=== PATIENT | female | born 1940 | race Caucasian/White ===

== ENCOUNTER 2023-04-26 13:23 | Outpatient (OUT) | payer MEDICARE, SELFPAY ==
--- NOTE | 2023-04-26 13:43 | PM.CN ---
Consult Note: HPI Data of Consult Patient: known to practice within the last 3 years Consult date: 04/26/23 Requesting Physician: BUSTER BOYKIN NP Primary Care Provider: SHANDA CLARK Consult Narrative Narrative: Patient is here for f/u of low back pain. Pain 3/10 unchanged from last visit . No radicular sx today. No new sensorimotor or bowel or bladder issues. No adverse medication SE. Medication regimen assists patient in ability to complete ADLs. [id number]. She states she used to see ortho for knee injections. She states they no longer do the injections. She would like to start getting them here. She states last injection was 08/03 with gel in right knee and steroid left knee. We will get records from there. We discussed PT for strengthening and she declined. cc:: CC: BUSTER BOYKIN NP Review of Systems ROS Status of ROS 10 or more systems reviewed and unremarkable except as noted in history and below Musculoskeletal Reports: back pain and joint pain Exam Constitutional Documenting provider has reviewed patient's vital signs: yes Common normals: no apparent distress, oriented x3, healthy appearing, alert and well nourished Orientation/consciousness: Yes awake, Yes oriented to person, Yes oriented to place and Yes oriented to time HENMT Common normals: normocephalic, nasal mucous membranes and turbinates normal and moist oral mucous membranes Respiratory Common normals: normal respiratory effort, no retractions and no use of accessory muscles Effort & inspection: able to speak in complete sentences and symmetric chest movement Back & Pelvis Lumbar spine/lower back: normal to inspection, ROM limited, pain with ROM, paraspinal muscle tenderness and other soft tissue findings (positive facet load) Extremity Common normals: normal capillary refill Other: bilat knee enlargement, muscle strength 3/5 bilat with intact sensation. walks with walker Assessment and Plan Assessment and Plan (1) Lumbar spondylosis: (2) Muscle spasm: (3) Knee osteoarthritis: Plan f/u in 3 months records from ortho
== END 2023-04-26 13:24 ==
PROVIDERS: PCP Family Medicine; Visit Provider Nurse Practitioner
DX: M47.816 Spondylosis without myelopathy or radiculopathy, lumbar region (principal); M62.838 Other muscle spasm; M17.9 Osteoarthritis of knee, unspecified
CPT/HCPCS: G0463

== ENCOUNTER 2023-05-16 09:07 | Outpatient (OUT) | payer MEDICARE, SELFPAY ==
[2023-05-16 09:56] LABS: Estimated Average Glucose 174 mg/dL; Glycohemoglobin A1C 7.7 % (4.5-6.2)
[2023-05-16 10:51] LABS: Alanine Aminotransferase 35 U/L (14-59); Albumin Globulin Ratio 0.8; Albumin Level 3.3 g/dL (3.4-5.0); Alkaline Phosphatase 135 U/L (46-116); Anion Gap 13.1; Aspartate Amino Transferase 23 U/L (15-37); BUN Creatinine Ratio 28.2; Bilirubin Total 0.4 mg/dL (0.2-1.0); Calcium 9.8 mg/dL (8.5-10.1); Carbon Dioxide 28.2 mmol/L (21.0-32.0); Chloride 103 mmol/L (98-107); Chol HDL Ratio 2.9; Cholesterol 162 mg/dL (<=200); Estimated GFR (African America 33 (>=60); Estimated GFR (Non-African Ame 27 (>=60); Globulin 4.1 g/dL; Glucose 179 mg/dL (74-106); HDL Cholesterol 55 mg/dL (40-60); Potassium 4.3 mmol/L (3.5-5.1); Sodium 140 mmol/L (136-145); Thyroid Stimulating Hormone 3.503 uIU/mL (0.358-3.740); Total Protein 7.4 g/dL (6.4-8.2); Triglycerides 205 mg/dL (<=150)
== END 2023-05-16 09:08 | disposition home or self-care (01) ==
LOC: LAB 09:07
PROVIDERS: PCP Family Medicine; Visit Provider Family Medicine
DX: E11.22 Type 2 diabetes mellitus with diabetic chronic kidney disease (principal); I12.9 Hypertensive chronic kidney disease with stage 1 through stage 4 chronic kidney disease, or unspecified chronic kidney disease; N18.32 Chronic kidney disease, stage 3b; Z79.4 Long term (current) use of insulin; E78.2 Mixed hyperlipidemia
CPT/HCPCS: 36415; 80053; 80061; 83036; 84443

== ENCOUNTER 2023-07-26 13:19 | Outpatient (OUT) | payer MEDICARE, SELFPAY ==
--- NOTE | 2023-07-26 13:31 | PM.CN ---
Consult Note: HPI Data of Consult Patient: known to practice within the last 3 years Requesting Physician: BUSTER BOYKIN NP Primary Care Provider: SHANDA CLARK Consult Narrative Reason for consult: f/u Narrative: Adore Wolff a pleasant 82 year old female presents for evaluation of chronic back and bilateral knee pain. Today rating pain 4/10. Is interested in bilateral knee injections which she has benefitted from in the past. cc:: CC: BUSTER BOYKIN NP Review of Systems ROS Status of ROS 10 or more systems reviewed and unremarkable except as noted in history and below Musculoskeletal Reports: joint pain (bilateral Knees) Meds Home Medications and Allergies Home Medications Medication Instructions Recorded Confirmed Type GLUCOSAMINE DAILY 04/26/23 History PRO AIR 04/26/23 History RAMIPRIDE 10 mg DAILY 04/26/23 History allopurinol 200 mg tablet 200 mg PO DAILY 04/26/23 04/26/23 History aspirin 81 mg tablet,delayed 81 mg PO DAILY 04/26/23 04/26/23 History release atorvastatin 80 mg tablet 80 mg PO DAILY 04/26/23 04/26/23 History baclofen 10 mg tablet 10 mg PO DAILY 04/26/23 04/26/23 History fluticasone furoate 100 1 inh inhalation DAILY 04/26/23 04/26/23 History mcg-vilanterol 25 mcg/dose inhalation powder (Breo Ellipta) furosemide 80 mg tablet 80 mg PO BID 04/26/23 04/26/23 History furosemide 80 mg tablet (Lasix) 80 mg PO BID 04/26/23 04/26/23 History insulin glargine 100 unit/mL 50 unit subcut DAILY 04/26/23 04/26/23 History subcutaneous solution (Lantus U-100 Insulin) insulin lispro 100 unit/mL 6 unit subcut TID 04/26/23 04/26/23 History subcutaneous pen metoclopramide HCl 10 mg tablet 10 mg PO BID 04/26/23 04/26/23 History omeprazole 20 mg tablet,delayed 20 mg PO BID 04/26/23 04/26/23 History release pregabalin 50 mg capsule (Lyrica) 50 mg PO BID 04/26/23 04/26/23 History theophylline 400 mg 400 mg PO DAILY 04/26/23 04/26/23 History tablet,extended release 24 hr tramadol 100 mg tablet 100 mg PO DAILY 04/26/23 04/26/23 History Allergies Allergy/AdvReac Type Severity Reaction Status Date / Time adhesive tape Allergy Unknown Verified 04/26/23 14:45 povidone-iodine Allergy Unknown Verified 04/26/23 14:45 [From Betadine] red dye Allergy Unknown Verified 04/26/23 14:45 Sulfa (Sulfonamide Allergy Unknown Verified 04/26/23 14:45 Antibiotics) tetracycline Allergy Unknown Verified 04/26/23 14:45 Exam Constitutional Documenting provider has reviewed patient's vital signs: yes Common normals: no apparent distress, oriented x3, healthy appearing, alert and well nourished General appearance: cooperative HENMT Common normals: normocephalic, hearing grossly normal bilaterally and moist oral mucous membranes Head and scalp: normocephalic Eye Common normals: PERRL Pupil: PERRL Neck & C-Spine Common normals: full ROM General: normal visual inspection Chest Common normals: inspection of chest normal Respiratory Common normals: normal respiratory effort, no retractions and no use of accessory muscles Back & Pelvis Lumbar spine/lower back: ROM limited and pain with ROM Extremity Right lower extremity: knee joint Left lower extremity: knee joint Other: enlarged diameter bilateral knees. pain with rom and weight bearing. limited ROM due to pain Neuro Common normals: oriented x3, CN's II-XII intact bilaterally, moves all extremities, no focal motor deficits, no sensory deficits noted and deep tendon reflexes 2+ bilaterally Sensorium/orientation: alert Gait (neuro): assistive device used walker Motor exam: strength 5/5 throughout and no movement abnormalities noted Psych Common normals: mental status grossly normal, thought process normal, cooperative, affect normal, speech normal and activity/motor behavior normal Speech: normal speech Thought process: normal thought process Results Additional Findings Additional findings: I have checked an OAR[facility] report on this patient today and there are no aberrancies noted in the prescribing history.?? A drug screen was completed and reviewed within the last year, and if there has not been a drug screen completed we ordered one today to monitor higher risk, state monitored pain medication use. As part of providing excellent, safe, comprehensive care, the following was completed at our patient's visit: 1. A medication reconciliation and review to ensure accurate knowledge of current/active medications, including asking our patients to inform us about any [id number] medications or herbal remedies/nutritional supplements/alternative remedies. 2. A review to specifically ensure our patients have had annual screening for: elevated body mass index (BMI), tobacco use, screening for depression, and screening for unhealthy alcohol use. When screening is concerning, patients are provided with education and the specific recommendation to discuss the concerning health issue and treatment options with their primary care provider. Assessment and Plan Assessment and Plan (1) Knee osteoarthritis: (2) Muscle spasm: (3) Lumbar spondylosis: (4) Bilateral knee pain: (5) Chronic prescription opiate use: Assessment and Plan: I feel these medications are improving the patient's quality of life and allow them to tolerate activities of daily living as well as participate in recreational activity.? The patient does not report intolerable side effects. The patient is NOT opioid naive and non-pharmacologic and non-opioid treatment has failed to significantly relieve the patient's pain and improve functionality. The patient has a diagnosis that is related to a somatic or visceral pain etiology. ? ?? I reviewed with the patient the potential risks and side effects with the use of? opioid medications including but not limited to respiratory depression,? sedation, and even . I verified the patient has access to naloxone should? these effects occur. I advised the patient to avoid the use of any other? sedation substances including alcohol, THC, and benzodiazepines while? taking opioid medications due to the risk of compounding side effects and? detrimental outcomes. I reviewed the PRACTICE MANAGER, pain treatment agreement, urine? drug screen, and opioid start talking forms. The patient was advised to let? their family know they had Naloxone in case they would need to administer? the medication.? ? Plan continue current medication regimen, tolerating well without side effects patients was argumentative and disruptive at todays visit in regards to opiate prescription and fill dates, educated on the regulations regarding opioids. Continued to be argumentative and asked for additional pills for as needed so she does not run out. proceed with bialteral knee injections in OR under fluoroscopy with gel one declining PT and additional therapy for back pain f/u after injection
== END 2023-07-26 13:20 | disposition home or self-care (01) ==
PROVIDERS: PCP Family Medicine; Visit Provider Nurse Practitioner
DX: M17.9 Osteoarthritis of knee, unspecified (principal); M62.838 Other muscle spasm; M47.816 Spondylosis without myelopathy or radiculopathy, lumbar region; M25.562 Pain in left knee; M25.561 Pain in right knee; Z79.891 Long term (current) use of opiate analgesic
CPT/HCPCS: G0463

== ENCOUNTER 2023-08-13 10:09 | Outpatient (OUT) | payer MEDICARE, SELFPAY ==
[2023-08-13 10:40] LABS: Hematocrit 35.3 % (36.0-48.0); Hemoglobin 11.4 g/dL (12.0-16.0); Mean Corpuscular HGB Conc 32.3 g/dL (29.9-35.2); Mean Corpuscular Hemoglobin 30.6 pg (26.7-34.0); Mean Corpuscular Volume 94.9 fL (81.0-99.0); Mean Platelet Volume 11.1 fL (9.5-13.5); Platelet Count 196 10^3/uL (150-450); Red Blood Count 3.72 10^6/uL (4.20-5.40); Red Cell Distribution Width 15.5 % (11.0-15.0); White Blood Count 6.6 10^3/uL (4.0-11.0)
[2023-08-13 11:51] LABS: Albumin Level 3.3 g/dL (3.4-5.0); Anion Gap 13.7; BUN Creatinine Ratio 21.7; Calcium 9.3 mg/dL (8.5-10.1); Carbon Dioxide 27.5 mmol/L (21.0-32.0); Chloride 102 mmol/L (98-107); Estimated GFR (African America 25 (>=60); Estimated GFR (Non-African Ame 20 (>=60); Glucose 208 mg/dL (74-106); Magnesium 1.4 mg/dL (1.8-2.4); Phosphorus 4.1 mg/dL (2.6-4.7); Potassium 4.2 mmol/L (3.5-5.1); Sodium 139 mmol/L (136-145); Uric Acid 4.7 mg/dL (2.6-6.0)
[2023-08-13 11:52] LABS: Percent Iron Saturation 21.9 %
[2023-08-13 12:38] LABS: Bilirubin Urine NEGATIVE (NEGATIVE); Blood Urine TRACE-I (NEGATIVE); Color Urine LT. YELLOW (YELLOW); Glucose Urine UA >=1000 mg/dL (NEGATIVE); Ketones Urine NEGATIVE (NEGATIVE); Leukocyte Esterase Urine MODERATE (NEGATIVE); Nitrite Urine NEGATIVE (NEGATIVE); Protein Urine TRACE mg/dL (NEG/TRACE); Urobilinogen Urine 0.2 EU/dL (0.2-1.0)
[2023-08-13 12:40] LABS: Clarity Urine SLIGHTLY CLOUDY (CLEAR)
[2023-08-13 12:46] LABS: Creatinine Urine Random 96.96 mg/dL (20.00-300.00); Protein Creatinine Ratio Urine 0.26; Total Protein Urine Random 25.4 mg/dL (<=11.9)
[2023-08-13 12:49] LABS: Bacteria Urine TRACE #/HPF (NONE SEEN); Cast Seen? NONE SEEN #/LPF (NONE SEEN); Crystals Seen? None Seen #/HPF (None Seen); Mucus Urine NONE SEEN (NONE SEEN); RBC Urine 0-2 #/HPF (0-2); Squamous Epithelial Cell Urine NONE SEEN #/LPF (NONE/RARE); WBC Urine 75-100 #/HPF (NONE SEEN)
[2023-08-14 13:10] LABS: PTH, Intact 159 pg/mL (15-65)
== END 2023-08-13 10:10 | disposition home or self-care (01) ==
LOC: LAB 10:09
PROVIDERS: PCP Family Medicine; Visit Provider Internal Medicine
DX: I12.9 Hypertensive chronic kidney disease with stage 1 through stage 4 chronic kidney disease, or unspecified chronic kidney disease (principal); E11.22 Type 2 diabetes mellitus with diabetic chronic kidney disease; N25.81 Secondary hyperparathyroidism of renal origin; D63.1 Anemia in chronic kidney disease; E79.0 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 inflammatory arthritis and tophaceous disease; N18.32 Chronic kidney disease, stage 3b
CPT/HCPCS: 36415; 80069; 81001; 82306; 82570; 82728; 83540; 83550; 83735; 83970; 84156; 84550; 85027

== ENCOUNTER 2023-08-14 10:33 | Day surgery (SDC) | payer MEDICARE, SELFPAY ==
[2023-08-14 11:21] VITALS: BP 172/79; PULSE 94; RESP 18; TEMP 36.4; O2SAT 96
[2023-08-14 11:27] LABS: Glucometer 192 mg/dL (74-106)
[2023-08-14] MEDS: LIDOCAINE HCL 2% PF 100 MG/5 ML VIAL INJ (12:16)
[2023-08-14] MEDS: IOHEXOL 240 MG/ML - 10 ML VIAL INJ (12:16)
[2023-08-14 12:21] VITALS: BP 171/71; BP 174/76; PULSE 74; PULSE 75; RESP 16; RESP 18; O2SAT 95; O2SAT 96
--- NOTE | 2023-08-14 13:03 | W.PM.PROCNOT ---
Date of procedure: 08/14/23 Pre-op diagnosis: Bilateral knee osteoarthritis Post-op diagnosis: same as pre-op Procedure: Procedure: Bilateral knee joint injection using Gel One 3ml. Immediate complications none. Anesthesia: 2% lidocaine plain for skin wheal. After informed consent was obtained, patient brought to the OR placed in the supine position. Skin overlying the area was prepped and draped using Betadine. 25-gauge 1/2 inch needle was used for skin wheal over the medial aspect of the right knee joint identified under fluoroscopy. Omnipaque dye was used to confirm needle tip placement within the knee joint space 0.5 mL use of the injection. Subsequently 3ml of Gel One was injected into the space. No indication of intravascular or intraneuronal needle tip placement or injection was noted post procedure. The needle was removed, patient transferred to Recovery room in stable condition to discharged home after meeting criteria. Anesthesia: Local Surgeon: Harini Carrillo Condition: stable
== END 2023-08-14 12:35 | disposition home or self-care (01) ==
LOC: SURGOUT 10:34
PROVIDERS: PCP Family Medicine; Visit Provider Anesthesiology Pain Medicine
DX: M17.0 Bilateral primary osteoarthritis of knee (principal); Z79.4 Long term (current) use of insulin
CPT/HCPCS: 20610; 36415; 77002; 82948; J7326; Q9966

== ENCOUNTER 2023-08-30 12:48 | Outpatient (OUT) | payer MEDICARE, SELFPAY ==
--- NOTE | 2023-08-30 13:36 | PM.CN ---
Consult Note: HPI Data of Consult Requesting Physician: Pao Good NP Primary Care Provider: SHANDA CLARK Consult Narrative Reason for consult: f/u Narrative: Adore Wolff an 82 year old female presents for evaluation and management of chronic knee pain and low back pain with radiculopathy. Today rating pain 4/10 in low back and bilateral legs. Knees >90% improvement since gel-1 injections. Patient has been following with nephrology who dc'd her jardiance and decreased lyrica to 50mg daily as GFR is less than 30. Patient would like to discuss continuing medication management for pain. cc:: CC: aPo Good NP Review of Systems ROS Status of ROS 10 or more systems reviewed and unremarkable except as noted in history and below Musculoskeletal Reports: back pain Meds Home Medications and Allergies Home Medications Medication Instructions Recorded Confirmed Type GLUCOSAMINE DAILY 04/26/23 History PRO AIR 04/26/23 History RAMIPRIDE 10 mg DAILY 04/26/23 History allopurinol 200 mg tablet 200 mg PO DAILY 04/26/23 08/14/23 History aspirin 81 mg tablet,delayed 81 mg PO DAILY 04/26/23 08/14/23 History release atorvastatin 80 mg tablet 80 mg PO DAILY 04/26/23 08/14/23 History baclofen 10 mg tablet 10 mg PO DAILY 04/26/23 08/14/23 History fluticasone furoate 100 1 inh inhalation DAILY 04/26/23 08/14/23 History mcg-vilanterol 25 mcg/dose inhalation powder (Breo Ellipta) furosemide 80 mg tablet 80 mg PO BID 04/26/23 08/14/23 History furosemide 80 mg tablet (Lasix) 80 mg PO BID 04/26/23 08/14/23 History insulin glargine 100 unit/mL 50 unit subcut DAILY 04/26/23 08/14/23 History subcutaneous solution (Lantus U-100 Insulin) insulin lispro 100 unit/mL 6 unit subcut TID 04/26/23 08/14/23 History subcutaneous pen metoclopramide HCl 10 mg tablet 10 mg PO BID 04/26/23 08/14/23 History omeprazole 20 mg tablet,delayed 20 mg PO BID 04/26/23 08/14/23 History release pregabalin 50 mg capsule (Lyrica) 50 mg PO BID 04/26/23 08/14/23 History theophylline 400 mg 400 mg PO DAILY 04/26/23 08/14/23 History tablet,extended release 24 hr tramadol 100 mg tablet 100 mg PO DAILY 04/26/23 08/14/23 History tramadol 100 mg tablet,extended 100 mg PO DAILY #30 tabs 08/14/23 Rx release 24 hr Allergies Allergy/AdvReac Type Severity Reaction Status Date / Time adhesive tape Allergy Unknown Verified 08/14/23 11:19 povidone-iodine Allergy Unknown Verified 08/14/23 11:19 [From Betadine] red dye Allergy Unknown Verified 08/14/23 11:19 Sulfa (Sulfonamide Allergy Unknown Verified 08/14/23 11:19 Antibiotics) tetracycline Allergy Unknown Verified 08/14/23 11:19 Exam Constitutional Documenting provider has reviewed patient's vital signs: yes Common normals: no apparent distress, oriented x3, healthy appearing, alert and well nourished General appearance: cooperative HENMT Common normals: normocephalic, hearing grossly normal bilaterally and moist oral mucous membranes Head and scalp: normocephalic Eye Common normals: PERRL Pupil: PERRL Neck & C-Spine Common normals: full ROM General: normal visual inspection Chest Common normals: inspection of chest normal Respiratory Common normals: normal respiratory effort, no retractions and no use of accessory muscles Back & Pelvis Lumbar spine/lower back: ROM limited, pain with ROM and straight leg raise negative bilaterally Other: radiculopathy to bilateral legs at times Extremity Right lower extremity: knee joint Left lower extremity: knee joint Other: enlarged diameter bilateral knees. Neuro Common normals: oriented x3, CN's II-XII intact bilaterally, moves all extremities, no focal motor deficits, no sensory deficits noted and deep tendon reflexes 2+ bilaterally Sensorium/orientation: alert Gait (neuro): antalgic and assistive device used walker Motor exam: strength 5/5 throughout and no movement abnormalities noted Psych Common normals: mental status grossly normal, thought process normal, cooperative, affect normal, speech normal and activity/motor behavior normal Speech: normal speech Thought process: normal thought process Assessment and Plan Assessment and Plan (1) Lumbar radiculopathy, chronic: (2) Lumbar spondylosis: (3) Bilateral knee pain: (4) Knee osteoarthritis: (5) Chronic prescription opiate use: (6) Muscle spasm: Plan due to extreme discomfort from previous DYLAN we discussed TFESI with Dr Curtis as an alternative in the future. Would order bilateral L4-5 TFESI continue current medications, tolerating well without side effect GFR < 30, lyrica 50mg QD continue f/u with nephrology declined trigger point injections f/u 3 months
== END 2023-08-30 12:49 | disposition home or self-care (01) ==
LOC: PM 12:48
PROVIDERS: PCP Family Medicine; Visit Provider Nurse Practitioner
DX: M54.16 Radiculopathy, lumbar region (principal); M47.896 Other spondylosis, lumbar region; M25.562 Pain in left knee; M25.561 Pain in right knee; M17.9 Osteoarthritis of knee, unspecified; Z79.891 Long term (current) use of opiate analgesic; M62.838 Other muscle spasm
CPT/HCPCS: G0463

== ENCOUNTER 2023-10-15 08:58 | Day surgery (SDC) | payer MEDICARE, SELFPAY ==
[2023-10-15 10:00] LABS: Glucometer 145 mg/dL (74-106)
[2023-10-15 10:02] VITALS: BP 160/81; PULSE 70; RESP 18; TEMP 36.5; O2SAT 94
[2023-10-15] MEDS: IOHEXOL 240 MG/ML - 10 ML VIAL 24 MG INJ (10:34)
[2023-10-15] MEDS: BUPIVACAINE HCL 0.25% PF 25 MG/10 ML VIAL INJ (10:34)
[2023-10-15] MEDS: TRIAMCINOLONE ACETONIDE 40 MG/ML VIAL 80 MG INJ (10:34)
[2023-10-15] MEDS: 0.9 % SODIUM CHLORIDE 10 ML INJ (10:34)
[2023-10-15] MEDS: LIDOCAINE HCL 2% PF 100 MG/5 ML VIAL 3 ML INJ (10:34)
--- NOTE | 2023-10-15 10:40 | W.PM.PROCNOT ---
Date of procedure: 10/15/23 Pre-op diagnosis: Lumbar stenosis with neurogenic claudication Post-op diagnosis: same as pre-op Procedure: Procedure: Bilateral L4-5 transforaminal epidural steroid injection Medications: Bupivacaine 0.25% 2cc, lidocaine 2% 1cc, kenalog 80mg The patient was seen and examined in the preoperative holding area.? Informed consent was obtained and placed on the chart.? Patient was brought to the medical procedure unit and placed in the prone position where a timeout was completed verifying the correct patient, procedure site, position, and planned special equipment using sterile aseptic technique.? Under direct fluoroscopic visualization a 25-gauge Quincke tipped spinal needle was advanced at level left L4-5 to the designated neural foramen where contrast dye was injected to show adequate spread.? There was no evidence of vascular or adverse uptake.? Epidural spread was appreciated.? The above-mentioned injectate was then placed in a 1.5 mL aliquot preceded by negative aspiration.? The needle was removed. The same procedure, at the same level, was completed on the opposite side. ? Patient was taken to the postprocedural recovery area and monitored for an appropriate length of time before found suitable for discharge in the accompaniment of a responsible adult. Anesthesia: Local Surgeon: Christian Curtis Pathology: none sent Condition: stable Disposition: no change
[2023-10-15 10:43] VITALS: BP 217/99; BP 221/98; PULSE 72; PULSE 75; RESP 16; RESP 18; O2SAT 98; O2SAT 99
== END 2023-10-15 10:45 | disposition home or self-care (01) ==
PROVIDERS: PCP Family Medicine; Visit Provider Anesthesiology
DX: M48.062 Spinal stenosis, lumbar region with neurogenic claudication (principal); Z79.4 Long term (current) use of insulin
CPT/HCPCS: 36415; 64483; 82948; Q9966

== ENCOUNTER 2023-10-24 15:06 | Outpatient (OUT) | payer MEDICARE, SELFPAY ==
--- NOTE | 2023-10-24 15:41 | PM.CN ---
Consult Note: HPI Data of Consult Patient: known to practice within the last 3 years Requesting Physician: Pao Good NP Primary Care Provider: SHANDA CLARK Consult Narrative Reason for consult: f/u Narrative: Adore Wolff an 82 year old female presents for evaluation and management of chronic low back pain. Today pain 01/19. Patient reporting 80% ongoing relief of symptoms as a result of recent bilateral L4-5 TFESI. Patients CKD continues to remain GFR < 30. Patient finds benefit from current medication regimen, with mild drowsiness. cc:: CC: Pao Good NP Review of Systems ROS Status of ROS 10 or more systems reviewed and unremarkable except as noted in history and below Musculoskeletal Reports: back pain Meds Home Medications and Allergies Home Medications Medication Instructions Recorded Confirmed Type GLUCOSAMINE DAILY 04/26/23 History PRO AIR 04/26/23 History RAMIPRIDE 10 mg DAILY 04/26/23 History allopurinol 200 mg tablet 200 mg PO DAILY 04/26/23 10/15/23 History aspirin 81 mg tablet,delayed 81 mg PO DAILY 04/26/23 10/15/23 History release atorvastatin 80 mg tablet 80 mg PO DAILY 04/26/23 10/15/23 History baclofen 10 mg tablet 10 mg PO DAILY 04/26/23 10/15/23 History fluticasone furoate 100 1 inh inhalation DAILY 04/26/23 10/15/23 History mcg-vilanterol 25 mcg/dose inhalation powder (Breo Ellipta) furosemide 80 mg tablet 80 mg PO BID 04/26/23 10/15/23 History furosemide 80 mg tablet (Lasix) 80 mg PO BID 04/26/23 10/15/23 History insulin glargine 100 unit/mL 50 unit subcut DAILY 04/26/23 10/15/23 History subcutaneous solution (Lantus U-100 Insulin) insulin lispro 100 unit/mL 6 unit subcut TID 04/26/23 10/15/23 History subcutaneous pen metoclopramide HCl 10 mg tablet 10 mg PO BID 04/26/23 10/15/23 History omeprazole 20 mg tablet,delayed 20 mg PO BID 04/26/23 10/15/23 History release pregabalin 50 mg capsule (Lyrica) 50 mg PO BID 04/26/23 10/15/23 History theophylline 400 mg 400 mg PO DAILY 04/26/23 10/15/23 History tablet,extended release 24 hr tramadol 100 mg capsule 100 mg PO DAILY PRN pain #30 caps 09/13/23 10/15/23 Rx 24h,extended release(25-75) Allergies Allergy/AdvReac Type Severity Reaction Status Date / Time adhesive tape Allergy Unknown Verified 10/15/23 09:55 povidone-iodine Allergy Unknown Verified 10/15/23 09:55 [From Betadine] red dye Allergy Unknown Verified 10/15/23 09:55 Sulfa (Sulfonamide Allergy Unknown Verified 10/15/23 09:55 Antibiotics) tetracycline Allergy Unknown Verified 10/15/23 09:55 Exam Constitutional Documenting provider has reviewed patient's vital signs: yes Common normals: no apparent distress, oriented x3, healthy appearing, alert and well nourished General appearance: cooperative HENMT Common normals: normocephalic, hearing grossly normal bilaterally and moist oral mucous membranes Head and scalp: normocephalic Eye Common normals: PERRL Pupil: PERRL Neck & C-Spine Common normals: full ROM General: normal visual inspection Chest Common normals: inspection of chest normal Respiratory Common normals: normal respiratory effort, no retractions and no use of accessory muscles Back & Pelvis Lumbar spine/lower back: ROM limited, pain with ROM and straight leg raise negative bilaterally Extremity Right lower extremity: knee joint Left lower extremity: knee joint Other: enlarged diameter bilateral knees. Neuro Common normals: oriented x3, CN's II-XII intact bilaterally, moves all extremities, no focal motor deficits, no sensory deficits noted and deep tendon reflexes 2+ bilaterally Sensorium/orientation: alert Gait (neuro): antalgic and assistive device used walker Motor exam: strength 5/5 throughout and no movement abnormalities noted Psych Common normals: mental status grossly normal, thought process normal, cooperative, affect normal, speech normal and activity/motor behavior normal Speech: normal speech Thought process: normal thought process Results Additional Findings Additional findings: I have checked an [facility]AR[facility] report on this patient today and there are no aberrancies noted in the prescribing history.?? A drug screen was completed and reviewed within the last year, and if there has not been a drug screen completed we ordered one today to monitor higher risk, state monitored pain medication use. As part of providing excellent, safe, comprehensive care, the following was completed at our patient's visit: 1. A medication reconciliation and review to ensure accurate knowledge of current/active medications, including asking our patients to inform us about any [id number] medications or herbal remedies/nutritional supplements/alternative remedies. 2. A review to specifically ensure our patients have had annual screening for: elevated body mass index (BMI), tobacco use, screening for depression, and screening for unhealthy alcohol use. When screening is concerning, patients are provided with education and the specific recommendation to discuss the concerning health issue and treatment options with their primary care provider. Assessment and Plan Assessment and Plan (1) Lumbar radiculopathy, chronic: (2) Chronic prescription opiate use: (3) Bilateral knee pain: (4) Knee osteoarthritis: (5) Muscle spasm: (6) Lumbar spondylosis: (7) Chronic kidney disease: Assessment and Plan: GFR less than 30 Plan benefits vs risks discussed with current medication regimen and CKD with GFR less than 30 stop ER tramadol switch to tramadol 50mg BID PRN caution baclofen 10mg HS continue lyrica 50mg daily (max dose per employment agency manager) f/u 2-3 months, consider repeat DYLAN
== END 2023-10-24 15:07 | disposition home or self-care (01) ==
LOC: PM 15:06
PROVIDERS: PCP Family Medicine; Visit Provider Nurse Practitioner
DX: M54.16 Radiculopathy, lumbar region (principal); Z79.891 Long term (current) use of opiate analgesic; M25.561 Pain in right knee; M25.562 Pain in left knee; M17.0 Bilateral primary osteoarthritis of knee; M62.838 Other muscle spasm; M47.816 Spondylosis without myelopathy or radiculopathy, lumbar region; N18.9 Chronic kidney disease, unspecified
CPT/HCPCS: G0463

== ENCOUNTER 2023-10-31 09:12 | Outpatient (OUT) | payer MEDICARE, SELFPAY ==
--- OUTSIDE RECORDS SUMMARY | 2023-10-31 09:36 | XMS_ITS | CCD ---
Author Name Unknown Address [address] [place] [address] Organization [facility] Care Team Providers Care Network Project Manager Name Role Phone ROBERTO PARHAMAB A Attending Unavailable MOE PARHAM Admitting Unavailable ALEISHALOAMY, FERNIE Referring Unavailable FURLONG, FERNIE Primary Care Unavailable Tammy, Gia Unavailable STERN ., DR LUISA Page Attending Unavailable STERN ., DR LUISA Page Consulting Unavailable FURLONG, DR FERNIE Ricketts Primary Care Unavailable STERN ., DR LUISA Page Admitting Unavailable STERN ., DR LUISA Page Attending Unavailable CAMPUZANO ., JONNY Consulting Unavailable FURLONG, DR FERNIE Ricketts Primary Care Unavailable STERN ., DR LUISA Page Admitting Unavailable STERN ., DR LUISA Page Attending Unavailable CAMPUZANO ., JONNY Consulting Unavailable FURLONG, DR FERNIE Ricketts Primary Care Unavailable STERN ., DR LUISA Page Admitting Unavailable FURLONG, DR FERNIE Ricketts Primary Care Unavailable LAKSHMIPATHY ., NARJAZMIN Attending Marianela vailable LAKSHMIPATHY ., NARENDMARJANATH Admitting Marianela vailable STERN ., DR LUISA Page Attending Unavailable CAMPUZANO ., JONNY Consulting Unavailable FURLONG, DR FERNIE Ricketts Primary Care Unavailable STERN ., DR LUISA Page Admitting Unavailable STERN ., DR LUISA Page Attending Unavailable CAMPUZANO ., JONNY Consulting Unavailable FURLONG, DR FERNIE Ricketts Primary Care Unavailable STERN ., DR LUISA Page Admitting Unavailable TAMMY, GIA Admitting Unavailable TAMMY, GIA Attending Unavailable TAMMY, GIA Consulting Unavailable FURLONG, DR FERNIE Ricketts Primary Care Unavailable TAMMY, GIA Attending Unavailable TAMMY, GIA Consulting Unavailable TAMMY, GIA Admitting Unavailable FURLONG, DR FERNIE Ricketts Primary Care Unavailable TAMMY, GIA Admitting Unavailable TAMMY, GIA Attending Unavailable TAMMY, GIA Consulting Unavailable FURLONG, DR FERNIE Ricketts Primary Care Unavailable FURLONG, DR FERNIE Ricketts Admitting Unavailable FURLONG, DR FERNIE Ricketts Attending Unavailable FURLONG, DR FERNIE Ricketts Consulting Unavailable FURLONG, DR FERNIE Ricketts Primary Care Unavailable STERN ., DR LUISA Page Attending Unavailable JONNY HERRERA Consulting Unavailable FURLONG, DR FERNIE Ricketts Primary Care Unavailable STERN ., DR LUISA Page Admitting Unavailable Kirsten RAND, Christian Rodríguez Attending Unavailable Allergies Allergy Classification Reported Allergen(s) Allergy Type Date of Onset Reaction(s) Facility Adhesive Tape (1 source) Adhesive Tape Substance Allergy 3 [facility] Povidone-Iodine (1 source) Povidone-Iodine Drug Allergy 3 [facility] Sulfonamides (antibiotic) (1 source) Sulfonamides (Antibiotic) Drug Allergy 3 [facility] Tetracyclines (antibiotic) (1 source) Tetracyclines Drug Allergy 3 [facility] (8 sources) Povidone-Iodine Drug Allergy rash [email or web address] [facility] Other (9 sources) Sulfonamides (Antibiotic) Propensity to adverse reactions rash [facility] Other (9 sources) Tetracycline Drug Allergy hives [facility] Other (9 sources) Adhesive 1 x6yd Drug allergy rash [facility] Other (9 sources) Amlodipine & Diet Manage Prod Drug allergy rash [facility] Other (2 sources) Povidone-Iodine; Translations: [Betadine] Drug Allergy 3 rash [facility] (1 source) Contrast media Drug allergy (disorder) [facility] (1 source) Desonide Drug Allergy 3 [facility] (1 source) Sulfonamides (Antibiotic) Drug allergy (disorder) 3 [facility] (1 source) Tetracycline Drug Allergy 3 [facility] Medications Current Medications Medication Drug Class(es) Dates Sig (Normalized) Sig (Original) acetaminophen 500 mg oral capsule (9 sources) take 1-2 capsules by mouth every six hours as needed Acetaminophen 500 mg 1-2 capsule as needed Orally every 6 hrs Active acetaminophen 325 mg / HYDROcodone bitartrate 5 mg oral tablet (3 sources) Opioid Agonist take 1 tablet by mouth every twelve hours HYDROcodone-Acetamino phen 5-325 MG 1 tablet as needed Orally TWICE A DAY Active [id number] 200 actuat albuterol 0.09 mg/actuat metered dose inhaler (7 sources) beta2-Adrenergic Agonist take 2 puff(s) by inhalation every six hours as needed ProAir HFA 108 (90 Base) MCG/ACT 2 puffs as needed Inhalation every 6 hrs Active allopurinol 100 mg oral tablet (10 sources) Xanthine Oxidase Inhibitor Allopurinol 100 mg TAKE 2 TABLETS ONCE DAILY Active take 1 tablet by willa th every twenty-four hours Allopurinol 100 MG 1 tablet Orally Once a day Active ASA 81 mg (9 sources) take 1 tablet by mouth once daily ASA 81 mg 1 Tablet Oral daily Active atorvastatin 80 mg oral tablet (9 sources) HMG-CoA Reductase Inhibitor take 1 tablet by mouth every twenty-four hours Atorvastatin Calcium 80 MG 1 Tablet Orally daily Active baclofen 10 mg oral tablet (9 sources) gamma-Aminobutyri c Acid-ergic Agonist take 1 tablet by mouth at bedtime Baclofen 10 MG 1 tablet with food or milk Orally at bedtime Active biotin 5 mg oral capsule (9 sources) take 1 capsule by mouth every twenty-four hours Biotin Maximum Strength 5000 MCG 1 capsule Orally Once a day Active Breo Ellipta 200-25 MCG/INH (2 sources) take 1 puff(s) by inhalation once daily Breo Ellipta 200-25 MCG/INH 1 puff Inhalation Once a day Active carvedilol 6.25 mg oral tablet (9 sources) alpha-Adrenergic Vince, beta-Adrenergic Vince take 1 tablet by mouth every twelve hours Carvedilol 6.25 MG 1 tablet with food Oral Twice a day Active 0.5 ml dulaglutide 1.5 mg/ml auto-injector (1 source) GLP-1 Receptor Agonist Trulicity 0.75 MG/0.5ML as directed Subcutaneous ONCE A WEEK Active 15 ml ferric carboxymaltose 50 mg/ml injection (3 sources) Start: 11-24-19 Injectafer 750 MG/15ML as directed Intravenous Nov, Active 30 actuat fluticasone furoate 0.2 mg/actuat / vilanterol 0.025 mg/actuat dry powder inhaler (7 sources) Corticosteroid, beta2-Adrenergic Agonist take 1 puff(s) by inhalation once daily Breo Ellipta 200-25 MCG/INH 1 puff Inhalation Once a day Active furosemide 40 mg oral tablet (16 sources) Loop Diuretic take 2 tablets by mouth every twelve hours Lasix 40 mg 2 Tablet Orally bid Active Glucosamine Chond Triple/Vit D - (9 sources) take 1 tablet by mouth twice daily Glucosamine Chond Triple/Vit D - 1 Tablet Orally bid Active insulin glargine 100 unt/ml injectable solution (9 sources) Insulin Analog inject 46 [IU] by subcutaneous injection once daily Lantus 100 UNIT/ML 46 UNITS Subcutaneous daily Active inject 50 [IU] by stallings bcutaneous injection once daily Lantus 100 UNIT/ML 50 UNITS Subcutaneous daily Active insulin lispro 100 unt/ml injectable solution (9 sources) Insulin Analog inject 6 [IU] by subcutaneous injection before lunch HumaLOG 100 UNIT/ML 6 UNITS Subcutaneous BEFORE LUNCH AND SUPPER Active magnesium oxide 400 mg oral tablet (1 source) Start: 022 take 1 tablet by mouth every twenty-four hours Magnesium Oxide 400 MG 1 tab(s) Orally Once a day for 90 day(s) Jul, Active metoclopramide 10 mg oral tablet (9 sources) Dopamine-2 Receptor Antagonist take 1 tablet by mouth every twenty-four hours Reglan 10 MG 1 tablet before meals Orally ONCE A DAY Active take 1 tablet by mouth every twe lve hours Reglan 10 MG 1 tablet before meals Orally Twice a day Active montelukast 10 mg oral tablet (9 sources) Leukotriene Receptor Antagonist take 1 tablet by mouth every twenty-four hours Montelukast Sodium 10 MG 1 Tablet Orally daily Active Multi For Her 50+ - (9 sources) Multi For Her 50 + - Orally Active [place] 3-6-9 Complex - (9 sources) [place] 3-6-9 Comp fawad - Orally Active omeprazole 20 mg delayed release oral capsule (9 sources) Proton Pump Inhibitor take 1 capsule by mouth every twenty-four hours Omeprazole 20 MG 1 cap(s) Orally Once a day Active take 1 capsule by mo uth every twelve hours Omeprazole 20 MG 1 cap(s) Orally bid Act hoang pregabalin 75 mg oral capsule (9 sources) take 1 capsule by mo uth every twenty-four hours Lyrica 75 MG 1 capsule Orally Once a day Active take 1 capsule by mouth every tw elve hours Lyrica 75 MG 1 capsule Orally Twice a day Active ProAir HFA 108 (90 Base) MCG/ACT (2 sources) take 2 puff(s) by inhalation every six hours as needed ProAir HFA 108 (90 Base) MCG/ACT 2 puffs as needed Inhalation every 6 hrs Active ramipril 10 mg oral capsule (9 sources) Angiotensin Converting Enzyme Inhibitor take 1 capsule by mouth every twenty-four hours Ramipril 10 MG 1 tablet Orally Once a day Active theophylline 400 mg extended release oral tablet (9 sources) Methylxanthine take 1 tablet by mouth every twenty-four hours Theophylline ER 400 MG 1 tablet Orally Once a day Active 24 hr traMADol hydrochloride 100 mg extended release oral tablet (9 sources) Opioid Agonist take 1 tablet by mouth every twenty-four hours traMADol HCl ER 100 MG 1 tablet Orally Once a day Active traMADol HCl 50 MG 1 Tablet Orally 1 TAB Q 6 HOURS PRN Active Problems Active Problems Problem Classification Problem Date Documented Date Episodic/Chronic Chronic kidney disease (20 sources) Chronic kidney disease stage 3; Translations: [Chronic kidney disease, stage 3 (moderate)] Onset: 2 Resolved: 2 Chronic Deficiency and other anemia (9 sources) Anemia of renal disease; Translations: [Anemia in chronic kidney disease] Chronic Deficiency and other anemia (6 sources) Anemia in chronic kidney disease; Translations: [ANEMIA IN CHRONIC KIDNEY DISEASE] Onset: 2 Resolved: 2 Chronic Diabetes mellitus with complications (19 sources) Type 2 diabetes mellitus; Translations: [Type 2 diabetes mellitus with diabetic chronic kidney disease] Onset: 2 Resolved: 2 Chronic Disorders of lipid metabolism (1 source) Mixed hyperlipidemia; Translations: [MIXED HYPERLIPIDEMIA] Onset: 2 Chronic Essential hypertension (1 source) Essential (primary) hypertension; Translations: [ESSENTIAL PRIMARY HYPERTENSION] Onset: 2 Chronic Hypertension with complications and secondary hypertension (20 sources) Hypertensive renal disease; Translations: [Hypertensive chronic kidney disease with stage 1 through stage 4 chronic kidney disease, or unspecified chronic kidney disease] Onset: 2 Resolved: 2 Chronic Other diseases of kidney and ureters (9 sources) Secondary hyperparathyroidism; Translations: [Secondary hyperparathyroidism of renal origin] Chronic Other diseases of kidney and ureters (6 sources) Secondary hyperparathyroidism of renal origin; Translations: [SEC HYPERPARATHYROIDISM RENAL ORIGN] Onset: 2 Resolved: 2 Chronic Other nervous system disorders (1 source) Other chronic pain; Translations: [OTHER CHRONIC PAIN] Onset: 2 Chronic Other nutritional; endocrine; and metabolic disorders (9 sources) Hypomagnesemia; Translations: [Hypomagnesemia] Chronic Other nutritional; endocrine; and metabolic disorders (2 sources) Hypomagnesemia Chronic Other nutritional; endocrine; and metabolic disorders (1 source) Obesity, unspecified; Translations: [OBESITY UNSPECIFIED] Onset: 2 Chronic Other nutritional; endocrine; and metabolic disorders (9 sources) H/O: metabolic disorder; Translations: [Personal history of other endocrine, nutritional and metabolic disease] Episodic Other nutritional; endocrine; and metabolic disorders (6 sources) 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 inflammatory arthritis and tophaceous disease; Translations: [HU W/O SIGNS IA AND TOPHACEOUS DZ] Onset: 2 Resolved: 2 Episodic Spondylosis; intervertebral disc disorders; other back problems (1 source) Postlaminectomy syndrome, not elsewhere classified; Translations: [POSTLAMINECTOMY SYNDROME NEC] Onset: 2 Chronic Spondylosis; intervertebral disc disorders; other back problems (11 sources) Intervertebral disc disorders with radiculopathy, lumbar region; Translations: [Spinal stenosis, lumbar region without neurogenic claudication] Onset: 2 Episodic Unclassified (3 sources) LOW BACK PAIN, UNSPECIFIED; Translations: [LOW BACK PAIN, UNSPECIFIED] Onset: 2 Past or Other Problems Problem Classification Problem Date Documented Da te Episodic/Chronic Chronic kidney disease (2 sources) Chronic kidney disease Other aftercare (1 source) prison (current) use of insulin; 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] Onset: 11-11-2022 Episodic Other connective tissue disease (1 source) Muscle wasting and atrophy, not elsewhere classified, unspecified site; Translations: [MUSCLE WASTING ATROPHY NEC UNS SITE] Onset: 04-27-2022 Episodic Unclassified (1 source) LOW BACK PAIN, UNSPECIFIED; Translations: [LOW BACK PAIN, UNSPECIFIED] Onset: 08-02-2022 Results Test Name Value Interpretation Reference Range Facil ity PTH INTACTon 01-16-2023 PTH, Intact 115 pg/mL Critically high 15-65 [facility] Comment on above: Performed By: #### M G, URIC, RENAL #### [facility] [address] [place] [address] Dr. Nacho Jeffery FERRITINon 01-15-2023 Ferritin [Mass/Vol] 304.0 ng/mL Critically high 8.0-252.0 [facility] Comment on above: Performed By: #### M Jamarcus URIC, RENAL #### [facility] [address] [place] [address] Dr. Nacho Jeffery HEMOGRAM AND PLATELon 2022 Hematocrit (Bld) [Volume fraction] 36.0 % Normal 3 6.0-48.0 [facility] Comment on above: Performed By: #### M Jamarcus URIC, RENAL #### [facility] [address] [place] [address] Dr. Nacho Jeffery Hemoglobin (Bld) [Mass/Vol] 11.6 g/dL Critically low 12.0 -16.0 [facility] Comment on above: Performed By: #### M G, URIC, RENAL #### [facility] [address] [place] [address] Dr. Nacho Jeffery MCH (RBC) [Entitic mass] 29.4 pg Normal 26.7-34.0 [facility] Comment on above: Performed By: #### M G, URIC, RENAL #### [facility] [address] [place] [address] Dr. Nacho Jeffery MCHC (RBC) [Mass/Vol] 32.2 g/dL Normal 29.9-35.2 [facility] Comment on above: Performed By: #### M G, URIC, RENAL #### [facility] [address] [address] [address] Nacho Jeffery MCV (RBC) [Entitic vol] 91.4 fL Normal 81.0-99.0 [facility] Comment on above: Performed By: #### M G, URIC, RENAL #### [facility] [address] [address] [address] Nacho Jeffery PLT 202 103/ul Normal 150-[address] [facility] Comment on above: Performed By: #### M G, URIC, RENAL #### [facility] [address] [address] [address] Nacho Jeffery RBC 3.94 106/ul Critically low 4.20-5.40 [facility] Comment on above: Performed By: #### M G, URIC, RENAL #### [facility] [address] [place] [address] Dr. Nacho Jeffery WBC 5.9 103/ul Normal 4.0-11.0 [facility] Comment on above: Performed By: #### M G, URIC, RENAL #### [facility] [address] [address] [address] Nacho Jeffery IRON AND TIBCon 01-15-2023 % SATURATION 23.4 % Normal [facility] Comment on above: Performed By: #### M G, URIC, RENAL #### [facility] [address] [address] [address] Nacho Jeffery Iron [Mass/Vol] 62.0 ug/dL Normal 50.0-170.0 [facility] Comment on above: Performed By: #### M G, URIC, RENAL #### [facility] [address] [address] [address] Nacho Jeffery TIBC DIRECT 265.0 ug/dL Normal 250.0-450.0 [facility] Comment on above: Performed By: #### M G, URIC, RENAL #### [facility] [address] [address] [address] Nacho Jeffery MAGNESIUMon 01-15-2023 Magnesium [Mass/Vol] 1.5 mg/dL Critically low 1.8-2.4 [facility] Comment on above: Performed By: #### M Jamarcus, URIC, RENAL #### [facility] [address] [address] [address] Nacho Jeffery RENAL FUNCTION PANELon 01-15 Albumin [Mass/Vol] 3.4 g/dL Normal 3.4-5.0 [facility] Comment on above: Performed By: #### M Jamarcus, URIC, RENAL #### [facility] [address] [place] [address] Dr. Nacho Jeffery Calcium [Mass/Vol] 9.2 mg/dL Normal 8.5-10.1 [facility] Comment on above: Performed By: #### M Jamarcus, URIC, RENAL #### [facility] [address] [place] [address] Dr. Nacho Jeffery Chloride [Moles/Vol] 104 mmol/L Normal 98-107 [facility] Comment on above: Performed By: #### M Jamarcus, URIC, RENAL #### [facility] [address] [place] [address] Dr. Nacho Jeffery CO2 [Moles/Vol] 30.8 mmol/L Normal 21.0-32.0 [facility] Comment on above: Performed By: #### M Jamarcus, URIC, RENAL #### [facility] [address] [place] [address] Dr. Nacho Jeffery Creatinine [Mass/Vol] 1.52 mg/dL Critically high 0.55-1.02 [facility] Comment on above: Performed By: #### M G, URIC, RENAL #### [facility] [address] [place] [address] Dr. Nacho Jeffery EGFR-AF NIGERIAN 40 mL/min/1.73m2 Critically low >=60 [facility] Comment on above: Performed By: #### M G, URIC, RENAL #### [facility] [address] [place] [address] Dr. Nacho Jeffery EGFR-NON AF NIGERIAN 33 mL/min/1.73m2 Critically low >=60 [facility] Comment on above: Performed By: #### M G, URIC, RENAL #### [facility] [address] [address] [address] Nacho Jeffery Glucose [Mass/Vol] 172 mg/dL Critically high 74-106 [facility] Comment on above: Performed By: #### M G, URIC, RENAL #### [facility] [address] [place] [address] Dr. Nacho Jeffery Phosphate [Mass/Vol] 3.7 mg/dL Normal 2.6-4.7 [facility] Comment on above: Performed By: #### M G, URIC, RENAL #### [facility] [address] [place] [address] Dr. Nacho Jeffery Potassium [Moles/Vol] 4.2 mmol/L Normal 3.5-5.1 [facility] Comment on above: Performed By: #### M G, URIC, RENAL #### [facility] [address] [place] [address] Dr. Nacho Jeffery Sodium [Moles/Vol] 143 mmol/L Normal 136-145 [facility] Comment on above: Performed By: #### M G, URIC, RENAL #### [facility] [address] [place] [address] Dr. Nacho Jeffery Urea nitrogen [Mass/Vol] 56.0 mg/dL Critically high 7.0-18 .0 [facility] Comment on above: Performed By: #### M G, URIC, RENAL #### [facility] [address] [place] [address] Dr. Nacho Jeffery UA RANDOM W/MICROSCOPICon BACTERIA NONE SEEN Normal NONE SEEN [facility] Comment on above: Performed By: #### M G, URIC, RENAL #### [facility] [address] [place] [address] Dr. Nacho Jeffery Bilirubin Ql (U) Negative Normal NEGATIVE [facility] Comment on above: Performed By: #### M G, URIC, RENAL #### [facility] [address] [place] [address] Dr. Nacho Jeffery CAST NONE SEEN Normal NONE SEEN [facility] Comment on above: Performed By: #### M G, URIC, RENAL #### [facility] [address] [address] [address] Nacho Jeffery Clarity (U) CLEAR Normal CLEAR [facility] Comment on above: Performed By: #### M G, URIC, RENAL #### [facility] [address] [place] [address] Dr. Nacho Jeffery Color (U) LT. YELLOW Normal YELLOW [facility] Comment on above: Performed By: #### M G, URIC, RENAL #### [facility] [address] [place] [address] Dr. Nacho Jeffery Crystals LM Nom (Urine sed) NONE SEEN Normal NONE SEE N [facility] Comment on above: Performed By: #### M G, URIC, RENAL #### [facility] [address] [place] [address] Dr. Nacho Jeffery Epithelial cells LM Ql (Urine sed) RARE Normal N ONE SEEN /RARE [facility] Comment on above: Performed By: #### M G, URIC, RENAL #### [facility] [address] [place] [address] Dr. Nacho Jeffery Glucose Ql (U) Negative Normal NEGATIVE [facility] Comment on above: Performed By: #### M G, URIC, RENAL #### [facility] [address] [place] [address] Dr. Nacho Jeffery Hemoglobin Ql (U) Negative Normal NEGATIVE [facility] Comment on above: Performed By: #### M G, URIC, RENAL #### [facility] [address] [place] [address] Dr. Nacho Jeffery Ketones Ql (U) Negative Normal NEGATIVE [facility] Comment on above: Performed By: #### M G, URIC, RENAL #### [facility] [address] [place] [address] Dr. Nacho Jeffery LEUKOCYTES TRACE Abnormal NEGATIVE [facility] Comment on above: Performed By: #### M G, URIC, RENAL #### [facility] [address] [place] [address] Dr. Nacho Jeffery MUCOUS NONE SEEN Normal NONE SEEN [facility] Comment on above: Performed By: #### M G, URIC, RENAL #### [facility] [address] [place] [address] Dr. Nacho Jeffery Nitrite Ql (U) Negative Normal NEGATIVE [facility] Comment on above: Performed By: #### M G, URIC, RENAL #### [facility] [address] [place] [address] Dr. Nacho Jeffery pH (U) 5.5 [pH] Normal 5-[address] [facility] Comment on above: Performed By: #### M G, URIC, RENAL #### [facility] [address] [place] [address] Dr. Nacho Jeffery RBC 0-2 Normal 0-2 [facility] Comment on above: Performed By: #### M G, URIC, RENAL #### [facility] [address] [place] [address] Dr. Nacho Jeffery SPEC GRAVITY 1.015 Normal 1.005-<=1.025 [facility] Comment on above: Performed By: #### M G, URIC, RENAL #### [facility] [address] [place] [address] Dr. Nacho Jeffery UA PROTEIN Negative Normal NEGATIVE/ TRACE [facility] Comment on above: Performed By: #### M G, URIC, RENAL #### [facility] [address] [place] [address] Dr. Nacho Jeffery Urobilinogen Qn (U) 0.2 {Zuleyka'U}/dL Normal 0.2 - 1. 0 [facility] Comment on above: Performed By: #### M G, URIC, RENAL #### [facility] [address] [place] [address] Dr. Nacho Jeffery WBC 2-5 Abnormal NONE SEEN [facility] Comment on above: Performed By: #### M G, URIC, RENAL #### [facility] [address] [place] [address] Dr. Nacho Jeffery URIC ACID SERUMon 01-15-2023 Urate [Mass/Vol] 7.0 mg/dL Critically high 2.6-6.0 [facility] Comment on above: Performed By: #### M G, URIC, RENAL #### [facility] [address] [address] [address] Nacho Jeffery URINE T PROTEIN CREAT RATIOo n 01-15-2023 Protein (U) [Mass/Vol] 13.4 mg/dL Critically high <=12.0 [facility] Comment on above: Performed By: #### U RTPCR #### [facility] [address] [place] [address] Dr. Nacho Jeffery UR PROT CREAT RAT 0.24 Normal [facility] Comment on above: Performed By: #### U RTPCR #### [facility] [address] [place] [address] Dr. Nacho Jeffery URINE CREAT 56.90 mg/dL Normal 20.00-300.00 [facility] Comment on above: Performed By: #### U RTPCR #### [facility] [address] [place] [address] Dr. Nacho Jeffery VITAMIN D 25 OHon 01-15-2023 VIT D 25-OH 52.6 ng/mL Normal [facility] Comment on above: Performed By: #### M G, URIC, RENAL #### [facility] [address] [place] [address] Dr. Nacho Jeffery VIT D RANGES SEE BELOW Normal [facility] Comment on above: Result Comment: <20 ng/mL Vit D deficient 20 - <30 ng/mL Vit D insufficient 30 - 100 ng/mL Vit D sufficient >100 ng/mL Potential Toxicity Performed By: #### M G, URIC, RENAL #### [facility] [address] [place] [address] Dr. Nacho Jeffery GLYCOHEMOGLOBIN A1Con 2021 ADA RECOMMENDATION SEE BELOW Normal [facility] Comment on above: Result Comment: ADA RECOMMENDED LIMIT 4.0 - 6.0 ADA THERAPEUTIC TARGET < 7.0 ACTION SUGGESTED > 7.0 Performed By: #### A 1C #### [facility] [address] [place] [address] Dr. Nacho Jeffery Glucose [Mass/Vol] 143 mg/dL Normal [facility] Comment on above: Performed By: #### A 1C #### [facility] [address] [address] [address] Nacho Jeffery HbA1c (Bld) [Mass fraction] 6.6 % Critically high 4.5 -6.2 [facility] Comment on above: Performed By: #### A 1C #### [facility] [address] [address] [address] Nacho Jeffery LIPID PROFILEon 11-09-2022 CHOL-HDL RATIO NORM SEE BELOW Normal [facility] Comment on above: Result Comment: 3.3 - 4.4 LOW RISK 4.4 - 7.1 AVERAGE RISK 7.1 - 11.0 MODERATE RISK >11.0 HIGH RISK Performed By: #### M G, URIC, RENAL #### [facility] [address] [address] [address] Nacho Jeffery Cholesterol [Mass/Vol] 141 mg/dL Normal <=200 [facility] Comment on above: Performed By: #### M G, URIC, RENAL #### [facility] [address] [address] [address] Nacho Jeffery Cholesterol in HDL [Mass/Vol] 59 mg/dL Normal 40-60 [facility] Comment on above: Performed By: #### M G, URIC, RENAL #### [facility] [address] [address] [address] Nacho Jeffery Cholesterol in LDL [Mass/Vol] 46.2 mg/dL Normal [facility] Comment on above: Performed By: #### M G, URIC, RENAL #### [facility] [address] [address] [address] Nacho Jeffery Cholesterol.total/Cholestero l in HDL [Mass ratio] 2.4 {ratio} Normal [facility] Comment on above: Performed By: #### M G, URIC, RENAL #### [facility] [address] [address] [address] Nacho Jeffery HDL NORMAL > or = 60 mg/dl - LO W CARDIOVASCULAR RISK <40 mg/dl - HIGH CARDIOVASCULAR RISK Normal [facility] Comment on above: Performed By: #### M G, URIC, RENAL #### [facility] [address] [address] [address] Nacho Jeffery LDL CALC NORMAL SEE BELOW Normal [facility] Comment on above: Result Comment: <100 mg/dl OPTIMAL 100 - 129 mg/dl NEAR OR ABOVE OPTIMAL 130 - 159 mg/dl BORDERLINE HIGH 160 - 189 mg/dl HIGH >190 mg/dl VERY HIGH Performed By: #### M G, URIC, RENAL #### [facility] [address] [address] [address] Nacho Jeffery Triglyceride [Mass/Vol] 179 mg/dL Critically high <=150 [facility] Comment on above: Performed By: #### M G, URIC, RENAL #### [facility] [address] [address] [address] Nacho Jeffery VLDL CALC 35.8 mg/dL Normal [facility] Comment on above: Performed By: #### M G, URIC, RENAL #### [facility] [address] [place] [address] Dr. Nacho Jeffery PROF 14(COMP METB)on 11-09- 022 Albumin [Mass/Vol] 3.2 g/dL Critically low 3.4-5.0 [facility] Comment on above: Performed By: #### M G, URIC, RENAL #### [facility] [address] [address] [address] Nacho Jeffery Albumin/Globulin [Mass ratio] 0.8 {ratio} Normal [facility] Comment on above: Performed By: #### M G, URIC, RENAL #### [facility] [address] [address] [address] Nacho Jeffery ALP [Catalytic activity/Vol] 109 U/L Normal 46-116 [facility] Comment on above: Performed By: #### M G, URIC, RENAL #### [facility] [address] [address] [address] Nacho Jeffery ALT [Catalytic activity/Vol] 38 U/L Normal 14-59 [facility] Comment on above: Performed By: #### M G, URIC, RENAL #### [facility] [address] [address] [address] Nacho Jeffery Anion gap [Moles/Vol] 13.7 mmol/L Normal [facility] Comment on above: Performed By: #### M G, URIC, RENAL #### [facility] [address] [address] [address] Nacho Jeffery AST [Catalytic activity/Vol] 27 U/L Normal 15-37 [facility] Comment on above: Performed By: #### M G, URIC, RENAL #### [facility] [address] [place] [address] Dr. Nacho Jeffery Bilirubin [Mass/Vol] 0.4 mg/dL Normal 0.2-1.0 [facility] Comment on above: Performed By: #### M G, URIC, RENAL #### [facility] [address] [place] [address] Dr. Nacho Jeffery Calcium [Mass/Vol] 9.2 mg/dL Normal 8.5-10.1 [facility] Comment on above: Performed By: #### M G, URIC, RENAL #### [facility] [address] [place] [address] Dr. Nacho Jeffery Chloride [Moles/Vol] 105 mmol/L Normal 98-107 [facility] Comment on above: Performed By: #### M G, URIC, RENAL #### [facility] [address] [address] [address] Nacho Jeffery CO2 [Moles/Vol] 29.5 mmol/L Normal 21.0-32.0 [facility] Comment on above: Performed By: #### M G, URIC, RENAL #### [facility] [address] [address] [address] Nacho Jeffery Creatinine [Mass/Vol] 1.62 mg/dL Critically high 0.55-1.02 [facility] Comment on above: Performed By: #### M G, URIC, RENAL #### [facility] [address] [address] [address] Nacho Jeffery EGFR-AF NIGERIAN 37 mL/min/1.73m2 Critically low >=60 [facility] Comment on above: Performed By: #### M G, URIC, RENAL #### [facility] [address] [place] [address] Dr. Nacho Jeffery EGFR-NON AF NIGERIAN 31 mL/min/1.73m2 Critically low >=60 [facility] Comment on above: Performed By: #### M G, URIC, RENAL #### [facility] [address] [place] [address] Dr. Nacho Jeffery Globulin (S) [Mass/Vol] 3.8 g/dL Normal [facility] Comment on above: Performed By: #### M Jamarcus, URIC, RENAL #### [facility] [address] [place] [address] Dr. Nacho Jeffery Glucose [Mass/Vol] 102 mg/dL Normal 74-106 [facility] Comment on above: Performed By: #### M Jamarcus, URIC, RENAL #### [facility] [address] [place] [address] Dr. Nacho Jeffery Potassium [Moles/Vol] 4.2 mmol/L Normal 3.5-5.1 [facility] Comment on above: Performed By: #### M Jamarcus, URIC, RENAL #### [facility] [address] [place] [address] Dr. Nacho Jeffery Protein [Mass/Vol] 7.0 g/dL Normal 6.4-8.2 [facility] Comment on above: Performed By: #### M G, URIC, RENAL #### [facility] [address] [place] [address] Dr. Nacho Jeffery Sodium [Moles/Vol] 144 mmol/L Normal 136-145 [facility] Comment on above: Performed By: #### M G, URIC, RENAL #### [facility] [address] [place] [address] Dr. Nacho Jeffery Urea nitrogen [Mass/Vol] 45.0 mg/dL Critically high 7.0-18 .0 [facility] Comment on above: Performed By: #### M G, URIC, RENAL #### [facility] [address] [address] [address] Nacho Jeffery Urea nitrogen/Creatinine [Mass ratio] 27.8 mg/mg Normal [facility] Comment on above: Performed By: #### M G, URIC, RENAL #### [facility] [address] [address] [address] Nacho Jeffery OSMOLALITY URINEon Osmolality, Urine 466 mOsmol/kg Normal [facility] Comment on above: Result Comment: 24 h r : 300 - 900 Random: 50 - 1400 After 12hr fluid restriction: >850 Performed By: #### M G, URIC, RENAL #### [facility] [address] [address] [address] Nacho Jeffery PTH INTACTon 07-13-2022 PTH, Intact 84 pg/mL Critically high 15-65 [facility] Comment on above: Performed By: #### P THINT #### [facility] [address] [address] [address] Nacho Jeffery VIT D 25-OH LABCORPon 2021 Vitamin D, 25-Hydroxy 34.7 ng/mL Normal 30.0-100.0 [facility] Comment on above: Result Comment: Radha min D deficiency has been defined by the [place] [employer] and an Endocrine Society practice guideline as a level of serum 25-OH vitamin D less than 20 ng/mL (1,2). The Endocrine Society went on to further define vitamin D insufficiency as a level between 21 and 29 ng/mL (2). 1. IOM ([place] [employer]). 2010. Dietary reference intakes for calcium and D. [place]: The National Academies Press. 2. Magdiel MF, Kb NC, Evens PEPPER, et al. Evaluation, treatment, and prevention of vitamin D deficiency: an Endocrine Society clinical practice guideline. JCEM. 2010; 96(7):1911-30. Performed By: #### M G, URIC, RENAL #### [facility] [address] [address] [address] Nacho Jeffery HEMOGRAM AND PLATELon 2021 Hematocrit (Bld) [Volume fraction] 35.5 % Critically low 36.0-48.0 [facility] Comment on above: Performed By: #### M G, URIC, RENAL #### [facility] [address] [place] [address] Dr. Nacho Jeffery Hemoglobin (Bld) [Mass/Vol] 11.5 g/dL Critically low 12.0 -16.0 [facility] Comment on above: Performed By: #### M G, URIC, RENAL #### [facility] [address] [place] [address] Dr. Nacho Jeffery MCH (RBC) [Entitic mass] 30.6 pg Normal 26.7-34.0 [facility] Comment on above: Performed By: #### M G, URIC, RENAL #### [facility] [address] [place] [address] Dr. Nacho Jeffery MCHC (RBC) [Mass/Vol] 32.4 g/dL Normal 29.9-35.2 [facility] Comment on above: Performed By: #### M G, URIC, RENAL #### [facility] [address] [place] [address] Dr. Nacho Jeffery MCV (RBC) [Entitic vol] 94.4 fL Normal 81.0-99.0 [facility] Comment on above: Performed By: #### M G, URIC, RENAL #### [facility] [address] [place] [address] Dr. Nacho Jeffery PLT 192 103/ul Normal 150-[address] [facility] Comment on above: Performed By: #### M G, URIC, RENAL #### [facility] [address] [place] [address] Dr. Nacho Jeffery RBC 3.76 106/ul Critically low 4.20-5.40 [facility] Comment on above: Performed By: #### M G, URIC, RENAL #### [facility] [address] [place] [address] Dr. Nacho Jeffery WBC 6.1 103/ul Normal 4.0-11.0 [facility] Comment on above: Performed By: #### M G, URIC, RENAL #### [facility] [address] [place] [address] Dr. Nacho Jeffery MAGNESIUMon 07-12-2022 Magnesium [Mass/Vol] 1.3 mg/dL Critically low 1.8-2.4 [facility] Comment on above: Performed By: #### U CHRISTOFER, MG, RENAL #### [facility] [address] [place] [address] Dr. Nacho Jeffery RENAL FUNCTION PANELon 07-12 Albumin [Mass/Vol] 3.3 g/dL Critically low 3.4-5.0 [facility] Comment on above: Performed By: #### U CHRISTOFER, MG, RENAL #### [facility] [address] [place] [address] Dr. Nacho Jeffery Calcium [Mass/Vol] 9.1 mg/dL Normal 8.5-10.1 [facility] Comment on above: Performed By: #### U CHRISTOFER, MG, RENAL #### [facility] [address] [place] [address] Dr. Nacho Jeffery Chloride [Moles/Vol] 104 mmol/L Normal 98-107 [facility] Comment on above: Performed By: #### U CHRISTOFER, MG, RENAL #### [facility] [address] [place] [address] Dr. Nacho Jeffery CO2 [Moles/Vol] 31.7 mmol/L Normal 21.0-32.0 [facility] Comment on above: Performed By: #### U CHRISTOFER, MG, RENAL #### [facility] [address] [place] [address] Dr. Nacho Jeffery Creatinine [Mass/Vol] 1.52 mg/dL Critically high 0.55-1.02 [facility] Comment on above: Performed By: #### U CHRISTOFER, MG, RENAL #### [facility] [address] [place] [address] Dr. Nacho Jeffery EGFR-AF NIGERIAN 40 mL/min/1.73m2 Critically low >=60 [facility] Comment on above: Performed By: #### U CHRISTOFER, MG, RENAL #### [facility] [address] [place] [address] Dr. Nacho Jeffery EGFR-NON AF NIGERIAN 33 mL/min/1.73m2 Critically low >=60 [facility] Comment on above: Performed By: #### U CHRISTOFER, MG, RENAL #### [facility] [address] [place] [address] Dr. Nacho Jeffery Glucose [Mass/Vol] 221 mg/dL Critically high 74-106 [facility] Comment on above: Performed By: #### U CHRISTOFER, MG, RENAL #### [facility] [address] [place] [address] Dr. Nacho Jeffery Phosphate [Mass/Vol] 3.8 mg/dL Normal 2.6-4.7 [facility] Comment on above: Performed By: #### U CHRISTOFER, MG, RENAL #### [facility] [address] [place] [address] Dr. Nacho Jeffery Potassium [Moles/Vol] 4.1 mmol/L Normal 3.5-5.1 [facility] Comment on above: Performed By: #### U CHRISTOFER, MG, RENAL #### [facility] [address] [place] [address] Dr. Nacho Jeffery Sodium [Moles/Vol] 143 mmol/L Normal 136-145 [facility] Comment on above: Performed By: #### U CHRISTOFER, MG, RENAL #### [facility] [address] [place] [address] Dr. Nacho Jeffery Urea nitrogen [Mass/Vol] 45.0 mg/dL Critically high 7.0-18 .0 [facility] Comment on above: Performed By: #### U CHRISTOFER, MG, RENAL #### [facility] [address] [place] [address] Dr. Nacho Jeffery UA RANDOM W/MICROSCOPICon BACTERIA NONE SEEN Normal NONE SEEN [facility] Comment on above: Performed By: #### M G, URIC, RENAL #### [facility] [address] [place] [address] Dr. Nacho Jeffery Bilirubin Ql (U) Negative Normal NEGATIVE [facility] Comment on above: Performed By: #### M G, URIC, RENAL #### [facility] [address] [address] [address] Nacho Jeffery CAST NONE SEEN Normal NONE SEEN [facility] Comment on above: Performed By: #### M G, URIC, RENAL #### [facility] [address] [address] [address] Nacho Jeffery Clarity (U) CLEAR Normal CLEAR [facility] Comment on above: Performed By: #### M G, URIC, RENAL #### [facility] [address] [address] [address] Nacho Jeffery Color (U) LT. YELLOW Normal YELLOW [facility] Comment on above: Performed By: #### M G, URIC, RENAL #### [facility] [address] [place] [address] Dr. Nacho Jeffery Crystals LM Nom (Urine sed) NONE SEEN Normal NONE SEE N [facility] Comment on above: Performed By: #### M G, URIC, RENAL #### [facility] [address] [place] [address] Dr. Nacho Jeffery Epithelial cells LM Ql (Urine sed) FEW Abnormal N ONE SEEN /RARE [facility] Comment on above: Performed By: #### M G, URIC, RENAL #### [facility] [address] [place] [address] Dr. Nacho Jeffery Glucose Ql (U) Negative Normal NEGATIVE [facility] Comment on above: Performed By: #### M G, URIC, RENAL #### [facility] [address] [address] [address] Nacho Jeffery Hemoglobin Ql (U) Negative Normal NEGATIVE [facility] Comment on above: Performed By: #### M G, URIC, RENAL #### [facility] [address] [place] [address] Dr. Nacho Jeffery Ketones Ql (U) Negative Normal NEGATIVE [facility] Comment on above: Performed By: #### M G, URIC, RENAL #### [facility] [address] [place] [address] Dr. Nacho Jeffery LEUKOCYTES TRACE Abnormal NEGATIVE [facility] Comment on above: Performed By: #### M G, URIC, RENAL #### [facility] [address] [place] [address] Dr. Nacho Jeffery MUCOUS NONE SEEN Normal NONE SEEN [facility] Comment on above: Performed By: #### M G, URIC, RENAL #### [facility] [address] [place] [address] Dr. Nacho Jeffery Nitrite Ql (U) Negative Normal NEGATIVE [facility] Comment on above: Performed By: #### M G, URIC, RENAL #### [facility] [address] [address] [address] Nacho Jeffery pH (U) 6.0 [pH] Normal 5-[address] [facility] Comment on above: Performed By: #### M G, URIC, RENAL #### [facility] [address] [place] [address] Dr. Nacho Jeffery RBC NONE SEEN Abnormal 0-[address] [facility] Comment on above: Performed By: #### M G, URIC, RENAL #### [facility] [address] [place] [address] Dr. Nacho Jeffery SPEC GRAVITY 1.015 Normal 1.005-<=1.025 [facility] Comment on above: Performed By: #### M G, URIC, RENAL #### [facility] [address] [place] [address] Dr. Nacho Jeffery UA PROTEIN Negative Normal NEGATIVE/ TRACE [facility] Comment on above: Performed By: #### M G, URIC, RENAL #### [facility] [address] [place] [address] Dr. Nacho Jeffery Urobilinogen Qn (U) 0.2 {Zuleyka'U}/dL Normal 0.2 - 1. 0 [facility] Comment on above: Performed By: #### M G, URIC, RENAL #### [facility] [address] [place] [address] Dr. Nacho Jeffery WBC 2-5 Abnormal NONE SEEN [facility] Comment on above: Performed By: #### M G, URIC, RENAL #### [facility] [address] [place], [place] [address] Dr. Nacho Jeffery URIC ACID SERUMon 07-12-2022 Urate [Mass/Vol] 7.9 mg/dL Critically high 2.6-6.0 [facility] Comment on above: Performed By: #### U CHRISTOFER, MG, RENAL #### [facility] [address] [address] [address] Nacho Jeffery URINE T PROTEIN CREAT RATIOo n 07-12-2022 Protein (U) [Mass/Vol] 17.5 mg/dL Critically high <=12.0 [facility] Comment on above: Performed By: #### M G, URIC, RENAL #### [facility] [address] [address] [address] Nacho Jeffery UR PROT CREAT RAT 0.29 Normal [facility] Comment on above: Performed By: #### M G, URIC, RENAL #### [facility] [address] [address] [address] Nacho Jeffery URINE CREAT 60.37 mg/dL Normal 20.00-300.00 [facility] Comment on above: Performed By: #### M G, URIC, RENAL #### [facility] [id number] Nacho Jeffery ALBUMIN, RANDOM URINE W/CREA TININEon 05-11-2022 ALBUMIN, URINE 0.5 mg/dL Normal See Note: [facility] Comment on above: Result Comment: Refe rence Range: Reference Range Not established Performed By: #### 4 96, 7600, 6517, 52940 #### [facility] [address], [address] [place] [address] Admin Assistant: Mauricio Kern MD ALBUMIN/CREATININE RATIO, RANDOM URINE 7 mcg/mg creat Norm al <30 [facility] Comment on above: Result Comment: The ADA defines abnormalities in albumin excretion as follows: Albuminuria Category Result (mcg/mg creatinine) Normal to Mildly increased <30 Moderately increased 30-299 Severely increased > OR = 300 The ADA recommends that at least two of three specimens collected within a 3-6 month period be abnormal before considering a patient to be within a diagnostic category. Performed By: #### 4 96, 7600, 6517, [id number] #### [facility] [address], [address] [place] [address] Admin Assistant: Mauricio Kern MD Creatinine (U) [Mass/Vol] 74 mg/dL Normal 20-275 [facility] Comment on above: Performed By: #### 4 96, 7600, 6517, 60027 #### [facility] [address], [address] [place] [address] Admin Assistant: Mauricio Kern MD BASIC METABOLIC PANELon 04-14 GLUCOSE Normal [facility] Comment on above: Result Comment: TEST NOT PERFORMED No specimen received. Performed By: #### 4 96, 7600, 6517, [id number] #### [facility] [address], [address] [place] [address] Admin Assistant: Mauricio Kern MD HEMOGLOBIN A1con 05-11-2022 HEMOGLOBIN A1c Normal [facility] Comment on above: Result Comment: TEST NOT PERFORMED No specimen received. Performed By: #### 4 96, 7600, 6517, 50774 #### [facility] [address], [address] [place] [address] Admin Assistant: Mauricio Kern MD LIPID PANEL, STANDARDon 04-14 CHOL/HDLC RATIO Normal [facility] Comment on above: Result Comment: TEST NOT PERFORMED No specimen received. Performed By: #### 4 96, 7600, 6517, 40631 #### [facility] [address], [address] [place] [address] Admin Assistant: Mauricio Kern MD CHOLESTEROL, TOTAL Normal [facility] Comment on above: Result Comment: TEST NOT PERFORMED No specimen received. Performed By: #### 4 96, 7600, 6517, 72146 #### [facility] [address], [address] [place] [address] Admin Assistant: Mauricio Kern MD HDL CHOLESTEROL Normal [facility] Comment on above: Result Comment: TEST NOT PERFORMED No specimen received. Performed By: #### 4 96, 7600, 6517, 91873 #### [facility] [address] [place] [address] Admin Assistant: Mauricio Kern MD LDL-CHOLESTEROL Normal [facility] Comment on above: Result Comment: TEST NOT PERFORMED No specimen received. Performed By: #### 4 96, 7600, 6517, 84614 #### [facility] [place] [address] Admin Assistant: Mauricio Kern MD NON HDL CHOLESTEROL Normal [facility] Comment on above: Result Comment: TEST NOT PERFORMED No specimen received. Performed By: #### 4 96, 7600, 6517, 24180 #### [facility] [place] [address] Admin Assistant: Mauricio Kern MD TRIGLYCERIDES Normal [facility] Comment on above: Result Comment: TEST NOT PERFORMED No specimen received. Performed By: #### 4 96, 7600, 6517, 11108 #### [facility] [place] [address] Admin Assistant: Mauricio Kern MD BASIC METABOLIC PANELon 04-13 Calcium [Mass/Vol] 9.1 mg/dL Normal 8.6-10.4 [facility] Comment on above: Performed By: #### 1 0165, 496, 7600 #### [facility] [place] [address] Admin Assistant: Mauriico Kern MD Chloride [Moles/Vol] 105 mmol/L Normal 98-110 [facility] Comment on above: Performed By: #### 1 0165, 496, 7600 #### [facility] [place] [address] Admin Assistant: Mauricio Kern MD CO2 [Moles/Vol] 25 mmol/L Normal 20-32 [facility] Comment on above: Performed By: #### 1 0165, 496, 7600 #### [facility] [place] [address] Admin Assistant: Mauricio Kern MD Creatinine [Mass/Vol] 1.73 mg/dL High 0.60-0.[address] [facility] Comment on above: Result Comment: For patients >49 years of age, the reference limit for Creatinine is approximately 13% higher for people identified as -Macanese. Performed By: #### 1 016, 49, 7600 #### [facility] [place] [address] Admin Assistant: Mauricio Kern MD eGFR NON-AFR. NIGERIAN 28 mL/min/1.73m2 Low > OR = 60 [facility] Comment on above: Performed By: #### 1 164, 497, 4300 #### [facility] [place] [address] Admin Assistant: Mauricio Kern MD GFR/1.73 sq M.predicted john g blacks MDRD (S/P/Bld) [Vol rate/Area] 32 mL/min/{1.73_m2} Low > OR = 60 [facility] Comment on above: Performed By: #### 1 164, 497, 9160 #### [facility] [place] [address] Admin Assistant: Mauricio Kern MD Glucose [Mass/Vol] 137 mg/dL High 65-99 [facility] Comment on above: Result Comment: Fasting reference interval For someone without known diabetes, a glucose value >125 mg/dL indicates that they may have diabetes and this should be confirmed with a follow-up test. Performed By: #### 1 016, 492, 7600 #### [facility] [place] [address] Admin Assistant: Mauricio Kern MD Potassium [Moles/Vol] 4.6 mmol/L Normal 3.5-5.[address] [facility] Comment on above: Performed By: #### 1 016, 49, 0720 #### [facility] of [address], [address] [place] [address] Admin Assistant: Mauricio Kern MD Sodium [Moles/Vol] 142 mmol/L Normal 135-146 [facility] Comment on above: Performed By: #### 1 0165, 496, 7600 #### [facility] [address], [address] [place] [address] Admin Assistant: Mauricio Kern MD Urea nitrogen [Mass/Vol] 65 mg/dL High 7- [facility] Comment on above: Performed By: #### 1 0165, 496, 7600 #### [facility] [address], [address] [place] [address] Admin Assistant: Mauricio Kern MD Urea nitrogen/Creatinine [Mass ratio] 38 mg/mg High 6- [facility] Comment on above: Performed By: #### 1 0165, 496, 7600 #### [facility] [address], [address] [place] [address] Admin Assistant: Mauricio Kern MD HEMOGLOBIN A1con 05-04-2022 HEMOGLOBIN A1c 7.2 % of total Hgb High <5.7 [facility] Comment on above: Result Comment: For someone without known diabetes, a hemoglobin A1c value of 6.5% or greater indicates that they may have diabetes and this should be confirmed with a follow-up test. For someone with known diabetes, a value <7% indicates that their diabetes is well controlled and a value greater than or equal to 7% indicates suboptimal control. A1c targets should be individualized based on duration of diabetes, age, comorbid conditions, and other considerations. Currently, no consensus exists regarding use of hemoglobin A1c for diagnosis of diabetes for children. Performed By: #### 1 0165, 496, 7600 #### [facility] [address], [address] [place] [address] Admin Assistant: Mauricio Kern MD LIPID PANEL, STANDARDon 06-2 Cholesterol [Mass/Vol] 163 mg/dL Normal <200 [facility] Comment on above: Order Comment: FASTI NG:YES PATIENT UNABLE TO VOID; ADVISED TO RETURN FOR COLLECTION. FASTING: YES Performed By: #### 1 0165, 496, 7600 #### [facility] [address], [address] [place] [address] Admin Assistant: Mauricio Kern MD Cholesterol in HDL [Mass/Vol] 51 mg/dL Normal > OR = 50 [facility] Comment on above: Order Comment: FASTI NG:YES PATIENT UNABLE TO VOID; ADVISED TO RETURN FOR COLLECTION. FASTING: YES Performed By: #### 1 0165, 496, 7600 #### [facility] [address], [address] [address] Admin Assistant: Mauricio Kern MD Cholesterol in LDL [Mass/Vol] 84 mg/dL Normal [facility] Comment on above: Order Comment: FASTI NG:YES PATIENT UNABLE TO VOID; ADVISED TO RETURN FOR COLLECTION. FASTING: YES Result Comment: Refe rence range: <100 Desirable range <100 mg/dL for primary prevention; <70 mg/dL for patients with CHD or diabetic patients with > or = 2 CHD risk factors. LDL-C is now calculated using the Sean-Chika calculation, which is a validated novel method providing better accuracy than the Friedewald equation in the estimation of LDL-C. Sean SS et al. SHRUTHI. 2013;310(19): 4721-5567 (http://education.AVST.SecureWorks/faq/NEQ164) Performed By: #### 1 0165, 496, 7600 #### [facility] [address], [address] [place] [address] Admin Assistant: Mauricio Kern MD Cholesterol.total/Cholestero l in HDL [Mass ratio] 3.2 {ratio} Normal <5.0 [facility] Comment on above: Order Comment: FASTI NG:YES PATIENT UNABLE TO VOID; ADVISED TO RETURN FOR COLLECTION. FASTING: YES Performed By: #### 1 0165, 496, 7600 #### [facility] [address], [address] [place] [address] Admin Assistant: Mauricio Kern MD NON HDL CHOLESTEROL 112 mg/dL (calc) Normal <130 [facility] Comment on above: Order Comment: FASTI NG:YES PATIENT UNABLE TO VOID; ADVISED TO RETURN FOR COLLECTION. FASTING: YES Result Comment: For patients with diabetes plus 1 major ASCVD risk factor, treating to a non-HDL-C goal of <100 mg/dL (LDL-C of <70 mg/dL) is considered a therapeutic option. Performed By: #### 1 0165, 496, 7600 #### [facility] [address], [address] [place] [address] Admin Assistant: Mauricio Kern MD Triglyceride [Mass/Vol] 181 mg/dL High <150 [facility] Comment on above: Order Comment: FASTI NG:YES PATIENT UNABLE TO VOID; ADVISED TO RETURN FOR COLLECTION. FASTING: YES Performed By: #### 1 0165, 496, 7600 #### [facility] [address] [place], [place] [address]e , [address] [address] Admin Assistant: Mauricio Kern MD PTH INTACTon 03-31-2022 PTH, Intact 111 pg/mL Critically high 15-65 [facility] Comment on above: Performed By: #### M G, URIC, RENAL #### [facility] [address] [address] [address] Nacho Jeffery FERRITINon 03-30-2022 Ferritin [Mass/Vol] 479.0 ng/mL Critically high 8.0-252.0 [facility] Comment on above: Performed By: #### M G, URIC, RENAL #### [facility] [address] [address] [address] Nacho Jeffery HEMOGRAM AND PLATELon 2021 Hematocrit (Bld) [Volume fraction] 38.1 % Normal 3 6.0-48.0 [facility] Comment on above: Performed By: #### M G, URIC, RENAL #### [facility] [address] [address] [address] Nacho Jeffery Hemoglobin (Bld) [Mass/Vol] 12.9 g/dL Normal 12.0-16. 0 [facility] Comment on above: Performed By: #### M G, URIC, RENAL #### [facility] [address] [address] [address] Nacho Jeffery MCH (RBC) [Entitic mass] 32.8 pg Normal 26.7-34.0 [facility] Comment on above: Performed By: #### M G, URIC, RENAL #### [facility] [address] [address] [address] Nacho Jeffery MCHC (RBC) [Mass/Vol] 33.9 g/dL Normal 29.9-35.2 [facility] Comment on above: Performed By: #### M G, URIC, RENAL #### [facility] [address] [address] [address] Nacho Jeffery MCV (RBC) [Entitic vol] 96.9 fL Normal 81.0-99.0 [facility] Comment on above: Performed By: #### M G, URIC, RENAL #### [facility] [address] [place] [address] Dr. Nacho Jeffery PLT 191 103/ul Normal 150-450 [facility] Comment on above: Performed By: #### M G, URIC, RENAL #### [facility] [address] [place] [address] Dr. Nacho Jeffery RBC 3.93 106/ul Critically low 4.20-5.40 [facility] Comment on above: Performed By: #### M G, URIC, RENAL #### [facility] [address] [place] [address] Dr. Nacho Jeffery WBC 7.2 103/ul Normal 4.0-11.0 [facility] Comment on above: Performed By: #### M G, URIC, RENAL #### [facility] [address] [place] [address] Dr. Nacho Jeffery IRON AND TIBCon 03-30-2022 % SATURATION 21.6 % Normal [facility] Comment on above: Performed By: #### M G, URIC, RENAL #### [facility] [address] [place] [address] Dr. Nacho Jeffery Iron [Mass/Vol] 63.0 ug/dL Normal 50.0-170.0 [facility] Comment on above: Performed By: #### M G, URIC, RENAL #### [facility] [address] [address] [address] Nacho Jeffery TIBC DIRECT 292.0 ug/dL Normal 250.0-450.0 [facility] Comment on above: Performed By: #### M G, URIC, RENAL #### [facility] [address] [address] [address] Nacho Jeffery MAGNESIUMon 03-30-2022 Magnesium [Mass/Vol] 1.7 mg/dL Critically low 1.8-2.4 [facility] Comment on above: Performed By: #### M G, URIC, RENAL #### [facility] [address] [address] [address] Nacho Jeffery RENAL FUNCTION PANELon 03-30 Albumin [Mass/Vol] 3.4 g/dL Normal 3.4-5.0 [facility] Comment on above: Performed By: #### M G, URIC, RENAL #### [facility] [address] [address] [address] Nacho Jeffery Calcium [Mass/Vol] 9.3 mg/dL Normal 8.5-10.1 [facility] Comment on above: Performed By: #### M G, URIC, RENAL #### [facility] [address] [address] [address] Nacho Jeffery Chloride [Moles/Vol] 102 mmol/L Normal 98-107 [facility] Comment on above: Performed By: #### M G, URIC, RENAL #### [facility] [address] [address] [address] Nacho Jeffery CO2 [Moles/Vol] 31.7 mmol/L Normal 21.0-32.0 [facility] Comment on above: Performed By: #### M G, URIC, RENAL #### [facility] [address] [address] [address] Nacho Jeffery Creatinine [Mass/Vol] 2.05 mg/dL Critically high 0.55-1.02 [facility] Comment on above: Performed By: #### M G, URIC, RENAL #### [facility] [address] [address] [address] Nacho Jeffery EGFR-AF NIGERIAN 28 mL/min/1.73m2 Critically low >=60 [facility] Comment on above: Performed By: #### M G, URIC, RENAL #### [facility] [address] [address] [address] Nacho Jeffery EGFR-NON AF NIGERIAN 23 mL/min/1.73m2 Critically low >=60 [facility] Comment on above: Performed By: #### M G, URIC, RENAL #### [facility] [address] [address] [address] Nacho Jeffery Glucose [Mass/Vol] 194 mg/dL Critically high 74-106 [facility] Comment on above: Performed By: #### M G, URIC, RENAL #### [facility] [address] [address] [address] Nahco Jeffery Phosphate [Mass/Vol] 3.2 mg/dL Normal 2.6-4.7 [facility] Comment on above: Performed By: #### M G, URIC, RENAL #### [facility] [address] [address] [address] Nacho Jeffery Potassium [Moles/Vol] 4.6 mmol/L Normal 3.5-5.1 [facility] Comment on above: Performed By: #### M G, URIC, RENAL #### [facility] [address] [address] [address] Nacho Jeffery Sodium [Moles/Vol] 141 mmol/L Normal 136-145 [facility] Comment on above: Performed By: #### M G, URIC, RENAL #### [facility] [address] [address] [address] Nacho Jeffery Urea nitrogen [Mass/Vol] 64.0 mg/dL Critically high 7.0-18 .0 [facility] Comment on above: Performed By: #### M G, URIC, RENAL #### [facility] [address] [address] [address] Nacho Jeffery UA RANDOM W/MICROSCOPICon BACTERIA NONE SEEN Normal NONE SEEN [facility] Comment on above: Performed By: #### M G, URIC, RENAL #### [facility] [address] [address] [address] Nacho Jeffery Bilirubin Ql (U) Negative Normal NEGATIVE [facility] Comment on above: Performed By: #### M G, URIC, RENAL #### [facility] [address] [address] [address] Nacho Jeffery CAST NONE SEEN Normal NONE SEEN [facility] Comment on above: Performed By: #### M G, URIC, RENAL #### [facility] [address] [address] [address] Nacho Jeffery Clarity (U) CLEAR Normal CLEAR [facility] Comment on above: Performed By: #### M G, URIC, RENAL #### [facility] [address] [place] [address] Dr. Nacho Jeffery Color (U) LT. YELLOW Normal YELLOW [facility] Comment on above: Performed By: #### M G, URIC, RENAL #### [facility] [address] [place] [address] Dr. Nacho Jeffery Crystals LM Nom (Urine sed) NONE SEEN Normal NONE SEE N [facility] Comment on above: Performed By: #### M G, URIC, RENAL #### [facility] [address] [place] [address] Dr. Nacho Jeffery Epithelial cells LM Ql (Urine sed) FEW Abnormal N ONE SEEN /RARE [facility] Comment on above: Performed By: #### M G, URIC, RENAL #### [facility] [address] [address] [address] Nacho Jeffery Glucose Ql (U) Negative Normal NEGATIVE [facility] Comment on above: Performed By: #### M G, URIC, RENAL #### [facility] [address] [place] [address] Dr. Nacho Jeffery Hemoglobin Ql (U) Negative Normal NEGATIVE [facility] Comment on above: Performed By: #### M G, URIC, RENAL #### [facility] [address] [address] [address] Nacho Jeffery Ketones Ql (U) Negative Normal NEGATIVE [facility] Comment on above: Performed By: #### M G, URIC, RENAL #### [facility] [address] [place] [address] Dr. Nacho Jeffery LEUKOCYTES SMALL Abnormal NEGATIVE [facility] Comment on above: Performed By: #### M G, URIC, RENAL #### [facility] [address] [place] [address] Dr. Nacho Jeffery MUCOUS NONE SEEN Normal NONE SEEN [facility] Comment on above: Performed By: #### M G, URIC, RENAL #### [facility] [address] [place] [address] Dr. Nacho Jeffery Nitrite Ql (U) Negative Normal NEGATIVE [facility] Comment on above: Performed By: #### M G, URIC, RENAL #### [facility] [address] [place] [address] Dr. Nacho Jeffery pH (U) 5.5 [pH] Normal 5-[address] [facility] Comment on above: Performed By: #### M G, URIC, RENAL #### [facility] [address] [place] [address] Dr. Nacho Jeffery RBC 0-2 Normal 0-2 [facility] Comment on above: Performed By: #### M G, URIC, RENAL #### [facility] [address] [place] [address] Dr. Nacho Jeffery SPEC GRAVITY 1.015 Normal 1.005-<=1.025 [facility] Comment on above: Performed By: #### M G, URIC, RENAL #### [facility] [address] [place] [address] Dr. Nacho Jeffery UA PROTEIN Negative Normal NEGATIVE/ TRACE [facility] Comment on above: Performed By: #### M G, URIC, RENAL #### [facility] [address] [place] [address] Dr. Nacho Jeffery Urobilinogen Qn (U) 0.2 {Zuleyka'U}/dL Normal 0.2 - 1. 0 [facility] Comment on above: Performed By: #### M G, URIC, RENAL #### [facility] [address] [place] [address] Dr. Nacho Jeffery WBC 5-10 Abnormal NONE SEEN [facility] Comment on above: Performed By: #### M G, URIC, RENAL #### [facility] [address] [place] [address] Dr. Nacho Jeffery URIC ACID SERUMon 03-30-2022 Urate [Mass/Vol] 7.0 mg/dL Critically high 2.6-6.0 [facility] Comment on above: Performed By: #### M G, URIC, RENAL #### [facility] [address] [place] [address] Dr. Nacho Jeffery URINE T PROTEIN CREAT RATIOo n 03-30-2022 Protein (U) [Mass/Vol] 7.1 mg/dL Normal <=12.0 [facility] Comment on above: Performed By: #### U RTPCR #### [facility] [address] [place] [address] Dr. Nacho Jeffery UR PROT CREAT RAT 0.06 Normal [facility] Comment on above: Performed By: #### U RTPCR #### [facility] [address] [place] [address] Dr. Nacho Jeffery URINE CREAT 113.23 mg/dL Normal 20.00-300.00 [facility] Comment on above: Performed By: #### U RTPCR #### [facility] [address] [place] [address] Dr. Nacho Jeffery VITAMIN D 25 OHon 03-30-2022 VIT D 25-OH 57.4 ng/mL Normal [facility] Comment on above: Performed By: #### M G, URIC, RENAL #### [facility] [address] [place] [address] Dr. Nacho Jeffery VIT D RANGES SEE BELOW Normal [facility] Comment on above: Result Comment: <20 ng/mL Vit D deficient 20 - <30 ng/mL Vit D insufficient 30 - 100 ng/mL Vit D sufficient >100 ng/mL Potential Toxicity Performed By: #### M G, URIC, RENAL #### [facility] [address] [address] [address] Nacho Jeffery [facility] 08-30-2021 Albumin [Mass/Vol] 3.7 g/dL Normal 3.6-5.1 [facility] Comment on above: Performed By: #### 1 0231, 7600 #### [facility] of [address], [address] [place] [address] Admin Assistant: Mauricio Kern MD Albumin/Globulin [Mass ratio] 1.4 {ratio} Normal 1.0-2 .5 [facility] Comment on above: Performed By: #### 1 0231, 7600 #### [facility] of [address] [address] Admin Assistant: Mauricio Kern MD ALP [Catalytic activity/Vol] 98 U/L Normal 37-153 [facility] Comment on above: Performed By: #### 1 0231, 7600 #### [facility] of [address] [address] Admin Assistant: Mauricio Kern MD ALT [Catalytic activity/Vol] 23 U/L Normal 6-29 [facility] Comment on above: Performed By: #### 1 0231, 7600 #### [facility] of [address] [address] Admin Assistant: Mauricio Kern MD AST [Catalytic activity/Vol] 22 U/L Normal 10-35 [facility] Comment on above: Performed By: #### 1 0231, 7600 #### [facility] of [address] [place] [address] Admin Assistant: Mauricio Kern MD Bilirubin [Mass/Vol] 0.4 mg/dL Normal 0.2-1.2 [facility] Comment on above: Performed By: #### 1 0231, 7600 #### [facility] of [address] [place] [address] Admin Assistant: Mauricio Kern MD Calcium [Mass/Vol] 9.2 mg/dL Normal 8.6-10.4 [facility] Comment on above: Performed By: #### 1 230, 7600 #### [facility] [address] [place] [address] Admin Assistant: Mauricio Kern MD Chloride [Moles/Vol] 103 mmol/L Normal 98-110 [facility] Comment on above: Performed By: #### 1 230, 7600 #### [facility] [address] [place] [address] Admin Assistant: Mauricio Kern MD CO2 [Moles/Vol] 28 mmol/L Normal 20-32 [facility] Comment on above: Performed By: #### 1 230, 7600 #### [facility] [address] [place] [address] Admin Assistant: Mauricio Kern MD Creatinine [Mass/Vol] 2.22 mg/dL High 0.60-0.[address] [facility] Comment on above: Result Comment: For patients >49 years of age, the reference limit for Creatinine is approximately 13% higher for people identified as -Macanese. Performed By: #### 1 230, 7600 #### [facility] [address] [place] [address] Admin Assistant: Mauricio Kern MD eGFR NON-AFR. NIGERIAN 21 mL/min/1.73m2 Low > OR = 60 [facility] Comment on above: Performed By: #### 1 230, 7600 #### [facility] [place] [address] Admin Assistant: Mauricio Kern MD GFR/1.73 sq M.predicted john g blacks MDRD (S/P/Bld) [Vol rate/Area] 24 mL/min/{1.73_m2} Low > OR = 60 [facility] Comment on above: Performed By: #### 1 230, 0 #### [facility] [address] [place] [address] Admin Assistant: Mauricio Kern MD Globulin (S) [Mass/Vol] 2.7 g/dL Normal 1.9-3.7 [facility] Comment on above: Performed By: #### 1 0231, 7600 #### [facility] [address], [address] [place] [address] Admin Assistant: Mauricio Kern MD Glucose [Mass/Vol] 107 mg/dL High 65-99 [facility] Comment on above: Result Comment: Fasting reference interval For someone without known diabetes, a glucose value between 100 and 125 mg/dL is consistent with prediabetes and should be confirmed with a follow-up test. Performed By: #### 1 0231, 7600 #### [facility] [address], [address] [place] [address] Admin Assistant: Mauricio Kern MD Potassium [Moles/Vol] 4.7 mmol/L Normal 3.5-5.[address] [facility] Comment on above: Performed By: #### 1 023, 7600 #### [facility] [address], [address] [place] [address] Admin Assistant: Mauricio Kern MD Protein [Mass/Vol] 6.4 g/dL Normal 6.1-8.1 [facility] Comment on above: Performed By: #### 1 0231, 7600 #### [facility] [place] [address] Admin Assistant: Mauricio Kern MD Sodium [Moles/Vol] 141 mmol/L Normal 135-146 [facility] Comment on above: Performed By: #### 1 0231, 7600 #### [facility] [place] [address] Admin Assistant: Mauricio Kern MD Urea nitrogen [Mass/Vol] 69 mg/dL High 7-25 [facility] Comment on above: Performed By: #### 1 0231, 7600 #### [facility] [address], [address] [place] [address] Admin Assistant: Mauricio Kern MD Urea nitrogen/Creatinine [Mass ratio] 31 mg/mg High 05-03 [facility] Comment on above: Performed By: #### 1 0231, 7600 #### [facility] [address], [address] [place] [address] Admin Assistant: Mauricio eKrn MD LIPID PANEL, [address] Cholesterol [Mass/Vol] 142 mg/dL Normal <200 [facility] Comment on above: Order Comment: FASTI NG:YES FASTING: YES Performed By: #### 1 0231, 7600 #### [facility] [address], [address] [place] [address] Admin Assistant: Mauricio Kern MD Cholesterol in HDL [Mass/Vol] 47 mg/dL Low > OR = 50 [facility] Comment on above: Order Comment: FASTI NG:YES FASTING: YES Performed By: #### 1 023, 7600 #### [facility] [address], [address] [place] [address] Admin Assistant: Mauricio Kern MD Cholesterol in LDL [Mass/Vol] 69 mg/dL Normal [facility] Comment on above: Order Comment: FASTI NG:YES FASTING: YES Result Comment: Refe rence range: <100 Desirable range <100 mg/dL for primary prevention; <70 mg/dL for patients with CHD or diabetic patients with > or = 2 CHD risk factors. LDL-C is now calculated using the Sean-Chika calculation, which is a validated novel method providing better accuracy than the Friedewald equation in the estimation of LDL-C. Sean BREAUX et al. SHRUTHI. 2013;310(19): 4489-8054 (http://education.AVST.SecureWorks/faq/LSP067) Performed By: #### 1 023, 7600 #### [facility] [address], [address] [place] [address] Admin Assistant: Mauricio Kern MD Cholesterol.total/Cholestero l in HDL [Mass ratio] 3.0 {ratio} Normal <5.0 [facility] Comment on above: Order Comment: FASTI NG:YES FASTING: YES Performed By: #### 1 023, 7600 #### [facility] [address], [address] [place] [address] Admin Assistant: Mauricio Kern MD NON HDL CHOLESTEROL 95 mg/dL (calc) Normal <130 [facility] Comment on above: Order Comment: FASTI NG:YES FASTING: YES Result Comment: For patients with diabetes plus 1 major ASCVD risk factor, treating to a non-HDL-C goal of <100 mg/dL (LDL-C of <70 mg/dL) is considered a therapeutic option. Performed By: #### 1 0231, 7600 #### [facility] [address], [address] [place] [address] Admin Assistant: Mauricio Kern MD Triglyceride [Mass/Vol] 188 mg/dL High <150 [facility] Comment on above: Order Comment: FASTI NG:YES FASTING: YES Performed By: #### 1 023, 0 #### [facility] [address], [address] [place] [address] Admin Assistant: Mauricio Kern MD BASIC METABOLIC PANELon 05- Calcium [Mass/Vol] 10.0 mg/dL Normal 8.6-10.3 [facility] Comment on above: Performed By: #### 0 0071 #### [facility] [address] [place] [address], [place] Chloride [Moles/Vol] 101 mmol/L Normal 98-107 [facility] Comment on above: Performed By: #### 0 0071 #### [facility] [address] [place] [address], [place] CO2 [Moles/Vol] 28 mmol/L Normal 21-31 [facility] Comment on above: Performed By: #### 0 0071 #### [facility] [address] [place] [address], [place] Creatinine [Mass/Vol] 1.96 mg/dL High 0.60-1.20 [facility] Comment on above: Performed By: #### 0 0071 #### [facility] [address] [place] [address], [facility] eGFR- 30 ml/min/1.73sq m Abnormal >60 [facility] Comment on above: Result Comment: Calc ulation may not be valid for patients over 70 years Performed By: #### 0 0071 #### [facility] [address] [place] [address], [facility] eGFR- non- 24 ml/min/1.73sq m Abnormal > 60 [facility] Comment on above: Result Comment: Calc ulation may not be valid for patients over 70 years Performed By: #### 0 0071 #### [facility] [address] [place] [address], [place] Glucose [Mass/Vol] 171 mg/dL High 70-100 [facility] Comment on above: Performed By: #### 0 0071 #### [facility] [address] [place] [address], [place] Potassium [Moles/Vol] 3.9 mmol/L Normal 3.5-5.1 [facility] Comment on above: Performed By: #### 0 0071 #### [facility] [address] [place] [address], [place] Sodium [Moles/Vol] 139 mmol/L Normal 136-145 [facility] [facility] Comment on above: Performed By: #### 0 [id number] #### [facility] [address] [place] [address], [place] Urea nitrogen [Mass/Vol] 66 mg/dL High 7-25 [facility] Comment on above: Performed By: #### [id number] #### [facility] [address] [place] [address], [place] Cardiovascular Lab Reporton 03-30-2021 Cardiovascular Lab Report [facility] Patient Name: Adore Wolff [facility] MR #: [id number] Physician: Moe Parham, Department of M.D. Medicine Service Date: 03/30/2021 Division of Birthdate: 1940 Cardiology Room #: CC Adult Cardiovascular Services [facility] [address] [facility]. [place] [id number] Cardiovascular Laboratory Report FINAL IMPRESSIONS: 1. Moderate 2-vessel coronary artery disease. 2. Normal global left ventricular systolic function by non-invasive imaging. 3. Severe systemic hypertension. RECOMMENDATIONS: 1. Consider alternate etiologies for the patient's shortness of breath including diastolic dysfunction, pulmonary and/or obesity related. 2. Aggressive cardiovascular risk factor modification. 3. Optimization of medical management; aspirin, high intensity statin therapy, we will switch metoprolol to Coreg 25 mg p.o. b.i.d., and continue angiotensin-converting enzyme inhibitor/receptor vince. 4. Follow up with [facility] Cardiology in the next 2 to 3 months. 5. Follow up with Dr. Hackett as scheduled. PROCEDURES: Bilateral selective coronary angiography via left radial approach. METHODS: After risks, benefits, and alternatives were explained, written informed consent was obtained. The patient was prepped and draped in usual sterile fashion over the left wrist. Using 1% lidocaine solution, local infiltration anesthesia was achieved. Using modified Seldinger technique and a micropuncture kit, access of the left radial artery was obtained. A 6-Swedish glide sheath was inserted without difficulty. Bilateral selective coronary angiography was performed using JL4 and a 4-Swedish 3DRC catheter. After reviewing the images and data it was elected to conclude the procedure. All catheters were removed. The radial sheath was removed with application of a TR band per protocol to achieve optimal hemostasis. Overall, the patient tolerated the procedure well. There were no overt complications. She was to be transferred to the holding area in stable condition. FINDINGS: Hemodynamics. AO 168/80. LEFT VENTRICULOGRAPHY: This was not performed. Ejection fraction is normal by noninvasive imaging. CORONARY ARTERIES: Left main coronary artery: This arises from the left coronary cusp. It is a short vessel that bifurcates into the left anterior descending, the left circumflex coronary arteries and is free of significant stenosis. Left anterior descending coronary artery: This shows mild luminal irregularities throughout. Left circumflex coronary artery: This shows luminal irregularities proximally. There is a 30% to 40% stenosis in the midportion of the vessel just distal to the bifurcation with a moderate-sized 3rd obtuse marginal. Right coronary artery: This is a dominant vessel giving rise to the posterior descending and posterolateral branches. It shows a proximal 40% stenosis, mild ectasia in the midportion of the vessel and caliber reduction distally. INDICATIONS: Exertional shortness of breath, abnormal stress test. Electronically Signed by: Moe Parham M.D. 03/31/2021 09:45 A Moe Parham M.D. Date Dict: 03/30/2021/02:41 P/Moe Parham M.D. Date Trans: 03/30/2021 03:19 P/molly [id number] cc: Fernie Hackett M.D. [facility] [address] [place] [address] Normal [facility] Vital Signs Date Time Vital Sign Value Performing Clinician Facility 08-23-2023 12:20-0400 Body height 165.1 cm Gia Tammy Other [facility] Other 08-23-2023 12:20-0400 Body mass index (BMI) [Ratio] 44.09 kg/m2 Gia Tammy Other [facility] Other 08-23-2023 12:20-0400 Body temperature 96.6 [degF] Gia Tammy Other [facility] Other 08-23-2023 12:20-0400 Body weight 120.2 kg Gia Tammy Other [facility] Other 08-23-2023 12:20-0400 Diastolic blood pressure 86 mm[Hg] Gia Tammy Other [facility] Other 08-23-2023 12:20-0400 Respiratory rate 18 /min Gia Tammy Other [facility] Other 08-23-2023 12:20-0400 SaO2% (BldA) [Mass fraction] 96 % Gia Tammy Other [facility] Other 08-23-2023 12:20-0400 Systolic blood pressure 138 mm[Hg] Gia Tammy Other [facility] Other 01-25-2023 12:20-0400 Body height 165.1 cm Gia Tammy Other [facility] Other 01-25-2023 12:20-0400 Body mass index (BMI) [Ratio] 45.76 kg/m2 Gia Tammy Other [facility] Other 01-25-2023 12:20-0400 Body temperature 96.7 [degF] Gia Tammy Other [facility] Other 01-25-2023 12:20-0400 Body weight 124.74 kg Gia Tammy Other [facility] Other 01-25-2023 12:20-0400 Diastolic blood pressure 80 mm[Hg] Gia Tammy Other [facility] Other 01-25-2023 12:20-0400 Respiratory rate 18 /min Gia Tammy Other [facility] Other 01-25-2023 12:20-0400 SaO2% (BldA) [Mass fraction] 96 % Gia Tammy Other [facility] Other 01-25-2023 12:20-0400 Systolic blood pressure 139 mm[Hg] Gia Tammy Other [facility] Other 07-20-2022 13:00-0400 Body height 165.1 cm Gia Tammy Other [facility] Other 07-20-2022 13:00-0400 Body temperature 96 [degF] Gia Tammy Other [facility] Other 07-20-2022 13:00-0400 Diastolic blood pressure 71 mm[Hg] Gia Tammy Other [facility] Other 07-20-2022 13:00-0400 Respiratory rate 18 /min Gia Tammy Other [facility] Other 07-20-2022 13:00-0400 SaO2% (BldA) [Mass fraction] 96 % Gia Tammy Other [facility] Other 07-20-2022 13:00-0400 Systolic blood pressure 134 mm[Hg] Gia Tammy Other [facility] Other 04-06-2022 12:00-0400 Body height 165.1 cm Gia Tammy Other [facility] Other 04-06-2022 12:00-0400 Body mass index (BMI) [Ratio] 46.32 kg/m2 Gia Tammy Other [facility] Other 04-06-2022 12:00-0400 Body temperature 98 [degF] Gia Tammy Other [facility] Other 04-06-2022 12:00-0400 Body weight 126.28 kg Gia Tammy Other [facility] Other 04-06-2022 12:00-0400 Diastolic blood pressure 70 mm[Hg] Gia Tammy Other [facility] Other 04-06-2022 12:00-0400 Respiratory rate 20 /min Gia Tammy Other [facility] Other 04-06-2022 12:00-0400 SaO2% (BldA) [Mass fraction] 93 % Gia Tammy Other [facility] Other 04-06-2022 12:00-0400 Systolic blood pressure 122 mm[Hg] Gia Tammy Other [facility] Other 12-27-2021 16:20-0500 Body height 165.1 cm Gia Tammy Other [facility] Other 12-27-2021 16:20-0500 Body mass index (BMI) [Ratio] 46.29 kg/m2 Gia Tammy Other [facility] Other 12-27-2021 16:20-0500 Body temperature 96.2 [degF] Gia Tammy Other [facility] Other 12-27-2021 16:20-0500 Body weight 126.19 kg Gia Tammy Other [facility] Other 12-27-2021 16:20-0500 Diastolic blood pressure 78 mm[Hg] Gia Tammy Other [facility] Other 12-27-2021 16:20-0500 Respiratory rate 20 /min Gia Tammy Other [facility] Other 12-27-2021 16:20-0500 SaO2% (BldA) [Mass fraction] 95 % Gia Tammy Other [facility] Other 12-27-2021 16:20-0500 Systolic blood pressure 161 mm[Hg] Gia Tammy Other [facility] Other Encounters Encounter Date Encounter Type Care Provider Facility Start: 10-15-2023 End: 10-16-2023 ambulatory Christian Curtis MD [facility] Start: 08-23-2023 End: 08-23-2023 ambulatory Gia Tammy Other [facility] Other Start: 08-23-2023 Office outpatient visit 25 minutes Gia Tammy [facility] [place] Start: 04-26-[address] FERNIE HACKETT Fac ility:[facility] Start: 01-25-2023 End: 01-26-[address] LUISA STERN . [facility] Other Start: 01-25-2023 Office outpatient visit 25 minutes Gia Tammy [facility] [place] Start: 01-15-2023 End: 01-16-2023 ambulatory GIA TAMMY Facility: Start: 11-09-2022 End: 11-10-[address] FERNIE HACKETT Facility:[facility] Start: 10-26-2022 End: 10-27-[address] LUISA STERN . Facility:[facility] Start: 08-02-2022 End: 08-03-[address] LUISA STERN . Facility:[facility] Start: 07-20-2022 End: 07-20-2022 ambulatory Gia Tammy Other [facility] Other Start: 07-20-2022 Office outpatient visit 25 minutes Gia Tammy [facility] Start: 07-12-2022 End: 07-13-2022 ambulatory GIA TAMMY Facility:[facility] Start: 05-03-2022 End: 05-03-2022 ambulatory Gia Tammy Other [facility] Other Start: 05-03-2022 Telephone encounter Gia Tammy [facility] Start: 04-25-2022 End: 04-26-[address] LUISA STERN . Facility:[facility] Start: 04-06-2022 End: 04-06-2022 ambulatory Gia Tammy Other [facility] Other Start: 04-06-2022 Office outpatient visit 25 minutes Gia Tammy [facility] [place] Start: 03-30-2022 End: 03-31-2022 ambulatory GIA TAMMY Facility:[facility] Start: 03-30-2022 End: 03-31-[address] LUISA STERN . Facility:[facility] Start: 12-27-2021 End: 12-27-2021 ambulatory Gia Tammy Other [facility] Other Start: 12-27-2021 Office outpatient visit 15 minutes Gia Tammy [facility] Start: 11-28-2021 End: 11-28-2021 ambulatory Gia Tammy Other [facility] Other Start: 11-28-2021 Telephone encounter Gia Tammy [facility] Start: 11-24-2021 End: 11-24-2021 ambulatory Gia Conley Other [facility] Other Start: 11-24-2021 Telephone encounter Gia Conley [facility] Start: 03-30-2021 End: 03-31-2021 ambulatory [facility] Facility:[facility] Payers Date Payer Category Payer Medicare 2022 Unknown 1959 Medicare [id number] 1957 Unknown [id number] 1940 Unknown [id number] 2.16.8 [id number] 1940 Unknown [id number] 2.16.84 [id number] 1940 Unknown [id number] 2.16.84 [id number] 1940 Unknown [id number] 2.16.84 [id number] 1940 Unknown [id number] 2.16.84 0.1.271677.3.579.2.593 1940 Unknown [id number] 2.16.84 0.1.625974.3.579.2.593 1940 Unknown [id number] 2.16.84 0.1.686273.3.579.2.593 1940 Unknown [id number] 2.16.84 0.1.275575.3.579.2.593 1940 Unknown [id number] 2.16.84 0.1.172562.3.579.2.593 1940 Unknown [id number] 2.16.84 0.1.115068.3.579.2.593 1942 Unknown [id number] 2.16.84 0.1.122530.3.579.2.593 1942 Unknown [id number] 2.16.84 0.1.762879.3.579.2.593 1940 Unknown [id number] 2.16. [id number] Social History Date Type Detail Facility Unknown if ever smoked [facility] Other Sex Assigned At Sex Assigned At Bir th [facility] Other Clinical Notes 12-27-2021 to 08-23-2023 Note Date & Type Note Facility 08-23-2023 Evaluation note Encounter Date Diagnosis Assessment Notes Aug, Hypertensive chronic kidney disease with stage 1 through stage 4 chronic kidney disease, or unspecified chronic kidney disease (ICD-10 - I12.9) Blood pressure is controlled on current regimen. She has edema due to the chronic lymphedema.. Continue Lasix 80 mg BID. I have advised her to monitor blood pressure at home and call office if stays above 140/90 mmHg. Aug, Chronic kidney disease, stage 3b (ICD-10 - N18.32) She has CKD due to the longstanding DM and HTN. Her Serum Creatinine is 2.5 mg/dl above her baseline 1.5- 1.9 mg/dl. Her renal function has declined either due to the progression of her CKD or hemodynamic changes. Her renal US showed b/l nephrolithiasis and Cortical scarring. I have d/w her the importance of good DM and HTN control to slow down the progression of her CKD. Aug, Type 2 diabetes mellitus with diabetic chronic kidney disease (ICD-10 - E11.22) She has uncontrolled DM. I have advised her to continue to work with PCP for DM management. She has minimal proteinuria. I will continue the current dose of Ramipril. I have advised her to stop Jardiance as her EGFR has dropped <25 ml/min and contact the PCP to adjust her diabetic medications. Aug, Secondary hyperparathyroidism (ICD-10 - N25.81) She has secondary hyperparathyroidism but her Calcium, Vit D and Phos are within the goal. Aug, Anemia of renal disease (ICD-10 - D63.1) Hemoglobin within the goal but has adequate iron stores. She didnot tolerate oral Iron . Aug, Hyperuricemia (ICD-10 - E79.0) She has hyperuricemia but denies any recent gout flare. She takes allopurinol. Aug, Hypomagnesemia (ICD-10 - E83.42) She has hypomagnesemia due to the diuretic induced renal magnesium wasting and PPI induced GI losses. She did not tolerate oral magnesium due to the diarrhea. Advised to take high magnesium diet and provide information about it. [facility] Other 03-16-2023 NoteCONSULTATION CONSULTATION DATE: 01/25/2023 HISTORY: This is a very pleasant, 82-year-old female who is accompanied by her to the clinic for chronic lower back pain and radicular pain. Today, she complains of pain as 4/10, describes it as stabbing. At this time, she declines any further procedures. She prefers just supportive treatment and medication maintenance. She did have a lumbar epidural steroid injection last March of 2022 with moderate results, but due to the pain of the procedure, she would not like to pursue further. Medications include tramadol ER 100 mg daily, baclofen 10 mg daily and Lyrica 75 mg daily. The patient does complain of night time leg cramps, most likely from spinal canal stenosis. She does walk with assistance of a wheeled walker. Activities that aggravate her pain are twisting, pushing, pulling, standing, walking and lifting. Patient's REVIEW OF SYSTEMS / PAST MEDICAL HISTORY / ALLERGIES and IMAGES have been reviewed and noted on the chart. PHYSICAL EXAM: VITAL SIGNS: Blood pressure is 167/72. Heart rate is 98. Temperature is 97.8. She is 5'3 , weighs 127 kg. GENERAL IMPRESSION: Pleasant, appropriate, in no acute distress. at bedside. FOCUSED EXAM - BACK: Range of motion is guarded in lateral rotation and flexion/extension. Paravertebral muscles are taut throughout. Spinal axial pain reproduced throughout multiple levels of the thoracic and the lumbar spine. Radiating pain does extend below the knee to the dorsum of the foot. MUSCULOSKELETAL: Diffuse muscle atrophy noted bilateral lower extremities. Motor is 3/5. Patient walks with a slow, antalgic gait with assistance of her wheeled walker. No foot drop or drag noted. NEUROLOGICAL: Patchy hypoesthesia noted along the L3, L4, L5 distribution to the dorsum of the foot. Blunted bilateral patellar reflexes. DIAGNOSIS: Lumbar spinal canal stenosis, lumbar degenerative disc disease and lumbar radiculitis. PLAN: We will continue to medically manage her with tramadol ER 100 mg daily. I did recommend Mirapex 0.125 mg q.h.s. for her leg cramps, but I encouraged the patient and to talk with Dr. Conley, their wind turbine performance engineer, to confirm that this was acceptable, considering her stage 3 kidney disease. Other than that, we will see her in three months' time at the clinic, unless otherwise indicated. Patient and agree with this plan.[facility] 01-25-2023 Evaluation note* Encounter Date Diagnosis Assessment Notes Treatment Notes Treatment Clinical Notes Jan, Hypertensive chronic kidney disease with stage 1 through stage 4 chronic kidney disease, or unspecified chronic kidney disease (ICD-10 - I12.9) Blood pressure is controlled on current regimen. She has edema due to the chronic lymphedema.. Continue Lasix 80 mg BID. I have advised her to monitor blood pressure at home and call office if stays above 140/90 mmHg. Jan, Chronic kidney disea se, stage 3b (ICD-10 - N18.32) She has CKD due to the longstanding DM and HTN. Her baseline Serum Creatinine is1.5- 1.9 mg/dl. Her renal US showed b/l nephrolithiasis and Cortical scarring. I have d/w her the importance of good DM and HTN control to slow down the progression of her CKD. Jan, Type 2 diabetes mellitus with diabetic chronic kidney disease (ICD-10 - E11.22) She has uncontrolled DM with hemoglobin A1c above the target goal 8.6%. She will be benefit with Farxiga as recommended by the PCP to surround the progression of the CKD and good DM control. I have advised her to continue to work with PCP for DM management. She has minimal proteinuria. I will continue the current dose of Ramipril Jan, Secondary hyperparathyroidism (ICD-10 - N25.81) She has secondary hyperparathyroidism but her Calcium, Vit D and Phos are within the goal. Jan, Anemia of renal dise ase (ICD-10 - D63.1) Hemoglobin within the goal but has adequate iron stores. She didnot tolerate oral Iron . Jan, Hyperuricemia (ICD-1 0 - E79.0) She has hyperuricemia but denies any recent gout flare. She takes allopurinol. Jan, Hypomagnesemia (ICD- 10 - E83.42) She has hypomagnesemia due to the diuretic induced renal magnesium wasting and PPI induced GI losses. She did not tolerate oral magnesium due to the diarrhea. Advised to take high magnesium diet and provide information about it. [facility] Other 12-15-2022 NoteCONSULTATION CONSULTATION DATE: 10/26/2022 HISTORY OF PRESENT ILLNESS: This is a very pleasant, 82-year-old female who presents with her for a three month follow up. Today, she reports 0/10 pain and is overall doing well. At her last appointment on 08/02/2022, we had switched her medications from [place] to tramadol extended release 100 mg per day, which she feels is helping very much. It is lasting for her better than the [place]. She is also on Lyrica 75 mg daily and baclofen 10 mg q.h.s. She does complain of slight numbness to her right foot. Activities such as prolonged standing, lifting, walking, housework and transferring clothes from washer to dryer aggravate her pain. She denies any new pain pattern or new vasomotor weakness. Patient's REVIEW OF SYSTEMS / PAST MEDICAL HISTORY / ALLERGIES and IMAGES have been reviewed and noted in the chart. PHYSICAL EXAM: VITAL SIGNS: Blood pressure is 176/72. Heart rate is 64. Temperature is 96.9. She is 5'5 , weighs 128 kg. GENERAL APPEARANCE: Pleasant, appropriate, no acute distress. FOCUSED EXAM - BACK: Range of motion is functional in lateral rotation and flexion/extension. No reproduction of spinal axial pain upon deep compression of the lumbar facets. Mila's point is non-tender bilaterally. Paravertebral muscles are non-spasmodic. MUSCULOSKELETAL: Motor is 5/5 bilaterally. Patient does use a wheeled walker to ambulate and she has a steady gait. No overt vasomotor weakness noted. NEUROLOGICALLY: Patchy hypoesthesia diffusely noted to the right foot. Patient is cognitively intact with +1 bilateral patellar reflexes. DIAGNOSIS: Lumbar spinal canal stenosis, lumbar radiculitis and lumbar degenerative disc disease. PLAN: Will continue with the tramadol as her primary pain medication today. There will be no changes in dose or frequency. We will maintain Lyrica and baclofen as well. Vitamin importance was discussed and patient is compliant. We will see the patient in three months' time unless otherwise indicated, and patient agrees with this plan.[id number] NoteCONSULTATION CONSULTATION DATE: 08/02/2022 HISTORY OF PRESENT ILLNESS: This is a pleasant, 81-year-old female, accompanied by her , returning to the clinic for a three month follow up for chronic lower back pain. She was last seen on 04/25/[address] Stern which, at that time, her [place] was decreased to 5/325 daily p.r.n., which would be transitioned to tramadol 50 mg daily. Last procedure, patient had a lumbar epidural steroid injection on 03/14/2022 which she reported was a very bad experience. Her pathology did not allow for a fair amount of movement for the medicine to be placed. Two days ago, the patient was seen in Orthopedic Clinic and received a Gel-One injection to the right knee and a steroid injection to her left knee. We will take over future knee injections as needed. The patient still has radicular pain to her right thigh and foot, and diffuse pain across her mid back. Current medications include Lyrica 75 mg daily, baclofen 10 mg q.h.s., Tylenol and tramadol 50 mg q.h.s. Patient denies any new radicular pain or vasomotor changes. Patient does ambulate with a wheeled walker. Patient's REVIEW OF SYSTEMS / PAST MEDICAL HISTORY / ALLERGIES and IMAGES have been reviewed and they are noted on the chart. PHYSICAL EXAM: VITAL SIGNS: Blood pressure 177/74, heart rate is 86. Temperature is 97.7. She is 5'5 , weighs 128.3 kg. GENERAL IMPRESSION: Pleasant, appropriate, no acute distress. at side. FOCUSED EXAM - BACK: Range of motion is limited in lateral rotation and flexion/extension. Diffuse lower lumbar pain and paravertebral pain to compression over the posterior facets and paravertebral muscles. Mila's point mildly tender. Negative FABERs or compression test. MUSCULOSKELETAL: Diffuse muscle atrophy noted bilateral lower extremities, right anterior tibialis and extensor digitorum longus atrophy noted. Patient does walk with a slow, steady gait with a wheeled walker. Slight right foot weakness. NEUROLOGICALLY: Diffuse patchy hypoesthesia to right lower extremity to the level of the ankle. Bilateral patellar and Achilles reflexes are +1. DIAGNOSIS: Chronic lower back pain, lumbar spinal canal stenosis, lumbar radiculitis and lumbar degenerative disc disease. PLAN: Her tramadol will be increased to 100 mg extended release daily. [place] will be discontinued. Education was given regarding use of the menthol heat rub with Voltaren gel and heat application to her back. Vitamin and nutrition importance was discussed. Patient will be seen back in the clinic in three months' time, unless otherwise indicated, and patient agrees to this.[id number] Evaluation note* Encounter Date Diagnosis Assessment Notes Treatment Notes Treatment Clinical Notes Jul, Hypertensive chronic kidney disease with stage 1 through stage 4 chronic kidney disease, or unspecified chronic kidney disease (ICD-10 - I12.9) Blood pressure is controlled on current regimen. She has edema due to the chronic lymphedema.. Continue Lasix 80 mg BID. I have advised her to monitor blood pressure at home and call office if stays above 140/90 mmHg. Jul, Chronic kidney disea se (CKD), stage IV (severe) (ICD-10 - N18.4) She has CKD due to the longstanding DM and HTN. Her baseline Serum Creatinine is1.5- 1.9 mg/dl. Her renal US showed b/l nephrolithiasis and Cortical scarring. I have d/w her the importance of good DM and HTN control to slow down the progression of her CKD. Jul, Type 2 diabetes mellitus with diabetic chronic kidney disease (ICD-10 - E11.22) Her Blood sugars are within the acceptable range. I have advised her to continue to work with PCP for DM management. She has minimal proteinuria. I will continue the current dose of Ramipril Jul, Secondary hyperparathyroidism (ICD-10 - N25.81) She has secondary hyperparathyroidism but her Calcium, Vit D and Phos are within the goal. Jul, Anemia of renal dise ase (ICD-10 - D63.1) Hemoglobin within the goal but has adequate iron stores. She didnot tolerate oral Iron . Jul, Hyperuricemia (ICD-1 0 - E79.0) She has hyperuricemia but denies any recent gout flare. She takes allopurinol. [facility] Other 06-22-2022 Evaluation note* Encounter Date Diagnosis Assessment Notes Treatment Notes Treatment Clinical Notes Apr, Hypertensive chronic kidney disease with stage 1 through stage 4 chronic kidney disease, or unspecified chronic kidney disease (ICD-10 - I12.9) [facility] Other 06-14-2022 NoteCONSULTATION CONSULTATION DATE: 04/25/2022 CHIEF COMPLAINT: Low back pain, bilateral leg pain. HISTORY OF PRESENT ILLNESS: This is a 81-year-old female who has had multiple back surgeries. The patient has significant spinal canal stenosis. The patient reports intermittent radicular pain into her legs and it alternatives, depending on the side. The patient is not a surgical candidate. She states the majority of the time the pain is a 4/10. She is managing the pain with [place] 5/325 one table daily and tramadol 50 mg one tablet daily, depending on her activity level. The patient is very cognizant of this. The patient has a very supportive family and is accompanied by her . Activities such as standing too long, cooking, ADLs, activities aggravate the pain. The patient has gradually decreased her activity level to having decreased function in her legs also. The patient takes Tylenol in the morning, Lyrica q.p.m., along with baclofen 10 daily. The patient's PAST MEDICAL HISTORY / SURGICAL HISTORY / REVIEW OF SYSTEMS are noted on the chart, along with the MEDICATION LIST / ALLERGIES and RADIOLOGICAL IMAGES. PHYSICAL EXAMINATION: GENERAL: This is a pleasant, cooperative female who is accompanied by her . VITAL SIGNS: Stable at 165/72 with a heart rate of 89. At a height of 5'5 , the patient weight 126 kg. FOCUSED EVALUATION: The patient is able to stand up without any overt discomfort. The patient uses a walker for ambulation; however, this has been the case for quite some time. The patient has cervicothoracic kyphosis also, has difficulty maintaining a neutral gaze. The patient is comfortable, is focused with regards to her history. EXTREMITIES: Pedal edema is present in the lower extremities bilaterally. NEUROLOGICALLY: Currently, no radicular symptomatology. The patient does have some pathology, right hand side greater than left hand side, in pain depending on her activity level. PSYCHIATRICALLY: Affect is appropriate. IMPRESSION: Failed back syndrome, lumbar spinal canal stenosis, lumbar radiculitis, right hand side greater than left hand side along the L5 distribution; muscle disuse atrophy, obesity. PLAN: We will maintain the patient's pain medication which would be [place] 5/325 one tablet daily and tramadol 50 mg daily, along with the Lyrica daily. The patient is doing well with this. We have encouraged her to increase her activity level and, should she require increased pain medication, I would be happy to prescribe this as long as she maintains her increased activity level. The patient and her understand and would like to progress. The patient will be following up in the office in three months and earlier should she need us. CC: Fernie Hackett D.O. [facility] Signed and Approved by: DR LUISA STERN . 05/02/2022 08:52:00[facility]05-26-2022 Evaluation note* Encounter Date Diagnosis Assessment Notes Treatment Notes Treatment Clinical Notes March, Hypertensive chronic kidney disease with stage 1 through stage 4 chronic kidney disease, or unspecified chronic kidney disease (ICD-10 - I12.9) Blood pressure is controlled on current regimen. She has edema due to the chronic lymphedema.. Continue Lasix 80 mg BID. I have advised her to monitor blood pressure at home and call office if stays above 140/90 mmHg. March, Chronic kidney disea se (CKD), stage IV (severe) (ICD-10 - N18.4) She has CKD due to the longstanding DM and HTN. Her Serum Creatinine is 2.0 mg/dl close to her baseline Serum Creatinine 1.9 mg/dl. Her renal function is declining due to the progression of CKD. Her renal US showed b/l nephrolithiasis and Cortical scarring. I have d/w her the importance of good DM and HTN control to slow down the progression of her CKD. March, Type 2 diabetes mellitus with diabetic chronic kidney disease (ICD-10 - E11.22) Her Blood sugars are within the acceptable range. I have advised her to continue to work with PCP for DM management. She has minimal proteinuria. I will continue the current dose of Ramipril March, Secondary hyperparathyroidism (ICD-10 - N25.81) She has secondary hyperparathyroidism but her Calcium, Vit D and Phos are within the goal. March, Anemia of renal dise ase (ICD-10 - D63.1) Hemoglobin within the goal but has adequate iron stores. She didnot tolerate oral Iron . March, Hyperuricemia (ICD-1 0 - E79.0) She has hyperuricemia but denies any recent gout flare. She takes allopurinol. [facility] Other 05-19-2022 NoteCONSULTATION CONSULTATION DATE: 03/30/2022 This is a pleasant 81-year-old female who returns to the clinic status post lumbar epidural steroid injection which was completed on 03/14/2022. This particular injection was not helpful to the patient but it increased her pain, starting the day of the procedure. The patient did call the office 2 days after the procedure complaining of continued 12 out of 10 pain. At that time she was taking her Tramadol which, according to the patient, was non-helpful. The patient was unable to lie in bed for numerous days post-injection and she slept in a recliner. She was given a 14-day prescription of [place] 5/325 b.i.d. to help with the acuity of her post-procedure pain. Today she reports the [place] is gone and she is back on the Tramadol which minimally touches her pain. She reports her pain 4 out of 10 today as shooting and sharp at rest. Her most recent MRI was complete on 12/21/2021 which shows marked left foraminal narrowing and mild to moderate central canal narrowing between L2 to L5. The patient continues to have radicular pain. Right side is greater than the left to the level of mid-calf. The patient does use a wheeled walker to ambulate. Activity such as standing, walking, pushing, pulling, ADLs and other physical activity worsen the pain. She does occasionally use heat which is helpful. Medications include Lyrica 75 mg q. day, Baclofen 10 mg q.h.s. and Tramadol 50 mg b.i.d. REVIEW OF SYSTEMS, PAST MEDICAL HISTORY, ALLERGIES AND IMAGES: Have been reviewed and noted in the chart. PHYSICAL EXAM: VITAL SIGNS: Blood pressure 146/68, heart rate is 70, temperature is 97.5. Height is 5'5 , weighs 125.6 kg. GENERAL APPEARANCE: Pleasant, appropriate, mildly uncomfortable in the chair. FOCUSED EXAM: BACK: The patient has generalized point tenderness to her lumbar facets as well as her paravertebral muscles. Mila's point is tender bilaterally. Flakito's is positive. Range of motion is guarded in lateral rotation and flexion-extension. MUSCULOSKELETAL: Motor is intact, 3 out of 5 bilaterally. The patient walks in a slow, steady ambulation with a wheeled walker. NEUROLOGICAL: Right lower extremity radicular pain is present along the L3, L4 and L5 dermatomes. Blunted patellar-Achilles reflex to the right. DIAGNOSIS: Lumbar spinal canal stenosis, lumbar radiculopathy, lumbar degenerative disk. PLAN: Tramadol will be discontinued and rather we will maintain her on [place] 5/325 b.i.d. which proved to be the most helpful to the patient. I am not concerned that she is an at-risk patent with this medication. U-tox will be performed in the office as well. Vitamin and nutrition importance was discussed as well. The patient was asked to return in 4 weeks to follow-up with Dr. Stern. The patient and agree and would like to proceed. [facility] Signed and Approved by: JONNY CAMPUZANO . 04/03/2022 15:07:00[facility]02-15-2022 Evaluation note* Encounter Date Diagnosis Assessment Notes Treatment Notes Treatment Clinical Notes Dec, Hypertensive chronic kidney disease with stage 1 through stage 4 chronic kidney disease, or unspecified chronic kidney disease (ICD-10 - I12.9) Blood pressure is high today but usually well controlled on current regimen. She appears to be euvolemic. Continue Lasix 80 mg BID. I have advised her to monitor blood pressure at home and call office if stays above 140/90 mmHg. Dec, Chronic kidney disea se (CKD), stage IV (severe) (ICD-10 - N18.4) She has CKD due to the longstanding DM and HTN. Her Serum Creatinine is 2.0 mg/dl close to her baseline Serum Creatinine 1.9 mg/dl. Her renal function is declining due to the progression of CKD. Her renal US showed b/l nephrolithiasis and Cortical scarring. I have d/w her the importance of good DM and HTN control to slow down the progression of her CKD. Dec, Type 2 diabetes mellitus with diabetic chronic kidney disease (ICD-10 - E11.22) Her Blood sugars are within the acceptable range. I have advised her to continue to work with PCP for DM management. She has minimal proteinuria. I will continue the current dose of Ramipril Dec, Secondary hyperparathyroidism (ICD-10 - N25.81) She has secondary hyperparathyroidism but her Calcium, Vit D and Phos are within the goal. Dec, Anemia of renal dise ase (ICD-10 - D63.1) Hemoglobin within the goal but has adequate iron stores. She didnot tolerate oral Iron .She will need a GI work-up if has not done recently. I will defer this to PCP . Dec, Hyperuricemia (ICD-1 0 - E79.0) She has hyperuricemia but denies any recent gout flare. She takes allopurinol. [facility] Other Evaluation noteNo InformationNort [facility] [employer] Other History general Narrative - Reported* Type Description Date Medical History hypertension Medical History acid reflux Medical History COPD Medical History diabetes mallitus Medical History Arthritis Medical History hyperlipidemia Medical History NUCLEAR STRESS TEST F/U WITH CAR DIOLOGY Medical History LOW BACK PAIN Surgical History neck Surgical History hysterectomy Surgical History cholecystectomy Surgical History carpal tunnel release bilateral Surgical History back surgery lower Surgical History CATARACT SURGERY BILATERAL Surgical History APPENDECTOMY Surgical History HEART CATH 03/30/2021 Surgical History INJECTIONS IN LOWER BACK Hospitalization History see above [facility] Other History general Narrative - Reported* Type Description Date Medical History hypertension Medical History acid reflux Medical History COPD Medical History diabetes mallitus Medical History Arthritis Medical History hyperlipidemia Medical History NUCLEAR STRESS TEST F/U WITH CAR DIOLOGY Surgical History neck Surgical History hysterectomy Surgical History cholecystectomy Surgical History carpal tunnel release bilateral Surgical History back surgery lower Surgical History CATARACT SURGERY BILATERAL Surgical History APPENDECTOMY Surgical History HEART CATH 03/30/2021 Hospitalization History see above [facility] Other Summary Purpose Family History No Family History Records FoundNo Family History Records FoundNo Family History Records FoundNo Family History Records Found Advance Directives No Advanced Directives Records FoundNo Advanced Directives Records FoundNo Advanced Directives Records FoundNo Advanced Directives Records Found Additional Source Comments INFORMATION SOURCE (unrecogn ized section and content) DATE CREATED AUTHOR 04/06/2021 [facility] DATE CREATED AUTHOR AUTHOR'S ORGANIZ ATION 05/12/2022 [facility] DATE CREATED AUTHOR AUTHOR'S ORGANIZ ATION 03/15/2023 [facility] DATE CREATED AUTHOR AUTHOR'S ORGANIZ ATION 10/26/2023 [facility] REASON FOR VISIT (unrecogniz ed section and content) REFILLCRITICAL LAB RESULTLAB S DRAWNCRITICAL LAB RESULTCKD and AnemiaCKD and HTNCKD and EdemaCKD and HTNCKD and HTN FOR RECORDS PERTAINING TO PATIENTS WHO ARE OR HAVE BEEN ENROLLED IN A CHEMICAL DEPENDENCY/SUBSTANCEABUSE PROGRAM, SOME INFORMATION MAY BE OMITTED. This clinical summary was aggregated from multiple sources. Caution should be exercised in using it in the provision of clinical care. This summary normalizes information from multiple sources, and as a consequence, information in this document may materially change the coding, format and clinical context of patient data. In addition, data may be omitted in some cases. CLINICAL DECISIONS SHOULD BE BASED ON THE PRIMARY CLINICAL RECORDS. [facility]. provides no warranty or guarantee of the accuracy or completeness of information in this document.
[2023-10-31 10:20] LABS: Creatinine Urine Random 53.16 mg/dL (20.00-300.00); Protein Creatinine Ratio Urine 1.83; Total Protein Urine Random 97.5 mg/dL (<=11.9)
[2023-10-31 10:28] LABS: Albumin Level 2.9 g/dL (3.4-5.0); Anion Gap 10.9; Calcium 8.7 mg/dL (8.5-10.1); Carbon Dioxide 29.8 mmol/L (21.0-32.0); Chloride 104 mmol/L (98-107); Estimated GFR (African America 40 (>=60); Estimated GFR (Non-African Ame 33 (>=60); Glucose 194 mg/dL (74-106); Phosphorus 3.3 mg/dL (2.6-4.7); Potassium 3.7 mmol/L (3.5-5.1); Sodium 141 mmol/L (136-145); Uric Acid 4.9 mg/dL (2.6-6.0)
[2023-10-31 10:30] LABS: Percent Iron Saturation 20.7 %
[2023-10-31 10:46] LABS: Hematocrit 35.9 % (36.0-48.0); Hemoglobin 11.2 g/dL (12.0-16.0); Mean Corpuscular HGB Conc 31.2 g/dL (29.9-35.2); Mean Corpuscular Volume 96.2 fL (81.0-99.0); Mean Platelet Volume 11.5 fL (9.5-13.5); Platelet Count 188 10^3/uL (150-450); Red Blood Count 3.73 10^6/uL (4.20-5.40); Red Cell Distribution Width 15.2 % (11.0-15.0); White Blood Count 9.6 10^3/uL (4.0-11.0)
[2023-10-31 11:20] LABS: Bilirubin Urine NEGATIVE (NEGATIVE); Blood Urine TRACE-I (NEGATIVE); Clarity Urine SL CLOUDY (CLEAR); Color Urine LT. YELLOW (YELLOW); Glucose Urine UA NEGATIVE (NEGATIVE); Ketones Urine NEGATIVE (NEGATIVE); Leukocyte Esterase Urine MODERATE (NEGATIVE); Nitrite Urine NEGATIVE (NEGATIVE); Protein Urine 100 mg/dL (NEG/TRACE); Specific Gravity Urine 1.015 (1.005-1.025); Urobilinogen Urine 0.2 EU/dL (0.2-1.0)
[2023-10-31 12:00] LABS: WBC Urine >100 #/HPF (NONE SEEN)
[2023-10-31 12:01] LABS: Bacteria Urine TRACE #/HPF (NONE SEEN); Cast Seen? NONE SEEN #/LPF (NONE SEEN); Crystals Seen? None Seen #/HPF (None Seen); Mucus Urine NONE SEEN (NONE SEEN); Squamous Epithelial Cell Urine FEW #/LPF (NONE/RARE)
[2023-11-01 12:09] LABS: PTH, Intact 58 pg/mL (15-65)
== END 2023-10-31 09:13 | disposition home or self-care (01) ==
LOC: LAB 09:12
PROVIDERS: PCP Family Medicine; Visit Provider Internal Medicine
DX: I12.9 Hypertensive chronic kidney disease with stage 1 through stage 4 chronic kidney disease, or unspecified chronic kidney disease (principal); N18.32 Chronic kidney disease, stage 3b; E11.22 Type 2 diabetes mellitus with diabetic chronic kidney disease; N25.81 Secondary hyperparathyroidism of renal origin; D63.1 Anemia in chronic kidney disease; E79.0 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 inflammatory arthritis and tophaceous disease; E83.42 Hypomagnesemia
CPT/HCPCS: 36415; 80069; 81001; 82306; 82570; 82728; 83540; 83550; 83735; 83970; 84156; 84550; 85027

== ENCOUNTER 2023-11-08 14:50 | Emergency (ER) | payer MEDICARE, SELFPAY ==
--- OUTSIDE RECORDS SUMMARY | 2023-11-08 15:02 | XMS_ITS | CCD ---
Author Name Unknown Address [address] [place] [address] Organization [facility] Care Team Providers Care [employer] Underwriter Name Role Phone ROBERTO PARHAMAB A Attending [...] source) Adhesive Tape Substance Allergy 3 [facility] Povidone-Iodine (1 source) Povidone-Iodine Drug Allergy 3 [facility] Sulfonamides (antibiotic) (1 source) Sulfonamides (Antibiotic) Drug Allergy 3 [facility] Tetracyclines (antibiotic) (1 source) Tetracyclines Drug Allergy 3 [facility] (8 sources) Povidone-Iodine Drug Allergy rash [employer] [facility] Other (9 sources) Sulfonamides (Antibiotic) Propensity to adverse reactions rash [facility] Other (9 sources) Tetracycline Drug Allergy hives [facility] Other (9 sources) Adhesive 1 x6yd Drug allergy rash [facility] Other (9 sources) Amlodipine & Diet Manage Prod Drug allergy rash [facility] Other (2 sources) Povidone-Iodine; Translations: [Betadine] Drug Allergy 3 rash [facility] (1 source) Contrast media Drug allergy (disorder) [facility] (1 source) Desonide Drug Allergy 3 [facility] (1 source) Sulfonamides (Antibiotic) Drug allergy (disorder) 3 [facility] (1 source) Tetracycline Drug Allergy 3 [facility] Medications Current Medications Medication Drug [...] as needed Orally TWICE A DAY Active [id number] 200 actuat albuterol 0.09 mg/actuat metered dose [...] For Her 50 + - Orally Active Tyro 3-6-9 Complex - (9 sources) Tyro 3-6-9 Comp fawad - Orally Active omeprazole [...] Chronic kidney disease Other aftercare (1 source) skilled nursing (current) use of insulin; 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] Onset: 11-11-2022 Episodic Other connective tissue disease (1 source) Muscle wasting and atrophy, not elsewhere classified, unspecified site; Translations: [MUSCLE WASTING ATROPHY NEC UNS SITE] Onset: 04-27-2022 Episodic Unclassified (1 source) LOW BACK PAIN, UNSPECIFIED; Translations: [LOW BACK PAIN, UNSPECIFIED] Onset: 08-02-2022 Results Test Name Value Interpretation Reference Range Facility PTH INTACTon 01-16-2023 PTH, Intact 115 pg/mL Critically high 15-65 [facility] Comment on above: Performed By: #### M G, URIC, RENAL #### [facility] [address] [place] [address] Dr. Nacho Jeffery FERRITINon 01-15-2023 Ferritin [Mass/Vol] 304.0 ng/mL Critically high 8.0-252.0 [facility] Comment on above: Performed By: #### M G URIC, RENAL #### [facility] [address] [place] [address] Dr. Nacho Jeffery HEMOGRAM AND PLATELon 2022 Hematocrit (Bld) [Volume fraction] 36.0 % Normal 36.0-48.0 [facility] Comment on above: Performed By: #### M Jmaarcus URIC, RENAL #### [facility] [address] [place] [address] Dr. Nacho Jeffery Hemoglobin (Bld) [Mass/Vol] 11.6 g/dL Critically low 12.0-16.0 [facility] Comment on above: Performed By: #### M G, URIC, RENAL #### [facility] [address] [place] [address] Dr. Nacho Jeffery MCH (RBC) [Entitic mass] 29.4 pg Normal 26.7-34.0 [facility] Comment on above: Performed By: #### M G, URIC, RENAL #### [facility] [address] [place] [address] Dr. Nacho Jeffery MCHC (RBC) [Mass/Vol] 32.2 g/dL Normal 29.9-35.2 [facility] Comment on above: Performed By: #### M G, URIC, RENAL #### [facility] [address] [address] [address] Nacho Jeffery MCV (RBC) [Entitic vol] 91.4 fL Normal 81.0-99.0 [facility] Comment on above: Performed By: #### M G, URIC, RENAL #### [facility] [address] [address] [address] Nacho Jeffery PLT 202 103/ul Normal 150-450 [facility] Comment on above: Performed By: #### M G, URIC, RENAL #### [facility] [address] [address] [address] Nacho Jeffery RBC 3.94 106/ul Critically low 4.20-5.40 [facility] Comment on above: Performed By: #### M G, URIC, RENAL #### [facility] [address] [place] [address] Dr. Nacho Jeffery WBC 5.9 103/ul Normal 4.0-11.0 [facility] Comment on above: Performed By: #### M G, URIC, RENAL #### [facility] [address] [address] [address] Nacho Jeffery IRON AND TIBCon 01-15-2023 % SATURATION 23.4 % Normal [facility] Comment on above: Performed By: #### M G, URIC, RENAL #### [facility] [address] [address] [address] Nacho Jeffery Iron [Mass/Vol] 62.0 ug/dL Normal 50.0-170.0 [facility] Comment on above: Performed By: #### M G, URIC, RENAL #### [facility] [address] [address] [address] Nacho Jeffery TIBC DIRECT 265.0 ug/dL Normal 250.0-450.0 [facility] Comment on above: Performed By: #### M G, URIC, RENAL #### [facility] [address] [address] [address] Nacho Jeffery MAGNESIUMon 01-15-2023 Magnesium [Mass/Vol] 1.5 mg/dL Critically low 1.8-2.4 [facility] Comment on above: Performed By: #### M G, URIC, RENAL #### [facility] [address] [address] [address] Nacho Jeffery RENAL FUNCTION PANELon 01-15 Albumin [Mass/Vol] 3.4 g/dL Normal 3.4-5.0 [facility] Comment on above: Performed By: #### M G, URIC, RENAL #### [facility] [address] [address] [address] Nacho Jeffery Calcium [Mass/Vol] 9.2 mg/dL Normal 8.5-10.1 [facility] Comment on above: Performed By: #### M G, URIC, RENAL #### [facility] [address] [place] [address] Dr. Nacho Jeffery Chloride [Moles/Vol] 104 mmol/L Normal 98-107 [facility] Comment on above: Performed By: #### M G, URIC, RENAL #### [facility] [address] [place] [address] Dr. Nacho Jeffery CO2 [Moles/Vol] 30.8 mmol/L Normal 21.0-32.0 [facility] Comment on above: Performed By: #### M G, URIC, RENAL #### [facility] [address] [place] [address] Dr. Nacho Jeffery Creatinine [Mass/Vol] 1.52 mg/dL Critically high 0.55-1.02 [facility] Comment on above: Performed By: #### M G, URIC, RENAL #### [facility] [address] [place] [address] Dr. Nacho Jeffery EGFR-AF LITHUANIAN 40 mL/min/1.73m2 Critically low >=60 [facility] Comment on above: Performed By: #### M G, URIC, RENAL #### [facility] [address] [place] [address] Dr. Nacho Jeffery EGFR-NON AF LITHUANIAN 33 mL/min/1.73m2 Critically low >=60 [facility] Comment on above: Performed By: #### M G, URIC, RENAL #### [facility] [address] [address] [address] Nacho Jeffery Glucose [Mass/Vol] 172 mg/dL Critically high 74-106 [facility] Comment on above: Performed By: #### M G, URIC, RENAL #### [facility] [address] [address] [address] Nacho Jeffery Phosphate [Mass/Vol] 3.7 mg/dL Normal 2.6-4.7 [facility] Comment on above: Performed By: #### M G, URIC, RENAL #### [facility] [address] [address] [address] Nacho Jeffery Potassium [Moles/Vol] 4.2 mmol/L Normal 3.5-5.1 [facility] Comment on above: Performed By: #### M G, URIC, RENAL #### [facility] [address] [place] [address] Dr. Nacho Jeffery Sodium [Moles/Vol] 143 mmol/L Normal 136-145 [facility] Comment on above: Performed By: #### M G, URIC, RENAL #### [facility] [address] [address] [address] Nacho Jeffery Urea nitrogen [Mass/Vol] 56.0 mg/dL Critically high 7.0-18.0 [facility] Comment on above: Performed By: #### M G, URIC, RENAL #### [facility] [address] [address] [address] Nacho Jeffery UA RANDOM W/MICROSCOPICon BACTERIA NONE SEEN Normal NONE SEEN [facility] Comment on above: Performed By: #### M G, URIC, RENAL #### [facility] [address] [address] [address] Nacho Jeffery Bilirubin Ql (U) Negative Normal NEGATIVE [facility] Comment on above: Performed By: #### M G, URIC, RENAL #### [facility] [address] [place] [address] Dr. Nacho Jeffery CAST NONE SEEN Normal NONE SEEN [facility] Comment on above: Performed By: #### M G, URIC, RENAL #### [facility] [address] [address] [address] Nacho Jeffery Clarity (U) CLEAR Normal CLEAR [facility] Comment on above: Performed By: #### M G, URIC, RENAL #### [facility] [address] [place] [address] Dr. Nacho Jeffery Color (U) LT. YELLOW Normal YELLOW [facility] Comment on above: Performed By: #### M G, URIC, RENAL #### [facility] [address] [place] [address] Dr. Nacho Jeffery Crystals LM Nom (Urine sed) NONE SEEN Normal NONE SEEN [facility] Comment on above: Performed By: #### M G, URIC, RENAL #### [facility] [address] [place] [address] Dr. Nacho Jeffery Epithelial cells LM Ql (Urine sed) RARE Normal NONE SEEN /RARE [facility] Comment on above: Performed By: #### M G, URIC, RENAL #### [facility] [address] [place] [address] Dr. Nacho Jeffery Glucose Ql (U) Negative Normal NEGATIVE [facility] Comment on above: Performed By: #### M G, URIC, RENAL #### [facility] [address] [place] [address] Dr. Nacho Jeffery Hemoglobin Ql (U) Negative Normal NEGATIVE [facility] Comment on above: Performed By: #### M G, URIC, RENAL #### [facility] [address] [place] [address] Dr. Nacho Jeffery Ketones Ql (U) Negative Normal NEGATIVE [facility] Comment on above: Performed By: #### M G, URIC, RENAL #### [facility] [address] [place] [address] Dr. Nacho Jeffery LEUKOCYTES TRACE Abnormal NEGATIVE [facility] Comment on above: Performed By: #### M G, URIC, RENAL #### [facility] [address] [place] [address] Dr. Nacho Jeffery MUCOUS NONE SEEN Normal NONE SEEN [facility] Comment on above: Performed By: #### M G, URIC, RENAL #### [facility] [address] [address] [address] Nacho Jeffery Nitrite Ql (U) Negative Normal NEGATIVE [facility] Comment on above: Performed By: #### M G, URIC, RENAL #### [facility] [address] [address] [address] Nacho Jeffery pH (U) 5.5 [pH] Normal 5-9 [facility] Comment on above: Performed By: #### M G, URIC, RENAL #### [facility] [address] [address] [address] Nacho Jeffery RBC 0-2 Normal 0-2 [facility] Comment on above: Performed By: #### M G, URIC, RENAL #### [facility] [address] [place] [address] Dr. Nacho Jeffery SPEC GRAVITY 1.015 Normal 1.005-<=1.025 [facility] Comment on above: Performed By: #### M G, URIC, RENAL #### [facility] [address] [place] [address] Dr. Nacho Jeffery UA PROTEIN Negative Normal NEGATIVE/ TRACE [facility] Comment on above: Performed By: #### M G, URIC, RENAL #### [facility] [address] [place] [address] Dr. Nacho Jeffery Urobilinogen Qn (U) 0.2 {Zuleyka'U}/dL Normal 0.2 - 1. 0 [facility] Comment on above: Performed By: #### M G, URIC, RENAL #### [facility] [address] [place] [address] Dr. Nacho Jeffery WBC 2-5 Abnormal NONE SEEN [facility] Comment on above: Performed By: #### M G, URIC, RENAL #### [facility] [address] [place] [address] Dr. Nacho Jeffery URIC ACID SERUMon 01-15-2023 Urate [Mass/Vol] 7.0 mg/dL Critically high 2.6-6.0 [facility] Comment on above: Performed By: #### M G, URIC, RENAL #### [facility] [address] [address] [address] Nacho Jeffery URINE T PROTEIN CREAT RATIOo n 01-15-2023 Protein (U) [Mass/Vol] 13.4 mg/dL Critically high <=12.0 [facility] Comment on above: Performed By: #### U RTPCR #### [facility] [address] [address] [address] Nacho Jeffery UR PROT CREAT RAT 0.24 Normal [facility] Comment on above: Performed By: #### U RTPCR #### [facility] [address] [place] [address] Dr. Nacho Jeffery URINE CREAT 56.90 mg/dL Normal 20.00-300.00 [facility] Comment on above: Performed By: #### U RTPCR #### [facility] [address] [place] [address] Dr. Nacho Jeffery VITAMIN D 25 OHon 01-15-2023 VIT D 25-OH 52.6 ng/mL Normal [facility] Comment on above: Performed By: #### M G, URIC, RENAL #### [facility] [address] [place] [address] Dr. Nacho Jeffery VIT D RANGES SEE BELOW Normal [facility] Comment on above: Result Comment: <20 ng/mL Vit D deficient 20 - <30 ng/mL Vit D insufficient 30 - 100 ng/mL Vit D sufficient >100 ng/mL Potential Toxicity Performed By: #### M G, URIC, RENAL #### [facility] [address] [place] [address] Dr. Nacho Jeffery GLYCOHEMOGLOBIN A1Con 2021 ADA RECOMMENDATION SEE BELOW Normal [facility] Comment on above: Result Comment: ADA RECOMMENDED LIMIT 4.0 - 6.0 ADA THERAPEUTIC TARGET < 7.0 ACTION SUGGESTED > 7.0 Performed By: #### A 1C #### [facility] [address] [place] [address] Dr. Nacho Jeffery Glucose [Mass/Vol] 143 mg/dL Normal [facility] Comment on above: Performed By: #### A 1C #### [facility] [address] [address] [address] Nacho Jeffery HbA1c (Bld) [Mass fraction] 6.6 % Critically high 4.5-6.2 [facility] Comment on above: Performed By: #### A 1C #### [facility] [address] [address] [address] Nacho Jeffery LIPID PROFILEon 11-09-2022 CHOL-HDL RATIO NORM SEE BELOW Normal [facility] Comment on above: Result Comment: 3.3 - 4.4 LOW RISK 4.4 - 7.1 AVERAGE RISK 7.1 - 11.0 MODERATE RISK >11.0 HIGH RISK Performed By: #### M G, URIC, RENAL #### [facility] [address] [address] [address] Nacho Jeffery Cholesterol [Mass/Vol] 141 mg/dL Normal <=200 [facility] Comment on above: Performed By: #### M G, URIC, RENAL #### [facility] [address] [address] [address] Nacho Jeffery Cholesterol in HDL [Mass/Vol] 59 mg/dL Normal 40-60 [facility] Comment on above: Performed By: #### M G, URIC, RENAL #### [facility] [address] [address] [address] Nacho Jeffery Cholesterol in LDL [Mass/Vol] 46.2 mg/dL Normal [facility] Comment on above: Performed By: #### M G, URIC, RENAL #### [facility] [address] [address] [address] Nacho Jeffery Cholesterol.total/Ch olesterol in HDL [Mass ratio] 2.4 {ratio} Normal [facility] Comment on above: Performed By: #### M G, URIC, RENAL #### [facility] [address] [address] [address] Nacho Jeffery HDL NORMAL > or = 60 mg/dl - LOW CARDIOVASCULAR RISK <40 mg/dl - HIGH CARDIOVASCULAR RISK Normal [facility] Comment on above: Performed By: #### M G, URIC, RENAL #### [facility] [address] [address] [address] Nacho Jeffery LDL CALC NORMAL SEE BELOW Normal [facility] Comment on above: Result Comment: <100 mg/dl OPTIMAL 100 - 129 mg/dl NEAR OR ABOVE OPTIMAL 130 - 159 mg/dl BORDERLINE HIGH 160 - 189 mg/dl HIGH >190 mg/dl VERY HIGH Performed By: #### M G, URIC, RENAL #### [facility] [address] [address] [address] Nacho Jeffery Triglyceride [Mass/Vol] 179 mg/dL Critically high <=150 [facility] Comment on above: Performed By: #### M G, URIC, RENAL #### [facility] [address] [address] [address] Nacho Jeffery VLDL CALC 35.8 mg/dL Normal [facility] Comment on above: Performed By: #### M G, URIC, RENAL #### [facility] [address] [place] [address] Dr. Nacho Jeffery PROF 14(COMP METB)on 11-09- 022 Albumin [Mass/Vol] 3.2 g/dL Critically low 3.4-5.0 [facility] Comment on above: Performed By: #### M G, URIC, RENAL #### [facility] [address] [place] [address] Dr. Nacho Jeffery Albumin/Globulin [Mass ratio] 0.8 {ratio} Normal [facility] Comment on above: Performed By: #### M G, URIC, RENAL #### [facility] [address] [address] [address] Nacho Jeffery ALP [Catalytic activity/Vol] 109 U/L Normal 46-116 [facility] Comment on above: Performed By: #### M G, URIC, RENAL #### [facility] [address] [address] [address] Nacho Jeffery ALT [Catalytic activity/Vol] 38 U/L Normal 14-59 [facility] Comment on above: Performed By: #### M G, URIC, RENAL #### [facility] [address] [address] [address] Nacho Jeffery Anion gap [Moles/Vol] 13.7 mmol/L Normal [facility] Comment on above: Performed By: #### M G, URIC, RENAL #### [facility] [address] [place] [address] Dr. Nacho Jeffery AST [Catalytic activity/Vol] 27 U/L Normal 15-37 [facility] Comment on above: Performed By: #### M G, URIC, RENAL #### [facility] [address] [place] [address] Dr. Nacho Jeffery Bilirubin [Mass/Vol] 0.4 mg/dL Normal 0.2-1.0 [facility] Comment on above: Performed By: #### M Jamarcus, URIC, RENAL #### [facility] [address] [place] [address] Dr. Nacho Jeffery Calcium [Mass/Vol] 9.2 mg/dL Normal 8.5-10.1 [facility] Comment on above: Performed By: #### M G, URIC, RENAL #### [facility] [address] [place] [address] Dr. Nacho Jeffery Chloride [Moles/Vol] 105 mmol/L Normal 98-107 [facility] Comment on above: Performed By: #### M G, URIC, RENAL #### [facility] [address] [place] [address] Dr. Nacho Jeffery CO2 [Moles/Vol] 29.5 mmol/L Normal 21.0-32.0 [facility] Comment on above: Performed By: #### M G, URIC, RENAL #### [facility] [address] [place] [address] Dr. Nacho Jeffery Creatinine [Mass/Vol] 1.62 mg/dL Critically high 0.55-1.02 [facility] Comment on above: Performed By: #### M G, URIC, RENAL #### [facility] [address] [place] [address] Dr. Nacho Jeffery EGFR-AF LITHUANIAN 37 mL/min/1.73m2 Critically low >=60 [facility] Comment on above: Performed By: #### M G, URIC, RENAL #### [facility] [address] [address] [address] Nacho Jeffrey EGFR-NON AF LITHUANIAN 31 mL/min/1.73m2 Critically low >=60 [facility] Comment on above: Performed By: #### M G, URIC, RENAL #### [facility] [address] [address] [address] Nacho Jeffery Globulin (S) [Mass/Vol] 3.8 g/dL Normal [facility] Comment on above: Performed By: #### M G, URIC, RENAL #### [facility] [address] [address] [address] Nacho Jeffery Glucose [Mass/Vol] 102 mg/dL Normal 74-106 [facility] Comment on above: Performed By: #### M G, URIC, RENAL #### [facility] [address] [place] [address] Dr. Nacho Jeffery Potassium [Moles/Vol] 4.2 mmol/L Normal 3.5-5.1 [facility] Comment on above: Performed By: #### M G, URIC, RENAL #### [facility] [address] [address] [address] Nacho Jeffery Protein [Mass/Vol] 7.0 g/dL Normal 6.4-8.2 [facility] Comment on above: Performed By: #### M G, URIC, RENAL #### [facility] [address] [address] [address] Nacho Jeffery Sodium [Moles/Vol] 144 mmol/L Normal 136-145 [facility] Comment on above: Performed By: #### M G, URIC, RENAL #### [facility] [address] [address] [address] Nacho Jeffery Urea nitrogen [Mass/Vol] 45.0 mg/dL Critically high 7.0-18.0 [facility] Comment on above: Performed By: #### M G, URIC, RENAL #### [facility] [address] [place] [address] Dr. Nacho Jeffery Urea nitrogen/Creatinine [Mass ratio] 27.8 mg/mg Normal [facility] Comment on above: Performed By: #### M G, URIC, RENAL #### [facility] [address] [address] [address] Nacho Jeffery OSMOLALITY URINEon 2 Osmolality, Urine 466 mOsmol/kg Normal [facility] Comment on above: Result Comment: 24 h r : 300 - 900 Random: 50 - 1400 After 12hr fluid restriction: >850 Performed By: #### M G, URIC, RENAL #### [facility] [address] [address] [address] Nacho Jeffery PTH INTACTon 07-13-2022 PTH, Intact 84 pg/mL Critically high 15-65 [facility] Comment on above: Performed By: #### P THINT #### [facility] [address] [address] [address] Nacho Jeffery VIT D 25-OH [facility]ABC[facility]on 2021 Vitamin D, 25-Hydroxy 34.7 ng/mL Normal 30.0-100.0 [facility] Comment on above: Result Comment: Radha min D deficiency has been defined by the [place] of [employer] and an Endocrine Society practice guideline as a level of serum 25-OH vitamin D less than 20 ng/mL (1,2). The Endocrine Society went on to further define vitamin D insufficiency as a level between 21 and 29 ng/mL (2). 1. IOM ([place] of [employer]). 2010. Dietary reference intakes for calcium and D. [place]: The National Academies Press. 2. Magdiel MF, Kb NC, Evens PEPPER, et al. Evaluation, treatment, and prevention of vitamin D deficiency: an Endocrine Society clinical practice guideline. JCEM. 2010; 96(7):1911-30. Performed By: #### M G, URIC, RENAL #### [facility] [address] [address] [address] Nacho Jeffery HEMOGRAM AND PLATELon 2021 Hematocrit (Bld) [Volume fraction] 35.5 % Critically low 36.0-48.0 [facility] Comment on above: Performed By: #### M G, URIC, RENAL #### [facility] [address] [address] [address] Nacho Jeffery Hemoglobin (Bld) [Mass/Vol] 11.5 g/dL Critically low 12.0-16.0 [facility] Comment on above: Performed By: #### M G, URIC, RENAL #### [facility] [address] [address] [address] Nacho Jeffery MCH (RBC) [Entitic mass] 30.6 pg Normal 26.7-34.0 [facility] Comment on above: Performed By: #### M G, URIC, RENAL #### [facility] [address] [address] [address] Nacho Jeffery MCHC (RBC) [Mass/Vol] 32.4 g/dL Normal 29.9-35.2 [facility] Comment on above: Performed By: #### M G, URIC, RENAL #### [facility] [address] [place] [address] Dr. Nacho Jeffery MCV (RBC) [Entitic vol] 94.4 fL Normal 81.0-99.0 [facility] Comment on above: Performed By: #### M G, URIC, RENAL #### [facility] [address] [address] [address] Nacho Jeffery PLT 192 103/ul Normal 150-450 [facility] Comment on above: Performed By: #### M G, URIC, RENAL #### [facility] [address] [place] [address] Dr. Nacho Jeffery RBC 3.76 106/ul Critically low 4.20-5.40 [facility] Comment on above: Performed By: #### M G, URIC, RENAL #### [facility] [address] [place] [address] Dr. Nacho Jeffery WBC 6.1 103/ul Normal 4.0-11.0 [facility] Comment on above: Performed By: #### M G, URIC, RENAL #### [facility] [address] [address] [address] Nacho Jeffery MAGNESIUMon 07-12-2022 Magnesium [Mass/Vol] 1.3 mg/dL Critically low 1.8-2.4 [facility] Comment on above: Performed By: #### U CHRISTOFER, MG, RENAL #### [facility] [address] [address] [address] Nacho Jeffery RENAL FUNCTION PANELon 07-12 Albumin [Mass/Vol] 3.3 g/dL Critically low 3.4-5.0 [facility] Comment on above: Performed By: #### U CHRISTOFER, MG, RENAL #### [facility] [address] [address] [address] Nacho Jeffery Calcium [Mass/Vol] 9.1 mg/dL Normal 8.5-10.1 [facility] Comment on above: Performed By: #### U CHRISTOFER, MG, RENAL #### [facility] [address] [address] [address] Nacho Jeffery Chloride [Moles/Vol] 104 mmol/L Normal 98-107 [facility] Comment on above: Performed By: #### U CHRISTOFER, MG, RENAL #### [facility] [address] [place] [address] Dr. Nacho Jeffery CO2 [Moles/Vol] 31.7 mmol/L Normal 21.0-32.0 [facility] Comment on above: Performed By: #### U CHRISTOFER, MG, RENAL #### [facility] [address] [place] [address] Dr. Nacho Jeffery Creatinine [Mass/Vol] 1.52 mg/dL Critically high 0.55-1.02 [facility] Comment on above: Performed By: #### U CHRISTOFER, MG, RENAL #### [facility] [address] [place] [address] Dr. Nacho Jeffery EGFR-AF LITHUANIAN 40 mL/min/1.73m2 Critically low >=60 [facility] Comment on above: Performed By: #### U CHRISTOFER, MG, RENAL #### [facility] [address] [place] [address] Dr. Nacho Jeffery EGFR-NON AF LITHUANIAN 33 mL/min/1.73m2 Critically low >=60 [facility] Comment on above: Performed By: #### U CHRISTOFER, MG, RENAL #### [facility] [address] [address] [address] Nacho Jeffery Glucose [Mass/Vol] 221 mg/dL Critically high 74-106 [facility] [place] Comment on above: Performed By: #### U CHRISTOFER, MG, RENAL #### [facility] [address] [address] [address] Nacho Jeffery Phosphate [Mass/Vol] 3.8 mg/dL Normal 2.6-4.7 [facility] Comment on above: Performed By: #### U CHRISTOFER, MG, RENAL #### [facility] [address] [address] [address] Nacho Jeffery Potassium [Moles/Vol] 4.1 mmol/L Normal 3.5-5.1 [facility] Comment on above: Performed By: #### U CHRISTOFER, MG, RENAL #### [facility] [address] [place] [address] Dr. Nacho Jeffery Sodium [Moles/Vol] 143 mmol/L Normal 136-145 [facility] Comment on above: Performed By: #### U CHRISTOFER, MG, RENAL #### [facility] [address] [address] [address] Nacho Jeffery Urea nitrogen [Mass/Vol] 45.0 mg/dL Critically high 7.0-18.0 [facility] Comment on above: Performed By: #### U CHRISTOFER, MG, RENAL #### [facility] [address] [address] [address] Nacho Jeffery UA RANDOM W/MICROSCOPICon BACTERIA NONE SEEN Normal NONE SEEN [facility] Comment on above: Performed By: #### M G, URIC, RENAL #### [facility] [address] [place] [address] Dr. Nacho Jeffery Bilirubin Ql (U) Negative Normal NEGATIVE [facility] Comment on above: Performed By: #### M G, URIC, RENAL #### [facility] [address] [place] [address] Dr. Nacho Jeffery CAST NONE SEEN Normal NONE SEEN [facility] Comment on above: Performed By: #### M G, URIC, RENAL #### [facility] [address] [address] [address] Nacho Jeffery Clarity (U) CLEAR Normal CLEAR [facility] Comment on above: Performed By: #### M G, URIC, RENAL #### [facility] [address] [place] [address] Dr. Nacho Jeffery Color (U) LT. YELLOW Normal YELLOW [facility] Comment on above: Performed By: #### M G, URIC, RENAL #### [facility] [address] [place] [address] Dr. Nacho Jeffery Crystals LM Nom (Urine sed) NONE SEEN Normal NONE SEEN [facility] Comment on above: Performed By: #### M G, URIC, RENAL #### [facility] [address] [place] [address] Dr. Nacho Jeffery Epithelial cells LM Ql (Urine sed) FEW Abnormal NONE SEEN /RARE [facility] Comment on above: Performed By: #### M G, URIC, RENAL #### [facility] [address] [place] [address] Dr. Nacho Jeffery Glucose Ql (U) Negative Normal NEGATIVE [facility] Comment on above: Performed By: #### M G, URIC, RENAL #### [facility] [address] [place] [address] Dr. Nacho Jeffery Hemoglobin Ql (U) Negative Normal NEGATIVE [facility] Comment on above: Performed By: #### M G, URIC, RENAL #### [facility] [address] [place] [address] Dr. Nacho Jeffery Ketones Ql (U) Negative Normal NEGATIVE [facility] Comment on above: Performed By: #### M G, URIC, RENAL #### [facility] [address] [place] [address] Dr. Nacho Jeffery LEUKOCYTES TRACE Abnormal NEGATIVE [facility] Comment on above: Performed By: #### M G, URIC, RENAL #### [facility] [address] [place] [address] Dr. Nacho Jeffery MUCOUS NONE SEEN Normal NONE SEEN [facility] Comment on above: Performed By: #### M G, URIC, RENAL #### [facility] [address] [address] [address] Nacho Jeffery Nitrite Ql (U) Negative Normal NEGATIVE [facility] Comment on above: Performed By: #### M G, URIC, RENAL #### [facility] [address] [address] [address] Nacho Jeffery pH (U) 6.0 [pH] Normal 5-9 [facility] Comment on above: Performed By: #### M G, URIC, RENAL #### [facility] [address] [place] [address] Dr. Nacho Jeffery RBC NONE SEEN Abnormal 0-2 [facility] Comment on above: Performed By: #### M G, URIC, RENAL #### [facility] [address] [place] [address] Dr. Nacho Jeffery SPEC GRAVITY 1.015 Normal 1.005-<=1.025 [facility] Comment on above: Performed By: #### M G, URIC, RENAL #### [facility] [address] [place] [address] Dr. Nacho Jeffery UA PROTEIN Negative Normal NEGATIVE/ TRACE [facility] Comment on above: Performed By: #### M G, URIC, RENAL #### [facility] [address] [place] [address] Dr. Nacho Jeffery Urobilinogen Qn (U) 0.2 {Zuleyka'U}/dL Normal 0.2 - 1. 0 [facility] Comment on above: Performed By: #### M G, URIC, RENAL #### [facility] [address] [place] [address] Dr. Nacho Jeffery WBC 2-5 Abnormal NONE SEEN [facility] Comment on above: Performed By: #### M G, URIC, RENAL #### [facility] [address] [place] [address] Dr. Nacho Jeffery URIC ACID SERUMon 07-12-2022 Urate [Mass/Vol] 7.9 mg/dL Critically high 2.6-6.0 [facility] Comment on above: Performed By: #### U CHRISTOFER, MG, RENAL #### [facility] [address] [place], [place] [address] Dr. Nacho Jeffery URINE T PROTEIN CREAT RATIOo n 07-12-2022 Protein (U) [Mass/Vol] 17.5 mg/dL Critically high <=12.0 [facility] Comment on above: Performed By: #### M G, URIC, RENAL #### [facility] [address] [address] [address] Nacho Jeffery UR PROT CREAT RAT 0.29 Normal [facility] Comment on above: Performed By: #### M G, URIC, RENAL #### [facility] [address] [address] [address] Nacho Jeffery URINE CREAT 60.37 mg/dL Normal 20.00-300.00 [facility] Comment on above: Performed By: #### M G, URIC, RENAL #### [facility] [address] [address] [address] Nacho Jeffery ALBUMIN, RANDOM URINE W/CREA TININEon 05-11-2022 ALBUMIN, URINE 0.5 mg/dL Normal See Note: [facility] Comment on above: Result Comment: Refe rence Range: Reference Range Not established Performed By: #### 4 96, 7600, 6517, 67814 #### [facility] [address], [address] [place] [address] Manager Copy: Mauricio Kern MD ALBUMIN/CREATININE RATIO, RANDOM URINE 7 mcg/mg creat Normal <30 [facility] Comment on above: Result [...] Performed By: #### 4 96, 7600, 6517, 91246 #### [facility] [address], [address] [place] [address] Manager Copy: Mauricio Kern MD Creatinine (U) [Mass/Vol] 74 mg/dL Normal 20-275 [facility] Comment on above: Performed By: #### 4 96, 7600, 6517, 68116 #### [facility] [address] [address] Manager Copy: Mauricio Kern MD BASIC METABOLIC PANELon 04-14 GLUCOSE Normal [facility] Comment on above: Result Comment: TEST NOT PERFORMED No specimen received. Performed By: #### 4 96, 7600, 6517, 29205 #### [facility] [address] [address] Manager Copy: Mauricio Kern MD HEMOGLOBIN A1con 05-11-2022 HEMOGLOBIN A1c Normal [facility] Comment on above: Result Comment: TEST NOT PERFORMED No specimen received. Performed By: #### 4 96, 7600, 6517, 17749 #### [facility] [address] [address] Manager Copy: Mauricio Kern MD LIPID PANEL, STANDARDon 04-14 CHOL/HDLC RATIO Normal [facility] Comment on above: Result Comment: TEST NOT PERFORMED No specimen received. Performed By: #### 4 96, 7600, 6517, 19648 #### [facility] [address] [address] Manager Copy: Mauricio Kern MD CHOLESTEROL, TOTAL Normal [facility] Comment on above: Result Comment: TEST NOT PERFORMED No specimen received. Performed By: #### 4 96, 7600, 6517, 78654 #### [facility] [address] [address] Manager Copy: Mauricio Kern MD HDL CHOLESTEROL Normal [facility] Comment on above: Result Comment: TEST NOT PERFORMED No specimen received. Performed By: #### 4 96, 7600, 6517, 50597 #### [facility] [address] [address] Manager Copy: Mauricio Kern MD LDL-CHOLESTEROL Normal [facility] Comment on above: Result Comment: TEST NOT PERFORMED No specimen received. Performed By: #### 4 96, 7600, 6517, 25210 #### [facility] of [address], [address] [place] [address] Manager Copy: Mauricio Kern MD NON HDL CHOLESTEROL Normal [facility] Comment on above: Result Comment: TEST NOT PERFORMED No specimen received. Performed By: #### 4 96, 7600, 6517, 52867 #### [facility] of [address], [address] [place] [address] Manager Copy: Mauricio Kern MD TRIGLYCERIDES Normal [facility] Comment on above: Result Comment: TEST NOT PERFORMED No specimen received. Performed By: #### 4 96, 7600, 6517, 11215 #### [facility] of [address], [address] [place] [address] Manager Copy: Mauricio Kern MD BASIC METABOLIC PANELon 06-2 Calcium [Mass/Vol] 9.1 mg/dL Normal 8.6-10.4 [facility] Comment on above: Performed By: #### 1 0165, 496, 7600 #### [facility] of [address], [address] [place] [address] Manager Copy: Mauricio Kern MD Chloride [Moles/Vol] 105 mmol/L Normal 98-110 [facility] Comment on above: Performed By: #### 1 0165, 496, 7600 #### [facility] [address] [address] Manager Copy: Mauricio Kern MD CO2 [Moles/Vol] 25 mmol/L Normal 20-32 [facility] Comment on above: Performed By: #### 1 0165, 496, 7600 #### [facility] of [address], [address] [place] [address] Manager Copy: Mauricio Kern MD Creatinine [Mass/Vol] 1.73 mg/dL High 0.60-0.93 [facility] Comment on above: Result Comment: For patients >49 years of age, the reference limit for Creatinine is approximately 13% higher for people identified as -Spanish. Performed By: #### 1 0165, 496, 7600 #### [facility] [address], [address] [place] [address] Manager Copy: Mauricio Kern MD eGFR NON-AFR. LITHUANIAN 28 mL/min/1.73m2 Low > OR = 60 [facility] Comment on above: Performed By: #### 1 0165, 496, 7600 #### [facility] [address] [address] Manager Copy: Mauricio Kern MD GFR/1.73 sq M.predicted among blacks MDRD (S/P/Bld) [Vol rate/Area] 32 mL/min/{1.73_m2} Low > OR = 60 [facility] Comment on above: Performed By: #### 1 0165, 496, 7600 #### [facility] [address] [address] Manager Copy: Mauricio Kern MD Glucose [Mass/Vol] 137 mg/dL High 65-99 [facility] Comment on above: Result Comment: Fasting reference interval For someone without known diabetes, a glucose value >125 mg/dL indicates that they may have diabetes and this should be confirmed with a follow-up test. Performed By: #### 1 016, 496, 7600 #### [facility] [address] [address] Manager Copy: Mauricio Kern MD Potassium [Moles/Vol] 4.6 mmol/L Normal 3.5-5.3 [facility] Comment on above: Performed By: #### 1 0165, 496, 7600 #### [facility] [address] [address] Manager Copy: Mauricio Kern MD Sodium [Moles/Vol] 142 mmol/L Normal 135-146 [facility] Comment on above: Performed By: #### 1 0165, 496, 7600 #### [facility] [address] [address] Manager Copy: Mauricio Kern MD Urea nitrogen [Mass/Vol] 65 mg/dL High 7-25 [facility] Comment on above: Performed By: #### 1 0165, 496, 7600 #### [facility] [address] [address] Manager Copy: Mauricio Kern MD Urea nitrogen/Creatinine [Mass ratio] 38 mg/mg High 6-22 [facility] Comment on above: Performed By: #### 1 0165, 496, 7600 #### [facility] [address], [address] [place] [address] Manager Copy: Mauricio Kern MD HEMOGLOBIN A1con 05-04-2022 HEMOGLOBIN [...] 1 0165, 496, 7600 #### [facility] [address], [address] [place] [address] Manager Copy: Mauricio Kern MD LIPID PANEL, STANDARDon 04-13 Cholesterol [Mass/Vol] 163 mg/dL Normal <200 [facility] Comment on above: Order Comment: FASTI NG:YES PATIENT UNABLE TO VOID; ADVISED TO RETURN FOR COLLECTION. FASTING: YES Performed By: #### 1 0165, 496, 7600 #### [facility] [address], [address] [place] [address] Manager Copy: Mauricio Kern MD Cholesterol in HDL [Mass/Vol] 51 mg/dL Normal > OR = 50 [facility] Comment on above: Order Comment: FASTI NG:YES PATIENT UNABLE TO VOID; ADVISED TO RETURN FOR COLLECTION. FASTING: YES Performed By: #### 1 0165, 491, 2600 #### [facility] [address], [address] [place] [address] Manager Copy: Mauricio Kern MD Cholesterol in LDL [Mass/Vol] [...] factors. LDL-C is now calculated using the Iker calculation, which is a validated novel method providing better accuracy than the Friedewald equation in the estimation of LDL-C. Sean SS et al. SHRUTHI. 2013;310(19): 1885-4440 (http://education.QualySense/faq/PJW757) Performed By: #### 1 0165, 49, 3960 #### [facility] [address], [address] [place] [address] Manager Copy: Mauricio Kern MD Cholesterol.total/Ch olesterol in HDL [Mass ratio] 3.2 {ratio} Normal <5.0 [facility] Comment on above: Order Comment: FASTI NG:YES PATIENT UNABLE TO VOID; ADVISED TO RETURN FOR COLLECTION. FASTING: YES Performed By: #### 1 0165, 495, 5180 #### [facility] [address], [address] [place] [address] Manager Copy: Mauricio Kern MD NON HDL CHOLESTEROL 112 [...] option. Performed By: #### 1 0165, 496, 8640 #### [facility] [address], [address] [place] [address] Manager Copy: Mauricio Kern MD Triglyceride [Mass/Vol] 181 mg/dL High <150 [facility] Comment on above: Order Comment: FASTI NG:YES PATIENT UNABLE TO VOID; ADVISED TO RETURN FOR COLLECTION. FASTING: YES Performed By: #### 1 0165, 496, 7600 #### [facility] [address], [address] [place] [address] Manager Copy: Mauricio Kern MD PTH INTACTon 03-31-2022 PTH, Intact 111 pg/mL Critically high 15-65 [facility] Comment on above: Performed By: #### M G, URIC, RENAL #### [facility] [address] [address] [address] Nacho Jeffery FERRITINon 03-30-2022 Ferritin [Mass/Vol] 479.0 ng/mL Critically high 8.0-252.0 [facility] Comment on above: Performed By: #### M G, URIC, RENAL #### [facility] [address] [address] [address] Nacho Jeffery HEMOGRAM AND PLATELon 2021 Hematocrit (Bld) [Volume fraction] 38.1 % Normal 36.0-48.0 [facility] Comment on above: Performed By: #### M G, URIC, RENAL #### [facility] [address] [address] [address] Nacho Jeffery Hemoglobin (Bld) [Mass/Vol] 12.9 g/dL Normal 12.0-16.0 [facility] Comment on above: Performed By: #### M G, URIC, RENAL #### [facility] [address] [address] [address] Nacho Jeffery MCH (RBC) [Entitic mass] 32.8 pg Normal 26.7-34.0 [facility] Comment on above: Performed By: #### M G, URIC, RENAL #### [facility] [address] [address] [address] Nacho Jeffery MCHC (RBC) [Mass/Vol] 33.9 g/dL Normal 29.9-35.2 [facility] Comment on above: Performed By: #### M G, URIC, RENAL #### [facility] [address] [address] [address] Nacho Jeffery MCV (RBC) [Entitic vol] 96.9 fL Normal 81.0-99.0 [facility] Comment on above: Performed By: #### M G, URIC, RENAL #### [facility] [address] [address] [address] Nacho Jeffery PLT 191 103/ul Normal 150-450 [facility] Comment on above: Performed By: #### M G, URIC, RENAL #### [facility] [address] [address] [address] Nacho Jeffery RBC 3.93 106/ul Critically low 4.20-5.40 [facility] Comment on above: Performed By: #### M G, URIC, RENAL #### [facility] [address] [address] [address] Nacho Jeffery WBC 7.2 103/ul Normal 4.0-11.0 [facility] Comment on above: Performed By: #### M G, URIC, RENAL #### [facility] [address] [address] [address] Nacho Jeffery IRON AND TIBCon 03-30-2022 % SATURATION 21.6 % Normal [facility] Comment on above: Performed By: #### M G, URIC, RENAL #### [facility] [address] [address] [address] Nacho Jeffery Iron [Mass/Vol] 63.0 ug/dL Normal 50.0-170.0 [facility] Comment on above: Performed By: #### M G, URIC, RENAL #### [facility] [address] [address] [address] Nacho Jeffery TIBC DIRECT 292.0 ug/dL Normal 250.0-450.0 [facility] Comment on above: Performed By: #### M G, URIC, RENAL #### [facility] [address] [address] [address] Nacho Jeffery MAGNESIUMon 03-30-2022 Magnesium [Mass/Vol] 1.7 mg/dL Critically low 1.8-2.4 [facility] Comment on above: Performed By: #### M G, URIC, RENAL #### [facility] [address] [address] [address] Nacho Jeffery RENAL FUNCTION PANELon 03-30 Albumin [Mass/Vol] 3.4 g/dL Normal 3.4-5.0 [facility] Comment on above: Performed By: #### M G, URIC, RENAL #### [facility] [address] [place] [address] Dr. Nacho Jeffery Calcium [Mass/Vol] 9.3 mg/dL Normal 8.5-10.1 [facility] Comment on above: Performed By: #### M Jamarcus, URIC, RENAL #### [facility] [address] [place] [address] Dr. Nacho Jeffery Chloride [Moles/Vol] 102 mmol/L Normal 98-107 [facility] Comment on above: Performed By: #### M Jamarcus, URIC, RENAL #### [facility] [address] [place] [address] Dr. Nacho Jeffery CO2 [Moles/Vol] 31.7 mmol/L Normal 21.0-32.0 [facility] Comment on above: Performed By: #### M Jamarcus, URIC, RENAL #### [facility] [address] [place] [address] Dr. Nacho Jeffery Creatinine [Mass/Vol] 2.05 mg/dL Critically high 0.55-1.02 [facility] Comment on above: Performed By: #### M G, URIC, RENAL #### [facility] [address] [place] [address] Dr. Nacho Jeffery EGFR-AF LITHUANIAN 28 mL/min/1.73m2 Critically low >=60 [facility] Comment on above: Performed By: #### M G, URIC, RENAL #### [facility] [address] [place] [address] Dr. Nacho Jeffery EGFR-NON AF LITHUANIAN 23 mL/min/1.73m2 Critically low >=60 [facility] Comment on above: Performed By: #### M G, URIC, RENAL #### [facility] [address] [address] [address] Nacho Jeffery Glucose [Mass/Vol] 194 mg/dL Critically high 74-106 [facility] Comment on above: Performed By: #### M G, URIC, RENAL #### [facility] [address] [place] [address] Dr. Nacho Jeffery Phosphate [Mass/Vol] 3.2 mg/dL Normal 2.6-4.7 [facility] Comment on above: Performed By: #### M G, URIC, RENAL #### [facility] [address] [place] [address] Dr. Nacho Jeffery Potassium [Moles/Vol] 4.6 mmol/L Normal 3.5-5.1 [facility] Comment on above: Performed By: #### M G, URIC, RENAL #### [facility] [address] [place] [address] Dr. Nacho Jeffery Sodium [Moles/Vol] 141 mmol/L Normal 136-145 [facility] Comment on above: Performed By: #### M G, URIC, RENAL #### [facility] [address] [place] [address] Dr. Nacho Jfefery Urea nitrogen [Mass/Vol] 64.0 mg/dL Critically high 7.0-18.0 [facility] Comment on above: Performed By: #### M G, URIC, RENAL #### [facility] [address] [place] [address] Dr. Nacho Jeffery UA RANDOM W/MICROSCOPICon BACTERIA NONE SEEN Normal NONE SEEN [facility] Comment on above: Performed By: #### M G, URIC, RENAL #### [facility] [address] [place] [address] Dr. Nacho Jeffery Bilirubin Ql (U) Negative Normal NEGATIVE [facility] Comment on above: Performed By: #### M G, URIC, RENAL #### [facility] [address] [place] [address] Dr. Nacho Jeffery CAST NONE SEEN Normal NONE SEEN [facility] Comment on above: Performed By: #### M G, URIC, RENAL #### [facility] [address] [address] [address] Nacho Jeffery Clarity (U) CLEAR Normal CLEAR [facility] Comment on above: Performed By: #### M G, URIC, RENAL #### [facility] [address] [address] [address] Nacho Jeffery Color (U) LT. YELLOW Normal YELLOW [facility] Comment on above: Performed By: #### M G, URIC, RENAL #### [facility] [address] [address] [address] Nacho Jeffery Crystals LM Nom (Urine sed) NONE SEEN Normal NONE SEEN [facility] Comment on above: Performed By: #### M G, URIC, RENAL #### [facility] [address] [place] [address] Dr. Nacho Jeffery Epithelial cells LM Ql (Urine sed) FEW Abnormal NONE SEEN /RARE [facility] Comment on above: Performed By: #### M G, URIC, RENAL #### [facility] [address] [place] [address] Dr. Nacho Jeffery Glucose Ql (U) Negative Normal NEGATIVE [facility] Comment on above: Performed By: #### M G, URIC, RENAL #### [facility] [address] [place] [address] Dr. Nacho Jeffery Hemoglobin Ql (U) Negative Normal NEGATIVE [facility] Comment on above: Performed By: #### M G, URIC, RENAL #### [facility] [address] [address] [address] Nacho Jeffery Ketones Ql (U) Negative Normal NEGATIVE [facility] Comment on above: Performed By: #### M G, URIC, RENAL #### [facility] [address] [place] [address] Dr. Nacho Jeffery LEUKOCYTES SMALL Abnormal NEGATIVE [facility] Comment on above: Performed By: #### M G, URIC, RENAL #### [facility] [address] [address] [address] Nacho Jeffery MUCOUS NONE SEEN Normal NONE SEEN [facility] Comment on above: Performed By: #### M G, URIC, RENAL #### [facility] [address] [address] [address] Nacho Jeffery Nitrite Ql (U) Negative Normal NEGATIVE [facility] Comment on above: Performed By: #### M G, URIC, RENAL #### [facility] [address] [address] [address] Nacho Jeffery pH (U) 5.5 [pH] Normal 5-9 [facility] Comment on above: Performed By: #### M G, URIC, RENAL #### [facility] [address] [address] [address] Nacho Jeffery RBC 0-2 Normal 0-2 [facility] Comment on above: Performed By: #### M G, URIC, RENAL #### [facility] [address] [place] [address] Dr. Nacho Jeffery SPEC GRAVITY 1.015 Normal 1.005-<=1.025 [facility] Comment on above: Performed By: #### M G, URIC, RENAL #### [facility] [address] [address] [address] Nacho Jeffery UA PROTEIN Negative Normal NEGATIVE/ TRACE [facility] Comment on above: Performed By: #### M G, URIC, RENAL #### [facility] [address] [place] [address] Dr. Nacho Jeffery Urobilinogen Qn (U) 0.2 {Zuleyka'U}/dL Normal 0.2 - 1. 0 [facility] Comment on above: Performed By: #### M G, URIC, RENAL #### [facility] [address] [address] [address] Nacho Jeffery WBC 5-10 Abnormal NONE SEEN [facility] Comment on above: Performed By: #### M G, URIC, RENAL #### [facility] [address] [place] [address] Dr. Nacho Jeffery URIC ACID SERUMon 03-30-2022 Urate [Mass/Vol] 7.0 mg/dL Critically high 2.6-6.0 [facility] Comment on above: Performed By: #### M G, URIC, RENAL #### [facility] [address] [address] [address] Nacho Jeffery URINE T PROTEIN CREAT RATIOo n 03-30-2022 Protein (U) [Mass/Vol] 7.1 mg/dL Normal <=12.0 [facility] Comment on above: Performed By: #### U RTPCR #### [facility] [address] [address] [address] Nacho Jeffery UR PROT CREAT RAT 0.06 Normal [facility] Comment on above: Performed By: #### U RTPCR #### [facility] [address] [address] [address] Nacho Jeffery URINE CREAT 113.23 mg/dL Normal 20.00-300.00 [facility] Comment on above: Performed By: #### U RTPCR #### [facility] [address] [place] [address] Dr. Nacho Jeffery VITAMIN D 25 OHon 03-30-2022 VIT D 25-OH 57.4 ng/mL Normal [facility] Comment on above: Performed By: #### M G, URIC, RENAL #### [facility] [address] [place] [address] Dr. Nacho Jeffery VIT D RANGES SEE BELOW Normal [facility] Comment on above: Result Comment: <20 ng/mL Vit D deficient 20 - <30 ng/mL Vit D insufficient 30 - 100 ng/mL Vit D sufficient >100 ng/mL Potential Toxicity Performed By: #### M G, URIC, RENAL #### [facility] [address] [place] [address] Dr. Nacho Jeffery COMPREHENSIVE METABOLIC PANE Jared 08-30-2021 Albumin [Mass/Vol] 3.7 g/dL Normal 3.6-5.1 [facility] Comment on above: Performed By: #### 1 7391, 1420 #### [facility] [address], [address] [place] [id number] Manager Copy: Mauricio Kern MD Albumin/Globulin [Mass ratio] 1.4 {ratio} Normal 1.0-2.5 [facility] Comment on above: Performed By: #### 1 0231, 7600 #### [facility] of [address] [address] Manager Copy: Mauricio Kern MD ALP [Catalytic activity/Vol] 98 U/L Normal 37-153 [facility] Comment on above: Performed By: #### 1 0231, 7600 #### [facility] of [address], [address] [place] [address] Manager Copy: Mauricio Kern MD ALT [Catalytic activity/Vol] 23 U/L Normal 6-29 [facility] Comment on above: Performed By: #### 1 0231, 7600 #### [facility] [address] [address] Manager Copy: Mauricio Kern MD AST [Catalytic activity/Vol] 22 U/L Normal 10-35 [facility] Comment on above: Performed By: #### 1 023, 7600 #### [facility] [address] [place] [address] Manager Copy: Mauricio Kern MD Bilirubin [Mass/Vol] 0.4 mg/dL Normal 0.2-1.2 [facility] Comment on above: Performed By: #### 1 0231, 7600 #### [facility] [address] [place] [address] Manager Copy: Mauricio Kern MD Calcium [Mass/Vol] 9.2 mg/dL Normal 8.6-10.4 [facility] Comment on above: Performed By: #### 1 0231, 7600 #### [facility] [address] [place] [address] Manager Copy: Mauricio Kern MD Chloride [Moles/Vol] 103 mmol/L Normal 98-110 [facility] Comment on above: Performed By: #### 1 0231, 7600 #### [facility] [address] [place] [address] Manager Copy: Mauricio Kern MD CO2 [Moles/Vol] 28 mmol/L Normal 20-32 [facility] Comment on above: Performed By: #### 1 023, 7600 #### [facility] [address] [place] [address] Manager Copy: Mauricio Kern MD Creatinine [Mass/Vol] 2.22 mg/dL High 0.60-0.93 [facility] Comment on above: Result Comment: For patients >49 years of age, the reference limit for Creatinine is approximately 13% higher for people identified as -Spanish. Performed By: #### 1 023, 7600 #### [facility] [address] [place] [address] Manager Copy: Mauricio Kern MD eGFR NON-AFR. LITHUANIAN 21 mL/min/1.73m2 Low > OR = 60 [facility] Comment on above: Performed By: #### 1 023, 7600 #### [facility] [address] [place] [address] Manager Copy: Mauricio Kern MD GFR/1.73 sq M.predicted among blacks MDRD (S/P/Bld) [Vol rate/Area] 24 mL/min/{1.73_m2} Low > OR = 60 [facility] Comment on above: Performed By: #### 1 023, 7600 #### [facility] [address] [place] [address] Manager Copy: Mauricio Kern MD Globulin (S) [Mass/Vol] 2.7 g/dL Normal 1.9-3.7 [facility] Comment on above: Performed By: #### 1 023, 7600 #### [facility] [address] [place] [address] Manager Copy: Mauricio Kern MD Glucose [Mass/Vol] 107 mg/dL High 65-99 [facility] Comment on above: Result Comment: Fasting reference interval For someone without known diabetes, a glucose value between 100 and 125 mg/dL is consistent with prediabetes and should be confirmed with a follow-up test. Performed By: #### 1 0231, 7600 #### [facility] of [address], [address] [place] [address] Manager Copy: Mauricio Kern MD Potassium [Moles/Vol] 4.7 mmol/L Normal 3.5-5.3 [facility] Comment on above: Performed By: #### 1 0231, 7600 #### [facility] of [address], [address] [place] [address] Manager Copy: Mauricio Kern MD Protein [Mass/Vol] 6.4 g/dL Normal 6.1-8.1 [facility] Comment on above: Performed By: #### 1 0231, 7600 #### [facility] of [address], [address] [place] [address] Manager Copy: Mauricio Kern MD Sodium [Moles/Vol] 141 mmol/L Normal 135-146 [facility] Comment on above: Performed By: #### 1 0231, 7600 #### [facility] of [address], [address] [place] [address] Manager Copy: Mauricio Kern MD Urea nitrogen [Mass/Vol] 69 mg/dL High 7-25 [facility] Comment on above: Performed By: #### 1 0231, 7600 #### [facility] of [address], [address] [place] [address] Manager Copy: Mauricio Kern MD Urea nitrogen/Creatinine [Mass ratio] 31 mg/mg High 6-22 [facility] Comment on above: Performed By: #### 1 0231, 7600 #### [facility] of [address], [address] [place] [address] Manager Copy: Mauricio Kern MD LIPID PANEL, [facility] 08-12 Cholesterol [Mass/Vol] 142 mg/dL Normal <200 [facility] Comment on above: Order Comment: FASTI NG:YES FASTING: YES Performed By: #### 1 0231, 7600 #### [facility] of [address], [address] [place] [address] Manager Copy: Mauricio Kern MD Cholesterol in HDL [Mass/Vol] 47 mg/dL Low > OR = 50 [facility] Comment on above: Order Comment: FASTI NG:YES FASTING: YES Performed By: #### 1 023, 7600 #### [facility] [address], [address] [place] [address] Manager Copy: Mauricio Kern MD Cholesterol in LDL [Mass/Vol] 69 mg/dL Normal [facility] Comment on above: Order Comment: FASTI NG:YES FASTING: YES Result Comment: Refe rence range: <100 Desirable range <100 mg/dL for primary prevention; <70 mg/dL for patients with CHD or diabetic patients with > or = 2 CHD risk factors. LDL-C is now calculated using the Iker calculation, which is a validated novel method providing better accuracy than the Friedewald equation in the estimation of LDL-C. Sean SS et al. SHRUTHI. 2013;310(19): 5245-4153 (http://education.Digital Karma.EffiCity/faq/UAG923) Performed By: #### 1 023, 0 #### [facility] [address] [place] [address] Manager Copy: Mauricio Kern MD Cholesterol.total/Ch olesterol in HDL [Mass ratio] 3.0 {ratio} Normal <5.0 [facility] Comment on above: Order Comment: FASTI NG:YES FASTING: YES Performed By: #### 1 023, 0 #### [facility] [address], [address] [place] [address] Manager Copy: Mauricio Kern MD NON HDL CHOLESTEROL 95 mg/dL (calc) Normal <130 [facility] Comment on above: Order Comment: FASTI NG:YES FASTING: YES Result Comment: For patients with diabetes plus 1 major ASCVD risk factor, treating to a non-HDL-C goal of <100 mg/dL (LDL-C of <70 mg/dL) is considered a therapeutic option. Performed By: #### 1 023, 7600 #### [facility] [address], [place] [address] Manager Copy: Mauricio Kern MD Triglyceride [Mass/Vol] 188 mg/dL High <150 [facility] Comment on above: Order Comment: FASTI NG:YES FASTING: YES Performed By: #### 1 0231, 7600 #### [facility] [address], [address] [place] [address] Manager Copy: Mauricio Kern MD BASIC METABOLIC PANEL 03-12 Calcium [Mass/Vol] 10.0 mg/dL Normal 8.6-10.3 [facility] Comment on above: Performed By: #### 0 0071 #### [facility] [address] [place] [address], [facility] Chloride [Moles/Vol] 101 mmol/L Normal 98-107 [facility] Comment on above: Performed By: #### 0 0071 #### [facility] [address] [place] [address], [facility] CO2 [Moles/Vol] 28 mmol/L Normal 21-31 [facility] Comment on above: Performed By: #### 0 0071 #### [facility] [address] [place] [address], [facility] Creatinine [Mass/Vol] 1.96 mg/dL High 0.60-1.20 [facility] Comment on above: Performed By: #### 0 0071 #### [facility] [address] [place] [address], [facility] eGFR- 30 ml/min/1.73sq m Abnormal >60 [facility] Comment on above: Result Comment: Calc ulation may not be valid for patients over 70 years Performed By: #### 0 0071 #### [facility] [address] [place] [address], [facility] eGFR- non- 24 ml/min/1.73sq m Abnormal >60 [facility] Comment on above: Result Comment: Calc ulation may not be valid for patients over 70 years Performed By: #### 0 0071 #### [facility] [address] [place] [address], [place] Glucose [Mass/Vol] 171 mg/dL High 70-100 [facility] Comment on above: Performed By: #### 0 0071 #### [facility] [address] [place] [address], [place] Potassium [Moles/Vol] 3.9 mmol/L Normal 3.5-5.1 [facility] Comment on above: Performed By: #### 0 0071 #### [facility] [address] [place] [address], [place] Sodium [Moles/Vol] 139 mmol/L Normal 136-145 [facility] Comment on above: Performed By: #### 0 0071 #### [facility] [address] [place] [address], [place] Urea nitrogen [Mass/Vol] 66 mg/dL High 7-25 [facility] Comment on above: Performed By: #### 0 0071 #### [facility] [address] [place] [address], [facility] Cardiovascular Lab Reporton 03-30-2021 Cardiovascular Lab Report [facility] Patient Name: Adore Wolff [facility] MR #: [id number] Physician: Moe Parham, Department of M.D. Medicine Service Date: 03/30/2021 Division of Birthdate: 1940 Cardiology Room #: Adult Cardiovascular Services [facility] [address] [place], [place] [address] Cardiovascular Laboratory Report FINAL IMPRESSIONS: 1. Moderate [...] Coreg 25 mg p.o. b.i.d., and continue angiotensin-convert ing enzyme inhibitor/receptor vince. 4. Follow up with [facility] Cardiology in the next 2 [...] the left radial artery was obtained. A 6-Mozambican glide sheath was inserted without difficulty. Bilateral selective coronary angiography was performed using JL4 and a 4-Mozambican 3DRC catheter. After reviewing the images and [...] Parham M.D. Date Trans: 03/30/2021 03:19 P/molly [id number] cc: Fernie Hackett M.D. [address] [place] [id number] [facility] Vital Signs Date Time Vital Sign Value Performing Clinician Facility 08-23-2023 12:20-0400 Body height 165.1 cm [facility] 08-23-2023 12:20-0400 Body mass index (BMI) [Ratio] 44.09 kg/m2 [facility] 08-23-2023 12:20-0400 Body temperature 96.6 [degF] [facility] 08-23-2023 12:20-0400 Body weight 120.2 kg [facility] Other [facility] 08-23-2023 12:20-0400 Diastolic blood pressure 86 mm[Hg] [facility] 08-23-2023 12:20-0400 Respiratory rate 18 /min [facility] 08-23-2023 12:20-0400 SaO2% (BldA) [Mass fraction] 96 % [facility] 08-23-2023 12:20-0400 Systolic blood pressure 138 mm[Hg] [facility] 01-25-2023 12:20-0400 Body height 165.1 cm [facility] 01-25-2023 12:20-0400 Body mass index (BMI) [Ratio] 45.76 kg/m2 [facility] 01-25-2023 12:20-0400 Body temperature 96.7 [degF] [facility] 01-25-2023 12:20-0400 Body weight 124.74 kg [facility] Other [facility] Other 01-25-2023 12:20-0400 Diastolic blood pressure 80 mm[Hg] [facility] 01-25-2023 12:20-0400 Respiratory rate 18 /min [facility] 01-25-2023 12:20-0400 SaO2% (BldA) [Mass fraction] 96 % [facility] 01-25-2023 12:20-0400 Systolic blood pressure 139 mm[Hg] [facility] Other 07-20-2022 13:00-0400 Body height 165.1 cm [facility] Other [facility] Other 07-20-2022 13:00-0400 Body temperature 96 [degF] [facility] Other [facility] Other 07-20-2022 13:00-0400 Diastolic blood pressure 71 mm[Hg] [facility] Other [facility] Other 07-20-2022 13:00-0400 Respiratory rate 18 /min [facility] Other [facility] Other 07-20-2022 13:00-0400 SaO2% (BldA) [Mass fraction] 96 % [facility] Other [facility] Other 07-20-2022 13:00-0400 Systolic blood pressure 134 mm[Hg] [facility] Other [facility] Other 04-06-2022 12:00-0400 Body height 165.1 cm [facility] Other [facility] Other 04-06-2022 12:00-0400 Body mass index (BMI) [Ratio] 46.32 kg/m2 [facility] 04-06-2022 12:00-0400 Body temperature 98 [degF] [facility] Other 04-06-2022 12:00-0400 Body weight 126.28 kg G[facility] Tam[facility] Other [facility] Other 04-06-2022 12:00-0400 Diastolic blood pressure 70 mm[Hg] [facility] Other [facility] Other 04-06-2022 12:00-0400 Respiratory rate 20 /min [facility] Other [facility] Other 04-06-2022 12:00-0400 SaO2% (BldA) [Mass fraction] 93 % [facility] Other [facility] Other 04-06-2022 12:00-0400 Systolic blood pressure 122 mm[Hg] [facility] Other [facility] Other 12-27-2021 16:20-0500 Body height 165.1 cm [facility] Tam[facility] Other [facility] Other 12-27-2021 16:20-0500 Body mass index (BMI) [Ratio] 46.29 kg/m2 [facility] 12-27-2021 16:20-0500 Body temperature 96.2 [degF] [facility] Other [facility] Other 12-27-2021 16:20-0500 Body weight 126.19 kg Gia Tammy Other [facility] Other 12-27-2021 16:20-0500 Diastolic blood pressure 78 mm[Hg] [facility] Tam[facility] Other [facility] Other 12-27-2021 16:20-0500 Respiratory rate 20 /min [facility] Other [facility] Other 12-27-2021 16:20-0500 SaO2% (BldA) [Mass fraction] 95 % [facility] Other [facility] Other 12-27-2021 16:20-0500 Systolic blood pressure 161 mm[Hg] [facility] Other [facility] Other Encounters Encounter Date Encounter Type Care Provider Facility Start: 10-15-2023 End: 10-16-2023 ambulatory Christian Curtis MD Facility:[facility] Start: 08-23-2023 End: 08-23-2023 ambulatory [facility] Other [facility] Start: 08-23-2023 Office outpatient visit 25 minutes Gia Tam[facility] [place] Start: 04-26-[address] FERNIE HACKETT Fac ility:[facility] Start: 01-25-2023 End: 01-26-[address] LUISA STERN . [facility] Other Start: 01-25-2023 Office outpatient visit 25 minutes Gia Tammy [facility] [place] Start: 01-15-2023 End: 01-16-2023 ambulatory GIA TAMMY Facility:[facility] Start: 11-09-2022 End: 11-10-[address] FERNIE HACKETT Facility:[facility] Start: 10-26-2022 End: 10-27-[address] LUISA STERN . Facility:[facility] Start: 08-02-2022 End: 08-03-[address] LUISA STERN . Facility:[facility] Start: 07-20-2022 End: 07-20-2022 ambulatory Gia Tammy Other [facility] Other Start: 07-20-2022 Office outpatient visit 25 minutes Gia Tammy [facility] Start: 07-12-2022 End: 07-13-2022 ambulatory GIA TAMMY Facility:[facility] Start: 05-03-2022 End: 05-03-2022 ambulatory Gia Tammy Other [facility] Start: 05-03-2022 Telephone encounter Gia Tammy [facility] Start: 04-25-2022 End: 04-26-[address] LUISA STERN . Facility: Start: 04-06-2022 End: 04-06-2022 ambulatory Gia Tammy Other [facility] Start: 04-06-2022 Office outpatient visit 25 minutes Gia Tammy [facility] [place] Start: 03-30-2022 End: 03-31-2022 ambulatory GIA TAMMY Facility: Start: 03-30-2022 End: 03-31-[address] LUISA STERN . Facility: Start: 12-27-2021 End: 12-27-2021 ambulatory Gia Tammy Other [facility] Start: 12-27-2021 Office outpatient visit 15 minutes Gia Tammy [facility] Start: 11-28-2021 End: 11-28-2021 ambulatory Gia Tammy Other [facility] Other Start: 11-28-2021 Telephone encounter Gia Tammy [facility] Start: 11-24-2021 End: 11-24-2021 ambulatory Gia Tammy Other [facility] Other Start: 11-24-2021 Telephone encounter Gia [facility] Start: 03-30-2021 End: 03-31-2021 ambulatory MOE PARHAM Facility:[facility] Payers Date Payer Category Payer Medicare 2022 Unknown 1957 Medicare [id number] 1957 Unknown [id number] 1940 Unknown [id number] 2.16.8 [id number] 1940 Unknown [id number] 2.16.84 [id number] 1940 Unknown [id number] 2.16.84 [id number] 1940 Unknown [id number] 2.16.84 0.1.500179.3.579.2.593 1940 Unknown [id number] 2.16.84 0.1.066432.3.579.2.593 1940 Unknown [id number] 2.16.84 0.1.893504.3.579.2.593 1940 Unknown [id number] 2.16.84 0.1.883654.3.579.2.593 1940 Unknown [id number] 2.16.84 0.1.901850.3.579.2.593 1940 Unknown [id number] 2.16.84 0.1.091657.3.579.2.593 1942 Unknown [id number] 2.16.84 0.1.147683.3.579.2.593 1940 Unknown [id number] 2.16.84 0.1.733917.3.579.2.593 1940 Unknown [id number] 2.16.84 0.1.146031.3.579.2.593 1940 Unknown [id number] 2.16. [id number] Social History Date Type Detail Facility Unknown if ever smoked [facility] Other Sex Assigned At Sex Assigned At Bir th [facility] Other Clinical Notes 12-27-2021 to 08-23-2023 Note [...] magnesium diet and provide information about it. [facility] 03-16-2023 NoteCONSULTATION CONSULTATION DATE: 01/25/2023 HISTORY: [...] and to talk with Dr. Conley, their healthcare insurance sales agent, to confirm that this was acceptable, considering her stage 3 kidney disease. Other than that, we will see her in three months' time at the clinic, unless otherwise indicated. Patient and agree with this plan.[facility] 01-25-2023 Evaluation note* Encounter Date Diagnosis [...] magnesium diet and provide information about it. [facility] 12-15-2022 NoteCONSULTATION CONSULTATION DATE: 10/26/2022 HISTORY OF PRESENT ILLNESS: This is a very pleasant, 82-year-old female who presents with her for a three month follow up. Today, she reports 0/10 pain and is overall doing well. At her last appointment on 08/02/2022, we had switched her medications from Tualatin to tramadol extended release 100 mg per day, which she feels is helping very much. It is lasting for her better than the Tualatin. She is also on Lyrica 75 mg [...] indicated, and patient agrees with this plan.[id number] NoteCONSULTATION CONSULTATION DATE: 08/02/2022 HISTORY OF PRESENT ILLNESS: This is a pleasant, 81-year-old female, accompanied by her , returning to the clinic for a three month follow up for chronic lower back pain. She was last seen on 04/25/[address] Stern which, at that time, her Tualatin was decreased to 5/325 daily p.r.n., which [...] increased to 100 mg extended release daily. Tualatin will be discontinued. Education was given regarding use of the menthol heat rub with Voltaren gel and heat application to her back. Vitamin and nutrition importance was discussed. Patient will be seen back in the clinic in three months' time, unless otherwise indicated, and patient agrees to this.[id number] Evaluation note* Encounter Date Diagnosis Assessment Notes [...] any recent gout flare. She takes allopurinol. [facility] 06-22-2022 Evaluation note* Encounter Date Diagnosis Assessment Notes Treatment Notes Treatment Clinical Notes Apr, Hypertensive chronic kidney disease with stage 1 through stage 4 chronic kidney disease, or unspecified chronic kidney disease (ICD-10 - I12.9) [facility] 06-14-2022 NoteCONSULTATION CONSULTATION DATE: 04/25/2022 CHIEF [...] 4/10. She is managing the pain with Tualatin 5/325 one table daily and tramadol 50 [...] the patient's pain medication which would be Tualatin 5/325 one tablet daily and tramadol 50 [...] she need us. CC: Fernie Hackett D.O. [facility] Signed and Approved by: DR LUISA STERN . 05/02/2022 08:52:00[facility]05-26-2022 Evaluation note* Encounter Date Diagnosis Assessment [...] any recent gout flare. She takes allopurinol. [facility] 05-19-2022 NoteCONSULTATION CONSULTATION DATE: 03/30/2022 This [...] She was given a 14-day prescription of Tualatin 5/325 b.i.d. to help with the acuity of her post-procedure pain. Today she reports the Tualatin is gone and she is back on [...] and rather we will maintain her on Tualatin 5/325 b.i.d. which proved to be the [...] and agree and would like to proceed. [facility] Signed and Approved by: JONNY CAMPUZANO . 04/03/2022 15:07:00[facility]02-15-2022 Evaluation note* Encounter Date Diagnosis Assessment [...] any recent gout flare. She takes allopurinol. [facility] noteNo InformationN[facility] Other History general Narrative - Reported* Type [...] IN LOWER BACK Hospitalization History see above [facility] Other History general Narrative - Reported* Type [...] HEART CATH 03/30/2021 Hospitalization History see above [facility] Other Summary Purpose Family History No Family History Records FoundNo Family History Records FoundNo Family History Records FoundNo Family History Records Found Advance Directives No Advanced Directives Records FoundNo Advanced Directives Records FoundNo Advanced Directives Records FoundNo Advanced Directives Records Found Additional Source Comments INFORMATION SOURCE (unrecogn ized section and content) DATE CREATED AUTHOR 04/06/2021 [facility] DATE CREATED AUTHOR AUTHOR'S ORGANIZ ATION 05/12/2022 [facility] DATE CREATED AUTHOR AUTHOR'S ORGANIZ ATION 03/15/2023 [facility] DATE CREATED AUTHOR AUTHOR'S ORGANIZ ATION 10/26/2023 [facility] REASON FOR VISIT (unrecogniz ed section and [...] BE BASED ON THE PRIMARY CLINICAL RECORDS. [facility] [employer], [facility]. provides no warranty or guarantee of the accuracy or completeness of information in this document.
[2023-11-08 15:07] VITALS: BP 156/84; PULSE 70; RESP 16; TEMP 36.9; O2SAT 98; BMI 44.0
[2023-11-08 15:39] LABS: Basophils Percent Auto 0.4 % (0.2-2.0); Eosinophils Absolute Auto 0.1 10^3/uL (0.0-0.7); Eosinophils Percent Auto 1.9 % (0.9-7.0); Immature Granulocytes Abs Auto 0.02 10^3/uL (0.00-0.03); Immature Granulocytes Pct Auto 0.3 % (0.0-0.5); Lymphocytes Absolute Auto 1.5 10^3/uL (1.2-3.8); Lymphocytes Percent Auto 22.5 % (20.5-60.0); Mean Corpuscular HGB Conc 31.4 g/dL (29.9-35.2); Mean Corpuscular Volume 95.4 fL (81.0-99.0); Mean Platelet Volume 10.8 fL (9.5-13.5); Monocytes Absolute Auto 0.7 10^3/uL (0.3-0.8); Monocytes Percent Auto 9.7 % (1.7-12.0); Neutrophils Absolute Auto 4.5 10^3/uL (1.4-6.5); Neutrophils Percent Auto 65.2 % (43.0-75.0); Platelet Count 176 10^3/uL (150-450); Red Blood Count 3.67 10^6/uL (4.20-5.40); Red Cell Distribution Width 14.8 % (11.0-15.0); White Blood Count 6.8 10^3/uL (4.0-11.0)
[2023-11-08 15:53] LABS: Alanine Aminotransferase 37 U/L (14-59); Albumin Globulin Ratio 0.7; Albumin Level 2.7 g/dL (3.4-5.0); Alkaline Phosphatase 132 U/L (46-116); Anion Gap 12.4; Aspartate Amino Transferase 14 U/L (15-37); BUN Creatinine Ratio 26.7; Bilirubin Total 0.4 mg/dL (0.2-1.0); Calcium 8.8 mg/dL (8.5-10.1); Carbon Dioxide 29.3 mmol/L (21.0-32.0); Chloride 108 mmol/L (98-107); Estimated GFR (African America 40 (>=60); Estimated GFR (Non-African Ame 33 (>=60); Globulin 3.8 g/dL; Glucose 96 mg/dL (74-106); Magnesium 1.1 mg/dL (1.8-2.4); Potassium 3.7 mmol/L (3.5-5.1); Sodium 146 mmol/L (136-145); Total Protein 6.5 g/dL (6.4-8.2)
[2023-11-08] MEDS: MAGNESIUM SULFATE IN WATER 2 GM/50 ML PREMIX IV ×2 (17:18→18:18)
--- NOTE | 2023-11-08 17:48 | ED_ITS ---
HPI - Recheck/Abnormal Lab/Rx General Chief Complaint: Recheck/Abnormal Lab/Rx Stated Complaint: ABNORMAL LAB VALUES Time Seen by Provider: 11/08/23 15:21 Source: patient and family Mode of arrival: walk-in History of Present Illness HPI narrative: this patient's here with her to receive treatment for a low magnesium level. She had some outpatient lab about six days ago. She is supposed to be taking oral magnesium supplementation for her chronic loculate disorder, but because the oral pills cause severe diarrhea she won't take it. Apparently her gunner's mate m now suggests that she'll come into a infusion center and get standa rd protocol magnesium sulfate intravenous therapy depending on her laboratory tests. She's not had vomiting or diarrhea. We did repeat check her laboratory tests here in fact her magnesium is low at 1.1 all over it's been low over the last several months. Related Data Home Medications Medication Instructions Recorded Confirmed GLUCOSAMINE DAILY 04/26/23 PRO AIR 04/26/23 RAMIPRIDE 10 mg DAILY 04/26/23 allopurinol 200 mg tablet 200 mg PO DAILY 04/26/23 10/15/23 aspirin 81 mg tablet,delayed 81 mg PO DAILY 04/26/23 10/15/23 release atorvastatin 80 mg tablet 80 mg PO DAILY 04/26/23 10/15/23 baclofen 10 mg tablet 10 mg PO DAILY 04/26/23 10/15/23 fluticasone furoate 100 1 inh inhalation DAILY 04/26/23 10/15/23 mcg-vilanterol 25 mcg/dose inhalation powder (Breo Ellipta) furosemide 80 mg tablet 80 mg PO BID 04/26/23 10/15/23 furosemide 80 mg tablet (Lasix) 80 mg PO BID 04/26/23 10/15/23 insulin glargine 100 unit/mL 50 unit subcut DAILY 04/26/23 10/15/23 subcutaneous solution (Lantus U-100 Insulin) insulin lispro 100 unit/mL 6 unit subcut TID 04/26/23 10/15/23 subcutaneous pen metoclopramide HCl 10 mg tablet 10 mg PO BID 04/26/23 10/15/23 omeprazole 20 mg tablet,delayed 20 mg PO BID 04/26/23 10/15/23 release pregabalin 50 mg capsule (Lyrica) 50 mg PO BID 04/26/23 10/15/23 theophylline 400 mg 400 mg PO DAILY 04/26/23 10/15/23 tablet,extended release 24 hr Previous Rx's Medication Instructions Recorded tramadol 100 mg capsule 100 mg PO DAILY PRN pain #30 caps 09/13/23 24h,extended release(25-75) Allergies Allergy/AdvReac Type Severity Reaction Status Date / Time adhesive tape Allergy Unknown Verified 10/15/23 09:55 povidone-iodine Allergy Unknown Verified 10/15/23 09:55 [From Betadine] red dye Allergy Unknown Verified 10/15/23 09:55 Sulfa (Sulfonamide Allergy Unknown Verified 10/15/23 09:55 Antibiotics) tetracycline Allergy Unknown Verified 10/15/23 09:55 Exam Narrative Exam Narrative: awake alert oriented ?3 very pleasant here with her . Skin integument are normal with no diaphoresis clamminess or cyanosis. Airway is intact with no cough congestion or shortness of breath. Pulses are strong to the extremities. She does have stockings on but she appears to have some pitting edema both lower extremities. Constitutional Vital Signs, click to edit/add: Last Vital Signs Temp 98.4 F 11/08/23 15:07 Pulse 70 11/08/23 15:07 Resp 16 11/08/23 15:07 BP 156/84 H 11/08/23 15:07 Pulse Ox 98 11/08/23 15:07 O2 Del Method Room Air 11/08/23 15:07 Course Vital Signs Vital signs: Vital Signs Temperature 98.4 F 11/08/23 15:07 Pulse Rate 70 11/08/23 15:07 Respiratory Rate 16 11/08/23 15:07 Blood Pressure 156/84 H 11/08/23 15:07 Pulse Oximetry 98 11/08/23 15:07 Oxygen Delivery Method Room Air 11/08/23 15:07 Temperature 98.4 F 11/08/23 15:07 Pulse Rate 70 11/08/23 15:07 Respiratory Rate 16 11/08/23 15:07 Blood Pressure 156/84 H 11/08/23 15:07 Pulse Oximetry 98 11/08/23 15:07 Oxygen Delivery Method Room Air 11/08/23 15:07 MDM - Recheck/Abnormal Lab/Rx MDM Narrative Medical decision making narrative: patient lab is intact low magnesium 1.1. We will start her infusion. She had a follow-up with her primary care doctor Lab Data Labs: Lab Results 11/08/23 Range/Units 15:30 WBC 6.8 (4.0-11.0) 10^3/uL RBC 3.67 L (4.20-5.40) 10^6/uL Hgb 11.0 L (12.0-16.0) g/dL Hct 35.0 L (36.0-48.0) % MCV 95.4 (81.0-99.0) fL MCH 30.0 (26.7-34.0) pg MCHC 31.4 (29.9-35.2) g/dL RDW 14.8 (11.0-15.0) % Plt Count 176 (150-450) 10^3/uL MPV 10.8 (9.5-13.5) fL Neut % (Auto) 65.2 (43.0-75.0) % Lymph % (Auto) 22.5 (20.5-60.0) % [place] % (Auto) 9.7 (1.7-12.0) % Eos % (Auto) 1.9 (0.9-7.0) % Baso % (Auto) 0.4 (0.2-2.0) % Neut # (Auto) 4.5 (1.4-6.5) 10^3/uL Lymph # (Auto) 1.5 (1.2-3.8) 10^3/uL [place] # (Auto) 0.7 (0.3-0.8) 10^3/uL Eos # (Auto) 0.1 (0.0-0.7) 10^3/uL Baso # (Auto) 0.0 (0.0-0.1) 10^3/uL Abs Immat Gran (auto) 0.02 (0.00-0.03) 10^3/uL Imm/Tot Granulo (auto) 0.3 (0.0-0.5) % Sodium 146 H (136-145) mmol/L Potassium 3.7 (3.5-5.1) mmol/L Chloride 108 H (98-107) mmol/L Carbon Dioxide 29.3 (21.0-32.0) mmol/L Anion Gap 12.4 BUN 40.0 H (7.0-18.0) mg/dL Creatinine 1.50 H (0.55-1.02) mg/dL Est GFR ( Amer) 40 L (>=60) Est GFR (Non-Af Amer) 33 L (>=60) BUN/Creatinine Ratio 26.7 Glucose 96 (74-106) mg/dL Calcium 8.8 (8.5-10.1) mg/dL Magnesium 1.1 L (1.8-2.4) mg/dL Total Bilirubin 0.4 (0.2-1.0) mg/dL AST 14 L (15-37) U/L ALT 37 (14-59) U/L Alkaline Phosphatase 132 H (46-116) U/L Total Protein 6.5 (6.4-8.2) g/dL Albumin 2.7 L (3.4-5.0) g/dL Globulin 3.8 g/dL Albumin/Globulin Ratio 0.7 Discharge Plan Discharge Chief Complaint: Recheck/Abnormal Lab/Rx Time of Disposition Decision: 17:52 Prescriptions / Home Meds: No Action allopurinol 200 mg tablet 200 mg PO DAILY aspirin 81 mg tablet,delayed release (DR/EC) 81 mg PO DAILY atorvastatin 80 mg tablet 80 mg PO DAILY baclofen 10 mg tablet 10 mg PO DAILY fluticasone furoate-vilanterol [Breo Ellipta] 100-25 mcg/dose blister with device 1 inh inhalation DAILY furosemide 80 mg tablet 80 mg PO BID GLUCOSAMINE DAILY insulin lispro 100 unit/mL insulin pen 6 unit subcut TID insulin glargine [Lantus U-100 Insulin] 100 unit/mL solution 50 unit subcut DAILY furosemide [Lasix] 80 mg tablet 80 mg PO BID pregabalin [Lyrica] 50 mg capsule 50 mg PO BID metoclopramide HCl 10 mg tablet 10 mg PO BID omeprazole 20 mg tablet,delayed release (DR/EC) 20 mg PO BID PRO AIR RAMIPRIDE 10 mg DAILY theophylline 400 mg tablet extended release 24 hr 400 mg PO DAILY tramadol 100 mg capsule,ER biphase 24 hr 25-75 100 mg PO DAILY PRN (Reason: pain) Qty: 30 0RF
[2023-11-08 19:20] VITALS: BP 135/85; PULSE 78; RESP 15; O2SAT 97
--- NOTE | 2023-11-19 14:41 | ED.RECABL1 ---
HPI - Recheck/Abnormal Lab/Rx General Chief Complaint: Recheck/Abnormal Lab/Rx Stated Complaint: ABNORMAL LAB VALUES Time Seen by Provider: 11/08/23 15:21 Source: patient and family Mode of arrival: walk-in Related Data Home Medications Medication Instructions Recorded Confirmed GLUCOSAMINE DAILY 04/26/23 PRO AIR 04/26/23 RAMIPRIDE 10 mg DAILY 04/26/23 allopurinol 200 mg tablet 200 mg PO DAILY 04/26/23 10/15/23 aspirin 81 mg tablet,delayed 81 mg PO DAILY 04/26/23 10/15/23 release atorvastatin 80 mg tablet 80 mg PO DAILY 04/26/23 10/15/23 baclofen 10 mg tablet 10 mg PO DAILY 04/26/23 10/15/23 fluticasone furoate 100 1 inh inhalation DAILY 04/26/23 10/15/23 mcg-vilanterol 25 mcg/dose inhalation powder (Breo Ellipta) furosemide 80 mg tablet 80 mg PO BID 04/26/23 10/15/23 furosemide 80 mg tablet (Lasix) 80 mg PO BID 04/26/23 10/15/23 insulin glargine 100 unit/mL 50 unit subcut DAILY 04/26/23 10/15/23 subcutaneous solution (Lantus U-100 Insulin) insulin lispro 100 unit/mL 6 unit subcut TID 04/26/23 10/15/23 subcutaneous pen metoclopramide HCl 10 mg tablet 10 mg PO BID 04/26/23 10/15/23 omeprazole 20 mg tablet,delayed 20 mg PO BID 04/26/23 10/15/23 release pregabalin 50 mg capsule (Lyrica) 50 mg PO BID 04/26/23 10/15/23 theophylline 400 mg 400 mg PO DAILY 04/26/23 10/15/23 tablet,extended release 24 hr Previous Rx's Medication Instructions Recorded tramadol 100 mg capsule 100 mg PO DAILY PRN pain #30 caps 09/13/23 24h,extended release(25-75) tramadol 100 mg capsule 100 mg PO DAILY PRN pain #30 caps 11/15/23 24h,extended release(25-75) Allergies Allergy/AdvReac Type Severity Reaction Status Date / Time adhesive tape Allergy Unknown Verified 10/15/23 09:55 povidone-iodine Allergy Unknown Verified 10/15/23 09:55 [From Betadine] red dye Allergy Unknown Verified 10/15/23 09:55 Sulfa (Sulfonamide Allergy Unknown Verified 10/15/23 09:55 Antibiotics) tetracycline Allergy Unknown Verified 10/15/23 09:55 Exam Constitutional Vital Signs, click to edit/add: Last Vital Signs Temp 98.4 F 11/08/23 15:07 Pulse 78 11/08/23 19:20 Resp 15 11/08/23 19:20 BP 135/85 11/08/23 19:20 Pulse Ox 97 11/08/23 19:20 O2 Del Method Room Air 11/08/23 19:20 Course Vital Signs Vital signs: Vital Signs Temperature 98.4 F 11/08/23 15:07 Pulse Rate 70 11/08/23 15:07 Respiratory Rate 16 11/08/23 15:07 Blood Pressure 156/84 H 11/08/23 15:07 Pulse Oximetry 98 11/08/23 15:07 Oxygen Delivery Method Room Air 11/08/23 15:07 Temperature 98.4 F 11/08/23 15:07 Pulse Rate 78 11/08/23 19:20 Respiratory Rate 15 11/08/23 19:20 Blood Pressure 135/85 11/08/23 19:20 Pulse Oximetry 97 11/08/23 19:20 Oxygen Delivery Method Room Air 11/08/23 19:20 MDM - Recheck/Abnormal Lab/Rx Lab Data Labs: Lab Results 11/08/23 Range/Units 15:30 WBC 6.8 (4.0-11.0) 10^3/uL RBC 3.67 L (4.20-5.40) 10^6/uL Hgb 11.0 L (12.0-16.0) g/dL Hct 35.0 L (36.0-48.0) % MCV 95.4 (81.0-99.0) fL MCH 30.0 (26.7-34.0) pg MCHC 31.4 (29.9-35.2) g/dL RDW 14.8 (11.0-15.0) % Plt Count 176 (150-450) 10^3/uL MPV 10.8 (9.5-13.5) fL Neut % (Auto) 65.2 (43.0-75.0) % Lymph % (Auto) 22.5 (20.5-60.0) % [place] % (Auto) 9.7 (1.7-12.0) % Eos % (Auto) 1.9 (0.9-7.0) % Baso % (Auto) 0.4 (0.2-2.0) % Neut # (Auto) 4.5 (1.4-6.5) 10^3/uL Lymph # (Auto) 1.5 (1.2-3.8) 10^3/uL [place] # (Auto) 0.7 (0.3-0.8) 10^3/uL Eos # (Auto) 0.1 (0.0-0.7) 10^3/uL Baso # (Auto) 0.0 (0.0-0.1) 10^3/uL Abs Immat Gran (auto) 0.02 (0.00-0.03) 10^3/uL Imm/Tot Granulo (auto) 0.3 (0.0-0.5) % Sodium 146 H (136-145) mmol/L Potassium 3.7 (3.5-5.1) mmol/L Chloride 108 H (98-107) mmol/L Carbon Dioxide 29.3 (21.0-32.0) mmol/L Anion Gap 12.4 BUN 40.0 H (7.0-18.0) mg/dL Creatinine 1.50 H (0.55-1.02) mg/dL Est GFR ( Amer) 40 L (>=60) Est GFR (Non-Af Amer) 33 L (>=60) BUN/Creatinine Ratio 26.7 Glucose 96 (74-106) mg/dL Calcium 8.8 (8.5-10.1) mg/dL Magnesium 1.1 L (1.8-2.4) mg/dL Total Bilirubin 0.4 (0.2-1.0) mg/dL AST 14 L (15-37) U/L ALT 37 (14-59) U/L Alkaline Phosphatase 132 H (46-116) U/L Total Protein 6.5 (6.4-8.2) g/dL Albumin 2.7 L (3.4-5.0) g/dL Globulin 3.8 g/dL Albumin/Globulin Ratio 0.7 Discharge Plan Discharge Chief Complaint: Recheck/Abnormal Lab/Rx Clinical Impression: Complication of electrolyte disorder Patient Disposition: Home, Self-Care Time of Disposition Decision: 17:52 Condition: Good Mode of Transportation: Private Vehicle Prescriptions / Home Meds: No Action allopurinol 200 mg tablet 200 mg PO DAILY aspirin 81 mg tablet,delayed release (DR/EC) 81 mg PO DAILY atorvastatin 80 mg tablet 80 mg PO DAILY baclofen 10 mg tablet 10 mg PO DAILY fluticasone furoate-vilanterol [Breo Ellipta] 100-25 mcg/dose blister with device 1 inh inhalation DAILY furosemide 80 mg tablet 80 mg PO BID GLUCOSAMINE DAILY insulin lispro 100 unit/mL insulin pen 6 unit subcut TID insulin glargine [Lantus U-100 Insulin] 100 unit/mL solution 50 unit subcut DAILY furosemide [Lasix] 80 mg tablet 80 mg PO BID pregabalin [Lyrica] 50 mg capsule 50 mg PO BID metoclopramide HCl 10 mg tablet 10 mg PO BID omeprazole 20 mg tablet,delayed release (DR/EC) 20 mg PO BID PRO AIR RAMIPRIDE 10 mg DAILY theophylline 400 mg tablet extended release 24 hr 400 mg PO DAILY tramadol 100 mg capsule,ER biphase 24 hr 25-75 100 mg PO DAILY PRN (Reason: pain) Qty: 30 0RF tramadol 100 mg capsule,ER biphase 24 hr 25-75 100 mg PO DAILY PRN (Reason: pain) Qty: 30 0RF Rx Instructions: DO NOT FILL TILL 11/20/22 MUST LAST 30 DAYS PATIENT HAD TRAMADOL 50MG TABS TURNED IN AND DESTROYED BY PAIN MANAGEMENT OFFFICE STAFF Additional Instructions: follow-up with your nephrology doctor to monitor your outpatient lab testing for magnesium and other lab values Stand Alone Forms: Portal Instructions Referrals: SHANDA CLARK [Primary Care Provider] - 1 week Discharge Date/Time: 11/08/23 19:22
== END 2023-11-08 19:22 | disposition home or self-care (01) ==
PROVIDERS: Emergency Provider Emergency Medicine Emergency Medical Services; PCP Family Medicine
DX: E87.8 Other disorders of electrolyte and fluid balance, not elsewhere classified (principal); Z79.4 Long term (current) use of insulin; Z79.899 Other long term (current) drug therapy; Z79.82 Long term (current) use of aspirin
CPT/HCPCS: 36415; 80053; 83735; 85025; 96365; 96366; 99284

== ENCOUNTER 2024-01-03 13:40 | Outpatient (OUT) | payer MEDICARE, SELFPAY ==
--- NOTE | 2024-01-03 14:04 | PM.CN ---
Consult Note: HPI Data of Consult Patient: known to practice within the last 3 years Requesting Physician: Pao Good NP Primary Care Provider: SHANDA CLARK Consult Narrative Reason for consult: f/u Narrative: Adore Wolff an 82 year old female presents for evaluation and management of chronic low back pain. Today pain 01/19. Patient reporting 80% ongoing relief of symptoms as a result of recent bilateral L4-5 TFESI. Patients CKD being managed, recent GFR >30. Patient finds benefit from current medication regimen, denies side effects. Patient has been receiving magnesium infusions weekly and has noticed significant fatigue and decreased quality of life. cc:: CC: Pao Good NP Review of Systems ROS Status of ROS 10 or more systems reviewed and unremarkable except as noted in history and below Musculoskeletal Reports: back pain and extremity swelling Meds Home Medications and Allergies Home Medications Medication Instructions Recorded Confirmed Type GLUCOSAMINE DAILY 04/26/23 History PRO AIR 04/26/23 History RAMIPRIDE 10 mg DAILY 04/26/23 History allopurinol 200 mg tablet 200 mg PO DAILY 04/26/23 10/15/23 History aspirin 81 mg tablet,delayed 81 mg PO DAILY 04/26/23 10/15/23 History release atorvastatin 80 mg tablet 80 mg PO DAILY 04/26/23 10/15/23 History baclofen 10 mg tablet 10 mg PO DAILY 04/26/23 10/15/23 History fluticasone furoate 100 1 inh inhalation DAILY 04/26/23 10/15/23 History mcg-vilanterol 25 mcg/dose inhalation powder (Breo Ellipta) furosemide 80 mg tablet 80 mg PO BID 04/26/23 10/15/23 History furosemide 80 mg tablet (Lasix) 80 mg PO BID 04/26/23 10/15/23 History insulin glargine 100 unit/mL 50 unit subcut DAILY 04/26/23 10/15/23 History subcutaneous solution (Lantus U-100 Insulin) insulin lispro 100 unit/mL 6 unit subcut TID 04/26/23 10/15/23 History subcutaneous pen metoclopramide HCl 10 mg tablet 10 mg PO BID 04/26/23 10/15/23 History omeprazole 20 mg tablet,delayed 20 mg PO BID 04/26/23 10/15/23 History release pregabalin 50 mg capsule (Lyrica) 50 mg PO BID 04/26/23 10/15/23 History theophylline 400 mg 400 mg PO DAILY 04/26/23 10/15/23 History tablet,extended release 24 hr tramadol 100 mg capsule 100 mg PO DAILY PRN pain #30 caps 09/13/23 10/15/23 Rx 24h,extended release(25-75) tramadol 100 mg capsule 100 mg PO DAILY PRN pain #30 caps 11/15/23 Rx 24h,extended release(25-75) pregabalin 75 mg capsule (Lyrica) 75 mg PO DAILY #30 caps 12/19/23 Rx Allergies Allergy/AdvReac Type Severity Reaction Status Date / Time adhesive tape Allergy Unknown Verified 10/15/23 09:55 povidone-iodine Allergy Unknown Verified 10/15/23 09:55 [From Betadine] red dye Allergy Unknown Verified 10/15/23 09:55 Sulfa (Sulfonamide Allergy Unknown Verified 10/15/23 09:55 Antibiotics) tetracycline Allergy Unknown Verified 10/15/23 09:55 Exam Constitutional Documenting provider has reviewed patient's vital signs: yes Common normals: no apparent distress, oriented x3, healthy appearing, alert and well nourished General appearance: cooperative [facility] Common normals: normocephalic, hearing grossly normal bilaterally and moist oral mucous membranes Head and scalp: normocephalic Eye Common normals: PERRL Pupil: PERRL Neck & C-Spine Common normals: full ROM General: normal visual inspection Chest Common normals: inspection of chest normal Respiratory Common normals: normal respiratory effort, no retractions and no use of accessory muscles Back & Pelvis Lumbar spine/lower back: ROM limited, pain with ROM and straight leg raise negative bilaterally Extremity General: edema Right lower extremity: knee joint Left lower extremity: knee joint Other: enlarged diameter bilateral knees. Neuro Common normals: oriented x3, CN's II-XII intact bilaterally, moves all extremities, no focal motor deficits, no sensory deficits noted and deep tendon reflexes 2+ bilaterally Sensorium/orientation: alert Gait (neuro): antalgic and assistive device used walker Motor exam: strength 5/5 throughout and no movement abnormalities noted Psych Common normals: mental status grossly normal, thought process normal, cooperative, affect normal, speech normal and activity/motor behavior normal Speech: normal speech Thought process: normal thought process Results Additional Findings Additional findings: I have checked an [place] report on this patient today and there are no aberrancies noted in the prescribing history.?? A drug screen was completed and reviewed within the last year, and if there has not been a drug screen completed we ordered one today to monitor higher risk, state monitored pain medication use. As part of providing excellent, safe, comprehensive care, the following was completed at our patient's visit: 1. A medication reconciliation and review to ensure accurate knowledge of current/active medications, including asking our patients to inform us about any [id number] medications or herbal remedies/nutritional supplements/alternative remedies. 2. A review to specifically ensure our patients have had annual screening for: elevated body mass index (BMI), tobacco use, screening for depression, and screening for unhealthy alcohol use. When screening is concerning, patients are provided with education and the specific recommendation to discuss the concerning health issue and treatment options with their primary care provider. Assessment and Plan Assessment and Plan (1) Lumbar radiculopathy, chronic: (2) Chronic prescription opiate use: (3) Bilateral knee pain: (4) Knee osteoarthritis: (5) Muscle spasm: (6) Lumbar spondylosis: (7) Chronic kidney disease: Assessment and Plan: GFR less than 30 Plan continue tramadol 100mg ER daily caution baclofen 10mg HS continue lyrica 50mg daily (max dose per medical assistant) continue f/u with nephrology and PCP, concerned for decline f/u 2-3 months, consider repeat DYLAN. Patients made remarks about seeing a INSTALLER HELPER, offered a visit with the doctor in the future. Patient specified that she feels her pain is well controlled and she has been pleased with her care.
== END 2024-01-03 13:41 | disposition home or self-care (01) ==
LOC: PM 13:41
PROVIDERS: PCP Family Medicine; Visit Provider Nurse Practitioner
DX: M54.16 Radiculopathy, lumbar region (principal); Z79.891 Long term (current) use of opiate analgesic; M25.561 Pain in right knee; M25.562 Pain in left knee; M17.9 Osteoarthritis of knee, unspecified; M62.838 Other muscle spasm; M47.816 Spondylosis without myelopathy or radiculopathy, lumbar region; N18.9 Chronic kidney disease, unspecified
CPT/HCPCS: G0463

== ENCOUNTER 2024-01-21 10:19 | Day surgery (SDC) | payer MEDICARE, SELFPAY ==
--- OUTSIDE RECORDS SUMMARY | 2024-01-21 10:22 | XMS_ITS | CCD ---
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 Name Role Phone ROBERTO PARHAMAB A Attending Unavailable MOE PARHAM Admitting Unavailable ALEISHALOFERNIE NOGUERA Referring Unavailable FURLONG, FERNIE Primary Care Unavailable Tammy, Gia Unavailable SETRN ., DR LUISA Page Attending Unavailable STERN [...] ., NARJAZMIN Attending Marianela vailable LAKSHMIPATHY ., NARSHAYNAATH Admitting Marianela vailable STERN ., DR LUISA [...] Unavailable Kirsten RAND, Christian Rodríguez Attending Unavailable Furlong DOFernie Primary Care Provider MOE PARHAM Attending Unavailable DARELL SYLVESTER Attending Unavailable Furlong, DO Enciso Primary Care Provider MD Gia Conley Attending Provider [phone] Tammy, Gia Attending Unavailable Tammy, Gia Admitting Unavailable Furlong, Fernie Primary Care Unavailable FURLONG, FERNIE Ricketts Attending Unavailable FURLONGFERNIE Referring Unavailable FURLONG, FERNIE Ricketts Primary Care Unavailable FURLONG, FERNIE Ricketts Referring Unavailable FURLONG, FERNIE Ricketts Primary Care Unavailable FURLONG, FERNIE Ricketts Referring Unavailable FURLONG, FERNIE G Primary Care Unavailable TAMMY, GIA Referring Unavailable FURLONG, FERNIE Ricketts Primary Care Unavailable FURLONG, FERNIE Ricketts Referring Unavailable FURLONG, FERNIE Ricketts Primary Care Unavailable FURLONG, FERNIE Ricketts Referring Unavailable FURLONG, FERNIE Ricketts Primary Care Unavailable FURLONG, FERNIE Ricketts Referring Unavailable FURLONG, FERNIE Ricketts Primary Care Unavailable FURLONG, FERNIE Ricketts Referring Unavailable FURLONG, FERNIE Ricketts Primary Care Unavailable TAMMY, GIA Referring Unavailable FURLONG, FERNIE Ricketts Primary Care Unavailable FURLONG, FERNIE Ricketts Referring Unavailable FURLONG, FERNIE G Primary Care Unavailable TAMMY, GIA Referring Unavailable FURLONG, FERNIE G Primary Care Unavailable FURLONG, FERNIE G Referring Unavailable FURLONG, FERNIE G Primary Care Unavailable TAMMY, GIA Referring Unavailable FURLONG, FERNIE Ricketts Primary Care Unavailable FURLONG, FERNIE Ricketts Referring Unavailable FURLONG, FERNIE G Primary Care Unavailable TAMMY, GIA Referring Unavailable FURLONG, FERNIE G Primary Care Unavailable FURLONG, FERNIE G Referring Unavailable FURLONG, FERNIE G Primary Care Unavailable TAMMY, GIA Attending Unavailable TAMMY, GIA Referring Unavailable FURLONG, FERNIE G Primary Care Unavailable FURLONG, FERNIE G Referring Unavailable FURLONG, FERNIE G Primary Care Unavailable TAMMY, GIA Referring Unavailable FURLONG, FERNIE G Primary Care Unavailable Allergies Allergy Classification Reported Allergen(s) Allergy Type Date of Onset Reaction(s) Facility Adhesive Tape (1 source) Adhesive Tape Substance Allergy 04-24-20 13 [facility] Povidone-Iodine (1 source) Povidone-Iodine Drug Allergy 04-24-20 13 [facility] Sulfonamides (antibiotic) (1 source) Sulfonamides (Antibiotic) Drug Allergy 04-24-20 13 [facility] Tetracyclines (antibiotic) (1 source) Tetracyclines Drug Allergy 04-24-20 13 [facility] (20 sources) Povidone-Iodine; Translations: [POVIDONE-IODINE] Drug Allergy 11-25-19 15 rash [email or web address] [place] [facility] Other (10 sources) Sulfonamides (Antibiotic) Propensity to adverse reactions rash [place] Other (11 sources) Tetracycline Drug Allergy 11-16-19 24 [facility] (10 sources) Adhesive 1 x6yd Drug allergy rash Located Within [facility] Other (10 sources) Amlodipine & Diet Manage Prod Drug allergy rash Located Within [facility] Other (2 sources) Povidone-Iodine; Translations: [Betadine] Drug Allergy 04-23-20 13 [facility] Repository (20 sources) Contrast media; Translations: [RED DYE] Drug allergy (disorder) 05-04-20 17 Rash [facility] Repository (2 sources) Desonide Drug Allergy 04-23-20 13 Rash [facility] (1 source) Sulfonamides (Antibiotic) Drug allergy (disorder) 04-23-20 13 [facility] (1 source) Tetracycline Drug Allergy 04-23-20 13 [facility] (20 sources) Adhesive agent; Translations: [ADHESIVE] Propensity to adverse reactions to drug 11-25-19 15 Other (See Comments), Itching [facility] (20 sources) dilTIAZem; Translations: [DILTIAZEM] Drug Allergy 09-01-20 22 Rash [facility] Work Phone: (20 sources) Linagliptin; Translations: [LINAGLIPTIN] Drug Allergy 09-01-20 Rash [facility] (20 sources) Sulfonamides (Antibiotic); Translations: [SULFA (SULFONAMIDE ANTIBIOTICS)] Propensity to adverse reactions to drug 11-25-19 15 [facility] (20 sources) Tetracycline (class of antibiotic); Translations: [TETRACYCLINES] Propensity to adverse reactions to drug 11-25-19 15 [facility] (20 sources) Adhesive Tape-Silicones; Translations: [ADHESIVE TAPE-SILICONES] Propensity to adverse reactions to drug 05-04-20 [facility] Work Phone: (1 source) Adhesive Tape Drug allergy (disorder) 11-16-19 [facility] Rep[facility] (1 source) Contrast media Drug allergy (disorder) 11-16-19 [facility] (1 source) Povidone-Iodine Drug Allergy 11-16-19 [facility] (1 source) Sulfonamides (Antibiotic) Drug allergy (disorder) 11-16-19 [facility] (1 source) Tetracycline Drug Allergy 11-16-19 [facility] (15 sources) SULFA DYNE; Translations: [SULFA DYNE] Propensity to adverse reactions to drug (disorder) 09-14-20 [facility] Repository Medications Current Medications Medication Drug Class(es) Dates Sig (Normalized) Sig (Original) acetaminophen 500 mg oral tablet (20 sources) take 1 tablet by mouth once daily, then take 2 tablets by mouth once daily in the morning acetaminophen (TYLENOL EXTRA STRENGTH) 500 mg tablet Take 1 tablet (500 mg total) by mouth once daily. Takes 2 pills every morning 0 Active take 1-2 capsules by mouth every six hours as needed Acetaminophen 500 mg 1-2 capsule as need ed Orally every 6 hrs Active acetaminophen 325 mg / HYDROcodone bitartrate 5 mg oral tablet (3 sources) Opioid Agonist take 1 tablet by mouth every twelve hours HYDROcodone-Acetaminophen 5-325 MG 1 tablet as needed Orally TWICE A DAY Active [id number] 200 actuat albuterol 0.09 mg/actuat metered dose inhaler (20 sources) beta2-Adrener gic Agonist Start: 2022 take 2 puff(s) by inhalation every six hours as needed for wheezing albuterol (PROVENTIL HFA;VENTOLIN HFA) 90 mcg/actuation inhaler Indications: Moderate persistent asthma with acute exacerbation Inhale 2 puffs every 6 (six) hours as needed for wheezing. 6.7 g 1 10/18/2023 Active take 2 puff(s) by in halation every six hours as needed ProAir HFA 108 (90 Base) MCG/ACT 2 puffs as needed Inhalation every 6 hrs Active allopurinol 100 mg oral tablet (20 sources) Xanthine Oxidase Inhibitor take 1 tablet by mouth in the morning allopurinol (ZYLOPRIM) 100 mg tablet Take 1 tablet (100 mg total) by mouth in the morning. 0 Active take 2 tablets by [facility] every twenty-four hours Allopurinol 100 MG 2 tablet Orally Once a day for 90 days Active ASA 81 mg (10 sources) take 1 tablet by mouth once daily ASA 81 mg 1 Tablet Oral daily Active aspirin 81 mg delayed release oral tablet (17 sources) Platelet Aggregation Inhibitor, Nonsteroidal Anti-inflammatory Drug take 1 tablet by mouth in the morning aspirin 81 mg Take 1 tablet (81 mg total) by mouth in the morning. 0 Active atorvastatin 80 mg oral tablet (20 sources) HMG-CoA Reductase Inhibitor Start: 05-16-20 23 atorvastatin (LIPITOR) 80 mg tablet TAKE 1 TABLET DAILY 90 tablet 3 05/16/2023 Active baclofen 10 mg oral tablet (20 sources) gamma-Aminobutyric Acid-ergic Agonist Start: 11-26-19 24 take 1 tablet by mouth once daily baclofen (LIORESAL) 10 mg tablet Take 1 tablet (10 mg total) by mouth nightly. 90 tablet 3 11/26/2023 Active take 1 tablet by mouth in the mo [facility] baclofen (LIORESAL) 10 mg tablet Take 1 tablet (10 mg total) by mouth in the morning. 0 Active biotin 10 mg oral tablet (20 sources) take 1 tablet by [place] once daily biotin 10 mg tablet Take 10 mg by mouth once daily. 0 Active take 1 capsule by mo [facility] every twenty-four hours Biotin Maximum Strength 5000 MCG 1 capsule Orally Once a day Active take 1 capsule by mo [facility] every twenty-four hours Biotin Maximum Strength 5000 MCG 1 capsule Orally Once a day Active Breo Ellipta 200-25 MCG/INH (3 sources) take 1 puff(s) by inhalation once daily Breo Ellipta 200-25 MCG/INH 1 puff Inhalation Once a day Active canagliflozin 100 mg oral tablet (11 sources) Sodium-Glucose Cotransporter 2 Inhibitor Start: 024 End: 024 take 1 tablet by mouth in the morning canagliflozin (INVOKANA) 100 mg tablet Take 1 tablet (100 mg total) by mouth in the morning. 90 tablet 1 12/11/2023 Active carvedilol 6.25 mg oral tablet (20 sources) alpha-Adrenergic Micki, beta-Adrenergic Micki Start: 023 carvediloL (COREG) 6.25 mg tablet TAKE 1 TABLET TWICE A DAY 180 tablet 3 04/16/2023 Active chondroitin sulfates 400 mg / glucosamine hydrochloride 500 mg oral tablet (17 sources) take 1 tablet by mouth once daily glucosamine-chondroi tin 500-400 mg tablet Take 1 tablet by mouth once daily. 0 Active 0.5 ml dulaglutide 1.5 mg/ml auto-injector (1 source) GLP-1 Receptor Agonist Trulicity 0.75 MG/0.5ML as directed Subcutaneous ONCE A WEEK Active estrogens, conjugated (mcc) 0.625 mg/ml vaginal cream (5 sources) Estrogen conjugated estro gens (PREMARIN) vaginal cream Insert 0.5 g into the vagina nightly. 0 Active 15 ml ferric carboxymaltose 50 mg/ml injection (3 sources) Start: 022 Injectafer 750 MG/15ML as directed Intravenous Nov, Active 30 actuat fluticasone furoate 0.2 mg/actuat / vilanterol 0.025 mg/actuat dry powder inhaler (20 sources) Corticosteroid, beta2-Adrenergic Agonist Start: 023 fluticasone furoate-vilanteroL (BREO ELLIPTA) 200-25 mcg/dose blister with device USE 1 INHALATION DAILY 3 each 3 07/03/2023 Active take 1 puff(s) by inhalation onc e daily Breo Ellipta 200-25 MCG/INH 1 puff Inhalation Once a day Active furosemide 40 mg oral tablet (20 sources) Loop Diuretic take 2 tablets by mouth twice daily furosemide (LASIX) 40 mg tablet furosemide 40 mg tablet Take 2 tablets twice a day by oral route for 90 days. 0 Active Glucosamine Chond Triple/Vit D - (10 sources) take 1 tablet by mouth twice daily Glucosamine Chond Triple/Vit D - 1 Tablet Orally bid Active hyoscyamine sulfate 0.125 mg oral tablet (5 sources) take 1 tablet by mouth every four hours as needed for pain hyoscyamine (ANASPAZ,LEVSIN) 0.125 mg tablet Take 1 tablet (0.125 mg total) by mouth every 4 (four) hours as needed for cramping. 0 Active 3 ml insulin glargine 100 unt/ml pen injector (20 sources) Insulin Analog Start: 12-05-2023 insulin glargine (LANTUS SOLOSTAR U-100 INSULIN) 100 unit/mL (3 mL) insulin pen Inject 46 Units under the skin nightly. 45 mL 3 12/05/2023 Active Start: 12-05-2023 insulin glargi ne (LANTUS SOLOSTAR U-100 INSULIN) 100 unit/mL (3 mL) insulin pen Inject 46 Units under the skin nightly. 45 mL 3 12/05/2023 Active Start: 11-26-2023 End: 12-05-2023 insulin glargine 300 unit/mL (TOUJEO SOLOSTAR U-300 INSULIN) 300 unit/mL (1.5 mL) insulin pen Inject 46 Units under the skin nightly. 10 mL 3 11/26/2023 12/05/2023 Discontinued (Patient Stopped On Own) Start: 05-22-2023 insulin glargi ne (LANTUS SOLOSTAR U-100 INSULIN) 100 unit/mL (3 mL) insulin pen Indications: Type 2 diabetes mellitus with stage 3b chronic kidney disease, with long-term current use of insulin ([facility]) Inject 46 Units under the skin in the morning. 45 mL 3 05/22/2023 Active inject 0.46 mL by [place] bcutaneous injection once daily insulin glargine (LANTUS) 100 unit/mL injection Inject 0.46 mL (46 Units total) under the skin nightly. 0 Active inject 46 [IU] by [place] bcutaneous injection once daily Lantus 100 UNIT/ML 46 UNITS Subcutaneous daily Active inject 46 [IU] by [place] bcutaneous injection once daily Lantus 100 UNIT/ML 46 UNITS Subcutaneous daily Active inject 50 [IU] by [place] bcutaneous injection once daily Lantus 100 UNIT/ML 50 UNITS Subcutaneous daily Active 3 ml insulin lispro 100 unt/ml pen injector (20 sources) Insulin Analog Start: 12-05-2023 inject 6 [IU] by subcutaneous injection twice daily before mealtime insulin lispro (HumaLOG KwikPen Insulin) 100 unit/mL insulin pen INJECT 6 UNITS UNDER THE SKIN TWICE A DAY BEFORE MEALS 15 mL 1 12/05/2023 Active Start: 11-26-2023 End: 12-05-2023 inject 6 [IU] by subcutaneous injection in the morning insulin lispro-aabc (LYUMJEV KWIKPEN U-100 INSULIN) 100 unit/mL insulin pen Inject 6 Units under the skin in the morning and 6 Units in the evening. Inject after meals. 15 mL 1 11/26/2023 12/05/2023 Discontinued (Patient Stopped On Own) Start: 07-02-2023 inject 6 [IU] by sub cutaneous injection twice daily before mealtime HumaLOG KwikPen Insulin 100 unit/mL insulin pen INJECT 6 UNITS UNDER THE SKIN TWICE A DAY BEFORE MEALS 15 mL 1 07/02/2023 Active inject 0.06 mL by [place] bcutaneous injection in the morning insulin lispro (HumaLOG) 100 unit/mL injection Inject 0.06 mL (6 Units total) under the skin in the morning and 0.06 mL (6 Units total) in the evening. Inject before meals. 0 Active inject 6 [IU] by sub cutaneous injection before lunch HumaLOG 100 UNIT/ML 6 UNITS Subcutaneous BEFORE LUNCH AND SUPPER Active inject 6 [IU] by sub cutaneous injection before lunch HumaLOG 100 UNIT/ML 6 UNITS Subcutaneous BEFORE LUNCH AND SUPPER Active magnesium oxide 400 mg oral tablet (13 sources) Start: 07-20-2022 take 1 tablet by mouth every twenty-four hours Magnesium Oxide 400 MG 1 tab(s) Orally Once a day for 90 day(s) Jul, Active metoclopramide 10 mg oral tablet (20 sources) Dopamine-2 Receptor Antagonist Start: 11-20-2022 metoclopramide (REGLAN) 10 mg tablet Take 1 tablet (10 mg total) by mouth in the morning and 1 tablet (10 mg total) at noon and 1 tablet (10 mg total) in the evening and 1 tablet (10 mg total) before bedtime. 360 tablet 1 11/20/2022 Active take 1 tablet by mouth every twe lve hours Reglan 10 MG 1 tablet before meals Orally Twice a day Active metroNIDAZOLE 0.01 mg/mg topical gel (5 sources) Nitroimidazole Antimicrobial Start: 05-22-2023 metroNIDAZOLE (MetrogeL) 1 % gel Indications: Rosacea Apply 1 Application topically in the morning. 45 g 1 05/22/2023 Active montelukast 10 mg oral tablet (20 sources) Leukotriene Receptor Antagonist Start: 04-04-2023 montelukast (SINGULAIR) 10 mg tablet TAKE 1 TABLET DAILY 90 tablet 3 04/04/2023 Active Multi For Her 50+ - (10 sources) Multi For Her 50 + - Orally Active [id number]-ca lcium &mins (THERAGRAN-M) 9 mg iron-400 mcg tablet (17 sources) [id number] -c alcium &mins (THERAGRAN-M) 9 mg iron-400 mcg tablet Take 1 tablet by mouth in the morning. 0 Active Holiday 3-6-9 Complex - (10 sources) Holiday 3-6-9 Complex - Orally Active omega-3 fatty acids-fish oil 300-1,000 mg capsule (17 sources) take 2 capsules by mouth in the morning omega-3 fatty acids-fish oil 300-1,000 mg capsule Take 2 capsules (2 g total) by mouth in the morning. 0 Active omeprazole 20 mg delayed release oral capsule (20 sources) Proton Pump Inhibitor Start: 05-07-2023 omeprazole (PriLOSEC) 20 mg capsule TAKE 1 CAPSULE TWICE A DAY 180 capsule 3 05/07/2023 Active take 1 capsule by [facility] every twenty-four hours Omeprazole 20 MG 1 cap(s) Orally Once a day Active take 1 capsule by mouth every tw elve hours Omeprazole 20 MG 1 cap(s) Orally bid Active pregabalin 75 mg oral capsul e (20 sources) pregabalin (LYRI CA) 75 mg capsule daily. 0 Active take 1 capsule by mouth every tw elve hours Lyrica 75 MG 1 capsule Orally Twice a day Active ProAir HFA 108 (90 Base) MCG/ACT (3 sources) take 2 puff(s) by inhalation every six hours as needed ProAir HFA 108 (90 Base) MCG/ACT 2 puffs as needed Inhalation every 6 hrs Active ramipril 10 mg oral capsule (20 sources) Angiotensin Converting Enzyme Inhibitor Start: 023 End: 024 ramipriL (ALTACE) 10 mg capsule TAKE 1 CAPSULE DAILY 90 capsule 3 11/13/2023 Active theophylline 400 mg extended release oral tablet (20 sources) Methylxanthine Start: theophylline (UNIPHYL) 400 mg 24 hr tablet TAKE 1 TABLET DAILY 90 tablet 3 03/19/2023 Active 24 hr traMADol hydrochloride 100 mg extended release oral tablet (20 sources) Opioid Agonist take 1 tablet by mouth every twenty-four hours in the morning traMADol ER (ULTRAM-ER) 100 mg 24 hr tablet Take 1 tablet (100 mg total) by mouth in the morning. 0 Active take 1 tablet by [place] th every twenty-four hours traMADol HCl ER 100 MG 1 tablet Orally Once a day Active traMADol HCl 50 MG 1 Tablet Orally 1 TAB Q 6 HOURS PRN Active Completed/Discontinued Medications Medication Drug Class(es) Dates Sig (Normalized) Sig (Original) 50 ml magnesium sulfate 40 mg/ml injection (8 sources) Start: 01-16-2024 End: 01-16-2024 magnesium sulfate IVPB 2000 mg/50 mL in iso-osmotic water (40 mg/mL premix) Start: 01-09-2024 End: 01-09-2024 magnesium sulfate IVPB 2000 mg/50 mL in iso-osmotic water (40 mg/mL premix) Start: 01-02-2024 End: 01-02-2024 magnesium sulfate IVPB 2000 mg/50 mL in iso-osmotic water (40 mg/mL premix) Start: 12-26-2023 End: 12-26-2023 magnesium sulfate IVPB 2000 mg/50 mL in iso-osmotic water (40 mg/mL premix) Start: 12-19-2023 End: 12-19-2023 magnesium sulfate IVPB 4000 mg/100 mL in iso-osmotic water (40 mg/mL premix) Start: 12-12-2023 End: 12-12-2023 magnesium sulfate IVPB 2000 mg/50 mL in iso-osmotic water (40 mg/mL premix) Start: 11-28-2023 End: 11-28-2023 magnesium sulfate IVPB 2000 mg/50 mL in iso-osmotic water (40 mg/mL premix) Start: 11-21-2023 End: 11-21-2023 magnesium sulfate IVPB 4000 mg/100 mL in iso-osmotic water (40 mg/mL premix) 1000 ml sodium chloride 9 mg /ml injection (8 sources) Start: 01-16-2024 End: 01-16-2024 sodium chloride 0.9 % infusi on Start: 01-09-2024 End: 01-09-2024 sodium chloride 0.9 % infusi on Start: 01-02-2024 End: 01-02-2024 sodium chloride 0.9 % infusi on Start: 12-26-2023 End: 12-26-2023 sodium chloride 0.9 % infusi on Start: 12-19-2023 End: 12-19-2023 sodium chloride 0.9 % infusi on Start: 12-12-2023 End: 12-12-2023 sodium chloride 0.9 % infusi on Start: 11-28-2023 End: 11-28-2023 sodium chloride 0.9 % infusi on Start: 11-21-2023 End: 11-21-2023 sodium chloride 0.9 % infusi on Problems Active Problems Problem Classification Problem Date Documented Date Episodic/Chronic Asthma (17 sources) Asthma; Translations: [Unspecified asthma, uncomplicated] Onset: 2 09-01-2022 Chronic Cataract (17 sources) Bilateral cataracts; Translations: [Unspecified cataract] Onset: 2 09-01-2022 Chronic Chronic kidney disease (20 sources) Chronic kidney disease stage 3; Translations: [Chronic kidney disease, stage 3 (moderate)] Onset: 8 Resolved: 2 Chronic Chronic kidney disease (4 sources) Chronic kidney disease; Translations: [Chronic kidney disease, stage 3b] Onset: 4 Chronic obstructive pulmonary disease and bronchiectasis (17 sources) Chronic obstructive lung disease; Translations: [Chronic obstructive pulmonary disease, unspecified] Onset: 2 09-01-2022 Chronic Coronary atherosclerosis and other heart disease (19 sources) Coronary atherosclerosis; Translations: [Atherosclerotic heart disease of [place] coronary artery without angina pectoris] Onset: 2 11-14-2022 Chronic Deficiency and other anemia (10 sources) Anemia of renal disease; Translations: [Anemia in chronic kidney disease] Chronic Deficiency and other anemia (6 sources) Anemia in chronic kidney disease; Translations: [ANEMIA IN CHRONIC KIDNEY DISEASE] Onset: 2 Resolved: 2 Chronic Diabetes mellitus with complications (20 sources) Type 2 diabetes mellitus; Translations: [Type 2 diabetes mellitus with diabetic chronic kidney disease] Onset: 2 Resolved: 2 Chronic Disorders of lipid metabolism (20 sources) Mixed hyperlipidemia; Translations: [Hyperlipidemia] Onset: 2 09-01-2022 Chronic Esophageal disorders (20 sources) Lin's esophagus; 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] Onset: 7 05-04-2017 Chronic Essential hypertension (20 sources) Essential (primary) hypertension; Translations: [Essential hypertension] Onset: 2 09-01-2022 Chronic Hypertension with complications and secondary hypertension (20 sources) Hypertensive renal disease; Translations: [Hypertensive chronic kidney disease with stage 1 through stage 4 chronic kidney disease, or unspecified chronic kidney disease] Onset: 2 Resolved: 2 Chronic Osteoarthritis (17 sources) Osteoarthritis of knee; Translations: [Osteoarthritis of knee, unspecified] Onset: 7 11-14-2022 Chronic Other aftercare (3 sources) jail (current) use of insulin; Translations: [ALF CURRENT USE OF INSULIN] Onset: 2 Episodic Other diseases of kidney and ureters (10 sources) Secondary hyperparathyroidism; Translations: [Secondary hyperparathyroidism of renal origin] Chronic Other diseases of kidney and ureters (6 sources) Secondary hyperparathyroidism of renal origin; Translations: [SEC HYPERPARATHYROIDISM RENAL ORIGN] Onset: 2 Resolved: 2 Chronic Other eye disorders (17 sources) Posterior vitreous detachment; Translations: [Vitreous degeneration, unspecified eye] Onset: 3 07-24-2023 Chronic Other hereditary and degenerative nervous system conditions (17 sources) Essential tremor; Translations: [Essential tremor] Onset: 8 09-01-2022 Chronic Other nervous system disorders (1 source) Other chronic pain; Translations: [OTHER CHRONIC PAIN] Onset: 2 Chronic Other nutritional; endocrine; and metabolic disorders (20 sources) Hypomagnesemia; Translations: [Hypomagnesemia] Onset: 4 11-19-2023 Chronic Other nutritional; endocrine; and metabolic disorders (3 sources) Hypomagnesemia; Translations: [Hypomagnesemia] Onset: 4 Chronic Other nutritional; endocrine; and metabolic disorders (1 source) Obesity, unspecified; Translations: [OBESITY UNSPECIFIED] Onset: 2 Chronic Other nutritional; endocrine; and metabolic disorders (17 sources) Morbid obesity; Translations: [Morbid (severe) obesity due to excess calories] Onset: 3 11-14-2022 Chronic Other nutritional; endocrine; and metabolic disorders (10 sources) H/O: metabolic disorder; Translations: [Personal history of other endocrine, nutritional and metabolic disease] Episodic Other nutritional; endocrine; and metabolic disorders (6 sources) 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 inflammatory arthritis and tophaceous disease; Translations: [HU W/O SIGNS IA AND TOPHACEOUS DZ] Onset: 2 Resolved: 2 Episodic Residual codes; unclassified (17 sources) Obstructive sleep apnea syndrome; Translations: [Obstructive sleep apnea (adult) (pediatric)] Onset: 2 09-01-2022 Chronic Screening and history of mental health and substance abuse codes (1 source) Patient encounter status; Translations: [Encounter for screening for depression] 01-08-2024 Episodic Spondylosis; intervertebral disc disorders; other back problems (1 source) Postlaminectomy syndrome, not elsewhere classified; Translations: [POSTLAMINECTOMY SYNDROME NEC] Onset: 2 Chronic Spondylosis; intervertebral disc disorders; other back problems (11 sources) Intervertebral disc disorders with radiculopathy, lumbar region; Translations: [Spinal stenosis, lumbar region without neurogenic claudication] Onset: 2 Episodic Unclassified (3 sources) LOW BACK PAIN, UNSPECIFIED; Translations: [LOW BACK PAIN, UNSPECIFIED] Onset: 2 Unclassified (1 source) Outpatient Infusion Onset: 4 Past or Other Problems Problem Classification Problem Date Documented Date Episodic/Chronic Allergic reactions (17 sources) Environmental allergy; Translations: [Other allergy status, other than to drugs and biological substances] Onset: 09-01-2022 09-01-2022 Episodic Biliary tract disease (17 sources) Disorder of gallbladder; Translations: [Disease of gallbladder, unspecified] Onset: 09-01-2022 09-01-2022 Episodic Fluid and electrolyte disorders (17 sources) Drug-induced hyperkalemia; Translations: [Hyperkalemia] Onset: 12-13-2017 09-01-2022 Episodic Gastritis and duodenitis (17 sources) Gastroduodenitis; Translations: [Gastroduodenitis, unspecified, without bleeding] Onset: 05-09-2017 05-09-2017 Episodic Genitourinary symptoms and ill-defined conditions (17 sources) Microalbuminuria; Translations: [Proteinuria, unspecified] Onset: 10-16-2016 09-01-2022 Episodic Mood disorders (17 sources) Mood disorders Onset: 10-18-2023 Resolved: 01-08-2024 10-18-2023 Neoplasms of unspecified nature or uncertain behavior (17 sources) Neoplasm of uncertain behavior of skin of finger; Translations: [Neoplasm of uncertain behavior of skin] Onset: 09-01-2022 09-01-2022 Episodic Other and unspecified benign neoplasm (17 sources) Gastric polyp; Translations: [Polyp of stomach and duodenum] Onset: 05-09-2017 05-09-2017 Episodic Other connective tissue disease (1 source) Muscle wasting and atrophy, not elsewhere classified, unspecified site; Translations: [MUSCLE WASTING ATROPHY NEC UNS SITE] Onset: 04-27-2022 Episodic Other lower respiratory disease (17 sources) Disorder of lung; Translations: [Other disorders of lung] Onset: 04-24-2013 11-14-2022 Episodic Other lower respiratory disease (17 sources) Dyspnea; Translations: [Dyspnea, unspecified] Onset: 04-24-2013 11-14-2022 Episodic Other nervous system disorders (17 sources) Paresthesia; Translations: [Paresthesia of skin] Onset: 09-01-2022 09-01-2022 Episodic Unclassified (1 source) LOW BACK PAIN, UNSPECIFIED; Translations: [LOW BACK PAIN, UNSPECIFIED] Onset: 08-02-2022 Results Test Name Value Interpretation Reference Range Facility MAGNESIUMon 01-14-2024 Magnesium [Mass/Vol] 1.6 mg/dL Low 1.8-2.6 [facility] Comment on above: Performed By: #### 1 9123-9 #### [facility] ([id number]) [address] [place] [address] #### [facility], 94097-3 #### [facility] ([id number]) [address] [place] [address], [address] [place] [address] MAGNESIUMon 01-07-2024 Magnesium [Mass/Vol] 1.7 mg/dL Low 1.8-2.6 [facility] Comment on above: Performed By: #### 1 9123-9 #### [facility] ([id number]) [address] [place] [address] MAGNESIUMon 12-31-2023 Magnesium [Mass/Vol] 1.7 mg/dL Low 1.8-2.6 [facility] Comment on above: Performed By: #### 1 9123-9 #### [facility] ([id number]) [address] [place] [address] MAGNESIUMon 12-24-2023 Magnesium [Mass/Vol] 1.6 mg/dL Low 1.8-2.6 [facility] Comment on above: Performed By: #### 1 9123-9 #### [facility] ([id number]) [address] [place] [address] MAGNESIUMon 12-17-2023 Magnesium [Mass/Vol] 1.5 mg/dL Low 1.8-2.6 [facility] Comment on above: Performed By: #### 1 9123-9 #### [facility] ([id number]) [address] [place] [address] MAGNESIUMon 12-10-2023 Magnesium [Mass/Vol] 1.7 mg/dL Low 1.8-2.6 [facility] Comment on above: Performed By: #### 1 9123-9 #### [facility] ([id number]) [address] [place] [address] MAGNESIUMon 12-03-2023 Magnesium [Mass/Vol] 1.7 mg/dL Low 1.8-2.6 [facility] Comment on above: Performed By: #### 1 9123-9 #### [facility] ([id number]) [address] [place] [address] COMPREHENSIVE METABOLIC PANE Jared 11-26-2023 Albumin [Mass/Vol] 3.9 g/dL Normal 3.2-5.3 [facility] Comment on above: Performed By: #### 1 9123-9 #### [facility] ([id number]) [address] [place] [address] #### JAS, 62628-8 #### [facility] ([id number]) [address] [facility] [place] [address] ALP [Catalytic activity/Vol] 122 U/L Normal 39-130 [facility] Comment on above: Performed By: #### 1 9123-9 #### [facility] ([id number]) [address] [place] [address] 29843 #### CMP, 56023-1 #### [facility] ([id number]) [address], [address] [place] [address] ALT [Catalytic activity/Vol] 29 U/L Normal 0-31 [facility] Comment on above: Performed By: #### 1 9123-9 #### [facility] ([id number]) [address] [place] [address] #### CMP, 89504-4 #### [facility] ([id number]) [address], [address] [place] [address] Anion gap [Moles/Vol] 9 mmol/L Normal 5-15 [facility] Comment on above: Performed By: #### 1 9123-9 #### [facility] ([id number]) [address] [place] [address] 32343 #### CMP, 12141-7 #### [facility] ([id number]) [address] [facility] [place] [address] AST [Catalytic activity/Vol] 22 U/L Normal 0-41 [facility] Comment on above: Performed By: #### 1 9123-9 #### [facility] ([id number]) [address] [place] [address] 41927 #### JAS, 84112-4 #### [facility] ([id number]) [address], [address] [place] [address] Bilirubin [Mass/Vol] 0.4 mg/dL Normal 0.3-1.2 [facility] Comment on above: Performed By: #### 1 9123-9 #### [facility] ([id number]) [address] [place] [address] 77690 #### JAS, 21191-9 #### [facility] ([id number]) [address], [address] [place] [address] Calcium [Mass/Vol] 9.7 mg/dL Normal 8.5-10.5 [facility] Comment on above: Performed By: #### 1 9123-9 #### [facility] ([id number]) [address] [place] [address] 35012 #### JAS, 24711-0 #### [facility] ([id number]) [address], [address] [place] [address] Chloride [Moles/Vol] 103 mmol/L Normal 98-109 [facility] Comment on above: Performed By: #### 1 9123-9 #### [facility] ([id number]) [address] [place] [address] 49486 #### JAS, 70665-9 #### [facility] ([id number]) [address] [facility], [address] [place] [address] CO2 [Moles/Vol] 30 mmol/L Normal 22-32 [facility] Comment on above: Performed By: #### 1 9123-9 #### [facility] ([id number]) [address] [place] [address] 53712 #### JAS, 64549-7 #### [facility] ([id number]) [address] [facility], [address] [place] [address] Creatinine [Mass/Vol] 1.53 mg/dL High 0.40-1.00 [facility] Comment on above: Result Comment: METH OD TRACEABLE TO IDMS STANDARD Performed By: #### 1 9123-9 #### [facility] ([id number]) [address] [place] [address] 22270 #### JAS, 25893-0 #### [facility] ([id number]) [address] [facility] [place] [address] GFR/1.73 sq M.predicted among non-blacks MDRD (S/P/Bld) [Vol rate/Area] 34 mL/min/{1.73_m2} Low >59 [facility] Comment on above: Result Comment: Reported eGFR is based on the CKD-EPI 2020 equation that does not use a race coefficient. Performed By: #### 1 9123-9 #### [facility] ([id number]) [address] [place] [address] 30825 #### CMP, 79043-7 #### [facility] ([id number]) [address], [address] [place] [address] Glucose [Mass/Vol] 165 mg/dL High 65-99 [facility] Comment on above: Performed By: #### 1 9123-9 #### [facility] ([id number]) [address] [place] [address] 75064 #### CMP, 25410-4 #### [facility] ([id number]) [address], [address] [place] [address] Potassium [Moles/Vol] 4.4 mmol/L Normal 3.5-5.0 [facility] Comment on above: Performed By: #### 1 9123-9 #### [facility] ([id number]) [address] [place] [address] 10739 #### JAS, 97904-6 #### [facility] ([id number]) [address], [address] [place] [address] Protein [Mass/Vol] 7.1 g/dL Normal 6.0-8.0 [facility] Comment on above: Performed By: #### 1 9123-9 #### [facility] ([id number]) [address] [place] [address] 81310 #### JAS, 25538-0 #### [facility] ([id number]) [address], [address] [place] [address] Sodium [Moles/Vol] 142 mmol/L Normal 134-146 [facility] Comment on above: Performed By: #### 1 9123-9 #### [facility] ([id number]) [address] [place] [address] 35785 #### JAS, 14335-6 #### [facility] ([id number]) [address] [facility] [place] [address] Urea nitrogen [Mass/Vol] 43 mg/dL High 5-27 [facility] Comment on above: Performed By: #### 1 9123-9 #### [facility] ([id number]) [address] [place] [address] 87776 #### JAS, 47446-7 #### [facility] ([id number]) [address] [facility] [place] [address] HGB A1C (GLYCO-HGB)on 2023 Glucose [Mass/Vol] 163 mg/dL Normal [facility] Comment on above: Performed By: #### 1 9123-9 #### [facility] ([id number]) [address] [place] [address] 34129 #### JAS, 05558-2 #### [facility] ([id number]) [address] [facility] [place] [address] HbA1c (Bld) [Mass fraction] 7.3 % High 4.4-5.6 [facility] Comment on above: Result Comment: NOTE ADA Guidelines Result HgbA1c Normal : less than 5.7 % Prediabetes : 5.7 % to 6.4 % Diabetes : > 6.4 % Use with caution in patients with abnormal hemoglobin variants as the half-life of red blood cells and in vivo glycation rates are affected. Performed By: #### 1 9123-9 #### [facility] ([id number]) [address] [place] [address] 56148 #### JAS, 86464-4 #### [facility] ([id number]) [address] [facility] [place] [address] Lipid 1996 panelon 4 Cholesterol [Mass/Vol] 145 mg/dL Low 150-200 [facility] Comment on above: Performed By: #### 1 9123-9 #### [facility] ([id number]) [address] [place] [address] 60683 #### JAS, 52986-6 #### [facility] ([id number]) [address], [address] [place] [address] Cholesterol in HDL [Mass/Vol] 53 mg/dL Normal >39 [facility] Comment on above: Result Comment: HDL <40 mg/dL - High Risk HDL > or = 40mg/dL- Desirable HDL >60 mg/dL - Negative Risk Performed By: #### 1 9123-9 #### [facility] ([id number]) [address] [place] [address] 43346 #### JAS, 87959-0 #### [facility] ([id number]) [address], [address] [place] [address] Cholesterol in LDL [Mass/Vol] 43 mg/dL Normal <130 [facility] Comment on above: Result Comment: LDL <100 mg/dL - Desirable LDL >160 mg/dL - High Risk Performed By: #### 1 9123-9 #### [facility] ([id number]) [address] [place] [address] 60117 #### JAS, 28686-2 #### [facility] ([id number]) [address], [address] [place] [address] Cholesterol in VLDL [Mass/Vol] 49 mg/dL High 0-30 [facility] Comment on above: Performed By: #### 1 9123-9 #### [facility] ([id number]) [address] [place] [address] 49838 #### JAS, 04350-1 #### [facility] ([id number]) [address] [facility] [place] [address] CHOLESTEROL:HDL 2.7 Normal 1.0-5.0 [facility] Comment on above: Performed By: #### 1 9123-9 #### [facility] ([id number]) [address] [place] [address] 09561 #### JAS, 45850-8 #### [facility] ([id number]) [address] [facility], [address] [place] [address] Triglyceride [Mass/Vol] 245 mg/dL High 27-150 [facility] Comment on above: Performed By: #### 1 9123-9 #### [facility] ([id number]) [address] [place] [address] 69592 #### JAS, 94934-9 #### [facility] ([id number]) [address] [facility], [address] [place] [address] MAGNESIUMon 11-26-2023 Magnesium [Mass/Vol] 1.8 mg/dL Normal 1.8-2.6 [facility] Comment on above: Performed By: #### 1 9123-9 #### [facility] ([id number]) [address] [place] [address] 32332 #### CMP, 77295-7 #### [facility] ([id number]) [address] [facility] [place] [address] MICROALBUMIN - ALBUMIN:CREAT ININE URINE RATIOon 11-26-2023 ALB/CREAT RATIO 352.8 mg/g creat High 0.0-30.0 [facility] Comment on above: Performed By: #### M ALBU #### [facility] ([id number]) [address], [address] [place] [address] Albumin DL <= 20 mg/L (U) [Mass/Vol] 14.6 mg/dL High 0.0-1.9 [facility] Comment on above: Performed By: #### M ALBU #### [facility] ([id number]) [address] [facility] [place] [address] URINE CREAT 41.38 mg/dL Normal [facility] Comment on above: Performed By: #### M ALBU #### [facility] ([id number]) [address] [facility] [place] [address] Office Visiton 11-19-2023 Follow-up visit [id number] [place] Antonio breauxana maria Wesley 1940 F Date Provider Department Center 11/19/2023 DARELL [place]STON [facility] Family History Problem Relation Age of Onset Heart attack Mother Family Status - Relation Status Age at Mother Level of Service:53293 [place] OFFICE/OUTPATIENT ESTABLISHED LOW MDM 20 MIN Normal [facility] Magnesiumon 11-16-2023 Magnesium [Mass/Vol] 1.4 mg/dL Low 1.9-2.7 [facility] Comment on above: Result Comment: PERF ORMED BY: [address] [address] PATHOLOGIST MANAGER ORACLE STONEY LINO M.D. Performed By: #### M G #### [facility] [address] [place] [address] [facility] Magnesium [Mass/volume] in S asiya or PlasmaOrdered By: Gia Conley on 11-16-2023 Magnesium [Mass/Vol] 1.4 mg/dL 1.9-2.7 [facility] Multiple labsOrdered By: Mary Ann Carter on 11-16-2023 [facility] PTH INTACTon 01-16-2023 PTH, Intact 115 pg/mL Critically high 15-65 [facility] Comment on above: Performed By: #### M G, URIC, RENAL #### [facility] [address] [place] [address] Dr. Nacho Jeffery FERRITINon 01-15-2023 Ferritin [Mass/Vol] 304.0 ng/mL Critically high 8.0-252.0 [facility] Comment on above: Performed By: #### M G, URIC, RENAL #### [facility] [address] [place] [address] Dr. Nacho Jeffery HEMOGRAM AND PLATELon 2022 Hematocrit (Bld) [Volume fraction] 36.0 % Normal 36.0-48.0 [facility] Comment on above: Performed By: #### M G, URIC, RENAL #### [facility] [address] [place] [address] Dr. Nacho Jeffery Hemoglobin (Bld) [Mass/Vol] 11.6 g/dL Critically low 12.0-16.0 [facility] Comment on above: Performed By: #### M G, URIC, RENAL #### [facility] [address] [place] [address] Dr. Nacho Jeffery MCH (RBC) [Entitic mass] 29.4 pg Normal 26.7-34.0 [facility] Comment on above: Performed By: #### M G, URIC, RENAL #### [facility] [address] [place] [address] Dr. Nacho Jeffery MCHC (RBC) [Mass/Vol] 32.2 g/dL Normal 29.9-35.2 [facility] Comment on above: Performed By: #### M G, URIC, RENAL #### [facility] [address] [place] [address] Dr. Nacho Jeffery MCV (RBC) [Entitic vol] 91.4 fL Normal 81.0-99.0 [facility] Comment on above: Performed By: #### M G, URIC, RENAL #### [facility] [address] [place] [address] Dr. Nacho Jeffery PLT 202 103/ul Normal 150-450 [facility] Comment on above: Performed By: #### M G, URIC, RENAL #### [facility] [address] [address] [address] Nacho Jeffery RBC 3.94 106/ul Critically low 4.20-5.40 [facility] Comment on above: Performed By: #### M G, URIC, RENAL #### [facility] [address] [address] [address] Nacho Jeffery WBC 5.9 103/ul Normal 4.0-11.0 [facility] Comment on above: Performed By: #### M G, URIC, RENAL #### [facility] [address] [address] [address] Nacho Jeffery IRON AND TIBCon 01-15-2023 % SATURATION 23.4 % Normal [facility] Comment on above: Performed By: #### M G, URIC, RENAL #### [facility] [address] [place] [address] Dr. Nacho Jeffery Iron [Mass/Vol] 62.0 ug/dL Normal 50.0-170.0 [facility] Comment on above: Performed By: #### M G, URIC, RENAL #### [facility] [address] [place] [address] Dr. Nacho Jeffery TIBC DIRECT 265.0 ug/dL Normal 250.0-450.0 [facility] Comment on above: Performed By: #### M G, URIC, RENAL #### [facility] [address] [place] [address] Dr. Nacho Jeffery MAGNESIUMon 01-15-2023 Magnesium [Mass/Vol] 1.5 mg/dL Critically low 1.8-2.4 [facility] Comment on above: Performed By: #### M G, URIC, RENAL #### [facility] [address] [place] [address] Dr. Nacho Jeffery RENAL FUNCTION PANELon 01-15 Albumin [Mass/Vol] 3.4 g/dL Normal 3.4-5.0 [facility] Comment on above: Performed By: #### M G, URIC, RENAL #### [facility] [address] [place] [address] Dr. Nacho Jeffery Calcium [Mass/Vol] 9.2 mg/dL Normal 8.5-10.1 [facility] Comment on above: Performed By: #### M G, URIC, RENAL #### [facility] [address] [address] [address] Nacho Jeffery Chloride [Moles/Vol] 104 mmol/L Normal 98-107 [facility] Comment on above: Performed By: #### M G, URIC, RENAL #### [facility] [address] [address] [address] Nacho Jeffery CO2 [Moles/Vol] 30.8 mmol/L Normal 21.0-32.0 [facility] Comment on above: Performed By: #### M Jamarcus, URIC, RENAL #### [facility] [address] [place] [address] Dr. Nacho Jeffery Creatinine [Mass/Vol] 1.52 mg/dL Critically high 0.55-1.02 [facility] Comment on above: Performed By: #### M G, URIC, RENAL #### [facility] [address] [address] [address] Nacho Jeffery EGFR-AF [place] 40 mL/min/1.73m2 Critically low >=60 [facility] Comment on above: Performed By: #### M G, URIC, RENAL #### [facility] [address] [place] [address] Dr. Nacho Jeffery EGFR-NON AF [place] 33 mL/min/1.73m2 Critically low >=60 [facility] Comment on above: Performed By: #### M G, URIC, RENAL #### [facility] [address] [address] [address] Nacho Jeffery Glucose [Mass/Vol] 172 mg/dL Critically high 74-106 [facility] Comment on above: Performed By: #### M G, URIC, RENAL #### [facility] [address] [address] [address] Nacho Jeffery Phosphate [Mass/Vol] 3.7 mg/dL Normal 2.6-4.7 [facility] Comment on above: Performed By: #### M Jamarcus, URIC, RENAL #### [facility] [address] [place] [address] Dr. Nacho Jeffery Potassium [Moles/Vol] 4.2 mmol/L Normal 3.5-5.1 [facility] Comment on above: Performed By: #### M G, URIC, RENAL #### [facility] [address] [place] [address] Dr. Nacho Jeffery Sodium [Moles/Vol] 143 mmol/L Normal 136-145 [facility] Comment on above: Performed By: #### M G, URIC, RENAL #### [facility] [address] [place] [address] Dr. Nacho Jeffery Urea nitrogen [Mass/Vol] 56.0 mg/dL Critically high 7.0-18.0 [facility] Comment on above: Performed By: #### M G, URIC, RENAL #### [facility] [address] [place] [address] Dr. Nacho Jeffery UA RANDOM W/MICROSCOPICon BACTERIA NONE SEEN Normal NONE SEEN [facility] Comment on above: Performed By: #### M G, URIC, RENAL #### [facility] [address] [place] [address] Dr. Nacho Jeffery Bilirubin Ql (U) Negative Normal NEGATIVE [facility] Comment on above: Performed By: #### M G, URIC, RENAL #### [facility] [address] [place] [address] Dr. Nacho Jeffery CAST NONE SEEN Normal NONE SEEN [facility] Comment on above: Performed By: #### M G, URIC, RENAL #### [facility] [address] [place] [address] Dr. Nacho Jeffery Clarity (U) CLEAR Normal CLEAR [facility] Comment on above: Performed By: #### M G, URIC, RENAL #### [facility] [address] [place] [address] Dr. Nacho Jeffery Color (U) LT. YELLOW Normal YELLOW [facility] Comment on above: Performed By: #### M G, URIC, RENAL #### [facility] [address] [address] [address] Nacho Jeffery Crystals LM Nom (Urine sed) NONE SEEN Normal NONE SEEN [facility] Comment on above: Performed By: #### M G, URIC, RENAL #### [facility] [address] [place] [address] Dr. Nacho Jeffery Epithelial cells LM Ql (Urine sed) RARE Normal NONE SEEN /RARE [facility] Comment on above: Performed By: #### M G, URIC, RENAL #### [facility] [address] [address] [address] Nacho Jeffery Glucose Ql (U) Negative Normal NEGATIVE [facility] Comment on above: Performed By: #### M G, URIC, RENAL #### [facility] [address] [place] [address] Dr. Nacho Jeffery Hemoglobin Ql (U) Negative Normal NEGATIVE [facility] Comment on above: Performed By: #### M G, URIC, RENAL #### [facility] [address] [place] [address] Dr. Nacho Jeffery Ketones Ql (U) Negative Normal NEGATIVE [facility] Comment on above: Performed By: #### M G, URIC, RENAL #### [facility] [address] [place] [address] Dr. Nacho Jeffery LEUKOCYTES TRACE Abnormal NEGATIVE [facility] Comment on above: Performed By: #### M G, URIC, RENAL #### [facility] [address] [place] [address] Dr. Nacho Jeffery MUCOUS NONE SEEN Normal NONE SEEN [facility] Comment on above: Performed By: #### M G, URIC, RENAL #### [facility] [address] [place] [address] Dr. Nacho Jeffery Nitrite Ql (U) Negative Normal NEGATIVE [facility] Comment on above: Performed By: #### M G, URIC, RENAL #### [facility] [address] [place] [address] Dr. Nacho Jeffery pH (U) 5.5 [pH] Normal 5-9 [facility] Comment on above: Performed By: #### M G, URIC, RENAL #### [facility] [address] [address] [address] Nacho Jeffery RBC 0-2 Normal 0-2 [facility] Comment on above: Performed By: #### M G, URIC, RENAL #### [facility] [address] [address] [address] Nacho Jeffery SPEC GRAVITY 1.015 Normal 1.005-<=1.025 [facility] Comment on above: Performed By: #### M G, URIC, RENAL #### [facility] [address] [address] [address] Nacho Jeffery UA PROTEIN Negative Normal NEGATIVE/ TRACE [facility] Comment on above: Performed By: #### M G, URIC, RENAL #### [facility] [address] [address] [address] Nacho Jeffery Urobilinogen Qn (U) 0.2 {Zuleyka'U}/dL Normal 0.2 - 1. 0 [facility] Comment on above: Performed By: #### M G, URIC, RENAL #### [facility] [address] [address] [address] Nacho Jeffery WBC 2-5 Abnormal NONE SEEN [facility] Comment on above: Performed By: #### M G, URIC, RENAL #### [facility] [address] [place] [address] Dr. Nacho Jeffery URIC ACID SERUMon 01-15-2023 Urate [Mass/Vol] 7.0 mg/dL Critically high 2.6-6.0 [facility] Comment on above: Performed By: #### M G, URIC, RENAL #### [facility] [address] [place] [address] Dr. Nacho Jeffery URINE T PROTEIN CREAT RATIOo n 01-15-2023 Protein (U) [Mass/Vol] 13.4 mg/dL Critically high <=12.0 [facility] Comment on above: Performed By: #### U RTPCR #### [facility] [address] [address] [address] Nacho Jeffery UR PROT CREAT RAT 0.24 Normal [facility] Comment on above: Performed By: #### U RTPCR #### [facility] [address] [address] [address] Nacho Jeffery URINE CREAT 56.90 mg/dL Normal 20.00-300.00 [facility] Comment on above: Performed By: #### U RTPCR #### [facility] [address] [address] [address] Nacho Jeffery VITAMIN D 25 OHon 01-15-2023 VIT D 25-OH 52.6 ng/mL Normal [facility] Comment on above: Performed By: #### M G, URIC, RENAL #### [facility] [address] [place] [address] Dr. Nacho Jeffery VIT D RANGES SEE BELOW Normal [facility] Comment on above: Result Comment: <20 ng/mL Vit D deficient 20 - <30 ng/mL Vit D insufficient 30 - 100 ng/mL Vit D sufficient >100 ng/mL Potential Toxicity Performed By: #### M G, URIC, RENAL #### [facility] [address] [place] [address] Dr. Nacho Jeffery Telemedicineon 12-06-2022 Telemedicine [id number] Adore Wolff 1940 F Date Provider Department [place] 12/06/2022 [facility] Family History Problem Relation Age of Onset Heart attack Mother Family Status - Relation Status Age at Mother Level of Service:[address] [place] OFFICE/OUTPATIENT EST PT MAY NOT REQ PHYS/QHP Normal [facility] GLYCOHEMOGLOBIN A1Con 2021 ADA RECOMMENDATION SEE BELOW Normal [facility] Comment on above: Result Comment: ADA RECOMMENDED LIMIT 4.0 - 6.0 ADA THERAPEUTIC TARGET < 7.0 ACTION SUGGESTED > 7.0 Performed By: #### A 1C #### [facility] [address] [place] [address] Dr. Nacho Jeffery Glucose [Mass/Vol] 143 mg/dL Normal [facility] Comment on above: Performed By: #### A 1C #### [facility] [address] [place] [address] Dr. Nacho Jeffery HbA1c (Bld) [Mass fraction] 6.6 % Critically high 4.5-6.2 [facility] Comment on above: Performed By: #### A 1C #### [facility] [address] [place], [place] [address] Dr. Nacho Jfefery LIPID PROFILEon 11-09-2022 CHOL-HDL RATIO NORM SEE BELOW Normal [facility] Comment on above: Result Comment: 3.3 - 4.4 LOW RISK 4.4 - 7.1 AVERAGE RISK 7.1 - 11.0 MODERATE RISK >11.0 HIGH RISK Performed By: #### M G, URIC, RENAL #### [facility] [address] [place], [place] [address] Dr. Nacho Jeffery Cholesterol [Mass/Vol] 141 mg/dL Normal <=200 [facility] Comment on above: Performed By: #### M G, URIC, RENAL #### [facility] [address] [address] [address] Nacho Jeffery Cholesterol in HDL [Mass/Vol] 59 mg/dL Normal 40-60 [facility] Comment on above: Performed By: #### M G, URIC, RENAL #### [facility] [address] [address] [address] Nacho Jeffery Cholesterol in LDL [Mass/Vol] 46.2 mg/dL Normal [facility] Comment on above: Performed By: #### M G, URIC, RENAL #### [facility] [address] [place], [place] [address] Dr. Nacho Jeffery Cholesterol.total/Ch olesterol in HDL [Mass ratio] 2.4 {ratio} Normal [facility] Comment on above: Performed By: #### M G, URIC, RENAL #### [facility] [address] [place], [place] [address] Dr. Nacho Jeffery HDL NORMAL > or = 60 mg/dl - LOW CARDIOVASCULAR RISK <40 mg/dl - HIGH CARDIOVASCULAR RISK Normal [facility] Comment on above: Performed By: #### M G, URIC, RENAL #### [facility] [address] [address] [address] Nacho Jeffery LDL CALC NORMAL SEE BELOW Normal [facility] Comment on above: Result Comment: <100 mg/dl OPTIMAL 100 - 129 mg/dl NEAR OR ABOVE OPTIMAL 130 - 159 mg/dl BORDERLINE HIGH 160 - 189 mg/dl HIGH >190 mg/dl VERY HIGH Performed By: #### M Jamarcus, URIC, RENAL #### [facility] [address] [address] [address] Nacho Jeffery Triglyceride [Mass/Vol] 179 mg/dL Critically high <=150 [facility] Comment on above: Performed By: #### M Jamarcus, URIC, RENAL #### [facility] [address] [address] [address] Nacho Jeffery VLDL CALC 35.8 mg/dL Normal [facility] Comment on above: Performed By: #### M Jamarcus, URIC, RENAL #### [facility] [address] [address] [address] Nacho Jeffery PROF 14(COMP METB)on 022 Albumin [Mass/Vol] 3.2 g/dL Critically low 3.4-5.0 [facility] Comment on above: Performed By: #### M Jamarcus, URIC, RENAL #### [facility] [address] [address] [address] Nacho Jeffery Albumin/Globulin [Mass ratio] 0.8 {ratio} Normal [facility] Comment on above: Performed By: #### M Jamarcus, URIC, RENAL #### [facility] [address] [address] [address] Nacho Jeffery ALP [Catalytic activity/Vol] 109 U/L Normal 46-116 [facility] Comment on above: Performed By: #### M G, URIC, RENAL #### [facility] [address] [address] [address] Nacho Jeffery ALT [Catalytic activity/Vol] 38 U/L Normal 14-59 [facility] Comment on above: Performed By: #### M G, URIC, RENAL #### [facility] [address] [address] [address] Nacho Jeffery Anion gap [Moles/Vol] 13.7 mmol/L Normal [facility] Comment on above: Performed By: #### M G, URIC, RENAL #### [facility] [address] [address] [address] Nacho Jeffery AST [Catalytic activity/Vol] 27 U/L Normal 15-37 [facility] Comment on above: Performed By: #### M G, URIC, RENAL #### [facility] [address] [address] [address] Nacho Jeffery Bilirubin [Mass/Vol] 0.4 mg/dL Normal 0.2-1.0 [facility] Comment on above: Performed By: #### M G, URIC, RENAL #### [facility] [address] [address] [address] Nacho Jeffery Calcium [Mass/Vol] 9.2 mg/dL Normal 8.5-10.1 [facility] Comment on above: Performed By: #### M G, URIC, RENAL #### [facility] [address] [address] [address] Nacho Jeffery Chloride [Moles/Vol] 105 mmol/L Normal 98-107 [facility] Comment on above: Performed By: #### M G, URIC, RENAL #### [facility] [address] [address] [address] Nacho Jeffery CO2 [Moles/Vol] 29.5 mmol/L Normal 21.0-32.0 [facility] Comment on above: Performed By: #### M G, URIC, RENAL #### [facility] [address] [address] [address] Nacho Jeffery Creatinine [Mass/Vol] 1.62 mg/dL Critically high 0.55-1.02 [facility] Comment on above: Performed By: #### M G, URIC, RENAL #### [facility] [address] [address] [address] Nacho Jeffery EGFR-AF [place] 37 mL/min/1.73m2 Critically low >=60 [facility] Comment on above: Performed By: #### M G, URIC, RENAL #### [facility] [address] [address] [address] Nacho Jeffery EGFR-NON AF [place] 31 mL/min/1.73m2 Critically low >=60 [facility] Comment on above: Performed By: #### M G, URIC, RENAL #### [facility] [address] [place] [address] Dr. Nacho Jeffery Globulin (S) [Mass/Vol] 3.8 g/dL Normal [facility] Comment on above: Performed By: #### M G, URIC, RENAL #### [facility] [address] [place] [address] Dr. Nacho Jeffery Glucose [Mass/Vol] 102 mg/dL Normal 74-106 [facility] Comment on above: Performed By: #### M G, URIC, RENAL #### [facility] [address] [place] [address] Dr. Nacho Jeffery Potassium [Moles/Vol] 4.2 mmol/L Normal 3.5-5.1 [facility] Comment on above: Performed By: #### M G, URIC, RENAL #### [facility] [address] [place] [address] Dr. Nacho Jeffery Protein [Mass/Vol] 7.0 g/dL Normal 6.4-8.2 [facility] Comment on above: Performed By: #### M G, URIC, RENAL #### [facility] [address] [place] [address] Dr. Nacho Jeffery Sodium [Moles/Vol] 144 mmol/L Normal 136-145 [facility] Comment on above: Performed By: #### M G, URIC, RENAL #### [facility] [address] [place] [address] Dr. Nacho Jeffery Urea nitrogen [Mass/Vol] 45.0 mg/dL Critically high 7.0-18.0 [facility] Comment on above: Performed By: #### M G, URIC, RENAL #### [facility] [address] [place] [address] Dr. Nacho Jeffery Urea nitrogen/Creatinine [Mass ratio] 27.8 mg/mg Normal [facility] Comment on above: Performed By: #### M G, URIC, RENAL #### [facility] [address] [address] [address] Nacho Jeffery OSMOLALITY URINEon Osmolality, Urine 466 mOsmol/kg Normal [facility] Comment on above: Result Comment: 24 h r : 300 - 900 Random: 50 - 1400 After 12hr fluid restriction: >850 Performed By: #### M G, URIC, RENAL #### [facility] [address] [address] [address] Nacho Jeffery PTH INTACTon 07-13-2022 PTH, Intact 84 pg/mL Critically high 15-65 [facility] Comment on above: Performed By: #### P THINT #### [facility] [address] [address] [address] Nacho Jeffery VIT D 25-OH LABCORPon 2021 Vitamin D, 25-Hydroxy 34.7 ng/mL Normal 30.0-100.0 [facility] Comment on above: Result Comment: Radha min D deficiency has been defined by the [place] [employer] and an Endocrine Society practice guideline as a level of serum 25-OH vitamin D less than 20 ng/mL (1,2). The Endocrine Society went on to further define vitamin D insufficiency as a level between 21 and 29 ng/mL (2). 1. IOM ([place] [employer]). 2010. Dietary reference intakes for calcium and D. [place]: The National Academies Press. 2. Magdiel PRUETT, Kb [place], Evens PEPPER, et al. Evaluation, treatment, and prevention of vitamin D deficiency: an Endocrine Society clinical practice guideline. JCEM. 2010; 96(7):1911-30. Performed By: #### M G, URIC, RENAL #### [facility] [address] [address] [address] Nacho Jeffery HEMOGRAM AND PLATELon 2021 Hematocrit (Bld) [Volume fraction] 35.5 % Critically low 36.0-48.0 [facility] Comment on above: Performed By: #### M G, URIC, RENAL #### [facility] [address] [address] [address] Nacho Jeffery Hemoglobin (Bld) [Mass/Vol] 11.5 g/dL Critically low 12.0-16.0 [facility] Comment on above: Performed By: #### M G, URIC, RENAL #### [facility] [address] [place] [address] Dr. Nacho Jeffery MCH (RBC) [Entitic mass] 30.6 pg Normal 26.7-34.0 [facility] Comment on above: Performed By: #### M G, URIC, RENAL #### [facility] [address] [place] [address] Dr. Nacho Jeffery MCHC (RBC) [Mass/Vol] 32.4 g/dL Normal 29.9-35.2 [facility] Comment on above: Performed By: #### M G, URIC, RENAL #### [facility] [address] [place] [address] Dr. Nacho Jeffery MCV (RBC) [Entitic vol] 94.4 fL Normal 81.0-99.0 [facility] Comment on above: Performed By: #### M G, URIC, RENAL #### [facility] [address] [place] [address] Dr. Nacho Jeffery PLT 192 103/ul Normal 150-450 [facility] Comment on above: Performed By: #### M G, URIC, RENAL #### [facility] [address] [place] [address] Dr. Nacho Jeffery RBC 3.76 106/ul Critically low 4.20-5.40 [facility] Comment on above: Performed By: #### M G, URIC, RENAL #### [facility] [address] [place] [address] Dr. Nacho Jeffery WBC 6.1 103/ul Normal 4.0-11.0 [facility] Comment on above: Performed By: #### M G, URIC, RENAL #### [facility] [address] [place] [address] Dr. Nacho Jeffery MAGNESIUMon 07-12-2022 Magnesium [Mass/Vol] 1.3 mg/dL Critically low 1.8-2.4 [facility] Comment on above: Performed By: #### U CHRISTOFER, MG, RENAL #### [facility] [address] [place] [address] Dr. Nacho Jeffery RENAL FUNCTION PANELon 07-12 Albumin [Mass/Vol] 3.3 g/dL Critically low 3.4-5.0 [facility] Comment on above: Performed By: #### U CHRISTOFER, MG, RENAL #### [facility] [address] [place] [address] Dr. Nacho Jeffery Calcium [Mass/Vol] 9.1 mg/dL Normal 8.5-10.1 [facility] Comment on above: Performed By: #### U CHRISTOFER, MG, RENAL #### [facility] [address] [place] [address] Dr. Nacho Jeffery Chloride [Moles/Vol] 104 mmol/L Normal 98-107 [facility] Comment on above: Performed By: #### U CHRISTOFER, MG, RENAL #### [facility] [address] [place] [address] Dr. Nacho Jeffery CO2 [Moles/Vol] 31.7 mmol/L Normal 21.0-32.0 [facility] Comment on above: Performed By: #### U CHRISTOFER, MG, RENAL #### [facility] [address] [place] [address] Dr. Nacho Jeffery Creatinine [Mass/Vol] 1.52 mg/dL Critically high 0.55-1.02 [facility] Comment on above: Performed By: #### U CHRISTOFER, MG, RENAL #### [facility] [address] [place] [address] Dr. Nacho Jeffery EGFR-AF [place] 40 mL/min/1.73m2 Critically low >=60 [facility] Comment on above: Performed By: #### U CHRISTOFER, MG, RENAL #### [facility] [address] [place] [address] Dr. Nacho Jeffery EGFR-NON AF [place] 33 mL/min/1.73m2 Critically low >=60 [facility] Comment on above: Performed By: #### U CHRISTOFER, MG, RENAL #### [facility] [address] [place] [address] Dr. Nacho Jeffery Glucose [Mass/Vol] 221 mg/dL Critically high 74-106 [facility] Comment on above: Performed By: #### U CHRISTOFER, MG, RENAL #### [facility] [address] [place] [address] Dr. Nacho Jeffery Phosphate [Mass/Vol] 3.8 mg/dL Normal 2.6-4.7 [facility] Comment on above: Performed By: #### U CHRISTOFER, MG, RENAL #### [facility] [address] [place] [address] Dr. Nacho Jeffery Potassium [Moles/Vol] 4.1 mmol/L Normal 3.5-5.1 [facility] Comment on above: Performed By: #### U CHRISTOFER, MG, RENAL #### [facility] [address] [place] [address] Dr. Nacho Jeffery Sodium [Moles/Vol] 143 mmol/L Normal 136-145 [facility] Comment on above: Performed By: #### U CHRISTOFER, MG, RENAL #### [facility] [address] [place] [address] Dr. Nacho Jeffery Urea nitrogen [Mass/Vol] 45.0 mg/dL Critically high 7.0-18.0 [facility] Comment on above: Performed By: #### U CHRISTOFER, MG, RENAL #### [facility] [address] [place] [address] Dr. Nacho Jeffery UA RANDOM W/MICROSCOPICon BACTERIA NONE SEEN Normal NONE SEEN [facility] Comment on above: Performed By: #### M G, URIC, RENAL #### [facility] [address] [place] [address] Dr. Nacho Jeffery Bilirubin Ql (U) Negative Normal NEGATIVE [facility] Comment on above: Performed By: #### M G, URIC, RENAL #### [facility] [address] [place] [address] Dr. Nacho Jeffery CAST NONE SEEN Normal NONE SEEN [facility] Comment on above: Performed By: #### M G, URIC, RENAL #### [facility] [address] [place] [address] Dr. Nacho Jeffery Clarity (U) CLEAR Normal CLEAR [facility] Comment on above: Performed By: #### M G, URIC, RENAL #### [facility] [address] [address] [address] Nacho Jeffery Color (U) LT. YELLOW Normal YELLOW [facility] Comment on above: Performed By: #### M G, URIC, RENAL #### [facility] [address] [address] [address] Nacho Jeffery Crystals LM Nom (Urine sed) NONE SEEN Normal NONE SEEN [facility] Comment on above: Performed By: #### M G, URIC, RENAL #### [facility] [address] [address] [address] Nacho Jeffery Epithelial cells LM Ql (Urine sed) FEW Abnormal NONE SEEN /RARE [facility] Comment on above: Performed By: #### M G, URIC, RENAL #### [facility] [address] [place] [address] Dr. Nacho Jeffery Glucose Ql (U) Negative Normal NEGATIVE [facility] Comment on above: Performed By: #### M G, URIC, RENAL #### [facility] [address] [address] [address] Nacho Jeffery Hemoglobin Ql (U) Negative Normal NEGATIVE [facility] Comment on above: Performed By: #### M G, URIC, RENAL #### [facility] [address] [place] [address] Dr. Nacho Jeffery Ketones Ql (U) Negative Normal NEGATIVE [facility] Comment on above: Performed By: #### M G, URIC, RENAL #### [facility] [address] [address] [address] Nacho Jeffery LEUKOCYTES TRACE Abnormal NEGATIVE [facility] Comment on above: Performed By: #### M G, URIC, RENAL #### [facility] [address] [address] [address] Nacho Jeffery MUCOUS NONE SEEN Normal NONE SEEN [facility] Comment on above: Performed By: #### M G, URIC, RENAL #### [facility] [address] [address] [address] Nacho Jeffery Nitrite Ql (U) Negative Normal NEGATIVE [facility] Comment on above: Performed By: #### M G, URIC, RENAL #### [facility] [address] [place] [address] Dr. Nacho Jeffery pH (U) 6.0 [pH] Normal 5-9 [facility] Comment on above: Performed By: #### M G, URIC, RENAL #### [facility] [address] [place] [address] Dr. Nacho Jeffery RBC NONE SEEN Abnormal 0-2 [facility] Comment on above: Performed By: #### M G, URIC, RENAL #### [facility] [address] [place] [address] Dr. Nacho Jeffery SPEC GRAVITY 1.015 Normal 1.005-<=1.025 [facility] Comment on above: Performed By: #### M G, URIC, RENAL #### [facility] [address] [place] [address] Dr. Nacho Jeffery UA PROTEIN Negative Normal NEGATIVE/ TRACE [facility] Comment on above: Performed By: #### M G, URIC, RENAL #### [facility] [address] [place] [address] Dr. Nacho Jeffery Urobilinogen Qn (U) 0.2 {Zuleyka'U}/dL Normal 0.2 - 1. 0 [facility] Comment on above: Performed By: #### M G, URIC, RENAL #### [facility] [address] [place] [address] Dr. Nacho Jeffery WBC 2-5 Abnormal NONE SEEN [facility] Comment on above: Performed By: #### M G, URIC, RENAL #### [facility] [address] [place] [address] Dr. Nacho Jeffery URIC ACID SERUMon 07-12-2022 Urate [Mass/Vol] 7.9 mg/dL Critically high 2.6-6.0 [facility] Comment on above: Performed By: #### U CHRISTOFER, MG, RENAL #### [facility] [address] [place] [address] Dr. Nacho Jeffery URINE T PROTEIN CREAT RATIOo n 07-12-2022 Protein (U) [Mass/Vol] 17.5 mg/dL Critically high <=12.0 [facility] Comment on above: Performed By: #### M Jamarcus URIC, RENAL #### [facility] [address] [place], [place] [address] Dr. Nacho Jeffery UR PROT CREAT RAT 0.29 Normal [facility] Comment on above: Performed By: #### M Jamarcus, URIC, RENAL #### [facility] [address] [place], [place] [address] Dr. Nacho Jeffery URINE CREAT 60.37 mg/dL Normal 20.00-300.00 [facility] Comment on above: Performed By: #### M RENEA Ricketts, RENAL #### [facility] [address] [place], [place] [address] Dr. Nacho Jeffery ALBUMIN, RANDOM URINE W/CREA TININEon 05-11-2022 ALBUMIN, URINE 0.5 mg/dL Normal See Note: [facility] Comment on above: Result Comment: Refe rence Range: Reference Range Not established Performed By: #### 4 96, 7600, 6517, 16689 #### [facility] [place] [address] [employer]ting [employer] Manager: Mauricio Kern MD ALBUMIN/CREATININE RATIO, RANDOM URINE [...] Performed By: #### 4 96, 7600, 6517, [id number] #### [facility] [address], [address] [place] [address] Betting Agency Manager: Mauricio Kern MD Creatinine (U) [Mass/Vol] 74 mg/dL Normal 20-275 [facility] Comment on above: Performed By: #### 4 96, 7600, 6517, [id number] #### [facility] of [address], [address] [place] [address] Betting Agency Manager: Mauricio Kern MD BASIC METABOLIC PANELon 04-14 GLUCOSE Normal [facility] Comment on above: Result Comment: TEST NOT PERFORMED No specimen received. Performed By: #### 4 96, 7600, 6517, [id number] #### [facility] [facility] [address], [address] [place] [address] Betting Agency Manager: Mauricio Kern MD HEMOGLOBIN A1con 05-11-2022 HEMOGLOBIN A1c Normal [facility] Comment on above: Result Comment: TEST NOT PERFORMED No specimen received. Performed By: #### 4 96, 7600, 6517, [id number] #### [facility] [address], [address] [place] [address] Betting Agency Manager: Mauricio Kern MD LIPID PANEL, STANDARDon 04-14 CHOL/HDLC RATIO Normal [facility] Comment on above: Result Comment: TEST NOT PERFORMED No specimen received. Performed By: #### 4 96, 7600, 6517, [id number] #### [facility] [address], [address] [place] [address] Betting Agency Manager: Mauricio Kern MD CHOLESTEROL, TOTAL Normal [facility] Comment on above: Result Comment: TEST NOT PERFORMED No specimen received. Performed By: #### 4 96, 7600, 6517, [id number] #### [facility] [address], [address] [place] [address] Betting Agency Manager: Mauricio Kern MD HDL CHOLESTEROL Normal [facility] Comment on above: Result Comment: TEST NOT PERFORMED No specimen received. Performed By: #### 4 96, 7600, 6517, [id number] #### [facility] [address], [address] [place] [address] Betting Agency Manager: Mauricio Kern MD LDL-CHOLESTEROL Normal [facility] Comment on above: Result Comment: TEST NOT PERFORMED No specimen received. Performed By: #### 4 96, 7600, 6517, [id number] #### [facility] [address], [address] [place] [address] Betting Agency Manager: Mauricio Kern MD NON HDL CHOLESTEROL Normal [facility] Comment on above: Result Comment: TEST NOT PERFORMED No specimen received. Performed By: #### 4 96, 7600, 6517, [id number] #### [facility] [address], [address] [place] [address] Betting Agency Manager: Mauricio Kern MD TRIGLYCERIDES Normal [facility] Comment on above: Result Comment: TEST NOT PERFORMED No specimen received. Performed By: #### 4 96, 7600, 6517, [id number] #### [facility] [place] [address] Betting Agency Manager: Mauricio Kern MD BASIC METABOLIC PANELon 06-2 Calcium [Mass/Vol] 9.1 mg/dL Normal 8.6-10.4 [facility] Comment on above: Performed By: #### 1 0165, 496, 7600 #### [facility] [place] [address] Betting Agency Manager: Mauricio Kern MD Chloride [Moles/Vol] 105 mmol/L Normal 98-110 [facility] Comment on above: Performed By: #### 1 0165, 496, 7600 #### [facility] [place] [address] Betting Agency Manager: Mauricio Kern MD CO2 [Moles/Vol] 25 mmol/L Normal 20-32 [facility] Comment on above: Performed By: #### 1 0165, 496, 7600 #### [facility] [place] [address] Betting Agency Manager: Mauricio Kern MD Creatinine [Mass/Vol] 1.73 mg/dL High 0.60-0.93 [facility] Comment on above: Result Comment: For patients >49 years of age, the reference limit for Creatinine is approximately 13% higher for people identified as -English. Performed By: #### 1 0165, 496, 7600 #### [facility] [place] [address] [place] [address] Betting Agency Manager: Mauricio Kern MD eGFR NON-AFR. [place] 28 mL/min/1.73m2 Low > OR = 60 [facility] Comment on above: Performed By: #### 1 0165, 496, 7600 #### [facility] [place] [address] Betting Agency Manager: Mauricio Kern MD GFR/1.73 sq M.predicted among blacks MDRD (S/P/Bld) [Vol rate/Area] 32 mL/min/{1.73_m2} Low > OR = 60 [facility] Comment on above: Performed By: #### 1 0165, 496, 7600 #### [facility] [place] [address] Betting Agency Manager: Mauricio Kern MD Glucose [Mass/Vol] 137 mg/dL High 65-99 [facility] Comment on above: Result Comment: Fasting reference interval For someone without known diabetes, a glucose value >125 mg/dL indicates that they may have diabetes and this should be confirmed with a follow-up test. Performed By: #### 1 0165, 496, 7600 #### [facility] [place] [address] Betting Agency Manager: Mauricio Kern MD Potassium [Moles/Vol] 4.6 mmol/L Normal 3.5-5.3 [facility] Comment on above: Performed By: #### 1 0165, 496, 7600 #### [facility] [place] [address] Betting Agency Manager: Mauricio Kern MD Sodium [Moles/Vol] 142 mmol/L Normal 135-146 [facility] Comment on above: Performed By: #### 1 0165, 496, 7600 #### [facility] [place] [address] Betting Agency Manager: Mauricio Kern MD Urea nitrogen [Mass/Vol] 65 mg/dL High 7-25 [facility] Comment on above: Performed By: #### 1 0165, 496, 7600 #### [facility] [address], [address] [place] [address] Betting Agency Manager: Mauricio Kern MD Urea nitrogen/Creatinine [Mass ratio] 38 mg/mg High 6- [facility] Comment on above: Performed By: #### 1 0165, 496, 7600 #### [facility] [address], [address] [place] [address] Betting Agency Manager: Mauricio Kern MD HEMOGLOBIN A1con 05-04-2022 HEMOGLOBIN [...] 1 0165, 496, 7600 #### [facility] [address], [address] [place] [address] Betting Agency Manager: Mauricio Kern MD LIPID PANEL, STANDARDon 04-13 Cholesterol [Mass/Vol] 163 mg/dL Normal <200 [facility] Comment on above: Order Comment: FASTI NG:YES PATIENT UNABLE TO VOID; ADVISED TO RETURN FOR COLLECTION. FASTING: YES Performed By: #### 1 0165, 496, 7600 #### [facility] [address], [address] [place] [address] Betting Agency Manager: Mauricio Kern MD Cholesterol in HDL [Mass/Vol] 51 mg/dL Normal > OR = 50 [facility] Comment on above: Order Comment: FASTI NG:YES PATIENT UNABLE TO VOID; ADVISED TO RETURN FOR COLLECTION. FASTING: YES Performed By: #### 1 0165, 496, 7600 #### [facility] [address], [address] [place] [address] Betting Agency Manager: Mauricio Kern MD Cholesterol in LDL [Mass/Vol] [...] LDL-C. Sean SS et al. SHRUTHI. 2013;310(19): 5046-0922 (http://education.[employer]/faq/YYC977) Performed By: #### 1 0160, 057, 6692 #### [facility] [address], [address] [place] [address] Betting Agency Manager: Mauricio Kern MD Cholesterol.total/Ch olesterol in HDL [Mass ratio] 3.2 {ratio} Normal <5.0 [facility] Comment on above: Order Comment: FASTI NG:YES PATIENT UNABLE TO VOID; ADVISED TO RETURN FOR COLLECTION. FASTING: YES Performed By: #### 1 0166, 497, 5780 #### [facility] [address], [address] [place] [address] Betting Agency Manager: Mauricio Kern MD NON HDL CHOLESTEROL 112 [...] a therapeutic option. Performed By: #### 1 0162, 828, 2590 #### [facility] [address], [address] [place] [address] Betting Agency Manager: Mauricio Kern MD Triglyceride [Mass/Vol] 181 mg/dL High <150 [facility] Comment on above: Order Comment: FASTI NG:YES PATIENT UNABLE TO VOID; ADVISED TO RETURN FOR COLLECTION. FASTING: YES Performed By: #### 1 5935, 656, 6490 #### [facility] [address], [address] [place] [address] Betting Agency Manager: Mauricio Kern MD PTH INTACTon 03-31-2022 PTH, Intact 111 pg/mL Critically high 15-65 [facility] Comment on above: Performed By: #### M G, URIC, RENAL #### [facility] [address] [place] [address] Dr. Nacho Jeffery FERRITINon 03-30-2022 Ferritin [Mass/Vol] 479.0 ng/mL Critically high 8.0-252.0 [facility] Comment on above: Performed By: #### M G, URIC, RENAL #### [facility] [address] [place] [address] Dr. Nacho Jeffery HEMOGRAM AND PLATELon 2021 Hematocrit (Bld) [Volume fraction] 38.1 % Normal 36.0-48.0 [facility] Comment on above: Performed By: #### M G, URIC, RENAL #### [facility] [address] [place] [address] Dr. Nacho Jeffery Hemoglobin (Bld) [Mass/Vol] 12.9 g/dL Normal 12.0-16.0 [facility] Comment on above: Performed By: #### M G, URIC, RENAL #### [facility] [address] [place] [address] Dr. Nacho Jeffery MCH (RBC) [Entitic mass] 32.8 pg Normal 26.7-34.0 [facility] Comment on above: Performed By: #### M G, URIC, RENAL #### [facility] [address] [place] [address] Dr. Nacho Jeffery MCHC (RBC) [Mass/Vol] 33.9 g/dL Normal 29.9-35.2 [facility] Comment on above: Performed By: #### M G, URIC, RENAL #### [facility] [address] [place] [address] [address] Nacho Jeffery MCV (RBC) [Entitic vol] 96.9 fL Normal 81.0-99.0 [facility] Comment on above: Performed By: #### M G, URIC, RENAL #### [facility] [address] [place] [address] [address] Nacho Jeffery PLT 191 103/ul Normal 150-450 [facility] Comment on above: Performed By: #### M G, URIC, RENAL #### [facility] [address] [place] [address] [address] Nacho Jeffery RBC 3.93 106/ul Critically low 4.20-5.40 [facility] Comment on above: Performed By: #### M G, URIC, RENAL #### [facility] [address] [place] [address] [address] Nacho Jeffery WBC 7.2 103/ul Normal 4.0-11.0 [facility] Comment on above: Performed By: #### M G, URIC, RENAL #### [facility] [address] [place] [address] [address] Nacho Jeffery IRON AND TIBCon 03-30-2022 % SATURATION 21.6 % Normal [facility] Comment on above: Performed By: #### M G, URIC, RENAL #### [facility] [address] [place] [address] [address] Nacho Jeffery Iron [Mass/Vol] 63.0 ug/dL Normal 50.0-170.0 [facility] Comment on above: Performed By: #### M G, URIC, RENAL #### [facility] [address] [place] [address] [address] Nacho Jeffery TIBC DIRECT 292.0 ug/dL Normal 250.0-450.0 [facility] Comment on above: Performed By: #### M G, URIC, RENAL #### [facility] [address] [place] [address] [address] Nacho Jeffery MAGNESIUMon 03-30-2022 Magnesium [Mass/Vol] 1.7 mg/dL Critically low 1.8-2.4 [facility] Comment on above: Performed By: #### M G, URIC, RENAL #### [facility] [address] [place] [address] [address] Nacho Jeffery RENAL FUNCTION PANELon 03-30 Albumin [Mass/Vol] 3.4 g/dL Normal 3.4-5.0 [facility] Comment on above: Performed By: #### M G, URIC, RENAL #### [facility] [address] [place] [address] Dr. Nacho Jeffery Calcium [Mass/Vol] 9.3 mg/dL Normal 8.5-10.1 [facility] Comment on above: Performed By: #### M G, URIC, RENAL #### [facility] [address] [place] [address] Dr. Nacho Jeffery Chloride [Moles/Vol] 102 mmol/L Normal 98-107 [facility] Comment on above: Performed By: #### M G, URIC, RENAL #### [facility] [address] [place] [address] Dr. Nacho Jeffery CO2 [Moles/Vol] 31.7 mmol/L Normal 21.0-32.0 [facility] Comment on above: Performed By: #### M G, URIC, RENAL #### [facility] [address] [place] [address] Dr. Nacho Jeffery Creatinine [Mass/Vol] 2.05 mg/dL Critically high 0.55-1.02 [facility] Comment on above: Performed By: #### M G, URIC, RENAL #### [facility] [address] [place] [address] Dr. Nacho Jeffery EGFR-AF [place] 28 mL/min/1.73m2 Critically low >=60 [facility] Comment on above: Performed By: #### M G, URIC, RENAL #### [facility] [address] [place] [address] Dr. Nacho Jeffery EGFR-NON AF [place] 23 mL/min/1.73m2 Critically low >=60 [facility] Comment on above: Performed By: #### M G, URIC, RENAL #### [facility] [address] [place] [address] [address] Nacho Jeffery Glucose [Mass/Vol] 194 mg/dL Critically high 74-106 [facility] Comment on above: Performed By: #### M G, URIC, RENAL #### [facility] [address] [place] [address] Dr. Nacho Jeffery Phosphate [Mass/Vol] 3.2 mg/dL Normal 2.6-4.7 [facility] Comment on above: Performed By: #### M G, URIC, RENAL #### [facility] [address] [place] [address] Dr. Nacho Jeffery Potassium [Moles/Vol] 4.6 mmol/L Normal 3.5-5.1 [facility] Comment on above: Performed By: #### M G, URIC, RENAL #### [facility] [address] [place] [address] Dr. Nacho Jeffery Sodium [Moles/Vol] 141 mmol/L Normal 136-145 [facility] Comment on above: Performed By: #### M G, URIC, RENAL #### [facility] [address] [place] [address] Dr. Nacho Jeffery Urea nitrogen [Mass/Vol] 64.0 mg/dL Critically high 7.0-18.0 [facility] Comment on above: Performed By: #### M G, URIC, RENAL #### [facility] [address] [place] [address] Dr. Nacho Jeffery UA RANDOM W/MICROSCOPICon BACTERIA NONE SEEN Normal NONE SEEN [facility] Comment on above: Performed By: #### M G, URIC, RENAL #### [facility] [address] [place] [address] Dr. Nacho Jeffery Bilirubin Ql (U) Negative Normal NEGATIVE [facility] Comment on above: Performed By: #### M G, URIC, RENAL #### [facility] [address] [place] [address] Dr. Nacho Jeffery CAST NONE SEEN Normal NONE SEEN [facility] Comment on above: Performed By: #### M G, URIC, RENAL #### [facility] [address] [place] [address] Dr. Nacho Jeffery Clarity (U) CLEAR Normal CLEAR [facility] Comment on above: Performed By: #### M G, URIC, RENAL #### [facility] [address] [place] [address] Dr. Nacho Jeffery Color (U) LT. YELLOW Normal YELLOW [facility] Comment on above: Performed By: #### M G, URIC, RENAL #### [facility] [address] [place] [address] Dr. Nacho Jeffery Crystals LM Nom (Urine sed) NONE SEEN Normal NONE SEEN [facility] Comment on above: Performed By: #### M G, URIC, RENAL #### [facility] [address] [place] [address] Dr. Nacho Jeffery Epithelial cells LM Ql (Urine sed) FEW Abnormal NONE SEEN /RARE [facility] Comment on above: Performed By: #### M G, URIC, RENAL #### [facility] [address] [place] [address] Dr. Nacho Jeffery Glucose Ql (U) Negative Normal NEGATIVE [facility] Comment on above: Performed By: #### M G, URIC, RENAL #### [facility] [address] [place] [address] Dr. Nacho Jeffery Hemoglobin Ql (U) Negative Normal NEGATIVE [facility] Comment on above: Performed By: #### M G, URIC, RENAL #### [facility] [address] [place] [address] Dr. Nacho Jeffery Ketones Ql (U) Negative Normal NEGATIVE [facility] Comment on above: Performed By: #### M G, URIC, RENAL #### [facility] [address] [place] [address] Dr. Nacho Jeffery LEUKOCYTES SMALL Abnormal NEGATIVE [facility] Comment on above: Performed By: #### M G, URIC, RENAL #### [facility] [address] [place] [address] Dr. Nacho Jeffery MUCOUS NONE SEEN Normal NONE SEEN [facility] Comment on above: Performed By: #### M G, URIC, RENAL #### [facility] [address] [place] [address] Dr. Nacho Jeffery Nitrite Ql (U) Negative Normal NEGATIVE [facility] Comment on above: Performed By: #### M G, URIC, RENAL #### [facility] [address] [place] [address] Dr. Nacho Jeffery pH (U) 5.5 [pH] Normal 5-9 [facility] Comment on above: Performed By: #### M G, URIC, RENAL #### [facility] [address] [place] [address] Dr. Nacho Jeffery RBC 0-2 Normal 0-2 [facility] Comment on above: Performed By: #### M G, URIC, RENAL #### [facility] [address] [place] [address] Dr. Nacho Jeffery SPEC GRAVITY 1.015 Normal 1.005-<=1.025 [facility] Comment on above: Performed By: #### M G, URIC, RENAL #### [facility] [address] [place] [address] Dr. Nacho Jeffery UA PROTEIN Negative Normal NEGATIVE/ TRACE [facility] Comment on above: Performed By: #### M G, URIC, RENAL #### [facility] [address] [place] [address] Dr. Nacho Jeffery Urobilinogen Qn (U) 0.2 {Zuleyka'U}/dL Normal 0.2 - 1. 0 [facility] Comment on above: Performed By: #### M G, URIC, RENAL #### [facility] [address] [place] [address] Dr. Nacho Jeffery WBC 5-10 Abnormal NONE SEEN [facility] Comment on above: Performed By: #### M G, URIC, RENAL #### [facility] [address] [place] [address] Dr. Nacho Jeffery URIC ACID SERUMon 03-30-2022 Urate [Mass/Vol] 7.0 mg/dL Critically high 2.6-6.0 [facility] Comment on above: Performed By: #### M G, URIC, RENAL #### [facility] [address] [address] [address] Nacho Jeffery URINE T PROTEIN CREAT RATIOo n 03-30-2022 Protein (U) [Mass/Vol] 7.1 mg/dL Normal <=12.0 [facility] Comment on above: Performed By: #### U RTPCR #### [facility] [address] [place] [address] [address] Nacho Jeffery UR PROT CREAT RAT 0.06 Normal [facility] Comment on above: Performed By: #### U RTPCR #### [facility] [address] [address] [address] Nacho Jeffery URINE CREAT 113.23 mg/dL Normal 20.00-300.00 [facility] Comment on above: Performed By: #### U RTPCR #### [facility] [address] [place] [address] [address] Nacho Jeffery VITAMIN D 25 OHon 03-30-2022 VIT D 25-OH 57.4 ng/mL Normal [facility] Comment on above: Performed By: #### M G, URIC, RENAL #### [facility] [address] [place] [address] [address] Nacho Jeffery VIT D RANGES SEE BELOW Normal [facility] Comment on above: Result Comment: <20 ng/mL Vit D deficient 20 - <30 ng/mL Vit D insufficient 30 - 100 ng/mL Vit D sufficient >100 ng/mL Potential Toxicity Performed By: #### M G, URIC, RENAL #### [facility] [address] [place] [address] [address] Nacho Jeffery COMPREHENSIVE METABOLIC PANE Jared 08-30-2021 Albumin [Mass/Vol] 3.7 g/dL Normal 3.6-5.1 [facility] Comment on above: Performed By: #### 1 786, 7500 #### [facility] [address], [address] [place] [id number] [employer] Manager: Mauricio Kern MD Albumin/Globulin [Mass ratio] 1.4 {ratio} Normal 1.0-2.5 [facility] Comment on above: Performed By: #### 1 023, 7600 #### [facility] of [address], [address] [place] [address] Betting Agency Manager: Mauricio Kern MD ALP [Catalytic activity/Vol] 98 U/L Normal 37-153 [facility] Comment on above: Performed By: #### 1 0231, 7600 #### [facility] of [address], [address] [place] [address] Betting Agency Manager: Mauricio Kern MD ALT [Catalytic activity/Vol] 23 U/L Normal 6-29 [facility] Comment on above: Performed By: #### 1 023, 7600 #### [facility] of [place] [address] Betting Agency Manager: Mauricio Kern MD AST [Catalytic activity/Vol] 22 U/L Normal 10-35 [facility] Comment on above: Performed By: #### 1 023, 7600 #### [facility] [place] [address] Betting Agency Manager: Mauricio Kern MD Bilirubin [Mass/Vol] 0.4 mg/dL Normal 0.2-1.2 [facility] Comment on above: Performed By: #### 1 023, 7600 #### [facility] [place] [address] Betting Agency Manager: Mauricio Kern MD Calcium [Mass/Vol] 9.2 mg/dL Normal 8.6-10.4 [facility] Comment on above: Performed By: #### 1 023, 7600 #### [facility] [place] [address] Betting Agency Manager: Mauricio Kern MD Chloride [Moles/Vol] 103 mmol/L Normal 98-110 [facility] Comment on above: Performed By: #### 1 0231, 7600 #### [facility] [place] [address] Betting Agency Manager: Mauricio Kern MD CO2 [Moles/Vol] 28 mmol/L Normal 20-32 [facility] Comment on above: Performed By: #### 1 023, 7600 #### [facility] [address], [address] [place] [address] Betting Agency Manager: Mauricio Kern MD Creatinine [Mass/Vol] 2.22 mg/dL High 0.60-0.93 [facility] Comment on above: Result Comment: For patients >49 years of age, the reference limit for Creatinine is approximately 13% higher for people identified as -English. Performed By: #### 1 230, 7600 #### [facility] [address], [address] [place] [address] Betting Agency Manager: Mauricio Kern MD eGFR NON-AFR. [place] 21 mL/min/1.73m2 Low > OR = 60 [facility] Comment on above: Performed By: #### 1 230, 7600 #### [facility] [place] [address] Betting Agency Manager: Maurciio Kern MD GFR/1.73 sq M.predicted among blacks MDRD (S/P/Bld) [Vol rate/Area] 24 mL/min/{1.73_m2} Low > OR = 60 [facility] Comment on above: Performed By: #### 1 230, 7600 #### [facility] [place] [address] Betting Agency Manager: Mauricio Kern MD Globulin (S) [Mass/Vol] 2.7 g/dL Normal 1.9-3.7 [facility] Comment on above: Performed By: #### 1 023, 7600 #### [facility] [place] [address] Betting Agency Manager: Mauricio Kern MD Glucose [Mass/Vol] 107 mg/dL High 65-99 [facility] Comment on above: Result Comment: Fasting reference interval For someone without known diabetes, a glucose value between 100 and 125 mg/dL is consistent with prediabetes and should be confirmed with a follow-up test. Performed By: #### 1 023, 7600 #### [facility] of [address], [address] [place] [address] Betting Agency Manager: Mauricio Kern MD Potassium [Moles/Vol] 4.7 mmol/L Normal 3.5-5.3 [facility] Comment on above: Performed By: #### 1 0231, 7600 #### [facility] [address], [address] [place] [address] Betting Agency Manager: Mauricio Kern MD Protein [Mass/Vol] 6.4 g/dL Normal 6.1-8.1 [facility] Comment on above: Performed By: #### 1 0231, 7600 #### [facility] of [place] [address] Betting Agency Manager: Mauricio Kern MD Sodium [Moles/Vol] 141 mmol/L Normal 135-146 [facility] Comment on above: Performed By: #### 1 0231, 7600 #### [facility] of [place] [address] Betting Agency Manager: Mauricio Kern MD Urea nitrogen [Mass/Vol] 69 mg/dL High 7-25 [facility] Comment on above: Performed By: #### 1 0231, 7600 #### [facility] of [place] [address] Betting Agency Manager: Mauricio Kern MD Urea nitrogen/Creatinine [Mass ratio] 31 mg/mg High 6-22 [facility] Comment on above: Performed By: #### 1 0231, 7600 #### [facility] of [place] [address] Betting Agency Manager: Mauricio Kern MD LIPID PANEL, [facility] 08-12 Cholesterol [Mass/Vol] 142 mg/dL Normal <200 [facility] Comment on above: Order Comment: FASTI NG:YES FASTING: YES Performed By: #### 1 0231, 7600 #### [facility] of [address], [address] [place] [address] Betting Agency Manager: Mauricio Kern MD Cholesterol in HDL [Mass/Vol] 47 mg/dL Low > OR = 50 [facility] Comment on above: Order Comment: FASTI NG:YES FASTING: YES Performed By: #### 1 0231, 7600 #### [facility] [address], [address] [place] [address] Betting [employer] Manager: Mauricio Kern MD Cholesterol in LDL [Mass/Vol] [...] LDL-C. Sean BREAUX et al. SHRUTHI. 2013;310(19): 3272-1691 (http://education.[employer]/faq/YAO029) Performed By: #### 1 023, 0 #### [facility] [address], [address] [place] [address] Betting Agency Manager: Mauricio Kern MD Cholesterol.total/Ch olesterol in HDL [Mass ratio] 3.0 {ratio} Normal <5.0 [facility] Comment on above: Order Comment: FASTI NG:YES FASTING: YES Performed By: #### 1 023, 7600 #### [facility] [address], [address] [place] [address] Betting Agency Manager: Mauricio Kern MD NON HDL CHOLESTEROL 95 mg/dL (calc) Normal <130 [facility] Comment on above: Order Comment: FASTI NG:YES FASTING: YES Result Comment: For patients with diabetes plus 1 major ASCVD risk factor, treating to a non-HDL-C goal of <100 mg/dL (LDL-C of <70 mg/dL) is considered a therapeutic option. Performed By: #### 1 0231, 7600 #### [facility] [address], [address] [place] [address] Betting Agency Manager: Mauricio Kern MD Triglyceride [Mass/Vol] 188 mg/dL High <150 [facility] Comment on above: Order Comment: FASTI NG:YES FASTING: YES Performed By: #### 1 0231, 7600 #### [facility] [address] [facility], [address] [place] [address] [employer] Manager: Mauricio Kern MD BASIC METABOLIC PANEL 03-12 Calcium [Mass/Vol] 10.0 mg/dL Normal 8.6-10.3 [facility] Comment on above: Performed By: #### 0 0071 #### [facility] [address] [place] [address], [facility] Chloride [Moles/Vol] 101 mmol/L Normal 98-107 [facility] Comment on above: Performed By: #### 0 0071 #### [facility] [address] [place] [address], [place] CO2 [Moles/Vol] 28 mmol/L Normal 21-31 [place] Comment on above: Performed By: #### 0 0071 #### [facility] [address] [place] [address], [place] Creatinine [Mass/Vol] 1.96 mg/dL High 0.60-1.20 [facility] Comment on above: Performed By: #### 0 0071 #### [facility] [address] [place] [id number], [facility] eGFR- 30 ml/min/1.73sq m Abnormal >[address] [facility] Comment on above: Result Comment: Calc ulation may not be valid for patients over 70 years Performed By: #### 0 0071 #### [facility] [address] [place] [address], [facility] eGFR- non- 24 ml/min/1.73sq m Abnormal >[address] [facility] Comment on above: Result Comment: Calc ulation may not be valid for patients over 70 years Performed By: #### 0 0071 #### [facility] [address] [place] [address], [place] Glucose [Mass/Vol] 171 mg/dL High 70-100 [facility] Comment on above: Performed By: #### 0 0071 #### [facility] [address] [place] [address], [place] Potassium [Moles/Vol] 3.9 mmol/L Normal 3.5-5.1 [facility] Comment on above: Performed By: #### 0 0071 #### [facility] [address] [place] [address], [place] Sodium [Moles/Vol] 139 mmol/L Normal 136-145 [facility] Comment on above: Performed By: #### 0 0071 #### [facility] [address] [place] [address], [place] Urea nitrogen [Mass/Vol] 66 mg/dL High 7-25 [facility] Comment on above: Performed By: #### 0 0071 #### [facility] [address] [place] [address], [facility] Cardiovascular Lab Reporton 03-30-2021 Cardiovascular Lab Report [facility] Patient Name: Adore Wolff [facility] MR #: [id number] Physician: Moe Parham, Department of M.D. Medicine Service Date: 03/30/2021 Division of Birthdate: 1940 Cardiology Room #: CC Adult Cardiovascular Services [facility] [address] [place], [place] [address] Cardiovascular Laboratory Report FINAL IMPRESSIONS: 1. Moderate [...] b.i.d., and continue angiotensin-convert ing enzyme inhibitor/receptor micki. 4. Follow up with [facility] [[email or web address]] Cardiology in the next 2 to 3 [...] the left radial artery was obtained. A 6-Albanian glide sheath was inserted without difficulty. Bilateral selective coronary angiography was performed using JL4 and a 4-Albanian 3DRC catheter. After reviewing the images and [...] Parham M.D. Date Trans: 03/30/2021 03:19 P/molly [id number] cc: Fernie Hackett M.D. [address] [place] [address] [facility] Vital Signs Date Time Vital Sign Value Performing Clinician Facility 01-16-2024 09:24-0500 Body height 165.1 cm Pfo 6 [facility] 01-16-2024 09:24-0500 Body mass index (BMI) [Ratio] 46.1 kg/m2 Pfo 6 [facility] 01-16-2024 09:24-0500 Body temperature 98.01 [degF] Pfo 6 [facility] 01-16-2024 09:24-0500 Body weight 125.65 kg Pfo 6 [facility] 01-16-2024 09:24-0500 Diastolic blood pressure 80 mm[Hg] Pfo 6 [facility] 01-16-2024 09:24-0500 Heart rate 71 /min Pfo 6 [facility] 01-16-2024 09:24-0500 Respiratory rate 18 /min Pfo 6 [facility] 01-16-2024 09:24-0500 SaO2% (BldA) [Mass fraction] 97 % Pfo 6 [facility] 01-16-2024 09:24-0500 Systolic blood pressure 180 mm[Hg] Pfo 6 [facility] 01-09-2024 09:36-0500 Body height 165.1 cm Pfo 3 [facility] 01-09-2024 09:36-0500 Body mass index (BMI) [Ratio] 46.1 kg/m2 Pfo 3 [facility] 01-09-2024 09:36-0500 Body temperature 97.9 [degF] Pfo 3 [facility] 01-09-2024 09:36-0500 Body weight 125.65 kg Pfo 3 [facility] 01-09-2024 09:36-0500 Diastolic blood pressure 75 mm[Hg] Pfo 3 [facility] 01-09-2024 09:36-0500 Heart rate 70 /min Pfo 3 [facility] 01-09-2024 09:36-0500 Respiratory rate 18 /min Pfo 3 [facility] 01-09-2024 09:36-0500 SaO2% (BldA) [Mass fraction] 97 % Pfo 3 [facility] 01-09-2024 09:36-0500 Systolic blood pressure 180 mm[Hg] Pfo 3 [facility] 01-02-2024 09:37-0500 Body temperature 98.01 [degF] Pfo 4 [facility] 01-02-2024 09:37-0500 Diastolic blood pressure 72 mm[Hg] Pfo 4 [facility] 01-02-2024 09:37-0500 Heart rate 62 /min Pfo 4 [facility] 01-02-2024 09:37-0500 Respiratory rate 18 /min Pfo 4 [facility] 01-02-2024 09:37-0500 SaO2% (BldA) [Mass fraction] 95 % Pfo 4 [facility] 01-02-2024 09:37-0500 Systolic blood pressure 184 mm[Hg] Pfo 4 [facility] 12-26-2023 09:37-0500 Body height 165.1 cm Pfo 4 [facility] 12-26-2023 09:37-0500 Body mass index (BMI) [Ratio] 46.1 kg/m2 Pfo 4 [facility] 12-26-2023 09:37-0500 Body temperature 97.7 [degF] Pfo 4 [facility] 12-26-2023 09:37-0500 Body weight 125.65 kg Pfo 4 [facility] 12-26-2023 09:37-0500 Diastolic blood pressure 64 mm[Hg] Pfo 4 [facility] 12-26-2023 09:37-0500 Heart rate 67 /min Pfo 4 [facility] 12-26-2023 09:37-0500 Respiratory rate 18 /min Pfo 4 [facility] 12-26-2023 09:37-0500 SaO2% (BldA) [Mass fraction] 96 % Pfo 4 [facility] 12-26-2023 09:37-0500 Systolic blood pressure 177 mm[Hg] Pfo 4 [facility] 12-19-2023 09:30-0500 Body height 165.1 cm Pfo 2 [facility] 12-19-2023 09:30-0500 Body mass index (BMI) [Ratio] 46.13 kg/m2 Pfo 2 [facility] 12-19-2023 09:30-0500 Body temperature 97.39 [degF] Pfo 2 [facility] 12-19-2023 09:30-0500 Body weight 125.74 kg Pfo 2 [facility] 12-19-2023 09:30-0500 Diastolic blood pressure 67 mm[Hg] Pfo 2 [facility] 12-19-2023 09:30-0500 Heart rate 67 /min Pfo 2 [facility] 12-19-2023 09:30-0500 Respiratory rate 18 /min Pfo 2 [facility] 12-19-2023 09:30-0500 SaO2% (BldA) [Mass fraction] 97 % Pfo 2 [facility] 12-19-2023 09:30-0500 Systolic blood pressure 196 mm[Hg] Pfo 2 [facility] 12-12-2023 09:25-0500 Body height 165.1 cm Pfo 2 [facility] 12-12-2023 09:25-0500 Body mass index (BMI) [Ratio] 45.43 kg/m2 Pfo 2 [facility] 12-12-2023 09:25-0500 Body temperature 97.5 [degF] Pfo 2 [facility] 12-12-2023 09:25-0500 Body weight 123.83 kg Pfo 2 [facility] 12-12-2023 09:25-0500 Diastolic blood pressure 71 mm[Hg] Pfo 2 [facility] 12-12-2023 09:25-0500 Heart rate 70 /min Pfo 2 [facility] 12-12-2023 09:25-0500 Respiratory rate 18 /min Pfo 2 [facility] 12-12-2023 09:25-0500 SaO2% (BldA) [Mass fraction] 98 % Pfo 2 [facility] 12-12-2023 09:25-0500 Systolic blood pressure 166 mm[Hg] Pfo 2 [facility] 11-28-2023 09:17-0500 Body height 165.1 cm Pfo 1 [facility] 11-28-2023 09:17-0500 Body mass index (BMI) [Ratio] 44.93 kg/m2 Pfo 1 [facility] 11-28-2023 09:17-0500 Body temperature 97.2 [degF] Pfo 1 [facility] 11-28-2023 09:17-0500 Body weight 122.47 kg Pfo 1 [facility] 11-28-2023 09:17-0500 Diastolic blood pressure 56 mm[Hg] Pfo 1 [facility] 11-28-2023 09:17-0500 Heart rate 79 /min Pfo 1 [facility] 11-28-2023 09:17-0500 Respiratory rate 18 /min Pfo 1 [facility] 11-28-2023 09:17-0500 SaO2% (BldA) [Mass fraction] 99 % Pfo 1 [facility] 11-28-2023 09:17-0500 Systolic blood pressure 156 mm[Hg] Pfo 1 [facility] 11-21-2023 10:01-0500 Body height 165.1 cm Pfo 1 [facility] 11-21-2023 10:01-0500 Body mass index (BMI) [Ratio] 44.6 kg/m2 Pfo 1 [facility] 11-21-2023 10:01-0500 Body temperature 97.81 [degF] Pfo 1 [facility] 11-21-2023 10:01-0500 Body weight 121.56 kg Pfo 1 [facility] 11-21-2023 10:01-0500 Diastolic blood pressure 52 mm[Hg] Pfo 1 [facility] 11-21-2023 10:01-0500 Heart rate 62 /min Pfo 1 [facility] [employer] [facility] 11-21-2023 10:01-0500 Respiratory rate 18 /min Pfo 1 [facility] 11-21-2023 10:01-0500 SaO2% (BldA) [Mass fraction] 94 % Pfo 1 [facility] [employer] [employer] [facility] 11-21-2023 10:01-0500 Systolic blood pressure 122 mm[Hg] Pfo 1 [facility] [employer] [employer] [facility] 11-16-2023 09:00-0500 Body temperature 96.6 [degF] DO Fernie Furlong Work Phone: [facility] 11-16-2023 09:00-0500 Diastolic blood pressure 74 mm[Hg] DO Fernie Furlong Work Phone: [facility] 11-16-2023 09:00-0500 Heart rate 71 /min DO Fernie Furlong Work Phone: [facility] 11-16-2023 09:00-0500 Respiratory rate 18 /min DO Fernie Furlong Work Phone: [facility] 11-16-2023 09:00-0500 SaO2% (BldA) [Mass fraction] 97 % DO Fernie Furlong Work Phone: [facility] 11-16-2023 09:00-0500 Systolic blood pressure 148 mm[Hg] DO Fernie Furlong Work Phone: [facility] 08-23-2023 12:20-0400 Body height 165.1 cm Gia Tammy Other [email or web address] [facility] Other 08-23-2023 12:20-0400 Body mass index (BMI) [Ratio] 44.09 kg/m2 Gia Tammy Other [employer] Other 08-23-2023 12:20-0400 Body temperature 96.6 [degF] Gia Tammy Other [employer] Other 08-23-2023 12:20-0400 Body weight 120.2 kg Gia Tammy Other [employer] Other 08-23-2023 12:20-0400 Diastolic blood pressure 86 mm[Hg] Gia Tammy Other [employer] Other 08-23-2023 12:20-0400 Respiratory rate 18 /min Gia Tammy Other [employer] Other 08-23-2023 12:20-0400 SaO2% (BldA) [Mass fraction] 96 % Gia Tammy Other [employer] Other 08-23-2023 12:20-0400 Systolic blood pressure 138 mm[Hg] Gia Tammy Other [employer] Other 01-25-2023 12:20-0400 Body height 165.1 cm Gia Tammy Other [employer] Other 01-25-2023 12:20-0400 Body mass index (BMI) [Ratio] 45.76 kg/m2 Gia Tammy Other [employer] Other 01-25-2023 12:20-0400 Body temperature 96.7 [degF] Gia Tammy Other [employer] Other 01-25-2023 12:20-0400 Body weight 124.74 kg Gia Tammy Other [employer] Other 01-25-2023 12:20-0400 Diastolic blood pressure 80 mm[Hg] Gia Tammy Other [employer] Other 01-25-2023 12:20-0400 Respiratory rate 18 /min Gia Tammy Other [employer] Other 01-25-2023 12:20-0400 SaO2% (BldA) [Mass fraction] 96 % Gia Tammy Other [employer] Other 01-25-2023 12:20-0400 Systolic blood pressure 139 mm[Hg] Gia Tammy Other [employer] Other 07-20-2022 13:00-0400 Body height 165.1 cm Gia Tammy Other [employer] Other 07-20-2022 13:00-0400 Body temperature 96 [degF] Gia Tammy Other [employer] Other 07-20-2022 13:00-0400 Diastolic blood pressure 71 mm[Hg] Gia Tammy Other [employer] Other 07-20-2022 13:00-0400 Respiratory rate 18 /min Gia Tammy Other [employer] Other 07-20-2022 13:00-0400 SaO2% (BldA) [Mass fraction] 96 % Gia Tammy Other [employer] Other 07-20-2022 13:00-0400 Systolic blood pressure 134 mm[Hg] Gia Tammy Other [employer] Other 04-06-2022 12:00-0400 Body height 165.1 cm Gia Tammy Other [employer] Other 04-06-2022 12:00-0400 Body mass index (BMI) [Ratio] 46.32 kg/m2 Gia Tammy Other [employer] Other 04-06-2022 12:00-0400 Body temperature 98 [degF] Gia Tammy Other [employer] Other 04-06-2022 12:00-0400 Body weight 126.28 kg Gia Tammy Other [employer] Other 04-06-2022 12:00-0400 Diastolic blood pressure 70 mm[Hg] Gia Tammy Other [employer] Other 04-06-2022 12:00-0400 Respiratory rate 20 /min Gia Tammy Other [employer] Other 04-06-2022 12:00-0400 SaO2% (BldA) [Mass fraction] 93 % Gia Tammy Other [employer] Other 04-06-2022 12:00-0400 Systolic blood pressure 122 mm[Hg] Gia Tammy Other [employer] Other 12-27-2021 16:20-0500 Body height 165.1 cm Gia Tammy Other [employer] Other 12-27-2021 16:20-0500 Body mass index (BMI) [Ratio] 46.29 kg/m2 Gia Tammy Other [employer] Other 12-27-2021 16:20-0500 Body temperature 96.2 [degF] Gia Tammy Other [employer] Other 12-27-2021 16:20-0500 Body weight 126.19 kg Gia Tammy Other [employer] Other 12-27-2021 16:20-0500 Diastolic blood pressure 78 mm[Hg] Gia Tammy Other [employer] Other 12-27-2021 16:20-0500 Respiratory rate 20 /min Gia Tammy Other [employer] Other 12-27-2021 16:20-0500 SaO2% (BldA) [Mass fraction] 95 % Gia Tammy Other [employer] Other 12-27-2021 16:20-0500 Systolic blood pressure 161 mm[Hg] Gia Tammy Other [employer] Other Encounters Encounter Date Encounter Type Care Provider Facility Start: 01-17-2024 Orders Only Fernie noguera DO Work Phone: [facility] Comment on above: Hypertension 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 ([facility]) (Primary Dx) Start: 01-16-2024 End: 01-16-2024 ambulatory FERNIE HACKETT [facility] Start: 01-16-2024 End: 01-16-2024 ambulatory Pfo Infusion Chair 6 Elida Ireland [facility] - Medical Oncology Comment on above: Hypomagnesemia (Prim fara Dx) Start: 01-14-2024 End: 01-15-2024 ambulatory GIA TAMMY [facility] Start: 01-09-2024 End: 01-09-2024 [facility] Start: 01-09-2024 End: 01-09-2024 ambulatory Pfo Infusion Chair [address] [facility] - Medical Oncology Comment on above: Hypomagnesemia (Prim fara Dx) Start: 01-08-2024 End: 01-08-2024 Patient encounter procedure Fernie Hackett DO Work Phone: [facility] Comment on above: Medicare annual well ness visit, subsequent (Primary Dx); Screening for depression Start: 01-07-2024 End: 01-08-2024 [facility] Start: 01-02-2024 End: 01-11-2024 [facility] Start: 01-02-2024 End: 01-02-2024 ambulatory Pfo Infusion Chair [address] [facility] - Medical Oncology Comment on above: Hypomagnesemia (Prim fara Dx) Start: 12-31-2023 End: 01-01-2024 [facility] Start: 12-26-2023 End: 12-26-2023 [facility] Start: 12-26-2023 End: 12-26-2023 ambulatory Pfo Infusion Chair [address] [facility] - [facility] Oncology Comment on above: Hypomagnesemia (Prim fara Dx) Start: 12-24-2023 End: 12-25-2023 [facility] Start: 12-19-2023 End: 12-19-2023 ambulatory [facility] Start: 12-19-2023 End: 12-19-2023 ambulatory Pfo Infusion Chair [address] [facility] - [facility] Oncology Comment on above: Hypomagnesemia (Prim fara Dx) Start: 12-17-2023 End: 12-18-2023 [facility] Start: 12-12-2023 End: 12-12-2023 ambulatory [facility] Start: 12-12-2023 End: 12-12-2023 ambulatory Pfo Infusion Chair 2 Elida noel [place] - Medical Oncology Comment on above: Hypomagnesemia (Prim fara Dx) Start: 12-11-2023 Refill Theresa Dhaval FORKLIFT MECHANIC [facility] Start: 12-10-2023 End: 12-11-[address] [facility] Start: 12-07-2023 Orders Only Fernie noguera DO Work Phone: [facility] Start: 12-05-[facility]23 [facility] Start: 12-05-2023 End: 12-05-20[facility] Start: 12-04-2023 Refill Fernie noguera DO Work Phone: [facility] Start: 12-03-2023 End: 12-04-[address] [facility] Start: 11-28-2023 End: 11-28-2023 ambulatory [facility] Start: 11-28-2023 End: 11-28-2023 ambulatory Pfo Infusion Bed 1 Elida hu [facility] Medical Oncology Comment on above: Hypomagnesemia (Prim fara Dx) Start: 11-26-2023 End: 11-27-2023 ambulatory [facility] Start: 11-26-2023 End: 11-26-[address] 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 kidney disease, with long-term current use of insulin ([facility]); Essential hypertension Start: 11-21-2023 End: 11-21-2023 ambulatory FERNIE HACKETT [facility] Start: 11-20-2023 Chart abstracting Felicity Merritt [facility] - Medical Oncology Start: 11-19-2023 End: 11-19-2023 ambulatory [facility] Comment on above: Hypomagnesemia (Prim fara Dx) Start: 11-16-2023 End: 11-16-2023 ambulatory Gia Tammy Facility:[facility] Start: 11-16-2023 End: 11-16-2023 ambulatory DO Fernie Hackett Work Phone: [facility] Work Phone: Start: 11-16-2023 End: 11-16-2023 Discharged Recurring DO Fenrie Hackett Work Phone: [facility]-Infusion Therapy - O/P Work Phone: Start: 11-12-2023 Refill Fernie noguera DO Work Phone: [facility] Start: 10-15-2023 End: 10-16-2023 ambulatory Christian Curtis MD Facility: [facility] Start: 08-23-2023 End: 08-23-2023 ambulatory Gia Tammy Other [employer] Other Start: 08-23-2023 Office outpatient vi sit 25 minutes Gia Tammy [facility] [place] Start: 04-26-[address] FERNIE HACKETT Fac ility:[facility] Start: 01-25-2023 End: 01-26-[address] LUISA STERN . [employer] Other Start: 01-25-2023 Office outpatient vi sit 25 minutes Gia Tammy [facility] [place] Start: 01-15-2023 End: 01-16-2023 ambulatory GIA TAMMY Facility:[facility] Start: 12-06-2022 End: 12-06-2022 ambulatory AB [facility] Start: 11-09-2022 End: 11-10-[address] FERNIE HACKETT Facility:[facility] Start: 10-26-2022 End: 10-27-[address] LUISA STERN . Facility:[facility] Start: 08-02-2022 End: 08-03-[address] LUISA STERN . Facility:[facility] Start: 07-20-2022 End: 07-20-2022 ambulatory Gia Tammy Other [employer] Other Start: 07-20-2022 Office outpatient vi sit 25 minutes Gia Tammy [facility] Start: 07-12-2022 End: 07-13-2022 ambulatory GIA TAMMY Facility:[facility] Start: 05-03-2022 End: 05-03-2022 ambulatory Gia Tammy Other [employer] Other Start: 05-03-2022 Telephone encounter Gia Tammy [facility] Start: 04-25-2022 End: 04-26-[address] LUISA STERN . Facility:[facility] Start: 04-06-2022 End: 04-06-2022 ambulatory Gia Tammy Other [employer] Other Start: 04-06-2022 Office outpatient vi sit 25 minutes Gia Atmmy [facility] [place] Start: 03-30-2022 End: 03-31-2022 ambulatory GIA TAMMY Facility:[facility] Start: 03-30-2022 End: 03-31-[address] LUISA STERN . Facility:[facility] Start: 12-27-2021 End: 12-27-2021 ambulatory Gia Tammy Other [employer] Other Start: 12-27-2021 Office outpatient vi sit 15 minutes Gia Tammy [facility] Start: 11-28-2021 End: 11-28-2021 ambulatory Gia Tammy Other [employer] Other Start: 11-28-2021 Telephone encounter Gia Tammy [facility] Start: 11-24-2021 End: 11-24-2021 ambulatory Gia Tammy Other [employer] Other Start: 11-24-2021 Telephone encounter Gia Tammy [facility] Start: 03-30-2021 End: 03-31-2021 ambulatory EHAB A [facility] Facility:[email or web address] Procedures Date Procedure Procedure Detail Performing Clinician Start: 01-08-2024 Adult depression screening assessment [employer] Phone: Start: 11-26-2023 Adult depression screening assessment Pfo 1 Start: 11-16-2023 MULTIPLE LABS Not In Sy stem Ref Prov Start: 10-18-2023 Adult depression screening assessment [facility] Phone: Plan of Treatment Date Care Activity Detail Author Start: 09-30-2028 DTaP,Tdap and Td Vaccines (2 - Td or Tdap) DTaP,Tdap and Td Vaccines (2 - Td or Tdap) [facility] [employer] [employer] [facility] Start: 01-15-2025 Adult BMI Screening Adult BMI Screen ing [facility] Start: 01-13-2025 End: 01-13-2025 Patient encounter procedure 01/13/2025 12:40 PM EST Office Visit [facility] [address] [place] [id number] [facility] Start: 01-09-2025 Adult BMI Screening Adult BMI Screen ing [facility] [employer] [facility] Start: 01-09-2025 Tobacco Screening Tobacco Screening [facility] Start: 01-08-2025 Depression Screening Depression Scre ening [facility] Start: 01-08-2025 Fall Risk Screening Fall Risk Screen ing [facility] Start: 01-08-2025 Medicare Annual Well ness Visit Medicare Annual Wellness Visit [facility] Start: 01-02-2025 Tobacco Screening Tobacco Screening [facility] Start: 12-26-2024 Adult BMI Screening Adult BMI Screen ing [facility] Start: 12-26-2024 Tobacco Screening Tobacco Screening [facility] Start: 12-19-2024 Adult BMI Screening Adult BMI Screen ing [facility] Start: 12-19-2024 Tobacco Screening Tobacco Screening [facility] Start: 12-12-2024 Adult BMI Screening Adult BMI Screen ing [facility] Start: 12-05-2024 Adult BMI Screening Adult BMI Screen ing [facility] Start: 12-05-2024 Tobacco Screening Tobacco Screening [facility] Start: 11-28-2024 Adult BMI Screening Adult BMI Screen ing [facility] Start: 11-28-2024 Tobacco Screening Tobacco Screening [facility] Start: 11-26-2024 Adult BMI Screening Adult BMI Screen ing [facility] Start: 11-26-2024 Depression Screening Depression Scre ening [facility] Start: 11-26-2024 Fall Risk Screening Fall Risk Screen ing [facility] Start: 11-26-2024 Tobacco Screening Tobacco Screening [facility] Start: 11-21-2024 Adult BMI Screening Adult BMI Screen ing [facility] Start: 10-18-2024 Adult BMI Screening Adult BMI Screen ing [facility] Start: 10-18-2024 Depression Screening Depression Scre ening [facility] Start: 10-18-2024 Tobacco Screening Tobacco Screening [facility] Start: 07-24-2024 Fall Risk Screening Fall Risk Screen ing [facility] Start: 05-27-2024 End: 05-27-2024 Patient encounter procedure 05/27/2024 1:30 PM EDT Office Visit [facility] [address] [place] [address] Fernie Hackett DO [address], [place] [address] [facility] Start: 02-06-2024 End: 02-06-2024 ambulatory 02/06/2024 9:30 AM EDT Infusion Elida Ireland [email or web address] - Medical Oncology [address] [place] [phone] Elida Ireland [facility] [[email or web address] - Medical Oncology Start: 01-30-2024 End: 01-30-2024 ambulatory 01/30/2024 9:30 AM EDT Infusion Elida Ireland [facility] [[email or web address] - Medical Oncology [address] [place] [phone] Elida Ireland [facility] [[email or web address] - Medical Oncology Start: 01-23-2024 End: 01-23-2024 ambulatory 01/23/2024 9:30 AM EDT Infusion Elida Ireland [facility] [[email or web address] - Medical Oncology [address] [place] [phone] Elida Ireland [facility] [[email or web address] - Medical Oncology Start: 01-16-2024 End: 01-16-2024 ambulatory 01/16/2024 9:30 AM EST Infusion Elida Ireland [facility] [[email or web address] - Medical Oncology [address] [place] [phone] Elida Ireland [facility] [[email or web address] - Medical Oncology Start: 01-09-2024 End: 01-09-2024 ambulatory 01/09/2024 9:30 AM EST Infusion Elida Ireland [facility] [[email or web address] - Medical Oncology [address] [place] [phone] Elida Ireland [facility] [[email or web address] - Medical Oncology Start: 01-08-2024 End: 01-08-2024 Patient encounter procedure 01/08/2024 1:00 PM EST Office Visit [facility] [address] [place] [address] [facility] Start: 01-02-2024 End: 01-02-2024 ambulatory 01/02/2024 9:30 AM EST Infusion Elida Ireland [facility] [[email or web address] - Medical Oncology [address] [place] [phone] Elida Ireland [facility] [[email or web address] - Medical Oncology Start: 12-26-2023 End: 12-26-2023 ambulatory 12/26/2023 9:30 AM EST Infusion Elida Ireland [facility] [[email or web address]] - Medical Oncology [address] [place] [phone] Elida Ireland [facility] [[email or web address] - Medical Oncology Start: 12-19-2023 End: 12-19-2023 ambulatory 12/19/2023 9:30 AM EST Infusion Elida Ireland [facility] [[email or web address]] - Medical Oncology [address] [place] [phone] Elida Ireland [facility] [[email or web address] - Medical Oncology Start: 12-12-2023 Administration of varicella zoster vaccine Zoster (Shingles) Vaccine (1 of 2) [facility] Comment on above: Postponed from 03/12 (Patient Refused) Start: 12-12-2023 Medicare Annual Well ness Visit Medicare Annual Wellness Visit [facility] Start: 12-12-2023 End: 12-12-2023 ambulatory 12/12/2023 9:30 AM EST Infusion Elida Ireland [facility] [[email or web address]] - Medical Oncology [address] [place] [phone] Elida Ireland [facility] [[email or web address] - Medical Oncology Start: 12-05-2023 End: 12-05-2023 ambulatory 12/05/2023 9:30 AM EST Infusion Elida Ireland [facility] [[email or web address]] - Medical Oncology [address] [place] [phone] Elida Ireland [facility] [[email or web address]] - Medical Oncology Start: 11-28-2023 End: 11-28-2023 ambulatory 11/28/2023 9:30 AM EST Infusion Elida Ireland [facility] [[email or web address]] - Medical Oncology [address] [place] [phone] Elida Ireland [facility] [[email or web address] - Medical Oncology Start: 11-26-2023 End: 11-26-2023 Patient encounter procedure 11/26/2023 1:30 PM EST Office Visit [facility] [address] [place] [address] Fernie Hackett, DO [address] [facility], [place] [address] [facility] Start: 11-21-2023 End: 11-21-2023 ambulatory 11/21/2023 9:30 AM EST Infusion Elida L Beka [facility] [[email or web address]] - Medical Oncology [address] [place] [phone] Elida Ireland [facility] [[email or web address]] - Medical Oncology Start: 07-13-2023 COVID-19 Vaccine ( season) COVID-19 Vaccine () [facility] Start: 03-12-2015 Administration of varicella zoster vaccine Zoster (Shingles) Vaccine (1 of 2) [facility] Start: 1960 Adult BMI Follow Up Plan Adult BMI F ollow Up Plan [facility] End: 11-21-2024 Comprehensive metabolic 2000 panel - Serum or Plasma Comprehensive metabolic panel Lab Routine Essential hypertension 1 Occurrences starting 11/21/2023 until 11/21/2024 [facility] Work Phone: Comment on above: 1 Occurrences starti ng 11/21/2023 until 11/21/2024 End: 11-21-2024 Hemoglobin A1c/Hemoglobin.total in Blood Hemoglobin A1c Lab Routine Type 2 diabetes mellitus with stage 3b chronic kidney disease, with long-term current use of insulin ([facility]) 1 Occurrences starting 11/21/2023 until 11/21/2024 [facility] Comment on above: 1 Occurrences starti ng 11/21/2023 until 11/21/2024 End: 11-21-2024 Lipid panel Lipid panel Lab Routine Mixed hyperlipidemia 1 Occurrences starting 11/21/2023 until 11/21/2024 [facility]: 1 Occurrences starti ng 11/21/2023 until 11/21/2024 End: 11-21-2024 Microalbumin - Albumin: Creatinine Urine Ratio Microalbumin - Albumin: Creatinine Urine Ratio Lab Routine Type 2 diabetes mellitus with stage 3b chronic kidney disease, with long-term current use of insulin ([facility]) 1 Occurrences starting 11/21/2023 until 11/21/2024 [facility] Comment on above: 1 Occurrences starti ng 11/21/2023 until 11/21/2024 End: 01-16-2025 Potassium [Moles/volume] in Serum or Plasma Potassium Lab Routine 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 ([facility]) 1 Occurrences starting 01/17/2024 until 01/16/2025 [facility] Work Phone: Comment on above: 1 Occurrences starti ng 01/17/2024 until 01/16/2025 Immunizations Immunization Date Immunization Notes Care Provider [facility] 08-31-2021 Influenza, High-dose , Quadrivalent Fernie Furlong DO Work Phone: [facility] 02-01-2021 COVID-19, mRNA, LNP- S, PF, 30mcg/0.3mL Dose Fernie Furlong DO Work Phone: [facility] 01-10-2021 COVID-19, mRNA, LNP- S, PF, 30mcg/0.3mL Dose Fernie Furlong DO Work Phone: [facility] 07-29-2020 influenza, high dose seasonal, preservative-free Fernie Furlong DO Work Phone: [facility] 09-03-2019 influenza, high dose seasonal, preservative-free Fernie Furlong DO Work Phone: [facility] 09-30-2018 tetanus toxoid, redu kiran diphtheria toxoid, and acellular pertussis vaccine, adsorbed Fernie Furlong DO Work Phone: [facility] 09-19-2018 influenza, high dose seasonal, preservative-free Fernie Furlong DO Work Phone: [facility] 09-03-2017 influenza virus vacc ine, unspecified formulation Fernie Furlong DO Work Phone: [facility] 07-27-2015 influenza, seasonal, injectable, preservative free Fernie Furlong DO Work Phone: [facility] 07-27-2015 seasonal influenza, intradermal, preservative free Fernie Hackett DO Work Phone: [facility] 01-15-2015 zoster vaccine, live Fernie Hackett DO Work Phone: [facility] 01-15-2015 zoster vaccine, unspecified formulation Fernie Hcakett DO Work Phone: [facility] 07-16-2014 influenza, seasonal, injectable Fernie Hackett DO Work Phone: [facility] 10-20-2013 pneumococcal conjuga te vaccine, 13 valent Fernie Hackett DO Work Phone: [facility] 08-30-2011 tetanus and diphther ia toxoids, not adsorbed, for adult use Fernie Hackett DO Work Phone: [facility] 08-20-2008 pneumococcal polysaccharide vaccine, 23 valent Fernie Hackett DO Work Phone: [facility] Payers Date Payer Category Payer Self-pay [id number] 2022 Unknown 2015 Private Health Insurance [facility] [id number] 2015-Present [phone] [address] [place] [address] [id number] 2007 Medicare 1959 Medicare [id number] 1959 Unknown [id number] 1942 Unknown [id number] 2.16.840.1.291850.3.579.2 .647 1942 Unknown [id number] 2.16.840.1.930227.3.579.2 .593 1942 Unknown [id number] 2.16.840.1.051026.3.579.2 .593 1942 Unknown [id number] 2.16.840.1.659378.3.579.2 .593 1942 Unknown [id number] 2.16.840.1.970102.3.579.2 .593 1942 Unknown [id number] 2.16.840.1.580646.3.579.2 .593 1942 Unknown [id number] 2.16.840.1.180371.3.579.2 .593 1942 Unknown [id number] 2.16.840.1.438045.3.579.2 .593 1942 Unknown [id number] 2.16.840.1.855298.3.579.2 .593 1942 Unknown [id number] 2.16.840.1.831920.3.579.2 .593 1942 Unknown [id number] 2.16.840.1.157678.3.579.2 .593 1942 Unknown [id number] 2.16.840.1.244842.3.579.2 .593 1942 Unknown [id number] 2.16.840.1.426193.3.579.2 .196 1942 Unknown [id number] 2.16.840.1.057780.3.579.2 .1286 1942 Unknown [id number] 2.16.840.1.231356.3.579.2 .1286 1942 Unknown [id number] 2.16.840.1.254787.3.579.2 .1286 1942 Unknown [id number] 2.16.840.1.246559.3.579.2 .1286 1942 Unknown [id number] 2.16.840.1.972226.3.579.2 .128 1942 Unknown [id number] 2.16.840.1.470219.3.579.2 .1285 1942 Unknown [id number] 2.16.840.1.430950.3.579.2 .1285 1942 Unknown [id number] 2.16.840.1.433048.3.579.2 .1285 1942 Unknown [id number] 2.16.840.1.423309.3.579.2 .128 1942 Unknown [id number] 2.16.840.1.978439.3.579.2 .1285 1942 Unknown [id number] 2.16.840.1.639180.3.579.2 .1285 1942 Unknown [id number] 2.16.840.1.899339.3.579.2 .1285 1942 Unknown [id number] 2.16.840.1.392829.3.579.2 .1285 1942 Unknown [id number] 2.16.840.1.833720.3.579.2 .1285 1942 Unknown [id number] 2.16.840.1.086478.3.579.2 .1285 1942 Unknown [id number] 2.16.840.1.835379.3.579.2 .1285 1942 Unknown [id number] 2.16.840.1.724833.3.579.2 .1285 1942 Unknown [id number] 2.16.840.1.918721.3.579.2 .1285 1942 Unknown [id number] 2.16.840.1.428611.3.579.2 .1286 Private Health Insurance [facility] [id number] Unknown [id number] 2.16.840.1.180147.3.579.2 .531 Social History Date Type Detail Facility Unknown if ever smoked [facility] Start: 10-18-2023 End: 01-08-2024 [facility]igned At [facility] Start: 05-04-2017 [facility] Start: 05-04-2017 Tobacco use and exposure Smokeless tobacco non-user [facility] Start: 10-18-2023 End: 01-09-2024 Alcohol intake Current drinker of alcohol (finding) [facility] Start: 10-18-2023 End: 01-08-2024 Alcohol intake [facility] Adolescent depressio n screening assessment 0 [facility] Start: 1940 Sex Assigned At Not on file [facility] Start: 1940 Sex Assigned At Female [facility] Has the [employer], [employer], or [employer] threatened to shut off services in your home in past 12Mo No [facility] Are you now , , , , never or living with a partner? [facility] How often to you hav e a drink containing alcohol? Never [facility] Do you feel stress - tense, restless, nervous, or anxious, or unable to sleep at night because your mind is troubled all the time - these days [OSQ] Not at all [facility] Medical Equipment Procedure Code Equipment Code Equipment Origin al Text Equipment Identifier Dates 1 strip by other route in the morning and 1 strip before bedtime. [id number] Start: 08-30-2023 1 Lancet. by miscellaneous route in the morning and 1 Lancet. before bedtime. [id number] Start: 08-30-2023 USE 1 NEEDLE THR EE TIMES A DAY [id number] Start: 07-23-2023 Clinical Notes 12-27-2021 to 01-16-2024 Americo Chopra RN - 01/16/2024 9:30 AM Kenisha Chopra RN - 01/09/2024 9:30 AM Shadia Hackett DO - 01/08/2024 1:00 PM Suze Delgado RN - 01/02/2024 9:30 AM EST Note Date & Type Note Facility 01-16-2024 History of Presen t illness Narrative Pt here for 2gm IV magnesium as scheduled. Mg level 1.6. PIV initiated to RFA. Brisk blood return noted, flushes with ease. NS started at KVO. Magnesium infused over 2 hours. Pt tolerated well. Line flushed. PIV dc'd. Pressure dressing applied. Pt dc'd in stable ambulatory condition with walker. V/U of upcoming appointments. documented in this encounter [facility] 01-09-2024 History of Presen t illness Narrative Pt here for 2g IV magnesium for mg level of 1.7. Tolerating infusions well. PIV initiated to RFA. Brisk blood return, flushes with ease. NS started at KVO. Magnesium infused over 2 hours. Pt tolerated well. PIV flushed and dc'd. Pressure dressing applied. Dc'd in stable condition. documented in this encounter [facility] 01-08-2024 History of Presen t illness Narrative Subjective SUBJECTIVE: Patient ID: Adore Wolff is a 83 y.o. female who presents for a Medicare Annual Wellness exam. HPI The following portions of the patient's history were reviewed and updated as appropriate: allergies, current medications, past family history, past medical history, past social history, past surgical history and problem list. AWV FLOWSHEET : Lifestyle Assessment Do you smoke or use smokeless tobacco?: No If you smoke or use smokeless tobacco, are you ready to quit?: NA Are you exposed to secondhand smoke?: No On average, how many drinks of alcohol do you consume in a week?: None Do you exercise for 30 or more minutes on average at least 3 days a week?: (!) Never Do you have any tooth, denture, or oral problems?: No Do you snore or has anyone told you that you snore?: (!) Yes Do you try to eat a balanced diet?: Yes Do you experience leakage of urine, also known as urinary incontinence?: (!) Always Do you have difficulty performing any of these activities? (check all that apply): (!) Getting out of a chair, Walking Do you have difficulty performing any of these activities? (check all that apply): (!) Housekeeping, Preparing a meal, Shopping, Paying bills Fall Risk Fall Risk Assessment Completed?: Yes Have you fallen in the past year?: No Are you worried about falling?: (!) Yes Do you feel unsteady when standing or walking?: (!) Yes Risk Stratification: Moderate Risk Depression Screening Little interest or pleasure in doing things: Not at all Feeling down, depressed, or hopeless: Not at all Trouble falling or staying asleep, or sleeping too much: Not at all Feeling tired or having little energy: Not at all Poor appetite or overeating: Not at all Feeling bad about yourself - or that you are a failure or have let yourself or your family down: Not at all Trouble concentrating on things, such as reading the newspaper or watching television: Not at all Moving or speaking so slowly that other people could have noticed. Or the opposite - being so fidgety or restless that you have been moving around a lot more than usual: Not at all Thoughts that you would be better off , or of hurting yourself in some way: Not at all PEG Scale Safety Assessment Do you have throw rugs on the floor?: No Do you feel safe at your home?: Yes Do you feel unsteady when walking?: (!) Yes Are you having difficulty with driving?: N/A Do you have trouble seeing?: (!) Yes What assistive device do you use? (check all that apply): (!) Walker, Cane, Raised toilet seat, Bath bar/seat Hearing Assessment Do you strain or struggle to hear/understand conversations?: No Do you have trouble hearing the television or radio when others do not?: No Does your family ever voice concerns about your hearing?: No Do you wear hearing aid/s?: No Personal Health During the past 4 weeks, how would you rate your overall health?: (!) Poor Do you understand how to take all of your medications?: Yes How confident are you that you can control and manage most of your health problems?: Very confident In the past 12 months, how many times have you been hospitalized?: None End of Life Planning Do you have a living will?: Yes Do 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 Physical Exam Assessment/Plan ASSESSMENT/PLAN Encounter Diagnoses Name Primary? Medicare annual wellness visit, subsequent Yes Screening for depression Health maintenance discussed. Depression screen was negative. At least 3 minutes spent administering and discussing. Cognitive screen did not reveal any impairment. She has advanced directives in place. Return in about 1 year (around 01/08/2025). documented in this encounter [facility] 01-02-2024 History of Presen t illness Narrative Patient is here for 2g IV magnesium as scheduled. Mg level 1.7. PIV initiated on third attempt, blood return noted, flushes with ease. NS started at KVO. Magnesium infused over 2 hours. Line flushed. Pt tolerated well. PIV dc'd, pressure dressing applied. Pt dc'd in stable ambulatory condition with spouse. documented in this encounter [facility] 12-26-2023 History of Presen t illness Narrative Pt here for 2g IV magnesium infusion as scheduled. Mg level 1.6. Tolerating infusions well. PIV initiated to RFA. Brisk blood return noted, flushes with ease. NS started at KVO. Magnesium infused over 2 hours. Pt tolerated well. Line flushed. PIV dc'd. Pressure dressing applied. Pt v/u of future appointments. documented in this encounter [facility] 12-19-2023 History of Presen t illness Narrative Pt here for 4g IV magnesium infusion as scheduled. Mg level 1.5. Tolerating infusions well. PIV initiated to LFA. Brisk blood return noted, flushes with ease. NS started at KVO. Magnesium infused over 4 hours. Pt tolerated well. Line flushed. PIV dc'd. Pressure dressing applied. Pt v/u of future appointments. documented in this encounter [facility] 12-12-2023 History of Presen t illness Narrative Patient is here for 2g IV magnesium as scheduled. Mg level 1.7. PIV initiated blood return noted, flushes with ease. NS started at KVO. Magnesium infused over 2 hours. Line flushed. Pt tolerated well. PIV dc'd, pressure dressing applied. Pt dc'd in stable ambulatory condition with spouse. documented in this encounter [facility] 12-04-2023 Miscellaneous Notes Formattin g of this note might be different from the original. Patient called and these are both covered by insurance and she would like these sent in instead of what the alternative was documented in this encounter [facility] 12-04-2023 Telephone encount er Note Patient called and these are both covered by insurance and she would like these sent in instead of what the alternative was [facility] 11-28-2023 History of Presen t illness Narrative Patient here for 2g IV magnesium as scheduled. Mg level 1.8. PIV initiated to LFA Brisk blood return noted, flushes with ease. NS started at KVO. Magnesium infused over 2 hours. Line flushed. Pt tolerated well. PIV dc'd, pressure dressing applied. Pt dc'd in stable ambulatory condition with spouse. documented in this encounter [facility] 11-21-2023 History of Presen t illness Narrative Pt here for 4g IV magnesium as scheduled. Mg level 1.4. PIV initiated to right hand. Brisk blood return noted, flushes with ease. NS started at KVO. Magnesium infused over 4 hours. Line flushed. Pt tolerated well. PIV dc'd, pressure dressing applied. Pt dc'd in stable ambulatory condition with spouse. Treatment calendar provided. documented in this encounter [facility] 11-19-2023 Note Continue statin [facility] 11-19-2023 Note Hypertension is elev ated in office today was 192/86 and repeat b/p improved 158/80 Typically b/p is 122-150/60-80 at home and at other physician offices. Continue all meds ramipril, coreg [facility] 11-19-2023 Note Coronary artery dise ase is stable Continue GDMT- ASA, lipitor, coreg continue risk factor modifications- heart healthy diet, regular exercise as tolerated and continue all medications. [facility] 11-19-2023 Note Patient here for 1 y ear follow up CAD, hypertension, and venous insufficiency. 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 Denies chest pain, palpitations, and lightheadedness. Says her ANGELES is unchanged but has more LE edema. She is down 13# since last Nov 2022. Review of Systems Constitutional: Positive for weight loss (13# since Nov 2022). Cardiovascular: Positive for dyspnea on exertion and leg swelling. Musculoskeletal: Positive for arthritis, back pain and joint pain. All other systems reviewed and are negative. [facility] 11-19-2023 Note [facility] CARDIOLOGY PROGR ESS NOTE HPI: Adore Wolff is a 83 y.o. female here for routine F/U hypertension, CAD, and CKD. Currently from a cardiac standpoint pt is feeling well. Denied chest pain or worsening SOB with exertion. Denied orthopnea, states she always sleeps with a wedge pillow for comfort. States Dr Calles is managing low mag level with infusions and mag levels frequently. She is ambulatory via walker. HPI 83 yo female PMHx: CAD (mod 2V per 03/2021 cath), HTN, DM type II, COPD, LISA CKD - follows with Tammy who manages her diuretics Patient here for 1 year follow up CAD, hypertension, and venous insufficiency. 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 Denies chest pain, palpitations, and lightheadedness. Says her ANGELES is unchanged but has more LE edema. She is down 13# since last Nov 2022. Review of Systems Constitutional: Positive for weight loss (13# since Nov 2022). Cardiovascular: Positive for dyspnea on exertion and leg swelling. Musculoskeletal: Positive for arthritis, back pain and joint pain. All other systems reviewed and are negative. Visit Vitals BP 158/80 (BP Location: Left arm, Patient Position: Sitting) Pulse 75 Ht 1.664 m (5' 5.5 ) Wt 122 kg (269 lb) SpO2 93% BMI 44.08 kg/m??? Smoking Status Never BSA 2.37 m??? Allergies Allergen Reactions Adhesive Itching and Other Povidone-Iodine Other Sulfa (Sulfonamide Antibiotics) Other Tetracyclines Other Medications: Current Outpatient Medications on File Prior to Visit Medication Sig Dispense Refill albuterol 90 mcg/actuation inhaler allopurinol (Zyloprim) 100 mg tablet allopurinol 100 mg tablet aspirin 81 mg EC tablet in the morning. atorvastatin (Lipitor) 80 mg tablet Take 80 mg by mouth at bedtime. baclofen (Lioresal) 10 mg tablet baclofen 10 mg tablet carvedilol (Coreg) 6.25 mg tablet Take 6.25 mg by mouth with breakfast and with evening meal. fluticasone furoate-vilanteroL (Breo Elipta) 200-25 mcg/dose inhaler Breo Ellipta 200 mcg-25 mcg/dose powder for inhalation furosemide (Lasix) 40 mg tablet 80 mg every 12 (twelve) hours. insulin lispro (HumaLOG) 100 unit/mL injection Humalog Ousmane KwikPen (U-100) 100 unit/mL subcutaneous half-unit pen Inject by subcutaneous route. Lantus Solostar U-100 Insulin 100 unit/mL (3 mL) pen magnesium oxide (Mag-Ox) 400 mg tablet 400 mg in the morning. metoclopramide (Reglan) 10 mg tablet every 12 (twelve) hours. montelukast (Singulair) 10 mg tablet Take 1 tablet by mouth in the morning. omeprazole (PriLOSEC) [address] capsule 1 capsule every 12 (twelve) hours. pregabalin (Lyrica) 75 mg capsule 1 capsule in the morning. ramipril (Altace) 10 mg capsule ramipril 10 mg capsule TAKE ONE CAPSULE BY MOUTH DAILY theophylline ER (Uniphyl) 400 mg 24 hr tablet in the morning. traMADol ER (Ultram-ER) 100 mg 24 hr tablet take 1 tablet by mouth once daily if needed for LUMBAR RADICULOPATHY budesonide-formoteroL (Symbicort) 160-4.5 mcg/actuation inhaler Inhale 2 puffs twice a day. No current facility-administered medications on file prior to visit. Physical Exam: Constitutional: Appearance: Normal appearance. Without apparent distress, obese, chronically ill HENT: Head: Normocephalic and atraumatic. Nose: Nose normal. Mouth/Throat: Mouth: Mucous membranes are moist. Eyes: Extraocular Movements: Extraocular movements intact. Conjunctiva/sclera: Conjunctivae normal. Neck: Vascular: No JVD. Cardiovascular: Rate and Rhythm: Normal rate and regular rhythm. Pulses: Dorsalis pedis pulses are 3 on the right side and 3on the left side. Posterior tibial pulses are 3 on the right side and 3 on the left side. Heart sounds: Normal heart sounds, S1 normal and S2 normal. Pulmonary: Effort: Pulmonary effort is normal. Breath sounds: Normal breath sounds. Abdominal: General: Bowel sounds are normal. Palpations: Abdomen is soft. Musculoskeletal: General: Normal range of motion. Cervical back: Normal range of motion. Right lower le+ pitting edema, lymphedema component. BLE compression socks in place Left lower le+ pitting edema, lymphedema component. Skin: General: Skin is warm and dry. Capillary Refill: Capillary refill takes less than 2 seconds. Neurological: General: No focal deficit present. Mental Status: She is alert and oriented to person, place, and time. Psychiatric: Mood and Affect: Mood normal. Behavior: Behavior normal. Thought Content: Thought content normal. Judgment: Judgment normal. Labs: 11/08/23 CBC stable K+ normal BUN 40, Cr 1.50, GFR 33- renal function improved Mag 1.1- very low- nephrology managing with infusions AST 14- low, ALT 37 normal, ALP 132- slightly elevated 05/16/23 BUN 51, CR1.81 A1C7.7 ALP 135- elevated, AST 23, ALT 35-normal Chol 162, Trig 205, HDL 55, LDL 66 - well controlled Labs 03/30/22: Cr. 2.05, BUN 64, (more content not included)... [facility] 08-23-2023 Evaluation note Encounter Date Diagnosis Assessment [...] magnesium diet and provide information about it. [facility] Other 03-16-2023 NoteCONSULTATION CONSULTATION DATE: 01/25/2023 HISTORY: [...] and to talk with Dr. Conley, their marine rigger, to confirm that this was acceptable, considering her stage 3 kidney disease. Other than that, we will see her in three months' time at the clinic, unless otherwise indicated. Patient and agree with this plan.[facility] 01-25-2023 Evaluation note* Encounter Date Diagnosis Assessment [...] magnesium diet and provide information about it. [facility] Chief Complaint: Patient being seen via telephone call for 6 mo follow up hypertension, CAD, and CKD. She denies chest pain and increased SOB with exertion. C/o increased LE edema but denies weight gain. Says her marine rigger Dr. Conley advised her to call him for weight gain of over 2# in a day. She hasn't had to call him recently. She had CMP,LIPID last month. She is currently taking lasix 80mg bid, and has noticed decreased urinary output. HPI: Adore Wolff is a 82 y.o. female PMHx: CAD (mod 2V per 03/2021 cath), HTN, DM type II, COPD, LISA CKD - follows with Tammy who manages her diuretics She denies any changes since last seen. She continues to have SOB on exertion but this is unchanged from last year. She has LE swelling, seems to be unchanged from her normal . She wears compression stockings which help. BP at home running 120s/60s Labs 03/30/22: Cr. 2.05, BUN 64, K 4.6, GFR 23, mag 1.7 Hgb 12.9, plt 191, WBC 7.2 Service Date: 03/30/2021 Cardiovascular Laboratory Report FINAL IMPRESSIONS: 1. Moderate [...] p.o. b.i.d., and continue angiotensin-converting enzyme inhibitor/receptor micki. 4. Follow up with [email or web address] Cardiology in the next 2 to 3 months. 5. Follow up with Dr. Hackett as scheduled. PROCEDURES: Bilateral selective coronary angiography via left radial approach. Cardiology ROS: Review of Systems Cardiovascular: Positive for dyspnea on exertion and leg swelling. Musculoskeletal: Positive for arthritis, back pain and joint pain. All other systems reviewed and are negative. Past Medical History She has no past medical history on file. Surgical History She has no past surgical history on file. Social History She has no history on file for tobacco use, alcohol use, and drug use. Family History No family history on file. Allergies Adhesive, Povidone-iodine, Sulfa (sulfonamide antibiotics), and Tetracyclines Medications (Not in a hospital admission) Last Recorded Vitals Physical Examination: Unobtainable Assessment: 1. Essential hypertension - 2. Coronary atherosclerosis - 3. Type 2 diabetes mellitus - -given diabetes and vascular disease, an SGLT 2 inhibitor or GLP-1 receptor agonist is recommended. Will defer to PCP. 4. Chronic obstructive lung disease - -Management per PCP J44.9: Chronic obstructive pulmonary disease, unspecified 5. Venous insufficiency Plan: Continue current medical therapy Close follow-up of serum creatinine and electrolytes; she follows with her marine rigger Leg swelling is likely related to venous insufficiency plus or minus lymphedema; in the absence of weight gain, without orthopnea, paroxysmal tunnel dyspnea, or other symptoms and signs of heart failure, I do not believe this is related to volume overload Return to clinic in 1 year or sooner should problems arise Date of phone call: 12/06/2022 No chief complaint on file. Total time spent in Medical Discussion: 5 minutes. Total 5 minutes. The visit was initiated by the patient and conducted [id number] with use of audio-only real time telephone communication between patient and provider for a virtual visit. Verbal consent to provide and bill for this service was obtained on 12/06/2022. No signature was obtained due to the COVID-19 pandemic. Moe Parham MD, MPH, [facility], [facility], [facility] Interventional Cardiology Pager Email: [email or web address] NoteCONSULTATION CONSULTATION DATE: 10/26/2022 HISTORY OF PRESENT ILLNESS: This is a very pleasant, 82-year-old female who presents with her for a three month follow up. Today, she reports 0/10 pain and is overall doing well. At her last appointment on 08/02/2022, we had switched her medications from Zavalla to tramadol extended release 100 mg per day, which she feels is helping very much. It is lasting for her better than the Zavalla. She is also on Lyrica 75 mg [...] indicated, and patient agrees with this plan.[facility] [id number] NoteCONSULTATION CONSULTATION DATE: 08/02/2022 HISTORY OF PRESENT ILLNESS: This is a pleasant, 81-year-old female, accompanied by her , returning to the clinic for a three month follow up for chronic lower back pain. She was last seen on 04/25/[address] Stern which, at that time, her Zavalla was decreased to 5/325 daily p.r.n., which [...] increased to 100 mg extended release daily. Zavalla will be discontinued. Education was given regarding use of the menthol heat rub with Voltaren gel and heat application to her back. Vitamin and nutrition importance was discussed. Patient will be seen back in the clinic in three months' time, unless otherwise indicated, and patient agrees to this.[facility] [id number] Evaluation note* Encounter Date Diagnosis Assessment Notes [...] any recent gout flare. She takes allopurinol. [facility] Other 06-22-2022 Evaluation note* Encounter Date Diagnosis Assessment Notes Treatment Notes Treatment Clinical Notes Apr, Hypertensive chronic kidney disease with stage 1 through stage 4 chronic kidney disease, or unspecified chronic kidney disease (ICD-10 - I12.9) [facility] Other 06-14-2022 NoteCONSULTATION CONSULTATION DATE: 04/25/2022 CHIEF [...] 4/10. She is managing the pain with Zavalla 5/325 one table daily and tramadol 50 [...] the patient's pain medication which would be Zavalla 5/325 one tablet daily and tramadol 50 [...] she need us. CC: Fernie Hackett D.O. [facility] Signed and Approved by: DR LUISA STERN . 05/02/2022 08:52:00[facility]05-26-2022 Evaluation note* Encounter Date Diagnosis Assessment Notes [...] any recent gout flare. She takes allopurinol. [facility] Other 05-19-2022 NoteCONSULTATION CONSULTATION DATE: 03/30/2022 This [...] She was given a 14-day prescription of Zavalla 5/325 b.i.d. to help with the acuity of her post-procedure pain. Today she reports the Zavalla is gone and she is back on [...] and rather we will maintain her on Zavalla 5/325 b.i.d. which proved to be the [...] and agree and would like to proceed. [facility] Signed and Approved by: JONNY CAMPUZANO . 04/03/2022 15:07:00[facility]02-15-2022 Evaluation note* Encounter Date Diagnosis Assessment Notes [...] any recent gout flare. She takes allopurinol. [facility] Other evaluation noteNo InformationNort Study Edge Other evaluation note* Diagnosis Hypomagnesemia- Primary Disorders of magnesium metabolism [facility] Diagnosis Hypomagnesemia- Primary Disorders of magnesium metabolism [facility]* Diagnosis Mixed hyperlipidemia- Primary Type 2 diabetes mellitus with stage 3b chronic kidney disease, with long-term current use of insulin ([facility] Essential hypertension Unspecified essential hypertension documented in this encounter [facility] noteNo assessment information available [facility] Work Phone: evaluation note* Diagnosis Hypomagnesemia- Primary Disorders of magnesium metabolism documented in this encounter [facility]* Diagnosis Hypomagnesemia- Primary Disorders of magnesium metabolism [facility] Diagnosis Hypomagnesemia- Primary Disorders of magnesium metabolism [facility]* Diagnosis Hypomagnesemia- Primary Disorders of magnesium metabolism [facility]* Diagnosis Medicare annual wellness visit, subsequent- Primary Screening for depression documented [facility]* Diagnosis 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 ([facility])- Primary documented in this encounter [facility] System[facility] general Narrative - Reported* Type Description Date [...] IN LOWER BACK Hospitalization History see above [facility] Other Hisuvgm general Narrative - Reported* Type Description Date [...] HEART CATH 03/30/2021 Hospitalization History see above [facility] Other history general Narrative - Reported* Type Description Date Medical History hypertension Medical History acid reflux Medical History COPD Medical History diabetes mallitus Medical History Arthritis Medical History hyperlipidemia Medical History NUCLEAR STRESS TEST F/U WITH [facility] Medical History LOW BACK PAIN Medical History URI WAS ON PREDNISONE Surgical History neck Surgical History hysterectomy Surgical History cholecystectomy Surgical History carpal tunnel release bilateral Surgical History back surgery lower Surgical History CATARACT SURGERY BILATERAL Surgical History APPENDECTOMY Surgical History HEART CATH 03/30/2021 Surgical History INJECTIONS IN LOWER BACK Hospitalization History see above [facility] Other InstructionsNot on filedocumented in this encounter [facility] on filedocumented in this encounter [facility] filedocumented in this encounter [facility]Not on filedocumented in this encounter [facility]Not on filedocumented in this encounter [facility] Summary Purpose Family History No Family History [...] Directives Records FoundNo Advanced Directives Records Found Chief Complaint and Reason for Visit Chief Complaint hypomagnesemia Additional Source Comments INFORMATION SOURCE (unrecogn ized section and content) DATE CREATED AUTHOR 04/06/2021 [facility] DATE CREATED AUTHOR AUTHOR'S ORGANIZ ATION 05/12/2022 [facility] DATE CREATED AUTHOR AUTHOR'S ORGANIZ ATION 03/15/2023 [facility] DATE CREATED AUTHOR AUTHOR'S ORGANIZ ATION 10/26/2023 [facility] DATE CREATED AUTHOR AUTHOR'S ORGANIZ ATION 11/19/2023 [facility] DATE CREATED AUTHOR AUTHOR'S ORGANIZ ATION 11/23/2023 [facility] DATE CREATED AUTHOR AUTHOR'S ORGANIZ ATION 11/27/2023 [facility] DATE CREATED AUTHOR AUTHOR'S ORGANIZ ATION 11/27/2023 [facility] DATE CREATED AUTHOR AUTHOR'S ORGANIZ ATION 01/17/2024 [facility] REASON FOR VISIT (unrecogniz ed section and content) Reason Comments Med Refill Reason Comments Outpatient Infusion magnesium Reason Comments Outpatient Infusion IV MG Reason Onset Date Comments Med Refill 12/04/2023 Reason Onset Date Comments Med Refill 12/11/2023 Reason Comments Outpatient Infusion Magnesium Reason Comments Outpatient Infusion Magnesium Reason Comments medicare annual wellness Care Teams (unrecognized sec tion and content) Washtub Worker Helper Relationship Specialty Start Date End Date Fernie Hackett DO [address] [place] [address] PCP - General Family Medicine 05/09/17 Washtub Worker Helper Relationship Specialty Start Date End Date Fernie Hackett DO [address] [place] [address] PCP - General Family Medicine 05/09/17 Washtub Worker Helper Relationship Specialty Start Date End Date Fernie Hackett DO [address] [place] [address] PCP - General Family Medicine 05/09/17 Washtub Worker Helper Relationship Specialty Start Date End Date Fernie Hackett DO [address] [place] [address] PCP - General Family Medicine 05/09/17 Washtub Worker Helper Relationship Specialty Start Date End Date Fernie Hackett DO [address], [place] [address] PCP - General Family Medicine 05/09/17 Team Status: Active Member Role Status Dates Fernie Hackett Primary Care Provider Active Team Status: Inactive Member Role Status Dates Fernieemil oMlinamonicapoornima DO Primary Care Provider Active Gia Conley MD Attending Provider Active Washtub Worker Helper Relationship Specialty Start Date End Date Fernie Hackett DO [address], [place] [address] PCP - General Family Medicine 05/09/17 Washtub Worker Helper Relationship Specialty Start Date End Date Fernie Hackett DO [address], [place] [address] PCP - General Family Medicine 05/09/17 Washtub Worker Helper Relationship Specialty Start Date End Date Fernie Hackett DO [address], [place] [address] PCP - General Family Medicine 05/09/17 Washtub Worker Helper Relationship Specialty Start Date End Date Fernie Hackett DO [address], [place] [address] PCP - General Family Medicine 05/09/17 Washtub Worker Helper Relationship Specialty Start Date End Date Fernie Hackett DO [address], [place] [address] PCP - General Family Medicine 05/09/17 Washtub Worker Helper Relationship Specialty Start Date End Date Fernie Hackett DO [address], [place] [address] PCP - General Family Medicine 05/09/17 Goals (unrecognized section and content) Goals may be documented in a n alternate section FOR RECORDS PERTAINING TO PATIENTS WHO ARE [...] BE BASED ON THE PRIMARY CLINICAL RECORDS. [employer] [facility]. provides no warranty or guarantee of the accuracy or completeness of information in this document.
[2024-01-21 10:45] VITALS: BP 174/81; PULSE 64; RESP 16; TEMP 36.2; O2SAT 94
[2024-01-21 10:56] LABS: Glucometer 156 mg/dL (74-106)
[2024-01-21 11:11] VITALS: BP 165/92; PULSE 70; RESP 18; O2SAT 90
[2024-01-21 11:15] VITALS: BP 184/85; PULSE 64; RESP 18; O2SAT 93
[2024-01-21] MEDS: BUPIVACAINE HCL 0.25% PF 25 MG/10 ML VIAL INJ (11:19)
[2024-01-21] MEDS: 0.9 % SODIUM CHLORIDE 10 ML INJ (11:19)
[2024-01-21] MEDS: IOHEXOL 240 MG/ML - 10 ML VIAL 60 MG INJ (11:19)
--- NOTE | 2024-01-21 11:19 | W.PM.PROCNOT ---
Date of procedure: 01/21/24 Pre-op diagnosis: Lumbar stenosis with neurogenic claudication Post-op diagnosis: same as pre-op Procedure: Procedure: Bilateral L4-5 transforaminal epidural steroid injection Medications: Bupivacaine 0.25% 2cc, lidocaine 2% 1cc, kenalog 80mg The patient was seen and examined in the preoperative holding area.? Informed consent was obtained and placed on the chart.? Patient was brought to the medical procedure unit and placed in the prone position where a timeout was completed verifying the correct patient, procedure site, position, and planned special equipment using sterile aseptic technique.? Under direct fluoroscopic visualization a 25-gauge Quincke tipped spinal needle was advanced at level left L4-5 to the designated neural foramen where contrast dye was injected to show adequate spread.? There was no evidence of vascular or adverse uptake.? Epidural spread was appreciated.? The above-mentioned injectate was then placed in a 1.5 mL aliquot preceded by negative aspiration.? The needle was removed. The same procedure, at the same level, was completed on the opposite side. ? Patient was taken to the postprocedural recovery area and monitored for an appropriate length of time before found suitable for discharge in the accompaniment of a responsible adult. Anesthesia: Local Surgeon: Christian Curtis Pathology: none sent Condition: stable Disposition: no change
[2024-01-21] MEDS: TRIAMCINOLONE ACETONIDE 40 MG/ML VIAL 80 MG INJ (11:20)
[2024-01-21] MEDS: LIDOCAINE HCL 2% PF 100 MG/5 ML VIAL 3 ML INJ (11:20)
--- NOTE | 2024-01-21 11:58 | PC.NURSE ---
Pt stayed a little longer in postop due to heavy leg upon standing. Taken down by wheelchair out of safety, but patient felt stable when standing and pivoting.
== END 2024-01-21 11:57 | disposition home or self-care (01) ==
PROVIDERS: PCP Family Medicine; Visit Provider Anesthesiology
DX: M48.062 Spinal stenosis, lumbar region with neurogenic claudication (principal); Z79.4 Long term (current) use of insulin
CPT/HCPCS: 36415; 64483; 82948; Q9966

== ENCOUNTER 2024-02-04 12:59 | Outpatient (OUT) | payer MEDICARE, SELFPAY ==
--- OUTSIDE RECORDS SUMMARY | 2024-02-04 13:18 | XMS_ITS | CCD ---
Author Organization [facility] Care Team Providers Care Neurology Nurse Name Role Phone ELTAHAWY, EHAB A Attending Unavailable MIGELTAASHLEY, EHAB A Admitting Unavailable FURLOAMY, FERNIE Referring Unavailable FURLONG, FERNIE Primary Care [...] FERNIE Ricketts Primary Care Unavailable LAKSHMIPATHY ., NARENDMARJANATH Attending Marianela vailable LAKSHMIPATHY ., NARENDRANATH Admitting Marianela vailable STERN ., DR LUISA Page Attending Unavailable CAMPUZANO ., JONNY Consulting Unavailable FURLONG, DR FERNIE Ricketts Primary Care Unavailable STERN ., DR LUISA Page Admitting Unavailable STREN ., DR LUISA Page Attending Unavailable CAMPUZANO [...] STERN ., DR LUISA Page Attending Unavailable CAMPUZANOJONNY DACOSTA Consulting Unavailable FURLONG, DR FERNIE Ricketts Primary Care Unavailable STERN ., DR LUISA Page Admitting Unavailable Furlong DOFernie Primary Care Provider MOE PARHAM Attending Unavailable DARELL SYLVESTER Attending Unavailable Furlong, DO Enciso Primary Care Provider MD Gia Munoz Attending Provider Tammy, Gia Attending Unavailable Tammy, Gia Admitting Unavailable Furlong, Fernie Primary Care Unavailable FURLONG, FERNIE Ricketts Attending Unavailable FURLONG, FERNIE Ricketts Referring Unavailable FURLONG, FERNIE Ricketts Primary Care Unavailable FURLONG, FERNIE Ricketts Referring Unavailable FURLONG, FERNIE Ricketts Primary Care Unavailable Kirsten RAND, Christian Rodríguez Attending Unavailable Kirsten RAND, Christian Rodríguez Attending Unavailable FURLONG, FERNIE G Referring Unavailable FURLONG, FERNIE G Primary Care Unavailable TAMMY, GIA Referring Unavailable FURLONG, FERNIE Ricketts Primary Care Unavailable FURLONG, FERNIE Ricketts Referring Unavailable FURLONG, FERNIE Ricketts Primary Care Unavailable FURLONG, FERNIE Ricketts Referring Unavailable FURLONG, FERNIE G Primary Care Unavailable FURLONG, FERNIE Ricketts Referring Unavailable FURLONG, FERNIE G Primary Care Unavailable TAMMY, GIA Referring Unavailable FURLONG, FERNIE Ricketts Primary Care Unavailable FURLONG, FERNIE G Referring [...] Adhesive Tape Substance Allergy 04-24-20 13 The [facility] Povidone-Iodine (1 source) Povidone-Iodine Drug Allergy 04-24-20 13 [facility] Sulfonamides (antibiotic) (1 source) Sulfonamides (Antibiotic) Drug Allergy 04-24-20 13 [facility] Tetracyclines (antibiotic) (1 source) Tetracyclines Drug Allergy 04-24-20 13 [facility] (20 sources) Povidone-Iodine; Translations: [POVIDONE-IODINE] Drug Allergy 11-25-19 15 rash [facility] [employer] Other (10 sources) Sulfonamides (Antibiotic) Propensity to adverse reactions rash [facility] [employer] Other (11 sources) Tetracycline Drug Allergy 11-16-19 24 [facility] (10 sources) Adhesive 1 x6yd Drug allergy rash [employer] Other (10 sources) Amlodipine & Diet Manage Prod Drug allergy rash [facility] [employer] Other (2 sources) Povidone-Iodine; Translations: [Betadine] Drug Allergy 04-23-[address] [facility]ository (20 sources) Contrast media; Translations: [RED DYE] Drug allergy (disorder) 05-04-20 [address] [facility] Repository (2 sources) Desonide Drug Allergy 04-23-20 [address] [facility] Repository (1 source) Sulfonamides (Antibiotic) Drug allergy (disorder) 04-23-20 13 The [facility] (1 source) Tetracycline Drug Allergy 04-23-20 13 [facility] (20 sources) Adhesive agent; Translations: [ADHESIVE] Propensity to adverse reactions to drug 11-25-19 15 Other (See Comments), Itching [facility] (20 sources) dilTIAZem; Translations: [DILTIAZEM] Drug Allergy 09-01-20 [facility] Work Phone: (20 sources) Linagliptin; Translations: [LINAGLIPTIN] Drug Allergy 09-01-20 [facility] (20 sources) Sulfonamides (Antibiotic); Translations: [SULFA (SULFONAMIDE ANTIBIOTICS)] Propensity to adverse reactions to drug 11-25-19 15 [facility] (20 sources) Tetracycline (class of antibiotic); Translations: [TETRACYCLINES] Propensity to adverse reactions to drug 11-25-19 15 [facility] (20 sources) Adhesive Tape-Silicones; Translations: [ADHESIVE TAPE-SILICONES] Propensity to adverse reactions to drug 05-04-20 [facility] Work Phone: (1 source) Adhesive Tape Drug allergy (disorder) 11-16-19 [facility] (1 source) Contrast media Drug allergy (disorder) 11-16-19 [facility] (1 source) Povidone-Iodine Drug Allergy 11-16-19 [facility] (1 source) Sulfonamides (Antibiotic) Drug allergy (disorder) 11-16-19 [facility] (1 source) Tetracycline Drug Allergy 11-16-19 [facility] (17 sources) SULFA DYNE; Translations: [SULFA DYNE] Propensity [...] as needed Orally TWICE A DAY Active [id number] 200 actuat albuterol 0.09 mg/actuat metered dose [...] morning. 0 Active take [address] tablets [address] [facility] every twenty-four hours Allopurinol 100 MG 2 tablet Orally Once a day for 90 days Active ASA 81 mg (10 sources) take 1 tablet by mouth once daily ASA 81 mg 1 Tablet Oral daily Active aspirin 81 mg delayed release oral tablet (19 sources) Platelet Aggregation Inhibitor, Nonsteroidal Anti-inflammatory Drug [...] tablet (20 sources) gamma-Aminobutyric Acid-ergic Agonist Start: 01-15-20 24 take 1 tablet by mouth once daily baclofen (LIORESAL) 10 mg tablet Take 1 tablet (10 mg total) by mouth nightly. 90 tablet 3 11/26/2023 Active take 1 tablet by mouth in the mo rning baclofen (LIORESAL) 10 mg tablet Take 1 tablet (10 mg total) by mouth in the morning. 0 Active biotin 10 mg oral tablet (20 sources) take 1 tablet by willa th once daily biotin 10 mg tablet Take 10 mg by mouth once daily. 0 Active take 1 capsule by mo ut every twenty-four hours Biotin Maximum Strength 5000 MCG 1 capsule Orally Once a day Active take 1 capsule by mo uth every twenty-four hours Biotin Maximum Strength 5000 MCG 1 capsule Orally Once a day Active Breo Ellipta 200-25 MCG/INH (3 sources) take 1 puff(s) by inhalation once daily Breo Ellipta 200-25 MCG/INH 1 puff Inhalation Once a day Active canagliflozin 100 mg oral tablet (13 sources) Sodium-Glucose Cotransporter 2 Inhibitor Start: 024 [...] / glucosamine hydrochloride 500 mg oral tablet (19 sources) take 1 tablet by mouth once daily glucosamine-chondroi tin 500-400 mg tablet Take 1 tablet by mouth once daily. 0 Active 0.5 ml dulaglutide 1.5 mg/ml auto-injector (1 source) GLP-1 Receptor Agonist Trulicity 0.75 MG/0.5ML as directed Subcutaneous ONCE A WEEK Active estrogens, conjugated (care home) 0.625 mg/ml vaginal cream (5 sources) Estrogen [...] disease, with long-term current use of insulin ([facility]) Inject 46 Units under the skin in [...] Active magnesium oxide 400 mg oral tablet (15 sources) Start: 07-20-2022 take 1 tablet by [...] For Her 50 + - Orally Active sjouxwpw-zflg-RS-ca lcium &mins (THERAGRAN-M) 9 mg iron-400 mcg tablet (19 sources) bchtzdaf-ytyb-OK -c alcium &mins (THERAGRAN-M) 9 mg iron-400 mcg tablet Take 1 tablet by mouth in the morning. 0 Active Suring 3-6-9 Complex - (10 sources) Suring 3-6-9 Complex - Orally Active omega-3 fatty acids-fish oil 300-1,000 mg capsule (19 sources) take 2 capsules by mouth in the morning omega-3 fatty acids-fish oil 300-1,000 mg capsule Take 2 capsules (2 g total) by mouth in the morning. 0 Active omeprazole 20 mg delayed release oral capsule (20 sources) Proton Pump Inhibitor Start: 05-07-2023 omeprazole (PriLOSEC) 20 mg capsule TAKE 1 CAPSULE TWICE A DAY 180 capsule 3 05/07/2023 Active take 1 capsule by mo uth every twenty-four hours Omeprazole 20 MG 1 [...] release oral tablet (20 sources) Methylxanthine Start: 023 theophylline (UNIPHYL) 400 mg 24 hr tablet [...] 50 ml magnesium sulfate 40 mg/ml injection (10 sources) Start: 01-30-2024 End: 01-30-2024 magnesium sulfate IVPB 2000 mg/50 mL in iso-osmotic water (40 mg/mL premix) Start: 01-23-2024 End: 01-23-2024 magnesium sulfate IVPB 2000 mg/50 mL in iso-osmotic water (40 mg/mL premix) Start: 01-16-2024 End: 01-16-2024 magnesium sulfate IVPB [...] ml sodium chloride 9 mg /ml injection (10 sources) Start: 01-30-2024 End: 01-30-2024 sodium chloride 0.9 % infusi on Start: 01-23-2024 End: 01-23-2024 sodium chloride 0.9 % infusi on Start: 01-16-2024 End: 01-16-2024 sodium chloride 0.9 [...] Classification Problem Date Documented Date Episodic/Chronic Asthma (19 sources) Asthma; Translations: [Unspecified asthma, uncomplicated] Onset: 2 09-01-2022 Chronic Cataract (19 sources) Bilateral cataracts; Translations: [Unspecified cataract] Onset: 2 09-01-2022 Chronic Chronic kidney disease (20 sources) Chronic kidney disease stage 3; Translations: [Chronic kidney disease, stage 3 (moderate)] Onset: 8 Resolved: 2 Chronic Chronic kidney disease (4 sources) Chronic kidney disease; Translations: [Chronic kidney disease, stage 3b] Onset: 4 Chronic obstructive pulmonary disease and bronchiectasis (19 sources) Chronic obstructive lung disease; Translations: [Chronic obstructive pulmonary disease, unspecified] Onset: 2 09-01-2022 Chronic Coronary atherosclerosis and other heart disease (20 sources) Coronary atherosclerosis; Translations: [Atherosclerotic heart disease of [place] coronary artery without angina pectoris] Onset: 2 [...] disease] Onset: 2 Resolved: 2 Chronic Osteoarthritis (19 sources) Osteoarthritis of knee; Translations: [Osteoarthritis of knee, unspecified] Onset: 7 11-14-2022 Chronic Other aftercare (3 sources) intermediate (current) use of insulin; Translations: [LONG-TERM CURRENT USE OF INSULIN] Onset: 2 Episodic Other diseases of kidney and ureters (10 sources) Secondary hyperparathyroidism; Translations: [Secondary hyperparathyroidism of renal origin] Chronic Other diseases of kidney and ureters (6 sources) Secondary hyperparathyroidism of renal origin; Translations: [SEC HYPERPARATHYROIDISM RENAL ORIGN] Onset: 2 Resolved: 2 Chronic Other eye disorders (19 sources) Posterior vitreous detachment; Translations: [Vitreous degeneration, unspecified eye] Onset: 3 07-24-2023 Chronic Other hereditary and degenerative nervous system conditions (19 sources) Essential tremor; Translations: [Essential tremor] Onset: [...] Chronic Other nutritional; endocrine; and metabolic disorders (19 sources) Morbid obesity; Translations: [Morbid (severe) obesity [...] 2 Resolved: 2 Episodic Residual codes; unclassified (19 sources) Obstructive sleep apnea syndrome; Translations: [Obstructive [...] Problem Date Documented Date Episodic/Chronic Allergic reactions (19 sources) Environmental allergy; Translations: [Other allergy status, other than to drugs and biological substances] Onset: 09-01-2022 09-01-2022 Episodic Biliary tract disease (19 sources) Disorder of gallbladder; Translations: [Disease of gallbladder, unspecified] Onset: 09-01-2022 09-01-2022 Episodic Fluid and electrolyte disorders (19 sources) Drug-induced hyperkalemia; Translations: [Hyperkalemia] Onset: 12-13-2017 09-01-2022 Episodic Gastritis and duodenitis (19 sources) Gastroduodenitis; Translations: [Gastroduodenitis, unspecified, without bleeding] Onset: 05-09-2017 05-09-2017 Episodic Genitourinary symptoms and ill-defined conditions (19 sources) Microalbuminuria; Translations: [Proteinuria, unspecified] Onset: 10-16-2016 09-01-2022 Episodic Mood disorders (19 sources) Mood disorders Onset: 10-18-2023 Resolved: 01-08-2024 10-18-2023 Neoplasms of unspecified nature or uncertain behavior (19 sources) Neoplasm of uncertain behavior of skin of finger; Translations: [Neoplasm of uncertain behavior of skin] Onset: 09-01-2022 09-01-2022 Episodic Other and unspecified benign neoplasm (19 sources) Gastric polyp; Translations: [Polyp of stomach and duodenum] Onset: 05-09-2017 05-09-2017 Episodic Other connective tissue disease (1 source) Muscle wasting and atrophy, not elsewhere classified, unspecified site; Translations: [MUSCLE WASTING ATROPHY NEC UNS SITE] Onset: 04-27-2022 Episodic Other lower respiratory disease (19 sources) Disorder of lung; Translations: [Other disorders of lung] Onset: 04-24-2013 11-14-2022 Episodic Other lower respiratory disease (19 sources) Dyspnea; Translations: [Dyspnea, unspecified] Onset: 04-24-2013 11-14-2022 Episodic Other nervous system disorders (19 sources) Paresthesia; Translations: [Paresthesia of skin] Onset: 09-01-2022 09-01-2022 Episodic Unclassified (1 source) LOW BACK PAIN, UNSPECIFIED; Translations: [LOW BACK PAIN, UNSPECIFIED] Onset: 08-02-2022 Results Test Name Value Interpretation Reference Range Facility MAGNESIUMon 01-28-2024 Magnesium [Mass/Vol] 1.8 mg/dL Normal 1.8-2.6 [facility] Comment on above: Performed By: #### 1 9123-9 #### [facility] ([id number]) [address] [address] #### JAS, 53140-4 #### [facility] ([id number]) [address] [place] [address], [address] [place] [address] MAGNESIUMon 01-21-2024 Magnesium [Mass/Vol] 1.7 mg/dL Low 1.8-2.6 [facility] Comment on above: Performed By: #### 1 9123-9 #### [facility] ([id number]) [address] [address] #### JAS, 10769-9 #### [facility] ([id number]) [address] [facility], [address] [place] [address] POTASSIUMon 01-21-2024 Potassium [Moles/Vol] 3.6 mmol/L Normal 3.5-5.0 [facility] Comment on above: Performed By: #### 1 9123-9 #### [facility] ([id number]) [address] [address] 39817 #### JAS, 78530-3 #### [facility] ([id number]) [facility] [facility], [address] [place] [address] MAGNESIUMon 01-14-2024 Magnesium [Mass/Vol] 1.6 mg/dL Low 1.8-2.6 [facility] Comment on above: Performed By: #### 1 9123-9 #### [facility] ([id number]) [address] [address]5866 #### JAS, 84120-2 #### [facility] ([id number]) [address] [place] [address], [address] [place] [address] MAGNESIUMon 01-07-2024 Magnesium [Mass/Vol] 1.7 mg/dL Low 1.8-2.6 [facility] Comment on above: Performed By: #### 1 9123-9 #### [facility] ([id number]) [address] [address] MAGNESIUMon 12-31-2023 Magnesium [Mass/Vol] 1.7 mg/dL Low 1.8-2.6 [facility] Comment on above: Performed By: #### 1 9123-9 #### [facility] ([id number]) [address] [address] MAGNESIUMon 12-24-2023 Magnesium [Mass/Vol] 1.6 mg/dL Low 1.8-2.6 [facility] Comment on above: Performed By: #### 1 9123-9 #### [facility] ([id number]) [address] [address] MAGNESIUMon 12-17-2023 Magnesium [Mass/Vol] 1.5 mg/dL Low 1.8-2.6 [facility] Comment on above: Performed By: #### 1 9123-9 #### [facility] ([id number]) [address] [address] MAGNESIUMon 12-10-2023 Magnesium [Mass/Vol] 1.7 mg/dL Low 1.8-2.6 [facility] Comment on above: Performed By: #### 1 9123-9 #### [facility] ([id number]) [address] [address] MAGNESIUMon 12-03-2023 Magnesium [Mass/Vol] 1.7 mg/dL Low 1.8-2.6 [facility] Comment on above: Performed By: #### 1 9123-9 #### [facility] ([id number]) [address] [address] COMPREHENSIVE METABOLIC PANE Jared 11-26-2023 Albumin [Mass/Vol] 3.9 g/dL Normal 3.2-5.3 [facility] Comment on above: Performed By: #### 1 9123-9 #### [facility] ([id number]) [address] [address] #### JAS, 62351-6 #### [facility] ([id number]) [address] [place] [address], [address] [place] [address] ALP [Catalytic activity/Vol] 122 U/L Normal 39-130 [facility] Comment on above: Performed By: #### 1 9123-9 #### [facility] ([id number]) [address] [address] #### CMP, 54307-2 #### [facility] ([id number]) [address], [address] [place] [address] ALT [Catalytic activity/Vol] 29 U/L Normal 0-31 [facility] Comment on above: Performed By: #### 1 9123-9 #### [facility] ([id number]) [address] [address] 75162 #### JAS, 19321-7 #### [facility] ([id number]) [address], [address] [place] [address] Anion gap [Moles/Vol] 9 mmol/L Normal 5-15 [facility] Comment on above: Performed By: #### 1 9123-9 #### [facility] ([id number]) [address] [address]99 #### JAS, 68529-7 #### [facility] ([id number]) [address], [address] [place] [address] AST [Catalytic activity/Vol] 22 U/L Normal 0-41 [facility] Comment on above: Performed By: #### 1 9123-9 #### [facility] ([id number]) [address] [address]84 #### JAS, 68378-8 #### [facility] ([id number]) [address], [address] [place] [address] Bilirubin [Mass/Vol] 0.4 mg/dL Normal 0.3-1.2 [facility] Comment on above: Performed By: #### 1 9123-9 #### [facility] ([id number]) [address] [address] #### JAS, 47345-3 #### [facility] ([id number]) [address], [address] [place] [address] Calcium [Mass/Vol] 9.7 mg/dL Normal 8.5-10.5 [facility] Comment on above: Performed By: #### 1 9123-9 #### [facility] ([id number]) [address] [address] 17866 #### JAS, 76167-8 #### [facility] ([id number]) [address], [address] [place] [address] Chloride [Moles/Vol] 103 mmol/L Normal 98-109 [facility] Comment on above: Performed By: #### 1 9123-9 #### [facility] ([id number]) [address] [address]44 #### JAS, 03680-8 #### [facility] ([id number]) [address] [facility] [facility], [address] [place] [address] CO2 [Moles/Vol] 30 mmol/L Normal 22-32 [facility] Comment on above: Performed By: #### 1 9123-9 #### [facility] ([id number]) [address] [address] 23512 #### JAS, 96660-3 #### [facility] ([id number]) [address] [facility], [address] [place] [address] Creatinine [Mass/Vol] 1.53 mg/dL High 0.40-1.00 [facility] Comment on above: Result Comment: METH OD TRACEABLE TO IDMS STANDARD Performed By: #### 1 9123-9 #### [facility] ([id number]) [address] [address] 07209 #### JAS, 19880-3 #### [facility] ([id number]) [address], [address] [place] [address] GFR/1.73 sq M.predicted among non-blacks MDRD (S/P/Bld) [Vol rate/Area] 34 mL/min/{1.73_m2} Low >59 [facility] Comment on above: Result Comment: Reported eGFR is based on the CKD-EPI 2020 equation that does not use a race coefficient. Performed By: #### 1 9123-9 #### [facility] ([id number]) [address] [address] 79663 #### JAS, 45887-0 #### [facility] ([id number]) [address], [address] [place] [address] Glucose [Mass/Vol] 165 mg/dL High 65-99 [facility] Comment on above: Performed By: #### 1 9123-9 #### [facility] ([id number]) [address] [address] 81992 #### JAS, 32272-6 #### [facility] ([id number]) [address], [address] [place] [address] Potassium [Moles/Vol] 4.4 mmol/L Normal 3.5-5.0 [facility] Comment on above: Performed By: #### 1 9123-9 #### [facility] ([id number]) [address] [address] 76834 #### JAS, 95752-2 #### [facility] ([id number]) [address], [address] [place] [address] Protein [Mass/Vol] 7.1 g/dL Normal 6.0-8.0 [facility] Comment on above: Performed By: #### 1 9123-9 #### [facility] ([id number]) [address] [address]757 #### JAS, 30318-5 #### [facility] ([id number]) [address], [address] [place] [address] Sodium [Moles/Vol] 142 mmol/L Normal 134-146 [facility] Comment on above: Performed By: #### 1 9123-9 #### [facility] ([id number]) [address] [address] 16836 #### JAS, 86507-4 #### [facility] ([id number]) [address], [address] [place] [address] Urea nitrogen [Mass/Vol] 43 mg/dL High 5-27 [facility] Comment on above: Performed By: #### 1 9123-9 #### [facility] ([id number]) [address] [address] 65559 #### JAS, 98498-6 #### [facility] ([id number]) [address] [facility], [address] [place] [address] HGB A1C (GLYCO-HGB)on 2023 Glucose [Mass/Vol] 163 mg/dL Normal [facility] Comment on above: Performed By: #### 1 9123-9 #### [facility] ([id number]) [address] [address] 66557 #### JAS, 29985-6 #### [facility] ([id number]) [address], [address] [place] [address] HbA1c (Bld) [Mass fraction] 7.3 % High 4.4-5.6 [facility] Comment on above: Result Comment: NOTE ADA Guidelines Result HgbA1c Normal : less than 5.7 % Prediabetes : 5.7 % to 6.4 % Diabetes : > 6.4 % Use with caution in patients with abnormal hemoglobin variants as the half-life of red blood cells and in vivo glycation rates are affected. Performed By: #### 1 9123-9 #### [facility] ([id number]) [address] [address]172 #### JAS, 12636-4 #### [facility] ([id number]) [address] [place] [address], [address] [place] [address] Lipid 1996 panelon 4 Cholesterol [Mass/Vol] 145 mg/dL Low 150-200 [facility] Comment on above: Performed By: #### 1 9123-9 #### [facility] ([id number]) [address] [address] 54547 #### JAS, 17212-7 #### [facility] ([id number]) [address] [place] [address], [address] [place] [address] Cholesterol in HDL [Mass/Vol] 53 mg/dL Normal >39 [facility] Comment on above: Result Comment: HDL <40 mg/dL - High Risk HDL > or = 40mg/dL- Desirable HDL >60 mg/dL - Negative Risk Performed By: #### 1 9123-9 #### [facility] ([id number]) [address] [address]198 #### JAS, 47240-7 #### [facility] ([id number]) [address] [place] [address], [address] [place] [address] Cholesterol in LDL [Mass/Vol] 43 mg/dL Normal <130 [facility] Comment on above: Result Comment: LDL <100 mg/dL - Desirable LDL >160 mg/dL - High Risk Performed By: #### 1 9123-9 #### [facility] ([id number]) [address] [address]3660 #### CMP, 49993-1 #### [facility] ([id number]) [address], [address] [place] [address] Cholesterol in VLDL [Mass/Vol] 49 mg/dL High 0-30 [facility] Comment on above: Performed By: #### 1 9123-9 #### [facility] ([id number]) [address] [address] #### CMP, 33277-1 #### [facility] ([id number]) [address], [address] [place] [address] CHOLESTEROL:HDL 2.7 Normal 1.0-5.0 [facility] Comment on above: Performed By: #### 1 9123-9 #### [facility] ([id number]) [address] [address] #### CMP, 95065-1 #### [facility] ([id number]) [address] [facility] [address], [address] [place] [address] Triglyceride [Mass/Vol] 245 mg/dL High 27-150 [facility] Comment on above: Performed By: #### 1 9123-9 #### [facility] ([id number]) [address] [address] #### CMP, 96607-3 #### [facility] ([id number]) [address], [address] [place] [address] MAGNESIUMon 11-26-2023 Magnesium [Mass/Vol] 1.8 mg/dL Normal 1.8-2.6 [facility] Comment on above: Performed By: #### 1 9123-9 #### [facility] ([id number]) [address] [address] #### CMP, 99420-4 #### [facility] ([id number]) [address] [facility] [place] [address] MICROALBUMIN - ALBUMIN:CREAT ININE URINE RATIOon 11-26-2023 ALB/CREAT RATIO 352.8 mg/g creat High 0.0-30.0 [facility] Comment on above: Performed By: #### M ALBU #### [facility] ([id number]) [address] [facility], [address] [place] [address] Albumin DL <= 20 mg/L (U) [Mass/Vol] 14.6 mg/dL High 0.0-1.9 [facility] Comment on above: Performed By: #### M ALBU #### [facility] ([id number]) [address] [facility], [address] [place] [address] URINE CREAT 41.38 mg/dL Normal [facility] Comment on above: Performed By: #### M ALBU #### [facility] ([id number]) [address], [address] [place] [address] Office Visiton 11-19-2023 Follow-up visit [id number] Adore Dugan 1940 F Date Provider Department Center 11/19/2023 [facility] Family History Problem Relation Age of Onset Heart attack Mother Family Status - Relation Status Age at Mother Level of Service:56403 CT OFFICE/OUTPATIENT ESTABLISHED LOW MDM 20 MIN Normal [facility] Magnesiumon 11-16-2023 Magnesium [Mass/Vol] 1.4 mg/dL Low 1.9-2.7 [facility] Comment on above: Result Comment: PERF ORMED BY: [facility] [address] [place] [address] PATHOLOGIST TECHNOLOGY APPLICATIONS CONSULTANT STONEY LINO M.D. Performed By: #### M G #### [facility] [address] [place] [address] [facility] Magnesium [Mass/volume] in S asiya or PlasmaOrdered By: Gia Munoz on 11-16-2023 Magnesium [Mass/Vol] 1.4 mg/dL 1.9-2.7 [facility] Multiple labsOrdered By: Mary Ann Carter on 11-16-2023 [facility] PTH INTACTon 01-16-2023 PTH, Intact 115 pg/mL Critically high 15-65 [facility] Comment on above: Performed By: #### M G, URIC, RENAL #### [facility] [address] [address] [address] Nacho Jeffery FERRITINon 01-15-2023 Ferritin [Mass/Vol] 304.0 ng/mL Critically high 8.0-252.[address] [facility] Comment on above: Performed By: #### M G, URIC, RENAL #### [facility] [address] [place] [address] Dr. Nacho Jeffery HEMOGRAM AND PLATELon 2022 Hematocrit (Bld) [Volume fraction] 36.0 % Normal 36.0-48.[address] [facility] Comment on above: Performed By: #### M G, URIC, RENAL #### [facility] [address] [address] [address] Nacho Jeffery Hemoglobin (Bld) [Mass/Vol] 11.6 g/dL Critically low 12.0-16.[address] [facility] Comment on above: Performed By: #### M G, URIC, RENAL #### [facility] [address] [address] [address] Nacho Jeffery MCH (RBC) [Entitic mass] 29.4 pg Normal 26.7-34.[address] [facility] Comment on above: Performed By: #### M G, URIC, RENAL #### [facility] [address] [address] [address] Nacho Jeffery MCHC (RBC) [Mass/Vol] 32.2 g/dL Normal 29.9-35.[address] [facility] Comment on above: Performed By: #### M G, URIC, RENAL #### [facility] [address] [address] [address] Nacho Jeffery MCV (RBC) [Entitic vol] 91.4 fL Normal 81.0-99.[address] [facility] Comment on above: Performed By: #### M G, URIC, RENAL #### [facility] [address] [place] [address] Dr. Nacho Jeffery PLT 202 103/ul Normal 150-450 [facility] Comment on above: Performed By: #### M G, URIC, RENAL #### [facility] [address] [place] [address] Dr. Nacho Jeffery RBC 3.94 106/ul Critically low 4.20-5.[address] [facility] Comment on above: Performed By: #### M Jamarcus, URIC, RENAL #### [facility] [address] [place] [address] Dr. Nacho Jeffery WBC 5.9 103/ul Normal 4.0-11.0 [facility] Comment on above: Performed By: #### Maryjane Ricketts URIC, RENAL #### [facility] [address] [place] [address] Dr. Nacho Jeffery IRON AND TIBCon 01-15-2023 % SATURATION 23.4 % Normal [facility] Comment on above: Performed By: #### M Jamarcus, URIC, RENAL #### [facility] [address] [place] [address] Dr. Nacho Jeffery Iron [Mass/Vol] 62.0 ug/dL Normal 50.0-170.[address] [facility] Comment on above: Performed By: #### M G, URIC, RENAL #### [facility] [address] [place] [address] Dr. Nacho Jeffery TIBC DIRECT 265.0 ug/dL Normal 250.0-450.0 [facility] Comment on above: Performed By: #### M G, URIC, RENAL #### [facility] [address] [place] [address] Dr. Nacho Jeffery MAGNESIUMon 01-15-2023 Magnesium [Mass/Vol] 1.5 mg/dL Critically low 1.8-2.4 [facility] Comment on above: Performed By: #### M G, URIC, RENAL #### [facility] [address] [address] [address] Nacho Jeffery RENAL FUNCTION PANELon 01-15 Albumin [Mass/Vol] 3.4 g/dL Normal 3.4-5.0 [facility] Comment on above: Performed By: #### M G, URIC, RENAL #### [facility] [address] [address] [address] Nacho Jeffery Calcium [Mass/Vol] 9.2 mg/dL Normal 8.5-10.1 [facility] Comment on above: Performed By: #### M G, URIC, RENAL #### [facility] [address] [address] [address] Nacho Jeffery Chloride [Moles/Vol] 104 mmol/L Normal 98-[address] [facility] Comment on above: Performed By: #### M G, URIC, RENAL #### [facility] [address] [place] [address] Dr. Nacho Jeffery CO2 [Moles/Vol] 30.8 mmol/L Normal 21.0-32.0 [facility] Comment on above: Performed By: #### M G, URIC, RENAL #### [facility] [address] [address] [address] Nacho Jeffery Creatinine [Mass/Vol] 1.52 mg/dL Critically high 0.55-1.[address] [facility] Comment on above: Performed By: #### M G, URIC, RENAL #### [facility] [address] [address] [address] Nacho Jeffery EGFR-AF NORWEGIAN 40 mL/min/1.73m2 Critically low >=60 [facility] Comment on above: Performed By: #### M G, URIC, RENAL #### [facility] [address] [address] [address] Nacho Jeffery EGFR-NON AF NORWEGIAN 33 mL/min/1.73m2 Critically low >=[address] [facility] Comment on above: Performed By: #### M G, URIC, RENAL #### [facility] [address] [address] [address] Nacho Jeffery Glucose [Mass/Vol] 172 mg/dL Critically high 74-106 [facility] Comment on above: Performed By: #### M G, URIC, RENAL #### [facility] [address] [place] [address] Dr. Nacho Jeffery Phosphate [Mass/Vol] 3.7 mg/dL Normal 2.6-4.[address] [facility] Comment on above: Performed By: #### M G, URIC, RENAL #### [facility] [address] [place] [address] Dr. Nacho Jeffery Potassium [Moles/Vol] 4.2 mmol/L Normal 3.5-5.[address] [facility] Comment on above: Performed By: #### M G, URIC, RENAL #### [facility] [address] [place] [address] Dr. Nacho Jeffery Sodium [Moles/Vol] 143 mmol/L Normal 136-145 [facility] Comment on above: Performed By: #### M G, URIC, RENAL #### [facility] [address] [place] [address] Dr. Nacho Jeffery Urea nitrogen [Mass/Vol] 56.0 mg/dL Critically high 7.0-18.[address] [facility] Comment on above: Performed By: #### M G, URIC, RENAL #### [facility] [address] [place] [address] Dr. Nacho Jeffery UA RANDOM W/MICROSCOPICon BACTERIA NONE SEEN Normal NONE SEEN [facility] Comment on above: Performed By: #### M G, URIC, RENAL #### [facility] [address] [place] [address] Dr. Nacho Jeffery Bilirubin Ql (U) Negative Normal NEGATIVE [facility] Comment on above: Performed By: #### M G, URIC, RENAL #### [facility] [address] [place] [address] Dr. Nacho Jeffery CAST NONE SEEN Normal NONE SEEN [facility] Comment on above: Performed By: #### M G, URIC, RENAL #### [facility] [address] [place] [address] Dr. Nacho Jeffery Clarity (U) CLEAR Normal CLEAR [facility] Comment on above: Performed By: #### M G, URIC, RENAL #### [facility] [address] [address] [address] Nacho Jeffery Color (U) LT. YELLOW Normal YELLOW [facility] Comment on above: Performed By: #### M G, URIC, RENAL #### [facility] [address] [address] [address] Nacho Jeffery Crystals LM Nom (Urine sed) NONE SEEN Normal NONE SEEN [facility] Comment on above: Performed By: #### M G, URIC, RENAL #### [facility] [address] [address] [address] Nacho Jeffery Epithelial cells LM Ql (Urine sed) RARE Normal NONE SEEN /RARE [facility] Comment on above: Performed By: #### M G, URIC, RENAL #### [facility] [address] [place] [address] Dr. Nacho Jeffery Glucose Ql (U) Negative Normal NEGATIVE [facility] Comment on above: Performed By: #### M G, URIC, RENAL #### [facility] [address] [address] [address] Nacho Jeffery Hemoglobin Ql (U) Negative Normal NEGATIVE [facility] Comment on above: Performed By: #### M G, URIC, RENAL #### [facility] [address] [address] [address] Nacho Jeffery Ketones Ql (U) Negative Normal NEGATIVE [facility] Comment on above: Performed By: #### M G, URIC, RENAL #### [facility] [address] [address] [address] Nacho Jeffery LEUKOCYTES TRACE Abnormal NEGATIVE [facility] Comment on above: Performed By: #### M G, URIC, RENAL #### [facility] [address] [address] [address] Nacho Jeffery MUCOUS NONE SEEN Normal NONE SEEN [facility] Comment on above: Performed By: #### M G, URIC, RENAL #### [facility] [address] [address] [address] Nacho Jeffery Nitrite Ql (U) Negative Normal NEGATIVE [facility] Comment on above: Performed By: #### M G, URIC, RENAL #### [facility] [address] [place] [address] Dr. Nacho Jeffery pH (U) 5.5 [pH] Normal 5-[address] [facility] Comment on above: Performed By: #### M G, URIC, RENAL #### [facility] [address] [address] [address] Nacho Jeffery RBC 0-2 Normal 0-[address] [facility] Comment on above: Performed By: #### M G, URIC, RENAL #### [facility] [address] [address] [address] Nacho Jeffery SPEC GRAVITY 1.015 Normal 1.005-<=1.025 [facility] Comment on above: Performed By: #### M G, URIC, RENAL #### [facility] [address] [place] [address] Dr. Nacho Jeffery UA PROTEIN Negative Normal NEGATIVE/ TRACE The [facility] Comment on above: Performed By: #### M G, URIC, RENAL #### [facility] [address] [address] [address] Nacho Jeffery Urobilinogen Qn (U) 0.2 {Zuleyka'U}/dL Normal 0.2 - 1. [address] [facility] Comment on above: Performed By: #### M G, URIC, RENAL #### [facility] [address] [address] [address] Nacho Jeffery WBC 2-5 Abnormal NONE SEEN The [facility] Comment on above: Performed By: #### M G, URIC, RENAL #### [facility] [address] [address] [address] Nacho Jeffery URIC ACID SERUMon 01-15-2023 Urate [Mass/Vol] 7.0 mg/dL Critically high 2.6-6.[address] [facility] Comment on above: Performed By: #### M G, URIC, RENAL #### [facility] [address] [address] [address] Nacho Jeffery URINE T PROTEIN CREAT RATIOo n 03-06-2023 Protein (U) [Mass/Vol] 13.4 mg/dL Critically high <=12.[address] [facility] Comment on above: Performed By: #### U RTPCR #### [facility] [address] [place] [address] Dr. Nacho Jeffery UR PROT CREAT RAT 0.24 Normal [facility] Comment on above: Performed By: #### U RTPCR #### [facility] [address] [address] [address] Nacho Jeffery URINE CREAT 56.90 mg/dL Normal 20.00-300.00 [facility] Comment on above: Performed By: #### U RTPCR #### [facility] [address] [place] [address] Dr. Nacho Jeffery VITAMIN D 25 OHon 01-15-2023 VIT D 25-OH 52.6 ng/mL Normal [facility] Comment on above: Performed By: #### M G, URIC, RENAL #### [facility] [address] [place] [address] Dr. Nacho Jeffery VIT D RANGES SEE BELOW Normal [facility] Comment on above: Result Comment: <20 ng/mL Vit D deficient 20 - <30 ng/mL Vit D insufficient 30 - 100 ng/mL Vit D sufficient >100 ng/mL Potential Toxicity Performed By: #### M G, URIC, RENAL #### [facility] [address] [place] [address] Dr. Nacho Jeffery Telemedicineon 12-06-2022 Telemedicine [id number] Adore Dugan 1940 F Date Provider Department Center 12/06/2022 [id number] [facility] Family History Problem Relation Age of Onset Heart attack Mother Family Status - Relation Status Age at Mother Level of Service:[address] CT OFFICE/OUTPATIENT EST PT MAY NOT REQ PHYS/QHP Normal [facility] GLYCOHEMOGLOBIN A1Con 2021 ADA RECOMMENDATION SEE BELOW Normal The [facility] Comment on above: Result Comment: ADA RECOMMENDED LIMIT 4.0 - 6.0 ADA THERAPEUTIC TARGET < 7.0 ACTION SUGGESTED > 7.0 Performed By: #### A 1C #### [facility] [address] [address] [address] Nacho Jeffery Glucose [Mass/Vol] 143 mg/dL Normal [facility] Comment on above: Performed By: #### A 1C #### [facility] [address] [address] [address] Nacho Jeffery HbA1c (Bld) [Mass fraction] 6.6 % Critically high 4.5-6.[address] [facility] Comment on above: Performed By: #### A 1C #### [facility] [address] [address] [address] Nacho Jeffery LIPID PROFILEon 11-09-2022 CHOL-HDL RATIO NORM SEE BELOW Normal [facility] Comment on above: Result Comment: 3.3 - 4.4 LOW RISK 4.4 - 7.1 AVERAGE RISK 7.1 - 11.0 MODERATE RISK >11.0 HIGH RISK Performed By: #### M G, URIC, RENAL #### [facility] [address] [place] [address] Dr. Nacho Jeffery Cholesterol [Mass/Vol] 141 mg/dL Normal <=[address] [facility] Comment on above: Performed By: #### M G, URIC, RENAL #### [facility] [address] [place] [address] Dr. Nacho Jeffery Cholesterol in HDL [Mass/Vol] 59 mg/dL Normal 40-[address] [facility] Comment on above: Performed By: #### M G, URIC, RENAL #### [facility] [address] [address] [address] Nacho Jeffery Cholesterol in LDL [Mass/Vol] 46.2 mg/dL Normal [facility] Comment on above: Performed By: #### M G, URIC, RENAL #### [facility] [address] [address] [address] Nacho Jeffery Cholesterol.total/Ch olesterol in HDL [Mass ratio] 2.4 {ratio} Normal [facility] Comment on above: Performed By: #### M G, URIC, RENAL #### [facility] [address] [address] [address] Nacho Jeffery HDL NORMAL > or = 60 mg/dl - LOW CARDIOVASCULAR RISK <40 mg/dl - HIGH CARDIOVASCULAR RISK Normal [facility] Comment on above: Performed By: #### M G, URIC, RENAL #### [facility] [address] [address] [address] Nacho Jeffery LDL CALC NORMAL SEE BELOW Normal [facility] Comment on above: Result Comment: <100 mg/dl OPTIMAL 100 - 129 mg/dl NEAR OR ABOVE OPTIMAL 130 - 159 mg/dl BORDERLINE HIGH 160 - 189 mg/dl HIGH >190 mg/dl VERY HIGH Performed By: #### M G, URIC, RENAL #### [facility] [address] [place] [address] Dr. Nacho Jeffery Triglyceride [Mass/Vol] 179 mg/dL Critically high <=[address] [facility] Comment on above: Performed By: #### M G, URIC, RENAL #### [facility] [address] [place] [address] Dr. Nacho Jeffery VLDL CALC 35.8 mg/dL Normal [facility] Comment on above: Performed By: #### M G, URIC, RENAL #### [facility] [address] [place] [address] Dr. Nacho Jeffery PROF 14(COMP METB)on 022 Albumin [Mass/Vol] 3.2 g/dL Critically low 3.4-5.0 Th e [facility] Comment on above: Performed By: #### M G, URIC, RENAL #### [facility] [address] [place] [address] Dr. Nacho Jeffery Albumin/Globulin [Mass ratio] 0.8 {ratio} Normal [facility] Comment on above: Performed By: #### M G, URIC, RENAL #### [facility] [address] [place] [address] Dr. Nacho Jeffery ALP [Catalytic activity/Vol] 109 U/L Normal 46-[address] [facility] Comment on above: Performed By: #### M G, URIC, RENAL #### [facility] [address] [place] [address] Dr. Nacho Jeffery ALT [Catalytic activity/Vol] 38 U/L Normal 14-[address] [facility] Comment on above: Performed By: #### M G, URIC, RENAL #### [facility] [address] [place] [address] Dr. Nacho Jeffery Anion gap [Moles/Vol] 13.7 mmol/L Normal [facility] Comment on above: Performed By: #### M G, URIC, RENAL #### [facility] [address] [place] [address] Dr. Nacho Jeffery AST [Catalytic activity/Vol] 27 U/L Normal 15-37 [facility] Comment on above: Performed By: #### M Jamarcus, URIC, RENAL #### [facility] [address] [place] [address] Dr. Nacho Jeffery Bilirubin [Mass/Vol] 0.4 mg/dL Normal 0.2-1.[address] [facility] Comment on above: Performed By: #### M G, URIC, RENAL #### [facility] [address] [place] [address] Dr. Nacho Jeffery Calcium [Mass/Vol] 9.2 mg/dL Normal 8.5-10.1 [facility] Comment on above: Performed By: #### M G, URIC, RENAL #### [facility] [address] [place] [address] Dr. Nacho Jeffery Chloride [Moles/Vol] 105 mmol/L Normal 98-107 [facility] Comment on above: Performed By: #### M G, URIC, RENAL #### [facility] [address] [place] [address] Dr. Nacho Jeffery CO2 [Moles/Vol] 29.5 mmol/L Normal 21.0-32.0 [facility] Comment on above: Performed By: #### M G, URIC, RENAL #### [facility] [address] [place] [address] Dr. Nacho Jeffery Creatinine [Mass/Vol] 1.62 mg/dL Critically high 0.55-1.[address] [facility] Comment on above: Performed By: #### M G, URIC, RENAL #### [facility] [address] [address] [address] Nacho Jeffery EGFR-AF NORWEGIAN 37 mL/min/1.73m2 Critically low >=[address] [facility] Comment on above: Performed By: #### M G, URIC, RENAL #### [facility] [address] [address] [address] Nacho Jeffery EGFR-NON AF NORWEGIAN 31 mL/min/1.73m2 Critically low >=60 [facility] Comment on above: Performed By: #### M G, URIC, RENAL #### [facility] [address] [address] [address] Nacho Jeffery Globulin (S) [Mass/Vol] 3.8 g/dL Normal [facility] Comment on above: Performed By: #### M G, URIC, RENAL #### [facility] [address] [place] [address] Dr. Nacho Jeffery Glucose [Mass/Vol] 102 mg/dL Normal 74-106 [facility] Comment on above: Performed By: #### M G, URIC, RENAL #### [facility] [address] [address] [address] Nacho Jeffery Potassium [Moles/Vol] 4.2 mmol/L Normal 3.5-5.[address] [facility] Comment on above: Performed By: #### M G, URIC, RENAL #### [facility] [address] [address] [address] Nacho Jeffery Protein [Mass/Vol] 7.0 g/dL Normal 6.4-8.2 [facility] Comment on above: Performed By: #### M G, URIC, RENAL #### [facility] [address] [address] [address] Nacho Jeffery Sodium [Moles/Vol] 144 mmol/L Normal 136-145 [facility] Comment on above: Performed By: #### M G, URIC, RENAL #### [facility] [address] [address] [address] Nacho Jeffery Urea nitrogen [Mass/Vol] 45.0 mg/dL Critically high 7.0-18.[address] [facility] Comment on above: Performed By: #### M G, URIC, RENAL #### [facility] [address] [address] [address] Nacho Jeffery Urea nitrogen/Creatinine [Mass ratio] 27.8 mg/mg Normal [facility] Comment on above: Performed By: #### M G, URIC, RENAL #### [facility] [address] [address] [address] Nacho Jeffery OSMOLALITY URINEon Osmolality, Urine 466 mOsmol/kg Normal [facility] Comment on above: Result Comment: 24 h r : 300 - 900 Random: 50 - 1400 After 12hr fluid restriction: >850 Performed By: #### M G, URIC, RENAL #### [facility] [address] [address] [address] Nacho Jeffery PTH INTACTon 07-13-2022 PTH, Intact 84 pg/mL Critically high 15-65 [facility] Comment on above: Performed By: #### P THINT #### [facility] [address] [address] [address] Nacho Jeffery VIT D 25-OH [facility]on 2021 Vitamin D, 25-Hydroxy 34.7 ng/mL Normal 30.0-100.[address] [facility] Comment on above: Result Comment: Radha min D deficiency has been defined by the [place] of Medicine and an Endocrine Society practice guideline as a level of serum 25-OH vitamin D less than 20 ng/mL (1,2). The Endocrine Society went on to further define vitamin D insufficiency as a level between 21 and 29 ng/mL (2). 1. IOM ([place] of Medicine). 2010. Dietary reference intakes for calcium and D. [place]: The National Academies Press. 2. Magdiel MF, Kb NC, Evens PEPPER, et al. Evaluation, treatment, and prevention of vitamin D deficiency: an Endocrine Society clinical practice guideline. JCEM. 2010; 96(7):1911-30. Performed By: #### M G, URIC, RENAL #### [facility] [address] [address] [address] Nacho Jeffery HEMOGRAM AND PLATELon 2021 Hematocrit (Bld) [Volume fraction] 35.5 % Critically low 36.0-48.[address] [facility] Comment on above: Performed By: #### M G, URIC, RENAL #### [facility] [address] [place] [address] Dr. Nacho Jeffery Hemoglobin (Bld) [Mass/Vol] 11.5 g/dL Critically low 12.0-16.0 [facility] Comment on above: Performed By: #### M G, URIC, RENAL #### [facility] [address] [place] [address] Dr. Nacho Jeffery MCH (RBC) [Entitic mass] 30.6 pg Normal 26.7-34.0 [facility] Comment on above: Performed By: #### M G, URIC, RENAL #### [facility] [address] [place] [address] Dr. Nacho Jeffery MCHC (RBC) [Mass/Vol] 32.4 g/dL Normal 29.9-35.2 [facility] Comment on above: Performed By: #### M G, URIC, RENAL #### [facility] [address] [place] [address] Dr. Nacho Jeffery MCV (RBC) [Entitic vol] 94.4 fL Normal 81.0-99.0 [facility] Comment on above: Performed By: #### M G, URIC, RENAL #### [facility] [address] [place] [address] Dr. Nacho Jeffery PLT 192 103/ul Normal 150-450 [facility] Comment on above: Performed By: #### M G, URIC, RENAL #### [facility] [address] [place] [address] Dr. Nacho Jeffery RBC 3.76 106/ul Critically low 4.20-5.[address] [facility] Comment on above: Performed By: #### M G, URIC, RENAL #### [facility] [address] [place] [address] Dr. Nacho Jeffery WBC 6.1 103/ul Normal 4.0-11.0 [facility] Comment on above: Performed By: #### M G, URIC, RENAL #### [facility] [address] [address] [address] Nacho Jeffery MAGNESIUMon 07-12-2022 Magnesium [Mass/Vol] 1.3 mg/dL Critically low 1.8-2.[address] [facility] Comment on above: Performed By: #### U CHRISTOFER, MG, RENAL #### [facility] [address] [place] [address] Dr. Nacho Jeffery RENAL FUNCTION PANELon 07-12 Albumin [Mass/Vol] 3.3 g/dL Critically low 3.4-5.0 [facility] Comment on above: Performed By: #### U CHRISTOFER, MG, RENAL #### [facility] [address] [place] [address] Dr. Nacho Jeffery Calcium [Mass/Vol] 9.1 mg/dL Normal 8.5-10.1 [facility] Comment on above: Performed By: #### U CHRISTOFER, MG, RENAL #### [facility] [address] [place] [address] Dr. Nacho Jeffery Chloride [Moles/Vol] 104 mmol/L Normal 98-[address] [facility] Comment on above: Performed By: #### U CHRISTOFER, MG, RENAL #### [facility] [address] [place] [address] Dr. Nacho Jeffery CO2 [Moles/Vol] 31.7 mmol/L Normal 21.0-32.0 [facility] Comment on above: Performed By: #### U CHRISTOFER, MG, RENAL #### [facility] [address] [place] [address] Dr. Nacho Jeffery Creatinine [Mass/Vol] 1.52 mg/dL Critically high 0.55-1.[address] [facility] Comment on above: Performed By: #### U CHRISTOFER, MG, RENAL #### [facility] [address] [place] [address] Dr. Nacho Jeffery EGFR-AF NORWEGIAN 40 mL/min/1.73m2 Critically low >=[address] [facility] Comment on above: Performed By: #### U CHRISTOFER, MG, RENAL #### [facility] [address] [address] [address] Nacho Jeffery EGFR-NON AF [place]GIAN 33 mL/min/1.73m2 Critically low >=[address] [facility] Comment on above: Performed By: #### U CHRISTOFER, MG, RENAL #### [facility] [address] [address] [address] Nacho Jeffery Glucose [Mass/Vol] 221 mg/dL Critically high 74-106 [facility] Comment on above: Performed By: #### U CHRISTOFER, MG, RENAL #### [facility] [address] [address] [address] Nacho Jeffery Phosphate [Mass/Vol] 3.8 mg/dL Normal 2.6-4.[address] [facility] Comment on above: Performed By: #### U CHRISTOFER, MG, RENAL #### [facility] [address] [address] [address] Nacho Jeffery Potassium [Moles/Vol] 4.1 mmol/L Normal 3.5-5.[address] [facility] Comment on above: Performed By: #### U CHRISTOFER, MG, RENAL #### [facility] [address] [address] [address] Nacho Jeffery Sodium [Moles/Vol] 143 mmol/L Normal 136-145 [facility] Comment on above: Performed By: #### U CHRISTOFER, MG, RENAL #### [facility] [address] [address] [address] Nacho Jeffery Urea nitrogen [Mass/Vol] 45.0 mg/dL Critically high 7.0-18.[address] [facility] Comment on above: Performed By: #### U CHRISTOFER, MG, RENAL #### [facility] [address] [address] [address] Nacho Jeffery UA RANDOM W/MICROSCOPICon BACTERIA NONE SEEN Normal NONE SEEN [facility] Comment on above: Performed By: #### M G, URIC, RENAL #### [facility] [address] [address] [address] Nacho Jeffery Bilirubin Ql (U) Negative Normal NEGATIVE [facility] Comment on above: Performed By: #### M G, URIC, RENAL #### [facility] [address] [address] [address] Nacho Jeffery CAST NONE SEEN Normal NONE SEEN [facility] Comment on above: Performed By: #### M G, URIC, RENAL #### [facility] [address] [address] [address] Nacho Jeffery Clarity (U) CLEAR Normal CLEAR [facility] Comment on above: Performed By: #### M G, URIC, RENAL #### [facility] [address] [address] [address] Nacho Jeffery Color (U) LT. YELLOW Normal YELLOW [facility] Comment on above: Performed By: #### M G, URIC, RENAL #### [facility] [address] [place] [address] Dr. Nacho Jeffery Crystals LM Nom (Urine sed) NONE SEEN Normal NONE SEEN [facility] Comment on above: Performed By: #### M G, URIC, RENAL #### [facility] [address] [place] [address] Dr. Nacho Jeffery Epithelial cells LM Ql (Urine sed) FEW Abnormal NONE SEEN /RARE [facility] Comment on above: Performed By: #### M G, URIC, RENAL #### [facility] [address] [place] [address] Dr. Nacho Jeffery Glucose Ql (U) Negative Normal NEGATIVE [facility] Comment on above: Performed By: #### M G, URIC, RENAL #### [facility] [address] [address] [address] Nacho Jeffery Hemoglobin Ql (U) Negative Normal NEGATIVE [facility] Comment on above: Performed By: #### M G, URIC, RENAL #### [facility] [address] [place] [address] Dr. Nacho Jeffery Ketones Ql (U) Negative Normal NEGATIVE [facility] Comment on above: Performed By: #### M G, URIC, RENAL #### [facility] [address] [place] [address] Dr. Nacho Jeffery LEUKOCYTES TRACE Abnormal NEGATIVE [facility] Comment on above: Performed By: #### M G, URIC, RENAL #### [facility] [address] [address] [address] Nacho Jeffery MUCOUS NONE SEEN Normal NONE SEEN [facility] Comment on above: Performed By: #### M G, URIC, RENAL #### [facility] [address] [address] [address] Nacho Jeffery Nitrite Ql (U) Negative Normal NEGATIVE [facility] Comment on above: Performed By: #### M G, URIC, RENAL #### [facility] [address] [address] [address] Nacho Jeffery pH (U) 6.0 [pH] Normal 5-9 [facility] Comment on above: Performed By: #### M G, URIC, RENAL #### [facility] [address] [place] [address] Dr. Nacho Jeffery RBC NONE SEEN Abnormal 0-2 [facility] Comment on above: Performed By: #### M G, URIC, RENAL #### [facility] [address] [place] [address] Dr. Nacho Jeffery SPEC GRAVITY 1.015 Normal 1.005-<=1.[address] [facility] Comment on above: Performed By: #### M G, URIC, RENAL #### [facility] [address] [place] [address] Dr. Nacho Jeffery UA PROTEIN Negative Normal NEGATIVE/ TRACE [facility] Comment on above: Performed By: #### M G, URIC, RENAL #### [facility] [address] [place] [address] Dr. Nacho Jeffery Urobilinogen Qn (U) 0.2 {Zuleyka'U}/dL Normal 0.2 - 1. 0 [facility] Comment on above: Performed By: #### M G, URIC, RENAL #### [facility] [address] [place] [address] Dr. Nacho Jeffery WBC 2-5 Abnormal NONE SEEN [facility] Comment on above: Performed By: #### M G, URIC, RENAL #### [facility] [address] [address] [address] Nacho Jeffery URIC ACID SERUMon 07-12-2022 Urate [Mass/Vol] 7.9 mg/dL Critically high 2.6-6.[address] [facility] Comment on above: Performed By: #### U CHRISTOFER, MG, RENAL #### [facility] [address] [address] [address] Nacho Jeffery URINE T PROTEIN CREAT RATIOo n 07-12-2022 Protein (U) [Mass/Vol] 17.5 mg/dL Critically high <=12.[address] [facility] Comment on above: Performed By: #### M G, URIC, RENAL #### [facility] [address] [address] [address] Nacho Jeffery UR PROT CREAT RAT 0.29 Normal [facility] Comment on above: Performed By: #### M G, URIC, RENAL #### [facility] [address] [address] [address] Nacho eJffery URINE CREAT 60.37 mg/dL Normal 20.00-300.00 [facility] Comment on above: Performed By: #### M G, URIC, RENAL #### [facility] [address] [address] [address] Nacho Jeffery ALBUMIN, RANDOM URINE W/CREA TININEon 05-11-2022 ALBUMIN, URINE 0.5 mg/dL Normal See Note: [facility] Comment on above: Result Comment: Refe rence Range: Reference Range Not established Performed By: #### 4 96, 7600, 6517, 23508 #### [facility] [address], [address] [place] [phone] Peer Specialist: Mauricio Kern MD ALBUMIN/CREATININE RATIO, RANDOM URINE [...] Performed By: #### 4 96, 7600, 6517, 20644 #### [facility] of [address], [address] [place] [address] Peer Specialist: Mauricio Kern MD Creatinine (U) [Mass/Vol] 74 mg/dL Normal 20-275 [facility] Comment on above: Performed By: #### 4 96, 7600, 6517, 31553 #### [facility] of [address], [address] [place] [address] Peer Specialist: Mauricio Kern MD BASIC METABOLIC PANELon 04-14 GLUCOSE Normal [facility] Comment on above: Result Comment: TEST NOT PERFORMED No specimen received. Performed By: #### 4 96, 7600, 6517, 24638 #### [facility] of [address], [address] [place] [address] Peer Specialist: Mauricio Kern MD HEMOGLOBIN A1con 05-11-2022 HEMOGLOBIN A1c Normal [facility] Comment on above: Result Comment: TEST NOT PERFORMED No specimen received. Performed By: #### 4 96, 7600, 6517, 06507 #### [facility] of [address], [address] [place] [address] Peer Specialist: Mauricio Kern MD LIPID PANEL, STANDARDon 04-14 CHOL/HDLC RATIO Normal [facility] Comment on above: Result Comment: TEST NOT PERFORMED No specimen received. Performed By: #### 4 96, 7600, 6517, 51711 #### [facility] of [address], [address] [place] [address] Peer Specialist: Mauricio Kern MD CHOLESTEROL, TOTAL Normal [facility] Comment on above: Result Comment: TEST NOT PERFORMED No specimen received. Performed By: #### 4 96, 7600, 6517, 78141 #### [facility] of [address], [address] [place] [address] Peer Specialist: Mauricio Kern MD HDL CHOLESTEROL Normal [facility] Comment on above: Result Comment: TEST NOT PERFORMED No specimen received. Performed By: #### 4 96, 7600, 6517, 30278 #### [facility] of [address], [address] [place] [address] Peer Specialist: Mauricio Kern MD LDL-CHOLESTEROL Normal [facility] Comment on above: Result Comment: TEST NOT PERFORMED No specimen received. Performed By: #### 4 96, 7600, 6517, 71052 #### [facility] of [address], [address] [place] [address] Peer Specialist: Mauricio Kern MD NON HDL CHOLESTEROL Normal [facility] Comment on above: Result Comment: TEST NOT PERFORMED No specimen received. Performed By: #### 4 96, 7600, 6517, 36737 #### [facility] of [address], [address] [place] [address] Peer Specialist: Mauricio Kern MD TRIGLYCERIDES Normal [facility] Comment on above: Result Comment: TEST NOT PERFORMED No specimen received. Performed By: #### 4 96, 7600, 6517, 89910 #### [facility] of [address], [address] [place] [address] Peer Specialist: Mauricio Kern MD BASIC METABOLIC PANEL 04-13 Calcium [Mass/Vol] 9.1 mg/dL Normal 8.6-10.4 [facility] Comment on above: Performed By: #### 1 0165, 496, 7600 #### [facility] [address], [address] [place] [address] Peer Specialist: Mauricio Kern MD Chloride [Moles/Vol] 105 mmol/L Normal 98-110 [facility] Comment on above: Performed By: #### 1 0165, 496, 7600 #### [facility] of [address], [address] [place] [address] Peer Specialist: Mauricio Kern MD CO2 [Moles/Vol] 25 mmol/L Normal 20-32 [facility] Comment on above: Performed By: #### 1 0165, 496, 7600 #### [facility] of [address], [address] [place] [address] Peer Specialist: Mauricio Kern MD Creatinine [Mass/Vol] 1.73 mg/dL High 0.60-0.93 [facility] Comment on above: Result Comment: For patients >49 years of age, the reference limit for Creatinine is approximately 13% higher for people identified as -Togolese. Performed By: #### 1 0165, 496, 7600 #### [facility] [address] [address] Peer Specialist: Mauricio Kern MD eGFR NON-AFR. NORWEGIAN 28 mL/min/1.73m2 Low > OR = 60 [facility] Comment on above: Performed By: #### 1 0165, 496, 7600 #### [facility] [address] [place] [address] Peer Specialist: Mauricio Kern MD GFR/1.73 sq M.predicted among blacks MDRD (S/P/Bld) [Vol rate/Area] 32 mL/min/{1.73_m2} Low > OR = 60 [facility] Comment on above: Performed By: #### 1 016, 496, 7600 #### [facility] [address] [address] Peer Specialist: Mauricio Kern MD Glucose [Mass/Vol] 137 mg/dL High 65-99 [facility] Comment on above: Result Comment: Fasting reference interval For someone without known diabetes, a glucose value >125 mg/dL indicates that they may have diabetes and this should be confirmed with a follow-up test. Performed By: #### 1 016, 496, 7600 #### [facility] [address] [place] [address] Peer Specialist: Mauricio Kern MD Potassium [Moles/Vol] 4.6 mmol/L Normal 3.5-5.3 [facility] Comment on above: Performed By: #### 1 0165, 496, 7600 #### [facility] [address] [place] [address] Peer Specialist: Mauricio Kern MD Sodium [Moles/Vol] 142 mmol/L Normal 135-146 [facility] Comment on above: Performed By: #### 1 0165, 496, 7600 #### [facility] [address], [address] [place] [address] Peer Specialist: Mauricio Kern MD Urea nitrogen [Mass/Vol] 65 mg/dL High 7-25 [facility] Comment on above: Performed By: #### 1 0165, 496, 7600 #### [facility] [address], [address] [place] [address] Peer Specialist: Mauricio Kern MD Urea nitrogen/Creatinine [Mass ratio] 38 mg/mg High 6-22 [facility] Comment on above: Performed By: #### 1 0165, 496, 7600 #### [facility] [address], [address] [place] [address] Peer Specialist: Mauricio Kern MD HEMOGLOBIN A1con 05-04-2022 HEMOGLOBIN [...] 1 0165, 496, 7600 #### [facility] [address], [address] [place] [address] Peer Specialist: Mauricio Kern MD LIPID PANEL, STANDARDon 04-13 Cholesterol [Mass/Vol] 163 mg/dL Normal <200 [facility] Comment on above: Order Comment: FASTI NG:YES PATIENT UNABLE TO VOID; ADVISED TO RETURN FOR COLLECTION. FASTING: YES Performed By: #### 1 0165, 496, 7600 #### [facility] [address], [address] [place] [address] Peer Specialist: Mauricio Kern MD Cholesterol in HDL [Mass/Vol] 51 mg/dL Normal > OR = 50 [facility] Comment on above: Order Comment: FASTI NG:YES PATIENT UNABLE TO VOID; ADVISED TO RETURN FOR COLLECTION. FASTING: YES Performed By: #### 1 0165, 494, 8440 #### [facility] [address], [address] [place] [address] Peer Specialist: Mauricio Kern MD Cholesterol in LDL [Mass/Vol] [...] LDL-C. Sean BREAUX et al. SHRUTHI. 2013;310(19): 2728-3762 (http://education.Outline App/faq/TIX277) Performed By: #### 1 0165, 493, 3570 #### [facility] [address], [address] [place] [address] Peer Specialist: Mauricio Kern MD Cholesterol.total/Ch olesterol in HDL [Mass ratio] 3.2 {ratio} Normal <5.0 [facility] Comment on above: Order Comment: FASTI NG:YES PATIENT UNABLE TO VOID; ADVISED TO RETURN FOR COLLECTION. FASTING: YES Performed By: #### 1 0165, 492, 4490 #### [facility] [address], [address] [place] [address] Peer Specialist: Mauricio Kern MD NON HDL CHOLESTEROL 112 [...] option. Performed By: #### 1 0165, 496, 7000 #### [facility] [address], [address] [place] [address] Peer Specialist: Mauricio Kern MD Triglyceride [Mass/Vol] 181 mg/dL High <150 [facility] Comment on above: Order Comment: FASTI NG:YES PATIENT UNABLE TO VOID; ADVISED TO RETURN FOR COLLECTION. FASTING: YES Performed By: #### 1 0165, 496, 7600 #### [facility] [address] [facility], [address] [place] [address] Peer Specialist: Mauricio Kern MD PTH INTACTon 03-31-2022 PTH, Intact 111 pg/mL Critically high 15-65 [facility] Comment on above: Performed By: #### M Jamarcus URIC, RENAL #### [facility] [address] [place] [address] Dr. Nacho Jeffery FERRITINon 03-30-2022 Ferritin [Mass/Vol] 479.0 ng/mL Critically high 8.0-252.[address] [facility] Comment on above: Performed By: #### M Jamarcus URIC, RENAL #### [facility] [address] [place] [address] Dr. Nacho Jeffery HEMOGRAM AND PLATELon 2021 Hematocrit (Bld) [Volume fraction] 38.1 % Normal 36.0-48.[address] [facility] Comment on above: Performed By: #### M G, URIC, RENAL #### [facility] [address] [address] [address] Nacho Jeffery Hemoglobin (Bld) [Mass/Vol] 12.9 g/dL Normal 12.0-16.[address] [facility] Comment on above: Performed By: #### M G URIC, RENAL #### [facility] [address] [place] [address] Dr. Nacho Jeffery MCH (RBC) [Entitic mass] 32.8 pg Normal 26.7-34.[address] [facility] Comment on above: Performed By: #### M G, URIC, RENAL #### [facility] [address] [address] [address] Nacho Jeffery MCHC (RBC) [Mass/Vol] 33.9 g/dL Normal 29.9-35.[address] [facility] Comment on above: Performed By: #### M G, URIC, RENAL #### [facility] [address] [address] [address] Nacho Jeffery MCV (RBC) [Entitic vol] 96.9 fL Normal 81.0-99.[address] [facility] Comment on above: Performed By: #### M G, URIC, RENAL #### [facility] [address] [address] [address] Nacho Jeffery PLT 191 103/ul Normal 150-450 [facility] [facility] Comment on above: Performed By: #### M G, URIC, RENAL #### [facility] [address] [address] [address] Nacho Jeffery RBC 3.93 106/ul Critically low 4.20-5.40 [facility] Comment on above: Performed By: #### M G, URIC, RENAL #### [facility] [address] [address] [address] Nacho Jeffery WBC 7.2 103/ul Normal 4.0-11.[address] [facility] Comment on above: Performed By: #### M G, URIC, RENAL #### [facility] [address] [address] [address] Nacho Jeffery IRON AND TIBCon 03-30-2022 % SATURATION 21.6 % Normal [facility] Comment on above: Performed By: #### M G, URIC, RENAL #### [facility] [address] [address] [address] Nacho Jeffery Iron [Mass/Vol] 63.0 ug/dL Normal 50.0-170.[address] [facility] Comment on above: Performed By: #### M G, URIC, RENAL #### [facility] [address] [address] [address] Nacho Jeffery TIBC DIRECT 292.0 ug/dL Normal 250.0-450.0 [facility] Comment on above: Performed By: #### M G, URIC, RENAL #### [facility] [address] [address] [address] Nacho Jeffery MAGNESIUMon 03-30-2022 Magnesium [Mass/Vol] 1.7 mg/dL Critically low 1.8-2.4 [facility] Comment on above: Performed By: #### M G, URIC, RENAL #### [facility] [address] [address] [address] Nacho Jeffery RENAL FUNCTION PANELon 03-30 Albumin [Mass/Vol] 3.4 g/dL Normal 3.4-5.0 The [facility] Comment on above: Performed By: #### M G, URIC, RENAL #### [facility] [address] [place] [address] Dr. Nacho Jeffery Calcium [Mass/Vol] 9.3 mg/dL Normal 8.5-10.1 [facility] Comment on above: Performed By: #### M G, URIC, RENAL #### [facility] [address] [address] [address] Nacho Jeffery Chloride [Moles/Vol] 102 mmol/L Normal 98-107 [facility] Comment on above: Performed By: #### M G, URIC, RENAL #### [facility] [address] [address] [address] Nacho Jeffery CO2 [Moles/Vol] 31.7 mmol/L Normal 21.0-32.0 The [facility] Comment on above: Performed By: #### M G, URIC, RENAL #### [facility] [address] [address] [address] Nacho Jeffery Creatinine [Mass/Vol] 2.05 mg/dL Critically high 0.55-1.[address] [facility] Comment on above: Performed By: #### M G, URIC, RENAL #### [facility] [address] [address] [address] Nacho Jeffery EGFR-AF NORWEGIAN 28 mL/min/1.73m2 Critically low >=60 [facility] Comment on above: Performed By: #### M G, URIC, RENAL #### [facility] [address] [address] [address] Nacho Jeffery EGFR-NON AF NORWEGIAN 23 mL/min/1.73m2 Critically low >=[address] [facility] Comment on above: Performed By: #### M G, URIC, RENAL #### [facility] [address] [address] [address] Nacho Jeffery Glucose [Mass/Vol] 194 mg/dL Critically high 74-106 [facility] Comment on above: Performed By: #### M G, URIC, RENAL #### [facility] [address] [place] [address] Dr. Nacho Jeffery Phosphate [Mass/Vol] 3.2 mg/dL Normal 2.6-4.[address] [facility] Comment on above: Performed By: #### M G, URIC, RENAL #### [facility] [address] [place] [address] Dr. Nacho Jeffery Potassium [Moles/Vol] 4.6 mmol/L Normal 3.5-5.[address] [facility] Comment on above: Performed By: #### M G, URIC, RENAL #### [facility] [address] [place] [address] Dr. Nacho Jeffery Sodium [Moles/Vol] 141 mmol/L Normal 136-145 [facility] Comment on above: Performed By: #### M G, URIC, RENAL #### [facility] [address] [place] [address] Dr. Nacho Jeffery Urea nitrogen [Mass/Vol] 64.0 mg/dL Critically high 7.0-18.[address] [facility] Comment on above: Performed By: #### M G, URIC, RENAL #### [facility] [address] [place] [address] Dr. Nacho Jeffery UA RANDOM W/MICROSCOPICon BACTERIA NONE SEEN Normal NONE SEEN The [facility] Comment on above: Performed By: #### M G, URIC, RENAL #### [facility] [address] [place] [address] Dr. Nacho Jeffery Bilirubin Ql (U) Negative Normal NEGATIVE [facility] Comment on above: Performed By: #### M G, URIC, RENAL #### [facility] [address] [address] [address] Nacho Jeffery CAST NONE SEEN Normal NONE SEEN The [facility] Comment on above: Performed By: #### M G, URIC, RENAL #### [facility] [address] [address] [address] Nacho Jeffery Clarity (U) CLEAR Normal CLEAR The [facility] Comment on above: Performed By: #### M G, URIC, RENAL #### [facility] [address] [address] [address] Nacho Jeffery Color (U) LT. YELLOW Normal YELLOW The [facility] Comment on above: Performed By: #### M G, URIC, RENAL #### [facility] [address] [place] [address] Dr. Nacho Jeffery Crystals LM Nom (Urine sed) NONE SEEN Normal NONE SEEN The [facility] Comment on above: Performed By: #### M G, URIC, RENAL #### [facility] [address] [place] [address] Dr. Nacho Jeffery Epithelial cells LM Ql (Urine sed) FEW Abnormal NONE SEEN /RARE The [facility] Comment on above: Performed By: #### M G, URIC, RENAL #### [facility] [address] [place] [address] Dr. Nacho Jeffery Glucose Ql (U) Negative Normal NEGATIVE [facility] Comment on above: Performed By: #### M G, URIC, RENAL #### [facility] [address] [address] [address] Nacho Jeffery Hemoglobin Ql (U) Negative Normal NEGATIVE The [facility] Comment on above: Performed By: #### M G, URIC, RENAL #### [facility] [address] [place] [address] Dr. Nacho Jeffery Ketones Ql (U) Negative Normal NEGATIVE [facility] Comment on above: Performed By: #### M G, URIC, RENAL #### [facility] [address] [place] [address] Dr. Nacho Jeffery LEUKOCYTES SMALL Abnormal NEGATIVE The [facility] Comment on above: Performed By: #### M G, URIC, RENAL #### [facility] [address] [address] [address] Nacho Jeffery MUCOUS NONE SEEN Normal NONE SEEN The [facility] Comment on above: Performed By: #### M G, URIC, RENAL #### [facility] [address] [address] [address] Nacho Jeffery Nitrite Ql (U) Negative Normal NEGATIVE [facility] Comment on above: Performed By: #### M G, URIC, RENAL #### [facility] [address] [address] [address] Nacho Jeffery pH (U) 5.5 [pH] Normal 5-9 [facility] Comment on above: Performed By: #### M G, URIC, RENAL #### [facility] [address] [place] [address] Dr. Nacho Jeffery RBC 0-2 Normal 0-2 [facility] Comment on above: Performed By: #### M G, URIC, RENAL #### [facility] [address] [place] [address] Dr. Nacho Jeffery SPEC GRAVITY 1.015 Normal 1.005-<=1.025 [facility] Comment on above: Performed By: #### M G, URIC, RENAL #### [facility] [address] [address] [address] Nacho Jeffery UA PROTEIN Negative Normal NEGATIVE/ TRACE The [facility] Comment on above: Performed By: #### M G, URIC, RENAL #### [facility] [address] [address] [address] Nacho Jeffery Urobilinogen Qn (U) 0.2 {Zuleyka'U}/dL Normal 0.2 - 1. [address] [facility] Comment on above: Performed By: #### M G, URIC, RENAL #### [facility] [address] [address] [address] Nacho Jeffery WBC 5-10 Abnormal NONE SEEN The [facility] Comment on above: Performed By: #### M G, URIC, RENAL #### [facility] [address] [place] [address] Dr. Nacho Jeffery URIC ACID SERUMon 03-30-2022 Urate [Mass/Vol] 7.0 mg/dL Critically high 2.6-6.[address] [facility] Comment on above: Performed By: #### M G, URIC, RENAL #### [facility] [address] [place] [address] Dr. Nacho Jeffery URINE T PROTEIN CREAT RATIOo n 03-30-2022 Protein (U) [Mass/Vol] 7.1 mg/dL Normal <=12.[address] [facility] Comment on above: Performed By: #### U RTPCR #### [facility] [address] [place] [address] Dr. Nacho Jeffery UR PROT CREAT RAT 0.06 Normal [facility] Comment on above: Performed By: #### U RTPCR #### [facility] [address] [place] [address] Dr. Nacho Jeffery URINE CREAT 113.23 mg/dL Normal 20.00-300.[address] [facility] Comment on above: Performed By: #### U RTPCR #### [facility] [address] [place] [address] Dr. Nacho Jeffery VITAMIN D 25 OHon 03-30-2022 VIT D 25-OH 57.4 ng/mL Normal The [facility] Comment on above: Performed By: #### M G, URIC, RENAL #### [facility] [address] [place] [address] Dr. Nacho Jeffery VIT D RANGES SEE BELOW Normal The [facility] Comment on above: Result Comment: <20 ng/mL Vit D deficient 20 - <30 ng/mL Vit D insufficient 30 - 100 ng/mL Vit D sufficient >100 ng/mL Potential Toxicity Performed By: #### M G, URIC, RENAL #### [facility] [address] [place] [address] Dr. Nacho Jeffery COMPREHENSIVE METABOLIC PANE Jared 08-30-2021 Albumin [Mass/Vol] 3.7 g/dL Normal 3.6-5.1 [facility] Comment on above: Performed By: #### 1 0231, 7600 #### [facility] of [address], [address] [place] [address] Peer Specialist: Mauricio Kern MD Albumin/Globulin [Mass ratio] 1.4 {ratio} Normal 1.0-2.5 [facility] Comment on above: Performed By: #### 1 0231, 7600 #### [facility] [address], [address] [place] [address] Peer Specialist: Mauricio Kern MD ALP [Catalytic activity/Vol] 98 U/L Normal 37-153 [facility] Comment on above: Performed By: #### 1 0231, 7600 #### [facility] [address], [address] [place] [address] Peer Specialist: Mauricio Kern MD ALT [Catalytic activity/Vol] 23 U/L Normal 6-29 [facility] Comment on above: Performed By: #### 1 0231, 7600 #### [facility] [address], [address] [place] [address] Peer Specialist: Mauricio Kern MD AST [Catalytic activity/Vol] 22 U/L Normal 10-35 [facility] Comment on above: Performed By: #### 1 0231, 7600 #### [facility] [address], [address] [place] [address] Peer Specialist: Mauricio Kern MD Bilirubin [Mass/Vol] 0.4 mg/dL Normal 0.2-1.2 [facility] Comment on above: Performed By: #### 1 0231, 7600 #### [facility] [address], [address] [place] [address] Peer Specialist: Mauricio Kern MD Calcium [Mass/Vol] 9.2 mg/dL Normal 8.6-10.4 [facility] Comment on above: Performed By: #### 1 0231, 7600 #### [facility] [address], [address] [place] [address] Peer Specialist: Mauricio Kern MD Chloride [Moles/Vol] 103 mmol/L Normal 98-110 [facility] Comment on above: Performed By: #### 1 023, 7600 #### [facility] [address] [address] Peer Specialist: Mauricio Kern MD CO2 [Moles/Vol] 28 mmol/L Normal 20-32 [facility] Comment on above: Performed By: #### 1 023, 7600 #### [facility] [address] [address] Peer Specialist: Mauricio Kern MD Creatinine [Mass/Vol] 2.22 mg/dL High 0.60-0.93 [facility] Comment on above: Result Comment: For patients >49 years of age, the reference limit for Creatinine is approximately 13% higher for people identified as -Togolese. Performed By: #### 1 230, 7600 #### [facility] [address] [address] Peer Specialist: Mauricio Kern MD eGFR NON-AFR. NORWEGIAN 21 mL/min/1.73m2 Low > OR = 60 [facility] Comment on above: Performed By: #### 1 023, 7600 #### [facility] [address] [address] Peer Specialist: Mauricio Kern MD GFR/1.73 sq M.predicted among blacks MDRD (S/P/Bld) [Vol rate/Area] 24 mL/min/{1.73_m2} Low > OR = 60 [facility] Comment on above: Performed By: #### 1 023, 7600 #### [facility] [address] [address] Peer Specialist: Mauricio Kern MD Globulin (S) [Mass/Vol] 2.7 g/dL Normal 1.9-3.7 [facility] Comment on above: Performed By: #### 1 023, 7600 #### [facility] [address] [address] Peer Specialist: Mauricio Kern MD Glucose [Mass/Vol] 107 mg/dL High 65-99 [facility] Comment on above: Result Comment: Fasting reference interval For someone without known diabetes, a glucose value between 100 and 125 mg/dL is consistent with prediabetes and should be confirmed with a follow-up test. Performed By: #### 1 0231, 7600 #### [facility] [address] [address] Peer Specialist: Mauricio Kern MD Potassium [Moles/Vol] 4.7 mmol/L Normal 3.5-5.3 [facility] Comment on above: Performed By: #### 1 0231, 7600 #### [facility] [address] [address] Peer Specialist: Mauricio Kern MD Protein [Mass/Vol] 6.4 g/dL Normal 6.1-8.1 [facility] Comment on above: Performed By: #### 1 0231, 7600 #### [facility] [address] [address] Peer Specialist: Mauricio Kern MD Sodium [Moles/Vol] 141 mmol/L Normal 135-146 [facility] Comment on above: Performed By: #### 1 0231, 7600 #### [facility] [address] [address] Peer Specialist: Mauricio Kern MD Urea nitrogen [Mass/Vol] 69 mg/dL High 7-25 [facility] Comment on above: Performed By: #### 1 0231, 7600 #### [facility] of [address] [address] Peer Specialist: Mauricio Kern MD Urea nitrogen/Creatinine [Mass ratio] 31 mg/mg High 6-22 [facility] Comment on above: Performed By: #### 1 0231, 7600 #### [facility] [address] [address] Peer Specialist: Mauricio Kern MD LIPID PANEL, [facility] 08-12 Cholesterol [Mass/Vol] 142 mg/dL Normal <200 [facility] Comment on above: Order Comment: FASTI NG:YES FASTING: YES Performed By: #### 1 0231, 7600 #### [facility] [address], [address] [place] [address] Peer Specialist: Mauricio Kern MD Cholesterol in HDL [Mass/Vol] 47 mg/dL Low > OR = 50 [facility] Comment on above: Order Comment: FASTI NG:YES FASTING: YES Performed By: #### 1 0231, 7600 #### [facility] [address], [address] [place] [address] Peer Specialist: Mauricio Kern MD Cholesterol in LDL [Mass/Vol] [...] LDL-C. Sean SS et al. SHRUTHI. 2013;310(19): 6684-8026 (http://education.Outline App/faq/ATO530) Performed By: #### 1 023, 0 #### [facility] [address], [address] [place] [address] Peer Specialist: Mauricio Kern MD Cholesterol.total/Ch olesterol in HDL [Mass ratio] 3.0 {ratio} Normal <5.0 [facility] Comment on above: Order Comment: FASTI NG:YES FASTING: YES Performed By: #### 1 0231, 7600 #### [facility] [address], [address] [place] [address] Peer Specialist: Mauricio Kern MD NON HDL CHOLESTEROL 95 mg/dL (calc) Normal <130 [facility] Comment on above: Order Comment: FASTI NG:YES FASTING: YES Result Comment: For patients with diabetes plus 1 major ASCVD risk factor, treating to a non-HDL-C goal of <100 mg/dL (LDL-C of <70 mg/dL) is considered a therapeutic option. Performed By: #### 1 230, 0 #### [facility] [address], [address] [place] [address] Peer Specialist: Mauricio Kern MD Triglyceride [Mass/Vol] 188 mg/dL High <150 [facility] Comment on above: Order Comment: FASTI NG:YES FASTING: YES Performed By: #### 1 230, 0 #### [facility] [address], [address] [place] [address] Peer Specialist: Mauricio Kern MD BASIC METABOLIC PANELon 05- Calcium [Mass/Vol] 10.0 mg/dL Normal 8.6-10.3 [facility] Comment on above: Performed By: #### 0 0071 #### [facility] [address] [place] [address], [place] Chloride [Moles/Vol] 101 mmol/L Normal 98-107 [facility] Comment on above: Performed By: #### 0 0071 #### [facility] [address] [place] [address], [place] CO2 [Moles/Vol] 28 mmol/L Normal 21-31 [place] Comment on above: Performed By: #### 0 0071 #### [facility] [address] [place] [address], [place] Creatinine [Mass/Vol] 1.96 mg/dL High 0.60-1.20 [facility] Comment on above: Performed By: #### 0 0071 #### [facility] [address] [place] [address], [place] eGFR- 30 ml/min/1.73sq m Abnormal >60 [facility] Comment on above: Result Comment: Calc ulation may not be valid for patients over 70 years Performed By: #### 0 0071 #### [facility] [address] [place] [address], [facility] eGFR- non- 24 ml/min/1.73sq m Abnormal >60 [facility] Comment on above: Result Comment: Calc ulation may not be valid for patients over 70 years Performed By: #### 0 0071 #### [facility] [address] [place] [address], [place] Glucose [Mass/Vol] 171 mg/dL High 70-100 [facility] Comment on above: Performed By: #### 0 0071 #### [facility] [address] [place] [address], [place] Potassium [Moles/Vol] 3.9 mmol/L Normal 3.5-5.1 The [facility] Comment on above: Performed By: #### 0 0071 #### [facility] [address] [place] [address], [place] Sodium [Moles/Vol] 139 mmol/L Normal 136-145 [facility] Comment on above: Performed By: #### 0 0071 #### [facility] [address] [place] [address], [place] Urea nitrogen [Mass/Vol] 66 mg/dL High 7-25 The [facility] Comment on above: Performed By: #### 0 0071 #### [facility] [address] [place] [address], [facility] Cardiovascular Lab Reporton 03-30-2021 Cardiovascular Lab Report [facility] Patient Name: Adore Dugan [facility] MR #: [id number] Physician: Moe Parham, Department of M.D. Medicine Service Date: 03/30/2021 Division of Birthdate: 1940 Cardiology Room #: Adult Cardiovascular Services [facility] [address] [place], [place] [address] Cardiovascular Laboratory Report FINAL IMPRESSIONS: 1. Moderate [...] enzyme inhibitor/receptor micki. 4. Follow up with [facility] Cardiology in the next 2 to 3 [...] the left radial artery was obtained. A 6-Saudi Arabian glide sheath was inserted without difficulty. Bilateral selective coronary angiography was performed using JL4 and a 4-Saudi Arabian 3DRC catheter. After reviewing the images and [...] P/Moe Parham M.D. Date Trans: 03/30/2021 03:19 P/mmo [id number] cc: Fernie Hackett M.D. [address] Randi maryjane, [address] [place] [id number] [facility] Vital Signs Date Time Vital Sign Value Performing Clinician Facility 01-30-2024 09:250400 Body height 165.1 cm Pfo 6 [facility] 01-30-2024 09:25-0400 Body mass index (BMI) [Ratio] 44.93 kg/m2 Pfo 6 [facility] 01-30-2024 09:25-0400 Body temperature 97.7 [degF] Pfo 6 [facility] 01-30-2024 09:25-0400 Body weight 122.47 kg Pfo 6 [facility] 01-30-2024 09:25-0400 Diastolic blood pressure 60 mm[Hg] Pfo 6 [facility] 01-30-2024 09:25-0400 Heart rate 56 /min Pfo 6 [facility] 01-30-2024 09:25-0400 Respiratory rate 18 /min Pfo 6 [facility] 01-30-2024 09:25-0400 SaO2% (BldA) [Mass fraction] 93 % Pfo 6 [facility] 01-30-2024 09:25-0400 Systolic blood pressure 168 mm[Hg] Pfo 6 [facility] 01-23-2024 09:33-0400 Body height 165.1 cm Pfo 6 [facility] 01-23-2024 09:33-0400 Body mass index (BMI) [Ratio] 45.93 kg/m2 Pfo 6 [facility] 01-23-2024 09:33-0400 Body temperature 97.39 [degF] Pfo 6 [facility] 01-23-2024 09:33-0400 Body weight 125.19 kg Pfo 6 [facility] 01-23-2024 09:33-0400 Diastolic blood pressure 73 mm[Hg] Pfo 6 [facility] 01-23-2024 09:33-0400 Heart rate 66 /min Pfo 6 [facility] 01-23-2024 09:33-0400 Respiratory rate 18 /min Pfo 6 [facility] 01-23-2024 09:33-0400 SaO2% (BldA) [Mass fraction] 98 % Pfo 6 [facility] 01-23-2024 09:33-0400 Systolic blood pressure 180 mm[Hg] Pfo 6 [facility] 01-16-2024 09:24-0500 Body height 165.1 cm Pfo 6 [facility] 01-16-2024 09:24-0500 Body mass index (BMI) [Ratio] 46.1 kg/m2 Pfo 6 [facility] 01-16-2024 09:24-0500 Body temperature 98.01 [degF] Pfo 6 [facility] 01-16-2024 09:24-0500 Body weight 125.65 kg Pfo 6 [facility] 01-16-2024 09:24-0500 Diastolic blood pressure 80 mm[Hg] Pfo 6 [facility] 01-16-2024 09:24-0500 Heart rate 71 /min Pfo 6 [facility] 01-16-2024 09:24-0500 Respiratory rate 18 /min Pfo 6 [facility] 01-16-2024 09:24-0500 SaO2% (BldA) [Mass fraction] 97 % Pfo 6 [facility] 01-16-2024 09:24-0500 Systolic blood pressure 180 mm[Hg] Pfo 6 [facility] 01-09-2024 09:36-0500 Body height 165.1 cm Pfo 3 [facility] 01-09-2024 09:36-0500 Body mass index (BMI) [Ratio] 46.1 kg/m2 Pfo 3 [facility] 01-09-2024 09:36-0500 Body temperature 97.9 [degF] Pfo 3 [facility] 01-09-2024 09:36-0500 Body weight 125.65 kg Pfo 3 [facility] 01-09-2024 09:36-0500 Diastolic blood pressure 75 mm[Hg] Pfo 3 [facility] 01-09-2024 09:36-0500 Heart rate 70 /min Pfo 3 [facility] 01-09-2024 09:36-0500 Respiratory rate 18 /min Pfo 3 [facility] 01-09-2024 09:36-0500 SaO2% (BldA) [Mass fraction] 97 % Pfo 3 [facility] 01-09-2024 09:36-0500 Systolic blood pressure 180 mm[Hg] Pfo 3 [facility] 01-02-2024 09:37-0500 Body temperature 98.01 [degF] Pfo 4 [facility] 01-02-2024 09:37-0500 Diastolic blood pressure 72 mm[Hg] Pfo 4 [facility] 01-02-2024 09:37-0500 Heart rate 62 /min Pfo 4 [facility] 01-02-2024 09:37-0500 Respiratory rate 18 /min Pfo 4 [facility] 01-02-2024 09:37-0500 SaO2% (BldA) [Mass fraction] 95 % Pfo 4 [facility] 01-02-2024 09:37-0500 Systolic blood pressure 184 mm[Hg] [facility] 4 [facility] 12-26-2023 09:37-0500 Body height 165.1 cm Pfo 4 [facility] 12-26-2023 09:37-0500 Body mass index (BMI) [Ratio] 46.1 kg/m2 Pfo 4 [facility] 12-26-2023 09:37-0500 Body temperature 97.7 [degF] Pfo 4 [facility] 12-26-2023 09:37-0500 Body weight 125.65 kg Pfo 4 [facility] 12-26-2023 09:37-0500 Diastolic blood pressure 64 mm[Hg] Pfo 4 [facility] 12-26-2023 09:37-0500 Heart rate 67 /min Pfo 4 [facility] 12-26-2023 09:37-0500 Respiratory rate 18 /min Pfo 4 [facility] 12-26-2023 09:37-0500 SaO2% (BldA) [Mass fraction] 96 % Pfo 4 [facility] 12-26-2023 09:37-0500 Systolic blood pressure 177 mm[Hg] Pfo 4 [facility] 12-19-2023 09:30-0500 Body height 165.1 cm Pfo 2 [facility] 12-19-2023 09:30-0500 Body mass index (BMI) [Ratio] 46.13 kg/m2 Pfo 2 [facility] 12-19-2023 09:30-0500 Body temperature 97.39 [degF] Pfo 2 [facility] 12-19-2023 09:30-0500 Body weight 125.74 kg Pfo 2 [facility] 12-19-2023 09:30-0500 Diastolic blood pressure 67 mm[Hg] Pfo 2 [facility] 12-19-2023 09:30-0500 Heart rate 67 /min Pfo 2 [facility] 12-19-2023 09:30-0500 Respiratory rate 18 /min Pfo 2 [facility] 12-19-2023 09:30-0500 SaO2% (BldA) [Mass fraction] 97 % Pfo 2 [facility] 12-19-2023 09:30-0500 Systolic blood pressure 196 mm[Hg] Pfo 2 [facility] 12-12-2023 09:25-0500 Body height 165.1 cm Pfo 2 [facility] 12-12-2023 09:25-0500 Body mass index (BMI) [Ratio] 45.43 kg/m2 Pfo 2 [facility] 12-12-2023 09:25-0500 Body temperature 97.5 [degF] Pfo 2 [facility] 12-12-2023 09:25-0500 Body weight 123.83 kg Pfo 2 [facility] 12-12-2023 09:25-0500 Diastolic blood pressure 71 mm[Hg] Pfo 2 [facility] 12-12-2023 09:25-0500 Heart rate 70 /min Pfo 2 [facility] 12-12-2023 09:25-0500 Respiratory rate 18 /min Pfo 2 [facility] 12-12-2023 09:25-0500 SaO2% (BldA) [Mass fraction] 98 % Pfo 2 [facility] 12-12-2023 09:25-0500 Systolic blood pressure 166 mm[Hg] Pfo 2 [facility] 11-28-2023 09:17-0500 Body height 165.1 cm Pfo 1 [facility] 11-28-2023 09:17-0500 Body mass index (BMI) [Ratio] 44.93 kg/m2 Pfo 1 [facility] 11-28-2023 09:17-0500 Body temperature 97.2 [degF] Pfo 1 [facility] 11-28-2023 09:17-0500 Body weight 122.47 kg Pfo 1 [facility] 11-28-2023 09:17-0500 Diastolic blood pressure 56 mm[Hg] Pfo 1 [facility] 11-28-2023 09:17-0500 Heart rate 79 /min Pfo 1 [facility] 11-28-2023 09:17-0500 Respiratory rate 18 /min Pfo 1 [facility] 11-28-2023 09:17-0500 SaO2% (BldA) [Mass fraction] 99 % Pfo 1 [facility] 11-28-2023 09:17-0500 Systolic blood pressure 156 mm[Hg] Pfo 1 [facility] 11-21-2023 10:01-0500 Body height 165.1 cm Pfo 1 [facility] 11-21-2023 10:01-0500 Body mass index (BMI) [Ratio] 44.6 kg/m2 Pfo 1 [facility] 11-21-2023 10:01-0500 Body temperature 97.81 [degF] [facility] 11-21-[facility]23 10:01-0500 Body weight 121.56 kg Pfo 1 [facility] 11-21-2023 10:01-0500 Diastolic blood pressure 52 mm[Hg] Pfo 1 [facility] 11-21-2023 10:01-0500 Heart rate 62 /min Pfo 1 [facility] 11-21-2023 10:01-0500 Respiratory rate 18 /min Pfo 1 [facility] [employer] [facility] 11-21-2023 10:01-0500 SaO2% (BldA) [Mass fraction] 94 % Pfo 1 [facility] 11-21-2023 10:01-0500 Systolic blood pressure 122 mm[Hg] Pfo 1 [facility] 11-16-2023 09:00-0500 Body temperature 96.6 [degF] DO Fernie Furlong Work Phone: [facility] 11-16-2023 09:00-0500 Diastolic blood pressure 74 mm[Hg] DO Fernie Furlong Work Phone: [facility] 11-16-2023 09:00-0500 Heart rate 71 /min DO Fernie Furlong Work Phone: [facility] 11-16-2023 09:00-0500 Respiratory rate 18 /min DO Fernie Furlong Work Phone: [facility] 11-16-2023 09:00-0500 SaO2% (BldA) [Mass fraction] 97 % DO Fernie Furlong Work Phone: [facility] 11-16-2023 09:00-0500 Systolic blood pressure 148 mm[Hg] DO Fernie Furlong Work Phone: [facility] 08-23-2023 12:20-0400 Body height 165.1 cm Gia Tammy Other [employer] Other 08-23-2023 12:20-0400 Body mass index (BMI) [Ratio] 44.09 kg/m2 Gia Tammy Other [employer] Other 08-23-2023 12:20-0400 Body temperature 96.6 [degF] Gia Tammy Other [employer] Other 08-23-2023 12:20-0400 Body weight 120.2 kg Gia Tammy Other [employer] Other 08-23-2023 12:20-0400 Diastolic blood pressure 86 mm[Hg] Gia Tammy Other [employer] Other 08-23-2023 12:20-0400 Respiratory rate 18 /min Gia Tammy Other [employer] Other 08-23-2023 12:20-0400 SaO2% (BldA) [Mass fraction] 96 % Gia Tammy Other [employer] Other 08-23-2023 12:20-0400 Systolic blood pressure 138 mm[Hg] Gia Tammy Other [employer] Other 01-25-2023 12:20-0400 Body height 165.1 cm Gia Tammy Other [employer] Other 01-25-2023 12:20-0400 Body mass index (BMI) [Ratio] 45.76 kg/m2 Gia Tammy Other [employer] Other 01-25-2023 12:20-0400 Body temperature 96.7 [degF] Gia Tammy Other [employer] Other 01-25-2023 12:20-0400 Body weight 124.74 kg Gia Tammy Other [employer] Other 01-25-2023 12:20-0400 Diastolic blood pressure 80 mm[Hg] Gia Tammy Other [employer] Other 01-25-2023 12:20-0400 Respiratory rate 18 /min Gia Tammy Other [employer] Other 01-25-2023 12:20-0400 SaO2% (BldA) [Mass fraction] 96 % Gia Tammy Other [employer] Other 01-25-2023 12:20-0400 Systolic blood pressure 139 mm[Hg] Gia Tammy Other [employer] Other 07-20-2022 13:00-0400 Body height 165.1 cm Gia Tammy Other [employer] Other 07-20-2022 13:00-0400 Body temperature 96 [degF] Gia Tammy Other [employer] Other 07-20-2022 13:00-0400 Diastolic blood pressure 71 mm[Hg] Gia Tammy Other [employer] Other 07-20-2022 13:00-0400 Respiratory rate 18 /min Gia Tammy Other [employer] Other 07-20-2022 13:00-0400 SaO2% (BldA) [Mass fraction] 96 % Gia Tammy Other [employer] Other 07-20-2022 13:00-0400 Systolic blood pressure 134 mm[Hg] Gia Tammy Other [employer] Other 04-06-2022 12:00-0400 Body height 165.1 cm Gia Tammy Other [employer] Other 04-06-2022 12:00-0400 Body mass index (BMI) [Ratio] 46.32 kg/m2 Gia Tammy Other [employer] Other 04-06-2022 12:00-0400 Body temperature 98 [degF] Gia Tammy Other [employer] Other 04-06-2022 12:00-0400 Body weight 126.28 kg Gia Tammy Other [employer] Other 04-06-2022 12:00-0400 Diastolic blood pressure 70 mm[Hg] Gia Tammy Other [employer] Other 04-06-2022 12:00-0400 Respiratory rate 20 /min Gia Tammy Other [employer] Other 04-06-2022 12:00-0400 SaO2% (BldA) [Mass fraction] 93 % Gia Tammy Other [employer] Other 04-06-2022 12:00-0400 Systolic blood pressure 122 mm[Hg] Gia Tammy Other [employer] Other 12-27-2021 16:20-0500 Body height 165.1 cm Gia Tammy Other [employer] Other 12-27-2021 16:20-0500 Body mass index (BMI) [Ratio] 46.29 kg/m2 Gia Tammy Other [employer] Other 12-27-2021 16:20-0500 Body temperature 96.2 [degF] Gia Tammy Other [employer] Other 12-27-2021 16:20-0500 Body weight 126.19 kg Gia Tammy Other [employer] Other 12-27-2021 16:20-0500 Diastolic blood pressure 78 mm[Hg] Gia Tammy Other [employer] Other 12-27-2021 16:20-0500 Respiratory rate 20 /min Gia Tammy Other [employer] Other 12-27-2021 16:20-0500 SaO2% (BldA) [Mass fraction] 95 % Gia Tammy Other [employer] Other 12-27-2021 16:20-0500 Systolic blood pressure 161 mm[Hg] Gia Tammy Other [employer] Other Encounters Encounter Date Encounter Type Care Provider Facility Start: 01-30-2024 End: 01-30-2024 [facility] Start: 01-30-2024 End: 01-30-2024 ambulatory Pfo Infusion Chair 6 Elida Ireland [facility] Comment on above: Hypomagnesemia (Prim fara Dx) Start: 01-28-2024 End: 01-29-2024 ambulatory [facility] Start: 01-23-2024 End: 01-23-2024 ambulatory [facility] Start: 01-23-2024 End: 01-23-2024 ambulatory Pfo Infusion Chair 6 Elida Ireland [facility] Comment on above: Hypomagnesemia (Prim fara Dx) Start: 01-21-2024 End: 01-22-2024 ambulatory Christian Curtis MD Facility:[facility] Start: 01-17-2024 Orders Only Fernie Molinamonica noguera DO [facility] Comment on above: Hypertension in sta e 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 ([facility]) (Primary Dx) Start: 01-16-2024 End: 01-16-2024 ambulatory [facility] Start: 01-16-2024 End: 01-16-2024 ambulatory Pfo Infusion Chair 6 Elida Ireland [facility] Comment on above: Hypomagnesemia (Prim fara Dx) Start: 01-14-2024 End: 01-15-2024 [facility] Start: 01-09-2024 End: 01-09-2024 ambulatory [facility] Start: 01-09-2024 End: 01-09-2024 ambulatory Pfo Infusion Chair 3 Elida Ireland [facility] Comment on above: Hypomagnesemia (Prim fara Dx) Start: 01-08-2024 End: 01-08-2024 Patient encounter procedure Fernie Hackett DO Work Phone: [facility] Comment on above: Medicare annual well ness visit, subsequent (Primary Dx); Screening for depression Start: 01-07-2024 End: 01-08-2024 [facility] Start: 01-02-2024 End: 01-11-2024 ambulatory [facility] Start: 01-02-2024 End: 01-02-2024 ambulatory Pfo Infusion Chair 4 Elida Ireland [facility] Comment on above: Hypomagnesemia (Prim fara Dx) Start: 12-31-2023 End: 01-01-2024 ambulatory [facility] Start: 12-26-2023 End: 12-26-2023 ambulatory [facility] Start: 12-26-2023 End: 12-26-2023 ambulatory Pfo Infusion Chair 4 Elida Ireland [facility] Comment on above: Hypomagnesemia (Prim fara Dx) Start: 12-24-2023 End: 12-25-2023 [facility] Start: 12-19-2023 End: [facility] Start: 12-19-2023 End: 12-19-2023 ambulatory Pfo Infusion Chair 2 Elida Ireland [facility] Comment on above: Hypomagnesemia (Prim fara Dx) Start: 12-17-2023 End: 12-18-2023 [facility] Start: 12-12-2023 End: 12-12-2023 [facility] Start: 12-12-2023 End: 12-12-2023 ambulatory Pfo Infusion Chair 2 Elida Ireland [facility] Comment on above: Hypomagnesemia (Prim fara Dx) Start: 12-11-2023 Refill Theresa Dhaval JEANNE [facility] Start: 12-10-2023 End: 12-11-2023 ambulatory [facility] Start: 12-07-2023 Orders Only Fernie noguera DO Work Phone: [facility] Start: 12-05-2023 Telephone encounter Gia Munoz [facility] Ne[facility] Start: 12-05-2023 End: 12-05-2023 ambulatory FERNIE HACKETT [facility] [employer] Other Start: 12-04-2023 Refill Fernie noguera DO Work Phone: [facility] Internal Medicine - Family Medicine Start: 12-03-2023 End: 12-04-2023 ambulatory GIA MUNOZ [facility] Start: 11-28-2023 End: 11-28-2023 ambulatory [facility] Start: 11-28-2023 End: 11-28-2023 ambulatory Pfo Infusion Bed 1 Elida Lucas [facility] Comment on above: Hypomagnesemia (Prim fara Dx) Start: 11-26-2023 End: 11-27-2023 ambulatory [facility] Start: 11-26-2023 End: 11-26-2023 [facility] Start: 11-26-2023 End: 11-26-2023 ambulatory [facility] Start: 11-21-2023 End: 11-21-2023 ambulatory Pfo Infusion Bed 1 Elida hu [facility] Comment on above: Hypomagnesemia (Prim fara Dx) Mixed hyperlipidemia (Primary Dx); Type 2 diabetes mellitus with stage 3b chronic kidney disease, with long-term current use of insulin ([facility]); Essential hypertension Start: 11-21-2023 End: 11-21-2023 ambulatory [facility] Start: 11-20-2023 Chart abstracting Felicity Ireland [facility] Start: 11-19-2023 End: 11-19-2023 ambulatory [facility] Comment on above: Hypomagnesemia (Prim fara Dx) Start: 11-16-2023 End: 11-16-2023 ambulatory Gia Munoz Facility:[facility] Start: 11-16-2023 End: 11-16-2023 ambulatory DO Fernie Molinalong Work Phone: [facility] Work Phone: Start: 11-16-2023 End: 11-16-2023 Discharged Recurring DO Fernie Mascorrong Work Phone: [facility] - [facility]/P Work Phone: Start: 11-12-2023 Refill Fernie Mascorro ng DO Work Phone: [facility] Start: 10-15-2023 End: 10-16-2023 ambulatory Christian Curtis MD Facility:[facility] Start: 08-23-2023 End: 08-23-2023 ambulatory Gia Tammy Other [employer] Other Start: 08-23-2023 Office outpatient vi sit 25 minutes Gia Tammy [facility] Start: 04-26-[address] FERNIE HACKETT Fac ility:[facility] Start: 01-25-2023 End: 01-26-[address] LUISA STERN . [employer] Other Start: 01-25-2023 Office outpatient vi sit 25 minutes Gia Tammy [facility] Start: 01-15-2023 End: 01-16-2023 ambulatory GIA TAMMY Facility:[facility] Start: 12-06-2022 End: 12-06-2022 ambulatory [facility] Start: 11-09-2022 End: 11-10-[address] FERNIE HACKETT Facility:[facility] Start: 10-26-2022 End: 10-27-[address] LUISA STERN . Facility:[facility] Start: 08-02-2022 End: 08-03-[address] LUISA STERN . Facility:[facility] Start: 07-20-2022 End: 07-20-2022 ambulatory Gia Tammy Other [employer] Other Start: 07-20-2022 Office outpatient vi sit 25 minutes Gia Tammy [facility] Start: 07-12-2022 End: 07-13-2022 ambulatory GIA TAMMY Facility:[facility] Start: 05-03-2022 End: 05-03-2022 ambulatory Gia Tammy Other [employer] Other Start: 05-03-2022 Telephone encounter Gia Tammy [facility] Start: 04-25-2022 End: 04-26-[address] LUISA STERN . Facility:[facility] Start: 04-06-2022 End: 04-06-2022 ambulatory Gia Tammy Other [employer] Other Start: 04-06-2022 Office outpatient vi sit 25 minutes Gia Tammy [facility] Start: 03-30-2022 End: 03-31-2022 ambulatory GIA TAMMY Facility:[facility] Start: 03-30-2022 End: 03-31-[address] LUISA STERN . Facility:[facility] Start: 12-27-2021 End: 12-27-2021 ambulatory Gia Tammy Other [employer] Other Start: 12-27-2021 Office outpatient vi sit 15 minutes Gia Tammy [facility] Start: 11-28-2021 End: 11-28-2021 ambulatory Gia Tammy Other [employer] Other Start: 11-28-2021 Telephone encounter Gia Tammy [facility] Start: 11-24-2021 End: 11-24-2021 ambulatory Gia Tammy Other [employer] Other Start: 11-24-2021 Telephone encounter Gia Tammy [facility] Start: 03-30-2021 End: 03-31-2021 ambulatory [facility] Facility:[facility] Procedures Date Procedure Procedure Detail Performing Clinician Start: 01-08-2024 Adult depression screening assessment Fernie Hackett DO Work Phone: Start: 11-26-2023 Adult depression screening assessment Pfo 1 Start: 11-16-2023 MULTIPLE LABS Not In Sy stem Ref Prov Start: 10-18-2023 Adult depression screening assessment Fernie Hackett DO Work Phone: Plan of Treatment Date Care Activity Detail Author Start: 09-30-2028 DTaP,Tdap and Td Vaccines (2 - Td or Tdap) DTaP,Tdap and Td Vaccines (2 - Td or Tdap) [facility] Start: 01-22-2025 Adult BMI Screening Adult BMI Screen ing [facility] Start: 01-22-2025 Tobacco Screening Tobacco Screening [facility] Start: 01-15-2025 Adult BMI Screening Adult BMI Screen ing [facility] Start: 01-13-2025 End: 01-13-2025 Patient encounter procedure 01/13/2025 12:40 PM EST [facility] [address] [place] [phone] [facility] Start: 01-09-2025 Adult BMI Screening Adult BMI Screen ing [facility] Start: 01-09-2025 Tobacco Screening Tobacco Screening [facility] Start: 01-08-2025 Depression Screening Depression Scre ening [facility] Start: 01-08-2025 Fall Risk Screening Fall Risk Screen ing [facility] Start: 01-08-2025 Medicare Annual Well ness Visit Medicare Annual Wellness Visit [facility] Start: 01-02-2025 Tobacco Screening Tobacco Screening [facility] Start: 12-26-2024 Adult BMI Screening Adult BMI Screen ing [facility] Start: 12-26-2024 Tobacco Screening Tobacco Screening [facility] Start: 12-19-2024 Adult BMI Screening Adult BMI Screen ing [facility] Start: 12-19-2024 Tobacco Screening Tobacco Screening [facility] Start: 12-12-2024 Adult BMI Screening Adult BMI Screen ing [facility] Start: 12-05-2024 Adult BMI Screening Adult BMI Screen ing [facility] Start: 12-05-2024 Tobacco Screening Tobacco Screening [facility] Start: 11-28-2024 Adult BMI Screening Adult BMI Screen ing [facility] Start: 11-28-2024 Tobacco Screening Tobacco Screening [facility] Start: 11-26-2024 Adult BMI Screening Adult BMI Screen ing [facility] Start: 11-26-2024 Depression Screening Depression Scre ening [facility] Start: 11-26-2024 Fall Risk Screening Fall Risk Screen ing [facility] Start: 11-26-2024 Tobacco Screening Tobacco Screening [facility] Start: 11-21-2024 Adult BMI Screening Adult BMI Screen ing [facility] Start: 10-18-2024 Adult BMI Screening Adult BMI Screen ing [facility] Start: 10-18-2024 Depression Screening Depression Scre ening [facility] Start: 10-18-2024 Tobacco Screening Tobacco Screening [facility] Start: 07-24-2024 Fall Risk Screening Fall Risk Screen ing [facility] Start: 05-27-2024 End: 05-27-2024 Patient encounter procedure 05/27/2024 1:30 PM EDT Office Visit [facility] [address] [place] [address] Fernie Hackett, DO [address], [facility] [place] [address] [facility] Start: 03-05-2024 End: 03-05-2024 ambulatory 03/05/2024 9:30 AM EDT Infusion Elida Ireland [facility] [address] [place] [phone] Elida Ireland [facility] Start: 02-27-2024 End: 02-27-2024 ambulatory 02/27/2024 9:30 AM EDT Infusion Elida Ireland [facility] [address] [place] [phone] Elida L Beka [facility] Start: 02-25-2024 End: 02-25-2024 Patient encounter procedure 02/25/2024 2:45 PM EDT Office Visit [facility] [address] [place] [address] Fernie Hackett DO [address], [place] [address] [facility] Start: 02-20-2024 End: 02-20-2024 ambulatory 02/20/2024 9:30 AM EDT Infusion Elida L Beka [facility] [address] [place] [phone] Elida L Beka [facility] Start: 02-13-2024 End: 02-13-2024 ambulatory 02/13/2024 9:30 AM EDT Infusion Elida L Beka [facility] [address] [place] [phone] Elida L Beka [facility] Start: 02-06-2024 End: 02-06-2024 ambulatory 02/06/2024 9:30 AM EDT Infusion Elida L Beka [facility] [address] [place] [phone] Elida René Beka [facility] Start: 01-30-2024 End: 01-30-2024 ambulatory 01/30/2024 9:30 AM EDT Infusion Elida René Beka [facility] [address] [place] [phone] Elida Ireland [facility] Start: 01-23-2024 End: 01-23-2024 ambulatory 01/23/2024 9:30 AM EDT Infusion Elida René Beka [facility] [address] [place] [phone] Elida Ireland [facility] Start: 01-16-2024 End: 01-16-2024 ambulatory 01/16/2024 9:30 AM EST Infusion Elida Ireland [facility] [place] [phone] Elida Ireland [facility] Start: 01-09-2024 End: 01-09-2024 ambulatory 01/09/2024 9:30 AM EST Infusion Elida Ireland [facility] [address] [place] [phone] Elida Ireland [facility] Start: 01-08-2024 End: 01-08-2024 Patient encounter procedure 01/08/2024 1:00 PM EST [facility] [place] [address] [facility] Start: 01-02-2024 End: 01-02-2024 ambulatory 01/02/2024 9:30 AM EST Infusion Elida Ireland [facility] [address] [place] [phone] Elida Ireland [facility] Start: 12-26-2023 End: 12-26-2023 ambulatory 12/26/2023 9:30 AM EST Infusion Elida Ireland [facility] [address] [place] [phone] Elida Ireland [facility] Start: 12-19-2023 End: 12-19-2023 ambulatory 12/19/2023 9:30 AM EST Infusion Elida Ireland [facility] [address] [place] [phone] Elida L Beka [facility] Start: 12-12-2023 Administration of varicella zoster vaccine Zoster (Shingles) Vaccine (1 of 2) [employer] Comment on above: Postponed from 03/12 (Patient Refused) Start: 12-12-2023 Medicare Annual Well ness Visit Medicare Annual Wellness Visit [employer] Start: 12-12-2023 End: 12-12-2023 ambulatory 12/12/2023 9:30 AM EST Infusion Elida Ireland [facility] [address] [place] [phone] Elida Ireland [facility] Start: 12-05-2023 End: 12-05-2023 ambulatory 12/05/2023 9:30 AM EST Infusion Elida Ireland [facility] [address] [place] [phone] Elida Ireland [facility] Start: 11-28-2023 End: 11-28-2023 ambulatory 11/28/2023 9:30 AM EST Infusion Elida Ireland [facility] [address] [place] [phone] Elida Ireland [facility] Start: 11-26-2023 End: 11-26-2023 Patient encounter procedure 11/26/2023 1:30 PM EST Office Visit [facility] [address] [place] [address] Fernie Hackett, DO [address], [facility] [place] [address] [facility] Start: 11-21-2023 End: 11-21-2023 ambulatory 11/21/2023 9:30 AM EST Infusion Elida Ireland [facility] [address] [place] [phone] Elida Ireland [facility] Start: 07-13-2023 COVID-19 Vaccine ( season) COVID-19 Vaccine ( season) [facility] Start: 03-12-2015 Administration of varicella zoster vaccine Zoster (Shingles) Vaccine (1 of 2) [facility] Start: 1958 Adult BMI Follow Up Plan Adult BMI F ollow Up Plan [facility] End: 11-21-2024 Comprehensive metabolic 2000 panel - Serum or Plasma Comprehensive metabolic panel Lab Routine Essential hypertension 1 Occurrences starting 11/21/2023 until 11/21/2024 [employer] Work Phone: Comment on above: 1 Occurrences starti ng 11/21/2023 until 11/21/2024 End: 11-21-2024 Hemoglobin A1c/Hemoglobin.total in Blood Hemoglobin A1c Lab Routine Type 2 diabetes mellitus with stage 3b chronic kidney disease, with long-term current use of insulin ([facility]) 1 Occurrences starting 11/21/2023 until 11/21/2024 [facility] Comment on above: 1 Occurrences starti ng 11/21/2023 until 11/21/2024 End: 11-21-2024 Lipid panel Lipid panel Lab Routine Mixed hyperlipidemia 1 Occurrences starting 11/21/2023 until 11/21/2024 [facility] Comment on above: 1 Occurrences starti ng 11/21/2023 until 11/21/2024 End: 11-21-2024 Microalbumin - Albumin: Creatinine Urine Ratio Microalbumin - Albumin: Creatinine Urine Ratio Lab Routine Type 2 diabetes mellitus with stage 3b chronic kidney disease, with long-term current use of insulin ([facility]) 1 Occurrences starting 11/21/2023 until 11/21/2024 [employer] Comment on above: 1 Occurrences starti ng 11/21/2023 until 11/21/2024 End: 01-16-2025 Potassium [Moles/volume] in Serum or Plasma Potassium Lab Routine 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 ([facility]) 1 Occurrences starting 01/17/2024 until 01/16/2025 [employer] Work Phone: Comment on above: 1 Occurrences starti ng 01/17/2024 until 01/16/2025 Immunizations Immunization Date Immunization Notes Care Provider [facility] 08-31-2021 Influenza, High-dose , Quadrivalent Fernierajinder Hackett DO Work Phone: [employer] 02-01-2021 COVID-19, mRNA, LNP- S, PF, 30mcg/0.3mL Dose Fernie Roxann DO Work Phone: [facility] 01-10-2021 COVID-19, mRNA, LNP- S, PF, 30mcg/0.3mL Dose Fernie Furlong DO Work Phone: [facility] 07-29-2020 influenza, high dose seasonal, preservative-free Fernie Furlong DO Work Phone: [facility] 09-03-2019 influenza, high dose seasonal, preservative-free Fernie Furlong DO Work Phone: [facility] 09-30-2018 tetanus toxoid, redu kiran diphtheria toxoid, and acellular pertussis vaccine, adsorbed Fernie Furlong DO Work Phone: [facility] 09-19-2018 influenza, high dose seasonal, preservative-free Fernie Furlong DO Work Phone: [facility] 09-03-2017 influenza virus vacc ine, unspecified formulation Fernie Furlong DO Work Phone: [facility] 07-27-2015 influenza, seasonal, injectable, preservative free Fernie Furlong DO Work Phone: [facility] 07-27-2015 seasonal influenza, intradermal, preservative free Fernie Furlong DO Work Phone: [facility] 01-15-2015 zoster vaccine, live Fernie Furlong DO Work Phone: [facility] 01-15-2015 zoster vaccine, unspecified formulation Fernie Furlong DO Work Phone: [facility] 07-16-2014 influenza, seasonal, injectable Fernie Furlong DO Work Phone: [facility] 10-20-2013 pneumococcal conjuga te vaccine, 13 valent Fernie Furlong DO Work Phone: [facility] 08-30-2011 tetanus and diphther ia toxoids, not adsorbed, for adult use Fernie Furlong DO Work Phone: [employer] 08-20-2008 pneumococcal polysaccharide vaccine, 23 valent Fernie Hackett DO [facility] Payers Date Payer Category Payer Self-pay [id number] 2022 Unknown 2015 Private Health Insurance [facility] SUPPLEMENT [id number] 2015-Present [phone] [address] [place] [address] [id number] 2007 Medicare [id number] 1959 Medicare [id number] 1959 Unknown [id number] 1942 Unknown [id number] 2.16.840.1.904737.3.579.2 .647 1942 Unknown [id number] 2.16.840.1.205274.3.579.2 .593 1942 Unknown [id number] 2.16.840.1.191394.3.579.2 .593 1942 Unknown [id number] 2.16.840.1.206260.3.579.2 .593 1942 Unknown [id number] 2.16.840.1.899020.3.579.2 .593 1942 Unknown [id number] 2.16.840.1.424657.3.579.2 .593 1942 Unknown [id number] 2.16.840.1.754278.3.579.2 .593 1942 Unknown [id number] 2.16.840.1.834926.3.579.2 .593 1942 Unknown [id number] 2.16.840.1.627831.3.579.2 .593 1942 Unknown [id number] 2.16.840.1.548247.3.579.2 .593 1942 Unknown [id number] 2.16.840.1.936711.3.579.2 .593 1942 Unknown [id number] 2.16.840.1.255969.3.579.2 .593 1942 Unknown [id number] 2.16.840.1.125766.3.579.2 .1286 1942 Unknown [id number] 2.16.840.1.958990.3.579.2 .1286 1942 Unknown [id number] 2.16.840.1.591687.3.579.2 .196 1942 Unknown [id number] 2.16.840.1.431962.3.579.2 .196 1942 Unknown [id number] 2.16.840.1.526884.3.579.2 .1286 1942 Unknown [id number] 2.16.840.1.456826.3.579.2 .1286 1942 Unknown [id number] 2.16.840.1.668238.3.579.2 .1286 1942 Unknown [id number] 2.16.840.1.300337.3.579.2 .128 1942 Unknown [id number] 2.16.840.1.547693.3.579.2 .1286 1942 Unknown [id number] 2.16.840.1.145209.3.579.2 .128 1942 Unknown [id number] 2.16.840.1.960943.3.579.2 .1286 1942 Unknown [id number] 2.16.840.1.622888.3.579.2 .1286 1942 Unknown [id number] 2.16.840.1.188175.3.579.2 .128 1942 Unknown [id number] 2.16.840.1.450297.3.579.2 .128 1942 Unknown [id number] 2.16.840.1.317185.3.579.2 .1285 1942 Unknown [id number] 2.16.840.1.404650.3.579.2 .128 1942 Unknown [id number] 2.16.840.1.676864.3.579.2 .1285 1942 Unknown [id number] 2.16.840.1.247082.3.579.2 .128 1942 Unknown [id number] 2.16840.1.581027.3.579.2 .1285 1942 Unknown [id number] 2.16840.1.766658.3.579.2 .128 1942 Unknown [id number] 2.16.840.1.827730.3.579.2 .1285 1942 Unknown [id number] 2.16.840.1.041219.3.579.2 .128 1942 Unknown [id number] 2.16840.1.620598.3.579.2 .128 1942 Unknown [id number] 2.16840.1.063218.3.579.2 .128 1942 Unknown [id number] 2.16840.1.890716.3.579.2 .1286 Private Health Insurance [facility] [id number] Unknown [id number] 2.16.840.1.167927.3.579.2 .531 Social History Date Type Detail Facility Unknown if ever smoked [facility] Other Start: 10-18-2023 End: 01-08-2024 [facility] Start: 05-04-2017 Tobacco smoking stat us WIIS [facility] smoked tobacco [facility] Start: 05-04-2017 Tobacco use and exposure Smokeless tobacco non-user [facility] Start: 10-18-2023 End: 01-30-2024 Alcohol intake Current drinker of alcohol (finding) [facility] Start: 10-18-2023 End: 01-08-2024 Alcohol intake [facility] Adolescent depressio n screening assessment 0 [facility] Start: 1940 [facility] Start: 1940 Sex Assigned At Female F [facility] Has the [employer], [employer], oil, or water company threatened to shut off services in your home in past 12Mo No [facility] Are you now , , , , never or living with a partner? [facility] How often to you hav e a drink containing alcohol? Never [facility] Do you feel stress - tense, restless, nervous, or anxious, or unable to sleep at night because your mind is troubled all the time - these days [OSQ] Not at all [facility] Medical Equipment Procedure Code Equipment Code Equipment Origin al Text Equipment Identifier Dates 1 strip by other route in the morning and 1 strip before bedtime. [id number] Start: 08-30-2023 1 Lancet. by miscellaneous route in the morning and 1 Lancet. before bedtime. [id number] Start: 08-30-2023 USE 1 NEEDLE THR EE TIMES A DAY [id number] Start: 07-23-2023 Clinical Notes 12-27-2021 to 01-30-2024 Fannie Delgado RN - 01/30/2024 9:30 AM Twin Delgado RN - 01/23/2024 9:30 AM Daina Chopra RN - 01/16/2024 9:30 AM Kenisha Chopra RN - 01/09/2024 9:30 AM EST Note Date & Type Note Facility 01-30-2024 History of Presen t illness Narrative Patient is here for 2g IV magnesium as scheduled. Mg level 1.8. PIV initiated, blood return noted, flushes with ease. NS started at KVO. Magnesium infused over 2 hours. Line flushed. Pt tolerated well. PIV dc'd, pressure dressing applied. Pt dc'd in stable ambulatory condition with spouse. documented in this encounter [facility] 01-23-2024 History of Presen t illness Narrative Patient is here for 2g IV magnesium as scheduled. Mg level 1.7. PIV initiated on second attempt, blood return noted, flushes with ease. NS started at KVO. Magnesium infused over 2 hours. Line flushed. Pt tolerated well. PIV dc'd, pressure dressing applied. Pt dc'd in stable ambulatory condition with spouse. documented in this encounter [facility] 01-16-2024 History of Presen t illness Narrative [...] of upcoming appointments. documented in this encounter [facility] 01-09-2024 History of Presen t illness Narrative Pt here for 2g IV magnesium for mg level of 1.7. Tolerating infusions well. PIV initiated to RFA. Brisk blood return, flushes with ease. NS started at KVO. Magnesium infused over 2 hours. Pt tolerated well. PIV flushed and dc'd. Pressure dressing applied. Dc'd in stable condition. documented in this encounter [facility] 01-08-2024 History of Presen t illness Narrative Subjective SUBJECTIVE: Patient ID: Adore Dugan is a 83 y.o. female who presents [...] Do you have a durable power of erisa attorney?: Yes Cognitive Screening Do you have trouble [...] year (around 01/08/2025). documented in this encounter [facility] 01-02-2024 History of Presen t illness Narrative Patient is here for 2g IV magnesium as scheduled. Mg level 1.7. PIV initiated on third attempt, blood return noted, flushes with ease. NS started at KVO. Magnesium infused over 2 hours. Line flushed. Pt tolerated well. PIV dc'd, pressure dressing applied. Pt dc'd in stable ambulatory condition with spouse. documented in this encounter [facility] 12-26-2023 History of Presen t illness Narrative Pt here for 2g IV magnesium infusion as scheduled. Mg level 1.6. Tolerating infusions well. PIV initiated to RFA. Brisk blood return noted, flushes with ease. NS started at KVO. Magnesium infused over 2 hours. Pt tolerated well. Line flushed. PIV dc'd. Pressure dressing applied. Pt v/u of future appointments. documented in this encounter [facility] 12-19-2023 History of Presen t illness Narrative Pt here for 4g IV magnesium infusion as scheduled. Mg level 1.5. Tolerating infusions well. PIV initiated to LFA. Brisk blood return noted, flushes with ease. NS started at KVO. Magnesium infused over 4 hours. Pt tolerated well. Line flushed. PIV dc'd. Pressure dressing applied. Pt v/u of future appointments. documented in this encounter [facility] 12-12-2023 History of Presen t illness Narrative Patient is here for 2g IV magnesium as scheduled. Mg level 1.7. PIV initiated blood return noted, flushes with ease. NS started at KVO. Magnesium infused over 2 hours. Line flushed. Pt tolerated well. PIV dc'd, pressure dressing applied. Pt dc'd in stable ambulatory condition with spouse. documented in this encounter [facility] 12-04-2023 Miscellaneous Notes Formattin g of this note might be different from the original. Patient called and these are both covered by insurance and she would like these sent in instead of what the alternative was documented in this encounter [facility] 12-04-2023 Telephone encount er Note Patient called and these are both covered by insurance and she would like these sent in instead of what the alternative was [facility] 11-28-2023 History of Presen t illness Narrative Patient here for 2g IV magnesium as scheduled. Mg level 1.8. PIV initiated to LFA Brisk blood return noted, flushes with ease. NS started at KVO. Magnesium infused over 2 hours. Line flushed. Pt tolerated well. PIV dc'd, pressure dressing applied. Pt dc'd in stable ambulatory condition with spouse. documented in this encounter [facility] 11-21-2023 History of Presen t illness [...] Treatment calendar provided. documented in this encounter [facility] 11-19-2023 Note Continue statin [facility] 11-19-2023 Note Hypertension is elev ated in office today was 192/86 and repeat b/p improved 158/80 Typically b/p is 122-150/60-80 at home and at other physician offices. Continue all meds ramipril, coreg [facility] 11-19-2023 Note Coronary artery dise ase is stable Continue GDMT- ASA, lipitor, coreg continue risk factor modifications- heart healthy diet, regular exercise as tolerated and continue all medications. [facility] 11-19-2023 Note Patient here for 1 y ear follow up CAD, hypertension, and venous insufficiency. Had labs a week or so ago for food and drug research scientist and says she's in the process of [...] All other systems reviewed and are negative. [facility] 11-19-2023 Note [facility] CARDIOLOGY PROGR ESS NOTE HPI: Adore Dugan is a 83 y.o. female here for [...] labs a week or so ago for food and drug research scientist and says she's in the process of [...] 2.05, BUN 64, (more content not included)... [facility] 08-23-2023 Evaluation note Encounter Date Diagnosis [...] slow down the progression of her CKD. 12 Aug, 2023 Type 2 diabetes mellitus with diabetic chronic [...] magnesium diet and provide information about it. [facility] Other 03-16-2023 NoteCONSULTATION CONSULTATION DATE: 01/25/2023 HISTORY: [...] the patient and to talk with Dr. Munoz, their food and drug research scientist, to confirm that this was acceptable, considering her stage 3 kidney disease. Other than that, we will see her in three months' time at the clinic, unless otherwise indicated. Patient and agree with this plan.[facility] 01-25-2023 Evaluation note* Encounter Date Diagnosis Assessment [...] magnesium diet and provide information about it. [facility] Chief Complaint: Patient being seen via telephone call for 6 mo follow up hypertension, CAD, and CKD. She denies chest pain and increased SOB with exertion. C/o increased LE edema but denies weight gain. Says her food and drug research scientist Dr. Munoz advised her to call him for weight gain of over 2# in a day. She hasn't had to call him recently. She had CMP,LIPID last month. She is currently taking lasix 80mg bid, and has noticed decreased urinary output. HPI: Adore Dugan is a 82 y.o. female PMHx: CAD [...] enzyme inhibitor/receptor micki. 4. Follow up with [facility] Cardiology in the next 2 to 3 [...] creatinine and electrolytes; she follows with her food and drug research scientist Leg swelling is likely related to venous [...] was initiated by the patient and conducted [id number] with use of audio-only real time telephone communication between patient and provider for a virtual visit. Verbal consent to provide and bill for this service was obtained on 12/06/2022. No signature was obtained due to the COVID-19 pandemic. Moe Parham MD, MPH, FACC, [facility], [facility] Interventional Cardiology Pager Email: [email or web address] NoteCONSULTATION CONSULTATION DATE: 10/26/2022 HISTORY OF PRESENT ILLNESS: This is a very pleasant, 82-year-old female who presents with her for a three month follow up. Today, she reports 0/10 pain and is overall doing well. At her last appointment on 08/02/2022, we had switched her medications from [place] to tramadol extended release 100 mg per day, which she feels is helping very much. It is lasting for her better than the [place]. She is also on Lyrica 75 mg [...] indicated, and patient agrees with this plan.[id number] NoteCONSULTATION CONSULTATION DATE: 08/02/2022 HISTORY OF PRESENT ILLNESS: This is a pleasant, 81-year-old female, accompanied by her , returning to the clinic for a three month follow up for chronic lower back pain. She was last seen on 04/25/[address] Stern which, at that time, her [place] was decreased to 5/325 daily p.r.n., which [...] increased to 100 mg extended release daily. [place] will be discontinued. Education was given regarding use of the menthol heat rub with Voltaren gel and heat application to her back. Vitamin and nutrition importance was discussed. Patient will be seen back in the clinic in three months' time, unless otherwise indicated, and patient agrees to this.[id number] Evaluation note* Encounter Date Diagnosis Assessment Notes [...] any recent gout flare. She takes allopurinol. [facility] Other 06-22-2022 Evaluation note* Encounter Date Diagnosis Assessment Notes Treatment Notes Treatment Clinical Notes Apr, Hypertensive chronic kidney disease with stage 1 through stage 4 chronic kidney disease, or unspecified chronic kidney disease (ICD-10 - I12.9) [facility] Other 06-14-2022 NoteCONSULTATION CONSULTATION DATE: 04/25/2022 CHIEF [...] 4/10. She is managing the pain with [place] 5/325 one table daily and tramadol 50 [...] the patient's pain medication which would be [place] 5/325 one tablet daily and tramadol 50 [...] she need us. CC: Fernie Hackett D.O. [facility] Signed and Approved by: DR LUISA STERN . 05/02/2022 08:52:00[facility]05-26-2022 Evaluation note* Encounter Date Diagnosis [...] any recent gout flare. She takes allopurinol. [facility] Other 05-19-2022 NoteCONSULTATION CONSULTATION DATE: 03/30/2022 This [...] She was given a 14-day prescription of [place] 5/325 b.i.d. to help with the acuity of her post-procedure pain. Today she reports the [place] is gone and she is back on [...] and rather we will maintain her on [place] 5/325 b.i.d. which proved to be the [...] and agree and would like to proceed. [facility] Signed and Approved by: JONNY CAMPUZANO . 04/03/2022 15:07:00[facility]02-15-2022 Evaluation note* Encounter Date Diagnosis [...] any recent gout flare. She takes allopurinol. [employer] Other Evaluation noteNo InformationNort [employer] Other Evaluation note* Diagnosis Hypomagnesemia- Primary Disorders of magnesium metabolism documented in this encounter [facility]* Diagnosis Hypomagnesemia- Primary Disorders of magnesium metabolism documented in this encounter [facility]* Diagnosis Mixed hyperlipidemia- Primary Type 2 diabetes mellitus with stage 3b chronic kidney disease, with long-term current use of insulin (CMS-HCC) Essential hypertension Unspecified essential hypertension documented [facility] noteNo assessment information available [facility] Work Phone: Evaluation note* Diagnosis Hypomagnesemia- Primary Disorders of magnesium metabolism documented in this encounter [facility]* Diagnosis Hypomagnesemia- Primary Disorders of magnesium metabolism [facility]* Diagnosis Hypomagnesemia- Primary Disorders of magnesium metabolism [facility]* Diagnosis Hypomagnesemia- Primary Disorders of magnesium metabolism [facility]* Diagnosis Medicare annual wellness visit, subsequent- Primary Screening for depression [facility] Diagnosis 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 ([facility])- Primary [facility]* Diagnosis Hypomagnesemia- Primary Disorders of magnesium metabolism [facility] - Reported* Type Description Date [...] IN LOWER BACK Hospitalization History see above [facility] Other [facility] general Narrative - Reported* Type Description Date [...] HEART CATH 03/30/2021 Hospitalization History see above [facility] Other [facility] general Narrative - Reported* Type Description Date [...] IN LOWER BACK Hospitalization History see above [facility] Other InstructionsNot on filedocumented in this encounter [facility] filedocumented in this [facility]ructionsNot on filedocumented in this encounter [facility]ructionsNot on filedocumented in this encounter [facility]ructionsNot on filedocumented in this encounter [facility] SystemInstructionsNot on filedocumented in this encounter [facility] Summary Purpose Family History No Family History [...] and content) DATE CREATED AUTHOR 04/06/2021 [facility] DATE CREATED AUTHOR AUTHOR'S ORGANIZ ATION 05/12/2022 [facility] DATE CREATED AUTHOR AUTHOR'S ORGANIZ ATION 03/15/2023 [facility] DATE CREATED AUTHOR AUTHOR'S ORGANIZ ATION 11/19/2023 [facility] DATE CREATED AUTHOR AUTHOR'S ORGANIZ ATION 11/23/2023 [facility] DATE CREATED AUTHOR AUTHOR'S ORGANIZ ATION 11/27/2023 [facility] DATE CREATED AUTHOR AUTHOR'S ORGANIZ ATION 11/27/2023 [facility] DATE CREATED AUTHOR AUTHOR'S ORGANIZ ATION 01/28/2024 [facility] DATE CREATED AUTHOR AUTHOR'S ORGANIZ ATION 01/31/2024 [facility] REASON FOR VISIT (unrecogniz ed section and content) Reason Comments Med Refill Reason Comments Outpatient Infusion magnesium Reason Comments Outpatient Infusion IV MG Reason Onset Date Comments Med Refill 12/04/2023 Reason Onset Date Comments Med Refill 12/11/2023 Reason Comments Outpatient Infusion Magnesium Reason Comments Outpatient Infusion Magnesium Reason Comments medicare annual wellness Reason Comments Outpatient Infusion IV magnesium Reason Comments Outpatient Infusion IV Mg Care Teams (unrecognized sec tion and content) Neurology Nurse Relationship Specialty Start Date End Date Fernie Hackett DO [address] [place] [address] PCP - General Family Medicine 05/09/17 Neurology Nurse Relationship Specialty Start Date End Date Fernie Hackett DO [address], [place] [address] PCP - General Family Medicine 05/09/17 Neurology Nurse Relationship Specialty Start Date End Date Fernie Hackett DO [address], [place] [address] PCP - General Family Medicine 05/09/17 Neurology Nurse Relationship Specialty Start Date End Date Fernie Hackett DO [address] [place] [address] PCP - General Family Medicine 05/09/17 Neurology Nurse Relationship Specialty Start Date End Date Fernie Hackett DO [address] [place] [address] PCP - General Family Medicine 05/09/17 Team Status: Active Member Role Status Dates Fernie Hackett DO Primary Care Provider Active Team Status: Inactive Member Role Status Dates Fernie Hackett DO Primary Care Provider Active Gia Munoz MD Attending Provider Active Neurology Nurse Relationship Specialty Start Date End Date Fernie Hackett DO [address] [place] [address] PCP - General Family Medicine 05/09/17 Neurology Nurse Relationship Specialty Start Date End Date Fernie Hackett DO [address] [place] [address] PCP - General Family Medicine 05/09/17 Neurology Nurse Relationship Specialty Start Date End Date Fernie Hackett DO [address] [place] [address] PCP - General Family Medicine 05/09/17 Neurology Nurse Relationship Specialty Start Date End Date Fernie Hackett DO [address] [place] [address] PCP - General Family Medicine 05/09/17 Neurology Nurse Relationship Specialty Start Date End Date Fernie Hackett DO [address] [place] [address] PCP - General Family Medicine 05/09/17 Neurology Nurse Relationship Specialty Start Date End Date Fernie Hackett DO [address] [place] [address] PCP - General Family Medicine 05/09/17 Neurology Nurse Relationship Specialty Start Date End Date Fernie Hackett DO [address] [place] [address] PCP - General Family Medicine 6/28/17 Goals (unrecognized section and content) Goals may [...] BE BASED ON THE PRIMARY CLINICAL RECORDS. [facility]. provides no warranty or guarantee of the accuracy or completeness of information in this document.
--- NOTE | 2024-02-04 13:37 | P.CN_ITS ---
Consult Note: HPI Data of Consult Patient: known to practice within the last 3 years Consult date: 02/04/24 Requesting Physician: Christian Curtis MD Primary Care Provider: SHANDA CLARK Consult Narrative Reason for consult: low back pain Narrative: 83yof who presents for assessment. significant relief of radiating leg pain after lumbar epidural steroid injection. continues to have axial low back pain. imaging reviewed, significant for severe facet arthropathy in lower lumbar spine. continues in >6 weeks of provider directed home exercise program, with limited relief. continues to use tramadol and lyrica, with some benefit. denies adverse med side effects. cc:: CC: Christian Curtis MD Review of Systems ROS Status of ROS 10 or more systems reviewed and unremark able except as noted in history and below [facility] Medical History (Updated 01/15/24 @ 10:50 by Mica Estrada RN) Osteoarthritis ?M19.90 - Unspecified osteoarthritis, unspecified site (ICD-10) Anemia ?D64.9 - Anemia, unspecified (ICD-10) Carpal tunnel syndrome ?G56.00 - Carpal tunnel syndrome, unspecified upper limb (ICD-10) Acid reflux ?K21.9 - Gastro-esophageal reflux disease without esophagitis (ICD-10) Diabetes ?E11.9 - Type 2 diabetes mellitus without complications (ICD-10) Cirrhosis of liver ?K74.60 - Unspecified cirrhosis of liver (ICD-10) Kidney stone ?N20.0 - Calculus of kidney (ICD-10) Kidney failure ?N19 - Unspecified kidney failure (ICD-10) COPD (chronic obstructive pulmonary disease) ?J44.9 - Chronic obstructive pulmonary disease, unspecified (ICD-10) Asthma ?J45.909 - Unspecified asthma, uncomplicated (ICD-10) High cholesterol ?E78.00 - Pure hypercholesterolemia, unspecified (ICD-10) HTN (hypertension) ?I10 - Essential (primary) hypertension (ICD-10) Surgical History History of appendectomy ?Z90.49 - Acquired absence of other specified parts of digestive tract (ICD- 10) History of hysterectomy ?Z90.710 - Acquired absence of both cervix and uterus (ICD-10) History of neck surgery ?Z98.890 - Other specified postprocedural states (ICD-10) Hx of cholecystectomy ?Z90.49 - Acquired absence of other specified parts of digestive tract (ICD- 10) History of lumbar laminectomy ?Z98.890 - Other specified postprocedural states (ICD-10) History of cardiac cath ?Z98.890 - Other specified postprocedural states (ICD-10) Meds Home Medications and Allergies Home Medications ?Medication ?Instructions ?Recorded ?Confirmed ?Type GLUCOSAMINE DAILY 04/26/23 History PRO AIR 04/26/23 History RAMIPRIDE 10 mg DAILY 04/26/23 History allopurinol 200 mg tablet 200 mg PO DAILY 04/26/23 01/21/24 History aspirin 81 mg tablet,delayed 81 mg PO DAILY 04/26/23 01/21/24 History release atorvastatin 80 mg tablet 80 mg PO DAILY 04/26/23 01/21/24 History baclofen 10 mg tablet 10 mg PO DAILY 04/26/23 01/21/24 History fluticasone furoate 100 1 inh inhalation DAILY 04/26/23 01/21/24 History mcg-vilanterol 25 mcg/dose inhalation powder (Breo Ellipta) furosemide 80 mg tablet 80 mg PO BID 04/26/23 01/21/24 History insulin glargine 100 unit/mL 50 unit subcut DAILY 04/26/23 01/21/24 History subcutaneous solution (Lantus U-100 Insulin) insulin lispro 100 unit/mL 6 unit subcut TID 04/26/23 01/21/24 History subcutaneous pen metoclopramide HCl 10 mg tablet 10 mg PO BID 04/26/23 01/21/24 History omeprazole 20 mg tablet,delayed 20 mg PO BID 04/26/23 01/21/24 History release theophylline 400 mg 400 mg PO DAILY 04/26/23 01/21/24 History tablet,extended release 24 hr tramadol 100 mg capsule 100 mg PO DAILY PRN pain #30 caps 11/15/23 01/21/24 Rx 24h,extended release(25-75) pregabalin 75 mg capsule (Lyrica) 75 mg PO DAILY #30 caps 12/19/23 01/21/24 Rx Allergies Allergy/AdvReac Type Severity Reaction Status Date / Time adhesive tape Allergy Unknown Verified 01/21/24 10:57 povidone-iodine Allergy Unknown Verified 01/21/24 10:57 [From Betadine] red dye Allergy Unknown Verified 01/21/24 10:57 Sulfa (Sulfonamide Allergy Unknown Verified 01/21/24 10:57 Antibiotics) tetracycline Allergy Unknown Verified 01/21/24 10:57 Exam Narrative Exam Narrative: Psych-alert and oriented x 3. Attentive and appropriate, constitutionally normal, displays normal mood and affect per situation.? There are no obvious deficits in memory, reasoning, or intellect.? Skin-no obvious rashes, bruising, erythema noted to the patient's area of pain. Extremities- extremities are warm with minimal edema and palpable pulses. Lumbar-no significant tenderness to palpation noted in the lumbar spine and paraspinal musculature.? Pain is elicited with extension, and lateral rotation of the lumbar spine. Range of motion is slightly diminished with these motions due to pain. Facet loading maneuvers are positive bilaterally and do appear to be concordant with the patient's normal complaints of pain.? Coordination remains intact.? Gait remains non-antalgic. Assessment and Plan Assessment and Plan (1) Lumbar radiculopathy, chronic: (2) Lumbar spondylosis: Plan 83yof who presents for assessment. significant relief of radiating pain after lumbar tfesi. imaging reviewed, as noted. given symptoms and imaging, discussed that she would be appropriate candidate for bilateral l4-5, l5-s1 medial branch block under fluoroscopic guidance with intention of proceeding to radiofrequency ablation. she will call if she wants to move forward. meds reviewed, no changes at this time. follow up in 3 months.
== END 2024-02-04 13:00 | disposition home or self-care (01) ==
LOC: PM 12:59
PROVIDERS: PCP Family Medicine; Visit Provider Anesthesiology
DX: M54.16 Radiculopathy, lumbar region (principal); M47.816 Spondylosis without myelopathy or radiculopathy, lumbar region
CPT/HCPCS: G0463

== ENCOUNTER 2024-02-15 20:04 | Emergency (ER) | payer MEDICARE, SELFPAY ==
[2024-02-15 20:14] VITALS: BP 168/82; PULSE 90; TEMP 37.1; O2SAT 95; BMI 43.3
--- NOTE | 2024-02-15 20:24 | PC.NURSE ---
no goose egg or hematoma observed, skin intact of area injured.
--- NOTE | 2024-02-15 20:40 | CT_ITS ---
The [address] [address] Patient Name: DAVID DUGAN MRN: [id number] date: 1940 Sex: F Assigned Patient Location: ER Current Patient Location: ER Accession/Order Number: [id number] Exam Date: 02/15/2024 20:45 Report Date: 02/15/2024 21:14 At the request of: JC BEDOLLA Procedure: CT head/brain wo con EXAM: CT head/brain wo con, CT cervical spine wo con HISTORY: Fall with posterior head and neck pain. COMPARISON: CT cervical spine from 01/25/2017. TECHNIQUE: Axial images of the brain were obtained from the skull base to the vertex without contrast enhancement. Sagittal and coronal reformations were provided. Axial images were also obtained to the cervical spine without contrast enhancement. Sagittal and coronal reformations were provided. Dose reduction techniques were achieved by using automated exposure control and/or adjustment of mA and/or kV according to patient size and/or use of iterative reconstruction technique. COMMENT: The lack of intradural contrast and streak artifact from bone about the vertebral column limit evaluation for disc protrusion, bulge and the spinal canal in general. FINDINGS: CT HEAD: No acute intracranial hemorrhage, extra-axial fluid collection, midline shift or mass effect is seen. No space-occupying lesion is demonstrated. There is prominence of the sulci and ventricles. No significant change in ventricular size or configuration in the interval. Ill-defined areas of relatively diminished attenuation are seen within the hemispheric white matter. While nonspecific, they likely reflect chronic microvascular ischemic change. No CT evidence of an acute ischemic event. There are vascular calcifications along the course of the carotid siphon. Bone windows reveal no evidence of an acute calvarial fracture. There is a large mucosal retention cyst within the right maxillary antrum. The visualized paranasal sinuses and mastoids are otherwise well-aerated. CT CERVICAL SPINE: The bones are osteopenic. There is loss of the normal lordosis and straightening of the cervical vertebral column. Postoperative change involving the cervical vertebral column is noted. Laminectomies have been performed at C4, C5 and C6. No CT evidence of an acute fracture or significant loss of vertebral body height. There is a mild grade 1 anterolisthesis of C3 C3 on C4 due to facet degenerative change. Multilevel loss of disc space and endplate osteophyte formation are noted. No malalignment at the craniocervical junction. While assessment is again suboptimal on this noncontrast CT, there appear to be areas of underlying canal narrowing due to disc bulging and endplate osteophyte formation. Uncovertebral spurring and hypertrophic change of the facet joints also results in areas of foraminal stenosis. CT/CT head/brain wo con IMPRESSION: 1. No CT evidence of an acute intracranial hemorrhage or acute calvarial fracture. 2. There is prominence of the sulci and ventricles. The degree of ventricular prominence is greater than that of the sulci. While possibly due to central volume loss, normal pressure hydrocephalus could appear similar in the appropriate clinical setting. 3. Probable chronic microvascular ischemic change. 4. Postoperative and degenerative change of the cervical vertebral column without CT evidence of an acute fracture. 5. If there is further clinical indication to evaluate the spinal canal, cord or for ligamentous injury consider MRI as it would be more sensitive. Electronically authenticated by: LEOPOLDO HOLLOWAY Date: 02/15/2024 21:14
--- NOTE | 2024-02-15 20:46 | CT_ITS ---
The [address] [address] Patient Name: DAVID DUGAN MRN: [id number] date: 1940 Sex: F Assigned Patient Location: ER Current Patient Location: ER Accession/Order Number: [id number] Exam Date: 02/15/2024 20:45 Report Date: 02/15/2024 21:14 At the request of: JC BEDOLLA Procedure: CT cervical spine wo con EXAM: CT head/brain wo con, CT cervical spine wo con HISTORY: Fall with posterior head and neck pain. COMPARISON: CT cervical spine from 01/25/2017. TECHNIQUE: Axial images of the brain were obtained from the skull base to the vertex without contrast enhancement. Sagittal and coronal reformations were provided. Axial images were also obtained to the cervical spine without contrast enhancement. Sagittal and coronal reformations were provided. Dose reduction techniques were achieved by using automated exposure control and/or adjustment of mA and/or kV according to patient size and/or use of iterative reconstruction technique. COMMENT: The lack of intradural contrast and streak artifact from bone about the vertebral column limit evaluation for disc protrusion, bulge and the spinal canal in general. FINDINGS: CT HEAD: No acute intracranial hemorrhage, extra-axial fluid collection, midline shift or mass effect is seen. No space-occupying lesion is demonstrated. There is prominence of the sulci and ventricles. No significant change in ventricular size or configuration in the interval. Ill-defined areas of relatively diminished attenuation are seen within the hemispheric white matter. While nonspecific, they likely reflect chronic microvascular ischemic change. No CT evidence of an acute ischemic event. There are vascular calcifications along the course of the carotid siphon. Bone windows reveal no evidence of an acute calvarial fracture. There is a large mucosal retention cyst within the right maxillary antrum. The visualized paranasal sinuses and mastoids are otherwise well-aerated. CT CERVICAL SPINE: The bones are osteopenic. There is loss of the normal lordosis and straightening of the cervical vertebral column. Postoperative change involving the cervical vertebral column is noted. Laminectomies have been performed at C4, C5 and C6. No CT evidence of an acute fracture or significant loss of vertebral body height. There is a mild grade 1 anterolisthesis of C3 C3 on C4 due to facet degenerative change. Multilevel loss of disc space and endplate osteophyte formation are noted. No malalignment at the craniocervical junction. While assessment is again suboptimal on this noncontrast CT, there appear to be areas of underlying canal narrowing due to disc bulging and endplate osteophyte formation. Uncovertebral spurring and hypertrophic change of the facet joints also results in areas of foraminal stenosis. CT/CT cervical spine wo con IMPRESSION: 1. No CT evidence of an acute intracranial hemorrhage or acute calvarial fracture. 2. There is prominence of the sulci and ventricles. The degree of ventricular prominence is greater than that of the sulci. While possibly due to central volume loss, normal pressure hydrocephalus could appear similar in the appropriate clinical setting. 3. Probable chronic microvascular ischemic change. 4. Postoperative and degenerative change of the cervical vertebral column without CT evidence of an acute fracture. 5. If there is further clinical indication to evaluate the spinal canal, cord or for ligamentous injury consider MRI as it would be more sensitive. Electronically authenticated by: LEOPOLDO HOLLOWAY Date: 02/15/2024 21:14
--- NOTE | 2024-02-15 20:46 | ED.FALL1 ---
HPI HPI - Fall General Chief Complaint: Fall Stated Complaint: fall Time Seen by Provider: 02/15/24 20:10 Source: patient Mode of arrival: walk-in Limitations: no limitations History of Present Illness HPI Narrative: Patient was trying to pull an item out of the refrigerator at home and as the item came loose, the patient fell back and landed on the carpeted floor, striking the back of the head on the floor. She did not lose consciousness. She initially had pain to the back of the head. This occurred around 4 or 430pm. As time progressed, the pain radiated into the neck and across the upper posterior shoulders. No seizure activity or vomiting. no UE or LE paralysis, weakness or sensory changes. She took 2 ES tylenol after the fall. She was able to ambulate normally. Related Data Home Medications ?Medication ?Instructions ?Recorded ?Confirmed GLUCOSAMINE DAILY 04/26/23 PRO AIR 04/26/23 RAMIPRIDE 10 mg DAILY 04/26/23 allopurinol 200 mg tablet 200 mg PO DAILY 04/26/23 02/15/24 aspirin 81 mg tablet,delayed 81 mg PO DAILY 04/26/23 02/15/24 release atorvastatin 80 mg tablet 80 mg PO DAILY 04/26/23 02/15/24 baclofen 10 mg tablet 10 mg PO DAILY 04/26/23 02/15/24 fluticasone furoate 100 1 inh inhalation DAILY 04/26/23 02/15/24 mcg-vilanterol 25 mcg/dose inhalation powder (Breo Ellipta) furosemide 80 mg tablet 80 mg PO BID 04/26/23 02/15/24 insulin glargine 100 unit/mL 46 unit subcut DAILY 04/26/23 02/15/24 subcutaneous solution (Lantus U-100 Insulin) insulin lispro 100 unit/mL 6 unit subcut BID 04/26/23 02/15/24 subcutaneous pen metoclopramide HCl 10 mg tablet 10 mg PO DAILY 04/26/23 02/15/24 omeprazole 20 mg tablet,delayed 20 mg PO BID 04/26/23 02/15/24 release theophylline 400 mg 400 mg PO DAILY 04/26/23 02/15/24 tablet,extended release 24 hr magnesium infusion 2,000 mg IV drip .weekly 02/15/24 02/15/24 tramadol 100 mg capsule 100 mg PO DAILY 02/15/24 02/15/24 24h,extended release(25-75) Previous Rx's ?Medication ?Instructions ?Recorded pregabalin 75 mg capsule (Lyrica) 75 mg PO DAILY #30 caps 12/19/23 Allergies Allergy/AdvReac Type Severity Reaction Status Date / Time adhesive tape Allergy Unknown Verified 02/15/24 20:22 povidone-iodine Allergy Unknown Verified 02/15/24 20:22 [From Betadine] red dye Allergy Unknown Verified 02/15/24 20:22 Sulfa (Sulfonamide Allergy Unknown Verified 02/15/24 20:22 Antibiotics) tetracycline Allergy Unknown Verified 02/15/24 20:22 Opioid HPI Opioid Management Most Recent Pain and Opioid Data: Last Pain Scale 7 01/21/24 10:45 PFSH PFSH Medical History (Updated 02/15/24 @ 20:52 by Marcelino Alva) Osteoarthritis ?M19.90 - Unspecified osteoarthritis, unspecified site (ICD-10) Anemia ?D64.9 - Anemia, unspecified (ICD-10) Carpal tunnel syndrome ?G56.00 - Carpal tunnel syndrome, unspecified upper limb (ICD-10) Acid reflux ?K21.9 - Gastro-esophageal reflux disease without esophagitis (ICD-10) Diabetes ?E11.9 - Type 2 diabetes mellitus without complications (ICD-10) Cirrhosis of liver ?K74.60 - Unspecified cirrhosis of liver (ICD-10) Kidney stone ?N20.0 - Calculus of kidney (ICD-10) Kidney failure ?N19 - Unspecified kidney failure (ICD-10) COPD (chronic obstructive pulmonary disease) ?J44.9 - Chronic obstructive pulmonary disease, unspecified (ICD-10) Asthma ?J45.909 - Unspecified asthma, uncomplicated (ICD-10) High cholesterol ?E78.00 - Pure hypercholesterolemia, unspecified (ICD-10) HTN (hypertension) ?I10 - Essential (primary) hypertension (ICD-10) Surgical History History of appendectomy ?Z90.49 - Acquired absence of other specified parts of digestive tract (ICD-10) History of hysterectomy ?Z90.710 - Acquired absence of both cervix and uterus (ICD-10) History of neck surgery ?Z98.890 - Other specified postprocedural states (ICD-10) Hx of cholecystectomy ?Z90.49 - Acquired absence of other specified parts of digestive tract (ICD-10) History of lumbar laminectomy ?Z98.890 - Other specified postprocedural states (ICD-10) History of cardiac cath ?Z98.890 - Other specified postprocedural states (ICD-10) Exam Narrative Exam Narrative: Nurses note and vital signs reviewed and patient is not hypoxic. Afebrile General: The patient appears well and in no apparent distress. Patient is resting comfortably on cart. GCS = 15. Skin: Warm, dry, no pallor noted. Head: Normocephalic, atraumatic -no area of swelling, ecchymosis, asymmetry, bony tenderness or palpable fracture. She is nontender to palpation along the occiput Neck: Supple, trachea mid-line, no lymphadenopathy. Midline cervical spinal tenderness. She has an old scar that is well healed and without erythema or dehiscence. Eyes: PERRLA, EOMI ENT: TM's clear, no hemotympanum detected, no blood in posterior oropharynx or facial injury Cardiovascular: Regular Rate and Rhythm Respiratory: Patient is in no distress, no accessory muscle use, lungs are clear to auscultation, no wheezing, rales or rhonchi Chest Wall: no tenderness, no flail chest, contusion, abrasion, or signs of trauma. Back: Back has no evidence of trauma, including contusion, abrasion, swelling or ecchymosis. The patient had no evidence of step-offs or crepitus noted. No tenderness to palpation. Negative straight leg raise bilaterally. Musculoskeletal: no sign of long bone fracture. Pulses at femoral, DP, PT, and popiteal were 2+ bilaterally. Moves all four extremities in all modalities with 5/5 strength. Neurological: A&O x4, normal equal test hole driller strength, normal finger to nose, normal speech, normal coordination, normal motor, normal sensory. Psychiatric: Cooperative Constitutional Vital Signs, click to edit/add: Last Vital Signs Temp 98.8 F 02/15/24 20:14 Pulse 90 02/15/24 20:14 Resp 18 02/15/24 20:14 BP 168/82 H 02/15/24 20:14 Pulse Ox 95 02/15/24 20:14 O2 Del Method Room Air 02/15/24 20:14 Course Vital Signs Vital signs: Vital Signs Temperature 98.8 F 02/15/24 20:14 Pulse Rate 90 02/15/24 20:14 Respiratory Rate 18 02/15/24 20:14 Blood Pressure 168/82 H 02/15/24 20:14 Pulse Oximetry 95 02/15/24 20:14 Oxygen Delivery Method Room Air 02/15/24 20:14 Temperature 98.8 F 02/15/24 20:14 Pulse Rate 90 02/15/24 20:14 Respiratory Rate 18 02/15/24 20:14 Blood Pressure 168/82 H 02/15/24 20:14 Pulse Oximetry 95 02/15/24 20:14 Oxygen Delivery Method Room Air 02/15/24 20:14 MDM - Fall MDM Narrative Medical decision making narrative: Patient sent for noncontrast CT scan of the brain and cervical spine. Please see the radiologist reports -no acute worrisome findings on CT head and CT cervical spine. She does have some chronic changes. Patient family were informed of results and she was given reassurance. She does have concussive symptoms and we discussed what that means in the plan and timeline for recovery. She was encouraged to take Tylenol as needed for any continued headache or pain and to follow-up with her primary care provider as needed. She can always return to the emergency department for any new or worsening symptoms. Imaging Data ct head & ct cervical spine: Radiologist's impression: ITS Impressions Head CT 02/15/24 20:40 IMPRESSION: 1. No CT evidence of an acute intracranial hemorrhage or acute calvarial fracture. 2. There is prominence of the sulci and ventricles. The degree of ventricular prominence is greater than that of the sulci. While possibly due to central volume loss, normal pressure hydrocephalus could appear similar in the appropriate clinical setting. 3. Probable chronic microvascular ischemic change. 4. Postoperative and degenerative change of the cervical vertebral column without CT evidence of an acute fracture. 5. If there is further clinical indication to evaluate the spinal canal, cord or for ligamentous injury consider MRI as it would be more sensitive. Electronically authenticated by: LEOPOLDO HOLLOWAY Date: 02/15/2024 21:[address] 02/15/24 20:46 IMPRESSION: 1. No CT evidence of an acute intracranial hemorrhage or acute calvarial fracture. 2. There is prominence of the sulci and ventricles. The degree of ventricular prominence is greater than that of the sulci. While possibly due to central volume loss, normal pressure hydrocephalus could appear similar in the appropriate clinical setting. 3. Probable chronic microvascular ischemic change. 4. Postoperative and degenerative change of the cervical vertebral column without CT evidence of an acute fracture. 5. If there is further clinical indication to evaluate the spinal canal, cord or for ligamentous injury consider MRI as it would be more sensitive. Electronically authenticated by: LEOPOLDO HOLLOWAY Date: 02/15/2024 21:14 Discharge Plan Discharge Stand Alone Forms: Portal Instructions Chief Complaint: Fall Clinical Impression: Acute neck pain, Concussion, Head injury due to trauma Patient Disposition: Home, Self-Care Time of Disposition Decision: 21:30 Prescriptions / Home Meds: No Action allopurinol 200 mg tablet 200 mg PO DAILY aspirin 81 mg tablet,delayed release (DR/EC) 81 mg PO DAILY atorvastatin 80 mg tablet 80 mg PO DAILY baclofen 10 mg tablet 10 mg PO DAILY fluticasone furoate-vilanterol [Breo Ellipta] 100-25 mcg/dose blister with device 1 inh inhalation DAILY furosemide 80 mg tablet 80 mg PO BID GLUCOSAMINE DAILY insulin lispro 100 unit/mL insulin pen 6 unit subcut BID insulin glargine [Lantus U-100 Insulin] 100 unit/mL solution 46 unit subcut DAILY metoclopramide HCl 10 mg tablet 10 mg PO DAILY omeprazole 20 mg tablet,delayed release (DR/EC) 20 mg PO BID PRO AIR RAMIPRIDE 10 mg DAILY theophylline 400 mg tablet extended release 24 hr 400 mg PO DAILY tramadol 100 mg capsule,ER biphase 24 hr 25-75 100 mg PO DAILY Rx Instructions: DO NOT FILL TILL 11/20/22 MUST LAST 30 DAYS PATIENT HAD TRAMADOL 50MG TABS TURNED IN AND DESTROYED BY PAIN MANAGEMENT OFFFICE STAFF magnesium infusion 2,000 mg IV drip .weekly Rx Instructions: onTues. pregabalin [Lyrica] 75 mg capsule 75 mg PO DAILY Qty: 30 2RF Print Language: Amharic Instructions: Concussion (ED), Head Injury (ED), Neck Pain (ED) Referrals: SHANDA CLARK [Primary Care Provider] - 1 week
== END 2024-02-15 21:43 | disposition home or self-care (01) ==
PROVIDERS: Emergency Provider Emergency Medicine; PCP Family Medicine
DX: S06.0X0A Concussion without loss of consciousness, initial encounter (principal); M54.2 Cervicalgia; S09.8XXA Other specified injuries of head, initial encounter; W18.30XA Fall on same level, unspecified, initial encounter; M19.90 Unspecified osteoarthritis, unspecified site; K21.9 Gastro-esophageal reflux disease without esophagitis; E11.9 Type 2 diabetes mellitus without complications; K74.60 Unspecified cirrhosis of liver; Z87.442 Personal history of urinary calculi; J44.9 Chronic obstructive pulmonary disease, unspecified; E78.00 Pure hypercholesterolemia, unspecified; I10 Essential (primary) hypertension; Z79.82 Long term (current) use of aspirin; Z79.4 Long term (current) use of insulin; Z79.899 Other long term (current) drug therapy; Z90.49 Acquired absence of other specified parts of digestive tract; Z90.710 Acquired absence of both cervix and uterus; Z98.890 Other specified postprocedural states
CPT/HCPCS: 70450; 72125; 99284

== ENCOUNTER 2024-04-30 14:03 | Outpatient (OUT) | payer MEDICARE, SELFPAY ==
--- NOTE | 2024-04-30 14:02 | PM.CN ---
Consult Note: HPI Data of Consult Patient: known to practice within the last 3 years Consult date: 02/04/24 Requesting Physician: Pao Good NP Primary Care Provider: SHANDA CLARK Consult Narrative Reason for consult: low back pain Narrative: Adore Wolff an 82 year old female presents for evaluation and management of chronic low back pain. Today pain 3/10, increasing to 8/10 with standing walking and all activity. Patient reports >50% improvement in lumbar radiculopathy and pain greater than 3 months from prior bilateral L4-5 TFESI. Hx of CKD, cannot take NSAIDs. Patient finds benefit from current medication regimen, denies side effects. Patient has been receiving magnesium infusions weekly and has noticed significant fatigue and decreased quality of life. cc:: CC: Pao Good NP Review of Systems ROS Status of ROS 10 or more systems reviewed and unremarkable except as noted in history and below Musculoskeletal Reports: back pain PFSH PFSH Medical History (Updated 04/30/24 @ 14:29 by Pao Good NP) Osteoarthritis ?M19.90 - Unspecified osteoarthritis, unspecified site (ICD-10) Anemia ?D64.9 - Anemia, unspecified (ICD-10) Carpal tunnel syndrome ?G56.00 - Carpal tunnel syndrome, unspecified upper limb (ICD-10) Acid reflux ?K21.9 - Gastro-esophageal reflux disease without esophagitis (ICD-10) Diabetes ?E11.9 - Type 2 diabetes mellitus without complications (ICD-10) Cirrhosis of liver ?K74.60 - Unspecified cirrhosis of liver (ICD-10) Kidney stone ?N20.0 - Calculus of kidney (ICD-10) Kidney failure ?N19 - Unspecified kidney failure (ICD-10) COPD (chronic obstructive pulmonary disease) ?J44.9 - Chronic obstructive pulmonary disease, unspecified (ICD-10) Asthma ?J45.909 - Unspecified asthma, uncomplicated (ICD-10) High cholesterol ?E78.00 - Pure hypercholesterolemia, unspecified (ICD-10) HTN (hypertension) ?I10 - Essential (primary) hypertension (ICD-10) Surgical History History of appendectomy ?Z90.49 - Acquired absence of other specified parts of digestive tract (ICD-10) History of hysterectomy ?Z90.710 - Acquired absence of both cervix and uterus (ICD-10) History of neck surgery ?Z98.890 - Other specified postprocedural states (ICD-10) Hx of cholecystectomy ?Z90.49 - Acquired absence of other specified parts of digestive tract (ICD-10) History of lumbar laminectomy ?Z98.890 - Other specified postprocedural states (ICD-10) History of cardiac cath ?Z98.890 - Other specified postprocedural states (ICD-10) Meds Home Medications and Allergies Home Medications ?Medication ?Instructions ?Recorded ?Confirmed ?Type GLUCOSAMINE DAILY 04/26/23 History PRO AIR 04/26/23 History RAMIPRIDE 10 mg DAILY 04/26/23 History allopurinol 200 mg tablet 200 mg PO DAILY 04/26/23 02/15/24 History aspirin 81 mg tablet,delayed 81 mg PO DAILY 04/26/23 02/15/24 History release atorvastatin 80 mg tablet 80 mg PO DAILY 04/26/23 02/15/24 History baclofen 10 mg tablet 10 mg PO DAILY 04/26/23 02/15/24 History fluticasone furoate 100 1 inh inhalation DAILY 04/26/23 02/15/24 History mcg-vilanterol 25 mcg/dose inhalation powder (Breo Ellipta) furosemide 80 mg tablet 80 mg PO BID 04/26/23 02/15/24 History insulin glargine 100 unit/mL 46 unit subcut DAILY 04/26/23 02/15/24 History subcutaneous solution (Lantus U-100 Insulin) insulin lispro 100 unit/mL 6 unit subcut BID 04/26/23 02/15/24 History subcutaneous pen metoclopramide HCl 10 mg tablet 10 mg PO DAILY 04/26/23 02/15/24 History omeprazole 20 mg tablet,delayed 20 mg PO BID 04/26/23 02/15/24 History release theophylline 400 mg 400 mg PO DAILY 04/26/23 02/15/24 History tablet,extended release 24 hr pregabalin 75 mg capsule (Lyrica) 75 mg PO DAILY #30 caps 12/19/23 02/15/24 Rx magnesium infusion 2,000 mg IV drip .weekly 02/15/24 02/15/24 History tramadol 100 mg capsule 100 mg PO DAILY 02/15/24 02/15/24 History 24h,extended release(25-75) tramadol 100 mg tablet,extended 100 mg PO DAILY PRN pain #30 tabs 03/19/24 Rx release 24hr mphase Allergies Allergy/AdvReac Type Severity Reaction Status Date / Time adhesive tape Allergy Unknown Verified 02/15/24 20:22 povidone-iodine Allergy Unknown Verified 02/15/24 20:22 [From Betadine] red dye Allergy Unknown Verified 02/15/24 20:22 Sulfa (Sulfonamide Allergy Unknown Verified 02/15/24 20:22 Antibiotics) tetracycline Allergy Unknown Verified 02/15/24 20:22 Exam Constitutional Documenting provider has reviewed patient's vital signs: yes Common normals: no apparent distress, oriented x3, healthy appearing, alert and well nourished General appearance: cooperative HENMT Common normals: normocephalic, hearing grossly normal bilaterally and moist oral mucous membranes Head and scalp: normocephalic Eye Common normals: PERRL Pupil: PERRL Neck & C-Spine Common normals: full ROM General: normal visual inspection Chest Common normals: inspection of chest normal Respiratory Common normals: normal respiratory effort, no retractions and no use of accessory muscles Back & Pelvis Lumbar spine/lower back: ROM limited, pain with ROM and straight leg raise positive right Other: decreased strength 4/5 in RLE diminished sensation right L4,5,S1 pattern Extremity Common normals: full ROM General: edema Right lower extremity: knee joint Left lower extremity: knee joint Other: enlarged diameter bilateral knees. Neuro Common normals: oriented x3, CN's II-XII intact bilaterally, moves all extremities, no focal motor deficits, no sensory deficits noted and deep tendon reflexes 2+ bilaterally Sensorium/orientation: alert Gait (neuro): antalgic and assistive device used walker Motor exam: strength 5/5 throughout and no movement abnormalities noted Psych Common normals: mental status grossly normal, thought process normal, cooperative, affect normal, speech normal and activity/motor behavior normal Speech: normal speech Thought process: normal thought process Results Additional Findings Additional findings: If on a controlled substance or opioids, I have checked an [place] report on this patient and there are no aberrancies noted in the prescribing history.??If on a controlled substance or opioid a drug screen was completed and reviewed within the last year, and if there has not been a drug screen completed we ordered one today to monitor higher risk, state monitored pain medication use. As part of providing excellent, safe, comprehensive care, the following was completed at our patient's visit: 1. A medication reconciliation and review to ensure accurate knowledge of current/active medications, including asking our patients to inform us about any [id number] medications or herbal remedies/nutritional supplements/alternative remedies. 2. A review to specifically ensure our patients have had annual screening for screening for depression, screening for tobacco use, and screening for unhealthy alcohol use. For concerning screenings had a discussion with the patient, provided patient education, and recommended follow-up with primary care provider when appropriate. If patient noted with a risk of falling, they received education on strength, gait, and balance training to prevent future risk of falling. Assessment and Plan Assessment and Plan (1) Lumbar stenosis with neurogenic claudication: (2) Lumbar radiculopathy, chronic: (3) Lumbar spondylosis: (4) Chronic prescription opiate use: Assessment and Plan: I feel these medications are improving the patient's quality of life and allow them to tolerate activities of daily living as well as participate in recreational activity.? The patient does not report intolerable side effects. The patient is NOT opioid naive and non-pharmacologic and non-opioid treatment has failed to significantly relieve the patient's pain and improve functionality. The patient has a diagnosis that is related to a somatic or visceral pain etiology. ? ?? I reviewed with the patient the potential risks and side effects with the use of? opioid medications including but not limited to respiratory depression,? sedation, and even . I verified the patient has access to naloxone should? these effects occur. I advised the patient to avoid the use of any other? sedation substances including alcohol, THC, and benzodiazepines while? taking opioid medications due to the risk of compounding side effects and? detrimental outcomes. I reviewed the [employer], pain treatment agreement, urine? drug screen, and opioid start talking forms. The patient was advised to let? their family know they had Naloxone in case they would need to administer? the medication.? ?? A drug screen was completed within the last year, and no aberrancies were noted regarding their use of controlled substances. The patient understands they are subject to the terms and conditions of the pain contract that they have signed. ? ?? I have checked an [place] report on this patient today and there are no aberrancies noted in the prescribing history.? Plan repeat bilateral L4-5 TFESI under fluoroscopy, pt to call to schedule update UDS today continue HEP as tolerated continue to utilize wheeled walker, 1 fall without injury in the last 6 months f/u 3 months, sooner if needed
== END 2024-04-30 14:04 | disposition home or self-care (01) ==
LOC: PM 14:03
PROVIDERS: PCP Family Medicine; Visit Provider Nurse Practitioner
DX: M48.062 Spinal stenosis, lumbar region with neurogenic claudication (principal); M54.16 Radiculopathy, lumbar region; M47.816 Spondylosis without myelopathy or radiculopathy, lumbar region; Z79.891 Long term (current) use of opiate analgesic
CPT/HCPCS: G0463

== ENCOUNTER 2024-07-28 12:47 | Outpatient (OUT) | payer MEDICARE, SELFPAY ==
--- NOTE | 2024-07-28 14:02 | P.CN_ITS ---
Consult Note: HPI Data of Consult Patient: known to practice within the last 3 years Consult date: 07/28/24 Requesting Physician: Christian Curtis MD Primary Care Provider: SHANDA CLARK Consult Narrative Reason for consult: bilateral knee pain Narrative: 83yof who presents for assessment. worsening bilateral knee pain. would like to repeat bilateral knee injections. continues to use tramadol and lyrica. denies adverse med side effects. cc:: CC: Christian Curtis MD Review of Systems ROS Status of ROS 10 or more systems reviewed and unremark able except as noted in history and below [facility] Medical History (Updated 07/28/24 @ 14:05 by Christian Curtis MD) Osteoarthritis ?M19.90 - Unspecified osteoarthritis, unspecified site (ICD-10) Anemia ?D64.9 - Anemia, unspecified (ICD-10) Carpal tunnel syndrome ?G56.00 - Carpal tunnel syndrome, unspecified upper limb (ICD-10) Acid reflux ?K21.9 - Gastro-esophageal reflux disease without esophagitis (ICD-10) Diabetes ?E11.9 - Type 2 diabetes mellitus without complications (ICD-10) Cirrhosis of liver ?K74.60 - Unspecified cirrhosis of liver (ICD-10) Kidney stone ?N20.0 - Calculus of kidney (ICD-10) Kidney failure ?N19 - Unspecified kidney failure (ICD-10) COPD (chronic obstructive pulmonary disease) ?J44.9 - Chronic obstructive pulmonary disease, unspecified (ICD-10) Asthma ?J45.909 - Unspecified asthma, uncomplicated (ICD-10) High cholesterol ?E78.00 - Pure hypercholesterolemia, unspecified (ICD-10) HTN (hypertension) ?I10 - Essential (primary) hypertension (ICD-10) Surgical History History of appendectomy ?Z90.49 - Acquired absence of other specified parts of digestive tract (ICD- 10) History of hysterectomy ?Z90.710 - Acquired absence of both cervix and uterus (ICD-10) History of neck surgery ?Z98.890 - Other specified postprocedural states (ICD-10) Hx of cholecystectomy ?Z90.49 - Acquired absence of other specified parts of digestive tract (ICD- 10) History of lumbar laminectomy ?Z98.890 - Other specified postprocedural states (ICD-10) History of cardiac cath ?Z98.890 - Other specified postprocedural states (ICD-10) Meds Home Medications and Allergies Home Medications ?Medication ?Instructions ?Recorded ?Confirmed ?Type GLUCOSAMINE DAILY 04/26/23 History PRO AIR 04/26/23 History RAMIPRIDE 10 mg DAILY 04/26/23 History allopurinol 200 mg tablet 200 mg PO DAILY 04/26/23 02/15/24 History aspirin 81 mg tablet,delayed 81 mg PO DAILY 04/26/23 02/15/24 History release atorvastatin 80 mg tablet 80 mg PO DAILY 04/26/23 02/15/24 History baclofen 10 mg tablet 10 mg PO DAILY 04/26/23 02/15/24 History fluticasone furoate 100 1 inh inhalation DAILY 04/26/23 02/15/24 History mcg-vilanterol 25 mcg/dose inhalation powder (Breo Ellipta) furosemide 80 mg tablet 80 mg PO BID 04/26/23 02/15/24 History insulin glargine 100 unit/mL 46 unit subcut DAILY 04/26/23 02/15/24 History subcutaneous solution (Lantus U-100 Insulin) insulin lispro 100 unit/mL 6 unit subcut BID 04/26/23 02/15/24 History subcutaneous pen metoclopramide HCl 10 mg tablet 10 mg PO DAILY 04/26/23 02/15/24 History omeprazole 20 mg tablet,delayed 20 mg PO BID 04/26/23 02/15/24 History release theophylline 400 mg 400 mg PO DAILY 04/26/23 02/15/24 History tablet,extended release 24 hr pregabalin 75 mg capsule (Lyrica) 75 mg PO DAILY #30 caps 12/19/23 02/15/24 Rx magnesium infusion 2,000 mg IV drip .weekly 02/15/24 02/15/24 History tramadol 100 mg capsule 100 mg PO DAILY 02/15/24 02/15/24 History 24h,extended release(25-75) tramadol 100 mg tablet,extended 100 mg PO DAILY PRN pain #30 tabs 03/19/24 Rx release 24hr mphase pregabalin 75 mg capsule (Lyrica) 75 mg PO DAILY #90 caps 05/01/24 Rx Allergies Allergy/AdvReac Type Severity Reaction Status Date / Time adhesive tape Allergy Unknown Verified 02/15/24 20:22 povidone-iodine Allergy Unknown Verified 02/15/24 20:22 [From Betadine] red dye Allergy Unknown Verified 02/15/24 20:22 Sulfa (Sulfonamide Allergy Unknown Verified 02/15/24 20:22 Antibiotics) tetracycline Allergy Unknown Verified 02/15/24 20:22 Exam Narrative Exam Narrative: Psych-alert and oriented x 3.? Attentive and appropriate, constitutionally normal, displays normal mood and affect per situation.? There are no obvious deficits in memory, reasoning, or intellect. Extremities-lower extremities are warm with minimal edema and palpable pulses. Knee-examination of the bilateral knee reveals tenderness to palpation over the superior, inferior, lateral, and medial aspect of the knee.? Some swelling is noted without erythema. Pain is elicited with flexion and extension of the knee both actively and passively.? Some grinding is noted with these motions.? There is no notable ligamental laxity or instability.? Coordination remains intact.? Gait remains antalgic. Assessment and Plan Assessment and Plan (1) Bilateral knee pain: Qualifiers: Chronicity: chronic Qualified Code(s): M25.561 - Pain in right knee; M25.562 - Pain in left knee; G89.29 - Other chronic pain (2) Lumbar stenosis with neurogenic claudication: Plan 83yof who presents for assessment. continues to have worsening knee pain. would like to repeat bilateral knee injections. i am in agreement. meds reviewed. uds obtained. pdmp reviewed. will continue tramadol and lyrica. follow up in 3 months. Procedure: Bilateral knee injection Medications: Synvisc-one I explained the details of the procedure to the patient including the risks, benefits and alternatives. We had an informed discussion and the patient verbalized understanding and signed the consent form. All questions were answered appropriately.? A time out was performed.? After obtaining a comfortable seated position, the left knee was prepped with alcohol x3. A syringe containing the above medication was attached to a 25 gauge, 1.5 inch needle under strict aseptic technique. The lateral tibial plateau was palpated.? The needle was then advanced through the subcutaneous tissue in a medial and superior direction towards the joint space.? The contents of the syringe were gently injected without any resistance. The needle was removed and pressure was applied to the injection site to decrease the incidence of ecchymosis and hematoma formation.? A sterile bandage was applied. The same procedure was then completed on the opposite side.
== END 2024-07-28 12:48 | disposition home or self-care (01) ==
LOC: PM 12:47
PROVIDERS: PCP Family Medicine; Visit Provider Anesthesiology
DX: M25.561 Pain in right knee (principal); M25.562 Pain in left knee; G89.29 Other chronic pain
CPT/HCPCS: 20610; J7326

== ENCOUNTER 2024-10-29 13:05 | Outpatient (OUT) | payer MEDICARE, SELFPAY ==
--- NOTE | 2024-10-29 13:44 | P.CN_ITS ---
Consult Note: HPI Data of Consult Patient: known to practice within the last 3 years Consult date: 07/28/24 Requesting Physician: Pao Good NP Primary Care Provider: SHANDA CLARK Consult Narrative Reason for consult: bilateral knee pain and low back pain Narrative: 83yof who presents for assessment of lumbar stenosis with NC and OA of bilateral knees. continues to use tramadol and lyrica. denies adverse med side effects. pain today 8/10 increasing with standing walking and activity. denies falls, continues to utilize walker. cc:: CC: Pao Good NP Review of Systems ROS Status of ROS 10 or more systems reviewed and unremark able except as noted in history and below Musculoskeletal Reports: back pain, extremity pain and joint pain PFSH PFSH Medical History (Updated 07/28/24 @ 14:05 by Christian Curtis MD) Osteoarthritis ?M19.90 - Unspecified osteoarthritis, unspecified site (ICD-10) Anemia ?D64.9 - Anemia, unspecified (ICD-10) Carpal tunnel syndrome ?G56.00 - Carpal tunnel syndrome, unspecified upper limb (ICD-10) Acid reflux ?K21.9 - Gastro-esophageal reflux disease without esophagitis (ICD-10) Diabetes ?E11.9 - Type 2 diabetes mellitus without complications (ICD-10) Cirrhosis of liver ?K74.60 - Unspecified cirrhosis of liver (ICD-10) Kidney stone ?N20.0 - Calculus of kidney (ICD-10) Kidney failure ?N19 - Unspecified kidney failure (ICD-10) COPD (chronic obstructive pulmonary disease) ?J44.9 - Chronic obstructive pulmonary disease, unspecified (ICD-10) Asthma ?J45.909 - Unspecified asthma, uncomplicated (ICD-10) High cholesterol ?E78.00 - Pure hypercholesterolemia, unspecified (ICD-10) HTN (hypertension) ?I10 - Essential (primary) hypertension (ICD-10) Surgical History History of appendectomy ?Z90.49 - Acquired absence of other specified parts of digestive tract (ICD- 10) History of hysterectomy ?Z90.710 - Acquired absence of both cervix and uterus (ICD-10) History of neck surgery ?Z98.890 - Other specified postprocedural states (ICD-10) Hx of cholecystectomy ?Z90.49 - Acquired absence of other specified parts of digestive tract (ICD- 10) History of lumbar laminectomy ?Z98.890 - Other specified postprocedural states (ICD-10) History of cardiac cath ?Z98.890 - Other specified postprocedural states (ICD-10) Meds Home Medications and Allergies Home Medications ?Medication ?Instructions ?Recorded ?Confirmed ?Type GLUCOSAMINE DAILY 04/26/23 History PRO AIR 04/26/23 History RAMIPRIDE 10 mg DAILY 04/26/23 History allopurinol 200 mg tablet 200 mg PO DAILY 04/26/23 02/15/24 History aspirin 81 mg tablet,delayed 81 mg PO DAILY 04/26/23 02/15/24 History release atorvastatin 80 mg tablet 80 mg PO DAILY 04/26/23 02/15/24 History baclofen 10 mg tablet 10 mg PO DAILY 04/26/23 02/15/24 History fluticasone furoate 100 1 inh inhalation DAILY 04/26/23 02/15/24 History mcg-vilanterol 25 mcg/dose inhalation powder (Breo Ellipta) furosemide 80 mg tablet 80 mg PO BID 04/26/23 02/15/24 History insulin glargine 100 unit/mL 46 unit subcut DAILY 04/26/23 02/15/24 History subcutaneous solution (Lantus U-100 Insulin) insulin lispro 100 unit/mL 6 unit subcut BID 04/26/23 02/15/24 History subcutaneous pen metoclopramide HCl 10 mg tablet 10 mg PO DAILY 04/26/23 02/15/24 History omeprazole 20 mg tablet,delayed 20 mg PO BID 04/26/23 02/15/24 History release theophylline 400 mg 400 mg PO DAILY 04/26/23 02/15/24 History tablet,extended release 24 hr pregabalin 75 mg capsule (Lyrica) 75 mg PO DAILY #30 caps 12/19/23 02/15/24 Rx magnesium infusion 2,000 mg IV drip .weekly 02/15/24 02/15/24 History tramadol 100 mg capsule 100 mg PO DAILY 02/15/24 02/15/24 History 24h,extended release(25-75) tramadol 100 mg tablet,extended 100 mg PO DAILY PRN pain #30 tabs 03/19/24 Rx release 24hr mphase pregabalin 75 mg capsule (Lyrica) 75 mg PO DAILY #90 caps 05/01/24 Rx pregabalin 75 mg capsule (Lyrica) 75 mg PO DAILY #30 caps 09/16/24 Rx tramadol 100 mg tablet,extended 100 mg PO DAILY PRN pain #30 tabs 09/16/24 Rx release 24 hr pregabalin 75 mg capsule (Lyrica) 75 mg PO DAILY #30 caps 10/07/24 Rx tramadol 100 mg tablet,extended 100 mg PO DAILY #30 tabs 10/07/24 Rx release 24 hr Allergies Allergy/AdvReac Type Severity Reaction Status Date / Time adhesive tape Allergy Unknown Verified 02/15/24 20:22 povidone-iodine (From Allergy Unknown Verified 02/15/24 20:22 Betadine) red dye Allergy Unknown Verified 02/15/24 20:22 Sulfa (Sulfonamide Allergy Unknown Verified 02/15/24 20:22 Antibiotics) tetracycline Allergy Unknown Verified 02/15/24 20:22 Exam Narrative Exam Narrative: perior, inferior, lateral, and medial aspect of the knee.? Some swelling is noted without erythema. Pain is elicited with flexion and extension of the knee both actively and passively.? Some grinding is noted with these motions.? There is no notable ligamental laxity or instability.? Back & Pelvis Lumbar spine/lower back: ROM limited, pain with ROM, straight leg raise positive right and straight leg raise positive left Other: decreased sensation to BLE following L4/5 strength 4/5 in BLE Assessment and Plan Assessment and Plan (1) Bilateral knee pain: Qualifiers: Chronicity: chronic Qualified Code(s): M25.561 - Pain in right knee; M25.562 - Pain in left knee; G89.29 - Other chronic pain (2) Lumbar stenosis with neurogenic claudication: Plan repeat bilateral L4-5 TFESI under fluoroscopy, previous injection provided >50% improvement greater than 3 months consider bilateral genicular nerve blocks working towards RFA in the future continue current medications, do not recommend increasing tramadol as the is high risk for opioid therapy due to CKD continue HEP as tolerated update UDS today f/u after injection
== END 2024-10-29 13:06 | disposition home or self-care (01) ==
LOC: PM 13:06
PROVIDERS: PCP Family Medicine; Visit Provider Nurse Practitioner
DX: M25.561 Pain in right knee (principal); M25.562 Pain in left knee; G89.29 Other chronic pain; M48.062 Spinal stenosis, lumbar region with neurogenic claudication
CPT/HCPCS: G0463

== ENCOUNTER 2024-11-03 08:52 | Day surgery (SDC) | payer MEDICARE, SELFPAY ==
[2024-11-03 09:15] VITALS: BP 123/67; PULSE 85; TEMP 36.8; O2SAT 98
[2024-11-03 09:21] LABS: Glucometer 163 mg/dL (74-106)
[2024-11-03 09:46] VITALS: BP 157/72; PULSE 85; PULSE 86; O2SAT 96; O2SAT 97
[2024-11-03 09:47] VITALS: BP 167/71
[2024-11-03] MEDS: 0.9 % SODIUM CHLORIDE 10 ML SYRINGE - SALINE FLUSH INJ (09:48)
[2024-11-03] MEDS: BUPIVACAINE HCL 0.25% PF 25 MG/10 ML VIAL INJ (09:49)
[2024-11-03] MEDS: METHYLPREDNISOLONE ACETATE 80 MG/ML VIAL INJ (09:49)
[2024-11-03] MEDS: IOHEXOL 240 MG/ML - 10 ML VIAL INJ (09:49)
[2024-11-03] MEDS: LIDOCAINE HCL 2% 400 MG/20 ML MDV 5 ML INJ (09:50)
--- NOTE | 2024-11-03 09:53 | W.PM.PROCNOT ---
Date of procedure: 11/03/24 Pre-op diagnosis: Pain due to lumbar stenosis with neurogenic claudication Post-op diagnosis: same as pre-op Procedure: Procedure: Bilateral L4-5 transforaminal epidural steroid injection Medications: Bupivacaine 0.25% 2cc, lidocaine 2% 1cc, depomedrol 80mg The patient was seen and examined in the preoperative holding area.? Informed consent was obtained and placed on the chart.? Patient was brought to the medical procedure unit and placed in the prone position where a timeout was completed verifying the correct patient, procedure site, position, and planned special equipment using sterile aseptic technique.? Under direct fluoroscopic visualization a 25-gauge Quincke tipped spinal needle was advanced at level left L4-5 to the designated neural foramen where contrast dye was injected to show adequate spread.? There was no evidence of vascular or adverse uptake.? Epidural spread was appreciated.? The above-mentioned injectate was then placed in a 1.5 mL aliquot preceded by negative aspiration.? The needle was removed. The same procedure, at the same level, was completed on the opposite side. ? Patient was taken to the postprocedural recovery area and monitored for an appropriate length of time before found suitable for discharge in the accompaniment of a responsible adult. Anesthesia: Local Surgeon: Christian Curtis Pathology: none sent Condition: stable Disposition: no change
== END 2024-11-03 10:03 | disposition home or self-care (01) ==
LOC: SURGOUT 08:53
PROVIDERS: PCP Family Medicine; Visit Provider Anesthesiology
DX: M48.062 Spinal stenosis, lumbar region with neurogenic claudication (principal); E11.9 Type 2 diabetes mellitus without complications; Z79.4 Long term (current) use of insulin
CPT/HCPCS: 36415; 64483; 82948; J0665; J1010; Q9966

== ENCOUNTER 2024-11-13 15:02 | Outpatient (OUT) | payer MEDICARE, SELFPAY ==
--- NOTE | 2024-11-13 15:19 | P.CN_ITS ---
Consult Note: HPI Data of Consult Patient: known to practice within the last 3 years Consult date: 07/28/24 Requesting Physician: Pao Good NP Primary Care Provider: SHANDA CLARK Consult Narrative Reason for consult: bilateral knee pain and low back pain Narrative: 83yof who presents for assessment of lumbar stenosis with NC and OA of bilateral knees. continues to use tramadol and lyrica. denies adverse med side effects. pain today 4/10 increasing with standing walking and activity. low back pain increases to 4/10 at the worst, bilateral knee pain up to 9/10. denies falls, continues to utilize walker. recently underwent repeat bilateral L4-5 TFESI with >80% improvement ongoing. cc:: CC: Pao Good NP Review of Systems ROS Status of ROS 10 or more systems reviewed and unremark able except as noted in history and below Musculoskeletal Reports: back pain, extremity pain and joint pain PFSH PFS Medical History (Updated 11/13/24 @ 15:38 by Pao Good NP) Osteoarthritis ?M19.90 - Unspecified osteoarthritis, unspecified site (ICD-10) Anemia ?D64.9 - Anemia, unspecified (ICD-10) Carpal tunnel syndrome ?G56.00 - Carpal tunnel syndrome, unspecified upper limb (ICD-10) Acid reflux ?K21.9 - Gastro-esophageal reflux disease without esophagitis (ICD-10) Diabetes ?E11.9 - Type 2 diabetes mellitus without complications (ICD-10) Cirrhosis of liver ?K74.60 - Unspecified cirrhosis of liver (ICD-10) Kidney stone ?N20.0 - Calculus of kidney (ICD-10) Kidney failure ?N19 - Unspecified kidney failure (ICD-10) COPD (chronic obstructive pulmonary disease) ?J44.9 - Chronic obstructive pulmonary disease, unspecified (ICD-10) Asthma ?J45.909 - Unspecified asthma, uncomplicated (ICD-10) High cholesterol ?E78.00 - Pure hypercholesterolemia, unspecified (ICD-10) HTN (hypertension) ?I10 - Essential (primary) hypertension (ICD-10) Surgical History History of appendectomy ?Z90.49 - Acquired absence of other specified parts of digestive tract (ICD- 10) History of hysterectomy ?Z90.710 - Acquired absence of both cervix and uterus (ICD-10) History of neck surgery ?Z98.890 - Other specified postprocedural states (ICD-10) Hx of cholecystectomy ?Z90.49 - Acquired absence of other specified parts of digestive tract (ICD- 10) History of lumbar laminectomy ?Z98.890 - Other specified postprocedural states (ICD-10) History of cardiac cath ?Z98.890 - Other specified postprocedural states (ICD-10) Meds Home Medications and Allergies Home Medications ?Medication ?Instructions ?Recorded ?Confirmed ?Type GLUCOSAMINE DAILY 04/26/23 History PRO AIR 04/26/23 History RAMIPRIDE 10 mg DAILY 04/26/23 History allopurinol 200 mg tablet 200 mg PO DAILY 04/26/23 11/03/24 History aspirin 81 mg tablet,delayed 81 mg PO DAILY 04/26/23 11/03/24 History release atorvastatin 80 mg tablet 80 mg PO DAILY 04/26/23 11/03/24 History baclofen 10 mg tablet 10 mg PO DAILY 04/26/23 11/03/24 History fluticasone furoate 100 1 inh inhalation DAILY 04/26/23 11/03/24 History mcg-vilanterol 25 mcg/dose inhalation powder (Breo Ellipta) furosemide 80 mg tablet 80 mg PO BID 04/26/23 11/03/24 History insulin glargine 100 unit/mL 46 unit subcut DAILY 04/26/23 11/03/24 History subcutaneous solution (Lantus U-100 Insulin) insulin lispro 100 unit/mL 6 unit subcut BID 04/26/23 11/03/24 History subcutaneous pen metoclopramide HCl 10 mg tablet 10 mg PO DAILY 04/26/23 11/03/24 History omeprazole 20 mg tablet,delayed 20 mg PO BID 04/26/23 11/03/24 History release theophylline 400 mg 400 mg PO DAILY 04/26/23 11/03/24 History tablet,extended release 24 hr magnesium infusion 2,000 mg IV drip .weekly 02/15/24 11/03/24 History pregabalin 75 mg capsule (Lyrica) 75 mg PO DAILY #30 caps 10/07/24 11/03/24 Rx tramadol 100 mg tablet,extended 100 mg PO DAILY #30 tabs 10/07/24 11/03/24 Rx release 24 hr Allergies Allergy/AdvReac Type Severity Reaction Status Date / Time adhesive tape Allergy Unknown rash Verified 11/03/24 09:23 povidone-iodine (From Allergy Unknown Rash Verified 11/03/24 09:23 Betadine) red dye Allergy Unknown Rash Verified 11/03/24 09:23 Sulfa (Sulfonamide Allergy Unknown Rash Verified 11/03/24 09:23 Antibiotics) tetracycline Allergy Unknown Rash Verified 11/03/24 09:23 Exam Constitutional Documenting provider has reviewed patient's vital signs: yes Common normals: no apparent distress, oriented x3, healthy appearing, alert and well nourished General appearance: cooperative HENMT Common normals: normocephalic, hearing grossly normal bilaterally and moist oral mucous membranes Head and scalp: normocephalic Eye Common normals: PERRL Pupil: PERRL Neck & C-Spine Common normals: full ROM General: normal visual inspection Chest Common normals: inspection of chest normal Respiratory Common normals: normal respiratory effort, no retractions and no use of accessory muscles Back & Pelvis Lumbar spine/lower back: ROM limited, pain with ROM and straight leg raise negative bilaterally Other: decreased sensation to BLE following L4/5 strength 4/5 in BLE Extremity Common normals: full ROM General: edema Right lower extremity: knee joint Left lower extremity: knee joint Other: enlarged diameter bilateral knees. Neuro Common normals: oriented x3, CN's II-XII intact bilaterally, moves all extremities, no focal motor deficits, no sensory deficits noted and deep tendon reflexes 2+ bilaterally Sensorium/orientation: alert Gait (neuro): antalgic and assistive device used walker Motor exam: strength 5/5 throughout and no movement abnormalities noted Psych Common normals: mental status grossly normal, thought process normal, cooperative, affect normal, speech normal and activity/motor behavior normal Speech: normal speech Thought process: normal thought process Assessment and Plan Assessment and Plan (1) Lumbar stenosis with neurogenic claudication: (2) Bilateral knee pain: Qualifiers: Chronicity: chronic Qualified Code(s): M25.561 - Pain in right knee; M25.562 - Pain in left knee; G89.29 - Other chronic pain (3) Chronic use of opiate drug for therapeutic purpose: Plan consider bilateral genicular nerve blocks working towards RFA in the future, declining at this time continue current medications, do not recommend increasing tramadol as the is high risk for opioid therapy due to CKD continue HEP as tolerated f/u 3 months, sooner if needed
== END 2024-11-13 15:03 | disposition home or self-care (01) ==
LOC: PM 15:02
PROVIDERS: PCP Family Medicine; Visit Provider Nurse Practitioner
DX: M48.062 Spinal stenosis, lumbar region with neurogenic claudication (principal); M25.561 Pain in right knee; M25.562 Pain in left knee; G89.29 Other chronic pain
CPT/HCPCS: G0463

== ENCOUNTER 2024-11-20 03:43 | Emergency (ER) | payer MEDICARE, SELFPAY ==
[2024-11-20 03:48] VITALS: BP 214/112; TEMP 37; O2SAT 96; BMI 43.6
[2024-11-20 03:56] VITALS: BP 200/108; PULSE 99
--- NOTE | 2024-11-20 03:59 | ECG_ITS ---
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
--- NOTE | 2024-11-20 04:00 | ED.GENADUL1 ---
HPI HPI - General Adult General Chief complaint: Extremity Problem, Nontraumatic Stated complaint: UTI SYMPTOMS Time Seen by Provider: 11/20/24 03:48 Source: patient Mode of arrival: ambulance History of Present Illness HPI narrative: 84-year-old female presents for dysuria and concern of UTI. She comes from home by paramedics. She does not complain of fever or vomiting. It is not clear how long she has had the dysuria, perhaps a day or 2. Related Data Home Medications ?Medication ?Instructions ?Recorded ?Confirmed GLUCOSAMINE DAILY 04/26/23 PRO AIR 04/26/23 RAMIPRIDE 10 mg DAILY 04/26/23 allopurinol 200 mg tablet 200 mg PO DAILY 04/26/23 11/03/24 aspirin 81 mg tablet,delayed 81 mg PO DAILY 04/26/23 11/03/24 release atorvastatin 80 mg tablet 80 mg PO DAILY 04/26/23 11/03/24 baclofen 10 mg tablet 10 mg PO DAILY 04/26/23 11/03/24 fluticasone furoate 100 1 inh inhalation DAILY 04/26/23 11/03/24 mcg-vilanterol 25 mcg/dose inhalation powder (Breo Ellipta) furosemide 80 mg tablet 80 mg PO BID 04/26/23 11/03/24 insulin glargine 100 unit/mL 46 unit subcut DAILY 04/26/23 11/03/24 subcutaneous solution (Lantus U-100 Insulin) insulin lispro 100 unit/mL 6 unit subcut BID 04/26/23 11/03/24 subcutaneous pen metoclopramide HCl 10 mg tablet 10 mg PO DAILY 04/26/23 11/03/24 omeprazole 20 mg tablet,delayed 20 mg PO BID 04/26/23 11/03/24 release theophylline 400 mg 400 mg PO DAILY 04/26/23 11/03/24 tablet,extended release 24 hr magnesium infusion 2,000 mg IV drip .weekly 02/15/24 11/03/24 Previous Rx's ?Medication ?Instructions ?Recorded pregabalin 75 mg capsule (Lyrica) 75 mg PO DAILY #30 caps 10/07/24 tramadol 100 mg tablet,extended 100 mg PO DAILY #30 tabs 10/07/24 release 24 hr cephalexin 500 mg capsule 500 mg PO TID 7 days #21 caps 11/20/24 Allergies Allergy/AdvReac Type Severity Reaction Status Date / Time adhesive tape Allergy Unknown rash Verified 11/20/24 03:48 povidone-iodine (From Allergy Unknown Rash Verified 11/20/24 03:48 Betadine) red dye Allergy Unknown Rash Verified 11/20/24 03:48 Sulfa (Sulfonamide Allergy Unknown Rash Verified 11/20/24 03:48 Antibiotics) tetracycline Allergy Unknown Rash Verified 11/20/24 03:48 Opioid HPI Opioid Management Most Recent Opioid Data: Last Pain Scale 10 11/20/24 04:57 11/20/24 Last MAR Pain Assessment 11/20/24 04:57 Review of Systems ROS Narrative A ten point review of systems is negative except as noted above. [facility] Medical History (Updated 11/20/24 @ 05:34 by Tho Viera MD) Osteoarthritis ?M19.90 - Unspecified osteoarthritis, unspecified site (ICD-10) Anemia ?D64.9 - Anemia, unspecified (ICD-10) Carpal tunnel syndrome ?G56.00 - Carpal tunnel syndrome, unspecified upper limb (ICD-10) Acid reflux ?K21.9 - Gastro-esophageal reflux disease without esophagitis (ICD-10) Diabetes ?E11.9 - Type 2 diabetes mellitus without complications (ICD-10) Cirrhosis of liver ?K74.60 - Unspecified cirrhosis of liver (ICD-10) Kidney stone ?N20.0 - Calculus of kidney (ICD-10) Kidney failure ?N19 - Unspecified kidney failure (ICD-10) COPD (chronic obstructive pulmonary disease) ?J44.9 - Chronic obstructive pulmonary disease, unspecified (ICD-10) Asthma ?J45.909 - Unspecified asthma, uncomplicated (ICD-10) High cholesterol ?E78.00 - Pure hypercholesterolemia, unspecified (ICD-10) HTN (hypertension) ?I10 - Essential (primary) hypertension (ICD-10) Surgical History History of appendectomy ?Z90.49 - Acquired absence of other specified parts of digestive tract (ICD-10) History of hysterectomy ?Z90.710 - Acquired absence of both cervix and uterus (ICD-10) History of neck surgery ?Z98.890 - Other specified postprocedural states (ICD-10) Hx of cholecystectomy ?Z90.49 - Acquired absence of other specified parts of digestive tract (ICD-10) History of lumbar laminectomy ?Z98.890 - Other specified postprocedural states (ICD-10) History of cardiac cath ?Z98.890 - Other specified postprocedural states (ICD-10) Social History Little interest or pleasure in doing things: not at all Feeling down, depressed, or hopeless: not at all Exam Narrative Exam Narrative: Nurses note and vital signs reviewed and patient is not hypoxic. General: The patient appears well and in no apparent distress. Patient is resting comfortably on cart. Skin: Warm, dry, no pallor noted. There is no rash noted. Head: Normocephalic, atraumatic Eye: Normal conjunctiva, no drainage Ears, Nose, Mouth, and Throat: oral mucosa is moist. Nares patent. Cardiovascular: Regular Rate and Rhythm Respiratory: Patient is in no distress, no accessory muscle use, lungs are clear to auscultation, no wheezing, rales or rhonchi GI: Soft and no appreciable tenderness Musculoskeletal: No joint swelling Neurological: A&O x4, normal speech, mildly tremorous Psychiatric: Cooperative Constitutional Vital Signs, click to edit/add: Last Vital Signs Temp 98.6 F 11/20/24 03:48 Pulse 100 H 11/20/24 04:32 Resp 19 11/20/24 04:32 BP 173/77 H 11/20/24 04:32 Pulse Ox 95 11/20/24 04:32 O2 Del Method Room Air 11/20/24 03:48 Course Vital Signs Vital signs: Vital Signs Temperature 98.6 F 11/20/24 03:48 Respiratory Rate 18 11/20/24 03:48 Blood Pressure 214/112 H 11/20/24 03:48 Pulse Oximetry 96 11/20/24 03:48 Oxygen Delivery Method Room Air 11/20/24 03:48 Temperature 98.6 F 11/20/24 03:48 Pulse Rate 100 H 11/20/24 04:32 Respiratory Rate 19 11/20/24 04:32 Blood Pressure 173/77 H 11/20/24 04:32 Pulse Oximetry 95 11/20/24 04:32 Oxygen Delivery Method Room Air 11/20/24 03:48 Medical Decision Making MDM Narrative Medical decision making narrative: UTI was identified. She was given IV Rocephin and prescribed Keflex. Urine culture pending. She does not have a fever and her white blood cell count is not elevated. She does not require admission to the hospital. She has allover body pain as well which is chronic and she was given Ultram and Toradol for that issue. She was recommended follow-up with pain management physician that is already established to manage her pain medication. Treatment diagnosis and follow-up were discussed with the patient and her . Lab Data Lab results reviewed: Yes I reviewed the patient's lab results Labs: Lab Results 11/20/24 11/20/24 Range/Units 03:50 04:20 WBC 10.2 (4.0-11.0) 10^3/uL RBC 4.04 L (4.20-5.40) 10^6/uL Hgb 12.0 (12.0-16.0) g/dL Hct 37.8 (36.0-48.0) % MCV 93.6 (81.0-99.0) fL MCH 29.7 (26.7-34.0) pg MCHC 31.7 (29.9-35.2) g/dL RDW 14.8 (11.0-15.0) % Plt Count 176 (150-450) 10^3/uL MPV 11.1 (9.5-13.5) fL Neut % (Auto) 74.5 (43.0-75.0) % Lymph % (Auto) 13.8 L (20.5-60.0) % [place] % (Auto) 9.4 (1.7-12.0) % Eos % (Auto) 1.5 (0.9-7.0) % Baso % (Auto) 0.4 (0.2-2.0) % Neut # (Auto) 7.6 H (1.4-6.5) 10^3/uL Lymph # (Auto) 1.4 (1.2-3.8) 10^3/uL [place] # (Auto) 1.0 H (0.3-0.8) 10^3/uL Eos # (Auto) 0.2 (0.0-0.7) 10^3/uL Baso # (Auto) 0.0 (0.0-0.1) 10^3/uL Abs Immat Gran (auto) 0.04 H (0.00-0.03) 10^3/uL Imm/Tot Granulo (auto) 0.4 (0.0-0.5) % Sodium 145 (136-145) mmol/L Potassium 4.2 (3.5-5.1) mmol/L Chloride 110 H (98-107) mmol/L Carbon Dioxide 24.1 (21.0-32.0) mmol/L Anion Gap 15.1 BUN 41.0 H (7.0-18.0) mg/dL Creatinine 1.78 H (0.55-1.02) mg/dL Est GFR ( Amer) 33 L (>=60 mL/min/1.73m^2) Est GFR (Non-Af Amer) 27 L (>=60 mL/min/1.73m^2) BUN/Creatinine Ratio 23.0 Glucose 96 (74-106) mg/dL Calcium 9.6 (8.5-10.1) mg/dL Urine Color Lt. yellow (YELLOW) Urine Clarity Cloudy A (CLEAR) Urine pH 5.5 (5.0-9.0) Ur Specific [place] 1.025 (1.005-1.025) Urine Protein 100 A (NEG/TRACE) mg/dL Urine Glucose (UA) Negative (NEGATIVE) mg/dL Urine Ketones Negative (NEGATIVE) mg/dL Urine Occult Blood Small A (NEGATIVE) Urine Nitrite Positive A (NEGATIVE) Urine Bilirubin Negative (NEGATIVE) Urine Urobilinogen 0.2 (0.2-1.0) EU/dL Ur Leukocyte Esterase Moderate A (NEGATIVE) Urine RBC 2-5 A (0-2) #/HPF Urine WBC >100 A (NONE SEEN) #/HPF Ur Squamous Epith Cells Rare (NONE/RARE) #/LPF Urine Crystals None seen (None Seen) #/HPF Urine Bacteria Large A (NONE SEEN) #/HPF Urine Casts None seen (NONE SEEN) #/LPF Urine Mucus None seen (NONE SEEN) Ur Culture Indicated? Yes Ref Lab Order Date 11/20/24 Ref Lab Test Name Urine cx Ref Test Addition Info [facility] [place] ECG Data Attestation: I personally reviewed and interpreted this ECG as follows: (EKG on my interpretation shows sinus rhythm with rate of 99 and a PVC) Discharge Plan Discharge Chief Complaint: Extremity Problem, Nontraumatic Clinical Impression: Urinary tract infection Patient Disposition: Home, Self-Care Time of Disposition Decision: 05:34 Condition: Good Mode of Transportation: Private Vehicle Prescriptions / Home Meds: New cephalexin 500 mg capsule 500 mg PO TID 7 Days Qty: 21 0RF No Action allopurinol 200 mg tablet 200 mg PO DAILY aspirin 81 mg tablet,delayed release (DR/EC) 81 mg PO DAILY atorvastatin 80 mg tablet 80 mg PO DAILY baclofen 10 mg tablet 10 mg PO DAILY fluticasone furoate-vilanterol [Breo Ellipta] 100-25 mcg/dose blister with device 1 inh inhalation DAILY furosemide 80 mg tablet 80 mg PO BID GLUCOSAMINE DAILY insulin lispro 100 unit/mL insulin pen 6 unit subcut BID insulin glargine [Lantus U-100 Insulin] 100 unit/mL solution 46 unit subcut DAILY metoclopramide HCl 10 mg tablet 10 mg PO DAILY omeprazole 20 mg tablet,delayed release (DR/EC) 20 mg PO BID PRO AIR RAMIPRIDE 10 mg DAILY theophylline 400 mg tablet extended release 24 hr 400 mg PO DAILY magnesium infusion 2,000 mg IV drip .weekly Rx Instructions: onTues. tramadol 100 mg tablet extended release 24 hr 100 mg PO DAILY Qty: 30 0RF Rx Instructions: DO NOT FILL TILL 10/17/24 MUST LAST 30 DAYS pregabalin [Lyrica] 75 mg capsule 75 mg PO DAILY Qty: 30 0RF Rx Instructions: DO NOT FILL TILL 24 Print Language: Kyrgyz Instructions: Urinary Tract Infection in Older Adults (ED) Additional Instructions: Your pain management physician will need to manage your pain medications. Referrals: SHANDA CLARK [Primary Care Provider] - 1 week
--- NOTE | 2024-11-20 04:05 | PC.NURSE ---
this patient arrives via ems from home with complaints of body pain, left and right knee pain. this patient voices increase urination. plus this patient did not take her evening dose medication for her blood pressure. this patient denies any recent falls,injury or trauma to cause this body pain and knee pain
[2024-11-20 04:11] LABS: Basophils Percent Auto 0.4 % (0.2-2.0); Eosinophils Absolute Auto 0.2 10^3/uL (0.0-0.7); Eosinophils Percent Auto 1.5 % (0.9-7.0); Hematocrit 37.8 % (36.0-48.0); Immature Granulocytes Abs Auto 0.04 10^3/uL (0.00-0.03); Immature Granulocytes Pct Auto 0.4 % (0.0-0.5); Lymphocytes Absolute Auto 1.4 10^3/uL (1.2-3.8); Lymphocytes Percent Auto 13.8 % (20.5-60.0); Mean Corpuscular HGB Conc 31.7 g/dL (29.9-35.2); Mean Corpuscular Hemoglobin 29.7 pg (26.7-34.0); Mean Corpuscular Volume 93.6 fL (81.0-99.0); Mean Platelet Volume 11.1 fL (9.5-13.5); Monocytes Percent Auto 9.4 % (1.7-12.0); Neutrophils Absolute Auto 7.6 10^3/uL (1.4-6.5); Neutrophils Percent Auto 74.5 % (43.0-75.0); Platelet Count 176 10^3/uL (150-450); Red Blood Count 4.04 10^6/uL (4.20-5.40); Red Cell Distribution Width 14.8 % (11.0-15.0); White Blood Count 10.2 10^3/uL (4.0-11.0)
[2024-11-20 04:21] LABS: Anion Gap 15.1; Calcium 9.6 mg/dL (8.5-10.1); Carbon Dioxide 24.1 mmol/L (21.0-32.0); Chloride 110 mmol/L (98-107); Estimated GFR (African America 33 (>=60 mL/min/1.73m^2); Estimated GFR (Non-African Ame 27 (>=60 mL/min/1.73m^2); Glucose 96 mg/dL (74-106); Potassium 4.2 mmol/L (3.5-5.1); Sodium 145 mmol/L (136-145)
--- NOTE | 2024-11-20 04:23 | PC.NURSE ---
this patient's (josie) is now in the room now
[2024-11-20 04:25] LABS: Bilirubin Urine NEGATIVE (NEGATIVE); Blood Urine SMALL (NEGATIVE); Clarity Urine CLOUDY (CLEAR); Color Urine LT. YELLOW (YELLOW); Glucose Urine UA NEGATIVE (NEGATIVE); Ketones Urine NEGATIVE (NEGATIVE); Leukocyte Esterase Urine MODERATE (NEGATIVE); Nitrite Urine POSITIVE (NEGATIVE); Protein Urine 100 mg/dL (NEG/TRACE); Specific Gravity Urine 1.025 (1.005-1.025); Urobilinogen Urine 0.2 EU/dL (0.2-1.0); pH Urine 5.5 (5.0-9.0)
[2024-11-20 04:32] VITALS: BP 173/77; PULSE 100; O2SAT 95
[2024-11-20] MEDS: CEFTRIAXONE 1,000 MG in 0.9 % SODIUM CHLORIDE 50 ML 100 MG IV (04:42)
[2024-11-20 04:57] LABS: Bacteria Urine LARGE #/HPF (NONE SEEN); Mucus Urine NONE SEEN (NONE SEEN); WBC Urine >100 #/HPF (NONE SEEN)
[2024-11-20] MEDS: TRAMADOL HCL 50 MG TABLET PO (04:57)
[2024-11-20 04:58] LABS: Cast Seen? NONE SEEN #/LPF (NONE SEEN); Crystals Seen? None Seen #/HPF (None Seen); Squamous Epithelial Cell Urine RARE #/LPF (NONE/RARE); Urine Culture Indicated YES
[2024-11-20 05:29] LABS: BOX Test Reference Lab FRMC; BOX Test Sent Out URINE CX
[2024-11-20] MEDS: KETOROLAC TROMETHAMINE 30 MG/ML VIAL IVP (05:33)
[2024-11-20 05:35] VITALS: BP 175/88; PULSE 92; O2SAT 96
[2024-11-20] MEDS: MORPHINE SULFATE 4 MG/ML VIAL 6 MG IM (06:18)
--- NOTE | 2024-11-20 06:32 | PC.NURSE ---
i gave this patient and her verbal and written discharge orders along with 1 e-script. both patient and her voices yes to understanding these. at time of discharge this patient nor her voices no concerns and shows no signs of distress
== END 2024-11-20 06:35 | disposition home or self-care (01) ==
PROVIDERS: Emergency Provider Emergency Medicine; PCP Family Medicine
DX: N39.0 Urinary tract infection, site not specified (principal); Z90.49 Acquired absence of other specified parts of digestive tract; Z90.710 Acquired absence of both cervix and uterus
CPT/HCPCS: 36415; 80048; 81001; 85025; 87086; 87150; 87186; 93005; 96365; 96372; 96375; 99284; J0696; J1885; J2270

== ENCOUNTER 2024-11-24 10:39 | Inpatient (IN) | payer MEDICARE, SELFPAY ==
[2024-11-24] VITALS (15 sets, daily range): BP systolic 142–158; BP diastolic 67–88; PULSE 71–103; TEMP 36.4; O2SAT 95–99; BMI 44.1; BMI 45.8
--- NOTE | 2024-11-24 10:56 | XR_ITS ---
The [address] [address] Patient Name: DAVID DUGAN MRN: [id number] date: 1940 Sex: F Assigned Patient Location: ER Current Patient Location: ER Accession/Order Number: [id number] Exam Date: 11/24/2024 11:25 Report Date: 11/24/2024 11:53 At the request of: CHARLENE PARR Procedure: XR chest 1V EXAM: XR chest 1V HISTORY: . Altered mental status . COMPARISON: 09/10/2018 TECHNIQUE: Single view of the chest FINDINGS: Heart is slightly enlarged. Vascularity is unremarkable. Lungs are free of focal infiltrates. Grossly no acute bony abnormality is appreciated. EKG leads overlie the chest. XR/XR chest 1V IMPRESSION: 1. Cardiac enlargement. 2. No infiltrates. Electronically authenticated by: KAREY OJEDA Date: 11/24/2024 11:53
--- NOTE | 2024-11-24 10:56 | ECG_ITS ---
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
--- NOTE | 2024-11-24 10:57 | ED.GENADUL1 ---
HPI HPI - General Adult General Chief complaint: Weakness Stated complaint: hallucinations Time Seen by Provider: 11/24/24 10:44 Mode of arrival: walk-in History of Present Illness HPI narrative: 84-year-old female presents to the emergency department for not acting herself. She was here 4 days ago and was diagnosed with UTI. She was given Rocephin and prescribed Keflex which she has been taking and states that she seemed to be improving. Over the past day however she has been confused. He states that when he gives her the medicine and a little cup she takes it and then tries to look in the cup for some more and is confused that she thinks that there is more. The patient tells me that sometimes she sees people in their home out of the corner of her eye and there is nobody there. Related Data Home Medications ?Medication ?Instructions ?Recorded ?Confirmed GLUCOSAMINE DAILY 04/26/23 PRO AIR 04/26/23 RAMIPRIDE 10 mg DAILY 04/26/23 allopurinol 200 mg tablet 200 mg PO DAILY 04/26/23 11/24/24 aspirin 81 mg tablet,delayed 81 mg PO DAILY 04/26/23 11/24/24 release atorvastatin 80 mg tablet 80 mg PO DAILY 04/26/23 11/24/24 baclofen 10 mg tablet 10 mg PO DAILY 04/26/23 11/24/24 fluticasone furoate 100 1 inh inhalation DAILY 04/26/23 11/24/24 mcg-vilanterol 25 mcg/dose inhalation powder (Breo Ellipta) furosemide 80 mg tablet 80 mg PO BID 04/26/23 11/24/24 insulin glargine 100 unit/mL 46 unit subcut DAILY 04/26/23 11/24/24 subcutaneous solution (Lantus U-100 Insulin) insulin lispro 100 unit/mL 6 unit subcut BID 04/26/23 11/24/24 subcutaneous pen metoclopramide HCl 10 mg tablet 10 mg PO DAILY 04/26/23 11/24/24 omeprazole 20 mg tablet,delayed 20 mg PO BID 04/26/23 11/24/24 release theophylline 400 mg 400 mg PO DAILY 04/26/23 11/24/24 tablet,extended release 24 hr magnesium infusion 2,000 mg IV drip .weekly 02/15/24 11/03/24 Previous Rx's ?Medication ?Instructions ?Recorded pregabalin 75 mg capsule (Lyrica) 75 mg PO DAILY #30 caps 10/07/24 tramadol 100 mg tablet,extended 100 mg PO DAILY #30 tabs 10/07/24 release 24 hr cephalexin 500 mg capsule 500 mg PO TID 7 days #21 caps 11/20/24 Allergies Allergy/AdvReac Type Severity Reaction Status Date / Time adhesive tape Allergy Unknown rash Verified 11/20/24 03:48 povidone-iodine (From Allergy Unknown Rash Verified 11/20/24 03:48 Betadine) red dye Allergy Unknown Rash Verified 11/20/24 03:48 Sulfa (Sulfonamide Allergy Unknown Rash Verified 11/20/24 03:48 Antibiotics) tetracycline Allergy Unknown Rash Verified 11/20/24 03:48 Opioid HPI Opioid Management Most Recent Opioid Data: Last Pain Scale 8 11/20/24 06:18 11/20/24 Review of Systems ROS Narrative A ten point review of systems is negative except as noted above. [facility] Medical History (Updated 11/24/24 @ 13:43 by Tho Viera MD) Osteoarthritis ?M19.90 - Unspecified osteoarthritis, unspecified site (ICD-10) Anemia ?D64.9 - Anemia, unspecified (ICD-10) Carpal tunnel syndrome ?G56.00 - Carpal tunnel syndrome, unspecified upper limb (ICD-10) Acid reflux ?K21.9 - Gastro-esophageal reflux disease without esophagitis (ICD-10) Diabetes ?E11.9 - Type 2 diabetes mellitus without complications (ICD-10) Cirrhosis of liver ?K74.60 - Unspecified cirrhosis of liver (ICD-10) Kidney stone ?N20.0 - Calculus of kidney (ICD-10) Kidney failure ?N19 - Unspecified kidney failure (ICD-10) COPD (chronic obstructive pulmonary disease) ?J44.9 - Chronic obstructive pulmonary disease, unspecified (ICD-10) Asthma ?J45.909 - Unspecified asthma, uncomplicated (ICD-10) High cholesterol ?E78.00 - Pure hypercholesterolemia, unspecified (ICD-10) HTN (hypertension) ?I10 - Essential (primary) hypertension (ICD-10) Surgical History History of appendectomy ?Z90.49 - Acquired absence of other specified parts of digestive tract (ICD-10) History of hysterectomy ?Z90.710 - Acquired absence of both cervix and uterus (ICD-10) History of neck surgery ?Z98.890 - Other specified postprocedural states (ICD-10) Hx of cholecystectomy ?Z90.49 - Acquired absence of other specified parts of digestive tract (ICD-10) History of lumbar laminectomy ?Z98.890 - Other specified postprocedural states (ICD-10) History of cardiac cath ?Z98.890 - Other specified postprocedural states (ICD-10) Social History Little interest or pleasure in doing things: not at all Feeling down, depressed, or hopeless: not at all Exam Narrative Exam Narrative: Nurses note and vital signs reviewed and patient is not hypoxic. General: The patient appears in no apparent distress. Patient is resting comfortably on cart. Skin: Warm, dry, no pallor noted. There is no rash noted. Head: Normocephalic, atraumatic Eye: Normal conjunctiva, no drainage Ears, Nose, Mouth, and Throat: oral mucosa is moist. Nares patent. Cardiovascular: Regular Rate and Rhythm Respiratory: Patient is in no distress, no accessory muscle use, lungs are clear to auscultation, no wheezing, rales or rhonchi Back: non-tender GI: Soft obese and nontender Musculoskeletal: The patient has no evidence of calf tenderness, symmetrical pulses noted bilaterally Neurological: A&O x4, normal speech Psychiatric: Cooperative Constitutional Vital Signs, click to edit/add: Last Vital Signs Temp 97.6 F 11/24/24 10:46 Pulse 74 11/24/24 12:31 Resp 13 11/24/24 12:31 BP 157/88 H 11/24/24 12:31 Pulse Ox 99 11/24/24 12:31 O2 Del Method Room Air 11/24/24 10:46 Course Vital Signs Vital signs: Vital Signs Temperature 97.6 F 11/24/24 10:46 Pulse Rate 87 11/24/24 10:46 Respiratory Rate 16 11/24/24 10:46 Blood Pressure 158/69 H 11/24/24 10:46 Pulse Oximetry 97 11/24/24 10:46 Oxygen Delivery Method Room Air 11/24/24 10:46 Temperature 97.6 F 11/24/24 10:46 Pulse Rate 74 11/24/24 12:31 Respiratory Rate 13 11/24/24 12:31 Blood Pressure 157/88 H 11/24/24 12:31 Pulse Oximetry 99 11/24/24 12:31 Oxygen Delivery Method Room Air 11/24/24 10:46 Medical Decision Making MDM Narrative Medical decision making narrative: The patient still has UTI and there are no culture results from several days ago. She is also having visual hallucinations. The rest of the workup including CT brain is negative. Blood cultures and urine culture pending and she is being admitted. She was given IV Rocephin here. Treatment diagnosis and disposition were discussed with the patient and her . Differential Diagnosis Differential Diagnosis: UTI, metabolic encephalopathy Lab Data Lab results reviewed: Yes I reviewed the patient's lab results Labs: Lab Results 11/24/24 11/24/24 11/24/24 Range/Units 10:52 10:54 11:00 WBC 7.1 (4.0-11.0) 10^3/uL RBC 3.73 L (4.20-5.40) 10^6/uL Hgb 11.1 L (12.0-16.0) g/dL Hct 34.9 L (36.0-48.0) % MCV 93.6 (81.0-99.0) fL MCH 29.8 (26.7-34.0) pg MCHC 31.8 (29.9-35.2) g/dL RDW 14.8 (11.0-15.0) % Plt Count 201 (150-450) 10^3/uL MPV 11.1 (9.5-13.5) fL Neut % (Auto) 70.0 (43.0-75.0) % Lymph % (Auto) 17.5 L (20.5-60.0) % [place] % (Auto) 9.7 (1.7-12.0) % Eos % (Auto) 2.0 (0.9-7.0) % Baso % (Auto) 0.4 (0.2-2.0) % Neut # (Auto) 5.0 (1.4-6.5) 10^3/uL Lymph # (Auto) 1.3 (1.2-3.8) 10^3/uL [place] # (Auto) 0.7 (0.3-0.8) 10^3/uL Eos # (Auto) 0.1 (0.0-0.7) 10^3/uL Baso # (Auto) 0.0 (0.0-0.1) 10^3/uL Abs Immat Gran (auto) 0.03 (0.00-0.03) 10^3/uL Imm/Tot Granulo (auto) 0.4 (0.0-0.5) % Sodium 144 (136-145) mmol/L Potassium 4.1 (3.5-5.1) mmol/L Chloride 107 (98-107) mmol/L Carbon Dioxide 25.5 (21.0-32.0) mmol/L Anion Gap 15.6 BUN 59.0 H (7.0-18.0) mg/dL Creatinine 2.35 H (0.55-1.02) mg/dL Est GFR ( Amer) 24 L (>=60 mL/min/1.73m^2) Est GFR (Non-Af Amer) 20 L (>=60 mL/min/1.73m^2) BUN/Creatinine Ratio 25.1 Glucose 256 H (74-106) mg/dL Calcium 9.4 (8.5-10.1) mg/dL Magnesium (1.8-2.4) mg/dL Total Bilirubin 0.4 (0.2-1.0) mg/dL Direct Bilirubin 0.1 (0.0-0.2) mg/dL AST 37 (15-37) U/L ALT 44 (14-59) U/L Alkaline Phosphatase 111 (46-116) U/L Troponin I High Sens 23.0 (4.0-51.3) pg/mL Total Protein 6.7 (6.4-8.2) g/dL Albumin 3.1 L (3.4-5.0) g/dL Globulin 3.6 g/dL Albumin/Globulin Ratio 0.9 Urine Color (YELLOW) Urine Clarity (CLEAR) Urine pH (5.0-9.0) Ur Specific [place] (1.005-1.025) Urine Protein (NEG/TRACE) mg/dL Urine Glucose (UA) (NEGATIVE) mg/dL Urine Ketones (NEGATIVE) mg/dL Urine Occult Blood (NEGATIVE) Urine Nitrite (NEGATIVE) Urine Bilirubin (NEGATIVE) Urine Urobilinogen (0.2-1.0) EU/dL Ur Leukocyte Esterase (NEGATIVE) Urine RBC (0-2) #/HPF Urine WBC (NONE SEEN) #/HPF Ur Squamous Epith Cells (NONE/RARE) #/LPF Urine Crystals (None Seen) #/HPF Urine Bacteria (NONE SEEN) #/HPF Urine Casts (NONE SEEN) #/LPF Urine Mucus (NONE SEEN) Urine Yeast (NONE SEEN) Ur Culture Indicated? Influenza Type A Ag Negative Influenza Type B Ag Negative SARS-CoV-2 Ag (CV2AG) Negative (NEGATIVE) POC Glucose 234 H (74-106) mg/dL 11/24/24 11/24/24 Range/Units 11:15 11:40 WBC (4.0-11.0) 10^3/uL RBC (4.20-5.40) 10^6/uL Hgb (12.0-16.0) g/dL Hct (36.0-48.0) % MCV (81.0-99.0) fL MCH (26.7-34.0) pg MCHC (29.9-35.2) g/dL RDW (11.0-15.0) % Plt Count (150-450) 10^3/uL MPV (9.5-13.5) fL Neut % (Auto) (43.0-75.0) % Lymph % (Auto) (20.5-60.0) % [place] % (Auto) (1.7-12.0) % Eos % (Auto) (0.9-7.0) % Baso % (Auto) (0.2-2.0) % Neut # (Auto) (1.4-6.5) 10^3/uL Lymph # (Auto) (1.2-3.8) 10^3/uL [place] # (Auto) (0.3-0.8) 10^3/uL Eos # (Auto) (0.0-0.7) 10^3/uL Baso # (Auto) (0.0-0.1) 10^3/uL Abs Immat Gran (auto) (0.00-0.03) 10^3/uL Imm/Tot Granulo (auto) (0.0-0.5) % Sodium (136-145) mmol/L Potassium (3.5-5.1) mmol/L Chloride (98-107) mmol/L Carbon Dioxide (21.0-32.0) mmol/L Anion Gap BUN (7.0-18.0) mg/dL Creatinine (0.55-1.02) mg/dL Est GFR ( Amer) (>=60 mL/min/1.73m^2) Est GFR (Non-Af Amer) (>=60 mL/min/1.73m^2) BUN/Creatinine Ratio Glucose (74-106) mg/dL Calcium (8.5-10.1) mg/dL Magnesium 1.8 (1.8-2.4) mg/dL Total Bilirubin (0.2-1.0) mg/dL Direct Bilirubin (0.0-0.2) mg/dL AST (15-37) U/L ALT (14-59) U/L Alkaline Phosphatase (46-116) U/L Troponin I High Sens (4.0-51.3) pg/mL Total Protein (6.4-8.2) g/dL Albumin (3.4-5.0) g/dL Globulin g/dL Albumin/Globulin Ratio Urine Color Lt. yellow (YELLOW) Urine Clarity Cloudy A (CLEAR) Urine pH 5.5 (5.0-9.0) Ur Specific [place] 1.015 (1.005-1.025) Urine Protein Trace (NEG/TRACE) mg/dL Urine Glucose (UA) Negative (NEGATIVE) mg/dL Urine Ketones Negative (NEGATIVE) mg/dL Urine Occult Blood Small A (NEGATIVE) Urine Nitrite Negative (NEGATIVE) Urine Bilirubin Negative (NEGATIVE) Urine Urobilinogen 0.2 (0.2-1.0) EU/dL Ur Leukocyte Esterase Moderate A (NEGATIVE) Urine RBC 0-2 (0-2) #/HPF Urine WBC 75-100 A (NONE SEEN) #/HPF Ur Squamous Epith Cells Few A (NONE/RARE) #/LPF Urine Crystals None seen (None Seen) #/HPF Urine Bacteria Small A (NONE SEEN) #/HPF Urine Casts None seen (NONE SEEN) #/LPF Urine Mucus Trace A (NONE SEEN) Urine Yeast Seen A (NONE SEEN) Ur Culture Indicated? Yes Influenza Type A Ag Influenza Type B Ag SARS-CoV-2 Ag (CV2AG) (NEGATIVE) POC Glucose (74-106) mg/dL Imaging Data Chest x-ray: Radiologist's impression: ITS Impressions Chest X-Ray 11/24/24 10:56 IMPRESSION: 1. Cardiac enlargement. 2. No infiltrates. Electronically authenticated by: KAREY OJEDA Date: 11/24/2024 11:[address] 11/24/24 12:18 IMPRESSION: No acute intracranial process is noted. Ventriculomegaly out of proportion to the sulci enlargement, may suggest normal pressure hydrocephalus in appropriate clinical setting. However, there is no significant interval change in size of ventricular system since 02/15/2024 and there is mild interval increase in size of the ventricular system since 01/25/2017. Electronically authenticated by: KERRY SAN Date: 11/24/2024 12:56 ECG Data Attestation: I personally reviewed and interpreted this ECG as follows: (EKG on my interpretation shows large amount of artifact) Discharge Plan Discharge Chief Complaint: Weakness Clinical Impression: Urinary tract infection, Visual hallucinations Patient Disposition: Admitted As Inpatient Time of Disposition Decision: 13:43 Condition: Fair
[2024-11-24 10:58] LABS: Glucometer 234 mg/dL (74-106)
--- OUTSIDE RECORDS SUMMARY | 2024-11-24 11:07 | XMS_ITS | CCD ---
Author Organization [facility] Care Team Providers Care Wheel Braider Name Role Phone ROBERTO PARHAMAB A Attending Unavailable MIGELTAROBERTO RAMIREZAB Dino Admitting Unavailable FURLONG, FERNIE Referring Unavailable FURLONG, FERNIE Primary Care [...] FERNIE Ricketts Primary Care Unavailable LAKSHMIPATHY ., PER Attending Marianela vailable LAKSHMIPATHY ., NARJAZMIN Admitting Marianela vailable STERN ., DR LUISA Page Attending Unavailable CAMPUZANO ., JONNY Consulting Unavailable FURLONG, DR FERNIE Ricketts Primary Care Unavailable STERN ., DR LUISA Page Admitting Unavailable TSERN ., DR LUISA Page Attending Unavailable CAMPUZANO [...] STERN ., DR LUISA Page Attending Unavailable JUSTEN .JONNY Consulting Unavailable FURLONG, DR FERNIE Ricketts Primary Care Unavailable STERN ., DR LUISA Page Admitting Unavailable Furlong DOFernie Primary Care Provider MOE PARHAM Attending Unavailable DARELL SYLVESTER Attending Unavailable Furlong, DO Enciso Primary Care Provider MD Gia Munoz Attending Provider [phone] Gia Munoz Attending Unavailable TammyGia Admitting Unavailable Furlong, Fernie Primary Care Unavailable FURLONG, FERNIE Ricketts Attending Unavailable FURLONG, FERNIE G Referring Unavailable FURLONG, FERNIE G Primary Care Unavailable FURLONG, FERNIE Ricketts Attending Unavailable FURLONG, FERNIE G Referring Unavailable FURLONG, FERNIE G Primary Care Unavailable FURLONG, FERNIE Ricketts Attending Unavailable FURLONG, FERNIE G Referring Unavailable FURLONG, FERNIE G Primary Care Unavailable FURLONG, FERNIE G Referring Unavailable FURLONG, FERNIE Ricketts Primary Care Unavailable FURLONG, FERNIE G Referring Unavailable FURLONG, FERNIE G Primary Care Unavailable FURLONG, FERNIE G Referring Unavailable FURLONG, FERNIE G Primary Care Unavailable FURLONG, FERNIE G Referring Unavailable FURLONG, FERNIE G Primary Care Unavailable Kirsten RAND, Christian Rodríguez Attending Unavailable Kirsten RAND, Andgolden Rodríguez Attending Unavailable Kirsten RAND, Andgolden Rodríguez Attending Unavailable Kirsten RAND, Andgolden Rodríguez Attending Unavailable Furlong DOFernie Primary Care Provider [phone] Gaetano Viera DO Attending Provider Unavailab le FURLONG, FERNIE Ricketts Referring Unavailable FURLONG, FERNIE G Primary Care Unavailable GIA MUNOZ Referring Unavailable FURLONG, FERNIE G Primary Care Unavailable FURLONG, FERNIE Ricketts Referring Unavailable FURLONG, FERNIE Ricketts Primary Care Unavailable FURLONG, FERNIE G Referring Unavailable FURLONG, FERNIE Ricketts Primary Care Unavailable FURLONG, FERNIE Ricketts Referring Unavailable FURLONG, FERNIE Ricketts Primary Care Unavailable TAMMY, GIA Referring Unavailable FURLONG, FERNIE Ricketts Primary Care Unavailable FURLONG, FERNIE Ricketts Referring Unavailable FURLONG, FERNIE Ricketts Primary Care Unavailable TAMMY, GIA Referring Unavailable FURLONG, FERNIE Ricketts Primary Care Unavailable FURLONG, FERNIE Jamarcus Referring Unavailable FURLONG, FERNIE Ricketts Primary Care [...] FURLONG, FERNIE Ricketts Referring Unavailable FURLONG, FERNIE Jamarcus Primary Care Unavailable TAMMY, GIA Referring Unavailable FURLONG, FERNIE Jamarcus Primary Care Unavailable FURLONG, FERNIE Jamarcus Referring Unavailable FURLONG, FERNIE Jamarcus Primary Care Unavailable TAMMY, GIA Referring Unavailable FURLONG, FERNIE Jamarcus Primary Care Unavailable FURLONG, FERNIE Jamarcus Referring Unavailable FURLONG, FERNIE Jamarcus Primary Care Unavailable TAMMY, GIA Referring Unavailable FURLONG, FERNIE Jamarcus Primary Care Unavailable FURLONG, FERNIE Jamarcus Referring Unavailable FURLONG, FERNIE Jamarcus Primary Care Unavailable FURLONG, FERNIE Jamarcus Referring Unavailable FURLONG, FERNIE Jamarcus Primary Care Unavailable FURLONG, FERNIE Jamarcus Referring Unavailable FURLONG, FERNIE Jamarcus Primary Care Unavailable TAMMY, GIA Referring Unavailable FURLONG, FERNIE Jamarcus Primary Care Unavailable FURLONG, FERNIE Jamarcus Referring Unavailable FURLONG, FERNIE Jamarcus Primary Care Unavailable TAMMY, GIA Referring Unavailable FURLONG, FERNIE Jaamrcus Primary Care Unavailable FURLONG, FERNIE Jamarcus Referring Unavailable FURLONG, FERNIE Jamarcus Primary Care Unavailable FURLONG, FERNIE Ricketts Referring [...] FURLONG, FERNIE Ricketts Primary Care Unavailable TAMMY, IGA Referring Unavailable FURLONG, FERNIE Ricketts Primary Care [...] Unavailable FURLONG, FERNIE G Primary Care Unavailable DANIEL GUERRERO Admitting Unavailable DANIEL GUERRERO Attending Unavailable FURLONG, FERNIE G Referring Unavailable [...] Adhesive Tape Substance Allergy 04-24-20 13 [facility] Povidone-Iodine (1 source) Povidone-Iodine Drug Allergy 04-24-20 13 [facility] Sulfonamides (antibiotic) (1 source) Sulfonamides (Antibiotic) Drug Allergy 04-24-20 13 [facility] Tetracyclines (antibiotic) (1 source) Tetracyclines Drug Allergy 04-24-20 13 [facility] (20 sources) Povidone-Iodine; Translations: [POVIDONE-IODINE] Drug Allergy 11-25-19 15 rash [facility]back Other (10 sources) Sulfonamides (Antibiotic) Propensity to adverse reactions thinkingphones [facility] Other (13 sources) Tetracycline Drug Allergy 11-16-19 24 [facility] (12 sources) Adhesive 1 x6yd Drug allergy 11-08-20 23 [facility] (12 sources) Amlodipine & Diet Manage Prod Drug allergy 11-08-20 23 [facility] (2 sources) Povidone-Iodine; Translations: [Betadine] Drug Allergy 04-23-20 13 rash [facility] (20 sources) Contrast media; Translations: [RED DYE] Drug allergy (disorder) 05-04-20 17 Rash [facility] (4 sources) Desonide Drug Allergy 04-23-20 13 Rash [facility] (1 source) Sulfonamides (Antibiotic) Drug allergy (disorder) 04-23-20 13 [facility] (1 source) Tetracycline Drug Allergy 04-23-20 13 [facility] (20 sources) Adhesive agent; Translations: [ADHESIVE] Propensity to adverse reactions to drug 11-25-19 15 Other (See Comments), [facility] (20 sources) dilTIAZem; Translations: [DILTIAZEM] Drug Allergy 09-01-20 [facility] Work Phone: (20 sources) Linagliptin; Translations: [LINAGLIPTIN] Drug Allergy 09-01-20 [facility] (20 sources) Sulfonamides (Antibiotic); Translations: [SULFA (SULFONAMIDE ANTIBIOTICS)] Propensity to adverse reactions to drug 11-25-19 15 [facility] (20 sources) Tetracycline (class of antibiotic); Translations: [TETRACYCLINES] Propensity to adverse reactions to drug 11-25-19 15 [facility] (20 sources) Adhesive Tape-Silicones; Translations: [ADHESIVE TAPE-SILICONES] Propensity to adverse reactions to drug 05-04-20 [facility] Work Phone: (1 source) Adhesive Tape Drug allergy (disorder) 11-16-19 [facility] (1 source) Contrast media Drug allergy (disorder) 11-16-19 [facility] (1 source) Povidone-Iodine Drug Allergy 11-16-19 [facility] (1 source) Sulfonamides (Antibiotic) Drug allergy (disorder) 11-16-19 [facility] (1 source) Tetracycline Drug Allergy 11-16-19 [facility] (20 sources) Sulfa Dyne; Translations: [SULFA DYNE] Propensity to adverse reactions to drug 09-14-20 [facility] Medications Current Medications Medication Drug Class(es) Dates Sig (Normalized) Sig (Original) acetaminophen 500 mg oral capsule (20 sources) Start: 05-01-2024 take 2 capsules by mouth once Acetaminophen 500 mg capsule Active 1000 MG PO Once April 30, 2024 11:00pm Start: 05-01-2024 take 1000 mg by mouth once Ortega taminophen Active 1000 MG PO Once May 01, 2024 12:00am take 1 tablet by willa th once daily, then take 2 tablets by mouth once daily in the morning acetaminophen (TYLENOL EXTRA STRENGTH) 500 mg tablet Take 1 tablet (500 mg total) by mouth once daily. Takes 2 pills every morning Active take 1-2 capsules by mouth every six hours as needed Acetaminophen 500 mg 1-2 capsule as needed Orally every 6 hrs Active acetaminophen 325 mg / HYDROcodone bitartrate 5 mg oral tablet (3 sources) Opioid Agonist take 1 tablet by mouth every twelve hours HYDROcodone-Acetaminophen 5-325 MG 1 tablet as needed Orally TWICE A DAY Active [id number] actuat albuterol 0.09 mg/actuat metered dose inhaler (20 sources) beta2-Adrener gic Agonist Start: 2023 take 1 puff(s) by inhalation every six hours Albuterol Sulfate (Proair Hfa) 90 mcg/actuation HFA aerosol inhaler Active 2 PUFF INHALATION Every 6 hours April 30, 2024 11:00pm Start: 10-18-2023 take 2 puff(s) by in halation every six hours as needed for wheezing [...] oral tablet (20 sources) Xanthine Oxidase Inhibitor Start: 06-16-2024 Allopurinol 100 mg tablet Active 0 .ROUTE .COMPLEX 180 June 16, 2024 8:24am TAKE 2 TABLETS ONCE DAILY Start: 05-01-2024 End: 06-16-2024 take 2 tablets by mouth once daily Allopurinol 100 mg tablet Discontinued 200 MG PO Daily April 30, 2024 11:00pm June 16, 2024 8:25am Start: 05-01-2024 take 200 mg by mouth once bella y Allopurinol Active 200 MG PO Daily May 01, 2024 12:00am take 1 tablet by willa th in the morning allopurinol (ZYLOPRIM) 100 mg tablet Take 1 tablet (100 mg total) by mouth in the morning. Active take 2 tablets by mo uth every twenty-four hours Allopurinol 100 MG 2 tablet Orally Once a day for 90 days Active ASA 81 mg (10 sources) take 1 tablet by mouth once daily ASA 81 mg 1 Tablet Oral daily Active aspirin 81 mg delayed release oral tablet (20 sources) Platelet Aggregation Inhibitor, Nonsteroidal Anti-inflammatory Drug take 1 tablet by mouth in the morning aspirin 81 mg Take 1 tablet (81 mg total) by mouth in the morning. 0 Active atorvastatin 80 mg oral tablet (20 sources) HMG-CoA Reductase Inhibitor Start: 04-29-20 take 1 tablet by mouth in the morning atorvastatin (LIPITOR) 80 mg tablet Take 1 tablet (80 mg total) by mouth in the morning. 90 tablet 3 04/29/2024 Active Start: 05-16-2023 atorvastatin ( LIPITOR) 80 mg tablet TAKE 1 TABLET DAILY 90 tablet 3 05/16/2023 Active baclofen 10 mg oral tablet (20 sources) gamma-Aminobutyric Acid-ergic Agonist Start: 05-01-2024 baclofen (LIORESAL) 10 mg tablet TAKE 1 TABLET NIGHTLY 90 tablet 3 10/14/2024 Active Start: 11-26-2023 take 1 tablet by willa th once daily baclofen (LIORESAL) 10 mg tablet Take 1 tablet (10 mg total) by mouth nightly. 90 tablet 3 11/26/2023 Active take 1 tablet by willa th in the morning baclofen (LIORESAL) 10 mg tablet Take 1 tablet (10 mg total) by mouth in the morning. 0 Active biotin 10 mg oral tablet (20 sources) take 1 tablet by willa th once daily biotin 10 mg tablet Take 10 mg by mouth once daily. Active take 1 capsule by mo ut every twenty-four hours Biotin Maximum Strength 5000 MCG 1 capsule Orally Once a day Active take 1 capsule by mo uth every twenty-four hours Biotin Maximum Strength 5000 MCG 1 capsule Orally Once a day Active blood-glucose meter (TRUE METRIX GLUCOSE METER) misc (2 sources) Start: 11-18-2024 blood-glucose meter (TRUE METRIX GLUCOSE METER) [facility] 1 Unit by miscellaneous route in the morning and 1 Unit before bedtime. 1 each 11/18/2024 Active Breo Ellipta 200-25 MCG/INH (3 sources) take 1 puff(s) by inhalation once daily Breo Ellipta 200-25 MCG/INH 1 puff Inhalation Once a day Active canagliflozin 100 mg oral tablet (20 sources) Sodium-Glucose Cotransporter 2 Inhibitor Start: 12-07-2023 End: 12-11-2023 take 1 tablet by mouth in the morning canagliflozin (INVOKANA) 100 mg tablet Take 1 tablet (100 mg total) by mouth in the morning. 90 tablet 1 12/11/2023 Active carvedilol 6.25 mg oral tablet (20 sources) alpha-Adrenergic Micki, beta-Adrenergic Micki Start: 04-09-2024 carvediloL (COREG) 6.25 mg tablet take 1 tablet twice a day 180 tablet 3 04/09/2024 Active Start: 04-16-2023 carvediloL (CO REG) 6.25 mg tablet TAKE 1 TABLET TWICE A DAY 180 tablet 3 04/16/2023 Active chondroitin sulfates 400 mg / glucosamine hydrochloride 500 mg oral tablet (20 sources) take 1 tablet by mouth once daily glucosamine-chondroitin 500-400 mg tablet Take 1 tablet by mouth once daily. Active diaper,brief,adult,di sposable (ALWAYS DISCREET) misc (20 sources) Start: 2023 diaper,brief,adult,disposabl e (ALWAYS DISCREET) [facility] Indications: Urinary incontinence, unspecified type 1 Unit by miscellaneous route every 2 (two) hours as needed (incontinence). 360 each 5 02/25/2024 Active 0.5 ml dulaglutide 1.5 mg/ml auto-injector (1 source) GLP-1 Receptor Agonist Trulicity 0.75 MG/0. 5ML as directed Subcutaneous ONCE A WEEK Active estrogens, conjugated (long-term) 0.625 mg/ml vaginal cream (5 sources) Estrogen conjugated estro gens (PREMARIN) vaginal cream Insert 0.5 g into the vagina nightly. 0 Active famotidine 20 mg oral tablet (20 sources) Histamine-2 Receptor Antagonist Start: 2023 take 1 tablet by mouth in the morning, then take 1 tablet by mouth at bedtime famotidine (PEPCID) 20 mg tablet Take 1 tablet (20 mg total) by mouth in the morning and 1 tablet (20 mg total) before bedtime. 180 tablet 1 08/05/2024 Active 15 ml ferric carboxymaltose 50 mg/ml injection (3 sources) Start: 2021 Injectafer 750 MG/15ML as directed Intravenous Nov, Active ferrous sulfate 325 mg delayed release oral tablet (20 sources) Start: 2023 take 1 tablet by mouth every other day ferrous sulfate 325 (65 FE) mg EC tablet Take 1 tablet (325 mg total) by mouth every other day. 05/01/2024 Active Start: 05-01-2024 Ferrous Sulfat e 325 mg (65 mg iron) tablet Active 325 MG PO Every 48 hours 45 April 30, 2024 11:00pm Fish,Bora,Flax Oils-Om3,6,9n o1 ([place] 3-6-9) 1,200 mg capsule (2 sources) Start: 05-01-2024 Fish,Bora,Flax Oils-Om3,6,9no1 ([place] 3-6-9) 1,200 mg capsule Active CAP PO April 30, 2024 11:00pm Start: 05-01-2024 Fish,Bora,Flax Oils-Om3,6,9no1 ([place] 3-6-9) 1,200 mg capsule Active CAP PO May 01, 2024 12:00am 30 actuat fluticasone furoate 0.2 mg/actuat / vilanterol 0.025 mg/actuat dry powder inhaler (20 sources) Corticosteroid, beta2-Adrenergic Agonist Start: 06-27-2024 fluticasone furoate-vilanteroL (BREO ELLIPTA) 200-25 mcg/dose blister with device USE 1 INHALATION DAILY 90 each 3 06/27/2024 Active Start: 05-01-2024 Fluticasone Fu roate-Vilanterol (Breo Ellipta) 200-25 mcg/dose blister with device Active 1 INH INHALATION Daily April 30, 2024 11:00pm Start: 05-01-2024 Fluticasone Fu roate-Vilanterol (Breo Ellipta) 200-25 mcg/dose blister with device Active 1 INH INHALATION Daily May 01, 2024 12:00am Start: 07-03-2023 fluticasone fu roate-vilanteroL (BREO ELLIPTA) 200-25 mcg/dose blister with device USE 1 INHALATION DAILY 3 each 3 07/03/2023 Active take 1 puff(s) by in halation once daily Breo Ellipta 200-25 MCG/INH 1 puff Inhalation Once a day Active furosemide 40 mg oral tablet (20 sources) Loop Diuretic Start: 05-01-2024 take 2 tablets by mouth twice daily Furosemide 40 mg tablet Active 80 MG PO Twice daily April 30, 2024 11:00pm Start: 05-01-2024 take 80 mg by mouth twice bella y Furosemide Active 80 MG PO Twice daily May 01, 2024 12:00am glucosamine sulfate 500 mg oral tablet (20 sources) Start: 05-01-2024 take 1 tablet by mouth in the morning glucosamine sulfate 500 mg tablet Take 1 tablet (500 mg total) by mouth in the morning. 05/01/2024 Active Glucosamine Chond Triple/Vit D - (10 [...] pen injector (20 sources) Insulin Analog Start: 05-01-2024 Insulin Glargi ne (Lantus Solostar U-100 Insulin) 100 unit/mL (3 mL) insulin pen Active 48 UNIT SUBCUT Every evening April 30, 2024 11:00pm Start: 12-05-2023 insulin glargi ne (LANTUS SOLOSTAR [...] disease, with long-term current use of insulin ([facility]) Inject 46 Units under the skin in [...] UNITS Subcutaneous BEFORE LUNCH AND SUPPER Active Insulin Lispro (Humalog U-100 Insulin) 100 unit/mL solution (2 sources) Start: 05-01-2024 inject 6 [IU] by subcutaneous injection twice daily Insulin Lispro (Humalog U-100 Insulin) 100 unit/mL solution Active 6 UNIT SUBCUT .twice a day April 30, 2024 11:00pm Start: 05-01-2024 inject 6 [IU] by sub cutaneous injection twice daily Insulin Lispro (Humalog U-100 Insulin) 100 unit/mL solution Active 6 UNIT SUBCUT .twice a day May 01, 2024 12:00am levocetirizine dihydrochloride 5 mg oral tablet (17 sources) Histamine-1 Receptor Antagonist Start: 08-28-2024 take 1 tablet by mouth once daily levocetirizine (XYZAL) 5 mg tablet Take 1 tablet (5 mg total) by mouth nightly. 90 tablet 3 08/28/2024 Active loratadine 10 mg oral tablet (20 sources) Start: 08-25-2024 take 1 tablet by mouth once daily as needed loratadine (CLARITIN) 10 mg tablet Take 1 tablet (10 mg total) by mouth daily as needed for allergies. 30 tablet 1 08/25/2024 Active Start: 05-27-2024 End: 08-22-2024 take 1 tablet by mouth once daily as needed loratadine (CLARITIN) 10 mg tablet Take 1 tablet (10 mg total) by mouth daily as needed for allergies. 30 tablet 1 05/27/2024 08/22/2024 Discontinued (Reorder) magnesium oxide 400 mg oral tablet (20 sources) Start: 07-20-2022 take 1 tablet by mouth every twenty-four hours Magnesium Oxide 400 MG 1 tab(s) Orally Once a day for 90 day(s) Jul, Active metoclopramide 10 mg oral tablet (20 sources) Dopamine-2 Receptor Antagonist Start: 05-01-2024 take 1 tablet by mouth once Metoclopramide Hcl (Reglan) 10 mg tablet Active 10 MG PO Once April 30, 2024 11:00pm Start: 11-20-2022 metoclopramide (REGLAN) 10 mg tablet Take 1 tablet (10 mg total) by mouth in the morning and 1 tablet (10 mg total) at noon and 1 tablet (10 mg total) in the evening and 1 tablet (10 mg total) before bedtime. 360 tablet 1 11/20/2022 Active take 1 tablet by willa th every twelve hours Reglan 10 MG 1 tablet before meals Orally Twice a day Active metroNIDAZOLE 0.01 mg/mg topical gel (5 sources) Nitroimidazole Antimicrobial Start: 05-22-2023 metroNIDAZOLE (MetrogeL) 1 % gel Indications: Rosacea Apply 1 Application topically in the morning. 45 g 1 05/22/2023 Active montelukast 10 mg oral tablet (20 sources) Leukotriene Receptor Antagonist Start: 03-31-2024 montelukast (SINGULAIR) 10 mg tablet take 1 tablet daily 90 tablet 3 03/31/2024 Active Start: 04-04-2023 montelukast (S INGULAIR) 10 mg tablet TAKE 1 TABLET DAILY 90 tablet 3 04/04/2023 Active Multi For Her 50+ - (10 sources) Multi For Her 50 + - Orally Active znoxrejz-yvzp-BO-calcium &mi ns (THERAGRAN-M) 9 mg iron-400 mcg tablet (20 sources) rxxinnhd-srov-BL -calcium &mins (THERAGRAN-M) 9 mg iron-400 mcg tablet Take 1 tablet by mouth in the morning. Active gnhiesvw-tmmc-XA -calcium &mins (THERAGRAN-M) 9 mg iron-400 mcg tablet Take 1 tablet by mouth in the morning. 0 Active Multivitamin (Daily Multi-Vitamin) tablet (2 sources) Start: 05-01-2024 take 1 tablet by mouth once daily Multivitamin (Daily Multi-Vitamin) tablet Active 1 TAB PO Daily April 30, 2024 11:00pm Start: 05-01-2024 take 1 tablet by willa th once daily Multivitamin (Daily Multi-Vitamin) tablet Active 1 TAB PO Daily May 01, 2024 12:00am [place] 3-6-9 Complex - (10 sources) [place] 3-6-9 Comp fawad - Orally Active omega-3 fatty acids-fish oil 300-1,000 mg capsule (20 sources) take 2 capsules by m outh in the morning omega-3 fatty acids-fish oil 300-1,000 mg capsule Take 2 capsules (2 g total) by mouth in the morning. Active take 2 capsules by mouth in the morning omega-3 fatty acids-fish oil 300-1,000 mg capsule Take 2 capsules (2 g total) by mouth in the morning. 0 Active omeprazole 20 mg delayed release oral capsule (20 sources) Proton Pump Inhibitor Start: 05-01-2024 take 1 capsule by mouth once daily Omeprazole 20 mg capsule,delayed release(DR/EC) Active 20 MG PO Daily April 30, 2024 11:00pm Start: 05-07-2023 omeprazole (Pr iLOSEC) 20 mg capsule TAKE 1 CAPSULE TWICE A DAY 180 capsule 3 05/07/2023 Active take 1 capsule by mo ut every twenty-four hours Omeprazole 20 MG 1 cap(s) Orally Once a day Active take 1 capsule by mo ut every twelve hours Omeprazole 20 MG 1 cap(s) Orally bid Active pregabalin 75 mg oral capsule (20 sources) Start: 05-01-2024 take 1 capsule by mouth once daily Pregabalin 75 mg capsule Active 75 MG PO Daily April 30, 2024 11:00pm take 1 capsule by mouth every tw [...] (20 sources) Angiotensin Converting Enzyme Inhibitor Start: 11-17-19 End: 11-03-20 ramipriL (ALTACE) 10 mg capsule TAKE 1 CAPSULE DAILY 90 capsule 3 11/03/2024 Active 1000 ml sodium chloride 9 mg/ml injection (17 sources) Start: 11-04-20 take 25 mL intravenously every hour as needed 25 mL/hr, intravenous, Continuous PRN, When mainline IV needed., Starting on Sun11/04/24 at 0925, Match IVF to base solution of product being administered to ensure compatibility. Start: 10-07-2024 End: 10-07-2024 take 25 mL intravenously every hour as needed 25 mL/hr, intravenous, Continuous PRN, When mainline IV needed., Starting on Sun10/07/24 at 0927, Match IVF to base solution of product being administered to ensure compatibility. Start: 10-01-2024 End: 10-01-2024 take 25 mL intravenously every hour as needed 25 mL/hr, intravenous, Continuous PRN, When mainline IV needed., Starting on Sun10/01/24 at 0917, Match IVF to base solution of product being administered to ensure compatibility. Start: 08-27-2024 take 25 mL intraveno usly every hour as needed 25 mL/hr, intravenous, Continuous PRN, When mainline IV needed., Starting on Sun08/27/24 at 0922, Match IVF to base solution of product being administered to ensure compatibility. Start: 08-13-2024 End: 08-13-2024 take 25 mL intravenously every hour as needed 25 mL/hr, intravenous, Continuous PRN, When mainline IV needed., Starting on Sun08/13/24 at 0914, Match IVF to base solution of product being administered to ensure compatibility. Start: 02-13-2024 End: 02-13-2024 sodium chloride 0.9 % infusi on Start: 02-06-2024 End: 02-06-2024 sodium chloride 0.9 % infusi on Start: 01-30-2024 End: 01-30-2024 sodium chloride 0.9 [...] 11-21-2023 sodium chloride 0.9 % infusi on theophylline 400 mg extended release oral tablet (20 sources) Methylxanthine Start: 03-17-2024 End: 09-11-2024 theophylline (UNIPHYL) 400 mg 24 hr tablet TAKE 1 TABLET DAILY 90 tablet 3 09/11/2024 Active Start: 03-19-2023 theophylline ( UNIPHYL) 400 mg 24 hr tablet TAKE 1 TABLET DAILY 90 tablet 3 03/19/2023 Active 24 hr traMADol hydrochloride 100 mg extended release oral tablet (20 sources) Opioid Agonist Start: 05-01-2024 take 1 tablet by mouth once daily as needed Tramadol 100 mg tablet extended release 24 hr Active 100 MG PO Daily as needed April 30, 2024 11:00pm take 1 tablet by willa th every twenty-four hours in the morning traMADol ER (ULTRAM-ER) 100 mg 24 hr tablet Take 1 tablet (100 mg total) by mouth in the morning. Active take 1 tablet by willa th every twenty-four hours traMADol HCl ER 100 MG 1 tablet Orally Once a day Active traMADol HCl 50 MG 1 Tablet Orally 1 TAB Q 6 HOURS PRN Active Completed/Discontinued Medications Medication Drug Class(es) Dates Sig (Normalized) Sig (Original) 50 ml magnesium sulfate 40 mg/ml injection (19 sources) Start: 11-04-2024 End: 11-04-2024 2,000 mg, intravenous, at 25 mL/hr, Administer over 120 Minutes, Once, On Sun11/04/24 at 0930, For 1 dose, For magnesium level greater than 1.5 mg/dL . Correct magnesium prior to potassium. Start: 10-07-2024 End: 10-07-2024 2,000 mg, intravenous, at 25 mL/hr, Administer over 120 Minutes, Once, On Sun10/07/24 at 0930, For 1 dose, For magnesium level greater than 1.5 mg/dL . Correct magnesium prior to potassium. Start: 10-01-2024 End: 10-01-2024 2,000 mg, intravenous, at 25 mL/hr, Administer over 120 Minutes, Once, On Sun10/01/24 at 0930, For 1 dose, For magnesium level greater than 1.5 mg/dL . Correct magnesium prior to potassium. Start: 09-10-2024 End: 09-10-2024 2,000 mg, intravenous, at 25 mL/hr, Administer over 120 Minutes, Once, On Sun09/10/24 at 0930, For 1 dose, For magnesium level greater than 1.5 mg/dL . Correct magnesium prior to potassium. Start: 08-27-2024 End: 08-27-2024 2,000 mg, intravenous, at 25 mL/hr, Administer over 120 Minutes, Once, On Sun08/27/24 at 0930, For 1 dose, For magnesium level greater than 1.5 mg/dL . Correct magnesium prior to potassium. Start: 08-20-2024 End: 08-20-2024 2,000 mg, intravenous, at 25 mL/hr, Administer over 120 Minutes, Once, On Sun08/20/24 at 0915, For 1 dose, For magnesium level greater than 1.5 mg/dL . Correct magnesium prior to potassium. Start: 08-13-2024 End: 08-13-2024 2,000 mg, intravenous, at 25 mL/hr, Administer over 120 Minutes, Once, On Sun08/13/24 at 0915, For 1 dose, For magnesium level greater than 1.5 mg/dL . Correct magnesium prior to potassium. Start: 02-13-2024 End: 02-13-2024 magnesium sulfate IVPB 2000 mg/50 mL in iso-osmotic water (40 mg/mL premix) Start: 02-06-2024 End: 02-06-2024 magnesium sulfate IVPB 2000 mg/50 mL in iso-osmotic water (40 mg/mL premix) Start: 01-30-2024 End: 01-30-2024 magnesium sulfate IVPB [...] mL in iso-osmotic water (40 mg/mL premix) Problems Active Problems Problem Classification Problem Date Documented Date Episodic/Chronic Asthma (20 sources) Asthma; Translations: [Unspecified asthma, uncomplicated] Onset: 2 09-01-2022 Chronic Cataract (20 sources) Bilateral cataracts; Translations: [Unspecified cataract] Onset: 2 09-01-2022 Chronic Chronic kidney disease (20 sources) Chronic kidney disease stage 3; Translations: [Chronic kidney disease, stage 3 (moderate)] Onset: 8 Resolved: 2 Chronic Chronic kidney disease (4 sources) Chronic kidney disease; Translations: [Chronic kidney disease, stage 3b] Onset: 4 Chronic obstructive pulmonary disease and bronchiectasis (20 sources) Chronic obstructive lung disease; Translations: [Chronic obstructive pulmonary disease, unspecified] Onset: 2 09-01-2022 Chronic Coronary atherosclerosis and other heart disease (20 sources) Coronary atherosclerosis; Translations: [Atherosclerotic heart disease of minto coronary artery without angina pectoris] Onset: 2 11-14-2022 Chronic Deficiency and other anemia (20 sources) Anemia of renal disease; Translations: [Anemia in chronic kidney disease] Onset: 8 05-01-2024 Chronic Deficiency and other anemia (7 sources) Anemia in chronic kidney disease; Translations: [ANEMIA IN CHRONIC KIDNEY DISEASE] Onset: 2 Resolved: 2 Chronic Diabetes mellitus with complications (20 sources) Type 2 diabetes mellitus; Translations: [Type 2 diabetes mellitus with diabetic chronic kidney disease] Onset: 2 Resolved: 2 Chronic Disorders of lipid metabolism (20 sources) Mixed hyperlipidemia; Translations: [Hyperlipidemia] Onset: 2 09-01-2022 Chronic Esophageal disorders (20 sources) Ross's esophagus; 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] Onset: 7 05-04-2017 Chronic Essential hypertension (20 sources) Essential (primary) hypertension; Translations: [Essential hypertension] Onset: 2 09-01-2022 Chronic Genitourinary symptoms and ill-defined conditions (1 source) Unspecified urinary incontinence; Translations: [Unspecified urinary incontinence] Onset: 4 Chronic Hypertension with complications and secondary hypertension (20 sources) Hypertensive renal disease; Translations: [Hypertensive chronic kidney disease with stage 1 through stage 4 chronic kidney disease, or unspecified chronic kidney disease] Onset: 1 Resolved: 2 Chronic Osteoarthritis (20 sources) Osteoarthritis of knee; Translations: [Osteoarthritis of knee, unspecified] Onset: 7 11-14-2022 Chronic Other and unspecified benign neoplasm (1 source) Benign neoplasm of stomach; Translations: [Benign neoplasm of stomach] Onset: 4 Episodic Other diseases of kidney and ureters (20 sources) Secondary hyperparathyroidism; Translations: [Secondary hyperparathyroidism of renal origin] Onset: 4 05-01-2024 Chronic Other diseases of kidney and ureters (8 sources) Secondary hyperparathyroidism of renal origin; Translations: [Secondary hyperparathyroidism (of renal origin)] Onset: 2 Resolved: 2 Chronic Other eye disorders (20 sources) Posterior vitreous detachment; Translations: [Vitreous degeneration, unspecified eye] Onset: 3 07-24-2023 Chronic Other hereditary and degenerative nervous system conditions (20 sources) Essential tremor; Translations: [Essential tremor] Onset: 8 09-01-2022 Chronic Other nervous system disorders (1 source) Other chronic pain; Translations: [OTHER CHRONIC PAIN] Onset: 2 Chronic Other nervous system disorders (2 sources) Paresthesia of right lower limb; Translations: [Paresthesia of skin] 09-04-2024 Episodic Other nutritional; endocrine; and metabolic disorders (20 sources) Hypomagnesemia; Translations: [Hypomagnesemia] Onset: 4 11-19-2023 Chronic Other nutritional; endocrine; and metabolic disorders (4 sources) Hypomagnesemia; Translations: [Disorders of magnesium metabolism] Onset: 4 Chronic Other nutritional; endocrine; and metabolic disorders (1 source) Obesity, unspecified; Translations: [OBESITY UNSPECIFIED] Onset: 2 Chronic Other nutritional; endocrine; and metabolic disorders (20 sources) Morbid obesity; Translations: [Morbid (severe) obesity due to excess calories] Onset: 3 11-14-2022 Chronic Other nutritional; endocrine; and metabolic disorders (10 sources) H/O: metabolic disorder; Translations: [Personal history of other endocrine, nutritional and metabolic disease] Episodic Other upper respiratory disease (12 sources) Perennial allergic rhinitis; Translations: [Other allergic rhinitis] Onset: 2 09-27-2024 Chronic Residual codes; unclassified (20 sources) Obstructive sleep apnea syndrome; Translations: [Obstructive [...] PAIN, UNSPECIFIED] Onset: 2 Unclassified (1 source) Face to Face for incont supplies Onset: 4 Unclassified (1 source) Outpatient Infusion Onset: 4 Past or Other Problems Problem Classification Problem Date Documented Date Episodic/Chronic Allergic reactions (20 sources) Environmental allergy; Translations: [Other allergy status, other than to drugs and biological substances] Onset: 09-01-2022 09-01-2022 Episodic Biliary tract disease (20 sources) Disorder of gallbladder; Translations: [Disease of gallbladder, unspecified] Onset: 09-01-2022 09-01-2022 Episodic Fluid and electrolyte disorders (20 sources) Drug-induced hyperkalemia; Translations: [Hyperkalemia] Onset: 12-13-2017 09-01-2022 Episodic Gastritis and duodenitis (20 sources) Gastroduodenitis; Translations: [Gastroduodenitis, unspecified, without bleeding] Onset: 05-09-2017 05-09-2017 Episodic Genitourinary symptoms and ill-defined conditions (20 sources) Microalbuminuria; Translations: [Proteinuria, unspecified] Onset: 10-16-2016 09-01-2022 Episodic Mood disorders (20 sources) Mood disorders Onset: 10-18-2023 Resolved: 05-27-2024 10-18-2023 Neoplasms of unspecified nature or uncertain behavior (20 sources) Neoplasm of uncertain behavior of skin of finger; Translations: [Neoplasm of uncertain behavior of skin] Onset: 09-01-2022 09-01-2022 Episodic Other aftercare (3 sources) 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; 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] Onset: 11-11-2022 Episodic Other and unspecified benign neoplasm (20 sources) Gastric polyp; Translations: [Polyp of stomach and duodenum] Onset: 05-09-2017 05-09-2017 Episodic Other connective tissue disease (1 source) Muscle wasting and atrophy, not elsewhere classified, unspecified site; Translations: [MUSCLE WASTING ATROPHY NEC UNS SITE] Onset: 04-27-2022 Episodic Other lower respiratory disease (20 sources) Disorder of lung; Translations: [Other disorders of lung] Onset: 04-24-2013 11-14-2022 Episodic Other lower respiratory disease (20 sources) Dyspnea; Translations: [Dyspnea, unspecified] Onset: 04-24-2013 11-14-2022 Episodic Other nervous system disorders (20 sources) Paresthesia; Translations: [Paresthesia of skin] Onset: 09-01-2022 09-01-2022 Episodic Other nervous system disorders (1 source) Ataxia, unspecified; Translations: [Ataxia, unspecified] Onset: 02-25-2024 Episodic Other nutritional; endocrine; and metabolic disorders (8 sources) 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 inflammatory arthritis and tophaceous disease; Translations: [Other abnormal blood chemistry] Onset: 12-27-2021 Resolved: 07-20-2022 Episodic Other nutritional; endocrine; and metabolic disorders (20 sources) Hyperuricemia; Translations: [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 inflammatory arthritis and tophaceous disease] Onset: 05-27-2024 05-01-2024 Episodic Unclassified (1 source) LOW BACK PAIN, UNSPECIFIED; Translations: [LOW BACK PAIN, UNSPECIFIED] Onset: 08-02-2022 Results Test Name Value Interpretation Reference Range Facility MAGNESIUMon 11-17-2024 Magnesium [Mass/Vol] 1.8 mg/dL Normal 1.8-2.6 [facility] Comment on above: Performed By: #### 1 9123-9 ####[facility] ([id number])[address] [place] [address] MAGNESIUMon 11-10-2024 Magnesium [Mass/Vol] 1.8 mg/dL Normal 1.8-2.6 [facility] Comment on above: Performed By: #### 1 9123-9 ####[facility] ([id number])[address] [place] [address] 71795 MAGNESIUMon 11-03-2024 Magnesium [Mass/Vol] 1.7 mg/dL Low 1.8-2.6 [facility] Comment on above: Performed By: #### 1 9123-9 ####[facility] ([id number])[address] [place] [address] 76395 MAGNESIUMon 10-27-2024 Magnesium [Mass/Vol] 1.8 mg/dL Normal 1.8-2.6 [facility] Comment on above: Performed By: #### 1 9123-9 ####[facility] ([id number])[address] [place] [address] 37648 MAGNESIUMon 10-20-2024 Magnesium [Mass/Vol] 1.9 mg/dL Normal 1.8-2.6 [facility] Comment on above: Performed By: #### 1 9123-9 ####[facility] ([id number])[address] [place] [address] 18679 MAGNESIUMon 10-13-2024 Magnesium [Mass/Vol] 1.8 mg/dL Normal 1.8-2.6 [facility] Comment on above: Performed By: #### 1 9123-9 ####[facility] ([id number])[address] [place] [address] 28466 MAGNESIUMon 10-06-2024 Magnesium [Mass/Vol] 1.7 mg/dL Low 1.8-2.6 [facility] Comment on above: Performed By: #### 1 9123-9 ####[facility] ([id number])[address] [place] [address] 94563 MAGNESIUMon 09-29-2024 Magnesium [Mass/Vol] 1.7 mg/dL Low 1.8-2.6 [facility] Comment on above: Performed By: #### 1 9123-9 ####[facility] ([id number])[address] [place] [address] 01453 Glucose Glucometer (BldC) [M ass/Vol]on 09-26-2024 Glucose [Mass/Vol] 154 mg/dL High 65-99 [facility] Surgical Pathologyon 024 Surgical Pathology Normal [facility] Comment on above: Result Comment: [facility] [address] [place] [address] Surgical Pathology ConsultationPatient Name:ADORE DUGAN:1940 (Age: 83)Gender:FTaken:4Reported:10/01/2024hysician(s):Daniel Guerrero MD ([phone])Copy To: Rec. #:[id number]: #[id number] Pathologic Diagnosis1. Duodenum, second portion, biopsy: Duodenal mucosa with no significant diagnostic abnormality. No evidence of celiac disease.2. Duodenum, bulb, biopsy: Ectopic gastric mucosa.3. Stomach, polypectomy: Fundic gland polyp.4. Esophagus, distal, biopsy: Junctional mucosa with no significant diagnostic abnormality. No evidence of intestinal metaplasia. Report Electronically Signed Outrg/10/01/2024paula Coto [place] [address], License number: [id number].Clinical History Ross's esophagus.Gross Description1. Received in formalin labeled [facility], second portion of duodenum are two light abbott soft tissue bits, 0.2 cm each. The specimen is filtered and entirely submitted in a single cassette. (1, ns, [id number],m3) DM.2. .Received in formalin labeled [facility], duodenal bulb biopsies are three light abbott soft tissue bits, 0.2 cm each. The specimen is filtered and entirely submitted in a single cassette. (1, ns, [id number],m3) DM.3. Received in formalin labeled [facility], fundic gland polyp is a light abbott soft tissue bit, 0.3 cm. The specimen is filtered and entirely submitted in a single cassette. (1, ns, [id number],m3) DM.4. Received in formalin labeled [facility], distal esophageal biopsy are three pale-abbott soft tissue bits, 0.2 cm each. The specimen is filtered and entirely submitted in a single cassette. (1, ns, [id number],m3) DM.dm/09/27/2024GRSpecimen(s) Received1: Second portion of duodenum biopsies2: Duodenal bulb biopsy3: Fundic gland polyp4: Esophageal distal biopsyFee Codes(s):1; 451038; 065029; 317666; 34015 MAGNESIUMon 09-22-2024 Magnesium [Mass/Vol] 1.8 mg/dL Normal 1.8-2.6 [facility] Comment on above: Performed By: #### 1 9123-9 ####[facility] ([id number])[address] [place] [address] 48633 MAGNESIUMon 09-15-2024 Magnesium [Mass/Vol] 1.8 mg/dL Normal 1.8-2.6 [facility] Comment on above: Performed By: #### 1 9123-9 ####[facility] ([id number])[address] [place] [address] 67173 MAGNESIUMon 09-08-2024 Magnesium [Mass/Vol] 1.7 mg/dL Low 1.8-2.6 [facility] Comment on above: Performed By: #### 1 9123-9 ####[facility] ([id number])[address] [place] [address] 28360 MAGNESIUMon 09-01-2024 Magnesium [Mass/Vol] 1.8 mg/dL Normal 1.8-2.6 [facility] Comment on above: Performed By: #### 1 9123-9 ####[facility] ([id number])[address] [place] [address] 50282 MAGNESIUMon 08-25-2024 Magnesium [Mass/Vol] 1.6 mg/dL Low 1.8-2.6 [facility] Comment on above: Performed By: #### 1 9123-9 ####[facility] ([id number])[address] [place] [address] 23600 MAGNESIUMon 08-18-2024 Magnesium [Mass/Vol] 1.6 mg/dL Low 1.8-2.6 [facility] Comment on above: Performed By: #### 1 9123-9 ####[facility] ([id number])[address] [place] [address] 13048 MAGNESIUMon 08-11-2024 Magnesium [Mass/Vol] 1.6 mg/dL Low 1.8-2.6 [facility] Comment on above: Performed By: #### 1 9123-9 ####[facility] ([id number])[address] [place] [address] 92138 MAGNESIUMon 08-04-2024 Magnesium [Mass/Vol] 1.5 mg/dL Low 1.8-2.6 [facility] Comment on above: Performed By: #### 1 9123-9 ####[facility] ([id number])[address] [place] [address] 67329 MAGNESIUMon 07-28-2024 Magnesium [Mass/Vol] 1.5 mg/dL Low 1.8-2.6 [facility] Comment on above: Performed By: #### 1 9123-9 ####[facility] ([id number])[address] [place] [address] 57133 MAGNESIUMon 07-21-2024 Magnesium [Mass/Vol] 1.6 mg/dL Low 1.8-2.6 [facility] Comment on above: Performed By: #### 1 9123-9 ####[facility] ([id number])[address] [place] [address] 21977 MAGNESIUMon 07-15-2024 Magnesium [Mass/Vol] 1.5 mg/dL Low 1.8-2.6 [facility] Comment on above: Performed By: #### 1 9123-9 ####[facility] ([id number])[address] [place] [address] 94606 MAGNESIUMon 07-07-2024 Magnesium [Mass/Vol] 1.6 mg/dL Low 1.8-2.6 [facility] Comment on above: Performed By: #### 1 9123-9 ####[facility] ([id number])[address] [place] [address] 86760 MAGNESIUMon 06-30-2024 Magnesium [Mass/Vol] 1.6 mg/dL Low 1.8-2.6 [facility] Comment on above: Performed By: #### 1 9123-9 ####[facility] ([id number])[address] [place] [address] 65734 MAGNESIUMon 06-23-2024 Magnesium [Mass/Vol] 1.7 mg/dL Low 1.8-2.6 [facility] Comment on above: Performed By: #### 1 9123-9 ####[facility] ([id number])[address] [place] [address] 85143 MAGNESIUMon 06-16-2024 Magnesium [Mass/Vol] 1.7 mg/dL Low 1.8-2.6 [facility] Comment on above: Performed By: #### 1 9123-9 ####[facility] ([id number])[address] [place] [address] 88192 MAGNESIUMon 06-09-2024 Magnesium [Mass/Vol] 1.7 mg/dL Low 1.8-2.6 [facility] Comment on above: Performed By: #### 1 9123-9 ####[facility] ([id number])[address] [place] [address] 75142 MAGNESIUMon 06-02-2024 Magnesium [Mass/Vol] 1.6 mg/dL Low 1.8-2.6 [facility] Comment on above: Performed By: #### 1 9123-9 ####[facility] ([id number])[address] [place] [address] URINE CULTUREon 05-30-2024 Bacteria identified Cx Nom (U) CULTURE RESULTS >100,000 ORGANISMS/mL ENTEROBACTER CLOACAE COMPLEX MULTIPLE SPECIES PRESENT. PROBABLE COLLECTION CONTAMINATION. SUGGEST REPEAT SPECIMEN. CORRECTED REPORT [ S = SUSCEPTIBLE R = RESISTANT I = INTERMEDIATE S-DO = Susceptible-dose dependent NS = Non-suscceptible NO = No Interpretation ] Organism: ENTEROBACTER CLOACAE COMPLEX Antibiotic Interpretation URBAN Status CEFAZOLIN R >=64 F CEFEPIME S <=1 F CEFTRIAXONE S <=1 F CIPROFLOXACIN S <=0.25 F GENTAMICIN S <=1 F LEVOFLOXACIN S <=0.12 F NITROFURANTOIN S 32 F PIPERACIL/TAZOBACTAM S <=4 F TOBRAMYCIN S <=1 F TRIMETH/SULFAMETHOXAZOL E S <=11/30 F Susceptible [facility] Comment on above: Performed By: #### 6 30-4 #### [facility] ([id number]) [address] [place] [address] URINE CULTUREon 05-27-2024 Bacteria identified Cx Nom (U) CULTURE RESULTS MULTIPLE SPECIES PRESENT. PROBABLE COLLECTION CONTAMINATION. SUGGEST REPEAT SPECIMEN. Normal [facility] Comment on above: Performed By: #### 6 30-4 #### [facility] ([id number]) [address] [place] [address] MAGNESIUMon 05-26-2024 Magnesium [Mass/Vol] 1.6 mg/dL Low 1.8-2.6 [facility] Comment on above: Performed By: #### 1 9123-9 ####[facility] ([id number])[address] [place] [address] 59548 MAGNESIUMon 05-19-2024 Magnesium [Mass/Vol] 1.7 mg/dL Low 1.8-2.6 [facility] Comment on above: Performed By: #### 1 9123-9 ####[facility] ([id number])[address] [place] [address] 04204 MAGNESIUMon 05-12-2024 Magnesium [Mass/Vol] 1.6 mg/dL Low 1.8-2.6 [facility] Comment on above: Performed By: #### 1 9123-9 ####[facility] ([id number])[address], [address] [place] [address] 31461 MAGNESIUMon 05-05-2024 Magnesium [Mass/Vol] 1.4 mg/dL Low 1.8-2.6 [facility] Comment on above: Performed By: #### 1 9123-9 ####[facility] ([id number])[address] [place] [address] 24368 MAGNESIUMon 04-28-2024 Magnesium [Mass/Vol] 1.5 mg/dL Low 1.8-2.6 [facility] Comment on above: Performed By: #### 1 9123-9 ####[facility] ([id number])[address] [place] [address] 80957 COMPLETE BLOOD COUNTon 04-21 Erythrocyte distribution width (RBC) [Ratio] 16.6 % High 11.5-15.0 [facility] Comment on above: Performed By: #### C BC, UPCR, FEPR, 70262-3, RENAL, 3084-1, 2276-4, 2731-8, 16738-0 ####[facility] ([id number])[address], [address] [place] [address] 53596 Hematocrit (Bld) [Volume fraction] 33.8 % Low 35-47 [facility] Comment on above: Performed By: #### C BC, UPCR, FEPR, 01841-2, RENAL, 3084-1, 2276-4, 2731-8, 70529-7 ####[facility] ([id number])[address], [place] [address] Hemoglobin (Bld) [Mass/Vol] 11.0 g/dL Low 11.7-15.5 [facility] Comment on above: Performed By: #### C BC, UPCR, FEPR, 54287-4, RENAL, 3084-1, 2276-4, 2731-8, 28193-7 ####[facility] ([id number])[address], [place] [address] MCH (RBC) [Entitic mass] 30.0 pg Normal 27-34 [facility] Comment on above: Performed By: #### C BC, UPCR, FEPR, 83552-4, RENAL, 3084-1, 2276-4, 2731-8, 11962-6 ####[facility] ([id number])[address], [address] [place] [address] 43754 MCHC (RBC) [Mass/Vol] 32.7 g/dL Normal 32-36 [facility] Comment on above: Performed By: #### C BC, UPCR, FEPR, 71589-1, RENAL, 3084-1, 2276-4, 2731-8, 83046-6 ####[facility] ([id number])[address], [address] [place] [address] 90848 MCV (RBC) [Entitic vol] 92 fL Normal 80-100 [facility] Comment on above: Performed By: #### C BC, UPCR, FEPR, 47863-3, RENAL, 3084-1, 2276-4, 2731-8, 19183-4 ####[facility] ([id number])[address] [facility] [place] [address] Platelet mean volume (Bld) [Entitic vol] 9.5 fL Normal 7-12 [facility] Comment on above: Performed By: #### C BC, UPCR, FEPR, 02125-4, RENAL, 3084-1, 2276-4, 2731-8, 27232-8 ####[facility] ([id number])[address] [address] [place] [address] Platelets (Bld) [#/Vol] 182 10*3/uL Normal 150-450 [facility] Comment on above: Performed By: #### C BC, UPCR, FEPR, 78559-1, RENAL, 3084-1, 2276-4, 2731-8, 32294-8 ####[facility] ([id number])[address], [address] [place] [address] 72783 RBC COUNT 3.68 X10E12/L Low 3.80-5.20 [facility] Comment on above: Performed By: #### C BC, UPCR, FEPR, 30548-2, RENAL, 3084-1, 2276-4, 2731-8, 07464-7 ####[facility] ([id number])[address] [address] [place] [address] 98235 WBC (Bld) [#/Vol] 6.2 10*3/uL Normal 4.0-11.0 [facility] Comment on above: Performed By: #### C BC, UPCR, FEPR, 80288-7, RENAL, 3084-1, 2276-4, 2731-8, 00963-7 ####[facility] ([id number])[address] [address] [place] [address] 53405 FERRITINon 04-21-2024 Ferritin [Mass/Vol] 113 ng/mL Normal 11-307 [facility] Comment on above: Performed By: #### C BC, UPCR, FEPR, 64055-2, RENAL, 3084-1, 2276-4, 2731-8, 78955-7 ####[facility] ([id number])[address] [address] [place] [address] 59579 IRON PROFILEon 04-21-2024 Iron [Mass/Vol] 56 ug/dL Normal 50-170 [facility] Comment on above: Performed By: #### C BC, UPCR, FEPR, 68566-9, RENAL, 3084-1, 2276-4, 2731-8, 75395-0 ####[facility] ([id number])[address] [place] [address] IRON BINDING 307 ug/dL Normal 250-425 [facility] Comment on above: Performed By: #### C BC, UPCR, FEPR, 03474-3, RENAL, 3084-1, 2276-4, 2731-8, 35207-4 ####[facility] ([id number])[address], [place] [address] IRON SATURATION 18 % SATURATION Normal 15-50 [facility] Comment on above: Performed By: #### C BC, UPCR, FEPR, 67460-8, RENAL, 3084-1, 2276-4, 2731-8, 72571-1 ####[facility] ([id number])[address], [place] [address] MAGNESIUMon 04-21-2024 Magnesium [Mass/Vol] 1.4 mg/dL Low 1.8-2.6 [facility] Comment on above: Performed By: #### C BC, UPCR, FEPR, 54729-2, RENAL, 3084-1, 2276-4, 2731-8, 90197-0 ####[facility] ([id number])[address] [address] PROTEIN CREAT RATIOon 2023 RANDOM URINE PROTEIN 470 mg/L High <120 [facility] Comment on above: Performed By: #### C BC, UPCR, FEPR, 63879-3, RENAL, 3084-1, 2276-4, 2731-8, 60628-4 ####[facility] ([id number])[address], [address], [place] [address] U/PRO/EQUAL OPPORTUNITY SPECIALIST RATIO CALC 0.50 High <0.2 [facility] Comment on above: Result Comment: Neph rotic Syndrome is associated with ratios >3.5 Performed By: #### C BC, UPCR, FEPR, 26937-3, RENAL, 3084-1, 2276-4, 2731-8, 64754-7 ####[facility] ([id number])[address], [address], [place] [address] URINE CREATININE,RDM 94.29 mg/dL Normal [facility] Comment on above: Performed By: #### C BC, UPCR, FEPR, 28119-8, RENAL, 3084-1, 2276-4, 2731-8, 50159-2 ####[facility] ([id number])[address], [address], [place] [address] Parathyrin.intact [Mass/Vol] on 04-21-2024 PTH INTACT 168 pg/mL High 12-88 [facility] Comment on above: Performed By: #### C BC, UPCR, FEPR, 42507-9, RENAL, 3084-1, 2276-4, 2731-8, 23265-3 ####[facility] ([id number])[address], [address], [place] [address] RENAL PANELon 04-21-2024 Albumin [Mass/Vol] 3.7 g/dL Normal 3.2-5.3 [facility] Comment on above: Performed By: #### C BC, UPCR, FEPR, 57911-0, RENAL, 3084-1, 2276-4, 2731-8, 68910-4 ####[facility] ([id number])[address], [address], [place] [address] Anion gap [Moles/Vol] 11 mmol/L Normal 5-15 [facility] Comment on above: Performed By: #### C BC, UPCR, FEPR, 56741-6, RENAL, 3084-1, 2276-4, 2731-8, 42773-3 ####[facility] ([id number])[address] [address], [place] [address] Calcium [Mass/Vol] 8.9 mg/dL Normal 8.5-10.5 [facility] Comment on above: Performed By: #### C BC, UPCR, FEPR, 53623-3, RENAL, 3084-1, 2276-4, 2731-8, 33512-1 ####[facility] ([id number])[address] [address] [place] [address] Chloride [Moles/Vol] 106 mmol/L Normal 98-109 [facility] Comment on above: Performed By: #### C BC, UPCR, FEPR, 40371-5, RENAL, 3084-1, 2276-4, 2731-8, 80297-8 ####[facility] ([id number])[address] [address] [place] [address] CO2 [Moles/Vol] 26 mmol/L Normal 22-32 [facility] Comment on above: Performed By: #### C BC, UPCR, FEPR, 89325-8, RENAL, 3084-1, 2276-4, 2731-8, 79620-3 ####[facility] ([id number])[address] [address] [place] [address] Creatinine [Mass/Vol] 1.78 mg/dL High 0.40-1.00 [facility] Comment on above: Result Comment: METH OD TRACEABLE TO IDMS STANDARD Performed By: #### C BC, UPCR, FEPR, 41169-7, RENAL, 3084-1, 2276-4, 2731-8, 30589-5 ####[facility] ([id number])[address] [address] [place] [address] GFR/1.73 sq M.predicted among non-blacks MDRD (S/P/Bld) [Vol rate/Area] 28 mL/min/{1.73_m2} Low >59 [facility] Comment on above: Result Comment: Repo rted eGFR is based on theCKD-EPI 2020 equation that doesnot use a race coefficient. Performed By: #### C BC, UPCR, FEPR, 66481-1, RENAL, 3084-1, 2276-4, 2731-8, 00221-7 ####[facility] ([id number])[address], [place] [address] Glucose [Mass/Vol] 157 mg/dL High 65-99 [facility] Comment on above: Performed By: #### C BC, UPCR, FEPR, 66320-1, RENAL, 3084-1, 2276-4, 2731-8, 44243-9 ####[facility] ([id number])[address], [address], [place] [address] Phosphate [Mass/Vol] 3.8 mg/dL Normal 2.4-4.9 [facility] Comment on above: Performed By: #### C BC, UPCR, FEPR, 02502-6, RENAL, 3084-1, 2276-4, 2731-8, 08411-2 ####[facility] ([id number])[address], [place] [address] Potassium [Moles/Vol] 4.2 mmol/L Normal 3.5-5.0 [facility] Comment on above: Performed By: #### C BC, UPCR, FEPR, 40295-2, RENAL, 3084-1, 2276-4, 2731-8, 07068-8 ####[facility] ([id number])[address], [place] [address] Sodium [Moles/Vol] 143 mmol/L Normal 134-146 [facility] Comment on above: Performed By: #### C BC, UPCR, FEPR, 48375-8, RENAL, 3084-1, 2276-4, 2731-8, 41746-8 ####[facility] ([id number])[address], [address], [place] [address] Urea nitrogen [Mass/Vol] 42 mg/dL High 5-27 [facility] Comment on above: Performed By: #### C BC, UPCR, FEPR, 04431-7, RENAL, 3084-1, 2276-4, 2731-8, 61746-7 ####[facility] ([id number])[address], [address], [place] [address] URIC ACIDon 04-21-2024 Urate [Mass/Vol] 4.3 mg/dL Normal 2.6-7.2 [facility] Comment on above: Performed By: #### C BC, UPCR, FEPR, 10821-1, RENAL, 3084-1, 2276-4, 2731-8, 04076-3 ####[facility] ([id number])[address], [address], [place] [address] URINALYSISon 04-21-2024 Bilirubin Ql (U) Negative Normal NEG [facility] Comment on above: Performed By: #### U A ####[facility] ([id number])[address], [address], [place] [address] BLOOD/HGB Trace Abnormal NEG [facility] Comment on above: Performed By: #### U A ####[facility] ([id number])[address], [address], [place] [address] Color (U) YELLOW Normal YELLOW [facility] Comment on above: Performed By: #### U A ####[facility] ([id number])[address], [address], [place] [address] Glucose Ql (U) Negative Normal NEG [facility] Comment on above: Performed By: #### U A ####[facility] ([id number])[address], [address], [place] [address] Ketones Ql (U) Negative Normal NEG [facility] Comment on above: Performed By: #### U A ####[facility] ([id number])[address], [address], [place] [address] Leukocyte esterase Test strip Ql (U) Large Abnormal NEG [facility] Comment on above: Performed By: #### U A ####[facility] ([id number])[address] [place] [address] MUCOUS PRESENT Abnormal NONE [facility] Comment on above: Performed By: #### U A ####[facility] ([id number])[address] [place] [address] Nitrite Ql (U) Negative Normal NEG [facility] Comment on above: Performed By: #### U A ####[facility] ([id number])[address] [place] [address] pH (U) 6.0 [pH] Normal 5.0-8.5 [facility] Comment on above: Performed By: #### U A ####[facility] ([id number])[address], [address], [place] [address] Protein Ql (U) 50 mg/dL Abnormal NEG [facility] Comment on above: Performed By: #### U A ####[facility] ([id number])[address], [place] [address] R.B.CELLS 5 /hpf Normal 0-5 [facility] Comment on above: Performed By: #### U A ####[facility] ([id number])[address], [address], [place] [address] Specific gravity (U) [Rel density] 1.014 Normal 1.003-1.035 [facility] Comment on above: Performed By: #### U A ####[facility] ([id number])[address] [place] [address] [address], [place] [address] SQUAMOUS EPITHELIUM 1 /hpf Normal 0-5 [facility] Comment on above: Performed By: #### U A ####[facility] ([id number])[address] [place] [address] [address], [place] [address] TURBIDITY HAZY Abnormal CLEAR [facility] Comment on above: Performed By: #### U A ####[facility] ([id number])[address] [place] [address] [address], [place] [address] Urobilinogen (U) [Mass/Vol] mg/dL Normal <1.1 [facility] Comment on above: Performed By: #### U A ####[facility] ([id number])[address] [place] [address] [address], [place] [address] W.B.CELLS 455 /hpf High 0-5 [facility] Comment on above: Performed By: #### U A ####[facility] ([id number])[address] [place] [address] [address], [place] [address] WBC CLUMPS RARE Abnormal NONE [facility] Comment on above: Performed By: #### U A ####[facility] ([id number])[facility] [address], [place] [address] Vitamin D+Metabolites [Mass/ Vol]on 04-21-2024 VITAMIN D 25 HYD TOT 32.8 ng/mL Normal 30-100 [facility] Comment on above: Result Comment: Radha min D status 25 [place] Vitamin D Deficiency <20 ng/mLInsufficiency 20-29 ng/mLSufficiency 30-100 ng/mLToxicity >100 ng/mLNOTE: A pediatric reference range has not beenestablished by the officer captain of this kit.The [place] [employer] recommendsa Vitamin D level of = or >20ng/mL in infantsand children. Performed By: #### C BC, UPCR, FEPR, 52308-8, RENAL, 3084-1, 2276-4, 2731-8, 67647-2 ####[facility] ([id number])[address] [place] [address], [address] [place] [address] MAGNESIUMon 04-14-2024 Magnesium [Mass/Vol] 1.6 mg/dL Low 1.8-2.6 [facility] Comment on above: Performed By: #### 1 9123-9 ####[facility] ([id number])[address] [place] [address] MAGNESIUMon 04-08-2024 Magnesium [Mass/Vol] 1.5 mg/dL Low 1.8-2.6 [facility] Comment on above: Performed By: #### 1 9123-9 ####[facility] ([id number])[address] [place] [address] MAGNESIUMon 03-31-2024 Magnesium [Mass/Vol] 1.7 mg/dL Low 1.8-2.6 [facility] Comment on above: Performed By: #### 1 9123-9 ####[facility] ([id number])[address] [place] [address] MAGNESIUMon 03-24-2024 Magnesium [Mass/Vol] 1.6 mg/dL Low 1.8-2.6 [facility] Comment on above: Performed By: #### 1 9123-9 ####[facility] ([id number])[address] [place] [address] MAGNESIUMon 03-17-2024 Magnesium [Mass/Vol] 1.6 mg/dL Low 1.8-2.6 [facility] Comment on above: Performed By: #### 1 9123-9 ####[facility] ([id number])[address] [place] [address]007 MAGNESIUMon 03-10-2024 Magnesium [Mass/Vol] 1.6 mg/dL Low 1.8-2.6 [facility] Comment on above: Performed By: #### 1 9123-9 ####[facility] ([id number])[address] [place] [address]29 MAGNESIUMon 03-03-2024 Magnesium [Mass/Vol] 1.8 mg/dL Normal 1.8-2.6 [facility] Comment on above: Performed By: #### 1 9123-9 ####[facility] ([id number])[address] [place] [address]21 MAGNESIUMon 02-25-2024 Magnesium [Mass/Vol] 1.9 mg/dL Normal 1.8-2.6 [facility] Comment on above: Performed By: #### 1 9123-9 ####[facility] ([id number])[address] [place] [address] MAGNESIUMon 02-18-2024 Magnesium [Mass/Vol] 1.9 mg/dL Normal 1.8-2.6 [facility] Comment on above: Performed By: #### 1 9123-9 ####[facility] ([id number])[address] [place] [address]170 MAGNESIUMon 02-11-2024 Magnesium [Mass/Vol] 2.0 mg/dL Normal 1.8-2.6 [facility] Comment on above: Performed By: #### 1 9123-9 ####[facility] ([id number])[address] [place] [address] 27990 MAGNESIUMon 02-04-2024 Magnesium [Mass/Vol] 1.8 mg/dL Normal 1.8-2.6 [facility] Comment on above: Performed By: #### 1 9123-9 ####[facility] ([id number])[address] [place] [address], [place] [address] MAGNESIUMon 01-28-2024 Magnesium [Mass/Vol] 1.8 mg/dL Normal 1.8-2.6 [facility] Comment on above: Performed By: #### 1 9123-9 ####[facility] ([id number])[address] [place] [address]344 MAGNESIUMon 01-21-2024 Magnesium [Mass/Vol] 1.7 mg/dL Low 1.8-2.6 [facility] Comment on above: Performed By: #### 2 823-3, 14876-6 ####[facility] ([id number])[address] [place] [address] POTASSIUMon 01-21-2024 Potassium [Moles/Vol] 3.6 mmol/L Normal 3.5-5.0 [facility] Comment on above: Performed By: #### 2 823-3, 22772-4 ####[facility] ([id number])[address] [place] [address], [place] [address] MAGNESIUMon 01-14-2024 Magnesium [Mass/Vol] 1.6 mg/dL Low 1.8-2.6 [facility] Comment on above: Performed By: #### 1 9123-9 ####[facility] ([id number])[address] [place] [address] [place] [address] MAGNESIUMon 01-07-2024 Magnesium [Mass/Vol] 1.7 mg/dL Low 1.8-2.6 [facility] Comment on above: Performed By: #### 1 9123-9 ####[facility] ([id number])[address] [place] [address] MAGNESIUMon 12-31-2023 Magnesium [Mass/Vol] 1.7 mg/dL Low 1.8-2.6 [facility] Comment on above: Performed By: #### 1 9123-9 ####[facility] ([id number])[address] [place] [address] 99269 MAGNESIUMon 12-24-2023 Magnesium [Mass/Vol] 1.6 mg/dL Low 1.8-2.6 [facility] Comment on above: Performed By: #### 1 9123-9 ####[facility] ([id number])[address] [place] [address] MAGNESIUMon 12-17-2023 Magnesium [Mass/Vol] 1.5 mg/dL Low 1.8-2.6 [facility] Comment on above: Performed By: #### 1 9123-9 ####[facility] ([id number])[address] [place] [address]78 MAGNESIUMon 12-10-2023 Magnesium [Mass/Vol] 1.7 mg/dL Low 1.8-2.6 [facility] Comment on above: Performed By: #### 1 9123-9 ####[facility] ([id number])[address] [place] [address] 56071 MAGNESIUMon 12-03-2023 Magnesium [Mass/Vol] 1.7 mg/dL Low 1.8-2.6 [facility] Comment on above: Performed By: #### 1 9123-9 ####[facility] ([id number])[address] [place] [address] COMPREHENSIVE METABOLIC PANE Jared 11-26-2023 Albumin [Mass/Vol] 3.9 g/dL Normal 3.2-5.3 [facility] Comment on above: Performed By: #### 1 9123-9 ####[facility] ([id number])[address] [place] [address]#### [facility], 52867-2 ####[facility] ([id number])[address], [place] [address] ALP [Catalytic activity/Vol] 122 U/L Normal 39-130 [facility] Comment on above: Performed By: #### 1 9123-9 ####[facility] ([id number])[address] [place] [address]24#### JAS, 88668-6 ####[facility] ([id number])[address], [place] [address] ALT [Catalytic activity/Vol] 29 U/L Normal 0-31 [facility] Comment on above: Performed By: #### 1 9123-9 ####[facility] ([id number])[address] [place] [address] 88492#### JAS, 27857-1 ####[facility] ([id number])[address], [place] [address] Anion gap [Moles/Vol] 9 mmol/L Normal 5-15 [facility] Comment on above: Performed By: #### 1 9123-9 ####[facility] ([id number])[address] [place] [address] 27751#### JAS, 93642-0 ####[facility] ([id number])[address], [place] [address] AST [Catalytic activity/Vol] 22 U/L Normal 0-41 [facility] Comment on above: Performed By: #### 1 9123-9 ####[facility] ([id number])[address] [place] [address]64#### JAS, 79775-0 ####[facility] ([id number])[address], [place] [address] Bilirubin [Mass/Vol] 0.4 mg/dL Normal 0.3-1.2 [facility] Comment on above: Performed By: #### 1 9123-9 ####[facility] ([id number])[address] [place] [address] 68256#### JAS, 97944-5 ####[facility] ([id number])[address] [place] [address] Calcium [Mass/Vol] 9.7 mg/dL Normal 8.5-10.5 [facility] Comment on above: Performed By: #### 1 9123-9 ####[facility] ([id number])[address] [place] [address] 66168#### JAS, 48265-7 ####[facility] ([id number])[address] [place] [address] Chloride [Moles/Vol] 103 mmol/L Normal 98-109 [facility] Comment on above: Performed By: #### 1 9123-9 ####[facility] ([id number])[address] [place] [address] 24945#### JAS, 14372-1 ####[facility] ([id number])[address] [place] [address] CO2 [Moles/Vol] 30 mmol/L Normal 22-32 [facility] Comment on above: Performed By: #### 1 9123-9 ####[facility] ([id number])[address] [place] [address] 13920#### CMP, 43730-8 ####[facility] ([id number])[address], [place] [address] Creatinine [Mass/Vol] 1.53 mg/dL High 0.40-1.00 [facility] Comment on above: Result Comment: METH OD TRACEABLE TO IDMS STANDARD Performed By: #### 1 9123-9 ####[facility] ([id number])[address] [place] [address] 90388#### JAS, 85632-2 ####[facility] ([id number])[address], [place] [address] GFR/1.73 sq M.predicted among non-blacks MDRD (S/P/Bld) [Vol rate/Area] 34 mL/min/{1.73_m2} Low >59 [facility] Comment on above: Result Comment: Repo rted eGFR is based on theCKD-EPI 2020 equation that doesnot use a race coefficient. Performed By: #### 1 9123-9 ####[facility] ([id number])[address] [place] [address] 98936#### JAS, 19778-4 ####[facility] ([id number])[address] [address] [place] [address] Glucose [Mass/Vol] 165 mg/dL High 65-99 [facility] Comment on above: Performed By: #### 1 9123-9 ####[facility] ([id number])[address] [place] [address] 33429#### JAS, 65756-0 ####[facility] ([id number])[address], [place] [address] Potassium [Moles/Vol] 4.4 mmol/L Normal 3.5-5.0 [facility] Comment on above: Performed By: #### 1 9123-9 ####[facility] ([id number])[address] [place] [address] 52826#### JAS, 93660-7 ####[facility] ([id number])[address], [address] [place] [address] Protein [Mass/Vol] 7.1 g/dL Normal 6.0-8.0 [facility] Comment on above: Performed By: #### 1 9123-9 ####[facility] ([id number])[address] [place] [address] 41934#### CMP, 70340-8 ####[facility] ([id number])[address] [address] Sodium [Moles/Vol] 142 mmol/L Normal 134-146 [facility] Comment on above: Performed By: #### 1 9123-9 ####[facility] ([id number])[address] [place] [address] 78479#### JAS, 99645-0 ####[facility] ([id number])[address], [place] [address] Urea nitrogen [Mass/Vol] 43 mg/dL High 5-27 [facility] Comment on above: Performed By: #### 1 9123-9 ####[facility] ([id number])[address] [place] [address] 99693#### CMP, 85536-8 ####[facility] ([id number])[address] [place] [address] HGB A1C (GLYCO-HGB)on 2023 Glucose [Mass/Vol] 163 mg/dL Normal [facility] Comment on above: Performed By: #### 1 9123-9 ####[facility] ([id number])[address] [place] [address] 69439#### CMP, 46703-8 ####[facility] ([id number])[address], [place] [address] HbA1c (Bld) [Mass fraction] 7.3 % High 4.4-5.6 [facility] Comment on above: Result Comment: NOTE ADA Guidelines Result HgbA1c Normal : less than 5.7 % Prediabetes : 5.7 % to 6.4 % Diabetes : > 6.4 %Use with caution in patients with abnormal hemoglobin variants asthe half-life of red blood cells and in vivo glycation rates areaffected. Performed By: #### 1 9123-9 ####[facility] ([id number])[address] [place] [address]#### JAS, 66980-1 ####[facility] ([id number])[address] [place] [address], [address] [address] Lipid 1996 panelon 4 Cholesterol [Mass/Vol] 145 mg/dL Low 150-200 [facility] Comment on above: Performed By: #### 1 9123-9 ####[facility] ([id number])[address] [place] [address]#### JAS, 33287-5 ####[facility] ([id number])[address] [place] [address], [place] [address] Cholesterol in HDL [Mass/Vol] 53 mg/dL Normal >39 [facility] Comment on above: Result Comment: HDL <40 mg/dL - High RiskHDL > or = 40mg/dL- DesirableHDL >60 mg/dL - Negative Risk Performed By: #### 1 9123-9 ####[facility] ([id number])[address] [place] [address]#### JAS, 09462-0 ####[facility] ([id number])[address] [place] [address], [address] [address] Cholesterol in LDL [Mass/Vol] 43 mg/dL Normal <130 [facility] Comment on above: Result Comment: LDL <100 mg/dL - DesirableLDL >160 mg/dL - High Risk Performed By: #### 1 9123-9 ####[facility] ([id number])[address] [place] [address]#### CMP, 47969-2 ####[facility] ([id number])[address] [address] Cholesterol in VLDL [Mass/Vol] 49 mg/dL High 0-30 [facility] Comment on above: Performed By: #### 1 9123-9 ####[facility] ([id number])[address] [place] [address]#### CMP, 23709-8 ####[facility] ([id number])[address] [address] CHOLESTEROL:HDL 2.7 Normal 1.0-5.0 [facility] Comment on above: Performed By: #### 1 9123-9 ####[facility] ([id number])[address] [place] [address]#### CMP, 53733-9 ####[facility] ([id number])[address] [address] [place] [address] Triglyceride [Mass/Vol] 245 mg/dL High 27-150 [facility] Comment on above: Performed By: #### 1 9123-9 ####[facility] ([id number])[address] [place] [address]#### CMP, 49670-8 ####[facility] ([id number])[address] [place] [address], [address] [place] [address] MAGNESIUMon 11-26-2023 Magnesium [Mass/Vol] 1.8 mg/dL Normal 1.8-2.6 [facility] Comment on above: Performed By: #### 1 9123-9 ####[facility] ([id number])[address] [place] [address]#### [facility], 97415-7 ####[facility] ([id number])[address] [place] [address], [address] [place] [address] MICROALBUMIN - ALBUMIN:CREAT ININE URINE RATIOon 11-26-2023 ALB/CREAT RATIO 352.8 mg/g creat High 0.0-30.0 [facility] Comment on above: Performed By: #### M ALBU #### [facility] ([id number]) [address] [place] [address], [address] [place] [id number] Albumin DL <= 20 mg/L (U) [Mass/Vol] 14.6 mg/dL High 0.0-1.9 [facility] Comment on above: Performed By: #### M ALBU #### [facility] ([id number]) [address] [place] [address], [address] [place] [address] URINE CREAT 41.38 mg/dL Normal [facility] Comment on above: Performed By: #### M ALBU #### [facility] ([id number]) [address] [place] [address], [address] [address] Office Visiton 11-19-2023 Follow-up visit [id number] Adore Dugan 1940 F Date Provider Department Center 11/19/2023 [facility] Family History Problem Relation Age of Onset Heart attack Mother Family Status - Relation Status Age at Mother Level of Service:33661 PA OFFICE/OUTPATIENT ESTABLISHED LOW MDM 20 MIN Normal [facility] Magnesiumon 11-16-2023 Magnesium [Mass/Vol] 1.4 mg/dL Low 1.9-2.7 [facility] Comment on above: Result Comment: PERF ORMED BY: [place] [address] PATHOLOGIST RISK ENGINEER STONEY LINO M.D. Performed By: #### M G #### [facility] [address] Magnesium [Mass/volume] in S asiya or PlasmaOrdered By: Gia Munoz on 11-16-2023 Magnesium [Mass/Vol] 1.4 mg/dL 1.9-2.7 [facility] Multiple labsOrdered By: Mary Ann Carter on 11-16-2023 [facility] PTH INTACTon 01-16-2023 PTH, Intact 115 pg/mL Critically high 15-65 [facility] Comment on above: Performed By: #### M G, URIC, RENAL #### [facility] [address] [address] [address] Nacho Jeffery FERRITINon 01-15-2023 Ferritin [Mass/Vol] 304.0 ng/mL Critically high 8.0-252.0 [facility] Comment on above: Performed By: #### M Jamarcus, URIC, RENAL #### [facility] [address] [address] [address] Nacho Jeffery HEMOGRAM AND PLATELon 2022 Hematocrit (Bld) [Volume fraction] 36.0 % Normal 36.0-48.0 [facility] Comment on above: Performed By: #### M G, URIC, RENAL #### [facility] [address] [address] [address] Nacho Jeffery Hemoglobin (Bld) [Mass/Vol] 11.6 g/dL Critically low 12.0-16.0 [facility] Comment on above: Performed By: #### M G, URIC, RENAL #### [facility] [address] [address] [address] Nacho Jeffery MCH (RBC) [Entitic mass] 29.4 pg Normal 26.7-34.0 [facility] Comment on above: Performed By: #### M G, URIC, RENAL #### [facility] [address] [address] [address] Nacho Jfefery MCHC (RBC) [Mass/Vol] 32.2 g/dL Normal 29.9-35.2 [facility] Comment on above: Performed By: #### M G, URIC, RENAL #### [facility] [address] [place] [address] Dr. Nacho Jeffery MCV (RBC) [Entitic vol] 91.4 fL Normal 81.0-99.0 [facility] Comment on above: Performed By: #### M G, URIC, RENAL #### [facility] [address] [place] [address] Dr. Nacho Jeffery PLT 202 103/ul Normal 150-450 [facility] Comment on above: Performed By: #### M G, URIC, RENAL #### [facility] [address] [place] [address] Dr. Nacho Jeffery RBC 3.94 106/ul Critically low 4.20-5.40 [facility] Comment on above: Performed By: #### M G, URIC, RENAL #### [facility] [address] [place] [address] Dr. Nacho Jeffery WBC 5.9 103/ul Normal 4.0-11.0 [facility] Comment on above: Performed By: #### M G, URIC, RENAL #### [facility] [address] [place] [address] Dr. Nacho Jeffery IRON AND TIBCon 01-15-2023 % SATURATION 23.4 % Normal [facility] Comment on above: Performed By: #### M G, URIC, RENAL #### [facility] [address] [place] [address] Dr. Nacho Jeffery Iron [Mass/Vol] 62.0 ug/dL Normal 50.0-170.0 [facility] Comment on above: Performed By: #### M G, URIC, RENAL #### [facility] [address] [place] [address] Dr. Nacho Jeffery TIBC DIRECT 265.0 ug/dL Normal 250.0-450.0 [facility] Comment on above: Performed By: #### M G, URIC, RENAL #### [facility] [address] [address] [address] Nacho Jeffery MAGNESIUMon 01-15-2023 Magnesium [Mass/Vol] 1.5 mg/dL Critically low 1.8-2.4 [facility] Comment on above: Performed By: #### M G, URIC, RENAL #### [facility] [address] [address] [address] Nacho Jeffery RENAL FUNCTION PANELon 01-15 Albumin [Mass/Vol] 3.4 g/dL Normal 3.4-5.0 [facility] Comment on above: Performed By: #### M G, URIC, RENAL #### [facility] [address] [address] [address] Nacho Jeffery Calcium [Mass/Vol] 9.2 mg/dL Normal 8.5-10.1 [facility] Comment on above: Performed By: #### M G, URIC, RENAL #### [facility] [address] [address] [address] Nacho Jeffery Chloride [Moles/Vol] 104 mmol/L Normal 98-107 [facility] Comment on above: Performed By: #### M G, URIC, RENAL #### [facility] [address] [address] [address] Nacho Jeffery CO2 [Moles/Vol] 30.8 mmol/L Normal 21.0-32.0 [facility] Comment on above: Performed By: #### M G, URIC, RENAL #### [facility] [address] [address] [address] Nacho Jeffery Creatinine [Mass/Vol] 1.52 mg/dL Critically high 0.55-1.02 [facility] Comment on above: Performed By: #### M G, URIC, RENAL #### [facility] [address] [address] [address] Nacho Jeffery EGFR-AF ALBANIAN 40 mL/min/1.73m2 Critically low >=60 [facility] Comment on above: Performed By: #### M G, URIC, RENAL #### [facility] [address] [place] [address] Dr. Nacho Jeffery EGFR-NON AF ALBANIAN 33 mL/min/1.73m2 Critically low >=60 [facility] Comment on above: Performed By: #### M G, URIC, RENAL #### [facility] [address] [place] [address] Dr. Nacho Jeffery Glucose [Mass/Vol] 172 mg/dL Critically high 74-106 [facility] Comment on above: Performed By: #### M G, URIC, RENAL #### [facility] [address] [place] [address] Dr. Nacho Jeffery Phosphate [Mass/Vol] 3.7 mg/dL Normal 2.6-4.7 [facility] Comment on above: Performed By: #### M G, URIC, RENAL #### [facility] [address] [place] [address] Dr. Nacho Jeffery Potassium [Moles/Vol] 4.2 mmol/L Normal 3.5-5.1 [facility] Comment on above: Performed By: #### M G, URIC, RENAL #### [facility] [address] [place] [address] Dr. Nacho Jeffery Sodium [Moles/Vol] 143 mmol/L Normal 136-145 [facility] Comment on above: Performed By: #### M G, URIC, RENAL #### [facility] [address] [place] [address] Dr. Nacho Jeffery Urea nitrogen [Mass/Vol] 56.0 mg/dL Critically high 7.0-18.0 [facility] Comment on above: Performed By: #### M G, URIC, RENAL #### [facility] [address] [place] [address] Dr. Nacho Jeffery UA RANDOM W/MICROSCOPICon BACTERIA NONE SEEN Normal NONE SEEN The [facility] Comment on above: Performed By: #### M G, URIC, RENAL #### [facility] [address] [address] [address] Nacho Jeffery Bilirubin Ql (U) Negative Normal NEGATIVE [facility] Comment on above: Performed By: #### M G, URIC, RENAL #### [facility] [address] [address] [address] Nacho Jeffery CAST NONE SEEN Normal NONE SEEN The [facility] Comment on above: Performed By: #### M G, URIC, RENAL #### [facility] [address] [address] [address] Nacho Jeffery Clarity (U) CLEAR Normal CLEAR [facility] Comment on above: Performed By: #### M G, URIC, RENAL #### [facility] [address] [place] [address] Dr. Nacho Jeffery Color (U) LT. YELLOW Normal YELLOW [facility] Comment on above: Performed By: #### M G, URIC, RENAL #### [facility] [address] [place] [address] Dr. Nacho Jeffery Crystals LM Nom (Urine sed) NONE SEEN Normal NONE SEEN [facility] Comment on above: Performed By: #### M G, URIC, RENAL #### [facility] [address] [place] [address] Dr. Nacho Jeffrey Epithelial cells LM Ql (Urine sed) RARE Normal NONE SEEN /RARE [facility] Comment on above: Performed By: #### M G, URIC, RENAL #### [facility] [address] [place] [address] Dr. Nacho Jeffery Glucose Ql (U) Negative Normal NEGATIVE [facility] Comment on above: Performed By: #### M G, URIC, RENAL #### [facility] [address] [place] [address] Dr. Nacho Jeffery Hemoglobin Ql (U) Negative Normal NEGATIVE The [facility] Comment on above: Performed By: #### M G, URIC, RENAL #### [facility] [address] [place] [address] Dr. Nacho Jeffery Ketones Ql (U) Negative Normal NEGATIVE [facility] Comment on above: Performed By: #### M G, URIC, RENAL #### [facility] [address] [address] [address] Nacho Jeffery LEUKOCYTES TRACE Abnormal NEGATIVE [facility] Comment on above: Performed By: #### M G, URIC, RENAL #### [facility] [address] [address] [address] Nacho Jeffery MUCOUS NONE SEEN Normal NONE SEEN The [facility] Comment on above: Performed By: #### M G, URIC, RENAL #### [facility] [address] [address] [address] Nacho Jeffery Nitrite Ql (U) Negative Normal NEGATIVE [facility] Comment on above: Performed By: #### M G, URIC, RENAL #### [facility] [address] [place] [address] Dr. Nacho Jeffery pH (U) 5.5 [pH] Normal 5-9 [facility] Comment on above: Performed By: #### M G, URIC, RENAL #### [facility] [address] [place] [address] Dr. Nacho Jeffery RBC 0-2 Normal 0-2 [facility] Comment on above: Performed By: #### M G, URIC, RENAL #### [facility] [address] [place] [address] Dr. Nacho Jeffery SPEC GRAVITY 1.015 Normal 1.005-<=1.025 [facility] Comment on above: Performed By: #### M G, URIC, RENAL #### [facility] [address] [place] [address] Dr. Nacho Jeffery UA PROTEIN Negative Normal NEGATIVE/ TRACE The [facility] Comment on above: Performed By: #### M G, URIC, RENAL #### [facility] [address] [place] [address] Dr. Nacho Jeffery Urobilinogen Qn (U) 0.2 {Zuleyka'U}/dL Normal 0.2 - 1. 0 [facility] Comment on above: Performed By: #### M G, URIC, RENAL #### [facility] [address] [place] [address] Dr. Nacho Jeffery WBC 2-5 Abnormal NONE SEEN The [facility] Comment on above: Performed By: #### M G, URIC, RENAL #### [facility] [address] [place] [address] Dr. Nacho Jeffery URIC ACID SERUMon 01-15-2023 Urate [Mass/Vol] 7.0 mg/dL Critically high 2.6-6.0 [facility] Comment on above: Performed By: #### M G, URIC, RENAL #### [facility] [address] [place] [address] Dr. Nacho Jeffery URINE T PROTEIN CREAT RATIOo n 01-15-2023 Protein (U) [Mass/Vol] 13.4 mg/dL Critically high <=12.0 [facility] Comment on above: Performed By: #### U RTPCR #### [facility] [address] [place] [address] Dr. Nacho Jeffery UR PROT CREAT RAT 0.24 Normal [facility] Comment on above: Performed By: #### U RTPCR #### [facility] [address] [place] [address] Dr. Nacho Jeffery URINE CREAT 56.90 mg/dL Normal 20.00-300.00 [facility] Comment on above: Performed By: #### U RTPCR #### [facility] [address] [place] [address] Dr. Nacho Jeffery VITAMIN D 25 OHon 01-15-2023 VIT D 25-OH 52.6 ng/mL Normal [facility] Comment on above: Performed By: #### M G, URIC, RENAL #### [facility] [address] [place] [address] Dr. Nacho Jeffery VIT D RANGES SEE BELOW Normal [facility] Comment on above: Result Comment: <20 ng/mL Vit D deficient 20 - <30 ng/mL Vit D insufficient 30 - 100 ng/mL Vit D sufficient >100 ng/mL Potential Toxicity Performed By: #### M G, URIC, RENAL #### [facility] [address] [place] [address] Dr. Nacho Jeffery Telemedicineon 12-06-2022 Telemedicine [id number] Adore Dugan 1940 F Date Provider Department Center 12/06/2022 Jesus-KERRI, EHAB CARD [facility] Family History Problem Relation Age of Onset Heart attack Mother Family Status - Relation Status Age at Mother Level of Service:39587 PA OFFICE/OUTPATIENT EST PT MAY NOT REQ PHYS/QHP Normal [facility] GLYCOHEMOGLOBIN A1Con 2021 ADA RECOMMENDATION SEE BELOW Normal [facility] Comment on above: Result Comment: ADA RECOMMENDED LIMIT 4.0 - 6.0 ADA THERAPEUTIC TARGET < 7.0 ACTION SUGGESTED > 7.0 Performed By: #### A 1C #### [facility] [address] [place] [address] Dr. Nacho Jeffery Glucose [Mass/Vol] 143 mg/dL Normal [facility] Comment on above: Performed By: #### A 1C #### [facility] [address] [place] [address] Dr. Nacho Jeffery HbA1c (Bld) [Mass fraction] 6.6 % Critically high 4.5-6.2 [facility] Comment on above: Performed By: #### A 1C #### [facility] [address] [place] [address] Dr. Nacho Jeffery LIPID PROFILEon 11-09-2022 CHOL-HDL RATIO NORM SEE BELOW Normal [facility] Comment on above: Result Comment: 3.3 - 4.4 LOW RISK 4.4 - 7.1 AVERAGE RISK 7.1 - 11.0 MODERATE RISK >11.0 HIGH RISK Performed By: #### M G, URIC, RENAL #### [facility] [address] [address] [address] Nacho Jeffery Cholesterol [Mass/Vol] 141 mg/dL Normal <=200 [facility] Comment on above: Performed By: #### M G, URIC, RENAL #### [facility] [address] [address] [address] Nacho Jeffery Cholesterol in HDL [Mass/Vol] 59 mg/dL Normal 40-60 [facility] Comment on above: Performed By: #### M G, URIC, RENAL #### [facility] [address] [address] [address] Nacho Jeffery Cholesterol in LDL [Mass/Vol] 46.2 mg/dL Normal [facility] Comment on above: Performed By: #### M G, URIC, RENAL #### [facility] [address] [address] [address] Nacho Jeffery Cholesterol.total/C holesterol in HDL [Mass ratio] 2.4 {ratio} Normal [facility] Comment on above: Performed By: #### M G, URIC, RENAL #### [facility] [address] [address] [address] Nacho Jeffery HDL NORMAL > or = 60 mg/dl - LO W CARDIOVASCULAR RISK <40 mg/dl - HIGH CARDIOVASCULAR RISK Normal [facility] Comment on above: Performed By: #### M G, URIC, RENAL #### [facility] [address] [place] [address] Dr. Nacho Jeffery LDL CALC NORMAL SEE BELOW Normal [facility] Comment on above: Result Comment: <100 mg/dl OPTIMAL 100 - 129 mg/dl NEAR OR ABOVE OPTIMAL 130 - 159 mg/dl BORDERLINE HIGH 160 - 189 mg/dl HIGH >190 mg/dl VERY HIGH Performed By: #### M G, URIC, RENAL #### [facility] [address] [place] [address] Dr. Nacho Jeffery Triglyceride [Mass/Vol] 179 mg/dL Critically high <=150 [facility] Comment on above: Performed By: #### M G, URIC, RENAL #### [facility] [address] [place] [address] Dr. Nacho Jeffery VLDL CALC 35.8 mg/dL Normal [facility] Comment on above: Performed By: #### M G, URIC, RENAL #### [facility] [address] [address] [address] Nacho Jeffery PROF 14(COMP METB)on 022 Albumin [Mass/Vol] 3.2 g/dL Critically low 3.4-5.0 Th e [facility] Comment on above: Performed By: #### M G, URIC, RENAL #### [facility] [address] [place] [address] Dr. Nacho Jeffery Albumin/Globulin [Mass ratio] 0.8 {ratio} Normal [facility] Comment on above: Performed By: #### M G, URIC, RENAL #### [facility] [address] [address] [address] Nacho Jeffery ALP [Catalytic activity/Vol] 109 U/L Normal 46-116 [facility] Comment on above: Performed By: #### M G, URIC, RENAL #### [facility] [address] [address] [address] Nacho Jeffery ALT [Catalytic activity/Vol] 38 U/L Normal 14-59 [facility] Comment on above: Performed By: #### M G, URIC, RENAL #### [facility] [address] [place] [address] Dr. Nacho Jeffery Anion gap [Moles/Vol] 13.7 mmol/L Normal [facility] Comment on above: Performed By: #### M G, URIC, RENAL #### [facility] [address] [address] [address] Nacho Jeffery AST [Catalytic activity/Vol] 27 U/L Normal 15-37 [facility] Comment on above: Performed By: #### M G, URIC, RENAL #### [facility] [address] [place] [address] Dr. Nacho Jeffery Bilirubin [Mass/Vol] 0.4 mg/dL Normal 0.2-1.0 [facility] Comment on above: Performed By: #### M G, URIC, RENAL #### [facility] [address] [address] [address] Nacho Jeffery Calcium [Mass/Vol] 9.2 mg/dL Normal 8.5-10.1 [facility] Comment on above: Performed By: #### M G, URIC, RENAL #### [facility] [address] [address] [address] Nacho Jeffery Chloride [Moles/Vol] 105 mmol/L Normal 98-107 [facility] Comment on above: Performed By: #### M G, URIC, RENAL #### [facility] [address] [address] [address] Nacho Jeffery CO2 [Moles/Vol] 29.5 mmol/L Normal 21.0-32.0 [facility] Comment on above: Performed By: #### M G, URIC, RENAL #### [facility] [address] [address] [address] Nacho Jeffery Creatinine [Mass/Vol] 1.62 mg/dL Critically high 0.55-1.02 [facility] Comment on above: Performed By: #### M G, URIC, RENAL #### [facility] [address] [address] [address] Nacho Jeffery EGFR-AF ALBANIAN 37 mL/min/1.73m2 Critically low >=60 [facility] Comment on above: Performed By: #### M Jamarcus, URIC, RENAL #### [facility] [address] [address] [address] Nacho Jeffery EGFR-NON AF ALBANIAN 31 mL/min/1.73m2 Critically low >=60 [facility] Comment on above: Performed By: #### M G, URIC, RENAL #### [facility] [address] [address] [address] Nacho Jeffery Globulin (S) [Mass/Vol] 3.8 g/dL Normal [facility] Comment on above: Performed By: #### M G, URIC, RENAL #### [facility] [address] [address] [address] Nacho Jeffery Glucose [Mass/Vol] 102 mg/dL Normal 74-106 [facility] Comment on above: Performed By: #### M G, URIC, RENAL #### [facility] [address] [address] [address] Nacho Jeffery Potassium [Moles/Vol] 4.2 mmol/L Normal 3.5-5.1 [facility] Comment on above: Performed By: #### M G, URIC, RENAL #### [facility] [address] [address] [address] Nacho Jeffery Protein [Mass/Vol] 7.0 g/dL Normal 6.4-8.2 [facility] Comment on above: Performed By: #### M G, URIC, RENAL #### [facility] [address] [address] [address] Nacho Jeffery Sodium [Moles/Vol] 144 mmol/L Normal 136-145 [facility] Comment on above: Performed By: #### M G, URIC, RENAL #### [facility] [address] [address] [address] Nacho Jeffery Urea nitrogen [Mass/Vol] 45.0 mg/dL Critically high 7.0-18.0 [facility] Comment on above: Performed By: #### M G, URIC, RENAL #### [facility] [address] [address] [address] Nacho Jeffery Urea nitrogen/Creatinine [Mass ratio] 27.8 mg/mg Normal [facility] Comment on above: Performed By: #### M G, URIC, RENAL #### [facility] [address] [place] [address] Dr. Nacho Jeffery OSMOLALITY URINEon 2 Osmolality, Urine 466 mOsmol/kg Normal [facility] Comment on above: Result Comment: 24 h r : 300 - 900 Random: 50 - 1400 After 12hr fluid restriction: >850 Performed By: #### M G, URIC, RENAL #### [facility] [address] [place] [address] Dr. Nacho Jeffery PTH INTACTon 07-13-2022 PTH, Intact 84 pg/mL Critically high 15-65 [facility] Comment on above: Performed By: #### P THINT #### [facility] [address] [place] [address] Dr. Nacho Jeffery VIT D 25-OH [facility] 2021 Vitamin D, 25-Hydroxy 34.7 ng/mL Normal 30.0-100.0 [facility] Comment on above: Result Comment: Radha min D deficiency has been defined by the [place] [employer] and an Endocrine Society practice guideline as a level of serum 25-OH vitamin D less than 20 ng/mL (1,2). The Endocrine Society went on to further define vitamin D insufficiency as a level between 21 and 29 ng/mL (2). 1. IOM ([place] [employer]). 2010. Dietary reference intakes for calcium and D. [place]: The National Academies Press. 2. Magdiel MF, Kb NC, Evens PEPPER, et al. Evaluation, treatment, and prevention of vitamin D deficiency: an Endocrine Society clinical practice guideline. JCEM. 2010; 96(7):1911-30. Performed By: #### M G, URIC, RENAL #### [facility] [address] [place] [address] Dr. Nacho Jeffery HEMOGRAM AND PLATELon 2021 Hematocrit (Bld) [Volume fraction] 35.5 % Critically low 36.0-48.0 [facility] Comment on above: Performed By: #### M Jamarcus, URIC, RENAL #### [facility] [facility] [address] [place] [address] Dr. Nacho Jeffery Hemoglobin (Bld) [Mass/Vol] 11.5 g/dL Critically low 12.0-16.0 [facility] Comment on above: Performed By: #### M G, URIC, RENAL #### [facility] [address] [place] [address] Dr. Nacho Jeffery MCH (RBC) [Entitic mass] 30.6 pg Normal 26.7-34.0 [facility] Comment on above: Performed By: #### M G, URIC, RENAL #### [facility] [address] [place] [address] Dr. Nacho Jeffery MCHC (RBC) [Mass/Vol] 32.4 g/dL Normal 29.9-35.2 [facility] Comment on above: Performed By: #### M G, URIC, RENAL #### [facility] [address] [place] [address] Dr. Nacho Jeffery MCV (RBC) [Entitic vol] 94.4 fL Normal 81.0-99.0 [facility] Comment on above: Performed By: #### M G, URIC, RENAL #### [facility] [address] [place] [address] Dr. Nacho Jeffery PLT 192 103/ul Normal 150-450 [facility] Comment on above: Performed By: #### M G, URIC, RENAL #### [facility] [address] [address] [address] Nacho Jeffery RBC 3.76 106/ul Critically low 4.20-5.40 [facility] Comment on above: Performed By: #### M G, URIC, RENAL #### [facility] [address] [address] [address] Nacho Jeffery WBC 6.1 103/ul Normal 4.0-11.0 [facility] Comment on above: Performed By: #### M G, URIC, RENAL #### [facility] [address] [address] [address] Nacho Jeffery MAGNESIUMon 07-12-2022 Magnesium [Mass/Vol] 1.3 mg/dL Critically low 1.8-2.4 [facility] Comment on above: Performed By: #### U CHRISTOFER, MG, RENAL #### [facility] [address] [address] [address] Nacho Jeffery RENAL FUNCTION PANELon 07-12 Albumin [Mass/Vol] 3.3 g/dL Critically low 3.4-5.0 [facility] Comment on above: Performed By: #### U CHRISTOFER, MG, RENAL #### [facility] [address] [place] [address] Dr. Nacho Jeffery Calcium [Mass/Vol] 9.1 mg/dL Normal 8.5-10.1 [facility] Comment on above: Performed By: #### U CHRISTOFER, MG, RENAL #### [facility] [address] [place] [address] Dr. Nacho Jeffery Chloride [Moles/Vol] 104 mmol/L Normal 98-107 [facility] Comment on above: Performed By: #### U CHRISTOFER, MG, RENAL #### [facility] [address] [place] [address] Dr. Nacho Jeffery CO2 [Moles/Vol] 31.7 mmol/L Normal 21.0-32.0 [facility] Comment on above: Performed By: #### U CHRISTOFER, MG, RENAL #### [facility] [address] [address] [address] Nacho Jeffery Creatinine [Mass/Vol] 1.52 mg/dL Critically high 0.55-1.02 [facility] Comment on above: Performed By: #### U CHRISTOFER, MG, RENAL #### [facility] [address] [place] [address] Dr. Nacho Jeffery EGFR-AF ALBANIAN 40 mL/min/1.73m2 Critically low >=60 [facility] Comment on above: Performed By: #### U CHRISTOFER, MG, RENAL #### [facility] [address] [place] [address] Dr. Nacho Jeffery EGFR-NON AF ALBANIAN 33 mL/min/1.73m2 Critically low >=60 [facility] Comment on above: Performed By: #### U CHRISTOFER, MG, RENAL #### [facility] [address] [place] [address] Dr. Nacho Jeffery Glucose [Mass/Vol] 221 mg/dL Critically high 74-106 [facility] Comment on above: Performed By: #### U CHRISTOFER, MG, RENAL #### [facility] [address] [place] [address] Dr. Nacho Jeffery Phosphate [Mass/Vol] 3.8 mg/dL Normal 2.6-4.7 [facility] Comment on above: Performed By: #### U CHRISTOFER, MG, RENAL #### [facility] [address] [place] [address] Dr. Nacho Jeffery Potassium [Moles/Vol] 4.1 mmol/L Normal 3.5-5.1 [facility] Comment on above: Performed By: #### U CHRISTOFER, MG, RENAL #### [facility] [address] [place] [address] Dr. Nacho Jeffery Sodium [Moles/Vol] 143 mmol/L Normal 136-145 [facility] Comment on above: Performed By: #### U CHRISTOFER, MG, RENAL #### [facility] [address] [place] [address] Dr. Nacho Jeffery Urea nitrogen [Mass/Vol] 45.0 mg/dL Critically high 7.0-18.0 [facility] Comment on above: Performed By: #### U CHRISTOFER, MG, RENAL #### [facility] [address] [address] [address] Nacho Jeffery UA RANDOM W/MICROSCOPICon BACTERIA NONE SEEN Normal NONE SEEN [facility] Comment on above: Performed By: #### M G, URIC, RENAL #### [facility] [address] [address] [address] Nacho Jeffery Bilirubin Ql (U) Negative Normal NEGATIVE [facility] Comment on above: Performed By: #### M G, URIC, RENAL #### [facility] [address] [place] [address] Dr. Nacho Jeffery CAST NONE SEEN Normal NONE SEEN [facility] Comment on above: Performed By: #### M G, URIC, RENAL #### [facility] [address] [place] [address] Dr. Nacho Jeffery Clarity (U) CLEAR Normal CLEAR [facility] Comment on above: Performed By: #### M G, URIC, RENAL #### [facility] [address] [place] [address] Dr. Nacho Jeffery Color (U) LT. YELLOW Normal YELLOW [facility] Comment on above: Performed By: #### M G, URIC, RENAL #### [facility] [address] [place] [address] Dr. Nacho Jeffery Crystals LM Nom (Urine sed) NONE SEEN Normal NONE SEEN [facility] Comment on above: Performed By: #### M G, URIC, RENAL #### [facility] [address] [place] [address] Dr. Nacho Jeffery Epithelial cells LM Ql (Urine sed) FEW Abnormal NONE SEEN /RARE [facility] Comment on above: Performed By: #### M G, URIC, RENAL #### [facility] [address] [place] [address] Dr. Nacho Jeffery Glucose Ql (U) Negative Normal NEGATIVE [facility] Comment on above: Performed By: #### M G, URIC, RENAL #### [facility] [address] [place] [address] Dr. Nacho Jeffery Hemoglobin Ql (U) Negative Normal NEGATIVE The [facility] Comment on above: Performed By: #### M G, URIC, RENAL #### [facility] [address] [address] [address] Nacho Jeffery Ketones Ql (U) Negative Normal NEGATIVE [facility] Comment on above: Performed By: #### M G, URIC, RENAL #### [facility] [address] [address] [address] Nacho Jeffery LEUKOCYTES TRACE Abnormal NEGATIVE [facility] Comment on above: Performed By: #### M G, URIC, RENAL #### [facility] [address] [address] [address] Nacho Jeffery MUCOUS NONE SEEN Normal NONE SEEN [facility] Comment on above: Performed By: #### M G, URIC, RENAL #### [facility] [address] [place] [address] Dr. Nacho Jeffery Nitrite Ql (U) Negative Normal NEGATIVE [facility] Comment on above: Performed By: #### M G, URIC, RENAL #### [facility] [address] [place] [address] Dr. Nacho Jeffery pH (U) 6.0 [pH] Normal 5-9 [facility] Comment on above: Performed By: #### M G, URIC, RENAL #### [facility] [address] [place] [address] Dr. Nacho Jeffery RBC NONE SEEN Abnormal 0-2 [facility] Comment on above: Performed By: #### M G, URIC, RENAL #### [facility] [address] [place] [address] Dr. Nacho Jeffery SPEC GRAVITY 1.015 Normal 1.005-<=1.025 [facility] Comment on above: Performed By: #### M G, URIC, RENAL #### [facility] [address] [place] [address] Dr. Nacho Jeffery UA PROTEIN Negative Normal NEGATIVE/ TRACE [facility] Comment on above: Performed By: #### M G, URIC, RENAL #### [facility] [address] [place] [address] Dr. Nacho Jeffery Urobilinogen Qn (U) 0.2 {Zuleyka'U}/dL Normal 0.2 - 1. 0 [facility] Comment on above: Performed By: #### M G, URIC, RENAL #### [facility] [address] [address] [address] Nacho Jeffery WBC 2-5 Abnormal NONE SEEN [facility] Comment on above: Performed By: #### M G, URIC, RENAL #### [facility] [address] [address] [address] Nacho Jeffery URIC ACID SERUMon 07-12-2022 Urate [Mass/Vol] 7.9 mg/dL Critically high 2.6-6.0 [facility] Comment on above: Performed By: #### U CHRISTOFER, MG, RENAL #### [facility] [address] [address] [address] Nacho Jeffery URINE T PROTEIN CREAT RATIOo n 07-12-2022 Protein (U) [Mass/Vol] 17.5 mg/dL Critically high <=12.0 [facility] Comment on above: Performed By: #### M G, URIC, RENAL #### [facility] [address] [address] [address] Nacho Jeffery UR PROT CREAT RAT 0.29 Normal [facility] Comment on above: Performed By: #### M G, URIC, RENAL #### [facility] [address] [address] [address] Nacho Jeffery URINE CREAT 60.37 mg/dL Normal 20.00-300.00 [facility] Comment on above: Performed By: #### M G, URIC, RENAL #### [facility] [address] [address] [address] Nacho Jeffery ALBUMIN, RANDOM URINE W/CREA TININEon 05-11-2022 ALBUMIN, URINE 0.5 mg/dL Normal See Note: [facility] Comment on above: Result Comment: Refe rence Range: Reference Range Not established Performed By: #### 4 96, 7600, 6517, 56234 #### [facility] [address] [place] [address], [address] [place] [address] Visual Merchandising Associate: Mauricio Kern MD ALBUMIN/CREATININE RATIO, RANDOM URINE [...] Performed By: #### 4 96, 7600, 6517, 31795 #### [facility] [address], [address] [place] [address] Visual Merchandising Associate: Mauricio Kern MD Creatinine (U) [Mass/Vol] 74 mg/dL Normal 20-275 [facility] Comment on above: Performed By: #### 4 96, 7600, 6517, 45509 #### [facility] [address], [address] [place] [address] Visual Merchandising Associate: Mauricio Kern MD BASIC METABOLIC PANELon 04-14 GLUCOSE Normal [facility] Comment on above: Result Comment: TEST NOT PERFORMED No specimen received. Performed By: #### 4 96, 7600, 6517, 61220 #### [facility] [address], [address] [place] [address] Visual Merchandising Associate: Mauricio Kern MD HEMOGLOBIN A1con 05-11-2022 HEMOGLOBIN A1c Normal [facility] Comment on above: Result Comment: TEST NOT PERFORMED No specimen received. Performed By: #### 4 96, 7600, 6517, 68022 #### [facility] [address], [address] [place] [address] Visual Merchandising Associate: Mauricio Kern MD LIPID PANEL, STANDARDon 04-14 CHOL/HDLC RATIO Normal [facility] Comment on above: Result Comment: TEST NOT PERFORMED No specimen received. Performed By: #### 4 96, 7600, 6517, 82512 #### [facility] [address], [address] [place] [address] Visual Merchandising Associate: Mauricio Kern MD CHOLESTEROL, TOTAL Normal [facility] Comment on above: Result Comment: TEST NOT PERFORMED No specimen received. Performed By: #### 4 96, 7600, 6517, 52027 #### [facility] [address], [address] [place] [address] Visual Merchandising Associate: Mauricio Kern MD HDL CHOLESTEROL Normal [facility] Comment on above: Result Comment: TEST NOT PERFORMED No specimen received. Performed By: #### 4 96, 7600, 6517, 54934 #### [facility] [address], [address] [place] [address] Visual Merchandising Associate: Mauricio Kern MD LDL-CHOLESTEROL Normal [facility] Comment on above: Result Comment: TEST NOT PERFORMED No specimen received. Performed By: #### 4 96, 7600, 6517, 35326 #### [facility] [address], [address] [place] [address] Visual Merchandising Associate: Mauricio Kern MD NON HDL CHOLESTEROL Normal [facility] Comment on above: Result Comment: TEST NOT PERFORMED No specimen received. Performed By: #### 4 96, 7600, 6517, 77665 #### [facility] [address] [place] [address] Visual Merchandising Associate: Mauricio Kern MD TRIGLYCERIDES Normal [facility] Comment on above: Result Comment: TEST NOT PERFORMED No specimen received. Performed By: #### 4 96, 7600, 6517, 68334 #### [facility] [address] [place] [address] Visual Merchandising Associate: Mauricio Kern MD BASIC METABOLIC PANELon 06-2 Calcium [Mass/Vol] 9.1 mg/dL Normal 8.6-10.4 [facility] Comment on above: Performed By: #### 1 0165, 496, 7600 #### [facility] [place] [address] Visual Merchandising Associate: Mauricio Kern MD Chloride [Moles/Vol] 105 mmol/L Normal 98-110 [facility] Comment on above: Performed By: #### 1 0165, 496, 7600 #### [facility] [address], [address] [place] [address] Visual Merchandising Associate: Mauricio Kern MD CO2 [Moles/Vol] 25 mmol/L Normal 20-32 [facility] Comment on above: Performed By: #### 1 0165, 496, 7600 #### [facility] [place] [address] Visual Merchandising Associate: Mauricio Kern MD Creatinine [Mass/Vol] 1.73 mg/dL High 0.60-0.93 [facility] Comment on above: Result Comment: For patients >49 years of age, the reference limit for Creatinine is approximately 13% higher for people identified as -Belarusian. Performed By: #### 1 0165, 496, 7600 #### [facility] [address], [address] [place] [address] Visual Merchandising Associate: Mauricio Kern MD eGFR NON-AFR. ALBANIAN 28 mL/min/1.73m2 Low > OR = 60 [facility] Comment on above: Performed By: #### 1 0165, 496, 7600 #### [facility] [place] [address] Visual Merchandising Associate: Mauricio Kern MD GFR/1.73 sq M.predicted among blacks MDRD (S/P/Bld) [Vol rate/Area] 32 mL/min/{1.73_m2} Low > OR = 60 [facility] Comment on above: Performed By: #### 1 0165, 496, 7600 #### [facility] [address], [address] [place] [address] Visual Merchandising Associate: Mauricio Kern MD Glucose [Mass/Vol] 137 mg/dL High 65-99 [facility] Comment on above: Result Comment: Fasting reference interval For someone without known diabetes, a glucose value >125 mg/dL indicates that they may have diabetes and this should be confirmed with a follow-up test. Performed By: #### 1 0165, 496, 7600 #### [facility] [address], [address] [place] [address] Visual Merchandising Associate: Mauricio Kern MD Potassium [Moles/Vol] 4.6 mmol/L Normal 3.5-5.3 [facility] Comment on above: Performed By: #### 1 0165, 496, 7600 #### [facility] [address], [address] [place] [address] Visual Merchandising Associate: Mauricio Kern MD Sodium [Moles/Vol] 142 mmol/L Normal 135-146 [facility] Comment on above: Performed By: #### 1 0165, 496, 7600 #### [facility] [place] [address] Visual Merchandising Associate: Mauricio Kern MD Urea nitrogen [Mass/Vol] 65 mg/dL High 7-25 [facility] Comment on above: Performed By: #### 1 0165, 496, 7600 #### [facility] [place] [address] Visual Merchandising Associate: Mauricio Kern MD Urea nitrogen/Creatinine [Mass ratio] 38 mg/mg High 6-22 [facility] Comment on above: Performed By: #### 1 0165, 496, 7600 #### [facility] [place] [address] Visual Merchandising Associate: Mauricio Kern MD HEMOGLOBIN A1con 05-04-2022 HEMOGLOBIN [...] 1 0165, 496, 7600 #### [facility] [address], [address] [place] [address] Visual Merchandising Associate: Mauricio Kern MD LIPID PANEL, [facility] 04-13 Cholesterol [Mass/Vol] 163 mg/dL Normal <200 [facility] Comment on above: Order Comment: FASTI NG:YES PATIENT UNABLE TO VOID; ADVISED TO RETURN FOR COLLECTION. FASTING: YES Performed By: #### 1 0165, 496, 6250 #### [facility] [address], [address] [place] [address] Visual Merchandising Associate: Mauricio Kern MD Cholesterol in HDL [Mass/Vol] 51 mg/dL Normal > OR = 50 [facility] Comment on above: Order Comment: FASTI NG:YES PATIENT UNABLE TO VOID; ADVISED TO RETURN FOR COLLECTION. FASTING: YES Performed By: #### 1 0165, 496, 5070 #### [facility] [address], [address] [place] [address] Visual Merchandising Associate: Mauricio Kern MD Cholesterol in LDL [Mass/Vol] [...] LDL-C. Sean BREAUX et al. SHRUTHI. 2013;310(19): 4037-3212 (http://[email or web address]/faq/KTC661) Performed By: #### 1 0165, 496, 1630 #### [facility] [address], [address] [place] [address] Visual Merchandising Associate: Mauricio Kern MD Cholesterol.total/C holesterol in HDL [Mass ratio] 3.2 {ratio} Normal <5.0 [facility] Comment on above: Order Comment: FASTI NG:YES PATIENT UNABLE TO VOID; ADVISED TO RETURN FOR COLLECTION. FASTING: YES Performed By: #### 1 0165, 496, 7600 #### [facility] [address], [address] [place] [address] Visual Merchandising Associate: Mauricio Kern MD NON HDL CHOLESTEROL 112 [...] 1 0165, 496, 7600 #### [facility] [address], [address] [place] [address] Visual Merchandising Associate: Mauricio Kern MD Triglyceride [Mass/Vol] 181 mg/dL High <150 [facility] Comment on above: Order Comment: FASTI NG:YES PATIENT UNABLE TO VOID; ADVISED TO RETURN FOR COLLECTION. FASTING: YES Performed By: #### 1 0165, 496, 7600 #### [facility] [address], [address] [place] [address] Visual Merchandising Associate: Mauricio Kern MD PTH INTACTon 03-31-2022 PTH, Intact 111 pg/mL Critically high 15-65 [facility] Comment on above: Performed By: #### M G, URIC, RENAL #### [facility] [id number] Nacho Jeffery FERRITINon 03-30-2022 Ferritin [Mass/Vol] 479.0 ng/mL Critically high 8.0-252.0 [facility] Comment on above: Performed By: #### M G, URIC, RENAL #### [facility] [address] [place], [place] [address] Dr. Nacho Jeffery HEMOGRAM AND PLATELon 2021 Hematocrit (Bld) [Volume fraction] 38.1 % Normal 36.0-48.0 [facility] Comment on above: Performed By: #### M G, URIC, RENAL #### [facility] [address] [address] [address] Nacho Jeffery Hemoglobin (Bld) [Mass/Vol] 12.9 g/dL Normal 12.0-16.0 [facility] Comment on above: Performed By: #### M G, URIC, RENAL #### [facility] [address] [address] [address] Nacho Jeffery MCH (RBC) [Entitic mass] 32.8 pg Normal 26.7-34.0 [facility] Comment on above: Performed By: #### M G, URIC, RENAL #### [facility] [address] [place] [address] Dr. Nacho Jeffery MCHC (RBC) [Mass/Vol] 33.9 g/dL Normal 29.9-35.2 [facility] Comment on above: Performed By: #### M G, URIC, RENAL #### [facility] [address] [place] [address] Dr. Nacho Jeffery MCV (RBC) [Entitic vol] 96.9 fL Normal 81.0-99.0 [facility] Comment on above: Performed By: #### M G, URIC, RENAL #### [facility] [address] [place] [address] Dr. Nacho Jeffery PLT 191 103/ul Normal 150-450 [facility] Comment on above: Performed By: #### M G, URIC, RENAL #### [facility] [address] [address] [address] Nacho Jeffery RBC 3.93 106/ul Critically low 4.20-5.40 [facility] Comment on above: Performed By: #### M G, URIC, RENAL #### [facility] [address] [place] [address] Dr. Nacho Jeffery WBC 7.2 103/ul Normal 4.0-11.0 [facility] Comment on above: Performed By: #### M G, URIC, RENAL #### [facility] [address] [place] [address] Dr. Nacho Jeffery IRON AND TIBCon 03-30-2022 % SATURATION 21.6 % Normal [facility] Comment on above: Performed By: #### M G, URIC, RENAL #### [facility] [address] [address] [address] Nacho Jeffery Iron [Mass/Vol] 63.0 ug/dL Normal 50.0-170.0 [facility] Comment on above: Performed By: #### M G, URIC, RENAL #### [facility] [address] [address] [address] Nacho Jeffery TIBC DIRECT 292.0 ug/dL Normal 250.0-450.0 [facility] Comment on above: Performed By: #### M G, URIC, RENAL #### [facility] [address] [address] [address] Nacho Jeffery MAGNESIUMon 03-30-2022 Magnesium [Mass/Vol] 1.7 mg/dL Critically low 1.8-2.4 [facility] Comment on above: Performed By: #### M G, URIC, RENAL #### [facility] [address] [address] [address] Nacho Jeffery RENAL FUNCTION PANELon 03-30 Albumin [Mass/Vol] 3.4 g/dL Normal 3.4-5.0 [facility] Comment on above: Performed By: #### M G, URIC, RENAL #### [facility] [address] [address] [address] Nacho Jeffery Calcium [Mass/Vol] 9.3 mg/dL Normal 8.5-10.1 [facility] Comment on above: Performed By: #### M G, URIC, RENAL #### [facility] [address] [address] [address] Nacho Jeffery Chloride [Moles/Vol] 102 mmol/L Normal 98-107 [facility] Comment on above: Performed By: #### M G, URIC, RENAL #### [facility] [address] [address] [address] Nacho Jeffery CO2 [Moles/Vol] 31.7 mmol/L Normal 21.0-32.0 [facility] Comment on above: Performed By: #### M G, URIC, RENAL #### [facility] [address] [address] [address] Nacho Jeffery Creatinine [Mass/Vol] 2.05 mg/dL Critically high 0.55-1.02 [facility] Comment on above: Performed By: #### M G, URIC, RENAL #### [facility] [address] [address] [address] Nacho Jeffery EGFR-AF ALBANIAN 28 mL/min/1.73m2 Critically low >=60 [facility] Comment on above: Performed By: #### M G, URIC, RENAL #### [facility] [address] [place] [address] Dr. Nacho Jeffery EGFR-NON AF ALBANIAN 23 mL/min/1.73m2 Critically low >=60 [facility] Comment on above: Performed By: #### M G, URIC, RENAL #### [facility] [address] [place] [address] Dr. Nacho Jeffery Glucose [Mass/Vol] 194 mg/dL Critically high 74-106 [facility] Comment on above: Performed By: #### M G, URIC, RENAL #### [facility] [address] [address] [address] Nacho Jeffery Phosphate [Mass/Vol] 3.2 mg/dL Normal 2.6-4.7 [facility] Comment on above: Performed By: #### M G, URIC, RENAL #### [facility] [address] [address] [address] Nacho Jeffery Potassium [Moles/Vol] 4.6 mmol/L Normal 3.5-5.1 [facility] Comment on above: Performed By: #### M G, URIC, RENAL #### [facility] [address] [address] [address] Nacho Jeffery Sodium [Moles/Vol] 141 mmol/L Normal 136-145 [facility] Comment on above: Performed By: #### M G, URIC, RENAL #### [facility] [address] [address] [address] Nacho Jeffery Urea nitrogen [Mass/Vol] 64.0 mg/dL Critically high 7.0-18.0 [facility] Comment on above: Performed By: #### M G, URIC, RENAL #### [facility] [address] [place] [address] Dr. Nacho Jeffery UA RANDOM W/MICROSCOPICon BACTERIA NONE SEEN Normal NONE SEEN The [facility] Comment on above: Performed By: #### M G, URIC, RENAL #### [facility] [address] [place] [address] Dr. Nacho Jeffery Bilirubin Ql (U) Negative Normal NEGATIVE [facility] Comment on above: Performed By: #### M G, URIC, RENAL #### [facility] [address] [place] [address] Dr. Nacho Jeffery CAST NONE SEEN Normal NONE SEEN The [facility] Comment on above: Performed By: #### M G, URIC, RENAL #### [facility] [address] [place] [address] Dr. Nacho Jeffery Clarity (U) CLEAR Normal CLEAR The [facility] Comment on above: Performed By: #### M G, URIC, RENAL #### [facility] [address] [place] [address] Dr. Nacho Jeffery Color (U) LT. YELLOW Normal YELLOW [facility] Comment on above: Performed By: #### M G, URIC, RENAL #### [facility] [address] [place] [address] Dr. Nacho Jeffery Crystals LM Nom (Urine sed) NONE SEEN Normal NONE SEEN The [facility] Comment on above: Performed By: #### M G, URIC, RENAL #### [facility] [address] [place] [address] Dr. Nacho Jeffery Epithelial cells LM Ql (Urine sed) FEW Abnormal NONE SEEN /RARE The [facility] Comment on above: Performed By: #### M G, URIC, RENAL #### [facility] [address] [place] [address] Dr. Nacho Jeffery Glucose Ql (U) Negative Normal NEGATIVE The [facility] Comment on above: Performed By: #### M G, URIC, RENAL #### [facility] [address] [address] [address] Nacho Jeffery Hemoglobin Ql (U) Negative Normal NEGATIVE The [facility] Comment on above: Performed By: #### M G, URIC, RENAL #### [facility] [address] [address] [address] Nacho Jeffery Ketones Ql (U) Negative Normal NEGATIVE The [facility] Comment on above: Performed By: #### M G, URIC, RENAL #### [facility] [address] [address] [address] Nacho Jeffery LEUKOCYTES SMALL Abnormal NEGATIVE [facility] Comment on above: Performed By: #### M G, URIC, RENAL #### [facility] [address] [address] [address] Nacho Jeffery MUCOUS NONE SEEN Normal NONE SEEN The [facility] Comment on above: Performed By: #### M G, URIC, RENAL #### [facility] [address] [address] [address] Nacho Jeffery Nitrite Ql (U) Negative Normal NEGATIVE [facility] Comment on above: Performed By: #### M G, URIC, RENAL #### [facility] [address] [address] [address] Nacho Jeffery pH (U) 5.5 [pH] Normal 5-9 [facility] Comment on above: Performed By: #### M G, URIC, RENAL #### [facility] [address] [address] [address] Nacho Jeffery RBC 0-2 Normal 0-2 [facility] Comment on above: Performed By: #### M G, URIC, RENAL #### [facility] [address] [address] [address] Nacho Jeffery SPEC GRAVITY 1.015 Normal 1.005-<=1.025 [facility] Comment on above: Performed By: #### M G, URIC, RENAL #### [facility] [address] [address] [address] Nacho Jeffery UA PROTEIN Negative Normal NEGATIVE/ TRACE [facility] Comment on above: Performed By: #### M G, URIC, RENAL #### [facility] [address] [address] [address] Nacho Jeffery Urobilinogen Qn (U) 0.2 {Zuleyka'U}/dL Normal 0.2 - 1. 0 [facility] Comment on above: Performed By: #### M G, URIC, RENAL #### [facility] [address] [address] [address] Nacho Jeffery WBC 5-10 Abnormal NONE SEEN The [facility] Comment on above: Performed By: #### M G, URIC, RENAL #### [facility] [address] [address] [address] Nacho Jeffery URIC ACID SERUMon 03-30-2022 Urate [Mass/Vol] 7.0 mg/dL Critically high 2.6-6.0 [facility] Comment on above: Performed By: #### M G, URIC, RENAL #### [facility] [address] [address] [address] Nacho Jeffery URINE T PROTEIN CREAT RATIOo n 03-30-2022 Protein (U) [Mass/Vol] 7.1 mg/dL Normal <=12.0 [facility] Comment on above: Performed By: #### U RTPCR #### [facility] [address] [address] [address] Nacho Jeffery UR PROT CREAT RAT 0.06 Normal The [facility] Comment on above: Performed By: #### U RTPCR #### [facility] [address] [address] [address] Nacho Jeffery URINE CREAT 113.23 mg/dL Normal 20.00-300.00 [facility] Comment on above: Performed By: #### U RTPCR #### [facility] [address] [address] [address] Nacho Jeffery VITAMIN D 25 OHon 03-30-2022 VIT D 25-OH 57.4 ng/mL Normal The [facility] Comment on above: Performed By: #### M G, URIC, RENAL #### [facility] [address] [place] [address] Dr. Nacho Jeffery VIT D RANGES SEE BELOW Normal The [facility] Comment on above: Result Comment: <20 ng/mL Vit D deficient 20 - <30 ng/mL Vit D insufficient 30 - 100 ng/mL Vit D sufficient >100 ng/mL Potential Toxicity Performed By: #### M G, URIC, RENAL #### [facility] [address] [address] [address] Nach[facility]ery [facility] 08-30-2021 Albumin [Mass/Vol] 3.7 g/dL Normal 3.6-5.1 [facility] Comment on above: Performed By: #### 1 0231, 7600 #### [facility] [address] [address] [employer] Merchandising Associate: Mauricio Kern MD Albumin/Globulin [Mass ratio] 1.4 {ratio} Normal 1.0-2.5 [facility] Comment on above: Performed By: #### 1 023, 7600 #### [facility] [address] [place] [address] Visual Merchandising Associate: Mauricio Kern MD ALP [Catalytic activity/Vol] 98 U/L Normal 37-153 [facility] Comment on above: Performed By: #### 1 0231, 7600 #### [facility] [address] [place] [address] Visual Merchandising Associate: Mauricio Kern MD ALT [Catalytic activity/Vol] 23 U/L Normal 6-29 [facility] Comment on above: Performed By: #### 1 0231, 7600 #### [facility] [address] [place] [address] Visual Merchandising Associate: Mauricio Kern MD AST [Catalytic activity/Vol] 22 U/L Normal 10-35 [facility] Comment on above: Performed By: #### 1 0231, 7600 #### [facility] [place] [address] Visual Merchandising Associate: Mauricio Kern MD Bilirubin [Mass/Vol] 0.4 mg/dL Normal 0.2-1.2 [facility] Comment on above: Performed By: #### 1 023, 7600 #### [facility] [address], [address] [place] [address] Visual Merchandising Associate: Mauricio Kern MD Calcium [Mass/Vol] 9.2 mg/dL Normal 8.6-10.4 [facility] Comment on above: Performed By: #### 1 023, 7600 #### [facility] [address] [place] [address] Visual Merchandising Associate: Mauricio Kern MD Chloride [Moles/Vol] 103 mmol/L Normal 98-110 [facility] Comment on above: Performed By: #### 1 023, 7600 #### [facility] [address] [place] [address] Visual Merchandising Associate: Mauricio Kern MD CO2 [Moles/Vol] 28 mmol/L Normal 20-32 [facility] Comment on above: Performed By: #### 1 023, 7600 #### [facility] [address] [place] [address] Visual Merchandising Associate: Mauricio Kern MD Creatinine [Mass/Vol] 2.22 mg/dL High 0.60-0.93 [facility] Comment on above: Result Comment: For patients >49 years of age, the reference limit for Creatinine is approximately 13% higher for people identified as -Belarusian. Performed By: #### 1 023, 7600 #### [facility] [address] [place] [address] Visual Merchandising Associate: Mauricio Kern MD eGFR NON-AFR. ALBANIAN 21 mL/min/1.73m2 Low > OR = 60 [facility] Comment on above: Performed By: #### 1 023, 7600 #### [facility] [address] [address] Visual Merchandising Associate: Mauricio Kern MD GFR/1.73 sq M.predicted among blacks MDRD (S/P/Bld) [Vol rate/Area] 24 mL/min/{1.73_m2} Low > OR = 60 [facility] Comment on above: Performed By: #### 1 023, 7600 #### [facility] [address] [place] [address] Visual Merchandising Associate: Mauricio Kern MD Globulin (S) [Mass/Vol] 2.7 g/dL Normal 1.9-3.7 [facility] Comment on above: Performed By: #### 1 230, 7600 #### [facility] [address] [place] [address] Visual Merchandising Associate: Mauricio Kern MD Glucose [Mass/Vol] 107 mg/dL High 65-99 [facility] Comment on above: Result Comment: Fasting reference interval For someone without known diabetes, a glucose value between 100 and 125 mg/dL is consistent with prediabetes and should be confirmed with a follow-up test. Performed By: #### 1 230, 0 #### [facility] [address] [place] [address] Visual Merchandising Associate: Mauricio Kern MD Potassium [Moles/Vol] 4.7 mmol/L Normal 3.5-5.3 [facility] Comment on above: Performed By: #### 1 230, 0 #### [facility] [address] [place] [address] Visual Merchandising Associate: Mauricio Kern MD Protein [Mass/Vol] 6.4 g/dL Normal 6.1-8.1 [facility] Comment on above: Performed By: #### 1 023, 7600 #### [facility] [place] [address] Visual Merchandising Associate: Mauricio Kern MD Sodium [Moles/Vol] 141 mmol/L Normal 135-146 [facility] Comment on above: Performed By: #### 1 023, 7600 #### [facility] [address] [place] [address] Visual Merchandising Associate: Mauricio Kern MD Urea nitrogen [Mass/Vol] 69 mg/dL High 7-25 [facility] Comment on above: Performed By: #### 1 0231, 7600 #### [facility] [address], [address] [place] [address] Visual Merchandising Associate: Mauricio Kern MD Urea nitrogen/Creatinine [Mass ratio] 31 mg/mg High 05-03 [facility] Comment on above: Performed By: #### 1 023, 7600 #### [facility] [address], [address] [place] [address] Visual Merchandising Associate: Mauricio Kern MD LIPID PANEL, [address] [address] Cholesterol [Mass/Vol] 142 mg/dL Normal <200 [facility] Comment on above: Order Comment: FASTI NG:YES FASTING: YES Performed By: #### 1 023, 7600 #### [facility] [address], [address] [place] [address] Visual Merchandising Associate: Mauricio Kern MD Cholesterol in HDL [Mass/Vol] 47 mg/dL Low > OR = 50 [facility] Comment on above: Order Comment: FASTI NG:YES FASTING: YES Performed By: #### 1 023, 7600 #### [facility] [address], [address] [place] [address] Visual Merchandising Associate: Mauricio Kern MD Cholesterol in LDL [Mass/Vol] [...] LDL-C. Sean BREAUX et al. SHRUTHI. 2013;310(19): 0633-1953 (http://[email or web address]/faq/SEU214) Performed By: #### 1 023, 7600 #### [facility] [address], [address] [place] [address] Visual Merchandising Associate: Mauricio Kern MD Cholesterol.total/C holesterol in HDL [Mass ratio] 3.0 {ratio} Normal <5.0 [facility] Comment on above: Order Comment: FASTI NG:YES FASTING: YES Performed By: #### 1 230, 0 #### [facility] [address], [address] [place] [address] Visual Merchandising Associate: Mauricio Kern MD NON HDL CHOLESTEROL 95 mg/dL (calc) Normal <130 [facility] Comment on above: Order Comment: FASTI NG:YES FASTING: YES Result Comment: For patients with diabetes plus 1 major ASCVD risk factor, treating to a non-HDL-C goal of <100 mg/dL (LDL-C of <70 mg/dL) is considered a therapeutic option. Performed By: #### 1 230, 0 #### [facility] [address], [address] [place] [address] Visual Merchandising Associate: Mauricio Kern MD Triglyceride [Mass/Vol] 188 mg/dL High <150 [facility] Comment on above: Order Comment: FASTI NG:YES FASTING: YES Performed By: #### 1 230, 7599 #### [facility] [address], [address] [place] [address] Visual Merchandising Associate: Mauricio Kern MD BASIC METABOLIC PANELon 05- Calcium [Mass/Vol] 10.0 mg/dL Normal 8.6-10.3 [facility] Comment on above: Performed By: #### 0 0071 #### [facility] [address] [place] [address], [place] Chloride [Moles/Vol] 101 mmol/L Normal 98-107 [facility] Comment on above: Performed By: #### 0 0071 #### [facility] [address] [place] [address], [place] CO2 [Moles/Vol] 28 mmol/L Normal 21-31 [facility] Comment on above: Performed By: #### 0 0071 #### [facility] [address] [place] [address], [place] Creatinine [Mass/Vol] 1.96 mg/dL High 0.60-1.20 [facility] Comment on above: Performed By: #### 0 0071 #### [facility] [address] [place] [address], [facility] eGFR- 30 ml/min/1.73sq m Abnormal >60 [facility] Comment on above: Result Comment: Calc ulation may not be valid for patients over 70 years Performed By: #### 0 0071 #### [facility] [address] [place] [address], [facility] eGFR- non- 24 ml/min/1.73sq m Abnormal >60 [facility] Comment on above: Result Comment: Calc ulation may not be valid for patients over 70 years Performed By: #### 0 0071 #### [facility] [address] [place] [address], [facility] Glucose [Mass/Vol] 171 mg/dL High 70-100 [facility] Comment on above: Performed By: #### 0 0071 #### [facility] [address] [place] [address], [facility] Potassium [Moles/Vol] 3.9 mmol/L Normal 3.5-5.1 [facility] Comment on above: Performed By: #### 0 0071 #### [facility] [address] [place] [address], [facility] Sodium [Moles/Vol] 139 mmol/L Normal 136-145 [facility] Comment on above: Performed By: #### 0 0071 #### [facility] [address] [place] [address], [facility] Urea nitrogen [Mass/Vol] 66 mg/dL High 7-25 [facility] Comment on above: Performed By: #### 0 0071 #### [facility] [address] [place] [id number], [facility] Cardiovascular Lab Reporton 03-30-2021 Cardiovascular Lab Report [facility] Patient Name: Adore Dugan [facility] MR #: [id number] Physician: Moe Parham, Department of M.D. Medicine Service Date: 03/30/2021 Division of Birthdate: 1940 Cardiology Room #: Adult Cardiovascular Services [facility] [address] [place], [place] [address] Cardiovascular Laboratory Report FINAL IMPRESSIONS: 1. Moderate [...] enzyme inhibitor/receptor micki. 4. Follow up with [facility] Cardiology in the next 2 to 3 [...] the left radial artery was obtained. A 6-Japanese glide sheath was inserted without difficulty. Bilateral selective coronary angiography was performed using JL4 and a 4-Japanese 3DRC catheter. After reviewing the images and [...] Parham M.D. Date Trans: 03/30/2021 03:19 P/molly [id number] cc: Fernie Hackett M.D. [address], [address] [place] [id number] [facility] Vital Signs Date Time Vital Sign Value Performing Clinician Facility 11-04-2024 09:42-0500 Body height 165.1 cm [facility] 11-04-2024 09:42-0500 Body mass index (BMI) [Ratio] 45.26 kg/m2 [facility] 11-04-2024 09:42-0500 Body temperature 97.5 [degF] Pfo 1 [facility] 11-04-2024 09:42-0500 Body weight 123.38 kg [facility] 1 [facility] 11-04-2024 09:42-0500 Diastolic blood pressure 65 mm[Hg] [facility] 11-04-2024 09:42-0500 Heart rate 65 /min [facility] 11-04-2024 09:42-0500 Respiratory rate 18 /min Pfo 1 [facility] 11-04-2024 09:42-0500 SaO2% (BldA) [Mass fraction] 98 % [facility] 1 [facility] 11-04-2024 09:42-0500 Systolic blood pressure 153 mm[Hg] [facility] 1 [facility] 10-07-2024 09:29-0500 Body height 165.1 cm [facility] 2 [facility] 10-07-2024 09:29-0500 Body mass index (BMI) [Ratio] 45.26 kg/m2 [facility] 10-07-2024 09:29-0500 Body temperature 97.59 [degF] Pfo 2 [facility] 10-07-2024 09:29-0500 Body weight 123.38 kg P[facility] 2 [facility] 10-07-2024 09:29-0500 Diastolic blood pressure 63 mm[Hg] [facility] 2 [facility] 10-07-2024 09:29-0500 Heart rate 72 /min [facility] 10-07-2024 09:29-0500 Respiratory rate 18 /min Pfo 2 [facility] 10-07-2024 09:29-0500 SaO2% (BldA) [Mass fraction] 94 % [facility] 2 [facility] 10-07-2024 09:29-0500 Systolic blood pressure 155 mm[Hg] Pfo 2 [facility] 10-01-2024 09:24-0500 Body height 165.1 cm P[facility] 5 [facility] 10-01-2024 09:24-0500 Body mass index (BMI) [Ratio] 45.26 kg/m2 P[facility] 5 [facility] 10-01-2024 09:24-0500 Body temperature 97.39 [degF] Pfo 5 [facility] 10-01-2024 09:24-0500 Body weight 123.38 kg Pfo 5 [facility] 10-01-2024 09:24-0500 Diastolic blood pressure 56 mm[Hg] [facility] 5 [facility] 10-01-2024 09:24-0500 Heart rate 76 /min [facility] 5 [facility] 10-01-2024 09:24-0500 Respiratory rate 16 /min Pfo 5 [facility] 10-01-2024 09:24-0500 SaO2% (BldA) [Mass fraction] 96 % [facility] 5 [facility] 10-01-2024 09:24-0500 Systolic blood pressure 153 mm[Hg] Pfo 5 [facility] 09-10-2024 09:21-0400 Body temperature 97.7 [degF] Pfo 5 [facility] 09-10-2024 09:21-0400 Diastolic blood pressure 61 mm[Hg] P[facility] 5 [facility] 09-10-2024 09:21-0400 Heart rate 68 /min [facility] 09-10-2024 09:21-0400 Respiratory rate 18 /min Pfo 5 [facility] 09-10-2024 09:21-0400 SaO2% (BldA) [Mass fraction] 99 % [facility] 5 [facility] 09-10-2024 09:21-0400 Systolic blood pressure 164 mm[Hg] P[facility] 5 [facility] 08-27-2024 09:27-0400 Body height 165.1 cm [facility] 5 [facility] 08-27-2024 09:27-0400 Body mass index (BMI) [Ratio] 46.1 kg/m2 [facility] 5 [facility] 08-27-2024 09:27-0400 Body temperature 97.39 [degF] Pfo 5 [facility] 08-27-2024 09:27-0400 Body weight 125.65 kg Pfo 5 [facility] 08-27-2024 09:27-0400 Diastolic blood pressure 86 mm[Hg] P[facility] 5 [facility] 08-27-2024 09:27-0400 Heart rate 75 /min P[facility] 5 [facility] 08-27-2024 09:27-0400 Respiratory rate 16 /min Pfo 5 [facility] 08-27-2024 09:27-0400 SaO2% (BldA) [Mass fraction] 98 % [facility] 5 [facility] 08-27-2024 09:27-0400 Systolic blood pressure 151 mm[Hg] P[facility] 5 [facility] 08-20-2024 09:17-0400 Body height 165.1 cm [facility] 08-20-2024 09:17-0400 Body mass index (BMI) [Ratio] 46.1 kg/m2 [facility] 08-20-2024 09:17-0400 Body temperature 97.59 [degF] Pfo 5 [facility] 08-20-2024 09:17-0400 Body weight 125.65 kg P[facility] 5 [facility] 08-20-2024 09:17-0400 Diastolic blood pressure 67 mm[Hg] [facility] 5 [facility] 08-20-2024 09:17-0400 Heart rate 66 /min [facility] 5 [facility] 08-20-2024 09:17-0400 Respiratory rate 16 /min Pfo 5 [facility] 08-20-2024 09:17-0400 SaO2% (BldA) [Mass fraction] 99 % [facility] 5 [facility] 08-20-2024 09:17-0400 Systolic blood pressure 167 mm[Hg] Pfo 5 [facility] 08-13-2024 09:20-0400 Body height 165.1 cm Pfo 4 [facility] 08-13-2024 09:20-0400 Body mass index (BMI) [Ratio] 46.1 kg/m2 P[facility] 4 [facility] 08-13-2024 09:20-0400 Body temperature 97.59 [degF] Pfo 4 [facility] 08-13-2024 09:20-0400 Body weight 125.65 kg Pfo 4 [facility] 08-13-2024 09:20-0400 Diastolic blood pressure 65 mm[Hg] Pfo 4 [facility] 08-13-2024 09:20-0400 Heart rate 70 /min Pfo 4 [facility] 08-13-2024 09:20-0400 Respiratory rate 16 /min Pfo 4 [facility] 08-13-2024 09:20-0400 SaO2% (BldA) [Mass fraction] 96 % P[facility] 4 [facility] 08-13-2024 09:20-0400 Systolic blood pressure 169 mm[Hg] Pfo 4 [facility] 05-01-2024 13:52-0400 Body height 165.1 cm [facility] 05-01-2024 13:52-0400 Body mass index (BMI) [Ratio] 47.5 kg/m2 [facility] 05-01-2024 13:52-0400 Body temperature 96.7 [degF] [facility] 05-01-2024 13:52-0400 Body weight 129.38 kg [facility] 05-01-2024 13:52-0400 Diastolic blood pressure 60 mm[Hg] [facility] 05-01-2024 13:52-0400 Heart rate 76 /min [facility] 05-01-2024 13:52-0400 Respiratory rate 18 /min [facility] 05-01-2024 13:52-0400 SaO2% (BldA) [Mass fraction] 95 % [facility] 05-01-2024 13:52-0400 Systolic blood pressure 130 mm[Hg] [facility] 02-13-2024 09:26-0400 Body height 165.1 cm Pfo 6 [facility] 02-13-2024 09:26-0400 Body mass index (BMI) [Ratio] 44.6 kg/m2 P[facility] 6 [facility] 02-13-2024 09:26-0400 Body temperature 97.7 [degF] Pfo 6 [facility] 02-13-2024 09:26-0400 Body weight 121.56 kg Pfo 6 [facility] 02-13-2024 09:26-0400 Diastolic blood pressure 60 mm[Hg] P[facility] 6 [facility] 02-13-2024 09:26-0400 Heart rate 60 /min P[facility] 6 [facility] 02-13-2024 09:26-0400 Respiratory rate 18 /min Pfo 6 [facility] 02-13-2024 09:26-0400 SaO2% (BldA) [Mass fraction] 94 % P[facility] 6 [facility] 02-13-2024 09:26-0400 Systolic blood pressure 162 mm[Hg] Pfo 6 [facility] 02-06-2024 09:30-0400 Body height 165.1 cm Pfo 6 [facility] 02-06-2024 09:30-0400 Body mass index (BMI) [Ratio] 44.6 kg/m2 [facility] 6 [facility] 02-06-2024 09:30-0400 Body temperature 97.9 [degF] Pfo 6 [facility] 02-06-2024 09:30-0400 Body weight 121.56 kg Pfo 6 [facility] 02-06-2024 09:30-0400 Diastolic blood pressure 75 mm[Hg] Pfo 6 [facility] 02-06-2024 09:30-0400 Heart rate 60 /min P[facility] 6 [facility] 02-06-2024 09:30-0400 Respiratory rate 188 /min Pfo 6 [facility] 02-06-2024 09:30-0400 SaO2% (BldA) [Mass fraction] 98 % [facility] 6 [facility] 02-06-2024 09:30-0400 Systolic blood pressure 176 mm[Hg] Pfo 6 [facility] 01-30-2024 09:25-0400 Body height 165.1 cm Pfo 6 [facility] 01-30-2024 09:25-0400 Body mass index (BMI) [Ratio] 44.93 kg/m2 [facility] 6 [facility] 01-30-2024 09:25-0400 Body temperature 97.7 [degF] Pfo 6 [facility] 01-30-2024 09:25-0400 Body weight 122.47 kg Pfo 6 [facility] 01-30-2024 09:25-0400 Diastolic blood pressure 60 mm[Hg] [facility] 6 [facility] 01-30-2024 09:25-0400 Heart rate 56 /min [facility] 6 [facility] [facility]2024 09:25-0400 Respiratory rate 18 /min Pfo 6 [facility] 01-30-2024 09:25-0400 SaO2% (BldA) [Mass fraction] 93 % [facility] 01-30-2024 09:25-0400 Systolic blood pressure 168 mm[Hg] [facility] 01-23-2024 09:33-0400 Body height 165.1 cm [facility] 6 [facility] 01-23-2024 09:33-0400 Body mass index (BMI) [Ratio] 45.93 kg/m2 [facility] 01-23-2024 09:33-0400 Body temperature 97.39 [degF] Pfo 6 [facility] 01-23-2024 09:33-0400 Body weight 125.19 kg P[facility] 6 [facility] 01-23-2024 09:33-0400 Diastolic blood pressure 73 mm[Hg] [facility] 6 [facility] 01-23-2024 09:33-0400 Heart rate 66 /min [facility] 6 [facility] 01-23-2024 09:33-0400 Respiratory rate 18 /min Pfo 6 [facility] 01-23-2024 09:33-0400 SaO2% (BldA) [Mass fraction] 98 % [facility] 6 [facility] 01-23-2024 09:33-0400 Systolic blood pressure 180 mm[Hg] [facility] 6 [facility] 01-16-2024 09:24-0500 Body height 165.1 cm P[facility] 6 [facility] 01-16-2024 09:24-0500 Body mass index (BMI) [Ratio] 46.1 kg/m2 [facility] 6 [facility] 01-16-2024 09:24-0500 Body temperature 98.01 [degF] Pfo 6 [facility] 01-16-2024 09:24-0500 Body weight 125.65 kg P[facility] 6 [facility] 01-16-2024 09:24-0500 Diastolic blood pressure 80 mm[Hg] [facility] 6 [facility] 01-16-2024 09:24-0500 Heart rate 71 /min [facility] 6 [facility] 01-16-2024 09:24-0500 Respiratory rate 18 /min Pfo 6 [facility] 01-16-2024 09:24-0500 SaO2% (BldA) [Mass fraction] 97 % [facility] 6 [facility] 01-16-2024 09:24-0500 Systolic blood pressure 180 mm[Hg] [facility] 6 [facility] 01-09-2024 09:36-0500 Body height 165.1 cm [facility] 3 [facility] 01-09-2024 09:36-0500 Body mass index (BMI) [Ratio] 46.1 kg/m2 [facility] 3 [facility] 01-09-2024 09:36-0500 Body temperature 97.9 [degF] Pfo 3 [facility] 01-09-2024 09:36-0500 Body weight 125.65 kg Pfo 3 [facility] 01-09-2024 09:36-0500 Diastolic blood pressure 75 mm[Hg] [facility] 3 [facility] 01-09-2024 09:36-0500 Heart rate 70 /min [facility] 3 [facility] 01-09-2024 09:36-0500 Respiratory rate 18 /min Pfo 3 [facility] 01-09-2024 09:36-0500 SaO2% (BldA) [Mass fraction] 97 % [facility] 3 [facility] 01-09-2024 09:36-0500 Systolic blood pressure 180 mm[Hg] [facility] 3 [facility] 01-02-2024 09:37-0500 Body temperature 98.01 [degF] Pfo 4 [facility] 01-02-2024 09:37-0500 Diastolic blood pressure 72 mm[Hg] [facility] 4 [facility] 01-02-2024 09:37-0500 Heart rate 62 /min P[facility] 4 [facility] 01-02-2024 09:37-0500 Respiratory rate 18 /min Pfo 4 [facility] 01-02-2024 09:37-0500 SaO2% (BldA) [Mass fraction] 95 % [facility] 4 [facility] 01-02-2024 09:37-0500 Systolic blood pressure 184 mm[Hg] Pfo 4 [facility] 12-26-2023 09:37-0500 Body height 165.1 cm P[facility] 4 [facility] 12-26-2023 09:37-0500 Body mass index (BMI) [Ratio] 46.1 kg/m2 P[facility] 4 [facility] 12-26-2023 09:37-0500 Body temperature 97.7 [degF] Pfo 4 [facility] 12-26-2023 09:37-0500 Body weight 125.65 kg P[facility] 4 [facility] 12-26-2023 09:37-0500 Diastolic blood pressure 64 mm[Hg] [facility] 4 [facility] 12-26-2023 09:37-0500 Heart rate 67 /min [facility] 4 [facility] 12-26-2023 09:37-0500 Respiratory rate 18 /min Pfo 4 [facility] 12-26-2023 09:37-0500 SaO2% (BldA) [Mass fraction] 96 % [facility] 4 [facility] 12-26-2023 09:37-0500 Systolic blood pressure 177 mm[Hg] P[facility] 4 [facility] 12-19-2023 09:30-0500 Body height 165.1 cm P[facility] 2 [facility] 12-19-2023 09:30-0500 Body mass index (BMI) [Ratio] 46.13 kg/m2 P[facility] 2 [facility] 12-19-2023 09:30-0500 Body temperature 97.39 [degF] Pfo 2 [facility] 12-19-2023 09:30-0500 Body weight 125.74 kg P[facility] 2 [facility] 12-19-2023 09:30-0500 Diastolic blood pressure 67 mm[Hg] [facility] 2 [facility] 12-19-2023 09:30-0500 Heart rate 67 /min [facility] 2 [facility] 12-19-2023 09:30-0500 Respiratory rate 18 /min Pfo 2 [facility] 12-19-2023 09:30-0500 SaO2% (BldA) [Mass fraction] 97 % [facility] 2 [facility] 12-19-2023 09:30-0500 Systolic blood pressure 196 mm[Hg] P[facility] 2 [facility] 12-12-2023 09:25-0500 Body height 165.1 cm P[facility] 2 [facility] 12-12-2023 09:25-0500 Body mass index (BMI) [Ratio] 45.43 kg/m2 P[facility] 2 [facility] 12-12-2023 09:25-0500 Body temperature 97.5 [degF] Pfo 2 [facility] 12-12-2023 09:25-0500 Body weight 123.83 kg Pfo 2 [facility] 12-12-2023 09:25-0500 Diastolic blood pressure 71 mm[Hg] [facility] 2 [facility] 12-12-2023 09:25-0500 Heart rate 70 /min [facility] 2 [facility] 12-12-2023 09:25-0500 Respiratory rate 18 /min Pfo 2 [facility] 12-12-2023 09:25-0500 SaO2% (BldA) [Mass fraction] 98 % [facility] 2 [facility] 12-12-2023 09:25-0500 Systolic blood pressure 166 mm[Hg] P[facility] 2 [facility] 11-28-2023 09:17-0500 Body height 165.1 cm P[facility] 1 [facility] 11-28-2023 09:17-0500 Body mass index (BMI) [Ratio] 44.93 kg/m2 P[facility] 1 [facility] 11-28-2023 09:17-0500 Body temperature 97.2 [degF] Pfo 1 [facility] 11-28-2023 09:17-0500 Body weight 122.47 kg Pfo 1 [facility] 11-28-2023 09:17-0500 Diastolic blood pressure 56 mm[Hg] P[facility] 1 [facility] 11-28-2023 09:17-0500 Heart rate 79 /min Pfo 1 [facility] 11-28-2023 09:17-0500 Respiratory rate 18 /min Pfo 1 [facility] 11-28-2023 09:17-0500 SaO2% (BldA) [Mass fraction] 99 % Pfo 1 [facility] 11-28-2023 09:17-0500 Systolic blood pressure 156 mm[Hg] Pfo 1 [facility] 11-21-2023 10:01-0500 Body height 165.1 cm Pfo 1 [facility] 11-21-2023 10:01-0500 Body mass index (BMI) [Ratio] 44.6 kg/m2 P[facility] 1 [facility] 11-21-2023 10:01-0500 Body temperature 97.81 [degF] Pfo 1 [facility] 11-21-2023 10:01-0500 Body weight 121.56 kg Pfo 1 [facility] 11-21-2023 10:01-0500 Diastolic blood pressure 52 mm[Hg] P[facility] 1 [facility] 11-21-2023 10:01-0500 Heart rate 62 /min Pfo 1 [facility] 11-21-2023 10:01-0500 Respiratory rate 18 /min Pfo 1 [facility] 11-21-2023 10:01-0500 SaO2% (BldA) [Mass fraction] 94 % Pfo 1 [facility] 11-21-2023 10:01-0500 Systolic blood pressure 122 mm[Hg] Pfo 1 [facility] 11-16-2023 09:00-0500 Body temperature 96.6 [degF] DO [employer] Work Phone: [facility] 11-16-2023 09:00-0500 Diastolic blood pressure 74 mm[Hg] DO Fernie Furlong Work Phone: [facility] 11-16-2023 09:00-0500 Heart rate 71 /min DO Fernie Furlong Work Phone: [facility] 11-16-2023 09:00-0500 Respiratory rate 18 /min DO Fernie Furlong Work Phone: [facility] 11-16-2023 09:00-0500 SaO2% (BldA) [Mass fraction] 97 % DO Fernie Furlong Work Phone: [facility] 11-16-2023 09:00-0500 Systolic blood pressure 148 mm[Hg] DO Fernie Hackett Work Phone: [facility] 08-23-2023 12:20-0400 Body height 165.1 cm Gia Tammy Other [employer] Other 08-23-2023 12:20-0400 Body mass index (BMI) [Ratio] 44.09 kg/m2 Gia Tammy Other [employer] Other 08-23-2023 12:20-0400 Body temperature 96.6 [degF] Gia Tammy Other [employer] Other 08-23-2023 12:20-0400 Body weight 120.2 kg Gia Tammy Other [employer] Other 08-23-2023 12:20-0400 Diastolic blood pressure 86 mm[Hg] Gia Tammy Other [employer] Other 08-23-2023 12:20-0400 Respiratory rate 18 /min Gia Tammy Other [employer] Other 08-23-2023 12:20-0400 SaO2% (BldA) [Mass fraction] 96 % Gia Tammy Other [employer] Other 08-23-2023 12:20-0400 Systolic blood pressure 138 mm[Hg] Gia Tammy Other [employer] Other 01-25-2023 12:20-0400 Body height 165.1 cm Gia Tammy Other [employer] Other 01-25-2023 12:20-0400 Body mass index (BMI) [Ratio] 45.76 kg/m2 Gia Tammy Other [employer] Other 01-25-2023 12:20-0400 Body temperature 96.7 [degF] Gia Tammy Other [employer] Other 01-25-2023 12:20-0400 Body weight 124.74 kg Gia Tammy Other [employer] Other 01-25-2023 12:20-0400 Diastolic blood pressure 80 mm[Hg] Gia Tammy Other [employer] Other 01-25-2023 12:20-0400 Respiratory rate 18 /min Gia Tammy Other [employer] Other 01-25-2023 12:20-0400 SaO2% (BldA) [Mass fraction] 96 % Gia Tammy Other [employer] Other 01-25-2023 12:20-0400 Systolic blood pressure 139 mm[Hg] Gia Tammy Other [employer] Other 07-20-2022 13:00-0400 Body height 165.1 cm Gia Tammy Other [employer] Other 07-20-2022 13:00-0400 Body temperature 96 [degF] Gia Tammy Other [employer] Other 07-20-2022 13:00-0400 Diastolic blood pressure 71 mm[Hg] Gia Tmamy Other [employer] Other 07-20-2022 13:00-0400 Respiratory rate 18 /min Gia Tammy Other [employer] Other 07-20-2022 13:00-0400 SaO2% (BldA) [Mass fraction] 96 % Gia Tammy Other [employer] Other 07-20-2022 13:00-0400 Systolic blood pressure 134 mm[Hg] Gia Tammy Other [employer] Other 04-06-2022 12:00-0400 Body height 165.1 cm Gia Tammy Other [employer] Other 04-06-2022 12:00-0400 Body mass index (BMI) [Ratio] 46.32 kg/m2 Gia Tammy Other [employer] Other 04-06-2022 12:00-0400 Body temperature 98 [degF] Gia Tammy Other [employer] Other 04-06-2022 12:00-0400 Body weight 126.28 kg Gia Tammy Other [employer] Other 04-06-2022 12:00-0400 Diastolic blood pressure 70 mm[Hg] Gia Tammy Other [employer] Other 04-06-2022 12:00-0400 Respiratory rate 20 /min Gia Tammy Other [employer] Other 04-06-2022 12:00-0400 SaO2% (BldA) [Mass fraction] 93 % Gia Tammy Other [employer] Other 04-06-2022 12:00-0400 Systolic blood pressure 122 mm[Hg] Gia Tammy Other [employer] Other 12-27-2021 16:20-0500 Body height 165.1 cm Gia Tammy Other [employer] Other 12-27-2021 16:20-0500 Body mass index (BMI) [Ratio] 46.29 kg/m2 Gia Tammy Other [employer] Other 12-27-2021 16:20-0500 Body temperature 96.2 [degF] Gia Tammy Other [employer] Other 12-27-2021 16:20-0500 Body weight 126.19 kg Gia Tammy Other [employer] Other 12-27-2021 16:20-0500 Diastolic blood pressure 78 mm[Hg] Gia Tammy Other [employer] Other 12-27-2021 16:20-0500 Respiratory rate 20 /min Gia Tammy Other [employer] Other 12-27-2021 16:20-0500 SaO2% (BldA) [Mass fraction] 95 % Gia Tammy Other [employer] Other 12-27-2021 16:20-0500 Systolic blood pressure 161 mm[Hg] Gia Tammy Other [facility] Other Encounters Encounter Date Encounter Type Care Provider Facility Start: 11-24-2024 End: 11-24-2024 Telephone encounter Fernie Hackett DO Work Phone: [facility] Start: 11-20-2024 End: 11-20-2024 ambulatory Fernie Hackett DO Work Phone: [facility] Work Phone: Start: 11-20-2024 End: 11-20-2024 Departed Referred Fernie Hackett DO Work Phone: [facility] Start: 11-18-2024 End: 11-18-2024 Orders Only Fannie hu [facility] Medical Oncology Comment on above: Hypomagnesemia (Prim fara Dx) Start: 11-17-2024 End: 11-19-2024 Telephone encounter Fernie Hackett DO [facility] Start: 11-17-2024 End: 11-17-2024 ambulatory FERNIE Ricketts [facility] Start: 11-10-2024 End: 11-10-2024 ambulatory [facility] Start: 11-04-2024 End: 11-04-2024 ambulatory Pfo Infusion Bed 1 Elida hu [facility] Oncology Comment on above: Hypomagnesemia (Prim fara Dx) Start: 11-03-2024 End: 11-03-2024 Refill Fernie Hackett DO Work Phone: [facility] Start: 11-03-2024 End: 11-03-2024 Orders Only Fernie Hackett DO Work Phone: [facility] Start: 11-03-2024 End: 11-03-2024 ambulatory Christian Curtis MD Facility:[facility] Start: 10-27-2024 End: 10-27-2024 [facility] Start: 10-20-2024 End: 10-20-2024 Documentation procedure Clara Lira [facility] - Medical Oncology Start: 10-20-2024 End: 10-20-2024 [facility] Start: 10-13-2024 End: 10-13-2024 [facility] Start: 10-07-2024 End: 10-14-2024 Refill Fernie Hackett DO Work Phone: [facility] Start: 10-07-2024 End: 10-07-2024 ambulatory Pfo Infusion Chair 2 Elida Ireland [facility] - Medical Oncology Comment on above: Hypomagnesemia (Prim fara Dx) Start: 10-06-2024 End: 10-06-2024 [facility] Start: 10-01-2024 End: 10-01-2024 ambulatory Pfo Infusion Chair 5 Elida Ireland [facility] - Medical Oncology Comment on above: Hypomagnesemia (Prim fara Dx) Start: 09-29-2024 End: 09-29-2024 [facility] Start: 09-27-2024 End: 09-27-2024 Orders Only Fernie Hackett DO [facility] Start: 09-26-2024 End: 09-26-2024 Evaluation and management of inpatient [facility] Start: 09-22-2024 End: 09-22-2024 [facility] Start: 09-15-2024 End: 09-15-2024 [facility] Start: 09-11-2024 End: 09-11-2024 Refill Fernie Hackett DO Work Phone: [facility] Start: 09-10-2024 End: 09-10-2024 Telephone encounter Nina Mcgee [facility] Comment on above: EMG NEW PATIENT Start: 09-10-2024 End: 09-10-2024 ambulatory Pfo Infusion Chair 5 Elida Ireland [facility] Medical Oncology Comment on above: Hypomagnesemia (Prim fara Dx) Start: 09-08-2024 End: 09-08-2024 ambulatory [facility] Start: 09-04-2024 End: 09-04-2024 Orders Only Fernie Hackett DO Work Phone: [facility] Comment on above: Paresthesia of right lower extremity (Primary Dx); Ross's esophagus with dysplasia Start: 09-01-2024 End: 09-01-2024 Documentation procedure Americo Lira [facility] Medical Oncology Start: 09-01-2024 End: 09-01-2024 ambulatory [facility] Start: 08-27-2024 End: 08-27-2024 ambulatory Pfo Infusion Chair 5 Elida Ireland [facility] Medical Oncology Comment on above: Hypomagnesemia (Prim fara Dx) Start: 08-25-2024 End: 08-25-2024 [facility] Start: 08-22-2024 End: 08-25-2024 Refill Fernie Hackett DO Work Phone: [facility] Comment on above: 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 ([facility]) (Primary Dx); Morbid obesity ([facility]) Start: 08-20-2024 End: 08-20-2024 ambulatory Pfo Infusion Chair 5 Elida Ireland [facility] Medical Oncology Comment on above: Hypomagnesemia (Prim fara Dx) Start: 08-18-2024 End: 08-18-2024 ambulatory [facility] Start: 08-13-2024 End: 08-13-2024 ambulatory Pfo Infusion Chair 4 Elida Ireland [facility] - Medical Oncology Comment on above: Hypomagnesemia (Prim fara Dx) Start: 08-11-2024 End: 08-11-2024 ambulatory [facility] Start: 08-06-2024 End: 08-06-2024 ambulatory [facility] Start: 08-04-2024 End: 08-04-2024 ambulatory [facility] Start: 07-30-2024 End: 07-30-2024 ambulatory [facility] Start: 07-28-2024 End: 07-28-2024 ambulatory [facility] Start: 07-28-2024 End: 07-28-2024 ambulatory Christian Curtis MD Facility: [facility] Start: 07-23-2024 End: 07-23-2024 ambulatory [facility] Start: 07-21-2024 End: 07-21-2024 ambulatory [facility] Start: 07-16-2024 End: 07-16-2024 ambulatory [facility] Start: 07-15-2024 End: 07-15-2024 ambulatory [facility] Start: 07-09-2024 End: 07-09-2024 ambulatory [facility] Start: 07-07-2024 End: 07-07-2024 ambulatory [facility] Start: 07-02-2024 End: 07-02-2024 ambulatory [facility] Start: 06-30-2024 End: 06-30-2024 ambulatory [facility] Start: 06-25-2024 End: 06-25-2024 ambulatory [facility] Start: 06-23-2024 End: 06-23-2024 ambulatory [facility] Start: 06-18-2024 End: 06-18-2024 ambulatory [facility] Start: 06-16-2024 End: 06-16-2024 ambulatory [facility] Start: 06-11-2024 End: 06-11-2024 ambulatory [facility] Start: 06-09-2024 End: 06-09-2024 ambulatory [facility] Start: 06-04-2024 End: 06-04-2024 ambulatory [facility] Start: 06-02-2024 End: 06-02-2024 ambulatory [facility] Start: 05-30-2024 End: 05-30-2024 ambulatory [facility] Start: 05-28-2024 End: 05-28-2024 ambulatory [facility] Start: 05-27-2024 End: 05-27-2024 ambulatory [facility] Start: 05-27-2024 End: 05-27-2024 ambulatory [facility] Start: 05-26-2024 End: 05-26-2024 ambulatory [facility] Start: 05-21-2024 End: 05-21-2024 ambulatory [facility] Start: 05-19-2024 End: 05-19-2024 ambulatory [facility] Start: 05-14-2024 End: 05-14-2024 ambulatory [facility] Start: 05-12-2024 End: 05-12-2024 ambulatory [facility] Start: 05-07-2024 End: 05-07-2024 ambulatory [facility] Start: 05-05-2024 End: 05-05-2024 ambulatory [facility] Start: 05-01-2024 End: 05-01-2024 ambulatory [facility] Work Phone: Start: 05-01-2024 End: 05-01-2024 Patient encounter procedure [facility] Nephrology Tod Work Phone: Start: 04-30-2024 End: 04-30-2024 ambulatory [facility] Start: 04-28-2024 Non-patient / Non-visit [facility] Nephrology Work Phone: Start: 04-28-2024 End: 04-28-2024 ambulatory [facility] Start: 04-23-2024 End: 04-23-2024 ambulatory [facility] Start: 04-21-2024 End: 04-21-2024 ambulatory [facility] Start: 04-16-2024 End: 04-16-2024 ambulatory [facility] Start: 04-14-2024 End: 04-14-2024 ambulatory [facility] Start: 04-09-2024 End: 04-09-2024 ambulatory [facility] Start: 04-08-2024 End: 04-08-2024 ambulatory [facility] Start: 04-02-2024 End: 04-02-2024 ambulatory [facility] Start: 03-31-2024 End: 03-31-2024 ambulatory [facility] Start: 03-26-2024 End: 03-26-2024 ambulatory [facility] Start: 03-24-2024 End: 03-24-2024 ambulatory [facility] Start: 03-19-2024 End: 03-19-2024 ambulatory [facility] Start: 03-17-2024 End: 03-17-2024 ambulatory [facility] Start: 03-12-2024 End: 03-12-2024 ambulatory [facility] Start: 03-10-2024 End: 03-10-2024 ambulatory [facility] Start: 03-03-2024 End: 03-03-2024 ambulatory [facility] Start: 02-25-2024 End: 02-25-2024 ambulatory [facility] Start: 02-25-2024 End: 02-25-2024 ambulatory [facility] Start: 02-18-2024 End: 02-18-2024 ambulatory [facility] Start: 02-13-2024 End: 02-13-2024 ambulatory Pfo Infusion Chair 6 Elida Ireland [facility] - Medical Oncology Comment on above: Hypomagnesemia (Prim fara Dx) Start: 02-11-2024 End: 02-11-2024 ambulatory [facility] Start: 02-06-2024 End: 02-06-2024 [facility]ulatory [facility] Comment on above: Hypomagnesemia (Prim fara Dx) Start: 02-04-2024 End: 02-04-2024 ambulatory [facility] Start: 02-04-2024 End: 02-04-2024 ambulatory Christian Curtis MD Facility:[facility] Start: 01-30-2024 End: 01-30-2024 ambulatory Pfo Infusion Chair 6 Elida Ireland [facility] - Medical Oncology Comment on above: Hypomagnesemia (Prim fara Dx) Start: 01-28-2024 End: 01-28-2024 ambulatory [facility] Start: 01-23-2024 End: 01-23-2024 ambulatory Pfo Infusion Chair 6 Elida Ireland [facility] - Medical Oncology Comment on above: Hypomagnesemia (Prim fara Dx) Start: 01-21-2024 End: 01-21-2024 ambulatory [facility] Start: 01-21-2024 End: 01-21-2024 ambulatory Christian Curtis MD Facility:[facility] Start: 01-17-2024 Orders Only Fernie noguera DO Work Phone: [facility] Comment on above: Hypertension 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 ([facility]) (Primary Dx) Start: 01-16-2024 End: 01-16-2024 ambulatory Pfo Infusion Chair 6 Elida Ireland [facility] - Medical Oncology Comment on above: Hypomagnesemia (Prim fara Dx) Start: 01-14-2024 End: 01-14-2024 ambulatory [facility] Start: 01-09-2024 End: 01-09-2024 ambulatory Pfo Infusion Chair 3 Elida Ireland [facility] Medical Oncology Comment on above: Hypomagnesemia (Prim fara Dx) Start: 01-08-2024 End: 01-08-2024 Patient encounter procedure Fernie Hackett DO Work Phone: [facility] Comment on above: Medicare annual well ness visit, subsequent (Primary Dx); Screening for depression Start: 01-08-2024 End: 01-08-2024 ambulatory [facility] Start: 01-07-2024 End: 01-07-2024 ambulatory [facility] Start: 01-02-2024 End: 01-11-2024 ambulatory Pfo Infusion Chair 4 Elida Ireland [facility] Medical Oncology Comment on above: Hypomagnesemia (Prim fara Dx) Start: 12-31-2023 End: 12-31-2023 ambulatory [facility] Start: 12-26-2023 End: 12-26-2023 ambulatory Pfo Infusion Chair 4 Elida L Beka [facility] Medical Oncology Comment on above: Hypomagnesemia (Prim fara Dx) Start: 12-24-2023 End: 12-24-2023 [facility] Start: 12-19-2023 End: 12-19-2023 ambulatory Pfo Infusion Chair 2 Elida L Beka [facility] Medical Oncology Comment on above: Hypomagnesemia (Prim fara Dx) Start: 12-17-2023 End: 12-17-2023 ambulatory [facility] Start: 12-12-2023 End: 12-12-2023 ambulatory Pfo Infusion Chair 2 Elida L Beka [facility] Oncology Comment on above: Hypomagnesemia (Prim fara Dx) Start: 12-11-2023 Refill Theresa Dhaval [facility] Start: 12-10-2023 End: 12-10-2023 ambulatory [facility] Start: 12-07-2023 Orders Only Fernie noguera DO Work Phone: [facility] Start: 12-05-2023 Telephone encounter Gia Tammy [facility] Nephrology Start: 12-05-2023 End: 12-05-2023 ambulatory FERNIE Ricketts [employer] Other Start: 12-04-2023 Refill Fernie noguera DO Work Phone: [facility] Start: 12-03-2023 End: 12-03-2023 ambulatory [facility] Start: 11-28-2023 End: 11-28-2023 ambulatory [facility] Comment on above: Hypomagnesemia (Prim fara Dx) Start: 11-26-2023 End: 11-26-2023 ambulatory [facility] Start: 11-26-2023 End: 11-26-2023 ambulatory FERNIE HACKETT [facility] Start: 11-26-2023 End: 11-26-2023 ambulatory FERNIE HACKETT [facility] Start: 11-21-2023 End: 11-21-2023 ambulatory Pfo Infusion Bed 1 El[facility] Comment on above: Hypomagnesemia (Prim fara Dx) Mixed hyperlipidemia (Primary Dx); Type 2 diabetes mellitus with stage 3b chronic kidney disease, with long-term current use of insulin ([facility]); Essential hypertension Start: 11-20-2023 Chart abstracting Felicity Merritt [facility] Start: 11-19-2023 End: 11-19-2023 ambulatory [facility] Comment on above: Hypomagnesemia (Prim fara Dx) Start: 11-16-2023 End: 11-16-2023 ambulatory Gia Tammy Facility:[facility] Start: 11-16-2023 End: 11-16-2023 ambulatory DO Fernie Mascorrong Work Phone: [facility] Work Phone: Start: 11-16-2023 End: 11-16-2023 Discharged Recurring DO Fernie Mascorrong Work Phone: [facility] - [facility]/P Work Phone: Start: 11-12-2023 Refill Fernie noguera DO Work Phone: [facility] Start: 08-23-2023 End: 08-23-2023 ambulatory Gia Tammy Other Lookback Other Start: 08-23-2023 Office outpatient vi sit 25 minutes Gia Tammy [facility] Start: 04-26-[address] FERNIE HACKETT Fac ility:[facility] Start: 01-25-2023 End: 01-26-[address] LUISA STERN . Lookback Other Start: 01-25-2023 Office outpatient vi sit 25 minutes Gia Tammy [facility] Start: 01-15-2023 End: 01-16-2023 ambulatory GIA TAMMY Facility:[facility] Start: 12-06-2022 End: 12-06-2022 ambulatory [facility] Start: 11-09-2022 End: 11-10-[address] FERNIE HACKETT Facility:[facility] Start: 10-26-2022 End: 10-27-[address] LUISA STERN . Facility:[facility] Start: 08-02-2022 End: 08-03-[address] LUISA STERN . Facility:[facility] Start: 07-20-2022 End: 07-20-2022 ambulatory Gia Tammy Other Lookback Other Start: 07-20-2022 Office outpatient vi sit 25 minutes Gia Tammy [facility] Start: 07-12-2022 End: 07-13-2022 ambulatory GIA TAMMY Facility:[facility] Start: 05-03-2022 End: 05-03-2022 ambulatory Gai Tammy Other Lookback Other Start: 05-03-2022 Telephone encounter Gia Tammy [facility] Start: 04-25-2022 End: 04-26-[address] LUISA STERN . Facility:[facility] Start: 04-06-2022 End: 04-06-2022 ambulatory Gia Tammy Other Lookback Other Start: 04-06-2022 Office outpatient vi sit 25 minutes Gia Tammy [facility] Start: 03-30-2022 End: 03-31-2022 ambulatory GIA TAMMY Facility:[facility] Start: 03-30-2022 End: 03-31-[address] LUISA STERN . Facility:[facility] Start: 12-27-2021 End: 12-27-2021 ambulatory Gia Tammy Other Lookback Other Start: 12-27-2021 Office outpatient vi sit 15 minutes Gia Tammy [facility] Start: 11-28-2021 End: 11-28-2021 ambulatory Gia Tammy Other Lookback Other Start: 11-28-2021 Telephone encounter Gia Tammy [facility] Start: 11-24-2021 End: 11-24-2021 ambulatory Gia Tammy Other Lookback Other Start: 11-24-2021 Telephone encounter Gia Tammy [facility] Start: 03-30-2021 End: 03-31-2021 ambulatory EHAB [facility] Facility:[facility] Procedures Date Procedure Procedure Detail Performing Clinician Start: 05-27-2024 Follow-up visit Follow-up FERNIE HACKETT Start: 05-27-2024 Adult depression screening assessment Pfo 4 Start: 01-08-2024 Adult depression screening assessment Fernie [...] (2 - Td or Tdap) [facility] Start: 11-04-2025 Fall Risk Screening Fall [facility] Start: 10-07-2025 Fall Risk Screening Fall Risk Screening [facility] Start: 09-26-2025 Tobacco Screening Tobacco Screening [facility] Start: 08-27-2025 Adult BMI Screening Adult BMI Screening [facility] Start: 08-27-2025 Fall Risk Screening Fall Risk Screening [facility] Start: 08-20-2025 Adult BMI Screening Adult BMI Screening [facility] Start: 08-13-2025 Adult BMI Screening Adult BMI Screening [facility] Start: 08-06-2025 Tobacco Screening Tobacco Screening [facility] Start: 05-27-2025 Depression Screening Depression Screening [facility] Start: 05-07-2025 Fall Risk Screening Fall Risk Screening [facility] Start: 02-05-2025 Adult BMI Screening Adult BMI Screening [facility] Start: 02-05-2025 Tobacco Screening Tobacco Screening [facility] Start: 01-29-2025 Adult BMI Screening Adult BMI Screening [facility] Start: 01-29-2025 Tobacco Screening Tobacco Screening [facility] Start: 01-22-2025 Adult BMI Screening Adult BMI Screening [facility] Start: 01-22-2025 Tobacco Screening Tobacco Screening [facility] Start: 01-15-2025 Adult BMI Screening Adult BMI Screening [facility] Start: 01-13-2025 End: 01-13-2025 Patient encounter procedure 01/13/2025 12:40 PM EST Of fice Visit [facility] [address] [place] [address] [facility] Start: 01-09-2025 Adult BMI Screening Adult BMI Screening [facility] Start: 01-09-2025 Tobacco Screening Tobacco Screening [facility] Start: 01-08-2025 Depression Screening Depression Screening [facility] Start: 01-08-2025 Fall Risk Screening Fall Risk Screening [facility] Start: 01-08-2025 Medicare Annual Wellness Visit Medicare Annual Wellness Visi t [facility] Start: 01-02-2025 Tobacco Screening Tobacco Screening [facility] Start: 12-26-2024 Adult BMI Screening Adult BMI Screening [facility] Start: 12-26-2024 Tobacco Screening Tobacco Screening [facility] Start: 12-19-2024 Adult BMI Screening Adult BMI Screening [facility] Start: 12-19-2024 Tobacco Screening Tobacco Screening [facility] Start: 12-15-2024 End: 12-15-2024 Patient encounter procedure 12/15/2024 12:30 PM EST Procedure visit [facility] [address] [place] [address] Ton Urbano MD [address] [place] [address] [facility] Start: 12-12-2024 Adult BMI Screening Adult BMI Screening [facility] Start: 12-10-2024 End: 12-10-2024 ambulatory 12/10/2024 9:30 AM EST Infusion [facility] L [facility] [address] [place] [phone] Elida L [facility] Start: 12-05-2024 Adult BMI Screening Adult BMI Screening [facility] Start: 12-05-2024 Tobacco Screening Tobacco Screening [facility] Start: 12-04-2024 End: 12-04-2024 Patient encounter procedure 12/04/2024 1:30 PM EST Off ice Visit [facility] [address] [place] [address] Fernie Hackett, DO [address] [place] [address] [facility] Start: 12-03-2024 End: 12-03-2024 ambulatory 12/03/2024 9:30 AM EST Infusion Elida [facility] Medical Oncology [address] [place] [phone] Elida Merritt [facility] Start: 11-28-2024 Adult BMI Screening Adult [facility] Start: 11-28-2024 Tobacco Screening Tobacco Screening [facility] Start: 11-27-2024 End: 11-27-2024 Patient encounter procedure 11/27/2024 1:00 PM EST Off ice Visit [facility] [address] [place] [address] Fernie Hackett, DO [address] [facility], [place] [address] [facility] Internal Medicine - Family Medicine Start: 11-26-2024 Adult BMI Screening Adult BMI Screening [facility] Start: 11-26-2024 Depression Screening Depression Screening [facility] Start: 11-26-2024 Fall Risk Screening Fall Risk Screening [facility] Start: 11-26-2024 Tobacco Screening Tobacco Screening [facility] Start: 11-26-2024 End: 11-26-2024 ambulatory 11/26/2024 9:30 AM EST Infusion Elida [facility] [address] [place] [phone] Elida [facility] Start: 11-21-2024 Adult BMI Screening Adult BMI Screening [facility] Start: 11-20-2024 Bacteria identified in Urine by Culture Urine Culture [facility] Start: 11-20-2024 Urine culture [facility] Start: 11-18-2024 End: 11-18-2024 ambulatory 11/18/2024 11:30 AM EST Infusion Elida [facility] [address] [place] [phone] Elida [facility] Start: 11-11-2024 End: 11-11-2024 ambulatory 11/11/2024 9:30 AM EST Infusion Elida [facility] [address] [place] [phone] Elida [facility] Start: 11-04-2024 End: 11-04-2024 ambulatory 11/04/2024 9:30 AM EST Infusion Elida [facility] [address] [place] [phone] Elida [facility] Start: 10-29-2024 End: 10-29-2024 ambulatory 10/29/2024 9:30 AM EST Infusion Elida Merritt [facility] [address] [place] [address] Elida L [facility] Start: 10-22-2024 End: 10-22-2024 ambulatory 10/22/2024 9:30 AM EST Infusion Elida [facility] [address] [place] [phone] Elida Merritt [facility] Start: 10-20-2024 Subsequent hospital visit by physician 10/20/2024 11:33 AM EST Hospital Encounter [facility] [address] [place] [phone] Hypomagnesemia [facility] Comment on above: Hypomagnesemia Start: 10-18-2024 Adult BMI Screening Adult BMI Screening [facility] Start: 10-18-2024 Depression Screening Depression Screening [facility] Start: 10-18-2024 Tobacco Screening Tobacco Screening [facility] Start: 10-15-2024 End: 10-15-2024 ambulatory 10/15/2024 9:30 AM EST Infusion Elida Merritt [facility] [address] [place] [phone] Elida Merritt [facility] Start: 10-08-2024 End: 10-08-2024 ambulatory 10/08/2024 9:30 AM EST Infusion Elida Merritt [facility] [address] [place] [phone] Elida L [facility] Start: 10-07-2024 End: 10-07-2024 ambulatory 10/07/2024 9:30 AM EST Infusion Elida [facility] [address] [place] [phone] Elida L [facility] Start: 10-01-2024 End: 10-01-2024 ambulatory 10/01/2024 9:30 AM EST Infusion Elida L [facility] [address] [place] [phone] Elida L [facility] Start: 09-26-2024 End: 09-26-2024 Admission to same day surgery center 09/26/2024 12:30 PM EST - 09/26/2024 1:30 PM EST Surgery [facility] [address] [facility] [place] [phone] Daniel Guerrero, DO [address] [place] [address] ESOPHAGOGASTRODUODENOSCOPY DIAGNOSTIC [38383 (CPT )] [facility] Comment on above: ESOPHAGOGASTRODUODENOSCOPY DIAGNOSTIC [4 3235 (CPT )] Start: 09-26-2024 End: 09-26-2024 Esophagogastroduodenoscopy transoral diagnostic ESOPHAGOGASTRODUODENOSCOPY DIAGNOSTIC ross's esophagus 09/26/2024 12:30 PM EST [facility] Start: 09-26-2024 Subsequent hospital visit by physician 09/26/2024 12:30 PM EST Hospital Encounter [facility] [address] [place] [phone] Daniel Guerrero, DO [address] [place] [address] [facility] Start: 09-25-2024 End: 09-25-2024 ambulatory 09/25/2024 3:40 PM EST Suppo rt Visit [facility] - Pre Admit [address] [place] [address] [facility] Pre Admit Start: 09-24-2024 End: 09-24-2024 ambulatory 09/24/2024 9:30 AM EST Infusion Elida Merritt [facility] [place] [phone] Elida [facility] Start: 09-17-2024 End: 09-17-2024 ambulatory 09/17/2024 9:30 AM EST Infusion Elida [facility] [address] [place] [address] Elida [facility] Start: 09-10-2024 End: 09-10-2024 ambulatory 09/10/2024 9:30 AM EDT Infusion Elida [facility] [address] [place] [address] Elida [facility] Start: 09-03-2024 End: 09-03-2024 ambulatory 09/03/2024 9:30 AM EDT Infusion Elida [facility] [address] [place] [phone] Elida [facility] Start: 08-27-2024 End: 08-27-2024 ambulatory 08/27/2024 9:30 AM EDT Infusion Elida [facility] [address] [place] [phone] Elida [facility] Start: 08-20-2024 End: 08-20-2024 ambulatory 08/20/2024 9:30 AM EDT Infusion Elida [facility] [address] [place] [phone] Elida [facility] Start: 07-24-2024 Fall Risk Screening Fall Risk Screening [facility] Start: 07-13-2024 COVID-19 Vaccine () COVID-19 Vaccine () [facility] Start: 07-13-2024 COVID-19 Vaccine () COVID-19 Vaccine () [facility] Start: 05-27-2024 End: 05-27-2024 Patient encounter procedure 05/27/2024 1:30 PM EDT Off ice Visit [facility] [address] [place] [address] Fernie Hackett DO [address] [place] [address] [facility] Start: 03-05-2024 End: 03-05-2024 ambulatory 03/05/2024 9:30 AM EDT Infusion Elida [facility] [address] [place] [phone] Elida L [facility] Start: 02-27-2024 End: 02-27-2024 ambulatory 02/27/2024 9:30 AM EDT Infusion Elida L [facility] [address] [place] [phone] Elida L [facility] Start: 02-25-2024 End: 02-25-2024 Patient encounter procedure 02/25/2024 2:45 PM EDT Off ice Visit [facility] [address] [place] [address] Fernie Hackett, [address] [place] [address] [facility] Start: 02-20-2024 End: 02-20-2024 ambulatory 02/20/2024 9:30 AM EDT Infusion Elida L [facility] [address] [place] [phone] Elida L [facility] Start: 02-13-2024 End: 02-13-2024 ambulatory 02/13/2024 9:30 AM EDT Infusion Elida L [facility] [address] [place] [phone] Elida [facility] Start: 02-06-2024 End: 02-06-2024 ambulatory 02/06/2024 9:30 AM EDT Infusion Elida [facility] [address] [place] [address] Elida [facility] Start: 01-30-2024 End: 01-30-2024 ambulatory 01/30/2024 9:30 AM EDT Infusion Elida [facility] [address] [place] [phone] Elida [facility] Start: 01-23-2024 End: 01-23-2024 ambulatory 01/23/2024 9:30 AM EDT Infusion Elida [facility] [address] [place] [phone] Elida [facility] Start: 01-16-2024 End: 01-16-2024 ambulatory 01/16/2024 9:30 AM EST Infusion Elida [facility] [address] [place] [phone] Elida [facility] Start: 01-09-2024 End: 01-09-2024 ambulatory 01/09/2024 9:30 AM EST Infusion Elida [facility] [address] [place] [phone] Elida [facility] Start: 01-08-2024 End: 01-08-2024 Patient encounter procedure 01/08/2024 1:00 PM EST Off ice Visit [facility] [address] [place] [address] [facility] Start: 01-02-2024 End: 01-02-2024 ambulatory 01/02/2024 9:30 AM EST Infusion Elida [facility] [address] [place] [phone] Elida [facility] Start: 12-26-2023 End: 12-26-2023 ambulatory 12/26/2023 9:30 AM EST Infusion Elida [facility] [address] [place] [phone] Elida [facility] Start: 12-19-2023 End: 12-19-2023 ambulatory 12/19/2023 9:30 AM EST Infusion Elida [facility] [address] [place] [phone] Elida [facility] Start: 12-12-2023 Administration of varicella zoster vaccine Zoster (Shingles) Vaccine (1 of 2) [employer] Comment on above: Postponed from 03/12/2015 (Patient Refus ed) Start: 12-12-2023 Medicare Annual Wellness Visit Medicare Annual Wellness Visi t [facility] Start: 12-12-2023 End: 12-12-2023 ambulatory 12/12/2023 9:30 AM EST Infusion Elida [facility] [address] [place] [phone] Elida [facility] Start: 12-05-2023 End: 12-05-2023 ambulatory 12/05/2023 9:30 AM EST Infusion Elida [facility] [address] [place] [phone] Elida Ireland [facility] Start: 11-28-2023 End: 11-28-2023 ambulatory 11/28/2023 9:30 AM EST Infusion Elida [facility] [address] [place] [phone] Elida [facility] Start: 11-26-2023 End: 11-26-2023 Patient encounter procedure 11/26/2023 1:30 PM EST Off ice Visit [facility] [address] [place] [address] Fernie Hackett, DO [address] [facility], [place] [address] [facility] Start: 11-21-2023 End: 11-21-2023 ambulatory 11/21/2023 9:30 AM EST Infusion Elida [facility] [address] [place] [phone] Elida [facility] Start: 07-13-2023 COVID-19 Vaccine ( season) COVID-19 Vaccine () [facility] Start: 03-12-2015 Administration of varicella zoster vaccine Zoster (Shingles) Vaccine (1 of 2) [facility] Start: 1958 Adult BMI Follow Up Plan Adult BMI Follow Up Plan [facility] End: 11-21-2024 Comprehensive metabolic 2000 panel - Serum or Plasma Comprehensive metabolic panel Lab Routine Essential hypertension 1 Occurrences starting 11/21/2023 until 11/21/2024 [facility] Work Phone: Comment on above: 1 Occurrences starting 11/21/2023 until 11/21/2024 End: 09-04-2025 EMG EMG Neurology Routine Paresthesia of right lower extremity 1 Occurrences starting 09/04/2024 until 09/04/2025 [facility]: Comment on above: 1 Occurrences starting 09/04/2024 until 09/04/2025 End: 09-04-2025 Esophagogastroduodenoscopy EGD GI Routine Ross's esophagus with dysplasia 1 Occurrences starting 09/04/2024 until 09/04/2025 [facility] Comment on above: 1 Occurrences starting 09/04/2024 until 09/04/2025 Esophagogastroduoden oscopy transoral diagnostic ESOPHAGOGASTRODUODENOSCOPY DIAGNOSTIC 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 [facility] End: 11-21-2024 Hemoglobin A1c/Hemoglobin.total in Blood Hemoglobin A1c Lab Routine Type 2 diabetes mellitus with stage 3b chronic kidney disease, with long-term current use of insulin ([facility]) 1 Occurrences starting 11/21/2023 until 11/21/2024 [employer] Comment on above: 1 Occurrences starting 11/21/2023 until 11/21/2024 End: 11-21-2024 Lipid panel Lipid panel Lab Routine Mixe d hyperlipidemia 1 Occurrences starting 11/21/2023 until 11/21/2024 [employer] Comment on above: 1 Occurrences starting 11/21/2023 until 11/21/2024 End: 11-18-2025 Magnesium [Mass/volume] in Serum or Plasma Magnesium Lab Routine Hypomagnesemia weekly for 52 Occurrences starting 11/18/2024 until 11/18/2025 [employer] Work Phone: Comment on above: weekly for 52 Occurrences starting 11/18 until 11/18/2025 End: 11-21-2024 Microalbumin - Albumin: Creatinine Urine Ratio Microalbumin - Albumin: Creatinine Urine Ratio Lab Routine Type 2 diabetes mellitus with stage 3b chronic kidney disease, with long-term current use of insulin ([facility] 1 Occurrences starting 11/21/2023 until 11/21/2024 [facility] Comment on above: 1 Occurrences starting 11/21/2023 until 11/21/2024 End: 01-16-2025 Potassium [Moles/volume] in Serum or Plasma Potassium Lab Routine 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 ([facility]) 1 Occurrences starting 01/17/2024 until 01/16/2025 [employer] Work Phone: Comment on above: 1 Occurrences starting 01/17/2024 until 01/16/2025 Renal function 2000 panel - Serum or Plasma [facility] Immunizations Immunization Date Immunization Notes Care Provider Fa cili 08-31-2021 Influenza, High-dose , Quadrivalent Fernie Furlong DO [facility] 02-01-2021 COVID-19, mRNA, LNP- S, PF, 30mcg/0.3mL Dose Fernie Furlong DO Work Phone: [employer] 01-10-2021 COVID-19, mRNA, LNP- S, PF, 30mcg/0.3mL Dose Fernie Furlong DO Work Phone: [facility] 07-29-2020 influenza, high dose seasonal, preservative-free Fernie Furlong DO Work Phone: [facility] 09-03-2019 influenza, high dose seasonal, preservative-free Fernie Furlong DO Work Phone: [facility] 09-30-2018 tetanus toxoid, redu kiran diphtheria toxoid, and acellular pertussis vaccine, adsorbed Fernie Furlong DO Work Phone: [facility] 09-19-2018 influenza, high dose seasonal, preservative-free Fernie Furlong DO Work Phone: [facility] 09-03-2017 influenza virus vacc ine, unspecified formulation Fernie Furlong DO Work Phone: [facility] 07-27-2015 influenza, seasonal, injectable, preservative free Fernie Furlong DO Work Phone: [facility] 07-27-2015 seasonal influenza, intradermal, preservative free Fernie Furlong DO Work Phone: [facility] 01-15-2015 zoster vaccine, live Fernie Furlong DO Work Phone: [facility] 01-15-2015 zoster vaccine, unspecified formulation Fernie Furlong DO Work Phone: [facility] 07-16-2014 influenza, seasonal, injectable Fernie Furlong DO Work Phone: [facility] 10-20-2013 pneumococcal conjuga te vaccine, 13 valent Fernie Furlong DO Work Phone: [facility] 08-30-2011 tetanus and diphther ia toxoids, not adsorbed, for adult use Fernie Furlong DO Work Phone: [facility] 08-20-2008 pneumococcal polysaccharide vaccine, 23 valchrista Hackett DO Work Phone: [facility] Payers Date Payer Category Payer Self-pay [id number] 11-12-2022 Unknown 11-12-2015 Managed Care Other (unspecified) [facility] [id number] [id number] 11-12-2015 Private Health Insurance [facility] AARP SUPPLEMENT [id number] 11/12/2015-Present [phone] [address] [place] [address] 1.2.840.216027.1.13.424.2 .7.3.668935.315 09-12-2007 Medicare [id number]. 1.13.424.2 .7.3.910291.315 11-12-1959 Medicare [id number] 11-12-1959 Unknown [id number] 1942 Unknown [id number] 2.16.840.1.923718.3.579.2 .647 1942 Unknown [id number] 2.16.840.1.283739.3.579.2 .593 1942 Unknown [id number] 2.16.840.1.484185.3.579.2 .593 1942 Unknown [id number] 2.16.840.1.039326.3.579.2 .593 1942 Unknown [id number] 2.16.840.1.036183.3.579.2 .593 1942 Unknown [id number] 2.16.840.1.795629.3.579.2 .593 1942 Unknown [id number] 2.16.840.1.575857.3.579.2 .593 1942 Unknown [id number] 2.16.840.1.261434.3.579.2 .593 1942 Unknown [id number] 2.16.840.1.945828.3.579.2 .593 1942 Unknown [id number] 2.16.840.1.842152.3.579.2 .593 1942 Unknown [id number] 2.16.840.1.091229.3.579.2 .593 1942 Unknown [id number] 2.16.840.1.053980.3.579.2 .593 1942 Unknown [id number] 2.16.840.1.874589.3.579.2 .1286 1942 Unknown [id number] 2.16.840.1.853705.3.579.2 .1286 1942 Unknown [id number] 2.16.840.1.190280.3.579.2 .1286 1942 Unknown [id number] 2.16.840.1.417184.3.579.2 .1286 1942 Unknown [id number] 2.16.840.1.771440.3.579.2 .1286 1942 Unknown [id number] 2.16.840.1.428505.3.579.2 .1286 1942 Unknown [id number] 2.16.840.1.620545.3.579.2 .1286 1942 Unknown [id number] 2.16.840.1.747178.3.579.2 .196 1942 Unknown [id number] 2.16.840.1.848123.3.579.2 .1942 Unknown [id number] 2.16.840.1.780505.3.579.2 .1942 Unknown [id number] 2.16.840.1.855159.3.579.2 .196 1942 Unknown [id number] 2.16.840.1.252599.3.579.2 .1286 1942 Unknown [id number] 2.16.840.1.491180.3.579.2 .1285 1942 Unknown [id number] 2.16.840.1.315025.3.579.2 .1285 1942 Unknown [id number] 2.16840.1.213151.3.579.2 .1285 1942 Unknown [id number] 2.16.840.1.097822.3.579.2 .1285 1942 Unknown [id number] 2.16.840.1.332607.3.579.2 .1285 1942 Unknown [id number] 2.16.840.1.479163.3.579.2 .1285 1942 Unknown [id number] 2.16.840.1.780287.3.579.2 .1285 1942 Unknown [id number] 2.16.840.1.456371.3.579.2 .1285 1942 Unknown [id number] 2.16.840.1.218690.3.579.2 .1285 1942 Unknown [id number] 2.16.840.1.230576.3.579.2 .1285 1942 Unknown [id number] 2.16.840.1.159102.3.579.2 .128 1942 Unknown [id number] 2.16.840.1.494744.3.579.2 .1285 1942 Unknown [id number] 2.16.840.1.595174.3.579.2 .1285 1942 Unknown [id number] 2.16840.1.708486.3.579.2 .1285 1942 Unknown [id number] 2.16840.1.060554.3.579.2 .1285 1942 Unknown [id number] 2.840.1.540952.3.579.2 .1285 1942 Unknown [id number] 2.840.1.963267.3.579.2 .1285 1942 Unknown [id number] 2.840.1.198648.3.579.2 .1285 1942 Unknown [id number] 2.840.1.421650.3.579.2 .1285 1942 Unknown [id number] 2.840.1.713984.3.579.2 .1285 1942 Unknown [id number] 2.840.1.019426.3.579.2 .1285 1942 Unknown [id number] 2.840.1.546001.3.579.2 .1285 1942 Unknown [id number] 2.840.1.109816.3.579.2 .1285 1942 Unknown [id number] 2.16840.1.675391.3.579.2 .1285 1942 Unknown [id number] 2.16840.1.189201.3.579.2 .1285 1942 Unknown [id number] 2.16840.1.896788.3.579.2 .1285 1942 Unknown [id number] 2.16.840.1.796130.3.579.2 .1285 1942 Unknown [id number] 2.16.840.1.252057.3.579.2 .1285 1942 Unknown [id number] 2.16.840.1.708167.3.579.2 .1285 1942 Unknown [id number] 2.16.840.1.062560.3.579.2 .1285 1942 Unknown [id number] 2.16.840.1.991224.3.579.2 .1285 1942 Unknown [id number] 2.16.840.1.349751.3.579.2 .1285 1942 Unknown [id number] 2.840.1.118421.3.579.2 .1285 1942 Unknown [id number] 2.840.1.553905.3.579.2 .1285 1942 Unknown [id number] 2.16840.1.015841.3.579.2 .1285 1942 Unknown [id number] 2.16.840.1.667099.3.579.2 .1285 1942 Unknown [id number] 2.840.1.862902.3.579.2 .1285 1942 Unknown [id number] 2.16840.1.475437.3.579.2 .1285 1942 Unknown [id number] 2.16.840.1.183343.3.579.2 .1285 1942 Unknown [id number] 2.16.840.1.674059.3.579.2 .1285 1942 Unknown [id number] 2.16.840.1.022391.3.579.2 .1285 1942 Unknown [id number] 2.16.840.1.948480.3.579.2 .1285 1942 Unknown [id number] 2.16.840.1.131796.3.579.2 .1285 1942 Unknown [id number] 2.16.840.1.310285.3.579.2 .1285 1942 Unknown [id number] 2.16.840.1.143966.3.579.2 .1285 1942 Unknown [id number] 2.16.840.1.657044.3.579.2 .1285 1942 Unknown [id number] 2.16.840.1.033415.3.579.2 .1285 1942 Unknown [id number] 2.840.1.804313.3.579.2 .1285 1942 Unknown [id number] 2.16.840.1.934187.3.579.2 .1285 1942 Unknown [id number] 2..840.1.768209.3.579.2 .1285 1942 Unknown [id number] 2.16.840.1.809312.3.579.2 .1285 1942 Unknown [id number] 2.840.1.572896.3.579.2 .1285 1942 Unknown [id number] 2.16.840.1.725687.3.579.2 .1285 1942 Unknown [id number] 2.16.840.1.810939.3.579.2 .1285 1942 Unknown [id number] 2.16.840.1.989697.3.579.2 .1285 1942 Unknown [id number] 2.16.840.1.370275.3.579.2 .1285 1942 Unknown [id number] 2.16.840.1.786189.3.579.2 .1286 1942 Unknown [id number] 2.16.840.1.073216.3.579.2 .1285 1942 Unknown [id number] 2.16.840.1.964000.3.579.2 .1285 1942 Unknown [id number] 2.16.840.1.699929.3.579.2 .1285 1942 Unknown [id number] 2.16.840.1.075963.3.579.2 .1285 1942 Unknown [id number] 2.16.840.1.379286.3.579.2 .1285 1942 Unknown [id number] 2.16.840.1.022471.3.579.2 .1285 1942 Unknown [id number] 2.16.840.1.353143.3.579.2 .1285 1942 Unknown [id number] 2.16.840.1.023832.3.579.2 .1285 1942 Unknown [id number] 2.16.840.1.051046.3.579.2 .1285 1942 Unknown [id number] 2.16.840.1.001669.3.579.2 .1285 1942 Unknown [id number] 2.16.840.1.722019.3.579.2 .1285 1942 Unknown [id number] 2.16.840.1.191697.3.579.2 .1285 1942 Unknown [id number] 2.16.840.1.984178.3.579.2 .1285 1942 Unknown [id number] 2.16.840.1.426428.3.579.2 .1285 1942 Unknown [id number] 2.16.840.1.646144.3.579.2 .128 1942 Unknown [id number] 2.16.840.1.078132.3.579.2 .1285 1942 Unknown [id number] 2.16.840.1.356664.3.579.2 .1285 1942 Unknown [id number] 2.16.840.1.141496.3.579.2 .1285 1942 Unknown [id number] 2.16.840.1.045677.3.579.2 .1285 1942 Unknown [id number] 2.16.840.1.305343.3.579.2 .1285 1942 Unknown [id number] 2.16.840.1.803546.3.579.2 .1285 1942 Unknown [id number] 2.16.840.1.191072.3.579.2 .1285 1942 Unknown [id number] 2.16.840.1.666765.3.579.2 .1285 1942 Unknown [id number] 2.16.840.1.457559.3.579.2 .1285 1942 Unknown [id number] 2.16.840.1.924750.3.579.2 .1285 1942 Unknown [id number] 2.16.840.1.368819.3.579.2 .1285 1942 Unknown [id number] 2.16.840.1.779518.3.579.2 .1285 1942 Unknown [id number] 2.16.840.1.482945.3.579.2 .1285 1942 Unknown [id number] 2.16.840.1.154355.3.579.2 .1285 1942 Unknown [id number] 2.16.840.1.462849.3.579.2 .1285 1942 Unknown [id number] 2.16.840.1.723859.3.579.2 .1286 1942 Unknown [id number] 2.16.840.1.899828.3.579.2 .1286 1942 Unknown [id number] 2.16.840.1.888170.3.579.2 .1286 1942 Unknown [id number] 2.16.840.1.968101.3.579.2 .1286 1942 Unknown [id number] 2.16.840.1.211620.3.579.2 .1286 1942 Unknown [id number] 2.16.840.1.126661.3.579.2 .1286 Private Health Insurance [facility] [id number] Unknown [id number] 2.16.840.1.499571.3.579.2 .531 Social History Date Type Detail Facility Unknown if ever smoked Lookback Other Start: 10-18-2023 End: 01-08-2024 Sex Assigned At [facility] Start: 05-04-2017 End: 05-01-2024 Tobacco smoking status NHIS Never smoked tobacco [facility] Start: 05-04-2017 Tobacco use and exposure Smokeless tobacco non-user [facility] Start: 10-18-2023 End: 09-10-2024 Alcohol intake Current drinker of alcohol (finding) [facility] Start: 10-18-2023 End: 01-08-2024 [facility] Adolescent depressio n screening assessment 0 [facility] Start: 1940 Sex Assigned At Not on file P [facility] Start: 1940 Sex Assigned At Female F [facility] Has the electric, ga s, oil, or water company threatened to shut off services in your home in past 12Mo No [facility] Are you now , , , , never or living with a partner? [facility] How often to you hav e a drink containing alcohol? Never [facility] Do you feel stress - tense, restless, nervous, or anxious, or unable to sleep at night because your mind is troubled all the time - these days [OSQ] [facility] Start: 06-17-2015 End: 11-21-2024 Sex [facility] (finding[facility] Start: 09-26-2024 End: 09-30-2024 Alcoholic beverage intake Ex-drinker (finding) [facility] Medical Equipment Procedure Code Equipment Code Equipment Origin al Text Equipment Identifier Dates 1 strip by other route in the morning and 1 strip before bedtime. [id number] Start: 08-30-2023 End: 11-18-2024 1 Lancet. by miscellaneous route in the morning and 1 Lancet. before bedtime. [id number] Start: 08-30-2023 USE 1 NEEDLE THR EE TIMES A DAY [id number] Start: 07-23-2023 USE 1 NEEDLE THR EE TIMES A DAY [id number] Start: 07-17-2024 1 strip by other route in the morning and 1 strip before bedtime. [id number] Start: 11-18-2024 Clinical Notes 12-27-2021 to 11-24-2024 Clari Costa - 11/24/2024 8:41 AM ESTTelephone Encounter - Elle Garcia - 11/24/2024 8:41 AM ESTTelephone Encounter - Fernie Hackett DO - 11/24/2024 8:41 AM EST Note Date & Type Note Facility 11-24-2024 History of Presen t illness Narrative Patient's spouse called [facility] nurse this morning with concerns about . She was seen in the ED and diagnosed with UTI. She was prescribed Keflex. Spouse states she initially seemed to improve but he he reports she is still confused, hallucinating and out of it . Patient reports she still have burning with urination. They would like to be seen today by PCP if possible. Please advise. documented in this encounter [facility] 11-24-2024 Miscellaneous Notes Formattin g of this note is different from the original. Patient's spouse called [facility] nurse this morning with concerns about . She was seen in the ED and diagnosed with UTI. She was prescribed Keflex. Spouse states she initially seemed to improve but he he reports she is still confused, hallucinating and out of it . Patient reports she still have burning with urination. They would like to be seen today by PCP if possible. Please advise. She has altered mental status she should go to the emergency room. She could be septic Notified documented in this encounter [facility] 11-24-2024 Telephone encount er Note Patient's spouse called [facility] nurse this morning with concerns about . She was seen in the ED and diagnosed with UTI. She was prescribed Keflex. Spouse states she initially seemed to improve but he he reports she is still confused, hallucinating and out of it . Patient reports she still have burning with urination. They would like to be seen today by PCP if possible. Please advise. [facility] 11-24-2024 Telephone encount er Note She has altered mental status she should go to the emergency room. She could be septic [facility] 11-24-2024 Telephone encount er Note Notified [facility] 11-17-2024 History of Presen t illness Narrative Diabetic Supplies: After numerous attempts by and JARON we have been unable to get in touch with [facility] regarding patient diabetes supplies. Patient is currently out of test strips and would like order sent to new DME supplier. Could you please fax order to [facility] for [employer] meter and strips. Fax number: [phone]. [facility] Chronic Care Nurse Certified Retinal Angiographer [phone] documented in this encounter [facility] 11-17-2024 Miscellaneous Notes Formattin g of this note is different from the original. Diabetic Supplies: After numerous attempts by and JARON we have been unable to get in touch with [facility] regarding patient diabetes supplies. Patient is currently out of test strips and would like order sent to new DME supplier. Could you please fax order to [facility] for [employer] meter and strips. Fax number: [phone]. [facility] Chronic Care Nurse Certified Retinal Angiographer [phone] Please fax to [employer]. Prescriptions were printed documented in this encounter [facility] 11-17-2024 Telephone encount er Note Diabetic Supplies: After numerous attempts by and JARON we have been unable to get in touch with [facility] regarding patient diabetes supplies. Patient is currently out of test strips and would like order sent to new DME supplier. Could you please fax order to [facility] for [employer] meter and strips. Fax number: [phone]. [facility] Primary [facility] Chronic Care Nurse Certified Retinal Angiographer [phone] [facility] 11-17-2024 Telephone encount er Note Please fax to [place]. Prescriptions were printed [facility] 11-04-2024 History of Presen t illness Narrative Patient is here for 2g IV magnesium as scheduled. Mg level 1.7. PIV initiated, blood return noted, flushes with ease. NS started at KVO. Magnesium infused over 2 hours. Line flushed. Pt tolerated well. PIV dc'd, pressure dressing applied. Pt dc'd in stable ambulatory condition with spouse. documented in this encounter [facility] 10-20-2024 History of Presen t illness Narrative Patient mag level is 1.9, will not need magnesium infusion this week. Patient made aware and will continue on with next week's lab draw. documented in this encounter [facility] 10-07-2024 Miscellaneous Notes Formattin g of this note might be different from the original. Call patient and see if she requested this. It was stopped in the summertime documented in this encounter [facility] 10-07-2024 Telephone encount er Note Call patient and see if she requested this. It was stopped in the summertime [facility] 10-07-2024 History of Presen t illness Narrative Patient is here for 2g IV magnesium as scheduled. Mg level 1.7. PIV initiated, blood return noted, flushes with ease. NS started at KVO. Magnesium infused over 2 hours. Line flushed. Pt tolerated well. PIV dc'd, pressure dressing applied. Pt dc'd in stable ambulatory condition with spouse. documented in this encounter [facility] 10-01-2024 History of Presen t illness Narrative Pt here for 2g IV magnesium as scheduled. Mg level 1.7. PIV initiated to RFA. Brisk blood return noted, flushes with ease. NS started at KVO. Magnesium infused over 2 hours without incident. Pt tolerated well. Line flushed. PIV dc'd. Pressure dressing applied. Dc'd in stable ambulatory condition with updated treatment calendar. documented in this encounter [facility] 09-10-2024 Miscellaneous Notes Formattin g of this note might be different from the original. NEW EMG/NCV ORDER First attempt- Left Voicemail Dx: Paresthesia of right lower extremity [R20.2]/ Referred by: Fernie Hackett DO Referred to: Please schedule patient in the next available appointment with provider. Patient returned call and patient was scheduled for next available EMG in [place]. Patient was placed on waitlist. Appointment: 12/15/2024 at 12:30pm with Dr. Urbano documented in this encounter [facility] 09-10-2024 Telephone encount er Note NEW EMG/NCV ORDER First attempt- Left Voicemail Dx: Paresthesia of right lower extremity [R20.2]/ Referred by: Fernie Hackett DO Referred to: Please schedule patient in the next available appointment with provider. [facility] 09-10-2024 Telephone encount er Note Patient returned call and patient was scheduled for next available EMG in [place]. Patient was placed on waitlist. Appointment: 12/15/2024 at 12:30pm with Dr. Urbano [facility] 09-10-2024 History of Presen t illness Narrative Pt here for 2g IV magnesium. Mg level 1.7. PIV initiated to RFA. Brisk blood return verified, and flushes with ease. Magnesium infused over 2 hours without incident. Pt tolerated well. Flushed with saline and PIV dc'd. Pt dc'd in stable ambulatory condition. documented in this encounter [facility] 09-01-2024 History of Presen t illness Narrative Pt magnesium level 1.8. called to notify patient to see if shed like to notify dr medina office to see if she should still get mg infusion since she's WNL. Pt requests to take the week off and recheck mg level in one week. documented in this encounter [facility] 08-27-2024 History of Presen t illness Narrative Patient is here for 2g IV magnesium as scheduled. Mg level 1.6. PIV initiated, blood return noted, flushes with ease. NS started at KVO. Magnesium infused over 2 hours. Line flushed. Pt tolerated well. PIV dc'd, pressure dressing applied. Pt dc'd in stable ambulatory condition with spouse. documented in this encounter [facility] 08-22-2024 History of Presen t illness Narrative When was the last Refill? 05/27/24 Is this medication Historical? [place] of preferred Pharmacy? [facility] When was the last OV with provider? 05/27/24 When is the next scheduled visit? 11/27/24 documented in this encounter [facility] 08-20-2024 History of Presen t illness Narrative Pt here for 2g IV magnesium. Mg level 1.6. PIV initiated to RFA. Brisk blood return noted, flushes with ease. Magnesium infused over 2 hours. Line flushed. Pt tolerated well. PIV dc'd. Pressure dressing applied. Dc'd in stable ambulatory condition. documented in this encounter [facility] 08-13-2024 History of Presen t illness Narrative Pt here for 2g IV magnesium per pt reqeust. Mg level 1.6. PIV initiated to LFA. Brisk blood return noted, flushes with ease. NS started at KVO. Magnesium infused over 2 hours. Pt tolerated well. PIV dc'd. Pressure dressing applied. Dc'd in stable ambulatory condition. documented in this encounter [facility] 02-13-2024 History of Presen t illness Narrative Pt here for 2g IV magnesium as scheduled for mg level 2.0. Tolerating infusions well. PIV initiated to LFA- after multiple attempts. Brisk blood return noted, flushes with ease. NS started at KVO. Magnesium infused over 2 hours. Pt tolerated well. PIV dc'd, pressure dressing applied. Pt dc'd in stable ambulatory condition. documented in this encounter [facility] 02-06-2024 History of Presen t illness Narrative Pt here for 2g IV magnesium as scheduled for mg level 1.8. Tolerating infusions well. PIV initiated to RFA. Brisk blood return noted, flushes with ease. NS started at KVO. Magnesium infused over 2 hours. Pt tolerated well. PIV dc'd, pressure dressing applied. Pt dc'd in stable ambulatory condition. documented in this encounter [facility] [employer] 01-30-2024 History of Presen t illness Narrative Patient is here for 2g IV magnesium as scheduled. Mg level 1.8. PIV initiated, blood return noted, flushes with ease. NS started at KVO. Magnesium infused over 2 hours. Line flushed. Pt tolerated well. PIV dc'd, pressure dressing applied. Pt dc'd in stable ambulatory condition with spouse. documented in this encounter [facility] 01-23-2024 History of Presen t illness Narrative Patient is here for 2g IV magnesium as scheduled. Mg level 1.7. PIV initiated on second attempt, blood return noted, flushes with ease. NS started at KVO. Magnesium infused over 2 hours. Line flushed. Pt tolerated well. PIV dc'd, pressure dressing applied. Pt dc'd in stable ambulatory condition with spouse. documented in this encounter [facility] 01-16-2024 History of Presen t illness [...] of upcoming appointments. documented in this encounter [facility] 01-09-2024 History of Presen t illness Narrative Pt here for 2g IV magnesium for mg level of 1.7. Tolerating infusions well. PIV initiated to RFA. Brisk blood return, flushes with ease. NS started at KVO. Magnesium infused over 2 hours. Pt tolerated well. PIV flushed and dc'd. Pressure dressing applied. Dc'd in stable condition. 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 documented in this encounter [employer] 01-02-2024 History of Presen t illness Narrative Patient is here for 2g IV magnesium as scheduled. Mg level 1.7. PIV initiated on third attempt, blood return noted, flushes with ease. NS started at KVO. Magnesium infused over 2 hours. Line flushed. Pt tolerated well. PIV dc'd, pressure dressing applied. Pt dc'd in stable ambulatory condition with spouse. documented in this encounter [facility] 12-26-2023 History of Presen t illness Narrative Pt here for 2g IV magnesium infusion as scheduled. Mg level 1.6. Tolerating infusions well. PIV initiated to RFA. Brisk blood return noted, flushes with ease. NS started at KVO. Magnesium infused over 2 hours. Pt tolerated well. Line flushed. PIV dc'd. Pressure dressing applied. Pt v/u of future appointments. documented in this encounter [facility] 12-19-2023 History of Presen t illness Narrative Pt here for 4g IV magnesium infusion as scheduled. Mg level 1.5. Tolerating infusions well. PIV initiated to LFA. Brisk blood return noted, flushes with ease. NS started at KVO. Magnesium infused over 4 hours. Pt tolerated well. Line flushed. PIV dc'd. Pressure dressing applied. Pt v/u of future appointments. documented in this encounter [facility] 12-12-2023 History of Presen t illness Narrative Patient is here for 2g IV magnesium as scheduled. Mg level 1.7. PIV initiated blood return noted, flushes with ease. NS started at KVO. Magnesium infused over 2 hours. Line flushed. Pt tolerated well. PIV dc'd, pressure dressing applied. Pt dc'd in stable ambulatory condition with spouse. documented in this encounter [facility] 12-04-2023 Miscellaneous Notes Formattin g of this note might be different from the original. Patient called and these are both covered by insurance and she would like these sent in instead of what the alternative was documented in this encounter [facility] 12-04-2023 Telephone encount er Note Patient called and these are both covered by insurance and she would like these sent in instead of what the alternative was [facility] 11-28-2023 History of Presen t illness Narrative Patient here for 2g IV magnesium as scheduled. Mg level 1.8. PIV initiated to LFA Brisk blood return noted, flushes with ease. NS started at KVO. Magnesium infused over 2 hours. Line flushed. Pt tolerated well. PIV dc'd, pressure dressing applied. Pt dc'd in stable ambulatory condition with spouse. documented in this encounter [facility] 11-21-2023 History of Presen t illness [...] Treatment calendar provided. documented in this encounter [facility] 11-19-2023 Note Continue statin [facility] 11-19-2023 Note Hypertension is elev ated in office today was 192/86 and repeat b/p improved 158/80 Typically b/p is 122-150/60-80 at home and at other physician offices. Continue all meds ramipril, coreg [facility] 11-19-2023 Note Coronary artery dise ase is stable Continue GDMT- ASA, lipitor, coreg continue risk factor modifications- heart healthy diet, regular exercise as tolerated and continue all medications. [facility] 11-19-2023 Note Patient here for 1 y ear follow up CAD, hypertension, and venous insufficiency. Had labs a week or so ago for slate cutter and says she's in the process of [...] All other systems reviewed and are negative. [facility] 11-19-2023 Note UTP CARDIOLOGY PROGR ESS [...] labs a week or so ago for slate cutter and says she's in the process of [...] 2.05, BUN 64, (more content not included)... [facility] 08-23-2023 Evaluation note Encounter Date Diagnosis [...] magnesium diet and provide information about it. [facility] Other 03-16-2023 NoteCONSULTATION CONSULTATION DATE: 01/25/2023 HISTORY: [...] and to talk with Dr. Munoz, their slate cutter, to confirm that this was acceptable, considering her stage 3 kidney disease. Other than that, we will see her in three months' time at the clinic, unless otherwise indicated. Patient and agree with this plan.[facility] 01-25-2023 Evaluation note* Encounter Date Diagnosis Assessment [...] magnesium diet and provide information about it. Lookback [facility] Chief Complaint: Patient being seen via telephone call for 6 mo follow up hypertension, CAD, and CKD. She denies chest pain and increased SOB with exertion. C/o increased LE edema but denies weight gain. Says her slate cutter Dr. Munoz advised her to call him [...] enzyme inhibitor/receptor micki. 4. Follow up with [facility] Cardiology in the next 2 to 3 [...] creatinine and electrolytes; she follows with her slate cutter Leg swelling is likely related to venous [...] was initiated by the patient and conducted [id number] with use of audio-only real time telephone communication between patient and provider for a virtual visit. Verbal consent to provide and bill for this service was obtained on 12/06/2022. No signature was obtained due to the COVID-19 pandemic. Moe Parham MD, MPH, [facility], [facility], [facility] Interventional Cardiology Pager Email: [email or web address] NoteCONSULTATION CONSULTATION DATE: 10/26/2022 HISTORY OF PRESENT ILLNESS: This is a very pleasant, 82-year-old female who presents with her for a three month follow up. Today, she reports 0/10 pain and is overall doing well. At her last appointment on 08/02/2022, we had switched her medications from [place] to tramadol extended release 100 mg per day, which she feels is helping very much. It is lasting for her better than the [place]. She is also on Lyrica 75 mg [...] this plan.[id number] NoteCONSULTATION CONSULTATION DATE: 08/02/2022 HISTORY OF PRESENT ILLNESS: This is a pleasant, 81-year-old female, accompanied by her , returning to the clinic for a three month follow up for chronic lower back pain. She was last seen on 04/25/[address] Stern which, at that time, her [place] was decreased to 5/325 daily p.r.n., which [...] increased to 100 mg extended release daily. Harris[place] will be discontinued. Education was given regarding use of the menthol heat rub with Voltaren gel and heat application to her back. Vitamin and nutrition importance was discussed. Patient will be seen back in the clinic in three months' time, unless otherwise indicated, and patient agrees to this.[id number] Evaluation note* Encounter Date Diagnosis Assessment Notes [...] any recent gout flare. She takes allopurinol. Lookback Other 06-22-2022 Evaluation note* Encounter Date Diagnosis Assessment Notes Treatment Notes Treatment Clinical Notes Apr, Hypertensive chronic kidney disease with stage 1 through stage 4 chronic kidney disease, or unspecified chronic kidney disease (ICD-10 - I12.9) Lookback Other 06-14-2022 NoteCONSULTATION CONSULTATION DATE: 04/25/2022 CHIEF [...] 4/10. She is managing the pain with [place] 5/325 one table daily and tramadol 50 [...] the patient's pain medication which would be [place] 5/325 one tablet daily and tramadol 50 [...] she need us. CC: Fernie Hackett D.O. [facility] Signed and Approved by: DR LUISA STERN . 05/02/2022 08:52:00[facility]05-26-2022 Evaluation note* Encounter Date Diagnosis Assessment [...] any recent gout flare. She takes allopurinol. Lookback Other 05-19-2022 NoteCONSULTATION CONSULTATION DATE: 03/30/2022 This [...] She was given a 14-day prescription of [place] 5/325 b.i.d. to help with the acuity of her post-procedure pain. Today she reports the [place] is gone and she is back on [...] and rather we will maintain her on [place] 5/325 b.i.d. which proved to be the [...] and agree and would like to proceed. [facility] Signed and Approved by: JONNY CAMPUZANO . 04/03/2022 15:07:00[facility]02-15-2022 Evaluation note* Encounter Date Diagnosis Assessment [...] any recent gout flare. She takes allopurinol. [employer] Other Evaluation noteNo InformationNort [employer] Other Evaluation note* Diagnosis Hypomagnesemia- Primary Disorders of magnesium metabolism [facility]* Diagnosis Hypomagnesemia- Primary Disorders of magnesium metabolism [facility]* Diagnosis Mixed hyperlipidemia- Primary Type 2 diabetes mellitus with stage 3b chronic kidney disease, with long-term current use of insulin ([facility]) Essential hypertension Unspecified essential hypertension documented [facility] this [facility] noteNo assessment information available [facility] Work Phone: Evaluation note* Diagnosis Hypomagnesemia- Primary Disorders of magnesium metabolism documented in this [facility]* Diagnosis Hypomagnesemia- Primary Disorders of magnesium metabolism documented in this encounter [facility]* Diagnosis Hypomagnesemia- Primary Disorders of magnesium metabolism documented in this encounter [facility]* Diagnosis Hypomagnesemia- Primary Disorders of magnesium metabolism documented in this encounter [facility]* Diagnosis Medicare annual wellness visit, subsequent- Primary Screening for depression documented in this encounter [facility]* Diagnosis 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 ([facility])- Primary documented in this encounter [facility]* Diagnosis Hypomagnesemia- Primary Disorders of magnesium metabolism documented in this encounter [facility]* Diagnosis Onset Date Resolution Status Anemia of renal disease acut e CKD (chronic kidney disease) stage 3, GFR 30-59 ml/min acute [id number] acute Hyperuricemia acute Hypomagnesemia acute Secondary hyperparathyroidism acute Type 2 diabetes mellitus wit h diabetic chronic kidney disease acute [facility] Work Phone: Evaluation note* Diagnosis Hypomagnesemia- Primary Disorders of magnesium metabolism documented in this encounter [facility]* Diagnosis Hypomagnesemia- Primary Disorders of magnesium metabolism documented in this encounter [facility]* Diagnosis 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 (CMS-HCC)- Primary Morbid obesity ([facility]) Morbid obesity documented in this encounter [facility] note* Diagnosis Hypomagnesemia- Primary Disorders of magnesium metabolism documented in this [facility]* Diagnosis Paresthesia of right lower extremity- Primary Ross's esophagus with dysplasia documented in this encounter [facility]* Diagnosis Hypomagnesemia- Primary Disorders of magnesium metabolism documented in this encounter [facility]* Diagnosis Hypomagnesemia- Primary Disorders of magnesium metabolism [facility] Diagnosis 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 (CMS-HCC)- Primary Morbid obesity (CMS-HCC) Morbid obesity [facility] Diagnosis 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 (CMS-HCC)- Primary Morbid obesity (CMS-HCC) Morbid obesity [facility] - Reported* Type Description [...] IN LOWER BACK Hospitalization History see above Lookback Other History general Narrative - Reported* Type [...] HEART CATH 03/30/2021 Hospitalization History see above Lookback Other Hisipzn general Narrative - Reported* Type Description Date [...] IN LOWER BACK Hospitalization History see above Lookback Other InstructionsNot on filedocumented in this encounter [...] on filedocumented in this encounter [facility] Summary Purpose Family History Relationship Condition Age at Onset Recorded Date/T fam father Unknown family member Unknown Not Specified Diabetes mellitus Unknown Heart disease Unknown Unknown sister Heart disease Unknown Relationship Condition Age at Onset Recorded Date/T fam father Unknown family member Unknown mother Diabetes mellitus Unknown Heart disease Unknown Unknown sister Heart disease Unknown Advance Directives Advance Directive Response Recorded Date/ Time Advance Directives No December 14, 2023 12:48pm Advance Directive Response Recorded Date/ Time Advance Directives No December 14, 2023 11:48am Chief Complaint and Reason for Visit Chief Complaint hypomagnesemia Chief Complaint RENAL 6 month f/u Reason for Visit Anemia of renal dise ase CKD (chronic kidney disease) stage 3, GFR 30-59 ml/min [id number] Hyperuricemia Hypomagnesemia Secondary hyperparathyroidism Type 2 diabetes mellitus with diabetic chronic kidney disease Chief Complaint Admit Date Unknown November 20, 2024 4: 20am Additional Source Comments INFORMATION SOURCE (unrecogn ized section and content) DATE CREATED AUTHOR 04/06/2021 [facility] DATE CREATED AUTHOR AUTHOR'S ORGANIZ ATION 05/12/2022 [facility] DATE CREATED AUTHOR AUTHOR'S ORGANIZ ATION 03/15/2023 [facility] DATE CREATED AUTHOR AUTHOR'S ORGANIZ ATION 11/19/2023 [facility] DATE CREATED AUTHOR AUTHOR'S ORGANIZ ATION 11/23/2023 [facility] DATE CREATED AUTHOR AUTHOR'S ORGANIZ ATION 05/31/2024 [facility] DATE CREATED AUTHOR AUTHOR'S ORGANIZ ATION 06/03/2024 [facility] DATE CREATED AUTHOR AUTHOR'S ORGANIZ ATION 11/07/2024 [facility] DATE CREATED AUTHOR AUTHOR'S ORGANIZ ATION 11/23/2024 [facility] REASON FOR VISIT (unrecogniz ed [...] magnesium Reason Comments Outpatient Infusion IV Mg Reason Comments Outpatient Infusion IV Magnesium Reason Onset Date Comments [facility] NEW PATIENT 09/10/2024 Care Teams (unrecognized sec tion and content) Team Status: Active Member Role Status Dates Fernie Hackett DO Primary Care Provider Active Team Status: Inactive Member Role Status Dates Fernie Hackett DO Primary Care Provider Active Start: November 20, 2024 End: November 20, 2024 Gaetano Viera DO Attending Provider Active S tart: November 20, 2024 End: November 20, 2024 Team Status: Active Member Role Status Dates Fernie Hackett DO Primary Care Provide r, Attending Provider Active Start: April 28, 2024 Team Status: Inactive Member Role Status Dates Fernie Hackett DO Primary Care Provider Active Start: May 01, 2024 End: May 01, 2024 Gia Munoz MD Attending Provider Active Start : May 01, 2024 End: May 01, 2024 Wheel Braider Relationship Specialty Start Date End Date Fernie Hackett DO [address], [place] [address] PCP - General Family Medicine 05/09/17 Wheel Braider Relationship Specialty Start Date End Date Fernie Hackett DO [address], [place] [address] PCP - General Family Medicine 05/09/17 Wheel Braider Relationship Specialty Start Date End Date Fernie Hackett DO [address], [place] [address] PCP - General Family Medicine 05/09/17 Wheel Braider Relationship Specialty Start Date End Date RoxannFernie [address], [place] [address] PCP - General Family Medicine 05/09/17 Wheel Braider Relationship Specialty Start Date End Date Tracyangel luisFernie [address], [place] [address] PCP - General Family Medicine 05/09/17 Team Status: Inactive Member Role Status Dates Fernie Hackett DO Primary Care Provider Active Gia Munoz MD Attending Provider Active Wheel Braider Relationship Specialty Start Date End Date RoxannFernie [address], [place] [address] PCP - General Family Medicine 05/09/17 Wheel Braider Relationship Specialty Start Date End Date RoxannFernie [address], [place] [address] PCP - General Family Medicine 05/09/17 Wheel Braider Relationship Specialty Start Date End Date RoxannFernie [address], [place] [address] PCP - General Family Medicine 05/09/17 Wheel Braider Relationship Specialty Start Date End Date RoxannFernie [address], [place] [address] PCP - General Family Medicine 05/09/17 Wheel Braider Relationship Specialty Start Date End Date Fernie Hackett JamarcusDO [address], [place] [address] PCP - General Family Medicine 05/09/17 Wheel Braider Relationship Specialty Start Date End Date Fernie Hackett DO [address], [place] [address] PCP - General Family Medicine 05/09/17 Wheel Braider Relationship Specialty Start Date End Date Fernie Hackett DO [address], [place] [address] PCP - General Family Medicine 05/09/17 Wheel Braider Relationship Specialty Start Date End Date TracymonicaFernie noguera DO [address], [place] [address] PCP - General Family Medicine 05/09/17 Flori Mon [facility] Nurse - [employer] 06/26/24 Wheel Braider Relationship Specialty Start Date End Date Fernie Hackett DO [address], [place] [address] PCP - General Family Medicine 05/09/17 Flori Mon [facility] Nurse - [employer] 06/26/24 Wheel Braider Relationship Specialty Start Date End Date TracymonicaFernie noguera DO [address], [place] [address] PCP - General Family Medicine 05/09/17 Flori Mon [facility] Nurse - [employer] 06/26/24 Wheel Braider Relationship Specialty Start Date End Date TracymonicaFernie noguera DO [address], [place] [address] PCP - General Family Medicine 05/09/17 Flori Mon [facility] Nurse - [employer] 06/26/24 Wheel Braider Relationship Specialty Start Date End Date Fernie Hackett DO [address], [place] [address] PCP - General Family Medicine 05/09/17 Flori Mon [facility] Nurse - [employer] 06/26/24 Wheel Braider Relationship Specialty Start Date End Date Fernie Hackett DO [address], [place] [address] PCP - General Family Medicine 05/09/17 Flori Mon [facility] Nurse - [employer] 06/26/24 Wheel Braider Relationship Specialty Start Date End Date Fernie Hackett DO [address], [place] [address] PCP - General Family Medicine 05/09/17 Flori Mon [facility] Nurse - [employer] 06/26/24 Wheel Braider Relationship Specialty Start Date End Date Fernie Hackett DO [address], [place] [address] PCP - General Family Medicine 05/09/17 Flori Mon [facility] Nurse - [employer] 06/26/24 Wheel Braider Relationship Specialty Start Date End Date Fernie Hackett DO [address], [place] [address] PCP - General Family Medicine 05/09/17 Flori Mon [facility] Nurse - [employer] 06/26/24 Wheel Braider Relationship Specialty Start Date End Date Fernie Hackett DO [address], [place] [address] PCP - General Family Medicine 05/09/17 Flori Mon [facility] Nurse - [employer] 06/26/24 Wheel Braider Relationship Specialty Start Date End Date Fernie Hackett DO [address], [place] [address] PCP - General Family Medicine 05/09/17 Flori Mon [facility] Nurse - [employer] 06/26/24 Wheel Braider Relationship Specialty Start Date End Date Fernie Hackett DO [address], [place] [address] PCP - General Family Medicine 05/09/17 Flori Mon [facility] Nurse - [employer] 06/26/24 Wheel Braider Relationship Specialty Start Date End Date Fernie Hackett DO [address], [place] [address] PCP - General Family Medicine 05/09/17 Flori Mon [facility] Nurse - [employer] 06/26/24 Wheel Braider Relationship Specialty Start Date End Date Fernie Hackett DO [address], [place] [address] PCP - General Family Medicine 05/09/17 Flori Alvaes [facility] 06/26/24 Goals (unrecognized section and content) Goals may [...] BE BASED ON THE PRIMARY CLINICAL RECORDS. [employer] provides no warranty or guarantee of the accuracy or completeness of information in this document.
[2024-11-24 11:32] LABS: Basophils Percent Auto 0.4 % (0.2-2.0); Eosinophils Absolute Auto 0.1 10^3/uL (0.0-0.7); Hematocrit 34.9 % (36.0-48.0); Hemoglobin 11.1 g/dL (12.0-16.0); Immature Granulocytes Abs Auto 0.03 10^3/uL (0.00-0.03); Immature Granulocytes Pct Auto 0.4 % (0.0-0.5); Lymphocytes Absolute Auto 1.3 10^3/uL (1.2-3.8); Lymphocytes Percent Auto 17.5 % (20.5-60.0); Mean Corpuscular HGB Conc 31.8 g/dL (29.9-35.2); Mean Corpuscular Hemoglobin 29.8 pg (26.7-34.0); Mean Corpuscular Volume 93.6 fL (81.0-99.0); Mean Platelet Volume 11.1 fL (9.5-13.5); Monocytes Absolute Auto 0.7 10^3/uL (0.3-0.8); Monocytes Percent Auto 9.7 % (1.7-12.0); Platelet Count 201 10^3/uL (150-450); Red Blood Count 3.73 10^6/uL (4.20-5.40); Red Cell Distribution Width 14.8 % (11.0-15.0); White Blood Count 7.1 10^3/uL (4.0-11.0)
[2024-11-24 11:47] LABS: Influenza Virus A Antigen Negative; Influenza Virus B Antigen Negative; Internal Control Within Normal Limits
[2024-11-24 11:48] LABS: Internal Control Within Normal Limits; SARS-CoV-2 Ag NEGATIVE (NEGATIVE)
[2024-11-24 11:53] LABS: Magnesium 1.8 mg/dL (1.8-2.4)
[2024-11-24 11:58] LABS: Alanine Aminotransferase 44 U/L (14-59); Albumin Globulin Ratio 0.9; Albumin Level 3.1 g/dL (3.4-5.0); Alkaline Phosphatase 111 U/L (46-116); Anion Gap 15.6; Aspartate Amino Transferase 37 U/L (15-37); BUN Creatinine Ratio 25.1; Bilirubin Direct 0.1 mg/dL (0.0-0.2); Bilirubin Total 0.4 mg/dL (0.2-1.0); Calcium 9.4 mg/dL (8.5-10.1); Carbon Dioxide 25.5 mmol/L (21.0-32.0); Chloride 107 mmol/L (98-107); Estimated GFR (African America 24 (>=60 mL/min/1.73m^2); Estimated GFR (Non-African Ame 20 (>=60 mL/min/1.73m^2); Globulin 3.6 g/dL; Glucose 256 mg/dL (74-106); Potassium 4.1 mmol/L (3.5-5.1); Sodium 144 mmol/L (136-145); Total Protein 6.7 g/dL (6.4-8.2)
[2024-11-24 12:01] LABS: Bilirubin Urine NEGATIVE (NEGATIVE); Blood Urine SMALL (NEGATIVE); Clarity Urine CLOUDY (CLEAR); Color Urine LT. YELLOW (YELLOW); Glucose Urine UA NEGATIVE (NEGATIVE); Ketones Urine NEGATIVE (NEGATIVE); Leukocyte Esterase Urine MODERATE (NEGATIVE); Nitrite Urine NEGATIVE (NEGATIVE); Protein Urine TRACE mg/dL (NEG/TRACE); Specific Gravity Urine 1.015 (1.005-1.025); Urobilinogen Urine 0.2 EU/dL (0.2-1.0); pH Urine 5.5 (5.0-9.0)
[2024-11-24 12:11] LABS: Bacteria Urine SMALL #/HPF (NONE SEEN); Crystals Seen? None Seen #/HPF (None Seen); Mucus Urine TRACE (NONE SEEN); Squamous Epithelial Cell Urine FEW #/LPF (NONE/RARE); WBC Urine 75-100 #/HPF (NONE SEEN)
[2024-11-24 12:12] LABS: RBC Urine 0-2 #/HPF (0-2); Urine Culture Indicated YES
[2024-11-24 12:16] LABS: Cast Seen? NONE SEEN #/LPF (NONE SEEN)
--- NOTE | 2024-11-24 12:18 | CT_ITS ---
The [address] [address] Patient Name: DAVID DUGAN MRN: [id number] date: 1940 Sex: F Assigned Patient Location: ER Current Patient Location: ER Accession/Order Number: [id number] Exam Date: 11/24/2024 12:10 Report Date: 11/24/2024 12:56 At the request of: CHARLENE PARR Procedure: CT head/brain wo con CT head/brain wo con, 11/24/2024 12:10 PM EST INDICATION: Hallucinations COMPARISON: Prior CT of the head dated 02/15/[address] of the head dated 01/25/2017 TECHNIQUE: Axial CT images of the brain from skull base to vertex, including portions of the face and sinuses, were obtained without contrast . Multiplanar reformatted images were generated and reviewed as needed. Dose reduction techniques were achieved by using automated exposure control and/or adjustment of mA and/or kV according to patient size and/or use of iterative reconstruction technique. FINDINGS: The cerebral sulci as well as ventricular system are enlarged consistent with moderate ex vacuo cerebral volume loss. There is no interval change in size of ventricular system since prior study. There is no intracranial mass, mass effect, midline shift, intra or extra-axial fluid collection or hemorrhage. Periventricular and centrum semiovale hypodensities are most likely consistent with microvascular ischemic changes. There is status post bilateral lens replacement. Mucosal thickening within the right maxillary sinus is noted. The visualized portions of orbits, mastoid air cells as well as remainder of paranasal sinuses are unremarkable. There is no suspicious osteolytic or osteoblastic lesion. CT/CT head/brain wo con IMPRESSION: No acute intracranial process is noted. Ventriculomegaly out of proportion to the sulci enlargement, may suggest normal pressure hydrocephalus in appropriate clinical setting. However, there is no significant interval change in size of ventricular system since 02/15/2024 and there is mild interval increase in size of the ventricular system since 01/25/2017. Electronically authenticated by: KERRY SAN Date: 11/24/2024 12:56
[2024-11-24] MEDS: CEFTRIAXONE 1,000 MG in 0.9 % SODIUM CHLORIDE 50 ML 100 MG IV (12:44)
--- NOTE | 2024-11-24 13:38 | US_ITS ---
[place] [id number] Patient Name: DAVID DUGAN MRN: [id number] date: 1940 Sex: F Assigned Patient Location: [place] Current Patient Location: [place] Accession/Order Number: [id number] Exam Date: 11/24/2024 16:07 Report Date: 11/24/2024 20:05 At the request of: ANGIE IRENE Procedure: US renal BI EXAM: US renal BI , 11/24/2024 HISTORY: acute renal failure COMPARISON: Prior ultrasound from 2018. TECHNIQUE: Multiplanar grayscale and color flow imaging of the kidneys and urinary bladder was performed FINDINGS: The right kidney measures 10.9 x 4.7 x 5 cm. There is mild thinning of the cortex with prominent renal pelvis. Cortical thickness measures 9 mm. The renal volume is decreased compared to the prior scan. The left kidney measures 10.7 x 4.1 x 4.5 cm with mild thinning of the cortex, measuring 9 mm. No hydronephrosis. The renal volume is decreased compared to the prior scan. The urinary bladder measures 10.7 x 11.3 x 10.3 cm. No obvious filling defect is seen. US/US renal BI IMPRESSION: Bilateral mild renal atrophy, without hydronephrosis. Electronically authenticated by: KIYA DAVID Date: 11/24/2024 20:05
--- NOTE | 2024-11-24 13:44 | P.HP_ITS ---
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 Conley), HLD, HTN, COPD, GERD, Gout who presented to the ER today after feeling confused and seeing people out of the corners of her eyes. She says the last few days it's hard for her to remember what shes doing. She was seen in the ER on 11/20/24 and diagnosed with UTI, cultures show ECOLI, she was treated with keflex. She has been having diarrhea about 3-4 times a day with accidents. She says it's been difficult to get her self clean. She denies pain in the bladder but urgency and frequency. She has felt chilled at times. She is alert and oriented x 3 on admission. She says her glucometer quit working and she cannot check her sugars. She has been taking her medications like she should. She resides at home with her . She uses a walker to get around the house. She says it's been difficult at home, due to the accidents and her having to wash clothes. ER findings: UA positive, prior culture positive for Ecoli. WBC's 7.1, Hb 11.1, Creatinine 2.35; CXR shows cardiomegaly, CT head shows cerebral volume loss. Opioid HPI Opioid Management Most Recent Pain and Opioid Data: Last Pain Scale 8 11/24/24 15:00 11/24/24 Last Pain Assessment 11/24/24 15:00 Last MAR Pain Assessment 11/20/24 06:18 Last ORT Total Score 0 11/24/24 14:25 11/24/24 Last ORT Risk Category Low Risk 11/24/24 14:25 11/24/24 Review of Systems ROS Narrative ROS: a complete review of systems were reviewed with patient and are positive as below or listed in History of Chief Complaint. General: fever, chills, no night sweats Head: no headache, trauma, visual changes, but some nausea no vomiting Skin: no reported rashes, itching or sores Eyes: no blurriness of vision Ears: no reported hearing loss, vertigo, earache, or tinnitus Throat: no sore throat, hoarseness, swelling of neck, or tongue pain Heart: no chest pain Lungs: no shortness of breath or cough GI: diarrhea Urinary: urinary urgency, frequency no pain Neuro: no numbness or tingling HEM: no bleeding issues or bruising ENDO: no thyroid problems Psych: no anxiety or depression [facility] Medical History (Updated 11/24/24 @ 15:16 by Marion Harrington DO) GERD without esophagitis ?K21.9 - Gastro-esophageal reflux disease without esophagitis (ICD-10) Gout due to renal impairment ?M10.30 - Gout due to renal impairment, unspecified site (ICD-10) Osteoarthritis ?M19.90 - Unspecified osteoarthritis, unspecified site (ICD-10) Anemia ?D64.9 - Anemia, unspecified (ICD-10) Carpal tunnel syndrome ?G56.00 - Carpal tunnel syndrome, unspecified upper limb (ICD-10) Acid reflux ?K21.9 - Gastro-esophageal reflux disease without esophagitis (ICD-10) Diabetes ?E11.9 - Type 2 diabetes mellitus without complications (ICD-10) Cirrhosis of liver ?K74.60 - Unspecified cirrhosis of liver (ICD-10) Kidney stone ?N20.0 - Calculus of kidney (ICD-10) Kidney failure ?N19 - Unspecified kidney failure (ICD-10) COPD (chronic obstructive pulmonary disease) ?J44.9 - Chronic obstructive pulmonary disease, unspecified (ICD-10) Asthma ?J45.909 - Unspecified asthma, uncomplicated (ICD-10) High cholesterol ?E78.00 - Pure hypercholesterolemia, unspecified (ICD-10) HTN (hypertension) ?I10 - Essential (primary) hypertension (ICD-10) Surgical History History of appendectomy ?Z90.49 - Acquired absence of other specified parts of digestive tract (ICD- 10) History of hysterectomy ?Z90.710 - Acquired absence of both cervix and uterus (ICD-10) History of neck surgery ?Z98.890 - Other specified postprocedural states (ICD-10) Hx of cholecystectomy ?Z90.49 - Acquired absence of other specified parts of digestive tract (ICD- 10) History of lumbar laminectomy ?Z98.890 - Other specified postprocedural states (ICD-10) History of cardiac cath ?Z98.890 - Other specified postprocedural states (ICD-10) Social History Little interest or pleasure in doing things: not at all Feeling down, depressed, or hopeless: not at all Meds Home Medications and Allergies Home Medications ?Medication ?Instructions ?Recorded ?Confirmed ?Type aspirin 81 mg tablet,delayed 81 mg PO DAILY 04/26/23 11/24/24 History release atorvastatin 80 mg tablet 80 mg PO DAILY 04/26/23 11/24/24 History baclofen 10 mg tablet 10 mg PO .QHS 04/26/23 11/24/24 History insulin lispro 100 unit/mL 6 unit subcut BIDWM 04/26/23 11/24/24 History subcutaneous pen theophylline 400 mg 400 mg PO .QHS 04/26/23 11/24/24 History tablet,extended release 24 hr cephalexin 500 mg capsule 500 mg PO TID 7 days #21 caps 11/20/24 11/24/24 Rx allopurinol 100 mg tablet 100 mg PO BID 11/24/24 11/24/24 History carvedilol 6.25 mg tablet 6.25 mg PO BID 11/24/24 11/24/24 History famotidine 20 mg tablet 20 mg PO BID 11/24/24 11/24/24 History fluticasone furoate 200 1 inh inhalation Q24H 11/24/24 11/24/24 History mcg-vilanterol 25 mcg/dose inhalation powder (Breo Ellipta) furosemide 40 mg tablet 80 mg PO BID 11/24/24 11/24/24 History insulin glargine 100 unit/mL (3 46 unit subcut .qhs 11/24/24 11/24/24 History mL) subcutaneous pen (Lantus Solostar U-100 Insulin) levocetirizine 5 mg tablet 5 mg PO .QHS 11/24/24 11/24/24 History montelukast 10 mg tablet 10 mg PO .QHS 11/24/24 11/24/24 History pregabalin 75 mg capsule (Lyrica) 75 mg PO DAILY 11/24/24 11/24/24 History ramipril 10 mg capsule 10 mg PO .QHS 11/24/24 11/24/24 History tramadol 100 mg tablet,extended 100 mg PO DAILY 11/24/24 11/24/24 History release 24 hr Allergies Allergy/AdvReac Type Severity Reaction Status Date / Time adhesive tape Allergy Unknown rash Verified 11/20/24 03:48 povidone-iodine (From Allergy Unknown Rash Verified 11/20/24 03:48 Betadine) red dye Allergy Unknown Rash Verified 11/20/24 03:48 Sulfa (Sulfonamide Allergy Unknown Rash Verified 11/20/24 03:48 Antibiotics) tetracycline Allergy Unknown Rash Verified 11/20/24 03:48 Exam Narrative Exam Narrative: General: Patient is alert, and oriented to person, place and time with normal affect, proper hygiene, central obesity Skin: right groin with candidal rash Head: atraumatic, acephalic Eyes: PERRLA, no nystagmus present, conjunctiva clear, no scleral icterus Ears: normal gross auditory acuity Nose: symmetric, no discharge, no maxillary or frontal sinus tenderness Neck: no masses palpated, normal thyroid Heart: Normal rate and rhythm, no murmurs/rubs/gallops Lungs: no audible wheezes, crackles and normal breath sounds all lung valentin Abdomen: Normal audible bowel sounds, no distension, No palpable masses, no organomegaly, no rebound/guarding/ or rigidity Musculoskeletal: mild swelling bilateral lower extremities Neuro: CN II-X grossly intact Constitutional Vital Signs, click to edit/add: Last Vital Signs Temp 97.6 F 11/24/24 10:46 Pulse 74 11/24/24 12:31 Resp 13 11/24/24 12:31 BP 157/88 H 11/24/24 12:31 Pulse Ox 99 11/24/24 12:31 O2 Del Method Room Air 11/24/24 10:46 Results Labs Labs: Short CBC 11/24/24 Range/Units 10:54 WBC 7.1 (4.0-11.0) 10^3/uL Hgb 11.1 L (12.0-16.0) g/dL Hct 34.9 L (36.0-48.0) % Plt Count 201 (150-450) 10^3/uL BMP 11/24/24 10:54 Sodium 144 Potassium 4.1 Chloride 107 Carbon Dioxide 25.5 BUN 59.0 H Creatinine 2.35 H Glucose 256 H Calcium 9.4 Liver Function 11/24/24 Range/Units 10:54 Total Bilirubin 0.4 (0.2-1.0) mg/dL Direct Bilirubin 0.1 (0.0-0.2) mg/dL AST 37 (15-37) U/L ALT 44 (14-59) U/L Alkaline Phosphatase 111 (46-116) U/L Albumin 3.1 L (3.4-5.0) g/dL Urine 11/24/24 Range/Units 11:40 Urine Color Lt. yellow (YELLOW) Urine Clarity Cloudy A (CLEAR) Urine pH 5.5 (5.0-9.0) Ur Specific [place] 1.015 (1.005-1.025) Urine Protein Trace (NEG/TRACE) mg/dL Urine Glucose (UA) Negative (NEGATIVE) mg/dL Assessment and Plan Assessment and Plan (1) Urinary tract infection: Assessment and Plan: due to Ecoli, based on cultures from 11/20/23. Will treat with IV rocephin 1 gram daily, pending new culture, normal wbc's Qualifiers: Urinary tract infection type: acute cystitis Hematuria presence: without hematuria Qualified Code(s): N30.00 - Acute cystitis without hematuria (2) RENÉ (acute kidney injury): Assessment and Plan: Cr was 2.35 up from baseline that is 1.7, gentle hydration with LR @50 careful to not fluid overload, will also check ultrasound of KUB (3) Diarrhea: Assessment and Plan: will check stool culture, recent antibiotic use, possible C. Diff? Qualifiers: Diarrhea type: unspecified type Qualified Code(s): R19.7 - Diarrhea, unspecified (4) Visual hallucinations: Assessment and Plan: secondary to UTI and infectious diarrhea. CT head ok (5) Acute metabolic encephalopathy: Assessment and Plan: secondary to UTI and infectious diarrhea. CT head ok (6) Lumbar stenosis with neurogenic claudication: Assessment and Plan: continue lyrica, and tramdol (7) Chronic kidney disease: Assessment and Plan: monitor Qualifiers: Chronic kidney disease stage: stage 3 (moderate) Chronic kidney disease stage 3 subtype: stage 3b (GFR 30-44) Qualified Code(s): N18.32 - Chronic kidney disease, stage 3b (8) Diabetes: Assessment and Plan: will check ha1c in the morning, accuchecks with long acting and SSI Qualifiers: Diabetes mellitus type: type 2 Diabetes mellitus long term care social worker insulin use: with long term care social worker use Diabetes mellitus complication status: with kidney compl ications Diabetes mellitus complication detail: with chronic kidney disease Chronic kidney disease stage: stage 3 (moderate) Chronic kidney disease stage 3 subtype: stage 3b (GFR 30-44) Qualified Code(s): E11.22 - Type 2 diabetes mellitus with diabetic chronic kidney disease; N18.32 - Chronic kidney disease, stage 3b; Z79.4 - penitentiary (current) use of insulin (9) COPD (chronic obstructive pulmonary disease): Assessment and Plan: continue breo and nebs as needed. 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 continue heparin for DVT prophylaxis Patient is inpatient status and expected to cross 2 midnights for hospital necessary care. Urinary Catheter Management Urinary Catheter Management Straight: Cath placed during this visit: yes Urethral indwelling: Yes Reason for continuing: acute urinary retention Insertion date: 11/24/24
[2024-11-24 14:14] LABS: Thyroid Stimulating Hormone 2.608 uIU/mL (0.358-3.740)
--- OUTSIDE RECORDS SUMMARY | 2024-11-24 14:24 | XMS_ITS | CCD ---
Author Organization [facility] Care Team Providers Care Promotional Marketing Agent Name Role Phone ROBERTO PARHAMAB A Attending [...] ., JONNY Consulting Unavailable FURLONG, DR FERNIE iRcketts Primary Care Unavailable STERN ., DR LUISA [...] Admitting Unavailable Furlong DOFernie Primary Care Provider [phone] MOE PARHAM Attending Unavailable DARELL SYLVESTER Attending Unavailable Furlong, DO Enciso Primary Care Provider MD Gia Munoz Attending Provider [phone] Gia Munoz Attending Unavailable TammyGia Admitting [...] Attending Unavailable Furlong DOFernie Primary Care Provider Gaetano Viera DO Attending Provider Unavailab le [...] FERNIE Jamarcus Primary Care Unavailable FURLONG, FERNIE Rikcetts Referring Unavailable FURLONG, FERNIE Ricketts Primary Care [...] Tape Substance Allergy 04-24-20 13 The [facility] Povidone-Iodine (1 source) Povidone-Iodine Drug Allergy 04-24-20 13 The [facility] Sulfonamides (antibiotic) (1 source) Sulfonamides (Antibiotic) Drug Allergy 04-24-20 13 The [facility] Tetracyclines (antibiotic) (1 source) Tetracyclines Drug Allergy 04-24-20 13 The [facility] (20 sources) Povidone-Iodine; Translations: [POVIDONE-IODINE] Drug Allergy 11-25-19 15 rash [employer] Other (10 sources) Sulfonamides (Antibiotic) Propensity to adverse reactions Managed by [facility] [employer] Other (13 sources) Tetracycline Drug Allergy 11-16-19 24 [facility] (12 sources) Adhesive 1 x6yd Drug allergy 11-08-20 23 [facility] (12 sources) Amlodipine & Diet Manage Prod Drug allergy 11-08-20 23 [facility] (2 sources) Povidone-Iodine; Translations: [Betadine] Drug Allergy 04-23-20 13 rash [facility] Repository (20 sources) Contrast media; Translations: [RED DYE] Drug allergy (disorder) 05-04-20 17 Rash [facility] Repository (4 sources) Desonide Drug Allergy 04-23-20 13 Rash [facility] Repository (1 source) Sulfonamides (Antibiotic) Drug allergy (disorder) 04-23-20 13 The [facility] Repository (1 source) Tetracycline Drug Allergy 04-23-20 13 The [facility] Repository (20 sources) Adhesive agent; Translations: [ADHESIVE] Propensity to adverse reactions to drug 11-25-19 15 Other (See Comments), Itching [facility] (20 sources) dilTIAZem; Translations: [DILTIAZEM] Drug Allergy 09-01-20 [facility] Work Phone: (20 sources) Linagliptin; Translations: [LINAGLIPTIN] Drug Allergy 09-01-20 [facility] (20 sources) Sulfonamides (Antibiotic); Translations: [SULFA (SULFONAMIDE ANTIBIOTICS)] Propensity to adverse reactions to drug 11-25-19 15 [facility] (20 sources) Tetracycline (class of antibiotic); Translations: [TETRACYCLINES] Propensity to adverse reactions to drug 11-25-19 15 [facility] (20 sources) Adhesive Tape-Silicones; Translations: [ADHESIVE TAPE-SILICONES] Propensity to adverse reactions to drug 05-04-20 [facility] Work Phone: (1 source) Adhesive Tape Drug allergy (disorder) 11-16-19 [facility] Repository (1 source) Contrast media Drug allergy (disorder) 11-16-19 [facility] Repository (1 source) Povidone-Iodine Drug Allergy 11-16-19 [facility] Repository (1 source) Sulfonamides (Antibiotic) Drug allergy (disorder) 11-16-19 [facility] Repository (1 source) Tetracycline Drug Allergy 11-16-19 [facility] Repository (20 sources) Sulfa Dyne; Translations: [SULFA DYNE] Propensity to adverse reactions to drug 09-14-20 [facility] Medications Current Medications Medication Drug Class(es) [...] as needed Orally TWICE A DAY Active [id number] 200 actuat albuterol 0.09 mg/actuat metered dose [...] 11-18-2024 blood-glucose meter (TRUE METRIX GLUCOSE METER) [facility] [place] Unit by miscellaneous route in the [...] sources) Start: 2023 diaper,brief,adult,disposabl e (ALWAYS DISCREET) [facility] Indications: Urinary incontinence, unspecified type 1 Unit by miscellaneous route every 2 (two) hours as needed (incontinence). 360 each 5 02/25/2024 Active 0.5 ml dulaglutide 1.5 mg/ml auto-injector (1 source) GLP-1 Receptor Agonist Trulicity 0.75 MG/0. 5ML as directed Subcutaneous ONCE A WEEK Active estrogens, conjugated (snf) 0.625 mg/ml vaginal cream (5 sources) Estrogen [...] April 30, 2024 11:00pm Fish,Bora,Flax Oils-Om3,6,9n o1 ([place] 3-6-9) 1,200 mg capsule (2 sources) Start: 05-01-2024 Fish,Bora,Flax Oils-Om3,6,9no1 ([place] 3-6-9) 1,200 mg capsule Active CAP PO April 30, 2024 11:00pm Start: 05-01-2024 Fish,Bora,Flax Oils-Om3,6,9no1 ([place] 3-6-9) 1,200 mg capsule Active CAP PO [...] disease, with long-term current use of insulin [place] Inject 46 Units under the skin in [...] For Her 50 + - Orally Active fztfaozi-mxfa-IS-calcium &mi ns (THERAGRAN-M) 9 mg iron-400 mcg tablet (20 sources) soypxbet-ttao-VI -calcium &mins (THERAGRAN-M) 9 mg iron-400 mcg tablet Take 1 tablet by mouth in the morning. 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 USE OF INSULIN] Onset: 11-11-2022 Episodic [...] 11-17-2024 Magnesium [Mass/Vol] 1.8 mg/dL Normal 1.8-2.6 [facility] Comment on above: Performed By: #### 1 9123-9 ####[facility] ([id number])[address] [place] [address] 74361 MAGNESIUMon 11-10-2024 Magnesium [Mass/Vol] 1.8 mg/dL Normal 1.8-2.6 [facility] Comment on above: Performed By: #### 1 9123-9 ####[facility] ([id number])[address] [place] [address] 23784 MAGNESIUMon 11-03-2024 Magnesium [Mass/Vol] 1.7 mg/dL Low 1.8-2.6 [facility] Comment on above: Performed By: #### 1 9123-9 ####[facility] ([id number])[address] [place] [address] 32233 MAGNESIUMon 10-27-2024 Magnesium [Mass/Vol] 1.8 mg/dL Normal 1.8-2.6 [facility] Comment on above: Performed By: #### 1 9123-9 ####[facility] ([id number])[address] [place] [address] 77297 MAGNESIUMon 10-20-2024 Magnesium [Mass/Vol] 1.9 mg/dL Normal 1.8-2.6 [facility] Comment on above: Performed By: #### 1 9123-9 ####[facility] ([id number])[address] [place] [address] 83516 MAGNESIUMon 10-13-2024 Magnesium [Mass/Vol] 1.8 mg/dL Normal 1.8-2.6 [facility] Comment on above: Performed By: #### 1 9123-9 ####[facility] ([id number])[address] [place] [address] 66060 MAGNESIUMon 10-06-2024 Magnesium [Mass/Vol] 1.7 mg/dL Low 1.8-2.6 [facility] Comment on above: Performed By: #### 1 9123-9 ####[facility] ([id number])[address] [place] [address] 73406 MAGNESIUMon 09-29-2024 Magnesium [Mass/Vol] 1.7 mg/dL Low 1.8-2.6 [facility] Comment on above: Performed By: #### 1 9123-9 ####[facility] ([id number])[address] [place] [address] 05018 Glucose Glucometer (BldC) [M ass/Vol]on 09-26-2024 Glucose [Mass/Vol] 154 mg/dL High 65-99 [facility] Surgical Pathologyon 024 Surgical Pathology Normal [facility] Comment on above: Result Comment: [facility] [address] [place] [address] Surgical Pathology ConsultationPatient Name:ADORE DUGAN:1940 (Age: 83)Gender:FTaken:4Reported:10/01/2024hysician(s):Daniel Guerrero MD ([phone])Copy To: Rec. #:[id number]: #[id number] Pathologic Diagnosis1. Duodenum, second portion, biopsy: Duodenal mucosa with no significant diagnostic abnormality. No evidence of celiac disease.2. Duodenum, bulb, biopsy: Ectopic gastric mucosa.3. Stomach, polypectomy: Fundic gland polyp.4. Esophagus, distal, biopsy: Junctional mucosa with no significant diagnostic abnormality. No evidence of intestinal metaplasia. Report Electronically Signed Outrg/10/01/2024paula Coto MD[place] [address], License number: [id number].Clinical History Ross's esophagus.Gross Description1. Received in formalin labeled [facility], second portion of duodenum are two light abbott soft tissue bits, 0.2 cm each. The specimen is filtered and entirely submitted in a single cassette. (1, ns, Q20-62071-8,m3) DM.2. .Received in formalin labeled [facility], duodenal bulb biopsies are three light abbott soft tissue bits, 0.2 cm each. The specimen is filtered and entirely submitted in a single cassette. (1, ns, Q60-10747-6,m3) DM.3. Received in formalin labeled [facility], fundic gland polyp is a light abbott soft tissue bit, 0.3 cm. The specimen is filtered and entirely submitted in a single cassette. (1, ns, G31-40136-6,m3) DM.4. Received in formalin labeled [facility], distal esophageal biopsy are three pale-abbott soft tissue bits, 0.2 cm each. The specimen is filtered and entirely submitted in a single cassette. (1, ns, H26-91911-2,m3) DM.dm/09/27/2024GRSpecimen(s) Received1: Second portion of duodenum biopsies2: Duodenal bulb biopsy3: Fundic gland polyp4: Esophageal distal biopsyFee Codes(s):1; 235850; 885053; 231985; 77495 MAGNESIUMon 09-22-2024 Magnesium [Mass/Vol] 1.8 mg/dL Normal 1.8-2.6 [facility] Comment on above: Performed By: #### 1 9123-9 ####[facility] ([id number])[address] [place] [address] 74483 MAGNESIUMon 09-15-2024 Magnesium [Mass/Vol] 1.8 mg/dL Normal 1.8-2.6 [facility] Comment on above: Performed By: #### 1 9123-9 ####[facility] ([id number])[address] [place] [address] 99056 MAGNESIUMon 09-08-2024 Magnesium [Mass/Vol] 1.7 mg/dL Low 1.8-2.6 [facility] Comment on above: Performed By: #### 1 9123-9 ####[facility] ([id number])[address] [place] [address] 04837 MAGNESIUMon 09-01-2024 Magnesium [Mass/Vol] 1.8 mg/dL Normal 1.8-2.6 [facility] Comment on above: Performed By: #### 1 9123-9 ####[facility] ([id number])[address] [place] [address] 74698 MAGNESIUMon 08-25-2024 Magnesium [Mass/Vol] 1.6 mg/dL Low 1.8-2.6 [facility] Comment on above: Performed By: #### 1 9123-9 ####[facility] ([id number])[address] [place] [address] 39173 MAGNESIUMon 08-18-2024 Magnesium [Mass/Vol] 1.6 mg/dL Low 1.8-2.6 [facility] Comment on above: Performed By: #### 1 9123-9 ####[facility] ([id number])[address] [place] [address] 51239 MAGNESIUMon 08-11-2024 Magnesium [Mass/Vol] 1.6 mg/dL Low 1.8-2.6 [facility] Comment on above: Performed By: #### 1 9123-9 ####[facility] ([id number])[address] [place] [address] 39158 MAGNESIUMon 08-04-2024 Magnesium [Mass/Vol] 1.5 mg/dL Low 1.8-2.6 [facility] Comment on above: Performed By: #### 1 9123-9 ####[facility] ([id number])[address] [place] [address] 18369 MAGNESIUMon 07-28-2024 Magnesium [Mass/Vol] 1.5 mg/dL Low 1.8-2.6 [facility] Comment on above: Performed By: #### 1 9123-9 ####[facility] ([id number])[address] [place] [address] 04410 MAGNESIUMon 07-21-2024 Magnesium [Mass/Vol] 1.6 mg/dL Low 1.8-2.6 [facility] Comment on above: Performed By: #### 1 9123-9 ####[facility] ([id number])[address] [place] [address] 32451 MAGNESIUMon 07-15-2024 Magnesium [Mass/Vol] 1.5 mg/dL Low 1.8-2.6 [facility] Comment on above: Performed By: #### 1 9123-9 ####[facility] ([id number])[address] [place] [address] 04693 MAGNESIUMon 07-07-2024 Magnesium [Mass/Vol] 1.6 mg/dL Low 1.8-2.6 [facility] Comment on above: Performed By: #### 1 9123-9 ####[facility] ([id number])[address] [place] [address] 89648 MAGNESIUMon 06-30-2024 Magnesium [Mass/Vol] 1.6 mg/dL Low 1.8-2.6 [facility] Comment on above: Performed By: #### 1 9123-9 ####[facility] ([id number])[address] [place] [address] 44194 MAGNESIUMon 06-23-2024 Magnesium [Mass/Vol] 1.7 mg/dL Low 1.8-2.6 [facility] Comment on above: Performed By: #### 1 9123-9 ####[facility] ([id number])[address] [place] [address] 45681 MAGNESIUMon 06-16-2024 Magnesium [Mass/Vol] 1.7 mg/dL Low 1.8-2.6 [facility] Comment on above: Performed By: #### 1 9123-9 ####[facility] ([id number])[address] [place] [address] 91007 MAGNESIUMon 06-09-2024 Magnesium [Mass/Vol] 1.7 mg/dL Low 1.8-2.6 [facility] Comment on above: Performed By: #### 1 9123-9 ####[facility] ([id number])[address] [place] [address] 39388 MAGNESIUMon 06-02-2024 Magnesium [Mass/Vol] 1.6 mg/dL Low 1.8-2.6 [facility] Comment on above: Performed By: #### 1 9123-9 ####[facility] ([id number])[address] [place] [address] URINE CULTUREon 05-30-2024 Bacteria identified Cx Nom [...] F TRIMETH/SULFAMETHOXAZOL E S <=11/30 F Susceptible [facility] Comment on above: Performed By: #### 6 30-4 #### [facility] ([id number]) [address] [place] [address] URINE CULTUREon 05-27-2024 Bacteria identified Cx Nom (U) CULTURE RESULTS MULTIPLE SPECIES PRESENT. PROBABLE COLLECTION CONTAMINATION. SUGGEST REPEAT SPECIMEN. Normal [facility] Comment on above: Performed By: #### 6 30-4 #### [facility] ([id number]) [address], [address] [place] [address] MAGNESIUMon 05-26-2024 Magnesium [Mass/Vol] 1.6 mg/dL Low 1.8-2.6 [facility] Comment on above: Performed By: #### 1 9123-9 ####[facility] ([id number])[address] [place] [address] 94351 MAGNESIUMon 05-19-2024 Magnesium [Mass/Vol] 1.7 mg/dL Low 1.8-2.6 [facility] Comment on above: Performed By: #### 1 9123-9 ####[facility] ([id number])[address] [place] [address] 32084 MAGNESIUMon 05-12-2024 Magnesium [Mass/Vol] 1.6 mg/dL Low 1.8-2.6 [facility] Comment on above: Performed By: #### 1 9123-9 ####[facility] ([id number])[address], [address] [place] [address] 58717 MAGNESIUMon 05-05-2024 Magnesium [Mass/Vol] 1.4 mg/dL Low 1.8-2.6 [facility] Comment on above: Performed By: #### 1 9123-9 ####[facility] ([id number])[address] [place] [address] 20976 MAGNESIUMon 04-28-2024 Magnesium [Mass/Vol] 1.5 mg/dL Low 1.8-2.6 [facility] Comment on above: Performed By: #### 1 9123-9 ####[facility] ([id number])[address] [place] [address] 15613 COMPLETE BLOOD COUNTon 04-21 Erythrocyte distribution width (RBC) [Ratio] 16.6 % High 11.5-15.0 [facility] Comment on above: Performed By: #### C BC, UPCR, FEPR, 97499-4, RENAL, 3084-1, 2276-4, 2731-8, 27685-7 ####[facility] ([id number])[address], [address] [place] [address] 16184 Hematocrit (Bld) [Volume fraction] 33.8 % Low 35-47 [facility] Comment on above: Performed By: #### C BC, UPCR, FEPR, 06654-9, RENAL, 3084-1, 2276-4, 2731-8, 79757-4 ####[facility] ([id number])[address], [address], [place] [address] Hemoglobin (Bld) [Mass/Vol] 11.0 g/dL Low 11.7-15.5 [facility] Comment on above: Performed By: #### C BC, UPCR, FEPR, 32702-7, RENAL, 3084-1, 2276-4, 2731-8, 14920-3 ####[facility] ([id number])[address], [address] [address] MCH (RBC) [Entitic mass] 30.0 pg Normal 27-34 [facility] Comment on above: Performed By: #### C BC, UPCR, FEPR, 87228-8, RENAL, 3084-1, 2276-4, 2731-8, 56246-9 ####[facility] ([id number])[address], [address] [place] [address] 61714 MCHC (RBC) [Mass/Vol] 32.7 g/dL Normal 32-36 [facility] Comment on above: Performed By: #### C BC, UPCR, FEPR, 16770-7, RENAL, 3084-1, 2276-4, 2731-8, 49401-5 ####[facility] ([id number])[address], [address] [place] [address] 21750 MCV (RBC) [Entitic vol] 92 fL Normal 80-100 [facility] Comment on above: Performed By: #### C BC, UPCR, FEPR, 43167-5, RENAL, 3084-1, 2276-4, 2731-8, 60871-4 ####[facility] ([id number])[address], [address] [facility] [place] [place] [address] Platelet mean volume (Bld) [Entitic vol] 9.5 fL Normal 7-12 [facility] Comment on above: Performed By: #### C BC, UPCR, FEPR, 31542-2, RENAL, 3084-1, 2276-4, 2731-8, 20321-4 ####[facility] ([id number])[address] [address] [place] [address] 18690 Platelets (Bld) [#/Vol] 182 10*3/uL Normal 150-450 [facility] Comment on above: Performed By: #### C BC, UPCR, FEPR, 79817-8, RENAL, 3084-1, 2276-4, 2731-8, 15333-3 ####[facility] ([id number])[address], [address] [place] [address] 60898 RBC COUNT 3.68 X10E12/L Low 3.80-5.20 [facility] Comment on above: Performed By: #### C BC, UPCR, FEPR, 00897-5, RENAL, 3084-1, 2276-4, 2731-8, 61855-0 ####[facility] ([id number])[address] [address] [place] [address] 16448 WBC (Bld) [#/Vol] 6.2 10*3/uL Normal 4.0-11.0 [facility] Comment on above: Performed By: #### C BC, UPCR, FEPR, 98449-8, RENAL, 3084-1, 2276-4, 2731-8, 37494-0 ####[facility] ([id number])[address] [address] [place] [address] 47997 FERRITINon 04-21-2024 Ferritin [Mass/Vol] 113 ng/mL Normal 11-307 [facility] Comment on above: Performed By: #### C BC, UPCR, FEPR, 74668-4, RENAL, 3084-1, 2276-4, 2731-8, 83227-3 ####[facility] ([id number])[address] [address] [place] [address] 79874 IRON PROFILEon 04-21-2024 Iron [Mass/Vol] 56 ug/dL Normal 50-170 [facility] Comment on above: Performed By: #### C BC, UPCR, FEPR, 17922-8, RENAL, 3084-1, 2276-4, 2731-8, 03269-9 ####[facility] ([id number])[address], [address] [place] [address] IRON BINDING 307 ug/dL Normal 250-425 [facility] Comment on above: Performed By: #### C BC, UPCR, FEPR, 42312-7, RENAL, 3084-1, 2276-4, 2731-8, 26955-7 ####[facility] ([id number])[address], [address], [place] [address] IRON SATURATION 18 % SATURATION Normal 15-50 [facility] Comment on above: Performed By: #### C BC, UPCR, FEPR, 24740-1, RENAL, 3084-1, 2276-4, 2731-8, 76145-8 ####[facility] ([id number])[address], [address], [place] [address] MAGNESIUMon 04-21-2024 Magnesium [Mass/Vol] 1.4 mg/dL Low 1.8-2.6 [facility] Comment on above: Performed By: #### C BC, UPCR, FEPR, 15169-3, RENAL, 3084-1, 2276-4, 2731-8, 30937-3 ####[facility] ([id number])[address], [place] [address] PROTEIN CREAT RATIOon 2023 RANDOM URINE PROTEIN 470 mg/L High <120 [facility] Comment on above: Performed By: #### C BC, UPCR, FEPR, 14123-1, RENAL, 3084-1, 2276-4, 2731-8, 46927-0 ####[facility] ([id number])[address], [place] [address] U/PRO/SURGERY TECH RATIO CALC 0.50 High <0.2 [facility] Comment on above: Result Comment: Neph rotic Syndrome is associated with ratios >3.5 Performed By: #### C BC, UPCR, FEPR, 81713-0, RENAL, 3084-1, 2276-4, 2731-8, 10220-1 ####[facility] ([id number])[address], [address], [place] [address] URINE CREATININE,RDM 94.29 mg/dL Normal [facility] Comment on above: Performed By: #### C BC, UPCR, FEPR, 81755-5, RENAL, 3084-1, 2276-4, 2731-8, 29608-3 ####[facility] ([id number])[address], [address], [place] [address] Parathyrin.intact [Mass/Vol] on 04-21-2024 PTH INTACT 168 pg/mL High 12-88 [facility] Comment on above: Performed By: #### C BC, UPCR, FEPR, 74325-0, RENAL, 3084-1, 2276-4, 2731-8, 27024-9 ####[facility] ([id number])[address], [address], [place] [address] RENAL PANELon 04-21-2024 Albumin [Mass/Vol] 3.7 g/dL Normal 3.2-5.3 [facility] Comment on above: Performed By: #### C BC, UPCR, FEPR, 91037-7, RENAL, 3084-1, 2276-4, 2731-8, 58526-6 ####[facility] ([id number])[address], [place] [address] Anion gap [Moles/Vol] 11 mmol/L Normal 5-15 [facility] Comment on above: Performed By: #### C BC, UPCR, FEPR, 84095-0, RENAL, 3084-1, 2276-4, 2731-8, 85159-1 ####[facility] ([id number])[address] [address], [place] [address] Calcium [Mass/Vol] 8.9 mg/dL Normal 8.5-10.5 [facility] Comment on above: Performed By: #### C BC, UPCR, FEPR, 14860-8, RENAL, 3084-1, 2276-4, 2731-8, 02297-1 ####[facility] ([id number])[address] [address] [place] [address] 14502 Chloride [Moles/Vol] 106 mmol/L Normal 98-109 [facility] Comment on above: Performed By: #### C BC, UPCR, FEPR, 35735-9, RENAL, 3084-1, 2276-4, 2731-8, 51218-0 ####[facility] ([id number])[address] [address] [place] [address] [id number] CO2 [Moles/Vol] 26 mmol/L Normal 22-32 [facility] Comment on above: Performed By: #### C BC, UPCR, FEPR, 89761-1, RENAL, 3084-1, 2276-4, 2731-8, 38580-3 ####[facility] ([id number])[address] [address] [place] [address] Creatinine [Mass/Vol] 1.78 mg/dL High 0.40-1.00 [facility] Comment on above: Result Comment: METH OD TRACEABLE TO IDMS STANDARD Performed By: #### C BC, UPCR, FEPR, 03855-0, RENAL, 3084-1, 2276-4, 2731-8, 86614-6 ####[facility] ([id number])[address] [address] [place] [address]227 GFR/1.73 sq M.predicted among non-blacks MDRD (S/P/Bld) [Vol rate/Area] 28 mL/min/{1.73_m2} Low >59 [facility] Comment on above: Result Comment: Repo rted eGFR is based on theCKD-EPI 2020 equation that doesnot use a race coefficient. Performed By: #### C BC, UPCR, FEPR, 36530-4, RENAL, 3084-1, 2276-4, 2731-8, 34956-9 ####[facility] ([id number])[address], [place] [address] Glucose [Mass/Vol] 157 mg/dL High 65-99 [facility] Comment on above: Performed By: #### C BC, UPCR, FEPR, 66126-1, RENAL, 3084-1, 2276-4, 2731-8, 83377-0 ####[facility] ([id number])[address], [place] [address] Phosphate [Mass/Vol] 3.8 mg/dL Normal 2.4-4.9 [facility] Comment on above: Performed By: #### C BC, UPCR, FEPR, 06432-9, RENAL, 3084-1, 2276-4, 2731-8, 47145-9 ####[facility] ([id number])[address], [place] [address] Potassium [Moles/Vol] 4.2 mmol/L Normal 3.5-5.0 [facility] Comment on above: Performed By: #### C BC, UPCR, FEPR, 06624-9, RENAL, 3084-1, 2276-4, 2731-8, 33234-9 ####[facility] ([id number])[address], [place] [address] Sodium [Moles/Vol] 143 mmol/L Normal 134-146 [facility] Comment on above: Performed By: #### C BC, UPCR, FEPR, 43525-3, RENAL, 3084-1, 2276-4, 2731-8, 68897-8 ####[facility] ([id number])[address], [address], [place] [address] Urea nitrogen [Mass/Vol] 42 mg/dL High 5-27 [facility] Comment on above: Performed By: #### C BC, UPCR, FEPR, 31727-5, RENAL, 3084-1, 2276-4, 2731-8, 03278-9 ####[facility] ([id number])[address], [address], [place] [address] URIC ACIDon 04-21-2024 Urate [Mass/Vol] 4.3 mg/dL Normal 2.6-7.2 [facility] Comment on above: Performed By: #### C BC, UPCR, FEPR, 85371-9, RENAL, 3084-1, 2276-4, 2731-8, 95928-7 ####[facility] ([id number])[address], [address], [place] [address] URINALYSISon 04-21-2024 Bilirubin Ql (U) Negative Normal NEG [facility] Comment on above: Performed By: #### U A ####[facility] ([id number])[address], [address], [place] [address] BLOOD/HGB Trace Abnormal NEG [facility] Comment on above: Performed By: #### U A ####[facility] ([id number])[address], [address], [place] [address] Color (U) YELLOW Normal YELLOW [facility] Comment on above: Performed By: #### U A ####[facility] ([id number])[address], [address], [place] [address] Glucose Ql (U) Negative Normal NEG [facility] Comment on above: Performed By: #### U A ####[facility] ([id number])[address], [address], [place] [address] Ketones Ql (U) Negative Normal NEG [facility] Comment on above: Performed By: #### U A ####[facility] ([id number])[address], [address], [place] [address] Leukocyte esterase Test strip Ql (U) Large Abnormal NEG [facility] Comment on above: Performed By: #### U A ####[facility] ([id number])[address], [address] [address] MUCOUS PRESENT Abnormal NONE [facility] Comment on above: Performed By: #### U A ####[facility] ([id number])[address] [place] [address] Nitrite Ql (U) Negative Normal NEG [facility] Comment on above: Performed By: #### U A ####[facility] ([id number])[address] [address] pH (U) 6.0 [pH] Normal 5.0-8.5 [facility] Comment on above: Performed By: #### U A ####[facility] ([id number])[address], [address], [place] [address] Protein Ql (U) 50 mg/dL Abnormal NEG [facility] Comment on above: Performed By: #### U A ####[facility] ([id number])[address], [address], [place] [address] R.B.CELLS 5 /hpf Normal 0-5 [facility] Comment on above: Performed By: #### U A ####[facility] ([id number])[address], [address], [place] [address] Specific gravity (U) [Rel density] 1.014 Normal 1.003-1.035 [facility] Comment on above: Performed By: #### U A ####[facility] ([id number])[address] [place] [address] [address], [place] [address] SQUAMOUS EPITHELIUM 1 /hpf Normal 0-5 [facility] Comment on above: Performed By: #### U A ####[facility] ([id number])[address] [place] [address] [address], [place] [address] TURBIDITY HAZY Abnormal CLEAR [facility] Comment on above: Performed By: #### U A ####[facility] ([id number])[address] [place] [address] [address], [place] [address] Urobilinogen (U) [Mass/Vol] mg/dL Normal <1.1 [facility] Comment on above: Performed By: #### U A ####[facility] ([id number])[address] [place] [address] [address], [place] [address] W.B.CELLS 455 /hpf High 0-5 [facility] Comment on above: Performed By: #### U A ####[facility] ([id number])[address] [place] [address] [address], [place] [address] WBC CLUMPS RARE Abnormal NONE [facility] Comment on above: Performed By: #### U A ####[facility] ([id number])[facility] [address], [place] [address] Vitamin D+Metabolites [Mass/ Vol]on 04-21-2024 VITAMIN D 25 HYD TOT 32.8 ng/mL Normal 30-100 [facility] Comment on above: Result Comment: Radha min D status 25 [place] Vitamin D Deficiency <20 ng/mLInsufficiency 20-29 ng/mLSufficiency 30-100 ng/mLToxicity >100 ng/mLNOTE: A pediatric reference range has not beenestablished by the misdraw hand of this kit.The [place] [employer] recommendsa Vitamin D level of = or >20ng/mL in infantsand children. Performed By: #### C BC, UPCR, FEPR, 69549-3, RENAL, 3084-1, 2276-4, 2731-8, 53672-0 ####[facility] ([id number])[address] [place] [address], [address] [place] [address] MAGNESIUMon 04-14-2024 Magnesium [Mass/Vol] 1.6 mg/dL Low 1.8-2.6 [facility] Comment on above: Performed By: #### 1 9123-9 ####[facility] ([id number])[address] [place] [address] MAGNESIUMon 04-08-2024 Magnesium [Mass/Vol] 1.5 mg/dL Low 1.8-2.6 [facility] Comment on above: Performed By: #### 1 9123-9 ####[facility] ([id number])[address] [place] [address] MAGNESIUMon 03-31-2024 Magnesium [Mass/Vol] 1.7 mg/dL Low 1.8-2.6 [facility] Comment on above: Performed By: #### 1 9123-9 ####[facility] ([id number])[address] [place] [address] MAGNESIUMon 03-24-2024 Magnesium [Mass/Vol] 1.6 mg/dL Low 1.8-2.6 [facility] Comment on above: Performed By: #### 1 9123-9 ####[facility] ([id number])[address] [place] [address] MAGNESIUMon 03-17-2024 Magnesium [Mass/Vol] 1.6 mg/dL Low 1.8-2.6 [facility] Comment on above: Performed By: #### 1 9123-9 ####[facility] ([id number])[address] [place] [address] MAGNESIUMon 03-10-2024 Magnesium [Mass/Vol] 1.6 mg/dL Low 1.8-2.6 [facility] Comment on above: Performed By: #### 1 9123-9 ####[facility] ([id number])[address] [place] [address] MAGNESIUMon 03-03-2024 Magnesium [Mass/Vol] 1.8 mg/dL Normal 1.8-2.6 [facility] Comment on above: Performed By: #### 1 9123-9 ####[facility] ([id number])[address] [place] [address] MAGNESIUMon 02-25-2024 Magnesium [Mass/Vol] 1.9 mg/dL Normal 1.8-2.6 [facility] Comment on above: Performed By: #### 1 9123-9 ####[facility] ([id number])[address] [place] [address] MAGNESIUMon 02-18-2024 Magnesium [Mass/Vol] 1.9 mg/dL Normal 1.8-2.6 [facility] Comment on above: Performed By: #### 1 9123-9 ####[facility] ([id number])[address] [place] [address] MAGNESIUMon 02-11-2024 Magnesium [Mass/Vol] 2.0 mg/dL Normal 1.8-2.6 [facility] Comment on above: Performed By: #### 1 9123-9 ####[facility] ([id number])[address] [place] [address] MAGNESIUMon 02-04-2024 Magnesium [Mass/Vol] 1.8 mg/dL Normal 1.8-2.6 [facility] Comment on above: Performed By: #### 1 9123-9 ####[facility] ([id number])[address] [place] [address], [place] [address] MAGNESIUMon 01-28-2024 Magnesium [Mass/Vol] 1.8 mg/dL Normal 1.8-2.6 [facility] Comment on above: Performed By: #### 1 9123-9 ####[facility] ([id number])[address] [place] [address] MAGNESIUMon 01-21-2024 Magnesium [Mass/Vol] 1.7 mg/dL Low 1.8-2.6 [facility] Comment on above: Performed By: #### 2 823-3, 08933-5 ####[facility] ([id number])[address] [place] [address] POTASSIUMon 01-21-2024 Potassium [Moles/Vol] 3.6 mmol/L Normal 3.5-5.0 [facility] Comment on above: Performed By: #### 2 823-3, 58041-7 ####[facility] ([id number])[address] [place] [address], [place] [address] MAGNESIUMon 01-14-2024 Magnesium [Mass/Vol] 1.6 mg/dL Low 1.8-2.6 [facility] Comment on above: Performed By: #### 1 9123-9 ####[facility] ([id number])[address] [place] [address] [place] [address] MAGNESIUMon 01-07-2024 Magnesium [Mass/Vol] 1.7 mg/dL Low 1.8-2.6 [facility] Comment on above: Performed By: #### 1 9123-9 ####[facility] ([id number])[address] [place] [address] MAGNESIUMon 12-31-2023 Magnesium [Mass/Vol] 1.7 mg/dL Low 1.8-2.6 [facility] Comment on above: Performed By: #### 1 9123-9 ####[facility] ([id number])[address] [place] [address] MAGNESIUMon 12-24-2023 Magnesium [Mass/Vol] 1.6 mg/dL Low 1.8-2.6 [facility] Comment on above: Performed By: #### 1 9123-9 ####[facility] ([id number])[address] [place] [address] MAGNESIUMon 12-17-2023 Magnesium [Mass/Vol] 1.5 mg/dL Low 1.8-2.6 [facility] Comment on above: Performed By: #### 1 9123-9 ####[facility] ([id number])[address] [place] [address] MAGNESIUMon 12-10-2023 Magnesium [Mass/Vol] 1.7 mg/dL Low 1.8-2.6 [facility] Comment on above: Performed By: #### 1 9123-9 ####[facility] ([id number])[address] [place] [address] MAGNESIUMon 12-03-2023 Magnesium [Mass/Vol] 1.7 mg/dL Low 1.8-2.6 [facility] Comment on above: Performed By: #### 1 9123-9 ####[facility] ([id number])[address] [place] [address] COMPREHENSIVE METABOLIC PANE Jared 11-26-2023 Albumin [Mass/Vol] 3.9 g/dL Normal 3.2-5.3 [facility] Comment on above: Performed By: #### 1 9123-9 ####[facility] ([id number])[address] [place] [address]#### [facility], 72690-7 ####[facility] ([id number])[address], [place] [address] ALP [Catalytic activity/Vol] 122 U/L Normal 39-130 [facility] Comment on above: Performed By: #### 1 9123-9 ####[facility] ([id number])[address] [place] [address]270#### JAS, 67070-9 ####[facility] ([id number])[address], [address], [place] [address] ALT [Catalytic activity/Vol] 29 U/L Normal 0-31 [facility] Comment on above: Performed By: #### 1 9123-9 ####[facility] ([id number])[address] [place] [address]84#### JAS, 29863-3 ####[facility] ([id number])[address], [place] [address] Anion gap [Moles/Vol] 9 mmol/L Normal 5-15 [facility] Comment on above: Performed By: #### 1 9123-9 ####[facility] ([id number])[address] [place] [address] 51699#### JAS, 81287-0 ####[facility] ([id number])[address], [address], [place] [address] AST [Catalytic activity/Vol] 22 U/L Normal 0-41 [facility] Comment on above: Performed By: #### 1 9123-9 ####[facility] ([id number])[address] [place] [address] 78736#### JAS, 51383-7 ####[facility] ([id number])[address], [address], [place] [address] Bilirubin [Mass/Vol] 0.4 mg/dL Normal 0.3-1.2 [facility] Comment on above: Performed By: #### 1 9123-9 ####[facility] ([id number])[address] [place] [address] 22900#### JAS, 11078-0 ####[facility] ([id number])[address] [address] Calcium [Mass/Vol] 9.7 mg/dL Normal 8.5-10.5 [facility] Comment on above: Performed By: #### 1 9123-9 ####[facility] ([id number])[address] [place] [address] 15803#### JAS, 58135-9 ####[facility] ([id number])[address], [address] [address] Chloride [Moles/Vol] 103 mmol/L Normal 98-109 [facility] Comment on above: Performed By: #### 1 9123-9 ####[facility] ([id number])[address] [place] [address] 62218#### JAS, 06601-9 ####[facility] ([id number])[address] [place] [address] CO2 [Moles/Vol] 30 mmol/L Normal 22-32 [facility] Comment on above: Performed By: #### 1 9123-9 ####[facility] ([id number])[address] [place] [address] 25060#### CMP, 17603-5 ####[facility] ([id number])[address], [place] [address] Creatinine [Mass/Vol] 1.53 mg/dL High 0.40-1.00 [facility] Comment on above: Result Comment: METH OD TRACEABLE TO IDMS STANDARD Performed By: #### 1 9123-9 ####[facility] ([id number])[address] [place] [address] 52000#### JAS, 61853-8 ####[facility] ([id number])[address], [address], [place] [address] GFR/1.73 sq M.predicted among non-blacks MDRD (S/P/Bld) [Vol rate/Area] 34 mL/min/{1.73_m2} Low >59 [facility] Comment on above: Result Comment: Repo rted eGFR is based on theCKD-EPI 2020 equation that doesnot use a race coefficient. Performed By: #### 1 9123-9 ####[facility] ([id number])[address] [place] [address] 65014#### AJS, 48176-6 ####[facility] ([id number])[address] [address] [place] [address] Glucose [Mass/Vol] 165 mg/dL High 65-99 [facility] Comment on above: Performed By: #### 1 9123-9 ####[facility] ([id number])[address] [place] [address] 59265#### JAS, 83366-1 ####[facility] ([id number])[address], [address], [place] [address] Potassium [Moles/Vol] 4.4 mmol/L Normal 3.5-5.0 [facility] Comment on above: Performed By: #### 1 9123-9 ####[facility] ([id number])[address] [place] [address] 75518#### JAS, 30630-5 ####[facility] ([id number])[address], [address] [place] [address] Protein [Mass/Vol] 7.1 g/dL Normal 6.0-8.0 [facility] Comment on above: Performed By: #### 1 9123-9 ####[facility] ([id number])[address] [place] [address] 10609#### CMP, 83370-4 ####[facility] ([id number])[address] [address] Sodium [Moles/Vol] 142 mmol/L Normal 134-146 [facility] Comment on above: Performed By: #### 1 9123-9 ####[facility] ([id number])[address] [place] [address] 60046#### JAS, 80340-8 ####[facility] ([id number])[address], [address], [place] [address] Urea nitrogen [Mass/Vol] 43 mg/dL High 5-27 [facility] Comment on above: Performed By: #### 1 9123-9 ####[facility] ([id number])[address] [place] [address] 04940#### CMP, 93073-4 ####[facility] ([id number])[address], [address] [address] HGB A1C (GLYCO-HGB)on 2023 Glucose [Mass/Vol] 163 mg/dL Normal [facility] Comment on above: Performed By: #### 1 9123-9 ####[facility] ([id number])[address] [place] [address] 32562#### CMP, 08754-5 ####[facility] ([id number])[address], [place] [address] HbA1c (Bld) [Mass fraction] 7.3 % High 4.4-5.6 [facility] Comment on above: Result Comment: NOTE ADA Guidelines Result HgbA1c Normal : less than 5.7 % Prediabetes : 5.7 % to 6.4 % Diabetes : > 6.4 %Use with caution in patients with abnormal hemoglobin variants asthe half-life of red blood cells and in vivo glycation rates areaffected. Performed By: #### 1 9123-9 ####[facility] ([id number])[address] [place] [address] 68993#### JAS, 97625-8 ####[facility] ([id number])[address] [place] [address], [address] [address] Lipid 1996 panelon 4 Cholesterol [Mass/Vol] 145 mg/dL Low 150-200 [facility] Comment on above: Performed By: #### 1 9123-9 ####[facility] ([id number])[address] [place] [address] 04182#### JAS, 77586-9 ####[facility] ([id number])[address] [place] [address], [place] [address] Cholesterol in HDL [Mass/Vol] 53 mg/dL Normal >39 [facility] Comment on above: Result Comment: HDL <40 mg/dL - High RiskHDL > or = 40mg/dL- DesirableHDL >60 mg/dL - Negative Risk Performed By: #### 1 9123-9 ####[facility] ([id number])[address] [place] [address] 30180#### JAS, 67418-1 ####[facility] ([id number])[address] [place] [address], [address] [address] Cholesterol in LDL [Mass/Vol] 43 mg/dL Normal <130 [facility] Comment on above: Result Comment: LDL <100 mg/dL - DesirableLDL >160 mg/dL - High Risk Performed By: #### 1 9123-9 ####[facility] ([id number])[address] [place] [address] 04369#### CMP, 42701-3 ####[facility] ([id number])[address] [address] Cholesterol in VLDL [Mass/Vol] 49 mg/dL High 0-30 [facility] Comment on above: Performed By: #### 1 9123-9 ####[facility] ([id number])[address] [place] [address] 86588#### CMP, 77957-4 ####[facility] ([id number])[address] [address] CHOLESTEROL:HDL 2.7 Normal 1.0-5.0 [facility] Comment on above: Performed By: #### 1 9123-9 ####[facility] ([id number])[address] [place] [address] 92159#### CMP, 82892-3 ####[facility] ([id number])[address] [address] [place] [address] Triglyceride [Mass/Vol] 245 mg/dL High 27-150 [facility] Comment on above: Performed By: #### 1 9123-9 ####[facility] ([id number])[address] [place] [address] 92268#### CMP, 27266-9 ####[facility] ([id number])[address] [place] [address], [address] [place] [address] MAGNESIUMon 11-26-2023 Magnesium [Mass/Vol] 1.8 mg/dL Normal 1.8-2.6 [facility] Comment on above: Performed By: #### 1 9123-9 ####[facility] ([id number])[address] [place] [address]#### [facility], 04229-6 ####[facility] ([id number])[address] [place] [address], [address] [place] [address] MICROALBUMIN - ALBUMIN:CREAT ININE URINE RATIOon 11-26-2023 ALB/CREAT RATIO 352.8 mg/g creat High 0.0-30.0 [facility] Comment on above: Performed By: #### M ALBU #### [facility] ([id number]) [address] [place] [address], [address] [place] [address] Albumin DL <= 20 mg/L (U) [Mass/Vol] 14.6 mg/dL High 0.0-1.9 [facility] Comment on above: Performed By: #### M ALBU #### [facility] ([id number]) [address] [place] [address], [address] [place] [address] URINE CREAT 41.38 mg/dL Normal [facility] Comment on above: Performed By: #### M ALBU #### [facility] ([id number]) [address] [place] [address], [address] [address] Office Visiton 11-19-2023 Follow-up visit [id number] Adore Dugan 1940 F Date Provider Department Center 11/19/2023 [facility] Family History Problem Relation Age of Onset Heart attack Mother Family Status - Relation Status Age at Mother Level of Service:33590 PA OFFICE/OUTPATIENT ESTABLISHED LOW MDM 20 MIN Normal [facility] Magnesiumon 11-16-2023 Magnesium [Mass/Vol] 1.4 mg/dL Low 1.9-2.7 [facility] Comment on above: Result Comment: PERF ORMED BY: [place] [address] PATHOLOGIST ACETYLENE CUTTER STONEY LINO M.D. Performed By: #### M G #### [facility] [address] Magnesium [Mass/volume] in S asiya or PlasmaOrdered By: Gia Munoz on 11-16-2023 Magnesium [Mass/Vol] 1.4 mg/dL 1.9-2.7 [facility] Multiple labsOrdered By: Mary Ann Carter on 11-16-2023 [facility] PTH INTACTon 01-16-2023 PTH, Intact 115 pg/mL Critically high 15-65 [facility] Comment on above: Performed By: #### M G, URIC, RENAL #### [facility] [address] [address] [address] Nacho Jeffery FERRITINon 01-15-2023 Ferritin [Mass/Vol] 304.0 ng/mL Critically high 8.0-252.0 [facility] Comment on above: Performed By: #### M Jamarcus, URIC, RENAL #### [facility] [address] [address] [address] Nacho Jeffery HEMOGRAM AND PLATELon 2022 Hematocrit (Bld) [Volume fraction] 36.0 % Normal 36.0-48.0 [facility] Comment on above: Performed By: #### M G, URIC, RENAL #### [facility] [address] [address] [address] Nacho Jeffery Hemoglobin (Bld) [Mass/Vol] 11.6 g/dL Critically low 12.0-16.0 [facility] Comment on above: Performed By: #### M G, URIC, RENAL #### [facility] [address] [address] [address] Nacho Jeffery MCH (RBC) [Entitic mass] 29.4 pg Normal 26.7-34.0 [facility] Comment on above: Performed By: #### M G, URIC, RENAL #### [facility] [address] [address] [address] Nacho Jeffery MCHC (RBC) [Mass/Vol] 32.2 g/dL Normal 29.9-35.2 [facility] Comment on above: Performed By: #### M G, URIC, RENAL #### [facility] [address] [place] [address] Dr. Nacho Jeffery MCV (RBC) [Entitic vol] 91.4 fL Normal 81.0-99.0 [facility] Comment on above: Performed By: #### M G, URIC, RENAL #### [facility] [address] [place] [address] Dr. Nacho Jeffery PLT 202 103/ul Normal 150-450 [facility] Comment on above: Performed By: #### M G, URIC, RENAL #### [facility] [address] [place] [address] Dr. Nacho Jeffery RBC 3.94 106/ul Critically low 4.20-5.40 [facility] Comment on above: Performed By: #### M G, URIC, RENAL #### [facility] [address] [place] [address] Dr. Nacho Jeffery WBC 5.9 103/ul Normal 4.0-11.0 [facility] Comment on above: Performed By: #### M G, URIC, RENAL #### [facility] [address] [place] [address] Dr. Nacho Jeffery IRON AND TIBCon 01-15-2023 % SATURATION 23.4 % Normal [facility] Comment on above: Performed By: #### M G, URIC, RENAL #### [facility] [address] [place] [address] Dr. Nacho Jeffery Iron [Mass/Vol] 62.0 ug/dL Normal 50.0-170.0 [facility] Comment on above: Performed By: #### M G, URIC, RENAL #### [facility] [address] [place] [address] Dr. Nacho Jeffery TIBC DIRECT 265.0 ug/dL Normal 250.0-450.0 [facility] Comment on above: Performed By: #### M G, URIC, RENAL #### [facility] [address] [address] [address] Nacho Jeffery MAGNESIUMon 01-15-2023 Magnesium [Mass/Vol] 1.5 mg/dL Critically low 1.8-2.4 [facility] Comment on above: Performed By: #### M G, URIC, RENAL #### [facility] [address] [address] [address] Nacho Jeffery RENAL FUNCTION PANELon 01-15 Albumin [Mass/Vol] 3.4 g/dL Normal 3.4-5.0 [facility] [facility] Comment on above: Performed By: #### M G, URIC, RENAL #### [facility] [address] [address] [address] Nacho Jeffery Calcium [Mass/Vol] 9.2 mg/dL Normal 8.5-10.1 [facility] Comment on above: Performed By: #### M G, URIC, RENAL #### [facility] [address] [address] [address] Nacho Jeffery Chloride [Moles/Vol] 104 mmol/L Normal 98-107 The [facility] Comment on above: Performed By: #### M G, URIC, RENAL #### [facility] [address] [address] [address] Nacho Jeffery CO2 [Moles/Vol] 30.8 mmol/L Normal 21.0-32.0 [facility] Comment on above: Performed By: #### M G, URIC, RENAL #### [facility] [address] [address] [address] Nacho Jeffery Creatinine [Mass/Vol] 1.52 mg/dL Critically high 0.55-1.02 [facility] Comment on above: Performed By: #### M G, URIC, RENAL #### [facility] [address] [address] [address] Nacho Jeffery EGFR-AF QATARI 40 mL/min/1.73m2 Critically low >=60 [facility] Comment on above: Performed By: #### M G, URIC, RENAL #### [facility] [address] [place] [address] Dr. Nacho Jeffery EGFR-NON AF QATARI 33 mL/min/1.73m2 Critically low >=60 [facility] Comment on above: Performed By: #### M G, URIC, RENAL #### [facility] [address] [place] [address] Dr. Nacho Jeffery Glucose [Mass/Vol] 172 mg/dL Critically high 74-106 [facility] Comment on above: Performed By: #### M G, URIC, RENAL #### [facility] [address] [place] [address] Dr. Nacho Jeffery Phosphate [Mass/Vol] 3.7 mg/dL Normal 2.6-4.7 [facility] Comment on above: Performed By: #### M G, URIC, RENAL #### [facility] [address] [place] [address] Dr. Nacho Jeffery Potassium [Moles/Vol] 4.2 mmol/L Normal 3.5-5.1 [facility] Comment on above: Performed By: #### M G, URIC, RENAL #### [facility] [address] [place] [address] Dr. Nacho Jeffery Sodium [Moles/Vol] 143 mmol/L Normal 136-145 [facility] Comment on above: Performed By: #### M G, URIC, RENAL #### [facility] [address] [place] [address] Dr. Nacho Jeffery Urea nitrogen [Mass/Vol] 56.0 mg/dL Critically high 7.0-18.0 [facility] Comment on above: Performed By: #### M G, URIC, RENAL #### [facility] [address] [place] [address] Dr. Nacho Jeffery UA RANDOM W/MICROSCOPICon BACTERIA NONE SEEN Normal NONE SEEN The [facility] Comment on above: Performed By: #### M G, URIC, RENAL #### [facility] [address] [address] [address] Nacho Jeffery Bilirubin Ql (U) Negative Normal NEGATIVE [facility] Comment on above: Performed By: #### M G, URIC, RENAL #### [facility] [address] [address] [address] Nacho Jeffery CAST NONE SEEN Normal NONE SEEN The [facility] Comment on above: Performed By: #### M G, URIC, RENAL #### [facility] [address] [address] [address] Nacho Jeffery Clarity (U) CLEAR Normal CLEAR The [facility] Comment on above: Performed By: #### M G, URIC, RENAL #### [facility] [address] [place] [address] Dr. Nacho Jeffery Color (U) LT. YELLOW Normal YELLOW The [facility] Comment on above: Performed By: #### M G, URIC, RENAL #### [facility] [address] [place] [address] Dr. Nacho Jeffery Crystals LM Nom (Urine sed) NONE SEEN Normal NONE SEEN [facility] Comment on above: Performed By: #### M G, URIC, RENAL #### [facility] [address] [place] [address] Dr. Nacho Jeffery Epithelial cells LM Ql (Urine sed) RARE Normal NONE SEEN /RARE The [facility] Comment on above: Performed By: #### M G, URIC, RENAL #### [facility] [address] [place] [address] Dr. Nacho Jeffery Glucose Ql (U) Negative Normal NEGATIVE The [facility] Comment on above: Performed By: #### M G, URIC, RENAL #### [facility] [address] [place] [address] Dr. Nacho Jeffery Hemoglobin Ql (U) Negative Normal NEGATIVE The [facility] Comment on above: Performed By: #### M G, URIC, RENAL #### [facility] [address] [place] [address] Dr. Nacho Jeffery Ketones Ql (U) Negative Normal NEGATIVE The [facility] Comment on above: Performed By: #### M G, URIC, RENAL #### [facility] [address] [address] [address] Nacho Jeffery LEUKOCYTES TRACE Abnormal NEGATIVE [facility] Comment on above: Performed By: #### M G, URIC, RENAL #### [facility] [address] [address] [address] Nacho Jeffery MUCOUS NONE SEEN Normal NONE SEEN The [facility] Comment on above: Performed By: #### M G, URIC, RENAL #### [facility] [address] [address] [address] Nacho Jeffery Nitrite Ql (U) Negative Normal NEGATIVE [facility] Comment on above: Performed By: #### M G, URIC, RENAL #### [facility] [address] [place] [address] Dr. Nacho Jeffery pH (U) 5.5 [pH] Normal 5-9 [facility] Comment on above: Performed By: #### M G, URIC, RENAL #### [facility] [address] [place] [address] Dr. Nacho Jeffery RBC 0-2 Normal 0-2 [facility] Comment on above: Performed By: #### M G, URIC, RENAL #### [facility] [address] [place] [address] Dr. Nacho Jeffery SPEC GRAVITY 1.015 Normal 1.005-<=1.025 [facility] Comment on above: Performed By: #### M G, URIC, RENAL #### [facility] [address] [place] [address] Dr. Nacho Jeffery UA PROTEIN Negative Normal NEGATIVE/ TRACE The [facility] Comment on above: Performed By: #### M G, URIC, RENAL #### [facility] [address] [place] [address] Dr. Nacho Jeffery Urobilinogen Qn (U) 0.2 {Zuleyka'U}/dL Normal 0.2 - 1. 0 [facility] Comment on above: Performed By: #### M G, URIC, RENAL #### [facility] [address] [place] [address] Dr. Nacho Jeffery WBC 2-5 Abnormal NONE SEEN The [facility] Comment on above: Performed By: #### M G, URIC, RENAL #### [facility] [address] [place] [address] Dr. Nacho Jeffery URIC ACID SERUMon 01-15-2023 Urate [Mass/Vol] 7.0 mg/dL Critically high 2.6-6.0 [facility] Comment on above: Performed By: #### M G, URIC, RENAL #### [facility] [address] [place] [address] Dr. Nacho Jeffery URINE T PROTEIN CREAT RATIOo n 01-15-2023 Protein (U) [Mass/Vol] 13.4 mg/dL Critically high <=12.0 [facility] Comment on above: Performed By: #### U RTPCR #### [facility] [address] [place] [address] Dr. Nacho Jeffery UR PROT CREAT RAT 0.24 Normal [facility] Comment on above: Performed By: #### U RTPCR #### [facility] [address] [place] [address] Dr. Nacho Jeffery URINE CREAT 56.90 mg/dL Normal 20.00-300.00 [facility] Comment on above: Performed By: #### U RTPCR #### [facility] [address] [place] [address] Dr. Nacho Jeffery VITAMIN D 25 OHon 01-15-2023 VIT D 25-OH 52.6 ng/mL Normal [facility] Comment on above: Performed By: #### M G, URIC, RENAL #### [facility] [address] [place] [address] Dr. Nacho Jeffery VIT D RANGES SEE BELOW Normal [facility] Comment on above: Result Comment: <20 ng/mL Vit D deficient 20 - <30 ng/mL Vit D insufficient 30 - 100 ng/mL Vit D sufficient >100 ng/mL Potential Toxicity Performed By: #### M G, URIC, RENAL #### [facility] [address] [place] [address] Dr. Nacho Jeffery Telemedicineon 12-06-2022 Telemedicine [id number] Adore Dugan 1940 F Date Provider Department Center 12/06/2022 Jesus-KERRI, EHAB CARD [facility] Family History Problem Relation Age of Onset Heart attack Mother Family Status - Relation Status Age at Mother Level of Service:89011 PA OFFICE/OUTPATIENT EST PT MAY NOT REQ PHYS/QHP Normal [facility] GLYCOHEMOGLOBIN A1Con 2021 ADA RECOMMENDATION SEE BELOW Normal [facility] Comment on above: Result Comment: ADA RECOMMENDED LIMIT 4.0 - 6.0 ADA THERAPEUTIC TARGET < 7.0 ACTION SUGGESTED > 7.0 Performed By: #### A 1C #### [facility] [address] [place] [address] Dr. [place] Jeffery Glucose [Mass/Vol] 143 mg/dL Normal [facility] Comment on above: Performed By: #### A 1C #### [facility] [address] [place] [address] Dr. Nacho Jeffery HbA1c (Bld) [Mass fraction] 6.6 % Critically high 4.5-6.2 [facility] Comment on above: Performed By: #### A 1C #### [facility] [address] [place] [address] Dr. Nacho Jeffery LIPID PROFILEon 11-09-2022 CHOL-HDL RATIO NORM SEE BELOW Normal [facility] Comment on above: Result Comment: 3.3 - 4.4 LOW RISK 4.4 - 7.1 AVERAGE RISK 7.1 - 11.0 MODERATE RISK >11.0 HIGH RISK Performed By: #### M G, URIC, RENAL #### [facility] [address] [address] [address] Nacho Jeffery Cholesterol [Mass/Vol] 141 mg/dL Normal <=200 [facility] Comment on above: Performed By: #### M G, URIC, RENAL #### [facility] [address] [address] [address] Nacho Jeffery Cholesterol in HDL [Mass/Vol] 59 mg/dL Normal 40-60 [facility] Comment on above: Performed By: #### M G, URIC, RENAL #### [facility] [address] [address] [address] Nacho Jeffery Cholesterol in LDL [Mass/Vol] 46.2 mg/dL Normal [facility] Comment on above: Performed By: #### M G, URIC, RENAL #### [facility] [address] [address] [address] Nacho Jeffery Cholesterol.total/C holesterol in HDL [Mass ratio] 2.4 {ratio} Normal [facility] Comment on above: Performed By: #### M G, URIC, RENAL #### [facility] [address] [address] [address] Nacho Jeffery HDL NORMAL > or = 60 mg/dl - LO W CARDIOVASCULAR RISK <40 mg/dl - HIGH CARDIOVASCULAR RISK Normal [facility] Comment on above: Performed By: #### M G, URIC, RENAL #### [facility] [address] [place] [address] Dr. Nacho Jeffery LDL CALC NORMAL SEE BELOW Normal [facility] Comment on above: Result Comment: <100 mg/dl OPTIMAL 100 - 129 mg/dl NEAR OR ABOVE OPTIMAL 130 - 159 mg/dl BORDERLINE HIGH 160 - 189 mg/dl HIGH >190 mg/dl VERY HIGH Performed By: #### M G, URIC, RENAL #### [facility] [address] [place] [address] Dr. Nacho Jeffery Triglyceride [Mass/Vol] 179 mg/dL Critically high <=150 [facility] Comment on above: Performed By: #### M G, URIC, RENAL #### [facility] [address] [place] [address] Dr. Nacho Jeffery VLDL CALC 35.8 mg/dL Normal [facility] Comment on above: Performed By: #### M G, URIC, RENAL #### [facility] [address] [address] [address] Nacho Jeffery PROF 14(COMP METB)on 022 Albumin [Mass/Vol] 3.2 g/dL Critically low 3.4-5.0 Th e [facility] Comment on above: Performed By: #### M G, URIC, RENAL #### [facility] [address] [place] [address] Dr. Nacho Jeffery Albumin/Globulin [Mass ratio] 0.8 {ratio} Normal [facility] Comment on above: Performed By: #### M G, URIC, RENAL #### [facility] [address] [address] [address] Nacho Jeffery ALP [Catalytic activity/Vol] 109 U/L Normal 46-116 [facility] Comment on above: Performed By: #### M G, URIC, RENAL #### [facility] [address] [address] [address] Nacho Jeffery ALT [Catalytic activity/Vol] 38 U/L Normal 14-59 [facility] Comment on above: Performed By: #### M G, URIC, RENAL #### [facility] [address] [place] [address] Dr. Nacho Jeffery Anion gap [Moles/Vol] 13.7 mmol/L Normal [facility] Comment on above: Performed By: #### M G, URIC, RENAL #### [facility] [address] [address] [address] Nacho Jeffery AST [Catalytic activity/Vol] 27 U/L Normal 15-37 [facility] Comment on above: Performed By: #### M G, URIC, RENAL #### [facility] [address] [place] [address] Dr. Nacho Jeffery Bilirubin [Mass/Vol] 0.4 mg/dL Normal 0.2-1.0 [facility] Comment on above: Performed By: #### M G, URIC, RENAL #### [facility] [address] [address] [address] Nacho Jeffery Calcium [Mass/Vol] 9.2 mg/dL Normal 8.5-10.1 [facility] Comment on above: Performed By: #### M G, URIC, RENAL #### [facility] [address] [address] [address] Nacho Jeffery Chloride [Moles/Vol] 105 mmol/L Normal 98-107 [facility] Comment on above: Performed By: #### M G, URIC, RENAL #### [facility] [address] [address] [address] Nacho Jeffery CO2 [Moles/Vol] 29.5 mmol/L Normal 21.0-32.0 [facility] Comment on above: Performed By: #### M G, URIC, RENAL #### [facility] [address] [address] [address] Nacho Jeffery Creatinine [Mass/Vol] 1.62 mg/dL Critically high 0.55-1.02 The [facility] Comment on above: Performed By: #### M G, URIC, RENAL #### [facility] [address] [address] [address] Nacho Jeffery EGFR-AF QATARI 37 mL/min/1.73m2 Critically low >=60 [facility] Comment on above: Performed By: #### M Jamarcus, URIC, RENAL #### [facility] [address] [address] [address] Nacho Jeffery EGFR-NON AF QATARI 31 mL/min/1.73m2 Critically low >=60 The [facility] Comment on above: Performed By: #### M G, URIC, RENAL #### [facility] [address] [address] [address] Nacho Jeffery Globulin (S) [Mass/Vol] 3.8 g/dL Normal [facility] Comment on above: Performed By: #### M G, URIC, RENAL #### [facility] [address] [address] [address] Nacho Jeffery Glucose [Mass/Vol] 102 mg/dL Normal 74-106 [facility] Comment on above: Performed By: #### M G, URIC, RENAL #### [facility] [address] [address] [address] Nacho Jeffery Potassium [Moles/Vol] 4.2 mmol/L Normal 3.5-5.1 The [facility] Comment on above: Performed By: #### M G, URIC, RENAL #### [facility] [address] [address] [address] Nacho Jeffery Protein [Mass/Vol] 7.0 g/dL Normal 6.4-8.2 [facility] Comment on above: Performed By: #### M G, URIC, RENAL #### [facility] [address] [address] [address] Nacho Jeffery Sodium [Moles/Vol] 144 mmol/L Normal 136-145 [facility] Comment on above: Performed By: #### M G, URIC, RENAL #### [facility] [address] [address] [address] Nacho Jeffery Urea nitrogen [Mass/Vol] 45.0 mg/dL Critically high 7.0-18.0 [facility] Comment on above: Performed By: #### M G, URIC, RENAL #### [facility] [address] [address] [address] Nacho Jeffery Urea nitrogen/Creatinine [Mass ratio] 27.8 mg/mg Normal [facility] Comment on above: Performed By: #### M G, URIC, RENAL #### [facility] [address] [place] [address] Dr. Nacho Jeffery OSMOLALITY URINEon 2 Osmolality, Urine 466 mOsmol/kg Normal [facility] Comment on above: Result Comment: 24 h r : 300 - 900 Random: 50 - 1400 After 12hr fluid restriction: >850 Performed By: #### M G, URIC, RENAL #### [facility] [address] [place] [address] Dr. Nacho Jeffery PTH INTACTon 07-13-2022 PTH, Intact 84 pg/mL Critically high 15-65 [facility] Comment on above: Performed By: #### P THINT #### [facility] [address] [place] [address] Dr. Nacho Jeffery VIT D 25-OH LABCORPon 2021 Vitamin D, 25-Hydroxy 34.7 ng/mL Normal 30.0-100.0 [facility] Comment on above: Result Comment: Radha min D deficiency has been defined by the [place] [employer] and an Endocrine Society practice guideline as a level of serum 25-OH vitamin D less than 20 ng/mL (1,2). The Endocrine Society went on to further define vitamin D insufficiency as a level between 21 and 29 ng/mL (2). 1. IOM ([place] [employer]). 2010. Dietary reference intakes for calcium and D. [place]: The National Academies Press. 2. Magdiel MF, Kb NC, Evens PEPPER, et al. Evaluation, treatment, and prevention of vitamin D deficiency: an Endocrine Society clinical practice guideline. JCEM. 2010; 96(7):1911-30. Performed By: #### M G, URIC, RENAL #### [facility] [address] [place] [address] Dr. Nacho Jeffery HEMOGRAM AND PLATELon 2021 Hematocrit (Bld) [Volume fraction] 35.5 % Critically low 36.0-48.0 [facility] Comment on above: Performed By: #### M Jamarcus, URIC, RENAL #### [facility] [address] [place] [address] Dr. Nacho Jeffery Hemoglobin (Bld) [Mass/Vol] 11.5 g/dL Critically low 12.0-16.0 The [facility] Comment on above: Performed By: #### M G, URIC, RENAL #### [facility] [address] [place] [address] Dr. Nacho Jeffery MCH (RBC) [Entitic mass] 30.6 pg Normal 26.7-34.0 [facility] Comment on above: Performed By: #### M G, URIC, RENAL #### [facility] [address] [place] [address] Dr. Nacho Jeffery MCHC (RBC) [Mass/Vol] 32.4 g/dL Normal 29.9-35.2 The [facility] Comment on above: Performed By: #### M G, URIC, RENAL #### [facility] [address] [place] [address] Dr. Nacho Jeffery MCV (RBC) [Entitic vol] 94.4 fL Normal 81.0-99.0 The [facility] Comment on above: Performed By: #### M G, URIC, RENAL #### [facility] [address] [place] [address] Dr. Nacho Jeffery PLT 192 103/ul Normal 150-450 The [facility] Comment on above: Performed By: #### M G, URIC, RENAL #### [facility] [address] [address] [address] Nacho Jeffery RBC 3.76 106/ul Critically low 4.20-5.40 [facility] Comment on above: Performed By: #### M G, URIC, RENAL #### [facility] [address] [address] [address] Nacho Jeffery WBC 6.1 103/ul Normal 4.0-11.0 [facility] Comment on above: Performed By: #### M G, URIC, RENAL #### [facility] [address] [address] [address] Nacho Jeffery MAGNESIUMon 07-12-2022 Magnesium [Mass/Vol] 1.3 mg/dL Critically low 1.8-2.4 [facility] Comment on above: Performed By: #### U CHRISTOFER, MG, RENAL #### [facility] [address] [address] [address] Nacho Jeffery RENAL FUNCTION PANELon 07-12 Albumin [Mass/Vol] 3.3 g/dL Critically low 3.4-5.0 [facility] Comment on above: Performed By: #### U CHRISTOFER, MG, RENAL #### [facility] [address] [place] [address] Dr. Nacho Jeffery Calcium [Mass/Vol] 9.1 mg/dL Normal 8.5-10.1 [facility] Comment on above: Performed By: #### U CHRISTOFER, MG, RENAL #### [facility] [address] [place] [address] Dr. Nacho Jeffery Chloride [Moles/Vol] 104 mmol/L Normal 98-107 [facility] Comment on above: Performed By: #### U CHRISTOFER, MG, RENAL #### [facility] [address] [place] [address] Dr. Nacho Jeffery CO2 [Moles/Vol] 31.7 mmol/L Normal 21.0-32.0 [facility] Comment on above: Performed By: #### U CHRISTOFER, MG, RENAL #### [facility] [address] [address] [address] Nacho Jeffery Creatinine [Mass/Vol] 1.52 mg/dL Critically high 0.55-1.02 [facility] Comment on above: Performed By: #### U CHRISTOFER, MG, RENAL #### [facility] [address] [place] [address] Dr. Nacho Jeffery EGFR-AF QATARI 40 mL/min/1.73m2 Critically low >=60 [facility] Comment on above: Performed By: #### U CHRISTOFER, MG, RENAL #### [facility] [address] [place] [address] Dr. Nacho Jeffery EGFR-NON AF QATARI 33 mL/min/1.73m2 Critically low >=60 [facility] Comment on above: Performed By: #### U CHRISTOFER, MG, RENAL #### [facility] [address] [place] [address] Dr. Nacho Jeffery Glucose [Mass/Vol] 221 mg/dL Critically high 74-106 [facility] Comment on above: Performed By: #### U CHRISTOFER, MG, RENAL #### [facility] [address] [place] [address] Dr. Nacho Jeffery Phosphate [Mass/Vol] 3.8 mg/dL Normal 2.6-4.7 [facility] Comment on above: Performed By: #### U CHRISTOFER, MG, RENAL #### [facility] [address] [place] [address] Dr. Nacho Jeffery Potassium [Moles/Vol] 4.1 mmol/L Normal 3.5-5.1 [facility] Comment on above: Performed By: #### U CHRISTOFER, MG, RENAL #### [facility] [address] [place] [address] Dr. Nacho Jeffery Sodium [Moles/Vol] 143 mmol/L Normal 136-145 [facility] Comment on above: Performed By: #### U CHRISTOFER, MG, RENAL #### [facility] [address] [place] [address] Dr. Nacho Jeffery Urea nitrogen [Mass/Vol] 45.0 mg/dL Critically high 7.0-18.0 [facility] Comment on above: Performed By: #### U CHRISTOFER, MG, RENAL #### [facility] [address] [address] [address] Nacho Jeffery UA RANDOM W/MICROSCOPICon BACTERIA NONE SEEN Normal NONE SEEN The [facility] Comment on above: Performed By: #### M G, URIC, RENAL #### [facility] [address] [address] [address] Nacho Jeffery Bilirubin Ql (U) Negative Normal NEGATIVE The [facility] Comment on above: Performed By: #### M G, URIC, RENAL #### [facility] [address] [place] [address] Dr. Nacho Jeffery CAST NONE SEEN Normal NONE SEEN [facility] Comment on above: Performed By: #### M G, URIC, RENAL #### [facility] [address] [place] [address] Dr. Nacho Jeffery Clarity (U) CLEAR Normal CLEAR The [facility] Comment on above: Performed By: #### M G, URIC, RENAL #### [facility] [address] [place] [address] Dr. Nacho Jeffery Color (U) LT. YELLOW Normal YELLOW The [facility] Comment on above: Performed By: #### M G, URIC, RENAL #### [facility] [address] [place] [address] Dr. Nacho Jeffery Crystals LM Nom (Urine sed) NONE SEEN Normal NONE SEEN The [facility] Comment on above: Performed By: #### M G, URIC, RENAL #### [facility] [address] [place] [address] Dr. Nacho Jeffery Epithelial cells LM Ql (Urine sed) FEW Abnormal NONE SEEN /RARE The [facility] Comment on above: Performed By: #### M G, URIC, RENAL #### [facility] [address] [place] [address] Dr. Nacho Jeffery Glucose Ql (U) Negative Normal NEGATIVE The [facility] Comment on above: Performed By: #### M G, URIC, RENAL #### [facility] [address] [place] [address] Dr. Nacho Jeffery Hemoglobin Ql (U) Negative Normal NEGATIVE The [facility] Comment on above: Performed By: #### M G, URIC, RENAL #### [facility] [address] [address] [address] Nacho Jeffery Ketones Ql (U) Negative Normal NEGATIVE The [facility] Comment on above: Performed By: #### M G, URIC, RENAL #### [facility] [address] [address] [address] Nacho Jeffery LEUKOCYTES TRACE Abnormal NEGATIVE [facility] Comment on above: Performed By: #### M G, URIC, RENAL #### [facility] [address] [address] [address] Nacho Jeffery MUCOUS NONE SEEN Normal NONE SEEN The [facility] Comment on above: Performed By: #### M G, URIC, RENAL #### [facility] [address] [place] [address] Dr. Nacho Jeffery Nitrite Ql (U) Negative Normal NEGATIVE The [facility] Comment on above: Performed By: #### M G, URIC, RENAL #### [facility] [address] [place] [address] Dr. Nacho Jeffery pH (U) 6.0 [pH] Normal 5-9 The [facility] Comment on above: Performed By: #### M G, URIC, RENAL #### [facility] [address] [place] [address] Dr. Nacho Jeffery RBC NONE SEEN Abnormal 0-2 The [facility] Comment on above: Performed By: #### M G, URIC, RENAL #### [facility] [address] [place] [address] Dr. Nacho Jeffery SPEC GRAVITY 1.015 Normal 1.005-<=1.025 The [facility] Comment on above: Performed By: #### M G, URIC, RENAL #### [facility] [address] [place] [address] Dr. Nacho Jeffery UA PROTEIN Negative Normal NEGATIVE/ TRACE The [facility] Comment on above: Performed By: #### M G, URIC, RENAL #### [facility] [address] [place] [address] Dr. Nacho Jeffery Urobilinogen Qn (U) 0.2 {Zuleyka'U}/dL Normal 0.2 - 1. 0 [facility] Comment on above: Performed By: #### M G, URIC, RENAL #### [facility] [address] [address] [address] Nacho Jeffery WBC 2-5 Abnormal NONE SEEN The [facility] Comment on above: Performed By: #### M G, URIC, RENAL #### [facility] [address] [address] [address] Nacho Jeffery URIC ACID SERUMon 07-12-2022 Urate [Mass/Vol] 7.9 mg/dL Critically high 2.6-6.0 [facility] Comment on above: Performed By: #### U CHRISTOFER, MG, RENAL #### [facility] [address] [address] [address] Nacho Jeffery URINE T PROTEIN CREAT RATIOo n 07-12-2022 Protein (U) [Mass/Vol] 17.5 mg/dL Critically high <=12.0 [facility] Comment on above: Performed By: #### M G, URIC, RENAL #### [facility] [address] [address] [address] Nacho Jeffery UR PROT CREAT RAT 0.29 Normal [facility] Comment on above: Performed By: #### M G, URIC, RENAL #### [facility] [address] [address] [address] Nacho Jeffery URINE CREAT 60.37 mg/dL Normal 20.00-300.00 [facility] Comment on above: Performed By: #### M G, URIC, RENAL #### [facility] [address] [address] [address] Nacho Jeffery ALBUMIN, RANDOM URINE W/CREA TININEon 05-11-2022 ALBUMIN, URINE 0.5 mg/dL Normal See Note: [facility] Comment on above: Result Comment: Refe rence Range: Reference Range Not established Performed By: #### 4 96, 7600, 6517, [id number] #### [facility] [address] [place] [address], [address] [place] [address] [employer] Physical Therapist: Mauricio Kern MD ALBUMIN/CREATININE RATIO, RANDOM URINE [...] Performed By: #### 4 96, 7600, 6517, 39420 #### [facility] [address], [address] [place] [address] [employer] Physical Therapist: Mauricio Kern MD Creatinine (U) [Mass/Vol] 74 mg/dL Normal 20-275 [facility] Comment on above: Performed By: #### 4 96, 7600, 6517, 36913 #### [facility] [address], [address] [place] [address] [employer] Physical Therapist: Mauricio Kern MD BASIC METABOLIC PANELon 04-14 GLUCOSE Normal [facility] Comment on above: Result Comment: TEST NOT PERFORMED No specimen received. Performed By: #### 4 96, 7600, 6517, 32501 #### [facility] [address], [address] [place] [address] [employer] Physical Therapist: Mauricio Kern MD HEMOGLOBIN A1con 05-11-2022 HEMOGLOBIN A1c Normal [facility] Comment on above: Result Comment: TEST NOT PERFORMED No specimen received. Performed By: #### 4 96, 7600, 6517, 13531 #### [facility] [address], [address] [place] [address] [employer] Physical Therapist: Mauricio Kern MD LIPID PANEL, STANDARDon 04-14 CHOL/HDLC RATIO Normal [facility] Comment on above: Result Comment: TEST NOT PERFORMED No specimen received. Performed By: #### 4 96, 7600, 6517, 03299 #### [facility] [address], [address] [place] [address] [employer] Physical Therapist: Mauricio Kern MD CHOLESTEROL, TOTAL Normal [facility] Comment on above: Result Comment: TEST NOT PERFORMED No specimen received. Performed By: #### 4 96, 7600, 6517, 97492 #### [facility] [address], [address] [place] [address] [employer] Therapist: Mauricio Kern MD HDL CHOLESTEROL Normal [facility] Comment on above: Result Comment: TEST NOT PERFORMED No specimen received. Performed By: #### 4 96, 7600, 6517, 31690 #### [facility] [address], [address] [place] [address] [employer] Physical Therapist: Mauricio Kern MD LDL-CHOLESTEROL Normal [facility] Comment on above: Result Comment: TEST NOT PERFORMED No specimen received. Performed By: #### 4 96, 7600, 6517, 40818 #### [facility] [address], [address] [place] [address] [employer] Physical Therapist: Mauricio Kern MD NON HDL CHOLESTEROL Normal [facility] Comment on above: Result Comment: TEST NOT PERFORMED No specimen received. Performed By: #### 4 96, 7600, 6517, 16195 #### [facility] [address] [place] [address] [employer] Physical Therapist: Mauricio Kern MD TRIGLYCERIDES Normal [facility] Comment on above: Result Comment: TEST NOT PERFORMED No specimen received. Performed By: #### 4 96, 7600, 6517, 14018 #### [facility] [address] [place] [address] [employer] Physical Therapist: Mauricio Kern MD BASIC METABOLIC PANELon 06-2 Calcium [Mass/Vol] 9.1 mg/dL Normal 8.6-10.4 [facility] Comment on above: Performed By: #### 1 0165, 496, 7600 #### [facility] [address] [place] [address] [employer] Physical Therapist: Mauricio Kern MD Chloride [Moles/Vol] 105 mmol/L Normal 98-110 [facility] Comment on above: Performed By: #### 1 0165, 496, 7600 #### [facility] [address], [address] [place] [address] [employer] Physical Therapist: Mauricio Kern MD CO2 [Moles/Vol] 25 mmol/L Normal 20-32 [facility] Comment on above: Performed By: #### 1 0165, 496, 7600 #### [facility] [address] [place] [address] [employer] Physical Therapist: Mauricio Kern MD Creatinine [Mass/Vol] 1.73 mg/dL High 0.60-0.93 [facility] Comment on above: Result Comment: For patients >49 years of age, the reference limit for Creatinine is approximately 13% higher for people identified as -[place]. Performed By: #### 1 0165, 496, 7600 #### [facility] [address], [address] [place] [address] [employer] Physical Therapist: Mauricio Kern MD eGFR NON-AFR. QATARI 28 mL/min/1.73m2 Low > OR = 60 [facility] Comment on above: Performed By: #### 1 0165, 496, 7600 #### [facility] [address] [place] [address] [employer] Physical Therapist: Mauricio Kern MD GFR/1.73 sq M.predicted among blacks MDRD (S/P/Bld) [Vol rate/Area] 32 mL/min/{1.73_m2} Low > OR = 60 [facility] Comment on above: Performed By: #### 1 0165, 496, 7600 #### [facility] [address], [address] [place] [address] [employer] Physical Therapist: Mauricio Kern MD Glucose [Mass/Vol] 137 mg/dL High 65-99 [facility] Comment on above: Result Comment: Fasting reference interval For someone without known diabetes, a glucose value >125 mg/dL indicates that they may have diabetes and this should be confirmed with a follow-up test. Performed By: #### 1 0165, 496, 7600 #### [facility] [address], [address] [place] [address] [employer] Physical Therapist: Mauricio Kern MD Potassium [Moles/Vol] 4.6 mmol/L Normal 3.5-5.3 [facility] Comment on above: Performed By: #### 1 0165, 496, 7600 #### [facility] [address], [address] [place] [address] [employer] Physical Therapist: Mauricio Kern MD Sodium [Moles/Vol] 142 mmol/L Normal 135-146 [facility] Comment on above: Performed By: #### 1 0165, 496, 7600 #### [facility] [address] [address] [employer] Physical Therapist: Mauricio Kern MD Urea nitrogen [Mass/Vol] 65 mg/dL High 7-25 [facility] Comment on above: Performed By: #### 1 0165, 496, 7600 #### [facility] [address] [address] [employer] Physical Therapist: Mauricio Kern MD Urea nitrogen/Creatinine [Mass ratio] 38 mg/mg High 6-22 [facility] Comment on above: Performed By: #### 1 0165, 496, 7600 #### [facility] [address] [address] [employer] Physical Therapist: Mauricio Kern MD HEMOGLOBIN A1con 05-04-2022 HEMOGLOBIN [...] 1 0165, 496, 7600 #### [facility] [address], [address] [place] [address] [employer] Physical Therapist: Mauricio Kern MD LIPID PANEL, [facility] 04-13 Cholesterol [Mass/Vol] 163 mg/dL Normal <200 [facility] Comment on above: Order Comment: FASTI NG:YES PATIENT UNABLE TO VOID; ADVISED TO RETURN FOR COLLECTION. FASTING: YES Performed By: #### 1 0165, 496, 8660 #### [facility] [address], [address] [place] [address] [employer] Physical Therapist: Mauricio Kern MD Cholesterol in HDL [Mass/Vol] 51 mg/dL Normal > OR = 50 [facility] Comment on above: Order Comment: FASTI NG:YES PATIENT UNABLE TO VOID; ADVISED TO RETURN FOR COLLECTION. FASTING: YES Performed By: #### 1 0165, 496, 3270 #### [facility] [address], [address] [place] [address] [employer] Physical Therapist: Mauricio Kern MD Cholesterol in LDL [Mass/Vol] [...] LDL-C. Sean BREAUX et al. SHRUTHI. 2013;310(19): 5416-4275 (http://education.Visualmarks.[employer]/faq/ABH467) Performed By: #### 1 0165, 496, 3440 #### [facility] [address], [address] [place] [address] [employer] Physical Therapist: Mauricio Kern MD Cholesterol.total/C holesterol in HDL [Mass ratio] 3.2 {ratio} Normal <5.0 [facility] Comment on above: Order Comment: FASTI NG:YES PATIENT UNABLE TO VOID; ADVISED TO RETURN FOR COLLECTION. FASTING: YES Performed By: #### 1 0165, 496, 7600 #### [facility] [address], [address] [place] [address] [employer] Physical Therapist: Mauricio Kern MD NON HDL CHOLESTEROL 112 [...] 1 0165, 496, 7600 #### [facility] [address], [address] [place] [address] [employer] Physical Therapist: Mauricio Kern MD Triglyceride [Mass/Vol] 181 mg/dL High <150 [facility] Comment on above: Order Comment: FASTI NG:YES PATIENT UNABLE TO VOID; ADVISED TO RETURN FOR COLLECTION. FASTING: YES Performed By: #### 1 0165, 496, 7600 #### [facility] [address], [address] [place] [address] [employer] Physical Therapist: Mauricio Kern MD PTH INTACTon 03-31-2022 PTH, Intact 111 pg/mL Critically high 15-65 [facility] Comment on above: Performed By: #### M G, URIC, RENAL #### [facility] [id number] Nacho Jeffery FERRITINon 03-30-2022 Ferritin [Mass/Vol] 479.0 ng/mL Critically high 8.0-252.0 The [facility] Comment on above: Performed By: #### M G, URIC, RENAL #### [facility] [address] [place], [place] [address] Dr. Nacho Jeffery HEMOGRAM AND PLATELon 2021 Hematocrit (Bld) [Volume fraction] 38.1 % Normal 36.0-48.0 The [facility] Comment on above: Performed By: #### M G, URIC, RENAL #### [facility] [address] [address] [address] Nacho Jeffery Hemoglobin (Bld) [Mass/Vol] 12.9 g/dL Normal 12.0-16.0 [facility] Comment on above: Performed By: #### M G, URIC, RENAL #### [facility] [address] [address] [address] Nacho Jeffery MCH (RBC) [Entitic mass] 32.8 pg Normal 26.7-34.0 The [facility] Comment on above: Performed By: #### M G, URIC, RENAL #### [facility] [address] [place] [address] Dr. Nacho Jeffery MCHC (RBC) [Mass/Vol] 33.9 g/dL Normal 29.9-35.2 The [facility] Comment on above: Performed By: #### M G, URIC, RENAL #### [facility] [address] [place] [address] Dr. Nacho Jeffery MCV (RBC) [Entitic vol] 96.9 fL Normal 81.0-99.0 [facility] Comment on above: Performed By: #### M G, URIC, RENAL #### [facility] [address] [place] [address] Dr. Nacho Jeffery PLT 191 103/ul Normal 150-450 [facility] Comment on above: Performed By: #### M G, URIC, RENAL #### [facility] [address] [address] [address] Nacho Jeffery RBC 3.93 106/ul Critically low 4.20-5.40 [facility] Comment on above: Performed By: #### M G, URIC, RENAL #### [facility] [address] [place] [address] Dr. Nacho Jeffery WBC 7.2 103/ul Normal 4.0-11.0 The [facility] Comment on above: Performed By: #### M G, URIC, RENAL #### [facility] [address] [place] [address] Dr. Nacho Jeffery IRON AND TIBCon 03-30-2022 % SATURATION 21.6 % Normal The [facility] Comment on above: Performed By: #### M G, URIC, RENAL #### [facility] [address] [address] [address] Nacho Jeffery Iron [Mass/Vol] 63.0 ug/dL Normal 50.0-170.0 [facility] Comment on above: Performed By: #### M G, URIC, RENAL #### [facility] [address] [address] [address] Nacho Jeffery TIBC DIRECT 292.0 ug/dL Normal 250.0-450.0 [facility] Comment on above: Performed By: #### M G, URIC, RENAL #### [facility] [address] [address] [address] Nacho Jeffery MAGNESIUMon 03-30-2022 Magnesium [Mass/Vol] 1.7 mg/dL Critically low 1.8-2.4 The [facility] Comment on above: Performed By: #### M G, URIC, RENAL #### [facility] [address] [address] [address] Nacho Jeffery RENAL FUNCTION PANELon 03-30 Albumin [Mass/Vol] 3.4 g/dL Normal 3.4-5.0 [facility] Comment on above: Performed By: #### M G, URIC, RENAL #### [facility] [address] [address] [address] Nacho Jeffery Calcium [Mass/Vol] 9.3 mg/dL Normal 8.5-10.1 [facility] Comment on above: Performed By: #### M G, URIC, RENAL #### [facility] [address] [address] [address] Nacho Jeffery Chloride [Moles/Vol] 102 mmol/L Normal 98-107 The [facility] Comment on above: Performed By: #### M G, URIC, RENAL #### [facility] [address] [address] [address] Nacho Jeffery CO2 [Moles/Vol] 31.7 mmol/L Normal 21.0-32.0 The [facility] Comment on above: Performed By: #### M G, URIC, RENAL #### [facility] [address] [address] [address] Nacho Jeffery Creatinine [Mass/Vol] 2.05 mg/dL Critically high 0.55-1.02 [facility] Comment on above: Performed By: #### M G, URIC, RENAL #### [facility] [address] [address] [address] Nacho Jeffery EGFR-AF QATARI 28 mL/min/1.73m2 Critically low >=60 [facility] Comment on above: Performed By: #### M G, URIC, RENAL #### [facility] [address] [place] [address] Dr. Nacho Jeffery EGFR-NON AF QATARI 23 mL/min/1.73m2 Critically low >=60 [facility] Comment on above: Performed By: #### M G, URIC, RENAL #### [facility] [address] [place] [address] Dr. Nacho Jeffery Glucose [Mass/Vol] 194 mg/dL Critically high 74-106 [facility] Comment on above: Performed By: #### M G, URIC, RENAL #### [facility] [address] [address] [address] Nacho Jeffery Phosphate [Mass/Vol] 3.2 mg/dL Normal 2.6-4.7 [facility] Comment on above: Performed By: #### M G, URIC, RENAL #### [facility] [address] [address] [address] Nacho Jeffery Potassium [Moles/Vol] 4.6 mmol/L Normal 3.5-5.1 [facility] Comment on above: Performed By: #### M G, URIC, RENAL #### [facility] [address] [address] [address] Nacho Jeffery Sodium [Moles/Vol] 141 mmol/L Normal 136-145 [facility] Comment on above: Performed By: #### M G, URIC, RENAL #### [facility] [address] [address] [address] Nacho Jeffery Urea nitrogen [Mass/Vol] 64.0 mg/dL Critically high 7.0-18.0 The [facility] Comment on above: Performed By: #### M G, URIC, RENAL #### [facility] [address] [place] [address] Dr. Nacho Jeffery UA RANDOM W/MICROSCOPICon BACTERIA NONE SEEN Normal NONE SEEN The [facility] Comment on above: Performed By: #### M G, URIC, RENAL #### [facility] [address] [place] [address] Dr. Nacho Jeffery Bilirubin Ql (U) Negative Normal NEGATIVE [facility] Comment on above: Performed By: #### M G, URIC, RENAL #### [facility] [address] [place] [address] Dr. Nacho Jeffery CAST NONE SEEN Normal NONE SEEN The [facility] Comment on above: Performed By: #### M G, URIC, RENAL #### [facility] [address] [place] [address] Dr. Nacho Jeffery Clarity (U) CLEAR Normal CLEAR The [facility] Comment on above: Performed By: #### M G, URIC, RENAL #### [facility] [address] [place] [address] Dr. Nacho Jeffery Color (U) LT. YELLOW Normal YELLOW The [facility] Comment on above: Performed By: #### M G, URIC, RENAL #### [facility] [address] [place] [address] Dr. Nacho Jeffery Crystals LM Nom (Urine sed) NONE SEEN Normal NONE SEEN The [facility] Comment on above: Performed By: #### M G, URIC, RENAL #### [facility] [address] [place] [address] Dr. Nacho Jeffery Epithelial cells LM Ql (Urine sed) FEW Abnormal NONE SEEN /RARE The [facility] Comment on above: Performed By: #### M G, URIC, RENAL #### [facility] [address] [place] [address] Dr. Nacho Jeffery Glucose Ql (U) Negative Normal NEGATIVE The [facility] Comment on above: Performed By: #### M G, URIC, RENAL #### [facility] [address] [address] [address] Nacho Jeffery Hemoglobin Ql (U) Negative Normal NEGATIVE [facility] Comment on above: Performed By: #### M G, URIC, RENAL #### [facility] [address] [address] [address] Nacho Jeffery Ketones Ql (U) Negative Normal NEGATIVE The [facility] Comment on above: Performed By: #### M G, URIC, RENAL #### [facility] [address] [address] [address] Nacho Jeffery LEUKOCYTES SMALL Abnormal NEGATIVE [facility] Comment on above: Performed By: #### M G, URIC, RENAL #### [facility] [address] [address] [address] Nacho Jeffery MUCOUS NONE SEEN Normal NONE SEEN [facility] [facility] Comment on above: Performed By: #### M G, URIC, RENAL #### [facility] [address] [address] [address] Nacho Jeffery Nitrite Ql (U) Negative Normal NEGATIVE [facility] Comment on above: Performed By: #### M G, URIC, RENAL #### [facility] [address] [address] [address] Nacho Jeffery pH (U) 5.5 [pH] Normal 5-9 [facility] Comment on above: Performed By: #### M G, URIC, RENAL #### [facility] [address] [address] [address] Nacho Jeffery RBC 0-2 Normal 0-2 [facility] Comment on above: Performed By: #### M G, URIC, RENAL #### [facility] [address] [address] [address] Nacho Jeffery SPEC GRAVITY 1.015 Normal 1.005-<=1.025 [facility] Comment on above: Performed By: #### M G, URIC, RENAL #### [facility] [address] [address] [address] Nacho Jeffery UA PROTEIN Negative Normal NEGATIVE/ TRACE [facility] Comment on above: Performed By: #### M G, URIC, RENAL #### [facility] [address] [address] [address] Nacho Jeffery Urobilinogen Qn (U) 0.2 {Zuleyka'U}/dL Normal 0.2 - 1. 0 The [facility] Comment on above: Performed By: #### M G, URIC, RENAL #### [facility] [address] [address] [address] Nacho Jeffery WBC 5-10 Abnormal NONE SEEN The [facility] Comment on above: Performed By: #### M G, URIC, RENAL #### [facility] [address] [address] [address] Nacho Jeffery URIC ACID SERUMon 03-30-2022 Urate [Mass/Vol] 7.0 mg/dL Critically high 2.6-6.0 [facility] Comment on above: Performed By: #### M G, URIC, RENAL #### [facility] [address] [address] [address] Nacho Jeffery URINE T PROTEIN CREAT RATIOo n 03-30-2022 Protein (U) [Mass/Vol] 7.1 mg/dL Normal <=12.0 The [facility] Comment on above: Performed By: #### U RTPCR #### [facility] [address] [address] [address] Nacho Jeffery UR PROT CREAT RAT 0.06 Normal [facility] Comment on above: Performed By: #### U RTPCR #### [facility] [address] [address] [address] Nacho Jeffery URINE CREAT 113.23 mg/dL Normal 20.00-300.00 [facility] Comment on above: Performed By: #### U RTPCR #### [facility] [address] [address] [address] Nacho Jeffery VITAMIN D 25 OHon 03-30-2022 VIT D 25-OH 57.4 ng/mL Normal [facility] Comment on above: Performed By: #### M G, URIC, RENAL #### [facility] [address] [place] [address] Dr. Nacho Jeffery VIT D RANGES SEE BELOW Normal The [facility] Comment on above: Result Comment: <20 ng/mL Vit D deficient 20 - <30 ng/mL Vit D insufficient 30 - 100 ng/mL Vit D sufficient >100 ng/mL Potential Toxicity Performed By: #### M G, URIC, RENAL #### [facility] [address] [address] [address] [facility] 08-30-2021 Albumin [Mass/Vol] 3.7 g/dL Normal 3.6-5.1 [facility] Comment on above: Performed By: #### 1 0231, 7600 #### [facility] [address] [address] [employer] Physical Therapist: Mauricio Kern MD Albumin/Globulin [Mass ratio] 1.4 {ratio} Normal 1.0-2.5 [facility] Comment on above: Performed By: #### 1 023, 7600 #### [facility] [address] [address] [employer] Physical Therapist: Mauricio Kern MD ALP [Catalytic activity/Vol] 98 U/L Normal 37-153 [facility] Comment on above: Performed By: #### 1 0231, 7600 #### [facility] [address] [address] [employer] Physical Therapist: Mauricio Kern MD ALT [Catalytic activity/Vol] 23 U/L Normal 6-29 [facility] Comment on above: Performed By: #### 1 0231, 7600 #### [facility] [place] [address] [employer] Physical Therapist: Mauricio Kern MD AST [Catalytic activity/Vol] 22 U/L Normal 10-35 [facility] Comment on above: Performed By: #### 1 0231, 7600 #### [facility] [place] [address] [employer] Physical Therapist: Mauricio Kern MD Bilirubin [Mass/Vol] 0.4 mg/dL Normal 0.2-1.2 [facility] Comment on above: Performed By: #### 1 023, 7600 #### [facility] [address], [address] [place] [address] [employer] Physical Therapist: Mauricio Kern MD Calcium [Mass/Vol] 9.2 mg/dL Normal 8.6-10.4 [facility] Comment on above: Performed By: #### 1 023, 7600 #### [facility] [place] [address] [employer] Physical Therapist: Mauricio Kern MD Chloride [Moles/Vol] 103 mmol/L Normal 98-110 [facility] Comment on above: Performed By: #### 1 023, 7600 #### [facility] [place] [address] [employer] Physical Therapist: Mauricio Kern MD CO2 [Moles/Vol] 28 mmol/L Normal 20-32 [facility] Comment on above: Performed By: #### 1 023, 7600 #### [facility] [place] [address] [employer] Physical Therapist: Mauricio Kern MD Creatinine [Mass/Vol] 2.22 mg/dL High 0.60-0.93 [facility] Comment on above: Result Comment: For patients >49 years of age, the reference limit for Creatinine is approximately 13% higher for people identified as -[place]. Performed By: #### 1 023, 7600 #### [facility] [place] [address] [employer] Physical Therapist: Mauricio Kern MD eGFR NON-AFR. QATARI 21 mL/min/1.73m2 Low > OR = 60 [facility] Comment on above: Performed By: #### 1 023, 7600 #### [facility] [place] [address] [place] [address] [employer] Physical Therapist: Mauricio Kern MD GFR/1.73 sq M.predicted among blacks MDRD (S/P/Bld) [Vol rate/Area] 24 mL/min/{1.73_m2} Low > OR = 60 [facility] Comment on above: Performed By: #### 1 023, 7600 #### [facility] [place] [address] [employer] Physical Therapist: Mauricio Kern MD Globulin (S) [Mass/Vol] 2.7 g/dL Normal 1.9-3.7 [facility] Comment on above: Performed By: #### 1 230, 7600 #### [facility] [place] [address] [employer] Physical Therapist: Mauricio Kern MD Glucose [Mass/Vol] 107 mg/dL High 65-99 [facility] Comment on above: Result Comment: Fasting reference interval For someone without known diabetes, a glucose value between 100 and 125 mg/dL is consistent with prediabetes and should be confirmed with a follow-up test. Performed By: #### 1 230, 0 #### [facility] [place] [address] [employer] Physical Therapist: Mauricio Kern MD Potassium [Moles/Vol] 4.7 mmol/L Normal 3.5-5.3 [facility] Comment on above: Performed By: #### 1 230, 0 #### [facility] [place] [address] [employer] Physical Therapist: Mauricio Kern MD Protein [Mass/Vol] 6.4 g/dL Normal 6.1-8.1 [facility] Comment on above: Performed By: #### 1 023, 7600 #### [facility] [place] [address] [employer] Physical Therapist: Mauricio Kern MD Sodium [Moles/Vol] 141 mmol/L Normal 135-146 [facility] Comment on above: Performed By: #### 1 023, 7600 #### [facility] [place] [address] [employer] Physical Therapist: Mauricio Kern MD Urea nitrogen [Mass/Vol] 69 mg/dL High 7-25 [facility] Comment on above: Performed By: #### 1 0231, 7600 #### [facility] [address], [address] [place] [address] [employer] Physical Therapist: Mauricio Kern MD Urea nitrogen/Creatinine [Mass ratio] 31 mg/mg High 05-03 [facility] Comment on above: Performed By: #### 1 023, 7600 #### [facility] [address], [address] [place] [address] [employer] Physical Therapist: Mauricio Kern MD LIPID PANEL, [place] [address] Cholesterol [Mass/Vol] 142 mg/dL Normal <200 [facility] Comment on above: Order Comment: FASTI NG:YES FASTING: YES Performed By: #### 1 023, 7600 #### [facility] [address], [address] [place] [address] [employer] Physical Therapist: Mauricio Kern MD Cholesterol in HDL [Mass/Vol] 47 mg/dL Low > OR = 50 [facility] Comment on above: Order Comment: FASTI NG:YES FASTING: YES Performed By: #### 1 023, 7600 #### [facility] [address], [address] [place] [address] [employer] Physical Therapist: Mauricio Kern MD Cholesterol in LDL [Mass/Vol] [...] LDL-C. Sean BREAUX et al. SHRUTHI. 2013;310(19): 0121-1573 (http://education.Visualmarks.[employer]/faq/SGD447) Performed By: #### 1 023, 7600 #### [facility] [address], [address] [place] [address] [employer] Physical Therapist: Mauricio Kern MD Cholesterol.total/C holesterol in HDL [Mass ratio] 3.0 {ratio} Normal <5.0 [facility] Comment on above: Order Comment: FASTI NG:YES FASTING: YES Performed By: #### 1 230, 0 #### [facility] [address], [address] [place] [address] [employer] Physical Therapist: Mauricio Kern MD NON HDL CHOLESTEROL 95 mg/dL (calc) Normal <130 [facility] Comment on above: Order Comment: FASTI NG:YES FASTING: YES Result Comment: For patients with diabetes plus 1 major ASCVD risk factor, treating to a non-HDL-C goal of <100 mg/dL (LDL-C of <70 mg/dL) is considered a therapeutic option. Performed By: #### 1 230, 0 #### [facility] [address], [address] [place] [address] [employer] Physical Therapist: Mauricio Kern MD Triglyceride [Mass/Vol] 188 mg/dL High <150 [facility] Comment on above: Order Comment: FASTI NG:YES FASTING: YES Performed By: #### 1 230, 7599 #### [facility] [address], [address] [place] [address] School Physical Therapist: Mauricio Kern MD BASIC METABOLIC PANELon 05- Calcium [Mass/Vol] 10.0 mg/dL Normal 8.6-10.3 [facility] Comment on above: Performed By: #### 0 0071 #### [facility] [address] [place] [address], [place] Chloride [Moles/Vol] 101 mmol/L Normal 98-107 [facility] Comment on above: Performed By: #### 0 0071 #### [facility] [address] [place] [address], [place] CO2 [Moles/Vol] 28 mmol/L Normal 21-31 [facility] Comment on above: Performed By: #### 0 0071 #### [facility] [address] [place] [address], [place] Creatinine [Mass/Vol] 1.96 mg/dL High 0.60-1.20 The [facility] Comment on above: Performed By: #### 0 0071 #### [facility] [address] [place] [address], [facility] eGFR- 30 ml/min/1.73sq m Abnormal >60 [facility] Comment on above: Result Comment: Calc ulation may not be valid for patients over 70 years Performed By: #### 0 0071 #### [facility] [address] [place] [address], [facility] eGFR- non- 24 ml/min/1.73sq m Abnormal >60 [facility] Comment on above: Result Comment: Calc ulation may not be valid for patients over 70 years Performed By: #### 0 0071 #### [facility] [address] [place] [address], [facility] Glucose [Mass/Vol] 171 mg/dL High 70-100 [facility] Comment on above: Performed By: #### 0 0071 #### [facility] [address] [place] [address], [facility] Potassium [Moles/Vol] 3.9 mmol/L Normal 3.5-5.1 The [facility] Comment on above: Performed By: #### 0 0071 #### [facility] [address] [place] [address], [facility] Sodium [Moles/Vol] 139 mmol/L Normal 136-145 [facility] Comment on above: Performed By: #### 0 0071 #### [facility] [address] [place] [address], [facility] Urea nitrogen [Mass/Vol] 66 mg/dL High 7-25 The [facility] Comment on above: Performed By: #### 0 0071 #### [facility] [address] [place] [id number], [facility] Cardiovascular Lab Reporton 03-30-2021 Cardiovascular Lab Report [facility] Patient Name: Adore Dugan [facility] MR #: [id number] Physician: Moe Parham, Department of M.D. Medicine Service Date: 03/30/2021 Division of Birthdate: 1940 Cardiology Room #: Adult Cardiovascular Services [facility] [address] [place], [place] [address] Cardiovascular Laboratory Report FINAL IMPRESSIONS: 1. Moderate [...] enzyme inhibitor/receptor micki. 4. Follow up with [facility] Cardiology in the next 2 to [...] the left radial artery was obtained. A 6-Irish glide sheath was inserted without difficulty. Bilateral selective coronary angiography was performed using JL4 and a 4-Irish 3DRC catheter. After reviewing the images and [...] Parham M.D. Date Trans: 03/30/2021 03:19 P/molly [id number] cc: Fernie Hcakett M.D. [address] [place] [address] [facility] Vital Signs Date Time Vital Sign Value Performing Clinician Facility 11-04-2024 09:42-0500 Body height 165.1 cm Pfo 1 [facility] 11-04-2024 09:42-0500 Body mass index (BMI) [Ratio] 45.26 kg/m2 Pfo 1 [facility] 11-04-2024 09:42-0500 Body temperature 97.5 [degF] Pfo 1 [facility] 11-04-2024 09:42-0500 Body weight 123.38 kg Pfo 1 [facility] 11-04-2024 09:42-0500 Diastolic blood pressure 65 mm[Hg] Pfo 1 [facility] 11-04-2024 09:42-0500 Heart rate 65 /min Pfo 1 [facility] 11-04-2024 09:42-0500 Respiratory rate 18 /min Pfo 1 [facility] 11-04-2024 09:42-0500 SaO2% (BldA) [Mass fraction] 98 % Pfo 1 [facility] 11-04-2024 09:42-0500 Systolic blood pressure 153 mm[Hg] Pfo 1 [facility] 10-07-2024 09:29-0500 Body height 165.1 cm Pfo 2 [facility] 10-07-2024 09:29-0500 Body mass index (BMI) [Ratio] 45.26 kg/m2 Pfo 2 [facility] 10-07-2024 09:29-0500 Body temperature 97.59 [degF] Pfo 2 [facility] 10-07-2024 09:29-0500 Body weight 123.38 kg Pfo 2 [facility] 10-07-2024 09:29-0500 Diastolic blood pressure 63 mm[Hg] Pfo 2 [facility] 10-07-2024 09:29-0500 Heart rate 72 /min Pfo 2 [facility] 10-07-2024 09:29-0500 Respiratory rate 18 /min Pfo 2 [facility] 10-07-2024 09:29-0500 SaO2% (BldA) [Mass fraction] 94 % Pfo 2 [facility] 10-07-2024 09:29-0500 Systolic blood pressure 155 mm[Hg] Pfo 2 [facility] 10-01-2024 09:24-0500 Body height 165.1 cm Pfo 5 [facility] 10-01-2024 09:24-0500 Body mass index (BMI) [Ratio] 45.26 kg/m2 Pfo 5 [facility] 10-01-2024 09:24-0500 Body temperature 97.39 [degF] Pfo 5 [facility] 10-01-2024 09:24-0500 Body weight 123.38 kg Pfo 5 [facility] 10-01-2024 09:24-0500 Diastolic blood pressure 56 mm[Hg] Pfo 5 [facility] 10-01-2024 09:24-0500 Heart rate 76 /min Pfo 5 [facility] 10-01-2024 09:24-0500 Respiratory rate 16 /min Pfo 5 [facility] 10-01-2024 09:24-0500 SaO2% (BldA) [Mass fraction] 96 % Pfo 5 [facility] 10-01-2024 09:24-0500 Systolic blood pressure 153 mm[Hg] Pfo 5 [facility] 09-10-2024 09:21-0400 Body temperature 97.7 [degF] Pfo 5 [facility] 09-10-2024 09:21-0400 Diastolic blood pressure 61 mm[Hg] Pfo 5 [facility] 09-10-2024 09:21-0400 Heart rate 68 /min Pfo 5 [facility] 09-10-2024 09:21-0400 Respiratory rate 18 /min Pfo 5 [facility] 09-10-2024 09:21-0400 SaO2% (BldA) [Mass fraction] 99 % Pfo 5 [facility] 09-10-2024 09:21-0400 Systolic blood pressure 164 mm[Hg] Pfo 5 [facility] 08-27-2024 09:27-0400 Body height 165.1 cm Pfo 5 [facility] 08-27-2024 09:27-0400 Body mass index (BMI) [Ratio] 46.1 kg/m2 Pfo 5 [facility] 08-27-2024 09:27-0400 Body temperature 97.39 [degF] Pfo 5 [facility] 08-27-2024 09:27-0400 Body weight 125.65 kg Pfo 5 [facility] 08-27-2024 09:27-0400 Diastolic blood pressure 86 mm[Hg] Pfo 5 [facility] 08-27-2024 09:27-0400 Heart rate 75 /min Pfo 5 [facility] 08-27-2024 09:27-0400 Respiratory rate 16 /min Pfo 5 [facility] 08-27-2024 09:27-0400 SaO2% (BldA) [Mass fraction] 98 % Pfo 5 [facility] 08-27-2024 09:27-0400 Systolic blood pressure 151 mm[Hg] Pfo 5 [facility] 08-20-2024 09:17-0400 Body height 165.1 cm Pfo 5 [facility] 08-20-2024 09:17-0400 Body mass index (BMI) [Ratio] 46.1 kg/m2 Pfo 5 [facility] 08-20-2024 09:17-0400 Body temperature 97.59 [degF] Pfo 5 [facility] 08-20-2024 09:17-0400 Body weight 125.65 kg Pfo 5 [facility] 08-20-2024 09:17-0400 Diastolic blood pressure 67 mm[Hg] Pfo 5 [facility] 08-20-2024 09:17-0400 Heart rate 66 /min Pfo 5 [facility] 08-20-2024 09:17-0400 Respiratory rate 16 /min Pfo 5 [facility] 08-20-2024 09:17-0400 SaO2% (BldA) [Mass fraction] 99 % Pfo 5 [facility] 08-20-2024 09:17-0400 Systolic blood pressure 167 mm[Hg] Pfo 5 [facility] 08-13-2024 09:20-0400 Body height 165.1 cm Pfo 4 [facility] 08-13-2024 09:20-0400 Body mass index (BMI) [Ratio] 46.1 kg/m2 Pfo 4 [facility] 08-13-2024 09:20-0400 Body temperature 97.59 [degF] Pfo 4 [facility] 08-13-2024 09:20-0400 Body weight 125.65 kg Pfo 4 [facility] 08-13-2024 09:20-0400 Diastolic blood pressure 65 mm[Hg] Pfo 4 [facility] 08-13-2024 09:20-0400 Heart rate 70 /min Pfo 4 [facility] 08-13-2024 09:20-0400 Respiratory rate 16 /min Pfo 4 [facility] 08-13-2024 09:20-0400 SaO2% (BldA) [Mass fraction] 96 % Pfo 4 [facility] 08-13-2024 09:20-0400 Systolic blood pressure 169 mm[Hg] Pfo 4 [facility] 05-01-2024 13:52-0400 Body height 165.1 cm [facility] 05-01-2024 13:52-0400 Body mass index (BMI) [Ratio] 47.5 kg/m2 [facility] 05-01-2024 13:52-0400 Body temperature 96.7 [degF] [facility] 05-01-2024 13:52-0400 Body weight 129.38 kg [facility] 05-01-2024 13:52-0400 Diastolic blood pressure 60 mm[Hg] [facility] 05-01-2024 13:52-0400 Heart rate 76 /min [facility] 05-01-2024 13:52-0400 Respiratory rate 18 /min [facility] 05-01-2024 13:52-0400 SaO2% (BldA) [Mass fraction] 95 % [facility] 05-01-2024 13:52-0400 Systolic blood pressure 130 mm[Hg] [facility] 02-13-2024 09:26-0400 Body height 165.1 cm Pfo 6 [facility] 02-13-2024 09:26-0400 Body mass index (BMI) [Ratio] 44.6 kg/m2 Pfo 6 [facility] 02-13-2024 09:26-0400 Body temperature 97.7 [degF] Pfo 6 [facility] 02-13-2024 09:26-0400 Body weight 121.56 kg Pfo 6 [facility] 02-13-2024 09:26-0400 Diastolic blood pressure 60 mm[Hg] Pfo 6 [facility] 02-13-2024 09:26-0400 Heart rate 60 /min Pfo 6 [facility] 02-13-2024 09:26-0400 Respiratory rate 18 /min Pfo 6 [facility] 02-13-2024 09:26-0400 SaO2% (BldA) [Mass fraction] 94 % Pfo 6 [facility] 02-13-2024 09:26-0400 Systolic blood pressure 162 mm[Hg] Pfo 6 [facility] 02-06-2024 09:30-0400 Body height 165.1 cm Pfo 6 [facility] 02-06-2024 09:30-0400 Body mass index (BMI) [Ratio] 44.6 kg/m2 Pfo 6 [facility] 02-06-2024 09:30-0400 Body temperature 97.9 [degF] Pfo 6 [facility] 02-06-2024 09:30-0400 Body weight 121.56 kg Pfo 6 [facility] 02-06-2024 09:30-0400 Diastolic blood pressure 75 mm[Hg] Pfo 6 [facility] 02-06-2024 09:30-0400 Heart rate 60 /min Pfo 6 [facility] 02-06-2024 09:30-0400 Respiratory rate 188 /min Pfo 6 [facility] 02-06-2024 09:30-0400 SaO2% (BldA) [Mass fraction] 98 % Pfo 6 [facility] 02-06-2024 09:30-0400 Systolic blood pressure 176 mm[Hg] Pfo 6 [facility] 01-30-2024 09:25-0400 Body height 165.1 cm Pfo 6 [facility] 01-30-2024 09:25-0400 Body mass index (BMI) [Ratio] 44.93 kg/m2 Pfo 6 [facility] 01-30-2024 09:25-0400 Body temperature 97.7 [degF] Pfo 6 [facility] 01-30-2024 09:25-0400 Body weight 122.47 kg Pfo 6 [facility] 01-30-2024 09:25-0400 Diastolic blood pressure 60 mm[Hg] Pfo 6 [facility] 01-30-2024 09:25-0400 Heart rate 56 /min Pfo 6 [facility] 01-30-2024 09:25-0400 Respiratory rate 18 /min Pfo 6 [facility] 01-30-2024 09:25-0400 SaO2% (BldA) [Mass fraction] 93 % Pfo 6 [facility] 01-30-2024 09:25-0400 Systolic blood pressure 168 mm[Hg] Pfo 6 [facility] 01-23-2024 09:33-0400 Body height 165.1 cm Pfo 6 [facility] 01-23-2024 09:33-0400 Body mass index (BMI) [Ratio] 45.93 kg/m2 Pfo 6 [facility] 01-23-2024 09:33-0400 Body temperature 97.39 [degF] Pfo 6 [facility] 01-23-2024 09:33-0400 Body weight 125.19 kg Pfo 6 [facility] 01-23-2024 09:33-0400 Diastolic blood pressure 73 mm[Hg] Pfo 6 [facility] 01-23-2024 09:33-0400 Heart rate 66 /min Pfo 6 [facility] 01-23-2024 09:33-0400 Respiratory rate 18 /min Pfo 6 [facility] 01-23-2024 09:33-0400 SaO2% (BldA) [Mass fraction] 98 % Pfo 6 [facility] 01-23-2024 09:33-0400 Systolic blood pressure 180 mm[Hg] Pfo 6 [facility] 01-16-2024 09:24-0500 Body height 165.1 cm Pfo 6 [facility] 01-16-2024 09:24-0500 Body mass index (BMI) [Ratio] 46.1 kg/m2 Pfo 6 [facility] 01-16-2024 09:24-0500 Body temperature 98.01 [degF] Pfo 6 [facility] 01-16-2024 09:24-0500 Body weight 125.65 kg Pfo 6 [facility] 01-16-2024 09:24-0500 Diastolic blood pressure 80 mm[Hg] Pfo 6 [facility] 01-16-2024 09:24-0500 Heart rate 71 /min Pfo 6 [facility] 01-16-2024 09:24-0500 Respiratory rate 18 /min Pfo 6 [facility] 01-16-2024 09:24-0500 SaO2% (BldA) [Mass fraction] 97 % Pfo 6 [facility] 01-16-2024 09:24-0500 Systolic blood pressure 180 mm[Hg] Pfo 6 [facility] 01-09-2024 09:36-0500 Body height 165.1 cm Pfo 3 [facility] 01-09-2024 09:36-0500 Body mass index (BMI) [Ratio] 46.1 kg/m2 Pfo 3 [facility] 01-09-2024 09:36-0500 Body temperature 97.9 [degF] Pfo 3 [facility] 01-09-2024 09:36-0500 Body weight 125.65 kg Pfo 3 [facility] 01-09-2024 09:36-0500 Diastolic blood pressure 75 mm[Hg] Pfo 3 [facility] 01-09-2024 09:36-0500 Heart rate 70 /min Pfo 3 [facility] 01-09-2024 09:36-0500 Respiratory rate 18 /min Pfo 3 [facility] 01-09-2024 09:36-0500 SaO2% (BldA) [Mass fraction] 97 % Pfo 3 [facility] 01-09-2024 09:36-0500 Systolic blood pressure 180 mm[Hg] Pfo 3 [facility] 01-02-2024 09:37-0500 Body temperature 98.01 [degF] Pfo 4 [facility] 01-02-2024 09:37-0500 Diastolic blood pressure 72 mm[Hg] Pfo 4 [facility] 01-02-2024 09:37-0500 Heart rate 62 /min Pfo 4 [facility] 01-02-2024 09:37-0500 Respiratory rate 18 /min Pfo 4 [facility] 01-02-2024 09:37-0500 SaO2% (BldA) [Mass fraction] 95 % Pfo 4 [facility] 01-02-2024 09:37-0500 Systolic blood pressure 184 mm[Hg] Pfo 4 [facility] 12-26-2023 09:37-0500 Body height 165.1 cm Pfo 4 [facility] 12-26-2023 09:37-0500 Body mass index (BMI) [Ratio] 46.1 kg/m2 Pfo 4 [facility] 12-26-2023 09:37-0500 Body temperature 97.7 [degF] Pfo 4 [facility] 12-26-2023 09:37-0500 Body weight 125.65 kg Pfo 4 [facility] 12-26-2023 09:37-0500 Diastolic blood pressure 64 mm[Hg] Pfo 4 [facility] 12-26-2023 09:37-0500 Heart rate 67 /min Pfo 4 [facility] 12-26-2023 09:37-0500 Respiratory rate 18 /min Pfo 4 [facility] 12-26-2023 09:37-0500 SaO2% (BldA) [Mass fraction] 96 % Pfo 4 [facility] 12-26-2023 09:37-0500 Systolic blood pressure 177 mm[Hg] Pfo 4 [facility] 12-19-2023 09:30-0500 Body height 165.1 cm Pfo 2 [facility] 12-19-2023 09:30-0500 Body mass index (BMI) [Ratio] 46.13 kg/m2 Pfo 2 [facility] 12-19-2023 09:30-0500 Body temperature 97.39 [degF] Pfo 2 [facility] 12-19-2023 09:30-0500 Body weight 125.74 kg Pfo 2 [facility] 12-19-2023 09:30-0500 Diastolic blood pressure 67 mm[Hg] Pfo 2 [facility] 12-19-2023 09:30-0500 Heart rate 67 /min Pfo 2 [facility] 12-19-2023 09:30-0500 Respiratory rate 18 /min Pfo 2 [facility] 12-19-2023 09:30-0500 SaO2% (BldA) [Mass fraction] 97 % Pfo 2 [facility] 12-19-2023 09:30-0500 Systolic blood pressure 196 mm[Hg] Pfo 2 [facility] 12-12-2023 09:25-0500 Body height 165.1 cm Pfo 2 [facility] 12-12-2023 09:25-0500 Body mass index (BMI) [Ratio] 45.43 kg/m2 Pfo 2 [facility] 12-12-2023 09:25-0500 Body temperature 97.5 [degF] Pfo 2 [facility] 12-12-2023 09:25-0500 Body weight 123.83 kg Pfo 2 [facility] 12-12-2023 09:25-0500 Diastolic blood pressure 71 mm[Hg] Pfo 2 [facility] 12-12-2023 09:25-0500 Heart rate 70 /min Pfo 2 [facility] 12-12-2023 09:25-0500 Respiratory rate 18 /min Pfo 2 [facility] 12-12-2023 09:25-0500 SaO2% (BldA) [Mass fraction] 98 % Pfo 2 [facility] 12-12-2023 09:25-0500 Systolic blood pressure 166 mm[Hg] Pfo 2 [facility] 11-28-2023 09:17-0500 Body height 165.1 cm Pfo 1 [facility] 11-28-2023 09:17-0500 Body mass index (BMI) [Ratio] 44.93 kg/m2 Pfo 1 [facility] 11-28-2023 09:17-0500 Body temperature 97.2 [degF] Pfo 1 [facility] 11-28-2023 09:17-0500 Body weight 122.47 kg Pfo 1 [facility] 11-28-2023 09:17-0500 Diastolic blood pressure 56 mm[Hg] Pfo 1 [facility] 11-28-2023 09:17-0500 Heart rate 79 /min Pfo 1 [facility] 11-28-2023 09:17-0500 Respiratory rate 18 /min Pfo 1 [facility] 11-28-2023 09:17-0500 SaO2% (BldA) [Mass fraction] 99 % Pfo 1 [facility] 11-28-2023 09:17-0500 Systolic blood pressure 156 mm[Hg] Pfo 1 [facility] 11-21-2023 10:01-0500 Body height 165.1 cm Pfo 1 [facility] 11-21-2023 10:01-0500 Body mass index (BMI) [Ratio] 44.6 kg/m2 Pfo 1 [facility] 11-21-2023 10:01-0500 Body temperature 97.81 [degF] Pfo 1 [facility] [employer] [facility] 11-21-2023 10:01-0500 Body weight 121.56 kg Pfo 1 [facility] 11-21-2023 10:01-0500 Diastolic blood pressure 52 mm[Hg] Pfo 1 [facility] 11-21-2023 10:01-0500 Heart rate 62 /min Pfo 1 [facility] 11-21-2023 10:01-0500 Respiratory rate 18 /min Pfo 1 [facility] 11-21-2023 10:01-0500 SaO2% (BldA) [Mass fraction] 94 % Pfo 1 [facility] 11-21-2023 10:01-0500 Systolic blood pressure 122 mm[Hg] Pfo 1 [facility] 11-16-2023 09:00-0500 Body temperature 96.6 [degF] DO FernieDuPontlong Work Phone: [facility] 11-16-2023 09:00-0500 Diastolic blood pressure 74 mm[Hg] DO Fernie Furlong Work Phone: [facility] 11-16-2023 09:00-0500 Heart rate 71 /min DO Fernie Furlong Work Phone: [facility] 11-16-2023 09:00-0500 Respiratory rate 18 /min DO Fernie Furlong Work Phone: [facility] 11-16-2023 09:00-0500 SaO2% (BldA) [Mass fraction] 97 % DO Fernie Furlong Work Phone: [facility] 11-16-2023 09:00-0500 Systolic blood pressure 148 mm[Hg] DO Fernie Hackett Work Phone: [facility] 08-23-2023 12:20-0400 Body height 165.1 cm Gia Tammy Other [employer] Other 08-23-2023 12:20-0400 Body mass index (BMI) [Ratio] 44.09 kg/m2 Gia Tammy Other [employer] Other 08-23-2023 12:20-0400 Body temperature 96.6 [degF] Gia Tammy Other [employer] Other 08-23-2023 12:20-0400 Body weight 120.2 kg Gia Tammy Other [employer] Other 08-23-2023 12:20-0400 Diastolic blood pressure 86 mm[Hg] Gia Tammy Other [employer] Other 08-23-2023 12:20-0400 Respiratory rate 18 /min Gia Tammy Other [employer] Other 08-23-2023 12:20-0400 SaO2% (BldA) [Mass fraction] 96 % Gia Tammy Other [employer] Other 08-23-2023 12:20-0400 Systolic blood pressure 138 mm[Hg] Gia Tammy Other [employer] Other 01-25-2023 12:20-0400 Body height 165.1 cm Gia Tammy Other [employer] Other 01-25-2023 12:20-0400 Body mass index (BMI) [Ratio] 45.76 kg/m2 Gia Tammy Other [employer] Other 01-25-2023 12:20-0400 Body temperature 96.7 [degF] Gia Tammy Other [employer] Other 01-25-2023 12:20-0400 Body weight 124.74 kg Gia Tammy Other [employer] Other 01-25-2023 12:20-0400 Diastolic blood pressure 80 mm[Hg] Gia Tammy Other [employer] Other 01-25-2023 12:20-0400 Respiratory rate 18 /min Gia Tammy Other [employer] Other 01-25-2023 12:20-0400 SaO2% (BldA) [Mass fraction] 96 % Gia Tammy Other [employer] Other 01-25-2023 12:20-0400 Systolic blood pressure 139 mm[Hg] Gia Tammy Other [employer] Other 07-20-2022 13:00-0400 Body height 165.1 cm Gia Tammy Other [employer] Other 07-20-2022 13:00-0400 Body temperature 96 [degF] Gia Tammy Other [employer] Other 07-20-2022 13:00-0400 Diastolic blood pressure 71 mm[Hg] Gia Tammy Other [employer] Other 07-20-2022 13:00-0400 Respiratory rate 18 /min Gia Tammy Other [employer] Other 07-20-2022 13:00-0400 SaO2% (BldA) [Mass fraction] 96 % Gia Tammy Other [employer] Other 07-20-2022 13:00-0400 Systolic blood pressure 134 mm[Hg] Gia Tammy Other [employer] Other 04-06-2022 12:00-0400 Body height 165.1 cm Gia Tammy Other [employer] Other 04-06-2022 12:00-0400 Body mass index (BMI) [Ratio] 46.32 kg/m2 Gia Tammy Other [employer] Other 04-06-2022 12:00-0400 Body temperature 98 [degF] Gia Tammy Other [employer] Other 04-06-2022 12:00-0400 Body weight 126.28 kg Gia Tammy Other [employer] Other 04-06-2022 12:00-0400 Diastolic blood pressure 70 mm[Hg] Gia Tammy Other [employer] Other 04-06-2022 12:00-0400 Respiratory rate 20 /min Gia Tammy Other [employer] Other 04-06-2022 12:00-0400 SaO2% (BldA) [Mass fraction] 93 % Gia Tammy Other [employer] Other 04-06-2022 12:00-0400 Systolic blood pressure 122 mm[Hg] Gia Tammy Other [employer] Other 12-27-2021 16:20-0500 Body height 165.1 cm Gia Tammy Other [employer] Other 12-27-2021 16:20-0500 Body mass index (BMI) [Ratio] 46.29 kg/m2 Gia Tammy Other [employer] Other 12-27-2021 16:20-0500 Body temperature 96.2 [degF] Gia Tammy Other [employer] Other 12-27-2021 16:20-0500 Body weight 126.19 kg Gia Tammy Other [employer] Other 12-27-2021 16:20-0500 Diastolic blood pressure 78 mm[Hg] Gia Tammy Other [employer] Other 12-27-2021 16:20-0500 Respiratory rate 20 /min Gia Tammy Other [employer] Other 12-27-2021 16:20-0500 SaO2% (BldA) [Mass fraction] 95 % Gia Tammy Other [employer] Other 12-27-2021 16:20-0500 Systolic blood pressure 161 mm[Hg] Gia Tammy Other [facility] [employer] Other Encounters Encounter Date Encounter Type Care Provider Facility Start: 11-24-2024 End: 11-24-2024 Telephone encounter Fernie Hackett DO Work Phone: [facility] Start: 11-20-2024 End: 11-20-2024 ambulatory Fernie Hackett DO Work Phone: [facility] Work Phone: Start: 11-20-2024 End: 11-20-2024 Departed Referred Fernie Hackett DO Work Phone: [facility] Start: 11-18-2024 End: 11-18-2024 Orders Only Fannie hu [facility] Medical Oncology Comment on above: Hypomagnesemia (Prim fara Dx) Start: 11-17-2024 End: 11-19-2024 Telephone encounter [facility] Hack[facility] Start: 11-17-2024 End: 11-17-2024 ambulatory FERNIE Ricketts [facility] Start: 11-10-2024 End: 11-10-2024 ambulatory [facility] Start: 11-04-2024 End: 11-04-2024 ambulatory Pfo Infusion Bed 1 Elida hu [facility] Oncology Comment on above: Hypomagnesemia (Prim fara Dx) Start: 11-03-2024 End: 11-03-2024 Refill Fernie Hackett DO Work Phone: [facility] Start: 11-03-2024 End: 11-03-2024 Orders Only Fernie Hackett DO Work Phone: [facility] Start: 11-03-2024 End: 11-03-2024 ambulatory Christian Curtis MD Facility:[facility] Start: 10-27-2024 End: 10-27-2024 [facility] Start: 10-20-2024 End: 10-20-2024 Documentation procedure Clara Lira [facility] - Medical Oncology Start: 10-20-2024 End: 10-20-2024 [facility] Start: 10-13-2024 End: 10-13-2024 [facility] Start: 10-07-2024 End: 10-14-2024 Refill Fernie Hackett DO Work Phone: [facility] Start: 10-07-2024 End: 10-07-2024 ambulatory Pfo Infusion Chair 2 Elida Ireland [facility] - Medical Oncology Comment on above: Hypomagnesemia (Prim fara Dx) Start: 10-06-2024 End: 10-06-2024 [facility] Start: 10-01-2024 End: 10-01-2024 ambulatory Pfo Infusion Chair 5 Elida Ireland [facility] - Medical Oncology Comment on above: Hypomagnesemia (Prim fara Dx) Start: 09-29-2024 End: 09-29-2024 [facility] Start: 09-27-2024 End: 09-27-2024 Orders Only Fernie Hackett DO [facility] Start: 09-26-2024 End: 09-26-2024 Evaluation and management of inpatient [facility] Start: 09-22-2024 End: 09-22-2024 [facility] Start: 09-15-2024 End: 09-15-2024 [facility] Start: 09-11-2024 End: 09-11-2024 Refill Fernie Hackett DO Work Phone: [facility] Start: 09-10-2024 End: 09-10-2024 Telephone encounter Nina Mcgee [facility] Neurology Comment on above: EMG NEW PATIENT Start: 09-10-2024 End: 09-10-2024 ambulatory Pfo Infusion Chair 5 Elida Ireland [facility] Medical Oncology Comment on above: Hypomagnesemia (Prim fara Dx) Start: 09-08-2024 End: 09-08-2024 ambulatory [facility] Start: 09-04-2024 End: 09-04-2024 Orders Only Fernie Hackett DO Work Phone: [facility] Comment on above: Paresthesia of right lower extremity (Primary Dx); Ross's esophagus with dysplasia Start: 09-01-2024 End: 09-01-2024 Documentation procedure Americo Lira [facility] Medical Oncology Start: 09-01-2024 End: 09-01-2024 ambulatory [facility] Start: 08-27-2024 End: 08-27-2024 ambulatory Pfo Infusion Chair 5 Elida Ireland [facility] Medical Oncology Comment on above: Hypomagnesemia (Prim fara Dx) Start: 08-25-2024 End: 08-25-2024 [facility] Start: 08-22-2024 End: 08-25-2024 Refill Fernie Hackett DO Work Phone: [facility] Comment on above: 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 ([facility]) (Primary Dx); Morbid obesity ([facility]) Start: 08-20-2024 End: 08-20-2024 ambulatory Pfo Infusion Chair 5 Elida Ireland [facility] Medical Oncology Comment on above: Hypomagnesemia (Prim fara Dx) Start: 08-18-2024 End: 08-18-2024 ambulatory [facility] Start: 08-13-2024 End: 08-13-2024 ambulatory Pfo Infusion Chair 4 Elida Ireland [facility] - Medical Oncology Comment on above: Hypomagnesemia (Prim fara Dx) Start: 08-11-2024 End: 08-11-2024 ambulatory [facility] Start: 08-06-2024 End: 08-06-2024 ambulatory [facility] Start: 08-04-2024 End: 08-04-2024 ambulatory [facility] Start: 07-30-2024 End: 07-30-2024 ambulatory [facility] Start: 07-28-2024 End: 07-28-2024 ambulatory [facility] Start: 07-28-2024 End: 07-28-2024 ambulatory Christian Curtis MD Facility: [facility] Start: 07-23-2024 End: 07-23-2024 ambulatory [facility] Start: 07-21-2024 End: 07-21-2024 ambulatory [facility] Start: 07-16-2024 End: 07-16-2024 ambulatory [facility] Start: 07-15-2024 End: 07-15-2024 ambulatory [facility] Start: 07-09-2024 End: 07-09-2024 ambulatory [facility] Start: 07-07-2024 End: 07-07-2024 ambulatory [facility] Start: 07-02-2024 End: 07-02-2024 ambulatory [facility] Start: 06-30-2024 End: 06-30-2024 ambulatory [facility] Start: 06-25-2024 End: 06-25-2024 ambulatory [facility] Start: 06-23-2024 End: 06-23-2024 ambulatory [facility] Start: 06-18-2024 End: 06-18-2024 ambulatory [facility] Start: 06-16-2024 End: 06-16-2024 ambulatory [facility] Start: 06-11-2024 End: 06-11-2024 ambulatory [facility] Start: 06-09-2024 End: 06-09-2024 ambulatory [facility] Start: 06-04-2024 End: 06-04-2024 ambulatory [facility] Start: 06-02-2024 End: 06-02-2024 ambulatory [facility] Start: 05-30-2024 End: 05-30-2024 ambulatory [facility] Start: 05-28-2024 End: 05-28-2024 ambulatory [facility] Start: 05-27-2024 End: 05-27-2024 ambulatory [facility] Start: 05-27-2024 End: 05-27-2024 ambulatory [facility] Start: 05-26-2024 End: 05-26-2024 ambulatory [facility] Start: 05-21-2024 End: 05-21-2024 ambulatory [facility] Start: 05-19-2024 End: 05-19-2024 ambulatory [facility] Start: 05-14-2024 End: 05-14-2024 ambulatory [facility] Start: 05-12-2024 End: 05-12-2024 ambulatory [facility] Start: 05-07-2024 End: 05-07-2024 ambulatory [facility] Start: 05-05-2024 End: 05-05-2024 ambulatory [facility] Start: 05-01-2024 End: 05-01-2024 ambulatory [facility] Work Phone: Start: 05-01-2024 End: 05-01-2024 Patient encounter procedure [facility] Tod Work Phone: Start: 04-30-2024 End: 04-30-2024 ambulatory [facility] Start: 04-28-2024 Non-patient / Non-visit [facility]ph[facility] Work Phone: Start: 04-28-2024 End: 04-28-2024 ambulatory [facility] Start: 04-23-2024 End: 04-23-2024 ambulatory [facility] Start: 04-21-2024 End: 04-21-2024 ambulatory [facility] Start: 04-16-2024 End: 04-16-2024 ambulatory [facility] Start: 04-14-2024 End: 04-14-2024 ambulatory [facility] Start: 04-09-2024 End: 04-09-2024 ambulatory [facility] Start: 04-08-2024 End: 04-08-2024 ambulatory [facility] Start: 04-02-2024 End: 04-02-2024 ambulatory [facility] Start: 03-31-2024 End: 03-31-2024 ambulatory [facility] Start: 03-26-2024 End: 03-26-2024 ambulatory [facility] Start: 03-24-2024 End: 03-24-2024 ambulatory [facility] Start: 03-19-2024 End: 03-19-2024 ambulatory [facility] Start: 03-17-2024 End: 03-17-2024 ambulatory [facility] Start: 03-12-2024 End: 03-12-2024 ambulatory [facility] Start: 03-10-2024 End: 03-10-2024 ambulatory [facility] Start: 03-03-2024 End: 03-03-2024 ambulatory [facility] Start: 02-25-2024 End: 02-25-2024 ambulatory [facility] Start: 02-25-2024 End: 02-25-2024 ambulatory [facility] Start: 02-18-2024 End: 02-18-2024 ambulatory [facility] Start: 02-13-2024 End: 02-13-2024 ambulatory Pfo Infusion Chair 6 Elida Ireland [facility] - Medical Oncology Comment on above: Hypomagnesemia (Prim fara Dx) Start: 02-11-2024 End: 02-11-2024 ambulatory [facility] Start: 02-06-2024 End: 02-06-2024 [facility] on above: Hypomagnesemia (Prim fara Dx) Start: 02-04-2024 End: 02-04-2024 ambulatory [facility] Start: 02-04-2024 End: 02-04-2024 ambulatory Christian Curtis MD Facility:[facility] Start: 01-30-2024 End: 01-30-2024 ambulatory Pfo Infusion Chair 6 Elida Ireland [facility] - Medical Oncology Comment on above: Hypomagnesemia (Prim fara Dx) Start: 01-28-2024 End: 01-28-2024 ambulatory [facility] Start: 01-23-2024 End: 01-23-2024 ambulatory Pfo Infusion Chair 6 Elida Ireland [facility] - Medical Oncology Comment on above: Hypomagnesemia (Prim fara Dx) Start: 01-21-2024 End: 01-21-2024 ambulatory [facility] Start: 01-21-2024 End: 01-21-2024 ambulatory Christian Curtis MD Facility:[facility] Start: 01-17-2024 Orders Only Fernie noguera DO Work Phone: [facility] - Family Medicine Comment on above: Hypertension 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 ([facility]) (Primary Dx) Start: 01-16-2024 End: 01-16-2024 ambulatory Pfo Infusion Chair 6 Elida Ireland [facility] - Medical Oncology Comment on above: Hypomagnesemia (Prim fara Dx) Start: 01-14-2024 End: 01-14-2024 ambulatory [facility] Start: 01-09-2024 End: 01-09-2024 ambulatory Pfo Infusion Chair 3 Elida Ireland [facility] Medical Oncology Comment on above: Hypomagnesemia (Prim fara Dx) Start: 01-08-2024 End: 01-08-2024 Patient encounter procedure Fernie Hackett DO Work Phone: [facility] - Family Medicine Comment on above: Medicare annual well ness visit, subsequent (Primary Dx); Screening for depression Start: 01-08-2024 End: 01-08-2024 ambulatory [facility] Start: 01-07-2024 End: 01-07-2024 ambulatory [facility] Start: 01-02-2024 End: 01-11-2024 ambulatory Pfo Infusion Chair 4 Elida Ireland [facility] Medical Oncology Comment on above: Hypomagnesemia (Prim fraa Dx) Start: 12-31-2023 End: 12-31-2023 ambulatory [facility] Start: 12-26-2023 End: 12-26-2023 ambulatory Pfo Infusion Chair 4 Elida L Beka [facility] Medical Oncology Comment on above: Hypomagnesemia (Prim fara Dx) Start: 12-24-2023 End: 12-24-2023 [facility] Start: 12-19-2023 End: 12-19-2023 ambulatory Pfo Infusion Chair 2 Elida L Beka [facility] Medical Oncology Comment on above: Hypomagnesemia (Prim fara Dx) Start: 12-17-2023 End: 12-17-2023 ambulatory [facility] Start: 12-12-2023 End: 12-12-2023 ambulatory Pfo Infusion Chair 2 Elida L Beka [facility] Oncology Comment on above: Hypomagnesemia (Prim fara Dx) Start: 12-11-2023 Refill Theresa Dhaval [facility] Start: 12-10-2023 End: 12-10-2023 ambulatory [facility] Start: 12-07-2023 Orders Only Fernie noguera DO Work Phone: [facility] - Family Medicine Start: 12-05-2023 Telephone encounter Gia Tammy [facility] Neph[facility] Start: 12-05-2023 End: 12-05-2023 ambulatory FERNIE Ricketts TRACYANGEL LU[facility] [employer] Other Start: 12-04-2023 Refill Fernie noguera DO Work Phone: [facility] - Family Medicine Start: 12-03-2023 End: 12-03-2023 ambulatory [facility] Start: 11-28-2023 End: 11-28-2023 ambulatory [facility] Comment on above: Hypomagnesemia (Prim fara Dx) Start: 11-26-2023 End: 11-26-2023 ambulatory [facility] Start: 11-26-2023 End: 11-26-2023 ambulatory FERNIE HACKETT [facility] Start: 11-26-2023 End: 11-26-2023 ambulatory FERNIE HACKETT [facility] Start: 11-21-2023 End: 11-21-2023 ambulatory Pfo Infusion Bed 1 Elida René Ireland [facility] - Medical Oncology Comment on above: Hypomagnesemia (Prim fara Dx) Mixed hyperlipidemia (Primary Dx); Type 2 diabetes mellitus with stage 3b chronic kidney disease, with long-term current use of insulin ([facility]); Essential hypertension Start: 11-20-2023 Chart abstracting Felicity Merritt [facility] - Medical Oncology Start: 11-19-2023 End: 11-19-2023 ambulatory [facility] Comment on above: Hypomagnesemia (Prim fara Dx) Start: 11-16-2023 End: 11-16-2023 ambulatory Gia Tammy Facility:[facility] Start: 11-16-2023 End: 11-16-2023 ambulatory DO Fernie Mascorrong Work Phone: [facility] Work Phone: Start: 11-16-2023 End: 11-16-2023 Discharged Recurring DO Fernie Mascorrong Work Phone: [facility]-Infusion Therapy - O/P Work Phone: Start: 11-12-2023 Refill Fernie noguera DO Work Phone: [facility] Start: 08-23-2023 End: 08-23-2023 ambulatory Gia Tammy Other [employer] Other Start: 08-23-2023 Office outpatient vi sit 25 minutes Gia Tammy [facility] Start: 04-26-[address] FERNIE HACKETT Fac ility:[facility] Start: 01-25-2023 End: 01-26-[address] LUISA STERN . [employer] Other Start: 01-25-2023 Office outpatient vi sit 25 minutes Gia Tammy [facility] Start: 01-15-2023 End: 01-16-2023 ambulatory GIA TAMMY Facility:[facility] Start: 12-06-2022 End: 12-06-2022 ambulatory [facility] Start: 11-09-2022 End: 11-10-[address] FERNIE HACKETT Facility:[facility] Start: 10-26-2022 End: 10-27-[address] LUISA STERN . Facility:[facility] Start: 08-02-2022 End: 08-03-[address] LUISA STERN . Facility:[facility] Start: 07-20-2022 End: 07-20-2022 ambulatory Gia Tammy Other [employer] Other Start: 07-20-2022 Office outpatient vi sit 25 minutes Gia Tammy [facility] Start: 07-12-2022 End: 07-13-2022 ambulatory GIA TAMMY Facility:[facility] Start: 05-03-2022 End: 05-03-2022 ambulatory Gia Tammy Other [employer] Other Start: 05-03-2022 Telephone encounter Gia Tammy [facility] Start: 04-25-2022 End: 04-26-[address] LUISA STERN . Facility:[facility] Start: 04-06-2022 End: 04-06-2022 ambulatory Gia Tammy Other [employer] Other Start: 04-06-2022 Office outpatient vi sit 25 minutes Gia Tammy [facility] Start: 03-30-2022 End: 03-31-2022 ambulatory GIA TAMMY Facility:[facility] Start: 03-30-2022 End: 03-31-[address] LUISA STERN . Facility:[facility] Start: 12-27-2021 End: 12-27-2021 ambulatory Gia Tammy Other [employer] Other Start: 12-27-2021 Office outpatient vi sit 15 minutes Gia Tammy [facility] Start: 11-28-2021 End: 11-28-2021 ambulatory Gia Tammy Other [employer] Other Start: 11-28-2021 Telephone encounter Gia Tammy [facility] Start: 11-24-2021 End: 11-24-2021 ambulatory Gia Tammy Other [employer] Other Start: 11-24-2021 Telephone encounter Gia Tammy [facility] Start: 03-30-2021 End: 03-31-2021 ambulatory [facility] Facility:[facility] Procedures Date Procedure Procedure Detail Performing Clinician Start: 05-27-2024 Follow-up visit Follow-up FERNIE HACKETT Start: 05-27-2024 Adult depression screening assessment Pfo 4 Start: 01-08-2024 Adult depression screening assessment Fernie Hackett DO Work Phone: Start: 11-26-2023 Adult depression screening assessment Pfo 1 Start: 11-16-2023 MULTIPLE LABS Not In Sy stem Ref Prov Start: 10-18-2023 Adult depression screening assessment Fernei Hackett DO Work Phone: Plan of Treatment Date Care Activity Detail Author Start: 09-30-2028 DTaP,Tdap and Td Vaccines (2 - Td or Tdap) DTaP,Tdap and Td Vaccines (2 - Td or Tdap) [facility] Start: 11-04-2025 Fall Risk Screening Fall Risk Screening [facility] Start: 10-07-2025 Fall Risk Screening Fall Risk Screening [facility] Start: 09-26-2025 Tobacco Screening Tobacco Screening [facility] Start: 08-27-2025 Adult BMI Screening Adult BMI Screening [facility] Start: 08-27-2025 Fall Risk Screening Fall Risk Screening [facility] Start: 08-20-2025 Adult BMI Screening Adult BMI Screening [facility] Start: 08-13-2025 Adult BMI Screening Adult BMI Screening [facility] Start: 08-06-2025 Tobacco Screening Tobacco Screening [facility] Start: 05-27-2025 Depression Screening Depression Screening [facility] Start: 05-07-2025 Fall Risk Screening Fall Risk Screening [facility] Start: 02-05-2025 Adult BMI Screening Adult BMI Screening [facility] Start: 02-05-2025 Tobacco Screening Tobacco Screening [facility] Start: 01-29-2025 Adult BMI Screening Adult BMI Screening [facility] Start: 01-29-2025 Tobacco Screening Tobacco Screening [facility] Start: 01-22-2025 Adult BMI Screening Adult BMI Screening [facility] Start: 01-22-2025 Tobacco Screening Tobacco Screening [facility] Start: 01-15-2025 Adult BMI Screening Adult BMI Screening [facility] Start: 01-13-2025 End: 01-13-2025 Patient encounter procedure 01/13/2025 12:40 PM EST Of fice Visit [facility] - Family Medicine [address] [place] [address] [facility] Internal [facility] - Family Medicine Start: 01-09-2025 Adult BMI Screening Adult BMI Screening [facility] Start: 01-09-2025 Tobacco Screening Tobacco Screening [facility] Start: 01-08-2025 Depression Screening Depression Screening [facility] Start: 01-08-2025 Fall Risk Screening Fall Risk Screening [facility] Start: 01-08-2025 Medicare Annual Wellness Visit Medicare Annual Wellness Visi t [facility] Start: 01-02-2025 Tobacco Screening Tobacco Screening [facility] Start: 12-26-2024 Adult BMI Screening Adult BMI Screening [facility] Start: 12-26-2024 Tobacco Screening Tobacco Screening [facility] Start: 12-19-2024 Adult BMI Screening Adult BMI Screening [facility] Start: 12-19-2024 Tobacco Screening Tobacco Screening [facility] Start: 12-15-2024 End: 12-15-2024 Patient encounter procedure 12/15/2024 12:30 PM EST Procedure visit [facility]rology [address] [place] [address] Ton Urbano MD [address] [place] [address] [facility] Adult Neurology Start: 12-12-2024 Adult BMI Screening Adult BMI Screening [facility] Start: 12-10-2024 End: 12-10-2024 ambulatory 12/10/2024 9:30 AM EST Infusion Elida L Beka [facility] - Medical Oncology [address] [place] [phone] Elida L Beka [facility] Start: 12-05-2024 Adult BMI Screening Adult BMI Screening [facility] Start: 12-05-2024 Tobacco Screening Tobacco Screening [facility] Start: 12-04-2024 End: 12-04-2024 Patient encounter procedure 12/04/2024 1:30 PM EST Off ice Visit [facility] [address] [place] [address] Fernie Hackett, DO [address] [place] [address] [facility] Internal [facility] - Family Medicine Start: 12-03-2024 End: 12-03-2024 ambulatory 12/03/2024 9:30 AM EST Infusion Elida Ireland [facility] Medical Oncology [address] [place] [phone] Elida Merritt [facility] Medical Oncology Start: 11-28-2024 Adult BMI Screening Adult BMI Screening [facility] Start: 11-28-2024 Tobacco Screening Tobacco Screening [facility] Start: 11-27-2024 End: 11-27-2024 Patient encounter procedure 11/27/2024 1:00 PM EST Off ice Visit [facility] [address] [place] [address] Fernie Hackett, DO [address] [facility], [place] [place] [address] [facility] Internal Medicine - Family Medicine Start: 11-26-2024 Adult BMI Screening Adult BMI Screening [facility] Start: 11-26-2024 Depression Screening Depression Screening [facility] Start: 11-26-2024 Fall Risk Screening Fall Risk Screening [facility] Start: 11-26-2024 Tobacco Screening Tobacco Screening [facility] Start: 11-26-2024 End: 11-26-2024 ambulatory 11/26/2024 9:30 AM EST Infusion Elida Ireland [facility] - Medical Oncology [address] [place] [phone] Elida Ireland [facility]cology Start: 11-21-2024 Adult BMI Screening Adult BMI Screening [facility] Start: 11-20-2024 Bacteria identified in Urine by Culture Urine Culture [facility] Start: 11-20-2024 Urine culture [facility] Start: 11-18-2024 End: 11-18-2024 ambulatory 11/18/2024 11:30 AM EST Infusion Elida Ireland [facility] - Medical Oncology [address] [place] [phone] Elida Ireland [facility] Start: 11-11-2024 End: 11-11-2024 ambulatory 11/11/2024 9:30 AM EST Infusion Elida Ireland [facility] Oncology [address] [place] [phone] Elida Ireland [facility] Start: 11-04-2024 End: 11-04-2024 ambulatory 11/04/2024 9:30 AM EST Infusion Elida Ireland [facility] Oncology [address] [place] [phone] Elida Ireland [facility] Start: 10-29-2024 End: 10-29-2024 ambulatory 10/29/2024 9:30 AM EST Infusion Elida Merritt Beka [facility] - Medical Oncology [address] [place] [address] Elida L Beka [facility] Oncology Start: 10-22-2024 End: 10-22-2024 ambulatory 10/22/2024 9:30 AM EST Infusion Elida Ireland [facility] Oncology [address] [place] [phone] Elida Merritt Beka [facility] Oncology Start: 10-20-2024 Subsequent hospital visit by physician 10/20/2024 11:33 AM EST Hospital Encounter [facility] [address] [place] [address] Hypomagnesemia [facility] Comment on above: Hypomagnesemia Start: 10-18-2024 Adult BMI Screening Adult BMI Screening [facility] Start: 10-18-2024 Depression Screening Depression Screening [facility] Start: 10-18-2024 Tobacco Screening Tobacco Screening [facility] Start: 10-15-2024 End: 10-15-2024 ambulatory 10/15/2024 9:30 AM EST Infusion Elida Merritt Beka [facility] - Medical Oncology [address] [place] [phone] Elida Merritt Beka [facility] Oncology Start: 10-08-2024 End: 10-08-2024 ambulatory 10/08/2024 9:30 AM EST Infusion Elida Merritt Beka [facility] Medical Oncology [address] [place] [phone] Elida L Beka [facility] Oncology Start: 10-07-2024 End: 10-07-2024 ambulatory 10/07/2024 9:30 AM EST Infusion Elida Acen [facility] - Medical Oncology [address] [place] [phone] Elida L Beka [facility] Oncology Start: 10-01-2024 End: 10-01-2024 ambulatory 10/01/2024 9:30 AM EST Infusion Elida L Beka [facility] - Medical Oncology [address] [place] [phone] Elida L Beka [facility] Oncology Start: 09-26-2024 End: 09-26-2024 Admission to same day surgery center 09/26/2024 12:30 PM EST - 09/26/2024 1:30 PM EST Surgery [facility] Endoscopy [address] [place] [phone] Daniel Guerrero, DO [address] [place] [address] ESOPHAGOGASTRODUODENOSCOPY DIAGNOSTIC [65097 (CPT )] [facility] Comment on above: ESOPHAGOGASTRODUODENOSCOPY DIAGNOSTIC [4 3235 (CPT )] Start: 09-26-2024 End: 09-26-2024 Esophagogastroduodenoscopy transoral diagnostic ESOPHAGOGASTRODUODENOSCOPY DIAGNOSTIC ross's esophagus 09/26/2024 12:30 PM EST [facility] Start: 09-26-2024 Subsequent hospital visit by physician 09/26/2024 12:30 PM EST Hospital Encounter [facility] - Endoscopy [address] [place] [address] Daniel Guerrero, DO [address] [place] [address] [facility] Start: 09-25-2024 End: 09-25-2024 ambulatory 09/25/2024 3:40 PM EST Suppo rt Visit [facility] - Pre Admit [address] [place] [address] [facility] - Pre Admit Start: 09-24-2024 End: 09-24-2024 ambulatory 09/24/2024 9:30 AM EST Infusion Elida Merritt Beka [facility] - Medical Oncology [facility] [place] [phone] Elida Ireland [facility] Oncology Start: 09-17-2024 End: 09-17-2024 ambulatory 09/17/2024 9:30 AM EST Infusion Elida Ireland [facility] - Medical Oncology [address] [place] [address] Elida Ireland [facility]cology Start: 09-10-2024 End: 09-10-2024 ambulatory 09/10/2024 9:30 AM EDT Infusion Elida Ireland [facility] - Medical Oncology [address] [place] [address] Elida Ireland [facility] Oncology Start: 09-03-2024 End: 09-03-2024 ambulatory 09/03/2024 9:30 AM EDT Infusion Elida Ireland [facility] Medical Oncology [address] [place] [phone] Elida Ireland [facility] Oncology Start: 08-27-2024 End: 08-27-2024 ambulatory 08/27/2024 9:30 AM EDT Infusion Elida Ireland [facility] Medical Oncology [address] [place] [phone] Elida Ireland [facility]cology Start: 08-20-2024 End: 08-20-2024 ambulatory 08/20/2024 9:30 AM EDT Infusion Elida Ireland [facility] Medical Oncology [address] [place] [phone] Elida Ireland [facility] Start: 07-24-2024 Fall Risk Screening Fall Risk Screening [facility] Start: 07-13-2024 COVID-19 Vaccine () COVID-19 Vaccine () [facility] [employer] [facility] Start: 07-13-2024 COVID-19 Vaccine () COVID-19 Vaccine () [facility] [employer] [facility] Start: 05-27-2024 End: 05-27-2024 Patient encounter procedure 05/27/2024 1:30 PM EDT Off ice Visit [facility] Medicine [address] [place] [address] Fernie Hackett DO [address] [place] [address] [facility] Start: 03-05-2024 End: 03-05-2024 ambulatory 03/05/2024 9:30 AM EDT Infusion Elida Acen [facility] Medical Oncology [address] [place] [phone] Elida L Beka [facility] Oncology Start: 02-27-2024 End: 02-27-2024 ambulatory 02/27/2024 9:30 AM EDT Infusion Elida L Beka [facility] Medical Oncology [address] [place] [phone] Elida L Beka [facility] Oncology Start: 02-25-2024 End: 02-25-2024 Patient encounter procedure 02/25/2024 2:45 PM EDT Off ice Visit [facility] - Family Medicine [address] [place] [address] Fernie Hackett, [address] [place] [address] [facility] Start: 02-20-2024 End: 02-20-2024 ambulatory 02/20/2024 9:30 AM EDT Infusion Elida L Beka [facility] Oncology [address] [place] [phone] Elida L Beka [facility] Oncology Start: 02-13-2024 End: 02-13-2024 ambulatory 02/13/2024 9:30 AM EDT Infusion Elida L Beka [facility] Oncology [address] [place] [phone] Elida Ireland [facility] Start: 02-06-2024 End: 02-06-2024 ambulatory 02/06/2024 9:30 AM EDT Infusion Elida Ireland [facility] Medical Oncology [address] [place] [address] Elida Ireland [facility]cology Start: 01-30-2024 End: 01-30-2024 ambulatory 01/30/2024 9:30 AM EDT Infusion Elida Ireland [facility] Oncology [address] [place] [phone] Elida Ireland [facility] Start: 01-23-2024 End: 01-23-2024 ambulatory 01/23/2024 9:30 AM EDT Infusion Elida Ireland [facility] Medical Oncology [address] [place] [phone] Elida Ireland [facility] Start: 01-16-2024 End: 01-16-2024 ambulatory 01/16/2024 9:30 AM EST Infusion Elida Ireland [facility] Oncology [address] [place] [phone] Elida Ireland [facility] Start: 01-09-2024 End: 01-09-2024 ambulatory 01/09/2024 9:30 AM EST Infusion Elida Ireland [facility] Oncology [address] [place] [phone] Elida Ireland [facility] Oncology Start: 01-08-2024 End: 01-08-2024 Patient encounter procedure 01/08/2024 1:00 PM EST Off ice Visit [facility] Medicine [address] [place] [address] [facility] Start: 01-02-2024 End: 01-02-2024 ambulatory 01/02/2024 9:30 AM EST Infusion Elida Ireland [facility] Oncology [address] [place] [phone] Elida Ireland [facility] Start: 12-26-2023 End: 12-26-2023 ambulatory 12/26/2023 9:30 AM EST Infusion Elida Ireland [facility] Medical Oncology [address] [place] [phone] Elida Ireland [facility] Start: 12-19-2023 End: 12-19-2023 ambulatory 12/19/2023 9:30 AM EST Infusion Elida Ireland [facility] Oncology [address] [place] [phone] Elida Ireland [facility] Start: 12-12-2023 Administration of varicella zoster vaccine Zoster (Shingles) Vaccine (1 of 2) [facility] Comment on above: Postponed from 03/12/2015 (Patient Refus ed) Start: 12-12-2023 Medicare Annual Wellness Visit Medicare Annual Wellness Visi t [facility] Start: 12-12-2023 End: 12-12-2023 ambulatory 12/12/2023 9:30 AM EST Infusion Elida Ireland [facility] Medical Oncology [address] [place] [phone] Elida Ireland [facility] Start: 12-05-2023 End: 12-05-2023 ambulatory 12/05/2023 9:30 AM EST Infusion Elida Ireland [facility] Medical Oncology [address] [place] [phone] Elida Ireland [facility]cology Start: 11-28-2023 End: 11-28-2023 ambulatory 11/28/2023 9:30 AM EST Infusion Elida Ireland [facility] Medical Oncology [address] [place] [phone] Elida Ireland [facility]cology Start: 11-26-2023 End: 11-26-2023 Patient encounter procedure 11/26/2023 1:30 PM EST Off ice Visit [facility] - Family Medicine [address] [place] [address] Fernie Hackett, DO [address] [place] [facility], [place] [address] [facility] Internal Medicine - Family Medicine Start: 11-21-2023 End: 11-21-2023 ambulatory 11/21/2023 9:30 AM EST Infusion Elida Ireland [facility] Medical Oncology [address] [place] [phone] Elida Ireland [facility] Start: 07-13-2023 COVID-19 Vaccine ( season) COVID-19 Vaccine () [facility] Start: 03-12-2015 Administration of varicella zoster vaccine Zoster (Shingles) Vaccine (1 of 2) [facility] Start: 1958 Adult BMI Follow Up Plan Adult BMI Follow Up Plan [facility] End: 11-21-2024 Comprehensive metabolic 2000 panel - Serum or Plasma Comprehensive metabolic panel Lab Routine Essential hypertension 1 Occurrences starting 11/21/2023 until 11/21/2024 [facility] Work Phone: Comment on above: 1 Occurrences starting 11/21/2023 until 11/21/2024 End: 09-04-2025 EMG EMG Neurology Routine Paresthesia of right lower extremity 1 Occurrences starting 09/04/2024 until 09/04/2025 [facility]: Comment on above: 1 Occurrences starting 09/04/2024 until 09/04/2025 End: 09-04-2025 Esophagogastroduodenoscopy EGD GI Routine Ross's esophagus with dysplasia 1 Occurrences starting 09/04/2024 until 09/04/2025 [facility] Comment on above: 1 Occurrences starting 09/04/2024 until 09/04/2025 Esophagogastroduoden oscopy transoral diagnostic ESOPHAGOGASTRODUODENOSCOPY DIAGNOSTIC 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 [facility] End: 11-21-2024 Hemoglobin A1c/Hemoglobin.total in Blood Hemoglobin A1c Lab Routine Type 2 diabetes mellitus with stage 3b chronic kidney disease, with long-term current use of insulin [place] 1 Occurrences starting 11/21/2023 until 11/21/2024 [facility] Comment on above: 1 Occurrences starting 11/21/2023 until 11/21/2024 End: 11-21-2024 Lipid panel Lipid panel Lab Routine Mixe d hyperlipidemia 1 Occurrences starting 11/21/2023 until 11/21/2024 [facility] Comment on above: 1 Occurrences starting 11/21/2023 until 11/21/2024 End: 11-18-2025 Magnesium [Mass/volume] in Serum or Plasma Magnesium Lab Routine Hypomagnesemia weekly for 52 Occurrences starting 11/18/2024 until 11/18/2025 [employer] Work Phone: Comment on above: weekly for 52 Occurrences starting 11/18 until 11/18/2025 End: 11-21-2024 Microalbumin - Albumin: Creatinine Urine Ratio Microalbumin - Albumin: Creatinine Urine Ratio Lab Routine Type 2 diabetes mellitus with stage 3b chronic kidney disease, with long-term current use of insulin ([facility] 1 Occurrences starting 11/21/2023 until 11/21/2024 [facility] Comment on above: 1 Occurrences starting 11/21/2023 until 11/21/2024 End: 01-16-2025 Potassium [Moles/volume] in Serum or Plasma Potassium Lab Routine 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 ([facility] 1 Occurrences starting 01/17/2024 until 01/16/2025 [employer] Work Phone: Comment on above: 1 Occurrences starting 01/17/2024 until 01/16/2025 Renal function 2000 panel - Serum or Plasma [facility] Immunizations Immunization Date Immunization Notes Care Provider Fa cili 08-31-2021 Influenza, High-dose , Quadrivalent Fernie Furlong DO [facility] 02-01-2021 COVID-19, mRNA, LNP- S, PF, 30mcg/0.3mL Dose Fernie Furlong DO Work Phone: [facility] 01-10-2021 COVID-19, mRNA, LNP- S, PF, 30mcg/0.3mL Dose Fernie Furlong DO Work Phone: [facility] 07-29-2020 influenza, high dose seasonal, preservative-free Fernie Furlong DO Work Phone: [facility] 09-03-2019 influenza, high dose seasonal, preservative-free Fernie Furlong DO Work Phone: [facility] 09-30-2018 tetanus toxoid, redu kiran diphtheria toxoid, and acellular pertussis vaccine, adsorbed Fernie Furlong DO Work Phone: [facility] 09-19-2018 influenza, high dose seasonal, preservative-free Fernie Furlong DO Work Phone: [facility] 09-03-2017 influenza virus vacc ine, unspecified formulation Fernie Furlong DO Work Phone: [facility] 07-27-2015 influenza, seasonal, injectable, preservative free Fernie Furlong DO Work Phone: [facility] 07-27-2015 seasonal influenza, intradermal, preservative free Fernie Furlong DO Work Phone: [facility] 01-15-2015 zoster vaccine, live Fernie Furlong DO Work Phone: [facility] 01-15-2015 zoster vaccine, unspecified formulation Fernie Furlong DO Work Phone: [facility] 07-16-2014 influenza, seasonal, injectable Fernie Furlong DO Work Phone: [facility] 10-20-2013 pneumococcal conjuga te vaccine, 13 valent Fernie Furlong DO Work Phone: [facility] 08-30-2011 tetanus and diphther ia toxoids, not adsorbed, for adult use Fernie Furlong DO Work Phone: [facility] 08-20-2008 pneumococcal polysaccharide vaccine, 23 valchrista Hackett DO Work Phone: [facility] [employer] Payers Date Payer Category Payer Self-pay [id number] 11-12-2022 Unknown 11-12-2015 Managed Care Other (unspecified) [facility] [id number] 11-12-2015 Private Health Insurance [facility] A[employer] SUPPLEMENT [id number] 11/12/2015-Present [phone] [address] [place] [address] [id number] 09-12-2007 Medicare [id number] 11-12-1959 Medicare [id number] 11-12-1959 Unknown [id number] 1942 Unknown [id number] 2.16.840.1.893135.3.579.2 .647 1942 Unknown [id number] 2.16.840.1.218535.3.579.2 .593 1942 Unknown [id number] 2.16.840.1.284206.3.579.2 .593 1942 Unknown [id number] 2.16.840.1.641635.3.579.2 .593 1942 Unknown [id number] 2.16.840.1.222417.3.579.2 .593 1942 Unknown [id number] 2.16.840.1.780716.3.579.2 .593 1942 Unknown [id number] 2.16.840.1.655707.3.579.2 .593 1942 Unknown [id number] 2.16.840.1.490251.3.579.2 .593 1942 Unknown [id number] 2.16.840.1.461408.3.579.2 .593 1942 Unknown [id number] 2.16.840.1.070914.3.579.2 .593 1942 Unknown [id number] 2.16.840.1.257070.3.579.2 .593 1942 Unknown [id number] 2.16.840.1.117259.3.579.2 .593 1942 Unknown [id number] 2.16.840.1.560730.3.579.2 .1286 1942 Unknown [id number] 2.16.840.1.047070.3.579.2 .1286 1942 Unknown [id number] 2.16.840.1.565625.3.579.2 .1286 1942 Unknown [id number] 2.16.840.1.201032.3.579.2 .1286 1942 Unknown [id number] 2.16.840.1.873014.3.579.2 .1286 1942 Unknown [id number] 2.16.840.1.873261.3.579.2 .1286 1942 Unknown [id number] 2.16.840.1.178923.3.579.2 .1286 1942 Unknown [id number] 2.16.840.1.459651.3.579.2 .196 1942 Unknown [id number] 2.16.840.1.798669.3.579.2 .1942 Unknown [id number] 2.16.840.1.791392.3.579.2 .1942 Unknown [id number] 2.16.840.1.891186.3.579.2 .196 1942 Unknown [id number] 2.16.840.1.283842.3.579.2 .1286 1942 Unknown [id number] 2.16.840.1.151295.3.579.2 .1285 1942 Unknown [id number] 2.16.840.1.122721.3.579.2 .1285 1942 Unknown [id number] 2.16840.1.028773.3.579.2 .1285 1942 Unknown [id number] 2.16.840.1.134437.3.579.2 .1285 1942 Unknown [id number] 2.16.840.1.498850.3.579.2 .1285 1942 Unknown [id number] 2.16.840.1.948083.3.579.2 .1285 1942 Unknown [id number] 2.16.840.1.452120.3.579.2 .1285 1942 Unknown [id number] 2.16.840.1.342909.3.579.2 .1285 1942 Unknown [id number] 2.16.840.1.542910.3.579.2 .1285 1942 Unknown [id number] 2.16.840.1.917862.3.579.2 .1285 1942 Unknown [id number] 2.16.840.1.531663.3.579.2 .128 1942 Unknown [id number] 2.16.840.1.617519.3.579.2 .1285 1942 Unknown [id number] 2.16.840.1.278494.3.579.2 .1285 1942 Unknown [id number] 2.16840.1.695219.3.579.2 .1285 1942 Unknown [id number] 2.16840.1.978772.3.579.2 .1285 1942 Unknown [id number] 2.840.1.923642.3.579.2 .1285 1942 Unknown [id number] 2.840.1.024475.3.579.2 .1285 1942 Unknown [id number] 2.840.1.548899.3.579.2 .1285 1942 Unknown [id number] 2.840.1.102676.3.579.2 .1285 1942 Unknown [id number] 2.840.1.577564.3.579.2 .1285 1942 Unknown [id number] 2.840.1.088744.3.579.2 .1285 1942 Unknown [id number] 2.840.1.776527.3.579.2 .1285 1942 Unknown [id number] 2.840.1.307293.3.579.2 .1285 1942 Unknown [id number] 2.16840.1.664175.3.579.2 .1285 1942 Unknown [id number] 2.16840.1.939734.3.579.2 .1285 1942 Unknown [id number] 2.16840.1.361114.3.579.2 .1285 1942 Unknown [id number] 2.16.840.1.610912.3.579.2 .1285 1942 Unknown [id number] 2.16.840.1.091051.3.579.2 .1285 1942 Unknown [id number] 2.16.840.1.103177.3.579.2 .1285 1942 Unknown [id number] 2.16.840.1.990535.3.579.2 .1285 1942 Unknown [id number] 2.16.840.1.835657.3.579.2 .1285 1942 Unknown [id number] 2.16.840.1.217275.3.579.2 .1285 1942 Unknown [id number] 2.840.1.319512.3.579.2 .1285 1942 Unknown [id number] 2.840.1.181650.3.579.2 .1285 1942 Unknown [id number] 2.16840.1.978430.3.579.2 .1285 1942 Unknown [id number] 2.16.840.1.619886.3.579.2 .1285 1942 Unknown [id number] 2.840.1.235138.3.579.2 .1285 1942 Unknown [id number] 2.16840.1.492915.3.579.2 .1285 1942 Unknown [id number] 2.16.840.1.210229.3.579.2 .1285 1942 Unknown [id number] 2.16.840.1.683545.3.579.2 .1285 1942 Unknown [id number] 2.16.840.1.600221.3.579.2 .1285 1942 Unknown [id number] 2.16.840.1.080480.3.579.2 .1285 1942 Unknown [id number] 2.16.840.1.900551.3.579.2 .1285 1942 Unknown [id number] 2.16.840.1.294451.3.579.2 .1285 1942 Unknown [id number] 2.16.840.1.116494.3.579.2 .1285 1942 Unknown [id number] 2.16.840.1.109678.3.579.2 .1285 1942 Unknown [id number] 2.16.840.1.914212.3.579.2 .1285 1942 Unknown [id number] 2.840.1.016541.3.579.2 .1285 1942 Unknown [id number] 2.16.840.1.822423.3.579.2 .1285 1942 Unknown [id number] 2..840.1.741883.3.579.2 .1285 1942 Unknown [id number] 2.16.840.1.026053.3.579.2 .1285 1942 Unknown [id number] 2.840.1.194654.3.579.2 .1285 1942 Unknown [id number] 2.16.840.1.641540.3.579.2 .1285 1942 Unknown [id number] 2.16.840.1.204036.3.579.2 .1285 1942 Unknown [id number] 2.16.840.1.855910.3.579.2 .1285 1942 Unknown [id number] 2.16.840.1.979485.3.579.2 .1285 1942 Unknown [id number] 2.16.840.1.290438.3.579.2 .1286 1942 Unknown [id number] 2.16.840.1.848199.3.579.2 .1285 1942 Unknown [id number] 2.16.840.1.505798.3.579.2 .1285 1942 Unknown [id number] 2.16.840.1.526164.3.579.2 .1285 1942 Unknown [id number] 2.16.840.1.631939.3.579.2 .1285 1942 Unknown [id number] 2.16.840.1.284702.3.579.2 .1285 1942 Unknown [id number] 2.16.840.1.394152.3.579.2 .1285 1942 Unknown [id number] 2.16.840.1.396604.3.579.2 .1285 1942 Unknown [id number] 2.16.840.1.032600.3.579.2 .1285 1942 Unknown [id number] 2.16.840.1.418348.3.579.2 .1285 1942 Unknown [id number] 2.16.840.1.821463.3.579.2 .1285 1942 Unknown [id number] 2.16.840.1.417695.3.579.2 .1285 1942 Unknown [id number] 2.16.840.1.278212.3.579.2 .1285 1942 Unknown [id number] 2.16.840.1.521295.3.579.2 .1285 1942 Unknown [id number] 2.16.840.1.400505.3.579.2 .1285 1942 Unknown [id number] 2.16.840.1.135662.3.579.2 .128 1942 Unknown [id number] 2.16.840.1.369160.3.579.2 .1285 1942 Unknown [id number] 2.16.840.1.706285.3.579.2 .1285 1942 Unknown [id number] 2.16.840.1.028566.3.579.2 .1285 1942 Unknown [id number] 2.16.840.1.142269.3.579.2 .1285 1942 Unknown [id number] 2.16.840.1.247159.3.579.2 .1285 1942 Unknown [id number] 2.16.840.1.462812.3.579.2 .1285 1942 Unknown [id number] 2.16.840.1.917490.3.579.2 .1285 1942 Unknown [id number] 2.16.840.1.699719.3.579.2 .1285 1942 Unknown [id number] 2.16.840.1.454960.3.579.2 .1285 1942 Unknown [id number] 2.16.840.1.920028.3.579.2 .1285 1942 Unknown [id number] 2.16.840.1.531463.3.579.2 .1285 1942 Unknown [id number] 2.16.840.1.112361.3.579.2 .1285 1942 Unknown [id number] 2.16.840.1.465251.3.579.2 .1285 1942 Unknown [id number] 2.16.840.1.240865.3.579.2 .1285 1942 Unknown [id number] 2.16.840.1.211741.3.579.2 .1285 1942 Unknown [id number] 2.16.840.1.533463.3.579.2 .1286 1942 Unknown [id number] 2.16.840.1.820322.3.579.2 .1286 1942 Unknown [id number] 2.16.840.1.358293.3.579.2 .1286 1942 Unknown [id number] 2.16.840.1.464738.3.579.2 .1286 1942 Unknown [id number] 2.16.840.1.021773.3.579.2 .1286 1942 Unknown [id number] 2.16.840.1.794612.3.579.2 .1286 Private Health Insurance [facility] [id number] Unknown [id number] 2.16.840.1.951460.3.579.2 .531 Social History Date Type Detail Facility Unknown if ever smoked [facility] Other Start: 10-18-2023 End: 01-08-2024 Sex Assigned At [facility] Start: 05-04-2017 End: 05-01-2024 Tobacco smoking status NHIS Never smoked tobacco [facility] Start: 05-04-2017 Tobacco use and exposure Smokeless tobacco non-user [facility] Start: 10-18-2023 End: 09-10-2024 Alcohol intake Current drinker of alcohol (finding) [facility] Start: 10-18-2023 End: 01-08-2024 Alcohol intake [facility] [employer] Adolescent depressio n screening assessment 0 [facility] Start: 1940 Sex Assigned At Not on file P [facility] Start: 1940 Sex Assigned At Female F [facility] Has the electric, ga s, oil, or water company threatened to shut off services in your home in past 12Mo No [facility] Are you now , , , , never or living with a partner? [facility] How often to you hav e a drink containing alcohol? Never [facility] Do you feel stress - tense, restless, nervous, or anxious, or unable to sleep at night because your mind is troubled all the time - these days [OSQ] Not at all [facility] Start: 06-17-2015 End: 11-21-2024 Sex Female (finding) [facility] Start: 09-26-2024 End: 09-30-2024 Alcoholic beverage intake Ex-drinker (finding) [facility] Medical Equipment Procedure Code Equipment Code Equipment Origin al Text Equipment Identifier Dates 1 strip by other route in the morning and 1 strip before bedtime. [id number] Start: 08-30-2023 End: 11-18-2024 1 Lancet. by miscellaneous route in the morning and 1 Lancet. before bedtime. [id number] Start: 08-30-2023 USE 1 NEEDLE THR EE TIMES A DAY [id number] Start: 07-23-2023 USE 1 NEEDLE THR EE TIMES A DAY [id number] Start: 07-17-2024 1 strip by other route in the morning and 1 strip before bedtime. [id number] Start: 11-18-2024 Clinical Notes 12-27-2021 to 11-24-2024 Clari Costa - 11/24/2024 8:41 AM ESTTelephone Encounter - Elle Garcia - 11/24/2024 8:41 AM ESTTelephone Encounter - Fernie Hackett DO - 11/24/2024 8:41 AM EST Note Date & Type Note Facility 11-24-2024 History of Presen t illness Narrative Patient's spouse called [facility] nurse this morning with concerns about . [...] possible. Please advise. documented in this encounter [facility] 11-24-2024 Miscellaneous Notes Formattin g of this note is different from the original. Patient's spouse called [facility] nurse this morning with concerns about . [...] be septic Notified documented in this encounter [facility] 11-24-2024 Telephone encount er Note Patient's [...] today by PCP if possible. Please advise. [facility] 11-24-2024 Telephone encount er Note She has altered mental status she should go to the emergency room. She could be septic [facility] 11-24-2024 Telephone encount er Note Notified [facility] 11-17-2024 History of Presen t illness Narrative Diabetic Supplies: After numerous attempts by and JARON we have been unable to get in touch with [facility] regarding patient diabetes supplies. Patient is currently out of test strips and would like order sent to new DME supplier. Could you please fax order to [facility] for [employer] meter and strips. Fax number: [phone]. [facility] Primary Care Chronic Care Nurse Animation Artist [phone] documented in this encounter [facility] 11-17-2024 Miscellaneous Notes Formattin g of this note is different from the original. Diabetic Supplies: After numerous attempts by and JARON we have been unable to get in touch with [facility] regarding patient diabetes supplies. Patient is currently out of test strips and would like order sent to new DME supplier. Could you please fax order to [facility] for TruMetrix meter and strips. Fax number: [phone]. [facility] Chronic Care Nurse Animation Artist [phone] Please fax to [facility]. Prescriptions were printed documented in this encounter [facility] 11-17-2024 Telephone encount er Note Diabetic Supplies: After numerous attempts by and JARON we have been unable to get in touch with [facility] regarding patient diabetes supplies. Patient is currently out of test strips and would like order sent to new DME supplier. Could you please fax order to [facility] for [employer]Met[employer] meter and strips. Fax number: [phone]. [facility] Primary [facility] Chronic Care Nurse Animation Artist [phone] [facility] 11-17-2024 Telephone encount er Note Please fax to [facility]. Prescriptions were printed [facility] 11-04-2024 History of Presen t illness Narrative Patient is here for 2g IV magnesium as scheduled. Mg level 1.7. PIV initiated, blood return noted, flushes with ease. NS started at KVO. Magnesium infused over 2 hours. Line flushed. Pt tolerated well. PIV dc'd, pressure dressing applied. Pt dc'd in stable ambulatory condition with spouse. documented in this encounter [facility] 10-20-2024 History of Presen t illness Narrative Patient mag level is 1.9, will not need magnesium infusion this week. Patient made aware and will continue on with next week's lab draw. documented in this encounter [facility] 10-07-2024 Miscellaneous Notes Formattin g of this note might be different from the original. Call patient and see if she requested this. It was stopped in the summertime documented in this encounter [facility] 10-07-2024 Telephone encount er Note Call patient and see if she requested this. It was stopped in the summertime [facility] 10-07-2024 History of Presen t illness Narrative Patient is here for 2g IV magnesium as scheduled. Mg level 1.7. PIV initiated, blood return noted, flushes with ease. NS started at KVO. Magnesium infused over 2 hours. Line flushed. Pt tolerated well. PIV dc'd, pressure dressing applied. Pt dc'd in stable ambulatory condition with spouse. documented in this encounter [facility] 10-01-2024 History of Presen t illness [...] updated treatment calendar. documented in this encounter [facility] 09-10-2024 Miscellaneous Notes Formattin g of this note might be different from the original. NEW EMG/NCV ORDER First attempt- Left Voicemail Dx: Paresthesia of right lower extremity [R20.2]/ Referred by: Fernie Hackett DO Referred to: Please schedule patient in the next available appointment with provider. Patient returned call and patient was scheduled for next available EMG in [place]. Patient was placed on waitlist. Appointment: 12/15/2024 at 12:30pm with Dr. Urbano documented in this encounter [facility] 09-10-2024 Telephone encount er Note NEW EMG/NCV ORDER First attempt- Left Voicemail Dx: Paresthesia of right lower extremity [R20.2]/ Referred by: Fernie Hackett DO Referred to: Please schedule patient in the next available appointment with provider. [facility] 09-10-2024 Telephone encount er Note Patient returned call and patient was scheduled for next available EMG in [place]. Patient was placed on waitlist. Appointment: 12/15/2024 at 12:30pm with Dr. Urbano [facility] 09-10-2024 History of Presen t illness Narrative Pt here for 2g IV magnesium. Mg level 1.7. PIV initiated to RFA. Brisk blood return verified, and flushes with ease. Magnesium infused over 2 hours without incident. Pt tolerated well. Flushed with saline and PIV dc'd. Pt dc'd in stable ambulatory condition. documented in this encounter [facility] 09-01-2024 History of Presen t illness Narrative Pt magnesium level 1.8. called to notify patient to see if shed like to notify dr medina office to see if she should still get mg infusion since she's WNL. Pt requests to take the week off and recheck mg level in one week. documented in this encounter [facility] 08-27-2024 History of Presen t illness Narrative Patient is here for 2g IV magnesium as scheduled. Mg level 1.6. PIV initiated, blood return noted, flushes with ease. NS started at KVO. Magnesium infused over 2 hours. Line flushed. Pt tolerated well. PIV dc'd, pressure dressing applied. Pt dc'd in stable ambulatory condition with spouse. documented in this encounter [facility] 08-22-2024 History of Presen t illness Narrative When was the last Refill? 05/27/24 Is this medication Historical? [place] of preferred Pharmacy? [facility] When was the last OV with provider? 05/27/24 When is the next scheduled visit? 11/27/24 documented in this encounter [facility] 08-20-2024 History of Presen t illness Narrative Pt here for 2g IV magnesium. Mg level 1.6. PIV initiated to RFA. Brisk blood return noted, flushes with ease. Magnesium infused over 2 hours. Line flushed. Pt tolerated well. PIV dc'd. Pressure dressing applied. Dc'd in stable ambulatory condition. documented in this encounter [facility] 08-13-2024 History of Presen t illness Narrative Pt here for 2g IV magnesium per pt reqeust. Mg level 1.6. PIV initiated to LFA. Brisk blood return noted, flushes with ease. NS started at KVO. Magnesium infused over 2 hours. Pt tolerated well. PIV dc'd. Pressure dressing applied. Dc'd in stable ambulatory condition. documented in this encounter [facility] 02-13-2024 History of Presen t illness [...] stable ambulatory condition. documented in this encounter [facility] 02-06-2024 History of Presen t illness Narrative Pt here for 2g IV magnesium as scheduled for mg level 1.8. Tolerating infusions well. PIV initiated to RFA. Brisk blood return noted, flushes with ease. NS started at KVO. Magnesium infused over 2 hours. Pt tolerated well. PIV dc'd, pressure dressing applied. Pt dc'd in stable ambulatory condition. documented in this encounter [facility] 01-30-2024 History of Presen t illness Narrative Patient is here for 2g IV magnesium as scheduled. Mg level 1.8. PIV initiated, blood return noted, flushes with ease. NS started at KVO. Magnesium infused over 2 hours. Line flushed. Pt tolerated well. PIV dc'd, pressure dressing applied. Pt dc'd in stable ambulatory condition with spouse. documented in this encounter [facility] 01-23-2024 History of Presen t illness Narrative Patient is here for 2g IV magnesium as scheduled. Mg level 1.7. PIV initiated on second attempt, blood return noted, flushes with ease. NS started at KVO. Magnesium infused over 2 hours. Line flushed. Pt tolerated well. PIV dc'd, pressure dressing applied. Pt dc'd in stable ambulatory condition with spouse. documented in this encounter [facility] 01-16-2024 History of Presen t illness [...] of upcoming appointments. documented in this encounter [facility] 01-09-2024 History of Presen t illness Narrative Pt here for 2g IV magnesium for mg level of 1.7. Tolerating infusions well. PIV initiated to RFA. Brisk blood return, flushes with ease. NS started at KVO. Magnesium infused over 2 hours. Pt tolerated well. PIV flushed and dc'd. Pressure dressing applied. Dc'd in stable condition. documented in this encounter [facility] 01-08-2024 History of Presen t illness [...] Do you have a durable power of litigation attorney associate?: Yes Cognitive Screening Do you have trouble [...] year (around 01/08/2025). documented in this encounter [facility] 01-02-2024 History of Presen t illness Narrative Patient is here for 2g IV magnesium as scheduled. Mg level 1.7. PIV initiated on third attempt, blood return noted, flushes with ease. NS started at KVO. Magnesium infused over 2 hours. Line flushed. Pt tolerated well. PIV dc'd, pressure dressing applied. Pt dc'd in stable ambulatory condition with spouse. documented in this encounter [facility] 12-26-2023 History of Presen t illness Narrative Pt here for 2g IV magnesium infusion as scheduled. Mg level 1.6. Tolerating infusions well. PIV initiated to RFA. Brisk blood return noted, flushes with ease. NS started at KVO. Magnesium infused over 2 hours. Pt tolerated well. Line flushed. PIV dc'd. Pressure dressing applied. Pt v/u of future appointments. documented in this encounter [facility] 12-19-2023 History of Presen t illness Narrative Pt here for 4g IV magnesium infusion as scheduled. Mg level 1.5. Tolerating infusions well. PIV initiated to LFA. Brisk blood return noted, flushes with ease. NS started at KVO. Magnesium infused over 4 hours. Pt tolerated well. Line flushed. PIV dc'd. Pressure dressing applied. Pt v/u of future appointments. documented in this encounter [facility] 12-12-2023 History of Presen t illness Narrative Patient is here for 2g IV magnesium as scheduled. Mg level 1.7. PIV initiated blood return noted, flushes with ease. NS started at KVO. Magnesium infused over 2 hours. Line flushed. Pt tolerated well. PIV dc'd, pressure dressing applied. Pt dc'd in stable ambulatory condition with spouse. documented in this encounter [facility] 12-04-2023 Miscellaneous Notes Formattin g of this note might be different from the original. Patient called and these are both covered by insurance and she would like these sent in instead of what the alternative was documented in this encounter [facility] 12-04-2023 Telephone encount er Note Patient called and these are both covered by insurance and she would like these sent in instead of what the alternative was [facility] 11-28-2023 History of Presen t illness Narrative Patient here for 2g IV magnesium as scheduled. Mg level 1.8. PIV initiated to LFA Brisk blood return noted, flushes with ease. NS started at KVO. Magnesium infused over 2 hours. Line flushed. Pt tolerated well. PIV dc'd, pressure dressing applied. Pt dc'd in stable ambulatory condition with spouse. documented in this encounter [facility] 11-21-2023 History of Presen t illness [...] Treatment calendar provided. documented in this encounter [facility] 11-19-2023 Note Continue statin [facility] 11-19-2023 Note Hypertension is elev ated in office today was 192/86 and repeat b/p improved 158/80 Typically b/p is 122-150/60-80 at home and at other physician offices. Continue all meds ramipril, coreg [facility] 11-19-2023 Note Coronary artery dise ase is stable Continue GDMT- ASA, lipitor, coreg continue risk factor modifications- heart healthy diet, regular exercise as tolerated and continue all medications. [facility] 11-19-2023 Note Patient here for 1 y ear follow up CAD, hypertension, and venous insufficiency. Had labs a week or so ago for rehab liaison and says she's in the process of [...] other systems reviewed and are negative. [facility] 11-19-2023 Note [facility] CARDIOLOGY PROGR ESS NOTE [...] labs a week or so ago for rehab liaison and says she's in the process of [...] BUN 64, (more content not included)... [facility] 08-23-2023 Evaluation note Encounter Date Diagnosis Assessment [...] magnesium diet and provide information about it. [facility] 03-16-2023 NoteCONSULTATION CONSULTATION DATE: 01/25/2023 HISTORY: [...] and to talk with Dr. Munoz, their rehab liaison, to confirm that this was acceptable, considering her stage 3 kidney disease. Other than that, we will see her in three months' time at the clinic, unless otherwise indicated. Patient and agree with this plan.[facility] 01-25-2023 Evaluation note* Encounter Date Diagnosis Assessment [...] magnesium diet and provide information about it. [facility] Chief Complaint: Patient being seen via telephone call for 6 mo follow up hypertension, CAD, and CKD. She denies chest pain and increased SOB with exertion. C/o increased LE edema but denies weight gain. Says her rehab liaison Dr. Munoz advised her to call him [...] enzyme inhibitor/receptor micki. 4. Follow up with [facility] Cardiology in the next 2 to [...] creatinine and electrolytes; she follows with her rehab liaison Leg swelling is likely related to venous [...] was initiated by the patient and conducted auk-bofe-wa-face with use of audio-only real time telephone communication between patient and provider for a virtual visit. Verbal consent to provide and bill for this service was obtained on 12/06/2022. No signature was obtained due to the COVID-19 pandemic. Moe Parham MD, MPH, [facility], [facility], [facility] Interventional Cardiology Pager Email: [email or web address]12-15-2022 NoteCONSULTATION CONSULTATION DATE: 10/26/2022 HISTORY OF PRESENT ILLNESS: This is a very pleasant, 82-year-old female who presents with her for a three month follow up. Today, she reports 0/10 pain and is overall doing well. At her last appointment on 08/02/2022, we had switched her medications from Paron to tramadol extended release 100 mg per day, which she feels is helping very much. It is lasting for her better than the Paron. She is also on Lyrica 75 mg [...] indicated, and patient agrees with this plan.[id number] NoteCONSULTATION CONSULTATION DATE: 08/02/2022 HISTORY OF PRESENT ILLNESS: This is a pleasant, 81-year-old female, accompanied by her , returning to the clinic for a three month follow up for chronic lower back pain. She was last seen on 04/25/[address] Stern which, at that time, her Paron was decreased to 5/325 daily p.r.n., which [...] increased to 100 mg extended release daily. Paron will be discontinued. Education was given regarding use of the menthol heat rub with Voltaren gel and heat application to her back. Vitamin and nutrition importance was discussed. Patient will be seen back in the clinic in three months' time, unless otherwise indicated, and patient agrees to this.[id number] Evaluation note* Encounter Date Diagnosis Assessment Notes [...] any recent gout flare. She takes allopurinol. [facility] 06-22-2022 Evaluation note* Encounter Date Diagnosis Assessment Notes Treatment Notes Treatment Clinical Notes Apr, Hypertensive chronic kidney disease with stage 1 through stage 4 chronic kidney disease, or unspecified chronic kidney disease (ICD-10 - I12.9) [facility] 06-14-2022 NoteCONSULTATION CONSULTATION DATE: 04/25/2022 CHIEF [...] 4/10. She is managing the pain with Paron 5/325 one table daily and tramadol 50 [...] the patient's pain medication which would be Paron 5/325 one tablet daily and tramadol 50 [...] she need us. CC: Fernie Hackett D.O. [facility] Signed and Approved by: DR LUISA STERN . 05/02/2022 08:52:00[facility]05-26-2022 Evaluation note* Encounter Date Diagnosis [...] any recent gout flare. She takes allopurinol. [employer] Other 05-19-2022 NoteCONSULTATION CONSULTATION DATE: 03/30/2022 This [...] She was given a 14-day prescription of Paron 5/325 b.i.d. to help with the acuity of her post-procedure pain. Today she reports the Paron is gone and she is back on [...] and rather we will maintain her on Paron 5/325 b.i.d. which proved to be the [...] and agree and would like to proceed. [facility] Signed and Approved by: JONNY CAMPUZANO . 04/03/2022 15:07:00[facility]02-15-2022 Evaluation note* Encounter Date Diagnosis [...] any recent gout flare. She takes allopurinol. [place] Other Evaluation noteNo InformationNort [facility] Other Evaluation note* Diagnosis Hypomagnesemia- Primary Disorders of magnesium metabolism documented in this encounter [facility] SystemEvaluation note* Diagnosis Hypomagnesemia- Primary Disorders of magnesium metabolism documented in this encounter [facility] SystemEvaluation note* Diagnosis Mixed hyperlipidemia- Primary Type 2 diabetes mellitus with stage 3b chronic kidney disease, with long-term current use of insulin ([facility]) Essential hypertension Unspecified essential hypertension [facility] assessment information available [facility] Work Phone: Evaluation note* Diagnosis Hypomagnesemia- Primary Disorders of magnesium metabolism [facility]* Diagnosis Hypomagnesemia- Primary Disorders of magnesium metabolism [facility]* Diagnosis Hypomagnesemia- Primary Disorders of magnesium metabolism [facility]* Diagnosis Hypomagnesemia- Primary Disorders of magnesium metabolism [facility]* Diagnosis Medicare annual wellness visit, subsequent- Primary Screening for depression documented in this [facility]* Diagnosis 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 ([facility])- Primary [facility] in [facility]* Diagnosis Hypomagnesemia- Primary Disorders of magnesium metabolism documented in [facility]* Diagnosis Onset Date Resolution Status Anemia of renal disease acut e CKD (chronic kidney disease) stage 3, GFR 30-59 ml/min acute [id number] acute Hyperuricemia acute Hypomagnesemia acute Secondary hyperparathyroidism acute Type 2 diabetes mellitus wit h diabetic chronic kidney disease acute [facility] Work Phone: Evaluation note* Diagnosis Hypomagnesemia- Primary Disorders of magnesium metabolism [facility]* Diagnosis Hypomagnesemia- Primary Disorders of magnesium metabolism documented [facility]* Diagnosis 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 (CMS-HCC)- Primary Morbid obesity ([facility]) Morbid obesity documented in this encounter [facility]* Diagnosis Hypomagnesemia- Primary Disorders of magnesium metabolism [facility]* Diagnosis Paresthesia of right lower extremity- Primary Ross's esophagus with dysplasia [facility] this [facility]* Diagnosis Hypomagnesemia- Primary Disorders of magnesium metabolism documented [facility]* Diagnosis Hypomagnesemia- Primary Disorders [...] IN LOWER BACK Hospitalization History see above [facility] Other History general Narrative - Reported* Type [...] HEART CATH 03/30/2021 Hospitalization History see above [facility] Other Hisqmnk general Narrative - Reported* Type Description Date [...] IN LOWER BACK Hospitalization History see above [facility] Other InstructionsNot on filedocumented in this encounter [...] kidney disease) stage 3, GFR 30-59 ml/min [id number] Hyperuricemia Hypomagnesemia Secondary hyperparathyroidism Type 2 diabetes mellitus with diabetic chronic kidney disease Chief Complaint Admit Date Unknown November 20, 2024 4: 20am Additional Source Comments INFORMATION SOURCE (unrecogn ized section and content) DATE CREATED AUTHOR 04/06/2021 [facility] DATE CREATED AUTHOR AUTHOR'S ORGANIZ ATION 05/12/2022 [facility] DATE CREATED AUTHOR AUTHOR'S ORGANIZ ATION 03/15/2023 [facility] DATE CREATED AUTHOR AUTHOR'S ORGANIZ ATION 11/19/2023 [facility] DATE CREATED AUTHOR AUTHOR'S ORGANIZ ATION 11/23/2023 [facility] DATE CREATED AUTHOR AUTHOR'S ORGANIZ ATION 05/31/2024 [facility] DATE CREATED AUTHOR AUTHOR'S ORGANIZ ATION 06/03/2024 [facility] DATE CREATED AUTHOR AUTHOR'S ORGANIZ ATION 11/07/2024 [facility] DATE CREATED AUTHOR AUTHOR'S ORGANIZ ATION 11/23/2024 [facility] REASON FOR VISIT (unrecogniz ed [...] May 01, 2024 End: May 01, 2024 Promotional Marketing Agent Relationship Specialty Start Date End Date Fernie Hackett DO [address], [place] [address] PCP - General Family Medicine 05/09/17 Promotional Marketing Agent Relationship Specialty Start Date End Date Fernie Hackett DO [address], [place] [address] PCP - General Family Medicine 05/09/17 Promotional Marketing Agent Relationship Specialty Start Date End Date Fernie Hackett DO [address], [place] [address] PCP - General Family Medicine 05/09/17 Promotional Marketing Agent Relationship Specialty Start Date End Date RoxannFernie [address], [place] [address] PCP - General Family Medicine 05/09/17 Promotional Marketing Agent Relationship Specialty Start Date End Date Tracyangel luisFernie [address], [place] [address] PCP - General Family Medicine 05/09/17 Team Status: Inactive Member Role Status Dates Fernie Hackett DO Primary Care Provider Active Gia Munoz MD Attending Provider Active Promotional Marketing Agent Relationship Specialty Start Date End Date RoxannFernie [address], [place] [address] PCP - General Family Medicine 05/09/17 Promotional Marketing Agent Relationship Specialty Start Date End Date RoxannFernie [address], [place] [address] PCP - General Family Medicine 05/09/17 Promotional Marketing Agent Relationship Specialty Start Date End Date RoxannFernie [address], [place] [address] PCP - General Family Medicine 05/09/17 Promotional Marketing Agent Relationship Specialty Start Date End Date RoxannFernie [address], [place] [address] PCP - General Family Medicine 05/09/17 Promotional Marketing Agent Relationship Specialty Start Date End Date Fernie Hackett JamarcusDO [address], [place] [address] PCP - General Family Medicine 05/09/17 Promotional Marketing Agent Relationship Specialty Start Date End Date Fernie Hackett DO [address], [place] [address] PCP - General Family Medicine 05/09/17 Promotional Marketing Agent Relationship Specialty Start Date End Date Fernie Hackett DO [address], [place] [address] PCP - General Family Medicine 05/09/17 Promotional Marketing Agent Relationship Specialty Start Date End Date TracymonicaFernie noguera DO [address], [place] [address] PCP - General Family Medicine 05/09/17 Flori Mon [facility] Nurse - [employer] 06/26/24 Promotional Marketing Agent Relationship Specialty Start Date End Date Fernie Hackett DO [address], [place] [address] PCP - General Family Medicine 05/09/17 Flori Mon [facility] Nurse - [employer] 06/26/24 Promotional Marketing Agent Relationship Specialty Start Date End Date TracymonicaFernie noguera DO [address], [place] [address] PCP - General Family Medicine 05/09/17 Flori Mon [facility] Nurse - [employer] 06/26/24 Promotional Marketing Agent Relationship Specialty Start Date End Date TracymonicaFernie noguera DO [address], [place] [address] PCP - General Family Medicine 05/09/17 Flori Mon [facility] Nurse - [employer] 06/26/24 Promotional Marketing Agent Relationship Specialty Start Date End Date Fernie Hackett DO [address], [place] [address] PCP - General Family Medicine 05/09/17 Flori Mon [facility] Nurse - [employer] 06/26/24 Promotional Marketing Agent Relationship Specialty Start Date End Date Fernie Hackett DO [address], [place] [address] PCP - General Family Medicine 05/09/17 Flori Mon [facility] Nurse - [employer] 06/26/24 Promotional Marketing Agent Relationship Specialty Start Date End Date Fernie Hackett DO [address], [place] [address] PCP - General Family Medicine 05/09/17 Flori Mon [facility] Nurse - [employer] 06/26/24 Promotional Marketing Agent Relationship Specialty Start Date End Date Fernie Hackett DO [address], [place] [address] PCP - General Family Medicine 05/09/17 Flori Mon [facility] Nurse - [employer] 06/26/24 Promotional Marketing Agent Relationship Specialty Start Date End Date Fernie Hackett DO [address], [place] [address] PCP - General Family Medicine 05/09/17 Flori Mon [facility] Nurse - [employer] 06/26/24 Promotional Marketing Agent Relationship Specialty Start Date End Date Fernie Hackett DO [address], [place] [address] PCP - General Family Medicine 05/09/17 Flori Mon [facility] Nurse - [employer] 06/26/24 Promotional Marketing Agent Relationship Specialty Start Date End Date Fernie Hackett DO [address], [place] [address] PCP - General Family Medicine 05/09/17 Flori Mon [facility] Nurse - [employer] 06/26/24 Promotional Marketing Agent Relationship Specialty Start Date End Date Fernie Hackett DO [address], [place] [address] PCP - General Family Medicine 05/09/17 Flori Mon [facility] Nurse - [employer] 06/26/24 Promotional Marketing Agent Relationship Specialty Start Date End Date Fernie Hackett DO [address], [place] [address] PCP - General Family Medicine 05/09/17 Flori Mon [facility] Nurse - [employer] 06/26/24 Promotional Marketing Agent Relationship Specialty Start Date End Date Fernie Hackett DO [address], [place] [address] PCP - General Family Medicine 05/09/17 Flori Alvaes [facility] Goals (unrecognized section and [...] BE BASED ON THE PRIMARY CLINICAL RECORDS. [employer] provides no warranty or guarantee of the accuracy or completeness of information in this document.
[2024-11-24] MEDS: LACTATED RINGER'S SOLUTION 1,000 ML 50 ML IV (14:46)
[2024-11-24] MEDS: HEPARIN SODIUM (PORCINE) 5,000 UNIT/ML VIAL 5000 UNIT SUBQ ×2 (14:48→20:36)
--- NOTE | 2024-11-24 15:45 | SWNOTE1 ---
Important Message from Medicare reviewed and discussed with patient. Pt. verbalized understanding and signed the form. Original given to patient and copy placed in patient?s chart.
--- NOTE | 2024-11-24 15:46 | SWNOTE1 ---
SW met with pt to discuss dc needs. Pt lives at home with . Pt uses a walker at home. Pt stated she has fallen a few times at home. Pt stated her helps care for her at home. She stated he does everything, the laundry, grocery shopping, cooking, etc. SW and pt spoke about pt working with therapy and then seeing if pt needs any resources in the home. SW and pt spoke about HH and SNF. SW explained that HH does not come in the and help with laundry or cooking, they only do therapy and a nurse. Pt voiced she really wants to be able to go home. SW did advise that they could look in to private care giving as well. SW to stop back in tomorrow.
[2024-11-24 16:44] LABS: Glucometer 142 mg/dL (74-106)
[2024-11-24] MEDS: HYDROCODONE/ACET 5-325 MG TABLET 1 TAB PO (17:19)
[2024-11-24] MEDS: FUROSEMIDE 40 MG TABLET 80 MG PO (20:35)
[2024-11-24] MEDS: FAMOTIDINE 20 MG TABLET PO (20:36)
[2024-11-24] MEDS: CARVEDILOL 6.25 MG TABLET PO (20:36)
[2024-11-24] MEDS: ALLOPURINOL 100 MG TABLET PO (20:36)
[2024-11-24] MEDS: BACLOFEN 10 MG TABLET PO (21:27)
[2024-11-24] MEDS: CETIRIZINE HCL 10 MG TABLET PO (21:27)
[2024-11-24] MEDS: THEOPHYLLINE ANHYDROUS 400 MG TAB.ER.24H PO (21:27)
[2024-11-24] MEDS: LISINOPRIL 20 MG TABLET 40 MG PO (21:27)
[2024-11-24] MEDS: MONTELUKAST SODIUM 10 MG TABLET PO (21:28)
[2024-11-24 21:31] LABS: Glucometer 158 mg/dL (74-106)
[2024-11-25] VITALS (23 sets, daily range): BP systolic 112–176; BP diastolic 56–73; PULSE 65–82; TEMP 36.6–37.6; O2SAT 92–96
[2024-11-25] MEDS: ALBUTEROL SULFATE 2.5 MG/3 ML VIAL NEB IH ×4 (05:27→21:54)
[2024-11-25 06:03] LABS: Basophils Percent Auto 0.4 % (0.2-2.0); Eosinophils Absolute Auto 0.2 10^3/uL (0.0-0.7); Eosinophils Percent Auto 2.1 % (0.9-7.0); Hematocrit 32.7 % (36.0-48.0); Hemoglobin 10.4 g/dL (12.0-16.0); Immature Granulocytes Abs Auto 0.03 10^3/uL (0.00-0.03); Immature Granulocytes Pct Auto 0.4 % (0.0-0.5); Lymphocytes Absolute Auto 1.7 10^3/uL (1.2-3.8); Lymphocytes Percent Auto 23.2 % (20.5-60.0); Mean Corpuscular HGB Conc 31.8 g/dL (29.9-35.2); Mean Corpuscular Hemoglobin 29.4 pg (26.7-34.0); Mean Corpuscular Volume 92.4 fL (81.0-99.0); Mean Platelet Volume 11.2 fL (9.5-13.5); Monocytes Absolute Auto 0.9 10^3/uL (0.3-0.8); Monocytes Percent Auto 12.7 % (1.7-12.0); Neutrophils Absolute Auto 4.4 10^3/uL (1.4-6.5); Neutrophils Percent Auto 61.2 % (43.0-75.0); Platelet Count 224 10^3/uL (150-450); Red Blood Count 3.54 10^6/uL (4.20-5.40); Red Cell Distribution Width 14.7 % (11.0-15.0); White Blood Count 7.3 10^3/uL (4.0-11.0)
[2024-11-25 06:21] LABS: Alanine Aminotransferase 38 U/L (14-59); Albumin Globulin Ratio 0.8; Albumin Level 2.6 g/dL (3.4-5.0); Alkaline Phosphatase 95 U/L (46-116); Anion Gap 14.5; Aspartate Amino Transferase 32 U/L (15-37); Bilirubin Total 0.4 mg/dL (0.2-1.0); Carbon Dioxide 25.5 mmol/L (21.0-32.0); Chloride 111 mmol/L (98-107); Estimated GFR (African America 28 (>=60 mL/min/1.73m^2); Estimated GFR (Non-African Ame 23 (>=60 mL/min/1.73m^2); Globulin 3.4 g/dL; Glucose 142 mg/dL (74-106); Sodium 147 mmol/L (136-145)
[2024-11-25 06:29] LABS: Estimated Average Glucose 137 mg/dL; Glycohemoglobin A1C 6.4 % (4.5-6.2)
[2024-11-25] MEDS: LACTATED RINGER'S SOLUTION 1,000 ML 50 ML IV (06:51)
[2024-11-25 07:24] LABS: Glucometer 127 mg/dL (74-106)
[2024-11-25] MEDS: ALLOPURINOL 100 MG TABLET PO ×2 (08:55→21:52)
[2024-11-25] MEDS: FUROSEMIDE 40 MG TABLET 80 MG PO ×2 (08:55→16:17)
[2024-11-25] MEDS: ATORVASTATIN CALCIUM 40 MG TABLET 80 MG PO (08:55)
[2024-11-25] MEDS: CARVEDILOL 6.25 MG TABLET PO ×2 (08:55→21:51)
[2024-11-25] MEDS: FAMOTIDINE 20 MG TABLET PO ×2 (08:55→21:52)
[2024-11-25] MEDS: ASPIRIN 81 MG TABLET.DR PO (08:55)
[2024-11-25] MEDS: HEPARIN SODIUM (PORCINE) 5,000 UNIT/ML VIAL 5000 UNIT SUBQ ×2 (08:55→21:51)
--- NOTE | 2024-11-25 09:14 | PM.PN ---
Progress Note: Subjective Subjective Interval history: patient is difficult to arouse this morning, she answers, yep to all questions when asked. She was given Elvaston for pain yesterday. Her Tramadol and gabapentin have been held today. Exam Narrative Exam Narrative: General: Patient is very somnolent this morning, wakes to name Skin: right groin with candidal rash Head: atraumatic, acephalic Heart: Normal rate and rhythm, no murmurs/rubs/gallops Lungs: no audible wheezes, crackles and normal breath sounds all lung valentin Abdomen: Normal audible bowel sounds, no distension, No palpable masses, no organomegaly, no rebound/guarding/ or rigidity Musculoskeletal: mild swelling bilateral lower extremities Constitutional Vital Signs, click to edit/add: Last Vital Signs Temp 98.0 F 11/25/24 07:20 Pulse 70 11/25/24 08:00 Resp 18 11/25/24 07:20 BP 176/73 H 11/25/24 07:20 Pulse Ox 93 L 11/25/24 07:20 O2 Del Method Room Air 11/25/24 07:20 Progress Note: Objective Labs Labs: Short CBC 11/24/24 11/25/24 Range/Units 10:54 05:27 WBC 7.1 7.3 (4.0-11.0) 10^3/uL Hgb 11.1 L 10.4 L (12.0-16.0) g/dL Hct 34.9 L 32.7 L (36.0-48.0) % Plt Count 201 224 (150-450) 10^3/uL BMP 11/24/24 11/25/24 10:54 05:27 Sodium 144 147 H Potassium 4.1 4.0 Chloride 107 111 H Carbon Dioxide 25.5 25.5 BUN 59.0 H 51.0 H Creatinine 2.35 H 2.04 H Glucose 256 H 142 H Calcium 9.4 9.0 Liver Function 11/24/24 11/25/24 Range/Units 10:54 05:27 Total Bilirubin 0.4 0.4 (0.2-1.0) mg/dL Direct Bilirubin 0.1 (0.0-0.2) mg/dL AST 37 32 (15-37) U/L ALT 44 38 (14-59) U/L Alkaline Phosphatase 111 95 (46-116) U/L Albumin 3.1 L 2.6 L (3.4-5.0) g/dL Urine 11/24/24 Range/Units 11:40 Urine Color Lt. yellow (YELLOW) Urine Clarity Cloudy A (CLEAR) Urine pH 5.5 (5.0-9.0) Ur Specific [place] 1.015 (1.005-1.025) Urine Protein Trace (NEG/TRACE) mg/dL Urine Glucose (UA) Negative (NEGATIVE) mg/dL Progress Note: A&P Assessment and Plan (1) Urinary tract infection: Assessment and Plan: due to Ecoli, based on cultures from 11/20/23. Will treat with IV rocephin 1 gram daily, pending new culture, normal wbc's Qualifiers: Hematuria presence: without hematuria Urinary tract infection type: acute cystitis Qualified Code(s): N30.00 - Acute cystitis without hematuria (2) RENÉ (acute kidney injury): Assessment and Plan: Cr was 2.35 up from baseline that is 1.7, stop fluids, renal ultrasound showed no acute process (3) Diarrhea: Assessment and Plan: concern for C Diff. cultures pending Qualifiers: Diarrhea type: unspecified type Qualified Code(s): R19.7 - Diarrhea, unspecified (4) Visual hallucinations: Assessment and Plan: econdary to UTI and infectious diarrhea. CT head ok (5) Acute metabolic encephalopathy: Assessment and Plan: secondary to UTI and infectious diarrhea. CT head ok; stop all narcotics and sedative medications today (6) Lumbar stenosis with neurogenic claudication: Assessment and Plan: holding pain meds at this time (7) Chronic kidney disease: Assessment and Plan: monitor Qualifiers: Chronic kidney disease stage: stage 3 (moderate) Chronic kidney disease stage 3 subtype: stage 3b (GFR 30-44) Qualified Code(s): N18.32 - Chronic kidney disease, stage 3b (8) Diabetes: Assessment and Plan: accuchecks with long acting and SSI, ha1c 6.4 Qualifiers: Chronic kidney disease stage: stage 3 (moderate) Chronic kidney disease stage 3 subtype: stage 3b (GFR 30-44) Diabetes mellitus complication detail: with chronic kidney disease Diabetes mellitus complication status: with kidney complications Diabetes mellitus correction insulin use: with fiberglass insulation installer use Diabetes mellitus type: type 2 Qualified Code(s): E11.22 - Type 2 diabetes mellitus with diabetic chronic kidney disease; N18.32 - Chronic kidney disease, stage 3b; Z79.4 - python engineer (current) use of insulin (9) COPD (chronic obstructive pulmonary disease): Assessment and Plan: continue breo and nebs as needed. singulair, theophylline normal level Qualifiers: COPD type: unspecified COPD Qualified Code(s): J44.9 - Chronic obstructive pulmonary disease, unspecified (10) High cholesterol: Assessment and Plan: continue atorvastatin (11) HTN (hypertension): Assessment and Plan: continue coreg, lasix, ramipril Qualifiers: Hypertension type: secondary to endocrine disorders Qualified Code(s): I15.2 - Hypertension secondary to endocrine disorders (12) Gout due to renal impairment: Assessment and Plan: continue allopurinol Qualifiers: Chronicity: chronic Gout site: shoulder Laterality: unspecified laterality Presence of tophus: without tophus Qualified Code(s): M1A.3190 - Chronic gout due to renal impairment, unspecified shoulder, without tophus (tophi) (13) GERD without esophagitis: Assessment and Plan: continue famotidine Plan patient is a DNRCCA continue heparin for DVT prophylaxis cultures pending, will require 1-2 more days until cultures result to guide antibiotic coverage. Urinary Catheter Management Urinary Catheter Management Straight: Cath placed during this visit: yes Urethral indwelling: Yes Reason for continuing: acute urinary retention Insertion date: 11/24/24
--- NOTE | 2024-11-25 10:30 | CM.NOTE ---
Rounds made with Dr. Harrington, discussed plan of care with pt. No discharge today, awaiting PT and OT evaluation for discharge planning.
[2024-11-25] MEDS: BUDESONIDE 0.5 MG/2 ML AMPULE NEB IH ×2 (11:11→21:54)
--- NOTE | 2024-11-25 11:57 | SWNOTE1 ---
Pt will need SNF at discharge if agreeable. SW stopped in and spoke to pt. SW explained that at this time therapy is recommending SNF for strengthening. Pt half awake and eyes keep closing. SW asked if her would be coming in? She stated he will be, SW to stop back later this morning/afternoon.
[2024-11-25 12:15] LABS: Glucometer 115 mg/dL (74-106)
[2024-11-25] MEDS: CEFTRIAXONE 1,000 MG in 0.9 % SODIUM CHLORIDE 50 ML 100 MG IV (13:32)
--- NOTE | 2024-11-25 13:50 | SWNOTE1 ---
Pt's has arrived. SW spoke to pt and about recommendation of rehab for pt. Pt's in agreement. Pt voiced she would like the [facility]. [facility] to send referral. Referral sent to [facility]. Referral included face sheet, ED note, H&P, provider notes, case management report, wound consult, nursing notes, diagnostic imaging, med list, and PT/OT notes.
[2024-11-25] MEDS: TRAMADOL HCL 50 MG TABLET PO (14:49)
[2024-11-25 14:58] LABS: C. Difficile PCR NEGATIVE
--- NOTE | 2024-11-25 15:42 | SWNOTE1 ---
SW received message from [facility] and they are able to accept when pt is medically stable for discharge.
--- NOTE | 2024-11-25 15:44 | SWNOTE1 ---
SW called and left message for pt's on home phone.
[2024-11-25 16:27] LABS: Glucometer 194 mg/dL (74-106)
[2024-11-25 20:30] LABS: Glucometer 225 mg/dL (74-106)
[2024-11-25] MEDS: LISINOPRIL 20 MG TABLET 40 MG PO (21:51)
[2024-11-25] MEDS: MONTELUKAST SODIUM 10 MG TABLET PO (21:52)
[2024-11-25] MEDS: CETIRIZINE HCL 10 MG TABLET PO (21:52)
[2024-11-25] MEDS: INSULIN GLARGINE 300 UNIT/3 ML INSULN.PEN 46 UNIT SQ (21:52)
[2024-11-25] MEDS: THEOPHYLLINE ANHYDROUS 400 MG TAB.ER.24H PO (21:52)
[2024-11-26] VITALS (21 sets, daily range): BP systolic 121–180; BP diastolic 55–82; PULSE 59–85; TEMP 36.8–37.1; O2SAT 91–95
[2024-11-26] MEDS: ALBUTEROL SULFATE 2.5 MG/3 ML VIAL NEB IH ×4 (05:35→20:40)
[2024-11-26 05:39] LABS: Basophils Percent Auto 0.4 % (0.2-2.0); Eosinophils Absolute Auto 0.2 10^3/uL (0.0-0.7); Eosinophils Percent Auto 2.7 % (0.9-7.0); Hematocrit 31.2 % (36.0-48.0); Immature Granulocytes Abs Auto 0.05 10^3/uL (0.00-0.03); Immature Granulocytes Pct Auto 0.7 % (0.0-0.5); Lymphocytes Absolute Auto 2.1 10^3/uL (1.2-3.8); Lymphocytes Percent Auto 28.7 % (20.5-60.0); Mean Corpuscular HGB Conc 32.1 g/dL (29.9-35.2); Mean Corpuscular Hemoglobin 29.8 pg (26.7-34.0); Mean Corpuscular Volume 92.9 fL (81.0-99.0); Neutrophils Absolute Auto 3.9 10^3/uL (1.4-6.5); Neutrophils Percent Auto 53.5 % (43.0-75.0); Platelet Count 211 10^3/uL (150-450); Red Blood Count 3.36 10^6/uL (4.20-5.40); Red Cell Distribution Width 14.9 % (11.0-15.0); White Blood Count 7.3 10^3/uL (4.0-11.0)
[2024-11-26 06:09] LABS: Alanine Aminotransferase 31 U/L (14-59); Albumin Globulin Ratio 0.7; Albumin Level 2.5 g/dL (3.4-5.0); Alkaline Phosphatase 92 U/L (46-116); Anion Gap 11.8; Aspartate Amino Transferase 25 U/L (15-37); BUN Creatinine Ratio 26.8; Bilirubin Total 0.3 mg/dL (0.2-1.0); Calcium 8.8 mg/dL (8.5-10.1); Carbon Dioxide 27.2 mmol/L (21.0-32.0); Chloride 110 mmol/L (98-107); Estimated GFR (African America 29 (>=60 mL/min/1.73m^2); Estimated GFR (Non-African Ame 24 (>=60 mL/min/1.73m^2); Globulin 3.4 g/dL; Glucose 132 mg/dL (74-106); Sodium 145 mmol/L (136-145); Total Protein 5.9 g/dL (6.4-8.2)
[2024-11-26] MEDS: FUROSEMIDE 40 MG TABLET 80 MG PO ×2 (08:11→16:45)
[2024-11-26] MEDS: FAMOTIDINE 20 MG TABLET PO ×2 (08:11→21:57)
[2024-11-26] MEDS: CARVEDILOL 6.25 MG TABLET PO ×2 (08:11→21:57)
[2024-11-26] MEDS: ASPIRIN 81 MG TABLET.DR PO (08:11)
[2024-11-26] MEDS: ATORVASTATIN CALCIUM 40 MG TABLET 80 MG PO (08:12)
[2024-11-26] MEDS: TRAMADOL HCL 50 MG TABLET PO ×2 (08:12→13:17)
[2024-11-26] MEDS: HEPARIN SODIUM (PORCINE) 5,000 UNIT/ML VIAL 5000 UNIT SUBQ ×2 (08:12→22:04)
[2024-11-26] MEDS: ALLOPURINOL 100 MG TABLET PO ×2 (08:12→21:57)
--- NOTE | 2024-11-26 09:04 | PM.PN ---
Progress Note: Subjective Subjective Interval history: Patient alert and sitting up in bed today. She is smiling and answers questions appropriately. She says her pain is controlled on her home Tramadol. I told her I would schedule that today. She is still having some diarrhea. I discussed with her her renal ultrasound was normal and C Diff test was negative. Her Creatinine is improving. She is getting precertified for the [facility] and hopefully will be ready to go there tomorrow. She is looking forward to some inpatient therapy. No other issues or complaints today. Exam Narrative Exam Narrative: General: Patient is alert, and oriented to person, place and time with normal affect, proper hygiene Skin: no visible rashes, or ulcers Head: atraumatic, acephalic Eyes: PERRLA, no nystagmus present, conjunctiva clear, no scleral icterus Heart: Normal rate and rhythm, no murmurs/rubs/gallops Lungs: no audible wheezes, crackles and normal breath sounds all lung valentin Abdomen: Normal audible bowel sounds, no distension, No palpable masses, no organomegaly, no rebound/guarding/ or rigidity Musculoskeletal: no swelling bilateral lower extremities Neuro: CN II-X grossly intact Constitutional Vital Signs, click to edit/add: Last Vital Signs Temp 98.8 F 11/26/24 08:23 Pulse 69 11/26/24 08:23 Resp 18 11/26/24 08:23 BP 140/63 11/26/24 08:23 Pulse Ox 93 L 11/26/24 08:23 O2 Del Method Room Air 11/26/24 08:23 Progress Note: Objective Labs Labs: Short CBC 11/26/24 Range/Units 05:03 WBC 7.3 (4.0-11.0) 10^3/uL Hgb 10.0 L (12.0-16.0) g/dL Hct 31.2 L (36.0-48.0) % Plt Count 211 (150-450) 10^3/uL BMP 11/26/24 05:03 Sodium 145 Potassium 4.0 Chloride 110 H Carbon Dioxide 27.2 BUN 53.0 H Creatinine 1.98 H Glucose 132 H Calcium 8.8 Liver Function 11/26/24 Range/Units 05:03 Total Bilirubin 0.3 (0.2-1.0) mg/dL AST 25 (15-37) U/L ALT 31 (14-59) U/L Alkaline Phosphatase 92 (46-116) U/L Albumin 2.5 L (3.4-5.0) g/dL Progress Note: A&P Assessment and Plan (1) Urinary tract infection: Assessment and Plan: due to Ecoli, based on cultures from 11/20/23. Will treat with IV rocephin 1 gram daily, pending new culture will treat for yeast with diflucan 150mg PO x 1. Qualifiers: Hematuria presence: without hematuria Urinary tract infection type: acute cystitis Qualified Code(s): N30.00 - Acute cystitis without hematuria (2) RENÉ (acute kidney injury): Assessment and Plan: Cr was 1.98, from baseline that is 1.7, renal ultrasound showed no acute process, from UTI. (3) Diarrhea: Assessment and Plan: not infectious. Will place on [place] PRN Qualifiers: Diarrhea type: unspecified type Qualified Code(s): R19.7 - Diarrhea, unspecified (4) Visual hallucinations: Assessment and Plan: resolved (5) Acute metabolic encephalopathy: Assessment and Plan: secondary to UTI . CT head ok, resolved (6) Lumbar stenosis with neurogenic claudication: Assessment and Plan: continue tramadol (7) Chronic kidney disease: Assessment and Plan: from diabetes, monitor Qualifiers: Chronic kidney disease stage: stage 3 (moderate) Chronic kidney disease stage 3 subtype: stage 3b (GFR 30-44) Qualified Code(s): N18.32 - Chronic kidney disease, stage 3b (8) Diabetes: Assessment and Plan: accuchecks with long acting and SSI, ha1c 6.4 Qualifiers: Chronic kidney disease stage: stage 3 (moderate) Chronic kidney disease stage 3 subtype: stage 3b (GFR 30-44) Diabetes mellitus complication detail: with chronic kidney disease Diabetes mellitus complication status: with kidney complications Diabetes mellitus penitentiary insulin use: with fixture repairer fabricator use Diabetes mellitus type: type 2 Qualified Code(s): E11.22 - Type 2 diabetes mellitus with diabetic chronic kidney disease; N18.32 - Chronic kidney disease, stage 3b; Z79.4 - group home (current) use of insulin (9) COPD (chronic obstructive pulmonary disease): Assessment and Plan: continue breo and nebs as needed. singulair, theophylline normal level Qualifiers: COPD type: unspecified COPD Qualified Code(s): J44.9 - Chronic obstructive pulmonary disease, unspecified (10) High cholesterol: Assessment and Plan: continue atorvastatin (11) HTN (hypertension): Assessment and Plan: continue coreg, lasix, ramipril Qualifiers: Hypertension type: secondary to endocrine disorders Qualified Code(s): I15.2 - Hypertension secondary to endocrine disorders (12) Gout due to renal impairment: Assessment and Plan: continue allopurinol Qualifiers: Chronicity: chronic Gout site: shoulder Laterality: unspecified laterality Presence of tophus: without tophus Qualified Code(s): M1A.3190 - Chronic gout due to renal impairment, unspecified shoulder, without tophus (tophi) (13) GERD without esophagitis: Assessment and Plan: continue famotidine Plan patient is a DNRCCA continue heparin for DVT prophylaxis Transition to Oral antibiotics today, Treat Ecoli UTI, hopeful discharge to long term facility for acute rehab tomorrow. Urinary Catheter Management Urinary Catheter Management Straight: Cath placed during this visit: yes Urethral indwelling: Yes Reason for continuing: prolonged immobilization Insertion date: 11/24/24
[2024-11-26] MEDS: FLUCONAZOLE 150 MG TABLET PO (10:06)
[2024-11-26] MEDS: BUDESONIDE 0.5 MG/2 ML AMPULE NEB IH ×2 (11:14→20:40)
--- NOTE | 2024-11-26 11:37 | PT.DAILY ---
Physical Therapy Daily Note PT Daily Note/Assess Start: 11/26/24 11:36 Freq: Status: Active Protocol: Document 11/26/24 11:36 CHRIS (Rec: 11/26/24 11:37 CHRIS [id number]) Visit Not Completed Visit Not Completed Visit Not Completed Other Due to: Other Reason Visit With another provider. Will follow up this afternoon. Not Completed Physical Therapy Daily Note/Assessment Time In/Time Out Time In 11:25 Time Out 11:25 GG. Functional Abilities and Goals-Complete for Swing Bed Patients Only [id number]. Self-Care [id number]. Mobility
--- NOTE | 2024-11-26 12:20 | CM.NOTE ---
Rounds made with Dr. Harrington, pt more awake today. Pt continues with back pain but states Tramadol is helping. No discharge today.
[2024-11-26 12:24] LABS: Glucometer 134 mg/dL (74-106)
[2024-11-26] MEDS: DICYCLOMINE HCL 10 MG CAPSULE PO (12:33)
--- NOTE | 2024-11-26 12:51 | PT.DAILY ---
Physical Therapy Daily Note PT Daily Note/Assess Start: 11/26/24 11:36 Freq: Status: Active Protocol: Document 11/26/24 12:43 MAKELSAEDIN (Rec: 11/26/24 12:51 CHRIS [id number]) Physical Therapy Daily Note/Assessment Time In/Time Out Time In 12:25 Time Out 12:42 Pain In Pain N/A Pain Out Pain N/A Subjective Subjective Pt supine upon arrival. Reports she just ordered lunch but willing to work til it gets here. 4/10 pain all over while at rest. Therapeutic Exercise Time Therapeutic Exercise 3 Minutes (minutes) Therapeutic Exercise 0 Units Therapeutic Exercise Treatment Therapeutic Exercise Seated bilat LE strengthening ex while sitting EOB with Treatment bilat UE support. Demonstrates significant cervical flexion while sitting. Therapeutic Activity Time Therapeutic Activity 8 Minutes (minutes) Therapeutic Activity 1 Units Therapeutic Activity Treatment Bed Mobility Ability Maximum Assist Therapeutic Activity Supine>sit MaxA to advance upper body to sit EOB. Pt Comments requires increased time to scoot hips forward and get feet to floor. Pt sits EOB while performing bilat LE strengthening ex - bilat UE support but no outside assistance to maintain balance. Pt refuses to attempt to stand but does agree to scoot up towards head of bed before performing sit>supine. Pt able to scoot herself about 1 foot up the bed with increased time to complete. Pt requires MaXA for sit>supine to advance bilat LEs and to adjust her head/shoulders. Pt remains supine with call light within reach and needs met. Total Physical Therapy Time Total Therapy 11 Minutes Total Physical 1 Therapy Units Summary Daily Note Summary Cont to require maxA for transfers. Would benefit from SNF to regain strength and endurance. Very easily fatigued with this little activity. C/o L hip pain 6/10 upon completion.
[2024-11-26] MEDS: CEFTRIAXONE 1,000 MG in 0.9 % SODIUM CHLORIDE 50 ML 100 MG IV (13:16)
[2024-11-26] MEDS: 0.9 % SODIUM CHLORIDE 250 ML 10 ML IV (13:17)
--- NOTE | 2024-11-26 15:33 | SWNOTE1 ---
AYAH spoke with pt and her . Pt's brought her HCPOA and living will. He also brought his. SW made a copy of both his and the patients. AYAH gave med/surge secretary to the vice president copy of pt's and she will label and place in chart. SW sent pt's husbands down to medical records. SW advised pt and that there is a chance she will be discharged tomorrow to [facility] if medically stable. Pt's brought clothes for her. AYAH spoke with them about transport and they do not feel pt can get in to a private car. SW likely to set up trips tomorrow.
[2024-11-26 16:45] LABS: Glucometer 160 mg/dL (74-106)
[2024-11-26 21:37] LABS: Glucometer 180 mg/dL (74-106)
[2024-11-26] MEDS: MONTELUKAST SODIUM 10 MG TABLET PO (21:57)
[2024-11-26] MEDS: THEOPHYLLINE ANHYDROUS 400 MG TAB.ER.24H PO (21:57)
[2024-11-26] MEDS: CETIRIZINE HCL 10 MG TABLET PO (21:57)
[2024-11-26] MEDS: LISINOPRIL 20 MG TABLET 40 MG PO (21:57)
[2024-11-26] MEDS: HYDRALAZINE HCL 20 MG/ML VIAL 10 MG IVP (23:48)
[2024-11-27] VITALS (26 sets, daily range): BP systolic 138–184; BP diastolic 61–79; PULSE 62–99; TEMP 36.6–37; O2SAT 90–94
[2024-11-27] MEDS: TRAMADOL HCL 50 MG TABLET PO ×4 (03:05→22:04)
[2024-11-27] MEDS: HYDRALAZINE HCL 20 MG/ML VIAL 10 MG IVP ×3 (03:41→19:45)
[2024-11-27] MEDS: ALBUTEROL SULFATE 2.5 MG/3 ML VIAL NEB IH ×2 (05:36→10:54)
[2024-11-27 05:46] LABS: Basophils Percent Auto 0.4 % (0.2-2.0); Eosinophils Absolute Auto 0.2 10^3/uL (0.0-0.7); Eosinophils Percent Auto 3.2 % (0.9-7.0); Hematocrit 32.3 % (36.0-48.0); Hemoglobin 10.2 g/dL (12.0-16.0); Immature Granulocytes Abs Auto 0.11 10^3/uL (0.00-0.03); Immature Granulocytes Pct Auto 1.6 % (0.0-0.5); Lymphocytes Percent Auto 28.1 % (20.5-60.0); Mean Corpuscular HGB Conc 31.6 g/dL (29.9-35.2); Mean Corpuscular Hemoglobin 29.3 pg (26.7-34.0); Mean Corpuscular Volume 92.8 fL (81.0-99.0); Mean Platelet Volume 10.5 fL (9.5-13.5); Monocytes Absolute Auto 0.9 10^3/uL (0.3-0.8); Neutrophils Absolute Auto 3.7 10^3/uL (1.4-6.5); Neutrophils Percent Auto 53.7 % (43.0-75.0); Platelet Count 199 10^3/uL (150-450); Red Blood Count 3.48 10^6/uL (4.20-5.40); Red Cell Distribution Width 14.8 % (11.0-15.0); White Blood Count 6.9 10^3/uL (4.0-11.0)
[2024-11-27 06:03] LABS: Alanine Aminotransferase 31 U/L (14-59); Albumin Globulin Ratio 0.7; Albumin Level 2.5 g/dL (3.4-5.0); Alkaline Phosphatase 99 U/L (46-116); Aspartate Amino Transferase 21 U/L (15-37); BUN Creatinine Ratio 27.6; Bilirubin Total 0.3 mg/dL (0.2-1.0); Calcium 9.2 mg/dL (8.5-10.1); Carbon Dioxide 27.8 mmol/L (21.0-32.0); Chloride 109 mmol/L (98-107); Estimated GFR (African America 32 (>=60 mL/min/1.73m^2); Estimated GFR (Non-African Ame 27 (>=60 mL/min/1.73m^2); Globulin 3.4 g/dL; Glucose 144 mg/dL (74-106); Potassium 3.8 mmol/L (3.5-5.1); Sodium 143 mmol/L (136-145); Total Protein 5.9 g/dL (6.4-8.2)
[2024-11-27] MEDS: CEPHALEXIN 500 MG CAPSULE PO (08:29)
[2024-11-27] MEDS: ATORVASTATIN CALCIUM 40 MG TABLET 80 MG PO (08:29)
[2024-11-27] MEDS: HEPARIN SODIUM (PORCINE) 5,000 UNIT/ML VIAL 5000 UNIT SUBQ ×2 (08:29→22:32)
[2024-11-27] MEDS: CARVEDILOL 6.25 MG TABLET PO ×2 (08:29→22:03)
[2024-11-27] MEDS: ASPIRIN 81 MG TABLET.DR PO (08:29)
[2024-11-27] MEDS: ALLOPURINOL 100 MG TABLET PO ×2 (08:29→22:05)
[2024-11-27] MEDS: FUROSEMIDE 40 MG TABLET 80 MG PO (08:30)
[2024-11-27] MEDS: FAMOTIDINE 20 MG TABLET PO ×2 (08:30→22:03)
--- NOTE | 2024-11-27 08:33 | P.DS_ITS ---
DS: Providers Provider Date of admission: 11/24/24 14:08 Primary care physician: SHANDA CLARK Admitting clinician: Marion Harrington Consults: 11/24/24 13:38 Occupational Therapy Eval and Treat Routine Reason for consultation: weakness Has provider been notified: No Physical Therapy Eval and Treat Routine Reason for consultation: weakness Has provider been notified: No Discharging clinician: Marion Harrington DS: Diagnosis Discharge Diagnosis (1) Urinary tract infection: Qualifiers: Hematuria presence: without hematuria Urinary tract infection type: acute cystitis Qualified Code(s): N30.00 - Acute cystitis without hematuria (2) RENÉ (acute kidney injury): (3) Diarrhea: Qualifiers: Diarrhea type: unspecified type Qualified Code(s): R19.7 - Diarrhea, unspecified (4) Visual hallucinations: (5) Acute metabolic encephalopathy: (6) Lumbar stenosis with neurogenic claudication: (7) Chronic kidney disease: Qualifiers: Chronic kidney disease stage: stage 3 (moderate) Chronic kidney disease stage 3 subtype: stage 3b (GFR 30-44) Qualified Code(s): N18.32 - Chronic kidney disease, stage 3b (8) Diabetes: Qualifiers: Chronic kidney disease stage: stage 3 (moderate) Chronic kidney disease stage 3 subtype: stage 3b (GFR 30-44) Diabetes mellitus complication detail: with chronic kidney disease Diabetes mellitus complication status: with kidney complications Diabetes mellitus care home insulin use: with care home use Diabetes mellitus type: type 2 Qualified Code(s): E11.22 - Type 2 diabetes mellitus with diabetic chronic kidney disease; N18.32 - Chronic kidney disease, stage 3b; Z79.4 - termite helper (current) use of insulin (9) COPD (chronic obstructive pulmonary disease): Qualifiers: COPD type: unspecified COPD Qualified Code(s): J44.9 - Chronic obstructive pulmonary disease, unspecified (10) High cholesterol: (11) 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 Qualified Code(s): I15.2 - Hypertension secondary to endocrine disorders (12) Gout due to renal impairment: Qualifiers: Chronicity: chronic Gout site: shoulder Laterality: unspecified laterality Presence of tophus: without tophus Qualified Code(s): M1A.3190 - Chronic gout due to renal impairment, unspecified shoulder, without tophus (tophi) (13) GERD without esophagitis: DS: Summary Hospital Course Hospital Course: patient admitted on 11/24/24 for past medical history of 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 Conley), HLD, HTN, COPD, GERD, Gout who presented to the ER after feeling confused and seeing people out of the corners of her eyes. She says the last few days it's hard for her to remember what shes doing. She was seen in the ER on 11/20/24 and diagnosed with UTI, cultures show ECOLI, she was treated with keflex. She has been having diarrhea about 3-4 times a day with accidents. She says it's been difficult to get her self clean. She de nies pain in the bladder but urgency and frequency. She has felt chilled at times. She is alert and oriented x 3 on admission. She says her glucometer quit working and she cannot check her sugars. She has been taking her medications like she should. She resides at home with her . She uses a walker to get around the house. She says it's been difficult at home, due to the accidents and her having to wash clothes. ER findings: UA positive, prior culture positive for Ecoli. WBC's 7.1, Hb 11.1, Creatinine 2.35; CXR shows cardiomegaly, CT head shows cerebral volume loss. patient did well on Rocephin. New culture showed some Candidal but no new bacteria. She was treated with diflucan 150mg po x 1, along with Keflex 500mg BID x 7 days. Her renal ultrasound was normal. Creatinine at the time of discharge was 1.81. Ha1c 6.4 which shows good control on current insulin regimen. She was still weak and took assistance with getting out of bed. She will benefit from custodial for inpatient rehab. She will be transferred to the [facility] today for this. Patient had episode of emesis this morning but I think from morning meds all at once. Vitals are stable. She will resume home medications with addition of the keflex for Ecoli UTI. She may return to the ER with any worsening signs or symptoms. Status at Discharge Functional status at discharge: uses cane/walker Overall status at discharge: patient is progressing back to baseline Time Spent with Patient Time attestation: Total time spent providing and/or coordinating discharge services: Time spent: greater than 30 minutes Exam Narrative Exam Narrative: General: Patient is alert, and oriented to person, place and time with normal affect, proper hygiene Skin: no visible rashes, or ulcers Head: atraumatic, acephalic Eyes: PERRLA, no nystagmus present, conjunctiva clear, no scleral icterus Heart: Normal rate and rhythm, no murmurs/rubs/gallops Lungs: no audible wheezes, crackles and normal breath sounds all lung valentin Abdomen: Normal audible bowel sounds, no distension, No palpable masses, no organomegaly, no rebound/guarding/ or rigidity Musculoskeletal: no swelling bilateral lower extremities Neuro: CN II-X grossly intact Constitutional Vital Signs, click to edit/add: Last Vital Signs Temp 98.6 F 11/27/24 03:38 Pulse 81 11/27/24 08:00 Resp 16 11/27/24 05:36 BP 145/62 H 11/27/24 05:46 Pulse Ox 94 L 11/27/24 05:36 O2 Del Method Room Air 11/27/24 05:36 DS: Data Data Completed and Pending Labs on day of discharge: Labs from last 24 hours 11/27/24 11/26/24 11/26/24 05:31 21:36 16:44 WBC 6.9 RBC 3.48 L Hgb 10.2 L Hct 32.3 L MCV 92.8 MCH 29.3 MCHC 31.6 RDW 14.8 Plt Count 199 MPV 10.5 Neut % (Auto) 53.7 Lymph % (Auto) 28.1 [place] % (Auto) 13.0 H Eos % (Auto) 3.2 Baso % (Auto) 0.4 Neut # (Auto) 3.7 Lymph # (Auto) 2.0 [place] # (Auto) 0.9 H Eos # (Auto) 0.2 Baso # (Auto) 0.0 Abs Immat Gran (auto) 0.11 H Imm/Tot Granulo (auto) 1.6 H Sodium 143 Potassium 3.8 Chloride 109 H Carbon Dioxide 27.8 Anion Gap 10.0 BUN 50.0 H Creatinine 1.81 H Est GFR ( Amer) 32 L Est GFR (Non-Af Amer) 27 L BUN/Creatinine Ratio 27.6 Glucose 144 H Calcium 9.2 Total Bilirubin 0.3 AST 21 ALT 31 Alkaline Phosphatase 99 Total Protein 5.9 L Albumin 2.5 L Globulin 3.4 Albumin/Globulin Ratio 0.7 POC Glucose 180 H 160 H 11/26/24 11:52 WBC RBC Hgb Hct MCV MCH MCHC RDW Plt Count MPV Neut % (Auto) Lymph % (Auto) [place] % (Auto) Eos % (Auto) Baso % (Auto) Neut # (Auto) Lymph # (Auto) [place] # (Auto) Eos # (Auto) Baso # (Auto) Abs Immat Gran (auto) Imm/Tot Granulo (auto) Sodium Potassium Chloride Carbon Dioxide Anion Gap BUN Creatinine Est GFR ( Amer) Est GFR (Non-Af Amer) BUN/Creatinine Ratio Glucose Calcium Total Bilirubin AST ALT Alkaline Phosphatase Total Protein Albumin Globulin Albumin/Globulin Ratio POC Glucose 134 H Preliminary micro results at discharge 11/24/24 11:21 Blood Culture Result 2 - Preliminary Blood - Left Forearm NO GROWTH AT 36-48 HOURS. FINAL TO FOLLOW. 11/24/24 10:58 Blood Culture Result 1 - Preliminary Blood - Left Antecubital NO GROWTH AT 36-48 HOURS. FINAL TO FOLLOW. Discharge Plan Discharge Disposition: Xfer SNF Condition: Fair Discharge Medications: New cephalexin 500 mg Capsule 500 mg PO BID 7 Days Qty: 14 0RF Continued aspirin 81 mg tablet,delayed release (DR/EC) 81 mg PO DAILY atorvastatin 80 mg tablet 80 mg PO DAILY baclofen 10 mg tablet 10 mg PO .QHS insulin lispro 100 unit/mL insulin pen 6 unit subcut BIDWM theophylline 400 mg tablet extended release 24 hr 400 mg PO .QHS carvedilol 6.25 mg tablet 6.25 mg PO BID allopurinol 100 mg tablet 100 mg PO BID famotidine 20 mg tablet 20 mg PO BID montelukast 10 mg tablet 10 mg PO .QHS ramipril 10 mg capsule 10 mg PO .QHS levocetirizine 5 mg tablet 5 mg PO .QHS fluticasone furoate-vilanterol [Breo Ellipta] 200-25 mcg/dose blister with device 1 inh INHALATION Q24H pregabalin [Lyrica] 75 mg capsule 75 mg PO DAILY tramadol 100 mg tablet extended release 24 hr 100 mg PO DAILY furosemide 40 mg tablet 80 mg PO BID insulin glargine [Lantus Solostar U-100 Insulin] 100 unit/mL (3 mL) insulin pen 46 unit SUBCUT .qhs Discontinued cephalexin 500 mg capsule 500 mg PO TID 7 Days Qty: 21 0RF Patient Comments: 11/20/24-11/27/24 Print Language: [place] Forms: Portal Instructions Discharge location: Discharged to the [facility]
[2024-11-27] MEDS: ONDANSETRON PF 4 MG/2 ML VIAL IV ×3 (09:50→19:46)
[2024-11-27] MEDS: BUDESONIDE 0.5 MG/2 ML AMPULE NEB IH (10:54)
[2024-11-27 11:15] LABS: Glucometer 159 mg/dL (74-106)
--- NOTE | 2024-11-27 11:54 | CM.NOTE ---
Rounds made with Dr. Harrington. Potential plan for discharge after lunch today to [facility]. Adore verbalizes understanding.
[2024-11-27] MEDS: OMEPRAZOLE 40 MG CAPSULE.DR PO (14:36)
--- NOTE | 2024-11-27 14:42 | SWNOTE1 ---
AYAH spoke with pt's earlier this morning and let him know we are waiting to see if pt tolerate lunch and then possible discharge. AYAH spoke with pt's out in hallway around 12:30. He did have concerns about her being discharged and her nausea. SW advised that SW can reach to doctor and doctor can come speak him about concerns. in agreement.
--- NOTE | 2024-11-27 14:45 | SWNOTE1 ---
Pt will not be discharged today. SW updated [place].
[2024-11-27 16:21] LABS: Glucometer 173 mg/dL (74-106)
[2024-11-27] MEDS: INSULIN ASPART 300 UNIT/3 ML PEN SUBQ (16:33)
--- NOTE | 2024-11-27 16:42 | XR_ITS ---
The [address] [address] Patient Name: DAVID DUGAN MRN: [id number] date: 1940 Sex: F Assigned Patient Location: [place] Current Patient Location: [place] Accession/Order Number: [id number] Exam Date: 11/27/2024 17:25 Report Date: 11/27/2024 20:37 At the request of: ANGIE IRENE Procedure: XR abdomen min 2V EXAMINATION: XR abdomen min 2V HISTORY: abdominal pain nausea and vomiting COMPARISON: No relevant comparison available. FINDINGS: BOWEL GAS PATTERN: Large amount of stool within rectal vault. FREE AIR: None. CALCIFICATIONS: None significant. BONES: Scoliotic curvature and degenerative disc disease lumbar spine. OTHER: Negative. XR/XR abdomen min 2V IMPRESSION: 1. Very limited examination due to patient body habitus. 2. Large amount stool within rectal vault; fecal impaction versus constipation. Electronically authenticated by: CANDICE GIVENS Date: 11/27/2024 20:37
[2024-11-27 17:01] LABS: Basophils Absolute Auto 0.1 10^3/uL (0.0-0.1); Basophils Percent Auto 0.6 % (0.2-2.0); Eosinophils Absolute Auto 0.2 10^3/uL (0.0-0.7); Eosinophils Percent Auto 2.1 % (0.9-7.0); Hematocrit 35.3 % (36.0-48.0); Hemoglobin 11.5 g/dL (12.0-16.0); Immature Granulocytes Abs Auto 0.23 10^3/uL (0.00-0.03); Immature Granulocytes Pct Auto 2.8 % (0.0-0.5); Lymphocytes Absolute Auto 1.5 10^3/uL (1.2-3.8); Lymphocytes Percent Auto 18.3 % (20.5-60.0); Mean Corpuscular HGB Conc 32.6 g/dL (29.9-35.2); Mean Corpuscular Hemoglobin 30.1 pg (26.7-34.0); Mean Corpuscular Volume 92.4 fL (81.0-99.0); Monocytes Absolute Auto 0.7 10^3/uL (0.3-0.8); Monocytes Percent Auto 8.7 % (1.7-12.0); Neutrophils Absolute Auto 5.5 10^3/uL (1.4-6.5); Neutrophils Percent Auto 67.5 % (43.0-75.0); Platelet Count 223 10^3/uL (150-450); Red Blood Count 3.82 10^6/uL (4.20-5.40); Red Cell Distribution Width 14.9 % (11.0-15.0); White Blood Count 8.2 10^3/uL (4.0-11.0)
[2024-11-27] MEDS: PROMETHAZINE HCL 12.5 MG in 0.9 % SODIUM CHLORIDE 50 ML 202 MG IV (17:10)
[2024-11-27 17:20] LABS: Anion Gap 13.9; BUN Creatinine Ratio 26.3; Calcium 9.6 mg/dL (8.5-10.1); Carbon Dioxide 28.3 mmol/L (21.0-32.0); Chloride 107 mmol/L (98-107); Estimated GFR (African America 34 (>=60 mL/min/1.73m^2); Estimated GFR (Non-African Ame 28 (>=60 mL/min/1.73m^2); Glucose 182 mg/dL (74-106); Magnesium 1.5 mg/dL (1.8-2.4); Potassium 4.2 mmol/L (3.5-5.1); Sodium 145 mmol/L (136-145)
[2024-11-27] MEDS: ACETAMINOPHEN 1,000 MG/100 ML PREMIX 400 MG IV (17:50)
[2024-11-27] MEDS: MAGNESIUM SULFATE IN WATER 2 GM/50 ML PREMIX IV (18:09)
[2024-11-27] MEDS: CEFTRIAXONE 1,000 MG in 0.9 % SODIUM CHLORIDE 50 ML 100 MG IV (19:45)
[2024-11-27] MEDS: DICYCLOMINE HCL 10 MG CAPSULE PO (19:46)
[2024-11-27 21:08] LABS: Glucometer 152 mg/dL (74-106)
[2024-11-27] MEDS: lidocaine HCL 15 ML, MAG HYDROX/ALUMINUM HYD/SIMETH 30 ML, HYOSCYAMINE SULFATE 0.25 MG PO (21:54)
[2024-11-27] MEDS: PROCHLORPERAZINE 10 MG/2 ML VIAL IV (22:00)
[2024-11-27] MEDS: LISINOPRIL 20 MG TABLET 40 MG PO (22:03)
[2024-11-27] MEDS: THEOPHYLLINE ANHYDROUS 400 MG TAB.ER.24H PO (22:05)
[2024-11-27] MEDS: CETIRIZINE HCL 10 MG TABLET PO (22:06)
[2024-11-27] MEDS: LORAZEPAM 2 MG/ML VIAL 0.5 MG IV (22:23)
[2024-11-27] MEDS: LACTULOSE 10 GM/15 ML UD CUP 30 GM PO (22:33)
[2024-11-28] VITALS (11 sets, daily range): BP systolic 140–162; BP diastolic 61–72; PULSE 67–93; TEMP 36.7–36.9; O2SAT 90–93
[2024-11-28] MEDS: ALBUTEROL SULFATE 2.5 MG/3 ML VIAL NEB IH ×2 (05:23→11:04)
[2024-11-28 05:50] LABS: Basophils Percent Auto 0.4 % (0.2-2.0); Eosinophils Absolute Auto 0.2 10^3/uL (0.0-0.7); Eosinophils Percent Auto 2.4 % (0.9-7.0); Hematocrit 33.1 % (36.0-48.0); Hemoglobin 10.7 g/dL (12.0-16.0); Immature Granulocytes Abs Auto 0.21 10^3/uL (0.00-0.03); Lymphocytes Absolute Auto 1.4 10^3/uL (1.2-3.8); Lymphocytes Percent Auto 19.5 % (20.5-60.0); Mean Corpuscular HGB Conc 32.3 g/dL (29.9-35.2); Mean Corpuscular Hemoglobin 30.1 pg (26.7-34.0); Mean Platelet Volume 10.8 fL (9.5-13.5); Monocytes Absolute Auto 0.8 10^3/uL (0.3-0.8); Monocytes Percent Auto 11.7 % (1.7-12.0); Neutrophils Absolute Auto 4.5 10^3/uL (1.4-6.5); Platelet Count 227 10^3/uL (150-450); Red Blood Count 3.56 10^6/uL (4.20-5.40); Red Cell Distribution Width 14.9 % (11.0-15.0); White Blood Count 7.1 10^3/uL (4.0-11.0)
[2024-11-28 06:00] LABS: Alanine Aminotransferase 34 U/L (14-59); Albumin Globulin Ratio 0.7; Albumin Level 2.6 g/dL (3.4-5.0); Alkaline Phosphatase 100 U/L (46-116); Anion Gap 9.8; Aspartate Amino Transferase 26 U/L (15-37); BUN Creatinine Ratio 23.8; Bilirubin Total 0.4 mg/dL (0.2-1.0); Calcium 9.3 mg/dL (8.5-10.1); Carbon Dioxide 29.2 mmol/L (21.0-32.0); Chloride 109 mmol/L (98-107); Estimated GFR (African America 28 (>=60 mL/min/1.73m^2); Estimated GFR (Non-African Ame 23 (>=60 mL/min/1.73m^2); Globulin 3.6 g/dL; Glucose 159 mg/dL (74-106); Sodium 144 mmol/L (136-145); Total Protein 6.2 g/dL (6.4-8.2)
--- NOTE | 2024-11-28 09:29 | CM.NOTE ---
2nd Notice of Important Message From Medicare discussed with pt, pt denies any questions or concerns.
[2024-11-28] MEDS: ALLOPURINOL 100 MG TABLET PO (09:36)
[2024-11-28] MEDS: CARVEDILOL 6.25 MG TABLET PO (09:36)
[2024-11-28] MEDS: TRAMADOL HCL 50 MG TABLET PO (09:36)
[2024-11-28] MEDS: ATORVASTATIN CALCIUM 40 MG TABLET 80 MG PO (09:36)
[2024-11-28] MEDS: FAMOTIDINE 20 MG TABLET PO (09:36)
[2024-11-28] MEDS: ASPIRIN 81 MG TABLET.DR PO (09:36)
--- NOTE | 2024-11-28 10:45 | CM.NOTE ---
Rounds made with Dr. Zamora, pt will discharge to [facility] for skilled therapy today.
[2024-11-28] MEDS: FUROSEMIDE 40 MG TABLET 80 MG PO (10:47)
[2024-11-28] MEDS: HEPARIN SODIUM (PORCINE) 5,000 UNIT/ML VIAL 5000 UNIT SUBQ (10:47)
[2024-11-28] MEDS: ONDANSETRON PF 4 MG/2 ML VIAL IV (10:47)
--- NOTE | 2024-11-28 10:51 | PT.DAILY ---
Physical Therapy Daily Note PT Daily Note/Assess Start: 11/26/24 11:36 Freq: Status: Active Protocol: Document 11/28/24 10:45 CHRIS (Rec: 11/28/24 10:51 CHRIS [id number]) Physical Therapy Daily Note/Assessment Time In/Time Out Time In 09:58 Time Out 10:11 Pain In Pain N/A Pain Out Pain N/A Subjective Subjective Pt supine upon arrival. Agrees to PT. A bit of a stomach ache this morning but willing to try. Was just washed up by nursing and that took alot out of her. Therapeutic Exercise Time Therapeutic Exercise 3 Minutes (minutes) Therapeutic Exercise 0 Units Therapeutic Exercise Treatment Therapeutic Exercise Seated AP, LAQ, marches and add squeezes 10x in BS Treatment chair. Therapeutic Activity Time Therapeutic Activity 8 Minutes (minutes) Therapeutic Activity 1 Units Therapeutic Activity Treatment Bed Mobility Ability Moderate Assist Chair Transfer Minimum Assist Ability Therapeutic Activity Supine>sit ModA to advance upper body and R LE to EOB. Comments Pt able to maintain balance with bilat support but no outside assistance. Cont to demonstrate heavy cervical flexion/posture. Sit>stand Jose Carlos due to posterior LOB initially but able to correct and amb 3' and 2 side steps to BS chair using RW CGA. Seated ex complete once situated in BS chair. Pt remains in BS chair upon completion with call light within reach and needs met. Total Physical Therapy Time Total Therapy 11 Minutes Total Physical 1 Therapy Units Summary Daily Note Summary Improved transfer ability from bed to chair today but does need motivation for participation. Stomach ache persist.
[2024-11-28] MEDS: BUDESONIDE 0.5 MG/2 ML AMPULE NEB IH (11:04)
[2024-11-28 11:49] LABS: Glucometer 187 mg/dL (74-106)
--- NOTE | 2024-11-28 12:17 | SWNOTE1 ---
SW completed HENS and faxed over nv med rec to [place].
--- NOTE | 2024-11-28 12:21 | SWNOTE1 ---
Pt is stable for discharge today. AYAH spoke to pt's and pt they are agreeable for stretcher transporation. AYAH called and set up [facility] for 2:00. AYAH notified nurse, pt's and patient, and [place] of time. AYAH sent dc med rec to [place] and completed HENS. [facility].
--- NOTE | 2024-11-28 14:06 | P.DS_ITS ---
DS: Providers Provider Date of admission: 11/24/24 14:08 Primary care physician: SHANDA CLARK Consults: 11/24/24 13:38 Occupational Therapy Eval and Treat Routine Reason for consultation: weakness Has provider been notified: No Physical Therapy Eval and Treat Routine Reason for consultation: weakness Has provider been notified: No DS: Diagnosis Discharge Diagnosis (1) Urinary tract infection: Qualifiers: Hematuria presence: without hematuria Urinary tract infection type: acute cystitis Qualified Code(s): N30.00 - Acute cystitis without hematuria (2) RENÉ (acute kidney injury): (3) Diarrhea: Qualifiers: Diarrhea type: unspecified type Qualified Code(s): R19.7 - Diarrhea, unspecified (4) Visual hallucinations: (5) Acute metabolic encephalopathy: (6) 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 Qualified Code(s): I15.2 - Hypertension secondary to endocrine disorders (7) Diabetes: Qualifiers: Diabetes mellitus type: type 2 Diabetes mellitus 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 insulin use: with 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 use Diabetes mellitus complication status: with kidney complications Diabetes mellitus complication detail: with chronic kidney disease Chronic kidney disease stage: stage 3 (moderate) Chronic kidney disease stage 3 subtype: stage 3b (GFR 30-44) Qualified Code(s): E11.22 - Type 2 diabetes mellitus with diabetic chronic kidney disease; N18.32 - Chronic kidney disease, stage 3b; Z79.4 - assisted (current) use of insulin (8) COPD (chronic obstructive pulmonary disease): Qualifiers: COPD type: unspecified COPD Qualified Code(s): J44.9 - Chronic obstructive pulmonary disease, unspecified (9) Constipation due to opioid therapy: (10) CKD stage 3b, GFR 30-44 ml/min: (11) Chronic use of opiate drug for therapeutic purpose: (12) Lumbar stenosis with neurogenic claudication: DS: Summary Hospital Course Hospital Course: Reason for admission: See ER note and H&P for details. 84 y/o female to the ER after feeling confused and seeing people out of the corners of her eyes. She says the last few days it's hard for her to remember what shes doing. She was seen in the ER on 11/20/24 and diagnosed with UTI, cultures show ECOLI, she was treated with keflex. She has been having diarrhea about 3-4 times a day with accidents. In ER UA suggestive of UTI and admitted. Hospital course: Started patient on Rocephin and did well. New culture showed some Candidal but no new bacteria. She was treated with diflucan 150mg po x 1, along with Keflex 500mg BID x 7 days. Her renal ultrasound was normal. She was still weak and took assistance with getting out of bed. She will benefit from longterm for inpatient rehab. She will be transferred to the [facility] today for this. She will resume home medications with addition of the keflex for Ecoli UTI. She may return to the ER with any worsening signs or symptoms. Time Spent with Patient Time attestation: Total time spent providing and/or coordinating discharge services: Time spent: greater than 30 minutes Exam Constitutional Vital Signs, click to edit/add: Last Vital Signs Temp 98.1 F 11/28/24 08:00 Pulse 67 11/28/24 11:56 Resp 16 11/28/24 08:00 BP 140/72 11/28/24 08:00 Pulse Ox 92 L 11/28/24 11:09 O2 Del Method Room Air 11/28/24 11:09 Documenting provider has reviewed patient's vital signs: yes Common normals: no apparent distress, oriented x3 and alert HENMT Common normals: normocephalic Eye Common normals: PERRL and EOMs intact bilaterally Respiratory Common normals: normal respiratory effort and clear to auscultation bilaterally Cardio Common normals: regular rate, regular rhythm, no gallops, no murmurs and no rub GI Common normals: Normal to inspection, nondistended, normoactive bowel sounds present and non-tender Extremity Common normals: no pedal edema DS: Data Data Completed and Pending Labs on day of discharge: Labs from last 24 hours 11/28/24 11/28/24 11/27/24 11:46 05:30 21:07 WBC 7.1 RBC 3.56 L Hgb 10.7 L Hct 33.1 L MCV 93.0 MCH 30.1 MCHC 32.3 RDW 14.9 Plt Count 227 MPV 10.8 Neut % (Auto) 63.0 Lymph % (Auto) 19.5 L [place] % (Auto) 11.7 Eos % (Auto) 2.4 Baso % (Auto) 0.4 Neut # (Auto) 4.5 Lymph # (Auto) 1.4 [place] # (Auto) 0.8 Eos # (Auto) 0.2 Baso # (Auto) 0.0 Abs Immat Gran (auto) 0.21 H Imm/Tot Granulo (auto) 3.0 H Sodium 144 Potassium 4.0 Chloride 109 H Carbon Dioxide 29.2 Anion Gap 9.8 BUN 49.0 H Creatinine 2.06 H Est GFR ( Amer) 28 L Est GFR (Non-Af Amer) 23 L BUN/Creatinine Ratio 23.8 Glucose 159 H Calcium 9.3 Magnesium Total Bilirubin 0.4 AST 26 ALT 34 Alkaline Phosphatase 100 Total Protein 6.2 L Albumin 2.6 L Globulin 3.6 Albumin/Globulin Ratio 0.7 Lipase POC Glucose 187 H 152 H 11/27/24 11/27/24 16:56 16:19 WBC 8.2 RBC 3.82 L Hgb 11.5 L Hct 35.3 L MCV 92.4 MCH 30.1 MCHC 32.6 RDW 14.9 Plt Count 223 MPV 10.0 Neut % (Auto) 67.5 Lymph % (Auto) 18.3 L [place] % (Auto) 8.7 Eos % (Auto) 2.1 Baso % (Auto) 0.6 Neut # (Auto) 5.5 Lymph # (Auto) 1.5 [place] # (Auto) 0.7 Eos # (Auto) 0.2 Baso # (Auto) 0.1 Abs Immat Gran (auto) 0.23 H Imm/Tot Granulo (auto) 2.8 H Sodium 145 Potassium 4.2 Chloride 107 Carbon Dioxide 28.3 Anion Gap 13.9 BUN 46.0 H Creatinine 1.75 H Est GFR ( Amer) 34 L Est GFR (Non-Af Amer) 28 L BUN/Creatinine Ratio 26.3 Glucose 182 H Calcium 9.6 Magnesium 1.5 L Total Bilirubin AST ALT Alkaline Phosphatase Total Protein Albumin Globulin Albumin/Globulin Ratio Lipase 42.0 POC Glucose 173 H Preliminary micro results at discharge 11/24/24 11:21 Blood Culture Result 2 - Preliminary Blood - Left Forearm NO GROWTH AT 36-48 HOURS. FINAL TO FOLLOW. 11/24/24 10:58 Blood Culture Result 1 - Preliminary Blood - Left Antecubital NO GROWTH AT 36-48 HOURS. FINAL TO FOLLOW. Discharge Plan Discharge Disposition: Xfer SNF Condition: Fair Discharge Medications: New cephalexin 500 mg Capsule 500 mg PO BID 7 Days Qty: 14 0RF tramadol 100 mg capsule,ER biphase 24 hr 25-75 100 mg PO DAILY 5 Days Qty: 5 0RF Continued aspirin 81 mg tablet,delayed release (DR/EC) 81 mg PO DAILY atorvastatin 80 mg tablet 80 mg PO DAILY baclofen 10 mg tablet 10 mg PO .QHS insulin lispro 100 unit/mL insulin pen 6 unit subcut BIDWM theophylline 400 mg tablet extended release 24 hr 400 mg PO .QHS carvedilol 6.25 mg tablet 6.25 mg PO BID allopurinol 100 mg tablet 100 mg PO BID famotidine 20 mg tablet 20 mg PO BID montelukast 10 mg tablet 10 mg PO .QHS ramipril 10 mg capsule 10 mg PO .QHS levocetirizine 5 mg tablet 5 mg PO .QHS fluticasone furoate-vilanterol [Breo Ellipta] 200-25 mcg/dose blister with device 1 inh INHALATION Q24H pregabalin [Lyrica] 75 mg capsule 75 mg PO DAILY furosemide 40 mg tablet 80 mg PO BID insulin glargine [Lantus Solostar U-100 Insulin] 100 unit/mL (3 mL) insulin pen 46 unit SUBCUT .qhs tramadol 100 mg tablet extended release 24 hr 100 mg PO DAILY 5 Days Qty: 5 0RF Discontinued cephalexin 500 mg capsule 500 mg PO TID 7 Days Qty: 21 0RF Patient Comments: 11/20/24-11/27/24 Print Language: Setsw[place] 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
== END 2024-11-28 14:02 | DRG 689 ==
LOC: ER 13:43 → MS 11-27 13:01
PROVIDERS: Admitting Provider Family Medicine; Emergency Provider Emergency Medicine; PCP Family Medicine; Visit Provider Family Medicine
DX: N30.00 Acute cystitis without hematuria (principal); G93.41 Metabolic encephalopathy; N17.9 Acute kidney failure, unspecified; Z68.42 Body mass index [BMI] 45.0-49.9, adult; R44.1 Visual hallucinations; M47.812 Spondylosis without myelopathy or radiculopathy, cervical region; M47.816 Spondylosis without myelopathy or radiculopathy, lumbar region; M54.31 Sciatica, right side; E11.22 Type 2 diabetes mellitus with diabetic chronic kidney disease; N18.32 Chronic kidney disease, stage 3b; Z79.4 Long term (current) use of insulin; I12.9 Hypertensive chronic kidney disease with stage 1 through stage 4 chronic kidney disease, or unspecified chronic kidney disease; J44.9 Chronic obstructive pulmonary disease, unspecified; K21.9 Gastro-esophageal reflux disease without esophagitis; R19.7 Diarrhea, unspecified; M10.30 Gout due to renal impairment, unspecified site; Z87.442 Personal history of urinary calculi; E78.00 Pure hypercholesterolemia, unspecified; Z90.49 Acquired absence of other specified parts of digestive tract; Z90.710 Acquired absence of both cervix and uterus; B96.20 Unspecified Escherichia coli [E. coli] as the cause of diseases classified elsewhere; M48.062 Spinal stenosis, lumbar region with neurogenic claudication; Z66 Do not resuscitate; R40.0 Somnolence; B37.2 Candidiasis of skin and nail; G89.29 Other chronic pain; E66.9 Obesity, unspecified
CPT/HCPCS: 36415; 70450; 71045; 74019; 76775; 80048; 80053; 80076; 80198; 81001; 82948; 83036; 83690; 83735; 84443; 84484; 85025; 87040; 87045; 87046; 87086; 87427; 87493; 87804; 87811; 93005; 94640; 96365; 97110; 97161; 97165; 97530; 99285; J0131; J0360; J0696; J0780; J1644; J2060; J2405; J2550; J3475

== ENCOUNTER 2024-12-01 02:52 | Emergency (ER) | payer MEDICARE, SELFPAY ==
[2024-12-01] VITALS (33 sets, daily range): BP systolic 104–141; BP diastolic 53–72; PULSE 60–84; TEMP 36.7–36.9; O2SAT 89–96; BMI 47.0
--- NOTE | 2024-12-01 02:59 | ED.GENADUL1 ---
HPI HPI - General Adult General Chief complaint: Altered Mental Status Stated complaint: FALL Time Seen by Provider: 12/01/24 02:59 History of Present Illness HPI narrative: The patient is an 84-year-old female who presents to the emergency department from the [facility]. The patient was discharged to the care of the [facility] approximately 2 days ago. Today, the patient had an unwitnessed fall at approximately 9 PM. They were then providing neurochecks to the patient. When the patient started not acting normal they decided to bring the patient to the emergency department for evaluation. The patient did not know what hospital she was out before that she was transferred to the [facility]. Patient states that she does not have any children whom help with her medical care medical decisions. The patient states that her neck and shoulders feel strange . And she states her bilateral lower legs are achy. Patient has no other complaints at this time. The [facility] contacted the room nurse for the patient prior to her arrival. They indicated that they did not have a good baseline level on this patient because she had just arrived to their facility. So they do not have an established baseline on this patient either. The patient is apparently at the [facility] recovering from a tract infection and acute kidney injury. Related Data Home Medications ?Medication ?Instructions ?Recorded ?Confirmed aspirin 81 mg tablet,delayed 81 mg PO DAILY 04/26/23 11/24/24 release atorvastatin 80 mg tablet 80 mg PO DAILY 04/26/23 11/24/24 baclofen 10 mg tablet 10 mg PO .QHS 04/26/23 11/24/24 insulin lispro 100 unit/mL 6 unit subcut BIDWM 04/26/23 11/24/24 subcutaneous pen theophylline 400 mg 400 mg PO .QHS 04/26/23 11/24/24 tablet,extended release 24 hr allopurinol 100 mg tablet 100 mg PO BID 11/24/24 11/24/24 carvedilol 6.25 mg tablet 6.25 mg PO BID 11/24/24 11/24/24 famotidine 20 mg tablet 20 mg PO BID 11/24/24 11/24/24 fluticasone furoate 200 1 inh inhalation Q24H 11/24/24 11/24/24 mcg-vilanterol 25 mcg/dose inhalation powder (Breo Ellipta) furosemide 40 mg tablet 80 mg PO BID 11/24/24 11/24/24 insulin glargine 100 unit/mL (3 46 unit subcut .qhs 11/24/24 11/24/24 mL) subcutaneous pen (Lantus Solostar U-100 Insulin) levocetirizine 5 mg tablet 5 mg PO .QHS 11/24/24 11/24/24 montelukast 10 mg tablet 10 mg PO .QHS 11/24/24 11/24/24 pregabalin 75 mg capsule (Lyrica) 75 mg PO DAILY 11/24/24 11/24/24 ramipril 10 mg capsule 10 mg PO .QHS 11/24/24 11/24/24 Previous Rx's ?Medication ?Instructions ?Recorded cephalexin 500 mg capsule 500 mg PO BID 7 days #14 caps 11/27/24 tramadol 100 mg capsule 100 mg PO DAILY 5 days #5 caps 11/28/24 24h,extended release(25-75) tramadol 100 mg tablet,extended 100 mg PO DAILY 5 days #5 tabs 11/28/24 release 24 hr Allergies Allergy/AdvReac Type Severity Reaction Status Date / Time adhesive tape Allergy Unknown rash Verified 11/20/24 03:48 povidone-iodine (From Allergy Unknown Rash Verified 11/20/24 03:48 Betadine) red dye Allergy Unknown Rash Verified 11/20/24 03:48 Sulfa (Sulfonamide Allergy Unknown Rash Verified 11/20/24 03:48 Antibiotics) tetracycline Allergy Unknown Rash Verified 11/20/24 03:48 Opioid HPI Opioid Management Most Recent Opioid Data: Last Pain Scale 4 11/28/24 09:36 11/28/24 Last Pain Intensity 4 11/27/24 11:35 11/27/24 Last Pain Assessment 11/28/24 13:00 Last ORT Total Score 0 11/24/24 14:25 11/24/24 Last ORT Risk Category Low Risk 11/24/24 14:25 11/24/24 Review of Systems ROS Status of ROS 10 or more systems reviewed and unremarkable except as noted in history and below [facility] Medical History Chronic prescription opiate use ?Z79.891 - retirement (current) use of opiate analgesic (ICD-10) Lumbar radiculopathy, chronic ?M54.16 - Radiculopathy, lumbar region (ICD-10) Complication of electrolyte disorder ?E87.8 - Other disorders of electrolyte and fluid balance, not elsewhere classified (ICD-10) Concussion ?S06.0XAA - Concussion with loss of consciousness status unknown, initial encounter (ICD-10) Bilateral knee pain ?M25.561 - Pain in right knee (ICD-10) ?M25.562 - Pain in left knee (ICD-10) Muscle spasm ?M62.838 - Other muscle spasm (ICD-10) Lumbar spondylosis ?M47.816 - Spondylosis without myelopathy or radiculopathy, lumbar region (ICD-10) Knee osteoarthritis ?M17.9 - Osteoarthritis of knee, unspecified (ICD-10) Chronic kidney disease ?N18.9 - Chronic kidney disease, unspecified (ICD-10) Acute neck pain ?M54.2 - Cervicalgia (ICD-10) Head injury due to trauma ?S09.90XA - Unspecified injury of head, initial encounter (ICD-10) Urinary tract infection ?N39.0 - Urinary tract infection, site not specified (ICD-10) GERD without esophagitis ?K21.9 - Gastro-esophageal reflux disease without esophagitis (ICD-10) Gout due to renal impairment ?M10.30 - Gout due to renal impairment, unspecified site (ICD-10) Osteoarthritis ?M19.90 - Unspecified osteoarthritis, unspecified site (ICD-10) Anemia ?D64.9 - Anemia, unspecified (ICD-10) Carpal tunnel syndrome ?G56.00 - Carpal tunnel syndrome, unspecified upper limb (ICD-10) Acid reflux ?K21.9 - Gastro-esophageal reflux disease without esophagitis (ICD-10) Cirrhosis of liver ?K74.60 - Unspecified cirrhosis of liver (ICD-10) Kidney stone ?N20.0 - Calculus of kidney (ICD-10) Kidney failure ?N19 - Unspecified kidney failure (ICD-10) Asthma ?J45.909 - Unspecified asthma, uncomplicated (ICD-10) High cholesterol ?E78.00 - Pure hypercholesterolemia, unspecified (ICD-10) Surgical History History of appendectomy ?Z90.49 - Acquired absence of other specified parts of digestive tract (ICD-10) History of hysterectomy ?Z90.710 - Acquired absence of both cervix and uterus (ICD-10) History of neck surgery ?Z98.890 - Other specified postprocedural states (ICD-10) Hx of cholecystectomy ?Z90.49 - Acquired absence of other specified parts of digestive tract (ICD-10) History of lumbar laminectomy ?Z98.890 - Other specified postprocedural states (ICD-10) History of cardiac cath ?Z98.890 - Other specified postprocedural states (ICD-10) Family History Father Family history of CHF (congestive heart failure) Family history of COPD (chronic obstructive pulmonary disease) Family history of cancer Family history of diabetes mellitus Family history of hypertension Mother Family history of diabetes mellitus Family history of hypertension Family history of myocardial infarction Sister Family history of myocardial infarction Social History Within the past year, how often did you have a drink containing alcohol: never Score interpretation: A score less than 3 is consistent with normal alcohol consumption. Smoking status: Never smoker Non-prescribed substance use: denies use Previous occupational history: retired Highest level of school completed/degree received: some college, no degree Are you now , , , , never or living with a partner: Little interest or pleasure in doing things: not at all Feeling down, depressed, or hopeless: not at all Exam Narrative Exam Narrative: Prior to examining the patient, I have washed with hospital approved and provided Antiseptic Hand Printer Maintainer and have also applied gloves.? Prior to touching the patient, I asked for consent to examine the patient.? General: Alert and oriented to self, place, and birthdate. Patient however does not know a lot of details, well nourished, mild distress. No evidence of scalp or head injury. Eye: PERRL, EOMI, normal conjunctiva. The patient's right pupil appears teardrop shaped. HENT: Normocephalic, normal hearing, moist oral mucosa, no scleral icterus, no sinus tenderness. Patient has her own teeth. Tympanic membranes are not red, dull, bulging Neck: Supple, non-tender, no carotid bruits, no JVD, no lymphadenopathy. Lungs: Clear to auscultation and percussion, non-labored respiration. No rhonchi, rales, wheezing Heart: Normal rate, regular rhythm, no murmur, gallop or edema. Abdomen: Soft, non-tender, non-distended, normal bowel sounds, no masses. Increased BMI. Genitourinary: Patient has normal external female genitalia. There is some mild hyperemia and tenderness. Musculoskeletal: Normal range of motion and strength, no tenderness or swelling. Skin: Skin is warm, dry and pink, no rashes or lesions. Patient has evidence of chronic venous stasis changes bilateral lower extremities Neurologic: Awake, alert, and oriented X3, CN II-XII intact. Psychiatric: Cooperative, appropriate mood and affect.? Following the conclusion of the examination, I have washed my hands thoroughly after removing examination gloves. Constitutional Vital Signs, click to edit/add: Last Vital Signs Temp 98.4 F 12/01/24 03:34 Pulse 60 12/01/24 06:00 Resp 15 12/01/24 06:00 BP 104/53 12/01/24 06:00 Pulse Ox 92 L 12/01/24 06:00 O2 Del Method Room Air 12/01/24 02:59 Course Course Hospital Course: Patient was seen and evaluated in the emergency department for altered mental status. The patient had apparently fallen at 08:15 this morning. Patient had no complaints in the emergency department. It was noted that the more the patient interacted the more she became alert. This leads me to believe that the patient is exhausted and requires some time to wake up. When they were doing their neurochecks on the patient she likely appeared altered because they were waking her up to do neurochecks and it takes her some time to awaken to interact. I was participating in the quick cath of the patient and she was conversational stating thank you and could tell us a little bit about her bathroom habits and how she needs assistance etc. She was comprehending everything well and sharing information on a high-level basis. The patient may have been tired or she may have been a little concussed but there is no indication for readmission at this time. She has a very mild leukocytosis at what I believe is attributed to demargination from the fall there is no evidence of any new infection. She has clear skin. Her urine is improving. The chest x-ray does not support any pulmonary type process. The patient is not continuing to act septic or have any meningeal type signs. So I believe that the patient can return back to the [facility] for continued care. Vital Signs Vital signs: Vital Signs Temperature 98.1 F 12/01/24 02:59 Pulse Rate 79 12/01/24 02:59 Respiratory Rate 14 12/01/24 02:59 Blood Pressure 141/70 12/01/24 02:59 Pulse Oximetry 92 L 12/01/24 02:59 Oxygen Delivery Method Room Air 12/01/24 02:59 Temperature 98.4 F 12/01/24 03:34 Pulse Rate 60 12/01/24 06:00 Respiratory Rate 15 12/01/24 06:00 Blood Pressure 104/53 12/01/24 06:00 Pulse Oximetry 92 L 12/01/24 06:00 Oxygen Delivery Method Room Air 12/01/24 02:59 Medical Decision Making Medical Records Medical records reviewed: Yes I reviewed the patient's medical records Lab Data Lab results reviewed: Yes I reviewed the patient's lab results Labs: Lab Results 12/01/24 12/01/24 12/01/24 Range/Units 03:42 03:50 04:15 WBC 11.4 H (4.0-11.0) 10^3/uL RBC 3.83 L (4.20-5.40) 10^6/uL Hgb 11.4 L (12.0-16.0) g/dL Hct 36.2 (36.0-48.0) % MCV 94.5 (81.0-99.0) fL MCH 29.8 (26.7-34.0) pg MCHC 31.5 (29.9-35.2) g/dL RDW 15.0 (11.0-15.0) % Plt Count 243 (150-450) 10^3/uL MPV 10.6 (9.5-13.5) fL Neut % (Auto) 67.5 (43.0-75.0) % Lymph % (Auto) 17.5 L (20.5-60.0) % [place] % (Auto) 11.1 (1.7-12.0) % Eos % (Auto) 2.5 (0.9-7.0) % Baso % (Auto) 0.4 (0.2-2.0) % Neut # (Auto) 7.7 H (1.4-6.5) 10^3/uL Lymph # (Auto) 2.0 (1.2-3.8) 10^3/uL [place] # (Auto) 1.3 H (0.3-0.8) 10^3/uL Eos # (Auto) 0.3 (0.0-0.7) 10^3/uL Baso # (Auto) 0.0 (0.0-0.1) 10^3/uL Abs Immat Gran (auto) 0.11 H (0.00-0.03) 10^3/uL Imm/Tot Granulo (auto) 1.0 H (0.0-0.5) % Sodium 142 (136-145) mmol/L Potassium 3.9 (3.5-5.1) mmol/L Chloride 105 (98-107) mmol/L Carbon Dioxide 32.3 H (21.0-32.0) mmol/L Anion Gap 8.6 BUN 49.0 H (7.0-18.0) mg/dL Creatinine 2.62 H (0.55-1.02) mg/dL Est GFR ( Amer) 21 L (>=60 mL/min/1.73m^2) Est GFR (Non-Af Amer) 17 L (>=60 mL/min/1.73m^2) BUN/Creatinine Ratio 18.7 Glucose 148 H (74-106) mg/dL Lactate 1.5 (0.4-2.0) mmol/L Calcium 9.5 (8.5-10.1) mg/dL Magnesium 1.9 (1.8-2.4) mg/dL Total Bilirubin 0.5 (0.2-1.0) mg/dL AST 29 (15-37) U/L ALT 34 (14-59) U/L Alkaline Phosphatase 109 (46-116) U/L Total Protein 6.5 (6.4-8.2) g/dL Albumin 2.9 L (3.4-5.0) g/dL Globulin 3.6 g/dL Albumin/Globulin Ratio 0.8 Urine Color Lt. yellow (YELLOW) Urine Clarity Clear (CLEAR) Urine pH 6.0 (5.0-9.0) Ur Specific [place] 1.020 (1.005-1.025) Urine Protein 100 A (NEG/TRACE) mg/dL Urine Glucose (UA) Negative (NEGATIVE) mg/dL Urine Ketones Negative (NEGATIVE) mg/dL Urine Occult Blood Trace-i (NEGATIVE) Urine Nitrite Negative (NEGATIVE) Urine Bilirubin Negative (NEGATIVE) Urine Urobilinogen 0.2 (0.2-1.0) EU/dL Ur Leukocyte Esterase Small A (NEGATIVE) Urine RBC 2-5 A (0-2) #/HPF Urine WBC 10-20 A (NONE SEEN) #/HPF Ur Squamous Epith Cells Rare (NONE/RARE) #/LPF Urine Crystals Seen A (None Seen) #/HPF Amorphous Sediment Many Urine Bacteria Small A (NONE SEEN) #/HPF Urine Casts None seen (NONE SEEN) #/LPF Urine Mucus None seen (NONE SEEN) Ur Culture Indicated? Yes Influenza Type A Ag Negative Influenza Type B Ag Negative RSV Antigen Not detected (NOT DETECTE) SARS-CoV-2 Ag (CV2AG) Negative (NEGATIVE) Imaging Data Chest x-ray: Radiologist's impression: ITS Impressions Cervical Spine CT 12/01/24 03:01 IMPRESSION: 1. Allowing for extensive Beam hardening artifacts, there is no change as compared to the prior examination demonstrating multilevel degenerative changes as well as multilevel post surgical changes. Electronically authenticated by: ANUJA MENDIETA Date: 12/01/2024 03:49 Chest X-Ray 12/01/24 03:01 IMPRESSION: Nonacute chest. Electronically authenticated by: AYAAN ROB Date: 12/01/2024 03:[address] 12/01/24 03:01 IMPRESSION: 1. No acute intracranial abnormality. 2. Right maxillary sinus disease. Please correlate for acute sinusitis. 3. Stable prominence of the ventricular system which can be seen with normal pressure hydrocephalus. Electronically authenticated by: Steve GONZALEZ Date: 12/01/2024 03:44 ECG Data Attestation: I personally reviewed and interpreted this ECG as follows: Prior ECG tracings: not available for review Interpretation: Twelve-lead EKG: Twelve-lead EKG reveals a sinus rhythm with a ventricular rate of 83 bpm. The ME interval is normal at oh 162 ms. QRS duration is prolonged at 142 ms. The patient has evidence of a right bundle branch block. QTc is not prolonged. Patient has no evidence of ST segment elevation or depression suggestive infarction or ischemia. Summary: Abnormal EKG that is nonspecific. Discharge Plan Discharge Chief Complaint: Altered Mental Status Clinical Impression: Unwitnessed fall, Transient confusion Patient Disposition: Home, Self-Care Time of Disposition Decision: 06:23 Condition: Good Mode of Transportation: EMS Prescriptions / Home Meds: No Action aspirin 81 mg tablet,delayed release (DR/EC) 81 mg PO DAILY atorvastatin 80 mg tablet 80 mg PO DAILY baclofen 10 mg tablet 10 mg PO .QHS insulin lispro 100 unit/mL insulin pen 6 unit subcut BIDWM theophylline 400 mg tablet extended release 24 hr 400 mg PO .QHS carvedilol 6.25 mg tablet 6.25 mg PO BID allopurinol 100 mg tablet 100 mg PO BID famotidine 20 mg tablet 20 mg PO BID montelukast 10 mg tablet 10 mg PO .QHS ramipril 10 mg capsule 10 mg PO .QHS levocetirizine 5 mg tablet 5 mg PO .QHS fluticasone furoate-vilanterol [Breo Ellipta] 200-25 mcg/dose blister with device 1 inh INHALATION Q24H pregabalin [Lyrica] 75 mg capsule 75 mg PO DAILY furosemide 40 mg tablet 80 mg PO BID insulin glargine [Lantus Solostar U-100 Insulin] 100 unit/mL (3 mL) insulin pen 46 unit SUBCUT .qhs cephalexin 500 mg Capsule 500 mg PO BID 7 Days Qty: 14 0RF tramadol 100 mg tablet extended release 24 hr 100 mg PO DAILY 5 Days Qty: 5 0RF tramadol 100 mg capsule,ER biphase 24 hr 25-75 100 mg PO DAILY 5 Days Qty: 5 0RF Print Language: Peruvian Instructions: Fall Prevention for Older Adults (ED), Altered Mental Status (ED) Additional Instructions: No change in the patient's medication. She may continue her antibiotic. Referrals: SHANDA CLARK [Primary Care Provider] - 1 week Procedures ED Procedure Instructions Procedures Procedures: Patient had a quick cath by the room nurse.
--- NOTE | 2024-12-01 03:01 | CT_ITS ---
The [address] [address] Patient Name: DAVID DUGAN MRN: [id number] date: 1940 Sex: F Assigned Patient Location: ER Current Patient Location: Accession/Order Number: [id number] Exam Date: 12/01/2024 03:20 Report Date: 12/01/2024 03:49 At the request of: ALEJANDRA FORTUNE Procedure: CT cervical spine wo con EXAM: CT cervical spine wo con CT cervical spine wo con INDICATION: 84 years old; Female . CLINICAL HISTORY: unwitnessed fall TECHNIQUE: CT imaging of the cervical spine was performed. IV contrast: None. Dose reduction techniques were achieved by using automated exposure control and/or adjustment of mA and/or kV according to patient size and/or use of iterative reconstruction technique. COMPARISON: Cervical CT Dated 02/15/2024. FINDINGS: POSTOPERATIVE CHANGES: No change in the appearance of multilevel cervical fusion with trabeculated fusion across the disc spaces as well as the anterior aspect of the vertebral bodies at the levels of C5, C6, and C7. No change in the appearance of posterior laminectomy defects extending from C3 to C4 through C6-C7. There is no solid fusion at the C3-C4 or C4-C5 levels. This is also unchanged. ALIGNMENT: Nonspecific straightening of the normal cervical curve. This is unchanged from prior. COMPRESSION FRACTURES: Generalized bony demineralization. No fracture or vertebral body collapse. No bone destruction. No asymmetric widening of the facets. PREVERTEBRAL SOFT TISSUES: Normal. CRANIOCERVICAL JUNCTION: There is a normal relationship of the occipital condyles, lateral masses of C1, and articular surfaces of C2. The base of the dens and body of C2 are intact. There is narrowing of the predental space with spurring arising from the anterior arch of C1 and the tip of the dens. POSTERIOR FOSSA: The cerebellar tonsils are above the foramen magnum. There is thickening and calcification of the transverse ligament unchanged from prior. Disc levels: C2-C3: Facet degeneration. Central canal patent. Neural foramina patent. C3-C4: Facet degeneration. Grade 1 degenerative spondylolisthesis. Central canal patent. Vertebral joint degeneration the right with moderate right-sided foraminal stenosis. C4-C5: Postoperative changes. Posterior decompression of the canal. Anterior osteophytes. Disc space narrowing. Vertebral endplate degeneration. Uncovertebral joint degeneration. Moderate right and severe left foraminal stenosis. C5-C6: Extensive Beam hardening artifacts. Canal is decompressed posteriorly. Anterior osteophyte formation. Fusion of the endplates. Neural foramina patent. C6-C7: Disc space narrowing. Fusion of the endplates. Laminectomy defect. Uncovertebral joint degeneration. Central canal patent. Neural foramina patent. C7-T1: Disc space narrowing. Vertebral endplate degeneration. Beam hardening artifacts. Central canal and neural foramina are grossly patent. UPPER THORACIC SPINE: At T1-T2 and T2-T3, extensive Beam hardening artifacts. Disc space narrowing with endplate sclerosis and osteophytes at T1-T2. Central canal patent. Mild to moderate bilateral foraminal stenosis at T1-T2. OTHER: No thyroid nodule or adenopathy. CT/CT cervical spine wo con IMPRESSION: 1. Allowing for extensive Beam hardening artifacts, there is no change as compared to the prior examination demonstrating multilevel degenerative changes as well as multilevel post surgical changes. Electronically authenticated by: ANUJA MENDIETA Date: 12/01/2024 03:49
--- NOTE | 2024-12-01 03:01 | XR_ITS ---
The [place] [id number] Patient Name: DAVID DUGAN MRN: [id number] date: 1940 Sex: F Assigned Patient Location: ER Current Patient Location: ER Accession/Order Number: [id number] Exam Date: 12/01/2024 03:20 Report Date: 12/01/2024 03:45 At the request of: ALEJANDRA FORTUNE Procedure: XR chest 1V EXAM: XR chest 1V HISTORY: cough COMPARISON: Chest x-ray, 11/24/2024. TECHNIQUE: AP upright chest x-ray. FINDINGS: The heart, mediastinum and pulmonary vascularity are within normal limits. The lungs and pleural spaces are clear. There is very mild asymmetric elevation of the right diaphragm. No acute osseous injury is seen. XR/XR chest 1V IMPRESSION: Nonacute chest. Electronically authenticated by: AYAAN ROB Date: 12/01/2024 03:45
--- NOTE | 2024-12-01 03:01 | CT_ITS ---
The [address] [address] Patient Name: DAVID DUGAN MRN: [id number] date: 1940 Sex: F Assigned Patient Location: ER Current Patient Location: ER Accession/Order Number: [id number] Exam Date: 12/01/2024 03:20 Report Date: 12/01/2024 03:44 At the request of: ALEJNADRA FORTUNE Procedure: CT head/brain wo con EXAM: CT head/brain wo con HISTORY: unwitnessed fall COMPARISON: CT head examination dated 11/24/2024. TECHNIQUE: Noncontrast axial CT images through the head were obtained with coronal and sagittal reformats. Dose reduction techniques were achieved by using automated exposure control and/or adjustment of mA and/or kV according to patient size and/or use of iterative reconstruction technique. FINDINGS: There is generalized volume loss. There is decreased attenuation within the periventricular, deep, and subcortical white matter suggestive of chronic microvascular ischemic changes. Again seen is prominence of the ventricular system out of proportion to the volume loss. There is no evidence of intracranial hemorrhage, mass, or midline shift. No extra-axial fluid collection is seen. There is near complete opacification of the right maxillary sinus with fluid. Otherwise, the visualized paranasal sinuses and mastoid air cells are clear. No skull abnormalities are identified. CT/CT head/brain wo con IMPRESSION: 1. No acute intracranial abnormality. 2. Right maxillary sinus disease. Please correlate for acute sinusitis. 3. Stable prominence of the ventricular system which can be seen with normal pressure hydrocephalus. Electronically authenticated by: Steve GONZALEZ Date: 12/01/2024 03:44
--- NOTE | 2024-12-01 03:01 | ECG_ITS ---
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
--- OUTSIDE RECORDS SUMMARY | 2024-12-01 03:08 | XMS_ITS | CCD ---
Author Organization [facility] Care Team Providers Care Grand Scribe Name Role Phone ROBERTO PARHAMAB A Attending [...] ., DR LUISA Page Admitting Unavailable Furlong DO Fernie G Primary Care Provider MOE PARHAM Attending Unavailable DARELL SYLVESTER Attending Unavailable Furlong, DO Enciso Primary Care Provider MD Gia Munoz Attending Provider FURLONG, FERNIE Ricketts Attending Unavailable FURLONG, FERNIE G Referring Unavailable FURLONG, FERNIE G Primary Care Unavailable FURLONG, FERNIE G Attending Unavailable FURLONG, FERNIE G Referring Unavailable [...] RAND, Andgolden Rodríguez Attending Unavailable Kirsten RAND, Nenarius Rodríguez Attending Unavailable Kirsten RAND, Christian Rodríguez Attending Unavailable Furlong Fernie CAMACHO Primary Care Provider Gaetano Viera DO Attending Provider Unavailab le TRACYLONG, FERNIE Ricketts Referring Unavailable FURLONG, FERNIE G [...] Care Unavailable TAMMY, GIA Referring Unavailable FURLONG, FENRIE Ricketts Primary Care Unavailable FURLONG, FERNIE Ricketts [...] Unavailable DANIEL GUERRERO Attending Unavailable FURLONG, FERNIE Jamarcus Referring Unavailable FURLONG, FERNIE G Primary Care [...] FURLONG, FERNIE G Primary Care Unavailable FURLONG, FRENIE G Referring Unavailable FURLONG, FERNIE G Primary Care Unavailable TAMMY, GIA Referring Unavailable FURLONG, FERNIE G Primary Care Unavailable FURLONG, FERNIE G Referring Unavailable FURLONG, FERNIE G Primary Care Unavailable Furlong, Fernie Primary Care Unavailable Gaetano Viera Attending Unavailable Gaetano Viera Admitting Unavailable Allergies Allergy Classification Reported Allergen(s) Allergy Type Date of Onset Reaction(s) Facility Adhesive Tape (1 source) Adhesive Tape Substance Allergy 04-24-20 13 [facility] Repository Povidone-Iodine (1 source) Povidone-Iodine Drug Allergy 04-24-20 13 [facility] Sulfonamides (antibiotic) (1 source) Sulfonamides (Antibiotic) Drug Allergy 04-24-20 13 [facility] Tetracyclines (antibiotic) (1 source) Tetracyclines Drug Allergy 04-24-20 13 [facility] Rep[facility] (20 sources) Povidone-Iodine; Translations: [POVIDONE-IODINE] Drug Allergy 11-25-19 15 rash [facility] [employer] Other (10 sources) Sulfonamides (Antibiotic) Propensity to adverse reactions [facility] [employer] Other (13 sources) Tetracycline Drug Allergy 11-16-19 24 [facility] (12 sources) Adhesive 1 x6yd Drug allergy 11-08-20 23 [facility] (12 sources) Amlodipine & Diet Manage Prod Drug allergy 11-08-20 23 [facility] (2 sources) Povidone-Iodine; Translations: [Betadine] Drug Allergy 04-23-20 13 rash [facility] Repository (20 sources) Contrast media; Translations: [RED DYE] Drug allergy (disorder) 05-04-20 17 Rash [facility] Repository (4 sources) Desonide Drug Allergy 04-23-20 13 Rash [facility] Repository (1 source) Sulfonamides (Antibiotic) Drug allergy (disorder) 04-23-20 13 [facility] Repository (1 source) Tetracycline Drug Allergy 04-23-20 13 [facility] Rep[facility] (20 sources) Adhesive agent; Translations: [ADHESIVE] Propensity to adverse reactions to drug 11-25-19 15 Other (See Comments), Itching [facility] (20 sources) dilTIAZem; Translations: [DILTIAZEM] Drug Allergy 09-01-20 [facility] Work Phone: (20 sources) Linagliptin; Translations: [LINAGLIPTIN] Drug Allergy 09-01-20 [facility] (20 sources) Sulfonamides (Antibiotic); Translations: [SULFA (SULFONAMIDE ANTIBIOTICS)] Propensity to adverse reactions to drug 11-25-19 15 [facility] (20 sources) Tetracycline (class of antibiotic); Translations: [TETRACYCLINES] Propensity to adverse reactions to drug 11-25-19 15 [facility] (20 sources) Adhesive Tape-Silicones; Translations: [ADHESIVE TAPE-SILICONES] Propensity to adverse reactions to drug 05-04-20 [facility] Work Phone: (20 sources) Sulfa Dyne; Translations: [SULFA DYNE] Propensity to adverse reactions to drug 09-14-20 [facility] Medications Current Medications Medication Drug Class(es) [...] as needed Orally TWICE A DAY Active [id number] 200 actuat albuterol 0.09 mg/actuat metered dose [...] morning. Active take 2 tablets by mo [facility] every twenty-four hours Allopurinol 100 MG [...] daily. Active take 1 capsule by mo [facility] every twenty-four hours Biotin Maximum Strength 5000 MCG 1 capsule Orally Once a day Active take 1 capsule by mo ut every twenty-four hours Biotin Maximum Strength 5000 MCG 1 capsule Orally Once a day Active blood-glucose meter (TRUE METRIX GLUCOSE METER) misc (3 sources) Start: 11-18-2024 blood-glucose meter (TRUE METRIX GLUCOSE METER) misc 1 Unit by miscellaneous route in the [...] sources) Start: 2023 diaper,brief,adult,disposabl e (ALWAYS DISCREET) misc Indications: Urinary incontinence, unspecified type 1 Unit by miscellaneous route every 2 (two) hours as needed (incontinence). 360 each 5 02/25/2024 Active 0.5 ml dulaglutide 1.5 mg/ml auto-injector (1 source) GLP-1 Receptor Agonist Trulicity 0.75 MG/0. 5ML as directed Subcutaneous ONCE A WEEK Active estrogens, conjugated (jail) 0.625 mg/ml vaginal cream (5 sources) Estrogen [...] April 30, 2024 11:00pm Fish,Bora,Flax Oils-Om3,6,9n o1 (Center 3-6-9) 1,200 mg capsule (2 sources) Start: 05-01-2024 Fish,Bora,Flax Oils-Om3,6,9no1 (Center 3-6-9) 1,200 mg capsule Active CAP PO April 30, 2024 11:00pm Start: 05-01-2024 Fish,Bora,Flax Oils-Om3,6,9no1 (Center 3-6-9) 1,200 mg capsule Active CAP PO [...] disease, with long-term current use of insulin ([facility]) Inject 46 Units under the skin in [...] 12:00am levocetirizine dihydrochloride 5 mg oral tablet (18 sources) Histamine-1 Receptor Antagonist Start: 08-28-2024 take [...] For Her 50 + - Orally Active cyjohshd-czdg-IA-calcium &mi ns (THERAGRAN-M) 9 mg iron-400 mcg tablet (20 sources) ffgiujfy-mqej-JX -calcium &mins (THERAGRAN-M) 9 mg iron-400 mcg tablet Take 1 tablet by mouth in the morning. Active tgpqsvve-uycg-GB -calcium &mins (THERAGRAN-M) 9 mg iron-400 mcg [...] TAB PO Daily May 01, 2024 12:00am Center 3-6-9 Complex - (10 sources) Center 3-6-9 Comp fawad - Orally Active omega-3 [...] 05/07/2023 Active take 1 capsule by mo [facility] every twenty-four hours Omeprazole 20 MG [...] water (40 mg/mL premix) Start: 01-02-2024 End: 02-21-2024 magnesium sulfate IVPB 2000 mg/50 mL in [...] Coronary atherosclerosis; Translations: [Atherosclerotic heart disease of [place] coronary artery without angina pectoris] Onset: 2 [...] metabolic disease] Episodic Other upper respiratory disease (13 sources) Perennial allergic rhinitis; Translations: [Other allergic [...] 09-01-2022 09-01-2022 Episodic Other aftercare (3 sources) 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; Translations: [[facility] CURRENT USE OF INSULIN] Onset: 11-11-2022 Episodic [...] Test Name Value Interpretation Reference Range Facility Urine Cultureon 11-20-2024 Bacteria identified Cx Nom (U) ORGANISM: Escherichia coli (O:ESCCOL) Daniel Count >100,000 Aerobic URBAN Charge (NMIC56) -- SUSCEPTIBILITY - ORGANISM: O:ESCCOL ANTIBIOTIC INTERPRETATION URBAN Amikacin S <16 Amoxacillin/K Clavulanate S <8 Ampicillin S <8 Ampicillin/Sulbactam S <4 Aztreonam S <4 Cefazolin S <2 Cefepime S <2 Ceftazidime S <1 Ceftazidime/Avibactam S <4 Ceftolozane/Tazobactam S <2 Ceftriaxone S <1 Cefuroxime S <4 Ciprofloxacin S <0.25 Ertapenem S <0.5 Gentamicin S <2 Levofloxacin S <0.5 Meropenem S <1 Meropenem/Vaborbactam S <2 Nitrofurantoin S <32 Piperacillin/Tazobactam S <8 Tetracycline S <4 Tigecycline S <2 Tobramycin S <2 Trimethoprim/Sulfametho xazole S <0.5 S = SUSCEPTIBLE I = INTERMEDIATE R = RESISTANT BLANK = DATA NOT AVAILABLE, OR DRUG NOT ADVISABLE OR TESTED R* = RESISTANCE DUE TO EXTENDED SPECTRUM BETA-LACTAMASES ESBL = EXTENDED SPECTRUM BETA-LACTAMASE TFG = THYMIDINE-DEPENDENT STRAIN RIVAS = BETA-LACTAMASE POSITIVE IB = INDUCIBLE BETA-LACTAMASE. APPEARS IN PLACE OF 'S' WITH SPECIES KNOWN TO POSSESS INDUCIBLE BETA-LACTAMASES. POTENTIALLY THEY MAY BECOME RESISTANT TO ALL B-LACTAM DRUGS. PERFORMED BY: [facility] [address] [place] [address] PATHOLOGIST ADJUNCT PHYSICS INSTRUCTOR MARIO PUTNAM M.D. Normal [facility] Comment on above: Performed By: #### C UU #### [facility] [address] [place] [address] [facility] MAGNESIUMon 11-17-2024 Magnesium [Mass/Vol] 1.8 mg/dL Normal 1.8-2.6 [facility] Comment on above: Performed By: #### 1 9123-9 ####[facility] ([id number])[address] [place] [address] MAGNESIUMon 11-10-2024 Magnesium [Mass/Vol] 1.8 mg/dL Normal 1.8-2.6 [facility] Comment on above: Performed By: #### 1 9123-9 ####[facility] ([id number])[address] [place] [address] 57308 MAGNESIUMon 11-03-2024 Magnesium [Mass/Vol] 1.7 mg/dL Low 1.8-2.6 [facility] Comment on above: Performed By: #### 1 9123-9 ####[facility] ([id number])[address] [place] [address] 84193 MAGNESIUMon 10-27-2024 Magnesium [Mass/Vol] 1.8 mg/dL Normal 1.8-2.6 [facility] Comment on above: Performed By: #### 1 9123-9 ####[facility] ([id number])[address] [place] [address] 38053 MAGNESIUMon 10-20-2024 Magnesium [Mass/Vol] 1.9 mg/dL Normal 1.8-2.6 [facility] Comment on above: Performed By: #### 1 9123-9 ####[facility] ([id number])[address] [place] [address] 87755 MAGNESIUMon 10-13-2024 Magnesium [Mass/Vol] 1.8 mg/dL Normal 1.8-2.6 [facility] Comment on above: Performed By: #### 1 9123-9 ####[facility] ([id number])[address] [place] [address] 45430 MAGNESIUMon 10-06-2024 Magnesium [Mass/Vol] 1.7 mg/dL Low 1.8-2.6 [facility] Comment on above: Performed By: #### 1 9123-9 ####[facility] ([id number])[address] [place] [address] 53510 MAGNESIUMon 09-29-2024 Magnesium [Mass/Vol] 1.7 mg/dL Low 1.8-2.6 [facility] Comment on above: Performed By: #### 1 9123-9 ####[facility] ([id number])[address] [place] [address] 96214 Glucose Glucometer (BldC) [M ass/Vol]on 09-26-2024 Glucose [Mass/Vol] 154 mg/dL High 65-99 [facility] Surgical Pathologyon 024 Surgical Pathology Normal [facility] Comment on above: Result Comment: [facility] [address] [place] [address] Surgical Pathology ConsultationPatient Name:ADORE DUGAN:1940 (Age: 83)Gender:FTaken:4Reported:4Physician(s):Daniel Guerrero MD ([phone])Copy To: Rec. #:[id number]: #[id number] Pathologic Diagnosis1. Duodenum, second portion, biopsy: Duodenal mucosa with no significant diagnostic abnormality. No evidence of celiac disease.2. Duodenum, bulb, biopsy: Ectopic gastric mucosa.3. Stomach, polypectomy: Fundic gland polyp.4. Esophagus, distal, biopsy: Junctional mucosa with no significant diagnostic abnormality. No evidence of intestinal metaplasia. Report Electronically Signed Outrg/4Rpaula Coto MDInterpretation performed at [facility], [address] [place] [address], License number: [id number].Clinical History Ross's esophagus.Gross Description1. Received in formalin labeled KUSS, second portion of duodenum are two light abbott soft tissue bits, 0.2 cm each. The specimen is filtered and entirely submitted in a single cassette. (1, ns, [id number],m3) DM.2. .Received in formalin labeled KUSS, duodenal bulb biopsies are three light abbott soft tissue bits, 0.2 cm each. The specimen is filtered and entirely submitted in a single cassette. (1, ns, [id number],m3) DM.3. Received in formalin labeled KUSS, fundic gland polyp is a light abbott soft tissue bit, 0.3 cm. The specimen is filtered and entirely submitted in a single cassette. (1, ns, [id number],m3) DM.4. Received in formalin labeled KUSS, distal esophageal biopsy are three pale-abbott soft tissue bits, 0.2 cm each. The specimen is filtered and entirely submitted in a single cassette. (1, ns, [id number],m3) DM.dm/09/27/2024GRSpecimen(s) Received1: Second portion of duodenum biopsies2: Duodenal bulb biopsy3: Fundic gland polyp4: Esophageal distal biopsyFee Codes(s):1; 158454; 453436; 586623; 07061 MAGNESIUMon 09-22-2024 Magnesium [Mass/Vol] 1.8 mg/dL Normal 1.8-2.6 [facility] Comment on above: Performed By: #### 1 9123-9 ####[facility] ([id number])[address] [place] [address] 49527 MAGNESIUMon 09-15-2024 Magnesium [Mass/Vol] 1.8 mg/dL Normal 1.8-2.6 [facility] Comment on above: Performed By: #### 1 9123-9 ####[facility] ([id number])[address] [place] [address] 39272 MAGNESIUMon 09-08-2024 Magnesium [Mass/Vol] 1.7 mg/dL Low 1.8-2.6 [facility] Comment on above: Performed By: #### 1 9123-9 ####[facility] ([id number])[address] [place] [address] 83359 MAGNESIUMon 09-01-2024 Magnesium [Mass/Vol] 1.8 mg/dL Normal 1.8-2.6 [facility] Comment on above: Performed By: #### 1 9123-9 ####[facility] ([id number])[address] [place] [address] 09053 MAGNESIUMon 08-25-2024 Magnesium [Mass/Vol] 1.6 mg/dL Low 1.8-2.6 [facility] Comment on above: Performed By: #### 1 9123-9 ####[facility] ([id number])[address] [place] [address] 17234 MAGNESIUMon 08-18-2024 Magnesium [Mass/Vol] 1.6 mg/dL Low 1.8-2.6 [facility] Comment on above: Performed By: #### 1 9123-9 ####[facility] ([id number])[address] [place] [address] 00077 MAGNESIUMon 08-11-2024 Magnesium [Mass/Vol] 1.6 mg/dL Low 1.8-2.6 [facility] Comment on above: Performed By: #### 1 9123-9 ####[facility] ([id number])[address] [place] [address] 65917 MAGNESIUMon 08-04-2024 Magnesium [Mass/Vol] 1.5 mg/dL Low 1.8-2.6 [facility] Comment on above: Performed By: #### 1 9123-9 ####[facility] ([id number])[address] [place] [address] 87765 MAGNESIUMon 07-28-2024 Magnesium [Mass/Vol] 1.5 mg/dL Low 1.8-2.6 [facility] Comment on above: Performed By: #### 1 9123-9 ####[facility] ([id number])[address] [place] [address] 71626 MAGNESIUMon 07-21-2024 Magnesium [Mass/Vol] 1.6 mg/dL Low 1.8-2.6 [facility] Comment on above: Performed By: #### 1 9123-9 ####[facility] ([id number])[address] [place] [address] 66590 MAGNESIUMon 07-15-2024 Magnesium [Mass/Vol] 1.5 mg/dL Low 1.8-2.6 [facility] Comment on above: Performed By: #### 1 9123-9 ####[facility] ([id number])[address] [place] [address] 78006 MAGNESIUMon 07-07-2024 Magnesium [Mass/Vol] 1.6 mg/dL Low 1.8-2.6 [facility] Comment on above: Performed By: #### 1 9123-9 ####[facility] ([id number])[address] [place] [address] 87273 MAGNESIUMon 06-30-2024 Magnesium [Mass/Vol] 1.6 mg/dL Low 1.8-2.6 [facility] Comment on above: Performed By: #### 1 9123-9 ####[facility] ([id number])[address] [place] [address] 26150 MAGNESIUMon 06-23-2024 Magnesium [Mass/Vol] 1.7 mg/dL Low 1.8-2.6 [facility] Comment on above: Performed By: #### 1 9123-9 ####[facility] ([id number])[address] [place] [address] 22868 MAGNESIUMon 06-16-2024 Magnesium [Mass/Vol] 1.7 mg/dL Low 1.8-2.6 [facility] Comment on above: Performed By: #### 1 9123-9 ####[facility] ([id number])[address] [place] [address] 66716 MAGNESIUMon 06-09-2024 Magnesium [Mass/Vol] 1.7 mg/dL Low 1.8-2.6 [facility] Comment on above: Performed By: #### 1 9123-9 ####[facility] ([id number])[address] [place] [address] 96184 MAGNESIUMon 06-02-2024 Magnesium [Mass/Vol] 1.6 mg/dL Low 1.8-2.6 [facility] Comment on above: Performed By: #### 1 9123-9 ####[facility] ([id number])[address] [place] [address] 07325 URINE CULTUREon 05-30-2024 Bacteria identified Cx Nom [...] F TRIMETH/SULFAMETHOXAZOL E S <=11/30 F Susceptible [facility] Comment on above: Performed By: #### 6 30-4 #### [facility] ([id number]) [address], [address] [place] [address] URINE CULTUREon 05-27-2024 Bacteria identified Cx Nom (U) CULTURE RESULTS MULTIPLE SPECIES PRESENT. PROBABLE COLLECTION CONTAMINATION. SUGGEST REPEAT SPECIMEN. Normal [facility] Comment on above: Performed By: #### 6 30-4 #### [facility] ([id number]) [address] [facility] [facility], [address] [place] [address] MAGNESIUMon 05-26-2024 Magnesium [Mass/Vol] 1.6 mg/dL Low 1.8-2.6 [facility] Comment on above: Performed By: #### 1 9123-9 ####[facility] ([id number])[address] [place] [address] 01175 MAGNESIUMon 05-19-2024 Magnesium [Mass/Vol] 1.7 mg/dL Low 1.8-2.6 [facility] Comment on above: Performed By: #### 1 9123-9 ####[facility] ([id number])[address] [place] [address] 07540 MAGNESIUMon 05-12-2024 Magnesium [Mass/Vol] 1.6 mg/dL Low 1.8-2.6 [facility] Comment on above: Performed By: #### 1 9123-9 ####[facility] ([id number])[address] [facility] [facility], [place] [address] MAGNESIUMon 05-05-2024 Magnesium [Mass/Vol] 1.4 mg/dL Low 1.8-2.6 [facility] Comment on above: Performed By: #### 1 9123-9 ####[facility] ([id number])[address] [place] [address] 31702 MAGNESIUMon 04-28-2024 Magnesium [Mass/Vol] 1.5 mg/dL Low 1.8-2.6 [facility] Comment on above: Performed By: #### 1 9123-9 ####[facility] ([id number])[address] [place] [address] 66012 COMPLETE BLOOD COUNTon 04-21 Erythrocyte distribution width (RBC) [Ratio] 16.6 % High 11.5-15.0 [facility] Comment on above: Performed By: #### C BC, UPCR, FEPR, , RENAL, 3084-1, 2276-4, 2731-8, 91716-5 ####[facility] ([id number])[address], [address] [place] [address]287 Hematocrit (Bld) [Volume fraction] 33.8 % Low 35-47 [facility] Comment on above: Performed By: #### C BC, UPCR, FEPR, , RENAL, 3084-1, 2276-4, 2731-8, 62939-0 ####[facility] ([id number])[address], [address], [place] [address] Hemoglobin (Bld) [Mass/Vol] 11.0 g/dL Low 11.7-15.5 [facility] Comment on above: Performed By: #### C BC, UPCR, FEPR, , RENAL, 3084-1, 2276-4, 2731-8, 19514-3 ####[facility] ([id number])[address], [address], [place] [address] MCH (RBC) [Entitic mass] 30.0 pg Normal 27-34 [facility] Comment on above: Performed By: #### C BC, UPCR, FEPR, 65085-5, RENAL, 3084-1, 2276-4, 2731-8, 60483-6 ####[facility] ([id number])[address], [address], [place] [address] MCHC (RBC) [Mass/Vol] 32.7 g/dL Normal 32-36 [facility] Comment on above: Performed By: #### C BC, UPCR, FEPR, 68708-5, RENAL, 3084-1, 2276-4, 2731-8, 71480-8 ####[facility] ([id number])[address] [address] [place] [address]214 MCV (RBC) [Entitic vol] 92 fL Normal 80-100 [facility] Comment on above: Performed By: #### C BC, UPCR, FEPR, 34741-0, RENAL, 3084-1, 2276-4, 2731-8, 66266-3 ####[facility] ([id number])[address] [address] [place] [address]109 Platelet mean volume (Bld) [Entitic vol] 9.5 fL Normal 7-12 [facility] Comment on above: Performed By: #### C BC, UPCR, FEPR, 69727-4, RENAL, 3084-1, 2276-4, 2731-8, 85575-0 ####[facility] ([id number])[address] [address] [place] [address] 16002 Platelets (Bld) [#/Vol] 182 10*3/uL Normal 150-450 [facility] Comment on above: Performed By: #### C BC, UPCR, FEPR, 57596-1, RENAL, 3084-1, 2276-4, 2731-8, 99334-4 ####[facility] ([id number])[address] [address], [place] [address] RBC COUNT 3.68 X10E12/L Low 3.80-5.20 [facility] Comment on above: Performed By: #### C BC, UPCR, FEPR, 92084-7, RENAL, 3084-1, 2276-4, 2731-8, 04132-3 ####[facility] ([id number])[address], [place] [address] WBC (Bld) [#/Vol] 6.2 10*3/uL Normal 4.0-11.0 [facility] Comment on above: Performed By: #### C BC, UPCR, FEPR, 04100-6, RENAL, 3084-1, 2276-4, 2731-8, 24568-1 ####[facility] ([id number])[address], [place] [address] FERRITINon 04-21-2024 Ferritin [Mass/Vol] 113 ng/mL Normal 11-307 [facility] Comment on above: Performed By: #### C BC, UPCR, FEPR, 98625-4, RENAL, 3084-1, 2276-4, 2731-8, 84455-7 ####[facility] ([id number])[address], [place] [address] IRON PROFILEon 04-21-2024 Iron [Mass/Vol] 56 ug/dL Normal 50-170 [facility] Comment on above: Performed By: #### C BC, UPCR, FEPR, 88486-4, RENAL, 3084-1, 2276-4, 2731-8, 24534-2 ####[facility] ([id number])[address], [place] [address] IRON BINDING 307 ug/dL Normal 250-425 [facility] Comment on above: Performed By: #### C BC, UPCR, FEPR, 67247-1, RENAL, 3084-1, 2276-4, 2731-8, 94592-0 ####[facility] ([id number])[address], [place] [address] IRON SATURATION 18 % SATURATION Normal 15-50 [facility] Comment on above: Performed By: #### C BC, UPCR, FEPR, 71677-0, RENAL, 3084-1, 2276-4, 2731-8, 15423-3 ####[facility] ([id number])[address], [address], [place] [address] MAGNESIUMon 04-21-2024 Magnesium [Mass/Vol] 1.4 mg/dL Low 1.8-2.6 [facility] Comment on above: Performed By: #### C BC, UPCR, FEPR, 45562-6, RENAL, 3084-1, 2276-4, 2731-8, 27606-5 ####[facility] ([id number])[address], [address] [place] [id number] PROTEIN CREAT RATIOon 2023 RANDOM URINE PROTEIN 470 mg/L High <120 [facility] Comment on above: Performed By: #### C BC, UPCR, FEPR, 03842-7, RENAL, 3084-1, 2276-4, 2731-8, 83420-0 ####[facility] ([id number])[address] [address] [place] [address] U/PRO/YARD PIPE GRADER RATIO CALC 0.50 High <0.2 [facility] Comment on above: Result Comment: Neph rotic Syndrome is associated with ratios >3.5 Performed By: #### C BC, UPCR, FEPR, 56639-4, RENAL, 3084-1, 2276-4, 2731-8, 45908-8 ####[facility] ([id number])[address], [address] [address], [place] [address] URINE CREATININE,RDM 94.29 mg/dL Normal [facility] Comment on above: Performed By: #### C BC, UPCR, FEPR, 21566-3, RENAL, 3084-1, 2276-4, 2731-8, 33292-9 ####[facility] ([id number])[address], [address], [place] [address] Parathyrin.intact [Mass/Vol] on 04-21-2024 PTH INTACT 168 pg/mL High 12-88 [facility] Comment on above: Performed By: #### C BC, UPCR, FEPR, 23132-6, RENAL, 3084-1, 2276-4, 2731-8, 39654-1 ####[facility] ([id number])[address], [address], [place] [address] RENAL PANELon 04-21-2024 Albumin [Mass/Vol] 3.7 g/dL Normal 3.2-5.3 [facility] Comment on above: Performed By: #### C BC, UPCR, FEPR, 43210-2, RENAL, 3084-1, 2276-4, 2731-8, 50676-5 ####[facility] ([id number])[address], [address], [place] [address] Anion gap [Moles/Vol] 11 mmol/L Normal 5-15 [facility] Comment on above: Performed By: #### C BC, UPCR, FEPR, 58572-6, RENAL, 3084-1, 2276-4, 2731-8, 10342-6 ####[facility] ([id number])[address], [address], [place] [address] Calcium [Mass/Vol] 8.9 mg/dL Normal 8.5-10.5 [facility] Comment on above: Performed By: #### C BC, UPCR, FEPR, 36677-7, RENAL, 3084-1, 2276-4, 2731-8, 76343-9 ####[facility] ([id number])[address], [address], [place] [address] Chloride [Moles/Vol] 106 mmol/L Normal 98-109 [facility] Comment on above: Performed By: #### C BC, UPCR, FEPR, 51971-3, RENAL, 3084-1, 2276-4, 2731-8, 18792-6 ####[facility] ([id number])[address], [address], [place] [address] CO2 [Moles/Vol] 26 mmol/L Normal 22-32 [facility] Comment on above: Performed By: #### C BC, UPCR, FEPR, 42702-7, RENAL, 3084-1, 2276-4, 2731-8, 65231-4 ####[facility] ([id number])[address], [address], [place] [address] Creatinine [Mass/Vol] 1.78 mg/dL High 0.40-1.00 [facility] Comment on above: Result Comment: METH OD TRACEABLE TO IDMS STANDARD Performed By: #### C BC, UPCR, FEPR, 76852-6, RENAL, 3084-1, 2276-4, 2731-8, 44132-0 ####[facility] ([id number])[address], [address] [place] [address] GFR/1.73 sq M.predicted among non-blacks MDRD (S/P/Bld) [Vol rate/Area] 28 mL/min/{1.73_m2} Low >59 [facility] Comment on above: Result Comment: Repo rted eGFR is based on theCKD-EPI 2020 equation that doesnot use a race coefficient. Performed By: #### C BC, UPCR, FEPR, 30116-8, RENAL, 3084-1, 2276-4, 2731-8, 89343-4 ####[facility] ([id number])[address], [address] [place] [address] Glucose [Mass/Vol] 157 mg/dL High 65-99 [facility] Comment on above: Performed By: #### C BC, UPCR, FEPR, 22026-0, RENAL, 3084-1, 2276-4, 2731-8, 18952-2 ####[facility] ([id number])[address], [address], [place] [address] Phosphate [Mass/Vol] 3.8 mg/dL Normal 2.4-4.9 [facility] Comment on above: Performed By: #### C BC, UPCR, FEPR, 30973-4, RENAL, 3084-1, 2276-4, 2731-8, 11315-7 ####[facility] ([id number])[address], [address], [place] [address] Potassium [Moles/Vol] 4.2 mmol/L Normal 3.5-5.0 [facility] Comment on above: Performed By: #### C BC, UPCR, FEPR, 29505-3, RENAL, 3084-1, 2276-4, 2731-8, 34920-9 ####[facility] ([id number])[address], [address], [place] [address] Sodium [Moles/Vol] 143 mmol/L Normal 134-146 [facility] Comment on above: Performed By: #### C BC, UPCR, FEPR, 75647-5, RENAL, 3084-1, 2276-4, 2731-8, 39259-2 ####[facility] ([id number])[address], [address], [place] [address] Urea nitrogen [Mass/Vol] 42 mg/dL High 5-27 [facility] Comment on above: Performed By: #### C BC, UPCR, FEPR, 83075-2, RENAL, 3084-1, 2276-4, 2731-8, 70579-0 ####[facility] ([id number])[address], [address], [place] [address] URIC ACIDon 04-21-2024 Urate [Mass/Vol] 4.3 mg/dL Normal 2.6-7.2 [facility] Comment on above: Performed By: #### C BC, UPCR, FEPR, 20659-4, RENAL, 3084-1, 2276-4, 2731-8, 67356-5 ####[facility] ([id number])[address], [address] [place] [address] URINALYSISon 04-21-2024 Bilirubin Ql (U) Negative Normal NEG [facility] Comment on above: Performed By: #### U A ####[facility] ([id number])[address], [address], [place] [address] BLOOD/HGB Trace Abnormal NEG [facility] Comment on above: Performed By: #### U A ####[facility] ([id number])[address], [address], [place] [address] Color (U) YELLOW Normal YELLOW [facility] Comment on above: Performed By: #### U A ####[facility] ([id number])[address], [address], [place] [address] Glucose Ql (U) Negative Normal NEG [facility] Comment on above: Performed By: #### U A ####[facility] ([id number])[address], [address] [place] [address] Ketones Ql (U) Negative Normal NEG [facility] Comment on above: Performed By: #### U A ####[facility] ([id number])[address], [address] [place] [address] Leukocyte esterase Test strip Ql (U) Large Abnormal NEG [facility] Comment on above: Performed By: #### U A ####[facility] ([id number])[address], [address] [place] [address] MUCOUS PRESENT Abnormal NONE [facility] Comment on above: Performed By: #### U A ####[facility] ([id number])[address] [address], [place] [address] Nitrite Ql (U) Negative Normal NEG [facility] Comment on above: Performed By: #### U A ####[facility] ([id number])[address] [address] [place] [address] pH (U) 6.0 [pH] Normal 5.0-8.5 [facility] Comment on above: Performed By: #### U A ####[facility] ([id number])[address] [facility] [address] [place] [address] Protein Ql (U) 50 mg/dL Abnormal NEG [facility] Comment on above: Performed By: #### U A ####[facility] ([id number])[address] [address] [place] [address] R.B.CELLS 5 /hpf Normal 0-5 [facility] Comment on above: Performed By: #### U A ####[facility] ([id number])[address] [address] [place] [address] Specific gravity (U) [Rel density] 1.014 Normal 1.003-1.035 [facility] Comment on above: Performed By: #### U A ####[facility] ([id number])[address] [address] [place] [address] SQUAMOUS EPITHELIUM 1 /hpf Normal 0-5 [facility] Comment on above: Performed By: #### U A ####[facility] ([id number])[address] [address] [place] [address] TURBIDITY HAZY Abnormal CLEAR [facility] Comment on above: Performed By: #### U A ####[facility] ([id number])[address], [address] [place] [address] Urobilinogen (U) [Mass/Vol] mg/dL Normal <1.1 [facility] Comment on above: Performed By: #### U A ####[facility] ([id number])[address] [facility], [address] [place] [address] W.B.CELLS 455 /hpf High 0-5 [facility] Comment on above: Performed By: #### U A ####[facility] ([id number])[address] [facility] [address], [place] [address] WBC CLUMPS RARE Abnormal NONE [facility] Comment on above: Performed By: #### U A ####[facility] ([id number])[address] [facility] [facility], [address], [place] [address] Vitamin D+Metabolites [Mass/ Vol]on 04-21-2024 VITAMIN D 25 HYD TOT 32.8 ng/mL Normal 30-100 [facility] Comment on above: Result Comment: Radha min D status 25 [place] Vitamin D Deficiency <20 ng/mLInsufficiency 20-29 ng/mLSufficiency 30-100 ng/mLToxicity >100 ng/mLNOTE: A pediatric reference range has not beenestablished by the head of product of this kit.The [place] [employer] recommendsa Vitamin D level of = or >20ng/mL in infantsand children. Performed By: #### C BC, UPCR, FEPR, 13140-6, RENAL, 3084-1, 2276-4, 2731-8, 85303-9 ####[facility] ([id number])[address] [facility] [address], [place] [address] MAGNESIUMon 04-14-2024 Magnesium [Mass/Vol] 1.6 mg/dL Low 1.8-2.6 [facility] Comment on above: Performed By: #### 1 9123-9 ####[facility] ([id number])[address] [place] [address] MAGNESIUMon 04-08-2024 Magnesium [Mass/Vol] 1.5 mg/dL Low 1.8-2.6 [facility] Comment on above: Performed By: #### 1 9123-9 ####[facility] ([id number])[address] [place] [address] MAGNESIUMon 03-31-2024 Magnesium [Mass/Vol] 1.7 mg/dL Low 1.8-2.6 [facility] Comment on above: Performed By: #### 1 9123-9 ####[facility] ([id number])[address] [place] [address] MAGNESIUMon 03-24-2024 Magnesium [Mass/Vol] 1.6 mg/dL Low 1.8-2.6 [facility] Comment on above: Performed By: #### 1 9123-9 ####[facility] ([id number])[address] [place] [address] MAGNESIUMon 03-17-2024 Magnesium [Mass/Vol] 1.6 mg/dL Low 1.8-2.6 [facility] Comment on above: Performed By: #### 1 9123-9 ####[facility] ([id number])[address] [place] [address] 20097 MAGNESIUMon 03-10-2024 Magnesium [Mass/Vol] 1.6 mg/dL Low 1.8-2.6 [facility] Comment on above: Performed By: #### 1 9123-9 ####[facility] ([id number])[address] [place] [address] MAGNESIUMon 03-03-2024 Magnesium [Mass/Vol] 1.8 mg/dL Normal 1.8-2.6 [facility] Comment on above: Performed By: #### 1 9123-9 ####[facility] ([id number])[address] [place] [address] 23615 MAGNESIUMon 02-25-2024 Magnesium [Mass/Vol] 1.9 mg/dL Normal 1.8-2.6 [facility] Comment on above: Performed By: #### 1 9123-9 ####[facility] ([id number])[address] [place] [address] 20705 MAGNESIUMon 02-18-2024 Magnesium [Mass/Vol] 1.9 mg/dL Normal 1.8-2.6 [facility] Comment on above: Performed By: #### 1 9123-9 ####[facility] ([id number])[address] [place] [address]31 MAGNESIUMon 02-11-2024 Magnesium [Mass/Vol] 2.0 mg/dL Normal 1.8-2.6 [facility] Comment on above: Performed By: #### 1 9123-9 ####[facility] ([id number])[address] [place] [address]233 MAGNESIUMon 02-04-2024 Magnesium [Mass/Vol] 1.8 mg/dL Normal 1.8-2.6 [facility] Comment on above: Performed By: #### 1 9123-9 ####[facility] ([id number])[address] [place] [address] MAGNESIUMon 01-28-2024 Magnesium [Mass/Vol] 1.8 mg/dL Normal 1.8-2.6 [facility] Comment on above: Performed By: #### 1 9123-9 ####[facility] ([id number])[address] [place] [address] 89763 MAGNESIUMon 01-21-2024 Magnesium [Mass/Vol] 1.7 mg/dL Low 1.8-2.6 [facility] Comment on above: Performed By: #### 2 823-3, 23265-3 ####[facility] ([id number])[address] [place] [address]486 POTASSIUMon 01-21-2024 Potassium [Moles/Vol] 3.6 mmol/L Normal 3.5-5.0 [facility] Comment on above: Performed By: #### 2 823-3, 54736-8 ####[facility] ([id number])[address] [place] [address] 56571 MAGNESIUMon 01-14-2024 Magnesium [Mass/Vol] 1.6 mg/dL Low 1.8-2.6 [facility] Comment on above: Performed By: #### 1 9123-9 ####[facility] ([id number])[address] [place] [address] 38030 MAGNESIUMon 01-07-2024 Magnesium [Mass/Vol] 1.7 mg/dL Low 1.8-2.6 [facility] Comment on above: Performed By: #### 1 9123-9 ####[facility] ([id number])[address] [place] [address] 02616 MAGNESIUMon 12-31-2023 Magnesium [Mass/Vol] 1.7 mg/dL Low 1.8-2.6 [facility] Comment on above: Performed By: #### 1 9123-9 ####[facility] ([id number])[address] [place] [address] [place] [address] MAGNESIUMon 12-24-2023 Magnesium [Mass/Vol] 1.6 mg/dL Low 1.8-2.6 [facility] Comment on above: Performed By: #### 1 9123-9 ####[facility] ([id number])[address] [place] [address] 24434 MAGNESIUMon 12-17-2023 Magnesium [Mass/Vol] 1.5 mg/dL Low 1.8-2.6 [facility] Comment on above: Performed By: #### 1 9123-9 ####[facility] ([id number])[address] [place] [address] 80894 MAGNESIUMon 12-10-2023 Magnesium [Mass/Vol] 1.7 mg/dL Low 1.8-2.6 [facility] Comment on above: Performed By: #### 1 9123-9 ####[facility] ([id number])[address] [place] [address] 10935 MAGNESIUMon 12-03-2023 Magnesium [Mass/Vol] 1.7 mg/dL Low 1.8-2.6 [facility] Comment on above: Performed By: #### 1 9123-9 ####[facility] ([id number])[address] [place] [address] COMPREHENSIVE METABOLIC PANE [facility] 11-26-2023 Albumin [Mass/Vol] 3.9 g/dL Normal 3.2-5.3 [facility] Comment on above: Performed By: #### 1 9123-9 ####[facility] ([id number])[address] [place] [address] 78155#### CMP, 67213-0 ####[facility] ([id number])[address], [address], [place] [address] ALP [Catalytic activity/Vol] 122 U/L Normal 39-130 [facility] Comment on above: Performed By: #### 1 9123-9 ####[facility] ([id number])[address] [place] [address] 21708#### CMP, 70252-6 ####[facility] ([id number])[address], [place] [address] ALT [Catalytic activity/Vol] 29 U/L Normal 0-31 [facility] Comment on above: Performed By: #### 1 9123-9 ####[facility] ([id number])[address] [place] [address] 91925#### JAS, 25207-0 ####[facility] ([id number])[address], [place] [address] Anion gap [Moles/Vol] 9 mmol/L Normal 5-15 [facility] Comment on above: Performed By: #### 1 9123-9 ####[facility] ([id number])[address] [place] [address] 44163#### JAS, 16507-6 ####[facility] ([id number])[address], [place] [address] AST [Catalytic activity/Vol] 22 U/L Normal 0-41 [facility] Comment on above: Performed By: #### 1 9123-9 ####[facility] ([id number])[address] [place] [address] 88682#### JAS, 86194-7 ####[facility] ([id number])[address], [place] [address] Bilirubin [Mass/Vol] 0.4 mg/dL Normal 0.3-1.2 [facility] Comment on above: Performed By: #### 1 9123-9 ####[facility] ([id number])[address] [place] [address] 57669#### JAS, 35621-2 ####[facility] ([id number])[address], [place] [address] Calcium [Mass/Vol] 9.7 mg/dL Normal 8.5-10.5 [facility] Comment on above: Performed By: #### 1 9123-9 ####[facility] ([id number])[address] [place] [address] 00829#### CMP, 43420-0 ####[facility] ([id number])[address] [facility] [facility], [address] [place] [address] Chloride [Moles/Vol] 103 mmol/L Normal 98-109 [facility] Comment on above: Performed By: #### 1 9123-9 ####[facility] ([id number])[address] [place] [address] 69250#### CMP, 98107-0 ####[facility] ([id number])[address] [place] [address], [address] [place] [address] CO2 [Moles/Vol] 30 mmol/L Normal 22-32 [facility] Comment on above: Performed By: #### 1 9123-9 ####[facility] ([id number])[address] [place] [address] 63876#### JAS, 72837-3 ####[facility] ([id number])[address] [place] [address], [address] [address] Creatinine [Mass/Vol] 1.53 mg/dL High 0.40-1.00 [facility] Comment on above: Result Comment: METH OD TRACEABLE TO IDMS STANDARD Performed By: #### 1 9123-9 ####[facility] ([id number])[address] [place] [address] 69122#### CMP, 36887-1 ####[facility] ([id number])[facility], [address] [address] GFR/1.73 sq M.predicted among non-blacks MDRD (S/P/Bld) [Vol rate/Area] 34 mL/min/{1.73_m2} Low >59 [facility] Comment on above: Result Comment: Repo rted eGFR is based on theCKD-EPI 2020 equation that doesnot use a race coefficient. Performed By: #### 1 9123-9 ####[facility] ([id number])[address] [place] [address] 09649#### JAS, 57595-1 ####[facility] ([id number])[address], [place] [address] Glucose [Mass/Vol] 165 mg/dL High 65-99 [facility] Comment on above: Performed By: #### 1 9123-9 ####[facility] ([id number])[address] [place] [address] 35261#### JAS, 69222-8 ####[facility] ([id number])[address], [place] [address] Potassium [Moles/Vol] 4.4 mmol/L Normal 3.5-5.0 [facility] Comment on above: Performed By: #### 1 9123-9 ####[facility] ([id number])[address] [place] [address] 41113#### JAS, 47534-5 ####[facility] ([id number])[address], [place] [address] Protein [Mass/Vol] 7.1 g/dL Normal 6.0-8.0 [facility] Comment on above: Performed By: #### 1 9123-9 ####[facility] ([id number])[address] [place] [address] 14466#### JAS, 42683-2 ####[facility] ([id number])[address], [place] [address] Sodium [Moles/Vol] 142 mmol/L Normal 134-146 [facility] Comment on above: Performed By: #### 1 9123-9 ####[facility] ([id number])[address] [place] [address] 00313#### JAS, 59412-1 ####[facility] ([id number])[address] [facility] [facility], [address] [place] [address]162 Urea nitrogen [Mass/Vol] 43 mg/dL High 5-27 [facility] Comment on above: Performed By: #### 1 9123-9 ####[facility] ([id number])[address] [place] [address] 35617#### JAS, 04527-5 ####[facility] ([id number])[address] [facility] [facility], [address] [place] [address] HGB A1C (GLYCO-HGB)on 2023 Glucose [Mass/Vol] 163 mg/dL Normal [facility] Comment on above: Performed By: #### 1 9123-9 ####[facility] ([id number])[address] [place] [address] 93313#### JAS, 38925-0 ####[facility] ([id number])[address] [facility], [address] [place] [address]349 HbA1c (Bld) [Mass fraction] 7.3 % High 4.4-5.6 [facility] Comment on above: Result Comment: NOTE ADA Guidelines Result HgbA1c Normal : less than 5.7 % Prediabetes : 5.7 % to 6.4 % Diabetes : > 6.4 %Use with caution in patients with abnormal hemoglobin variants asthe half-life of red blood cells and in vivo glycation rates areaffected. Performed By: #### 1 9123-9 ####[facility] ([id number])[address] [place] [address] 22124#### JAS, 42211-3 ####[facility] ([id number])[address], [address] [place] [address] Lipid 1996 panelon 4 Cholesterol [Mass/Vol] 145 mg/dL Low 150-200 [facility] Comment on above: Performed By: #### 1 9123-9 ####[facility] ([id number])[address] [place] [address]25[address]#### JAS, 87325-1 ####[facility] ([id number])[address], [address] [place] [address]5983 Cholesterol in HDL [Mass/Vol] 53 mg/dL Normal >39 [facility] Comment on above: Result Comment: HDL <40 mg/dL - High RiskHDL > or = 40mg/dL- DesirableHDL >60 mg/dL - Negative Risk Performed By: #### 1 9123-9 ####[facility] ([id number])[address] [place] [address] 02448#### JAS, 53391-0 ####[facility] ([id number])[address], [address] [place] [address] 36188 Cholesterol in LDL [Mass/Vol] 43 mg/dL Normal <130 [facility] Comment on above: Result Comment: LDL <100 mg/dL - DesirableLDL >160 mg/dL - High Risk Performed By: #### 1 9123-9 ####[facility] ([id number])[address] [place] [address] 47682#### JAS, 47495-6 ####[facility] ([id number])[address], [address], [place] [address] Cholesterol in VLDL [Mass/Vol] 49 mg/dL High 0-30 [facility] Comment on above: Performed By: #### 1 9123-9 ####[facility] ([id number])[address] [place] [address] 57579#### JAS, 65228-2 ####[facility] ([id number])[address], [address], [place] [address] CHOLESTEROL:HDL 2.7 Normal 1.0-5.0 [facility] Comment on above: Performed By: #### 1 9123-9 ####[facility] ([id number])[address] [place] [address] 72466#### JAS, 74805-1 ####[facility] ([id number])[address], [address] [place] [address] Triglyceride [Mass/Vol] 245 mg/dL High 27-150 [facility] Comment on above: Performed By: #### 1 9123-9 ####[facility] ([id number])[address] [place] [address] 40890#### JAS, 37702-8 ####[facility] ([id number])[address], [address], [place] [address] MAGNESIUMon 11-26-2023 Magnesium [Mass/Vol] 1.8 mg/dL Normal 1.8-2.6 [facility] Comment on above: Performed By: #### 1 9123-9 ####[facility] ([id number])[address] [place] [address] 49213#### CMP, 75040-9 ####[facility] ([id number])[address], [address], [place] [address] MICROALBUMIN - ALBUMIN:CREAT ININE URINE RATIOon 11-26-2023 ALB/CREAT RATIO 352.8 mg/g creat High 0.0-30.0 [facility] Comment on above: Performed By: #### M ALBU #### [facility] ([id number]) [address], [address] [place] [address] Albumin DL <= 20 mg/L (U) [Mass/Vol] 14.6 mg/dL High 0.0-1.9 [facility] Comment on above: Performed By: #### M ALBU #### [facility] ([id number]) [address], [address] [place] [address] URINE CREAT 41.38 mg/dL Normal [facility] Comment on above: Performed By: #### M ALBU #### [facility] ([id number]) [address], [address] [place] [address] Office Visiton 11-19-2023 Follow-up visit [id number] Adore Dugan Maryjane 1940 F Date Provider Department Center 11/19/[address] [facility] Family History Problem Relation Age of Onset Heart attack Mother Family Status - Relation Status Age at Mother Level of Service:14885 NE OFFICE/OUTPATIENT ESTABLISHED LOW MDM 20 MIN Normal [facility] Magnesium [Mass/volume] in S asiya or PlasmaOrdered By: Gia Munoz on 11-16-2023 Magnesium [Mass/Vol] 1.4 mg/dL 1.9-2.7 [facility] Multiple labsOrdered By: Mary Ann Carter on 11-16-2023 [facility] PTH INTACTon 01-16-2023 PTH, Intact 115 pg/mL Critically high 15-65 [facility] Comment on above: Performed By: #### M G, URIC, RENAL #### [facility] [address] [address] [address] Nacho Jeffery FERRITINon 01-15-2023 Ferritin [Mass/Vol] 304.0 ng/mL Critically high 8.0-252.0 [facility] Comment on above: Performed By: #### M G, URIC, RENAL #### [facility] [address] [place] [address] Dr. Nacho Jeffery HEMOGRAM AND PLATELon 2022 Hematocrit (Bld) [Volume fraction] 36.0 % Normal 36.0-48.0 [facility] Comment on above: Performed By: #### M G, URIC, RENAL #### [facility] [address] [place] [address] Dr. Nacho Jeffery Hemoglobin (Bld) [Mass/Vol] 11.6 g/dL Critically low 12.0-16.0 [facility] Comment on above: Performed By: #### M G, URIC, RENAL #### [facility] [address] [place] [address] Dr. Nacho Jeffery MCH (RBC) [Entitic mass] 29.4 pg Normal 26.7-34.0 [facility] Comment on above: Performed By: #### M G, URIC, RENAL #### [facility] [address] [place] [address] Dr. Nacho Jeffery MCHC (RBC) [Mass/Vol] 32.2 g/dL Normal 29.9-35.2 [facility] Comment on above: Performed By: #### M G, URIC, RENAL #### [facility] [address] [place] [address] Dr. Nacho Jeffery MCV (RBC) [Entitic vol] 91.4 fL Normal 81.0-99.0 [facility] Comment on above: Performed By: #### M G, URIC, RENAL #### [facility] [address] [place] [address] Dr. Nacho Jeffery PLT 202 103/ul Normal 150-450 [facility] Comment on above: Performed By: #### M G, URIC, RENAL #### [facility] [address] [place] [address] Dr. Nacho Jeffery RBC 3.94 106/ul Critically low 4.20-5.40 [facility] Comment on above: Performed By: #### M G, URIC, RENAL #### [facility] [address] [address] [address] Nacho Jeffery WBC 5.9 103/ul Normal 4.0-11.0 [facility] Comment on above: Performed By: #### M G, URIC, RENAL #### [facility] [address] [address] [address] Nacho Jeffery IRON AND TIBCon 01-15-2023 % SATURATION 23.4 % Normal [facility] Comment on above: Performed By: #### M G, URIC, RENAL #### [facility] [address] [address] [address] Nacho Jeffery Iron [Mass/Vol] 62.0 ug/dL Normal 50.0-170.0 [facility] Comment on above: Performed By: #### M G, URIC, RENAL #### [facility] [address] [place] [address] Dr. Nacho Jeffery TIBC DIRECT 265.0 ug/dL Normal 250.0-450.0 The [facility] Comment on above: Performed By: #### M G, URIC, RENAL #### [facility] [address] [address] [address] Nacho Jeffrey MAGNESIUMon 01-15-2023 Magnesium [Mass/Vol] 1.5 mg/dL Critically low 1.8-2.4 [facility] Comment on above: Performed By: #### M G, URIC, RENAL #### [facility] [address] [address] [address] Nacho Jeffery RENAL FUNCTION PANELon 01-15 Albumin [Mass/Vol] 3.4 g/dL Normal 3.4-5.0 [facility] Comment on above: Performed By: #### M G, URIC, RENAL #### [facility] [address] [place] [address] Dr. Nacho Jeffery Calcium [Mass/Vol] 9.2 mg/dL Normal 8.5-10.1 [facility] Comment on above: Performed By: #### M G, URIC, RENAL #### [facility] [address] [address] [address] Nacho Jeffery Chloride [Moles/Vol] 104 mmol/L Normal 98-107 [facility] Comment on above: Performed By: #### M G, URIC, RENAL #### [facility] [address] [address] [address] Nacho Jeffery CO2 [Moles/Vol] 30.8 mmol/L Normal 21.0-32.0 [facility] Comment on above: Performed By: #### M G, URIC, RENAL #### [facility] [address] [address] [address] Nacho Jeffery Creatinine [Mass/Vol] 1.52 mg/dL Critically high 0.55-1.02 [facility] Comment on above: Performed By: #### M G, URIC, RENAL #### [facility] [address] [place] [address] Dr. Nacho Jeffery EGFR-AF BRITISH 40 mL/min/1.73m2 Critically low >=60 [facility] Comment on above: Performed By: #### M G, URIC, RENAL #### [facility] [address] [address] [address] Nacho Jeffery EGFR-NON AF BRITISH 33 mL/min/1.73m2 Critically low >=60 [facility] Comment on above: Performed By: #### M G, URIC, RENAL #### [facility] [address] [address] [address] Nacho Jeffery Glucose [Mass/Vol] 172 mg/dL Critically high 74-106 [facility] Comment on above: Performed By: #### M G, URIC, RENAL #### [facility] [address] [address] [address] Nacho Jeffery Phosphate [Mass/Vol] 3.7 mg/dL Normal 2.6-4.7 [facility] Comment on above: Performed By: #### M G, URIC, RENAL #### [facility] [address] [place] [address] Dr. Nacho Jeffery Potassium [Moles/Vol] 4.2 mmol/L Normal 3.5-5.1 [facility] Comment on above: Performed By: #### M G, URIC, RENAL #### [facility] [address] [address] [address] Nacho Jeffery Sodium [Moles/Vol] 143 mmol/L Normal 136-145 [facility] Comment on above: Performed By: #### M G, URIC, RENAL #### [facility] [address] [place] [address] Dr. Nacho Jeffery Urea nitrogen [Mass/Vol] 56.0 mg/dL Critically high 7.0-18.0 [facility] Comment on above: Performed By: #### M G, URIC, RENAL #### [facility] [address] [place] [address] Dr. Nacho Jeffery UA RANDOM W/MICROSCOPICon BACTERIA NONE SEEN Normal NONE SEEN [facility] Comment on above: Performed By: #### M G, URIC, RENAL #### [facility] [address] [place] [address] Dr. Nacho Jeffery Bilirubin Ql (U) Negative Normal NEGATIVE [facility] Comment on above: Performed By: #### M G, URIC, RENAL #### [facility] [address] [place] [address] Dr. Nacho Jeffery CAST NONE SEEN Normal NONE SEEN [facility] Comment on above: Performed By: #### M G, URIC, RENAL #### [facility] [address] [place] [address] Dr. Nacho Jeffery Clarity (U) CLEAR Normal CLEAR [facility] Comment on above: Performed By: #### M G, URIC, RENAL #### [facility] [address] [place] [address] Dr. Nacho Jeffery Color (U) LT. YELLOW Normal YELLOW [facility] Comment on above: Performed By: #### M G, URIC, RENAL #### [facility] [address] [place] [address] Dr. Nacho Jeffery Crystals LM Nom (Urine sed) NONE SEEN Normal NONE SEEN [facility] Comment on above: Performed By: #### M G, URIC, RENAL #### [facility] [address] [address] [address] Nacho Jeffery Epithelial cells LM Ql (Urine sed) RARE Normal NONE SEEN /RARE [facility] Comment on above: Performed By: #### M G, URIC, RENAL #### [facility] [address] [address] [address] Nacho Jeffery Glucose Ql (U) Negative Normal NEGATIVE [facility] Comment on above: Performed By: #### M G, URIC, RENAL #### [facility] [address] [address] [address] Nacho Jeffery Hemoglobin Ql (U) Negative Normal NEGATIVE [facility] Comment on above: Performed By: #### M G, URIC, RENAL #### [facility] [address] [address] [address] Nacho Jeffery Ketones Ql (U) Negative Normal NEGATIVE [facility] Comment on above: Performed By: #### M G, URIC, RENAL #### [facility] [address] [address] [address] Nacho Jeffery LEUKOCYTES TRACE Abnormal NEGATIVE [facility] Comment on above: Performed By: #### M G, URIC, RENAL #### [facility] [address] [address] [address] Nacho Jeffery MUCOUS NONE SEEN Normal NONE SEEN [facility] Comment on above: Performed By: #### M G, URIC, RENAL #### [facility] [address] [address] [address] Nacho Jeffery Nitrite Ql (U) Negative Normal NEGATIVE [facility] Comment on above: Performed By: #### M G, URIC, RENAL #### [facility] [address] [address] [address] Nacho Jeffery pH (U) 5.5 [pH] Normal 5-9 [facility] Comment on above: Performed By: #### M G, URIC, RENAL #### [facility] [address] [address] [address] Nacho Jeffery RBC 0-2 Normal 0-2 [facility] Comment on above: Performed By: #### M G, URIC, RENAL #### [facility] [address] [address] [address] Nacho Jeffery SPEC GRAVITY 1.015 Normal 1.005-<=1.025 [facility] Comment on above: Performed By: #### M G, URIC, RENAL #### [facility] [address] [address] [address] Nacho Jeffery UA PROTEIN Negative Normal NEGATIVE/ TRACE [facility] Comment on above: Performed By: #### M G, URIC, RENAL #### [facility] [address] [address] [address] Nacho Jeffery Urobilinogen Qn (U) 0.2 {Zuleyka'U}/dL Normal 0.2 - 1. 0 [facility] Comment on above: Performed By: #### M G, URIC, RENAL #### [facility] [address] [place] [address] Dr. Nacho Jeffery WBC 2-5 Abnormal NONE SEEN [facility] Comment on above: Performed By: #### M G, URIC, RENAL #### [facility] [address] [place] [address] Dr. Nacho Jeffery URIC ACID SERUMon 01-15-2023 Urate [Mass/Vol] 7.0 mg/dL Critically high 2.6-6.0 [facility] Comment on above: Performed By: #### M G, URIC, RENAL #### [facility] [address] [place] [address] Dr. Nacho Jeffery URINE T PROTEIN CREAT RATIOo n 01-15-2023 Protein (U) [Mass/Vol] 13.4 mg/dL Critically high <=12.0 [facility] Comment on above: Performed By: #### U RTPCR #### [facility] [address] [address] [address] Nacho Jeffery UR PROT CREAT RAT 0.24 Normal [facility] Comment on above: Performed By: #### U RTPCR #### [facility] [address] [place] [address] Dr. Nacho Jeffery URINE CREAT 56.90 mg/dL Normal 20.00-300.00 [facility] Comment on above: Performed By: #### U RTPCR #### [facility] [address] [address] [address] Nacho Jeffery VITAMIN D 25 OHon 01-15-2023 VIT D 25-OH 52.6 ng/mL Normal [facility] Comment on above: Performed By: #### M G, URIC, RENAL #### [facility] [address] [address] [address] Nacho Jeffery VIT D RANGES SEE BELOW Normal [facility] Comment on above: Result Comment: <20 ng/mL Vit D deficient 20 - <30 ng/mL Vit D insufficient 30 - 100 ng/mL Vit D sufficient >100 ng/mL Potential Toxicity Performed By: #### M G, URIC, RENAL #### [facility] [address] [place] [address] Dr. Nacho Jeffery Telemedicineon 12-06-2022 Telemedicine [id number] Adore Dugan 1940 F Date Provider [facility] Family History Problem Relation Age of Onset Heart attack Mother Family Status - Relation Status Age at Mother Level of Service:17205 NE OFFICE/OUTPATIENT EST PT MAY NOT REQ PHYS/QHP Normal [facility] GLYCOHEMOGLOBIN A1Con 2021 ADA RECOMMENDATION SEE BELOW Normal [facility] Comment on above: Result Comment: ADA RECOMMENDED LIMIT 4.0 - 6.0 ADA THERAPEUTIC TARGET < 7.0 ACTION SUGGESTED > 7.0 Performed By: #### A 1C #### [facility] [address] [place] [address] Dr. Nacho Jeffery Glucose [Mass/Vol] 143 mg/dL Normal [facility] Comment on above: Performed By: #### A 1C #### [facility] [address] [place] [address] Dr. Nacho Jeffery HbA1c (Bld) [Mass fraction] 6.6 % Critically high 4.5-6.2 [facility] Comment on above: Performed By: #### A 1C #### [facility] [address] [place] [address] Dr. Nacho Jeffery LIPID PROFILEon 11-09-2022 CHOL-HDL RATIO NORM SEE BELOW Normal [facility] Comment on above: Result Comment: 3.3 - 4.4 LOW RISK 4.4 - 7.1 AVERAGE RISK 7.1 - 11.0 MODERATE RISK >11.0 HIGH RISK Performed By: #### M G, URIC, RENAL #### [facility] [address] [address] [address] Nacho Jeffery Cholesterol [Mass/Vol] 141 mg/dL Normal <=200 [facility] Comment on above: Performed By: #### M G, URIC, RENAL #### [facility] [address] [address] [address] Nacho Jeffery Cholesterol in HDL [Mass/Vol] 59 mg/dL Normal 40-60 [facility] Comment on above: Performed By: #### M G, URIC, RENAL #### [facility] [address] [address] [address] Nacho Jeffery Cholesterol in LDL [Mass/Vol] 46.2 mg/dL Normal [facility] Comment on above: Performed By: #### M G, URIC, RENAL #### [facility] [address] [address] [address] Nacho Jeffery Cholesterol.total/C holesterol in HDL [Mass ratio] 2.4 {ratio} Normal [facility] Comment on above: Performed By: #### M G, URIC, RENAL #### [facility] [address] [address] [address] Nacho Jeffery HDL NORMAL > or = 60 mg/dl - LO W CARDIOVASCULAR RISK <40 mg/dl - HIGH CARDIOVASCULAR RISK Normal [facility] Comment on above: Performed By: #### M G, URIC, RENAL #### [facility] [address] [address] [address] Nacho Jeffery LDL CALC NORMAL SEE BELOW Normal [facility] Comment on above: Result Comment: <100 mg/dl OPTIMAL 100 - 129 mg/dl NEAR OR ABOVE OPTIMAL 130 - 159 mg/dl BORDERLINE HIGH 160 - 189 mg/dl HIGH >190 mg/dl VERY HIGH Performed By: #### M G, URIC, RENAL #### [facility] [address] [address] [address] Nacho Jeffery Triglyceride [Mass/Vol] 179 mg/dL Critically high <=150 [facility] Comment on above: Performed By: #### M G, URIC, RENAL #### [facility] [address] [address] [address] Nacho Jeffery VLDL CALC 35.8 mg/dL Normal [facility] Comment on above: Performed By: #### M G, URIC, RENAL #### [facility] [address] [address] [address] Nacho Jeffery PROF 14(COMP METB)on 022 Albumin [Mass/Vol] 3.2 g/dL Critically low 3.4-5.0 [facility] Comment on above: Performed By: #### M G, URIC, RENAL #### [facility] [address] [place] [address] Dr. Nacho Jeffery Albumin/Globulin [Mass ratio] 0.8 {ratio} Normal [facility] Comment on above: Performed By: #### M G, URIC, RENAL #### [facility] [address] [place] [address] Dr. Nacho Jeffery ALP [Catalytic activity/Vol] 109 U/L Normal 46-116 [facility] Comment on above: Performed By: #### M G, URIC, RENAL #### [facility] [address] [address] [address] Nacho Jeffery ALT [Catalytic activity/Vol] 38 U/L Normal 14-59 [facility] Comment on above: Performed By: #### M G, URIC, RENAL #### [facility] [address] [address] [address] Nacho Jeffery Anion gap [Moles/Vol] 13.7 mmol/L Normal [facility] Comment on above: Performed By: #### M G, URIC, RENAL #### [facility] [address] [place] [address] Dr. Nacho Jeffery AST [Catalytic activity/Vol] 27 U/L Normal 15-37 [facility] Comment on above: Performed By: #### M G, URIC, RENAL #### [facility] [address] [address] [address] Nacho Jeffery Bilirubin [Mass/Vol] 0.4 mg/dL Normal 0.2-1.0 [facility] Comment on above: Performed By: #### M G, URIC, RENAL #### [facility] [address] [place] [address] Dr. Nacho Jeffery Calcium [Mass/Vol] 9.2 mg/dL Normal 8.5-10.1 [facility] Comment on above: Performed By: #### M G, URIC, RENAL #### [facility] [address] [place] [address] Dr. Nacho Jeffery Chloride [Moles/Vol] 105 mmol/L Normal 98-107 [facility] Comment on above: Performed By: #### M G, URIC, RENAL #### [facility] [address] [place] [address] Dr. Nacho Jeffery CO2 [Moles/Vol] 29.5 mmol/L Normal 21.0-32.0 [facility] Comment on above: Performed By: #### M G, URIC, RENAL #### [facility] [address] [place] [address] Dr. Nacho Jeffery Creatinine [Mass/Vol] 1.62 mg/dL Critically high 0.55-1.02 [facility] Comment on above: Performed By: #### M G, URIC, RENAL #### [facility] [address] [place] [address] Dr. Nacho Jeffery EGFR-AF BRITISH 37 mL/min/1.73m2 Critically low >=60 [facility] Comment on above: Performed By: #### M G, URIC, RENAL #### [facility] [address] [place] [address] Dr. Nacho Jeffery EGFR-NON AF BRITISH 31 mL/min/1.73m2 Critically low >=60 [facility] Comment on above: Performed By: #### M G, URIC, RENAL #### [facility] [address] [place] [address] Dr. Nacho Jeffery Globulin (S) [Mass/Vol] 3.8 g/dL Normal [facility] Comment on above: Performed By: #### M Jamarcus URIC, RENAL #### [facility] [address] [address] [address] Nacho Jeffery Glucose [Mass/Vol] 102 mg/dL Normal 74-106 [facility] Comment on above: Performed By: #### M Jamarcus URIC, RENAL #### [facility] [address] [address] [address] Nacho Jeffery Potassium [Moles/Vol] 4.2 mmol/L Normal 3.5-5.1 [facility] Comment on above: Performed By: #### M Jamarcus URIC, RENAL #### [facility] [address] [place] [address] Dr. Nacho Jeffery Protein [Mass/Vol] 7.0 g/dL Normal 6.4-8.2 [facility] Comment on above: Performed By: #### M Jamarcus URIC, RENAL #### [facility] [address] [place] [address] Dr. Nacho Jeffery Sodium [Moles/Vol] 144 mmol/L Normal 136-145 [facility] Comment on above: Performed By: #### M Jamarcus URIC, RENAL #### [facility] [address] [place] [address] Dr. Nacho Jeffery Urea nitrogen [Mass/Vol] 45.0 mg/dL Critically high 7.0-18.0 [facility] Comment on above: Performed By: #### M Jamarcus URIC, RENAL #### [facility] [address] [place] [address] Dr. Nacho Jeffery Urea nitrogen/Creatinine [Mass ratio] 27.8 mg/mg Normal [facility] Comment on above: Performed By: #### M Jamarcus URIC, RENAL #### [facility] [address] [place] [address] Dr. Nacho Jeffery OSMOLALITY URINEon 2 Osmolality, Urine 466 mOsmol/kg Normal [facility] Comment on above: Result Comment: 24 h r : 300 - 900 Random: 50 - 1400 After 12hr fluid restriction: >850 Performed By: #### M G, URIC, RENAL #### [facility] [address] [address] [address] Nacho Jeffery PTH INTACTon 07-13-2022 PTH, Intact 84 pg/mL Critically high 15-65 [facility] Comment on above: Performed By: #### P THINT #### [facility] [address] [address] [address] Nacho Jefefry VIT D 25-OH LABCORPon 2021 Vitamin D, 25-Hydroxy 34.7 ng/mL Normal 30.0-100.0 [facility] Comment on above: Result Comment: Radha min D deficiency has been defined by the [place] [employer] and an Endocrine Society practice guideline as a level of serum 25-OH vitamin D less than 20 ng/mL (1,2). The Endocrine Society went on to further define vitamin D insufficiency as a level between 21 and 29 ng/mL (2). 1. IOM ([place] [employer]). 2010. Dietary reference intakes for calcium and D. [place]: The National Academies Press. 2. Magdiel MF, Kb NC, Evens PEPPER, et al. Evaluation, treatment, and prevention of vitamin D deficiency: an Endocrine Society clinical practice guideline. JCEM. 2010; 96(7):1911-30. Performed By: #### M G, URIC, RENAL #### [facility] [address] [address] [address] Nacho Jeffery HEMOGRAM AND PLATELon 2021 Hematocrit (Bld) [Volume fraction] 35.5 % Critically low 36.0-48.0 [facility] Comment on above: Performed By: #### M G, URIC, RENAL #### [facility] [address] [id number] Nacho Jeffery Hemoglobin (Bld) [Mass/Vol] 11.5 g/dL Critically low 12.0-16.0 [facility] Comment on above: Performed By: #### M G, URIC, RENAL #### [facility] [address] [address] [address] Nacho Jeffery MCH (RBC) [Entitic mass] 30.6 pg Normal 26.7-34.0 [facility] Comment on above: Performed By: #### M G, URIC, RENAL #### [facility] [address] [address] [address] Nacho Jeffery MCHC (RBC) [Mass/Vol] 32.4 g/dL Normal 29.9-35.2 [facility] Comment on above: Performed By: #### M G, URIC, RENAL #### [facility] [address] [address] [address] Nacho Jeffery MCV (RBC) [Entitic vol] 94.4 fL Normal 81.0-99.0 [facility] Comment on above: Performed By: #### M G, URIC, RENAL #### [facility] [address] [place] [address] Dr. Nacho Jeffery PLT 192 103/ul Normal 150-450 [facility] Comment on above: Performed By: #### M G, URIC, RENAL #### [facility] [address] [address] [address] Nacho Jeffery RBC 3.76 106/ul Critically low 4.20-5.40 [facility] Comment on above: Performed By: #### M G, URIC, RENAL #### [facility] [address] [place] [address] Dr. Nacho Jeffery WBC 6.1 103/ul Normal 4.0-11.0 [facility] Comment on above: Performed By: #### M G, URIC, RENAL #### [facility] [address] [address] [address] Nacho Jeffery MAGNESIUMon 07-12-2022 Magnesium [Mass/Vol] 1.3 mg/dL Critically low 1.8-2.4 [facility] Comment on above: Performed By: #### U CHRISTOFER, MG, RENAL #### [facility] [address] [place] [address] Dr. Nacho Jeffery RENAL FUNCTION PANELon 07-12 Albumin [Mass/Vol] 3.3 g/dL Critically low 3.4-5.0 [facility] Comment on above: Performed By: #### U CHRISTOFER, MG, RENAL #### [facility] [address] [address] [address] Nacho Jeffery Calcium [Mass/Vol] 9.1 mg/dL Normal 8.5-10.1 [facility] Comment on above: Performed By: #### U CHRISTOFER, MG, RENAL #### [facility] [address] [address] [address] Nacho Jeffery Chloride [Moles/Vol] 104 mmol/L Normal 98-107 [facility] Comment on above: Performed By: #### U CHRISTOFER, MG, RENAL #### [facility] [address] [address] [address] Nacho Jeffery CO2 [Moles/Vol] 31.7 mmol/L Normal 21.0-32.0 [facility] Comment on above: Performed By: #### U CHRISTOFER, MG, RENAL #### [facility] [address] [place] [address] Dr. Nacho Jeffery Creatinine [Mass/Vol] 1.52 mg/dL Critically high 0.55-1.02 [facility] Comment on above: Performed By: #### U CHRISTOFER, MG, RENAL #### [facility] [address] [place] [address] Dr. Nacho Jeffery EGFR-AF BRITISH 40 mL/min/1.73m2 Critically low >=60 [facility] Comment on above: Performed By: #### U CHRISTOFER, MG, RENAL #### [facility] [address] [address] [address] Nacho Jeffery EGFR-NON AF BRITISH 33 mL/min/1.73m2 Critically low >=60 [facility] Comment on above: Performed By: #### U CHRISTOFER, MG, RENAL #### [facility] [address] [address] [address] Nacho Jeffery Glucose [Mass/Vol] 221 mg/dL Critically high 74-106 [facility] Comment on above: Performed By: #### U CHRISTOFER, MG, RENAL #### [facility] [address] [address] [address] Nacho Jeffery Phosphate [Mass/Vol] 3.8 mg/dL Normal 2.6-4.7 [facility] Comment on above: Performed By: #### U CHRISTOFER, MG, RENAL #### [facility] [address] [place] [address] Dr. Nacho Jeffery Potassium [Moles/Vol] 4.1 mmol/L Normal 3.5-5.1 [facility] Comment on above: Performed By: #### U CHRISTOFER, MG, RENAL #### [facility] [address] [place] [address] Dr. Nacho Jeffery Sodium [Moles/Vol] 143 mmol/L Normal 136-145 [facility] Comment on above: Performed By: #### U CHRISTOFER, MG, RENAL #### [facility] [address] [place] [address] Dr. Nacho Jeffery Urea nitrogen [Mass/Vol] 45.0 mg/dL Critically high 7.0-18.0 [facility] Comment on above: Performed By: #### U CHRISTOFER, MG, RENAL #### [facility] [address] [place] [address] Dr. Nacho Jeffery UA RANDOM W/MICROSCOPICon BACTERIA NONE SEEN Normal NONE SEEN [facility] Comment on above: Performed By: #### M G, URIC, RENAL #### [facility] [address] [place] [address] Dr. Nacho Jeffery Bilirubin Ql (U) Negative Normal NEGATIVE [facility] Comment on above: Performed By: #### M G, URIC, RENAL #### [facility] [address] [place] [address] Dr. Nacho Jeffery CAST NONE SEEN Normal NONE SEEN [facility] Comment on above: Performed By: #### M G, URIC, RENAL #### [facility] [address] [place] [address] Dr. Nacho Jeffery Clarity (U) CLEAR Normal CLEAR [facility] Comment on above: Performed By: #### M G, URIC, RENAL #### [facility] [address] [place] [address] Dr. Nacho Jeffery Color (U) LT. YELLOW Normal YELLOW [facility] Comment on above: Performed By: #### M G, URIC, RENAL #### [facility] [address] [address] [address] Nacho Jeffery Crystals LM Nom (Urine sed) NONE SEEN Normal NONE SEEN [facility] Comment on above: Performed By: #### M G, URIC, RENAL #### [facility] [address] [address] [address] Nacho Jeffery Epithelial cells LM Ql (Urine sed) FEW Abnormal NONE SEEN /RARE [facility] Comment on above: Performed By: #### M G, URIC, RENAL #### [facility] [address] [address] [address] Nacho Jeffery Glucose Ql (U) Negative Normal NEGATIVE [facility] Comment on above: Performed By: #### M G, URIC, RENAL #### [facility] [address] [place] [address] Dr. Nacho Jeffery Hemoglobin Ql (U) Negative Normal NEGATIVE [facility] Comment on above: Performed By: #### M G, URIC, RENAL #### [facility] [address] [place] [address] Dr. Nacho Jeffery Ketones Ql (U) Negative Normal NEGATIVE [facility] Comment on above: Performed By: #### M G, URIC, RENAL #### [facility] [address] [place] [address] Dr. Nacho Jeffery LEUKOCYTES TRACE Abnormal NEGATIVE [facility] Comment on above: Performed By: #### M G, URIC, RENAL #### [facility] [address] [address] [address] Nacho Jeffery MUCOUS NONE SEEN Normal NONE SEEN [facility] Comment on above: Performed By: #### M G, URIC, RENAL #### [facility] [address] [address] [address] Nacho Jeffery Nitrite Ql (U) Negative Normal NEGATIVE [facility] Comment on above: Performed By: #### M G, URIC, RENAL #### [facility] [address] [address] [address] Nacho Jeffery pH (U) 6.0 [pH] Normal 5-9 [facility] Comment on above: Performed By: #### M G, URIC, RENAL #### [facility] [address] [place] [address] Dr. Nacho Jeffery RBC NONE SEEN Abnormal 0-2 [facility] Comment on above: Performed By: #### M G, URIC, RENAL #### [facility] [address] [place] [address] Dr. Nacho Jeffery SPEC GRAVITY 1.015 Normal 1.005-<=1.025 [facility] Comment on above: Performed By: #### M G, URIC, RENAL #### [facility] [address] [place] [address] Dr. Nacho Jeffery UA PROTEIN Negative Normal NEGATIVE/ TRACE [facility] Comment on above: Performed By: #### M G, URIC, RENAL #### [facility] [address] [place] [address] Dr. Nacho Jeffery Urobilinogen Qn (U) 0.2 {Zuleyka'U}/dL Normal 0.2 - 1. 0 [facility] Comment on above: Performed By: #### M G, URIC, RENAL #### [facility] [address] [place] [address] Dr. Nacho Jeffery WBC 2-5 Abnormal NONE SEEN [facility] Comment on above: Performed By: #### M G, URIC, RENAL #### [facility] [address] [place] [address] Dr. Nacho Jeffery URIC ACID SERUMon 07-12-2022 Urate [Mass/Vol] 7.9 mg/dL Critically high 2.6-6.0 [facility] Comment on above: Performed By: #### U CHRISTOFER, MG, RENAL #### [facility] [address] [place] [address] Dr. Nacho Jeffery URINE T PROTEIN CREAT RATIOo n 07-12-2022 Protein (U) [Mass/Vol] 17.5 mg/dL Critically high <=12.0 [facility] Comment on above: Performed By: #### M G, URIC, RENAL #### [facility] [address] [place], [place] [address] Dr. Nacho Jeffery UR PROT CREAT RAT 0.29 Normal [facility] Comment on above: Performed By: #### M G, URIC, RENAL #### [facility] [address] [place], [place] [address] Dr. Nacho Jefefry URINE CREAT 60.37 mg/dL Normal 20.00-300.00 [facility] Comment on above: Performed By: #### M G, URIC, RENAL #### [facility] [address] [place], [place] [address] Dr. Nacho Jeffery ALBUMIN, RANDOM URINE W/CREA TININEon 05-11-2022 ALBUMIN, URINE 0.5 mg/dL Normal See Note: [facility] Comment on above: Result Comment: Refe rence Range: Reference Range Not established Performed By: #### 4 96, 7600, 6517, 73446 #### [facility] [place] [address] [employer] Security Analyst: Mauricio Kern MD ALBUMIN/CREATININE RATIO, RANDOM URINE [...] Performed By: #### 4 96, 7600, 6517, 69218 #### [facility] [address] [place] [address] [employer] Security Analyst: Mauricio Kern MD Creatinine (U) [Mass/Vol] 74 mg/dL Normal 20-275 [facility] Comment on above: Performed By: #### 4 96, 7600, 6517, 98549 #### [facility] [address] [place] [address] [employer] Security Analyst: Mauricio Kern MD BASIC METABOLIC PANELon 04-14 GLUCOSE Normal [facility] Comment on above: Result Comment: TEST NOT PERFORMED No specimen received. Performed By: #### 4 96, 7600, 6517, 99218 #### [facility] [address], [address] [place] [address] [employer] Systems Security Analyst: Mauricio Kern MD HEMOGLOBIN A1con 05-11-2022 HEMOGLOBIN A1c Normal [facility] Comment on above: Result Comment: TEST NOT PERFORMED No specimen received. Performed By: #### 4 96, 7600, 6517, 71725 #### [facility] [address], [address] [place] [address] [employer] Systems Security Analyst: Mauricio Kern MD LIPID PANEL, STANDARDon 04-14 CHOL/HDLC RATIO Normal [facility] Comment on above: Result Comment: TEST NOT PERFORMED No specimen received. Performed By: #### 4 96, 7600, 6517, 55648 #### [facility] [address] [place] [address] [employer] Systems Security Analyst: Mauricio Kern MD CHOLESTEROL, TOTAL Normal [facility] Comment on above: Result Comment: TEST NOT PERFORMED No specimen received. Performed By: #### 4 96, 7600, 6517, 22750 #### [facility] [place] [address] [employer] Systems Security Analyst: Mauricio Kern MD HDL CHOLESTEROL Normal [facility] Comment on above: Result Comment: TEST NOT PERFORMED No specimen received. Performed By: #### 4 96, 7600, 6517, 23966 #### [facility] [place] [address] [employer] Security Analyst: Mauricio Kern MD LDL-CHOLESTEROL Normal [facility] Comment on above: Result Comment: TEST NOT PERFORMED No specimen received. Performed By: #### 4 96, 7600, 6517, 74018 #### [facility] [address] [place] [address] [employer] Security Analyst: Mauricio Kern MD NON HDL CHOLESTEROL Normal [facility] Comment on above: Result Comment: TEST NOT PERFORMED No specimen received. Performed By: #### 4 96, 7600, 6517, 06713 #### [facility] [address], [address] [place] [address] [employer] Systems Security Analyst: Mauricio Kern MD TRIGLYCERIDES Normal [facility] Comment on above: Result Comment: TEST NOT PERFORMED No specimen received. Performed By: #### 4 96, 7600, 6517, 33220 #### [facility] [place] [address] [employer] Security Analyst: Mauricio Kern MD BASIC METABOLIC PANELon 06-2 Calcium [Mass/Vol] 9.1 mg/dL Normal 8.6-10.4 [facility] Comment on above: Performed By: #### 1 0165, 496, 7600 #### [facility] [place] [address] [employer] Systems Security Analyst: Mauricio Kern MD Chloride [Moles/Vol] 105 mmol/L Normal 98-110 [facility] Comment on above: Performed By: #### 1 0165, 496, 7600 #### [facility] [place] [address] [employer] Systems Security Analyst: Mauricio Kern MD CO2 [Moles/Vol] 25 mmol/L Normal 20-32 [facility] Comment on above: Performed By: #### 1 0165, 496, 7600 #### [facility] [address] [place] [address] [employer] Systems Security Analyst: Mauricio Kern MD Creatinine [Mass/Vol] 1.73 mg/dL High 0.60-0.93 [facility] Comment on above: Result Comment: For patients >49 years of age, the reference limit for Creatinine is approximately 13% higher for people identified as -[place]. Performed By: #### 1 0165, 496, 7600 #### [facility] [address] [place] [address] [employer] Systems Security Analyst: Mauricio Kern MD eGFR NON-AFR. BRITISH 28 mL/min/1.73m2 Low > OR = 60 [facility] Comment on above: Performed By: #### 1 0165, 496, 7600 #### [facility] [address] [place] [address] [employer] Systems Security Analyst: Mauricio Kern MD GFR/1.73 sq M.predicted among blacks MDRD (S/P/Bld) [Vol rate/Area] 32 mL/min/{1.73_m2} Low > OR = 60 [facility] Comment on above: Performed By: #### 1 0165, 496, 7600 #### [facility] [place] [address] [employer] Systems Security Analyst: Mauricio Kern MD Glucose [Mass/Vol] 137 mg/dL High 65-99 [facility] Comment on above: Result Comment: Fasting reference interval For someone without known diabetes, a glucose value >125 mg/dL indicates that they may have diabetes and this should be confirmed with a follow-up test. Performed By: #### 1 016, 496, 7600 #### [facility] [place] [address] [employer] Systems Security Analyst: Mauricio Kern MD Potassium [Moles/Vol] 4.6 mmol/L Normal 3.5-5.3 [facility] Comment on above: Performed By: #### 1 016, 496, 7600 #### [facility] [place] [address] [employer] Systems Security Analyst: Mauricio Kern MD Sodium [Moles/Vol] 142 mmol/L Normal 135-146 [facility] Comment on above: Performed By: #### 1 016, 496, 7600 #### [facility] [place] [address] [employer] Systems Security Analyst: Mauricio Kern MD Urea nitrogen [Mass/Vol] 65 mg/dL High 7-25 [facility] Comment on above: Performed By: #### 1 016, 496, 7600 #### [facility] [place] [address] [employer] Systems Security Analyst: Mauricio Kern MD Urea nitrogen/Creatinine [Mass ratio] 38 mg/mg High - [facility] Comment on above: Performed By: #### 1 0165, 496, 7600 #### [facility] [address], [address] [place] [address] Information Systems Security Analyst: Mauricio Kern MD HEMOGLOBIN A1con 05-04-2022 HEMOGLOBIN [...] 1 0165, 496, 7600 #### [facility] [address], [address] [place] [address] [employer] Systems Security Analyst: Mauricio Kern MD LIPID PANEL, STANDARDon 04-13 Cholesterol [Mass/Vol] 163 mg/dL Normal <200 [facility] Comment on above: Order Comment: FASTI NG:YES PATIENT UNABLE TO VOID; ADVISED TO RETURN FOR COLLECTION. FASTING: YES Performed By: #### 1 0165, 496, 7600 #### [facility] [address], [address] [place] [address] Information Systems Security Analyst: Mauricio Kern MD Cholesterol in HDL [Mass/Vol] 51 mg/dL Normal > OR = 50 [facility] Comment on above: Order Comment: FASTI NG:YES PATIENT UNABLE TO VOID; ADVISED TO RETURN FOR COLLECTION. FASTING: YES Performed By: #### 1 0165, 496, 7600 #### [facility] [address], [address] [place] [address] [employer] Systems Security Analyst: Mauricio Kern MD Cholesterol in LDL [Mass/Vol] [...] LDL-C. Sean SS et al. SHRUTHI. 2013;310(19): 0960-4275 (http://[email or web address]/faq/[email or web address]) Performed By: #### 1 0165, 496, 7600 #### [facility] [address], [address] [place] [address] Information Systems Security Analyst: Mauricio Kern MD Cholesterol.total/C holesterol in HDL [Mass ratio] 3.2 {ratio} Normal <5.0 [facility] Comment on above: Order Comment: FASTI NG:YES PATIENT UNABLE TO VOID; ADVISED TO RETURN FOR COLLECTION. FASTING: YES Performed By: #### 1 0165, 496, 7600 #### [facility] [address], [address] [place] [address] [employer] Systems Security Analyst: Mauricio Kern MD NON HDL CHOLESTEROL 112 [...] 1 0165, 496, 7600 #### [facility] [address], [address] [place] [address] Information Systems Security Analyst: Mauricio Kern MD Triglyceride [Mass/Vol] 181 mg/dL High <150 [facility] Comment on above: Order Comment: FASTI NG:YES PATIENT UNABLE TO VOID; ADVISED TO RETURN FOR COLLECTION. FASTING: YES Performed By: #### 1 0165, 496, 7600 #### [facility] [address], [address] [place] [address] Information Systems Security Analyst: Mauricio Kern MD PTH INTACTon 03-31-2022 PTH, Intact 111 pg/mL Critically high 15-65 [facility] Comment on above: Performed By: #### M G, URIC, RENAL #### [facility] [address] [place] [address] Dr. Nacho Jeffery FERRITINon 03-30-2022 Ferritin [Mass/Vol] 479.0 ng/mL Critically high 8.0-252.0 [facility] Comment on above: Performed By: #### M Jamarcus, URIC, RENAL #### [facility] [address] [place] [address] Dr. Nacho Jeffery HEMOGRAM AND PLATELon 2021 Hematocrit (Bld) [Volume fraction] 38.1 % Normal 36.0-48.0 [facility] Comment on above: Performed By: #### M Jamarcus URIC, RENAL #### [facility] [address] [place] [address] Dr. Nacho Jeffery Hemoglobin (Bld) [Mass/Vol] 12.9 g/dL Normal 12.0-16.0 [facility] Comment on above: Performed By: #### M Jamarcus, URIC, RENAL #### [facility] [address] [place] [address] Dr. Nacho Jeffery MCH (RBC) [Entitic mass] 32.8 pg Normal 26.7-34.0 [facility] Comment on above: Performed By: #### M G, URIC, RENAL #### [facility] [address] [place] [address] Dr. Nacho Jeffery MCHC (RBC) [Mass/Vol] 33.9 g/dL Normal 29.9-35.2 [facility] Comment on above: Performed By: #### M G, URIC, RENAL #### [facility] [address] [place] [address] Dr. Nacho Jeffery MCV (RBC) [Entitic vol] 96.9 fL Normal 81.0-99.0 [facility] Comment on above: Performed By: #### M G, URIC, RENAL #### [facility] [address] [address] [address] Nacho Jeffery PLT 191 103/ul Normal 150-450 [facility] Comment on above: Performed By: #### M G, URIC, RENAL #### [facility] [address] [address] [address] Nacho Jeffery RBC 3.93 106/ul Critically low 4.20-5.40 [facility] Comment on above: Performed By: #### M G, URIC, RENAL #### [facility] [address] [address] [address] Nacho Jeffery WBC 7.2 103/ul Normal 4.0-11.0 [facility] Comment on above: Performed By: #### M G, URIC, RENAL #### [facility] [address] [address] [address] Nacho Jeffery IRON AND TIBCon 03-30-2022 % SATURATION 21.6 % Normal [facility] Comment on above: Performed By: #### M G, URIC, RENAL #### [facility] [address] [address] [address] Nacho Jeffery Iron [Mass/Vol] 63.0 ug/dL Normal 50.0-170.0 [facility] Comment on above: Performed By: #### M G, URIC, RENAL #### [facility] [address] [address] [address] Nacho Jeffery TIBC DIRECT 292.0 ug/dL Normal 250.0-450.0 The [facility] Comment on above: Performed By: #### M G, URIC, RENAL #### [facility] [address] [address] [address] Nacho Jeffery MAGNESIUMon 03-30-2022 Magnesium [Mass/Vol] 1.7 mg/dL Critically low 1.8-2.4 [facility] Comment on above: Performed By: #### M G, URIC, RENAL #### [facility] [address] [address] [address] Nacho Jeffery RENAL FUNCTION PANELon 03-30 Albumin [Mass/Vol] 3.4 g/dL Normal 3.4-5.0 [facility] Comment on above: Performed By: #### M G, URIC, RENAL #### [facility] [address] [place] [address] Dr. Nacho Jeffery Calcium [Mass/Vol] 9.3 mg/dL Normal 8.5-10.1 [facility] Comment on above: Performed By: #### M G, URIC, RENAL #### [facility] [address] [place] [address] Dr. Nacho Jeffery Chloride [Moles/Vol] 102 mmol/L Normal 98-107 [facility] Comment on above: Performed By: #### M G, URIC, RENAL #### [facility] [address] [place] [address] Dr. Nacho Jeffery CO2 [Moles/Vol] 31.7 mmol/L Normal 21.0-32.0 [facility] Comment on above: Performed By: #### M G, URIC, RENAL #### [facility] [address] [place] [address] Dr. Nacho Jeffery Creatinine [Mass/Vol] 2.05 mg/dL Critically high 0.55-1.02 [facility] Comment on above: Performed By: #### M G, URIC, RENAL #### [facility] [address] [place] [address] Dr. Nacho Jeffery EGFR-AF BRITISH 28 mL/min/1.73m2 Critically low >=60 [facility] Comment on above: Performed By: #### M G, URIC, RENAL #### [facility] [address] [place] [address] Dr. Nacho Jeffery EGFR-NON AF BRITISH 23 mL/min/1.73m2 Critically low >=60 [facility] Comment on above: Performed By: #### M G, URIC, RENAL #### [facility] [address] [place] [address] Dr. Nacho Jeffery Glucose [Mass/Vol] 194 mg/dL Critically high 74-106 [facility] Comment on above: Performed By: #### M G, URIC, RENAL #### [facility] [address] [address] [address] Nacho Jeffery Phosphate [Mass/Vol] 3.2 mg/dL Normal 2.6-4.7 [facility] Comment on above: Performed By: #### M G, URIC, RENAL #### [facility] [address] [address] [address] Nacho Jeffery Potassium [Moles/Vol] 4.6 mmol/L Normal 3.5-5.1 [facility] Comment on above: Performed By: #### M G, URIC, RENAL #### [facility] [address] [address] [address] Nacho Jeffery Sodium [Moles/Vol] 141 mmol/L Normal 136-145 [facility] Comment on above: Performed By: #### M G, URIC, RENAL #### [facility] [address] [place] [address] Dr. Nacho Jeffery Urea nitrogen [Mass/Vol] 64.0 mg/dL Critically high 7.0-18.0 [facility] Comment on above: Performed By: #### M G, URIC, RENAL #### [facility] [address] [place] [address] Dr. Nacho Jeffery UA RANDOM W/MICROSCOPICon BACTERIA NONE SEEN Normal NONE SEEN [facility] Comment on above: Performed By: #### M G, URIC, RENAL #### [facility] [address] [place] [address] Dr. Nacho Jeffery Bilirubin Ql (U) Negative Normal NEGATIVE [facility] Comment on above: Performed By: #### M G, URIC, RENAL #### [facility] [address] [place] [address] Dr. Nacho Jeffery CAST NONE SEEN Normal NONE SEEN [facility] Comment on above: Performed By: #### M G, URIC, RENAL #### [facility] [address] [place] [address] Dr. Nacho Jeffery Clarity (U) CLEAR Normal CLEAR [facility] Comment on above: Performed By: #### M G, URIC, RENAL #### [facility] [address] [address] [address] Nacho Jeffery Color (U) LT. YELLOW Normal YELLOW [facility] Comment on above: Performed By: #### M G, URIC, RENAL #### [facility] [address] [address] [address] Nacho Jeffery Crystals LM Nom (Urine sed) NONE SEEN Normal NONE SEEN [facility] Comment on above: Performed By: #### M G, URIC, RENAL #### [facility] [address] [address] [address] Nacho Jeffery Epithelial cells LM Ql (Urine sed) FEW Abnormal NONE SEEN /RARE [facility] Comment on above: Performed By: #### M G, URIC, RENAL #### [facility] [address] [place] [address] Dr. Nacho Jeffery Glucose Ql (U) Negative Normal NEGATIVE [facility] Comment on above: Performed By: #### M G, URIC, RENAL #### [facility] [address] [place] [address] Dr. Nacho Jeffery Hemoglobin Ql (U) Negative Normal NEGATIVE [facility] Comment on above: Performed By: #### M G, URIC, RENAL #### [facility] [address] [place] [address] Dr. Nacho Jeffery Ketones Ql (U) Negative Normal NEGATIVE [facility] Comment on above: Performed By: #### M G, URIC, RENAL #### [facility] [address] [place] [address] Dr. Nacho Jeffery LEUKOCYTES SMALL Abnormal NEGATIVE [facility] Comment on above: Performed By: #### M G, URIC, RENAL #### [facility] [address] [address] [address] Nacho Jeffery MUCOUS NONE SEEN Normal NONE SEEN [facility] Comment on above: Performed By: #### M G, URIC, RENAL #### [facility] [address] [place] [address] Dr. Nacho Jeffery Nitrite Ql (U) Negative Normal NEGATIVE [facility] Comment on above: Performed By: #### M G, URIC, RENAL #### [facility] [address] [address] [address] Nacho Jeffery pH (U) 5.5 [pH] Normal 5-9 [facility] Comment on above: Performed By: #### M G, URIC, RENAL #### [facility] [address] [address] [address] Nacho Jeffery RBC 0-2 Normal 0-2 [facility] Comment on above: Performed By: #### M G, URIC, RENAL #### [facility] [address] [address] [address] Nacho Jeffery SPEC GRAVITY 1.015 Normal 1.005-<=1.025 [facility] Comment on above: Performed By: #### M G, URIC, RENAL #### [facility] [address] [place] [address] Dr. Nacho Jeffery UA PROTEIN Negative Normal NEGATIVE/ TRACE [facility] Comment on above: Performed By: #### M G, URIC, RENAL #### [facility] [address] [address] [address] Nacho Jeffery Urobilinogen Qn (U) 0.2 {Zuleyka'U}/dL Normal 0.2 - 1. 0 [facility] Comment on above: Performed By: #### M G, URIC, RENAL #### [facility] [address] [place] [address] Dr. Nacho Jeffery WBC 5-10 Abnormal NONE SEEN [facility] Comment on above: Performed By: #### M G, URIC, RENAL #### [facility] [address] [address] [address] Nacho Jeffery URIC ACID SERUMon 03-30-2022 Urate [Mass/Vol] 7.0 mg/dL Critically high 2.6-6.0 [facility] Comment on above: Performed By: #### M G, URIC, RENAL #### [facility] [address] [place] [address] Dr. Nacho Jeffery URINE T PROTEIN CREAT RATIOo n 03-30-2022 Protein (U) [Mass/Vol] 7.1 mg/dL Normal <=12.0 [facility] Comment on above: Performed By: #### U RTPCR #### [facility] [address] [address] [address] Nacho Jeffery UR PROT CREAT RAT 0.06 Normal [facility] Comment on above: Performed By: #### U RTPCR #### [facility] [address] [address] [address] Nacho Jeffery URINE CREAT 113.23 mg/dL Normal 20.00-300.00 [facility] Comment on above: Performed By: #### U RTPCR #### [facility] [address] [address] [address] Nacho Jeffery VITAMIN D 25 OHon 03-30-2022 VIT D 25-OH 57.4 ng/mL Normal [facility] Comment on above: Performed By: #### M G, URIC, RENAL #### [facility] [address] [place] [address] Dr. Nacho Jeffery VIT D RANGES SEE BELOW Normal [facility] Comment on above: Result Comment: <20 ng/mL Vit D deficient 20 - <30 ng/mL Vit D insufficient 30 - 100 ng/mL Vit D sufficient >100 ng/mL Potential Toxicity Performed By: #### M G, URIC, RENAL #### [facility] [address] [address] [address] Nacho Jeffery COMPREHENSIVE METABOLIC PANE Jared 08-30-2021 Albumin [Mass/Vol] 3.7 g/dL Normal 3.6-5.1 [facility] Comment on above: Performed By: #### 1 023, 0 #### [facility] [address] Information Systems Security Analyst: Mauricio Kern MD Albumin/Globulin [Mass ratio] 1.4 {ratio} Normal 1.0-2.5 [facility] Comment on above: Performed By: #### 1 023, 0 #### [facility] [address], [address] [place] [id number] Information Systems Security Analyst: Mauricio Kern MD ALP [Catalytic activity/Vol] 98 U/L Normal 37-153 [facility] Comment on above: Performed By: #### 1 0231, 7600 #### [facility] of [address], [address] [place] [address] Information Systems Security Analyst: Mauricio Kern MD ALT [Catalytic activity/Vol] 23 U/L Normal 6-29 [facility] Comment on above: Performed By: #### 1 0231, 7600 #### [facility] of [address], [address] [place] [address] Information Systems Security Analyst: Mauricio Kern MD AST [Catalytic activity/Vol] 22 U/L Normal 10-35 [facility] Comment on above: Performed By: #### 1 0231, 7600 #### [facility] of [address] [address] Information Systems Security Analyst: Mauricio Kern MD Bilirubin [Mass/Vol] 0.4 mg/dL Normal 0.2-1.2 [facility] Comment on above: Performed By: #### 1 0231, 7600 #### [facility] of [address], [address] [place] [address] Information Systems Security Analyst: Mauricio Kern MD Calcium [Mass/Vol] 9.2 mg/dL Normal 8.6-10.4 [facility] Comment on above: Performed By: #### 1 0231, 7600 #### [facility] of [address] [address] Information Systems Security Analyst: Mauricio Kern MD Chloride [Moles/Vol] 103 mmol/L Normal 98-110 [facility] Comment on above: Performed By: #### 1 0231, 7600 #### [facility] of [address], [address] [place] [address] Information Systems Security Analyst: Mauricio Kern MD CO2 [Moles/Vol] 28 mmol/L Normal 20-32 [facility] Comment on above: Performed By: #### 1 0231, 7600 #### [facility] of [address], [address] [place] [address] Information Systems Security Analyst: Mauricio Kern MD Creatinine [Mass/Vol] 2.22 mg/dL High 0.60-0.93 [facility] Comment on above: Result Comment: For patients >49 years of age, the reference limit for Creatinine is approximately 13% higher for people identified as -[place]. Performed By: #### 1 023, 7600 #### [facility] [address] [address] Information Systems Security Analyst: Mauricio Kern MD eGFR NON-AFR. BRITISH 21 mL/min/1.73m2 Low > OR = 60 [facility] Comment on above: Performed By: #### 1 023, 7600 #### [facility] [address] [address] Information Systems Security Analyst: Mauricio Kern MD GFR/1.73 sq M.predicted among blacks MDRD (S/P/Bld) [Vol rate/Area] 24 mL/min/{1.73_m2} Low > OR = 60 [facility] Comment on above: Performed By: #### 1 023, 7600 #### [facility] of [address] [address] Information Systems Security Analyst: Mauricio Kern MD Globulin (S) [Mass/Vol] 2.7 g/dL Normal 1.9-3.7 [facility] Comment on above: Performed By: #### 1 023, 7600 #### [facility] [address] [address] Information Systems Security Analyst: Mauricio Kern MD Glucose [Mass/Vol] 107 mg/dL High 65-99 [facility] Comment on above: Result Comment: Fasting reference interval For someone without known diabetes, a glucose value between 100 and 125 mg/dL is consistent with prediabetes and should be confirmed with a follow-up test. Performed By: #### 1 023, 7600 #### [facility] [address] [address] Information Systems Security Analyst: Mauricio Kern MD Potassium [Moles/Vol] 4.7 mmol/L Normal 3.5-5.3 [facility] Comment on above: Performed By: #### 1 0231, 7600 #### [facility] of [address], [address] [place] [address] Information Systems Security Analyst: Mauricio Kern MD Protein [Mass/Vol] 6.4 g/dL Normal 6.1-8.1 [facility] Comment on above: Performed By: #### 1 0231, 7600 #### [facility] of [address], [address] [place] [address] Information Systems Security Analyst: Mauricio Kern MD Sodium [Moles/Vol] 141 mmol/L Normal 135-146 [facility] Comment on above: Performed By: #### 1 0231, 7600 #### [facility] of [address], [address] [place] [address] Information Systems Security Analyst: Mauricio Kern MD Urea nitrogen [Mass/Vol] 69 mg/dL High 7-25 [facility] Comment on above: Performed By: #### 1 0231, 7600 #### [facility] of [address], [address] [place] [address] Information Systems Security Analyst: Mauricio Kern MD Urea nitrogen/Creatinine [Mass ratio] 31 mg/mg High 6-22 [facility] Comment on above: Performed By: #### 1 0231, 7600 #### [facility] of [address], [address] [place] [address] Information Systems Security Analyst: Mauricio Kern MD LIPID PANEL, [address] [address] Cholesterol [Mass/Vol] 142 mg/dL Normal <200 [facility] Comment on above: Order Comment: FASTI NG:YES FASTING: YES Performed By: #### 1 0231, 7600 #### [facility] of [address], [address] [place] [address] Information Systems Security Analyst: Mauricio Kern MD Cholesterol in HDL [Mass/Vol] 47 mg/dL Low > OR = 50 [facility] Comment on above: Order Comment: FASTI NG:YES FASTING: YES Performed By: #### 1 0231, 7600 #### [facility] of [address], [address] [place] [address] Information Systems Security Analyst: Mauricio Kern MD Cholesterol in LDL [Mass/Vol] [...] LDL-C. Sean BREAUX et al. SHRUTHI. 2013;310(19): 4276-7307 (http://education.[employer]/faq/UXV210) Performed By: #### 1 0231, 7600 #### [facility] [address], [address] [place] [address] Information Systems Security Analyst: Mauricio Kern MD Cholesterol.total/C holesterol in HDL [Mass ratio] 3.0 {ratio} Normal <5.0 [facility] Comment on above: Order Comment: FASTI NG:YES FASTING: YES Performed By: #### 1 0231, 7600 #### [facility] [address], [address] [place] [address] Information Systems Security Analyst: Mauricio Kern MD NON HDL CHOLESTEROL 95 mg/dL (calc) Normal <130 [facility] Comment on above: Order Comment: FASTI NG:YES FASTING: YES Result Comment: For patients with diabetes plus 1 major ASCVD risk factor, treating to a non-HDL-C goal of <100 mg/dL (LDL-C of <70 mg/dL) is considered a therapeutic option. Performed By: #### 1 0231, 7600 #### [facility] [address], [address] [place] [address] Information Systems Security Analyst: Mauricio Kern MD Triglyceride [Mass/Vol] 188 mg/dL High <150 [facility] Comment on above: Order Comment: FASTI NG:YES FASTING: YES Performed By: #### 1 0231, 7600 #### [facility] [address], [address] [place], [place] [phone] Information Systems Security Analyst: Mauricio Kern MD BASIC METABOLIC PANELon 03-12 Calcium [Mass/Vol] 10.0 mg/dL Normal 8.6-10.3 [facility] Comment on above: Performed By: #### 0 0071 #### [facility] [address] [place] [address], [place] Chloride [Moles/Vol] 101 mmol/L Normal 98-107 [facility] Comment on above: Performed By: #### 0 0071 #### [facility] [address] [place] [address], [place] CO2 [Moles/Vol] 28 mmol/L Normal 21-[address] [facility] Comment on above: Performed By: #### 0 0071 #### [facility] [address] [place] [address], [place] Creatinine [Mass/Vol] 1.96 mg/dL High 0.60-1.20 [facility] Comment on above: Performed By: #### 0 0071 #### [facility] [address] [place] [address], [place] eGFR- 30 ml/min/1.73sq m Abnormal >60 [facility] Comment on above: Result Comment: Calc ulation may not be valid for patients over 70 years Performed By: #### 0 0071 #### [facility] [address] [place] [address], [place] eGFR- non- 24 ml/min/1.73sq m Abnormal >60 [facility] Comment on above: Result Comment: Calc ulation may not be valid for patients over 70 years Performed By: #### 0 0071 #### [facility] [address] [place] [address], [place] Glucose [Mass/Vol] 171 mg/dL High 70-100 [facility] Comment on above: Performed By: #### 0 0071 #### [facility] [address] [place] [address], [facility] Potassium [Moles/Vol] 3.9 mmol/L Normal 3.5-5.1 [facility] Comment on above: Performed By: #### 0 0071 #### [facility] [address] [place] [address], [facility] Sodium [Moles/Vol] 139 mmol/L Normal 136-145 [facility] Comment on above: Performed By: #### 0 0071 #### [facility] [address] [place] [address], [facility] Urea nitrogen [Mass/Vol] 66 mg/dL High 7-25 [facility] Comment on above: Performed By: #### 0 0071 #### [facility] [address] [place] [id number] [place] [address] Cardiovascular Lab Reporton 03-30-2021 Cardiovascular Lab Report [facility] Patient Name: Adore Dugan [facility] MR #: [id number] Physician: Moe Parham, Department of M.D. Medicine Service Date: 03/30/2021 Division of Birthdate: 1940 Cardiology Room #: Adult Cardiovascular Services [address] [address] Cardiovascular Laboratory Report FINAL IMPRESSIONS: 1. Moderate [...] enzyme inhibitor/receptor micki. 4. Follow up with [facility] Cardiology in the next 2 to 3 months. 5. Follow up with Dr. Hakcett as scheduled. PROCEDURES: Bilateral selective coronary angiography [...] the left radial artery was obtained. A 6-Citizen Of [place] glide sheath was inserted without difficulty. Bilateral selective coronary angiography was performed using JL4 and a 4-Citizen Of [place] 3DRC catheter. After reviewing the images and [...] Parham M.D. Date Trans: 03/30/2021 03:19 P/molly [id number] cc: Fernie Hackett M.D. [address] [address] [address] [place] [id number] [facility] Vital Signs Date Time Vital Sign Value Performing Clinician Facility 11-04-2024 09:42-0500 Body height 165.1 cm Pfo 1 [facility] 11-04-2024 09:42-0500 Body mass index (BMI) [Ratio] 45.26 kg/m2 Pfo 1 [facility] 11-04-2024 09:42-0500 Body temperature 97.5 [degF] [facility]fo 1 [facility] 11-04-2024 09:42-0500 Body weight 123.38 kg Pfo 1 [facility] 11-04-2024 09:42-0500 Diastolic blood pressure 65 mm[Hg] Pfo 1 [facility] 11-04-2024 09:42-0500 Heart rate 65 /min Pfo 1 [facility] 11-04-2024 09:42-0500 Respiratory rate 18 /min Pfo 1 [facility] 11-04-2024 09:42-0500 SaO2% (BldA) [Mass fraction] 98 % Pfo 1 [facility] 11-04-2024 09:42-0500 Systolic blood pressure 153 mm[Hg] Pfo 1 [facility] 10-07-2024 09:29-0500 Body height 165.1 cm Pfo 2 [facility] 10-07-2024 09:29-0500 Body mass index (BMI) [Ratio] 45.26 kg/m2 Pfo 2 [facility] 10-07-2024 09:29-0500 Body temperature 97.59 [degF] Pfo 2 [facility] 10-07-2024 09:29-0500 Body weight 123.38 kg Pfo 2 [facility] 10-07-2024 09:29-0500 Diastolic blood pressure 63 mm[Hg] Pfo 2 [facility] 10-07-2024 09:29-0500 Heart rate 72 /min Pfo 2 [facility] 10-07-2024 09:29-0500 Respiratory rate 18 /min Pfo [address] [facility] 10-07-2024 09:29-0500 SaO2% (BldA) [Mass fraction] 94 % Pfo 2 [facility] 10-07-2024 09:29-0500 Systolic blood pressure 155 mm[Hg] Pfo 2 [facility] 10-01-2024 09:24-0500 Body height 165.1 cm Pfo 5 [facility] 10-01-2024 09:24-0500 Body mass index (BMI) [Ratio] 45.26 kg/m2 Pfo 5 [facility] 10-01-2024 09:24-0500 Body temperature 97.39 [degF] Pfo [address] [facility] 10-01-2024 09:24-0500 Body weight 123.38 kg Pfo 5 [facility] 10-01-2024 09:24-0500 Diastolic blood pressure 56 mm[Hg] Pfo 5 [facility] 10-01-2024 09:24-0500 Heart rate 76 /min Pfo 5 [facility] 10-01-2024 09:24-0500 Respiratory rate 16 /min Pfo [address] [facility] 10-01-2024 09:24-0500 SaO2% (BldA) [Mass fraction] 96 % Pfo 5 [facility] 10-01-2024 09:24-0500 Systolic blood pressure 153 mm[Hg] Pfo 5 [facility] 09-10-2024 09:21-0400 Body temperature 97.7 [degF] Pfo 5 [facility] 09-10-2024 09:21-0400 Diastolic blood pressure 61 mm[Hg] Pfo 5 [facility] 09-10-2024 09:21-0400 Heart rate 68 /min Pfo 5 [facility] 09-10-2024 09:21-0400 Respiratory rate 18 /min Pfo 5 [facility] 09-10-2024 09:21-0400 SaO2% (BldA) [Mass fraction] 99 % Pfo 5 [facility] 09-10-2024 09:21-0400 Systolic blood pressure 164 mm[Hg] Pfo 5 [facility] 08-27-2024 09:270400 Body height 165.1 cm Pfo 5 [facility] 08-27-2024 09:270400 Body mass index (BMI) [Ratio] 46.1 kg/m2 Pfo 5 [facility] 08-27-2024 09:270400 Body temperature 97.39 [degF] Pfo 5 [facility] 08-27-2024 09:270400 Body weight 125.65 kg Pfo 5 [facility] 08-27-2024 09:270400 Diastolic blood pressure 86 mm[Hg] Pfo 5 [facility] 08-27-2024 09:270400 Heart rate 75 /min Pfo 5 [facility] 08-27-2024 09:270400 Respiratory rate 16 /min Pfo [address] [facility] 08-27-2024 09:270400 SaO2% (BldA) [Mass fraction] 98 % Pfo 5 [facility] 08-27-2024 09:270400 Systolic blood pressure 151 mm[Hg] Pfo 5 [facility] 08-20-2024 09:170400 Body height 165.1 cm Pfo 5 [facility] 08-20-2024 09:170400 Body mass index (BMI) [Ratio] 46.1 kg/m2 Pfo 5 [facility] 08-20-2024 09:170400 Body temperature 97.59 [degF] Pfo 5 [facility] 08-20-2024 09:170400 Body weight 125.65 kg Pfo 5 [facility] 08-20-2024 09:170400 Diastolic blood pressure 67 mm[Hg] Pfo 5 [facility] 08-20-2024 09:17-0400 Heart rate 66 /min Pfo 5 [facility] 08-20-2024 09:17-0400 Respiratory rate 16 /min Pfo [address] [facility] 08-20-2024 09:17-0400 SaO2% (BldA) [Mass fraction] 99 % Pfo 5 [facility] 08-20-2024 09:17-0400 Systolic blood pressure 167 mm[Hg] Pfo 5 [facility] 08-13-2024 09:20-0400 Body height 165.1 cm Pfo 4 [facility] 08-13-2024 09:20-0400 Body mass index (BMI) [Ratio] 46.1 kg/m2 Pfo 4 [facility] 08-13-2024 09:20-0400 Body temperature 97.59 [degF] Pfo 4 [facility] 08-13-2024 09:20-0400 Body weight 125.65 kg Pfo 4 [facility] 08-13-2024 09:20-0400 Diastolic blood pressure 65 mm[Hg] Pfo 4 [facility] 08-13-2024 09:20-0400 Heart rate 70 /min Pfo 4 [facility] 08-13-2024 09:20-0400 Respiratory rate 16 /min Pfo [address] [facility] 08-13-2024 09:20-0400 SaO2% (BldA) [Mass fraction] 96 % Pfo 4 [facility] 08-13-2024 09:20-0400 Systolic blood pressure 169 mm[Hg] Pfo 4 [facility] 05-01-2024 13:52-0400 Body height 165.1 cm [facility] 05-01-2024 13:52-0400 Body mass index (BMI) [Ratio] 47.5 kg/m2 [facility] 05-01-2024 13:52-0400 Body temperature 96.7 [degF] [facility] 05-01-2024 13:52-0400 Body weight 129.38 kg [facility] 05-01-2024 13:52-0400 Diastolic blood pressure 60 mm[Hg] [facility] 05-01-2024 13:52-0400 Heart rate 76 /min [facility] 05-01-2024 13:52-0400 Respiratory rate 18 /min [facility] 05-01-2024 13:52-0400 SaO2% (BldA) [Mass fraction] 95 % [facility] 05-01-2024 13:52-0400 Systolic blood pressure 130 mm[Hg] [facility] 02-13-2024 09:26-0400 Body height 165.1 cm Pfo 6 [facility] 02-13-2024 09:26-0400 Body mass index (BMI) [Ratio] 44.6 kg/m2 Pfo 6 [facility] 02-13-2024 09:26-0400 Body temperature 97.7 [degF] Pfo 6 [facility] 02-13-2024 09:26-0400 Body weight 121.56 kg Pfo 6 [facility] 02-13-2024 09:26-0400 Diastolic blood pressure 60 mm[Hg] Pfo 6 [facility] 02-13-2024 09:26-0400 Heart rate 60 /min Pfo 6 [facility] 02-13-2024 09:26-0400 Respiratory rate 18 /min Pfo 6 [facility] 02-13-2024 09:26-0400 SaO2% (BldA) [Mass fraction] 94 % Pfo 6 [facility] 02-13-2024 09:26-0400 Systolic blood pressure 162 mm[Hg] Pfo 6 [facility] 02-06-2024 09:30-0400 Body height 165.1 cm Pfo 6 [facility] 02-06-2024 09:30-0400 Body mass index (BMI) [Ratio] 44.6 kg/m2 Pfo 6 [facility] 02-06-2024 09:30-0400 Body temperature 97.9 [degF] Pfo 6 [facility] 02-06-2024 09:30-0400 Body weight 121.56 kg Pfo 6 [facility] 02-06-2024 09:30-0400 Diastolic blood pressure 75 mm[Hg] Pfo 6 [facility] 02-06-2024 09:30-0400 Heart rate 60 /min Pfo 6 [facility] 02-06-2024 09:30-0400 Respiratory rate 188 /min Pfo [address] [facility] 02-06-2024 09:30-0400 SaO2% (BldA) [Mass fraction] 98 % Pfo 6 [facility] 02-06-2024 09:30-0400 Systolic blood pressure 176 mm[Hg] Pfo 6 [facility] 01-30-2024 09:25-0400 Body height 165.1 cm Pfo 6 [facility] 01-30-2024 09:25-0400 Body mass index (BMI) [Ratio] 44.93 kg/m2 Pfo 6 [facility] 01-30-2024 09:25-0400 Body temperature 97.7 [degF] Pfo [address] [facility] 01-30-2024 09:25-0400 Body weight 122.47 kg Pfo 6 [facility] 01-30-2024 09:25-0400 Diastolic blood pressure 60 mm[Hg] Pfo 6 [facility] 01-30-2024 09:25-0400 Heart rate 56 /min Pfo 6 [facility] 01-30-2024 09:25-0400 Respiratory rate 18 /min Pfo [address] [facility] 01-30-2024 09:25-0400 SaO2% (BldA) [Mass fraction] 93 % Pfo 6 [facility] 01-30-2024 09:25-0400 Systolic blood pressure 168 mm[Hg] Pfo 6 [facility] 01-23-2024 09:33-0400 Body height 165.1 cm Pfo 6 [facility] 01-23-2024 09:33-0400 Body mass index (BMI) [Ratio] 45.93 kg/m2 Pfo 6 [facility] 01-23-2024 09:33-0400 Body temperature 97.39 [degF] Pfo [address] [facility] 01-23-2024 09:33-0400 Body weight 125.19 kg Pfo 6 [facility] 01-23-2024 09:33-0400 Diastolic blood pressure 73 mm[Hg] Pfo 6 [facility] 01-23-2024 09:33-0400 Heart rate 66 /min Pfo 6 [facility] 01-23-2024 09:33-0400 Respiratory rate 18 /min Pfo [address] [facility] 01-23-2024 09:33-0400 SaO2% (BldA) [Mass fraction] 98 % Pfo 6 [facility] 01-23-2024 09:33-0400 Systolic blood pressure 180 mm[Hg] Pfo 6 [facility] 01-16-2024 09:24-0500 Body height 165.1 cm Pfo 6 [facility] 01-16-2024 09:24-0500 Body mass index (BMI) [Ratio] 46.1 kg/m2 Pfo 6 [facility] 01-16-2024 09:24-0500 Body temperature 98.01 [degF] Pfo [address] [facility] 01-16-2024 09:24-0500 Body weight 125.65 kg Pfo 6 [facility] 01-16-2024 09:24-0500 Diastolic blood pressure 80 mm[Hg] Pfo 6 [facility] 01-16-2024 09:24-0500 Heart rate 71 /min Pfo 6 [facility] 01-16-2024 09:24-0500 Respiratory rate 18 /min Pfo [address] [facility] 01-16-2024 09:24-0500 SaO2% (BldA) [Mass fraction] 97 % Pfo 6 [facility] 01-16-2024 09:24-0500 Systolic blood pressure 180 mm[Hg] Pfo 6 [facility] 01-09-2024 09:36-0500 Body height 165.1 cm Pfo 3 [facility] 01-09-2024 09:36-0500 Body mass index (BMI) [Ratio] 46.1 kg/m2 Pfo 3 [facility] 01-09-2024 09:36-0500 Body temperature 97.9 [degF] Pfo [address] [facility] 01-09-2024 09:36-0500 Body weight 125.65 kg Pfo 3 [facility] 01-09-2024 09:36-0500 Diastolic blood pressure 75 mm[Hg] Pfo 3 [facility] 01-09-2024 09:36-0500 Heart rate 70 /min Pfo 3 [facility] 01-09-2024 09:36-0500 Respiratory rate 18 /min Pfo [address] [facility] 01-09-2024 09:36-0500 SaO2% (BldA) [Mass fraction] 97 % Pfo 3 [facility] 01-09-2024 09:36-0500 Systolic blood pressure 180 mm[Hg] Pfo 3 [facility] 01-02-2024 09:37-0500 Body temperature 98.01 [degF] Pfo [address] [facility] 01-02-2024 09:37-0500 Diastolic blood pressure 72 mm[Hg] Pfo 4 [facility] 01-02-2024 09:37-0500 Heart rate 62 /min Pfo 4 [facility] 01-02-2024 09:37-0500 Respiratory rate 18 /min Pfo [address] [facility] 01-02-2024 09:37-0500 SaO2% (BldA) [Mass fraction] 95 % Pfo 4 [facility] 01-02-2024 09:37-0500 Systolic blood pressure 184 mm[Hg] Pfo 4 [facility] [facility] 12-26-2023 09:37-0500 Body height 165.1 cm Pfo 4 [facility] 12-26-2023 09:37-0500 Body mass index (BMI) [Ratio] 46.1 kg/m2 Pfo 4 [facility] 12-26-2023 09:37-0500 Body temperature 97.7 [degF] Pfo 4 [facility] 12-26-2023 09:37-0500 Body weight 125.65 kg Pfo 4 [facility] 12-26-2023 09:37-0500 Diastolic blood pressure 64 mm[Hg] Pfo 4 [facility] 12-26-2023 09:37-0500 Heart rate 67 /min Pfo 4 [facility] 12-26-2023 09:37-0500 Respiratory rate 18 /min Pfo [address] [facility] 12-26-2023 09:37-0500 SaO2% (BldA) [Mass fraction] 96 % Pfo 4 [facility] 12-26-2023 09:37-0500 Systolic blood pressure 177 mm[Hg] Pfo 4 [facility] 12-19-2023 09:30-0500 Body height 165.1 cm Pfo 2 [facility] 12-19-2023 09:30-0500 Body mass index (BMI) [Ratio] 46.13 kg/m2 Pfo 2 [facility] 12-19-2023 09:30-0500 Body temperature 97.39 [degF] Pfo 2 [facility] 12-19-2023 09:30-0500 Body weight 125.74 kg Pfo 2 [facility] 12-19-2023 09:30-0500 Diastolic blood pressure 67 mm[Hg] Pfo 2 [facility] 12-19-2023 09:30-0500 Heart rate 67 /min Pfo 2 [facility] 12-19-2023 09:30-0500 Respiratory rate 18 /min Pfo [address] [facility] 12-19-2023 09:30-0500 SaO2% (BldA) [Mass fraction] 97 % Pfo 2 [facility] 12-19-2023 09:30-0500 Systolic blood pressure 196 mm[Hg] Pfo 2 [facility] 12-12-2023 09:25-0500 Body height 165.1 cm Pfo 2 [facility] 12-12-2023 09:25-0500 Body mass index (BMI) [Ratio] 45.43 kg/m2 Pfo 2 [facility] 12-12-2023 09:25-0500 Body temperature 97.5 [degF] Pfo 2 [facility] 12-12-2023 09:25-0500 Body weight 123.83 kg Pfo 2 [facility] 12-12-2023 09:25-0500 Diastolic blood pressure 71 mm[Hg] Pfo 2 [facility] 12-12-2023 09:25-0500 Heart rate 70 /min Pfo 2 [facility] 12-12-2023 09:25-0500 Respiratory rate 18 /min Pfo [address] [facility] 12-12-2023 09:25-0500 SaO2% (BldA) [Mass fraction] 98 % Pfo 2 [facility] 12-12-2023 09:25-0500 Systolic blood pressure 166 mm[Hg] Pfo 2 [facility] 11-28-2023 09:17-0500 Body height 165.1 cm Pfo 1 [facility] 11-28-2023 09:17-0500 Body mass index (BMI) [Ratio] 44.93 kg/m2 Pfo 1 [facility] 11-28-2023 09:17-0500 Body temperature 97.2 [degF] Pfo [address] [facility] 11-28-2023 09:17-0500 Body weight 122.47 kg Pfo 1 [facility] 11-28-2023 09:17-0500 Diastolic blood pressure 56 mm[Hg] Pfo 1 [facility] 11-28-2023 09:17-0500 Heart rate 79 /min Pfo 1 [facility] 11-28-2023 09:17-0500 Respiratory rate 18 /min Pfo [address] [facility] 11-28-2023 09:17-0500 SaO2% (BldA) [Mass fraction] 99 % Pfo 1 [facility] 11-28-2023 09:17-0500 Systolic blood pressure 156 mm[Hg] Pfo 1 [facility] 11-21-2023 10:01-0500 Body height 165.1 cm Pfo 1 [facility] 11-21-2023 10:01-0500 Body mass index (BMI) [Ratio] 44.6 kg/m2 Pfo 1 [facility] 11-21-2023 10:01-0500 Body temperature 97.81 [degF] Pfo [address] [facility] 11-21-2023 10:01-0500 Body weight 121.56 kg Pfo 1 [facility] 11-21-2023 10:01-0500 Diastolic blood pressure 52 mm[Hg] Pfo 1 [facility] 11-21-2023 10:01-0500 Heart rate 62 /min Pfo 1 [facility] 11-21-2023 10:01-0500 Respiratory rate 18 /min Pfo [address] [facility] 11-21-2023 10:01-0500 SaO2% (BldA) [Mass fraction] 94 % Pfo 1 [facility] 11-21-2023 10:01-0500 Systolic blood pressure 122 mm[Hg] [facility] 1 [facility] 11-16-2023 09:00-0500 Body temperature 96.6 [degF] DO [employer] Work Phone: [facility] 11-16-2023 09:00-0500 Diastolic blood pressure 74 mm[Hg] DO [employer] Work Phone: [facility] 11-16-2023 09:00-0500 Heart rate 71 /min DO [employer] Work Phone: [facility] 11-16-2023 09:00-0500 Respiratory rate 18 /min DO [employer] Work Phone: [facility] 11-16-2023 09:00-0500 SaO2% (BldA) [Mass fraction] 97 % DO [employer] Work Phone: [facility] 11-16-2023 09:00-0500 Systolic blood pressure 148 mm[Hg] DO [employer] Work Phone: [facility] 08-23-2023 12:20-0400 Body height 165.1 cm Gia Tammy Other [employer] [facility] Other 08-23-2023 12:20-0400 Body mass index (BMI) [Ratio] 44.09 kg/m2 Gia Tammy Other [facility] Other 08-23-2023 12:20-0400 Body temperature 96.6 [degF] Gia Tmamy Other [facility] Other 08-23-2023 12:20-0400 Body weight 120.2 kg Gia Tammy Other [facility] Other 08-23-2023 12:20-0400 Diastolic blood pressure 86 mm[Hg] Gia Tammy Other [facility] Other 08-23-2023 12:20-0400 Respiratory rate 18 /min Gia Tammy Other [facility] Other 08-23-2023 12:20-0400 SaO2% (BldA) [Mass fraction] 96 % Gia Tammy Other [facility] Other 08-23-2023 12:20-0400 Systolic blood pressure 138 mm[Hg] Gia Tammy Other [facility] Other 01-25-2023 12:20-0400 Body height 165.1 cm Gia Tammy Other [facility] Other 01-25-2023 12:20-0400 Body mass index (BMI) [Ratio] 45.76 kg/m2 Gia Tammy Other [facility] Other 01-25-2023 12:20-0400 Body temperature 96.7 [degF] Gia Tammy Other [facility] Other 01-25-2023 12:20-0400 Body weight 124.74 kg Gia Tammy Other [facility] Other 01-25-2023 12:20-0400 Diastolic blood pressure 80 mm[Hg] Gia Tammy Other [facility] Other 01-25-2023 12:20-0400 Respiratory rate 18 /min Gia Tammy Other [facility] Other 01-25-2023 12:20-0400 SaO2% (BldA) [Mass fraction] 96 % Gia Tammy Other [facility] Other 01-25-2023 12:20-0400 Systolic blood pressure 139 mm[Hg] Gia Tammy Other [facility] Other 07-20-2022 13:00-0400 Body height 165.1 cm Gia Tammy Other [facility] Other 07-20-2022 13:00-0400 Body temperature 96 [degF] Gia Tammy Other [facility] Other 07-20-2022 13:00-0400 Diastolic blood pressure 71 mm[Hg] Gia Tammy Other [facility] Other 07-20-2022 13:00-0400 Respiratory rate 18 /min Gia Tammy Other [facility] Other 07-20-2022 13:00-0400 SaO2% (BldA) [Mass fraction] 96 % Gia Tammy Other [facility] Other 07-20-2022 13:00-0400 Systolic blood pressure 134 mm[Hg] Gia Tammy Other [facility] Other 04-06-2022 12:00-0400 Body height 165.1 cm Gia Tammy Other [facility] Other 04-06-2022 12:00-0400 Body mass index (BMI) [Ratio] 46.32 kg/m2 Gia Tammy Other [facility] Other 04-06-2022 12:00-0400 Body temperature 98 [degF] Gia Tammy Other [facility] Other 04-06-2022 12:00-0400 Body weight 126.28 kg Gia Tammy Other [facility] Other 04-06-2022 12:00-0400 Diastolic blood pressure 70 mm[Hg] Gia Tammy Other [facility] Other 04-06-2022 12:00-0400 Respiratory rate 20 /min Gia Tammy Other [facility] Other 04-06-2022 12:00-0400 SaO2% (BldA) [Mass fraction] 93 % Gia Tammy Other [facility] Other 04-06-2022 12:00-0400 Systolic blood pressure 122 mm[Hg] Gia Tammy Other [facility] Other 12-27-2021 16:20-0500 Body height 165.1 cm Gia Tammy Other [facility] Other 12-27-2021 16:20-0500 Body mass index (BMI) [Ratio] 46.29 kg/m2 Gia Tammy Other [facility] Other 12-27-2021 16:20-0500 Body temperature 96.2 [degF] Gia Tammy Other [facility] Other 12-27-2021 16:20-0500 Body weight 126.19 kg Gia Tammy Other [facility] Other 12-27-2021 16:20-0500 Diastolic blood pressure 78 mm[Hg] Gia Tammy Other [facility] Other 12-27-2021 16:20-0500 Respiratory rate 20 /min Gia Tammy Other [facility] Other 12-27-2021 16:20-0500 SaO2% (BldA) [Mass fraction] 95 % Gia Tammy Other [facility] Other 12-27-2021 16:20-0500 Systolic blood pressure 161 mm[Hg] [employer]ia Tam[employer] Other [employer] [facility] Other Encounters Encounter Date Encounter Type Care Provider Facility Start: 12-01-2024 End: 12-01-2024 Telephone encounter Jennifer Vale [facility] Comment on above: orders for patient t o be sent out to hospital for evaluation Start: 11-24-2024 End: 11-24-2024 Telephone encounter Fernie Hackett DO Work Phone: [facility] - [facility] Start: 11-20-2024 End: 11-20-2024 ambulatory Fernie Hackett DO Work Phone: [facility] Work Phone: Start: 11-20-2024 End: 11-20-2024 Departed Referred Fernie Mascorrong DO Work Phone: [facility]-LAB Path [facility] Start: 11-18-2024 End: 11-18-2024 [facility] Comment on above: Hypomagnesemia (Prim fara Dx) Start: 11-17-2024 End: 11-19-2024 Telephone encounter Fernie Hackett DO Work Phone: [facility] - [facility] Start: 11-17-2024 End: 11-17-2024 [facility] Start: 11-10-2024 End: 11-10-2024 ambulatory [facility] Start: 11-04-2024 End: 11-04-2024 ambulatory Pfo Infusion Bed 1 Elida Lucas [facility] - Medical Oncology Comment on above: Hypomagnesemia (Prim fara Dx) Start: 11-03-2024 End: 11-03-2024 Refill Fernie Hackett DO Work Phone: [facility] - Family [facility] Start: 11-03-2024 End: 11-03-2024 Orders Only Fernie Hackett DO Work Phone: [facility] - Family Medicine Start: 11-03-2024 End: 11-03-2024 ambulatory Christian Curtis MD Facility:[facility] Start: 10-27-2024 End: 10-27-2024 ambulatory [facility] Start: 10-20-2024 End: 10-20-2024 Documentation procedure Clara [facility] Start: 10-20-2024 End: 10-20-2024 ambulatory [facility] Start: 10-13-2024 End: 10-13-2024 ambulatory [facility] Start: 10-07-2024 End: 10-14-2024 Refill Fernie Hackett DO Work Phone: [facility] - Family [facility] Start: 10-07-2024 End: 10-07-2024 ambulatory Pfo Infusion Chair 2 Elida noel [facility] Comment on above: Hypomagnesemia (Prim fara Dx) Start: 10-06-2024 End: 10-06-2024 ambulatory [facility] Start: 10-01-2024 End: 10-01-2024 ambulatory Pfo Infusion Chair 5 Elida Ireland [facility] - Medical Oncology Comment on above: Hypomagnesemia (Prim fara Dx) Start: 09-29-2024 End: 09-29-2024 [facility] Start: 09-27-2024 End: 09-27-2024 Orders Only Fernie G Roxann DO Work Phone: [facility] - Family Medicine Start: 09-26-2024 End: 09-26-2024 Evaluation and management of inpatient [facility] Start: 09-22-2024 End: 09-22-2024 [facility] Start: 09-15-2024 End: 09-15-2024 [facility] Start: 09-11-2024 End: 09-11-2024 Refill Fernie Molinaangel luis DO Work Phone: [facility] - [facility] Start: 09-10-2024 End: 09-10-2024 Telephone encounter Nina Mcgee [facility] Neu[facility] Comment on above: EMG NEW PATIENT Start: 09-10-2024 End: 09-10-2024 ambulatory Pfo Infusion Chair 5 Elida Ireland [facility] - Medical Oncology Comment on above: Hypomagnesemia (Prim fara Dx) Start: 09-08-2024 End: 09-08-2024 ambulatory [facility] Start: 09-04-2024 End: 09-04-2024 Orders Only Fernie G Roxann DO [facility] Comment on above: Paresthesia of right lower extremity (Primary Dx); Ross's esophagus with dysplasia Start: 09-01-2024 End: 09-01-2024 Documentation procedure Americo Lira [facility] - Medical Oncology Start: 09-01-2024 End: 09-01-2024 ambulatory [facility] Start: 08-27-2024 End: 08-27-2024 ambulatory Pfo Infusion Chair 5 Elida Ireland [facility] - Medical Oncology Comment on above: Hypomagnesemia (Prim fara Dx) Start: 08-25-2024 End: 08-25-2024 ambulatory [facility] Start: 08-22-2024 End: 08-25-2024 Refill Fernierajinder Molinaangel luis DO Work Phone: [facility] - Family Medicine Comment on above: 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 ([facility]) (Primary Dx); Morbid obesity ([facility]) Start: 08-20-2024 End: 08-20-2024 ambulatory Pfo Infusion Chair 5 Elida Ireland [facility] Medical Oncology Comment on above: Hypomagnesemia (Prim fara Dx) Start: 08-18-2024 End: 08-18-2024 ambulatory [facility] Start: 08-13-2024 End: 08-13-2024 ambulatory Pfo Infusion Chair 4 Elida Ireland [facility] Medical Oncology Comment on above: Hypomagnesemia (Prim fara Dx) Start: 08-11-2024 End: 08-11-2024 [facility] Start: 08-06-2024 End: 08-06-2024 ambulatory [facility] Start: 08-04-2024 End: 08-04-2024 ambulatory [facility] Start: 07-30-2024 End: 07-30-2024 ambulatory [facility] Start: 07-28-2024 End: 07-28-2024 [facility] Start: 07-28-2024 End: 07-28-2024 ambulatory Christian Curtis MD Facility: [facility] Start: 07-23-2024 End: 07-23-2024 ambulatory FERNIE G [facility] Start: 07-21-2024 End: 07-21-2024 ambulatory [facility] Start: 07-16-2024 End: 07-16-2024 ambulatory [facility] Start: 07-15-2024 End: 07-15-2024 ambulatory FERNIE Ricketts [facility] Start: 07-09-2024 End: 07-09-2024 ambulatory FERNIE Jamarcus [facility] Start: 07-07-2024 End: 07-07-2024 ambulatory [facility] Start: 07-02-2024 End: 07-02-2024 ambulatory [facility] Start: 06-30-2024 End: 06-30-2024 ambulatory [facility] Start: 06-25-2024 End: 06-25-2024 ambulatory [facility] Start: 06-23-2024 End: 06-23-2024 ambulatory [facility] Start: 06-18-2024 End: 06-18-2024 ambulatory [facility] Start: 06-16-2024 End: 06-16-2024 ambulatory [facility] Start: 06-11-2024 End: 06-11-2024 ambulatory FERNIE G [facility] Start: 06-09-2024 End: 06-09-2024 ambulatory [facility] Start: 06-04-2024 End: 06-04-2024 ambulatory [facility] Start: 06-02-2024 End: 06-02-2024 ambulatory [facility] Start: 05-30-2024 End: 05-30-2024 ambulatory [facility] Start: 05-28-2024 End: 05-28-2024 ambulatory [facility] Start: 05-27-2024 End: 05-27-2024 ambulatory [facility] Start: 05-27-2024 End: 05-27-2024 [facility] Ambulatory [facility] Start: 05-26-2024 End: 05-26-2024 ambulatory [facility] Start: 05-21-2024 End: 05-21-2024 ambulatory [facility] Start: 05-19-2024 End: 05-19-2024 ambulatory [facility] Start: 05-14-2024 End: 05-14-2024 ambulatory [facility] Start: 05-12-2024 End: 05-12-2024 ambulatory [facility] Start: 05-07-2024 End: 05-07-2024 ambulatory [facility] Start: 05-05-2024 End: 05-05-2024 ambulatory [facility] Start: 05-01-2024 End: 05-01-2024 ambulatory [facility] Work Phone: Start: 05-01-2024 End: 05-01-2024 Patient encounter procedure [facility] Nephrology [facility] Work Phone: Start: 04-30-2024 End: 04-30-2024 ambulatory [facility] Start: 04-28-2024 Non-patient / Non-visit [facility] Nephrology Work Phone: Start: 04-28-2024 End: 04-28-2024 ambulatory [facility] Start: 04-23-2024 End: 04-23-2024 ambulatory [facility] Start: 04-21-2024 End: 04-21-2024 ambulatory [facility] Start: 04-16-2024 End: 04-16-2024 ambulatory [facility] Start: 04-14-2024 End: 04-14-2024 ambulatory [facility] Start: 04-09-2024 End: 04-09-2024 ambulatory [facility] Start: 04-08-2024 End: 04-08-2024 ambulatory [facility] Start: 04-02-2024 End: 04-02-2024 ambulatory [facility] Start: 03-31-2024 End: 03-31-2024 ambulatory [facility] Start: 03-26-2024 End: 03-26-2024 ambulatory [facility] Start: 03-24-2024 End: 03-24-2024 ambulatory [facility] Start: 03-19-2024 End: 03-19-2024 ambulatory [facility] Start: 03-17-2024 End: 03-17-2024 ambulatory [facility] Start: 03-12-2024 End: 03-12-2024 ambulatory [facility] Start: 03-10-2024 End: 03-10-2024 ambulatory [facility] Start: 03-03-2024 End: 03-03-2024 ambulatory [facility] Start: 02-25-2024 End: 02-25-2024 ambulatory [facility] Start: 02-25-2024 End: 02-25-2024 ambulatory [facility] Start: 02-18-2024 End: 02-18-2024 ambulatory [facility] Start: 02-13-2024 End: 02-13-2024 ambulatory Pfo Infusion Chair 6 Elida Ireland [facility] Medical Oncology Comment on above: Hypomagnesemia (Prim fara Dx) Start: 02-11-2024 End: 02-11-2024 ambulatory [facility] Start: 02-06-2024 End: 02-06-2024 ambulatory Pfo Infusion Chair 6 Elida Ireland [facility] Medical Oncology Comment on above: Hypomagnesemia (Prim fara Dx) Start: 02-04-2024 End: 02-04-2024 ambulatory [facility] Start: 02-04-2024 End: 02-04-2024 ambulatory Christian Curtis MD Facility:[facility] Start: 01-30-2024 End: 01-30-2024 ambulatory Pfo Infusion Chair 6 Elida Ireland [facility] Oncology Comment on above: Hypomagnesemia (Prim fara Dx) Start: 01-28-2024 End: 01-28-2024 ambulatory [facility] Start: 01-23-2024 End: 01-23-2024 ambulatory Pfo Infusion Chair 6 Elida Ireland [facility] Oncology Comment on above: Hypomagnesemia (Prim fara Dx) Start: 01-21-2024 End: 01-21-2024 ambulatory FERNIE HACKETT [facility] Start: 01-21-2024 End: 01-21-2024 ambulatory Christian Curtis MD Facility:[facility] Start: 01-17-2024 Orders Only Fernie noguera DO Work Phone: [facility] - Family Medicine Comment on above: Hypertension 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 ([facility]) (Primary Dx) Start: 01-16-2024 End: 01-16-2024 ambulatory Pfo Infusion Chair 6 Elida Ireland [facility] Medical Oncology Comment on above: Hypomagnesemia (Prim fara Dx) Start: 01-14-2024 End: 01-14-2024 ambulatory [facility] Start: 01-09-2024 End: 01-09-2024 ambulatory Pfo Infusion Chair 3 Elida Ireland [facility] Medical Oncology Comment on above: Hypomagnesemia (Prim fara Dx) Start: 01-08-2024 End: 01-08-2024 Patient encounter procedure Fernie Hackett DO Work Phone: [facility] - Family Medicine Comment on above: Medicare annual well ness visit, subsequent (Primary Dx); Screening for depression Start: 01-08-2024 End: 01-08-2024 ambulatory [facility] Start: 01-07-2024 End: 01-07-2024 ambulatory [facility] Start: 01-02-2024 End: 01-11-2024 ambulatory Pfo Infusion Chair 4 Elida Ireland [facility] Medical Oncology Comment on above: Hypomagnesemia (Prim fara Dx) Start: 12-31-2023 End: 12-31-2023 ambulatory [facility] Start: 12-26-2023 End: 12-26-2023 ambulatory Pfo Infusion Chair 4 Elida Ireland [facility] Medical Oncology Comment on above: Hypomagnesemia (Prim fara Dx) Start: 12-24-2023 End: 12-24-2023 [facility] Start: 12-19-2023 End: 12-19-2023 ambulatory Pfo Infusion Chair 2 Elida Ireland [facility] Medical Oncology Comment on above: Hypomagnesemia (Prim fara Dx) Start: 12-17-2023 End: 12-17-2023 ambulatory [facility] Start: 12-12-2023 End: 12-12-2023 ambulatory Pfo Infusion Chair 2 Elida Ireland [facility] Medical Oncology Comment on above: Hypomagnesemia (Prim fara Dx) Start: 12-11-2023 Refill Theresa Dhaval [employer] [facility] Start: 12-10-2023 End: 12-10-2023 ambulatory [facility] Start: 12-07-2023 Orders Only Fernie noguera DO Work Phone: [facility] Medicine - Family Medicine Start: 12-05-2023 Telephone encounter Gia Munoz [facility] Ne[facility] Start: 12-05-2023 End: 12-05-2023 ambulatory FERNIE [facility] [employer] Other Start: 12-04-2023 Refill Fernie noguera DO Work Phone: [facility] - Family Medicine Start: 12-03-2023 End: 12-03-2023 ambulatory [facility] Start: 11-28-2023 End: 11-28-2023 ambulatory Pfo Infusion Bed 1 Elida hu [facility] Medical Oncology Comment on above: Hypomagnesemia (Prim fara Dx) Start: 11-26-2023 End: 11-26-2023 ambulatory [facility] Start: 11-26-2023 End: 11-26-2023 ambulatory [facility] Start: 11-26-2023 End: 11-26-2023 ambulatory [facility] Start: 11-21-2023 End: 11-21-2023 ambulatory Pfo Infusion Bed 1 Elida hu [facility] Medical Oncology Comment on above: Hypomagnesemia (Prim fara Dx) Mixed hyperlipidemia (Primary Dx); Type 2 diabetes mellitus with stage 3b chronic kidney disease, with long-term current use of insulin ([facility]); Essential hypertension Start: 11-20-2023 Chart abstracting Felicity Ireland [facility] - Medical Oncology Start: 11-19-2023 End: 11-19-2023 ambulatory [facility] Comment on above: Hypomagnesemia (Prim fara Dx) Start: 11-16-2023 End: 11-16-2023 ambulatory DO Fernie Hackett Work Phone: [facility] Work Phone: Start: 11-16-2023 End: 11-16-2023 Discharged Recurring DO Fernie Hackett Work Phone: [facility]-Infusion Therapy - O/P Work Phone: Start: 11-12-2023 Refill Fernie Mascorro ng DO Work Phone: [facility] - [facility] Medicine Start: 08-23-2023 End: 08-23-2023 ambulatory Gia Tammy Other [employer] Other Start: 08-23-2023 Office outpatient vi sit 25 minutes Gia Tammy [facility] Start: 04-26-[address] FERNIE HACKETT Fac ility:[facility] Start: 01-25-2023 End: 01-26-[address] LUISA STERN . [facility] Other Start: 01-25-2023 Office outpatient vi sit 25 minutes Gia Tammy [facility] Start: 01-15-2023 End: 01-16-2023 ambulatory GIA TAMMY Facility:[facility] Start: 12-06-2022 End: 12-06-2022 ambulatory [facility] Start: 11-09-2022 End: 11-10-[address] FERNIE HACKETT Facility:[facility] Start: 10-26-2022 End: 10-27-[address] LUISA STERN . Facility:[facility] Start: 08-02-2022 End: 08-03-[address] LUISA STERN . Facility:[facility] Start: 07-20-2022 End: 07-20-2022 ambulatory Gia Tammy Other [facility] Other Start: 07-20-2022 Office outpatient vi sit 25 minutes Gia Tammy [facility] Start: 07-12-2022 End: 07-13-2022 ambulatory GIA TAMMY Facility:[facility] Start: 05-03-2022 End: 05-03-2022 ambulatory Gia Tammy Other [facility] Other Start: 05-03-2022 Telephone encounter Gia [facility] Start: 04-25-2022 End: 04-26-[address] LUISA STERN . Facility:[facility] Start: 04-06-2022 End: 04-06-2022 ambulatory Gia Tammy Other [facility] Other Start: 04-06-2022 Office outpatient vi sit 25 minutes Gia Tammy [facility] [place] Start: 03-30-2022 End: 03-31-2022 ambulatory GIA TAMMY Facility: Start: 03-30-2022 End: 03-31-[address] LUISA STERN . Facility: Start: 12-27-2021 End: 12-27-2021 ambulatory Gia Tammy Other [facility] Other Start: 12-27-2021 Office outpatient vi sit 15 minutes Gia Tammy [facility] Start: 11-28-2021 End: 11-28-2021 ambulatory Gia Tammy Other [facility] Other Start: 11-28-2021 Telephone encounter Gia Tammy [facility] Start: 11-24-2021 End: 11-24-2021 ambulatory Gia Tammy Other [facility] Other Start: 11-24-2021 Telephone encounter Gia Tammy [facility] Start: 03-30-2021 End: 03-31-2021 ambulatory MOE PARHAM Facility:[facility] Procedures Date Procedure Procedure Detail Performing Clinician Start: 05-27-2024 Follow-up visit Follow-up FERNIE HACKETT Start: 05-27-2024 Adult depression screening assessment Pfo 4 Start: 01-08-2024 Adult depression screening assessment Fernie Hackett [facility] Work Phone: Start: 11-26-2023 Adult depression screening assessment Pfo 1 Start: 11-16-2023 MULTIPLE LABS Not In Sy stem Ref Prov Start: 10-18-2023 Adult depression screening assessment Fernie Hackett DO Work Phone: Plan of Treatment Date Care Activity Detail Author Start: 09-30-2028 DTaP,Tdap and Td Vaccines (2 - Td or Tdap) DTaP,Tdap and Td Vaccines (2 - Td or Tdap) [facility] Start: 11-04-2025 Fall Risk Screening Fall Risk Screening [facility] Start: 10-07-2025 Fall Risk Screening Fall Risk Screening [facility] Start: 09-26-2025 Tobacco Screening Tobacco Screening [facility] Start: 08-27-2025 Adult BMI Screening Adult BMI Screening [facility] Start: 08-27-2025 Fall Risk Screening Fall Risk Screening [facility] Start: 08-20-2025 Adult BMI Screening Adult BMI Screening [facility] Start: 08-13-2025 Adult BMI Screening Adult BMI Screening [facility] Start: 08-06-2025 Tobacco Screening Tobacco Screening [facility] Start: 05-27-2025 Depression Screening Depression Screening [facility] Start: 05-07-2025 Fall Risk Screening Fall Risk Screening [facility] Start: 02-05-2025 Adult BMI Screening Adult BMI Screening [facility] Start: 02-05-2025 Tobacco Screening Tobacco Screening [facility] Start: 01-29-2025 Adult BMI Screening Adult BMI Screening [facility] Start: 01-29-2025 Tobacco Screening Tobacco Screening [facility] Start: 01-22-2025 Adult BMI Screening Adult BMI Screening [facility] Start: 01-22-2025 Tobacco Screening Tobacco Screening [facility] Start: 01-15-2025 Adult BMI Screening Adult BMI Screening [facility] Start: 01-13-2025 End: 01-13-2025 Patient encounter procedure 01/13/2025 12:40 PM EST Of fice Visit [facility] - [facility] Medicine [address] [place] [address] [facility] Start: 01-09-2025 Adult BMI Screening Adult BMI Screening [facility] Start: 01-09-2025 Tobacco Screening Tobacco Screening [facility] Start: 01-08-2025 Depression Screening Depression Screening [facility] Start: 01-08-2025 Fall Risk Screening Fall Risk Screening [facility] Start: 01-08-2025 Medicare Annual Wellness Visit Medicare Annual Wellness Visi t [facility] Start: 01-02-2025 Tobacco Screening Tobacco Screening [facility] Start: 12-26-2024 Adult BMI Screening Adult BMI Screening [facility] Start: 12-26-2024 Tobacco Screening Tobacco Screening [facility] Start: 12-19-2024 Adult BMI Screening Adult BMI Screening [facility] Start: 12-19-2024 Tobacco Screening Tobacco Screening [facility] Start: 12-15-2024 End: 12-15-2024 Patient encounter procedure 12/15/2024 12:30 PM EST Procedure visit [facility] [address] [place] [address] Ton Urbano MD [address] [place] [address] [facility] Start: 12-12-2024 Adult BMI Screening Adult BMI Screening [facility] Start: 12-10-2024 End: 12-10-2024 ambulatory 12/10/2024 9:30 AM EST Infusion Elida [facility] [address] [place] [phone] [facility] Start: 12-05-2024 Adult BMI Screening Adult BMI Screening [facility] Start: 12-05-2024 Tobacco Screening Tobacco Screening [facility] Start: 12-04-2024 End: 12-04-2024 Patient encounter procedure 12/04/2024 1:30 PM EST Off ice Visit [facility] - [facility] [address] [place] [address] Fernie Hackett DO [address] [place] [address] [facility] Start: 12-03-2024 End: 12-03-2024 ambulatory 12/03/2024 9:30 AM EST Infusion Elida Ireland [facility] - Medical Oncology [address] [place] [phone] Elida Ireland [facility] Start: 11-28-2024 Adult BMI Screening Adult BMI Screening [facility] Start: 11-28-2024 Tobacco Screening Tobacco Screening [facility] Start: 11-27-2024 End: 11-27-2024 Patient encounter procedure 11/27/2024 1:00 PM EST Off ice Visit [facility] [address] [place] [address] Fernie Hackett, DO [address] [facility] [address] [facility] Start: 11-26-2024 Adult BMI Screening Adult BMI Screening [facility] Start: 11-26-2024 Depression Screening Depression Screening [facility] Start: 11-26-2024 Fall Risk Screening Fall Risk Screening [facility] Start: 11-26-2024 Tobacco Screening Tobacco Screening [facility] Start: 11-26-2024 End: 11-26-2024 ambulatory 11/26/2024 9:30 AM EST Infusion Elida Ireland [facility] - Medical Oncology [address] [place] [phone] Elida L Elko [facility]cology Start: 11-21-2024 Adult BMI Screening Adult BMI Screening [facility] Start: 11-20-2024 Bacteria identified in Urine by Culture Urine Culture [facility] Start: 11-20-[address] [facility] Start: 11-18-2024 End: 11-18-2024 ambulatory 11/18/2024 11:30 AM EST Infusion Elida Ireland [facility] - [facility] Oncology [address] [place] [address] Elida Ireland [facility] Start: 11-11-2024 End: 11-11-2024 ambulatory 11/11/2024 9:30 AM EST Infusion Elida Ireland [facility] - [facility]cology [address] [place] [phone] Elida Ireland [facility] Start: 11-04-2024 End: 11-04-2024 ambulatory 11/04/2024 9:30 AM EST Infusion Elida Ireland [facility]cology [address] [place] [phone] Elida Ireland [facility] Start: 10-29-2024 End: 10-29-2024 ambulatory 10/29/2024 9:30 AM EST Infusion Elida Ireland [facility] [address] [place] [phone] Elida Ireland [facility] Start: 10-22-2024 End: 10-22-2024 ambulatory 10/22/2024 9:30 AM EST Infusion Elida Ireland [facility] [address] [place] [phone] Elida Ireland [facility] Start: 10-20-2024 Subsequent hospital visit by physician 10/20/2024 11:33 AM EST Hospital Encounter [facility] [address] [place] [address] Hypomagnesemia [facility] Comment on above: Hypomagnesemia Start: 10-18-2024 Adult BMI Screening Adult BMI Screening [facility] Start: 10-18-2024 Depression Screening Depression Screening [facility] Start: 10-18-2024 Tobacco Screening Tobacco Screening [facility] Start: 10-15-2024 End: 10-15-2024 ambulatory 10/15/2024 9:30 AM EST Infusion Elida Ireland [facility] Oncology [address] [place] [address] Elida Ireland [facility] Start: 10-08-2024 End: 10-08-2024 ambulatory 10/08/2024 9:30 AM EST Infusion Elida Ireland [facility] [address] [place] [phone] Elida Ireland [facility] Start: 10-07-2024 End: 10-07-2024 ambulatory 10/07/2024 9:30 AM EST Infusion Eldia Ireland [facility] [address] [place] [phone] Elida Ireland [facility] Start: 10-01-2024 End: 10-01-2024 ambulatory 10/01/2024 9:30 AM EST Infusion Elida Ireland [facility] [address] [place] [phone] Elida Ireland [facility] Start: 09-26-2024 End: 09-26-2024 Admission to same day surgery center 09/26/2024 12:30 PM EST - 09/26/2024 1:30 PM EST Surgery [facility] [address] [place] [phone] Daniel Guerrero, DO [address] [place] [address] ESOPHAGOGASTRODUODENOSCOPY DIAGNOSTIC [64502 (CPT )] [facility] Comment on above: ESOPHAGOGASTRODUODENOSCOPY DIAGNOSTIC [4 3235 (CPT )] Start: 09-26-2024 End: 09-26-2024 Esophagogastroduodenoscopy transoral diagnostic ESOPHAGOGASTRODUODENOSCOPY DIAGNOSTIC ross's esophagus 09/26/2024 12:30 PM EST [facility] Start: 09-26-2024 Subsequent hospital visit by physician 09/26/2024 12:30 PM EST Hospital Encounter [facility] [address] [place] [address] Daniel Guerrero, DO [address] [place] [address] [facility] Start: 09-25-2024 End: 09-25-2024 ambulatory 09/25/2024 3:40 PM EST Suppo rt Visit [facility] - Pre Admit [address] [facility] [facility] [facility] [place] [phone] [facility] Start: 09-24-2024 End: 09-24-2024 ambulatory 09/24/2024 9:30 AM EST Infusion Elida Ireland [facility] [address] [place] [phone] Elida Ireland [facility] Start: 09-17-2024 End: 09-17-2024 ambulatory 09/17/2024 9:30 AM EST Infusion Elida Ireland [facility] [address] [place] [phone] Elida Ireland [facility] Start: 09-10-2024 End: 09-10-2024 ambulatory 09/10/2024 9:30 AM EDT Infusion Elida Ireland [facility]cology [address] [place] [phone] [facility] Start: 09-03-2024 End: 09-03-2024 ambulatory 09/03/2024 9:30 AM EDT Infusion Elida Ireland [facility] [address] [place] [phone] Elida Ireland [facility] Start: 08-27-2024 End: 08-27-2024 ambulatory 08/27/2024 9:30 AM EDT Infusion Elida Ireland [facility]cology [address] [place] [phone] Elida Ireland [facility] Start: 08-20-2024 End: 08-20-2024 ambulatory 08/20/2024 9:30 AM EDT Infusion Elida Ireland [facility] [address] [place] [phone] Elida Ireland [facility] Start: 07-24-2024 Fall Risk Screening Fall Risk Screening [facility] Start: 07-13-2024 COVID-19 Vaccine () COVID-19 Vaccine () [facility] Start: 07-13-2024 COVID-19 Vaccine () COVID-19 Vaccine () [facility] Start: 05-27-2024 End: 05-27-2024 Patient encounter procedure 05/27/2024 1:30 PM EDT Off ice Visit [facility] [address] [place] [address] Fernie Hackett, DO [address], [place] [address] [facility] Start: 03-05-2024 End: 03-05-2024 ambulatory 03/05/2024 9:30 AM EDT Infusion Elida Ireland [facility] [address] [place] [phone] Elida Ireland [facility] Start: 02-27-2024 End: 02-27-2024 ambulatory 02/27/2024 9:30 AM EDT Infusion Elida Ireland [facility] [address] [place] [phone] Elida Ireland [facility] Start: 02-25-2024 End: 02-25-2024 Patient encounter procedure 02/25/2024 2:45 PM EDT Off ice Visit [facility] [address] [place] [address] Fernie Hackett, [address], [place] [address] [facility] Start: 02-20-2024 End: 02-20-2024 ambulatory 02/20/2024 9:30 AM EDT Infusion Elida Ireland [facility] [address] [place] [phone] Elida Ireland [facility] Start: 02-13-2024 End: 02-13-2024 ambulatory 02/13/2024 9:30 AM EDT Infusion Elida Ireland [facility] [address] [place] [phone] Elida Ireland [facility] Start: 02-06-2024 End: 02-06-2024 ambulatory 02/06/2024 9:30 AM EDT Infusion Elida Ireland [facility] [address] [place] [phone] Elida Ireland [facility] Start: 01-30-2024 End: 01-30-2024 ambulatory 01/30/2024 9:30 AM EDT Infusion Elida Ireland [facility] [address] [place] [phone] Elida Ireland [facility] Start: 01-23-2024 End: 01-23-2024 ambulatory 01/23/2024 9:30 AM EDT Infusion Elida Ireland [facility] [address] [place] [phone] Elida Ireland [facility] Start: 01-16-2024 End: 01-16-2024 ambulatory 01/16/2024 9:30 AM EST Infusion Elida Ireland [facility] [address] [place] [phone] Elida Ireland [facility] Start: 01-09-2024 End: 01-09-2024 ambulatory 01/09/2024 9:30 AM EST Infusion Elida Ireland [facility] [address] [place] [phone] Elida Ireland [facility] Start: 01-08-2024 End: 01-08-2024 Patient encounter procedure 01/08/2024 1:00 PM EST Off ice Visit [facility] [address] [place] [address] [facility] Start: 01-02-2024 End: 01-02-2024 ambulatory 01/02/2024 9:30 AM EST Infusion Elida Ireland [facility] [address] [place] [phone] Elida Ireland [facility] Start: 12-26-2023 End: 12-26-2023 ambulatory 12/26/2023 9:30 AM EST Infusion Elida Ireland [facility] [address] [place] [phone] Elida Ireland [facility] Start: 12-19-2023 End: 12-19-2023 ambulatory 12/19/2023 9:30 AM EST Infusion Elida Ireland [facility] [address] [place] [phone] Elida Ireland [facility] Start: 12-12-2023 Administration of varicella zoster vaccine Zoster (Shingles) Vaccine (1 of 2) [employer] Comment on above: Postponed from 03/12/2015 (Patient Refus ed) Start: 12-12-2023 Medicare Annual Wellness Visit Medicare Annual Wellness Visi t [employer] Start: 12-12-2023 End: 12-12-2023 ambulatory 12/12/2023 9:30 AM EST Infusion Elida Ireland [facility] [address] [place] [address] Elida Ireland [facility] Start: 12-05-2023 End: 12-05-2023 ambulatory 12/05/2023 9:30 AM EST Infusion Elida Ireland [facility] [address] [place] [phone] Elida Ireland [facility] Start: 11-28-2023 End: 11-28-2023 ambulatory 11/28/2023 9:30 AM EST Infusion Elida Ireland [facility] [address] [place] [phone] Elida Ireland [facility] Start: 11-26-2023 End: 11-26-2023 Patient encounter procedure 11/26/2023 1:30 PM EST Off ice Visit [facility] [address] [place] [address] Fernie Hackett, DO [address], [facility] [place] [address] [facility] Start: 11-21-2023 End: 11-21-2023 ambulatory 11/21/2023 9:30 AM EST Infusion Elida Ireland [facility] [address] [place] [phone] Elida Ireland [facility] Start: 07-13-2023 COVID-19 Vaccine ( season) COVID-19 Vaccine ( season) [facility] Start: 03-12-2015 Administration of varicella zoster vaccine Zoster (Shingles) Vaccine (1 of 2) [facility] Start: 1958 Adult BMI Follow Up Plan Adult BMI Follow Up Plan [facility] End: 11-21-2024 Comprehensive metabolic 2000 panel - Serum or Plasma Comprehensive metabolic panel Lab Routine Essential hypertension 1 Occurrences starting 11/21/2023 until 11/21/2024 [employer] Work Phone: Comment on above: 1 Occurrences starting 11/21/2023 until 11/21/2024 End: 09-04-2025 EMG [facility]G Neurology Routine Paresthesia of right lower extremity 1 Occurrences starting 09/04/2024 until 09/04/2025 [employer] Work Phone: Comment on above: 1 Occurrences starting 09/04/2024 until 09/04/2025 End: 09-04-2025 Esophagogastroduodenoscopy EGD GI Routine Ross's esophagus with dysplasia 1 Occurrences starting 09/04/2024 until 09/04/2025 [employer] Comment on above: 1 Occurrences starting 09/04/2024 until 09/04/2025 Esophagogastroduoden oscopy transoral diagnostic ESOPHAGOGASTRODUODENOSCOPY DIAGNOSTIC 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 [facility] End: 11-21-2024 Hemoglobin A1c/Hemoglobin.total in Blood Hemoglobin A1c Lab Routine Type 2 diabetes mellitus with stage 3b chronic kidney disease, with long-term current use of insulin ([facility]) 1 Occurrences starting 11/21/2023 until 11/21/2024 [employer] Comment on above: 1 Occurrences starting 11/21/2023 until 11/21/2024 End: 11-21-2024 Lipid panel Lipid panel Lab Routine Mixe d hyperlipidemia 1 Occurrences starting 11/21/2023 until 11/21/2024 [employer] Comment on above: 1 Occurrences starting 11/21/2023 until 11/21/2024 End: 11-18-2025 Magnesium [Mass/volume] in Serum or Plasma Magnesium Lab Routine Hypomagnesemia weekly for 52 Occurrences starting 11/18/2024 until 11/18/2025 [employer] Work Phone: Comment on above: weekly for 52 Occurrences starting 11/18 until 11/18/2025 End: 11-21-2024 Microalbumin - Albumin: Creatinine Urine Ratio Microalbumin - Albumin: Creatinine Urine Ratio Lab Routine Type 2 diabetes mellitus with stage 3b chronic kidney disease, with long-term current use of insulin ([facility]) 1 Occurrences starting 11/21/2023 until 11/21/2024 [facility] Comment on above: 1 Occurrences starting 11/21/2023 until 11/21/2024 End: 01-16-2025 Potassium [Moles/volume] in Serum or Plasma Potassium Lab Routine 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3mL Dose Fernie Furlong DO Work Phone: [facility] 07-29-2020 influenza, high dose seasonal, preservative-free Fernie Furlong DO Work Phone: [facility] 09-03-2019 influenza, high dose seasonal, preservative-free Fernie Furlong DO Work Phone: [facility] 09-30-2018 tetanus toxoid, redu kiran diphtheria toxoid, and acellular pertussis vaccine, adsorbed Fernie Furlong DO Work Phone: [facility] 09-19-2018 influenza, high dose seasonal, preservative-free Fernie Furlong DO Work Phone: [facility] 09-03-2017 influenza virus vacc ine, unspecified formulation Fernie Furlong DO Work Phone: [facility] 07-27-2015 influenza, seasonal, injectable, preservative free Fernie Furlong DO Work Phone: [facility] 07-27-2015 seasonal influenza, intradermal, preservative free Fernie Furlong DO Work Phone: [facility] 01-15-2015 zoster vaccine, live Fernie Furlong DO Work Phone: [facility] 01-15-2015 zoster vaccine, unspecified formulation Fernie Furlong DO Work Phone: [facility] 07-16-2014 influenza, seasonal, injectable Fernie Furlong DO Work Phone: [facility] 10-20-2013 pneumococcal conjuga te vaccine, 13 valent Fernie Furlong DO Work Phone: [facility] 08-30-2011 tetanus and diphther ia toxoids, not adsorbed, for adult use Fernie Furlong DO Work Phone: [facility] 08-20-2008 pneumococcal polysaccharide vaccine, 23 valent Fernie Furlong DO Work Phone: [facility] Payers Date Payer Category Payer Unknown 11-12-2015 [employer] Other (unspecified) [facility] [id number] .[id number] 11-12-2015 Private Health Insurance [facility] AAR SUPPLEMENT [id number] 11/12/2015-Present [phone] [address] [place] [address] 1.2.840.535255.1.13.424.2 .7.3.841712.315 09-12-2007 Medicare 1.2.840.656786. 1.13.424.2 .7.3.834852.315 11-12-1959 Medicare [id number] 11-12-1959 Unknown [id number] 1942 Unknown [id number] 2.16.840.1.625926.3.579.2 .647 1942 Unknown [id number] 2.16.840.1.037875.3.579.2 .593 1942 Unknown [id number] 2.16.840.1.823400.3.579.2 .593 1942 Unknown [id number] 2.16.840.1.808792.3.579.2 .593 1942 Unknown [id number] 2.16.840.1.577445.3.579.2 .593 1942 Unknown [id number] 2.16.840.1.626031.3.579.2 .593 1942 Unknown [id number] 2.16.840.1.163914.3.579.2 .593 1942 Unknown [id number] 2.16.840.1.509368.3.579.2 .593 1942 Unknown [id number] 2.16.840.1.804536.3.579.2 .593 1942 Unknown [id number] 2.16.840.1.229532.3.579.2 .593 1942 Unknown [id number] 2.16.840.1.926062.3.579.2 .593 1942 Unknown [id number] 2.16.840.1.770409.3.579.2 .593 1942 Unknown [id number] 2.16.840.1.559842.3.579.2 .1286 1942 Unknown [id number] 2.16.840.1.117544.3.579.2 .1285 1942 Unknown [id number] 2.16.840.1.034875.3.579.2 .1285 1942 Unknown [id number] 2.16.840.1.967085.3.579.2 .1285 1942 Unknown [id number] 2.16.840.1.300861.3.579.2 .1285 1942 Unknown [id number] 2.16.840.1.729206.3.579.2 .1285 1942 Unknown [id number] 2.16.840.1.413250.3.579.2 .1285 1942 Unknown [id number] 2.16840.1.816486.3.579.2 .1942 Unknown [id number] 2.16.840.1.435307.3.579.2 .1942 Unknown [id number] 2.16.840.1.039273.3.579.2 .1942 Unknown [id number] 2.16.840.1.314037.3.579.2 .1942 Unknown [id number] 2.16840.1.218205.3.579.2 .1285 1942 Unknown [id number] 2.16.840.1.278147.3.579.2 .1285 1942 Unknown [id number] 2.16.840.1.560486.3.579.2 .1285 1942 Unknown [id number] 2.16.840.1.683262.3.579.2 .1285 1942 Unknown [id number] 2.16.840.1.287165.3.579.2 .1285 1942 Unknown [id number] 2.16.840.1.264494.3.579.2 .1285 1942 Unknown [id number] 2.16840.1.236676.3.579.2 .1285 1942 Unknown [id number] 2.16.840.1.501626.3.579.2 .1285 1942 Unknown [id number] 2.16840.1.540249.3.579.2 .1285 1942 Unknown [id number] 2.840.1.444313.3.579.2 .1285 1942 Unknown [id number] 2.840.1.595056.3.579.2 .1285 1942 Unknown [id number] 2.840.1.312718.3.579.2 .1285 1942 Unknown [id number] 2.840.1.246377.3.579.2 .1285 1942 Unknown [id number] 2.840.1.880452.3.579.2 .1285 1942 Unknown [id number] 2.840.1.963179.3.579.2 .1285 1942 Unknown [id number] 2.840.1.119717.3.579.2 .1285 1942 Unknown [id number] 2.840.1.286567.3.579.2 .1285 1942 Unknown [id number] 2.840.1.933664.3.579.2 .1285 1942 Unknown [id number] 2.16840.1.193887.3.579.2 .1285 1942 Unknown [id number] 2.16840.1.625033.3.579.2 .1285 1942 Unknown [id number] 2.16840.1.579408.3.579.2 .128 1942 Unknown [id number] 2.16.840.1.163304.3.579.2 .1285 1942 Unknown [id number] 2.16.840.1.300898.3.579.2 .1285 1942 Unknown [id number] 2.16.840.1.471162.3.579.2 .1285 1942 Unknown [id number] 2.16.840.1.363844.3.579.2 .1285 1942 Unknown [id number] 2.16.840.1.079582.3.579.2 .1285 1942 Unknown [id number] 2.840.1.885396.3.579.2 .1285 1942 Unknown [id number] 2.840.1.004127.3.579.2 .1285 1942 Unknown [id number] 2.16.840.1.826619.3.579.2 .1285 1942 Unknown [id number] 2.840.1.108879.3.579.2 .1285 1942 Unknown [id number] 2.16840.1.111370.3.579.2 .1285 1942 Unknown [id number] 2.16840.1.292435.3.579.2 .1285 1942 Unknown [id number] 2.16.840.1.914983.3.579.2 .1285 1942 Unknown [id number] 2.16.840.1.745153.3.579.2 .1285 1942 Unknown [id number] 2.16.840.1.126411.3.579.2 .1285 1942 Unknown [id number] 2.16.840.1.691642.3.579.2 .1285 1942 Unknown [id number] 2.16.840.1.834362.3.579.2 .1285 1942 Unknown [id number] 2.16.840.1.554551.3.579.2 .1285 1942 Unknown [id number] 2.16.840.1.337125.3.579.2 .1285 1942 Unknown [id number] 2.16.840.1.332897.3.579.2 .1285 1942 Unknown [id number] 2.16.840.1.396805.3.579.2 .1285 1942 Unknown [id number] 2.16.840.1.074667.3.579.2 .1285 1942 Unknown [id number] 2.840.1.612788.3.579.2 .1285 1942 Unknown [id number] 2.16840.1.456336.3.579.2 .1285 1942 Unknown [id number] 2.840.1.212370.3.579.2 .1285 1942 Unknown [id number] 2.16.840.1.310917.3.579.2 .1285 1942 Unknown [id number] 2.16840.1.555609.3.579.2 .1285 1942 Unknown [id number] 2.16.840.1.026710.3.579.2 .1285 1942 Unknown [id number] 2.16.840.1.360291.3.579.2 .1285 1942 Unknown [id number] 2.16.840.1.076910.3.579.2 .1285 1942 Unknown [id number] 2.16.840.1.952707.3.579.2 .1285 1942 Unknown [id number] 2.16.840.1.984768.3.579.2 .1285 1942 Unknown [id number] 2.16.840.1.038391.3.579.2 .1285 1942 Unknown [id number] 2.16.840.1.621278.3.579.2 .1285 1942 Unknown [id number] 2.16.840.1.919956.3.579.2 .1285 1942 Unknown [id number] 2.16.840.1.627272.3.579.2 .1285 1942 Unknown [id number] 2.16.840.1.677826.3.579.2 .1285 1942 Unknown [id number] 2.16840.1.950904.3.579.2 .1285 1942 Unknown [id number] 2.16.840.1.291641.3.579.2 .1285 1942 Unknown [id number] 2.16.840.1.298288.3.579.2 .1285 1942 Unknown [id number] 2.16.840.1.495919.3.579.2 .1285 1942 Unknown [id number] 2.840.1.144939.3.579.2 .1285 1942 Unknown [id number] 2.16.840.1.884565.3.579.2 .1285 1942 Unknown [id number] 2.16.840.1.224695.3.579.2 .1285 1942 Unknown [id number] 2.16.840.1.135459.3.579.2 .1285 1942 Unknown [id number] 2.16.840.1.636677.3.579.2 .1285 1942 Unknown [id number] 2.16.840.1.667206.3.579.2 .1285 1942 Unknown [id number] 2.16.840.1.448321.3.579.2 .1285 1942 Unknown [id number] 2.16.840.1.751553.3.579.2 .1285 1942 Unknown [id number] 2.16.840.1.234792.3.579.2 .1285 1942 Unknown [id number] 2.16.840.1.617558.3.579.2 .1285 1942 Unknown [id number] 2.16.840.1.816241.3.579.2 .1285 1942 Unknown [id number] 2.16.840.1.734398.3.579.2 .1285 1942 Unknown [id number] 2.16.840.1.219761.3.579.2 .1285 1942 Unknown [id number] 2.16.840.1.232444.3.579.2 .1285 1942 Unknown [id number] 2.16.840.1.764650.3.579.2 .1285 1942 Unknown [id number] 2.16.840.1.062327.3.579.2 .1285 1942 Unknown [id number] 2.16.840.1.482098.3.579.2 .1285 1942 Unknown [id number] 2.16.840.1.937244.3.579.2 .1285 1942 Unknown [id number] 2.16.840.1.769541.3.579.2 .1285 1942 Unknown [id number] 2.16.840.1.425525.3.579.2 .1285 1942 Unknown [id number] 2.16.840.1.349098.3.579.2 .1286 1942 Unknown [id number] 2.16.840.1.910188.3.579.2 .1286 1942 Unknown [id number] 2.16.840.1.686443.3.579.2 .1286 1942 Unknown [id number] 2.16.840.1.997567.3.579.2 .128 1942 Unknown [id number] 2.16.840.1.124594.3.579.2 .1286 1942 Unknown [id number] 2.16.840.1.544683.3.579.2 .128 1942 Unknown [id number] 2.16.840.1.556726.3.579.2 .1286 1942 Unknown [id number] 2.16.840.1.366213.3.579.2 .128 1942 Unknown [id number] 2.16.840.1.965285.3.579.2 .128 1942 Unknown [id number] 2.16.840.1.461954.3.579.2 .128 1942 Unknown [id number] 2.16.840.1.824132.3.579.2 .128 1942 Unknown [id number] 2.16.840.1.447986.3.579.2 .128 1942 Unknown [id number] 2.16.840.1.743127.3.579.2 .1286 Private Health Insurance [facility] [id number] Self-pay Self Pay [id number] Social History Date Type Detail Facility Unknown if ever smoked [facility] Other Start: 10-18-2023 End: 01-08-2024 Sex Assigned At [facility] Start: 05-04-2017 End: 05-01-2024 Tobacco smoking status NHIS Never smoked tobacco [facility] Start: 05-04-2017 Tobacco use and exposure Smokeless tobacco non-user [facility] Start: 10-18-2023 End: 09-10-2024 Alcohol intake Current drinker of alcohol (finding) [facility] Start: 10-18-2023 End: 01-08-2024 Alcohol intake [facility] Adolescent depressio n screening assessment 0 [facility] Start: 1940 Sex Assigned At Not on file P [facility] Start: 1940 Sex Assigned At Female F [facility] Has the electric, [employer] s, oil, or water company threatened to shut off services in your home in past 12Mo No [facility] Are you now , , , , never or living with a partner? [facility] How often to you hav e a drink containing alcohol? Never [facility] Do you feel stress - tense, restless, nervous, or anxious, or unable to sleep at night because your mind is troubled all the time - these days [OSQ] Not at all [facility] Start: 06-17-2015 End: 11-21-2024 Sex Female (finding) [facility] Start: 09-26-2024 End: 09-30-2024 Alcoholic beverage intake Ex-drinker (finding) [facility] Medical Equipment Procedure Code Equipment Code Equipment Origin al Text Equipment Identifier Dates 1 strip by other route in the morning and 1 strip before bedtime. [id number] Start: 08-30-2023 End: 11-18-2024 1 Lancet. by miscellaneous route in the morning and 1 Lancet. before bedtime. [id number] Start: 08-30-2023 USE 1 NEEDLE THR EE TIMES A DAY [id number] Start: 07-23-2023 USE 1 NEEDLE THR EE TIMES A DAY [id number] Start: 07-17-2024 1 strip by other route in the morning and 1 strip before bedtime. [id number] Start: 11-18-2024 Clinical Notes 12-27-2021 to 12-01-2024 Telephone Encounter - [facility] - 12/01/2024 2:12 AM ESTTelephone Encounter - [facility] - 12/01/2024 2:12 AM ESTTelephone Encounter - [facility] - 12/01/2024 2:12 AM EST Note Date & Type Note Facility 12-01-2024 Miscellaneous Notes Formattin g of this note might be different from the original. Contract: 198 Joanie Hobzy [place] [facility] called for orders to have patient sent to hospital for evaluation OC198 I called Dr Hackett [facility] documented in this encounter [facility] 12-01-2024 Telephone encount er Note Contract: 198 Joanie Torrez [facility] called for orders to have patient sent to hospital for evaluation [facility] 12-01-2024 Telephone encount er Note OC198 I called Dr Hackett & [facility] 11-24-2024 History of Presen t illness Narrative Patient's spouse called [facility] nurse this morning with concerns about [...] possible. Please advise. documented in this encounter [facility] 11-24-2024 Miscellaneous Notes Formattin g of this note is different from the original. Patient's spouse called [facility] nurse this morning with concerns about [...] be septic Notified documented [facility] 11-24-2024 Telephone encount er Note Patient's spouse called [facility] nurse this morning with concerns about [...] today by PCP if possible. Please advise. [employer] 11-24-2024 Telephone encount er Note She has altered mental status she should go to the emergency room. She could be septic [facility] 11-24-2024 Telephone encount er Note Notified [facility] 11-17-2024 History of Presen t illness Narrative Diabetic Supplies: After numerous attempts by and JARON we have been unable to get in touch with [facility] regarding patient diabetes supplies. Patient is currently out of test strips and would like order sent to new DME supplier. Could you please fax order to [facility] for [employer] meter and strips. Fax number: [phone]. [facility] Chronic Care Nurse Projection Printer [phone] documented in this encounter [facility] 11-17-2024 Miscellaneous Notes Formattin g of this note is different from the original. Diabetic Supplies: After numerous attempts by and JARON we have been unable to get in touch with [facility] regarding patient diabetes supplies. Patient is currently out of test strips and would like order sent to new DME supplier. Could you please fax order to [facility] for TruMetrix meter and strips. Fax number: [phone]. [facility] Chronic Care Nurse Projection Printer [phone] Please fax to [employer]. Prescriptions were printed documented in this encounter [facility] 11-17-2024 Telephone encount er Note Diabetic Supplies: After numerous attempts by and JARON we have been unable to get in touch with [facility] regarding patient diabetes supplies. Patient is currently out of test strips and would like order sent to new DME supplier. Could you please fax order to [facility] for TruMetrix meter and strips. Fax number: [phone]. [facility] Chronic Care Nurse Projection Printer [phone] [facility] 11-17-2024 Telephone encount er Note Please fax to [employer]. Prescriptions were printed [facility] 11-04-2024 History of Presen t illness Narrative Patient is here for 2g IV magnesium as scheduled. Mg level 1.7. PIV initiated, blood return noted, flushes with ease. NS started at KVO. Magnesium infused over 2 hours. Line flushed. Pt tolerated well. PIV dc'd, pressure dressing applied. Pt dc'd in stable ambulatory condition with spouse. documented in this encounter [facility] 10-20-2024 History of Presen t illness Narrative Patient mag level is 1.9, will not need magnesium infusion this week. Patient made aware and will continue on with next week's lab draw. documented in this encounter [facility] 10-07-2024 Miscellaneous Notes Formattin g of this note might be different from the original. Call patient and see if she requested this. It was stopped in the summertime documented in this encounter [facility] 10-07-2024 Telephone encount er Note Call patient and see if she requested this. It was stopped in the summertime [facility] 10-07-2024 History of Presen t illness Narrative Patient is here for 2g IV magnesium as scheduled. Mg level 1.7. PIV initiated, blood return noted, flushes with ease. NS started at KVO. Magnesium infused over 2 hours. Line flushed. Pt tolerated well. PIV dc'd, pressure dressing applied. Pt dc'd in stable ambulatory condition with spouse. documented in this encounter [facility] 10-01-2024 History of Presen t illness [...] updated treatment calendar. documented in this encounter [facility] 09-10-2024 Miscellaneous Notes Formattin g of this note might be different from the original. NEW EMG/NCV ORDER First attempt- Left Voicemail Dx: Paresthesia of right lower extremity [R20.2]/ Referred by: Fernie Hackett DO Referred to: Please schedule patient in the next available appointment with provider. Patient returned call and patient was scheduled for next available EMG in [place]. Patient was placed on waitlist. Appointment: 12/15/2024 at 12:30pm with Dr. Urbano documented in this encounter [facility] 09-10-2024 Telephone encount er Note NEW EMG/NCV ORDER First attempt- Left Voicemail Dx: Paresthesia of right lower extremity [R20.2]/ Referred by: Fernie Hackett DO Referred to: Please schedule patient in the next available appointment with provider. [facility] 09-10-2024 Telephone encount er Note Patient returned call and patient was scheduled for next available EMG in [place]. Patient was placed on waitlist. Appointment: 12/15/2024 at 12:30pm with Dr. Urbano [facility] 09-10-2024 History of Presen t illness Narrative Pt here for 2g IV magnesium. Mg level 1.7. PIV initiated to RFA. Brisk blood return verified, and flushes with ease. Magnesium infused over 2 hours without incident. Pt tolerated well. Flushed with saline and PIV dc'd. Pt dc'd in stable ambulatory condition. documented in this encounter [facility] 09-01-2024 History of Presen t illness Narrative Pt magnesium level 1.8. called to notify patient to see if shed like to notify dr medina office to see if she should still get mg infusion since she's WNL. Pt requests to take the week off and recheck mg level in one week. documented in this encounter [facility] 08-27-2024 History of Presen t illness Narrative Patient is here for 2g IV magnesium as scheduled. Mg level 1.6. PIV initiated, blood return noted, flushes with ease. NS started at KVO. Magnesium infused over 2 hours. Line flushed. Pt tolerated well. PIV dc'd, pressure dressing applied. Pt dc'd in stable ambulatory condition with spouse. documented in this encounter [facility] 08-22-2024 History of Presen t illness Narrative When was the last Refill? 05/27/24 Is this medication Historical? [place] [facility] preferred Pharmacy? [facility] When was the last OV with provider? 05/27/24 When is the next scheduled visit? 11/27/24 documented in this encounter [facility] 08-20-2024 History of Presen t illness Narrative Pt here for 2g IV magnesium. Mg level 1.6. PIV initiated to RFA. Brisk blood return noted, flushes with ease. Magnesium infused over 2 hours. Line flushed. Pt tolerated well. PIV dc'd. Pressure dressing applied. Dc'd in stable ambulatory condition. documented in this encounter [facility] 08-13-2024 History of Presen t illness Narrative Pt here for 2g IV magnesium per pt reqeust. Mg level 1.6. PIV initiated to LFA. Brisk blood return noted, flushes with ease. NS started at KVO. Magnesium infused over 2 hours. Pt tolerated well. PIV dc'd. Pressure dressing applied. Dc'd in stable ambulatory condition. documented in this encounter [facility] 02-13-2024 History of Presen t illness [...] condition. documented in this encounter [facility] 02-06-2024 History of Presen t illness Narrative Pt here for 2g IV magnesium as scheduled for mg level 1.8. Tolerating infusions well. PIV initiated to RFA. Brisk blood return noted, flushes with ease. NS started at KVO. Magnesium infused over 2 hours. Pt tolerated well. PIV dc'd, pressure dressing applied. Pt dc'd in stable ambulatory condition. documented in this encounter [facility] 01-30-2024 History of Presen t illness Narrative Patient is here for 2g IV magnesium as scheduled. Mg level 1.8. PIV initiated, blood return noted, flushes with ease. NS started at KVO. Magnesium infused over 2 hours. Line flushed. Pt tolerated well. PIV dc'd, pressure dressing applied. Pt dc'd in stable ambulatory condition with spouse. documented in this encounter [facility] 01-23-2024 History of Presen t illness Narrative Patient is here for 2g IV magnesium as scheduled. Mg level 1.7. PIV initiated on second attempt, blood return noted, flushes with ease. NS started at KVO. Magnesium infused over 2 hours. Line flushed. Pt tolerated well. PIV dc'd, pressure dressing applied. Pt dc'd in stable ambulatory condition with spouse. documented in this encounter [facility] 01-16-2024 History of Presen t illness [...] of upcoming appointments. documented in this encounter [facility] 01-09-2024 History of Presen t illness Narrative Pt here for 2g IV magnesium for mg level of 1.7. Tolerating infusions well. PIV initiated to RFA. Brisk blood return, flushes with ease. NS started at KVO. Magnesium infused over 2 hours. Pt tolerated well. PIV flushed and dc'd. Pressure dressing applied. Dc'd in stable condition. documented in this encounter [facility] 01-08-2024 History of Presen t illness [...] Do you have a durable power of civil attorney?: Yes Cognitive Screening Do you have [...] year (around 01/08/2025). documented in this encounter [employer] 01-02-2024 History of Presen t illness Narrative Patient is here for 2g IV magnesium as scheduled. Mg level 1.7. PIV initiated on third attempt, blood return noted, flushes with ease. NS started at KVO. Magnesium infused over 2 hours. Line flushed. Pt tolerated well. PIV dc'd, pressure dressing applied. Pt dc'd in stable ambulatory condition with spouse. documented in this encounter [facility] 12-26-2023 History of Presen t illness Narrative Pt here for 2g IV magnesium infusion as scheduled. Mg level 1.6. Tolerating infusions well. PIV initiated to RFA. Brisk blood return noted, flushes with ease. NS started at KVO. Magnesium infused over 2 hours. Pt tolerated well. Line flushed. PIV dc'd. Pressure dressing applied. Pt v/u of future appointments. documented in this encounter [facility] 12-19-2023 History of Presen t illness Narrative Pt here for 4g IV magnesium infusion as scheduled. Mg level 1.5. Tolerating infusions well. PIV initiated to LFA. Brisk blood return noted, flushes with ease. NS started at KVO. Magnesium infused over 4 hours. Pt tolerated well. Line flushed. PIV dc'd. Pressure dressing applied. Pt v/u of future appointments. documented in this encounter [facility] 12-12-2023 History of Presen t illness Narrative Patient is here for 2g IV magnesium as scheduled. Mg level 1.7. PIV initiated blood return noted, flushes with ease. NS started at KVO. Magnesium infused over 2 hours. Line flushed. Pt tolerated well. PIV dc'd, pressure dressing applied. Pt dc'd in stable ambulatory condition with spouse. documented in this encounter [facility] 12-04-2023 Miscellaneous Notes Formattin g of this note might be different from the original. Patient called and these are both covered by insurance and she would like these sent in instead of what the alternative was documented in this encounter [facility] 12-04-2023 Telephone encount er Note Patient called and these are both covered by insurance and she would like these sent in instead of what the alternative was [facility] 11-28-2023 History of Presen t illness Narrative Patient here for 2g IV magnesium as scheduled. Mg level 1.8. PIV initiated to LFA Brisk blood return noted, flushes with ease. NS started at KVO. Magnesium infused over 2 hours. Line flushed. Pt tolerated well. PIV dc'd, pressure dressing applied. Pt dc'd in stable ambulatory condition with spouse. documented in this encounter [facility] 11-21-2023 History of Presen t illness [...] Treatment calendar provided. documented in this encounter [facility] 11-19-2023 Note Continue statin [facility] 11-19-2023 Note Hypertension is elev ated in office today was 192/86 and repeat b/p improved 158/80 Typically b/p is 122-150/60-80 at home and at other physician offices. Continue all meds ramipril, coreg [facility] 11-19-2023 Note Coronary artery dise ase is stable Continue GDMT- ASA, lipitor, coreg continue risk factor modifications- heart healthy diet, regular exercise as tolerated and continue all medications. [facility] 11-19-2023 Note Patient here for 1 y ear follow up CAD, hypertension, and venous insufficiency. Had labs a week or so ago for boot and shoe repairman and says she's in the process of [...] All other systems reviewed and are negative. [facility] 11-19-2023 Note UTP CARDIOLOGY PROGR ESS [...] labs a week or so ago for boot and shoe repairman and says she's in the process of [...] 2.05, BUN 64, (more content not included)... [facility] 08-23-2023 Evaluation note Encounter Date Diagnosis [...] the PCP to adjust her diabetic medications. 12 Aug, 2023 Secondary hyperparathyroidism (ICD-10 - N25.81) She has [...] magnesium diet and provide information about it. [facility] Other 03-16-2023 NoteCONSULTATION CONSULTATION DATE: 01/25/2023 HISTORY: [...] and to talk with Dr. Munoz, their boot and shoe repairman, to confirm that this was acceptable, considering her stage 3 kidney disease. Other than that, we will see her in three months' time at the clinic, unless otherwise indicated. Patient and agree with this plan.[facility] 01-25-2023 Evaluation note* Encounter Date Diagnosis [...] magnesium diet and provide information about it. [facility] Chief Complaint: Patient being seen via telephone call for 6 mo follow up hypertension, CAD, and CKD. She denies chest pain and increased SOB with exertion. C/o increased LE edema but denies weight gain. Says her boot and shoe repairman Dr. Munoz advised her to call him [...] enzyme inhibitor/receptor micki. 4. Follow up with [facility] Cardiology in the next 2 [...] creatinine and electrolytes; she follows with her boot and shoe repairman Leg swelling is likely related to venous [...] was initiated by the patient and conducted [id number] with use of audio-only real time telephone communication between patient and provider for a virtual visit. Verbal consent to provide and bill for this service was obtained on 12/06/2022. No signature was obtained due to the COVID-19 pandemic. Moe Parham MD, MPH, [facility], [facility], [facility] Interventional Cardiology Pager Email: [email or web address] NoteCONSULTATION CONSULTATION DATE: 10/26/2022 HISTORY OF PRESENT ILLNESS: This is a very pleasant, 82-year-old female who presents with her for a three month follow up. Today, she reports 0/10 pain and is overall doing well. At her last appointment on 08/02/2022, we had switched her medications from Gambier to tramadol extended release 100 mg per day, which she feels is helping very much. It is lasting for her better than the Gambier. She is also on Lyrica 75 mg [...] indicated, and patient agrees with this plan.[id number] NoteCONSULTATION CONSULTATION DATE: 08/02/2022 HISTORY OF PRESENT ILLNESS: This is a pleasant, 81-year-old female, accompanied by her , returning to the clinic for a three month follow up for chronic lower back pain. She was last seen on 04/25/[address] Stern which, at that time, her Gambier was decreased to 5/325 daily p.r.n., which [...] increased to 100 mg extended release daily. Gambier will be discontinued. Education was given regarding use of the menthol heat rub with Voltaren gel and heat application to her back. Vitamin and nutrition importance was discussed. Patient will be seen back in the clinic in three months' time, unless otherwise indicated, and patient agrees to this.[id number] Evaluation note* Encounter Date Diagnosis Assessment Notes [...] any recent gout flare. She takes allopurinol. [facility] Other 06-22-2022 Evaluation note* Encounter Date Diagnosis Assessment Notes Treatment Notes Treatment Clinical Notes Apr, Hypertensive chronic kidney disease with stage 1 through stage 4 chronic kidney disease, or unspecified chronic kidney disease (ICD-10 - I12.9) [facility] Other 06-14-2022 NoteCONSULTATION CONSULTATION DATE: 04/25/2022 CHIEF [...] 4/10. She is managing the pain with Gambier 5/325 one table daily and tramadol 50 [...] the patient's pain medication which would be Gambier 5/325 one tablet daily and tramadol 50 [...] Approved by: DR LUISA STERN . 05/02/2022 08:52:00[facility]05-26-2022 Evaluation note* Encounter Date Diagnosis Assessment Notes [...] any recent gout flare. She takes allopurinol. [facility] Other 05-19-2022 NoteCONSULTATION CONSULTATION DATE: 03/30/2022 This [...] She was given a 14-day prescription of Gambier 5/325 b.i.d. to help with the acuity of her post-procedure pain. Today she reports the Gambier is gone and she is back on [...] and rather we will maintain her on Gambier 5/325 b.i.d. which proved to be the [...] and Approved by: JONNY CAMPUZANO . 04/03/2022 15:07:00[facility]02-15-2022 Evaluation note* Encounter Date Diagnosis Assessment Notes [...] any recent gout flare. She takes allopurinol. [employer] Other Evaluation noteNo InformationNortH[facility] [employer] Other Evaluation note* Diagnosis Hypomagnesemia- Primary Disorders of magnesium metabolism documented in this encounter [facility]* Diagnosis Hypomagnesemia- Primary Disorders of magnesium metabolism documented in this encounter [facility]* Diagnosis Mixed hyperlipidemia- Primary Type 2 diabetes mellitus with stage 3b chronic kidney disease, with long-term current use of insulin ([facility]) Essential hypertension Unspecified essential hypertension documented in this encounter [facility] noteNo assessment information available [facility] Work Phone: Evaluation note* Diagnosis Hypomagnesemia- Primary Disorders of magnesium metabolism documented in this [facility]* Diagnosis Hypomagnesemia- Primary Disorders of magnesium metabolism documented in this [facility]* Diagnosis Hypomagnesemia- Primary Disorders of magnesium metabolism documented in this [facility]* Diagnosis Hypomagnesemia- Primary Disorders of magnesium metabolism documented in this [facility]* Diagnosis Medicare annual wellness visit, subsequent- Primary Screening for depression documented in this encounter [facility]* Diagnosis 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 ([facility])- Primary documented in this [facility]* Diagnosis Hypomagnesemia- Primary Disorders of magnesium metabolism documented in this [facility]* Diagnosis Onset Date Resolution Status Anemia of renal disease acut e CKD (chronic kidney disease) stage 3, GFR 30-59 ml/min acute [id number] acute Hyperuricemia acute Hypomagnesemia acute Secondary hyperparathyroidism acute Type 2 diabetes mellitus wit h diabetic chronic kidney disease acute [facility] Work Phone: Evaluation note* Diagnosis Hypomagnesemia- Primary Disorders of magnesium metabolism documented in this [facility]* Diagnosis Hypomagnesemia- Primary Disorders of magnesium metabolism documented in this [facility]* Diagnosis 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 ([facility])- Primary Morbid obesity ([facility]) Morbid obesity documented in this [facility]* Diagnosis Hypomagnesemia- Primary Disorders of magnesium metabolism documented in this [facility]* Diagnosis Paresthesia of right lower extremity- Primary Ross's esophagus with dysplasia documented in this [facility]* Diagnosis Hypomagnesemia- Primary Disorders of magnesium metabolism documented in this [facility]* Diagnosis Hypomagnesemia- Primary Disorders of magnesium metabolism documented in this [facility]* Diagnosis Type 2 diabetes mellitus [...] IN LOWER BACK Hospitalization History see above [facility] Other History general Narrative - Reported* Type [...] HEART CATH 03/30/2021 Hospitalization History see above [facility] Other [facility] Thread general Narrative - Reported* Type Description Date [...] IN LOWER BACK Hospitalization History see above [facility] Other InstructionsNot on filedocumented in this encounter [...] Health SystemInstructionsNot on filedocumented in this encounter [facility] Summary Purpose Family History Relationship Condition [...] kidney disease) stage 3, GFR 30-59 ml/min [id number] Hyperuricemia Hypomagnesemia Secondary hyperparathyroidism Type 2 diabetes mellitus with diabetic chronic kidney disease Chief Complaint Admit Date Unknown November 20, 2024 4: 20am Additional Source Comments INFORMATION SOURCE (unrecogn ized section and content) DATE CREATED AUTHOR 04/06/2021 [facility] DATE CREATED AUTHOR AUTHOR'S ORGANIZ ATION 05/12/2022 [facility] DATE CREATED AUTHOR AUTHOR'S ORGANIZ ATION 03/15/2023 [facility] DATE CREATED AUTHOR AUTHOR'S ORGANIZ ATION 11/19/2023 [facility] DATE CREATED AUTHOR AUTHOR'S ORGANIZ ATION 05/31/2024 [facility] DATE CREATED AUTHOR AUTHOR'S ORGANIZ ATION 06/03/2024 [facility] DATE CREATED AUTHOR AUTHOR'S ORGANIZ ATION 11/07/2024 [facility] DATE CREATED AUTHOR AUTHOR'S ORGANIZ ATION 11/23/2024 [facility] DATE CREATED AUTHOR AUTHOR'S ORGANIZ ATION 11/26/2024 [facility] REASON FOR VISIT (unrecogniz ed section and [...] Onset Date Comments EMG NEW PATIENT 09/10/2024 Reason Onset Date Comments orders for patient to be sent out to hospital fo r evaluation 12/01/2024 Care Teams (unrecognized sec tion and content) [...] May 01, 2024 End: May 01, 2024 Grand Scribe Relationship Specialty Start Date End Date Fernie Hackett DO [address], [place] [address] PCP - General Family Medicine 05/09/17 Grand Scribe Relationship Specialty Start Date End Date Fernie Hackett DO [address] [place] [address] PCP - General Family Medicine 05/09/17 Grand Scribe Relationship Specialty Start Date End Date Fernie Hackett DO [address], [place] [address] PCP - General Family Medicine 05/09/17 Grand Scribe Relationship Specialty Start Date End Date Fernie Hackett DO [address], [place] [address] PCP - General Family Medicine 05/09/17 Grand Scribe Relationship Specialty Start Date End Date Fernie Hackett DO [address], [place] [address] PCP - General Family Medicine 05/09/17 Team Status: Inactive Member Role Status Dates Fernie MolinamonicaDO poornima Primary Care Provider Active Gia Munoz MD Attending Provider Active Grand Scribe Relationship Specialty Start Date End Date Fernie Hackett DO [address], [place] [address] PCP - General Family Medicine 05/09/17 Grand Scribe Relationship Specialty Start Date End Date Fernie Hackett DO [address], [place] [address] PCP - General Family Medicine 05/09/17 Grand Scribe Relationship Specialty Start Date End Date Fernie Hackett DO [address], [place] [address] PCP - General Family Medicine 05/09/17 Grand Scribe Relationship Specialty Start Date End Date Fernie Hackett DO [address], [place] [address] PCP - General Family Medicine 05/09/17 Grand Scribe Relationship Specialty Start Date End Date Fernie Hackett DO [address], [place] [address] PCP - General Family Medicine 05/09/17 Grand Scribe Relationship Specialty Start Date End Date Fernie Hackett DO [address], [place] [address] PCP - General Family Medicine 05/09/17 Grand Scribe Relationship Specialty Start Date End Date Ferine Hackett DO [address], [place] [address] PCP - General Family Medicine 05/09/17 Grand Scribe Relationship Specialty Start Date End Date Fernie Hackett DO [address], [place] [address] PCP - General Family Medicine 05/09/17 Flori Mon [facility] Nurse - [employer] 06/26/24 Grand Scribe Relationship Specialty Start Date End Date Fernie Hackett DO [address], [place] [address] PCP - General Family Medicine 05/09/17 Flori Mon [facility] Nurse - [employer] 06/26/24 Grand Scribe Relationship Specialty Start Date End Date Fernie Hackett DO [address], [place] [address] PCP - General Family Medicine 05/09/17 Flori Mon [facility] Nurse - [employer] 06/26/24 Grand Scribe Relationship Specialty Start Date End Date Fernie Hackett [address], [place] [address] PCP - General Family Medicine 05/09/17 Flori Mon [facility] Nurse - [employer] 06/26/24 Grand Scribe Relationship Specialty Start Date End Date TracymonicaFernie noguera [address], [place] [address] PCP - General Family Medicine 05/09/17 Flori Mon [facility] Nurse - [employer] 06/26/24 Grand Scribe Relationship Specialty Start Date End Date Tracyangel luisFernie [address], [place] [address] PCP - General Family Medicine 05/09/17 Flori Mon [facility] Nurse - [employer] 06/26/24 Grand Scribe Relationship Specialty Start Date End Date Fernie Hackett [address], [place] [address] PCP - General Family Medicine 05/09/17 Flori Mon [facility] Nurse - [employer] 06/26/24 Grand Scribe Relationship Specialty Start Date End Date Tracyangel luisFernie [address], [place] [address] PCP - General Family Medicine 05/09/17 Flori Mon [facility] Nurse - [employer] 06/26/24 Grand Scribe Relationship Specialty Start Date End Date RoxannFernieDO [address], [place] [address] PCP - General Family Medicine 05/09/17 Flori Mon [facility] Nurse - [employer] 06/26/24 Grand Scribe Relationship Specialty Start Date End Date Fernie Hackett DO [address], [place] [address] PCP - General Family Medicine 05/09/17 Flori Mon [facility] Nurse - [employer] 06/26/24 Grand Scribe Relationship Specialty Start Date End Date Fernie Hackett DO [address], [place] [address] PCP - General Family Medicine 05/09/17 Flori Mon [facility] Nurse - [employer] 06/26/24 Grand Scribe Relationship Specialty Start Date End Date Fernie Hackett DO [address], [place] [address] PCP - General Family Medicine 05/09/17 Flori Mon [facility] Nurse - [employer] 06/26/24 Grand Scribe Relationship Specialty Start Date End Date Fernie Hackett DO [address], [place] [address] PCP - General Family Medicine 05/09/17 Flori Mon [facility] Nurse - [employer] 06/26/24 Grand Scribe Relationship Specialty Start Date End Date Fernie Hackett DO [address], [place] [address] PCP - General Family Medicine 05/09/17 Flori Mon [facility] Nurse - [employer] 06/26/24 Grand Scribe Relationship Specialty Start Date End Date Fernie Hackett DO [address] [facility], [place] [address] PCP - General Family Medicine 05/09/17 Claridino Costa [facility] Nurse - [employer] 11/17/24 Goals (unrecognized section and content) Goals may [...] BE BASED ON THE PRIMARY CLINICAL RECORDS. [facility] [employer] provides no warranty or guarantee of the accuracy or completeness of information in this document.
[2024-12-01 03:58] LABS: Basophils Percent Auto 0.4 % (0.2-2.0); Eosinophils Absolute Auto 0.3 10^3/uL (0.0-0.7); Eosinophils Percent Auto 2.5 % (0.9-7.0); Hematocrit 36.2 % (36.0-48.0); Hemoglobin 11.4 g/dL (12.0-16.0); Immature Granulocytes Abs Auto 0.11 10^3/uL (0.00-0.03); Lymphocytes Percent Auto 17.5 % (20.5-60.0); Mean Corpuscular HGB Conc 31.5 g/dL (29.9-35.2); Mean Corpuscular Hemoglobin 29.8 pg (26.7-34.0); Mean Corpuscular Volume 94.5 fL (81.0-99.0); Mean Platelet Volume 10.6 fL (9.5-13.5); Monocytes Absolute Auto 1.3 10^3/uL (0.3-0.8); Monocytes Percent Auto 11.1 % (1.7-12.0); Neutrophils Absolute Auto 7.7 10^3/uL (1.4-6.5); Neutrophils Percent Auto 67.5 % (43.0-75.0); Platelet Count 243 10^3/uL (150-450); Red Blood Count 3.83 10^6/uL (4.20-5.40); White Blood Count 11.4 10^3/uL (4.0-11.0)
--- NOTE | 2024-12-01 04:02 | PC.NURSE ---
this patient arrives via ems form the [facility], and only has been there only 2 days. per [facility] staff this patient fell early in the night and is disoriented. at this time the patient complains of back, and neck pain
[2024-12-01 04:13] LABS: Influenza Virus A Antigen Negative; Influenza Virus B Antigen Negative; Internal Control Within Normal Limits; Respiratory Syncytial Virus Not Detected (NOT DETECTE); SARS-CoV-2 Ag NEGATIVE (NEGATIVE)
[2024-12-01 04:18] LABS: Alanine Aminotransferase 34 U/L (14-59); Albumin Globulin Ratio 0.8; Albumin Level 2.9 g/dL (3.4-5.0); Alkaline Phosphatase 109 U/L (46-116); Anion Gap 8.6; Aspartate Amino Transferase 29 U/L (15-37); BUN Creatinine Ratio 18.7; Bilirubin Total 0.5 mg/dL (0.2-1.0); Calcium 9.5 mg/dL (8.5-10.1); Carbon Dioxide 32.3 mmol/L (21.0-32.0); Chloride 105 mmol/L (98-107); Estimated GFR (African America 21 (>=60 mL/min/1.73m^2); Estimated GFR (Non-African Ame 17 (>=60 mL/min/1.73m^2); Globulin 3.6 g/dL; Glucose 148 mg/dL (74-106); Magnesium 1.9 mg/dL (1.8-2.4); Potassium 3.9 mmol/L (3.5-5.1); Sodium 142 mmol/L (136-145); Total Protein 6.5 g/dL (6.4-8.2)
[2024-12-01 04:20] LABS: Lactate/Lactic Acid 1.5 mmol/L (0.4-2.0)
[2024-12-01 04:21] LABS: Bilirubin Urine NEGATIVE (NEGATIVE); Blood Urine TRACE-I (NEGATIVE); Clarity Urine CLEAR (CLEAR); Color Urine LT. YELLOW (YELLOW); Glucose Urine UA NEGATIVE (NEGATIVE); Ketones Urine NEGATIVE (NEGATIVE); Leukocyte Esterase Urine SMALL (NEGATIVE); Nitrite Urine NEGATIVE (NEGATIVE); Protein Urine 100 mg/dL (NEG/TRACE); Urobilinogen Urine 0.2 EU/dL (0.2-1.0)
[2024-12-01 04:23] LABS: Urine Microscopic Indicated YES
[2024-12-01 04:28] LABS: Amorphous Sediment Urine MANY; Bacteria Urine SMALL #/HPF (NONE SEEN); Cast Seen? NONE SEEN #/LPF (NONE SEEN); Crystals Seen? Seen #/HPF (None Seen); Mucus Urine NONE SEEN (NONE SEEN); Squamous Epithelial Cell Urine RARE #/LPF (NONE/RARE); Urine Culture Indicated YES
== END 2024-12-01 08:30 | disposition home or self-care (01) ==
PROVIDERS: Emergency Provider Emergency Medicine; PCP Family Medicine
DX: R41.0 Disorientation, unspecified (principal); Z90.710 Acquired absence of both cervix and uterus; Z90.49 Acquired absence of other specified parts of digestive tract; Z91.81 History of falling
CPT/HCPCS: 36415; 70450; 71045; 72125; 80053; 81001; 83605; 83735; 85025; 87086; 87420; 87804; 87811; 93005; 99285

== ENCOUNTER 2024-12-05 12:14 | Inpatient (IN) | payer MEDICARE, SELFPAY ==
[2024-12-05] VITALS (36 sets, daily range): BP systolic 125–180; BP diastolic 68–82; PULSE 70–91; TEMP 36.8–37.2; O2SAT 90–99; BMI 39.2; BMI 42.5
[2024-12-05 12:47] LABS: Glucometer 173 mg/dL (74-106)
--- NOTE | 2024-12-05 12:56 | ECG_ITS ---
The [facility] Test Date: 2024-12-05 Pat Name: DAVID DUGAN Department: Room: - Gender: Female [employer] Director: : 1940 Requested By: Marcelino Alva Order Number: [id number] Reading MD: MONICA FALLON Measurements Intervals [place] Rate: 83 P: 23 MA: 182 QRS: -41 QRSD: 144 T: 24 QT: 422 QTc: 462 Interpretive Statements 1100 Sinus rhythm 1570 with occasional ventricular premature complexes 2450 Right bundle branch block 7200 Abnormal left axis deviation 9150 abnormal ECG Compared to ECG 12/01/2024 03:40:18 No significant changes Electronically Signed On 12-07-2024 8:07:24 EST by MONICA FALLON
--- NOTE | 2024-12-05 12:56 | CT_ITS ---
The [address] [address] Patient Name: DAVID DUGAN MRN: [id number] date: 1940 Sex: F Assigned Patient Location: ER Current Patient Location: ER Accession/Order Number: [id number] Exam Date: 12/05/2024 13:33 Report Date: 12/05/2024 14:13 At the request of: JC BEDOLLA Procedure: CT cervical spine wo con EXAM: CT cervical spine wo con HISTORY: neck pain, fall COMPARISON: CT cervical spine 12/01/2024. TECHNIQUE: Axial noncontrast CT imaging of the cervical spine was performed with coronal and sagittal reformats. This CT exam was performed using one or more of the following dose reduction techniques: Automated exposure control, adjustment of the MA and/or kV according to patient size, or use of iterative reconstruction technique. FINDINGS: Alignment: Stable reversal of normal cervical lordosis with trace anterolisthesis of C3 on C4. Vertebrae: Vertebral body heights are maintained. No fracture. Craniocervical junction: No focal abnormality. 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 Multilevel facet and uncovertebral arthropathy is redemonstrated, stable from prior. Posterior decompressive changes redemonstrated at the 4 through C6. Visualized portion of the upper lungs are clear. CT/CT cervical spine wo con IMPRESSION: No acute fracture or malalignment of the cervical spine. No substantial change in appearance of the cervical spine from 12/01/2024. Electronically authenticated by: HUBERT PALM Date: 12/05/2024 14:13
--- NOTE | 2024-12-05 12:56 | CT_ITS ---
[address] [address] Patient Name: DAVID DUGAN MRN: [id number] date: 1940 Sex: F Assigned Patient Location: ER Current Patient Location: ED.MAIN Accession/Order Number: [id number] Exam Date: 12/05/2024 13:33 Report Date: 12/05/2024 13:56 At the request of: JC BEDOLLA Procedure: CT stroke head/brain wo con NONCONTRAST HEAD CT COMPARISON: Head CT, 4 days ago. CLINICAL HISTORY: Weakness, fall. TECHNIQUE: Routine noncontrast images of the brain obtained. CT examination of the head without IV contrast. Dose reduction techniques were achieved by using: automated exposure control and/or adjustment of mA and /or kV according to patient size and/or use of iterative reconstruction technique. FINDINGS: Right maxillary sinus remains opacified. Mastoid air cells are clear. . Intraorbital contents are unremarkable. No acute bony abnormality. Intracranially, there is no evidence of hemorrhage, mass effect, or midline shift. Brain atrophy, unchanged. Dense carotid vascular calcifications.. CT/CT stroke head/brain wo con IMPRESSION: No acute intracranial hemorrhage. Brain atrophy redemonstrated. Electronically authenticated by: ELVIRA TROTTER Date: 12/05/2024 13:56
--- NOTE | 2024-12-05 12:59 | XR_ITS ---
The [address] [address] Patient Name: DAVID DUGAN MRN: [id number] date: 1940 Sex: F Assigned Patient Location: ER Current Patient Location: ER Accession/Order Number: [id number] Exam Date: 12/05/2024 13:33 Report Date: 12/05/2024 14:09 At the request of: JC BEDOLLA Procedure: XR chest 1V EXAMINATION: XR chest 1V HISTORY: weak, altered mentation COMPARISON: No relevant comparison available. TECHNIQUE: ap port FINDINGS: LUNGS: No significant pulmonary parenchymal abnormalities. VASCULATURE: No increased pulmonary vasculature. PLEURA: No pneumothorax, effusion, or pleural thickening. CARDIAC: No cardiomegaly or cardiac silhouette abnormality. MEDIASTINUM: No visible mass or adenopathy. BONES: No fracture or visible bone lesion. OTHER: Negative. XR/XR chest 1V IMPRESSION: No acute disease. Electronically authenticated by: KAREY BARRERA Date: 12/05/2024 14:09
--- NOTE | 2024-12-05 12:59 | ED_ITS ---
HPI - Altered Mental Status General Chief Complaint: Altered Mental Status Stated Complaint: AMS Time Seen by Provider: 12/05/24 12:18 Source: caregiver and other Source comment: per ems pt has increased altered mental status today, she is currently at the [facility] and being treated for UTI Mode of arrival: ambulance History of Present Illness HPI narrative: Pt brought to us from [facility] by EMS after [facility] staff reported hypotension and confusion. He is present and gives the history as patient is unable. Up until Nov 19, the patient was able to use her walker to ambulate, interact normally and perform a lot of her ADLs with minor assistance or no assistance, depending on the activity. She was evaluated in the ED on 11/20/24 for urinary symptoms and some confusion, was found to have UTI and was given IV Rocephin and started on keflex to take at home at discharge. Instead of getting better, she deteriorated and her confusion worsened. She had a fall. She came to the ED 11/24/24 and was admitted for RENÉ and presumed to be dehydrated with continued effect from UTI. She was not able to be discharged home and was sent to the [facility] for rehab , according to the . She was discharged from the hospital on November 28. On the evening of November 30, she apparently sustained a fall at the [facility]. She was sent to the emergency department complaining that her neck and shoulders felt strange . CT scanning of the head and cervical spine as well as x-rays of the chest did not reveal any worrisome abnormalities. She was more awake after her time the emergency department was discharged back to the [facility]. Of note, her creatinine, which had been elevated at 3.1 during her hospitalization on November 24, had elevated to 2.6 on this ED visit December 01. At this time, she is not able to give adequate history of present illness or review of systems although she does do her best to answer questions when asked. She struggles to follow some commands Related Data Home Medications ?Medication ?Instructions ?Recorded ?Confirmed aspirin 81 mg tablet,delayed 81 mg PO DAILY 04/26/23 12/05/24 release atorvastatin 80 mg tablet 80 mg PO DAILY 04/26/23 12/05/24 baclofen 10 mg tablet 10 mg PO .QHS 04/26/23 12/05/24 insulin lispro 100 unit/mL 6 unit subcut BIDWM 04/26/23 12/05/24 subcutaneous pen theophylline 400 mg 400 mg PO .QHS 04/26/23 12/05/24 tablet,extended release 24 hr allopurinol 100 mg tablet 100 mg PO BID 11/24/24 12/05/24 carvedilol 6.25 mg tablet 6.25 mg PO BID 11/24/24 12/05/24 famotidine 20 mg tablet 20 mg PO BID 11/24/24 12/05/24 fluticasone furoate 200 1 inh inhalation Q24H 11/24/24 12/05/24 mcg-vilanterol 25 mcg/dose inhalation powder (Breo Ellipta) furosemide 40 mg tablet 80 mg PO BID 11/24/24 12/05/24 insulin glargine 100 unit/mL (3 46 unit subcut .qhs 11/24/24 12/05/24 mL) subcutaneous pen (Lantus Solostar U-100 Insulin) levocetirizine 5 mg tablet 5 mg PO .QHS 11/24/24 12/05/24 montelukast 10 mg tablet 10 mg PO .QHS 11/24/24 12/05/24 pregabalin 75 mg capsule (Lyrica) 75 mg PO DAILY 11/24/24 12/05/24 lisinopril 40 mg tablet 40 mg PO .QHS 12/05/24 12/05/24 tramadol 50 mg tablet 50 mg PO Q6H PRN pain 12/05/24 12/05/24 Allergies Allergy/AdvReac Type Severity Reaction Status Date / Time adhesive tape Allergy Unknown rash Verified 12/05/24 12:25 povidone-iodine (From Allergy Unknown Rash Verified 12/05/24 12:25 Betadine) red dye Allergy Unknown Rash Verified 12/05/24 12:25 Sulfa (Sulfonamide Allergy Unknown Rash Verified 12/05/24 12:25 Antibiotics) tetracycline Allergy Unknown Rash Verified 12/05/24 12:25 [facility] Medical History (Updated 12/05/24 @ 19:38 by Shaikh Francisco MD) HLD (hyperlipidemia) ?E78.5 - Hyperlipidemia, unspecified (ICD-10) CKD stage 3b, GFR 30-44 ml/min ?N18.32 - Chronic kidney disease, stage 3b (ICD-10) Constipation due to opioid therapy ?K59.03 - Drug induced constipation (ICD-10) ?T40.2X5A - Adverse effect of other opioids, initial encounter (ICD-10) Chronic use of opiate drug for therapeutic purpose ?Z79.891 - [employer] (current) use of opiate analgesic (ICD-10) Lumbar stenosis with neurogenic claudication ?M48.062 - Spinal stenosis, lumbar region with neurogenic claudication (ICD- 10) Diabetes ?E11.9 - Type 2 diabetes mellitus without complications (ICD-10) COPD (chronic obstructive pulmonary disease) ?J44.9 - Chronic obstructive pulmonary disease, unspecified (ICD-10) HTN (hypertension) ?I10 - Essential (primary) hypertension (ICD-10) Chronic prescription opiate use ?Z79.891 - [employer] (current) use of opiate analgesic (ICD-10) Lumbar radiculopathy, chronic ?M54.16 - Radiculopathy, lumbar region (ICD-10) Complication of electrolyte disorder ?E87.8 - Other disorders of electrolyte and fluid balance, not elsewhere cl assified (ICD-10) Concussion ?S06.0XAA - Concussion with loss of consciousness status unknown, initial encounter (ICD-10) Bilateral knee pain ?M25.561 - Pain in right knee (ICD-10) ?M25.562 - Pain in left knee (ICD-10) Muscle spasm ?M62.838 - Other muscle spasm (ICD-10) Lumbar spondylosis ?M47.816 - Spondylosis without myelopathy or radiculopathy, lumbar region (ICD-10) Knee osteoarthritis ?M17.9 - Osteoarthritis of knee, unspecified (ICD-10) Chronic kidney disease ?N18.9 - Chronic kidney disease, unspecified (ICD-10) Acute neck pain ?M54.2 - Cervicalgia (ICD-10) Head injury due to trauma ?S09.90XA - Unspecified injury of head, initial encounter (ICD-10) Urinary tract infection ?N39.0 - Urinary tract infection, site not specified (ICD-10) GERD without esophagitis ?K21.9 - Gastro-esophageal reflux disease without esophagitis (ICD-10) Gout due to renal impairment ?M10.30 - Gout due to renal impairment, unspecified site (ICD-10) Osteoarthritis ?M19.90 - Unspecified osteoarthritis, unspecified site (ICD-10) Anemia ?D64.9 - Anemia, unspecified (ICD-10) Carpal tunnel syndrome ?G56.00 - Carpal tunnel syndrome, unspecified upper limb (ICD-10) Acid reflux ?K21.9 - Gastro-esophageal reflux disease without esophagitis (ICD-10) Cirrhosis of liver ?K74.60 - Unspecified cirrhosis of liver (ICD-10) Kidney stone ?N20.0 - Calculus of kidney (ICD-10) Kidney failure ?N19 - Unspecified kidney failure (ICD-10) Asthma ?J45.909 - Unspecified asthma, uncomplicated (ICD-10) High cholesterol ?E78.00 - Pure hypercholesterolemia, unspecified (ICD-10) Surgical History History of appendectomy ?Z90.49 - Acquired absence of other specified parts of digestive tract (ICD- 10) History of hysterectomy ?Z90.710 - Acquired absence of both cervix and uterus (ICD-10) History of neck surgery ?Z98.890 - Other specified postprocedural states (ICD-10) Hx of cholecystectomy ?Z90.49 - Acquired absence of other specified parts of digestive tract (ICD- 10) History of lumbar laminectomy ?Z98.890 - Other specified postprocedural states (ICD-10) History of cardiac cath ?Z98.890 - Other specified postprocedural states (ICD-10) Family History Father Family history of CHF (congestive heart failure) Family history of COPD (chronic obstructive pulmonary disease) Family history of cancer Family history of diabetes mellitus Family history of hypertension Mother Family history of diabetes mellitus Family history of hypertension Family history of myocardial infarction Sister Family history of myocardial infarction Social History Within the past year, how often did you have a drink containing alcohol: never Score interpretation: A score less than 3 is consistent with normal alcohol consumption. Smoking status: Never smoker Non-prescribed substance use: denies use Previous occupational history: retired Highest level of school completed/degree received: Associate degree: occupational, technical, vocational program Are you now , , , , never or living with a partner: Little interest or pleasure in doing things: not at all Feeling down, depressed, or hopeless: not at all Do you think of yourself as: straight/heterosexual Gender Identity: female Exam Narrative Exam Narrative: Nurses notes and vital signs reviewed and patient is not hypoxic. afebrile General: Acutely altered but in no apparent distress. Skin: Warm, dry, no pallor noted. No rash. Head: Normocephalic, atraumatic. Neck: Supple, no lymphadenopathy. She is diffusely tender throughout the posterior neck with increased pain when she moves the neck. Eye: She has a nonreactive, teardrop shaped pupil -prior history of cataract surgery . The remaining pupil is equal, round and EOMI. No scleral icterus. Ears, Nose, Mouth, and Throat: Oral mucosa is very dry with some crusting on the lips Cardiovascular: Regular Rate and Rhythm without murmur, gallop or rub. Respiratory: No accessory muscle use or respiratory distress. Lungs are clear to auscultation, no wheezing, rales or rhonchi Chest Wall: no tenderness, crepitus or subcutaneous emphysema. No external sign of injury Back: No midline thoracic or lumbar vertebral tenderness. No CVA tenderness Musculoskeletal: Markedly decreased ROM in all extremities. No calf or popliteal tenderness, no lower extremity edema/swelling, no lower extremity skin change indicating cellulitis. GI: Abdomen is soft, non-distended. Normal bowel sounds. No masses appreciated. No tenderness to palpation. No rebound, guarding, or rigidity noted. Neurological: A&O x4. Patient is unable to sit up unassisted. She is unable to reach up and grasp of both handrails on her own. She has profound weakness in all 4 extremities. She is unable to lift either leg off of bed. No cranial nerve dysfunction observed but the exam is limited secondary to her difficulty following commands. Unable to assess truncal ataxia as she cannot sit up unassisted or remain upright without being held. Limited ability to move her upper extremities and almost no ability to move her lower extremities. Sensation intact to fine touch but she struggles to understand evaluation regarding proprioception. Psychiatric: Cooperative but minimally interactive. Constitutional Vital Signs, click to edit/add: Last Vital Signs Temp 98.1 F 12/06/24 15:43 Pulse 66 12/06/24 17:59 Resp 18 12/06/24 15:43 BP 133/55 12/06/24 15:43 Pulse Ox 93 L 12/06/24 15:43 O2 Del Method Room Air 12/06/24 15:43 O2 Flow Rate 2 12/05/24 12:19 Course Vital Signs Vital signs: Vital Signs Temperature 98.3 F 12/05/24 12:19 Pulse Rate 80 12/05/24 12:19 Respiratory Rate 18 12/05/24 12:19 Blood Pressure 170/81 H 12/05/24 12:19 Pulse Oximetry 99 12/05/24 12:19 Oxygen Delivery Method Nasal Cannula 12/05/24 12:19 Oxygen Delivery Flow Rate 2 12/05/24 12:19 Temperature 98.1 F 12/06/24 15:43 Pulse Rate 66 12/06/24 17:59 Respiratory Rate 18 12/06/24 15:43 Blood Pressure 133/55 12/06/24 15:43 Pulse Oximetry 93 L 12/06/24 15:43 Oxygen Delivery Method Room Air 12/06/24 15:43 Oxygen Delivery Flow Rate 2 12/05/24 12:19 MDM - Altered Mental Status MDM Narrative Medical decision making narrative: Patient presents with worsening mental status, plus profound, diffuse weakness, including an inability to ambulate with her walker, as she normally would. On review of her prior medical record, I noted that her creatinine elevated from 1.3 on 11/20 to 2.6 on 12/01. I am concerned that her symptoms are related to worsening renal function. Additionally, although she just had similar imaging on 12/01, I would like to recheck her brain and cervical spine via CT scanning to rule out any ICH, stroke, cervical fracture or other pathology that might be contributing to her symptoms. Patient was placed on hand singer and EKG obtained. Blood drawn and sent for evaluation. Straight cath for urine and a sample was sent. BUN and creatinine were markedly elevated at 101, 5.31, respectively. The remaining portion of her profile I will review normal electrolytes including potassium, normal anion gap, negative lactic 8, negative alk phos but elevated AST and ALT. Ammonia negative. TSH was normal. Troponin was elevated at 68.8 but I suspect this is secondary to her worsened renal function. CBC was normal. Urine sample was milky white and thick, possible contaminants on this straight cath sample and obvious concern for infection. This patient will need to be transferred to a facility that can manage her kidney failure. We do not have the ability to dialyze the patient at this facility. Additionally, the patient's director of nursing, Dr. Conley, works out of [facility] in [place]. I called and spoke with the and after explaining the patient's results and diagnosis, he was agreeable to have the patient transferred to [facility]. Call placed to speak with the hospitalist at [facility] to dscuss transfer to their facility. Call placed to Dr Conley to discuss this patient's renal failure and requested transfer to [facility]. I spoke with his partner, Dr Feldman. After discussing the patient's case and lack of available beds at [facility], he recommended that we keep the patient at [facility], give her IVF hydration with goodman catheter to monitor I/Os and recheck her renal function in the morning. I talked with Dr Singh about this plan and he agreed to admit the patient to his service, medsurg - once we recheck the chemistries. I ordered a goodman catheter to be placed and ordered her to receive some dilaudid for pain, zofran to prevent vomiting. Repeat BMP revealed a BUN of 99 with a creatinine of 4.76, showing that the patient is trending in the right direction. She will be admitted upstairs once a bed is available. I called and left a message with the to call me back so that I could update him on the patient's status of being admitted to [facility] rather than transfer to [facility]. Medical Records Attestation: I reviewed the patient's medical records. Medical records narrative: My review of the patient's medical records is summarized in the HPI Lab Data Attestation: I reviewed the patient's lab results. Labs: Lab Results 12/05/24 12/05/24 12/05/24 Range/Units 12:20 12:44 13:09 WBC 7.7 (4.0-11.0) 10^3/uL RBC 3.85 L (4.20-5.40) 10^6/uL Hgb 11.5 L (12.0-16.0) g/dL Hct 36.1 (36.0-48.0) % MCV 93.8 (81.0-99.0) fL MCH 29.9 (26.7-34.0) pg MCHC 31.9 (29.9-35.2) g/dL RDW 15.0 (11.0-15.0) % Plt Count 209 (150-450) 10^3/uL MPV 11.9 (9.5-13.5) fL Neut % (Auto) 66.3 (43.0-75.0) % Lymph % (Auto) 19.1 L (20.5-60.0) % [place] % (Auto) 13.8 H (1.7-12.0) % Eos % (Auto) 0.1 L (0.9-7.0) % Baso % (Auto) 0.3 (0.2-2.0) % Neut # (Auto) 5.1 (1.4-6.5) 10^3/uL Lymph # (Auto) 1.5 (1.2-3.8) 10^3/uL [place] # (Auto) 1.1 H (0.3-0.8) 10^3/uL Eos # (Auto) 0.0 (0.0-0.7) 10^3/uL Baso # (Auto) 0.0 (0.0-0.1) 10^3/uL Abs Immat Gran (auto) 0.03 (0.00-0.03) 10^3/uL Imm/Tot Granulo (auto) 0.4 (0.0-0.5) % Sodium 139 (136-145) mmol/L Potassium 4.2 (3.5-5.1) mmol/L Chloride 101 (98-107) mmol/L Carbon Dioxide 27.8 (21.0-32.0) mmol/L Anion Gap 14.4 BUN 101.0 H* (7.0-18.0) mg/dL Creatinine 5.31 H* (0.55-1.02) mg/dL Est GFR ( Amer) 9 L (>=60 mL/min/1.73m^2) Est GFR (Non-Af Amer) 8 L (>=60 mL/min/1.73m^2) BUN/Creatinine Ratio 19.0 Glucose 190 H (74-106) mg/dL Lactate 1.6 (0.4-2.0) mmol/L Calcium 8.2 L (8.5-10.1) mg/dL Total Bilirubin 0.4 (0.2-1.0) mg/dL AST 161 H (15-37) U/L ALT 143 H (14-59) U/L Alkaline Phosphatase 104 (46-116) U/L Ammonia (11-32) umol/L Troponin I High Sens 68.8 H* (4.0-51.3) pg/mL Total Protein 6.4 (6.4-8.2) g/dL Albumin 2.6 L (3.4-5.0) g/dL Globulin 3.8 g/dL Albumin/Globulin Ratio 0.7 TSH 3.657 (0.358-3.740) uIU/mL Urine Color Brown A (YELLOW) Urine Clarity Turbid A (CLEAR) Urine pH 5.5 (5.0-9.0) Ur Specific [place] >=1.030 A (1.005-1.025) Urine Protein 100 A (NEG/TRACE) mg/dL Urine Glucose (UA) Negative (NEGATIVE) mg/dL Urine Ketones Trace A (NEGATIVE) mg/dL Urine Occult Blood Large A (NEGATIVE) Urine Nitrite Negative (NEGATIVE) Urine Bilirubin Negative (NEGATIVE) Urine Urobilinogen 0.2 (0.2-1.0) EU/dL Ur Leukocyte Esterase Moderate A (NEGATIVE) Urine RBC 2-5 A (0-2) #/HPF Urine WBC >100 A (NONE SEEN) #/HPF Ur Squamous Epith Cells Few A (NONE/RARE) #/LPF Urine Crystals None seen (None Seen) #/HPF Urine Bacteria Small A (NONE SEEN) #/HPF Urine Casts None seen (NONE SEEN) #/LPF Urine Mucus None seen (NONE SEEN) Ur Culture Indicated? Yes POC Glucose 173 H (74-106) mg/dL 12/05/24 12/05/24 Range/Units 13:20 15:12 WBC (4.0-11.0) 10^3/uL RBC (4.20-5.40) 10^6/uL Hgb (12.0-16.0) g/dL Hct (36.0-48.0) % MCV (81.0-99.0) fL MCH (26.7-34.0) pg MCHC (29.9-35.2) g/dL RDW (11.0-15.0) % Plt Count (150-450) 10^3/uL MPV (9.5-13.5) fL Neut % (Auto) (43.0-75.0) % Lymph % (Auto) (20.5-60.0) % [place] % (Auto) (1.7-12.0) % Eos % (Auto) (0.9-7.0) % Baso % (Auto) (0.2-2.0) % Neut # (Auto) (1.4-6.5) 10^3/uL Lymph # (Auto) (1.2-3.8) 10^3/uL [place] # (Auto) (0.3-0.8) 10^3/uL Eos # (Auto) (0.0-0.7) 10^3/uL Baso # (Auto) (0.0-0.1) 10^3/uL Abs Immat Gran (auto) (0.00-0.03) 10^3/uL Imm/Tot Granulo (auto) (0.0-0.5) % Sodium 140 (136-145) mmol/L Potassium 4.1 (3.5-5.1) mmol/L Chloride 104 (98-107) mmol/L Carbon Dioxide 26.6 (21.0-32.0) mmol/L Anion Gap 13.5 BUN 99.0 H* (7.0-18.0) mg/dL Creatinine 4.76 H (0.55-1.02) mg/dL Est GFR ( Amer) 11 L (>=60 mL/min/1.73m^2) Est GFR (Non-Af Amer) 9 L (>=60 mL/min/1.73m^2) BUN/Creatinine Ratio 20.8 Glucose 168 H (74-106) mg/dL Lactate (0.4-2.0) mmol/L Calcium 7.9 L (8.5-10.1) mg/dL Total Bilirubin (0.2-1.0) mg/dL AST (15-37) U/L ALT (14-59) U/L Alkaline Phosphatase (46-116) U/L Ammonia <10 L (11-32) umol/L Troponin I High Sens (4.0-51.3) pg/mL Total Protein (6.4-8.2) g/dL Albumin (3.4-5.0) g/dL Globulin g/dL Albumin/Globulin Ratio TSH (0.358-3.740) uIU/mL Urine Color (YELLOW) Urine Clarity (CLEAR) Urine pH (5.0-9.0) Ur Specific [place] (1.005-1.025) Urine Protein (NEG/TRACE) mg/dL Urine Glucose (UA) (NEGATIVE) mg/dL Urine Ketones (NEGATIVE) mg/dL Urine Occult Blood (NEGATIVE) Urine Nitrite (NEGATIVE) Urine Bilirubin (NEGATIVE) Urine Urobilinogen (0.2-1.0) EU/dL Ur Leukocyte Esterase (NEGATIVE) Urine RBC (0-2) #/HPF Urine WBC (NONE SEEN) #/HPF Ur Squamous Epith Cells (NONE/RARE) #/LPF Urine Crystals (None Seen) #/HPF Urine Bacteria (NONE SEEN) #/HPF Urine Casts (NONE SEEN) #/LPF Urine Mucus (NONE SEEN) Ur Culture Indicated? POC Glucose (74-106) mg/dL Imaging Data ct head, ctcspine, cxr: Attestation: I have reviewed the pertinent imaging results. Radiologist's impression: ITS Impressions Brain CT 12/05/24 12:56 IMPRESSION: No acute intracranial hemorrhage. Brain atrophy redemonstrated. Electronically authenticated by: ELVIRA TROTTER Date: 12/05/2024 13:[address] 12/05/24 12:56 IMPRESSION: No acute fracture or malalignment of the cervical spine. No substantial change in appearance of the cervical spine from 12/01/2024. Electronically authenticated by: HUBERT PALM Date: 12/05/2024 14:13 Chest X-Ray 12/05/24 12:59 IMPRESSION: No acute disease. Electronically authenticated by: KAREY BARRERA Date: 12/05/2024 14:09 ECG Data Attestation: I personally reviewed and interpreted this ECG as follows: Interpretation: EKG interpretation: Emergency Department physician interpretation. Normal sinus rhythm at 83bpm. Right bundle branch block. Left axis deviation. A single PVC is noted. T wave inversion is noted in septal leads but no ST segment elevation or depression. Discharge Plan Discharge Chief Complaint: Altered Mental Status Clinical Impression: Acute kidney failure, Altered mental status, Generalized weakness Patient Disposition: Admitted As Inpatient Time of Disposition Decision: 13:40 Discharge Date/Time: 12/05/24 16:41
[2024-12-05 13:14] LABS: Basophils Percent Auto 0.3 % (0.2-2.0); Eosinophils Percent Auto 0.1 % (0.9-7.0); Hematocrit 36.1 % (36.0-48.0); Hemoglobin 11.5 g/dL (12.0-16.0); Immature Granulocytes Abs Auto 0.03 10^3/uL (0.00-0.03); Immature Granulocytes Pct Auto 0.4 % (0.0-0.5); Lymphocytes Absolute Auto 1.5 10^3/uL (1.2-3.8); Lymphocytes Percent Auto 19.1 % (20.5-60.0); Mean Corpuscular HGB Conc 31.9 g/dL (29.9-35.2); Mean Corpuscular Hemoglobin 29.9 pg (26.7-34.0); Mean Corpuscular Volume 93.8 fL (81.0-99.0); Mean Platelet Volume 11.9 fL (9.5-13.5); Monocytes Absolute Auto 1.1 10^3/uL (0.3-0.8); Monocytes Percent Auto 13.8 % (1.7-12.0); Neutrophils Absolute Auto 5.1 10^3/uL (1.4-6.5); Neutrophils Percent Auto 66.3 % (43.0-75.0); Platelet Count 209 10^3/uL (150-450); Red Blood Count 3.85 10^6/uL (4.20-5.40); White Blood Count 7.7 10^3/uL (4.0-11.0)
[2024-12-05] MEDS: 0.9 % SODIUM CHLORIDE 1,000 ML 1000 ML IV ×2 (13:28→14:40)
[2024-12-05 13:30] LABS: Lactate/Lactic Acid 1.6 mmol/L (0.4-2.0)
[2024-12-05 13:37] LABS: Alanine Aminotransferase 143 U/L (14-59); Albumin Globulin Ratio 0.7; Albumin Level 2.6 g/dL (3.4-5.0); Alkaline Phosphatase 104 U/L (46-116); Anion Gap 14.4; Aspartate Amino Transferase 161 U/L (15-37); Bilirubin Total 0.4 mg/dL (0.2-1.0); Calcium 8.2 mg/dL (8.5-10.1); Carbon Dioxide 27.8 mmol/L (21.0-32.0); Chloride 101 mmol/L (98-107); Estimated GFR (African America 9 (>=60 mL/min/1.73m^2); Estimated GFR (Non-African Ame 8 (>=60 mL/min/1.73m^2); Globulin 3.8 g/dL; Glucose 190 mg/dL (74-106); Potassium 4.2 mmol/L (3.5-5.1); Sodium 139 mmol/L (136-145); Thyroid Stimulating Hormone 3.657 uIU/mL (0.358-3.740); Total Protein 6.4 g/dL (6.4-8.2)
[2024-12-05 13:40] LABS: Troponin I High Sensitivity 68.8 pg/mL (4.0-51.3)
[2024-12-05 13:45] LABS: Bilirubin Urine NEGATIVE (NEGATIVE); Blood Urine LARGE (NEGATIVE); Clarity Urine TURBID (CLEAR); Glucose Urine UA NEGATIVE (NEGATIVE); Ketones Urine TRACE mg/dL (NEGATIVE); Leukocyte Esterase Urine MODERATE (NEGATIVE); Nitrite Urine NEGATIVE (NEGATIVE); Protein Urine 100 mg/dL (NEG/TRACE); Specific Gravity Urine >=1.030 (1.005-1.025); Urobilinogen Urine 0.2 EU/dL (0.2-1.0); pH Urine 5.5 (5.0-9.0)
[2024-12-05 13:50] LABS: Ammonia <10 umol/L (11-32)
[2024-12-05 13:57] LABS: WBC Urine >100 #/HPF (NONE SEEN)
[2024-12-05 13:58] LABS: Bacteria Urine SMALL #/HPF (NONE SEEN); Cast Seen? NONE SEEN #/LPF (NONE SEEN); Crystals Seen? None Seen #/HPF (None Seen); Mucus Urine NONE SEEN (NONE SEEN); Squamous Epithelial Cell Urine FEW #/LPF (NONE/RARE); Urine Culture Indicated YES
[2024-12-05 13:59] LABS: Color Urine BROWN (YELLOW)
[2024-12-05] MEDS: HYDROMORPHONE HCL 1 MG/ML CARTRIDGE 0.5 MG IVP (15:17)
[2024-12-05] MEDS: ONDANSETRON PF 4 MG/2 ML VIAL IV (15:18)
[2024-12-05] MEDS: IMIPENEM/CILASTATIN SODIUM 1,000 MG in 0.9 % SODIUM CHLORIDE 100 ML 100 MG IV (15:34)
[2024-12-05 15:39] LABS: Anion Gap 13.5; BUN Creatinine Ratio 20.8; Calcium 7.9 mg/dL (8.5-10.1); Carbon Dioxide 26.6 mmol/L (21.0-32.0); Chloride 104 mmol/L (98-107); Estimated GFR (African America 11 (>=60 mL/min/1.73m^2); Estimated GFR (Non-African Ame 9 (>=60 mL/min/1.73m^2); Glucose 168 mg/dL (74-106); Potassium 4.1 mmol/L (3.5-5.1); Sodium 140 mmol/L (136-145)
--- NOTE | 2024-12-05 16:58 | PM.HP ---
HPI H&P: HPI History of Present Illness Chief complaint: Kidney Failure Confusion UTI Narrative: 84 y o female was brought over to ED for generalized weakness, confusion and low BP. At the time of my evaluation, her had left who provided most of the history noted in ED HPI. I was unable to obtain any meaningful information from the patient as she kept saying help me, I am hurting all over Based on review of chart and ED documentation, it seems like up until Nov 19, the patient was able to use her walker to ambulate, interact normally and perform a lot of her ADLs with little to no assistance or no assistance. She was evaluated in the ED on 11/20/24 for urinary symptoms and some confusion, was found to have UTI and was given IV Rocephin and started on Keflex to take at home at discharge. Instead of getting better, she deteriorated and her confusion worsened and was brought over to ED after a fall on 11/24/24 and was admitted for RENÉ, dehydration from UTI. She discharged to the [facility] for rehab on November 28. She had another ED visit on the for a fall and evaluated in ED and sent home after her work up was unremarkable and patient returned to her baseline in ED. Work up in ED revealed sig dehydration and RENÉ with Cr upto 5.3. Her baseline Cr is 1.8-2.0. She follows Dr Conley for CKD and after consultation with his partner who was admissions advisor for his group- patient admitted for IV hydration, monitoring of her renal function. Patient's UA c/w UTI, will treat her for UTI with IV abx. Given the degree of RENÉ, resulting in metabolic encephalopathy and UTI that has been treated with 2 different abx at least on 2 occasions, she will require inpatient treatment of her current illness and anticipated to stay atleast 2-3 days for close hemodynamic monitoring, monitoring of her UO, serum electrolytes to ensure she is clinically improving. Opioid HPI Opioid Management Most Recent Pain and Opioid Data: Last Pain Scale 0 12/05/24 18:20 12/05/24 Last Pain Intensity 4 11/27/24 11:35 11/27/24 Last Pain Assessment 12/05/24 18:20 Last ORT Total Score 0 12/05/24 17:05 12/05/24 Last ORT Risk Category Low Risk 12/05/24 17:05 12/05/24 Review of Systems ROS Status of ROS unobtainable due to mental status [facility] Medical History (Updated 12/05/24 @ 19:38 by Shaikh Francisco MD) HLD (hyperlipidemia) ?E78.5 - Hyperlipidemia, unspecified (ICD-10) CKD stage 3b, GFR 30-44 ml/min ?N18.32 - Chronic kidney disease, stage 3b (ICD-10) Constipation due to opioid therapy ?K59.03 - Drug induced constipation (ICD-10) ?T40.2X5A - Adverse effect of other opioids, initial encounter (ICD-10) Chronic use of opiate drug for therapeutic purpose ?Z79.891 - termite control representative (current) use of opiate analgesic (ICD-10) Lumbar stenosis with neurogenic claudication ?M48.062 - Spinal stenosis, lumbar region with neurogenic claudication (ICD-10) Diabetes ?E11.9 - Type 2 diabetes mellitus without complications (ICD-10) COPD (chronic obstructive pulmonary disease) ?J44.9 - Chronic obstructive pulmonary disease, unspecified (ICD-10) HTN (hypertension) ?I10 - Essential (primary) hypertension (ICD-10) Chronic prescription opiate use ?Z79.891 - termite control representative (current) use of opiate analgesic (ICD-10) Lumbar radiculopathy, chronic ?M54.16 - Radiculopathy, lumbar region (ICD-10) Complication of electrolyte disorder ?E87.8 - Other disorders of electrolyte and fluid balance, not elsewhere classified (ICD-10) Concussion ?S06.0XAA - Concussion with loss of consciousness status unknown, initial encounter (ICD-10) Bilateral knee pain ?M25.561 - Pain in right knee (ICD-10) ?M25.562 - Pain in left knee (ICD-10) Muscle spasm ?M62.838 - Other muscle spasm (ICD-10) Lumbar spondylosis ?M47.816 - Spondylosis without myelopathy or radiculopathy, lumbar region (ICD-10) Knee osteoarthritis ?M17.9 - Osteoarthritis of knee, unspecified (ICD-10) Chronic kidney disease ?N18.9 - Chronic kidney disease, unspecified (ICD-10) Acute neck pain ?M54.2 - Cervicalgia (ICD-10) Head injury due to trauma ?S09.90XA - Unspecified injury of head, initial encounter (ICD-10) Urinary tract infection ?N39.0 - Urinary tract infection, site not specified (ICD-10) GERD without esophagitis ?K21.9 - Gastro-esophageal reflux disease without esophagitis (ICD-10) Gout due to renal impairment ?M10.30 - Gout due to renal impairment, unspecified site (ICD-10) Osteoarthritis ?M19.90 - Unspecified osteoarthritis, unspecified site (ICD-10) Anemia ?D64.9 - Anemia, unspecified (ICD-10) Carpal tunnel syndrome ?G56.00 - Carpal tunnel syndrome, unspecified upper limb (ICD-10) Acid reflux ?K21.9 - Gastro-esophageal reflux disease without esophagitis (ICD-10) Cirrhosis of liver ?K74.60 - Unspecified cirrhosis of liver (ICD-10) Kidney stone ?N20.0 - Calculus of kidney (ICD-10) Kidney failure ?N19 - Unspecified kidney failure (ICD-10) Asthma ?J45.909 - Unspecified asthma, uncomplicated (ICD-10) High cholesterol ?E78.00 - Pure hypercholesterolemia, unspecified (ICD-10) Surgical History History of appendectomy ?Z90.49 - Acquired absence of other specified parts of digestive tract (ICD-10) History of hysterectomy ?Z90.710 - Acquired absence of both cervix and uterus (ICD-10) History of neck surgery ?Z98.890 - Other specified postprocedural states (ICD-10) Hx of cholecystectomy ?Z90.49 - Acquired absence of other specified parts of digestive tract (ICD-10) History of lumbar laminectomy ?Z98.890 - Other specified postprocedural states (ICD-10) History of cardiac cath ?Z98.890 - Other specified postprocedural states (ICD-10) Family History Father Family history of CHF (congestive heart failure) Family history of COPD (chronic obstructive pulmonary disease) Family history of cancer Family history of diabetes mellitus Family history of hypertension Mother Family history of diabetes mellitus Family history of hypertension Family history of myocardial infarction Sister Family history of myocardial infarction Social History Within the past year, how often did you have a drink containing alcohol: never Score interpretation: A score less than 3 is consistent with normal alcohol consumption. Smoking status: Never smoker Non-prescribed substance use: denies use Previous occupational history: retired Highest level of school completed/degree received: Associate degree: occupational, technical, vocational program Are you now , , , , never or living with a partner: Little interest or pleasure in doing things: not at all Feeling down, depressed, or hopeless: not at all Do you think of yourself as: straight/heterosexual Gender Identity: female Meds Home Medications and Allergies Home Medications ?Medication ?Instructions ?Recorded ?Confirmed ?Type aspirin 81 mg tablet,delayed 81 mg PO DAILY 04/26/23 12/05/24 History release atorvastatin 80 mg tablet 80 mg PO DAILY 04/26/23 12/05/24 History baclofen 10 mg tablet 10 mg PO .QHS 04/26/23 12/05/24 History insulin lispro 100 unit/mL 6 unit subcut BIDWM 04/26/23 12/05/24 History subcutaneous pen theophylline 400 mg 400 mg PO .QHS 04/26/23 12/05/24 History tablet,extended release 24 hr allopurinol 100 mg tablet 100 mg PO BID 11/24/24 12/05/24 History carvedilol 6.25 mg tablet 6.25 mg PO BID 11/24/24 12/05/24 History famotidine 20 mg tablet 20 mg PO BID 11/24/24 12/05/24 History fluticasone furoate 200 1 inh inhalation Q24H 11/24/24 12/05/24 History mcg-vilanterol 25 mcg/dose inhalation powder (Breo Ellipta) furosemide 40 mg tablet 80 mg PO BID 11/24/24 12/05/24 History insulin glargine 100 unit/mL (3 46 unit subcut .qhs 11/24/24 12/05/24 History mL) subcutaneous pen (Lantus Solostar U-100 Insulin) levocetirizine 5 mg tablet 5 mg PO .QHS 11/24/24 12/05/24 History montelukast 10 mg tablet 10 mg PO .QHS 11/24/24 12/05/24 History pregabalin 75 mg capsule (Lyrica) 75 mg PO DAILY 11/24/24 12/05/24 History lisinopril 40 mg tablet 40 mg PO .QHS 12/05/24 12/05/24 History tramadol 50 mg tablet 50 mg PO Q6H PRN pain 12/05/24 12/05/24 History Allergies Allergy/AdvReac Type Severity Reaction Status Date / Time adhesive tape Allergy Unknown rash Verified 12/05/24 12:25 povidone-iodine (From Allergy Unknown Rash Verified 12/05/24 12:25 Betadine) red dye Allergy Unknown Rash Verified 12/05/24 12:25 Sulfa (Sulfonamide Allergy Unknown Rash Verified 12/05/24 12:25 Antibiotics) tetracycline Allergy Unknown Rash Verified 12/05/24 12:25 Exam Constitutional Vital Signs, click to edit/add: Last Vital Signs Temp 98.3 F 12/05/24 12:19 Pulse 80 12/05/24 15:50 Resp 12 12/05/24 15:50 BP 180/68 H 12/05/24 15:31 Pulse Ox 93 L 12/05/24 15:50 O2 Del Method Nasal Cannula 12/05/24 12:19 O2 Flow Rate 2 12/05/24 12:19 General appearance: lethargic, ill appearing and frail appearing Orientation/consciousness: Yes confused Respiratory Common normals: normal respiratory effort, no use of accessory muscles and clear to auscultation bilaterally Auscultation: diminished lung sounds Cardio Common normals: regular rate, regular rhythm, S1 normal heart sound and S2 normal heart sound GI Common normals: Normal to inspection, nondistended, normoactive bowel sounds present, soft to palpation, non-tender and no hepatosplenomegaly Extremity Common normals: normal to inspection and no clubbing, cyanosis or edema Neuro [place] Coma Scale: document GCS findings [place] coma scale eye opening: Spontaneous [place] coma scale verbal response: Confused [place] coma scale motor response: Obey commands [place] coma scale total score: 14 Common normals: moves all extremities Other: Confused, intermittently follows commands Psych Other: Confused, disoriented. Results Labs Labs: Short CBC 12/05/24 Range/Units 12:20 WBC 7.7 (4.0-11.0) 10^3/uL Hgb 11.5 L (12.0-16.0) g/dL Hct 36.1 (36.0-48.0) % Plt Count 209 (150-450) 10^3/uL BMP 12/05/24 12/05/24 12:20 15:12 Sodium 139 140 Potassium 4.2 4.1 Chloride 101 104 Carbon Dioxide 27.8 26.6 BUN 101.0 H* 99.0 H* Creatinine 5.31 H* 4.76 H Glucose 190 H 168 H Calcium 8.2 L 7.9 L Liver Function 12/05/24 Range/Units 12:20 Total Bilirubin 0.4 (0.2-1.0) mg/dL AST 161 H (15-37) U/L ALT 143 H (14-59) U/L Alkaline Phosphatase 104 (46-116) U/L Albumin 2.6 L (3.4-5.0) g/dL Urine 12/05/24 Range/Units 13:09 Urine Color Brown A (YELLOW) Urine Clarity Turbid A (CLEAR) Urine pH 5.5 (5.0-9.0) Ur Specific [place] >=1.030 A (1.005-1.025) Urine Protein 100 A (NEG/TRACE) mg/dL Urine Glucose (UA) Negative (NEGATIVE) mg/dL Assessment and Plan Assessment and Plan (1) Acute metabolic encephalopathy: Assessment and Plan: No acute finding on CTH. Likely due to dehydration, RENÉ and UTI. (2) Generalized weakness: Assessment and Plan: Likely from Dehydration, RENÉ PT/OT eval ordered (3) RENÉ (acute kidney injury): Assessment and Plan: Baseline Cr is1.8-2 Presented with Cr of 5.3 No acute need for HD D/w nephrology - catheter in place. C/w IV hydration. Monitor I/O, daily weights. Monitor serum Cr and electrolytes closely. US Kidney ordered to r/o obstructive uropathy. (4) Urinary tract infection: Assessment and Plan: Started on IV rocephin. F/u urine cx. Qualifiers: Hematuria presence: without hematuria Urinary tract infection type: acute cystitis Qualified Code(s): N30.00 - Acute cystitis without hematuria (5) CKD stage 3b, GFR 30-44 ml/min: Assessment and Plan: Baseline Cr is 1.8-2 Presented with RENÉ (6) Diabetes: Assessment and Plan: Decrease Lantus to 20 units qhs due to decreased renal clearance of insulin. C/w SSI Qualifiers: Diabetes mellitus type: type 2 Diabetes mellitus intermission coordinator insulin use: with intermission coordinator use Diabetes mellitus complication status: with kidney complications Diabetes mellitus complication detail: with chronic kidney disease Chronic kidney disease stage: stage 3 (moderate) Chronic kidney disease stage 3 subtype: stage 3b (GFR 30-44) Qualified Code(s): E11.22 - Type 2 diabetes mellitus with diabetic chronic kidney disease; N18.32 - Chronic kidney disease, stage 3b; Z79.4 - termite control representative (current) use of insulin (7) COPD (chronic obstructive pulmonary disease): Assessment and Plan: Stable. No bronchospasm noted. C/w home medications. Qualifiers: COPD type: unspecified COPD Qualified Code(s): J44.9 - Chronic obstructive pulmonary disease, unspecified (8) HTN (hypertension): Assessment and Plan: Hold lisinopril, lasix. C/w IV hydration. If BP is poorly controlled, will add CCB and use IV Hydralazine as needed Qualifiers: Hypertension type: secondary to endocrine disorders Qualified Code(s): I15.2 - Hypertension secondary to endocrine disorders (9) HLD (hyperlipidemia): Assessment and Plan: c/w Lipitor. Urinary Catheter Management Urinary Catheter Management 2-way Urethral: Cath placed during this visit: yes Urethral indwelling: Yes Reason for continuing: measure accurate output Insertion date: 12/05/24 Insertion time: 15:33
[2024-12-05 17:43] LABS: Glucometer 143 mg/dL (74-106)
[2024-12-05] MEDS: LACTATED RINGER'S SOLUTION 1,000 ML 125 ML IV (17:47)
[2024-12-05] MEDS: CEFTRIAXONE 1,000 MG in 0.9 % SODIUM CHLORIDE 50 ML 100 MG IV (17:47)
[2024-12-05] MEDS: HEPARIN SODIUM (PORCINE) 5,000 UNIT/ML VIAL 5000 UNIT SUBQ (17:48)
--- NOTE | 2024-12-05 19:39 | US_ITS ---
[address] [address] Patient Name: DAVID DUGAN MRN: [id number] date: 1940 Sex: F Assigned Patient Location: [place] Current Patient Location: [place] Accession/Order Number: [id number] Exam Date: 12/05/2024 20:35 Report Date: 12/06/2024 08:18 At the request of: SHAIKH KEELY Procedure: US renal BI EXAM: Renal and bladder ultrasound CLINICAL INDICATION: RENÉ. COMPARISON: Ultrasound dated 11/24/2024 TECHNIQUE: Grayscale and color Doppler imaging was obtained of both kidneys. FINDINGS: RIGHT: No hydronephrosis. Mild parenchymal atrophy. The kidney measures 11.6 cm length. No sonographically evident renal calculi. No abnormal renal masses identified. LEFT: No hydronephrosis. Mild parenchymal atrophy. The kidney measures 10.4 cm length. No sonographically evident renal calculi. No abnormal renal masses identified. Bladder: Mcdonough catheter in the bladder. No obvious sonographic abnormality. US/US renal BI IMPRESSION: No hydronephrosis. Electronically authenticated by: FREDERICK SUMNER Date: 12/06/2024 08:18
[2024-12-05 20:55] LABS: Glucometer 169 mg/dL (74-106)
[2024-12-05] MEDS: ALBUTEROL SULFATE 2.5 MG/3 ML VIAL NEB CNTNEBULIZ (23:08)
[2024-12-05] MEDS: BUDESONIDE 0.5 MG/2 ML AMPULE NEB IH (23:08)
[2024-12-06] VITALS (20 sets, daily range): BP systolic 112–162; BP diastolic 55–70; PULSE 57–94; TEMP 36.5–37; O2SAT 90–96
[2024-12-06] MEDS: HEPARIN SODIUM (PORCINE) 5,000 UNIT/ML VIAL 5000 UNIT SUBQ ×3 (02:01→17:41)
[2024-12-06] MEDS: LACTATED RINGER'S SOLUTION 1,000 ML 125 ML IV ×3 (02:46→19:17)
[2024-12-06] MEDS: ALBUTEROL SULFATE 2.5 MG/3 ML VIAL NEB CNTNEBULIZ ×3 (04:24→22:51)
--- NOTE | 2024-12-06 06:04 | PC.NURSE ---
dark yellow greenish cloudy urine with sediment
[2024-12-06 06:06] LABS: Basophils Percent Auto 0.2 % (0.2-2.0); Eosinophils Absolute Auto 0.2 10^3/uL (0.0-0.7); Eosinophils Percent Auto 3.6 % (0.9-7.0); Hematocrit 33.5 % (36.0-48.0); Hemoglobin 10.7 g/dL (12.0-16.0); Immature Granulocytes Abs Auto 0.03 10^3/uL (0.00-0.03); Immature Granulocytes Pct Auto 0.7 % (0.0-0.5); Lymphocytes Absolute Auto 0.7 10^3/uL (1.2-3.8); Lymphocytes Percent Auto 15.9 % (20.5-60.0); Mean Corpuscular HGB Conc 31.9 g/dL (29.9-35.2); Mean Corpuscular Hemoglobin 29.7 pg (26.7-34.0); Mean Corpuscular Volume 93.1 fL (81.0-99.0); Mean Platelet Volume 11.7 fL (9.5-13.5); Monocytes Absolute Auto 0.5 10^3/uL (0.3-0.8); Monocytes Percent Auto 12.3 % (1.7-12.0); Neutrophils Percent Auto 67.3 % (43.0-75.0); Platelet Count 156 10^3/uL (150-450); Red Cell Distribution Width 14.8 % (11.0-15.0); White Blood Count 4.4 10^3/uL (4.0-11.0)
[2024-12-06 06:23] LABS: Alanine Aminotransferase 90 U/L (14-59); Albumin Globulin Ratio 0.6; Alkaline Phosphatase 82 U/L (46-116); Anion Gap 13.4; Aspartate Amino Transferase 102 U/L (15-37); BUN Creatinine Ratio 26.6; Bilirubin Total 0.3 mg/dL (0.2-1.0); Calcium 8.1 mg/dL (8.5-10.1); Carbon Dioxide 22.8 mmol/L (21.0-32.0); Chloride 108 mmol/L (98-107); Estimated GFR (African America 15 (>=60 mL/min/1.73m^2); Estimated GFR (Non-African Ame 12 (>=60 mL/min/1.73m^2); Globulin 3.2 g/dL; Glucose 153 mg/dL (74-106); Potassium 4.2 mmol/L (3.5-5.1); Sodium 140 mmol/L (136-145); Total Protein 5.2 g/dL (6.4-8.2)
[2024-12-06] MEDS: ACETAMINOPHEN 325 MG TABLET 650 MG PO ×2 (09:59→21:06)
[2024-12-06] MEDS: ASPIRIN 81 MG TABLET.DR PO (09:59)
[2024-12-06] MEDS: FAMOTIDINE 20 MG TABLET PO ×2 (09:59→21:07)
[2024-12-06] MEDS: CARVEDILOL 6.25 MG TABLET PO ×2 (10:00→21:06)
--- NOTE | 2024-12-06 11:09 | P.IMPN_ITS ---
Progress Note: A&P Assessment and Plan (1) Acute metabolic encephalopathy: Assessment and Plan: No acute finding on CTH. Likely due to severe dehydration, UTI. Mild improvement. C/w monitoring. (2) Generalized weakness: Assessment and Plan: Mild improvement. PT/OT eval. (3) RENÉ (acute kidney injury): Assessment and Plan: Prerenal, improving with IV hydration. Cr still considerably up from her baseline. Cr down to 3.6 (4) Urinary tract infection: Assessment and Plan: On IV rocephin. F/u urine cx. Qualifiers: Hematuria presence: without hematuria Urinary tract infection type: acute cystitis Qualified Code(s): N30.00 - Acute cystitis without hematuria (5) CKD stage 3b, GFR 30-44 ml/min: Assessment and Plan: P/w RENÉ. Monitor UO, serum Cr. (6) Diabetes: Assessment and Plan: on basal/bolus insulin. Lantus decreased to 20 units from home dose of 46 due to RENÉ Qualifiers: Diabetes mellitus type: type 2 Diabetes mellitus regional intermodal truck driver insulin use: with regional intermodal truck driver use Diabetes mellitus complication status: with kidney complications Diabetes mellitus complication detail: with chronic kidney disease Chronic kidney disease stage: stage 3 (moderate) Chronic kidney disease stage 3 subtype: stage 3b (GFR 30-44) Qualified Code(s): E11.22 - Type 2 diabetes mellitus with diabetic chronic kidney disease; N18.32 - Chronic kidney disease, stage 3b; Z79.4 - intermediate accountant (current) use of insulin (7) COPD (chronic obstructive pulmonary disease): Assessment and Plan: No active wheezing Monitor. Qualifiers: COPD type: unspecified COPD Qualified Code(s): J44.9 - Chronic obstructive pulmonary disease, unspecified (8) HTN (hypertension): Assessment and Plan: Hold Lisinopril, lasix. BP is reasonably controlled. IV hydralazine as needed. Qualifiers: Hypertension type: secondary to endocrine disorders Qualified Code(s): I15.2 - Hypertension secondary to endocrine disorders (9) HLD (hyperlipidemia): Assessment and Plan: C/w statin Internal Medicine - PN: Subj Subjective Interval history: Seen and examined. No overnight events. Good UO. Still confused but a little more awake and alert. Exam Constitutional Vital Signs, click to edit/add: Last Vital Signs Temp 98.1 F 12/06/24 07:52 Pulse 69 12/06/24 10:00 Resp 18 12/06/24 07:52 BP 140/62 12/06/24 07:52 Pulse Ox 93 L 12/06/24 07:52 O2 Del Method Room Air 12/06/24 07:52 O2 Flow Rate 2 12/05/24 12:19 General appearance: lethargic, ill appearing and frail appearing Orientation/consciousness: Yes confused Respiratory Common normals: normal respiratory effort, no use of accessory muscles and clear to auscultation bilaterally Auscultation: diminished lung sounds Cardio Common normals: regular rate, regular rhythm, S1 normal heart sound and S2 normal heart sound GI Common normals: Normal to inspection, nondistended, normoactive bowel sounds present, soft to palpation, non-tender and no hepatosplenomegaly Extremity Common normals: normal to inspection and no clubbing, cyanosis or edema Neuro [place] Coma Scale: document GCS findings [place] coma scale eye opening: Spontaneous [place] coma scale verbal response: Confused [place] coma scale motor response: Obey commands [place] coma scale total score: 14 Common normals: moves all extremities Other: Confused, intermittently follows commands Psych Other: Confused, disoriented. Internal Medicine - PN: Obj Da Labs Labs: Laboratory Results - last 24 hr 12/05/24 12/05/24 12/05/24 12:20 12:44 13:09 WBC 7.7 RBC 3.85 L Hgb 11.5 L Hct 36.1 MCV 93.8 MCH 29.9 MCHC 31.9 RDW 15.0 Plt Count 209 MPV 11.9 Neut % (Auto) 66.3 Lymph % (Auto) 19.1 L [place] % (Auto) 13.8 H Eos % (Auto) 0.1 L Baso % (Auto) 0.3 Neut # (Auto) 5.1 Lymph # (Auto) 1.5 [place] # (Auto) 1.1 H Eos # (Auto) 0.0 Baso # (Auto) 0.0 Abs Immat Gran (auto) 0.03 Imm/Tot Granulo (auto) 0.4 Sodium 139 Potassium 4.2 Chloride 101 Carbon Dioxide 27.8 Anion Gap 14.4 BUN 101.0 H* Creatinine 5.31 H* Est GFR ( Amer) 9 L Est GFR (Non-Af Amer) 8 L BUN/Creatinine Ratio 19.0 Glucose 190 H Lactate 1.6 Calcium 8.2 L Total Bilirubin 0.4 AST 161 H ALT 143 H Alkaline Phosphatase 104 Ammonia Troponin I High Sens 68.8 H* Total Protein 6.4 Albumin 2.6 L Globulin 3.8 Albumin/Globulin Ratio 0.7 TSH 3.657 Urine Color Brown A Urine Clarity Turbid A Urine pH 5.5 Ur Specific [place] >=1.030 A Urine Protein 100 A Urine Glucose (UA) Negative Urine Ketones Trace A Urine Occult Blood Large A Urine Nitrite Negative Urine Bilirubin Negative Urine Urobilinogen 0.2 Ur Leukocyte Esterase Moderate A Urine RBC 2-5 A Urine WBC >100 A Ur Squamous Epith Cells Few A Urine Crystals None seen Urine Bacteria Small A Urine Casts None seen Urine Mucus None seen Ur Culture Indicated? Yes POC Glucose 173 H 12/05/24 12/05/24 12/05/24 13:20 15:12 17:31 WBC RBC Hgb Hct MCV MCH MCHC RDW Plt Count MPV Neut % (Auto) Lymph % (Auto) [place] % (Auto) Eos % (Auto) Baso % (Auto) Neut # (Auto) Lymph # (Auto) [place] # (Auto) Eos # (Auto) Baso # (Auto) Abs Immat Gran (auto) Imm/Tot Granulo (auto) Sodium 140 Potassium 4.1 Chloride 104 Carbon Dioxide 26.6 Anion Gap 13.5 BUN 99.0 H* Creatinine 4.76 H Est GFR ( Amer) 11 L Est GFR (Non-Af Amer) 9 L BUN/Creatinine Ratio 20.8 Glucose 168 H Lactate Calcium 7.9 L Total Bilirubin AST ALT Alkaline Phosphatase Ammonia <10 L Troponin I High Sens Total Protein Albumin Globulin Albumin/Globulin Ratio TSH Urine Color Urine Clarity Urine pH Ur Specific [place] Urine Protein Urine Glucose (UA) Urine Ketones Urine Occult Blood Urine Nitrite Urine Bilirubin Urine Urobilinogen Ur Leukocyte Esterase Urine RBC Urine WBC Ur Squamous Epith Cells Urine Crystals Urine Bacteria Urine Casts Urine Mucus Ur Culture Indicated? POC Glucose 143 H 12/05/24 12/06/24 20:52 05:54 WBC 4.4 RBC 3.60 L Hgb 10.7 L Hct 33.5 L MCV 93.1 MCH 29.7 MCHC 31.9 RDW 14.8 Plt Count 156 MPV 11.7 Neut % (Auto) 67.3 Lymph % (Auto) 15.9 L [place] % (Auto) 12.3 H Eos % (Auto) 3.6 Baso % (Auto) 0.2 Neut # (Auto) 3.0 Lymph # (Auto) 0.7 L [place] # (Auto) 0.5 Eos # (Auto) 0.2 Baso # (Auto) 0.0 Abs Immat Gran (auto) 0.03 Imm/Tot Granulo (auto) 0.7 H Sodium 140 Potassium 4.2 Chloride 108 H Carbon Dioxide 22.8 Anion Gap 13.4 BUN 96.0 H* Creatinine 3.61 H Est GFR ( Amer) 15 L Est GFR (Non-Af Amer) 12 L BUN/Creatinine Ratio 26.6 Glucose 153 H Lactate Calcium 8.1 L Total Bilirubin 0.3 AST 102 H ALT 90 H Alkaline Phosphatase 82 Ammonia Troponin I High Sens Total Protein 5.2 L Albumin 2.0 L Globulin 3.2 Albumin/Globulin Ratio 0.6 TSH Urine Color Urine Clarity Urine pH Ur Specific [place] Urine Protein Urine Glucose (UA) Urine Ketones Urine Occult Blood Urine Nitrite Urine Bilirubin Urine Urobilinogen Ur Leukocyte Esterase Urine RBC Urine WBC Ur Squamous Epith Cells Urine Crystals Urine Bacteria Urine Casts Urine Mucus Ur Culture Indicated? POC Glucose 169 H Urinary Catheter Management Urinary Catheter Management 2-way Urethral: Cath placed during this visit: yes Urethral indwelling: Yes Reason for continuing: measure accurate output Insertion date: 12/05/24 Insertion time: 15:33
[2024-12-06 11:15] LABS: Glucometer 130 mg/dL (74-106)
[2024-12-06] MEDS: BUDESONIDE 0.5 MG/2 ML AMPULE NEB IH (11:58)
[2024-12-06] MEDS: OXYCODONE HCL 5 MG TABLET PO (14:48)
[2024-12-06 16:15] LABS: Glucometer 188 mg/dL (74-106)
[2024-12-06] MEDS: INSULIN ASPART 300 UNIT/3 ML PEN SUBQ ×2 (17:36→21:12)
[2024-12-06] MEDS: CEFTRIAXONE 1,000 MG in 0.9 % SODIUM CHLORIDE 50 ML 100 MG IV (17:36)
[2024-12-06] MEDS: ATORVASTATIN CALCIUM 40 MG TABLET 80 MG PO (21:07)
[2024-12-06] MEDS: MONTELUKAST SODIUM 10 MG TABLET PO (21:07)
[2024-12-06 21:10] LABS: Glucometer 196 mg/dL (74-106)
[2024-12-06] MEDS: INSULIN GLARGINE 300 UNIT/3 ML INSULN.PEN 20 UNIT SQ (21:12)
[2024-12-07] VITALS (22 sets, daily range): BP systolic 144–197; BP diastolic 57–76; PULSE 54–76; TEMP 36.6–37.2; O2SAT 91–99
[2024-12-07] MEDS: HEPARIN SODIUM (PORCINE) 5,000 UNIT/ML VIAL 5000 UNIT SUBQ ×3 (02:02→21:43)
[2024-12-07] MEDS: ONDANSETRON PF 4 MG/2 ML VIAL IV ×2 (02:41→14:36)
[2024-12-07] MEDS: LACTATED RINGER'S SOLUTION 1,000 ML 125 ML IV (03:44)
[2024-12-07] MEDS: ALBUTEROL SULFATE 2.5 MG/3 ML VIAL NEB CNTNEBULIZ ×4 (04:51→22:52)
[2024-12-07 06:20] LABS: Basophils Percent Auto 0.2 % (0.2-2.0); Eosinophils Absolute Auto 0.3 10^3/uL (0.0-0.7); Eosinophils Percent Auto 5.9 % (0.9-7.0); Hematocrit 30.3 % (36.0-48.0); Hemoglobin 9.5 g/dL (12.0-16.0); Immature Granulocytes Abs Auto 0.02 10^3/uL (0.00-0.03); Immature Granulocytes Pct Auto 0.5 % (0.0-0.5); Lymphocytes Absolute Auto 1.3 10^3/uL (1.2-3.8); Lymphocytes Percent Auto 29.9 % (20.5-60.0); Mean Corpuscular HGB Conc 31.4 g/dL (29.9-35.2); Mean Corpuscular Hemoglobin 29.4 pg (26.7-34.0); Mean Corpuscular Volume 93.8 fL (81.0-99.0); Mean Platelet Volume 11.4 fL (9.5-13.5); Monocytes Absolute Auto 0.5 10^3/uL (0.3-0.8); Monocytes Percent Auto 11.6 % (1.7-12.0); Neutrophils Absolute Auto 2.2 10^3/uL (1.4-6.5); Neutrophils Percent Auto 51.9 % (43.0-75.0); Platelet Count 150 10^3/uL (150-450); Red Blood Count 3.23 10^6/uL (4.20-5.40); Red Cell Distribution Width 14.7 % (11.0-15.0); White Blood Count 4.2 10^3/uL (4.0-11.0)
[2024-12-07 06:44] LABS: Alanine Aminotransferase 70 U/L (14-59); Albumin Globulin Ratio 0.6; Alkaline Phosphatase 92 U/L (46-116); Anion Gap 12.3; Aspartate Amino Transferase 64 U/L (15-37); BUN Creatinine Ratio 32.7; Bilirubin Total 0.2 mg/dL (0.2-1.0); Calcium 8.4 mg/dL (8.5-10.1); Carbon Dioxide 25.9 mmol/L (21.0-32.0); Chloride 109 mmol/L (98-107); Estimated GFR (African America 21 (>=60 mL/min/1.73m^2); Estimated GFR (Non-African Ame 17 (>=60 mL/min/1.73m^2); Globulin 3.1 g/dL; Glucose 142 mg/dL (74-106); Potassium 4.2 mmol/L (3.5-5.1); Sodium 143 mmol/L (136-145); Total Protein 5.1 g/dL (6.4-8.2)
[2024-12-07 07:22] LABS: Glucometer 142 mg/dL (74-106)
[2024-12-07] MEDS: FAMOTIDINE 20 MG TABLET PO ×2 (08:46→21:42)
[2024-12-07] MEDS: ASPIRIN 81 MG TABLET.DR PO (08:46)
[2024-12-07] MEDS: CARVEDILOL 6.25 MG TABLET PO ×2 (08:46→21:42)
[2024-12-07] MEDS: SODIUM CHLORIDE 0.45 % 1,000 ML 100 ML IV ×2 (08:46→19:31)
[2024-12-07] MEDS: BUDESONIDE 0.5 MG/2 ML AMPULE NEB IH ×2 (10:28→22:52)
--- NOTE | 2024-12-07 11:27 | PM.IMPN1 ---
Progress Note: A&P Assessment and Plan (1) Acute metabolic encephalopathy: Assessment and Plan: No acute finding on CTH. Likely due to severe dehydration, UTI. Back to baseline now. (2) Generalized weakness: Assessment and Plan: Still feeling weak overall. Mild improvement. PT/OT eval. (3) RENÉ (acute kidney injury): Assessment and Plan: Prerenal, improving with IV hydration. Cr now 2.6. Baseline is 1.8-2.0 (4) Urinary tract infection: Assessment and Plan: On IV rocephin. F/u urine cx. Qualifiers: Hematuria presence: without hematuria Urinary tract infection type: acute cystitis Qualified Code(s): N30.00 - Acute cystitis without hematuria (5) CKD stage 3b, GFR 30-44 ml/min: Assessment and Plan: P/w RENÉ. Monitor UO, serum Cr. (6) Diabetes: Assessment and Plan: on basal/bolus insulin. Lantus decreased to 20 units from home dose of 46 due to RENÉ Qualifiers: Diabetes mellitus type: type 2 Diabetes mellitus termite technician insulin use: with chcf use Diabetes mellitus complication status: with kidney complications Diabetes mellitus complication detail: with chronic kidney disease Chronic kidney disease stage: stage 3 (moderate) Chronic kidney disease stage 3 subtype: stage 3b (GFR 30-44) Qualified Code(s): E11.22 - Type 2 diabetes mellitus with diabetic chronic kidney disease; N18.32 - Chronic kidney disease, stage 3b; Z79.4 - long term care pharmacist (current) use of insulin (7) COPD (chronic obstructive pulmonary disease): Assessment and Plan: No active wheezing Monitor. Qualifiers: COPD type: unspecified COPD Qualified Code(s): J44.9 - Chronic obstructive pulmonary disease, unspecified (8) HTN (hypertension): Assessment and Plan: Hold Lisinopril, lasix. BP is reasonably controlled. IV hydralazine as needed. Qualifiers: Hypertension type: secondary to endocrine disorders Qualified Code(s): I15.2 - Hypertension secondary to endocrine disorders (9) HLD (hyperlipidemia): Assessment and Plan: C/w statin Qualifiers: Hyperlipidemia type: unspecified Qualified Code(s): E78.5 - Hyperlipidemia, unspecified Plan Overall improved but still feeling weak. Has poor PO intake. Will benefit from continued inpatient treatment/monitoring and IVF. PT/OT eval ordered. Internal Medicine - PN: Subj Subjective Interval history: Seen and examined. No overnight events. Feeling overall better but still weak and tired. Mental status is back to baseline now. Exam Constitutional Vital Signs, click to edit/add: Last Vital Signs Temp 98.0 F 12/07/24 07:55 Pulse 57 L 12/07/24 10:00 Resp 16 12/07/24 10:29 BP 157/64 H 12/07/24 07:55 Pulse Ox 93 L 12/07/24 10:29 O2 Del Method Room Air 12/07/24 10:29 O2 Flow Rate 2 12/05/24 12:19 General appearance: ill appearing and frail appearing Respiratory Common normals: normal respiratory effort, no use of accessory muscles and clear to auscultation bilaterally Auscultation: diminished lung sounds Cardio Common normals: regular rate, regular rhythm, S1 normal heart sound and S2 normal heart sound GI Common normals: Normal to inspection, nondistended, normoactive bowel sounds present, soft to palpation, non-tender and no hepatosplenomegaly Extremity Common normals: normal to inspection and no clubbing, cyanosis or edema Neuro [place] Coma Scale: document GCS findings [place] coma scale eye opening: Spontaneous [place] coma scale verbal response: Orientated [place] coma scale motor response: Obey commands [place] coma scale total score: 15 Common normals: moves all extremities and no focal motor deficits Other: Confused, intermittently follows commands Psych Common normals: mental status grossly normal, thought process normal, denies homicidal ideation and denies suicidal ideation Internal Medicine - PN: Obj Da Labs Labs: Laboratory Results - last 24 hr 12/06/24 12/06/24 12/07/24 16:11 21:08 05:45 WBC 4.2 RBC 3.23 L Hgb 9.5 L Hct 30.3 L MCV 93.8 MCH 29.4 MCHC 31.4 RDW 14.7 Plt Count 150 MPV 11.4 Neut % (Auto) 51.9 Lymph % (Auto) 29.9 Evangeline % (Auto) 11.6 Eos % (Auto) 5.9 Baso % (Auto) 0.2 Neut # (Auto) 2.2 Lymph # (Auto) 1.3 Evangeline # (Auto) 0.5 Eos # (Auto) 0.3 Baso # (Auto) 0.0 Abs Immat Gran (auto) 0.02 Imm/Tot Granulo (auto) 0.5 Sodium 143 Potassium 4.2 Chloride 109 H Carbon Dioxide 25.9 Anion Gap 12.3 BUN 88.0 H* Creatinine 2.69 H Est GFR ( Amer) 21 L Est GFR (Non-Af Amer) 17 L BUN/Creatinine Ratio 32.7 Glucose 142 H Calcium 8.4 L Total Bilirubin 0.2 AST 64 H ALT 70 H Alkaline Phosphatase 92 Total Protein 5.1 L Albumin 2.0 L Globulin 3.1 Albumin/Globulin Ratio 0.6 POC Glucose 188 H 196 H 12/07/24 07:20 WBC RBC Hgb Hct MCV MCH MCHC RDW Plt Count MPV Neut % (Auto) Lymph % (Auto) Evangeline % (Auto) Eos % (Auto) Baso % (Auto) Neut # (Auto) Lymph # (Auto) Evangeline # (Auto) Eos # (Auto) Baso # (Auto) Abs Immat Gran (auto) Imm/Tot Granulo (auto) Sodium Potassium Chloride Carbon Dioxide Anion Gap BUN Creatinine Est GFR ( Amer) Est GFR (Non-Af Amer) BUN/Creatinine Ratio Glucose Calcium Total Bilirubin AST ALT Alkaline Phosphatase Total Protein Albumin Globulin Albumin/Globulin Ratio POC Glucose 142 H Urinary Catheter Management Urinary Catheter Management 2-way Urethral: Cath placed during this visit: yes Urethral indwelling: Yes Reason for continuing: measure accurate output Insertion date: 12/05/24 Insertion time: 15:33
[2024-12-07 11:29] LABS: Glucometer 141 mg/dL (74-106)
[2024-12-07] MEDS: OXYCODONE HCL 5 MG TABLET PO (12:11)
[2024-12-07 16:40] LABS: Glucometer 163 mg/dL (74-106)
[2024-12-07] MEDS: CEFTRIAXONE 1,000 MG in 0.9 % SODIUM CHLORIDE 50 ML 100 MG IV (17:03)
[2024-12-07 20:14] LABS: Glucometer 153 mg/dL (74-106)
[2024-12-07] MEDS: INSULIN ASPART 300 UNIT/3 ML PEN SUBQ (21:42)
[2024-12-07] MEDS: INSULIN GLARGINE 300 UNIT/3 ML INSULN.PEN 20 UNIT SQ (21:42)
[2024-12-07] MEDS: ATORVASTATIN CALCIUM 40 MG TABLET 80 MG PO (21:42)
[2024-12-07] MEDS: MONTELUKAST SODIUM 10 MG TABLET PO (21:42)
[2024-12-08] VITALS (18 sets, daily range): BP systolic 155–195; BP diastolic 65–85; PULSE 57–75; TEMP 36.4–36.9; O2SAT 91–95
[2024-12-08] MEDS: HEPARIN SODIUM (PORCINE) 5,000 UNIT/ML VIAL 5000 UNIT SUBQ ×3 (03:22→21:34)
[2024-12-08] MEDS: ALBUTEROL SULFATE 2.5 MG/3 ML VIAL NEB CNTNEBULIZ (04:02)
[2024-12-08] MEDS: SODIUM CHLORIDE 0.45 % 1,000 ML 100 ML IV ×2 (05:29→15:50)
[2024-12-08 06:01] LABS: Basophils Percent Auto 0.5 % (0.2-2.0); Eosinophils Absolute Auto 0.2 10^3/uL (0.0-0.7); Hemoglobin 10.5 g/dL (12.0-16.0); Immature Granulocytes Abs Auto 0.02 10^3/uL (0.00-0.03); Immature Granulocytes Pct Auto 0.5 % (0.0-0.5); Lymphocytes Percent Auto 23.6 % (20.5-60.0); Mean Corpuscular HGB Conc 31.8 g/dL (29.9-35.2); Mean Corpuscular Hemoglobin 29.5 pg (26.7-34.0); Mean Corpuscular Volume 92.7 fL (81.0-99.0); Mean Platelet Volume 11.6 fL (9.5-13.5); Monocytes Absolute Auto 0.6 10^3/uL (0.3-0.8); Monocytes Percent Auto 12.5 % (1.7-12.0); Neutrophils Absolute Auto 2.6 10^3/uL (1.4-6.5); Neutrophils Percent Auto 57.9 % (43.0-75.0); Platelet Count 153 10^3/uL (150-450); Red Blood Count 3.56 10^6/uL (4.20-5.40); Red Cell Distribution Width 14.6 % (11.0-15.0); White Blood Count 4.4 10^3/uL (4.0-11.0)
[2024-12-08 06:26] LABS: Alanine Aminotransferase 66 U/L (14-59); Albumin Globulin Ratio 0.6; Albumin Level 2.1 g/dL (3.4-5.0); Alkaline Phosphatase 88 U/L (46-116); Anion Gap 10.5; Aspartate Amino Transferase 52 U/L (15-37); BUN Creatinine Ratio 34.8; Bilirubin Total 0.4 mg/dL (0.2-1.0); Calcium 8.8 mg/dL (8.5-10.1); Carbon Dioxide 26.9 mmol/L (21.0-32.0); Chloride 110 mmol/L (98-107); Estimated GFR (African America 31 (>=60 mL/min/1.73m^2); Estimated GFR (Non-African Ame 26 (>=60 mL/min/1.73m^2); Globulin 3.5 g/dL; Glucose 115 mg/dL (74-106); Potassium 4.4 mmol/L (3.5-5.1); Sodium 143 mmol/L (136-145); Total Protein 5.6 g/dL (6.4-8.2)
--- NOTE | 2024-12-08 09:17 | CM.NOTE ---
Rounds made with Dr. Curtis, no discharge today. Pt continues with underlying confusion to place and time.
--- NOTE | 2024-12-08 09:19 | XR_ITS ---
[address] [address] Patient Name: DAVID DUGAN MRN: [id number] date: 1940 Sex: F Assigned Patient Location: [place] Current Patient Location: [place] Accession/Order Number: [id number] Exam Date: 12/08/2024 08:55 Report Date: 12/08/2024 09:57 At the request of: TAMIKO PANG Procedure: XR acute abdomen series EXAMINATION: XR acute abdomen series HISTORY: abd pain COMPARISON: XR chest 12/05/2024 FINDINGS: LUNGS: Mild opacities within lung bases, left greater than right. MEDIASTINUM: Mild cardiomegaly. BOWEL GAS PATTERN: Non-obstructed. No abnormal dilation. Moderate stool burden. FREE AIR: None. CALCIFICATIONS: None significant. BONES: Scoliotic curvature and multilevel degenerative disc disease of lumbar spine. OTHER: Negative. XR/XR acute abdomen series IMPRESSION: 1. Evaluation is slightly limited by patient body habitus and AP portable technique. 2. Suspect mild bibasilar infiltrates or atelectasis. 3. Stable cardiomegaly. 4. No acute abdomen or pelvis findings. Electronically authenticated by: CANDICE GIVENS Date: 12/08/2024 09:57
--- NOTE | 2024-12-08 09:24 | SWNOTE1 ---
Pt is from the [facility]. SW to send updates to the [facility].
[2024-12-08] MEDS: CARVEDILOL 6.25 MG TABLET PO ×2 (09:25→21:33)
[2024-12-08] MEDS: ONDANSETRON PF 4 MG/2 ML VIAL IV (09:25)
[2024-12-08] MEDS: PANTOPRAZOLE SODIUM 40 MG VIAL IV (09:25)
[2024-12-08] MEDS: ASPIRIN 81 MG TABLET.DR PO (09:25)
--- NOTE | 2024-12-08 10:00 | P.PN_ITS ---
Progress Note: Subjective Subjective Interval history: Awakens easily, answers questions and seems appropriate but was confused as to current location. Exam Constitutional Vital Signs, click to edit/add: Last Vital Signs Temp 97.6 F 12/08/24 05:51 Pulse 66 12/08/24 08:00 Resp 18 12/08/24 04:02 BP 155/85 H 12/08/24 05:51 Pulse Ox 94 L 12/08/24 05:51 O2 Del Method Room Air 12/08/24 05:51 O2 Flow Rate 2 12/05/24 12:19 Documenting provider has reviewed patient's vital signs: yes Common normals: no apparent distress Chest Common normals: inspection of chest normal Respiratory Common normals: normal respiratory effort and no retractions Cardio Common normals: regular rate and regular rhythm GI Common normals: Normal to inspection, nondistended, normoactive bowel sounds present and soft to palpation; tender (Mild diffuse tenderness) Progress Note: Objective Labs Labs: Short CBC 12/08/24 Range/Units 05:35 WBC 4.4 (4.0-11.0) 10^3/uL Hgb 10.5 L (12.0-16.0) g/dL Hct 33.0 L (36.0-48.0) % Plt Count 153 (150-450) 10^3/uL BMP 12/08/24 05:35 Sodium 143 Potassium 4.4 Chloride 110 H Carbon Dioxide 26.9 BUN 65.0 H Creatinine 1.87 H Glucose 115 H Calcium 8.8 Liver Function 12/08/24 Range/Units 05:35 Total Bilirubin 0.4 (0.2-1.0) mg/dL AST 52 H (15-37) U/L ALT 66 H (14-59) U/L Alkaline Phosphatase 88 (46-116) U/L Albumin 2.1 L (3.4-5.0) g/dL Progress Note: A&P Assessment and Plan (1) Acute metabolic encephalopathy: (2) Generalized weakness: (3) RENÉ (acute kidney injury): (4) Urinary tract infection: Qualifiers: Hematuria presence: without hematuria Urinary tract infection type: acute cystitis Qualified Code(s): N30.00 - Acute cystitis without hematuria (5) CKD stage 3b, GFR 30-44 ml/min: (6) Diabetes: Qualifiers: Chronic kidney disease stage: stage 3 (moderate) Chronic kidney disease stage 3 subtype: stage 3b (GFR 30-44) Diabetes mellitus complication detail: with chronic kidney disease Diabetes mellitus complication status: with kidney complications Diabetes mellitus termite treater helper insulin use: with termite treater helper use Diabetes mellitus type: type 2 Qualified Code(s): E11.22 - Type 2 diabetes mellitus with diabetic chronic kidney disease; N18.32 - Chronic kidney disease, stage 3b; Z79.4 - longterm (current) use of insulin (7) COPD (chronic obstructive pulmonary disease): Qualifiers: COPD type: unspecified COPD Qualified Code(s): J44.9 - Chronic obstructive pulmonary disease, unspecified (8) 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 Qualified Code(s): I15.2 - Hypertension secondary to endocrine disorders (9) HLD (hyperlipidemia): Qualifiers: Hyperlipidemia type: unspecified Qualified Code(s): E78.5 - Hyperlipidemia, unspecified Plan Admission findings: Uncontrolled hypertension, acute renal failure (her baseline creatinine most recently was a creatinine of 1.75, her creatinine on admission was 5.31. She is 303.4% above baseline resulting in acute renal failure definition), due to significant dehydration and acute UTI with altered mental status Acute renal failure as outlined above-improving daily but still not back to baseline., Continue slow hydration Acute metabolic encephalopathy: Due to acute UTI and dehydration, overall improved but still with some disorientation Generalized weakness: PT OT eval today Urinary tract infection: White blood cell count stable so we will maintain current antibiotics, check on culture results CKD stage 3b, GFR 30-44 ml/min: Monitor daily Diabetes: Insulin sliding scale COPD (chronic obstructive pulmonary disease): Lungs are clear HTN (hypertension): Continue current medications HLD (hyperlipidemia): Continue with current medications Abdominal pain this morning-check acute abdominal series, no rebound tenderness Elevated liver function test-this is likely secondary to passive congestion- improved today Severe protein calorie malnutrition-diet management GERD-change patient IV Protonix secondary to the abdominal pain as outlined above Admission status: Patient mated with acute renal failure, medically necessary treatment will span 2 midnights. Inpatient status Urinary Catheter Management Urinary Catheter Management 2-way Urethral: Cath placed during this visit: yes Urethral indwelling: Yes Reason for continuing: measure accurate output Insertion date: 12/05/24 Insertion time: 15:33
[2024-12-08] MEDS: BUDESONIDE 0.5 MG/2 ML AMPULE NEB IH (10:48)
[2024-12-08] MEDS: ALBUTEROL SULFATE 2.5 MG/3 ML VIAL NEB IH ×2 (10:48→16:19)
--- NOTE | 2024-12-08 11:30 | PT.DAILY ---
Physical Therapy Daily Note PT Daily Note/Assess Start: 12/08/24 11:26 Freq: Status: Active Protocol: Document 12/08/24 11:26 CHRIS (Rec: 12/08/24 11:30 CHRIS [id number]) Physical Therapy Daily Note/Assessment Time In/Time Out Time In 11:15 Time Out 11:25 Pain In Pain N/A Pain Out Pain N/A Subjective Subjective Pt supine upon arrival. Initially declines PT due to frequent diarrhea but does end up agreeable to bed level LE ex. Therapeutic Exercise Time Therapeutic Exercise 8 Minutes (minutes) Therapeutic Exercise 1 Units Therapeutic Exercise Treatment Therapeutic Exercise Supine bilat AP, QS, GS, AA heel slides, AA abd slides, Treatment AA SLR, SAQ, AA IR/ER hip rocks 10x ea. Increased time to complete. Remains supine with call light within reach and dialed for her. Total Physical Therapy Time Total Therapy 8 Minutes Total Physical 1 Therapy Units Summary Daily Note Summary Limited session due to frequent diarrhea - requires AA for most supine LE strengthening ex on this date.
[2024-12-08 11:31] LABS: Glucometer 123 mg/dL (74-106)
[2024-12-08] MEDS: ENSURE HP 237 ML LIQUID PO ×2 (11:50→21:33)
--- NOTE | 2024-12-08 14:01 | SWNOTE1 ---
SW stopped in and spoke with pt's sister. Pt's is not feeling well now so he will not be in. Pt's sister did have concerns about pt's care at the [facility] and she was also asking about the bed hold. AYAH advised sister that SW will call over to [facility] to see if they can speak with her since is not feeling well. AYAH spoke to Ismael at [facility]. Ismael voiced to have her call Gracia at the [facility] to discuss the care at [facility]. AYAH asked about bed hold. Ismael stated that she has 5 referrals and 2 beds for tomorrow. She will have more beds at the end of the week. Ismael voiced she can't promise anything. SW let pt's sister know to call Gracia and what was said about the bed hold. Pt's sister is going over to the [facility] now to speak with them. As of now plan is for pt to return to [facility] skilled.
--- NOTE | 2024-12-08 14:23 | SWNOTE1 ---
Important Message from [employer] reviewed and discussed with patient's , Anup, via telephone. Pt's verbalized understanding and SW signed the form that it was reviewed. Original placed in pt's room and copy placed in patient?s chart.
[2024-12-08 16:52] LABS: Glucometer 133 mg/dL (74-106)
[2024-12-08] MEDS: CEFTRIAXONE 1,000 MG in 0.9 % SODIUM CHLORIDE 50 ML 100 MG IV (17:12)
[2024-12-08 21:23] LABS: Glucometer 121 mg/dL (74-106)
[2024-12-08] MEDS: MONTELUKAST SODIUM 10 MG TABLET PO (21:33)
[2024-12-08] MEDS: ATORVASTATIN CALCIUM 40 MG TABLET 80 MG PO (21:33)
[2024-12-08] MEDS: HYDRALAZINE HCL 20 MG/ML VIAL 10 MG IVP (22:16)
[2024-12-09] VITALS (13 sets, daily range): BP systolic 154–192; BP diastolic 69–80; PULSE 64–79; TEMP 36.6–36.8; O2SAT 90–941
[2024-12-09] MEDS: SODIUM CHLORIDE 0.45 % 1,000 ML 100 ML IV (01:11)
[2024-12-09] MEDS: ALBUTEROL SULFATE 2.5 MG/3 ML VIAL NEB IH (05:20)
[2024-12-09] MEDS: HEPARIN SODIUM (PORCINE) 5,000 UNIT/ML VIAL 5000 UNIT SUBQ (05:28)
[2024-12-09 05:44] LABS: Basophils Percent Auto 0.4 % (0.2-2.0); Eosinophils Absolute Auto 0.2 10^3/uL (0.0-0.7); Eosinophils Percent Auto 4.9 % (0.9-7.0); Hematocrit 34.4 % (36.0-48.0); Hemoglobin 10.9 g/dL (12.0-16.0); Immature Granulocytes Abs Auto 0.04 10^3/uL (0.00-0.03); Immature Granulocytes Pct Auto 0.9 % (0.0-0.5); Lymphocytes Absolute Auto 0.9 10^3/uL (1.2-3.8); Lymphocytes Percent Auto 21.1 % (20.5-60.0); Mean Corpuscular HGB Conc 31.7 g/dL (29.9-35.2); Mean Corpuscular Hemoglobin 28.9 pg (26.7-34.0); Mean Corpuscular Volume 91.2 fL (81.0-99.0); Mean Platelet Volume 11.2 fL (9.5-13.5); Monocytes Absolute Auto 0.5 10^3/uL (0.3-0.8); Monocytes Percent Auto 11.4 % (1.7-12.0); Neutrophils Absolute Auto 2.7 10^3/uL (1.4-6.5); Neutrophils Percent Auto 61.3 % (43.0-75.0); Platelet Count 171 10^3/uL (150-450); Red Blood Count 3.77 10^6/uL (4.20-5.40); Red Cell Distribution Width 14.4 % (11.0-15.0); White Blood Count 4.5 10^3/uL (4.0-11.0)
[2024-12-09 06:04] LABS: Alanine Aminotransferase 50 U/L (14-59); Albumin Globulin Ratio 0.7; Albumin Level 2.3 g/dL (3.4-5.0); Alkaline Phosphatase 92 U/L (46-116); Anion Gap 10.8; Aspartate Amino Transferase 41 U/L (15-37); BUN Creatinine Ratio 28.2; Bilirubin Total 0.6 mg/dL (0.2-1.0); Calcium 8.9 mg/dL (8.5-10.1); Carbon Dioxide 25.5 mmol/L (21.0-32.0); Chloride 109 mmol/L (98-107); Estimated GFR (African America 47 (>=60 mL/min/1.73m^2); Estimated GFR (Non-African Ame 39 (>=60 mL/min/1.73m^2); Globulin 3.5 g/dL; Glucose 154 mg/dL (74-106); Potassium 4.3 mmol/L (3.5-5.1); Sodium 141 mmol/L (136-145); Total Protein 5.8 g/dL (6.4-8.2)
[2024-12-09] MEDS: HYDRALAZINE HCL 20 MG/ML VIAL 10 MG IVP (06:08)
--- OUTSIDE RECORDS SUMMARY | 2024-12-09 07:35 | XMS_ITS | CCD ---
Author Organization [facility] Care Team Providers Care Bed And Breakfast Cook Name Role Phone ROBERTO PARHAMAB A Attending Unavailable ROBERTO PARHAMAB Dino Admitting Unavailable FURLONG, FERNIE Referring Unavailable [...] Furlong DO Fernie G Primary Care Provider [phone] MOE PARHAM Attending Unavailable DARELL SYLVESTER Attending Unavailable Furlong, DO Enciso Primary Care Provider [phone] MD Gia Munoz Attending Provider FURLONG, FERNIE [...] Adhesive Tape Substance Allergy 04-24-20 13 [facility] Povidone-Iodine (1 source) Povidone-Iodine Drug Allergy 04-24-20 13 [facility] Sulfonamides (antibiotic) (1 source) Sulfonamides (Antibiotic) Drug Allergy 04-24-20 13 [facility] Tetracyclines (antibiotic) (1 source) Tetracyclines Drug Allergy 04-24-20 13 [facility] (20 sources) Povidone-Iodine; Translations: [POVIDONE-IODINE] Drug Allergy 11-25-19 15 rash [facility] [facility] Other (10 sources) Sulfonamides (Antibiotic) Propensity to adverse reactions [facility] Other (13 sources) Tetracycline Drug Allergy 11-16-19 24 [facility] (12 sources) Adhesive 1 x6yd Drug allergy 11-08-20 23 [facility] (12 sources) Amlodipine & Diet Manage Prod Drug allergy 11-08-20 23 [facility] (2 sources) Povidone-Iodine; Translations: [Betadine] Drug Allergy 04-23-20 13 rash [facility] Repository (20 sources) Contrast media; Translations: [RED DYE] Drug allergy (disorder) 05-04-20 17 Rash [facility] Repository (4 sources) Desonide Drug Allergy 04-23-20 13 Rash [facility] Repository (1 source) Sulfonamides (Antibiotic) Drug allergy (disorder) 04-23-20 13 [facility] Repository (1 source) Tetracycline Drug Allergy 04-23-20 13 [facility] (20 sources) Adhesive agent; Translations: [ADHESIVE] Propensity to adverse reactions to drug 11-25-19 15 Other (See Comments), Itching [facility] (20 sources) dilTIAZem; Translations: [DILTIAZEM] Drug Allergy 09-01-20 [facility] Work Phone: (20 sources) Linagliptin; Translations: [LINAGLIPTIN] Drug Allergy 09-01-20 [facility] (20 sources) Sulfonamides (Antibiotic); Translations: [SULFA (SULFONAMIDE ANTIBIOTICS)] Propensity to adverse reactions to drug 11-25-19 15 [facility] (20 sources) Tetracycline (class of antibiotic); Translations: [TETRACYCLINES] Propensity to adverse reactions to drug 11-25-19 15 [facility] (20 sources) Adhesive Tape-Silicones; Translations: [ADHESIVE TAPE-SILICONES] Propensity to adverse reactions to drug 05-04-20 [facility] Work Phone: (20 sources) Sulfa Dyne; Translations: [SULFA DYNE] Propensity to adverse reactions to drug 09-14-20 [facility] Medications Current Medications Medication Drug Class(es) [...] as needed Orally TWICE A DAY Active [id number] 200 actuat albuterol 0.09 mg/actuat metered dose [...] morning. Active take 2 tablets by mo [facility] every twenty-four hours Allopurinol 100 MG [...] total) by mouth in the morning. Active atorvastatin 80 mg oral tablet (20 [...] once daily. Active take 1 capsule by [facility] every twenty-four hours Biotin Maximum Strength 5000 MCG 1 capsule Orally Once a day Active take 1 capsule by mo [facility] every twenty-four hours Biotin Maximum Strength 5000 MCG 1 capsule Orally Once a day Active blood-glucose meter (TRUE METRIX GLUCOSE METER) misc (5 sources) Start: 11-18-2024 blood-glucose meter (TRUE METRIX [...] Subcutaneous ONCE A WEEK Active estrogens, conjugated (retirement) 0.625 mg/ml vaginal cream (5 sources) Estrogen [...] April 30, 2024 11:00pm Fish,Bora,Flax Oils-Om3,6,9n o1 ([place] 3-6-9) 1,200 mg capsule (2 sources) Start: 05-01-2024 Fish,Bora,Flax Oils-Om3,6,9no1 ([place] 3-6-9) 1,200 mg capsule Active CAP PO April 30, 2024 11:00pm Start: 05-01-2024 Fish,Bora,Flax Oils-Om3,6,9no1 ([place] 3-6-9) 1,200 mg capsule Active CAP PO [...] PO Twice daily May 01, 2024 12:00am take 2 tablets by mo uth twice daily furosemide (LASIX) 40 mg tablet furosemide 40 mg tablet Take 2 tablets twice a day by oral route for 90 days. Active glucosamine sulfate 500 mg oral tablet (20 [...] disease, with long-term current use of insulin [place] Inject 46 Units under the skin in the morning. 45 mL 3 05/22/2023 Active inject 0.46 mL by stallings bcutaneous injection once daily insulin glargine (LANTUS) 100 unit/mL injection Inject 0.46 mL (46 Units total) under the skin nightly. Active inject 46 [IU] by stallings bcutaneous [...] total) in the evening. Inject before meals. Active inject 6 [IU] by sub cutaneous [...] 12:00am levocetirizine dihydrochloride 5 mg oral tablet (20 sources) Histamine-1 Receptor Antagonist Start: 08-28-2024 take [...] Once April 30, 2024 11:00pm Start: 11-20-2022 End: 02-25-2024 metoclopramide (REGLAN) 10 m g tablet Take 1 tablet (10 mg total) by mouth in the morning and 1 tablet (10 mg total) at noon and 1 tablet (10 mg total) in the evening and 1 tablet (10 mg total) before bedtime. 360 tablet 1 11/20/2022 02/25/2024 Discontinued (Therapy completed) take 1 tablet by willa th every [...] For Her 50 + - Orally Active fjlkvnzh-yxkn-QV-calcium &mi ns (THERAGRAN-M) 9 mg iron-400 mcg tablet (20 sources) oakurfdy-pdwo-DM -calcium &mins (THERAGRAN-M) 9 mg iron-400 mcg tablet Take 1 tablet by mouth in the morning. Active yrisqmji-mvtb-AN -calcium &mins (THERAGRAN-M) 9 mg iron-400 mcg [...] TAB PO Daily May 01, 2024 12:00am [place] 3-6-9 Complex - (10 sources) [place] 3-6-9 Comp fawad - Orally Active omega-3 [...] 3 05/07/2023 Active take 1 capsule by [facility] every twenty-four hours Omeprazole 20 MG 1 cap(s) Orally Once a day Active take 1 capsule by mo [facility] every twelve hours Omeprazole 20 MG 1 cap(s) Orally bid Active pregabalin 75 mg oral capsule (20 sources) Start: 05-01-2024 End: 12-02-2024 take 1 capsule by mouth once daily pregabalin (LYRICA) 75 mg capsule Indications: Lumbar stenosis with neurogenic claudication Take 1 capsule (75 mg total) by mouth daily. 14 capsule 12/02/2024 Active pregabalin (LYRI CA) 75 mg capsule daily. Active take 1 capsule by [facility] every twelve hours Lyrica 75 MG 1 capsule Orally Twice a da y Active ProAir HFA 108 (90 Base) MCG/ACT (3 sources) take 2 puff(s) by inhalation every six hours as needed ProAir HFA 108 (90 Base) MCG/ACT 2 puffs as needed Inhalation every 6 hrs Active ramipril 10 mg oral capsule (20 sources) Angiotensin Converting Enzyme Inhibitor Start: 11-17-19 End: 11-03-20 24 ramipriL (ALTACE) 10 mg capsule TAKE 1 CAPSULE DAILY 90 capsule 3 11/13/2023 Active 1000 ml sodium chloride 9 mg/ml [...] TABLET DAILY 90 tablet 3 03/19/2023 Active traMADol hydrochloride 50 mg oral tablet (20 sources) Opioid Agonist Start: 12-02-2024 End: 12-07-2024 take 1 tablet by mouth every six hours as needed for pain traMADoL (ULTRAM) 50 mg tablet Indications: Lumbar stenosis with neurogenic claudication Take 1 tablet (50 mg total) by mouth every 6 (six) hours as needed for pain for up to 5 days. 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 [...] metabolic disease] Episodic Other upper respiratory disease (15 sources) Perennial allergic rhinitis; Translations: [Other allergic [...] Spondylosis; intervertebral disc disorders; other back problems (14 sources) Intervertebral disc disorders with radiculopathy, lumbar [...] (20 sources) Mood disorders Onset: 10-18-2023 Resolved: 02-25-2024 10-18-2023 Neoplasms of unspecified nature or uncertain behavior (20 sources) Neoplasm of uncertain behavior of skin of finger; Translations: [Neoplasm of uncertain behavior of skin] Onset: 09-01-2022 09-01-2022 Episodic Other aftercare (3 sources) residential (current) use of insulin; 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 PERFORMED BY: [place] [address] PATHOLOGIST TIMBER DEADENER MARIO PUTNAM M.D. Normal [facility] Comment on above: Performed By: #### C UU #### [address] MAGNESIUMon 11-17-2024 Magnesium [Mass/Vol] 1.8 mg/dL Normal 1.8-2.6 [facility] Comment on above: Performed By: #### 1 9123-9 ####[facility] ([id number])[address] [place] [address] MAGNESIUMon 11-10-2024 Magnesium [Mass/Vol] 1.8 mg/dL Normal 1.8-2.6 [facility] Comment on above: Performed By: #### 1 9123-9 ####[facility] ([id number])[address] [place] [address], [place] [address] MAGNESIUMon 11-03-2024 Magnesium [Mass/Vol] 1.7 mg/dL Low 1.8-2.6 [facility] Comment on above: Performed By: #### 1 9123-9 ####[facility] ([id number])[address] [place] [address], [place] [address] MAGNESIUMon 10-27-2024 Magnesium [Mass/Vol] 1.8 mg/dL Normal 1.8-2.6 [facility] Comment on above: Performed By: #### 1 9123-9 ####[facility] ([id number])[address] [place] [address], [place] [address] MAGNESIUMon 10-20-2024 Magnesium [Mass/Vol] 1.9 mg/dL Normal 1.8-2.6 [facility] Comment on above: Performed By: #### 1 9123-9 ####[facility] ([id number])[address] [place] [address] MAGNESIUMon 10-13-2024 Magnesium [Mass/Vol] 1.8 mg/dL Normal 1.8-2.6 [facility] Comment on above: Performed By: #### 1 9123-9 ####[facility] ([id number])[address] [place] [address] MAGNESIUMon 10-06-2024 Magnesium [Mass/Vol] 1.7 mg/dL Low 1.8-2.6 [facility] Comment on above: Performed By: #### 1 9123-9 ####[facility] ([id number])[address] [place] [address] MAGNESIUMon 09-29-2024 Magnesium [Mass/Vol] 1.7 mg/dL Low 1.8-2.6 [facility] Comment on above: Performed By: #### 1 9123-9 ####[facility] ([id number])[address] [place] [address] Glucose Glucometer (BldC) [M ass/Vol]on 09-26-2024 Glucose [Mass/Vol] 154 mg/dL High 65-99 [facility] Surgical Pathologyon 024 Surgical Pathology Normal [facility] Comment on above: Result Comment: [facility] [address] [place] [address] Surgical Pathology ConsultationPatient Name:ADORE DUGAN:1940 (Age: 83)Gender:FTaken:4Reported:10/01/2024hysician(s):Daniel Guerrero MD ([phone])Copy To: Rec. #:[id number]: #[id number] Pathologic Diagnosis1. Duodenum, second portion, biopsy: Duodenal mucosa with no significant diagnostic abnormality. No evidence of celiac disease.2. Duodenum, bulb, biopsy: Ectopic gastric mucosa.3. Stomach, polypectomy: Fundic gland polyp.4. Esophagus, distal, biopsy: Junctional mucosa with no significant diagnostic abnormality. No evidence of intestinal metaplasia. Report Electronically Signed Out/4Rpaula Coto MDInterpretation performed at [facility], [address] [place] [address], License number: [id number].Clinical History Ross's esophagus.Gross Description1. Received in formalin labeled [facility], second portion of duodenum are two light abbott soft tissue bits, 0.2 cm each. The specimen is filtered and entirely submitted in a single cassette. (1, ns, [id number],m3) DM.2. .Received in formalin labeled [facility], duodenal bulb biopsies are three light abbott soft tissue bits, 0.2 cm each. The specimen is filtered and entirely submitted in a single cassette. (1, ns, [id number],m3) DM.3. Received in formalin labeled [facility], fundic gland polyp is a light abbott soft tissue bit, 0.3 cm. The specimen is filtered and entirely submitted in a single cassette. (1, ns, [id number],m3) DM.4. Received in formalin labeled [facility], distal esophageal biopsy are three pale-abbott soft tissue bits, 0.2 cm each. The specimen is filtered and entirely submitted in a single cassette. (1, ns, [id number],m3) DM.dm/09/27/2024GRSpecimen(s) Received1: Second portion of duodenum biopsies2: Duodenal bulb biopsy3: Fundic gland polyp4: Esophageal distal biopsyFee Codes(s):1; 456313; 072812; 752808; 03834 MAGNESIUMon 09-22-2024 Magnesium [Mass/Vol] 1.8 mg/dL Normal 1.8-2.6 [facility] Comment on above: Performed By: #### 1 9123-9 ####[facility] ([id number])[address] [place] [address] MAGNESIUMon 09-15-2024 Magnesium [Mass/Vol] 1.8 mg/dL Normal 1.8-2.6 [facility] Comment on above: Performed By: #### 1 9123-9 ####[facility] ([id number])[address] [place] [address] MAGNESIUMon 09-08-2024 Magnesium [Mass/Vol] 1.7 mg/dL Low 1.8-2.6 [facility] Comment on above: Performed By: #### 1 9123-9 ####[facility] ([id number])[address] [place] [address] MAGNESIUMon 09-01-2024 Magnesium [Mass/Vol] 1.8 mg/dL Normal 1.8-2.6 [facility] Comment on above: Performed By: #### 1 9123-9 ####[facility] ([id number])[address] [place] [address] MAGNESIUMon 08-25-2024 Magnesium [Mass/Vol] 1.6 mg/dL Low 1.8-2.6 [facility] Comment on above: Performed By: #### 1 9123-9 ####[facility] ([id number])[address] [place] [address] MAGNESIUMon 08-18-2024 Magnesium [Mass/Vol] 1.6 mg/dL Low 1.8-2.6 [facility] Comment on above: Performed By: #### 1 9123-9 ####[facility] ([id number])[address] [place] [address] MAGNESIUMon 08-11-2024 Magnesium [Mass/Vol] 1.6 mg/dL Low 1.8-2.6 [facility] Comment on above: Performed By: #### 1 9123-9 ####[facility] ([id number])[address] [place] [address] MAGNESIUMon 08-04-2024 Magnesium [Mass/Vol] 1.5 mg/dL Low 1.8-2.6 [facility] Comment on above: Performed By: #### 1 9123-9 ####[facility] ([id number])[address] [place] [address] MAGNESIUMon 07-28-2024 Magnesium [Mass/Vol] 1.5 mg/dL Low 1.8-2.6 [facility] Comment on above: Performed By: #### 1 9123-9 ####[facility] ([id number])[address] [place] [address] MAGNESIUMon 07-21-2024 Magnesium [Mass/Vol] 1.6 mg/dL Low 1.8-2.6 [facility] Comment on above: Performed By: #### 1 9123-9 ####[facility] ([id number])[address] [place] [address], [place] [address] MAGNESIUMon 07-15-2024 Magnesium [Mass/Vol] 1.5 mg/dL Low 1.8-2.6 [facility] Comment on above: Performed By: #### 1 9123-9 ####[facility] ([id number])[address] [place] [address], [place] [address] MAGNESIUMon 07-07-2024 Magnesium [Mass/Vol] 1.6 mg/dL Low 1.8-2.6 [facility] Comment on above: Performed By: #### 1 9123-9 ####[facility] ([id number])[address] [place] [address], [place] [address] MAGNESIUMon 06-30-2024 Magnesium [Mass/Vol] 1.6 mg/dL Low 1.8-2.6 [facility] Comment on above: Performed By: #### 1 9123-9 ####[facility] ([id number])[address] [place] [address], [place] [address] MAGNESIUMon 06-23-2024 Magnesium [Mass/Vol] 1.7 mg/dL Low 1.8-2.6 [facility] Comment on above: Performed By: #### 1 9123-9 ####[facility] ([id number])[address] [place] [address] MAGNESIUMon 06-16-2024 Magnesium [Mass/Vol] 1.7 mg/dL Low 1.8-2.6 [facility] Comment on above: Performed By: #### 1 9123-9 ####[facility] ([id number])[address] [place] [address], [place] [address] MAGNESIUMon 06-09-2024 Magnesium [Mass/Vol] 1.7 mg/dL Low 1.8-2.6 [facility] Comment on above: Performed By: #### 1 9123-9 ####[facility] ([id number])[address] [place] [address] MAGNESIUMon 06-02-2024 Magnesium [Mass/Vol] 1.6 mg/dL Low 1.8-2.6 [facility] Comment on above: Performed By: #### 1 9123-9 ####[facility] ([id number])[address] [place] [address] URINE CULTUREon 05-30-2024 Bacteria identified Cx Nom [...] TOBRAMYCIN S <=1 F TRIMETH/SULFAMETHOXAZOL E S <=/ F Susceptible [facility] Comment on above: Performed By: #### 6 30-4 #### [facility] ([id number]) [address], [address] [place] [address] URINE CULTUREon 05-27-2024 Bacteria identified Cx Nom (U) CULTURE RESULTS MULTIPLE SPECIES PRESENT. PROBABLE COLLECTION CONTAMINATION. SUGGEST REPEAT SPECIMEN. Normal [facility] Comment on above: Performed By: #### 6 30-4 #### [facility] ([id number]) [address], [address] [place] [address] MAGNESIUMon 05-26-2024 Magnesium [Mass/Vol] 1.6 mg/dL Low 1.8-2.6 [facility] Comment on above: Performed By: #### 1 9123-9 ####[facility] ([id number])[address] [place] [address] MAGNESIUMon 05-19-2024 Magnesium [Mass/Vol] 1.7 mg/dL Low 1.8-2.6 [facility] Comment on above: Performed By: #### 1 9123-9 ####[facility] ([id number])[address] [place] [address] MAGNESIUMon 05-12-2024 Magnesium [Mass/Vol] 1.6 mg/dL Low 1.8-2.6 [facility] Comment on above: Performed By: #### 1 9123-9 ####[facility] ([id number])[address] [facility], [address] [place] [address] MAGNESIUMon 05-05-2024 Magnesium [Mass/Vol] 1.4 mg/dL Low 1.8-2.6 [facility] Comment on above: Performed By: #### 1 9123-9 ####[facility] ([id number])[address] [place] [address] MAGNESIUMon 04-28-2024 Magnesium [Mass/Vol] 1.5 mg/dL Low 1.8-2.6 [facility] Comment on above: Performed By: #### 1 9123-9 ####[facility] ([id number])[address] [place] [address] COMPLETE BLOOD COUNTon 04-21 Erythrocyte distribution width (RBC) [Ratio] 16.6 % High 11.5-15.0 [facility] Comment on above: Performed By: #### C BC, UPCR, FEPR, , RENAL, 3084-1, 2276-4, 2731-8, 90982-0 ####[facility] ([id number])[address], [address] [place] [address] Hematocrit (Bld) [Volume fraction] 33.8 % Low 35-47 [facility] Comment on above: Performed By: #### C BC, UPCR, FEPR, 46734-4, RENAL, 3084-1, 2276-4, 2731-8, 61959-4 ####[facility] ([id number])[address], [address] [address] Hemoglobin (Bld) [Mass/Vol] 11.0 g/dL Low 11.7-15.5 [facility] Comment on above: Performed By: #### C BC, UPCR, FEPR, 65244-6, RENAL, 3084-1, 2276-4, 2731-8, 48453-8 ####[facility] ([id number])[address], [address] [place] [address] MCH (RBC) [Entitic mass] 30.0 pg Normal 27-34 [facility] Comment on above: Performed By: #### C BC, UPCR, FEPR, 87178-7, RENAL, 4-1, 2276-4, 2731-8, 16697-2 ####[facility] ([id number])[address] [address] [place] [address] MCHC (RBC) [Mass/Vol] 32.7 g/dL Normal 32-36 [facility] Comment on above: Performed By: #### C BC, UPCR, FEPR, 47930-7, RENAL, 3084-1, 2276-4, 2731-8, 38522-0 ####[facility] ([id number])[address], [address] [place] [address] MCV (RBC) [Entitic vol] 92 fL Normal 80-100 [facility] Comment on above: Performed By: #### C BC, UPCR, FEPR, 79673-7, RENAL, 3084-1, 2276-4, 2731-8, 94022-7 ####[facility] ([id number])[address], [address] [place] [address] Platelet mean volume (Bld) [Entitic vol] 9.5 fL Normal 7-12 [facility] Comment on above: Performed By: #### C BC, UPCR, FEPR, 32832-0, RENAL, 3084-1, 2276-4, 2731-8, 37519-1 ####[facility] ([id number])[address], [address] [address] Platelets (Bld) [#/Vol] 182 10*3/uL Normal 150-450 [facility] Comment on above: Performed By: #### C BC, UPCR, FEPR, 16161-3, RENAL, 3084-1, 2276-4, 2731-8, 02636-3 ####[facility] ([id number])[address], [address] [address] RBC COUNT 3.68 X10E12/L Low 3.80-5.20 [facility] Comment on above: Performed By: #### C BC, UPCR, FEPR, 98632-0, RENAL, 3084-1, 2276-4, 2731-8, 44748-3 ####[facility] ([id number])[address], [address] [place] [address] WBC (Bld) [#/Vol] 6.2 10*3/uL Normal 4.0-11.0 [facility] Comment on above: Performed By: #### C BC, UPCR, FEPR, 74762-7, RENAL, 3084-1, 2276-4, 2731-8, 15963-7 ####[facility] ([id number])[address], [address] [place] [address] FERRITINon 04-21-2024 Ferritin [Mass/Vol] 113 ng/mL Normal 11-307 [facility] Comment on above: Performed By: #### C BC, UPCR, FEPR, 26939-5, RENAL, 3084-1, 2276-4, 2731-8, 89723-9 ####[facility] ([id number])[address], [address] [address] IRON PROFILEon 04-21-2024 Iron [Mass/Vol] 56 ug/dL Normal 50-170 [facility] Comment on above: Performed By: #### C BC, UPCR, FEPR, 62656-7, RENAL, 3084-1, 2276-4, 2731-8, 00666-2 ####[facility] ([id number])[address], [address] [place] [address] IRON BINDING 307 ug/dL Normal 250-425 [facility] Comment on above: Performed By: #### C BC, UPCR, FEPR, 39487-1, RENAL, 3084-1, 2276-4, 2731-8, 63268-3 ####[facility] ([id number])[address] [address] [place] [address] IRON SATURATION 18 % SATURATION Normal 15-50 [facility] Comment on above: Performed By: #### C BC, UPCR, FEPR, 07310-9, RENAL, 3084-1, 2276-4, 2731-8, 36367-9 ####[facility] ([id number])[address], [address] [place] [address] MAGNESIUMon 04-21-2024 Magnesium [Mass/Vol] 1.4 mg/dL Low 1.8-2.6 [facility] Comment on above: Performed By: #### C BC, UPCR, FEPR, 02907-5, RENAL, 3084-1, 2276-4, 2731-8, 67258-2 ####[facility] ([id number])[address], [address] [place] [address] PROTEIN CREAT RATIOon 2023 RANDOM URINE PROTEIN 470 mg/L High <120 [facility] Comment on above: Performed By: #### C BC, UPCR, FEPR, 54077-5, RENAL, 3084-1, 2276-4, 2731-8, 97935-3 ####[facility] ([id number])[address], [address], [place] [address] U/PRO/DESTINATION SIGN REPAIRER RATIO CALC 0.50 High <0.2 [facility] Comment on above: Result Comment: Neph rotic Syndrome is associated with ratios >3.5 Performed By: #### C BC, UPCR, FEPR, 97035-7, RENAL, 3084-1, 2276-4, 2731-8, 33389-2 ####[facility] ([id number])[address], [address], [place] [address] URINE CREATININE,RDM 94.29 mg/dL Normal [facility] Comment on above: Performed By: #### C BC, UPCR, FEPR, 71967-6, RENAL, 3084-1, 2276-4, 2731-8, 98520-9 ####[facility] ([id number])[address], [address], [place] [address] Parathyrin.intact [Mass/Vol] on 04-21-2024 PTH INTACT 168 pg/mL High 12-88 [facility] Comment on above: Performed By: #### C BC, UPCR, FEPR, 94310-6, RENAL, 3084-1, 2276-4, 2731-8, 65323-6 ####[facility] ([id number])[address], [address], [place] [address] RENAL PANELon 04-21-2024 Albumin [Mass/Vol] 3.7 g/dL Normal 3.2-5.3 [facility] Comment on above: Performed By: #### C BC, UPCR, FEPR, 41663-6, RENAL, 3084-1, 2276-4, 2731-8, 23733-9 ####[facility] ([id number])[address], [address], [place] [address] Anion gap [Moles/Vol] 11 mmol/L Normal 5-15 [facility] Comment on above: Performed By: #### C BC, UPCR, FEPR, 37308-5, RENAL, 3084-1, 2276-4, 2731-8, 81197-9 ####[facility] ([id number])[address], [address], [place] [address] Calcium [Mass/Vol] 8.9 mg/dL Normal 8.5-10.5 [facility] Comment on above: Performed By: #### C BC, UPCR, FEPR, 83012-0, RENAL, 3084-1, 2276-4, 2731-8, 05493-1 ####[facility] ([id number])[address], [address], [place] [address] Chloride [Moles/Vol] 106 mmol/L Normal 98-109 [facility] Comment on above: Performed By: #### C BC, UPCR, FEPR, 17773-2, RENAL, 3084-1, 2276-4, 2731-8, 51684-6 ####[facility] ([id number])[address], [address], [place] [address] CO2 [Moles/Vol] 26 mmol/L Normal 22-32 [facility] Comment on above: Performed By: #### C BC, UPCR, FEPR, 50322-6, RENAL, 3084-1, 2276-4, 2731-8, 18717-5 ####[facility] ([id number])[address], [address], [place] [address] Creatinine [Mass/Vol] 1.78 mg/dL High 0.40-1.00 [facility] Comment on above: Result Comment: METH OD TRACEABLE TO IDMS STANDARD Performed By: #### C BC, UPCR, FEPR, 84864-9, RENAL, 3084-1, 2276-4, 2731-8, 38117-3 ####[facility] ([id number])[address] [address] [place] [address] GFR/1.73 sq M.predicted among non-blacks MDRD (S/P/Bld) [Vol rate/Area] 28 mL/min/{1.73_m2} Low >59 [facility] Comment on above: Result Comment: Repo rted eGFR is based on theCKD-EPI 2020 equation that doesnot use a race coefficient. Performed By: #### C BC, UPCR, FEPR, 07194-9, RENAL, 3084-1, 2276-4, 2731-8, 06301-5 ####[facility] ([id number])[address] [address] [address] Glucose [Mass/Vol] 157 mg/dL High 65-99 [facility] Comment on above: Performed By: #### C BC, UPCR, FEPR, 27952-9, RENAL, 3084-1, 2276-4, 2731-8, 70969-6 ####[facility] ([id number])[address] [address] [place] [address] Phosphate [Mass/Vol] 3.8 mg/dL Normal 2.4-4.9 [facility] Comment on above: Performed By: #### C BC, UPCR, FEPR, 77753-7, RENAL, 3084-1, 2276-4, 2731-8, 79572-8 ####[facility] ([id number])[address] [address], [place] [address] Potassium [Moles/Vol] 4.2 mmol/L Normal 3.5-5.0 [facility] Comment on above: Performed By: #### C BC, UPCR, FEPR, 39843-8, RENAL, 3084-1, 2276-4, 2731-8, 71228-4 ####[facility] ([id number])[address] [address], [place] [address] Sodium [Moles/Vol] 143 mmol/L Normal 134-146 [facility] Comment on above: Performed By: #### C BC, UPCR, FEPR, 26912-3, RENAL, 3084-1, 2276-4, 2731-8, 72454-1 ####[facility] ([id number])[address], [address] [address] Urea nitrogen [Mass/Vol] 42 mg/dL High 5-27 [facility] Comment on above: Performed By: #### C BC, UPCR, FEPR, 70261-1, RENAL, 3084-1, 2276-4, 2731-8, 29772-1 ####[facility] ([id number])[address], [address] [place] [address] URIC ACIDon 04-21-2024 Urate [Mass/Vol] 4.3 mg/dL Normal 2.6-7.2 [facility] Comment on above: Performed By: #### C BC, UPCR, FEPR, 89074-6, RENAL, 3084-1, 2276-4, 2731-8, 87050-3 ####[facility] ([id number])[address], [address] [address] URINALYSISon 04-21-2024 Bilirubin Ql (U) Negative Normal NEG [facility] Comment on above: Performed By: #### U A ####[facility] ([id number])[address], [address] [place] [address], [place] [address] BLOOD/HGB Trace Abnormal NEG [facility] Comment on above: Performed By: #### U A ####[facility] ([id number])[address], [address], [place] [address] Color (U) YELLOW Normal YELLOW [facility] Comment on above: Performed By: #### U A ####[facility] ([id number])[address], [address], [place] [address] Glucose Ql (U) Negative Normal NEG [facility] Comment on above: Performed By: #### U A ####[facility] ([id number])[address], [address], [place] [address] Ketones Ql (U) Negative Normal NEG [facility] Comment on above: Performed By: #### U A ####[facility] ([id number])[address], [address], [place] [address] Leukocyte esterase Test strip Ql (U) Large Abnormal NEG [facility] Comment on above: Performed By: #### U A ####[facility] ([id number])[address], [address], [place] [address] MUCOUS PRESENT Abnormal NONE [facility] Comment on above: Performed By: #### U A ####[facility] ([id number])[address], [address], [place] [address] Nitrite Ql (U) Negative Normal NEG [facility] Comment on above: Performed By: #### U A ####[facility] ([id number])[address], [address], [place] [address] pH (U) 6.0 [pH] Normal 5.0-8.5 [facility] Comment on above: Performed By: #### U A ####[facility] ([id number])[address], [address], [place] [address] Protein Ql (U) 50 mg/dL Abnormal NEG [facility] Comment on above: Performed By: #### U A ####[facility] ([id number])[address], [address], [place] [address] R.B.CELLS 5 /hpf Normal 0-5 [facility] Comment on above: Performed By: #### U A ####[facility] ([id number])[address] [address], [place] [address] Specific gravity (U) [Rel density] 1.014 Normal 1.003-1.035 [facility] Comment on above: Performed By: #### U A ####[facility] ([id number])[address] [address], [place] [address] SQUAMOUS EPITHELIUM 1 /hpf Normal 0-5 [facility] Comment on above: Performed By: #### U A ####[facility] ([id number])[address] [address], [place] [address] TURBIDITY HAZY Abnormal CLEAR [facility] Comment on above: Performed By: #### U A ####[facility] ([id number])[address] [address], [place] [address] Urobilinogen (U) [Mass/Vol] mg/dL Normal <1.1 [facility] Comment on above: Performed By: #### U A ####[facility] ([id number])[address] [address], [place] [address] W.B.CELLS 455 /hpf High 0-5 [facility] Comment on above: Performed By: #### U A ####[facility] ([id number])[address] [address], [place] [address] WBC CLUMPS RARE Abnormal NONE [facility] Comment on above: Performed By: #### U A ####[facility] ([id number])[address] [address], [place] [address] Vitamin D+Metabolites [Mass/ Vol]on 04-21-2024 VITAMIN D 25 HYD TOT 32.8 ng/mL Normal 30-100 [facility] Comment on above: Result Comment: Radha min D status 25 [place] Vitamin D Deficiency <20 ng/mLInsufficiency 20-29 ng/mLSufficiency 30-100 ng/mLToxicity >100 ng/mLNOTE: A pediatric reference range has not beenestablished by the director data architecture of this kit.The [place] [employer] recommendsa Vitamin D level of = or >20ng/mL in infantsand children. Performed By: #### C BC, UPCR, FEPR, 07242-9, RENAL, 3084-1, 2276-4, 2731-8, 45696-7 ####[facility] ([id number])[address] [place] [address], [address] [place] [address] MAGNESIUMon 04-14-2024 Magnesium [Mass/Vol] 1.6 mg/dL Low 1.8-2.6 [facility] Comment on above: Performed By: #### 1 9123-9 ####[facility] ([id number])[address] [place] [address] MAGNESIUMon 04-08-2024 Magnesium [Mass/Vol] 1.5 mg/dL Low 1.8-2.6 [facility] Comment on above: Performed By: #### 1 9123-9 ####[facility] ([id number])[address] [place] [address] MAGNESIUMon 03-31-2024 Magnesium [Mass/Vol] 1.7 mg/dL Low 1.8-2.6 [facility] Comment on above: Performed By: #### 1 9123-9 ####[facility] ([id number])[address] [place] [address] MAGNESIUMon 03-24-2024 Magnesium [Mass/Vol] 1.6 mg/dL Low 1.8-2.6 [facility] Comment on above: Performed By: #### 1 9123-9 ####[facility] ([id number])[address] [place] [address], [place] [address] MAGNESIUMon 03-17-2024 Magnesium [Mass/Vol] 1.6 mg/dL Low 1.8-2.6 [facility] Comment on above: Performed By: #### 1 9123-9 ####[facility] ([id number])[address] [place] [address] MAGNESIUMon 03-10-2024 Magnesium [Mass/Vol] 1.6 mg/dL Low 1.8-2.6 [facility] Comment on above: Performed By: #### 1 9123-9 ####[facility] ([id number])[address] [place] [address], [place] [address] MAGNESIUMon 03-03-2024 Magnesium [Mass/Vol] 1.8 mg/dL Normal 1.8-2.6 [facility] Comment on above: Performed By: #### 1 9123-9 ####[facility] ([id number])[address] [place] [address], [place] [address] MAGNESIUMon 02-25-2024 Magnesium [Mass/Vol] 1.9 mg/dL Normal 1.8-2.6 [facility] Comment on above: Performed By: #### 1 9123-9 ####[facility] ([id number])[address] [place] [address] MAGNESIUMon 02-18-2024 Magnesium [Mass/Vol] 1.9 mg/dL Normal 1.8-2.6 [facility] Comment on above: Performed By: #### 1 9123-9 ####[facility] ([id number])[address] [place] [address], [place] [address] MAGNESIUMon 02-11-2024 Magnesium [Mass/Vol] 2.0 mg/dL Normal 1.8-2.6 [facility] Comment on above: Performed By: #### 1 9123-9 ####[facility] ([id number])[address] [place] [address] MAGNESIUMon 02-04-2024 Magnesium [Mass/Vol] 1.8 mg/dL Normal 1.8-2.6 [facility] Comment on above: Performed By: #### 1 9123-9 ####[facility] ([id number])[address] [place] [address] MAGNESIUMon 01-28-2024 Magnesium [Mass/Vol] 1.8 mg/dL Normal 1.8-2.6 [facility] Comment on above: Performed By: #### 1 9123-9 ####[facility] ([id number])[address] [place] [address] MAGNESIUMon 01-21-2024 Magnesium [Mass/Vol] 1.7 mg/dL Low 1.8-2.6 [facility] Comment on above: Performed By: #### 2 823-3, 87086-8 ####[facility] ([id number])[address] [place] [address] POTASSIUMon 01-21-2024 Potassium [Moles/Vol] 3.6 mmol/L Normal 3.5-5.0 [facility] Comment on above: Performed By: #### 2 823-3, 57477-7 ####[facility] ([id number])[address] [place] [address] MAGNESIUMon 01-14-2024 Magnesium [Mass/Vol] 1.6 mg/dL Low 1.8-2.6 [facility] Comment on above: Performed By: #### 1 9123-9 ####[facility] ([id number])[address] [place] [address] MAGNESIUMon 01-07-2024 Magnesium [Mass/Vol] 1.7 mg/dL Low 1.8-2.6 [facility] Comment on above: Performed By: #### 1 9123-9 ####[facility] ([id number])[address] [place] [address] MAGNESIUMon 12-31-2023 Magnesium [Mass/Vol] 1.7 mg/dL Low 1.8-2.6 [facility] Comment on above: Performed By: #### 1 9123-9 ####[facility] ([id number])[address] [place] [address] MAGNESIUMon 12-24-2023 Magnesium [Mass/Vol] 1.6 mg/dL Low 1.8-2.6 [facility] Comment on above: Performed By: #### 1 9123-9 ####[facility] ([id number])[address] [place] [address] MAGNESIUMon 12-17-2023 Magnesium [Mass/Vol] 1.5 mg/dL Low 1.8-2.6 [facility] Comment on above: Performed By: #### 1 9123-9 ####[facility] ([id number])[address] [place] [address] MAGNESIUMon 12-10-2023 Magnesium [Mass/Vol] 1.7 mg/dL Low 1.8-2.6 [facility] Comment on above: Performed By: #### 1 9123-9 ####[facility] ([id number])[address] [place] [address] MAGNESIUMon 12-03-2023 Magnesium [Mass/Vol] 1.7 mg/dL Low 1.8-2.6 [facility] Comment on above: Performed By: #### 1 9123-9 ####[facility] ([id number])[address] [place] [address] [place] [address] COMPREHENSIVE METABOLIC PANE Jared 11-26-2023 Albumin [Mass/Vol] 3.9 g/dL Normal 3.2-5.3 [facility] Comment on above: Performed By: #### 1 9123-9 ####[facility] ([id number])[address] [place] [address]#### JAS, 54606-6 ####[facility] ([id number])[address], [address], [place] [address] ALP [Catalytic activity/Vol] 122 U/L Normal 39-130 [facility] Comment on above: Performed By: #### 1 9123-9 ####[facility] ([id number])[address] [place] [address]#### JAS, 51367-6 ####[facility] ([id number])[address], [address], [place] [address] ALT [Catalytic activity/Vol] 29 U/L Normal 0-31 [facility] Comment on above: Performed By: #### 1 9123-9 ####[facility] ([id number])[address] [place] [address]#### JAS, 24009-0 ####[facility] ([id number])[address], [address], [place] [address] Anion gap [Moles/Vol] 9 mmol/L Normal 5-15 [facility] Comment on above: Performed By: #### 1 9123-9 ####[facility] ([id number])[address] [place] [address] [place] [address]#### CMP, 66884-9 ####[facility] ([id number])[address], [address], [place] [address] AST [Catalytic activity/Vol] 22 U/L Normal 0-41 [facility] Comment on above: Performed By: #### 1 9123-9 ####[facility] ([id number])[address] [place] [address]#### CMP, 80803-5 ####[facility] ([id number])[address], [place] [address] Bilirubin [Mass/Vol] 0.4 mg/dL Normal 0.3-1.2 [facility] Comment on above: Performed By: #### 1 9123-9 ####[facility] ([id number])[address] [place] [address]#### JAS, 90711-3 ####[facility] ([id number])[address], [address], [place] [address] Calcium [Mass/Vol] 9.7 mg/dL Normal 8.5-10.5 [facility] Comment on above: Performed By: #### 1 9123-9 ####[facility] ([id number])[address] [place] [address]892#### JAS, 78655-0 ####[facility] ([id number])[address], [place] [address] Chloride [Moles/Vol] 103 mmol/L Normal 98-109 [facility] Comment on above: Performed By: #### 1 9123-9 ####[facility] ([id number])[address] [place] [address]#### JAS, 51133-0 ####[facility] ([id number])[address], [place] [address] CO2 [Moles/Vol] 30 mmol/L Normal 22-32 [facility] Comment on above: Performed By: #### 1 9123-9 ####[facility] ([id number])[address] [place] [address]#### CMP, 36308-9 ####[facility] ([id number])[address] [address] Creatinine [Mass/Vol] 1.53 mg/dL High 0.40-1.00 [facility] Comment on above: Result Comment: METH OD TRACEABLE TO IDMS STANDARD Performed By: #### 1 9123-9 ####[facility] ([id number])[address] [place] [address]#### JAS, 40485-8 ####[facility] ([id number])[address] [address] GFR/1.73 sq M.predicted among non-blacks MDRD (S/P/Bld) [Vol rate/Area] 34 mL/min/{1.73_m2} Low >59 [facility] Comment on above: Result Comment: Repo rted eGFR is based on theCKD-EPI 2020 equation that doesnot use a race coefficient. Performed By: #### 1 9123-9 ####[facility] ([id number])[address] [place] [address]27#### JAS, 49678-8 ####[facility] ([id number])[address] [address] Glucose [Mass/Vol] 165 mg/dL High 65-99 [facility] Comment on above: Performed By: #### 1 9123-9 ####[facility] ([id number])[address] [place] [address]289#### JAS, 97198-9 ####[facility] ([id number])[address] [address] Potassium [Moles/Vol] 4.4 mmol/L Normal 3.5-5.0 [facility] Comment on above: Performed By: #### 1 9123-9 ####[facility] ([id number])[address] [place] [address]49#### CMP, 90567-8 ####[facility] ([id number])[address], [address] [place] [address] Protein [Mass/Vol] 7.1 g/dL Normal 6.0-8.0 [facility] Comment on above: Performed By: #### 1 9123-9 ####[facility] ([id number])[address] [place] [address]47#### CMP, 54923-7 ####[facility] ([id number])[address], [address] [place] [address] Sodium [Moles/Vol] 142 mmol/L Normal 134-146 [facility] Comment on above: Performed By: #### 1 9123-9 ####[facility] ([id number])[address] [place] [address]373#### JAS, 33780-1 ####[facility] ([id number])[address], [address] [place] [address] Urea nitrogen [Mass/Vol] 43 mg/dL High 5-27 [facility] Comment on above: Performed By: #### 1 9123-9 ####[facility] ([id number])[address] [place] [address] 53897#### CMP, 83645-9 ####[facility] ([id number])[address], [address] [place] [address] HGB A1C (GLYCO-HGB)on 2023 Glucose [Mass/Vol] 163 mg/dL Normal [facility] Comment on above: Performed By: #### 1 9123-9 ####[facility] ([id number])[address] [place] [address]78#### CMP, 75161-6 ####[facility] ([id number])[address] [facility], [address] [place] [address] HbA1c (Bld) [Mass fraction] 7.3 % High 4.4-5.6 [facility] Comment on above: Result Comment: NOTE ADA Guidelines Result HgbA1c Normal : less than 5.7 % Prediabetes : 5.7 % to 6.4 % Diabetes : > 6.4 %Use with caution in patients with abnormal hemoglobin variants asthe half-life of red blood cells and in vivo glycation rates areaffected. Performed By: #### 1 9123-9 ####[facility] ([id number])[address] [place] [address] 24063#### JAS, 14582-3 ####[facility] ([id number])[facility] [address] Lipid 1996 panelon 4 Cholesterol [Mass/Vol] 145 mg/dL Low 150-200 [facility] Comment on above: Performed By: #### 1 9123-9 ####[facility] ([id number])[address] [place] [address] 27652#### JAS, 51561-9 ####[facility] ([id number])[address] [address] Cholesterol in HDL [Mass/Vol] 53 mg/dL Normal >39 [facility] Comment on above: Result Comment: HDL <40 mg/dL - High RiskHDL > or = 40mg/dL- DesirableHDL >60 mg/dL - Negative Risk Performed By: #### 1 9123-9 ####[facility] ([id number])[address] [place] [address]#### CMP, 90066-4 ####[facility] ([id number])[address], [address] [place] [address] Cholesterol in LDL [Mass/Vol] 43 mg/dL Normal <130 [facility] Comment on above: Result Comment: LDL <100 mg/dL - DesirableLDL >160 mg/dL - High Risk Performed By: #### 1 9123-9 ####[facility] ([id number])[address] [place] [address] 19361#### JAS, 92884-0 ####[facility] ([id number])[address], [address] [place] [address] Cholesterol in VLDL [Mass/Vol] 49 mg/dL High 0-30 [facility] Comment on above: Performed By: #### 1 9123-9 ####[facility] ([id number])[address] [place] [address] 6[address]#### JAS, 80946-5 ####[facility] ([id number])[address], [address] [place] [address] CHOLESTEROL:HDL 2.7 Normal 1.0-5.0 [facility] Comment on above: Performed By: #### 1 9123-9 ####[facility] ([id number])[address] [place] [address]#### CMP, 50798-1 ####[facility] ([id number])[address], [address] [place] [address]297 Triglyceride [Mass/Vol] 245 mg/dL High 27-150 [facility] Comment on above: Performed By: #### 1 9123-9 ####[facility] ([id number])[address] [place] [address]90#### JAS, 88346-8 ####[facility] ([id number])[address] [facility], [address] [place] [address] MAGNESIUMon 11-26-2023 Magnesium [Mass/Vol] 1.8 mg/dL Normal 1.8-2.6 [facility] Comment on above: Performed By: #### 1 9123-9 ####[facility] ([id number])[address] [place] [address]07#### JAS, 72437-2 ####[facility] ([id number])[address] [facility] [address] [place] [address] MICROALBUMIN - ALBUMIN:CREAT ININE URINE RATIOon 11-26-2023 ALB/CREAT RATIO 352.8 mg/g creat High 0.0-30.0 [facility] Comment on above: Performed By: #### M ALBU #### [facility] ([id number]) [address] [place] [address] Albumin DL <= 20 mg/L (U) [Mass/Vol] 14.6 mg/dL High 0.0-1.9 [facility] Comment on above: Performed By: #### M ALBU #### [facility] ([id number]) [address] [place] [address]65 URINE CREAT 41.38 mg/dL Normal [facility] Comment on above: Performed By: #### M ALBU #### [facility] ([id number]) [address] [place] [address] Office Visiton 11-19-2023 Follow-up visit [id number] Adore Dugan 1940 F Date Provider Department Center 11/19/2023 DARELL HOUSTON [facility] Family History Problem Relation Age of Onset Heart attack Mother Family Status - Relation Status Age at Mother Level of Service:[address] [place] OFFICE/OUTPATIENT ESTABLISHED LOW MDM 20 MIN Normal [facility] Magnesium [Mass/volume] in S asiya or PlasmaOrdered By: Gia Munoz on 11-16-2023 Magnesium [Mass/Vol] 1.4 mg/dL 1.9-2.7 [facility] Multiple labsOrdered By: Mary Ann Carter on 11-16-2023 [facility] PTH INTACTon 01-16-2023 PTH, Intact 115 pg/mL Critically high 15-65 [facility] Comment on above: Performed By: #### M G, URIC, RENAL #### [facility] [address] [address] [address] Nacho Jeffery FERRITINon 01-15-2023 Ferritin [Mass/Vol] 304.0 ng/mL Critically high 8.0-252.0 [facility] Comment on above: Performed By: #### M G, URIC, RENAL #### [facility] [address] [address] [address] Nacho Jeffery HEMOGRAM AND PLATELon 2022 Hematocrit (Bld) [Volume fraction] 36.0 % Normal 36.0-48.0 [facility] Comment on above: Performed By: #### M G, URIC, RENAL #### [facility] [address] [address] [address] Nacho Jeffery Hemoglobin (Bld) [Mass/Vol] 11.6 g/dL Critically low 12.0-16.0 [facility] Comment on above: Performed By: #### M G, URIC, RENAL #### [facility] [address] [address] [address] Nacho Jeffery MCH (RBC) [Entitic mass] 29.4 pg Normal 26.7-34.0 [facility] Comment on above: Performed By: #### M G, URIC, RENAL #### [facility] [address] [address] [address] Nacho Jeffery MCHC (RBC) [Mass/Vol] 32.2 g/dL Normal 29.9-35.2 [facility] Comment on above: Performed By: #### M G, URIC, RENAL #### [facility] [address] [address] [address] Nacho Jeffery MCV (RBC) [Entitic vol] 91.4 fL Normal 81.0-99.0 [facility] Comment on above: Performed By: #### M G, URIC, RENAL #### [facility] [address] [address] [address] Nacho Jeffery PLT 202 103/ul Normal 150-450 [facility] Comment on above: Performed By: #### M G, URIC, RENAL #### [facility] [address] [address] [address] Nacho Jeffery RBC 3.94 106/ul Critically low 4.20-5.40 [facility] Comment on above: Performed By: #### M G, URIC, RENAL #### [facility] [address] [address] [address] Nacho Jeffery WBC 5.9 103/ul Normal 4.0-11.0 [facility] Comment on above: Performed By: #### M G, URIC, RENAL #### [facility] [address] [place] [address] Dr. Nacho Jeffery IRON AND TIBCon 01-15-2023 % SATURATION 23.4 % Normal [facility] Comment on above: Performed By: #### M G, URIC, RENAL #### [facility] [address] [address] [address] Nacho Jeffery Iron [Mass/Vol] 62.0 ug/dL Normal 50.0-170.0 [facility] Comment on above: Performed By: #### M G, URIC, RENAL #### [facility] [address] [address] [address] Nacho Jeffery TIBC DIRECT 265.0 ug/dL Normal 250.0-450.0 [facility] Comment on above: Performed By: #### M G, URIC, RENAL #### [facility] [address] [address] [address] Nacho Jeffery MAGNESIUMon 01-15-2023 Magnesium [Mass/Vol] 1.5 mg/dL Critically low 1.8-2.4 [facility] Comment on above: Performed By: #### M G, URIC, RENAL #### [facility] [address] [address] [address] Nacho Jeffery RENAL FUNCTION PANELon 01-15 Albumin [Mass/Vol] 3.4 g/dL Normal 3.4-5.0 [facility] Comment on above: Performed By: #### M G, URIC, RENAL #### [facility] [address] [address] [address] Nacho Jeffery Calcium [Mass/Vol] 9.2 mg/dL Normal 8.5-10.1 [facility] Comment on above: Performed By: #### M G, URIC, RENAL #### [facility] [address] [address] [address] Nacho Jeffery Chloride [Moles/Vol] 104 mmol/L Normal 98-107 [facility] Comment on above: Performed By: #### M G, URIC, RENAL #### [facility] [address] [address] [address] Nacho Jeffery CO2 [Moles/Vol] 30.8 mmol/L Normal 21.0-32.0 [facility] Comment on above: Performed By: #### M G, URIC, RENAL #### [facility] [address] [address] [address] Nacho Jeffery Creatinine [Mass/Vol] 1.52 mg/dL Critically high 0.55-1.02 [facility] Comment on above: Performed By: #### M G, URIC, RENAL #### [facility] [address] [address] [address] Nacho Jeffery EGFR-AF BRITISH 40 mL/min/1.73m2 Critically low >=60 [facility] Comment on above: Performed By: #### M G, URIC, RENAL #### [facility] [address] [address] [address] Nacho Jeffery EGFR-NON AF BRITISH 33 mL/min/1.73m2 Critically low >=60 [facility] Comment on above: Performed By: #### M G, URIC, RENAL #### [facility] [address] [place] [address] Dr. Nacho Jeffery Glucose [Mass/Vol] 172 mg/dL Critically high 74-106 [facility] Comment on above: Performed By: #### M G, URIC, RENAL #### [facility] [address] [place] [address] Dr. Nacho Jeffery Phosphate [Mass/Vol] 3.7 mg/dL Normal 2.6-4.7 [facility] Comment on above: Performed By: #### M G, URIC, RENAL #### [facility] [address] [place] [address] Dr. Nacho Jeffery Potassium [Moles/Vol] 4.2 mmol/L Normal 3.5-5.1 [facility] Comment on above: Performed By: #### M G, URIC, RENAL #### [facility] [address] [place] [address] Dr. Nacho Jeffery Sodium [Moles/Vol] 143 mmol/L Normal 136-145 [facility] Comment on above: Performed By: #### M G, URIC, RENAL #### [facility] [address] [place] [address] Dr. Nacho Jeffery Urea nitrogen [Mass/Vol] 56.0 mg/dL Critically high 7.0-18.0 [facility] Comment on above: Performed By: #### M G, URIC, RENAL #### [facility] [address] [place] [address] Dr. Nacho Jeffery UA RANDOM W/MICROSCOPICon BACTERIA NONE SEEN Normal NONE SEEN [facility] Comment on above: Performed By: #### M G, URIC, RENAL #### [facility] [address] [place] [address] Dr. Nacho Jeffery Bilirubin Ql (U) Negative Normal NEGATIVE [facility] Comment on above: Performed By: #### M G, URIC, RENAL #### [facility] [address] [place] [address] Dr. Nacho Jeffery CAST NONE SEEN Normal NONE SEEN [facility] Comment on above: Performed By: #### M G, URIC, RENAL #### [facility] [address] [address] [address] Nacho Jeffery Clarity (U) CLEAR Normal CLEAR [facility] Comment on above: Performed By: #### M G, URIC, RENAL #### [facility] [address] [address] [address] Nacho Jeffery Color (U) LT. YELLOW Normal YELLOW [facility] Comment on above: Performed By: #### M G, URIC, RENAL #### [facility] [address] [address] [address] Nacho Jeffery Crystals LM Nom (Urine sed) NONE SEEN Normal NONE SEEN [facility] Comment on above: Performed By: #### M G, URIC, RENAL #### [facility] [address] [place] [address] Dr. Nacho Jeffery Epithelial cells LM Ql (Urine sed) RARE Normal NONE SEEN /RARE [facility] Comment on above: Performed By: #### M G, URIC, RENAL #### [facility] [address] [place] [address] Dr. Nacho Jeffery Glucose Ql (U) Negative Normal NEGATIVE [facility] Comment on above: Performed By: #### M G, URIC, RENAL #### [facility] [address] [place] [address] Dr. Nacho Jeffery Hemoglobin Ql (U) Negative Normal NEGATIVE [facility] Comment on above: Performed By: #### M G, URIC, RENAL #### [facility] [address] [address] [address] Nacho Jeffery Ketones Ql (U) Negative Normal NEGATIVE [facility] Comment on above: Performed By: #### M G, URIC, RENAL #### [facility] [address] [place] [address] Dr. Nacho Jeffery LEUKOCYTES TRACE Abnormal NEGATIVE [facility] Comment on above: Performed By: #### M G, URIC, RENAL #### [facility] [address] [address] [address] Nacho Jeffery MUCOUS NONE SEEN Normal NONE SEEN [facility] Comment on above: Performed By: #### M G, URIC, RENAL #### [facility] [address] [address] [address] Nacho Jeffery Nitrite Ql (U) Negative Normal NEGATIVE [facility] Comment on above: Performed By: #### M G, URIC, RENAL #### [facility] [address] [address] [address] Nacho Jeffery pH (U) 5.5 [pH] Normal 5-9 [facility] Comment on above: Performed By: #### M G, URIC, RENAL #### [facility] [address] [place] [address] Dr. Nacho Jeffery RBC 0-2 Normal 0-2 [facility] Comment on above: Performed By: #### M G, URIC, RENAL #### [facility] [address] [place] [address] Dr. Nacho Jeffery SPEC GRAVITY 1.015 Normal 1.005-<=1.025 [facility] Comment on above: Performed By: #### M G, URIC, RENAL #### [facility] [address] [place] [address] Dr. Nacho Jeffery UA PROTEIN Negative Normal NEGATIVE/ TRACE [facility] Comment on above: Performed By: #### M G, URIC, RENAL #### [facility] [address] [place] [address] Dr. Nacho Jeffery Urobilinogen Qn (U) 0.2 {Zuleyka'U}/dL Normal 0.2 - 1. 0 [facility] Comment on above: Performed By: #### M G, URIC, RENAL #### [facility] [address] [place] [address] Dr. Nacho Jeffery WBC 2-5 Abnormal NONE SEEN [facility] Comment on above: Performed By: #### M G, URIC, RENAL #### [facility] [address] [place] [address] Dr. Nacho Jeffery URIC ACID SERUMon 01-15-2023 Urate [Mass/Vol] 7.0 mg/dL Critically high 2.6-6.0 [facility] Comment on above: Performed By: #### M G, URIC, RENAL #### [facility] [address] [address] [address] Nacho Jeffery URINE T PROTEIN CREAT RATIOo n 01-15-2023 Protein (U) [Mass/Vol] 13.4 mg/dL Critically high <=12.0 [facility] Comment on above: Performed By: #### U RTPCR #### [facility] [address] [address] [address] Nacho Jeffery UR PROT CREAT RAT 0.24 Normal [facility] Comment on above: Performed By: #### U RTPCR #### [facility] [address] [place] [address] Dr. Nacho Jeffery URINE CREAT 56.90 mg/dL Normal 20.00-300.00 [facility] Comment on above: Performed By: #### U RTPCR #### [facility] [address] [address] [address] Nacho Jeffery VITAMIN D 25 OHon 01-15-2023 VIT D 25-OH 52.6 ng/mL Normal [facility] Comment on above: Performed By: #### M G, URIC, RENAL #### [facility] [address] [place] [address] Dr. Nacho Jeffery VIT D RANGES SEE BELOW Normal [facility] Comment on above: Result Comment: <20 ng/mL Vit D deficient 20 - <30 ng/mL Vit D insufficient 30 - 100 ng/mL Vit D sufficient >100 ng/mL Potential Toxicity Performed By: #### M G, URIC, RENAL #### [facility] [address] [place] [address] Dr. Nacho Jeffery Telemedicineon 12-06-2022 Telemedicine [id number] Adore Dugan 1940 F Date Provider Department Center 12/06/2022 Jesus-MOE PARHAM [facility] Family History Problem Relation Age of Onset Heart attack Mother Family Status - Relation Status Age at Mother Level of Service:[address] [place] OFFICE/OUTPATIENT EST PT MAY NOT REQ PHYS/QHP Normal [facility] GLYCOHEMOGLOBIN A1Con 2021 ADA RECOMMENDATION SEE BELOW Normal [facility] Comment on above: Result Comment: ADA RECOMMENDED LIMIT 4.0 - 6.0 ADA THERAPEUTIC TARGET < 7.0 ACTION SUGGESTED > 7.0 Performed By: #### A 1C #### [facility] [address] [place] [address] Dr. Nacho Jeffery Glucose [Mass/Vol] 143 mg/dL Normal [facility] Comment on above: Performed By: #### A 1C #### [facility] [address] [address] [address] Nacho Jeffery HbA1c (Bld) [Mass fraction] 6.6 % Critically high 4.5-6.2 [facility] Comment on above: Performed By: #### A 1C #### [facility] [address] [place] [address] Dr. Nacho Jeffery LIPID PROFILEon 11-09-2022 CHOL-HDL RATIO NORM SEE BELOW Normal [facility] Comment on above: Result Comment: 3.3 - 4.4 LOW RISK 4.4 - 7.1 AVERAGE RISK 7.1 - 11.0 MODERATE RISK >11.0 HIGH RISK Performed By: #### M G, URIC, RENAL #### [facility] [address] [place] [address] Dr. Nacho Jeffery Cholesterol [Mass/Vol] 141 mg/dL Normal <=200 [facility] Comment on above: Performed By: #### M G, URIC, RENAL #### [facility] [address] [place] [address] Dr. Nacho Jeffery Cholesterol in HDL [Mass/Vol] 59 mg/dL Normal 40-60 [facility] Comment on above: Performed By: #### M G, URIC, RENAL #### [facility] [address] [place] [address] Dr. Nacho Jeffery Cholesterol in LDL [Mass/Vol] 46.2 mg/dL Normal [facility] Comment on above: Performed By: #### M G, URIC, RENAL #### [facility] [address] [place] [address] Dr. Nacho Jeffery Cholesterol.total/C holesterol in HDL [Mass ratio] 2.4 {ratio} Normal [facility] Comment on above: Performed By: #### M G, URIC, RENAL #### [facility] [address] [place] [address] Dr. Nacho Jeffery HDL NORMAL > or = 60 mg/dl - LO W CARDIOVASCULAR RISK <40 mg/dl - HIGH CARDIOVASCULAR RISK Normal [facility] Comment on above: Performed By: #### M G, URIC, RENAL #### [facility] [address] [address] [address] Nacho Jeffery LDL CALC NORMAL SEE BELOW Normal [facility] Comment on above: Result Comment: <100 mg/dl OPTIMAL 100 - 129 mg/dl NEAR OR ABOVE OPTIMAL 130 - 159 mg/dl BORDERLINE HIGH 160 - 189 mg/dl HIGH >190 mg/dl VERY HIGH Performed By: #### M G, URIC, RENAL #### [facility] [address] [place] [address] Dr. Nacho Jeffery Triglyceride [Mass/Vol] 179 mg/dL Critically high <=150 [facility] Comment on above: Performed By: #### M G, URIC, RENAL #### [facility] [address] [place] [address] Dr. Nacho Jeffery VLDL CALC 35.8 mg/dL Normal [facility] Comment on above: Performed By: #### M G, URIC, RENAL #### [facility] [address] [place] [address] Dr. Nacho Jeffery PROF 14(COMP METB)on 022 Albumin [Mass/Vol] 3.2 g/dL Critically low 3.4-5.0 [facility] e [facility] Comment on above: Performed By: #### M G, URIC, RENAL #### [facility] [address] [place] [address] Dr. Nacho Jeffery Albumin/Globulin [Mass ratio] 0.8 {ratio} Normal [facility] Comment on above: Performed By: #### M G, URIC, RENAL #### [facility] [address] [place] [address] Dr. Nacho Jeffery ALP [Catalytic activity/Vol] 109 U/L Normal 46-116 [facility] Comment on above: Performed By: #### M G, URIC, RENAL #### [facility] [address] [address] [address] Nacho Jeffery ALT [Catalytic activity/Vol] 38 U/L Normal 14-59 [facility] Comment on above: Performed By: #### M G, URIC, RENAL #### [facility] [address] [address] [address] Nacho Jeffery Anion gap [Moles/Vol] 13.7 mmol/L Normal [facility] Comment on above: Performed By: #### M G, URIC, RENAL #### [facility] [address] [place] [address] Dr. Nacho Jeffery AST [Catalytic activity/Vol] 27 U/L Normal 15-37 [facility] Comment on above: Performed By: #### M G, URIC, RENAL #### [facility] [address] [address] [address] Nacho Jeffery Bilirubin [Mass/Vol] 0.4 mg/dL Normal 0.2-1.0 [facility] Comment on above: Performed By: #### M G, URIC, RENAL #### [facility] [address] [place] [address] Dr. Nacho Jeffery Calcium [Mass/Vol] 9.2 mg/dL Normal 8.5-10.1 [facility] Comment on above: Performed By: #### M G, URIC, RENAL #### [facility] [address] [place] [address] Dr. Nacho Jeffery Chloride [Moles/Vol] 105 mmol/L Normal 98-107 [facility] Comment on above: Performed By: #### M G, URIC, RENAL #### [facility] [address] [address] [address] Nacho Jeffery CO2 [Moles/Vol] 29.5 mmol/L Normal 21.0-32.0 [facility] Comment on above: Performed By: #### M G, URIC, RENAL #### [facility] [address] [address] [address] Nacho Jeffery Creatinine [Mass/Vol] 1.62 mg/dL Critically high 0.55-1.02 [facility] Comment on above: Performed By: #### M G, URIC, RENAL #### [facility] [address] [address] [address] Nacho Jeffery EGFR-AF BRITISH 37 mL/min/1.73m2 Critically low >=60 [facility] Comment on above: Performed By: #### M G, URIC, RENAL #### [facility] [address] [place] [address] Dr. Nacho Jeffery EGFR-NON AF BRITISH 31 mL/min/1.73m2 Critically low >=60 [facility] Comment on above: Performed By: #### M G, URIC, RENAL #### [facility] [address] [place] [address] Dr. Nacho Jeffery Globulin (S) [Mass/Vol] 3.8 g/dL Normal [facility] Comment on above: Performed By: #### M G, URIC, RENAL #### [facility] [address] [place] [address] Dr. Nacho Jeffery Glucose [Mass/Vol] 102 mg/dL Normal 74-106 [facility] Comment on above: Performed By: #### M G, URIC, RENAL #### [facility] [address] [place] [address] Dr. Nacho Jeffery Potassium [Moles/Vol] 4.2 mmol/L Normal 3.5-5.1 [facility] Comment on above: Performed By: #### M G, URIC, RENAL #### [facility] [address] [place] [address] Dr. Nacho Jeffery Protein [Mass/Vol] 7.0 g/dL Normal 6.4-8.2 [facility] Comment on above: Performed By: #### M G, URIC, RENAL #### [facility] [address] [place] [address] Dr. Nacho Jeffery Sodium [Moles/Vol] 144 mmol/L Normal 136-145 [facility] Comment on above: Performed By: #### M G, URIC, RENAL #### [facility] [address] [address] [address] Nacho Jeffery Urea nitrogen [Mass/Vol] 45.0 mg/dL Critically high 7.0-18.0 [facility] Comment on above: Performed By: #### M G, URIC, RENAL #### [facility] [address] [address] [address] Nacho Jeffery Urea nitrogen/Creatinine [Mass ratio] 27.8 mg/mg Normal [facility] Comment on above: Performed By: #### M G, URIC, RENAL #### [facility] [address] [address] [address] Nacho Jeffery OSMOLALITY URINEon Osmolality, Urine 466 mOsmol/kg Normal [facility] Comment on above: Result Comment: 24 h r : 300 - 900 Random: 50 - 1400 After 12hr fluid restriction: >850 Performed By: #### M G, URIC, RENAL #### [facility] [address] [address] [address] Nacho Jeffery PTH INTACTon 07-13-2022 PTH, Intact 84 pg/mL Critically high 15-65 [facility] Comment on above: Performed By: #### P THINT #### [facility] [address] [address] [address] Nacho Jeffery VIT D 25-OH LABCORPon 2021 Vitamin D, 25-Hydroxy 34.7 ng/mL Normal 30.0-100.0 [facility] Comment on above: Result Comment: Radha min D deficiency has been defined by the [employer] and an Endocrine Society practice guideline as a level of serum 25-OH vitamin D less than 20 ng/mL (1,2). The Endocrine Society went on to further define vitamin D insufficiency as a level between 21 and 29 ng/mL (2). 1. IOM ([place] of Medicine). 2010. Dietary reference intakes for calcium and D. [place]: The National Academies Press. 2. Magdiel MF, Kb NC, Evens PEPPER, et al. Evaluation, treatment, and prevention of vitamin D deficiency: an Endocrine Society clinical practice guideline. JCEM. 2010; 96(7):1911-30. Performed By: #### M G, URIC, RENAL #### [facility] [address] [place] [address] Dr. Nacho Jeffery HEMOGRAM AND PLATELon 2021 Hematocrit (Bld) [Volume fraction] 35.5 % Critically low 36.0-48.0 [facility] Comment on above: Performed By: #### M G, URIC, RENAL #### [facility] [address] [place] [address] Dr. Nacho Jeffery Hemoglobin (Bld) [Mass/Vol] 11.5 g/dL Critically low 12.0-16.0 [facility] Comment on above: Performed By: #### M G, URIC, RENAL #### [facility] [address] [place] [address] Dr. Nacho Jeffery MCH (RBC) [Entitic mass] 30.6 pg Normal 26.7-34.0 [facility] Comment on above: Performed By: #### M G, URIC, RENAL #### [facility] [address] [place] [address] Dr. Nacoh Jeffery MCHC (RBC) [Mass/Vol] 32.4 g/dL Normal 29.9-35.2 [facility] Comment on above: Performed By: #### M G, URIC, RENAL #### [facility] [address] [place] [address] Dr. Nacho Jeffery MCV (RBC) [Entitic vol] 94.4 fL Normal 81.0-99.0 [facility] Comment on above: Performed By: #### M G, URIC, RENAL #### [facility] [address] [place] [address] Dr. Nacho Jeffery PLT 192 103/ul Normal 150-450 [facility] Comment on above: Performed By: #### M G, URIC, RENAL #### [facility] [address] [place] [address] Dr. Nacho Jeffery RBC 3.76 106/ul Critically low 4.20-5.40 [facility] Comment on above: Performed By: #### M G, URIC, RENAL #### [facility] [address] [address] [address] Nacho Jeffery WBC 6.1 103/ul Normal 4.0-11.0 [facility] Comment on above: Performed By: #### M G, URIC, RENAL #### [facility] [address] [place] [address] Dr. Nacho Jeffery MAGNESIUMon 07-12-2022 Magnesium [Mass/Vol] 1.3 mg/dL Critically low 1.8-2.4 [facility] Comment on above: Performed By: #### U CHRISTOFER, MG, RENAL #### [facility] [address] [place] [address] Dr. Nacho Jeffery RENAL FUNCTION PANELon 07-12 Albumin [Mass/Vol] 3.3 g/dL Critically low 3.4-5.0 [facility] Comment on above: Performed By: #### U CHRISTOFER, MG, RENAL #### [facility] [address] [place] [address] Dr. Nacho Jeffery Calcium [Mass/Vol] 9.1 mg/dL Normal 8.5-10.1 [facility] Comment on above: Performed By: #### U CHRISTOFER, MG, RENAL #### [facility] [address] [place] [address] Dr. Nacho Jeffery Chloride [Moles/Vol] 104 mmol/L Normal 98-107 [facility] Comment on above: Performed By: #### U CHRISTOFER, MG, RENAL #### [facility] [address] [place] [address] Dr. Nacho Jeffery CO2 [Moles/Vol] 31.7 mmol/L Normal 21.0-32.0 [facility] Comment on above: Performed By: #### U CHRISTOFER, MG, RENAL #### [facility] [address] [place] [address] Dr. Nacho Jeffery Creatinine [Mass/Vol] 1.52 mg/dL Critically high 0.55-1.02 [facility] Comment on above: Performed By: #### U CHRISTOFER, MG, RENAL #### [facility] [address] [address] [address] Nacho Jeffery EGFR-AF BRITISH 40 mL/min/1.73m2 Critically low >=60 [facility] Comment on above: Performed By: #### U CHRISTOFER, MG, RENAL #### [facility] [address] [address] [address] Nacho Jeffery EGFR-NON AF BRITISH 33 mL/min/1.73m2 Critically low >=60 [facility] Comment on above: Performed By: #### U CHRISTOFER, MG, RENAL #### [facility] [address] [address] [address] Nacho Jeffery Glucose [Mass/Vol] 221 mg/dL Critically high 74-106 [facility] Comment on above: Performed By: #### U CHRISTOFER, MG, RENAL #### [facility] [address] [address] [address] Nacho Jeffery Phosphate [Mass/Vol] 3.8 mg/dL Normal 2.6-4.7 [facility] Comment on above: Performed By: #### U CHRISTOFER, MG, RENAL #### [facility] [address] [address] [address] Nacho Jeffery Potassium [Moles/Vol] 4.1 mmol/L Normal 3.5-5.1 [facility] Comment on above: Performed By: #### U CHRISTOFER, MG, RENAL #### [facility] [address] [address] [address] Nacho Jeffery Sodium [Moles/Vol] 143 mmol/L Normal 136-145 [facility] Comment on above: Performed By: #### U CHRISTOFER, MG, RENAL #### [facility] [address] [address] [address] Nacho Jeffery Urea nitrogen [Mass/Vol] 45.0 mg/dL Critically high 7.0-18.0 [facility] Comment on above: Performed By: #### U CHRISTOFER, MG, RENAL #### [facility] [address] [address] [address] Nacho Jeffery UA RANDOM W/MICROSCOPICon BACTERIA NONE SEEN Normal NONE SEEN [facility] Comment on above: Performed By: #### M G, URIC, RENAL #### [facility] [address] [address] [address] Nacho Jeffery Bilirubin Ql (U) Negative Normal NEGATIVE [facility] Comment on above: Performed By: #### M G, URIC, RENAL #### [facility] [address] [address] [address] Nacho Jeffery CAST NONE SEEN Normal NONE SEEN [facility] Comment on above: Performed By: #### M G, URIC, RENAL #### [facility] [address] [address] [address] Nacho Jeffery Clarity (U) CLEAR Normal CLEAR [facility] Comment on above: Performed By: #### M G, URIC, RENAL #### [facility] [address] [place] [address] Dr. Nacho Jeffery Color (U) LT. YELLOW Normal YELLOW [facility] Comment on above: Performed By: #### M G, URIC, RENAL #### [facility] [address] [place] [address] Dr. Nacho Jeffery Crystals LM Nom (Urine sed) NONE SEEN Normal NONE SEEN [facility] Comment on above: Performed By: #### M G, URIC, RENAL #### [facility] [address] [place] [address] Dr. Nacho Jeffery Epithelial cells LM Ql (Urine sed) FEW Abnormal NONE SEEN /RARE [facility] Comment on above: Performed By: #### M G, URIC, RENAL #### [facility] [address] [place] [address] Dr. Nacho Jeffery Glucose Ql (U) Negative Normal NEGATIVE [facility] Comment on above: Performed By: #### M G, URIC, RENAL #### [facility] [address] [address] [address] Nacho Jeffery Hemoglobin Ql (U) Negative Normal NEGATIVE [facility] Comment on above: Performed By: #### M G, URIC, RENAL #### [facility] [address] [place] [address] Dr. Nacho Jeffery Ketones Ql (U) Negative Normal NEGATIVE [facility] Comment on above: Performed By: #### M G, URIC, RENAL #### [facility] [address] [address] [address] Nacho Jeffery LEUKOCYTES TRACE Abnormal NEGATIVE [facility] Comment on above: Performed By: #### M G, URIC, RENAL #### [facility] [address] [address] [address] Nacho Jeffery MUCOUS NONE SEEN Normal NONE SEEN [facility] Comment on above: Performed By: #### M G, URIC, RENAL #### [facility] [address] [address] [address] Nacho Jeffery Nitrite Ql (U) Negative Normal NEGATIVE [facility] Comment on above: Performed By: #### M G, URIC, RENAL #### [facility] [address] [place] [address] Dr. Nacho Jeffery pH (U) 6.0 [pH] Normal 5-9 [facility] Comment on above: Performed By: #### M G, URIC, RENAL #### [facility] [address] [place] [address] Dr. Nacho Jeffery RBC NONE SEEN Abnormal 0-2 [facility] Comment on above: Performed By: #### M G, URIC, RENAL #### [facility] [address] [place] [address] Dr. Nacho Jeffery SPEC GRAVITY 1.015 Normal 1.005-<=1.025 [facility] Comment on above: Performed By: #### M G, URIC, RENAL #### [facility] [address] [place] [address] Dr. Nacho Jeffery UA PROTEIN Negative Normal NEGATIVE/ TRACE [facility] Comment on above: Performed By: #### M G, URIC, RENAL #### [facility] [address] [address] [address] Nacho Jeffery Urobilinogen Qn (U) 0.2 {Zuleyka'U}/dL Normal 0.2 - 1. 0 [facility] Comment on above: Performed By: #### M G, URIC, RENAL #### [facility] [address] [address] [address] Nacho Jeffery WBC 2-5 Abnormal NONE SEEN [facility] Comment on above: Performed By: #### M G, URIC, RENAL #### [facility] [address] [address] [address] Nacho Jeffery URIC ACID SERUMon 07-12-2022 Urate [Mass/Vol] 7.9 mg/dL Critically high 2.6-6.0 [facility] Comment on above: Performed By: #### U CHRISTOFER, MG, RENAL #### [facility] [address] [address] [address] Nacho Jeffery URINE T PROTEIN CREAT RATIOo n 07-12-2022 Protein (U) [Mass/Vol] 17.5 mg/dL Critically high <=12.0 [facility] Comment on above: Performed By: #### M G, URIC, RENAL #### [facility] [address] [address] [address] Nacho Jeffery UR PROT CREAT RAT 0.29 Normal [facility] Comment on above: Performed By: #### M G, URIC, RENAL #### [facility] [address] [address] [address] Nacho Jeffery URINE CREAT 60.37 mg/dL Normal 20.00-300.00 [facility] Comment on above: Performed By: #### M G, URIC, RENAL #### [facility] [address] [address] [address] Nacho Jeffery ALBUMIN, RANDOM URINE W/CREA TININEon 05-11-2022 ALBUMIN, URINE 0.5 mg/dL Normal See Note: [facility] Comment on above: Result Comment: Refe rence Range: Reference Range Not established Performed By: #### 4 96, 8790, 6517, 05702 #### [facility] [address], [address] [place] [id number] [employer]: Mauricio Kern MD ALBUMIN/CREATININE RATIO, RANDOM URINE [...] Performed By: #### 4 96, 7600, 6517, 74011 #### [facility] [address], [address] [place] [address] [employer]: Mauricio Kern MD Creatinine (U) [Mass/Vol] 74 mg/dL Normal 20-275 [facility] Comment on above: Performed By: #### 4 96, 7600, 6517, 90565 #### [facility] [address], [address] [place] [address] [employer]: Mauricio Kern MD BASIC METABOLIC PANELon 04-14 GLUCOSE Normal [facility] Comment on above: Result Comment: TEST NOT PERFORMED No specimen received. Performed By: #### 4 96, 7600, 6517, 56416 #### [facility] [address], [address] [place] [address] [employer]: Mauricio Kern MD HEMOGLOBIN A1con 05-11-2022 HEMOGLOBIN A1c Normal [facility] Comment on above: Result Comment: TEST NOT PERFORMED No specimen received. Performed By: #### 4 96, 7600, 6517, 10755 #### [facility] [address], [address] [place] [address] [employer]: Mauricio Kern MD LIPID PANEL, STANDARDon 04-14 CHOL/HDLC RATIO Normal [facility] Comment on above: Result Comment: TEST NOT PERFORMED No specimen received. Performed By: #### 4 96, 7600, 6517, 41146 #### [facility] [address], [address] [place] [address] [employer]: Mauricio Kern MD CHOLESTEROL, TOTAL Normal [facility] Comment on above: Result Comment: TEST NOT PERFORMED No specimen received. Performed By: #### 4 96, 7600, 6517, 72955 #### [facility] [address], [address] [place] [address] [employer]: Mauricio Kern MD HDL CHOLESTEROL Normal [facility] Comment on above: Result Comment: TEST NOT PERFORMED No specimen received. Performed By: #### 4 96, 7600, 6517, 86716 #### [facility] [address], [address] [place] [address] [employer]: Mauricio Kern MD LDL-CHOLESTEROL Normal [facility] Comment on above: Result Comment: TEST NOT PERFORMED No specimen received. Performed By: #### 4 96, 7600, 6517, 41401 #### [facility] [address], [address] [place] [address] [employer]: Mauricio Kern MD NON HDL CHOLESTEROL Normal [facility] Comment on above: Result Comment: TEST NOT PERFORMED No specimen received. Performed By: #### 4 96, 7600, 6517, 57509 #### [facility] [address], [address] [place] [address] [employer]: Mauricio Kern MD TRIGLYCERIDES Normal [facility] Comment on above: Result Comment: TEST NOT PERFORMED No specimen received. Performed By: #### 4 96, 7600, 6517, 74562 #### [facility] [address] [address] [employer]: Mauricio Kern MD BASIC METABOLIC PANEL -2 Calcium [Mass/Vol] 9.1 mg/dL Normal 8.6-10.4 [facility] Comment on above: Performed By: #### 1 0165, 496, 7600 #### [facility] [address], [address] [place] [address] [employer]: Mauricio Kern MD Chloride [Moles/Vol] 105 mmol/L Normal 98-110 [facility] Comment on above: Performed By: #### 1 0165, 496, 7600 #### [facility] [address], [address] [place] [address] [employer]: Mauricio Kern MD CO2 [Moles/Vol] 25 mmol/L Normal 20-32 [facility] Comment on above: Performed By: #### 1 0165, 496, 7600 #### [facility] [address] [address] [employer]: Mauricio Kern MD Creatinine [Mass/Vol] 1.73 mg/dL High 0.60-0.93 [facility] Comment on above: Result Comment: For patients >49 years of age, the reference limit for Creatinine is approximately 13% higher for people identified as -St [place]ian. Performed By: #### 1 0165, 496, 7600 #### [facility] [address] [address] [employer]: Mauricio Kern MD eGFR NON-AFR. BRITISH 28 mL/min/1.73m2 Low > OR = 60 [facility] Comment on above: Performed By: #### 1 0165, 496, 7600 #### [facility] [address] [address] [employer]: Mauricio Kern MD GFR/1.73 sq M.predicted among blacks MDRD (S/P/Bld) [Vol rate/Area] 32 mL/min/{1.73_m2} Low > OR = 60 [facility] Comment on above: Performed By: #### 1 0165, 496, 7600 #### [facility] [address] [address] [employer]: Mauricio Kern MD Glucose [Mass/Vol] 137 mg/dL High 65-99 [facility] Comment on above: Result Comment: Fasting reference interval For someone without known diabetes, a glucose value >125 mg/dL indicates that they may have diabetes and this should be confirmed with a follow-up test. Performed By: #### 1 0165, 496, 7600 #### [facility] [address] [address] [employer]: Mauricio Kern MD Potassium [Moles/Vol] 4.6 mmol/L Normal 3.5-5.3 [facility] Comment on above: Performed By: #### 1 0165, 496, 7600 #### [facility] [address], [address] [place] [address] [employer]: Mauricio Kern MD Sodium [Moles/Vol] 142 mmol/L Normal 135-146 [facility] Comment on above: Performed By: #### 1 0165, 496, 7600 #### [facility] [address], [address] [place] [address] [employer]: Mauricio Kern MD Urea nitrogen [Mass/Vol] 65 mg/dL High 7-25 [facility] Comment on above: Performed By: #### 1 0165, 496, 7600 #### [facility] [address], [address] [place] [address] [employer]: Mauricio Kern MD Urea nitrogen/Creatinine [Mass ratio] 38 mg/mg High 6-22 [facility] Comment on above: Performed By: #### 1 0165, 496, 7600 #### [facility] [address], [address] [place] [address] [employer]: Mauricio Kern MD HEMOGLOBIN A1con 05-04-2022 HEMOGLOBIN [...] 1 0165, 496, 7600 #### [facility] [address], [address] [place] [address] [employer]: Mauricio Kern MD LIPID PANEL, STANDARDon 06- Cholesterol [Mass/Vol] 163 mg/dL Normal <200 [facility] Comment on above: Order Comment: FASTI NG:YES PATIENT UNABLE TO VOID; ADVISED TO RETURN FOR COLLECTION. FASTING: YES Performed By: #### 1 0165, 496, 7600 #### [facility] [address], [address] [place] [address] [employer]: Mauricio Kern MD Cholesterol in HDL [Mass/Vol] 51 mg/dL Normal > OR = 50 [facility] Comment on above: Order Comment: FASTI NG:YES PATIENT UNABLE TO VOID; ADVISED TO RETURN FOR COLLECTION. FASTING: YES Performed By: #### 1 0165, 496, 7600 #### [facility] [address], [address] [place] [address] [employer]: Mauricio Kern MD Cholesterol in LDL [Mass/Vol] [...] LDL-C. Sean SS et al. SHRUTHI. 2013;310(19): 8057-7150 (http://education.[employer]/faq/GFH665) Performed By: #### 1 0165, 496, 2720 #### [facility] [address], [address] [place] [address] [employer]: Mauricio Kern MD Cholesterol.total/C holesterol in HDL [Mass ratio] 3.2 {ratio} Normal <5.0 [facility] Comment on above: Order Comment: FASTI NG:YES PATIENT UNABLE TO VOID; ADVISED TO RETURN FOR COLLECTION. FASTING: YES Performed By: #### 1 0165, 496, 7600 #### [facility] [address], [address] [place] [address] [employer]: Mauricio Kern MD NON HDL CHOLESTEROL 112 [...] 1 0165, 496, 7600 #### [facility] [address], [address] [place] [address] [employer]: Mauricio Kern MD Triglyceride [Mass/Vol] 181 mg/dL High <150 [facility] Comment on above: Order Comment: FASTI NG:YES PATIENT UNABLE TO VOID; ADVISED TO RETURN FOR COLLECTION. FASTING: YES Performed By: #### 1 0165, 496, 7810 #### [facility] [address], [address] [place] [address] [employer]: Mauricio Kern MD PTH INTACTon 03-31-2022 PTH, Intact 111 pg/mL Critically high 15-65 [facility] Comment on above: Performed By: #### M Jamarcus, URIC, RENAL #### [facility] [address] [address] [address] Nacho Jeffery FERRITINon 03-30-2022 Ferritin [Mass/Vol] 479.0 ng/mL Critically high 8.0-252.0 [facility] Comment on above: Performed By: #### M G, URIC, RENAL #### [facility] [address] [address] [address] Nacho Jeffery HEMOGRAM AND PLATELon 2021 Hematocrit (Bld) [Volume fraction] 38.1 % Normal 36.0-48.0 [facility] Comment on above: Performed By: #### M G, URIC, RENAL #### [facility] [address] [address] [address] Nacho Jeffery Hemoglobin (Bld) [Mass/Vol] 12.9 g/dL Normal 12.0-16.0 [facility] Comment on above: Performed By: #### M G, URIC, RENAL #### [facility] [address] [address] [address] Nacho Jeffery MCH (RBC) [Entitic mass] 32.8 pg Normal 26.7-34.0 [facility] Comment on above: Performed By: #### M G, URIC, RENAL #### [facility] [address] [place] [address] Dr. Nacho Jeffery MCHC (RBC) [Mass/Vol] 33.9 g/dL Normal 29.9-35.2 [facility] Comment on above: Performed By: #### M G, URIC, RENAL #### [facility] [address] [address] [address] Nacho Jeffery MCV (RBC) [Entitic vol] 96.9 fL Normal 81.0-99.0 [facility] Comment on above: Performed By: #### M G, URIC, RENAL #### [facility] [address] [place] [address] Dr. Nacho Jeffery PLT 191 103/ul Normal 150-450 [facility] Comment on above: Performed By: #### M G, URIC, RENAL #### [facility] [address] [place] [address] Dr. Nacho Jeffery RBC 3.93 106/ul Critically low 4.20-5.40 [facility] Comment on above: Performed By: #### M G, URIC, RENAL #### [facility] [address] [address] [address] Nacho Jeffery WBC 7.2 103/ul Normal 4.0-11.0 [facility] Comment on above: Performed By: #### M G, URIC, RENAL #### [facility] [address] [place] [address] Dr. Nacho Jeffery IRON AND TIBCon 03-30-2022 % SATURATION 21.6 % Normal [facility] Comment on above: Performed By: #### M G, URIC, RENAL #### [facility] [address] [place] [address] Dr. Nacho Jeffery Iron [Mass/Vol] 63.0 ug/dL Normal 50.0-170.0 [facility] Comment on above: Performed By: #### M G, URIC, RENAL #### [facility] [address] [address] [address] Nacho Jeffery TIBC DIRECT 292.0 ug/dL Normal 250.0-450.0 [facility] Comment on above: Performed By: #### M G, URIC, RENAL #### [facility] [address] [address] [address] Nacho Jeffery MAGNESIUMon 03-30-2022 Magnesium [Mass/Vol] 1.7 mg/dL Critically low 1.8-2.4 [facility] Comment on above: Performed By: #### M G, URIC, RENAL #### [facility] [address] [address] [address] Nacho Jeffery RENAL FUNCTION PANELon 03-30 Albumin [Mass/Vol] 3.4 g/dL Normal 3.4-5.0 [facility] Comment on above: Performed By: #### M G, URIC, RENAL #### [facility] [address] [address] [address] Nacho Jeffery Calcium [Mass/Vol] 9.3 mg/dL Normal 8.5-10.1 [facility] Comment on above: Performed By: #### M G, URIC, RENAL #### [facility] [address] [address] [address] Nacho Jeffery Chloride [Moles/Vol] 102 mmol/L Normal 98-107 [facility] Comment on above: Performed By: #### M G, URIC, RENAL #### [facility] [address] [address] [address] Nacho Jeffery CO2 [Moles/Vol] 31.7 mmol/L Normal 21.0-32.0 [facility] Comment on above: Performed By: #### M G, URIC, RENAL #### [facility] [address] [address] [address] Nacho Jeffery Creatinine [Mass/Vol] 2.05 mg/dL Critically high 0.55-1.02 [facility] Comment on above: Performed By: #### M G, URIC, RENAL #### [facility] [address] [address] [address] Nacho Jeffery EGFR-AF BRITISH 28 mL/min/1.73m2 Critically low >=60 [facility] Comment on above: Performed By: #### M G, URIC, RENAL #### [facility] [address] [place] [address] Dr. Nacho Jeffery EGFR-NON AF BRITISH 23 mL/min/1.73m2 Critically low >=60 [facility] Comment on above: Performed By: #### M G, URIC, RENAL #### [facility] [address] [place] [address] Dr. Nacho Jeffery Glucose [Mass/Vol] 194 mg/dL Critically high 74-106 [facility] Comment on above: Performed By: #### M G, URIC, RENAL #### [facility] [address] [place] [address] Dr. Nacho Jeffery Phosphate [Mass/Vol] 3.2 mg/dL Normal 2.6-4.7 [facility] Comment on above: Performed By: #### M G, URIC, RENAL #### [facility] [address] [place] [address] Dr. Nacho Jeffery Potassium [Moles/Vol] 4.6 mmol/L Normal 3.5-5.1 [facility] Comment on above: Performed By: #### M G, URIC, RENAL #### [facility] [address] [place] [address] Dr. Nacho Jeffery Sodium [Moles/Vol] 141 mmol/L Normal 136-145 [facility] Comment on above: Performed By: #### M G, URIC, RENAL #### [facility] [address] [place] [address] Dr. Nacho Jeffery Urea nitrogen [Mass/Vol] 64.0 mg/dL Critically high 7.0-18.0 [facility] Comment on above: Performed By: #### M G, URIC, RENAL #### [facility] [address] [place] [address] Dr. Nacho Jeffery UA RANDOM W/MICROSCOPICon 05 -19-2022 BACTERIA NONE SEEN Normal NONE SEEN [facility] Comment on above: Performed By: #### M G, URIC, RENAL #### [facility] [address] [place] [address] Dr. Nacho Jeffery Bilirubin Ql (U) Negative Normal NEGATIVE [facility] Comment on above: Performed By: #### M G, URIC, RENAL #### [facility] [address] [place] [address] Dr. Nacho Jeffery CAST NONE SEEN Normal NONE SEEN [facility] Comment on above: Performed By: #### M G, URIC, RENAL #### [facility] [address] [place] [address] Dr. Nacho Jeffery Clarity (U) CLEAR Normal CLEAR [facility] Comment on above: Performed By: #### M G, URIC, RENAL #### [facility] [address] [place] [address] Dr. Nacho Jeffery Color (U) LT. YELLOW Normal YELLOW [facility] Comment on above: Performed By: #### M G, URIC, RENAL #### [facility] [address] [place] [address] Dr. Nacho Jeffery Crystals LM Nom (Urine sed) NONE SEEN Normal NONE SEEN [facility] Comment on above: Performed By: #### M G, URIC, RENAL #### [facility] [address] [place] [address] Dr. Nacho Jeffery Epithelial cells LM Ql (Urine sed) FEW Abnormal NONE SEEN /RARE [facility] Comment on above: Performed By: #### M G, URIC, RENAL #### [facility] [address] [place] [address] Dr. Nacho Jeffery Glucose Ql (U) Negative Normal NEGATIVE [facility] Comment on above: Performed By: #### M G, URIC, RENAL #### [facility] [address] [place] [address] Dr. Nacho Jeffery Hemoglobin Ql (U) Negative Normal NEGATIVE [facility] Comment on above: Performed By: #### M G, URIC, RENAL #### [facility] [address] [place], [place] [id number] Dr. Nacho Jeffery Ketones Ql (U) Negative Normal NEGATIVE [facility] Comment on above: Performed By: #### M G, URIC, RENAL #### [facility] [address] [address] [address] Nacho Jeffery LEUKOCYTES SMALL Abnormal NEGATIVE [facility] Comment on above: Performed By: #### M G, URIC, RENAL #### [facility] [address] [address] [address] Nacho Jeffery MUCOUS NONE SEEN Normal NONE SEEN [facility] Comment on above: Performed By: #### M G, URIC, RENAL #### [facility] [address] [address] [address] Nacho Jeffery Nitrite Ql (U) Negative Normal NEGATIVE [facility] Comment on above: Performed By: #### M G, URIC, RENAL #### [facility] [address] [place] [address] Dr. Nacho Jeffery pH (U) 5.5 [pH] Normal 5-9 [facility] Comment on above: Performed By: #### M G, URIC, RENAL #### [facility] [address] [address] [address] Nacho Jeffery RBC 0-2 Normal 0-2 [facility] Comment on above: Performed By: #### M G, URIC, RENAL #### [facility] [address] [place] [address] Dr. Nacho Jeffery SPEC GRAVITY 1.015 Normal 1.005-<=1.025 [facility] Comment on above: Performed By: #### M G, URIC, RENAL #### [facility] [address] [address] [address] Nacho Jeffery UA PROTEIN Negative Normal NEGATIVE/ TRACE [facility] Comment on above: Performed By: #### M G, URIC, RENAL #### [facility] [address] [place] [address] Dr. aNcho Jeffery Urobilinogen Qn (U) 0.2 {Zuleyka'U}/dL Normal 0.2 - 1. 0 [facility] Comment on above: Performed By: #### M G, URIC, RENAL #### [facility] [address] [place] [address] Dr. Nacho Jeffery WBC 5-10 Abnormal NONE SEEN [facility] Comment on above: Performed By: #### M G, URIC, RENAL #### [facility] [address] [place] [address] Dr. Nacho Jeffery URIC ACID SERUMon 03-30-2022 Urate [Mass/Vol] 7.0 mg/dL Critically high 2.6-6.0 [facility] Comment on above: Performed By: #### M G, URIC, RENAL #### [facility] [address] [place] [address] Dr. Nacho Jeffery URINE T PROTEIN CREAT RATIOo n 03-30-2022 Protein (U) [Mass/Vol] 7.1 mg/dL Normal <=12.0 [facility] Comment on above: Performed By: #### U RTPCR #### [facility] [address] [place] [address] Dr. Nacho Jeffery UR PROT CREAT RAT 0.06 Normal [facility] Comment on above: Performed By: #### U RTPCR #### [facility] [address] [place] [address] Dr. Nacho Jeffery URINE CREAT 113.23 mg/dL Normal 20.00-300.00 [facility] Comment on above: Performed By: #### U RTPCR #### [facility] [address] [place] [address] Dr. Nacho Jeffery VITAMIN D 25 OHon 03-30-2022 VIT D 25-OH 57.4 ng/mL Normal [facility] Comment on above: Performed By: #### M G, URIC, RENAL #### [facility] [address] [place] [address] Dr. Nacho Jeffery VIT D RANGES SEE BELOW Normal [facility] Comment on above: Result Comment: <20 ng/mL Vit D deficient 20 - <30 ng/mL Vit D insufficient 30 - 100 ng/mL Vit D sufficient >100 ng/mL Potential Toxicity Performed By: #### M G, URIC, RENAL #### [facility] [address] [address] [address] Nacho Jeffery [facility] 08-30-2021 Albumin [Mass/Vol] 3.7 g/dL Normal 3.6-5.1 [facility] Comment on above: Performed By: #### 1 0231, 7600 #### [facility] of [address], [address] [place] [address] [employer]: Mauricio Kern MD Albumin/Globulin [Mass ratio] 1.4 {ratio} Normal 1.0-2.5 [facility] Comment on above: Performed By: #### 1 0231, 7600 #### [facility] [place] [address] [employer]: Mauricio Kern MD ALP [Catalytic activity/Vol] 98 U/L Normal 37-153 [facility] Comment on above: Performed By: #### 1 0231, 7600 #### [facility] [place] [address] [employer]: Mauricio Kern MD ALT [Catalytic activity/Vol] 23 U/L Normal 6-29 [facility] Comment on above: Performed By: #### 1 0231, 7600 #### [facility] [place] [address] [employer]: Mauricio Kern MD AST [Catalytic activity/Vol] 22 U/L Normal 10-35 [facility] Comment on above: Performed By: #### 1 0231, 7600 #### [facility] of [place] [address] [employer]: Mauricio Kern MD Bilirubin [Mass/Vol] 0.4 mg/dL Normal 0.2-1.2 [facility] Comment on above: Performed By: #### 1 0231, 7600 #### [facility] [place] [address] [employer]: Mauricio Kern MD Calcium [Mass/Vol] 9.2 mg/dL Normal 8.6-10.4 [facility] Comment on above: Performed By: #### 1 023, 7600 #### [facility] [place] [address] [employer]: Mauricio Kern MD Chloride [Moles/Vol] 103 mmol/L Normal 98-110 [facility] Comment on above: Performed By: #### 1 023, 7600 #### [facility] [address], [address] [place] [address] [employer]: Mauricio Kern MD CO2 [Moles/Vol] 28 mmol/L Normal 20-32 [facility] Comment on above: Performed By: #### 1 023, 7600 #### [facility] [place] [address] [employer]: Mauricio Kern MD Creatinine [Mass/Vol] 2.22 mg/dL High 0.60-0.93 [facility] Comment on above: Result Comment: For patients >49 years of age, the reference limit for Creatinine is approximately 13% higher for people identified as -St Helenian. Performed By: #### 1 023, 7600 #### [facility] [place] [address] [employer]: Mauricio Kern MD eGFR NON-AFR. BRITISH 21 mL/min/1.73m2 Low > OR = 60 [facility] Comment on above: Performed By: #### 1 023, 7600 #### [facility] [place] [address] [employer]: Mauricio Kern MD GFR/1.73 sq M.predicted among blacks MDRD (S/P/Bld) [Vol rate/Area] 24 mL/min/{1.73_m2} Low > OR = 60 [facility] Comment on above: Performed By: #### 1 023, 7600 #### [facility] of [place] [address] [employer]: Mauricio Kern MD Globulin (S) [Mass/Vol] 2.7 g/dL Normal 1.9-3.7 [facility] Comment on above: Performed By: #### 1 023, 7600 #### [facility] [place] [address] [employer]: Mauricio Kern MD Glucose [Mass/Vol] 107 mg/dL High 65-99 [facility] Comment on above: Result Comment: Fasting reference interval For someone without known diabetes, a glucose value between 100 and 125 mg/dL is consistent with prediabetes and should be confirmed with a follow-up test. Performed By: #### 1 023, 7600 #### [facility] [place] [address] [employer]: Mauricio Kern MD Potassium [Moles/Vol] 4.7 mmol/L Normal 3.5-5.3 [facility] Comment on above: Performed By: #### 1 230, 7600 #### [facility] [place] [address] [employer]: Mauricio Kern MD Protein [Mass/Vol] 6.4 g/dL Normal 6.1-8.1 [facility] Comment on above: Performed By: #### 1 023, 7600 #### [facility] [place] [address] [employer]: Mauricio Kern MD Sodium [Moles/Vol] 141 mmol/L Normal 135-146 [facility] Comment on above: Performed By: #### 1 023, 7600 #### [facility] [place] [address] [employer]: Mauricio Kern MD Urea nitrogen [Mass/Vol] 69 mg/dL High 7-25 [facility] Comment on above: Performed By: #### 1 023, 7600 #### [facility] [place] [address] [employer]: Mauricio Kern MD Urea nitrogen/Creatinine [Mass ratio] 31 mg/mg High 6-22 [facility] Comment on above: Performed By: #### 1 023, 0 #### [facility] [address], [address] [place] [address] [employer]: Mauricio Kern MD LIPID PANEL, [address] Cholesterol [Mass/Vol] 142 mg/dL Normal <200 [facility] Comment on above: Order Comment: FASTI NG:YES FASTING: YES Performed By: #### 1 023, 7600 #### [facility] [address], [address] [place] [address] [employer]: Mauricio Kern MD Cholesterol in HDL [Mass/Vol] 47 mg/dL Low > OR = 50 [facility] Comment on above: Order Comment: FASTI NG:YES FASTING: YES Performed By: #### 1 023, 7600 #### [facility] [address], [address] [place] [address] [employer]: Mauricio Kern MD Cholesterol in LDL [Mass/Vol] [...] LDL-C. Sean BREAUX et al. SHRUTHI. 2013;310(19): 0243-3335 (http://[email or web address]format[employer]/faq/ZSX397) Performed By: #### 1 023, 0 #### [facility] [address], [address] [place] [address] [employer]: Mauricio Kern MD Cholesterol.total/C holesterol in HDL [Mass ratio] 3.0 {ratio} Normal <5.0 [facility] Comment on above: Order Comment: FASTI NG:YES FASTING: YES Performed By: #### 1 023, 7600 #### [facility] [address], [address] [place] [address] [employer]: Mauricio Kern MD NON HDL CHOLESTEROL 95 mg/dL (calc) Normal <130 [facility] Comment on above: Order Comment: FASTI NG:YES FASTING: YES Result Comment: For patients with diabetes plus 1 major ASCVD risk factor, treating to a non-HDL-C goal of <100 mg/dL (LDL-C of <70 mg/dL) is considered a therapeutic option. Performed By: #### 1 230, 0 #### [facility] [address], [address] [place] [address] [employer]: Mauricio Kern MD Triglyceride [Mass/Vol] 188 mg/dL High <150 [facility] Comment on above: Order Comment: FASTI NG:YES FASTING: YES Performed By: #### 1 230, 0 #### [facility] [address], [address] [place] [address] [employer]: Mauricio Kern MD BASIC METABOLIC PANELon - Calcium [Mass/Vol] 10.0 mg/dL Normal 8.6-10.3 [facility] Comment on above: Performed By: #### 0 0071 #### [facility] [address] [place] [address], [facility] Chloride [Moles/Vol] 101 mmol/L Normal 98-107 [facility] Comment on above: Performed By: #### 0 0071 #### [facility] [address] [place] [address], [facility] CO2 [Moles/Vol] 28 mmol/L Normal 21-31 [facility] Comment on above: Performed By: #### 0 0071 #### [facility] [address] [place] [address], [facility] Creatinine [Mass/Vol] 1.96 mg/dL High 0.60-1.20 [facility] Comment on above: Performed By: #### 0 0071 #### [facility] [address] [place] [address], [facility] eGFR- 30 ml/min/1.73sq m Abnormal >60 [facility] Comment on above: Result Comment: Calc ulation may not be valid for patients over 70 years Performed By: #### 0 0071 #### [facility] [address] [place] [address], [facility] eGFR- non- 24 ml/min/1.73sq m Abnormal >60 [facility] Comment on above: Result Comment: Calc ulation may not be valid for patients over 70 years Performed By: #### 0 0071 #### [facility] [address] [place] [address], [facility] Glucose [Mass/Vol] 171 mg/dL High 70-100 [facility] Comment on above: Performed By: #### 0 0071 #### [facility] [address] [place] [address], [facility] Potassium [Moles/Vol] 3.9 mmol/L Normal 3.5-5.1 [facility] Comment on above: Performed By: #### 0 0071 #### [facility] [address] [place] [address], [place] Sodium [Moles/Vol] 139 mmol/L Normal 136-145 [facility] Comment on above: Performed By: #### 0 0071 #### [facility] [address] [place] [address], [place] Urea nitrogen [Mass/Vol] 66 mg/dL High 7-25 [facility] Comment on above: Performed By: #### 0 0071 #### [facility] [address] [place] [address], [facility] Cardiovascular Lab Reporton 03-30-2021 Cardiovascular Lab Report [facility] Patient Name: Adore Dugan [facility] MR #: [id number] Physician: Moe Parham, Department of M.D. Medicine Service Date: 03/30/2021 Division of Birthdate: 1940 Cardiology Room #: [facility] [place] [address] [address] [address] Cardiovascular Laboratory Report FINAL IMPRESSIONS: 1. Moderate [...] enzyme inhibitor/receptor micki. 4. Follow up with [facility] Cardiology in the next 2 to 3 [...] the left radial artery was obtained. A 6-Martiniquais glide sheath was inserted without difficulty. Bilateral selective coronary angiography was performed using JL4 and a 4-Martiniquais 3DRC catheter. After reviewing the images and [...] P/Moe Parham M.D. Date Trans: 03/30/2021 03:19 P/omlly [id number] cc: Fernie Hackett M.D. [address], [address] [place] [id number] [facility] Vital Signs Date Time Vital Sign Value Performing Clinician Facility 11-04-2024 09:42-0500 Body height 165.1 cm Pfo 1 [facility] 11-04-2024 09:42-0500 Body mass index (BMI) [Ratio] 45.26 kg/m2 Pfo 1 [facility] 11-04-2024 09:42-0500 Body temperature 97.5 [degF] Pfo 1 [facility] 11-04-2024 09:42-0500 Body weight 123.38 kg Pfo 1 [facility] 11-04-2024 09:42-0500 Diastolic blood pressure 65 mm[Hg] Pfo 1 [facility] 11-04-2024 09:42-0500 Heart rate 65 /min Pfo 1 [facility] 11-04-2024 09:42-0500 Respiratory rate 18 /min Pfo 1 [facility] 11-04-2024 09:42-0500 SaO2% (BldA) [Mass fraction] 98 % Pfo 1 [facility] 11-04-2024 09:42-0500 Systolic blood pressure 153 mm[Hg] Pfo 1 [facility] 10-07-2024 09:29-0500 Body height 165.1 cm Pfo 2 [facility] 10-07-2024 09:29-0500 Body mass index (BMI) [Ratio] 45.26 kg/m2 Pfo 2 [facility] 10-07-2024 09:29-0500 Body temperature 97.59 [degF] Pfo 2 [facility] 10-07-2024 09:29-0500 Body weight 123.38 kg Pfo 2 [facility] 10-07-2024 09:29-0500 Diastolic blood pressure 63 mm[Hg] Pfo 2 [facility] 10-07-2024 09:29-0500 Heart rate 72 /min Pfo 2 [facility] 10-07-2024 09:29-0500 Respiratory rate 18 /min Pfo 2 [facility] 10-07-2024 09:29-0500 SaO2% (BldA) [Mass fraction] 94 % Pfo 2 [facility] 10-07-2024 09:29-0500 Systolic blood pressure 155 mm[Hg] Pfo 2 [facility] 10-01-2024 09:24-0500 Body height 165.1 cm Pfo 5 [facility] 10-01-2024 09:24-0500 Body mass index (BMI) [Ratio] 45.26 kg/m2 Pfo 5 [facility] 10-01-2024 09:24-0500 Body temperature 97.39 [degF] Pfo 5 [facility] 10-01-2024 09:24-0500 Body weight 123.38 kg Pfo 5 [facility] 10-01-2024 09:24-0500 Diastolic blood pressure 56 mm[Hg] Pfo 5 [facility] 10-01-2024 09:24-0500 Heart rate 76 /min Pfo 5 [facility] 10-01-2024 09:24-0500 Respiratory rate 16 /min Pfo 5 [facility] 10-01-2024 09:24-0500 SaO2% (BldA) [Mass fraction] 96 % Pfo 5 [facility] 10-01-2024 09:24-0500 Systolic blood pressure 153 mm[Hg] Pfo 5 [facility] 09-10-2024 09:21-0400 Body temperature 97.7 [degF] Pfo 5 [facility] 09-10-2024 09:21-0400 Diastolic blood pressure 61 mm[Hg] Pfo 5 [facility] 09-10-2024 09:21-0400 Heart rate 68 /min Pfo 5 [facility] 09-10-2024 09:21-0400 Respiratory rate 18 /min Pfo 5 [facility] 09-10-2024 09:21-0400 SaO2% (BldA) [Mass fraction] 99 % Pfo 5 [facility] 09-10-2024 09:21-0400 Systolic blood pressure 164 mm[Hg] Pfo 5 [facility] 08-27-2024 09:270400 Body height 165.1 cm Pfo 5 [facility] 08-27-2024 09:27-0400 Body mass index (BMI) [Ratio] 46.1 kg/m2 Pfo 5 [facility] 08-27-2024 09:27-0400 Body temperature 97.39 [degF] Pfo 5 [facility] 08-27-2024 09:27-0400 Body weight 125.65 kg Pfo 5 [facility] 08-27-2024 09:27-0400 Diastolic blood pressure 86 mm[Hg] Pfo 5 [facility] 08-27-2024 09:27-0400 Heart rate 75 /min Pfo 5 [facility] 08-27-2024 09:27-0400 Respiratory rate 16 /min Pfo 5 [facility] 08-27-2024 09:27-0400 SaO2% (BldA) [Mass fraction] 98 % Pfo 5 [facility] 08-27-2024 09:270400 Systolic blood pressure 151 mm[Hg] Pfo 5 [facility] 08-20-2024 09:170400 Body height 165.1 cm Pfo 5 [facility] 08-20-2024 09:17-0400 Body mass index (BMI) [Ratio] 46.1 kg/m2 Pfo 5 [facility] 08-20-2024 09:17-0400 Body temperature 97.59 [degF] Pfo 5 [facility] 08-20-2024 09:17-0400 Body weight 125.65 kg Pfo 5 [facility] 08-20-2024 09:17-0400 Diastolic blood pressure 67 mm[Hg] Pfo 5 [facility] 08-20-2024 09:17-0400 Heart rate 66 /min Pfo 5 [facility] 08-20-2024 09:17-0400 Respiratory rate 16 /min Pfo 5 [facility] 08-20-2024 09:17-0400 SaO2% (BldA) [Mass fraction] 99 % Pfo 5 [facility] 08-20-2024 09:17-0400 Systolic blood pressure 167 mm[Hg] Pfo 5 [facility] 08-13-2024 09:20-0400 Body height 165.1 cm Pfo 4 [facility] 08-13-2024 09:20-0400 Body mass index (BMI) [Ratio] 46.1 kg/m2 Pfo 4 [facility] 08-13-2024 09:20-0400 Body temperature 97.59 [degF] Pfo 4 [facility] 08-13-2024 09:20-0400 Body weight 125.65 kg Pfo 4 [facility] 08-13-2024 09:20-0400 Diastolic blood pressure 65 mm[Hg] Pfo 4 [facility] 08-13-2024 09:20-0400 Heart rate 70 /min Pfo 4 [facility] 08-13-2024 09:20-0400 Respiratory rate 16 /min Pfo 4 [facility] 08-13-2024 09:20-0400 SaO2% (BldA) [Mass fraction] 96 % Pfo 4 [facility] 08-13-2024 09:20-0400 Systolic blood pressure 169 mm[Hg] Pfo 4 [facility] 05-01-2024 13:52-0400 Body height 165.1 cm [facility] 05-01-2024 13:52-0400 Body mass index (BMI) [Ratio] 47.5 kg/m2 [facility] 05-01-2024 13:52-0400 Body temperature 96.7 [degF] [facility] 05-01-2024 13:52-0400 Body weight 129.38 kg [facility] 05-01-2024 13:52-0400 Diastolic blood pressure 60 mm[Hg] [facility] 05-01-2024 13:52-0400 Heart rate 76 /min [facility] 05-01-2024 13:52-0400 Respiratory rate 18 /min [facility] 05-01-2024 13:52-0400 SaO2% (BldA) [Mass fraction] 95 % [facility] 05-01-2024 13:52-0400 Systolic blood pressure 130 mm[Hg] [facility] 02-25-2024 14:54-0400 Body height 165.1 cm Guanxi.meng DO Work Phone: [facility] 02-25-2024 14:54-0400 Body mass index (BMI) [Ratio] 44.56 kg/m2 Fernie Furlong DO Work Phone: [facility] 02-25-2024 14:54-0400 Body temperature 98.29 [degF] [employer] DO Work Phone: [facility] 02-25-2024 14:54-0400 Body weight 121.47 kg Fernie Lesara [employer]long DO Work Phone: [facility] 02-25-2024 14:54-0400 Diastolic blood pressure 70 mm[Hg] Fernie Lesara [employer]long DO Work Phone: [facility] 02-25-2024 14:54-0400 Heart rate 60 /min Fernie GBookingng DO Work Phone: [facility] 02-25-2024 14:54-0400 SaO2% (BldA) [Mass fraction] 95 % Fernie Mascorrong DO Work Phone: [facility] 02-25-2024 14:54-0400 Systolic blood pressure 140 mm[Hg] Fernie Hackett DO Work Phone: [facility] 02-13-2024 09:26-0400 Body height 165.1 cm Pfo 6 [facility] 02-13-2024 09:26-0400 Body mass index (BMI) [Ratio] 44.6 kg/m2 Pfo 6 [facility] 02-13-2024 09:26-0400 Body temperature 97.7 [degF] Pfo 6 [facility] 02-13-2024 09:26-0400 Body weight 121.56 kg Pfo 6 [facility] 02-13-2024 09:26-0400 Diastolic blood pressure 60 mm[Hg] Pfo 6 [facility] 02-13-2024 09:26-0400 Heart rate 60 /min Pfo 6 [facility] 02-13-2024 09:26-0400 Respiratory rate 18 /min Pfo 6 [facility] 02-13-2024 09:26-0400 SaO2% (BldA) [Mass fraction] 94 % Pfo 6 [facility] 02-13-2024 09:26-0400 Systolic blood pressure 162 mm[Hg] Pfo 6 [facility] 02-06-2024 09:30-0400 Body height 165.1 cm Pfo 6 [facility] 02-06-2024 09:30-0400 Body mass index (BMI) [Ratio] 44.6 kg/m2 Pfo 6 [facility] 02-06-2024 09:30-0400 Body temperature 97.9 [degF] Pfo 6 [facility] 02-06-2024 09:30-0400 Body weight 121.56 kg Pfo 6 [facility] 02-06-2024 09:30-0400 Diastolic blood pressure 75 mm[Hg] Pfo 6 [facility] 02-06-2024 09:30-0400 Heart rate 60 /min Pfo 6 [facility] 02-06-2024 09:30-0400 Respiratory rate 188 /min Pfo 6 [facility] 02-06-2024 09:30-0400 SaO2% (BldA) [Mass fraction] 98 % Pfo 6 [facility] 02-06-2024 09:30-0400 Systolic blood pressure 176 mm[Hg] Pfo 6 [facility] 01-30-2024 09:25-0400 Body height 165.1 cm Pfo 6 [facility] 01-30-2024 09:25-0400 Body mass index (BMI) [Ratio] 44.93 kg/m2 Pfo 6 [facility] 01-30-2024 09:25-0400 Body temperature 97.7 [degF] Pfo 6 [facility] 01-30-2024 09:25-0400 Body weight 122.47 kg Pfo 6 [facility] 01-30-2024 09:25-0400 Diastolic blood pressure 60 mm[Hg] Pfo 6 [facility] 01-30-2024 09:25-0400 Heart rate 56 /min Pfo 6 [facility] 01-30-2024 09:25-0400 Respiratory rate 18 /min Pfo 6 [facility] 01-30-2024 09:25-0400 SaO2% (BldA) [Mass fraction] 93 % Pfo 6 [facility] 01-30-2024 09:25-0400 Systolic blood pressure 168 mm[Hg] Pfo 6 [facility] 01-23-2024 09:33-0400 Body height 165.1 cm Pfo 6 [facility] 01-23-2024 09:33-0400 Body mass index (BMI) [Ratio] 45.93 kg/m2 Pfo 6 [facility] 01-23-2024 09:33-0400 Body temperature 97.39 [degF] Pfo 6 [facility] 01-23-2024 09:33-0400 Body weight 125.19 kg Pfo 6 [facility] 01-23-2024 09:33-0400 Diastolic blood pressure 73 mm[Hg] Pfo 6 [facility] 01-23-2024 09:33-0400 Heart rate 66 /min Pfo 6 [facility] 01-23-2024 09:33-0400 Respiratory rate 18 /min Pfo 6 [facility] 01-23-2024 09:33-0400 SaO2% (BldA) [Mass fraction] 98 % Pfo 6 [facility] 01-23-2024 09:33-0400 Systolic blood pressure 180 mm[Hg] Pfo 6 [facility] 01-16-2024 09:24-0500 Body height 165.1 cm Pfo 6 [facility] 01-16-2024 09:24-0500 Body mass index (BMI) [Ratio] 46.1 kg/m2 Pfo 6 [facility] 01-16-2024 09:24-0500 Body temperature 98.01 [degF] Pfo 6 [facility] 01-16-2024 09:24-0500 Body weight 125.65 kg Pfo 6 [facility] 01-16-2024 09:24-0500 Diastolic blood pressure 80 mm[Hg] Pfo 6 [facility] 01-16-2024 09:24-0500 Heart rate 71 /min Pfo 6 [facility] 01-16-2024 09:24-0500 Respiratory rate 18 /min Pfo 6 [facility] 01-16-2024 09:24-0500 SaO2% (BldA) [Mass fraction] 97 % Pfo 6 [facility] 01-16-2024 09:24-0500 Systolic blood pressure 180 mm[Hg] Pfo 6 [facility] 01-09-2024 09:36-0500 Body height 165.1 cm Pfo 3 [facility] 01-09-2024 09:36-0500 Body mass index (BMI) [Ratio] 46.1 kg/m2 Pfo 3 [facility] 01-09-2024 09:36-0500 Body temperature 97.9 [degF] Pfo 3 [facility] 01-09-2024 09:36-0500 Body weight 125.65 kg Pfo 3 [facility] 01-09-2024 09:36-0500 Diastolic blood pressure 75 mm[Hg] Pfo 3 [facility] 01-09-2024 09:36-0500 Heart rate 70 /min Pfo 3 [facility] 01-09-2024 09:36-0500 Respiratory rate 18 /min Pfo 3 [facility] 01-09-2024 09:36-0500 SaO2% (BldA) [Mass fraction] 97 % Pfo 3 [facility] 01-09-2024 09:36-0500 Systolic blood pressure 180 mm[Hg] Pfo 3 [facility] 01-02-2024 09:37-0500 Body temperature 98.01 [degF] Pfo 4 [facility] [facility] 01-02-2024 09:37-0500 Diastolic blood pressure 72 mm[Hg] Pfo 4 [facility] 01-02-2024 09:37-0500 Heart rate 62 /min Pfo 4 [facility] 01-02-2024 09:37-0500 Respiratory rate 18 /min Pfo 4 [facility] 01-02-2024 09:37-0500 SaO2% (BldA) [Mass fraction] 95 % Pfo 4 [facility] 01-02-2024 09:37-0500 Systolic blood pressure 184 mm[Hg] Pfo 4 [facility] 12-26-2023 09:37-0500 Body height 165.1 cm Pfo 4 [facility] 12-26-2023 09:37-0500 Body mass index (BMI) [Ratio] 46.1 kg/m2 Pfo 4 [facility] 12-26-2023 09:37-0500 Body temperature 97.7 [degF] Pfo 4 [facility] 12-26-2023 09:37-0500 Body weight 125.65 kg Pfo 4 [facility] 12-26-2023 09:37-0500 Diastolic blood pressure 64 mm[Hg] Pfo 4 [facility] 12-26-2023 09:37-0500 Heart rate 67 /min Pfo 4 [facility] 12-26-2023 09:37-0500 Respiratory rate 18 /min Pfo 4 [facility] 12-26-2023 09:37-0500 SaO2% (BldA) [Mass fraction] 96 % Pfo 4 [facility] 12-26-2023 09:37-0500 Systolic blood pressure 177 mm[Hg] Pfo 4 [facility] 12-19-2023 09:30-0500 Body height 165.1 cm Pfo 2 [facility] 12-19-2023 09:30-0500 Body mass index (BMI) [Ratio] 46.13 kg/m2 Pfo 2 [facility] 12-19-2023 09:30-0500 Body temperature 97.39 [degF] Pfo 2 [facility] 12-19-2023 09:30-0500 Body weight 125.74 kg Pfo 2 [facility] 12-19-2023 09:30-0500 Diastolic blood pressure 67 mm[Hg] Pfo 2 [facility] 12-19-2023 09:30-0500 Heart rate 67 /min Pfo 2 [facility] 12-19-2023 09:30-0500 Respiratory rate 18 /min Pfo 2 [facility] 12-19-2023 09:30-0500 SaO2% (BldA) [Mass fraction] 97 % Pfo 2 [facility] 12-19-2023 09:30-0500 Systolic blood pressure 196 mm[Hg] Pfo 2 [facility] 12-12-2023 09:25-0500 Body height 165.1 cm Pfo 2 [facility] 12-12-2023 09:25-0500 Body mass index (BMI) [Ratio] 45.43 kg/m2 Pfo 2 [facility] 12-12-2023 09:25-0500 Body temperature 97.5 [degF] Pfo 2 [facility] 12-12-2023 09:25-0500 Body weight 123.83 kg Pfo 2 [facility] 12-12-2023 09:25-0500 Diastolic blood pressure 71 mm[Hg] Pfo 2 [facility] 12-12-2023 09:25-0500 Heart rate 70 /min Pfo 2 [facility] 12-12-2023 09:25-0500 Respiratory rate 18 /min Pfo 2 [facility] [facility] 12-12-2023 09:25-0500 SaO2% (BldA) [Mass fraction] 98 % Pfo 2 [facility] 12-12-2023 09:25-0500 Systolic blood pressure 166 mm[Hg] Pfo 2 [facility] 11-28-2023 09:17-0500 Body height 165.1 cm Pfo 1 [facility] 11-28-2023 09:17-0500 Body mass index (BMI) [Ratio] 44.93 kg/m2 Pfo 1 [facility] 11-28-2023 09:17-0500 Body temperature 97.2 [degF] Pfo 1 [facility] 11-28-2023 09:17-0500 Body weight 122.47 kg Pfo 1 [facility] 11-28-2023 09:17-0500 Diastolic blood pressure 56 mm[Hg] Pfo 1 [facility] 11-28-2023 09:17-0500 Heart rate 79 /min Pfo 1 [facility] 11-28-2023 09:17-0500 Respiratory rate 18 /min Pfo 1 [facility] 11-28-2023 09:17-0500 SaO2% (BldA) [Mass fraction] 99 % Pfo 1 [facility] 11-28-2023 09:17-0500 Systolic blood pressure 156 mm[Hg] Pfo 1 [facility] 11-21-2023 10:01-0500 Body height 165.1 cm Pfo 1 [facility] 11-21-2023 10:01-0500 Body mass index (BMI) [Ratio] 44.6 kg/m2 Pfo 1 [facility] 11-21-2023 10:01-0500 Body temperature 97.81 [degF] Pfo 1 [facility] 11-21-2023 10:01-0500 Body weight 121.56 kg Pfo 1 [facility] 11-21-2023 10:01-0500 Diastolic blood pressure 52 mm[Hg] Pfo 1 [facility] 11-21-2023 10:01-0500 Heart rate 62 /min Pfo 1 [facility] 11-21-2023 10:01-0500 Respiratory rate 18 /min Pfo 1 [facility] 11-21-2023 10:01-0500 SaO2% (BldA) [Mass fraction] 94 % Pfo 1 [facility] 11-21-2023 10:01-0500 Systolic blood pressure 122 mm[Hg] Pfo 1 [facility] 11-16-2023 09:00-0500 Body temperature 96.6 [degF] DO Fernie [employer] Work Phone: [facility] 11-16-2023 09:00-0500 Diastolic blood pressure 74 mm[Hg] DO Fernie Furlong Work Phone: [facility] 11-16-2023 09:00-0500 Heart rate 71 /min DO [employer] Work Phone: [facility] 11-16-2023 09:00-0500 Respiratory rate 18 /min DO [employer] Work Phone: [facility] 11-16-2023 09:00-0500 SaO2% (BldA) [Mass fraction] 97 % DO Fernie [employer] Work Phone: [facility] 11-16-2023 09:00-0500 Systolic blood pressure 148 mm[Hg] DO Fernie Furlong Work Phone: [facility] 08-23-2023 12:20-0400 Body height 165.1 cm Gia Tammy Other [employer] [facility] [employer] Other 08-23-2023 12:20-0400 Body mass index (BMI) [Ratio] 44.09 kg/m2 Gia Tammy Other [employer] Other 08-23-2023 12:20-0400 Body temperature 96.6 [degF] Gia Tammy Other [employer] Other 08-23-2023 12:20-0400 Body weight 120.2 kg Gia Tammy Other [employer] Other 08-23-2023 12:20-0400 Diastolic blood pressure 86 mm[Hg] Gia Tammy Other [employer] Other 08-23-2023 12:20-0400 Respiratory rate 18 /min Gia Tammy Other [employer] Other 08-23-2023 12:20-0400 SaO2% (BldA) [Mass fraction] 96 % Gia Tammy Other [employer] Other 08-23-2023 12:20-0400 Systolic blood pressure 138 mm[Hg] Gia Tammy Other [employer] Other 01-25-2023 12:20-0400 Body height 165.1 cm Gia Tammy Other [employer] Other 01-25-2023 12:20-0400 Body mass index (BMI) [Ratio] 45.76 kg/m2 Gia Tammy Other [employer] Other 01-25-2023 12:20-0400 Body temperature 96.7 [degF] Gia Tammy Other [employer] Other 01-25-2023 12:20-0400 Body weight 124.74 kg Gia Tammy Other [employer] Other 01-25-2023 12:20-0400 Diastolic blood pressure 80 mm[Hg] Gia Tammy Other [employer] Other 01-25-2023 12:20-0400 Respiratory rate 18 /min Gia Tammy Other [employer] Other 01-25-2023 12:20-0400 SaO2% (BldA) [Mass fraction] 96 % Gia Tammy Other [employer] Other 01-25-2023 12:20-0400 Systolic blood pressure 139 mm[Hg] Gia Tammy Other [employer] Other 07-20-2022 13:00-0400 Body height 165.1 cm Gia Tammy Other [employer] Other 07-20-2022 13:00-0400 Body temperature 96 [degF] Gia Tammy Other [employer] Other 07-20-2022 13:00-0400 Diastolic blood pressure 71 mm[Hg] Gia Tammy Other [employer] Other 07-20-2022 13:00-0400 Respiratory rate 18 /min Gia Tammy Other [employer] Other 07-20-2022 13:00-0400 SaO2% (BldA) [Mass fraction] 96 % Gia Tammy Other [employer] Other 07-20-2022 13:00-0400 Systolic blood pressure 134 mm[Hg] Gia Tammy Other [employer] Other 04-06-2022 12:00-0400 Body height 165.1 cm Gia Tammy Other [employer] Other 04-06-2022 12:00-0400 Body mass index (BMI) [Ratio] 46.32 kg/m2 Gia Tammy Other [employer] Other 04-06-2022 12:00-0400 Body temperature 98 [degF] Gia Tammy Other [employer] Other 04-06-2022 12:00-0400 Body weight 126.28 kg Gia Tammy Other [employer] Other 04-06-2022 12:00-0400 Diastolic blood pressure 70 mm[Hg] Gia Tammy Other [employer] Other 04-06-2022 12:00-0400 Respiratory rate 20 /min Gia Tammy Other [employer] Other 04-06-2022 12:00-0400 SaO2% (BldA) [Mass fraction] 93 % Gia Tammy Other [employer] Other 04-06-2022 12:00-0400 Systolic blood pressure 122 mm[Hg] Gia Tammy Other [employer] Other 12-27-2021 16:20-0500 Body height 165.1 cm Gia Tammy Other [employer] Other 12-27-2021 16:20-0500 Body mass index (BMI) [Ratio] 46.29 kg/m2 Gia Tammy Other [employer] Other 12-27-2021 16:20-0500 Body temperature 96.2 [degF] Gia Tammy Other [employer] Other 12-27-2021 16:20-0500 Body weight 126.19 kg Gia Tammy Other [employer] Other 12-27-2021 16:20-0500 Diastolic blood pressure 78 mm[Hg] Gia Tammy Other [employer] Other 12-27-2021 16:20-0500 Respiratory rate 20 /min Gia Tammy Other [employer] Other 12-27-2021 16:20-0500 SaO2% (BldA) [Mass fraction] 95 % Gia Tammy Other [employer] Other 12-27-2021 16:20-0500 Systolic blood pressure 161 mm[Hg] Gia Tammy Other [employer] Other Encounters Encounter Date Encounter Type Care Provider Facility Start: 12-02-2024 End: 12-02-2024 Orders Only Fernie Ricketts Tracyangel luis DO [facility] Comment on above: Lumbar stenosis with neurogenic claudication (Primary Dx) Start: 12-01-2024 End: 12-01-2024 Telephone encounter Jennifer [facility] Comment on above: orders for patient t o be sent out to hospital for evaluation Start: 11-24-2024 End: 11-24-2024 Telephone encounter Fernie Ricketts Tracyangel luis DO Work Phone[facility] Start: 11-20-2024 End: 11-20-2024 ambulatory Fernie Tracyangel luis DO Work Phone: [facility] Work Phone: Start: 11-20-2024 End: 11-20-2024 Departed Referred Fernie Hackett DO Work Phone: [facility] Start: 11-18-2024 End: 11-18-2024 Orders Only Fannie hu [facility] Comment on above: Hypomagnesemia (Prim fara Dx) Start: 11-17-2024 End: 11-19-2024 Telephone encounter Fernie Hackett DO Work Phone: [facility] Start: 11-17-2024 End: 11-17-2024 [facility] Start: 11-10-2024 End: 11-10-2024 [facility] Start: 11-04-2024 End: 11-04-2024 ambulatory Pfo Infusion Bed 1 Elida hu [facility] On[facility] Comment on above: Hypomagnesemia (Prim fara Dx) Start: 11-03-2024 End: 11-03-2024 Refill Fernie Hackett DO [facility] Start: 11-03-2024 End: 11-03-2024 Orders Only Fernie Hackett DO Work Phone: [facility] Start: 11-03-2024 End: 11-03-2024 ambulatory Christian Curtis MD Facility:[facility] Start: 10-27-2024 End: 10-27-2024 ambulatory [facility] Start: 10-20-2024 End: 10-20-2024 Documentation procedure Clara prince [facility] Start: 10-20-2024 End: 10-20-2024 ambulatory [facility] Start: 10-13-2024 End: 10-13-2024 ambulatory [facility] Start: 10-07-2024 End: 10-14-2024 Refill Fernie Hackett DO Work Phone: [facility] Start: 10-07-2024 End: 10-07-2024 ambulatory Pfo Infusion Chair 2 Elida Ireland [facility] - Medical Oncology Comment on above: Hypomagnesemia (Prim fara Dx) Start: 10-06-2024 End: 10-06-2024 ambulatory [facility] Start: 10-01-2024 End: 10-01-2024 ambulatory Pfo Infusion Chair 5 Elida Ireland [facility] Medical Oncology Comment on above: Hypomagnesemia (Prim fara Dx) Start: 09-29-2024 End: 09-29-2024 [facility] Start: 09-27-2024 End: 09-27-2024 Orders Only Fernie Hackett DO [facility] Start: 09-26-2024 End: 09-26-2024 Evaluation and management of inpatient [facility] Start: 09-22-2024 End: 09-22-2024 [facility] Start: 09-15-2024 End: 09-15-2024 [facility] Start: 09-11-2024 End: 09-11-2024 Refill Fernie Hackett DO Work Phone: [facility] Start: 09-10-2024 End: 09-10-2024 [facility] Comment on above: EMG NEW PATIENT Start: 09-10-2024 End: 09-10-2024 ambulatory Pfo Infusion Chair 5 Elida Ireland [facility] - Medical Oncology Comment on above: Hypomagnesemia (Prim fara Dx) Start: 09-08-2024 End: 09-08-2024 [facility] Start: 09-04-2024 End: 09-04-2024 Orders Only Fernie Molinaangel luis DO Work Phone: [facility] Internal [facility] - Family Medicine Comment on above: Paresthesia of right lower extremity (Primary Dx); Ross's esophagus with dysplasia Start: 09-01-2024 End: 09-01-2024 Documentation procedure Americo Lira [facility] - Medical Oncology Start: 09-01-2024 End: 09-01-2024 [facility] Start: 08-27-2024 End: 08-27-2024 ambulatory Pfo Infusion Chair 5 Elida Irelnad [facility] Medical Oncology Comment on above: Hypomagnesemia (Prim fara Dx) Start: 08-25-2024 End: 08-25-2024 [facility] Start: 08-22-2024 End: 08-25-2024 Refill Fernie Molinaangel luis DO Work Phone: [facility] Internal Medicine - Family Medicine Comment on above: 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 ([facility]) (Primary Dx); Morbid obesity ([facility]) Start: 08-20-2024 End: 08-20-2024 ambulatory Pfo Infusion Chair 5 Elida Ireland [facility] Oncology Comment on above: Hypomagnesemia (Prim fara Dx) Start: 08-18-2024 End: 08-18-2024 [facility] Start: 08-13-2024 End: 08-13-2024 ambulatory Pfo Infusion Chair 4 Elida Ireland [facility] Medical Oncology Comment on above: Hypomagnesemia (Prim fara Dx) Start: 08-11-2024 End: 08-11-2024 [facility] Start: 08-06-2024 End: 08-06-2024 ambulatory [facility] Start: 08-04-2024 End: 08-04-2024 ambulatory [facility] Start: 07-30-2024 End: 07-30-2024 ambulatory [facility] Start: 07-28-2024 End: 07-28-2024 ambulatory [facility] Start: 07-28-2024 End: 07-28-2024 ambulatory Christian Curtis MD Facility: [facility] Start: 07-23-2024 End: 07-23-2024 ambulatory [facility] Start: 07-21-2024 End: 07-21-2024 ambulatory [facility] Start: 07-16-2024 End: 07-16-2024 ambulatory [facility] Start: 07-15-2024 End: 07-15-2024 ambulatory [facility] Start: 07-09-2024 End: 07-09-2024 ambulatory [facility] Start: 07-07-2024 End: 07-07-2024 ambulatory [facility] Start: 07-02-2024 End: 07-02-2024 ambulatory [facility] Start: 06-30-2024 End: 06-30-2024 ambulatory [facility] Start: 06-25-2024 End: 06-25-2024 ambulatory [facility] Start: 06-23-2024 End: 06-23-2024 ambulatory [facility] Start: 06-18-2024 End: 06-18-2024 ambulatory [facility] Start: 06-16-2024 End: 06-16-2024 ambulatory [facility] Start: 06-11-2024 End: 06-11-2024 ambulatory [facility] Start: 06-09-2024 End: 06-09-2024 ambulatory [facility] Start: 06-04-2024 End: 06-04-2024 ambulatory [facility] Start: 06-02-2024 End: 06-02-2024 ambulatory [facility] Start: 05-30-2024 End: 05-30-2024 ambulatory [facility] Start: 05-28-2024 End: 05-28-2024 ambulatory [facility] Start: 05-27-2024 End: 05-27-2024 ambulatory [facility] Start: 05-27-2024 End: 05-27-2024 ambulatory [facility] Start: 05-26-2024 End: 05-26-2024 ambulatory [facility] Start: 05-21-2024 End: 05-21-2024 ambulatory [facility] Start: 05-19-2024 End: 05-19-2024 ambulatory [facility] Start: 05-14-2024 End: 05-14-2024 ambulatory [facility] Start: 05-12-2024 End: 05-12-2024 ambulatory [facility] Start: 05-07-2024 End: 05-07-2024 ambulatory [facility] Start: 05-05-2024 End: 05-05-2024 ambulatory [facility] Start: 05-01-2024 End: 05-01-2024 ambulatory [facility] Work Phone: Start: 05-01-2024 End: 05-01-2024 Patient encounter procedure [facility] Nephrology Tod Work Phone: Start: 04-30-2024 End: 04-30-2024 ambulatory [facility] Start: 04-28-2024 Non-patient / Non-visit [facility] Nephrology Work Phone: Start: 04-28-2024 End: 04-28-2024 ambulatory [facility] Start: 04-23-2024 End: 04-23-2024 ambulatory [facility] Start: 04-21-2024 End: 04-21-2024 ambulatory [facility] Start: 04-16-2024 End: 04-16-2024 ambulatory [facility] Start: 04-14-2024 End: 04-14-2024 ambulatory [facility] Start: 04-09-2024 End: 04-09-2024 ambulatory [facility] Start: 04-08-2024 End: 04-08-2024 ambulatory [facility] Start: 04-02-2024 End: 04-02-2024 ambulatory [facility] Start: 03-31-2024 End: 03-31-2024 ambulatory [facility] Start: 03-26-2024 End: 03-26-2024 ambulatory [facility] Start: 03-24-2024 End: 03-24-2024 ambulatory [facility] Start: 03-19-2024 End: 03-19-2024 ambulatory [facility] Start: 03-17-2024 End: 03-17-2024 ambulatory [facility] Start: 03-12-2024 End: 03-12-2024 ambulatory [facility] Start: 03-10-2024 End: 03-10-2024 ambulatory [facility] Start: 03-03-2024 End: 03-03-2024 [facility] Start: 02-25-2024 End: 02-25-2024 Office outpatient visit 15 minutes Fernie Hackett DO Work Phone: [facility] Internal Medicine - Family Medicine Comment on above: Urinary incontinence , unspecified type (Primary Dx); Abnormality of gait and mobility Start: 02-25-2024 End: 02-25-2024 [facility] Start: 02-25-2024 End: 02-25-2024 Documentation procedure Millie Ireland [facility] Start: 02-25-2024 End: 02-25-2024 [facility] Start: 02-20-2024 End: 02-20-2024 Documentation procedure Americo Lira [facility] On[facility] Start: 02-18-2024 End: 02-18-2024 [facility] Start: 02-13-2024 End: 02-13-2024 ambulatory Pfo Infusion Chair 6 Elida Ireland [facility] - Medical Oncology Comment on above: Hypomagnesemia (Prim fara Dx) Start: 02-11-2024 End: 02-11-2024 [facility] Start: 02-06-2024 End: 02-06-2024 ambulatory Pfo Infusion Chair 6 Elida Ireland [facility] Medical Oncology Comment on above: Hypomagnesemia (Prim fara Dx) Start: 02-04-2024 End: 02-04-2024 ambulatory [facility] Start: 02-04-2024 End: 02-04-2024 ambulatory Christian Curtis MD Facility: [facility] Start: 01-30-2024 End: 01-30-2024 ambulatory Pfo Infusion Chair 6 Elida Ireland [facility] Medical Oncology Comment on above: Hypomagnesemia (Prim fara Dx) Start: 01-28-2024 End: 01-28-2024 ambulatory [facility] Start: 01-23-2024 End: 01-23-2024 ambulatory Pfo Infusion Chair 6 Elida Ireland [facility] - Medical Oncology Comment on above: Hypomagnesemia (Prim fara Dx) Start: 01-21-2024 End: 01-21-2024 ambulatory [facility] Start: 01-21-2024 End: 01-21-2024 ambulatory Christian Curtis MD Facility:[facility] Start: 01-17-2024 Orders Only Fernie noguera DO Work Phone: [facility] Internal Medicine - Family Medicine Comment on above: Hypertension 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 ([facility]) (Primary Dx) Start: 01-16-2024 End: 01-16-2024 ambulatory Pfo Infusion Chair 6 Elida Ireland [facility] Medical Oncology Comment on above: Hypomagnesemia (Prim fara Dx) Start: 01-14-2024 End: 01-14-2024 ambulatory [facility] Start: 01-09-2024 End: 01-09-2024 ambulatory Pfo Infusion Chair 3 Elida Ireland [facility] Medical Oncology Comment on above: Hypomagnesemia (Prim fara Dx) Start: 01-08-2024 End: 01-08-2024 Patient encounter procedure Fernie Molinaangel luis DO Work Phone: [facility] Internal Medicine - Family Medicine Comment on above: Medicare annual well ness visit, subsequent (Primary Dx); Screening for depression Start: 01-08-2024 End: 01-08-2024 ambulatory [facility] Start: 01-07-2024 End: 01-07-2024 ambulatory [facility] Start: 01-02-2024 End: 01-11-2024 ambulatory Pfo Infusion Chair 4 Elida Ireland [facility] Medical Oncology Comment on above: Hypomagnesemia (Prim fara Dx) Start: 12-31-2023 End: 12-31-2023 ambulatory [facility] Start: 12-26-2023 End: 12-26-2023 ambulatory Pfo Infusion Chair 4 Elida Ireland [facility] Medical Oncology Comment on above: Hypomagnesemia (Prim fara Dx) Start: 12-24-2023 End: 12-24-2023 [facility] Start: 12-19-2023 End: 12-19-2023 ambulatory Pfo Infusion Chair 2 Elida Ireland [facility] Oncology Comment on above: Hypomagnesemia (Prim fara Dx) Start: 12-17-2023 End: 12-17-2023 ambulatory [facility] Start: 12-12-2023 End: 12-12-2023 ambulatory Pfo Infusion Chair 2 Elida Ireland [facility] Medical Oncology Comment on above: Hypomagnesemia (Prim fara Dx) Start: 12-11-2023 Refill Theresa Dhaval [employer] [facility] Start: 12-10-2023 End: 12-10-2023 ambulatory [facility] Start: 12-07-2023 Orders Only Fernie noguera DO Work Phone: [facility] Internal Medicine - Family Medicine Start: 12-05-2023 Telephone encounter [facility] Start: 12-05-2023 End: 12-05-2023 ambulatory FERNIE HACKETT [place] [employer] Other Start: 12-04-2023 Refill Fernie noguera DO Work Phone: [facility] Internal Medicine - Family Medicine Start: 12-03-2023 End: 12-03-2023 ambulatory [facility] Start: 11-28-2023 End: 11-28-2023 [facility] Comment on above: Hypomagnesemia (Prim fara Dx) Start: 11-26-2023 End: 11-26-2023 ambulatory FERNIE HACKETT [facility] Start: 11-26-2023 End: 11-26-2023 ambulatory FERNIE [facility] Start: 11-26-2023 End: 11-26-2023 [facility] Start: 11-21-2023 End: 11-21-2023 ambulatory Pfo Infusion Bed 1 Elida Lucas [facility] - Medical Oncology Comment on above: Hypomagnesemia (Prim fara Dx) Mixed hyperlipidemia (Primary Dx); Type 2 diabetes mellitus with stage 3b chronic kidney disease, with long-term current use of insulin ([facility]); Essential hypertension Start: 11-20-2023 Chart abstracting Felicity Merritt [facility] - Medical Oncology Start: 11-19-2023 End: 11-19-2023 ambulatory DARELL SYLVESTER [facility] Comment on above: Hypomagnesemia (Prim fara Dx) Start: 11-16-2023 End: 11-16-2023 ambulatory DO Fernie Hackett Work Phone: [facility] [facility] Work Phone: Start: 11-16-2023 End: 11-16-2023 Discharged Recurring DO Fernie Hackett Work Phone: [facility] Work Phone: Start: 11-12-2023 Refill Fernie noguera DO Work Phone: [facility] Start: 08-23-2023 End: 08-23-2023 ambulatory Gia Tammy Other [facility] Other Start: 08-23-2023 Office outpatient vi sit 25 minutes Gia Tammy [facility] [place] Start: 04-26-[address] FERNIE HACKETT Fac ility:[facility]1 Start: 01-25-2023 End: 01-26-[address] LUISA STERN . [facility] Other Start: 01-25-2023 Office outpatient vi sit 25 minutes Gia Tammy [facility] [place] Start: 01-15-2023 End: 01-16-2023 ambulatory GIA TAMMY Facility:[facility]1 Start: 12-06-2022 End: 12-06-2022 ambulatory E[facility] Start: 11-09-2022 End: 11-10-[address] FERNIE HACKETT Facility:[facility] Start: 10-26-2022 End: 10-27-[address] LUISA STERN . Facility:[facility] Start: 08-02-2022 End: 08-03-[address] LUISA STERN . Facility:[facility] Start: 07-20-2022 End: 07-20-2022 ambulatory Gia Tammy Other [facility] Other Start: 07-20-2022 Office outpatient vi sit 25 minutes Gia Tammy [facility] Start: 07-12-2022 End: 07-13-2022 ambulatory GIA TAMMY Facility:[facility] Start: 05-03-2022 End: 05-03-2022 ambulatory Gia Tammy Other [facility] Other Start: 05-03-2022 Telephone encounter Gia Tammy [facility] Start: 04-25-2022 End: 04-26-[address] LUISA STERN . Facility:[facility] Start: 04-06-2022 End: 04-06-2022 ambulatory Gia Tammy Other [facility] Other Start: 04-06-2022 Office outpatient vi sit 25 minutes Gia Tammy [facility] [place] Start: 03-30-2022 End: 03-31-2022 ambulatory GIA TAMMY Facility:[facility] Start: 03-30-2022 End: 03-31-[address] LUISA STERN . Facility:[facility] Start: 12-27-2021 End: 12-27-2021 ambulatory Gia Tammy Other [facility] Other Start: 12-27-2021 Office outpatient vi sit 15 minutes Gia Tammy [facility] Start: 11-28-2021 End: 11-28-2021 ambulatory Gia Tammy Other [facility] Other Start: 11-28-2021 Telephone encounter Gia Tammy [facility] Start: 11-24-2021 End: 11-24-2021 ambulatory Gia Tammy Other [facility] Other Start: 11-24-2021 Telephone encounter Gia Tammy [facility] Start: 03-30-2021 End: 03-31-2021 ambulatory EHAB A [facility] Facility:[facility] Procedures Date Procedure Procedure Detail Performing Clinician Start: 05-27-2024 Follow-up visit Follow-up FERNIE HACKETT Start: 05-27-2024 Adult depression screening assessment Pfo 4 Start: 02-25-2024 Adult depression screening assessment Millie Hernandez RN Start: 01-08-2024 Adult depression screening assessment Fernie Molinaangel luis DO Work Phone: Start: 11-26-2023 Adult depression screening assessment Pfo 1 Start: 11-16-2023 MULTIPLE LABS Not In Sy stem Ref Prov Start: 10-18-2023 Adult depression screening assessment Fernie Hackett DO Work Phone: Plan of Treatment Date Care Activity Detail Author Start: 09-30-2028 DTaP,Tdap and Td Vaccines (2 - Td or Tdap) DTaP,Tdap and Td Vaccines (2 - Td or Tdap) [facility] Start: 11-04-2025 Fall Risk Screening Fall Risk Screening [facility] Start: 10-07-2025 Fall Risk Screening Fall Risk Screening [facility] Start: 09-26-2025 Tobacco Screening Tobacco Screening [facility] Start: 08-27-2025 Adult BMI Screening Adult BMI Screening [facility] Start: 08-27-2025 Fall Risk Screening Fall Risk Screening [facility] Start: 08-20-2025 Adult BMI Screening Adult BMI Screening [facility] Start: 08-13-2025 Adult BMI Screening Adult [facility] Start: 08-06-2025 Tobacco Screening Tobacco Screening [facility] Start: 05-27-2025 Depression Screening Depression Screening [facility] Start: 05-07-2025 Fall Risk Screening Fall Risk Screening [facility] Start: 02-12-2025 Adult BMI Screening Adult BMI Screening [facility] Start: 02-12-2025 Tobacco Screening Tobacco Screening [facility] Start: 02-05-2025 Adult BMI Screening Adult BMI Screening [facility] Start: 02-05-2025 Tobacco Screening Tobacco Screening [facility] Start: 01-29-2025 Adult BMI Screening Adult BMI Screening [facility] Start: 01-29-2025 Tobacco Screening Tobacco Screening [facility] Start: 01-22-2025 Adult BMI Screening Adult BMI Screening [facility] Start: 01-22-2025 Tobacco Screening Tobacco Screening [facility] Start: 01-15-2025 Adult BMI Screening Adult BMI Screening [facility] Start: 01-13-2025 End: 01-13-2025 Patient encounter procedure 01/13/2025 12:40 PM EST Of fice Visit [facility] Internal [facility] - Family Medicine [address] [place] [address] [facility] Family Medicine Start: 01-09-2025 Adult BMI Screening Adult BMI Screening [facility] Start: 01-09-2025 Tobacco Screening Tobacco Screening [facility] Start: 01-08-2025 Depression Screening Depression Screening [facility] Start: 01-08-2025 Fall Risk Screening Fall Risk Screening [facility] Start: 01-08-2025 Medicare Annual Wellness Visit Medicare Annual Wellness Visi t [facility] Start: 01-02-2025 Tobacco Screening Tobacco Screening [facility] Start: 12-26-2024 Adult BMI Screening Adult BMI Screening [facility] Start: 12-26-2024 Tobacco Screening Tobacco Screening [facility] Start: 12-19-2024 Adult BMI Screening Adult BMI Screening [facility] Start: 12-19-2024 Tobacco Screening Tobacco Screening [facility] Start: 12-15-2024 End: 12-15-2024 Patient encounter procedure 12/15/2024 12:30 PM EST Procedure visit [facility] [address] [place] [address] Ton Urbano MD [address] [place] [address] [facility] Start: 12-12-2024 Adult BMI Screening Adult BMI Screening [facility] Start: 12-10-2024 End: 12-10-2024 ambulatory 12/10/2024 9:30 AM EST Infusion Elida Ireland [facility] Medical Oncology [address] [place] [phone] Elida Ireland [facility] Start: 12-05-2024 Adult BMI Screening Adult BMI Screening [facility] Start: 12-05-2024 Tobacco Screening Tobacco Screening [facility] Start: 12-04-2024 End: 12-04-2024 Patient encounter procedure 12/04/2024 1:30 PM EST [facility] [address] [place] [address] Fernie Hackett, DO [address], [facility] [place] [address] [facility] Start: 12-03-2024 End: 12-03-2024 ambulatory 12/03/2024 9:30 AM EST Infusion Elida Ireland [facility] Medical Oncology [address] [place] [phone] Elida [address] [facility] Start: 11-28-2024 Adult BMI Screening Adult BMI Screening [facility] Start: 11-28-2024 Tobacco Screening Tobacco Screening [facility] Start: 11-27-2024 End: 11-27-2024 Patient encounter procedure 11/27/2024 1:00 PM EST Off ice Visit [facility] [address] [place] [address] Fernie Hackett DO [address], [place] [address] [facility] Start: 11-26-2024 Adult BMI Screening Adult BMI Screening [facility] Start: 11-26-2024 Depression Screening Depression Screening [facility] Start: 11-26-2024 Fall Risk Screening Fall Risk Screening [facility] Start: 11-26-2024 Tobacco Screening Tobacco Screening [facility] Start: 11-26-2024 End: 11-26-2024 ambulatory 11/26/2024 9:30 AM EST Infusion Elida Ireland [facility] - Medical Oncology [address] [place] [phone] Elida Ireland [facility] - [facility] Oncology Start: 11-21-2024 Adult BMI Screening Adult BMI Screening [facility] Start: 11-20-2024 Bacteria identified in Urine by Culture Urine Culture [facility] Start: 11-20-2024 Urine culture [facility] Start: 11-18-2024 End: 11-18-2024 ambulatory 11/18/2024 11:30 AM EST Infusion Elida Ireland [facility] - Medical Oncology [address] [place] [phone] Elida Ireland [facility] - [facility] Oncology Start: 11-11-2024 End: 11-11-2024 ambulatory 11/11/2024 9:30 AM EST Infusion Elida Ireland [facility] - Medical Oncology [address] [place] [phone] Elida Ireland [facility]cology Start: 11-04-2024 End: 11-04-2024 ambulatory 11/04/2024 9:30 AM EST Infusion Elida Ireland [facility] - Medical Oncology [address] [place] [address] Elida Ireland [facility]cology Start: 10-29-2024 End: 10-29-2024 ambulatory 10/29/2024 9:30 AM EST Infusion Elida Ireland [facility] - Medical Oncology [address] [place] [phone] Elida Ireland [facility]cology Start: 10-22-2024 End: 10-22-2024 ambulatory 10/22/2024 9:30 AM EST Infusion Elida Ireland [facility] - [facility] Oncology [address] [place] [phone] Elida Ireland [facility] Oncology Start: 10-20-2024 Subsequent hospital visit by physician 10/20/2024 11:33 AM EST Hospital Encounter [facility] [address] [place] [id number] Hypomagnesemia [facility] Comment on above: Hypomagnesemia Start: 10-18-2024 Adult BMI Screening Adult BMI Screening [facility] Start: 10-18-2024 Depression Screening Depression Screening [facility] Start: 10-18-2024 Tobacco Screening Tobacco Screening [facility] Start: 10-15-2024 End: 10-15-2024 ambulatory 10/15/2024 9:30 AM EST Infusion Elida Ireland [facility] - Medical Oncology [address] [place] [phone] Elida Ireland [facility]cology Start: 10-08-2024 End: 10-08-2024 ambulatory 10/08/2024 9:30 AM EST Infusion Elida Ireland [facility] - Medical Oncology [address] [place] [phone] Elida Ireland [facility] Oncology Start: 10-07-2024 End: 10-07-2024 ambulatory 10/07/2024 9:30 AM EST Infusion Elida Ireland [facility] Medical Oncology [address] [place] [phone] Elida Ireland [facility] Start: 10-01-2024 End: 10-01-2024 ambulatory 10/01/2024 9:30 AM EST Infusion Elida Ireland [facility] - Medical Oncology [address] [place] [address] Elida Ireland [facility] Start: 09-26-2024 End: 09-26-2024 Admission to same day surgery center 09/26/2024 12:30 PM EST - 09/26/2024 1:30 PM EST Surgery [facility] [address] [place] [phone] Daniel Guerrero, DO [address] [place] [address] ESOPHAGOGASTRODUODENOSCOPY DIAGNOSTIC [74925 (CPT )] [facility] Comment on above: ESOPHAGOGASTRODUODENOSCOPY DIAGNOSTIC [4 3235 (CPT )] Start: 09-26-2024 End: 09-26-2024 Esophagogastroduodenoscopy transoral diagnostic ESOPHAGOGASTRODUODENOSCOPY DIAGNOSTIC ross's esophagus 09/26/2024 12:30 PM EST [facility] Start: 09-26-2024 Subsequent hospital visit by physician 09/26/2024 12:30 PM EST Hospital Encounter [facility] [address] [facility] [phone] Daniel Guerrero, DO [address] [place] [address] [facility] Start: 09-25-2024 End: 09-25-2024 ambulatory 09/25/2024 3:40 PM EST Suppo rt Visit [facility] - Pre Admit [address] [place] [phone] [facility] - Pre Admit Start: 09-24-2024 End: 09-24-2024 ambulatory 09/24/2024 9:30 AM EST Infusion Elida Ireland [facility] - Medical Oncology [address] [place] [address] Elida Ireland [facility]cology Start: 09-17-2024 End: 09-17-2024 ambulatory 09/17/2024 9:30 AM EST Infusion Elida Ireland [facility] Oncology [address] [place] [phone] Elida Ireland [facility] Start: 09-10-2024 End: 09-10-2024 ambulatory 09/10/2024 9:30 AM EDT Infusion Elida Ireland [facility] Medical Oncology [address] [place] [phone] Elida L Beka [facility] Oncology Start: 09-03-2024 End: 09-03-2024 ambulatory 09/03/2024 9:30 AM EDT Infusion Elida Ireland [facility] Oncology [address] [place] [phone] Elida Acen [facility] Oncology Start: 08-27-2024 End: 08-27-2024 ambulatory 08/27/2024 9:30 AM EDT Infusion Elida Ireland [facility] Oncology [address] [place] [phone] Elida Merritt Beka [facility] Start: 08-20-2024 End: 08-20-2024 ambulatory 08/20/2024 9:30 AM EDT Infusion Elida Ireland [facility] [address] [place] [phone] Elida L Beka [facility] Start: 07-24-2024 Fall Risk Screening Fall Risk Screening [facility] Start: 07-13-2024 COVID-19 Vaccine () COVID-19 Vaccine () [facility] Start: 07-13-2024 COVID-19 Vaccine ( season) COVID-19 Vaccine () [facility] Start: 05-27-2024 End: 05-27-2024 Patient encounter procedure 05/27/2024 1:30 PM EDT Off ice Visit [facility] [address] [place] [address] Fernie Hackett, DO [address], [place] [address] [facility] Start: 03-05-2024 End: 03-05-2024 ambulatory 03/05/2024 9:30 AM EDT Infusion Elida Acen [facility] - Medical Oncology [address] [place] [phone] Elida L Beka [facility] Start: 02-27-2024 End: 02-27-2024 ambulatory 02/27/2024 9:30 AM EDT Infusion Elidarudolph Ireland [facility] Oncology [address] [place] [phone] Elida L Beka [facility] Start: 02-25-2024 End: 02-25-2024 Patient encounter procedure 02/25/2024 2:45 PM EDT Off ice Visit [facility] [address] [place] [address] Fernie Hackett, DO [address] [place] [address] [facility] Start: 02-20-2024 End: 02-20-2024 ambulatory 02/20/2024 9:30 AM EDT Infusion Elida Acen [facility]cology [address] [place] [phone] Elida L Beka [facility] Start: 02-13-2024 End: 02-13-2024 ambulatory 02/13/2024 9:30 AM EDT Infusion Elida Ireland [facility] Oncology [facility] [place] [address] Elida Ireland [facility] Start: 02-06-2024 End: 02-06-2024 ambulatory 02/06/2024 9:30 AM EDT Infusion Elida Ireland [facility] [address] [place] [phone] Elida Ireland [facility] Start: 01-30-2024 End: 01-30-2024 ambulatory 01/30/2024 9:30 AM EDT Infusion Elida Ireland [facility]cology [address] [place] [phone] Elida Ireland [facility] Start: 01-23-2024 End: 01-23-2024 ambulatory 01/23/2024 9:30 AM EDT Infusion Elida Ireland [facility] [address] [place] [phone] Elida Ireland [facility] Start: 01-16-2024 End: 01-16-2024 ambulatory 01/16/2024 9:30 AM EST Infusion Elida Ireland [facility] [address] [place] [phone] Elida Ireland [facility] Start: 01-09-2024 End: 01-09-2024 ambulatory 01/09/2024 9:30 AM EST Infusion Elida Ireland [facility] [address] [place] [phone] Elida Ireland [facility] Start: 01-08-2024 End: 01-08-2024 Patient encounter procedure 01/08/2024 1:00 PM EST Off ice Visit [facility] [address] [place] [address] [facility] Start: 01-02-2024 End: 01-02-2024 ambulatory 01/02/2024 9:30 AM EST Infusion Elida L Beka [facility] [address] [place] [phone] Elida L Beka [facility] Start: 12-26-2023 End: 12-26-2023 ambulatory 12/26/2023 9:30 AM EST Infusion Elida L Beka [facility] [address] [place] [phone] Elida L Beka [facility] Start: 12-19-2023 End: 12-19-2023 ambulatory 12/19/2023 9:30 AM EST Infusion Elida L Beka [facility] Oncology [address] [place] [phone] Elida René Beka [facility] Start: 12-12-2023 Administration of varicella zoster vaccine Zoster (Shingles) Vaccine (1 of 2) [employer] Comment on above: Postponed from 03/12/2015 (Patient Refus ed) Start: 12-12-2023 Medicare Annual Wellness Visit Medicare Annual Wellness Visi t [facility] Start: 12-12-2023 End: 12-12-2023 ambulatory 12/12/2023 9:30 AM EST Infusion Elida L Beka [facility] Oncology [address] [place] [phone] Elida L Beka [facility] Start: 12-05-2023 End: 12-05-2023 ambulatory 12/05/2023 9:30 AM EST Infusion Elida L Beka [facility] [address] [place] [phone] Elida L Beka [facility] Start: 11-28-2023 End: 11-28-2023 ambulatory 11/28/2023 9:30 AM EST Infusion Elida L Beka [facility] [address] [place] [phone] Elida René Beka [facility] Start: 11-26-2023 End: 11-26-2023 Patient encounter procedure 11/26/2023 1:30 PM EST Off ice Visit [facility] [address] [place] [address] Fernie Hackett DO [address], [place] [address] [facility] Start: 11-21-2023 End: 11-21-2023 ambulatory 11/21/2023 9:30 AM EST Infusion Elidarudolph Ireland [facility] Oncology [facility] [place] [phone] Elida Ireland [facility] Start: 07-13-2023 COVID-19 Vaccine ( season) COVID-19 Vaccine () [facility] MD [employer] [facility] Start: 03-12-2015 Administration of varicella zoster vaccine Zoster (Shingles) Vacc[facility] (1 of 2) [facility] Start: 1958 Adult BMI Follow Up Plan Adult BMI Follow [facility] Plan [facility] End: 11-21-2024 Comprehensive metabolic 2000 panel - Serum or Plasma Comprehensive metabolic panel Lab Routine Essential hypertension 1 Occurrences starting 11/21/2023 until 11/21/2024 [employer] Work Phone: Comment on above: 1 Occurrences starting 11/21/2023 until 11/21/2024 End: 09-04-2025 EMG EMG Neurology Routine Paresthesia of right lower extremity 1 Occurrences starting 09/04/2024 until 09/04/2025 [employer] Work Phone: Comment on above: 1 Occurrences starting 09/04/2024 until 09/04/2025 End: 09-04-2025 Esophagogastroduodenoscopy EGD GI Routine Ross's esophagus with dysplasia 1 Occurrences starting 09/04/2024 until 09/04/2025 [employer] Comment on above: 1 Occurrences starting 09/04/2024 until 09/04/2025 Esophagogastroduoden oscopy transoral diagnostic ESOPHAGOGASTRODUODENOSCOPY DIAGNOSTIC 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 [facility] End: 11-21-2024 Hemoglobin A1c/Hemoglobin.total in Blood Hemoglobin A1c Lab Routine Type 2 diabetes mellitus with stage 3b chronic kidney disease, with long-term current use of insulin [place] 1 Occurrences starting 11/21/2023 until 11/21/2024 [employer] Comment on above: 1 Occurrences starting 11/21/2023 until 11/21/2024 End: 11-21-2024 Lipid panel Lipid panel Lab Routine Mixe d hyperlipidemia 1 Occurrences starting 11/21/2023 until 11/21/2024 [employer] Comment on above: 1 Occurrences starting 11/21/2023 until 11/21/2024 End: 11-18-2025 Magnesium [Mass/volume] in Serum or Plasma Magnesium Lab Routine Hypomagnesemia weekly for 52 Occurrences starting 11/18/2024 until 11/18/2025 [employer] Work Phone: Comment on above: weekly for 52 Occurrences starting 11/18 until 11/18/2025 End: 11-21-2024 Microalbumin - Albumin: Creatinine Urine Ratio Microalbumin - Albumin: Creatinine Urine Ratio Lab Routine Type 2 diabetes mellitus with stage 3b chronic kidney disease, with long-term current use of insulin [place] 1 Occurrences starting 11/21/2023 until 11/21/2024 [employer] Comment on above: 1 Occurrences starting 11/21/2023 until 11/21/2024 End: 01-16-2025 Potassium [Moles/volume] in Serum or Plasma Potassium Lab Routine 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 [place] 1 Occurrences starting 01/17/2024 until 01/16/2025 [employer] Work Phone: Comment on above: 1 Occurrences starting 01/17/2024 until 01/16/2025 Renal function 2000 panel - Serum or Plasma [facility] Immunizations Immunization Date Immunization Notes Care Provider [facility] 08-31-2021 Influenza, High-dose , Quadrivalent Fernie Hackett DO Work Phone: [employer] 02-01-2021 COVID-19, mRNA, LNP- S, PF, 30mcg/0.3mL Dose Fernie Furlong DO Work Phone: [facility] 01-10-2021 COVID-19, mRNA, LNP- S, PF, 30mcg/0.3mL Dose Fernie Furlong DO Work Phone: [facility] 07-29-2020 influenza, high dose seasonal, preservative-free Fernie Furlong DO Work Phone: [facility] 09-03-2019 influenza, high dose seasonal, preservative-free Fernie Furlong DO Work Phone: [facility] 09-30-2018 tetanus toxoid, redu kiran diphtheria toxoid, and acellular pertussis vaccine, adsorbed Fernie Furlong DO Work Phone: [facility] 09-19-2018 influenza, high dose seasonal, preservative-free Fernie Furlong DO Work Phone: [facility] 09-03-2017 influenza virus vacc ine, unspecified formulation Fernie Furlong DO Work Phone: [facility] 07-27-2015 influenza, seasonal, injectable, preservative free Fernie Furlong DO Work Phone: [facility] 07-27-2015 seasonal influenza, intradermal, preservative free Fernie Furlong DO Work Phone: [facility] 01-15-2015 zoster vaccine, live Fernie Furlong DO Work Phone: [facility] 01-15-2015 zoster vaccine, unspecified formulation Fernie Furlong DO Work Phone: [facility] 07-16-2014 influenza, seasonal, injectable Fernie Furlong DO Work Phone: [facility] 10-20-2013 pneumococcal conjuga te vaccine, 13 valent Fernie Furlong DO Work Phone: [facility] 08-30-2011 tetanus and diphther ia toxoids, not adsorbed, for adult use Fernie Hackett DO Work Phone: [facility] 08-20-2008 pneumococcal polysaccharide vaccine, 23 valent Fernie Hackett DO [facility] Payers Date Payer Category Payer Unknown 11-12-2015 Managed Care Other (unspecified) [facility] [id number] 11-12-2015 Private Health Insurance [facility] AARP SUPPLEMENT [id number] 11/12/2015-Present [phone] [address] [place] [address] [id number] 09-12-2007 Medicare [id number]. 1.13.424.2 .[id number] 11-12-1959 Medicare [id number] 11-12-1959 Unknown [id number] 1942 Unknown [id number] 2.16.840.1.130121.3.579.2 .647 1942 Unknown [id number] 2.16.840.1.609013.3.579.2 .593 1942 Unknown [id number] 2.16.840.1.265512.3.579.2 .593 1942 Unknown [id number] 2.16.840.1.924943.3.579.2 .593 1942 Unknown [id number] 2.16.840.1.196764.3.579.2 .593 1942 Unknown [id number] 2.16.840.1.365275.3.579.2 .593 1942 Unknown [id number] 2.16.840.1.364203.3.579.2 .593 1942 Unknown [id number] 2.16.840.1.820723.3.579.2 .593 1942 Unknown [id number] 2.16.840.1.006243.3.579.2 .593 1942 Unknown [id number] 2.16.840.1.965764.3.579.2 .593 1942 Unknown [id number] 2.16.840.1.424311.3.579.2 .593 1942 Unknown [id number] 2.16.840.1.920774.3.579.2 .593 1942 Unknown [id number] 2.16.840.1.117606.3.579.2 .1286 1942 Unknown [id number] 2.16.840.1.533026.3.579.2 .1286 1942 Unknown [id number] 2.16.840.1.971142.3.579.2 .128 1942 Unknown [id number] 2.16.840.1.450572.3.579.2 .1286 1942 Unknown [id number] 2.16.840.1.957340.3.579.2 .1286 1942 Unknown [id number] 2.16.840.1.308547.3.579.2 .1286 1942 Unknown [id number] 2.16.840.1.696141.3.579.2 .1286 1942 Unknown [id number] 2.16.840.1.976342.3.579.2 .1942 Unknown [id number] 2.16.840.1.263215.3.579.2 .1942 Unknown [id number] 2.16.840.1.944049.3.579.2 .1942 Unknown [id number] 2.16.840.1.715735.3.579.2 .1942 Unknown [id number] 2.16.840.1.612122.3.579.2 .1285 1942 Unknown [id number] 2.16.840.1.007385.3.579.2 .1285 1942 Unknown [id number] 2.16.840.1.182230.3.579.2 .1285 1942 Unknown [id number] 2.16.840.1.766724.3.579.2 .1285 1942 Unknown [id number] 2.16.840.1.958676.3.579.2 .1285 1942 Unknown [id number] 2.16.840.1.736015.3.579.2 .1285 1942 Unknown [id number] 2.16.840.1.662191.3.579.2 .1285 1942 Unknown [id number] 2.16.840.1.345273.3.579.2 .1285 1942 Unknown [id number] 2.16.840.1.170141.3.579.2 .1285 1942 Unknown [id number] 2.16.840.1.044728.3.579.2 .1285 1942 Unknown [id number] 2.16.840.1.321371.3.579.2 .1285 1942 Unknown [id number] 2.16.840.1.876335.3.579.2 .1285 1942 Unknown [id number] 2.16840.1.456802.3.579.2 .1285 1942 Unknown [id number] 2.16840.1.138730.3.579.2 .1285 1942 Unknown [id number] 2.840.1.384108.3.579.2 .1285 1942 Unknown [id number] 2.840.1.692603.3.579.2 .1285 1942 Unknown [id number] 2.840.1.033430.3.579.2 .1285 1942 Unknown [id number] 2.840.1.385880.3.579.2 .1285 1942 Unknown [id number] 2.840.1.734235.3.579.2 .1285 1942 Unknown [id number] 2.840.1.189100.3.579.2 .1285 1942 Unknown [id number] 2.840.1.983504.3.579.2 .1285 1942 Unknown [id number] 2.840.1.071018.3.579.2 .1285 1942 Unknown [id number] 2.840.1.230941.3.579.2 .1285 1942 Unknown [id number] 2.16840.1.356149.3.579.2 .1285 1942 Unknown [id number] 2.16840.1.333097.3.579.2 .1285 1942 Unknown [id number] 2.16840.1.251849.3.579.2 .1285 1942 Unknown [id number] 2.16.840.1.671291.3.579.2 .1285 1942 Unknown [id number] 2.16.840.1.221913.3.579.2 .1285 1942 Unknown [id number] 2.16.840.1.198246.3.579.2 .1285 1942 Unknown [id number] 2.16.840.1.540847.3.579.2 .1285 1942 Unknown [id number] 2.16.840.1.508053.3.579.2 .1285 1942 Unknown [id number] 2.840.1.414883.3.579.2 .1285 1942 Unknown [id number] 2.840.1.687211.3.579.2 .1285 1942 Unknown [id number] 2.840.1.976774.3.579.2 .1285 1942 Unknown [id number] 2.840.1.870217.3.579.2 .1285 1942 Unknown [id number] 2.840.1.848941.3.579.2 .1285 1942 Unknown [id number] 2.840.1.806927.3.579.2 .1285 1942 Unknown [id number] 2.840.1.208044.3.579.2 .1285 1942 Unknown [id number] 2.16840.1.928702.3.579.2 .1285 1942 Unknown [id number] 2.16.840.1.073342.3.579.2 .1285 1942 Unknown [id number] 2.16.840.1.132777.3.579.2 .1285 1942 Unknown [id number] 2.16.840.1.450121.3.579.2 .128 1942 Unknown [id number] 2.16.840.1.956392.3.579.2 .1285 1942 Unknown [id number] 2.16.840.1.983401.3.579.2 .1285 1942 Unknown [id number] 2.16.840.1.482626.3.579.2 .1285 1942 Unknown [id number] 2.16.840.1.077295.3.579.2 .1285 1942 Unknown [id number] 2.16.840.1.657636.3.579.2 .1285 1942 Unknown [id number] 2.16.840.1.826399.3.579.2 .1285 1942 Unknown [id number] 2.840.1.138987.3.579.2 .1285 1942 Unknown [id number] 2.16.840.1.866945.3.579.2 .1285 1942 Unknown [id number] 2.16.840.1.650825.3.579.2 .1285 1942 Unknown [id number] 2.16.840.1.374614.3.579.2 .1285 1942 Unknown [id number] 2.16840.1.078537.3.579.2 .1285 1942 Unknown [id number] 2.16840.1.581107.3.579.2 .1285 1942 Unknown [id number] 2.16.840.1.579885.3.579.2 .1285 1942 Unknown [id number] 2.16.840.1.319317.3.579.2 .1285 1942 Unknown [id number] 2.16.840.1.469344.3.579.2 .1285 1942 Unknown [id number] 2.16.840.1.609377.3.579.2 .1285 1942 Unknown [id number] 2.16.840.1.347219.3.579.2 .1285 1942 Unknown [id number] 2.16.840.1.617537.3.579.2 .1285 1942 Unknown [id number] 2.16.840.1.499176.3.579.2 .1285 1942 Unknown [id number] 2.16.840.1.261741.3.579.2 .1285 1942 Unknown [id number] 2.16.840.1.217634.3.579.2 .1285 1942 Unknown [id number] 2.16.840.1.289065.3.579.2 .1285 1942 Unknown [id number] 2.16.840.1.646000.3.579.2 .1285 1942 Unknown [id number] 2.16.840.1.894514.3.579.2 .1285 1942 Unknown [id number] 2.16.840.1.087649.3.579.2 .1285 1942 Unknown [id number] 2.16.840.1.236796.3.579.2 .1285 1942 Unknown [id number] 2.16.840.1.707940.3.579.2 .1285 1942 Unknown [id number] 2.16.840.1.141073.3.579.2 .1285 1942 Unknown [id number] 2.16.840.1.331615.3.579.2 .1285 1942 Unknown [id number] 2.16.840.1.398310.3.579.2 .1285 1942 Unknown [id number] 2.16.840.1.064730.3.579.2 .1285 1942 Unknown [id number] 2.16.840.1.723068.3.579.2 .1285 1942 Unknown [id number] 2.16.840.1.640638.3.579.2 .1285 1942 Unknown [id number] 2.16.840.1.855930.3.579.2 .1285 1942 Unknown [id number] 2.16.840.1.838628.3.579.2 .1285 1942 Unknown [id number] 2.16.840.1.610539.3.579.2 .1285 1942 Unknown [id number] 2.16.840.1.838058.3.579.2 .1285 1942 Unknown [id number] 2.16.840.1.317361.3.579.2 .1285 1942 Unknown [id number] 2.16.840.1.201359.3.579.2 .1285 1942 Unknown [id number] 2.16.840.1.127798.3.579.2 .1285 1942 Unknown [id number] 2.16.840.1.051748.3.579.2 .1285 1942 Unknown [id number] 2.16.840.1.549970.3.579.2 .1285 1942 Unknown [id number] 2.16.840.1.757031.3.579.2 .1285 1942 Unknown [id number] 2.16.840.1.980542.3.579.2 .1285 1942 Unknown [id number] 2.16.840.1.998787.3.579.2 .1285 1942 Unknown [id number] 2.16.840.1.363850.3.579.2 .1286 1942 Unknown [id number] 2.16.840.1.888182.3.579.2 .1286 1942 Unknown [id number] 2.16.840.1.707763.3.579.2 .1286 1942 Unknown [id number] 2.16.840.1.018999.3.579.2 .1286 1942 Unknown [id number] 2.16.840.1.153738.3.579.2 .1286 1942 Unknown [id number] 2.16.840.1.352144.3.579.2 .1286 1942 Unknown [id number] 2.16.840.1.376948.3.579.2 .1286 Private Health [facility] [id number] Self-pay Self Pay [id number] Social History Date Type Detail Facility Unknown if ever smoked [facility] Other Start: 10-18-2023 End: 01-08-2024 Sex Assigned At [facility] Start: 05-04-2017 End: 05-01-2024 Tobacco smoking status NHIS Never smoked tobacco [facility] Start: 05-04-2017 Tobacco use and exposure Smokeless tobacco non-user [facility] Start: 10-18-2023 End: 02-25-2024 Alcohol intake Current drinker of alcohol (finding) [facility] Start: 10-18-2023 End: 01-08-2024 Alcohol intake [facility] Adolescent depressio n screening assessment 0 [facility] Start: 1940 Sex Assigned At Not on file P [facility] Start: 1940 Sex Assigned At Female F [facility] Has the XZER[employer], or Utility [employer] threatened to shut off services in your home in past 12Mo No [facility] Are you now , , , , never or living with a partner? [facility] How often to you hav e a drink containing alcohol? Never [facility] Do you feel stress - tense, restless, nervous, or anxious, or unable to sleep at night because your mind is troubled all the time - these days [OSQ] Not at all [facility] Start: 06-17-2015 End: 11-21-2024 Sex Female (finding) [facility] Start: 09-26-2024 End: 09-30-2024 Alcoholic beverage intake Ex-drinker (finding) [facility] Medical Equipment Procedure Code Equipment Code Equipment Origin al Text Equipment Identifier Dates 1 strip by other route in the morning and 1 strip before bedtime. [id number] Start: 08-30-2023 End: 11-18-2024 1 Lancet. by miscellaneous route in the morning and 1 Lancet. before bedtime. [id number] Start: 08-30-2023 USE 1 NEEDLE THR EE TIMES A DAY [id number] Start: 07-23-2023 USE 1 NEEDLE THR EE TIMES A DAY [id number] Start: 07-17-2024 1 strip by other route in the morning and 1 strip before bedtime. [id number] Start: 11-18-2024 Clinical Notes 12-27-2021 to 12-02-2024 Telephone Encounter - Elba Bae CMA - 12/02/2024 10:16 AM ESTTelephone Encounter - Fernie Hackett DO - 12/02/2024 10:16 AM ESTTelephone Encounter - Jennifer Vale - 12/01/2024 2:12 AM EST Note Date & Type Note Facility 12-02-2024 Miscellaneous Notes Fanny the nurse at the [facility] called and stated you were in yesterday evening and stated they had aske for a refill for tramodol and the lyrica be sent to the [facility] pharmacy. Also you had discontinued the trazadone and never put an order in. Do you still want this D/C? If so did you want something in replace of it? Also she is very lethargic today. It could not find any order sheets so I gave a verbal order to stop the trazodone to the nurse. I also asked her if she needed any of her controlled substances and she said no. I did send in a prescription to [facility] pharmacy in [place]. If it is a different synchrony then I need to resend it somewhere else Spoke with Fanny and she will follow up with Pharmacy documented in this encounter [facility] 12-02-2024 Telephone encounter Note Fanny the nurse at the [facility] called and stated you were in yesterday evening and stated they had aske for a refill for tramodol and the lyrica be sent to the [facility] pharmacy. Also you had discontinued the trazadone and never put an order in. Do you still want this D/C? If so did you want something in replace of it? Also she is very lethargic today. [facility] 12-02-2024 Telephone encounter Note It could not find any order sheets so I gave a verbal order to stop the trazodone to the nurse. I also asked her if she needed any of her controlled substances and she said no. I did send in a prescription to [facility] pharmacy in [place]. If it is a different synchrony then I need to resend it somewhere else [facility] 12-02-2024 Telephone encounter Note Spoke with Fanny and she will follow up with Pharmacy [facility] 12-01-2024 Miscellaneous Notes Contract: [facility] to hospital for evaluation OC198 I called Dr Hackett & transferred him to [facility] documented in this encounter [facility] 12-01-2024 Telephone encounter Note Contract: 198 Joanie @ [facility] called for orders to have patient sent to hospital for evaluation [facility] 12-01-2024 Telephone encounter Note OC198 I called Dr Hackett & transferred him to [facility] 11-24-2024 History of Presen t illness Narrative Patient's spouse called [facility] nurse this morning with concerns [...] possible. Please advise. documented in this encounter [facility] 11-24-2024 Miscellaneous Notes Patient's spouse called [facility] nurse this morning with concerns [...] be septic Notified [facility] 11-24-2024 Telephone encounter Note Patient's spouse called [facility] nurse this morning with concerns [...] today by PCP if possible. Please advise. [facility] 11-24-2024 Telephone encounter Note She has altered mental status she should go to the emergency room. She could be septic [facility] 11-24-2024 Telephone encounter Note Notified [facility] 11-17-2024 History of Presen t illness Narrative Diabetic Supplies: After numerous attempts by SN and MA we have been unable to get in touch with [facility] regarding patient diabetes supplies. Patient is currently out of test strips and would like order sent to new DME supplier. Could you please fax order to [facility] for [employer] meter and strips. Fax number: [phone]. [facility] Chronic Care Nurse [employer] [phone] documented in this encounter [facility] 11-17-2024 Miscellaneous Notes Diabetic Supplies: After numerous attempts by and JARON we have been unable to get in touch with [facility] regarding patient diabetes supplies. Patient is currently out of test strips and would like order sent to new DME supplier. Could you please fax order to [facility] for [employer] meter and strips. Fax number: [phone]. [facility] Chronic Care Nurse [employer] [phone] Please fax to [facility]. Prescriptions were printed documented in this encounter [facility] 11-17-2024 Telephone encounter Note Diabetic Supplies: After numerous attempts by and JARON we have been unable to get in touch with [facility] regarding patient diabetes supplies. Patient is currently out of test strips and would like order sent to new DME supplier. Could you please fax order to [facility] for [employer] meter and strips. Fax number: [phone]. [facility] Chronic Care Nurse [employer] [phone] [facility] 11-17-2024 Telephone encounter Note Please fax to [facility]. Prescriptions were printed [facility] 11-04-2024 History of Presen t illness Narrative Patient is here for 2g IV magnesium as scheduled. Mg level 1.7. PIV initiated, blood return noted, flushes with ease. NS started at KVO. Magnesium infused over 2 hours. Line flushed. Pt tolerated well. PIV dc'd, pressure dressing applied. Pt dc'd in stable ambulatory condition with spouse. documented in this encounter [facility] 10-20-2024 History of Presen t illness Narrative Patient mag level is 1.9, will not need magnesium infusion this week. Patient made aware and will continue on with next week's lab draw. documented in this encounter [facility] 10-07-2024 Miscellaneous Notes Call patient and see if she requested this. It was stopped in the summertime documented in this encounter [facility] 10-07-2024 Telephone encounter Note Call patient and see if she requested this. It was stopped in the summertime [facility] 10-07-2024 History of Presen t illness Narrative Patient is here for 2g IV magnesium as scheduled. Mg level 1.7. PIV initiated, blood return noted, flushes with ease. NS started at KVO. Magnesium infused over 2 hours. Line flushed. Pt tolerated well. PIV dc'd, pressure dressing applied. Pt dc'd in stable ambulatory condition with spouse. documented in this encounter [facility] 10-01-2024 History of Presen t illness [...] updated treatment calendar. documented in this encounter [facility] 09-10-2024 Miscellaneous Notes NEW EMG/NCV ORDER First attempt- Left Voicemail Dx: Paresthesia of right lower extremity [R20.2]/ Referred by: Fernie Hackett DO Referred to: Please schedule patient in the next available appointment with provider. Patient returned call and patient was scheduled for next available EMG in [place]. Patient was placed on waitlist. Appointment: 12/15/2024 at 12:30pm with Dr. Urbano documented in this encounter [facility] 09-10-2024 Telephone encounter Note NEW EMG/NCV ORDER First attempt- Left Voicemail Dx: Paresthesia of right lower extremity [R20.2]/ Referred by: Fernie Hackett DO Referred to: Please schedule patient in the next available appointment with provider. [facility] 09-10-2024 Telephone encounter Note Patient returned call and patient was scheduled for next available EMG in [place]. Patient was placed on waitlist. Appointment: 12/15/2024 at 12:30pm with Dr. Urbano [facility] 09-10-2024 History of Presen t illness Narrative Pt here for 2g IV magnesium. Mg level 1.7. PIV initiated to RFA. Brisk blood return verified, and flushes with ease. Magnesium infused over 2 hours without incident. Pt tolerated well. Flushed with saline and PIV dc'd. Pt dc'd in stable ambulatory condition. documented in this encounter [facility] 09-01-2024 History of Presen t illness Narrative Pt magnesium level 1.8. called to notify patient to see if shed like to notify dr medina office to see if she should still get mg infusion since she's WNL. Pt requests to take the week off and recheck mg level in one week. documented in this encounter [facility] 08-27-2024 History of Presen t illness Narrative Patient is here for 2g IV magnesium as scheduled. Mg level 1.6. PIV initiated, blood return noted, flushes with ease. NS started at KVO. Magnesium infused over 2 hours. Line flushed. Pt tolerated well. PIV dc'd, pressure dressing applied. Pt dc'd in stable ambulatory condition with spouse. documented in this encounter [facility] 08-22-2024 History of Presen t illness Narrative When was the last Refill? 05/27/24 Is this medication Historical? [place] of preferred Pharmacy? [facility] When was the last OV with provider? 05/27/24 When is the next scheduled visit? 11/27/24 documented in this encounter [facility] 08-20-2024 History of Presen t illness Narrative Pt here for 2g IV magnesium. Mg level 1.6. PIV initiated to RFA. Brisk blood return noted, flushes with ease. Magnesium infused over 2 hours. Line flushed. Pt tolerated well. PIV dc'd. Pressure dressing applied. Dc'd in stable ambulatory condition. documented in this encounter [facility] 08-13-2024 History of Presen t illness Narrative Pt here for 2g IV magnesium per pt reqeust. Mg level 1.6. PIV initiated to LFA. Brisk blood return noted, flushes with ease. NS started at KVO. Magnesium infused over 2 hours. Pt tolerated well. PIV dc'd. Pressure dressing applied. Dc'd in stable ambulatory condition. documented in this encounter [facility] 02-25-2024 History of Presen t illness Narrative Subjective Patient ID: Adore Dugan is a 83 y.o. female. Adore presents for a dxef-eg-xqko visit to try to get pads for urinary incontinence. It is a relatively new problem which is getting worse. She gets the urge to go and then can not get to the bathroom in time and has accidents. There also other times where she loses control with movement and coughing. She uses about 12 a day. She changes them about every 2 hours. She had a fall recently. She was trying to pull something out of the Fridge and her knee started to give out. The item gave way and she fell backwards. She hit the back of her head. She could not get up on her own. Her could not get her up either. She had to have her son come over to help her up. After a while she started to have a headache and decided to go to the emergency room and get checked out. She had a CT scan done. Did show enlarged ventricles and consideration should be given for normal pressure hydrocephalus. She does admit did show her memory isn't as good as it used to be. The following portions of the patient's history were reviewed and updated as appropriate: allergies, current medications, past family history, past medical history, past social history, past surgical history, problem list, and medication reconciliation was completed including current medication and post discharge medication. Review of Systems Constitutional: Negative. Respiratory: Negative. Genitourinary: Positive for difficulty urinating, frequency and urgency. Musculoskeletal: Positive for gait problem (She ambulates with a walker). Psychiatric/Behavioral: Negative. Objective Physical Exam Vitals reviewed. Exam conducted with a jammer operator present (). Constitutional: Appearance: She is morbidly obese. Cardiovascular: Rate and Rhythm: Normal rate and regular rhythm. Pulses: Normal pulses. Heart sounds: Normal heart sounds. No murmur heard. Pulmonary: Effort: Pulmonary effort is normal. No respiratory distress. Breath sounds: Normal breath sounds. No wheezing. Abdominal: General: Bowel sounds are normal. Palpations: Abdomen is soft. Tenderness: There is no abdominal tenderness. Neurological: General: No focal deficit present. Mental Status: She is alert and oriented to person, place, and time. Assessment/Plan Adore was seen today for face to face for incont supplies. Diagnoses and all orders for this visit: Urinary incontinence, unspecified type - diaper,brief,adult,disposable (ALWAYS DISCREET) misc; 1 Unit by miscellaneous route every 2 (two) hours as needed (incontinence). Seems have a mixed urinary incontinence urge and stress components. She would like disposable pads. She does not think she could get briefs on that frequently. Abnormality of gait and mobility We did discuss the CT findings of enlarged ventricles and consideration should be given to NPH. She defers a neurologic consultation and another diuretic. She can call if she changes her mind and now make a referral. documented in this encounter [facility] 02-25-2024 History of Presen t illness Narrative Patient and were updated on normal magnesium level of 1.9. She is still very bruised on her arms and wishes to continue to hold infusions at this time since level is normal to allow her arms/veins time to be less bruised. She will continue to have weekly lab checks completed. documented in this encounter [facility] 02-20-2024 History of Presen t illness Narrative Received call back from Dr. Munoz's office. Instructed to hold magnesium infusions at this time. Will update patient and have pt continue to have labs checked to monitor. documented in this encounter [facility] 02-13-2024 History of Presen t illness [...] stable ambulatory condition. documented in this encounter [facility] 02-06-2024 History of Presen t illness Narrative Pt here for 2g IV magnesium as scheduled for mg level 1.8. Tolerating infusions well. PIV initiated to RFA. Brisk blood return noted, flushes with ease. NS started at KVO. Magnesium infused over 2 hours. Pt tolerated well. PIV dc'd, pressure dressing applied. Pt dc'd in stable ambulatory condition. documented in this encounter [facility] 01-30-2024 History of Presen t illness Narrative Patient is here for 2g IV magnesium as scheduled. Mg level 1.8. PIV initiated, blood return noted, flushes with ease. NS started at KVO. Magnesium infused over 2 hours. Line flushed. Pt tolerated well. PIV dc'd, pressure dressing applied. Pt dc'd in stable ambulatory condition with spouse. documented in this encounter [facility] 01-23-2024 History of Presen t illness Narrative Patient is here for 2g IV magnesium as scheduled. Mg level 1.7. PIV initiated on second attempt, blood return noted, flushes with ease. NS started at KVO. Magnesium infused over 2 hours. Line flushed. Pt tolerated well. PIV dc'd, pressure dressing applied. Pt dc'd in stable ambulatory condition with spouse. documented in this encounter [facility] 01-16-2024 History of Presen t illness [...] of upcoming appointments. documented in this encounter [facility] 01-09-2024 History of Presen t illness Narrative Pt here for 2g IV magnesium for mg level of 1.7. Tolerating infusions well. PIV initiated to RFA. Brisk blood return, flushes with ease. NS started at KVO. Magnesium infused over 2 hours. Pt tolerated well. PIV flushed and dc'd. Pressure dressing applied. Dc'd in stable condition. documented in this encounter [facility] 01-08-2024 History of Presen t illness [...] Do you have a durable power of health care attorney?: Yes Cognitive Screening Do you have [...] year (around 01/08/2025). documented in this encounter [facility] 01-02-2024 History of Presen t illness Narrative Patient is here for 2g IV magnesium as scheduled. Mg level 1.7. PIV initiated on third attempt, blood return noted, flushes with ease. NS started at KVO. Magnesium infused over 2 hours. Line flushed. Pt tolerated well. PIV dc'd, pressure dressing applied. Pt dc'd in stable ambulatory condition with spouse. documented in this encounter [facility] 12-26-2023 History of Presen t illness Narrative Pt here for 2g IV magnesium infusion as scheduled. Mg level 1.6. Tolerating infusions well. PIV initiated to RFA. Brisk blood return noted, flushes with ease. NS started at KVO. Magnesium infused over 2 hours. Pt tolerated well. Line flushed. PIV dc'd. Pressure dressing applied. Pt v/u of future appointments. documented in this encounter [facility] 12-19-2023 History of Presen t illness Narrative Pt here for 4g IV magnesium infusion as scheduled. Mg level 1.5. Tolerating infusions well. PIV initiated to LFA. Brisk blood return noted, flushes with ease. NS started at KVO. Magnesium infused over 4 hours. Pt tolerated well. Line flushed. PIV dc'd. Pressure dressing applied. Pt v/u of future appointments. documented in this encounter [facility] 12-12-2023 History of Presen t illness Narrative Patient is here for 2g IV magnesium as scheduled. Mg level 1.7. PIV initiated blood return noted, flushes with ease. NS started at KVO. Magnesium infused over 2 hours. Line flushed. Pt tolerated well. PIV dc'd, pressure dressing applied. Pt dc'd in stable ambulatory condition with spouse. documented in this encounter [facility] 12-04-2023 Miscellaneous Notes Patient called and these are both covered by insurance and she would like these sent in instead of what the alternative was documented in this encounter [facility] 12-04-2023 Telephone encounter Note Patient called and these are both covered by insurance and she would like these sent in instead of what the alternative was [facility] 11-28-2023 History of Presen t illness Narrative Patient here for 2g IV magnesium as scheduled. Mg level 1.8. PIV initiated to LFA Brisk blood return noted, flushes with ease. NS started at KVO. Magnesium infused over 2 hours. Line flushed. Pt tolerated well. PIV dc'd, pressure dressing applied. Pt dc'd in stable ambulatory condition with spouse. [facility] 11-21-2023 History of Presen t [...] Treatment calendar provided. documented in this encounter [facility] 11-19-2023 Note Continue statin [facility] 11-19-2023 Note Hypertension is elev ated in office today was 192/86 and repeat b/p improved 158/80 Typically b/p is 122-150/60-80 at home and at other physician offices. Continue all meds ramipril, coreg [facility] 11-19-2023 Note Coronary artery dise ase is stable Continue GDMT- ASA, lipitor, coreg continue risk factor modifications- heart healthy diet, regular exercise as tolerated and continue all medications. [facility] 11-19-2023 Note Patient here for 1 y ear follow up CAD, hypertension, and venous insufficiency. Had labs a week or so ago for cub reporter and says she's in the process of [...] All other systems reviewed and are negative. [facility] 11-19-2023 Note [facility] CARDIOLOGY PROGR ESS [...] labs a week or so ago for cub reporter and says she's in the process of [...] 2.05, BUN 64, (more content not included)... [facility] 08-23-2023 Evaluation note Encounter Date Diagnosis [...] magnesium diet and provide information about it. [facility] 03-16-2023 NoteCONSULTATION CONSULTATION DATE: 01/25/2023 HISTORY: [...] and to talk with Dr. Munoz, their cub reporter, to confirm that this was acceptable, considering her stage 3 kidney disease. Other than that, we will see her in three months' time at the clinic, unless otherwise indicated. Patient and agree with this plan.[facility] 01-25-2023 Evaluation note* Encounter Date Diagnosis [...] magnesium diet and provide information about it. [facility] Chief Complaint: Patient being seen via telephone call for 6 mo follow up hypertension, CAD, and CKD. She denies chest pain and increased SOB with exertion. C/o increased LE edema but denies weight gain. Says her cub reporter Dr. Munoz advised her to call him [...] enzyme inhibitor/receptor micki. 4. Follow up with [facility] Cardiology in the next 2 to 3 [...] creatinine and electrolytes; she follows with her cub reporter Leg swelling is likely related to venous [...] was initiated by the patient and conducted [id number] with use of audio-only real time telephone communication between patient and provider for a virtual visit. Verbal consent to provide and bill for this service was obtained on 12/06/2022. No signature was obtained due to the COVID-19 pandemic. Moe Parham MD, MPH, [facility], [facility], [facility] Interventional Cardiology Pager Email: [email or web address] NoteCONSULTATION CONSULTATION DATE: 10/26/2022 HISTORY OF PRESENT ILLNESS: This is a very pleasant, 82-year-old female who presents with her for a three month follow up. Today, she reports 0/10 pain and is overall doing well. At her last appointment on 08/02/2022, we had switched her medications from Corinne to tramadol extended release 100 mg per day, which she feels is helping very much. It is lasting for her better than the Corinne. She is also on Lyrica 75 mg [...] indicated, and patient agrees with this plan.[id number] NoteCONSULTATION CONSULTATION DATE: 08/02/2022 HISTORY OF PRESENT ILLNESS: This is a pleasant, 81-year-old female, accompanied by her , returning to the clinic for a three month follow up for chronic lower back pain. She was last seen on 04/25/[address] Stern which, at that time, her Corinne was decreased to 5/325 daily p.r.n., which [...] increased to 100 mg extended release daily. Corinne will be discontinued. Education was given regarding use of the menthol heat rub with Voltaren gel and heat application to her back. Vitamin and nutrition importance was discussed. Patient will be seen back in the clinic in three months' time, unless otherwise indicated, and patient agrees to this.[id number] Evaluation note* Encounter Date Diagnosis Assessment Notes [...] any recent gout flare. She takes allopurinol. [facility] 06-22-2022 Evaluation note* Encounter Date Diagnosis Assessment Notes Treatment Notes Treatment Clinical Notes Apr, Hypertensive chronic kidney disease with stage 1 through stage 4 chronic kidney disease, or unspecified chronic kidney disease (ICD-10 - I12.9) [facility] 06-14-2022 NoteCONSULTATION CONSULTATION DATE: 04/25/2022 CHIEF [...] 4/10. She is managing the pain with Corinne 5/325 one table daily and tramadol 50 [...] the patient's pain medication which would be Corinne 5/325 one tablet daily and tramadol 50 [...] she need us. CC: Fernie Hackett D.O. [facility] Signed and Approved by: DR LUISA STERN . 05/02/2022 08:52:00[facility]05-26-2022 Evaluation note* Encounter Date Diagnosis Assessment Notes [...] any recent gout flare. She takes allopurinol. [facility] Other [id number] NoteCONSULTATION CONSULTATION DATE: 03/30/2022 This is a [...] She was given a 14-day prescription of Corinne 5/325 b.i.d. to help with the acuity of her post-procedure pain. Today she reports the Corinne is gone and she is back on [...] and rather we will maintain her on Corinne 5/325 b.i.d. which proved to be the [...] and agree and would like to proceed. [facility] Signed and Approved by: JONNY CAMPUZANO . 04/03/2022 15:07:00[facility]02-15-2022 Evaluation note* Encounter Date Diagnosis Assessment Notes [...] any recent gout flare. She takes allopurinol. [facility] Other evaluation noteNo InformationNortKindred [facility] Other evaluation note* Diagnosis Hypomagnesemia- Primary Disorders of magnesium metabolism documented in this encounter [facility] note* Diagnosis Hypomagnesemia- Primary Disorders of magnesium metabolism [facility]* Diagnosis Mixed hyperlipidemia- Primary Type 2 diabetes mellitus with stage 3b chronic kidney disease, with long-term current use of insulin ([facility]) Essential hypertension Unspecified essential hypertension documented [facility] this [facility] SystemEvaluation noteNo assessment information available [facility] Work Phone: Evalunnxfd note* Diagnosis Hypomagnesemia- Primary Disorders of magnesium metabolism documented in this encounter [facility] SystemEvaluation note* Diagnosis Hypomagnesemia- Primary Disorders of magnesium metabolism documented in this [facility]* Diagnosis Hypomagnesemia- Primary Disorders of magnesium metabolism documented in this encounter [facility] System[facility] note* Diagnosis Hypomagnesemia- Primary Disorders of magnesium metabolism documented in this encounter [facility] SystemEvaluation note* Diagnosis Medicare annual wellness visit, subsequent- Primary Screening for depression documented in this encounter [facility] System[facility] note* Diagnosis 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 ([facility])- Primary documented in this encounter [facility] SystemEvaluation note* Diagnosis Hypomagnesemia- Primary Disorders of magnesium metabolism documented in this encounter [facility] SystemEvaluation note* Diagnosis Onset Date Resolution Status Anemia of renal disease acut e CKD (chronic kidney disease) stage 3, GFR 30-59 ml/min acute [id number] acute Hyperuricemia acute Hypomagnesemia acute Secondary hyperparathyroidism acute Type 2 diabetes mellitus wit h diabetic chronic kidney disease acute [facility] Work Phone: Evaluation note* Diagnosis Hypomagnesemia- Primary Disorders of magnesium metabolism documented in this encounter [facility] SystemEvaluation note* Diagnosis Hypomagnesemia- Primary Disorders of magnesium metabolism documented in this encounter [facility] SystemEvaluation note* Diagnosis 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)- Primary Morbid obesity ([facility]) Morbid obesity documented in this encounter [facility] SystemEvaluation note* Diagnosis Hypomagnesemia- Primary Disorders of magnesium metabolism documented in this encounter [facility] SystemEvaluation note* Diagnosis Paresthesia of right lower extremity- Primary Ross's esophagus with dysplasia documented in this encounter [facility] SystemEvaluation note* Diagnosis Hypomagnesemia- Primary Disorders of magnesium metabolism documented in this encounter [facility] SystemEvaluation note* Diagnosis Hypomagnesemia- Primary Disorders of magnesium metabolism documented in this encounter [facility] SystemEvaluation note* Diagnosis 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)- Primary Morbid obesity (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)- Primary Morbid obesity ([facility]) Morbid obesity documented in this encounter [facility] SystemEvaluation note* Diagnosis Lumbar stenosis with neurogenic claudication- Primary documented in this encounter [facility] SystemEvaluation note* Diagnosis Urinary incontinence, unspecified type- Primary Abnormality of gait and mobility documented in this encounter [facility] SystemHistory general Narrative - Reported* Type Description [...] IN LOWER BACK Hospitalization History see above [facility] Other history general Narrative - Reported* Type [...] HEART CATH 03/30/2021 Hospitalization History see above [facility] Other history general Narrative - Reported* Type [...] IN LOWER BACK Hospitalization History see above [facility] Other InstructionsNot on filedocumented in this encounter [...] kidney disease) stage 3, GFR 30-59 ml/min [id number] Hyperuricemia Hypomagnesemia Secondary hyperparathyroidism Type 2 diabetes mellitus with diabetic chronic kidney disease Chief Complaint Admit Date Unknown November 20, 2024 4: 20am Additional Source Comments INFORMATION SOURCE (unrecogn ized section and content) DATE CREATED AUTHOR 04/06/2021 [facility] DATE CREATED AUTHOR AUTHOR'S ORGANIZ ATION 05/12/2022 [facility] DATE CREATED AUTHOR AUTHOR'S ORGANIZ ATION 03/15/2023 [facility] DATE CREATED AUTHOR AUTHOR'S ORGANIZ ATION 11/19/2023 [facility] DATE CREATED AUTHOR AUTHOR'S ORGANIZ ATION 05/31/2024 [facility] DATE CREATED AUTHOR AUTHOR'S ORGANIZ ATION 06/03/2024 [facility] DATE CREATED AUTHOR AUTHOR'S ORGANIZ ATION 11/07/2024 [facility] DATE CREATED AUTHOR AUTHOR'S ORGANIZ ATION 11/23/2024 [facility] DATE CREATED AUTHOR AUTHOR'S ORGANIZ ATION 11/26/2024 [facility] REASON FOR VISIT (unrecogniz ed [...] out to hospital fo r evaluation 12/01/2024 Reason Comments Face to Face for incont supplies Care Teams (unrecognized sec tion and content) [...] May 01, 2024 End: May 01, 2024 Bed And Breakfast Cook Relationship Specialty Start Date End Date Fernie Hackett DO [address] [place] [address] PCP - General Family Medicine 05/09/17 Bed And Breakfast Cook Relationship Specialty Start Date End Date RoxannFernieDO [address] [place] [address] PCP - General Family Medicine 05/09/17 Bed And Breakfast Cook Relationship Specialty Start Date End Date Fernie Hackett JamarcusDO [address] [place] [address] PCP - General Family Medicine 05/09/17 Bed And Breakfast Cook Relationship Specialty Start Date End Date Fernie Hackett JamarcusDO [address] [place] [address] PCP - General Family Medicine 05/09/17 Bed And Breakfast Cook Relationship Specialty Start Date End Date Fernie Hackett DO [address] [place] [address] PCP - General Family Medicine 05/09/17 Team Status: Inactive Member Role Status Dates Fernie Roxann Primary Care Provider Active Gia Munoz MD Attending Provider Active Bed And Breakfast Cook Relationship Specialty Start Date End Date Tracyangel luisFernie [address] [place] [address] PCP - General Family Medicine 05/09/17 Bed And Breakfast Cook Relationship Specialty Start Date End Date Tracyangel luisFernie [address] [place] [address] PCP - General Family Medicine 05/09/17 Bed And Breakfast Cook Relationship Specialty Start Date End Date Tracyangel luisFernie [address] [place] [address] PCP - General Family Medicine 05/09/17 Bed And Breakfast Cook Relationship Specialty Start Date End Date Tracyangel luisFernie [address] [place] [address] PCP - General Family Medicine 05/09/17 Bed And Breakfast Cook Relationship Specialty Start Date End Date Tracyangel luisFernie [address] [place] [address] PCP - General Family Medicine 05/09/17 Bed And Breakfast Cook Relationship Specialty Start Date End Date RoxannFernie [address] [place] [address] PCP - General Family Medicine 05/09/17 Bed And Breakfast Cook Relationship Specialty Start Date End Date Fernie Hackett DO [address] [place] [address] PCP - General Family Medicine 05/09/17 Bed And Breakfast Cook Relationship Specialty Start Date End Date Fernie Hackett DO [address] [place] [address] [address] PCP - General Family Medicine 05/09/17 Flori Mon CCM Nurse - [facility] 06/26/24 Bed And Breakfast Cook Relationship Specialty Start Date End Date Fernie Hackett DO [address] [place] [address] [address] [place] [address] PCP - General Family Medicine 05/09/17 Flori Mon CCM Nurse - [employer] 06/26/24 Bed And Breakfast Cook Relationship Specialty Start Date End Date Fernie Hackett DO [address] [place] [address] [address] [place] [address] PCP - General Family Medicine 05/09/17 Flori Mon CCM Nurse - [employer] 06/26/24 Bed And Breakfast Cook Relationship Specialty Start Date End Date Fernie Hackett DO [address] [place] [address] [address] [place] [address] PCP - General Family Medicine 05/09/17 Flori Mon CCM Nurse - [employer] 06/26/24 Bed And Breakfast Cook Relationship Specialty Start Date End Date Roxann Fernie G, [address], [place] [address] PCP - General Family Medicine 05/09/17 Flori Mon [facility]CM Nurse - [facility] 06/26/24 Bed And Breakfast Cook Relationship Specialty Start Date End Date RoxannFernie [address], [place] [address] PCP - General Family Medicine 05/09/17 Flori Mon [facility] Nurse - [employer] 06/26/24 Bed And Breakfast Cook Relationship Specialty Start Date End Date Roxann Fernie G, [address], [place] [address] PCP - General Family Medicine 05/09/17 Flori Mon [facility] Nurse - [employer] 06/26/24 Bed And Breakfast Cook Relationship Specialty Start Date End Date Roxann Fernie G, [address], [place] [address] PCP - General Family Medicine 05/09/17 Flori Mon [facility] Nurse - [employer] 06/26/24 Bed And Breakfast Cook Relationship Specialty Start Date End Date Roxann Fernie Jamarcus [address], [place] [address] PCP - General Family Medicine 05/09/17 Flori Mon [facility] Nurse - [facility] 06/26/24 Bed And Breakfast Cook Relationship Specialty Start Date End Date Fernie Hackett DO [address], [place] [address] PCP - General Family Medicine 05/09/17 Flori Mon [facility] Nurse - [employer] 06/26/24 Bed And Breakfast Cook Relationship Specialty Start Date End Date Fernie Hackett DO [address], [place] [address] PCP - General Family Medicine 05/09/17 Flori Mon [facility] Nurse - [facility] 06/26/24 Bed And Breakfast Cook Relationship Specialty Start Date End Date Fernie Hackett DO [address], [place] [address] PCP - General Family Medicine 05/09/17 Flori Mon [facility] Nurse - [employer] 06/26/24 Bed And Breakfast Cook Relationship Specialty Start Date End Date Fernie Hackett DO [address], [place] [address] PCP - General Family Medicine 05/09/17 Flori Mon [facility] Nurse - [employer] 06/26/24 Bed And Breakfast Cook Relationship Specialty Start Date End Date Fernie Hackett DO [address], [place] [address] PCP - General Family Medicine 05/09/17 Flori Mon [facility] Nurse - [employer] 06/26/24 Bed And Breakfast Cook Relationship Specialty Start Date End Date Fernie Hackett DO [address], [place] [address] [facility] - General Family Medicine 05/09/17 [facility] Nurse - [employer] 11/17/24 Bed And Breakfast Cook Relationship Specialty Start Date End Date Fernie Hackett DO [address], [place] [address] [facility] General Family [facility] 05/09/17 Clari Aland [facility] Nurse - [employer] 11/17/24 Bed And Breakfast Cook Relationship Specialty Start Date End Date Fernie Hackett [address], [place] [address] [facility] General Family [facility] 05/09/17 [facility] Nurse - [employer] 11/17/24 Bed And Breakfast Cook Relationship Specialty Start Date End Date Fernie Hackett DO [address], [place] [address] PCP - General [facility] 05/09/17 Goals (unrecognized section and content) Goals [...] BE BASED ON THE PRIMARY CLINICAL RECORDS. [facility] [employer] [facility]. provides no warranty or guarantee of the accuracy or completeness of information in this document.
--- NOTE | 2024-12-09 09:06 | P.DS_ITS ---
DS: Providers Provider Date of admission: 12/05/24 16:52 Primary care physician: SHANDA CLARK Consults: 12/05/24 Consult to Director Project Management Routine Reason for consult:: Prison 12/05/24 16:52 Occupational Therapy Eval and Treat Routine Reason for consultation: Ambulatory dysfunction/weakness Physical Therapy Eval and Treat Routine Reason for consultation: Ambulatory dysfunction/weakness DS: Diagnosis Discharge Diagnosis (1) Acute metabolic encephalopathy: (2) Generalized weakness: (3) RENÉ (acute kidney injury): (4) Urinary tract infection: Qualifiers: Hematuria presence: without hematuria Urinary tract infection type: acute cystitis Qualified Code(s): N30.00 - Acute cystitis without hematuria (5) CKD stage 3b, GFR 30-44 ml/min: (6) Diabetes: Qualifiers: Chronic kidney disease stage: stage 3 (moderate) Chronic kidney disease stage 3 subtype: stage 3b (GFR 30-44) Diabetes mellitus complication detail: with chronic kidney disease Diabetes mellitus complication status: with kidney complications Diabetes mellitus fpc insulin use: with fpc use Diabetes mellitus type: type 2 Qualified Code(s): E11.22 - Type 2 diabetes mellitus with diabetic chronic kidney disease; N18.32 - Chronic kidney disease, stage 3b; Z79.4 - penitentiary (current) use of insulin (7) COPD (chronic obstructive pulmonary disease): Qualifiers: COPD type: unspecified COPD Qualified Code(s): J44.9 - Chronic obstructive pulmonary disease, unspecified (8) 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 Qualified Code(s): I15.2 - Hypertension secondary to endocrine disorders (9) HLD (hyperlipidemia): Qualifiers: Hyperlipidemia type: unspecified Qualified Code(s): E78.5 - Hyperlipidemia, unspecified Plan Admission findings: Uncontrolled hypertension, acute renal failure (her baseline creatinine most recently was a creatinine of 1.75, her creatinine on admission was 5.31. She is 303.4% above baseline resulting in acute renal failure definition), due to significant dehydration and acute UTI with altered mental status Acute renal failure as outlined above-improving daily but still not back to baseline., Continue slow hydration Acute metabolic encephalopathy: Due to acute UTI and dehydration, overall improved but still with some disorientation Generalized weakness: PT OT eval today Urinary tract infection: White blood cell count stable so we will maintain current antibiotics, check on culture results CKD stage 3b, GFR 30-44 ml/min: Monitor daily Diabetes: Insulin sliding scale COPD (chronic obstructive pulmonary disease): Lungs are clear HTN (hypertension): Continue current medications HLD (hyperlipidemia): Continue with current medications Abdominal pain this morning-check acute abdominal series, no rebound tenderness Elevated liver function test-this is likely secondary to passive congestion- improved today Severe protein calorie malnutrition-diet management GERD-change patient IV Protonix secondary to the abdominal pain as outlined above Admission status: Patient mated with acute renal failure, medically necessary treatment will span 2 midnights. Inpatient status DS: Summary Hospital Course Hospital Course: Patient was admitted with generalized weakness secondary to acute renal failure with creatinine over 300% above her baseline. 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 Her creatinine is back down to baseline actually slightly better than her baseline at last admission. Your creatinine is down to 1.3, urine did show Keely glabrata. At this point she is medically stable, still having some alteration mental status but no focal neurological deficits she may discharge back to her rehabilitation facility. Will do the Keely glabrata 400 mg a day for a month secondary to potential resistance pattern. Will hold off on further oral antibiotics. Hold off on diuretics. Medications see list. Follow-up PCP at rehab Time Spent with Patient Time attestation: Total time spent providing and/or coordinating discharge services: Exam Constitutional Vital Signs, click to edit/add: Last Vital Signs Temp 97.9 F 12/09/24 05:58 Pulse 74 12/09/24 07:54 Resp 18 12/09/24 05:58 BP 192/79 H 12/09/24 05:58 Pulse Ox 90 L 12/09/24 05:58 O2 Del Method Room Air 12/09/24 05:58 O2 Flow Rate 2 12/05/24 12:19 Documenting provider has reviewed patient's vital signs: yes Common normals: no apparent distress Chest Common normals: inspection of chest normal Respiratory Common normals: normal respiratory effort and no retractions Cardio Common normals: regular rate and regular rhythm GI Common normals: Normal to inspection, nondistended, normoactive bowel sounds present and soft to palpation; tender (Mild diffuse tenderness) DS: Data Data Completed and Pending Labs on day of discharge: Labs from last 24 hours 12/09/24 12/08/24 12/08/24 05:28 21:20 16:51 WBC 4.5 RBC 3.77 L Hgb 10.9 L Hct 34.4 L MCV 91.2 MCH 28.9 MCHC 31.7 RDW 14.4 Plt Count 171 MPV 11.2 Neut % (Auto) 61.3 Lymph % (Auto) 21.1 Butts % (Auto) 11.4 Eos % (Auto) 4.9 Baso % (Auto) 0.4 Neut # (Auto) 2.7 Lymph # (Auto) 0.9 L Butts # (Auto) 0.5 Eos # (Auto) 0.2 Baso # (Auto) 0.0 Abs Immat Gran (auto) 0.04 H Imm/Tot Granulo (auto) 0.9 H Sodium 141 Potassium 4.3 Chloride 109 H Carbon Dioxide 25.5 Anion Gap 10.8 BUN 37.0 H Creatinine 1.31 H Est GFR ( Amer) 47 L Est GFR (Non-Af Amer) 39 L BUN/Creatinine Ratio 28.2 Glucose 154 H Calcium 8.9 Total Bilirubin 0.6 AST 41 H ALT 50 Alkaline Phosphatase 92 Total Protein 5.8 L Albumin 2.3 L Globulin 3.5 Albumin/Globulin Ratio 0.7 Miscellaneous Test POC Glucose 121 H 133 H 12/08/24 12/05/24 11:30 13:09 WBC RBC Hgb Hct MCV MCH MCHC RDW Plt Count MPV Neut % (Auto) Lymph % (Auto) Butts % (Auto) Eos % (Auto) Baso % (Auto) Neut # (Auto) Lymph # (Auto) Butts # (Auto) Eos # (Auto) Baso # (Auto) Abs Immat Gran (auto) Imm/Tot Granulo (auto) Sodium Potassium Chloride Carbon Dioxide Anion Gap BUN Creatinine Est GFR ( Amer) Est GFR (Non-Af Amer) BUN/Creatinine Ratio Glucose Calcium Total Bilirubin AST ALT Alkaline Phosphatase Total Protein Albumin Globulin Albumin/Globulin Ratio Miscellaneous Test Comment POC Glucose 123 H Preliminary micro results at discharge 12/05/24 13:27 Blood Culture Result 1 - Preliminary Blood NO GROWTH AT 36-48 HOURS. FINAL TO FOLLOW. 12/05/24 13:20 Blood Culture Result 1 - Preliminary Blood NO GROWTH AT 36-48 HOURS. FINAL TO FOLLOW. Discharge Plan Discharge Disposition: Xfer SNF Discharge Medications: New carvedilol 12.5 mg Tablet 12.5 mg PO BID Qty: 60 11RF Ensure Active Protein-Muscle Liquid 1 ea PO BID Qty: 5688 0RF fluconazole 200 mg tablet 400 mg PO DAILY Qty: 60 0RF pantoprazole [Protonix] 40 mg tablet,delayed release (DR/EC) 40 mg PO DAILY Qty: 30 11RF Continued aspirin 81 mg tablet,delayed release (DR/EC) 81 mg PO DAILY atorvastatin 80 mg tablet 80 mg PO DAILY baclofen 10 mg tablet 10 mg PO .QHS insulin lispro 100 unit/mL insulin pen 6 unit subcut BIDWM theophylline 400 mg tablet extended release 24 hr 400 mg PO .QHS montelukast 10 mg tablet 10 mg PO .QHS levocetirizine 5 mg tablet 5 mg PO .QHS fluticasone furoate-vilanterol [Breo Ellipta] 200-25 mcg/dose blister with device 1 inh INHALATION Q24H pregabalin [Lyrica] 75 mg capsule 75 mg PO DAILY insulin glargine [Lantus Solostar U-100 Insulin] 100 unit/mL (3 mL) insulin pen 46 unit SUBCUT .qhs Discontinued carvedilol 6.25 mg tablet 6.25 mg PO BID allopurinol 100 mg tablet 100 mg PO BID famotidine 20 mg tablet 20 mg PO BID furosemide 40 mg tablet 80 mg PO BID lisinopril 40 mg tablet 40 mg PO .QHS tramadol 50 mg tablet 50 mg PO Q6H PRN (Reason: pain) Print Language: Turkmen Underwriting Operations Manager/Roving Can Tender Instructions: Discharge back to [facility] skilled Forms: Portal Instructions
--- NOTE | 2024-12-09 09:36 | CM.NOTE ---
Rounds made with Dr. Curtis, pt will discharge to [facility] for skilled therapy.
--- NOTE | 2024-12-09 10:19 | SWNOTE1 ---
Pt is ready for discharge. [facility] emailed [facility] to make sure [facility] are able to take patient today. [facility] voiced they are ready for her. AYAH then received a call from [facility] asking if pt can come tomorrow? [facility] advised [facility] that pt is medically stable for discharge today and if they are not able to accept, then AYAH will have to find another facility. [facility] is reaching out to [facility] and letting [facility]YAH know.
[2024-12-09] MEDS: PANTOPRAZOLE SODIUM 40 MG VIAL IV (10:26)
[2024-12-09] MEDS: CARVEDILOL 12.5 MG TABLET PO (10:27)
[2024-12-09] MEDS: OXYCODONE HCL 5 MG TABLET PO ×2 (10:27→16:59)
[2024-12-09] MEDS: ASPIRIN 81 MG TABLET.DR PO (10:27)
[2024-12-09] MEDS: ACETAMINOPHEN 325 MG TABLET 650 MG PO ×2 (10:27→16:59)
[2024-12-09 11:37] LABS: Glucometer 136 mg/dL (74-106)
--- NOTE | 2024-12-09 11:49 | SWNOTE1 ---
AYAH spoke to Ismael at [facility] and they are able to take patient back today. AYAH faxed over fl med rec and updated labs to [facility]. AYAH called and set up stretcher transportation with [facility] for 2:00. AYAH let nurse, Shan, and pt's know time. Pt is returning to [facility] skilled.
--- NOTE | 2024-12-09 11:52 | REH.PTDLY ---
Physical Therapy Daily Note PT Daily Note/Assess Start: 12/08/24 11:26 Freq: Status: Active Protocol: Document 12/09/24 10:54 KAROL (Rec: 12/09/24 11:00 KAROL [id number]) Physical Therapy Daily Note/Assessment Time In 10:27 Time Out 10:41 Subjective Pt awake upon arrival. Pt states she is nauseous, afraid to move as she has diarrhea. Nursing just got pt cleaned up. Encouraged pt to participate. Therapeutic Exercise 8 Minutes (minutes) Therapeutic Exercise 1 Units Therapeutic Exercise Cues for AAROM with supine exs, but is PROM with Ascencion Treatment LEs. Struggles to follow cues, just talking about the little girl and her mother. Pt appears to be confused. Therapeutic Activity 2 Minutes (minutes) Therapeutic Activity 0 Units Therapeutic Activity Assisted with transfer to EOB, pt unable to actively Comments participate with cues. Max A x2 with all transfers and sitting balance. Total Therapy 10 Minutes Total Physical 1 Therapy Units Daily Note Summary Pt will require SNF stay at [facility] due to inability to transfer or care for herself at this time. Pt unable to follow directions during rx.
--- NOTE | 2024-12-09 13:16 | OT.DAILY ---
Occupational Therapy Daily Note OT Inpatient Daily Visit Note Start: 12/09/24 12:59 Freq: Status: Active Protocol: Document 12/09/24 13:00 [id number] (Rec: 12/09/24 13:16 [id number]) OT Visit Details Time In/Time Out Time In 10:23 Time Out 10:31 OT Treatment Plan Subjective Subjective Pt not oriented to place or time. Pt reports nausea with emesis bag in hand. Pt unable to participate in conversation with normal thought process. Pt willing to participate with encouragement and prompting. Objective Objective Pt sitting up in bed, 2-person Max A sitting to EOB. Pt demonstrates limited muscle use to transition, required h/h to execute. Not responsive to verbal or tactile cues. Demonstrates poor posture leaning laterally, poor core tone and use. Pt prompted to use bedrail to assist in stabilizing self, poor UE strength . Pt would often say wait a minute to gather bearings . To remain seated on EOB, Pt required support from back and axillary area. Sitting tolerance of 1min-90sec . 2-person Max A EOB to supine. Assessment Assessment Pt demonstrates poor use of muscles in BUE and BLE. Pt will return to SNF. Continue OT POC. OT Art History Instructor Timed Codes Therapeutic activity 8 minutes (minutes) Therapeutic activity 1 units
[2024-12-09] MEDS: CLONIDINE HCL 0.1 MG TABLET PO (14:28)
--- NOTE | 2024-12-09 15:59 | CT_ITS ---
The [address] [address] Patient Name: DAVID DUGAN MRN: [id number] date: 1940 Sex: F Assigned Patient Location: [place] Current Patient Location: [place] Accession/Order Number: [id number] Exam Date: 12/09/2024 16:26 Report Date: 12/09/2024 16:59 At the request of: TAMIKO PANG Procedure: CT head/brain wo con EXAM: CT head/brain wo con HISTORY: ams COMPARISON: Head CT 12/05/2024 and earlier. TECHNIQUE: Head CT noncontrast. Axial scans with reformatted coronal sagittal images. Individualized radiation dose reduction used for this exam. FINDINGS: Brain appearance stable without mass, edema or hemorrhage. Ventricles sulci prominent unchanged. No extra-axial collection or hematoma. No mass effect or midline shift. Chronic opacification right maxillary sinus again noted, correlate for sinusitis. No new sinus density. Mastoid and middle ear cavities clear. Lucency at the skull base occipital area right greater than left is chronic and unchanged. No acute appearing fracture. CT/CT head/brain wo con IMPRESSION: Stable head CT without new or acute appearing abnormality. Correlate for right maxillary sinusitis. Electronically authenticated by: AYAAN ARORA Date: 12/09/2024 16:59
[2024-12-09 16:12] LABS: Glucometer 148 mg/dL (74-106)
--- NOTE | 2024-12-09 16:12 | SWNOTE1 ---
SW stopped in to talk with sister and let her know transport moved back. She voice concerns about her discharging back to [facility] and she will likely be right back. She stated for last 2 hours pt has been hallucinating. Pt did stated she does see a stick on floor and bird on pillow. SW did speak with nurse who reached out to doctor. Nurse came in and updated sister with what doctor said. SW did let nurse know that SW was reaching out to doctor as well. AYAH sent Dr. Curtis message in regards to hallucinations.
--- NOTE | 2024-12-09 17:02 | PC.NURSE ---
Dr. Sierra notified of patients nausea and confusion/hallucinations. CT of head completed. Per dr sierra patient can still go just make sure the report gets sent over to the shelter
--- NOTE | 2024-12-09 17:36 | PC.NURSE ---
report given to ALBERTA at [facility], all questions answered
== END 2024-12-09 17:35 | DRG 682 ==
LOC: ER 13:55 → MS 16:26
PROVIDERS: Admitting Provider Internal Medicine; Emergency Provider Emergency Medicine; PCP Family Medicine; Visit Provider Family Medicine
DX: N17.9 Acute kidney failure, unspecified (principal); E43 Unspecified severe protein-calorie malnutrition; G93.41 Metabolic encephalopathy; I50.43 Acute on chronic combined systolic (congestive) and diastolic (congestive) heart failure; I13.0 Hypertensive heart and chronic kidney disease with heart failure and stage 1 through stage 4 chronic kidney disease, or unspecified chronic kidney disease; B37.41 Candidal cystitis and urethritis; Z68.41 Body mass index [BMI] 40.0-44.9, adult; R41.82 Altered mental status, unspecified; Z91.81 History of falling; E86.0 Dehydration; N18.32 Chronic kidney disease, stage 3b; Z79.891 Long term (current) use of opiate analgesic; E11.22 Type 2 diabetes mellitus with diabetic chronic kidney disease; J44.9 Chronic obstructive pulmonary disease, unspecified; M10.30 Gout due to renal impairment, unspecified site; K21.9 Gastro-esophageal reflux disease without esophagitis; Z87.442 Personal history of urinary calculi; E78.00 Pure hypercholesterolemia, unspecified; Z90.49 Acquired absence of other specified parts of digestive tract; Z90.710 Acquired absence of both cervix and uterus; Z79.82 Long term (current) use of aspirin; Z79.4 Long term (current) use of insulin; R53.1 Weakness; R10.9 Unspecified abdominal pain; R79.89 Other specified abnormal findings of blood chemistry
CPT/HCPCS: 36415; 51702; 70450; 71045; 72125; 74022; 76775; 80048; 80053; 81001; 82140; 82948; 83605; 84443; 84484; 85025; 87040; 87045; 87046; 87086; 87427; 87493; 93005; 94640; 94761; 96361; 96365; 96375; 97110; 97162; 97165; 97530; 99285; J0360; J0696; J0743; J1171; J1644; J2405

== ENCOUNTER 2025-01-02 04:46 | Observation (INO) | payer MEDICARE, SELFPAY ==
[2025-01-02] VITALS (37 sets, daily range): BP systolic 153–211; BP diastolic 68–111; PULSE 48–62; TEMP 36.6–37.1; O2SAT 96–98; BMI 36.6
--- NOTE | 2025-01-02 04:48 | ED.GENADUL1 ---
HPI HPI - General Adult General Chief complaint: Chest Pain Stated complaint: CHEST PAIN Time Seen by Provider: 01/02/25 04:48 History of Present Illness HPI narrative: Patient is a 84-year-old female who is presenting to the ER by EMS from the [facility] with chief complaint of midsternal chest pain that goes across the right and left side of her chest, goes into her left scapula, left shoulder, down her left arm. Patient is also having left wrist pain. Patient has no injury to the left wrist. Patient had a cardiac cath a couple years ago that showed no acute findings. Patient has no cardiac history of heart attack or stents. Patient does take baby aspirin daily along with Coreg. Patient currently in rehab at the [facility]. Patient had no fall, twisting or turning. Patient said the pain started yesterday morning. Approximately 24 hours ago. She stated that the staff was going to watch and wait to see what develop with her chest pain and that is why she did not come to the ER yesterday morning. Patient has no headache or neck pain. Patient has chronic nausea. She has no vomiting, no diarrhea. Patient currently cannot stand up to support her weight or walk. That is why she is in rehab. Patient has chronic peripheral lower extremity edema All systems are negative except as noted/marked. All systems reviewed and otherwise negative. Nurses note and vital signs reviewed and patient is not hypoxic. General: The patient appears mild distress secondary to pain discomfort anxiety. Patient is resting uncomfortably on cart. Patient is not toxic, lethargic, or listless Skin: Warm, dry, no pallor noted. There is no rash noted. No petechiae, purpura. Head: Normocephalic, atraumatic Eye: Normal conjunctiva, no drainage, EOMI. PERRL Ears, Nose, Mouth, and Throat: oral mucosa is moist. Nares patent. Mouth without vesicles. Cardiovascular: Regular Rate and Rhythm, no murmur, gallop, rub. No reproducible tenderness to palpation to bilateral anterior lateral chest wall. Respiratory: Patient is in no distress, no accessory muscle use, lungs are clear to auscultation, no wheezing, rales or rhonchi Back: non-tender, no CVA tenderness bilaterally to percussion. No CT LS midline pain GI: Soft, obese, no tenderness to palpation, no masses appreciated. No rebound, guarding, or rigidity noted. No distention Musculoskeletal: Patient has full range of motion of all of the extremities except the left wrist. Patient has moderate pain with flexion extension abduction adduction of left wrist. No obvious deformity. Patient has lymphedema to left upper extremity chronic. Patient has bilateral lower extremity lymphedema., no motor, sensory, or focal neurological deficits. Chronic bilateral lower extremity swelling. neurological: A&O x4, normal speech Psychiatric: Cooperative Related Data Home Medications ?Medication ?Instructions ?Recorded ?Confirmed aspirin 81 mg tablet,delayed 81 mg PO DAILY 04/26/23 12/05/24 release atorvastatin 80 mg tablet 80 mg PO DAILY 04/26/23 12/05/24 baclofen 10 mg tablet 10 mg PO .QHS 04/26/23 12/05/24 insulin lispro 100 unit/mL 6 unit subcut BIDWM 04/26/23 12/05/24 subcutaneous pen theophylline 400 mg 400 mg PO .QHS 04/26/23 12/05/24 tablet,extended release 24 hr fluticasone furoate 200 1 inh inhalation Q24H 11/24/24 12/05/24 mcg-vilanterol 25 mcg/dose inhalation powder (Breo Ellipta) insulin glargine 100 unit/mL (3 46 unit subcut .qhs 11/24/24 12/05/24 mL) subcutaneous pen (Lantus Solostar U-100 Insulin) levocetirizine 5 mg tablet 5 mg PO .QHS 11/24/24 12/05/24 montelukast 10 mg tablet 10 mg PO .QHS 11/24/24 12/05/24 pregabalin 75 mg capsule (Lyrica) 75 mg PO DAILY 11/24/24 12/05/24 Previous Rx's ?Medication ?Instructions ?Recorded carvedilol 12.5 mg tablet 12.5 mg PO BID #60 tabs 12/09/24 fluconazole 200 mg tablet 400 mg (2 x 200 mg) PO DAILY #60 12/09/24 tabs food supplemt, lactose-reduced 1 ea PO BID #5,688 mL 12/09/24 (Ensure Active Protein-Muscle oral liquid) pantoprazole 40 mg tablet,delayed 40 mg PO DAILY #30 tabs 12/09/24 release (Protonix) Allergies Allergy/AdvReac Type Severity Reaction Status Date / Time adhesive tape Allergy Unknown rash Verified 01/02/25 07:16 povidone-iodine (From Allergy Unknown Rash Verified 01/02/25 07:16 Betadine) red dye Allergy Unknown Rash Verified 01/02/25 07:16 Sulfa (Sulfonamide Allergy Unknown Rash Verified 01/02/25 07:16 Antibiotics) tetracycline Allergy Unknown Rash Verified 01/02/25 07:16 Opioid HPI Opioid Management Most Recent Opioid Data: Last Pain Scale 4 01/02/25 04:58 01/02/25 Last Pain Intensity 4 11/27/24 11:35 11/27/24 Last ORT Total Score 0 12/05/24 17:05 12/05/24 Last ORT Risk Category Low Risk 12/05/24 17:05 12/05/24 PFSH ON LICENSE OF [facility] Medical History (Updated 01/02/25 @ 07:19 by Gaetano Teixeira MD) Generalized weakness ?R53.1 - Weakness (ICD-10) Altered mental status ?R41.82 - Altered mental status, unspecified (ICD-10) Acute kidney failure ?N17.9 - Acute kidney failure, unspecified (ICD-10) HLD (hyperlipidemia) ?E78.5 - Hyperlipidemia, unspecified (ICD-10) CKD stage 3b, GFR 30-44 ml/min ?N18.32 - Chronic kidney disease, stage 3b (ICD-10) Constipation due to opioid therapy ?K59.03 - Drug induced constipation (ICD-10) ?T40.2X5A - Adverse effect of other opioids, initial encounter (ICD-10) Chronic use of opiate drug for therapeutic purpose ?Z79.891 - or rn (current) use of opiate analgesic (ICD-10) Lumbar stenosis with neurogenic claudication ?M48.062 - Spinal stenosis, lumbar region with neurogenic claudication (ICD-10) Diabetes ?E11.9 - Type 2 diabetes mellitus without complications (ICD-10) COPD (chronic obstructive pulmonary disease) ?J44.9 - Chronic obstructive pulmonary disease, unspecified (ICD-10) HTN (hypertension) ?I10 - Essential (primary) hypertension (ICD-10) Chronic prescription opiate use ?Z79.891 - or rn (current) use of opiate analgesic (ICD-10) Lumbar radiculopathy, chronic ?M54.16 - Radiculopathy, lumbar region (ICD-10) Complication of electrolyte disorder ?E87.8 - Other disorders of electrolyte and fluid balance, not elsewhere classified (ICD-10) Concussion ?S06.0XAA - Concussion with loss of consciousness status unknown, initial encounter (ICD-10) Bilateral knee pain ?M25.561 - Pain in right knee (ICD-10) ?M25.562 - Pain in left knee (ICD-10) Muscle spasm ?M62.838 - Other muscle spasm (ICD-10) Lumbar spondylosis ?M47.816 - Spondylosis without myelopathy or radiculopathy, lumbar region (ICD-10) Knee osteoarthritis ?M17.9 - Osteoarthritis of knee, unspecified (ICD-10) Chronic kidney disease ?N18.9 - Chronic kidney disease, unspecified (ICD-10) Acute neck pain ?M54.2 - Cervicalgia (ICD-10) Head injury due to trauma ?S09.90XA - Unspecified injury of head, initial encounter (ICD-10) Urinary tract infection ?N39.0 - Urinary tract infection, site not specified (ICD-10) GERD without esophagitis ?K21.9 - Gastro-esophageal reflux disease without esophagitis (ICD-10) Gout due to renal impairment ?M10.30 - Gout due to renal impairment, unspecified site (ICD-10) Osteoarthritis ?M19.90 - Unspecified osteoarthritis, unspecified site (ICD-10) Anemia ?D64.9 - Anemia, unspecified (ICD-10) Carpal tunnel syndrome ?G56.00 - Carpal tunnel syndrome, unspecified upper limb (ICD-10) Acid reflux ?K21.9 - Gastro-esophageal reflux disease without esophagitis (ICD-10) Cirrhosis of liver ?K74.60 - Unspecified cirrhosis of liver (ICD-10) Kidney stone ?N20.0 - Calculus of kidney (ICD-10) Kidney failure ?N19 - Unspecified kidney failure (ICD-10) Asthma ?J45.909 - Unspecified asthma, uncomplicated (ICD-10) High cholesterol ?E78.00 - Pure hypercholesterolemia, unspecified (ICD-10) Surgical History History of appendectomy ?Z90.49 - Acquired absence of other specified parts of digestive tract (ICD-10) History of hysterectomy ?Z90.710 - Acquired absence of both cervix and uterus (ICD-10) History of neck surgery ?Z98.890 - Other specified postprocedural states (ICD-10) Hx of cholecystectomy ?Z90.49 - Acquired absence of other specified parts of digestive tract (ICD-10) History of lumbar laminectomy ?Z98.890 - Other specified postprocedural states (ICD-10) History of cardiac cath ?Z98.890 - Other specified postprocedural states (ICD-10) Family History Father Family history of CHF (congestive heart failure) Family history of COPD (chronic obstructive pulmonary disease) Family history of cancer Family history of diabetes mellitus Family history of hypertension Mother Family history of diabetes mellitus Family history of hypertension Family history of myocardial infarction Sister Family history of myocardial infarction Social History Within the past year, how often did you have a drink containing alcohol: never Score interpretation: A score less than 3 is consistent with normal alcohol consumption. Smoking status: Never smoker Non-prescribed substance use: denies use Previous occupational history: retired Highest level of school completed/degree received: Associate degree: occupational, technical, vocational program Are you now , , , , never or living with a partner: Little interest or pleasure in doing things: not at all Feeling down, depressed, or hopeless: not at all Do you think of yourself as: straight/heterosexual Gender Identity: female Exam Constitutional Vital Signs, click to edit/add: Last Vital Signs Temp 98.2 F 01/02/25 04:48 Pulse 59 L 01/02/25 07:03 Resp 21 H 01/02/25 07:03 BP 180/68 H 01/02/25 07:03 Pulse Ox 97 01/02/25 07:03 O2 Del Method Nasal Cannula 01/02/25 05:05 O2 Flow Rate 2 01/02/25 05:05 Course Vital Signs Vital signs: Vital Signs Temperature 98.2 F 01/02/25 04:48 Pulse Rate 59 L 01/02/25 04:48 Respiratory Rate 18 01/02/25 04:48 Blood Pressure 209/84 H 01/02/25 04:48 Pulse Oximetry 98 01/02/25 04:48 Oxygen Delivery Method Room Air 01/02/25 04:48 Temperature 98.2 F 01/02/25 04:48 Pulse Rate 59 L 01/02/25 07:03 Respiratory Rate 21 H 01/02/25 07:03 Blood Pressure 180/68 H 01/02/25 07:03 Pulse Oximetry 97 01/02/25 07:03 Oxygen Delivery Method Nasal Cannula 01/02/25 05:05 Oxygen Delivery Flow Rate 2 01/02/25 05:05 Medical Decision Making MDM Narrative Medical decision making narrative: Patient EKG shows no acute findings. Patient had a troponin done now and at 610. Patient be given baby aspirin. Patient given Zofran for chronic nausea. Patient given 2 mg of morphine for chest pain and left wrist pain. Patient was slightly hypertensive as well, she is given a small dose of hydralazine. Patient had a cardiac cath 2 years ago approximation no acute findings. 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 Patient has stage IV kidney disease. Patient at the [facility] for rehab. 0640 patient's nausea did not completely improved with Zofran. Patient given small dose of Compazine. Patient's x-rays were read by Dr. Marrero. Patient left wrist x-ray shows mild osteoarthritis at the left radiocarpal joint, mild to moderate osteoarthritis at the left first CMC joint with very slight lateral subluxation of the base of the left first metacarpal. This is chronic. No acute fracture or dislocation. No lytic or blastic lesion. Medial and dorsal soft tissue swelling. Chest x-ray shows enlarged heart, central pulmonary vascular congestion, no edema or pneumonia, no pleural effusion or pneumothorax. Please see official report. 0650 I discussed patient's lab results, chest x-ray, wrist x-ray with patient and . There was a discussion that patient had slurred speech when she woke up this morning from nursing staff. It was also noted that patient was having possible weakness to the left arm from nursing staff at the [facility] as well. This does not appear to be apparent, patient has not been using her left arm secondary to pain in the left wrist. X-ray shows multiple arthritic changes, no acute findings. Patient has good opposition of her fingers to the left hand. Patient is able to raise her left hand up above her head and show her that. Patient has no pronator drift to left arm or right. There is no acute signs of stroke at this time. She has no aphasia, no dysarthria. NIH is 0. Patient appears to not be using the left arm yesterday secondary to pain. Patient said there is never any type of weakness, weight, loss of sensation. However, CT of the brain will be ordered. Patient is still having some mild nausea, Zofran was initially given. Patient be given a dose of Compazine. Patient was also given Montchanin for left wrist pain. Patient will be admitted for observation for chest pain rule out acute coronary syndrome. Patient agrees with this. CT of the brain will be ordered now. 0710 patient's case was discussed with hospitalist Dr. Singh. Patient will be admitted for observation for chest pain rule out acute coronary syndrome. CT of the brain is pending at this time, Dr. Viera. Patient is already admitted to [facility] telemetry observation. Patient's been in the ER for 3 hours, continuous cardiac monitoring, 2 sets of cardiac enzymes. Critical care time 31 minutes exclusive from separate billable procedures that were performed. The following was considered in the determination of critical care but not limited to the level of medical decision making, intensive cardiac and/or respiratory monitoring, frequent vital sign monitoring, evaluation of laboratory studies, evaluation of radiographic studies, oxygen monitoring, and constant monitoring and speaking to family at bedside Lab Data Lab results reviewed: Yes I reviewed the patient's lab results Labs: Lab Results 01/02/25 01/02/25 Range/Units 04:54 06:17 WBC 6.2 (4.0-11.0) 10^3/uL RBC 3.39 L (4.20-5.40) 10^6/uL Hgb 10.0 L (12.0-16.0) g/dL Hct 31.9 L (36.0-48.0) % MCV 94.1 (81.0-99.0) fL MCH 29.5 (26.7-34.0) pg MCHC 31.3 (29.9-35.2) g/dL RDW 15.1 H (11.0-15.0) % Plt Count 173 (150-450) 10^3/uL MPV 10.8 (9.5-13.5) fL Neut % (Auto) 59.2 (43.0-75.0) % Lymph % (Auto) 23.6 (20.5-60.0) % Jones % (Auto) 11.8 (1.7-12.0) % Eos % (Auto) 4.0 (0.9-7.0) % Baso % (Auto) 0.8 (0.2-2.0) % Neut # (Auto) 3.7 (1.4-6.5) 10^3/uL Lymph # (Auto) 1.5 (1.2-3.8) 10^3/uL Jones # (Auto) 0.7 (0.3-0.8) 10^3/uL Eos # (Auto) 0.3 (0.0-0.7) 10^3/uL Baso # (Auto) 0.1 (0.0-0.1) 10^3/uL Abs Immat Gran (auto) 0.04 H (0.00-0.03) 10^3/uL Imm/Tot Granulo (auto) 0.6 H (0.0-0.5) % PT 11.3 (9.0-11.6) sec INR 1.07 Sodium 142 (136-145) mmol/L Potassium 4.3 (3.5-5.1) mmol/L Chloride 108 H (98-107) mmol/L Carbon Dioxide 29.5 (21.0-32.0) mmol/L Anion Gap 8.8 BUN 27.0 H (7.0-18.0) mg/dL Creatinine 1.31 H (0.55-1.02) mg/dL Est GFR ( Amer) 47 L (>=60 mL/min/1.73m^2) Est GFR (Non-Af Amer) 39 L (>=60 mL/min/1.73m^2) BUN/Creatinine Ratio 20.6 Glucose 129 H (74-106) mg/dL Calcium 8.8 (8.5-10.1) mg/dL Total Bilirubin 0.3 (0.2-1.0) mg/dL AST 21 (15-37) U/L ALT 19 (14-59) U/L Alkaline Phosphatase 100 (46-116) U/L Troponin I High Sens 33.8 35.2 (4.0-51.3) pg/mL NT-Pro-B Natriuret Pep 1865.0 H* (<=1800.0) pg/mL Total Protein 5.5 L (6.4-8.2) g/dL Albumin 1.9 L (3.4-5.0) g/dL Globulin 3.6 g/dL Albumin/Globulin Ratio 0.5 Lipase 44.0 (16.0-77.0) U/L ECG Data Attestation: I personally reviewed and interpreted this ECG as follows: (EKG interpretation. Normal sinus rhythm at 62 beats a minute. Left axis deviation. Right bundle branch block noted. QTc of 477.) Discharge Plan Discharge Chief Complaint: Chest Pain Clinical Impression: Chest pain, Left wrist pain Patient Disposition: Home, Self-Care Time of Disposition Decision: 07:18 Condition: Fair Prescriptions / Home Meds: No Action aspirin 81 mg tablet,delayed release (DR/EC) 81 mg PO DAILY atorvastatin 80 mg tablet 80 mg PO DAILY baclofen 10 mg tablet 10 mg PO .QHS insulin lispro 100 unit/mL insulin pen 6 unit subcut BIDWM theophylline 400 mg tablet extended release 24 hr 400 mg PO .QHS montelukast 10 mg tablet 10 mg PO .QHS levocetirizine 5 mg tablet 5 mg PO .QHS fluticasone furoate-vilanterol [Breo Ellipta] 200-25 mcg/dose blister with device 1 inh INHALATION Q24H pregabalin [Lyrica] 75 mg capsule 75 mg PO DAILY insulin glargine [Lantus Solostar U-100 Insulin] 100 unit/mL (3 mL) insulin pen 46 unit SUBCUT .qhs carvedilol 12.5 mg Tablet 12.5 mg PO BID Qty: 60 11RF Ensure Active Protein-Muscle Liquid 1 ea PO BID Qty: 5688 0RF fluconazole 200 mg tablet 400 mg PO DAILY Qty: 60 0RF pantoprazole [Protonix] 40 mg tablet,delayed release (DR/EC) 40 mg PO DAILY Qty: 30 11RF Print Language: Croatian Referrals: SHANDA CLARK [Primary Care Provider] - 1 week
--- NOTE | 2025-01-02 04:52 | ECG_ITS ---
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
--- OUTSIDE RECORDS SUMMARY | 2025-01-02 04:57 | XMS_ITS | CCD ---
Author Organization [facility] Care Team Providers Care Telecasting Technician Name Role Phone ELTAHAWY, EHAB A Attending Unavailable ELTAHAWY, EHAB A Admitting Unavailable FURLONG, FERNIE Referring Unavailable FURLONG, FERNIE Primary Care Unavailable Tammy, Gia Unavailable JER ., DR LUISA Page Attending Unavailable STERN [...] ., NARENDMARJANATH Attending Marianela vailable LAKSHMIPATHY ., NARENDMARJANATH Admitting Marianela vailable STERN ., DR LUISA Page Attending Unavailable CAMPUZANO ., JONNY Consulting Unavailable FURLONG, DR FRENIE Ricketts Primary Care Unavailable STERN ., DR [...] ., DR LUISA Page Attending Unavailable CAMPUZANO .JONNY Consulting Unavailable FURLONG, DR FERNIE Ricketts Primary Care Unavailable STERN ., DR LUISA Page Admitting Unavailable ELTAHAWY, AB Attending Unavailable DARELL SYLVESTER Attending Unavailable Furlong, DO Enciso Primary Care Provider MD Gia Munoz Attending Provider FURLONG, FERNIE Ricketts Attending Unavailable FURLONG, FERNIE Ricketts Referring Unavailable FURLONG, FERNIE G Primary Care Unavailable FURLONG, FERNIE Ricketts Attending Unavailable FURLONG, FERNIE G Referring Unavailable FURLONG, FERNIE Ricketts Primary Care Unavailable FURLONG, FERNIE Ricketts Attending Unavailable FURLONG, FERNIE Ricketts Referring Unavailable FURLONG, FERNIE G Primary Care Unavailable FURLONG, FERNIE Ricketts Referring Unavailable FURLONG, FERNIE Ricketts Primary Care Unavailable FURLONG, FERNIE Ricketts Referring Unavailable FURLONG, FERNIE Ricketts Primary Care Unavailable FURLONG, FERNIE Ricketts Referring Unavailable FURLONG, FERNIE Ricketts Primary Care Unavailable FURLONG, FERNIE G Referring Unavailable FURLONG, FERNIE G Primary Care Unavailable Furlong DOFernie Primary Care Provider [phone] Kirsten RAND, Christian Rodríguez Attending Unavailable Kirsten RAND, Andgolden Rodríguez Attending Unavailable Kirsten RAND, Nenarius Rodríguez Attending Unavailable Kirsten RAND, Christian Rodríguez Attending Unavailable Furlong Fernie CAMACHO Primary Care Provider Gaetano Viera DO Attending Provider Unavailab le TRACYLONG, FERNIE Ricketts Referring Unavailable FURLONG, FERNIE Ricketts Primary Care Unavailable GIA MUNOZ Referring Unavailable FURLONG, FERNIE Ricketts Primary Care Unavailable FURLONG, FERNIE Ricketts Referring Unavailable FURLONG, FERNIE Ricketts Primary Care Unavailable FURLONG, FERNIE G Referring Unavailable FURLONG, FERNIE G Primary Care Unavailable FURLONG, FERNIE G Referring Unavailable FURLONG, FERNIE Jamarcus Primary Care [...] Unavailable FURLONG, FERNIE Jamarcus Primary Care Unavailable TMAMY, GIA Referring Unavailable FURLONG, FERNIE Jamarcus Primary [...] Unavailable TAMMY, GIA Referring Unavailable FURLONG, FERNIE Ricktets Primary Care Unavailable FURLONG, FERNIE Ricketts Referring [...] Unavailable DANIEL GUERRERO Attending Unavailable FURLONG, FERNIE Ricketts Referring Unavailable [...] Adhesive Tape Substance Allergy 04-24-20 13 [facility] Povidone-Iodine (1 source) Povidone-Iodine Drug Allergy 04-24-20 13 [facility] Sulfonamides (antibiotic) (1 source) Sulfonamides (Antibiotic) Drug Allergy 04-24-20 13 [facility] Tetracyclines (antibiotic) (1 source) Tetracyclines Drug Allergy 04-24-20 13 [facility] (20 sources) Povidone-Iodine; Translations: [POVIDONE-IODINE] Drug Allergy 11-25-19 15 [facility] (10 sources) Sulfonamides (Antibiotic) Propensity to adverse reactions [employer] Other (13 sources) Tetracycline Drug Allergy 11-16-19 24 [facility] (12 sources) Adhesive 1 x6yd Drug allergy 11-08-20 23 [facility] (12 sources) Amlodipine & Diet Manage Prod Drug allergy 11-08-20 23 [facility] (2 sources) Povidone-Iodine; Translations: [Betadine] Drug Allergy 04-23-20 13 rash [facility] (20 sources) Contrast media; Translations: [RED DYE] Drug allergy (disorder) 05-04-20 17 Rash [facility] (4 sources) Desonide Drug Allergy 04-23-20 13 Rash [facility] (1 source) Sulfonamides (Antibiotic) Drug allergy (disorder) 04-23-20 13 [facility] (1 source) Tetracycline Drug Allergy 04-23-20 13 [facility] (20 sources) Adhesive agent; Translations: [ADHESIVE] Propensity to adverse reactions to drug (disorder) 11-25-19 15 Itching, Other (See Comments) [facility] (20 sources) Sulfonamides (Antibiotic); Translations: [SULFA (SULFONAMIDE ANTIBIOTICS)] Propensity to adverse reactions to drug (disorder) 11-25-19 15 [facility] (20 sources) Tetracyclines; Translations: [TETRACYCLINES] Propensity to adverse reactions to drug (disorder) 11-25-19 15 [facility] (20 sources) dilTIAZem; Translations: [DILTIAZEM] Drug Allergy 09-01-20 22 [facility] (20 sources) Linagliptin; Translations: [LINAGLIPTIN] Drug Allergy 09-01-20 22 Rash [facility] (20 sources) ADHESIVE TAPE-SILICONES; Translations: [ADHESIVE TAPE-SILICONES] Propensity to adverse reactions to drug (disorder) 05-04-20 17 [facility] (20 sources) SULFA DYNE; Translations: [SULFA DYNE] Propensity to adverse reactions to drug (disorder) 09-14-20 21 [facility] Medications Current Medications Medication Drug [...] 2024 12:00am take 1 tablet by willa once daily, then take 2 tablets by [...] as needed Orally TWICE A DAY Active [id number] 200 actuat albuterol 0.09 mg/actuat metered dose [...] morning. Active take 2 tablets by mo ut every twenty-four hours Allopurinol 100 MG 2 tablet Orally Once a day for 90 days Active ASA 81 mg (10 sources) take 1 tablet by mouth once daily ASA 81 mg 1 Tablet Oral daily Active atorvastatin 80 mg oral tablet (20 sources) HMG-CoA Reductase Inhibitor Start: 3 End: 4 take 1 tablet by mouth in the morning atorvastatin (LIPITOR) 80 mg tablet Take 1 tablet (80 mg total) by mouth in the morning. 90 tablet 3 04/29/2024 Active baclofen 10 mg oral tablet (20 sources) gamma-Aminobutyric Acid-ergic Agonist Start: 4 baclofen (LIORESAL) 10 mg tablet TAKE 1 TABLET NIGHTLY 90 tablet 3 10/14/2024 Active Start: 11-26-2023 End: 05-27-2024 baclofen (LIORESAL) 10 mg ta blet TAKE 1 TABLET NIGHTLY 90 tablet 3 10/14/2024 Active take 1 tablet by willa th three times daily baclofen (LIORESAL) 10 mg tablet Take 1 tablet (10 mg total) by mouth 3 (three) times a day. 0 Active biotin 10 mg oral tablet [...] blood-glucose meter (TRUE METRIX GLUCOSE METER) misc (12 sources) Start: 11-18-2024 blood-glucose meter (TRUE METRIX GLUCOSE METER) [facility] [place] Unit by miscellaneous route in the [...] (20 sources) alpha-Adrenergic Micki, beta-Adrenergic Micki Start: 04-16-2023 End: 04-09-2024 carvediloL (COREG) 6.25 mg tablet take 1 tablet twice a day 180 tablet 3 04/09/2024 Active cephalexin 500 mg oral capsule (1 source) Cephalosporin Antibacterial Start: 06-02-2024 End: 06-09-2024 take 1 capsule by mouth in the morning, then take 1 capsule by mouth at bedtime CEPHalexin (KEFLEX) 500 mg capsule Take 1 capsule (500 mg total) by mouth in the morning and 1 capsule (500 mg total) before bedtime. Do all this for 7 days. 14 capsule 06/02/2024 06/09/2024 Active chondroitin sulfates 400 mg / glucosamine hydrochloride 500 mg oral tablet (20 sources) take 1 tablet by mouth once daily glucosamine-chondr oitin 500-400 mg tablet Take 1 tablet by mouth once daily. Active diaper,brief,adult, disposable (ALWAYS DISCREET) misc (20 sources) Start: 02-25-2024 diaper,brief,adult ,disposable (ALWAYS DISCREET) misc Indications: Urinary incontinence, unspecified type 1 Unit by miscellaneous route every 2 (two) hours as needed (incontinence). 360 each 5 02/25/2024 Active 0.5 ml dulaglutide 1.5 mg/ml auto-injector (1 source) GLP-1 Receptor Agonist Trulicity 0.75 MG/0.5ML as directed Subcutaneous ONCE A WEEK Active famotidine 20 mg oral tablet (20 sources) Histamine-2 Receptor Antagonist Start: 08-05-2024 take 1 tablet by mouth in the morning, then take 1 tablet by mouth at bedtime famotidine (PEPCID) 20 mg tablet Take 1 tablet (20 mg total) by mouth in the morning and 1 tablet (20 mg total) before bedtime. 180 tablet 1 08/05/2024 Active 15 ml ferric carboxymaltose 50 mg/ml injection (3 sources) Start: 11-24-2021 Injectafer 750 MG/15ML as directed Intravenous Nov, Active ferrous sulfate 325 mg delayed release oral tablet (20 sources) Start: 05-01-2024 take 1 tablet by mouth every other day ferrous sulfate 325 (65 FE) mg EC tablet Take 1 tablet (325 mg total) by mouth every other day. 05/01/2024 Active Start: 05-01-2024 Ferrous Sulfat e 325 mg (65 mg iron) tablet Active 325 MG PO Every 48 hours 45 April 30, 2024 11:00pm Fish,Bora,Flax Oils-Om3,6,9n o1 ([place] 3-6-9) 1,200 mg capsule (2 sources) Start: 05-01-2024 Fish,Bora,Flax Oils-Om3,6,9no1 ([place] 3-6-9) 1,200 mg capsule Active CAP PO April 30, 2024 11:00pm Start: 05-01-2024 Fish,Bora,Flax Oils-Om3,6,9no1 ([place] 3-6-9) 1,200 mg capsule Active CAP PO May 01, 2024 12:00am 30 actuat fluticasone furoate 0.2 mg/actuat / vilanterol 0.025 mg/actuat dry powder inhaler (20 sources) Corticosteroid, beta2-Adrenergic Agonist Start: 05-01-2024 Fluticasone Furoate-Vilanterol (Breo Ellipta) 200-25 mcg/dose blister with device Active 1 INH INHALATION Daily April 30, 2024 11:00pm Start: 05-01-2024 Fluticasone Fu roate-Vilanterol (Breo Ellipta) 200-25 mcg/dose blister with device Active 1 INH INHALATION Daily May 01, 2024 12:00am Start: 07-03-2023 End: 06-27-2024 fluticasone furoate-vilanter oL (BREO ELLIPTA) 200-25 mcg/dose blister with device USE 1 INHALATION DAILY 90 each 3 06/27/2024 Active take 1 puff(s) by in halation [...] D - 1 Tablet Orally bid Active 3 ml insulin glargine 100 unt/ml [...] Discontinued (Patient Stopped On Own) Start: 05-22-2023 End: 11-26-2023 insulin glargine (LANTUS JEANNETTE OSTAR U-100 INSULIN) 100 unit/mL (3 mL) insulin pen Indications: Type 2 diabetes mellitus with stage 3b chronic kidney disease, with long-term current use of insulin ([facility] [place] Inject 46 Units under the skin in the morning. 45 mL 3 05/22/2023 11/26/2023 Discontinued (Formulary change) End: 05-27-2024 inject 0.46 mL by subcutaneous injection once daily insulin glargine (LANTUS) 100 unit/mL injection Inject 0.46 mL (46 Units total) under the skin nightly. 05/27/2024 Discontinued (Duplicate Listing) inject 46 [IU] by stallings bcutaneous injection [...] Discontinued (Patient Stopped On Own) Start: 07-02-2023 End: 11-26-2023 inject 6 [IU] by subcutaneous injection twice daily before mealtime HumaLOG KwikPen Insulin 100 unit/mL insulin pen INJECT 6 UNITS UNDER THE SKIN TWICE A DAY BEFORE MEALS 15 mL 1 07/02/2023 11/26/2023 Discontinued (Formulary change) End: 05-27-2024 inject 0.06 mL by subcutaneous injection in the morning insulin lispro (HumaLOG) 100 unit/mL injection Inject 0.06 mL (6 Units total) under the skin in the morning and 0.06 mL (6 Units total) in the evening. Inject before meals. 05/27/2024 Discontinued (Duplicate Listing) inject 6 [IU] by sub cutaneous injection [...] 1 tablet by mouth in the morning metoclopramide (REGLAN) 10 mg tablet Take 1 tablet (10 mg total) by mouth in the morning. 05/01/2024 Active Start: 11-20-2022 End: 02-25-2024 metoclopramide (REGLAN) 10 [...] day Active montelukast 10 mg oral tablet (20 sources) Leukotriene Receptor Antagonist Start: 04-04-2023 End: 03-31-2024 montelukast (SINGULAIR) 10 mg tablet take 1 tablet daily 90 tablet 3 03/31/2024 Active Multi For Her 50+ - (10 sources) Multi For Her 50 + - Orally Active pudzrgtg-pzdp-XD-calci um &mins (THERAGRAN-M) 9 mg iron-400 mcg tablet (20 sources) tzhprgss-gkua-GW -calc ium &mins (THERAGRAN-M) 9 mg iron-400 mcg tablet Take 1 tablet by mouth in the morning. Active tpehjkue-muru-CQ -calcium &mins (THERAGRAN-M) 9 mg iron-400 mcg [...] TAB PO Daily May 01, 2024 12:00am nirmatrelvir-ritonavir (PAXLOVID-RENAL) tablets (1 source) Start: 12-10-2024 End: 12-15-2024 take 2 tablets by mouth in the morning nirmatrelvir-ritonavir (PAXLOVID-RENAL) tablets Take 2 tablets by mouth in the morning and 2 tablets before bedtime. Do all this for 5 days. 20 tablet 12/10/2024 12/15/2024 Active [place] 3-6-9 Complex - (10 sources) [place] 3-6-9 Comp fawad - Orally Active omega-3 fatty acids-fish oil 300-1,000 mg capsule (20 sources) take 2 capsules by mouth in [...] Daily April 30, 2024 11:00pm Start: 05-07-2023 End: 08-05-2024 omeprazole (PriLOSEC) 20 mg capsule TAKE 1 CAPSULE TWICE A DAY 180 capsule 3 04/29/2024 08/05/2024 Discontinued (Therapy completed) take 1 capsule by mo ut every twenty-four hours Omeprazole 20 MG 1 cap(s) Orally Once a day Active take 1 capsule by mo uth every twelve hours Omeprazole 20 MG 1 cap(s) Orally bid Active pregabalin 75 mg oral capsule (20 sources) Start: 12-31-2024 take 1 capsule by mouth once daily pregabalin (LYRICA) 75 mg capsule Indications: Lumbar stenosis with neurogenic claudication Take 1 capsule (75 mg total) by mouth daily. 14 capsule 12/31/2024 Active Start: 05-01-2024 End: 12-31-2024 take 1 capsule by mouth once daily pregabalin (LYRICA) 75 mg capsule Indications: Lumbar stenosis with neurogenic claudication Take 1 capsule (75 mg total) by mouth daily. 14 capsule 12/29/2024 12/31/2024 Discontinued (Reorder) [facility] Lyrica 75 [...] 1000 ml sodium chloride 9 mg/ml injection (20 sources) Start: 11-04-20 take 25 mL intravenously [...] product being administered to ensure compatibility. Start: 08-06-2024 End: 08-06-2024 take 25 mL intravenously every hour as needed 25 mL/hr, intravenous, Continuous PRN, When mainline IV needed., Starting on Sun08/06/24 at 0928, Match IVF to base solution of product being administered to ensure compatibility. Start: 07-30-2024 End: 07-30-2024 take 25 mL intravenously every hour as needed 25 mL/hr, intravenous, Continuous PRN, When mainline IV needed., Starting on Sun07/30/24 at 0928, Match IVF to base solution of product being administered to ensure compatibility. Start: 07-23-2024 End: 07-23-2024 take 25 mL intravenously every hour as needed 25 mL/hr, intravenous, Continuous PRN, When mainline IV needed., Starting on Sun07/23/24 at 0916, Match IVF to base solution of product being administered to ensure compatibility. Start: 07-16-2024 End: 07-16-2024 take 25 mL intravenously every hour as needed 25 mL/hr, intravenous, Continuous PRN, When mainline IV needed., Starting on Sun07/16/24 at 0925, Match IVF to base solution of product being administered to ensure compatibility. Start: 07-09-2024 End: 07-09-2024 take 25 mL intravenously every hour as needed 25 mL/hr, intravenous, Continuous PRN, When mainline IV needed., Starting on Sun07/09/24 at 0917, Match IVF to base solution of product being administered to ensure compatibility. Start: 07-02-2024 End: 07-02-2024 take 25 mL intravenously every hour as needed 25 mL/hr, intravenous, Continuous PRN, When mainline IV needed., Starting on Sun07/02/24 at 0935, Match IVF to base solution of product being administered to ensure compatibility. Start: 06-25-2024 End: 06-25-2024 take 25 mL intravenously every hour as needed 25 mL/hr, intravenous, Continuous PRN, When mainline IV needed., Starting on Sun06/25/24 at 0851, Match IVF to base solution of product being administered to ensure compatibility. Start: 06-18-2024 End: 06-18-2024 take 25 mL intravenously every hour as needed 25 mL/hr, intravenous, Continuous PRN, When mainline IV needed., Starting on Sun06/18/24 at 0923, Match IVF to base solution of product being administered to ensure compatibility. Start: 06-11-2024 End: 06-11-2024 take 25 mL intravenously every hour as needed 25 mL/hr, intravenous, Continuous PRN, When mainline IV needed., Starting on Sun06/11/24 at 0911, Match IVF to base solution of product being administered to ensure compatibility. Start: 05-28-2024 End: 05-28-2024 take 25 mL intravenously every hour as needed 25 mL/hr, intravenous, Continuous PRN, When mainline IV needed., Starting on Sun05/28/24 at 0917, Match IVF to base solution of product being administered to ensure compatibility. Start: 05-21-2024 take 25 mL intraveno usly every hour as needed 25 mL/hr, intravenous, Continuous PRN, When mainline IV needed., Starting on Sun05/21/24 at 0915, Match IVF to base solution of product being administered to ensure compatibility. Start: 05-14-2024 take 25 mL intraveno usly every hour as needed 25 mL/hr, intravenous, Continuous PRN, When mainline IV needed., Starting on Sun05/14/24 at 0915, Match IVF to base solution of product being administered to ensure compatibility. Start: 05-07-2024 End: 05-07-2024 take 25 mL intravenously every hour as needed 25 mL/hr, intravenous, Continuous PRN, When mainline IV needed., Starting on Sun05/07/24 at 0923, Match IVF to base solution of product being administered to ensure compatibility. Start: 04-30-2024 End: 04-30-2024 take 25 mL intravenously every hour as needed 25 mL/hr, intravenous, Continuous PRN, When mainline IV needed., Starting on Sun04/30/24 at 0918, Match IVF to base solution of product being administered to ensure compatibility. Start: 04-23-2024 End: 04-23-2024 take 25 mL intravenously every hour as needed 25 mL/hr, intravenous, Continuous PRN, When mainline IV needed., Starting on Sun04/23/24 at 0934, Match IVF to base solution of product being administered to ensure compatibility. Start: 04-16-2024 End: 04-16-2024 take 25 mL intravenously every hour as needed 25 mL/hr, intravenous, Continuous PRN, When mainline IV needed., Starting on Sun04/16/24 at 0913, Match IVF to base solution of product being administered to ensure compatibility. Start: 04-02-2024 End: 04-02-2024 take 25 mL intravenously every hour as needed 25 mL/hr, intravenous, Continuous PRN, When mainline IV needed., Starting on Sun04/02/24 at 0925, Match IVF to base solution of product being administered to ensure compatibility. Start: 03-26-2024 End: 03-26-2024 take 25 mL intravenously every hour as needed 25 mL/hr, intravenous, Continuous PRN, When mainline IV needed., Starting on Sun03/26/24 at 0939, Match IVF to base solution of product being administered to ensure compatibility. Start: 03-19-2024 End: 03-19-2024 take 25 mL intravenously every hour as needed 25 mL/hr, intravenous, Continuous PRN, When mainline IV needed., Starting on Sun03/19/24 at 0935, Match IVF to base solution of product being administered to ensure compatibility. Start: 03-12-2024 End: 03-12-2024 take 25 mL intravenously every hour as needed 25 mL/hr, intravenous, Continuous PRN, When mainline IV needed., Starting on Sun03/12/24 at 0922, Match IVF to base solution [...] sodium chloride 0.9 % infusi on Start: 12-05-2023 End: 12-05-2023 sodium chloride 0.9 % infusi on Start: 11-28-2023 End: 11-28-2023 sodium chloride 0.9 % infusi on Start: 11-21-2023 End: 11-21-2023 sodium chloride 0.9 % infusi on theophylline 400 mg extended release oral tablet (20 sources) Methylxanthine Start: 03-19-2023 End: 09-11-2024 theophylline (UNIPHYL) 400 mg 24 hr tablet TAKE 1 TABLET DAILY 90 tablet 3 09/11/2024 Active traMADol hydrochloride 50 mg oral tablet [...] Drug Class(es) Dates Sig (Normalized) Sig (Original) aspirin 81 mg delayed release oral tablet (20 sources) Platelet Aggregation Inhibitor, Nonsteroidal Anti-inflammatory Drug End: 05-27-2024 take 1 tablet by mouth in the morning aspirin 81 mg Take 1 tablet (81 mg total) by mouth in the morning. 05/27/2024 Discontinued (Therapy completed) estrogens, conjugated (group home) 0.625 mg/ml vaginal cream (7 sources) Estrogen End: 11-26-2023 conjugated estrogens (PREMARIN) vaginal cream Insert 0.5 g into the vagina nightly. 0 11/26/2023 Discontinued (Therapy completed) hyoscyamine sulfate 0.125 mg oral tablet (7 sources) End: 11-26-2023 take 1 tablet by mouth every four hours as needed for pain hyoscyamine (ANASPAZ,LEVSIN) 0.125 mg tablet Take 1 tablet (0.125 mg total) by mouth every 4 (four) hours as needed for cramping. 0 11/26/2023 Discontinued 50 ml magnesium sulfate 40 mg/ml injection (20 sources) Start: 11-04-2024 End: 11-04-2024 2,000 mg, [...] . Correct magnesium prior to potassium. Start: 08-06-2024 End: 08-06-2024 2,000 mg, intravenous, at 25 mL/hr, Administer over 120 Minutes, Once, On Sun08/06/24 at 0945, For 1 dose, For magnesium level greater than 1.5 mg/dL . Correct magnesium prior to potassium. Start: 07-30-2024 End: 07-30-2024 2,000 mg, intravenous, at 25 mL/hr, Administer over 120 Minutes, Once, On Sun07/30/24 at 0930, For 1 dose, For magnesium level greater than 1.5 mg/dL . Correct magnesium prior to potassium. Start: 07-23-2024 End: 07-23-2024 2,000 mg, intravenous, at 25 mL/hr, Administer over 120 Minutes, Once, On Sun07/23/24 at 0930, For 1 dose, For magnesium level greater than 1.5 mg/dL . Correct magnesium prior to potassium. Start: 07-16-2024 End: 07-16-2024 4,000 mg, intravenous, at 25 mL/hr, Administer over 240 Minutes, Once, On Sun07/16/24 at 0930, For 1 dose, For magnesium level less than 1.5 mg/dL. Correct magnesium prior to potassium. Start: 07-09-2024 End: 07-09-2024 2,000 mg, intravenous, at 25 mL/hr, Administer over 120 Minutes, Once, On Sun07/09/24 at 0930, For 1 dose, For magnesium level greater than 1.5 mg/dL . Correct magnesium prior to potassium. Start: 07-02-2024 End: 07-02-2024 2,000 mg, intravenous, at 25 mL/hr, Administer over 120 Minutes, Once, On Sun07/02/24 at 0945, For 1 dose, For magnesium level greater than 1.5 mg/dL . Correct magnesium prior to potassium. Start: 06-25-2024 End: 06-25-2024 2,000 mg, intravenous, at 25 mL/hr, Administer over 120 Minutes, Once, On Sun06/25/24 at 0900, For 1 dose, For magnesium level greater than 1.5 mg/dL . Correct magnesium prior to potassium. Start: 06-18-2024 End: 06-18-2024 2,000 mg, intravenous, at 25 mL/hr, Administer over 120 Minutes, Once, On Sun06/18/24 at 0930, For 1 dose, For magnesium level greater than 1.5 mg/dL . Correct magnesium prior to potassium. Start: 06-11-2024 End: 06-11-2024 2,000 mg, intravenous, at 25 mL/hr, Administer over 120 Minutes, Once, On Sun06/11/24 at 0915, For 1 dose, For magnesium level greater than 1.5 mg/dL . Correct magnesium prior to potassium. Start: 05-28-2024 End: 05-28-2024 2,000 mg, intravenous, at 25 mL/hr, Administer over 120 Minutes, Once, On Sun05/28/24 at 0930, For 1 dose, For magnesium level greater than 1.5 mg/dL . Correct magnesium prior to potassium. Start: 05-21-2024 End: 05-21-2024 2,000 mg, intravenous, at 25 mL/hr, Administer over 120 Minutes, Once, On Sun05/21/24 at 0930, For 1 dose, For magnesium level greater than 1.5 mg/dL . Correct magnesium prior to potassium. Start: 05-14-2024 End: 05-14-2024 2,000 mg, intravenous, at 25 mL/hr, Administer over 120 Minutes, Once, On Sun05/14/24 at 0930, For 1 dose, For magnesium level greater than 1.5 mg/dL . Correct magnesium prior to potassium. Start: 05-07-2024 End: 05-07-2024 4,000 mg, intravenous, at 25 mL/hr, Administer over 240 Minutes, Once, On Sun05/07/24 at 0930, For 1 dose, For magnesium level less than 1.5 mg/dL. Correct magnesium prior to potassium. Start: 04-30-2024 End: 04-30-2024 2,000 mg, intravenous, at 25 mL/hr, Administer over 120 Minutes, Once, On Sun04/30/24 at 0930, For 1 dose, For magnesium level greater than 1.5 mg/dL . Correct magnesium prior to potassium. Start: 04-23-2024 End: 04-23-2024 4,000 mg, intravenous, at 25 mL/hr, Administer over 240 Minutes, Once, On Sun04/23/24 at 0945, For 1 dose, For magnesium level less than 1.5 mg/dL. Correct magnesium prior to potassium. Start: 04-16-2024 End: 04-16-2024 2,000 mg, intravenous, at 25 mL/hr, Administer over 120 Minutes, Once, On Sun04/16/24 at 0915, For 1 dose, For magnesium level greater than 1.5 mg/dL . Correct magnesium prior to potassium. Start: 04-09-2024 End: 04-09-2024 2,000 mg, intravenous, at 25 mL/hr, Administer over 120 Minutes, Once, On Sun04/09/24 at 0930, For 1 dose, For magnesium level greater than 1.5 mg/dL . Correct magnesium prior to potassium. Start: 04-02-2024 End: 04-02-2024 2,000 mg, intravenous, at 25 mL/hr, Administer over 120 Minutes, Once, On Sun04/02/24 at 0930, For 1 dose, For magnesium level greater than 1.5 mg/dL . Correct magnesium prior to potassium. Start: 03-26-2024 End: 03-26-2024 2,000 mg, intravenous, at 25 mL/hr, Administer over 120 Minutes, Once, On Sun03/26/24 at 0945, For 1 dose, For magnesium level greater than 1.5 mg/dL . Correct magnesium prior to potassium. Start: 03-19-2024 End: 03-19-2024 2,000 mg, intravenous, at 25 mL/hr, Administer over 120 Minutes, Once, On Sun03/19/24 at 0945, For 1 dose, For magnesium level greater than 1.5 mg/dL . Correct magnesium prior to potassium. Start: 03-12-2024 End: 03-12-2024 2,000 mg, intravenous, at 25 mL/hr, Administer over 120 Minutes, Once, On Sun03/12/24 at 0930, For 1 dose, For magnesium [...] in iso-osmotic water (40 mg/mL premix) Start: 12-05-2023 End: 12-05-2023 magnesium sulfate IVPB 2000 mg/50 mL in iso-osmotic water (40 mg/mL premix) Start: 11-28-2023 End: 11-28-2023 magnesium sulfate IVPB 2000 mg/50 mL in iso-osmotic water (40 mg/mL premix) Start: 11-21-2023 End: 11-21-2023 magnesium sulfate IVPB 4000 mg/100 mL in iso-osmotic water (40 mg/mL premix) metroNIDAZOLE 0.01 mg/mg topical gel (7 sources) Nitroimidazole Antimicrobial Start: 05-22-2023 End: 11-26-2023 metroNIDAZOLE (MetrogeL) 1 % gel Indications: Rosacea Apply 1 Application topically in the morning. 45 g 1 05/22/2023 11/26/2023 Discontinued (Therapy completed) Problems Active Problems Problem Classification Problem Date Documented Date Episodic/Chronic Anxiety disorders (5 sources) Anxiety; Translations: [Anxiety disorder, unspecified] Onset: 12-27-2024 Chronic Asthma (20 sources) Asthma; Translations: [Unspecified asthma, [...] atherosclerosis and other heart disease (20 sources) Atherosclerotic heart disease of [place] coronary artery without angina pectoris; Translations: [Coronary atherosclerosis] Onset: 2 Chronic Deficiency and other anemia (20 sources) [...] sources) Mixed hyperlipidemia; Translations: [Hyperlipidemia] Onset: 2 Chronic Esophageal disorders (20 sources) Ross's esophagus; 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] Onset: 7 09-26-2024 Chronic Essential hypertension (20 sources) Essential (primary) hypertension; Translations: [Essential hypertension] Onset: 2 Chronic Genitourinary symptoms and ill-defined conditions (2 sources) Unspecified urinary incontinence; Translations: [Urinary incontinence] Onset: 4 02-25-2024 Chronic Hypertension with complications and secondary hypertension (20 sources) Hypertensive renal disease; Translations: [Hypertensive chronic kidney disease with stage 1 through stage 4 chronic kidney disease, or unspecified chronic kidney disease] Onset: 1 Resolved: 2 Chronic Nausea and vomiting (5 sources) Nausea; Translations: [Nausea] Onset: 5 12-27-2024 Episodic Osteoarthritis (20 sources) Osteoarthritis of knee; Translations: [...] unspecified eye] Onset: 3 07-24-2023 Chronic Other gastrointestinal disorders (1 source) Constipation; Translations: [Constipation, unspecified] 12-27-2024 Episodic Other hereditary and degenerative nervous system conditions (20 sources) Essential tremor; Translations: [Essential tremor] Onset: 8 09-01-2022 Chronic Other infections; including parasitic (1 source) History of sepsis; Translations: [Personal history of other infectious and parasitic diseases] 12-27-2024 Episodic Other nervous system disorders (1 source) Other chronic pain; Translations: [OTHER CHRONIC PAIN] Onset: 2 Chronic Other nutritional; endocrine; and metabolic disorders (20 sources) Hypomagnesemia; Translations: [Hypomagnesemia] Onset: 4 05-01-2024 Chronic Other nutritional; endocrine; and metabolic disorders [...] metabolic disease] Episodic Other upper respiratory disease (20 sources) Perennial allergic rhinitis; Translations: [Other allergic rhinitis] Onset: 2 09-27-2024 Chronic Residual codes; unclassified (20 sources) Obstructive sleep apnea syndrome; Translations: [Obstructive sleep apnea (adult) (pediatric)] Onset: 2 09-01-2022 Chronic Spondylosis; intervertebral disc disorders; other back problems (1 source) Postlaminectomy syndrome, not elsewhere classified; Translations: [POSTLAMINECTOMY SYNDROME NEC] Onset: 2 Chronic Spondylosis; intervertebral disc disorders; other back problems (20 sources) Intervertebral disc disorders with radiculopathy, lumbar region; Translations: [Spinal stenosis, lumbar region without neurogenic claudication] Onset: 2 Episodic Unclassified (3 sources) LOW BACK PAIN, UNSPECIFIED; Translations: [LOW BACK PAIN, UNSPECIFIED] Onset: 2 Unclassified (1 source) Face to Face for incont supplies Onset: 4 Unclassified (1 source) Outpatient Infusion Onset: 4 Urinary tract infections (5 sources) Acute cystitis; Translations: [Acute cystitis with hematuria] Onset: 5 12-27-2024 Episodic Past or Other Problems Problem Classification Problem Date Documented Da te Episodic/Chronic Allergic reactions (20 sources) Environmental allergy; [...] Genitourinary symptoms and ill-defined conditions (20 sources) Dysuria; Translations: [Microalbuminuria] Onset: 10-16-2016 09-01-2022 Episodic Mood disorders (20 sources) Mood disorders Onset: 02-25-2024 Resolved: 05-27-2024 05-27-2024 Neoplasms of unspecified nature or uncertain behavior (20 sources) Neoplasm of uncertain behavior of skin of finger; Translations: [Neoplasm of uncertain behavior of skin] Onset: 09-01-2022 09-01-2022 Episodic Other aftercare (3 sources) group home (current) use of insulin; Translations: [[facility] CURRENT USE OF INSULIN] Onset: 11-11-2022 Episodic Other and unspecified benign neoplasm (20 sources) Gastric polyp; Translations: [Benign neoplasm of stomach] Onset: 05-09-2017 09-26-2024 Episodic Other connective tissue disease (1 source) Muscle wasting and atrophy, not elsewhere classified, unspecified site; Translations: [MUSCLE WASTING ATROPHY NEC UNS SITE] Onset: 04-27-2022 Episodic Other gastrointestinal disorders (1 source) Fecal incontinence with fecal urgency; Translations: [Full incontinence of feces] 05-27-2024 Episodic Other lower respiratory disease (20 sources) Disorder of lung; Translations: [Other disorders of lung] Onset: 04-24-2013 11-14-2022 Episodic Other lower respiratory disease (20 sources) Dyspnea; Translations: [Dyspnea, unspecified] Onset: 04-24-2013 11-14-2022 Episodic Other nervous system disorders (1 source) Ataxia, unspecified; Translations: [Ataxia, unspecified] Onset: 02-25-2024 Episodic Other nervous system disorders (20 sources) Paresthesia; Translations: [Paresthesia of skin] Onset: 09-01-2022 09-01-2022 Episodic Other nervous system disorders (1 source) Abnormal gait; Translations: [Unspecified abnormalities of gait and mobility] 02-25-2024 Episodic Other nervous system disorders (2 sources) Paresthesia [...] and tophaceous disease] Onset: 05-27-2024 05-01-2024 Episodic Other upper respiratory infections (1 source) Rhinitis; Translations: [Acute nasopharyngitis [common cold]] 05-27-2024 Episodic Screening and history of mental health and substance abuse codes (1 source) Patient encounter status; Translations: [Encounter for screening for depression] 01-08-2024 Episodic Unclassified (1 source) LOW BACK PAIN, UNSPECIFIED; Translations: [LOW BACK PAIN, UNSPECIFIED] Onset: 08-02-2022 Results Test Name Value Interpretation Reference Range Facility Urine Cultureon 11-20-2024 Bacteria identified Cx Nom (U) ORGANISM: Escherichia coli (O:ESCCOL) Colver Count >100,000 Aerobic URBAN Charge (NMIC56) -- [...] RESISTANT TO ALL B-LACTAM DRUGS. PERFORMED BY: [address] [place] [address] PATHOLOGIST ROW BOSS MARIO PUTNAM M.D. Normal [facility] Comment on above: Performed By: #### C UU #### [address] [address] [facility] MAGNESIUMon 11-17-2024 Magnesium [Mass/Vol] 1.8 mg/dL Normal 1.8-2.6 [facility] Comment on above: Performed By: #### 1 9123-9 ####[facility] ([id number])[address] [place] [address] MAGNESIUMon 11-10-2024 Magnesium [Mass/Vol] 1.8 mg/dL Normal 1.8-2.6 [facility] Comment on above: Performed By: #### 1 9123-9 ####[facility] ([id number])[address] [place] [address] MAGNESIUMon 11-03-2024 Magnesium [Mass/Vol] 1.7 mg/dL Low 1.8-2.6 [facility] Comment on above: Performed By: #### 1 9123-9 ####[facility] ([id number])[address] [place] [address] MAGNESIUMon 10-27-2024 Magnesium [Mass/Vol] 1.8 mg/dL Normal 1.8-2.6 [facility] Comment on above: Performed By: #### 1 9123-9 ####[facility] ([id number])[address] [place] [address] MAGNESIUMon 10-20-2024 Magnesium [Mass/Vol] 1.9 mg/dL Normal 1.8-2.6 [facility] Comment on above: Performed By: #### 1 9123-9 ####[facility] ([id number])[address] [place] [address] MAGNESIUMon 10-13-2024 Magnesium [Mass/Vol] 1.8 mg/dL Normal 1.8-2.6 [facility] Comment on above: Performed By: #### 1 9123-9 ####[facility] ([id number])[address] [place] [address] MAGNESIUMon 10-06-2024 Magnesium [Mass/Vol] 1.7 mg/dL Low 1.8-2.6 [facility] Comment on above: Performed By: #### 1 9123-9 ####[facility] ([id number])[address] [place] [address] MAGNESIUMon 09-29-2024 Magnesium [Mass/Vol] 1.7 mg/dL Low 1.8-2.6 [facility] Comment on above: Performed By: #### 1 9123-9 ####[facility] ([id number])[address] [place] [address] Glucose Glucometer (BldC) [M ass/Vol]on 09-26-2024 Glucose [Mass/Vol] 154 mg/dL High 65-99 [facility] Surgical Pathologyon 024 Surgical Pathology Normal [facility] Comment on above: Result Comment: [facility] [address] [place] [address] Surgical Pathology ConsultationPatient Name:ADORE WOLFF:1940 (Age: 83)Gender:FTaken:4Reported:4Physician(s):Daniel Guerrero MD ([phone])Copy To: Rec. #:[id number]: #[id number] Pathologic Diagnosis1. Duodenum, second portion, biopsy: Duodenal mucosa with no significant diagnostic abnormality. No evidence of celiac disease.2. Duodenum, bulb, biopsy: Ectopic gastric mucosa.3. Stomach, polypectomy: Fundic gland polyp.4. Esophagus, distal, biopsy: Junctional mucosa with no significant diagnostic abnormality. No evidence of intestinal metaplasia. Report Electronically Signed Outrg/4Rpaula Coto MDInter[place] [address], License number: [id number].Clinical History Ross's esophagus.Gross Description1. Received in formalin labeled KUSS, second portion of duodenum are two light abbott soft tissue bits, 0.2 cm each. The specimen is filtered and entirely submitted in a single cassette. (1, ns, [id number],m3) DM.2. .Received in formalin labeled KUSS, duodenal bulb biopsies are three light abbott soft tissue bits, 0.2 cm each. The specimen is filtered and entirely submitted in a single cassette. (1, ns, [id number],m3) DM.3. Received in formalin labeled KUSS, fundic gland polyp is a light abbott soft tissue bit, 0.3 cm. The specimen is filtered and entirely submitted in a single cassette. (1, ns, [id number],m3) DM.4. Received in formalin labeled KUSS, distal esophageal biopsy are three pale-abbott soft tissue bits, 0.2 cm each. The specimen is filtered and entirely submitted in a single cassette. (1, ns, [id number],m3) DM.dm/09/27/2024GRSpecimen(s) Received1: Second portion of duodenum biopsies2: Duodenal bulb biopsy3: Fundic gland polyp4: Esophageal distal biopsyFee Codes(s):1; 911668; 796157; 396990; 86984 MAGNESIUMon 09-22-2024 Magnesium [Mass/Vol] 1.8 mg/dL Normal 1.8-2.6 [facility] Comment on above: Performed By: #### 1 9123-9 ####[facility] ([id number])[address] [place] [address] MAGNESIUMon 09-15-2024 Magnesium [Mass/Vol] 1.8 mg/dL Normal 1.8-2.6 [facility] Comment on above: Performed By: #### 1 9123-9 ####[facility] ([id number])[address] [place] [address] MAGNESIUMon 09-08-2024 Magnesium [Mass/Vol] 1.7 mg/dL Low 1.8-2.6 [facility] Comment on above: Performed By: #### 1 9123-9 ####[facility] ([id number])[address] [place] [address] MAGNESIUMon 09-01-2024 Magnesium [Mass/Vol] 1.8 mg/dL Normal 1.8-2.6 [facility] Comment on above: Performed By: #### 1 9123-9 ####[facility] ([id number])[address] [place] [address] MAGNESIUMon 08-25-2024 Magnesium [Mass/Vol] 1.6 mg/dL Low 1.8-2.6 [facility] Comment on above: Performed By: #### 1 9123-9 ####[facility] ([id number])[address] [place] [address] MAGNESIUMon 08-18-2024 Magnesium [Mass/Vol] 1.6 mg/dL Low 1.8-2.6 [facility] Comment on above: Performed By: #### 1 9123-9 ####[facility] ([id number])[address] [place] [address] MAGNESIUMon 08-11-2024 Magnesium [Mass/Vol] 1.6 mg/dL Low 1.8-2.6 [facility] Comment on above: Performed By: #### 1 9123-9 ####[facility] ([id number])[address] [place] [address], [place] [address] MAGNESIUMon 08-04-2024 Magnesium [Mass/Vol] 1.5 mg/dL Low 1.8-2.6 [facility] Comment on above: Performed By: #### 1 9123-9 ####[facility] ([id number])[address] [place] [address], [place] [address] MAGNESIUMon 07-28-2024 Magnesium [Mass/Vol] 1.5 mg/dL Low 1.8-2.6 [facility] Comment on above: Performed By: #### 1 9123-9 ####[facility] ([id number])[address] [place] [address], [place] [address] MAGNESIUMon 07-21-2024 Magnesium [Mass/Vol] 1.6 mg/dL Low 1.8-2.6 [facility] Comment on above: Performed By: #### 1 9123-9 ####[facility] ([id number])[address] [place] [address], [place] [address] MAGNESIUMon 07-15-2024 Magnesium [Mass/Vol] 1.5 mg/dL Low 1.8-2.6 [facility] Comment on above: Performed By: #### 1 9123-9 ####[facility] ([id number])[address] [place] [address] MAGNESIUMon 07-07-2024 Magnesium [Mass/Vol] 1.6 mg/dL Low 1.8-2.6 [facility] Comment on above: Performed By: #### 1 9123-9 ####[facility] ([id number])[address] [place] [address], [place] [address] MAGNESIUMon 06-30-2024 Magnesium [Mass/Vol] 1.6 mg/dL Low 1.8-2.6 [facility] Comment on above: Performed By: #### 1 9123-9 ####[facility] ([id number])[address] [place] [address] MAGNESIUMon 06-23-2024 Magnesium [Mass/Vol] 1.7 mg/dL Low 1.8-2.6 [facility] Comment on above: Performed By: #### 1 9123-9 ####[facility] ([id number])[address] [place] [address] MAGNESIUMon 06-16-2024 Magnesium [Mass/Vol] 1.7 mg/dL Low 1.8-2.6 [facility] Comment on above: Performed By: #### 1 9123-9 ####[facility] ([id number])[address] [place] [address] MAGNESIUMon 06-09-2024 Magnesium [Mass/Vol] 1.7 mg/dL Low 1.8-2.6 [facility] Comment on above: Performed By: #### 1 9123-9 ####[facility] ([id number])[address] [place] [address] MAGNESIUMon 06-02-2024 Magnesium [Mass/Vol] 1.6 mg/dL Low 1.8-2.6 [facility] Comment on above: Performed By: #### 1 9123-9 ####[facility] ([id number])[address] [place] [address] URINE CULTUREon 05-30-2024 Bacteria identified Cx Nom [...] F TRIMETH/SULFAMETHOXAZOL E S <=11/30 F Susceptible [facility] Comment on above: Performed By: #### 6 30-4 #### [facility] ([id number]) [address], [address] [place] [address] POCT Hemoglobin A1con 2023 HbA1c (Bld) [Mass fraction] 7.1 g/dL Abnormal 4 - 7 g/dL [facility] Interpretation and review of laboratory results Abnormal [facility] POCT urinalysis dipstick onl yon 05-27-2024 Appearance (U) cloudy [facility] External Poct Urine Bilirubin Negative [facility] External Poct Urine Blood Trace [facility] External Poct Urine Color yellow [facility] External Poct Urine Glucose Negative [facility] External Poct Urine Ketones Negative [facility] External Poct Urine Leukocyte Esterase Moderate [facility] External Poct Urine Nitrite Negative [facility] External Poct Urine Ph 5.5 [facility] External Poct Urine Protein 3+ [facility] Comment on above: >=300 External Poct Urine Specific [place] 1.025 [facility] External Poct Urine Urobilinogen 0.2 [facility] URINE CULTUREon 05-27-2024 Bacteria identified Cx Nom (U) CULTURE RESULTS MULTIPLE SPECIES PRESENT. PROBABLE COLLECTION CONTAMINATION. SUGGEST REPEAT SPECIMEN. Normal [facility] Comment on above: Performed By: #### 6 30-4 #### [facility] ([id number]) [address], [address] [place] [address] MAGNESIUMon 05-26-2024 Magnesium [Mass/Vol] 1.6 mg/dL Low 1.8-2.6 [facility] Comment on above: Performed By: #### 1 9123-9 ####[facility] ([id number])[address] [place] [address] MAGNESIUMon 05-19-2024 Magnesium [Mass/Vol] 1.7 mg/dL Low 1.8-2.6 [facility] Comment on above: Performed By: #### 1 9123-9 ####[facility] ([id number])[address] [place] [address] MAGNESIUMon 05-12-2024 Magnesium [Mass/Vol] 1.6 mg/dL Low 1.8-2.6 [facility] Comment on above: Performed By: #### 1 9123-9 ####[facility] ([id number])[address] [place] [address] MAGNESIUMon 05-05-2024 Magnesium [Mass/Vol] 1.4 mg/dL Low 1.8-2.6 [facility] Comment on above: Performed By: #### 1 9123-9 ####[facility] ([id number])[address] [place] [address] MAGNESIUMon 04-28-2024 Magnesium [Mass/Vol] 1.5 mg/dL Low 1.8-2.6 [facility] Comment on above: Performed By: #### 1 9123-9 ####[facility] ([id number])[address] [place] [address] COMPLETE BLOOD COUNTon 04-21 Erythrocyte distribution width (RBC) [Ratio] 16.6 % High 11.5-15.0 [facility] Comment on above: Performed By: #### C BC, UPCR, FEPR, 24198-3, RENAL, 3084-1, 2276-4, 2731-8, 41245-7 ####[facility] ([id number])[address], [address], [place] [address] Hematocrit (Bld) [Volume fraction] 33.8 % Low 35-47 [facility] Comment on above: Performed By: #### C BC, UPCR, FEPR, 64688-7, RENAL, 3084-1, 2276-4, 2731-8, 68232-0 ####[facility] ([id number])[address], [address] [address] Hemoglobin (Bld) [Mass/Vol] 11.0 g/dL Low 11.7-15.5 [facility] Comment on above: Performed By: #### C BC, UPCR, FEPR, 42589-4, RENAL, 4-1, 2276-4, 2731-8, 49819-3 ####[facility] ([id number])[address], [address] [address] MCH (RBC) [Entitic mass] 30.0 pg Normal 27-34 [facility] Comment on above: Performed By: #### C BC, UPCR, FEPR, 31290-7, RENAL, 4-1, 2276-4, 2731-8, 57214-5 ####[facility] ([id number])[address] [address] MCHC (RBC) [Mass/Vol] 32.7 g/dL Normal 32-36 [facility] Comment on above: Performed By: #### C BC, UPCR, FEPR, 23533-8, RENAL, 4-1, 2276-4, 2731-8, 17005-6 ####[facility] ([id number])[address] [address] MCV (RBC) [Entitic vol] 92 fL Normal 80-100 [facility] Comment on above: Performed By: #### C BC, UPCR, FEPR, 04071-4, RENAL, 4-1, 2276-4, 2731-8, 41886-1 ####[facility] ([id number])[address], [address] [address] Platelet mean volume (Bld) [Entitic vol] 9.5 fL Normal 7-12 [facility] Comment on above: Performed By: #### C BC, UPCR, FEPR, 21149-4, RENAL, 3084-1, 2276-4, 2731-8, 85560-4 ####[facility] ([id number])[address], [place] [address] Platelets (Bld) [#/Vol] 182 10*3/uL Normal 150-450 [facility] Comment on above: Performed By: #### C BC, UPCR, FEPR, 42492-5, RENAL, 3084-1, 2276-4, 2731-8, 51864-4 ####[facility] ([id number])[address], [address], [place] [address] RBC COUNT 3.68 X10E12/L Low 3.80-5.20 [facility] Comment on above: Performed By: #### C BC, UPCR, FEPR, 43016-3, RENAL, 3084-1, 2276-4, 2731-8, 69877-2 ####[facility] ([id number])[address], [address], [place] [address] WBC (Bld) [#/Vol] 6.2 10*3/uL Normal 4.0-11.0 [facility] Comment on above: Performed By: #### C BC, UPCR, FEPR, 34367-1, RENAL, 3084-1, 2276-4, 2731-8, 43587-3 ####[facility] ([id number])[address], [address] [address] FERRITINon 04-21-2024 Ferritin [Mass/Vol] 113 ng/mL Normal 11-307 [facility] Comment on above: Performed By: #### C BC, UPCR, FEPR, 95881-9, RENAL, 3084-1, 2276-4, 2731-8, 87167-9 ####[facility] ([id number])[address], [place] [address] IRON PROFILEon 04-21-2024 Iron [Mass/Vol] 56 ug/dL Normal 50-170 [facility] Comment on above: Performed By: #### C BC, UPCR, FEPR, 98642-9, RENAL, 3084-1, 2276-4, 2731-8, 73101-3 ####[facility] ([id number])[address], [address] [place] [address] IRON BINDING 307 ug/dL Normal 250-425 [facility] Comment on above: Performed By: #### C BC, UPCR, FEPR, 53403-8, RENAL, 3084-1, 2276-4, 2731-8, 31262-6 ####[facility] ([id number])[address] [address] IRON SATURATION 18 % SATURATION Normal 15-50 [facility] Comment on above: Performed By: #### C BC, UPCR, FEPR, 95002-2, RENAL, 3084-1, 2276-4, 2731-8, 60789-9 ####[facility] ([id number])[address] [address] MAGNESIUMon 04-21-2024 Magnesium [Mass/Vol] 1.4 mg/dL Low 1.8-2.6 [facility] Comment on above: Performed By: #### C BC, UPCR, FEPR, 03936-1, RENAL, 3084-1, 2276-4, 2731-8, 93406-2 ####[facility] ([id number])[address] [address] [address] [place] [address] PROTEIN CREAT RATIOon 2023 RANDOM URINE PROTEIN 470 mg/L High <120 [facility] Comment on above: Performed By: #### C BC, UPCR, FEPR, 13433-3, RENAL, 3084-1, 2276-4, 2731-8, 38862-1 ####[facility] ([id number])[address], [place] [address] U/PRO/CCO RATIO CALC 0.50 High <0.2 [facility] Comment on above: Result Comment: Neph rotic Syndrome is associated with ratios >3.5 Performed By: #### C BC, UPCR, FEPR, 47719-4, RENAL, 3084-1, 2276-4, 2731-8, 80832-7 ####[facility] ([id number])[address], [place] [address] URINE CREATININE,RDM 94.29 mg/dL Normal [facility] Comment on above: Performed By: #### C BC, UPCR, FEPR, 03604-1, RENAL, 3084-1, 2276-4, 2731-8, 67244-3 ####[facility] ([id number])[address], [address], [place] [address] Parathyrin.intact [Mass/Vol] on 04-21-2024 PTH INTACT 168 pg/mL High 12-88 [facility] Comment on above: Performed By: #### C BC, UPCR, FEPR, 63555-1, RENAL, 3084-1, 2276-4, 2731-8, 29040-8 ####[facility] ([id number])[address], [address], [place] [address] RENAL PANELon 04-21-2024 Albumin [Mass/Vol] 3.7 g/dL Normal 3.2-5.3 [facility] Comment on above: Performed By: #### C BC, UPCR, FEPR, 13019-8, RENAL, 3084-1, 2276-4, 2731-8, 60285-7 ####[facility] ([id number])[address], [address], [place] [address] Anion gap [Moles/Vol] 11 mmol/L Normal 5-15 [facility] Comment on above: Performed By: #### C BC, UPCR, FEPR, 04084-0, RENAL, 3084-1, 2276-4, 2731-8, 80557-8 ####[facility] ([id number])[address], [address], [place] [address] Calcium [Mass/Vol] 8.9 mg/dL Normal 8.5-10.5 [facility] Comment on above: Performed By: #### C BC, UPCR, FEPR, 47767-7, RENAL, 3084-1, 2276-4, 2731-8, 38899-7 ####[facility] ([id number])[address], [address] [place] [place] [address] Chloride [Moles/Vol] 106 mmol/L Normal 98-109 [facility] Comment on above: Performed By: #### C BC, UPCR, FEPR, 87865-0, RENAL, 3084-1, 2276-4, 2731-8, 05082-6 ####[facility] ([id number])[address], [address] [address] CO2 [Moles/Vol] 26 mmol/L Normal 22-32 [facility] Comment on above: Performed By: #### C BC, UPCR, FEPR, 64948-9, RENAL, 3084-1, 2276-4, 2731-8, 72109-0 ####[facility] ([id number])[address], [address] [address] Creatinine [Mass/Vol] 1.78 mg/dL High 0.40-1.00 [facility] Comment on above: Result Comment: METH OD TRACEABLE TO IDMS STANDARD Performed By: #### C BC, UPCR, FEPR, 72861-7, RENAL, 3084-1, 2276-4, 2731-8, 66500-1 ####[facility] ([id number])[address] [address], [place] [address] GFR/1.73 sq M.predicted among non-blacks MDRD (S/P/Bld) [Vol rate/Area] 28 mL/min/{1.73_m2} Low >59 [facility] Comment on above: Result Comment: Repo rted eGFR is based on theCKD-EPI 2020 equation that doesnot use a race coefficient. Performed By: #### C BC, UPCR, FEPR, 23225-0, RENAL, 3084-1, 2276-4, 2731-8, 49917-6 ####[facility] ([id number])[address] [address] Glucose [Mass/Vol] 157 mg/dL High 65-99 [facility] Comment on above: Performed By: #### C BC, UPCR, FEPR, 35399-3, RENAL, 3084-1, 2276-4, 2731-8, 15212-0 ####[facility] ([id number])[address] [address], [place] [address] Phosphate [Mass/Vol] 3.8 mg/dL Normal 2.4-4.9 [facility] Comment on above: Performed By: #### C BC, UPCR, FEPR, 83797-3, RENAL, 3084-1, 2276-4, 2731-8, 47642-8 ####[facility] ([id number])[address] [place] [address] Potassium [Moles/Vol] 4.2 mmol/L Normal 3.5-5.0 [facility] Comment on above: Performed By: #### C BC, UPCR, FEPR, 30110-2, RENAL, 3084-1, 2276-4, 2731-8, 56215-1 ####[facility] ([id number])[address] [address] [address] Sodium [Moles/Vol] 143 mmol/L Normal 134-146 [facility] Comment on above: Performed By: #### C BC, UPCR, FEPR, 16066-6, RENAL, 3084-1, 2276-4, 2731-8, 90345-1 ####[facility] ([id number])[address], [address], [place] [address] Urea nitrogen [Mass/Vol] 42 mg/dL High 5-27 [facility] Comment on above: Performed By: #### C BC, UPCR, FEPR, 97847-1, RENAL, 3084-1, 2276-4, 2731-8, 70199-1 ####[facility] ([id number])[address], [address] [place] [address] URIC ACIDon 04-21-2024 Urate [Mass/Vol] 4.3 mg/dL Normal 2.6-7.2 [facility] Comment on above: Performed By: #### C BC, UPCR, FEPR, 59493-4, RENAL, 3084-1, 2276-4, 2731-8, 84265-8 ####[facility] ([id number])[address], [address] [place] [address] URINALYSISon 04-21-2024 Bilirubin Ql (U) Negative Normal NEG [facility] Comment on above: Performed By: #### U A ####[facility] ([id number])[address], [address], [place] [address] BLOOD/HGB Trace Abnormal NEG [facility] Comment on above: Performed By: #### U A ####[facility] ([id number])[address], [address] [place] [address], [place] [address] Color (U) YELLOW Normal YELLOW [facility] Comment on above: Performed By: #### U A ####[facility] ([id number])[address], [address], [place] [address] Glucose Ql (U) Negative Normal NEG [facility] Comment on above: Performed By: #### U A ####[facility] ([id number])[address], [address] [address] Ketones Ql (U) Negative Normal NEG [facility] Comment on above: Performed By: #### U A ####[facility] ([id number])[address], [address] [place] [address] Leukocyte esterase Test strip Ql (U) Large Abnormal NEG [facility] Comment on above: Performed By: #### U A ####[facility] ([id number])[address], [address] [place] [address] MUCOUS PRESENT Abnormal NONE [facility] Comment on above: Performed By: #### U A ####[facility] ([id number])[address], [address], [place] [address] Nitrite Ql (U) Negative Normal NEG [facility] Comment on above: Performed By: #### U A ####[facility] ([id number])[address], [address] [place] [address] pH (U) 6.0 [pH] Normal 5.0-8.5 [facility] Comment on above: Performed By: #### U A ####[facility] ([id number])[address] [address] [place] [address] Protein Ql (U) 50 mg/dL Abnormal NEG [facility] Comment on above: Performed By: #### U A ####[facility] ([id number])[address], [address] [place] [address] R.B.CELLS 5 /hpf Normal 0-5 [facility] Comment on above: Performed By: #### U A ####[facility] ([id number])[address], [address], [place] [address] Specific gravity (U) [Rel density] 1.014 Normal 1.003-1.035 [facility] Comment on above: Performed By: #### U A ####[facility] ([id number])[address] [address], [place] [address] SQUAMOUS EPITHELIUM 1 /hpf Normal 0-5 [facility] Comment on above: Performed By: #### U A ####[facility] ([id number])[address] [address], [place] [address] TURBIDITY HAZY Abnormal CLEAR [facility] Comment on above: Performed By: #### U A ####[facility] ([id number])[address] [address], [place] [address] Urobilinogen (U) [Mass/Vol] mg/dL Normal <1.1 [facility] Comment on above: Performed By: #### U A ####[facility] ([id number])[address] [address], [place] [address] W.B.CELLS 455 /hpf High 0-5 [facility] Comment on above: Performed By: #### U A ####[facility] ([id number])[address] [address], [place] [address] WBC CLUMPS RARE Abnormal NONE [facility] Comment on above: Performed By: #### U A ####[facility] ([id number])[address] [address], [place] [address] Vitamin D+Metabolites [Mass/ Vol]on 04-21-2024 VITAMIN D 25 HYD TOT 32.8 ng/mL Normal 30-100 [facility] Comment on above: Result Comment: Radha min D status 25 [place] Vitamin D Deficiency <20 ng/mLInsufficiency 20-29 ng/mLSufficiency 30-100 ng/mLToxicity >100 ng/mLNOTE: A pediatric reference range has not beenestablished by the solid waste division supervisor of this kit.The [place] [employer] recommendsa Vitamin D level of = or >20ng/mL in infantsand children. Performed By: #### C BC, UPCR, FEPR, 33358-9, RENAL, 3084-1, 2276-4, 2731-8, 09303-5 ####[facility] ([id number])[address] [place] [address], [address] [place] [address] MAGNESIUMon 04-14-2024 Magnesium [Mass/Vol] 1.6 mg/dL Low 1.8-2.6 [facility] Comment on above: Performed By: #### 1 9123-9 ####[facility] ([id number])[address] [place] [address] MAGNESIUMon 04-08-2024 Magnesium [Mass/Vol] 1.5 mg/dL Low 1.8-2.6 [facility] Comment on above: Performed By: #### 1 9123-9 ####[facility] ([id number])[address] [place] [address] MAGNESIUMon 03-31-2024 Magnesium [Mass/Vol] 1.7 mg/dL Low 1.8-2.6 [facility] Comment on above: Performed By: #### 1 9123-9 ####[facility] ([id number])[address] [place] [address] MAGNESIUMon 03-24-2024 Magnesium [Mass/Vol] 1.6 mg/dL Low 1.8-2.6 [facility] Comment on above: Performed By: #### 1 9123-9 ####[facility] ([id number])[address] [place] [address] MAGNESIUMon 03-17-2024 Magnesium [Mass/Vol] 1.6 mg/dL Low 1.8-2.6 [facility] Comment on above: Performed By: #### 1 9123-9 ####[facility] ([id number])[address] [place] [address] MAGNESIUMon 03-10-2024 Magnesium [Mass/Vol] 1.6 mg/dL Low 1.8-2.6 [facility] Comment on above: Performed By: #### 1 9123-9 ####[facility] ([id number])[address] [place] [address] MAGNESIUMon 03-03-2024 Magnesium [Mass/Vol] 1.8 mg/dL Normal 1.8-2.6 [facility] Comment on above: Performed By: #### 1 9123-9 ####[facility] ([id number])[address] [place] [address] MAGNESIUMon 02-25-2024 Magnesium [Mass/Vol] 1.9 mg/dL Normal 1.8-2.6 [facility] Comment on above: Performed By: #### 1 9123-9 ####[facility] ([id number])[address] [place] [address] MAGNESIUMon 02-18-2024 Magnesium [Mass/Vol] 1.9 mg/dL Normal 1.8-2.6 [facility] Comment on above: Performed By: #### 1 9123-9 ####[facility] ([id number])[address] [place] [address] MAGNESIUMon 02-11-2024 Magnesium [Mass/Vol] 2.0 mg/dL Normal 1.8-2.6 [facility] Comment on above: Performed By: #### 1 9123-9 ####[facility] ([id number])[address] [place] [address] MAGNESIUMon 02-04-2024 Magnesium [Mass/Vol] 1.8 mg/dL Normal 1.8-2.6 [facility] Comment on above: Performed By: #### 1 9123-9 ####[facility] ([id number])[address] [place] [address] MAGNESIUMon 01-28-2024 Magnesium [Mass/Vol] 1.8 mg/dL Normal 1.8-2.6 [facility] Comment on above: Performed By: #### 1 9123-9 ####[facility] ([id number])[address] [place] [address] MAGNESIUMon 01-21-2024 Magnesium [Mass/Vol] 1.7 mg/dL Low 1.8-2.6 [facility] Comment on above: Performed By: #### 2 823-3, 26524-8 ####[facility] ([id number])[address] [place] [address] POTASSIUMon 01-21-2024 Potassium [Moles/Vol] 3.6 mmol/L Normal 3.5-5.0 [facility] Comment on above: Performed By: #### 2 823-3, 11337-8 ####[facility] ([id number])[address] [place] [address] MAGNESIUMon 01-14-2024 Magnesium [Mass/Vol] 1.6 mg/dL Low 1.8-2.6 [facility] Comment on above: Performed By: #### 1 9123-9 ####[facility] ([id number])[address] [place] [address] MAGNESIUMon 01-07-2024 Magnesium [Mass/Vol] 1.7 mg/dL Low 1.8-2.6 [facility] Comment on above: Performed By: #### 1 9123-9 ####[facility] ([id number])[address] [place] [address] MAGNESIUMon 12-31-2023 Magnesium [Mass/Vol] 1.7 mg/dL Low 1.8-2.6 [facility] Comment on above: Performed By: #### 1 9123-9 ####[facility] ([id number])[address] [place] [address] MAGNESIUMon 12-24-2023 Magnesium [Mass/Vol] 1.6 mg/dL Low 1.8-2.6 [facility] Comment on above: Performed By: #### 1 9123-9 ####[facility] ([id number])[address] [place] [address], [place] [address] MAGNESIUMon 12-17-2023 Magnesium [Mass/Vol] 1.5 mg/dL Low 1.8-2.6 [facility] Comment on above: Performed By: #### 1 9123-9 ####[facility] ([id number])[address] [place] [address]87[address] MAGNESIUMon 12-10-2023 Magnesium [Mass/Vol] 1.7 mg/dL Low 1.8-2.6 [facility] Comment on above: Performed By: #### 1 9123-9 ####[facility] ([id number])[address] [place] [address] MAGNESIUMon 12-03-2023 Magnesium [Mass/Vol] 1.7 mg/dL Low 1.8-2.6 [facility] Comment on above: Performed By: #### 1 9123-9 ####[facility] ([id number])[address] [place] [address] [place] [address] COMPREHENSIVE METABOLIC PANE Jared 11-26-2023 Albumin [Mass/Vol] 3.9 g/dL Normal 3.2-5.3 [facility] Comment on above: Performed By: #### 1 9123-9 ####[facility] ([id number])[address] [place] [address]46#### CMP, 00332-9 ####[facility] ([id number])[address], [place] [address] ALP [Catalytic activity/Vol] 122 U/L Normal 39-130 [facility] Comment on above: Performed By: #### 1 9123-9 ####[facility] ([id number])[address] [place] [address] 03491#### CMP, 76613-8 ####[facility] ([id number])[address], [address] [address] ALT [Catalytic activity/Vol] 29 U/L Normal 0-31 [facility] Comment on above: Performed By: #### 1 9123-9 ####[facility] ([id number])[address] [place] [address]#### JAS, 05424-3 ####[facility] ([id number])[address] [address] Anion gap [Moles/Vol] 9 mmol/L Normal 5-15 [facility] Comment on above: Performed By: #### 1 9123-9 ####[facility] ([id number])[address] [place] [address] 00010#### CMP, 80897-1 ####[facility] ([id number])[address], [address], [place] [address] AST [Catalytic activity/Vol] 22 U/L Normal 0-41 [facility] Comment on above: Performed By: #### 1 9123-9 ####[facility] ([id number])[address] [place] [address]342#### CMP, 49385-7 ####[facility] ([id number])[address], [place] [address] Bilirubin [Mass/Vol] 0.4 mg/dL Normal 0.3-1.2 [facility] Comment on above: Performed By: #### 1 9123-9 ####[facility] ([id number])[address] [place] [address]84#### JAS, 75608-8 ####[facility] ([id number])[address], [place] [address] Calcium [Mass/Vol] 9.7 mg/dL Normal 8.5-10.5 [facility] Comment on above: Performed By: #### 1 9123-9 ####[facility] ([id number])[address] [place] [address]#### JAS, 45167-7 ####[facility] ([id number])[address], [place] [address] Chloride [Moles/Vol] 103 mmol/L Normal 98-109 [facility] Comment on above: Performed By: #### 1 9123-9 ####[facility] ([id number])[address] [place] [address]#### JAS, 86988-8 ####[facility] ([id number])[address], [place] [address] CO2 [Moles/Vol] 30 mmol/L Normal 22-32 [facility] Comment on above: Performed By: #### 1 9123-9 ####[facility] ([id number])[address] [place] [address]146#### JAS, 58667-0 ####[facility] ([id number])[address], [place] [address] Creatinine [Mass/Vol] 1.53 mg/dL High 0.40-1.00 [facility] Comment on above: Result Comment: METH OD TRACEABLE TO IDMS STANDARD Performed By: #### 1 9123-9 ####[facility] ([id number])[address] [place] [address] 29821#### JAS, 43343-6 ####[facility] ([id number])[address] [address] GFR/1.73 sq M.predicted among non-blacks MDRD (S/P/Bld) [Vol rate/Area] 34 mL/min/{1.73_m2} Low >59 [facility] Comment on above: Result Comment: Repo rted eGFR is based on theCKD-EPI 2020 equation that doesnot use a race coefficient. Performed By: #### 1 9123-9 ####[facility] ([id number])[address] [place] [address]#### JAS, 09856-8 ####[facility] ([id number])[address] [address] Glucose [Mass/Vol] 165 mg/dL High 65-99 [facility] Comment on above: Performed By: #### 1 9123-9 ####[facility] ([id number])[address] [place] [address]31#### JAS, 81308-1 ####[facility] ([id number])[address] [address] Potassium [Moles/Vol] 4.4 mmol/L Normal 3.5-5.0 [facility] Comment on above: Performed By: #### 1 9123-9 ####[facility] ([id number])[address] [place] [address] 34176#### JAS, 61157-9 ####[facility] ([id number])[address], [place] [address] Protein [Mass/Vol] 7.1 g/dL Normal 6.0-8.0 [facility] Comment on above: Performed By: #### 1 9123-9 ####[facility] ([id number])[address] [place] [address] 21027#### JAS, 17779-9 ####[facility] ([id number])[address], [place] [address] Sodium [Moles/Vol] 142 mmol/L Normal 134-146 [facility] Comment on above: Performed By: #### 1 9123-9 ####[facility] ([id number])[address] [place] [address] 52458#### JAS, 99484-9 ####[facility] ([id number])[address] [address] Urea nitrogen [Mass/Vol] 43 mg/dL High 5-27 [facility] Comment on above: Performed By: #### 1 9123-9 ####[facility] ([id number])[address] [place] [address]1394#### JAS, 30868-0 ####[facility] ([id number])[address], [address], [place] [address] HGB A1C (GLYCO-HGB)on 2023 Glucose [Mass/Vol] 163 mg/dL Normal [facility] Comment on above: Performed By: #### 1 9123-9 ####[facility] ([id number])[address] [place] [address]#### JAS, 39090-9 ####[facility] ([id number])[address], [address] [place] [address] HbA1c (Bld) [Mass fraction] 7.3 % High 4.4-5.6 [facility] Comment on above: Result Comment: NOTE ADA Guidelines Result HgbA1c Normal : less than 5.7 % Prediabetes : 5.7 % to 6.4 % Diabetes : > 6.4 %Use with caution in patients with abnormal hemoglobin variants asthe half-life of red blood cells and in vivo glycation rates areaffected. Performed By: #### 1 9123-9 ####[facility] ([id number])[address] [place] [address]#### JAS, 30033-3 ####[facility] ([id number])[address] [facility] [address] [address] Lipid 1996 panelon 4 Cholesterol [Mass/Vol] 145 mg/dL Low 150-200 [facility] Comment on above: Performed By: #### 1 9123-9 ####[facility] ([id number])[address] [place], [place] [address]#### JAS, 44419-9 ####[facility] ([id number])[address] [facility] [address] [address] Cholesterol in HDL [Mass/Vol] 53 mg/dL Normal >39 [facility] Comment on above: Result Comment: HDL <40 mg/dL - High RiskHDL > or = 40mg/dL- DesirableHDL >60 mg/dL - Negative Risk Performed By: #### 1 9123-9 ####[facility] ([id number])[address] [place] [address]#### JAS, 50544-9 ####[facility] ([id number])[address], [address] [place] [address] Cholesterol in LDL [Mass/Vol] 43 mg/dL Normal <130 [facility] Comment on above: Result Comment: LDL <100 mg/dL - DesirableLDL >160 mg/dL - High Risk Performed By: #### 1 9123-9 ####[facility] ([id number])[address] [place] [address]1468#### JAS, 52806-7 ####[facility] ([id number])[address], [address] [place] [address] Cholesterol in VLDL [Mass/Vol] 49 mg/dL High 0-30 [facility] Comment on above: Performed By: #### 1 9123-9 ####[facility] ([id number])[address] [place] [address] 19011#### JAS, 44767-8 ####[facility] ([id number])[address], [address] [place] [address] CHOLESTEROL:HDL 2.7 Normal 1.0-5.0 [facility] Comment on above: Performed By: #### 1 9123-9 ####[facility] ([id number])[address] [place] [address] 88309#### JAS, 42835-0 ####[facility] ([id number])[address], [address] [place] [address] Triglyceride [Mass/Vol] 245 mg/dL High 27-150 [facility] Comment on above: Performed By: #### 1 9123-9 ####[facility] ([id number])[address] [place] [address] 86686#### AJS, 19520-8 ####[facility] ([id number])[address] [place] [address] MAGNESIUMon 11-26-2023 Magnesium [Mass/Vol] 1.8 mg/dL Normal 1.8-2.6 [facility] Comment on above: Performed By: #### 1 9123-9 ####[facility] ([id number])[address] [place] [address]3537#### JAS, 31758-8 ####[facility] ([id number])[address] [place] [address]48 MICROALBUMIN - ALBUMIN:CREAT ININE URINE RATIOon 11-26-2023 ALB/CREAT RATIO 352.8 mg/g creat High 0.0-30.0 [facility] Comment on above: Performed By: #### M ALBU #### [facility] ([id number]) [address] [place] [address] Albumin DL <= 20 mg/L (U) [Mass/Vol] 14.6 mg/dL High 0.0-1.9 [facility] Comment on above: Performed By: #### M ALBU #### [facility] ([id number]) [address] [place] [address]3025 URINE CREAT 41.38 mg/dL Normal [facility] Comment on above: Performed By: #### M ALBU #### [facility] ([id number]) [address] [place] [address] Office Visiton 11-19-2023 Follow-up visit [id number] Adore Wolff Maryjane 1940 F Date Provider Department Center 11/19/2023 [facility] Family History Problem Relation Age of Onset Heart attack Mother Family Status - Relation Status Age at Mother Level of Service:68057 AL OFFICE/OUTPATIENT ESTABLISHED LOW MDM 20 MIN Normal [facility] Magnesium [Mass/volume] in S asiya or PlasmaOrdered By: Gia Munoz on 11-16-2023 Magnesium [Mass/Vol] 1.4 mg/dL 1.9-2.7 [facility] Multiple labsOrdered By: Mary Ann Carter on 11-16-2023 [facility] P[facility] INTACTon 01-16-2023 PTH, Intact 115 pg/mL Critically high 15-65 [facility] Comment on above: Performed By: #### M G, URIC, RENAL #### [facility] [address] [place] [address] Dr. Nacho Jeffery FERRITINon 01-15-2023 Ferritin [Mass/Vol] 304.0 ng/mL Critically high 8.0-252.0 [facility] Comment on above: Performed By: #### M G, URIC, RENAL #### [facility] [address] [place] [address] Dr. Nacho Jeffery HEMOGRAM AND PLATELon 2022 Hematocrit (Bld) [Volume fraction] 36.0 % Normal 36.0-48.0 [facility] Comment on above: Performed By: #### M G, URIC, RENAL #### [facility] [address] [address] [address] Nacho Jeffery Hemoglobin (Bld) [Mass/Vol] 11.6 g/dL Critically low 12.0-16.0 [facility] Comment on above: Performed By: #### M G, URIC, RENAL #### [facility] [address] [address] [address] Nacho Jeffery MCH (RBC) [Entitic mass] 29.4 pg Normal 26.7-34.0 [facility] Comment on above: Performed By: #### M G, URIC, RENAL #### [facility] [address] [place] [address] Dr. Nacho Jeffery MCHC (RBC) [Mass/Vol] 32.2 g/dL Normal 29.9-35.2 [facility] Comment on above: Performed By: #### M G, URIC, RENAL #### [facility] [address] [address] [address] Nacho Jeffery MCV (RBC) [Entitic vol] 91.4 fL Normal 81.0-99.0 [facility] Comment on above: Performed By: #### M G, URIC, RENAL #### [facility] [address] [address] [address] Nacho Jeffery PLT 202 103/ul Normal 150-450 [facility] Comment on above: Performed By: #### M G, URIC, RENAL #### [facility] [address] [address] [address] Nacho Jeffery RBC 3.94 106/ul Critically low 4.20-5.40 [facility] Comment on above: Performed By: #### M G, URIC, RENAL #### [facility] [address] [address] [address] Nacho Jeffery WBC 5.9 103/ul Normal 4.0-11.0 [facility] Comment on above: Performed By: #### M G, URIC, RENAL #### [facility] [address] [address] [address] aNcho Jeffery IRON AND TIBCon 01-15-2023 % SATURATION 23.4 % Normal [facility] Comment on above: Performed By: #### M G, URIC, RENAL #### [facility] [address] [address] [address] Nacho Jeffery Iron [Mass/Vol] 62.0 ug/dL Normal 50.0-170.0 [facility] Comment on above: Performed By: #### M G, URIC, RENAL #### [facility] [address] [address] [address] Nacho Jeffery TIBC DIRECT 265.0 ug/dL Normal 250.0-450.0 [facility] Comment on above: Performed By: #### M G, URIC, RENAL #### [facility] [address] [address] [address] Nacho Jeffery MAGNESIUMon 01-15-2023 Magnesium [Mass/Vol] 1.5 mg/dL Critically low 1.8-2.4 [facility] Comment on above: Performed By: #### M G, URIC, RENAL #### [facility] [address] [address] [address] Nacho Jeffery RENAL FUNCTION PANELon 01-15 Albumin [Mass/Vol] 3.4 g/dL Normal 3.4-5.0 [facility] Comment on above: Performed By: #### M G, URIC, RENAL #### [facility] [address] [address] [address] Nacho Jeffery Calcium [Mass/Vol] 9.2 mg/dL Normal 8.5-10.1 [facility] Comment on above: Performed By: #### M G, URIC, RENAL #### [facility] [address] [place] [address] Dr. Nacho Jeffery Chloride [Moles/Vol] 104 mmol/L Normal 98-107 [facility] Comment on above: Performed By: #### M G, URIC, RENAL #### [facility] [address] [address] [address] Nacho Jeffery CO2 [Moles/Vol] 30.8 mmol/L Normal 21.0-32.0 [facility] Comment on above: Performed By: #### M G, URIC, RENAL #### [facility] [address] [address] [address] Nacho Jeffery Creatinine [Mass/Vol] 1.52 mg/dL Critically high 0.55-1.02 [facility] Comment on above: Performed By: #### M G, URIC, RENAL #### [facility] [address] [address] [address] Nacho Jeffery EGFR-AF MALIAN 40 mL/min/1.73m2 Critically low >=60 [facility] Comment on above: Performed By: #### M G, URIC, RENAL #### [facility] [address] [address] [address] Nacho Jeffery EGFR-NON AF MALIAN 33 mL/min/1.73m2 Critically low >=60 [facility] Comment on above: Performed By: #### M G, URIC, RENAL #### [facility] [address] [address] [address] Nacho Jeffery Glucose [Mass/Vol] 172 mg/dL Critically high 74-106 [facility] Comment on above: Performed By: #### M G, URIC, RENAL #### [facility] [address] [place] [address] Dr. Nacho Jeffery Phosphate [Mass/Vol] 3.7 mg/dL Normal 2.6-4.7 [facility] Comment on above: Performed By: #### M G, URIC, RENAL #### [facility] [address] [place] [address] Dr. Nacho Jeffery Potassium [Moles/Vol] 4.2 mmol/L Normal 3.5-5.1 [facility] Comment on above: Performed By: #### M G, URIC, RENAL #### [facility] [address] [place] [address] Dr. Nacho Jeffery Sodium [Moles/Vol] 143 mmol/L Normal 136-145 [facility] Comment on above: Performed By: #### M G, URIC, RENAL #### [facility] [address] [place] [address] Dr. Nacho Jeffery Urea nitrogen [Mass/Vol] 56.0 mg/dL Critically high 7.0-18.0 [facility] Comment on above: Performed By: #### M G, URIC, RENAL #### [facility] [address] [place] [address] Dr. Nacho Jeffery UA RANDOM W/MICROSCOPICon BACTERIA NONE SEEN Normal NONE SEEN [facility] Comment on above: Performed By: #### M G, URIC, RENAL #### [facility] [address] [place] [address] Dr. Nacho Jeffery Bilirubin Ql (U) Negative Normal NEGATIVE [facility] Comment on above: Performed By: #### M G, URIC, RENAL #### [facility] [address] [place] [address] Dr. Nacho Jeffery CAST NONE SEEN Normal NONE SEEN The [facility] Comment on above: Performed By: #### M G, URIC, RENAL #### [facility] [address] [address] [address] Nacho Jeffery Clarity (U) CLEAR Normal CLEAR [facility] Comment on above: Performed By: #### M G, URIC, RENAL #### [facility] [address] [place] [address] Dr. Nacho Jeffery Color (U) LT. YELLOW Normal YELLOW [facility] Comment on above: Performed By: #### M G, URIC, RENAL #### [facility] [address] [place] [address] Dr. Nacho Jeffery Crystals LM Nom (Urine sed) NONE SEEN Normal NONE SEEN [facility] Comment on above: Performed By: #### M G, URIC, RENAL #### [facility] [address] [place] [address] Dr. Nacho Jeffery Epithelial cells LM Ql (Urine sed) RARE Normal NONE SEEN /RARE [facility] Comment on above: Performed By: #### M G, URIC, RENAL #### [facility] [address] [place] [address] Dr. Nacho Jeffery Glucose Ql (U) Negative Normal NEGATIVE [facility] Comment on above: Performed By: #### M G, URIC, RENAL #### [facility] [address] [place] [address] Dr. Nacho Jeffery Hemoglobin Ql (U) Negative Normal NEGATIVE [facility] Comment on above: Performed By: #### M G, URIC, RENAL #### [facility] [address] [place] [address] Dr. Nacho Jeffery Ketones Ql (U) Negative Normal NEGATIVE [facility] Comment on above: Performed By: #### M G, URIC, RENAL #### [facility] [address] [place] [address] Dr. Nacho Jeffery LEUKOCYTES TRACE Abnormal NEGATIVE The [facility] Comment on above: Performed By: #### M G, URIC, RENAL #### [facility] [address] [place] [address] Dr. Nacho Jeffery MUCOUS NONE SEEN Normal NONE SEEN The [facility] Comment on above: Performed By: #### M G, URIC, RENAL #### [facility] [address] [address] [address] Nacho Jeffery Nitrite Ql (U) Negative Normal NEGATIVE [facility] Comment on above: Performed By: #### M G, URIC, RENAL #### [facility] [address] [address] [address] Nacho Jeffery pH (U) 5.5 [pH] Normal 5-9 [facility] Comment on above: Performed By: #### M G, URIC, RENAL #### [facility] [address] [address] [address] Nacho Jeffery RBC 0-2 Normal 0-2 [facility] Comment on above: Performed By: #### M G, URIC, RENAL #### [facility] [address] [address] [address] Nacho Jeffery SPEC GRAVITY 1.015 Normal 1.005-<=1.025 [facility] Comment on above: Performed By: #### M G, URIC, RENAL #### [facility] [address] [address] [address] Nacho Jeffery UA PROTEIN Negative Normal NEGATIVE/ TRACE [facility] Comment on above: Performed By: #### M G, URIC, RENAL #### [facility] [address] [address] [address] Nacho Jeffery Urobilinogen Qn (U) 0.2 {Zuleyka'U}/dL Normal 0.2 - 1. 0 [facility] Comment on above: Performed By: #### M G, URIC, RENAL #### [facility] [address] [address] [address] Nacho Jeffery WBC 2-5 Abnormal NONE SEEN The [facility] Comment on above: Performed By: #### M G, URIC, RENAL #### [facility] [address] [address] [address] Nacho Jeffery URIC ACID SERUMon 01-15-2023 Urate [Mass/Vol] 7.0 mg/dL Critically high 2.6-6.0 [facility] Comment on above: Performed By: #### M G, URIC, RENAL #### [facility] [address] [address] [address] Nacho Jeffery URINE T PROTEIN CREAT RATIOo n 01-15-2023 Protein (U) [Mass/Vol] 13.4 mg/dL Critically high <=12.0 [facility] Comment on above: Performed By: #### U RTPCR #### [facility] [address] [address] [address] Nacho Jeffery UR PROT CREAT RAT 0.24 Normal [facility] Comment on above: Performed By: #### U RTPCR #### [facility] [address] [place] [address] Dr. Nacho Jeffery URINE CREAT 56.90 mg/dL Normal 20.00-300.00 [facility] Comment on above: Performed By: #### U RTPCR #### [facility] [address] [address] [address] Nacho Jeffery VITAMIN D 25 OHon 01-15-2023 VIT D 25-OH 52.6 ng/mL Normal [facility] Comment on above: Performed By: #### M Jamarcus, URIC, RENAL #### [facility] [address] [place] [address] Dr. Nacho Jeffery VIT D RANGES SEE BELOW Normal [facility] Comment on above: Result Comment: <20 ng/mL Vit D deficient 20 - <30 ng/mL Vit D insufficient 30 - 100 ng/mL Vit D sufficient >100 ng/mL Potential Toxicity Performed By: #### M G, URIC, RENAL #### [facility] [address] [place] [address] Dr. Nacho Jeffery Telemedicineon 12-06-2022 Telemedicine [id number] Adore Wolff 1940 F Date Provider Department Center 12/06/2022 Jesus-MOE [facility] Family History Problem Relation Age of Onset Heart attack Mother Family Status - Relation Status Age at Mother Level of Service:85731 AL OFFICE/OUTPATIENT EST PT MAY NOT REQ PHYS/QHP Normal [facility] GLYCOHEMOGLOBIN A1Con 2021 ADA RECOMMENDATION SEE BELOW Normal [facility] Comment on above: Result Comment: ADA RECOMMENDED LIMIT 4.0 - 6.0 ADA THERAPEUTIC TARGET < 7.0 ACTION SUGGESTED > 7.0 Performed By: #### A 1C #### [facility] [address] [address] [address] Nacho Jeffery Glucose [Mass/Vol] 143 mg/dL Normal [facility] Comment on above: Performed By: #### A 1C #### [facility] [address] [address] [address] Nacho Jeffery HbA1c (Bld) [Mass fraction] 6.6 % Critically high 4.5-6.2 [facility] Comment on above: Performed By: #### A 1C #### [facility] [address] [address] [address] Nacho Jeffery LIPID PROFILEon 11-09-2022 CHOL-HDL RATIO NORM SEE BELOW Normal [facility] Comment on above: Result Comment: 3.3 - 4.4 LOW RISK 4.4 - 7.1 AVERAGE RISK 7.1 - 11.0 MODERATE RISK >11.0 HIGH RISK Performed By: #### M G, URIC, RENAL #### [facility] [address] [address] [address] Nacho Jeffery Cholesterol [Mass/Vol] 141 mg/dL Normal <=200 [facility] Comment on above: Performed By: #### M G, URIC, RENAL #### [facility] [address] [address] [address] Nacho Jeffery Cholesterol in HDL [Mass/Vol] 59 mg/dL Normal 40-60 [facility] Comment on above: Performed By: #### M G, URIC, RENAL #### [facility] [address] [address] [address] Nacho Jeffery Cholesterol in LDL [Mass/Vol] 46.2 mg/dL Normal [facility] Comment on above: Performed By: #### M G, URIC, RENAL #### [facility] [address] [address] [address] Nacho Jeffery Cholesterol.total/C holesterol in HDL [Mass ratio] 2.4 {ratio} Normal [facility] Comment on above: Performed By: #### M G, URIC, RENAL #### [facility] [address] [address] [address] Nacho Jeffery HDL NORMAL > or = 60 mg/dl - LO W CARDIOVASCULAR RISK <40 mg/dl - HIGH CARDIOVASCULAR RISK Normal [facility] Comment on above: Performed By: #### M G, URIC, RENAL #### [facility] [address] [address] [address] Nacho Jeffery LDL CALC NORMAL SEE BELOW Normal [facility] Comment on above: Result Comment: <100 mg/dl OPTIMAL 100 - 129 mg/dl NEAR OR ABOVE OPTIMAL 130 - 159 mg/dl BORDERLINE HIGH 160 - 189 mg/dl HIGH >190 mg/dl VERY HIGH Performed By: #### M G, URIC, RENAL #### [facility] [address] [address] [address] Nacho Jeffery Triglyceride [Mass/Vol] 179 mg/dL Critically high <=150 [facility] Comment on above: Performed By: #### M G, URIC, RENAL #### [facility] [address] [address] [address] Nacho Jeffery VLDL CALC 35.8 mg/dL Normal [facility] Comment on above: Performed By: #### M G, URIC, RENAL #### [facility] [address] [address] [address] Nacho Jeffery PROF 14(COMP METB)on 022 Albumin [Mass/Vol] 3.2 g/dL Critically low 3.4-5.0 Th e [facility] Comment on above: Performed By: #### M G, URIC, RENAL #### [facility] [address] [address] [address] Nacho Jeffery Albumin/Globulin [Mass ratio] 0.8 {ratio} Normal [facility] Comment on above: Performed By: #### M G, URIC, RENAL #### [facility] [address] [address] [address] Nacho Jeffery ALP [Catalytic activity/Vol] 109 U/L Normal 46-116 [facility] Comment on above: Performed By: #### M G, URIC, RENAL #### [facility] [address] [place] [address] Dr. Nacho Jeffery ALT [Catalytic activity/Vol] 38 U/L Normal 14-59 [facility] Comment on above: Performed By: #### M G, URIC, RENAL #### [facility] [address] [place] [address] Dr. Nacho Jeffery Anion gap [Moles/Vol] 13.7 mmol/L Normal [facility] Comment on above: Performed By: #### M G, URIC, RENAL #### [facility] [address] [place] [address] Dr. Nacho Jeffery AST [Catalytic activity/Vol] 27 U/L Normal 15-37 [facility] Comment on above: Performed By: #### M G, URIC, RENAL #### [facility] [address] [place] [address] Dr. Nacho Jeffery Bilirubin [Mass/Vol] 0.4 mg/dL Normal 0.2-1.0 [facility] Comment on above: Performed By: #### M G, URIC, RENAL #### [facility] [address] [place] [address] Dr. Nacho Jeffery Calcium [Mass/Vol] 9.2 mg/dL Normal 8.5-10.1 [facility] Comment on above: Performed By: #### M G, URIC, RENAL #### [facility] [address] [place] [address] Dr. Nacho Jeffery Chloride [Moles/Vol] 105 mmol/L Normal 98-107 [facility] Comment on above: Performed By: #### M G, URIC, RENAL #### [facility] [address] [place] [address] Dr. Nacho Jeffery CO2 [Moles/Vol] 29.5 mmol/L Normal 21.0-32.0 [facility] Comment on above: Performed By: #### M G, URIC, RENAL #### [facility] [address] [place] [address] Dr. Nacho Jeffery Creatinine [Mass/Vol] 1.62 mg/dL Critically high 0.55-1.02 [facility] Comment on above: Performed By: #### M G, URIC, RENAL #### [facility] [address] [address] [address] Nacho Jeffery EGFR-AF MALIAN 37 mL/min/1.73m2 Critically low >=60 [facility] Comment on above: Performed By: #### M G, URIC, RENAL #### [facility] [address] [address] [address] Nacho Jeffery EGFR-NON AF MALIAN 31 mL/min/1.73m2 Critically low >=60 [facility] Comment on above: Performed By: #### M Jamarcus, URIC, RENAL #### [facility] [address] [place] [address] Dr. Nacho Jeffery Globulin (S) [Mass/Vol] 3.8 g/dL Normal [facility] Comment on above: Performed By: #### M Jamarcus, URIC, RENAL #### [facility] [address] [place] [address] Dr. Nacho Jeffery Glucose [Mass/Vol] 102 mg/dL Normal 74-106 [facility] Comment on above: Performed By: #### M Jamarcus, URIC, RENAL #### [facility] [address] [place] [address] Dr. Nacho Jeffery Potassium [Moles/Vol] 4.2 mmol/L Normal 3.5-5.1 [facility] Comment on above: Performed By: #### M G, URIC, RENAL #### [facility] [address] [address] [address] Nacho Jeffery Protein [Mass/Vol] 7.0 g/dL Normal 6.4-8.2 [facility] Comment on above: Performed By: #### M G, URIC, RENAL #### [facility] [address] [address] [address] Nacho Jeffery Sodium [Moles/Vol] 144 mmol/L Normal 136-145 [facility] Comment on above: Performed By: #### M G, URIC, RENAL #### [facility] [address] [address] [address] Nacho Jeffery Urea nitrogen [Mass/Vol] 45.0 mg/dL Critically high 7.0-18.0 [facility] Comment on above: Performed By: #### M G, URIC, RENAL #### [facility] [address] [address] [address] Nacho Jeffery Urea nitrogen/Creatinine [Mass ratio] 27.8 mg/mg Normal [facility] Comment on above: Performed By: #### M G, URIC, RENAL #### [facility] [address] [address] [address] Nacho Jeffery OSMOLALITY URINEon Osmolality, Urine 466 mOsmol/kg Normal [facility] Comment on above: Result Comment: 24 h r : 300 - 900 Random: 50 - 1400 After 12hr fluid restriction: >850 Performed By: #### M G, URIC, RENAL #### [facility] [address] [address] [address] Nacho Jeffery PTH INTACTon 07-13-2022 PTH, Intact 84 pg/mL Critically high 15-65 [facility] Comment on above: Performed By: #### P THINT #### [facility] [address] [address] [address] Nacho Jeffery VIT D 25-OH LABCORPon 2021 Vitamin D, 25-Hydroxy 34.7 ng/mL Normal 30.0-100.0 [facility] Comment on above: Result Comment: Radha min D deficiency has been defined by the [place] [employer] and an Endocrine Society practice guideline as a level of serum 25-OH vitamin D less than 20 ng/mL (1,2). The Endocrine Society went on to further define vitamin D insufficiency as a level between 21 and 29 ng/mL (2). 1. IOM ([place] [employer]). 2010. Dietary reference intakes for calcium and D. [place]: The National Academies Press. 2. Magdiel MF, Kb NC, Evens PEPPER, et al. Evaluation, treatment, and prevention of vitamin D deficiency: an Endocrine Society clinical practice guideline. JCEM. 2010; 96(2):1911-30. Performed By: #### M G, URIC, RENAL #### [facility] [address] [place] [address] Dr. Nacho Jeffery HEMOGRAM AND PLATELon 2021 Hematocrit (Bld) [Volume fraction] 35.5 % Critically low 36.0-48.0 [facility] Comment on above: Performed By: #### M G, URIC, RENAL #### [facility] [address] [place] [address] Dr. Nacho Jeffery Hemoglobin (Bld) [Mass/Vol] 11.5 g/dL Critically low 12.0-16.0 [facility] Comment on above: Performed By: #### M G, URIC, RENAL #### [facility] [address] [place] [address] Dr. Nacho Jeffery MCH (RBC) [Entitic mass] 30.6 pg Normal 26.7-34.0 [facility] Comment on above: Performed By: #### M G, URIC, RENAL #### [facility] [address] [place] [address] Dr. Nacho Jeffery MCHC (RBC) [Mass/Vol] 32.4 g/dL Normal 29.9-35.2 [facility] Comment on above: Performed By: #### M G, URIC, RENAL #### [facility] [address] [place] [address] Dr. Nacho Jeffery MCV (RBC) [Entitic vol] 94.4 fL Normal 81.0-99.0 [facility] Comment on above: Performed By: #### M G, URIC, RENAL #### [facility] [address] [place] [address] Dr. Nacho Jeffery PLT 192 103/ul Normal 150-450 [facility] Comment on above: Performed By: #### M G, URIC, RENAL #### [facility] [address] [place] [address] Dr. Nacho Jeffery RBC 3.76 106/ul Critically low 4.20-5.40 [facility] Comment on above: Performed By: #### M G, URIC, RENAL #### [facility] [address] [address] [address] Nacho Jeffery WBC 6.1 103/ul Normal 4.0-11.0 [facility] Comment on above: Performed By: #### M G, URIC, RENAL #### [facility] [address] [address] [address] Nacho Jeffery MAGNESIUMon 07-12-2022 Magnesium [Mass/Vol] 1.3 mg/dL Critically low 1.8-2.4 [facility] Comment on above: Performed By: #### U CHRISTOFER, MG, RENAL #### [facility] [address] [address] [address] Nacho Jeffery RENAL FUNCTION PANELon 07-12 Albumin [Mass/Vol] 3.3 g/dL Critically low 3.4-5.0 [facility] Comment on above: Performed By: #### U CHRISTOFER, MG, RENAL #### [facility] [address] [address] [address] Nacho Jeffery Calcium [Mass/Vol] 9.1 mg/dL Normal 8.5-10.1 [facility] Comment on above: Performed By: #### U CHRISTOFER, MG, RENAL #### [facility] [address] [address] [address] Nacho Jeffery Chloride [Moles/Vol] 104 mmol/L Normal 98-107 [facility] Comment on above: Performed By: #### U CHRISTOFER, MG, RENAL #### [facility] [address] [address] [address] Nacho Jeffery CO2 [Moles/Vol] 31.7 mmol/L Normal 21.0-32.0 [facility] Comment on above: Performed By: #### U CHRISTOFER, MG, RENAL #### [facility] [address] [address] [address] Nacho Jeffery Creatinine [Mass/Vol] 1.52 mg/dL Critically high 0.55-1.02 [facility] Comment on above: Performed By: #### U CHRISTOFER, MG, RENAL #### [facility] [address] [address] [address] Nacho Jeffery EGFR-AF MALIAN 40 mL/min/1.73m2 Critically low >=60 [facility] Comment on above: Performed By: #### U CHRISTOFER, MG, RENAL #### [facility] [address] [address] [address] Nacho Jeffery EGFR-NON AF MALIAN 33 mL/min/1.73m2 Critically low >=60 [facility] Comment on above: Performed By: #### U CHRISTOFER, MG, RENAL #### [facility] [address] [place] [address] Dr. Nacho Jeffery Glucose [Mass/Vol] 221 mg/dL Critically high 74-106 [facility] Comment on above: Performed By: #### U CHRISTOFER, MG, RENAL #### [facility] [address] [place] [address] Dr. Nacho Jeffery Phosphate [Mass/Vol] 3.8 mg/dL Normal 2.6-4.7 [facility] Comment on above: Performed By: #### U CHRISTOFER, MG, RENAL #### [facility] [address] [address] [address] Nacho Jeffery Potassium [Moles/Vol] 4.1 mmol/L Normal 3.5-5.1 [facility] Comment on above: Performed By: #### U CHRISTOFER, MG, RENAL #### [facility] [address] [place] [address] Dr. Nacho Jeffery Sodium [Moles/Vol] 143 mmol/L Normal 136-145 [facility] Comment on above: Performed By: #### U CHRISTOFER, MG, RENAL #### [facility] [address] [place] [address] Dr. Nacho Jeffery Urea nitrogen [Mass/Vol] 45.0 mg/dL Critically high 7.0-18.0 [facility] Comment on above: Performed By: #### U CHRISTOFER, MG, RENAL #### [facility] [address] [place] [address] Dr. Nacho Jeffery UA RANDOM W/MICROSCOPICon BACTERIA NONE SEEN Normal NONE SEEN [facility] Comment on above: Performed By: #### M G, URIC, RENAL #### [facility] [address] [address] [address] Nacho Jeffery Bilirubin Ql (U) Negative Normal NEGATIVE [facility] Comment on above: Performed By: #### M G, URIC, RENAL #### [facility] [address] [address] [address] Nacho Jeffery CAST NONE SEEN Normal NONE SEEN [facility] Comment on above: Performed By: #### M G, URIC, RENAL #### [facility] [address] [address] [address] Nacho Jeffery Clarity (U) CLEAR Normal CLEAR [facility] Comment on above: Performed By: #### M G, URIC, RENAL #### [facility] [address] [place] [address] Dr. Nacho Jeffery Color (U) LT. YELLOW Normal YELLOW [facility] Comment on above: Performed By: #### M G, URIC, RENAL #### [facility] [address] [address] [address] Nacho Jeffery Crystals LM Nom (Urine sed) NONE SEEN Normal NONE SEEN [facility] Comment on above: Performed By: #### M G, URIC, RENAL #### [facility] [address] [address] [address] Nacho Jeffery Epithelial cells LM Ql (Urine sed) FEW Abnormal NONE SEEN /RARE [facility] Comment on above: Performed By: #### M G, URIC, RENAL #### [facility] [address] [address] [address] Nacho Jeffery Glucose Ql (U) Negative Normal NEGATIVE [facility] Comment on above: Performed By: #### M G, URIC, RENAL #### [facility] [address] [place] [address] Dr. Nacho Jeffery Hemoglobin Ql (U) Negative Normal NEGATIVE [facility] Comment on above: Performed By: #### M G, URIC, RENAL #### [facility] [address] [address] [address] Nacho Jeffery Ketones Ql (U) Negative Normal NEGATIVE [facility] Comment on above: Performed By: #### M G, URIC, RENAL #### [facility] [address] [address] [address] Nacho Jeffery LEUKOCYTES TRACE Abnormal NEGATIVE [facility] Comment on above: Performed By: #### M G, URIC, RENAL #### [facility] [address] [address] [address] Nacho Jeffery MUCOUS NONE SEEN Normal NONE SEEN [facility] Comment on above: Performed By: #### M G, URIC, RENAL #### [facility] [address] [place] [address] Dr. Nacho Jeffery Nitrite Ql (U) Negative Normal NEGATIVE [facility] Comment on above: Performed By: #### M G, URIC, RENAL #### [facility] [address] [place] [address] Dr. Nacho Jeffery pH (U) 6.0 [pH] Normal 5-9 [facility] Comment on above: Performed By: #### M G, URIC, RENAL #### [facility] [address] [place] [address] Dr. Nacho Jeffery RBC NONE SEEN Abnormal 0-2 [facility] Comment on above: Performed By: #### M G, URIC, RENAL #### [facility] [address] [place] [address] Dr. Nacho Jeffery SPEC GRAVITY 1.015 Normal 1.005-<=1.025 [facility] Comment on above: Performed By: #### M G, URIC, RENAL #### [facility] [address] [address] [address] Nacho Jeffery UA PROTEIN Negative Normal NEGATIVE/ TRACE [facility] Comment on above: Performed By: #### M G, URIC, RENAL #### [facility] [address] [place] [address] Dr. Nacho Jeffery Urobilinogen Qn (U) 0.2 {Zuleyka'U}/dL Normal 0.2 - 1. 0 [facility] Comment on above: Performed By: #### M G, URIC, RENAL #### [facility] [address] [place] [address] Dr. Nacho Jeffery WBC 2-5 Abnormal NONE SEEN [facility] Comment on above: Performed By: #### M G, URIC, RENAL #### [facility] [address] [address] [address] Nacho Jeffery URIC ACID SERUMon 07-12-2022 Urate [Mass/Vol] 7.9 mg/dL Critically high 2.6-6.0 [facility] Comment on above: Performed By: #### U CHRISTOFER, MG, RENAL #### [facility] [address] [address] [address] Nacho Jeffery URINE T PROTEIN CREAT RATIOo n 07-12-2022 Protein (U) [Mass/Vol] 17.5 mg/dL Critically high <=12.0 [facility] Comment on above: Performed By: #### M G, URIC, RENAL #### [facility] [address] [address] [address] Nacho Jeffery UR PROT CREAT RAT 0.29 Normal [facility] Comment on above: Performed By: #### M G, URIC, RENAL #### [facility] [address] [address] [address] Nacho Jeffery URINE CREAT 60.37 mg/dL Normal 20.00-300.00 [facility] Comment on above: Performed By: #### M G, URIC, RENAL #### [facility] [address] [address] [address] Nacho Jeffery ALBUMIN, RANDOM URINE W/CREA TININEon 05-11-2022 ALBUMIN, URINE 0.5 mg/dL Normal See Note: [facility] Comment on above: Result Comment: Refe rence Range: Reference Range Not established Performed By: #### 4 96, 7600, 6517, 67868 #### [facility] [address], [address] [place] [id number] [employer] Associate: Mauricio Kern MD ALBUMIN/CREATININE RATIO, RANDOM [...] Performed By: #### 4 96, 7600, 6517, 66169 #### [facility] of [address], [address] [place] [address] [employer] Associate: Mauricio Kern MD Creatinine (U) [Mass/Vol] 74 mg/dL Normal 20-275 [facility] Comment on above: Performed By: #### 4 96, 7600, 6517, 10511 #### [facility] [address], [address] [place] [address] [employer] Associate: Mauricio Kern MD BASIC METABOLIC PANELon 04-14 GLUCOSE Normal [facility] Comment on above: Result Comment: TEST NOT PERFORMED No specimen received. Performed By: #### 4 96, 7600, 6517, 49556 #### [facility] of [address], [address] [place] [address] [employer] Associate: Mauricio Kern MD HEMOGLOBIN A1con 05-11-2022 HEMOGLOBIN A1c Normal [facility] Comment on above: Result Comment: TEST NOT PERFORMED No specimen received. Performed By: #### 4 96, 7600, 6517, 45506 #### [facility] [address], [address] [place] [address] [employer] Associate: Mauricio Kern MD LIPID PANEL, STANDARDon 04-14 CHOL/HDLC RATIO Normal [facility] Comment on above: Result Comment: TEST NOT PERFORMED No specimen received. Performed By: #### 4 96, 7600, 6517, 90956 #### [facility] [address], [address] [place] [address] [employer] Associate: Mauricio Kern MD CHOLESTEROL, TOTAL Normal [facility] Comment on above: Result Comment: TEST NOT PERFORMED No specimen received. Performed By: #### 4 96, 7600, 6517, 70513 #### [facility] [address], [address] [place] [address] [employer] Associate: Mauricio Kern MD HDL CHOLESTEROL Normal [facility] Comment on above: Result Comment: TEST NOT PERFORMED No specimen received. Performed By: #### 4 96, 7600, 6517, 11787 #### [facility] [address], [address] [place] [address] [employer] Associate: Mauricio Kern MD LDL-CHOLESTEROL Normal [facility] Comment on above: Result Comment: TEST NOT PERFORMED No specimen received. Performed By: #### 4 96, 7600, 6517, 27928 #### [facility] [address], [address] [place] [address] [employer] Associate: Mauricio Kern MD NON HDL CHOLESTEROL Normal [facility] Comment on above: Result Comment: TEST NOT PERFORMED No specimen received. Performed By: #### 4 96, 7600, 6517, 53322 #### [facility] [address], [address] [place] [address] [employer] Associate: Mauricio Kern MD TRIGLYCERIDES Normal [facility] Comment on above: Result Comment: TEST NOT PERFORMED No specimen received. Performed By: #### 4 96, 7600, 6517, 18582 #### [facility] [address], [address] [place] [address] [employer] Associate: Mauricio Kern MD BASIC METABOLIC PANELon 06-2 Calcium [Mass/Vol] 9.1 mg/dL Normal 8.6-10.4 [facility] Comment on above: Performed By: #### 1 0165, 496, 7600 #### [facility] of [address] [address] [employer] Associate: Mauricio Kern MD Chloride [Moles/Vol] 105 mmol/L Normal 98-110 [facility] Comment on above: Performed By: #### 1 0165, 496, 7600 #### [facility] of [address], [address] [place] [address] [employer]: Mauricio Kern MD CO2 [Moles/Vol] 25 mmol/L Normal 20-32 [facility] Comment on above: Performed By: #### 1 0165, 496, 7600 #### [facility] [address], [address] [place] [address] [employer]: Mauricio Kern MD Creatinine [Mass/Vol] 1.73 mg/dL High 0.60-0.93 [facility] Comment on above: Result Comment: For patients >49 years of age, the reference limit for Creatinine is approximately 13% higher for people identified as -[place]. Performed By: #### 1 0165, 496, 7600 #### [facility] [address], [address] [place] [address] [employer] Associate: Mauricio Kern MD eGFR NON-AFR. MALIAN 28 mL/min/1.73m2 Low > OR = 60 [facility] Comment on above: Performed By: #### 1 016, 496, 7600 #### [facility] [address] [address] [employer] Associate: Mauricio Kern MD GFR/1.73 sq M.predicted among blacks MDRD (S/P/Bld) [Vol rate/Area] 32 mL/min/{1.73_m2} Low > OR = 60 [facility] Comment on above: Performed By: #### 1 016, 496, 7600 #### [facility] [address] [place] [address] [employer] Associate: Mauricio Kern MD Glucose [Mass/Vol] 137 mg/dL High 65-99 [facility] Comment on above: Result Comment: Fasting reference interval For someone without known diabetes, a glucose value >125 mg/dL indicates that they may have diabetes and this should be confirmed with a follow-up test. Performed By: #### 1 0165, 496, 7600 #### [facility] [address] [place] [address] [employer] Associate: Mauricio Kern MD Potassium [Moles/Vol] 4.6 mmol/L Normal 3.5-5.3 [facility] Comment on above: Performed By: #### 1 0165, 496, 7600 #### [facility] [address], [address] [place] [address] [employer] Associate: Mauricio Kern MD Sodium [Moles/Vol] 142 mmol/L Normal 135-146 [facility] Comment on above: Performed By: #### 1 0165, 496, 7600 #### [facility] [address], [address] [place] [address] [employer] Associate: Mauricio Kern MD Urea nitrogen [Mass/Vol] 65 mg/dL High 7-25 [facility] Comment on above: Performed By: #### 1 0165, 496, 7600 #### [facility] [address], [address] [place] [address] [employer] Associate: Mauricio Kern MD Urea nitrogen/Creatinine [Mass ratio] 38 mg/mg High 6-22 [facility] Comment on above: Performed By: #### 1 0165, 496, 7600 #### [facility] [address], [address] [place] [address] [employer] Associate: Mauricio Kern MD HEMOGLOBIN A1con 05-04-2022 [...] 1 0165, 496, 7600 #### [facility] [address], [address] [place] [address] [employer]: Mauricio Kern MD LIPID PANEL, STANDARDon 06- Cholesterol [Mass/Vol] 163 mg/dL Normal <200 [facility] Comment on above: Order Comment: FASTI NG:YES PATIENT UNABLE TO VOID; ADVISED TO RETURN FOR COLLECTION. FASTING: YES Performed By: #### 1 0165, 496, 7600 #### [facility] [address], [address] [place] [address] [employer]: Mauricio Kern MD Cholesterol in HDL [Mass/Vol] 51 mg/dL Normal > OR = 50 [facility] Comment on above: Order Comment: FASTI NG:YES PATIENT UNABLE TO VOID; ADVISED TO RETURN FOR COLLECTION. FASTING: YES Performed By: #### 1 0165, 496, 7600 #### [facility] [address], [address] [place] [address] [employer]: Mauricio Kern MD Cholesterol in LDL [...] LDL-C. Sean SS et al. SHRUTHI. 2013;310(19): 6115-9465 (http://education.[employer] GmbH.Usetrace/faq/XLO395) Performed By: #### 1 0165, 496, 7600 #### [facility] [address], [address] [place] [address] [employer] Associate: Mauricio Kern MD Cholesterol.total/C holesterol in HDL [Mass ratio] 3.2 {ratio} Normal <5.0 [facility] Comment on above: Order Comment: FASTI NG:YES PATIENT UNABLE TO VOID; ADVISED TO RETURN FOR COLLECTION. FASTING: YES Performed By: #### 1 0165, 496, 7600 #### [facility] [address], [address] [place] [address] [employer]: Mauricio Kern MD NON HDL CHOLESTEROL [...] 1 0165, 496, 7600 #### [facility] [address] [place] [address], [address] [place] [address] [employer] Associate: Mauricio Kern MD Triglyceride [Mass/Vol] 181 mg/dL High <150 [facility] Comment on above: Order Comment: FASTI NG:YES PATIENT UNABLE TO VOID; ADVISED TO RETURN FOR COLLECTION. FASTING: YES Performed By: #### 1 0165, 496, 5360 #### [facility] [address] [place], [place] [address]e , [address] [place], [place] [id number] [employer] Associate: Mauricio Kern MD PTH INTACTon 03-31-2022 PTH, Intact 111 pg/mL Critically high 15-65 [facility] Comment on above: Performed By: #### M G, URIC, RENAL #### [facility] [address] [address] [address] Nacho Jeffery FERRITINon 03-30-2022 Ferritin [Mass/Vol] 479.0 ng/mL Critically high 8.0-252.0 [facility] Comment on above: Performed By: #### M G, URIC, RENAL #### [facility] [address] [address] [address] Nacho Jeffery HEMOGRAM AND PLATELon 2021 Hematocrit (Bld) [Volume fraction] 38.1 % Normal 36.0-48.0 [facility] Comment on above: Performed By: #### M G, URIC, RENAL #### [facility] [address] [address] [address] Nacho Jeffery Hemoglobin (Bld) [Mass/Vol] 12.9 g/dL Normal 12.0-16.0 [facility] Comment on above: Performed By: #### M G, URIC, RENAL #### [facility] [address] [address] [address] Nacho Jeffery MCH (RBC) [Entitic mass] 32.8 pg Normal 26.7-34.0 [facility] Comment on above: Performed By: #### M G, URIC, RENAL #### [facility] [address] [place] [address] Dr. Nacho Jeffery MCHC (RBC) [Mass/Vol] 33.9 g/dL Normal 29.9-35.2 [facility] Comment on above: Performed By: #### M G, URIC, RENAL #### [facility] [address] [place] [address] Dr. Nacho Jeffery MCV (RBC) [Entitic vol] 96.9 fL Normal 81.0-99.0 [facility] Comment on above: Performed By: #### M G, URIC, RENAL #### [facility] [address] [place] [address] Dr. Nacho Jeffery PLT 191 103/ul Normal 150-450 [facility] Comment on above: Performed By: #### M G, URIC, RENAL #### [facility] [address] [place] [address] Dr. Nacho Jeffery RBC 3.93 106/ul Critically low 4.20-5.40 [facility] Comment on above: Performed By: #### M G, URIC, RENAL #### [facility] [address] [place] [address] Dr. Nacho Jeffery WBC 7.2 103/ul Normal 4.0-11.0 [facility] Comment on above: Performed By: #### M G, URIC, RENAL #### [facility] [address] [place] [address] Dr. Nacho Jeffery IRON AND TIBCon 03-30-2022 % SATURATION 21.6 % Normal [facility] Comment on above: Performed By: #### M G, URIC, RENAL #### [facility] [address] [place] [address] Dr. Nacho Jeffery Iron [Mass/Vol] 63.0 ug/dL Normal 50.0-170.0 [facility] Comment on above: Performed By: #### M G, URIC, RENAL #### [facility] [address] [address] [address] Nacho Jeffery TIBC DIRECT 292.0 ug/dL Normal 250.0-450.0 [facility] Comment on above: Performed By: #### M G, URIC, RENAL #### [facility] [address] [address] [address] Nacho Jeffery MAGNESIUMon 03-30-2022 Magnesium [Mass/Vol] 1.7 mg/dL Critically low 1.8-2.4 [facility] Comment on above: Performed By: #### M G, URIC, RENAL #### [facility] [address] [address] [address] Nacho Jeffery RENAL FUNCTION PANELon 03-30 Albumin [Mass/Vol] 3.4 g/dL Normal 3.4-5.0 [facility] Comment on above: Performed By: #### M G, URIC, RENAL #### [facility] [address] [address] [address] Nacho Jeffery Calcium [Mass/Vol] 9.3 mg/dL Normal 8.5-10.1 [facility] Comment on above: Performed By: #### M G, URIC, RENAL #### [facility] [address] [address] [address] Nacho Jeffery Chloride [Moles/Vol] 102 mmol/L Normal 98-107 [facility] Comment on above: Performed By: #### M G, URIC, RENAL #### [facility] [address] [address] [address] Nacho Jeffery CO2 [Moles/Vol] 31.7 mmol/L Normal 21.0-32.0 [facility] Comment on above: Performed By: #### M G, URIC, RENAL #### [facility] [address] [place] [address] Dr. Nacho Jeffery Creatinine [Mass/Vol] 2.05 mg/dL Critically high 0.55-1.02 [facility] Comment on above: Performed By: #### M G, URIC, RENAL #### [facility] [address] [address] [address] Nacho Jeffery EGFR-AF MALIAN 28 mL/min/1.73m2 Critically low >=60 [facility] Comment on above: Performed By: #### M G, URIC, RENAL #### [facility] [address] [address] [address] Nacho Jeffery EGFR-NON AF MALIAN 23 mL/min/1.73m2 Critically low >=60 [facility] Comment on above: Performed By: #### M G, URIC, RENAL #### [facility] [address] [address] [address] Nacho Jeffery Glucose [Mass/Vol] 194 mg/dL Critically high 74-106 [facility] Comment on above: Performed By: #### M G, URIC, RENAL #### [facility] [address] [place] [address] Dr. Nacho Jeffery Phosphate [Mass/Vol] 3.2 mg/dL Normal 2.6-4.7 [facility] Comment on above: Performed By: #### M G, URIC, RENAL #### [facility] [address] [address] [address] Nacho Jeffery Potassium [Moles/Vol] 4.6 mmol/L Normal 3.5-5.1 [facility] Comment on above: Performed By: #### M G, URIC, RENAL #### [facility] [address] [address] [address] Nacho Jeffery Sodium [Moles/Vol] 141 mmol/L Normal 136-145 [facility] Comment on above: Performed By: #### M G, URIC, RENAL #### [facility] [address] [address] [address] Nacho Jeffery Urea nitrogen [Mass/Vol] 64.0 mg/dL Critically high 7.0-18.0 [facility] Comment on above: Performed By: #### M G, URIC, RENAL #### [facility] [address] [address] [address] Nacho Jeffery UA RANDOM W/MICROSCOPICon BACTERIA NONE SEEN Normal NONE SEEN [facility] Comment on above: Performed By: #### M G, URIC, RENAL #### [facility] [address] [address] [address] Nacho Jeffery Bilirubin Ql (U) Negative Normal NEGATIVE [facility] Comment on above: Performed By: #### M G, URIC, RENAL #### [facility] [address] [address] [address] Nacho Jeffery CAST NONE SEEN Normal NONE SEEN [facility] Comment on above: Performed By: #### M G, URIC, RENAL #### [facility] [address] [place] [address] Dr. Nacho Jeffery Clarity (U) CLEAR Normal CLEAR [facility] Comment on above: Performed By: #### M G, URIC, RENAL #### [facility] [address] [place] [address] Dr. Nacho Jeffery Color (U) LT. YELLOW Normal YELLOW [facility] Comment on above: Performed By: #### M G, URIC, RENAL #### [facility] [address] [place] [address] Dr. Nacho Jeffery Crystals LM Nom (Urine sed) NONE SEEN Normal NONE SEEN [facility] Comment on above: Performed By: #### M G, URIC, RENAL #### [facility] [address] [place] [address] Dr. Nacho Jeffery Epithelial cells LM Ql (Urine sed) FEW Abnormal NONE SEEN /RARE [facility] Comment on above: Performed By: #### M G, URIC, RENAL #### [facility] [address] [place] [address] Dr. Nacho Jeffery Glucose Ql (U) Negative Normal NEGATIVE [facility] Comment on above: Performed By: #### M G, URIC, RENAL #### [facility] [address] [place] [address] Dr. Nacho Jeffery Hemoglobin Ql (U) Negative Normal NEGATIVE [facility] Comment on above: Performed By: #### M G, URIC, RENAL #### [facility] [address] [place] [address] Dr. Nacho Jeffery Ketones Ql (U) Negative Normal NEGATIVE [facility] Comment on above: Performed By: #### M G, URIC, RENAL #### [facility] [address] [address] [address] Nacho Jeffery LEUKOCYTES SMALL Abnormal NEGATIVE [facility] Comment on above: Performed By: #### M G, URIC, RENAL #### [facility] [address] [address] [address] Nacho Jeffery MUCOUS NONE SEEN Normal NONE SEEN [facility] Comment on above: Performed By: #### M G, URIC, RENAL #### [facility] [address] [place] [address] Dr[address] Nacho Jeffery Nitrite Ql (U) Negative Normal NEGATIVE The [facility] Comment on above: Performed By: #### M G, URIC, RENAL #### [facility] [address] [place] [address] Dr. Nacho Jeffery pH (U) 5.5 [pH] Normal 5-9 [facility] Comment on above: Performed By: #### M G, URIC, RENAL #### [facility] [address] [place] [address] Dr. Nacho Jeffery RBC 0-2 Normal 0-2 [facility] Comment on above: Performed By: #### M G, URIC, RENAL #### [facility] [address] [place] [address] Dr. Nacho Jeffery SPEC GRAVITY 1.015 Normal 1.005-<=1.025 [facility] Comment on above: Performed By: #### M G, URIC, RENAL #### [facility] [address] [place] [address] [address] Nacho Jeffery UA PROTEIN Negative Normal NEGATIVE/ TRACE [facility] Comment on above: Performed By: #### M G, URIC, RENAL #### [facility] [address] [place] [address] [address] Nacho Jeffery Urobilinogen Qn (U) 0.2 {Zuleyka'U}/dL Normal 0.2 - 1. 0 [facility] Comment on above: Performed By: #### M G, URIC, RENAL #### [facility] [address] [place] [address] [address] Nacho Jeffery WBC 5-10 Abnormal NONE SEEN [facility] Comment on above: Performed By: #### M G, URIC, RENAL #### [facility] [address] [place] [address] [address] Nacho Jeffery URIC ACID SERUMon 03-30-2022 Urate [Mass/Vol] 7.0 mg/dL Critically high 2.6-6.0 [facility] Comment on above: Performed By: #### M G, URIC, RENAL #### [facility] [address] [place] [address] Dr. Nacho Jeffery URINE T PROTEIN CREAT RATIOo n 03-30-2022 Protein (U) [Mass/Vol] 7.1 mg/dL Normal <=12.0 [facility] Comment on above: Performed By: #### U RTPCR #### [facility] [address] [place] [address] Dr. Nacho Jeffery UR PROT CREAT RAT 0.06 Normal [facility] Comment on above: Performed By: #### U RTPCR #### [facility] [address] [place] [address] [address] Nacho Jeffery URINE CREAT 113.23 mg/dL Normal 20.00-300.00 [facility] Comment on above: Performed By: #### U RTPCR #### [facility] [address] [place] [address] Dr. Nacho Jeffery VITAMIN D 25 OHon 03-30-2022 VIT D 25-OH 57.4 ng/mL Normal [facility] Comment on above: Performed By: #### M G, URIC, RENAL #### [facility] [address] [place] [address] Dr. Nacho Jeffery VIT D RANGES SEE BELOW Normal [facility] Comment on above: Result Comment: <20 ng/mL Vit D deficient 20 - <30 ng/mL Vit D insufficient 30 - 100 ng/mL Vit D sufficient >100 ng/mL Potential Toxicity Performed By: #### M G, URIC, RENAL #### [facility] [address] [place], [place] [id number] Dr. Nacho Jeffery [facility] 08-30-2021 Albumin [Mass/Vol] 3.7 g/dL Normal 3.6-5.1 [facility] Comment on above: Performed By: #### 1 0231, 7600 #### [facility] [place] [address] [employer]: Mauricio Kern MD Albumin/Globulin [Mass ratio] 1.4 {ratio} Normal 1.0-2.5 [facility] Comment on above: Performed By: #### 1 023, 7600 #### [facility] [place] [address] [employer] Associate: Mauricio Kern MD ALP [Catalytic activity/Vol] 98 U/L Normal 37-153 [facility] Comment on above: Performed By: #### 1 023, 7600 #### [facility] [place] [address] [employer] Associate: Mauricio Kern MD ALT [Catalytic activity/Vol] 23 U/L Normal 6-29 [facility] Comment on above: Performed By: #### 1 0231, 7600 #### [facility] [place] [address] [employer]: Mauricio Kern MD AST [Catalytic activity/Vol] 22 U/L Normal 10-35 [facility] Comment on above: Performed By: #### 1 0231, 7600 #### [facility] [place] [address] [employer]: Mauricio Kern MD Bilirubin [Mass/Vol] 0.4 mg/dL Normal 0.2-1.2 [facility] Comment on above: Performed By: #### 1 0231, 7600 #### [facility] [place] [address] [employer] Associate: Mauricio Kern MD Calcium [Mass/Vol] 9.2 mg/dL Normal 8.6-10.4 [facility] Comment on above: Performed By: #### 1 0231, 7600 #### [facility] of [address], [address] [place] [address] [employer]: Mauricio Kern MD Chloride [Moles/Vol] 103 mmol/L Normal 98-110 [facility] Comment on above: Performed By: #### 1 0231, 7600 #### [facility] of [address], [address] [place] [address] [employer]: Mauricio Kern MD CO2 [Moles/Vol] 28 mmol/L Normal 20-32 [facility] Comment on above: Performed By: #### 1 0231, 7600 #### [facility] of [address], [address] [place] [address] [employer]: Mauricio Kern MD Creatinine [Mass/Vol] 2.22 mg/dL High 0.60-0.93 [facility] Comment on above: Result Comment: For patients >49 years of age, the reference limit for Creatinine is approximately 13% higher for people identified as -[place]. Performed By: #### 1 023, 7600 #### [facility] of [address], [address] [place] [address] [employer]: Mauricio Kern MD eGFR NON-AFR. MALIAN 21 mL/min/1.73m2 Low > OR = 60 [facility] Comment on above: Performed By: #### 1 023, 7600 #### [facility] of [address], [address] [place] [address] [employer]: Mauricio Kern MD GFR/1.73 sq M.predicted among blacks MDRD (S/P/Bld) [Vol rate/Area] 24 mL/min/{1.73_m2} Low > OR = 60 [facility] Comment on above: Performed By: #### 1 0231, 7600 #### [facility] of [address], [address] [place] [address] [employer]: Mauricio Kern MD Globulin (S) [Mass/Vol] 2.7 g/dL Normal 1.9-3.7 [facility] Comment on above: Performed By: #### 1 023, 7600 #### [facility] [place] [address] [employer] Associate: Mauricio Kern MD Glucose [Mass/Vol] 107 mg/dL High 65-99 [facility] Comment on above: Result Comment: Fasting reference interval For someone without known diabetes, a glucose value between 100 and 125 mg/dL is consistent with prediabetes and should be confirmed with a follow-up test. Performed By: #### 1 023, 7600 #### [facility] [place] [address] [employer] Associate: Mauricio Kern MD Potassium [Moles/Vol] 4.7 mmol/L Normal 3.5-5.3 [facility] Comment on above: Performed By: #### 1 230, 0 #### [facility] [place] [address] [employer] Associate: Mauricio Kern MD Protein [Mass/Vol] 6.4 g/dL Normal 6.1-8.1 [facility] Comment on above: Performed By: #### 1 230, 7600 #### [facility] [place] [address] [employer]: Mauricio Kern MD Sodium [Moles/Vol] 141 mmol/L Normal 135-146 [facility] Comment on above: Performed By: #### 1 023, 7600 #### [facility] [place] [address] [employer]: Mauricio Kern MD Urea nitrogen [Mass/Vol] 69 mg/dL High 7-25 [facility] Comment on above: Performed By: #### 1 023, 7600 #### [facility] [place] [address] [employer] Associate: Mauricio Kern MD Urea nitrogen/Creatinine [Mass ratio] 31 mg/mg High 6-22 [facility] Comment on above: Performed By: #### 1 023, 7600 #### [facility] [address], [address] [place] [address] [employer]: Mauricio Kern MD LIPID PANEL, [address] Cholesterol [Mass/Vol] 142 mg/dL Normal <200 [facility] Comment on above: Order Comment: FASTI NG:YES FASTING: YES Performed By: #### 1 0231, 7600 #### [facility] [address], [address] [place] [address] [employer]: Mauricio Kern MD Cholesterol in HDL [Mass/Vol] 47 mg/dL Low > OR = 50 [facility] Comment on above: Order Comment: FASTI NG:YES FASTING: YES Performed By: #### 1 023, 7600 #### [facility] [address], [address] [place] [address] [employer]: Mauricio Kern MD Cholesterol in LDL [...] LDL-C. Sean BREAUX et al. SHRUTHI. 2013;310(19): 7784-3549 (http://education.oncgnostics GmbH.Usetrace/faq/RGP248) Performed By: #### 1 0231, 0 #### [facility] [address], [address] [place] [address] [employer]: Mauricio Kern MD Cholesterol.total/C holesterol in HDL [Mass ratio] 3.0 {ratio} Normal <5.0 [facility] Comment on above: Order Comment: FASTI NG:YES FASTING: YES Performed By: #### 1 0231, 7600 #### [facility] [address], [address] [place] [address] [employer]: Mauricio Kern MD NON HDL CHOLESTEROL 95 mg/dL (calc) Normal <130 [facility] Comment on above: Order Comment: FASTI NG:YES FASTING: YES Result Comment: For patients with diabetes plus 1 major ASCVD risk factor, treating to a non-HDL-C goal of <100 mg/dL (LDL-C of <70 mg/dL) is considered a therapeutic option. Performed By: #### 1 0231, 7600 #### [facility] [address], [address] [place] [address] [employer] Associate: Mauricio Kern MD Triglyceride [Mass/Vol] 188 mg/dL High <150 [facility] Comment on above: Order Comment: FASTI NG:YES FASTING: YES Performed By: #### 1 0231, 7600 #### [facility] [address], [address] [place] [address] [employer] Associate: Mauricio Kern MD BASIC METABOLIC PANEL 05- Calcium [Mass/Vol] 10.0 mg/dL Normal 8.6-10.3 [facility] Comment on above: Performed By: #### 0 0071 #### [facility] [address] [facility] [place] [address], [facility] Chloride [Moles/Vol] 101 mmol/L Normal 98-107 [facility] Comment on above: Performed By: #### 0 0071 #### [facility] [address] [place] [address], [place] CO2 [Moles/Vol] 28 mmol/L Normal 21-31 [facility] Comment on above: Performed By: #### 0 0071 #### [facility] [address] [place] [address], [place] Creatinine [Mass/Vol] 1.96 mg/dL High 0.60-1.20 [facility] Comment on above: Performed By: #### 0 0071 #### [facility] [address] [place] [address], [place] eGFR- 30 ml/min/1.73sq m Abnormal >60 [facility] Comment on above: Result Comment: Calc ulation may not be valid for patients over 70 years Performed By: #### 0 0071 #### [facility] [address] [place] [address], [facility] eGFR- non- 24 ml/min/1.73sq m Abnormal >60 [facility] Comment on above: Result Comment: Calc ulation may not be valid for patients over 70 years Performed By: #### 0 0071 #### [facility] [address] [place] [address], [place] Glucose [Mass/Vol] 171 mg/dL High 70-100 [facility] Comment on above: Performed By: #### 0 0071 #### [facility] [address] [place] [address], [place] Potassium [Moles/Vol] 3.9 mmol/L Normal 3.5-5.1 [facility] Comment on above: Performed By: #### 0 0071 #### [facility] [address] [place] [address], [place] Sodium [Moles/Vol] 139 mmol/L Normal 136-145 [facility] Comment on above: Performed By: #### 0 0071 #### [facility] [address] [place] [address], [place] Urea nitrogen [Mass/Vol] 66 mg/dL High 7-25 [facility] Comment on above: Performed By: #### 0 0071 #### [facility] [address] [place] [address], [place] Cardiovascular Lab Reporton 03-30-2021 Cardiovascular Lab Report [place] Patient Name: Adore Wolff [facility] MR #: [id number] Physician: Moe Parham, Department of M.D. Medicine Service Date: 03/30/2021 Division of Birthdate: 1940 Cardiology Room #: Adult Cardiovascular Services [facility] [address] [place] [address] Cardiovascular Laboratory Report FINAL IMPRESSIONS: 1. Moderate [...] enzyme inhibitor/receptor micki. 4. Follow up with [facility] Cardiology in the next 2 to 3 months. 5. Follow up with Dr. Clark as scheduled. PROCEDURES: Bilateral selective coronary angiography [...] the left radial artery was obtained. A 6-Nepalese glide sheath was inserted without difficulty. Bilateral selective coronary angiography was performed using JL4 and a 4-Nepalese 3DRC catheter. After reviewing the images and [...] Parham M.D. Date Trans: 03/30/2021 03:19 P/molly [id number] cc: Fernie Clark M.D. [address], [address] [place] [address] [facility] Vital Signs Date Time Vital Sign Value Performing Clinician Facility 12-26-2024 09:33-0500 Body temperature 97.7 [degF] Fernie Clark [facility] [employer] [facility] 12-26-2024 09:33-0500 Diastolic blood pressure 78 mm[Hg] Fernie MolinaSkyway Softwa[employer] DO Work Phone: [facility] [employer] [facility] 12-26-2024 09:33-0500 Heart rate 64 /min Fernie Mol[employer] [facility] 12-26-2024 09:33-0500 Respiratory rate 18 /min [facility] 12-26-2024 09:33-0500 SaO2% (BldA) [Mass fraction] 98 % [email or web address] DO Work Phone: [facility] [employer] [facility] 12-26-2024 09:33-0500 Systolic blood pressure 178 mm[Hg] Fernie MolinaSkyway [employer]wa[employer] DO Work Phone: [employer] [facility] 12-19-2024 11:12-0500 Body mass index (BMI) [Ratio] 43.27 kg/m2 Fernie Furlong DO Work Phone: [facility] [employer] 12-19-2024 11:12-0500 Body temperature 97.7 [degF] Fernie Furlong DO Work Phone: [facility] [employer] 12-19-2024 11:12-0500 Body weight 117.94 kg Fernie Furlong DO Work Phone: [facility] [employer] 12-19-2024 11:12-0500 Heart rate 60 /min [employer] DO Work Phone: [facility] [employer] 12-19-2024 11:12-0500 Respiratory rate 18 /min [employer] DO Work Phone: [facility] [employer] 12-19-2024 11:12-0500 SaO2% (BldA) [Mass fraction] 95 % [employer] DO Work Phone: [facility] [employer] [facility] 11-04-2024 09:42-0500 Body height 165.1 cm Pfo 1 [facility] [employer] [facility] 11-04-2024 09:42-0500 Body mass index (BMI) [Ratio] 45.26 kg/m2 Pfo 1 [facility] [employer] [facility] 11-04-2024 09:42-0500 Body temperature 97.5 [degF] Pfo 1 [facility] [employer] [facility] 11-04-2024 09:42-0500 Body weight 123.38 kg Pfo 1 [facility] [employer] [facility] 11-04-2024 09:42-0500 Diastolic blood pressure 65 mm[Hg] Pfo 1 [facility] [employer] [facility] 11-04-2024 09:42-0500 Heart rate 65 /min Pfo 1 [facility] 11-04-2024 09:42-0500 Respiratory rate 18 /min Pfo 1 [facility] [employer] [facility] 11-04-2024 09:42-0500 SaO2% (BldA) [Mass fraction] 98 % Pfo 1 [facility] 11-04-2024 09:42-0500 Systolic blood pressure 153 mm[Hg] Pfo 1 [facility] 10-07-2024 09:29-0500 Body height 165.1 cm Pfo 2 [facility] 10-07-2024 09:29-0500 Body mass index (BMI) [Ratio] 45.26 kg/m2 Pfo 2 [facility] 10-07-2024 09:29-0500 Body temperature 97.59 [degF] Pfo 2 [facility] 10-07-2024 09:29-0500 Body weight 123.38 kg Pfo 2 [facility] 10-07-2024 09:29-0500 Diastolic blood pressure 63 mm[Hg] Pfo 2 [facility] 10-07-2024 09:29-0500 Heart rate 72 /min Pfo 2 [facility] 10-07-2024 09:29-0500 Respiratory rate 18 /min Pfo 2 [facility] 10-07-2024 09:29-0500 SaO2% (BldA) [Mass fraction] 94 % Pfo 2 [facility] 10-07-2024 09:29-0500 Systolic blood pressure 155 mm[Hg] Pfo 2 [facility] 10-01-2024 09:24-0500 Body height 165.1 cm Pfo 5 [facility] 10-01-2024 09:24-0500 Body mass index (BMI) [Ratio] 45.26 kg/m2 Pfo 5 [facility] 10-01-2024 09:24-0500 Body temperature 97.39 [degF] Pfo 5 [facility] 10-01-2024 09:24-0500 Body weight 123.38 kg Pfo 5 [facility] 10-01-2024 09:24-0500 Diastolic blood pressure 56 mm[Hg] Pfo 5 [facility] 10-01-2024 09:24-0500 Heart rate 76 /min Pfo 5 [facility] 10-01-2024 09:24-0500 Respiratory rate 16 /min Pfo 5 [facility] 10-01-2024 09:24-0500 SaO2% (BldA) [Mass fraction] 96 % Pfo 5 [facility] 10-01-2024 09:24-0500 Systolic blood pressure 153 mm[Hg] Pfo 5 [facility] 09-10-2024 09:21-0400 Body temperature 97.7 [degF] Pfo 5 [facility] 09-10-2024 09:21-0400 Diastolic blood pressure 61 mm[Hg] Pfo 5 [facility] 09-10-2024 09:21-0400 Heart rate 68 /min Pfo 5 [facility] 09-10-2024 09:21-0400 Respiratory rate 18 /min Pfo 5 [facility] 09-10-2024 09:21-0400 SaO2% (BldA) [Mass fraction] 99 % Pfo 5 [facility] 09-10-2024 09:21-0400 Systolic blood pressure 164 mm[Hg] Pfo 5 [facility] 08-27-2024 09:270400 Body height 165.1 cm Pfo 5 [facility] 08-27-2024 09:27-0400 Body mass index (BMI) [Ratio] 46.1 kg/m2 Pfo 5 [facility] 08-27-2024 09:27-0400 Body temperature 97.39 [degF] Pfo 5 [facility] 08-27-2024 09:27-0400 Body weight 125.65 kg Pfo 5 [facility] 08-27-2024 09:27-0400 Diastolic blood pressure 86 mm[Hg] Pfo 5 [facility] 08-27-2024 09:27-0400 Heart rate 75 /min Pfo 5 [facility] 08-27-2024 09:27-0400 Respiratory rate 16 /min Pfo 5 [facility] 08-27-2024 09:27-0400 SaO2% (BldA) [Mass fraction] 98 % Pfo 5 [facility] 08-27-2024 09:27-0400 Systolic blood pressure 151 mm[Hg] Pfo 5 [facility] 08-20-2024 09:17-0400 Body height 165.1 cm Pfo 5 [facility] 08-20-2024 09:17-0400 Body mass index (BMI) [Ratio] 46.1 kg/m2 Pfo 5 [facility] 08-20-2024 09:17-0400 Body temperature 97.59 [degF] Pfo 5 [facility] 08-20-2024 09:17-0400 Body weight 125.65 kg Pfo 5 [facility] 08-20-2024 09:17-0400 Diastolic blood pressure 67 mm[Hg] Pfo 5 [facility] 08-20-2024 09:17-0400 Heart rate 66 /min Pfo 5 [facility] 08-20-2024 09:17-0400 Respiratory rate 16 /min Pfo 5 [facility] 08-20-2024 09:17-0400 SaO2% (BldA) [Mass fraction] 99 % Pfo 5 [facility] 08-20-2024 09:17-0400 Systolic blood pressure 167 mm[Hg] Pfo 5 [facility] 08-13-2024 09:20-0400 Body height 165.1 cm Pfo 4 [facility] 08-13-2024 09:20-0400 Body mass index (BMI) [Ratio] 46.1 kg/m2 Pfo 4 [facility] 08-13-2024 09:20-0400 Body temperature 97.59 [degF] Pfo 4 [facility] 08-13-2024 09:20-0400 Body weight 125.65 kg Pfo 4 [facility] 08-13-2024 09:20-0400 Diastolic blood pressure 65 mm[Hg] Pfo 4 [facility] 08-13-2024 09:20-0400 Heart rate 70 /min Pfo 4 [facility] 08-13-2024 09:20-0400 Respiratory rate 16 /min Pfo 4 [facility] 08-13-2024 09:20-0400 SaO2% (BldA) [Mass fraction] 96 % Pfo 4 [facility] 08-13-2024 09:20-0400 Systolic blood pressure 169 mm[Hg] Pfo 4 [facility] 08-06-2024 09:27-0400 Body height 165.1 cm Pfo 5 [facility] 08-06-2024 09:27-0400 Body mass index (BMI) [Ratio] 46.1 kg/m2 Pfo 5 [facility] 08-06-2024 09:27-0400 Body temperature 97.5 [degF] Pfo 5 [facility] 08-06-2024 09:27-0400 Body weight 125.65 kg Pfo 5 [facility] 08-06-2024 09:27-0400 Diastolic blood pressure 54 mm[Hg] Pfo 5 [facility] 08-06-2024 09:27-0400 Heart rate 73 /min Pfo 5 [facility] 08-06-2024 09:27-0400 Respiratory rate 16 /min Pfo 5 [facility] 08-06-2024 09:27-0400 SaO2% (BldA) [Mass fraction] 95 % Pfo 5 [facility] 08-06-2024 09:27-0400 Systolic blood pressure 160 mm[Hg] Pfo 5 [facility] 07-30-2024 09:22-0400 Body height 165.1 cm Pfo 5 [facility] 07-30-2024 09:22-0400 Body mass index (BMI) [Ratio] 46.26 kg/m2 Pfo 5 [facility] 07-30-2024 09:22-0400 Body temperature 97.2 [degF] Pfo 5 [facility] 07-30-2024 09:22-0400 Body weight 126.1 kg Pfo 5 [facility] 07-30-2024 09:22-0400 Diastolic blood pressure 63 mm[Hg] Pfo 5 [facility] 07-30-2024 09:22-0400 Heart rate 68 /min Pfo 5 [facility] 07-30-2024 09:22-0400 Respiratory rate 16 /min Pfo 5 [facility] 07-30-2024 09:22-0400 SaO2% (BldA) [Mass fraction] 94 % Pfo 5 [facility] 07-30-2024 09:22-0400 Systolic blood pressure 148 mm[Hg] Pfo 5 [facility] 07-23-2024 09:25-0400 Body height 165.1 cm Pfo 5 [facility] 07-23-2024 09:25-0400 Body mass index (BMI) [Ratio] 46.26 kg/m2 Pfo 5 [facility] 07-23-2024 09:25-0400 Body weight 126.1 kg Pfo 5 [facility] 07-23-2024 09:25-0400 Diastolic blood pressure 55 mm[Hg] Pfo 5 [facility] 07-23-2024 09:25-0400 Heart rate 62 /min Pfo 5 [facility] 07-23-2024 09:25-0400 Respiratory rate 16 /min Pfo 5 [facility] 07-23-2024 09:25-0400 SaO2% (BldA) [Mass fraction] 97 % Pfo 5 [facility] 07-23-2024 09:25-0400 Systolic blood pressure 155 mm[Hg] Pfo 5 [facility] 07-16-2024 09:44-0400 Body height 165.1 cm Pfo 5 [facility] 07-16-2024 09:44-0400 Body mass index (BMI) [Ratio] 46.26 kg/m2 Pfo 5 [facility] 07-16-2024 09:44-0400 Body temperature 97.7 [degF] Pfo 5 [facility] 07-16-2024 09:44-0400 Body weight 126.1 kg Pfo 5 [facility] 07-16-2024 09:44-0400 Diastolic blood pressure 54 mm[Hg] Pfo 5 [facility] 07-16-2024 09:44-0400 Heart rate 70 /min Pfo 5 [facility] 07-16-2024 09:44-0400 Respiratory rate 16 /min Pfo 5 [facility] 07-16-2024 09:44-0400 SaO2% (BldA) [Mass fraction] 100 % Pfo 5 [facility] 07-16-2024 09:44-0400 Systolic blood pressure 160 mm[Hg] Pfo 5 [facility] 07-09-2024 09:49-0400 Body height 165.1 cm Pfo 1 [facility] 07-09-2024 09:49-0400 Body mass index (BMI) [Ratio] 46.26 kg/m2 Pfo 1 [facility] 07-09-2024 09:49-0400 Body temperature 98.2 [degF] [facility] [facility] 07-09-2024 09:49-0400 Body weight 126.1 kg Pfo 1 [facility] 07-09-2024 09:49-0400 Diastolic blood pressure 52 mm[Hg] Pfo 1 [facility] 07-09-2024 09:49-0400 Heart rate 78 /min Pfo 1 [facility] 07-09-2024 09:49-0400 Respiratory rate 16 /min Pfo 1 [facility] 07-09-2024 09:49-0400 SaO2% (BldA) [Mass fraction] 96 % Pfo 1 [facility] 07-09-2024 09:49-0400 Systolic blood pressure 147 mm[Hg] Pfo 1 [facility] 07-02-2024 09:34-0400 Body height 165.1 cm Pfo 1 [facility] 07-02-2024 09:34-0400 Body mass index (BMI) [Ratio] 46.26 kg/m2 Pfo 1 [facility] 07-02-2024 09:34-0400 Body temperature 97.39 [degF] Pfo 1 [facility] 07-02-2024 09:34-0400 Body weight 126.1 kg Pfo 1 [facility] 07-02-2024 09:34-0400 Diastolic blood pressure 60 mm[Hg] Pfo 1 [facility] 07-02-2024 09:34-0400 Heart rate 66 /min Pfo 1 [facility] 07-02-2024 09:34-0400 Respiratory rate 16 /min Pfo 1 [facility] 07-02-2024 09:34-0400 SaO2% (BldA) [Mass fraction] 98 % Pfo 1 [facility] 07-02-2024 09:34-0400 Systolic blood pressure 153 mm[Hg] Pfo 1 [facility] 06-25-2024 [id number] Body height 165.1 cm Pfo 7 [facility] 06-25-2024 09:26-0400 Body mass index (BMI) [Ratio] 46.26 kg/m2 Pfo 7 [facility] 06-25-2024 09:26-0400 Body temperature 97.39 [degF] Pfo 7 [facility] 06-25-2024 09:26-0400 Body weight 126.1 kg Pfo 7 [facility] 06-25-2024 09:26-0400 Diastolic blood pressure 66 mm[Hg] Pfo 7 [facility] 06-25-2024 09:26-0400 Heart rate 83 /min Pfo 7 [facility] 06-25-2024 09:26-0400 Respiratory rate 16 /min Pfo 7 [facility] 06-25-2024 09:26-0400 SaO2% (BldA) [Mass fraction] 98 % Pfo 7 [facility] 06-25-2024 09:26-0400 Systolic blood pressure 156 mm[Hg] Pfo 7 [facility] 06-18-2024 09:30-0400 Body height 165.1 cm Pfo 1 [facility] 06-18-2024 09:30-0400 Body mass index (BMI) [Ratio] 46.1 kg/m2 Pfo 1 [facility] 06-18-2024 09:30-0400 Body temperature 97.5 [degF] Pfo 1 [facility] 06-18-2024 09:30-0400 Body weight 125.65 kg Pfo 1 [facility] 06-18-2024 09:30-0400 Diastolic blood pressure 46 mm[Hg] Pfo 1 [facility] 06-18-2024 09:30-0400 Heart rate 72 /min Pfo 1 [facility] 06-18-2024 09:30-0400 Respiratory rate 20 /min Pfo 1 [facility] 06-18-2024 09:30-0400 SaO2% (BldA) [Mass fraction] 95 % Pfo 1 [facility] 06-18-2024 09:30-0400 Systolic blood pressure 148 mm[Hg] Pfo 1 [facility] 06-11-2024 09:21-0400 Body height 165.1 cm Pfo 1 [facility] 06-11-2024 09:21-0400 Body mass index (BMI) [Ratio] 46.26 kg/m2 Pfo 1 [facility] 06-11-2024 09:21-0400 Body temperature 97.59 [degF] Pfo 1 [facility] 06-11-2024 09:21-0400 Body weight 126.1 kg Pfo 1 [facility] 06-11-2024 09:21-0400 Diastolic blood pressure 60 mm[Hg] Pfo 1 [facility] 06-11-2024 09:21-0400 Heart rate 88 /min Pfo 1 [facility] 06-11-2024 09:21-0400 Respiratory rate 20 /min Pfo 1 [facility] 06-11-2024 09:21-0400 SaO2% (BldA) [Mass fraction] 96 % Pfo 1 [facility] 06-11-2024 09:21-0400 Systolic blood pressure 147 mm[Hg] Pfo 1 [facility] 05-28-2024 09:34-0400 Body height 165.1 cm Pfo 1 [facility] 05-28-2024 09:34-0400 Body mass index (BMI) [Ratio] 46.43 kg/m2 Pfo 1 [facility] 05-28-2024 09:34-0400 Body temperature 97.5 [degF] Pfo 1 [facility] 05-28-2024 09:34-0400 Body weight 126.55 kg Pfo 1 [facility] 05-28-2024 09:34-0400 Diastolic blood pressure 66 mm[Hg] Pfo 1 [facility] 05-28-2024 09:34-0400 Heart rate 71 /min Pfo 1 [facility] 05-28-2024 09:34-0400 Respiratory rate 20 /min Pfo 1 [facility] 05-28-2024 09:34-0400 SaO2% (BldA) [Mass fraction] 99 % Pfo 1 [facility] 05-28-2024 09:34-0400 Systolic blood pressure 152 mm[Hg] Pfo 1 [facility] 05-27-2024 13:09-0400 Body height 165.1 cm Fernie Furlong DO Work Phone: [facility] 05-27-2024 13:09-0400 Body mass index (BMI) [Ratio] 46.64 kg/m2 Fernie Furlong DO Work Phone: [facility] 05-27-2024 13:09-0400 Body temperature 97.9 [degF] Fernie Furlong DO Work Phone: [facility] 05-27-2024 13:09-0400 Body weight 127.14 kg Fernie Furlong DO Work Phone: [facility] 05-27-2024 13:09-0400 Diastolic blood pressure 60 mm[Hg] Fernie Furlong DO Work Phone: [facility] 05-27-2024 13:09-0400 Heart rate 74 /min Fernie Furlong DO Work Phone: [facility] 05-27-2024 13:09-0400 Respiratory rate 18 /min Fernie Furlong DO Work Phone: [facility] 05-27-2024 13:09-0400 SaO2% (BldA) [Mass fraction] 94 % Fernie Furlong DO Work Phone: [facility] 05-27-2024 13:09-0400 Systolic blood pressure 140 mm[Hg] Fernie Furlong DO Work Phone: [facility] 05-21-2024 09:27-0400 Body height 165.1 cm Pfo 1 [facility] 05-21-2024 09:27-0400 Body mass index (BMI) [Ratio] 46.43 kg/m2 Pfo 1 [facility] 05-21-2024 09:27-0400 Body temperature 97.7 [degF] Pfo 1 [facility] 05-21-2024 09:27-0400 Body weight 126.55 kg Pfo 1 [facility] 05-21-2024 09:27-0400 Diastolic blood pressure 46 mm[Hg] Pfo 1 [facility] 05-21-2024 09:27-0400 Heart rate 63 /min Pfo 1 [facility] 05-21-2024 09:27-0400 Respiratory rate 20 /min Pfo 1 [facility] 05-21-2024 09:27-0400 SaO2% (BldA) [Mass fraction] 95 % Pfo 1 [facility] 05-21-2024 09:27-0400 Systolic blood pressure 167 mm[Hg] Pfo 1 [facility] 05-14-2024 09:15-0400 Body height 165.1 cm Pfo 1 [facility] 05-14-2024 09:15-0400 Body mass index (BMI) [Ratio] 46.43 kg/m2 Pfo 1 [facility] 05-14-2024 09:15-0400 Body temperature 97.81 [degF] Pfo 1 [facility] 05-14-2024 09:15-0400 Body weight 126.55 kg Pfo 1 [facility] 05-14-2024 09:15-0400 Diastolic blood pressure 59 mm[Hg] Pfo 1 [facility] 05-14-2024 09:15-0400 Heart rate 72 /min Pfo 1 [facility] 05-14-2024 09:15-0400 Respiratory rate 20 /min Pfo 1 [facility] 05-14-2024 09:15-0400 SaO2% (BldA) [Mass fraction] 95 % Pfo 1 [facility] 05-14-2024 09:15-0400 Systolic blood pressure 161 mm[Hg] Pfo 1 [facility] 05-07-2024 09:25-0400 Body height 165.1 cm Pfo 1 [facility] 05-07-2024 09:25-0400 Body mass index (BMI) [Ratio] 47.09 kg/m2 Pfo 1 [facility] 05-07-2024 09:25-0400 Body temperature 98.4 [degF] Pfo 1 [facility] 05-07-2024 09:25-0400 Body weight 128.37 kg Pfo 1 [facility] 05-07-2024 09:25-0400 Diastolic blood pressure 47 mm[Hg] Pfo 1 [facility] 05-07-2024 09:25-0400 Heart rate 69 /min Pfo 1 [facility] 05-07-2024 09:25-0400 Respiratory rate 20 /min Pfo 1 [facility] 05-07-2024 09:25-0400 SaO2% (BldA) [Mass fraction] 95 % Pfo 1 [facility] 05-07-2024 09:25-0400 Systolic blood pressure 169 mm[Hg] Pfo 1 [facility] 05-01-2024 13:52-0400 Body height 165.1 cm [facility] 05-01-2024 13:52-0400 Body mass index (BMI) [Ratio] 47.5 kg/m2 [facility] 05-01-2024 13:52-0400 Body temperature 96.7 [degF] [facility] 05-01-2024 13:52-0400 Body weight 129.38 kg [facility] 05-01-2024 13:52-0400 Diastolic blood pressure 60 mm[Hg] [facility] 05-01-2024 13:52-0400 Heart rate 76 /min [facility] 05-01-2024 13:52-0400 Respiratory rate 18 /min [facility] 05-01-2024 13:52-0400 SaO2% (BldA) [Mass fraction] 95 % [facility] 05-01-2024 13:52-0400 Systolic blood pressure 130 mm[Hg] [facility] 04-30-2024 09:19-0400 Body height 165.1 cm Pfo 1 [facility] 04-30-2024 09:19-0400 Body mass index (BMI) [Ratio] 47.26 kg/m2 Pfo 1 [facility] 04-30-2024 09:190400 Body temperature 97.81 [degF] Pfo 1 [facility] 04-30-2024 09:190400 Body weight 128.82 kg Pfo 1 [facility] 04-30-2024 09:19-0400 Diastolic blood pressure 68 mm[Hg] Pfo 1 [facility] 04-30-2024 09:19-0400 Heart rate 65 /min Pfo 1 [facility] 04-30-2024 09:19-0400 Respiratory rate 20 /min Pfo 1 [facility] 04-30-2024 09:190400 SaO2% (BldA) [Mass fraction] 93 % Pfo 1 [facility] 04-30-2024 09:19-0400 Systolic blood pressure 175 mm[Hg] Pfo 1 [facility] 04-23-2024 [id number] Body height 165.1 cm Pfo 6 [facility] 04-23-2024 09:28-0400 Body mass index (BMI) [Ratio] 46.93 kg/m2 Pfo 6 [facility] 04-23-2024 09:28-0400 Body temperature 97.7 [degF] Pfo 6 [facility] 04-23-2024 [id number] Body weight 127.91 kg Pfo 6 [facility] 04-23-2024 09:28-0400 Diastolic blood pressure 56 mm[Hg] Pfo 6 [facility] 04-23-2024 09:28-0400 Heart rate 69 /min Pfo 6 [facility] 04-23-2024 09:28-0400 Respiratory rate 24 /min Pfo 6 [facility] 04-23-2024 09:28-0400 SaO2% (BldA) [Mass fraction] 98 % Pfo 6 [facility] 04-23-2024 09:28-0400 Systolic blood pressure 177 mm[Hg] Pfo 6 [facility] 04-16-2024 09:190400 Body height 165.1 cm Pfo 6 [facility] 04-16-2024 09:19-0400 Body mass index (BMI) [Ratio] 46.76 kg/m2 Pfo 6 [facility] 04-16-2024 09:19-0400 Body temperature 97.39 [degF] Pfo 6 [facility] 04-16-2024 09:19-0400 Body weight 127.46 kg Pfo 6 [facility] 04-16-2024 09:19-0400 Diastolic blood pressure 65 mm[Hg] Pfo 6 [facility] 04-16-2024 09:19-0400 Heart rate 72 /min Pfo 6 [facility] 04-16-2024 09:19-0400 Respiratory rate 18 /min Pfo 6 [facility] 04-16-2024 09:19-0400 SaO2% (BldA) [Mass fraction] 96 % Pfo 6 [facility] 04-16-2024 09:19-0400 Systolic blood pressure 177 mm[Hg] Pfo 6 [facility] 04-09-2024 09:33-0400 Body height 165.1 cm Pfo 6 [facility] 04-09-2024 09:33-0400 Body mass index (BMI) [Ratio] 46.59 kg/m2 Pfo 6 [facility] 04-09-2024 09:33-0400 Body temperature 97.59 [degF] Pfo 6 [facility] 04-09-2024 09:33-0400 Body weight 127.01 kg Pfo 6 [facility] 04-09-2024 09:33-0400 Diastolic blood pressure 66 mm[Hg] Pfo 6 [facility] 04-09-2024 09:33-0400 Heart rate 66 /min Pfo 6 [facility] 04-09-2024 09:33-0400 Respiratory rate 20 /min Pfo 6 [facility] 04-09-2024 09:33-0400 SaO2% (BldA) [Mass fraction] 96 % Pfo 6 [facility] 04-09-2024 09:33-0400 Systolic blood pressure 169 mm[Hg] Pfo 6 [facility] 04-02-2024 09:24-0400 Body height 165.1 cm Pfo 4 [facility] 04-02-2024 09:24-0400 Body mass index (BMI) [Ratio] 46.43 kg/m2 Pfo 4 [facility] 04-02-2024 09:24-0400 Body temperature 97.7 [degF] Pfo 4 [facility] 04-02-2024 09:24-0400 Body weight 126.55 kg Pfo 4 [facility] 04-02-2024 09:24-0400 Diastolic blood pressure 58 mm[Hg] Pfo 4 [facility] 04-02-2024 09:24-0400 Heart rate 71 /min Pfo 4 [facility] 04-02-2024 09:24-0400 Respiratory rate 20 /min Pfo 4 [facility] 04-02-2024 09:24-0400 SaO2% (BldA) [Mass fraction] 96 % Pfo 4 [facility] 04-02-2024 09:24-0400 Systolic blood pressure 168 mm[Hg] Pfo 4 [facility] 03-26-2024 09:32-0400 Body height 165.1 cm Pfo 6 [facility] 03-26-2024 09:32-0400 Body mass index (BMI) [Ratio] 46.1 kg/m2 Pfo 6 [facility] 03-26-2024 09:32-0400 Body temperature 97.7 [degF] Pfo 6 [facility] 03-26-2024 09:32-0400 Body weight 125.65 kg Pfo 6 [facility] 03-26-2024 09:32-0400 Diastolic blood pressure 67 mm[Hg] Pfo 6 [facility] 03-26-2024 09:32-0400 Heart rate 67 /min Pfo 6 [facility] 03-26-2024 09:32-0400 Respiratory rate 20 /min Pfo 6 [facility] 03-26-2024 09:32-0400 SaO2% (BldA) [Mass fraction] 95 % Pfo 6 [facility] 03-26-2024 09:32-0400 Systolic blood pressure 152 mm[Hg] Pfo 6 [facility] 03-19-2024 09:37-0400 Body height 165.1 cm Pfo 4 [facility] 03-19-2024 09:37-0400 Body mass index (BMI) [Ratio] 45.93 kg/m2 Pfo 4 [facility] 03-19-2024 09:37-0400 Body temperature 97.9 [degF] Pfo 4 [facility] 03-19-2024 09:37-0400 Body weight 125.19 kg Pfo 4 [facility] 03-19-2024 09:37-0400 Diastolic blood pressure 67 mm[Hg] Pfo 4 [facility] 03-19-2024 09:37-0400 Heart rate 65 /min Pfo 4 [facility] 03-19-2024 09:37-0400 Respiratory rate 20 /min Pfo 4 [facility] 03-19-2024 09:37-0400 SaO2% (BldA) [Mass fraction] 93 % Pfo 4 [facility] 03-19-2024 09:37-0400 Systolic blood pressure 180 mm[Hg] Pfo 4 [facility] 03-12-2024 09:30-0400 Body height 165.1 cm Pfo 7 [facility] 03-12-2024 09:30-0400 Body mass index (BMI) [Ratio] 45.83 kg/m2 Pfo 7 [facility] 03-12-2024 09:30-0400 Body temperature 97.5 [degF] Pfo 7 [facility] 03-12-2024 09:30-0400 Body weight 124.92 kg Pfo 7 [facility] 03-12-2024 09:30-0400 Diastolic blood pressure 55 mm[Hg] Pfo 7 [facility] 03-12-2024 09:30-0400 Heart rate 60 /min Pfo 7 [facility] 03-12-2024 09:30-0400 Respiratory rate 20 /min Pfo 7 [facility] 03-12-2024 09:30-0400 SaO2% (BldA) [Mass fraction] 95 % Pfo 7 [facility] 03-12-2024 09:30-0400 Systolic blood pressure 181 mm[Hg] Pfo 7 [facility] 02-25-2024 14:54-0400 Body height 165.1 cm Fernie Furlong DO Work Phone: [facility] 02-25-2024 14:54-0400 Body mass index (BMI) [Ratio] 44.56 kg/m2 Fernie Furlong DO Work Phone: [facility] 02-25-2024 14:54-0400 Body temperature 98.29 [degF] Fernie Furlong DO Work Phone: [facility] 02-25-2024 14:54-0400 Body weight 121.47 kg Fernie Furlong DO Work Phone: [facility] 02-25-2024 14:54-0400 Diastolic blood pressure 70 mm[Hg] Fernie Furlong DO Work Phone: [facility] 02-25-2024 14:54-0400 Heart rate 60 /min Fernie Furlong DO Work Phone: [facility] 02-25-2024 14:54-0400 SaO2% (BldA) [Mass fraction] 95 % Fernie Furlong DO Work Phone: [facility] 02-25-2024 14:54-0400 Systolic blood pressure 140 mm[Hg] Fernie Furlong DO Work Phone: [facility] 02-13-2024 09:26-0400 Body height 165.1 cm Pfo 6 [facility] 02-13-2024 09:26-0400 Body mass index (BMI) [Ratio] 44.6 kg/m2 Pfo 6 [facility] 02-13-2024 09:26-0400 Body temperature 97.7 [degF] Pfo 6 [facility] 02-13-2024 09:26-0400 Body weight 121.56 kg Pfo 6 [facility] 02-13-2024 09:26-0400 Diastolic blood pressure 60 mm[Hg] Pfo 6 [facility] 02-13-2024 09:26-0400 Heart rate 60 /min Pfo 6 [facility] 02-13-2024 09:26-0400 Respiratory rate 18 /min Pfo 6 [facility] 02-13-2024 09:26-0400 SaO2% (BldA) [Mass fraction] 94 % Pfo 6 [facility] 02-13-2024 09:26-0400 Systolic blood pressure 162 mm[Hg] Pfo 6 [facility] 02-06-2024 09:30-0400 Body height 165.1 cm Pfo 6 [facility] 02-06-2024 09:30-0400 Body mass index (BMI) [Ratio] 44.6 kg/m2 Pfo 6 [facility] 02-06-2024 09:30-0400 Body temperature 97.9 [degF] Pfo 6 [facility] 02-06-2024 09:30-0400 Body weight 121.56 kg Pfo 6 [facility] 02-06-2024 09:30-0400 Diastolic blood pressure 75 mm[Hg] Pfo 6 [facility] 02-06-2024 09:30-0400 Heart rate 60 /min Pfo 6 [facility] 02-06-2024 09:30-0400 Respiratory rate 188 /min Pfo 6 [facility] 02-06-2024 09:30-0400 SaO2% (BldA) [Mass fraction] 98 % Pfo 6 [facility] 02-06-2024 09:30-0400 Systolic blood pressure 176 mm[Hg] Pfo 6 [facility] 01-30-2024 09:25-0400 Body height 165.1 cm Pfo 6 [facility] 01-30-2024 09:25-0400 Body mass index (BMI) [Ratio] 44.93 kg/m2 Pfo 6 [facility] 01-30-2024 09:25-0400 Body temperature 97.7 [degF] Pfo 6 [facility] 01-30-2024 09:25-0400 Body weight 122.47 kg Pfo 6 [facility] 01-30-2024 09:25-0400 Diastolic blood pressure 60 mm[Hg] Pfo 6 [facility] 01-30-2024 09:25-0400 Heart rate 56 /min Pfo 6 [facility] 01-30-2024 09:25-0400 Respiratory rate 18 /min Pfo 6 [facility] 01-30-2024 09:25-0400 SaO2% (BldA) [Mass fraction] 93 % Pfo 6 [facility] 01-30-2024 09:25-0400 Systolic blood pressure 168 mm[Hg] Pfo 6 [facility] 01-23-2024 09:33-0400 Body height 165.1 cm Pfo 6 [facility] 01-23-2024 09:33-0400 Body mass index (BMI) [Ratio] 45.93 kg/m2 Pfo 6 [facility] 01-23-2024 09:33-0400 Body temperature 97.39 [degF] Pfo 6 [facility] 01-23-2024 09:33-0400 Body weight 125.19 kg Pfo 6 [facility] 01-23-2024 09:33-0400 Diastolic blood pressure 73 mm[Hg] Pfo 6 [facility] 01-23-2024 09:33-0400 Heart rate 66 /min Pfo 6 [facility] 01-23-2024 09:33-0400 Respiratory rate 18 /min Pfo 6 [facility] 01-23-2024 09:33-0400 SaO2% (BldA) [Mass fraction] 98 % Pfo 6 [facility] 01-23-2024 09:33-0400 Systolic blood pressure 180 mm[Hg] Pfo 6 [facility] 01-16-2024 09:24-0500 Body height 165.1 cm Pfo 6 [facility] 01-16-2024 09:24-0500 Body mass index (BMI) [Ratio] 46.1 kg/m2 Pfo 6 [facility] 01-16-2024 09:24-0500 Body temperature 98.01 [degF] Pfo 6 [facility] 01-16-2024 09:24-0500 Body weight 125.65 kg Pfo 6 [facility] 01-16-2024 09:24-0500 Diastolic blood pressure 80 mm[Hg] Pfo 6 [facility] 01-16-2024 09:24-0500 Heart rate 71 /min Pfo 6 [facility] 01-16-2024 09:24-0500 Respiratory rate 18 /min Pfo 6 [facility] 01-16-2024 09:24-0500 SaO2% (BldA) [Mass fraction] 97 % Pfo 6 [facility] 01-16-2024 09:24-0500 Systolic blood pressure 180 mm[Hg] Pfo 6 [facility] 01-09-2024 09:36-0500 Body height 165.1 cm Pfo 3 [facility] 01-09-2024 09:36-0500 Body mass index (BMI) [Ratio] 46.1 kg/m2 Pfo 3 [facility] 01-09-2024 09:36-0500 Body temperature 97.9 [degF] Pfo 3 [facility] 01-09-2024 09:36-0500 Body weight 125.65 kg Pfo 3 [facility] 01-09-2024 09:36-0500 Diastolic blood pressure 75 mm[Hg] Pfo 3 [facility] 01-09-2024 09:36-0500 Heart rate 70 /min Pfo 3 [facility] 01-09-2024 09:36-0500 Respiratory rate 18 /min Pfo 3 [facility] 01-09-2024 09:36-0500 SaO2% (BldA) [Mass fraction] 97 % Pfo 3 [facility] 01-09-2024 09:36-0500 Systolic blood pressure 180 mm[Hg] Pfo 3 [facility] 01-02-2024 09:37-0500 Body temperature 98.01 [degF] Pfo 4 [facility] 01-02-2024 09:37-0500 Diastolic blood pressure 72 mm[Hg] Pfo 4 [facility] 01-02-2024 09:37-0500 Heart rate 62 /min Pfo 4 [facility] 01-02-2024 09:37-0500 Respiratory rate 18 /min Pfo 4 [facility] 01-02-2024 09:37-0500 SaO2% (BldA) [Mass fraction] 95 % Pfo 4 [facility] 01-02-2024 09:37-0500 Systolic blood pressure 184 mm[Hg] Pfo 4 [facility] 12-26-2023 09:37-0500 Body height 165.1 cm Pfo 4 [facility] 12-26-2023 09:37-0500 Body mass index (BMI) [Ratio] 46.1 kg/m2 Pfo 4 [facility] 12-26-2023 09:37-0500 Body temperature 97.7 [degF] Pfo 4 [facility] 12-26-2023 09:37-0500 Body weight 125.65 kg Pfo 4 [facility] 12-26-2023 09:37-0500 Diastolic blood pressure 64 mm[Hg] Pfo 4 [facility] 12-26-2023 09:37-0500 Heart rate 67 /min Pfo 4 [facility] 12-26-2023 09:37-0500 Respiratory rate 18 /min Pfo 4 [facility] 12-26-2023 09:37-0500 SaO2% (BldA) [Mass fraction] 96 % Pfo 4 [facility] 12-26-2023 09:37-0500 Systolic blood pressure 177 mm[Hg] Pfo 4 [facility] 12-19-2023 09:30-0500 Body height 165.1 cm Pfo 2 [facility] 12-19-2023 09:30-0500 Body mass index (BMI) [Ratio] 46.13 kg/m2 Pfo 2 [facility] 12-19-2023 09:30-0500 Body temperature 97.39 [degF] Pfo 2 [facility] 12-19-2023 09:30-0500 Body weight 125.74 kg Pfo 2 [facility] 12-19-2023 09:30-0500 Diastolic blood pressure 67 mm[Hg] Pfo 2 [facility] 12-19-2023 09:30-0500 Heart rate 67 /min Pfo 2 [facility] 12-19-2023 09:30-0500 Respiratory rate 18 /min Pfo 2 [facility] 12-19-2023 09:30-0500 SaO2% (BldA) [Mass fraction] 97 % Pfo 2 [facility] 12-19-2023 09:30-0500 Systolic blood pressure 196 mm[Hg] Pfo 2 [facility] 12-12-2023 09:25-0500 Body height 165.1 cm Pfo 2 [facility] 12-12-2023 09:25-0500 Body mass index (BMI) [Ratio] 45.43 kg/m2 Pfo 2 [facility] 12-12-2023 09:25-0500 Body temperature 97.5 [degF] Pfo 2 [facility] 12-12-2023 09:25-0500 Body weight 123.83 kg Pfo 2 [facility] 12-12-2023 09:25-0500 Diastolic blood pressure 71 mm[Hg] Pfo 2 [facility] 12-12-2023 09:25-0500 Heart rate 70 /min Pfo 2 [facility] 12-12-2023 09:25-0500 Respiratory rate 18 /min Pfo 2 [facility] 12-12-2023 09:25-0500 SaO2% (BldA) [Mass fraction] 98 % Pfo 2 [facility] 12-12-2023 09:25-0500 Systolic blood pressure 166 mm[Hg] Pfo 2 [facility] 12-05-2023 09:15-0500 Body height 165.1 cm Pfo 2 [facility] 12-05-2023 09:15-0500 Body mass index (BMI) [Ratio] 44.76 kg/m2 Pfo 2 [facility] 12-05-2023 09:15-0500 Body temperature 97.39 [degF] Pfo 2 [facility] 12-05-2023 09:15-0500 Body weight 122.02 kg Pfo 2 [facility] 12-05-2023 09:15-0500 Diastolic blood pressure 70 mm[Hg] Pfo 2 [facility] 12-05-2023 09:15-0500 Heart rate 71 /min Pfo 2 [facility] 12-05-2023 09:15-0500 Respiratory rate 18 /min Pfo 2 [facility] 12-05-2023 09:15-0500 SaO2% (BldA) [Mass fraction] 96 % Pfo 2 [facility] 12-05-2023 09:15-0500 Systolic blood pressure 157 mm[Hg] Pfo 2 [facility] 11-28-2023 09:17-0500 Body height 165.1 cm Pfo 1 [facility] 11-28-2023 09:17-0500 Body mass index (BMI) [Ratio] 44.93 kg/m2 Pfo 1 [facility] 11-28-2023 09:17-0500 Body temperature 97.2 [degF] Pfo 1 [facility] 11-28-2023 09:17-0500 Body weight 122.47 kg Pfo 1 [facility] 11-28-2023 09:17-0500 Diastolic blood pressure 56 mm[Hg] Pfo 1 [facility] 11-28-2023 09:17-0500 Heart rate 79 /min Pfo 1 [facility] 11-28-2023 09:17-0500 Respiratory rate 18 /min Pfo 1 [facility] 11-28-2023 09:17-0500 SaO2% (BldA) [Mass fraction] 99 % Pfo 1 [facility] 11-28-2023 09:17-0500 Systolic blood pressure 156 mm[Hg] Pfo 1 [facility] 11-26-2023 13:40-0500 Body height 165.1 cm [employer] Work Phone: [facility] 11-26-2023 13:40-0500 Body mass index (BMI) [Ratio] 44.45 kg/m2 [employer] Work Phone: [facility] 11-26-2023 13:40-0500 Body temperature 97.3 [degF] Fernie Furlong DO Work Phone: [facility] [employer] 11-26-2023 13:40-0500 Body weight 121.16 kg Fernie Furlong DO Work Phone: [facility] [employer] 11-26-2023 13:40-0500 Diastolic blood pressure 62 mm[Hg] Fernie Furlong DO Work Phone: [facility] [employer] 11-26-2023 13:40-0500 Heart rate 62 /min Fernie Tracylong DO Work Phone: [facility] [employer] 11-26-2023 13:40-0500 SaO2% (BldA) [Mass fraction] 96 % Fernie Tracylong DO Work Phone: [facility] [employer] 11-26-2023 13:40-0500 Systolic blood pressure 130 mm[Hg] Fernie Tracylong DO Work Phone: [facility] [employer] [facility] 11-21-2023 10:01-0500 Body height 165.1 cm Pfo 1 [facility] [employer] [facility] 11-21-2023 10:01-0500 Body mass index (BMI) [Ratio] 44.6 kg/m2 Pfo 1 [facility] [employer] [facility] 11-21-2023 10:01-0500 Body temperature 97.81 [degF] Pfo 1 [facility] [employer] [facility] 11-21-2023 10:01-0500 Body weight 121.56 kg Pfo 1 [facility] [employer] [facility] 11-21-2023 10:01-0500 Diastolic blood pressure 52 mm[Hg] Pfo 1 [facility] [employer] [facility] 11-21-2023 10:01-0500 Heart rate 62 /min Pfo 1 [facility] [employer] [facility] 11-21-2023 10:01-0500 Respiratory rate 18 /min Pfo 1 [facility] [employer] [facility] 11-21-2023 10:01-0500 SaO2% (BldA) [Mass fraction] 94 % Pfo 1 [facility] 11-21-2023 10:01-0500 Systolic blood pressure 122 mm[Hg] Pfo 1 [employer] [facility] 11-16-2023 09:00-0500 Body temperature 96.6 [degF] DO Fernie [employer] Work Phone: [facility] 11-16-2023 09:00-0500 Diastolic blood pressure 74 mm[Hg] DO Fernie [employer] Work Phone: [facility] 11-16-2023 09:00-0500 Heart rate 71 /min DO Fernie [employer] Work Phone: [facility] 11-16-2023 09:00-0500 Respiratory rate 18 /min DO [employer] Work Phone: [facility] 11-16-2023 09:00-0500 SaO2% (BldA) [Mass fraction] 97 % DO [employer] Work Phone: [facility] 11-16-2023 09:00-0500 Systolic blood pressure 148 mm[Hg] DO Fernie [employer] Work Phone: [facility] 08-23-2023 12:20-0400 Body height 165.1 cm Gia Tammy Other [employer] Other 08-23-2023 12:20-0400 Body mass index (BMI) [Ratio] 44.09 kg/m2 Gia Tam[employer] Other [employer] Other 08-23-2023 12:20-0400 Body temperature 96.6 [degF] Gia Tammy Other [employer] Other 08-23-2023 12:20-0400 Body weight 120.2 kg Gia Tammy Other [employer] Other 08-23-2023 12:20-0400 Diastolic blood pressure 86 mm[Hg] Gia Tammy Other [employer] Other 08-23-2023 12:20-0400 Respiratory rate 18 /min Gia Tammy Other [employer] Other 08-23-2023 12:20-0400 SaO2% (BldA) [Mass fraction] 96 % Gia Tammy Other [employer] Other 08-23-2023 12:20-0400 Systolic blood pressure 138 mm[Hg] Gia Tammy Other [employer] Other 01-25-2023 12:20-0400 Body height 165.1 cm Gia [employer] Other [employer] Other 01-25-2023 12:20-0400 Body mass index (BMI) [Ratio] 45.76 kg/m2 [employer] Other [employer] Other 01-25-2023 12:20-0400 Body temperature 96.7 [degF] Gia [employer] Other [employer] Other 01-25-2023 12:20-0400 Body weight 124.74 kg Gia Tammy Other [employer] Other 01-25-2023 12:20-0400 Diastolic blood pressure 80 mm[Hg] Gia Tam[employer] Other [employer] Other 01-25-2023 12:20-0400 Respiratory rate 18 /min Gia [employer] Other 01-25-2023 12:20-0400 SaO2% (BldA) [Mass fraction] 96 % Gia [employer] Other 01-25-2023 12:20-0400 Systolic blood pressure 139 mm[Hg] Gia [employer] Other 07-20-2022 13:00-0400 Body height 165.1 cm Gia Tam[employer] Other 07-20-2022 13:00-0400 Body temperature 96 [degF] Gia Tam[employer] Other [employer] Other 07-20-2022 13:00-0400 Diastolic blood pressure 71 mm[Hg] Gia Tam[employer] Other [employer] Other 07-20-2022 13:00-0400 Respiratory rate 18 /min Gia [employer] Other [employer] Other 07-20-2022 13:00-0400 SaO2% (BldA) [Mass fraction] 96 % Gia [employer] Other 07-20-2022 13:00-0400 Systolic blood pressure 134 mm[Hg] Gia [employer] Other 04-06-2022 12:00-0400 Body height 165.1 cm Gia [employer] Other 04-06-2022 12:00-0400 Body mass index (BMI) [Ratio] 46.32 kg/m2 [employer] Other 04-06-2022 12:00-0400 Body temperature 98 [degF] [employer]ia [employer] Other 04-06-2022 12:00-0400 Body weight 126.28 kg Gia [employer] Other 04-06-2022 12:00-0400 Diastolic blood pressure 70 mm[Hg] [employer]ia [employer] Other 04-06-2022 12:00-0400 Respiratory rate 20 /min Gia Tam[employer] Other [employer] Other 04-06-2022 12:00-0400 SaO2% (BldA) [Mass fraction] 93 % Gia Tam[employer] Other [employer] Other 04-06-2022 12:00-0400 Systolic blood pressure 122 mm[Hg] Gia [employer] Other 12-27-2021 16:20-0500 Body height 165.1 cm Gia [employer] Other 12-27-2021 16:20-0500 Body mass index (BMI) [Ratio] 46.29 kg/m2 Gia [employer] Other 12-27-2021 16:20-0500 Body temperature 96.2 [degF] Gia [employer] Other 12-27-2021 16:20-0500 Body weight 126.19 kg Gia [employer] Other 12-27-2021 16:20-0500 Diastolic blood pressure 78 mm[Hg] Gia [employer] Other 12-27-2021 16:20-0500 Respiratory rate 20 /min Gia [employer] Other 12-27-2021 16:20-0500 SaO2% (BldA) [Mass fraction] 95 % [employer]ia [employer] Other 12-27-2021 16:20-0500 Systolic blood pressure 161 mm[Hg] [employer] Other Encounters Encounter Date Encounter Type Care Provider Facility Start: 12-31-2024 End: 12-31-2024 Orders Only Fernie Clark DO Work Phone: [facility] Comment on above: Lumbar stenosis with neurogenic claudication Start: 12-29-2024 End: 12-29-2024 Refill Livia Du CMA [facility] Comment on above: Lumbar stenosis with neurogenic claudication Start: 12-26-2024 End: 12-27-2024 ambulatory Fernie Clark DO Work Phone: [facility] Comment on above: Acute cystitis with hematuria (Primary Dx); Essential hypertension; Acute right-sided low back pain without sciatica; Nausea; Anxiety Start: 12-19-2024 End: 12-27-2024 Refill Fernie Clark DO Work Phone: [facility] Comment on above: Lumbar stenosis with neurogenic claudication Constipation, unspec ified constipation type (Primary Dx); Essential hypertension; Dysuria; History of UTI; History of sepsis; Chronic low back pain without sciatica, unspecified back pain laterality Start: 12-18-2024 End: 12-18-2024 Telephone encounter Bonny Bowles [facility] Comment on above: EMG order Start: 12-10-2024 End: 12-10-2024 Orders Only Fernie Clark DO Work Phone: [facility] - [facility] Start: 12-02-2024 End: 12-02-2024 Orders Only Fernie Clark DO Work Phone: [facility] - [facility] Comment on above: Lumbar stenosis with neurogenic claudication (Primary Dx) Start: 12-01-2024 End: 12-01-2024 Telephone encounter [facility] Comment on above: orders for patient t o be sent out to hospital for evaluation Start: 11-24-2024 End: 11-24-2024 Telephone encounter Fernie Clark DO Work Phone: [facility] - [facility] Start: 11-20-2024 End: 11-20-2024 ambulatory Fernie Clark DO Work Phone: [facility] Work Phone: Start: 11-20-2024 End: 11-20-2024 Departed Referred Fernie Barkleyng DO Work Phone: [facility] Start: 11-18-2024 End: 11-18-2024 Orders Only [facility] Comment on above: Hypomagnesemia (Prim fara Dx) Start: 11-17-2024 End: 11-19-2024 Telephone encounter Fernie Clark DO Work Phone: [facility] Start: 11-17-2024 End: 11-17-2024 ambulatory FERNIE CLARK [facility] Start: 11-10-2024 End: 11-10-2024 ambulatory GIA MUNOZ [facility] Start: 11-04-2024 End: 11-04-2024 ambulatory Pfo Infusion Bed 1 Elida hu [facility] Medical Oncology Comment on above: Hypomagnesemia (Prim fara Dx) Start: 11-03-2024 End: 11-03-2024 Refill Fernie Clark DO Work Phone: [facility] - [facility] Start: 11-03-2024 End: 11-03-2024 Orders Only Fernie Jamarcus Molinaangel luis DO Work Phone: [facility] - [facility] Start: 11-03-2024 End: 11-03-2024 ambulatory Christian Curtis MD Facility:[facility] Start: 10-27-2024 End: 10-27-2024 [facility] Start: 10-20-2024 End: 10-20-2024 Documentation procedure Clara prince [facility] Medical Oncology Start: 10-20-2024 End: 10-20-2024 ambulatory [facility] Start: 10-13-2024 End: 10-13-2024 [facility] Start: 10-07-2024 End: 10-14-2024 Refill Fernie Clark DO Work Phone: [facility] Start: 10-07-2024 End: 10-07-2024 ambulatory FERNIE Jamarcus [facility] Comment on above: Hypomagnesemia (Prim fara Dx) Start: 10-06-2024 End: 10-06-2024 ambulatory [facility] Start: 10-01-2024 End: 10-01-2024 ambulatory FERNIE G [facility] Comment on above: Hypomagnesemia (Prim fara Dx) Start: 09-29-2024 End: 09-29-2024 ambulatory [facility] Start: 09-27-2024 End: 09-27-2024 Orders Only Fernierajinder Molinalong DO Work Phone: [facility] - [facility] Start: 09-26-2024 End: 09-26-2024 Evaluation and management of inpatient DANIEL Merritt [facility] Start: 09-22-2024 End: 09-22-2024 [facility] Start: 09-15-2024 End: 09-15-2024 [facility] Start: 09-11-2024 End: 09-11-2024 Refill Fernie Clark DO Work Phone: [facility] - [facility] Start: 09-10-2024 End: 09-10-2024 Telephone encounter Nina Mcgee [facility] Neu[facility] Comment on above: EMG NEW PATIENT Start: 09-10-2024 End: 09-10-2024 ambulatory FERNIE [facility] Comment on above: Hypomagnesemia (Prim fara Dx) Start: 09-08-2024 End: 09-08-2024 [facility] Start: 09-04-2024 End: 09-04-2024 Orders Only Fernie Clark DO Work [facility] Comment on above: Paresthesia of right lower extremity (Primary Dx); Ross's esophagus with dysplasia Start: 09-01-2024 End: 09-01-2024 Documentation procedure Americo Lira [facility] - Medical Oncology Start: 09-01-2024 End: 09-01-2024 [facility] Start: 08-27-2024 End: 08-27-2024 ambulatory FERNIE G [facility] Comment on above: Hypomagnesemia (Prim fara Dx) Start: 08-25-2024 End: 08-25-2024 [facility] Start: 08-22-2024 End: 08-25-2024 Refill Fernie Barkleyng DO Work Phone: [facility] Internal [facility] - Family Medicine Comment on above: 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 ([facility]) (Primary Dx); Morbid obesity ([facility]) Start: 08-20-2024 End: 08-20-2024 [facility] above: Hypomagnesemia (Prim fara Dx) Start: 08-18-2024 End: 08-18-2024 [facility] Start: 08-13-2024 End: 08-13-2024 [facility] Comment on above: Hypomagnesemia (Prim fara Dx) Start: 08-11-2024 End: 08-11-2024 [facility] Start: 08-06-2024 End: 08-06-2024 [facility] Comment on above: Hypomagnesemia (Prim fara Dx) Start: 08-05-2024 End: 08-05-2024 Orders Only Fernie Clark DO Work Phone: [facility] - Family Medicine Start: 08-04-2024 End: 08-04-2024 [facility] Start: 07-30-2024 End: 07-30-2024 [facility] Comment on above: Hypomagnesemia (Prim fara Dx) Start: 07-28-2024 End: 07-28-2024 [facility] Start: 07-28-2024 End: 07-28-2024 ambulatory Christian Curtis MD Facility:[facility] Start: 07-23-2024 End: 07-23-2024 [facility] Comment on above: Hypomagnesemia (Prim fara Dx) Start: 07-21-2024 End: 07-21-2024 [facility] Start: 07-17-2024 End: 07-17-2024 Refill Fernie Clark DO Work Phone: [facility] Internal Medicine - Family Medicine Start: 07-16-2024 End: 07-16-2024 [facility] Comment on above: Hypomagnesemia (Prim fara Dx) Start: 07-15-2024 End: 07-15-2024 [facility] Start: 07-09-2024 End: 07-09-2024 [facility] Comment on above: Hypomagnesemia (Prim fara Dx) Start: 07-07-2024 End: 07-07-2024 [facility] Start: 07-02-2024 End: 07-02-2024 [facility] Comment on above: Hypomagnesemia (Prim fara Dx) Start: 06-30-2024 End: 06-30-2024 [facility] Start: 06-27-2024 End: 06-27-2024 Refill Fernie Clark DO Work Phone: [facility] Internal Medicine - Family Medicine Start: 06-25-2024 End: 06-25-2024 [facility] Comment on above: Hypomagnesemia (Prim fara Dx) Start: 06-23-2024 End: 06-23-2024 [facility] Start: 06-18-2024 End: 06-18-2024 [facility] Comment on above: Hypomagnesemia (Prim fara Dx) Start: 06-16-2024 End: 06-16-2024 [facility] Start: 06-11-2024 End: 06-11-2024 [facility] Comment on above: Hypomagnesemia (Prim fara Dx) Start: 06-09-2024 End: 06-09-2024 [facility] Start: 06-04-2024 End: 06-04-2024 ambulatory [facility] Start: 06-02-2024 End: 06-02-2024 [facility] Start: 05-30-2024 End: 05-30-2024 [facility] Start: 05-29-2024 End: 05-29-2024 Telephone encounter Fernie Clark DO Work Phone: [facility] Internal [facility] - Family Medicine Start: 05-28-2024 End: 05-28-2024 ambulatory [facility] Comment on above: Hypomagnesemia (Prim fara Dx) Start: 05-27-2024 End: 05-27-2024 [facility] Start: 05-27-2024 End: 05-27-2024 Office outpatient visit 25 minutes Fernie Clark DO Work Phone: [facility] Medicine - Family Medicine Comment on above: 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 ([facility]) (Primary Dx); Dysuria; Acute rhinitis; Morbid obesity ([facility]); Incontinence of feces with fecal urgency Start: 05-27-2024 End: 05-27-2024 [facility] Start: 05-26-2024 End: 05-26-2024 ambulatory [facility] Start: 05-21-2024 End: 05-21-2024 ambulatory [facility] Comment on above: Hypomagnesemia (Prim fara Dx) Start: 05-19-2024 End: 05-19-2024 ambulatory [facility] Start: 05-14-2024 End: 05-14-2024 ambulatory [facility] Comment on above: Hypomagnesemia (Prim fara Dx) Start: 05-12-2024 End: 05-12-2024 ambulatory [facility] Start: 05-07-2024 End: 05-07-2024 ambulatory [facility] Comment on above: Hypomagnesemia (Prim fara Dx) Start: 05-05-2024 End: 05-05-2024 [facility] Start: 05-01-2024 End: 05-01-2024 ambulatory [facility] Work Phone: Start: 05-01-2024 End: 05-01-2024 Patient encounter procedure [facility] Nephrology Tod Work Phone: Start: 04-30-2024 End: 04-30-2024 ambulatory [facility] Comment on above: Hypomagnesemia (Prim fara Dx) Start: 04-29-2024 End: 04-29-2024 Refill Fernierajinder Clark DO Work Phone: [facility] Internal Medicine - Family Medicine Start: 04-29-2024 End: 04-29-2024 Refill Elba Bae [facility] Internal Medicine - Family Medicine Start: 04-28-2024 Non-patient / Non-visit [facility] Nephrology Work Phone: Start: 04-28-2024 End: 04-28-2024 [facility] Start: 04-23-2024 End: 04-23-2024 ambulatory [facility] Comment on above: Hypomagnesemia (Prim fara Dx) Start: 04-21-2024 End: 04-21-2024 ambulatory [facility] Start: 04-16-2024 End: 04-16-2024 ambulatory [facility] Comment on above: Hypomagnesemia (Prim fara Dx) Start: 04-14-2024 End: 04-14-2024 ambulatory [facility] Start: 04-09-2024 End: 04-09-2024 Refill Fernie G Furlong DO Work Phone: [facility] Internal Medicine - [facility] Start: 04-09-2024 End: 04-09-2024 ambulatory FERNIE G [facility] Comment on above: Hypomagnesemia (Prim fara Dx) Start: 04-08-2024 End: 04-08-2024 [facility] Start: 04-02-2024 End: 04-02-2024 [facility] Jamarcus [facility] Comment on above: Hypomagnesemia (Prim fara Dx) Start: 03-31-2024 End: 03-31-2024 Refill Fernie Clark DO Work Phone: [facility] Internal [facility] - [facility] Start: 03-31-2024 End: 03-31-2024 [facility] Start: 03-26-2024 End: 03-26-2024 [facility] Comment on above: Hypomagnesemia (Prim fara Dx) Start: 03-24-2024 End: 03-24-2024 [facility] Start: 03-19-2024 End: 03-19-2024 [facility] Comment on above: Hypomagnesemia (Prim fara Dx) Start: 03-17-2024 End: 03-17-2024 Refill Fernie Clark DO Work Phone: [facility] Internal [facility] - [facility] Start: 03-17-2024 End: 03-17-2024 [facility] Start: 03-12-2024 End: 03-12-2024 [facility] Comment on above: Hypomagnesemia (Prim fara Dx) Start: 03-10-2024 End: 03-10-2024 [facility] Start: 03-03-2024 End: 03-03-2024 [facility] Start: 02-25-2024 End: 02-25-2024 Office outpatient visit 15 minutes Fernie Clark DO Work Phone: [facility] Internal Medicine - Family Medicine Comment on above: Urinary incontinence , unspecified type (Primary Dx); Abnormality of gait and mobility Start: 02-25-2024 End: 02-25-2024 [facility] Start: 02-25-2024 End: 02-25-2024 Documentation procedure Millie Ireland [facility] Medical Oncology Start: 02-25-2024 End: 02-25-2024 [facility] Start: 02-20-2024 End: 02-20-2024 Documentation procedure Americo Lira [facility] Oncology Start: 02-19-2024 End: 02-19-2024 Documentation procedure Americo Lira [facility] Oncology Start: 02-18-2024 End: 02-18-2024 [facility] Start: 02-13-2024 End: 02-13-2024 [facility] Comment on above: Hypomagnesemia (Prim fara Dx) Start: 02-11-2024 End: 02-11-2024 [facility] Start: 02-06-2024 End: 02-06-2024 [facility] Comment on above: Hypomagnesemia (Prim fara Dx) Start: 02-04-2024 End: 02-04-2024 [facility] Start: 02-04-2024 End: 02-04-2024 ambulatory Christian Curtis MD Facility: [facility] Start: 01-30-2024 End: 01-30-2024 [facility] Comment on above: Hypomagnesemia (Prim fara Dx) Start: 01-28-2024 End: 01-28-2024 [facility] Start: 01-23-2024 End: 01-23-2024 ambulatory [facility] Comment on above: Hypomagnesemia (Prim fara Dx) Start: 01-21-2024 End: 01-21-2024 [facility] Start: 01-21-2024 End: 01-21-2024 ambulatory Christian Curtis MD Facility:[facility] Start: 01-17-2024 Orders Only Fernie noguera DO Work Phone: [facility] - [facility] Comment on above: Hypertension in ginna e 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 ([facility]) (Primary Dx) Start: 01-16-2024 End: 01-16-2024 [facility] Comment on above: Hypomagnesemia (Prim fara Dx) Start: 01-14-2024 End: 01-14-2024 [facility] Start: 01-09-2024 End: 01-09-2024 ambulatory [facility] Comment on above: Hypomagnesemia (Prim fara Dx) Start: 01-08-2024 End: 01-08-2024 Patient encounter procedure Fernie Clark DO Work Phone: [facility] Comment on above: Medicare annual well ness visit, subsequent (Primary Dx); Screening for depression Start: 01-08-2024 End: 01-08-2024 [facility] Start: 01-07-2024 End: 01-07-2024 [facility] Start: 01-02-2024 End: 01-11-2024 [facility] Comment on above: Hypomagnesemia (Prim fara Dx) Start: 12-31-2023 End: 12-31-2023 [facility] Start: 12-26-2023 End: 12-26-2023 ambulatory FERNIE G [facility] Comment on above: Hypomagnesemia (Prim fara Dx) Start: 12-24-2023 End: 12-24-2023 [facility] Start: 12-19-2023 End: 12-19-2023 [facility] Jamarcus [facility] Comment on above: Hypomagnesemia (Prim fara Dx) Start: 12-17-2023 End: 12-17-2023 [facility] Start: 12-12-2023 End: 12-12-2023 ambulatory FERNIE Ricketts [facility] Comment on above: Hypomagnesemia (Prim fara Dx) Start: 12-11-2023 Refill Theresa Dhaval JEANNE [facility] Start: 12-10-2023 End: 12-10-2023 [facility] Start: 12-07-2023 Orders Only Fernie Barkley ng DO Work Phone: [facility] Start: 12-05-2023 Telephone encounter [facility] Start: 12-05-2023 End: 12-05-2023 [facility] Comment on above: Hypomagnesemia (Prim fara Dx) Start: 12-04-2023 Refill Fernie Barkley ng DO [facility] Start: 12-03-2023 End: 12-03-2023 [facility] Start: 11-28-2023 End: 11-28-2023 [facility] Comment on above: Hypomagnesemia (Prim fara Dx) Start: 11-26-2023 End: 11-26-2023 [facility] Start: 11-26-2023 End: 11-26-2023 Office outpatient visit 25 minutes Fernie Clark DO Work Phone: [facility] Comment on above: Hypertension 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 [facility] (Primary Dx); Mixed hyperlipidemia; Hypomagnesemia; 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; Morbid obesity ([facility]); Chronic obstructive pulmonary disease, unspecified COPD type ([facility]) Start: 11-26-2023 End: 11-26-2023 ambulatory [facility] Start: 11-26-2023 End: 11-26-2023 ambulatory [facility] Start: 11-21-2023 End: 11-21-2023 [facility] Comment on above: Hypomagnesemia (Prim fara Dx) Mixed hyperlipidemia (Primary Dx); Type 2 diabetes mellitus with stage 3b chronic kidney disease, with long-term current use of insulin ([facility]); Essential hypertension Start: 11-20-2023 Chart abstracting Felicity Merritt [facility] Start: 11-19-2023 End: 11-19-2023 ambulatory [facility] Comment on above: Hypomagnesemia (Prim fara Dx) Start: 11-16-2023 End: 11-16-2023 ambulatory DO Fernie Furlong Work Phone: [facility] Work Phone: Start: 11-16-2023 End: 11-16-2023 Discharged Recurring DO Fernie Furlong Work Phone: [facility] - O/P Work Phone: Start: 11-12-2023 Refill Fernierajinder Barkley ng DO Work Phone: [facility] Start: 08-23-2023 End: 08-23-2023 ambulatory Gia Tammy Other [employer] Other Start: 10-12-2023 Office outpatient vi sit 25 minutes Gia Tammy [facility] Start: 04-26-[address] FERNIE CLARK Fac ility:[facility] Start: 01-25-2023 End: 01-26-[address] LUISA STERN . [employer] Other Start: 01-25-2023 Office outpatient vi sit 25 minutes Gia Tammy [facility] Start: 01-15-2023 End: 01-16-2023 ambulatory GIA TAMMY Facility:[facility] Start: 12-06-2022 End: 12-06-2022 ambulatory AB [facility] Start: 11-09-2022 End: 11-10-[address] FERNIE CLRAK Facility:[facility] Start: 10-26-2022 End: 10-27-[address] LUISA STERN . Facility:[facility] Start: 08-02-2022 End: 08-03-[address] LUISA STERN . Facility:[facility] Start: 07-20-2022 End: 07-20-2022 ambulatory Gia Tammy Other [employer] Other Start: 07-20-2022 Office outpatient vi sit 25 minutes Gia Tammy [facility] Start: 07-12-2022 End: 07-13-2022 ambulatory GIA TAMMY Facility:[facility] Start: 05-03-2022 End: 05-03-2022 ambulatory Gia Tammy Other [employer] Other Start: 05-03-2022 Telephone encounter Gia Tammy [facility] Start: 04-25-2022 End: 04-26-[address] LUISA STERN . Facility:[facility] Start: 04-06-2022 End: 04-06-2022 ambulatory Gia Tammy Other [employer] Other Start: 04-06-2022 Office outpatient vi sit 25 minutes Gia Tammy [facility] [place] Start: 03-30-2022 End: 03-31-2022 ambulatory GIA TAMMY Facility:[facility] Start: 03-30-2022 End: 03-31-[address] LUISA STERN . Facility: Start: 12-27-2021 End: 12-27-2021 ambulatory Gia Tammy Other [employer] Other Start: 12-27-2021 Office outpatient vi sit 15 minutes Gia Tammy [facility] Start: 11-28-2021 End: 11-28-2021 ambulatory Gia Tammy Other [employer] Other Start: 11-28-2021 Telephone encounter Gia Tammy [facility] Start: 11-24-2021 End: 11-24-2021 ambulatory Gia Tammy Other [employer] Other Start: 11-24-2021 Telephone encounter Gia Tammy [facility] Start: 03-30-2021 End: 03-31-2021 ambulatory EHAB A KERRI Facility:[facility] Procedures Date Procedure Procedure Detail Performing Clinician Start: 05-27-2024 Urnls dip stick/tabl et rgnt non-auto w/o micrscp Fernie Clark DO Work Phone: Start: 05-27-2024 Hemoglobin glycosyla jessica a1c Fernie Clark DO Work Phone: Start: 05-27-2024 Follow-up visit Follow-up FERNIE CLARK Start: 05-27-2024 Adult depression scr eening assessment Fernie Molinalong DO Work Phone: Start: 02-25-2024 Adult depression scr eening assessment Millie Hernandez RN Start: 01-08-2024 Adult depression scr eening assessment Fernie Molinalong DO Work Phone: Start: 11-26-2023 Adult depression scr eening assessment Fernie Barkleyng DO Work Phone: Start: 11-16-2023 MULTIPLE LABS Not In Sy stem Ref Prov Start: 10-18-2023 Adult depression scr eening assessment Fernie Clark DO Work Phone: Plan of Treatment Date Care Activity Detail Author Start: 09-30-2028 DTaP,Tdap and Td Vaccines (2 - Td or Tdap) DTaP,Tdap and Td Vaccines (2 - Td or Tdap) [facility] Start: 11-04-2025 Fall Risk Screening Fall Risk Screening [facility] Start: 10-07-2025 Fall Risk Screening Fall Risk Screening [facility] Start: 09-26-2025 Tobacco Screening Tobacco Screening [facility] Start: 08-27-2025 Adult BMI Screening Adult BMI Screening [facility] Start: 08-27-2025 Fall Risk Screening Fall Risk Screening [facility] Start: 08-20-2025 Adult BMI Screening Adult BMI Screening [facility] Start: 08-13-2025 Adult BMI Screening Adult BMI Screening [facility] Start: 08-06-2025 Tobacco Screening Tobacco Screening [facility] Start: 07-30-2025 Adult BMI Screening Adult BMI Screening [facility] Start: 07-30-2025 Tobacco Screening Tobacco Screening [facility] Start: 07-23-2025 Adult BMI Screening Adult BMI Screening [facility] Start: 07-16-2025 Adult BMI Screening Adult BMI Screening [facility] Start: 07-16-2025 Tobacco Screening Tobacco Screening [facility] Start: 07-09-2025 Adult BMI Screening Adult BMI Screening [facility] Start: 07-02-2025 Adult BMI Screening Adult BMI Screening [facility] Start: 06-25-2025 Adult BMI Screening Adult BMI Screening [facility] Start: 06-25-2025 Tobacco Screening Tobacco Screening [facility] Start: 06-18-2025 Adult BMI Screening Adult BMI Screening [facility] Start: 06-18-2025 Tobacco Screening Tobacco Screening [facility] Start: 06-11-2025 Adult BMI Screening Adult BMI Screening [facility] Start: 06-11-2025 Tobacco Screening Tobacco Screening [facility] Start: 06-04-2025 Adult BMI Screening Adult BMI Screening [facility] Start: 06-04-2025 Tobacco Screening [facility] Start: 05-28-2025 Adult BMI Screening Adult BMI Screening [facility] Start: 05-28-2025 Tobacco Screening Tobacco Screening [facility] Start: 05-27-2025 Adult BMI Screening Adult BMI Screening [facility] Start: 05-27-2025 Depression Screening Depression Screening [facility] Start: 05-27-2025 Tobacco Screening Tobacco Screening [facility] Start: 05-14-2025 Adult BMI Screening Adult BMI Screening [facility] Start: 05-14-2025 Tobacco Screening Tobacco Screening [facility] Start: 05-07-2025 Adult BMI Screening Adult BMI Screening [facility] Start: 05-07-2025 Fall Risk Screening Fall Risk Screening [facility] Start: 05-07-2025 Tobacco Screening Tobacco Screening [facility] Start: 04-30-2025 Adult BMI Screening Adult BMI Screening [facility] Start: 04-30-2025 Tobacco Screening Tobacco Screening [facility] Start: 04-23-2025 Adult BMI Screening Adult BMI Screening [facility] Start: 04-23-2025 Tobacco Screening Tobacco Screening [facility] Start: 04-09-2025 Adult BMI Screening Adult BMI Screening [facility] Start: 04-09-2025 Tobacco Screening Tobacco Screening [facility] Start: 04-02-2025 Adult BMI Screening Adult BMI Screening [facility] Start: 04-02-2025 Tobacco Screening Tobacco Screening [facility] Start: 03-26-2025 Adult BMI Screening Adult BMI Screening [facility] Start: 03-26-2025 Tobacco Screening Tobacco Screening [facility] Start: 03-19-2025 Adult BMI Screening Adult BMI Screening [facility] Start: 03-19-2025 Tobacco Screening Tobacco Screening [facility] Start: 03-12-2025 Adult BMI Screening Adult BMI Screening [facility] Start: 02-24-2025 Depression Screening Depression Screening [facility] Start: 02-24-2025 Fall Risk Screening Fall Risk Screening [facility] Start: 02-24-2025 Tobacco Screening Tobacco Screening [facility] Start: 02-12-2025 Adult BMI Screening Adult BMI Screening [facility] Start: 02-12-2025 Tobacco Screening Tobacco Screening [facility] Start: 02-05-2025 Adult BMI Screening Adult BMI Screening [facility] Start: 02-05-2025 Tobacco Screening Tobacco Screening [facility] Start: 01-29-2025 Adult BMI Screening Adult BMI Screening [facility] Start: 01-29-2025 Tobacco Screening Tobacco Screening [facility] Start: 01-22-2025 Adult BMI Screening Adult BMI Screening [facility] Start: 01-22-2025 Tobacco Screening Tobacco Screening [facility] Start: 01-15-2025 Adult BMI Screening Adult BMI Screening [facility] Start: 01-13-2025 End: 01-13-2025 Patient encounter procedure 01/13/2025 12:40 PM EST [facility] [address] [place] [address] [facility] Start: 01-09-2025 Adult BMI Screening Adult BMI Screening [facility] Start: 01-09-2025 Tobacco Screening Tobacco Screening [facility] Start: 01-08-2025 Depression Screening Depression Screening [facility] Start: 01-08-2025 Fall Risk Screening Fall Risk Screening [facility] Start: 01-08-2025 Medicare Annual Wellness Visit Medicare Annual Wellness Visi t [facility] Start: 01-02-2025 Tobacco Screening Tobacco Screening [facility] Start: 12-26-2024 Adult BMI Screening Adult BMI Screening [facility] Start: 12-26-2024 Tobacco Screening Tobacco Screening [facility] Start: 12-19-2024 Adult BMI Screening Adult BMI Screening [facility] Start: 12-19-2024 Tobacco Screening Tobacco Screening [facility] Start: 12-15-2024 End: 12-15-2024 Patient encounter procedure 12/15/2024 12:30 PM EST Procedure visit [facility] [address] [place] [address] Ton Urbano MD [address] [place] [address] [facility] Start: 12-12-2024 Adult BMI Screening Adult BMI Screening [facility] Start: 12-10-2024 End: 12-10-2024 ambulatory 12/10/2024 9:30 AM EST Infusion Elida Ireland [facility] [address] [place] [phone] Elida Ireland [facility] Start: 12-05-2024 Adult BMI Screening Adult BMI Screening [facility] Start: 12-05-2024 Tobacco Screening Tobacco Screening [facility] Start: 12-04-2024 End: 12-04-2024 Patient encounter procedure 12/04/2024 1:30 PM EST Off ice Visit [facility] [address] [place] [address] Fernie Clark DO [address], [place] [address] [facility] Start: 12-03-2024 End: 12-03-2024 ambulatory 12/03/2024 9:30 AM EST Infusion Elida Ireland [facility] [address] [place] [phone] Elida Merritt [facility] Start: 11-28-2024 Adult BMI Screening Adult BMI Screening [facility] Start: 11-28-2024 Tobacco Screening Tobacco Screening [facility] Start: 11-27-2024 End: 11-27-2024 Patient encounter procedure 11/27/2024 1:00 PM EST Off ice Visit [facility] [address] [place] [address] Fernie Clark DO [address], [place] [address] [facility] Start: 11-26-2024 Adult BMI Screening Adult BMI Screening [facility] Start: 11-26-2024 Depression Screening Depression Screening [facility] Start: 11-26-2024 Fall Risk Screening Fall Risk Screening [facility] Start: 11-26-2024 Tobacco Screening Tobacco Screening [facility] Start: 11-26-2024 End: 11-26-2024 ambulatory 11/26/2024 9:30 AM EST Infusion Elida Merritt [facility] [address] [place] [phone] Elida L [facility]ek[facility] Start: 11-21-2024 Adult BMI Screening Adult BMI Screening [facility] Start: 11-20-2024 Bacteria identified in Urine by Culture Urine Culture [facility] Start: 11-20-2024 Urine culture [facility] Start: 11-18-2024 End: 11-18-2024 ambulatory 11/18/2024 11:30 AM EST Infusion Elida L [facility] [address] [place] [phone] Elida L [facility] Start: 11-11-2024 End: 11-11-2024 ambulatory 11/11/2024 9:30 AM EST Infusion Elida L [facility] [address] [place] [phone] Elida L [facility] Start: 11-04-2024 End: 11-04-2024 ambulatory 11/04/2024 9:30 AM EST Infusion Elida L [facility] [address] [place] [phone] Elida L [facility]ek[facility] Start: 10-29-2024 End: 10-29-2024 ambulatory 10/29/2024 9:30 AM EST Infusion Elida L [facility] [address] [place] [phone] Elida René [facility] Start: 10-22-2024 End: 10-22-2024 ambulatory 10/22/2024 9:30 AM EST Infusion Elida Ireland [facility] [place] [place] [address] Elida L [facility] Start: 10-20-2024 Subsequent hospital visit by physician 10/20/2024 11:33 AM EST Hospital Encounter [facility] [address] [place] [id number] Hypomagnesemia [facility] Comment on above: Hypomagnesemia Start: 10-18-2024 Adult BMI Screening Adult BMI Screening [facility] Start: 10-18-2024 Depression Screening Depression Screening [facility] Start: 10-18-2024 Tobacco Screening Tobacco Screening [facility] Start: 10-15-2024 End: 10-15-2024 ambulatory 10/15/2024 9:30 AM EST Infusion Elida Merritt [facility] [address] [place] [phone] Elida L [facility] Start: 10-08-2024 End: 10-08-2024 ambulatory 10/08/2024 9:30 AM EST Infusion Elida Ireland [facility] [address] [place] [phone] Elida L [facility] Start: 10-07-2024 End: 10-07-2024 ambulatory 10/07/2024 9:30 AM EST Infusion Elida L [facility] [address] [place] [phone] Elida L [facility] Start: 10-01-2024 End: 10-01-2024 ambulatory 10/01/2024 9:30 AM EST Infusion Elida L [facility] [address] [place] [phone] Elida L [facility] Start: 09-26-2024 End: 09-26-2024 Admission to same day surgery center 09/26/2024 12:30 PM EST - 09/26/2024 1:30 PM EST Surgery [facility] [address] [place] [address] Daniel Guerrero, DO [address] [place] [address] ESOPHAGOGASTRODUODENOSCOPY DIAGNOSTIC [06388 (CPT )] [facility] Comment on above: ESOPHAGOGASTRODUODENOSCOPY DIAGNOSTIC [4 3235 (CPT )] Start: 09-26-2024 End: 09-26-2024 Esophagogastroduodenoscopy transoral diagnostic ESOPHAGOGASTRODUODENOSCOPY DIAGNOSTIC ross's esophagus 09/26/2024 12:30 PM EST [facility] Start: 09-26-2024 Subsequent hospital visit by physician 09/26/2024 12:30 PM EST Hospital Encounter [facility] [address] [place] [address] [phone] Daniel Guerrero, DO [address] [place] [address] [facility] Start: 09-25-2024 End: 09-25-2024 ambulatory 09/25/2024 3:40 PM EST Suppo rt Visit [facility] - Pre Admit [address] [place] [address] [facility] Pre Ad[facility] Start: 09-24-2024 End: 09-24-2024 ambulatory 09/24/2024 9:30 AM EST Infusion Elida Ireland [facility] [address] [place] [phone] Elida Ireland [facility] Start: 09-17-2024 End: 09-17-2024 ambulatory 09/17/2024 9:30 AM EST Infusion Elida Ireland [facility] [address] [place] [address] Elida L [facility] Start: 09-10-2024 End: 09-10-2024 ambulatory 09/10/2024 9:30 AM EDT Infusion Elida L [facility] [address] [place] [address] Elida L [facility]ek[facility] Start: 09-03-2024 End: 09-03-2024 ambulatory 09/03/2024 9:30 AM EDT Infusion Elida L [facility] [address] [place] [phone] Elida L [facility]eka [facility] Start: 08-27-2024 End: 08-27-2024 ambulatory 08/27/2024 9:30 AM EDT Infusion Elida L [facility] [address] [place] [phone] Elida L [facility]eka [facility] Start: 08-20-2024 End: 08-20-2024 ambulatory 08/20/2024 9:30 AM EDT Infusion Elida L [facility] [address] [place] [phone] Elida L [facility]ek[facility] Start: 08-13-2024 End: 08-13-2024 ambulatory 08/13/2024 9:30 AM EDT Infusion Elida L [facility] [address] [place] [phone] Elida L [facility]ek[facility] Start: 08-06-2024 End: 08-06-2024 ambulatory 08/06/2024 9:30 AM EDT Infusion Elida René [facility] [address] [place] [phone] Elida René [facility] Start: 07-30-2024 End: 07-30-2024 ambulatory 07/30/2024 9:30 AM EDT Infusion Elida Ireland [facility] [address] [place] [address] Elida L [facility]ek[facility] Start: 07-24-2024 Fall Risk Screening Fall Risk Screening [facility] Start: 07-23-2024 End: 07-23-2024 ambulatory 07/23/2024 9:30 AM EDT Infusion Elida L [facility]ek[facility] [address] [place] [phone] Elida L Beka [facility] Start: 07-16-2024 End: 07-16-2024 ambulatory 07/16/2024 9:30 AM EDT Infusion Elida L [facility] [address] [place] [phone] Elida L [facility]eka [facility] Start: 07-13-2024 COVID-19 Vaccine () COVID-19 Vaccine () [facility] Start: 07-13-2024 COVID-19 Vaccine ( season) COVID-19 Vaccine () [facility] [facility] Start: 07-09-2024 End: 07-09-2024 ambulatory 07/09/2024 9:30 AM EDT Infusion Elida L Beka [facility] [address] [place] [phone] Elida L Beka [facility] Start: 07-02-2024 End: 07-02-2024 ambulatory 07/02/2024 9:30 AM EDT Infusion Elida L Beka [facility] [address] [place] [phone] Elida L Beka [facility] Start: 06-25-2024 End: 06-25-2024 ambulatory 06/25/2024 9:30 AM EDT Infusion Elida L Beka [facility] [address] [place] [phone] Elida René Beka [facility] Start: 06-18-2024 End: 06-18-2024 ambulatory 06/18/2024 9:30 AM EDT Infusion Elida Ireland [facility] [address] [place] [phone] Elida Ireland [facility] Start: 06-11-2024 End: 06-11-2024 ambulatory 06/11/2024 9:30 AM EDT Infusion Elida Ireland [facility] [address] [place] [phone] Elida Ireland [facility] Start: 06-04-2024 End: 06-04-2024 ambulatory 06/04/2024 9:30 AM EDT Infusion Elida Ireland [facility] [address] [place] [phone] Elida Ireland [facility] Start: 05-28-2024 End: 05-28-2024 ambulatory 05/28/2024 9:30 AM EDT Infusion Elida Ireland [facility] [address] [place] [phone] Elida Ireland [facility] Start: 05-27-2024 End: 05-27-2024 Patient encounter procedure 05/27/2024 1:30 PM EDT Off ice Visit [facility] [address] [place] [address] Fernie Clark, DO [address], [facility] [place] [address] [facility] Start: 05-21-2024 End: 05-21-2024 ambulatory 05/21/2024 9:30 AM EDT Infusion Elida Ireland [facility] [address] [place] [phone] Elida Ireland [facility] Start: 05-14-2024 End: 05-14-2024 ambulatory 05/14/2024 9:30 AM EDT Infusion Elida L Beka [facility] [address] [place] [address] Elida L Beka [facility] Start: 05-07-2024 End: 05-07-2024 ambulatory 05/07/2024 9:30 AM EDT Infusion Elida René Beka [facility] [address] [place] [phone] Elida René Beka [facility] Start: 04-30-2024 End: 04-30-2024 ambulatory 04/30/2024 9:30 AM EDT Infusion Elida René Beka [facility] [address] [place] [phone] Elida René Beka [facility] Start: 04-23-2024 End: 04-23-2024 ambulatory 04/23/2024 9:30 AM EDT Infusion Elida L Beka [facility] [address] [place] [phone] Elida L Beka [facility] Start: 04-16-2024 End: 04-16-2024 ambulatory 04/16/2024 9:30 AM EDT Infusion Eilda L Beka [facility] [address] [place] [phone] Elida René Beka [facility] Start: 04-09-2024 End: 04-09-2024 ambulatory 04/09/2024 9:30 AM EDT Infusion Elida René Beka [facility] [address] [place] [phone] Elida Ireland [facility] Start: 04-02-2024 End: 04-02-2024 ambulatory 04/02/2024 9:30 AM EDT Infusion Elida René Beka [facility] [address] [place] [phone] Elida Ireland [facility] Start: 03-26-2024 End: 03-26-2024 ambulatory 03/26/2024 9:30 AM EDT Infusion Elida Ireland [facility] [address] [place] [phone] Elida Ireland [facility] Start: 03-19-2024 End: 03-19-2024 ambulatory 03/19/2024 9:30 AM EDT Infusion Elida Ireland [facility] [address] [place] [phone] Elida Ireland [facility] Start: 03-05-2024 End: 03-05-2024 ambulatory 03/05/2024 9:30 AM EDT Infusion Elida Irelnad [facility] [address] [place] [phone] Elida Ireland [facility] Start: 02-27-2024 End: 02-27-2024 ambulatory 02/27/2024 9:30 AM EDT Infusion Elida Ireland [facility] [address] [place] [phone] Elida Ireland [facility] Start: 02-25-2024 End: 02-25-2024 Patient encounter procedure 02/25/2024 2:45 PM EDT Off ice Visit [facility] [address] [place] [address] [facility] [address], [facility] [place] [address] [facility] Start: 02-20-2024 End: 02-20-2024 ambulatory 02/20/2024 9:30 AM EDT Infusion Elida Ireland [facility] [address] [place] [phone] Elida Ireland [facility] Start: 02-13-2024 End: 02-13-2024 ambulatory 02/13/2024 9:30 AM EDT Infusion Elida Ireland [facility] [address] [place] [address] Elida Ireland [facility] Start: 02-06-2024 End: 02-06-2024 ambulatory 02/06/2024 9:30 AM EDT Infusion Elida Ireland [facility] [address] [place] [address] Elida Ireland [facility] Start: 01-30-2024 End: 01-30-2024 ambulatory 01/30/2024 9:30 AM EDT Infusion Elida Ireland [facility] [address] [place] [address] Elida Ireland [facility] Start: 01-23-2024 End: 01-23-2024 ambulatory 01/23/2024 9:30 AM EDT Infusion Elida Ireland [facility] [address] [place] [phone] Elida Ireland [facility] Start: 01-16-2024 End: 01-16-2024 ambulatory 01/16/2024 9:30 AM EST Infusion Elida Ireland [facility] [address] [place] [phone] Elida Ireland [facility] Start: 01-09-2024 End: 01-09-2024 ambulatory 01/09/2024 9:30 AM EST Infusion Elida Ireland [facility] [address] [place] [phone] Elida Ireland [facility] Start: 01-08-2024 End: 01-08-2024 Patient encounter procedure 01/08/2024 1:00 PM EST Off ice Visit [facility] [address] [place] [address] [facility] Start: 01-02-2024 End: 01-02-2024 ambulatory 01/02/2024 9:30 AM EST Infusion Elida Merritt Beka [facility] [address] [place] [address] Elida L Beka [facility] Start: 12-26-2023 End: 12-26-2023 ambulatory 12/26/2023 9:30 AM EST Infusion Elida L Beka [facility] [address] [place] [phone] Elida L Beka [facility] Start: 12-19-2023 End: 12-19-2023 ambulatory 12/19/2023 9:30 AM EST Infusion Elida L Beka [facility] [address] [place] [phone] Elida L Beka [facility] Start: 12-12-2023 Administration of varicella zoster vaccine Zoster (Shingles) Vaccine (1 of 2) [employer] Comment on above: Postponed from 03/12/2015 (Patient Refus ed) Start: 12-12-2023 Medicare Annual Wellness Visit Medicare Annual Wellness Visi t [employer] Start: 12-12-2023 End: 12-12-2023 ambulatory 12/12/2023 9:30 AM EST Infusion Elida L Beka [facility] [address] [place] [phone] Elida L Beka [facility] Start: 12-05-2023 End: 12-05-2023 ambulatory 12/05/2023 9:30 AM EST Infusion Elida L Beka [facility] [address] [place] [phone] Elida L Beka [facility] Start: 11-28-2023 End: 11-28-2023 ambulatory 11/28/2023 9:30 AM EST Infusion Elida L Beka [facility] [address] [place] [phone] Elida L Beka [facility] Start: 11-26-2023 End: 11-26-2023 Patient encounter procedure 11/26/2023 1:30 PM EST Off ice Visit [facility] [address] [place] [address] Fernie Clark, [address], [place] [address] [facility] Start: 11-21-2023 End: 11-21-2023 ambulatory 11/21/2023 9:30 AM EST Infusion Elidarudolph Ireland [facility] [address] [place] [address] Elida Ireland [facility] Start: 07-13-2023 COVID-19 Vaccine ( season) COVID-19 Vaccine ( season) [facility] [employer] [facility] Start: 03-12-2015 Administration of varicella zoster vaccine Zoster (Shingles) Vaccine (1 of 2) [facility] Start: 1960 Adult BMI Follow Up Plan Adult BMI Follow Up Plan [facility] End: 05-27-2025 Bacteria identified in Urine by Culture Urine culture (clean catch) Microbiology Routine Dysuria 1 Occurrences starting 05/27/2024 until 05/27/2025 [employer] Work Phone: Comment on above: 1 Occurrences starting 05/27/2024 until 05/27/2025 End: 11-21-2024 Comprehensive metabolic 2000 panel - Serum or Plasma Comprehensive metabolic panel Lab Routine Essential hypertension 1 Occurrences starting 11/21/2023 until 11/21/2024 [employer] [facility] Work Phone: Comment on above: 1 Occurrences starting 11/21/2023 until 11/21/2024 End: 09-04-2025 EMG EMG Neurology Routine Paresthesia of right lower extremity 1 Occurrences starting 09/04/2024 until 09/04/2025 [employer] Work Phone: Comment on above: 1 Occurrences starting 09/04/2024 until 09/04/2025 End: 09-04-2025 Esophagogastroduodenoscopy EGD GI Routine Ross's esophagus with dysplasia 1 Occurrences starting 09/04/2024 until 09/04/2025 [facility] [employer] Comment on above: 1 Occurrences starting 09/04/2024 until 09/04/2025 Esophagogastroduoden oscopy transoral diagnostic ESOPHAGOGASTRODUODENOSCOPY DIAGNOSTIC 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 [facility] End: 11-21-2024 Hemoglobin A1c/Hemoglobin.total in Blood Hemoglobin A1c Lab Routine Type 2 diabetes mellitus with stage 3b chronic kidney disease, with long-term current use of insulin ([facility]) 1 Occurrences starting 11/21/2023 until 11/21/2024 [facility] Comment on above: 1 Occurrences starting 11/21/2023 until 11/21/2024 End: 11-21-2024 Lipid panel Lipid panel Lab Routine Mixe d hyperlipidemia 1 Occurrences starting 11/21/2023 until 11/21/2024 [facility] Comment on above: 1 Occurrences starting 11/21/2023 until 11/21/2024 End: 11-18-2025 Magnesium [Mass/volume] in Serum or Plasma Magnesium Lab Routine Hypomagnesemia weekly for 52 Occurrences starting 11/18/2024 until 11/18/2025 [employer] Work Phone: Comment on above: weekly for 52 Occurrences starting 11/18 until 11/18/2025 End: 11-19-2024 Magnesium [Mass/volume] in Serum or Plasma Magnesium Lab STAT Hypomagnesemia weekly for 52 Occurrences starting 11/19/2023 until 11/19/2024 [employer] [facility] Work Phone: Comment on above: weekly for 52 Occurrences starting 11/19 until 11/19/2024 End: 11-21-2024 Microalbumin - Albumin: Creatinine Urine Ratio Microalbumin - Albumin: Creatinine Urine Ratio Lab Routine Type 2 diabetes mellitus with stage 3b chronic kidney disease, with long-term current use of insulin ([facility]) 1 Occurrences starting 11/21/2023 until 11/21/2024 [facility] Comment on above: 1 Occurrences starting 11/21/2023 until 11/21/2024 End: 01-16-2025 Potassium [Moles/volume] in Serum or Plasma Potassium Lab Routine 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 (CMS-HCC) 1 Occurrences starting 01/17/2024 until 01/16/2025 [facility]: Comment on above: 1 Occurrences starting 01/17/2024 until 01/16/2025 Renal function 2000 panel - Serum or Plasma [facility] Immunizations Immunization Date Immunization Notes Care Provider Fa cili 08-31-2021 Influenza, High-dose , Quadrivalent Fernie Furlong DO Work Phone: [facility] 02-01-2021 COVID-19, mRNA, LNP- S, PF, 30mcg/0.3mL Dose Fernie Furlong DO Work Phone: [facility] 01-10-2021 COVID-19, mRNA, LNP- S, PF, 30mcg/0.3mL Dose Fernie Furlong DO Work Phone: [facility] 07-29-2020 influenza, high dose seasonal, preservative-free Fernie Furlong DO Work Phone: [facility] 09-03-2019 influenza, high dose seasonal, preservative-free Fernie Furlong DO Work Phone: [facility] 09-30-2018 tetanus toxoid, redu kiran diphtheria toxoid, and acellular pertussis vaccine, adsorbed Fernie Furlong DO Work Phone: [facility] 09-19-2018 influenza, high dose seasonal, preservative-free Fernie Furlong DO Work Phone: [facility] 09-03-2017 influenza virus vacc ine, unspecified formulation Fernie Furlong DO Work Phone: [facility] 07-27-2015 influenza, seasonal, injectable, preservative free Fernie Furlong DO Work Phone: [facility] 07-27-2015 seasonal influenza, intradermal, preservative free Fernie Furlong DO Work Phone: [facility] 01-15-2015 zoster vaccine, live Fernie Clark DO Work Phone: [facility] 01-15-2015 zoster vaccine, unspecified formulation Fernie Clark DO Work Phone: [facility] 07-16-2014 influenza, seasonal, injectable Fernie Clark DO Work Phone: [facility] 10-20-2013 pneumococcal conjuga te vaccine, 13 valent Fernie Barkleyng DO Work Phone: [facility] 08-30-2011 tetanus and diphther ia toxoids, not adsorbed, for adult use Fernie Clark DO Work Phone: [facility] 08-20-2008 pneumococcal polysaccharide vaccine, 23 valent Fernie Barkleyng DO Work Phone: [facility] Payers Date Payer Category Payer Unknown 11-12-2015 Managed Care Other (unspecified) [facility] [id number] 11-12-2015 Private Health Insurance [facility] AAR SUPPLEMENT [id number] 11/12/2015-Present [phone] [address] [place] [address] [id number] 09-12-2007 Medicare [id number] 11-12-1959 Medicare [id number] 11-12-1959 Unknown [id number] 1942 Unknown [id number] 2.16.840.1.316963.3.579.2 .647 1942 Unknown [id number] 2.16.840.1.085444.3.579.2 .593 1942 Unknown [id number] 2.16.840.1.449439.3.579.2 .593 1942 Unknown [id number] 2.16.840.1.346812.3.579.2 .593 1942 Unknown [id number] 2.16.840.1.613081.3.579.2 .593 1942 Unknown [id number] 2.16.840.1.279458.3.579.2 .593 1942 Unknown [id number] 2.16.840.1.488742.3.579.2 .593 1942 Unknown [id number] 2.16.840.1.156307.3.579.2 .593 1942 Unknown [id number] 2.16.840.1.697396.3.579.2 .593 1942 Unknown [id number] 2.16.840.1.679359.3.579.2 .593 1942 Unknown [id number] 2.16.840.1.553475.3.579.2 .593 1942 Unknown [id number] 2.16.840.1.099423.3.579.2 .593 1942 Unknown [id number] 2.16.840.1.374184.3.579.2 .1286 1942 Unknown [id number] 2.16.840.1.343049.3.579.2 .1286 1942 Unknown [id number] 2.16.840.1.394281.3.579.2 .128 1942 Unknown [id number] 2.16.840.1.642969.3.579.2 .1285 1942 Unknown [id number] 2.16.840.1.821508.3.579.2 .1285 1942 Unknown [id number] 2.16.840.1.548328.3.579.2 .1285 1942 Unknown [id number] 2.16.840.1.158906.3.579.2 .128 1942 Unknown [id number] 2.16.840.1.899081.3.579.2 .1942 Unknown [id number] 2.16.840.1.320929.3.579.2 .1942 Unknown [id number] 2.16.840.1.552594.3.579.2 .1942 Unknown [id number] 2.16.840.1.273229.3.579.2 .1942 Unknown [id number] 2.16.840.1.376739.3.579.2 .1285 1942 Unknown [id number] 2.16.840.1.241289.3.579.2 .1285 1942 Unknown [id number] 2.16.840.1.367651.3.579.2 .1285 1942 Unknown [id number] 2.16.840.1.214605.3.579.2 .1285 1942 Unknown [id number] 2.16.840.1.232331.3.579.2 .1285 1942 Unknown [id number] 2.16.840.1.786861.3.579.2 .1285 1942 Unknown [id number] 2.16.840.1.859758.3.579.2 .1285 1942 Unknown [id number] 2.16840.1.636415.3.579.2 .1285 1942 Unknown [id number] 2.840.1.614055.3.579.2 .1285 1942 Unknown [id number] 2.840.1.893165.3.579.2 .1285 1942 Unknown [id number] 2.840.1.680581.3.579.2 .1285 1942 Unknown [id number] 2.840.1.983410.3.579.2 .1285 1942 Unknown [id number] 2.840.1.267497.3.579.2 .1285 1942 Unknown [id number] 2.0.1.649466.3.579.2 .1285 1942 Unknown [id number] 2.840.1.184588.3.579.2 .1285 1942 Unknown [id number] 2.840.1.394332.3.579.2 .1285 1942 Unknown [id number] 2.840.1.349854.3.579.2 .1285 1942 Unknown [id number] 2.840.1.563432.3.579.2 .1285 1942 Unknown [id number] 2.840.1.313862.3.579.2 .1285 1942 Unknown [id number] 2.840.1.955952.3.579.2 .1285 1942 Unknown [id number] 2.840.1.702746.3.579.2 .1285 1942 Unknown [id number] 2.840.1.165107.3.579.2 .1285 1942 Unknown [id number] 2.16.840.1.974392.3.579.2 .1285 1942 Unknown [id number] 2.16.840.1.697390.3.579.2 .1285 1942 Unknown [id number] 2.16.840.1.327419.3.579.2 .1285 1942 Unknown [id number] 2.16.840.1.376173.3.579.2 .1285 1942 Unknown [id number] 2.16.840.1.528461.3.579.2 .1285 1942 Unknown [id number] 2.840.1.095085.3.579.2 .1285 1942 Unknown [id number] 2.840.1.854050.3.579.2 .1285 1942 Unknown [id number] 2.840.1.336250.3.579.2 .1285 1942 Unknown [id number] 2.840.1.427927.3.579.2 .1285 1942 Unknown [id number] 2.840.1.871910.3.579.2 .1285 1942 Unknown [id number] 2.840.1.311429.3.579.2 .1285 1942 Unknown [id number] 2.840.1.962502.3.579.2 .1285 1942 Unknown [id number] 2.16840.1.787881.3.579.2 .1285 1942 Unknown [id number] 2.16.840.1.892366.3.579.2 .1285 1942 Unknown [id number] 2.16840.1.850156.3.579.2 .1285 1942 Unknown [id number] 2.16.840.1.993480.3.579.2 .1285 1942 Unknown [id number] 2.16.840.1.399069.3.579.2 .1285 1942 Unknown [id number] 2.16.840.1.629399.3.579.2 .1285 1942 Unknown [id number] 2.16.840.1.791617.3.579.2 .1285 1942 Unknown [id number] 2.16.840.1.542543.3.579.2 .1285 1942 Unknown [id number] 2.16.840.1.617658.3.579.2 .1285 1942 Unknown [id number] 2.16.840.1.403863.3.579.2 .1285 1942 Unknown [id number] 2.840.1.595887.3.579.2 .1285 1942 Unknown [id number] 2.16.840.1.234504.3.579.2 .1285 1942 Unknown [id number] 2.840.1.417033.3.579.2 .1285 1942 Unknown [id number] 2.16.840.1.731520.3.579.2 .1285 1942 Unknown [id number] 2.16840.1.234440.3.579.2 .1285 1942 Unknown [id number] 2.16.840.1.353079.3.579.2 .1285 1942 Unknown [id number] 2.16.840.1.541140.3.579.2 .1285 1942 Unknown [id number] 2.16.840.1.812068.3.579.2 .1285 1942 Unknown [id number] 2.16.840.1.651409.3.579.2 .1285 1942 Unknown [id number] 2.16.840.1.823252.3.579.2 .1285 1942 Unknown [id number] 2.16.840.1.938314.3.579.2 .1285 1942 Unknown [id number] 2.16.840.1.401839.3.579.2 .1285 1942 Unknown [id number] 2.16.840.1.536569.3.579.2 .1285 1942 Unknown [id number] 2.16.840.1.707591.3.579.2 .1285 1942 Unknown [id number] 2.16.840.1.505309.3.579.2 .1285 1942 Unknown [id number] 2.16.840.1.860853.3.579.2 .1285 1942 Unknown [id number] 2.16.840.1.436935.3.579.2 .1285 1942 Unknown [id number] 2.16.840.1.484823.3.579.2 .1285 1942 Unknown [id number] 2.16.840.1.244175.3.579.2 .1285 1942 Unknown [id number] 2.16.840.1.895479.3.579.2 .1285 1942 Unknown [id number] 2.16.840.1.256489.3.579.2 .1285 1942 Unknown [id number] 2.16.840.1.326035.3.579.2 .1285 1942 Unknown [id number] 2.16.840.1.908458.3.579.2 .1285 1942 Unknown [id number] 2.16.840.1.210948.3.579.2 .1285 1942 Unknown [id number] 2.16.840.1.594389.3.579.2 .1285 1942 Unknown [id number] 2.16.840.1.282633.3.579.2 .1285 1942 Unknown [id number] 2.16.840.1.914751.3.579.2 .1285 1942 Unknown [id number] 2.16.840.1.985414.3.579.2 .1285 1942 Unknown [id number] 2.16.840.1.252661.3.579.2 .1285 1942 Unknown [id number] 2.16.840.1.981713.3.579.2 .1285 1942 Unknown [id number] 2.16.840.1.832710.3.579.2 .1285 1942 Unknown [id number] 2.16.840.1.351114.3.579.2 .1285 1942 Unknown [id number] 2.16.840.1.026361.3.579.2 .1285 1942 Unknown [id number] 2.16.840.1.685754.3.579.2 .1285 1942 Unknown [id number] 2.16.840.1.172162.3.579.2 .1285 1942 Unknown [id number] 2.16.840.1.947755.3.579.2 .1285 1942 Unknown [id number] 2.16.840.1.329475.3.579.2 .1285 1942 Unknown [id number] 2.16.840.1.675279.3.579.2 .1285 1942 Unknown [id number] 2.16.840.1.077003.3.579.2 .1285 1942 Unknown [id number] 2.16.840.1.602617.3.579.2 .1286 1942 Unknown [id number] 2.16.840.1.892828.3.579.2 .1286 1942 Unknown [id number] 2.16.840.1.444661.3.579.2 .1286 1942 Unknown [id number] 2.16.840.1.263270.3.579.2 .1286 1942 Unknown [id number] 2.16.840.1.363871.3.579.2 .1286 1942 Unknown [id number] 2.16.840.1.661496.3.579.2 .1286 1942 Unknown [id number] 2.16.840.1.080444.3.579.2 .128 1942 Unknown [id number] 2.16.840.1.298157.3.579.2 .128 1942 Unknown [id number] 2.16.840.1.703011.3.579.2 .128 1942 Unknown [id number] 2.16.840.1.123160.3.579.2 .1286 1942 Unknown [id number] 2.16.840.1.560752.3.579.2 .1286 Private Health Insurance [facility] [id number] Self-pay Self Pay [id number] Social History Date Type Detail Facility Unknown if ever smoked [employer] Other Start: 01-08-2024 End: 08-06-2024 Sex Assigned At [facility] Start: 1940 Sex Assigned At Female F [facility] Start: 05-04-2017 End: 05-01-2024 Tobacco smoking status NHIS Never smoked tobacco (finding) [facility] Start: 05-04-2017 Tobacco use and exposure Smokeless tobacco non-user [facility] Start: 09-26-2024 End: 09-30-2024 Alcoholic beverage intake Ex-drinker (finding) [facility] Start: 01-08-2024 End: 08-06-2024 History of Social function [facility] Has the [employer], or [employer] threatened to shut off services in your home in past 12Mo No [facility] Are you now , , , , never or living with a partner? [facility] How often to you hav e a drink containing alcohol? Never [facility] How many standard drinks containing alcohol do you have on a typical day? Patient does not drink [facility] Do you feel stress - tense, restless, nervous, or anxious, or unable to sleep at night because your mind is troubled all the time - these days [OSQ] Not at all [facility] Start: 1940 Sex assigned at Not on file P [facility] Start: 06-17-2015 End: 11-21-2024 Sex Female (finding) [facility] Start: 10-18-2023 End: 09-10-2024 Alcohol intake Current drinker of alcohol (finding) [facility] Medical Equipment Procedure Code Equipment Code Equipment Origin al Text Equipment Identifier Dates 1 strip by other route in the morning and 1 strip before bedtime. [id number] Start: 08-30-2023 End: 11-18-2024 1 Lancet. by miscellaneous route in the morning and 1 Lancet. before bedtime. [id number] Start: 08-30-2023 USE 1 NEEDLE THR EE TIMES A DAY [id number] Start: 07-17-2024 1 strip by other route in the morning and 1 strip before bedtime. [id number] Start: 11-18-2024 USE 1 NEEDLE THR EE TIMES A DAY [id number] Start: 07-23-2023 End: 07-17-2024 Clinical Notes 12-27-2021 to 12-26-2024 Fernie Calrk, - 12/26/2024 11:59 PM Shadia Clark DO - 12/19/2024 11:59 PM ESTTelephone Encounter - Bonny Bowles - 12/18/2024 9:09 AM Shanique Costa - 11/24/2024 8:41 AM EST Note Date & Type Note Facility 12-26-2024 History of Presen t illness Narrative Images from the original note were not included. Patient Name: Adore Wolff Date of : 1940 Date of Service: 12/26/2024 [place] [facility] [place]illed Visit Subjective Adore Wolff is a 84 y.o. female seen today at long term facility for therapy visit. Adore has several issues today. She has been nauseated off and on. No vomiting. She is also anxious. Zofran hasn't been helping. Appetite is fair. She is having dysuria. She had 3 DM's today and gets crampy pain with them but it doesn't persist. She had a UA and C&S done which was abnormal. Her BP is still running high. She had an episode of hypoglycemia where she was given insulin but did't eat for a while and she became sweaty and confused. She is participating in therapy and is standing longer than she did before. She did use a foot pedal device and it seems to have aggravated low back pain. Allergies: Adhesive, Adhesive tape-silicones, Betadine [povidone-iodine], Red dye, Sulfa (sulfonamide antibiotics), Sulfa dyne, Tetracyclines, Diltiazem, and Linagliptin Code Status: DNRCC-A Objective BP 178/78 Pulse 64 Temp 36.5 C (97.7 F) Resp 18 SpO2 98% Physical Exam Constitutional: General: She is not in acute distress. Comments: In bed. Family present. Cardiovascular: Rate and Rhythm: Normal rate and regular rhythm. Heart sounds: Normal heart sounds. No murmur heard. Pulmonary: Effort: Pulmonary effort is normal. No respiratory distress. Breath sounds: Normal breath sounds. No wheezing, rhonchi or rales. Abdominal: General: Bowel sounds are normal. Palpations: Abdomen is soft. Tenderness: There is no abdominal tenderness. There is no guarding or rebound. Musculoskeletal: Lumbar back: Spasms and tenderness present. Back: Psychiatric: Mood and Affect: Mood normal. Behavior: Behavior is cooperative. Comments: Pleasant UA abnormal-+WBCs. Urine culture reviewed-organisms with 50-100K colonies and 10- Assessment/Plan Summary / Assessment / Plan 1. Acute cystitis with hematuria 2. Essential hypertension 3. Acute right-sided low back pain without sciatica 4. Nausea 5. Anxiety Hydroxyzine 25mg Q6hrs prn nausea or anxiety x 14 days Increase lisinopril to 40 mg daily Amoxil 875 mg BID x 7 days Check CBC and CMP on Sunday Ok for dexcom or freestyle cecelia to monitor blood sugars prn Continue therapy to reach maximum improvement ELECTRONICALLY SIGNED BY: Fernie Clark DO documented in this encounter [facility] [employer] 12-19-2024 History of Presen t illness Narrative Patient Name: Adore Wolff Date of : 1940 Date of Service: 12/19/2024 Facility: [facility] Type of Visit: Skilled Visit Subjective Adore Wolff is a 84 y.o. female seen today at long term facility for therapy visit. Adore is having a lot of abdominal pain, cramping and pressure. She is having issues with constipation. An x-ray done suggested constipation. She took her lyrica with tylenol this morning and it worked pretty good most of the day and pain has worsened this evening. She is trying to eat her fruits and vegetables. She did have a small BM today. She was started on Colace and senna. She is now having burning with urination. She is participating in therapy. She has not had any tramadol recently but is doing okay without it. Nurses called about elevated blood pressure the other night it lisinopril 20 mg started. Allergies: Adhesive, Adhesive tape-silicones, Betadine [povidone-iodine], Red dye, Sulfa (sulfonamide antibiotics), Sulfa dyne, Tetracyclines, Diltiazem, and Linagliptin Code Status: DNRCC-A Objective Pulse 60 Temp 36.5 C (97.7 F) Resp 18 Wt 117.9 kg (260 lb) SpO2 95% BMI 43.27 kg/m Physical Exam Vitals reviewed. Constitutional: Comments: She is sitting up in recliner eating and watching TV HENT: Head: Normocephalic. Cardiovascular: Rate and Rhythm: Normal rate and regular rhythm. Heart sounds: Murmur heard. Pulmonary: Effort: Pulmonary effort is normal. No respiratory distress. Breath sounds: Normal breath sounds. No wheezing, rhonchi or rales. Abdominal: General: Bowel sounds are normal. Palpations: Abdomen is soft. Tenderness: There is abdominal tenderness (diffuse). Musculoskeletal: Right lower le+ Edema present. Left lower le+ Edema present. Comments: nonpitting Neurological: Mental Status: She is alert. Psychiatric: Behavior: Behavior is cooperative. Comments: pleasant Assessment/Plan Summary / Assessment / Plan 1. Constipation, unspecified constipation type 2. Essential hypertension 3. Dysuria 4. History of UTI 5. History of sepsis 6. Chronic low back pain without sciatica, unspecified back pain laterality We discussed different treatments for constipation like mag citrate and MiraLax. She would like to try the MiraLax 1st. We will give 17 g in 8 oz of water now in her daily p.r.n.. Continue other medications as before. Can also use hot packs p.r.n.. Check MSCC UA and do C&S if abnormal. We discussed restarting tramadol but could aggravate constipation so she deferred for now. Continue therapy to reach maximum improvement. ELECTRONICALLY SIGNED BY: Fernie Clark DO documented in this encounter [facility] 12-18-2024 Miscellaneous Notes NEW EMG / NCV ORDER 1st attempt: Audiology Technician contacted patient's spouse and informed him that we have received patient's EMG order. Spouse stated that he is not interested in scheduling at this time, as the patient is currently in a rehab facility but will call back if anything should change. Audiology Technician reassured him that their referral is valid for up to one year should he change his mind - he stated understanding. documented in this encounter [facility] 12-18-2024 Telephone encounter Note NEW EMG / NCV ORDER 1st attempt: Audiology Technician contacted patient's spouse and informed him that we have received patient's EMG order. Spouse stated that he is not interested in scheduling at this time, as the patient is currently in a rehab facility but will call back if anything should change. Audiology Technician reassured him that their referral is valid for up to one year should he change his mind - he stated understanding. [facility] 12-02-2024 Miscellaneous Notes Fanny the nurse at the [facility] called and stated you were in yesterday evening and stated they had aske for a refill for tramodol and the lyrica be sent to [facility] pharmacy. Also you had discontinued the [...] I did send in a prescription to [facility] in [place]. If it is a different [facility] then I need to resend it somewhere else Spoke with Fanny and she will follow up with Pharmacy documented in this encounter [facility] 12-02-2024 Telephone encounter Note Fanny the nurse at the [facility] called and stated you were in yesterday evening and stated they had aske for a refill for tramodol and the lyrica be sent to [facility] pharmacy. Also you had discontinued the trazadone and never put an order in. Do you still want this D/C? If so did you want something in replace of it? Also she is very lethargic today. [facility] 12-02-2024 Telephone encounter Note It could not find any order sheets so I gave a verbal order to stop the trazodone to the nurse. I also asked her if she needed any of her controlled substances and she said no. I did send in a prescription to [facility] in [place]. If it is a different [facility] then I need to resend it somewhere else [facility] 12-02-2024 Telephone encounter Note Spoke with Fanny and she will follow up with Pharmacy [facility] 12-01-2024 Miscellaneous Notes Contract: [address] [employer] called for orders to have patient sent to hospital for evaluation [id number] I called Dr Clark & transferred him to [facility] [employer] documented in this encounter [facility] 12-01-2024 Telephone encounter Note Contract: [address] Jo[address] Tor[address] [facility] called for orders to have patient sent to hospital for evaluation [facility] 12-01-2024 Telephone encounter Note [id number] I called Dr Clark & transferred him to Joanie Shan [facility] 11-24-2024 History of Presen t illness Narrative Patient's spouse called CCM nurse this morning [...] possible. Please advise. documented in this encounter [facility] 11-24-2024 Miscellaneous Notes Patient's spouse called CCM nurse this morning [...] be septic Notified documented in this encounter [facility] 11-24-2024 Telephone encounter Note Patient's spouse called CCM nurse this [...] today by PCP if possible. Please advise. [facility] 11-24-2024 Telephone encounter Note She has altered mental status she should go to the emergency room. She could be septic [facility] 11-24-2024 Telephone encounter Note Notified [facility] 11-17-2024 History of Presen t illness Narrative Diabetic Supplies: After numerous attempts by and JARON we have been unable to get in touch with [facility] regarding patient diabetes supplies. Patient is currently out of test strips and would like order sent to new DME supplier. Could you please fax order to [facility] for [employer] meter and strips. Fax number: [phone]. [facility] Chronic [facility] Nurse [employer]el Mechanic Apprentice [phone] documented in this encounter [facility] 11-17-2024 Miscellaneous Notes Diabetic Supplies: After numerous attempts by and JARON we have been unable to get in touch with [employer] regarding patient diabetes supplies. Patient is currently out of test strips and would like order sent to new DME supplier. Could you please fax order to [facility] for [employer] meter and strips. Fax number: [phone]. [facility] Chronic [facility] Nurse Diesel Mechanic Apprentice [phone] Please fax to [facility]. Prescriptions were printed documented in this encounter [facility] 11-17-2024 Telephone encounter Note Diabetic Supplies: After numerous attempts by SN and MA we have been unable to get in touch with [employer] regarding patient diabetes supplies. Patient is currently out of test strips and would like order sent to new DME supplier. Could you please fax order to [facility] for [employer] meter and strips. Fax number: [phone]. [facility] Chronic Care Nurse Diesel Mechanic Apprentice [phone] [facility] 11-17-2024 Telephone encounter Note Please fax to [facility]. Prescriptions were printed [facility] 11-04-2024 History of Presen t illness Narrative Patient is here for 2g IV magnesium as scheduled. Mg level 1.7. PIV initiated, blood return noted, flushes with ease. NS started at KVO. Magnesium infused over 2 hours. Line flushed. Pt tolerated well. PIV dc'd, pressure dressing applied. Pt dc'd in stable ambulatory condition with spouse. documented in this encounter [facility] 10-20-2024 History of Presen t illness Narrative Patient mag level is 1.9, will not need magnesium infusion this week. Patient made aware and will continue on with next week's lab draw. documented in this encounter [facility] 10-07-2024 Miscellaneous Notes Call patient and see if she requested this. It was stopped in the summertime documented in this encounter [facility] 10-07-2024 Telephone encounter Note Call patient and see if she requested this. It was stopped in the summertime [facility] 10-07-2024 History of Presen t illness Narrative Patient is here for 2g IV magnesium as scheduled. Mg level 1.7. PIV initiated, blood return noted, flushes with ease. NS started at KVO. Magnesium infused over 2 hours. Line flushed. Pt tolerated well. PIV dc'd, pressure dressing applied. Pt dc'd in stable ambulatory condition with spouse. documented in this encounter [facility] 10-01-2024 History of Presen t [...] updated treatment calendar. documented in this encounter [facility] 09-10-2024 Miscellaneous Notes NEW EMG/NCV ORDER First attempt- Left Voicemail Dx: Paresthesia of right lower extremity [R20.2]/ Referred by: Fernie Clark DO Referred to: Please schedule patient in the next available appointment with provider. Patient returned call and patient was scheduled for next available EMG in [place]. Patient was placed on waitlist. Appointment: 12/15/2024 at 12:30pm with Dr. Urbano documented in this encounter [facility] 09-10-2024 Telephone encounter Note NEW EMG/NCV ORDER First attempt- Left Voicemail Dx: Paresthesia of right lower extremity [R20.2]/ Referred by: Fernie Clark DO Referred to: Please schedule patient in the next available appointment with provider. [facility] 09-10-2024 Telephone encounter Note Patient returned call and patient was scheduled for next available EMG in [place]. Patient was placed on waitlist. Appointment: 12/15/2024 at 12:30pm with Dr. Urbano [facility] 09-10-2024 History of Presen t illness Narrative Pt here for 2g IV magnesium. Mg level 1.7. PIV initiated to RFA. Brisk blood return verified, and flushes with ease. Magnesium infused over 2 hours without incident. Pt tolerated well. Flushed with saline and PIV dc'd. Pt dc'd in stable ambulatory condition. documented in this encounter [facility] 09-01-2024 History of Presen t illness Narrative Pt magnesium level 1.8. called to notify patient to see if shed like to notify dr medina office to see if she should still get mg infusion since she's WNL. Pt requests to take the week off and recheck mg level in one week. documented in this encounter [facility] 08-27-2024 History of Presen t illness Narrative Patient is here for 2g IV magnesium as scheduled. Mg level 1.6. PIV initiated, blood return noted, flushes with ease. NS started at KVO. Magnesium infused over 2 hours. Line flushed. Pt tolerated well. PIV dc'd, pressure dressing applied. Pt dc'd in stable ambulatory condition with spouse. documented in this encounter [facility] 08-22-2024 History of Presen t illness Narrative When was the last Refill? 05/27/24 Is this medication Historical? [place] of preferred Pharmacy? [facility] When was the last OV with provider? 05/27/24 When is the next scheduled visit? 11/27/24 documented in this encounter [facility] 08-20-2024 History of Presen t illness Narrative Pt here for 2g IV magnesium. Mg level 1.6. PIV initiated to RFA. Brisk blood return noted, flushes with ease. Magnesium infused over 2 hours. Line flushed. Pt tolerated well. PIV dc'd. Pressure dressing applied. Dc'd in stable ambulatory condition. documented in this encounter [facility] 08-13-2024 History of Presen t illness Narrative Pt here for 2g IV magnesium per pt reqeust. Mg level 1.6. PIV initiated to LFA. Brisk blood return noted, flushes with ease. NS started at KVO. Magnesium infused over 2 hours. Pt tolerated well. PIV dc'd. Pressure dressing applied. Dc'd in stable ambulatory condition. documented in this encounter [facility] 08-06-2024 History of Presen t illness Narrative Pt here for 2g IV magnesium per pt reqeust. Mg level 1.5. PIV initiated to RFA. Brisk blood return noted, flushes with ease. NS started at KVO. Magnesium infused over 2 hours. Pt tolerated well. PIV dc'd. Pressure dressing applied. Dc'd in stable ambulatory condition. documented in this encounter [facility] 07-30-2024 History of Presen t illness Narrative Patient presents for Magnesium infusion. Mg 1.5 drawn 07/28/2024 Patient requests 2g of Magnesium today. PIV initiated, brisk blood return noted. Flushed with NS. Magnesium infusing as ordered over 2 hours. Patient tolerated infusion well. PIV discontinued, gauze secured with coban in place. Discharged in stable condition. documented in this encounter [facility] 07-23-2024 History of Presen t illness Narrative Patient presents for Magnesium infusion. Mg 1.6 drawn 07/21/2024 Patient will received 2g of Magnesium today per orders. PIV initiated, brisk blood return noted. Flushed with NS. Magnesium infusing as ordered over 2 hours. Patient tolerated infusion well. PIV discontinued, gauze secured with coban in place. Discharged in stable condition. documented in this encounter [facility] 07-16-2024 History of Presen t illness Narrative Pt here for 4gm IV magnesium for mg level 1.5. PIV initiated to RFA. Brisk blood return noted, flushes with ease. NS started at KVO. 4g IV magnesium infused over 4 hours without incident. Line flushed. PIV removed, pressure dressing applied. Dc'd in stable ambulatory condition. documented in this encounter [facility] 07-09-2024 History of Presen t illness Narrative Pt here for 2gm IV magnesium for mg level 1.6. PIV initiated to RFA. Brisk blood return noted, flushes with ease. NS started at KVO. 2g IV magnesium infused over 2 hours without incident. Line flushed. PIV removed, pressure dressing applied. Dc'd in stable ambulatory condition. documented in this encounter [facility] 07-02-2024 History of Presen t illness Narrative Pt here for 2gm IV magnesium for mg level 1.6. PIV initiated to RFA. Brisk blood return noted, flushes with ease. NS started at KVO. 2g IV magnesium infused over 2 hours without incident. Line flushed. PIV removed, pressure dressing applied. Dc'd in stable ambulatory condition. documented in this encounter [facility] 06-25-2024 History of Presen t illness Narrative Pt here for 2gm IV magnesium for mg level 1.7. PIV initiated to RFA. Brisk blood return noted, flushes with ease. NS started at KVO. 2g IV magnesium infused over 2 hours without incident. Line flushed. PIV removed, pressure dressing applied. Dc'd in stable ambulatory condition. documented in this encounter [facility] 06-18-2024 History of Presen t illness Narrative Patient is here for 2g IV magnesium as scheduled. Mg level 1.7. PIV initiated, blood return noted, flushes with ease. NS started at KVO. Magnesium infused over 2 hours. Line flushed. Pt tolerated well. PIV dc'd, pressure dressing applied. Pt dc'd in stable ambulatory condition with spouse. documented in this encounter [facility] [employer] 06-11-2024 History of Presen t illness Narrative Pt here for 2g IV magnesium for mg level 1.7. The patient appears well, vitals are stable After 4 attempts, PIV initiated to LFA. Brisk blood return noted, flushes with ease. NS started at KVO. Magnesium infused over 2 hours. Pt tolerated well. PIV dc'd. Pressure dressing applied. Dc'd in stable ambulatory condition with spouse. documented in this encounter [facility] 05-29-2024 Miscellaneous Notes ----- Message from Dr. Fernie Clark DO sent at 05/29/2024 10:50 AM EDT ----- Okay but I do not want her to collected at home. I want her to provide the sample here in the office ----- Message ----- From: Blanka Maya Sent: 05/29/2024 10:40 AM EDT To: Fernie Clark DO Message relayed to patient. She will bring us a new sample for testing. Adore will come in tomorrow to provide a repeat urine sample in office. She also was wondering about her low dose asprin. She had discontinued it about 1.5 months ago due to frequent nose bleeds. The nose bleeds are gone and wonders if she should start her asprin again. Okay great! Yes she can restart aspirin 81 mg Patient notified documented in this encounter [facility] 05-29-2024 Telephone encounter Note ----- Message from Dr. Fernie Clark DO sent at 05/29/2024 10:50 AM EDT ----- Okay but I do not want her to collected at home. I want her to provide the sample here in the office ----- Message ----- From: Blanka Maya Sent: 05/29/2024 10:40 AM EDT To: Fernie Clark DO Message relayed to patient. She will bring us a new sample for testing. [facility] 05-29-2024 Telephone encounter Note Adore will come in tomorrow to provide a repeat urine sample in office. She also was wondering about her low dose asprin. She had discontinued it about 1.5 months ago due to frequent nose bleeds. The nose bleeds are gone and wonders if she should start her asprin again. [facility] 05-29-2024 Telephone encounter Note Okay great! Yes she can restart aspirin 81 mg [facility] 05-29-2024 Telephone encounter Note Patient notified [facility] 05-28-2024 History of Presen t illness Narrative Patient presents for Magnesium infusion. Mg 1.6 drawn 05/26/2024 Patient will received 2g of Magnesium today per orders. PIV initiated, brisk blood return noted. Flushed with NS. Magnesium infusing as ordered over 2 hours. Patient tolerated infusion well. PIV discontinued, gauze secured with coban in place. Discharged in stable condition. documented in this encounter [facility] 05-27-2024 History of Presen t illness Narrative Subjective Patient ID: Adore Wolff is a 83 y.o. female. Adore presents today for diabetic recheck. She is taking her medications and not having any side effects. She has had it upper respiratory infection for a couple weeks it is better but she still has a nagging cough. She tried ptij-fzu-bhlovjh cough medicine but it made it worse. She does not have a fever. Increased shortness a breath. She has a lot of runny nose and drainage. She also is having dysuria and urinary frequency and urgency. She brought in a urine specimen. She also has urinary incontinence, especially in the morning when she first gets up. She is having incontinence of bowel too. She cut back on reglan to once a day and is thinking about stopping it. She feels the urge but can't get to the bathroom in time. The following portions of the patient's history were reviewed and updated as appropriate: allergies, current medications, past family history, past medical history, past social history, past surgical history, problem list, and medication reconciliation was completed including current medication and post discharge medication. Review of Systems Genitourinary: Positive for frequency and urgency. Objective Physical Exam Vitals reviewed. Exam conducted with a home health care coordinator present (Ifeanyi Johnson MS III). Constitutional: General: She is not in acute distress. Appearance: She is morbidly obese. HENT: Head: Normocephalic. Cardiovascular: Rate and Rhythm: Normal rate and regular rhythm. Pulses: Normal pulses. Heart sounds: Normal heart sounds. No murmur heard. Pulmonary: Effort: Pulmonary effort is normal. No respiratory distress. Breath sounds: Normal breath sounds. No wheezing, rhonchi or rales. Musculoskeletal: Right lower leg: Edema present. Left lower leg: Edema present. Comments: Wearing compression hose Neurological: General: No focal deficit present. Mental Status: She is alert and oriented to person, place, and time. Gait: Gait abnormal (using a walker). Psychiatric: Mood and Affect: Mood normal. Behavior: Behavior normal. Thought Content: Thought content normal. Judgment: Judgment normal. Assessment/Plan Adore was seen today for follow-up. 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 Acute rhinitis Will treat with loratadine 10 mg daily Morbid obesity ([facility] [place]) She is morbidly obese. She would benefit from wt loss. Incontinence of feces with fecal urgency Recommended to stop reglan and try fiber supplement to give more bulk to stool.. Other orders - loratadine (CLARITIN) 10 mg tablet; Take 1 tablet (10 mg total) by mouth daily as needed for allergies. documented in this encounter [facility] 05-21-2024 History of Presen t illness Narrative Pt here for 2g IV magnesium for mg level of 1.7. PIV initiated to RFA. Brisk blood return noted, flushes with ease. NS started at KVO. Magnesium infused over 2 hours. Pt tolerated well. Line flushed. PIV dc'd. Pressure dressing applied. Dc'd in stable ambulatory condition. documented in this encounter [facility] 05-14-2024 History of Presen t illness Narrative Pt here for 2g IV magnesium for mg level 1.6. PIV initiated to RFA. Brisk blood return noted, flushes with ease. NS started at KVO. Magnesium infused over 2 hours. Pt tolerated well. PIV dc'd. Pressure dressing applied. Dc'd in stable ambulatory condition with spouse. documented in this encounter [facility] 05-07-2024 History of Presen t illness Narrative Patient is here for 4g IV magnesium as scheduled. Mg level 1.4. PIV initiated, blood return noted, flushes with ease. NS started at KVO. Magnesium infused over 2 hours. Line flushed. Pt tolerated well. PIV dc'd, pressure dressing applied. Pt dc'd in stable ambulatory condition with spouse. documented in this encounter [facility] 04-30-2024 History of Presen t illness Narrative Patient presents for Magnesium infusion. Mg 1.5 drawn 04/28/2024 Patient would like to do 2 grams of Magnesium today. PIV initiated to right forearm, brisk blood return noted. Flushed with NS. Magnesium infusing as ordered over 2 hours. Patient tolerated infusion well. PIV discontinued, gauze secured with coban in place. Discharged in stable condition. documented in this encounter [facility] 04-23-2024 History of Presen t illness Narrative Pt here for 4g IV magnesium for mg level of 1.4. PIV initiated to RFA. Brisk blood return noted, flushes with ease. NS started at KVO. Magnesium infused over 4 hours as ordered. Pt tolerated well. Line flushed. PIV dc'd, pressure dressing applied. Pt dc'd in stable condition. documented in this encounter [facility] 04-16-2024 History of Presen t illness Narrative Pt here for 2g IV magnesium as scheduled. Mg level 1.6. PIV initiated to RFA. Brisk blood return noted, flushes with ease. NS started at KVO. Magnesium infused over 2 hours. Pt tolerated well. PIV dc'd pressure dressing applied. Pt dc'd in stable ambulatory condition. V/u of future appointments. documented in this encounter [facility] 04-09-2024 History of Presen t illness Narrative Patient presents for Magnesium infusion. Mg 1.5 drawn 04/08/2024. Patient would like to do 2 grams of Mg. Today. PIV initiated to left forearm, brisk blood return noted. Flushed with NS. Magnesium infusing as ordered over 2 hours. Patient tolerated infusion well. PIV discontinued, gauze secured with coban in place. Calendar provided. Discharged in stable condition. documented in this encounter [facility] 04-02-2024 History of Presen t illness Narrative Pt here for IV magnesium as scheduled. Mg level 1.7. PIV initiated to RFA. Blood return verified. Flushes with ease. NS started at KVO. 2g magnesium infused over 2 hours. Pt tolerated well. PIV dc'd. Pressure dressing applied. Pt dc'd in stable ambulatory condition. documented in this encounter [facility] 03-26-2024 History of Presen t illness Narrative Pt here for IV magnesium as scheduled for mg level of 1.6. PIV initiated to RFA. Brisk blood return noted, flushes with ease. NS started at KVO. Magnesium infused over 2 hours. Pt tolerated well. Line flushed. PIV dc'd- pressure dressing applied. Pt dc'd in stable ambulatory condition. documented in this encounter [facility] 03-19-2024 History of Presen t illness Narrative Pt here for IV magnesium for mg level 1.6. PIV initiated to RFA after several attempts. Brisk blood return noted, flushes with ease. NS started at KVO. Magnesium infused over 2 hours. Pt tolerated well. PIV dc'd- pressure dressing applied. Pt dc'd in stable ambulatory condition. V/u of future appts. documented in this encounter [facility] 03-12-2024 History of Presen t illness Narrative Pt here for Mg infusion. Mg 1.6, 2GM Mg indicated per order. PIV initiated to RFA, brisk blood return noted, flushes without difficulty. 2gm Mg infused over 2 hours, pt tolerated well. PIV discontinued, pressure dressing applied. Calendar provided, pt discharged ambulatory in stable condition. documented in this encounter [facility] 04-15-2024 History of Presen t illness Narrative Subjective Patient ID: Adore Wolff is a 83 y.o. female. Adore presents for a [id number] visit to try to get pads for [...] Exam Vitals reviewed. Exam conducted with a home health care coordinator present (). Constitutional: Appearance: She is morbidly [...] make a referral. documented in this encounter [facility] 02-25-2024 History of Presen t illness Narrative Patient and were updated on normal magnesium level of 1.9. She is still very bruised on her arms and wishes to continue to hold infusions at this time since level is normal to allow her arms/veins time to be less bruised. She will continue to have weekly lab checks completed. documented in this encounter [facility] 02-20-2024 History of Presen t illness Narrative Received call back from Dr. Munoz's office. Instructed to hold magnesium infusions at this time. Will update patient and have pt continue to have labs checked to monitor. documented in this encounter [facility] 02-19-2024 History of Presen t illness Narrative Pt magnesium level 1.9. called to notify patient and pt states her arms are still very bruised up from multiple IV attempts. Pt request to skip infusion this week to give her veins/arms a break since her mg level is wnl. Pt will recheck lab next week. documented in this encounter [facility] 02-13-2024 History of Presen t [...] stable ambulatory condition. documented in this encounter [facility] 02-06-2024 History of Presen t illness Narrative Pt here for 2g IV magnesium as scheduled for mg level 1.8. Tolerating infusions well. PIV initiated to RFA. Brisk blood return noted, flushes with ease. NS started at KVO. Magnesium infused over 2 hours. Pt tolerated well. PIV dc'd, pressure dressing applied. Pt dc'd in stable ambulatory condition. documented in this encounter [facility] 01-30-2024 History of Presen t illness Narrative Patient is here for 2g IV magnesium as scheduled. Mg level 1.8. PIV initiated, blood return noted, flushes with ease. NS started at KVO. Magnesium infused over 2 hours. Line flushed. Pt tolerated well. PIV dc'd, pressure dressing applied. Pt dc'd in stable ambulatory condition with spouse. documented in this encounter [facility] 01-23-2024 History of Presen t illness Narrative Patient is here for 2g IV magnesium as scheduled. Mg level 1.7. PIV initiated on second attempt, blood return noted, flushes with ease. NS started at KVO. Magnesium infused over 2 hours. Line flushed. Pt tolerated well. PIV dc'd, pressure dressing applied. Pt dc'd in stable ambulatory condition with spouse. documented in this encounter [facility] 01-16-2024 History of Presen t [...] of upcoming appointments. documented in this encounter [facility] 01-09-2024 History of Presen t illness Narrative Pt here for 2g IV magnesium for mg level of 1.7. Tolerating infusions well. PIV initiated to RFA. Brisk blood return, flushes with ease. NS started at KVO. Magnesium infused over 2 hours. Pt tolerated well. PIV flushed and dc'd. Pressure dressing applied. Dc'd in stable condition. documented in this encounter [facility] 01-08-2024 History of Presen t [...] Do you have a durable power of real estate attorney?: Yes Cognitive Screening Do you have [...] year (around 01/08/2025). documented in this encounter [facility] 01-02-2024 History of Presen t illness Narrative Patient is here for 2g IV magnesium as scheduled. Mg level 1.7. PIV initiated on third attempt, blood return noted, flushes with ease. NS started at KVO. Magnesium infused over 2 hours. Line flushed. Pt tolerated well. PIV dc'd, pressure dressing applied. Pt dc'd in stable ambulatory condition with spouse. documented in this encounter [facility] 12-26-2023 History of Presen t illness Narrative Pt here for 2g IV magnesium infusion as scheduled. Mg level 1.6. Tolerating infusions well. PIV initiated to RFA. Brisk blood return noted, flushes with ease. NS started at KVO. Magnesium infused over 2 hours. Pt tolerated well. Line flushed. PIV dc'd. Pressure dressing applied. Pt v/u of future appointments. documented in this encounter [facility] 12-19-2023 History of Presen t illness Narrative Pt here for 4g IV magnesium infusion as scheduled. Mg level 1.5. Tolerating infusions well. PIV initiated to LFA. Brisk blood return noted, flushes with ease. NS started at KVO. Magnesium infused over 4 hours. Pt tolerated well. Line flushed. PIV dc'd. Pressure dressing applied. Pt v/u of future appointments. documented in this encounter [facility] 12-12-2023 History of Presen t illness Narrative Patient is here for 2g IV magnesium as scheduled. Mg level 1.7. PIV initiated blood return noted, flushes with ease. NS started at KVO. Magnesium infused over 2 hours. Line flushed. Pt tolerated well. PIV dc'd, pressure dressing applied. Pt dc'd in stable ambulatory condition with spouse. documented in this encounter [facility] 12-05-2023 History of Presen t illness Narrative Patient here for 2g IV magnesium as scheduled. Mg level 1.7. PIV initiated blood return noted, flushes with ease. NS started at KVO. Magnesium infused over 2 hours. Line flushed. Pt tolerated well. PIV dc'd, pressure dressing applied. Pt dc'd in stable ambulatory condition with spouse. documented in this encounter [facility] 12-04-2023 Miscellaneous Notes Patient called and these are both covered by insurance and she would like these sent in instead of what the alternative was documented in this encounter [facility] 12-04-2023 Telephone encounter Note Patient called and these are both covered by insurance and she would like these sent in instead of what the alternative was [facility] 11-28-2023 History of Presen t illness Narrative Patient here for 2g IV magnesium as scheduled. Mg level 1.8. PIV initiated to LFA Brisk blood return noted, flushes with ease. NS started at KVO. Magnesium infused over 2 hours. Line flushed. Pt tolerated well. PIV dc'd, pressure dressing applied. Pt dc'd in stable ambulatory condition with spouse. [facility] History of Presen t illness Narrative Subjective Patient ID: Adore Wolff is a 83 y.o. female. Adore presents for recheck of multiple problems. She is currently getting a series of magnesium infusions due to critically low magnesium level. She was asymptomatic. She got her labs done today at [facility]. She has information regarding her formulary. Lantus no longer covered but Toujeo or Tresiba are. Also Humalog quick pen is not covered and there are 2 alternatives but 1 is a vial. She would like the pen due to ease of use. She checks her blood sugars 2 times a day. She did not bring in her logs for review. The following portions of the patient's history were reviewed and updated as appropriate: allergies, current medications, past family history, past medical history, past social history, past surgical history, problem list, and medication reconciliation was completed including current medication and post discharge medication. Review of Systems Objective Physical Exam Exam conducted with a home health care coordinator present (). Constitutional: Appearance: She is morbidly obese. HENT: Head: Normocephalic. Cardiovascular: Rate and Rhythm: Normal rate and regular rhythm. Pulses: Normal pulses. Heart sounds: Normal heart sounds. No murmur heard. Pulmonary: Effort: Pulmonary effort is normal. No respiratory distress. Breath sounds: Normal breath sounds. No wheezing, rhonchi or rales. Musculoskeletal: Cervical back: Neck supple. Lymphadenopathy: Cervical: No cervical adenopathy. Neurological: General: No focal deficit present. Mental Status: She is alert and oriented to person, place, and time. Gait: Gait abnormal (Ambulates with a seated walker). Psychiatric: Attention and Perception: Attention normal. Mood and Affect: Mood and affect normal. Speech: Speech normal. Behavior: Behavior normal. Behavior is cooperative. Thought Content: Thought content normal. Cognition and Memory: Cognition normal. Judgment: Judgment normal. Assessment/Plan Adore was seen today for follow-up. 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) Blood pressure essentially at goal. Await CMP results. Await A1c and ACR results. Mixed hyperlipidemia Await lipid results Hypomagnesemia Managed by Nephrology. 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 Continue omeprazole. PPI can also lead to low magnesium. Morbid obesity ([facility] [place]) She is morbidly obese. She would benefit from weight loss. She is severely limited in physical activity due to multiple physical conditions. Other orders - baclofen (LIORESAL) 10 mg tablet; Take 1 tablet (10 mg total) by mouth nightly. - insulin lispro-aabc (LYUMJEV KWIKPEN U-100 INSULIN) 100 unit/mL insulin pen; Inject 6 Units under the skin in the morning and 6 Units in the evening. Inject after meals. - insulin glargine 300 unit/mL (TOUJEO SOLOSTAR U-300 INSULIN) 300 unit/mL (1.5 mL) insulin pen; Inject 46 Units under the skin nightly. [facility] History of Presen t illness Narrative [...] Treatment calendar provided. [facility] Note Continue statin [facility] 11-19-2023 Note Hypertension is elev ated in office today was 192/86 and repeat b/p improved 158/80 Typically b/p is 122-150/60-80 at home and at other physician offices. Continue all meds ramipril, coreg [facility] 11-19-2023 Note Coronary artery dise ase is stable Continue GDMT- ASA, lipitor, coreg continue risk factor modifications- heart healthy diet, regular exercise as tolerated and continue all medications. [facility] 11-19-2023 Note Patient here for 1 y ear follow up CAD, hypertension, and venous insufficiency. Had labs a week or so ago for aeronautical test engineer and says she's in the process of [...] All other systems reviewed and are negative. [facility] 11-19-2023 Note [facility] CARDIOLOGY PROGR ESS NOTE [...] labs a week or so ago for aeronautical test engineer and says she's in the process of [...] 2.05, BUN 64, (more content not included)... [facility] 08-23-2023 Evaluation note Encounter Date Diagnosis Assessment [...] magnesium diet and provide information about it. [employer] Other 03-16-2023 NoteCONSULTATION CONSULTATION DATE: 01/25/2023 HISTORY: [...] and to talk with Dr. Munoz, their aeronautical test engineer, to confirm that this was acceptable, considering her stage 3 kidney disease. Other than that, we will see her in three months' time at the clinic, unless otherwise indicated. Patient and agree with this plan.[facility] 01-25-2023 Evaluation note* Encounter Date [...] magnesium diet and provide information about it. [employer] [facility] Chief Complaint: Patient being seen via telephone call for 6 mo follow up hypertension, CAD, and CKD. She denies chest pain and increased SOB with exertion. C/o increased LE edema but denies weight gain. Says her aeronautical test engineer Dr. Munoz advised her to call him [...] enzyme inhibitor/receptor micki. 4. Follow up with [facility] Cardiology in the next 2 to 3 months. 5. Follow up with Dr. Clark as scheduled. PROCEDURES: Bilateral selective coronary angiography [...] creatinine and electrolytes; she follows with her aeronautical test engineer Leg swelling is likely related to venous [...] was initiated by the patient and conducted nel-uoyk-uq-face with use of audio-only real time telephone communication between patient and provider for a virtual visit. Verbal consent to provide and bill for this service was obtained on 12/06/2022. No signature was obtained due to the COVID-19 pandemic. Moe Parham MD, MPH, [facility], [facility], [facility] Interventional Cardiology Pager Email: [email or web address] NoteCONSULTATION CONSULTATION DATE: 10/26/2022 HISTORY OF PRESENT ILLNESS: This is a very pleasant, 82-year-old female who presents with her for a three month follow up. Today, she reports 0/10 pain and is overall doing well. At her last appointment on 08/02/2022, we had switched her medications from Perkins to tramadol extended release 100 mg per day, which she feels is helping very much. It is lasting for her better than the Perkins. She is also on Lyrica 75 mg [...] indicated, and patient agrees with this plan.[facility] [id number] NoteCONSULTATION CONSULTATION DATE: 08/02/2022 HISTORY OF PRESENT ILLNESS: This is a pleasant, 81-year-old female, accompanied by her , returning to the clinic for a three month follow up for chronic lower back pain. She was last seen on 04/25/[address] Stern which, at that time, her Perkins was decreased to 5/325 daily p.r.n., which [...] increased to 100 mg extended release daily. Perkins will be discontinued. Education was given regarding use of the menthol heat rub with Voltaren gel and heat application to her back. Vitamin and nutrition importance was discussed. Patient will be seen back in the clinic in three months' time, unless otherwise indicated, and patient agrees to this.[facility] [id number] Evaluation note* Encounter Date Diagnosis Assessment Notes [...] any recent gout flare. She takes allopurinol. [employer] Other 06-22-2022 Evaluation note* Encounter Date Diagnosis Assessment Notes Treatment Notes Treatment Clinical Notes Apr, Hypertensive chronic kidney disease with stage 1 through stage 4 chronic kidney disease, or unspecified chronic kidney disease (ICD-10 - I12.9) [employer] Other 06-14-2022 NoteCONSULTATION CONSULTATION DATE: 04/25/2022 CHIEF [...] 4/10. She is managing the pain with Perkins 5/325 one table daily and tramadol 50 [...] the patient's pain medication which would be Perkins 5/325 one tablet daily and tramadol 50 [...] earlier should she need us. CC: Fernie Clrak D.O. [facility] Signed and Approved by: DR LUISA STERN . 05/02/2022 08:52:00[facility]05-26-2022 Evaluation note* Encounter Date Diagnosis Assessment [...] any recent gout flare. She takes allopurinol. [employer] Other 05-19-2022 NoteCONSULTATION CONSULTATION DATE: 03/30/2022 This [...] She was given a 14-day prescription of Perkins 5/325 b.i.d. to help with the acuity of her post-procedure pain. Today she reports the Perkins is gone and she is back on [...] and rather we will maintain her on Perkins 5/325 b.i.d. which proved to be the [...] and Approved by: JONNY CAMPUZANO . 04/03/2022 15:07:00[facility]02-15-2022 Evaluation note* Encounter Date Diagnosis Assessment [...] any recent gout flare. She takes allopurinol. [employer] Other Evaluation noteNo InformationNort [employer] Other Evaluation noteNo assessment information available [facility] Work Phone: Evaluation note* Diagnosis Onset Date Resolution Status Anemia of renal disease acut e CKD (chronic kidney disease) stage 3, GFR 30-59 ml/min acute [id number] acute Hyperuricemia acute Hypomagnesemia acute Secondary hyperparathyroidism acute Type 2 diabetes mellitus wit h diabetic chronic kidney disease acute [facility] Work Phone: Evaluation note* Diagnosis Hypomagnesemia- Primary Disorders of magnesium metabolism [facility] Diagnosis Hypomagnesemia- Primary Disorders of magnesium metabolism [facility]* Diagnosis 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 ([facility] Primary Morbid obesity ([facility]) Morbid obesity [facility] Diagnosis 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 ([facility] Primary Morbid obesity ([facility]) Morbid obesity [facility]* Diagnosis Lumbar stenosis with neurogenic claudication- Primary [facility] Diagnosis Lumbar stenosis with neurogenic claudication documented in this encounter [facility]* Diagnosis Hypomagnesemia- Primary Disorders of magnesium metabolism documented in this encounter [facility]* Diagnosis Hypomagnesemia- Primary Disorders of magnesium metabolism documented in this encounter [facility]* Diagnosis Hypomagnesemia- Primary Disorders of magnesium metabolism [facility]* Diagnosis Mixed hyperlipidemia- Primary Type 2 diabetes mellitus with stage 3b chronic kidney disease, with long-term current use of insulin (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 Morbid obesity ([facility]) Morbid obesity Chronic obstructive pulmonary disease, unspecified COPD type ([facility]) documented [facility] encounter [facility] Diagnosis Hypomagnesemia- Primary Disorders of magnesium metabolism documented in this encounter [facility]* Diagnosis Hypomagnesemia- Primary Disorders of magnesium metabolism documented in this encounter [facility] Diagnosis Hypomagnesemia- Primary Disorders of magnesium metabolism documented in this encounter [facility]* Diagnosis Hypomagnesemia- Primary Disorders of magnesium metabolism documented in this encounter [facility]* Diagnosis Hypomagnesemia- Primary Disorders of magnesium metabolism documented in this encounter [facility]* Diagnosis Acute cystitis with hematuria- Primary Essential hypertension Unspecified essential hypertension Acute right-sided low back pain without sciatica Nausea Nausea alone Anxiety Anxiety state, unspecified documented in this encounter [facility]* Diagnosis Medicare annual wellness visit, subsequent- Primary Screening for depression documented in this encounter [facility]* Diagnosis Constipation, unspecified constipation type- Primary Essential hypertension Unspecified essential hypertension Dysuria History of UTI History of sepsis Personal history of other infectious and parasitic disease Chronic low back pain without sciatica, unspecified back pain laterality documented in this encounter [facility]* Diagnosis 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 ([facility] Primary Dysuria Acute rhinitis Acute nasopharyngitis (common cold) Morbid obesity ([facility]) Morbid obesity Incontinence of feces with fecal urgency documented in this encounter [facility]* Diagnosis 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 ([facility] Primary documented in this encounter [facility]* Diagnosis Hypomagnesemia- Primary Disorders of magnesium metabolism documented in this encounter [facility]* Diagnosis Hypomagnesemia- Primary Disorders of magnesium metabolism documented in this encounter [facility]* Diagnosis Hypomagnesemia- Primary Disorders of magnesium metabolism documented in this encounter [facility]* Diagnosis Urinary incontinence, unspecified type- Primary Abnormality of gait and mobility documented in this encounter [facility]* Diagnosis Hypomagnesemia- Primary Disorders of magnesium metabolism documented in this encounter [facility]* Diagnosis Hypomagnesemia- Primary Disorders of magnesium metabolism [facility] Diagnosis 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 ([facility] Primary Morbid obesity ([facility]) Morbid obesity [facility] Diagnosis Paresthesia of right lower extremity- Primary Ross's esophagus with dysplasia [facility] Diagnosis Hypomagnesemia- Primary Disorders of magnesium metabolism [facility] Diagnosis Lumbar stenosis with neurogenic claudication [facility] Diagnosis Lumbar stenosis with neurogenic claudication documented in this encounter [facility] N[facility] - Reported* Type Description Date [...] IN LOWER BACK Hospitalization History see above [facility] Other [employer] general Narrative - Reported* Type Description Date [...] HEART CATH 03/30/2021 Hospitalization History see above [facility] Other [employer] [facility] general Narrative - Reported* Type Description Date [...] IN LOWER BACK Hospitalization History see above [facility] Other InstructionsNot on filedocumented in this encounter [...] kidney disease) stage 3, GFR 30-59 ml/min [id number] Hyperuricemia Hypomagnesemia Secondary hyperparathyroidism Type 2 diabetes mellitus with diabetic chronic kidney disease Chief Complaint Admit Date Unknown November 20, 2024 4: 20am Additional Source Comments INFORMATION SOURCE (unrecogn ized section and content) DATE CREATED AUTHOR 04/06/[address] [facility] DATE CREATED AUTHOR AUTHOR'S ORGANIZ ATION 05/12/2022 [facility] DATE CREATED AUTHOR AUTHOR'S ORGANIZ ATION 03/15/2023 [facility] DATE CREATED AUTHOR AUTHOR'S ORGANIZ ATION 11/19/2023 [facility] DATE CREATED AUTHOR AUTHOR'S ORGANIZ ATION 05/31/2024 [facility] DATE CREATED AUTHOR AUTHOR'S ORGANIZ ATION 06/03/2024 [facility] DATE CREATED AUTHOR AUTHOR'S ORGANIZ ATION 11/07/2024 [facility] DATE CREATED AUTHOR AUTHOR'S ORGANIZ ATION 11/23/2024 [facility] DATE CREATED AUTHOR AUTHOR'S ORGANIZ ATION 11/26/2024 [facility] REASON FOR VISIT (unrecogniz ed section and content) Reason Comments Med Refill Reason Comments Outpatient Infusion IV MG Reason Onset Date Comments orders for patient to be sent out to hospital fo r evaluation 12/01/2024 Reason Onset Date Comments EMG order 12/18/2024 Reason Onset Date Comments Med Refill 12/19/2024 Reason Comments Outpatient Infusion Magnesium Reason Comments Outpatient Infusion magnesium Reason Comments Follow-up 6 month Reason Onset Date Comments Med Refill 12/04/2023 Reason Onset Date Comments Med Refill 12/11/2023 Reason Onset Date Comments Med Refill 04/29/2024 Reason Comments Outpatient Infusion Magnesium 2 grams Reason Comments Outpatient Infusion Magnesium Reason Comments medicare annual wellness Reason Comments Outpatient Infusion Magnesium Infusion Reason Comments Outpatient Infusion IV magnesium Reason Comments Outpatient Infusion IV Mg Reason Comments Face to Face for incont supplies Reason Comments Outpatient Infusion IV Magnesium Reason Onset Date Comments [facility] NEW PATIENT 09/10/2024 Reason Onset Date Comments Med Refill 12/29/2024 Care Teams (unrecognized sec tion and content) Team Status: Active Member Role Status Dates Fernie Clark DO Primary Care Provider Active Team Status: Inactive Member Role Status Dates Fernie Clark DO Primary Care Provider Active Start: November 20, 2024 End: November 20, 2024 Gaetano Viera DO Attending Provider Active S tart: November 20, 2024 End: November 20, 2024 Team Status: Active Member Role Status Dates Fernie Clark DO Primary Care Provide r, Attending Provider Active Start: April 28, 2024 Team Status: Inactive Member Role Status Dates Fernie Clark DO Primary Care Provider Active Start: May 01, 2024 End: May 01, 2024 iGa Munoz MD Attending Provider Active Start : May 01, 2024 End: May 01, 2024 Team Status: Inactive Member Role Status Dates Fernie Roxann Primary Care Provider Active Gia Munoz MD Attending Provider Active Telecasting Technician Relationship Specialty Start Date End Date Fernie Clark DO [address], [place] [address] PCP - General Family Medicine 05/09/17 Flori Mon [facility] Nurse - [employer] 06/26/24 Telecasting Technician Relationship Specialty Start Date End Date Fernie Clark [address] [place] [address] PCP - General Family Medicine 05/09/17 Flori Mon [facility] Nurse - [employer] 06/26/24 Telecasting Technician Relationship Specialty Start Date End Date Fernie Clark [address] [place] [address] PCP - General Family Medicine 05/09/17 Flori Mon [facility] Nurse - [employer] 06/26/24 Telecasting Technician Relationship Specialty Start Date End Date Fernie Clark [address] [place] [address] PCP - General Family Medicine 05/09/17 Flori Mon [facility] Nurse - [employer] 06/26/24 Telecasting Technician Relationship Specialty Start Date End Date Fernie Clark [address] [place] [address] PCP - General Family Medicine 05/09/17 Flori Mon [facility] Nurse - [employer] 06/26/24 Telecasting Technician Relationship Specialty Start Date End Date Fernie Clark [address], [place] [address] PCP - General Family Medicine 05/09/17 Clari Alasandro [facility] Nurse - [employer] 11/17/24 Telecasting Technician Relationship Specialty Start Date End Date Fernie Clark [address], [place] [address] PCP - General Family Medicine 05/09/17 Clari Igor [facility] Nurse - [employer] 11/17/24 Telecasting Technician Relationship Specialty Start Date End Date Fernie Clark [address], [place] [address] PCP - General Family Medicine 05/09/17 Clari Alasandro [facility] Nurse - [employer] 11/17/24 Telecasting Technician Relationship Specialty Start Date End Date SubhapoornimaFernie [address], [place] [address] PCP - General Family Medicine 05/09/17 Clari Alasandro [facility] Nurse - [employer] 11/17/24 Telecasting Technician Relationship Specialty Start Date End Date Tracyangel luisFernie [address], [place] [address] PCP - General Family Medicine 05/09/17 Clari Costa [facility] Nurse Suresh Delgado 11/17/24 Telecasting Technician Relationship Specialty Start Date End Date RoxannFernie [address] [place] [address] PCP - General Family Medicine 05/09/17 Telecasting Technician Relationship Specialty Start Date End Date Fernie Clark Jamarcus [address] [place] [address] PCP - General Family Medicine 05/09/17 Telecasting Technician Relationship Specialty Start Date End Date Fernie Clark DO [address] [place] [address] PCP - General Family Medicine 05/09/17 Telecasting Technician Relationship Specialty Start Date End Date Fernie Clark JamarcusDO [address] [place] [address] PCP - General Family Medicine 05/09/17 Telecasting Technician Relationship Specialty Start Date End Date Fernie Clark JamarcusDO [address] [place] [address] PCP - General Family Medicine 05/09/17 Telecasting Technician Relationship Specialty Start Date End Date Fernie Clark DO [address] [place] [address] PCP - General Family Medicine 05/09/17 Telecasting Technician Relationship Specialty Start Date End Date Fernie Clark DO [address], [place] [address] PCP - General Family Medicine 05/09/17 Telecasting Technician Relationship Specialty Start Date End Date Fernie Clark DO [address], [place] [address] PCP - General Family Medicine 05/09/17 Telecasting Technician Relationship Specialty Start Date End Date RoxannFernie DO [address] [place] [address] PCP - General Family Medicine 05/09/17 Telecasting Technician Relationship Specialty Start Date End Date TracymonicaFernie noguera DO [address], [place] [address] PCP - General Family Medicine 05/09/17 Telecasting Technician Relationship Specialty Start Date End Date TracymonicaFernie noguera DO [address] [place] [address] PCP - General Family Medicine 05/09/17 Telecasting Technician Relationship Specialty Start Date End Date TracymonicaFernie noguera DO [address] [place] [address] PCP - General Family Medicine 05/09/17 Jeni Coronel [facility] Nurse [facility] 04/23/24 Telecasting Technician Relationship Specialty Start Date End Date SubhaFernie noguera DO [address] [place] [address] PCP - General Family Medicine 05/09/17 Telecasting Technician Relationship Specialty Start Date End Date Fernie Clark DO [address], [place] [address] PCP - General Family Medicine 05/09/17 Telecasting Technician Relationship Specialty Start Date End Date Fernie Clark DO [address], [place] [address] PCP - General Family Medicine 05/09/17 Jeni Coronel [facility] Nurse - [employer] 04/23/24 Telecasting Technician Relationship Specialty Start Date End Date Fernie Clark DO [address], [place] [address] PCP - General Family Medicine 05/09/17 Jeni Coronel [facility] Nurse - [employer] 04/23/24 Telecasting Technician Relationship Specialty Start Date End Date Fernie Clark DO [address], [place] [address] PCP - General Family Medicine 05/09/17 Jeni Coronel [facility] Nurse - [employer] 04/23/24 Telecasting Technician Relationship Specialty Start Date End Date Fernie Clark DO [address], [place] [address] PCP - General Family Medicine 05/09/17 Telecasting Technician Relationship Specialty Start Date End Date Fernie Clark DO [address] [place] [address] PCP - General Family Medicine 05/09/17 Clari Alandro [facility] Nurse - [employer] 11/17/24 Telecasting Technician Relationship Specialty Start Date End Date Fernie Clark [address], [place] [address] PCP - General Family Medicine 05/09/17 Clarikumar Collierndro [facility] Nurse - [employer] 11/17/24 Telecasting Technician Relationship Specialty Start Date End Date RoxannFernie [address], [place] [address] PCP - General Family Medicine 05/09/17 Jeni Coronel [facility] Nurse - [employer] 04/23/24 Telecasting Technician Relationship Specialty Start Date End Date Tracyangel luis Fernie G, [address], [place] [address] PCP - General Family Medicine 05/09/17 Jeni Coronel [facility] Nurse - [employer] 04/23/24 Telecasting Technician Relationship Specialty Start Date End Date Roxann Fernie G, [address], [place] [address] PCP - General Family Medicine 05/09/17 Jeni Coronel [facility] Nurse - [employer] 04/23/24 Telecasting Technician Relationship Specialty Start Date End Date RoxannFernie [address], [place] [address] PCP - General Family Medicine 05/09/17 Jeni Coronel [facility] Nurse - [employer] 04/23/24 Telecasting Technician Relationship Specialty Start Date End Date Fernie Clark DO [address] [place] [address] PCP - General Family Medicine 05/09/17 Jeni Coronel [facility] Nurse - [employer] 04/23/24 Telecasting Technician Relationship Specialty Start Date End Date Fernie Clark DO [address] [place] [address] PCP - General Family Medicine 05/09/17 Telecasting Technician Relationship Specialty Start Date End Date Fernie Clark DO [address] [place] [address] PCP - General Family Medicine 05/09/17 Jeni Coronel [facility] Nurse - [employer] 04/23/24 Telecasting Technician Relationship Specialty Start Date End Date Fernie Clark DO [address] [place] [address] PCP - General Family Medicine 05/09/17 Telecasting Technician Relationship Specialty Start Date End Date Fernie Clark DO [address] [place] [address] PCP - General Family Medicine 05/09/17 Flori Mon [facility] Nurse - [employer] 06/26/24 Telecasting Technician Relationship Specialty Start Date End Date Fernie Clark DO [address] [place] [address] PCP - General Family Medicine 05/09/17 Flori Mon [facility] Nurse - [employer] 06/26/24 Telecasting Technician Relationship Specialty Start Date End Date Frenie Clark Jamarcus [address], [place] [address] PCP - General Family Medicine 05/09/17 Flori Mon [facility] Nurse - [employer] 06/26/24 Telecasting Technician Relationship Specialty Start Date End Date Fernie Clark DO [address], [place] [address] PCP - General Family Medicine 05/09/17 Flori Mon [facility] Nurse - [employer] 06/26/24 Telecasting Technician Relationship Specialty Start Date End Date Fernie Clark DO [address], [place] [address] PCP - General Family Medicine 05/09/17 Flori Mon [facility] Nurse - [employer] 06/26/24 Telecasting Technician Relationship Specialty Start Date End Date Fernie Clark DO [address], [place] [address] PCP - General Family Medicine 05/09/17 Flori Mon [facility] Nurse - [employer] 06/26/24 Telecasting Technician Relationship Specialty Start Date End Date Fernie Clark DO [address], [place] [address] PCP - General Family Medicine 05/09/17 Flori Mon [facility] Nurse - [employer] 06/26/24 Telecasting Technician Relationship Specialty Start Date End Date Fernie Clark DO [address], [place] [address] PCP - General Family Medicine 05/09/17 Flori Mon [facility] Nurse - [employer] 06/26/24 Telecasting Technician Relationship Specialty Start Date End Date Fernie Clark DO [address], [place] [address] PCP - General Family Medicine 05/09/17 Flori Mon [facility] Nurse - [employer] 06/26/24 Telecasting Technician Relationship Specialty Start Date End Date Fernie Clark DO [address], [place] [address] PCP - General Family Medicine 05/09/17 Flori Mon [facility] Nurse - [employer] 06/26/24 Goals (unrecognized section and content) Goals [...] BE BASED ON THE PRIMARY CLINICAL RECORDS. [facility] [employer] [facility]. provides no warranty or guarantee of the accuracy or completeness of information in this document.
[2025-01-02 05:07] LABS: Basophils Absolute Auto 0.1 10^3/uL (0.0-0.1); Basophils Percent Auto 0.8 % (0.2-2.0); Eosinophils Absolute Auto 0.3 10^3/uL (0.0-0.7); Hematocrit 31.9 % (36.0-48.0); Immature Granulocytes Abs Auto 0.04 10^3/uL (0.00-0.03); Immature Granulocytes Pct Auto 0.6 % (0.0-0.5); Lymphocytes Absolute Auto 1.5 10^3/uL (1.2-3.8); Lymphocytes Percent Auto 23.6 % (20.5-60.0); Mean Corpuscular HGB Conc 31.3 g/dL (29.9-35.2); Mean Corpuscular Hemoglobin 29.5 pg (26.7-34.0); Mean Corpuscular Volume 94.1 fL (81.0-99.0); Mean Platelet Volume 10.8 fL (9.5-13.5); Monocytes Absolute Auto 0.7 10^3/uL (0.3-0.8); Monocytes Percent Auto 11.8 % (1.7-12.0); Neutrophils Absolute Auto 3.7 10^3/uL (1.4-6.5); Neutrophils Percent Auto 59.2 % (43.0-75.0); Platelet Count 173 10^3/uL (150-450); Red Blood Count 3.39 10^6/uL (4.20-5.40); Red Cell Distribution Width 15.1 % (11.0-15.0); White Blood Count 6.2 10^3/uL (4.0-11.0)
[2025-01-02] MEDS: MORPHINE SULFATE 2 MG/ML SYRINGE IV (05:21)
[2025-01-02] MEDS: ONDANSETRON PF 4 MG/2 ML VIAL IV (05:21)
[2025-01-02] MEDS: HYDRALAZINE HCL 20 MG/ML VIAL 10 MG IVP ×2 (05:21→09:58)
[2025-01-02] MEDS: ASPIRIN 81 MG TAB.CHEW 162 MG PO (05:21)
[2025-01-02 05:22] LABS: INR 1.07; Prothrombin Time 11.3 sec (9.0-11.6)
[2025-01-02 05:29] LABS: Alanine Aminotransferase 19 U/L (14-59); Albumin Globulin Ratio 0.5; Albumin Level 1.9 g/dL (3.4-5.0); Alkaline Phosphatase 100 U/L (46-116); Anion Gap 8.8; Aspartate Amino Transferase 21 U/L (15-37); BUN Creatinine Ratio 20.6; Bilirubin Total 0.3 mg/dL (0.2-1.0); Calcium 8.8 mg/dL (8.5-10.1); Carbon Dioxide 29.5 mmol/L (21.0-32.0); Chloride 108 mmol/L (98-107); Estimated GFR (African America 47 (>=60 mL/min/1.73m^2); Estimated GFR (Non-African Ame 39 (>=60 mL/min/1.73m^2); Globulin 3.6 g/dL; Glucose 129 mg/dL (74-106); Potassium 4.3 mmol/L (3.5-5.1); Sodium 142 mmol/L (136-145); Total Protein 5.5 g/dL (6.4-8.2); Troponin I High Sensitivity 33.8 pg/mL (4.0-51.3)
[2025-01-02 06:48] LABS: Troponin I High Sensitivity 35.2 pg/mL (4.0-51.3)
[2025-01-02] MEDS: PROCHLORPERAZINE 10 MG/2 ML VIAL 5 MG IV (06:54)
[2025-01-02] MEDS: HYDROCODONE/ACET 5-325 MG TABLET 1 TAB PO (07:13)
--- NOTE | 2025-01-02 08:04 | PC.NURSE ---
Med list reviewed via phone with nurse Martinez from [facility], [facility] med rec. completed at this time.
[2025-01-02] MEDS: HEPARIN SODIUM (PORCINE) 5,000 UNIT/ML VIAL 5000 UNIT SUBQ (09:04)
--- NOTE | 2025-01-02 10:20 | SWNOTE1 ---
SW did reach out to Olga at [facility] and pt is still there skilled.
[2025-01-02 12:22] LABS: Troponin I High Sensitivity 31.4 pg/mL (4.0-51.3)
--- OUTSIDE RECORDS SUMMARY | 2025-01-02 12:32 | XMS_ITS | CCD ---
Author Organization [facility] Care Team Providers Care Drapery Sewer Hand Name Role Phone ELTAHAWY, EHAB A Attending [...] Primary Care Unavailable STERN ., DR LUISA Pgae Admitting Unavailable TAMMY, GIA Admitting Unavailable TAMMY, [...] Care Unavailable Furlong DOFernie Primary Care Provider [phone] Kirsten RAND, Christian Rodríguez Attending Unavailable Kirsten [...] Unavailable FURLONG, FERNIE Ricketts Referring Unavailable FURLONG, EFRNIE Ricketts Primary Care Unavailable FURLONG, FERNIE Ricketts [...] Unavailable FURLONG, FERNIE Ricketts Referring Unavailable FURLONG, EFRNIE Ricketts Primary Care Unavailable TAMMY, GIA Referring Unavailable FURLONG, FERNIE Ricketts Primary Care Unavailable FURLONG, FERNIE Ricketts Referring Unavailable FURLONG, EFRNIE Ricketts Primary Care Unavailable TAMMY, GIA Referring [...] Adhesive Tape Substance Allergy 04-24-20 13 [facility] Povidone-Iodine (1 source) Povidone-Iodine Drug Allergy 04-24-20 13 [facility] Sulfonamides (antibiotic) (1 source) Sulfonamides (Antibiotic) Drug Allergy 04-24-20 13 [facility] Tetracyclines (antibiotic) (1 source) Tetracyclines Drug Allergy 04-24-20 13 [facility] (20 sources) Povidone-Iodine; Translations: [POVIDONE-IODINE] Drug Allergy 11-25-19 15 [facility] (10 sources) Sulfonamides (Antibiotic) Propensity to adverse reactions [employer] Other (13 sources) Tetracycline Drug Allergy 11-16-19 24 [facility] (12 sources) Adhesive 1 x6yd Drug allergy 11-08-20 23 [facility] (12 sources) Amlodipine & Diet Manage Prod Drug allergy 11-08-20 23 [facility] (2 sources) Povidone-Iodine; Translations: [Betadine] Drug Allergy 04-23-20 13 rash [facility] (20 sources) Contrast media; Translations: [RED DYE] Drug allergy (disorder) 05-04-20 17 [facility] (4 sources) Desonide Drug Allergy 04-23-20 13 [facility] (1 source) Sulfonamides (Antibiotic) Drug allergy (disorder) 04-23-20 13 [facility] (1 source) Tetracycline Drug Allergy 04-23-20 13 [facility] (20 sources) Adhesive agent; Translations: [ADHESIVE] Propensity to adverse reactions to drug (disorder) 11-25-19 15 Itching, Other (See Comments) [facility] (20 sources) Sulfonamides (Antibiotic); Translations: [SULFA (SULFONAMIDE ANTIBIOTICS)] Propensity to adverse reactions to drug (disorder) 11-25-19 15 [facility] (20 sources) Tetracyclines; Translations: [TETRACYCLINES] Propensity to adverse reactions to drug (disorder) 11-25-19 15 [facility] (20 sources) dilTIAZem; Translations: [DILTIAZEM] Drug Allergy 09-01-20 22 [facility] Repository (20 sources) Linagliptin; Translations: [LINAGLIPTIN] [...] as needed Orally TWICE A DAY Active [id number] 200 actuat albuterol 0.09 mg/actuat metered dose [...] 11-18-2024 blood-glucose meter (TRUE METRIX GLUCOSE METER) [facility] 1 Unit by miscellaneous route in the [...] April 30, 2024 11:00pm Fish,Bora,Flax Oils-Om3,6,9n o1 ([place] 3-6-9) 1,200 mg capsule (2 sources) Start: 05-01-2024 Fish,Bora,Flax Oils-Om3,6,9no1 ([place] 3-6-9) 1,200 mg capsule Active CAP PO April 30, 2024 11:00pm Start: 05-01-2024 Fish,Bora,Flax Oils-Om3,6,9no1 ([place] 3-6-9) 1,200 mg capsule Active CAP PO [...] disease, with long-term current use of insulin [place] Inject 46 Units under the skin in [...] For Her 50 + - Orally Active felqxxls-iern-YT-calci um &mins (THERAGRAN-M) 9 mg iron-400 mcg tablet (20 sources) fdtzslqd-zrbf-OK -calc ium &mins (THERAGRAN-M) 9 mg iron-400 mcg tablet Take 1 tablet by mouth in the morning. Active gpxusgga-kpon-RB -calcium &mins (THERAGRAN-M) 9 mg iron-400 mcg [...] 5 days. 20 tablet 12/10/2024 12/15/2024 Active [place] 3-6-9 Complex - (10 sources) [place] 3-6-9 Comp fawad - Orally Active omega-3 [...] 12/31/2024 Discontinued (Reorder) take 1 capsule by [facility] every twelve hours Lyrica 75 MG [...] morning. 05/27/2024 Discontinued (Therapy completed) estrogens, conjugated (chcf) 0.625 mg/ml vaginal cream (7 sources) Estrogen [...] disease (20 sources) Atherosclerotic heart disease of [place] coronary artery without angina pectoris; Translations: [Coronary [...] 09-01-2022 09-01-2022 Episodic Other aftercare (3 sources) snf (current) use of insulin; Translations: [FCI CURRENT USE OF INSULIN] Onset: 11-11-2022 Episodic [...] Cx Nom (U) ORGANISM: Escherichia coli (O:ESCCOL) [place] Count >100,000 Aerobic URBAN Charge (NMIC56) -- [...] RESISTANT TO ALL B-LACTAM DRUGS. PERFORMED BY: [address] [place] [address] PATHOLOGIST [employer]LECTION SYSTEMS WORKER MARIO PUTNAM M.D. Normal [facility] Comment on above: Performed By: #### C UU #### [address] [address] [facility] MAGNESIUMon 11-17-2024 Magnesium [Mass/Vol] 1.8 mg/dL Normal 1.8-2.6 [facility] Comment on above: Performed By: #### 1 9123-9 ####[facility] ([id number])[address] [place] [address] MAGNESIUMon 11-10-2024 Magnesium [Mass/Vol] 1.8 mg/dL Normal 1.8-2.6 [facility] Comment on above: Performed By: #### 1 9123-9 ####[facility] ([id number])[address] [place] [address] MAGNESIUMon 11-03-2024 Magnesium [Mass/Vol] 1.7 mg/dL Low 1.8-2.6 [facility] Comment on above: Performed By: #### 1 9123-9 ####[facility] ([id number])[address] [place] [address] MAGNESIUMon 10-27-2024 Magnesium [Mass/Vol] 1.8 mg/dL Normal 1.8-2.6 [facility] Comment on above: Performed By: #### 1 9123-9 ####[facility] ([id number])[address] [place] [address] MAGNESIUMon 10-20-2024 Magnesium [Mass/Vol] 1.9 mg/dL Normal 1.8-2.6 [facility] Comment on above: Performed By: #### 1 9123-9 ####[facility] ([id number])[address] [place] [address] MAGNESIUMon 10-13-2024 Magnesium [Mass/Vol] 1.8 mg/dL Normal 1.8-2.6 [facility] Comment on above: Performed By: #### 1 9123-9 ####[facility] ([id number])[address] [place] [address] MAGNESIUMon 10-06-2024 Magnesium [Mass/Vol] 1.7 mg/dL Low 1.8-2.6 [facility] Comment on above: Performed By: #### 1 9123-9 ####[facility] ([id number])[address] [place] [address] MAGNESIUMon 09-29-2024 Magnesium [Mass/Vol] 1.7 mg/dL Low 1.8-2.6 [facility] Comment on above: Performed By: #### 1 9123-9 ####[facility] ([id number])[address] [place] [address] Glucose Glucometer (BldC) [M ass/Vol]on 09-26-2024 Glucose [Mass/Vol] 154 mg/dL High 65-99 [facility] Surgical Pathologyon [address] [facility] Comment on above: Result Comment: [facility] [address] [place] [address] Surgical Pathology ConsultationPatient Name:ADORE WOLFF:1940 (Age: 83)Gender:FTaken:4Reported:4Physician(s):Daniel Guerrero MD ([phone])Copy To: Rec. #:[id number]: #[id number] Pathologic Diagnosis1. Duodenum, second portion, biopsy: Duodenal mucosa with no significant diagnostic abnormality. No evidence of celiac disease.2. Duodenum, bulb, biopsy: Ectopic gastric mucosa.3. Stomach, polypectomy: Fundic gland polyp.4. Esophagus, distal, biopsy: Junctional mucosa with no significant diagnostic abnormality. No evidence of intestinal metaplasia. Report Electronically Signed Outrg/4Rpaula Coto MDInterpretation [place] [address], License number: [id number].Clinical History Ross's esophagus.Gross Description1. Received in formalin labeled KUSS, second portion of duodenum are two light abbott soft tissue bits, 0.2 cm each. The specimen is filtered and entirely submitted in a single cassette. (1, ns, [id number],m3) DM.2. .Received in formalin labeled KUSS, duodenal bulb biopsies are three light abbott soft tissue bits, 0.2 cm each. The specimen is filtered and entirely submitted in a single cassette. (1, ns, [id number],m3) DM.3. Received in formalin labeled KUSS, fundic gland polyp is a light abbott soft tissue bit, 0.3 cm. The specimen is filtered and entirely submitted in a single cassette. (1, ns, [id number],m3) DM.4. Received in formalin labeled KUSS, distal esophageal biopsy are three pale-abbott soft tissue bits, 0.2 cm each. The specimen is filtered and entirely submitted in a single cassette. (1, ns, [id number],m3) DM.dm/09/27/2024GRSpecimen(s) Received1: Second portion of duodenum biopsies2: Duodenal bulb biopsy3: Fundic gland polyp4: Esophageal distal biopsyFee Codes(s):1; 299023; 236136; 957902; 96582 MAGNESIUMon 09-22-2024 Magnesium [Mass/Vol] 1.8 mg/dL Normal 1.8-2.6 [facility] Comment on above: Performed By: #### 1 9123-9 ####[facility] ([id number])[address] [place] [address] MAGNESIUMon 09-15-2024 Magnesium [Mass/Vol] 1.8 mg/dL Normal 1.8-2.6 [facility] Comment on above: Performed By: #### 1 9123-9 ####[facility] ([id number])[address] [place] [address] 135[address] MAGNESIUMon 09-08-2024 Magnesium [Mass/Vol] 1.7 mg/dL Low 1.8-2.6 [facility] Comment on above: Performed By: #### 1 9123-9 ####[facility] ([id number])[address] [place] [address] 27968 MAGNESIUMon 09-01-2024 Magnesium [Mass/Vol] 1.8 mg/dL Normal 1.8-2.6 [facility] Comment on above: Performed By: #### 1 9123-9 ####[facility] ([id number])[address] [place] [address] MAGNESIUMon 08-25-2024 Magnesium [Mass/Vol] 1.6 mg/dL Low 1.8-2.6 [facility] Comment on above: Performed By: #### 1 9123-9 ####[facility] ([id number])[address] [place] [address] MAGNESIUMon 08-18-2024 Magnesium [Mass/Vol] 1.6 mg/dL Low 1.8-2.6 [facility] Comment on above: Performed By: #### 1 9123-9 ####[facility] ([id number])[address] [place] [address] MAGNESIUMon 08-11-2024 Magnesium [Mass/Vol] 1.6 mg/dL Low 1.8-2.6 [facility] Comment on above: Performed By: #### 1 9123-9 ####[facility] ([id number])[address] [place] [address], [place] [address] MAGNESIUMon 08-04-2024 Magnesium [Mass/Vol] 1.5 mg/dL Low 1.8-2.6 [facility] Comment on above: Performed By: #### 1 9123-9 ####[facility] ([id number])[address] [place] [address], [place] [address] MAGNESIUMon 07-28-2024 Magnesium [Mass/Vol] 1.5 mg/dL Low 1.8-2.6 [facility] Comment on above: Performed By: #### 1 9123-9 ####[facility] ([id number])[address] [place] [address], [place] [address] MAGNESIUMon 07-21-2024 Magnesium [Mass/Vol] 1.6 mg/dL Low 1.8-2.6 [facility] Comment on above: Performed By: #### 1 9123-9 ####[facility] ([id number])[address] [place] [address], [place] [address] MAGNESIUMon 07-15-2024 Magnesium [Mass/Vol] 1.5 mg/dL Low 1.8-2.6 [facility] Comment on above: Performed By: #### 1 9123-9 ####[facility] ([id number])[address] [place] [address] MAGNESIUMon 07-07-2024 Magnesium [Mass/Vol] 1.6 mg/dL Low 1.8-2.6 [facility] Comment on above: Performed By: #### 1 9123-9 ####[facility] ([id number])[address] [place] [address], [place] [address] MAGNESIUMon 06-30-2024 Magnesium [Mass/Vol] 1.6 mg/dL Low 1.8-2.6 [facility] Comment on above: Performed By: #### 1 9123-9 ####[facility] ([id number])[address] [place] [address] MAGNESIUMon 06-23-2024 Magnesium [Mass/Vol] 1.7 mg/dL Low 1.8-2.6 [facility] Comment on above: Performed By: #### 1 9123-9 ####[facility] ([id number])[address] [place] [address] MAGNESIUMon 06-16-2024 Magnesium [Mass/Vol] 1.7 mg/dL Low 1.8-2.6 [facility] Comment on above: Performed By: #### 1 9123-9 ####[facility] ([id number])[address] [place] [address] 53430 MAGNESIUMon 06-09-2024 Magnesium [Mass/Vol] 1.7 mg/dL Low 1.8-2.6 [facility] Comment on above: Performed By: #### 1 9123-9 ####[facility] ([id number])[address] [place] [address] 11911 MAGNESIUMon 06-02-2024 Magnesium [Mass/Vol] 1.6 mg/dL Low 1.8-2.6 [facility] Comment on above: Performed By: #### 1 9123-9 ####[facility] ([id number])[address] [place] [address] 33560 URINE CULTUREon 05-30-2024 Bacteria identified Cx Nom [...] F TRIMETH/SULFAMETHOXAZOL E S <=11/30 F Susceptible [place] Comment on above: Performed By: #### 6 30-4 #### [facility] ([id number]) [address] [place] [address] POCT Hemoglobin A1con 2023 HbA1c (Bld) [Mass fraction] 7.1 g/dL Abnormal 4 - 7 g/dL [facility] Interpretation and review of laboratory results Abnormal [facility] POCT urinalysis dipstick onl yon 05-27-2024 Appearance (U) cloudy [facility] External Poct Urine Bilirubin Negative [facility] External Poct Urine Blood Trace [facility] External Poct Urine Color yellow [facility] External Poct Urine Glucose Negative [facility] External Poct Urine Ketones Negative [facility] External Poct Urine Leukocyte Esterase Moderate [facility] External Poct Urine Nitrite Negative [facility] External Poct Urine Ph 5.5 [facility] External Poct Urine Protein 3+ [facility] Comment on above: >=300 External Poct Urine Specific [place] 1.025 [facility] External Poct Urine Urobilinogen 0.2 [facility] URINE CULTUREon 05-27-2024 Bacteria identified Cx Nom (U) CULTURE RESULTS MULTIPLE SPECIES PRESENT. PROBABLE COLLECTION CONTAMINATION. SUGGEST REPEAT SPECIMEN. Normal [place] Comment on above: Performed By: #### 6 30-4 #### [facility] ([id number]) [address] [place] [address] MAGNESIUMon 05-26-2024 Magnesium [Mass/Vol] 1.6 mg/dL Low 1.8-2.6 [facility] Comment on above: Performed By: #### 1 9123-9 ####[facility] ([id number])[address] [place] [address] 216[address] MAGNESIUMon 05-19-2024 Magnesium [Mass/Vol] 1.7 mg/dL Low 1.8-2.6 [facility] Comment on above: Performed By: #### 1 9123-9 ####[facility] ([id number])[address] [place] [address] 41418 MAGNESIUMon 05-12-2024 Magnesium [Mass/Vol] 1.6 mg/dL Low 1.8-2.6 [facility] Comment on above: Performed By: #### 1 9123-9 ####[facility] ([id number])[address] [place] [address] MAGNESIUMon 05-05-2024 Magnesium [Mass/Vol] 1.4 mg/dL Low 1.8-2.6 [facility] Comment on above: Performed By: #### 1 9123-9 ####[facility] ([id number])[address] [place] [address] MAGNESIUMon 04-28-2024 Magnesium [Mass/Vol] 1.5 mg/dL Low 1.8-2.6 [facility] Comment on above: Performed By: #### 1 9123-9 ####[facility] ([id number])[address] [place] [address] 58579 COMPLETE BLOOD COUNTon 04-21 Erythrocyte distribution width (RBC) [Ratio] 16.6 % High 11.5-15.0 [facility] Comment on above: Performed By: #### C BC, UPCR, FEPR, 15636-9, RENAL, 3084-1, 2276-4, 2731-8, 94667-3 ####[facility] ([id number])[address], [place] [address] Hematocrit (Bld) [Volume fraction] 33.8 % Low 35-47 [facility] Comment on above: Performed By: #### C BC, UPCR, FEPR, 55100-1, RENAL, 3084-1, 2276-4, 2731-8, 71395-3 ####[facility] ([id number])[address], [address] [place] [address] Hemoglobin (Bld) [Mass/Vol] 11.0 g/dL Low 11.7-15.5 [facility] Comment on above: Performed By: #### C BC, UPCR, FEPR, 30002-6, RENAL, 4-1, 2276-4, 2731-8, 62957-9 ####[facility] ([id number])[address], [address] [place] [address] MCH (RBC) [Entitic mass] 30.0 pg Normal 27-34 [facility] Comment on above: Performed By: #### C BC, UPCR, FEPR, 12165-9, RENAL, 4-1, 2276-4, 2731-8, 77923-3 ####[facility] ([id number])[address] [facility] [place] [address] MCHC (RBC) [Mass/Vol] 32.7 g/dL Normal 32-36 [facility] Comment on above: Performed By: #### C BC, UPCR, FEPR, 36896-8, RENAL, 4-1, 2276-4, 2731-8, 56999-0 ####[facility] ([id number])[address] [facility] [place] [address] MCV (RBC) [Entitic vol] 92 fL Normal 80-100 [facility] Comment on above: Performed By: #### C BC, UPCR, FEPR, 90304-5, RENAL, 4-1, 2276-4, 2731-8, 08513-4 ####[facility] ([id number])[address], [address] [place] [address] Platelet mean volume (Bld) [Entitic vol] 9.5 fL Normal 7-12 [facility] Comment on above: Performed By: #### C BC, UPCR, FEPR, 09797-6, RENAL, 3084-1, 2276-4, 2731-8, 91146-1 ####[facility] ([id number])[address], [place] [address] Platelets (Bld) [#/Vol] 182 10*3/uL Normal 150-450 [facility] Comment on above: Performed By: #### C BC, UPCR, FEPR, 09266-1, RENAL, 3084-1, 2276-4, 2731-8, 63919-4 ####[facility] ([id number])[address], [address], [place] [address] RBC COUNT 3.68 X10E12/L Low 3.80-5.20 [facility] Comment on above: Performed By: #### C BC, UPCR, FEPR, 96194-5, RENAL, 3084-1, 2276-4, 2731-8, 27708-9 ####[facility] ([id number])[address], [address], [place] [address] WBC (Bld) [#/Vol] 6.2 10*3/uL Normal 4.0-11.0 [facility] Comment on above: Performed By: #### C BC, UPCR, FEPR, 88332-2, RENAL, 3084-1, 2276-4, 2731-8, 30878-7 ####[facility] ([id number])[address], [address] [place] [address] FERRITINon 04-21-2024 Ferritin [Mass/Vol] 113 ng/mL Normal 11-307 [facility] Comment on above: Performed By: #### C BC, UPCR, FEPR, 30509-1, RENAL, 3084-1, 2276-4, 2731-8, 20770-3 ####[facility] ([id number])[address], [place] [address] IRON PROFILEon 04-21-2024 Iron [Mass/Vol] 56 ug/dL Normal 50-170 [facility] Comment on above: Performed By: #### C BC, UPCR, FEPR, 21034-1, RENAL, 3084-1, 2276-4, 2731-8, 81067-4 ####[facility] ([id number])[address], [address] [place] [address] IRON BINDING 307 ug/dL Normal 250-425 [facility] Comment on above: Performed By: #### C BC, UPCR, FEPR, 59645-1, RENAL, 3084-1, 2276-4, 2731-8, 53158-9 ####[facility] ([id number])[address] [address] IRON SATURATION 18 % SATURATION Normal 15-50 [facility] Comment on above: Performed By: #### C BC, UPCR, FEPR, 98512-4, RENAL, 3084-1, 2276-4, 2731-8, 47189-8 ####[facility] ([id number])[address] [address] MAGNESIUMon 04-21-2024 Magnesium [Mass/Vol] 1.4 mg/dL Low 1.8-2.6 [facility] Comment on above: Performed By: #### C BC, UPCR, FEPR, 64599-1, RENAL, 3084-1, 2276-4, 2731-8, 99579-7 ####[facility] ([id number])[address] [facility] [address] [place] [address] PROTEIN CREAT RATIOon 2023 RANDOM URINE PROTEIN 470 mg/L High <120 [facility] Comment on above: Performed By: #### C BC, UPCR, FEPR, 10014-8, RENAL, 3084-1, 2276-4, 2731-8, 46899-7 ####[facility] ([id number])[address], [place] [address] U/PRO/CONFERENCE ASSISTANT RATIO CALC 0.50 High <0.2 [facility] Comment on above: Result Comment: Neph rotic Syndrome is associated with ratios >3.5 Performed By: #### C BC, UPCR, FEPR, 82488-8, RENAL, 3084-1, 2276-4, 2731-8, 67096-8 ####[facility] ([id number])[address], [place] [address] URINE CREATININE,RDM 94.29 mg/dL Normal [facility] Comment on above: Performed By: #### C BC, UPCR, FEPR, 33887-9, RENAL, 3084-1, 2276-4, 2731-8, 83989-7 ####[facility] ([id number])[address], [place] [address] Parathyrin.intact [Mass/Vol] on 04-21-2024 PTH INTACT 168 pg/mL High 12-88 [facility] Comment on above: Performed By: #### C BC, UPCR, FEPR, 66082-8, RENAL, 3084-1, 2276-4, 2731-8, 47901-1 ####[facility] ([id number])[address], [place] [address] RENAL PANELon 04-21-2024 Albumin [Mass/Vol] 3.7 g/dL Normal 3.2-5.3 [facility] Comment on above: Performed By: #### C BC, UPCR, FEPR, 38038-2, RENAL, 3084-1, 2276-4, 2731-8, 63447-5 ####[facility] ([id number])[address], [place] [address] Anion gap [Moles/Vol] 11 mmol/L Normal 5-15 [facility] Comment on above: Performed By: #### C BC, UPCR, FEPR, 61230-7, RENAL, 3084-1, 2276-4, 2731-8, 08708-8 ####[facility] ([id number])[address], [place] [address] Calcium [Mass/Vol] 8.9 mg/dL Normal 8.5-10.5 [facility] Comment on above: Performed By: #### C BC, UPCR, FEPR, 63786-8, RENAL, 3084-1, 2276-4, 2731-8, 33656-5 ####[facility] ([id number])[address] [address] Chloride [Moles/Vol] 106 mmol/L Normal 98-109 [facility] Comment on above: Performed By: #### C BC, UPCR, FEPR, 12649-2, RENAL, 3084-1, 2276-4, 2731-8, 41409-2 ####[facility] ([id number])[address] [address] CO2 [Moles/Vol] 26 mmol/L Normal 22-32 [facility] Comment on above: Performed By: #### C BC, UPCR, FEPR, 55374-3, RENAL, 3084-1, 2276-4, 2731-8, 32659-5 ####[facility] ([id number])[address] [place] [address] Creatinine [Mass/Vol] 1.78 mg/dL High 0.40-1.00 [facility] Comment on above: Result Comment: METH OD TRACEABLE TO IDMS STANDARD Performed By: #### C BC, UPCR, FEPR, 99560-3, RENAL, 3084-1, 2276-4, 2731-8, 80262-1 ####[facility] ([id number])[address] [address], [place] [address] GFR/1.73 sq M.predicted among non-blacks MDRD (S/P/Bld) [Vol rate/Area] 28 mL/min/{1.73_m2} Low >59 [facility] Comment on above: Result Comment: Repo rted eGFR is based on theCKD-EPI 2020 equation that doesnot use a race coefficient. Performed By: #### C BC, UPCR, FEPR, 95337-9, RENAL, 3084-1, 2276-4, 2731-8, 77265-6 ####[facility] ([id number])[address] [address] Glucose [Mass/Vol] 157 mg/dL High 65-99 [facility] Comment on above: Performed By: #### C BC, UPCR, FEPR, 11768-0, RENAL, 3084-1, 2276-4, 2731-8, 38145-9 ####[facility] LAB ([id number])[address] [address], [place] [address] Phosphate [Mass/Vol] 3.8 mg/dL Normal 2.4-4.9 [facility] Comment on above: Performed By: #### C BC, UPCR, FEPR, 24286-1, RENAL, 3084-1, 2276-4, 2731-8, 09075-7 ####[facility] ([id number])[address] [place] [address] Potassium [Moles/Vol] 4.2 mmol/L Normal 3.5-5.0 [facility] Comment on above: Performed By: #### C BC, UPCR, FEPR, 53115-0, RENAL, 3084-1, 2276-4, 2731-8, 54319-7 ####[facility] ([id number])[address] [address] [place] [address] Sodium [Moles/Vol] 143 mmol/L Normal 134-146 [facility] Comment on above: Performed By: #### C BC, UPCR, FEPR, 87853-4, RENAL, 3084-1, 2276-4, 2731-8, 52895-6 ####[facility] ([id number])[address], [place] [address] Urea nitrogen [Mass/Vol] 42 mg/dL High 5-27 [facility] Comment on above: Performed By: #### C BC, UPCR, FEPR, 77855-0, RENAL, 3084-1, 2276-4, 2731-8, 02321-3 ####[facility] ([id number])[address], [address] [place] [address] URIC ACIDon 04-21-2024 Urate [Mass/Vol] 4.3 mg/dL Normal 2.6-7.2 [facility] Comment on above: Performed By: #### C BC, UPCR, FEPR, 92489-1, RENAL, 3084-1, 2276-4, 2731-8, 80009-4 ####[facility] ([id number])[address], [address] [place] [address] URINALYSISon 04-21-2024 Bilirubin Ql (U) Negative Normal NEG [facility] Comment on above: Performed By: #### U A ####[facility] ([id number])[address], [address], [place] [address] BLOOD/HGB Trace Abnormal NEG [facility] Comment on above: Performed By: #### U A ####[facility] ([id number])[address], [address] [place] [address], [place] [address] Color (U) YELLOW Normal YELLOW [facility] Comment on above: Performed By: #### U A ####[facility] ([id number])[address], [address], [place] [address] Glucose Ql (U) Negative Normal NEG [facility] Comment on above: Performed By: #### U A ####[facility] ([id number])[address], [address] [place] [address] Ketones Ql (U) Negative Normal NEG [facility] Comment on above: Performed By: #### U A ####[facility] ([id number])[address], [address] [place] [address] Leukocyte esterase Test strip Ql (U) Large Abnormal NEG [facility] Comment on above: Performed By: #### U A ####[facility] ([id number])[address], [address] [place] [address] 18[address] MUCOUS PRESENT Abnormal NONE [facility] Comment on above: Performed By: #### U A ####[facility] ([id number])[address], [place] [address] Nitrite Ql (U) Negative Normal NEG [facility] Comment on above: Performed By: #### U A ####[facility] ([id number])[address], [address] [place] [address] pH (U) 6.0 [pH] Normal 5.0-8.5 [facility] Comment on above: Performed By: #### U A ####[facility] ([id number])[address] [address] [place] [address] Protein Ql (U) 50 mg/dL Abnormal NEG [facility] Comment on above: Performed By: #### U A ####[facility] ([id number])[address], [address] [place] [address] R.B.CELLS 5 /hpf Normal 0-5 [facility] Comment on above: Performed By: #### U A ####[facility] ([id number])[address], [address], [place] [address] Specific gravity (U) [Rel density] 1.014 Normal 1.003-1.035 [facility] Comment on above: Performed By: #### U A ####[facility] ([id number])[address] [address], [place] [address] SQUAMOUS EPITHELIUM 1 /hpf Normal 0-5 [facility] Comment on above: Performed By: #### U A ####[facility] ([id number])[address] [address], [place] [address] TURBIDITY HAZY Abnormal CLEAR [facility] Comment on above: Performed By: #### U A ####[facility] ([id number])[address] [address], [place] [address] Urobilinogen (U) [Mass/Vol] mg/dL Normal <1.1 [facility] Comment on above: Performed By: #### U A ####[facility] ([id number])[address] [address], [place] [address] W.B.CELLS 455 /hpf High 0-5 [facility] Comment on above: Performed By: #### U A ####[facility] ([id number])[address] [address], [place] [address] WBC CLUMPS RARE Abnormal NONE [facility] Comment on above: Performed By: #### U A ####[facility] ([id number])[address] [address], [place] [address] Vitamin D+Metabolites [Mass/ Vol]on 04-21-2024 VITAMIN D 25 HYD TOT 32.8 ng/mL Normal 30-100 [facility] Comment on above: Result Comment: Radha min D status 25 [place] Vitamin D Deficiency <20 ng/mLInsufficiency 20-29 ng/mLSufficiency 30-100 ng/mLToxicity >100 ng/mLNOTE: A pediatric reference range has not beenestablished by the hvac technician of this kit.The [employer] recommendsa Vitamin D level of = or >20ng/mL in infantsand children. Performed By: #### C BC, UPCR, FEPR, 49597-6, RENAL, 3084-1, 2276-4, 2731-8, 18862-7 ####[facility] ([id number])[address] [place] [address], [address] [place] [address] MAGNESIUMon 04-14-2024 Magnesium [Mass/Vol] 1.6 mg/dL Low 1.8-2.6 [facility] Comment on above: Performed By: #### 1 9123-9 ####[facility] ([id number])[address] [place] [address] MAGNESIUMon 04-08-2024 Magnesium [Mass/Vol] 1.5 mg/dL Low 1.8-2.6 [facility] Comment on above: Performed By: #### 1 9123-9 ####[facility] ([id number])[address] [place] [address] 9[address] MAGNESIUMon 03-31-2024 Magnesium [Mass/Vol] 1.7 mg/dL Low 1.8-2.6 [facility] Comment on above: Performed By: #### 1 9123-9 ####[facility] ([id number])[address] [place] [address] 0[address] MAGNESIUMon 03-24-2024 Magnesium [Mass/Vol] 1.6 mg/dL Low 1.8-2.6 [facility] Comment on above: Performed By: #### 1 9123-9 ####[facility] ([id number])[address] [place] [address] MAGNESIUMon 03-17-2024 Magnesium [Mass/Vol] 1.6 mg/dL Low 1.8-2.6 [facility] Comment on above: Performed By: #### 1 9123-9 ####[facility] ([id number])[address] [place] [address] 52579 MAGNESIUMon 03-10-2024 Magnesium [Mass/Vol] 1.6 mg/dL Low 1.8-2.6 [facility] Comment on above: Performed By: #### 1 9123-9 ####[facility] ([id number])[address] [place] [address] 98883 MAGNESIUMon 03-03-2024 Magnesium [Mass/Vol] 1.8 mg/dL Normal 1.8-2.6 [facility] Comment on above: Performed By: #### 1 9123-9 ####[facility] ([id number])[address] [place] [address] 69616 MAGNESIUMon 02-25-2024 Magnesium [Mass/Vol] 1.9 mg/dL Normal 1.8-2.6 [facility] Comment on above: Performed By: #### 1 9123-9 ####[facility] ([id number])[address] [place] [address] 48552 MAGNESIUMon 02-18-2024 Magnesium [Mass/Vol] 1.9 mg/dL Normal 1.8-2.6 [facility] Comment on above: Performed By: #### 1 9123-9 ####[facility] ([id number])[address] [place] [address] 06180 MAGNESIUMon 02-11-2024 Magnesium [Mass/Vol] 2.0 mg/dL Normal 1.8-2.6 [facility] Comment on above: Performed By: #### 1 9123-9 ####[facility] ([id number])[address] [place] [address] 11594 MAGNESIUMon 02-04-2024 Magnesium [Mass/Vol] 1.8 mg/dL Normal 1.8-2.6 [facility] Comment on above: Performed By: #### 1 9123-9 ####[facility] ([id number])[address] [place] [address] 25404 MAGNESIUMon 01-28-2024 Magnesium [Mass/Vol] 1.8 mg/dL Normal 1.8-2.6 [facility] Comment on above: Performed By: #### 1 9123-9 ####[facility] ([id number])[address] [place] [address] 57213 MAGNESIUMon 01-21-2024 Magnesium [Mass/Vol] 1.7 mg/dL Low 1.8-2.6 [facility] Comment on above: Performed By: #### 2 823-3, 53492-7 ####[facility] ([id number])[address] [place] [address] 40401 POTASSIUMon 01-21-2024 Potassium [Moles/Vol] 3.6 mmol/L Normal 3.5-5.0 [facility] Comment on above: Performed By: #### 2 823-3, 87408-2 ####[facility] ([id number])[address] [place] [address] 10425 MAGNESIUMon 01-14-2024 Magnesium [Mass/Vol] 1.6 mg/dL Low 1.8-2.6 [facility] Comment on above: Performed By: #### 1 9123-9 ####[facility] ([id number])[address] [place] [address] 81625 MAGNESIUMon 01-07-2024 Magnesium [Mass/Vol] 1.7 mg/dL Low 1.8-2.6 [facility] Comment on above: Performed By: #### 1 9123-9 ####[facility] ([id number])[address] [place] [address] 05555 MAGNESIUMon 12-31-2023 Magnesium [Mass/Vol] 1.7 mg/dL Low 1.8-2.6 [facility] Comment on above: Performed By: #### 1 9123-9 ####[facility] ([id number])[address] [place] [address] 43460 MAGNESIUMon 12-24-2023 Magnesium [Mass/Vol] 1.6 mg/dL Low 1.8-2.6 [facility] Comment on above: Performed By: #### 1 9123-9 ####[facility] ([id number])[address] [place] [address], [place] [address] MAGNESIUMon 12-17-2023 Magnesium [Mass/Vol] 1.5 mg/dL Low 1.8-2.6 [facility] Comment on above: Performed By: #### 1 9123-9 ####[facility] ([id number])[address] [place] [address] 86400 MAGNESIUMon 12-10-2023 Magnesium [Mass/Vol] 1.7 mg/dL Low 1.8-2.6 [facility] Comment on above: Performed By: #### 1 9123-9 ####[facility] ([id number])[address] [place] [address] 25513 MAGNESIUMon 12-03-2023 Magnesium [Mass/Vol] 1.7 mg/dL Low 1.8-2.6 [facility] Comment on above: Performed By: #### 1 9123-9 ####[facility] ([id number])[address] [place] [address] [place] [address] COMPREHENSIVE METABOLIC PANE Jared 11-26-2023 Albumin [Mass/Vol] 3.9 g/dL Normal 3.2-5.3 [facility] Comment on above: Performed By: #### 1 9123-9 ####[facility] ([id number])[address] [place] [address] 78322#### CMP, 97799-6 ####[facility] ([id number])[address], [address], [place] [address] ALP [Catalytic activity/Vol] 122 U/L Normal 39-130 [facility] Comment on above: Performed By: #### 1 9123-9 ####[facility] ([id number])[address] [place] [address] 47312#### CMP, 30363-9 ####[facility] ([id number])[address], [address] [place] [address] ALT [Catalytic activity/Vol] 29 U/L Normal 0-31 [facility] Comment on above: Performed By: #### 1 9123-9 ####[facility] ([id number])[address] [place] [address] 18706#### JAS, 51548-8 ####[facility] ([id number])[address], [address] [place] [place] [address] Anion gap [Moles/Vol] 9 mmol/L Normal 5-15 [facility] Comment on above: Performed By: #### 1 9123-9 ####[facility] ([id number])[address] [place] [address] 88718#### CMP, 83479-7 ####[facility] ([id number])[address], [address], [place] [address] AST [Catalytic activity/Vol] 22 U/L Normal 0-41 [facility] Comment on above: Performed By: #### 1 9123-9 ####[facility] ([id number])[address] [place] [address] 76595#### CMP, 31011-5 ####[facility] ([id number])[address], [address], [place] [address] Bilirubin [Mass/Vol] 0.4 mg/dL Normal 0.3-1.2 [facility] Comment on above: Performed By: #### 1 9123-9 ####[facility] ([id number])[address] [place] [address] 31824#### JAS, 49479-3 ####[facility] ([id number])[address], [address], [place] [address] Calcium [Mass/Vol] 9.7 mg/dL Normal 8.5-10.5 [facility] Comment on above: Performed By: #### 1 9123-9 ####[facility] ([id number])[address] [place] [address] 70152#### JAS, 69669-0 ####[facility] ([id number])[address], [address], [place] [address] Chloride [Moles/Vol] 103 mmol/L Normal 98-109 [facility] Comment on above: Performed By: #### 1 9123-9 ####[facility] ([id number])[address] [place] [address] 39859#### JAS, 59277-8 ####[facility] ([id number])[address], [address], [place] [address] CO2 [Moles/Vol] 30 mmol/L Normal 22-32 [facility] Comment on above: Performed By: #### 1 9123-9 ####[facility] ([id number])[address] [place] [address] 63714#### JAS, 69149-1 ####[facility] ([id number])[address], [address], [place] [address] Creatinine [Mass/Vol] 1.53 mg/dL High 0.40-1.00 [facility] Comment on above: Result Comment: METH OD TRACEABLE TO IDMS STANDARD Performed By: #### 1 9123-9 ####[facility] ([id number])[address] [place] [address] 99522#### JAS, 70378-1 ####[facility] ([id number])[address] [address] GFR/1.73 sq M.predicted among non-blacks MDRD (S/P/Bld) [Vol rate/Area] 34 mL/min/{1.73_m2} Low >59 [facility] Comment on above: Result Comment: Repo rted eGFR is based on theCKD-EPI 2020 equation that doesnot use a race coefficient. Performed By: #### 1 9123-9 ####[facility] ([id number])[address] [place] [address] 27632#### JAS, 49227-2 ####[facility] ([id number])[address] [address] Glucose [Mass/Vol] 165 mg/dL High 65-99 [facility] Comment on above: Performed By: #### 1 9123-9 ####[facility] ([id number])[address] [place] [address] 38287#### JAS, 35540-9 ####[facility] ([id number])[address] [address] Potassium [Moles/Vol] 4.4 mmol/L Normal 3.5-5.0 [facility] Comment on above: Performed By: #### 1 9123-9 ####[facility] ([id number])[address] [place] [address] 76384#### JAS, 55625-6 ####[facility] ([id number])[address], [address], [place] [address] Protein [Mass/Vol] 7.1 g/dL Normal 6.0-8.0 [facility] Comment on above: Performed By: #### 1 9123-9 ####[facility] ([id number])[address] [place] [address] 65941#### JAS, 54278-0 ####[facility] ([id number])[address], [address], [place] [address] Sodium [Moles/Vol] 142 mmol/L Normal 134-146 [facility] Comment on above: Performed By: #### 1 9123-9 ####[facility] ([id number])[address] [place] [address] 85516#### JAS, 98320-3 ####[facility] ([id number])[address], [address] [place] [place] [address] Urea nitrogen [Mass/Vol] 43 mg/dL High 5-27 [facility] Comment on above: Performed By: #### 1 9123-9 ####[facility] ([id number])[address] [place] [address] 89048#### JAS, 06436-3 ####[facility] ([id number])[address], [address], [place] [address] HGB A1C (GLYCO-HGB)on 2023 Glucose [Mass/Vol] 163 mg/dL Normal [facility] Comment on above: Performed By: #### 1 9123-9 ####[facility] ([id number])[address] [place] [address] 38291#### JAS, 60905-0 ####[facility] ([id number])[address], [address] [place] [address]45 HbA1c (Bld) [Mass fraction] 7.3 % High 4.4-5.6 [facility] Comment on above: Result Comment: NOTE ADA Guidelines Result HgbA1c Normal : less than 5.7 % Prediabetes : 5.7 % to 6.4 % Diabetes : > 6.4 %Use with caution in patients with abnormal hemoglobin variants asthe half-life of red blood cells and in vivo glycation rates areaffected. Performed By: #### 1 9123-9 ####[facility] ([id number])[address] [place] [address]#### JAS, 03991-6 ####[facility] ([id number])[address] [facility], [address] [address] Lipid 1996 panelon 4 Cholesterol [Mass/Vol] 145 mg/dL Low 150-200 [facility] Comment on above: Performed By: #### 1 9123-9 ####[facility] ([id number])[address] [place], [place] [address]#### JAS, 50793-7 ####[facility] ([id number])[address] [facility], [address] [address] Cholesterol in HDL [Mass/Vol] 53 mg/dL Normal >39 [facility] Comment on above: Result Comment: HDL <40 mg/dL - High RiskHDL > or = 40mg/dL- DesirableHDL >60 mg/dL - Negative Risk Performed By: #### 1 9123-9 ####[facility] ([id number])[address] [place] [address]#### JAS, 56449-5 ####[facility] ([id number])[address], [address] [place] [address]16 Cholesterol in LDL [Mass/Vol] 43 mg/dL Normal <130 [facility] Comment on above: Result Comment: LDL <100 mg/dL - DesirableLDL >160 mg/dL - High Risk Performed By: #### 1 9123-9 ####[facility] ([id number])[address] [place] [address] 19939#### JAS, 13308-8 ####[facility] ([id number])[address], [address] [place] [address] Cholesterol in VLDL [Mass/Vol] 49 mg/dL High 0-30 [facility] Comment on above: Performed By: #### 1 9123-9 ####[facility] ([id number])[address] [place] [address] 66758#### JAS, 97162-1 ####[facility] ([id number])[address], [address] [place] [address] CHOLESTEROL:HDL 2.7 Normal 1.0-5.0 [facility] Comment on above: Performed By: #### 1 9123-9 ####[facility] ([id number])[address] [place] [address] 17994#### JAS, 88917-4 ####[facility] ([id number])[address], [address] [place] [address]10 Triglyceride [Mass/Vol] 245 mg/dL High 27-150 [facility] Comment on above: Performed By: #### 1 9123-9 ####[facility] ([id number])[address] [place] [address] 19426#### JAS, 02563-4 ####[facility] ([id number])[address] [place] [address] MAGNESIUMon 11-26-2023 Magnesium [Mass/Vol] 1.8 mg/dL Normal 1.8-2.6 [facility] Comment on above: Performed By: #### 1 9123-9 ####[facility] ([id number])[address] [place] [address] 31911#### JAS, 83341-7 ####[facility] ([id number])[address] [place] [address] MICROALBUMIN - ALBUMIN:CREAT ININE URINE RATIOon 11-26-2023 ALB/CREAT RATIO 352.8 mg/g creat High 0.0-30.0 [facility] Comment on above: Performed By: #### M ALBU #### [facility] ([id number]) [address] [place] [address] Albumin DL <= 20 mg/L (U) [Mass/Vol] 14.6 mg/dL High 0.0-1.9 [place] Comment on above: Performed By: #### M ALBU #### [facility] ([id number]) [address] [place] [address] 18024 URINE CREAT 41.38 mg/dL Normal [facility] Comment on above: Performed By: #### M ALBU #### [facility] ([id number]) [address] [place] [address]51 Office Visiton 11-19-2023 Follow-up visit [id number] Adore Wolff Maryjane 1940 F Date Provider Department Center 11/19/2023 [facility] Family History Problem Relation Age of Onset Heart attack Mother Family Status - Relation Status Age at Mother Level of Service:82789 MD OFFICE/OUTPATIENT ESTABLISHED LOW MDM 20 MIN Normal [facility] Magnesium [Mass/volume] in S asiya or PlasmaOrdered By: Gia Munoz on 11-16-2023 Magnesium [Mass/Vol] 1.4 mg/dL 1.9-2.7 [facility] Multiple labsOrdered By: Mary Ann Carter on 11-16-2023 [facility] P[facility] INTACTon 01-16-2023 PTH, Intact 115 pg/mL Critically high 15-65 [facility] Comment on above: Performed By: #### M G, URIC, RENAL #### [facility] [address] [place] [address] Dr. Nacho Jeffery FERRITINon 01-15-2023 Ferritin [Mass/Vol] 304.0 ng/mL Critically high 8.0-252.0 [facility] Comment on above: Performed By: #### M G, URIC, RENAL #### [facility] [address] [place] [address] Dr. Nacho Jeffery HEMOGRAM AND PLATELon 2022 Hematocrit (Bld) [Volume fraction] 36.0 % Normal 36.0-48.0 [facility] Comment on above: Performed By: #### M G, URIC, RENAL #### [facility] [address] [address] [address] Nacho Jeffery Hemoglobin (Bld) [Mass/Vol] 11.6 g/dL Critically low 12.0-16.0 [facility] Comment on above: Performed By: #### M G, URIC, RENAL #### [facility] [address] [address] [address] Nacho Jeffery MCH (RBC) [Entitic mass] 29.4 pg Normal 26.7-34.0 [facility] Comment on above: Performed By: #### M G, URIC, RENAL #### [facility] [address] [place] [address] Dr. Nacho Jeffery MCHC (RBC) [Mass/Vol] 32.2 g/dL Normal 29.9-35.2 [facility] Comment on above: Performed By: #### M G, URIC, RENAL #### [facility] [address] [address] [address] Nacho Jeffery MCV (RBC) [Entitic vol] 91.4 fL Normal 81.0-99.0 [facility] Comment on above: Performed By: #### M G, URIC, RENAL #### [facility] [address] [address] [address] Nacho Jeffery PLT 202 103/ul Normal 150-450 [facility] Comment on above: Performed By: #### M G, URIC, RENAL #### [facility] [address] [address] [address] Nacho Jeffery RBC 3.94 106/ul Critically low 4.20-5.40 [facility] Comment on above: Performed By: #### M G, URIC, RENAL #### [facility] [address] [address] [address] Nacho Jeffery WBC 5.9 103/ul Normal 4.0-11.0 [facility] Comment on above: Performed By: #### M G, URIC, RENAL #### [facility] [address] [address] [address] Nacho Jeffery IRON AND TIBCon 01-15-2023 % SATURATION 23.4 % Normal [facility] Comment on above: Performed By: #### M G, URIC, RENAL #### [facility] [address] [address] [address] Nacho Jeffery Iron [Mass/Vol] 62.0 ug/dL Normal 50.0-170.0 [facility] Comment on above: Performed By: #### M G, URIC, RENAL #### [facility] [address] [address] [address] Nacho Jeffery TIBC DIRECT 265.0 ug/dL Normal 250.0-450.0 [facility] Comment on above: Performed By: #### M G, URIC, RENAL #### [facility] [address] [address] [address] Nacho Jeffery MAGNESIUMon 01-15-2023 Magnesium [Mass/Vol] 1.5 mg/dL Critically low 1.8-2.4 [facility] Comment on above: Performed By: #### M G, URIC, RENAL #### [facility] [facility] [address] [address] [address] Nacho Jeffery RENAL FUNCTION PANELon 01-15 Albumin [Mass/Vol] 3.4 g/dL Normal 3.4-5.[address] [facility] Comment on above: Performed By: #### M G, URIC, RENAL #### [facility] [address] [address] [address] Nacho Jeffery Calcium [Mass/Vol] 9.2 mg/dL Normal 8.5-10.[address] [facility] Comment on above: Performed By: #### M G, URIC, RENAL #### [facility] [address] [place] [address] Dr. Nacho Jfefery Chloride [Moles/Vol] 104 mmol/L Normal 98-107 [facility] Comment on above: Performed By: #### M G, URIC, RENAL #### [facility] [address] [address] [address] Nacho Jeffery CO2 [Moles/Vol] 30.8 mmol/L Normal 21.0-32.0 [facility] Comment on above: Performed By: #### M G, URIC, RENAL #### [facility] [address] [address] [address] Nacho Jeffery Creatinine [Mass/Vol] 1.52 mg/dL Critically high 0.55-1.02 [facility] Comment on above: Performed By: #### M G, URIC, RENAL #### [facility] [address] [address] [address] Nacho Jeffery EGFR-AF MONGOLIAN 40 mL/min/1.73m2 Critically low >=60 [facility] Comment on above: Performed By: #### M G, URIC, RENAL #### [facility] [address] [address] [address] Nacho Jeffery EGFR-NON AF MONGOLIAN 33 mL/min/1.73m2 Critically low >=60 [facility] Comment on above: Performed By: #### M G, URIC, RENAL #### [facility] [address] [address] [address] Nacho Jeffery Glucose [Mass/Vol] 172 mg/dL Critically high 74-106 [facility] Comment on above: Performed By: #### M G, URIC, RENAL #### [facility] [address] [place] [address] Dr. Nacho Jeffery Phosphate [Mass/Vol] 3.7 mg/dL Normal 2.6-4.7 [facility] Comment on above: Performed By: #### M G, URIC, RENAL #### [facility] [address] [place] [address] Dr. Nacho Jeffery Potassium [Moles/Vol] 4.2 mmol/L Normal 3.5-5.1 [facility] Comment on above: Performed By: #### M G, URIC, RENAL #### [facility] [address] [place] [address] Dr. Nacho Jeffery Sodium [Moles/Vol] 143 mmol/L Normal 136-145 [facility] Comment on above: Performed By: #### M G, URIC, RENAL #### [facility] [address] [place] [address] Dr. Nacho Jeffery Urea nitrogen [Mass/Vol] 56.0 mg/dL Critically high 7.0-18.0 [facility] Comment on above: Performed By: #### M G, URIC, RENAL #### [facility] [address] [place] [address] Dr. Nacho Jeffery UA RANDOM W/MICROSCOPICon BACTERIA NONE SEEN Normal NONE SEEN [facility] Comment on above: Performed By: #### M G, URIC, RENAL #### [facility] [address] [place] [address] Dr. Nacho Jeffery Bilirubin Ql (U) Negative Normal NEGATIVE [facility] Comment on above: Performed By: #### M G, URIC, RENAL #### [facility] [address] [place] [address] Dr. Nacho Jeffery CAST NONE SEEN Normal NONE SEEN The [facility] Comment on above: Performed By: #### M G, URIC, RENAL #### [facility] [address] [address] [address] Nacho Jeffery Clarity (U) CLEAR Normal CLEAR The [facility] Comment on above: Performed By: #### M G, URIC, RENAL #### [facility] [address] [place] [address] Dr. Nacho Jeffery Color (U) LT. YELLOW Normal YELLOW The [facility] Comment on above: Performed By: #### M G, URIC, RENAL #### [facility] [address] [place] [address] Dr. Nacho Jeffery Crystals LM Nom (Urine sed) NONE SEEN Normal NONE SEEN The [facility] Comment on above: Performed By: #### M G, URIC, RENAL #### [facility] [address] [place] [address] Dr. Nacho Jeffery Epithelial cells LM Ql (Urine sed) RARE Normal NONE SEEN /RARE The [facility] Comment on above: Performed By: #### M G, URIC, RENAL #### [facility] [address] [place] [address] Dr. Nacho Jeffery Glucose Ql (U) Negative Normal NEGATIVE [facility] Comment on above: Performed By: #### M G, URIC, RENAL #### [facility] [address] [place] [address] Dr. Nacho Jeffery Hemoglobin Ql (U) Negative Normal NEGATIVE [facility] Comment on above: Performed By: #### M G, URIC, RENAL #### [facility] [address] [place] [address] Dr. Nacho Jeffery Ketones Ql (U) Negative Normal NEGATIVE [facility] Comment on above: Performed By: #### M G, URIC, RENAL #### [facility] [address] [place] [address] Dr. Nacho Jeffery LEUKOCYTES TRACE Abnormal NEGATIVE The [facility] Comment on above: Performed By: #### M G, URIC, RENAL #### [facility] [address] [place] [address] Dr. Nacho Jeffery MUCOUS NONE SEEN Normal NONE SEEN The [facility] Comment on above: Performed By: #### M G, URIC, RENAL #### [facility] [address] [address] [address] Nacho Jeffery Nitrite Ql (U) Negative Normal NEGATIVE [facility] Comment on above: Performed By: #### M G, URIC, RENAL #### [facility] [address] [address] [address] Nacho Jeffery pH (U) 5.5 [pH] Normal 5-9 [facility] Comment on above: Performed By: #### M G, URIC, RENAL #### [facility] [address] [address] [address] Nacho Jeffery RBC 0-2 Normal 0-2 [facility] Comment on above: Performed By: #### M G, URIC, RENAL #### [facility] [address] [address] [address] Nacho Jeffery SPEC GRAVITY 1.015 Normal 1.005-<=1.025 [facility] Comment on above: Performed By: #### M G, URIC, RENAL #### [facility] [address] [address] [address] Nacho Jeffery UA PROTEIN Negative Normal NEGATIVE/ TRACE The [facility] Comment on above: Performed By: #### M G, URIC, RENAL #### [facility] [address] [address] [address] Nacho Jeffery Urobilinogen Qn (U) 0.2 {Zuleyka'U}/dL Normal 0.2 - 1. 0 [facility] Comment on above: Performed By: #### M G, URIC, RENAL #### [facility] [address] [address] [address] Nacho Jeffery WBC 2-5 Abnormal NONE SEEN The [facility] Comment on above: Performed By: #### M G, URIC, RENAL #### [facility] [address] [address] [address] Nacho Jeffery URIC ACID SERUMon 01-15-2023 Urate [Mass/Vol] 7.0 mg/dL Critically high 2.6-6.0 [facility] Comment on above: Performed By: #### M G, URIC, RENAL #### [facility] [address] [address] [address] Nacho Jeffery URINE T PROTEIN CREAT RATIOo n 01-15-2023 Protein (U) [Mass/Vol] 13.4 mg/dL Critically high <=12.0 [facility] Comment on above: Performed By: #### U RTPCR #### [facility] [address] [address] [address] Nacho Jeffery UR PROT CREAT RAT 0.24 Normal [facility] Comment on above: Performed By: #### U RTPCR #### [facility] [address] [place] [address] Dr. Nacho Jeffery URINE CREAT 56.90 mg/dL Normal 20.00-300.00 [facility] Comment on above: Performed By: #### U RTPCR #### [facility] [address] [address] [address] Nacho Jeffery VITAMIN D 25 OHon 01-15-2023 VIT D 25-OH 52.6 ng/mL Normal [facility] Comment on above: Performed By: #### M Jamarcus, URIC, RENAL #### [facility] [address] [place] [address] Dr. Nacho Jeffery VIT D RANGES SEE BELOW Normal [facility] Comment on above: Result Comment: <20 ng/mL Vit D deficient 20 - <30 ng/mL Vit D insufficient 30 - 100 ng/mL Vit D sufficient >100 ng/mL Potential Toxicity Performed By: #### M G, URIC, RENAL #### [facility] [address] [place] [address] Dr. Nacho Jeffery Telemedicineon 12-06-2022 Telemedicine [id number] Adore Wolff 1940 F Date Provider Department Center 12/06/2022 Jesus-MOE PARHAM [facility] Family History Problem Relation Age of Onset Heart attack Mother Family Status - Relation Status Age at Mother Level of Service:26673 MD OFFICE/OUTPATIENT EST PT MAY NOT REQ PHYS/QHP Normal [facility] GLYCOHEMOGLOBIN A1Con 2021 ADA RECOMMENDATION SEE BELOW Normal [facility] Comment on above: Result Comment: ADA RECOMMENDED LIMIT 4.0 - 6.0 ADA THERAPEUTIC TARGET < 7.0 ACTION SUGGESTED > 7.0 Performed By: #### A 1C #### [facility] [address] [address] [address] Nacho Jeffery Glucose [Mass/Vol] 143 mg/dL Normal [facility] Comment on above: Performed By: #### A 1C #### [facility] [address] [address] [address] Nacho Jeffery HbA1c (Bld) [Mass fraction] 6.6 % Critically high 4.5-6.2 [facility] Comment on above: Performed By: #### A 1C #### [facility] [address] [address] [address] Nacho Jeffery LIPID PROFILEon 11-09-2022 CHOL-HDL RATIO NORM SEE BELOW Normal [facility] Comment on above: Result Comment: 3.3 - 4.4 LOW RISK 4.4 - 7.1 AVERAGE RISK 7.1 - 11.0 MODERATE RISK >11.0 HIGH RISK Performed By: #### M G, URIC, RENAL #### [facility] [address] [address] [address] Nacho Jeffery Cholesterol [Mass/Vol] 141 mg/dL Normal <=200 [facility] Comment on above: Performed By: #### M G, URIC, RENAL #### [facility] [address] [address] [address] Nacho Jeffery Cholesterol in HDL [Mass/Vol] 59 mg/dL Normal 40-60 [facility] Comment on above: Performed By: #### M G, URIC, RENAL #### [facility] [address] [address] [address] Nacho Jeffery Cholesterol in LDL [Mass/Vol] 46.2 mg/dL Normal [facility] Comment on above: Performed By: #### M G, URIC, RENAL #### [facility] [address] [address] [address] Nacho Jeffery Cholesterol.total/C holesterol in HDL [Mass ratio] 2.4 {ratio} Normal [facility] Comment on above: Performed By: #### M G, URIC, RENAL #### [facility] [address] [address] [address] Nacho Jeffery HDL NORMAL > or = 60 mg/dl - LO W CARDIOVASCULAR RISK <40 mg/dl - HIGH CARDIOVASCULAR RISK Normal [facility] Comment on above: Performed By: #### M G, URIC, RENAL #### [facility] [address] [address] [address] Nacho Jeffery LDL CALC NORMAL SEE BELOW Normal [facility] Comment on above: Result Comment: <100 mg/dl OPTIMAL 100 - 129 mg/dl NEAR OR ABOVE OPTIMAL 130 - 159 mg/dl BORDERLINE HIGH 160 - 189 mg/dl HIGH >190 mg/dl VERY HIGH Performed By: #### M G, URIC, RENAL #### [facility] [address] [address] [address] Nacho Jeffery Triglyceride [Mass/Vol] 179 mg/dL Critically high <=150 [facility] Comment on above: Performed By: #### M G, URIC, RENAL #### [facility] [address] [address] [address] Nacho Jeffery VLDL CALC 35.8 mg/dL Normal [facility] Comment on above: Performed By: #### M G, URIC, RENAL #### [facility] [address] [address] [address] Nacho Jeffery PROF 14(COMP METB)on 022 Albumin [Mass/Vol] 3.2 g/dL Critically low 3.4-5.0 Th e [facility] Comment on above: Performed By: #### M G, URIC, RENAL #### [facility] [address] [address] [address] Nacho Jeffery Albumin/Globulin [Mass ratio] 0.8 {ratio} Normal [facility] Comment on above: Performed By: #### M G, URIC, RENAL #### [facility] [address] [address] [address] Nacho Jeffery ALP [Catalytic activity/Vol] 109 U/L Normal 46-116 [facility] Comment on above: Performed By: #### M G, URIC, RENAL #### [facility] [address] [place] [address] Dr. Nacho Jeffery ALT [Catalytic activity/Vol] 38 U/L Normal 14-59 [facility] Comment on above: Performed By: #### M G, URIC, RENAL #### [facility] [address] [place] [address] Dr. Nacho Jeffery Anion gap [Moles/Vol] 13.7 mmol/L Normal [facility] Comment on above: Performed By: #### M G, URIC, RENAL #### [facility] [address] [place] [address] Dr. Nacho Jeffery AST [Catalytic activity/Vol] 27 U/L Normal 15-37 [facility] Comment on above: Performed By: #### M G, URIC, RENAL #### [facility] [address] [place] [address] Dr. Nacho Jeffery Bilirubin [Mass/Vol] 0.4 mg/dL Normal 0.2-1.0 [facility] Comment on above: Performed By: #### M G, URIC, RENAL #### [facility] [address] [place] [address] Dr. Nacho Jeffery Calcium [Mass/Vol] 9.2 mg/dL Normal 8.5-10.1 [facility] Comment on above: Performed By: #### M G, URIC, RENAL #### [facility] [address] [place] [address] Dr. Nacho Jeffery Chloride [Moles/Vol] 105 mmol/L Normal 98-107 [facility] Comment on above: Performed By: #### M G, URIC, RENAL #### [facility] [address] [place] [address] Dr. Nacho Jeffery CO2 [Moles/Vol] 29.5 mmol/L Normal 21.0-32.0 [facility] Comment on above: Performed By: #### M G, URIC, RENAL #### [facility] [address] [place] [address] Dr. Nacho Jeffery Creatinine [Mass/Vol] 1.62 mg/dL Critically high 0.55-1.02 [facility] Comment on above: Performed By: #### M G, URIC, RENAL #### [facility] [address] [address] [address] Nacho Jeffery EGFR-AF MONGOLIAN 37 mL/min/1.73m2 Critically low >=60 [facility] Comment on above: Performed By: #### M G, URIC, RENAL #### [facility] [address] [address] [address] Nacho Jeffery EGFR-NON AF MONGOLIAN 31 mL/min/1.73m2 Critically low >=60 [facility] Comment on above: Performed By: #### M Jamarcus, URIC, RENAL #### [facility] [address] [place] [address] Dr. Nacho Jeffery Globulin (S) [Mass/Vol] 3.8 g/dL Normal [facility] Comment on above: Performed By: #### M Jamarcus, URIC, RENAL #### [facility] [address] [place] [address] Dr. Nacho Jeffery Glucose [Mass/Vol] 102 mg/dL Normal 74-[address] [facility] Comment on above: Performed By: #### M Jamarcus, URIC, RENAL #### [facility] [address] [place] [address] Dr. Nacho Jeffery Potassium [Moles/Vol] 4.2 mmol/L Normal 3.5-5.1 [facility] Comment on above: Performed By: #### M G, URIC, RENAL #### [facility] [address] [address] [address] Nacho Jeffery Protein [Mass/Vol] 7.0 g/dL Normal 6.4-8.[address] [facility] Comment on above: Performed By: #### M G, URIC, RENAL #### [facility] [address] [address] [address] Nacho Jeffery Sodium [Moles/Vol] 144 mmol/L Normal 136-[address] [facility] Comment on above: Performed By: #### M G, URIC, RENAL #### [facility] [address] [address] [address] Nacho Jeffery Urea nitrogen [Mass/Vol] 45.0 mg/dL Critically high 7.0-18.0 [facility] Comment on above: Performed By: #### M G, URIC, RENAL #### [facility] [address] [address] [address] Nacho Jeffery Urea nitrogen/Creatinine [Mass ratio] 27.8 mg/mg Normal [facility] Comment on above: Performed By: #### M G, URIC, RENAL #### [facility] [address] [address] [address] Nacho Jeffery OSMOLALITY URINEon Osmolality, Urine 466 mOsmol/kg Normal [facility] Comment on above: Result Comment: 24 h r : 300 - 900 Random: 50 - 1400 After 12hr fluid restriction: >850 Performed By: #### M G, URIC, RENAL #### [facility] [address] [address] [address] Nacho Jeffery PTH INTACTon 07-13-2022 PTH, Intact 84 pg/mL Critically high 15-65 [facility] Comment on above: Performed By: #### P THINT #### [facility] [address] [address] [address] Nacho Jeffery VIT D 25-OH LABCORPon 2021 Vitamin D, 25-Hydroxy 34.7 ng/mL Normal 30.0-100.0 [facility] Comment on above: Result Comment: Radha min D deficiency has been defined by the [place] of [employer] and an Endocrine Society practice guideline as a level of serum 25-OH vitamin D less than 20 ng/mL (1,2). The Endocrine Society went on to further define vitamin D insufficiency as a level between 21 and 29 ng/mL (2). 1. IOM ([place] [employer]). 2010. Dietary reference intakes for calcium and D. [place]: The National Academies Press. 2. Magdiel MF, Kb NC, Evens PEPPER, et al. Evaluation, treatment, and prevention of vitamin D deficiency: an Endocrine Society clinical practice guideline. JCEM. 2010; 96(0):1911-30. Performed By: #### M G, URIC, RENAL #### [facility] [address] [place] [address] Dr. Nacho Jeffery HEMOGRAM AND PLATELon 2021 Hematocrit (Bld) [Volume fraction] 35.5 % Critically low 36.0-48.0 [facility] Comment on above: Performed By: #### M G, URIC, RENAL #### [facility] [address] [place] [address] Dr. Nacho Jeffery Hemoglobin (Bld) [Mass/Vol] 11.5 g/dL Critically low 12.0-16.0 [facility] Comment on above: Performed By: #### M G, URIC, RENAL #### [facility] [address] [place] [address] Dr. Nacho Jeffery MCH (RBC) [Entitic mass] 30.6 pg Normal 26.7-34.0 [facility] Comment on above: Performed By: #### M G, URIC, RENAL #### [facility] [address] [place] [address] Dr. Nacho Jeffery MCHC (RBC) [Mass/Vol] 32.4 g/dL Normal 29.9-35.2 [facility] Comment on above: Performed By: #### M G, URIC, RENAL #### [facility] [address] [place] [address] Dr. Nacho Jeffery MCV (RBC) [Entitic vol] 94.4 fL Normal 81.0-99.0 [facility] Comment on above: Performed By: #### M G, URIC, RENAL #### [facility] [address] [place] [address] Dr. Nacho Jeffery PLT 192 103/ul Normal 150-450 [facility] Comment on above: Performed By: #### M G, URIC, RENAL #### [facility] [address] [place] [address] Dr. Nacho Jeffery RBC 3.76 106/ul Critically low 4.20-5.40 [facility] Comment on above: Performed By: #### M G, URIC, RENAL #### [facility] [address] [address] [address] Nacho Jeffery WBC 6.1 103/ul Normal 4.0-11.0 [facility] Comment on above: Performed By: #### M G, URIC, RENAL #### [facility] [address] [address] [address] Nacho Jeffery MAGNESIUMon 07-12-2022 Magnesium [Mass/Vol] 1.3 mg/dL Critically low 1.8-2.4 [facility] Comment on above: Performed By: #### U CHRISTOFER, MG, RENAL #### [facility] [address] [address] [address] Nacho Jeffery RENAL FUNCTION PANELon 07-12 Albumin [Mass/Vol] 3.3 g/dL Critically low 3.4-5.0 [facility] Comment on above: Performed By: #### U CHRISTOFER, MG, RENAL #### [facility] [address] [address] [address] Nacho Jeffery Calcium [Mass/Vol] 9.1 mg/dL Normal 8.5-10.1 [facility] Comment on above: Performed By: #### U CHRISTOFER, MG, RENAL #### [facility] [address] [address] [address] Nacho Jeffery Chloride [Moles/Vol] 104 mmol/L Normal 98-107 [facility] Comment on above: Performed By: #### U CHRISTOFER, MG, RENAL #### [facility] [address] [address] [address] Nacho Jeffery CO2 [Moles/Vol] 31.7 mmol/L Normal 21.0-32.0 [facility] Comment on above: Performed By: #### U CHRISTOFER, MG, RENAL #### [facility] [address] [address] [address] Nacho Jeffery Creatinine [Mass/Vol] 1.52 mg/dL Critically high 0.55-1.02 [facility] Comment on above: Performed By: #### U CHRISTOFER, MG, RENAL #### [facility] [address] [address] [address] Nacho Jeffery EGFR-AF MONGOLIAN 40 mL/min/1.73m2 Critically low >=60 [facility] Comment on above: Performed By: #### U CHRISTOFER, MG, RENAL #### [facility] [address] [address] [address] Nacho Jeffery EGFR-NON AF MONGOLIAN 33 mL/min/1.73m2 Critically low >=60 [facility] Comment on above: Performed By: #### U CHRISTOFER, MG, RENAL #### [facility] [address] [place] [address] Dr. Nacho Jeffery Glucose [Mass/Vol] 221 mg/dL Critically high 74-106 [facility] Comment on above: Performed By: #### U CHRISTOFER, MG, RENAL #### [facility] [address] [place] [address] Dr. Nacho Jeffery Phosphate [Mass/Vol] 3.8 mg/dL Normal 2.6-4.7 [facility] Comment on above: Performed By: #### U CHRISTOFER, MG, RENAL #### [facility] [address] [address] [address] Nacho Jeffery Potassium [Moles/Vol] 4.1 mmol/L Normal 3.5-5.1 [facility] Comment on above: Performed By: #### U CHRISTOFER, MG, RENAL #### [facility] [address] [place] [address] Dr. Nacho Jeffery Sodium [Moles/Vol] 143 mmol/L Normal 136-145 [facility] Comment on above: Performed By: #### U CHRISTOFER, MG, RENAL #### [facility] [address] [place] [address] Dr. Nacho Jeffery Urea nitrogen [Mass/Vol] 45.0 mg/dL Critically high 7.0-18.0 [facility] Comment on above: Performed By: #### U CHRISTOFER, MG, RENAL #### [facility] [address] [place] [address] Dr. Nacho Jeffery UA RANDOM W/MICROSCOPICon BACTERIA NONE SEEN Normal NONE SEEN [facility] Comment on above: Performed By: #### M G, URIC, RENAL #### [facility] [address] [address] [address] Nacho Jeffery Bilirubin Ql (U) Negative Normal NEGATIVE [facility] Comment on above: Performed By: #### M G, URIC, RENAL #### [facility] [address] [address] [address] Nacho Jeffery CAST NONE SEEN Normal NONE SEEN The [facility] Comment on above: Performed By: #### M G, URIC, RENAL #### [facility] [address] [address] [address] Nacho Jeffery Clarity (U) CLEAR Normal CLEAR The [facility] Comment on above: Performed By: #### M G, URIC, RENAL #### [facility] [address] [place] [address] Dr. Nacho Jeffery Color (U) LT. YELLOW Normal YELLOW [facility] Comment on above: Performed By: #### M G, URIC, RENAL #### [facility] [address] [address] [address] Nacho Jeffery Crystals LM Nom (Urine sed) NONE SEEN Normal NONE SEEN [facility] Comment on above: Performed By: #### M G, URIC, RENAL #### [facility] [address] [address] [address] Nacho Jeffery Epithelial cells LM Ql (Urine sed) FEW Abnormal NONE SEEN /RARE The [facility] Comment on above: Performed By: #### M G, URIC, RENAL #### [facility] [address] [address] [address] Nacho Jeffery Glucose Ql (U) Negative Normal NEGATIVE [facility] Comment on above: Performed By: #### M G, URIC, RENAL #### [facility] [address] [place] [address] Dr. Nacho Jeffery Hemoglobin Ql (U) Negative Normal NEGATIVE [facility] Comment on above: Performed By: #### M G, URIC, RENAL #### [facility] [address] [address] [address] Nacho Jeffery Ketones Ql (U) Negative Normal NEGATIVE [facility] Comment on above: Performed By: #### M G, URIC, RENAL #### [facility] [address] [address] [address] Nacho Jeffery LEUKOCYTES TRACE Abnormal NEGATIVE The [facility] Comment on above: Performed By: #### M G, URIC, RENAL #### [facility] [address] [address] [address] Nacho Jeffery MUCOUS NONE SEEN Normal NONE SEEN The [facility] Comment on above: Performed By: #### M G, URIC, RENAL #### [facility] [address] [place] [address] Dr. Nacho Jeffery Nitrite Ql (U) Negative Normal NEGATIVE [facility] Comment on above: Performed By: #### M G, URIC, RENAL #### [facility] [address] [place] [address] Dr. Nacho Jeffery pH (U) 6.0 [pH] Normal 5-9 [facility] Comment on above: Performed By: #### M G, URIC, RENAL #### [facility] [address] [place] [address] Dr. Nacho Jeffery RBC NONE SEEN Abnormal 0-2 [facility] Comment on above: Performed By: #### M G, URIC, RENAL #### [facility] [address] [place] [address] Dr. Nacho Jeffery SPEC GRAVITY 1.015 Normal 1.005-<=1.025 [facility] Comment on above: Performed By: #### M G, URIC, RENAL #### [facility] [address] [address] [address] Nacho Jeffery UA PROTEIN Negative Normal NEGATIVE/ TRACE The [facility] Comment on above: Performed By: #### M G, URIC, RENAL #### [facility] [address] [place] [address] Dr. Nacho Jeffery Urobilinogen Qn (U) 0.2 {Zuleyka'U}/dL Normal 0.2 - 1. 0 [facility] Comment on above: Performed By: #### M G, URIC, RENAL #### [facility] [address] [place] [address] Dr. Nacho Jeffery WBC 2-5 Abnormal NONE SEEN The [facility] Comment on above: Performed By: #### M G, URIC, RENAL #### [facility] [address] [address] [address] Nacho Jeffery URIC ACID SERUMon 07-12-2022 Urate [Mass/Vol] 7.9 mg/dL Critically high 2.6-6.0 [facility] Comment on above: Performed By: #### U CHRISTOFER, MG, RENAL #### [facility] [address] [address] [address] Nacho Jeffery URINE T PROTEIN CREAT RATIOo n 07-12-2022 Protein (U) [Mass/Vol] 17.5 mg/dL Critically high <=12.0 [facility] Comment on above: Performed By: #### M G, URIC, RENAL #### [facility] [address] [address] [address] Nacho Jeffery UR PROT CREAT RAT 0.29 Normal The [facility] Comment on above: Performed By: #### M G, URIC, RENAL #### [facility] [address] [address] [address] Nacho Jeffery URINE CREAT 60.37 mg/dL Normal 20.00-300.00 [facility] Comment on above: Performed By: #### M G, URIC, RENAL #### [facility] [address] [address] [address] Nacho Jeffery ALBUMIN, RANDOM URINE W/CREA TININEon 05-11-2022 ALBUMIN, URINE 0.5 mg/dL Normal See Note: [facility] Comment on above: Result Comment: Refe rence Range: Reference Range Not established Performed By: #### 4 96, 7600, 6517, 02760 #### [facility] [address], [address] [place] [id number] Poultry Farmer: Mauricio Kern MD ALBUMIN/CREATININE RATIO, RANDOM URINE [...] Performed By: #### 4 96, 7600, 6517, 96755 #### [facility] of [address], [address] [place] [address] Poultry Farmer: Mauricio Kern MD Creatinine (U) [Mass/Vol] 74 mg/dL Normal 20-275 [facility] Comment on above: Performed By: #### 4 96, 7600, 6517, 16883 #### [facility] [address], [address] [place] [address] Poultry Farmer: Mauricio Kern MD BASIC METABOLIC PANELon 04-14 GLUCOSE Normal [facility] Comment on above: Result Comment: TEST NOT PERFORMED No specimen received. Performed By: #### 4 96, 7600, 6517, 39104 #### [facility] of [address], [address] [place] [address] Poultry Farmer: Mauricio Kern MD HEMOGLOBIN A1con 05-11-2022 HEMOGLOBIN A1c Normal [facility] Comment on above: Result Comment: TEST NOT PERFORMED No specimen received. Performed By: #### 4 96, 7600, 6517, 66600 #### [facility] [address], [address] [place] [address] Poultry Farmer: Mauricio Kern MD LIPID PANEL, STANDARDon 04-14 CHOL/HDLC RATIO Normal [facility] Comment on above: Result Comment: TEST NOT PERFORMED No specimen received. Performed By: #### 4 96, 7600, 6517, 31423 #### [facility] [address], [address] [place] [address] Poultry Farmer: Mauricio Kern MD CHOLESTEROL, TOTAL Normal [facility] Comment on above: Result Comment: TEST NOT PERFORMED No specimen received. Performed By: #### 4 96, 7600, 6517, 11782 #### [facility] [address], [address] [place] [address] Poultry Farmer: Mauricio Kern MD HDL CHOLESTEROL Normal [facility] Comment on above: Result Comment: TEST NOT PERFORMED No specimen received. Performed By: #### 4 96, 7600, 6517, 08793 #### [facility] [address], [address] [place] [address] Poultry Farmer: Mauricio Kern MD LDL-CHOLESTEROL Normal [facility] Comment on above: Result Comment: TEST NOT PERFORMED No specimen received. Performed By: #### 4 96, 7600, 6517, 81385 #### [facility] [address], [address] [place] [address] Poultry Farmer: Mauricio Kern MD NON HDL CHOLESTEROL Normal [facility] Comment on above: Result Comment: TEST NOT PERFORMED No specimen received. Performed By: #### 4 96, 7600, 6517, 21030 #### [facility] [address], [address] [place] [address] Poultry Farmer: Mauricio Kern MD TRIGLYCERIDES Normal [facility] Comment on above: Result Comment: TEST NOT PERFORMED No specimen received. Performed By: #### 4 96, 7600, 6517, 52999 #### [facility] [address], [address] [place] [address] Poultry Farmer: Mauricio Kern MD BASIC METABOLIC PANELon 06-2 Calcium [Mass/Vol] 9.1 mg/dL Normal 8.6-10.4 [facility] Comment on above: Performed By: #### 1 0165, 496, 7600 #### [facility] of [address] [address] Poultry Farmer: Mauricio Kern MD Chloride [Moles/Vol] 105 mmol/L Normal 98-110 [facility] Comment on above: Performed By: #### 1 0165, 496, 7600 #### [facility] of [address], [address] [place] [address] Poultry Farmer: Mauricio Kern MD CO2 [Moles/Vol] 25 mmol/L Normal 20-32 [facility] Comment on above: Performed By: #### 1 0165, 496, 7600 #### [facility] [address], [address] [place] [address] Poultry Farmer: Mauricio Kern MD Creatinine [Mass/Vol] 1.73 mg/dL High 0.60-0.93 [facility] Comment on above: Result Comment: For patients >49 years of age, the reference limit for Creatinine is approximately 13% higher for people identified as -Monegasque. Performed By: #### 1 0165, 496, 7600 #### [facility] [address], [address] [place] [address] Poultry Farmer: Mauricio Kern MD eGFR NON-AFR. MONGOLIAN 28 mL/min/1.73m2 Low > OR = 60 [facility] Comment on above: Performed By: #### 1 016, 496, 7600 #### [facility] [place] [address] Poultry Farmer: Mauricio Kern MD GFR/1.73 sq M.predicted among blacks MDRD (S/P/Bld) [Vol rate/Area] 32 mL/min/{1.73_m2} Low > OR = 60 [facility] Comment on above: Performed By: #### 1 016, 496, 7600 #### [facility] [place] [address] Poultry Farmer: Mauricio Kern MD Glucose [Mass/Vol] 137 mg/dL High 65-99 [facility] Comment on above: Result Comment: Fasting reference interval For someone without known diabetes, a glucose value >125 mg/dL indicates that they may have diabetes and this should be confirmed with a follow-up test. Performed By: #### 1 0165, 496, 7600 #### [facility] [place] [address] Poultry Farmer: Mauricio Kern MD Potassium [Moles/Vol] 4.6 mmol/L Normal 3.5-5.3 [facility] Comment on above: Performed By: #### 1 0165, 496, 7600 #### [facility] [address], [address] [place] [address] Poultry Farmer: Mauricio Kern MD Sodium [Moles/Vol] 142 mmol/L Normal 135-146 [facility] Comment on above: Performed By: #### 1 0165, 496, 7600 #### [facility] [address], [address] [place] [address] Poultry Farmer: Mauricio Kern MD Urea nitrogen [Mass/Vol] 65 mg/dL High 7-25 [facility] Comment on above: Performed By: #### 1 0165, 496, 7600 #### [facility] [address], [address] [place] [address] Poultry Farmer: Mauricio Kern MD Urea nitrogen/Creatinine [Mass ratio] 38 mg/mg High 6-22 [facility] Comment on above: Performed By: #### 1 0165, 496, 7600 #### [facility] [address], [address] [place] [address] Poultry Farmer: Mauricio Kern MD HEMOGLOBIN A1con 05-04-2022 HEMOGLOBIN [...] 0165, 496, 7600 #### [facility] [address], [address] [place] [address] Poultry Farmer: Mauricio Kern MD LIPID PANEL, STANDARDon 06- Cholesterol [Mass/Vol] 163 mg/dL Normal <200 [facility] Comment on above: Order Comment: FASTI NG:YES PATIENT UNABLE TO VOID; ADVISED TO RETURN FOR COLLECTION. FASTING: YES Performed By: #### 1 0165, 496, 7600 #### [facility] [address], [address] [place] [address] Poultry Farmer: Mauricio Kern MD Cholesterol in HDL [Mass/Vol] 51 mg/dL Normal > OR = 50 [facility] Comment on above: Order Comment: FASTI NG:YES PATIENT UNABLE TO VOID; ADVISED TO RETURN FOR COLLECTION. FASTING: YES Performed By: #### 1 0165, 496, 7600 #### [facility] [address], [address] [place] [address] Poultry Farmer: Mauricio Kern MD Cholesterol in LDL [Mass/Vol] [...] LDL-C. Sean SS et al. SHRUTHI. 2013;310(19): 6921-3005 (http://education.eTutor.Healthonomy/faq/AWO983) Performed By: #### 1 0165, 496, 7600 #### [facility] [address], [address] [place] [address] Poultry Farmer: Mauricio Kenr MD Cholesterol.total/C holesterol in HDL [Mass ratio] 3.2 {ratio} Normal <5.0 [facility] Comment on above: Order Comment: FASTI NG:YES PATIENT UNABLE TO VOID; ADVISED TO RETURN FOR COLLECTION. FASTING: YES Performed By: #### 1 0165, 496, 7600 #### [facility] [address], [address] [place] [address] Poultry Farmer: Mauricio Kern MD NON HDL CHOLESTEROL 112 [...] 1 0165, 496, 7600 #### [facility] [address] [place] [address], [address] [place] [address] Poultry Farmer: Mauricio Kern MD Triglyceride [Mass/Vol] 181 mg/dL High <150 [facility] Comment on above: Order Comment: FASTI NG:YES PATIENT UNABLE TO VOID; ADVISED TO RETURN FOR COLLECTION. FASTING: YES Performed By: #### 1 0165, 496, 3480 #### [facility] [address] [place], [place] [address]e , [address] [place], [place] [id number] Poultry Farmer: Mauricio Kern MD PTH INTACTon 03-31-2022 PTH, Intact 111 pg/mL Critically high 15-65 [facility] Comment on above: Performed By: #### M G, URIC, RENAL #### [facility] [address] [address] [address] Nacho Jeffery FERRITINon 03-30-2022 Ferritin [Mass/Vol] 479.0 ng/mL Critically high 8.0-252.0 [facility] Comment on above: Performed By: #### M G, URIC, RENAL #### [facility] [address] [address] [address] Nacho Jeffery HEMOGRAM AND PLATELon 2021 Hematocrit (Bld) [Volume fraction] 38.1 % Normal 36.0-48.0 [facility] Comment on above: Performed By: #### M G, URIC, RENAL #### [facility] [address] [address] [address] Nacho Jeffery Hemoglobin (Bld) [Mass/Vol] 12.9 g/dL Normal 12.0-16.0 [facility] Comment on above: Performed By: #### M G, URIC, RENAL #### [facility] [address] [address] [address] Nacho Jeffery MCH (RBC) [Entitic mass] 32.8 pg Normal 26.7-34.0 [facility] Comment on above: Performed By: #### M G, URIC, RENAL #### [facility] [address] [place] [address] Dr. Nacho Jeffery MCHC (RBC) [Mass/Vol] 33.9 g/dL Normal 29.9-35.2 [facility] Comment on above: Performed By: #### M G, URIC, RENAL #### [facility] [address] [place] [address] Dr. Nacho Jeffery MCV (RBC) [Entitic vol] 96.9 fL Normal 81.0-99.0 [facility] Comment on above: Performed By: #### M G, URIC, RENAL #### [facility] [address] [place] [address] Dr. Nacho Jeffery PLT 191 103/ul Normal 150-450 [facility] Comment on above: Performed By: #### M G, URIC, RENAL #### [facility] [address] [place] [address] Dr. Nacho Jeffery RBC 3.93 106/ul Critically low 4.20-5.40 [facility] Comment on above: Performed By: #### M G, URIC, RENAL #### [facility] [address] [place] [address] Dr. Nacho Jeffery WBC 7.2 103/ul Normal 4.0-11.0 [facility] Comment on above: Performed By: #### M G, URIC, RENAL #### [facility] [address] [place] [address] Dr. Nacho Jeffery IRON AND TIBCon 03-30-2022 % SATURATION 21.6 % Normal [facility] Comment on above: Performed By: #### M G, URIC, RENAL #### [facility] [address] [place] [address] Dr. Nacho Jeffery Iron [Mass/Vol] 63.0 ug/dL Normal 50.0-170.0 [facility] Comment on above: Performed By: #### M G, URIC, RENAL #### [facility] [address] [address] [address] Nacho Jeffery TIBC DIRECT 292.0 ug/dL Normal 250.0-450.0 [facility] Comment on above: Performed By: #### M G, URIC, RENAL #### [facility] [address] [address] [address] Nacho Jeffery MAGNESIUMon 03-30-2022 Magnesium [Mass/Vol] 1.7 mg/dL Critically low 1.8-2.4 [facility] Comment on above: Performed By: #### M G, URIC, RENAL #### [facility] [address] [address] [address] Nacho Jeffery RENAL FUNCTION PANELon 03-30 Albumin [Mass/Vol] 3.4 g/dL Normal 3.4-5.0 [facility] Comment on above: Performed By: #### M G, URIC, RENAL #### [facility] [address] [address] [address] Nacho Jeffery Calcium [Mass/Vol] 9.3 mg/dL Normal 8.5-10.[address] [facility] Comment on above: Performed By: #### M G, URIC, RENAL #### [facility] [address] [address] [address] Nacho Jeffery Chloride [Moles/Vol] 102 mmol/L Normal 98-107 [facility] Comment on above: Performed By: #### M G, URIC, RENAL #### [facility] [address] [address] [address] Nacho Jeffery CO2 [Moles/Vol] 31.7 mmol/L Normal 21.0-32.0 [facility] Comment on above: Performed By: #### M G, URIC, RENAL #### [facility] [address] [place] [address] Dr. Nacho Jeffery Creatinine [Mass/Vol] 2.05 mg/dL Critically high 0.55-1.02 [facility] Comment on above: Performed By: #### M G, URIC, RENAL #### [facility] [address] [address] [address] Nacho Jeffery EGFR-AF MONGOLIAN 28 mL/min/1.73m2 Critically low >=60 [facility] Comment on above: Performed By: #### M G, URIC, RENAL #### [facility] [address] [address] [address] Nacho Jeffery EGFR-NON AF MONGOLIAN 23 mL/min/1.73m2 Critically low >=60 [facility] Comment on above: Performed By: #### M G, URIC, RENAL #### [facility] [address] [address] [address] Nacho Jeffery Glucose [Mass/Vol] 194 mg/dL Critically high 74-106 [facility] Comment on above: Performed By: #### M G, URIC, RENAL #### [facility] [address] [place] [address] Dr. Nacho Jeffery Phosphate [Mass/Vol] 3.2 mg/dL Normal 2.6-4.7 [facility] Comment on above: Performed By: #### M G, URIC, RENAL #### [facility] [address] [address] [address] Nacho Jeffery Potassium [Moles/Vol] 4.6 mmol/L Normal 3.5-5.1 [facility] Comment on above: Performed By: #### M G, URIC, RENAL #### [facility] [address] [address] [address] Nacho Jeffery Sodium [Moles/Vol] 141 mmol/L Normal 136-145 [facility] Comment on above: Performed By: #### M G, URIC, RENAL #### [facility] [address] [address] [address] Nacho Jeffery Urea nitrogen [Mass/Vol] 64.0 mg/dL Critically high 7.0-18.0 [facility] Comment on above: Performed By: #### M G, URIC, RENAL #### [facility] [address] [address] [address] Nacho Jeffery UA RANDOM W/MICROSCOPICon BACTERIA NONE SEEN Normal NONE SEEN [facility] Comment on above: Performed By: #### M G, URIC, RENAL #### [facility] [address] [address] [address] Nacho Jeffery Bilirubin Ql (U) Negative Normal NEGATIVE [facility] Comment on above: Performed By: #### M G, URIC, RENAL #### [facility] [address] [address] [address] Nacho Jeffery CAST NONE SEEN Normal NONE SEEN [facility] Comment on above: Performed By: #### M G, URIC, RENAL #### [facility] [address] [place] [address] Dr. Nacho Jeffery Clarity (U) CLEAR Normal CLEAR [facility] Comment on above: Performed By: #### M G, URIC, RENAL #### [facility] [address] [place] [address] Dr. Nacho Jeffery Color (U) LT. YELLOW Normal YELLOW [facility] Comment on above: Performed By: #### M G, URIC, RENAL #### [facility] [address] [place] [address] Dr. Nacho Jeffery Crystals LM Nom (Urine sed) NONE SEEN Normal NONE SEEN [facility] Comment on above: Performed By: #### M G, URIC, RENAL #### [facility] [address] [place] [address] Dr. Nacho Jeffery Epithelial cells LM Ql (Urine sed) FEW Abnormal NONE SEEN /RARE [facility] Comment on above: Performed By: #### M G, URIC, RENAL #### [facility] [address] [place] [address] Dr. Nacho Jeffery Glucose Ql (U) Negative Normal NEGATIVE [facility] Comment on above: Performed By: #### M G, URIC, RENAL #### [facility] [address] [place] [address] Dr. Nacho Jeffery Hemoglobin Ql (U) Negative Normal NEGATIVE [facility] Comment on above: Performed By: #### M G, URIC, RENAL #### [facility] [address] [place] [address] Dr. Nacho Jeffery Ketones Ql (U) Negative Normal NEGATIVE [facility] Comment on above: Performed By: #### M G, URIC, RENAL #### [facility] [address] [address] [address] Nacho Jeffery LEUKOCYTES SMALL Abnormal NEGATIVE [facility] Comment on above: Performed By: #### M G, URIC, RENAL #### [facility] [address] [address] [address] Nacho Jeffery MUCOUS NONE SEEN Normal NONE SEEN [facility] Comment on above: Performed By: #### M G, URIC, RENAL #### [facility] [address] [address] [address] Nacho Jeffery Nitrite Ql (U) Negative Normal NEGATIVE [facility] Comment on above: Performed By: #### M G, URIC, RENAL #### [facility] [address] [place] [address] Dr. Nacho Jeffery pH (U) 5.5 [pH] Normal 5-9 [facility] Comment on above: Performed By: #### M G, URIC, RENAL #### [facility] [facility] [address] [place] [address] Dr. Nacho Jeffery RBC 0-2 Normal 0-2 The [facility] Comment on above: Performed By: #### M G, URIC, RENAL #### [facility] [address] [place] [address] Dr. Nacho Jeffery SPEC GRAVITY 1.015 Normal 1.005-<=1.025 The [facility] Comment on above: Performed By: #### M G, URIC, RENAL #### [facility] [address] [address] [address] Nacho Jeffery UA PROTEIN Negative Normal NEGATIVE/ TRACE [facility] Comment on above: Performed By: #### M G, URIC, RENAL #### [facility] [address] [address] [address] aNcho Jeffery Urobilinogen Qn (U) 0.2 {Zuleyka'U}/dL Normal 0.2 - 1. 0 [facility] Comment on above: Performed By: #### M G, URIC, RENAL #### [facility] [address] [address] [address] Nacho Jeffery WBC 5-10 Abnormal NONE SEEN [facility] Comment on above: Performed By: #### M G, URIC, RENAL #### [facility] [address] [address] [address] Nacho Jeffery URIC ACID SERUMon 03-30-2022 Urate [Mass/Vol] 7.0 mg/dL Critically high 2.6-6.0 [facility] Comment on above: Performed By: #### M G, URIC, RENAL #### [facility] [address] [place] [address] Dr. Nacho Jeffery URINE T PROTEIN CREAT RATIOo n 03-30-2022 Protein (U) [Mass/Vol] 7.1 mg/dL Normal <=12.0 [facility] Comment on above: Performed By: #### U RTPCR #### [facility] [address] [place] [address] Dr. Nacho Jeffery UR PROT CREAT RAT 0.06 Normal The [facility] Comment on above: Performed By: #### U RTPCR #### [facility] [address] [address] [address] Nacho Jeffery URINE CREAT 113.23 mg/dL Normal 20.00-300.00 The [facility] Comment on above: Performed By: #### U RTPCR #### [facility] [address] [place] [address] Dr. Nacho Jeffery VITAMIN D 25 OHon 03-30-2022 VIT D 25-OH 57.4 ng/mL Normal [facility] Comment on above: Performed By: #### M G, URIC, RENAL #### [facility] [address] [place] [address] Dr. Nacho Jeffery VIT D RANGES SEE BELOW Normal [facility] Comment on above: Result Comment: <20 ng/mL Vit D deficient 20 - <30 ng/mL Vit D insufficient 30 - 100 ng/mL Vit D sufficient >100 ng/mL Potential Toxicity Performed By: #### M G, URIC, RENAL #### [facility] [address] [place], [place] [id number] Dr. Nacho Jeffery [facility] 08-30-2021 Albumin [Mass/Vol] 3.7 g/dL Normal 3.6-5.1 [facility] Comment on above: Performed By: #### 1 0231, 7600 #### [facility] of [address] [address] Poultry Farmer: Mauricio Kern MD Albumin/Globulin [Mass ratio] 1.4 {ratio} Normal 1.0-2.5 [facility] Comment on above: Performed By: #### 1 023, 7600 #### [facility] of [address] [address] Poultry Farmer: Mauricio Kern MD ALP [Catalytic activity/Vol] 98 U/L Normal 37-153 [facility] Comment on above: Performed By: #### 1 023, 7600 #### [facility] of [address] [place] [address] Poultry Farmer: Mauricio Kern MD ALT [Catalytic activity/Vol] 23 U/L Normal 6-29 [facility] Comment on above: Performed By: #### 1 0231, 7600 #### [facility] [place] [address] Poultry Farmer: Mauricio Kern MD AST [Catalytic activity/Vol] 22 U/L Normal 10-35 [facility] Comment on above: Performed By: #### 1 0231, 7600 #### [facility] of [place] [address] Poultry Farmer: Mauricio Kern MD Bilirubin [Mass/Vol] 0.4 mg/dL Normal 0.2-1.2 [facility] Comment on above: Performed By: #### 1 0231, 7600 #### [facility] of [place] [address] Poultry Farmer: Mauricio Kern MD Calcium [Mass/Vol] 9.2 mg/dL Normal 8.6-10.4 [facility] Comment on above: Performed By: #### 1 0231, 7600 #### [facility] of [address], [address] [place] [address] Poultry Farmer: Mauricio Kern MD Chloride [Moles/Vol] 103 mmol/L Normal 98-110 [facility] Comment on above: Performed By: #### 1 0231, 7600 #### [facility] of [address], [address] [place] [address] Poultry Farmer: Mauricio Kern MD CO2 [Moles/Vol] 28 mmol/L Normal 20-32 [facility] Comment on above: Performed By: #### 1 0231, 7600 #### [facility] of [address], [address] [place] [address] Poultry Farmer: Mauricio Kern MD Creatinine [Mass/Vol] 2.22 mg/dL High 0.60-0.93 [facility] Comment on above: Result Comment: For patients >49 years of age, the reference limit for Creatinine is approximately 13% higher for people identified as -Monegasque. Performed By: #### 1 023, 7600 #### [facility] of [address], [address] [place] [address] Poultry Farmer: Mauricio Kern MD eGFR NON-AFR. MONGOLIAN 21 mL/min/1.73m2 Low > OR = 60 [facility] Comment on above: Performed By: #### 1 023, 7600 #### [facility] of [address], [address] [place] [address] Poultry Farmer: Mauricio Kern MD GFR/1.73 sq M.predicted among blacks MDRD (S/P/Bld) [Vol rate/Area] 24 mL/min/{1.73_m2} Low > OR = 60 [facility] Comment on above: Performed By: #### 1 0231, 7600 #### [facility] of [address], [address] [place] [address] Poultry Farmer: Mauricio Kern MD Globulin (S) [Mass/Vol] 2.7 g/dL Normal 1.9-3.7 [facility] Comment on above: Performed By: #### 1 023, 7600 #### [facility] [place] [address] Poultry Farmer: Mauricio Kern MD Glucose [Mass/Vol] 107 mg/dL High 65-99 [facility] Comment on above: Result Comment: Fasting reference interval For someone without known diabetes, a glucose value between 100 and 125 mg/dL is consistent with prediabetes and should be confirmed with a follow-up test. Performed By: #### 1 023, 7600 #### [facility] [place] [address] Poultry Farmer: Mauricio Kern MD Potassium [Moles/Vol] 4.7 mmol/L Normal 3.5-5.3 [facility] Comment on above: Performed By: #### 1 230, 0 #### [facility] [place] [address] Poultry Farmer: Mauricio Kern MD Protein [Mass/Vol] 6.4 g/dL Normal 6.1-8.1 [facility] Comment on above: Performed By: #### 1 230, 7600 #### [facility] [place] [address] Poultry Farmer: Mauricio Kern MD Sodium [Moles/Vol] 141 mmol/L Normal 135-146 [facility] Comment on above: Performed By: #### 1 023, 7600 #### [facility] [place] [address] Poultry Farmer: Mauricio Kern MD Urea nitrogen [Mass/Vol] 69 mg/dL High 7-25 [facility] Comment on above: Performed By: #### 1 023, 7600 #### [facility] of [place] [address] Poultry Farmer: Mauricio Kern MD Urea nitrogen/Creatinine [Mass ratio] 31 mg/mg High 6-22 [facility] Comment on above: Performed By: #### 1 023, 7600 #### [facility] [address], [address] [place] [address] Poultry Farmer: Mauricio Kern MD LIPID PANEL, [address] Cholesterol [Mass/Vol] 142 mg/dL Normal <200 [facility] Comment on above: Order Comment: FASTI NG:YES FASTING: YES Performed By: #### 1 0231, 7600 #### [facility] [address], [address] [place] [address] Poultry Farmer: Mauricio Kern MD Cholesterol in HDL [Mass/Vol] 47 mg/dL Low > OR = 50 [facility] Comment on above: Order Comment: FASTI NG:YES FASTING: YES Performed By: #### 1 023, 7600 #### [facility] [address], [address] [place] [address] Poultry Farmer: Mauricio Kern MD Cholesterol in LDL [Mass/Vol] [...] LDL-C. Sean BREAUX et al. SHRUTHI. 2013;310(19): 4676-7973 (http://education.eTutor.Healthonomy/faq/EKH330) Performed By: #### 1 0231, 0 #### [facility] [address], [address] [place] [address] Poultry Farmer: Mauricio Kern MD Cholesterol.total/C holesterol in HDL [Mass ratio] 3.0 {ratio} Normal <5.0 [facility] Comment on above: Order Comment: FASTI NG:YES FASTING: YES Performed By: #### 1 0231, 7600 #### [facility] [address], [address] [place] [address] Poultry Farmer: Mauricio Kern MD NON HDL CHOLESTEROL 95 mg/dL (calc) Normal <130 [facility] Comment on above: Order Comment: FASTI NG:YES FASTING: YES Result Comment: For patients with diabetes plus 1 major ASCVD risk factor, treating to a non-HDL-C goal of <100 mg/dL (LDL-C of <70 mg/dL) is considered a therapeutic option. Performed By: #### 1 0231, 7600 #### [facility] [address], [address] [place] [address] Poultry Farmer: Mauricio Kern MD Triglyceride [Mass/Vol] 188 mg/dL High <150 [facility] Comment on above: Order Comment: FASTI NG:YES FASTING: YES Performed By: #### 1 0231, 7600 #### [facility] [address], [address] [place] [address] Poultry Farmer: Mauricio Kern MD BASIC METABOLIC PANEL 05- Calcium [Mass/Vol] 10.0 mg/dL Normal 8.6-10.3 [facility] Comment on above: Performed By: #### 0 0071 #### [facility] [address] [address], [facility] Chloride [Moles/Vol] 101 mmol/L Normal 98-107 [facility] Comment on above: Performed By: #### 0 0071 #### [facility] [address] [place] [address], [place] CO2 [Moles/Vol] 28 mmol/L Normal 21-31 [facility] Comment on above: Performed By: #### 0 0071 #### [facility] [address] [place] [address], [place] Creatinine [Mass/Vol] 1.96 mg/dL High 0.60-1.20 [facility] Comment on above: Performed By: #### 0 0071 #### [facility] [address] [place] [address], [place] eGFR- 30 ml/min/1.73sq m Abnormal >60 [facility] Comment on above: Result Comment: Calc ulation may not be valid for patients over 70 years Performed By: #### 0 0071 #### [facility] [address] [place] [address], [facility] eGFR- non- 24 ml/min/1.73sq m Abnormal >60 [facility] Comment on above: Result Comment: Calc ulation may not be valid for patients over 70 years Performed By: #### 0 0071 #### [facility] [address] [place] [address], [place] Glucose [Mass/Vol] 171 mg/dL High 70-100 [facility] Comment on above: Performed By: #### 0 0071 #### [facility] [address] [place] [address], [place] Potassium [Moles/Vol] 3.9 mmol/L Normal 3.5-5.1 [facility] Comment on above: Performed By: #### 0 0071 #### [facility] [address] [place] [address], [place] Sodium [Moles/Vol] 139 mmol/L Normal 136-145 [facility] Comment on above: Performed By: #### 0 0071 #### [facility] [address] [place] [address], [place] Urea nitrogen [Mass/Vol] 66 mg/dL High 7-25 [facility] Comment on above: Performed By: #### 0 0071 #### [facility] [address] [place] [address], [place] Cardiovascular Lab Reporton 03-30-2021 Cardiovascular Lab Report [facility] Patient Name: Adore Wolff [facility] MR #: [id number] Physician: Moe Parham, Department of M.D. Medicine Service Date: 03/30/2021 Division of Birthdate: 1940 Cardiology Room #: Adult Cardiovascular Services [facility] [address] [place] [address] Cardiovascular Laboratory Report FINAL IMPRESSIONS: 1. Moderate [...] enzyme inhibitor/receptor micki. 4. Follow [facility] with [facility] [...] the left radial artery was obtained. A 6-Ugandan glide sheath was inserted without difficulty. Bilateral selective coronary angiography was performed using JL4 and a 4-Ugandan 3DRC catheter. After reviewing the images and [...] Parham M.D. Date Trans: 03/30/2021 03:19 P/molly [id number] cc: Fernie Clark M.D. [address], [address] [place] [id number] [facility] Vital Signs Date Time Vital Sign Value Performing Clinician Facility 12-26-2024 09:33-0500 Body temperature 97.7 [degF] Fernie Clark DO [facility] Phone[facility] 12-26-2024 09:33-0500 Diastolic blood pressure 78 mm[Hg] Fernie MolinaSuper Vitamin Dng DO Work Phone: [facility] 12-26-2024 09:33-0500 Heart rate 64 /min Fernie MolinaSuper Vitamin Dng DO [facility] 12-26-2024 09:33-0500 Respiratory rate 18 /min Fernie MolinaLevel [employer] DO [facility] 12-26-2024 09:33-0500 SaO2% (BldA) [Mass fraction] 98 % FernieFClubng DO Work Phone: [facility] 12-26-2024 09:33-0500 Systolic blood pressure 178 mm[Hg] Fernie MolinaSuper Vitamin Dng DO Work Phone: [employer] [facility] 12-19-2024 11:12-0500 Body mass index (BMI) [Ratio] 43.27 kg/m2 Fernie Furlong DO Work Phone: [facility] [employer] 12-19-2024 11:12-0500 Body temperature 97.7 [degF] Fernie Furlong DO Work Phone: [facility] [employer] 12-19-2024 11:12-0500 Body weight 117.94 kg Fernie Furlong DO Work Phone: [facility] [employer] 12-19-2024 11:12-0500 Heart rate 60 /min Space Apeng DO Work Phone: [facility] [employer] 12-19-2024 11:12-0500 Respiratory rate 18 /min Space Apeng DO Work Phone: [facility] [employer] 12-19-2024 11:12-0500 SaO2% (BldA) [Mass fraction] 95 % Space Apeng DO Work Phone: [facility] 11-04-2024 09:42-0500 Body height 165.1 cm Pfo 1 [facility] 11-04-2024 09:42-0500 Body mass index (BMI) [Ratio] 45.26 kg/m2 Pfo 1 [facility] 11-04-2024 09:42-0500 Body temperature 97.5 [degF] Pfo 1 [facility] [employer] [facility] 11-04-2024 09:42-0500 Body weight 123.38 kg Pfo 1 [facility] 11-04-2024 09:42-0500 Diastolic blood pressure 65 mm[Hg] Pfo 1 [facility] 11-04-2024 09:42-0500 Heart rate 65 /min Pfo 1 [facility] 11-04-2024 09:42-0500 Respiratory rate 18 /min Pfo 1 [facility] [employer] [facility] 11-04-2024 09:42-0500 SaO2% (BldA) [Mass fraction] 98 % Pfo 1 [facility] 11-04-2024 09:42-0500 Systolic blood pressure 153 mm[Hg] Pfo 1 [facility] 10-07-2024 09:29-0500 Body height 165.1 cm Pfo 2 [facility] 10-07-2024 09:29-0500 Body mass index (BMI) [Ratio] 45.26 kg/m2 Pfo 2 [facility] 10-07-2024 09:29-0500 Body temperature 97.59 [degF] Pfo 2 [facility] 10-07-2024 09:29-0500 Body weight 123.38 kg Pfo 2 [facility] 10-07-2024 09:29-0500 Diastolic blood pressure 63 mm[Hg] Pfo 2 [facility] 10-07-2024 09:29-0500 Heart rate 72 /min Pfo 2 [facility] 10-07-2024 09:29-0500 Respiratory rate 18 /min Pfo 2 [facility] 10-07-2024 09:29-0500 SaO2% (BldA) [Mass fraction] 94 % Pfo 2 [facility] 10-07-2024 09:29-0500 Systolic blood pressure 155 mm[Hg] Pfo 2 [facility] 10-01-2024 09:24-0500 Body height 165.1 cm Pfo 5 [facility] 10-01-2024 09:24-0500 Body mass index (BMI) [Ratio] 45.26 kg/m2 Pfo 5 [facility] 10-01-2024 09:24-0500 Body temperature 97.39 [degF] Pfo 5 [facility] 10-01-2024 09:24-0500 Body weight 123.38 kg Pfo 5 [facility] 10-01-2024 09:24-0500 Diastolic blood pressure 56 mm[Hg] Pfo 5 [facility] 10-01-2024 09:24-0500 Heart rate 76 /min Pfo 5 [facility] 10-01-2024 09:24-0500 Respiratory rate 16 /min Pfo 5 [facility] 10-01-2024 09:24-0500 SaO2% (BldA) [Mass fraction] 96 % Pfo 5 [facility] 10-01-2024 09:24-0500 Systolic blood pressure 153 mm[Hg] Pfo 5 [facility] 09-10-2024 09:21-0400 Body temperature 97.7 [degF] Pfo 5 [facility] 09-10-2024 09:21-0400 Diastolic blood pressure 61 mm[Hg] Pfo 5 [facility] 09-10-2024 09:21-0400 Heart rate 68 /min Pfo 5 [facility] 09-10-2024 09:21-0400 Respiratory rate 18 /min Pfo 5 [facility] 09-10-2024 09:21-0400 SaO2% (BldA) [Mass fraction] 99 % Pfo 5 [facility] 09-10-2024 09:21-0400 Systolic blood pressure 164 mm[Hg] Pfo 5 [facility] 08-27-2024 09:270400 Body height 165.1 cm Pfo 5 [facility] 08-27-2024 09:27-0400 Body mass index (BMI) [Ratio] 46.1 kg/m2 Pfo 5 [facility] 08-27-2024 09:27-0400 Body temperature 97.39 [degF] Pfo 5 [facility] 08-27-2024 09:27-0400 Body weight 125.65 kg Pfo 5 [facility] 08-27-2024 09:27-0400 Diastolic blood pressure 86 mm[Hg] Pfo 5 [facility] 08-27-2024 09:27-0400 Heart rate 75 /min Pfo 5 [facility] 08-27-2024 09:27-0400 Respiratory rate 16 /min Pfo 5 [facility] 08-27-2024 09:27-0400 SaO2% (BldA) [Mass fraction] 98 % Pfo 5 [facility] 08-27-2024 09:27-0400 Systolic blood pressure 151 mm[Hg] Pfo 5 [facility] 08-20-2024 09:17-0400 Body height 165.1 cm Pfo 5 [facility] 08-20-2024 09:17-0400 Body mass index (BMI) [Ratio] 46.1 kg/m2 Pfo 5 [facility] 08-20-2024 09:17-0400 Body temperature 97.59 [degF] Pfo 5 [facility] 08-20-2024 09:17-0400 Body weight 125.65 kg Pfo 5 [facility] 08-20-2024 09:17-0400 Diastolic blood pressure 67 mm[Hg] Pfo 5 [facility] 08-20-2024 09:17-0400 Heart rate 66 /min Pfo 5 [facility] 08-20-2024 09:17-0400 Respiratory rate 16 /min Pfo 5 [facility] 08-20-2024 09:17-0400 SaO2% (BldA) [Mass fraction] 99 % Pfo 5 [facility] 08-20-2024 09:17-0400 Systolic blood pressure 167 mm[Hg] Pfo 5 [facility] 08-13-2024 09:20-0400 Body height 165.1 cm Pfo 4 [facility] 08-13-2024 09:20-0400 Body mass index (BMI) [Ratio] 46.1 kg/m2 Pfo 4 [facility] 08-13-2024 09:20-0400 Body temperature 97.59 [degF] Pfo 4 [facility] 08-13-2024 09:20-0400 Body weight 125.65 kg Pfo 4 [facility] 08-13-2024 09:20-0400 Diastolic blood pressure 65 mm[Hg] Pfo 4 [facility] 08-13-2024 09:20-0400 Heart rate 70 /min Pfo 4 [facility] 08-13-2024 09:20-0400 Respiratory rate 16 /min Pfo 4 [facility] 08-13-2024 09:20-0400 SaO2% (BldA) [Mass fraction] 96 % Pfo 4 [facility] 08-13-2024 09:20-0400 Systolic blood pressure 169 mm[Hg] Pfo 4 [facility] 08-06-2024 09:27-0400 Body height 165.1 cm Pfo 5 [facility] 08-06-2024 09:27-0400 Body mass index (BMI) [Ratio] 46.1 kg/m2 Pfo 5 [facility] 08-06-2024 09:27-0400 Body temperature 97.5 [degF] Pfo 5 [facility] 08-06-2024 09:27-0400 Body weight 125.65 kg Pfo 5 [facility] 08-06-2024 09:27-0400 Diastolic blood pressure 54 mm[Hg] Pfo 5 [facility] 08-06-2024 09:27-0400 Heart rate 73 /min Pfo 5 [facility] 08-06-2024 09:27-0400 Respiratory rate 16 /min Pfo 5 [facility] 08-06-2024 09:27-0400 SaO2% (BldA) [Mass fraction] 95 % Pfo 5 [facility] 08-06-2024 09:27-0400 Systolic blood pressure 160 mm[Hg] Pfo 5 [facility] 07-30-2024 09:22-0400 Body height 165.1 cm Pfo 5 [facility] 07-30-2024 09:22-0400 Body mass index (BMI) [Ratio] 46.26 kg/m2 Pfo 5 [facility] 07-30-2024 09:22-0400 Body temperature 97.2 [degF] Pfo 5 [facility] 07-30-2024 09:22-0400 Body weight 126.1 kg Pfo 5 [facility] 07-30-2024 09:22-0400 Diastolic blood pressure 63 mm[Hg] Pfo 5 [facility] 07-30-2024 09:22-0400 Heart rate 68 /min Pfo 5 [facility] 07-30-2024 09:22-0400 Respiratory rate 16 /min Pfo 5 [facility] 07-30-2024 09:22-0400 SaO2% (BldA) [Mass fraction] 94 % Pfo 5 [facility] 07-30-2024 09:22-0400 Systolic blood pressure 148 mm[Hg] Pfo 5 [facility] 07-23-2024 09:25-0400 Body height 165.1 cm Pfo 5 [facility] 07-23-2024 09:25-0400 Body mass index (BMI) [Ratio] 46.26 kg/m2 Pfo 5 [facility] 07-23-2024 09:25-0400 Body weight 126.1 kg Pfo 5 [facility] 07-23-2024 09:25-0400 Diastolic blood pressure 55 mm[Hg] Pfo 5 [facility] 07-23-2024 09:25-0400 Heart rate 62 /min Pfo 5 [facility] 07-23-2024 09:25-0400 Respiratory rate 16 /min Pfo 5 [facility] 07-23-2024 09:25-0400 SaO2% (BldA) [Mass fraction] 97 % Pfo 5 [facility] 07-23-2024 09:25-0400 Systolic blood pressure 155 mm[Hg] Pfo 5 [facility] 07-16-2024 09:44-0400 Body height 165.1 cm Pfo 5 [facility] 07-16-2024 09:44-0400 Body mass index (BMI) [Ratio] 46.26 kg/m2 Pfo 5 [facility] 07-16-2024 09:44-0400 Body temperature 97.7 [degF] Pfo 5 [facility] 07-16-2024 09:44-0400 Body weight 126.1 kg Pfo 5 [facility] [facility] 07-16[facility]24 09:44-0400 Diastolic blood pressure 54 mm[Hg] Pfo 5 [facility] 07-16-2024 09:44-0400 Heart rate 70 /min Pfo 5 [facility] 07-16-2024 09:44-0400 Respiratory rate 16 /min Pfo 5 [facility] 07-16-2024 09:44-0400 SaO2% (BldA) [Mass fraction] 100 % Pfo 5 [facility] 07-16-2024 09:44-0400 Systolic blood pressure 160 mm[Hg] Pfo 5 [facility] 07-09-2024 09:49-0400 Body height 165.1 cm Pfo 1 [facility] 07-09-2024 09:49-0400 Body mass index (BMI) [Ratio] 46.26 kg/m2 Pfo 1 [facility] 07-09-2024 09:49-0400 Body temperature 98.2 [degF] Pfo 1 [facility] 07-09-2024 09:49-0400 Body weight 126.1 kg Pfo 1 [facility] 07-09-2024 09:49-0400 Diastolic blood pressure 52 mm[Hg] Pfo 1 [facility] 07-09-2024 09:49-0400 Heart rate 78 /min Pfo 1 [facility] 07-09-2024 09:49-0400 Respiratory rate 16 /min Pfo 1 [facility] 07-09-2024 09:49-0400 SaO2% (BldA) [Mass fraction] 96 % Pfo 1 [facility] 07-09-2024 09:49-0400 Systolic blood pressure 147 mm[Hg] Pfo 1 [facility] 07-02-2024 09:34-0400 Body height 165.1 cm Pfo 1 [facility] 07-02-2024 09:34-0400 Body mass index (BMI) [Ratio] 46.26 kg/m2 Pfo 1 [facility] 07-02-2024 09:34-0400 Body temperature 97.39 [degF] Pfo 1 [facility] 07-02-2024 09:34-0400 Body weight 126.1 kg Pfo 1 [facility] 07-02-2024 09:34-0400 Diastolic blood pressure 60 mm[Hg] Pfo 1 [facility] 07-02-2024 09:34-0400 Heart rate 66 /min Pfo 1 [facility] 07-02-2024 09:34-0400 Respiratory rate 16 /min Pfo 1 [facility] 07-02-2024 09:34-0400 SaO2% (BldA) [Mass fraction] 98 % Pfo 1 [facility] 07-02-2024 09:34-0400 Systolic blood pressure 153 mm[Hg] Pfo 1 [facility] 06-25-2024 [id number] Body height 165.1 cm Pfo 7 [facility] 06-25-2024 09:26-0400 Body mass index (BMI) [Ratio] 46.26 kg/m2 Pfo 7 [facility] 06-25-2024 09:26-0400 Body temperature 97.39 [degF] Pfo 7 [facility] 06-25-2024 09:26-0400 Body weight 126.1 kg Pfo 7 [facility] 06-25-2024 09:26-0400 Diastolic blood pressure 66 mm[Hg] Pfo 7 [facility] 06-25-2024 09:26-0400 Heart rate 83 /min Pfo 7 [facility] 06-25-2024 09:26-0400 Respiratory rate 16 /min Pfo 7 [facility] 06-25-2024 09:26-0400 SaO2% (BldA) [Mass fraction] 98 % Pfo 7 [facility] 06-25-2024 09:26-0400 Systolic blood pressure 156 mm[Hg] Pfo 7 [facility] 06-18-2024 09:30-0400 Body height 165.1 cm Pfo 1 [facility] 06-18-2024 09:30-0400 Body mass index (BMI) [Ratio] 46.1 kg/m2 Pfo 1 [facility] 06-18-2024 09:30-0400 Body temperature 97.5 [degF] Pfo 1 [facility] 06-18-2024 09:30-0400 Body weight 125.65 kg Pfo 1 [facility] 06-18-2024 09:30-0400 Diastolic blood pressure 46 mm[Hg] Pfo 1 [facility] 06-18-2024 09:30-0400 Heart rate 72 /min Pfo 1 [facility] 06-18-2024 09:30-0400 Respiratory rate 20 /min Pfo 1 [facility] 06-18-2024 09:30-0400 SaO2% (BldA) [Mass fraction] 95 % Pfo 1 [facility] 06-18-2024 09:30-0400 Systolic blood pressure 148 mm[Hg] Pfo 1 [facility] 06-11-2024 09:21-0400 Body height 165.1 cm Pfo 1 [facility] 06-11-2024 09:21-0400 Body mass index (BMI) [Ratio] 46.26 kg/m2 Pfo 1 [facility] 06-11-2024 09:21-0400 Body temperature 97.59 [degF] Pfo 1 [facility] 06-11-2024 09:21-0400 Body weight 126.1 kg Pfo 1 [facility] 06-11-2024 09:21-0400 Diastolic blood pressure 60 mm[Hg] Pfo 1 [facility] 06-11-2024 09:21-0400 Heart rate 88 /min Pfo 1 [facility] 06-11-2024 09:21-0400 Respiratory rate 20 /min Pfo 1 [facility] 06-11-2024 09:21-0400 SaO2% (BldA) [Mass fraction] 96 % Pfo 1 [facility] 06-11-2024 09:21-0400 Systolic blood pressure 147 mm[Hg] Pfo 1 [facility] 05-28-2024 09:34-0400 Body height 165.1 cm Pfo 1 [facility] 05-28-2024 09:34-0400 Body mass index (BMI) [Ratio] 46.43 kg/m2 Pfo 1 [facility] 05-28-2024 09:34-0400 Body temperature 97.5 [degF] Pfo 1 [facility] 05-28-2024 09:34-0400 Body weight 126.55 kg Pfo 1 [facility] 05-28-2024 09:34-0400 Diastolic blood pressure 66 mm[Hg] Pfo 1 [facility] 05-28-2024 09:34-0400 Heart rate 71 /min Pfo 1 [facility] 05-28-2024 09:34-0400 Respiratory rate 20 /min Pfo 1 [facility] 05-28-2024 09:34-0400 SaO2% (BldA) [Mass fraction] 99 % Pfo 1 [facility] 05-28-2024 09:34-0400 Systolic blood pressure 152 mm[Hg] Pfo 1 [facility] 05-27-2024 13:09-0400 Body height 165.1 cm Fernie Furlong DO Work Phone: [facility] 05-27-2024 13:09-0400 Body mass index (BMI) [Ratio] 46.64 kg/m2 Fernie Furlong DO Work Phone: [facility] 05-27-2024 13:09-0400 Body temperature 97.9 [degF] Fernie Furlong DO Work Phone: [facility] 05-27-2024 13:09-0400 Body weight 127.14 kg Fernie Furlong DO Work Phone: [facility] 05-27-2024 13:09-0400 Diastolic blood pressure 60 mm[Hg] Fernie Furlong DO Work Phone: [facility] 05-27-2024 13:09-0400 Heart rate 74 /min Fernie Furlong DO Work Phone: [facility] 05-27-2024 13:09-0400 Respiratory rate 18 /min Fernie Furlong DO Work Phone: [facility] 05-27-2024 13:09-0400 SaO2% (BldA) [Mass fraction] 94 % Fernie Furlong DO Work Phone: [facility] 05-27-2024 13:09-0400 Systolic blood pressure 140 mm[Hg] Fernie Furlong DO Work Phone: [facility] 05-21-2024 09:27-0400 Body height 165.1 cm Pfo 1 [facility] 05-21-2024 09:27-0400 Body mass index (BMI) [Ratio] 46.43 kg/m2 Pfo 1 [facility] 05-21-2024 09:27-0400 Body temperature 97.7 [degF] Pfo 1 [facility] 05-21-2024 09:27-0400 Body weight 126.55 kg Pfo 1 [facility] 05-21-2024 09:27-0400 Diastolic blood pressure 46 mm[Hg] Pfo 1 [facility] 05-21-2024 09:27-0400 Heart rate 63 /min Pfo 1 [facility] 05-21-2024 09:27-0400 Respiratory rate 20 /min Pfo 1 [facility] 05-21-2024 09:27-0400 SaO2% (BldA) [Mass fraction] 95 % Pfo 1 [facility] 05-21-2024 09:27-0400 Systolic blood pressure 167 mm[Hg] Pfo 1 [facility] 05-14-2024 09:15-0400 Body height 165.1 cm Pfo 1 [facility] 05-14-2024 09:15-0400 Body mass index (BMI) [Ratio] 46.43 kg/m2 Pfo 1 [facility] 05-14-2024 09:15-0400 Body temperature 97.81 [degF] Pfo 1 [facility] 05-14-2024 09:15-0400 Body weight 126.55 kg Pfo 1 [facility] 05-14-2024 09:15-0400 Diastolic blood pressure 59 mm[Hg] Pfo 1 [facility] 05-14-2024 09:15-0400 Heart rate 72 /min Pfo 1 [facility] 05-14-2024 09:15-0400 Respiratory rate 20 /min Pfo 1 [facility] 05-14-2024 09:15-0400 SaO2% (BldA) [Mass fraction] 95 % Pfo 1 [facility] 05-14-2024 09:15-0400 Systolic blood pressure 161 mm[Hg] Pfo 1 [facility] 05-07-2024 09:25-0400 Body height 165.1 cm Pfo 1 [facility] 05-07-2024 09:25-0400 Body mass index (BMI) [Ratio] 47.09 kg/m2 Pfo 1 [facility] 05-07-2024 09:25-0400 Body temperature 98.4 [degF] Pfo 1 [facility] 05-07-2024 09:25-0400 Body weight 128.37 kg Pfo 1 [facility] 05-07-2024 09:25-0400 Diastolic blood pressure 47 mm[Hg] Pfo 1 [facility] 05-07-2024 09:25-0400 Heart rate 69 /min Pfo 1 [facility] 05-07-2024 09:25-0400 Respiratory rate 20 /min Pfo 1 [facility] 05-07-2024 09:25-0400 SaO2% (BldA) [Mass fraction] 95 % Pfo 1 [facility] 05-07-2024 09:25-0400 Systolic blood pressure 169 mm[Hg] Pfo 1 [facility] 05-01-2024 13:52-0400 Body height 165.1 cm [facility] 05-01-2024 13:52-0400 Body mass index (BMI) [Ratio] 47.5 kg/m2 [facility] 05-01-2024 13:52-0400 Body temperature 96.7 [degF] [facility] 05-01-2024 13:52-0400 Body weight 129.38 kg [facility] 05-01-2024 13:52-0400 Diastolic blood pressure 60 mm[Hg] [facility] 05-01-2024 13:52-0400 Heart rate 76 /min [facility] 05-01-2024 13:52-0400 Respiratory rate 18 /min [facility] 05-01-2024 13:52-0400 SaO2% (BldA) [Mass fraction] 95 % [facility] 05-01-2024 13:52-0400 Systolic blood pressure 130 mm[Hg] [facility] 04-30-2024 09:19-0400 Body height 165.1 cm Pfo 1 [facility] 04-30-2024 09:19-0400 Body mass index (BMI) [Ratio] 47.26 kg/m2 Pfo 1 [facility] 04-30-2024 09:190400 Body temperature 97.81 [degF] Pfo 1 [facility] 04-30-2024 09:190400 Body weight 128.82 kg Pfo 1 [facility] 04-30-2024 09:19-0400 Diastolic blood pressure 68 mm[Hg] Pfo 1 [facility] 04-30-2024 09:19-0400 Heart rate 65 /min Pfo 1 [facility] 04-30-2024 09:19-0400 Respiratory rate 20 /min Pfo 1 [facility] 04-30-2024 09:190400 SaO2% (BldA) [Mass fraction] 93 % Pfo 1 [facility] 04-30-2024 09:19-0400 Systolic blood pressure 175 mm[Hg] Pfo 1 [facility] 04-23-2024 [id number] Body height 165.1 cm Pfo 6 [facility] 04-23-2024 09:28-0400 Body mass index (BMI) [Ratio] 46.93 kg/m2 Pfo 6 [facility] 04-23-2024 09:28-0400 Body temperature 97.7 [degF] Pfo 6 [facility] 04-23-2024 [id number] Body weight 127.91 kg Pfo 6 [facility] 04-23-2024 09:28-0400 Diastolic blood pressure 56 mm[Hg] Pfo 6 [facility] 04-23-2024 09:28-0400 Heart rate 69 /min Pfo 6 [facility] 04-23-2024 09:28-0400 Respiratory rate 24 /min Pfo 6 [facility] 04-23-2024 09:28-0400 SaO2% (BldA) [Mass fraction] 98 % Pfo 6 [facility] 04-23-2024 09:28-0400 Systolic blood pressure 177 mm[Hg] Pfo 6 [facility] 04-16-2024 09:190400 Body height 165.1 cm Pfo 6 [facility] 04-16-2024 09:19-0400 Body mass index (BMI) [Ratio] 46.76 kg/m2 Pfo 6 [facility] 04-16-2024 09:19-0400 Body temperature 97.39 [degF] Pfo 6 [facility] 04-16-2024 09:19-0400 Body weight 127.46 kg Pfo 6 [facility] 04-16-2024 09:19-0400 Diastolic blood pressure 65 mm[Hg] Pfo 6 [facility] 04-16-2024 09:19-0400 Heart rate 72 /min Pfo 6 [facility] 04-16-2024 09:19-0400 Respiratory rate 18 /min Pfo 6 [facility] 04-16-2024 09:19-0400 SaO2% (BldA) [Mass fraction] 96 % Pfo 6 [facility] 04-16-2024 09:19-0400 Systolic blood pressure 177 mm[Hg] Pfo 6 [facility] 04-09-2024 09:33-0400 Body height 165.1 cm Pfo 6 [facility] 04-09-2024 09:33-0400 Body mass index (BMI) [Ratio] 46.59 kg/m2 Pfo 6 [facility] 04-09-2024 09:33-0400 Body temperature 97.59 [degF] Pfo 6 [facility] 04-09-2024 09:33-0400 Body weight 127.01 kg Pfo 6 [facility] 04-09-2024 09:33-0400 Diastolic blood pressure 66 mm[Hg] Pfo 6 [facility] 04-09-2024 09:33-0400 Heart rate 66 /min Pfo 6 [facility] 04-09-2024 09:33-0400 Respiratory rate 20 /min Pfo 6 [facility] 04-09-2024 09:33-0400 SaO2% (BldA) [Mass fraction] 96 % Pfo 6 [facility] 04-09-2024 09:33-0400 Systolic blood pressure 169 mm[Hg] Pfo 6 [facility] 04-02-2024 09:24-0400 Body height 165.1 cm Pfo 4 [facility] 04-02-2024 09:24-0400 Body mass index (BMI) [Ratio] 46.43 kg/m2 Pfo 4 [facility] 04-02-2024 09:24-0400 Body temperature 97.7 [degF] Pfo 4 [facility] 04-02-2024 09:24-0400 Body weight 126.55 kg Pfo 4 [facility] 04-02-2024 09:24-0400 Diastolic blood pressure 58 mm[Hg] Pfo 4 [facility] 04-02-2024 09:24-0400 Heart rate 71 /min Pfo 4 [facility] 04-02-2024 09:24-0400 Respiratory rate 20 /min Pfo 4 [facility] 04-02-2024 09:24-0400 SaO2% (BldA) [Mass fraction] 96 % Pfo 4 [facility] 04-02-2024 09:24-0400 Systolic blood pressure 168 mm[Hg] Pfo 4 [facility] 03-26-2024 09:32-0400 Body height 165.1 cm Pfo 6 [facility] 03-26-2024 09:32-0400 Body mass index (BMI) [Ratio] 46.1 kg/m2 Pfo 6 [facility] 03-26-2024 09:32-0400 Body temperature 97.7 [degF] Pfo 6 [facility] 03-26-2024 09:32-0400 Body weight 125.65 kg Pfo 6 [facility] 03-26-2024 09:32-0400 Diastolic blood pressure 67 mm[Hg] Pfo 6 [facility] 03-26-2024 09:32-0400 Heart rate 67 /min Pfo 6 [facility] 03-26-2024 09:32-0400 Respiratory rate 20 /min Pfo 6 [facility] 03-26-2024 09:32-0400 SaO2% (BldA) [Mass fraction] 95 % Pfo 6 [facility] 03-26-2024 09:32-0400 Systolic blood pressure 152 mm[Hg] Pfo 6 [facility] 03-19-2024 09:37-0400 Body height 165.1 cm Pfo 4 [facility] 03-19-2024 09:37-0400 Body mass index (BMI) [Ratio] 45.93 kg/m2 Pfo 4 [facility] 03-19-2024 09:37-0400 Body temperature 97.9 [degF] Pfo 4 [facility] 03-19-2024 09:37-0400 Body weight 125.19 kg Pfo 4 [facility] 03-19-2024 09:37-0400 Diastolic blood pressure 67 mm[Hg] Pfo 4 [facility] 03-19-2024 09:37-0400 Heart rate 65 /min Pfo 4 [facility] 03-19-2024 09:37-0400 Respiratory rate 20 /min Pfo 4 [facility] 03-19-2024 09:37-0400 SaO2% (BldA) [Mass fraction] 93 % Pfo 4 [facility] 03-19-2024 09:37-0400 Systolic blood pressure 180 mm[Hg] Pfo 4 [facility] 03-12-2024 09:30-0400 Body height 165.1 cm Pfo 7 [facility] 03-12-2024 09:30-0400 Body mass index (BMI) [Ratio] 45.83 kg/m2 Pfo 7 [facility] 03-12-2024 09:30-0400 Body temperature 97.5 [degF] Pfo 7 [facility] 03-12-2024 09:30-0400 Body weight 124.92 kg Pfo 7 [facility] 03-12-2024 09:30-0400 Diastolic blood pressure 55 mm[Hg] Pfo 7 [facility] 03-12-2024 09:30-0400 Heart rate 60 /min Pfo 7 [facility] 03-12-2024 09:30-0400 Respiratory rate 20 /min Pfo 7 [facility] 03-12-2024 09:30-0400 SaO2% (BldA) [Mass fraction] 95 % Pfo 7 [facility] 03-12-2024 09:30-0400 Systolic blood pressure 181 mm[Hg] Pfo 7 [facility] 02-25-2024 14:54-0400 Body height 165.1 cm Fernie Furlong DO Work Phone: [facility] 02-25-2024 14:54-0400 Body mass index (BMI) [Ratio] 44.56 kg/m2 Fernie Furlong DO Work Phone: [facility] 02-25-2024 14:54-0400 Body temperature 98.29 [degF] Fernie Furlong DO Work Phone: [facility] 02-25-2024 14:54-0400 Body weight 121.47 kg Fernie Furlong DO Work Phone: [facility] 02-25-2024 14:54-0400 Diastolic blood pressure 70 mm[Hg] Fernie Furlong DO Work Phone: [facility] 02-25-2024 14:54-0400 Heart rate 60 /min Fernie Furlong DO Work Phone: [facility] 02-25-2024 14:54-0400 SaO2% (BldA) [Mass fraction] 95 % Fernie Furlong DO Work Phone: [facility] 02-25-2024 14:54-0400 Systolic blood pressure 140 mm[Hg] Fernie Furlong DO Work Phone: [facility] 02-13-2024 09:26-0400 Body height 165.1 cm Pfo 6 [facility] 02-13-2024 09:26-0400 Body mass index (BMI) [Ratio] 44.6 kg/m2 Pfo 6 [facility] 02-13-2024 09:26-0400 Body temperature 97.7 [degF] Pfo 6 [facility] 02-13-2024 09:26-0400 Body weight 121.56 kg Pfo 6 [facility] 02-13-2024 09:26-0400 Diastolic blood pressure 60 mm[Hg] Pfo 6 [facility] 02-13-2024 09:26-0400 Heart rate 60 /min Pfo 6 [facility] 02-13-2024 09:26-0400 Respiratory rate 18 /min Pfo 6 [facility] 02-13-2024 09:26-0400 SaO2% (BldA) [Mass fraction] 94 % Pfo 6 [facility] 02-13-2024 09:26-0400 Systolic blood pressure 162 mm[Hg] Pfo 6 [facility] 02-06-2024 09:30-0400 Body height 165.1 cm Pfo 6 [facility] 02-06-2024 09:30-0400 Body mass index (BMI) [Ratio] 44.6 kg/m2 Pfo 6 [facility] 02-06-2024 09:30-0400 Body temperature 97.9 [degF] Pfo 6 [facility] 02-06-2024 09:30-0400 Body weight 121.56 kg Pfo 6 [facility] 02-06-2024 09:30-0400 Diastolic blood pressure 75 mm[Hg] Pfo 6 [facility] 02-06-2024 09:30-0400 Heart rate 60 /min Pfo 6 [facility] 02-06-2024 09:30-0400 Respiratory rate 188 /min Pfo 6 [facility] 02-06-2024 09:30-0400 SaO2% (BldA) [Mass fraction] 98 % Pfo 6 [facility] 02-06-2024 09:30-0400 Systolic blood pressure 176 mm[Hg] Pfo 6 [facility] 01-30-2024 09:25-0400 Body height 165.1 cm Pfo 6 [facility] 01-30-2024 09:25-0400 Body mass index (BMI) [Ratio] 44.93 kg/m2 Pfo 6 [facility] 01-30-2024 09:25-0400 Body temperature 97.7 [degF] Pfo 6 [facility] 01-30-2024 09:25-0400 Body weight 122.47 kg Pfo 6 [facility] 01-30-2024 09:25-0400 Diastolic blood pressure 60 mm[Hg] Pfo 6 [facility] 01-30-2024 09:25-0400 Heart rate 56 /min Pfo 6 [facility] 01-30-2024 09:25-0400 Respiratory rate 18 /min Pfo 6 [facility] 01-30-2024 09:25-0400 SaO2% (BldA) [Mass fraction] 93 % Pfo 6 [facility] 01-30-2024 09:25-0400 Systolic blood pressure 168 mm[Hg] Pfo 6 [facility] 01-23-2024 09:33-0400 Body height 165.1 cm Pfo 6 [facility] 01-23-2024 09:33-0400 Body mass index (BMI) [Ratio] 45.93 kg/m2 Pfo 6 [facility] 01-23-2024 09:33-0400 Body temperature 97.39 [degF] Pfo 6 [facility] 01-23-2024 09:33-0400 Body weight 125.19 kg Pfo 6 [facility] 01-23-2024 09:33-0400 Diastolic blood pressure 73 mm[Hg] Pfo 6 [facility] 01-23-2024 09:33-0400 Heart rate 66 /min Pfo 6 [facility] 01-23-2024 09:33-0400 Respiratory rate 18 /min Pfo 6 [facility] 01-23-2024 09:33-0400 SaO2% (BldA) [Mass fraction] 98 % Pfo 6 [facility] 01-23-2024 09:33-0400 Systolic blood pressure 180 mm[Hg] Pfo 6 [facility] 01-16-2024 09:24-0500 Body height 165.1 cm Pfo 6 [facility] 01-16-2024 09:24-0500 Body mass index (BMI) [Ratio] 46.1 kg/m2 Pfo 6 [facility] 01-16-2024 09:24-0500 Body temperature 98.01 [degF] Pfo 6 [facility] 01-16-2024 09:24-0500 Body weight 125.65 kg Pfo 6 [facility] 01-16-2024 09:24-0500 Diastolic blood pressure 80 mm[Hg] Pfo 6 [facility] 01-16-2024 09:24-0500 Heart rate 71 /min Pfo 6 [facility] 01-16-2024 09:24-0500 Respiratory rate 18 /min Pfo 6 [facility] 01-16-2024 09:24-0500 SaO2% (BldA) [Mass fraction] 97 % Pfo 6 [facility] 01-16-2024 09:24-0500 Systolic blood pressure 180 mm[Hg] Pfo 6 [facility] 01-09-2024 09:36-0500 Body height 165.1 cm Pfo 3 [facility] 01-09-2024 09:36-0500 Body mass index (BMI) [Ratio] 46.1 kg/m2 Pfo 3 [facility] 01-09-2024 09:36-0500 Body temperature 97.9 [degF] Pfo 3 [facility] 01-09-2024 09:36-0500 Body weight 125.65 kg Pfo 3 [facility] 01-09-2024 09:36-0500 Diastolic blood pressure 75 mm[Hg] Pfo 3 [facility] 01-09-2024 09:36-0500 Heart rate 70 /min Pfo 3 [facility] 01-09-2024 09:36-0500 Respiratory rate 18 /min Pfo 3 [facility] 01-09-2024 09:36-0500 SaO2% (BldA) [Mass fraction] 97 % Pfo 3 [facility] 01-09-2024 09:36-0500 Systolic blood pressure 180 mm[Hg] Pfo 3 [facility] 01-02-2024 09:37-0500 Body temperature 98.01 [degF] Pfo 4 [facility] 01-02-2024 09:37-0500 Diastolic blood pressure 72 mm[Hg] Pfo 4 [facility] 01-02-2024 09:37-0500 Heart rate 62 /min Pfo 4 [facility] 01-02-2024 09:37-0500 Respiratory rate 18 /min Pfo 4 [facility] 01-02-2024 09:37-0500 SaO2% (BldA) [Mass fraction] 95 % Pfo 4 [facility] 01-02-2024 09:37-0500 Systolic blood pressure 184 mm[Hg] Pfo 4 [facility] 12-26-2023 09:37-0500 Body height 165.1 cm Pfo 4 [facility] 12-26-2023 09:37-0500 Body mass index (BMI) [Ratio] 46.1 kg/m2 Pfo 4 [facility] 12-26-2023 09:37-0500 Body temperature 97.7 [degF] Pfo 4 [facility] 12-26-2023 09:37-0500 Body weight 125.65 kg Pfo 4 [facility] 12-26-2023 09:37-0500 Diastolic blood pressure 64 mm[Hg] Pfo 4 [facility] 12-26-2023 09:37-0500 Heart rate 67 /min Pfo 4 [facility] 12-26-2023 09:37-0500 Respiratory rate 18 /min Pfo 4 [facility] 12-26-2023 09:37-0500 SaO2% (BldA) [Mass fraction] 96 % Pfo 4 [facility] 12-26-2023 09:37-0500 Systolic blood pressure 177 mm[Hg] Pfo 4 [facility] 12-19-2023 09:30-0500 Body height 165.1 cm Pfo 2 [facility] 12-19-2023 09:30-0500 Body mass index (BMI) [Ratio] 46.13 kg/m2 Pfo 2 [facility] 12-19-2023 09:30-0500 Body temperature 97.39 [degF] Pfo 2 [facility] 12-19-2023 09:30-0500 Body weight 125.74 kg Pfo 2 [facility] 12-19-2023 09:30-0500 Diastolic blood pressure 67 mm[Hg] Pfo 2 [facility] 12-19-2023 09:30-0500 Heart rate 67 /min Pfo 2 [facility] 12-19-2023 09:30-0500 Respiratory rate 18 /min Pfo 2 [facility] 12-19-2023 09:30-0500 SaO2% (BldA) [Mass fraction] 97 % Pfo 2 [facility] 12-19-2023 09:30-0500 Systolic blood pressure 196 mm[Hg] Pfo 2 [facility] 12-12-2023 09:25-0500 Body height 165.1 cm Pfo 2 [facility] 12-12-2023 09:25-0500 Body mass index (BMI) [Ratio] 45.43 kg/m2 Pfo 2 [facility] 12-12-2023 09:25-0500 Body temperature 97.5 [degF] Pfo 2 [facility] 12-12-2023 09:25-0500 Body weight 123.83 kg Pfo 2 [facility] 12-12-2023 09:25-0500 Diastolic blood pressure 71 mm[Hg] Pfo 2 [facility] 12-12-2023 09:25-0500 Heart rate 70 /min Pfo 2 [facility] 12-12-2023 09:25-0500 Respiratory rate 18 /min Pfo 2 [facility] 12-12-2023 09:25-0500 SaO2% (BldA) [Mass fraction] 98 % Pfo 2 [facility] 12-12-2023 09:25-0500 Systolic blood pressure 166 mm[Hg] Pfo 2 [facility] 12-05-2023 09:15-0500 Body height 165.1 cm Pfo 2 [facility] 12-05-2023 09:15-0500 Body mass index (BMI) [Ratio] 44.76 kg/m2 Pfo 2 [facility] 12-05-2023 09:15-0500 Body temperature 97.39 [degF] Pfo 2 [facility] 12-05-2023 09:15-0500 Body weight 122.02 kg Pfo 2 [facility] 12-05-2023 09:15-0500 Diastolic blood pressure 70 mm[Hg] Pfo 2 [facility] 12-05-2023 09:15-0500 Heart rate 71 /min Pfo 2 [facility] 12-05-2023 09:15-0500 Respiratory rate 18 /min Pfo 2 [facility] 12-05-2023 09:15-0500 SaO2% (BldA) [Mass fraction] 96 % Pfo 2 [facility] 12-05-2023 09:15-0500 Systolic blood pressure 157 mm[Hg] Pfo 2 [facility] 11-28-2023 09:17-0500 Body height 165.1 cm Pfo 1 [facility] 11-28-2023 09:17-0500 Body mass index (BMI) [Ratio] 44.93 kg/m2 Pfo 1 [facility] 11-28-2023 09:17-0500 Body temperature 97.2 [degF] Pfo 1 [facility] 11-28-2023 09:17-0500 Body weight 122.47 kg Pfo 1 [facility] 11-28-2023 09:17-0500 Diastolic blood pressure 56 mm[Hg] Pfo 1 [facility] 11-28-2023 09:17-0500 Heart rate 79 /min Pfo 1 [facility] 11-28-2023 09:17-0500 Respiratory rate 18 /min Pfo 1 [facility] 11-28-2023 09:17-0500 SaO2% (BldA) [Mass fraction] 99 % Pfo 1 [facility] 11-28-2023 09:17-0500 Systolic blood pressure 156 mm[Hg] Pfo 1 [facility] 11-26-2023 13:40-0500 Body height 165.1 cm [email or web address] Work Phone: [facility] 11-26-2023 13:40-0500 Body mass index (BMI) [Ratio] 44.45 kg/m2 [email or web address] Work Phone: [facility] 11-26-2023 13:40-0500 Body temperature 97.3 [degF] Fernie Furlong DO Work Phone: [facility] [employer] 11-26-2023 13:40-0500 Body weight 121.16 kg Fernie Furlong DO Work Phone: [facility] [employer] 11-26-2023 13:40-0500 Diastolic blood pressure 62 mm[Hg] Fernie Furlong DO Work Phone: [facility] [employer] 11-26-2023 13:40-0500 Heart rate 62 /min Fernie Tracylong DO Work Phone: [facility] [employer] 11-26-2023 13:40-0500 SaO2% (BldA) [Mass fraction] 96 % Fernie Tracylong DO Work Phone: [facility] [employer] 11-26-2023 13:40-0500 Systolic blood pressure 130 mm[Hg] Fernie Tracylong DO Work Phone: [facility] [employer] [facility] 11-21-2023 10:01-0500 Body height 165.1 cm Pfo 1 [facility] [employer] [facility] 11-21-2023 10:01-0500 Body mass index (BMI) [Ratio] 44.6 kg/m2 Pfo 1 [facility] [employer] [facility] 11-21-2023 10:01-0500 Body temperature 97.81 [degF] Pfo 1 [facility] [employer] [facility] 11-21-2023 10:01-0500 Body weight 121.56 kg Pfo 1 [facility] [employer] [facility] 11-21-2023 10:01-0500 Diastolic blood pressure 52 mm[Hg] Pfo 1 [facility] [employer] [facility] 11-21-2023 10:01-0500 Heart rate 62 /min Pfo 1 [facility] [employer] [facility] 11-21-2023 10:01-0500 Respiratory rate 18 /min Pfo 1 [facility] [employer] [facility] 11-21-2023 10:01-0500 SaO2% (BldA) [Mass fraction] 94 % Pfo 1 [facility] 11-21-2023 10:01-0500 Systolic blood pressure 122 mm[Hg] Pfo 1 [facility] 11-16-2023 09:00-0500 Body temperature 96.6 [degF] DO Fernie [employer]Qu[employer] Work Phone: [facility] 11-16-2023 09:00-0500 Diastolic blood pressure 74 mm[Hg] DO Fernie [employer] Work Phone: [facility] 11-16-2023 09:00-0500 Heart rate 71 /min DO Fernie [employer] Work Phone: [facility] 11-16-2023 09:00-0500 Respiratory rate 18 /min DO Thubrikar Aortic [employer] Work Phone: [facility] 11-16-2023 09:00-0500 SaO2% (BldA) [Mass fraction] 97 % DO Thubrikar Aortic [employer] Work Phone: [facility] 11-16-2023 09:00-0500 Systolic blood pressure 148 mm[Hg] DO Fernie [employer] Work Phone: [facility] 08-23-2023 12:20-0400 Body height 165.1 cm Gia Tammy Other [employer] Other 08-23-2023 12:20-0400 Body mass index (BMI) [Ratio] 44.09 kg/m2 Gia Tammy Other [employer] Other 08-23-2023 12:20-0400 Body temperature 96.6 [degF] Gia Tammy Other [employer] Other 08-23-2023 12:20-0400 Body weight 120.2 kg Gia Tammy Other [employer] Other 08-23-2023 12:20-0400 Diastolic blood pressure 86 mm[Hg] Gia Tammy Other [employer] Other 08-23-2023 12:20-0400 Respiratory rate 18 /min Gia Tammy Other [employer] Other 08-23-2023 12:20-0400 SaO2% (BldA) [Mass fraction] 96 % Gia Tammy Other [employer] Other 08-23-2023 12:20-0400 Systolic blood pressure 138 mm[Hg] Gia Tammy Other [employer] Other 01-25-2023 12:20-0400 Body height 165.1 cm Gia Tam[employer] Other [employer] Other 01-25-2023 12:20-0400 Body mass index (BMI) [Ratio] 45.76 kg/m2 [employer]ia Tam[employer] Other [employer] Other 01-25-2023 12:20-0400 Body temperature 96.7 [degF] Gia Tam[employer] Other [employer] Other 01-25-2023 12:20-0400 Body weight 124.74 kg Gia Tammy Other [employer] Other 01-25-2023 12:20-0400 Diastolic blood pressure 80 mm[Hg] Gia Tam[employer] Other [employer] Other 01-25-2023 12:20-0400 Respiratory rate 18 /min Gia Tam[employer] Other [employer] Other 01-25-2023 12:20-0400 SaO2% (BldA) [Mass fraction] 96 % [employer]ia [employer] Other [employer] Other 01-25-2023 12:20-0400 Systolic blood pressure 139 mm[Hg] Gia [employer] Other [employer] Other 07-20-2022 13:00-0400 Body height 165.1 cm Gia Tam[employer] Other [employer] Other 07-20-2022 13:00-0400 Body temperature 96 [degF] Gia Tam[employer] Other [employer] Other 07-20-2022 13:00-0400 Diastolic blood pressure 71 mm[Hg] Gia Tammy Other [employer] Other 07-20-2022 13:00-0400 Respiratory rate 18 /min Gia Tammy Other [employer] Other 07-20-2022 13:00-0400 SaO2% (BldA) [Mass fraction] 96 % Gia Tammy Other [employer] Other 07-20-2022 13:00-0400 Systolic blood pressure 134 mm[Hg] Gia Tammy Other [employer] Other 04-06-2022 12:00-0400 Body height 165.1 cm Gia Tammy Other [employer] Other 04-06-2022 12:00-0400 Body mass index (BMI) [Ratio] 46.32 kg/m2 [employer]ia Tam[employer] Other [employer] Other 04-06-2022 12:00-0400 Body temperature 98 [degF] Gia Tammy Other [employer] Other 04-06-2022 12:00-0400 Body weight 126.28 kg Gia Tammy Other [employer] Other 04-06-2022 12:00-0400 Diastolic blood pressure 70 mm[Hg] Gia Tammy Other [employer] Other 04-06-2022 12:00-0400 Respiratory rate 20 /min Gia Tammy Other [employer] Other 04-06-2022 12:00-0400 SaO2% (BldA) [Mass fraction] 93 % Gia Tammy Other [employer] Other 04-06-2022 12:00-0400 Systolic blood pressure 122 mm[Hg] Gia Tammy Other [employer] Other 12-27-2021 16:20-0500 Body height 165.1 cm Gia Tammy Other [employer] Other 12-27-2021 16:20-0500 Body mass index (BMI) [Ratio] 46.29 kg/m2 [employer]ia Tam[employer] Other [employer] Other 12-27-2021 16:20-0500 Body temperature 96.2 [degF] Gia Tammy Other [employer] Other 12-27-2021 16:20-0500 Body weight 126.19 kg Gia Tammy Other [employer] Other 12-27-2021 16:20-0500 Diastolic blood pressure 78 mm[Hg] Gia Tammy Other [employer] Other 12-27-2021 16:20-0500 Respiratory rate 20 /min Gia Tammy Other [employer] Other 12-27-2021 16:20-0500 SaO2% (BldA) [Mass fraction] 95 % Gia Tammy Other [employer] Other 12-27-2021 16:20-0500 Systolic blood pressure 161 mm[Hg] [employer] Other [employer] Other Encounters Encounter Date Encounter Type Care Provider Facility Start: 12-31-2024 End: 12-31-2024 Orders Only Fernie Clark DO Work Phone: [facility] - [facility] Comment on above: Lumbar stenosis with neurogenic claudication Start: 12-29-2024 End: 12-29-2024 Refill Livia Du CMA [facility] - [facility] Medicine Comment on above: Lumbar stenosis with neurogenic claudication Start: 12-26-2024 End: 12-27-2024 ambulatory Fernie Clark DO Work Phone: [facility] - Family Medicine Comment on above: Acute cystitis with hematuria (Primary Dx); Essential hypertension; Acute right-sided low back pain without sciatica; Nausea; Anxiety Start: 12-19-2024 End: 12-27-2024 Refill Fernie Clark DO Work Phone: [facility] - Family Medicine Comment on above: Lumbar stenosis with neurogenic claudication Constipation, unspec ified constipation type (Primary Dx); Essential hypertension; Dysuria; History of UTI; History of sepsis; Chronic low back pain without sciatica, unspecified back pain laterality Start: 12-18-2024 End: 12-18-2024 Telephone encounter Bonny Bowles [facility] Comment on above: EMG order Start: 12-10-2024 End: 12-10-2024 Orders Only Fernie Clark DO Work Phone: [facility] - [facility] Start: 12-02-2024 End: 12-02-2024 Orders Only Fernie Clark DO Work Phone: [facility] - [facility] Comment on above: Lumbar stenosis with neurogenic claudication (Primary Dx) Start: 12-01-2024 End: 12-01-2024 Telephone encounter Jennifer [facility] Comment on above: orders for patient t o be sent out to hospital for evaluation Start: 11-24-2024 End: 11-24-2024 Telephone encounter Fernie Clark DO Work Phone: [facility] Start: 11-20-2024 End: 11-20-2024 ambulatory Fernie Clark DO Work Phone: [facility] Work Phone: Start: 11-20-2024 End: 11-20-2024 Departed Referred Fernie Barkleyng DO Work Phone: [facility] Start: 11-18-2024 End: 11-18-2024 Orders Only [facility] Comment on above: Hypomagnesemia (Prim fara Dx) Start: 11-17-2024 End: 11-19-2024 Telephone encounter Fernie Clark DO Work Phone: [facility] Start: 11-17-2024 End: 11-17-2024 ambulatory FERNIE CLARK [facility] Start: 11-10-2024 End: 11-10-2024 ambulatory GIA MUNOZ [facility] Start: 11-04-2024 End: 11-04-2024 ambulatory Pfo Infusion Bed 1 Elida hu [facility] Medical Oncology Comment on above: Hypomagnesemia (Prim fara Dx) Start: 11-03-2024 End: 11-03-2024 Refill Fernie Clark DO Work Phone: [facility] - [facility] Start: 11-03-2024 End: 11-03-2024 Orders Only Fernie Jamarcus Molinaangel luis DO Work Phone: [facility] - [facility] Start: 11-03-2024 End: 11-03-2024 ambulatory Christian Curtis MD Facility:[facility] Start: 10-27-2024 End: 10-27-2024 [facility] Start: 10-20-2024 End: 10-20-2024 Documentation procedure Clara prince [facility] On[facility] Start: 10-20-2024 End: 10-20-2024 ambulatory [facility] Start: 10-13-2024 End: 10-13-2024 [facility] Start: 10-07-2024 End: 10-14-2024 Refill Fernie Clark DO Work Phone: [facility] [place] Start: 10-07-2024 End: 10-07-2024 ambulatory FERNIE Jamarcus [facility] Comment on above: Hypomagnesemia (Prim fara Dx) Start: 10-06-2024 End: 10-06-2024 ambulatory [facility] Start: 10-01-2024 End: 10-01-2024 ambulatory FERNIE G [facility] Comment on above: Hypomagnesemia (Prim fara Dx) Start: 09-29-2024 End: 09-29-2024 ambulatory [facility] Start: 09-27-2024 End: 09-27-2024 Orders Only Fernierajinder Molinalong DO Work Phone: [facility] - [facility] Start: 09-26-2024 End: 09-26-2024 Evaluation and management of inpatient [facility] Start: 09-22-2024 End: 09-22-2024 [facility] Start: 09-15-2024 End: 09-15-2024 [facility] Start: 09-11-2024 End: 09-11-2024 Refill Fernie Clark DO Work Phone: [facility] - [facility] Start: 09-10-2024 End: 09-10-2024 Telephone encounter Nina Mcgee [facility] Comment on above: EMG NEW PATIENT Start: 09-10-2024 End: 09-10-2024 ambulatory FERNIE [facility] [place] Comment on above: Hypomagnesemia (Prim fara Dx) Start: 09-08-2024 End: 09-08-2024 [facility] Start: 09-04-2024 End: 09-04-2024 Orders Only Fernie Clark DO [facility] Comment on above: Paresthesia of right lower extremity (Primary Dx); Ross's esophagus with dysplasia Start: 09-01-2024 End: 09-01-2024 Documentation procedure Americo Lira [facility] - Medical Oncology Start: 09-01-2024 End: 09-01-2024 [facility] Start: 08-27-2024 End: 08-27-2024 ambulatory FERNIE G [facility] Comment on above: Hypomagnesemia (Prim fara Dx) Start: 08-25-2024 End: 08-25-2024 [facility] Start: 08-22-2024 End: 08-25-2024 Refill Fernie Barkleyng DO Work Phone: [facility] Internal Medicine - Family Medicine Comment on above: 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 ([facility]) (Primary Dx); Morbid obesity ([facility]) Start: 08-20-2024 End: 08-20-2024 [facility]: Hypomagnesemia (Prim fara Dx) Start: 08-18-2024 End: 08-18-2024 [facility] Start: 08-13-2024 End: 08-13-2024 [facility] Comment on above: Hypomagnesemia (Prim fara Dx) Start: 08-11-2024 End: 08-11-2024 [facility] Start: 08-06-2024 End: 08-06-2024 [facility] Comment on above: Hypomagnesemia (Prim fara Dx) Start: 08-05-2024 End: 08-05-2024 Orders Only Fernie Clark DO Work Phone: [facility] Internal Medicine - Family Medicine Start: 08-04-2024 End: 08-04-2024 [facility] Start: 07-30-2024 End: 07-30-2024 [facility] Comment on above: Hypomagnesemia (Prim fara Dx) Start: 07-28-2024 End: 07-28-2024 [facility] Start: 07-28-2024 End: 07-28-2024 ambulatory Christian Curtis MD Facility:[facility] Start: 07-23-2024 End: 07-23-2024 [facility] Comment on above: Hypomagnesemia (Prim fara Dx) Start: 07-21-2024 End: 07-21-2024 [facility] Start: 07-17-2024 End: 07-17-2024 Refill Fernie Clark DO Work Phone: [facility] Internal Medicine - Family Medicine Start: 07-16-2024 End: 07-16-2024 [facility] Comment on above: Hypomagnesemia (Prim fara Dx) Start: 07-15-2024 End: 07-15-2024 [facility] Start: 07-09-2024 End: 07-09-2024 [facility] Comment on above: Hypomagnesemia (Prim fara Dx) Start: 07-07-2024 End: 07-07-2024 [facility] Start: 07-02-2024 End: 07-02-2024 [facility] Comment on above: Hypomagnesemia (Prim fara Dx) Start: 06-30-2024 End: 06-30-2024 [facility] Start: 06-27-2024 End: 06-27-2024 Refill Fernie Clark DO Work Phone: [facility] Internal Medicine - Family Medicine Start: 06-25-2024 End: 06-25-2024 [facility] Comment on above: Hypomagnesemia (Prim fara Dx) Start: 06-23-2024 End: 06-23-2024 [facility] Start: 06-18-2024 End: 06-18-2024 [facility] Comment on above: Hypomagnesemia (Prim fara Dx) Start: 06-16-2024 End: 06-16-2024 [facility] Start: 06-11-2024 End: 06-11-2024 [facility] Comment on above: Hypomagnesemia (Prim fara Dx) Start: 06-09-2024 End: 06-09-2024 [facility] Start: 06-04-2024 End: 06-04-2024 ambulatory [place] Start: 06-02-2024 End: 06-02-2024 [facility] Start: 05-30-2024 End: 05-30-2024 [facility] Start: 05-29-2024 End: 05-29-2024 Telephone encounter Fernie Clark DO Work Phone: [facility] Internal Medicine - Family Medicine Start: 05-28-2024 End: 05-28-[address] 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 Comment on above: Hypomagnesemia (Prim fara Dx) Start: 05-19-2024 End: 05-19-2024 ambulatory [facility] Start: 05-14-2024 End: 05-14-[address] [facility] Comment on above: Hypomagnesemia (Prim fara Dx) Start: 05-12-2024 End: 05-12-2024 ambulatory [facility] Start: 05-07-2024 End: 05-07-[address] [facility] Comment on above: Hypomagnesemia (Prim fara Dx) Start: 05-05-2024 End: 05-05-2024 [facility] Start: 05-01-2024 End: 05-01-2024 ambulatory [facility] Work Phone: Start: 05-01-2024 End: 05-01-2024 Patient encounter procedure [facility] [place] Work Phone: Start: 04-30-2024 End: 04-30-[address] [facility] Comment on above: Hypomagnesemia (Prim fara Dx) Start: 04-29-2024 End: 04-29-2024 Refill Fernierajinder Clark DO Work Phone: [facility] - Family Medicine Start: 04-29-2024 End: 04-29-2024 Refill Elba Bae [facility] Internal [facility] - Family Medicine Start: 04-28-2024 Non-patient / Non-visit [facility] Neph[facility] Work Phone: Start: 04-28-2024 End: 04-28-2024 [facility] Start: 04-23-2024 End: 04-23-[address] [facility] Comment on above: Hypomagnesemia (Prim fara Dx) Start: 04-21-2024 End: 04-21-2024 ambulatory [place] Start: 04-16-2024 End: 04-16-[address] [facility] Comment on above: Hypomagnesemia (Prim fara Dx) Start: 04-14-2024 End: 04-14-2024 ambulatory [facility] Start: 04-09-2024 End: 04-09-2024 Refill Fernie G Furlong DO Work Phone: [facility] - [facility] Start: 04-09-2024 End: 04-09-2024 ambulatory FERNIE G [facility] Comment on above: Hypomagnesemia (Prim fara Dx) Start: 04-08-2024 End: 04-08-2024 [facility] Start: 04-02-2024 End: 04-02-2024 [facility] Randallia Jamarcus [facility] Comment on above: Hypomagnesemia (Prim fara Dx) Start: 03-31-2024 End: 03-31-2024 Refill Fernie Clark DO Work Phone: [facility] - [facility] Start: 03-31-2024 End: 03-31-2024 [facility] Start: 03-26-2024 End: 03-26-2024 [facility] Comment on above: Hypomagnesemia (Prim fara Dx) Start: 03-24-2024 End: 03-24-2024 [facility] Start: 03-19-2024 End: 03-19-2024 [facility] Comment on above: Hypomagnesemia (Prim fara Dx) Start: 03-17-2024 End: 03-17-2024 Refill Fernie Clark DO Work Phone: [facility] - [facility] Start: 03-17-2024 End: 03-17-2024 [facility] Start: 03-12-2024 End: 03-12-2024 [facility] Comment on above: Hypomagnesemia (Prim fara Dx) Start: 03-10-2024 End: 03-10-2024 [facility] Start: 03-03-2024 End: 03-03-2024 [facility] Start: 02-25-2024 End: 02-25-2024 Office outpatient visit 15 minutes Fernie Clark DO Work Phone: [facility] - Family Medicine Comment on above: Urinary incontinence , unspecified type (Primary Dx); Abnormality of gait and mobility Start: 02-25-2024 End: 02-25-2024 [facility] Start: 02-25-2024 End: 02-25-2024 Documentation procedure Millie Ireland [facility] Start: 02-25-2024 End: 02-25-2024 [facility] Start: 02-20-2024 End: 02-20-2024 Documentation procedure Americo Lira [facility] Start: 02-19-2024 End: 02-19-2024 Documentation procedure Americo Lira [facility] Start: 02-18-2024 End: 02-18-2024 [facility] Start: 02-13-2024 End: 02-13-2024 [facility] Comment on above: Hypomagnesemia (Prim fara Dx) Start: 02-11-2024 End: 02-11-2024 [facility] Start: 02-06-2024 End: 02-06-2024 [facility] Comment on above: Hypomagnesemia (Prim fara Dx) Start: 02-04-2024 End: 02-04-2024 [facility] Start: 02-04-2024 End: 02-04-2024 ambulatory Christian Curtis MD Facility: [facility] Start: 01-30-2024 End: 01-30-2024 [facility] Comment on above: Hypomagnesemia (Prim fara Dx) Start: 01-28-2024 End: 01-28-2024 [facility] Start: 01-23-2024 End: 01-23-[address] [facility] Comment on above: Hypomagnesemia (Prim fara Dx) Start: 01-21-2024 End: 01-21-2024 [facility] Start: 01-21-2024 End: 01-21-2024 ambulatory Christian Curtis MD Facility:[facility] Start: 01-17-2024 Orders Only Fernie noguera DO Work Phone: [facility] - [facility] Comment on above: Hypertension in ginna e 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 ([facility]) (Primary Dx) Start: 01-16-2024 End: 01-16-2024 [facility] Comment on above: Hypomagnesemia (Prim fara Dx) Start: 01-14-2024 End: 01-14-2024 [facility] Start: 01-09-2024 End: 01-09-[address] [facility] Comment on above: Hypomagnesemia (Prim fara Dx) Start: 01-08-2024 End: 01-08-2024 Patient encounter procedure Fernie Clark DO Work Phone: [facility] Comment on above: Medicare annual well ness visit, subsequent (Primary Dx); Screening for depression Start: 01-08-2024 End: 01-08-2024 [facility] Start: 01-07-2024 End: 01-07-2024 [facility] Start: 01-02-2024 End: 01-11-2024 [facility] Comment on above: Hypomagnesemia (Prim fara Dx) Start: 12-31-2023 End: 12-31-2023 [facility] Start: 12-26-2023 End: 12-26-2023 ambulatory FERNIE G [facility] Comment on above: Hypomagnesemia (Prim fara Dx) Start: 12-24-2023 End: 12-24-2023 [facility] Start: 12-19-2023 End: 12-19-2023 [facility] [place] Jamarcus [facility] Comment on above: Hypomagnesemia (Prim fara Dx) Start: 12-17-2023 End: 12-17-2023 [facility] Start: 12-12-2023 End: 12-12-2023 ambulatory FERNIE Ricketts [facility] Comment on above: Hypomagnesemia (Prim fara Dx) Start: 12-11-2023 Refill Theresa Dhaval JEANNE [facility] Start: 12-10-2023 End: 12-10-2023 [facility] Start: 12-07-2023 Orders Only Fernie Barkley ng DO Work Phone: [facility] Internal [facility] - Family Medicine Start: 12-05-2023 Telephone encounter [facility] Start: 12-05-2023 End: 12-05-2023 [facility] Comment on above: Hypomagnesemia (Prim fara Dx) Start: 12-04-2023 Refill Fernie Barkley ng DO Work Phone: [facility] - Family Medicine Start: 12-03-2023 End: 12-03-2023 [facility] Start: 11-28-2023 End: 11-28-2023 [facility] Comment on above: Hypomagnesemia (Prim fara Dx) Start: 11-26-2023 End: 11-26-2023 [facility] Start: 11-26-2023 End: 11-26-2023 Office outpatient visit 25 minutes Fernie Clark DO Work Phone: [facility] Comment on above: Hypertension 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 [facility]) (Primary Dx); Mixed hyperlipidemia; Hypomagnesemia; 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; Morbid obesity [place] Chronic obstructive pulmonary disease, unspecified COPD type ([facility]) Start: 11-26-2023 End: 11-26-2023 ambulatory [facility] Start: 11-26-2023 End: 11-26-2023 ambulatory [place] Start: 11-21-2023 End: 11-21-2023 [facility] Comment on above: Hypomagnesemia (Prim fara Dx) Mixed hyperlipidemia (Primary Dx); Type 2 diabetes mellitus with stage 3b chronic kidney disease, with long-term current use of insulin ([facility]); Essential hypertension Start: 11-20-2023 Chart abstracting Felicity Merritt [facility] - [facility] Oncology Start: 11-19-2023 End: 11-19-2023 ambulatory [facility] Comment on above: Hypomagnesemia (Prim fara Dx) Start: 11-16-2023 End: 11-16-2023 ambulatory DO Fernie Furlong Work Phone: [facility] Work Phone: Start: 11-16-2023 End: 11-16-2023 Discharged Recurring DO Fernie Furlong Work Phone: [facility]-Infusion Therapy - O/P Work Phone: Start: 11-12-2023 Refill Fernierajinder Barkley ng DO Work Phone: [facility] - [facility] Start: 08-23-2023 End: 08-23-2023 ambulatory Gia Tammy Other [employer] Other Start: 10-12-2023 Office outpatient vi sit 25 minutes Gia Tammy [facility] [place] Start: 04-26-[address] FERNIE CLARK Fac ility:[facility] Start: 01-25-2023 End: 01-26-[address] LUISA STERN . [employer] Other Start: 01-25-2023 Office outpatient vi sit 25 minutes Gia Tammy [facility] [place] Start: 01-15-2023 End: 01-16-2023 ambulatory GIA TAMMY Facility:[facility] Start: 12-06-2022 End: 12-06-2022 ambulatory AB [facility] Start: 11-09-2022 End: 11-10-[address] FERNIE CLARK Facility:[facility] Start: 10-26-2022 End: 10-27-[address] LUISA STERN . Facility:[facility] Start: 08-02-2022 End: 08-03-[address] LUISA STERN . Facility:[facility] Start: 07-20-2022 End: 07-20-2022 ambulatory Gia Tammy Other [employer] Other Start: 07-20-2022 Office outpatient vi sit 25 minutes Gia Tammy [facility] Start: 07-12-2022 End: 07-13-2022 ambulatory GIA TAMMY Facility:[facility] Start: 05-03-2022 End: 05-03-2022 ambulatory Gia Tammy Other [employer] Other Start: 05-03-2022 Telephone encounter Gia Tammy [facility] Start: 04-25-2022 End: 04-26-[address] LUISA STERN . Facility:[facility] Start: 04-06-2022 End: 04-06-2022 ambulatory Gia Tammy Other [employer] Other Start: 04-06-2022 Office outpatient vi sit 25 minutes Gia Tammy [facility] [place] Start: 03-30-2022 End: 03-31-2022 ambulatory GIA TAMMY Facility:[facility] Start: 03-30-2022 End: 03-31-[address] LUISA STERN . Facility: Start: 12-27-2021 End: 12-27-2021 ambulatory Gia Tammy Other [employer] Other Start: 12-27-2021 Office outpatient vi sit 15 minutes Gia Tammy [facility] Start: 11-28-2021 End: 11-28-2021 ambulatory Gia Tammy Other [employer] Other Start: 11-28-2021 Telephone encounter Gia Tammy [facility] Start: 11-24-2021 End: 11-24-2021 ambulatory Gia Tammy Other [employer] Other Start: 11-24-2021 Telephone encounter Gia Tammy [facility] Start: 03-30-2021 End: 03-31-2021 ambulatory EHAB A KERRI Facility:[facility] Procedures Date Procedure Procedure Detail [...] (2 - Td or Tdap) [facility] Start: 11-04-2025 Fall Risk Screening Fall Risk Screening [facility] Start: 10-07-2025 Fall Risk Screening Fall Risk Screening [facility] Start: 09-26-2025 Tobacco Screening Tobacco Screening [facility] Start: 08-27-2025 Adult BMI Screening Adult BMI Screening [facility] Start: 08-27-2025 Fall Risk Screening Fall Risk Screening [facility] Start: 08-20-2025 Adult BMI Screening Adult BMI Screening [facility] Start: 08-13-2025 Adult BMI Screening Adult BMI Screening [facility] Start: 08-06-2025 Tobacco Screening Tobacco Screening [facility] Start: 07-30-2025 Adult BMI Screening Adult BMI Screening [facility] Start: 07-30-2025 Tobacco Screening Tobacco Screening [facility] Start: 07-23-2025 Adult BMI Screening Adult BMI Screening [facility] Start: 07-16-2025 Adult BMI Screening Adult BMI Screening [facility] Start: 07-16-2025 Tobacco Screening Tobacco Screening [facility] Start: 07-09-2025 Adult BMI Screening Adult BMI Screening [facility] Start: 07-02-2025 Adult BMI Screening Adult BMI Screening [facility] Start: 06-25-2025 Adult BMI Screening Adult BMI Screening [facility] Start: 06-25-2025 Tobacco Screening Tobacco Screening [facility] Start: 06-18-2025 Adult BMI Screening Adult BMI Screening [facility] Start: 06-18-2025 Tobacco Screening Tobacco Screening [facility] Start: 06-11-2025 Adult BMI Screening Adult BMI Screening [facility] Start: 06-11-2025 Tobacco Screening Tobacco Screening [facility] Start: 06-04-2025 Adult BMI Screening Adult BMI Screening [facility] Start: 06-04-2025 [facility] Start: 05-28-2025 Adult BMI Screening [facility] Start: 05-28-2025 Tobacco Screening [facility] Start: 05-27-2025 Adult BMI Screening Adult [facility] Start: 05-27-2025 Depression Screening [facility]ening [facility] Start: 05-27-2025 Tobacco Screening [facility] Start: 05-14-2025 Adult BMI Screening [facility] Start: 05-14-2025 Tobacco Screening [facility] Start: 05-07-2025 Adult BMI Screening Adult [facility] Start: 05-07-2025 Fall Risk Screening Fall [facility]ening [facility] Start: 05-07-2025 Tobacco Screening [facility] Start: 04-30-2025 Adult BMI Screening Adult [facility]ening [facility] Start: 04-30-2025 Tobacco Screening [facility] Start: 04-23-2025 Adult BMI Screening Adult BMI Screening [facility] Start: 04-23-2025 Tobacco Screening [facility] Start: 04-09-2025 Adult BMI Screening Adult [facility] Start: 04-09-2025 Tobacco Screening [facility]ening [facility] Start: 04-02-2025 Adult BMI Screening Adult [facility] Start: 04-02-2025 Tobacco Screening [facility] Start: 03-26-2025 Adult BMI Screening [facility] Start: 03-26-2025 Tobacco Screening [facility] Start: 03-19-2025 Adult BMI Screening Adult [facility] Start: 03-19-2025 Tobacco Screening Tobacco Screening [facility] Start: 03-12-2025 Adult BMI Screening Adult [facility]ening [facility] Start: 02-24-2025 Depression Screening [facility]ening [facility] Start: 02-24-2025 Fall Risk Screening Fall [facility] Start: 02-24-2025 Tobacco Screening [facility] Start: 02-12-2025 Adult BMI Screening Adult BMI Screening [facility] Start: 02-12-2025 Tobacco Screening Tobacco Screening [facility] Start: 02-05-2025 Adult BMI Screening Adult BMI Screening [facility] Start: 02-05-2025 Tobacco Screening Tobacco Screening [facility] Start: 01-29-2025 Adult BMI Screening Adult BMI Screening [facility] Start: 01-29-2025 Tobacco Screening Tobacco Screening [facility] Start: 01-22-2025 Adult BMI Screening Adult BMI Screening [facility] Start: 01-22-2025 Tobacco Screening Tobacco Screening [facility] Start: 01-15-2025 Adult BMI Screening Adult BMI Screening [facility] Start: 01-13-2025 End: 01-13-2025 Patient encounter procedure 01/13/2025 12:40 PM EST Of fice Visit [facility] [address] [place] [address] [facility] Start: 01-09-2025 Adult BMI Screening Adult BMI Screening [facility] Start: 01-09-2025 Tobacco Screening Tobacco Screening [facility] Start: 01-08-2025 Depression Screening Depression Screening [facility] Start: 01-08-2025 Fall Risk Screening Fall Risk Screening [facility] Start: 01-08-2025 Medicare Annual Wellness Visit Medicare Annual Wellness Visi t [facility] Start: 01-02-2025 Tobacco Screening Tobacco Screening [facility] Start: 12-26-2024 Adult BMI Screening Adult BMI Screening [facility] Start: 12-26-2024 Tobacco Screening Tobacco Screening [facility] Start: 12-19-2024 Adult BMI Screening Adult BMI Screening [facility] Start: 12-19-2024 Tobacco Screening Tobacco Screening [facility] Start: 12-15-2024 End: 12-15-2024 Patient encounter procedure 12/15/2024 12:30 PM EST Procedure visit [facility] [address] [place] [address] Ton Urbano MD [address] [place] [address] [facility] Start: 12-12-2024 Adult BMI Screening Adult BMI Screening [facility] Start: 12-10-2024 End: 12-10-2024 ambulatory 12/10/2024 9:30 AM EST Infusion Elida Ireland [facility] [address] [place] [phone] Elida Ireland [facility] Start: 12-05-2024 Adult BMI Screening Adult BMI Screening [facility] Start: 12-05-2024 Tobacco Screening Tobacco Screening [facility] Start: 12-04-2024 End: 12-04-2024 Patient encounter procedure 12/04/2024 1:30 PM EST Off ice Visit [facility] [address] [place] [address] Fernie Clark DO [address], [place] [address] [facility] Start: 12-03-2024 End: 12-03-2024 ambulatory 12/03/2024 9:30 AM EST Infusion Elida Ireland [facility] [address] [place] [phone] Elida Merritt Archer [facility] Start: 11-28-2024 Adult BMI Screening Adult BMI Screening [facility] Start: 11-28-2024 Tobacco Screening Tobacco Screening [facility] Start: 11-27-2024 End: 11-27-2024 Patient encounter procedure 11/27/2024 1:00 PM EST Off ice Visit [facility] [address] [place] [address] Fernie Clark DO [address] [place] [address] [facility] Start: 11-26-2024 Adult BMI Screening Adult BMI Screening [facility] Start: 11-26-2024 Depression Screening Depression Screening [facility] Start: 11-26-2024 Fall Risk Screening Fall Risk Screening [facility] Start: 11-26-2024 Tobacco Screening Tobacco Screening [facility] Start: 11-26-2024 End: 11-26-2024 ambulatory 11/26/2024 9:30 AM EST Infusion Elida Merritt Beka [facility] - Medical Oncology [address] [place] [phone] Elida L Beka [facility] Start: 11-21-2024 Adult BMI Screening Adult BMI Screening [facility] Start: 11-20-2024 Bacteria identified in Urine by Culture Urine Culture [facility] Start: 11-20-2024 Urine culture [facility] Start: 11-18-2024 End: 11-18-2024 ambulatory 11/18/2024 11:30 AM EST Infusion Elida L Beka [facility] [address] [place] [phone] Elida L Beka [facility] Start: 11-11-2024 End: 11-11-2024 ambulatory 11/11/2024 9:30 AM EST Infusion Elida L Beka [facility] - [facility] [address] [place] [phone] Elida L Beka [facility] - [facility] Start: 11-04-2024 End: 11-04-2024 ambulatory 11/04/2024 9:30 AM EST Infusion Elida L Beka [facility] [address] [place] [phone] Elida L Beka [facility] Start: 10-29-2024 End: 10-29-2024 ambulatory 10/29/2024 9:30 AM EST Infusion Elida L Beka [facility] [address] [place] [phone] Elida René Beka [facility] Start: 10-22-2024 End: 10-22-2024 ambulatory 10/22/2024 9:30 AM EST Infusion Elida Ireland [facility] [place] [address] Elida L Beka [facility] Start: 10-20-2024 Subsequent hospital visit by physician 10/20/2024 11:33 AM EST Hospital Encounter [facility] [address] [place] [id number] Hypomagnesemia [facility] Comment on above: Hypomagnesemia Start: 10-18-2024 Adult BMI Screening Adult BMI Screening [facility] Start: 10-18-2024 Depression Screening Depression Screening [facility] Start: 10-18-2024 Tobacco Screening Tobacco Screening [facility] Start: 10-15-2024 End: 10-15-2024 ambulatory 10/15/2024 9:30 AM EST Infusion Elida Merritt Archer [facility] [address] [place] [phone] Elida L Beka [facility] Start: 10-08-2024 End: 10-08-2024 ambulatory 10/08/2024 9:30 AM EST Infusion Elida Ireland [facility] [address] [place] [phone] Elida L Beka [facility] Start: 10-07-2024 End: 10-07-2024 ambulatory 10/07/2024 9:30 AM EST Infusion Elida L Archer [facility] [address] [place] [phone] Elida L Beka [facility] Start: 10-01-2024 End: 10-01-2024 ambulatory 10/01/2024 9:30 AM EST Infusion Elida L Beka [facility] [address] [place] [phone] Elida L Beka [facility] Start: 09-26-2024 End: 09-26-2024 Admission to same day surgery center 09/26/2024 12:30 PM EST - 09/26/2024 1:30 PM EST Surgery [facility] [address] [place] [address] Daniel Guerrero, DO [address] [place] [address] ESOPHAGOGASTRODUODENOSCOPY DIAGNOSTIC [85282 (CPT )] [facility] Comment on above: ESOPHAGOGASTRODUODENOSCOPY DIAGNOSTIC [4 3235 (CPT )] Start: 09-26-2024 End: 09-26-2024 Esophagogastroduodenoscopy transoral diagnostic ESOPHAGOGASTRODUODENOSCOPY DIAGNOSTIC ross's esophagus 09/26/2024 12:30 PM EST [facility] Start: 09-26-2024 Subsequent hospital visit by physician 09/26/2024 12:30 PM EST Hospital Encounter [facility] [address] [place] [address] [phone] Daniel Guerrero, DO [address] [place] [address] [facility] Start: 09-25-2024 End: 09-25-2024 ambulatory 09/25/2024 3:40 PM EST Suppo rt Visit [facility] - Pre Admit [address] [place] [address] [facility] Start: 09-24-2024 End: 09-24-2024 ambulatory 09/24/2024 9:30 AM EST Infusion Elida Ireland [facility] [address] [place] [phone] Elida Ireland [facility] Start: 09-17-2024 End: 09-17-2024 ambulatory 09/17/2024 9:30 AM EST Infusion Elida Ireland [facility] [address] [place] [address] Elida L Beka [facility] Start: 09-10-2024 End: 09-10-2024 ambulatory 09/10/2024 9:30 AM EDT Infusion Elida L Beka [facility] [address] [place] [address] Elida L Beka [facility] Start: 09-03-2024 End: 09-03-2024 ambulatory 09/03/2024 9:30 AM EDT Infusion Elida L Beka [facility] [address] [place] [phone] Elida L Beka [facility] Start: 08-27-2024 End: 08-27-2024 ambulatory 08/27/2024 9:30 AM EDT Infusion Elida L Beka [facility] [address] [place] [phone] Elida L Beka [facility] Start: 08-20-2024 End: 08-20-2024 ambulatory 08/20/2024 9:30 AM EDT Infusion Elida L Beka [facility] [address] [place] [phone] Elida L Beka [facility] Start: 08-13-2024 End: 08-13-2024 ambulatory 08/13/2024 9:30 AM EDT Infusion Elida L Beka [facility] [address] [place] [phone] Elida L Beka [facility] Start: 08-06-2024 End: 08-06-2024 ambulatory 08/06/2024 9:30 AM EDT Infusion Elida René Beka [facility] [address] [place] [phone] Elida René Beka [facility] Start: 07-30-2024 End: 07-30-2024 ambulatory 07/30/2024 9:30 AM EDT Infusion Elida Ireland [facility] [address] [place] [address] Elida L Beka [facility] Start: 07-24-2024 Fall Risk Screening Fall Risk Screening [facility] Start: 07-23-2024 End: 07-23-2024 ambulatory 07/23/2024 9:30 AM EDT Infusion Elida L Beka [facility] [address] [place] [phone] Elida L Beka [facility] Start: 07-16-2024 End: 07-16-2024 ambulatory 07/16/2024 9:30 AM EDT Infusion Elida L Beka [facility] [address] [place] [phone] Elida L Beka [facility] Start: 07-13-2024 COVID-19 Vaccine () COVID-19 Vaccine () [facility] Start: 07-13-2024 COVID-19 Vaccine ( season) COVID-19 Vaccine () [facility] Start: 07-09-2024 End: 07-09-2024 ambulatory 07/09/2024 9:30 AM EDT Infusion Elida L Beka [facility] [address] [place] [phone] Elida L Beka [facility] Start: 07-02-2024 End: 07-02-2024 ambulatory 07/02/2024 9:30 AM EDT Infusion Elida L Beka [facility] [address] [place] [phone] Elida L Beka [facility] Start: 06-25-2024 End: 06-25-2024 ambulatory 06/25/2024 9:30 AM EDT Infusion Elida L Beka [facility] [address] [place] [phone] Elida René Beka [facility] Start: 06-18-2024 End: 06-18-2024 ambulatory 06/18/2024 9:30 AM EDT Infusion Elida Ireland [facility] [address] [place] [phone] Elida Ireland [facility] Start: 06-11-2024 End: 06-11-2024 ambulatory 06/11/2024 9:30 AM EDT Infusion Elida Ireland [facility] [address] [place] [phone] Elida Ireland [facility] Start: 06-04-2024 End: 06-04-2024 ambulatory 06/04/2024 9:30 AM EDT Infusion Elida Ireland [facility] [address] [place] [phone] Elida Ireland [facility] Start: 05-28-2024 End: 05-28-2024 ambulatory 05/28/2024 9:30 AM EDT Infusion Elida Ireland [facility] [address] [place] [phone] Elida Ireland [facility] Start: 05-27-2024 End: 05-27-2024 Patient encounter procedure 05/27/2024 1:30 PM EDT Off ice Visit [facility] [address] [place] [address] Fernie Clark, DO [address], [facility] [place] [address] [facility] Start: 05-21-2024 End: 05-21-2024 ambulatory 05/21/2024 9:30 AM EDT Infusion Elida Ireland [facility] [address] [place] [phone] Elida Ireland [facility] Start: 05-14-2024 End: 05-14-2024 ambulatory 05/14/2024 9:30 AM EDT Infusion Elida L Beka [facility] [address] [place] [address] Elida L Beka [facility] Start: 05-07-2024 End: 05-07-2024 ambulatory 05/07/2024 9:30 AM EDT Infusion Elida René Beka [facility] [address] [place] [phone] Elida René Beka [facility] Start: 04-30-2024 End: 04-30-2024 ambulatory 04/30/2024 9:30 AM EDT Infusion Elida René Beka [facility] [address] [place] [phone] Elida René Beka [facility] Start: 04-23-2024 End: 04-23-2024 ambulatory 04/23/2024 9:30 AM EDT Infusion Elida L Beka [facility] [address] [place] [phone] Elida L Beka [facility] Start: 04-16-2024 End: 04-16-2024 ambulatory 04/16/2024 9:30 AM EDT Infusion Elida L Beka [facility] [address] [place] [phone] Elida René Beka [facility] Start: 04-09-2024 End: 04-09-2024 ambulatory 04/09/2024 9:30 AM EDT Infusion Elida René Beka [facility] [address] [place] [phone] Elida Ireland [facility] Start: 04-02-2024 End: 04-02-2024 ambulatory 04/02/2024 9:30 AM EDT Infusion Elida René Beka [facility] [address] [place] [phone] Elida Ireland [facility] Start: 03-26-2024 End: 03-26-2024 ambulatory 03/26/2024 9:30 AM EDT Infusion Elida Ireland [facility] [address] [place] [phone] Elida Ireland [facility] Start: 03-19-2024 End: 03-19-2024 ambulatory 03/19/2024 9:30 AM EDT Infusion Elida Ireland [facility] [address] [place] [phone] Elida Ireland [facility] Start: 03-05-2024 End: 03-05-2024 ambulatory 03/05/2024 9:30 AM EDT Infusion Elida Ireland [facility] [address] [place] [phone] Elida Ireland [facility] Start: 02-27-2024 End: 02-27-2024 ambulatory 02/27/2024 9:30 AM EDT Infusion Elida Ireland [facility] [address] [place] [phone] Elida Ireland [facility] Start: 02-25-2024 End: 02-25-2024 Patient encounter procedure 02/25/2024 2:45 PM EDT Off ice Visit [facility] [address] [place] [address] [facility] [address], [facility] [place] [address] [facility] Start: 02-20-2024 End: 02-20-2024 ambulatory 02/20/2024 9:30 AM EDT Infusion Elida Ireland [facility] [address] [place] [phone] Elida rIeland [facility] Start: 02-13-2024 End: 02-13-2024 ambulatory 02/13/2024 9:30 AM EDT Infusion Elida Ireland [facility] [address] [place] [address] Elida Ireland [facility] Start: 02-06-2024 End: 02-06-2024 ambulatory 02/06/2024 9:30 AM EDT Infusion Elida Ireland [facility] [address] [place] [address] Elida Ireland [facility] Start: 01-30-2024 End: 01-30-2024 ambulatory 01/30/2024 9:30 AM EDT Infusion Elida Ireland [facility] [address] [place] [address] Elida Ireland [facility] Start: 01-23-2024 End: 01-23-2024 ambulatory 01/23/2024 9:30 AM EDT Infusion Elida Ireland [facility] [address] [place] [phone] Elida Ireland [facility] Start: 01-16-2024 End: 01-16-2024 ambulatory 01/16/2024 9:30 AM EST Infusion Elida Ireland [facility] [address] [place] [phone] Elida Ireland [facility] Start: 01-09-2024 End: 01-09-2024 ambulatory 01/09/2024 9:30 AM EST Infusion Elida Ireland [facility] [address] [place] [phone] Elida Ireland [facility] Start: 01-08-2024 End: 01-08-2024 Patient encounter procedure 01/08/2024 1:00 PM EST Off ice Visit [facility] [address] [place] [address] [facility] Start: 01-02-2024 End: 01-02-2024 ambulatory 01/02/2024 9:30 AM EST Infusion Elida Merritt Beka [facility] [address] [place] [address] Elida L Beka [facility] Start: 12-26-2023 End: 12-26-2023 ambulatory 12/26/2023 9:30 AM EST Infusion Elida L Beka [facility] [address] [place] [phone] Elida L Beka [facility] Start: 12-19-2023 End: 12-19-2023 ambulatory 12/19/2023 9:30 AM EST Infusion Elida L Beka [facility] [address] [place] [phone] Elida L Beka [facility] Start: 12-12-2023 Administration of varicella zoster vaccine Zoster (Shingles) Vaccine (1 of 2) basno Comment on above: Postponed from 03/12/2015 (Patient Refus ed) Start: 12-12-2023 Medicare Annual Wellness Visit Medicare Annual Wellness Visi t [facility] Start: 12-12-2023 End: 12-12-2023 ambulatory 12/12/2023 9:30 AM EST Infusion Elida L Beka [facility] [address] [place] [phone] Elida L Beka [facility] Start: 12-05-2023 End: 12-05-2023 ambulatory 12/05/2023 9:30 AM EST Infusion Elida L Beka [facility] [address] [place] [phone] Elida L Beka [facility] Start: 11-28-2023 End: 11-28-2023 ambulatory 11/28/2023 9:30 AM EST Infusion Elida L Beka [facility] [address] [place] [phone] Elida L Beka [facility] Start: 11-26-2023 End: 11-26-2023 Patient encounter procedure 11/26/2023 1:30 PM EST Off ice Visit [facility] [address] [place] [address] Fernie Clark, [address] [place] [address] [facility] Start: 11-21-2023 End: 11-21-2023 ambulatory 11/21/2023 9:30 AM EST Infusion Elidarudolph Ireland [facility] [address] [place] [address] Elida Ireland [facility] Start: 07-13-2023 COVID-19 Vaccine ( season) COVID-19 Vaccine ( season) [facility] Start: 03-12-2015 Administration of varicella zoster vaccine Zoster (Shingles) [facility] 2) [facility] Start: 1960 Adult BMI Follow Up Plan Adult BMI Follow Up Plan [facility] End: 05-27-2025 Bacteria identified in Urine by Culture Urine culture (clean catch) Microbiology Routine Dysuria 1 Occurrences starting 05/27/2024 until 05/27/2025 [employer] Work Phone: Comment on above: 1 Occurrences starting 05/27/2024 until 05/27/2025 End: 11-21-2024 Comprehensive metabolic 2000 panel - Serum or Plasma Comprehensive metabolic panel Lab Routine Essential hypertension 1 Occurrences starting 11/21/2023 until 11/21/2024 [employer] Work Phone: Comment on above: 1 Occurrences starting 11/21/2023 until 11/21/2024 End: 09-04-2025 EMG EMG Neurology Routine Paresthesia of right lower extremity 1 Occurrences starting 09/04/2024 until 09/04/2025 [employer] Work Phone: Comment on above: 1 Occurrences starting 09/04/2024 until 09/04/2025 End: 09-04-2025 Esophagogastroduodenoscopy EGD GI Routine Ross's esophagus with dysplasia 1 Occurrences starting 09/04/2024 until 09/04/2025 [facility] [employer] Comment on above: 1 Occurrences starting 09/04/2024 until 09/04/2025 Esophagogastroduoden oscopy transoral diagnostic ESOPHAGOGASTRODUODENOSCOPY DIAGNOSTIC 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 [facility] End: 11-21-2024 Hemoglobin A1c/Hemoglobin.total in Blood Hemoglobin A1c Lab Routine Type 2 diabetes mellitus with stage 3b chronic kidney disease, with long-term current use of insulin [place] 1 Occurrences starting 11/21/2023 until 11/21/2024 [facility] Comment on above: 1 Occurrences starting 11/21/2023 until 11/21/2024 End: 11-21-2024 Lipid panel Lipid panel Lab Routine Mixe d hyperlipidemia 1 Occurrences starting 11/21/2023 until 11/21/2024 [facility] Comment on above: 1 Occurrences starting 11/21/2023 until 11/21/2024 End: 11-18-2025 Magnesium [Mass/volume] in Serum or Plasma Magnesium Lab Routine Hypomagnesemia weekly for 52 Occurrences starting 11/18/2024 until 11/18/2025 [employer] Work Phone: Comment on above: weekly for 52 Occurrences starting 11/18 until 11/18/2025 End: 11-19-2024 Magnesium [Mass/volume] in Serum or Plasma Magnesium Lab STAT Hypomagnesemia weekly for 52 Occurrences starting 11/19/2023 until 11/19/2024 [employer] Work Phone: Comment on above: weekly for 52 Occurrences starting 11/19 until 11/19/2024 End: 11-21-2024 Microalbumin - Albumin: Creatinine Urine Ratio Microalbumin - Albumin: Creatinine Urine Ratio Lab Routine Type 2 diabetes mellitus with stage 3b chronic kidney disease, with long-term current use of insulin ([facility] 1 Occurrences starting 11/21/2023 until 11/21/2024 [facility] Comment on above: 1 Occurrences starting 11/21/2023 until 11/21/2024 End: 01-16-2025 Potassium [Moles/volume] in Serum or Plasma Potassium Lab Routine 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 (CMS-HCC) 1 Occurrences starting 01/17/2024 until 01/16/2025 [facility] Work Phone: Comment on above: 1 Occurrences starting 01/17/2024 until 01/16/2025 Renal function 2000 panel - Serum or Plasma [facility] Immunizations Immunization Date Immunization Notes Care Provider Fa cili 08-31-2021 Influenza, High-dose , Quadrivalent Fernie Furlong DO Work Phone: [facility] 02-01-2021 COVID-19, mRNA, LNP- S, PF, 30mcg/0.3mL Dose Fernie Furlong DO Work Phone: [facility] 01-10-2021 COVID-19, mRNA, LNP- S, PF, 30mcg/0.3mL Dose Fernie Furlong DO Work Phone: [facility] 07-29-2020 influenza, high dose seasonal, preservative-free Fernie Furlong DO Work Phone: [facility] 09-03-2019 influenza, high dose seasonal, preservative-free Fernie Furlong DO Work Phone: [facility] 09-30-2018 tetanus toxoid, redu kiran diphtheria toxoid, and acellular pertussis vaccine, adsorbed Fernie Furlong DO Work Phone: [facility] 09-19-2018 influenza, high dose seasonal, preservative-free Fernie Furlong DO Work Phone: [facility] 09-03-2017 influenza virus vacc ine, unspecified formulation Fernie Furlong DO Work Phone: [facility] 07-27-2015 influenza, seasonal, injectable, preservative free Fernie Furlong DO Work Phone: [facility] 07-27-2015 seasonal influenza, intradermal, preservative free Fernie Furlong DO Work Phone: [facility] 01-15-2015 zoster vaccine, live Fernie Clark DO Work Phone: [facility] 01-15-2015 zoster vaccine, unspecified formulation Fernie Clark DO Work Phone: [facility] 07-16-2014 influenza, seasonal, injectable Fernie Clark DO Work Phone: [facility] 10-20-2013 pneumococcal conjuga te vaccine, 13 valent Fernie Barkleyng DO Work Phone: [facility] 08-30-2011 tetanus and diphther ia toxoids, not adsorbed, for adult use Fernie Clark DO Work Phone: [facility] 08-20-2008 pneumococcal polysaccharide vaccine, 23 valent Fernie Barkleyng DO Work Phone: [facility] Payers Date Payer Category Payer Unknown 11-12-2015 Managed Care Other (unspecified) [facility] [id number] 11-12-2015 Private Health Insurance [facility] AAR SUPPLEMENT [id number] 11/12/2015-Present [phone] [address] [place] [address] [id number] 09-12-2007 Medicare [id number] 11-12-1959 Medicare [id number] 11-12-1957 Unknown [id number] 1942 Unknown [id number] 2.16.840.1.329354.3.579.2 .647 1942 Unknown [id number] 2.16.840.1.888752.3.579.2 .593 1942 Unknown [id number] 2.16.840.1.475570.3.579.2 .593 1942 Unknown [id number] 2.16.840.1.601360.3.579.2 .593 1942 Unknown [id number] 2.16.840.1.428657.3.579.2 .593 1942 Unknown [id number] 2.16.840.1.586991.3.579.2 .593 1942 Unknown [id number] 2.16.840.1.233004.3.579.2 .593 1942 Unknown [id number] 2.16.840.1.513575.3.579.2 .593 1942 Unknown [id number] 2.16.840.1.300733.3.579.2 .593 1942 Unknown [id number] 2.16.840.1.353122.3.579.2 .593 1942 Unknown [id number] 2.16.840.1.183588.3.579.2 .593 1942 Unknown [id number] 2.16.840.1.484282.3.579.2 .593 1942 Unknown [id number] 2.16.840.1.327582.3.579.2 .1286 1942 Unknown [id number] 2.16.840.1.589366.3.579.2 .1286 1942 Unknown [id number] 2.16.840.1.647712.3.579.2 .128 1942 Unknown [id number] 2.16.840.1.281087.3.579.2 .1285 1942 Unknown [id number] 2.16.840.1.118061.3.579.2 .1285 1942 Unknown [id number] 2.16.840.1.117132.3.579.2 .1285 1942 Unknown [id number] 2.16.840.1.990844.3.579.2 .128 1942 Unknown [id number] 2.16.840.1.420291.3.579.2 .1942 Unknown [id number] 2.16.840.1.301915.3.579.2 .1942 Unknown [id number] 2.16.840.1.048745.3.579.2 .1942 Unknown [id number] 2.16.840.1.363337.3.579.2 .1942 Unknown [id number] 2.16.840.1.137951.3.579.2 .1285 1942 Unknown [id number] 2.16.840.1.210323.3.579.2 .1285 1942 Unknown [id number] 2.16.840.1.326652.3.579.2 .1285 1940 Unknown [id number] 2.16.840.1.614449.3.579.2 .1285 1942 Unknown [id number] 2.16.840.1.815703.3.579.2 .1285 1942 Unknown [id number] 2.16.840.1.915958.3.579.2 .1285 1942 Unknown [id number] 2.16.840.1.396958.3.579.2 .1285 1942 Unknown [id number] 2.16840.1.169631.3.579.2 .1285 1942 Unknown [id number] 2.840.1.457699.3.579.2 .1285 1942 Unknown [id number] 2.840.1.866583.3.579.2 .1285 1942 Unknown [id number] 2.840.1.944779.3.579.2 .1285 1942 Unknown [id number] 2.840.1.129215.3.579.2 .1285 1942 Unknown [id number] 2.840.1.775525.3.579.2 .1285 1942 Unknown [id number] 2.0.1.629787.3.579.2 .1285 1942 Unknown [id number] 2.840.1.885001.3.579.2 .1285 1942 Unknown [id number] 2.840.1.391148.3.579.2 .1285 1942 Unknown [id number] 2.840.1.646093.3.579.2 .1285 1942 Unknown [id number] 2.840.1.360984.3.579.2 .1285 1942 Unknown [id number] 2.840.1.648014.3.579.2 .1285 1942 Unknown [id number] 2.840.1.542293.3.579.2 .1285 1942 Unknown [id number] 2.840.1.342162.3.579.2 .1285 1942 Unknown [id number] 2.840.1.553479.3.579.2 .1285 1942 Unknown [id number] 2.16.840.1.023807.3.579.2 .1285 1942 Unknown [id number] 2.16.840.1.314751.3.579.2 .1285 1942 Unknown [id number] 2.16.840.1.802516.3.579.2 .1285 1942 Unknown [id number] 2.16.840.1.821901.3.579.2 .1285 1942 Unknown [id number] 2.16.840.1.761805.3.579.2 .1285 1942 Unknown [id number] 2.840.1.922909.3.579.2 .1285 1942 Unknown [id number] 2.840.1.381031.3.579.2 .1285 1942 Unknown [id number] 2.840.1.291063.3.579.2 .1285 1942 Unknown [id number] 2.840.1.416200.3.579.2 .1285 1942 Unknown [id number] 2.840.1.957390.3.579.2 .1285 1942 Unknown [id number] 2.840.1.059567.3.579.2 .1285 1942 Unknown [id number] 2.840.1.941209.3.579.2 .1285 1942 Unknown [id number] 2.16840.1.787475.3.579.2 .1285 1942 Unknown [id number] 2.16.840.1.516646.3.579.2 .1285 1942 Unknown [id number] 2.16840.1.164845.3.579.2 .1285 1942 Unknown [id number] 2.16.840.1.762262.3.579.2 .1285 1942 Unknown [id number] 2.16.840.1.113724.3.579.2 .1285 1942 Unknown [id number] 2.16.840.1.668097.3.579.2 .1285 1942 Unknown [id number] 2.16.840.1.673695.3.579.2 .1285 1942 Unknown [id number] 2.16.840.1.828540.3.579.2 .1285 1942 Unknown [id number] 2.16.840.1.113746.3.579.2 .1285 1942 Unknown [id number] 2.16.840.1.895649.3.579.2 .1285 1942 Unknown [id number] 2.840.1.895352.3.579.2 .1285 1942 Unknown [id number] 2.16.840.1.322990.3.579.2 .1285 1942 Unknown [id number] 2.840.1.814436.3.579.2 .1285 1942 Unknown [id number] 2.16.840.1.362992.3.579.2 .1285 1942 Unknown [id number] 2.16840.1.364982.3.579.2 .1285 1942 Unknown [id number] 2.16.840.1.554450.3.579.2 .1285 1942 Unknown [id number] 2.16.840.1.452923.3.579.2 .1285 1942 Unknown [id number] 2.16.840.1.636470.3.579.2 .1285 1942 Unknown [id number] 2.16.840.1.360123.3.579.2 .1285 1942 Unknown [id number] 2.16.840.1.407845.3.579.2 .1285 1942 Unknown [id number] 2.16.840.1.682328.3.579.2 .1285 1942 Unknown [id number] 2.16.840.1.814815.3.579.2 .1285 1942 Unknown [id number] 2.16.840.1.203116.3.579.2 .1285 1942 Unknown [id number] 2.16.840.1.001196.3.579.2 .1285 1942 Unknown [id number] 2.16.840.1.966151.3.579.2 .1285 1942 Unknown [id number] 2.16.840.1.295184.3.579.2 .1285 1942 Unknown [id number] 2.16.840.1.991511.3.579.2 .1285 1942 Unknown [id number] 2.16.840.1.793834.3.579.2 .1285 1942 Unknown [id number] 2.16.840.1.346865.3.579.2 .1285 1942 Unknown [id number] 2.16.840.1.528679.3.579.2 .1285 1942 Unknown [id number] 2.16.840.1.319159.3.579.2 .1285 1942 Unknown [id number] 2.16.840.1.780728.3.579.2 .1285 1942 Unknown [id number] 2.16.840.1.780802.3.579.2 .1285 1942 Unknown [id number] 2.16.840.1.246058.3.579.2 .1285 1942 Unknown [id number] 2.16.840.1.018963.3.579.2 .1285 1942 Unknown [id number] 2.16.840.1.323726.3.579.2 .1285 1942 Unknown [id number] 2.16.840.1.776970.3.579.2 .1285 1942 Unknown [id number] 2.16.840.1.488830.3.579.2 .1285 1942 Unknown [id number] 2.16.840.1.720896.3.579.2 .1285 1942 Unknown [id number] 2.16.840.1.556128.3.579.2 .1285 1942 Unknown [id number] 2.16.840.1.312739.3.579.2 .1285 1942 Unknown [id number] 2.16.840.1.600064.3.579.2 .1285 1942 Unknown [id number] 2.16.840.1.490698.3.579.2 .1285 1942 Unknown [id number] 2.16.840.1.779714.3.579.2 .1285 1942 Unknown [id number] 2.16.840.1.047478.3.579.2 .1285 1942 Unknown [id number] 2.16.840.1.574191.3.579.2 .1285 1942 Unknown [id number] 2.16.840.1.845443.3.579.2 .1285 1942 Unknown [id number] 2.16.840.1.723601.3.579.2 .1285 1942 Unknown [id number] 2.16.840.1.054877.3.579.2 .1285 1942 Unknown [id number] 2.16.840.1.856713.3.579.2 .1286 1942 Unknown [id number] 2.16.840.1.057569.3.579.2 .1286 1942 Unknown [id number] 2.16.840.1.297304.3.579.2 .1286 1942 Unknown [id number] 2.16.840.1.588847.3.579.2 .1286 1942 Unknown [id number] 2.16.840.1.065850.3.579.2 .1286 1942 Unknown [id number] 2.16.840.1.878835.3.579.2 .1286 1942 Unknown [id number] 2.16.840.1.205162.3.579.2 .128 1942 Unknown [id number] 2.16.840.1.668634.3.579.2 .128 1942 Unknown [id number] 2.16.840.1.879518.3.579.2 .128 1942 Unknown [id number] 2.16.840.1.439464.3.579.2 .1286 1942 Unknown [id number] 2.16.840.1.527188.3.579.2 .1286 Private Health Insurance [facility] [id number] Self-pay Self Pay [id number] Social History Date Type Detail Facility Unknown if ever smoked [employer] Other Start: 01-08-2024 End: 08-06-2024 Sex Assigned At [facility] Start: 1940 Sex Assigned At Female [facility] Start: 05-04-2017 End: 05-01-2024 Tobacco smoking status NHIS Never smoked tobacco (finding) [facility] Start: 05-04-2017 Tobacco use and exposure Smokeless tobacco non-user [facility] Start: 09-26-2024 End: 09-30-2024 Alcoholic beverage intake Ex-drinker (finding) [facility] Start: 01-08-2024 End: 08-06-2024 History of Social function [facility] Has the [facility], or [facility] threatened to shut off services in your home in past 12Mo No [facility] Are you now , , , , never or living with a partner? [facility] How often to you hav e a drink containing alcohol? Never [facility] How many standard drinks containing alcohol do you have on a typical day? Patient does not drink [facility] Do you feel stress - tense, restless, nervous, or anxious, or unable to sleep at night because your mind is troubled all the time - these days [OSQ] Not at all [facility] Start: 1940 Sex assigned at Not on file P [facility] Start: 06-17-2015 End: 11-21-2024 Sex Female (finding) [facility] Start: 10-18-2023 End: 09-10-2024 Alcohol intake Current drinker of alcohol (finding) [facility] Medical Equipment Procedure Code Equipment Code Equipment Origin al Text Equipment Identifier Dates 1 strip by other route in the morning and 1 strip before bedtime. [id number] Start: 08-30-2023 End: 11-18-2024 1 Lancet. by miscellaneous route in the morning and 1 Lancet. before bedtime. [id number] Start: 08-30-2023 USE 1 NEEDLE THR EE TIMES A DAY [id number] Start: 07-17-2024 1 strip by other route in the morning and 1 strip before bedtime. [id number] Start: 11-18-2024 USE 1 NEEDLE THR EE TIMES A DAY [id number] Start: 07-23-2023 End: 07-17-2024 Clinical Notes 12-27-2021 to 12-26-2024 Fernie Clark, - 12/26/2024 11:59 PM Shadia Clark DO - 12/19/2024 11:59 PM ESTTelephone Encounter - Bonny Bowles - 12/18/2024 9:09 AM Shanique Costa - 11/24/2024 8:41 AM EST Note Date & Type Note Facility 12-26-2024 History of Presen t illness Narrative Images from the original note were not included. Patient Name: Adore Wolff Date of : 1940 Date of Service: 12/26/2024 [place] [facility] [place] Visit[place]illed Visit Subjective Adore Wolff is a 84 y.o. female seen today at alf facility for therapy visit. Adore has several [...] Fernie Clark DO documented in this encounter [facility] 12-19-2024 History of Presen t illness Narrative Patient Name: Adore Wolff Date of : 1940 Date of Service: 12/19/2024 Facility: [facility] Type of Visit: Skilled Visit Subjective Adore Wolff is a 84 y.o. female seen today at alf facility for therapy visit. Adore is having [...] Fernie Clark DO documented in this encounter [facility] 12-18-2024 Miscellaneous Notes NEW EMG / NCV ORDER 1st attempt: [employer] contacted patient's spouse and informed him that we have received patient's EMG order. Spouse stated that he is not interested in scheduling at this time, as the patient is currently in a rehab facility but will call back if anything should change. [employer] reassured him that their referral is valid for up to one year should he change his mind - he stated understanding. documented in this encounter [facility] 12-18-2024 Telephone encounter Note NEW EMG / NCV ORDER 1st attempt: [employer] contacted patient's spouse and informed him that we have received patient's EMG order. Spouse stated that he is not interested in scheduling at this time, as the patient is currently in a rehab facility but will call back if anything should change. [employer] reassured him that their referral is valid for up to one year should he change his mind - he stated understanding. [facility] 12-02-2024 Miscellaneous Notes Fanny the nurse at the [facility] called and stated you were in yesterday evening and stated they had aske for a refill for tramodol and the lyrica be sent to [facility]. Also you had discontinued the [...] in a prescription to [facility] in [place]. If it is a different [facility] then I need to resend it somewhere else Spoke with Fanny and she will follow up with Pharmacy documented in this encounter [facility] 12-02-2024 Telephone encounter Note Fanny the nurse at the [facility] called and stated you were in yesterday evening and stated they had aske for a refill for tramodol and the lyrica be sent to [facility]. Also you had discontinued the trazadone and never put an order in. Do you still want this D/C? If so did you want something in replace of it? Also she is very lethargic today. [facility] 12-02-2024 Telephone encounter Note It could not find any order sheets so I gave a verbal order to stop the trazodone to the nurse. I also asked her if she needed any of her controlled substances and she said no. I did send in a prescription to [facility] in [place]. If it is a different [facility] then I need to resend it somewhere else [facility] 12-02-2024 Telephone encounter Note Spoke with Fanyn and she will follow up with Pharmacy [facility] 12-01-2024 Miscellaneous Notes Contract: [id number] [facility] called for orders to have patient sent to hospital for evaluation [id number] I called Dr Clark & transferred him to Joanie Pelayo [facility] documented in this encounter [facility] 12-01-2024 Telephone encounter Note Contract: [id number] Joanie Torrez [facility] called for orders to have patient sent to hospital for evaluation [facility] 12-01-2024 Telephone encounter Note [id number] I called Dr Clark & transferred him to Joanie Shan [facility] 11-24-2024 History of Presen t illness Narrative [...] advise. documented in this encounter [facility] 11-24-2024 Miscellaneous Notes Patient's spouse called CCM [...] be septic Notified documented in this encounter [facility] 11-24-2024 Telephone encounter Note Patient's spouse called [...] today by PCP if possible. Please advise. [facility] 11-24-2024 Telephone encounter Note She has altered mental status she should go to the emergency room. She could be septic [facility] 11-24-2024 Telephone encounter Note Notified [facility] 11-17-2024 History of Presen t illness Narrative Diabetic Supplies: After numerous attempts by and JARON we have been unable to get in touch with [facility] regarding patient diabetes supplies. Patient is currently out of test strips and would like order sent to new DME supplier. Could you please fax order to [facility] for [employer] meter and strips. Fax number: [phone]. [facility] Chronic Care Nurse [employer] [phone] documented in this encounter [facility] 11-17-2024 Miscellaneous Notes Diabetic Supplies: After numerous attempts by and JARON we have been unable to get in touch with [facility] regarding patient diabetes supplies. Patient is currently out of test strips and would like order sent to new DME supplier. Could you please fax order to [facility] for [employer] meter and strips. Fax number: [phone]. [facility] Chronic Care Nurse [employer] [phone] Please fax to [facility]. Prescriptions were printed documented in this encounter [facility] 11-17-2024 Telephone encounter Note Diabetic Supplies: After numerous attempts by SN and MA we have been unable to get in touch with [facility] regarding patient diabetes supplies. Patient is currently out of test strips and would like order sent to new DME supplier. Could you please fax order to [facility] for [employer] meter and strips. Fax number: [phone]. [facility] Chronic Care Nurse [employer] [phone] [facility] 11-17-2024 Telephone encounter Note Please fax to [facility]. Prescriptions were printed [facility] 11-04-2024 History of Presen t illness Narrative Patient is here for 2g IV magnesium as scheduled. Mg level 1.7. PIV initiated, blood return noted, flushes with ease. NS started at KVO. Magnesium infused over 2 hours. Line flushed. Pt tolerated well. PIV dc'd, pressure dressing applied. Pt dc'd in stable ambulatory condition with spouse. documented in this encounter [facility] 10-20-2024 History of Presen t illness Narrative Patient mag level is 1.9, will not need magnesium infusion this week. Patient made aware and will continue on with next week's lab draw. documented in this encounter [facility] 10-07-2024 Miscellaneous Notes Call patient and see if she requested this. It was stopped in the summertime documented in this encounter [facility] 10-07-2024 Telephone encounter Note Call patient and see if she requested this. It was stopped in the summertime [facility] 10-07-2024 History of Presen t illness Narrative Patient is here for 2g IV magnesium as scheduled. Mg level 1.7. PIV initiated, blood return noted, flushes with ease. NS started at KVO. Magnesium infused over 2 hours. Line flushed. Pt tolerated well. PIV dc'd, pressure dressing applied. Pt dc'd in stable ambulatory condition with spouse. documented in this encounter [facility] 10-01-2024 History of Presen t illness Narrative [...] calendar. documented in this encounter [facility] 09-10-2024 Miscellaneous Notes NEW EMG/NCV ORDER First attempt- Left Voicemail Dx: Paresthesia of right lower extremity [R20.2]/ Referred by: Fernie Clark DO Referred to: Please schedule patient in the next available appointment with provider. Patient returned call and patient was scheduled for next available EMG in [place]. Patient was placed on waitlist. Appointment: 12/15/2024 at 12:30pm with Dr. Urbano documented in this encounter [facility] 09-10-2024 Telephone encounter Note NEW EMG/NCV ORDER First attempt- Left Voicemail Dx: Paresthesia of right lower extremity [R20.2]/ Referred by: Fernie Clark DO Referred to: Please schedule patient in the next available appointment with provider. [facility] 09-10-2024 Telephone encounter Note Patient returned call and patient was scheduled for next available EMG in [place]. Patient was placed on waitlist. Appointment: 12/15/2024 at 12:30pm with Dr. Urbano [facility] 09-10-2024 History of Presen t illness Narrative Pt here for 2g IV magnesium. Mg level 1.7. PIV initiated to RFA. Brisk blood return verified, and flushes with ease. Magnesium infused over 2 hours without incident. Pt tolerated well. Flushed with saline and PIV dc'd. Pt dc'd in stable ambulatory condition. documented in this encounter [facility] 09-01-2024 History of Presen t illness Narrative Pt magnesium level 1.8. called to notify patient to see if shed like to notify dr medina office to see if she should still get mg infusion since she's WNL. Pt requests to take the week off and recheck mg level in one week. documented in this encounter [facility] 08-27-2024 History of Presen t illness Narrative Patient is here for 2g IV magnesium as scheduled. Mg level 1.6. PIV initiated, blood return noted, flushes with ease. NS started at KVO. Magnesium infused over 2 hours. Line flushed. Pt tolerated well. PIV dc'd, pressure dressing applied. Pt dc'd in stable ambulatory condition with spouse. documented in this encounter [facility] 08-22-2024 History of Presen t illness Narrative When was the last Refill? 05/27/24 Is this medication Historical? Winifred of preferred Pharmacy? [facility] When was the last OV with provider? 05/27/24 When is the next scheduled visit? 11/27/24 documented in this encounter [facility] 08-20-2024 History of Presen t illness Narrative Pt here for 2g IV magnesium. Mg level 1.6. PIV initiated to RFA. Brisk blood return noted, flushes with ease. Magnesium infused over 2 hours. Line flushed. Pt tolerated well. PIV dc'd. Pressure dressing applied. Dc'd in stable ambulatory condition. documented in this encounter [facility] 08-13-2024 History of Presen t illness Narrative Pt here for 2g IV magnesium per pt reqeust. Mg level 1.6. PIV initiated to LFA. Brisk blood return noted, flushes with ease. NS started at KVO. Magnesium infused over 2 hours. Pt tolerated well. PIV dc'd. Pressure dressing applied. Dc'd in stable ambulatory condition. documented in this encounter [facility] 08-06-2024 History of Presen t illness Narrative Pt here for 2g IV magnesium per pt reqeust. Mg level 1.5. PIV initiated to RFA. Brisk blood return noted, flushes with ease. NS started at KVO. Magnesium infused over 2 hours. Pt tolerated well. PIV dc'd. Pressure dressing applied. Dc'd in stable ambulatory condition. documented in this encounter [facility] 07-30-2024 History of Presen t illness Narrative Patient presents for Magnesium infusion. Mg 1.5 drawn 07/28/2024 Patient requests 2g of Magnesium today. PIV initiated, brisk blood return noted. Flushed with NS. Magnesium infusing as ordered over 2 hours. Patient tolerated infusion well. PIV discontinued, gauze secured with coban in place. Discharged in stable condition. documented in this encounter [facility] 07-23-2024 History of Presen t illness Narrative Patient presents for Magnesium infusion. Mg 1.6 drawn 07/21/2024 Patient will received 2g of Magnesium today per orders. PIV initiated, brisk blood return noted. Flushed with NS. Magnesium infusing as ordered over 2 hours. Patient tolerated infusion well. PIV discontinued, gauze secured with coban in place. Discharged in stable condition. documented in this encounter [facility] 07-16-2024 History of Presen t illness Narrative Pt here for 4gm IV magnesium for mg level 1.5. PIV initiated to RFA. Brisk blood return noted, flushes with ease. NS started at KVO. 4g IV magnesium infused over 4 hours without incident. Line flushed. PIV removed, pressure dressing applied. Dc'd in stable ambulatory condition. documented in this encounter [facility] 07-09-2024 History of Presen t illness Narrative Pt here for 2gm IV magnesium for mg level 1.6. PIV initiated to RFA. Brisk blood return noted, flushes with ease. NS started at KVO. 2g IV magnesium infused over 2 hours without incident. Line flushed. PIV removed, pressure dressing applied. Dc'd in stable ambulatory condition. documented in this encounter [facility] 07-02-2024 History of Presen t illness Narrative Pt here for 2gm IV magnesium for mg level 1.6. PIV initiated to RFA. Brisk blood return noted, flushes with ease. NS started at KVO. 2g IV magnesium infused over 2 hours without incident. Line flushed. PIV removed, pressure dressing applied. Dc'd in stable ambulatory condition. documented in this encounter [facility] 06-25-2024 History of Presen t illness Narrative Pt here for 2gm IV magnesium for mg level 1.7. PIV initiated to RFA. Brisk blood return noted, flushes with ease. NS started at KVO. 2g IV magnesium infused over 2 hours without incident. Line flushed. PIV removed, pressure dressing applied. Dc'd in stable ambulatory condition. documented in this encounter [facility] 06-18-2024 History of Presen t illness Narrative Patient is here for 2g IV magnesium as scheduled. Mg level 1.7. PIV initiated, blood return noted, flushes with ease. NS started at KVO. Magnesium infused over 2 hours. Line flushed. Pt tolerated well. PIV dc'd, pressure dressing applied. Pt dc'd in stable ambulatory condition with spouse. documented in this encounter [facility] 06-11-2024 History of Presen t illness Narrative [...] spouse. documented in this encounter [facility] 05-29-2024 Miscellaneous Notes ----- Message from Dr. [...] mg Patient notified documented in this encounter [facility] 05-29-2024 Telephone encounter Note ----- Message from [...] bring us a new sample for testing. [facility] 05-29-2024 Telephone encounter Note Adore will come in tomorrow to provide a repeat urine sample in office. She also was wondering about her low dose asprin. She had discontinued it about 1.5 months ago due to frequent nose bleeds. The nose bleeds are gone and wonders if she should start her asprin again. [facility] 05-29-2024 Telephone encounter Note Okay great! Yes she can restart aspirin 81 mg [facility] 05-29-2024 Telephone encounter Note Patient notified [facility] 05-28-2024 History of Presen t illness Narrative Patient presents for Magnesium infusion. Mg 1.6 drawn 05/26/2024 Patient will received 2g of Magnesium today per orders. PIV initiated, brisk blood return noted. Flushed with NS. Magnesium infusing as ordered over 2 hours. Patient tolerated infusion well. PIV discontinued, gauze secured with coban in place. Discharged in stable condition. documented in this encounter [facility] 05-27-2024 History of Presen t illness Narrative Subjective Patient ID: Adore Wolff is a 83 y.o. female. Adore presents today for diabetic recheck. She is taking her medications and not having any side effects. She has had it upper respiratory infection for a couple weeks it is better but she still has a nagging cough. She tried [id number] cough medicine but it made it worse. [...] Exam Vitals reviewed. Exam conducted with a floor plan adjuster present (Ifeanyi Johnson MS III). Constitutional: General: [...] stage 4 chronic kidney disease and hypertension [place] - POCT Hemoglobin A1c - POCT urinalysis dipstick only A1c wsa 7.1% Continue current regimen Dysuria - Urine culture (clean catch); Future Urine was abnormal so will check C&S. Acute rhinitis Will treat with loratadine 10 mg daily Morbid obesity ([facility] She is morbidly obese. She would benefit from wt loss. Incontinence of feces with fecal urgency Recommended to stop reglan and try fiber supplement to give more bulk to stool.. Other orders - loratadine (CLARITIN) 10 mg tablet; Take 1 tablet (10 mg total) by mouth daily as needed for allergies. documented in this encounter [facility] 05-21-2024 History of Presen t illness Narrative Pt here for 2g IV magnesium for mg level of 1.7. PIV initiated to RFA. Brisk blood return noted, flushes with ease. NS started at KVO. Magnesium infused over 2 hours. Pt tolerated well. Line flushed. PIV dc'd. Pressure dressing applied. Dc'd in stable ambulatory condition. documented in this encounter [facility] 05-14-2024 History of Presen t illness Narrative Pt here for 2g IV magnesium for mg level 1.6. PIV initiated to RFA. Brisk blood return noted, flushes with ease. NS started at KVO. Magnesium infused over 2 hours. Pt tolerated well. PIV dc'd. Pressure dressing applied. Dc'd in stable ambulatory condition with spouse. documented in this encounter [facility] 05-07-2024 History of Presen t illness Narrative Patient is here for 4g IV magnesium as scheduled. Mg level 1.4. PIV initiated, blood return noted, flushes with ease. NS started at KVO. Magnesium infused over 2 hours. Line flushed. Pt tolerated well. PIV dc'd, pressure dressing applied. Pt dc'd in stable ambulatory condition with spouse. documented in this encounter [facility] 04-30-2024 History of Presen t illness Narrative [...] condition. documented in this encounter [facility] 04-23-2024 History of Presen t illness Narrative Pt here for 4g IV magnesium for mg level of 1.4. PIV initiated to RFA. Brisk blood return noted, flushes with ease. NS started at KVO. Magnesium infused over 4 hours as ordered. Pt tolerated well. Line flushed. PIV dc'd, pressure dressing applied. Pt dc'd in stable condition. documented in this encounter [facility] 04-16-2024 History of Presen t illness Narrative Pt here for 2g IV magnesium as scheduled. Mg level 1.6. PIV initiated to RFA. Brisk blood return noted, flushes with ease. NS started at KVO. Magnesium infused over 2 hours. Pt tolerated well. PIV dc'd pressure dressing applied. Pt dc'd in stable ambulatory condition. V/u of future appointments. documented in this encounter [facility] 04-09-2024 History of Presen t illness Narrative [...] condition. documented in this encounter [facility] 04-02-2024 History of Presen t illness Narrative Pt here for IV magnesium as scheduled. Mg level 1.7. PIV initiated to RFA. Blood return verified. Flushes with ease. NS started at KVO. 2g magnesium infused over 2 hours. Pt tolerated well. PIV dc'd. Pressure dressing applied. Pt dc'd in stable ambulatory condition. documented in this encounter [facility] 03-26-2024 History of Presen t illness Narrative Pt here for IV magnesium as scheduled for mg level of 1.6. PIV initiated to RFA. Brisk blood return noted, flushes with ease. NS started at KVO. Magnesium infused over 2 hours. Pt tolerated well. Line flushed. PIV dc'd- pressure dressing applied. Pt dc'd in stable ambulatory condition. documented in this encounter [facility] 03-19-2024 History of Presen t illness Narrative Pt here for IV magnesium for mg level 1.6. PIV initiated to RFA after several attempts. Brisk blood return noted, flushes with ease. NS started at KVO. Magnesium infused over 2 hours. Pt tolerated well. PIV dc'd- pressure dressing applied. Pt dc'd in stable ambulatory condition. V/u of future appts. documented in this encounter [facility] 03-12-2024 History of Presen t illness Narrative Pt here for Mg infusion. Mg 1.6, 2GM Mg indicated per order. PIV initiated to RFA, brisk blood return noted, flushes without difficulty. 2gm Mg infused over 2 hours, pt tolerated well. PIV discontinued, pressure dressing applied. Calendar provided, pt discharged ambulatory in stable condition. documented in this encounter [facility] 04-15-2024 History of Presen t illness Narrative Subjective Patient ID: Adore Wolff is a 83 y.o. female. Adore presents for a [id number] visit to try to get pads for [...] Exam Vitals reviewed. Exam conducted with a floor plan adjuster present (). Constitutional: Appearance: She is morbidly [...] make a referral. documented in this encounter [facility] 02-25-2024 History of Presen t illness Narrative Patient and were updated on normal magnesium level of 1.9. She is still very bruised on her arms and wishes to continue to hold infusions at this time since level is normal to allow her arms/veins time to be less bruised. She will continue to have weekly lab checks completed. documented in this encounter [facility] 02-20-2024 History of Presen t illness Narrative Received call back from Dr. Munoz's office. Instructed to hold magnesium infusions at this time. Will update patient and have pt continue to have labs checked to monitor. documented in this encounter [facility] 02-19-2024 History of Presen t illness Narrative Pt magnesium level 1.9. called to notify patient and pt states her arms are still very bruised up from multiple IV attempts. Pt request to skip infusion this week to give her veins/arms a break since her mg level is wnl. Pt will recheck lab next week. documented in this encounter [facility] 02-13-2024 History of Presen t illness Narrative [...] condition. documented in this encounter [facility] 02-06-2024 History of Presen t illness Narrative Pt here for 2g IV magnesium as scheduled for mg level 1.8. Tolerating infusions well. PIV initiated to RFA. Brisk blood return noted, flushes with ease. NS started at KVO. Magnesium infused over 2 hours. Pt tolerated well. PIV dc'd, pressure dressing applied. Pt dc'd in stable ambulatory condition. documented in this encounter [facility] 01-30-2024 History of Presen t illness Narrative Patient is here for 2g IV magnesium as scheduled. Mg level 1.8. PIV initiated, blood return noted, flushes with ease. NS started at KVO. Magnesium infused over 2 hours. Line flushed. Pt tolerated well. PIV dc'd, pressure dressing applied. Pt dc'd in stable ambulatory condition with spouse. documented in this encounter [facility] 01-23-2024 History of Presen t illness Narrative Patient is here for 2g IV magnesium as scheduled. Mg level 1.7. PIV initiated on second attempt, blood return noted, flushes with ease. NS started at KVO. Magnesium infused over 2 hours. Line flushed. Pt tolerated well. PIV dc'd, pressure dressing applied. Pt dc'd in stable ambulatory condition with spouse. documented in this encounter [facility] 01-16-2024 History of Presen t illness Narrative [...] appointments. documented in this encounter [facility] 01-09-2024 History of Presen t illness Narrative Pt here for 2g IV magnesium for mg level of 1.7. Tolerating infusions well. PIV initiated to RFA. Brisk blood return, flushes with ease. NS started at KVO. Magnesium infused over 2 hours. Pt tolerated well. PIV flushed and dc'd. Pressure dressing applied. Dc'd in stable condition. documented in this encounter [facility] 01-08-2024 History of Presen t illness Narrative [...] Do you have a durable power of assistant prosecuting attorney?: Yes Cognitive Screening Do you have [...] year (around 01/08/2025). documented in this encounter [facility] 01-02-2024 History of Presen t illness Narrative Patient is here for 2g IV magnesium as scheduled. Mg level 1.7. PIV initiated on third attempt, blood return noted, flushes with ease. NS started at KVO. Magnesium infused over 2 hours. Line flushed. Pt tolerated well. PIV dc'd, pressure dressing applied. Pt dc'd in stable ambulatory condition with spouse. documented in this encounter [facility] 12-26-2023 History of Presen t illness Narrative Pt here for 2g IV magnesium infusion as scheduled. Mg level 1.6. Tolerating infusions well. PIV initiated to RFA. Brisk blood return noted, flushes with ease. NS started at KVO. Magnesium infused over 2 hours. Pt tolerated well. Line flushed. PIV dc'd. Pressure dressing applied. Pt v/u of future appointments. documented in this encounter [facility] 12-19-2023 History of Presen t illness Narrative Pt here for 4g IV magnesium infusion as scheduled. Mg level 1.5. Tolerating infusions well. PIV initiated to LFA. Brisk blood return noted, flushes with ease. NS started at KVO. Magnesium infused over 4 hours. Pt tolerated well. Line flushed. PIV dc'd. Pressure dressing applied. Pt v/u of future appointments. documented in this encounter [facility] 12-12-2023 History of Presen t illness Narrative Patient is here for 2g IV magnesium as scheduled. Mg level 1.7. PIV initiated blood return noted, flushes with ease. NS started at KVO. Magnesium infused over 2 hours. Line flushed. Pt tolerated well. PIV dc'd, pressure dressing applied. Pt dc'd in stable ambulatory condition with spouse. documented in this encounter [facility] 12-05-2023 History of Presen t illness Narrative Patient here for 2g IV magnesium as scheduled. Mg level 1.7. PIV initiated blood return noted, flushes with ease. NS started at KVO. Magnesium infused over 2 hours. Line flushed. Pt tolerated well. PIV dc'd, pressure dressing applied. Pt dc'd in stable ambulatory condition with spouse. documented in this encounter [facility] 12-04-2023 Miscellaneous Notes Patient called and these are both covered by insurance and she would like these sent in instead of what the alternative was documented in this encounter [facility] 12-04-2023 Telephone encounter Note Patient called and these are both covered by insurance and she would like these sent in instead of what the alternative was [facility] 11-28-2023 History of Presen t illness Narrative [...] [facility] History of Presen t illness Narrative Subjective Patient ID: Adore Wolff is a 83 y.o. female. Adore presents for recheck of multiple problems. She is currently getting a series of magnesium infusions due to critically low magnesium level. She was asymptomatic. She got her labs done today at [facility]. She has information regarding her formulary. Lantus [...] Objective Physical Exam Exam conducted with a floor plan adjuster present (). 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 Await CMP results. Await A1c and ACR results. Mixed hyperlipidemia Await lipid results Hypomagnesemia Managed by Nephrology. 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 Continue omeprazole. PPI can also lead to low magnesium. Morbid obesity [place] She is morbidly obese. She would benefit [...] the skin nightly. [facility] History of Presen t illness Narrative [...] Treatment calendar provided. [facility] Continue statin [facility] 11-19-2023 Note Hypertension is elev ated in office today was 192/86 and repeat b/p improved 158/80 Typically b/p is 122-150/60-80 at home and at other physician offices. Continue all meds ramipril, coreg [facility] 11-19-2023 Note Coronary artery dise ase is stable Continue GDMT- ASA, lipitor, coreg continue risk factor modifications- heart healthy diet, regular exercise as tolerated and continue all medications. [facility] 11-19-2023 Note Patient here for 1 y ear follow up CAD, hypertension, and venous insufficiency. Had labs a week or so ago for pin drafting machine tender and says she's in the process of [...] All other systems reviewed and are negative. [facility] 11-19-2023 Note [facility] CARDIOLOGY PROGR ESS [...] labs a week or so ago for pin drafting machine tender and says she's in the process of [...] 2.05, BUN 64, (more content not included)... [facility] 08-23-2023 Evaluation note Encounter Date Diagnosis [...] magnesium diet and provide information about it. [employer] Other 03-16-2023 NoteCONSULTATION CONSULTATION DATE: 01/25/2023 HISTORY: [...] and to talk with Dr. Munoz, their pin drafting machine tender, to confirm that this was acceptable, considering her stage 3 kidney disease. Other than that, we will see her in three months' time at the clinic, unless otherwise indicated. Patient and agree with this plan.[facility] 01-25-2023 Evaluation note* Encounter Date [...] magnesium diet and provide information about it. [employer] [facility] Chief Complaint: Patient being seen via telephone call for 6 mo follow up hypertension, CAD, and CKD. She denies chest pain and increased SOB with exertion. C/o increased LE edema but denies weight gain. Says her pin drafting machine tender Dr. Munoz advised her to call him [...] enzyme inhibitor/receptor micki. 4. [facility] with [facility] [...] creatinine and electrolytes; she follows with her pin drafting machine tender Leg swelling is likely related to venous [...] was initiated by the patient and conducted [id number] with use of audio-only real time telephone communication between patient and provider for a virtual visit. Verbal consent to provide and bill for this service was obtained on 12/06/2022. No signature was obtained due to the COVID-19 pandemic. Moe Parham MD, MPH, [facility], [facility], [facility] Interventional Cardiology Pager Email: [email or web address]12-15-2022 NoteCONSULTATION CONSULTATION DATE: 10/26/2022 HISTORY OF PRESENT ILLNESS: This is a very pleasant, 82-year-old female who presents with her for a three month follow up. Today, she reports 0/10 pain and is overall doing well. At her last appointment on 08/02/2022, we had switched her medications from Klondike to tramadol extended release 100 mg per day, which she feels is helping very much. It is lasting for her better than the Klondike. She is also on Lyrica 75 mg [...] indicated, and patient agrees with this plan.[id number] NoteCONSULTATION CONSULTATION DATE: 08/02/2022 HISTORY OF PRESENT ILLNESS: This is a pleasant, 81-year-old female, accompanied by her , returning to the clinic for a three month follow up for chronic lower back pain. She was last seen on 04/25/[address] Stern which, at that time, her Klondike was decreased to 5/325 daily p.r.n., which [...] increased to 100 mg extended release daily. Klondike will be discontinued. Education was given regarding use of the menthol heat rub with Voltaren gel and heat application to her back. Vitamin and nutrition importance was discussed. Patient will be seen back in the clinic in three months' time, unless otherwise indicated, and patient agrees to this.[id number] Evaluation note* Encounter Date Diagnosis Assessment Notes [...] any recent gout flare. She takes allopurinol. 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 She is managing the pain with Klondike 5/325 one table daily and tramadol 50 [...] the patient's pain medication which would be Klondike 5/325 one tablet daily and tramadol 50 [...] earlier should she need us. CC: Fernie Clark D.O. [facility] Signed and Approved by: DR LUISA STERN . 05/02/2022 08:52:00[facility]05-26-2022 Evaluation note* Encounter Date Diagnosis Assessment [...] any recent gout flare. She takes allopurinol. [employer] Other 05-19-2022 NoteCONSULTATION CONSULTATION DATE: 03/30/2022 This [...] She was given a 14-day prescription of Klondike 5/325 b.i.d. to help with the acuity of her post-procedure pain. Today she reports the Klondike is gone and she is back on [...] and rather we will maintain her on Klondike 5/325 b.i.d. which proved to be the [...] and agree and would like to proceed. [facility] Signed and Approved by: JONNY CAMPUZANO . 04/03/2022 15:07:00[facility]02-15-2022 Evaluation note* Encounter Date Diagnosis Assessment [...] any recent gout flare. She takes allopurinol. [employer] Other Evaluation noteNo InformationNort [employer] Other Evaluation noteNo assessment information available [facility] Work Phone: Evaluation note* Diagnosis Onset Date Resolution Status Anemia of renal disease acut e CKD (chronic kidney disease) stage 3, GFR 30-59 ml/min acute [id number] acute Hyperuricemia acute Hypomagnesemia acute Secondary hyperparathyroidism acute Type 2 diabetes mellitus wit h diabetic chronic kidney disease acute [facility] Work Phone: Evaluation note* Diagnosis Hypomagnesemia- Primary Disorders of magnesium metabolism [facility] Diagnosis Hypomagnesemia- Primary Disorders of magnesium metabolism [facility] Diagnosis 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 ([facility] Primary Morbid obesity ([facility]) Morbid obesity [facility] Diagnosis 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 ([facility] Primary Morbid obesity ([facility]) Morbid obesity [facility]* Diagnosis Lumbar stenosis with neurogenic claudication- Primary [facility] Diagnosis Lumbar stenosis with neurogenic claudication documented in this encounter [facility]* Diagnosis Hypomagnesemia- Primary Disorders of magnesium metabolism documented in this encounter [facility]* Diagnosis Hypomagnesemia- Primary Disorders of magnesium metabolism documented in this encounter [facility]* Diagnosis Hypomagnesemia- Primary Disorders of magnesium metabolism [facility]* Diagnosis Mixed hyperlipidemia- Primary Type 2 diabetes mellitus with stage 3b chronic kidney disease, with long-term current use of insulin ([facility]) Essential hypertension Unspecified essential hypertension [facility]* Diagnosis Hypomagnesemia- Primary Disorders of magnesium metabolism documented in this encounter [facility]* Diagnosis 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 ([facility] Primary Mixed hyperlipidemia Hypomagnesemia 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 Morbid obesity ([facility]) Morbid obesity Chronic obstructive pulmonary disease, unspecified COPD type ([facility]) [facility] Diagnosis Hypomagnesemia- Primary Disorders of magnesium metabolism documented [facility]* Diagnosis Hypomagnesemia- Primary Disorders of magnesium metabolism documented [facility]* Diagnosis Hypomagnesemia- Primary Disorders of magnesium metabolism documented in [facility] encounter [facility]* Diagnosis Hypomagnesemia- Primary Disorders of magnesium metabolism documented [facility]* Diagnosis Hypomagnesemia- Primary Disorders of magnesium metabolism documented [facility]* Diagnosis Acute cystitis with hematuria- Primary Essential hypertension Unspecified essential hypertension Acute right-sided low back pain without sciatica Nausea Nausea alone Anxiety Anxiety state, unspecified documented [facility]* Diagnosis Medicare annual wellness visit, subsequent- Primary Screening for depression documented in this encounter [facility]* Diagnosis Constipation, unspecified constipation type- Primary Essential hypertension Unspecified essential hypertension Dysuria History of UTI History of sepsis Personal history of other infectious and parasitic disease Chronic low back pain without sciatica, unspecified back pain laterality documented in this encounter [facility]* Diagnosis 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 ([facility])- Primary Dysuria Acute rhinitis Acute nasopharyngitis (common cold) Morbid obesity ([facility]) Morbid obesity Incontinence of feces with fecal urgency [facility] Diagnosis 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 ([facility])- Primary documented [facility] Diagnosis Hypomagnesemia- Primary Disorders of magnesium metabolism documented [facility] Diagnosis Hypomagnesemia- Primary Disorders of magnesium metabolism documented [facility]* Diagnosis Hypomagnesemia- Primary Disorders of magnesium metabolism documented [facility]* Diagnosis Urinary incontinence, unspecified type- Primary Abnormality of gait and mobility documented [facility] Diagnosis Hypomagnesemia- Primary Disorders of magnesium metabolism documented [facility]* Diagnosis Hypomagnesemia- Primary Disorders of magnesium metabolism [facility] Diagnosis 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 ([facility])- Primary Morbid obesity ([facility]) Morbid obesity [facility] Diagnosis Paresthesia of right lower extremity- Primary Ross's esophagus with dysplasia [facility] Diagnosis Hypomagnesemia- Primary Disorders of magnesium metabolism [facility] Diagnosis Lumbar stenosis with neurogenic claudication [facility] Diagnosis Lumbar stenosis with neurogenic claudication documented in this encounter [facility] - [facility]* Type Description [...] IN LOWER BACK Hospitalization History see above [employer] Other [employer]arations general Narrative - Reported* Type Description Date [...] HEART CATH 03/30/2021 Hospitalization History see above [employer] Other [employer] Decisions[employer]uld general Narrative - Reported* Type Description Date [...] IN LOWER BACK Hospitalization History see above [employer] Other InstructionsNot on filedocumented in this encounter [...] kidney disease) stage 3, GFR 30-59 ml/min [id number] Hyperuricemia Hypomagnesemia Secondary hyperparathyroidism Type 2 diabetes mellitus with diabetic chronic kidney disease Chief Complaint Admit Date Unknown November 20, 2024 4: 20am Additional Source Comments INFORMATION SOURCE (unrecogn ized section and content) DATE CREATED AUTHOR 04/06/2021 [facility] DATE CREATED AUTHOR AUTHOR'S ORGANIZ ATION 05/12/2022 [facility] DATE CREATED AUTHOR AUTHOR'S ORGANIZ ATION 03/15/2023 [facility] DATE CREATED AUTHOR AUTHOR'S ORGANIZ ATION 11/19/2023 [facility] DATE CREATED AUTHOR AUTHOR'S ORGANIZ ATION 05/31/2024 [facility] DATE CREATED AUTHOR AUTHOR'S ORGANIZ ATION 06/03/2024 [place] DATE CREATED AUTHOR AUTHOR'S ORGANIZ ATION 11/07/2024 [facility] DATE CREATED AUTHOR AUTHOR'S ORGANIZ ATION 11/23/2024 [facility] DATE CREATED AUTHOR AUTHOR'S ORGANIZ ATION 11/26/2024 [facility] REASON FOR VISIT (unrecogniz [...] Active Gia Munoz MD Attending Provider Active Drapery Sewer Hand Relationship Specialty Start Date End Date Fernie Clark DO [address], [place] [address] PCP - General Family Medicine 05/09/17 Flori Mon [facility] Nurse - [employer] 06/26/24 Drapery Sewer Hand Relationship Specialty Start Date End Date Fernie Clark [address] [place] [address] PCP - General Family Medicine 05/09/17 Flori Mon [facility] Nurse - [employer] 06/26/24 Drapery Sewer Hand Relationship Specialty Start Date End Date Fernie Clark [address] [place] [address] PCP - General Family Medicine 05/09/17 Flori Mon [facility] Nurse - [employer] 06/26/24 Drapery Sewer Hand Relationship Specialty Start Date End Date Fernie Clark [address] [place] [address] PCP - General Family Medicine 05/09/17 Flori Mon [facility] Nurse - [employer] 06/26/24 Drapery Sewer Hand Relationship Specialty Start Date End Date Fernie Clark [address] [place] [address] PCP - General Family Medicine 05/09/17 Flori Mon [facility] Nurse - [employer] 06/26/24 Drapery Sewer Hand Relationship Specialty Start Date End Date Fernie Clark [address], [place] [address] PCP - General Family Medicine 05/09/17 Clari Alasandro [facility] Nurse - [employer] 11/17/24 Drapery Sewer Hand Relationship Specialty Start Date End Date Fernie Clark [address], [place] [address] PCP - General Family Medicine 05/09/17 Clari Igor [facility] Nurse - [employer] 11/17/24 Drapery Sewer Hand Relationship Specialty Start Date End Date Fernie Clark [address], [place] [address] PCP - General Family Medicine 05/09/17 Clari Alasandro [facility] Nurse - [employer] 11/17/24 Drapery Sewer Hand Relationship Specialty Start Date End Date SubhapoornimaFernie [address], [place] [address] PCP - General Family Medicine 05/09/17 Clari Alasandro [facility] Nurse - [employer] 11/17/24 Drapery Sewer Hand Relationship Specialty Start Date End Date Tracyangel luisFernie [address], [place] [address] PCP - General Family Medicine 05/09/17 Clari Costa [facility] Nurse Suresh Delgado 11/17/24 Drapery Sewer Hand Relationship Specialty Start Date End Date RoxannFernie [address] [place] [address] PCP - General Family Medicine 05/09/17 Drapery Sewer Hand Relationship Specialty Start Date End Date Fernie Clark Jamarcus [address] [place] [address] PCP - General Family Medicine 05/09/17 Drapery Sewer Hand Relationship Specialty Start Date End Date Fernie Clark DO [address], [place] [address] PCP - General Family Medicine 05/09/17 Drapery Sewer Hand Relationship Specialty Start Date End Date Fernie Clark JamarcusDO [address] [place] [address] PCP - General Family Medicine 05/09/17 Drapery Sewer Hand Relationship Specialty Start Date End Date Fernie Clark JamarcusDO [address] [place] [address] PCP - General Family Medicine 05/09/17 Drapery Sewer Hand Relationship Specialty Start Date End Date Fernie Clark DO [address], [place] [address] PCP - General Family Medicine 05/09/17 Drapery Sewer Hand Relationship Specialty Start Date End Date Fernie Clark DO [address], [place] [address] PCP - General Family Medicine 05/09/17 Drapery Sewer Hand Relationship Specialty Start Date End Date Fernie Clark DO [address], [place] [address] PCP - General Family Medicine 05/09/17 Drapery Sewer Hand Relationship Specialty Start Date End Date RoxannFernie DO [address] [place] [address] PCP - General Family Medicine 05/09/17 Drapery Sewer Hand Relationship Specialty Start Date End Date TracymonicaFernie noguera DO [address], [place] [address] PCP - General Family Medicine 05/09/17 Drapery Sewer Hand Relationship Specialty Start Date End Date TracymonicaFernie noguera DO [address], [place] [address] PCP - General Family Medicine 05/09/17 Drapery Sewer Hand Relationship Specialty Start Date End Date TracymonicaFernie noguera DO [address] [place] [address] PCP - General Family Medicine 05/09/17 Jeni Coronel [facility] Nurse [facility] 04/23/24 Drapery Sewer Hand Relationship Specialty Start Date End Date SubhaFernie noguera DO [address] [place] [address] PCP - General Family Medicine 05/09/17 Drapery Sewer Hand Relationship Specialty Start Date End Date Fernie Clark DO [address], [place] [address] PCP - General Family Medicine 05/09/17 Drapery Sewer Hand Relationship Specialty Start Date End Date Fernie Clark DO [address], [place] [address] PCP - General Family Medicine 05/09/17 Jeni Coronel [facility] Nurse - [employer] 04/23/24 Drapery Sewer Hand Relationship Specialty Start Date End Date Fernie Clark DO [address], [place] [address] PCP - General Family Medicine 05/09/17 Jeni Coronel [facility] Nurse - [employer] 04/23/24 Drapery Sewer Hand Relationship Specialty Start Date End Date Fernie Clark DO [address], [place] [address] PCP - General Family Medicine 05/09/17 Jeni Coronel [facility] Nurse - [employer] 04/23/24 Drapery Sewer Hand Relationship Specialty Start Date End Date Fernie Clark DO [address], [place] [address] PCP - General Family Medicine 05/09/17 Drapery Sewer Hand Relationship Specialty Start Date End Date Fernie Clark DO [address], [place] [address] PCP - General Family Medicine 05/09/17 Clari Alandro CCM Nurse - [employer] 11/17/24 Drapery Sewer Hand Relationship Specialty Start Date End Date Fernie Clark [address], [place] [address] PCP - General Family Medicine 05/09/17 Clarikumar Collierndro CCM Nurse - [employer] 11/17/24 Drapery Sewer Hand Relationship Specialty Start Date End Date RoxannFernie [address], [place] [address] PCP - General Family Medicine 05/09/17 Jeni Coronel [facility] Nurse - [employer] 04/23/24 Drapery Sewer Hand Relationship Specialty Start Date End Date Tracyangel luis Fernie G, [address], [place] [address] PCP - General Family Medicine 05/09/17 Jeni Coronel [facility] Nurse - [employer] 04/23/24 Drapery Sewer Hand Relationship Specialty Start Date End Date Roxann Fernie G, [address], [place] [address] PCP - General Family Medicine 05/09/17 Jeni Coronel [facility] Nurse - [employer] 04/23/24 Drapery Sewer Hand Relationship Specialty Start Date End Date RoxannFernie [address], [place] [address] PCP - General Family Medicine 05/09/17 Jeni Coronel [facility] Nurse - [employer] 04/23/24 Drapery Sewer Hand Relationship Specialty Start Date End Date Fernie Clark DO [address] [place] [address] PCP - General Family Medicine 05/09/17 Jeni Coronel [facility] Nurse - [employer] 04/23/24 Drapery Sewer Hand Relationship Specialty Start Date End Date Fernie Clark DO [address] [place] [address] PCP - General Family Medicine 05/09/17 Drapery Sewer Hand Relationship Specialty Start Date End Date Fernie Clark DO [address] [place] [address] PCP - General Family Medicine 05/09/17 Jeni Coronel [facility] Nurse - [employer] 04/23/24 Drapery Sewer Hand Relationship Specialty Start Date End Date Fernie Clark DO [address], [place] [address] PCP - General Family Medicine 05/09/17 Drapery Sewer Hand Relationship Specialty Start Date End Date Fernie Clark DO [address] [place] [address] PCP - General Family Medicine 05/09/17 Flori Mon [facility] Nurse - [employer] 06/26/24 Drapery Sewer Hand Relationship Specialty Start Date End Date Fernie Clark DO [address] [place] [address] PCP - General Family Medicine 05/09/17 Flori Mon CCM Nurse - [employer] 06/26/24 Drapery Sewer Hand Relationship Specialty Start Date End Date Fernie Clark Jamarcus [address], [place] [address] PCP - General Family Medicine 05/09/17 Flori Mon CCM Nurse - [employer] 06/26/24 Drapery Sewer Hand Relationship Specialty Start Date End Date Fernie Clark DO [address], [place] [address] PCP - General Family Medicine 05/09/17 Flori Mon [facility] Nurse - [employer] 06/26/24 Drapery Sewer Hand Relationship Specialty Start Date End Date Fernie Clark DO [address], [place] [address] PCP - General Family Medicine 05/09/17 Flori Mon [facility] Nurse - [employer] 06/26/24 Drapery Sewer Hand Relationship Specialty Start Date End Date Fernie Clark DO [address], [place] [address] PCP - General Family Medicine 05/09/17 Flori Mon CCM Nurse - [employer] 06/26/24 Drapery Sewer Hand Relationship Specialty Start Date End Date Fernie Clark DO [address], [place] [address] PCP - General Family Medicine 05/09/17 Flori Mon [facility] Nurse - [employer] 06/26/24 Drapery Sewer Hand Relationship Specialty Start Date End Date Fernie Clark DO [address], [place] [address] PCP - General Family Medicine 05/09/17 Flori Mon [facility] Nurse - [employer] 06/26/24 Drapery Sewer Hand Relationship Specialty Start Date End Date Fernie Clark DO [address], [place] [address] PCP - General Family Medicine 05/09/17 Flori Mon [facility] Nurse - [employer] 06/26/24 Drapery Sewer Hand Relationship Specialty Start Date End Date Fernie Clark DO [address], [place] [address] PCP - General Family Medicine 05/09/17 Flori Mon [facility] Nurse - [employer] 06/26/24 Goals (unrecognized section [...] BE BASED ON THE PRIMARY CLINICAL RECORDS. [facility] [employer] [facility]. provides no warranty or guarantee of the accuracy or completeness of information in this document.
--- NOTE | 2025-01-02 13:21 | PM.HP ---
HPI H&P: HPI History of Present Illness Chief complaint: CHEST PAIN Narrative: HPI and Hospital Course: 84-year-old female who is presenting to the ER by EMS from the [facility] with chief complaint of midsternal chest pain that goes across the right and left side of her chest, goes into her left scapula, left shoulder, down her left arm. Patient is also having left wrist pain. Patient denies any injury. Patient has no known hx of CAD. Patient currently in rehab at the [facility] after hospital admission at [facility] for UTI for 4 weeks now. Her Chest pain was clearly pleuritic and is now gone. She is still complaining of left wrist and arm pain. Denies nausea, vomiting, shortness of breath, palpitations. Workup in ER revealed severe arthritic changes of wrist joint. No acute finding on CT head. No acute finding on EKG and negative troponins. At this time, there is no need for continued inpatient stay. She can be discharged to [place] and continue her rehab. Opioid HPI Opioid Management Most Recent Pain and Opioid Data: Last Pain Scale 4 01/02/25 04:58 01/02/25 Last Pain Intensity 4 11/27/24 11:35 11/27/24 Last ORT Total Score 0 01/02/25 09:28 01/02/25 Last ORT Risk Category Low Risk 01/02/25 09:28 01/02/25 Review of Systems ROS Status of ROS 10 or more systems reviewed and unremarkable except as noted in history and below [facility] Medical History Generalized weakness ?R53.1 - Weakness (ICD-10) Altered mental status ?R41.82 - Altered mental status, unspecified (ICD-10) Acute kidney failure ?N17.9 - Acute kidney failure, unspecified (ICD-10) HLD (hyperlipidemia) ?E78.5 - Hyperlipidemia, unspecified (ICD-10) CKD stage 3b, GFR 30-44 ml/min ?N18.32 - Chronic kidney disease, stage 3b (ICD-10) Constipation due to opioid therapy ?K59.03 - Drug induced constipation (ICD-10) ?T40.2X5A - Adverse effect of other opioids, initial encounter (ICD-10) Chronic use of opiate drug for therapeutic purpose ?Z79.891 - intermediate manager (current) use of opiate analgesic (ICD-10) Lumbar stenosis with neurogenic claudication ?M48.062 - Spinal stenosis, lumbar region with neurogenic claudication (ICD-10) Diabetes ?E11.9 - Type 2 diabetes mellitus without complications (ICD-10) COPD (chronic obstructive pulmonary disease) ?J44.9 - Chronic obstructive pulmonary disease, unspecified (ICD-10) HTN (hypertension) ?I10 - Essential (primary) hypertension (ICD-10) Chronic prescription opiate use ?Z79.891 - retirement (current) use of opiate analgesic (ICD-10) Lumbar radiculopathy, chronic ?M54.16 - Radiculopathy, lumbar region (ICD-10) Complication of electrolyte disorder ?E87.8 - Other disorders of electrolyte and fluid balance, not elsewhere classified (ICD-10) Concussion ?S06.0XAA - Concussion with loss of consciousness status unknown, initial encounter (ICD-10) Bilateral knee pain ?M25.561 - Pain in right knee (ICD-10) ?M25.562 - Pain in left knee (ICD-10) Muscle spasm ?M62.838 - Other muscle spasm (ICD-10) Lumbar spondylosis ?M47.816 - Spondylosis without myelopathy or radiculopathy, lumbar region (ICD-10) Knee osteoarthritis ?M17.9 - Osteoarthritis of knee, unspecified (ICD-10) Chronic kidney disease ?N18.9 - Chronic kidney disease, unspecified (ICD-10) Acute neck pain ?M54.2 - Cervicalgia (ICD-10) Head injury due to trauma ?S09.90XA - Unspecified injury of head, initial encounter (ICD-10) Urinary tract infection ?N39.0 - Urinary tract infection, site not specified (ICD-10) GERD without esophagitis ?K21.9 - Gastro-esophageal reflux disease without esophagitis (ICD-10) Gout due to renal impairment ?M10.30 - Gout due to renal impairment, unspecified site (ICD-10) Osteoarthritis ?M19.90 - Unspecified osteoarthritis, unspecified site (ICD-10) Anemia ?D64.9 - Anemia, unspecified (ICD-10) Carpal tunnel syndrome ?G56.00 - Carpal tunnel syndrome, unspecified upper limb (ICD-10) Acid reflux ?K21.9 - Gastro-esophageal reflux disease without esophagitis (ICD-10) Cirrhosis of liver ?K74.60 - Unspecified cirrhosis of liver (ICD-10) Kidney stone ?N20.0 - Calculus of kidney (ICD-10) Kidney failure ?N19 - Unspecified kidney failure (ICD-10) Asthma ?J45.909 - Unspecified asthma, uncomplicated (ICD-10) High cholesterol ?E78.00 - Pure hypercholesterolemia, unspecified (ICD-10) Surgical History History of appendectomy ?Z90.49 - Acquired absence of other specified parts of digestive tract (ICD-10) History of hysterectomy ?Z90.710 - Acquired absence of both cervix and uterus (ICD-10) History of neck surgery ?Z98.890 - Other specified postprocedural states (ICD-10) Hx of cholecystectomy ?Z90.49 - Acquired absence of other specified parts of digestive tract (ICD-10) History of lumbar laminectomy ?Z98.890 - Other specified postprocedural states (ICD-10) History of cardiac cath ?Z98.890 - Other specified postprocedural states (ICD-10) Family History Father Family history of CHF (congestive heart failure) Family history of COPD (chronic obstructive pulmonary disease) Family history of cancer Family history of diabetes mellitus Family history of hypertension Mother Family history of diabetes mellitus Family history of hypertension Family history of myocardial infarction Sister Family history of myocardial infarction Social History Within the past year, how often did you have a drink containing alcohol: never Score interpretation: A score less than 3 is consistent with normal alcohol consumption. Smoking status: Never smoker Non-prescribed substance use: denies use Previous occupational history: retired Highest level of school completed/degree received: don't know Are you now , , , , never or living with a partner: Little interest or pleasure in doing things: not at all Feeling down, depressed, or hopeless: not at all Do you think of yourself as: straight/heterosexual Gender Identity: female Meds Home Medications and Allergies Home Medications ?Medication ?Instructions ?Recorded ?Confirmed ?Type aspirin 81 mg tablet,delayed 81 mg PO DAILY 04/26/23 01/02/25 History release atorvastatin 80 mg tablet 80 mg PO DAILY 04/26/23 01/02/25 History baclofen 10 mg tablet 10 mg PO .QHS 04/26/23 01/02/25 History insulin lispro 100 unit/mL 6 unit subcut BIDWM 04/26/23 01/02/25 History subcutaneous pen theophylline 400 mg 400 mg PO .QHS 04/26/23 01/02/25 History tablet,extended release 24 hr fluticasone furoate 200 1 inh inhalation Q24H 11/24/24 01/02/25 History mcg-vilanterol 25 mcg/dose inhalation powder (Breo Ellipta) insulin glargine 100 unit/mL (3 46 unit subcut .qhs 11/24/24 01/02/25 History mL) subcutaneous pen (Lantus Solostar U-100 Insulin) montelukast 10 mg tablet 10 mg PO .QHS 11/24/24 01/02/25 History pregabalin 75 mg capsule (Lyrica) 75 mg PO DAILY 11/24/24 01/02/25 History fluconazole 200 mg tablet 400 mg (2 x 200 mg) PO DAILY #60 12/09/24 01/02/25 Rx tabs food supplemt, lactose-reduced 1 ea PO BID #5,688 mL 12/09/24 01/02/25 Rx (Ensure Active Protein-Muscle oral liquid) pantoprazole 40 mg tablet,delayed 40 mg PO DAILY #30 tabs 12/09/24 01/02/25 Rx release (Protonix) acetaminophen 500 mg tablet 1,000 mg PO .q8hr PRN pain 01/02/25 01/02/25 History albuterol 90 mcg/actuation aerosol 90 mcg inhalation Q4H PRN sob 01/02/25 01/02/25 History inhaler amoxicillin 875 mg tablet 875 mg PO BID 01/02/25 01/02/25 History artificial 2 drp ophthalmic (eye) TID PRN dry 01/02/25 01/02/25 History tears(wdfhjzc-lqpfetlb-aajouax) eye(s) 0.1 %-0.3 %-0.2 % eye drops (GenTeal Tears Moderate) carvedilol 12.5 mg tablet 25 mg PO BID 01/02/25 01/02/25 History hydroxyzine HCl 25 mg tablet 25 mg PO QID PRN itching 01/02/25 01/02/25 History lisinopril 40 mg tablet 40 mg PO DAILY 01/02/25 01/02/25 History loratadine 10 mg tablet 10 mg PO DAILY 01/02/25 01/02/25 History ondansetron 4 mg disintegrating 4 mg PO Q6H PRN nausea and vomiting 01/02/25 01/02/25 History tablet sennosides 8.6 mg tablet 8.6 mg PO BID 01/02/25 01/02/25 History (Black-Draught Lax-Senna) Allergies Allergy/AdvReac Type Severity Reaction Status Date / Time adhesive tape Allergy Unknown rash Verified 01/02/25 07:16 povidone-iodine (From Allergy Unknown Rash Verified 01/02/25 07:16 Betadine) red dye Allergy Unknown Rash Verified 01/02/25 07:16 Sulfa (Sulfonamide Allergy Unknown Rash Verified 01/02/25 07:16 Antibiotics) tetracycline Allergy Unknown Rash Verified 01/02/25 07:16 Exam Constitutional Vital Signs, click to edit/add: Last Vital Signs Temp 98.7 F 01/02/25 09:29 Pulse 58 L 01/02/25 11:55 Resp 20 01/02/25 11:55 BP 176/81 H 01/02/25 11:55 Pulse Ox 96 01/02/25 11:55 O2 Del Method Room Air 01/02/25 11:55 O2 Flow Rate 2 01/02/25 05:05 Documenting provider has reviewed patient's vital signs: yes Common normals: no apparent distress and oriented x3 General appearance: cooperative [facility] Common normals: normocephalic and head/scalp atraumatic Head and scalp: normocephalic and atraumatic Eye Common normals: conjunctivae normal and no scleral icterus Conjunctiva: conjunctiva(e) normal Respiratory Common normals: normal respiratory effort and clear to auscultation bilaterally Effort & inspection: able to speak in complete sentences Auscultation: clear to auscultation bilaterally Cardio Common normals: regular rate, S1 normal heart sound and S2 normal heart sound Rate: regular rate Heart sounds: S1 normal and S2 normal GI Common normals: Normal to inspection, nondistended, normoactive bowel sounds present, soft to palpation, non-tender and no hepatosplenomegaly Palpation: soft and no hepatosplenomegaly Extremity Other: Restricted ROM of RUE due to pain. Tenderness along right shoulder blade. Neuro Common normals: oriented x3, moves all extremities and no focal motor deficits Psych Common normals: mental status grossly normal, denies hallucinations, denies homicidal ideation and denies suicidal ideation Results Labs Labs: Short CBC 01/02/25 Range/Units 04:54 WBC 6.2 (4.0-11.0) 10^3/uL Hgb 10.0 L (12.0-16.0) g/dL Hct 31.9 L (36.0-48.0) % Plt Count 173 (150-450) 10^3/uL BMP 01/02/25 04:54 Sodium 142 Potassium 4.3 Chloride 108 H Carbon Dioxide 29.5 BUN 27.0 H Creatinine 1.31 H Glucose 129 H Calcium 8.8 Liver Function 01/02/25 Range/Units 04:54 Total Bilirubin 0.3 (0.2-1.0) mg/dL AST 21 (15-37) U/L ALT 19 (14-59) U/L Alkaline Phosphatase 100 (46-116) U/L Albumin 1.9 L (3.4-5.0) g/dL Assessment and Plan Assessment and Plan (1) Left arm pain: (2) Left-sided chest pain: (3) CKD stage 3b, GFR 30-44 ml/min: (4) HLD (hyperlipidemia): Qualifiers: Hyperlipidemia type: unspecified Qualified Code(s): E78.5 - Hyperlipidemia, unspecified (5) Diabetes: Qualifiers: Diabetes mellitus type: type 2 Diabetes mellitus mcfp insulin use: with mcfp use Diabetes mellitus complication status: with kidney complications Diabetes mellitus complication detail: with chronic kidney disease Chronic kidney disease stage: stage 3 (moderate) Chronic kidney disease stage 3 subtype: stage 3b (GFR 30-44) Qualified Code(s): E11.22 - Type 2 diabetes mellitus with diabetic chronic kidney disease; N18.32 - Chronic kidney disease, stage 3b; Z79.4 - intermediate manager (current) use of insulin (6) COPD (chronic obstructive pulmonary disease): Qualifiers: COPD type: unspecified COPD Qualified Code(s): J44.9 - Chronic obstructive pulmonary disease, unspecified (7) 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 Qualified Code(s): I15.2 - Hypertension secondary to endocrine disorders (8) Lumbar radiculopathy, chronic: (9) GERD without esophagitis: Plan Chest pain likely musculoskeletal and resolved. Still has left arm pain that is likely due to combination of cervical radiculopathy and arthritic changes of wrist joint. Patient can be discharged to rehab and c/w rehab. Will add Tizanidine for muscular pain. Add PO oxycodone for 3 days for acute pain control. ok to resume rest of home medications. If worsening pain, or no improvement, will need orthopedic evaluation
== END 2025-01-02 17:23 ==
LOC: ER 07:19 → MS 12:12
PROVIDERS: Admitting Provider Internal Medicine; Emergency Provider Emergency Medicine; PCP Family Medicine; Visit Provider Internal Medicine
DX: R07.9 Chest pain, unspecified (principal); Z79.82 Long term (current) use of aspirin; Z79.899 Other long term (current) drug therapy; M25.532 Pain in left wrist; Z90.710 Acquired absence of both cervix and uterus; Z90.49 Acquired absence of other specified parts of digestive tract; R11.0 Nausea; M19.032 Primary osteoarthritis, left wrist; Z87.440 Personal history of urinary (tract) infections; M79.602 Pain in left arm; N18.32 Chronic kidney disease, stage 3b; E78.5 Hyperlipidemia, unspecified; E11.22 Type 2 diabetes mellitus with diabetic chronic kidney disease; Z79.4 Long term (current) use of insulin; J44.9 Chronic obstructive pulmonary disease, unspecified; I12.9 Hypertensive chronic kidney disease with stage 1 through stage 4 chronic kidney disease, or unspecified chronic kidney disease; M54.16 Radiculopathy, lumbar region; K21.9 Gastro-esophageal reflux disease without esophagitis; M54.12 Radiculopathy, cervical region
CPT/HCPCS: 36415; 70450; 71045; 73110; 80053; 83690; 83880; 84484; 85025; 85610; 93005; 94761; 96374; 96375; 96376; 97161; 97165; 97530; 99285; G0378; J0360; J0780; J1644; J2270; J2405

== ENCOUNTER 2025-01-03 21:52 | Inpatient (IN) | payer MEDICARE, SELFPAY ==
[2025-01-03] VITALS (13 sets, daily range): BP systolic 175–206; BP diastolic 74–88; PULSE 56–68; TEMP 37.4; O2SAT 93–99
--- OUTSIDE RECORDS SUMMARY | 2025-01-03 22:02 | XMS_ITS | CCD ---
Author Organization [facility] Care Team Providers Care Digital Watch Assembler Name Role Phone ELTAHAWY, EHAB A Attending [...] DR FERNIE Ricketts Primary Care Unavailable TAMMY, GAI Attending Unavailable TAMMY, GIA Consulting Unavailable TAMMY, [...] Unavailable Furlong, DO Enciso Primary Care Provider [phone] MD Gia Munoz Attending Provider [phone] FURLONG, FERNIE Ricketts Attending Unavailable FURLONG, FERNIE [...] Care Unavailable Furlong DOFernie Primary Care Provider [phone] Kirsten RAND, Christian Rodríguez Attending Unavailable Kirsten RAND, Andgolden Rodríguez Attending Unavailable Kirsten RAND, Nenarius Rodríguez Attending Unavailable Kirsten RAND, Christian Rodríguez Attending Unavailable Furlong Fernie CAMACHO Primary Care Provider [phone] Gaetano Viera DO Attending Provider Unavailab le [...] Care Unavailable TAMMY, GIA Referring Unavailable FURLONG, EFRNIE Ricketts Primary Care [...] Adhesive Tape Substance Allergy 04-24-20 13 [facility] Repository Povidone-Iodine (1 source) Povidone-Iodine Drug Allergy 04-24-20 13 [facility] Rep[facility] Sulfonamides (antibiotic) (1 source) Sulfonamides (Antibiotic) Drug Allergy 04-24-20 13 [facility] Tetracyclines (antibiotic) (1 source) Tetracyclines Drug Allergy 04-24-20 13 [facility] Repository (20 sources) Povidone-Iodine; Translations: [POVIDONE-IODINE] Drug Allergy 11-25-19 15 [facility] Repository (10 sources) Sulfonamides (Antibiotic) Propensity to adverse reactions DosYogures Other (13 sources) Tetracycline Drug Allergy 11-16-19 24 [facility] (12 sources) Adhesive 1 x6yd Drug allergy 11-08-20 23 [facility] (12 sources) Amlodipine & Diet Manage Prod Drug allergy 11-08-20 23 [facility] (2 sources) Povidone-Iodine; Translations: [Betadine] Drug Allergy 04-23-20 13 rash [facility] Repository (20 sources) Contrast media; Translations: [RED DYE] Drug allergy (disorder) 05-04-20 17 Rash [facility] Repository (4 sources) Desonide Drug Allergy 04-23-20 13 Rash [facility] Repository (1 source) Sulfonamides (Antibiotic) Drug allergy (disorder) 04-23-20 13 [facility] Repository (1 source) Tetracycline Drug Allergy 04-23-20 13 [facility] Repository (20 sources) Adhesive agent; Translations: [ADHESIVE] Propensity to adverse reactions to drug (disorder) 11-25-19 15 Itching, Other (See Comments) [facility] Repository (20 sources) Sulfonamides (Antibiotic); Translations: [SULFA (SULFONAMIDE ANTIBIOTICS)] Propensity to adverse reactions to drug (disorder) 11-25-[address] [facility] Repository (20 sources) Tetracyclines; Translations: [TETRACYCLINES] Propensity to adverse reactions to drug (disorder) 11-25-19 15 [facility] Repository (20 sources) dilTIAZem; Translations: [DILTIAZEM] Drug Allergy 09-01-20 22 [facility] Repository (20 sources) Linagliptin; Translations: [LINAGLIPTIN] [...] as needed Orally TWICE A DAY Active [id number] 200 actuat albuterol 0.09 mg/actuat metered dose [...] blood-glucose meter (TRUE METRIX GLUCOSE METER) misc (14 sources) Start: 11-18-2024 blood-glucose meter (TRUE METRIX GLUCOSE METER) [facility] Unit by miscellaneous route in the [...] April 30, 2024 11:00pm Fish,Bora,Flax Oils-Om3,6,9n o1 (Conroy 3-6-9) 1,200 mg capsule (2 sources) Start: 05-01-2024 Fish,Bora,Flax Oils-Om3,6,9no1 (Conroy 3-6-9) 1,200 mg capsule Active CAP PO April 30, 2024 11:00pm Start: 05-01-2024 Fish,Bora,Flax Oils-Om3,6,9no1 (Conroy 3-6-9) 1,200 mg capsule Active CAP PO [...] disease, with long-term current use of insulin ([facility]) Inject 46 Units under the skin in [...] For Her 50 + - Orally Active sgqbwtes-fhwv-CZ-calci um &mins (THERAGRAN-M) 9 mg iron-400 mcg tablet (20 sources) ahqstdau-fjxo-KV -calc ium &mins (THERAGRAN-M) 9 mg iron-400 mcg tablet Take 1 tablet by mouth in the morning. Active ypngbooa-puez-UU -calcium &mins (THERAGRAN-M) 9 mg iron-400 mcg [...] 5 days. 20 tablet 12/10/2024 12/15/2024 Active Conroy 3-6-9 Complex - (10 sources) Conroy 3-6-9 Comp fawad - Orally Active omega-3 [...] oral capsule (20 sources) Start: 05-01-2024 End: 12-31-2024 take 1 capsule by mouth once daily pregabalin (LYRICA) 75 mg capsule Indications: Lumbar stenosis with neurogenic claudication Take 1 capsule (75 mg total) by mouth daily. 14 capsule 12/31/2024 Active take 1 capsule by mouth every [...] morning. 05/27/2024 Discontinued (Therapy completed) estrogens, conjugated (mcc) 0.625 mg/ml vaginal cream (7 sources) Estrogen [...] Problem Date Documented Date Episodic/Chronic Anxiety disorders (7 sources) Anxiety; Translations: [Anxiety disorder, unspecified] Onset: 5 12-27-2024 Chronic Asthma (20 sources) Asthma; Translations: [...] disease (20 sources) Atherosclerotic heart disease of [place] coronary artery without angina pectoris; Translations: [Coronary [...] 1 Resolved: 2 Chronic Nausea and vomiting (7 sources) Nausea; Translations: [Nausea] Onset: 5 12-27-2024 [...] Outpatient Infusion Onset: 4 Urinary tract infections (7 sources) Acute cystitis; Translations: [Acute cystitis with [...] 09-01-2022 09-01-2022 Episodic Other aftercare (3 sources) 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 PERFORMED BY: [address] [place] [address] PATHOLOGIST SUPERVISOR SPECIAL EDUCATION MARIO PUTNAM M.D. Normal [facility] Comment on above: Performed By: #### C UU #### [facility] [address] MAGNESIUMon 11-17-2024 Magnesium [Mass/Vol] 1.8 mg/dL Normal 1.8-2.[address] [facility] Comment on above: Performed By: #### 1 9123-9 ####[facility] ([id number])[address] [place] [address] MAGNESIUMon 11-10-2024 Magnesium [Mass/Vol] 1.8 mg/dL Normal 1.8-2.[address] [facility] Comment on above: Performed By: #### 1 9123-9 ####[facility] ([id number])[address] [place] [address] MAGNESIUMon 11-03-2024 Magnesium [Mass/Vol] 1.7 mg/dL Low 1.8-2.[address] [facility] Comment on above: Performed By: #### 1 9123-9 ####[facility] ([id number])[address] [place] [address] MAGNESIUMon 10-27-2024 Magnesium [Mass/Vol] 1.8 mg/dL Normal 1.8-2.[address] [facility] Comment on above: Performed By: #### 1 9123-9 ####[facility] ([id number])[address] [place] [address] MAGNESIUMon 10-20-2024 Magnesium [Mass/Vol] 1.9 mg/dL Normal 1.8-2.[address] [facility] Comment on above: Performed By: #### 1 9123-9 ####[facility] ([id number])[address] [place] [address] MAGNESIUMon 10-13-2024 Magnesium [Mass/Vol] 1.8 mg/dL Normal 1.8-2.[address] [facility] Comment on above: Performed By: #### 1 9123-9 ####[facility] ([id number])[address] [place] [address] MAGNESIUMon 10-06-2024 Magnesium [Mass/Vol] 1.7 mg/dL Low 1.8-2.[address] [facility] Comment on above: Performed By: #### 1 9123-9 ####[facility] ([id number])[address] [place] [address] MAGNESIUMon 09-29-2024 Magnesium [Mass/Vol] 1.7 mg/dL Low 1.8-2.[address] [facility] Comment on above: Performed By: #### 1 9123-9 ####[facility] ([id number])[address] [place] [address] Glucose Glucometer (BldC) [M ass/Vol]on 09-26-2024 Glucose [Mass/Vol] 154 mg/dL High 65-99 [facility] Surgical Pathologyon 024 Surgical Pathology Normal [facility] Comment on above: Result Comment: [facility] [address] [place] [address] Surgical Pathology ConsultationPatient Name:ADORE WOLFF:1940 (Age: 83)Gender:FTaken:4Reported:4Physician(s):Daniel Guerrero MD ([phone])Copy To: Rec. #:[id number]: #[id number] Pathologic Diagnosis1. Duodenum, second portion, biopsy: Duodenal mucosa with no significant diagnostic abnormality. No evidence of celiac disease.2. Duodenum, bulb, biopsy: Ectopic gastric mucosa.3. Stomach, polypectomy: Fundic gland polyp.4. Esophagus, distal, biopsy: Junctional mucosa with no significant diagnostic abnormality. No evidence of intestinal metaplasia. Report Electronically Signed Outrg/4Rpaula Coto MDInterpretation performed at [facility], [address] [place] [address], License number: [id number].Clinical History Orss's esophagus.Gross Description1. Received in formalin labeled KUSS, second portion of duodenum are two light abbott soft tissue bits, 0.2 cm each. The specimen is filtered and entirely submitted in a single cassette. (1, ns, [id number],m3) DM.2. .Received in formalin labeled KUSS, duodenal bulb biopsies are three light abbott soft tissue bits, 0.2 cm each. The specimen is filtered and entirely submitted in a single cassette. (1, ns, [id number],m3) DM.3. Received in formalin labeled KUSS, fundic gland polyp is a light abbott soft tissue bit, 0.3 cm. The specimen is filtered and entirely submitted in a single cassette. (1, ns, [id number],m3) DM.4. Received in formalin labeled KUSS, distal esophageal biopsy are three pale-abbott soft tissue bits, 0.2 cm each. The specimen is filtered and entirely submitted in a single cassette. (1, ns, [id number],m3) DM.dm/09/27/2024GRSpecimen(s) Received1: Second portion of duodenum biopsies2: Duodenal bulb biopsy3: Fundic gland polyp4: Esophageal distal biopsyFee Codes(s):1; 808931; 973658; 768485; 82710 MAGNESIUMon 09-22-2024 Magnesium [Mass/Vol] 1.8 mg/dL Normal 1.8-2.[address] [facility] Comment on above: Performed By: #### 1 9123-9 ####[facility] ([id number])[address] [place] [address] MAGNESIUMon 09-15-2024 Magnesium [Mass/Vol] 1.8 mg/dL Normal 1.8-2.[address] [facility] Comment on above: Performed By: #### 1 9123-9 ####[facility] ([id number])[address] [place] [address], [place] [address] MAGNESIUMon 09-08-2024 Magnesium [Mass/Vol] 1.7 mg/dL Low 1.8-2.[address] [facility] Comment on above: Performed By: #### 1 9123-9 ####[facility] ([id number])[address] [place] [address], [place] [address] MAGNESIUMon 09-01-2024 Magnesium [Mass/Vol] 1.8 mg/dL Normal 1.8-2.[address] [facility] Comment on above: Performed By: #### 1 9123-9 ####[facility] ([id number])[address] [place] [address], [place] [address] MAGNESIUMon 08-25-2024 Magnesium [Mass/Vol] 1.6 mg/dL Low 1.8-2.[address] [facility] Comment on above: Performed By: #### 1 9123-9 ####[facility] ([id number])[address] [place] [address], [place] [address] MAGNESIUMon 08-18-2024 Magnesium [Mass/Vol] 1.6 mg/dL Low 1.8-2.[address] [facility] Comment on above: Performed By: #### 1 9123-9 ####[facility] ([id number])[address] [place] [address], [place] [address] MAGNESIUMon 08-11-2024 Magnesium [Mass/Vol] 1.6 mg/dL Low 1.8-2.[address] [facility] Comment on above: Performed By: #### 1 9123-9 ####[facility] ([id number])[address] [place] [address], [place] [address] MAGNESIUMon 08-04-2024 Magnesium [Mass/Vol] 1.5 mg/dL Low 1.8-2.[address] [facility] Comment on above: Performed By: #### 1 9123-9 ####[facility] ([id number])[address] [place] [address] MAGNESIUMon 07-28-2024 Magnesium [Mass/Vol] 1.5 mg/dL Low 1.8-2.[address] [facility] Comment on above: Performed By: #### 1 9123-9 ####[facility] ([id number])[address] [place] [address] MAGNESIUMon 07-21-2024 Magnesium [Mass/Vol] 1.6 mg/dL Low 1.8-2.[address] [facility] Comment on above: Performed By: #### 1 9123-9 ####[facility] ([id number])[address] [place] [address] MAGNESIUMon 07-15-2024 Magnesium [Mass/Vol] 1.5 mg/dL Low 1.8-2.[address] [facility] Comment on above: Performed By: #### 1 9123-9 ####[facility] ([id number])[address] [place] [address], [place] [address] MAGNESIUMon 07-07-2024 Magnesium [Mass/Vol] 1.6 mg/dL Low 1.8-2.[address] [facility] Comment on above: Performed By: #### 1 9123-9 ####[facility] ([id number])[address] [place] [address], [place] [address] MAGNESIUMon 06-30-2024 Magnesium [Mass/Vol] 1.6 mg/dL Low 1.8-2.[address] [facility] Comment on above: Performed By: #### 1 9123-9 ####[facility] ([id number])[address] [place] [address] MAGNESIUMon 06-23-2024 Magnesium [Mass/Vol] 1.7 mg/dL Low 1.8-2.[address] [facility] Comment on above: Performed By: #### 1 9123-9 ####[facility] ([id number])[address] [place] [address] MAGNESIUMon 06-16-2024 Magnesium [Mass/Vol] 1.7 mg/dL Low 1.8-2.[address] [facility] Comment on above: Performed By: #### 1 9123-9 ####[facility] ([id number])[address] [place] [address] MAGNESIUMon 06-09-2024 Magnesium [Mass/Vol] 1.7 mg/dL Low 1.8-2.[address] [facility] Comment on above: Performed By: #### 1 9123-9 ####[facility] ([id number])[address] [place] [address] MAGNESIUMon 06-02-2024 Magnesium [Mass/Vol] 1.6 mg/dL Low 1.8-2.[address] [facility] Comment on above: Performed By: #### 1 9123-9 ####[facility] ([id number])[address] [place] [address] URINE CULTUREon 05-30-2024 Bacteria identified Cx Nom [...] TOBRAMYCIN S <=1 F TRIMETH/SULFAMETHOXAZOL E S <=/19 F Susceptible [facility] Comment on above: Performed By: #### 6 30-4 #### [facility] ([id number]) [address] [facility], [address] [place] [address] POCT Hemoglobin A1con 2023 HbA1c (Bld) [Mass fraction] 7.1 g/dL Abnormal 4 - 7 g/dL [facility] Interpretation and review of laboratory results Abnormal [facility] POCT urinalysis dipstick onl yon 05-27-2024 Appearance (U) cloudy [facility] External Poct Urine Bilirubin Negative [facility] External Poct Urine Blood Trace [facility] External Poct Urine Color yellow [facility] External Poct Urine Glucose Negative [facility] External Poct Urine Ketones Negative [facility] External Poct Urine Leukocyte Esterase Moderate [facility] External Poct Urine Nitrite Negative [facility] External Poct Urine Ph 5.5 [facility] External Poct Urine Protein 3+ [facility] Comment on above: >=300 External Poct Urine Specific Odum 1.025 [facility] External Poct Urine Urobilinogen 0.2 [facility] URINE CULTUREon 05-27-2024 Bacteria identified Cx Nom (U) CULTURE RESULTS MULTIPLE SPECIES PRESENT. PROBABLE COLLECTION CONTAMINATION. SUGGEST REPEAT SPECIMEN. Normal [facility] Comment on above: Performed By: #### 6 30-4 #### [facility] ([id number]) [address] [facility], [address] [place] [address] MAGNESIUMon 05-26-2024 Magnesium [Mass/Vol] 1.6 mg/dL Low 1.8-2.[address] [facility] Comment on above: Performed By: #### 1 9123-9 ####[facility] ([id number])[address] [place] [address] MAGNESIUMon 05-19-2024 Magnesium [Mass/Vol] 1.7 mg/dL Low 1.8-2.[address] [facility] Comment on above: Performed By: #### 1 9123-9 ####[facility] ([id number])[address] [place] [address] MAGNESIUMon 05-12-2024 Magnesium [Mass/Vol] 1.6 mg/dL Low 1.8-2.[address] [facility] Comment on above: Performed By: #### 1 9123-9 ####[facility] ([id number])[address], [address] [place] [address] MAGNESIUMon 05-05-2024 Magnesium [Mass/Vol] 1.4 mg/dL Low 1.8-2.[address] [facility] Comment on above: Performed By: #### 1 9123-9 ####[facility] ([id number])[address] [place] [address] MAGNESIUMon 04-28-2024 Magnesium [Mass/Vol] 1.5 mg/dL Low 1.8-2.[address] [facility] Comment on above: Performed By: #### 1 9123-9 ####[facility] ([id number])[address] [place] [address] COMPLETE BLOOD COUNTon 04-21 Erythrocyte distribution width (RBC) [Ratio] 16.6 % High 11.5-15.[address] [facility] Comment on above: Performed By: #### C BC, UPCR, FEPR, 38861-4, RENAL, 3084-1, 2276-4, 2731-8, 86665-6 ####[facility] ([id number])[address], [address] [place] [address] Hematocrit (Bld) [Volume fraction] 33.8 % Low 35-[address] [facility] Comment on above: Performed By: #### C BC, UPCR, FEPR, 37505-1, RENAL, 3084-1, 2276-4, 2731-8, 17778-0 ####[facility] ([id number])[address], [address] [place] [address] Hemoglobin (Bld) [Mass/Vol] 11.0 g/dL Low 11.7-15.[address] [facility] Comment on above: Performed By: #### C BC, UPCR, FEPR, 71218-9, RENAL, 3084-1, 2276-4, 2731-8, 45092-4 ####[facility] ([id number])[address], [address], [place] [address] MCH (RBC) [Entitic mass] 30.0 pg Normal 27-[address] [facility] Comment on above: Performed By: #### C BC, UPCR, FEPR, 15041-8, RENAL, 3084-1, 2276-4, 2731-8, 08761-8 ####[facility] ([id number])[address], [address] [place] [address] MCHC (RBC) [Mass/Vol] 32.7 g/dL Normal 32-[address] [facility] Comment on above: Performed By: #### C BC, UPCR, FEPR, 35774-3, RENAL, 3084-1, 2276-4, 2731-8, 76158-3 ####[facility] ([id number])[address], [address] [place] [address] MCV (RBC) [Entitic vol] 92 fL Normal 80-[address] [facility] Comment on above: Performed By: #### C BC, UPCR, FEPR, 70018-4, RENAL, 3084-1, 2276-4, 2731-8, 55054-3 ####[facility] ([id number])[address], [address] [place] [address] Platelet mean volume (Bld) [Entitic vol] 9.5 fL Normal 7-[address] [facility] Comment on above: Performed By: #### C BC, UPCR, FEPR, 72228-9, RENAL, 3084-1, 2276-4, 2731-8, 94686-2 ####[facility] ([id number])[address], [address] [place] [address] Platelets (Bld) [#/Vol] 182 10*3/uL Normal 150-[address] [facility] Comment on above: Performed By: #### C BC, UPCR, FEPR, 27738-0, RENAL, 3084-1, 2276-4, 2731-8, 32092-0 ####[facility] ([id number])[address], [address] [place] [address] RBC COUNT 3.68 X10E12/L Low 3.80-5.[address] [facility] Comment on above: Performed By: #### C BC, UPCR, FEPR, 11415-7, RENAL, 3084-1, 2276-4, 2731-8, 55852-3 ####[facility] ([id number])[address] [address] [place] [address] WBC (Bld) [#/Vol] 6.2 10*3/uL Normal 4.0-11.0 [facility] Comment on above: Performed By: #### C BC, UPCR, FEPR, 73390-7, RENAL, 3084-1, 2276-4, 2731-8, 71578-8 ####[facility] ([id number])[address] [address] FERRITINon 04-21-2024 Ferritin [Mass/Vol] 113 ng/mL Normal 11-307 [facility] Comment on above: Performed By: #### C BC, UPCR, FEPR, 46973-7, RENAL, 3084-1, 2276-4, 2731-8, 97897-4 ####[facility] ([id number])[address] [address] [place] [address] IRON PROFILEon 04-21-2024 Iron [Mass/Vol] 56 ug/dL Normal 50-[address] [facility] Comment on above: Performed By: #### C BC, UPCR, FEPR, 34956-0, RENAL, 3084-1, 2276-4, 2731-8, 95923-7 ####[facility] ([id number])[address], [address] [place] [address]226 IRON BINDING 307 ug/dL Normal 250-[address] [facility] Comment on above: Performed By: #### C BC, UPCR, FEPR, 60024-4, RENAL, 3084-1, 2276-4, 2731-8, 09748-7 ####[facility] ([id number])[address], [address] [place] [address] IRON SATURATION 18 % SATURATION Normal 15-50 [facility] Comment on above: Performed By: #### C BC, UPCR, FEPR, 17152-9, RENAL, 3084-1, 2276-4, 2731-8, 34249-7 ####[facility] ([id number])[address] [address] [place] [address] MAGNESIUMon 04-21-2024 Magnesium [Mass/Vol] 1.4 mg/dL Low 1.8-2.[address] [facility] Comment on above: Performed By: #### C BC, UPCR, FEPR, 95009-1, RENAL, 3084-1, 2276-4, 2731-8, 65025-2 ####[facility] ([id number])[address] [address] [place] [address]120 PROTEIN CREAT RATIOon 2023 RANDOM URINE PROTEIN 470 mg/L High <[address] [facility] Comment on above: Performed By: #### C BC, UPCR, FEPR, 07677-8, RENAL, 3084-1, 2276-4, 2731-8, 67159-6 ####[facility] ([id number])[address] [address] [place] [address] U/PRO/STUNNER AND SHACKLER RATIO CALC 0.50 High <0.[address] [facility] Comment on above: Result Comment: Neph rotic Syndrome is associated with ratios >3.5 Performed By: #### C BC, UPCR, FEPR, 55028-1, RENAL, 3084-1, 2276-4, 2731-8, 36452-4 ####[facility] ([id number])[address], [address], [place] [address] URINE CREATININE,RDM 94.29 mg/dL Normal [facility] Comment on above: Performed By: #### C BC, UPCR, FEPR, 79474-4, RENAL, 3084-1, 2276-4, 2731-8, 56772-3 ####[facility] ([id number])[address], [address], [place] [address] Parathyrin.intact [Mass/Vol] on 04-21-2024 PTH INTACT 168 pg/mL High 12-[address] [facility] Comment on above: Performed By: #### C BC, UPCR, FEPR, 04151-8, RENAL, 3084-1, 2276-4, 2731-8, 99465-5 ####[facility] ([id number])[address], [place] [address] RENAL PANELon 04-21-2024 Albumin [Mass/Vol] 3.7 g/dL Normal 3.2-5.3 [facility] Comment on above: Performed By: #### C BC, UPCR, FEPR, 08077-6, RENAL, 3084-1, 2276-4, 2731-8, 43226-7 ####[facility] ([id number])[address] [address], [place] [address] Anion gap [Moles/Vol] 11 mmol/L Normal 5-[address] [facility] Comment on above: Performed By: #### C BC, UPCR, FEPR, 12823-1, RENAL, 3084-1, 2276-4, 2731-8, 54188-7 ####[facility] ([id number])[address], [address] [place] [address] Calcium [Mass/Vol] 8.9 mg/dL Normal 8.5-10.5 [facility] Comment on above: Performed By: #### C BC, UPCR, FEPR, 69688-4, RENAL, 3084-1, 2276-4, 2731-8, 23249-1 ####[facility] ([id number])[address], [address] [address] Chloride [Moles/Vol] 106 mmol/L Normal 98-[address] [facility] Comment on above: Performed By: #### C BC, UPCR, FEPR, 78455-9, RENAL, 3084-1, 2276-4, 2731-8, 45844-6 ####[facility] ([id number])[address] [address] [place] [address] CO2 [Moles/Vol] 26 mmol/L Normal 22-[address] [facility] Comment on above: Performed By: #### C BC, UPCR, FEPR, 89560-1, RENAL, 3084-1, 2276-4, 2731-8, 93281-0 ####[facility] ([id number])[address], [address] [address] Creatinine [Mass/Vol] 1.78 mg/dL High 0.40-1.[address] [facility] Comment on above: Result Comment: METH OD TRACEABLE TO IDMS STANDARD Performed By: #### C BC, UPCR, FEPR, 37895-8, RENAL, 3084-1, 2276-4, 2731-8, 68525-1 ####[facility] ([id number])[address] [address] [place] [address] GFR/1.73 sq M.predicted among non-blacks MDRD (S/P/Bld) [Vol rate/Area] 28 mL/min/{1.73_m2} Low >[address] [facility] Comment on above: Result Comment: Repo rted eGFR is based on theCKD-EPI 2020 equation that doesnot use a race coefficient. Performed By: #### C BC, UPCR, FEPR, 24975-9, RENAL, 3084-1, 2276-4, 2731-8, 79972-5 ####[facility] ([id number])[address], [address], [place] [address] Glucose [Mass/Vol] 157 mg/dL High 65-99 [facility] Comment on above: Performed By: #### C BC, UPCR, FEPR, 76751-5, RENAL, 3084-1, 2276-4, 2731-8, 43007-9 ####[facility] ([id number])[address], [address], [place] [address] Phosphate [Mass/Vol] 3.8 mg/dL Normal 2.4-4.[address] [facility] Comment on above: Performed By: #### C BC, UPCR, FEPR, 71794-6, RENAL, 3084-1, 2276-4, 2731-8, 88188-5 ####[facility] ([id number])[address], [address], [place] [address] Potassium [Moles/Vol] 4.2 mmol/L Normal 3.5-5.[address] [facility] Comment on above: Performed By: #### C BC, UPCR, FEPR, 32258-5, RENAL, 3084-1, 2276-4, 2731-8, 81952-8 ####[facility] ([id number])[address], [address], [place] [address] Sodium [Moles/Vol] 143 mmol/L Normal 134-146 [facility] Comment on above: Performed By: #### C BC, UPCR, FEPR, 10128-9, RENAL, 3084-1, 2276-4, 2731-8, 81508-4 ####[facility] ([id number])[address], [address] [place] [address] Urea nitrogen [Mass/Vol] 42 mg/dL High 5-[address] [facility] Comment on above: Performed By: #### C BC, UPCR, FEPR, 17514-9, RENAL, 3084-1, 2276-4, 2731-8, 45537-0 ####[facility] ([id number])[address] [place] [address] URIC ACIDon 04-21-2024 Urate [Mass/Vol] 4.3 mg/dL Normal 2.6-7.2 [facility] Comment on above: Performed By: #### C BC, UPCR, FEPR, 27694-7, RENAL, 3084-1, 2276-4, 2731-8, 81277-9 ####[facility] ([id number])[address], [address] [place] [address] URINALYSISon 04-21-2024 Bilirubin Ql (U) Negative Normal NEG [facility] Comment on above: Performed By: #### U A ####[facility] ([id number])[address], [address], [place] [address] BLOOD/HGB Trace Abnormal NEG [facility] Comment on above: Performed By: #### U A ####[facility] ([id number])[address], [address] [place] [address] Color (U) YELLOW Normal YELLOW [facility] Comment on above: Performed By: #### U A ####[facility] ([id number])[address], [address] [place] [address] Glucose Ql (U) Negative Normal NEG [facility] Comment on above: Performed By: #### U A ####[facility] ([id number])[address], [address] [place] [address] Ketones Ql (U) Negative Normal NEG [facility] Comment on above: Performed By: #### U A ####[facility] ([id number])[address], [address] [place] [address] Leukocyte esterase Test strip Ql (U) Large Abnormal NEG [facility] Comment on above: Performed By: #### U A ####[facility] ([id number])[address], [address] [place] [address] MUCOUS PRESENT Abnormal NONE [facility] Comment on above: Performed By: #### U A ####[facility] ([id number])[address] [facility] [address] [place] [address] Nitrite Ql (U) Negative Normal NEG [facility] Comment on above: Performed By: #### U A ####[facility] ([id number])[address] [address] [place] [address] pH (U) 6.0 [pH] Normal 5.0-8.[address] [facility] Comment on above: Performed By: #### U A ####[facility] ([id number])[address] [address] [place] [address] Protein Ql (U) 50 mg/dL Abnormal NEG [facility] Comment on above: Performed By: #### U A ####[facility] ([id number])[address] [address] [place] [address] R.B.CELLS 5 /hpf Normal 0-[address] [facility] Comment on above: Performed By: #### U A ####[facility] ([id number])[address] [address] [place] [address] Specific gravity (U) [Rel density] 1.014 Normal 1.003-1.[address] [facility] Comment on above: Performed By: #### U A ####[facility] ([id number])[address], [address], [place] [address] SQUAMOUS EPITHELIUM 1 /hpf Normal 0-5 [facility] Comment on above: Performed By: #### U A ####[facility] ([id number])[address], [address], [place] [address] TURBIDITY HAZY Abnormal CLEAR [facility] Comment on above: Performed By: #### U A ####[facility] ([id number])[address], [address], [place] [address] Urobilinogen (U) [Mass/Vol] mg/dL Normal <1.[address] [facility] Comment on above: Performed By: #### U A ####[facility] ([id number])[address] [address], [place] [address] W.B.CELLS 455 /hpf High 0-[address] [facility] Comment on above: Performed By: #### U A ####[facility] ([id number])[address], [address], [place] [address] WBC CLUMPS RARE Abnormal NONE [facility] Comment on above: Performed By: #### U A ####[facility] ([id number])[address] [address], [place] [address] Vitamin D+Metabolites [Mass/ Vol]on 04-21-2024 VITAMIN D 25 HYD TOT 32.8 ng/mL Normal 30-[address] [facility] Comment on above: Result Comment: Radha min D status 25 [place] Vitamin D Deficiency <20 ng/mLInsufficiency 20-29 ng/mLSufficiency 30-100 ng/mLToxicity >100 ng/mLNOTE: A pediatric reference range has not beenestablished by the feeder switchboard operator of this kit.The [place] [employer] recommendsa Vitamin D level of = or >20ng/mL in infantsand children. Performed By: #### C BC, UPCR, FEPR, 05817-5, RENAL, 3084-1, 2276-4, 2731-8, 71008-4 ####[facility] ([id number])[address] [facility], [address] [place] [address] MAGNESIUMon 04-14-2024 Magnesium [Mass/Vol] 1.6 mg/dL Low 1.8-2.[address] [facility] Comment on above: Performed By: #### 1 9123-9 ####[facility] ([id number])[address] [place] [address] MAGNESIUMon 04-08-2024 Magnesium [Mass/Vol] 1.5 mg/dL Low 1.8-2.[address] [facility] Comment on above: Performed By: #### 1 9123-9 ####[facility] ([id number])[address] [place] [address] MAGNESIUMon 03-31-2024 Magnesium [Mass/Vol] 1.7 mg/dL Low 1.8-2.[address] [facility] Comment on above: Performed By: #### 1 9123-9 ####[facility] ([id number])[address] [place] [address] MAGNESIUMon 03-24-2024 Magnesium [Mass/Vol] 1.6 mg/dL Low 1.8-2.[address] [facility] Comment on above: Performed By: #### 1 9123-9 ####[facility] ([id number])[address] [place] [address] MAGNESIUMon 03-17-2024 Magnesium [Mass/Vol] 1.6 mg/dL Low 1.8-2.[address] [facility] Comment on above: Performed By: #### 1 9123-9 ####[facility] ([id number])[address] [place] [address], [place] [address] MAGNESIUMon 03-10-2024 Magnesium [Mass/Vol] 1.6 mg/dL Low 1.8-2.[address] [facility] Comment on above: Performed By: #### 1 9123-9 ####[facility] ([id number])[address] [place] [address], [place] [address] MAGNESIUMon 03-03-2024 Magnesium [Mass/Vol] 1.8 mg/dL Normal 1.8-2.[address] [facility] Comment on above: Performed By: #### 1 9123-9 ####[facility] ([id number])[address] [place] [address], [place] [address] MAGNESIUMon 02-25-2024 Magnesium [Mass/Vol] 1.9 mg/dL Normal 1.8-2.[address] [facility] Comment on above: Performed By: #### 1 9123-9 ####[facility] ([id number])[address] [place] [address], [place] [address] MAGNESIUMon 02-18-2024 Magnesium [Mass/Vol] 1.9 mg/dL Normal 1.8-2.[address] [facility] Comment on above: Performed By: #### 1 9123-9 ####[facility] ([id number])[address] [place] [address] MAGNESIUMon 02-11-2024 Magnesium [Mass/Vol] 2.0 mg/dL Normal 1.8-2.[address] [facility] Comment on above: Performed By: #### 1 9123-9 ####[facility] ([id number])[address] [place] [address] MAGNESIUMon 02-04-2024 Magnesium [Mass/Vol] 1.8 mg/dL Normal 1.8-2.[address] [facility] Comment on above: Performed By: #### 1 9123-9 ####[facility] ([id number])[address] [place] [address] MAGNESIUMon 01-28-2024 Magnesium [Mass/Vol] 1.8 mg/dL Normal 1.8-2.[address] [facility] Comment on above: Performed By: #### 1 9123-9 ####[facility] ([id number])[address] [place] [address] MAGNESIUMon 01-21-2024 Magnesium [Mass/Vol] 1.7 mg/dL Low 1.8-2.[address] [facility] Comment on above: Performed By: #### 2 823-3, 84801-6 ####[facility] ([id number])[address] [place] [address] POTASSIUMon 01-21-2024 Potassium [Moles/Vol] 3.6 mmol/L Normal 3.5-5.[address] [facility] Comment on above: Performed By: #### 2 823-3, 82537-6 ####[facility] ([id number])[address] [place] [address] MAGNESIUMon 01-14-2024 Magnesium [Mass/Vol] 1.6 mg/dL Low 1.8-2.[address] [facility] Comment on above: Performed By: #### 1 9123-9 ####[facility] ([id number])[address] [place] [address] MAGNESIUMon 01-07-2024 Magnesium [Mass/Vol] 1.7 mg/dL Low 1.8-2.[address] [facility] Comment on above: Performed By: #### 1 9123-9 ####[facility] ([id number])[address] [place] [address], [place] [address] MAGNESIUMon 12-31-2023 Magnesium [Mass/Vol] 1.7 mg/dL Low 1.8-2.[address] [facility] Comment on above: Performed By: #### 1 9123-9 ####[facility] ([id number])[address] [place] [address] MAGNESIUMon 12-24-2023 Magnesium [Mass/Vol] 1.6 mg/dL Low 1.8-2.[address] [facility] Comment on above: Performed By: #### 1 9123-9 ####[facility] ([id number])[address] [place] [address] MAGNESIUMon 12-17-2023 Magnesium [Mass/Vol] 1.5 mg/dL Low 1.8-2.[address] [facility] Comment on above: Performed By: #### 1 9123-9 ####[facility] ([id number])[address] [place] [address] MAGNESIUMon 12-10-2023 Magnesium [Mass/Vol] 1.7 mg/dL Low 1.8-2.[address] [facility] Comment on above: Performed By: #### 1 9123-9 ####[facility] ([id number])[address] [place] [address] MAGNESIUMon 12-03-2023 Magnesium [Mass/Vol] 1.7 mg/dL Low 1.8-2.[address] [facility] Comment on above: Performed By: #### 1 9123-9 ####[facility] ([id number])[address] [place] [address] COMPREHENSIVE METABOLIC PANE [facility] 11-26-2023 Albumin [Mass/Vol] 3.9 g/dL Normal 3.2-5.3 [facility] Comment on above: Performed By: #### 1 9123-9 ####[facility] ([id number])[address] [place] [address]#### [facility], 17149-1 ####[facility] ([id number])[address] [place] [address], [address], [place] [address] ALP [Catalytic activity/Vol] 122 U/L Normal 39-[address] [facility] Comment on above: Performed By: #### 1 9123-9 ####[facility] ([id number])[address] [place] [address]#### JAS, 13751-0 ####[facility] ([id number])[address], [address] [address] ALT [Catalytic activity/Vol] 29 U/L Normal 0-[address] [facility] Comment on above: Performed By: #### 1 9123-9 ####[facility] ([id number])[address] [place] [address]#### JAS, 35036-4 ####[facility] ([id number])[address], [address] [place] [address] Anion gap [Moles/Vol] 9 mmol/L Normal 5-[address] [facility] Comment on above: Performed By: #### 1 9123-9 ####[facility] ([id number])[address] [place] [address]176#### JAS, 39467-6 ####[facility] ([id number])[address], [address] [place] [address]113 AST [Catalytic activity/Vol] 22 U/L Normal 0-[address] [facility] Comment on above: Performed By: #### 1 9123-9 ####[facility] ([id number])[address] [place] [address]11#### CMP, 67355-6 ####[facility] ([id number])[address] [place], [address] [place] [address] Bilirubin [Mass/Vol] 0.4 mg/dL Normal 0.3-1.[address] [facility] Comment on above: Performed By: #### 1 9123-9 ####[facility] ([id number])[address] [place] [address]#### JAS, 69320-3 ####[facility] ([id number])[address], [place] [address] Calcium [Mass/Vol] 9.7 mg/dL Normal 8.5-10.5 [facility] Comment on above: Performed By: #### 1 9123-9 ####[facility] ([id number])[address] [place] [address]135#### JAS, 35031-0 ####[facility] ([id number])[address], [address], [place] [address] Chloride [Moles/Vol] 103 mmol/L Normal 98-[address] [facility] Comment on above: Performed By: #### 1 9123-9 ####[facility] ([id number])[address] [place] [address] [place] [address]#### JAS, 09811-6 ####[facility] ([id number])[address], [place] [address] CO2 [Moles/Vol] 30 mmol/L Normal 22-[address] [facility] Comment on above: Performed By: #### 1 9123-9 ####[facility] ([id number])[address] [place] [address] [place] [address]#### CMP, 58493-4 ####[facility] ([id number])[address], [address], [place] [address] Creatinine [Mass/Vol] 1.53 mg/dL High 0.40-1.[address] [facility] Comment on above: Result Comment: METH OD TRACEABLE TO IDMS STANDARD Performed By: #### 1 9123-9 ####[facility] ([id number])[address] [place] [address]#### JAS, 12357-3 ####[facility] ([id number])[address], [address] [place] [address] GFR/1.73 sq M.predicted among non-blacks MDRD (S/P/Bld) [Vol rate/Area] 34 mL/min/{1.73_m2} Low >[address] [facility] Comment on above: Result Comment: Repo rted eGFR is based on theCKD-EPI 2020 equation that doesnot use a race coefficient. Performed By: #### 1 9123-9 ####[facility] ([id number])[address] [place] [address] 64[address]#### JAS, 88841-3 ####[facility] ([id number])[address], [address] [place] [address]92 Glucose [Mass/Vol] 165 mg/dL High 65-99 [facility] Comment on above: Performed By: #### 1 9123-9 ####[facility] ([id number])[address] [place] [address]#### JAS, 11169-7 ####[facility] ([id number])[address], [address] [place] [address]77 Potassium [Moles/Vol] 4.4 mmol/L Normal 3.5-5.[address] [facility] Comment on above: Performed By: #### 1 9123-9 ####[facility] ([id number])[address] [place] [address]85#### JAS, 60183-3 ####[facility] ([id number])[address], [address] [place] [address]652 Protein [Mass/Vol] 7.1 g/dL Normal 6.0-8.0 [facility] Comment on above: Performed By: #### 1 9123-9 ####[facility] ([id number])[address] [place] [address] 80131#### JAS, 50144-5 ####[facility] ([id number])[address] [place] [address] Sodium [Moles/Vol] 142 mmol/L Normal 134-146 [facility] Comment on above: Performed By: #### 1 9123-9 ####[facility] ([id number])[address] [place] [address] 00453#### JAS, 98577-8 ####[facility] ([id number])[address], [address] [place] [address] Urea nitrogen [Mass/Vol] 43 mg/dL High 5-[address] [facility] Comment on above: Performed By: #### 1 9123-9 ####[facility] ([id number])[address] [place] [address] 50571#### JAS, 56092-5 ####[facility] ([id number])[address], [address] [place] [address] HGB A1C (GLYCO-HGB)on 2023 Glucose [Mass/Vol] 163 mg/dL Normal [facility] Comment on above: Performed By: #### 1 9123-9 ####[facility] ([id number])[address] [place] [address] 70924#### JAS, 05312-2 ####[facility] ([id number])[address] [place] [address] HbA1c (Bld) [Mass fraction] 7.3 % High 4.4-5.[address] [facility] Comment on above: Result Comment: NOTE ADA Guidelines Result HgbA1c Normal : less than 5.7 % Prediabetes : 5.7 % to 6.4 % Diabetes : > 6.4 %Use with caution in patients with abnormal hemoglobin variants asthe half-life of red blood cells and in vivo glycation rates areaffected. Performed By: #### 1 9123-9 ####[facility] ([id number])[address] [place] [address] 00652#### JAS, 76676-8 ####[facility] ([id number])[address] [facility], [address] [place] [address] Lipid 1996 panelon 4 Cholesterol [Mass/Vol] 145 mg/dL Low 150-[address] [facility] Comment on above: Performed By: #### 1 9123-9 ####[facility] ([id number])[address] [place] [address] 43648#### JAS, [id number] ####[facility] ([id number])2130 [facility], [address] [place] [address] Cholesterol in HDL [Mass/Vol] 53 mg/dL Normal >[address] [facility] Comment on above: Result Comment: HDL <40 mg/dL - High RiskHDL > or = 40mg/dL- DesirableHDL >60 mg/dL - Negative Risk Performed By: #### 1 9123-9 ####[facility] ([id number])[address] [place] [address]#### CMP, 97691-9 ####[facility] ([id number])2130 [facility], [address] [place] [address] 22833 Cholesterol in LDL [Mass/Vol] 43 mg/dL Normal <[address] [facility] Comment on above: Result Comment: LDL <100 mg/dL - DesirableLDL >160 mg/dL - High Risk Performed By: #### 1 9123-9 ####[facility] ([id number])[address] [place] [address]#### JAS, 90953-9 ####[facility] ([id number])[address], [address] [address] Cholesterol in VLDL [Mass/Vol] 49 mg/dL High 0-[address] [facility] Comment on above: Performed By: #### 1 9123-9 ####[facility] ([id number])[address] [place] [address]#### JAS, 32176-6 ####[facility] ([id number])[address], [address], [place] [address] CHOLESTEROL:HDL 2.7 Normal 1.0-5.[address] [facility] Comment on above: Performed By: #### 1 9123-9 ####[facility] ([id number])[address] [place] [address]#### JAS, 30191-2 ####[facility] ([id number])[address] [place] [address] Triglyceride [Mass/Vol] 245 mg/dL High 27-[address] [facility] Comment on above: Performed By: #### 1 9123-9 ####[facility] ([id number])[address] [place] [address]#### JAS, 04721-7 ####[facility] ([id number])[address], [place] [address] MAGNESIUMon 11-26-2023 Magnesium [Mass/Vol] 1.8 mg/dL Normal 1.8-2.[address] [facility] Comment on above: Performed By: #### 1 9123-9 ####[facility] ([id number])[address] [facility], [place] [address]#### [facility], 62769-9 ####[facility] ([id number])2130 [facility], [address] [address] MICROALBUMIN - ALBUMIN:CREAT ININE URINE RATIOon 11-26-2023 ALB/CREAT RATIO 352.8 mg/g creat High 0.0-30.0 [facility] Comment on above: Performed By: #### M ALBU #### [facility] ([id number]) [address] [address] Albumin DL <= 20 mg/L (U) [Mass/Vol] 14.6 mg/dL High 0.0-1.9 [facility] Comment on above: Performed By: #### M ALBU #### [facility] ([id number]) [address] [place] [address] URINE CREAT 41.38 mg/dL Normal [facility] Comment on above: Performed By: #### M ALBU #### [facility] ([id number]) [address] [place] [address] Office Visiton 11-19-2023 Follow-up visit [id number] [place] M 1940 F Date Provider Department Center 11/19/2023 DARELL HOUSTON Family History Problem Relation Age of Onset Heart attack Mother Family Status - Relation Status Age at Mother Level of Service:69874 [place] OFFICE/OUTPATIENT ESTABLISHED LOW MDM 20 MIN Normal [facility] Magnesium [Mass/volume] in S asiya or PlasmaOrdered By: Gia Munoz on 11-16-2023 Magnesium [Mass/Vol] 1.4 mg/dL 1.9-2.7 [facility] Multiple labsOrdered By: Mary Ann Carter on 11-16-2023 [facility] PTH INTACTon 01-16-2023 PTH, Intact 115 pg/mL Critically high 15-65 [facility] Comment on above: Performed By: #### M G, URIC, RENAL #### [facility] [address] [place] [address] Dr. Nacho Jeffery FERRITINon 01-15-2023 Ferritin [Mass/Vol] 304.0 ng/mL Critically high 8.0-252.0 [facility] Comment on above: Performed By: #### M G, URIC, RENAL #### [facility] [address] [place] [address] Dr. Nacho Jeffery HEMOGRAM AND PLATELon 2022 Hematocrit (Bld) [Volume fraction] 36.0 % Normal 36.0-48.0 [facility] Comment on above: Performed By: #### M G, URIC, RENAL #### [facility] [address] [place] [address] Dr. Nacho Jeffery Hemoglobin (Bld) [Mass/Vol] 11.6 g/dL Critically low 12.0-16.0 The [facility] Comment on above: Performed By: #### M G, URIC, RENAL #### [facility] [address] [place] [address] Dr. Nacho Jeffery MCH (RBC) [Entitic mass] 29.4 pg Normal 26.7-34.0 The [facility] Comment on above: Performed By: #### M G, URIC, RENAL #### [facility] [address] [place] [address] Dr. Nacho Jeffery MCHC (RBC) [Mass/Vol] 32.2 g/dL Normal 29.9-35.2 The [facility] Comment on above: Performed By: #### M G, URIC, RENAL #### [facility] [address] [place] [address] Dr. Nacho Jeffery MCV (RBC) [Entitic vol] 91.4 fL Normal 81.0-99.0 [facility] Comment on above: Performed By: #### M G, URIC, RENAL #### [facility] [address] [address] [address] Nacho Jeffery PLT 202 103/ul Normal 150-450 [facility] Comment on above: Performed By: #### M G, URIC, RENAL #### [facility] [address] [address] [address] Nacho Jeffery RBC 3.94 106/ul Critically low 4.20-5.40 [facility] Comment on above: Performed By: #### M G, URIC, RENAL #### [facility] [address] [address] [address] Nacho Jeffery WBC 5.9 103/ul Normal 4.0-11.0 [facility] Comment on above: Performed By: #### M G, URIC, RENAL #### [facility] [address] [place] [address] Dr. Nacho Jeffery IRON AND TIBCon 01-15-2023 % SATURATION 23.4 % Normal [facility] Comment on above: Performed By: #### M G, URIC, RENAL #### [facility] [address] [place] [address] Dr. Nacho Jeffery Iron [Mass/Vol] 62.0 ug/dL Normal 50.0-170.0 [facility] Comment on above: Performed By: #### M G, URIC, RENAL #### [facility] [address] [place] [address] Dr. Nacho Jeffery TIBC DIRECT 265.0 ug/dL Normal 250.0-450.0 [facility] Comment on above: Performed By: #### M G, URIC, RENAL #### [facility] [address] [place] [address] Dr. Nacho Jeffery MAGNESIUMon 01-15-2023 Magnesium [Mass/Vol] 1.5 mg/dL Critically low 1.8-2.4 [facility] Comment on above: Performed By: #### M G, URIC, RENAL #### [facility] [address] [place] [address] Dr. Nacho Jeffery RENAL FUNCTION PANELon 01-15 Albumin [Mass/Vol] 3.4 g/dL Normal 3.4-5.0 [facility] Comment on above: Performed By: #### M G, URIC, RENAL #### [facility] [address] [address] [address] Nacoh Jeffery Calcium [Mass/Vol] 9.2 mg/dL Normal 8.5-10.1 [facility] Comment on above: Performed By: #### M G, URIC, RENAL #### [facility] [address] [address] [address] Nacho Jeffery Chloride [Moles/Vol] 104 mmol/L Normal 98-107 [facility] Comment on above: Performed By: #### M G, URIC, RENAL #### [facility] [address] [address] [address] Nacho Jeffery CO2 [Moles/Vol] 30.8 mmol/L Normal 21.0-32.0 [facility] Comment on above: Performed By: #### M G, URIC, RENAL #### [facility] [address] [address] [address] Nacho Jeffery Creatinine [Mass/Vol] 1.52 mg/dL Critically high 0.55-1.02 [facility] Comment on above: Performed By: #### M G, URIC, RENAL #### [facility] [address] [address] [address] Nacho Jeffery EGFR-AF YEMENI 40 mL/min/1.73m2 Critically low >=60 The [facility] Comment on above: Performed By: #### M G, URIC, RENAL #### [facility] [address] [address] [address] Nacho Jeffery EGFR-NON AF YEMENI 33 mL/min/1.73m2 Critically low >=60 [facility] Comment on above: Performed By: #### M G, URIC, RENAL #### [facility] [address] [address] [address] Nacho Jeffery Glucose [Mass/Vol] 172 mg/dL Critically high 74-106 [facility] Comment on above: Performed By: #### M G, URIC, RENAL #### [facility] [address] [address] [address] Nacho Jeffery Phosphate [Mass/Vol] 3.7 mg/dL Normal 2.6-4.7 [facility] Comment on above: Performed By: #### M G, URIC, RENAL #### [facility] [address] [place] [address] Dr. Nacho Jeffery Potassium [Moles/Vol] 4.2 mmol/L Normal 3.5-5.1 [facility] Comment on above: Performed By: #### M G, URIC, RENAL #### [facility] [address] [place] [address] Dr. Nacho Jeffery Sodium [Moles/Vol] 143 mmol/L Normal 136-145 [facility] Comment on above: Performed By: #### M G, URIC, RENAL #### [facility] [address] [place] [address] Dr. Nacho Jeffery Urea nitrogen [Mass/Vol] 56.0 mg/dL Critically high 7.0-18.0 [facility] Comment on above: Performed By: #### M G, URIC, RENAL #### [facility] [address] [place] [address] Dr. Nacho Jeffery UA RANDOM W/MICROSCOPICon BACTERIA NONE SEEN Normal NONE SEEN [facility] Comment on above: Performed By: #### M G, URIC, RENAL #### [facility] [address] [place] [address] Dr. Nacho Jeffery Bilirubin Ql (U) Negative Normal NEGATIVE [facility] Comment on above: Performed By: #### M G, URIC, RENAL #### [facility] [address] [place] [address] Dr. Nacho Jeffery CAST NONE SEEN Normal NONE SEEN [facility] Comment on above: Performed By: #### M G, URIC, RENAL #### [facility] [address] [place] [address] Dr. Nacho Jeffery Clarity (U) CLEAR Normal CLEAR The [facility] Comment on above: Performed By: #### M G, URIC, RENAL #### [facility] [address] [address] [address] Nacho Jeffery Color (U) LT. YELLOW Normal YELLOW The [facility] Comment on above: Performed By: #### M G, URIC, RENAL #### [facility] [address] [address] [address] Nacho Jeffery Crystals LM Nom (Urine sed) NONE SEEN Normal NONE SEEN The [facility] Comment on above: Performed By: #### M G, URIC, RENAL #### [facility] [address] [address] [address] Nacho Jeffery Epithelial cells LM Ql (Urine sed) RARE Normal NONE SEEN /RARE The [facility] Comment on above: Performed By: #### M G, URIC, RENAL #### [facility] [address] [place] [address] Dr. Nacho Jeffery Glucose Ql (U) Negative Normal NEGATIVE [facility] Comment on above: Performed By: #### M G, URIC, RENAL #### [facility] [address] [address] [address] Nacho Jeffery Hemoglobin Ql (U) Negative Normal NEGATIVE The [facility] Comment on above: Performed By: #### M G, URIC, RENAL #### [facility] [address] [place] [address] Dr. Nacho Jeffery Ketones Ql (U) Negative Normal NEGATIVE The [facility] Comment on above: Performed By: #### M G, URIC, RENAL #### [facility] [address] [address] [address] Nacho Jeffery LEUKOCYTES TRACE Abnormal NEGATIVE The [facility] Comment on above: Performed By: #### M G, URIC, RENAL #### [facility] [address] [address] [address] Nacho Jeffery MUCOUS NONE SEEN Normal NONE SEEN [facility] Comment on above: Performed By: #### M G, URIC, RENAL #### [facility] [address] [address] [address] Nacho Jeffery Nitrite Ql (U) Negative Normal NEGATIVE The [facility] Comment on above: Performed By: #### M G, URIC, RENAL #### [facility] [address] [address] [address] Nacho Jeffery pH (U) 5.5 [pH] Normal 5-9 [facility] Comment on above: Performed By: #### M G, URIC, RENAL #### [facility] [address] [address] [address] Nacho Jeffery RBC 0-2 Normal 0-2 The [facility] Comment on above: Performed By: #### M G, URIC, RENAL #### [facility] [address] [address] [address] Nacho Jeffery SPEC GRAVITY 1.015 Normal 1.005-<=1.025 [facility] Comment on above: Performed By: #### M G, URIC, RENAL #### [facility] [address] [place] [address] Dr. Nacho Jeffery UA PROTEIN Negative Normal NEGATIVE/ TRACE The [facility] Comment on above: Performed By: #### M G, URIC, RENAL #### [facility] [address] [address] [address] Nacho Jeffery Urobilinogen Qn (U) 0.2 {Zuleyka'U}/dL Normal 0.2 - 1. 0 [facility] Comment on above: Performed By: #### M G, URIC, RENAL #### [facility] [address] [address] [address] Nacho Jeffery WBC 2-5 Abnormal NONE SEEN The [facility] Comment on above: Performed By: #### M G, URIC, RENAL #### [facility] [address] [address] [address] Nacho Jeffery URIC ACID SERUMon 01-15-2023 Urate [Mass/Vol] 7.0 mg/dL Critically high 2.6-6.0 [facility] Comment on above: Performed By: #### M G, URIC, RENAL #### [facility] [address] [place] [address] Dr. Nacho Jeffery URINE T PROTEIN CREAT RATIOo n 03-06-2023 Protein (U) [Mass/Vol] 13.4 mg/dL Critically high <=12.0 [facility] Comment on above: Performed By: #### U RTPCR #### [facility] [address] [place] [address] Dr. Nacho Jeffery UR PROT CREAT RAT 0.24 Normal [facility] Comment on above: Performed By: #### U RTPCR #### [facility] [address] [place] [address] Dr. Nacho Jeffery URINE CREAT 56.90 mg/dL Normal 20.00-300.00 [facility] Comment on above: Performed By: #### U RTPCR #### [facility] [address] [place] [address] Dr. Nacho Jeffery VITAMIN D 25 OHon 01-15-2023 VIT D 25-OH 52.6 ng/mL Normal [facility] Comment on above: Performed By: #### M G, URIC, RENAL #### [facility] [address] [place] [address] Dr. Nacho Jeffery VIT D RANGES SEE BELOW Normal [facility] Comment on above: Result Comment: <20 ng/mL Vit D deficient 20 - <30 ng/mL Vit D insufficient 30 - 100 ng/mL Vit D sufficient >100 ng/mL Potential Toxicity Performed By: #### M G, URIC, RENAL #### [facility] [address] [place] [address] Dr. Nacho Jeffery Telemedicineon 12-06-2022 Telemedicine [id number] Adore Wolff 1940 F Date Provider Department Center 12/06/2022 [facility] Family History Problem Relation Age of Onset Heart attack Mother Family Status - Relation Status Age at Mother Level of Service:79263 [place] OFFICE/OUTPATIENT EST PT MAY NOT REQ PHYS/QHP Normal [facility] GLYCOHEMOGLOBIN A1Con 2021 ADA RECOMMENDATION SEE BELOW Normal [facility] Comment on above: Result Comment: ADA RECOMMENDED LIMIT 4.0 - 6.0 ADA THERAPEUTIC TARGET < 7.0 ACTION SUGGESTED > 7.0 Performed By: #### A 1C #### [facility] [address] [address] [address] Nacho Jeffery Glucose [Mass/Vol] 143 mg/dL Normal [facility] Comment on above: Performed By: #### A 1C #### [facility] [address] [address] [address] Nacho Jeffery HbA1c (Bld) [Mass fraction] 6.6 % Critically high 4.5-6.2 [facility] Comment on above: Performed By: #### A 1C #### [facility] [address] [place] [address] Dr. Nacho Jeffery LIPID PROFILEon 11-09-2022 CHOL-HDL RATIO NORM SEE BELOW Normal [facility] Comment on above: Result Comment: 3.3 - 4.4 LOW RISK 4.4 - 7.1 AVERAGE RISK 7.1 - 11.0 MODERATE RISK >11.0 HIGH RISK Performed By: #### M G, URIC, RENAL #### [facility] [address] [place] [address] Dr. Nacho Jeffery Cholesterol [Mass/Vol] 141 mg/dL Normal <=200 [facility] Comment on above: Performed By: #### M G, URIC, RENAL #### [facility] [address] [place] [address] Dr. Nacho Jeffery Cholesterol in HDL [Mass/Vol] 59 mg/dL Normal 40-60 [facility] Comment on above: Performed By: #### M G, URIC, RENAL #### [facility] [address] [address] [address] Nacho Jeffery Cholesterol in LDL [Mass/Vol] 46.2 mg/dL Normal [facility] Comment on above: Performed By: #### M G, URIC, RENAL #### [facility] [address] [address] [address] Nacho Jeffery Cholesterol.total/C holesterol in HDL [Mass ratio] 2.4 {ratio} Normal [facility] Comment on above: Performed By: #### M G, URIC, RENAL #### [facility] [address] [address] [address] Nacho Jeffery HDL NORMAL > or = 60 mg/dl - LO W CARDIOVASCULAR RISK <40 mg/dl - HIGH CARDIOVASCULAR RISK Normal [facility] Comment on above: Performed By: #### M G, URIC, RENAL #### [facility] [address] [address] [address] Nacho Jeffery LDL CALC NORMAL SEE BELOW Normal [facility] Comment on above: Result Comment: <100 mg/dl OPTIMAL 100 - 129 mg/dl NEAR OR ABOVE OPTIMAL 130 - 159 mg/dl BORDERLINE HIGH 160 - 189 mg/dl HIGH >190 mg/dl VERY HIGH Performed By: #### M G, URIC, RENAL #### [facility] [address] [address] [address] Nacho Jeffery Triglyceride [Mass/Vol] 179 mg/dL Critically high <=150 [facility] Comment on above: Performed By: #### M G, URIC, RENAL #### [facility] [address] [address] [address] Nacho Jeffery VLDL CALC 35.8 mg/dL Normal [facility] Comment on above: Performed By: #### M G, URIC, RENAL #### [facility] [address] [address] [address] Nacho Jeffery PROF 14(COMP METB)on 11-09-2 022 Albumin [Mass/Vol] 3.2 g/dL Critically low 3.4-5.0 [facility] Comment on above: Performed By: #### M G, URIC, RENAL #### [facility] [address] [address] [address] Nacho Jeffery Albumin/Globulin [Mass ratio] 0.8 {ratio} Normal [facility] Comment on above: Performed By: #### M G, URIC, RENAL #### [facility] [address] [address] [address] Nacho Jeffery ALP [Catalytic activity/Vol] 109 U/L Normal 46-116 [facility] Comment on above: Performed By: #### M G, URIC, RENAL #### [facility] [address] [address] [address] Nacho Jeffery ALT [Catalytic activity/Vol] 38 U/L Normal 14-59 [facility] Comment on above: Performed By: #### M G, URIC, RENAL #### [facility] [address] [address] [address] Nacho Jeffery Anion gap [Moles/Vol] 13.7 mmol/L Normal [facility] Comment on above: Performed By: #### M G, URIC, RENAL #### [facility] [address] [address] [address] Nacho Jeffery AST [Catalytic activity/Vol] 27 U/L Normal 15-37 [facility] Comment on above: Performed By: #### M G, URIC, RENAL #### [facility] [address] [place] [address] Dr. Nacho Jeffery Bilirubin [Mass/Vol] 0.4 mg/dL Normal 0.2-1.0 [facility] Comment on above: Performed By: #### M G, URIC, RENAL #### [facility] [address] [place] [address] Dr. Nacho Jeffery Calcium [Mass/Vol] 9.2 mg/dL Normal 8.5-10.1 [facility] Comment on above: Performed By: #### M G, URIC, RENAL #### [facility] [address] [place] [address] Dr. Nacho Jeffery Chloride [Moles/Vol] 105 mmol/L Normal 98-107 The [facility] Comment on above: Performed By: #### M G, URIC, RENAL #### [facility] [address] [place] [address] Dr. Nacho Jeffery CO2 [Moles/Vol] 29.5 mmol/L Normal 21.0-32.0 [facility] Comment on above: Performed By: #### M G, URIC, RENAL #### [facility] [address] [place] [address] Dr. Nacho Jeffery Creatinine [Mass/Vol] 1.62 mg/dL Critically high 0.55-1.02 [facility] Comment on above: Performed By: #### M G, URIC, RENAL #### [facility] [address] [place] [address] Dr. Nacho Jeffery EGFR-AF YEMENI 37 mL/min/1.73m2 Critically low >=60 The [facility] Comment on above: Performed By: #### M G, URIC, RENAL #### [facility] [address] [address] [address] Nacho Jeffery EGFR-NON AF YEMENI 31 mL/min/1.73m2 Critically low >=60 The [facility] Comment on above: Performed By: #### M Jamarcus, URIC, RENAL #### [facility] [address] [place] [address] Dr. Nacho Jeffery Globulin (S) [Mass/Vol] 3.8 g/dL Normal The [facility] Comment on above: Performed By: #### M Jamarcus, URIC, RENAL #### [facility] [address] [place] [address] Dr. Nacho Jeffery Glucose [Mass/Vol] 102 mg/dL Normal 74-106 [facility] Comment on above: Performed By: #### M Jamarcus, URIC, RENAL #### [facility] [address] [place] [address] Dr. Nacho Jeffery Potassium [Moles/Vol] 4.2 mmol/L Normal 3.5-5.1 [facility] Comment on above: Performed By: #### M Jamarcus, URIC, RENAL #### [facility] [address] [place] [address] Dr. Nacho Jeffery Protein [Mass/Vol] 7.0 g/dL Normal 6.4-8.2 [facility] Comment on above: Performed By: #### M G, URIC, RENAL #### [facility] [address] [place] [address] Dr. Nacho Jeffery Sodium [Moles/Vol] 144 mmol/L Normal 136-145 [facility] Comment on above: Performed By: #### M G, URIC, RENAL #### [facility] [address] [place] [address] Dr. Nacho Jeffery Urea nitrogen [Mass/Vol] 45.0 mg/dL Critically high 7.0-18.0 The [facility] Comment on above: Performed By: #### M G, URIC, RENAL #### [facility] [address] [address] [address] Nacho Jeffery Urea nitrogen/Creatinine [Mass ratio] 27.8 mg/mg Normal [facility] Comment on above: Performed By: #### M G, URIC, RENAL #### [facility] [address] [address] [address] Nacho Jeffery OSMOLALITY URINEon 2 Osmolality, Urine 466 mOsmol/kg Normal [facility] Comment on above: Result Comment: 24 h r : 300 - 900 Random: 50 - 1400 After 12hr fluid restriction: >850 Performed By: #### M G, URIC, RENAL #### [facility] [address] [address] [address] Nacho Jeffery PTH INTACTon 07-13-2022 PTH, Intact 84 pg/mL Critically high 15-65 [facility] Comment on above: Performed By: #### P THINT #### [facility] [address] [address] [address] Nacho Jeffery VIT D 25-OH LABCORPon 2021 Vitamin D, 25-Hydroxy 34.7 ng/mL Normal 30.0-100.0 [facility] Comment on above: Result Comment: Radha min D deficiency has been defined by the [place] [employer] and an Endocrine Society practice guideline as a level of serum 25-OH vitamin D less than 20 ng/mL (1,2). The Endocrine Society went on to further define vitamin D insufficiency as a level between 21 and 29 ng/mL (2). 1. IOM ([place] [employer]). 2010. Dietary reference intakes for calcium and D. [place]: The National Academies Press. 2. Magdiel MF, Kb NC, Evens PEPPER, et al. Evaluation, treatment, and prevention of vitamin D deficiency: an Endocrine Society clinical practice guideline. JCEM. 2010; 96(7):1911-30. Performed By: #### M G, URIC, RENAL #### [facility] [address] [address] [address] Nacho Jeffery HEMOGRAM AND PLATELon 2021 Hematocrit (Bld) [Volume fraction] 35.5 % Critically low 36.0-48.0 The [facility] Comment on above: Performed By: #### M G, URIC, RENAL #### [facility] [address] [place] [address] Dr. Nacho Jeffery Hemoglobin (Bld) [Mass/Vol] 11.5 g/dL Critically low 12.0-16.0 The [facility] Comment on above: Performed By: #### M G, URIC, RENAL #### [facility] [address] [place] [address] Dr. Nacho Jeffery MCH (RBC) [Entitic mass] 30.6 pg Normal 26.7-34.0 The [facility] Comment on above: Performed By: #### M G, URIC, RENAL #### [facility] [address] [place] [address] Dr. Nacho Jeffery MCHC (RBC) [Mass/Vol] 32.4 g/dL Normal 29.9-35.2 The [facility] Comment on above: Performed By: #### M G, URIC, RENAL #### [facility] [address] [place] [address] Dr. Nacho Jeffery MCV (RBC) [Entitic vol] 94.4 fL Normal 81.0-99.0 The [facility] Comment on above: Performed By: #### M G, URIC, RENAL #### [facility] [address] [place] [address] Dr. Nacho Jeffery PLT 192 103/ul Normal 150-450 The [facility] Comment on above: Performed By: #### M G, URIC, RENAL #### [facility] [address] [place] [address] Dr. Nacho Jeffery RBC 3.76 106/ul Critically low 4.20-5.40 [facility] Comment on above: Performed By: #### M G, URIC, RENAL #### [facility] [address] [place] [address] Dr. Nacho Jeffery WBC 6.1 103/ul Normal 4.0-11.0 The [facility] Comment on above: Performed By: #### M G, URIC, RENAL #### [facility] [address] [place] [address] Dr. Nacho Jeffery MAGNESIUMon 07-12-2022 Magnesium [Mass/Vol] 1.3 mg/dL Critically low 1.8-2.4 [facility] Comment on above: Performed By: #### U CHRISTOFER, MG, RENAL #### [facility] [address] [place] [address] Dr. Nacho Jeffery RENAL FUNCTION PANELon 07-12 Albumin [Mass/Vol] 3.3 g/dL Critically low 3.4-5.0 [facility] Comment on above: Performed By: #### U CHRISTOFER, MG, RENAL #### [facility] [address] [place] [address] Dr. Nacho Jeffery Calcium [Mass/Vol] 9.1 mg/dL Normal 8.5-10.1 [facility] Comment on above: Performed By: #### U CHRISTOFER, MG, RENAL #### [facility] [address] [place] [address] Dr. Nacho Jeffery Chloride [Moles/Vol] 104 mmol/L Normal 98-107 [facility] Comment on above: Performed By: #### U CHRISTOFER, MG, RENAL #### [facility] [address] [place] [address] Dr. Nacho Jeffery CO2 [Moles/Vol] 31.7 mmol/L Normal 21.0-32.0 [facility] Comment on above: Performed By: #### U CHRISTOFER, MG, RENAL #### [facility] [address] [place] [address] Dr. Nacho Jeffery Creatinine [Mass/Vol] 1.52 mg/dL Critically high 0.55-1.02 [facility] Comment on above: Performed By: #### U CHRISTOFER, MG, RENAL #### [facility] [address] [place] [address] Dr. Nacho Jeffery EGFR-AF YEMENI 40 mL/min/1.73m2 Critically low >=60 [facility] Comment on above: Performed By: #### U CHRISTOFER, MG, RENAL #### [facility] [address] [place] [address] Dr. Nacho Jeffery EGFR-NON AF YEMENI 33 mL/min/1.73m2 Critically low >=60 [facility] Comment on above: Performed By: #### U CHRISTOFER, MG, RENAL #### [facility] [address] [place] [address] Dr. Nacho Jeffery Glucose [Mass/Vol] 221 mg/dL Critically high 74-106 [facility] Comment on above: Performed By: #### U CHRISTOFER, MG, RENAL #### [facility] [address] [place] [address] Dr. Nacho Jeffery Phosphate [Mass/Vol] 3.8 mg/dL Normal 2.6-4.7 [facility] Comment on above: Performed By: #### U CHRISTOFER, MG, RENAL #### [facility] [address] [place] [address] Dr. Nacho Jeffery Potassium [Moles/Vol] 4.1 mmol/L Normal 3.5-5.1 [facility] Comment on above: Performed By: #### U CHRISTOFER, MG, RENAL #### [facility] [address] [place] [address] Dr. Nacho Jeffery Sodium [Moles/Vol] 143 mmol/L Normal 136-145 [facility] Comment on above: Performed By: #### U CHRISTOFER, MG, RENAL #### [facility] [address] [place] [address] Dr. Nacho Jeffery Urea nitrogen [Mass/Vol] 45.0 mg/dL Critically high 7.0-18.0 [facility] Comment on above: Performed By: #### U CHRISTOFER, MG, RENAL #### [facility] [address] [place] [address] Dr. Nacho Jeffery UA RANDOM W/MICROSCOPICon BACTERIA NONE SEEN Normal NONE SEEN The [facility] Comment on above: Performed By: #### M G, URIC, RENAL #### [facility] [address] [place] [address] Dr. Nacho Jeffery Bilirubin Ql (U) Negative Normal NEGATIVE [facility] Comment on above: Performed By: #### M G, URIC, RENAL #### [facility] [address] [address] [address] Nacho Jeffery CAST NONE SEEN Normal NONE SEEN The [facility] Comment on above: Performed By: #### M G, URIC, RENAL #### [facility] [address] [place] [address] Dr. Nacho Jeffery Clarity (U) CLEAR Normal CLEAR The [facility] Comment on above: Performed By: #### M G, URIC, RENAL #### [facility] [address] [address] [address] Nacho Jeffery Color (U) LT. YELLOW Normal YELLOW The [facility] Comment on above: Performed By: #### M G, URIC, RENAL #### [facility] [address] [place] [address] Dr. Nacho Jeffery Crystals LM Nom (Urine sed) NONE SEEN Normal NONE SEEN The [facility] Comment on above: Performed By: #### M G, URIC, RENAL #### [facility] [address] [place] [address] Dr. Nacho Jeffery Epithelial cells LM Ql (Urine sed) FEW Abnormal NONE SEEN /RARE The [facility] Comment on above: Performed By: #### M G, URIC, RENAL #### [facility] [address] [place] [address] Dr. Nacho Jeffery Glucose Ql (U) Negative Normal NEGATIVE The [facility] Comment on above: Performed By: #### M G, URIC, RENAL #### [facility] [address] [place] [address] Dr. Nacho Jeffery Hemoglobin Ql (U) Negative Normal NEGATIVE [facility] Comment on above: Performed By: #### M G, URIC, RENAL #### [facility] [address] [place] [address] Dr. Nacho Jeffery Ketones Ql (U) Negative Normal NEGATIVE [facility] Comment on above: Performed By: #### M G, URIC, RENAL #### [facility] [address] [place] [address] Dr. Nacho Jeffery LEUKOCYTES TRACE Abnormal NEGATIVE The [facility] Comment on above: Performed By: #### M G, URIC, RENAL #### [facility] [address] [address] [address] Nacho Jeffery MUCOUS NONE SEEN Normal NONE SEEN The [facility] Comment on above: Performed By: #### M G, URIC, RENAL #### [facility] [address] [place] [address] Dr. Nacho Jeffery Nitrite Ql (U) Negative Normal NEGATIVE The [facility] Comment on above: Performed By: #### M G, URIC, RENAL #### [facility] [address] [place] [address] Dr. Nacho Jeffery pH (U) 6.0 [pH] Normal 5-9 The [facility] Comment on above: Performed By: #### M G, URIC, RENAL #### [facility] [address] [place] [address] Dr. Nacho Jeffery RBC NONE SEEN Abnormal 0-2 The [facility] Comment on above: Performed By: #### M G, URIC, RENAL #### [facility] [address] [place] [address] Dr. Nacho Jeffery SPEC GRAVITY 1.015 Normal 1.005-<=1.025 [facility] Comment on above: Performed By: #### M G, URIC, RENAL #### [facility] [address] [place] [address] Dr. Nacho Jeffery UA PROTEIN Negative Normal NEGATIVE/ TRACE The [facility] Comment on above: Performed By: #### M G, URIC, RENAL #### [facility] [address] [place] [address] Dr. Nacho Jeffery Urobilinogen Qn (U) 0.2 {Zuleyka'U}/dL Normal 0.2 - 1. 0 The [facility] Comment on above: Performed By: #### M G, URIC, RENAL #### [facility] [address] [place] [address] Dr. Nacho Jeffery WBC 2-5 Abnormal NONE SEEN The [facility] Comment on above: Performed By: #### M G, URIC, RENAL #### [facility] [address] [place] [address] Dr. Nacho Jeffery URIC ACID SERUMon 07-12-2022 Urate [Mass/Vol] 7.9 mg/dL Critically high 2.6-6.0 [facility] Comment on above: Performed By: #### U CHRISTOFER, MG, RENAL #### [facility] [address] [address] [address] Nacho Jeffery URINE T PROTEIN CREAT RATIOo n 07-12-2022 Protein (U) [Mass/Vol] 17.5 mg/dL Critically high <=12.0 [facility] Comment on above: Performed By: #### M G, URIC, RENAL #### [facility] [address] [address] [address] Nacho Jeffery UR PROT CREAT RAT 0.29 Normal [facility] Comment on above: Performed By: #### M G, URIC, RENAL #### [facility] [address] [address] [address] Nacho Jeffery URINE CREAT 60.37 mg/dL Normal 20.00-300.00 [facility] Comment on above: Performed By: #### M G, URIC, RENAL #### [facility] [address] [address] [address] Nacho Jeffery ALBUMIN, RANDOM URINE W/CREA TININEon 05-11-2022 ALBUMIN, URINE 0.5 mg/dL Normal See Note: [facility] Comment on above: Result Comment: Refe rence Range: Reference Range Not established Performed By: #### 4 96, 7600, 6517, 63322 #### [facility] [address], [address] [place] [id number] Slate Worker: Mauricio Kern MD ALBUMIN/CREATININE RATIO, RANDOM URINE [...] Performed By: #### 4 96, 7600, 6517, 57092 #### [facility] of [address], [address] [place] [address] Slate Worker: Mauricio Kern MD Creatinine (U) [Mass/Vol] 74 mg/dL Normal 20-275 [facility] Comment on above: Performed By: #### 4 96, 7600, 6517, 68605 #### [facility] of [address], [address] [place] [address] Slate Worker: Mauricio Kern MD BASIC METABOLIC PANELon 04-14 GLUCOSE Normal [facility] Comment on above: Result Comment: TEST NOT PERFORMED No specimen received. Performed By: #### 4 96, 7600, 6517, 20392 #### [facility] of [address], [address] [place] [address] Slate Worker: Mauricio Kern MD HEMOGLOBIN A1con 05-11-2022 HEMOGLOBIN A1c Normal [facility] Comment on above: Result Comment: TEST NOT PERFORMED No specimen received. Performed By: #### 4 96, 7600, 6517, 24848 #### [facility] of [address], [address] [place] [address] Slate Worker: Mauricio Kern MD LIPID PANEL, STANDARDon 04-14 CHOL/HDLC RATIO Normal [facility] Comment on above: Result Comment: TEST NOT PERFORMED No specimen received. Performed By: #### 4 96, 7600, 6517, 18267 #### [facility] of [address], [address] [place] [address] Slate Worker: Mauricio Kern MD CHOLESTEROL, TOTAL Normal [facility] Comment on above: Result Comment: TEST NOT PERFORMED No specimen received. Performed By: #### 4 96, 7600, 6517, 77286 #### [facility] of [address], [address] [place] [address] Slate Worker: Mauricio Kern MD HDL CHOLESTEROL Normal [facility] Comment on above: Result Comment: TEST NOT PERFORMED No specimen received. Performed By: #### 4 96, 7600, 6517, 88618 #### [facility] of [address], [address] [place] [address] Slate Worker: Mauricio Kren MD LDL-CHOLESTEROL Normal [facility] Comment on above: Result Comment: TEST NOT PERFORMED No specimen received. Performed By: #### 4 96, 7600, 6517, 75491 #### [facility] [address], [address] [place] [address] Slate Worker: Mauricio Kern MD NON HDL CHOLESTEROL Normal [facility] Comment on above: Result Comment: TEST NOT PERFORMED No specimen received. Performed By: #### 4 96, 7600, 6517, 63892 #### [facility] [address], [address] [place] [address] Slate Worker: Mauricio Kern MD TRIGLYCERIDES Normal [facility] Comment on above: Result Comment: TEST NOT PERFORMED No specimen received. Performed By: #### 4 96, 7600, 6517, 95719 #### [facility] [address], [address] [place] [address] Slate Worker: Mauricio Kern MD BASIC METABOLIC PANELon 06-2 Calcium [Mass/Vol] 9.1 mg/dL Normal 8.6-10.4 [facility] Comment on above: Performed By: #### 1 0165, 496, 6690 #### [facility] [place] [address] Slate Worker: Mauricio Kern MD Chloride [Moles/Vol] 105 mmol/L Normal 98-110 [facility] Comment on above: Performed By: #### 1 0165, 496, 7600 #### [facility] [address], [address] [place] [address] Slate Worker: Mauricio Kern MD CO2 [Moles/Vol] 25 mmol/L Normal 20-32 [facility] Comment on above: Performed By: #### 1 0165, 496, 7600 #### [facility] [address], [address] [place] [address] Slate Worker: Mauricio Kern MD Creatinine [Mass/Vol] 1.73 mg/dL High 0.60-0.93 [facility] Comment on above: Result Comment: For patients >49 years of age, the reference limit for Creatinine is approximately 13% higher for people identified as -[place]. Performed By: #### 1 0165, 496, 7600 #### [facility] [address], [address] [place] [address] Slate Worker: Mauricio Kern MD eGFR NON-AFR. YEMENI 28 mL/min/1.73m2 Low > OR = 60 [facility] Comment on above: Performed By: #### 1 0165, 49, 7600 #### [facility] [place] [address] Slate Worker: Mauricio Kern MD GFR/1.73 sq M.predicted among blacks MDRD (S/P/Bld) [Vol rate/Area] 32 mL/min/{1.73_m2} Low > OR = 60 [facility] Comment on above: Performed By: #### 1 016, 496, 7600 #### [facility] [place] [address] Slate Worker: Mauricio Kern MD Glucose [Mass/Vol] 137 mg/dL High 65-99 [facility] Comment on above: Result Comment: Fasting reference interval For someone without known diabetes, a glucose value >125 mg/dL indicates that they may have diabetes and this should be confirmed with a follow-up test. Performed By: #### 1 0165, 496, 7600 #### [facility] [address], [address] [place] [address] Slate Worker: Mauricio Kern MD Potassium [Moles/Vol] 4.6 mmol/L Normal 3.5-5.3 [facility] Comment on above: Performed By: #### 1 0165, 496, 7600 #### [facility] [place] [address] Slate Worker: Mauricio Kern MD Sodium [Moles/Vol] 142 mmol/L Normal 135-146 [facility] Comment on above: Performed By: #### 1 0165, 496, 7600 #### [facility] [address], [address] [place] [address] Slate Worker: Mauricio Kern MD Urea nitrogen [Mass/Vol] 65 mg/dL High 7-25 [facility] Comment on above: Performed By: #### 1 0165, 496, 7600 #### [facility] [address], [address] [place] [address] Slate Worker: Mauricio Kern MD Urea nitrogen/Creatinine [Mass ratio] 38 mg/mg High 6- [facility] Comment on above: Performed By: #### 1 0165, 496, 7600 #### [facility] [address], [address] [place] [address] Slate Worker: Mauricio Kern MD HEMOGLOBIN A1con 05-04-2022 HEMOGLOBIN [...] 1 0165, 496, 7600 #### [facility] [address], [address] [place] [address] Slate Worker: Mauricio Kern MD LIPID PANEL, STANDARDon 04-13 Cholesterol [Mass/Vol] 163 mg/dL Normal <200 [facility] Comment on above: Order Comment: FASTI NG:YES PATIENT UNABLE TO VOID; ADVISED TO RETURN FOR COLLECTION. FASTING: YES Performed By: #### 1 0165, 496, 7600 #### [facility] [address], [address] [place] [address] Slate Worker: Mauricio Kern MD Cholesterol in HDL [Mass/Vol] 51 mg/dL Normal > OR = 50 [facility] Comment on above: Order Comment: FASTI NG:YES PATIENT UNABLE TO VOID; ADVISED TO RETURN FOR COLLECTION. FASTING: YES Performed By: #### 1 0165, 496, 7600 #### [facility] [address], [address] [place] [address] Slate Worker: Mauricio Kern MD Cholesterol in LDL [Mass/Vol] [...] LDL-C. Sean BREAUX et al. SHRUTHI. 2013;310(19): 4806-2942 (http://education.myTomorrows/faq/MYZ766) Performed By: #### 1 0165, 499, 4880 #### [facility] [address], [address] [place] [address] Slate Worker: Mauricio Kern MD Cholesterol.total/C holesterol in HDL [Mass ratio] 3.2 {ratio} Normal <5.0 [facility] Comment on above: Order Comment: FASTI NG:YES PATIENT UNABLE TO VOID; ADVISED TO RETURN FOR COLLECTION. FASTING: YES Performed By: #### 1 0165, 496, 7600 #### [facility] [address], [address] [place], [place] [id number] Slate Worker: Mauricio Kern MD NON HDL CHOLESTEROL 112 [...] 1 0165, 496, 7600 #### [facility] [address], [address] Slate Worker: Mauricio Kern MD Triglyceride [Mass/Vol] 181 mg/dL High <150 [facility] Comment on above: Order Comment: FASTI NG:YES PATIENT UNABLE TO VOID; ADVISED TO RETURN FOR COLLECTION. FASTING: YES Performed By: #### 1 0165, 496, 7600 #### [facility] [address], [address] [place] [address] Slate Worker: Mauricio Kern MD PTH INTACTon 03-31-2022 PTH, Intact 111 pg/mL Critically high 15-65 [facility] Comment on above: Performed By: #### M G, URIC, RENAL #### [facility] [address] [place] [address] Dr. Nacho Jeffery FERRITINon 03-30-2022 Ferritin [Mass/Vol] 479.0 ng/mL Critically high 8.0-252.0 [facility] Comment on above: Performed By: #### M G, URIC, RENAL #### [facility] [address] [place] [address] Dr. Nacho Jeffery HEMOGRAM AND PLATELon 2021 Hematocrit (Bld) [Volume fraction] 38.1 % Normal 36.0-48.0 [facility] Comment on above: Performed By: #### M G, URIC, RENAL #### [facility] [address] [address] Dr. Nacho Jeffery Hemoglobin (Bld) [Mass/Vol] 12.9 g/dL Normal 12.0-16.0 The [facility] Comment on above: Performed By: #### M G, URIC, RENAL #### [facility] Laboratory [address] [place] [address] Dr. Nacho Jeffery MCH (RBC) [Entitic mass] 32.8 pg Normal 26.7-34.0 [facility] Comment on above: Performed By: #### M G, URIC, RENAL #### [facility] Laboratory [address] [address] [address] Nacho Jeffery MCHC (RBC) [Mass/Vol] 33.9 g/dL Normal 29.9-35.2 The [facility] Comment on above: Performed By: #### M G, URIC, RENAL #### [facility] [address] [address] [address] Nacho Jeffery MCV (RBC) [Entitic vol] 96.9 fL Normal 81.0-99.0 [facility] Comment on above: Performed By: #### M G, URIC, RENAL #### [facility] [address] [address] [address] Nacho Jeffery PLT 191 103/ul Normal 150-450 [facility] Comment on above: Performed By: #### M G, URIC, RENAL #### [facility] [address] [place] [address] Dr. Nacho Jeffery RBC 3.93 106/ul Critically low 4.20-5.40 [facility] Comment on above: Performed By: #### M G, URIC, RENAL #### [facility] [address] [address] [address] Nacho Jeffery WBC 7.2 103/ul Normal 4.0-11.0 [facility] Comment on above: Performed By: #### M G, URIC, RENAL #### [facility] [address] [place] [address] Dr. Nacho Jeffery IRON AND TIBCon 03-30-2022 % SATURATION 21.6 % Normal [facility] Comment on above: Performed By: #### M G, URIC, RENAL #### [facility] [address] [address] [address] Nacho Jeffery Iron [Mass/Vol] 63.0 ug/dL Normal 50.0-170.0 [facility] Comment on above: Performed By: #### M G, URIC, RENAL #### [facility] [address] [address] [address] Nacho Jeffery TIBC DIRECT 292.0 ug/dL Normal 250.0-450.0 [facility] Comment on above: Performed By: #### M G, URIC, RENAL #### [facility] [address] [address] [address] Nacho Jeffery MAGNESIUMon 03-30-2022 Magnesium [Mass/Vol] 1.7 mg/dL Critically low 1.8-2.4 [facility] Comment on above: Performed By: #### M G, URIC, RENAL #### [facility] [address] [address] [address] Nacho Jeffery RENAL FUNCTION PANELon 03-30 Albumin [Mass/Vol] 3.4 g/dL Normal 3.4-5.0 [facility] Comment on above: Performed By: #### M G, URIC, RENAL #### [facility] [address] [place] [address] Dr. Nacho Jeffery Calcium [Mass/Vol] 9.3 mg/dL Normal 8.5-10.1 [facility] Comment on above: Performed By: #### M G, URIC, RENAL #### [facility] [address] [place] [address] Dr. Nacho Jeffery Chloride [Moles/Vol] 102 mmol/L Normal 98-107 [facility] Comment on above: Performed By: #### M G, URIC, RENAL #### [facility] [address] [place] [address] Dr. Nacho Jeffery CO2 [Moles/Vol] 31.7 mmol/L Normal 21.0-32.0 The [facility] Comment on above: Performed By: #### M G, URIC, RENAL #### [facility] [address] [place] [address] Dr. Nacho Jeffery Creatinine [Mass/Vol] 2.05 mg/dL Critically high 0.55-1.02 [facility] Comment on above: Performed By: #### M G, URIC, RENAL #### [facility] [address] [place] [address] Dr. Nacho Jeffery EGFR-AF YEMENI 28 mL/min/1.73m2 Critically low >=60 [facility] Comment on above: Performed By: #### M G, URIC, RENAL #### [facility] [address] [address] [address] Nacho Jeffery EGFR-NON AF YEMENI 23 mL/min/1.73m2 Critically low >=60 [facility] Comment on above: Performed By: #### M G, URIC, RENAL #### [facility] [address] [address] [address] Nacho Jeffery Glucose [Mass/Vol] 194 mg/dL Critically high 74-106 [facility] Comment on above: Performed By: #### M G, URIC, RENAL #### [facility] [address] [address] [address] Nacho Jeffery Phosphate [Mass/Vol] 3.2 mg/dL Normal 2.6-4.7 [facility] Comment on above: Performed By: #### M G, URIC, RENAL #### [facility] [address] [address] [address] Nacho Jeffery Potassium [Moles/Vol] 4.6 mmol/L Normal 3.5-5.1 [facility] Comment on above: Performed By: #### M G, URIC, RENAL #### [facility] [address] [address] [address] Nacho Jeffery Sodium [Moles/Vol] 141 mmol/L Normal 136-145 [facility] Comment on above: Performed By: #### M G, URIC, RENAL #### [facility] [address] [address] [address] Nacho Jeffery Urea nitrogen [Mass/Vol] 64.0 mg/dL Critically high 7.0-18.0 [facility] Comment on above: Performed By: #### M G, URIC, RENAL #### [facility] [address] [address] [address] Nacho Jeffery UA RANDOM W/MICROSCOPICon BACTERIA NONE SEEN Normal NONE SEEN The [facility] Comment on above: Performed By: #### M G, URIC, RENAL #### [facility] [address] [address] [address] Nacho Jeffery Bilirubin Ql (U) Negative Normal NEGATIVE [facility] Comment on above: Performed By: #### M G, URIC, RENAL #### [facility] [address] [address] [address] Nacho Jeffery CAST NONE SEEN Normal NONE SEEN The [facility] Comment on above: Performed By: #### M G, URIC, RENAL #### [facility] [address] [address] [address] Nacho Jeffery Clarity (U) CLEAR Normal CLEAR The [facility] Comment on above: Performed By: #### M G, URIC, RENAL #### [facility] [address] [address] [address] Nacho Jeffery Color (U) LT. YELLOW Normal YELLOW The [facility] Comment on above: Performed By: #### M G, URIC, RENAL #### [facility] [address] [place] [address] Dr. Nacho Jeffery Crystals LM Nom (Urine sed) NONE SEEN Normal NONE SEEN The [facility] Comment on above: Performed By: #### M G, URIC, RENAL #### [facility] [address] [place] [address] Dr. Nacho Jeffery Epithelial cells LM Ql (Urine sed) FEW Abnormal NONE SEEN /RARE The [facility] Comment on above: Performed By: #### M G, URIC, RENAL #### [facility] [address] [place] [address] Dr. Nacho Jeffery Glucose Ql (U) Negative Normal NEGATIVE The [facility] Comment on above: Performed By: #### M G, URIC, RENAL #### [facility] [address] [address] [address] Nacho Jeffery Hemoglobin Ql (U) Negative Normal NEGATIVE [facility] Comment on above: Performed By: #### M G, URIC, RENAL #### [facility] [address] [place] [address] Dr. Nacho Jeffery Ketones Ql (U) Negative Normal NEGATIVE The [facility] Comment on above: Performed By: #### M G, URIC, RENAL #### [facility] [address] [place] [address] Dr. Nacho Jeffery LEUKOCYTES SMALL Abnormal NEGATIVE The [facility] Comment on above: Performed By: #### M G, URIC, RENAL #### [facility] [address] [address] [address] Nacho Jeffery MUCOUS NONE SEEN Normal NONE SEEN The [facility] Comment on above: Performed By: #### M G, URIC, RENAL #### [facility] [address] [address] [address] Nacho Jeffery Nitrite Ql (U) Negative Normal NEGATIVE The [facility] Comment on above: Performed By: #### M G, URIC, RENAL #### [facility] [address] [address] [address] Nacho Jeffery pH (U) 5.5 [pH] Normal 5-9 [facility] Comment on above: Performed By: #### M G, URIC, RENAL #### [facility] [address] [place] [address] Dr. Nacho Jeffery RBC 0-2 Normal 0-2 [facility] Comment on above: Performed By: #### M G, URIC, RENAL #### [facility] [address] [place] [address] Dr. Nacho Jeffery SPEC GRAVITY 1.015 Normal 1.005-<=1.025 [facility] Comment on above: Performed By: #### M G, URIC, RENAL #### [facility] [address] [place] [address] Dr. Nacho Jeffery UA PROTEIN Negative Normal NEGATIVE/ TRACE The [facility] Comment on above: Performed By: #### M G, URIC, RENAL #### [facility] [address] [place] [address] Dr. Nacho Jeffery Urobilinogen Qn (U) 0.2 {Zuleyka'U}/dL Normal 0.2 - 1. 0 The [facility] Comment on above: Performed By: #### M G, URIC, RENAL #### [facility] [address] [place] [address] Dr. Nacho Jeffery WBC 5-10 Abnormal NONE SEEN The [facility] Comment on above: Performed By: #### M G, URIC, RENAL #### [facility] [address] [address] [address] Nacho Jeffery URIC ACID SERUMon 03-30-2022 Urate [Mass/Vol] 7.0 mg/dL Critically high 2.6-6.0 [facility] Comment on above: Performed By: #### M G, URIC, RENAL #### [facility] [address] [place] [address] Dr. Nacho Jeffery URINE T PROTEIN CREAT RATIOo n 03-30-2022 Protein (U) [Mass/Vol] 7.1 mg/dL Normal <=12.0 [facility] Comment on above: Performed By: #### U RTPCR #### [facility] [address] [place] [address] Dr. Nacho Jeffery UR PROT CREAT RAT 0.06 Normal [facility] Comment on above: Performed By: #### U RTPCR #### [facility] [address] [place] [address] Dr. Nacho Jeffery URINE CREAT 113.23 mg/dL Normal 20.00-300.00 [facility] Comment on above: Performed By: #### U RTPCR #### [facility] [address] [place] [address] Dr. Nacho Jeffery VITAMIN D 25 OHon 03-30-2022 VIT D 25-OH 57.4 ng/mL Normal [facility] Comment on above: Performed By: #### M G, URIC, RENAL #### [facility] [address] [place] [address] Dr. Nacho Jeffery VIT D RANGES SEE BELOW Normal [facility] Comment on above: Result Comment: <20 ng/mL Vit D deficient 20 - <30 ng/mL Vit D insufficient 30 - 100 ng/mL Vit D sufficient >100 ng/mL Potential Toxicity Performed By: #### M G, URIC, RENAL #### [facility] [address] [place] [address] Dr. Nacho Jeffery COMPREHENSIVE METABOLIC PANE Jared 08-30-2021 Albumin [Mass/Vol] 3.7 g/dL Normal 3.6-5.1 [facility] Comment on above: Performed By: #### 1 0231, 7600 #### [facility] [address] [place] [address] Slate Worker: Mauricio Kern MD Albumin/Globulin [Mass ratio] 1.4 {ratio} Normal 1.0-2.5 [facility] Comment on above: Performed By: #### 1 0231, 7600 #### [facility] [address] [place] [address] Slate Worker: Mauricio Kern MD ALP [Catalytic activity/Vol] 98 U/L Normal 37-153 [facility] Comment on above: Performed By: #### 1 0231, 7600 #### [facility] [address] [place] [address] Slate Worker: Mauricio Kern MD ALT [Catalytic activity/Vol] 23 U/L Normal 6-29 [facility] Comment on above: Performed By: #### 1 0231, 7600 #### [facility] [address] [place] [address] Slate Worker: Mauricio Kern MD AST [Catalytic activity/Vol] 22 U/L Normal 10-35 [facility] Comment on above: Performed By: #### 1 0231, 7600 #### [facility] [address] [place] [address] Slate Worker: Mauricio Kern MD Bilirubin [Mass/Vol] 0.4 mg/dL Normal 0.2-1.2 [facility] Comment on above: Performed By: #### 1 0231, 7600 #### [facility] [place] [address] Slate Worker: Mauricio Kern MD Calcium [Mass/Vol] 9.2 mg/dL Normal 8.6-10.4 [facility] Comment on above: Performed By: #### 1 0231, 7600 #### [facility] [address] [place] [address] Slate Worker: Mauricio Kern MD Chloride [Moles/Vol] 103 mmol/L Normal 98-110 [facility] Comment on above: Performed By: #### 1 0231, 7600 #### [facility] [address], [address] [place] [address] Slate Worker: Mauricio Kern MD CO2 [Moles/Vol] 28 mmol/L Normal 20-32 [facility] Comment on above: Performed By: #### 1 023, 7600 #### [facility] [address], [address] [place] [address] Slate Worker: Mauricio Kern MD Creatinine [Mass/Vol] 2.22 mg/dL High 0.60-0.93 [facility] Comment on above: Result Comment: For patients >49 years of age, the reference limit for Creatinine is approximately 13% higher for people identified as -Sierra Leone[place]. Performed By: #### 1 023, 7600 #### [facility] of [address], [address] [place] [address] Slate Worker: Mauricio Kern MD eGFR NON-AFR. YEMENI 21 mL/min/1.73m2 Low > OR = 60 [facility] Comment on above: Performed By: #### 1 023, 7600 #### [facility] [place] [address] Slate Worker: Mauricio Kern MD GFR/1.73 sq M.predicted among blacks MDRD (S/P/Bld) [Vol rate/Area] 24 mL/min/{1.73_m2} Low > OR = 60 [facility] Comment on above: Performed By: #### 1 0231, 7600 #### [facility] of [address], [address] [place] [address] Slate Worker: Mauricio Kern MD Globulin (S) [Mass/Vol] 2.7 g/dL Normal 1.9-3.7 [facility] Comment on above: Performed By: #### 1 0231, 7600 #### [facility] of [address], [address] [place] [address] Slate Worker: Mauricio Kern MD Glucose [Mass/Vol] 107 mg/dL High 65-99 [facility] Comment on above: Result Comment: Fasting reference interval For someone without known diabetes, a glucose value between 100 and 125 mg/dL is consistent with prediabetes and should be confirmed with a follow-up test. Performed By: #### 1 0231, 7600 #### [facility] [place] [address] Slate Worker: Mauricio Kern MD Potassium [Moles/Vol] 4.7 mmol/L Normal 3.5-5.3 [facility] Comment on above: Performed By: #### 1 023, 7600 #### [facility] [place] [address] Slate Worker: Mauricio Kern MD Protein [Mass/Vol] 6.4 g/dL Normal 6.1-8.1 [facility] Comment on above: Performed By: #### 1 023, 7600 #### [facility] [place] [address] Slate Worker: Mauricio Kern MD Sodium [Moles/Vol] 141 mmol/L Normal 135-146 [facility] Comment on above: Performed By: #### 1 0231, 7600 #### [facility] [place] [address] Slate Worker: Mauricio Kern MD Urea nitrogen [Mass/Vol] 69 mg/dL High 7-25 [facility] Comment on above: Performed By: #### 1 023, 7600 #### [facility] [place] [address] Slate Worker: Mauricio Kern MD Urea nitrogen/Creatinine [Mass ratio] 31 mg/mg High 6-22 [facility] Comment on above: Performed By: #### 1 0231, 7600 #### [facility] [place] [address] Slate Worker: Mauricio Kern MD LIPID PANEL, [address] Cholesterol [Mass/Vol] 142 mg/dL Normal <200 [facility] Comment on above: Order Comment: FASTI NG:YES FASTING: YES Performed By: #### 1 0231, 7600 #### [facility] [address], [address] [place] [address] Slate Worker: Mauricio Kern MD Cholesterol in HDL [Mass/Vol] 47 mg/dL Low > OR = 50 [facility] Comment on above: Order Comment: FASTI NG:YES FASTING: YES Performed By: #### 1 0231, 7600 #### [facility] [address], [address] [place] [address] Slate Worker: Mauricio Kern MD Cholesterol in LDL [Mass/Vol] [...] LDL-C. Sean BREAUX et al. SHRUTHI. 2013;310(19): 8094-6412 (http://education.myTomorrows/faq/GSI038) Performed By: #### 1 023, 7600 #### [facility] [address], [address] [place] [address] Slate Worker: Mauricio Kern MD Cholesterol.total/C holesterol in HDL [Mass ratio] 3.0 {ratio} Normal <5.0 [facility] Comment on above: Order Comment: FASTI NG:YES FASTING: YES Performed By: #### 1 0231, 7600 #### [facility] [address], [address] [place] [address] Slate Worker: Mauricio Kern MD NON HDL CHOLESTEROL 95 mg/dL (calc) Normal <130 [facility] Comment on above: Order Comment: FASTI NG:YES FASTING: YES Result Comment: For patients with diabetes plus 1 major ASCVD risk factor, treating to a non-HDL-C goal of <100 mg/dL (LDL-C of <70 mg/dL) is considered a therapeutic option. Performed By: #### 1 0231, 7600 #### [facility] [address], [address] [place] [address] Slate Worker: Mauricio Kern MD Triglyceride [Mass/Vol] 188 mg/dL High <150 [facility] Comment on above: Order Comment: FASTI NG:YES FASTING: YES Performed By: #### 1 023, 0 #### [facility] [address], [address] [place] [address] Slate Worker: Mauricio Kern MD BASIC METABOLIC PANELon 05- Calcium [Mass/Vol] 10.0 mg/dL Normal 8.6-10.3 [facility] Comment on above: Performed By: #### 0 0071 #### [facility] [address] [place] [address], [facility] Chloride [Moles/Vol] 101 mmol/L Normal 98-107 [facility] Comment on above: Performed By: #### 0 0071 #### [facility] [address] [place] [address], [place] CO2 [Moles/Vol] 28 mmol/L Normal 21-31 [facility] Comment on above: Performed By: #### 0 0071 #### [facility] [address] [place] [id number], [facility] Creatinine [Mass/Vol] 1.96 mg/dL High 0.60-1.20 [facility] Comment on above: Performed By: #### 0 0071 #### [facility] [address] [place] [id number], [facility] eGFR- 30 ml/min/1.73sq m Abnormal >60 [facility] Comment on above: Result Comment: Calc ulation may not be valid for patients over 70 years Performed By: #### 0 0071 #### [facility] [address] [place] [address], [facility] eGFR- non- 24 ml/min/1.73sq m Abnormal >60 [facility] Comment on above: Result Comment: Calc ulation may not be valid for patients over 70 years Performed By: #### 0 0071 #### [facility] [address] [place] [address], [facility] Glucose [Mass/Vol] 171 mg/dL High 70-100 [facility] Comment on above: Performed By: #### 0 0071 #### [facility] [address] [facility] [place] [address], [facility] Potassium [Moles/Vol] 3.9 mmol/L Normal 3.5-5.1 [facility] Comment on above: Performed By: #### 0 0071 #### [facility] [address] [place] [address], [facility] Sodium [Moles/Vol] 139 mmol/L Normal 136-145 [facility] Comment on above: Performed By: #### 0 0071 #### [facility] [address] [address], [facility] Urea nitrogen [Mass/Vol] 66 mg/dL High 7-25 [facility] Comment on above: Performed By: #### 0 0071 #### [facility] [address] [facility]. [place], [place] [id number] [place] [address] Cardiovascular Lab Reporton 03-30-2021 Cardiovascular Lab Report [facility] Patient Name: Adore Wolff [facility] MR #: [id number] Physician: Moe Parham, Department of M.D. Medicine Service Date: 03/30/2021 Division of Birthdate: 1940 Cardiology Room #: Adult Cardiovascular Services [facility] [address] [place], [place] [address] Cardiovascular Laboratory Report FINAL IMPRESSIONS: 1. Moderate [...] enzyme inhibitor/receptor micki. 4. Follow up with [facility] Cardiology in the next 2 to [...] the left radial artery was obtained. A 6-Zimbabwean glide sheath was inserted without difficulty. Bilateral selective coronary angiography was performed using JL4 and a 4-Zimbabwean 3DRC catheter. After reviewing the images and [...] Parham M.D. Date Trans: 03/30/2021 03:19 P/molly [id number] cc: Fernie Clark M.D. [address] [place] [id number] [facility] Vital Signs Date Time Vital Sign Value Performing Clinician Facility 12-26-2024 09:33-0500 Body temperature 97.7 [degF] Fernie Clark DO Work Phone: [facility] [employer] [facility] 12-26-2024 09:33-0500 Diastolic blood pressure 78 mm[Hg] Fernie Molinalong DO Work Phone: [facility] [employer] [facility] 12-26-2024 09:33-0500 Heart rate 64 /min Fernie Molinalong DO Work Phone: [facility] [employer] 12-26-2024 09:33-0500 Respiratory rate 18 /min Fernie MolinaLaunchGramng DO Work Phone: [facility] [employer] 12-26-2024 09:33-0500 SaO2% (BldA) [Mass fraction] 98 % Fernie Connectipitylong [facility] 12-26-2024 09:33-0500 Systolic blood pressure 178 mm[Hg] Fernie Tracylong DO Work Phone: [facility] [employer] [facility] 12-19-2024 11:12-0500 Body mass index (BMI) [Ratio] 43.27 kg/m2 Fernie Connectipitylong DO [facility] 12-19-2024 11:12-0500 Body temperature 97.7 [degF] Fernie Furlong DO Work Phone: [facility] [employer] [facility] 12-19-2024 11:12-0500 Body weight 117.94 kg Fernie Furlong DO Work Phone: [facility] [employer] 12-19-2024 11:12-0500 Heart rate 60 /min Fernie Furlong DO Work Phone: [facility] [employer] 12-19-2024 11:12-0500 Respiratory rate 18 /min Fernie Furlong DO Work Phone: [facility] [employer] [facility] 12-19-2024 11:12-0500 SaO2% (BldA) [Mass fraction] 95 % Fernie Furlong DO Work Phone: [facility] [employer] [facility] 11-04-2024 09:42-0500 Body height 165.1 cm Pfo 1 [facility] [employer] [facility] 11-04-2024 09:42-0500 Body mass index (BMI) [Ratio] 45.26 kg/m2 Pfo 1 [facility] [employer] [facility] 11-04-2024 09:42-0500 Body temperature 97.5 [degF] Pfo 1 [facility] [place] [employer] [facility] 11-04-2024 09:42-0500 Body weight 123.38 kg Pfo 1 [facility] [employer] [facility] 11-04-2024 09:42-0500 Diastolic blood pressure 65 mm[Hg] Pfo 1 [facility] [employer] [facility] 11-04-2024 09:42-0500 Heart rate 65 /min Pfo 1 [facility] 11-04-2024 09:42-0500 Respiratory rate 18 /min Pfo 1 [facility] [place] [employer] [facility] 11-04-2024 09:42-0500 SaO2% (BldA) [Mass fraction] 98 % Pfo 1 [facility] 11-04-2024 09:42-0500 Systolic blood pressure 153 mm[Hg] Pfo 1 [facility] 10-07-2024 09:29-0500 Body height 165.1 cm Pfo 2 [facility] 10-07-2024 09:29-0500 Body mass index (BMI) [Ratio] 45.26 kg/m2 Pfo 2 [facility] 10-07-2024 09:29-0500 Body temperature 97.59 [degF] Pfo 2 [facility] 10-07-2024 09:29-0500 Body weight 123.38 kg Pfo 2 [facility] 10-07-2024 09:29-0500 Diastolic blood pressure 63 mm[Hg] Pfo 2 [facility] 10-07-2024 09:29-0500 Heart rate 72 /min Pfo 2 [facility] 10-07-2024 09:29-0500 Respiratory rate 18 /min Pfo 2 [facility] 10-07-2024 09:29-0500 SaO2% (BldA) [Mass fraction] 94 % Pfo 2 [facility] 10-07-2024 09:29-0500 Systolic blood pressure 155 mm[Hg] Pfo 2 [facility] 10-01-2024 09:24-0500 Body height 165.1 cm Pfo 5 [facility] 10-01-2024 09:24-0500 Body mass index (BMI) [Ratio] 45.26 kg/m2 Pfo 5 [facility] 10-01-2024 09:24-0500 Body temperature 97.39 [degF] Pfo 5 [facility] 10-01-2024 09:24-0500 Body weight 123.38 kg Pfo 5 [facility] 10-01-2024 09:24-0500 Diastolic blood pressure 56 mm[Hg] Pfo 5 [facility] 10-01-2024 09:24-0500 Heart rate 76 /min Pfo 5 [facility] 10-01-2024 09:24-0500 Respiratory rate 16 /min Pfo 5 [facility] 10-01-2024 09:24-0500 SaO2% (BldA) [Mass fraction] 96 % Pfo 5 [facility] 10-01-2024 09:24-0500 Systolic blood pressure 153 mm[Hg] Pfo 5 [facility] 09-10-2024 09:21-0400 Body temperature 97.7 [degF] Pfo 5 [facility] 09-10-2024 09:21-0400 Diastolic blood pressure 61 mm[Hg] Pfo 5 [facility] 09-10-2024 09:21-0400 Heart rate 68 /min Pfo 5 [facility] 09-10-2024 09:21-0400 Respiratory rate 18 /min Pfo 5 [facility] 09-10-2024 09:21-0400 SaO2% (BldA) [Mass fraction] 99 % Pfo 5 [facility] 09-10-2024 09:21-0400 Systolic blood pressure 164 mm[Hg] Pfo 5 [facility] 08-27-2024 09:27-0400 Body height 165.1 cm Pfo 5 [facility] 08-27-2024 09:27-0400 Body mass index (BMI) [Ratio] 46.1 kg/m2 Pfo 5 [facility] 08-27-2024 09:27-0400 Body temperature 97.39 [degF] Pfo 5 [facility] 08-27-2024 09:27-0400 Body weight 125.65 kg Pfo 5 [facility] 08-27-2024 09:27-0400 Diastolic blood pressure 86 mm[Hg] Pfo 5 [facility] 08-27-2024 09:27-0400 Heart rate 75 /min Pfo 5 [facility] 08-27-2024 09:27-0400 Respiratory rate 16 /min Pfo 5 [facility] 08-27-2024 09:27-0400 SaO2% (BldA) [Mass fraction] 98 % Pfo 5 [facility] 08-27-2024 09:270400 Systolic blood pressure 151 mm[Hg] Pfo 5 [facility] 08-20-2024 09:17-0400 Body height 165.1 cm Pfo 5 [facility] 08-20-2024 09:17-0400 Body mass index (BMI) [Ratio] 46.1 kg/m2 Pfo 5 [facility] 08-20-2024 09:17-0400 Body temperature 97.59 [degF] Pfo 5 [facility] 08-20-2024 09:17-0400 Body weight 125.65 kg Pfo 5 [facility] 08-20-2024 09:17-0400 Diastolic blood pressure 67 mm[Hg] Pfo 5 [facility] 08-20-2024 09:17-0400 Heart rate 66 /min Pfo 5 [facility] 08-20-2024 09:17-0400 Respiratory rate 16 /min Pfo 5 [facility] 08-20-2024 09:17-0400 SaO2% (BldA) [Mass fraction] 99 % Pfo 5 [facility] 08-20-2024 09:17-0400 Systolic blood pressure 167 mm[Hg] Pfo 5 [facility] 08-13-2024 09:20-0400 Body height 165.1 cm Pfo 4 [facility] 08-13-2024 09:20-0400 Body mass index (BMI) [Ratio] 46.1 kg/m2 Pfo 4 [facility] 08-13-2024 09:20-0400 Body temperature 97.59 [degF] Pfo 4 [facility] 08-13-2024 09:20-0400 Body weight 125.65 kg Pfo 4 [facility] 08-13-2024 09:20-0400 Diastolic blood pressure 65 mm[Hg] Pfo 4 [facility] 08-13-2024 09:20-0400 Heart rate 70 /min Pfo 4 [facility] 08-13-2024 09:20-0400 Respiratory rate 16 /min Pfo 4 [facility] 08-13-2024 09:20-0400 SaO2% (BldA) [Mass fraction] 96 % Pfo 4 [facility] 08-13-2024 09:20-0400 Systolic blood pressure 169 mm[Hg] Pfo 4 [facility] 08-06-2024 09:27-0400 Body height 165.1 cm Pfo 5 [facility] 08-06-2024 09:27-0400 Body mass index (BMI) [Ratio] 46.1 kg/m2 Pfo 5 [facility] 08-06-2024 09:27-0400 Body temperature 97.5 [degF] Pfo 5 [facility] 08-06-2024 09:27-0400 Body weight 125.65 kg Pfo 5 [facility] 08-06-2024 09:27-0400 Diastolic blood pressure 54 mm[Hg] Pfo 5 [facility] 08-06-2024 09:27-0400 Heart rate 73 /min Pfo 5 [facility] 08-06-2024 09:27-0400 Respiratory rate 16 /min Pfo 5 [facility] 08-06-2024 09:27-0400 SaO2% (BldA) [Mass fraction] 95 % Pfo 5 [facility] 08-06-2024 09:27-0400 Systolic blood pressure 160 mm[Hg] Pfo 5 [facility] 07-30-2024 09:22-0400 Body height 165.1 cm Pfo 5 [facility] 07-30-2024 09:22-0400 Body mass index (BMI) [Ratio] 46.26 kg/m2 Pfo 5 [facility] 07-30-2024 09:22-0400 Body temperature 97.2 [degF] Pfo 5 [facility] 07-30-2024 09:22-0400 Body weight 126.1 kg Pfo 5 [facility] 07-30-2024 09:22-0400 Diastolic blood pressure 63 mm[Hg] Pfo 5 [facility] 07-30-2024 09:22-0400 Heart rate 68 /min Pfo 5 [facility] 07-30-2024 09:22-0400 Respiratory rate 16 /min Pfo 5 [facility] 07-30-2024 09:22-0400 SaO2% (BldA) [Mass fraction] 94 % Pfo 5 [facility] 07-30-2024 09:22-0400 Systolic blood pressure 148 mm[Hg] Pfo 5 [facility] 07-23-2024 09:25-0400 Body height 165.1 cm Pfo 5 [facility] 07-23-2024 09:25-0400 Body mass index (BMI) [Ratio] 46.26 kg/m2 Pfo 5 [facility] 07-23-2024 09:25-0400 Body weight 126.1 kg Pfo 5 [facility] 07-23-2024 09:25-0400 Diastolic blood pressure 55 mm[Hg] Pfo 5 [facility] 07-23-2024 09:25-0400 Heart rate 62 /min Pfo 5 [facility] 07-23-2024 09:25-0400 Respiratory rate 16 /min Pfo 5 [facility] 07-23-2024 09:25-0400 SaO2% (BldA) [Mass fraction] 97 % Pfo 5 [facility] 07-23-2024 09:25-0400 Systolic blood pressure 155 mm[Hg] Pfo 5 [facility] 07-16-2024 09:44-0400 Body height 165.1 cm Pfo 5 [facility] 07-16-2024 09:44-0400 Body mass index (BMI) [Ratio] 46.26 kg/m2 Pfo 5 [facility] 07-16-2024 09:44-0400 Body temperature 97.7 [degF] Pfo 5 [facility] 07-16-2024 09:44-0400 Body weight 126.1 kg Pfo 5 [facility] 07-16-2024 09:44-0400 Diastolic blood pressure 54 mm[Hg] Pfo 5 [facility] 07-16-2024 09:44-0400 Heart rate 70 /min Pfo 5 [facility] 07-16-2024 09:44-0400 Respiratory rate 16 /min Pfo 5 [facility] 07-16-2024 09:44-0400 SaO2% (BldA) [Mass fraction] 100 % Pfo 5 [facility] 07-16-2024 09:44-0400 Systolic blood pressure 160 mm[Hg] Pfo 5 [facility] 07-09-2024 09:49-0400 Body height 165.1 cm Pfo 1 [facility] 07-09-2024 09:49-0400 Body mass index (BMI) [Ratio] 46.26 kg/m2 Pfo 1 [facility] 07-09-2024 09:49-0400 Body temperature 98.2 [degF] Pfo 1 [facility] 07-09-2024 09:49-0400 Body weight 126.1 kg Pfo 1 [facility] 07-09-2024 09:49-0400 Diastolic blood pressure 52 mm[Hg] Pfo 1 [facility] 07-09-2024 09:49-0400 Heart rate 78 /min Pfo 1 [facility] 07-09-2024 09:49-0400 Respiratory rate 16 /min Pfo 1 [facility] 07-09-2024 09:49-0400 SaO2% (BldA) [Mass fraction] 96 % Pfo 1 [facility] 07-09-2024 09:49-0400 Systolic blood pressure 147 mm[Hg] Pfo 1 [facility] 07-02-2024 09:34-0400 Body height 165.1 cm Pfo 1 [facility] 07-02-2024 09:34-0400 Body mass index (BMI) [Ratio] 46.26 kg/m2 Pfo 1 [facility] 07-02-2024 09:34-0400 Body temperature 97.39 [degF] Pfo 1 [facility] 07-02-2024 09:34-0400 Body weight 126.1 kg Pfo 1 [facility] 07-02-2024 09:34-0400 Diastolic blood pressure 60 mm[Hg] Pfo 1 [facility] 07-02-2024 09:34-0400 Heart rate 66 /min Pfo 1 [facility] 07-02-2024 09:34-0400 Respiratory rate 16 /min Pfo 1 [facility] 07-02-2024 09:34-0400 SaO2% (BldA) [Mass fraction] 98 % Pfo 1 [facility] 07-02-2024 09:34-0400 Systolic blood pressure 153 mm[Hg] Pfo 1 [facility] 06-25-2024 09:26-0400 Body height 165.1 cm Pfo 7 [facility] 06-25-2024 09:26-0400 Body mass index (BMI) [Ratio] 46.26 kg/m2 Pfo 7 [facility] 06-25-2024 09:26-0400 Body temperature 97.39 [degF] Pfo 7 [facility] 06-25-2024 09:26-0400 Body weight 126.1 kg Pfo 7 [facility] 06-25-2024 09:26-0400 Diastolic blood pressure 66 mm[Hg] Pfo 7 [facility] 06-25-2024 09:26-0400 Heart rate 83 /min Pfo 7 [facility] 06-25-2024 09:26-0400 Respiratory rate 16 /min Pfo 7 [facility] 06-25-2024 09:26-0400 SaO2% (BldA) [Mass fraction] 98 % Pfo 7 [facility] 06-25-2024 09:26-0400 Systolic blood pressure 156 mm[Hg] Pfo 7 [facility] 06-18-2024 09:30-0400 Body height 165.1 cm Pfo 1 [facility] 06-18-2024 09:30-0400 Body mass index (BMI) [Ratio] 46.1 kg/m2 Pfo 1 [facility] 06-18-2024 09:30-0400 Body temperature 97.5 [degF] Pfo 1 [facility] 06-18-2024 09:30-0400 Body weight 125.65 kg Pfo 1 [facility] 06-18-2024 09:30-0400 Diastolic blood pressure 46 mm[Hg] Pfo 1 [facility] 06-18-2024 09:30-0400 Heart rate 72 /min Pfo 1 [facility] 06-18-2024 09:30-0400 Respiratory rate 20 /min Pfo 1 [facility] 06-18-2024 09:30-0400 SaO2% (BldA) [Mass fraction] 95 % Pfo 1 [facility] 06-18-2024 09:30-0400 Systolic blood pressure 148 mm[Hg] Pfo 1 [facility] 06-11-2024 09:21-0400 Body height 165.1 cm Pfo 1 [facility] 06-11-2024 09:21-0400 Body mass index (BMI) [Ratio] 46.26 kg/m2 Pfo 1 [facility] 06-11-2024 09:21-0400 Body temperature 97.59 [degF] Pfo 1 [facility] 06-11-2024 09:21-0400 Body weight 126.1 kg Pfo 1 [facility] 06-11-2024 09:21-0400 Diastolic blood pressure 60 mm[Hg] Pfo 1 [facility] 06-11-2024 09:21-0400 Heart rate 88 /min Pfo 1 [facility] 06-11-2024 09:21-0400 Respiratory rate 20 /min Pfo 1 [facility] 06-11-2024 09:21-0400 SaO2% (BldA) [Mass fraction] 96 % Pfo 1 [facility] 06-11-2024 09:21-0400 Systolic blood pressure 147 mm[Hg] Pfo 1 [facility] 05-28-2024 09:34-0400 Body height 165.1 cm Pfo 1 [facility] 05-28-2024 09:34-0400 Body mass index (BMI) [Ratio] 46.43 kg/m2 Pfo 1 [facility] 05-28-2024 09:34-0400 Body temperature 97.5 [degF] Pfo 1 [facility] 05-28-2024 09:34-0400 Body weight 126.55 kg Pfo 1 [facility] 05-28-2024 09:34-0400 Diastolic blood pressure 66 mm[Hg] Pfo 1 [facility] 05-28-2024 09:34-0400 Heart rate 71 /min Pfo 1 [facility] 05-28-2024 09:34-0400 Respiratory rate 20 /min Pfo 1 [facility] 05-28-2024 09:34-0400 SaO2% (BldA) [Mass fraction] 99 % Pfo 1 [facility] 05-28-2024 09:34-0400 Systolic blood pressure 152 mm[Hg] Pfo 1 [facility] 05-27-2024 13:09-0400 Body height 165.1 cm Fernie Furlong DO Work Phone: [facility] [employer] [facility] 05-27-2024 13:09-0400 Body mass index (BMI) [Ratio] 46.64 kg/m2 Fernie Furlong DO Work Phone: [facility] 05-27-2024 13:09-0400 Body temperature 97.9 [degF] Fernie Furlong DO Work Phone: [facility] 05-27-2024 13:09-0400 Body weight 127.14 kg Fernie Furlong DO Work Phone: [facility] 05-27-2024 13:09-0400 Diastolic blood pressure 60 mm[Hg] Fernie Furlong DO Work Phone: [facility] 05-27-2024 13:09-0400 Heart rate 74 /min Fernie Furlong DO Work Phone: [facility] 05-27-2024 13:09-0400 Respiratory rate 18 /min Fernie Furlong DO Work Phone: [facility] 05-27-2024 13:09-0400 SaO2% (BldA) [Mass fraction] 94 % Fernie Furlong DO Work Phone: [facility] 05-27-2024 13:09-0400 Systolic blood pressure 140 mm[Hg] Fernie Furlong DO Work Phone: [facility] 05-21-2024 09:27-0400 Body height 165.1 cm Pfo 1 [facility] 05-21-2024 09:27-0400 Body mass index (BMI) [Ratio] 46.43 kg/m2 Pfo 1 [facility] 05-21-2024 09:27-0400 Body temperature 97.7 [degF] Pfo 1 [facility] 05-21-2024 09:27-0400 Body weight 126.55 kg Pfo 1 [facility] 05-21-2024 09:27-0400 Diastolic blood pressure 46 mm[Hg] Pfo 1 [facility] 05-21-2024 09:27-0400 Heart rate 63 /min Pfo 1 [facility] 05-21-2024 09:27-0400 Respiratory rate 20 /min Pfo 1 [facility] 05-21-2024 09:27-0400 SaO2% (BldA) [Mass fraction] 95 % Pfo 1 [facility] 05-21-2024 09:27-0400 Systolic blood pressure 167 mm[Hg] Pfo 1 [facility] 05-14-2024 09:15-0400 Body height 165.1 cm Pfo 1 [facility] 05-14-2024 09:15-0400 Body mass index (BMI) [Ratio] 46.43 kg/m2 Pfo 1 [facility] 05-14-2024 09:15-0400 Body temperature 97.81 [degF] Pfo 1 [facility] 05-14-2024 09:15-0400 Body weight 126.55 kg Pfo 1 [facility] 05-14-2024 09:15-0400 Diastolic blood pressure 59 mm[Hg] Pfo 1 [facility] 05-14-2024 09:15-0400 Heart rate 72 /min Pfo 1 [facility] 05-14-2024 09:15-0400 Respiratory rate 20 /min Pfo 1 [facility] 05-14-2024 09:15-0400 SaO2% (BldA) [Mass fraction] 95 % Pfo 1 [facility] 05-14-2024 09:15-0400 Systolic blood pressure 161 mm[Hg] Pfo 1 [facility] 05-07-2024 09:25-0400 Body height 165.1 cm Pfo 1 [facility] 05-07-2024 09:25-0400 Body mass index (BMI) [Ratio] 47.09 kg/m2 Pfo 1 [facility] 05-07-2024 09:25-0400 Body temperature 98.4 [degF] Pfo 1 [facility] 05-07-2024 09:25-0400 Body weight 128.37 kg Pfo 1 [facility] 05-07-2024 09:25-0400 Diastolic blood pressure 47 mm[Hg] Pfo 1 [facility] 05-07-2024 09:25-0400 Heart rate 69 /min Pfo 1 [facility] 05-07-2024 09:25-0400 Respiratory rate 20 /min Pfo 1 [facility] [place] [employer] [facility] 05-07-2024 09:25-0400 SaO2% (BldA) [Mass fraction] 95 % Pfo 1 [facility] 05-07-2024 09:25-0400 Systolic blood pressure 169 mm[Hg] Pfo 1 [facility] 05-01-2024 13:52-0400 Body height 165.1 cm [facility] 05-01-2024 13:52-0400 Body mass index (BMI) [Ratio] 47.5 kg/m2 [facility] 05-01-2024 13:52-0400 Body temperature 96.7 [degF] [facility] 05-01-2024 13:52-0400 Body weight 129.38 kg [facility] 05-01-2024 13:52-0400 Diastolic blood pressure 60 mm[Hg] [facility] 05-01-2024 13:52-0400 Heart rate 76 /min [facility] 05-01-2024 13:52-0400 Respiratory rate 18 /min [facility] 05-01-2024 13:52-0400 SaO2% (BldA) [Mass fraction] 95 % [facility] 05-01-2024 13:52-0400 Systolic blood pressure 130 mm[Hg] [facility] 04-30-2024 09:19-0400 Body height 165.1 cm Pfo 1 [facility] 04-30-2024 09:19-0400 Body mass index (BMI) [Ratio] 47.26 kg/m2 Pfo 1 [facility] 04-30-2024 09:19-0400 Body temperature 97.81 [degF] Pfo 1 [facility] 04-30-2024 09:19-0400 Body weight 128.82 kg Pfo 1 [facility] 04-30-2024 09:19-0400 Diastolic blood pressure 68 mm[Hg] Pfo 1 [facility] 04-30-2024 09:19-0400 Heart rate 65 /min Pfo 1 [facility] 04-30-2024 09:190400 Respiratory rate 20 /min Pfo 1 [facility] 04-30-2024 09:190400 SaO2% (BldA) [Mass fraction] 93 % Pfo 1 [facility] 04-30-2024 09:190400 Systolic blood pressure 175 mm[Hg] Pfo 1 [facility] 04-23-2024 09:28-0400 Body height 165.1 cm Pfo 6 [facility] 04-23-2024 09:28-0400 Body mass index (BMI) [Ratio] 46.93 kg/m2 Pfo 6 [facility] 04-23-2024 09:28-0400 Body temperature 97.7 [degF] Pfo 6 [facility] 04-23-2024 09:28-0400 Body weight 127.91 kg Pfo 6 [facility] 04-23-2024 09:28-0400 Diastolic blood pressure 56 mm[Hg] Pfo 6 [facility] 04-23-2024 09:28-0400 Heart rate 69 /min Pfo 6 [facility] 04-23-2024 09:28-0400 Respiratory rate 24 /min Pfo 6 [facility] 04-23-2024 09:280400 SaO2% (BldA) [Mass fraction] 98 % Pfo 6 [facility] 04-23-2024 09:28-0400 Systolic blood pressure 177 mm[Hg] Pfo 6 [facility] 04-16-2024 09:190400 Body height 165.1 cm Pfo 6 [facility] 04-16-2024 09:19-0400 Body mass index (BMI) [Ratio] 46.76 kg/m2 Pfo 6 [facility] 04-16-2024 09:19-0400 Body temperature 97.39 [degF] Pfo 6 [facility] 04-16-2024 09:19-0400 Body weight 127.46 kg Pfo 6 [facility] 04-16-2024 09:19-0400 Diastolic blood pressure 65 mm[Hg] Pfo 6 [facility] 04-16-2024 09:19-0400 Heart rate 72 /min Pfo 6 [facility] 04-16-2024 09:19-0400 Respiratory rate 18 /min Pfo 6 [facility] 04-16-2024 09:19-0400 SaO2% (BldA) [Mass fraction] 96 % Pfo 6 [facility] 04-16-2024 09:19-0400 Systolic blood pressure 177 mm[Hg] Pfo 6 [facility] 04-09-2024 09:33-0400 Body height 165.1 cm Pfo 6 [facility] 04-09-2024 09:33-0400 Body mass index (BMI) [Ratio] 46.59 kg/m2 Pfo 6 [facility] 04-09-2024 09:33-0400 Body temperature 97.59 [degF] Pfo 6 [facility] 04-09-2024 09:33-0400 Body weight 127.01 kg Pfo 6 [facility] 04-09-2024 09:33-0400 Diastolic blood pressure 66 mm[Hg] Pfo 6 [facility] 04-09-2024 09:33-0400 Heart rate 66 /min Pfo 6 [facility] 04-09-2024 09:33-0400 Respiratory rate 20 /min Pfo 6 [facility] 04-09-2024 09:33-0400 SaO2% (BldA) [Mass fraction] 96 % Pfo 6 [facility] 04-09-2024 09:33-0400 Systolic blood pressure 169 mm[Hg] Pfo 6 [facility] 04-02-2024 09:24-0400 Body height 165.1 cm Pfo 4 [facility] 04-02-2024 09:24-0400 Body mass index (BMI) [Ratio] 46.43 kg/m2 Pfo 4 [facility] 04-02-2024 09:24-0400 Body temperature 97.7 [degF] Pfo 4 [facility] 04-02-2024 09:24-0400 Body weight 126.55 kg Pfo 4 [facility] 04-02-2024 09:24-0400 Diastolic blood pressure 58 mm[Hg] Pfo 4 [facility] 04-02-2024 09:24-0400 Heart rate 71 /min Pfo 4 [facility] 04-02-2024 09:24-0400 Respiratory rate 20 /min Pfo 4 [facility] 04-02-2024 09:24-0400 SaO2% (BldA) [Mass fraction] 96 % Pfo 4 [facility] 04-02-2024 09:24-0400 Systolic blood pressure 168 mm[Hg] Pfo 4 [facility] 03-26-2024 09:32-0400 Body height 165.1 cm Pfo 6 [facility] 03-26-2024 09:32-0400 Body mass index (BMI) [Ratio] 46.1 kg/m2 Pfo 6 [facility] 03-26-2024 09:32-0400 Body temperature 97.7 [degF] Pfo 6 [facility] 03-26-2024 09:32-0400 Body weight 125.65 kg Pfo 6 [facility] 03-26-2024 09:32-0400 Diastolic blood pressure 67 mm[Hg] Pfo 6 [facility] 03-26-2024 09:32-0400 Heart rate 67 /min Pfo 6 [facility] 03-26-2024 09:32-0400 Respiratory rate 20 /min Pfo 6 [facility] 03-26-2024 09:32-0400 SaO2% (BldA) [Mass fraction] 95 % Pfo 6 [facility] 03-26-2024 09:32-0400 Systolic blood pressure 152 mm[Hg] Pfo 6 [facility] 03-19-2024 09:37-0400 Body height 165.1 cm Pfo 4 [facility] 03-19-2024 09:37-0400 Body mass index (BMI) [Ratio] 45.93 kg/m2 Pfo 4 [facility] 03-19-2024 09:37-0400 Body temperature 97.9 [degF] Pfo 4 [facility] 03-19-2024 09:37-0400 Body weight 125.19 kg Pfo 4 [facility] 03-19-2024 09:37-0400 Diastolic blood pressure 67 mm[Hg] Pfo 4 [facility] 03-19-2024 09:37-0400 Heart rate 65 /min Pfo 4 [facility] 03-19-2024 09:37-0400 Respiratory rate 20 /min Pfo 4 [facility] 03-19-2024 09:37-0400 SaO2% (BldA) [Mass fraction] 93 % Pfo 4 [facility] 03-19-2024 09:37-0400 Systolic blood pressure 180 mm[Hg] Pfo 4 [facility] 03-12-2024 09:30-0400 Body height 165.1 cm Pfo 7 [facility] 03-12-2024 09:30-0400 Body mass index (BMI) [Ratio] 45.83 kg/m2 Pfo 7 [facility] 03-12-2024 09:30-0400 Body temperature 97.5 [degF] Pfo 7 [facility] 03-12-2024 09:30-0400 Body weight 124.92 kg Pfo 7 [facility] 03-12-2024 09:30-0400 Diastolic blood pressure 55 mm[Hg] Pfo 7 [facility] 03-12-2024 09:30-0400 Heart rate 60 /min Pfo 7 [facility] 03-12-2024 09:30-0400 Respiratory rate 20 /min Pfo 7 [facility] 03-12-2024 09:30-0400 SaO2% (BldA) [Mass fraction] 95 % Pfo 7 [facility] 03-12-2024 09:30-0400 Systolic blood pressure 181 mm[Hg] Pfo 7 [facility] 02-25-2024 14:54-0400 Body height 165.1 cm Fernie Clark DO Work Phone: [facility] 02-25-2024 14:54-0400 Body mass index (BMI) [Ratio] 44.56 kg/m2 Fernie Furlong DO Work Phone: [facility] 02-25-2024 14:54-0400 Body temperature 98.29 [degF] Fernie Furlong DO Work Phone: [facility] 02-25-2024 14:54-0400 Body weight 121.47 kg Fernie Furlong DO Work Phone: [facility] 02-25-2024 14:54-0400 Diastolic blood pressure 70 mm[Hg] Fernie Furlong DO Work Phone: [facility] 02-25-2024 14:54-0400 Heart rate 60 /min Fernie Furlong DO Work Phone: [facility] [facility] 02-25-2024 14:54-0400 SaO2% (BldA) [Mass fraction] 95 % Fernie Furlong DO Work Phone: [facility] 02-25-2024 14:54-0400 Systolic blood pressure 140 mm[Hg] Fernie Furlong DO Work Phone: [facility] 02-13-2024 09:26-0400 Body height 165.1 cm Pfo 6 [facility] 02-13-2024 09:26-0400 Body mass index (BMI) [Ratio] 44.6 kg/m2 Pfo 6 [facility] 02-13-2024 09:26-0400 Body temperature 97.7 [degF] Pfo 6 [facility] 02-13-2024 09:26-0400 Body weight 121.56 kg Pfo 6 [facility] 02-13-2024 09:26-0400 Diastolic blood pressure 60 mm[Hg] Pfo 6 [facility] 02-13-2024 09:26-0400 Heart rate 60 /min Pfo 6 [facility] 02-13-2024 09:26-0400 Respiratory rate 18 /min Pfo 6 [facility] 02-13-2024 09:26-0400 SaO2% (BldA) [Mass fraction] 94 % Pfo 6 [facility] 02-13-2024 09:26-0400 Systolic blood pressure 162 mm[Hg] Pfo 6 [facility] 02-06-2024 09:30-0400 Body height 165.1 cm Pfo 6 [facility] 02-06-2024 09:30-0400 Body mass index (BMI) [Ratio] 44.6 kg/m2 Pfo 6 [facility] 02-06-2024 09:30-0400 Body temperature 97.9 [degF] Pfo 6 [facility] 02-06-2024 09:30-0400 Body weight 121.56 kg Pfo 6 [facility] 02-06-2024 09:30-0400 Diastolic blood pressure 75 mm[Hg] Pfo 6 [facility] 02-06-2024 09:30-0400 Heart rate 60 /min Pfo 6 [facility] 02-06-2024 09:30-0400 Respiratory rate 188 /min Pfo 6 [facility] 02-06-2024 09:30-0400 SaO2% (BldA) [Mass fraction] 98 % Pfo 6 [facility] 02-06-2024 09:30-0400 Systolic blood pressure 176 mm[Hg] Pfo 6 [facility] 01-30-2024 09:25-0400 Body height 165.1 cm Pfo 6 [facility] 01-30-2024 09:25-0400 Body mass index (BMI) [Ratio] 44.93 kg/m2 Pfo 6 [facility] 01-30-2024 09:25-0400 Body temperature 97.7 [degF] Pfo 6 [facility] 01-30-2024 09:25-0400 Body weight 122.47 kg Pfo 6 [facility] 01-30-2024 09:25-0400 Diastolic blood pressure 60 mm[Hg] Pfo 6 [facility] 01-30-2024 09:25-0400 Heart rate 56 /min Pfo 6 [facility] 01-30-2024 09:25-0400 Respiratory rate 18 /min Pfo 6 [facility] 01-30-2024 09:25-0400 SaO2% (BldA) [Mass fraction] 93 % Pfo 6 [facility] 01-30-2024 09:25-0400 Systolic blood pressure 168 mm[Hg] Pfo 6 [facility] 01-23-2024 09:33-0400 Body height 165.1 cm Pfo 6 [facility] 01-23-2024 09:33-0400 Body mass index (BMI) [Ratio] 45.93 kg/m2 Pfo 6 [facility] 01-23-2024 09:33-0400 Body temperature 97.39 [degF] Pfo 6 [facility] 01-23-2024 09:33-0400 Body weight 125.19 kg Pfo 6 [facility] 01-23-2024 09:33-0400 Diastolic blood pressure 73 mm[Hg] Pfo 6 [facility] 01-23-2024 09:33-0400 Heart rate 66 /min Pfo 6 [facility] 01-23-2024 09:33-0400 Respiratory rate 18 /min Pfo 6 [facility] 01-23-2024 09:33-0400 SaO2% (BldA) [Mass fraction] 98 % Pfo 6 [facility] 01-23-2024 09:33-0400 Systolic blood pressure 180 mm[Hg] Pfo 6 [facility] 01-16-2024 09:24-0500 Body height 165.1 cm Pfo 6 [facility] 01-16-2024 09:24-0500 Body mass index (BMI) [Ratio] 46.1 kg/m2 Pfo 6 [facility] 01-16-2024 09:24-0500 Body temperature 98.01 [degF] Pfo 6 [facility] 01-16-2024 09:24-0500 Body weight 125.65 kg Pfo 6 [facility] 01-16-2024 09:24-0500 Diastolic blood pressure 80 mm[Hg] Pfo 6 [facility] 01-16-2024 09:24-0500 Heart rate 71 /min Pfo 6 [facility] 01-16-2024 09:24-0500 Respiratory rate 18 /min Pfo 6 [facility] 01-16-2024 09:24-0500 SaO2% (BldA) [Mass fraction] 97 % Pfo 6 [facility] 01-16-2024 09:24-0500 Systolic blood pressure 180 mm[Hg] Pfo 6 [facility] 01-09-2024 09:36-0500 Body height 165.1 cm Pfo 3 [facility] 01-09-2024 09:36-0500 Body mass index (BMI) [Ratio] 46.1 kg/m2 Pfo 3 [facility] 01-09-2024 09:36-0500 Body temperature 97.9 [degF] Pfo 3 [facility] 01-09-2024 09:36-0500 Body weight 125.65 kg Pfo 3 [facility] 01-09-2024 09:36-0500 Diastolic blood pressure 75 mm[Hg] Pfo 3 [facility] 01-09-2024 09:36-0500 Heart rate 70 /min Pfo 3 [facility] 01-09-2024 09:36-0500 Respiratory rate 18 /min Pfo 3 [facility] 01-09-2024 09:36-0500 SaO2% (BldA) [Mass fraction] 97 % Pfo 3 [facility] 01-09-2024 09:36-0500 Systolic blood pressure 180 mm[Hg] Pfo 3 [facility] 01-02-2024 09:37-0500 Body temperature 98.01 [degF] Pfo 4 [facility] 01-02-2024 09:37-0500 Diastolic blood pressure 72 mm[Hg] Pfo 4 [facility] 01-02-2024 09:37-0500 Heart rate 62 /min Pfo 4 [facility] 01-02-2024 09:37-0500 Respiratory rate 18 /min Pfo 4 [facility] 01-02-2024 09:37-0500 SaO2% (BldA) [Mass fraction] 95 % Pfo 4 [facility] 01-02-2024 09:37-0500 Systolic blood pressure 184 mm[Hg] Pfo 4 [facility] 12-26-2023 09:37-0500 Body height 165.1 cm Pfo 4 [facility] 12-26-2023 09:37-0500 Body mass index (BMI) [Ratio] 46.1 kg/m2 Pfo 4 [facility] 12-26-2023 09:37-0500 Body temperature 97.7 [degF] Pfo 4 [facility] 12-26-2023 09:37-0500 Body weight 125.65 kg Pfo 4 [facility] 12-26-2023 09:37-0500 Diastolic blood pressure 64 mm[Hg] Pfo 4 [facility] 12-26-2023 09:37-0500 Heart rate 67 /min Pfo 4 [facility] 12-26-2023 09:37-0500 Respiratory rate 18 /min Pfo 4 [facility] 12-26-2023 09:37-0500 SaO2% (BldA) [Mass fraction] 96 % Pfo 4 [facility] 12-26-2023 09:37-0500 Systolic blood pressure 177 mm[Hg] Pfo 4 [facility] 12-19-2023 09:30-0500 Body height 165.1 cm Pfo 2 [facility] 12-19-2023 09:30-0500 Body mass index (BMI) [Ratio] 46.13 kg/m2 Pfo 2 [facility] 12-19-2023 09:30-0500 Body temperature 97.39 [degF] Pfo 2 [facility] 12-19-2023 09:30-0500 Body weight 125.74 kg Pfo 2 [facility] 12-19-2023 09:30-0500 Diastolic blood pressure 67 mm[Hg] Pfo 2 [facility] 12-19-2023 09:30-0500 Heart rate 67 /min Pfo 2 [facility] 12-19-2023 09:30-0500 Respiratory rate 18 /min Pfo 2 [facility] 12-19-2023 09:30-0500 SaO2% (BldA) [Mass fraction] 97 % Pfo 2 [facility] 12-19-2023 09:30-0500 Systolic blood pressure 196 mm[Hg] Pfo 2 [facility] 12-12-2023 09:25-0500 Body height 165.1 cm Pfo 2 [facility] 12-12-2023 09:25-0500 Body mass index (BMI) [Ratio] 45.43 kg/m2 Pfo 2 [facility] 12-12-2023 09:25-0500 Body temperature 97.5 [degF] Pfo 2 [facility] 12-12-2023 09:25-0500 Body weight 123.83 kg Pfo 2 [facility] 12-12-2023 09:25-0500 Diastolic blood pressure 71 mm[Hg] Pfo 2 [facility] 12-12-2023 09:25-0500 Heart rate 70 /min Pfo 2 [facility] 12-12-2023 09:25-0500 Respiratory rate 18 /min Pfo 2 [facility] 12-12-2023 09:25-0500 SaO2% (BldA) [Mass fraction] 98 % Pfo 2 [facility] 12-12-2023 09:25-0500 Systolic blood pressure 166 mm[Hg] Pfo 2 [facility] 12-05-2023 09:15-0500 Body height 165.1 cm Pfo 2 [facility] 12-05-2023 09:15-0500 Body mass index (BMI) [Ratio] 44.76 kg/m2 Pfo 2 [facility] 12-05-2023 09:15-0500 Body temperature 97.39 [degF] Pfo 2 [facility] 12-05-2023 09:15-0500 Body weight 122.02 kg Pfo 2 [facility] 12-05-2023 09:15-0500 Diastolic blood pressure 70 mm[Hg] Pfo 2 [facility] 12-05-2023 09:15-0500 Heart rate 71 /min Pfo 2 [facility] 12-05-2023 09:15-0500 Respiratory rate 18 /min Pfo 2 [facility] 12-05-2023 09:15-0500 SaO2% (BldA) [Mass fraction] 96 % Pfo 2 [facility] 12-05-2023 09:15-0500 Systolic blood pressure 157 mm[Hg] Pfo 2 [facility] 11-28-2023 09:17-0500 Body height 165.1 cm Pfo 1 [facility] 11-28-2023 09:17-0500 Body mass index (BMI) [Ratio] 44.93 kg/m2 Pfo 1 [facility] 11-28-2023 09:17-0500 Body temperature 97.2 [degF] Pfo 1 [facility] 11-28-2023 09:17-0500 Body weight 122.47 kg Pfo 1 [facility] 11-28-2023 09:17-0500 Diastolic blood pressure 56 mm[Hg] Pfo 1 [facility] 11-28-2023 09:17-0500 Heart rate 79 /min Pfo 1 [facility] 11-28-2023 09:17-0500 Respiratory rate 18 /min Pfo 1 [facility] 11-28-2023 09:17-0500 SaO2% (BldA) [Mass fraction] 99 % Pfo 1 [facility] 11-28-2023 09:17-0500 Systolic blood pressure 156 mm[Hg] Pfo 1 [facility] 11-26-2023 13:40-0500 Body height 165.1 cm Fernie Furlong DO Work Phone: [facility] 11-26-2023 13:40-0500 Body mass index (BMI) [Ratio] 44.45 kg/m2 Fernie Furlong DO Work Phone: [facility] 11-26-2023 13:40-0500 Body temperature 97.3 [degF] Fernie Furlong DO Work Phone: [facility] 11-26-2023 13:40-0500 Body weight 121.16 kg Fernie Furlong DO Work Phone: [facility] [employer] [facility] 11-26-2023 13:40-0500 Diastolic blood pressure 62 mm[Hg] Fernie Furlong DO Work Phone: [facility] [employer] [facility] 11-26-2023 13:40-0500 Heart rate 62 /min Fernie Furlong DO Work Phone: [facility] 11-26-2023 13:40-0500 SaO2% (BldA) [Mass fraction] 96 % Fernie Furlong DO Work Phone: [facility] [employer] [facility] 11-26-2023 13:40-0500 Systolic blood pressure 130 mm[Hg] Fernie Furlong DO Work Phone: [facility] 11-21-2023 10:01-0500 Body height 165.1 cm Pfo 1 [facility] 11-21-2023 10:01-0500 Body mass index (BMI) [Ratio] 44.6 kg/m2 Pfo 1 [facility] 11-21-2023 10:01-0500 Body temperature 97.81 [degF] Pfo 1 [facility] [place] [employer] [facility] 11-21-2023 10:01-0500 Body weight 121.56 kg Pfo 1 [facility] 11-21-2023 10:01-0500 Diastolic blood pressure 52 mm[Hg] Pfo 1 [facility] [employer] [facility] 11-21-2023 10:01-0500 Heart rate 62 /min Pfo 1 [facility] 11-21-2023 10:01-0500 Respiratory rate 18 /min Pfo 1 [facility] [place] [employer] [facility] 11-21-2023 10:01-0500 SaO2% (BldA) [Mass fraction] 94 % Pfo 1 [facility] [employer] [facility] 11-21-2023 10:01-0500 Systolic blood pressure 122 mm[Hg] Pfo 1 [facility] 11-16-2023 09:00-0500 Body temperature 96.6 [degF] DO Fernie Furlong Work Phone: [facility] 11-16-2023 09:00-0500 Diastolic blood pressure 74 mm[Hg] DO Fernie Furlong Work Phone: [facility] 11-16-2023 09:00-0500 Heart rate 71 /min DO Fernie Furlong Work Phone: [facility] 11-16-2023 09:00-0500 Respiratory rate 18 /min DO Fernie Furlong Work Phone: [facility] 11-16-2023 09:00-0500 SaO2% (BldA) [Mass fraction] 97 % DO Fernie [employer] Work Phone: [facility] 11-16-2023 09:00-0500 Systolic blood pressure 148 mm[Hg] DO Fernie Furlong Work Phone: [facility] 08-23-2023 12:20-0400 Body height 165.1 cm Gia Tammy Other [employer] Other 08-23-2023 12:20-0400 Body mass index (BMI) [Ratio] 44.09 kg/m2 Gia Tammy Other [employer] Other 08-23-2023 12:20-0400 Body temperature 96.6 [degF] Gia Tammy Other [employer] Other 08-23-2023 12:20-0400 Body weight 120.2 kg Gia Tammy Other [employer] Other 08-23-2023 12:20-0400 Diastolic blood pressure 86 mm[Hg] Gia Tammy Other [employer] Other 08-23-2023 12:20-0400 Respiratory rate 18 /min Gia Tammy Other [employer] Other 08-23-2023 12:20-0400 SaO2% (BldA) [Mass fraction] 96 % Gia Tammy Other [employer] Other 08-23-2023 12:20-0400 Systolic blood pressure 138 mm[Hg] Gia Tammy Other [employer] Other 01-25-2023 12:20-0400 Body height 165.1 cm Gia Tammy Other [employer] Other 01-25-2023 12:20-0400 Body mass index (BMI) [Ratio] 45.76 kg/m2 Gia Tammy Other [employer] Other 01-25-2023 12:20-0400 Body temperature 96.7 [degF] Gia Tammy Other [employer] Other 01-25-2023 12:20-0400 Body weight 124.74 kg Gia Tammy Other [employer] Other 01-25-2023 12:20-0400 Diastolic blood pressure 80 mm[Hg] Gia Tammy Other [employer] Other 01-25-2023 12:20-0400 Respiratory rate 18 /min Gia Tammy Other [employer] Other 01-25-2023 12:20-0400 SaO2% (BldA) [Mass fraction] 96 % Gia Tammy Other [employer] Other 01-25-2023 12:20-0400 Systolic blood pressure 139 mm[Hg] Gia Tammy Other [employer] Other 07-20-2022 13:00-0400 Body height 165.1 cm Gia Tammy Other [employer] Other 07-20-2022 13:00-0400 Body temperature 96 [degF] Gia Tammy Other [employer] Other 07-20-2022 13:00-0400 Diastolic blood pressure 71 mm[Hg] Gia Tammy Other [employer] Other 07-20-2022 13:00-0400 Respiratory rate 18 /min Gia Tammy Other [employer] Other 07-20-2022 13:00-0400 SaO2% (BldA) [Mass fraction] 96 % Gia Tammy Other [employer] Other 07-20-2022 13:00-0400 Systolic blood pressure 134 mm[Hg] Gia Tammy Other [employer] Other 04-06-2022 12:00-0400 Body height 165.1 cm Gia Tammy Other [employer] Other 04-06-2022 12:00-0400 Body mass index (BMI) [Ratio] 46.32 kg/m2 Gia Tammy Other [employer] Other 04-06-2022 12:00-0400 Body temperature 98 [degF] Gia Tammy Other [employer] Other 04-06-2022 12:00-0400 Body weight 126.28 kg Gia Tammy Other [employer] Other 04-06-2022 12:00-0400 Diastolic blood pressure 70 mm[Hg] Gia Tammy Other [employer] Other 04-06-2022 12:00-0400 Respiratory rate 20 /min Gia Tammy Other [employer] Other 04-06-2022 12:00-0400 SaO2% (BldA) [Mass fraction] 93 % Gia Tammy Other [employer] Other 04-06-2022 12:00-0400 Systolic blood pressure 122 mm[Hg] Gia Tammy Other [employer] Other 12-27-2021 16:20-0500 Body height 165.1 cm Gia Tammy Other [employer] Other 12-27-2021 16:20-0500 Body mass index (BMI) [Ratio] 46.29 kg/m2 Gia Tammy Other [employer] Other 12-27-2021 16:20-0500 Body temperature 96.2 [degF] Gia Tammy Other [employer] Other 12-27-2021 16:20-0500 Body weight 126.19 kg Gia Tammy Other [employer] Other 12-27-2021 16:20-0500 Diastolic blood pressure 78 mm[Hg] Gia Tammy Other [employer] Other 12-27-2021 16:20-0500 Respiratory rate 20 /min Gia Tammy Other [employer] Other 12-27-2021 16:20-0500 SaO2% (BldA) [Mass fraction] 95 % Gia Tammy Other [employer] Other 12-27-2021 16:20-0500 Systolic blood pressure 161 mm[Hg] Gia Tammy Other [employer] Other Encounters Encounter Date Encounter Type Care Provider Facility Start: 01-03-2025 End: 01-03-2025 Telephone encounter [facility]dal[facility]lyn hu Comment on above: status of patient patient update Start: 12-31-2024 End: 12-31-2024 Orders Only Fernie Clark DO Work Phone[facility] Comment on above: Lumbar stenosis with neurogenic claudication Start: 12-29-2024 End: 12-29-2024 Refill Livia Du C[facility] Comment on above: Lumbar stenosis with neurogenic claudication Start: 12-26-2024 End: 12-27-2024 ambulatory Fernierajinder Clark DO Work Phone: [facility] - [facility] Comment on above: Acute cystitis with hematuria (Primary Dx); Essential hypertension; Acute right-sided low back pain without sciatica; Nausea; Anxiety Start: 12-19-2024 End: 12-27-2024 Refill Fernie Mascorrong DO Work Phone: [facility] - Family Medicine Comment on above: Lumbar stenosis with neurogenic claudication Constipation, unspec ified constipation type (Primary Dx); Essential hypertension; Dysuria; History of UTI; History of sepsis; Chronic low back pain without sciatica, unspecified back pain laterality Start: 12-18-2024 End: 12-18-2024 Telephone encounter Bonny Bowles [facility] Neu[facility] Comment on above: EMG order Start: 12-10-2024 End: 12-10-2024 Orders Only Fernie Clark DO Work Phone: [facility] - [facility] Start: 12-02-2024 End: 12-02-2024 Orders Only Fernie Clark DO Work Phone: [facility] - [facility] Comment on above: Lumbar stenosis with neurogenic claudication (Primary Dx) Start: 12-01-2024 End: 12-01-2024 Telephone encounter Jennifer Limacarolynn [facility] Comment on above: orders for patient t o be sent out to hospital for evaluation Start: 11-24-2024 End: 11-24-2024 Telephone encounter Fernie Clark DO Work Phone: [facility] - [facility] Start: 11-20-2024 End: 11-20-2024 ambulatory Fernie Clark DO Work Phone: [facility] Work Phone: Start: 11-20-2024 End: 11-20-2024 Departed Referred Fernie Clark DO Work Phone: [facility] Start: 11-18-2024 End: 11-18-2024 Orders Only Fannie [facility] Comment on above: Hypomagnesemia (Prim fara Dx) Start: 11-17-2024 End: 11-19-2024 Telephone encounter Fernie Clark DO Work Phone: [facility] - [facility] Start: 11-17-2024 End: 11-17-2024 ambulatory FERNIE CLARK [facility] Start: 11-10-2024 End: 11-10-2024 ambulatory [facility] Start: 11-04-2024 End: 11-04-2024 ambulatory [facility] Comment on above: Hypomagnesemia (Prim fara Dx) Start: 11-03-2024 End: 11-03-2024 Refill Fernie Clark DO Work Phone: [facility] - [facility] Start: 11-03-2024 End: 11-03-2024 Orders Only Fernie Clark DO Work Phone: [facility] - [facility] Start: 11-03-2024 End: 11-03-2024 ambulatory Christian Curtis MD Facility:[facility] Start: 10-27-2024 End: 10-27-2024 ambulatory [facility] Start: 10-20-2024 End: 10-20-2024 Documentation procedure Clara Lira [facility] - Medical Oncology Start: 10-20-2024 End: 10-20-2024 [facility] Start: 10-13-2024 End: 10-13-2024 [facility] Start: 10-07-2024 End: 10-14-2024 Refill Fernie Clark DO Work Phone: [facility] Start: 10-07-2024 End: 10-07-2024 [facility]: Hypomagnesemia (Prim fara Dx) Start: 10-06-2024 End: 10-06-2024 [facility] Start: 10-01-2024 End: 10-01-2024 ambulatory FERNIE G [facility] Comment on above: Hypomagnesemia (Prim fara Dx) Start: 09-29-2024 End: 09-29-2024 [facility] Start: 09-27-2024 End: 09-27-2024 Orders Only Fernie Mascorrong DO Work Phone: [facility] - [facility] Start: 09-26-2024 End: 09-26-2024 Evaluation and management of inpatient DANIEL GUERRERO [facility] Start: 09-22-2024 End: 09-22-2024 ambulatory [facility] Start: 09-15-2024 End: 09-15-2024 [facility] Start: 09-11-2024 End: 09-11-2024 Refill Fernie Clark DO Work Phone: [facility] - [facility] Start: 09-10-2024 End: 09-10-2024 Telephone encounter Nina Mcgee [facility] Neu[facility] Comment on above: EMG NEW PATIENT Start: 09-10-2024 End: 09-10-2024 ambulatory [facility] Comment on above: Hypomagnesemia (Prim fara Dx) Start: 09-08-2024 End: 09-08-2024 [facility] Start: 09-04-2024 End: 09-04-2024 Orders Only Fernie Mascorrong DO Work Phone: [facility] - [facility] Comment on above: Paresthesia of right lower extremity (Primary Dx); Ross's esophagus with dysplasia Start: 09-01-2024 End: 09-01-2024 Documentation procedure Americo Lira [facility] - Medical Oncology Start: 09-01-2024 End: 09-01-2024 [facility] Start: 08-27-2024 End: 08-27-2024 [facility] Comment on above: Hypomagnesemia (Prim fara Dx) Start: 08-25-2024 End: 08-25-2024 [facility] Start: 08-22-2024 End: 08-25-2024 Refill Fernierajinder Molinalong DO Work Phone: [facility] - [facility] Comment on above: 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 ([facility]) (Primary Dx); Morbid obesity ([facility]) Start: 08-20-2024 End: 08-20-2024 ambulatory FERNIE G [facility] Comment on above: Hypomagnesemia (Prim fara Dx) Start: 08-18-2024 End: 08-18-2024 [facility] Start: 08-13-2024 End: 08-13-2024 [facility] Comment on above: Hypomagnesemia (Prim fara Dx) Start: 08-11-2024 End: 08-11-2024 ambulatory [facility] Start: 08-06-2024 End: 08-06-2024 [facility] Comment on above: Hypomagnesemia (Prim fara Dx) Start: 08-05-2024 End: 08-05-2024 Orders Only Fernie Jamarcus Roxann DO Work Phone: [facility] Internal Medicine - Family Medicine Start: 08-04-2024 End: 08-04-2024 [facility] Start: 07-30-2024 End: 07-30-2024 [facility] Comment on above: Hypomagnesemia (Prim fara Dx) Start: 07-28-2024 End: 07-28-2024 [facility] Start: 07-28-2024 End: 07-28-2024 ambulatory Christian Curtis MD Facility: [facility] Start: 07-23-2024 End: 07-23-2024 ambulatory [facility] Comment on above: Hypomagnesemia (Prim fara Dx) Start: 07-21-2024 End: 07-21-2024 [facility] Start: 07-17-2024 End: 07-17-2024 Refill Fernie Jamarcus Molinaangel luis DO Work Phone: [facility] Internal Medicine - Family Medicine Start: 07-16-2024 End: 07-16-2024 [facility] FERNIE MOLINAAMY [facility] Comment on above: Hypomagnesemia (Prim fara Dx) Start: 07-15-2024 End: 07-15-2024 [facility] FERNIE CLARK [facility] Start: 07-09-2024 End: 07-09-2024 [facility] FERNIE MOLINAAMY [facility] Comment on above: Hypomagnesemia (Prim fara Dx) Start: 07-07-2024 End: 07-07-2024 [facility] Start: 07-02-2024 End: 07-02-2024 [facility] FERNIE MOLINAAMY [facility] Comment on above: Hypomagnesemia (Prim fara Dx) Start: 06-30-2024 End: 06-30-2024 [facility] Start: 06-27-2024 End: 06-27-2024 Refill Fernie Clark DO Work Phone: [facility] Internal Medicine - Family [facility] Start: 06-25-2024 End: 06-25-2024 [facility]: Hypomagnesemia (Prim fara Dx) Start: 06-23-2024 End: 06-23-2024 [facility] Start: 06-18-2024 End: 06-18-2024 [facility]: Hypomagnesemia (Prim fara Dx) Start: 06-16-2024 End: 06-16-2024 [facility] Start: 06-11-2024 End: 06-11-2024 [facility] FERNIE MOLINAAMY [facility] Comment on above: Hypomagnesemia (Prim fara Dx) Start: 06-09-2024 End: 06-09-2024 [facility] Start: 06-04-2024 End: 06-04-2024 [facility] [place]IE [place] [facility] Start: 06-02-2024 End: 06-02-2024 ambulatory [facility] Start: 05-30-2024 End: 05-30-2024 [facility] Start: 05-29-2024 End: 05-29-2024 Telephone encounter Fernie Ricketts [place] DO Work Phone: [facility] Start: 05-28-2024 End: 05-28-2024 ambulatory [facility] Comment on above: Hypomagnesemia (Prim fara Dx) Start: 05-27-2024 End: 05-27-2024 [facility] Start: 05-27-2024 End: 05-27-2024 Office outpatient visit 25 minutes [facility] Work [facility]: [facility] Comment on above: 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 ([facility]) (Primary Dx); Dysuria; Acute rhinitis; Morbid obesity ([facility]); Incontinence of feces with fecal urgency Start: 05-27-2024 End: 05-27-2024 [facility] Start: 05-26-2024 End: 05-26-2024 [facility] Start: 05-21-2024 End: 05-21-2024 [facility] Comment on above: Hypomagnesemia (Prim fara Dx) Start: 05-19-2024 End: 05-19-2024 ambulatory [facility] Start: 05-14-2024 End: 05-14-2024 ambulatory [facility] Comment on above: Hypomagnesemia (Prim fara Dx) Start: 05-12-2024 End: 05-12-2024 ambulatory [facility] Start: 05-07-2024 End: 05-07-2024 ambulatory [facility] Comment on above: Hypomagnesemia (Prim fara Dx) Start: 05-05-2024 End: 05-05-2024 [facility] Start: 05-01-2024 End: 05-01-[address] [facility] Work Phone: Start: 05-01-2024 End: 05-01-2024 Patient encounter procedure [facility] [place] Work Phone: Start: 04-30-2024 End: 04-30-2024 ambulatory [facility] Comment on above: Hypomagnesemia (Prim fara Dx) Start: 04-29-2024 End: 04-29-2024 Refill Fernie Ricketts Tracymonicang DO Work Phone: [facility] Internal [facility] - Family Medicine Start: 04-29-2024 End: 04-29-2024 Refill Elba Bae [facility] Internal Medicine - Family Medicine Start: 04-28-2024 Non-patient / Non-visit [facility] Work Phone: Start: 04-28-2024 End: 04-28-2024 [facility] Start: 04-23-2024 End: 04-23-2024 [facility] Comment on above: Hypomagnesemia (Prim fara Dx) Start: 04-21-2024 End: 04-21-2024 [facility] Start: 04-16-2024 End: 04-16-2024 [facility] Comment on above: Hypomagnesemia (Prim fara Dx) Start: 04-14-2024 End: 04-14-2024 [facility] Start: 04-09-2024 End: 04-09-2024 Refill Fernie G Furlong DO Work Phone: [facility] Internal [facility] - Family Medicine Start: 04-09-2024 End: 04-09-2024 ambulatory FERNIE G [facility] Comment on above: Hypomagnesemia (Prim fara Dx) Start: 04-08-2024 End: 04-08-2024 [facility] Start: 04-02-2024 End: 04-02-[facility] Comment on above: Hypomagnesemia (Prim fara Dx) Start: 03-31-2024 End: 03-31-2024 Refill Fernie G Furlong DO Work Phone: [facility] Start: 03-31-2024 End: 03-31-2024 [facility] Start: 03-26-2024 End: 03-26-2024 [facility] Comment on above: Hypomagnesemia (Prim fara Dx) Start: 03-24-2024 End: 03-24-2024 [facility] Start: 03-19-2024 End: 03-19-2024 ambulatory FERNIE G [facility] Comment on above: Hypomagnesemia (Prim fara Dx) Start: 03-17-2024 End: 03-17-2024 Refill Fernie G Furlong DO Work Phone: [facility] Start: 03-17-2024 End: 03-17-2024 [facility] Start: 03-12-2024 End: 03-12-2024 ambulatory FERNIE G [facility] Comment on above: Hypomagnesemia (Prim fara Dx) Start: 03-10-2024 End: 03-10-2024 [facility] Start: 03-03-2024 End: 03-03-2024 [facility] Start: 02-25-2024 End: 02-25-2024 Office outpatient visit 15 minutes Fernie G Furlong DO Work Phone: [facility] Internal [facility] - Family Medicine Comment on above: Urinary incontinence , unspecified type (Primary Dx); Abnormality of gait and mobility Start: 02-25-2024 End: 02-25-2024 [facility] Start: 02-25-2024 End: 02-25-2024 Documentation procedure Millie Ireland [facility] Start: 02-25-2024 End: 02-25-2024 [facility] Start: 02-20-2024 End: 02-20-2024 Documentation procedure Americo Lira [facility] Start: 02-19-2024 End: 02-19-2024 Documentation procedure Americo Lira [facility] Start: 02-18-2024 End: 02-18-2024 [facility] Start: 02-13-2024 End: 02-13-2024 [facility] Comment on above: Hypomagnesemia (Prim fara Dx) Start: 02-11-2024 End: 02-11-2024 [facility] Start: 02-06-2024 End: 02-06-2024 [facility] Comment on above: Hypomagnesemia (Prim fara Dx) Start: 02-04-2024 End: 02-04-2024 [facility] Start: 02-04-2024 End: 02-04-2024 ambulatory Christian Curtis MD Facility:[facility] Start: 01-30-2024 End: 01-30-2024 [facility] Comment on above: Hypomagnesemia (Prim fara Dx) Start: 01-28-2024 End: 01-28-2024 [facility] Start: 01-23-2024 End: 01-23-2024 ambulatory [facility] Comment on above: Hypomagnesemia (Prim fara Dx) Start: 01-21-2024 End: 01-21-[address] [facility] Start: 01-21-2024 End: 01-21-2024 ambulatory Christian Curtis MD Facility:[facility] Start: 01-17-2024 Orders Only Fernie noguera DO Work Phone: [facility] Comment on above: Hypertension 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 ([facility]) (Primary Dx) Start: 01-16-2024 End: 01-16-2024 ambulatory [facility] Comment on above: Hypomagnesemia (Prim fara Dx) Start: 01-14-2024 End: 01-14-2024 [facility] Start: 01-09-2024 End: 01-09-2024 [facility] Comment on above: Hypomagnesemia (Prim fara Dx) Start: 01-08-2024 End: 01-08-2024 Patient encounter procedure Fernie Clark DO Work Phone: [facility] Internal Medicine - Family Medicine Comment on above: Medicare annual well ness visit, subsequent (Primary Dx); Screening for depression Start: 01-08-2024 End: 01-08-2024 [facility] Start: 01-07-2024 End: 01-07-2024 [facility] Start: 01-02-2024 End: 01-11-2024 [facility] Comment on above: Hypomagnesemia (Prim fara Dx) Start: 12-31-2023 End: 12-31-2023 [facility] Start: 12-26-2023 End: 12-26-2023 [facility] Comment on above: Hypomagnesemia (Prim fara Dx) Start: 12-24-2023 End: 12-24-2023 [facility] Start: 12-19-2023 End: 12-19-2023 [facility] Comment on above: Hypomagnesemia (Prim fara Dx) Start: 12-17-2023 End: 12-17-2023 [facility] Start: 12-12-2023 End: 12-12-2023 ambulatory [facility] Comment on above: Hypomagnesemia (Prim fara Dx) Start: 12-11-2023 Refill Theresa Dhaval JEANNE [facility] - [facility] Start: 12-10-2023 End: 12-10-2023 [facility] Start: 12-07-2023 Orders Only Fernie Molinalo ng DO Work Phone: [facility] Start: 12-05-2023 Telephone encounter [facility] Start: 12-05-2023 End: 12-05-2023 ambulatory [facility] Comment on above: Hypomagnesemia (Prim fara Dx) Start: 12-04-2023 Refill Fernie Molinalo ng DO Work Phone: [facility] Start: 12-03-2023 End: 12-03-2023 [facility] Start: 11-28-2023 End: 11-28-2023 [facility] Comment on above: Hypomagnesemia (Prim fara Dx) Start: 11-26-2023 End: 11-26-2023 [facility] Start: 11-26-2023 End: 11-26-2023 Office outpatient visit 25 minutes Fernie Molinalong DO Work Phone: [facility] Comment on above: Hypertension 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 [facility] ([facility]); Mixed hyperlipidemia; Hypomagnesemia; 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; Morbid obesity ([facility]); Chronic obstructive pulmonary disease, unspecified COPD type ([facility]) Start: 11-26-2023 End: 11-26-2023 ambulatory FERNIE CLARK [facility] Start: 11-26-2023 End: 11-26-2023 ambulatory FERNIE CLARK [facility] Start: 11-21-2023 End: 11-21-2023 [facility] Comment on above: Hypomagnesemia (Prim fara Dx) Mixed hyperlipidemia (Primary Dx); Type 2 diabetes mellitus with stage 3b chronic kidney disease, with long-term current use of insulin ([facility]); Essential hypertension Start: 11-20-2023 Chart abstracting Felicity Merritt [facility] - Medical Oncology Start: 11-19-2023 End: 11-19-2023 ambulatory [facility] Comment on above: Hypomagnesemia (Prim fara Dx) Start: 11-16-2023 End: 11-16-2023 ambulatory DO Fernie Clark Work Phone: [facility] Work Phone: Start: 11-16-2023 End: 11-16-2023 Discharged Recurring DO Fernie Clark Work Phone: [facility]-Infusion Therapy - O/P Work Phone: Start: 11-12-2023 Refill Fernie noguera DO Work Phone: [facility] Start: 08-23-2023 End: 08-23-2023 ambulatory Gia Munoz Other [employer] Other Start: 08-23-2023 Office outpatient vi sit 25 minutes Gia Munoz [facility] [place] Start: 06-15-[address] FERNIE CLARK Fac ility:[facility] Start: 01-25-2023 End: 01-26-[address] LUISA [place] . [employer] Other Start: 01-25-2023 Office outpatient vi sit 25 minutes Gia Tammy [facility] [place] Start: 01-15-2023 End: 01-16-2023 ambulatory GIA TAMMY Facility:[facility] Start: 12-06-2022 End: 12-06-2022 ambulatory [facility] Start: 11-09-2022 End: 11-10-[address] FERNIE CLARK Facility:[facility] Start: 10-26-2022 End: 10-27-[address] LUISA ST[place] . Facility:[facility] Start: 08-02-2022 End: 08-03-[address] LUISA STERN . Facility:[facility] Start: 07-20-2022 End: 07-20-2022 ambulatory Gia Tammy Other [employer] Other Start: 07-20-2022 Office outpatient vi sit 25 minutes Gia Tammy [facility] Start: 07-12-2022 End: 07-13-2022 ambulatory GIA TAMMY Facility:[facility] Start: 05-03-2022 End: 05-03-2022 ambulatory Gia Tammy Other [employer] Other Start: 05-03-2022 Telephone encounter Gia Tammy [facility] Start: 04-25-2022 End: 04-26-[address] LUISA STERN . Facility:[facility] Start: 04-06-2022 End: 04-06-2022 ambulatory Gia Tammy Other [employer] Other Start: 04-06-2022 Office outpatient vi sit 25 minutes Gia Tammy [facility] [place] Start: 03-30-2022 End: 03-31-2022 ambulatory GIA TAMMY Facility:[facility] Start: 03-30-2022 End: 03-31-[address] LUISA STERN . Facility: Start: 12-27-2021 End: 12-27-2021 ambulatory Gia Tammy Other [employer] Other Start: 12-27-2021 Office outpatient vi sit 15 minutes Gia Tammy [facility] Start: 11-28-2021 End: 11-28-2021 ambulatory Gia Tammy Other [employer] Other Start: 11-28-2021 Telephone encounter Gia Tammy [facility] Start: 11-24-2021 End: 11-24-2021 ambulatory Gia Tammy Other [employer] Other Start: 11-24-2021 Telephone encounter Gia Tammy [facility] Start: 03-30-2021 End: 03-31-2021 ambulatory EHAB Dino PARHAM Facility:[facility] Procedures Date Procedure Procedure Detail Performing Clinician Start: 05-27-2024 Urnls dip stick/tabl et rgnt non-auto w/o micrscp Fernie Clark DO Work Phone: Start: 05-27-2024 Hemoglobin glycosyla jessica a1c Fernie Clark DO Work Phone: Start: 05-27-2024 Follow-up visit Follow-up FERNIE CLARK Start: 05-27-2024 Adult depression scr eening assessment Fernie Clark DO Work Phone: Start: 02-25-2024 Adult depression scr eening assessment Millie Hernandez RN Start: 01-08-2024 Adult depression scr eening assessment Fernie Clark DO Work Phone: Start: 11-26-2023 Adult depression scr eening assessment Fernie Clark DO Work Phone: Start: 11-16-2023 MULTIPLE LABS Not In Sy stem Ref Prov Start: 10-18-2023 Adult depression scr eening assessment Fernie Clark DO Work Phone: Plan of Treatment Date Care Activity Detail Author Start: 09-30-2028 DTaP,Tdap and Td Vaccines (2 - Td or Tdap) DTaP,Tdap and Td Vaccines (2 - Td or Tdap) [facility] Start: 11-04-2025 Fall Risk Screening Fall Risk Screening [facility] Start: 10-07-2025 Fall Risk Screening Fall Risk Screening [facility] Start: 09-26-2025 Tobacco Screening Tobacco Screening [facility] Start: 08-27-2025 Adult BMI Screening Adult BMI Screening [facility] Start: 08-27-2025 Fall Risk Screening Fall Risk Screening [facility] Start: 08-20-2025 Adult BMI Screening Adult BMI Screening [facility] Start: 08-13-2025 Adult BMI Screening Adult BMI Screening [facility] Start: 08-06-2025 Tobacco Screening Tobacco Screening [facility] Start: 07-30-2025 Adult BMI Screening Adult BMI Screening [facility] Start: 07-30-2025 Tobacco Screening Tobacco Screening [facility] Start: 07-23-2025 Adult BMI Screening Adult BMI Screening [facility] Start: 07-16-2025 Adult BMI Screening Adult BMI Screening [facility] Start: 07-16-2025 Tobacco Screening Tobacco Screening [facility] Start: 07-09-2025 Adult BMI Screening Adult BMI Screening [facility] Start: 07-02-2025 Adult BMI Screening Adult BMI Screening [facility] Start: 06-25-2025 Adult BMI Screening Adult BMI Screening [facility] Start: 06-25-2025 Tobacco Screening Tobacco Screening [facility] Start: 06-18-2025 Adult BMI Screening Adult BMI Screening [facility] Start: 06-18-2025 Tobacco Screening Tobacco Screening [facility] Start: 06-11-2025 Adult BMI Screening Adult BMI Screening [facility] Start: 06-11-2025 Tobacco Screening Tobacco Screening [facility] Start: 06-04-2025 Adult BMI Screening Adult BMI Screening [facility] Start: 06-04-2025 Tobacco Screening Tobacco Screening [facility] Start: 05-28-2025 Adult [facility] Start: 05-28-2025 Tobacco Screening [facility] Start: 05-27-2025 Adult BMI Screening [facility] Start: 05-27-2025 Depression Screening [facility] Screening [facility] Start: 05-27-2025 Tobacco Screening [facility] Scre[facility] Start: 05-14-2025 Adult BMI Screening Adult [facility] Screening [facility] Start: 05-14-2025 Tobacco Screening [facility] Scre[facility] Start: 05-07-2025 Adult BMI Screening Adult [facility] Start: 05-07-2025 Fall Risk Screening Fall [facility] Start: 05-07-2025 Tobacco Screening [facility] Screening [facility] Start: 04-30-2025 Adult BMI Screening Adult [facility] Screening [facility] Start: 04-30-2025 Tobacco Screening [facility] Screening [facility] Start: 04-23-2025 Adult BMI Screening Adult [facility] Screening [facility] Start: 04-23-2025 Tobacco Screening Tobacco Screening [facility] Start: 04-09-2025 Adult BMI Screening Adult BMI Screening [facility] Start: 04-09-2025 Tobacco Screening [facility] Screening [facility] Start: 04-02-2025 Adult BMI Screening Adult [facility] Screening [facility] Start: 04-02-2025 Tobacco Screening [facility] Screening [facility] Start: 03-26-2025 Adult BMI Screening Adult [facility] Screening [facility] Start: 03-26-2025 Tobacco Screening Tobacco Screening [facility] Start: 03-19-2025 Adult BMI Screening Adult [facility] Screening [facility] Start: 03-19-2025 Tobacco Screening [facility] Screening [facility] Start: 03-12-2025 Adult BMI Screening Adult [facility] Screening [facility] Start: 02-24-2025 Depression Screening [facility] Screening [facility] Start: 02-24-2025 Fall Risk Screening Fall [facility] Screening [facility] Start: 02-24-2025 Tobacco Screening Tobacco Screening [facility] Start: 02-12-2025 Adult BMI Screening Adult [facility] Screening [facility] Start: 02-12-2025 Tobacco Screening [facility] Screening [facility] Start: 02-05-2025 Adult BMI Screening Adult BMI Screening [facility] Start: 02-05-2025 Tobacco Screening Tobacco Screening [facility] Start: 01-29-2025 Adult BMI Screening Adult BMI Screening [facility] Start: 01-29-2025 Tobacco Screening Tobacco Screening [facility] Start: 01-22-2025 Adult BMI Screening Adult BMI Screening [facility] Start: 01-22-2025 Tobacco Screening Tobacco Screening [facility] Start: 01-15-2025 Adult BMI Screening Adult BMI Screening [facility] Start: 01-13-2025 End: 01-13-2025 Patient encounter procedure 01/13/2025 12:40 PM EST Of fice Visit [facility] Internal Medicine - Family Medicine [address] [place] [phone] [facility] - [facility] Start: 01-09-2025 Adult BMI Screening Adult BMI Screening [facility] Start: 01-09-2025 Tobacco Screening Tobacco Screening [facility] Start: 01-08-2025 Depression Screening Depression Screening [facility] Start: 01-08-2025 Fall Risk Screening Fall Risk Screening [facility] Start: 01-08-2025 Medicare Annual Wellness Visit Medicare Annual Wellness Visi t [facility] Start: 01-02-2025 Tobacco Screening Tobacco Screening [facility] Start: 12-26-2024 Adult BMI Screening Adult BMI Screening [facility] Start: 12-26-2024 Tobacco Screening Tobacco Screening [facility] Start: 12-19-2024 Adult BMI Screening Adult BMI Screening [facility] Start: 12-19-2024 Tobacco Screening Tobacco Screening [facility] Start: 12-15-2024 End: 12-15-2024 Patient encounter procedure 12/15/2024 12:30 PM EST Procedure visit [facility] [address] [place] [address] Ton Urbano MD [address] [place] [address] [facility] Start: 12-12-2024 Adult BMI Screening Adult BMI Screening [facility] Start: 12-10-2024 End: 12-10-2024 ambulatory 12/10/2024 9:30 AM EST Infusion Elida Ireland [facility] - Medical Oncology [address] [place] [phone] Elida Ireland [facility] Start: 12-05-2024 Adult BMI Screening Adult BMI Screening [facility] Start: 12-05-2024 Tobacco Screening Tobacco Screening [facility] Start: 12-04-2024 End: 12-04-2024 Patient encounter procedure 12/04/2024 1:30 PM EST Off ice Visit [facility] [address] [place] [address] Fernie Clark, [address], [place] [address] [facility] Start: 12-03-2024 End: 12-03-2024 ambulatory 12/03/2024 9:30 AM EST Infusion Elida Ireland [facility] Medical Oncology [address] [place] [phone] [address] [facility] Start: 11-28-2024 Adult BMI Screening Adult BMI Screening [facility] Start: 11-28-2024 Tobacco Screening Tobacco Screening [facility] Start: 11-27-2024 End: 11-27-2024 Patient encounter procedure 11/27/2024 1:00 PM EST Off ice Visit [facility] [address] [place] [phone] Fernie Clark DO [address], [place] [address] [facility] Start: 11-26-2024 Adult BMI Screening Adult BMI Screening [facility] Start: 11-26-2024 Depression Screening Depression Screening [facility] Start: 11-26-2024 Fall Risk Screening Fall Risk Screening [facility] Start: 11-26-2024 Tobacco Screening Tobacco Screening [facility] Start: 11-26-2024 End: 11-26-2024 ambulatory 11/26/2024 9:30 AM EST Infusion Elida L Beka [facility] - [facility] On[facility] [address] [place] [phone] Elida L Beka [facility] Start: 11-21-2024 Adult BMI Screening Adult BMI Screening [facility] Start: 11-20-2024 Bacteria identified in Urine by Culture Urine Culture [facility] Start: 11-20-2024 Urine culture [facility] Start: 11-18-2024 End: 11-18-2024 ambulatory 11/18/2024 11:30 AM EST Infusion Elida L Beka [facility] [address] [place] [phone] Elida L Beka [facility] Start: 11-11-2024 End: 11-11-2024 ambulatory 11/11/2024 9:30 AM EST Infusion Elida L Beka [facility] [address] [place] [phone] Elida L Beka [facility] Start: 11-04-2024 End: 11-04-2024 ambulatory 11/04/2024 9:30 AM EST Infusion Elida L Beka [facility] [address] [place] [phone] Elida L Beka [facility] Start: 10-29-2024 End: 10-29-2024 ambulatory 10/29/2024 9:30 AM EST Infusion Elida L Beka [facility] [address] [place] [phone] Elida René Beka [facility] Start: 10-22-2024 End: 10-22-2024 ambulatory 10/22/2024 9:30 AM EST Infusion Elida René Beka [facility] [address] [place] [address] Elida L Beka [facility] Start: 10-20-2024 Subsequent hospital visit by physician 10/20/2024 11:33 AM EST Hospital Encounter [facility] [address] [place] [address] Hypomagnesemia [facility] Comment on above: Hypomagnesemia Start: 10-18-2024 Adult BMI Screening Adult BMI Screening [facility] Start: 10-18-2024 Depression Screening Depression Screening [facility] Start: 10-18-2024 Tobacco Screening Tobacco Screening [facility] Start: 10-15-2024 End: 10-15-2024 ambulatory 10/15/2024 9:30 AM EST Infusion Elida Merritt Beka [facility] [address] [place] [phone] Elida L Beka [facility] Start: 10-08-2024 End: 10-08-2024 ambulatory 10/08/2024 9:30 AM EST Infusion Elida Merritt Beka [facility] [address] [place] [phone] Elida Merritt Beka [facility] Start: 10-07-2024 End: 10-07-2024 ambulatory 10/07/2024 9:30 AM EST Infusion Elida Merritt Beka [facility] [address] [place] [phone] Elida L Beka [facility] Start: 10-01-2024 End: 10-01-2024 ambulatory 10/01/2024 9:30 AM EST Infusion Elida Merritt Beka [facility] [address] [place] [phone] Elida L Beka [facility] Start: 09-26-2024 End: 09-26-2024 Admission to same day surgery center 09/26/2024 12:30 PM EST - 09/26/2024 1:30 PM EST Surgery [facility] Endoscopy [address] [place] [id number] Daniel Guerrero, DO [address] [place] [address] ESOPHAGOGASTRODUODENOSCOPY DIAGNOSTIC [20973 (CPT )] [facility] Comment on above: ESOPHAGOGASTRODUODENOSCOPY DIAGNOSTIC [4 3235 (CPT )] Start: 09-26-2024 End: 09-26-2024 Esophagogastroduodenoscopy transoral diagnostic ESOPHAGOGASTRODUODENOSCOPY DIAGNOSTIC ross's esophagus 09/26/2024 12:30 PM EST [facility] Start: 09-26-2024 Subsequent hospital visit by physician 09/26/2024 12:30 PM EST Hospital Encounter [facility] Endoscopy [address] [place] [id number] Daniel Guerrero, DO [address] [place] [address] [facility] End[facility] Start: 09-25-2024 End: 09-25-2024 ambulatory 09/25/2024 3:40 PM EST Suppo rt Visit [facility] - Pre Admit [address] [place] [phone] [facility] - Pre Admit Start: 09-24-2024 End: 09-24-2024 ambulatory 09/24/2024 9:30 AM EST Infusion Elida Ireland [facility] [address] [place] [phone] Elida Ireland [facility] Start: 09-17-2024 End: 09-17-2024 ambulatory 09/17/2024 9:30 AM EST Infusion Elida Ireland [facility] [address] [place] [phone] Elida Ireland [facility] Start: 09-10-2024 End: 09-10-2024 ambulatory 09/10/2024 9:30 AM EDT Infusion Elida L Beka [facility] [address] [place] [address] Elida L Beka [facility] Start: 09-03-2024 End: 09-03-2024 ambulatory 09/03/2024 9:30 AM EDT Infusion Elida L Beka [facility] [address] [place] [address] Elida L Beka [facility] Start: 08-27-2024 End: 08-27-2024 ambulatory 08/27/2024 9:30 AM EDT Infusion Elida L Beka [facility] [address] [place] [phone] Elida L Beka [facility] Start: 08-20-2024 End: 08-20-2024 ambulatory 08/20/2024 9:30 AM EDT Infusion Elida L Beka [facility] [address] [place] [phone] Elida L Beka [facility] Start: 08-13-2024 End: 08-13-2024 ambulatory 08/13/2024 9:30 AM EDT Infusion Elida L Beka [facility] [address] [place] [phone] Elida L Beka [facility] Start: 08-06-2024 End: 08-06-2024 ambulatory 08/06/2024 9:30 AM EDT Infusion Elida L Beka [facility] [address] [place] [phone] Elida René Beka [facility] Start: 07-30-2024 End: 07-30-2024 ambulatory 07/30/2024 9:30 AM EDT Infusion Elida René Beka [facility] [address] [place] [phone] Elida Ireland [facility] Start: 07-24-2024 Fall Risk Screening Fall Risk Screening [facility] Start: 07-23-2024 End: 07-23-2024 ambulatory 07/23/2024 9:30 AM EDT Infusion Elida Ireland [facility] [address] [place] [address] Elida Ireland [facility] Start: 07-16-2024 End: 07-16-2024 ambulatory 07/16/2024 9:30 AM EDT Infusion Elida Ireland [facility] [address] [place] [phone] Elidarudolph Ireland [facility] Start: 07-13-2024 COVID-19 Vaccine ( season) COVID-19 Vaccine () [facility] Start: 07-13-2024 COVID-19 Vaccine () COVID-19 Vaccine () [facility] Start: 07-09-2024 End: 07-09-2024 ambulatory 07/09/2024 9:30 AM EDT Infusion Elida Ireland [facility] [address] [place] [phone] Elida Ireland [facility] Start: 07-02-2024 End: 07-02-2024 ambulatory 07/02/2024 9:30 AM EDT Infusion Elida Ireland [facility] [address] [place] [phone] Elida L Dooly [facility] Start: 06-25-2024 End: 06-25-2024 ambulatory 06/25/2024 9:30 AM EDT Infusion Elidarudolph Ireland [facility] [address] [place] [phone] Elida L Beka [facility] Start: 06-18-2024 End: 06-18-2024 ambulatory 06/18/2024 9:30 AM EDT Infusion Elida Ireland [facility] Critical access hospital[address] [place] [address] Eliad Ireland [facility] Start: 06-11-2024 End: 06-11-2024 ambulatory 06/11/2024 9:30 AM EDT Infusion Elida Ireland [facility] [address] [place] [phone] Elida Ireland [facility] Start: 06-04-2024 End: 06-04-2024 ambulatory 06/04/2024 9:30 AM EDT Infusion Elida Ireland [facility] [address] [place] [phone] Elida Ireland [facility] Start: 05-28-2024 End: 05-28-2024 ambulatory 05/28/2024 9:30 AM EDT Infusion Elida Ireland [facility] [address] [place] [phone] Elida Ireland [facility] Start: 05-27-2024 End: 05-27-2024 Patient encounter procedure 05/27/2024 1:30 PM EDT Off ice Visit [facility] [address] [place] [address] Fernie Clark, DO [address], [place] [address] [facility] Start: 05-21-2024 End: 05-21-2024 ambulatory 05/21/2024 9:30 AM EDT Infusion Elida Ireland [facility] [address] [place] [phone] Elida Ireland [facility] Start: 05-14-2024 End: 05-14-2024 ambulatory 05/14/2024 9:30 AM EDT Infusion Elida Ireland [facility] [address] [place] [address] [place] [phone] Elida L Beka [facility] Start: 05-07-2024 End: 05-07-2024 ambulatory 05/07/2024 9:30 AM EDT Infusion Elida René Beka [facility] [address] [place] [address] Elida Ireland [facility] Start: 04-30-2024 End: 04-30-2024 ambulatory 04/30/2024 9:30 AM EDT Infusion Elida L Beka [facility] [address] [place] [phone] Elida Ireland [facility] Start: 04-23-2024 End: 04-23-2024 ambulatory 04/23/2024 9:30 AM EDT Infusion Elida René Beka [facility] [address] [place] [phone] Elida René Beka [facility] Start: 04-16-2024 End: 04-16-2024 ambulatory 04/16/2024 9:30 AM EDT Infusion Elida Ireland [facility] [address] [place] [phone] Elida Ireland [facility] Start: 04-09-2024 End: 04-09-2024 ambulatory 04/09/2024 9:30 AM EDT Infusion Elida Ireland [facility] [address] [place] [phone] Elida René Beka [facility] Start: 04-02-2024 End: 04-02-2024 ambulatory 04/02/2024 9:30 AM EDT Infusion Elida Ireland [facility] [address] [place] [phone] Elida Ireland [facility] Start: 03-26-2024 End: 03-26-2024 ambulatory 03/26/2024 9:30 AM EDT Infusion Elida Ireland [facility] [address] [place] [phone] Elida Ireland [facility] Start: 03-19-2024 End: 03-19-2024 ambulatory 03/19/2024 9:30 AM EDT Infusion Elida Ireland [facility] [address] [place] [phone] Elida Ireland [facility] Start: 03-05-2024 End: 03-05-2024 ambulatory 03/05/2024 9:30 AM EDT Infusion Elida Ireland [facility] [address] [place] [phone] Elida Ireland [facility] Start: 02-27-2024 End: 02-27-2024 ambulatory 02/27/2024 9:30 AM EDT Infusion Elida Ireland [facility] [address] [place] [phone] [address] [facility] Start: 02-25-2024 End: 02-25-2024 Patient encounter procedure 02/25/2024 2:45 PM EDT Off ice Visit [facility] [address] [place] [address] Fernie Clark, DO [address], [facility] [place] [address] [facility] Start: 02-20-2024 End: 02-20-2024 ambulatory 02/20/2024 9:30 AM EDT Infusion Elida Ireland [facility] [address] [place] [phone] Elida Ireland [facility] Start: 02-13-2024 End: 02-13-2024 ambulatory 02/13/2024 9:30 AM EDT Infusion Elida Ireland [facility] [address] [place] [phone] Elida Ireland [facility] Start: 02-06-2024 End: 02-06-2024 ambulatory 02/06/2024 9:30 AM EDT Infusion Elida Ireland [facility] [address] [place] [address] Elida Ireland [facility] Start: 01-30-2024 End: 01-30-2024 ambulatory 01/30/2024 9:30 AM EDT Infusion Elida Ireland [facility] [address] [place] [address] Elida Ireland [facility] Start: 01-23-2024 End: 01-23-2024 ambulatory 01/23/2024 9:30 AM EDT Infusion Elida Ireland [facility] [address] [place] [phone] Elida Ireland [facility] Start: 01-16-2024 End: 01-16-2024 ambulatory 01/16/2024 9:30 AM EST Infusion Elida Ireland [facility] [address] [place] [phone] Elida Ireland [facility] Start: 01-09-2024 End: 01-09-2024 ambulatory 01/09/2024 9:30 AM EST Infusion Elida Ireland [facility] [address] [place] [phone] Elida Ireland [facility] Start: 01-08-2024 End: 01-08-2024 Patient encounter procedure 01/08/2024 1:00 PM EST Off ice Visit [facility] [address] [place] [address] [facility] Start: 01-02-2024 End: 01-02-2024 ambulatory 01/02/2024 9:30 AM EST Infusion Elida Ireland [facility] [address] [place] [phone] Elida Ireland [facility] Start: 12-26-2023 End: 12-26-2023 ambulatory 12/26/2023 9:30 AM EST Infusion Elida Ireland [facility] Critical access hospital0 [place] [address] Elida Ireland [facility] Start: 12-19-2023 End: 12-19-2023 ambulatory 12/19/2023 9:30 AM EST Infusion Elida Ireland [facility] [address] [place] [phone] Elida Ireland [facility] Start: 12-12-2023 Administration of varicella zoster vaccine Zoster (Shingles) Vaccine (1 of 2) [facility] Comment on above: Postponed from 03/12/2015 (Patient Refus ed) Start: 12-12-2023 Medicare Annual Wellness Visit Medicare Annual Wellness Visi t [facility] Start: 12-12-2023 End: 12-12-2023 ambulatory 12/12/2023 9:30 AM EST Infusion Elida Ireland [facility] [address] [place] [phone] Elida Ireland [facility] Start: 12-05-2023 End: 12-05-2023 ambulatory 12/05/2023 9:30 AM EST Infusion Elida Ireland [facility] [address] [place] [phone] Elida Ireland [facility] Start: 11-28-2023 End: 11-28-2023 ambulatory 11/28/2023 9:30 AM EST Infusion Elida Ireland [facility] [address] [place] [phone] Elida Ireland [facility] Start: 11-26-2023 End: 11-26-2023 Patient encounter procedure 11/26/2023 1:30 PM EST [facility] [address] [place] [address] Fernie Clark, DO [address] [facility], [place] [address] [facility] Start: 11-21-2023 End: 11-21-2023 ambulatory 11/21/2023 9:30 AM EST Infusion Elida Ireland [facility] [address] [place] [phone] Elida Ireland [facility] Start: 07-13-2023 COVID-19 Vaccine ( season) COVID-19 Vaccine ( season) [facility] Start: 03-12-2015 Administration of varicella zoster vaccine Zoster (Shingles) Vaccine (1 of 2) [facility] Start: 1958 Adult BMI Follow Up Plan Adult BMI Follow Up Plan [facility] [employer] End: 05-27-2025 Bacteria identified in Urine by Culture Urine culture (clean catch) Microbiology Routine Dysuria 1 Occurrences starting 05/27/2024 until 05/27/2025 [employer] Work Phone: Comment on above: 1 Occurrences starting 05/27/2024 until 05/27/2025 End: 11-21-2024 Comprehensive metabolic 2000 panel - Serum or Plasma Comprehensive metabolic panel Lab Routine Essential hypertension 1 Occurrences starting 11/21/2023 until 11/21/2024 [employer] Work Phone: Comment on above: 1 Occurrences starting 11/21/2023 until 11/21/2024 End: 09-04-2025 EMG EMG Neurology Routine Paresthesia of right lower extremity 1 Occurrences starting 09/04/2024 until 09/04/2025 [employer] Work Phone: Comment on above: 1 Occurrences starting 09/04/2024 until 09/04/2025 End: 09-04-2025 Esophagogastroduodenoscopy EGD GI Routine Ross's esophagus with dysplasia 1 Occurrences starting 09/04/2024 until 09/04/2025 [facility] Comment on above: 1 Occurrences starting 09/04/2024 until 09/04/2025 Esophagogastroduoden oscopy transoral diagnostic ESOPHAGOGASTRODUODENOSCOPY DIAGNOSTIC 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 [facility] End: 11-21-2024 Hemoglobin A1c/Hemoglobin.total in Blood Hemoglobin A1c Lab Routine Type 2 diabetes mellitus with stage 3b chronic kidney disease, with long-term current use of insulin ([facility]) 1 Occurrences starting 11/21/2023 until 11/21/2024 [facility] Comment on above: 1 Occurrences starting 11/21/2023 until 11/21/2024 End: 11-21-2024 Lipid panel Lipid panel Lab Routine Mixe d hyperlipidemia 1 Occurrences starting 11/21/2023 until 11/21/2024 [facility] Comment on above: 1 Occurrences starting 11/21/2023 until 11/21/2024 End: 11-18-2025 Magnesium [Mass/volume] in Serum or Plasma Magnesium Lab Routine Hypomagnesemia weekly for 52 Occurrences starting 11/18/2024 until 11/18/2025 [employer] Work Phone: Comment on above: weekly for 52 Occurrences starting 11/18 until 11/18/2025 End: 11-19-2024 Magnesium [Mass/volume] in Serum or Plasma Magnesium Lab STAT Hypomagnesemia weekly for 52 Occurrences starting 11/19/2023 until 11/19/2024 [employer] [facility] Work Phone: Comment on above: weekly for 52 Occurrences starting 11/19 until 11/19/2024 End: 11-21-2024 Microalbumin - Albumin: Creatinine Urine Ratio Microalbumin - Albumin: Creatinine Urine Ratio Lab Routine Type 2 diabetes mellitus with stage 3b chronic kidney disease, with long-term current use of insulin ([facility]) 1 Occurrences starting 11/21/2023 until 11/21/2024 [facility] Comment on above: 1 Occurrences starting 11/21/2023 until 11/21/2024 End: 01-16-2025 Potassium [Moles/volume] in Serum or Plasma Potassium Lab Routine 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 ([facility]) 1 Occurrences starting 01/17/2024 until 01/16/2025 [facility] Work Phone: Comment on above: 1 Occurrences starting 01/17/2024 until 01/16/2025 Renal function 2000 panel - Serum or Plasma [facility] Immunizations Immunization Date Immunization Notes Care Provider Yamil nieves 08-31-2021 Influenza, High-dose , Quadrivalent Fernie Furlong DO Work Phone: [facility] 02-01-2021 COVID-19, mRNA, LNP- S, PF, 30mcg/0.3mL Dose Fernie Furlong DO Work Phone: [facility] 01-10-2021 COVID-19, mRNA, LNP- S, PF, 30mcg/0.3mL Dose Fernie Furlong DO Work Phone: [facility] 07-29-2020 influenza, high dose seasonal, preservative-free Fernie Furlong DO Work Phone: [facility] 09-03-2019 influenza, high dose seasonal, preservative-free Fernie Furlong DO Work Phone: [facility] 09-30-2018 tetanus toxoid, redu kiran diphtheria toxoid, and acellular pertussis vaccine, adsorbed Fernie Furlong DO Work Phone: [facility] 09-19-2018 influenza, high dose seasonal, preservative-free Fernie Furlong DO Work Phone: [facility] 09-03-2017 influenza virus vacc ine, unspecified formulation Fernie Furlong DO Work Phone: [facility] 07-27-2015 influenza, seasonal, injectable, preservative free Fernie Furlong DO Work Phone: [facility] 07-27-2015 seasonal influenza, intradermal, preservative free Fernie Furlong DO Work Phone: [facility] 01-15-2015 zoster vaccine, live Fernie Furlong DO Work Phone: [facility] 01-15-2015 zoster vaccine, unspecified formulation Fernie Clark DO Work Phone: [facility] 07-16-2014 influenza, seasonal, injectable Fernie Clark DO Work Phone: [facility] 10-20-2013 pneumococcal conjuga te vaccine, 13 valent Fernie Clark DO Work Phone: [facility] 08-30-2011 tetanus and diphther ia toxoids, not adsorbed, for adult use Fernie Clark DO Work Phone: [facility] 08-20-2008 pneumococcal polysaccharide vaccine, 23 valent Fernie Clark DO Work Phone: [facility] Payers Date Payer Category Payer Unknown 11-12-2015 Managed Care Other (unspecified) [facility] [id number] 11-12-[address] [facility] AARP SUPPLEMENT [id number] 11/12/2015-Present [phone] [address] [place] [address] [id number] 09-12-2007 Medicare [id number] 11-12-1959 Medicare [id number] 11-12-1957 Unknown [id number] 1942 Unknown [id number] 2.16.840.1.408368.3.579.2 .647 1942 Unknown [id number] 2.16.840.1.547412.3.579.2 .593 1942 Unknown [id number] 2.16.840.1.719348.3.579.2 .593 1942 Unknown [id number] 2.16.840.1.256981.3.579.2 .593 1942 Unknown [id number] 2.16.840.1.125297.3.579.2 .593 1942 Unknown [id number] 2.16.840.1.585769.3.579.2 .593 1942 Unknown [id number] 2.16.840.1.907112.3.579.2 .593 1942 Unknown [id number] 2.16.840.1.023660.3.579.2 .593 1942 Unknown [id number] 2.16.840.1.118691.3.579.2 .593 1942 Unknown [id number] 2.16.840.1.904245.3.579.2 .593 1942 Unknown [id number] 2.16.840.1.903240.3.579.2 .593 1942 Unknown [id number] 2.16.840.1.124836.3.579.2 .593 1942 Unknown [id number] 2.16.840.1.944716.3.579.2 .1286 1942 Unknown [id number] 2.16.840.1.042302.3.579.2 .1286 1942 Unknown [id number] 2.16.840.1.844205.3.579.2 .1286 1942 Unknown [id number] 2.16.840.1.160078.3.579.2 .1286 1942 Unknown [id number] 2.16.840.1.461648.3.579.2 .1285 1942 Unknown [id number] 2.16.840.1.165341.3.579.2 .128 1942 Unknown [id number] 2.16.840.1.535046.3.579.2 .1285 1942 Unknown [id number] 2.16.840.1.486268.3.579.2 .1942 Unknown [id number] 2.16.840.1.693557.3.579.2 .1942 Unknown [id number] 2.16.840.1.356711.3.579.2 .1942 Unknown [id number] 2.16.840.1.881287.3.579.2 .1942 Unknown [id number] 2.16.840.1.622220.3.579.2 .1285 1942 Unknown [id number] 2.16.840.1.288211.3.579.2 .1285 1942 Unknown [id number] 2.16.840.1.238999.3.579.2 .1285 1942 Unknown [id number] 2.16.840.1.208710.3.579.2 .1285 1942 Unknown [id number] 2.16.840.1.138884.3.579.2 .1285 1942 Unknown [id number] 2.16.840.1.820683.3.579.2 .1285 1942 Unknown [id number] 2.16.840.1.272022.3.579.2 .1285 1942 Unknown [id number] 2.16.840.1.868119.3.579.2 .12823-1942 Unknown [id number] 2.16.840.1.547392.3.579.2 .1285 1942 Unknown [id number] 2.16.840.1.032414.3.579.2 .1285 1942 Unknown [id number] 2.16.840.1.481497.3.579.2 .1285 1942 Unknown [id number] 2.16840.1.661364.3.579.2 .1285 1942 Unknown [id number] 2.840.1.495867.3.579.2 .1285 1942 Unknown [id number] 2.840.1.250028.3.579.2 .1285 1942 Unknown [id number] 2.840.1.289372.3.579.2 .1285 1942 Unknown [id number] 2.840.1.354846.3.579.2 .1285 1942 Unknown [id number] 2.840.1.005530.3.579.2 .1285 1940 Unknown [id number] 2.840.1.718422.3.579.2 .1285 1942 Unknown [id number] 2.840.1.743430.3.579.2 .1285 1942 Unknown [id number] 2.16840.1.570369.3.579.2 .1285 1942 Unknown [id number] 2.16840.1.354609.3.579.2 .1285 1942 Unknown [id number] 2.16840.1.054818.3.579.2 .1285 1942 Unknown [id number] 2.16840.1.703064.3.579.2 .1285 1942 Unknown [id number] 2.16.840.1.082909.3.579.2 .1285 1942 Unknown [id number] 2.16.840.1.575324.3.579.2 .1285 1942 Unknown [id number] 2.16.840.1.526626.3.579.2 .1285 1942 Unknown [id number] 2.840.1.363274.3.579.2 .1285 1942 Unknown [id number] 2.840.1.085011.3.579.2 .1285 1942 Unknown [id number] 2.840.1.195380.3.579.2 .1285 1942 Unknown [id number] 2.840.1.950813.3.579.2 .1285 1942 Unknown [id number] 2.840.1.368956.3.579.2 .1285 1942 Unknown [id number] 2.840.1.484775.3.579.2 .1285 1942 Unknown [id number] 2.840.1.619722.3.579.2 .1285 1942 Unknown [id number] 2.840.1.797101.3.579.2 .1285 1942 Unknown [id number] 2.840.1.732100.3.579.2 .1285 1942 Unknown [id number] 2.16840.1.126065.3.579.2 .1285 1942 Unknown [id number] 2.16840.1.601602.3.579.2 .1285 1942 Unknown [id number] 2.840.1.869331.3.579.2 .1285 1942 Unknown [id number] 2.16.840.1.856440.3.579.2 .1285 1942 Unknown [id number] 2.16.840.1.216319.3.579.2 .1285 1942 Unknown [id number] 2.16.840.1.294546.3.579.2 .1285 1942 Unknown [id number] 2.16.840.1.112979.3.579.2 .1285 1942 Unknown [id number] 2.16.840.1.261897.3.579.2 .1285 1942 Unknown [id number] 2.16840.1.595504.3.579.2 .1285 1942 Unknown [id number] 2.840.1.894046.3.579.2 .1285 1942 Unknown [id number] 2.16.840.1.738238.3.579.2 .1285 1942 Unknown [id number] 2..840.1.800650.3.579.2 .1285 1942 Unknown [id number] 2.16.840.1.359794.3.579.2 .1285 1942 Unknown [id number] 2.16.840.1.953137.3.579.2 .1285 1942 Unknown [id number] 2.16.840.1.947879.3.579.2 .1285 1942 Unknown [id number] 2.16.840.1.260899.3.579.2 .1285 1942 Unknown [id number] 2.16.840.1.776108.3.579.2 .1285 1942 Unknown [id number] 2.16.840.1.834599.3.579.2 .1285 1942 Unknown [id number] 2.16.840.1.686044.3.579.2 .128 1942 Unknown [id number] 2.16.840.1.793652.3.579.2 .1285 1942 Unknown [id number] 2.16.840.1.806387.3.579.2 .1285 1942 Unknown [id number] 2.16.840.1.083431.3.579.2 .1285 1942 Unknown [id number] 2.16.840.1.162752.3.579.2 .1285 1942 Unknown [id number] 2.16.840.1.461732.3.579.2 .1285 1942 Unknown [id number] 2.16.840.1.245124.3.579.2 .1285 1942 Unknown [id number] 2.16840.1.956472.3.579.2 .1285 1942 Unknown [id number] 2.16.840.1.245791.3.579.2 .1285 1942 Unknown [id number] 2.16.840.1.554139.3.579.2 .1285 1942 Unknown [id number] 2.16.840.1.706591.3.579.2 .1285 1942 Unknown [id number] 2.16.840.1.524211.3.579.2 .1285 1942 Unknown [id number] 2.16.840.1.693900.3.579.2 .1285 1942 Unknown [id number] 2.16.840.1.628531.3.579.2 .1285 1942 Unknown [id number] 2.16.840.1.598830.3.579.2 .1285 1942 Unknown [id number] 2.16.840.1.132246.3.579.2 .1285 1942 Unknown [id number] 2.16.840.1.496038.3.579.2 .1285 1942 Unknown [id number] 2.16.840.1.732482.3.579.2 .1285 1942 Unknown [id number] 2.16.840.1.187787.3.579.2 .1285 1942 Unknown [id number] 2.16.840.1.599191.3.579.2 .1285 1942 Unknown [id number] 2.16.840.1.010215.3.579.2 .1285 1942 Unknown [id number] 2.16.840.1.070038.3.579.2 .1285 1942 Unknown [id number] 2.16.840.1.366830.3.579.2 .1285 1942 Unknown [id number] 2.16.840.1.117647.3.579.2 .1285 1942 Unknown [id number] 2.16.840.1.322519.3.579.2 .1285 1942 Unknown [id number] 2.16.840.1.532459.3.579.2 .1285 1942 Unknown [id number] 2.16840.1.870050.3.579.2 .1285 1942 Unknown [id number] 2.16.840.1.989634.3.579.2 .1285 1942 Unknown [id number] 2.16.840.1.255940.3.579.2 .1285 1942 Unknown [id number] 2.16.840.1.706504.3.579.2 .1285 1942 Unknown [id number] 2.16.840.1.186875.3.579.2 .1285 1942 Unknown [id number] 2.16.840.1.932640.3.579.2 .1286 1942 Unknown [id number] 2.16.840.1.752853.3.579.2 .1286 1942 Unknown [id number] 2.16.840.1.081354.3.579.2 .1286 1942 Unknown [id number] 2.16.840.1.009978.3.579.2 .1286 1942 Unknown [id number] 2.16.840.1.509125.3.579.2 .1286 1942 Unknown [id number] 2.16.840.1.524003.3.579.2 .1286 1942 Unknown [id number] 2.16.840.1.548732.3.579.2 .1286 1942 Unknown [id number] 2.16.840.1.586703.3.579.2 .1286 1942 Unknown [id number] 2.16.840.1.645990.3.579.2 .1286 1942 Unknown [id number] 2.16.840.1.451298.3.579.2 .1286 Private Health Insurance [employer] [facility] [id number] Self-pay Self Pay [id number] Social History Date Type Detail Facility Unknown if ever smoked [employer] Other Start: 01-08-2024 End: 08-06-2024 Sex Assigned At [facility] [employer] Start: 1940 Sex Assigned At Female [facility] Start: 05-04-2017 End: 05-01-2024 Tobacco smoking status NHIS Never smoked tobacco (finding) [facility] Start: 05-04-2017 Tobacco use and exposure Smokeless tobacco non-user [facility] Start: 09-26-2024 End: 09-30-2024 Alcoholic beverage intake Ex-drinker (finding) [facility] Start: 01-08-2024 End: 08-06-2024 History of Social function [facility] Has the [employer], or [employer] threatened to shut off services in your home in past 12Mo No [facility] Are you now , , , , never or living with a partner? [facility] How often to you hav e a drink containing alcohol? Never [facility] How many standard drinks containing alcohol do you have on a typical day? Patient does not drink [facility] Do you feel stress - tense, restless, nervous, or anxious, or unable to sleep at night because your mind is troubled all the time - these days [OSQ] Not at all [facility] Start: 1940 Sex assigned at Not on file P [facility] Start: 06-17-2015 End: 11-21-2024 Sex Female (finding) [facility] Start: 10-18-2023 End: 09-10-2024 Alcohol intake Current drinker of alcohol (finding) [facility] Medical Equipment Procedure Code Equipment Code Equipment Origin al Text Equipment Identifier Dates 1 strip by other route in the morning and 1 strip before bedtime. [id number] Start: 08-30-2023 End: 11-18-2024 1 Lancet. by miscellaneous route in the morning and 1 Lancet. before bedtime. [id number] Start: 08-30-2023 USE 1 NEEDLE THR EE TIMES A DAY [id number] Start: 07-17-2024 1 strip by other route in the morning and 1 strip before bedtime. [id number] Start: 11-18-2024 USE 1 NEEDLE THR EE TIMES A DAY [id number] Start: 07-23-2023 End: 07-17-2024 Clinical Notes 12-27-2021 to 01-03-2025 Telephone Encounter - Mercedes Rhodes - 01/03/2025 8:47 PM ESTTelephone Encounter - Mercedes Rhodes - 01/03/2025 8:47 PM ESTTelephone Encounter - Magdalena Alanis - 01/03/2025 3:10 PM EST Note Date & Type Note Facility 01-03-2025 Miscellaneous Notes Contract: 198 Shan Nair re not responding appropriately, not registering well Relayed info to Dr Clark on cell and transferred documented in this encounter [facility] 01-03-2025 Telephone encounter Note Contract: 198 Shan Nair re not responding appropriately, not registering well Relayed info to Dr Clark on cell and transferred [facility] 01-03-2025 Miscellaneous Notes Contract: 198 Shan eduardo Reyes RE Notifying Doctor of Status Condition not eating or drinking high blood pressure and sleeping more than normal Contract: [address] Clark and Left message to call [facility] Dr. Clark returned page and was connected to the caller. documented in this encounter [facility] 01-03-2025 Telephone encounter Note Contract: 198 Shan eduardo Reyes RE Notifying Doctor of Status Condition not eating or drinking high blood pressure and sleeping more than normal [facility] 01-03-2025 Telephone encounter Note Contract: [address] Clark and Left message to call [facility] 01-03-[address] Clark returned page and was connected to the caller. [facility] 12-26-2024 History of Presen t illness Narrative Images from the original note were not included. Patient Name: Adore Wolff Date of : 1940 Date of Service: 12/26/2024 [place] [facility] [place] of Visit: Skilled Visit Subjective Adore Wolff is a 84 y.o. female seen today at residential facility for therapy visit. Adore has several [...] Fernie Clark DO documented in this encounter [facility] 12-19-2024 History of Presen t illness Narrative Patient Name: Adore Wolff Date of : 1940 Date of Service: 12/19/2024 Facility: [facility] Type of Visit: Skilled Visit Subjective Adore Wolff is a 84 y.o. female seen today at residential facility for therapy visit. Adore is having [...] Fernie Clark DO documented in this encounter [facility] 12-18-2024 Miscellaneous Notes NEW EMG / NCV ORDER 1st attempt: Drinking Water Technician contacted patient's spouse and informed him that we have received patient's EMG order. Spouse stated that he is not interested in scheduling at this time, as the patient is currently in a rehab facility but will call back if anything should change. Drinking Water Technician reassured him that their referral is valid for up to one year should he change his mind - he stated understanding. documented in this encounter [facility] 12-18-2024 Telephone encounter Note NEW EMG / NCV ORDER 1st attempt: Drinking Water Technician contacted patient's spouse and informed him that we have received patient's EMG order. Spouse stated that he is not interested in scheduling at this time, as the patient is currently in a rehab facility but will call back if anything should change. Drinking Water Technician reassured him that their referral is valid for up to one year should he change his mind - he stated understanding. [facility] 12-02-2024 Miscellaneous Notes Fanny the nurse at [facility] called and stated you were in yesterday evening and stated they had aske for a refill for tramodol and the lyrica be sent to [facility]. Also you had discontinued the trazadone [...] in a prescription to [facility] in [place]. If it is a different [facility] then I need to resend it somewhere else Spoke with Fanny and she will follow up with Pharmacy documented in this encounter [facility] 12-02-2024 Telephone encounter Note Fanny the nurse at the [facility] called and stated you were in yesterday evening and stated they had aske for a refill for tramodol and the lyrica be sent to [facility]. Also you had discontinued the trazadone and never put an order in. Do you still want this D/C? If so did you want something in replace of it? Also she is very lethargic today. [facility] 12-[facility]-2024 Telephone encounter Note It could not find any order sheets so I gave a verbal order to stop the trazodone to the nurse. I also asked her if she needed any of her controlled substances and she said no. I did send in a prescription to [facility] in [place]. If it is a different [facility] then I need to [facility]24 Telephone encounter Note Spoke with Fanny and she will follow up with Pharmacy [facility] 12-01-2024 Miscellaneous Notes Contract: 198 Joanie Villa Fouzia called for orders to have patient sent to hospital for evaluation OC198 I called Dr Clark & transferred him to Joanie Pelayo [place] documented in this encounter [facility] [employer] 12-01-2024 Telephone encounter Note Contract: 198 Joanie Villa Fouzia called for orders to have patient sent to hospital for evaluation [facility] 12-01-2024 Telephone encounter Note OC198 I called Dr Clark [facility] 11-24-2024 History of Presen t illness Narrative Patient's spouse called [facility] nurse this morning with concerns [...] possible. Please advise. documented in this encounter [facility] 11-24-2024 Miscellaneous Notes Patient's spouse [...] be septic Notified documented in this encounter [facility] 11-24-2024 Telephone encounter Note Patient's [...] today by PCP if possible. Please advise. [facility] 11-24-2024 Telephone encounter Note She has altered mental status she should go to the emergency room. She could be septic [facility] 11-24-2024 Telephone encounter Note Notified [facility] 11-17-2024 History of Presen t illness Narrative Diabetic Supplies: After numerous attempts by and JARON we have been unable to get in touch with [facility] regarding patient diabetes supplies. Patient is currently out of test strips and would like order sent to new DME supplier. Could you please fax order to [facility] for [employer] meter and strips. Fax number: [phone]. [facility] Nurse Space Control Agent [phone] documented in this encounter [facility] 11-17-2024 Miscellaneous Notes Diabetic Supplies: After numerous attempts by and JARON we have been unable to get in touch with [facility] regarding patient diabetes supplies. Patient is currently out of test strips and would like order sent to new DME supplier. Could you please fax order to [facility] for [employer] meter and strips. Fax number: [phone]. [facility] Nurse Space Control Agent [phone] Please fax to [facility]. Prescriptions were printed documented in this encounter [facility] 11-17-2024 Telephone encounter Note Diabetic Supplies: After numerous attempts by and JARON we have been unable to get in touch with [facility] regarding patient diabetes supplies. Patient is currently out of test strips and would like order sent to new DME supplier. Could you please fax order to [facility] for [employer] meter and strips. Fax number: [phone]. [facility] Nurse Space Control Agent [phone] [facility] 11-17-2024 Telephone encounter Note Please fax to [facility]. Prescriptions were printed [facility] 11-04-2024 History of Presen t illness Narrative Patient is here for 2g IV magnesium as scheduled. Mg level 1.7. PIV initiated, blood return noted, flushes with ease. NS started at KVO. Magnesium infused over 2 hours. Line flushed. Pt tolerated well. PIV dc'd, pressure dressing applied. Pt dc'd in stable ambulatory condition with spouse. documented in this encounter [facility] 10-20-2024 History of Presen t illness Narrative Patient mag level is 1.9, will not need magnesium infusion this week. Patient made aware and will continue on with next week's lab draw. documented in this encounter [facility] 10-07-2024 Miscellaneous Notes Call patient and see if she requested this. It was stopped in the summertime documented in this encounter [facility] 10-07-2024 Telephone encounter Note Call patient and see if she requested this. It was stopped in the summertime [facility] 10-07-2024 History of Presen t illness Narrative Patient is here for 2g IV magnesium as scheduled. Mg level 1.7. PIV initiated, blood return noted, flushes with ease. NS started at KVO. Magnesium infused over 2 hours. Line flushed. Pt tolerated well. PIV dc'd, pressure dressing applied. Pt dc'd in stable ambulatory condition with spouse. documented in this encounter [facility] 10-01-2024 History of Presen t [...] updated treatment calendar. documented in this encounter [facility] 09-10-2024 Miscellaneous Notes NEW EMG/NCV ORDER First attempt- Left Voicemail Dx: Paresthesia of right lower extremity [R20.2]/ Referred by: Fernie Clark DO Referred to: Please schedule patient in the next available appointment with provider. Patient returned call and patient was scheduled for next available EMG in [place]. Patient was placed on waitlist. Appointment: 12/15/2024 at 12:30pm with Dr. Urbano documented in this encounter [facility] 09-10-2024 Telephone encounter Note NEW EMG/NCV ORDER First attempt- Left Voicemail Dx: Paresthesia of right lower extremity [R20.2]/ Referred by: Fernie Clark DO Referred to: Please schedule patient in the next available appointment with provider. [facility] 09-10-2024 Telephone encounter Note Patient returned call and patient was scheduled for next available EMG in [place]. Patient was placed on waitlist. Appointment: 12/15/2024 at 12:30pm with Dr. Urbano [facility] 09-10-2024 History of Presen t illness Narrative Pt here for 2g IV magnesium. Mg level 1.7. PIV initiated to RFA. Brisk blood return verified, and flushes with ease. Magnesium infused over 2 hours without incident. Pt tolerated well. Flushed with saline and PIV dc'd. Pt dc'd in stable ambulatory condition. documented in this encounter [facility] 09-01-2024 History of Presen t illness Narrative Pt magnesium level 1.8. called to notify patient to see if shed like to notify dr medina office to see if she should still get mg infusion since she's WNL. Pt requests to take the week off and recheck mg level in one week. documented in this encounter [facility] 08-27-2024 History of Presen t illness Narrative Patient is here for 2g IV magnesium as scheduled. Mg level 1.6. PIV initiated, blood return noted, flushes with ease. NS started at KVO. Magnesium infused over 2 hours. Line flushed. Pt tolerated well. PIV dc'd, pressure dressing applied. Pt dc'd in stable ambulatory condition with spouse. documented in this encounter [facility] 08-22-2024 History of Presen t illness Narrative When was the last Refill? 05/27/24 Is this medication Historical? [place] of preferred Pharmacy? [facility] When was the last OV with provider? 05/27/24 When is the next scheduled visit? 11/27/24 documented in this encounter [facility] 08-20-2024 History of Presen t illness Narrative Pt here for 2g IV magnesium. Mg level 1.6. PIV initiated to RFA. Brisk blood return noted, flushes with ease. Magnesium infused over 2 hours. Line flushed. Pt tolerated well. PIV dc'd. Pressure dressing applied. Dc'd in stable ambulatory condition. documented in this encounter [facility] 08-13-2024 History of Presen t illness Narrative Pt here for 2g IV magnesium per pt reqeust. Mg level 1.6. PIV initiated to LFA. Brisk blood return noted, flushes with ease. NS started at KVO. Magnesium infused over 2 hours. Pt tolerated well. PIV dc'd. Pressure dressing applied. Dc'd in stable ambulatory condition. documented in this encounter [facility] 08-06-2024 History of Presen t illness Narrative Pt here for 2g IV magnesium per pt reqeust. Mg level 1.5. PIV initiated to RFA. Brisk blood return noted, flushes with ease. NS started at KVO. Magnesium infused over 2 hours. Pt tolerated well. PIV dc'd. Pressure dressing applied. Dc'd in stable ambulatory condition. documented in this encounter [facility] 07-30-2024 History of Presen t illness Narrative Patient presents for Magnesium infusion. Mg 1.5 drawn 07/28/2024 Patient requests 2g of Magnesium today. PIV initiated, brisk blood return noted. Flushed with NS. Magnesium infusing as ordered over 2 hours. Patient tolerated infusion well. PIV discontinued, gauze secured with coban in place. Discharged in stable condition. documented in this encounter [facility] 07-23-2024 History of Presen t illness Narrative Patient presents for Magnesium infusion. Mg 1.6 drawn 07/21/2024 Patient will received 2g of Magnesium today per orders. PIV initiated, brisk blood return noted. Flushed with NS. Magnesium infusing as ordered over 2 hours. Patient tolerated infusion well. PIV discontinued, gauze secured with coban in place. Discharged in stable condition. documented in this encounter [facility] 07-16-2024 History of Presen t illness Narrative Pt here for 4gm IV magnesium for mg level 1.5. PIV initiated to RFA. Brisk blood return noted, flushes with ease. NS started at KVO. 4g IV magnesium infused over 4 hours without incident. Line flushed. PIV removed, pressure dressing applied. Dc'd in stable ambulatory condition. documented in this encounter [facility] 07-09-2024 History of Presen t illness Narrative Pt here for 2gm IV magnesium for mg level 1.6. PIV initiated to RFA. Brisk blood return noted, flushes with ease. NS started at KVO. 2g IV magnesium infused over 2 hours without incident. Line flushed. PIV removed, pressure dressing applied. Dc'd in stable ambulatory condition. documented in this encounter [facility] 07-02-2024 History of Presen t illness Narrative Pt here for 2gm IV magnesium for mg level 1.6. PIV initiated to RFA. Brisk blood return noted, flushes with ease. NS started at KVO. 2g IV magnesium infused over 2 hours without incident. Line flushed. PIV removed, pressure dressing applied. Dc'd in stable ambulatory condition. documented in this encounter [facility] [email or web address] 06-25-2024 History of Presen t illness Narrative Pt here for 2gm IV magnesium for mg level 1.7. PIV initiated to RFA. Brisk blood return noted, flushes with ease. NS started at KVO. 2g IV magnesium infused over 2 hours without incident. Line flushed. PIV removed, pressure dressing applied. Dc'd in stable ambulatory condition. documented in this encounter [facility] [email or web address] 06-18-2024 History of Presen t illness Narrative Patient is here for 2g IV magnesium as scheduled. Mg level 1.7. PIV initiated, blood return noted, flushes with ease. NS started at KVO. Magnesium infused over 2 hours. Line flushed. Pt tolerated well. PIV dc'd, pressure dressing applied. Pt dc'd in stable ambulatory condition with spouse. documented in this encounter [facility] [email or web address] 06-11-2024 History of Presen t illness Narrative [...] condition with spouse. documented in this encounter [facility] 05-29-2024 Miscellaneous Notes ----- Message [...] mg Patient notified documented in this encounter [facility] 05-29-2024 Telephone encounter Note ----- [...] bring us a new sample for testing. [facility] 05-29-2024 Telephone encounter Note Adore will come in tomorrow to provide a repeat urine sample in office. She also was wondering about her low dose asprin. She had discontinued it about 1.5 months ago due to frequent nose bleeds. The nose bleeds are gone and wonders if she should start her asprin again. [facility] 05-29-2024 Telephone encounter Note Okay great! Yes she can restart aspirin 81 mg [facility] 05-29-2024 Telephone encounter Note Patient notified [facility] 05-28-2024 History of Presen t illness Narrative Patient presents for Magnesium infusion. Mg 1.6 drawn 05/26/2024 Patient will received 2g of Magnesium today per orders. PIV initiated, brisk blood return noted. Flushed with NS. Magnesium infusing as ordered over 2 hours. Patient tolerated infusion well. PIV discontinued, gauze secured with coban in place. Discharged in stable condition. documented in this encounter [facility] 05-27-2024 History of Presen t illness Narrative Subjective Patient ID: Adore Wolff is a 83 y.o. female. Adore presents today for diabetic recheck. She is taking her medications and not having any side effects. She has had it upper respiratory infection for a couple weeks it is better but she still has a nagging cough. She tried lbad-byd-hjmkdnf cough medicine but it made it worse. [...] Exam Vitals reviewed. Exam conducted with a physical chemistry teacher present (Ifeanyi Johnson MS III). Constitutional: General: [...] stage 4 chronic kidney disease and hypertension ([facility]) - POCT Hemoglobin A1c - POCT urinalysis dipstick only A1c wsa 7.1% Continue current regimen Dysuria - Urine culture (clean catch); Future Urine was abnormal so will check C&S. Acute rhinitis Will treat with loratadine 10 mg daily Morbid obesity ([facility]) She is morbidly obese. She would benefit from wt loss. Incontinence of feces with fecal urgency Recommended to stop reglan and try fiber supplement to give more bulk to stool.. Other orders - loratadine (CLARITIN) 10 mg tablet; Take 1 tablet (10 mg total) by mouth daily as needed for allergies. documented in this encounter [facility] 05-21-2024 History of Presen t illness Narrative Pt here for 2g IV magnesium for mg level of 1.7. PIV initiated to RFA. Brisk blood return noted, flushes with ease. NS started at KVO. Magnesium infused over 2 hours. Pt tolerated well. Line flushed. PIV dc'd. Pressure dressing applied. Dc'd in stable ambulatory condition. documented in this encounter [facility] 05-14-2024 History of Presen t illness Narrative Pt here for 2g IV magnesium for mg level 1.6. PIV initiated to RFA. Brisk blood return noted, flushes with ease. NS started at KVO. Magnesium infused over 2 hours. Pt tolerated well. PIV dc'd. Pressure dressing applied. Dc'd in stable ambulatory condition with spouse. documented in this encounter [facility] 05-07-2024 History of Presen t illness Narrative Patient is here for 4g IV magnesium as scheduled. Mg level 1.4. PIV initiated, blood return noted, flushes with ease. NS started at KVO. Magnesium infused over 2 hours. Line flushed. Pt tolerated well. PIV dc'd, pressure dressing applied. Pt dc'd in stable ambulatory condition with spouse. documented in this encounter [facility] 04-30-2024 History of Presen t [...] in stable condition. documented in this encounter [facility] 04-23-2024 History of Presen t illness Narrative Pt here for 4g IV magnesium for mg level of 1.4. PIV initiated to RFA. Brisk blood return noted, flushes with ease. NS started at KVO. Magnesium infused over 4 hours as ordered. Pt tolerated well. Line flushed. PIV dc'd, pressure dressing applied. Pt dc'd in stable condition. documented in this encounter [facility] 04-16-2024 History of Presen t illness Narrative Pt here for 2g IV magnesium as scheduled. Mg level 1.6. PIV initiated to RFA. Brisk blood return noted, flushes with ease. NS started at KVO. Magnesium infused over 2 hours. Pt tolerated well. PIV dc'd pressure dressing applied. Pt dc'd in stable ambulatory condition. V/u of future appointments. documented in this encounter [facility] 04-09-2024 History of Presen t [...] in stable condition. documented in this encounter [facility] 04-02-2024 History of Presen t illness Narrative Pt here for IV magnesium as scheduled. Mg level 1.7. PIV initiated to RFA. Blood return verified. Flushes with ease. NS started at KVO. 2g magnesium infused over 2 hours. Pt tolerated well. PIV dc'd. Pressure dressing applied. Pt dc'd in stable ambulatory condition. documented in this encounter [facility] 03-26-2024 History of Presen t illness Narrative Pt here for IV magnesium as scheduled for mg level of 1.6. PIV initiated to RFA. Brisk blood return noted, flushes with ease. NS started at KVO. Magnesium infused over 2 hours. Pt tolerated well. Line flushed. PIV dc'd- pressure dressing applied. Pt dc'd in stable ambulatory condition. documented in this encounter [facility] 03-19-2024 History of Presen t illness Narrative Pt here for IV magnesium for mg level 1.6. PIV initiated to RFA after several attempts. Brisk blood return noted, flushes with ease. NS started at KVO. Magnesium infused over 2 hours. Pt tolerated well. PIV dc'd- pressure dressing applied. Pt dc'd in stable ambulatory condition. V/u of future appts. documented in this encounter [facility] 03-12-2024 History of Presen t illness Narrative Pt here for Mg infusion. Mg 1.6, 2GM Mg indicated per order. PIV initiated to RFA, brisk blood return noted, flushes without difficulty. 2gm Mg infused over 2 hours, pt tolerated well. PIV discontinued, pressure dressing applied. Calendar provided, pt discharged ambulatory in stable condition. documented in this encounter [facility] 02-25-2024 History of Presen t illness Narrative Subjective Patient ID: Adore Wolff is a 83 y.o. female. Adore presents for a vnty-ma-lleu visit to try to get pads for [...] Exam Vitals reviewed. Exam conducted with a physical chemistry teacher present (). Constitutional: Appearance: She is morbidly [...] make a referral. documented in this encounter [facility] 02-25-2024 History of Presen t illness Narrative Patient and were updated on normal magnesium level of 1.9. She is still very bruised on her arms and wishes to continue to hold infusions at this time since level is normal to allow her arms/veins time to be less bruised. She will continue to have weekly lab checks completed. documented in this encounter [facility] 02-20-2024 History of Presen t illness Narrative Received call back from Dr. Munoz's office. Instructed to hold magnesium infusions at this time. Will update patient and have pt continue to have labs checked to monitor. documented in this encounter [facility] 02-19-2024 History of Presen t illness Narrative Pt magnesium level 1.9. called to notify patient and pt states her arms are still very bruised up from multiple IV attempts. Pt request to skip infusion this week to give her veins/arms a break since her mg level is wnl. Pt will recheck lab next week. documented in this encounter [facility] 02-13-2024 History of Presen t [...] stable ambulatory condition. documented in this encounter [facility] 02-06-2024 History of Presen t illness Narrative Pt here for 2g IV magnesium as scheduled for mg level 1.8. Tolerating infusions well. PIV initiated to RFA. Brisk blood return noted, flushes with ease. NS started at KVO. Magnesium infused over 2 hours. Pt tolerated well. PIV dc'd, pressure dressing applied. Pt dc'd in stable ambulatory condition. documented in this encounter [facility] 01-30-2024 History of Presen t illness Narrative Patient is here for 2g IV magnesium as scheduled. Mg level 1.8. PIV initiated, blood return noted, flushes with ease. NS started at KVO. Magnesium infused over 2 hours. Line flushed. Pt tolerated well. PIV dc'd, pressure dressing applied. Pt dc'd in stable ambulatory condition with spouse. documented in this encounter [facility] 01-23-2024 History of Presen t illness Narrative Patient is here for 2g IV magnesium as scheduled. Mg level 1.7. PIV initiated on second attempt, blood return noted, flushes with ease. NS started at KVO. Magnesium infused over 2 hours. Line flushed. Pt tolerated well. PIV dc'd, pressure dressing applied. Pt dc'd in stable ambulatory condition with spouse. documented in this encounter [facility] 01-16-2024 History of Presen t [...] of upcoming appointments. documented in this encounter [facility] 01-09-2024 History of Presen t illness Narrative Pt here for 2g IV magnesium for mg level of 1.7. Tolerating infusions well. PIV initiated to RFA. Brisk blood return, flushes with ease. NS started at KVO. Magnesium infused over 2 hours. Pt tolerated well. PIV flushed and dc'd. Pressure dressing applied. Dc'd in stable condition. documented in this encounter [facility] 01-08-2024 History of Presen t [...] Do you have a durable power of deputy commonwealth's attorney?: Yes Cognitive Screening Do you have [...] year (around 01/08/2025). documented in this encounter [facility] 01-02-2024 History of Presen t illness Narrative Patient is here for 2g IV magnesium as scheduled. Mg level 1.7. PIV initiated on third attempt, blood return noted, flushes with ease. NS started at KVO. Magnesium infused over 2 hours. Line flushed. Pt tolerated well. PIV dc'd, pressure dressing applied. Pt dc'd in stable ambulatory condition with spouse. documented in this encounter [facility] [email or web address] 12-26-2023 History of Presen t illness Narrative Pt here for 2g IV magnesium infusion as scheduled. Mg level 1.6. Tolerating infusions well. PIV initiated to RFA. Brisk blood return noted, flushes with ease. NS started at KVO. Magnesium infused over 2 hours. Pt tolerated well. Line flushed. PIV dc'd. Pressure dressing applied. Pt v/u of future appointments. documented in this encounter [facility] 12-19-2023 History of Presen t illness Narrative Pt here for 4g IV magnesium infusion as scheduled. Mg level 1.5. Tolerating infusions well. PIV initiated to LFA. Brisk blood return noted, flushes with ease. NS started at KVO. Magnesium infused over 4 hours. Pt tolerated well. Line flushed. PIV dc'd. Pressure dressing applied. Pt v/u of future appointments. documented in this encounter [facility] 12-12-2023 History of Presen t illness Narrative Patient is here for 2g IV magnesium as scheduled. Mg level 1.7. PIV initiated blood return noted, flushes with ease. NS started at KVO. Magnesium infused over 2 hours. Line flushed. Pt tolerated well. PIV dc'd, pressure dressing applied. Pt dc'd in stable ambulatory condition with spouse. documented in this encounter [facility] 12-05-2023 History of Presen t illness Narrative Patient here for 2g IV magnesium as scheduled. Mg level 1.7. PIV initiated blood return noted, flushes with ease. NS started at KVO. Magnesium infused over 2 hours. Line flushed. Pt tolerated well. PIV dc'd, pressure dressing applied. Pt dc'd in stable ambulatory condition with spouse. documented in this encounter [facility] 12-04-2023 Miscellaneous Notes Patient called and these are both covered by insurance and she would like these sent in instead of what the alternative was documented in this encounter [facility] 12-04-2023 Telephone encounter Note Patient called and these are both covered by insurance and she would like these sent in instead of what the alternative was [facility] 11-28-2023 History of Presen t illness Narrative Patient here for 2g IV magnesium as scheduled. Mg level 1.8. PIV initiated to LFA Brisk blood return noted, flushes with ease. NS started at KVO. Magnesium infused over 2 hours. Line flushed. Pt tolerated well. PIV dc'd, pressure dressing applied. Pt dc'd in stable ambulatory condition with spouse. documented in this encounter [facility] 11-26-2023 History of Presen t illness Narrative Subjective Patient ID: Adore Wolff is a 83 y.o. female. Adore presents for recheck of multiple problems. She is currently getting a series of magnesium infusions due to critically low magnesium level. She was asymptomatic. She got her labs done today at [facility]. She has information regarding her formulary. Lantus [...] Objective Physical Exam Exam conducted with a physical chemistry teacher present (). 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 Await CMP results. Await A1c and ACR results. Mixed hyperlipidemia Await lipid results Hypomagnesemia Managed by Nephrology. 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 Continue omeprazole. PPI can also lead to low magnesium. Morbid obesity ([facility]) She is morbidly obese. She would benefit [...] the skin nightly. [facility] History of Presen t illness Narrative [...] Treatment calendar provided. [facility] 11-19-2023 Note Continue statin [facility] 11-19-2023 Note Hypertension is elev ated in office today was 192/86 and repeat b/p improved 158/80 Typically b/p is 122-150/60-80 at home and at other physician offices. Continue all meds ramipril, coreg [facility] 11-19-2023 Note Coronary artery dise ase is stable Continue GDMT- ASA, lipitor, coreg continue risk factor modifications- heart healthy diet, regular exercise as tolerated and continue all medications. [facility] 11-19-2023 Note Patient here for 1 y ear follow up CAD, hypertension, and venous insufficiency. Had labs a week or so ago for human resources supervisor and says she's in the process of [...] All other systems reviewed and are negative. [facility] 11-19-2023 Note [facility] CARDIOLOGY PROGR ESS [...] labs a week or so ago for human resources supervisor and says she's in the process of [...] 2.05, BUN 64, (more content not included)... [facility] 08-23-2023 Evaluation note Encounter Date Diagnosis [...] magnesium diet and provide information about it. [employer] Other 03-16-2023 NoteCONSULTATION CONSULTATION DATE: 01/25/2023 HISTORY: [...] and to talk with Dr. Munoz, their human resources supervisor, to confirm that this was acceptable, considering her stage 3 kidney disease. Other than that, we will see her in three months' time at the clinic, unless otherwise indicated. Patient and agree with this plan.[facility] 01-25-2023 Evaluation note* Encounter Date Diagnosis Assessment [...] magnesium diet and provide information about it. [facility] [facility] Chief Complaint: Patient being seen via telephone call for 6 mo follow up hypertension, CAD, and CKD. She denies chest pain and increased SOB with exertion. C/o increased LE edema but denies weight gain. Says her human resources supervisor Dr. Munoz advised her to call him [...] enzyme inhibitor/receptor micki. 4. Follow up with [facility] Cardiology in the next 2 to [...] creatinine and electrolytes; she follows with her human resources supervisor Leg swelling is likely related to venous [...] was initiated by the patient and conducted [id number] with use of audio-only real time telephone communication between patient and provider for a virtual visit. Verbal consent to provide and bill for this service was obtained on 12/06/2022. No signature was obtained due to the COVID-19 pandemic. Moe Parham MD, MPH, [facility], [place], [facility] Interventional Cardiology Pager Email: [email or web address] NoteCONSULTATION CONSULTATION DATE: 10/26/2022 HISTORY OF PRESENT ILLNESS: This is a very pleasant, 82-year-old female who presents with her for a three month follow up. Today, she reports 0/10 pain and is overall doing well. At her last appointment on 08/02/2022, we had switched her medications from Woodland to tramadol extended release 100 mg per day, which she feels is helping very much. It is lasting for her better than the Woodland. She is also on Lyrica 75 mg [...] upon deep compression of the lumbar facets. Imla's point is non-tender bilaterally. Paravertebral muscles are [...] patient agrees with this plan.[id number] NoteCONSULTATION CONSULTATION DATE: 08/02/2022 HISTORY OF PRESENT ILLNESS: This is a pleasant, 81-year-old female, accompanied by her , returning to the clinic for a three month follow up for chronic lower back pain. She was last seen on 04/25/[address] Stern which, at that time, her Woodland was decreased to 5/325 daily p.r.n., which [...] increased to 100 mg extended release daily. Woodland will be discontinued. Education was given regarding use of the menthol heat rub with Voltaren gel and heat application to her back. Vitamin and nutrition importance was discussed. Patient will be seen back in the clinic in three months' time, unless otherwise indicated, and patient agrees to this.[facility] [id number] Evaluation note* Encounter Date Diagnosis Assessment Notes [...] any recent gout flare. She takes allopurinol. [employer] Other 06-22-2022 Evaluation note* Encounter Date Diagnosis Assessment Notes Treatment Notes Treatment Clinical Notes Apr, Hypertensive chronic kidney disease with stage 1 through stage 4 chronic kidney disease, or unspecified chronic kidney disease (ICD-10 - I12.9) [employer] Other 06-14-2022 NoteCONSULTATION CONSULTATION DATE: 04/25/2022 CHIEF [...] 4/10. She is managing the pain with Woodland 5/325 one table daily and tramadol 50 [...] the patient's pain medication which would be Woodland 5/325 one tablet daily and tramadol 50 [...] she need us. CC: Fernie Clark D.O. [facility] Signed and Approved by: DR LUISA STERN . 05/02/2022 08:52:00[facility]05-26-2022 Evaluation note* Encounter Date Diagnosis Assessment [...] any recent gout flare. She takes allopurinol. [employer] Other 05-19-2022 NoteCONSULTATION CONSULTATION DATE: 03/30/2022 This [...] She was given a 14-day prescription of Woodland 5/325 b.i.d. to help with the acuity of her post-procedure pain. Today she reports the Woodland is gone and she is back on [...] and rather we will maintain her on Woodland 5/325 b.i.d. which proved to be the [...] and agree and would like to proceed. [facility] Signed and Approved by: JONNY CAMPUZANO . 04/03/2022 15:07:00[facility]02-15-2022 Evaluation note* Encounter Date Diagnosis Assessment [...] any recent gout flare. She takes allopurinol. [employer] Other Evaluation noteNo InformationNort [facility] Other Evaluation noteNo assessment information available [facility] Work Phone: Evaluation note* Diagnosis Onset Date Resolution Status Anemia of renal disease acut e CKD (chronic kidney disease) stage 3, GFR 30-59 ml/min acute [id number] acute Hyperuricemia acute Hypomagnesemia acute Secondary hyperparathyroidism acute Type 2 diabetes mellitus wit h diabetic chronic kidney disease acute [facility] Work Phone: Evaluation note* Diagnosis Hypomagnesemia- Primary Disorders of magnesium metabolism documented [facility]* Diagnosis Hypomagnesemia- Primary Disorders of magnesium metabolism [facility]* Diagnosis 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 ([facility] Primary Morbid obesity ([facility]) Morbid obesity [facility] in this [facility]* Diagnosis 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 ([facility] Primary Morbid obesity ([facility]) Morbid obesity documented in this [facility] [employer] [facility]* Diagnosis Lumbar stenosis with neurogenic claudication- Primary documented in this encounter [facility]* Diagnosis Lumbar stenosis with neurogenic claudication documented in this [facility] [facility]* Diagnosis Hypomagnesemia- Primary Disorders of magnesium metabolism documented in this encounter [facility]* Diagnosis Hypomagnesemia- Primary Disorders of magnesium metabolism documented in this [facility]* Diagnosis Hypomagnesemia- Primary Disorders of magnesium metabolism documented in this encounter [facility] [employer] System[facility]* Diagnosis Mixed hyperlipidemia- Primary Type 2 diabetes mellitus with stage 3b chronic kidney disease, with long-term current use of insulin ([facility]) Essential hypertension Unspecified essential hypertension documented in this encounter [facility] [employer] System[facility]* Diagnosis Hypomagnesemia- Primary Disorders of magnesium metabolism documented in this encounter [facility] [employer] System[facility] note* Diagnosis 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 ([facility])- Primary Mixed hyperlipidemia Hypomagnesemia 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 Morbid obesity ([facility]) Morbid obesity Chronic obstructive pulmonary disease, unspecified COPD type ([facility]) documented in this encounter [facility]* Diagnosis Hypomagnesemia- Primary Disorders of magnesium metabolism documented in this encounter [facility]* Diagnosis Hypomagnesemia- Primary Disorders of magnesium metabolism [facility] Diagnosis Hypomagnesemia- Primary Disorders of magnesium metabolism [facility] Diagnosis Hypomagnesemia- Primary Disorders of magnesium metabolism documented in this encounter [facility]* Diagnosis Hypomagnesemia- Primary Disorders of magnesium metabolism documented in this encounter [facility]* Diagnosis Acute cystitis with hematuria- Primary Essential hypertension Unspecified essential hypertension Acute right-sided low back pain without sciatica Nausea Nausea alone Anxiety Anxiety state, unspecified documented in this encounter [facility]* Diagnosis Medicare annual wellness visit, subsequent- Primary Screening for depression documented in this encounter [facility]* Diagnosis Constipation, unspecified constipation type- Primary Essential hypertension Unspecified essential hypertension Dysuria History of UTI History of sepsis Personal history of other infectious and parasitic disease Chronic low back pain without sciatica, unspecified back pain laterality documented in this encounter [facility]* Diagnosis 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 ([facility] Primary Dysuria Acute rhinitis Acute nasopharyngitis (common cold) Morbid obesity ([facility]) Morbid obesity Incontinence of feces with fecal urgency documented in this encounter [facility]* Diagnosis 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 ([facility] Primary documented in this encounter [facility]* Diagnosis Hypomagnesemia- Primary Disorders of magnesium metabolism documented in this encounter [facility]* Diagnosis Hypomagnesemia- Primary Disorders of magnesium metabolism documented in this encounter [facility]* Diagnosis Hypomagnesemia- Primary Disorders of magnesium metabolism documented in this encounter [facility]* Diagnosis Urinary incontinence, unspecified type- Primary Abnormality of gait and mobility documented [facility] Diagnosis Hypomagnesemia- Primary Disorders of magnesium metabolism documented in this encounter [facility]* Diagnosis Hypomagnesemia- Primary Disorders of magnesium metabolism [facility] Diagnosis 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 ([facility])- Primary Morbid obesity ([facility]) Morbid obesity [facility] Diagnosis Paresthesia of right lower extremity- Primary Ross's esophagus with dysplasia [facility] Diagnosis Hypomagnesemia- Primary Disorders of magnesium metabolism [facility] Diagnosis Lumbar stenosis with neurogenic claudication [facility] Diagnosis Lumbar stenosis with neurogenic claudication documented in this encounter [facility] - [facility]* Type Description [...] IN LOWER BACK Hospitalization History see above [employer] Other [employer] general Narrative - Reported* Type Description Date [...] HEART CATH 03/30/2021 Hospitalization History see above [employer] Other [employer] general Narrative - Reported* Type Description Date [...] IN LOWER BACK Hospitalization History see above [employer] Other InstructionsNot on filedocumented in this encounter [...] kidney disease) stage 3, GFR 30-59 ml/min [id number] Hyperuricemia Hypomagnesemia Secondary hyperparathyroidism Type 2 diabetes mellitus with diabetic chronic kidney disease Chief Complaint Admit Date Unknown November 20, 2024 4: 20am Additional Source Comments INFORMATION SOURCE (unrecogn ized section and content) DATE CREATED AUTHOR 04/06/2021 [facility] DATE CREATED AUTHOR AUTHOR'S ORGANIZ ATION 05/12/2022 [facility] DATE CREATED AUTHOR AUTHOR'S ORGANIZ ATION 03/15/2023 [facility] DATE CREATED AUTHOR AUTHOR'S ORGANIZ ATION 11/19/[address] [facility] DATE CREATED AUTHOR AUTHOR'S ORGANIZ ATION 05/31/2024 [facility] DATE CREATED AUTHOR AUTHOR'S ORGANIZ ATION 06/03/2024 [facility] DATE CREATED AUTHOR AUTHOR'S ORGANIZ ATION 11/07/2024 [facility] DATE CREATED AUTHOR AUTHOR'S ORGANIZ ATION 11/23/2024 [facility] DATE CREATED AUTHOR AUTHOR'S ORGANIZ ATION 11/26/2024 [facility] REASON FOR VISIT (unrecogniz [...] Reason Onset Date Comments Med Refill 12/29/2024 Reason Onset Date Comments status of patient 01/03/2025 Reason Onset Date Comments patient update 01/03/2025 Care Teams (unrecognized sec tion and content) [...] Fernie Clark DO Primary Care Provider Active Gia Munoz MD Attending Provider Active [employer] Relationship Specialty Start Date End Date Roxann Fernie Jamarcus [address], [place] [address] PCP - General Family Medicine 05/09/17 Flori Mon [facility] Nurse - [employer] 06/26/24 Digital Watch Assembler Relationship Specialty Start Date End Date Fernie Clark DO [address], [place] [address] PCP - General Family Medicine 05/09/17 Flori Mon [facility] Nurse - [employer] 06/26/24 Digital Watch Assembler Relationship Specialty Start Date End Date Roxann Fernie Jamarcus [address], [place] [address] PCP - General Family Medicine 05/09/17 Flori Mon [facility] Nurse - [employer] 06/26/24 Digital Watch Assembler Relationship Specialty Start Date End Date Fernie Clark JamarcusDO [address], [place] [address] PCP - General Family Medicine 05/09/17 Flori Mon [facility] Nurse - [employer] 06/26/24 Digital Watch Assembler Relationship Specialty Start Date End Date Fernie Clark DO [address], [place] [address] PCP - General Family Medicine 05/09/17 Flori Mon [facility] Nurse - [employer] 06/26/24 Digital Watch Assembler Relationship Specialty Start Date End Date Tracyangel luisFernie [address], [place] [address] PCP - General Family Medicine 05/09/17 Clari Alasandro [facility] Nurse - [employer] 11/17/24 Digital Watch Assembler Relationship Specialty Start Date End Date RoxannFernieDO [address], [place] [address] PCP - General Family Medicine 05/09/17 Clari Alasandro [facility] Nurse - [employer] 11/17/24 Digital Watch Assembler Relationship Specialty Start Date End Date Tracyangel luisFernie [address] [place] [address] PCP - General Family Medicine 05/09/17 Clari Alasandro [facility] Nurse - [employer] 11/17/24 Digital Watch Assembler Relationship Specialty Start Date End Date Tracyangel luisFernie [address], [place] [address] PCP - General Family Medicine 05/09/17 Clari Alasandro [facility] Nurse - [employer] 11/17/24 Digital Watch Assembler Relationship Specialty Start Date End Date Roxann Fernie Ricketts DO [address] [place] [address] PCP - General Family Medicine 05/09/17 Clari Costa [facility] Nurse S[facility]h [facility] 11/17/24 Digital Watch Assembler Relationship Specialty Start Date End Date RoxannFernie [address] [place] [address] PCP - General Family Medicine 05/09/17 [employer] As[employer]er Relationship Specialty Start Date End Date RoxannFernie [address] [place] [address] PCP - General Family Medicine 05/09/17 Digital Watch Assembler Relationship Specialty Start Date End Date Roxann Fernie G, [address] [place] [address] PCP - General Family Medicine 05/09/17 Digital Watch Assembler Relationship Specialty Start Date End Date RoxannFernie [address] [place] [address] PCP - General Family Medicine 05/09/17 Digital Watch Assembler Relationship Specialty Start Date End Date RoxannFernie [address] [place] [address] PCP - General Family Medicine 05/09/17 Digital Watch Assembler Relationship Specialty Start Date End Date Roxann Fernie G, [address] [place] [address] PCP - General Family Medicine 05/09/17 Digital Watch Assembler Relationship Specialty Start Date End Date TracymonicaFernie noguera DO [address], [place] [address] PCP - General Family Medicine 05/09/17 [employer] As[employer]er Relationship Specialty Start Date End Date RoxannFernie DO [address] [place] [address] PCP - General Family Medicine 05/09/17 Digital Watch Assembler Relationship Specialty Start Date End Date RoxannFernie DO [address] [place] [address] PCP - General Family Medicine 05/09/17 Digital Watch Assembler Relationship Specialty Start Date End Date RoxannFernie DO [address] [place] [address] PCP - General Family Medicine 05/09/17 Digital [employer] As[employer]er Relationship Specialty Start Date End Date RoxannFernie DO [address] [place] [address] PCP - General Family Medicine 05/09/17 Digital Watch Assembler Relationship Specialty Start Date End Date RoxannFernie DO [address] [place] [address] PCP - General Family Medicine 05/09/17 Jeni Coronel [facility] Nurse [facility] 04/23/24 Digital Watch Assembler Relationship Specialty Start Date End Date RoxannFernie DO [address] [place] [address] PCP - General Family Medicine 05/09/17 Digital Watch Assembler Relationship Specialty Start Date End Date TracymonicaFernie noguera [address], [place] [address] PCP - General Family Medicine 05/09/17 Digital Watch Assembler Relationship Specialty Start Date End Date TracymonicaFernie noguera [address], [place] [address] PCP - General Family Medicine 05/09/17 Jeni Coronel [facility] Nurse - [employer] 04/23/24 Digital Watch Assembler Relationship Specialty Start Date End Date Tracyangel luisFernie [address], [place] [address] PCP - General Family Medicine 05/09/17 Jeni Coronel [facility] Nurse - [employer] 04/23/24 Digital Watch Assembler Relationship Specialty Start Date End Date TracymonicaFernie noguera [address], [place] [address] PCP - General Family Medicine 05/09/17 Jeni Coronel [facility] Nurse - [employer] 04/23/24 Digital Watch Assembler Relationship Specialty Start Date End Date Tracyangel luisFernie [address], [place] [address] PCP - General Family Medicine 05/09/17 Digital Watch Assembler Relationship Specialty Start Date End Date RoxannFernie [address], [place] [address] PCP - General Family Medicine 05/09/17 Clari Costa [facility] Nurse - [employer] 11/17/24 Digital Watch Assembler Relationship Specialty Start Date End Date Tracyangel luisFernie [address], [place] [address] PCP - General Family Medicine 05/09/17 Clari Costa [facility] Nurse - [employer] 11/17/24 Digital Watch Assembler Relationship Specialty Start Date End Date Roxann Fernie GDO [address], [place] [address] PCP - General Family Medicine 05/09/17 Jeni Coronel [facility] Nurse - [employer] 04/23/24 Digital Watch Assembler Relationship Specialty Start Date End Date Fernie Clark DO [address], [place] [address] PCP - General Family Medicine 05/09/17 Jeni Coronel [facility] Nurse - [employer] 04/23/24 Digital Watch Assembler Relationship Specialty Start Date End Date Fernie Clark DO [address], [place] [address] PCP - General Family Medicine 05/09/17 Jeni Coronel [facility] Nurse - [employer] 04/23/24 Digital Watch Assembler Relationship Specialty Start Date End Date Fernie Clark DO [address], [place] [address] PCP - General Family Medicine 05/09/17 Jeni Coronel [facility] Nurse - [employer] 04/23/24 Digital Watch Assembler Relationship Specialty Start Date End Date Fernie Clark [address], [place] [address] PCP - General Family Medicine 05/09/17 Jeni Coronel [facility] Nurse - [employer] 04/23/24 Digital Watch Assembler Relationship Specialty Start Date End Date Tracyangel luisFernie [address], [place] [address] PCP - General Family Medicine 05/09/17 Digital Watch Assembler Relationship Specialty Start Date End Date Tracyangel luisFernie [address], [place] [address] PCP - General Family Medicine 05/09/17 Jeni Coronel [facility] Nurse - [employer] 04/23/24 Digital Watch Assembler Relationship Specialty Start Date End Date Tracyangel luisFernie [address], [place] [address] PCP - General Family Medicine 05/09/17 Digital Watch Assembler Relationship Specialty Start Date End Date Tracyangel luisFernie [address], [place] [address] PCP - General Family Medicine 05/09/17 Flori Mon [facility] Nurse - [employer] 06/26/24 Digital Watch Assembler Relationship Specialty Start Date End Date Roxann Fernie Ricketts DO [address] [place] [address] PCP - General Family Medicine 05/09/17 Flori Mon [facility] Nurse - [employer] 06/26/24 Digital Watch Assembler Relationship Specialty Start Date End Date Fernie Clark DO [address], [place] [address] PCP - General Family Medicine 05/09/17 Flori Mon [facility] Nurse - [employer] 06/26/24 Digital Watch Assembler Relationship Specialty Start Date End Date Fernie Clark DO [address], [place] [address] PCP - General Family Medicine 05/09/17 Flori Mon [facility] Nurse - [employer] 06/26/24 Digital Watch Assembler Relationship Specialty Start Date End Date Fernie Clark DO [address], [place] [address] PCP - General Family Medicine 05/09/17 Flori Mon [facility] Nurse - [employer] 06/26/24 Digital Watch Assembler Relationship Specialty Start Date End Date Fernie Clark DO [address], [place] [address] PCP - General Family Medicine 05/09/17 Flori Mon [facility] Nurse - [employer] 06/26/24 Digital Watch Assembler Relationship Specialty Start Date End Date Fernie Clark DO [address], [place] [address] PCP - General Family Medicine 05/09/17 Flori Mon [facility] Nurse - [employer] 06/26/24 Digital Watch Assembler Relationship Specialty Start Date End Date Fernie Clark DO [address], [place] [address] PCP - General Family Medicine 05/09/17 Flori Mon [facility] Nurse - [employer] 06/26/24 Digital Watch Assembler Relationship Specialty Start Date End Date Fernie Clark [address], [place] [address] PCP - General Family Medicine 05/09/17 Flori Mon [facility] Nurse - [employer] 06/26/24 Digital Watch Assembler Relationship Specialty Start Date End Date Fernie Clark DO [address], [place] [address] PCP General Family [facility] 05/09/17 Flori Mon [facility] 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 [facility] [employer] [facility]. provides no warranty or guarantee of the accuracy or completeness of information in this document.
--- NOTE | 2025-01-03 22:13 | ECG_ITS ---
[facility] Test Date: 2025-01-03 Pat Name: DAVID DUGAN Department: Room: - Gender: Female Histology Supervisor: : [id number] Requested By: SHANDA CLARK Order Number: [id number] Reading MD: MONICA FALLON Measurements Intervals [place] Rate: 58 P: 47 [place]: 176 QRS: -34 QRSD: 140 T: -30 QT: 474 QTc: 472 Interpretive Statements 1100 Sinus rhythm 2450 Right bundle branch block 7200 Abnormal left axis deviation 9150 abnormal ECG Compared to ECG 01/02/2025 04:49:50 Ventricular premature complex(es) no longer present Electronically Signed On 01-04-2025 7:55:21 EST by MONICA FALLON
[2025-01-03 22:23] LABS: Basophils Percent Auto 0.6 % (0.2-2.0); Eosinophils Absolute Auto 0.2 10^3/uL (0.0-0.7); Eosinophils Percent Auto 4.6 % (0.9-7.0); Hematocrit 31.5 % (36.0-48.0); Hemoglobin 10.1 g/dL (12.0-16.0); Immature Granulocytes Abs Auto 0.03 10^3/uL (0.00-0.03); Immature Granulocytes Pct Auto 0.6 % (0.0-0.5); Lymphocytes Absolute Auto 1.3 10^3/uL (1.2-3.8); Lymphocytes Percent Auto 27.3 % (20.5-60.0); Mean Corpuscular HGB Conc 32.1 g/dL (29.9-35.2); Mean Corpuscular Hemoglobin 30.1 pg (26.7-34.0); Mean Platelet Volume 10.4 fL (9.5-13.5); Monocytes Absolute Auto 0.5 10^3/uL (0.3-0.8); Monocytes Percent Auto 10.9 % (1.7-12.0); Neutrophils Absolute Auto 2.7 10^3/uL (1.4-6.5); Platelet Count 194 10^3/uL (150-450); Red Blood Count 3.35 10^6/uL (4.20-5.40); Red Cell Distribution Width 14.8 % (11.0-15.0); White Blood Count 4.8 10^3/uL (4.0-11.0)
[2025-01-03 22:23] LABS: Glucometer 146 mg/dL (74-106)
--- NOTE | 2025-01-03 22:23 | ED.AMS1 ---
HPI - Altered Mental Status General Chief Complaint: Altered Mental Status Stated Complaint: ALTERED MENTAL STATUS Time Seen by Provider: 01/03/25 22:00 Source: caregiver Mode of arrival: ambulance History of Present Illness HPI narrative: 84-year-old female to the emergency department with chief complaint of altered mental status. She resides in a half-way. They noticed today she had decreased activity level. Increasing confusion. She was given a oxycodone and went down for a nap at 6 PM. When she woke up from that nap she was more confused than when they put her to bed. She is normally alert and oriented x 4. She is only alert and oriented x 1 today. No known falls or injuries. No fever. She has not been ill. Patient has no complaints. Related Data Home Medications ?Medication ?Instructions ?Recorded ?Confirmed aspirin 81 mg tablet,delayed 81 mg PO DAILY 04/26/23 01/03/25 release atorvastatin 80 mg tablet 80 mg PO DAILY 04/26/23 01/03/25 insulin lispro 100 unit/mL 6 unit subcut BIDWM 04/26/23 01/03/25 subcutaneous pen theophylline 400 mg 400 mg PO .QHS 04/26/23 01/03/25 tablet,extended release 24 hr fluticasone furoate 200 1 inh inhalation Q24H 11/24/24 01/03/25 mcg-vilanterol 25 mcg/dose inhalation powder (Breo Ellipta) insulin glargine 100 unit/mL (3 46 unit subcut .qhs 11/24/24 01/03/25 mL) subcutaneous pen (Lantus Solostar U-100 Insulin) montelukast 10 mg tablet 10 mg PO .QHS 11/24/24 01/03/25 pregabalin 75 mg capsule (Lyrica) 75 mg PO DAILY 11/24/24 01/03/25 acetaminophen 500 mg tablet 1,000 mg PO .q8hr PRN pain 01/02/25 01/03/25 albuterol 90 mcg/actuation aerosol 90 mcg inhalation Q4H PRN sob 01/02/25 01/03/25 inhaler artificial 2 drp ophthalmic (eye) TID PRN dry 01/02/25 01/03/25 tears([id number]) eye(s) 0.1 %-0.3 %-0.2 % eye drops (GenTeal Tears Moderate) carvedilol 12.5 mg tablet 25 mg PO BID 01/02/25 01/03/25 hydroxyzine HCl 25 mg tablet 25 mg PO QID PRN itching 01/02/25 01/03/25 lisinopril 40 mg tablet 40 mg PO DAILY 01/02/25 01/03/25 loratadine 10 mg tablet 10 mg PO DAILY 01/02/25 01/03/25 ondansetron 4 mg disintegrating 4 mg PO Q6H PRN nausea and vomiting 01/02/25 01/03/25 tablet sennosides 8.6 mg tablet 8.6 mg PO BID 01/02/25 01/03/25 (Black-Draught Lax-Senna) Previous Rx's ?Medication ?Instructions ?Recorded food supplemt, lactose-reduced 1 ea PO BID #5,688 mL 12/09/24 (Ensure Active Protein-Muscle oral liquid) pantoprazole 40 mg tablet,delayed 40 mg PO DAILY #30 tabs 12/09/24 release (Protonix) baclofen 10 mg tablet 10 mg PO TID #0 tabs 01/02/25 oxycodone 5 mg tablet 5 mg PO Q6H PRN pain 3 days #10 01/02/25 tabs Allergies Allergy/AdvReac Type Severity Reaction Status Date / Time adhesive tape Allergy Unknown rash Verified 01/02/25 07:16 povidone-iodine (From Allergy Unknown Rash Verified 01/02/25 07:16 Betadine) red dye Allergy Unknown Rash Verified 01/02/25 07:16 Sulfa (Sulfonamide Allergy Unknown Rash Verified 01/02/25 07:16 Antibiotics) tetracycline Allergy Unknown Rash Verified 01/02/25 07:16 Review of Systems ROS Status of ROS 10 or more systems reviewed and unremarkable except as noted in history and below [facility] Medical History Generalized weakness ?R53.1 - Weakness (ICD-10) Altered mental status ?R41.82 - Altered mental status, unspecified (ICD-10) Acute kidney failure ?N17.9 - Acute kidney failure, unspecified (ICD-10) HLD (hyperlipidemia) ?E78.5 - Hyperlipidemia, unspecified (ICD-10) CKD stage 3b, GFR 30-44 ml/min ?N18.32 - Chronic kidney disease, stage 3b (ICD-10) Constipation due to opioid therapy ?K59.03 - Drug induced constipation (ICD-10) ?T40.2X5A - Adverse effect of other opioids, initial encounter (ICD-10) Chronic use of opiate drug for therapeutic purpose ?Z79.891 - intermediate card tender (current) use of opiate analgesic (ICD-10) Lumbar stenosis with neurogenic claudication ?M48.062 - Spinal stenosis, lumbar region with neurogenic claudication (ICD-10) Diabetes ?E11.9 - Type 2 diabetes mellitus without complications (ICD-10) COPD (chronic obstructive pulmonary disease) ?J44.9 - Chronic obstructive pulmonary disease, unspecified (ICD-10) HTN (hypertension) ?I10 - Essential (primary) hypertension (ICD-10) Chronic prescription opiate use ?Z79.891 - intermediate card tender (current) use of opiate analgesic (ICD-10) Lumbar radiculopathy, chronic ?M54.16 - Radiculopathy, lumbar region (ICD-10) Complication of electrolyte disorder ?E87.8 - Other disorders of electrolyte and fluid balance, not elsewhere classified (ICD-10) Concussion ?S06.0XAA - Concussion with loss of consciousness status unknown, initial encounter (ICD-10) Bilateral knee pain ?M25.561 - Pain in right knee (ICD-10) ?M25.562 - Pain in left knee (ICD-10) Muscle spasm ?M62.838 - Other muscle spasm (ICD-10) Lumbar spondylosis ?M47.816 - Spondylosis without myelopathy or radiculopathy, lumbar region (ICD-10) Knee osteoarthritis ?M17.9 - Osteoarthritis of knee, unspecified (ICD-10) Chronic kidney disease ?N18.9 - Chronic kidney disease, unspecified (ICD-10) Acute neck pain ?M54.2 - Cervicalgia (ICD-10) Head injury due to trauma ?S09.90XA - Unspecified injury of head, initial encounter (ICD-10) Urinary tract infection ?N39.0 - Urinary tract infection, site not specified (ICD-10) GERD without esophagitis ?K21.9 - Gastro-esophageal reflux disease without esophagitis (ICD-10) Gout due to renal impairment ?M10.30 - Gout due to renal impairment, unspecified site (ICD-10) Osteoarthritis ?M19.90 - Unspecified osteoarthritis, unspecified site (ICD-10) Anemia ?D64.9 - Anemia, unspecified (ICD-10) Carpal tunnel syndrome ?G56.00 - Carpal tunnel syndrome, unspecified upper limb (ICD-10) Acid reflux ?K21.9 - Gastro-esophageal reflux disease without esophagitis (ICD-10) Cirrhosis of liver ?K74.60 - Unspecified cirrhosis of liver (ICD-10) Kidney stone ?N20.0 - Calculus of kidney (ICD-10) Kidney failure ?N19 - Unspecified kidney failure (ICD-10) Asthma ?J45.909 - Unspecified asthma, uncomplicated (ICD-10) High cholesterol ?E78.00 - Pure hypercholesterolemia, unspecified (ICD-10) Surgical History History of appendectomy ?Z90.49 - Acquired absence of other specified parts of digestive tract (ICD-10) History of hysterectomy ?Z90.710 - Acquired absence of both cervix and uterus (ICD-10) History of neck surgery ?Z98.890 - Other specified postprocedural states (ICD-10) Hx of cholecystectomy ?Z90.49 - Acquired absence of other specified parts of digestive tract (ICD-10) History of lumbar laminectomy ?Z98.890 - Other specified postprocedural states (ICD-10) History of cardiac cath ?Z98.890 - Other specified postprocedural states (ICD-10) Family History Father Family history of CHF (congestive heart failure) Family history of COPD (chronic obstructive pulmonary disease) Family history of cancer Family history of diabetes mellitus Family history of hypertension Mother Family history of diabetes mellitus Family history of hypertension Family history of myocardial infarction Sister Family history of myocardial infarction Social History Within the past year, how often did you have a drink containing alcohol: never Score interpretation: A score less than 3 is consistent with normal alcohol consumption. Smoking status: Never smoker Non-prescribed substance use: denies use Previous occupational history: retired Highest level of school completed/degree received: don't know Are you now , , , , never or living with a partner: Little interest or pleasure in doing things: not at all Feeling down, depressed, or hopeless: not at all Do you think of yourself as: straight/heterosexual Gender Identity: female Exam Narrative Exam Narrative: VITALS: I have reviewed the triage vital signs. GENERAL: Morbidly obese, chronically ill-appearing elderly female NEURO: Alert and oriented x1. Moves all extremities. Motor strength and sensation are intact in the upper and lower extremities bilaterally. Face is symmetric and expressive. No dysarthria. No aphasia. No ataxia. NIHSS 2 for orientation questions. EYES: PERRL. No scleral icterus or conjunctival injection. No discharge. HENT: Normocephalic, atraumatic. Hearing is grossly intact. Nares grossly patent and without discharge. Mucous membranes moist. NECK: No JVD. Patient moves neck without restriction. CARDIO: Rhythm regular. Normal rate. No murmur, rub, or gallop. Pulses equal bilaterally in the upper and lower extremity. No lower extremity edema. PULM: Lungs clear to auscultation in all [place]. No wheezes, rales, or rhonchi. No conversational dyspnea. No splinting, stridor, or accessory muscle use. GI/: Abdomen is soft and non-tender. Normoactive bowel sounds. EXTREMITIES: Symmetric muscle bulk. No joint swelling. No clubbing, cyanosis, or deformity. SKIN: Warm and dry. Normal turgor. No rash or lesions appreciated. PSYCH: Mood, affect, and interaction is appropriate to the setting. Constitutional Vital Signs, click to edit/add: Last Vital Signs Temp 99.3 F 01/03/25 21:54 Pulse 59 L 01/03/25 23:30 Resp 15 01/03/25 23:30 BP 175/74 H 01/03/25 23:30 Pulse Ox 98 01/03/25 23:30 O2 Del Method Nasal Cannula 01/03/25 22:00 O2 Flow Rate 2 01/03/25 22:00 Course Vital Signs Vital signs: Vital Signs Temperature 99.3 F 01/03/25 21:54 Pulse Rate 58 L 01/03/25 21:54 Respiratory Rate 16 01/03/25 21:54 Blood Pressure 206/79 H 01/03/25 21:54 Pulse Oximetry 93 L 01/03/25 21:54 Oxygen Delivery Method Nasal Cannula 01/03/25 21:54 Oxygen Delivery Flow Rate 2 01/03/25 21:54 Temperature 99.3 F 01/03/25 21:54 Pulse Rate 59 L 01/03/25 23:30 Respiratory Rate 15 01/03/25 23:30 Blood Pressure 175/74 H 01/03/25 23:30 Pulse Oximetry 98 01/03/25 23:30 Oxygen Delivery Method Nasal Cannula 01/03/25 22:00 Oxygen Delivery Flow Rate 2 01/03/25 22:00 MDM - Altered Mental Status MDM Narrative Medical decision making narrative: Elderly female to the emergency department chief complaint of mental status. She is hypertensive, otherwise stable vitals. She has no focal neurologic deficits to suggest stroke. Differential favors encephalopathy or ischemic stroke. Obtain a CT scan of the head, basic labs, urinalysis. Thrombolytics were not given to this patient as her last known normal was outside the inclusion window. Lab work reviewed and noted. She does have a urinary tract infection. CT head with stable ventriculomegaly, question raised of NPH. No acute findings today however. Chest x-ray without acute findings. Rocephin was initiated for UTI. Patient will be admitted to the hospital for further treatment of UTI causing weakness, confusion. Medical Records Attestation: I reviewed the patient's medical records. Lab Data Attestation: I reviewed the patient's lab results. Labs: Lab Results 01/03/25 01/03/25 01/03/25 Range/Units 22:02 22:22 23:10 WBC 4.8 (4.0-11.0) 10^3/uL RBC 3.35 L (4.20-5.40) 10^6/uL Hgb 10.1 L (12.0-16.0) g/dL Hct 31.5 L (36.0-48.0) % MCV 94.0 (81.0-99.0) fL MCH 30.1 (26.7-34.0) pg MCHC 32.1 (29.9-35.2) g/dL RDW 14.8 (11.0-15.0) % Plt Count 194 (150-450) 10^3/uL MPV 10.4 (9.5-13.5) fL Neut % (Auto) 56.0 (43.0-75.0) % Lymph % (Auto) 27.3 (20.5-60.0) % [place] % (Auto) 10.9 (1.7-12.0) % Eos % (Auto) 4.6 (0.9-7.0) % Baso % (Auto) 0.6 (0.2-2.0) % Neut # (Auto) 2.7 (1.4-6.5) 10^3/uL Lymph # (Auto) 1.3 (1.2-3.8) 10^3/uL [place] # (Auto) 0.5 (0.3-0.8) 10^3/uL Eos # (Auto) 0.2 (0.0-0.7) 10^3/uL Baso # (Auto) 0.0 (0.0-0.1) 10^3/uL Abs Immat Gran (auto) 0.03 (0.00-0.03) 10^3/uL Imm/Tot Granulo (auto) 0.6 H (0.0-0.5) % PT 11.2 (9.0-11.6) sec INR 1.06 Sodium 140 (136-145) mmol/L Potassium 4.1 (3.5-5.1) mmol/L Chloride 107 (98-107) mmol/L Carbon Dioxide 29.9 (21.0-32.0) mmol/L Anion Gap 7.2 BUN 23.0 H (7.0-18.0) mg/dL Creatinine 1.26 H (0.55-1.02) mg/dL Est GFR ( Amer) 49 L (>=60 mL/min/1.73m^2) Est GFR (Non-Af Amer) 41 L (>=60 mL/min/1.73m^2) BUN/Creatinine Ratio 18.3 Glucose 163 H (74-106) mg/dL Calcium 9.4 (8.5-10.1) mg/dL Troponin I High Sens 33.4 (4.0-51.3) pg/mL Urine Color Lt. yellow (YELLOW) Urine Clarity Cloudy A (CLEAR) Urine pH 5.5 (5.0-9.0) Ur Specific [place] 1.025 (1.005-1.025) Urine Protein >=300 A (NEG/TRACE) mg/dL Urine Glucose (UA) Negative (NEGATIVE) mg/dL Urine Ketones Negative (NEGATIVE) mg/dL Urine Occult Blood Small A (NEGATIVE) Urine Nitrite Negative (NEGATIVE) Urine Bilirubin Negative (NEGATIVE) Urine Urobilinogen 0.2 (0.2-1.0) EU/dL Ur Leukocyte Esterase Moderate A (NEGATIVE) Urine RBC 0-2 (0-2) #/HPF Urine WBC >100 A (NONE SEEN) #/HPF Ur Squamous Epith Cells Few A (NONE/RARE) #/LPF Urine Crystals None seen (None Seen) #/HPF Urine Bacteria Trace A (NONE SEEN) #/HPF Urine Casts None seen (NONE SEEN) #/LPF Urine Mucus Trace A (NONE SEEN) Ur Culture Indicated? Yes-[facility] [place] Quant <3 mg/dL Influenza Type A Ag Negative Influenza Type B Ag Negative SARS-CoV-2 Ag (CV2AG) Negative (NEGATIVE) POC Glucose 146 H (74-106) mg/dL Imaging Data CT scan - head: Attestation: I have reviewed the pertinent imaging results. Radiologist's impression: Documents located in PACS ECG Data Attestation: I personally reviewed and interpreted this ECG as follows: (Normal sinus rhythm at a rate of 58. No STEMI. Normal QTc at 472.) Discharge Plan Discharge Chief Complaint: Altered Mental Status Clinical Impression: Urinary tract infection, Acute metabolic encephalopathy, Generalized weakness Patient Disposition: Admitted as Observation Time of Disposition Decision: 01:03 Condition: Fair Mode of Transportation: Private Vehicle Prescriptions / Home Meds: No Action aspirin 81 mg tablet,delayed release (DR/EC) 81 mg PO DAILY atorvastatin 80 mg tablet 80 mg PO DAILY insulin lispro 100 unit/mL insulin pen 6 unit subcut BIDWM theophylline 400 mg tablet extended release 24 hr 400 mg PO .QHS montelukast 10 mg tablet 10 mg PO .QHS fluticasone furoate-vilanterol [Breo Ellipta] 200-25 mcg/dose blister with device 1 inh INHALATION Q24H pregabalin [Lyrica] 75 mg capsule 75 mg PO DAILY insulin glargine [Lantus Solostar U-100 Insulin] 100 unit/mL (3 mL) insulin pen 46 unit SUBCUT .qhs Ensure Active Protein-Muscle Liquid 1 ea PO BID Qty: 5688 0RF pantoprazole [Protonix] 40 mg tablet,delayed release (DR/EC) 40 mg PO DAILY Qty: 30 11RF lisinopril 40 mg tablet 40 mg PO DAILY loratadine 10 mg tablet 10 mg PO DAILY ondansetron 4 mg tablet,disintegrating 4 mg PO Q6H PRN (Reason: nausea and vomiting) hydroxyzine HCl 25 mg tablet 25 mg PO QID PRN (Reason: itching) sennosides [Black-Draught Lax-Senna] 8.6 mg tablet 8.6 mg PO BID carvedilol 12.5 mg Tablet 25 mg PO BID acetaminophen 500 mg tablet 1,000 mg PO .q8hr PRN (Reason: pain) albuterol 90 mcg/actuation aerosol 90 mcg inhalation Q4H PRN (Reason: sob) artificial tear([id number]) [GenTeal Tears Moderate] 0.1-0.3-0.2 % drops 2 drp ophthalmic (eye) TID PRN (Reason: dry eye(s)) oxycodone 5 mg tablet 5 mg PO Q6H PRN (Reason: pain) 3 Days Qty: 10 0RF baclofen 10 mg tablet 10 mg PO TID Qty: 0 0RF Print Language: Somali Referrals: SHANDA CLARK [Primary Care Provider] - 1 week
[2025-01-03 22:34] LABS: Anion Gap 7.2; BUN Creatinine Ratio 18.3; Calcium 9.4 mg/dL (8.5-10.1); Carbon Dioxide 29.9 mmol/L (21.0-32.0); Chloride 107 mmol/L (98-107); Estimated GFR (African America 49 (>=60 mL/min/1.73m^2); Estimated GFR (Non-African Ame 41 (>=60 mL/min/1.73m^2); Glucose 163 mg/dL (74-106); Potassium 4.1 mmol/L (3.5-5.1); Sodium 140 mmol/L (136-145)
[2025-01-03 22:40] LABS: INR 1.06; Prothrombin Time 11.2 sec (9.0-11.6)
[2025-01-03 22:42] LABS: Troponin I High Sensitivity 33.4 pg/mL (4.0-51.3)
[2025-01-03 22:56] LABS: Ethanol <3 mg/dL
[2025-01-03 23:30] LABS: Bilirubin Urine NEGATIVE (NEGATIVE); Blood Urine SMALL (NEGATIVE); Clarity Urine CLOUDY (CLEAR); Color Urine LT. YELLOW (YELLOW); Glucose Urine UA NEGATIVE (NEGATIVE); Ketones Urine NEGATIVE (NEGATIVE); Leukocyte Esterase Urine MODERATE (NEGATIVE); Nitrite Urine NEGATIVE (NEGATIVE); Protein Urine >=300 mg/dL (NEG/TRACE); Specific Gravity Urine 1.025 (1.005-1.025); Urobilinogen Urine 0.2 EU/dL (0.2-1.0); pH Urine 5.5 (5.0-9.0)
[2025-01-03 23:36] LABS: Urine Microscopic Indicated YES
[2025-01-03 23:38] LABS: Influenza Virus A Antigen Negative; Influenza Virus B Antigen Negative; Internal Control Within Normal Limits; SARS-CoV-2 Ag NEGATIVE (NEGATIVE)
[2025-01-03 23:45] LABS: Bacteria Urine TRACE #/HPF (NONE SEEN); Cast Seen? NONE SEEN #/LPF (NONE SEEN); Crystals Seen? None Seen #/HPF (None Seen); Mucus Urine TRACE (NONE SEEN); RBC Urine 0-2 #/HPF (0-2); Squamous Epithelial Cell Urine FEW #/LPF (NONE/RARE); WBC Urine >100 #/HPF (NONE SEEN)
[2025-01-03 23:48] LABS: Urine Culture Indicated YES-FRMC
[2025-01-04] VITALS (39 sets, daily range): BP systolic 125–211; BP diastolic 62–90; PULSE 53–99; TEMP 36.6–37.1; O2SAT 90–98; BMI 105.2
[2025-01-04] MEDS: CEFTRIAXONE 1,000 MG in 0.9 % SODIUM CHLORIDE 50 ML 100 MG IV ×2 (00:14→22:08)
[2025-01-04] MEDS: HYDRALAZINE HCL 20 MG/ML VIAL 10 MG IVP (02:51)
--- OUTSIDE RECORDS SUMMARY | 2025-01-04 04:41 | XMS_ITS | CCD ---
Author Organization [facility] Care Team Providers Care Warehouse Associate Name Role Phone ELTAHAWY, EHAB A Attending [...] Care Provider MD Gia Munoz Attending Provider [phone] FURLONG, FERNIE Ricketts Attending Unavailable FURLONG, [...] Care Unavailable Furlong DOFernie Primary Care Provider Kirsten RAND, Christian Rodríguez Attending Unavailable Kirsten RAND, Andgolden Rodríguez Attending Unavailable Kirsten RAND, Nenarius Rodríguez Attending Unavailable Kirsten RAND, Christian Rodríguez Attending Unavailable Furlong Fernie CAMACHO Primary Care Provider [phone] Gaetano Viera DO Attending Provider Unavailab le [...] Care Unavailable TAMMY, GIA Referring Unavailable FURLONG, FERNEI G Primary Care Unavailable FURLONG, FERNIE G [...] Adhesive Tape Substance Allergy 04-24-20 13 [facility] Povidone-Iodine (1 source) Povidone-Iodine Drug Allergy 04-24-20 13 [facility] Sulfonamides (antibiotic) (1 source) Sulfonamides (Antibiotic) Drug Allergy 04-24-20 13 [facility] Tetracyclines (antibiotic) (1 source) Tetracyclines Drug Allergy 04-24-20 13 [facility] (20 sources) Povidone-Iodine; Translations: [POVIDONE-IODINE] Drug Allergy 11-25-19 15 [facility]ository (10 sources) Sulfonamides (Antibiotic) Propensity to adverse reactions [employer] Other (13 sources) Tetracycline Drug Allergy 11-16-19 24 [facility] (12 sources) Adhesive 1 x6yd Drug allergy 11-08-20 23 [facility] (12 sources) Amlodipine & Diet Manage Prod Drug allergy 11-08-20 23 [facility] (2 sources) Povidone-Iodine; Translations: [Betadine] Drug Allergy 04-23-[address] [facility] Repository (20 sources) Contrast media; Translations: [RED DYE] Drug allergy (disorder) 05-04-20 [address] [facility] Repository (4 sources) Desonide Drug Allergy 04-23-20 [address] [facility] Repository (1 source) Sulfonamides (Antibiotic) Drug allergy (disorder) 04-23-20 13 [facility] (1 source) Tetracycline Drug Allergy 04-23-20 13 [facility] (20 sources) Adhesive agent; Translations: [ADHESIVE] Propensity to adverse reactions to drug (disorder) 11-25-19 15 Itching, Other (See Comments) [facility] Repository (20 sources) Sulfonamides (Antibiotic); Translations: [SULFA (SULFONAMIDE ANTIBIOTICS)] Propensity to adverse reactions to drug (disorder) 11-25-19 15 [facility] Repository (20 sources) Tetracyclines; Translations: [TETRACYCLINES] Propensity to adverse reactions to drug (disorder) 11-25-19 15 [facility] Repository (20 sources) dilTIAZem; Translations: [DILTIAZEM] Drug Allergy 09-01-20 22 [facility] Repository (20 sources) Linagliptin; Translations: [LINAGLIPTIN] [...] 01, 2024 12:00am take 1 tablet by wilal once daily, then take 2 tablets by [...] as needed Orally TWICE A DAY Active [id number] 200 actuat albuterol 0.09 mg/actuat metered dose [...] 11-18-2024 blood-glucose meter (TRUE METRIX GLUCOSE METER) [facility] [place] by miscellaneous route in the [...] April 30, 2024 11:00pm Fish,Bora,Flax Oils-Om3,6,9n o1 ([place] 3-6-9) 1,200 mg capsule (2 sources) Start: 05-01-2024 Fish,Bora,Flax Oils-Om3,6,9no1 ([place] 3-6-9) 1,200 mg capsule Active CAP PO April 30, 2024 11:00pm Start: 05-01-2024 Fish,Bora,Flax Oils-Om3,6,9no1 ([place] 3-6-9) 1,200 mg capsule Active CAP PO [...] disease, with long-term current use of insulin ([facility]) Inject 46 Units under the skin [...] For Her 50 + - Orally Active chczehrx-xqbd-LH-calci um &mins (THERAGRAN-M) 9 mg iron-400 mcg tablet (20 sources) vhfxhufi-fjrb-ZB -calc ium &mins (THERAGRAN-M) 9 mg iron-400 mcg tablet Take 1 tablet by mouth in the morning. Active dbjjsdsk-yypu-DC -calcium &mins (THERAGRAN-M) 9 mg iron-400 mcg [...] 5 days. 20 tablet 12/10/2024 12/15/2024 Active [place] 3-6-9 Complex - (10 sources) [place] 3-6-9 Comp fawad - Orally Active omega-3 [...] morning. 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 PERFORMED BY: [address] [place] [address] PATHOLOGIST CONCERT PROMOTER MARIO PUTNAM M.D. Normal [facility] Comment on above: Performed By: #### C UU #### [facility] [address] MAGNESIUMon 11-17-2024 Magnesium [Mass/Vol] 1.8 mg/dL Normal 1.8-2.6 [facility] Comment on above: Performed By: #### 1 9123-9 ####[facility] ([id number])[address] [place] [address] MAGNESIUMon 11-10-2024 Magnesium [Mass/Vol] 1.8 mg/dL Normal 1.8-2.6 [facility] Comment on above: Performed By: #### 1 9123-9 ####[facility] ([id number])[address] [place] [address] MAGNESIUMon 11-03-2024 Magnesium [Mass/Vol] 1.7 mg/dL Low 1.8-2.6 [facility] Comment on above: Performed By: #### 1 9123-9 ####[facility] ([id number])[address] [place] [address] MAGNESIUMon 10-27-2024 Magnesium [Mass/Vol] 1.8 mg/dL Normal 1.8-2.6 [facility] Comment on above: Performed By: #### 1 9123-9 ####[facility] ([id number])[address] [place] [address] 37792 MAGNESIUMon 10-20-2024 Magnesium [Mass/Vol] 1.9 mg/dL Normal 1.8-2.6 [facility] Comment on above: Performed By: #### 1 9123-9 ####[facility] ([id number])[address] [place] [address] MAGNESIUMon 10-13-2024 Magnesium [Mass/Vol] 1.8 mg/dL Normal 1.8-2.6 [facility] Comment on above: Performed By: #### 1 9123-9 ####[facility] ([id number])[address] [place] [address] 05808 MAGNESIUMon 10-06-2024 Magnesium [Mass/Vol] 1.7 mg/dL Low 1.8-2.6 [facility] Comment on above: Performed By: #### 1 9123-9 ####[facility] ([id number])[address] [place] [address] MAGNESIUMon 09-29-2024 Magnesium [Mass/Vol] 1.7 mg/dL Low 1.8-2.6 [facility] Comment on above: Performed By: #### 1 9123-9 ####[facility] ([id number])[address] [place] [address] Glucose Glucometer (BldC) [M ass/Vol]on 09-26-2024 Glucose [Mass/Vol] 154 mg/dL High 65-99 [facility] Surgical Pathologyon 024 Surgical Pathology Normal [facility] Comment on above: Result Comment: [facility] [address] [place] [address] Surgical Pathology ConsultationPatient Name:ADORE WOLFF:1940 (Age: 83)Gender:FTaken:4Reported:4Physician(s):Daniel Guerrero MD ([phone])Copy To: Rec. #:[id number]: #[id number] Pathologic Diagnosis1. Duodenum, second portion, biopsy: Duodenal mucosa with no significant diagnostic abnormality. No evidence of celiac disease.2. Duodenum, bulb, biopsy: Ectopic gastric mucosa.3. Stomach, polypectomy: Fundic gland polyp.4. Esophagus, distal, biopsy: Junctional mucosa with no significant diagnostic abnormality. No evidence of intestinal metaplasia. Report Electronically Signed Outrg/4Rpaula Coto MDInterpretation performed at [facility], [address] [place] [address], License number: [id number].Clinical History Ross's esophagus.Gross Description1. Received in formalin labeled KUSS, second portion of duodenum are two light abbott soft tissue bits, 0.2 cm each. The specimen is filtered and entirely submitted in a single cassette. (1, ns, [id number],m3) DM.2. .Received in formalin labeled KUSS, duodenal bulb biopsies are three light abbott soft tissue bits, 0.2 cm each. The specimen is filtered and entirely submitted in a single cassette. (1, ns, [id number],m3) DM.3. Received in formalin labeled KUSS, fundic gland polyp is a light abbott soft tissue bit, 0.3 cm. The specimen is filtered and entirely submitted in a single cassette. (1, ns, [id number],m3) DM.4. Received in formalin labeled KUSS, distal esophageal biopsy are three pale-abbott soft tissue bits, 0.2 cm each. The specimen is filtered and entirely submitted in a single cassette. (1, ns, [id number],m3) DM.dm/09/27/2024GRSpecimen(s) Received1: Second portion of duodenum biopsies2: Duodenal bulb biopsy3: Fundic gland polyp4: Esophageal distal biopsyFee Codes(s):1; 630786; 302674; 142898; 29353 MAGNESIUMon 09-22-2024 Magnesium [Mass/Vol] 1.8 mg/dL Normal 1.8-2.6 [facility] Comment on above: Performed By: #### 1 9123-9 ####[facility] ([id number])[address] [place] [address] MAGNESIUMon 09-15-2024 Magnesium [Mass/Vol] 1.8 mg/dL Normal 1.8-2.6 [facility] Comment on above: Performed By: #### 1 9123-9 ####[facility] ([id number])[address] [place] [address], [place] [address] MAGNESIUMon 09-08-2024 Magnesium [Mass/Vol] 1.7 mg/dL Low 1.8-2.6 [facility] Comment on above: Performed By: #### 1 9123-9 ####[facility] ([id number])[address] [place] [address], [place] [address] MAGNESIUMon 09-01-2024 Magnesium [Mass/Vol] 1.8 mg/dL Normal 1.8-2.6 [facility] Comment on above: Performed By: #### 1 9123-9 ####[facility] ([id number])[address] [place] [address], [place] [address] MAGNESIUMon 08-25-2024 Magnesium [Mass/Vol] 1.6 mg/dL Low 1.8-2.6 [facility] Comment on above: Performed By: #### 1 9123-9 ####[facility] ([id number])[address] [place] [address], [place] [address] MAGNESIUMon 08-18-2024 Magnesium [Mass/Vol] 1.6 mg/dL Low 1.8-2.6 [facility] Comment on above: Performed By: #### 1 9123-9 ####[facility] ([id number])[address] [place] [address], [place] [address] MAGNESIUMon 08-11-2024 Magnesium [Mass/Vol] 1.6 mg/dL Low 1.8-2.6 [facility] Comment on above: Performed By: #### 1 9123-9 ####[facility] ([id number])[address] [place] [address], [place] [address] MAGNESIUMon 08-04-2024 Magnesium [Mass/Vol] 1.5 mg/dL Low 1.8-2.6 [facility] Comment on above: Performed By: #### 1 9123-9 ####[facility] ([id number])[address] [place] [address] MAGNESIUMon 07-28-2024 Magnesium [Mass/Vol] 1.5 mg/dL Low 1.8-2.6 [facility] Comment on above: Performed By: #### 1 9123-9 ####[facility] ([id number])[address] [place] [address] MAGNESIUMon 07-21-2024 Magnesium [Mass/Vol] 1.6 mg/dL Low 1.8-2.6 [facility] Comment on above: Performed By: #### 1 9123-9 ####[facility] ([id number])[address] [place] [address] MAGNESIUMon 07-15-2024 Magnesium [Mass/Vol] 1.5 mg/dL Low 1.8-2.6 [facility] Comment on above: Performed By: #### 1 9123-9 ####[facility] ([id number])[address] [place] [address], [place] [address] MAGNESIUMon 07-07-2024 Magnesium [Mass/Vol] 1.6 mg/dL Low 1.8-2.6 [facility] Comment on above: Performed By: #### 1 9123-9 ####[facility] ([id number])[address] [place] [address], [place] [address] MAGNESIUMon 06-30-2024 Magnesium [Mass/Vol] 1.6 mg/dL Low 1.8-2.6 [facility] Comment on above: Performed By: #### 1 9123-9 ####[facility] ([id number])[address] [place] [address] MAGNESIUMon 06-23-2024 Magnesium [Mass/Vol] 1.7 mg/dL Low 1.8-2.6 [facility] Comment on above: Performed By: #### 1 9123-9 ####[facility] ([id number])[address] [place] [address] MAGNESIUMon 06-16-2024 Magnesium [Mass/Vol] 1.7 mg/dL Low 1.8-2.6 [facility] Comment on above: Performed By: #### 1 9123-9 ####[facility] ([id number])[address] [place] [address] MAGNESIUMon 06-09-2024 Magnesium [Mass/Vol] 1.7 mg/dL Low 1.8-2.6 [facility] Comment on above: Performed By: #### 1 9123-9 ####[facility] ([id number])[address] [place] [address] MAGNESIUMon 06-02-2024 Magnesium [Mass/Vol] 1.6 mg/dL Low 1.8-2.6 [facility] Comment on above: Performed By: #### 1 9123-9 ####[facility] ([id number])[address] [place] [address] 18490 URINE CULTUREon 05-30-2024 Bacteria identified Cx Nom [...] F TRIMETH/SULFAMETHOXAZOL E S <=/19 F Susceptible [facility] Comment on above: Performed By: #### 6 30-4 #### [facility] ([id number]) [address] [facility], [address] [place] [address] POCT Hemoglobin A1con 2023 HbA1c (Bld) [Mass fraction] 7.1 g/dL Abnormal 4 - 7 g/dL [facility] Interpretation and review of laboratory results Abnormal [facility] POCT urinalysis dipstick onl yon 05-27-2024 Appearance (U) cloudy [facility] External Poct Urine Bilirubin Negative [facility] External Poct Urine Blood Trace [facility] External Poct Urine Color yellow [facility] External Poct Urine Glucose Negative [facility] External Poct Urine Ketones Negative [facility] External Poct Urine Leukocyte Esterase Moderate [facility] External Poct Urine Nitrite Negative [facility] External Poct Urine Ph 5.5 [facility] External Poct Urine Protein 3+ [facility] Comment on above: >=300 External Poct Urine Specific Santo 1.025 [facility] External Poct Urine Urobilinogen 0.2 [facility] URINE CULTUREon 05-27-2024 Bacteria identified Cx Nom (U) CULTURE RESULTS MULTIPLE SPECIES PRESENT. PROBABLE COLLECTION CONTAMINATION. SUGGEST REPEAT SPECIMEN. Normal [facility] Comment on above: Performed By: #### 6 30-4 #### [facility] ([id number]) [address] [facility], [address] [place] [address] MAGNESIUMon 05-26-2024 Magnesium [Mass/Vol] 1.6 mg/dL Low 1.8-2.6 [facility] Comment on above: Performed By: #### 1 9123-9 ####[facility] ([id number])[address] [place] [address] MAGNESIUMon 05-19-2024 Magnesium [Mass/Vol] 1.7 mg/dL Low 1.8-2.6 [facility] Comment on above: Performed By: #### 1 9123-9 ####[facility] ([id number])[address] [place] [address] MAGNESIUMon 05-12-2024 Magnesium [Mass/Vol] 1.6 mg/dL Low 1.8-2.6 [facility] Comment on above: Performed By: #### 1 9123-9 ####[facility] ([id number])[address], [address] [place] [address] MAGNESIUMon 05-05-2024 Magnesium [Mass/Vol] 1.4 mg/dL Low 1.8-2.6 [facility] Comment on above: Performed By: #### 1 9123-9 ####[facility] ([id number])[address] [place] [address] MAGNESIUMon 04-28-2024 Magnesium [Mass/Vol] 1.5 mg/dL Low 1.8-2.6 [facility] Comment on above: Performed By: #### 1 9123-9 ####[facility] ([id number])[address] [place] [address] 17050 COMPLETE BLOOD COUNTon 04-21 Erythrocyte distribution width (RBC) [Ratio] 16.6 % High 11.5-15.0 [facility] Comment on above: Performed By: #### C BC, UPCR, FEPR, 90461-7, RENAL, 3084-1, 2276-4, 2731-8, 21838-7 ####[facility] ([id number])[address], [address] [place] [address] Hematocrit (Bld) [Volume fraction] 33.8 % Low 35-47 [facility] Comment on above: Performed By: #### C BC, UPCR, FEPR, 64984-1, RENAL, 3084-1, 2276-4, 2731-8, 12663-2 ####[facility] ([id number])[address], [address] [place] [address] Hemoglobin (Bld) [Mass/Vol] 11.0 g/dL Low 11.7-15.5 [facility] Comment on above: Performed By: #### C BC, UPCR, FEPR, 22049-1, RENAL, 3084-1, 2276-4, 2731-8, 61209-0 ####[facility] ([id number])[address], [address], [place] [address] MCH (RBC) [Entitic mass] 30.0 pg Normal 27-34 [facility] Comment on above: Performed By: #### C BC, UPCR, FEPR, 53813-1, RENAL, 3084-1, 2276-4, 2731-8, 81905-6 ####[facility] ([id number])[address], [address] [place] [address] MCHC (RBC) [Mass/Vol] 32.7 g/dL Normal 32-36 [facility] Comment on above: Performed By: #### C BC, UPCR, FEPR, 52315-1, RENAL, 3084-1, 2276-4, 2731-8, 73689-3 ####[facility] ([id number])[address], [address] [place] [address] MCV (RBC) [Entitic vol] 92 fL Normal 80-100 [facility] Comment on above: Performed By: #### C BC, UPCR, FEPR, 05336-7, RENAL, 3084-1, 2276-4, 2731-8, 48227-9 ####[facility] ([id number])[address], [address] [place] [address] Platelet mean volume (Bld) [Entitic vol] 9.5 fL Normal 7-12 [facility] Comment on above: Performed By: #### C BC, UPCR, FEPR, 07128-2, RENAL, 3084-1, 2276-4, 2731-8, 31085-6 ####[facility] ([id number])[address], [address] [place] [address] Platelets (Bld) [#/Vol] 182 10*3/uL Normal 150-450 [facility] Comment on above: Performed By: #### C BC, UPCR, FEPR, 50563-9, RENAL, 3084-1, 2276-4, 2731-8, 53782-3 ####[facility] ([id number])[address], [address] [place] [address] RBC COUNT 3.68 X10E12/L Low 3.80-5.20 [facility] Comment on above: Performed By: #### C BC, UPCR, FEPR, 48993-6, RENAL, 3084-1, 2276-4, 2731-8, 24229-2 ####[facility] ([id number])[address] [address] [place] [address] WBC (Bld) [#/Vol] 6.2 10*3/uL Normal 4.0-11.0 [facility] Comment on above: Performed By: #### C BC, UPCR, FEPR, 02463-8, RENAL, 3084-1, 2276-4, 2731-8, 92938-4 ####[facility] ([id number])[address] [address] FERRITINon 04-21-2024 Ferritin [Mass/Vol] 113 ng/mL Normal 11-307 [facility] Comment on above: Performed By: #### C BC, UPCR, FEPR, 60312-7, RENAL, 3084-1, 2276-4, 2731-8, 41962-6 ####[facility] ([id number])[address] [address] [place] [address] IRON PROFILEon 04-21-2024 Iron [Mass/Vol] 56 ug/dL Normal 50-170 [facility] Comment on above: Performed By: #### C BC, UPCR, FEPR, 47970-1, RENAL, 3084-1, 2276-4, 2731-8, 21507-9 ####[facility] ([id number])[address], [address] [place] [address] IRON BINDING 307 ug/dL Normal 250-425 [facility] Comment on above: Performed By: #### C BC, UPCR, FEPR, 34815-6, RENAL, 3084-1, 2276-4, 2731-8, 23326-0 ####[facility] ([id number])[address], [address] [place] [address] IRON SATURATION 18 % SATURATION Normal 15-50 [facility] Comment on above: Performed By: #### C BC, UPCR, FEPR, 27870-7, RENAL, 3084-1, 2276-4, 2731-8, 77371-1 ####[facility] ([id number])[address] [address] [place] [address] MAGNESIUMon 04-21-2024 Magnesium [Mass/Vol] 1.4 mg/dL Low 1.8-2.6 [facility] Comment on above: Performed By: #### C BC, UPCR, FEPR, 40899-6, RENAL, 3084-1, 2276-4, 2731-8, 08539-6 ####[facility] ([id number])[address] [address] [place] [address] 21913 PROTEIN CREAT RATIOon 2023 RANDOM URINE PROTEIN 470 mg/L High <120 [facility] Comment on above: Performed By: #### C BC, UPCR, FEPR, 08216-4, RENAL, 3084-1, 2276-4, 2731-8, 80603-0 ####[facility] ([id number])[address] [address] [place] [address] U/PRO/CONTINUOUS PROCESS ROTARY DRUM TANNER RATIO CALC 0.50 High <0.2 [facility] Comment on above: Result Comment: Neph rotic Syndrome is associated with ratios >3.5 Performed By: #### C BC, UPCR, FEPR, 01800-6, RENAL, 3084-1, 2276-4, 2731-8, 20713-0 ####[facility] ([id number])[address], [address], [place] [address] URINE CREATININE,RDM 94.29 mg/dL Normal [facility] Comment on above: Performed By: #### C BC, UPCR, FEPR, 21293-8, RENAL, 3084-1, 2276-4, 2731-8, 76179-9 ####[facility] ([id number])[address], [address], [place] [address] Parathyrin.intact [Mass/Vol] on 04-21-2024 PTH INTACT 168 pg/mL High 12-88 [facility] Comment on above: Performed By: #### C BC, UPCR, FEPR, 06723-7, RENAL, 3084-1, 2276-4, 2731-8, 11498-8 ####[facility] ([id number])[address], [address], [place] [address] RENAL PANELon 04-21-2024 Albumin [Mass/Vol] 3.7 g/dL Normal 3.2-5.3 [facility] Comment on above: Performed By: #### C BC, UPCR, FEPR, 00143-3, RENAL, 3084-1, 2276-4, 2731-8, 71504-7 ####[facility] ([id number])[address], [address], [place] [address] Anion gap [Moles/Vol] 11 mmol/L Normal 5-15 [facility] Comment on above: Performed By: #### C BC, UPCR, FEPR, 70498-2, RENAL, 3084-1, 2276-4, 2731-8, 41368-2 ####[facility] ([id number])[address], [address] [place] [address] Calcium [Mass/Vol] 8.9 mg/dL Normal 8.5-10.5 [facility] Comment on above: Performed By: #### C BC, UPCR, FEPR, 01688-6, RENAL, 3084-1, 2276-4, 2731-8, 28259-3 ####[facility] ([id number])[address], [address] [address] Chloride [Moles/Vol] 106 mmol/L Normal 98-109 [facility] Comment on above: Performed By: #### C BC, UPCR, FEPR, 96039-6, RENAL, 3084-1, 2276-4, 2731-8, 28919-3 ####[facility] ([id number])[address] [address] [place] [address] CO2 [Moles/Vol] 26 mmol/L Normal 22-32 [facility] Comment on above: Performed By: #### C BC, UPCR, FEPR, 56995-5, RENAL, 3084-1, 2276-4, 2731-8, 48862-7 ####[facility] ([id number])[address], [address] [address] Creatinine [Mass/Vol] 1.78 mg/dL High 0.40-1.00 [facility] Comment on above: Result Comment: METH OD TRACEABLE TO IDMS STANDARD Performed By: #### C BC, UPCR, FEPR, 94102-4, RENAL, 3084-1, 2276-4, 2731-8, 72702-8 ####[facility] ([id number])[address] [address] [place] [address] 11797 GFR/1.73 sq M.predicted among non-blacks MDRD (S/P/Bld) [Vol rate/Area] 28 mL/min/{1.73_m2} Low >59 [facility] Comment on above: Result Comment: Repo rted eGFR is based on theCKD-EPI 2020 equation that doesnot use a race coefficient. Performed By: #### C BC, UPCR, FEPR, 54794-7, RENAL, 3084-1, 2276-4, 2731-8, 44469-0 ####[facility] ([id number])[address], [address], [place] [address] Glucose [Mass/Vol] 157 mg/dL High 65-99 [facility] Comment on above: Performed By: #### C BC, UPCR, FEPR, 63253-0, RENAL, 3084-1, 2276-4, 2731-8, 52612-9 ####[facility] ([id number])[address], [address], [place] [address] Phosphate [Mass/Vol] 3.8 mg/dL Normal 2.4-4.9 [facility] Comment on above: Performed By: #### C BC, UPCR, FEPR, 03331-2, RENAL, 3084-1, 2276-4, 2731-8, 84730-7 ####[facility] ([id number])[address], [address], [place] [address] Potassium [Moles/Vol] 4.2 mmol/L Normal 3.5-5.0 [facility] Comment on above: Performed By: #### C BC, UPCR, FEPR, 45974-0, RENAL, 3084-1, 2276-4, 2731-8, 73279-4 ####[facility] ([id number])[address], [address], [place] [address] Sodium [Moles/Vol] 143 mmol/L Normal 134-146 [facility] Comment on above: Performed By: #### C BC, UPCR, FEPR, 34666-3, RENAL, 3084-1, 2276-4, 2731-8, 15612-9 ####[facility] ([id number])[address], [address] [place] [address] Urea nitrogen [Mass/Vol] 42 mg/dL High 5-27 [facility] Comment on above: Performed By: #### C BC, UPCR, FEPR, 92107-1, RENAL, 3084-1, 2276-4, 2731-8, 06609-9 ####[facility] ([id number])[address], [address] [place] [address] URIC ACIDon 04-21-2024 Urate [Mass/Vol] 4.3 mg/dL Normal 2.6-7.2 [facility] Comment on above: Performed By: #### C BC, UPCR, FEPR, 08070-0, RENAL, 3084-1, 2276-4, 2731-8, 81432-1 ####[facility] ([id number])[address], [address] [place] [address] URINALYSISon 04-21-2024 Bilirubin Ql (U) Negative Normal NEG [facility] Comment on above: Performed By: #### U A ####[facility] ([id number])[address], [address], [place] [address] BLOOD/HGB Trace Abnormal NEG [facility] Comment on above: Performed By: #### U A ####[facility] ([id number])[address], [address] [place] [address] Color (U) YELLOW Normal YELLOW [facility] Comment on above: Performed By: #### U A ####[facility] ([id number])[address], [address] [place] [address] Glucose Ql (U) Negative Normal NEG [facility] Comment on above: Performed By: #### U A ####[facility] ([id number])[address], [address] [place] [address] Ketones Ql (U) Negative Normal NEG [facility] Comment on above: Performed By: #### U A ####[facility] ([id number])[address], [address] [place] [address]34 Leukocyte esterase Test strip Ql (U) Large Abnormal NEG [facility] Comment on above: Performed By: #### U A ####[facility] ([id number])[address], [address] [place] [address] MUCOUS PRESENT Abnormal NONE [facility] Comment on above: Performed By: #### U A ####[facility] ([id number])[address] [facility] [address] [place] [address] Nitrite Ql (U) Negative Normal NEG [facility] Comment on above: Performed By: #### U A ####[facility] ([id number])[address] [address] [place] [address]3226 pH (U) 6.0 [pH] Normal 5.0-8.5 [facility] Comment on above: Performed By: #### U A ####[facility] ([id number])[address] [address] [place] [address] 30610 Protein Ql (U) 50 mg/dL Abnormal NEG [facility] Comment on above: Performed By: #### U A ####[facility] ([id number])[address] [address] [place] [address] 40263 R.B.CELLS 5 /hpf Normal 0-5 [facility] Comment on above: Performed By: #### U A ####[facility] ([id number])[address] [address] [place] [address] 88243 Specific gravity (U) [Rel density] 1.014 Normal 1.003-1.035 [facility] Comment on above: Performed By: #### U A ####[facility] ([id number])[address], [address], [place] [address] SQUAMOUS EPITHELIUM 1 /hpf Normal 0-5 [facility] Comment on above: Performed By: #### U A ####[facility] ([id number])[address], [address], [place] [address] TURBIDITY HAZY Abnormal CLEAR [facility] Comment on above: Performed By: #### U A ####[facility] ([id number])[address], [address], [place] [address] Urobilinogen (U) [Mass/Vol] mg/dL Normal <1.1 [facility] Comment on above: Performed By: #### U A ####[facility] ([id number])[address] [address], [place] [address] W.B.CELLS 455 /hpf High 0-5 [facility] Comment on above: Performed By: #### U A ####[facility] ([id number])[address], [address], [place] [address] WBC CLUMPS RARE Abnormal NONE [facility] Comment on above: Performed By: #### U A ####[facility] ([id number])[address] [address], [place] [address] Vitamin D+Metabolites [Mass/ Vol]on 04-21-2024 VITAMIN D 25 HYD TOT 32.8 ng/mL Normal 30-100 [facility] Comment on above: Result Comment: Radha min D status 25 [place] Vitamin D Deficiency <20 ng/mLInsufficiency 20-29 ng/mLSufficiency 30-100 ng/mLToxicity >100 ng/mLNOTE: A pediatric reference range has not beenestablished by the director on air of this kit.The [place] [employer] recommendsa Vitamin D level of = or >20ng/mL in infantsand children. Performed By: #### C BC, UPCR, FEPR, 52035-2, RENAL, 3084-1, 2276-4, 2731-8, 65877-6 ####[facility] ([id number])[address] [facility], [address] [place] [address] MAGNESIUMon 04-14-2024 Magnesium [Mass/Vol] 1.6 mg/dL Low 1.8-2.6 [facility] Comment on above: Performed By: #### 1 9123-9 ####[facility] ([id number])[address] [place] [address] MAGNESIUMon 04-08-2024 Magnesium [Mass/Vol] 1.5 mg/dL Low 1.8-2.6 [facility] Comment on above: Performed By: #### 1 9123-9 ####[facility] ([id number])[address] [place] [address] MAGNESIUMon 03-31-2024 Magnesium [Mass/Vol] 1.7 mg/dL Low 1.8-2.6 [facility] Comment on above: Performed By: #### 1 9123-9 ####[facility] ([id number])[address] [place] [address] MAGNESIUMon 03-24-2024 Magnesium [Mass/Vol] 1.6 mg/dL Low 1.8-2.6 [facility] Comment on above: Performed By: #### 1 9123-9 ####[facility] ([id number])[address] [place] [address] MAGNESIUMon 03-17-2024 Magnesium [Mass/Vol] 1.6 mg/dL Low 1.8-2.6 [facility] Comment on above: Performed By: #### 1 9123-9 ####[facility] ([id number])[address] [place] [address], [place] [address] MAGNESIUMon 03-10-2024 Magnesium [Mass/Vol] 1.6 mg/dL Low 1.8-2.6 [facility] Comment on above: Performed By: #### 1 9123-9 ####[facility] ([id number])[address] [place] [address], [place] [address] MAGNESIUMon 03-03-2024 Magnesium [Mass/Vol] 1.8 mg/dL Normal 1.8-2.6 [facility] Comment on above: Performed By: #### 1 9123-9 ####[facility] ([id number])[address] [place] [address], [place] [address] MAGNESIUMon 02-25-2024 Magnesium [Mass/Vol] 1.9 mg/dL Normal 1.8-2.6 [facility] Comment on above: Performed By: #### 1 9123-9 ####[facility] ([id number])[address] [place] [address], [place] [address] MAGNESIUMon 02-18-2024 Magnesium [Mass/Vol] 1.9 mg/dL Normal 1.8-2.6 [facility] Comment on above: Performed By: #### 1 9123-9 ####[facility] ([id number])[address] [place] [address] MAGNESIUMon 02-11-2024 Magnesium [Mass/Vol] 2.0 mg/dL Normal 1.8-2.6 [facility] Comment on above: Performed By: #### 1 9123-9 ####[facility] ([id number])[address] [place] [address] MAGNESIUMon 02-04-2024 Magnesium [Mass/Vol] 1.8 mg/dL Normal 1.8-2.6 [facility] Comment on above: Performed By: #### 1 9123-9 ####[facility] ([id number])[address] [place] [address] MAGNESIUMon 01-28-2024 Magnesium [Mass/Vol] 1.8 mg/dL Normal 1.8-2.6 [facility] Comment on above: Performed By: #### 1 9123-9 ####[facility] ([id number])[address] [place] [address] MAGNESIUMon 01-21-2024 Magnesium [Mass/Vol] 1.7 mg/dL Low 1.8-2.6 [facility] Comment on above: Performed By: #### 2 823-3, 32008-4 ####[facility] ([id number])[address] [place] [address] POTASSIUMon 01-21-2024 Potassium [Moles/Vol] 3.6 mmol/L Normal 3.5-5.0 [facility] Comment on above: Performed By: #### 2 823-3, 91349-8 ####[facility] ([id number])[address] [place] [address] 24669 MAGNESIUMon 01-14-2024 Magnesium [Mass/Vol] 1.6 mg/dL Low 1.8-2.6 [facility] Comment on above: Performed By: #### 1 9123-9 ####[facility] ([id number])[address] [place] [address] 50131 MAGNESIUMon 01-07-2024 Magnesium [Mass/Vol] 1.7 mg/dL Low 1.8-2.6 [facility] Comment on above: Performed By: #### 1 9123-9 ####[facility] ([id number])[address] [place] [address], [place] [address] MAGNESIUMon 12-31-2023 Magnesium [Mass/Vol] 1.7 mg/dL Low 1.8-2.6 [facility] Comment on above: Performed By: #### 1 9123-9 ####[facility] ([id number])[address] [place] [address] 00285 MAGNESIUMon 12-24-2023 Magnesium [Mass/Vol] 1.6 mg/dL Low 1.8-2.6 [facility] Comment on above: Performed By: #### 1 9123-9 ####[facility] ([id number])[address] [place] [address] 57348 MAGNESIUMon 12-17-2023 Magnesium [Mass/Vol] 1.5 mg/dL Low 1.8-2.6 [facility] Comment on above: Performed By: #### 1 9123-9 ####[facility] ([id number])[address] [place] [address] 32846 MAGNESIUMon 12-10-2023 Magnesium [Mass/Vol] 1.7 mg/dL Low 1.8-2.6 [facility] Comment on above: Performed By: #### 1 9123-9 ####[facility] ([id number])[address] [place] [address] 93874 MAGNESIUMon 12-03-2023 Magnesium [Mass/Vol] 1.7 mg/dL Low 1.8-2.6 [facility] Comment on above: Performed By: #### 1 9123-9 ####[facility] ([id number])[address] [place] [address] COMPREHENSIVE METABOLIC PANE [facility] 11-26-2023 Albumin [Mass/Vol] 3.9 g/dL Normal 3.2-5.3 [facility] Comment on above: Performed By: #### 1 9123-9 ####[facility] ([id number])[address] [place] [address] 24947#### [facility], 67838-9 ####[facility] ([id number])[address] [place] [address], [address], [place] [address] ALP [Catalytic activity/Vol] 122 U/L Normal 39-130 [facility] Comment on above: Performed By: #### 1 9123-9 ####[facility] ([id number])[address] [place] [address] 54111#### JAS, 70523-7 ####[facility] ([id number])[address], [address] [address] ALT [Catalytic activity/Vol] 29 U/L Normal 0-31 [facility] Comment on above: Performed By: #### 1 9123-9 ####[facility] ([id number])[address] [place] [address] 43117#### JAS, 91309-2 ####[facility] ([id number])[address], [address] [place] [address] 28505 Anion gap [Moles/Vol] 9 mmol/L Normal 5-15 [facility] Comment on above: Performed By: #### 1 9123-9 ####[facility] ([id number])[address] [place] [address] 11104#### JAS, 18621-3 ####[facility] ([id number])[address], [address] [place] [address] 98374 AST [Catalytic activity/Vol] 22 U/L Normal 0-41 [facility] Comment on above: Performed By: #### 1 9123-9 ####[facility] ([id number])[address] [place] [address] 02718#### CMP, 33108-4 ####[facility] ([id number])[address], [address] [place] [address] Bilirubin [Mass/Vol] 0.4 mg/dL Normal 0.3-1.2 [facility] Comment on above: Performed By: #### 1 9123-9 ####[facility] ([id number])[address] [place] [address] 88757#### JAS, 55853-2 ####[facility] ([id number])[address], [place] [address] Calcium [Mass/Vol] 9.7 mg/dL Normal 8.5-10.5 [facility] Comment on above: Performed By: #### 1 9123-9 ####[facility] ([id number])[address] [place] [address] 22117#### JAS, 10270-3 ####[facility] ([id number])[address], [address], [place] [address] Chloride [Moles/Vol] 103 mmol/L Normal 98-109 [facility] Comment on above: Performed By: #### 1 9123-9 ####[facility] ([id number])[address] [place] [address] [place] [address]#### JAS, 56308-6 ####[facility] ([id number])[address], [address], [place] [address] CO2 [Moles/Vol] 30 mmol/L Normal 22-32 [facility] Comment on above: Performed By: #### 1 9123-9 ####[facility] ([id number])[address] [place] [address] [place] [address]#### CMP, 98592-9 ####[facility] ([id number])[address], [address], [place] [address] Creatinine [Mass/Vol] 1.53 mg/dL High 0.40-1.00 [facility] Comment on above: Result Comment: METH OD TRACEABLE TO IDMS STANDARD Performed By: #### 1 9123-9 ####[facility] ([id number])[address] [place] [address] 34081#### JAS, 97257-2 ####[facility] ([id number])[address], [address] [place] [address] 88813 GFR/1.73 sq M.predicted among non-blacks MDRD (S/P/Bld) [Vol rate/Area] 34 mL/min/{1.73_m2} Low >59 [facility] Comment on above: Result Comment: Repo rted eGFR is based on theCKD-EPI 2020 equation that doesnot use a race coefficient. Performed By: #### 1 9123-9 ####[facility] ([id number])[address] [place] [address] 35307#### JAS, 83389-8 ####[facility] ([id number])[address], [address] [place] [address] 04221 Glucose [Mass/Vol] 165 mg/dL High 65-99 [facility] Comment on above: Performed By: #### 1 9123-9 ####[facility] ([id number])[address] [place] [address] 35289#### JAS, 89099-0 ####[facility] ([id number])[address], [address] [place] [address] 11335 Potassium [Moles/Vol] 4.4 mmol/L Normal 3.5-5.0 [facility] Comment on above: Performed By: #### 1 9123-9 ####[facility] ([id number])[address] [place] [address] 27964#### JAS, 29638-5 ####[facility] ([id number])[address], [address] [address] 07854 Protein [Mass/Vol] 7.1 g/dL Normal 6.0-8.0 [facility] Comment on above: Performed By: #### 1 9123-9 ####[facility] ([id number])[address] [place] [address] 56835#### JAS, 91675-1 ####[facility] ([id number])[address], [address] [place] [address] Sodium [Moles/Vol] 142 mmol/L Normal 134-146 [facility] Comment on above: Performed By: #### 1 9123-9 ####[facility] ([id number])[address] [place] [address] 16248#### JAS, 89723-7 ####[facility] ([id number])[address], [address] [place] [address] Urea nitrogen [Mass/Vol] 43 mg/dL High 5-27 [facility] Comment on above: Performed By: #### 1 9123-9 ####[facility] ([id number])[address] [place] [address] 69986#### JAS, 17277-9 ####[facility] ([id number])[address], [address] [place] [address] HGB A1C (GLYCO-HGB)on 2023 Glucose [Mass/Vol] 163 mg/dL Normal [facility] Comment on above: Performed By: #### 1 9123-9 ####[facility] ([id number])[address] [place] [address] 32068#### JAS, 72100-8 ####[facility] ([id number])[address] [place] [address] HbA1c (Bld) [Mass fraction] 7.3 % High 4.4-5.6 [facility] Comment on above: Result Comment: NOTE ADA Guidelines Result HgbA1c Normal : less than 5.7 % Prediabetes : 5.7 % to 6.4 % Diabetes : > 6.4 %Use with caution in patients with abnormal hemoglobin variants asthe half-life of red blood cells and in vivo glycation rates areaffected. Performed By: #### 1 9123-9 ####[facility] ([id number])[address] [place] [address] 78075#### JAS, 17302-6 ####[facility] ([id number])[address] [facility], [address] [place] [address] 32945 Lipid 1996 panelon 4 Cholesterol [Mass/Vol] 145 mg/dL Low 150-200 [facility] Comment on above: Performed By: #### 1 9123-9 ####[facility] ([id number])[address] [place] [address] 57367#### JAS, 96211-1 ####[facility] ([id number])[address] [facility], [address] [place] [address] 92250 Cholesterol in HDL [Mass/Vol] 53 mg/dL Normal >39 [facility] Comment on above: Result Comment: HDL <40 mg/dL - High RiskHDL > or = 40mg/dL- DesirableHDL >60 mg/dL - Negative Risk Performed By: #### 1 9123-9 ####[facility] ([id number])[address] [place] [address] 02675#### CMP, 70385-3 ####[facility] ([id number])[address] [facility], [address] [place] [address] 20069 Cholesterol in LDL [Mass/Vol] 43 mg/dL Normal <130 [facility] Comment on above: Result Comment: LDL <100 mg/dL - DesirableLDL >160 mg/dL - High Risk Performed By: #### 1 9123-9 ####[facility] ([id number])[address] [place] [address] 89248#### JAS, 65426-3 ####[facility] ([id number])[address], [address] [address] Cholesterol in VLDL [Mass/Vol] 49 mg/dL High 0-30 [facility] Comment on above: Performed By: #### 1 9123-9 ####[facility] ([id number])[address] [place] [address] 08351#### JAS, 23146-3 ####[facility] ([id number])[address], [address], [place] [address] CHOLESTEROL:HDL 2.7 Normal 1.0-5.0 [facility] Comment on above: Performed By: #### 1 9123-9 ####[facility] ([id number])[address] [place] [address]#### JAS, 32882-9 ####[facility] ([id number])[address], [address] [place] [address] Triglyceride [Mass/Vol] 245 mg/dL High 27-150 [facility] Comment on above: Performed By: #### 1 9123-9 ####[facility] ([id number])[address] [place] [address]#### JAS, 69674-2 ####[facility] ([id number])[address], [place] [address] MAGNESIUMon 11-26-2023 Magnesium [Mass/Vol] 1.8 mg/dL Normal 1.8-2.6 [facility] Comment on above: Performed By: #### 1 9123-9 ####[facility] ([id number])[address] [facility], [place] [address]#### [facility], 31506-7 ####[facility] ([id number])[address] [facility], [address] [address] MICROALBUMIN - ALBUMIN:CREAT ININE URINE RATIOon 11-26-2023 ALB/CREAT RATIO 352.8 mg/g creat High 0.0-30.0 [facility] Comment on above: Performed By: #### M ALBU #### [facility] ([id number]) [address] [address] Albumin DL <= 20 mg/L (U) [Mass/Vol] 14.6 mg/dL High 0.0-1.9 [facility] Comment on above: Performed By: #### M ALBU #### [facility] ([id number]) [address] [place] [address] URINE CREAT 41.38 mg/dL Normal [facility] Comment on above: Performed By: #### M ALBU #### [facility] ([id number]) [address] [place] [address] Office Visiton 11-19-2023 Follow-up visit [id number] [place] M 1940 F Date Provider Department Center 11/19/2023 [facility] Family History Problem Relation Age of Onset Heart attack Mother Family Status - Relation Status Age at Mother Level of Service:28255 NE OFFICE/OUTPATIENT ESTABLISHED LOW MDM 20 MIN Normal [facility] Magnesium [Mass/volume] in S aisya or PlasmaOrdered By: Gia Munoz on 11-16-2023 Magnesium [Mass/Vol] 1.4 mg/dL 1.9-2.7 [facility] Multiple labsOrdered By: Mary Ann Carter on 11-16-2023 [facility] PTH INTACTon 01-16-2023 PTH, Intact 115 pg/mL Critically high 15-65 [facility] Comment on above: Performed By: #### M G, URIC, RENAL #### [facility] [address] [place] [address] Dr. Nacho Jeffery FERRITINon 01-15-2023 Ferritin [Mass/Vol] 304.0 ng/mL Critically high 8.0-252.0 [facility] Comment on above: Performed By: #### M G, URIC, RENAL #### [facility] [address] [place] [address] Dr. Nacho Jeffery HEMOGRAM AND PLATELon 2022 Hematocrit (Bld) [Volume fraction] 36.0 % Normal 36.0-48.[address] [facility] Comment on above: Performed By: #### M G, URIC, RENAL #### [facility] [address] [place] [address] Dr. Nacho Jeffery Hemoglobin (Bld) [Mass/Vol] 11.6 g/dL Critically low 12.0-16.0 [facility] Comment on above: Performed By: #### M G, URIC, RENAL #### [facility] [address] [place] [address] Dr. Nacho Jeffery MCH (RBC) [Entitic mass] 29.4 pg Normal 26.7-34.0 [facility] Comment on above: Performed By: #### M G, URIC, RENAL #### [facility] [address] [place] [address] Dr. Nacho Jeffery MCHC (RBC) [Mass/Vol] 32.2 g/dL Normal 29.9-35.2 [facility] Comment on above: Performed By: #### M G, URIC, RENAL #### [facility] [address] [place] [address] Dr. Nacho Jeffery MCV (RBC) [Entitic vol] 91.4 fL Normal 81.0-99.0 [facility] Comment on above: Performed By: #### M G, URIC, RENAL #### [facility] [address] [address] [address] Nacho Jeffery PLT 202 103/ul Normal 150-[address] [facility] Comment on above: Performed By: #### M G, URIC, RENAL #### [facility] [address] [address] [address] Nacho Jeffery RBC 3.94 106/ul Critically low 4.20-5.40 [facility] Comment on above: Performed By: #### M G, URIC, RENAL #### [facility] [address] [address] [address] Nacho Jeffery WBC 5.9 103/ul Normal 4.0-11.[address] [facility] Comment on above: Performed By: #### M G, URIC, RENAL #### [facility] [address] [place] [address] Dr. Nacho Jeffery IRON AND TIBCon 01-15-2023 % SATURATION 23.4 % Normal [facility] Comment on above: Performed By: #### M G, URIC, RENAL #### [facility] [address] [place] [address] Dr. Nacho Jeffery Iron [Mass/Vol] 62.0 ug/dL Normal 50.0-170.0 [facility] Comment on above: Performed By: #### M G, URIC, RENAL #### [facility] [address] [place] [address] Dr. Nacho Jeffery TIBC DIRECT 265.0 ug/dL Normal 250.0-450.[address] [facility] Comment on above: Performed By: #### M G, URIC, RENAL #### [facility] [address] [place] [address] Dr. Nacho Jeffery MAGNESIUMon 01-15-2023 Magnesium [Mass/Vol] 1.5 mg/dL Critically low 1.8-2.[address] [facility] Comment on above: Performed By: #### M G, URIC, RENAL #### [facility] [address] [place] [address] Dr. Nacho Jeffery RENAL FUNCTION PANELon 01-15 Albumin [Mass/Vol] 3.4 g/dL Normal 3.4-5.[address] [facility] Comment on above: Performed By: #### M G, URIC, RENAL #### [facility] [address] [address] [address] Nacho Jeffery Calcium [Mass/Vol] 9.2 mg/dL Normal 8.5-10.1 [facility] Comment on above: Performed By: #### M G, URIC, RENAL #### [facility] [address] [address] [address] Nacho Jeffery Chloride [Moles/Vol] 104 mmol/L Normal 98-[address] [facility] Comment on above: Performed By: #### M G, URIC, RENAL #### [facility] [address] [address] [address] Nacho Jeffery CO2 [Moles/Vol] 30.8 mmol/L Normal 21.0-32.0 [facility] Comment on above: Performed By: #### M G, URIC, RENAL #### [facility] [address] [address] [address] Nacho Jeffery Creatinine [Mass/Vol] 1.52 mg/dL Critically high 0.55-1.[address] [facility] Comment on above: Performed By: #### M G, URIC, RENAL #### [facility] [address] [address] [address] Nacho Jeffery EGFR-AF ROMANIAN 40 mL/min/1.73m2 Critically low >=60 [facility] Comment on above: Performed By: #### M G, URIC, RENAL #### [facility] [address] [address] [address] Nacho Jeffery EGFR-NON AF ROMANIAN 33 mL/min/1.73m2 Critically low >=[address] [facility] Comment on above: Performed By: #### M G, URIC, RENAL #### [facility] [address] [address] [address] Nacho Jeffery Glucose [Mass/Vol] 172 mg/dL Critically high 74-106 [facility] Comment on above: Performed By: #### M G, URIC, RENAL #### [facility] [address] [address] [address] Nacho Jeffery Phosphate [Mass/Vol] 3.7 mg/dL Normal 2.6-4.[address] [facility] Comment on above: Performed By: #### M G, URIC, RENAL #### [facility] [address] [place] [address] Dr. Nacho Jeffery Potassium [Moles/Vol] 4.2 mmol/L Normal 3.5-5.[address] [facility] Comment on above: Performed By: #### M G, URIC, RENAL #### [facility] [address] [place] [address] Dr. Nacho Jeffery Sodium [Moles/Vol] 143 mmol/L Normal 136-[address] [facility] Comment on above: Performed By: #### M G, URIC, RENAL #### [facility] [address] [place] [address] Dr. Nacho Jeffery Urea nitrogen [Mass/Vol] 56.0 mg/dL Critically high 7.0-18.[address] [facility] Comment on above: Performed By: #### M G, URIC, RENAL #### [facility] [address] [place] [address] Dr. Nacho Jeffery UA RANDOM W/MICROSCOPICon BACTERIA NONE SEEN Normal NONE SEEN [facility] Comment on above: Performed By: #### M G, URIC, RENAL #### [facility] [address] [place] [address] Dr. Nacho Jeffery Bilirubin Ql (U) Negative Normal NEGATIVE [facility] Comment on above: Performed By: #### M G, URIC, RENAL #### [facility] [address] [place] [address] Dr. Nacho Jeffery CAST NONE SEEN Normal NONE SEEN [facility] Comment on above: Performed By: #### M G, URIC, RENAL #### [facility] [address] [place] [address] Dr. Nacho Jeffery Clarity (U) CLEAR Normal CLEAR [facility] Comment on above: Performed By: #### M G, URIC, RENAL #### [facility] [address] [address] [address] Nacho Jeffery Color (U) LT. YELLOW Normal YELLOW [facility] Comment on above: Performed By: #### M G, URIC, RENAL #### [facility] [address] [address] [address] Nacho Jeffery Crystals LM Nom (Urine sed) NONE SEEN Normal NONE SEEN [facility] Comment on above: Performed By: #### M G, URIC, RENAL #### [facility] [address] [address] [address] Nacho Jeffery Epithelial cells LM Ql (Urine sed) RARE Normal NONE SEEN /RARE [facility] Comment on above: Performed By: #### M G, URIC, RENAL #### [facility] [address] [place] [address] Dr. Nacho Jeffery Glucose Ql (U) Negative Normal NEGATIVE [facility] Comment on above: Performed By: #### M G, URIC, RENAL #### [facility] [address] [address] [address] Nacho Jeffery Hemoglobin Ql (U) Negative Normal NEGATIVE [facility] Comment on above: Performed By: #### M G, URIC, RENAL #### [facility] [address] [place] [address] Dr. Nacho Jeffery Ketones Ql (U) Negative Normal NEGATIVE [facility] Comment on above: Performed By: #### M G, URIC, RENAL #### [facility] [address] [address] [address] Nacho Jeffery LEUKOCYTES TRACE Abnormal NEGATIVE [facility] Comment on above: Performed By: #### M G, URIC, RENAL #### [facility] [address] [address] [address] Nacho Jeffery MUCOUS NONE SEEN Normal NONE SEEN [facility] Comment on above: Performed By: #### M G, URIC, RENAL #### [facility] [address] [address] [address] Nacho Jeffery Nitrite Ql (U) Negative Normal NEGATIVE [facility] Comment on above: Performed By: #### M G, URIC, RENAL #### [facility] [address] [address] [address] Nacho Jeffery pH (U) 5.5 [pH] Normal 5-[address] [facility] Comment on above: Performed By: #### M G, URIC, RENAL #### [facility] [address] [address] [address] Nacho Jeffery RBC 0-2 Normal 0-2 [facility] Comment on above: Performed By: #### M G, URIC, RENAL #### [facility] [address] [address] [address] Nacho Jeffery SPEC GRAVITY 1.015 Normal 1.005-<=1.[address] [facility] Comment on above: Performed By: #### M G, URIC, RENAL #### [facility] [address] [place] [address] Dr. Nacho Jeffery UA PROTEIN Negative Normal NEGATIVE/ TRACE [facility] Comment on above: Performed By: #### M G, URIC, RENAL #### [facility] [address] [address] [address] Nacho Jeffery Urobilinogen Qn (U) 0.2 {Zuleyka'U}/dL Normal 0.2 - 1. [address] [facility] Comment on above: Performed By: #### M G, URIC, RENAL #### [facility] [address] [address] [address] Nacho Jeffery WBC 2-5 Abnormal NONE SEEN [facility] Comment on above: Performed By: #### M G, URIC, RENAL #### [facility] [address] [address] [address] Nacho Jeffery URIC ACID SERUMon 01-15-2023 Urate [Mass/Vol] 7.0 mg/dL Critically high 2.6-6.[address] [facility] Comment on above: Performed By: #### M G, URIC, RENAL #### [facility] [address] [place] [address] Dr. Nacho Jeffery URINE T PROTEIN CREAT RATIOo n 03-06-2023 Protein (U) [Mass/Vol] 13.4 mg/dL Critically high <=12.[address] [facility] Comment on above: Performed By: #### U RTPCR #### [facility] [address] [place] [address] Dr. Nacho Jeffery UR PROT CREAT RAT 0.24 Normal [facility] Comment on above: Performed By: #### U RTPCR #### [facility] [address] [place] [address] Dr. Nacho Jeffery URINE CREAT 56.90 mg/dL Normal 20.00-300.00 [facility] Comment on above: Performed By: #### U RTPCR #### [facility] [address] [place] [address] Dr. Nacho Jeffery VITAMIN D 25 OHon 01-15-2023 VIT D 25-OH 52.6 ng/mL Normal [facility] Comment on above: Performed By: #### M G, URIC, RENAL #### [facility] [address] [place] [address] Dr. Nacho Jeffery VIT D RANGES SEE BELOW Normal [facility] Comment on above: Result Comment: <20 ng/mL Vit D deficient 20 - <30 ng/mL Vit D insufficient 30 - 100 ng/mL Vit D sufficient >100 ng/mL Potential Toxicity Performed By: #### M G, URIC, RENAL #### [facility] [address] [place] [address] Dr. Nacho Jeffery Telemedicineon 12-06-2022 Telemedicine [id number] Adore Wolff 1940 F Date Provider Department Center 12/06/2022 [facility] Family History Problem Relation Age of Onset Heart attack Mother Family Status - Relation Status Age at Mother Level of Service:10820 NE OFFICE/OUTPATIENT EST PT MAY NOT REQ PHYS/QHP Normal [facility] GLYCOHEMOGLOBIN A1Con 2021 ADA RECOMMENDATION SEE BELOW Normal [facility] Comment on above: Result Comment: ADA RECOMMENDED LIMIT 4.0 - 6.0 ADA THERAPEUTIC TARGET < 7.0 ACTION SUGGESTED > 7.0 Performed By: #### A 1C #### [facility] [address] [address] [address] Nacho Jeffery Glucose [Mass/Vol] 143 mg/dL Normal [facility] Comment on above: Performed By: #### A 1C #### [facility] [address] [address] [address] Nacho Jeffery HbA1c (Bld) [Mass fraction] 6.6 % Critically high 4.5-6.[address] [facility] Comment on above: Performed By: #### A 1C #### [facility] [address] [place] [address] Dr. Nacho Jeffery LIPID PROFILEon 11-09-2022 CHOL-HDL RATIO NORM SEE BELOW Normal [facility] Comment on above: Result Comment: 3.3 - 4.4 LOW RISK 4.4 - 7.1 AVERAGE RISK 7.1 - 11.0 MODERATE RISK >11.0 HIGH RISK Performed By: #### M G, URIC, RENAL #### [facility] [address] [place] [address] Dr. Nacho Jeffery Cholesterol [Mass/Vol] 141 mg/dL Normal <=[address] [facility] Comment on above: Performed By: #### M G, URIC, RENAL #### [facility] [address] [place] [address] Dr. Nacho Jeffery Cholesterol in HDL [Mass/Vol] 59 mg/dL Normal 40-[address] [facility] Comment on above: Performed By: #### M G, URIC, RENAL #### [facility] [address] [address] [address] Nacho Jeffery Cholesterol in LDL [Mass/Vol] 46.2 mg/dL Normal [facility] Comment on above: Performed By: #### M G, URIC, RENAL #### [facility] [address] [address] [address] Nacho Jeffery Cholesterol.total/C holesterol in HDL [Mass ratio] 2.4 {ratio} Normal [facility] Comment on above: Performed By: #### M G, URIC, RENAL #### [facility] [address] [address] [address] Nacho Jeffery HDL NORMAL > or = 60 mg/dl - LO W CARDIOVASCULAR RISK <40 mg/dl - HIGH CARDIOVASCULAR RISK Normal [facility] Comment on above: Performed By: #### M G, URIC, RENAL #### [facility] [address] [address] [address] Nacho Jeffery LDL CALC NORMAL SEE BELOW Normal [facility] Comment on above: Result Comment: <100 mg/dl OPTIMAL 100 - 129 mg/dl NEAR OR ABOVE OPTIMAL 130 - 159 mg/dl BORDERLINE HIGH 160 - 189 mg/dl HIGH >190 mg/dl VERY HIGH Performed By: #### M G, URIC, RENAL #### [facility] [address] [address] [address] Nacho Jeffery Triglyceride [Mass/Vol] 179 mg/dL Critically high <=[address] [facility] Comment on above: Performed By: #### M G, URIC, RENAL #### [facility] [address] [address] [address] Nacho Jeffery VLDL CALC 35.8 mg/dL Normal [facility] Comment on above: Performed By: #### M G, URIC, RENAL #### [facility] [address] [address] [address] Nacho Jeffery PROF 14(COMP METB)on 11-09-2 022 Albumin [Mass/Vol] 3.2 g/dL Critically low 3.4-5.0 [facility] Comment on above: Performed By: #### M G, URIC, RENAL #### [facility] [address] [address] [address] Nacho Jeffery Albumin/Globulin [Mass ratio] 0.8 {ratio} Normal [facility] Comment on above: Performed By: #### M G, URIC, RENAL #### [facility] [address] [address] [address] Nacho Jeffery ALP [Catalytic activity/Vol] 109 U/L Normal 46-[address] [facility] Comment on above: Performed By: #### M G, URIC, RENAL #### [facility] [address] [address] [address] Nacho Jeffery ALT [Catalytic activity/Vol] 38 U/L Normal 14-[address] [facility] Comment on above: Performed By: #### M G, URIC, RENAL #### [facility] [address] [address] [address] Nacho Jeffery Anion gap [Moles/Vol] 13.7 mmol/L Normal [facility] Comment on above: Performed By: #### M G, URIC, RENAL #### [facility] [address] [address] [address] Nacho Jeffery AST [Catalytic activity/Vol] 27 U/L Normal 15-[address] [facility] Comment on above: Performed By: #### M G, URIC, RENAL #### [facility] [address] [place] [address] Dr. Nacho Jeffery Bilirubin [Mass/Vol] 0.4 mg/dL Normal 0.2-1.[address] [facility] Comment on above: Performed By: #### M G, URIC, RENAL #### [facility] [address] [place] [address] Dr. Nacho Jeffery Calcium [Mass/Vol] 9.2 mg/dL Normal 8.5-10.[address] [facility] Comment on above: Performed By: #### M G, URIC, RENAL #### [facility] [address] [place] [address] Dr. Nacho Jeffery Chloride [Moles/Vol] 105 mmol/L Normal 98-107 [facility] Comment on above: Performed By: #### M G, URIC, RENAL #### [facility] [address] [place] [address] Dr. Nacho Jeffery CO2 [Moles/Vol] 29.5 mmol/L Normal 21.0-32.0 [facility] Comment on above: Performed By: #### M G, URIC, RENAL #### [facility] [address] [place] [address] Dr. Nacho Jeffery Creatinine [Mass/Vol] 1.62 mg/dL Critically high 0.55-1.[address] [facility] Comment on above: Performed By: #### M G, URIC, RENAL #### [facility] [address] [place] [address] Dr. Nacho Jeffery EGFR-AF ROMANIAN 37 mL/min/1.73m2 Critically low >=60 [facility] Comment on above: Performed By: #### M G, URIC, RENAL #### [facility] [address] [address] [address] Nacho Jeffery EGFR-NON AF ROMANIAN 31 mL/min/1.73m2 Critically low >=60 [facility] Comment on above: Performed By: #### M Jamarcus, URIC, RENAL #### [facility] [address] [place] [address] Dr. Nacho Jeffery Globulin (S) [Mass/Vol] 3.8 g/dL Normal [facility] Comment on above: Performed By: #### M Jamarcus, URIC, RENAL #### [facility] [address] [place] [address] Dr. Nacho Jeffery Glucose [Mass/Vol] 102 mg/dL Normal 74-106 [facility] Comment on above: Performed By: #### M Jamarcus, URIC, RENAL #### [facility] [address] [place] [address] Dr. Nacho Jeffery Potassium [Moles/Vol] 4.2 mmol/L Normal 3.5-5.1 [facility] Comment on above: Performed By: #### M Jamarcus, URIC, RENAL #### [facility] [address] [place] [address] Dr. Nacho Jeffery Protein [Mass/Vol] 7.0 g/dL Normal 6.4-8.2 [facility] Comment on above: Performed By: #### M G, URIC, RENAL #### [facility] [address] [place] [address] Dr. Nacho Jeffery Sodium [Moles/Vol] 144 mmol/L Normal 136-145 [facility] Comment on above: Performed By: #### M G, URIC, RENAL #### [facility] [address] [place] [address] Dr. Nacho Jeffery Urea nitrogen [Mass/Vol] 45.0 mg/dL Critically high 7.0-18.0 [facility] Comment on above: Performed By: #### M G, URIC, RENAL #### [facility] [address] [address] [address] Nacho Jeffery Urea nitrogen/Creatinine [Mass ratio] 27.8 mg/mg Normal [facility] Comment on above: Performed By: #### M G, URIC, RENAL #### [facility] [address] [address] [address] Nacho Jeffery OSMOLALITY URINEon 2 Osmolality, Urine 466 mOsmol/kg Normal [facility] Comment on above: Result Comment: 24 h r : 300 - 900 Random: 50 - 1400 After 12hr fluid restriction: >850 Performed By: #### M G, URIC, RENAL #### [facility] [address] [address] [address] Nacho Jeffery PTH INTACTon 07-13-2022 PTH, Intact 84 pg/mL Critically high 15-65 [facility] Comment on above: Performed By: #### P THINT #### [facility] [address] [address] [address] Nacho Jeffery VIT D 25-OH LABCORPon 2021 Vitamin D, 25-Hydroxy 34.7 ng/mL Normal 30.0-100.[address] [facility] Comment on above: Result Comment: Radha min D deficiency has been defined by the [employer] of [employer] and an Endocrine Society practice guideline as a level of serum 25-OH vitamin D less than 20 ng/mL (1,2). The Endocrine Society went on to further define vitamin D insufficiency as a level between 21 and 29 ng/mL (2). 1. IOM ([employer] of [employer]). 2010. Dietary reference intakes for calcium and D. [place]: The National Academies Press. 2. Magdiel MF, Kb NC, Evens PEPPER, et al. Evaluation, treatment, and prevention of vitamin D deficiency: an Endocrine Society clinical practice guideline. JCEM. 2010; 96(7):1911-30. Performed By: #### M G, URIC, RENAL #### [facility] [address] [address] [address] Nacho Jeffery HEMOGRAM AND PLATELon 2021 Hematocrit (Bld) [Volume fraction] 35.5 % Critically low 36.0-48.0 [facility] Comment on above: Performed By: #### M G, URIC, RENAL #### [facility] [address] [place] [address] Dr. Nacho Jeffery Hemoglobin (Bld) [Mass/Vol] 11.5 g/dL Critically low 12.0-16.0 [facility] Comment on above: Performed By: #### M G, URIC, RENAL #### [facility] [address] [place] [address] Dr. Nacho Jeffery MCH (RBC) [Entitic mass] 30.6 pg Normal 26.7-34.0 [facility] Comment on above: Performed By: #### M G, URIC, RENAL #### [facility] [address] [place] [address] Dr. Nacho Jeffery MCHC (RBC) [Mass/Vol] 32.4 g/dL Normal 29.9-35.2 [facility] Comment on above: Performed By: #### M G, URIC, RENAL #### [facility] [address] [place] [address] Dr. Nacho Jeffery MCV (RBC) [Entitic vol] 94.4 fL Normal 81.0-99.0 [facility] Comment on above: Performed By: #### M G, URIC, RENAL #### [facility] [address] [place] [address] Dr. Nacho Jeffery PLT 192 103/ul Normal 150-450 [facility] Comment on above: Performed By: #### M G, URIC, RENAL #### [facility] [address] [place] [address] Dr. Nacho Jeffery RBC 3.76 106/ul Critically low 4.20-5.40 [facility] Comment on above: Performed By: #### M G, URIC, RENAL #### [facility] [address] [place] [address] Dr. Nacho Jeffery WBC 6.1 103/ul Normal 4.0-11.0 [facility] Comment on above: Performed By: #### M G, URIC, RENAL #### [facility] [address] [place] [address] Dr. Nacho Jeffery MAGNESIUMon 07-12-2022 Magnesium [Mass/Vol] 1.3 mg/dL Critically low 1.8-2.[address] [facility] Comment on above: Performed By: #### U CHRISTOFER, MG, RENAL #### [facility] [address] [place] [address] Dr. Nacho Jeffery RENAL FUNCTION PANELon 07-12 Albumin [Mass/Vol] 3.3 g/dL Critically low 3.4-5.0 [facility] Comment on above: Performed By: #### U CHRISTOFER, MG, RENAL #### [facility] [address] [place] [address] Dr. Nacho Jeffery Calcium [Mass/Vol] 9.1 mg/dL Normal 8.5-10.[address] [facility] Comment on above: Performed By: #### U CHRISTOFER, MG, RENAL #### [facility] [address] [place] [address] Dr. Nacho Jeffery Chloride [Moles/Vol] 104 mmol/L Normal 98-[address] [facility] Comment on above: Performed By: #### U CHRISTOFER, MG, RENAL #### [facility] [address] [place] [address] Dr. Nacho Jeffery CO2 [Moles/Vol] 31.7 mmol/L Normal 21.0-32.0 [facility] Comment on above: Performed By: #### U CHRISTOFER, MG, RENAL #### [facility] [address] [place] [address] Dr. Nacho Jeffery Creatinine [Mass/Vol] 1.52 mg/dL Critically high 0.55-1.[address] [facility] [address] [facility] Comment on above: Performed By: #### U CHRISTOFER, MG, RENAL #### [facility] [address] [place] [address] Dr. Nacho Jeffery EGFR-AF ROMANIAN 40 mL/min/1.73m2 Critically low >=[address] [facility] Comment on above: Performed By: #### U CHRISTOFER, MG, RENAL #### [facility] [address] [place] [address] Dr. Nacho Jeffery EGFR-NON AF ROMANIAN 33 mL/min/1.73m2 Critically low >=[address] [facility] Comment on above: Performed By: #### U CHRISTOFER, MG, RENAL #### [facility] [address] [place] [address] Dr. Nacho Jeffery Glucose [Mass/Vol] 221 mg/dL Critically high 74-106 [facility] Comment on above: Performed By: #### U CHRISTOFER, MG, RENAL #### [facility] [address] [place] [address] Dr. Nacho Jeffery Phosphate [Mass/Vol] 3.8 mg/dL Normal 2.6-4.[address] [facility] Comment on above: Performed By: #### U CHRISTOFER, MG, RENAL #### [facility] [address] [place] [address] Dr. Nacho Jeffery Potassium [Moles/Vol] 4.1 mmol/L Normal 3.5-5.[address] [facility] Comment on above: Performed By: #### U CHRISTOFER, MG, RENAL #### [facility] [address] [place] [address] Dr. Nacho Jeffery Sodium [Moles/Vol] 143 mmol/L Normal 136-[address] [facility] Comment on above: Performed By: #### U CHRISTOFER, MG, RENAL #### [facility] [address] [place] [address] Dr. Nacho Jeffery Urea nitrogen [Mass/Vol] 45.0 mg/dL Critically high 7.0-18.[address] [facility] Comment on above: Performed By: #### U CHRISTOFER, MG, RENAL #### [facility] [address] [place] [address] Dr. Nacho Jeffery UA RANDOM W/MICROSCOPICon BACTERIA NONE SEEN Normal NONE SEEN [facility] Comment on above: Performed By: #### M G, URIC, RENAL #### [facility] [address] [place] [address] Dr. Nacho Jeffery Bilirubin Ql (U) Negative Normal NEGATIVE [facility] Comment on above: Performed By: #### M G, URIC, RENAL #### [facility] [address] [address] [address] Nacho Jeffery CAST NONE SEEN Normal NONE SEEN [facility] Comment on above: Performed By: #### M G, URIC, RENAL #### [facility] [address] [place] [address] Dr. Nacho Jeffery Clarity (U) CLEAR Normal CLEAR [facility] Comment on above: Performed By: #### M G, URIC, RENAL #### [facility] [address] [address] [address] Nacho Jeffery Color (U) LT. YELLOW Normal YELLOW [facility] Comment on above: Performed By: #### M G, URIC, RENAL #### [facility] [address] [place] [address] Dr. Nacho Jeffery Crystals LM Nom (Urine sed) NONE SEEN Normal NONE SEEN [facility] Comment on above: Performed By: #### M G, URIC, RENAL #### [facility] [address] [place] [address] Dr. Nacho Jeffery Epithelial cells LM Ql (Urine sed) FEW Abnormal NONE SEEN /RARE [facility] Comment on above: Performed By: #### M G, URIC, RENAL #### [facility] [address] [place] [address] Dr. Nacho Jeffery Glucose Ql (U) Negative Normal NEGATIVE [facility] Comment on above: Performed By: #### M G, URIC, RENAL #### [facility] [address] [place] [address] Dr. Nacho Jeffery Hemoglobin Ql (U) Negative Normal NEGATIVE [facility] Comment on above: Performed By: #### M G, URIC, RENAL #### [facility] [address] [place] [address] Dr. Nacho Jeffery Ketones Ql (U) Negative Normal NEGATIVE [facility] Comment on above: Performed By: #### M G, URIC, RENAL #### [facility] [address] [place] [address] Dr. Nacho Jeffery LEUKOCYTES TRACE Abnormal NEGATIVE [facility] Comment on above: Performed By: #### M G, URIC, RENAL #### [facility] [address] [address] [address] Nacho Jeffery MUCOUS NONE SEEN Normal NONE SEEN [facility] Comment on above: Performed By: #### M G, URIC, RENAL #### [facility] [address] [place] [address] Dr. Nacho Jeffery Nitrite Ql (U) Negative Normal NEGATIVE [facility] Comment on above: Performed By: #### M G, URIC, RENAL #### [facility] [address] [place] [address] Dr. Nacho Jeffery pH (U) 6.0 [pH] Normal 5-9 [facility] Comment on above: Performed By: #### M G, URIC, RENAL #### [facility] [address] [place] [address] Dr. Nacho Jeffery RBC NONE SEEN Abnormal 0-2 [facility] Comment on above: Performed By: #### M G, URIC, RENAL #### [facility] [address] [place] [address] Dr. Nacho Jeffery SPEC GRAVITY 1.015 Normal 1.005-<=1.025 [facility] Comment on above: Performed By: #### M G, URIC, RENAL #### [facility] [address] [place] [address] Dr. Nacho Jeffery UA PROTEIN Negative Normal NEGATIVE/ TRACE [facility] Comment on above: Performed By: #### M G, URIC, RENAL #### [facility] [address] [place] [address] Dr. Nacho Jeffery Urobilinogen Qn (U) 0.2 {Zuleyka'U}/dL Normal 0.2 - 1. 0 [facility] Comment on above: Performed By: #### M G, URIC, RENAL #### [facility] [address] [place] [address] Dr. Nacoh Jeffery WBC 2-5 Abnormal NONE SEEN [facility] Comment on above: Performed By: #### M G, URIC, RENAL #### [facility] [address] [place] [address] Dr. Nacho Jeffery URIC ACID SERUMon 07-12-2022 Urate [Mass/Vol] 7.9 mg/dL Critically high 2.6-6.[address] [facility] Comment on above: Performed By: #### U CHRISTOFER, MG, RENAL #### [facility] [address] [address] [address] Nacho Jeffery URINE T PROTEIN CREAT RATIOo n 07-12-2022 Protein (U) [Mass/Vol] 17.5 mg/dL Critically high <=12.[address] [facility] Comment on above: Performed By: #### M G, URIC, RENAL #### [facility] [address] [address] [address] Nacho Jeffery UR PROT CREAT RAT 0.29 Normal [facility] Comment on above: Performed By: #### M G, URIC, RENAL #### [facility] [address] [address] [address] Nacho Jeffery URINE CREAT 60.37 mg/dL Normal 20.00-300.00 [facility] Comment on above: Performed By: #### M G, URIC, RENAL #### [facility] [address] [address] [address] Nacho Jeffery ALBUMIN, RANDOM URINE W/CREA TININEon 05-11-2022 ALBUMIN, URINE 0.5 mg/dL Normal See Note: [facility] Comment on above: Result Comment: Refe rence Range: Reference Range Not established Performed By: #### 4 96, 7600, 6517, 99895 #### [facility] [address], [address] [place] [phone] [employer]ric [employer]er: Mauricio Kern MD ALBUMIN/CREATININE RATIO, RANDOM URINE [...] Performed By: #### 4 96, 7600, 6517, 23201 #### [facility] of [address], [address] [place] [address] [employer]er: Mauricio Kern MD Creatinine (U) [Mass/Vol] 74 mg/dL Normal 20-275 [facility] Comment on above: Performed By: #### 4 96, 7600, 6517, 71836 #### [facility] of [address], [address] [place] [address] [employer] Designer: Mauricio Kern MD BASIC METABOLIC PANELon 04-14 GLUCOSE Normal [facility] Comment on above: Result Comment: TEST NOT PERFORMED No specimen received. Performed By: #### 4 96, 7600, 6517, 97845 #### [facility] of [address], [address] [place] [address] Fabric Designer: Mauricio Kern MD HEMOGLOBIN A1con 05-11-2022 HEMOGLOBIN A1c Normal [facility] Comment on above: Result Comment: TEST NOT PERFORMED No specimen received. Performed By: #### 4 96, 7600, 6517, 85472 #### [facility] of [address], [address] [place] [address] Fabric Designer: Mauricio Kern MD LIPID PANEL, STANDARDon 04-14 CHOL/HDLC RATIO Normal [facility] Comment on above: Result Comment: TEST NOT PERFORMED No specimen received. Performed By: #### 4 96, 7600, 6517, 77561 #### [facility] of [address], [address] [place] [address] Fabric Designer: Mauricio Kern MD CHOLESTEROL, TOTAL Normal [facility] Comment on above: Result Comment: TEST NOT PERFORMED No specimen received. Performed By: #### 4 96, 7600, 6517, 89553 #### [facility] of [address], [address] [place] [address] Fabric Designer: Mauricio Kern MD HDL CHOLESTEROL Normal [facility] Comment on above: Result Comment: TEST NOT PERFORMED No specimen received. Performed By: #### 4 96, 7600, 6517, 89222 #### [facility] of [address], [address] [place] [address] Fabric Designer: Mauricio Kern MD LDL-CHOLESTEROL Normal [facility] Comment on above: Result Comment: TEST NOT PERFORMED No specimen received. Performed By: #### 4 96, 7600, 6517, 54395 #### [facility] [address], [address] [place] [address] Fabric Designer: Mauricio Kern MD NON HDL CHOLESTEROL Normal [facility] Comment on above: Result Comment: TEST NOT PERFORMED No specimen received. Performed By: #### 4 96, 7600, 6517, 97293 #### [facility] [address], [address] [place] [address] [employer] Designer: Mauricio Kern MD TRIGLYCERIDES Normal [facility] Comment on above: Result Comment: TEST NOT PERFORMED No specimen received. Performed By: #### 4 96, 7600, 6517, 90293 #### [facility] [address], [address] [place] [address] Fabric Designer: Mauricio Kern MD BASIC METABOLIC PANELon 06-2 Calcium [Mass/Vol] 9.1 mg/dL Normal 8.6-10.4 [facility] Comment on above: Performed By: #### 1 0165, 496, 8590 #### [facility] [place] [address] Fabric Designer: Mauricio Kern MD Chloride [Moles/Vol] 105 mmol/L Normal 98-110 [facility] Comment on above: Performed By: #### 1 0165, 496, 7600 #### [facility] [address], [address] [place] [address] Fabric Designer: Mauricio Kern MD CO2 [Moles/Vol] 25 mmol/L Normal 20-32 [facility] Comment on above: Performed By: #### 1 0165, 496, 7600 #### [facility] [address], [address] [place] [address] Fabric Designer: Mauricio Kern MD Creatinine [Mass/Vol] 1.73 mg/dL High 0.60-0.93 [facility] Comment on above: Result Comment: For patients >49 years of age, the reference limit for Creatinine is approximately 13% higher for people identified as -Georgian. Performed By: #### 1 0165, 496, 7600 #### [facility] [address], [address] [place] [address] Fabric Designer: Mauricio Kern MD eGFR NON-AFR. ROMANIAN 28 mL/min/1.73m2 Low > OR = 60 [facility] Comment on above: Performed By: #### 1 0165, 49, 7600 #### [facility] [place] [address] Fabric Designer: Mauricio Kern MD GFR/1.73 sq M.predicted among blacks MDRD (S/P/Bld) [Vol rate/Area] 32 mL/min/{1.73_m2} Low > OR = 60 [facility] Comment on above: Performed By: #### 1 016, 496, 7600 #### [facility] [place] [address] Fabric Designer: Mauricio Kern MD Glucose [Mass/Vol] 137 mg/dL High 65-99 [facility] Comment on above: Result Comment: Fasting reference interval For someone without known diabetes, a glucose value >125 mg/dL indicates that they may have diabetes and this should be confirmed with a follow-up test. Performed By: #### 1 0165, 496, 7600 #### [facility] [address], [address] [place] [address] Fabric Designer: Mauricio Kern MD Potassium [Moles/Vol] 4.6 mmol/L Normal 3.5-5.3 [facility] Comment on above: Performed By: #### 1 0165, 496, 7600 #### [facility] [place] [address] Fabric Designer: Mauricio Kern MD Sodium [Moles/Vol] 142 mmol/L Normal 135-146 [facility] Comment on above: Performed By: #### 1 0165, 496, 7600 #### [facility] [address], [address] [place] [address] Fabric Designer: Mauricio Kern MD Urea nitrogen [Mass/Vol] 65 mg/dL High 7-25 [facility] Comment on above: Performed By: #### 1 0165, 496, 7600 #### [facility] [address], [address] [place] [address] Fabric Designer: Mauricio Kern MD Urea nitrogen/Creatinine [Mass ratio] 38 mg/mg High 6- [facility] Comment on above: Performed By: #### 1 0165, 496, 7600 #### [facility] [address], [address] [place] [address] Fabric Designer: Mauricio Kern MD HEMOGLOBIN A1con 05-04-2022 HEMOGLOBIN [...] 1 0165, 496, 7600 #### [facility] [address], [address] [place] [address] Fabric Designer: Mauriico Kern MD LIPID PANEL, STANDARDon 04-13 Cholesterol [Mass/Vol] 163 mg/dL Normal <200 [facility] Comment on above: Order Comment: FASTI NG:YES PATIENT UNABLE TO VOID; ADVISED TO RETURN FOR COLLECTION. FASTING: YES Performed By: #### 1 0165, 496, 7600 #### [facility] [address], [address] [place] [address] Fabric Designer: Mauricio Kern MD Cholesterol in HDL [Mass/Vol] 51 mg/dL Normal > OR = 50 [facility] Comment on above: Order Comment: FASTI NG:YES PATIENT UNABLE TO VOID; ADVISED TO RETURN FOR COLLECTION. FASTING: YES Performed By: #### 1 0165, 496, 7600 #### [facility] [address], [address] [place] [address] Fabric Designer: Mauricio Kern MD Cholesterol in LDL [Mass/Vol] [...] LDL-C. Sean BREAUX et al. SHRUTHI. 2013;310(19): 7404-5290 (http://education.[employer]/faq/XWQ168) Performed By: #### 1 0165, 498, 4020 #### [facility] [address], [address] [place] [address] Fabric Designer: Mauricio Kern MD Cholesterol.total/C holesterol in HDL [Mass ratio] 3.2 {ratio} Normal <5.0 [facility] Comment on above: Order Comment: FASTI NG:YES PATIENT UNABLE TO VOID; ADVISED TO RETURN FOR COLLECTION. FASTING: YES Performed By: #### 1 0165, 496, 7600 #### [facility] [address], [address] [place], [place] [id number] Fabric Designer: Mauricio Kern MD NON HDL CHOLESTEROL 112 [...] 1 0165, 496, 7600 #### [facility] [address], [address] Fabric Designer: Mauricio Kern MD Triglyceride [Mass/Vol] 181 mg/dL High <150 [facility] Comment on above: Order Comment: FASTI NG:YES PATIENT UNABLE TO VOID; ADVISED TO RETURN FOR COLLECTION. FASTING: YES Performed By: #### 1 0165, 496, 7600 #### [facility] [address], [address] [place] [address] Fabric Designer: Mauricio Kern MD PTH INTACTon 03-31-2022 PTH, Intact 111 pg/mL Critically high 15-65 [facility] Comment on above: Performed By: #### M G, URIC, RENAL #### [facility] [address] [place] [address] Dr. Nacho Jeffery FERRITINon 03-30-2022 Ferritin [Mass/Vol] 479.0 ng/mL Critically high 8.0-252.[address] [facility] Comment on above: Performed By: #### M G, URIC, RENAL #### [facility] [address] [place] [address] Dr. Nacho Jeffery HEMOGRAM AND PLATELon 2021 Hematocrit (Bld) [Volume fraction] 38.1 % Normal 36.0-48.[address] [facility] Comment on above: Performed By: #### M G, URIC, RENAL #### [facility] [address] [address] [address] Nacho Jeffery Hemoglobin (Bld) [Mass/Vol] 12.9 g/dL Normal 12.0-16.0 [facility] Comment on above: Performed By: #### M G, URIC, RENAL #### [facility] [address] [place] [address] Dr. Nacho Jfefery MCH (RBC) [Entitic mass] 32.8 pg Normal 26.7-34.[address] [facility] Comment on above: Performed By: #### M G, URIC, RENAL #### [facility] [address] [address] [address] Nacho Jeffery MCHC (RBC) [Mass/Vol] 33.9 g/dL Normal 29.9-35.2 [facility] Comment on above: Performed By: #### M G, URIC, RENAL #### [facility] [address] [address] [address] Nacho Jeffery MCV (RBC) [Entitic vol] 96.9 fL Normal 81.0-99.[address] [facility] Comment on above: Performed By: #### M G, URIC, RENAL #### [facility] [address] [address] [address] Nacho Jeffery PLT 191 103/ul Normal 150-[address] [facility] Comment on above: Performed By: #### M G, URIC, RENAL #### [facility] [address] [place] [address] Dr. Nacho Jeffery RBC 3.93 106/ul Critically low 4.20-5.40 [facility] Comment on above: Performed By: #### M G, URIC, RENAL #### [facility] [address] [address] [address] Nacho Jeffery WBC 7.2 103/ul Normal 4.0-11.[address] [facility] Comment on above: Performed By: #### M G, URIC, RENAL #### [facility] [address] [place] [address] Dr. Nacho Jeffery IRON AND TIBCon 03-30-2022 % SATURATION 21.6 % Normal [facility] Comment on above: Performed By: #### M G, URIC, RENAL #### [facility] [address] [address] [address] Nacho Jeffery Iron [Mass/Vol] 63.0 ug/dL Normal 50.0-170.0 [facility] Comment on above: Performed By: #### M G, URIC, RENAL #### [facility] [address] [address] [address] Nacho Jeffery TIBC DIRECT 292.0 ug/dL Normal 250.0-450.[address] [facility] Comment on above: Performed By: #### M G, URIC, RENAL #### [facility] [address] [address] [address] Nacho Jeffery MAGNESIUMon 03-30-2022 Magnesium [Mass/Vol] 1.7 mg/dL Critically low 1.8-2.[address] [facility] Comment on above: Performed By: #### M G, URIC, RENAL #### [facility] [address] [address] [address] Nacho Jeffery RENAL FUNCTION PANELon 03-30 Albumin [Mass/Vol] 3.4 g/dL Normal 3.4-5.0 [facility] Comment on above: Performed By: #### M G, URIC, RENAL #### [facility] [address] [place] [address] Dr. Nacho Jeffery Calcium [Mass/Vol] 9.3 mg/dL Normal 8.5-10.1 [facility] Comment on above: Performed By: #### M G, URIC, RENAL #### [facility] [address] [place] [address] Dr. Nacho Jeffery Chloride [Moles/Vol] 102 mmol/L Normal 98-107 [facility] Comment on above: Performed By: #### M G, URIC, RENAL #### [facility] [address] [place] [address] Dr. Nacho Jeffery CO2 [Moles/Vol] 31.7 mmol/L Normal 21.0-32.0 [facility] Comment on above: Performed By: #### M G, URIC, RENAL #### [facility] [address] [place] [address] Dr. Nacho Jeffery Creatinine [Mass/Vol] 2.05 mg/dL Critically high 0.55-1.02 [facility] Comment on above: Performed By: #### M G, URIC, RENAL #### [facility] [address] [place] [address] Dr. Nacho Jeffery EGFR-AF ROMANIAN 28 mL/min/1.73m2 Critically low >=60 [facility] Comment on above: Performed By: #### M G, URIC, RENAL #### [facility] [address] [address] [address] Nacho Jeffery EGFR-NON AF ROMANIAN 23 mL/min/1.73m2 Critically low >=[address] [facility] Comment on above: Performed By: #### M G, URIC, RENAL #### [facility] [address] [address] [address] Nacho Jeffery Glucose [Mass/Vol] 194 mg/dL Critically high 74-106 [facility] Comment on above: Performed By: #### M G, URIC, RENAL #### [facility] [address] [address] [address] Nacho Jeffery Phosphate [Mass/Vol] 3.2 mg/dL Normal 2.6-4.[address] [facility] Comment on above: Performed By: #### M G, URIC, RENAL #### [facility] [address] [address] [address] Nahco Jeffery Potassium [Moles/Vol] 4.6 mmol/L Normal 3.5-5.[address] [facility] Comment on above: Performed By: #### M G, URIC, RENAL #### [facility] [address] [address] [address] Nacho Jeffery Sodium [Moles/Vol] 141 mmol/L Normal 136-[address] [facility] Comment on above: Performed By: #### M G, URIC, RENAL #### [facility] [address] [address] [address] Nacho Jeffery Urea nitrogen [Mass/Vol] 64.0 mg/dL Critically high 7.0-18.[address] [facility] Comment on above: Performed By: #### M G, URIC, RENAL #### [facility] [address] [address] [address] Nacho Jeffery UA RANDOM W/MICROSCOPICon BACTERIA NONE SEEN Normal NONE SEEN [facility] Comment on above: Performed By: #### M G, URIC, RENAL #### [facility] [address] [address] [address] Nacho Jeffery Bilirubin Ql (U) Negative Normal NEGATIVE [facility] Comment on above: Performed By: #### M G, URIC, RENAL #### [facility] [address] [address] [address] Nacho Jeffery CAST NONE SEEN Normal NONE SEEN [facility] Comment on above: Performed By: #### M G, URIC, RENAL #### [facility] [address] [address] [address] Nacho Jeffery Clarity (U) CLEAR Normal CLEAR [facility] Comment on above: Performed By: #### M G, URIC, RENAL #### [facility] [address] [address] [address] Nacho Jeffery Color (U) LT. YELLOW Normal YELLOW [facility] Comment on above: Performed By: #### M G, URIC, RENAL #### [facility] [address] [place] [address] Dr. Nacho Jeffery Crystals LM Nom (Urine sed) NONE SEEN Normal NONE SEEN [facility] Comment on above: Performed By: #### M G, URIC, RENAL #### [facility] [address] [place] [address] Dr. Nacho Jeffery Epithelial cells LM Ql (Urine sed) FEW Abnormal NONE SEEN /RARE [facility] Comment on above: Performed By: #### M G, URIC, RENAL #### [facility] [address] [place] [address] Dr. Nacho Jeffery Glucose Ql (U) Negative Normal NEGATIVE [facility] Comment on above: Performed By: #### M G, URIC, RENAL #### [facility] [address] [address] [address] Nacho Jeffery Hemoglobin Ql (U) Negative Normal NEGATIVE [facility] Comment on above: Performed By: #### M G, URIC, RENAL #### [facility] [address] [place] [address] Dr. Nacho Jeffery Ketones Ql (U) Negative Normal NEGATIVE [facility] Comment on above: Performed By: #### M G, URIC, RENAL #### [facility] [address] [place] [address] Dr. Nacho Jeffery LEUKOCYTES SMALL Abnormal NEGATIVE [facility] Comment on above: Performed By: #### M G, URIC, RENAL #### [facility] [address] [address] [address] Nacho Jeffery MUCOUS NONE SEEN Normal NONE SEEN [facility] Comment on above: Performed By: #### M G, URIC, RENAL #### [facility] [address] [place] [address] Dr. Nacho Jeffery Nitrite Ql (U) Negative Normal NEGATIVE The [facility] [place] Comment on above: Performed By: #### M G, URIC, RENAL #### [facility] [address] [place] [address] [address] Nacho Jeffery pH (U) 5.5 [pH] Normal 5-9 [facility] Comment on above: Performed By: #### M G, URIC, RENAL #### [facility] [address] [place] [address] Dr. Nacho Jeffery RBC 0-2 Normal 0-2 [facility] Comment on above: Performed By: #### M G, URIC, RENAL #### [facility] [address] [place] [address] Dr. Nacho Jeffery SPEC GRAVITY 1.015 Normal 1.005-<=1.025 The [facility] Comment on above: Performed By: #### M G, URIC, RENAL #### [facility] [address] [place] [address] Dr. Nacho Jeffery UA PROTEIN Negative Normal NEGATIVE/ TRACE [facility] Comment on above: Performed By: #### M G, URIC, RENAL #### [facility] [address] [place] [address] Dr. Nacho Jeffery Urobilinogen Qn (U) 0.2 {Zuleyka'U}/dL Normal 0.2 - 1. 0 [facility] Comment on above: Performed By: #### M G, URIC, RENAL #### [facility] [address] [place] [address] Dr. Nacho Jeffery WBC 5-10 Abnormal NONE SEEN [facility] Comment on above: Performed By: #### M G, URIC, RENAL #### [facility] [address] [place] [address] [address] Nacho Jeffery URIC ACID SERUMon 03-30-2022 Urate [Mass/Vol] 7.0 mg/dL Critically high 2.6-6.[address] [facility] Comment on above: Performed By: #### M G, URIC, RENAL #### [facility] [address] [place] [address] Dr. Nacho Jeffery URINE T PROTEIN CREAT RATIOo n 03-30-2022 Protein (U) [Mass/Vol] 7.1 mg/dL Normal <=12.[address] [facility] Comment on above: Performed By: #### U RTPCR #### [facility] [address] [place] [address] Dr. Nacho Jeffery UR PROT CREAT RAT 0.06 Normal [facility] Comment on above: Performed By: #### U RTPCR #### [facility] [address] [place] [address] Dr. Nacho Jeffery URINE CREAT 113.23 mg/dL Normal 20.00-300.[address] [facility] Comment on above: Performed By: #### U RTPCR #### [facility] [address] [place] [address] Dr. Nacho Jeffery VITAMIN D 25 OHon 03-30-2022 VIT D 25-OH 57.4 ng/mL Normal [facility] Comment on above: Performed By: #### M G, URIC, RENAL #### [facility] [address] [place] [address] Dr. Nacho Jeffery VIT D RANGES SEE BELOW Normal [facility] Comment on above: Result Comment: <20 ng/mL Vit D deficient 20 - <30 ng/mL Vit D insufficient 30 - 100 ng/mL Vit D sufficient >100 ng/mL Potential Toxicity Performed By: #### M G, URIC, RENAL #### [facility] [address] [place] [address] Dr. Nacho Jeffery COMPREHENSIVE METABOLIC PANE Jared 08-30-2021 Albumin [Mass/Vol] 3.7 g/dL Normal 3.6-5.1 [facility] Comment on above: Performed By: #### 1 0231, 7600 #### [facility] of [place] [address] Fabric Designer: Mauricio Kern MD Albumin/Globulin [Mass ratio] 1.4 {ratio} Normal 1.0-2.5 [facility] Comment on above: Performed By: #### 1 0231, 7600 #### [facility] [place] [address] Fab[employer] Designer: Mauricio Kern MD ALP [Catalytic activity/Vol] 98 U/L Normal 37-153 [facility] Comment on above: Performed By: #### 1 0231, 7600 #### [facility] [place] [address] Fab[employer] Designer: Mauricio Kern MD ALT [Catalytic activity/Vol] 23 U/L Normal 6-29 [facility] Comment on above: Performed By: #### 1 0231, 7600 #### [facility] [place] [address] Fab[employer]er: Mauricio Kern MD AST [Catalytic activity/Vol] 22 U/L Normal 10-35 [facility] Comment on above: Performed By: #### 1 0231, 7600 #### [facility] [place] [address] Fab[employer] Designer: Mauricio Kern MD Bilirubin [Mass/Vol] 0.4 mg/dL Normal 0.2-1.2 [facility] Comment on above: Performed By: #### 1 0231, 7600 #### [facility] [place] [address] Fab[employer] Designer: Mauricio Kern MD Calcium [Mass/Vol] 9.2 mg/dL Normal 8.6-10.4 [facility] Comment on above: Performed By: #### 1 0231, 7600 #### [facility] [place] [address] Fab[employer] Designer: Mauricio Kern MD Chloride [Moles/Vol] 103 mmol/L Normal 98-110 [facility] Comment on above: Performed By: #### 1 0231, 7600 #### [facility] [address], [address] [place] [address] Fab[employer] Designer: Mauricio Kern MD CO2 [Moles/Vol] 28 mmol/L Normal 20-32 [facility] Comment on above: Performed By: #### 1 023, 7600 #### [facility] [address], [address] [place] [address] Fabric Designer: Mauricio Kern MD Creatinine [Mass/Vol] 2.22 mg/dL High 0.60-0.93 [facility] Comment on above: Result Comment: For patients >49 years of age, the reference limit for Creatinine is approximately 13% higher for people identified as -Georgian. Performed By: #### 1 023, 7600 #### [facility] of [address], [address] [place] [address] Fab[employer] Designer: Mauricio Kern MD eGFR NON-AFR. ROMANIAN 21 mL/min/1.73m2 Low > OR = 60 [facility] Comment on above: Performed By: #### 1 023, 7600 #### [facility] [place] [address] Fab[employer] Designer: Mauricio Kern MD GFR/1.73 sq M.predicted among blacks MDRD (S/P/Bld) [Vol rate/Area] 24 mL/min/{1.73_m2} Low > OR = 60 [facility] Comment on above: Performed By: #### 1 0231, 7600 #### [facility] of [address], [address] [place] [address] Fabric Designer: Mauricio Kern MD Globulin (S) [Mass/Vol] 2.7 g/dL Normal 1.9-3.7 [facility] Comment on above: Performed By: #### 1 0231, 7600 #### [facility] of [address], [address] [place] [address] Fabric Designer: Mauricio Kern MD Glucose [Mass/Vol] 107 mg/dL High 65-99 [facility] Comment on above: Result Comment: Fasting reference interval For someone without known diabetes, a glucose value between 100 and 125 mg/dL is consistent with prediabetes and should be confirmed with a follow-up test. Performed By: #### 1 0231, 7600 #### [facility] [place] [address] Fab[employer] Designer: Mauricio Kern MD Potassium [Moles/Vol] 4.7 mmol/L Normal 3.5-5.3 [facility] Comment on above: Performed By: #### 1 023, 7600 #### [facility] [place] [address] Fabric Designer: Mauricio Kern MD Protein [Mass/Vol] 6.4 g/dL Normal 6.1-8.1 [facility] Comment on above: Performed By: #### 1 023, 7600 #### [facility] [place] [address] Fabric Designer: Mauricio Kern MD Sodium [Moles/Vol] 141 mmol/L Normal 135-146 [facility] Comment on above: Performed By: #### 1 0231, 7600 #### [facility] [place] [address] Fabric Designer: Mauricio Kern MD Urea nitrogen [Mass/Vol] 69 mg/dL High 7-25 [facility] Comment on above: Performed By: #### 1 023, 7600 #### [facility] [place] [address] Fabric Designer: Mauricio Kern MD Urea nitrogen/Creatinine [Mass ratio] 31 mg/mg High 6-22 [facility] Comment on above: Performed By: #### 1 0231, 7600 #### [facility] [place] [address] Fabric Designer: Mauricio Kern MD LIPID PANEL, [address] Cholesterol [Mass/Vol] 142 mg/dL Normal <200 [facility] Comment on above: Order Comment: FASTI NG:YES FASTING: YES Performed By: #### 1 0231, 7600 #### [facility] [address], [address] [place] [address] Fabric Designer: Mauricio Kern MD Cholesterol in HDL [Mass/Vol] 47 mg/dL Low > OR = 50 [facility] Comment on above: Order Comment: FASTI NG:YES FASTING: YES Performed By: #### 1 0231, 7600 #### [facility] [address], [address] [place] [address] Fabric Designer: Mauricio Kern MD Cholesterol in LDL [Mass/Vol] [...] LDL-C. Sean BREAUX et al. SHRUTHI. 2013;310(19): 1348-0527 (http://education.[employer]/faq/WPR674) Performed By: #### 1 023, 7600 #### [facility] [address], [address] [place] [address] Fabric Designer: Mauricio Kern MD Cholesterol.total/C holesterol in HDL [Mass ratio] 3.0 {ratio} Normal <5.0 [facility] Comment on above: Order Comment: FASTI NG:YES FASTING: YES Performed By: #### 1 0231, 7600 #### [facility] [address], [address] [place] [address] Fabric Designer: Mauricio Kern MD NON HDL CHOLESTEROL 95 mg/dL (calc) Normal <130 [facility] Comment on above: Order Comment: FASTI NG:YES FASTING: YES Result Comment: For patients with diabetes plus 1 major ASCVD risk factor, treating to a non-HDL-C goal of <100 mg/dL (LDL-C of <70 mg/dL) is considered a therapeutic option. Performed By: #### 1 0231, 7600 #### [facility] [address], [address] [place] [address] Fabric Designer: Mauricio Kern MD Triglyceride [Mass/Vol] 188 mg/dL High <150 [facility] Comment on above: Order Comment: FASTI NG:YES FASTING: YES Performed By: #### 1 023, 0 #### [facility] [address], [address] [place] [address] Fabric Designer: Mauricio Kern MD BASIC METABOLIC PANELon 05- Calcium [Mass/Vol] 10.0 mg/dL Normal 8.6-10.3 [facility] Comment on above: Performed By: #### 0 0071 #### [facility] [address] [place] [address], [facility] Chloride [Moles/Vol] 101 mmol/L Normal 98-107 [facility] Comment on above: Performed By: #### 0 0071 #### [facility] [address] [place] [address], [place] CO2 [Moles/Vol] 28 mmol/L Normal 21-31 [facility] Comment on above: Performed By: #### 0 0071 #### [facility] [address] [place] [id number], [facility] Creatinine [Mass/Vol] 1.96 mg/dL High 0.60-1.20 [facility] Comment on above: Performed By: #### 0 0071 #### [facility] [address] [place] [id number], [facility] eGFR- 30 ml/min/1.73sq m Abnormal >60 [facility] Comment on above: Result Comment: Calc ulation may not be valid for patients over 70 years Performed By: #### 0 0071 #### [facility] [address] [place] [place] [address], [facility] eGFR- non- 24 ml/min/1.73sq m Abnormal >60 [facility] Comment on above: Result Comment: Calc ulation may not be valid for patients over 70 years Performed By: #### 0 0071 #### [facility] [address] [place] [address], [facility] Glucose [Mass/Vol] 171 mg/dL High 70-100 [facility] Comment on above: Performed By: #### 0 0071 #### [facility] [address] [facility] [address], [facility] Potassium [Moles/Vol] 3.9 mmol/L Normal 3.5-5.1 [facility] Comment on above: Performed By: #### 0 0071 #### [facility] [address] [place] [place] [address], [facility] Sodium [Moles/Vol] 139 mmol/L Normal 136-145 [facility] Comment on above: Performed By: #### 0 0071 #### [facility] [address] [place] [place] [address], [facility] Urea nitrogen [Mass/Vol] 66 mg/dL High 7-25 [facility] Comment on above: Performed By: #### 0 0071 #### [facility] [address] [facility] [place], [place] [id number] [place] [address] Cardiovascular Lab Reporton 03-30-2021 Cardiovascular Lab Report [facility] Patient Name: Adore Wolff [facility] MR #: [id number] Physician: Moe Parham, Department of M.D. Medicine Service Date: 03/30/2021 Division of Birthdate: 1940 Cardiology Room #: Adult Cardiovascular Services [facility] [address] [place], [place] [address] Cardiovascular Laboratory Report FINAL IMPRESSIONS: 1. Moderate [...] enzyme inhibitor/receptor micki. 4. Follow up with [facility] Cardiology in the next 2 [...] the left radial artery was obtained. A 6-Mosotho glide sheath was inserted without difficulty. Bilateral selective coronary angiography was performed using JL4 and a 4-Mosotho 3DRC catheter. After reviewing the images and [...] Parham M.D. Date Trans: 03/30/2021 03:19 P/molly [id number] cc: Fernie Clark M.D. [address] [place] [id number] [facility] Vital Signs Date Time Vital Sign Value Performing Clinician Facility 12-26-2024 09:33-0500 Body temperature 97.7 [degF] Fernie Clark DO Work Phone: [facility] [employer] [facility] 12-26-2024 09:33-0500 Diastolic blood pressure 78 mm[Hg] Fernie Molinalong DO Work Phone: [facility] [employer] [facility] 12-26-2024 09:33-0500 Heart rate 64 /min Fernie Molinalong DO Work Phone: [facility] [employer] 12-26-2024 09:33-0500 Respiratory rate 18 /min Fernie MolinaFastSpringng DO Work Phone: [facility] [employer] 12-26-2024 09:33-0500 SaO2% (BldA) [Mass fraction] 98 % Fernie FestEvolong DO [facility] 12-26-2024 09:33-0500 Systolic blood pressure 178 mm[Hg] Fernie Tracylong DO Work Phone: [facility] [employer] [facility] 12-19-2024 11:12-0500 Body mass index (BMI) [Ratio] 43.27 kg/m2 Fernie FestEvolong DO [facility] 12-19-2024 11:12-0500 Body temperature 97.7 [degF] Fernie Furlong DO Work Phone: [facility] [employer] [facility] 12-19-2024 11:12-0500 Body weight 117.94 kg Fernie Furlong DO Work Phone: [facility] [employer] 12-19-2024 11:12-0500 Heart rate 60 /min Fernie Furlong DO Work Phone: [facility] [employer] 12-19-2024 11:12-0500 Respiratory rate 18 /min Fernie Furlong DO Work Phone: [facility] [employer] [facility] 12-19-2024 11:12-0500 SaO2% (BldA) [Mass fraction] 95 % Fernie Furlong DO Work Phone: [facility] [employer] [facility] 11-04-2024 09:42-0500 Body height 165.1 cm Pfo 1 [facility] [employer] [facility] 11-04-2024 09:42-0500 Body mass index (BMI) [Ratio] 45.26 kg/m2 Pfo 1 [facility] [employer] [facility] 11-04-2024 09:42-0500 Body temperature 97.5 [degF] Pfo 1 [facility] [employer] [facility] 11-04-2024 09:42-0500 Body weight 123.38 kg Pfo 1 [facility] [employer] [facility] 11-04-2024 09:42-0500 Diastolic blood pressure 65 mm[Hg] Pfo 1 [facility] [employer] [facility] 11-04-2024 09:42-0500 Heart rate 65 /min Pfo 1 [facility] 11-04-2024 09:42-0500 Respiratory rate 18 /min Pfo 1 [facility] [employer] [facility] 11-04-2024 09:42-0500 SaO2% (BldA) [Mass fraction] 98 % Pfo 1 [facility] 11-04-2024 09:42-0500 Systolic blood pressure 153 mm[Hg] Pfo 1 [facility] 10-07-2024 09:29-0500 Body height 165.1 cm Pfo 2 [facility] 10-07-2024 09:29-0500 Body mass index (BMI) [Ratio] 45.26 kg/m2 Pfo 2 [facility] 10-07-2024 09:29-0500 Body temperature 97.59 [degF] Pfo 2 [facility] 10-07-2024 09:29-0500 Body weight 123.38 kg Pfo 2 [facility] 10-07-2024 09:29-0500 Diastolic blood pressure 63 mm[Hg] Pfo 2 [facility] 10-07-2024 09:29-0500 Heart rate 72 /min Pfo 2 [facility] 10-07-2024 09:29-0500 Respiratory rate 18 /min Pfo 2 [facility] 10-07-2024 09:29-0500 SaO2% (BldA) [Mass fraction] 94 % Pfo 2 [facility] 10-07-2024 09:29-0500 Systolic blood pressure 155 mm[Hg] Pfo 2 [facility] 10-01-2024 09:24-0500 Body height 165.1 cm Pfo 5 [facility] 10-01-2024 09:24-0500 Body mass index (BMI) [Ratio] 45.26 kg/m2 Pfo 5 [facility] 10-01-2024 09:24-0500 Body temperature 97.39 [degF] Pfo 5 [facility] 10-01-2024 09:24-0500 Body weight 123.38 kg Pfo 5 [facility] 10-01-2024 09:24-0500 Diastolic blood pressure 56 mm[Hg] Pfo 5 [facility] 10-01-2024 09:24-0500 Heart rate 76 /min Pfo 5 [facility] 10-01-2024 09:24-0500 Respiratory rate 16 /min Pfo 5 [facility] 10-01-2024 09:24-0500 SaO2% (BldA) [Mass fraction] 96 % Pfo 5 [facility] 10-01-2024 09:24-0500 Systolic blood pressure 153 mm[Hg] Pfo 5 [facility] 09-10-2024 09:21-0400 Body temperature 97.7 [degF] Pfo 5 [facility] 09-10-2024 09:21-0400 Diastolic blood pressure 61 mm[Hg] Pfo 5 [facility] 09-10-2024 09:21-0400 Heart rate 68 /min Pfo 5 [facility] 09-10-2024 09:21-0400 Respiratory rate 18 /min Pfo 5 [facility] 09-10-2024 09:21-0400 SaO2% (BldA) [Mass fraction] 99 % Pfo 5 [facility] 09-10-2024 09:21-0400 Systolic blood pressure 164 mm[Hg] Pfo 5 [facility] 08-27-2024 09:27-0400 Body height 165.1 cm Pfo 5 [facility] 08-27-2024 09:27-0400 Body mass index (BMI) [Ratio] 46.1 kg/m2 Pfo 5 [facility] 08-27-2024 09:27-0400 Body temperature 97.39 [degF] Pfo 5 [facility] 08-27-2024 09:27-0400 Body weight 125.65 kg Pfo 5 [facility] 08-27-2024 09:27-0400 Diastolic blood pressure 86 mm[Hg] Pfo 5 [facility] 08-27-2024 09:27-0400 Heart rate 75 /min Pfo 5 [facility] 08-27-2024 09:27-0400 Respiratory rate 16 /min Pfo 5 [facility] 08-27-2024 09:27-0400 SaO2% (BldA) [Mass fraction] 98 % Pfo 5 [facility] 08-27-2024 09:270400 Systolic blood pressure 151 mm[Hg] Pfo 5 [facility] 08-20-2024 09:17-0400 Body height 165.1 cm Pfo 5 [facility] 08-20-2024 09:17-0400 Body mass index (BMI) [Ratio] 46.1 kg/m2 Pfo 5 [facility] 08-20-2024 09:17-0400 Body temperature 97.59 [degF] Pfo 5 [facility] 08-20-2024 09:17-0400 Body weight 125.65 kg Pfo 5 [facility] 08-20-2024 09:17-0400 Diastolic blood pressure 67 mm[Hg] Pfo 5 [facility] 08-20-2024 09:17-0400 Heart rate 66 /min Pfo 5 [facility] 08-20-2024 09:17-0400 Respiratory rate 16 /min Pfo 5 [facility] 08-20-2024 09:17-0400 SaO2% (BldA) [Mass fraction] 99 % Pfo 5 [facility] 08-20-2024 09:17-0400 Systolic blood pressure 167 mm[Hg] Pfo 5 [facility] 08-13-2024 09:20-0400 Body height 165.1 cm Pfo 4 [facility] 08-13-2024 09:20-0400 Body mass index (BMI) [Ratio] 46.1 kg/m2 Pfo 4 [facility] 08-13-2024 09:20-0400 Body temperature 97.59 [degF] Pfo 4 [facility] 08-13-2024 09:20-0400 Body weight 125.65 kg Pfo 4 [facility] 08-13-2024 09:20-0400 Diastolic blood pressure 65 mm[Hg] Pfo 4 [facility] 08-13-2024 09:20-0400 Heart rate 70 /min Pfo 4 [facility] 08-13-2024 09:20-0400 Respiratory rate 16 /min Pfo 4 [facility] 08-13-2024 09:20-0400 SaO2% (BldA) [Mass fraction] 96 % Pfo 4 [facility] 08-13-2024 09:20-0400 Systolic blood pressure 169 mm[Hg] Pfo 4 [facility] 08-06-2024 09:27-0400 Body height 165.1 cm Pfo 5 [facility] 08-06-2024 09:27-0400 Body mass index (BMI) [Ratio] 46.1 kg/m2 Pfo 5 [facility] 08-06-2024 09:27-0400 Body temperature 97.5 [degF] Pfo 5 [facility] 08-06-2024 09:27-0400 Body weight 125.65 kg Pfo 5 [facility] 08-06-2024 09:27-0400 Diastolic blood pressure 54 mm[Hg] Pfo 5 [facility] 08-06-2024 09:27-0400 Heart rate 73 /min Pfo 5 [facility] 08-06-2024 09:27-0400 Respiratory rate 16 /min Pfo 5 [facility] 08-06-2024 09:27-0400 SaO2% (BldA) [Mass fraction] 95 % Pfo 5 [facility] 08-06-2024 09:27-0400 Systolic blood pressure 160 mm[Hg] Pfo 5 [facility] 07-30-2024 09:22-0400 Body height 165.1 cm Pfo 5 [facility] 07-30-2024 09:22-0400 Body mass index (BMI) [Ratio] 46.26 kg/m2 Pfo 5 [facility] 07-30-2024 09:22-0400 Body temperature 97.2 [degF] Pfo 5 [facility] 07-30-2024 09:22-0400 Body weight 126.1 kg Pfo 5 [facility] 07-30-2024 09:22-0400 Diastolic blood pressure 63 mm[Hg] Pfo 5 [facility] 07-30-2024 09:22-0400 Heart rate 68 /min Pfo 5 [facility] 07-30-2024 09:22-0400 Respiratory rate 16 /min Pfo 5 [facility] 07-30-2024 09:22-0400 SaO2% (BldA) [Mass fraction] 94 % Pfo 5 [facility] 07-30-2024 09:22-0400 Systolic blood pressure 148 mm[Hg] Pfo 5 [facility] 07-23-2024 09:25-0400 Body height 165.1 cm Pfo 5 [facility] 07-23-2024 09:25-0400 Body mass index (BMI) [Ratio] 46.26 kg/m2 Pfo 5 [facility] 07-23-2024 09:25-0400 Body weight 126.1 kg Pfo 5 [facility] 07-23-2024 09:25-0400 Diastolic blood pressure 55 mm[Hg] Pfo 5 [facility] 07-23-2024 09:25-0400 Heart rate 62 /min Pfo 5 [facility] 07-23-2024 09:25-0400 Respiratory rate 16 /min Pfo 5 [facility] 07-23-2024 09:25-0400 SaO2% (BldA) [Mass fraction] 97 % Pfo 5 [facility] 07-23-2024 09:25-0400 Systolic blood pressure 155 mm[Hg] Pfo 5 [facility] 07-16-2024 09:44-0400 Body height 165.1 cm Pfo 5 [facility] 07-16-2024 09:44-0400 Body mass index (BMI) [Ratio] 46.26 kg/m2 Pfo 5 [facility] 07-16-2024 09:44-0400 Body temperature 97.7 [degF] Pfo 5 [facility] 07-16-2024 09:44-0400 Body weight 126.1 kg Pfo 5 [facility] 07-16-2024 09:44-0400 Diastolic blood pressure 54 mm[Hg] Pfo 5 [facility] 07-16-2024 09:44-0400 Heart rate 70 /min Pfo 5 [facility] 07-16-2024 09:44-0400 Respiratory rate 16 /min Pfo 5 [facility] 07-16-2024 09:44-0400 SaO2% (BldA) [Mass fraction] 100 % Pfo 5 [facility] 07-16-2024 09:44-0400 Systolic blood pressure 160 mm[Hg] Pfo 5 [facility] 07-09-2024 09:49-0400 Body height 165.1 cm Pfo 1 [facility] 07-09-2024 09:49-0400 Body mass index (BMI) [Ratio] 46.26 kg/m2 Pfo 1 [facility] 07-09-2024 09:49-0400 Body temperature 98.2 [degF] Pfo 1 [facility] 07-09-2024 09:49-0400 Body weight 126.1 kg Pfo 1 [facility] 07-09-2024 09:49-0400 Diastolic blood pressure 52 mm[Hg] Pfo 1 [facility] 07-09-2024 09:49-0400 Heart rate 78 /min Pfo 1 [facility] 07-09-2024 09:49-0400 Respiratory rate 16 /min Pfo 1 [facility] 07-09-2024 09:49-0400 SaO2% (BldA) [Mass fraction] 96 % Pfo 1 [facility] 07-09-2024 09:49-0400 Systolic blood pressure 147 mm[Hg] Pfo 1 [facility] 07-02-2024 09:34-0400 Body height 165.1 cm Pfo 1 [facility] 07-02-2024 09:34-0400 Body mass index (BMI) [Ratio] 46.26 kg/m2 Pfo 1 [facility] 07-02-2024 09:34-0400 Body temperature 97.39 [degF] Pfo 1 [facility] 07-02-2024 09:34-0400 Body weight 126.1 kg Pfo 1 [facility] 07-02-2024 09:34-0400 Diastolic blood pressure 60 mm[Hg] Pfo 1 [facility] 07-02-2024 09:34-0400 Heart rate 66 /min Pfo 1 [facility] 07-02-2024 09:34-0400 Respiratory rate 16 /min Pfo 1 [facility] 07-02-2024 09:34-0400 SaO2% (BldA) [Mass fraction] 98 % Pfo 1 [facility] 07-02-2024 09:34-0400 Systolic blood pressure 153 mm[Hg] Pfo 1 [facility] 06-25-2024 09:26-0400 Body height 165.1 cm Pfo 7 [facility] 06-25-2024 09:26-0400 Body mass index (BMI) [Ratio] 46.26 kg/m2 Pfo 7 [facility] 06-25-2024 09:26-0400 Body temperature 97.39 [degF] Pfo 7 [facility] 06-25-2024 09:26-0400 Body weight 126.1 kg Pfo 7 [facility] 06-25-2024 09:26-0400 Diastolic blood pressure 66 mm[Hg] Pfo 7 [facility] 06-25-2024 09:26-0400 Heart rate 83 /min Pfo 7 [facility] 06-25-2024 09:26-0400 Respiratory rate 16 /min Pfo 7 [facility] 06-25-2024 09:26-0400 SaO2% (BldA) [Mass fraction] 98 % Pfo 7 [facility] 06-25-2024 09:26-0400 Systolic blood pressure 156 mm[Hg] Pfo 7 [facility] 06-18-2024 09:30-0400 Body height 165.1 cm Pfo 1 [facility] 06-18-2024 09:30-0400 Body mass index (BMI) [Ratio] 46.1 kg/m2 Pfo 1 [facility] 06-18-2024 09:30-0400 Body temperature 97.5 [degF] Pfo 1 [facility] 06-18-2024 09:30-0400 Body weight 125.65 kg Pfo 1 [facility] 06-18-2024 09:30-0400 Diastolic blood pressure 46 mm[Hg] Pfo 1 [facility] 06-18-2024 09:30-0400 Heart rate 72 /min Pfo 1 [facility] 06-18-2024 09:30-0400 Respiratory rate 20 /min Pfo 1 [facility] 06-18-2024 09:30-0400 SaO2% (BldA) [Mass fraction] 95 % Pfo 1 [facility] 06-18-2024 09:30-0400 Systolic blood pressure 148 mm[Hg] Pfo 1 [facility] 06-11-2024 09:21-0400 Body height 165.1 cm Pfo 1 [facility] 06-11-2024 09:21-0400 Body mass index (BMI) [Ratio] 46.26 kg/m2 Pfo 1 [facility] 06-11-2024 09:21-0400 Body temperature 97.59 [degF] Pfo 1 [facility] 06-11-2024 09:21-0400 Body weight 126.1 kg Pfo 1 [facility] 06-11-2024 09:21-0400 Diastolic blood pressure 60 mm[Hg] Pfo 1 [facility] 06-11-2024 09:21-0400 Heart rate 88 /min Pfo 1 [facility] 06-11-2024 09:21-0400 Respiratory rate 20 /min Pfo 1 [facility] 06-11-2024 09:21-0400 SaO2% (BldA) [Mass fraction] 96 % Pfo 1 [facility] 06-11-2024 09:21-0400 Systolic blood pressure 147 mm[Hg] Pfo 1 [facility] 05-28-2024 09:34-0400 Body height 165.1 cm Pfo 1 [facility] 05-28-2024 09:34-0400 Body mass index (BMI) [Ratio] 46.43 kg/m2 Pfo 1 [facility] 05-28-2024 09:34-0400 Body temperature 97.5 [degF] Pfo 1 [facility] 05-28-2024 09:34-0400 Body weight 126.55 kg Pfo 1 [facility] 05-28-2024 09:34-0400 Diastolic blood pressure 66 mm[Hg] Pfo 1 [facility] 05-28-2024 09:34-0400 Heart rate 71 /min Pfo 1 [facility] 05-28-2024 09:34-0400 Respiratory rate 20 /min Pfo 1 [facility] 05-28-2024 09:34-0400 SaO2% (BldA) [Mass fraction] 99 % Pfo 1 [facility] 05-28-2024 09:34-0400 Systolic blood pressure 152 mm[Hg] Pfo 1 [facility] 05-27-2024 13:09-0400 Body height 165.1 cm Fernie Furlong DO Work Phone: [facility] [employer] [facility] 05-27-2024 13:09-0400 Body mass index (BMI) [Ratio] 46.64 kg/m2 Fernie Furlong DO Work Phone: [facility] 05-27-2024 13:09-0400 Body temperature 97.9 [degF] Fernie Furlong DO Work Phone: [facility] 05-27-2024 13:09-0400 Body weight 127.14 kg Fernie Furlong DO Work Phone: [facility] 05-27-2024 13:09-0400 Diastolic blood pressure 60 mm[Hg] Fernie Furlong DO Work Phone: [facility] 05-27-2024 13:09-0400 Heart rate 74 /min Fernie Furlong DO Work Phone: [facility] 05-27-2024 13:09-0400 Respiratory rate 18 /min Fernie Furlong DO Work Phone: [facility] 05-27-2024 13:09-0400 SaO2% (BldA) [Mass fraction] 94 % Fernie Furlong DO Work Phone: [facility] 05-27-2024 13:09-0400 Systolic blood pressure 140 mm[Hg] Fernie Furlong DO Work Phone: [facility] 05-21-2024 09:27-0400 Body height 165.1 cm Pfo 1 [facility] 05-21-2024 09:27-0400 Body mass index (BMI) [Ratio] 46.43 kg/m2 Pfo 1 [facility] 05-21-2024 09:27-0400 Body temperature 97.7 [degF] Pfo 1 [facility] 05-21-2024 09:27-0400 Body weight 126.55 kg Pfo 1 [facility] 05-21-2024 09:27-0400 Diastolic blood pressure 46 mm[Hg] Pfo 1 [facility] 05-21-2024 09:27-0400 Heart rate 63 /min Pfo 1 [facility] 05-21-2024 09:27-0400 Respiratory rate 20 /min Pfo 1 [facility] 05-21-2024 09:27-0400 SaO2% (BldA) [Mass fraction] 95 % Pfo 1 [facility] 05-21-2024 09:27-0400 Systolic blood pressure 167 mm[Hg] Pfo 1 [facility] 05-14-2024 09:15-0400 Body height 165.1 cm Pfo 1 [facility] 05-14-2024 09:15-0400 Body mass index (BMI) [Ratio] 46.43 kg/m2 Pfo 1 [facility] 05-14-2024 09:15-0400 Body temperature 97.81 [degF] Pfo 1 [facility] 05-14-2024 09:15-0400 Body weight 126.55 kg Pfo 1 [facility] 05-14-2024 09:15-0400 Diastolic blood pressure 59 mm[Hg] Pfo 1 [facility] 05-14-2024 09:15-0400 Heart rate 72 /min Pfo 1 [facility] 05-14-2024 09:15-0400 Respiratory rate 20 /min Pfo 1 [facility] 05-14-2024 09:15-0400 SaO2% (BldA) [Mass fraction] 95 % Pfo 1 [facility] 05-14-2024 09:15-0400 Systolic blood pressure 161 mm[Hg] Pfo 1 [facility] 05-07-2024 09:25-0400 Body height 165.1 cm Pfo 1 [facility] 05-07-2024 09:25-0400 Body mass index (BMI) [Ratio] 47.09 kg/m2 Pfo 1 [facility] 05-07-2024 09:25-0400 Body temperature 98.4 [degF] Pfo 1 [facility] 05-07-2024 09:25-0400 Body weight 128.37 kg Pfo 1 [facility] 05-07-2024 09:25-0400 Diastolic blood pressure 47 mm[Hg] Pfo 1 [facility] 05-07-2024 09:25-0400 Heart rate 69 /min Pfo 1 [facility] 05-07-2024 09:25-0400 Respiratory rate 20 /min Pfo 1 [facility] [employer] [facility] 05-07-2024 09:25-0400 SaO2% (BldA) [Mass fraction] 95 % Pfo 1 [facility] 05-07-2024 09:25-0400 Systolic blood pressure 169 mm[Hg] Pfo 1 [facility] 05-01-2024 13:52-0400 Body height 165.1 cm [facility] 05-01-2024 13:52-0400 Body mass index (BMI) [Ratio] 47.5 kg/m2 [facility] 05-01-2024 13:52-0400 Body temperature 96.7 [degF] [facility] 05-01-2024 13:52-0400 Body weight 129.38 kg [facility] 05-01-2024 13:52-0400 Diastolic blood pressure 60 mm[Hg] [facility] 05-01-2024 13:52-0400 Heart rate 76 /min [facility] 05-01-2024 13:52-0400 Respiratory rate 18 /min [facility] 05-01-2024 13:52-0400 SaO2% (BldA) [Mass fraction] 95 % [facility] 05-01-2024 13:52-0400 Systolic blood pressure 130 mm[Hg] [facility] 04-30-2024 09:19-0400 Body height 165.1 cm Pfo 1 [facility] 04-30-2024 09:19-0400 Body mass index (BMI) [Ratio] 47.26 kg/m2 Pfo 1 [facility] 04-30-2024 09:19-0400 Body temperature 97.81 [degF] Pfo 1 [facility] 04-30-2024 09:19-0400 Body weight 128.82 kg Pfo 1 [facility] 04-30-2024 09:19-0400 Diastolic blood pressure 68 mm[Hg] Pfo 1 [facility] 04-30-2024 09:19-0400 Heart rate 65 /min Pfo 1 [facility] 04-30-2024 09:190400 Respiratory rate 20 /min Pfo 1 [facility] 04-30-2024 09:190400 SaO2% (BldA) [Mass fraction] 93 % Pfo 1 [facility] 04-30-2024 09:190400 Systolic blood pressure 175 mm[Hg] Pfo 1 [facility] 04-23-2024 09:28-0400 Body height 165.1 cm Pfo 6 [facility] 04-23-2024 09:28-0400 Body mass index (BMI) [Ratio] 46.93 kg/m2 Pfo 6 [facility] 04-23-2024 09:28-0400 Body temperature 97.7 [degF] Pfo 6 [facility] 04-23-2024 09:28-0400 Body weight 127.91 kg Pfo 6 [facility] 04-23-2024 09:28-0400 Diastolic blood pressure 56 mm[Hg] Pfo 6 [facility] 04-23-2024 09:28-0400 Heart rate 69 /min Pfo 6 [facility] 04-23-2024 09:28-0400 Respiratory rate 24 /min Pfo 6 [facility] 04-23-2024 09:280400 SaO2% (BldA) [Mass fraction] 98 % Pfo 6 [facility] 04-23-2024 09:28-0400 Systolic blood pressure 177 mm[Hg] Pfo 6 [facility] 04-16-2024 09:190400 Body height 165.1 cm Pfo 6 [facility] 04-16-2024 09:19-0400 Body mass index (BMI) [Ratio] 46.76 kg/m2 Pfo 6 [facility] 04-16-2024 09:19-0400 Body temperature 97.39 [degF] Pfo 6 [facility] 04-16-2024 09:19-0400 Body weight 127.46 kg Pfo 6 [facility] 04-16-2024 09:19-0400 Diastolic blood pressure 65 mm[Hg] Pfo 6 [facility] 04-16-2024 09:19-0400 Heart rate 72 /min Pfo 6 [facility] 04-16-2024 09:19-0400 Respiratory rate 18 /min Pfo 6 [facility] 04-16-2024 09:19-0400 SaO2% (BldA) [Mass fraction] 96 % Pfo 6 [facility] 04-16-2024 09:19-0400 Systolic blood pressure 177 mm[Hg] Pfo 6 [facility] 04-09-2024 09:33-0400 Body height 165.1 cm Pfo 6 [facility] 04-09-2024 09:33-0400 Body mass index (BMI) [Ratio] 46.59 kg/m2 Pfo 6 [facility] 04-09-2024 09:33-0400 Body temperature 97.59 [degF] Pfo 6 [facility] 04-09-2024 09:33-0400 Body weight 127.01 kg Pfo 6 [facility] 04-09-2024 09:33-0400 Diastolic blood pressure 66 mm[Hg] Pfo 6 [facility] 04-09-2024 09:33-0400 Heart rate 66 /min Pfo 6 [facility] 04-09-2024 09:33-0400 Respiratory rate 20 /min Pfo 6 [facility] 04-09-2024 09:33-0400 SaO2% (BldA) [Mass fraction] 96 % Pfo 6 [facility] 04-09-2024 09:33-0400 Systolic blood pressure 169 mm[Hg] Pfo 6 [facility] 04-02-2024 09:24-0400 Body height 165.1 cm Pfo 4 [facility] 04-02-2024 09:24-0400 Body mass index (BMI) [Ratio] 46.43 kg/m2 Pfo 4 [facility] 04-02-2024 09:24-0400 Body temperature 97.7 [degF] Pfo 4 [facility] 04-02-2024 09:24-0400 Body weight 126.55 kg Pfo 4 [facility] 04-02-2024 09:24-0400 Diastolic blood pressure 58 mm[Hg] Pfo 4 [facility] 04-02-2024 09:24-0400 Heart rate 71 /min Pfo 4 [facility] 04-02-2024 09:24-0400 Respiratory rate 20 /min Pfo 4 [facility] 04-02-2024 09:24-0400 SaO2% (BldA) [Mass fraction] 96 % Pfo 4 [facility] 04-02-2024 09:24-0400 Systolic blood pressure 168 mm[Hg] Pfo 4 [facility] 03-26-2024 09:32-0400 Body height 165.1 cm Pfo 6 [facility] 03-26-2024 09:32-0400 Body mass index (BMI) [Ratio] 46.1 kg/m2 Pfo 6 [facility] 03-26-2024 09:32-0400 Body temperature 97.7 [degF] Pfo 6 [facility] 03-26-2024 09:32-0400 Body weight 125.65 kg Pfo 6 [facility] 03-26-2024 09:32-0400 Diastolic blood pressure 67 mm[Hg] Pfo 6 [facility] 03-26-2024 09:32-0400 Heart rate 67 /min Pfo 6 [facility] 03-26-2024 09:32-0400 Respiratory rate 20 /min Pfo 6 [facility] 03-26-2024 09:32-0400 SaO2% (BldA) [Mass fraction] 95 % Pfo 6 [facility] 03-26-2024 09:32-0400 Systolic blood pressure 152 mm[Hg] Pfo 6 [facility] 03-19-2024 09:37-0400 Body height 165.1 cm Pfo 4 [facility] 03-19-2024 09:37-0400 Body mass index (BMI) [Ratio] 45.93 kg/m2 Pfo 4 [facility] 03-19-2024 09:37-0400 Body temperature 97.9 [degF] Pfo 4 [facility] 03-19-2024 09:37-0400 Body weight 125.19 kg Pfo 4 [facility] 03-19-2024 09:37-0400 Diastolic blood pressure 67 mm[Hg] Pfo 4 [facility] 03-19-2024 09:37-0400 Heart rate 65 /min Pfo 4 [facility] 03-19-2024 09:37-0400 Respiratory rate 20 /min Pfo 4 [facility] 03-19-2024 09:37-0400 SaO2% (BldA) [Mass fraction] 93 % Pfo 4 [facility] 03-19-2024 09:37-0400 Systolic blood pressure 180 mm[Hg] Pfo 4 [facility] 03-12-2024 09:30-0400 Body height 165.1 cm Pfo 7 [facility] 03-12-2024 09:30-0400 Body mass index (BMI) [Ratio] 45.83 kg/m2 Pfo 7 [facility] 03-12-2024 09:30-0400 Body temperature 97.5 [degF] Pfo 7 [facility] 03-12-2024 09:30-0400 Body weight 124.92 kg Pfo 7 [facility] 03-12-2024 09:30-0400 Diastolic blood pressure 55 mm[Hg] Pfo 7 [facility] 03-12-2024 09:30-0400 Heart rate 60 /min Pfo 7 [facility] 03-12-2024 09:30-0400 Respiratory rate 20 /min Pfo 7 [facility] 03-12-2024 09:30-0400 SaO2% (BldA) [Mass fraction] 95 % Pfo 7 [facility] 03-12-2024 09:30-0400 Systolic blood pressure 181 mm[Hg] Pfo 7 [facility] 02-25-2024 14:54-0400 Body height 165.1 cm Fernie Clark DO Work Phone: [facility] 02-25-2024 14:54-0400 Body mass index (BMI) [Ratio] 44.56 kg/m2 Fernie Furlong DO Work Phone: [facility] 02-25-2024 14:54-0400 Body temperature 98.29 [degF] Fernie Furlong DO Work Phone: [facility] 02-25-2024 14:54-0400 Body weight 121.47 kg Fernie Furlong DO Work Phone: [facility] 02-25-2024 14:54-0400 Diastolic blood pressure 70 mm[Hg] Fernie Furlong DO Work Phone: [facility] 02-25-2024 14:54-0400 Heart rate 60 /min Fernie Furlong DO Work Phone: [facility] 02-25-2024 14:54-0400 SaO2% (BldA) [Mass fraction] 95 % Fernie Furlong DO Work Phone: [facility] 02-25-2024 14:54-0400 Systolic blood pressure 140 mm[Hg] Fernie Furlong DO Work Phone: [facility] 02-13-2024 09:26-0400 Body height 165.1 cm Pfo 6 [facility] 02-13-2024 09:26-0400 Body mass index (BMI) [Ratio] 44.6 kg/m2 Pfo 6 [facility] 02-13-2024 09:26-0400 Body temperature 97.7 [degF] Pfo 6 [facility] 02-13-2024 09:26-0400 Body weight 121.56 kg Pfo 6 [facility] 02-13-2024 09:26-0400 Diastolic blood pressure 60 mm[Hg] Pfo 6 [facility] 02-13-2024 09:26-0400 Heart rate 60 /min Pfo 6 [facility] 02-13-2024 09:26-0400 Respiratory rate 18 /min Pfo 6 [facility] 02-13-2024 09:26-0400 SaO2% (BldA) [Mass fraction] 94 % Pfo 6 [facility] 02-13-2024 09:26-0400 Systolic blood pressure 162 mm[Hg] Pfo 6 [facility] 02-06-2024 09:30-0400 Body height 165.1 cm Pfo 6 [facility] 02-06-2024 09:30-0400 Body mass index (BMI) [Ratio] 44.6 kg/m2 Pfo 6 [facility] 02-06-2024 09:30-0400 Body temperature 97.9 [degF] Pfo 6 [facility] 02-06-2024 09:30-0400 Body weight 121.56 kg Pfo 6 [facility] 02-06-2024 09:30-0400 Diastolic blood pressure 75 mm[Hg] Pfo 6 [facility] 02-06-2024 09:30-0400 Heart rate 60 /min Pfo 6 [facility] 02-06-2024 09:30-0400 Respiratory rate 188 /min Pfo 6 [facility] 02-06-2024 09:30-0400 SaO2% (BldA) [Mass fraction] 98 % Pfo 6 [facility] 02-06-2024 09:30-0400 Systolic blood pressure 176 mm[Hg] Pfo 6 [facility] 01-30-2024 09:25-0400 Body height 165.1 cm Pfo 6 [facility] 01-30-2024 09:25-0400 Body mass index (BMI) [Ratio] 44.93 kg/m2 Pfo 6 [facility] 01-30-2024 09:25-0400 Body temperature 97.7 [degF] Pfo 6 [facility] 01-30-2024 09:25-0400 Body weight 122.47 kg Pfo 6 [facility] 01-30-2024 09:25-0400 Diastolic blood pressure 60 mm[Hg] Pfo 6 [facility] 01-30-2024 09:25-0400 Heart rate 56 /min Pfo 6 [facility] 01-30-2024 09:25-0400 Respiratory rate 18 /min Pfo 6 [facility] 01-30-2024 09:25-0400 SaO2% (BldA) [Mass fraction] 93 % Pfo 6 [facility] 01-30-2024 09:25-0400 Systolic blood pressure 168 mm[Hg] Pfo 6 [facility] 01-23-2024 09:33-0400 Body height 165.1 cm Pfo 6 [facility] 01-23-2024 09:33-0400 Body mass index (BMI) [Ratio] 45.93 kg/m2 Pfo 6 [facility] 01-23-2024 09:33-0400 Body temperature 97.39 [degF] Pfo 6 [facility] 01-23-2024 09:33-0400 Body weight 125.19 kg Pfo 6 [facility] 01-23-2024 09:33-0400 Diastolic blood pressure 73 mm[Hg] Pfo 6 [facility] 01-23-2024 09:33-0400 Heart rate 66 /min Pfo 6 [facility] 01-23-2024 09:33-0400 Respiratory rate 18 /min Pfo 6 [facility] 01-23-2024 09:33-0400 SaO2% (BldA) [Mass fraction] 98 % Pfo 6 [facility] 01-23-2024 09:33-0400 Systolic blood pressure 180 mm[Hg] Pfo 6 [facility] 01-16-2024 09:24-0500 Body height 165.1 cm Pfo 6 [facility] 01-16-2024 09:24-0500 Body mass index (BMI) [Ratio] 46.1 kg/m2 Pfo 6 [facility] 01-16-2024 09:24-0500 Body temperature 98.01 [degF] Pfo 6 [facility] 01-16-2024 09:24-0500 Body weight 125.65 kg Pfo 6 [facility] 01-16-2024 09:24-0500 Diastolic blood pressure 80 mm[Hg] Pfo 6 [facility] 01-16-2024 09:24-0500 Heart rate 71 /min Pfo 6 [facility] 01-16-2024 09:24-0500 Respiratory rate 18 /min Pfo 6 [facility] 01-16-2024 09:24-0500 SaO2% (BldA) [Mass fraction] 97 % Pfo 6 [facility] 01-16-2024 09:24-0500 Systolic blood pressure 180 mm[Hg] Pfo 6 [facility] 01-09-2024 09:36-0500 Body height 165.1 cm Pfo 3 [facility] 01-09-2024 09:36-0500 Body mass index (BMI) [Ratio] 46.1 kg/m2 Pfo 3 [facility] 01-09-2024 09:36-0500 Body temperature 97.9 [degF] Pfo 3 [facility] 01-09-2024 09:36-0500 Body weight 125.65 kg Pfo 3 [facility] 01-09-2024 09:36-0500 Diastolic blood pressure 75 mm[Hg] Pfo 3 [facility] 01-09-2024 09:36-0500 Heart rate 70 /min Pfo 3 [facility] 01-09-2024 09:36-0500 Respiratory rate 18 /min Pfo 3 [facility] 01-09-2024 09:36-0500 SaO2% (BldA) [Mass fraction] 97 % Pfo 3 [facility] 01-09-2024 09:36-0500 Systolic blood pressure 180 mm[Hg] Pfo 3 [facility] 01-02-2024 09:37-0500 Body temperature 98.01 [degF] Pfo 4 [facility] 01-02-2024 09:37-0500 Diastolic blood pressure 72 mm[Hg] Pfo 4 [facility] 01-02-2024 09:37-0500 Heart rate 62 /min Pfo 4 [facility] 01-02-2024 09:37-0500 Respiratory rate 18 /min Pfo 4 [facility] 01-02-2024 09:37-0500 SaO2% (BldA) [Mass fraction] 95 % Pfo 4 [facility] 01-02-2024 09:37-0500 Systolic blood pressure 184 mm[Hg] Pfo 4 [facility] 12-26-2023 09:37-0500 Body height 165.1 cm Pfo 4 [facility] 12-26-2023 09:37-0500 Body mass index (BMI) [Ratio] 46.1 kg/m2 Pfo 4 [facility] 12-26-2023 09:37-0500 Body temperature 97.7 [degF] Pfo 4 [facility] 12-26-2023 09:37-0500 Body weight 125.65 kg Pfo 4 [facility] 12-26-2023 09:37-0500 Diastolic blood pressure 64 mm[Hg] Pfo 4 [facility] 12-26-2023 09:37-0500 Heart rate 67 /min Pfo 4 [facility] 12-26-2023 09:37-0500 Respiratory rate 18 /min Pfo 4 [facility] 12-26-2023 09:37-0500 SaO2% (BldA) [Mass fraction] 96 % Pfo 4 [facility] 12-26-2023 09:37-0500 Systolic blood pressure 177 mm[Hg] Pfo 4 [facility] 12-19-2023 09:30-0500 Body height 165.1 cm Pfo 2 [facility] 12-19-2023 09:30-0500 Body mass index (BMI) [Ratio] 46.13 kg/m2 Pfo 2 [facility] 12-19-2023 09:30-0500 Body temperature 97.39 [degF] Pfo 2 [facility] 12-19-2023 09:30-0500 Body weight 125.74 kg Pfo 2 [facility] 12-19-2023 09:30-0500 Diastolic blood pressure 67 mm[Hg] Pfo 2 [facility] 12-19-2023 09:30-0500 Heart rate 67 /min Pfo 2 [facility] 12-19-2023 09:30-0500 Respiratory rate 18 /min Pfo 2 [facility] 12-19-2023 09:30-0500 SaO2% (BldA) [Mass fraction] 97 % Pfo 2 [facility] 12-19-2023 09:30-0500 Systolic blood pressure 196 mm[Hg] Pfo 2 [facility] 12-12-2023 09:25-0500 Body height 165.1 cm Pfo 2 [facility] 12-12-2023 09:25-0500 Body mass index (BMI) [Ratio] 45.43 kg/m2 Pfo 2 [facility] 12-12-2023 09:25-0500 Body temperature 97.5 [degF] Pfo 2 [facility] 12-12-2023 09:25-0500 Body weight 123.83 kg Pfo 2 [facility] 12-12-2023 09:25-0500 Diastolic blood pressure 71 mm[Hg] Pfo 2 [facility] 12-12-2023 09:25-0500 Heart rate 70 /min Pfo 2 [facility] 12-12-2023 09:25-0500 Respiratory rate 18 /min Pfo 2 [facility] 12-12-2023 09:25-0500 SaO2% (BldA) [Mass fraction] 98 % Pfo 2 [facility] 12-12-2023 09:25-0500 Systolic blood pressure 166 mm[Hg] Pfo 2 [facility] 12-05-2023 09:15-0500 Body height 165.1 cm Pfo 2 [facility] 12-05-2023 09:15-0500 Body mass index (BMI) [Ratio] 44.76 kg/m2 Pfo 2 [facility] 12-05-2023 09:15-0500 Body temperature 97.39 [degF] Pfo 2 [facility] 12-05-2023 09:15-0500 Body weight 122.02 kg Pfo 2 [facility] 12-05-2023 09:15-0500 Diastolic blood pressure 70 mm[Hg] Pfo 2 [facility] 12-05-2023 09:15-0500 Heart rate 71 /min Pfo 2 [facility] 12-05-2023 09:15-0500 Respiratory rate 18 /min Pfo 2 [facility] 12-05-2023 09:15-0500 SaO2% (BldA) [Mass fraction] 96 % Pfo 2 [facility] 12-05-2023 09:15-0500 Systolic blood pressure 157 mm[Hg] Pfo 2 [facility] 11-28-2023 09:17-0500 Body height 165.1 cm Pfo 1 [facility] 11-28-2023 09:17-0500 Body mass index (BMI) [Ratio] 44.93 kg/m2 Pfo 1 [facility] 11-28-2023 09:17-0500 Body temperature 97.2 [degF] Pfo 1 [facility] 11-28-2023 09:17-0500 Body weight 122.47 kg Pfo 1 [facility] 11-28-2023 09:17-0500 Diastolic blood pressure 56 mm[Hg] Pfo 1 [facility] [facility]28-2023 09:17-0500 Heart rate 79 /min Pfo 1 [facility] 11-28-2023 09:17-0500 Respiratory rate 18 /min Pfo 1 [facility] 11-28-2023 09:17-0500 SaO2% (BldA) [Mass fraction] 99 % Pfo 1 [facility] 11-28-2023 09:17-0500 Systolic blood pressure 156 mm[Hg] Pfo 1 [facility] 11-26-2023 13:40-0500 Body height 165.1 cm Fernie Furlong DO Work Phone: [facility] 11-26-2023 13:40-0500 Body mass index (BMI) [Ratio] 44.45 kg/m2 Fernie Furlong DO Work Phone: [facility] 11-26-2023 13:40-0500 Body temperature 97.3 [degF] Fernie Furlong DO Work Phone: [facility] 11-26-2023 13:40-0500 Body weight 121.16 kg Fernie Furlong DO Work Phone: [facility] [employer] [facility] 11-26-2023 13:40-0500 Diastolic blood pressure 62 mm[Hg] Fernie Furlong DO Work Phone: [facility] [employer] [facility] 11-26-2023 13:40-0500 Heart rate 62 /min Fernie Furlong DO Work Phone: [facility] 11-26-2023 13:40-0500 SaO2% (BldA) [Mass fraction] 96 % Fernie Furlong DO Work Phone: [facility] [employer] [facility] 11-26-2023 13:40-0500 Systolic blood pressure 130 mm[Hg] Fernie Furlong DO Work Phone: [facility] 11-21-2023 10:01-0500 Body height 165.1 cm Pfo 1 [facility] 11-21-2023 10:01-0500 Body mass index (BMI) [Ratio] 44.6 kg/m2 Pfo 1 [facility] 11-21-2023 10:01-0500 Body temperature 97.81 [degF] Pfo 1 [facility] [employer] [facility] 11-21-2023 10:01-0500 Body weight 121.56 kg Pfo 1 [facility] 11-21-2023 10:01-0500 Diastolic blood pressure 52 mm[Hg] Pfo 1 [facility] [employer] [facility] 11-21-2023 10:01-0500 Heart rate 62 /min Pfo 1 [facility] 11-21-2023 10:01-0500 Respiratory rate 18 /min Pfo 1 [facility] [employer] [facility] 11-21-2023 10:01-0500 SaO2% (BldA) [Mass fraction] 94 % Pfo 1 [facility] [employer] [facility] 11-21-2023 10:01-0500 Systolic blood pressure 122 mm[Hg] Pfo 1 [facility] 11-16-2023 09:00-0500 Body temperature 96.6 [degF] DO Fernie Furlong Work Phone: [facility] 11-16-2023 09:00-0500 Diastolic blood pressure 74 mm[Hg] DO Fernie Furlong Work Phone: [facility] 11-16-2023 09:00-0500 Heart rate 71 /min DO Fernie Furlong Work Phone: [facility] 11-16-2023 09:00-0500 Respiratory rate 18 /min DO Fernie Furlong Work Phone: [facility] 11-16-2023 09:00-0500 SaO2% (BldA) [Mass fraction] 97 % DO Fernie FestEvolong Work Phone: [facility] 11-16-2023 09:00-0500 Systolic blood pressure 148 mm[Hg] DO Fernie Furlong Work Phone: [facility] 08-23-2023 12:20-0400 Body height 165.1 cm Gia Tammy Other [employer] Other 08-23-2023 12:20-0400 Body mass index (BMI) [Ratio] 44.09 kg/m2 Gia Tammy Other [facility] Other 08-23-2023 12:20-0400 Body temperature 96.6 [degF] Gia Tammy Other [facility] Other 08-23-2023 12:20-0400 Body weight 120.2 kg Gia Tammy Other [facility] Other 08-23-2023 12:20-0400 Diastolic blood pressure 86 mm[Hg] Gia Tammy Other [facility] Other 08-23-2023 12:20-0400 Respiratory rate 18 /min Gia Tammy Other [facility] Other 08-23-2023 12:20-0400 SaO2% (BldA) [Mass fraction] 96 % Gia Tammy Other [facility] Other 08-23-2023 12:20-0400 Systolic blood pressure 138 mm[Hg] Gia Tammy Other [facility] Other 01-25-2023 12:20-0400 Body height 165.1 cm Gia Tammy Other [facility] Other 01-25-2023 12:20-0400 Body mass index (BMI) [Ratio] 45.76 kg/m2 Gia Tammy Other [facility] Other 01-25-2023 12:20-0400 Body temperature 96.7 [degF] Gia Tammy Other [facility] Other 01-25-2023 12:20-0400 Body weight 124.74 kg Gia Tammy Other [facility] Other 01-25-2023 12:20-0400 Diastolic blood pressure 80 mm[Hg] Gia Tammy Other [facility] Other 01-25-2023 12:20-0400 Respiratory rate 18 /min Gia Tammy Other [facility] Other 01-25-2023 12:20-0400 SaO2% (BldA) [Mass fraction] 96 % Gia Tammy Other [facility]ont[facility] Other 01-25-2023 12:20-0400 Systolic blood pressure 139 mm[Hg] Gia Tammy Other [facility] Other 07-20-2022 13:00-0400 Body height 165.1 cm Gia Tammy Other [facility] Other 07-20-2022 13:00-0400 Body temperature 96 [degF] Gia Tammy Other [facility] Other 07-20-2022 13:00-0400 Diastolic blood pressure 71 mm[Hg] Gia Tammy Other [facility] Other 07-20-2022 13:00-0400 Respiratory rate 18 /min Gia Tammy Other [facility] Other 07-20-2022 13:00-0400 SaO2% (BldA) [Mass fraction] 96 % Gia Tammy Other Sp[facility] Other 07-20-2022 13:00-0400 Systolic blood pressure 134 mm[Hg] Gia Tammy Other [facility] Other 04-06-2022 12:00-0400 Body height 165.1 cm Gia Tammy Other [facility] Other 04-06-2022 12:00-0400 Body mass index (BMI) [Ratio] 46.32 kg/m2 Gia Tammy Other [facility] Other 04-06-2022 12:00-0400 Body temperature 98 [degF] Gia Tammy Other [facility] Other 04-06-2022 12:00-0400 Body weight 126.28 kg Gia Tammy Other [facility] Other 04-06-2022 12:00-0400 Diastolic blood pressure 70 mm[Hg] Gia Tammy Other [facility] Other 04-06-2022 12:00-0400 Respiratory rate 20 /min Gia Tammy Other Spont[facility] Other 04-06-2022 12:00-0400 SaO2% (BldA) [Mass fraction] 93 % Gia Tammy Other [facility]ont[facility] Other 04-06-2022 12:00-0400 Systolic blood pressure 122 mm[Hg] Gia Tammy Other [facility] Other 12-27-2021 16:20-0500 Body height 165.1 cm Gia Tammy Other Spont[facility] Other 12-27-2021 16:20-0500 Body mass index (BMI) [Ratio] 46.29 kg/m2 Gia Tammy Other [facility] Other 12-27-2021 16:20-0500 Body temperature 96.2 [degF] Gia Tammy Other [facility] Other 12-27-2021 16:20-0500 Body weight 126.19 kg Gia Tammy Other [facility] Other 12-27-2021 16:20-0500 Diastolic blood pressure 78 mm[Hg] Gia Tammy Other [facility] Other 12-27-2021 16:20-0500 Respiratory rate 20 /min Gia Tammy Other [facility] Other 12-27-2021 16:20-0500 SaO2% (BldA) [Mass fraction] 95 % Gia Tammy Other [facility] Other 12-27-2021 16:20-0500 Systolic blood pressure 161 mm[Hg] Gia Tammy Other Spontaneously Other Encounters Encounter Date Encounter Type Care Provider Facility Start: 01-03-2025 End: 01-03-2025 Telephone encounter Magdalena [facility] Ashlyn hu Comment on above: status of patient patient update Start: 12-31-2024 End: 12-31-2024 Orders Only Fernie Clark DO [facility] Phone[facility] Comment on above: Lumbar stenosis with neurogenic claudication Start: 12-29-2024 End: 12-29-2024 Refill Livia Du CMA [facility] Comment on above: Lumbar stenosis with neurogenic claudication Start: 12-26-2024 End: 12-27-2024 ambulatory Fernierajinder Clark DO Work Phone: [facility] Internal Medicine - Family Medicine Comment on above: Acute cystitis with hematuria (Primary Dx); Essential hypertension; Acute right-sided low back pain without sciatica; Nausea; Anxiety Start: 12-19-2024 End: 12-27-2024 Refill Fernie Mascorrong DO Work Phone: [facility] Internal Medicine - Family Medicine Comment on above: Lumbar stenosis with neurogenic claudication Constipation, unspec ified constipation type (Primary Dx); Essential hypertension; Dysuria; History of UTI; History of sepsis; Chronic low back pain without sciatica, unspecified back pain laterality Start: 12-18-2024 End: 12-18-2024 Telephone encounter Bonny Bowles [facility] Neurology Comment on above: EMG order Start: 12-10-2024 End: 12-10-2024 Orders Only Fernie Clark DO Work Phone: [facility] - Family Medicine Start: 12-02-2024 End: 12-02-2024 Orders Only Fernie Clark DO Work Phone: [facility] - Family Medicine Comment on above: Lumbar stenosis with neurogenic claudication (Primary Dx) Start: 12-01-2024 End: 12-01-2024 Telephone encounter Jennifer Limacarolynn [facility] Ashlyn hu Comment on above: orders for patient t o be sent out to hospital for evaluation Start: 11-24-2024 End: 11-24-2024 Telephone encounter Fernie Clark DO Work Phone: [facility] - [facility] Start: 11-20-2024 End: 11-20-2024 ambulatory Fernie Clark DO Work Phone: [facility] Work Phone: Start: 11-20-2024 End: 11-20-2024 Departed Referred Fernie Clark DO Work Phone: [facility] Start: 11-18-2024 End: 11-18-2024 Orders Only Fannie hu [place] - Medical Oncology Comment on above: Hypomagnesemia (Prim fara Dx) Start: 11-17-2024 End: 11-19-2024 Telephone encounter Fernie Clark DO Work Phone: [facility] - [facility] Start: 11-17-2024 End: 11-17-2024 ambulatory FERNIE CLARK [facility] Start: 11-10-2024 End: 11-10-2024 ambulatory [facility] Start: 11-04-2024 End: 11-04-2024 ambulatory Pfo Infusion Bed 1 [facility] Comment on above: Hypomagnesemia (Prim fara Dx) Start: 11-03-2024 End: 11-03-2024 Refill Fernie Clark DO Work Phone: [facility] - Family Medicine Start: 11-03-2024 End: 11-03-2024 Orders Only Fernie Clark DO Work Phone: [facility] - [facility] Start: 11-03-2024 End: 11-03-2024 ambulatory Christian Curtis MD Facility:[facility] Start: 10-27-2024 End: 10-27-2024 ambulatory [facility] Start: 10-20-2024 End: 10-20-2024 Documentation procedure Clara Lira [facility] - Medical Oncology Start: 10-20-2024 End: 10-20-2024 [facility] Start: 10-13-2024 End: 10-13-2024 [facility] Start: 10-07-2024 End: 10-14-2024 Refill Fernie Clark DO Work Phone: [facility] Start: 10-07-2024 End: 10-07-2024 [facility] Comment on above: Hypomagnesemia (Prim fara Dx) Start: 10-06-2024 End: 10-06-2024 [facility] Start: 10-01-2024 End: 10-01-2024 ambulatory FERNIE G [facility] Comment on above: Hypomagnesemia (Prim fara Dx) Start: 09-29-2024 End: 09-29-2024 [facility] Start: 09-27-2024 End: 09-27-2024 Orders Only Fernie Mascorrong DO Work Phone: [facility] - Family Medicine Start: 09-26-2024 End: 09-26-2024 Evaluation and management of inpatient DANIEL GUERRERO [facility] Start: 09-22-2024 End: 09-22-2024 ambulatory [facility] Start: 09-15-2024 End: 09-15-2024 [facility] Start: 09-11-2024 End: 09-11-2024 Refill Fernie Clark DO Work Phone: [facility] - Family Medicine Start: 09-10-2024 End: 09-10-2024 Telephone encounter Nina Mcgee [facility] Neurology Comment on above: EMG NEW PATIENT Start: 09-10-2024 End: 09-10-2024 ambulatory [facility] Comment on above: Hypomagnesemia (Prim fara Dx) Start: 09-08-2024 End: 09-08-2024 [facility] Start: 09-04-2024 End: 09-04-2024 Orders Only Fernie Mascorrong DO Work Phone: [facility] - Family Medicine Comment on above: Paresthesia of right lower extremity (Primary Dx); Ross's esophagus with dysplasia Start: 09-01-2024 End: 09-01-2024 Documentation procedure Americo Lira [facility] - Medical Oncology Start: 09-01-2024 End: 09-01-2024 [facility] Start: 08-27-2024 End: 08-27-2024 [facility] Comment on above: Hypomagnesemia (Prim fara Dx) Start: 08-25-2024 End: 08-25-2024 [facility] Start: 08-22-2024 End: 08-25-2024 Refill Fernierajinder Molinalong DO Work Phone: [facility] - Family Medicine Comment on above: 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 ([facility]) (Primary Dx); Morbid obesity ([facility]) Start: 08-20-2024 End: 08-20-2024 ambulatory FERNIE G [facility] Comment on above: Hypomagnesemia (Prim fara Dx) Start: 08-18-2024 End: 08-18-2024 [facility] Start: 08-13-2024 End: 08-13-2024 [facility] Comment on above: Hypomagnesemia (Prim fara Dx) Start: 08-11-2024 End: 08-11-2024 ambulatory [facility] Start: 08-06-2024 End: 08-06-2024 [facility] Comment on above: Hypomagnesemia (Prim fara Dx) Start: 08-05-2024 End: 08-05-2024 Orders Only Fernie Jamarcus Roxann DO Work Phone: [facility] Internal Medicine - Family Medicine Start: 08-04-2024 End: 08-04-2024 [facility] Start: 07-30-2024 End: 07-30-2024 [facility] Comment on above: Hypomagnesemia (Prim fara Dx) Start: 07-28-2024 End: 07-28-2024 [facility] Start: 07-28-2024 End: 07-28-2024 ambulatory Christian Curtis MD Facility: [facility] Start: 07-23-2024 End: 07-23-2024 ambulatory [facility] Comment on above: Hypomagnesemia (Prim fara Dx) Start: 07-21-2024 End: 07-21-2024 [facility] Start: 07-17-2024 End: 07-17-2024 Refill Fernie Jamarcus Molinaangel luis DO Work Phone: [facility] Internal Medicine - Family Medicine Start: 07-16-2024 End: 07-16-2024 [facility] FERNIE MOLINAAMY [facility] Comment on above: Hypomagnesemia (Prim fara Dx) Start: 07-15-2024 End: 07-15-2024 [facility] FERNIE CLARK [facility] Start: 07-09-2024 End: 07-09-2024 [facility] FERNIE MOLINAAMY [facility] Comment on above: Hypomagnesemia (Prim fara Dx) Start: 07-07-2024 End: 07-07-2024 [facility] Start: 07-02-2024 End: 07-02-2024 [facility] FERNIE MOLINAAMY [facility] Comment on above: Hypomagnesemia (Prim fara Dx) Start: 06-30-2024 End: 06-30-2024 [facility] Start: 06-27-2024 End: 06-27-2024 Refill Fernie Clark DO Work Phone: [facility] Internal Medicine - Family [facility] Start: 06-25-2024 End: 06-25-2024 [facility] Comment on above: Hypomagnesemia (Prim fara Dx) Start: 06-23-2024 End: 06-23-2024 [facility] Start: 06-18-2024 End: 06-18-2024 [facility] Comment on above: Hypomagnesemia (Prim fara Dx) Start: 06-16-2024 End: 06-16-2024 [facility] Start: 06-11-2024 End: 06-11-2024 [facility] FERNIE MOLINAAMY [facility] Comment on above: Hypomagnesemia (Prim fara Dx) Start: 06-09-2024 End: 06-09-2024 [facility] Start: 06-04-2024 End: 06-04-2024 [facility] FERNIE [facility] Start: 06-02-2024 End: 06-02-2024 ambulatory [facility] Start: 05-30-2024 End: 05-30-2024 [facility] Start: 05-29-2024 End: 05-29-2024 Telephone encounter Fernie Ricketts [place] DO Work Phone: [facility] Start: 05-28-2024 End: 05-28-2024 ambulatory [facility] Comment on above: Hypomagnesemia (Prim fara Dx) Start: 05-27-2024 End: 05-27-2024 [facility] Start: 05-27-2024 End: 05-27-2024 Office [facility] 25 [facility] Comment on above: 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 Start: 05-26-2024 End: 05-26-2024 [facility] Start: 05-21-2024 End: 05-21-2024 [facility] Comment on above: Hypomagnesemia (Prim fara Dx) Start: 05-19-2024 End: 05-19-2024 ambulatory [facility] Start: 05-14-2024 End: 05-14-2024 ambulatory [facility] Comment on above: Hypomagnesemia (Prim fara Dx) Start: 05-12-2024 End: 05-12-2024 ambulatory [facility] Start: 05-07-2024 End: 05-07-2024 ambulatory [facility] Comment on above: Hypomagnesemia (Prim fara Dx) Start: 05-05-2024 End: 05-05-2024 [facility] Start: 05-01-2024 End: 05-01-2024 ambulatory [facility] Work Phone: Start: 05-01-2024 End: 05-01-2024 Patient encounter procedure [facility] Neph[facility] Tod Work Phone: Start: 04-30-2024 End: 04-30-2024 ambulatory [facility] Comment on above: Hypomagnesemia (Prim fara Dx) Start: 04-29-2024 End: 04-29-2024 Refill Fernie Ricketts [place] DO Work Phone: [facility] Internal Medicine - Family Medicine Start: 04-29-2024 End: 04-29-2024 Refill [facility] Internal Medicine - Family Medicine Start: 04-28-2024 Non-patient / Non-visit [facility] Nephrology Work Phone: Start: 04-28-2024 End: 04-28-2024 [facility] Start: 04-23-2024 End: 04-23-2024 [facility] Comment on above: Hypomagnesemia (Prim fara Dx) Start: 04-21-2024 End: 04-21-2024 [facility] Start: 04-16-2024 End: 04-16-2024 [facility] Comment on above: Hypomagnesemia (Prim fara Dx) Start: 04-14-2024 End: 04-14-2024 [facility] Start: 04-09-2024 End: 04-09-2024 Refill Fernie G Furlong DO Work Phone: [facility] Internal Medicine - Family Medicine Start: 04-09-2024 End: 04-09-2024 ambulatory FERNIE G [facility] Comment on above: Hypomagnesemia (Prim fara Dx) Start: 04-08-2024 End: 04-08-2024 [facility] Start: 04-02-2024 End: [facility]-02-[facility] Comment on above: Hypomagnesemia (Prim fara Dx) Start: 03-31-2024 End: 03-31-2024 Refill Fernie G Furlong DO Work Phone: [facility] - [facility] Start: 03-31-2024 End: 03-31-2024 [facility] Start: 03-26-2024 End: 03-26-2024 [facility] Comment on above: Hypomagnesemia (Prim fara Dx) Start: 03-24-2024 End: 03-24-2024 [facility] Start: 03-19-2024 End: 03-19-2024 ambulatory FERNIE G [facility] Comment on above: Hypomagnesemia (Prim fara Dx) Start: 03-17-2024 End: 03-17-2024 Refill Fernie G Furlong DO Work Phone: [facility] - Family [facility] Start: 03-17-2024 End: 03-17-2024 [facility] Start: 03-12-2024 End: 03-12-2024 ambulatory FERNIE G [facility] Comment on above: Hypomagnesemia (Prim fara Dx) Start: 03-10-2024 End: 03-10-2024 [facility] Start: 03-03-2024 End: 03-03-2024 [facility] Start: 02-25-2024 End: 02-25-2024 Office outpatient visit 15 minutes Fernie G Furlong DO Work Phone: [facility] Internal Medicine - Family Medicine Comment on above: Urinary incontinence , unspecified type (Primary Dx); Abnormality of gait and mobility Start: 02-25-2024 End: 02-25-2024 [facility] Start: 02-25-2024 End: 02-25-2024 Documentation procedure Millie Ireland [facility] On[facility] Start: 02-25-2024 End: 02-25-2024 [facility] Start: 02-20-2024 End: 02-20-2024 Documentation procedure Americo Lira [facility] Oncology Start: 02-19-2024 End: 02-19-2024 Documentation procedure Americo Lira [facility] Start: 02-18-2024 End: 02-18-2024 [facility] Start: 02-13-2024 End: 02-13-2024 [facility] Comment on above: Hypomagnesemia (Prim fara Dx) Start: 02-11-2024 End: 02-11-2024 [facility] Start: 02-06-2024 End: 02-06-2024 [facility] Comment on above: Hypomagnesemia (Prim fara Dx) Start: 02-04-2024 End: 02-04-2024 [facility] Start: 02-04-2024 End: 02-04-2024 ambulatory Christian Curtis MD Facility:[facility] Start: 01-30-2024 End: 01-30-2024 [facility] Comment on above: Hypomagnesemia (Prim fara Dx) Start: 01-28-2024 End: 01-28-2024 [facility] Start: 01-23-2024 End: 01-23-2024 ambulatory [facility] Comment on above: Hypomagnesemia (Prim fara Dx) Start: 01-21-2024 End: 01-21-2024 ambulatory [facility] Start: 01-21-2024 End: 01-21-2024 ambulatory Christian Curtis MD Facility:[facility] Start: 01-17-2024 Orders Only Fernie noguera DO Work Phone: [facility] - [facility] Comment on above: Hypertension 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 ([facility]) (Primary Dx) Start: 01-16-2024 End: 01-16-2024 ambulatory [facility] Comment on above: Hypomagnesemia (Prim fara Dx) Start: 01-14-2024 End: 01-14-2024 [facility] Start: 01-09-2024 End: 01-09-2024 [facility] Comment on above: Hypomagnesemia (Prim fara Dx) Start: 01-08-2024 End: 01-08-2024 Patient encounter procedure Fernie Clark DO Work Phone: [facility] Internal Medicine - Family Medicine Comment on above: Medicare annual well ness visit, subsequent (Primary Dx); Screening for depression Start: 01-08-2024 End: 01-08-2024 [facility] Start: 01-07-2024 End: 01-07-2024 [facility] Start: 01-02-2024 End: 01-11-2024 [facility] Comment on above: Hypomagnesemia (Prim fara Dx) Start: 12-31-2023 End: 12-31-2023 [facility] Start: 12-26-2023 End: 12-26-2023 [facility] Comment on above: Hypomagnesemia (Prim fara Dx) Start: 12-24-2023 End: 12-24-2023 [facility] Start: 12-19-2023 End: 12-19-2023 [facility] Comment on above: Hypomagnesemia (Prim fara Dx) Start: 12-17-2023 End: 12-17-2023 [facility] Start: 12-12-2023 End: 12-12-2023 ambulatory [facility] Comment on above: Hypomagnesemia (Prim fara Dx) Start: 12-11-2023 Refill Theresa Dhaval JEANNE [facility] Internal Medicine - Family Medicine Start: 12-10-2023 End: 12-10-2023 [facility] Start: 12-07-2023 Orders Only Fernie Molinalo ng DO Work Phone: [facility] Start: 12-05-2023 Telephone encounter [facility] Neph[facility] Start: 12-05-2023 End: 12-05-2023 ambulatory [facility] Comment on above: Hypomagnesemia (Prim fara Dx) Start: 12-04-2023 Refill Fernie Molinalo ng DO Work Phone: [facility] Start: 12-03-2023 End: 12-03-2023 [facility] Start: 11-28-2023 End: 11-28-2023 [facility] Comment on above: Hypomagnesemia (Prim fara Dx) Start: 11-26-2023 End: 11-26-2023 [facility] Start: 11-26-2023 End: 11-26-2023 Office outpatient visit 25 minutes Fernie Molinalong DO Work Phone: [facility] Comment on above: Hypertension 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 [facility] ([facility]); Mixed hyperlipidemia; Hypomagnesemia; 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; Morbid obesity ([facility]); Chronic obstructive pulmonary disease, unspecified COPD type ([facility]) Start: 11-26-2023 End: 11-26-2023 ambulatory FERNIE CLARK [facility] Start: 11-26-2023 End: 11-26-2023 ambulatory FERNIE CLARK [facility] Start: 11-21-2023 End: 11-21-2023 ambulatory [facility] 1 [facility] Comment on above: Hypomagnesemia (Prim fara Dx) Mixed hyperlipidemia (Primary Dx); Type 2 diabetes mellitus with stage 3b chronic kidney disease, with long-term current use of insulin ([facility]); Essential hypertension Start: 11-20-2023 Chart abstracting Felicity Merritt [facility] - Medical Oncology Start: 11-19-2023 End: 11-19-2023 ambulatory [facility] Comment on above: Hypomagnesemia (Prim fara Dx) Start: 11-16-2023 End: 11-16-2023 ambulatory DO Fernie Clark Work Phone: [facility] Work Phone: Start: 11-16-2023 End: 11-16-2023 Discharged Recurring DO Fernie Clark Work Phone: [facility]-Infusion Therapy - O/P Work Phone: Start: 11-12-2023 Refill Fernie noguera DO Work Phone: [facility] - [facility] Start: 08-23-2023 End: 08-23-2023 ambulatory Gia Munoz Other Spontaneously Other Start: 08-23-2023 Office outpatient vi sit 25 minutes Gia Munoz [facility] [place] Start: 06-15-[address] FERNIE CLARK Fac ility:[facility]1 Start: 01-25-2023 End: 01-26-[address] LUISA [place] . Spontaneously Other Start: 01-25-2023 Office outpatient vi sit 25 minutes Gia Tammy [facility] [place] Start: 01-15-2023 End: 01-16-2023 ambulatory GIA TAMMY Facility:[facility]1 Start: 12-06-2022 End: 12-06-2022 ambulatory [facility] Start: 11-09-2022 End: 11-10-[address] FERNIE CLARK Facility:[facility] Start: 10-26-2022 End: 10-27-[address] LUISA STERN . Facility:[facility] Start: 08-02-2022 End: 08-03-[address] LUISA STERN . Facility:[facility] Start: 07-20-2022 End: 07-20-2022 ambulatory Gia Tammy Other Spontaneously Other Start: 07-20-2022 Office outpatient vi sit 25 minutes Gia Tammy [facility] Start: 07-12-2022 End: 07-13-2022 ambulatory GIA TAMMY Facility:[facility] Start: 05-03-2022 End: 05-03-2022 ambulatory Gia Tammy Other Spontaneously Other Start: 05-03-2022 Telephone encounter Gia Tammy [facility] Start: 04-25-2022 End: 04-26-[address] LUISA STERN . Facility:[facility] Start: 04-06-2022 End: 04-06-2022 ambulatory Gia Tammy Other Spontaneously Other Start: 04-06-2022 Office outpatient vi sit 25 minutes Gia Tammy [facility] [place] Start: 03-30-2022 End: 03-31-2022 ambulatory GIA TAMMY Facility:[facility] Start: 03-30-2022 End: 03-31-[address] LUISA STERN . Facility: Start: 12-27-2021 End: 12-27-2021 ambulatory Gia Tammy Other Spontaneously Other Start: 12-27-2021 Office outpatient vi sit 15 minutes Gia Tammy [facility] Start: 11-28-2021 End: 11-28-2021 ambulatory Gia Tammy Other Spontaneously Other Start: 11-28-2021 Telephone encounter Gia Tammy [facility] Start: 11-24-2021 End: 11-24-2021 ambulatory Gia Tammy Other Spontaneously Other Start: 11-24-2021 Telephone encounter Gia Tammy [facility] Start: 03-30-2021 End: 03-31-2021 ambulatory EHAB Dino PARHAM Facility:[facility] Procedures Date Procedure Procedure Detail [...] Td Vaccines (2 - Td or Tdap) [facility] Start: 11-04-2025 Fall Risk Screening Fall Risk Screening [facility] Start: 10-07-2025 Fall Risk Screening Fall Risk Screening [facility] Start: 09-26-2025 Tobacco Screening Tobacco Screening [facility] Start: 08-27-2025 Adult BMI Screening Adult BMI Screening [facility] Start: 08-27-2025 Fall Risk Screening Fall Risk Screening [facility] Start: 08-20-2025 Adult BMI Screening Adult BMI Screening [facility] Start: 08-13-2025 Adult BMI Screening Adult BMI Screening [facility] Start: 08-06-2025 Tobacco Screening Tobacco Screening [facility] Start: 07-30-2025 Adult BMI Screening Adult BMI Screening [facility] Start: 07-30-2025 Tobacco Screening Tobacco Screening [facility] Start: 07-23-2025 Adult BMI Screening Adult BMI Screening [facility] Start: 07-16-2025 Adult BMI Screening Adult BMI Screening [facility] Start: 07-16-2025 Tobacco Screening Tobacco Screening [facility] Start: 07-09-2025 Adult BMI Screening Adult BMI Screening [facility] Start: 07-02-2025 Adult BMI Screening Adult BMI Screening [facility] Start: 06-25-2025 Adult BMI Screening Adult BMI Screening [facility] Start: 06-25-2025 Tobacco Screening Tobacco Screening [facility] Start: 06-18-2025 Adult BMI Screening Adult BMI Screening [facility] Start: 06-18-2025 Tobacco Screening Tobacco Screening [facility] Start: 06-11-2025 Adult BMI Screening Adult BMI Screening [facility] Start: 06-11-2025 Tobacco Screening Tobacco Screening [facility] Start: 06-04-2025 Adult BMI Screening Adult BMI Screening [facility] Start: 06-04-2025 Tobacco Screening Tobacco Screening [facility] Start: 05-28-2025 Adult BMI Screening [facility] Start: 05-28-2025 Tobacco Screening [facility] Start: 05-27-2025 Adult BMI Screening Adult [facility] Screening [facility] Start: 05-27-2025 Depression Screening Depression Screening [facility] Start: 05-27-2025 Tobacco Screening Tobacco Screening [facility] Start: 05-14-2025 Adult BMI Screening Adult BMI Screening [facility] Start: 05-14-2025 Tobacco Screening Tobacco Screening [facility] Start: 05-07-2025 Adult BMI Screening Adult BMI Screening [facility] Start: 05-07-2025 Fall Risk Screening Fall Risk [facility]ening [facility] Start: 05-07-2025 Tobacco Screening Tobacco Screening [facility] Start: 04-30-2025 Adult BMI Screening Adult BMI Screening [facility] Start: 04-30-2025 Tobacco Screening Tobacco Screening [facility] Start: 04-23-2025 Adult BMI Screening Adult BMI Screening [facility] Start: 04-23-2025 Tobacco Screening Tobacco Screening [facility] Start: 04-09-2025 Adult BMI Screening Adult BMI Screening [facility] Start: 04-09-2025 Tobacco Screening Tobacco Screening [facility] Start: 04-02-2025 Adult BMI Screening Adult BMI Screening [facility] Start: 04-02-2025 Tobacco Screening Tobacco Screening [facility] Start: 03-26-2025 Adult BMI Screening Adult BMI Screening [facility] Start: 03-26-2025 Tobacco Screening Tobacco Screening [facility] Start: 03-19-2025 Adult BMI Screening Adult BMI Screening [facility] Start: 03-19-2025 Tobacco Screening Tobacco Screening [facility] Start: 03-12-2025 Adult BMI Screening Adult BMI Screening [facility] Start: 02-24-2025 Depression Screening Depression Screening [facility] Start: 02-24-2025 Fall Risk Screening Fall Risk [facility]ening [facility] Start: 02-24-2025 Tobacco Screening Tobacco Screening [facility] Start: 02-12-2025 Adult BMI Screening Adult BMI Screening [facility] Start: 02-12-2025 Tobacco Screening Tobacco Screening [facility] Start: 02-05-2025 Adult BMI Screening Adult BMI Screening [facility] Start: 02-05-2025 Tobacco Screening Tobacco Screening [facility] Start: 01-29-2025 Adult BMI Screening Adult BMI Screening [facility] Start: 01-29-2025 Tobacco Screening Tobacco Screening [facility] Start: 01-22-2025 Adult BMI Screening Adult BMI Screening [facility] Start: 01-22-2025 Tobacco Screening Tobacco Screening [facility] Start: 01-15-2025 Adult BMI Screening Adult BMI Screening [facility] Start: 01-13-2025 End: 01-13-2025 Patient encounter procedure 01/13/2025 12:40 PM EST Of fice Visit [facility] Internal Medicine - Family Medicine [address] [place] [id number] [facility] Internal Medicine - Family Medicine Start: 01-09-2025 Adult BMI Screening Adult BMI Screening [facility] Start: 01-09-2025 Tobacco Screening Tobacco Screening [facility] Start: 01-08-2025 Depression Screening Depression Screening [facility] Start: 01-08-2025 Fall Risk Screening Fall Risk Screening [facility] Start: 01-08-2025 Medicare Annual Wellness Visit Medicare Annual Wellness Visi t [facility] Start: 01-02-2025 Tobacco Screening Tobacco Screening [facility] Start: 12-26-2024 Adult BMI Screening Adult BMI Screening [facility] Start: 12-26-2024 Tobacco Screening Tobacco Screening [facility] Start: 12-19-2024 Adult BMI Screening Adult BMI Screening [facility] Start: 12-19-2024 Tobacco Screening Tobacco Screening [facility] Start: 12-15-2024 End: 12-15-2024 Patient encounter procedure 12/15/2024 12:30 PM EST Procedure visit [facility] Adult Neurology [address] [place] [address] Ton Urbano MD [address] [place] [address] [facility] Start: 12-12-2024 Adult BMI Screening Adult BMI Screening [facility] Start: 12-10-2024 End: 12-10-2024 ambulatory 12/10/2024 9:30 AM EST Infusion Elida Ireland [facility] - Medical Oncology [address] [place] [phone] Elida Ireland [facility] - Medical Oncology Start: 12-05-2024 Adult BMI Screening Adult BMI Screening [facility] Start: 12-05-2024 Tobacco Screening Tobacco Screening [facility] Start: 12-04-2024 End: 12-04-2024 Patient encounter procedure 12/04/2024 1:30 PM EST Off ice Visit [facility] - [facility] [address] [place] [address] Fernie Clark, [address], [place] [address] [facility] Start: 12-03-2024 End: 12-03-2024 ambulatory 12/03/2024 9:30 AM EST Infusion Elida Ireland [facility] Medical Oncology [address] [place] [phone] Elida Ireland [facility] Medical Oncology Start: 11-28-2024 Adult BMI Screening Adult BMI Screening [facility] Start: 11-28-2024 Tobacco Screening Tobacco Screening [facility] Start: 11-27-2024 End: 11-27-2024 Patient encounter procedure 11/27/2024 1:00 PM EST Off ice Visit [facility] [address] [place] [address] Fernie Clark DO [address], [place] [address] [facility] Start: 11-26-2024 Adult BMI Screening Adult BMI Screening [facility] Start: 11-26-2024 Depression Screening Depression Screening [facility] Start: 11-26-2024 Fall Risk Screening Fall Risk Screening [facility] Start: 11-26-2024 Tobacco Screening Tobacco Screening [facility] Start: 11-26-2024 End: 11-26-2024 ambulatory 11/26/2024 9:30 AM EST Infusion Elida L Beka [facility] - Medical Oncology [address] [place] [phone] Elida L Beka [facility] - Medical Oncology Start: 11-21-2024 Adult BMI Screening Adult BMI Screening [facility] Start: 11-20-2024 Bacteria identified in Urine by Culture Urine Culture [facility] Start: 11-20-2024 Urine culture [facility] Start: 11-18-2024 End: 11-18-2024 ambulatory 11/18/2024 11:30 AM EST Infusion Elida L Beka [facility] - Medical Oncology [address] [place] [phone] Elida L Beka [facility] - Medical Oncology Start: 11-11-2024 End: 11-11-2024 ambulatory 11/11/2024 9:30 AM EST Infusion Elida L Beka [facility] - Medical Oncology [address] [place] [phone] Eilda L Beka [facility] - Medical Oncology Start: 11-04-2024 End: 11-04-2024 ambulatory 11/04/2024 9:30 AM EST Infusion Elida L Beka [facility] - Medical Oncology [address] [place] [phone] Elida L Beka [facility] - Medical Oncology Start: 10-29-2024 End: 10-29-2024 ambulatory 10/29/2024 9:30 AM EST Infusion Elida L Beka [facility] - Medical Oncology [address] [place] [phone] Elida René Beka [facility] - Medical Oncology Start: 10-22-2024 End: 10-22-2024 ambulatory 10/22/2024 9:30 AM EST Infusion Elida René Beka [facility] - Medical Oncology [address] [place] [address] Elida L Beka [facility] - Medical Oncology Start: 10-20-2024 Subsequent hospital visit by physician 10/20/2024 11:33 AM EST Hospital Encounter [facility] [address] [place] [address] Hypomagnesemia [facility] Comment on above: Hypomagnesemia Start: 10-18-2024 Adult BMI Screening Adult BMI Screening [facility] Start: 10-18-2024 Depression Screening Depression Screening [facility] Start: 10-18-2024 Tobacco Screening Tobacco Screening [facility] Start: 10-15-2024 End: 10-15-2024 ambulatory 10/15/2024 9:30 AM EST Infusion Elida Merritt Beka [facility] - Medical Oncology [address] [place] [phone] Elida L Beka [facility] - Medical Oncology Start: 10-08-2024 End: 10-08-2024 ambulatory 10/08/2024 9:30 AM EST Infusion Elida Merritt Beka [facility] - Medical Oncology [address] [place] [phone] Elida Merritt Beka [facility] - Medical Oncology Start: 10-07-2024 End: 10-07-2024 ambulatory 10/07/2024 9:30 AM EST Infusion Elida Merritt Beka [facility] - Medical Oncology [address] [place] [phone] Elida L Beka [facility] - Medical Oncology Start: 10-01-2024 End: 10-01-2024 ambulatory 10/01/2024 9:30 AM EST Infusion Elida Merritt Beka [facility] - Medical Oncology [address] [place] [phone] Elida L Beka [facility] - Medical Oncology Start: 09-26-2024 End: 09-26-2024 Admission to same day surgery center 09/26/2024 12:30 PM EST - 09/26/2024 1:30 PM EST Surgery [facility] - Endoscopy [address] [place] [address] Daniel Guerrero, DO [address] [place] [address] ESOPHAGOGASTRODUODENOSCOPY DIAGNOSTIC [02809 (CPT )] [facility] - Endoscopy Comment on above: ESOPHAGOGASTRODUODENOSCOPY DIAGNOSTIC [4 3235 (CPT )] Start: 09-26-2024 End: 09-26-2024 Esophagogastroduodenoscopy transoral diagnostic ESOPHAGOGASTRODUODENOSCOPY DIAGNOSTIC ross's esophagus 09/26/2024 12:30 PM EST [facility] Start: 09-26-2024 Subsequent hospital visit by physician 09/26/2024 12:30 PM EST Hospital Encounter [facility] - Endoscopy [address] [place] [address] Daniel Guerrero, DO [address] [place] [address] [facility] Endoscopy Start: 09-25-2024 End: 09-25-2024 ambulatory 09/25/2024 3:40 PM EST Suppo rt Visit [facility] - Pre Admit [address] [place] [address] [facility] - Pre Admit Start: 09-24-2024 End: 09-24-2024 ambulatory 09/24/2024 9:30 AM EST Infusion Elida Ireland [facility] - Medical Oncology [address] [place] [phone] Elida Ireland [facility] Oncology Start: 09-17-2024 End: 09-17-2024 ambulatory 09/17/2024 9:30 AM EST Infusion Elida Ireland [facility] - Medical Oncology [address] [place] [phone] Elida Ireland [facility] Oncology Start: 09-10-2024 End: 09-10-2024 ambulatory 09/10/2024 9:30 AM EDT Infusion Elida L Beka [facility] - Medical Oncology [address] [place] [address] Elida L Beka [facility] Oncology Start: 09-03-2024 End: 09-03-2024 ambulatory 09/03/2024 9:30 AM EDT Infusion Elida L Beka [facility] - Medical Oncology [address] [place] [address] Elida L Beka [facility] Oncology Start: 08-27-2024 End: 08-27-2024 ambulatory 08/27/2024 9:30 AM EDT Infusion Elida L Beka [facility] - Medical Oncology [address] [place] [phone] Elida L Beka [facility] Oncology Start: 08-20-2024 End: 08-20-2024 ambulatory 08/20/2024 9:30 AM EDT Infusion Elida L Beka [facility] Oncology [address] [place] [phone] Elida L Beka [facility]cology Start: 08-13-2024 End: 08-13-2024 ambulatory 08/13/2024 9:30 AM EDT Infusion Elida L Beka [facility] Oncology [address] [place] [phone] Elida L Beka [facility] Start: 08-06-2024 End: 08-06-2024 ambulatory 08/06/2024 9:30 AM EDT Infusion Elida L Beka [facility] Oncology [address] [place] [phone] Elida René Beka [facility] Oncology Start: 07-30-2024 End: 07-30-2024 ambulatory 07/30/2024 9:30 AM EDT Infusion Elida René Beka [facility] Oncology [address] [place] [phone] Elida Ireland [facility] Oncology Start: 07-24-2024 Fall Risk Screening Fall Risk Screening [facility] Start: 07-23-2024 End: 07-23-2024 ambulatory 07/23/2024 9:30 AM EDT Infusion Elida Ireland [facility] Medical Oncology [address] [place] [address] Elida Ireland [facility]cology Start: 07-16-2024 End: 07-16-2024 ambulatory 07/16/2024 9:30 AM EDT Infusion Elida Ireland [facility] Oncology [address] [place] [phone] Elidarudolph Ireland [facility] Oncology Start: 07-13-2024 COVID-19 Vaccine ( season) COVID-19 Vaccine () [facility] Start: 07-13-2024 COVID-19 Vaccine () COVID-19 Vaccine () [facility] Start: 07-09-2024 End: 07-09-2024 ambulatory 07/09/2024 9:30 AM EDT Infusion Elida Ireland [facility] Oncology [address] [place] [phone] Elida Ireland [facility] Start: 07-02-2024 End: 07-02-2024 ambulatory 07/02/2024 9:30 AM EDT Infusion Elida Ireland [facility] Oncology [address] [place] [phone] Elida L [place] [facility] Oncology Start: 06-25-2024 End: 06-25-2024 ambulatory 06/25/2024 9:30 AM EDT Infusion Elidarudolph Ireland [facility] Oncology [address] [place] [phone] Elida L Beka [facility] Oncology Start: 06-18-2024 End: 06-18-2024 ambulatory 06/18/2024 9:30 AM EDT Infusion Elida Ireland [facility] - [facility] Oncology [facility] [place] [address] Elida Ireland [facility] Start: 06-11-2024 End: 06-11-2024 ambulatory 06/11/2024 9:30 AM EDT Infusion Elida Ireland [facility] Oncology [address] [place] [phone] Elida Ireland [facility] On[facility] Start: 06-04-2024 End: 06-04-2024 ambulatory 06/04/2024 9:30 AM EDT Infusion Elida Ireland [facility] Medical Oncology [address] [place] [phone] Elida Ireland [facility] Oncology Start: 05-28-2024 End: 05-28-2024 ambulatory 05/28/2024 9:30 AM EDT Infusion Elida Ireland [facility] Oncology [address] [place] [phone] Elida Ireland [facility] - [facility] Oncology Start: 05-27-2024 End: 05-27-2024 Patient encounter procedure 05/27/2024 1:30 PM EDT Off ice Visit [facility] - [facility] [address] [place] [address] Fernie Clark, DO [address], [place] [address] [facility] - [facility] Start: 05-21-2024 End: 05-21-2024 ambulatory 05/21/2024 9:30 AM EDT Infusion Elida Ireland [facility] Oncology [address] [place] [phone] Elida Ireland [facility] On[facility] Start: 05-14-2024 End: 05-14-2024 ambulatory 05/14/2024 9:30 AM EDT Infusion Elida Ireland [facility] - Medical Oncology [address] [place] [address] [place] [address] Elida L Beka [facility] - Medical Oncology Start: 05-07-2024 End: 05-07-2024 ambulatory 05/07/2024 9:30 AM EDT Infusion Elida René Beka [facility] - Medical Oncology [address] [place] [address] Elida Ireland [facility] - Medical Oncology Start: 04-30-2024 End: 04-30-2024 ambulatory 04/30/2024 9:30 AM EDT Infusion Elida L Beka [facility] - Medical Oncology [address] [place] [phone] Elida Ireland [facility] - Medical Oncology Start: 04-23-2024 End: 04-23-2024 ambulatory 04/23/2024 9:30 AM EDT Infusion Elida René Beka [facility] - Medical Oncology [address] [place] [phone] Elida René Beka [facility] - Medical Oncology Start: 04-16-2024 End: 04-16-2024 ambulatory 04/16/2024 9:30 AM EDT Infusion Elida Ireland [facility] - Medical Oncology [address] [place] [phone] Elida Ireland [facility] - Medical Oncology Start: 04-09-2024 End: 04-09-2024 ambulatory 04/09/2024 9:30 AM EDT Infusion Elida Ireland [facility] - Medical Oncology [address] [place] [phone] Elida René Beka [facility] - Medical Oncology Start: 04-02-2024 End: 04-02-2024 ambulatory 04/02/2024 9:30 AM EDT Infusion Elida Ireland [facility] - Medical Oncology [address] [place] [phone] Elida Ireland [facility] - Medical Oncology Start: 03-26-2024 End: 03-26-2024 ambulatory 03/26/2024 9:30 AM EDT Infusion Elida Ireland [facility] - Medical Oncology [address] [place] [phone] Elida Ireland [facility] - Medical Oncology Start: 03-19-2024 End: 03-19-2024 ambulatory 03/19/2024 9:30 AM EDT Infusion Elida Ireland [facility] - Medical Oncology [address] [place] [phone] Elida Ireland [facility] - Medical Oncology Start: 03-05-2024 End: 03-05-2024 ambulatory 03/05/2024 9:30 AM EDT Infusion Elida Ireland [facility] - Medical Oncology [address] [place] [phone] Elida Ireland [facility] - Medical Oncology Start: 02-27-2024 End: 02-27-2024 ambulatory 02/27/2024 9:30 AM EDT Infusion Elida Ireland [facility] Medical Oncology [address] [place] [phone] Elida Ireland [facility] Medical Oncology Start: 02-25-2024 End: 02-25-2024 Patient encounter procedure 02/25/2024 2:45 PM EDT Off ice Visit [facility] [address] [place] [address] Fernie Clark, DO [address], [facility] [place] [address] [facility] Start: 02-20-2024 End: 02-20-2024 ambulatory 02/20/2024 9:30 AM EDT Infusion Elida Ireland [facility] - Medical Oncology [address] [place] [phone] Elida Ireland [facility] - Medical Oncology Start: 02-13-2024 End: 02-13-2024 ambulatory 02/13/2024 9:30 AM EDT Infusion Elida Ireland [facility] - Medical Oncology [address] [place] [phone] Elida Ireland [facility] - Medical Oncology Start: 02-06-2024 End: 02-06-2024 ambulatory 02/06/2024 9:30 AM EDT Infusion Elida Ireland [facility] - Medical Oncology [address] [place] [address] Elida Ireland [facility] - Medical Oncology Start: 01-30-2024 End: 01-30-2024 ambulatory 01/30/2024 9:30 AM EDT Infusion Elida Ireland [facility] - Medical Oncology [address] [place] [address] Elida Ireland [facility] - Medical Oncology Start: 01-23-2024 End: 01-23-2024 ambulatory 01/23/2024 9:30 AM EDT Infusion Elida Ireland [facility] - Medical Oncology [address] [place] [phone] Elida Ireland [facility] - Medical Oncology Start: 01-16-2024 End: 01-16-2024 ambulatory 01/16/2024 9:30 AM EST Infusion Elida Ireland [facility] - Medical Oncology [address] [place] [phone] Elida Ireland [facility] - Medical Oncology Start: 01-09-2024 End: 01-09-2024 ambulatory 01/09/2024 9:30 AM EST Infusion Elida Ireland [facility] - Medical Oncology [address] [place] [phone] Elida Ireland [facility] - Medical Oncology Start: 01-08-2024 End: 01-08-2024 Patient encounter procedure 01/08/2024 1:00 PM EST Off ice Visit [facility] [address] [place] [address] [facility] Start: 01-02-2024 End: 01-02-2024 ambulatory 01/02/2024 9:30 AM EST Infusion Elida Ireland [facility] - Medical Oncology [address] [place] [phone] Elida Ireland [facility] - Medical Oncology Start: 12-26-2023 End: 12-26-2023 ambulatory 12/26/2023 9:30 AM EST Infusion Elida Ireland [facility] - Medical Oncology [facility] [place] [address] Elida Ireland [facility] - Medical Oncology Start: 12-19-2023 End: 12-19-2023 ambulatory 12/19/2023 9:30 AM EST Infusion Elida Ireland [facility] - Medical Oncology [address] [place] [phone] Elida Ireland [facility] - Medical Oncology Start: 12-12-2023 Administration of varicella zoster vaccine Zoster (Shingles) Vaccine (1 of 2) [facility] Comment on above: Postponed from 03/12/2015 (Patient Refus ed) Start: 12-12-2023 Medicare Annual Wellness Visit Medicare Annual Wellness Visi t [employer] Start: 12-12-2023 End: 12-12-2023 ambulatory 12/12/2023 9:30 AM EST Infusion Elida Ireland [facility] - Medical Oncology [address] [place] [phone] Elida Ireland [facility] - Medical Oncology Start: 12-05-2023 End: 12-05-2023 ambulatory 12/05/2023 9:30 AM EST Infusion Elida Ireland [facility] - Medical Oncology [address] [place] [phone] Elida Ireland [facility] - Medical Oncology Start: 11-28-2023 End: 11-28-2023 ambulatory 11/28/2023 9:30 AM EST Infusion Elida Ireland [facility] - Medical Oncology [address] [place] [phone] Elida Ireland [facility] - Medical Oncology Start: 11-26-2023 End: 11-26-2023 Patient encounter procedure 11/26/2023 1:30 PM EST [facility] [address] [place] [address] Fernie Clark, DO [address] [facility] [place], [place] [address] [facility] - Family Medicine Start: 11-21-2023 End: 11-21-2023 ambulatory 11/21/2023 9:30 AM EST Infusion Elida Ireland [facility] - Medical Oncology [address] [place] [phone] Elida Ireland [facility] - Medical Oncology Start: 07-13-2023 COVID-19 Vaccine ( season) COVID-19 Vaccine ( season) [facility] [employer] [facility] Start: 03-12-2015 Administration of varicella zoster vaccine Zoster (Shingles) Vaccine (1 [facility] 2) [facility] Start: 1958 Adult BMI Follow Up Plan Adult BMI Follow Up Plan [facility] End: 05-27-2025 Bacteria identified in Urine by Culture Urine culture (clean catch) Microbiology Routine Dysuria 1 Occurrences starting 05/27/2024 until 05/27/2025 [employer] Work Phone: Comment on above: 1 Occurrences starting 05/27/2024 until 05/27/2025 End: 11-21-2024 Comprehensive metabolic 2000 panel - Serum or Plasma Comprehensive metabolic panel Lab Routine Essential hypertension 1 Occurrences starting 11/21/2023 until 11/21/2024 [employer]ppy Band[facility] Work Phone: Comment on above: 1 Occurrences starting 11/21/2023 until 11/21/2024 End: 09-04-2025 EMG EMG Neurology Routine Paresthesia of right lower extremity 1 Occurrences starting 09/04/2024 until 09/04/2025 [employer] Work Phone: Comment on above: 1 Occurrences starting 09/04/2024 until 09/04/2025 End: 09-04-2025 Esophagogastroduodenoscopy EGD GI Routine Ross's esophagus with dysplasia 1 Occurrences starting 09/04/2024 until 09/04/2025 [facility] Comment on above: 1 Occurrences starting 09/04/2024 until 09/04/2025 Esophagogastroduoden oscopy transoral diagnostic ESOPHAGOGASTRODUODENOSCOPY DIAGNOSTIC 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 [facility] End: 11-21-2024 Hemoglobin A1c/Hemoglobin.total in Blood Hemoglobin A1c Lab Routine Type 2 diabetes mellitus with stage 3b chronic kidney disease, with long-term current use of insulin ([facility]) 1 Occurrences starting 11/21/2023 until 11/21/2024 [facility] Comment on above: 1 Occurrences starting 11/21/2023 until 11/21/2024 End: 11-21-2024 Lipid panel Lipid panel Lab Routine Mixe d hyperlipidemia 1 Occurrences starting 11/21/2023 until 11/21/2024 [facility] Comment on above: 1 Occurrences starting 11/21/2023 until 11/21/2024 End: 11-18-2025 Magnesium [Mass/volume] in Serum or Plasma Magnesium Lab Routine Hypomagnesemia weekly for 52 Occurrences starting 11/18/2024 until 11/18/2025 [employer] Work Phone: Comment on above: weekly for 52 Occurrences starting 11/18 until 11/18/2025 End: 11-19-2024 Magnesium [Mass/volume] in Serum or Plasma Magnesium Lab STAT Hypomagnesemia weekly for 52 Occurrences starting 11/19/2023 until 11/19/2024 Trippy Bandz [facility] Work Phone: Comment on above: weekly for 52 Occurrences starting 11/19 until 11/19/2024 End: 11-21-2024 Microalbumin - Albumin: Creatinine Urine Ratio Microalbumin - Albumin: Creatinine Urine Ratio Lab Routine Type 2 diabetes mellitus with stage 3b chronic kidney disease, with long-term current use of insulin ([facility]) 1 Occurrences starting 11/21/2023 until 11/21/2024 [facility] Comment on above: 1 Occurrences starting 11/21/2023 until 11/21/2024 End: 01-16-2025 Potassium [Moles/volume] in Serum or Plasma Potassium Lab Routine 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 ([facility]) 1 Occurrences starting 01/17/2024 until 01/16/2025 [facility] Work Phone: Comment on above: 1 Occurrences starting 01/17/2024 until 01/16/2025 Renal function 2000 panel - Serum or Plasma [facility] Immunizations Immunization Date Immunization Notes Care Provider Yamil nieves 08-31-2021 Influenza, High-dose , Quadrivalent Fernie Furlong DO Work Phone: [facility] 02-01-2021 COVID-19, mRNA, LNP- S, PF, 30mcg/0.3mL Dose Fernie Furlong DO Work Phone: [facility] 01-10-2021 COVID-19, mRNA, LNP- S, PF, 30mcg/0.3mL Dose Fernie Furlong DO Work Phone: [facility] 07-29-2020 influenza, high dose seasonal, preservative-free Fernie Furlong DO Work Phone: [facility] 09-03-2019 influenza, high dose seasonal, preservative-free Fernie Furlong DO Work Phone: [facility] 09-30-2018 tetanus toxoid, redu kiran diphtheria toxoid, and acellular pertussis vaccine, adsorbed Fernie Furlong DO Work Phone: [facility] 09-19-2018 influenza, high dose seasonal, preservative-free Fernie Furlong DO Work Phone: [facility] 09-03-2017 influenza virus vacc ine, unspecified formulation Fernie Furlong DO Work Phone: [facility] 07-27-2015 influenza, seasonal, injectable, preservative free Fernie Furlong DO Work Phone: [facility] 07-27-2015 seasonal influenza, intradermal, preservative free Fernie Furlong DO Work Phone: [facility] 01-15-2015 zoster vaccine, live Fernie Furlong DO Work Phone: [facility] [employer] [facility] 01-15-2015 zoster vaccine, unspecified formulation Fernie Clark DO Work Phone: [facility] [employer] [facility] 07-16-2014 influenza, seasonal, injectable Fernie Clark DO Work Phone: [facility] 10-20-2013 pneumococcal conjuga te vaccine, 13 valent Fernie Clark DO Work Phone: [facility] 08-30-2011 tetanus and diphther ia toxoids, not adsorbed, for adult use Fernie Clark DO Work Phone: [facility] 08-20-2008 pneumococcal polysaccharide vaccine, 23 valent Fernie Clark DO Work Phone: [facility] Payers Date Payer Category Payer Unknown 11-12-2015 Managed Care Other (unspecified) [facility] [id number] 11-12-2015 Private Health Insurance [facility] AARP SUPPLEMENT [id number] 11/12/2015-Present [phone] [address] [place] [address] [id number] 09-12-2007 Medicare [id number] 11-12-1959 Medicare [id number] 11-12-1959 Unknown [id number] 1942 Unknown [id number] 2.16.840.1.947224.3.579.2 .647 1942 Unknown [id number] 2.16.840.1.218719.3.579.2 .593 1942 Unknown [id number] 2.16.840.1.912546.3.579.2 .593 1942 Unknown [id number] 2.16.840.1.664067.3.579.2 .593 1942 Unknown [id number] 2.16.840.1.655908.3.579.2 .593 1942 Unknown [id number] 2.16.840.1.097937.3.579.2 .593 1942 Unknown [id number] 2.16.840.1.694589.3.579.2 .593 1942 Unknown [id number] 2.16.840.1.501019.3.579.2 .593 1942 Unknown [id number] 2.16.840.1.158274.3.579.2 .593 1942 Unknown [id number] 2.16.840.1.415235.3.579.2 .593 1942 Unknown [id number] 2.16.840.1.004235.3.579.2 .593 1942 Unknown [id number] 2.16.840.1.925764.3.579.2 .593 1942 Unknown [id number] 2.16.840.1.205491.3.579.2 .1286 1942 Unknown [id number] 2.16.840.1.436629.3.579.2 .1286 1942 Unknown [id number] 2.16.840.1.730702.3.579.2 .1286 1942 Unknown [id number] 2.16.840.1.170869.3.579.2 .1286 1942 Unknown [id number] 2.16.840.1.570654.3.579.2 .1285 1942 Unknown [id number] 2.16.840.1.973461.3.579.2 .128 1942 Unknown [id number] 2.16.840.1.911992.3.579.2 .1285 1942 Unknown [id number] 2.16.840.1.869989.3.579.2 .1942 Unknown [id number] 2.16.840.1.334798.3.579.2 .1942 Unknown [id number] 2.16.840.1.161820.3.579.2 .1942 Unknown [id number] 2.16.840.1.280713.3.579.2 .1942 Unknown [id number] 2.16.840.1.333922.3.579.2 .1285 1942 Unknown [id number] 2.16.840.1.534165.3.579.2 .1285 1942 Unknown [id number] 2.16.840.1.449189.3.579.2 .1285 1942 Unknown [id number] 2.16.840.1.095731.3.579.2 .1285 1942 Unknown [id number] 2.16.840.1.857282.3.579.2 .1285 1942 Unknown [id number] 2.16.840.1.131792.3.579.2 .1285 1942 Unknown [id number] 2.16.840.1.452745.3.579.2 .1285 1942 Unknown [id number] 2.16.840.1.393841.3.579.2 .12823-1942 Unknown [id number] 2.16.840.1.958377.3.579.2 .1285 1942 Unknown [id number] 2.16.840.1.307492.3.579.2 .1285 1942 Unknown [id number] 2.16.840.1.117424.3.579.2 .1285 1942 Unknown [id number] 2.16840.1.057205.3.579.2 .1285 1942 Unknown [id number] 2.840.1.054836.3.579.2 .1285 1942 Unknown [id number] 2.840.1.237934.3.579.2 .1285 1942 Unknown [id number] 2.840.1.681690.3.579.2 .1285 1942 Unknown [id number] 2.840.1.540080.3.579.2 .1285 1942 Unknown [id number] 2.840.1.366075.3.579.2 .1285 1942 Unknown [id number] 2.840.1.430926.3.579.2 .1285 1942 Unknown [id number] 2.840.1.623193.3.579.2 .1285 1942 Unknown [id number] 2.16840.1.441246.3.579.2 .1285 1942 Unknown [id number] 2.16840.1.392517.3.579.2 .1285 1942 Unknown [id number] 2.16840.1.847028.3.579.2 .1285 1942 Unknown [id number] 2.16840.1.669383.3.579.2 .1285 1942 Unknown [id number] 2.16.840.1.932602.3.579.2 .1285 1942 Unknown [id number] 2.16.840.1.363989.3.579.2 .1285 1942 Unknown [id number] 2.16.840.1.607789.3.579.2 .1285 1942 Unknown [id number] 2.840.1.473583.3.579.2 .1285 1942 Unknown [id number] 2.840.1.471574.3.579.2 .1285 1942 Unknown [id number] 2.840.1.188330.3.579.2 .1285 1942 Unknown [id number] 2.840.1.542656.3.579.2 .1285 1942 Unknown [id number] 2.840.1.992935.3.579.2 .1285 1942 Unknown [id number] 2.840.1.939378.3.579.2 .1285 1942 Unknown [id number] 2.840.1.462810.3.579.2 .1285 1942 Unknown [id number] 2.840.1.273337.3.579.2 .1285 1942 Unknown [id number] 2.840.1.340155.3.579.2 .1285 1942 Unknown [id number] 2.16840.1.487564.3.579.2 .1285 1942 Unknown [id number] 2.16840.1.539537.3.579.2 .1285 1942 Unknown [id number] 2.840.1.308134.3.579.2 .1285 1942 Unknown [id number] 2.16.840.1.660629.3.579.2 .1285 1942 Unknown [id number] 2.16.840.1.041040.3.579.2 .1285 1942 Unknown [id number] 2.16.840.1.226472.3.579.2 .1285 1942 Unknown [id number] 2.16.840.1.304683.3.579.2 .1285 1942 Unknown [id number] 2.16.840.1.667275.3.579.2 .1285 1942 Unknown [id number] 2.16840.1.968100.3.579.2 .1285 1942 Unknown [id number] 2.840.1.697086.3.579.2 .1285 1942 Unknown [id number] 2.16.840.1.006279.3.579.2 .1285 1942 Unknown [id number] 2..840.1.225784.3.579.2 .1285 1942 Unknown [id number] 2.16.840.1.884814.3.579.2 .1285 1942 Unknown [id number] 2.16.840.1.056985.3.579.2 .1285 1942 Unknown [id number] 2.16.840.1.803967.3.579.2 .1285 1942 Unknown [id number] 2.16.840.1.546943.3.579.2 .1285 1942 Unknown [id number] 2.16.840.1.808135.3.579.2 .1285 1942 Unknown [id number] 2.16.840.1.228130.3.579.2 .1285 1942 Unknown [id number] 2.16.840.1.402299.3.579.2 .128 1942 Unknown [id number] 2.16.840.1.354743.3.579.2 .1285 1942 Unknown [id number] 2.16.840.1.805111.3.579.2 .1285 1942 Unknown [id number] 2.16.840.1.348095.3.579.2 .1285 1942 Unknown [id number] 2.16.840.1.724753.3.579.2 .1285 1942 Unknown [id number] 2.16.840.1.660806.3.579.2 .1285 1942 Unknown [id number] 2.16.840.1.577609.3.579.2 .1285 1942 Unknown [id number] 2.16840.1.826401.3.579.2 .1285 1942 Unknown [id number] 2.16.840.1.164723.3.579.2 .1285 1942 Unknown [id number] 2.16.840.1.736322.3.579.2 .1285 1942 Unknown [id number] 2.16.840.1.044542.3.579.2 .1285 1942 Unknown [id number] 2.16.840.1.094280.3.579.2 .1285 1942 Unknown [id number] 2.16.840.1.767691.3.579.2 .1285 1942 Unknown [id number] 2.16.840.1.059902.3.579.2 .1285 1942 Unknown [id number] 2.16.840.1.956744.3.579.2 .1285 1942 Unknown [id number] 2.16.840.1.016804.3.579.2 .1285 1942 Unknown [id number] 2.16.840.1.178142.3.579.2 .1285 1942 Unknown [id number] 2.16.840.1.728513.3.579.2 .1285 1942 Unknown [id number] 2.16.840.1.970364.3.579.2 .1285 1942 Unknown [id number] 2.16.840.1.635995.3.579.2 .1285 1942 Unknown [id number] 2.16.840.1.934353.3.579.2 .1285 1942 Unknown [id number] 2.16.840.1.433133.3.579.2 .1285 1942 Unknown [id number] 2.16.840.1.876277.3.579.2 .1285 1942 Unknown [id number] 2.16.840.1.161527.3.579.2 .1285 1942 Unknown [id number] 2.16.840.1.657522.3.579.2 .1285 1942 Unknown [id number] 2.16.840.1.031377.3.579.2 .1285 1942 Unknown [id number] 2.16840.1.117101.3.579.2 .1285 1942 Unknown [id number] 2.16.840.1.210660.3.579.2 .1285 1942 Unknown [id number] 2.16.840.1.809994.3.579.2 .1285 1942 Unknown [id number] 2.16.840.1.114738.3.579.2 .1285 1942 Unknown [id number] 2.16.840.1.352731.3.579.2 .1285 1942 Unknown [id number] 2.16.840.1.974216.3.579.2 .1286 1942 Unknown [id number] 2.16.840.1.833073.3.579.2 .1286 1942 Unknown [id number] 2.16.840.1.699963.3.579.2 .1286 1942 Unknown [id number] 2.16.840.1.948313.3.579.2 .1286 1942 Unknown [id number] 2.16.840.1.697554.3.579.2 .1286 1942 Unknown [id number] 2.16.840.1.555418.3.579.2 .1286 1942 Unknown [id number] 2.16.840.1.770357.3.579.2 .1286 1942 Unknown [id number] 2.16.840.1.231986.3.579.2 .1286 1942 Unknown [id number] 2.16.840.1.859325.3.579.2 .1286 1942 Unknown [id number] 2.16.840.1.365512.3.579.2 .1286 Private Health Insurance [facility] [id number] Self-pay Self Pay [id number] Social History Date Type Detail Facility Unknown if ever smoked Spontaneously Other Start: 01-08-2024 End: 08-06-2024 [facility] Start: 1940 Sex Assigned At Female F [facility] Start: 05-04-2017 End: 05-01-2024 Tobacco smoking status NHIS Never smoked tobacco (finding) [facility] Start: 05-04-2017 Tobacco use and exposure Smokeless tobacco non-user [facility] Start: 09-26-2024 End: 09-30-2024 Alcoholic beverage intake Ex-drinker (finding) [facility] Start: 01-08-2024 End: 08-06-2024 History of Social function [facility] Has the [employer], or [employer] threatened to shut off services in your home in past 12Mo No [facility] Are you now , , , , never or living with a partner? [facility] How often to you hav e a drink containing alcohol? Never [facility] How many standard drinks containing alcohol do you have on a typical day? Patient does not drink [facility] Do you feel stress - tense, restless, nervous, or anxious, or unable to sleep at night because your mind is troubled all the time - these days [OSQ] Not at all [facility] Start: 1940 Sex assigned at Not on file P [facility] Start: 06-17-2015 End: 11-21-2024 Sex Female (finding) [facility] Start: 10-18-2023 End: 09-10-2024 Alcohol intake Current drinker of alcohol (finding) [facility] Medical Equipment Procedure Code Equipment Code Equipment Origin al Text Equipment Identifier Dates 1 strip by other route in the morning and 1 strip before bedtime. [id number] Start: 08-30-2023 End: 11-18-2024 1 Lancet. by miscellaneous route in the morning and 1 Lancet. before bedtime. [id number] Start: 08-30-2023 USE 1 NEEDLE THR EE TIMES A DAY [id number] Start: 07-17-2024 1 strip by other route in the morning and 1 strip before bedtime. [id number] Start: 11-18-2024 USE 1 NEEDLE THR EE TIMES A DAY [id number] Start: 07-23-2023 End: 07-17-2024 Clinical Notes 12-27-2021 [...] cell and transferred documented in this encounter [facility] 01-03-2025 Telephone encounter Note Contract: 198 Shan Nair re not responding appropriately, not registering well Relayed info to Dr Clark on cell and transferred [facility] 01-03-2025 Miscellaneous Notes Contract: 198 Shan eduardo Reyes RE Notifying Doctor of Status Condition not eating or drinking high blood pressure and sleeping more than normal Contract: [address] Clark and Left message to call [facility] Dr. Clark returned page and was connected to the caller. documented in this encounter [facility] 01-03-2025 Telephone encounter Note Contract: 198 Shan eduardo Reyes RE Notifying Doctor of Status Condition not eating or drinking high blood pressure and sleeping more than normal [facility] 01-03-2025 Telephone encounter Note Contract: [address] Clark and Left message to call [facility] 01-03-[address] Clark returned page and was connected to the caller. [facility] 12-26-2024 History of Presen t illness Narrative Images from the original note were not included. Patient Name: Adore Wolff Date of : 1940 Date of Service: 12/26/2024 [place] [facility] [place] of Visit: Skilled Visit Subjective Adore Wolff is a 84 y.o. female [facility]. Adore has several [...] Fernie Clark DO documented in this encounter [facility] 12-19-2024 History of Presen t illness Narrative Patient Name: Adore Wolff Date of : 1940 Date of Service: 12/19/2024 Facility: [facility] Type of Visit: Skilled Visit Subjective Adore Wolff is a 84 y.o. female [facility] today at [facility] facility for therapy visit. Adore is having [...] Fernie Clark DO documented in this encounter [facility] 12-18-2024 Miscellaneous Notes NEW EMG / NCV ORDER 1st attempt: [facility] contacted patient's spouse and informed him that we have received patient's EMG order. Spouse stated that he is not interested in scheduling at this time, as the patient is currently in a rehab facility but will call back if anything should change. Vamper reassured him that their referral is valid for up to one year should he change his mind - he stated understanding. documented in this encounter [facility] 12-18-2024 Telephone encounter Note NEW EMG / NCV ORDER 1st attempt: Vamper contacted patient's spouse and informed him that we have received patient's EMG order. Spouse stated that he is not interested in scheduling at this time, as the patient is currently in a rehab facility but will call back if anything should change. Vamper reassured him that their referral is valid for up to one year should he change his mind - he stated understanding. [facility] 12-02-2024 Miscellaneous Notes Fanny the nurse at the [facility] called and stated you were in yesterday evening and stated they had aske for a refill for tramodol and the lyrica be sent to [facility]. Also you had discontinued the trazadone [...] in a prescription to [facility] in [place]. If it is a different [facility] then I need to resend it somewhere else Spoke with Fanny and she will follow up with Pharmacy documented in this encounter [facility] 12-02-2024 Telephone encounter Note Fanny the nurse at the [facility] called and stated you were in yesterday evening and stated they had aske for a refill for tramodol and the lyrica be sent to [facility]. Also you had discontinued the trazadone and never put an order in. Do you still want this D/C? If so did you want something in replace of it? Also she is very lethargic today. [facility] Telephone encounter Note It could not find any order sheets so I gave a verbal order to stop the trazodone to the nurse. I also asked her if she needed any of her controlled substances and she said no. I did send in a prescription to [facility] in [place]. If it is a different [facility] then I need to [facility] Telephone encounter Note Spoke with Fanny and she will follow up [facility]24 Miscellaneous Notes Contract: [id number] [facility] called for orders to have patient sent to hospital for evaluation [id number] I called Dr Clark & transferred him to Joanie Pelayo [place] documented in this encounter [facility] 12-01-2024 Telephone encounter Note Contract: [id number] [facility] called for orders to have patient sent to hospital for evaluation [facility] 12-01-2024 Telephone encounter Note [id number] [facility] Dr [facility] 11-24-2024 History of Presen t illness Narrative Patient's spouse called [facility] nurse this morning with concerns [...] possible. Please advise. documented in this encounter [facility] 11-24-2024 Miscellaneous Notes Patient's spouse called [...] be septic Notified documented in this encounter [facility] 11-24-2024 Telephone encounter Note Patient's spouse [...] today by PCP if possible. Please advise. [facility] 11-24-2024 Telephone encounter Note She has altered mental status she should go to the emergency room. She could be septic [facility] 11-24-2024 Telephone encounter Note Notified [facility] 11-17-2024 History of Presen t illness Narrative Diabetic Supplies: After numerous attempts by and JARON we have been unable to get in touch with [facility] regarding patient diabetes supplies. Patient is currently out of test strips and would like order sent to new DME supplier. Could you please fax order to [facility] for [employer] meter and strips. Fax number: [phone]. [facility] Chronic Care Nurse [employer] [phone] documented in this encounter [facility] 11-17-2024 Miscellaneous Notes Diabetic Supplies: After numerous attempts by and JARON we have been unable to get in touch with [facility] regarding patient diabetes supplies. Patient is currently out of test strips and would like order sent to new DME supplier. Could you please fax order to [facility] for [employer] meter and strips. Fax number: [phone]. [facility] Chronic Care Nurse [employer] [phone] Please fax to [facility]. Prescriptions were printed documented in this encounter [facility] 11-17-2024 Telephone encounter Note Diabetic Supplies: After numerous attempts by and JARON we have been unable to get in touch with [facility] regarding patient diabetes supplies. Patient is currently out of test strips and would like order sent to new DME supplier. Could you please fax order to [facility] for [employer] meter and strips. Fax number: [phone]. [facility] Primary [facility] Chronic Care Nurse [employer] [phone] [facility] 11-17-2024 Telephone encounter Note Please fax to [facility]. Prescriptions were printed [facility] 11-04-2024 History of Presen t illness Narrative Patient is here for 2g IV magnesium as scheduled. Mg level 1.7. PIV initiated, blood return noted, flushes with ease. NS started at KVO. Magnesium infused over 2 hours. Line flushed. Pt tolerated well. PIV dc'd, pressure dressing applied. Pt dc'd in stable ambulatory condition with spouse. documented in this encounter [facility] 10-20-2024 History of Presen t illness Narrative Patient mag level is 1.9, will not need magnesium infusion this week. Patient made aware and will continue on with next week's lab draw. documented in this encounter [facility] 10-07-2024 Miscellaneous Notes Call patient and see if she requested this. It was stopped in the summertime documented in this encounter [facility] 10-07-2024 Telephone encounter Note Call patient and see if she requested this. It was stopped in the summertime [facility] 10-07-2024 History of Presen t illness Narrative Patient is here for 2g IV magnesium as scheduled. Mg level 1.7. PIV initiated, blood return noted, flushes with ease. NS started at KVO. Magnesium infused over 2 hours. Line flushed. Pt tolerated well. PIV dc'd, pressure dressing applied. Pt dc'd in stable ambulatory condition with spouse. documented in this encounter [facility] 10-01-2024 History of Presen t illness [...] updated treatment calendar. documented in this encounter [facility] 09-10-2024 Miscellaneous Notes NEW EMG/NCV ORDER First attempt- Left Voicemail Dx: Paresthesia of right lower extremity [R20.2]/ Referred by: Fernie Clark DO Referred to: Please schedule patient in the next available appointment with provider. Patient returned call and patient was scheduled for next available EMG in [place]. Patient was placed on waitlist. Appointment: 12/15/2024 at 12:30pm with Dr. Urbano documented in this encounter [facility] 09-10-2024 Telephone encounter Note NEW EMG/NCV ORDER First attempt- Left Voicemail Dx: Paresthesia of right lower extremity [R20.2]/ Referred by: Fernie Clark DO Referred to: Please schedule patient in the next available appointment with provider. [facility] 09-10-2024 Telephone encounter Note Patient returned call and patient was scheduled for next available EMG in [place]. Patient was placed on waitlist. Appointment: 12/15/2024 at 12:30pm with Dr. Urbano [facility] 09-10-2024 History of Presen t illness Narrative Pt here for 2g IV magnesium. Mg level 1.7. PIV initiated to RFA. Brisk blood return verified, and flushes with ease. Magnesium infused over 2 hours without incident. Pt tolerated well. Flushed with saline and PIV dc'd. Pt dc'd in stable ambulatory condition. documented in this encounter [facility] 09-01-2024 History of Presen t illness Narrative Pt magnesium level 1.8. called to notify patient to see if shed like to notify dr medina office to see if she should still get mg infusion since she's WNL. Pt requests to take the week off and recheck mg level in one week. documented in this encounter [facility] 08-27-2024 History of Presen t illness Narrative Patient is here for 2g IV magnesium as scheduled. Mg level 1.6. PIV initiated, blood return noted, flushes with ease. NS started at KVO. Magnesium infused over 2 hours. Line flushed. Pt tolerated well. PIV dc'd, pressure dressing applied. Pt dc'd in stable ambulatory condition with spouse. documented in this encounter [facility] 08-22-2024 History of Presen t illness Narrative When was the last Refill? 05/27/24 Is this medication Historical? [place] of preferred Pharmacy? [facility] When was the last OV with provider? 05/27/24 When is the next scheduled visit? 11/27/24 documented in this encounter [facility] 08-20-2024 History of Presen t illness Narrative Pt here for 2g IV magnesium. Mg level 1.6. PIV initiated to RFA. Brisk blood return noted, flushes with ease. Magnesium infused over 2 hours. Line flushed. Pt tolerated well. PIV dc'd. Pressure dressing applied. Dc'd in stable ambulatory condition. documented in this encounter [facility] 08-13-2024 History of Presen t illness Narrative Pt here for 2g IV magnesium per pt reqeust. Mg level 1.6. PIV initiated to LFA. Brisk blood return noted, flushes with ease. NS started at KVO. Magnesium infused over 2 hours. Pt tolerated well. PIV dc'd. Pressure dressing applied. Dc'd in stable ambulatory condition. documented in this encounter [facility] 08-06-2024 History of Presen t illness Narrative Pt here for 2g IV magnesium per pt reqeust. Mg level 1.5. PIV initiated to RFA. Brisk blood return noted, flushes with ease. NS started at KVO. Magnesium infused over 2 hours. Pt tolerated well. PIV dc'd. Pressure dressing applied. Dc'd in stable ambulatory condition. documented in this encounter [facility] 07-30-2024 History of Presen t illness Narrative Patient presents for Magnesium infusion. Mg 1.5 drawn 07/28/2024 Patient requests 2g of Magnesium today. PIV initiated, brisk blood return noted. Flushed with NS. Magnesium infusing as ordered over 2 hours. Patient tolerated infusion well. PIV discontinued, gauze secured with coban in place. Discharged in stable condition. documented in this encounter [facility] 07-23-2024 History of Presen t illness Narrative Patient presents for Magnesium infusion. Mg 1.6 drawn 07/21/2024 Patient will received 2g of Magnesium today per orders. PIV initiated, brisk blood return noted. Flushed with NS. Magnesium infusing as ordered over 2 hours. Patient tolerated infusion well. PIV discontinued, gauze secured with coban in place. Discharged in stable condition. documented in this encounter [facility] 07-16-2024 History of Presen t illness Narrative Pt here for 4gm IV magnesium for mg level 1.5. PIV initiated to RFA. Brisk blood return noted, flushes with ease. NS started at KVO. 4g IV magnesium infused over 4 hours without incident. Line flushed. PIV removed, pressure dressing applied. Dc'd in stable ambulatory condition. documented in this encounter [facility] 07-09-2024 History of Presen t illness Narrative Pt here for 2gm IV magnesium for mg level 1.6. PIV initiated to RFA. Brisk blood return noted, flushes with ease. NS started at KVO. 2g IV magnesium infused over 2 hours without incident. Line flushed. PIV removed, pressure dressing applied. Dc'd in stable ambulatory condition. documented in this encounter [facility] 07-02-2024 History of Presen t illness Narrative Pt here for 2gm IV magnesium for mg level 1.6. PIV initiated to RFA. Brisk blood return noted, flushes with ease. NS started at KVO. 2g IV magnesium infused over 2 hours without incident. Line flushed. PIV removed, pressure dressing applied. Dc'd in stable ambulatory condition. documented in this encounter [facility] 06-25-2024 History of Presen t illness Narrative Pt here for 2gm IV magnesium for mg level 1.7. PIV initiated to RFA. Brisk blood return noted, flushes with ease. NS started at KVO. 2g IV magnesium infused over 2 hours without incident. Line flushed. PIV removed, pressure dressing applied. Dc'd in stable ambulatory condition. documented in this encounter [facility] 06-18-2024 History of Presen t illness Narrative Patient is here for 2g IV magnesium as scheduled. Mg level 1.7. PIV initiated, blood return noted, flushes with ease. NS started at KVO. Magnesium infused over 2 hours. Line flushed. Pt tolerated well. PIV dc'd, pressure dressing applied. Pt dc'd in stable ambulatory condition with spouse. documented in this encounter [facility] 06-11-2024 History of Presen t illness Narrative [...] condition with spouse. documented in this encounter [facility] 05-29-2024 Miscellaneous Notes ----- Message from [...] mg Patient notified documented in this encounter [facility] 05-29-2024 Telephone encounter Note ----- Message [...] bring us a new sample for testing. [facility] 05-29-2024 Telephone encounter Note Adore will come in tomorrow to provide a repeat urine sample in office. She also was wondering about her low dose asprin. She had discontinued it about 1.5 months ago due to frequent nose bleeds. The nose bleeds are gone and wonders if she should start her asprin again. [facility] 05-29-2024 Telephone encounter Note Okay great! Yes she can restart aspirin 81 mg [facility] 05-29-2024 Telephone encounter Note Patient notified [facility] 05-28-2024 History of Presen t illness Narrative Patient presents for Magnesium infusion. Mg 1.6 drawn 05/26/2024 Patient will received 2g of Magnesium today per orders. PIV initiated, brisk blood return noted. Flushed with NS. Magnesium infusing as ordered over 2 hours. Patient tolerated infusion well. PIV discontinued, gauze secured with coban in place. Discharged in stable condition. documented in this encounter [facility] 05-27-2024 History of Presen t illness Narrative Subjective Patient ID: Adore Wolff is a 83 y.o. female. Adore presents today for diabetic recheck. She is taking her medications and not having any side effects. She has had it upper respiratory infection for a couple weeks it is better but she still has a nagging cough. She tried icir-ivj-rouiisv cough medicine but it made it worse. [...] Exam Vitals reviewed. Exam conducted with a step finisher present (Ifeanyi Johnson MS III). Constitutional: General: [...] stage 4 chronic kidney disease and hypertension ([facility]) - POCT Hemoglobin A1c - POCT urinalysis dipstick only A1c wsa 7.1% Continue current regimen Dysuria - Urine culture (clean catch); Future Urine was abnormal so will check C&S. Acute rhinitis Will treat with loratadine 10 mg daily Morbid obesity ([facility]) She is morbidly obese. She would benefit from wt loss. Incontinence of feces with fecal urgency Recommended to stop reglan and try fiber supplement to give more bulk to stool.. Other orders - loratadine (CLARITIN) 10 mg tablet; Take 1 tablet (10 mg total) by mouth daily as needed for allergies. documented in this encounter [facility] 05-21-2024 History of Presen t illness Narrative Pt here for 2g IV magnesium for mg level of 1.7. PIV initiated to RFA. Brisk blood return noted, flushes with ease. NS started at KVO. Magnesium infused over 2 hours. Pt tolerated well. Line flushed. PIV dc'd. Pressure dressing applied. Dc'd in stable ambulatory condition. documented in this encounter [facility] 05-14-2024 History of Presen t illness Narrative Pt here for 2g IV magnesium for mg level 1.6. PIV initiated to RFA. Brisk blood return noted, flushes with ease. NS started at KVO. Magnesium infused over 2 hours. Pt tolerated well. PIV dc'd. Pressure dressing applied. Dc'd in stable ambulatory condition with spouse. documented in this encounter [facility] 05-07-2024 History of Presen t illness Narrative Patient is here for 4g IV magnesium as scheduled. Mg level 1.4. PIV initiated, blood return noted, flushes with ease. NS started at KVO. Magnesium infused over 2 hours. Line flushed. Pt tolerated well. PIV dc'd, pressure dressing applied. Pt dc'd in stable ambulatory condition with spouse. documented in this encounter [facility] 04-30-2024 History of Presen t illness [...] in stable condition. documented in this encounter [facility] 04-23-2024 History of Presen t illness Narrative Pt here for 4g IV magnesium for mg level of 1.4. PIV initiated to RFA. Brisk blood return noted, flushes with ease. NS started at KVO. Magnesium infused over 4 hours as ordered. Pt tolerated well. Line flushed. PIV dc'd, pressure dressing applied. Pt dc'd in stable condition. documented in this encounter [facility] 04-16-2024 History of Presen t illness Narrative Pt here for 2g IV magnesium as scheduled. Mg level 1.6. PIV initiated to RFA. Brisk blood return noted, flushes with ease. NS started at KVO. Magnesium infused over 2 hours. Pt tolerated well. PIV dc'd pressure dressing applied. Pt dc'd in stable ambulatory condition. V/u of future appointments. documented in this encounter [facility] 04-09-2024 History of Presen t illness [...] in stable condition. documented in this encounter [facility] 04-02-2024 History of Presen t illness Narrative Pt here for IV magnesium as scheduled. Mg level 1.7. PIV initiated to RFA. Blood return verified. Flushes with ease. NS started at KVO. 2g magnesium infused over 2 hours. Pt tolerated well. PIV dc'd. Pressure dressing applied. Pt dc'd in stable ambulatory condition. documented in this encounter [facility] 03-26-2024 History of Presen t illness Narrative Pt here for IV magnesium as scheduled for mg level of 1.6. PIV initiated to RFA. Brisk blood return noted, flushes with ease. NS started at KVO. Magnesium infused over 2 hours. Pt tolerated well. Line flushed. PIV dc'd- pressure dressing applied. Pt dc'd in stable ambulatory condition. documented in this encounter [facility] 03-19-2024 History of Presen t illness Narrative Pt here for IV magnesium for mg level 1.6. PIV initiated to RFA after several attempts. Brisk blood return noted, flushes with ease. NS started at KVO. Magnesium infused over 2 hours. Pt tolerated well. PIV dc'd- pressure dressing applied. Pt dc'd in stable ambulatory condition. V/u of future appts. documented in this encounter [facility] 03-12-2024 History of Presen t illness Narrative Pt here for Mg infusion. Mg 1.6, 2GM Mg indicated per order. PIV initiated to RFA, brisk blood return noted, flushes without difficulty. 2gm Mg infused over 2 hours, pt tolerated well. PIV discontinued, pressure dressing applied. Calendar provided, pt discharged ambulatory in stable condition. documented in this encounter [facility] 02-25-2024 History of Presen t illness Narrative Subjective Patient ID: Adore Wolff is a 83 y.o. female. Adore presents for a [id number] visit to try to get pads for [...] Exam Vitals reviewed. Exam conducted with a step finisher present (). Constitutional: Appearance: She is morbidly [...] make a referral. documented in this encounter [facility] 02-25-2024 History of Presen t illness Narrative Patient and were updated on normal magnesium level of 1.9. She is still very bruised on her arms and wishes to continue to hold infusions at this time since level is normal to allow her arms/veins time to be less bruised. She will continue to have weekly lab checks completed. documented in this encounter [facility] 02-20-2024 History of Presen t illness Narrative Received call back from Dr. Munoz's office. Instructed to hold magnesium infusions at this time. Will update patient and have pt continue to have labs checked to monitor. documented in this encounter [facility] 02-19-2024 History of Presen t illness Narrative Pt magnesium level 1.9. called to notify patient and pt states her arms are still very bruised up from multiple IV attempts. Pt request to skip infusion this week to give her veins/arms a break since her mg level is wnl. Pt will recheck lab next week. documented in this encounter [facility] 02-13-2024 History of Presen t illness [...] stable ambulatory condition. documented in this encounter [facility] 02-06-2024 History of Presen t illness Narrative Pt here for 2g IV magnesium as scheduled for mg level 1.8. Tolerating infusions well. PIV initiated to RFA. Brisk blood return noted, flushes with ease. NS started at KVO. Magnesium infused over 2 hours. Pt tolerated well. PIV dc'd, pressure dressing applied. Pt dc'd in stable ambulatory condition. documented in this encounter [facility] 01-30-2024 History of Presen t illness Narrative Patient is here for 2g IV magnesium as scheduled. Mg level 1.8. PIV initiated, blood return noted, flushes with ease. NS started at KVO. Magnesium infused over 2 hours. Line flushed. Pt tolerated well. PIV dc'd, pressure dressing applied. Pt dc'd in stable ambulatory condition with spouse. documented in this encounter [facility] 01-23-2024 History of Presen t illness Narrative Patient is here for 2g IV magnesium as scheduled. Mg level 1.7. PIV initiated on second attempt, blood return noted, flushes with ease. NS started at KVO. Magnesium infused over 2 hours. Line flushed. Pt tolerated well. PIV dc'd, pressure dressing applied. Pt dc'd in stable ambulatory condition with spouse. documented in this encounter [facility] 01-16-2024 History of Presen t illness [...] of upcoming appointments. documented in this encounter [facility] 01-09-2024 History of Presen t illness Narrative Pt here for 2g IV magnesium for mg level of 1.7. Tolerating infusions well. PIV initiated to RFA. Brisk blood return, flushes with ease. NS started at KVO. Magnesium infused over 2 hours. Pt tolerated well. PIV flushed and dc'd. Pressure dressing applied. Dc'd in stable condition. documented in this encounter [facility] 01-08-2024 History of Presen t illness [...] Do you have a durable power of research attorney?: Yes Cognitive Screening Do you have [...] year (around 01/08/2025). documented in this encounter [facility] 01-02-2024 History of Presen t illness Narrative Patient is here for 2g IV magnesium as scheduled. Mg level 1.7. PIV initiated on third attempt, blood return noted, flushes with ease. NS started at KVO. Magnesium infused over 2 hours. Line flushed. Pt tolerated well. PIV dc'd, pressure dressing applied. Pt dc'd in stable ambulatory condition with spouse. documented in this encounter [facility] 12-26-2023 History of Presen t illness Narrative Pt here for 2g IV magnesium infusion as scheduled. Mg level 1.6. Tolerating infusions well. PIV initiated to RFA. Brisk blood return noted, flushes with ease. NS started at KVO. Magnesium infused over 2 hours. Pt tolerated well. Line flushed. PIV dc'd. Pressure dressing applied. Pt v/u of future appointments. documented in this encounter [facility] 12-19-2023 History of Presen t illness Narrative Pt here for 4g IV magnesium infusion as scheduled. Mg level 1.5. Tolerating infusions well. PIV initiated to LFA. Brisk blood return noted, flushes with ease. NS started at KVO. Magnesium infused over 4 hours. Pt tolerated well. Line flushed. PIV dc'd. Pressure dressing applied. Pt v/u of future appointments. documented in this encounter [facility] 12-12-2023 History of Presen t illness Narrative Patient is here for 2g IV magnesium as scheduled. Mg level 1.7. PIV initiated blood return noted, flushes with ease. NS started at KVO. Magnesium infused over 2 hours. Line flushed. Pt tolerated well. PIV dc'd, pressure dressing applied. Pt dc'd in stable ambulatory condition with spouse. documented in this encounter [facility] 12-05-2023 History of Presen t illness Narrative Patient here for 2g IV magnesium as scheduled. Mg level 1.7. PIV initiated blood return noted, flushes with ease. NS started at KVO. Magnesium infused over 2 hours. Line flushed. Pt tolerated well. PIV dc'd, pressure dressing applied. Pt dc'd in stable ambulatory condition with spouse. documented in this encounter [facility] 12-04-2023 Miscellaneous Notes Patient called and these are both covered by insurance and she would like these sent in instead of what the alternative was documented in this encounter [facility] 12-04-2023 Telephone encounter Note Patient called and these are both covered by insurance and she would like these sent in instead of what the alternative [facility] 11-28-2023 History of Presen t illness Narrative Patient here for 2g IV magnesium as scheduled. Mg level 1.8. PIV initiated to LFA Brisk blood return noted, flushes with ease. NS started at KVO. Magnesium infused over 2 hours. Line flushed. Pt tolerated well. PIV dc'd, pressure dressing applied. Pt dc'd in stable ambulatory condition with spouse. documented in this encounter [facility] 11-26-2023 History of Presen t illness Narrative Subjective Patient ID: Adore Wolff is a 83 y.o. female. Adore presents for recheck of multiple problems. She is currently getting a series of magnesium infusions due to critically low magnesium level. She was asymptomatic. She got her labs done today at [facility]. She has information regarding her [...] Objective Physical Exam Exam conducted with a step finisher present (). Constitutional: Appearance: She is morbidly [...] disease due to type 2 diabetes mellitus ([facility]) Blood pressure essentially at goal. Await CMP results. Await A1c and ACR results. Mixed hyperlipidemia Await lipid results Hypomagnesemia Managed by Nephrology. 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 Continue omeprazole. PPI can also lead to low magnesium. Morbid obesity ([facility]) She is morbidly obese. She would benefit [...] the skin nightly. [facility] History of Presen t illness Narrative [...] Treatment calendar provided. [facility] 11-19-2023 Note Continue statin [facility] 11-19-2023 Note Hypertension is elev ated in office today was 192/86 and repeat b/p improved 158/80 Typically b/p is 122-150/60-80 at home and at other physician offices. Continue all meds ramipril, coreg [facility] 11-19-2023 Note Coronary artery dise ase is stable Continue GDMT- ASA, lipitor, coreg continue risk factor modifications- heart healthy diet, regular exercise as tolerated and continue all medications. [facility] 11-19-2023 Note Patient here for 1 y ear follow up CAD, hypertension, and venous insufficiency. Had labs a week or so ago for manager health and says she's in the process of [...] All other systems reviewed and are negative. [facility] 11-19-2023 Note [facility] [...] labs a week or so ago for manager health and says she's in the process of [...] 2.05, BUN 64, (more content not included)... [facility] 08-23-2023 Evaluation note Encounter Date [...] magnesium diet and provide information about it. Spontaneously Other 03-16-2023 NoteCONSULTATION CONSULTATION DATE: 01/25/2023 HISTORY: [...] and to talk with Dr. Munoz, their manager health, to confirm that this was acceptable, considering her stage 3 kidney disease. Other than that, we will see her in three months' time at the clinic, unless otherwise indicated. Patient and agree with this plan.[facility] 01-25-2023 Evaluation note* Encounter Date [...] magnesium diet and provide information about it. Spontaneously [facility] Chief Complaint: Patient being seen via telephone call for 6 mo follow up hypertension, CAD, and CKD. She denies chest pain and increased SOB with exertion. C/o increased LE edema but denies weight gain. Says her manager health Dr. Munoz advised her to call him [...] enzyme inhibitor/receptor micki. 4. Follow up with [facility] Cardiology in the next 2 [...] creatinine and electrolytes; she follows with her manager health Leg swelling is likely related to venous [...] was initiated by the patient and conducted [id number] with use of audio-only real time telephone communication between patient and provider for a virtual visit. Verbal consent to provide and bill for this service was obtained on 12/06/2022. No signature was obtained due to the COVID-19 pandemic. Moe Parham MD, MPH, [facility], [facility], [facility] Interventional Cardiology Pager Email: [email or web address] NoteCONSULTATION CONSULTATION DATE: 10/26/2022 HISTORY OF PRESENT ILLNESS: This is a very pleasant, 82-year-old female who presents with her for a three month follow up. Today, she reports 0/10 pain and is overall doing well. At her last appointment on 08/02/2022, we had switched her medications from [place] to tramadol extended release 100 mg per day, which she feels is helping very much. It is lasting for her better than the Albany. She is also on Lyrica 75 mg [...] indicated, and patient agrees with this plan.[id number] NoteCONSULTATION CONSULTATION DATE: 08/02/2022 HISTORY OF PRESENT ILLNESS: This is a pleasant, 81-year-old female, accompanied by her , returning to the clinic for a three month follow up for chronic lower back pain. She was last seen on 04/25/[address] Stern which, at that time, her Albany was decreased to 5/325 daily p.r.n., which [...] increased to 100 mg extended release daily. Albany will be discontinued. Education was given regarding use of the menthol heat rub with Voltaren gel and heat application to her back. Vitamin and nutrition importance was discussed. Patient will be seen back in the clinic in three months' time, unless otherwise indicated, and patient agrees to this.[id number] Evaluation note* Encounter Date Diagnosis Assessment Notes [...] any recent gout flare. She takes allopurinol. Spontaneously Other 06-22-2022 Evaluation note* Encounter Date Diagnosis Assessment Notes Treatment Notes Treatment Clinical Notes Apr, Hypertensive chronic kidney disease with stage 1 through stage 4 chronic kidney disease, or unspecified chronic kidney disease (ICD-10 - I12.9) Spontaneously Other 06-14-2022 NoteCONSULTATION CONSULTATION DATE: 04/25/2022 CHIEF [...] 4/10. She is managing the pain with Albany 5/325 one table daily and tramadol 50 [...] the patient's pain medication which would be Albany 5/325 one tablet daily and tramadol 50 [...] she need us. CC: Fernie Clark D.O. [facility] Signed and Approved by: DR LUISA STERN . 05/02/2022 08:52:00[facility]05-26-2022 Evaluation note* Encounter Date Diagnosis Assessment [...] any recent gout flare. She takes allopurinol. Spontaneously Other 05-19-2022 NoteCONSULTATION CONSULTATION DATE: 03/30/2022 This [...] She was given a 14-day prescription of Albany 5/325 b.i.d. to help with the acuity of her post-procedure pain. Today she reports the Albany is gone and she is back on [...] and rather we will maintain her on Albany 5/325 b.i.d. which proved to be the [...] and agree and would like to proceed. [facility] Signed and Approved by: JONNY CAMPUZANO . 04/03/2022 15:07:00[facility]02-15-2022 Evaluation note* Encounter Date Diagnosis Assessment [...] any recent gout flare. She takes allopurinol. Spontaneously Other Evaluation noteNo InformationNort You.i Other Evaluation noteNo assessment information available [facility] Work Phone: Evaluation note* Diagnosis Onset Date Resolution Status Anemia of renal disease acut e CKD (chronic kidney disease) stage 3, GFR 30-59 ml/min acute [id number] acute Hyperuricemia acute Hypomagnesemia acute Secondary hyperparathyroidism acute Type 2 diabetes mellitus wit h diabetic chronic kidney disease acute [facility] Work Phone: Evaluation note* Diagnosis Hypomagnesemia- Primary Disorders of magnesium metabolism documented in this encounter [facility]* Diagnosis Hypomagnesemia- Primary Disorders of magnesium metabolism documented [facility]* Diagnosis 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 ([facility])- Primary Morbid obesity ([facility]) Morbid obesity documented in [facility]* Diagnosis 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 ([facility])- Primary Morbid obesity ([facility]) Morbid obesity documented [facility]* Diagnosis Lumbar stenosis with neurogenic claudication- Primary documented in this [facility]* Diagnosis Lumbar stenosis with neurogenic claudication documented in [facility]* Diagnosis Hypomagnesemia- Primary Disorders of magnesium metabolism documented in this [facility]* Diagnosis Hypomagnesemia- Primary Disorders of magnesium metabolism documented in [facility]* Diagnosis Hypomagnesemia- Primary Disorders of magnesium metabolism documented in this encounter [facility] [employer] SystemEvaluation note* Diagnosis Mixed hyperlipidemia- Primary Type 2 diabetes mellitus with stage 3b chronic kidney disease, with long-term current use of insulin ([facility]) Essential hypertension Unspecified essential hypertension documented in this encounter [facility] [employer] SystemEvaluation note* Diagnosis Hypomagnesemia- Primary Disorders of magnesium metabolism documented in this encounter [facility] [employer] SystemEvaluation note* Diagnosis 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 ([facility])- Primary Mixed hyperlipidemia Hypomagnesemia 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 Morbid obesity ([facility]) Morbid obesity Chronic obstructive pulmonary disease, unspecified COPD type ([facility]) documented in this encounter [facility]* Diagnosis Hypomagnesemia- Primary Disorders of magnesium metabolism documented in this encounter [facility]* Diagnosis Hypomagnesemia- Primary Disorders of magnesium metabolism [facility] Diagnosis Hypomagnesemia- Primary Disorders of magnesium metabolism [facility] Diagnosis Hypomagnesemia- Primary Disorders of magnesium metabolism documented in this encounter [facility]* Diagnosis Hypomagnesemia- Primary Disorders of magnesium metabolism documented in this encounter [facility]* Diagnosis Acute cystitis with hematuria- Primary Essential hypertension Unspecified essential hypertension Acute right-sided low back pain without sciatica Nausea Nausea alone Anxiety Anxiety state, unspecified documented in this encounter [facility]* Diagnosis Medicare annual wellness visit, subsequent- Primary Screening for depression documented in this encounter [facility]* Diagnosis Constipation, unspecified constipation type- Primary Essential hypertension Unspecified essential hypertension Dysuria History of UTI History of sepsis Personal history of other infectious and parasitic disease Chronic low back pain without sciatica, unspecified back pain laterality documented in this encounter [facility]* Diagnosis 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 ([facility])- Primary Dysuria Acute rhinitis Acute nasopharyngitis (common cold) Morbid obesity ([facility]) Morbid obesity Incontinence of feces with fecal urgency documented in this encounter [facility]* Diagnosis 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 ([facility])- Primary documented in this encounter [facility]* Diagnosis Hypomagnesemia- Primary Disorders of magnesium metabolism documented in this encounter [facility]* Diagnosis Hypomagnesemia- Primary Disorders of magnesium metabolism documented in this encounter [facility]* Diagnosis Hypomagnesemia- Primary Disorders of magnesium metabolism documented in this encounter [facility]* Diagnosis Urinary incontinence, unspecified type- Primary Abnormality of gait and mobility documented in this encounter [facility]* Diagnosis Hypomagnesemia- Primary Disorders of magnesium metabolism documented in this encounter [facility]* Diagnosis Hypomagnesemia- Primary Disorders of magnesium metabolism [facility] Diagnosis 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 ([facility])- Primary Morbid obesity ([facility]) Morbid obesity [facility] Diagnosis Paresthesia of right lower extremity- Primary Ross's esophagus with dysplasia [facility] Diagnosis Hypomagnesemia- Primary Disorders of magnesium metabolism [facility] Diagnosis Lumbar stenosis with neurogenic claudication [facility] Diagnosis Lumbar stenosis with neurogenic claudication documented in this encounter [facility] [employer] [facility] - [facility]* Type Description Date [...] IN LOWER BACK Hospitalization History see above Spontaneously Other [employer] general Narrative - Reported* Type Description Date [...] HEART CATH 03/30/2021 Hospitalization History see above Spontaneously Other [employer] general Narrative - Reported* Type Description Date [...] IN LOWER BACK Hospitalization History see above Spontaneously Other InstructionsNot on filedocumented in this encounter [...] kidney disease) stage 3, GFR 30-59 ml/min [id number] Hyperuricemia Hypomagnesemia Secondary hyperparathyroidism Type 2 diabetes mellitus with diabetic chronic kidney disease Chief Complaint Admit Date Unknown November 20, 2024 4: 20am Additional Source Comments INFORMATION SOURCE (unrecogn ized section and content) DATE CREATED AUTHOR 04/06/2021 [facility] DATE CREATED AUTHOR AUTHOR'S ORGANIZ ATION 05/12/2022 [facility] DATE CREATED AUTHOR AUTHOR'S ORGANIZ ATION 03/15/2023 [facility] DATE CREATED AUTHOR AUTHOR'S ORGANIZ ATION 11/19/2023 [facility] DATE CREATED AUTHOR AUTHOR'S ORGANIZ ATION 05/31/2024 [facility] DATE CREATED AUTHOR AUTHOR'S ORGANIZ ATION 06/03/2024 [facility] DATE CREATED AUTHOR AUTHOR'S ORGANIZ ATION 11/07/2024 [facility] DATE CREATED AUTHOR AUTHOR'S ORGANIZ ATION 11/23/2024 [facility] DATE CREATED AUTHOR AUTHOR'S ORGANIZ ATION 11/26/2024 [facility] REASON FOR VISIT (unrecogniz ed [...] Active Gia Munoz MD Attending Provider Active Warehouse Associate Relationship Specialty Start Date End Date Roxann Fernie Jamarcus [address], [place] [address] PCP - General Family Medicine 05/09/17 Flori Mon [facility] Nurse - [employer] 06/26/24 Warehouse Associate Relationship Specialty Start Date End Date Fernie Clark DO [address], [place] [address] PCP - General Family Medicine 05/09/17 Flori Mon [facility] Nurse - [employer] 06/26/24 Warehouse Associate Relationship Specialty Start Date End Date Roxann Fernie Jamarcus [address], [place] [address] PCP - General Family Medicine 05/09/17 Flori Mon [facility] Nurse - [employer] 06/26/24 Warehouse Associate Relationship Specialty Start Date End Date Fernie Clark JamarcusDO [address], [place] [address] PCP - General Family Medicine 05/09/17 Flori Mon [facility] Nurse - [employer] 06/26/24 Warehouse Associate Relationship Specialty Start Date End Date Fernie Clark DO [address], [place] [address] PCP - General Family Medicine 05/09/17 Flori Mon [facility] Nurse - [employer] 06/26/24 Warehouse Associate Relationship Specialty Start Date End Date Tracyangel luisFernie [address], [place] [address] PCP - General Family Medicine 05/09/17 Clari Alasandro [facility] Nurse - [employer] 11/17/24 Warehouse Associate Relationship Specialty Start Date End Date RoxannFernieDO [address], [place] [address] PCP - General Family Medicine 05/09/17 Clari Alasandro [facility] Nurse - [employer] 11/17/24 Warehouse Associate Relationship Specialty Start Date End Date Tracyangel luisFernie [address] [place] [address] PCP - General Family Medicine 05/09/17 Clari Alasandro [facility] Nurse - [employer] 11/17/24 Warehouse Associate Relationship Specialty Start Date End Date Tracyangel luisFernie [address], [place] [address] PCP - General Family Medicine 05/09/17 Clari Alasandro [facility] Nurse - [employer] 11/17/24 Warehouse Associate Relationship Specialty Start Date End Date Roxann Fernie Ricketts DO [address] [place] [address] PCP - General Family Medicine 05/09/17 Clari Costa [facility] Nurse Suresh [facility] 11/17/24 Warehouse Associate Relationship Specialty Start Date End Date RoxannFernie [address] [place] [address] PCP - General Family Medicine 05/09/17 Warehouse Associate Relationship Specialty Start Date End Date RoxannFernie [address] [place] [address] PCP - General Family Medicine 05/09/17 Warehouse Associate Relationship Specialty Start Date End Date Roxann Fernie G, [address] [place] [address] PCP - General Family Medicine 05/09/17 Warehouse Associate Relationship Specialty Start Date End Date RoxannFernie [address] [place] [address] PCP - General Family Medicine 05/09/17 Warehouse Associate Relationship Specialty Start Date End Date RoxannFernie [address] [place] [address] PCP - General Family Medicine 05/09/17 Warehouse Associate Relationship Specialty Start Date End Date Roxann Fernie G, [address] [place] [address] PCP - General Family Medicine 05/09/17 Warehouse Associate Relationship Specialty Start Date End Date TracymonicaFernie noguera DO [address], [place] [address] PCP - General Family Medicine 05/09/17 Warehouse Associate Relationship Specialty Start Date End Date RoxannFernie DO [address] [place] [address] PCP - General Family Medicine 05/09/17 Warehouse Associate Relationship Specialty Start Date End Date RoxannFernie DO [address] [place] [address] PCP - General Family Medicine 05/09/17 Warehouse Associate Relationship Specialty Start Date End Date RoxannFernie DO [address] [place] [address] PCP - General Family Medicine 05/09/17 Warehouse Associate Relationship Specialty Start Date End Date RoxannFernie DO [address] [place] [address] PCP - General Family Medicine 05/09/17 Warehouse Associate Relationship Specialty Start Date End Date RoxannFernie DO [address] [place] [address] PCP - General Family Medicine 05/09/17 Jeni Coronel [facility] Nurse [facility] 04/23/24 Warehouse Associate Relationship Specialty Start Date End Date RoxannFernie DO [address] [place] [address] PCP - General Family Medicine 05/09/17 Warehouse Associate Relationship Specialty Start Date End Date TracymonicaFernie noguera [address], [place] [address] PCP - General Family Medicine 05/09/17 Warehouse Associate Relationship Specialty Start Date End Date TracymonicaFernie noguera [address], [place] [address] PCP - General Family Medicine 05/09/17 Jeni Coronel [facility] Nurse - [employer] 04/23/24 Warehouse Associate Relationship Specialty Start Date End Date Tracyangel luisFernie [address], [place] [address] PCP - General Family Medicine 05/09/17 Jeni Coronel [facility] Nurse - [employer] 04/23/24 Warehouse Associate Relationship Specialty Start Date End Date TracymonicaFernie noguera [address], [place] [address] PCP - General Family Medicine 05/09/17 Jeni Coronel [facility] Nurse - [employer] 04/23/24 Warehouse Associate Relationship Specialty Start Date End Date Tracyangel luisFernie [address], [place] [address] PCP - General Family Medicine 05/09/17 Warehouse Associate Relationship Specialty Start Date End Date RoxannFernie [address], [place] [address] PCP - General Family Medicine 05/09/17 Clari Costa [facility] Nurse - [employer] 11/17/24 Warehouse Associate Relationship Specialty Start Date End Date Tracyangel luisFernie [address], [place] [address] PCP - General Family Medicine 05/09/17 Clari Costa [facility] Nurse - [employer] 11/17/24 Warehouse Associate Relationship Specialty Start Date End Date Roxann Fernie GDO [address], [place] [address] PCP - General Family Medicine 05/09/17 Jeni Coronel [facility] Nurse - [employer] 04/23/24 Warehouse Associate Relationship Specialty Start Date End Date Fernie Clark DO [address], [place] [address] PCP - General Family Medicine 05/09/17 Jeni Coronel [facility] Nurse - [employer] 04/23/24 Warehouse Associate Relationship Specialty Start Date End Date Fernie Clark DO [address], [address] [place] [address] PCP - General Family Medicine 05/09/17 Jeni Coronel [facility] Nurse - [employer] 04/23/24 Warehouse Associate Relationship Specialty Start Date End Date Fernie Clark DO [address], [place] [address] PCP - General Family Medicine 05/09/17 Jeni Coronel [facility] Nurse - [employer] 04/23/24 Warehouse Associate Relationship Specialty Start Date End Date Fernie Clark [address], [place] [address] PCP - General Family Medicine 05/09/17 Jeni Coronel [facility] Nurse - [employer] 04/23/24 Warehouse Associate Relationship Specialty Start Date End Date Tracyangel luisFernie [address], [place] [address] PCP - General Family Medicine 05/09/17 Warehouse Associate Relationship Specialty Start Date End Date Tracyangel luisFernie [address], [place] [address] PCP - General Family Medicine 05/09/17 Jeni Coronel [facility] Nurse - [employer] 04/23/24 Warehouse Associate Relationship Specialty Start Date End Date Tracyangel luisFernie [address], [place] [address] PCP - General Family Medicine 05/09/17 Warehouse Associate Relationship Specialty Start Date End Date Tracyangel luisFernie [address], [place] [address] PCP - General Family Medicine 05/09/17 Flori Mon [facility] Nurse - [employer] 06/26/24 Warehouse Associate Relationship Specialty Start Date End Date Roxann Fernie Ricketts DO [address] [place] [address] PCP - General Family Medicine 05/09/17 Flori Mon [facility] Nurse - [employer] 06/26/24 Warehouse Associate Relationship Specialty Start Date End Date Fernie Clark DO [address], [place] [address] PCP - General Family Medicine 05/09/17 Flori Mon [facility] Nurse - [employer] 06/26/24 Warehouse Associate Relationship Specialty Start Date End Date Fernie Clark DO [address], [place] [address] PCP - General Family Medicine 05/09/17 Flori Mon [facility] Nurse - [employer] 06/26/24 Warehouse Associate Relationship Specialty Start Date End Date Fernie Clark DO [address], [place] [address] PCP - General Family Medicine 05/09/17 Flori Mon [facility] Nurse - [employer] 06/26/24 Warehouse Associate Relationship Specialty Start Date End Date Fernie Clark DO [address], [place] [address] PCP - General Family Medicine 05/09/17 Flori Mon [facility] Nurse - [employer] 06/26/24 Warehouse Associate Relationship Specialty Start Date End Date Fernie Clark DO [address], [place] [address] PCP - General Family Medicine 05/09/17 Flori Mon [facility] Nurse - [employer] 06/26/24 Warehouse Associate Relationship Specialty Start Date End Date Fernie Clark DO [address], [place] [address] PCP - General Family Medicine 05/09/17 Flori Mon [facility] Nurse - [employer] 06/26/24 Warehouse Associate Relationship Specialty Start Date End Date Fernie Clark [address], [place] [address] PCP - General Family Medicine 05/09/17 Flori Mon [facility] Nurse - [employer] 06/26/24 Warehouse Associate Relationship Specialty Start Date End Date Fernie Clark DO [address], [place] [address] PCP General Family [facility] 05/09/17 Flori Mon [facility] 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 [facility]. provides no warranty or guarantee of the accuracy or completeness of information in this document.
--- NOTE | 2025-01-04 04:54 | PC.NURSE ---
bilateral lower extremities
--- NOTE | 2025-01-04 04:57 | PC.NURSE ---
right skin fold
--- NOTE | 2025-01-04 04:59 | PC.NURSE ---
left skin fold
[2025-01-04] MEDS: ALBUTEROL SULFATE 2.5 MG/3 ML VIAL NEB IH ×4 (05:30→20:26)
[2025-01-04 06:19] LABS: Hematocrit 34.4 % (36.0-48.0); Hemoglobin 10.7 g/dL (12.0-16.0); Mean Corpuscular HGB Conc 31.1 g/dL (29.9-35.2); Mean Corpuscular Hemoglobin 29.4 pg (26.7-34.0); Mean Corpuscular Volume 94.5 fL (81.0-99.0); Mean Platelet Volume 10.5 fL (9.5-13.5); Platelet Count 187 10^3/uL (150-450); Red Blood Count 3.64 10^6/uL (4.20-5.40); Red Cell Distribution Width 14.7 % (11.0-15.0); White Blood Count 7.7 10^3/uL (4.0-11.0)
[2025-01-04 06:42] LABS: Anion Gap 11.7; BUN Creatinine Ratio 17.6; Calcium 9.7 mg/dL (8.5-10.1); Carbon Dioxide 27.6 mmol/L (21.0-32.0); Chloride 108 mmol/L (98-107); Estimated GFR (African America 53 (>=60 mL/min/1.73m^2); Estimated GFR (Non-African Ame 43 (>=60 mL/min/1.73m^2); Glucose 151 mg/dL (74-106); Potassium 4.3 mmol/L (3.5-5.1); Sodium 143 mmol/L (136-145)
[2025-01-04 08:41] LABS: Theophylline 13.1 ug/mL (10.0-20.0)
[2025-01-04] MEDS: ENSURE HP 237 ML LIQUID PO (09:37)
[2025-01-04] MEDS: ENOXAPARIN SODIUM 40 MG/0.4 ML SYRINGE SUBQ (09:37)
[2025-01-04] MEDS: SENNOSIDES 8.6 MG TABLET PO (09:38)
[2025-01-04] MEDS: ACETAMINOPHEN 500 MG TABLET 1000 MG PO (09:38)
[2025-01-04] MEDS: CETIRIZINE HCL 10 MG TABLET PO (09:38)
[2025-01-04] MEDS: ASPIRIN 81 MG TABLET.DR PO (09:38)
[2025-01-04] MEDS: OMEPRAZOLE 40 MG CAPSULE.DR PO (09:38)
[2025-01-04] MEDS: CARVEDILOL 12.5 MG TABLET 25 MG PO (09:38)
[2025-01-04] MEDS: PREGABALIN 75 MG CAPSULE PO (09:38)
[2025-01-04] MEDS: LISINOPRIL 10 MG TABLET 40 MG PO (09:41)
--- NOTE | 2025-01-04 10:40 | PM.HP ---
HPI H&P: HPI History of Present Illness Chief complaint: UTI Metabolic encephalopathy Narrative: 84-year-old female with chronic, recurrent UTI, severe COPD, type 2 diabetes who was just discharged from the hospital for left arm and wrist pain was brought over to ED for generalized weakness and confusion. According to the ER report, it was pointed out by the patient's that she had decreased level of activity than usual. She was given oxycodone for pain and she slept well after that but upon waking up was noticeably confused for which she was brought over to ED for further evaluation. Workup in ER revealed metabolic encephalopathy likely secondary to urinary tract infection in which she was admitted overnight and started on IV hydration and IV Rocephin. Earlier today, when I evaluated her she was still feeling very weak and tired. She was nauseous and retching. According to the this is chronic and ongoing and she is usually like that in the morning. Patient denies abdominal pain, constipation, diarrhea. She she denies any urinary complaints. Opioid HPI Opioid Management Most Recent Pain and Opioid Data: Last Pain Scale 4 01/04/25 06:00 01/04/25 Last Pain Intensity 4 11/27/24 11:35 11/27/24 Last Pain Assessment 01/04/25 10:22 Last MAR Pain Assessment 01/04/25 10:23 Last ORT Total Score 0 01/04/25 04:52 01/04/25 Last ORT Risk Category Low Risk 01/04/25 04:52 01/04/25 Review of Systems ROS Status of ROS 10 or more systems reviewed and unremarkable except as noted in history and below [facility] Medical History Generalized weakness ?R53.1 - Weakness (ICD-10) Altered mental status ?R41.82 - Altered mental status, unspecified (ICD-10) Acute kidney failure ?N17.9 - Acute kidney failure, unspecified (ICD-10) HLD (hyperlipidemia) ?E78.5 - Hyperlipidemia, unspecified (ICD-10) CKD stage 3b, GFR 30-44 ml/min ?N18.32 - Chronic kidney disease, stage 3b (ICD-10) Constipation due to opioid therapy ?K59.03 - Drug induced constipation (ICD-10) ?T40.2X5A - Adverse effect of other opioids, initial encounter (ICD-10) Chronic use of opiate drug for therapeutic purpose ?Z79.891 - group home (current) use of opiate analgesic (ICD-10) Lumbar stenosis with neurogenic claudication ?M48.062 - Spinal stenosis, lumbar region with neurogenic claudication (ICD-10) Diabetes ?E11.9 - Type 2 diabetes mellitus without complications (ICD-10) COPD (chronic obstructive pulmonary disease) ?J44.9 - Chronic obstructive pulmonary disease, unspecified (ICD-10) HTN (hypertension) ?I10 - Essential (primary) hypertension (ICD-10) Chronic prescription opiate use ?Z79.891 - group home (current) use of opiate analgesic (ICD-10) Lumbar radiculopathy, chronic ?M54.16 - Radiculopathy, lumbar region (ICD-10) Complication of electrolyte disorder ?E87.8 - Other disorders of electrolyte and fluid balance, not elsewhere classified (ICD-10) Concussion ?S06.0XAA - Concussion with loss of consciousness status unknown, initial encounter (ICD-10) Bilateral knee pain ?M25.561 - Pain in right knee (ICD-10) ?M25.562 - Pain in left knee (ICD-10) Muscle spasm ?M62.838 - Other muscle spasm (ICD-10) Lumbar spondylosis ?M47.816 - Spondylosis without myelopathy or radiculopathy, lumbar region (ICD-10) Knee osteoarthritis ?M17.9 - Osteoarthritis of knee, unspecified (ICD-10) Chronic kidney disease ?N18.9 - Chronic kidney disease, unspecified (ICD-10) Acute neck pain ?M54.2 - Cervicalgia (ICD-10) Head injury due to trauma ?S09.90XA - Unspecified injury of head, initial encounter (ICD-10) Urinary tract infection ?N39.0 - Urinary tract infection, site not specified (ICD-10) GERD without esophagitis ?K21.9 - Gastro-esophageal reflux disease without esophagitis (ICD-10) Gout due to renal impairment ?M10.30 - Gout due to renal impairment, unspecified site (ICD-10) Osteoarthritis ?M19.90 - Unspecified osteoarthritis, unspecified site (ICD-10) Anemia ?D64.9 - Anemia, unspecified (ICD-10) Carpal tunnel syndrome ?G56.00 - Carpal tunnel syndrome, unspecified upper limb (ICD-10) Acid reflux ?K21.9 - Gastro-esophageal reflux disease without esophagitis (ICD-10) Cirrhosis of liver ?K74.60 - Unspecified cirrhosis of liver (ICD-10) Kidney stone ?N20.0 - Calculus of kidney (ICD-10) Kidney failure ?N19 - Unspecified kidney failure (ICD-10) Asthma ?J45.909 - Unspecified asthma, uncomplicated (ICD-10) High cholesterol ?E78.00 - Pure hypercholesterolemia, unspecified (ICD-10) Surgical History History of appendectomy ?Z90.49 - Acquired absence of other specified parts of digestive tract (ICD-10) History of hysterectomy ?Z90.710 - Acquired absence of both cervix and uterus (ICD-10) History of neck surgery ?Z98.890 - Other specified postprocedural states (ICD-10) Hx of cholecystectomy ?Z90.49 - Acquired absence of other specified parts of digestive tract (ICD-10) History of lumbar laminectomy ?Z98.890 - Other specified postprocedural states (ICD-10) History of cardiac cath ?Z98.890 - Other specified postprocedural states (ICD-10) Family History Father Family history of CHF (congestive heart failure) Family history of COPD (chronic obstructive pulmonary disease) Family history of cancer Family history of diabetes mellitus Family history of hypertension Mother Family history of diabetes mellitus Family history of hypertension Family history of myocardial infarction Sister Family history of myocardial infarction Social History Within the past year, how often did you have a drink containing alcohol: never Score interpretation: A score less than 3 is consistent with normal alcohol consumption. Smoking status: Never smoker Non-prescribed substance use: denies use Previous occupational history: retired Highest level of school completed/degree received: don't know Are you now , , , , never or living with a partner: Little interest or pleasure in doing things: not at all Feeling down, depressed, or hopeless: not at all Do you think of yourself as: straight/heterosexual Gender Identity: female Meds Home Medications and Allergies Home Medications ?Medication ?Instructions ?Recorded ?Confirmed ?Type aspirin 81 mg tablet,delayed 81 mg PO DAILY 04/26/23 01/03/25 History release atorvastatin 80 mg tablet 80 mg PO DAILY 04/26/23 01/03/25 History insulin lispro 100 unit/mL 6 unit subcut BIDWM 04/26/23 01/03/25 History subcutaneous pen theophylline 400 mg 400 mg PO .QHS 04/26/23 01/03/25 History tablet,extended release 24 hr fluticasone furoate 200 1 inh inhalation Q24H 11/24/24 01/03/25 History mcg-vilanterol 25 mcg/dose inhalation powder (Breo Ellipta) insulin glargine 100 unit/mL (3 46 unit subcut .qhs 11/24/24 01/03/25 History mL) subcutaneous pen (Lantus Solostar U-100 Insulin) montelukast 10 mg tablet 10 mg PO .QHS 11/24/24 01/03/25 History pregabalin 75 mg capsule (Lyrica) 75 mg PO DAILY 11/24/24 01/03/25 History food supplemt, lactose-reduced 1 ea PO BID #5,688 mL 12/09/24 01/03/25 Rx (Ensure Active Protein-Muscle oral liquid) pantoprazole 40 mg tablet,delayed 40 mg PO DAILY #30 tabs 12/09/24 01/03/25 Rx release (Protonix) acetaminophen 500 mg tablet 1,000 mg PO .q8hr PRN pain 01/02/25 01/03/25 History albuterol 90 mcg/actuation aerosol 90 mcg inhalation Q4H PRN sob 01/02/25 01/03/25 History inhaler artificial 2 drp ophthalmic (eye) TID PRN dry 01/02/25 01/03/25 History tears(eogswje-gnwwebqt-mpanxgy) eye(s) 0.1 %-0.3 %-0.2 % eye drops (GenTeal Tears Moderate) baclofen 10 mg tablet 10 mg PO TID #0 tabs 01/02/25 01/03/25 Rx carvedilol 12.5 mg tablet 25 mg PO BID 01/02/25 01/03/25 History hydroxyzine HCl 25 mg tablet 25 mg PO QID PRN itching 01/02/25 01/03/25 History lisinopril 40 mg tablet 40 mg PO DAILY 01/02/25 01/03/25 History loratadine 10 mg tablet 10 mg PO DAILY 01/02/25 01/03/25 History ondansetron 4 mg disintegrating 4 mg PO Q6H PRN nausea and vomiting 01/02/25 01/03/25 History tablet oxycodone 5 mg tablet 5 mg PO Q6H PRN pain 3 days #10 01/02/25 01/03/25 Rx tabs sennosides 8.6 mg tablet 8.6 mg PO BID 01/02/25 01/03/25 History (Black-Draught Lax-Senna) Allergies Allergy/AdvReac Type Severity Reaction Status Date / Time adhesive tape Allergy Unknown rash Verified 01/02/25 07:16 povidone-iodine (From Allergy Unknown Rash Verified 01/02/25 07:16 Betadine) red dye Allergy Unknown Rash Verified 01/02/25 07:16 Sulfa (Sulfonamide Allergy Unknown Rash Verified 01/02/25 07:16 Antibiotics) tetracycline Allergy Unknown Rash Verified 01/02/25 07:16 Exam Constitutional Vital Signs, click to edit/add: Last Vital Signs Temp 98.0 F 01/04/25 07:42 Pulse 99 H 01/04/25 07:42 Resp 18 01/04/25 07:42 BP 188/90 H 01/04/25 07:42 Pulse Ox 90 L 01/04/25 07:42 O2 Del Method Nasal Cannula 01/04/25 07:42 O2 Flow Rate 2 01/04/25 07:42 Documenting provider has reviewed patient's vital signs: yes General appearance: cooperative Nutritional appearance: obese [facility] Common normals: normocephalic and head/scalp atraumatic Head and scalp: normocephalic and atraumatic Eye Common normals: conjunctivae normal and no scleral icterus Conjunctiva: conjunctiva(e) normal Respiratory Common normals: normal respiratory effort and clear to auscultation bilaterally Effort & inspection: able to speak in complete sentences Auscultation: clear to auscultation bilaterally Cardio Common normals: regular rate, S1 normal heart sound and S2 normal heart sound Rate: regular rate Heart sounds: S1 normal and S2 normal GI Common normals: Normal to inspection, nondistended, normoactive bowel sounds present, soft to palpation, non-tender and no hepatosplenomegaly Palpation: soft and no hepatosplenomegaly Neuro Common normals: oriented x3, moves all extremities and no focal motor deficits Other: Patient is AAOx3 but slow to respond and appears a bit confused, unable to carry on a conversation. Psych Common normals: mental status grossly normal, denies hallucinations, denies homicidal ideation and denies suicidal ideation Results Labs Labs: Short CBC 01/03/25 01/04/25 Range/Units 22:02 05:56 WBC 4.8 7.7 (4.0-11.0) 10^3/uL Hgb 10.1 L 10.7 L (12.0-16.0) g/dL Hct 31.5 L 34.4 L (36.0-48.0) % Plt Count 194 187 (150-450) 10^3/uL BMP 01/03/25 01/04/25 22:02 05:56 Sodium 140 143 Potassium 4.1 4.3 Chloride 107 108 H Carbon Dioxide 29.9 27.6 BUN 23.0 H 21.0 H Creatinine 1.26 H 1.19 H Glucose 163 H 151 H Calcium 9.4 9.7 Urine 01/03/25 Range/Units 23:10 Urine Color Lt. yellow (YELLOW) Urine Clarity Cloudy A (CLEAR) Urine pH 5.5 (5.0-9.0) Ur Specific [place] 1.025 (1.005-1.025) Urine Protein >=300 A (NEG/TRACE) mg/dL Urine Glucose (UA) Negative (NEGATIVE) mg/dL Assessment and Plan Assessment and Plan (1) Acute metabolic encephalopathy: Assessment and Plan: No acute finding on CTH. Likely due to dehydration and urinary tract infection. Continue with IV Rocephin. Monitor closely. Still overall weak and slightly confused and not at her baseline yet. (2) Generalized weakness: Assessment and Plan: Likely from UTI. PT/OT evaluation ordered. (3) Urinary tract infection: Assessment and Plan: on IV rocephin. F/u urine cx. Qualifiers: Hematuria presence: without hematuria Urinary tract infection type: acute cystitis Qualified Code(s): N30.00 - Acute cystitis without hematuria (4) CKD stage 3b, GFR 30-44 ml/min: Assessment and Plan: Baseline Cr is 1.5-1.8. Monitor renal function. (5) Diabetes: Assessment and Plan: Continue with basal bolus insulin. Monitor blood glucose closely. Qualifiers: Diabetes mellitus type: type 2 Diabetes mellitus terminal supervisor insulin use: with terminal supervisor use Diabetes mellitus complication status: with kidney complications Diabetes mellitus complication detail: with chronic kidney disease Chronic kidney disease stage: stage 3 (moderate) Chronic kidney disease stage 3 subtype: stage 3b (GFR 30-44) Qualified Code(s): E11.22 - Type 2 diabetes mellitus with diabetic chronic kidney disease; N18.32 - Chronic kidney disease, stage 3b; Z79.4 - oil heaterman (current) use of insulin (6) COPD (chronic obstructive pulmonary disease): Assessment and Plan: Stable. No bronchospasm noted. C/w home medications. Qualifiers: COPD type: unspecified COPD Qualified Code(s): J44.9 - Chronic obstructive pulmonary disease, unspecified (7) HTN (hypertension): Assessment and Plan: Poorly controlled. Continue with home medications. IV hydralazine as needed ordered. Qualifiers: Hypertension type: secondary to endocrine disorders Qualified Code(s): I15.2 - Hypertension secondary to endocrine disorders (8) HLD (hyperlipidemia): Assessment and Plan: c/w Lipitor. Qualifiers: Hyperlipidemia type: unspecified Qualified Code(s): E78.5 - Hyperlipidemia, unspecified Urinary Catheter Management Urinary Catheter Management Straight: Cath placed during this visit: yes Urethral indwelling: No Insertion date: 01/03/25 Insertion time: 23:15 [employer]: Cath placed during this visit: no
[2025-01-04 11:37] LABS: Glucometer 174 mg/dL (74-106)
[2025-01-04] MEDS: BUDESONIDE 0.5 MG/2 ML AMPULE NEB IH ×2 (11:43→20:26)
[2025-01-04] MEDS: HYDROXYZINE HCL 25 MG TABLET PO (14:59)
[2025-01-04] MEDS: BACLOFEN 10 MG TABLET PO (14:59)
[2025-01-04 16:31] LABS: Glucometer 230 mg/dL (74-106)
[2025-01-04 20:17] LABS: Glucometer 144 mg/dL (74-106)
[2025-01-05] VITALS (13 sets, daily range): BP systolic 148–173; BP diastolic 71–79; PULSE 50–88; TEMP 36.5–36.9; O2SAT 94–97
[2025-01-05] MEDS: HYDRALAZINE HCL 20 MG/ML VIAL 10 MG IVP (04:15)
[2025-01-05] MEDS: ALBUTEROL SULFATE 2.5 MG/3 ML VIAL NEB IH ×4 (05:00→22:00)
[2025-01-05] MEDS: BACLOFEN 10 MG TABLET PO ×3 (05:12→22:12)
[2025-01-05 06:09] LABS: Basophils Percent Auto 0.4 % (0.2-2.0); Eosinophils Absolute Auto 0.4 10^3/uL (0.0-0.7); Eosinophils Percent Auto 7.5 % (0.9-7.0); Hematocrit 31.5 % (36.0-48.0); Immature Granulocytes Abs Auto 0.04 10^3/uL (0.00-0.03); Immature Granulocytes Pct Auto 0.8 % (0.0-0.5); Lymphocytes Absolute Auto 0.9 10^3/uL (1.2-3.8); Lymphocytes Percent Auto 17.2 % (20.5-60.0); Mean Corpuscular HGB Conc 31.7 g/dL (29.9-35.2); Mean Corpuscular Hemoglobin 29.9 pg (26.7-34.0); Mean Platelet Volume 10.3 fL (9.5-13.5); Monocytes Absolute Auto 0.7 10^3/uL (0.3-0.8); Monocytes Percent Auto 12.5 % (1.7-12.0); Neutrophils Absolute Auto 3.2 10^3/uL (1.4-6.5); Neutrophils Percent Auto 61.6 % (43.0-75.0); Platelet Count 187 10^3/uL (150-450); Red Blood Count 3.35 10^6/uL (4.20-5.40); Red Cell Distribution Width 14.9 % (11.0-15.0); White Blood Count 5.2 10^3/uL (4.0-11.0)
[2025-01-05 06:33] LABS: Alanine Aminotransferase 12 U/L (14-59); Albumin Globulin Ratio 0.5; Albumin Level 1.9 g/dL (3.4-5.0); Alkaline Phosphatase 88 U/L (46-116); Aspartate Amino Transferase 23 U/L (15-37); BUN Creatinine Ratio 15.8; Bilirubin Total 0.3 mg/dL (0.2-1.0); Calcium 9.3 mg/dL (8.5-10.1); Carbon Dioxide 28.3 mmol/L (21.0-32.0); Chloride 107 mmol/L (98-107); Estimated GFR (African America 33 (>=60 mL/min/1.73m^2); Estimated GFR (Non-African Ame 27 (>=60 mL/min/1.73m^2); Globulin 3.5 g/dL; Glucose 129 mg/dL (74-106); Potassium 4.3 mmol/L (3.5-5.1); Sodium 144 mmol/L (136-145); Total Protein 5.4 g/dL (6.4-8.2)
--- NOTE | 2025-01-05 07:56 | P.PN_ITS ---
Progress Note: Subjective Subjective Interval history: Patient is up in the chair today, her is present at bedside during exam. Patient states her arms, lower back and legs hurt. reports there has been very little improvement at the [place] with rehab. She continues to not have a good appetite, will drink ensures. She denies any recent falls. Just says her body hurts and she doesn't want to move much. No fevers or chills. Having normal, daily BM's. Exam Narrative Exam Narrative: General: Patient is alert, and oriented to person, place but just appears weak Skin: no visible rashes, or ulcers Head: atraumatic, acephalic Eyes: PERRLA, no nystagmus present, conjunctiva clear, no scleral icterus Ears: normal gross auditory acuity Neck: no masses palpated Heart: Normal rate and rhythm, no murmurs/rubs/gallops Lungs: no audible wheezes, crackles and normal breath sounds all lung valentin Abdomen: Normal audible bowel sounds, no distension, No palpable masses, no organomegaly, no rebound/guarding/ or rigidity Musculoskeletal:+1 pitting/swelling bilateral lower extremities with bilateral erythema on the anterior legs Neuro: CN II-X grossly intact Constitutional Vital Signs, click to edit/add: Last Vital Signs Temp 98.4 F 01/05/25 07:38 Pulse 64 01/05/25 07:38 Resp 16 01/05/25 07:38 BP 150/78 H 01/05/25 07:38 Pulse Ox 95 01/05/25 07:38 O2 Del Method Nasal Cannula 01/05/25 07:38 O2 Flow Rate 2 01/05/25 07:38 Progress Note: Objective Labs Labs: Short CBC 01/05/25 Range/Units 06:05 WBC 5.2 (4.0-11.0) 10^3/uL Hgb 10.0 L (12.0-16.0) g/dL Hct 31.5 L (36.0-48.0) % Plt Count 187 (150-450) 10^3/uL BMP 01/05/25 06:05 Sodium 144 Potassium 4.3 Chloride 107 Carbon Dioxide 28.3 BUN 28.0 H Creatinine 1.77 H Glucose 129 H Calcium 9.3 Liver Function 01/05/25 Range/Units 06:05 Total Bilirubin 0.3 (0.2-1.0) mg/dL AST 23 (15-37) U/L ALT 12 L (14-59) U/L Alkaline Phosphatase 88 (46-116) U/L Albumin 1.9 L (3.4-5.0) g/dL Progress Note: A&P Assessment and Plan (1) Acute metabolic encephalopathy: Assessment and Plan: No acute finding on CT-Head. Likely due to dehydration and urinary tract infection. Continue with IV Rocephin. (2) Generalized weakness: Assessment and Plan: Likely from UTI. PT/OT evaluation, will get thoracic and lumbar spine, pelvis X-ray's. Will also check uric acid, CK level, CRP and ESR (3) Urinary tract infection: Assessment and Plan: continue rocephin, awaiting urine culture. Qualifiers: Hematuria presence: without hematuria Urinary tract infection type: acute cystitis Qualified Code(s): N30.00 - Acute cystitis without hematuria (4) CKD stage 3b, GFR 30-44 ml/min: Assessment and Plan: monitor daily. (5) Diabetes: Assessment and Plan: SSI as needed. Qualifiers: Chronic kidney disease stage: stage 3 (moderate) Chronic kidney disease stage 3 subtype: stage 3b (GFR 30-44) Diabetes mellitus complication detail: with chronic kidney disease Diabetes mellitus complication status: with kidney complications Diabetes mellitus terminal computer operator insulin use: with terminal computer operator use Diabetes mellitus type: type 2 Qualified Code(s): E11.22 - Type 2 diabetes mellitus with diabetic chronic kidney disease; N18.32 - Chronic kidney disease, stage 3b; Z79.4 - 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 (6) COPD (chronic obstructive pulmonary disease): Assessment and Plan: continue continuous oxygen, theophylline, breo Qualifiers: COPD type: unspecified COPD Qualified Code(s): J44.9 - Chronic obstructive pulmonary disease, unspecified (7) HTN (hypertension): Assessment and Plan: continue lisinopril, Coreg Qualifiers: Hypertension type: secondary to endocrine disorders Qualified Code(s): I15.2 - Hypertension secondary to endocrine disorders (8) HLD (hyperlipidemia): Assessment and Plan: continue statin but check CK level Qualifiers: Hyperlipidemia type: unspecified Qualified Code(s): E78.5 - Hyperlipidemia, unspecified Plan patient is a DNRCCA continue heparin for DVT prophylaxis Patient was made inpatient status and expected to cross 2 midnights Urinary Catheter Management Urinary Catheter Management Straight: Cath placed during this visit: yes Urethral indwelling: No Insertion date: 01/03/25 Insertion time: 23:15 Pure Wick: Cath placed during this visit: no
[2025-01-05] MEDS: ENSURE HP 237 ML LIQUID PO ×3 (08:59→22:12)
[2025-01-05] MEDS: ACETAMINOPHEN 500 MG TABLET 1000 MG PO ×2 (08:59→20:09)
[2025-01-05] MEDS: OMEPRAZOLE 40 MG CAPSULE.DR PO (08:59)
[2025-01-05] MEDS: PREGABALIN 75 MG CAPSULE PO (09:00)
[2025-01-05] MEDS: CETIRIZINE HCL 10 MG TABLET PO (09:00)
[2025-01-05] MEDS: ALLOPURINOL 100 MG TABLET 200 MG PO (09:00)
[2025-01-05] MEDS: SENNOSIDES 8.6 MG TABLET PO ×2 (09:00→20:10)
[2025-01-05] MEDS: CARVEDILOL 12.5 MG TABLET 25 MG PO ×2 (09:00→20:10)
[2025-01-05] MEDS: ASPIRIN 81 MG TABLET.DR PO (09:03)
[2025-01-05] MEDS: LISINOPRIL 10 MG TABLET 40 MG PO (09:03)
[2025-01-05] MEDS: ENOXAPARIN SODIUM 30 MG/0.3 ML SYRINGE SUBQ (09:03)
--- NOTE | 2025-01-05 10:57 | SWNOTE1 ---
Pt is from the [facility].
[2025-01-05] MEDS: BUDESONIDE 0.5 MG/2 ML AMPULE NEB IH ×2 (11:21→22:01)
[2025-01-05 11:24] LABS: Glucometer 185 mg/dL (74-106)
--- NOTE | 2025-01-05 11:37 | CM.NOTE ---
Rounds made with Dr. Harrington, pt continues with weakness and pain to back and lower extremities. Pt requiring 2 max assist or Emilee to transfer. Dr. Harrington discussed with pt and about further testing. No discharge today. PT and OT will continue to work with pt.
--- NOTE | 2025-01-05 11:40 | SWNOTE1 ---
AYAH sent ED note, H&P, PT/OT, labs, vitals, and nursing notes to Don at [facility]. AYAH let them know pt is not discharging today.
[2025-01-05] MEDS: HYDROXYZINE HCL 25 MG TABLET PO ×2 (13:03→20:10)
--- NOTE | 2025-01-05 14:08 | SWNOTE1 ---
SW did speak with pt's and he had concerns about [facility] not having a bed for her. SW to call and speak with Olga at [facility]. SW spoke to Olga and as of now they will have a bed for her. If she does not discharge tomorrow, SW will have to continue to check daily.
--- NOTE | 2025-01-05 14:47 | CM.NOTE ---
Important Message From Medicare discussed with pt and , signs paper for pt. Original given to patient and copy placed on pt's chart.
[2025-01-05 17:07] LABS: Glucometer 221 mg/dL (74-106)
--- NOTE | 2025-01-05 18:54 | DIETREC ---
Recommend 1800 kcal CCD diet. Also recommend 30 mL PRO-stat BID. [facility] Text to Dr. Gabo Harrington.
[2025-01-05] MEDS: MONTELUKAST SODIUM 10 MG TABLET PO (22:12)
[2025-01-05] MEDS: ATORVASTATIN CALCIUM 40 MG TABLET 80 MG PO (22:12)
[2025-01-05] MEDS: THEOPHYLLINE ANHYDROUS 400 MG TAB.ER.24H PO (22:12)
[2025-01-05 22:38] LABS: Glucometer 191 mg/dL (74-106)
[2025-01-05] MEDS: CEFTRIAXONE 1,000 MG in 0.9 % SODIUM CHLORIDE 50 ML 100 MG IV (23:30)
[2025-01-06 04:00] VITALS: BP 162/77; PULSE 67; TEMP 36.7; O2SAT 96
[2025-01-06 04:28] VITALS: PULSE 67; O2SAT 96
[2025-01-06] MEDS: ALBUTEROL SULFATE 2.5 MG/3 ML VIAL NEB IH ×2 (04:28→10:57)
[2025-01-06 05:55] LABS: Basophils Percent Auto 0.6 % (0.2-2.0); Eosinophils Absolute Auto 0.4 10^3/uL (0.0-0.7); Eosinophils Percent Auto 7.8 % (0.9-7.0); Hemoglobin 9.9 g/dL (12.0-16.0); Immature Granulocytes Abs Auto 0.05 10^3/uL (0.00-0.03); Lymphocytes Absolute Auto 1.1 10^3/uL (1.2-3.8); Lymphocytes Percent Auto 21.8 % (20.5-60.0); Mean Corpuscular HGB Conc 30.9 g/dL (29.9-35.2); Mean Corpuscular Hemoglobin 29.3 pg (26.7-34.0); Mean Corpuscular Volume 94.7 fL (81.0-99.0); Mean Platelet Volume 10.9 fL (9.5-13.5); Monocytes Absolute Auto 0.5 10^3/uL (0.3-0.8); Monocytes Percent Auto 9.8 % (1.7-12.0); Platelet Count 191 10^3/uL (150-450); Red Blood Count 3.38 10^6/uL (4.20-5.40); Red Cell Distribution Width 14.8 % (11.0-15.0); White Blood Count 5.1 10^3/uL (4.0-11.0)
[2025-01-06 06:05] LABS: Erythrocyte Sedimentation Rate 71 mm/hr (<=30)
[2025-01-06 06:19] LABS: Alanine Aminotransferase 21 U/L (14-59); Albumin Globulin Ratio 0.6; Alkaline Phosphatase 91 U/L (46-116); Aspartate Amino Transferase 23 U/L (15-37); BUN Creatinine Ratio 19.6; Bilirubin Total 0.2 mg/dL (0.2-1.0); C Reactive Protein 6.32 mg/dL (<=0.50); Calcium 9.1 mg/dL (8.5-10.1); Carbon Dioxide 28.4 mmol/L (21.0-32.0); Chloride 106 mmol/L (98-107); Creatine Kinase 41 U/L (26-192); Estimated GFR (African America 33 (>=60 mL/min/1.73m^2); Estimated GFR (Non-African Ame 27 (>=60 mL/min/1.73m^2); Globulin 3.6 g/dL; Glucose 139 mg/dL (74-106); Potassium 4.4 mmol/L (3.5-5.1); Sodium 141 mmol/L (136-145); Total Protein 5.6 g/dL (6.4-8.2); Uric Acid 9.6 mg/dL (2.6-6.0)
[2025-01-06] MEDS: HYDROXYZINE HCL 25 MG TABLET PO (06:37)
[2025-01-06] MEDS: ACETAMINOPHEN 500 MG TABLET 1000 MG PO ×2 (06:37→14:39)
[2025-01-06] MEDS: BACLOFEN 10 MG TABLET PO ×2 (06:38→14:39)
[2025-01-06] MEDS: ENSURE HP 237 ML LIQUID PO ×2 (06:38→14:39)
[2025-01-06 07:48] VITALS: BP 164/87; PULSE 72; TEMP 36.6; O2SAT 95
--- NOTE | 2025-01-06 08:55 | P.PN_ITS ---
Progress Note: Subjective Subjective Interval history: Patient is up in the chair today, her is present at bedside during exam. Patient states her arms, lower back and legs hurt. reports there has been very little improvement at the [place] [facility] with rehab. She continues to not have a good appetite, will drink ensures. She denies any recent falls. Just says her body hurts and she doesn't want to move much. No fevers or chills. Having normal, daily BM's. Exam Constitutional Vital Signs, click to edit/add: Last Vital Signs Temp 97.8 F 01/06/25 07:48 Pulse 72 01/06/25 07:48 Resp 18 01/06/25 07:48 BP 164/87 H 01/06/25 07:48 Pulse Ox 95 01/06/25 07:48 O2 Del Method Nasal Cannula 01/06/25 07:48 O2 Flow Rate 2 01/06/25 07:48 Progress Note: Objective Labs Labs: Short CBC 01/06/25 Range/Units 05:46 WBC 5.1 (4.0-11.0) 10^3/uL Hgb 9.9 L (12.0-16.0) g/dL Hct 32.0 L (36.0-48.0) % Plt Count 191 (150-450) 10^3/uL BMP 01/06/25 05:46 Sodium 141 Potassium 4.4 Chloride 106 Carbon Dioxide 28.4 BUN 35.0 H Creatinine 1.79 H Glucose 139 H Calcium 9.1 Cardiac Enzymes 01/06/25 Range/Units 05:46 Total Creatine Kinase 41 (26-192) U/L Liver Function 01/06/25 Range/Units 05:46 Total Bilirubin 0.2 (0.2-1.0) mg/dL AST 23 (15-37) U/L ALT 21 (14-59) U/L Alkaline Phosphatase 91 (46-116) U/L Albumin 2.0 L (3.4-5.0) g/dL Progress Note: A&P Assessment and Plan (1) Acute metabolic encephalopathy: (2) Generalized weakness: (3) Urinary tract infection: Qualifiers: Hematuria presence: without hematuria Urinary tract infection type: acute cystitis Qualified Code(s): N30.00 - Acute cystitis without hematuria (4) CKD stage 3b, GFR 30-44 ml/min: (5) Diabetes: Qualifiers: Diabetes mellitus type: type 2 Diabetes mellitus exterminator helper termite insulin use: with intermediate use Diabetes mellitus complication status: with kidney complications Diabetes mellitus complication detail: with chronic kidney disease Chronic kidney disease stage: stage 3 (moderate) Chronic kidney disease stage 3 subtype: stage 3b (GFR 30-44) Qualified Code(s): E11.22 - Type 2 diabetes mellitus with diabetic chronic kidney disease; N18.32 - Chronic kidney disease, stage 3b; Z79.4 - residential (current) use of insulin (6) COPD (chronic obstructive pulmonary disease): Qualifiers: COPD type: unspecified COPD Qualified Code(s): J44.9 - Chronic obstructive pulmonary disease, unspecified (7) 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 Qualified Code(s): I15.2 - Hypertension secondary to endocrine disorders (8) HLD (hyperlipidemia): Qualifiers: Hyperlipidemia type: unspecified Qualified Code(s): E78.5 - Hyperlipidemia, unspecified Urinary Catheter Management Urinary Catheter Management Straight: Cath placed during this visit: yes Urethral indwelling: No Insertion date: 01/03/25 Insertion time: 23:15 Pure Wick: Cath placed during this visit: no
[2025-01-06] MEDS: ASPIRIN 81 MG TABLET.DR PO (09:40)
[2025-01-06] MEDS: ENOXAPARIN SODIUM 30 MG/0.3 ML SYRINGE SUBQ (09:40)
[2025-01-06] MEDS: ALLOPURINOL 100 MG TABLET 200 MG PO (09:40)
[2025-01-06] MEDS: METHYLPREDNISOLONE SOD SUCC PF 125 MG/2 ML VIAL IVP (09:41)
[2025-01-06] MEDS: PREGABALIN 75 MG CAPSULE PO (09:41)
[2025-01-06] MEDS: OMEPRAZOLE 40 MG CAPSULE.DR PO (09:41)
[2025-01-06] MEDS: CARVEDILOL 12.5 MG TABLET 25 MG PO (09:41)
[2025-01-06] MEDS: LISINOPRIL 10 MG TABLET 40 MG PO (09:41)
[2025-01-06] MEDS: CETIRIZINE HCL 10 MG TABLET PO (09:41)
[2025-01-06] MEDS: SENNOSIDES 8.6 MG TABLET PO (09:41)
[2025-01-06 10:58] VITALS: PULSE 55; O2SAT 96
[2025-01-06] MEDS: BUDESONIDE 0.5 MG/2 ML AMPULE NEB IH (10:58)
--- NOTE | 2025-01-06 11:03 | SWNOTE1 ---
SW received message from case management and pt will be discharged back to [facility] today.
--- NOTE | 2025-01-06 11:03 | SWNOTE1 ---
SW notified [place].
[2025-01-06 11:26] VITALS: BP 156/76; PULSE 59; TEMP 36.6; O2SAT 95
[2025-01-06 11:51] LABS: Glucometer 245 mg/dL (74-106)
--- NOTE | 2025-01-06 12:26 | OT.DAILY ---
Occupational Therapy Daily Note OT Inpatient Daily Visit Note Start: 01/05/25 09:19 Freq: Status: Active Protocol: Document 01/06/25 12:15 [id number] (Rec: 01/06/25 12:26 [id number]) OT Visit Details Time In/Time Out Time In 10:05 Time Out 10:20 OT Treatment Plan Subjective Subjective Pt awake and alert during upon arrival. Assisted nursing staff with log rolling to assist in henny-care. Pt verbalized that she did not feel safe with bed mobility, feeling like she may fall. Objective Objective Pt agreeable and cooperative to transfer to chair. Pt has been introduced to danny lift previously to assist with transfers. Max A x2 to sit on EOB and place danny pad appropriately. Requires 5-7 VCs to assist with sitting on EOB, limited muscle use. Pt feeling unsteady while seated on EOB. Pt supported in front and back to minimize LOB or weight shifting. Pt tolerated transfer to chair well. Agreeable to complete oral hygiene while seated in chair. Mod A twisting cap from toothpaste with tactile cues for bilateral hand use. Pt required assist lifting toothbrush to mouth to complete brushing. Good sequencing with spitting and mouthwash. Pt required cues to complete steps, otherwise required extended time. Assessment Assessment Pt tolerated treatment well. Demonstrates anxious behaviors. Responds well to verbal and tactile cues. FIG CAPRIFIER in room, Pt requires 2x Max A for mobility. Patient Education Patient Education Educated on providing more effort with functional mobility during therapy to assist in progress. OT Medart Operator Timed Codes Self-Snf 15 Management minutes ( minutes) Self-Snf 1 Management units
--- NOTE | 2025-01-06 12:50 | P.DS_ITS ---
DS: Providers Provider Date of admission: 01/05/25 11:22 Primary care physician: SHANDA CLARK Attending physician on admission: Shaikh Francisco Consults: 01/04/25 Consult to Dietitian Routine Reason for consultation: nutrition 01/04/25 09:00 Occupational Therapy Eval and Treat Routine Reason for consultation: Weakness Has provider been notified: No Physical Therapy Eval and Treat Routine Reason for consultation: Weakness Has provider been notified: No 01/04/25 10:40 Occupational Therapy Eval and Treat Routine Reason for consultation: WEAKNESS Physical Therapy Eval and Treat Routine Reason for consultation: WEAKNESS Discharging clinician: Marion Harrington DS: Diagnosis Discharge Diagnosis (1) Acute metabolic encephalopathy: (2) Generalized weakness: (3) Urinary tract infection: Qualifiers: Hematuria presence: without hematuria Urinary tract infection type: acute cystitis Qualified Code(s): N30.00 - Acute cystitis without hematuria (4) Inflammatory arthritis: (5) CKD stage 3b, GFR 30-44 ml/min: (6) Diabetes: Qualifiers: Chronic kidney disease stage: stage 3 (moderate) Chronic kidney disease stage 3 subtype: stage 3b (GFR 30-44) Diabetes mellitus complication detail: with chronic kidney disease Diabetes mellitus complication status: with kidney complications 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: with mcfp use Diabetes mellitus type: type 2 Qualified Code(s): E11.22 - Type 2 diabetes mellitus with diabetic chronic kidney disease; N18.32 - Chronic kidney disease, stage 3b; Z79.4 - skilled nursing (current) use of insulin (7) COPD (chronic obstructive pulmonary disease): Qualifiers: COPD type: unspecified COPD Qualified Code(s): J44.9 - Chronic obstructive pulmonary disease, unspecified (8) 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 Qualified Code(s): I15.2 - Hypertension secondary to endocrine disorders (9) HLD (hyperlipidemia): Qualifiers: Hyperlipidemia type: unspecified Qualified Code(s): E78.5 - Hyperlipidemia, unspecified DS: Summary Hospital Course Hospital Course: 84-year-old female with chronic, recurrent UTI, severe COPD, type 2 diabetes who was just discharged from the hospital for left arm and wrist pain was brought over to ED for generalized weakness and confusion. Found to have UTI and was treated with Rocephin. Patient continued to complain about all over pain. I performed X-rays of the thoracic, lumbar, pelvis and hips which showed no acute fractures but some arthritic changes. Bilateral Venous ultrasounds were negative for DVT in both legs. ESR, CRP, and Uric acid were all elevated signifying inflammatory/gouty arthritis. She was given IV solumedrol 125 x 1 and will complete prednisone 40mg daily x 7 days. I have also prescribed Keflex at 250mg BID x 7 days for the UTI. Urine culture has not resulted at the time of discharge. Patient is more alert and has been participating in PT. She will be sent back to the [facility] for skilled rehab. Patient's was present for exam at the time of discharge, all findings and plan of care was discussed with him. He is in agreement for discharge today. Status at Discharge Functional status at discharge: uses cane/walker Overall status at discharge: patient is progressing back to baseline Time Spent with Patient Time attestation: Total time spent providing and/or coordinating discharge services: Time spent: greater than 30 minutes Exam Narrative Exam Narrative: General: Patient is alert, and oriented to person, place but just appears weak Skin: no visible rashes, or ulcers Head: atraumatic, acephalic Eyes: PERRLA, no nystagmus present, conjunctiva clear, no scleral icterus Ears: normal gross auditory acuity Neck: no masses palpated Heart: Normal rate and rhythm, no murmurs/rubs/gallops Lungs: no audible wheezes, crackles and normal breath sounds all lung valentin Abdomen: Normal audible bowel sounds, no distension, No palpable masses, no organomegaly, no rebound/guarding/ or rigidity Musculoskeletal:+1 pitting/swelling bilateral lower extremities with bilateral erythema on the anterior legs Neuro: CN II-X grossly intact Constitutional Vital Signs, click to edit/add: Last Vital Signs Temp 97.8 F 01/06/25 11:26 Pulse 59 L 01/06/25 11:26 Resp 18 01/06/25 11:26 BP 156/76 H 01/06/25 11:26 Pulse Ox 95 01/06/25 11:26 O2 Del Method Nasal Cannula 01/06/25 11:26 O2 Flow Rate 2 01/06/25 11:26 DS: Data Data Completed and Pending Labs on day of discharge: Labs from last 24 hours 01/06/25 01/06/25 01/05/25 11:49 05:46 22:26 WBC 5.1 RBC 3.38 L Hgb 9.9 L Hct 32.0 L MCV 94.7 MCH 29.3 MCHC 30.9 RDW 14.8 Plt Count 191 MPV 10.9 Neut % (Auto) 59.0 Lymph % (Auto) 21.8 [place] % (Auto) 9.8 Eos % (Auto) 7.8 H Baso % (Auto) 0.6 Neut # (Auto) 3.0 Lymph # (Auto) 1.1 L [place] # (Auto) 0.5 Eos # (Auto) 0.4 Baso # (Auto) 0.0 Abs Immat Gran (auto) 0.05 H Imm/Tot Granulo (auto) 1.0 H ESR 71 H Sodium 141 Potassium 4.4 Chloride 106 Carbon Dioxide 28.4 Anion Gap 11.0 BUN 35.0 H Creatinine 1.79 H Est GFR ( Amer) 33 L Est GFR (Non-Af Amer) 27 L BUN/Creatinine Ratio 19.6 Glucose 139 H Uric Acid 9.6 H Calcium 9.1 Total Bilirubin 0.2 AST 23 ALT 21 Alkaline Phosphatase 91 Total Creatine Kinase 41 C-Reactive Protein 6.32 H Total Protein 5.6 L Albumin 2.0 L Globulin 3.6 Albumin/Globulin Ratio 0.6 POC Glucose 245 H 191 H 01/05/25 16:57 WBC RBC Hgb Hct MCV MCH MCHC RDW Plt Count MPV Neut % (Auto) Lymph % (Auto) [place] % (Auto) Eos % (Auto) Baso % (Auto) Neut # (Auto) Lymph # (Auto) [place] # (Auto) Eos # (Auto) Baso # (Auto) Abs Immat Gran (auto) Imm/Tot Granulo (auto) ESR Sodium Potassium Chloride Carbon Dioxide Anion Gap BUN Creatinine Est GFR ( Amer) Est GFR (Non-Af Amer) BUN/Creatinine Ratio Glucose Uric Acid Calcium Total Bilirubin AST ALT Alkaline Phosphatase Total Creatine Kinase C-Reactive Protein Total Protein Albumin Globulin Albumin/Globulin Ratio POC Glucose 221 H Preliminary micro results at discharge 01/03/25 23:35 Blood Culture Result 2 - Preliminary Blood - Left Forearm NO GROWTH AT 36-48 HOURS. FINAL TO FOLLOW. 01/03/25 23:30 Blood Culture Result 1 - Preliminary Blood - Left Antecubital NO GROWTH AT 36-48 HOURS. FINAL TO FOLLOW. 01/03/25 23:10 Urine Culture - Preliminary Urine,Clean Catch Pending - Specimen sent to Replaced By [facility] Discharge Plan Discharge Disposition: Xfer SNF Condition: Fair Discharge Medications: New prednisone 20 mg tablet 20 mg PO BID 7 Days Qty: 14 0RF cephalexin 250 mg capsule 250 mg PO Q12H 7 Days Qty: 14 0RF Continued aspirin 81 mg tablet,delayed release (DR/EC) 81 mg PO DAILY atorvastatin 80 mg tablet 80 mg PO DAILY insulin lispro 100 unit/mL insulin pen 6 unit subcut BIDWM theophylline 400 mg tablet extended release 24 hr 400 mg PO .QHS montelukast 10 mg tablet 10 mg PO .QHS fluticasone furoate-vilanterol [Breo Ellipta] 200-25 mcg/dose blister with device 1 inh INHALATION Q24H pregabalin [Lyrica] 75 mg capsule 75 mg PO DAILY insulin glargine [Lantus Solostar U-100 Insulin] 100 unit/mL (3 mL) insulin pen 46 unit SUBCUT .qhs Ensure Active Protein-Muscle Liquid 1 ea PO BID Qty: 5688 0RF pantoprazole [Protonix] 40 mg tablet,delayed release (DR/EC) 40 mg PO DAILY Qty: 30 11RF lisinopril 40 mg tablet 40 mg PO DAILY loratadine 10 mg tablet 10 mg PO DAILY ondansetron 4 mg tablet,disintegrating 4 mg PO Q6H PRN (Reason: nausea and vomiting) hydroxyzine HCl 25 mg tablet 25 mg PO QID PRN (Reason: itching) sennosides [Black-Draught Lax-Senna] 8.6 mg tablet 8.6 mg PO BID carvedilol 12.5 mg Tablet 25 mg PO BID acetaminophen 500 mg tablet 1,000 mg PO .q8hr PRN (Reason: pain) albuterol 90 mcg/actuation aerosol 90 mcg inhalation Q4H PRN (Reason: sob) artificial tear([id number]) [GenTeal Tears Moderate] 0.1-0.3-0.2 % drops 2 drp ophthalmic (eye) TID PRN (Reason: dry eye(s)) baclofen 10 mg tablet 10 mg PO TID Qty: 0 0RF allopurinol 100 mg tablet 200 mg PO .QD Discontinued oxycodone 5 mg tablet 5 mg PO Q6H PRN (Reason: pain) 3 Days Qty: 10 0RF 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 Forms: Portal Instructions Follow Up Appointments: recheck BMP in 5-7 days Discharge location: [facility]
--- NOTE | 2025-01-06 13:02 | CM.NOTE ---
Rounds made with Dr. Harrington, discussed with pt and regarding AM lab work. Dr. Harrington started pt on steroids and will continue at discharge. Pt will discharge back to [facility] today for skilled therapy.
--- NOTE | 2025-01-06 13:06 | SWNOTE1 ---
SW spoke to pt and pt's in room. They have decided they want pt to return to [facility] by ambulance. SW called and set up [facility] for transport. They will be here at 2:30 to transport. SW let [facility] know time. Pt's not in room, but SW called home phone and left message. SW to send orders once they are completed.
--- NOTE | 2025-01-06 13:31 | SWNOTE1 ---
AYAH faxed over dc med rec, progress note from 01/05, labs, diagnostic imaging, PT note from today, and nursing notes from today to [facility].
--- NOTE | 2025-01-06 13:49 | SWNOTE1 ---
SW called pt's and notified him of time of transport.
--- NOTE | 2025-01-06 14:05 | SWNOTE1 ---
SW took packet to floor.
--- NOTE | 2025-01-06 15:14 | CM.NOTE ---
Saw Harrington pt's final urine culture results.
== END 2025-01-06 15:06 | DRG 689 ==
LOC: ER 01-04 01:04 → MS 01-04 04:36
PROVIDERS: Registered Nurse; Admitting Provider Internal Medicine; Emergency Provider Student in an Organized Health Care Education/Training Program; PCP Family Medicine; Visit Provider Family Medicine
DX: N30.00 Acute cystitis without hematuria (principal); G93.41 Metabolic encephalopathy; Z68.42 Body mass index [BMI] 45.0-49.9, adult; N18.32 Chronic kidney disease, stage 3b; R07.9 Chest pain, unspecified; Z79.82 Long term (current) use of aspirin; Z79.899 Other long term (current) drug therapy; M25.532 Pain in left wrist; Z90.710 Acquired absence of both cervix and uterus; Z90.49 Acquired absence of other specified parts of digestive tract; R11.0 Nausea; M19.032 Primary osteoarthritis, left wrist; Z87.440 Personal history of urinary (tract) infections; J44.9 Chronic obstructive pulmonary disease, unspecified; E86.0 Dehydration; M79.602 Pain in left arm; E11.22 Type 2 diabetes mellitus with diabetic chronic kidney disease; Z79.4 Long term (current) use of insulin; M54.16 Radiculopathy, lumbar region; K21.9 Gastro-esophageal reflux disease without esophagitis; M54.12 Radiculopathy, cervical region; R53.1 Weakness; Z79.891 Long term (current) use of opiate analgesic; E66.01 Morbid (severe) obesity due to excess calories; I15.2 Hypertension secondary to endocrine disorders; E78.00 Pure hypercholesterolemia, unspecified; Z66 Do not resuscitate; Z87.442 Personal history of urinary calculi; M06.4 Inflammatory polyarthropathy
CPT/HCPCS: 36415; 70450; 71045; 72070; 72100; 73110; 73523; 80048; 80053; 80198; 80320; 81001; 82550; 82948; 83690; 83880; 84484; 84550; 85025; 85027; 85610; 85652; 86140; 87040; 87086; 87804; 87811; 93005; 93970; 94640; 94761; 96365; 96372; 96374; 96375; 96376; 97161; 97162; 97165; 97530; 97535; 99285; G0378; J0360; J0696; J0780; J1644; J1650; J2270; J2405; J2919

== ENCOUNTER 2025-01-07 20:05 | Observation (INO) | payer MEDICARE, SELFPAY ==
[2025-01-07 20:04] VITALS: BP 195/89; PULSE 70; TEMP 36.7; O2SAT 96; BMI 43.3
[2025-01-07 20:08] VITALS: O2SAT 97
--- NOTE | 2025-01-07 20:12 | ECG_ITS ---
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
--- OUTSIDE RECORDS SUMMARY | 2025-01-07 20:13 | XMS_ITS | CCD ---
Author Organization [facility] Care Team Providers Care Retail Field Merchandiser Name Role Phone ELTAHAWY, EHAB A Attending Unavailable ELTAHAWMerrick, EHAB A Admitting Unavailable FURLOPOORNIMA, FERNIE Referring Unavailable FURLONG, FERNIE Primary Care [...] STERN ., DR LUISA Page Admitting Unavailable ADARSHHAWY, EHAB Attending Unavailable DARELL SYLVESTER Attending Unavailable DO Fernie Clark Primary Care Provider MD Gia Conley Attending Provider FURLONG, FERNIE Ricketts Referring Unavailable FURLONG, FERNIE Ricketts Primary Care Unavailable FURLONG, FERNIE Ricketts Referring Unavailable FURLONG, FERNIE Ricketts Primary Care Unavailable FURLONG, FERNIE Ricketts Referring Unavailable FURLONG, FERNIE Ricketts Primary Care Unavailable Furlong Fernie CAMACHO Primary Care Provider Kirsten RAND, Christian Rodríguez Attending Unavailable Kirsten RAND, Christian Rodríguez Attending Unavailable Kirsten RAND, Christian Rodríguez Attending Unavailable Kirsten RAND, Andgolden Rodríguez Attending Unavailable Furlong Fernie CAMACHO Primary Care Provider Gaetano Viera DO Attending Provider Unavailab le AMBER, FERNIE Ricketts Referring Unavailable FURLONG, FERNIE Ricketts [...] Unavailable FURLONG, FERNIE Ricketts Referring Unavailable FURLONG, FRENIE Ricketts Primary Care Unavailable TAMMY, GIA Referring [...] FURLONG, FERNIE Ricketts Primary Care Unavailable FURLONG, FERNEI Jamarcus Referring Unavailable FURLONG, FERNIE Ricketts Primary [...] Unavailable FURLONG, FERNIE Jamarcus Primary Care Unavailable DANIEL GUERRERO Admitting Unavailable DANIEL GUERRERO Attending Unavailable TRACYLONG, FERNIE Jamarcus Referring Unavailable FURLONG, FERNIE Jamarcus [...] Unavailable FURLONG, FERNIE G Primary Care Unavailable León Nina DO Attending Provider FURLONG, FERNIE G Attending Unavailable FURLONG, FERNIE G Referring Unavailable FURLONG, FERNIE G Primary Care Unavailable FURLONG, FERNIE G Attending Unavailable FURLONG, FERNIE G Referring Unavailable FURLONG, FERNIE G Primary Care Unavailable FURLONG, FERNIE G Referring Unavailable FURLONG, FERNIE G Primary Care Unavailable FURLONG, FERNIE G Referring Unavailable FURLONG, FERNIE G Primary Care Unavailable León Nina Attending Unavailable León Nina Admitting Unavailable Furlong, Fernie Primary Care Unavailable Gaetano Viera Admitting Unavailable Furlong, Fernie Primary Care Unavailable Gaetano Viera Attending Unavailable Allergies Allergy Classification Reported Allergen(s) Allergy Type Date of Onset Reaction(s) Facility Adhesive Tape (1 source) Adhesive Tape Substance Allergy 04-24-20 13 [facility] Povidone-Iodine (1 source) Povidone-Iodine Drug Allergy 04-24-20 13 [facility] Sulfonamides (antibiotic) (1 source) Sulfonamides (Antibiotic) Drug Allergy 04-24-20 13 [facility] Tetracyclines (antibiotic) (1 source) Tetracyclines Drug Allergy 04-24-20 13 [facility] (20 sources) Povidone-Iodine; Translations: [POVIDONE-IODINE] Drug Allergy 11-25-19 15 [facility] Repository (10 sources) Sulfonamides (Antibiotic) Propensity to adverse reactions rash [place] Other (14 sources) Tetracycline Drug Allergy 11-16-19 24 [facility] (13 sources) Adhesive 1 x6yd Drug allergy 11-08-20 23 [facility] (13 sources) Amlodipine & Diet Manage Prod Drug allergy 11-08-20 23 [facility] (2 sources) Povidone-Iodine; Translations: [Betadine] Drug Allergy 04-23-20 13 [facility] Repository (20 sources) Contrast media; Translations: [RED DYE] Drug allergy (disorder) 05-04-20 17 [facility] Repository (5 sources) Desonide Drug Allergy 04-23-20 13 [facility]ository (1 source) Sulfonamides (Antibiotic) Drug allergy (disorder) 04-23-[address] [facility] Repository (1 source) Tetracycline Drug Allergy 04-23-20 13 [facility] (20 sources) Adhesive agent; Translations: [ADHESIVE] Propensity to adverse reactions to drug (disorder) 11-25-19 15 Itching, Other (See Comments) [facility] Repository (20 sources) Sulfonamides (Antibiotic); Translations: [SULFA (SULFONAMIDE ANTIBIOTICS)] Propensity to adverse reactions to drug (disorder) 11-25-19 15 [facility] Repository (20 sources) Tetracyclines; Translations: [TETRACYCLINES] Propensity to adverse reactions to drug (disorder) 11-25-19 15 [facility] Repository (20 sources) dilTIAZem; Translations: [DILTIAZEM] Drug Allergy 09-01-20 [facility] Repository (20 sources) Linagliptin; Translations: [LINAGLIPTIN] Drug Allergy 09-01-20 [facility] Repository (20 sources) ADHESIVE TAPE-SILICONES; Translations: [...] as needed Orally TWICE A DAY Active [id number] 200 actuat albuterol 0.09 mg/actuat metered dose [...] (20 sources) Xanthine Oxidase Inhibitor Start: 06-16-2024 End: 12-10-2024 Allopurinol 100 mg tablet Active 0 .ROUTE .COMPLEX 180 December 10, 2024 9:00am TAKE 2 TABLETS ONCE DAILY Start: 05-01-2024 [...] morning. Active take 2 tablets by mo [facility] every twenty-four hours Allopurinol 100 MG 2 tablet Orally Once a day for 90 days Active ASA 81 mg (10 sources) take 1 tablet by mouth once daily ASA 81 mg 1 Tablet Oral daily Active atorvastatin 80 mg oral tablet (20 sources) HMG-CoA Reductase Inhibitor Start: take 1 tablet by mouth once daily Atorvastatin 80 mg tablet Active 80 MG PO Daily April 30, 2024 11:00pm Start: 05-16-2023 End: 04-29-2024 take 1 tablet by mouth in the morning atorvastatin (LIPITOR) 80 mg tablet Take 1 tablet (80 mg total) by mouth in the morning. 90 tablet 3 04/29/2024 Active baclofen 10 mg oral tablet (20 sources) gamma-Aminobutyric Acid-ergic Agonist Start: 11-26-2023 End: 05-27-2024 baclofen (LIORESAL) 10 mg tablet TAKE 1 TABLET NIGHTLY 90 tablet 3 10/14/2024 Active take 1 tablet by mouth three giles es daily baclofen (LIORESAL) 10 mg tablet Take 1 tablet (10 mg total) by mouth 3 (three) times a day. 0 Active biotin 10 mg oral tablet (20 sources) take 1 tablet by willa th once daily biotin 10 mg tablet Take 10 mg by mouth once daily. Active take 1 capsule by [facility] every twenty-four hours Biotin Maximum Strength 5000 [...] (20 sources) alpha-Adrenergic Micki, beta-Adrenergic Micki Start: 05-01-2024 take 1 tablet by mouth twice daily Carvedilol 6.25 mg tablet Active 6.25 MG PO Twice daily April 30, 2024 11:00pm Start: 04-16-2023 End: 04-09-2024 carvediloL (COREG) 6.25 mg t ablet take 1 tablet twice a day 180 [...] 1 tablet by mouth once daily. Active diaper,brief,adult,d isposable (ALWAYS DISCREET) misc (20 sources) Start: 02-25-2024 [...] April 30, 2024 11:00pm Fish,Bora,Flax Oils-Om3,6,9n o1 ([place] 3-6-9) 1,200 mg capsule (3 sources) Start: 05-01-2024 Fish,Bora,Flax Oils-Om3,6,9no1 ([place] 3-6-9) 1,200 mg capsule Active CAP PO April 30, 2024 11:00pm Start: 05-01-2024 Fish,Bora,Flax Oils-Om3,6,9no1 ([place] 3-6-9) 1,200 mg capsule Active CAP PO May 01, 2024 12:00am Fluticasone Furoate-Vilanterol (20 sources) Corticosteroid, beta2-Adrenergic Agonist Start: 05-01-2024 [...] Start: 05-01-2024 take 1 tablet by mouth twice daily at mealtime Glucosamine Sulfate (Glucosamine) 500 mg tablet Active 500 MG PO Twice daily April 30, 2024 11:00pm administer with meals Glucosamine Chond Triple/Vit D - (10 sources) [...] with long-term current use of insulin ([facility]) Inject 46 Units under the skin in [...] Lispro (Humalog U-100 Insulin) 100 unit/mL solution (3 sources) Start: 05-01-2024 inject 6 [IU] by [...] tablet (20 sources) Leukotriene Receptor Antagonist Start: 05-01-2024 take 1 tablet by mouth once daily at bedtime Montelukast 10 mg tablet Active 10 MG PO Daily at bedtime April 30, 2024 11:00pm Start: 04-04-2023 End: 03-31-2024 montelukast (SINGULAIR) 10 m g tablet take 1 tablet daily 90 tablet 3 03/31/2024 Active Multi For Her 50+ - (10 sources) Multi For Her 50 + - Orally Active suvywelf-jqsy-FA-calcium &mi ns (THERAGRAN-M) 9 mg iron-400 mcg tablet (20 sources) xikdqrdf-fzzs-ZQ -calcium &mins (THERAGRAN-M) 9 mg iron-400 mcg tablet Take 1 tablet by mouth in the morning. Active vizozeab-mtso-WN -calcium &mins (THERAGRAN-M) 9 mg iron-400 mcg tablet Take 1 tablet by mouth in the morning. 0 Active Multivitamin (Daily Multi-Vitamin) tablet (3 sources) Start: 05-01-2024 take 1 tablet by [...] 5 days. 20 tablet 12/10/2024 12/15/2024 Active [place] 3-6-9 Complex - (10 sources) [place] 3-6-9 Comp fawad - Orally Active omega-3 [...] Discontinued (Therapy completed) take 1 capsule by [facility] every twenty-four hours Omeprazole 20 MG 1 cap(s) Orally Once a day Active take 1 capsule by [facility] every twelve hours Omeprazole 20 MG 1 [...] Converting Enzyme Inhibitor Start: 11-17-19 End: 11-03-20 take 1 capsule by mouth once daily Ramipril 10 mg capsule Active 10 MG PO Daily April 30, 2024 11:00pm 1000 ml sodium chloride 9 mg/ml injection [...] (20 sources) Methylxanthine Start: 03-19-2023 End: 09-11-2024 take 1 tablet by mouth once daily Theophylline 400 mg tablet extended release 24 hr Active 400 MG PO Daily April 30, 2024 11:00pm traMADol hydrochloride 50 mg oral tablet (20 [...] morning. 05/27/2024 Discontinued (Therapy completed) estrogens, conjugated (care home) 0.625 mg/ml vaginal cream (7 sources) [...] disease (20 sources) Atherosclerotic heart disease of [place] coronary artery without angina pectoris; Translations: [Coronary [...] Genitourinary symptoms and ill-defined conditions (2 sources) Urinary incontinence; Translations: [Unspecified urinary incontinence] Onset: 4 02-25-2024 Chronic Hypertension with [...] of inflammatory arthritis and tophaceous disease] Onset: 4 05-01-2024 Episodic Other upper respiratory disease (20 sources) Perennial allergic rhinitis; Translations: [Other allergic rhinitis] Onset: 2 09-27-2024 Chronic Residual codes; unclassified (20 sources) Obstructive sleep apnea syndrome; Translations: [Obstructive sleep apnea (adult) (pediatric)] Onset: 2 09-01-2022 Chronic Residual codes; unclassified (1 source) Pain, unspecified; Translations: [Pain, unspecified] Onset: 5 Episodic Spondylosis; intervertebral disc disorders; other back [...] Unclassified (1 source) Outpatient Infusion Onset: 4 Unclassified (1 source) Face to Face for incont supplies Onset: 4 Urinary tract infections (7 sources) Acute cystitis; Translations: [Acute cystitis with hematuria] Onset: 5 12-27-2024 Episodic Past or Other Problems Problem Classification Problem Date Documented Da te Episodic/Chronic Allergic reactions (20 sources) Environmental allergy; Translations: [Other allergy status, other than to drugs and biological substances] Onset: 09-01-2022 2 Episodic Biliary tract disease (20 sources) Disorder [...] 09-01-2022 09-01-2022 Episodic Other aftercare (3 sources) 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; 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] Onset: 11-11-2022 Episodic [...] Translations: [Paresthesia of skin] 09-04-2024 Episodic Other nervous system disorders (1 source) Ataxia, unspecified; Translations: [Ataxia, unspecified] Onset: 02-25-2024 Episodic Other nutritional; endocrine; and metabolic disorders (8 sources) 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 inflammatory arthritis and tophaceous disease; Translations: [Other abnormal blood chemistry] Onset: 12-27-2021 Resolved: 07-20-2022 Episodic Other upper respiratory infections (1 source) Rhinitis; Translations: [Acute nasopharyngitis [common cold]] 05-27-2024 Episodic Screening and history of mental health and substance abuse codes (1 source) Patient encounter status; Translations: [Encounter for screening for depression] 01-08-2024 Episodic Unclassified (1 source) LOW BACK PAIN, UNSPECIFIED; Translations: [LOW BACK PAIN, UNSPECIFIED] Onset: 08-02-2022 Results Test Name Value Interpretation Reference Range Facility Urine Cultureon 01-03-2025 Bacteria identified Cx Nom (U) <10,000 colonies/ml mixed bacterial skin contaminants including mixed gram negative bacilli - 1 Day PERFORMED BY: [place] [address] PATHOLOGIST CUTTER DOWN MARIO PUTNAM M.D. Normal [facility] Comment on above: Performed By: #### C UU #### [address] Urine Cultureon 11-20-2024 Bacteria identified Cx Nom (U) ORGANISM: Escherichia coli (O:ESCCOL) Roca Count >100,000 Aerobic URBAN Charge (NMIC56) -- [...] RESISTANT TO ALL B-LACTAM DRUGS. PERFORMED BY: [place] [address] PATHOLOGIST CUTTER DOWN MARIO PUTNAM M.D. Normal [facility] Comment on above: Performed By: #### C UU #### [address] Urine cultureOrdered By: Sanket Viera on 11-20-2024 Bacteria identified Cx Nom (U) Escherichia coli Abnormal [facility] MAGNESIUMon 11-17-2024 Magnesium [Mass/Vol] 1.8 mg/dL Normal 1.8-2.6 [facility] Comment on above: Performed By: #### 1 9123-9 ####[facility] ([id number])[address] [place] [address] MAGNESIUMon 11-10-2024 Magnesium [Mass/Vol] 1.8 mg/dL Normal 1.8-2.6 [facility] Comment on above: Performed By: #### 1 9123-9 ####[facility] ([id number])[address] [place] [address] MAGNESIUMon 11-03-2024 Magnesium [Mass/Vol] 1.7 mg/dL Low 1.8-2.6 [facility] Comment on above: Performed By: #### 1 9123-9 ####[facility] ([id number])[address] [place] [address] MAGNESIUMon 10-27-2024 Magnesium [Mass/Vol] 1.8 mg/dL Normal 1.8-2.6 [facility] Comment on above: Performed By: #### 1 9123-9 ####[facility] ([id number])[address] [place] [address] MAGNESIUMon 10-20-2024 Magnesium [Mass/Vol] 1.9 mg/dL Normal 1.8-2.6 [facility] Comment on above: Performed By: #### 1 9123-9 ####[facility] ([id number])[address] [place] [address] MAGNESIUMon 10-13-2024 Magnesium [Mass/Vol] 1.8 mg/dL Normal 1.8-2.6 [facility] Comment on above: Performed By: #### 1 9123-9 ####[facility] ([id number])[address] [place] [address] MAGNESIUMon 10-06-2024 Magnesium [Mass/Vol] 1.7 mg/dL Low 1.8-2.6 [facility] Comment on above: Performed By: #### 1 9123-9 ####[facility] ([id number])[address] [place] [address] MAGNESIUMon 09-29-2024 Magnesium [Mass/Vol] 1.7 mg/dL Low 1.8-2.6 [facility] Comment on above: Performed By: #### 1 9123-9 ####[facility] ([id number])[address] [place] [address] Glucose Glucometer (BldC) [M ass/Vol]on 09-26-2024 Glucose [Mass/Vol] 154 mg/dL High 65-99 [facility] Surgical Pathologyon 024 Surgical Pathology Normal [facility] Comment on above: Result Comment: [facility] [address] [place] [address] Surgical Pathology ConsultationPatient Name:ADORE WOLFF:1940 (Age: 83)Gender:FTaken:4Reported:10/01/2024hysician(s):Daniel Guerrero MD ([phone])Copy To: Rec. #:[id number]: #[id number] Pathologic Diagnosis1. Duodenum, second portion, biopsy: Duodenal mucosa with no significant diagnostic abnormality. No evidence of celiac disease.2. Duodenum, bulb, biopsy: Ectopic gastric mucosa.3. Stomach, polypectomy: Fundic gland polyp.4. Esophagus, distal, biopsy: Junctional mucosa with no significant diagnostic abnormality. No evidence of intestinal metaplasia. Report Electronically Signed Out10/01/2024paula Coto MDInterpretation performed at [facility], [address] [place] [address], License number: [id number].Clinical History Ross's esophagus.Gross Description1. Received in formalin labeled [facility], second portion of duodenum are two light abbott soft tissue bits, 0.2 cm each. The specimen is filtered and entirely submitted in a single cassette. (1, ns, [id number],m3) DM.2. .Received in formalin labeled [facility], duodenal bulb biopsies are three light abbott soft tissue bits, 0.2 cm each. The specimen is filtered and entirely submitted in a single cassette. (1, ns, [id number],m3) DM.3. Received in formalin labeled [facility], fundic gland polyp is a light abbott soft tissue bit, 0.3 cm. The specimen is filtered and entirely submitted in a single cassette. (1, ns, [id number],m3) DM.4. Received in formalin labeled [facility], distal esophageal biopsy are three pale-abbott soft tissue bits, 0.2 cm each. The specimen is filtered and entirely submitted in a single cassette. (1, ns, [id number],m3) DM.dm/09/27/2024GRSpecimen(s) Received1: Second portion of duodenum biopsies2: Duodenal bulb biopsy3: Fundic gland polyp4: Esophageal distal biopsyFee Codes(s):1; 688973; 594776; 323715; 60411 MAGNESIUMon 09-22-2024 Magnesium [Mass/Vol] 1.8 mg/dL Normal 1.8-2.6 [facility] Comment on above: Performed By: #### 1 9123-9 ####[facility] ([id number])[address] [place] [address] MAGNESIUMon 09-15-2024 Magnesium [Mass/Vol] 1.8 mg/dL Normal 1.8-2.6 [facility] Comment on above: Performed By: #### 1 9123-9 ####[facility] ([id number])[address] [place] [address] MAGNESIUMon 09-08-2024 Magnesium [Mass/Vol] 1.7 mg/dL Low 1.8-2.6 [facility] Comment on above: Performed By: #### 1 9123-9 ####[facility] ([id number])[address] [place] [address] MAGNESIUMon 09-01-2024 Magnesium [Mass/Vol] 1.8 mg/dL Normal 1.8-2.6 [facility] Comment on above: Performed By: #### 1 9123-9 ####[facility] ([id number])[address] [place] [address] MAGNESIUMon 08-25-2024 Magnesium [Mass/Vol] 1.6 mg/dL Low 1.8-2.6 [facility] Comment on above: Performed By: #### 1 9123-9 ####[facility] ([id number])[address] [place] [address] MAGNESIUMon 08-18-2024 Magnesium [Mass/Vol] 1.6 mg/dL Low 1.8-2.6 [facility] Comment on above: Performed By: #### 1 9123-9 ####[facility] ([id number])[address] [place] [address] MAGNESIUMon 08-11-2024 Magnesium [Mass/Vol] 1.6 mg/dL Low 1.8-2.6 [facility] Comment on above: Performed By: #### 1 9123-9 ####[facility] ([id number])[address] [place] [address] 190[address] MAGNESIUMon 08-04-2024 Magnesium [Mass/Vol] 1.5 mg/dL Low 1.8-2.6 [facility] Comment on above: Performed By: #### 1 9123-9 ####[facility] ([id number])[address] [place] [address] MAGNESIUMon 07-28-2024 Magnesium [Mass/Vol] 1.5 mg/dL Low 1.8-2.6 [facility] Comment on above: Performed By: #### 1 9123-9 ####[facility] ([id number])[address] [place] [address] MAGNESIUMon 07-21-2024 Magnesium [Mass/Vol] 1.6 mg/dL Low 1.8-2.6 [facility] Comment on above: Performed By: #### 1 9123-9 ####[facility] ([id number])[address] [place] [address] MAGNESIUMon 07-15-2024 Magnesium [Mass/Vol] 1.5 mg/dL Low 1.8-2.6 [facility] Comment on above: Performed By: #### 1 9123-9 ####[facility] ([id number])[address] [place] [address] 916[address] MAGNESIUMon 07-07-2024 Magnesium [Mass/Vol] 1.6 mg/dL Low 1.8-2.6 [facility] Comment on above: Performed By: #### 1 9123-9 ####[facility] ([id number])[address] [place] [address] MAGNESIUMon 06-30-2024 Magnesium [Mass/Vol] 1.6 mg/dL Low 1.8-2.6 [facility] Comment on above: Performed By: #### 1 9123-9 ####[facility] ([id number])[address] [place] [address] MAGNESIUMon 06-23-2024 Magnesium [Mass/Vol] 1.7 mg/dL Low 1.8-2.6 [facility] Comment on above: Performed By: #### 1 9123-9 ####[facility] ([id number])[address] [place] [address] MAGNESIUMon 06-16-2024 Magnesium [Mass/Vol] 1.7 mg/dL Low 1.8-2.6 [facility] Comment on above: Performed By: #### 1 9123-9 ####[facility] ([id number])[address] [place] [address] MAGNESIUMon 06-09-2024 Magnesium [Mass/Vol] 1.7 mg/dL Low 1.8-2.6 [facility] Comment on above: Performed By: #### 1 9123-9 ####[facility] ([id number])[address] [place] [address] 25484 MAGNESIUMon 06-02-2024 Magnesium [Mass/Vol] 1.6 mg/dL Low 1.8-2.6 [facility] Comment on above: Performed By: #### 1 9123-9 ####[facility] ([id number])[address] [place] [address] URINE CULTUREon 05-30-2024 Bacteria identified Cx Nom [...] F TRIMETH/SULFAMETHOXAZOL E S <=/ F Susceptible [facility] Comment on above: Performed By: #### 6 30-4 #### [facility] ([id number]) [address] [place] [address], [address] [place] [address] POCT Hemoglobin A1con 2023 HbA1c (Bld) [Mass fraction] 7.1 g/dL Abnormal 4 - 7 g/dL [facility] Interpretation and review of laboratory results Abnormal [facility] POCT urinalysis dipstick onl yon 05-27-2024 Appearance (U) cloudy [facility] External Poct Urine Bilirubin Negative [facility] External Poct Urine Blood Trace [facility] External Poct Urine Color yellow [facility] External Poct Urine Glucose Negative [facility] External Poct Urine Ketones Negative [facility] External Poct Urine Leukocyte Esterase Moderate [facility] External Poct Urine Nitrite Negative [facility] External Poct Urine Ph 5.5 [facility] External Poct Urine Protein 3+ [facility] Comment on above: >=300 External Poct Urine Specific [place] 1.025 [facility] External Poct Urine Urobilinogen 0.2 [facility] URINE CULTUREon 05-27-2024 Bacteria identified Cx Nom (U) CULTURE RESULTS MULTIPLE SPECIES PRESENT. PROBABLE COLLECTION CONTAMINATION. SUGGEST REPEAT SPECIMEN. Normal [facility] Comment on above: Performed By: #### 6 30-4 #### [facility] ([id number]) [address] [facility], [address] [place] [address] MAGNESIUMon 05-26-2024 Magnesium [Mass/Vol] 1.6 mg/dL Low 1.8-2.6 [facility] Comment on above: Performed By: #### 1 9123-9 ####[facility] ([id number])[address] [place] [address] MAGNESIUMon 05-19-2024 Magnesium [Mass/Vol] 1.7 mg/dL Low 1.8-2.6 [facility] Comment on above: Performed By: #### 1 9123-9 ####[facility] ([id number])[address] [place] [address] MAGNESIUMon 05-12-2024 Magnesium [Mass/Vol] 1.6 mg/dL Low 1.8-2.6 [facility] Comment on above: Performed By: #### 1 9123-9 ####[facility] ([id number])[address] [facility], [address] [address] MAGNESIUMon 05-05-2024 Magnesium [Mass/Vol] 1.4 mg/dL Low 1.8-2.6 [facility] Comment on above: Performed By: #### 1 9123-9 ####[facility] ([id number])[address] [place] [address] MAGNESIUMon 04-28-2024 Magnesium [Mass/Vol] 1.5 mg/dL Low 1.8-2.6 [facility] Comment on above: Performed By: #### 1 9123-9 ####[facility] ([id number])[address] [place] [address] COMPLETE BLOOD COUNTon 04-21 Erythrocyte distribution width (RBC) [Ratio] 16.6 % High 11.5-15.0 [facility] Comment on above: Performed By: #### C BC, UPCR, FEPR, 10215-2, RENAL, 3084-1, 2276-4, 2731-8, 75046-5 ####[facility] ([id number])[address], [address] [place] [address] Hematocrit (Bld) [Volume fraction] 33.8 % Low 35-47 [facility] Comment on above: Performed By: #### C BC, UPCR, FEPR, 83862-9, RENAL, 3084-1, 2276-4, 2731-8, 82703-4 ####[facility] ([id number])[address], [address] [place] [address] Hemoglobin (Bld) [Mass/Vol] 11.0 g/dL Low 11.7-15.5 [facility] Comment on above: Performed By: #### C BC, UPCR, FEPR, 71640-5, RENAL, 3084-1, 2276-4, 2731-8, 04311-5 ####[facility] ([id number])[address], [address] [place] [address] 24387 MCH (RBC) [Entitic mass] 30.0 pg Normal 27-34 [facility] Comment on above: Performed By: #### C BC, UPCR, FEPR, 33531-1, RENAL, 3084-1, 2276-4, 2731-8, 38997-7 ####[facility] ([id number])[address], [address] [place] [address] MCHC (RBC) [Mass/Vol] 32.7 g/dL Normal 32-36 [facility] Comment on above: Performed By: #### C BC, UPCR, FEPR, 34626-9, RENAL, 3084-1, 2276-4, 2731-8, 45246-5 ####[facility] ([id number])[address], [address] [place] [address] MCV (RBC) [Entitic vol] 92 fL Normal 80-100 [facility] Comment on above: Performed By: #### C BC, UPCR, FEPR, 93404-4, RENAL, 3084-1, 2276-4, 2731-8, 00319-7 ####[facility] ([id number])[address], [address] [place] [address] Platelet mean volume (Bld) [Entitic vol] 9.5 fL Normal 7-12 [facility] Comment on above: Performed By: #### C BC, UPCR, FEPR, 22613-0, RENAL, 3084-1, 2276-4, 2731-8, 03197-2 ####[facility] ([id number])[address], [address] [address] Platelets (Bld) [#/Vol] 182 10*3/uL Normal 150-450 [facility] Comment on above: Performed By: #### C BC, UPCR, FEPR, 51313-0, RENAL, 3084-1, 2276-4, 2731-8, 58833-2 ####[facility] ([id number])[address], [address] [place] [address] RBC COUNT 3.68 X10E12/L Low 3.80-5.20 [facility] Comment on above: Performed By: #### C BC, UPCR, FEPR, 94224-9, RENAL, 3084-1, 2276-4, 2731-8, 94962-4 ####[facility] ([id number])[address], [address] [address] WBC (Bld) [#/Vol] 6.2 10*3/uL Normal 4.0-11.0 [facility] Comment on above: Performed By: #### C BC, UPCR, FEPR, 53513-3, RENAL, 3084-1, 2276-4, 2731-8, 84726-0 ####[facility] ([id number])[address], [address] [place] [address] FERRITINon 04-21-2024 Ferritin [Mass/Vol] 113 ng/mL Normal 11-307 [facility] Comment on above: Performed By: #### C BC, UPCR, FEPR, 08942-5, RENAL, 3084-1, 2276-4, 2731-8, 16128-9 ####[facility] ([id number])[address] [address], [place] [address] IRON PROFILEon 04-21-2024 Iron [Mass/Vol] 56 ug/dL Normal 50-170 [facility] Comment on above: Performed By: #### C BC, UPCR, FEPR, 87057-9, RENAL, 3084-1, 2276-4, 2731-8, 43027-3 ####[facility] ([id number])[address] [address] [place] [address] IRON BINDING 307 ug/dL Normal 250-425 [facility] Comment on above: Performed By: #### C BC, UPCR, FEPR, 56089-8, RENAL, 3084-1, 2276-4, 2731-8, 85311-1 ####[facility] ([id number])[address] [address] [facility] [place] [address] IRON SATURATION 18 % SATURATION Normal 15-50 [facility] Comment on above: Performed By: #### C BC, UPCR, FEPR, 02567-5, RENAL, 3084-1, 2276-4, 2731-8, 58830-5 ####[facility] ([id number])[address] [place] [address] MAGNESIUMon 04-21-2024 Magnesium [Mass/Vol] 1.4 mg/dL Low 1.8-2.6 [facility] Comment on above: Performed By: #### C BC, UPCR, FEPR, 79186-6, RENAL, 3084-1, 2276-4, 2731-8, 09791-4 ####[facility] ([id number])[address], [address] [place] [address] PROTEIN CREAT RATIOon 2023 RANDOM URINE PROTEIN 470 mg/L High <120 [facility] Comment on above: Performed By: #### C BC, UPCR, FEPR, 03534-1, RENAL, 3084-1, 2276-4, 1-8, 16746-7 ####[facility] ([id number])[address] [address] U/PRO/HOSPITAL NURSING ASSISTANT RATIO CALC 0.50 High <0.2 [facility] Comment on above: Result Comment: Neph rotic Syndrome is associated with ratios >3.5 Performed By: #### C BC, UPCR, FEPR, 11088-2, RENAL, 3084-1, 2276-4, 2731-8, 13030-2 ####[facility] ([id number])[address], [address] [place] [address] URINE CREATININE,RDM 94.29 mg/dL Normal [facility] Comment on above: Performed By: #### C BC, UPCR, FEPR, 34976-2, RENAL, 3084-1, 2276-4, 2731-8, 75276-1 ####[facility] ([id number])[address], [address] [place] [address] Parathyrin.intact [Mass/Vol] on 06-10-2024 PTH INTACT 168 pg/mL High 12-88 [facility] Comment on above: Performed By: #### C BC, UPCR, FEPR, 26917-2, RENAL, 3084-1, 2276-4, 2731-8, 19746-2 ####[facility] ([id number])[address], [place] [address] RENAL PANELon 04-21-2024 Albumin [Mass/Vol] 3.7 g/dL Normal 3.2-5.3 [facility] Comment on above: Performed By: #### C BC, UPCR, FEPR, 62343-5, RENAL, 3084-1, 2276-4, 2731-8, 16183-7 ####[facility] ([id number])[address], [address], [place] [address] Anion gap [Moles/Vol] 11 mmol/L Normal 5-15 [facility] Comment on above: Performed By: #### C BC, UPCR, FEPR, 15723-2, RENAL, 3084-1, 2276-4, 2731-8, 23703-4 ####[facility] ([id number])[address], [place] [address] Calcium [Mass/Vol] 8.9 mg/dL Normal 8.5-10.5 [facility] Comment on above: Performed By: #### C BC, UPCR, FEPR, 60633-4, RENAL, 3084-1, 2276-4, 2731-8, 91273-3 ####[facility] ([id number])[address], [place] [address] Chloride [Moles/Vol] 106 mmol/L Normal 98-109 [facility] Comment on above: Performed By: #### C BC, UPCR, FEPR, 93369-6, RENAL, 3084-1, 2276-4, 2731-8, 93974-6 ####[facility] ([id number])[address], [address], [place] [address] CO2 [Moles/Vol] 26 mmol/L Normal 22-32 [facility] Comment on above: Performed By: #### C BC, UPCR, FEPR, 27519-2, RENAL, 3084-1, 2276-4, 2731-8, 21546-2 ####[facility] ([id number])[address], [address], [place] [address] Creatinine [Mass/Vol] 1.78 mg/dL High 0.40-1.00 [facility] Comment on above: Result Comment: METH OD TRACEABLE TO IDMS STANDARD Performed By: #### C BC, UPCR, FEPR, 68724-6, RENAL, 3084-1, 2276-4, 2731-8, 89180-2 ####[facility] ([id number])[address] [address] [place] [address] GFR/1.73 sq M.predicted among non-blacks MDRD (S/P/Bld) [Vol rate/Area] 28 mL/min/{1.73_m2} Low >59 [facility] Comment on above: Result Comment: Repo rted eGFR is based on theCKD-EPI 2020 equation that doesnot use a race coefficient. Performed By: #### C BC, UPCR, FEPR, 96083-0, RENAL, 3084-1, 2276-4, 2731-8, 60864-8 ####[facility] ([id number])[address], [address], [place] [address] Glucose [Mass/Vol] 157 mg/dL High 65-99 [facility] Comment on above: Performed By: #### C BC, UPCR, FEPR, 51180-2, RENAL, 3084-1, 2276-4, 2731-8, 36863-2 ####[facility] ([id number])[address] [address], [place] [address] Phosphate [Mass/Vol] 3.8 mg/dL Normal 2.4-4.9 [facility] Comment on above: Performed By: #### C BC, UPCR, FEPR, 06876-3, RENAL, 3084-1, 2276-4, 2731-8, 50929-6 ####[facility] ([id number])[address] [place] [address] Potassium [Moles/Vol] 4.2 mmol/L Normal 3.5-5.0 [facility] Comment on above: Performed By: #### C BC, UPCR, FEPR, 77298-2, RENAL, 3084-1, 2276-4, 2731-8, 10921-6 ####[facility] ([id number])[address], [address], [place] [address] Sodium [Moles/Vol] 143 mmol/L Normal 134-146 [facility] Comment on above: Performed By: #### C BC, UPCR, FEPR, 03937-5, RENAL, 3084-1, 2276-4, 2731-8, 65918-5 ####[facility] ([id number])[address], [address] [place] [address] Urea nitrogen [Mass/Vol] 42 mg/dL High 5-27 [facility] Comment on above: Performed By: #### C BC, UPCR, FEPR, 90201-1, RENAL, 3084-1, 2276-4, 2731-8, 82337-5 ####[facility] ([id number])[address], [address], [place] [address] URIC ACIDon 04-21-2024 Urate [Mass/Vol] 4.3 mg/dL Normal 2.6-7.2 [facility] Comment on above: Performed By: #### C BC, UPCR, FEPR, 17329-1, RENAL, 3084-1, 2276-4, 2731-8, 28981-4 ####[facility] ([id number])[address], [address] [place] [address] URINALYSISon 04-21-2024 Bilirubin Ql (U) Negative Normal NEG [facility] Comment on above: Performed By: #### U A ####[facility] ([id number])[address], [address] [place] [address] BLOOD/HGB Trace Abnormal NEG [facility] Comment on above: Performed By: #### U A ####[facility] ([id number])[address], [address] [place] [address] Color (U) YELLOW Normal YELLOW [facility] Comment on above: Performed By: #### U A ####[facility] ([id number])[address], [address], [place] [address] Glucose Ql (U) Negative Normal NEG [facility] Comment on above: Performed By: #### U A ####[facility] ([id number])[address] [place] [address] Ketones Ql (U) Negative Normal NEG [facility] Comment on above: Performed By: #### U A ####[facility] ([id number])[address], [address], [place] [address] Leukocyte esterase Test strip Ql (U) Large Abnormal NEG [facility] Comment on above: Performed By: #### U A ####[facility] ([id number])[address], [address] [place] [address] MUCOUS PRESENT Abnormal NONE [facility] Comment on above: Performed By: #### U A ####[facility] ([id number])[address], [address] [place] [address] Nitrite Ql (U) Negative Normal NEG [facility] Comment on above: Performed By: #### U A ####[facility] ([id number])[address] [address] [address] pH (U) 6.0 [pH] Normal 5.0-8.5 [facility] Comment on above: Performed By: #### U A ####[facility] ([id number])[address] [address] [place] [address] Protein Ql (U) 50 mg/dL Abnormal NEG [facility] Comment on above: Performed By: #### U A ####[facility] ([id number])[address] [address] [place] [address] R.B.CELLS 5 /hpf Normal 0-5 [facility] Comment on above: Performed By: #### U A ####[facility] ([id number])[address] [address] [place] [address] Specific gravity (U) [Rel density] 1.014 Normal 1.003-1.035 [facility] Comment on above: Performed By: #### U A ####[facility] ([id number])[address] [address] SQUAMOUS EPITHELIUM 1 /hpf Normal 0-5 [facility] Comment on above: Performed By: #### U A ####[facility] ([id number])[address] [address] [place] [address] TURBIDITY HAZY Abnormal CLEAR [facility] Comment on above: Performed By: #### U A ####[facility] ([id number])[address] [address] [place] [address] Urobilinogen (U) [Mass/Vol] mg/dL Normal <1.1 [facility] Comment on above: Performed By: #### U A ####[facility] ([id number])[address] [place] [address], [address] [address] W.B.CELLS 455 /hpf High 0-5 [facility] Comment on above: Performed By: #### U A ####[facility] ([id number])[address] [place] [address], [address] [address] WBC CLUMPS RARE Abnormal NONE [facility] Comment on above: Performed By: #### U A ####[facility] ([id number])[address] [place] [address], [address] [place] [address] Vitamin D+Metabolites [Mass/ Vol]on 04-21-2024 VITAMIN D 25 HYD TOT 32.8 ng/mL Normal 30-100 [facility] Comment on above: Result Comment: Radha min D status 25 [place] Vitamin D Deficiency <20 ng/mLInsufficiency 20-29 ng/mLSufficiency 30-100 ng/mLToxicity >100 ng/mLNOTE: A pediatric reference range has not beenestablished by the sonography technologist of this kit.The [place] [employer] recommendsa Vitamin D level of = or >20ng/mL in infantsand children. Performed By: #### C BC, UPCR, FEPR, 25392-1, RENAL, 3084-1, 2276-4, 2731-8, 56083-7 ####[facility] ([id number])[address] [facility], [address], [place] [address] MAGNESIUMon 04-14-2024 Magnesium [Mass/Vol] 1.6 mg/dL Low 1.8-2.6 [facility] Comment on above: Performed By: #### 1 9123-9 ####[facility] ([id number])[address] [place] [address] MAGNESIUMon 04-08-2024 Magnesium [Mass/Vol] 1.5 mg/dL Low 1.8-2.6 [facility] Comment on above: Performed By: #### 1 9123-9 ####[facility] ([id number])[address] [place] [address] MAGNESIUMon 03-31-2024 Magnesium [Mass/Vol] 1.7 mg/dL Low 1.8-2.6 [facility] Comment on above: Performed By: #### 1 9123-9 ####[facility] ([id number])[address] [place] [address] MAGNESIUMon 03-24-2024 Magnesium [Mass/Vol] 1.6 mg/dL Low 1.8-2.6 [facility] Comment on above: Performed By: #### 1 9123-9 ####[facility] ([id number])[address] [place] [address] MAGNESIUMon 03-17-2024 Magnesium [Mass/Vol] 1.6 mg/dL Low 1.8-2.6 [facility] Comment on above: Performed By: #### 1 9123-9 ####[facility] ([id number])[address] [place] [address], [place] [address] MAGNESIUMon 03-10-2024 Magnesium [Mass/Vol] 1.6 mg/dL Low 1.8-2.6 [facility] Comment on above: Performed By: #### 1 9123-9 ####[facility] ([id number])[address] [place] [address] MAGNESIUMon 03-03-2024 Magnesium [Mass/Vol] 1.8 mg/dL Normal 1.8-2.6 [facility] Comment on above: Performed By: #### 1 9123-9 ####[facility] ([id number])[address] [place] [address] MAGNESIUMon 02-25-2024 Magnesium [Mass/Vol] 1.9 mg/dL Normal 1.8-2.6 [facility] Comment on above: Performed By: #### 1 9123-9 ####[facility] ([id number])[address] [place] [address], [place] [address] MAGNESIUMon 02-18-2024 Magnesium [Mass/Vol] 1.9 mg/dL Normal 1.8-2.6 [facility] Comment on above: Performed By: #### 1 9123-9 ####[facility] ([id number])[address] [place] [address] MAGNESIUMon 02-11-2024 Magnesium [Mass/Vol] 2.0 mg/dL Normal 1.8-2.6 [facility] Comment on above: Performed By: #### 1 9123-9 ####[facility] ([id number])[address] [place] [address] MAGNESIUMon 02-04-2024 Magnesium [Mass/Vol] 1.8 mg/dL Normal 1.8-2.6 [facility] Comment on above: Performed By: #### 1 9123-9 ####[facility] ([id number])[address] [place] [address] MAGNESIUMon 01-28-2024 Magnesium [Mass/Vol] 1.8 mg/dL Normal 1.8-2.6 [facility] Comment on above: Performed By: #### 1 9123-9 ####[facility] ([id number])[address] [place] [address] MAGNESIUMon 01-21-2024 Magnesium [Mass/Vol] 1.7 mg/dL Low 1.8-2.6 [facility] Comment on above: Performed By: #### 2 823-3, 34555-4 ####[facility] ([id number])[address] [place] [address] POTASSIUMon 01-21-2024 Potassium [Moles/Vol] 3.6 mmol/L Normal 3.5-5.0 [facility] Comment on above: Performed By: #### 2 823-3, 17411-6 ####[facility] ([id number])[address] [place] [address] MAGNESIUMon 01-14-2024 Magnesium [Mass/Vol] 1.6 mg/dL Low 1.8-2.6 [facility] Comment on above: Performed By: #### 1 9123-9 ####[facility] ([id number])[address] [place] [address] MAGNESIUMon 01-07-2024 Magnesium [Mass/Vol] 1.7 mg/dL Low 1.8-2.6 [facility] Comment on above: Performed By: #### 1 9123-9 ####[facility] ([id number])[address] [place] [address] MAGNESIUMon 12-31-2023 Magnesium [Mass/Vol] 1.7 mg/dL Low 1.8-2.6 [facility] Comment on above: Performed By: #### 1 9123-9 ####[facility] ([id number])[address] [place] [address] MAGNESIUMon 12-24-2023 Magnesium [Mass/Vol] 1.6 mg/dL Low 1.8-2.6 [facility] Comment on above: Performed By: #### 1 9123-9 ####[facility] ([id number])[address] [place] [address] MAGNESIUMon 12-17-2023 Magnesium [Mass/Vol] 1.5 mg/dL Low 1.8-2.6 [facility] Comment on above: Performed By: #### 1 9123-9 ####[facility] ([id number])[address] [place] [address] MAGNESIUMon 12-10-2023 Magnesium [Mass/Vol] 1.7 mg/dL Low 1.8-2.6 [facility] Comment on above: Performed By: #### 1 9123-9 ####[facility] ([id number])[address] [place] [address] MAGNESIUMon 12-03-2023 Magnesium [Mass/Vol] 1.7 mg/dL Low 1.8-2.6 [facility] Comment on above: Performed By: #### 1 9123-9 ####[facility] ([id number])[address] [place] [address] COMPREHENSIVE METABOLIC PANE Jared 11-26-2023 Albumin [Mass/Vol] 3.9 g/dL Normal 3.2-5.3 [facility] Comment on above: Performed By: #### 1 9123-9 ####[facility] ([id number])[address] [place] [address]#### JAS, 12850-3 ####[facility] ([id number])[address] [facility], [address] [place] [address] ALP [Catalytic activity/Vol] 122 U/L Normal 39-130 [facility] Comment on above: Performed By: #### 1 9123-9 ####[facility] ([id number])[address] [place] [address]#### CMP, 15430-4 ####[facility] ([id number])[address], [place] [address] ALT [Catalytic activity/Vol] 29 U/L Normal 0-31 [facility] Comment on above: Performed By: #### 1 9123-9 ####[facility] ([id number])[address] [place] [address]84#### CMP, 50295-1 ####[facility] ([id number])[address], [place] [address] Anion gap [Moles/Vol] 9 mmol/L Normal 5-15 [facility] Comment on above: Performed By: #### 1 9123-9 ####[facility] ([id number])[address] [place] [address] 24944#### JAS, 69107-1 ####[facility] ([id number])[address], [place] [address] AST [Catalytic activity/Vol] 22 U/L Normal 0-41 [facility] Comment on above: Performed By: #### 1 9123-9 ####[facility] ([id number])[address] [place] [address] 25397#### JAS, 67994-5 ####[facility] ([id number])[address], [place] [address] Bilirubin [Mass/Vol] 0.4 mg/dL Normal 0.3-1.2 [facility] Comment on above: Performed By: #### 1 9123-9 ####[facility] ([id number])[address] [place] [address]07#### JAS, 75402-7 ####[facility] ([id number])[address], [place] [address] Calcium [Mass/Vol] 9.7 mg/dL Normal 8.5-10.5 [facility] Comment on above: Performed By: #### 1 9123-9 ####[facility] ([id number])[address] [place] [address]#### JAS, 95225-1 ####[facility] ([id number])[address], [place] [address] Chloride [Moles/Vol] 103 mmol/L Normal 98-109 [facility] Comment on above: Performed By: #### 1 9123-9 ####[facility] ([id number])[address] [place] [address]459#### JAS, 99677-6 ####[facility] ([id number])[address], [address] [place] [address] CO2 [Moles/Vol] 30 mmol/L Normal 22-32 [facility] Comment on above: Performed By: #### 1 9123-9 ####[facility] ([id number])[address] [place] [address]#### JAS, 17230-8 ####[facility] ([id number])[address], [address] [place] [address] Creatinine [Mass/Vol] 1.53 mg/dL High 0.40-1.00 [facility] Comment on above: Result Comment: METH OD TRACEABLE TO IDMS STANDARD Performed By: #### 1 9123-9 ####[facility] ([id number])[address] [place] [address]#### JAS, 92287-4 ####[facility] ([id number])[address], [address] [address] GFR/1.73 sq M.predicted among non-blacks MDRD (S/P/Bld) [Vol rate/Area] 34 mL/min/{1.73_m2} Low >59 [facility] Comment on above: Result Comment: Repo rted eGFR is based on theCKD-EPI 2020 equation that doesnot use a race coefficient. Performed By: #### 1 9123-9 ####[facility] ([id number])[address] [place] [address]#### JAS, 72585-9 ####[facility] ([id number])[address], [place] [address] Glucose [Mass/Vol] 165 mg/dL High 65-99 [facility] [place] Comment on above: Performed By: #### 1 9123-9 ####[facility] ([id number])[address] [place] [address]#### JAS, 58746-9 ####[facility] ([id number])[address], [address], [place] [address] Potassium [Moles/Vol] 4.4 mmol/L Normal 3.5-5.0 [facility] Comment on above: Performed By: #### 1 9123-9 ####[facility] ([id number])[address] [place] [address]#### JAS, 63399-0 ####[facility] ([id number])[address], [place] [address] Protein [Mass/Vol] 7.1 g/dL Normal 6.0-8.0 [facility] [place] Comment on above: Performed By: #### 1 9123-9 ####[facility] ([id number])[address] [place] [address] 88104#### JAS, 31655-3 ####[facility] ([id number])[address], [place] [address] Sodium [Moles/Vol] 142 mmol/L Normal 134-146 [facility] [place] Comment on above: Performed By: #### 1 9123-9 ####[facility] ([id number])[address] [place] [address]#### JAS, 19469-5 ####[facility] ([id number])[address], [place] [address] Urea nitrogen [Mass/Vol] 43 mg/dL High 5-27 [facility] Comment on above: Performed By: #### 1 9123-9 ####[facility] ([id number])[address] [place] [address]#### JAS, [id number] ####[facility] ([id number])2130 [facility], [address] [address] HGB A1C (GLYCO-HGB)on 2023 Glucose [Mass/Vol] 163 mg/dL Normal [facility] Comment on above: Performed By: #### 1 9123-9 ####[facility] ([id number])[address] [place] [address]#### JAS, [id number] ####[facility] ([id number])[address] [address] HbA1c (Bld) [Mass fraction] 7.3 % High 4.4-5.6 [facility] Comment on above: Result Comment: NOTE ADA Guidelines Result HgbA1c Normal : less than 5.7 % Prediabetes : 5.7 % to 6.4 % Diabetes : > 6.4 %Use with caution in patients with abnormal hemoglobin variants asthe half-life of red blood cells and in vivo glycation rates areaffected. Performed By: #### 1 9123-9 ####[facility] ([id number])[address] [place] [address]#### JAS, [id number] ####[facility] ([id number])2130 [facility], [address] [address] Lipid 1996 panelon Cholesterol [Mass/Vol] 145 mg/dL Low 150-200 [facility] Comment on above: Performed By: #### 1 9123-9 ####[facility] ([id number])[address] [place] [address]#### JAS, [id number] ####[facility] ([id number])[address]130 [facility], [address] [place] [address] Cholesterol in HDL [Mass/Vol] 53 mg/dL Normal >39 [facility] Comment on above: Result Comment: HDL <40 mg/dL - High RiskHDL > or = 40mg/dL- DesirableHDL >60 mg/dL - Negative Risk Performed By: #### 1 9123-9 ####[facility] ([id number])[address] [place] [address]#### JAS, [id number] ####[facility] ([id number])[facility]0 [facility], [address] [address] Cholesterol in LDL [Mass/Vol] 43 mg/dL Normal <130 [facility] Comment on above: Result Comment: LDL <100 mg/dL - DesirableLDL >160 mg/dL - High Risk Performed By: #### 1 9123-9 ####[facility] ([id number])[address] [place] [address]#### JAS, 03426-5 ####[facility] ([id number])[address] [facility], [address] [place] [address] Cholesterol in VLDL [Mass/Vol] 49 mg/dL High 0-30 [facility] Comment on above: Performed By: #### 1 9123-9 ####[facility] ([id number])[address] [place] [address]#### CMP, [id number] ####[facility] ([id number])[address], [address] [place] [address] CHOLESTEROL:HDL 2.7 Normal 1.0-5.0 [facility] Comment on above: Performed By: #### 1 9123-9 ####[facility] ([id number])[address] [place] [address]#### CMP, 09102-6 ####[facility] ([id number])2129 [facility], [address] [place] [address] Triglyceride [Mass/Vol] 245 mg/dL High 27-150 [facility] Comment on above: Performed By: #### 1 9123-9 ####[facility] ([id number])[address] [place] [address]#### CMP, 03933-1 ####[facility] ([id number])[address] [facility], [address] [place] [address] MAGNESIUMon 11-26-2023 Magnesium [Mass/Vol] 1.8 mg/dL Normal 1.8-2.6 [facility] Comment on above: Performed By: #### 1 9123-9 ####[facility] ([id number])[address] [place] [address]#### CMP, 02766-6 ####[facility] ([id number])[address]129 [facility], [address] [place] [address] MICROALBUMIN - ALBUMIN:CREAT ININE URINE RATIOon 11-26-2023 ALB/CREAT RATIO 352.8 mg/g creat High 0.0-30.0 [facility] Comment on above: Performed By: #### M ALBU #### [facility] ([id number]) [address], [address] [place] [address] Albumin DL <= 20 mg/L (U) [Mass/Vol] 14.6 mg/dL High 0.0-1.9 [facility] Comment on above: Performed By: #### M ALBU #### [facility] ([id number]) [address] [facility], [address] [place] [address] URINE CREAT 41.38 mg/dL Normal [facility] Comment on above: Performed By: #### M ALBU #### [facility] ([id number]) [address] [facility], [address] [place] [address] Office Visiton 11-19-2023 Follow-up visit [id number] Adore Wolff 1940 F Date Provider Department Center 11/19/2023 DARELL HOUSTON [facility] Family History Problem Relation Age of Onset Heart attack Mother Family Status - Relation Status Age at Mother Level of Service:90076 [place] OFFICE/OUTPATIENT ESTABLISHED LOW MDM 20 MIN Normal [facility] Magnesium [Mass/volume] in S asiya or PlasmaOrdered By: Gia Conley on 11-16-2023 Magnesium [Mass/Vol] 1.4 mg/dL 1.9-2.7 [facility] Multiple labsOrdered By: Mary Ann Carter on 11-16-2023 [facility] PTH INTACTon 01-16-2023 PTH, Intact 115 pg/mL Critically high 15-65 [facility] Comment on above: Performed By: #### M G, URIC, RENAL #### [facility] [address] [address] [address] Nacho Jeffery FERRITINon 01-15-2023 Ferritin [Mass/Vol] 304.0 ng/mL Critically high 8.0-252.0 [facility] Comment on above: Performed By: #### M G, URIC, RENAL #### [facility] [address] [address] [address] Nacho Jeffery HEMOGRAM AND PLATELon 2022 Hematocrit (Bld) [Volume fraction] 36.0 % Normal 36.0-48.0 [facility] Comment on above: Performed By: #### M G, URIC, RENAL #### [facility] [address] [place] [address] Dr. Nacho Jeffery Hemoglobin (Bld) [Mass/Vol] 11.6 g/dL Critically low 12.0-16.0 [facility] Comment on above: Performed By: #### M G, URIC, RENAL #### [facility] [address] [place] [address] Dr. Nacho Jeffery MCH (RBC) [Entitic mass] 29.4 pg Normal 26.7-34.0 [facility] Comment on above: Performed By: #### M G, URIC, RENAL #### [facility] [address] [place] [address] Dr. Nacho Jeffery MCHC (RBC) [Mass/Vol] 32.2 g/dL Normal 29.9-35.2 [facility] Comment on above: Performed By: #### M G, URIC, RENAL #### [facility] [address] [place] [address] Dr. Nacho Jeffery MCV (RBC) [Entitic vol] 91.4 fL Normal 81.0-99.0 [facility] Comment on above: Performed By: #### M G, URIC, RENAL #### [facility] [address] [place] [address] Dr. Nacho Jeffery PLT 202 103/ul Normal 150-450 [facility] Comment on above: Performed By: #### M G, URIC, RENAL #### [facility] [address] [place] [address] Dr. Nacho Jeffery RBC 3.94 106/ul Critically low 4.20-5.40 [facility] Comment on above: Performed By: #### M G, URIC, RENAL #### [facility] [address] [place] [address] Dr. Nacho Jeffery WBC 5.9 103/ul Normal 4.0-11.0 [facility] Comment on above: Performed By: #### M G, URIC, RENAL #### [facility] [address] [address] [address] Nacho Jeffery IRON AND TIBCon 01-15-2023 % SATURATION 23.4 % Normal [facility] Comment on above: Performed By: #### M G, URIC, RENAL #### [facility] [address] [address] [address] Nacho Jeffery Iron [Mass/Vol] 62.0 ug/dL Normal 50.0-170.0 [facility] Comment on above: Performed By: #### M G, URIC, RENAL #### [facility] [address] [address] [address] Nacho Jeffery TIBC DIRECT 265.0 ug/dL Normal 250.0-450.[address] [facility] Comment on above: Performed By: #### M G, URIC, RENAL #### [facility] [address] [place] [address] Dr. Nacho Jeffery MAGNESIUMon 01-15-2023 Magnesium [Mass/Vol] 1.5 mg/dL Critically low 1.8-2.4 [facility] Comment on above: Performed By: #### M G, URIC, RENAL #### [facility] [address] [address] [address] Nacho Jeffery RENAL FUNCTION PANELon 01-15 Albumin [Mass/Vol] 3.4 g/dL Normal 3.4-5.0 [facility] Comment on above: Performed By: #### M G, URIC, RENAL #### [facility] [address] [address] [address] Nacho Jeffery Calcium [Mass/Vol] 9.2 mg/dL Normal 8.5-10.1 [facility] Comment on above: Performed By: #### M G, URIC, RENAL #### [facility] [address] [place] [address] Dr. Nacho Jeffery Chloride [Moles/Vol] 104 mmol/L Normal 98-107 [facility] Comment on above: Performed By: #### M G, URIC, RENAL #### [facility] [address] [place] [address] Dr. Nacho Jeffery CO2 [Moles/Vol] 30.8 mmol/L Normal 21.0-32.0 [facility] Comment on above: Performed By: #### M G, URIC, RENAL #### [facility] [address] [address] [address] Nacho Jeffery Creatinine [Mass/Vol] 1.52 mg/dL Critically high 0.55-1.02 [facility] Comment on above: Performed By: #### M G, URIC, RENAL #### [facility] [address] [place] [address] Dr. Nacho Jeffery EGFR-AF KOSOVAN 40 mL/min/1.73m2 Critically low >=60 [facility] Comment on above: Performed By: #### M Jamarcus, URIC, RENAL #### [facility] [address] [place] [address] Dr. Nacho Jeffery EGFR-NON AF KOSOVAN 33 mL/min/1.73m2 Critically low >=60 [facility] Comment on above: Performed By: #### M Jamarcus, URIC, RENAL #### [facility] [address] [address] [address] Nacho Jeffery Glucose [Mass/Vol] 172 mg/dL Critically high 74-106 [facility] Comment on above: Performed By: #### M Jamarcus, URIC, RENAL #### [facility] [address] [place] [address] Dr. Nacho Jeffery Phosphate [Mass/Vol] 3.7 mg/dL Normal 2.6-4.7 [facility] Comment on above: Performed By: #### M G, URIC, RENAL #### [facility] [address] [place] [address] Dr. Nacho Jeffery Potassium [Moles/Vol] 4.2 mmol/L Normal 3.5-5.1 [facility] Comment on above: Performed By: #### M G, URIC, RENAL #### [facility] [address] [address] [address] Nacho Jeffery Sodium [Moles/Vol] 143 mmol/L Normal 136-145 [facility] Comment on above: Performed By: #### M G, URIC, RENAL #### [facility] [address] [place] [address] Dr. Nacho Jeffery Urea nitrogen [Mass/Vol] 56.0 mg/dL Critically high 7.0-18.0 [facility] Comment on above: Performed By: #### M G, URIC, RENAL #### [facility] [address] [place] [address] Dr. Nacho Jeffery UA RANDOM W/MICROSCOPICon BACTERIA NONE SEEN Normal NONE SEEN [facility] Comment on above: Performed By: #### M G, URIC, RENAL #### [facility] [address] [place] [address] Dr. Nacho Jeffery Bilirubin Ql (U) Negative Normal NEGATIVE [facility] Comment on above: Performed By: #### M G, URIC, RENAL #### [facility] [address] [place] [address] Dr. Nacho Jeffery CAST NONE SEEN Normal NONE SEEN [facility] Comment on above: Performed By: #### M G, URIC, RENAL #### [facility] [address] [place] [address] Dr. Nacho Jeffery Clarity (U) CLEAR Normal CLEAR [facility] Comment on above: Performed By: #### M G, URIC, RENAL #### [facility] [address] [place] [address] Dr. Nacho Jeffery Color (U) LT. YELLOW Normal YELLOW [facility] Comment on above: Performed By: #### M G, URIC, RENAL #### [facility] [address] [place] [address] Dr. Nacho Jeffery Crystals LM Nom (Urine sed) NONE SEEN Normal NONE SEEN [facility] Comment on above: Performed By: #### M G, URIC, RENAL #### [facility] [address] [place] [address] Dr. Nacho Jeffery Epithelial cells LM Ql (Urine sed) RARE Normal NONE SEEN /RARE [facility] Comment on above: Performed By: #### M G, URIC, RENAL #### [facility] [address] [place] [address] Dr. Nacho Jeffery Glucose Ql (U) Negative Normal NEGATIVE [facility] Comment on above: Performed By: #### M G, URIC, RENAL #### [facility] [address] [address] [address] Nacho Jeffery Hemoglobin Ql (U) Negative Normal NEGATIVE [facility] Comment on above: Performed By: #### M G, URIC, RENAL #### [facility] [address] [address] [address] Nacho Jeffery Ketones Ql (U) Negative Normal NEGATIVE [facility] Comment on above: Performed By: #### M G, URIC, RENAL #### [facility] [address] [address] [address] Nacho Jeffery LEUKOCYTES TRACE Abnormal NEGATIVE [facility] Comment on above: Performed By: #### M G, URIC, RENAL #### [facility] [address] [place] [address] Dr. Nacho Jeffery MUCOUS NONE SEEN Normal NONE SEEN [facility] Comment on above: Performed By: #### M G, URIC, RENAL #### [facility] [address] [place] [address] Dr. Nacho Jeffery Nitrite Ql (U) Negative Normal NEGATIVE [facility] Comment on above: Performed By: #### M G, URIC, RENAL #### [facility] [address] [place] [address] Dr. Nacho Jeffery pH (U) 5.5 [pH] Normal 5-9 [facility] Comment on above: Performed By: #### M G, URIC, RENAL #### [facility] [address] [place] [address] Dr. Nacho Jeffery RBC 0-2 Normal 0-2 [facility] Comment on above: Performed By: #### M G, URIC, RENAL #### [facility] [address] [place] [address] Dr. Nacho Jeffery SPEC GRAVITY 1.015 Normal 1.005-<=1.025 [facility] Comment on above: Performed By: #### M G, URIC, RENAL #### [facility] [address] [place] [address] Dr. Nacho Jeffery UA PROTEIN Negative Normal NEGATIVE/ TRACE [facility] Comment on above: Performed By: #### M G, URIC, RENAL #### [facility] [address] [address] [address] Nacho Jeffery Urobilinogen Qn (U) 0.2 {Zuleyka'U}/dL Normal 0.2 - 1. 0 [facility] Comment on above: Performed By: #### M G, URIC, RENAL #### [facility] [address] [place] [address] Dr. Nacho Jeffery WBC 2-5 Abnormal NONE SEEN [facility] Comment on above: Performed By: #### M Jamarcus, URIC, RENAL #### [facility] [address] [place] [address] Dr. Nacho Jeffery URIC ACID SERUMon 01-15-2023 Urate [Mass/Vol] 7.0 mg/dL Critically high 2.6-6.0 [facility] Comment on above: Performed By: #### M Jamarcus, URIC, RENAL #### [facility] [address] [place] [address] Dr. Nacho Jeffery URINE T PROTEIN CREAT RATIOo n 01-15-2023 Protein (U) [Mass/Vol] 13.4 mg/dL Critically high <=12.0 [facility] Comment on above: Performed By: #### U RTPCR #### [facility] [address] [place] [address] Dr. Nacho Jeffery UR PROT CREAT RAT 0.24 Normal [facility] Comment on above: Performed By: #### U RTPCR #### [facility] [address] [place] [address] Dr. Nacho Jeffery URINE CREAT 56.90 mg/dL Normal 20.00-300.00 [place] Comment on above: Performed By: #### U RTPCR #### [facility] [address] [place] [address] Dr. Nacho Jeffery VITAMIN D 25 OHon 01-15-2023 VIT D 25-OH 52.6 ng/mL Normal [facility] Comment on above: Performed By: #### M G, URIC, RENAL #### [facility] [address] [address] [address] Nacho Jeffery VIT D RANGES SEE BELOW Normal [facility] Comment on above: Result Comment: <20 ng/mL Vit D deficient 20 - <30 ng/mL Vit D insufficient 30 - 100 ng/mL Vit D sufficient >100 ng/mL Potential Toxicity Performed By: #### M Jamarcus, URIC, RENAL #### [facility] [address] [address] [address] Nacho Jeffery Telemedicineon 12-06-2022 Telemedicine [id number] Adore Wolff Maryjane 1940 F Date Provider Department Center 12/06/2022 MOE RAMOS [facility] Family History Problem Relation Age of Onset Heart attack Mother Family Status - Relation Status Age at Mother Level of Service:83821 [place] OFFICE/OUTPATIENT EST PT MAY NOT REQ PHYS/QHP Normal [facility] GLYCOHEMOGLOBIN A1Con 2021 ADA RECOMMENDATION SEE BELOW Normal [facility] Comment on above: Result Comment: ADA RECOMMENDED LIMIT 4.0 - 6.0 ADA THERAPEUTIC TARGET < 7.0 ACTION SUGGESTED > 7.0 Performed By: #### A 1C #### [facility] [address] [place] [address] Dr. Nacho Jeffery Glucose [Mass/Vol] 143 mg/dL Normal [facility] Comment on above: Performed By: #### A 1C #### [facility] [address] [address] [address] Nacho Jeffery HbA1c (Bld) [Mass fraction] 6.6 % Critically high 4.5-6.2 [facility] Comment on above: Performed By: #### A 1C #### [facility] [address] [place] [address] Dr. Nacho Jeffery LIPID PROFILEon 11-09-2022 CHOL-HDL RATIO NORM SEE BELOW Normal [facility] Comment on above: Result Comment: 3.3 - 4.4 LOW RISK 4.4 - 7.1 AVERAGE RISK 7.1 - 11.0 MODERATE RISK >11.0 HIGH RISK Performed By: #### M G, URIC, RENAL #### [facility] [address] [address] [address] Nacho Jeffery Cholesterol [Mass/Vol] 141 mg/dL Normal <=200 [facility] Comment on above: Performed By: #### M G, URIC, RENAL #### [facility] [address] [address] [address] Nacho Jeffery Cholesterol in HDL [Mass/Vol] 59 mg/dL Normal 40-60 [facility] Comment on above: Performed By: #### M G, URIC, RENAL #### [facility] [address] [address] [address] Nacho Jeffery Cholesterol in LDL [Mass/Vol] 46.2 mg/dL Normal [facility] Comment on above: Performed By: #### M G, URIC, RENAL #### [facility] [address] [address] [address] Nacho Jeffery Cholesterol.total/C holesterol in HDL [Mass ratio] 2.4 {ratio} Normal [facility] Comment on above: Performed By: #### M G, URIC, RENAL #### [facility] [address] [address] [address] Nacho Jeffery HDL NORMAL > or = 60 mg/dl - LO W CARDIOVASCULAR RISK <40 mg/dl - HIGH CARDIOVASCULAR RISK Normal [facility] Comment on above: Performed By: #### M G, URIC, RENAL #### [facility] [address] [address] [address] Nacho Jeffery LDL CALC NORMAL SEE BELOW Normal [facility] Comment on above: Result Comment: <100 mg/dl OPTIMAL 100 - 129 mg/dl NEAR OR ABOVE OPTIMAL 130 - 159 mg/dl BORDERLINE HIGH 160 - 189 mg/dl HIGH >190 mg/dl VERY HIGH Performed By: #### M G, URIC, RENAL #### [facility] [address] [address] [address] Nacho Jeffery Triglyceride [Mass/Vol] 179 mg/dL Critically high <=150 [facility] Comment on above: Performed By: #### M G, URIC, RENAL #### [facility] [address] [address] [address] Nacho Jeffery VLDL CALC 35.8 mg/dL Normal [facility] Comment on above: Performed By: #### M G, URIC, RENAL #### [facility] [address] [address] [address] Nacho Jeffery PROF 14(COMP METB)on 022 Albumin [Mass/Vol] 3.2 g/dL Critically low 3.4-5.[address] [facility] Comment on above: Performed By: #### M G, URIC, RENAL #### [facility] [address] [address] [address] Nacho Jeffery Albumin/Globulin [Mass ratio] 0.8 {ratio} Normal [facility] Comment on above: Performed By: #### M G, URIC, RENAL #### [facility] [address] [place] [address] Dr. Nacho Jeffery ALP [Catalytic activity/Vol] 109 U/L Normal 46-116 [facility] Comment on above: Performed By: #### M G, URIC, RENAL #### [facility] [address] [place] [address] Dr. Nacho Jeffery ALT [Catalytic activity/Vol] 38 U/L Normal 14-59 [facility] Comment on above: Performed By: #### M G, URIC, RENAL #### [facility] [address] [place] [address] Dr. Nacho Jeffery Anion gap [Moles/Vol] 13.7 mmol/L Normal [facility] Comment on above: Performed By: #### M G, URIC, RENAL #### [facility] [address] [place] [address] Dr. Nacho Jeffery AST [Catalytic activity/Vol] 27 U/L Normal 15-37 [facility] Comment on above: Performed By: #### M G, URIC, RENAL #### [facility] [address] [place] [address] Dr. Nacho Jeffery Bilirubin [Mass/Vol] 0.4 mg/dL Normal 0.2-1.0 [facility] Comment on above: Performed By: #### M G, URIC, RENAL #### [facility] [address] [address] [address] Nacho Jeffery Calcium [Mass/Vol] 9.2 mg/dL Normal 8.5-10.1 [facility] Comment on above: Performed By: #### M G, URIC, RENAL #### [facility] [address] [address] [address] Nacho Jeffery Chloride [Moles/Vol] 105 mmol/L Normal 98-107 [facility] Comment on above: Performed By: #### M G, URIC, RENAL #### [facility] [address] [address] [address] Nacho Jeffery CO2 [Moles/Vol] 29.5 mmol/L Normal 21.0-32.0 [facility] Comment on above: Performed By: #### M G, URIC, RENAL #### [facility] [address] [place] [address] Dr. Nacho Jeffery Creatinine [Mass/Vol] 1.62 mg/dL Critically high 0.55-1.02 [facility] Comment on above: Performed By: #### M G, URIC, RENAL #### [facility] [address] [place] [address] Dr. Nacho Jeffery EGFR-AF KOSOVAN 37 mL/min/1.73m2 Critically low >=60 [facility] Comment on above: Performed By: #### M G, URIC, RENAL #### [facility] [address] [place] [address] Dr. Nacho Jeffery EGFR-NON AF KOSOVAN 31 mL/min/1.73m2 Critically low >=60 [facility] Comment on above: Performed By: #### M G, URIC, RENAL #### [facility] [address] [address] [address] Nacho Jeffery Globulin (S) [Mass/Vol] 3.8 g/dL Normal [facility] Comment on above: Performed By: #### M G, URIC, RENAL #### [facility] [address] [address] [address] Nacho Jeffery Glucose [Mass/Vol] 102 mg/dL Normal 74-106 [facility] Comment on above: Performed By: #### M G, URIC, RENAL #### [facility] [address] [place] [address] Dr. Nacho Jeffery Potassium [Moles/Vol] 4.2 mmol/L Normal 3.5-5.1 [facility] Comment on above: Performed By: #### M Jamarcus, URIC, RENAL #### [facility] [address] [place] [address] Dr. Nacho Jeffery Protein [Mass/Vol] 7.0 g/dL Normal 6.4-8.2 [facility] Comment on above: Performed By: #### M Jamarcus, URIC, RENAL #### [facility] [address] [place] [address] Dr. Nacho Jeffery Sodium [Moles/Vol] 144 mmol/L Normal 136-145 [facility] Comment on above: Performed By: #### M Jamarcus URIC, RENAL #### [facility] [facility] [address] [place] [address] Dr. Nacho Jeffery Urea nitrogen [Mass/Vol] 45.0 mg/dL Critically high 7.0-18.0 [facility] Comment on above: Performed By: #### M Jamarcus, URIC, RENAL #### [facility] [address] [place] [address] Dr. Nacho Jeffery Urea nitrogen/Creatinine [Mass ratio] 27.8 mg/mg Normal [facility] Comment on above: Performed By: #### M Jamarcus, URIC, RENAL #### [facility] [address] [place] [address] Dr. Nacho Jeffery OSMOLALITY URINEon 2 Osmolality, Urine 466 mOsmol/kg Normal [facility] Comment on above: Result Comment: 24 h r : 300 - 900 Random: 50 - 1400 After 12hr fluid restriction: >850 Performed By: #### M G, URIC, RENAL #### [facility] [address] [place] [address] Dr. Nacho Jeffery PTH INTACTon 07-13-2022 PTH, Intact 84 pg/mL Critically high 15-65 [facility] Comment on above: Performed By: #### P THINT #### [facility] [address] [address] [address] Nacho Jeffery VIT D 25-OH [facility] 2021 Vitamin D, 25-Hydroxy 34.7 ng/mL Normal 30.0-100.0 [facility] Comment on above: Result Comment: Radha min D deficiency has been defined by the [facility] [employer] [facility] and an Endocrine Society practice guideline as a level of serum 25-OH vitamin D less than 20 ng/mL (1,2). The Endocrine Society went on to further define vitamin D insufficiency as a level between 21 and 29 ng/mL (2). 1. IOM ([facility] [employer] [facility]). 2010. Dietary reference intakes for calcium and D. [place]: The National Academies Press. 2. Magdiel MF, Kb HARRIS, Evens PEPPER, et al. Evaluation, treatment, and prevention of vitamin D deficiency: an Endocrine Society clinical practice guideline. JCEM. 2010; 96(7):1911-30. Performed By: #### M G, URIC, RENAL #### [facility] [address] [address] [address] Nacho Jeffery HEMOGRAM AND PLATELon 2021 Hematocrit (Bld) [Volume fraction] 35.5 % Critically low 36.0-48.0 [facility] Comment on above: Performed By: #### M G, URIC, RENAL #### [facility] [address] [address] [address] Nacho Jeffery Hemoglobin (Bld) [Mass/Vol] 11.5 g/dL Critically low 12.0-16.0 [facility] Comment on above: Performed By: #### M G, URIC, RENAL #### [facility] [address] [address] [address] aNcho Jeffery MCH (RBC) [Entitic mass] 30.6 pg Normal 26.7-34.0 [facility] Comment on above: Performed By: #### M G, URIC, RENAL #### [facility] [address] [address] [address] Nacho Jeffery MCHC (RBC) [Mass/Vol] 32.4 g/dL Normal 29.9-35.2 [facility] Comment on above: Performed By: #### M G, URIC, RENAL #### [facility] [address] [place] [address] Dr. Nacho Jeffery MCV (RBC) [Entitic vol] 94.4 fL Normal 81.0-99.0 [facility] Comment on above: Performed By: #### M G, URIC, RENAL #### [facility] [address] [address] [address] Nacho Jeffery PLT 192 103/ul Normal 150-450 [facility] Comment on above: Performed By: #### M G, URIC, RENAL #### [facility] [address] [place] [address] Dr. Nacho Jeffery RBC 3.76 106/ul Critically low 4.20-5.40 [facility] Comment on above: Performed By: #### M G, URIC, RENAL #### [facility] [address] [place] [address] Dr. Nacho Jeffery WBC 6.1 103/ul Normal 4.0-11.0 [facility] Comment on above: Performed By: #### M G, URIC, RENAL #### [facility] [address] [place] [address] Dr. Nacho Jeffery MAGNESIUMon 07-12-2022 Magnesium [Mass/Vol] 1.3 mg/dL Critically low 1.8-2.4 [facility] Comment on above: Performed By: #### U CHRISTOFER, MG, RENAL #### [facility] [address] [place] [address] Dr. Nacho Jeffery RENAL FUNCTION PANELon 07-12 Albumin [Mass/Vol] 3.3 g/dL Critically low 3.4-5.0 [facility] Comment on above: Performed By: #### U CHRISTOFER, MG, RENAL #### [facility] [address] [place] [address] Dr. Nacho Jeffery Calcium [Mass/Vol] 9.1 mg/dL Normal 8.5-10.1 [facility] Comment on above: Performed By: #### U CHRISTOFER, MG, RENAL #### [facility] [address] [place] [address] Dr. Nacho Jeffery Chloride [Moles/Vol] 104 mmol/L Normal 98-107 [facility] Comment on above: Performed By: #### U CHRISTOFER, MG, RENAL #### [facility] [address] [place] [address] Dr. Nacho Jeffery CO2 [Moles/Vol] 31.7 mmol/L Normal 21.0-32.0 [facility] Comment on above: Performed By: #### U CHRISTOFER, MG, RENAL #### [facility] [address] [place] [address] Dr. Nacho Jeffery Creatinine [Mass/Vol] 1.52 mg/dL Critically high 0.55-1.02 [facility] Comment on above: Performed By: #### U CHRISTOFER, MG, RENAL #### [facility] [address] [place] [address] Dr. Nacho Jeffery EGFR-AF KOSOVAN 40 mL/min/1.73m2 Critically low >=60 [facility] Comment on above: Performed By: #### U CHRISTOFER, MG, RENAL #### [facility] [address] [place] [address] Dr. Nacho Jeffery EGFR-NON AF KOSOVAN 33 mL/min/1.73m2 Critically low >=60 [facility] Comment on above: Performed By: #### U CHRISTOFER, MG, RENAL #### [facility] [address] [place] [address] Dr. Nacho Jeffery Glucose [Mass/Vol] 221 mg/dL Critically high 74-106 T [facility] Comment on above: Performed By: #### U CHRISTOFER, MG, RENAL #### [facility] [address] [place] [address] Dr. Nacho Jeffery Phosphate [Mass/Vol] 3.8 mg/dL Normal 2.6-4.7 [facility] Comment on above: Performed By: #### U CHRISTOFER, MG, RENAL #### [facility] [address] [place] [address] Dr. Nacho Jeffery Potassium [Moles/Vol] 4.1 mmol/L Normal 3.5-5.1 [facility] Comment on above: Performed By: #### U CHRISTOFER, MG, RENAL #### [facility] [address] [place] [address] Dr. Nacho Jeffery Sodium [Moles/Vol] 143 mmol/L Normal 136-145 [facility] Comment on above: Performed By: #### U CHRISTOFER, MG, RENAL #### [facility] [address] [place] [address] Dr. Nacho Jeffery Urea nitrogen [Mass/Vol] 45.0 mg/dL Critically high 7.0-18.0 [facility] Comment on above: Performed By: #### U CHRISTOFER, MG, RENAL #### [facility] [address] [place] [address] Dr. Nacho Jeffery UA RANDOM W/MICROSCOPICon BACTERIA NONE SEEN Normal NONE SEEN [facility] Comment on above: Performed By: #### M G, URIC, RENAL #### [facility] [address] [place] [address] Dr. Nacho Jeffery Bilirubin Ql (U) Negative Normal NEGATIVE [facility] Comment on above: Performed By: #### M G, URIC, RENAL #### [facility] [address] [place] [address] Dr. Nacho Jeffery CAST NONE SEEN Normal NONE SEEN [facility] Comment on above: Performed By: #### M G, URIC, RENAL #### [facility] [address] [place] [address] Dr. Nacho Jeffery Clarity (U) CLEAR Normal CLEAR [facility] Comment on above: Performed By: #### M G, URIC, RENAL #### [facility] [address] [place] [address] Dr. Nacho Jeffery Color (U) LT. YELLOW Normal YELLOW [facility] Comment on above: Performed By: #### M G, URIC, RENAL #### [facility] [address] [place] [address] Dr. Nacho Jeffery Crystals LM Nom (Urine sed) NONE SEEN Normal NONE SEEN [facility] Comment on above: Performed By: #### M G, URIC, RENAL #### [facility] [address] [address] [address] Nacho Jeffery Epithelial cells LM Ql (Urine sed) FEW Abnormal NONE SEEN /RARE [facility] Comment on above: Performed By: #### M G, URIC, RENAL #### [facility] [address] [address] [address] Nacho Jeffery Glucose Ql (U) Negative Normal NEGATIVE [facility] Comment on above: Performed By: #### M G, URIC, RENAL #### [facility] [address] [address] [address] Nacho Jeffery Hemoglobin Ql (U) Negative Normal NEGATIVE [facility] Comment on above: Performed By: #### M G, URIC, RENAL #### [facility] [address] [address] [address] Nacho Jeffery Ketones Ql (U) Negative Normal NEGATIVE [facility] Comment on above: Performed By: #### M G, URIC, RENAL #### [facility] [address] [address] [address] Nacho Jeffery LEUKOCYTES TRACE Abnormal NEGATIVE [facility] Comment on above: Performed By: #### M G, URIC, RENAL #### [facility] [address] [address] [address] Nacho Jeffery MUCOUS NONE SEEN Normal NONE SEEN [facility] Comment on above: Performed By: #### M G, URIC, RENAL #### [facility] [address] [address] [address] Nacho Jeffery Nitrite Ql (U) Negative Normal NEGATIVE [facility] Comment on above: Performed By: #### M G, URIC, RENAL #### [facility] [address] [address] [address] Nacho Jeffery pH (U) 6.0 [pH] Normal 5-9 [facility] Comment on above: Performed By: #### M G, URIC, RENAL #### [facility] [address] [address] [address] Nacho Jeffery RBC NONE SEEN Abnormal 0-2 [facility] Comment on above: Performed By: #### M G, URIC, RENAL #### [facility] [address] [address] [address] Nacho Jeffery SPEC GRAVITY 1.015 Normal 1.005-<=1.025 [facility] Comment on above: Performed By: #### M G, URIC, RENAL #### [facility] [address] [address] [address] Nacho Jeffery UA PROTEIN Negative Normal NEGATIVE/ TRACE [facility] Comment on above: Performed By: #### M G, URIC, RENAL #### [facility] [address] [address] [address] Nacho Jeffery Urobilinogen Qn (U) 0.2 {Zuleyka'U}/dL Normal 0.2 - 1. 0 [facility] Comment on above: Performed By: #### M G, URIC, RENAL #### [facility] [address] [place] [address] Dr. Nacho Jeffery WBC 2-5 Abnormal NONE SEEN [facility] Comment on above: Performed By: #### M G, URIC, RENAL #### [facility] [address] [address] [address] Nacho Jeffery URIC ACID SERUMon 07-12-2022 Urate [Mass/Vol] 7.9 mg/dL Critically high 2.6-6.0 [facility] Comment on above: Performed By: #### U CHRISTOFER, MG, RENAL #### [facility] [address] [place] [address] Dr. Nacho Jeffery URINE T PROTEIN CREAT RATIOo n 07-12-2022 Protein (U) [Mass/Vol] 17.5 mg/dL Critically high <=12.0 [facility] Comment on above: Performed By: #### M G, URIC, RENAL #### [facility] [address] [place] [address] Dr. Nacho Jeffery UR PROT CREAT RAT 0.29 Normal [facility] Comment on above: Performed By: #### M G, URIC, RENAL #### [facility] [address] [place] [address] Dr. Nacho Jeffery URINE CREAT 60.37 mg/dL Normal 20.00-300.00 [facility] Comment on above: Performed By: #### M G, URIC, RENAL #### [facility] [address] [address] [address] Nacho Jeffery ALBUMIN, RANDOM URINE W/CREA TININEon 05-11-2022 ALBUMIN, URINE 0.5 mg/dL Normal See Note: [facility] Comment on above: Result Comment: Refe rence Range: Reference Range Not established Performed By: #### 4 96, 7600, 6517, 51551 #### [facility] [address], [address] [place] [address] Ethnology Teacher: Mauricio Kern MD ALBUMIN/CREATININE RATIO, RANDOM URINE [...] Performed By: #### 4 96, 7600, 6517, 34332 #### [facility] [address] [place] [address] Ethnology Teacher: Mauricio Kern MD Creatinine (U) [Mass/Vol] 74 mg/dL Normal 20-275 [facility] Comment on above: Performed By: #### 4 96, 7600, 6517, 14157 #### [facility] [address], [address] [place] [address] Ethnology Teacher: Mauricio Kern MD BASIC METABOLIC PANELon 04-14 GLUCOSE Normal [facility] Comment on above: Result Comment: TEST NOT PERFORMED No specimen received. Performed By: #### 4 96, 7600, 6517, 45245 #### [facility] [address], [address] [place] [address] Ethnology Teacher: Mauricio Kenr MD HEMOGLOBIN A1con 06-30-2022 HEMOGLOBIN A1c Normal [facility] Comment on above: Result Comment: TEST NOT PERFORMED No specimen received. Performed By: #### 4 96, 7600, 6517, 46999 #### [facility] of [address], [address] [place] [address] Ethnology Teacher: Mauricio Kern MD LIPID PANEL, [facility] 06-3 0 CHOL/HDLC RATIO Normal [facility] Comment on above: Result Comment: TEST NOT PERFORMED No specimen received. Performed By: #### 4 96, 7600, 6517, 60625 #### [facility] of [address], [address] [place] [address] Ethnology Teacher: Mauricio Kern MD CHOLESTEROL, TOTAL Normal [facility] Comment on above: Result Comment: TEST NOT PERFORMED No specimen received. Performed By: #### 4 96, 7600, 6517, 10829 #### [facility] [address], [address] [place] [address] Ethnology Teacher: Mauricio Kern MD HDL CHOLESTEROL Normal [facility] Comment on above: Result Comment: TEST NOT PERFORMED No specimen received. Performed By: #### 4 96, 7600, 6517, 94708 #### [facility] [place] [address] Ethnology Teacher: Mauricio Kern MD LDL-CHOLESTEROL Normal [facility] Comment on above: Result Comment: TEST NOT PERFORMED No specimen received. Performed By: #### 4 96, 7600, 6517, 84638 #### [facility] [place] [address] Ethnology Teacher: Mauricio Kern MD NON HDL CHOLESTEROL Normal [facility] Comment on above: Result Comment: TEST NOT PERFORMED No specimen received. Performed By: #### 4 96, 7600, 6517, 96614 #### [facility] of [address] [place] [address] Ethnology Teacher: Mauricio Kern MD TRIGLYCERIDES Normal [facility] Comment on above: Result Comment: TEST NOT PERFORMED No specimen received. Performed By: #### 4 96, 7600, 6517, 16826 #### [facility] [place] [address] Ethnology Teacher: Mauricio Kern MD BASIC METABOLIC PANEL - Calcium [Mass/Vol] 9.1 mg/dL Normal 8.6-10.4 [facility] Comment on above: Performed By: #### 1 0165, 496, 7600 #### [facility] [place] [address] Ethnology Teacher: Mauricio Kern MD Chloride [Moles/Vol] 105 mmol/L Normal 98-110 [facility] Comment on above: Performed By: #### 1 0165, 496, 7600 #### [facility] [place] [address] Ethnology Teacher: Mauricio Kern MD CO2 [Moles/Vol] 25 mmol/L Normal 20-32 [facility] Comment on above: Performed By: #### 1 0165, 496, 7600 #### [facility] [place] [address] Ethnology Teacher: Mauricio Kern MD Creatinine [Mass/Vol] 1.73 mg/dL High 0.60-0.93 [facility] Comment on above: Result Comment: For patients >49 years of age, the reference limit for Creatinine is approximately 13% higher for people identified as -Latvian. Performed By: #### 1 0165, 496, 7600 #### [facility] [place] [address] Ethnology Teacher: Mauricio Kern MD eGFR NON-AFR. KOSOVAN 28 mL/min/1.73m2 Low > OR = 60 [facility] Comment on above: Performed By: #### 1 0165, 496, 7600 #### [facility] [place] [address] Ethnology Teacher: Mauricio Kern MD GFR/1.73 sq M.predicted among blacks MDRD (S/P/Bld) [Vol rate/Area] 32 mL/min/{1.73_m2} Low > OR = 60 [facility] Comment on above: Performed By: #### 1 0165, 496, 7600 #### [facility] [place] [address] Ethnology Teacher: Mauricio Kern MD Glucose [Mass/Vol] 137 mg/dL High 65-99 [facility] Comment on above: Result Comment: Fasting reference interval For someone without known diabetes, a glucose value >125 mg/dL indicates that they may have diabetes and this should be confirmed with a follow-up test. Performed By: #### 1 0165, 496, 7600 #### [facility] [place] [address] Ethnology Teacher: Mauricio Kern MD Potassium [Moles/Vol] 4.6 mmol/L Normal 3.5-5.3 [facility] Comment on above: Performed By: #### 1 0165, 496, 7600 #### [facility] [place] [address] Ethnology Teacher: Mauricio Kern MD Sodium [Moles/Vol] 142 mmol/L Normal 135-146 [facility] Comment on above: Performed By: #### 1 0165, 496, 7600 #### [facility] [place] [address] Ethnology Teacher: Mauricio Kern MD Urea nitrogen [Mass/Vol] 65 mg/dL High 7-25 [facility] Comment on above: Performed By: #### 1 0165, 496, 7600 #### [facility] [place] [address] Ethnology Teacher: Mauricio Kern MD Urea nitrogen/Creatinine [Mass ratio] 38 mg/mg High 6-22 [facility] Comment on above: Performed By: #### 1 0165, 496, 7600 #### [facility] [place] [address] Ethnology Teacher: Mauricio Kern MD HEMOGLOBIN A1con 05-04-2022 HEMOGLOBIN [...] 1 0165, 496, 7600 #### [facility] [address], [address] [place] [address] Ethnology Teacher: Mauricio Kern MD LIPID PANEL, [facility] 04-13 Cholesterol [Mass/Vol] 163 mg/dL Normal <200 [facility] Comment on above: Order Comment: FASTI NG:YES PATIENT UNABLE TO VOID; ADVISED TO RETURN FOR COLLECTION. FASTING: YES Performed By: #### 1 0165, 496, 7600 #### [facility] [address], [address] [place] [address] Ethnology Teacher: Mauricio Kern MD Cholesterol in HDL [Mass/Vol] 51 mg/dL Normal > OR = 50 [facility] Comment on above: Order Comment: FASTI NG:YES PATIENT UNABLE TO VOID; ADVISED TO RETURN FOR COLLECTION. FASTING: YES Performed By: #### 1 0165, 496, 7600 #### [facility] [address], [address] [place] [address] Ethnology Teacher: Mauricio Kern MD Cholesterol in LDL [Mass/Vol] [...] factors. LDL-C is now calculated using the Sean-Farr calculation, which is a validated novel method providing better accuracy than the Friedewald equation in the estimation of LDL-C. Sean BREAUX et al. SHRUTHI. 2013;310(19): 6624-0325 (http://education.Demandbase/faq/TOK071) Performed By: #### 1 0165, 496, 7600 #### [facility] [address], [address] [place] [address] Ethnology Teacher: Mauricio Kern MD Cholesterol.total/C holesterol in HDL [Mass ratio] 3.2 {ratio} Normal <5.0 [facility] Comment on above: Order Comment: FASTI NG:YES PATIENT UNABLE TO VOID; ADVISED TO RETURN FOR COLLECTION. FASTING: YES Performed By: #### 1 0165, 496, 7600 #### [facility] [address], [address] [place] [address] Ethnology Teacher: Mauricio Kern MD NON HDL CHOLESTEROL 112 [...] 1 0165, 496, 7600 #### [facility] [address], [address] [place] [address] Ethnology Teacher: Mauricio Kern MD Triglyceride [Mass/Vol] 181 mg/dL High <150 [facility] Comment on above: Order Comment: FASTI NG:YES PATIENT UNABLE TO VOID; ADVISED TO RETURN FOR COLLECTION. FASTING: YES Performed By: #### 1 0165, 496, 7600 #### [facility] [address], [address] [place] [address] Ethnology Teacher: Mauricio Kern MD PTH INTACTon 03-31-2022 PTH, Intact 111 pg/mL Critically high 15-65 [facility] Comment on above: Performed By: #### M G, URIC, RENAL #### [facility] [address] [place] [address] Dr. Nacho Jeffery FERRITINon 03-30-2022 Ferritin [Mass/Vol] 479.0 ng/mL Critically high 8.0-252.0 [facility] Comment on above: Performed By: #### M G, URIC, RENAL #### [facility] [address] [place] [address] Dr. Nacho Jeffery HEMOGRAM AND PLATELon 2021 Hematocrit (Bld) [Volume fraction] 38.1 % Normal 36.0-48.0 [facility] Comment on above: Performed By: #### M G, URIC, RENAL #### [facility] [address] [place] [address] Dr. Nacho Jeffery Hemoglobin (Bld) [Mass/Vol] 12.9 g/dL Normal 12.0-16.0 [facility] Comment on above: Performed By: #### M G, URIC, RENAL #### [facility] [address] [place] [address] Dr. Nacho Jeffery MCH (RBC) [Entitic mass] 32.8 pg Normal 26.7-34.0 [facility] Comment on above: Performed By: #### M G, URIC, RENAL #### [facility] [address] [place] [address] Dr. Nacho Jeffery MCHC (RBC) [Mass/Vol] 33.9 g/dL Normal 29.9-35.2 [facility] Comment on above: Performed By: #### M G, URIC, RENAL #### [facility] [address] [place] [address] Dr. Nacho Jeffery MCV (RBC) [Entitic vol] 96.9 fL Normal 81.0-99.0 [facility] Comment on above: Performed By: #### M G, URIC, RENAL #### [facility] [address] [place] [address] Dr. Nacho Jeffery PLT 191 103/ul Normal 150-450 [facility] Comment on above: Performed By: #### M G, URIC, RENAL #### [facility] [address] [place] [address] Dr. Nacho Jeffery RBC 3.93 106/ul Critically low 4.20-5.40 [facility] Comment on above: Performed By: #### M Jamarcus URIC, RENAL #### [facility] [address] [address] [address] Nacho Jeffery WBC 7.2 103/ul Normal 4.0-11.0 [facility] Comment on above: Performed By: #### M Jamarcus, URIC, RENAL #### [facility] [address] [address] [address] Nacho Jeffery IRON AND TIBCon 03-30-2022 % SATURATION 21.6 % Normal [facility] Comment on above: Performed By: #### M Jamarcus, URIC, RENAL #### [facility] [address] [place] [address] Dr. Nacho Jeffery Iron [Mass/Vol] 63.0 ug/dL Normal 50.0-170.0 [facility] Comment on above: Performed By: #### M Jamarcus, URIC, RENAL #### [facility] [address] [place] [address] Dr. Nacho Jeffery TIBC DIRECT 292.0 ug/dL Normal 250.0-450.[address] [facility] Comment on above: Performed By: #### M Jamarcus URIC, RENAL #### [facility] [address] [address] [address] Nacho Jeffery MAGNESIUMon 03-30-2022 Magnesium [Mass/Vol] 1.7 mg/dL Critically low 1.8-2.4 [facility] Comment on above: Performed By: #### M Jamarcus, URIC, RENAL #### [facility] [address] [address] [address] Nacho Jeffery RENAL FUNCTION PANELon 03-30 Albumin [Mass/Vol] 3.4 g/dL Normal 3.4-5.0 [facility] Comment on above: Performed By: #### M Jamarcus, URIC, RENAL #### [facility] [address] [address] [address] Nacho Jeffery Calcium [Mass/Vol] 9.3 mg/dL Normal 8.5-10.1 [facility] Comment on above: Performed By: #### M G, URIC, RENAL #### [facility] [address] [address] [address] Nacho Jeffery Chloride [Moles/Vol] 102 mmol/L Normal 98-107 [facility] Comment on above: Performed By: #### M G, URIC, RENAL #### [facility] [address] [place] [address] Dr. Nacho Jeffery CO2 [Moles/Vol] 31.7 mmol/L Normal 21.0-32.0 [facility] Comment on above: Performed By: #### M G, URIC, RENAL #### [facility] [address] [place] [address] Dr. Nacho Jeffery Creatinine [Mass/Vol] 2.05 mg/dL Critically high 0.55-1.02 [facility] Comment on above: Performed By: #### M G, URIC, RENAL #### [facility] [address] [place] [address] Dr. Nacho Jeffery EGFR-AF KOSOVAN 28 mL/min/1.73m2 Critically low >=60 [facility] Comment on above: Performed By: #### M G, URIC, RENAL #### [facility] [address] [place] [address] Dr. Nacho Jeffery EGFR-NON AF KOSOVAN 23 mL/min/1.73m2 Critically low >=60 [facility] Comment on above: Performed By: #### M G, URIC, RENAL #### [facility] [address] [place] [address] Dr. Nacho Jeffery Glucose [Mass/Vol] 194 mg/dL Critically high 74-106 [facility] Comment on above: Performed By: #### M G, URIC, RENAL #### [facility] [address] [place] [address] Dr. Nacho Jeffery Phosphate [Mass/Vol] 3.2 mg/dL Normal 2.6-4.7 [facility] Comment on above: Performed By: #### M G, URIC, RENAL #### [facility] [address] [place] [address] Dr. Nacho Jeffery Potassium [Moles/Vol] 4.6 mmol/L Normal 3.5-5.1 [facility] Comment on above: Performed By: #### M G, URIC, RENAL #### [facility] [address] [address] [address] Nacho Jeffery Sodium [Moles/Vol] 141 mmol/L Normal 136-145 [facility] Comment on above: Performed By: #### M G, URIC, RENAL #### [facility] [address] [address] [address] Nacho Jeffery Urea nitrogen [Mass/Vol] 64.0 mg/dL Critically high 7.0-18.0 [facility] Comment on above: Performed By: #### M G, URIC, RENAL #### [facility] [address] [place] [address] Dr. Nacho Jeffery UA RANDOM W/MICROSCOPICon BACTERIA NONE SEEN Normal NONE SEEN [facility] Comment on above: Performed By: #### M G, URIC, RENAL #### [facility] [address] [place] [address] Dr. Nacho Jeffery Bilirubin Ql (U) Negative Normal NEGATIVE [facility] Comment on above: Performed By: #### M G, URIC, RENAL #### [facility] [address] [place] [address] Dr. Nacho Jeffery CAST NONE SEEN Normal NONE SEEN [facility] Comment on above: Performed By: #### M G, URIC, RENAL #### [facility] [address] [place] [address] Dr. Nacho Jeffery Clarity (U) CLEAR Normal CLEAR [facility] Comment on above: Performed By: #### M G, URIC, RENAL #### [facility] [address] [place] [address] Dr. Nacho Jeffery Color (U) LT. YELLOW Normal YELLOW [facility] Comment on above: Performed By: #### M G, URIC, RENAL #### [facility] [address] [address] [address] Nacho Jeffery Crystals LM Nom (Urine sed) NONE SEEN Normal NONE SEEN [facility] Comment on above: Performed By: #### M G, URIC, RENAL #### [facility] [address] [address] [address] Nacho Jeffery Epithelial cells LM Ql (Urine sed) FEW Abnormal NONE SEEN /RARE [facility] Comment on above: Performed By: #### M G, URIC, RENAL #### [facility] [address] [address] [address] Nacho Jeffery Glucose Ql (U) Negative Normal NEGATIVE [facility] Comment on above: Performed By: #### M G, URIC, RENAL #### [facility] [address] [address] [address] Nacho Jeffery Hemoglobin Ql (U) Negative Normal NEGATIVE [facility] Comment on above: Performed By: #### M G, URIC, RENAL #### [facility] [address] [place] [address] Dr. Nacho Jeffery Ketones Ql (U) Negative Normal NEGATIVE [facility] Comment on above: Performed By: #### M G, URIC, RENAL #### [facility] [address] [place] [address] Dr. Nacho Jeffery LEUKOCYTES SMALL Abnormal NEGATIVE [facility] Comment on above: Performed By: #### M G, URIC, RENAL #### [facility] [address] [address] [address] Nacho Jeffery MUCOUS NONE SEEN Normal NONE SEEN [facility] Comment on above: Performed By: #### M G, URIC, RENAL #### [facility] [address] [address] [address] Nacho Jeffery Nitrite Ql (U) Negative Normal NEGATIVE [facility] Comment on above: Performed By: #### M G, URIC, RENAL #### [facility] [address] [place] [address] Dr. Nacho Jeffery pH (U) 5.5 [pH] Normal 5-9 [facility] Comment on above: Performed By: #### M G, URIC, RENAL #### [facility] [address] [place] [address] Dr. Nacho Jeffery RBC 0-2 Normal 0-2 [facility] Comment on above: Performed By: #### M G, URIC, RENAL #### [facility] [address] [place] [address] Dr. Nacho Jeffery SPEC GRAVITY 1.015 Normal 1.005-<=1.025 [facility] Comment on above: Performed By: #### M G, URIC, RENAL #### [facility] [address] [place] [address] Dr. Nacho Jeffery UA PROTEIN Negative Normal NEGATIVE/ TRACE [facility] Comment on above: Performed By: #### M G, URIC, RENAL #### [facility] [address] [place] [address] Dr. Nacho Jeffery Urobilinogen Qn (U) 0.2 {Zuleyka'U}/dL Normal 0.2 - 1. 0 [facility] Comment on above: Performed By: #### M G, URIC, RENAL #### [facility] [address] [place] [address] Dr. Nacho Jeffery WBC 5-10 Abnormal NONE SEEN [facility] Comment on above: Performed By: #### M G, URIC, RENAL #### [facility] [address] [place] [address] Dr. Nacho Jeffery URIC ACID SERUMon 03-30-2022 Urate [Mass/Vol] 7.0 mg/dL Critically high 2.6-6.0 [facility] Comment on above: Performed By: #### M G, URIC, RENAL #### [facility] [address] [place] [address] Dr. Nacho Jeffery URINE T PROTEIN CREAT RATIOo n 03-30-2022 Protein (U) [Mass/Vol] 7.1 mg/dL Normal <=12.0 [facility] Comment on above: Performed By: #### U RTPCR #### [facility] [address] [place] [address] Dr. Nacho Jeffery UR PROT CREAT RAT 0.06 Normal [facility] Comment on above: Performed By: #### U RTPCR #### [facility] [address] [address] [address] Nacho Jeffery URINE CREAT 113.23 mg/dL Normal 20.00-300.00 [facility] Comment on above: Performed By: #### U RTPCR #### [facility] [address] [place] [address] Dr. Nacho Jeffery VITAMIN D 25 OHon 03-30-2022 VIT D 25-OH 57.4 ng/mL Normal [facility] Comment on above: Performed By: #### M G, URIC, RENAL #### [facility] [address] [place], [place] [address] Dr. Nacho Jeffery VIT D RANGES SEE BELOW Normal [facility] Comment on above: Result Comment: <20 ng/mL Vit D deficient 20 - <30 ng/mL Vit D insufficient 30 - 100 ng/mL Vit D sufficient >100 ng/mL Potential Toxicity Performed By: #### M G, URIC, RENAL #### [facility] [address] [place] [address] Dr. Nacho Jeffery COMPREHENSIVE METABOLIC PANE Jared 08-30-2021 Albumin [Mass/Vol] 3.7 g/dL Normal 3.6-5.1 [facility] Comment on above: Performed By: #### 1 890, 4560 #### [facility] [address] [place] [address] Ethnology Teacher: Mauricio Kern MD Albumin/Globulin [Mass ratio] 1.4 {ratio} Normal 1.0-2.5 [facility] Comment on above: Performed By: #### 1 230, 0 #### [facility] [address] Ethnology Teacher: Mauricio Kern MD ALP [Catalytic activity/Vol] 98 U/L Normal 37-153 [facility] Comment on above: Performed By: #### 1 023, 3740 #### [facility] [address] Ethnology Teacher: Mauricio Kern MD ALT [Catalytic activity/Vol] 23 U/L Normal 6-29 [facility] Comment on above: Performed By: #### 1 023, 7600 #### [facility] of [address] [address] Ethnology Teacher: Mauricio Kern MD AST [Catalytic activity/Vol] 22 U/L Normal 10-35 [facility] Comment on above: Performed By: #### 1 023, 7600 #### [facility] of [address] [place] [address] Ethnology Teacher: Mauricio Kern MD Bilirubin [Mass/Vol] 0.4 mg/dL Normal 0.2-1.2 [facility] Comment on above: Performed By: #### 1 023, 7600 #### [facility] of [address] [place] [address] Ethnology Teacher: Mauricio Kern MD Calcium [Mass/Vol] 9.2 mg/dL Normal 8.6-10.4 [facility] Comment on above: Performed By: #### 1 023, 7600 #### [facility] of [address] [place] [address] Ethnology Teacher: Mauricio Kern MD Chloride [Moles/Vol] 103 mmol/L Normal 98-110 [facility] Comment on above: Performed By: #### 1 023, 7600 #### [facility] of [address] [place] [address] Ethnology Teacher: Mauricio Kern MD CO2 [Moles/Vol] 28 mmol/L Normal 20-32 [facility] Comment on above: Performed By: #### 1 023, 7600 #### [facility] of [address] [place] [address] Ethnology Teacher: Mauricio Kern MD Creatinine [Mass/Vol] 2.22 mg/dL High 0.60-0.93 [facility] Comment on above: Result Comment: For patients >49 years of age, the reference limit for Creatinine is approximately 13% higher for people identified as -Latvian. Performed By: #### 1 023, 7600 #### [facility] of [address] [place] [address] Ethnology Teacher: Mauricio Kern MD eGFR NON-AFR. KOSOVAN 21 mL/min/1.73m2 Low > OR = 60 [facility] Comment on above: Performed By: #### 1 023, 7600 #### [facility] [place] [address] Ethnology Teacher: Mauricio Kern MD GFR/1.73 sq M.predicted among blacks MDRD (S/P/Bld) [Vol rate/Area] 24 mL/min/{1.73_m2} Low > OR = 60 [facility] Comment on above: Performed By: #### 1 230, 7600 #### [facility] [address] [place] [address] Ethnology Teacher: Mauricio Kern MD Globulin (S) [Mass/Vol] 2.7 g/dL Normal 1.9-3.7 [facility] Comment on above: Performed By: #### 1 230, 7600 #### [facility] [place] [address] Ethnology Teacher: Mauricio Kern MD Glucose [Mass/Vol] 107 mg/dL High 65-99 [facility] Comment on above: Result Comment: Fasting reference interval For someone without known diabetes, a glucose value between 100 and 125 mg/dL is consistent with prediabetes and should be confirmed with a follow-up test. Performed By: #### 1 230, 7600 #### [facility] [place] [address] Ethnology Teacher: Mauricio Kern MD Potassium [Moles/Vol] 4.7 mmol/L Normal 3.5-5.3 [facility] Comment on above: Performed By: #### 1 023, 7600 #### [facility] [place] [address] Ethnology Teacher: Mauricio Kern MD Protein [Mass/Vol] 6.4 g/dL Normal 6.1-8.1 [facility] Comment on above: Performed By: #### 1 230, 7600 #### [facility] of [address], [address] [place] [address] Ethnology Teacher: Mauricio Kern MD Sodium [Moles/Vol] 141 mmol/L Normal 135-146 [facility] Comment on above: Performed By: #### 1 0231, 7600 #### [facility] of [address], [address] [place] [address] Ethnology Teacher: Mauricio Kern MD Urea nitrogen [Mass/Vol] 69 mg/dL High 7-25 [facility] Comment on above: Performed By: #### 1 0231, 7600 #### [facility] of [address], [address] [place] [address] Ethnology Teacher: Mauricio Kern MD Urea nitrogen/Creatinine [Mass ratio] 31 mg/mg High 6-22 [facility] Comment on above: Performed By: #### 1 0231, 7600 #### [facility] of [address], [address] [place] [address] Ethnology Teacher: Mauricio Kern MD [address] [place] [address] Cholesterol [Mass/Vol] 142 mg/dL Normal <200 [facility] Comment on above: Order Comment: FASTI NG:YES FASTING: YES Performed By: #### 1 0231, 7600 #### [facility] of [address], [address] [place] [address] Ethnology Teacher: Mauricio Kern MD Cholesterol in HDL [Mass/Vol] 47 mg/dL Low > OR = 50 [facility] Comment on above: Order Comment: FASTI NG:YES FASTING: YES Performed By: #### 1 0231, 7600 #### [facility] of [address], [address] [place] [address] Ethnology Teacher: Mauricio Kern MD Cholesterol in LDL [Mass/Vol] [...] LDL-C. Sean BREAUX et al. SHRUTHI. 2013;310(19): 8714-0309 (http://education.Demandbase/faq/EYW226) Performed By: #### 1 023, 7600 #### [facility] [address], [address] [place] [address] Ethnology Teacher: Mauricio Kern MD Cholesterol.total/C holesterol in HDL [Mass ratio] 3.0 {ratio} Normal <5.0 [facility] Comment on above: Order Comment: FASTI NG:YES FASTING: YES Performed By: #### 1 023, 0 #### [facility] [address], [address] [place] [address] Ethnology Teacher: Mauricio Kern MD NON HDL CHOLESTEROL 95 mg/dL (calc) Normal <130 [facility] Comment on above: Order Comment: FASTI NG:YES FASTING: YES Result Comment: For patients with diabetes plus 1 major ASCVD risk factor, treating to a non-HDL-C goal of <100 mg/dL (LDL-C of <70 mg/dL) is considered a therapeutic option. Performed By: #### 1 023, 0 #### [facility] [address], [address] [place] [address] Ethnology Teacher: Mauricio Kern MD Triglyceride [Mass/Vol] 188 mg/dL High <150 [facility] Comment on above: Order Comment: FASTI NG:YES FASTING: YES Performed By: #### 1 023, 7600 #### [facility] [address] [place] [address] Ethnology Teacher: Mauricio Kern MD BASIC METABOLIC PANELon 05- Calcium [Mass/Vol] 10.0 mg/dL Normal 8.6-10.3 [facility] Comment on above: Performed By: #### 0 0071 #### [facility] [address] [place] [address], [place] Chloride [Moles/Vol] 101 mmol/L Normal 98-107 [facility] Comment on above: Performed By: #### 0 0071 #### [facility] [address] [place] [address], [place] CO2 [Moles/Vol] 28 mmol/L Normal 21-31 [facility] Comment on above: Performed By: #### 0 0071 #### [facility] [address] [place] [address], [place] Creatinine [Mass/Vol] 1.96 mg/dL High 0.60-1.20 [facility] Comment on above: Performed By: #### 0 0071 #### [facility] [address] [place] [address], [facility] eGFR- 30 ml/min/1.73sq m Abnormal >60 [facility] Comment on above: Result Comment: Calc ulation may not be valid for patients over 70 years Performed By: #### 0 0071 #### [facility] [address] [place] [address], [facility] eGFR- non- 24 ml/min/1.73sq m Abnormal >60 [facility] Comment on above: Result Comment: Calc ulation may not be valid for patients over 70 years Performed By: #### 0 0071 #### [facility] [address] [place] [address], [place] Glucose [Mass/Vol] 171 mg/dL High 70-100 [facility] Comment on above: Performed By: #### 0 0071 #### [facility] [address] [place] [address], [place] Potassium [Moles/Vol] 3.9 mmol/L Normal 3.5-5.1 [facility] Comment on above: Performed By: #### 0 0071 #### [facility] [address] [place] [address], [facility] Sodium [Moles/Vol] 139 mmol/L Normal 136-145 [facility] Comment on above: Performed By: #### 0 0071 #### [facility] [address] [place] [address], [facility] Urea nitrogen [Mass/Vol] 66 mg/dL High 7-25 [facility] Comment on above: Performed By: #### 0 0071 #### [facility] [address] [place] [address], [facility] Cardiovascular Lab Reporton 03-30-2021 Cardiovascular Lab Report [facility] Patient Name: Adore Wolff [facility] MR #: [id number] Physician: Moe Parham, Department of M.D. Medicine Service Date: 03/30/2021 Division of Birthdate: 1940 Cardiology Room #: Adult Cardiovascular Services [facility] [address] [place], [place] [address] Cardiovascular Laboratory Report FINAL IMPRESSIONS: 1. Moderate [...] inhibitor/receptor micki. 4. Follow up with [facility] Cardiology in the next 2 to [...] the left radial artery was obtained. A 6-Cymro glide sheath was inserted without difficulty. Bilateral selective coronary angiography was performed using JL4 and a 4-Cymro 3DRC catheter. After reviewing the images and [...] Parham M.D. Date Trans: 03/30/2021 03:19 P/molly [id number] cc: Fernie Clark M.D. [address] [place] [address] Normal [facility] Vital Signs Date Time Vital Sign Value Performing Clinician Facility 12-26-2024 09:33-0500 Body temperature 97.7 [degF] Fernie Furlong DO Work Phone: [facility] 12-26-2024 09:33-0500 Diastolic blood pressure 78 mm[Hg] Fernie Furlong DO Work Phone: [facility] 12-26-2024 09:33-0500 Heart rate 64 /min Fernie Furlong DO Work Phone: [facility] 12-26-2024 09:33-0500 Respiratory rate 18 /min Fernie Furlong DO Work Phone: [facility] 12-26-2024 09:33-0500 SaO2% (BldA) [Mass fraction] 98 % Fernie Furlong DO Work Phone: [facility] 12-26-2024 09:33-0500 Systolic blood pressure 178 mm[Hg] Fernie Furlong DO Work Phone: [facility] 12-19-2024 11:12-0500 Body mass index (BMI) [Ratio] 43.27 kg/m2 Fernie Furlong DO Work Phone: [facility] 12-19-2024 11:12-0500 Body temperature 97.7 [degF] Fernie Furlong DO Work Phone: [facility] 12-19-2024 11:12-0500 Body weight 117.94 kg Fernie Furlong DO Work Phone: [facility] 12-19-2024 11:12-0500 Heart rate 60 /min Fernie Furlong DO Work Phone: [facility] 12-19-2024 11:12-0500 Respiratory rate 18 /min Fernie Furlong DO Work Phone: [facility] 12-19-2024 11:12-0500 SaO2% (BldA) [Mass fraction] 95 % Fernie Furlong DO Work Phone: [facility] 11-04-2024 09:42-0500 Body height 165.1 cm Pfo 1 [facility] 11-04-2024 09:42-0500 Body mass index (BMI) [Ratio] 45.26 kg/m2 Pfo 1 [facility] 11-04-2024 09:42-0500 Body temperature 97.5 [degF] Pfo 1 [facility] 11-04-2024 09:42-0500 Body weight 123.38 kg Pfo 1 [facility] 11-04-2024 09:42-0500 Diastolic blood pressure 65 mm[Hg] Pfo 1 [facility] 11-04-2024 09:42-0500 Heart rate 65 /min Pfo 1 [facility] 11-04-2024 09:42-0500 Respiratory rate 18 /min Pfo 1 [facility] 11-04-2024 09:42-0500 SaO2% (BldA) [Mass fraction] 98 % Pfo 1 [facility] 11-04-2024 09:42-0500 Systolic blood pressure 153 mm[Hg] Pfo 1 [facility] 10-07-2024 09:29-0500 Body height 165.1 cm Pfo 2 [facility] 10-07-2024 09:29-0500 Body mass index (BMI) [Ratio] 45.26 kg/m2 Pfo 2 [facility] 10-07-2024 09:29-0500 Body temperature 97.59 [degF] Pfo 2 [facility] 10-07-2024 09:29-0500 Body weight 123.38 kg Pfo 2 [facility] 10-07-2024 09:29-0500 Diastolic blood pressure 63 mm[Hg] Pfo 2 [facility] 10-07-2024 09:29-0500 Heart rate 72 /min Pfo 2 [facility] 10-07-2024 09:29-0500 Respiratory rate 18 /min Pfo 2 [facility] 10-07-2024 09:29-0500 SaO2% (BldA) [Mass fraction] 94 % Pfo 2 [facility] 10-07-2024 09:29-0500 Systolic blood pressure 155 mm[Hg] Pfo 2 [facility] 10-01-2024 09:24-0500 Body height 165.1 cm Pfo 5 [facility] 10-01-2024 09:24-0500 Body mass index (BMI) [Ratio] 45.26 kg/m2 Pfo 5 [facility] 10-01-2024 09:24-0500 Body temperature 97.39 [degF] Pfo 5 [facility] 10-01-2024 09:24-0500 Body weight 123.38 kg Pfo 5 [facility] 10-01-2024 09:24-0500 Diastolic blood pressure 56 mm[Hg] Pfo 5 [facility] 10-01-2024 09:24-0500 Heart rate 76 /min Pfo 5 [facility] 10-01-2024 09:24-0500 Respiratory rate 16 /min Pfo 5 [facility] 10-01-2024 09:24-0500 SaO2% (BldA) [Mass fraction] 96 % Pfo 5 [facility] 10-01-2024 09:24-0500 Systolic blood pressure 153 mm[Hg] Pfo 5 [facility] 09-10-2024 09:21-0400 Body temperature 97.7 [degF] Pfo 5 [facility] 09-10-2024 09:21-0400 Diastolic blood pressure 61 mm[Hg] Pfo 5 [facility] 09-10-2024 09:21-0400 Heart rate 68 /min Pfo 5 [facility] 09-10-2024 09:21-0400 Respiratory rate 18 /min Pfo 5 [facility] 09-10-2024 09:21-0400 SaO2% (BldA) [Mass fraction] 99 % Pfo 5 [facility] 09-10-2024 09:21-0400 Systolic blood pressure 164 mm[Hg] Pfo 5 [facility] 08-27-2024 09:27-0400 Body height 165.1 cm Pfo 5 [facility] 08-27-2024 09:27-0400 Body mass index (BMI) [Ratio] 46.1 kg/m2 Pfo 5 [facility] 08-27-2024 09:27-0400 Body temperature 97.39 [degF] Pfo 5 [facility] 08-27-2024 09:27-0400 Body weight 125.65 kg Pfo 5 [facility] 08-27-2024 09:27-0400 Diastolic blood pressure 86 mm[Hg] Pfo 5 [facility] 08-27-2024 09:27-0400 Heart rate 75 /min Pfo 5 [facility] 08-27-2024 09:27-0400 Respiratory rate 16 /min Pfo 5 [facility] 08-27-2024 09:27-0400 SaO2% (BldA) [Mass fraction] 98 % Pfo 5 [facility] 08-27-2024 09:27-0400 Systolic blood pressure 151 mm[Hg] Pfo 5 [facility] 08-20-2024 09:17-0400 Body height 165.1 cm Pfo 5 [facility] 08-20-2024 09:17-0400 Body mass index (BMI) [Ratio] 46.1 kg/m2 Pfo 5 [facility] 08-20-2024 09:17-0400 Body temperature 97.59 [degF] Pfo 5 [facility] 08-20-2024 09:17-0400 Body weight 125.65 kg Pfo 5 [facility] 08-20-2024 09:17-0400 Diastolic blood pressure 67 mm[Hg] Pfo 5 [facility] 08-20-2024 09:17-0400 Heart rate 66 /min Pfo 5 [facility] 08-20-2024 09:17-0400 Respiratory rate 16 /min Pfo 5 [facility] 08-20-2024 09:17-0400 SaO2% (BldA) [Mass fraction] 99 % Pfo 5 [facility] 08-20-2024 09:17-0400 Systolic blood pressure 167 mm[Hg] Pfo 5 [facility] 08-13-2024 09:20-0400 Body height 165.1 cm Pfo 4 [facility] 08-13-2024 09:20-0400 Body mass index (BMI) [Ratio] 46.1 kg/m2 Pfo 4 [facility] 08-13-2024 09:20-0400 Body temperature 97.59 [degF] Pfo 4 [facility] 08-13-2024 09:20-0400 Body weight 125.65 kg Pfo 4 [facility] 08-13-2024 09:20-0400 Diastolic blood pressure 65 mm[Hg] Pfo 4 [facility] 08-13-2024 09:20-0400 Heart rate 70 /min Pfo 4 [facility] 08-13-2024 09:20-0400 Respiratory rate 16 /min Pfo 4 [facility] 08-13-2024 09:20-0400 SaO2% (BldA) [Mass fraction] 96 % Pfo 4 [facility] 08-13-2024 09:20-0400 Systolic blood pressure 169 mm[Hg] Pfo 4 [facility] 08-06-2024 09:27-0400 Body height 165.1 cm Pfo 5 [facility] 08-06-2024 09:27-0400 Body mass index (BMI) [Ratio] 46.1 kg/m2 Pfo 5 [facility] 08-06-2024 09:27-0400 Body temperature 97.5 [degF] Pfo 5 [facility] 08-06-2024 09:27-0400 Body weight 125.65 kg Pfo 5 [facility] 08-06-2024 09:27-0400 Diastolic blood pressure 54 mm[Hg] Pfo 5 [facility] 08-06-2024 09:27-0400 Heart rate 73 /min Pfo 5 [facility] 08-06-2024 09:27-0400 Respiratory rate 16 /min Pfo 5 [facility] 08-06-2024 09:27-0400 SaO2% (BldA) [Mass fraction] 95 % Pfo 5 [facility] 08-06-2024 09:27-0400 Systolic blood pressure 160 mm[Hg] Pfo 5 [facility] 07-30-2024 09:22-0400 Body height 165.1 cm Pfo 5 [facility] 07-30-2024 09:22-0400 Body mass index (BMI) [Ratio] 46.26 kg/m2 Pfo 5 [facility] 07-30-2024 09:22-0400 Body temperature 97.2 [degF] Pfo 5 [facility] 07-30-2024 09:22-0400 Body weight 126.1 kg Pfo 5 [facility] 07-30-2024 09:22-0400 Diastolic blood pressure 63 mm[Hg] Pfo 5 [facility] 07-30-2024 09:22-0400 Heart rate 68 /min Pfo 5 [facility] 07-30-2024 09:22-0400 Respiratory rate 16 /min Pfo 5 [facility] 07-30-2024 09:22-0400 SaO2% (BldA) [Mass fraction] 94 % Pfo 5 [facility] 07-30-2024 09:22-0400 Systolic blood pressure 148 mm[Hg] Pfo 5 [facility] 07-23-2024 09:25-0400 Body height 165.1 cm Pfo 5 [facility] 07-23-2024 09:25-0400 Body mass index (BMI) [Ratio] 46.26 kg/m2 Pfo 5 [facility] 07-23-2024 09:25-0400 Body weight 126.1 kg Pfo 5 [facility] 07-23-2024 09:25-0400 Diastolic blood pressure 55 mm[Hg] Pfo 5 [facility] 07-23-2024 09:25-0400 Heart rate 62 /min Pfo 5 [facility] 07-23-2024 09:25-0400 Respiratory rate 16 /min Pfo 5 [facility] 07-23-2024 09:25-0400 SaO2% (BldA) [Mass fraction] 97 % Pfo 5 [facility] 07-23-2024 09:25-0400 Systolic blood pressure 155 mm[Hg] Pfo 5 [facility] 07-16-2024 09:44-0400 Body height 165.1 cm Pfo 5 [facility] 07-16-2024 09:44-0400 Body mass index (BMI) [Ratio] 46.26 kg/m2 Pfo 5 [facility] 07-16-2024 09:44-0400 Body temperature 97.7 [degF] Pfo 5 [facility] 07-16-2024 09:44-0400 Body weight 126.1 kg Pfo 5 [facility] 07-16-2024 09:44-0400 Diastolic blood pressure 54 mm[Hg] Pfo 5 [facility] 07-16-2024 09:44-0400 Heart rate 70 /min Pfo 5 [facility] 07-16-2024 09:44-0400 Respiratory rate 16 /min Pfo 5 [facility] 07-16-2024 09:44-0400 SaO2% (BldA) [Mass fraction] 100 % Pfo 5 [facility] 07-16-2024 09:44-0400 Systolic blood pressure 160 mm[Hg] Pfo 5 [facility] 07-09-2024 09:49-0400 Body height 165.1 cm Pfo 1 [facility] 07-09-2024 09:49-0400 Body mass index (BMI) [Ratio] 46.26 kg/m2 Pfo 1 [facility] 07-09-2024 09:49-0400 Body temperature 98.2 [degF] Pfo 1 [facility] 07-09-2024 09:49-0400 Body weight 126.1 kg Pfo 1 [facility] 07-09-2024 09:49-0400 Diastolic blood pressure 52 mm[Hg] Pfo 1 [facility] 07-09-2024 09:49-0400 Heart rate 78 /min Pfo 1 [facility] 07-09-2024 09:49-0400 Respiratory rate 16 /min Pfo 1 [facility] 07-09-2024 09:49-0400 SaO2% (BldA) [Mass fraction] 96 % Pfo 1 [facility] 07-09-2024 09:49-0400 Systolic blood pressure 147 mm[Hg] Pfo 1 [facility] 07-02-2024 09:34-0400 Body height 165.1 cm Pfo 1 [facility] 07-02-2024 09:34-0400 Body mass index (BMI) [Ratio] 46.26 kg/m2 Pfo 1 [facility] 07-02-2024 09:34-0400 Body temperature 97.39 [degF] Pfo 1 [facility] 07-02-2024 09:34-0400 Body weight 126.1 kg Pfo 1 [facility] 07-02-2024 09:34-0400 Diastolic blood pressure 60 mm[Hg] Pfo 1 [facility] 07-02-2024 09:34-0400 Heart rate 66 /min Pfo 1 [facility] 07-02-2024 09:34-0400 Respiratory rate 16 /min Pfo 1 [facility] 07-02-2024 09:34-0400 SaO2% (BldA) [Mass fraction] 98 % Pfo 1 [facility] 07-02-2024 09:34-0400 Systolic blood pressure 153 mm[Hg] Pfo 1 [facility] 06-25-2024 09:26-0400 Body height 165.1 cm Pfo 7 [facility] 06-25-2024 09:26-0400 Body mass index (BMI) [Ratio] 46.26 kg/m2 Pfo 7 [facility] 06-25-2024 09:26-0400 Body temperature 97.39 [degF] Pfo 7 [facility] 06-25-2024 09:26-0400 Body weight 126.1 kg Pfo 7 [facility] 06-25-2024 09:26-0400 Diastolic blood pressure 66 mm[Hg] Pfo 7 [facility] 06-25-2024 09:26-0400 Heart rate 83 /min Pfo 7 [facility] 06-25-2024 09:26-0400 Respiratory rate 16 /min Pfo 7 [facility] 06-25-2024 09:26-0400 SaO2% (BldA) [Mass fraction] 98 % Pfo 7 [facility] 06-25-2024 09:26-0400 Systolic blood pressure 156 mm[Hg] Pfo 7 [facility] 06-18-2024 09:30-0400 Body height 165.1 cm Pfo 1 [facility] 06-18-2024 09:30-0400 Body mass index (BMI) [Ratio] 46.1 kg/m2 Pfo 1 [facility] 06-18-2024 09:30-0400 Body temperature 97.5 [degF] Pfo 1 [facility] 06-18-2024 09:30-0400 Body weight 125.65 kg Pfo 1 [facility] 06-18-2024 09:30-0400 Diastolic blood pressure 46 mm[Hg] Pfo 1 [facility] 06-18-2024 09:30-0400 Heart rate 72 /min Pfo 1 [facility] 06-18-2024 09:30-0400 Respiratory rate 20 /min Pfo 1 [facility] 06-18-2024 09:30-0400 SaO2% (BldA) [Mass fraction] 95 % Pfo 1 [facility] 06-18-2024 09:30-0400 Systolic blood pressure 148 mm[Hg] Pfo 1 [facility] 06-11-2024 09:21-0400 Body height 165.1 cm Pfo 1 [facility] 06-11-2024 09:21-0400 Body mass index (BMI) [Ratio] 46.26 kg/m2 Pfo 1 [facility] 06-11-2024 09:21-0400 Body temperature 97.59 [degF] Pfo 1 [facility] 06-11-2024 09:21-0400 Body weight 126.1 kg Pfo 1 [facility] 06-11-2024 09:21-0400 Diastolic blood pressure 60 mm[Hg] Pfo 1 [facility] 06-11-2024 09:21-0400 Heart rate 88 /min Pfo 1 [facility] 06-11-2024 09:21-0400 Respiratory rate 20 /min Pfo 1 [facility] 06-11-2024 09:21-0400 SaO2% (BldA) [Mass fraction] 96 % Pfo 1 [facility] 06-11-2024 09:21-0400 Systolic blood pressure 147 mm[Hg] Pfo 1 [facility] 05-28-2024 09:34-0400 Body height 165.1 cm Pfo 1 [facility] 05-28-2024 09:34-0400 Body mass index (BMI) [Ratio] 46.43 kg/m2 Pfo 1 [facility] 05-28-2024 09:34-0400 Body temperature 97.5 [degF] Pfo 1 [facility] 05-28-2024 09:34-0400 Body weight 126.55 kg Pfo 1 [facility] 05-28-2024 09:34-0400 Diastolic blood pressure 66 mm[Hg] Pfo 1 [facility] 05-28-2024 09:34-0400 Heart rate 71 /min Pfo 1 [facility] 05-28-2024 09:34-0400 Respiratory rate 20 /min Pfo 1 [facility] 05-28-2024 09:34-0400 SaO2% (BldA) [Mass fraction] 99 % Pfo 1 [facility] 05-28-2024 09:34-0400 Systolic blood pressure 152 mm[Hg] Pfo 1 [facility] 05-27-2024 13:09-0400 Body height 165.1 cm Fernie Furlong DO Work Phone: [facility] 05-27-2024 13:09-0400 Body mass index (BMI) [Ratio] 46.64 kg/m2 Fernie Furlong DO Work Phone: [facility] 05-27-2024 13:09-0400 Body temperature 97.9 [degF] Fernie Furlong DO Work Phone: [facility] 05-27-2024 13:09-0400 Body weight 127.14 kg Fernie Furlong DO Work Phone: [facility] 05-27-2024 13:09-0400 Diastolic blood pressure 60 mm[Hg] Fernie Furlong DO Work Phone: [facility] 05-27-2024 13:09-0400 Heart rate 74 /min Fernie Furlong DO Work Phone: [facility] 05-27-2024 13:09-0400 Respiratory rate 18 /min Fernie Furlong DO Work Phone: [facility] 05-27-2024 13:09-0400 SaO2% (BldA) [Mass fraction] 94 % Fernie Furlong DO Work Phone: [facility] 05-27-2024 13:09-0400 Systolic blood pressure 140 mm[Hg] Fernie Furlong DO Work Phone: [facility] 05-21-2024 09:27-0400 Body height 165.1 cm Pfo 1 [facility] 05-21-2024 09:27-0400 Body mass index (BMI) [Ratio] 46.43 kg/m2 Pfo 1 [facility] 05-21-2024 09:27-0400 Body temperature 97.7 [degF] Pfo 1 [facility] 05-21-2024 09:27-0400 Body weight 126.55 kg Pfo 1 [facility] 05-21-2024 09:27-0400 Diastolic blood pressure 46 mm[Hg] Pfo 1 [facility] 05-21-2024 09:27-0400 Heart rate 63 /min Pfo 1 [facility] 05-21-2024 09:27-0400 Respiratory rate 20 /min Pfo 1 [facility] 05-21-2024 09:27-0400 SaO2% (BldA) [Mass fraction] 95 % Pfo 1 [facility] 05-21-2024 09:27-0400 Systolic blood pressure 167 mm[Hg] Pfo 1 [facility] 05-14-2024 09:15-0400 Body height 165.1 cm Pfo 1 [facility] 05-14-2024 09:15-0400 Body mass index (BMI) [Ratio] 46.43 kg/m2 Pfo 1 [facility] 05-14-2024 09:15-0400 Body temperature 97.81 [degF] Pfo 1 [facility] 05-14-2024 09:15-0400 Body weight 126.55 kg Pfo 1 [facility] 05-14-2024 09:15-0400 Diastolic blood pressure 59 mm[Hg] Pfo 1 [facility] 05-14-2024 09:15-0400 Heart rate 72 /min Pfo 1 [facility] 05-14-2024 09:15-0400 Respiratory rate 20 /min Pfo 1 [facility] 05-14-2024 09:15-0400 SaO2% (BldA) [Mass fraction] 95 % Pfo 1 [facility] 05-14-2024 09:15-0400 Systolic blood pressure 161 mm[Hg] Pfo 1 [facility] 05-07-2024 09:25-0400 Body height 165.1 cm Pfo 1 [facility] 05-07-2024 09:25-0400 Body mass index (BMI) [Ratio] 47.09 kg/m2 Pfo 1 [facility] 05-07-2024 09:25-0400 Body temperature 98.4 [degF] Pfo 1 [facility] 05-07-2024 09:25-0400 Body weight 128.37 kg Pfo 1 [facility] 05-07-2024 09:25-0400 Diastolic blood pressure 47 mm[Hg] Pfo 1 [facility] 05-07-2024 09:25-0400 Heart rate 69 /min Pfo 1 [facility] 05-07-2024 09:25-0400 Respiratory rate 20 /min Pfo 1 [facility] 05-07-2024 09:25-0400 SaO2% (BldA) [Mass fraction] 95 % Pfo 1 [facility] 05-07-2024 09:25-0400 Systolic blood pressure 169 mm[Hg] Pfo 1 [facility] 05-01-2024 13:52-0400 Body height 165.1 cm [facility] 05-01-2024 13:52-0400 Body mass index (BMI) [Ratio] 47.5 kg/m2 [facility] 05-01-2024 13:52-0400 Body temperature 96.7 [degF] [facility] 05-01-2024 13:52-0400 Body weight 129.38 kg [facility] 05-01-2024 13:52-0400 Diastolic blood pressure 60 mm[Hg] [facility] 05-01-2024 13:52-0400 Heart rate 76 /min [facility] 05-01-2024 13:52-0400 Respiratory rate 18 /min [facility] 05-01-2024 13:52-0400 SaO2% (BldA) [Mass fraction] 95 % [facility] 05-01-2024 13:52-0400 Systolic blood pressure 130 mm[Hg] [facility] 04-30-2024 09:19-0400 Body height 165.1 cm Pfo 1 [facility] 04-30-2024 09:19-0400 Body mass index (BMI) [Ratio] 47.26 kg/m2 Pfo 1 [facility] 04-30-2024 09:19-0400 Body temperature 97.81 [degF] Pfo 1 [facility] 04-30-2024 09:19-0400 Body weight 128.82 kg Pfo 1 [facility] 04-30-2024 09:19-0400 Diastolic blood pressure 68 mm[Hg] Pfo 1 [facility] 04-30-2024 09:19-0400 Heart rate 65 /min Pfo 1 [facility] 04-30-2024 09:19-0400 Respiratory rate 20 /min Pfo 1 [facility] 04-30-2024 09:19-0400 SaO2% (BldA) [Mass fraction] 93 % Pfo 1 [facility] 04-30-2024 09:19-0400 Systolic blood pressure 175 mm[Hg] Pfo 1 [facility] 04-23-2024 09:28-0400 Body height 165.1 cm Pfo 6 [facility] 04-23-2024 09:28-0400 Body mass index (BMI) [Ratio] 46.93 kg/m2 Pfo 6 [facility] 04-23-2024 09:280400 Body temperature 97.7 [degF] Pfo 6 [facility] 04-23-2024 09:280400 Body weight 127.91 kg Pfo 6 [facility] 04-23-2024 09:280400 Diastolic blood pressure 56 mm[Hg] Pfo 6 [facility] 04-23-2024 09:280400 Heart rate 69 /min Pfo 6 [facility] 04-23-2024 09:280400 Respiratory rate 24 /min Pfo 6 [facility] 04-23-2024 09:280400 SaO2% (BldA) [Mass fraction] 98 % Pfo 6 [facility] 04-23-2024 09:280400 Systolic blood pressure 177 mm[Hg] Pfo 6 [facility] 04-16-2024 09:190400 Body height 165.1 cm Pfo 6 [facility] 04-16-2024 09:19-0400 Body mass index (BMI) [Ratio] 46.76 kg/m2 Pfo 6 [facility] 04-16-2024 09:190400 Body temperature 97.39 [degF] Pfo 6 [facility] 04-16-2024 09:190400 Body weight 127.46 kg Pfo 6 [facility] 04-16-2024 09:190400 Diastolic blood pressure 65 mm[Hg] Pfo 6 [facility] 04-16-2024 09:190400 Heart rate 72 /min Pfo 6 [facility] 04-16-2024 09:190400 Respiratory rate 18 /min Pfo 6 [facility] 04-16-2024 09:190400 SaO2% (BldA) [Mass fraction] 96 % Pfo 6 [facility] 04-16-2024 09:19-0400 Systolic blood pressure 177 mm[Hg] Pfo 6 [facility] 04-09-2024 09:33-0400 Body height 165.1 cm Pfo 6 [facility] 04-09-2024 09:33-0400 Body mass index (BMI) [Ratio] 46.59 kg/m2 Pfo 6 [facility] 04-09-2024 09:33-0400 Body temperature 97.59 [degF] Pfo 6 [facility] 04-09-2024 09:33-0400 Body weight 127.01 kg Pfo 6 [facility] 04-09-2024 09:33-0400 Diastolic blood pressure 66 mm[Hg] Pfo 6 [facility] 04-09-2024 09:33-0400 Heart rate 66 /min Pfo 6 [facility] 04-09-2024 09:33-0400 Respiratory rate 20 /min Pfo 6 [facility] 04-09-2024 09:33-0400 SaO2% (BldA) [Mass fraction] 96 % Pfo 6 [facility] 04-09-2024 09:33-0400 Systolic blood pressure 169 mm[Hg] Pfo 6 [facility] 04-02-2024 09:24-0400 Body height 165.1 cm Pfo 4 [facility] 04-02-2024 09:24-0400 Body mass index (BMI) [Ratio] 46.43 kg/m2 Pfo 4 [facility] 04-02-2024 09:24-0400 Body temperature 97.7 [degF] Pfo 4 [facility] 04-02-2024 09:24-0400 Body weight 126.55 kg Pfo 4 [facility] 04-02-2024 09:24-0400 Diastolic blood pressure 58 mm[Hg] Pfo 4 [facility] 04-02-2024 09:24-0400 Heart rate 71 /min Pfo 4 [facility] 04-02-2024 09:24-0400 Respiratory rate 20 /min Pfo 4 [facility] 04-02-2024 09:24-0400 SaO2% (BldA) [Mass fraction] 96 % Pfo 4 [facility] 04-02-2024 09:24-0400 Systolic blood pressure 168 mm[Hg] Pfo 4 [facility] 03-26-2024 09:32-0400 Body height 165.1 cm Pfo 6 [facility] 03-26-2024 09:32-0400 Body mass index (BMI) [Ratio] 46.1 kg/m2 Pfo 6 [facility] 03-26-2024 09:32-0400 Body temperature 97.7 [degF] Pfo 6 [facility] 03-26-2024 09:32-0400 Body weight 125.65 kg Pfo 6 [facility] 03-26-2024 09:32-0400 Diastolic blood pressure 67 mm[Hg] Pfo 6 [facility] 03-26-2024 09:32-0400 Heart rate 67 /min Pfo 6 [facility] 03-26-2024 09:32-0400 Respiratory rate 20 /min Pfo 6 [facility] 03-26-2024 09:32-0400 SaO2% (BldA) [Mass fraction] 95 % Pfo 6 [facility] 03-26-2024 09:32-0400 Systolic blood pressure 152 mm[Hg] Pfo 6 [facility] 03-19-2024 09:37-0400 Body height 165.1 cm Pfo 4 [facility] 03-19-2024 09:37-0400 Body mass index (BMI) [Ratio] 45.93 kg/m2 Pfo 4 [facility] 03-19-2024 09:37-0400 Body temperature 97.9 [degF] Pfo 4 [facility] 03-19-2024 09:37-0400 Body weight 125.19 kg Pfo 4 [facility] 03-19-2024 09:37-0400 Diastolic blood pressure 67 mm[Hg] Pfo 4 [facility] 03-19-2024 09:37-0400 Heart rate 65 /min Pfo 4 [facility] 03-19-2024 09:37-0400 Respiratory rate 20 /min Pfo 4 [facility] 03-19-2024 09:37-0400 SaO2% (BldA) [Mass fraction] 93 % Pfo 4 [facility] 03-19-2024 09:37-0400 Systolic blood pressure 180 mm[Hg] Pfo 4 [facility] 03-12-2024 09:30-0400 Body height 165.1 cm Pfo 7 [facility] 03-12-2024 09:30-0400 Body mass index (BMI) [Ratio] 45.83 kg/m2 Pfo 7 [facility] 03-12-2024 09:30-0400 Body temperature 97.5 [degF] Pfo 7 [facility] 03-12-2024 09:30-0400 Body weight 124.92 kg Pfo 7 [facility] 03-12-2024 09:30-0400 Diastolic blood pressure 55 mm[Hg] Pfo 7 [facility] 03-12-2024 09:30-0400 Heart rate 60 /min Pfo 7 [facility] 03-12-2024 09:30-0400 Respiratory rate 20 /min Pf 7 [facility] 03-12-2024 09:30-0400 SaO2% (BldA) [Mass fraction] 95 % Pf 7 [facility] 03-12-2024 09:30-0400 Systolic blood pressure 181 mm[Hg] Pfo 7 [facility] 02-25-2024 14:54-0400 Body height 165.1 cm Fernie Furlong DO Work Phone: [facility] 02-25-2024 14:54-0400 Body mass index (BMI) [Ratio] 44.56 kg/m2 Fernie Furlong DO Work Phone: [facility] 02-25-2024 14:54-0400 Body temperature 98.29 [degF] Fernie Furlong DO Work Phone: [facility] 02-25-2024 14:54-0400 Body weight 121.47 kg Fernie Furlong DO Work Phone: [facility] 02-25-2024 14:54-0400 Diastolic blood pressure 70 mm[Hg] Fernie Furlong DO Work Phone: [facility] 02-25-2024 14:54-0400 Heart rate 60 /min Fernie Furlong DO Work Phone: [facility] [employer] [facility] 02-25-2024 14:54-0400 SaO2% (BldA) [Mass fraction] 95 % Fernie Clark DO Work Phone: [facility] [employer] [facility] 02-25-2024 14:54-0400 Systolic blood pressure 140 mm[Hg] Fernie Clark DO Work Phone: [facility] 02-13-2024 09:26-0400 Body height 165.1 cm Pfo 6 [facility] 02-13-2024 09:26-0400 Body mass index (BMI) [Ratio] 44.6 kg/m2 Pfo 6 [facility] 02-13-2024 09:26-0400 Body temperature 97.7 [degF] Pfo 6 [facility] 02-13-2024 09:26-0400 Body weight 121.56 kg Pfo 6 [facility] 02-13-2024 09:26-0400 Diastolic blood pressure 60 mm[Hg] Pfo 6 [facility] 02-13-2024 09:26-0400 Heart rate 60 /min Pfo 6 [facility] 02-13-2024 09:26-0400 Respiratory rate 18 /min Pfo 6 [facility] 02-13-2024 09:26-0400 SaO2% (BldA) [Mass fraction] 94 % Pfo 6 [facility] 02-13-2024 09:26-0400 Systolic blood pressure 162 mm[Hg] Pfo 6 [facility] 02-06-2024 09:30-0400 Body height 165.1 cm Pfo 6 [facility] 02-06-2024 09:30-0400 Body mass index (BMI) [Ratio] 44.6 kg/m2 Pfo 6 [facility] 02-06-2024 09:30-0400 Body temperature 97.9 [degF] Pfo 6 [facility] 02-06-2024 09:30-0400 Body weight 121.56 kg Pfo 6 [facility] 02-06-2024 09:30-0400 Diastolic blood pressure 75 mm[Hg] Pfo 6 [facility] 02-06-2024 09:30-0400 Heart rate 60 /min Pfo 6 [facility] 02-06-2024 09:30-0400 Respiratory rate 188 /min Pfo 6 [facility] 02-06-2024 09:30-0400 SaO2% (BldA) [Mass fraction] 98 % Pfo 6 [facility] 02-06-2024 09:30-0400 Systolic blood pressure 176 mm[Hg] Pfo 6 [facility] 01-30-2024 09:25-0400 Body height 165.1 cm Pfo 6 [facility] 01-30-2024 09:25-0400 Body mass index (BMI) [Ratio] 44.93 kg/m2 Pfo 6 [facility] 01-30-2024 09:25-0400 Body temperature 97.7 [degF] Pfo 6 [facility] 01-30-2024 09:25-0400 Body weight 122.47 kg Pfo 6 [facility] 01-30-2024 09:25-0400 Diastolic blood pressure 60 mm[Hg] Pfo 6 [facility] 01-30-2024 09:25-0400 Heart rate 56 /min Pfo 6 [facility] 01-30-2024 09:25-0400 Respiratory rate 18 /min Pfo 6 [facility] 01-30-2024 09:25-0400 SaO2% (BldA) [Mass fraction] 93 % Pfo 6 [facility] 01-30-2024 09:25-0400 Systolic blood pressure 168 mm[Hg] Pfo 6 [facility] 01-23-2024 09:33-0400 Body height 165.1 cm Pfo 6 [facility] 01-23-2024 09:33-0400 Body mass index (BMI) [Ratio] 45.93 kg/m2 Pfo 6 [facility] 01-23-2024 09:33-0400 Body temperature 97.39 [degF] Pfo 6 [facility] 01-23-2024 09:33-0400 Body weight 125.19 kg Pfo 6 [facility] 01-23-2024 09:33-0400 Diastolic blood pressure 73 mm[Hg] Pfo 6 [facility] 01-23-2024 09:33-0400 Heart rate 66 /min Pfo 6 [facility] 01-23-2024 09:33-0400 Respiratory rate 18 /min Pfo 6 [facility] 01-23-2024 09:33-0400 SaO2% (BldA) [Mass fraction] 98 % Pfo 6 [facility] 01-23-2024 09:33-0400 Systolic blood pressure 180 mm[Hg] Pfo 6 [facility] 01-16-2024 09:24-0500 Body height 165.1 cm Pfo 6 [facility] 01-16-2024 09:24-0500 Body mass index (BMI) [Ratio] 46.1 kg/m2 Pfo 6 [facility] 01-16-2024 09:24-0500 Body temperature 98.01 [degF] Pfo 6 [facility] 01-16-2024 09:24-0500 Body weight 125.65 kg Pfo 6 [facility] 01-16-2024 09:24-0500 Diastolic blood pressure 80 mm[Hg] Pfo 6 [facility] 01-16-2024 09:24-0500 Heart rate 71 /min Pfo 6 [facility] 01-16-2024 09:24-0500 Respiratory rate 18 /min Pfo 6 [facility] 01-16-2024 09:24-0500 SaO2% (BldA) [Mass fraction] 97 % Pfo 6 [facility] 01-16-2024 09:24-0500 Systolic blood pressure 180 mm[Hg] Pfo 6 [facility] 01-09-2024 09:36-0500 Body height 165.1 cm Pfo 3 [facility] 01-09-2024 09:36-0500 Body mass index (BMI) [Ratio] 46.1 kg/m2 Pfo 3 [facility] 01-09-2024 09:36-0500 Body temperature 97.9 [degF] Pfo 3 [facility] 01-09-2024 09:36-0500 Body weight 125.65 kg Pfo 3 [facility] 01-09-2024 09:36-0500 Diastolic blood pressure 75 mm[Hg] Pfo 3 [facility] 01-09-2024 09:36-0500 Heart rate 70 /min Pfo 3 [facility] 01-09-2024 09:36-0500 Respiratory rate 18 /min Pfo 3 [facility] 01-09-2024 09:36-0500 SaO2% (BldA) [Mass fraction] 97 % Pfo 3 [facility] 01-09-2024 09:36-0500 Systolic blood pressure 180 mm[Hg] Pfo 3 [facility] 01-02-2024 09:37-0500 Body temperature 98.01 [degF] Pfo 4 [facility] 01-02-2024 09:37-0500 Diastolic blood pressure 72 mm[Hg] Pfo 4 [facility] 01-02-2024 09:37-0500 Heart rate 62 /min Pfo 4 [facility] 01-02-2024 09:37-0500 Respiratory rate 18 /min Pfo 4 [facility] 01-02-2024 09:37-0500 SaO2% (BldA) [Mass fraction] 95 % Pfo 4 [facility] 01-02-2024 09:37-0500 Systolic blood pressure 184 mm[Hg] Pfo 4 [facility] 12-26-2023 09:37-0500 Body height 165.1 cm Pfo 4 [facility] 12-26-2023 09:37-0500 Body mass index (BMI) [Ratio] 46.1 kg/m2 Pfo 4 [facility] 12-26-2023 09:37-0500 Body temperature 97.7 [degF] Pfo 4 [facility] 12-26-2023 09:37-0500 Body weight 125.65 kg Pfo 4 [facility] 12-26-2023 09:37-0500 Diastolic blood pressure 64 mm[Hg] Pfo 4 [facility] 12-26-2023 09:37-0500 Heart rate 67 /min Pfo 4 [facility] 12-26-2023 09:37-0500 Respiratory rate 18 /min Pfo 4 [facility] 12-26-2023 09:37-0500 SaO2% (BldA) [Mass fraction] 96 % Pfo 4 [facility] 12-26-2023 09:37-0500 Systolic blood pressure 177 mm[Hg] Pfo 4 [facility] 12-19-2023 09:30-0500 Body height 165.1 cm Pfo 2 [facility] 12-19-2023 09:30-0500 Body mass index (BMI) [Ratio] 46.13 kg/m2 Pfo 2 [facility] 12-19-2023 09:30-0500 Body temperature 97.39 [degF] Pfo 2 [facility] 12-19-2023 09:30-0500 Body weight 125.74 kg Pfo 2 [facility] 12-19-2023 09:30-0500 Diastolic blood pressure 67 mm[Hg] Pfo 2 [facility] 12-19-2023 09:30-0500 Heart rate 67 /min Pfo 2 [facility] 12-19-2023 09:30-0500 Respiratory rate 18 /min Pfo 2 [facility] 12-19-2023 09:30-0500 SaO2% (BldA) [Mass fraction] 97 % Pfo 2 [facility] 12-19-2023 09:30-0500 Systolic blood pressure 196 mm[Hg] Pfo 2 [facility] 12-12-2023 09:25-0500 Body height 165.1 cm Pfo 2 [facility] 12-12-2023 09:25-0500 Body mass index (BMI) [Ratio] 45.43 kg/m2 Pfo 2 [facility] 12-12-2023 09:25-0500 Body temperature 97.5 [degF] Pfo 2 [facility] 12-12-2023 09:25-0500 Body weight 123.83 kg Pfo 2 [facility] 12-12-2023 09:25-0500 Diastolic blood pressure 71 mm[Hg] Pfo 2 [facility] 12-12-2023 09:25-0500 Heart rate 70 /min Pfo 2 [facility] 12-12-2023 09:25-0500 Respiratory rate 18 /min Pfo 2 [facility] 12-12-2023 09:25-0500 SaO2% (BldA) [Mass fraction] 98 % Pfo 2 [facility] 12-12-2023 09:25-0500 Systolic blood pressure 166 mm[Hg] Pfo 2 [facility] 12-05-2023 09:15-0500 Body height 165.1 cm Pfo 2 [facility] 12-05-2023 09:15-0500 Body mass index (BMI) [Ratio] 44.76 kg/m2 Pfo 2 [facility] 12-05-2023 09:15-0500 Body temperature 97.39 [degF] Pfo 2 [facility] 12-05-2023 09:15-0500 Body weight 122.02 kg Pfo 2 [facility] 12-05-2023 09:15-0500 Diastolic blood pressure 70 mm[Hg] Pfo 2 [facility] 12-05-2023 09:15-0500 Heart rate 71 /min Pfo 2 [facility] 12-05-2023 09:15-0500 Respiratory rate 18 /min Pfo 2 [facility] 12-05-2023 09:15-0500 SaO2% (BldA) [Mass fraction] 96 % Pfo 2 [facility] 12-05-2023 09:15-0500 Systolic blood pressure 157 mm[Hg] Pfo 2 [facility] 11-28-2023 09:17-0500 Body height 165.1 cm Pfo 1 [facility] 11-28-2023 09:17-0500 Body mass index (BMI) [Ratio] 44.93 kg/m2 Pfo 1 [facility] 11-28-2023 09:17-0500 Body temperature 97.2 [degF] Pfo 1 [facility] 11-28-2023 09:17-0500 Body weight 122.47 kg Pfo 1 [facility] 11-28-2023 09:17-0500 Diastolic blood pressure 56 mm[Hg] Pfo 1 [facility] 11-28-2023 09:17-0500 Heart rate 79 /min Pfo 1 [facility] 11-28-2023 09:17-0500 Respiratory rate 18 /min Pfo 1 [facility] 11-28-2023 09:17-0500 SaO2% (BldA) [Mass fraction] 99 % Pfo 1 [facility] 11-28-2023 09:17-0500 Systolic blood pressure 156 mm[Hg] Pfo 1 [facility] 11-26-2023 13:40-0500 Body height 165.1 cm Fernie Furlong DO Work Phone: [facility] 11-26-2023 13:40-0500 Body mass index (BMI) [Ratio] 44.45 kg/m2 Fernie Furlong DO Work Phone: [facility] 11-26-2023 13:40-0500 Body temperature 97.3 [degF] Fernie Furlong DO Work Phone: [facility] 11-26-2023 13:40-0500 Body weight 121.16 kg Fernie Furlong DO Work Phone: [facility] 11-26-2023 13:40-0500 Diastolic blood pressure 62 mm[Hg] Fernie Furlong DO Work Phone: [facility] 11-26-2023 13:40-0500 Heart rate 62 /min Fernie Furlong DO Work Phone: [facility] 11-26-2023 13:40-0500 SaO2% (BldA) [Mass fraction] 96 % Fernie Furlong DO Work Phone: [facility] 11-26-2023 13:40-0500 Systolic blood pressure 130 mm[Hg] Fernie Furlong DO Work Phone: [facility] 11-21-2023 10:01-0500 Body height 165.1 cm Pfo 1 [facility] 11-21-2023 10:01-0500 Body mass index (BMI) [Ratio] 44.6 kg/m2 Pfo 1 [facility] [employer] [facility] 11-21-2023 10:01-0500 Body temperature 97.81 [degF] Pfo 1 [facility] [employer] [facility] 11-21-2023 10:01-0500 Body weight 121.56 kg Pfo 1 [facility] 11-21-2023 10:01-0500 Diastolic blood pressure 52 mm[Hg] Pfo 1 [facility] 11-21-2023 10:01-0500 Heart rate 62 /min Pfo 1 [facility] [employer] [facility] 11-21-2023 10:01-0500 Respiratory rate 18 /min Pfo 1 [facility] 11-21-2023 10:01-0500 SaO2% (BldA) [Mass fraction] 94 % Pfo 1 [facility] 11-21-2023 10:01-0500 Systolic blood pressure 122 mm[Hg] Pfo 1 [facility] 11-16-2023 09:00-0500 Body temperature 96.6 [degF] DO Fernie Furlong Work Phone: [facility] 11-16-2023 09:00-0500 Diastolic blood pressure 74 mm[Hg] DO Fernie Furlong Work Phone: [facility] 11-16-2023 09:00-0500 Heart rate 71 /min DO Fernie Furlong Work Phone: [facility] 11-16-2023 09:00-0500 Respiratory rate 18 /min DO Fernie Furlong Work Phone: [facility] 11-16-2023 09:00-0500 SaO2% (BldA) [Mass fraction] 97 % DO Fernie Furlong Work Phone: [facility] 11-16-2023 09:00-0500 Systolic blood pressure 148 mm[Hg] DO Fernie Furlong Work Phone: [facility] 08-23-2023 12:20-0400 Body height 165.1 cm [facility]ia [facility] Other [employer] Other 08-23-2023 12:20-0400 Body mass index (BMI) [Ratio] 44.09 kg/m2 [facility] [employer] Other 08-23-2023 12:20-0400 Body temperature 96.6 [degF] [facility] [employer] Other 08-23-2023 12:20-0400 Body weight 120.2 kg Gia Tammy Other [employer] Other 08-23-2023 12:20-0400 Diastolic blood pressure 86 mm[Hg] [facility]ia Tam[facility] Other [employer] Other 08-23-2023 12:20-0400 Respiratory rate 18 /min Gia Tam[facility] Other [employer] Other 08-23-2023 12:20-0400 SaO2% (BldA) [Mass fraction] 96 % [facility]ia Tam[facility] Other [employer] Other 08-23-2023 12:20-0400 Systolic blood pressure 138 mm[Hg] [facility] [employer] Other 01-25-2023 12:20-0400 Body height 165.1 cm [facility] [employer] Other 01-25-2023 12:20-0400 Body mass index (BMI) [Ratio] 45.76 kg/m2 [facility] [employer] Other 01-25-2023 12:20-0400 Body temperature 96.7 [degF] [facility] [employer] Other 01-25-2023 12:20-0400 Body weight 124.74 kg [facility]ia Tam[facility] Other [employer] Other 01-25-2023 12:20-0400 Diastolic blood pressure 80 mm[Hg] [facility] Other [employer] Other 01-25-2023 12:20-0400 Respiratory rate 18 /min [facility] Other [employer] Other 01-25-2023 12:20-0400 SaO2% (BldA) [Mass fraction] 96 % [facility] [employer] Other 01-25-2023 12:20-0400 Systolic blood pressure 139 mm[Hg] [facility] [employer] Other 07-20-2022 13:00-0400 Body height 165.1 cm [facility] [employer] Other 07-20-2022 13:00-0400 Body temperature 96 [degF] [facility] [employer] Other 07-20-2022 13:00-0400 Diastolic blood pressure 71 mm[Hg] [facility] Other [employer] Other 07-20-2022 13:00-0400 Respiratory rate 18 /min [facility] [employer] Other 07-20-2022 13:00-0400 SaO2% (BldA) [Mass fraction] 96 % [facility] Other [employer] Other 07-20-2022 13:00-0400 Systolic blood pressure 134 mm[Hg] [facility] Other [employer] Other 04-06-2022 12:00-0400 Body height 165.1 cm [facility] [employer] Other 04-06-2022 12:00-0400 Body mass index (BMI) [Ratio] 46.32 kg/m2 [facility] [employer] Other 04-06-2022 12:00-0400 Body temperature 98 [degF] [facility] [employer] Other 04-06-2022 12:00-0400 Body weight 126.28 kg [facility] Other [facility] Other 04-06-2022 12:00-0400 Diastolic blood pressure 70 mm[Hg] [facility] Other [facility] Other 04-06-2022 12:00-0400 Respiratory rate 20 /min [facility] Other [facility] Other 04-06-2022 12:00-0400 SaO2% (BldA) [Mass fraction] 93 % [facility] Other 04-06-2022 12:00-0400 Systolic blood pressure 122 mm[Hg] [facility] Other [facility] Other 12-27-2021 16:20-0500 Body height 165.1 cm [facility] Other 12-27-2021 16:20-0500 Body mass index (BMI) [Ratio] 46.29 kg/m2 [facility] [employer] Other 12-27-2021 16:20-0500 Body temperature 96.2 [degF] [facility] [employer] Other 12-27-2021 16:20-0500 Body weight 126.19 kg [facility] Other 12-27-2021 16:20-0500 Diastolic blood pressure 78 mm[Hg] [facility] Other [facility] Other 12-27-2021 16:20-0500 Respiratory rate 20 /min [facility] Other [facility] Other 12-27-2021 16:20-0500 SaO2% (BldA) [Mass fraction] 95 % [facility] Other 12-27-2021 16:20-0500 Systolic blood pressure 161 mm[Hg] [facility] Other Encounters Encounter Date Encounter Type Care Provider Facility Start: 01-04-2025 ambulatory FERNIE CLARK [facility] Start: 01-03-2025 End: 01-03-2025 ambulatory Fernie Clark DO Work Phone: [facility] Work Phone: Start: 01-03-2025 End: 01-03-2025 Departed Referred Fernie Clark DO Work Phone: [facility] Start: 01-03-2025 End: 01-03-2025 Telephone encounter Magdalena Alanis [facility] Comment on above: status of patient patient update Start: 12-31-2024 End: 12-31-2024 Orders Only Fernie Clark DO Work Phone: [facility] Comment on above: Lumbar stenosis with neurogenic claudication Start: 12-29-2024 End: 12-29-2024 Refill Livia Du CMA [facility] Comment on above: Lumbar stenosis with neurogenic claudication Start: 12-26-2024 End: 12-27-2024 ambulatory Fernie Clark DO Work Phone: [facility] Comment on above: Acute cystitis with hematuria (Primary Dx); Essential hypertension; Acute right-sided low back pain without sciatica; Nausea; Anxiety Start: 12-19-2024 End: 12-27-2024 Refill Fernie Clark DO Work Phone: [facility] Comment on above: Lumbar stenosis with neurogenic claudication Constipation, unspec ified constipation type (Primary Dx); Essential hypertension; Dysuria; History of UTI; History of sepsis; Chronic low back pain without sciatica, unspecified back pain laterality Start: 12-18-2024 End: 12-18-2024 Telephone encounter Bonny Bowles [facility] Comment on above: EMG order Start: 12-10-2024 End: 12-10-2024 Orders Only Fernie Mascorrong DO Work Phone: [facility] Start: 12-07-2024 End: 12-09-2024 Non-patient / Non-visit Fernie Furlong DO Work Phone: [facility] Work Phone: Start: 12-02-2024 Non-patient / Non-visit Fernierajinder Molinalong DO Work Phone: [facility] Work Phone: Start: 12-02-2024 End: 12-02-2024 Orders Only Fernie Mascorrong DO Work Phone: [facility] Comment on above: Lumbar stenosis with neurogenic claudication (Primary Dx) Start: 12-01-2024 End: 12-01-2024 Telephone encounter Jennifer Vale [facility] Comment on above: orders for patient t o be sent out to hospital for evaluation Start: 11-24-2024 End: 11-28-2024 Non-patient / Non-visit Fernie Tracylong DO Work Phone: [facility] Work Phone: Start: 11-24-2024 End: 11-24-2024 Telephone encounter Fernie Mascorrong DO Work Phone: [facility] Start: 11-20-2024 Non-patient / Non-visit Fernierajinder Molinalong DO Work Phone: [facility] Work Phone: Start: 11-20-2024 End: 11-20-2024 ambulatory Fernie Furlong DO Work Phone: [facility] Work Phone: Start: 11-20-2024 End: 11-20-2024 Departed Referred Fernie Furlong DO Work Phone: [facility] Start: 11-18-2024 End: 11-18-2024 Orders Only [facility] Comment on above: Hypomagnesemia (Prim fara Dx) Start: 11-17-2024 End: 11-19-2024 Telephone encounter [facility] Clark [facility] Start: 11-17-2024 End: 11-17-2024 ambulatory FERNIE Ricketts [facility] Start: 11-10-2024 End: 11-10-2024 ambulatory [facility] Start: 11-04-2024 End: 11-04-2024 ambulatory [facility] Infusion Bed 1 [facility] Comment on above: Hypomagnesemia (Prim fara Dx) Start: 11-03-2024 End: 11-03-2024 Refill Fernie Clark DO Work Phone: [facility] Start: 11-03-2024 End: 11-03-2024 Orders Only Fernie Clark DO Work Phone: [facility] Start: 11-03-2024 End: 11-03-2024 ambulatory Christian Curtis MD Facility:[facility] Start: 10-27-2024 End: 10-27-2024 ambulatory [facility] Start: 10-20-2024 End: 10-20-2024 Documentation procedure Clara prince [facility] Start: 10-20-2024 End: 10-20-2024 ambulatory [facility] Start: 10-13-2024 End: 10-13-2024 ambulatory [facility] Start: 10-07-2024 End: 10-14-2024 Refill Fernie Clark DO Work Phone: [facility] Start: 10-07-2024 End: 10-07-2024 ambulatory FERNIE G [facility] Comment on above: Hypomagnesemia (Prim fara Dx) Start: 10-06-2024 End: 10-06-2024 [facility] Start: 10-01-2024 End: 10-01-20[facility] above: Hypomagnesemia (Prim fara Dx) Start: 09-29-2024 End: 09-29-2024 [facility] Start: 09-27-2024 End: 09-27-2024 Orders Only Fernie Clark DO Work Phone: [facility] Start: 09-26-2024 End: 09-26-2024 Evaluation and management of inpatient [facility] Start: 09-22-2024 End: 09-22-2024 [facility] Start: 09-15-2024 End: 09-15-2024 [facility] Start: 09-11-2024 End: 09-11-2024 Refill Fernie Clark DO Work Phone: [facility] Start: 09-10-2024 End: 09-10-2024 Telephone encounter Nina Mcgee [facility] Comment on above: EMG NEW PATIENT Start: 09-10-2024 End: 09-10-2024 [facility] Comment on above: Hypomagnesemia (Prim fara Dx) Start: 09-08-2024 End: 09-08-2024 [facility] Start: 09-04-2024 End: 09-04-2024 Orders Only Fernie Clark DO Work Phone: [facility] Comment on above: Paresthesia of right lower extremity (Primary Dx); Ross's esophagus with dysplasia Start: 09-01-2024 End: 09-01-2024 Documentation procedure Americo Lira [facility] - Medical Oncology Start: 09-01-2024 End: 09-01-2024 [facility] Start: 08-27-2024 End: 08-27-2024 [facility] Comment on above: Hypomagnesemia (Prim fara Dx) Start: 08-25-2024 End: 08-25-2024 [facility] Start: 08-22-2024 End: 08-25-2024 Refill Fernie Clark DO Work Phone: [facility] Comment on above: 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 ([facility]) (Primary Dx); Morbid obesity ([facility]) Start: 08-20-2024 End: 08-20-2024 [facility] Comment on above: Hypomagnesemia (Prim fara Dx) Start: 08-18-2024 End: 08-18-2024 [facility] Start: 08-13-2024 End: 08-13-2024 [facility] Comment on above: Hypomagnesemia (Prim fara Dx) Start: 08-11-2024 End: 08-11-2024 [facility] Start: 08-06-2024 End: 08-06-2024 [facility] Comment on above: Hypomagnesemia (Prim fara Dx) Start: 08-05-2024 End: 08-05-2024 Orders Only Fernie Clark DO Work Phone: [facility] Start: 08-04-2024 End: 08-04-2024 [facility] Start: 07-30-2024 End: 07-30-2024 [facility] Comment on above: Hypomagnesemia (Prim fara Dx) Start: 07-28-2024 End: 07-28-2024 [facility] Start: 07-28-2024 End: 07-28-2024 ambulatory Christian Curtis MD Facility: [facility] Start: 07-23-2024 End: 07-23-2024 ambulatory [facility] Comment on above: Hypomagnesemia (Prim fara Dx) Start: 07-21-2024 End: 07-21-2024 [facility] Start: 07-17-2024 End: 07-17-2024 Refill Fernie Clark DO Work Phone: [facility] - Family [facility] Start: 07-16-2024 End: 07-16-2024 [facility] Comment on above: Hypomagnesemia (Prim fara Dx) Start: 07-15-2024 End: 07-15-2024 [facility] Start: 07-09-2024 End: 07-09-2024 [facility] Comment on above: Hypomagnesemia (Prim fara Dx) Start: 07-07-2024 End: 07-07-2024 [facility] Start: 07-02-2024 End: 07-02-2024 [facility] Comment on above: Hypomagnesemia (Prim fara Dx) Start: 06-30-2024 End: 06-30-2024 [facility] Start: 06-27-2024 End: 06-27-2024 Refill Fernie Mascorrong DO Work Phone: [facility] - Family [facility] Start: 06-25-2024 End: 06-25-2024 [facility] Comment on above: Hypomagnesemia (Prim fara Dx) Start: 06-23-2024 End: 06-23-2024 [facility] Start: 06-18-2024 End: 06-18-2024 [facility] Comment on above: Hypomagnesemia (Prim fara Dx) Start: 06-16-2024 End: 06-16-2024 [facility] Start: 06-11-2024 End: 06-11-2024 [facility] Comment on above: Hypomagnesemia (Prim fara Dx) Start: 06-09-2024 End: 06-09-2024 [facility] Start: 06-04-2024 End: 06-04-2024 ambulatory [facility] Start: 06-02-2024 End: 06-02-2024 [facility] Start: 05-30-2024 End: 05-30-2024 [facility] Start: 05-29-2024 End: 05-29-2024 [facility]: [facility] Start: 05-28-2024 End: 05-28-2024 [facility] Comment on above: Hypomagnesemia (Prim fara Dx) Start: 05-27-2024 End: 05-27-2024 [facility] Start: 05-27-2024 End: 05-27-2024 Office outpatient visit 25 minutes Fernie Mascorro DO Work Phone: [facility] Comment on above: 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 ([facility]) (Primary Dx); Dysuria; Acute rhinitis; Morbid obesity ([facility]); Incontinence of feces with fecal urgency Start: 05-27-2024 End: 05-27-2024 [facility] Start: 05-26-2024 End: 05-26-2024 [facility] Start: 05-21-2024 End: 05-21-2024 [facility] Comment on above: Hypomagnesemia (Prim fara Dx) Start: 05-19-2024 End: 05-19-2024 [facility] Start: 05-14-2024 End: 05-14-2024 [facility] Comment on above: Hypomagnesemia (Prim fara Dx) Start: 05-12-2024 End: 05-12-2024 [facility] Start: 05-07-2024 End: 05-07-2024 [facility] Comment on above: Hypomagnesemia (Prim fara Dx) Start: 05-05-2024 End: 05-05-2024 [facility] Start: 05-01-2024 End: 05-01-2024 ambulatory [facility] Work Phone: Start: 05-01-2024 End: 05-01-2024 Patient encounter procedure [facility] Nephrology Tod Work Phone: Start: 04-30-2024 End: 04-30-2024 [facility] Comment on above: Hypomagnesemia (Prim fara Dx) Start: 04-29-2024 End: 04-29-2024 Refill Fernie Clark Work Phone: [facility] - [facility] Start: 04-29-2024 End: 04-29-2024 Refill Elba Bae CMA [facility] Family [facility] Start: 04-28-2024 Non-patient / Non-visit [facility] Nephrology Work Phone: Start: 04-28-2024 End: 04-28-2024 [facility] Start: 04-23-2024 End: 04-23-2024 [facility] Comment on above: Hypomagnesemia (Prim fara Dx) Start: 04-21-2024 End: 04-21-2024 [facility] FERNIE Ricketts [facility] Start: 04-16-2024 End: 04-16-2024 [facility][1]RAJINDER Ricketts [facility] Comment on above: Hypomagnesemia (Prim fara Dx) Start: 04-14-2024 End: 04-14-2024 [facility] Start: 04-09-2024 End: 04-09-2024 Refill Fernie Mascorrong DO Work Phone: [facility] - [facility] Start: 04-09-2024 End: 04-09-2024 [facility][1]RAJINDER Ricketts [facility] Comment on above: Hypomagnesemia (Prim fara Dx) Start: 04-08-2024 End: 04-08-2024 [facility] Start: 04-02-2024 End: 04-02-2024 [facility] Jamarcus [facility] Comment on above: Hypomagnesemia (Prim fara Dx) Start: 03-31-2024 End: 03-31-2024 Refill Fernie Molinalong DO Work Phone: [facility] Start: 03-31-2024 End: 03-31-2024 [facility] Start: 03-26-2024 End: 03-26-2024 [facility] FERNIE Ricketts [facility] Comment on above: Hypomagnesemia (Prim fara Dx) Start: 03-24-2024 End: 03-24-2024 [facility] Start: 03-19-2024 End: 03-19-2024 [facility][1]RAJINDER Ricketts [facility] Comment on above: Hypomagnesemia (Prim fara Dx) Start: 03-17-2024 End: 03-17-2024 Refill Fernie Ricketts Furlong DO Work Phone: [facility] Start: 03-17-2024 End: 03-17-2024 [facility] Start: 03-12-2024 End: 03-12-2024 [facility] Comment on above: Hypomagnesemia (Prim fara Dx) Start: 03-10-2024 End: 03-10-2024 [facility] Start: 03-03-2024 End: 03-03-2024 [facility] Start: 02-25-2024 End: 02-25-2024 Office outpatient visit 15 minutes Fernie Mascorro DO Work Phone: [facility] - Family Medicine Comment on above: Urinary incontinence , unspecified type (Primary Dx); Abnormality of gait and mobility Start: 02-25-2024 End: 02-25-2024 [facility] Start: 02-25-2024 End: 02-25-2024 Documentation procedure Millie Ireland [facility] - Medical Oncology Start: 02-25-2024 End: 02-25-2024 [facility] Start: 02-20-2024 End: 02-20-2024 Documentation procedure Americo Lira [facility] Medical Oncology Start: 02-19-2024 End: 02-19-2024 Documentation procedure Americo Lira [facility] Medical Oncology Start: 02-18-2024 End: 02-18-2024 [facility] Start: 02-13-2024 End: 02-13-2024 [facility] Comment on above: Hypomagnesemia (Prim fara Dx) Start: 02-11-2024 End: 02-11-2024 [facility] Start: 02-06-2024 End: 02-06-2024 [facility] Comment on above: Hypomagnesemia (Prim fara Dx) Start: 02-04-2024 End: 02-04-2024 [facility] Start: 02-04-2024 End: 02-04-2024 ambulatory Christian Curtis MD Facility:[facility] Start: 01-30-2024 End: 01-30-2024 [facility] Comment on above: Hypomagnesemia (Prim fara Dx) Start: 01-28-2024 End: 01-28-2024 [facility] Start: 01-23-2024 End: 01-23-2024 [facility] Comment on above: Hypomagnesemia (Prim fara Dx) Start: 01-21-2024 End: 01-21-2024 [facility] Start: 01-21-2024 End: 01-21-2024 ambulatory Christian Curtis MD Facility:[facility] Start: 01-17-2024 Orders Only Fernie noguera DO Work Phone: [facility] Comment on above: Hypertension in sta e 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 ([facility]) (Primary Dx) Start: 01-16-2024 End: 01-16-2024 [facility] Comment on above: Hypomagnesemia (Prim fara Dx) Start: 01-14-2024 End: 01-14-2024 [facility] Start: 01-09-2024 End: 01-09-2024 [facility] Comment on above: Hypomagnesemia (Prim fara Dx) Start: 01-08-2024 End: 01-08-2024 Patient encounter procedure Fernie Clark DO Work Phone: [facility] Comment on above: Medicare annual well ness visit, subsequent (Primary Dx); Screening for depression Start: 01-08-2024 End: 01-08-2024 [facility] Ambulatory [facility] Start: 01-07-2024 End: 01-07-2024 ambulatory [facility] Start: 01-02-2024 End: 01-11-2024 [facility] Comment on above: Hypomagnesemia (Prim fara Dx) Start: 12-31-2023 End: 12-31-2023 [facility] Start: 12-26-2023 End: 12-26-2023 [facility] Comment on above: Hypomagnesemia (Prim fara Dx) Start: 12-24-2023 End: 12-24-2023 [facility] Start: 12-19-2023 End: 12-19-2023 [facility] Comment on above: Hypomagnesemia (Prim fara Dx) Start: 12-17-2023 End: 12-17-2023 [facility] Start: 12-12-2023 End: 12-12-2023 ambulatory [facility] Comment on above: Hypomagnesemia (Prim fara Dx) Start: 12-11-2023 Refill Theresa Dhaval JE[facility] Start: 12-10-2023 End: 12-10-2023 [facility] Start: 12-07-2023 Orders Only Fernie Jamarcus Molinalo ng DO [facility] Phone[facility] Start: 12-05-2023 Telephone encounter [facility] Start: 12-05-2023 End: 12-05-2023 ambulatory [facility] Comment on above: Hypomagnesemia (Prim fara Dx) Start: 12-04-2023 Refill Fernie Jamarcus Molinalo ng DO [facility] Phone: [facility] Start: 12-03-2023 End: 12-03-2023 ambulatory [facility] Start: 11-28-2023 End: 11-28-2023 ambulatory FERNIE [facility] Comment on above: Hypomagnesemia (Prim fara Dx) Start: 11-26-2023 End: 11-26-2023 ambulatory FERNIE CLARK [facility] Start: 11-26-2023 End: 11-26-2023 Office outpatient visit 25 minutes Fernie Clark DO Work Phone: [facility] Comment on above: Hypertension 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 ([facility]) (Primary Dx); Mixed hyperlipidemia; Hypomagnesemia; 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; Morbid obesity ([facility]); Chronic obstructive pulmonary disease, unspecified [facility] type [facility] Start: 11-26-2023 End: 11-26-2023 [facility] Start: 11-21-2023 End: 11-21-2023 ambulatory [facility] 1 Elida Ireland [facility] - [facility] Oncology Comment on above: Hypomagnesemia (Prim fara Dx) Mixed hyperlipidemia (Primary Dx); Type 2 diabetes mellitus with stage 3b chronic kidney disease, with long-term current use of insulin ([facility]); Essential hypertension Start: 11-20-2023 Chart abstracting Felicity Ireland [facility] On[facility] Start: 11-19-2023 End: 11-19-2023 ambulatory [facility] Comment on above: Hypomagnesemia (Prim fara Dx) Start: 11-16-2023 End: 11-16-2023 ambulatory DO Fernie Furlong Work Phone: [facility] Work Phone: Start: 11-16-2023 End: 11-16-2023 Discharged Recurring DO Fernie Furlong Work Phone: [facility] - O/P Work Phone: Start: 11-12-2023 Refill Fernie noguera DO Work Phone: [facility] Start: 08-23-2023 End: 08-23-2023 ambulatory Gia Tammy Other [facility] Other Start: 08-23-2023 Office outpatient vi sit 25 minutes Gia Tammy [facility] Start: 04-26-[address] FERNIE CLARK Fac ility:[facility] Start: 01-25-2023 End: 01-26-[address] LUISA STERN . [facility] Other Start: 01-25-2023 Office outpatient vi sit 25 minutes Gia Tammy [facility] Start: 01-15-2023 End: 01-16-2023 ambulatory GIA TAMMY Facility:[facility] Start: 12-06-2022 End: 12-06-2022 ambulatory [facility] Start: 11-09-2022 End: 11-10-[address] FERNIE CLARK Facility:[facility] Start: 10-26-2022 End: 10-27-[address] LUISA STERN . Facility:[facility] Start: 08-02-2022 End: 08-03-[address] LUISA STERN . Facility:[facility] Start: 07-20-2022 End: 07-20-2022 ambulatory Gia Tammy Other [facility] Other Start: 07-20-2022 Office outpatient vi sit 25 minutes Gia Tammy [facility] Start: 07-12-2022 End: 07-13-2022 ambulatory GIA TAMMY Facility:[facility] Start: 05-03-2022 End: 05-03-2022 ambulatory Gia Tammy Other [facility] Other Start: 05-03-2022 Telephone encounter Gia Tammy [facility] Start: 04-25-2022 End: 04-26-[address] LUISA STERN . Facility:[facility] Start: 04-06-2022 End: 04-06-2022 ambulatory Gia Tammy Other [facility] Other Start: 04-06-2022 Office outpatient vi sit 25 minutes Gia Tammy [facility] Start: 03-30-2022 End: 03-31-2022 ambulatory GIA TAMMY Facility:[facility] Start: 03-30-2022 End: 03-31-[address] LUISA STERN . Facility:[facility] Start: 12-27-2021 End: 12-27-2021 ambulatory Gia Tammy Other [facility] Other Start: 12-27-2021 Office outpatient vi sit 15 minutes Gia Tammy [facility] Start: 11-28-2021 End: 11-28-2021 ambulatory Gia Tammy Other [facility] Other Start: 11-28-2021 Telephone encounter Gia Tammy [facility] Start: 11-24-2021 End: 11-24-2021 ambulatory Gia Tammy Other [facility] Other Start: 11-24-2021 Telephone encounter Gia Tammy [facility] Start: 03-30-2021 End: 03-31-2021 ambulatory [facility] Dino [facility]ENDING S[facility] TO [facility] Facility:[facility] Procedures Date Procedure Procedure Detail Performing Clinician Start: 11-20-2024 Urine culture Fernie mckay DO Work Phone: Start: 05-27-2024 Urnls dip stick/tabl et rgnt [...] Td Vaccines (2 - Td or Tdap) [facility] Start: 11-04-2025 Fall Risk Screening Fall Risk Screening [facility] Start: 10-07-2025 Fall Risk Screening Fall Risk Screening [facility] Start: 09-26-2025 Tobacco Screening Tobacco Screening [facility] Start: 08-27-2025 Adult BMI Screening Adult BMI Screening [facility] Start: 08-27-2025 Fall Risk Screening Fall Risk Screening [facility] Start: 08-20-2025 Adult BMI Screening Adult BMI Screening [facility] Start: 08-13-2025 Adult BMI Screening Adult BMI Screening [facility] Start: 08-06-2025 Tobacco Screening Tobacco Screening [facility] Start: 07-30-2025 Adult BMI Screening Adult BMI Screening [facility] Start: 07-30-2025 Tobacco Screening Tobacco Screening [facility] Start: 07-23-2025 Adult BMI Screening Adult BMI Screening [facility] Start: 07-16-2025 Adult BMI Screening Adult BMI Screening [facility] Start: 07-16-2025 Tobacco Screening Tobacco Screening [facility] Start: 07-09-2025 Adult BMI Screening Adult BMI Screening [facility] Start: 07-02-2025 Adult BMI Screening Adult BMI Screening [facility] Start: 06-25-2025 Adult BMI Screening Adult BMI Screening [facility] Start: 06-25-2025 Tobacco Screening Tobacco Screening [facility] Start: 06-18-2025 Adult BMI Screening Adult BMI Screening [facility] Start: 06-18-2025 Tobacco Screening Tobacco Screening [facility] Start: 06-11-2025 Adult BMI Screening Adult BMI Screening [facility] Start: 06-11-2025 Tobacco Screening Tobacco Screening [facility] Start: 06-04-2025 Adult BMI Screening Adult BMI Screening [facility] Start: 06-04-2025 Tobacco Screening Tobacco Screening [facility] Start: 05-28-2025 Adult BMI Screening Adult BMI Screening [facility] Start: 05-28-2025 Tobacco Screening Tobacco Screening [facility] Start: 05-27-2025 Adult BMI Screening Adult BMI Screening [facility] Start: 05-27-2025 Depression Screening Depression Screening [facility] Start: 05-27-2025 Tobacco Screening Tobacco Screening [facility] Start: 05-14-2025 Adult BMI Screening Adult BMI Screening [facility] Start: 05-14-2025 Tobacco Screening Tobacco Screening [facility] Start: 05-07-2025 Adult BMI Screening Adult BMI Screening [facility] Start: 05-07-2025 Fall Risk Screening Fall Risk Screening [facility] Start: 05-07-2025 Tobacco Screening Tobacco Screening [facility] Start: 04-30-2025 Adult BMI Screening Adult BMI Screening [facility] Start: 04-30-2025 Tobacco Screening Tobacco Screening [facility] Start: 04-23-2025 Adult BMI Screening Adult BMI Screening [facility] Start: 04-23-2025 Tobacco Screening Tobacco Screening [facility] Start: 04-09-2025 Adult BMI Screening Adult BMI Screening [facility] Start: 04-09-2025 Tobacco Screening Tobacco Screening [facility] Start: 04-02-2025 Adult BMI Screening Adult BMI Screening [facility] Start: 04-02-2025 Tobacco Screening Tobacco Screening [facility] Start: 03-26-2025 Adult BMI Screening Adult BMI Screening [facility] Start: 03-26-2025 Tobacco Screening Tobacco Screening [facility] Start: 03-19-2025 Adult BMI Screening Adult BMI Screening [facility] Start: 03-19-2025 Tobacco Screening Tobacco Screening [facility] Start: 03-12-2025 Adult BMI Screening Adult BMI Screening [facility] Start: 02-24-2025 Depression Screening Depression Screening [facility] Start: 02-24-2025 Fall Risk Screening Fall Risk Screening [facility] Start: 02-24-2025 Tobacco Screening Tobacco Screening [facility] Start: 02-12-2025 Adult BMI Screening Adult BMI Screening [facility] Start: 02-12-2025 Tobacco Screening Tobacco Screening [facility] Start: 02-05-2025 Adult BMI Screening Adult BMI Screening [facility] Start: 02-05-2025 Tobacco Screening Tobacco Screening [facility] Start: 01-29-2025 Adult BMI Screening Adult BMI Screening [facility] Start: 01-29-2025 Tobacco Screening Tobacco Screening [facility] Start: 01-22-2025 Adult BMI Screening Adult BMI Screening [facility] Start: 01-22-2025 Tobacco Screening Tobacco Screening [facility] Start: 01-15-2025 Adult BMI Screening Adult BMI Screening [facility] Start: 01-13-2025 End: 01-13-2025 Patient encounter procedure 01/13/2025 12:40 PM EST Of fice Visit [facility] [address] [place] [address] [facility] Start: 01-09-2025 Adult BMI Screening Adult BMI Screening [facility] Start: 01-09-2025 Tobacco Screening Tobacco Screening [facility] Start: 01-08-2025 Depression Screening Depression Screening [facility] Start: 01-08-2025 Fall Risk Screening Fall Risk Screening [facility] Start: 01-08-2025 Medicare Annual Wellness Visit Medicare Annual Wellness Visi t [facility] Start: 01-03-2025 Urine culture [facility] Start: 01-03-2025 Bacteria identified in Urine by Culture Urine Culture [facility] Start: 01-02-2025 Tobacco Screening Tobacco Screening [facility] Start: 12-26-2024 Adult BMI Screening Adult BMI Screening [facility] Start: 12-26-2024 Tobacco Screening Tobacco Screening [facility] Start: 12-19-2024 Adult BMI Screening Adult BMI Screening [facility] Start: 12-19-2024 Tobacco Screening Tobacco Screening [facility] Start: 12-15-2024 End: 12-15-2024 Patient encounter procedure 12/15/2024 12:30 PM EST [facility] [address] [place] [address] Ton Urbano MD [address] [place] [address] [facility] Start: 12-12-2024 Adult BMI Screening Adult BMI Screening [facility] Start: 12-10-2024 End: 12-10-2024 ambulatory 12/10/2024 9:30 AM EST Infusion Elida Ireland [facility] - [facility] On[facility] [address] [place] [phone] Elida Ireland [facility] Medical Oncology Start: 12-05-2024 Adult BMI Screening Adult BMI Screening [facility] Start: 12-05-2024 Tobacco Screening Tobacco Screening [facility] Start: 12-04-2024 End: 12-04-2024 Patient encounter procedure 12/04/2024 1:30 PM EST [facility] [address] [place] [address] Fernie Clark, [address], [place] [address] [facility] Start: 12-03-2024 End: 12-03-2024 ambulatory 12/03/2024 9:30 AM EST Infusion Elida Ireland [facility] On[facility] [address] [place] [phone] Elida Ireland [facility] Start: 11-28-2024 Adult BMI Screening Adult BMI Screening [facility] Start: 11-28-2024 Tobacco Screening Tobacco Screening [facility] Start: 11-27-2024 End: 11-27-2024 Patient encounter procedure 11/27/2024 1:00 PM EST Off ice Visit [facility] [address] [place] [address] Fernie Clark DO [address], [place] [address] [facility] Start: 11-26-2024 Adult BMI Screening Adult BMI Screening [facility] Start: 11-26-2024 Depression Screening Depression Screening [facility] Start: 11-26-2024 Fall Risk Screening Fall Risk Screening [facility] Start: 11-26-2024 Tobacco Screening Tobacco Screening [facility] Start: 11-26-2024 End: 11-26-2024 ambulatory 11/26/2024 9:30 AM EST Infusion Elida L Beka [facility] On[facility] [address] [place] [phone] Elida Ireland [facility] Start: 11-21-2024 Adult BMI Screening Adult BMI Screening [facility] Start: 11-20-2024 Bacteria identified in Urine by Culture Urine Culture [facility] Start: 11-20-2024 Urine culture [facility] Start: 11-18-2024 End: 11-18-2024 ambulatory 11/18/2024 11:30 AM EST Infusion Elida L Beka [facility] On[facility] [address] [place] [phone] Elida Ireland [facility] Start: 11-11-2024 End: 11-11-2024 ambulatory 11/11/2024 9:30 AM EST Infusion Elida L Beka [facility] [address] [place] [phone] Elida Ireland [facility] Start: 11-04-2024 End: 11-04-2024 ambulatory 11/04/2024 9:30 AM EST Infusion Elida Ireland [facility] [address] [place] [phone] Elida Ireland [facility] Start: 10-29-2024 End: 10-29-2024 ambulatory 10/29/2024 9:30 AM EST Infusion Elida Ireland [facility] [address] [place] [phone] Elida Ireland [facility] Start: 10-22-2024 End: 10-22-2024 ambulatory 10/22/2024 9:30 AM EST Infusion Elida Ireland [facility] [address] [place] [phone] Elida Ireland [facility] Start: 10-20-2024 Subsequent hospital visit by physician 10/20/2024 11:33 AM EST Hospital Encounter [facility] [address] [place] [address] Hypomagnesemia [facility] Comment on above: Hypomagnesemia Start: 10-18-2024 Adult BMI Screening Adult BMI Screening [facility] Start: 10-18-2024 Depression Screening Depression Screening [facility] Start: 10-18-2024 Tobacco Screening Tobacco Screening [facility] Start: 10-15-2024 End: 10-15-2024 ambulatory 10/15/2024 9:30 AM EST Infusion Elida Ireland [facility] [address] [place] [phone] Elida Ireland [facility] Start: 10-08-2024 End: 10-08-2024 ambulatory 10/08/2024 9:30 AM EST Infusion Elida Ireland [facility] [address] [place] [phone] Elida Acen [facility] Start: 10-07-2024 End: 10-07-2024 ambulatory 10/07/2024 9:30 AM EST Infusion Elida Ireland [facility] [address] [place] [address] Elida Ireland [facility] Start: 10-01-2024 End: 10-01-2024 ambulatory 10/01/2024 9:30 AM EST Infusion Elida Ireland [facility] [address] [place] [phone] Elida Ireland [facility] Start: 09-26-2024 End: 09-26-2024 Admission to same day surgery center 09/26/2024 12:30 PM EST - 09/26/2024 1:30 PM EST Surgery [facility] [address] [place] [address] Daniel Guerrero, DO [address] [place] [address] ESOPHAGOGASTRODUODENOSCOPY DIAGNOSTIC [85735 (CPT )] [facility] Comment on above: ESOPHAGOGASTRODUODENOSCOPY DIAGNOSTIC [4 3235 (CPT )] Start: 09-26-2024 End: 09-26-2024 Esophagogastroduodenoscopy transoral diagnostic ESOPHAGOGASTRODUODENOSCOPY DIAGNOSTIC ross's esophagus 09/26/2024 12:30 PM EST [facility] Start: 09-26-2024 Subsequent hospital visit by physician 09/26/2024 12:30 PM EST Hospital Encounter [facility] [address] [place] [phone] Daniel Guerrero, DO [address] [place] [address] [facility] Start: 09-25-2024 End: 09-25-2024 ambulatory 09/25/2024 3:40 PM EST Suppo rt Visit [facility] [address] [place] [address] [facility] Start: 09-24-2024 End: 09-24-2024 ambulatory 09/24/2024 9:30 AM EST Infusion Elida Ireland [facility] [address] [place] [phone] Elida Ireland [facility] Start: 09-17-2024 End: 09-17-2024 ambulatory 09/17/2024 9:30 AM EST Infusion Eliad Irealnd [facility] [address] [place] [phone] Elida Ireland [facility] Start: 09-10-2024 End: 09-10-2024 ambulatory 09/10/2024 9:30 AM EDT Infusion Elida Ireland [facility] [address] [place] [phone] Elida Ireland [facility] Start: 09-03-2024 End: 09-03-2024 ambulatory 09/03/2024 9:30 AM EDT Infusion Elida Ireland [facility] [address] [place] [phone] Elida Ireland [facility] Start: 08-27-2024 End: 08-27-2024 ambulatory 08/27/2024 9:30 AM EDT Infusion Elida Ireland [facility] [address] [place] [phone] Elida Ireland [facility] Start: 08-20-2024 End: 08-20-2024 ambulatory 08/20/2024 9:30 AM EDT Infusion Elida Ireland [facility] [address] [place] [phone] Elida Ireland [facility] Start: 08-13-2024 End: 08-13-2024 ambulatory 08/13/2024 9:30 AM EDT Infusion Elida Ireland [facility] [address] [place] [address] Elida Ireland [facility] Start: 08-06-2024 End: 08-06-2024 ambulatory 08/06/2024 9:30 AM EDT Infusion Elida Ireland [facility] [address] [place] [phone] Elida Ireland [facility] Start: 07-30-2024 End: 07-30-2024 ambulatory 07/30/2024 9:30 AM EDT Infusion Elida Ireland [facility] - [facility] On[facility] [address] [place] [phone] Elidarudolph Ireland [facility] Start: 07-24-2024 Fall Risk Screening Fall Risk Screening [facility] Start: 07-23-2024 End: 07-23-2024 ambulatory 07/23/2024 9:30 AM EDT Infusion Elida Ireland [facility] [address] [place] [phone] Elida Ireland [facility] Start: 07-16-2024 End: 07-16-2024 ambulatory 07/16/2024 9:30 AM EDT Infusion Elida Ireland [facility] [address] [place] [phone] Elida Merritt Beka [facility] Start: 07-13-2024 COVID-19 Vaccine ( season) COVID-19 Vaccine ( season) [facility] Start: 07-13-2024 COVID-19 Vaccine ( season) COVID-19 Vaccine () [facility] Start: 07-09-2024 End: 07-09-2024 ambulatory 07/09/2024 9:30 AM EDT Infusion Elida L Beka [facility] [address] [place] [phone] Elida Ireland [facility] Start: 07-02-2024 End: 07-02-2024 ambulatory 07/02/2024 9:30 AM EDT Infusion Elida Ireland [facility] [address] [place] [address] Elida Ireland [facility] Start: 06-25-2024 End: 06-25-2024 ambulatory 06/25/2024 9:30 AM EDT Infusion Elida Ireland [facility] [address] [place] [address] Elida Ireland [facility] Start: 06-18-2024 End: 06-18-2024 ambulatory 06/18/2024 9:30 AM EDT Infusion Elida Ireland [facility] Oncology [address] [place] [phone] Elida Ireland [facility] Start: 06-11-2024 End: 06-11-2024 ambulatory 06/11/2024 9:30 AM EDT Infusion Elida Ireland [facility] [address] [place] [phone] Elida Ireland [facility] Start: 06-04-2024 End: 06-04-2024 ambulatory 06/04/2024 9:30 AM EDT Infusion Elida Ireland [facility] [address] [place] [phone] Elida Ireland [facility] Start: 05-28-2024 End: 05-28-2024 ambulatory 05/28/2024 9:30 AM EDT Infusion Elida Ireland [facility] [address] [place] [phone] Elida Ireland [facility] Start: 05-27-2024 End: 05-27-2024 Patient encounter procedure 05/27/2024 1:30 PM EDT Off ice Visit [facility] [address] [place] [address] Fernie Clark, DO [address] [facility], [place] [address] [facility] Start: 05-21-2024 End: 05-21-2024 ambulatory 05/21/2024 9:30 AM EDT Infusion Elida Ireland [facility] [address] [place] [phone] Elida Ireland [facility] Start: 05-14-2024 End: 05-14-2024 ambulatory 05/14/2024 9:30 AM EDT Infusion Elida Ireland [facility] [address] [place] [phone] Elida Ireland [facility] Start: 05-07-2024 End: 05-07-2024 ambulatory 05/07/2024 9:30 AM EDT Infusion Elida Ireland [facility] [address] [place] [phone] Elida Ireland [facility] Start: 04-30-2024 End: 04-30-2024 ambulatory 04/30/2024 9:30 AM EDT Infusion Elida René Beka [facility] [address] [place] [phone] Eliad [facility] Start: 04-23-2024 End: 04-23-2024 ambulatory 04/23/2024 9:30 AM EDT Infusion Elida Ireland [facility] [address] [place] [phone] Elida Ireland [facility] Start: 04-16-2024 End: 04-16-2024 ambulatory 04/16/2024 9:30 AM EDT Infusion Elida Ireland [facility] [address] [place] [phone] Elida Ireland [facility] Start: 04-09-2024 End: 04-09-2024 ambulatory 04/09/2024 9:30 AM EDT Infusion Elida Ireland [facility] [address] [place] [phone] Elida Ireland [facility] Start: 04-02-2024 End: 04-02-2024 ambulatory 04/02/2024 9:30 AM EDT Infusion Elida Ireland [facility] [address] [place] [phone] Elida Ireland [facility] Start: 03-26-2024 End: 03-26-2024 ambulatory 03/26/2024 9:30 AM EDT Infusion Elida Ireland [facility] [address] [place] [phone] Elida Ireland [facility] Start: 03-19-2024 End: 03-19-2024 ambulatory 03/19/2024 9:30 AM EDT Infusion Elida Ireland [facility] [address] [place] [phone] Elida Ireland [facility] Start: 03-05-2024 End: 03-05-2024 ambulatory 03/05/2024 9:30 AM EDT Infusion Elida Ireland [facility] [address] [place] [phone] Elida Ireland [facility] Start: 02-27-2024 End: 02-27-2024 ambulatory 02/27/2024 9:30 AM EDT Infusion Elida Ireland [facility] [address] [place] [phone] Elida Ireland [facility] Start: 02-25-2024 End: 02-25-2024 Patient encounter procedure 02/25/2024 2:45 PM EDT Off ice Visit [facility] [address] [place] [address] Fernie Clark, DO [address], [place] [address] [facility] Start: 02-20-2024 End: 02-20-2024 ambulatory 02/20/2024 9:30 AM EDT Infusion Elida L Beka [facility] [address] [place] [phone] Elida Ireland [facility] Start: 02-13-2024 End: 02-13-2024 ambulatory 02/13/2024 9:30 AM EDT Infusion Elida L Beka [facility] [address] [place] [phone] Elida René Beka [facility] Start: 02-06-2024 End: 02-06-2024 ambulatory 02/06/2024 9:30 AM EDT Infusion Elida René Beka [facility] [address] [place] [phone] Elida René Beka [facility] Start: 01-30-2024 End: 01-30-2024 ambulatory 01/30/2024 9:30 AM EDT Infusion Elida L Beka [facility] [address] [place] [phone] Elida René Beka [facility] Start: 01-23-2024 End: 01-23-2024 ambulatory 01/23/2024 9:30 AM EDT Infusion Elida René Beka [facility] [address] [place] [phone] Elida Ireland [facility] Start: 01-16-2024 End: 01-16-2024 ambulatory 01/16/2024 9:30 AM EST Infusion Elida René Beka [facility] [address] [place] [phone] Elida Ireland [facility] Start: 01-09-2024 End: 01-09-2024 ambulatory 01/09/2024 9:30 AM EST Infusion Elida L Beka [facility] [place] [address] Elida L Beka [facility] Start: 01-08-2024 End: 01-08-2024 Patient encounter procedure 01/08/2024 1:00 PM EST [facility] [address] [place] [address] [facility] Start: 01-02-2024 End: 01-02-2024 ambulatory 01/02/2024 9:30 AM EST Infusion Elida L Beka [facility] Medical Oncology [address] [place] [phone] Elida L Beka [facility] Start: 12-26-2023 End: 12-26-2023 ambulatory 12/26/2023 9:30 AM EST Infusion Elida L Beka [facility] [address] [place] [phone] Elida L Beka [facility] Start: 12-19-2023 End: 12-19-2023 ambulatory 12/19/2023 9:30 AM EST Infusion Elida L Beka [facility] [address] [place] [phone] Elida L Beka [facility] Start: 12-12-2023 Administration of varicella zoster vaccine Zoster (Shingles) Vaccine (1 of 2) [facility] Comment on above: Postponed from 03/12/2015 (Patient Refus ed) Start: 12-12-2023 Medicare Annual Wellness Visit Medicare Annual Wellness Visi t [employer] Start: 12-12-2023 End: 12-12-2023 ambulatory 12/12/2023 9:30 AM EST Infusion Elida L Beka [facility] [address] [place] [phone] Elida René Beka [facility] Start: 12-05-2023 End: 12-05-2023 ambulatory 12/05/2023 9:30 AM EST Infusion Elida Ireland [facility] [address] [place] [address] Elida Ireland [facility] Start: 11-28-2023 End: 11-28-2023 ambulatory 11/28/2023 9:30 AM EST Infusion Elida Ireland [facility] [place] [address] Elida Ireland [facility] Medical Oncology Start: 11-26-2023 End: 11-26-2023 Patient encounter procedure 11/26/2023 1:30 PM EST Off ice Visit [facility] [address] [place] [address] Fernie Clark DO [address], [place] [address] [facility] Start: 11-21-2023 End: 11-21-2023 ambulatory 11/21/2023 9:30 AM EST Infusion Elida Ireland [facility] Medical Oncology [address] [place] [phone] Elida Ireland [facility] Medical Oncology Start: 07-13-2023 COVID-19 Vaccine ( season) COVID-19 Vaccine ( season) [facility] Start: 03-12-2015 Administration of varicella zoster vaccine Zoster (Shingles) Vaccine (1 of 2) [facility] Start: 1960 Adult BMI Follow Up Plan Adult BMI Follow Up Plan [facility] End: 05-27-2025 Bacteria identified in Urine by Culture Urine culture (clean catch) Microbiology Routine Dysuria 1 Occurrences starting 05/27/2024 until 05/27/2025 [facility] Work Phone: Comment on above: 1 Occurrences starting 05/27/2024 until 05/27/2025 End: 11-21-2024 Comprehensive metabolic 2000 panel - Serum or Plasma Comprehensive metabolic panel Lab Routine Essential hypertension 1 Occurrences starting 11/21/2023 until 11/21/2024 [employer] Work Phone: Comment on above: 1 Occurrences starting 11/21/2023 until 11/21/2024 End: 09-04-2025 EMG EMG Neurology Routine Paresthesia of right lower extremity 1 Occurrences starting 09/04/2024 until 09/04/2025 [employer] Work Phone: Comment on above: 1 Occurrences starting 09/04/2024 until 09/04/2025 End: 09-04-2025 Esophagogastroduodenoscopy EGD GI Routine Ross's esophagus with dysplasia 1 Occurrences starting 09/04/2024 until 09/04/2025 [facility] Comment on above: 1 Occurrences starting 09/04/2024 until 09/04/2025 Esophagogastroduoden oscopy transoral diagnostic ESOPHAGOGASTRODUODENOSCOPY DIAGNOSTIC 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 [facility] End: 11-21-2024 Hemoglobin A1c/Hemoglobin.total in Blood Hemoglobin A1c Lab Routine Type 2 diabetes mellitus with stage 3b chronic kidney disease, with long-term current use of insulin ([facility]) 1 Occurrences starting 11/21/2023 until 11/21/2024 [facility] Comment on above: 1 Occurrences starting 11/21/2023 until 11/21/2024 End: 11-21-2024 Lipid panel Lipid panel Lab Routine Mixe d hyperlipidemia 1 Occurrences starting 11/21/2023 until 11/21/2024 [facility] Comment on above: 1 Occurrences starting 11/21/2023 until 11/21/2024 End: 11-18-2025 Magnesium [Mass/volume] in Serum or Plasma Magnesium Lab Routine Hypomagnesemia weekly for 52 Occurrences starting 11/18/2024 until 11/18/2025 [employer] Work Phone: Comment on above: weekly for 52 Occurrences starting 11/18 until 11/18/2025 End: 11-19-2024 Magnesium [Mass/volume] in Serum or Plasma Magnesium Lab STAT Hypomagnesemia weekly for 52 Occurrences starting 11/19/2023 until 11/19/2024 [employer] Work Phone: Comment on above: weekly for 52 Occurrences starting 11/19 until 11/19/2024 End: 11-21-2024 Microalbumin - Albumin: Creatinine Urine Ratio Microalbumin - Albumin: Creatinine Urine Ratio Lab Routine Type 2 diabetes mellitus with stage 3b chronic kidney disease, with long-term current use of insulin ([facility]) 1 Occurrences starting 11/21/2023 until 11/21/2024 [facility] Comment on above: 1 Occurrences starting 11/21/2023 until 11/21/2024 End: 01-16-2025 Potassium [Moles/volume] in Serum or Plasma Potassium Lab Routine 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 ([facility]) 1 Occurrences starting 01/17/2024 until 01/16/2025 [facility] Work Phone: Comment on above: 1 Occurrences starting 01/17/2024 until 01/16/2025 Renal function 2000 panel - Serum or Plasma [facility] Immunizations Immunization Date Immunization Notes Care Provider Fa [facility] 08-31-2021 Influenza, High-dose , Quadrivalent Fernie Furlong DO Work Phone: [facility] 02-01-2021 COVID-19, mRNA, LNP- S, PF, 30mcg/0.3mL Dose Fernie Furlong DO Work Phone: [facility] 01-10-2021 COVID-19, mRNA, LNP- S, PF, 30mcg/0.3mL Dose Fernie Furlong DO Work Phone: [facility] 07-29-2020 influenza, high dose seasonal, preservative-free Ferine Furlong DO Work Phone: [facility] 09-03-2019 influenza, high dose seasonal, preservative-free Fernie Furlong DO Work Phone: [facility] 09-30-2018 tetanus toxoid, redu kiran diphtheria toxoid, and acellular pertussis vaccine, adsorbed Fernie Furlong DO Work Phone: [facility] 09-19-2018 influenza, high dose seasonal, preservative-free Fernie Furlong DO Work Phone: [facility] 09-03-2017 influenza virus vacc ine, unspecified formulation Fernie Furlong DO Work Phone: [facility] 07-27-2015 influenza, seasonal, injectable, preservative free Fernie Furlong DO Work Phone: [facility] 07-27-2015 seasonal influenza, intradermal, preservative free Fernie Furlong DO Work Phone: [facility] 01-15-2015 zoster vaccine, live Fernie Furlong DO Work Phone: [facility] 01-15-2015 zoster vaccine, unspecified formulation Fernie Furlong DO Work Phone: [facility] 07-16-2014 influenza, seasonal, injectable Fernie Furlong DO Work Phone: [facility] 10-20-2013 pneumococcal conjuga te vaccine, 13 valent Fernie Furlong DO Work Phone: [facility] 08-30-2011 tetanus and diphther ia toxoids, not adsorbed, for adult use Fernie Furlong DO Work Phone: [facility] 08-20-2008 pneumococcal polysaccharide vaccine, 23 valent Fernie Furlong DO Work Phone: [facility] Payers Date Payer Category Payer Unknown 11-12-2015 Managed Care Other (unspecified) [facility] [id number] 11-12-2015 Private Health Insurance [facility] [id number] 11/12/2015-Present [phone] [address] [place] [address] [id number] 09-12-2007 Medicare [id number] 11-12-1959 Medicare [id number] 11-12-1959 Unknown [id number] 1942 Unknown [id number] 2.16.840.1.752168.3.579.2 .647 1942 Unknown [id number] 2.16.840.1.157353.3.579.2 .593 1942 Unknown [id number] 2.16.840.1.674995.3.579.2 .593 1942 Unknown [id number] 2.16.840.1.855390.3.579.2 .593 1942 Unknown [id number] 2.16.840.1.315245.3.579.2 .593 1942 Unknown [id number] 2.16.840.1.095837.3.579.2 .593 1942 Unknown [id number] 2.16.840.1.658504.3.579.2 .593 1942 Unknown [id number] 2.16.840.1.786822.3.579.2 .593 1942 Unknown [id number] 2.16.840.1.720126.3.579.2 .593 1942 Unknown [id number] 2.16.840.1.039501.3.579.2 .593 1942 Unknown [id number] 2.16.840.1.465333.3.579.2 .593 1942 Unknown [id number] 2.16.840.1.114202.3.579.2 .593 1942 Unknown [id number] 2.16.840.1.983536.3.579.2 .1286 1942 Unknown [id number] 2.16.840.1.209333.3.579.2 .1286 1942 Unknown [id number] 2.16.840.1.865419.3.579.2 .128 1942 Unknown [id number] 2.16.840.1.049309.3.579.2 .196 1942 Unknown [id number] 2.16.840.1.547288.3.579.2 .196 1942 Unknown [id number] 2.16.840.1.442964.3.579.2 .196 1942 Unknown [id number] 2.16.840.1.161491.3.579.2 .196 1942 Unknown [id number] 2.16.840.1.578732.3.579.2 .1286 1942 Unknown [id number] 2.16.840.1.651571.3.579.2 .128 1942 Unknown [id number] 2.16.840.1.417627.3.579.2 .128 1942 Unknown [id number] 2.16.840.1.011458.3.579.2 .128 1942 Unknown [id number] 2.16.840.1.336474.3.579.2 .128 1942 Unknown [id number] 2.16.840.1.831253.3.579.2 .128 1942 Unknown [id number] 2.16.840.1.161220.3.579.2 .1285 1942 Unknown [id number] 2.16.840.1.577185.3.579.2 .1285 1942 Unknown [id number] 2.16.840.1.786044.3.579.2 .1285 1942 Unknown [id number] 2.16840.1.926282.3.579.2 .1285 1942 Unknown [id number] 2.16840.1.410043.3.579.2 .1285 1942 Unknown [id number] 2.840.1.163119.3.579.2 .1285 1942 Unknown [id number] 2.840.1.417790.3.579.2 .1285 1942 Unknown [id number] 2.840.1.842327.3.579.2 .1285 1942 Unknown [id number] 2.840.1.139572.3.579.2 .1285 1942 Unknown [id number] 2.840.1.425066.3.579.2 .1285 1942 Unknown [id number] 2.840.1.832526.3.579.2 .1285 1942 Unknown [id number] 2.840.1.039764.3.579.2 .1285 1942 Unknown [id number] 2.840.1.221390.3.579.2 .1285 1942 Unknown [id number] 2.16840.1.916924.3.579.2 .1285 1942 Unknown [id number] 2.16840.1.945138.3.579.2 .1285 1942 Unknown [id number] 2.16840.1.620658.3.579.2 .1285 1942 Unknown [id number] 2.16.840.1.576626.3.579.2 .1285 1942 Unknown [id number] 2.16.840.1.169262.3.579.2 .1285 1942 Unknown [id number] 2.16.840.1.234362.3.579.2 .1285 1942 Unknown [id number] 2.16.840.1.530151.3.579.2 .1285 1942 Unknown [id number] 2.16840.1.541404.3.579.2 .1285 1942 Unknown [id number] 2.840.1.721220.3.579.2 .1285 1942 Unknown [id number] 2.840.1.392243.3.579.2 .1285 1942 Unknown [id number] 2.16840.1.874404.3.579.2 .1285 1942 Unknown [id number] 2.840.1.672065.3.579.2 .1285 1942 Unknown [id number] 2.16.840.1.571672.3.579.2 .1285 1942 Unknown [id number] 2.16840.1.516497.3.579.2 .1285 1942 Unknown [id number] 2.16840.1.746837.3.579.2 .1285 1942 Unknown [id number] 2.16840.1.522437.3.579.2 .1285 1942 Unknown [id number] 2.16.840.1.127046.3.579.2 .1285 1942 Unknown [id number] 2.16840.1.975157.3.579.2 .1285 1942 Unknown [id number] 2.16.840.1.763751.3.579.2 .1285 1942 Unknown [id number] 2.16.840.1.667315.3.579.2 .1285 1942 Unknown [id number] 2.16.840.1.041483.3.579.2 .1285 1942 Unknown [id number] 2.16.840.1.226369.3.579.2 .1285 1942 Unknown [id number] 2.16.840.1.472939.3.579.2 .1285 1942 Unknown [id number] 2.16.840.1.898880.3.579.2 .1285 1942 Unknown [id number] 2.840.1.579104.3.579.2 .1285 1942 Unknown [id number] 2.16.840.1.619345.3.579.2 .1285 1942 Unknown [id number] 2.16.840.1.770559.3.579.2 .1285 1942 Unknown [id number] 2.16.840.1.903710.3.579.2 .1285 1942 Unknown [id number] 2.16840.1.754371.3.579.2 .1285 1942 Unknown [id number] 2.16.840.1.058381.3.579.2 .1285 1942 Unknown [id number] 2.16.840.1.467464.3.579.2 .1285 1942 Unknown [id number] 2.16.840.1.797286.3.579.2 .1285 1942 Unknown [id number] 2.16.840.1.440422.3.579.2 .1285 1942 Unknown [id number] 2.16.840.1.762370.3.579.2 .1285 1942 Unknown [id number] 2.16.840.1.423307.3.579.2 .1285 1942 Unknown [id number] 2.16.840.1.490058.3.579.2 .1285 1942 Unknown [id number] 2.16.840.1.055584.3.579.2 .1285 1942 Unknown [id number] 2.16.840.1.539571.3.579.2 .1285 1942 Unknown [id number] 2.16.840.1.512248.3.579.2 .1285 1942 Unknown [id number] 2.16.840.1.292783.3.579.2 .1285 1942 Unknown [id number] 2.16.840.1.058784.3.579.2 .1285 1942 Unknown [id number] 2.16.840.1.992953.3.579.2 .1285 1942 Unknown [id number] 2.16.840.1.489844.3.579.2 .1285 1942 Unknown [id number] 2.16.840.1.884560.3.579.2 .1285 1942 Unknown [id number] 2.16.840.1.408873.3.579.2 .1285 1942 Unknown [id number] 2.16.840.1.723676.3.579.2 .1285 1942 Unknown [id number] 2.16.840.1.049362.3.579.2 .1285 1942 Unknown [id number] 2.16.840.1.201559.3.579.2 .1285 1942 Unknown [id number] 2.16.840.1.079098.3.579.2 .128 1942 Unknown [id number] 2.16.840.1.013945.3.579.2 .1285 1942 Unknown [id number] 2.16.840.1.168023.3.579.2 .1285 1942 Unknown [id number] 2.16.840.1.503781.3.579.2 .1285 1942 Unknown [id number] 2.16.840.1.584299.3.579.2 .1285 1942 Unknown [id number] 2.16.840.1.881583.3.579.2 .1285 1942 Unknown [id number] 2.16.840.1.496574.3.579.2 .1285 1942 Unknown [id number] 2.16.840.1.761896.3.579.2 .1285 1942 Unknown [id number] 2.16.840.1.265682.3.579.2 .1285 1942 Unknown [id number] 2.16.840.1.913384.3.579.2 .1285 1942 Unknown [id number] 2.16.840.1.033397.3.579.2 .1285 1942 Unknown [id number] 2.16.840.1.008315.3.579.2 .1285 1942 Unknown [id number] 2.16.840.1.551936.3.579.2 .1285 1942 Unknown [id number] 2.16.840.1.008382.3.579.2 .1285 1942 Unknown [id number] 2.16.840.1.072241.3.579.2 .1285 1942 Unknown [id number] 2.16.840.1.038566.3.579.2 .128 1942 Unknown [id number] 2.16.840.1.230177.3.579.2 .128 1942 Unknown [id number] 2.16.840.1.554457.3.579.2 .128 1942 Unknown [id number] 2.16.840.1.242293.3.579.2 .1285 1942 Unknown [id number] 2.16.840.1.048227.3.579.2 .128 1942 Unknown [id number] 2.16.840.1.521775.3.579.2 .1285 1942 Unknown [id number] 2.16.840.1.412746.3.579.2 .128 1942 Unknown [id number] 2.16840.1.278016.3.579.2 .1285 1942 Unknown [id number] 2.16.840.1.482146.3.579.2 .128 1942 Unknown [id number] 2.16.840.1.224132.3.579.2 .1285 1942 Unknown [id number] 2.16.840.1.372398.3.579.2 .128 1942 Unknown [id number] 2.16840.1.892772.3.579.2 .1285 1942 Unknown [id number] 2.16.840.1.287541.3.579.2 .128 1942 Unknown [id number] 2.16.840.1.497407.3.579.2 .1285 1942 Unknown [id number] 2.16.840.1.146278.3.579.2 .128 1942 Unknown [id number] 2.16.840.1.393514.3.579.2 .1286 [facility] [id number] Self-pay Self Pay [id number] Social History Date Type Detail Facility Unknown if ever smoked [facility] Start: 01-08-2024 End: 08-06-2024 Sex Assigned At [facility] Start: 1940 Sex Assigned At Female [facility] Start: 05-01-2024 End: 05-01-2024 Tobacco smoking status NHIS Never smoked tobacco (finding) [facility] Start: 05-04-2017 Tobacco use and exposure Smokeless tobacco non-user [facility] Start: 09-26-2024 End: 09-30-2024 Alcoholic beverage intake Ex-drinker (finding) [facility] Start: 01-08-2024 End: 08-06-2024 History of Social function [facility] Has the [employer], or [employer] threatened to shut off services in your home in past 12Mo No [facility] Are you now , , , , never or living with a partner? [facility] How often to you hav e a drink containing alcohol? Never [facility] How many standard drinks containing alcohol do you have on a typical day? Patient does not drink [facility] Do you feel stress - tense, restless, nervous, or anxious, or unable to sleep at night because your mind is troubled all the time - these days [OSQ] Not at all [facility] Start: 1940 Sex assigned at Not on file [facility] Start: 06-17-2015 End: 01-05-2025 Sex Female (finding) [facility] Start: 10-18-2023 End: 09-10-2024 Alcohol intake Current drinker of alcohol (finding) [facility] Medical Equipment Procedure Code Equipment Code Equipment Origin al Text Equipment Identifier Dates 1 strip by other route in the morning and 1 strip before bedtime. [id number] Start: 08-30-2023 End: 11-18-2024 1 Lancet. by miscellaneous route in the morning and 1 Lancet. before bedtime. [id number] Start: 08-30-2023 USE 1 NEEDLE THR EE TIMES A DAY [id number] Start: 07-17-2024 1 strip by other route in the morning and 1 strip before bedtime. [id number] Start: 11-18-2024 USE 1 NEEDLE THR EE TIMES A DAY [id number] Start: 07-23-2023 End: 07-17-2024 Clinical Notes 12-27-2021 [...] cell and transferred documented in this encounter [facility] 01-03-2025 Telephone encounter Note Contract: [phone] Shan Nair re not responding appropriately, not registering well Relayed info to Dr Clark on cell and transferred [facility] 01-03-2025 Miscellaneous Notes Contract: 198 Jemima RE Notifying Doctor of Status Condition not eating or drinking high blood pressure and sleeping more than normal Contract: [address] Clark and Left message to call [facility] Dr. Clark returned page and was connected to the caller. documented in this encounter [facility] 01-03-2025 Telephone encounter Note Contract: 198 [facility] [place] RE Notifying Doctor of Status Condition not eating or drinking high blood pressure and sleeping more than normal [facility] 01-03-2025 Telephone encounter Note Contract: [address] Clark and Left message to call [facility] 01-03-[address] Clark returned page and was connected to the caller. [facility] 12-26-2024 History of Presen t illness Narrative Images from the original note were not included. Patient Name: Adore Wolff Date of : 1940 Date of Service: 12/26/2024 [place] [facility] [place] of Visit: Skilled Visit Subjective Adore Wolff is a 84 y.o. female seen today at group home facility for therapy visit. Adore has several [...] dyne, Tetracyclines, Diltiazem, and Linagliptin [facility]: [facility] BP 178/78 Pulse 64 Temp 36.5 [...] Fernie Clark DO documented in this encounter [facility] 12-19-2024 History of Presen t illness Narrative Patient Name: Adore Wolff Date of : 1940 Date of Service: 12/19/2024 Facility: [facility] [place] Type of Visit: Skilled Visit Subjective Adore Wolff is a 84 y.o. female seen today at group home facility for therapy visit. Adore is having [...] dyne, Tetracyclines, Diltiazem, and Linagliptin Code Status: DNC-A Objective Pulse 60 Temp 36.5 C (97.7 [...] Fernie Clark DO documented in this encounter [facility] 12-18-2024 Miscellaneous Notes NEW EMG / NCV ORDER 1st attempt: Floral Designer contacted patient's spouse and informed him that we have received patient's EMG order. Spouse stated that he is not interested in scheduling at this time, as the patient is currently in a rehab facility but will call back if anything should change. Floral Designer reassured him that their referral is valid for up to one year should he change his mind - he stated understanding. documented in this encounter [facility] 12-18-2024 Telephone encounter Note NEW EMG / NCV ORDER 1st attempt: Floral Designer contacted patient's spouse and informed him that we have received patient's EMG order. Spouse stated that he is not interested in scheduling at this time, as the patient is currently in a rehab facility but will call back if anything should change. Floral Designer reassured him that their referral is valid for up to one year should he change his mind - he stated understanding. [facility] 12-02-2024 Miscellaneous Notes Fanny the nurse at the [facility] called and stated you were in yesterday evening and stated they had aske for a refill for tramodol and the lyrica be sent to [facility]. Also you had [...] I did send [facility] a prescription [facility] [place]. If it is a different synchrony then I need to resend it somewhere else Spoke with Fanny and she will follow up with Pharmacy documented in this encounter [facility] 12-02-2024 Telephone encounter Note Fanny the nurse at the [facility] called and stated you were in yesterday evening and stated they had aske for a refill for tramodol and the lyrica be sent to [facility]. Also you had discontinued the trazadone and never put an order in. Do you still want this D/C? If so did you want something in replace of it? Also she is very lethargic today. [facility] 12-02-2024 Telephone encounter Note It could not find any order sheets so I gave a verbal order to stop the trazodone to the nurse. I also asked her if she needed any of her controlled substances and she said no. I did send in a prescription to [facility] [place]. If it is a different synchrony then I need to resend it somewhere else [facility] 12-02-2024 Telephone encounter Note Spoke with Fanny and she will follow up with Pharmacy [facility] 12-01-2024 Miscellaneous Notes Contract: 198 Joanie @ [facility] called for orders to have patient sent to hospital for evaluation OC198 I called Dr Clark & transferred him to Joanie [facility] [facility] documented in this encounter [facility] 12-01-2024 Telephone encounter Note Contract: 198 Joanie @ [employer] [facility] called for orders to have patient sent to hospital for evaluation [facility] 12-01-2024 Telephone encounter Note OC198 I called Dr Clark & transferred him to [employer] [facility] 11-24-2024 History of Presen t illness Narrative [...] possible. Please advise. documented in this encounter [facility] 11-24-2024 Miscellaneous Notes Patient's spouse called CCM [...] be septic Notified documented in this encounter [facility] 11-24-2024 Telephone encounter Note Patient's spouse called [facility] nurse this morning with concerns about [...] today by PCP if possible. Please advise. [facility] 11-24-2024 Telephone encounter Note She has altered mental status she should go to the emergency room. She could be septic [facility] 11-24-2024 Telephone encounter Note Notified [facility] 11-17-2024 History of Presen t illness Narrative Diabetic Supplies: After numerous attempts by SN and MA we have been unable to get in touch with [facility] regarding patient diabetes supplies. Patient is currently out of test strips and would like order sent to new DME supplier. Could you please fax order to [employer] for [employer]rix meter and strips. Fax number: [phone]. [facility] Primary Care Chronic Care Nurse Customer Services Manager [phone] documented in this encounter [facility] 11-17-2024 Miscellaneous Notes Diabetic Supplies: After numerous attempts by and JARON we have been unable to get in touch with [facility] regarding patient diabetes supplies. Patient is currently out of test strips and would like order sent to new DME supplier. Could you please fax order to [facility] for TruMetrix meter and strips. Fax number: [phone]. [facility] Primary Care Chronic Care Nurse Customer Services Manager [phone] Please fax to [employer]. Prescriptions were printed documented in this encounter [facility] 11-17-2024 Telephone encounter Note Diabetic Supplies: After numerous attempts by and JARON we have been unable to get in touch with [facility] regarding patient diabetes supplies. Patient is currently out of test strips and would like order sent to new DME supplier. Could you please fax order to [facility] for TruMetrix meter and strips. Fax number: [phone]. [facility] Chronic Care Nurse Customer Services Manager [phone] [facility] 11-17-2024 Telephone encounter Note Please fax to [employer]. Prescriptions were printed [facility] 11-04-2024 History of Presen t illness Narrative Patient is here for 2g IV magnesium as scheduled. Mg level 1.7. PIV initiated, blood return noted, flushes with ease. NS started at KVO. Magnesium infused over 2 hours. Line flushed. Pt tolerated well. PIV dc'd, pressure dressing applied. Pt dc'd in stable ambulatory condition with spouse. documented in this encounter [facility] 10-20-2024 History of Presen t illness Narrative Patient mag level is 1.9, will not need magnesium infusion this week. Patient made aware and will continue on with next week's lab draw. documented in this encounter [facility] 10-07-2024 Miscellaneous Notes Call patient and see if she requested this. It was stopped in the summertime documented in this encounter [facility] 10-07-2024 Telephone encounter Note Call patient and see if she requested this. It was stopped in the summertime [facility] 10-07-2024 History of Presen t illness Narrative Patient is here for 2g IV magnesium as scheduled. Mg level 1.7. PIV initiated, blood return noted, flushes with ease. NS started at KVO. Magnesium infused over 2 hours. Line flushed. Pt tolerated well. PIV dc'd, pressure dressing applied. Pt dc'd in stable ambulatory condition with spouse. documented in this encounter [facility] 10-01-2024 History of Presen t illness Narrative Pt here for 2g IV magnesium as scheduled. Mg level 1.7. PIV initiated to RFA. Brisk blood return noted, flushes with ease. NS started at KVO. Magnesium infused over 2 hours without incident. Pt tolerated well. Line flushed. PIV dc'd. Pressure dressing applied. Dc'd in stable ambulatory condition with updated treatment calendar. documented in this encounter [facility] 09-10-2024 Miscellaneous Notes NEW EMG/NCV ORDER First attempt- Left Voicemail Dx: Paresthesia of right lower extremity [R20.2]/ Referred by: Fernie Clark DO Referred to: Please schedule patient in the next available appointment with provider. Patient returned call and patient was scheduled for next available EMG in [place]. Patient was placed on waitlist. Appointment: 12/15/2024 at 12:30pm with Dr. Urbano documented in this encounter [facility] 09-10-2024 Telephone encounter Note NEW EMG/NCV ORDER First attempt- Left Voicemail Dx: Paresthesia of right lower extremity [R20.2]/ Referred by: Fernie Clark DO Referred to: Please schedule patient in the next available appointment with provider. [facility] 09-10-2024 Telephone encounter Note Patient returned call and patient was scheduled for next available EMG in [place]. Patient was placed on waitlist. Appointment: 12/15/2024 at 12:30pm with Dr. Urbano [facility] 09-10-2024 History of Presen t illness Narrative Pt here for 2g IV magnesium. Mg level 1.7. PIV initiated to RFA. Brisk blood return verified, and flushes with ease. Magnesium infused over 2 hours without incident. Pt tolerated well. Flushed with saline and PIV dc'd. Pt dc'd in stable ambulatory condition. documented in this encounter [facility] 09-01-2024 History of Presen t illness Narrative Pt magnesium level 1.8. called to notify patient to see if shed like to notify dr medina office to see if she should still get mg infusion since she's WNL. Pt requests to take the week off and recheck mg level in one week. documented in this encounter [facility] 08-27-2024 History of Presen t illness Narrative Patient is here for 2g IV magnesium as scheduled. Mg level 1.6. PIV initiated, blood return noted, flushes with ease. NS started at KVO. Magnesium infused over 2 hours. Line flushed. Pt tolerated well. PIV dc'd, pressure dressing applied. Pt dc'd in stable ambulatory condition with spouse. documented in this encounter [facility] 08-22-2024 History of Presen t illness Narrative When was the last Refill? 05/27/24 Is this medication Historical? [place] of preferred Pharmacy? [facility] When was the last OV with provider? 05/27/24 When is the next scheduled visit? 11/27/24 documented in this encounter [facility] 08-20-2024 History of Presen t illness Narrative Pt here for 2g IV magnesium. Mg level 1.6. PIV initiated to RFA. Brisk blood return noted, flushes with ease. Magnesium infused over 2 hours. Line flushed. Pt tolerated well. PIV dc'd. Pressure dressing applied. Dc'd in stable ambulatory condition. documented in this encounter [facility] 08-13-2024 History of Presen t illness Narrative Pt here for 2g IV magnesium per pt reqeust. Mg level 1.6. PIV initiated to LFA. Brisk blood return noted, flushes with ease. NS started at KVO. Magnesium infused over 2 hours. Pt tolerated well. PIV dc'd. Pressure dressing applied. Dc'd in stable ambulatory condition. documented in this encounter [facility] 08-06-2024 History of Presen t illness Narrative Pt here for 2g IV magnesium per pt reqeust. Mg level 1.5. PIV initiated to RFA. Brisk blood return noted, flushes with ease. NS started at KVO. Magnesium infused over 2 hours. Pt tolerated well. PIV dc'd. Pressure dressing applied. Dc'd in stable ambulatory condition. documented in this encounter [facility] 07-30-2024 History of Presen t illness Narrative Patient presents for Magnesium infusion. Mg 1.5 drawn 07/28/2024 Patient requests 2g of Magnesium today. PIV initiated, brisk blood return noted. Flushed with NS. Magnesium infusing as ordered over 2 hours. Patient tolerated infusion well. PIV discontinued, gauze secured with coban in place. Discharged in stable condition. documented in this encounter [facility] 07-23-2024 History of Presen t illness Narrative Patient presents for Magnesium infusion. Mg 1.6 drawn 07/21/2024 Patient will received 2g of Magnesium today per orders. PIV initiated, brisk blood return noted. Flushed with NS. Magnesium infusing as ordered over 2 hours. Patient tolerated infusion well. PIV discontinued, gauze secured with coban in place. Discharged in stable condition. documented in this encounter [facility] 07-16-2024 History of Presen t illness Narrative Pt here for 4gm IV magnesium for mg level 1.5. PIV initiated to RFA. Brisk blood return noted, flushes with ease. NS started at KVO. 4g IV magnesium infused over 4 hours without incident. Line flushed. PIV removed, pressure dressing applied. Dc'd in stable ambulatory condition. documented in this encounter [facility] 07-09-2024 History of Presen t illness Narrative Pt here for 2gm IV magnesium for mg level 1.6. PIV initiated to RFA. Brisk blood return noted, flushes with ease. NS started at KVO. 2g IV magnesium infused over 2 hours without incident. Line flushed. PIV removed, pressure dressing applied. Dc'd in stable ambulatory condition. documented in this encounter [facility] 07-02-2024 History of Presen t illness Narrative Pt here for 2gm IV magnesium for mg level 1.6. PIV initiated to RFA. Brisk blood return noted, flushes with ease. NS started at KVO. 2g IV magnesium infused over 2 hours without incident. Line flushed. PIV removed, pressure dressing applied. Dc'd in stable ambulatory condition. documented in this encounter [facility] 06-25-2024 History of Presen t illness Narrative Pt here for 2gm IV magnesium for mg level 1.7. PIV initiated to RFA. Brisk blood return noted, flushes with ease. NS started at KVO. 2g IV magnesium infused over 2 hours without incident. Line flushed. PIV removed, pressure dressing applied. Dc'd in stable ambulatory condition. documented in this encounter [facility] 06-18-2024 History of Presen t illness Narrative Patient is here for 2g IV magnesium as scheduled. Mg level 1.7. PIV initiated, blood return noted, flushes with ease. NS started at KVO. Magnesium infused over 2 hours. Line flushed. Pt tolerated well. PIV dc'd, pressure dressing applied. Pt dc'd in stable ambulatory condition with spouse. documented in this encounter [facility] 06-11-2024 History of Presen t illness Narrative [...] condition with spouse. documented in this encounter [facility] 05-29-2024 Miscellaneous Notes ----- Message from Dr. [...] mg Patient notified documented in this encounter [facility] 05-29-2024 Telephone encounter Note ----- Message from [...] bring us a new sample for testing. [facility] 05-29-2024 Telephone encounter Note Adore will come in tomorrow to provide a repeat urine sample in office. She also was wondering about her low dose asprin. She had discontinued it about 1.5 months ago due to frequent nose bleeds. The nose bleeds are gone and wonders if she should start her asprin again. [facility] 05-29-2024 Telephone encounter Note Okay great! Yes she can restart aspirin 81 mg [facility] 05-29-2024 Telephone encounter Note Patient notified [facility] 05-28-2024 History of Presen t illness Narrative Patient presents for Magnesium infusion. Mg 1.6 drawn 05/26/2024 Patient will received 2g of Magnesium today per orders. PIV initiated, brisk blood return noted. Flushed with NS. Magnesium infusing as ordered over 2 hours. Patient tolerated infusion well. PIV discontinued, gauze secured with coban in place. Discharged in stable condition. documented in this encounter [facility] 05-27-2024 History of Presen t illness Narrative Subjective Patient ID: Adore Wolff is a 83 y.o. female. Adore presents today for diabetic recheck. She is taking her medications and not having any side effects. She has had it upper respiratory infection for a couple weeks it is better but she still has a nagging cough. She tried [id number] cough medicine but it made it worse. [...] Exam Vitals reviewed. Exam conducted with a sliver lap machine tender present (Ifeanyi Johnson MS III). Constitutional: General: [...] stage 4 chronic kidney disease and hypertension ([facility]) - POCT Hemoglobin A1c - POCT urinalysis dipstick only A1c wsa 7.1% Continue current regimen Dysuria - Urine culture (clean catch); Future Urine was abnormal so will check C&S. Acute rhinitis Will treat with loratadine 10 mg daily Morbid obesity ([facility]) She is morbidly obese. She would benefit from wt loss. Incontinence of feces with fecal urgency Recommended to stop reglan and try fiber supplement to give more bulk to stool.. Other orders - loratadine (CLARITIN) 10 mg tablet; Take 1 tablet (10 mg total) by mouth daily as needed for allergies. documented [facility] this [facility] 05-21-2024 History of Presen t illness Narrative Pt here for 2g IV magnesium for mg level of 1.7. PIV initiated to RFA. Brisk blood return noted, flushes with ease. NS started at KVO. Magnesium infused over 2 hours. Pt tolerated well. Line flushed. PIV dc'd. Pressure dressing applied. Dc'd in stable ambulatory condition. documented in this encounter [employer] [facility] 05-14-2024 History of Presen t illness Narrative Pt here for 2g IV magnesium for mg level 1.6. PIV initiated to RFA. Brisk blood return noted, flushes with ease. NS started at KVO. Magnesium infused over 2 hours. Pt tolerated well. PIV dc'd. Pressure dressing applied. Dc'd in stable ambulatory condition with spouse. documented in this encounter [facility] 05-07-2024 History of Presen t illness Narrative Patient is here for 4g IV magnesium as scheduled. Mg level 1.4. PIV initiated, blood return noted, flushes with ease. NS started at KVO. Magnesium infused over 2 hours. Line flushed. Pt tolerated well. PIV dc'd, pressure dressing applied. Pt dc'd in stable ambulatory condition with spouse. documented in this encounter [facility] 04-30-2024 History of Presen t illness Narrative [...] in stable condition. documented in this encounter [facility] 04-23-2024 History of Presen t illness Narrative Pt here for 4g IV magnesium for mg level of 1.4. PIV initiated to RFA. Brisk blood return noted, flushes with ease. NS started at KVO. Magnesium infused over 4 hours as ordered. Pt tolerated well. Line flushed. PIV dc'd, pressure dressing applied. Pt dc'd in stable condition. documented in this encounter [facility] 04-16-2024 History of Presen t illness Narrative Pt here for 2g IV magnesium as scheduled. Mg level 1.6. PIV initiated to RFA. Brisk blood return noted, flushes with ease. NS started at KVO. Magnesium infused over 2 hours. Pt tolerated well. PIV dc'd pressure dressing applied. Pt dc'd in stable ambulatory condition. V/u of future appointments. documented in this encounter [facility] 04-09-2024 History of Presen t illness Narrative [...] in stable condition. documented in this encounter [facility] 04-02-2024 History of Presen t illness Narrative Pt here for IV magnesium as scheduled. Mg level 1.7. PIV initiated to RFA. Blood return verified. Flushes with ease. NS started at KVO. 2g magnesium infused over 2 hours. Pt tolerated well. PIV dc'd. Pressure dressing applied. Pt dc'd in stable ambulatory condition. documented in this encounter [facility] 03-26-2024 History of Presen t illness Narrative Pt here for IV magnesium as scheduled for mg level of 1.6. PIV initiated to RFA. Brisk blood return noted, flushes with ease. NS started at KVO. Magnesium infused over 2 hours. Pt tolerated well. Line flushed. PIV dc'd- pressure dressing applied. Pt dc'd in stable ambulatory condition. documented in this encounter [facility] 03-19-2024 History of Presen t illness Narrative Pt here for IV magnesium for mg level 1.6. PIV initiated to RFA after several attempts. Brisk blood return noted, flushes with ease. NS started at KVO. Magnesium infused over 2 hours. Pt tolerated well. PIV dc'd- pressure dressing applied. Pt dc'd in stable ambulatory condition. V/u of future appts. documented [facility] this [facility]-12[facility] History of Presen t illness Narrative Pt here for Mg infusion. Mg 1.6, 2GM Mg indicated per order. PIV initiated to RFA, brisk blood return noted, flushes without difficulty. 2gm Mg infused over 2 hours, pt tolerated well. PIV discontinued, pressure dressing applied. Calendar provided, pt discharged ambulatory in stable condition. [facility] History of Presen t illness Narrative Subjective Patient ID: Adore Wolff is a 83 y.o. female. Adore presents for a rlth-xh-ghib visit to try to get pads for [...] Exam Vitals reviewed. Exam conducted with a sliver lap machine tender present (). Constitutional: Appearance: She is morbidly [...] make a referral. documented in this encounter [facility] 02-25-2024 History of Presen t illness Narrative Patient and were updated on normal magnesium level of 1.9. She is still very bruised on her arms and wishes to continue to hold infusions at this time since level is normal to allow her arms/veins time to be less bruised. She will continue to have weekly lab checks completed. documented in this encounter [facility] 02-20-2024 History of Presen t illness Narrative Received call back from Dr. Conley's office. Instructed to hold magnesium infusions at this time. Will update patient and have pt continue to have labs checked to monitor. documented in this encounter [facility] 02-19-2024 History of Presen t illness Narrative Pt magnesium level 1.9. called to notify patient and pt states her arms are still very bruised up from multiple IV attempts. Pt request to skip infusion this week to give her veins/arms a break since her mg level is wnl. Pt will recheck lab next week. documented in this encounter [facility] 02-13-2024 History of Presen t illness Narrative Pt here for 2g IV magnesium as scheduled for mg level 2.0. Tolerating infusions well. PIV initiated to LFA- after multiple attempts. Brisk blood return noted, flushes with ease. NS started at KVO. Magnesium infused over 2 hours. Pt tolerated well. PIV dc'd, pressure dressing applied. Pt dc'd in stable ambulatory condition. documented in this encounter [facility] 02-06-2024 History of Presen t illness Narrative Pt here for 2g IV magnesium as scheduled for mg level 1.8. Tolerating infusions well. PIV initiated to RFA. Brisk blood return noted, flushes with ease. NS started at KVO. Magnesium infused over 2 hours. Pt tolerated well. PIV dc'd, pressure dressing applied. Pt dc'd in stable ambulatory condition. documented in this encounter [facility] 01-30-2024 History of Presen t illness Narrative Patient is here for 2g IV magnesium as scheduled. Mg level 1.8. PIV initiated, blood return noted, flushes with ease. NS started at KVO. Magnesium infused over 2 hours. Line flushed. Pt tolerated well. PIV dc'd, pressure dressing applied. Pt dc'd in stable ambulatory condition with spouse. documented in this encounter [facility] 01-23-2024 History of Presen t illness Narrative Patient is here for 2g IV magnesium as scheduled. Mg level 1.7. PIV initiated on second attempt, blood return noted, flushes with ease. NS started at KVO. Magnesium infused over 2 hours. Line flushed. Pt tolerated well. PIV dc'd, pressure dressing applied. Pt dc'd in stable ambulatory condition with spouse. documented in this encounter [facility] 01-16-2024 History of Presen t illness Narrative [...] of upcoming appointments. documented in this encounter [facility] 01-09-2024 History of Presen t illness Narrative Pt here for 2g IV magnesium for mg level of 1.7. Tolerating infusions well. PIV initiated to RFA. Brisk blood return, flushes with ease. NS started at KVO. Magnesium infused over 2 hours. Pt tolerated well. PIV flushed and dc'd. Pressure dressing applied. Dc'd in stable condition. documented in this encounter [facility] 01-08-2024 History of Presen t illness Narrative [...] Do you have a durable power of master ship?: Yes Cognitive Screening Do you have trouble [...] year (around 01/08/2025). documented in this encounter [facility] 01-02-2024 History of Presen t illness Narrative Patient is here for 2g IV magnesium as scheduled. Mg level 1.7. PIV initiated on third attempt, blood return noted, flushes with ease. NS started at KVO. Magnesium infused over 2 hours. Line flushed. Pt tolerated well. PIV dc'd, pressure dressing applied. Pt dc'd in stable ambulatory condition with spouse. documented in this encounter [facility] 12-26-2023 History of Presen t illness Narrative Pt here for 2g IV magnesium infusion as scheduled. Mg level 1.6. Tolerating infusions well. PIV initiated to RFA. Brisk blood return noted, flushes with ease. NS started at KVO. Magnesium infused over 2 hours. Pt tolerated well. Line flushed. PIV dc'd. Pressure dressing applied. Pt v/u of future appointments. documented in this encounter [facility] 12-19-2023 History of Presen t illness Narrative Pt here for 4g IV magnesium infusion as scheduled. Mg level 1.5. Tolerating infusions well. PIV initiated to LFA. Brisk blood return noted, flushes with ease. NS started at KVO. Magnesium infused over 4 hours. Pt tolerated well. Line flushed. PIV dc'd. Pressure dressing applied. Pt v/u of future appointments. documented in this encounter [facility] 12-12-2023 History of Presen t illness Narrative Patient is here for 2g IV magnesium as scheduled. Mg level 1.7. PIV initiated blood return noted, flushes with ease. NS started at KVO. Magnesium infused over 2 hours. Line flushed. Pt tolerated well. PIV dc'd, pressure dressing applied. Pt dc'd in stable ambulatory condition with spouse. documented in this encounter [facility] 12-05-2023 History of Presen t illness Narrative Patient here for 2g IV magnesium as scheduled. Mg level 1.7. PIV initiated blood return noted, flushes with ease. NS started at KVO. Magnesium infused over 2 hours. Line flushed. Pt tolerated well. PIV dc'd, pressure dressing applied. Pt dc'd in stable ambulatory condition with spouse. documented in this encounter [facility] 12-04-2023 Miscellaneous Notes Patient called and these are both covered by insurance and she would like these sent in instead of what the alternative was documented in this encounter [facility] 12-04-2023 Telephone encounter Note Patient called and these are both covered by insurance and she would like these sent in instead of what the alternative was [facility] 11-28-2023 History of Presen t illness Narrative Patient here for 2g IV magnesium as scheduled. Mg level 1.8. PIV initiated to LFA Brisk blood return noted, flushes with ease. NS started at KVO. Magnesium infused over 2 hours. Line flushed. Pt tolerated well. PIV dc'd, pressure dressing applied. Pt dc'd in stable ambulatory condition with spouse. documented in this encounter [facility] 11-26-2023 History of Presen t illness Narrative Subjective Patient ID: Adore Wolff is a 83 y.o. female. Adore presents for recheck of multiple problems. She is currently getting a series of magnesium infusions due to critically low magnesium level. She was asymptomatic. She got her labs done today at [facility]. She has information regarding her formulary. [...] Objective Physical Exam Exam conducted with a sliver lap machine tender present (). 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) Blood pressure essentially at goal. Await CMP results. Await A1c and ACR results. Mixed hyperlipidemia Await lipid results Hypomagnesemia Managed by Nephrology. 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 Continue omeprazole. PPI can also lead to low magnesium. Morbid obesity ([facility]) She is morbidly obese. She would benefit [...] the skin nightly. documented in this encounter [facility] 11-21-2023 History of Presen t illness Narrative [...] Treatment calendar provided. documented in this encounter [facility] 11-19-2023 Note Continue statin [facility] 11-19-2023 Note Hypertension is elev ated in office today was 192/86 and repeat b/p improved 158/80 Typically b/p is 122-150/60-80 at home and at other physician offices. Continue all meds ramipril, coreg [facility] 11-19-2023 Note Coronary artery dise ase is stable Continue GDMT- ASA, lipitor, coreg continue risk factor modifications- heart healthy diet, regular exercise as tolerated and continue all medications. [facility] 11-19-2023 Note Patient here for 1 y ear follow up CAD, hypertension, and venous insufficiency. Had labs a week or so ago for signal intelligence/electronic warfare and says she's in the process of [...] All other systems reviewed and are negative. [facility] 11-19-2023 Note [facility] CARDIOLOGY PROGR ESS NOTE [...] labs a week or so ago for signal intelligence/electronic warfare and says she's in the process of [...] 2.05, BUN 64, (more content not included)... [facility] 08-23-2023 Evaluation note Encounter Date Diagnosis Assessment [...] magnesium diet and provide information about it. [facility] 03-16-2023 NoteCONSULTATION CONSULTATION DATE: 01/25/2023 HISTORY: [...] and to talk with Dr. Conley, their signal intelligence/electronic warfare, to confirm that this was acceptable, considering her stage 3 kidney disease. Other than that, we will see her in three months' time at the clinic, unless otherwise indicated. Patient and agree with this plan.[facility] 01-25-2023 Evaluation note* Encounter Date [...] magnesium diet and provide information about it. [facility] Chief Complaint: Patient being seen via telephone call for 6 mo follow up hypertension, CAD, and CKD. She denies chest pain and increased SOB with exertion. C/o increased LE edema but denies weight gain. Says her signal intelligence/electronic warfare Dr. Conley advised her to call him [...] inhibitor/receptor micki. 4. Follow up with [facility] Cardiology in the next 2 to [...] creatinine and electrolytes; she follows with her signal intelligence/electronic warfare Leg swelling is likely related to venous [...] was initiated by the patient and conducted and-xlun-rb-face with use of audio-only real time telephone communication between patient and provider for a virtual visit. Verbal consent to provide and bill for this service was obtained on 12/06/2022. No signature was obtained due to the COVID-19 pandemic. Moe Parham MD, MPH, FACC, [facility], [facility] Interventional Cardiology Pager Email: [email or web address] NoteCONSULTATION CONSULTATION DATE: 10/26/2022 HISTORY OF PRESENT ILLNESS: This is a very pleasant, 82-year-old female who presents with her for a three month follow up. Today, she reports 0/10 pain and is overall doing well. At her last appointment on 08/02/2022, we had switched her medications from [place] to tramadol extended release 100 mg per day, which she feels is helping very much. It is lasting for her better than the [place]. She is also on Lyrica 75 mg [...] indicated, and patient agrees with this plan.[id number] NoteCONSULTATION CONSULTATION DATE: 08/02/2022 HISTORY OF PRESENT ILLNESS: This is a pleasant, 81-year-old female, accompanied by her , returning to the clinic for a three month follow up for chronic lower back pain. She was last seen on 04/25/[address] Stern which, at that time, her [place] was decreased to 5/325 daily p.r.n., which [...] increased to 100 mg extended release daily. [place] will be discontinued. Education was given regarding use of the menthol heat rub with Voltaren gel and heat application to her back. Vitamin and nutrition importance was discussed. Patient will be seen back in the clinic in three months' time, unless otherwise indicated, and patient agrees to this.[id number] Evaluation note* Encounter Date Diagnosis Assessment Notes [...] any recent gout flare. She takes allopurinol. [facility] Other 06-22-2022 Evaluation note* Encounter Date Diagnosis Assessment Notes Treatment Notes Treatment Clinical Notes Apr, Hypertensive chronic kidney disease with stage 1 through stage 4 chronic kidney disease, or unspecified chronic kidney disease (ICD-10 - I12.9) [place] [employer] Other 06-14-2022 NoteCONSULTATION CONSULTATION DATE: 04/25/2022 CHIEF [...] 4/10. She is managing the pain with [place] 5/325 one table daily and tramadol 50 [...] the patient's pain medication which would be [place] 5/325 one tablet daily and tramadol 50 [...] she need us. CC: Fernie Clark D.O. [facility] Signed and Approved by: DR LUISA STERN . 05/02/2022 08:52:00[facility]05-26-2022 Evaluation note* Encounter Date Diagnosis Assessment [...] any recent gout flare. She takes allopurinol. [facility] Other 05-19-2022 NoteCONSULTATION CONSULTATION DATE: 03/30/2022 This [...] She was given a 14-day prescription of [place] 5/325 b.i.d. to help with the acuity of her post-procedure pain. Today she reports the [place] is gone and she is back on [...] and rather we will maintain her on [place] 5/325 b.i.d. which proved to be the [...] and Approved by: JONNY CAMPUZANO . 04/03/2022 15:07:00[facility]02-15-2022 Evaluation note* Encounter Date Diagnosis Assessment [...] any recent gout flare. She takes allopurinol. [place] [employer] Other Evaluvydsv noteNo InformationNortHaven [facility] [employer] Other evaluhjaau noteNo assessment information available [facility] Work Phone: [email or web address] note* Diagnosis Onset Date Resolution Status Anemia of renal disease acut e CKD (chronic kidney disease) stage 3, GFR 30-59 ml/min acute [id number] acute Hyperuricemia acute Hypomagnesemia acute Secondary hyperparathyroidism acute Type 2 diabetes mellitus wit h diabetic chronic kidney disease acute [facility] Work Phone: [email or web address] note* Diagnosis Hypomagnesemia- Primary Disorders of magnesium metabolism documented in this encounter [facility] [facility]* Diagnosis Hypomagnesemia- Primary Disorders of magnesium metabolism documented in this encounter [facility]* Diagnosis 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 ([facility] Primary Morbid obesity ([facility]) Morbid obesity documented in this encounter [facility]* Diagnosis 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 ([facility] Primary Morbid obesity ([facility]) Morbid obesity [facility] Diagnosis Lumbar stenosis with neurogenic claudication- Primary [facility] Diagnosis Lumbar stenosis with neurogenic claudication [facility]* Diagnosis Hypomagnesemia- Primary Disorders of magnesium metabolism documented in this encounter [facility] note* Diagnosis Hypomagnesemia- Primary Disorders of magnesium metabolism documented in this encounter [facility]* Diagnosis Hypomagnesemia- Primary Disorders of magnesium metabolism documented in this encounter [facility]* Diagnosis Mixed hyperlipidemia- Primary Type 2 diabetes mellitus with stage 3b chronic kidney disease, with long-term current use of insulin ([facility]) Essential hypertension Unspecified essential hypertension documented in this encounter [facility] note* Diagnosis Hypomagnesemia- Primary Disorders of magnesium metabolism documented in this encounter [facility]* Diagnosis 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 ([facility])- Primary Mixed hyperlipidemia Hypomagnesemia 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 Morbid obesity ([facility]) Morbid obesity Chronic obstructive pulmonary disease, unspecified COPD type ([facility]) documented in this encounter [facility]* Diagnosis Hypomagnesemia- Primary Disorders of magnesium metabolism documented in this encounter [facility]* Diagnosis Hypomagnesemia- Primary Disorders of magnesium metabolism documented in this encounter [facility]* Diagnosis Hypomagnesemia- Primary Disorders of magnesium metabolism documented in this encounter [facility]* Diagnosis Hypomagnesemia- Primary Disorders of magnesium metabolism documented in this encounter [facility]* Diagnosis Hypomagnesemia- Primary Disorders of magnesium metabolism documented in this encounter [facility]* Diagnosis Acute cystitis with hematuria- Primary Essential hypertension Unspecified essential hypertension Acute right-sided low back pain without sciatica Nausea Nausea alone Anxiety Anxiety state, unspecified documented in this encounter [facility] note* Diagnosis Medicare annual wellness visit, subsequent- Primary Screening for depression documented in this encounter [facility]* Diagnosis Constipation, unspecified constipation type- Primary Essential hypertension Unspecified essential hypertension Dysuria History of UTI History of sepsis Personal history of other infectious and parasitic disease Chronic low back pain without sciatica, unspecified back pain laterality documented in this encounter [facility]* Diagnosis 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)- Primary Dysuria Acute rhinitis Acute nasopharyngitis (common cold) Morbid obesity ([facility]) Morbid obesity Incontinence of feces with fecal urgency documented in this encounter [facility]* Diagnosis 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 ([facility])- Primary documented in this encounter [facility] note* Diagnosis Hypomagnesemia- Primary Disorders of magnesium metabolism documented in this encounter [facility]* Diagnosis Hypomagnesemia- Primary Disorders of magnesium metabolism documented in this encounter [facility]* Diagnosis Hypomagnesemia- Primary Disorders of magnesium metabolism documented in this encounter [facility]* Diagnosis Urinary incontinence, unspecified type- Primary Abnormality of gait and mobility documented in this encounter [facility]* Diagnosis Hypomagnesemia- Primary Disorders of magnesium metabolism documented in this encounter [facility]* Diagnosis Hypomagnesemia- Primary Disorders of magnesium metabolism documented in this encounter [facility]* Diagnosis 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) Morbid obesity documented in this encounter [facility]* Diagnosis Paresthesia of right lower extremity- Primary Ross's esophagus with dysplasia documented in this encounter [facility]* Diagnosis Hypomagnesemia- Primary Disorders of magnesium metabolism documented in this encounter [facility]* Diagnosis Lumbar stenosis with neurogenic claudication documented in this encounter [facility]* Diagnosis Lumbar stenosis with neurogenic claudication [facility] - [facility]* Type Description Date [...] IN LOWER BACK Hospitalization History see above [facility] Other History general Narrative - Reported* Type [...] HEART CATH 03/30/2021 Hospitalization History see above [facility] Other History general Narrative - Reported* Type [...] IN LOWER BACK Hospitalization History see above [facility] Other InstructionsNot on filedocumented in this encounter [...] [facility] Summary Purpose Family History No Family History Records Found Relationship Condition Age at Onset Recorded Date/T fam father Unknown family member Unknown Not Specified Diabetes mellitus Unknown Heart disease Unknown Unknown sister Heart disease Unknown Relationship Condition Age at Onset Recorded Date/T fam father Unknown family member Unknown mother Diabetes mellitus Unknown Heart disease Unknown Unknown sister Heart disease Unknown Advance Directives No Advanced Directives Records Found Advance Directive Response Recorded Date/ Time Advance Directives No December 14, 2023 12:48pm Advance Directive Response Recorded Date/ Time Advance Directives No December 14, 2023 11:48am Chief Complaint and Reason for Visit Chief Complaint hypomagnesemia Chief Complaint RENAL 6 month f/u Reason for Visit Anemia of renal dise ase CKD (chronic kidney disease) stage 3, GFR 30-59 ml/min [id number] Hyperuricemia Hypomagnesemia Secondary hyperparathyroidism Type 2 diabetes mellitus with diabetic chronic kidney disease Chief Complaint Admit Date Unknown November 20, 2024 4: 20am Chief Complaint Admit Date Unknown November 20, 2024 4: 20am Unknown January 03, 2025 11:10pm Additional Source Comments INFORMATION SOURCE (unrecogn ized section and content) DATE CREATED AUTHOR 04/06/2021 [facility] DATE CREATED AUTHOR AUTHOR'S ORGANIZ ATION 05/12/2022 [facility] DATE CREATED AUTHOR AUTHOR'S ORGANIZ ATION 03/15/2023 [facility] DATE CREATED AUTHOR AUTHOR'S ORGANIZ ATION 11/19/2023 [facility] DATE CREATED AUTHOR AUTHOR'S ORGANIZ ATION 06/03/2024 [facility] DATE CREATED AUTHOR AUTHOR'S ORGANIZ ATION 11/07/2024 [facility] DATE CREATED AUTHOR AUTHOR'S ORGANIZ ATION 11/23/2024 [facility] DATE CREATED AUTHOR AUTHOR'S ORGANIZ ATION 01/05/2025 [facility] DATE CREATED AUTHOR AUTHOR'S ORGANIZ ATION 01/05/2025 [facility] REASON FOR VISIT (unrecogniz [...] May 01, 2024 End: May 01, 2024 Gai Conley MD Attending Provider Active Start : May 01, 2024 End: May 01, 2024 Team Status: Inactive Member Role Status Dates Fernie Clark DO Primary Care Provider Active Gia Conley MD Attending Provider Active Retail Field Merchandiser Relationship Specialty Start Date End Date Fernie Clark DO [address], [facility] [place] [address] PCP - General Family Medicine 05/09/17 Flori Mon [facility] Nurse - [employer] 06/26/24 Retail Field Merchandiser Relationship Specialty Start Date End Date Fernie Clark DO [address], [place] [address] PCP - General Family Medicine 05/09/17 Flori Mon [facility] Nurse - [employer] 06/26/24 Retail Field Merchandiser Relationship Specialty Start Date End Date Fernie Clark [address], [place] [address] PCP - General Family Medicine 05/09/17 Flori Mon [facility] Nurse - [employer] 06/26/24 Retail Field Merchandiser Relationship Specialty Start Date End Date Tracyangel luisFernie [address], [place] [address] PCP - General Family Medicine 05/09/17 Flori Mon [facility] Nurse - [employer] 06/26/24 Retail Field Merchandiser Relationship Specialty Start Date End Date Tracyangel luisFernie [address], [place] [address] PCP - General Family Medicine 05/09/17 Flori Elieser [facility] Nurse - [employer] 06/26/24 Retail Field Merchandiser Relationship Specialty Start Date End Date SubhapoornimaFernie [address], [place] [address] PCP - General Family Medicine 05/09/17 Clari Costa [facility] Nurse - [employer] 11/17/24 Retail Field Merchandiser Relationship Specialty Start Date End Date SubhapoornimaFernie [address], [place] [address] PCP - General Family Medicine 05/09/17 Clari Costa [facility] Nurse - [employer] 11/17/24 Retail Field Merchandiser Relationship Specialty Start Date End Date Fernie Clark DO [address], [place] [address] PCP - General Family Medicine 05/09/17 Clari Alandro [facility] Nurse - [employer] 11/17/24 Retail Field Merchandiser Relationship Specialty Start Date End Date Fernie Clark DO [address], [place] [address] PCP - General Family Medicine 05/09/17 [facility] Nurse - [employer] 11/17/24 Retail Field Merchandiser Relationship Specialty Start Date End Date Fernie Clark DO [address], [place] [address] PCP - General Family Medicine 05/09/17 Clari Alasandro [facility] Nurse - [employer] 11/17/24 Retail Field Merchandiser Relationship Specialty Start Date End Date Fernie Clark DO [address], [place] [address] PCP - General Family Medicine 05/09/17 Retail Field Merchandiser Relationship Specialty Start Date End Date Fernie Clark DO [address] [place] [address] PCP - General Family Medicine 05/09/17 Retail Field Merchandiser Relationship Specialty Start Date End Date Fernie Clark DO [address] [place] [address] PCP - General Family Medicine 05/09/17 Retail Field Merchandiser Relationship Specialty Start Date End Date Fernie Clark DO [address] [place] [address] PCP - General Family Medicine 05/09/17 Retail Field Merchandiser Relationship Specialty Start Date End Date TracymonicaFernie noguera DO [address] [place] [address] PCP - General Family Medicine 05/09/17 Retail Field Merchandiser Relationship Specialty Start Date End Date Fernie Clark DO [address] [place] [address] PCP - General Family Medicine 05/09/17 Retail Field Merchandiser Relationship Specialty Start Date End Date Fernie Clark DO [address] [place] [address] PCP - General Family Medicine 05/09/17 Retail Field Merchandiser Relationship Specialty Start Date End Date Fernie Clark DO [address] [place] [address] PCP - General Family Medicine 05/09/17 Retail Field Merchandiser Relationship Specialty Start Date End Date TracymonicaFernie noguera DO [address] [place] [address] PCP - General Family Medicine 05/09/17 Retail Field Merchandiser Relationship Specialty Start Date End Date TracymonicaFernie noguera DO [address] [place] [address] PCP - General Family Medicine 05/09/17 Retail Field Merchandiser Relationship Specialty Start Date End Date Fernie Clark DO [address], [place] [address] PCP - General Family Medicine 05/09/17 Retail Field Merchandiser Relationship Specialty Start Date End Date Fernie Clark DO [address], [place] [address] PCP - General Family Medicine 05/09/17 Jeni Coronel [facility] Nurse [employer] 04/23/24 Retail Field Merchandiser Relationship Specialty Start Date End Date TracymonicaFernie noguera DO [address], [place] [address] PCP - General Family Medicine 05/09/17 Retail Field Merchandiser Relationship Specialty Start Date End Date TracymonicaFernie noguera DO [address], [place] [address] PCP - General Family Medicine 05/09/17 Retail Field Merchandiser Relationship Specialty Start Date End Date Fernie Clark DO [address], [place] [address] PCP - General Family Medicine 05/09/17 Jeni Coronel [facility] Nurse - [employer] 04/23/24 Retail Field Merchandiser Relationship Specialty Start Date End Date Fernie Clark DO [address], [place] [address] PCP - General Family Medicine 05/09/17 Jeni Coronel [facility] Nurse - [employer] 04/23/24 Retail Field Merchandiser Relationship Specialty Start Date End Date Fernie Clark [address], [place] [address] PCP - General Family Medicine 05/09/17 Jeni Coronel [facility] Nurse - [employer] 04/23/24 Retail Field Merchandiser Relationship Specialty Start Date End Date Fernie Clark [address], [place] [address] PCP - General Family Medicine 05/09/17 Retail Field Merchandiser Relationship Specialty Start Date End Date Fernie Clark [address], [place] [address] PCP - General Family Medicine 05/09/17 Clari Costa [facility] Nurse - [employer] 11/17/24 Retail Field Merchandiser Relationship Specialty Start Date End Date Fernie Clark [address], [place] [address] PCP - General Family Medicine 05/09/17 Clari Costa [facility] Nurse - [employer] 11/17/24 Retail Field Merchandiser Relationship Specialty Start Date End Date Fernie Clark [address], [place] [address] PCP - General Family Medicine 05/09/17 Jeni Coronel [facility] Nurse - [employer] 04/23/24 Retail Field Merchandiser Relationship Specialty Start Date End Date Fernie Clark [address], [place] [address] PCP - General Family Medicine 05/09/17 Jeni Coronel [facility] Nurse - [employer] 04/23/24 Retail Field Merchandiser Relationship Specialty Start Date End Date AmberFernieDO [address], [place] [address] PCP - General Family Medicine 05/09/17 Jeni Coronel [facility] Nurse - [employer] 04/23/24 Retail Field Merchandiser Relationship Specialty Start Date End Date Amber Fernie GDO [address], [place] [address] PCP - General Family Medicine 05/09/17 Jeni Coronel [facility] Nurse - [employer] 04/23/24 Retail Field Merchandiser Relationship Specialty Start Date End Date Fernie Clark JamarcusDO [address], [place] [address] PCP - General Family Medicine 05/09/17 Jeni Coronel [facility] Nurse - [employer] 04/23/24 Retail Field Merchandiser Relationship Specialty Start Date End Date Fernie Clark DO [address], [place] [address] PCP - General Family Medicine 05/09/17 Retail Field Merchandiser Relationship Specialty Start Date End Date Amber Fernie Ricketts DO [address], [place] [address] PCP - General Family Medicine 05/09/17 Jeni Coronel [facility] Nurse - [employer] 04/23/24 Retail Field Merchandiser Relationship Specialty Start Date End Date TracymonicaFernie noguera [address], [place] [address] PCP - General Family Medicine 05/09/17 Retail Field Merchandiser Relationship Specialty Start Date End Date AmberFernie [address], [place] [address] PCP - General Family Medicine 05/09/17 Flori Mon [facility] Nurse - [employer] 06/26/24 Retail Field Merchandiser Relationship Specialty Start Date End Date AmberFernieDO [address], [place] [address] PCP - General Family Medicine 05/09/17 Flori Mon [facility] Nurse - [employer] 06/26/24 Retail Field Merchandiser Relationship Specialty Start Date End Date Tracyangel luisFernie [address] [place] [address] [address] [place] [address] PCP - General Family Medicine 05/09/17 Flori Mon [facility] Nurse - [employer] 06/26/24 Retail Field Merchandiser Relationship Specialty Start Date End Date AmberFernieDO [address], [place] [address] PCP - General Family Medicine 05/09/17 Flori Mon [facility] Nurse - [employer] 06/26/24 Retail Field Merchandiser Relationship Specialty Start Date End Date Fernie Clrak DO [address], [place] [address] PCP - General Family Medicine 05/09/17 Flori Mon [facility] Nurse - [employer] 06/26/24 Retail Field Merchandiser Relationship Specialty Start Date End Date Fernie Clark DO [address], [place] [address] PCP - General Family Medicine 05/09/17 Flori Mon [facility] Nurse - [employer] 06/26/24 Retail Field Merchandiser Relationship Specialty Start Date End Date Fernie Clark DO [address], [place] [address] PCP - General Family Medicine 05/09/17 Flori Mon [facility] Nurse - [employer] 06/26/24 Retail Field Merchandiser Relationship Specialty Start Date End Date Fernie Clark DO [address], [place] [address] PCP - General Family Medicine 05/09/17 Flori Mon [facility] Nurse - [employer] 06/26/24 Retail Field Merchandiser Relationship Specialty Start Date End Date Fernie Clark DO [address], [place] [address] PCP - General Family Medicine 05/09/17 Flori Mon [facility] Nurse - [employer] 06/26/24 Retail Field Merchandiser Relationship Specialty Start Date End Date Fernie Clark DO [address], [place] [address] PCP - General Family Medicine 05/09/17 Flori Mon [facility] Nurse - [facility] 06/26/24 Team Status: Active Member Role Status Dates Fernie Tracyangel luis , DO Primary Care Provider Active Start: November 20, 2024 Yobany Lindsey , DO Attending Provider Active Sta rt: November 20, 2024 Team Status: Active Member Role Status Dates Fernie Clark , DO Primary Care Provider Active Start: November 24, 2024 End: November 28, 2024 Yobany Lindsey , DO Attending Provider Active Sta rt: November 24, 2024 End: November 28, 2024 Team Status: Active Member Role Status Dates Fernie Clark , DO Primary Care Provider Active Start: December 02, 2024 Yobany Lindsey , DO Attending Provider Active Sta rt: December 02, 2024 Team Status: Active Member Role Status Dates Fernie Clark , DO Primary Care Provider Active Start: December 07, 2024 End: December 09, 2024 Yobany Lindsey , DO Attending Provider Active Sta rt: December 07, 2024 End: December 09, 2024 Gilberto Curtis MD Referring Provider Active Sta rt: December 07, 2024 End: December 09, 2024 Team Status: Inactive Member Role Status Dates Fernie Tracyangel luis , DO Primary Care Provider Active Start: January 03, 2025 End: January 03, 2025 León Nina DO Attending Provider Active Start : January 03, 2025 End: January 03, 2025 Goals (unrecognized section and content) Goals may [...] BE BASED ON THE PRIMARY CLINICAL RECORDS. [facility] [employer] [facility]. provides no warranty or guarantee of the accuracy or completeness of information in this document.
--- NOTE | 2025-01-07 20:22 | PC.NURSE ---
this patient complains of upper chest pain that radiates to her upper back onset a couple hours ago while lying in bed. this patient is 9/10 and sharp, this patient add she had this chest pain before. this patient voices no other complaints and shows no signs of distress
--- NOTE | 2025-01-07 20:34 | ED.CHESTPAI1 ---
HPI - Chest Pain General Chief Complaint: Chest Pain Stated Complaint: CHEST PAINS Time Seen by Provider: 01/07/25 20:07 Source: patient Mode of arrival: ambulance History of Present Illness HPI narrative: 84-year-old female to the emergency department with chief complaint of pain. Patient reports that she has a sharp pain between her shoulder blades up by her neck that radiates down into her bilateral shoulders and into her chest. Patient reports that the pain began shortly before dinner this evening. She reports that she has had this pain several times before. She reports that she was recently admitted for this pain and was told that it was not her heart. She reports that the pain is sharp, currently rates it a 7/10. She denies any diaphoresis, shortness of breath, fever, sweats, chills, cough. She denies any abdominal pain, nausea, vomiting, diarrhea. Patient reports that she formerly followed with cardiology. She reports that she has had stress test in the past that were negative but cannot remember when the last one was. CODE STATUS: DNR CCA Past medical history: Diabetes mellitus type 2, chronic kidney disease, COPD, obesity, GERD, hyperlipidemia Related Data Home Medications ?Medication ?Instructions ?Recorded ?Confirmed aspirin 81 mg tablet,delayed 81 mg PO DAILY 04/26/23 01/03/25 release atorvastatin 80 mg tablet 80 mg PO DAILY 04/26/23 01/03/25 insulin lispro 100 unit/mL 6 unit subcut BIDWM 04/26/23 01/03/25 subcutaneous pen theophylline 400 mg 400 mg PO .QHS 04/26/23 01/03/25 tablet,extended release 24 hr fluticasone furoate 200 1 inh inhalation Q24H 11/24/24 01/03/25 mcg-vilanterol 25 mcg/dose inhalation powder (Breo Ellipta) insulin glargine 100 unit/mL (3 46 unit subcut .qhs 11/24/24 01/03/25 mL) subcutaneous pen (Lantus Solostar U-100 Insulin) montelukast 10 mg tablet 10 mg PO .QHS 11/24/24 01/03/25 pregabalin 75 mg capsule (Lyrica) 75 mg PO DAILY 11/24/24 01/03/25 acetaminophen 500 mg tablet 1,000 mg PO .q8hr PRN pain 01/02/25 01/03/25 albuterol 90 mcg/actuation aerosol 90 mcg inhalation Q4H PRN sob 01/02/25 01/03/25 inhaler artificial 2 drp ophthalmic (eye) TID PRN dry 01/02/25 01/03/25 tears(hlauxac-pyoaojyd-bixadbu) eye(s) 0.1 %-0.3 %-0.2 % eye drops (GenTeal Tears Moderate) carvedilol 12.5 mg tablet 25 mg PO BID 01/02/25 01/03/25 hydroxyzine HCl 25 mg tablet 25 mg PO QID PRN itching 01/02/25 01/03/25 lisinopril 40 mg tablet 40 mg PO DAILY 01/02/25 01/03/25 loratadine 10 mg tablet 10 mg PO DAILY 01/02/25 01/03/25 ondansetron 4 mg disintegrating 4 mg PO Q6H PRN nausea and vomiting 01/02/25 01/03/25 tablet sennosides 8.6 mg tablet 8.6 mg PO BID 01/02/25 01/03/25 (Black-Draught Lax-Senna) allopurinol 100 mg tablet 200 mg PO .QD 01/04/25 01/04/25 Previous Rx's ?Medication ?Instructions ?Recorded food supplemt, lactose-reduced 1 ea PO BID #5,688 mL 12/09/24 (Ensure Active Protein-Muscle oral liquid) pantoprazole 40 mg tablet,delayed 40 mg PO DAILY #30 tabs 12/09/24 release (Protonix) baclofen 10 mg tablet 10 mg PO TID #0 tabs 01/02/25 cephalexin 250 mg capsule 250 mg PO Q12H 7 days #14 caps 01/06/25 prednisone 20 mg tablet 20 mg PO BID 7 days #14 tabs 01/06/25 Allergies Allergy/AdvReac Type Severity Reaction Status Date / Time adhesive tape Allergy Unknown rash Verified 01/02/25 07:16 povidone-iodine (From Allergy Unknown Rash Verified 01/02/25 07:16 Betadine) red dye Allergy Unknown Rash Verified 01/02/25 07:16 Sulfa (Sulfonamide Allergy Unknown Rash Verified 01/02/25 07:16 Antibiotics) tetracycline Allergy Unknown Rash Verified 01/02/25 07:16 Review of Systems ROS Status of ROS 10 or more systems reviewed and unremarkable except as noted in history and below [facility] Medical History Generalized weakness ?R53.1 - Weakness (ICD-10) Altered mental status ?R41.82 - Altered mental status, unspecified (ICD-10) Acute kidney failure ?N17.9 - Acute kidney failure, unspecified (ICD-10) HLD (hyperlipidemia) ?E78.5 - Hyperlipidemia, unspecified (ICD-10) CKD stage 3b, GFR 30-44 ml/min ?N18.32 - Chronic kidney disease, stage 3b (ICD-10) Constipation due to opioid therapy ?K59.03 - Drug induced constipation (ICD-10) ?T40.2X5A - Adverse effect of other opioids, initial encounter (ICD-10) Chronic use of opiate drug for therapeutic purpose ?Z79.891 - superintendent terminal (current) use of opiate analgesic (ICD-10) Lumbar stenosis with neurogenic claudication ?M48.062 - Spinal stenosis, lumbar region with neurogenic claudication (ICD-10) Diabetes ?E11.9 - Type 2 diabetes mellitus without complications (ICD-10) COPD (chronic obstructive pulmonary disease) ?J44.9 - Chronic obstructive pulmonary disease, unspecified (ICD-10) HTN (hypertension) ?I10 - Essential (primary) hypertension (ICD-10) Chronic prescription opiate use ?Z79.891 - superintendent terminal (current) use of opiate analgesic (ICD-10) Lumbar radiculopathy, chronic ?M54.16 - Radiculopathy, lumbar region (ICD-10) Complication of electrolyte disorder ?E87.8 - Other disorders of electrolyte and fluid balance, not elsewhere classified (ICD-10) Concussion ?S06.0XAA - Concussion with loss of consciousness status unknown, initial encounter (ICD-10) Bilateral knee pain ?M25.561 - Pain in right knee (ICD-10) ?M25.562 - Pain in left knee (ICD-10) Muscle spasm ?M62.838 - Other muscle spasm (ICD-10) Lumbar spondylosis ?M47.816 - Spondylosis without myelopathy or radiculopathy, lumbar region (ICD-10) Knee osteoarthritis ?M17.9 - Osteoarthritis of knee, unspecified (ICD-10) Chronic kidney disease ?N18.9 - Chronic kidney disease, unspecified (ICD-10) Acute neck pain ?M54.2 - Cervicalgia (ICD-10) Head injury due to trauma ?S09.90XA - Unspecified injury of head, initial encounter (ICD-10) Urinary tract infection ?N39.0 - Urinary tract infection, site not specified (ICD-10) GERD without esophagitis ?K21.9 - Gastro-esophageal reflux disease without esophagitis (ICD-10) Gout due to renal impairment ?M10.30 - Gout due to renal impairment, unspecified site (ICD-10) Osteoarthritis ?M19.90 - Unspecified osteoarthritis, unspecified site (ICD-10) Anemia ?D64.9 - Anemia, unspecified (ICD-10) Carpal tunnel syndrome ?G56.00 - Carpal tunnel syndrome, unspecified upper limb (ICD-10) Acid reflux ?K21.9 - Gastro-esophageal reflux disease without esophagitis (ICD-10) Cirrhosis of liver ?K74.60 - Unspecified cirrhosis of liver (ICD-10) Kidney stone ?N20.0 - Calculus of kidney (ICD-10) Kidney failure ?N19 - Unspecified kidney failure (ICD-10) Asthma ?J45.909 - Unspecified asthma, uncomplicated (ICD-10) High cholesterol ?E78.00 - Pure hypercholesterolemia, unspecified (ICD-10) Surgical History History of appendectomy ?Z90.49 - Acquired absence of other specified parts of digestive tract (ICD-10) History of hysterectomy ?Z90.710 - Acquired absence of both cervix and uterus (ICD-10) History of neck surgery ?Z98.890 - Other specified postprocedural states (ICD-10) Hx of cholecystectomy ?Z90.49 - Acquired absence of other specified parts of digestive tract (ICD-10) History of lumbar laminectomy ?Z98.890 - Other specified postprocedural states (ICD-10) History of cardiac cath ?Z98.890 - Other specified postprocedural states (ICD-10) Family History Father Family history of CHF (congestive heart failure) Family history of COPD (chronic obstructive pulmonary disease) Family history of cancer Family history of diabetes mellitus Family history of hypertension Mother Family history of diabetes mellitus Family history of hypertension Family history of myocardial infarction Sister Family history of myocardial infarction Social History Within the past year, how often did you have a drink containing alcohol: never Score interpretation: A score less than 3 is consistent with normal alcohol consumption. Smoking status: Never smoker Non-prescribed substance use: denies use Previous occupational history: retired Highest level of school completed/degree received: don't know Are you now , , , , never or living with a partner: Little interest or pleasure in doing things: not at all Feeling down, depressed, or hopeless: not at all Do you think of yourself as: straight/heterosexual Gender Identity: female Exam Narrative Exam Narrative: VITALS: I have reviewed the triage vital signs. GENERAL: Morbidly obese adult female lying in exam cot NEURO: Alert and oriented. Moves all extremities. Face is symmetric and expressive. EYES: PERRL. No scleral icterus or conjunctival injection. No discharge. HENT: Normocephalic, atraumatic. Hearing is grossly intact. Nares grossly patent and without discharge. Mucous membranes moist. NECK: No JVD. Patient moves neck without restriction. CARDIO: Rhythm regular. Normal rate. No murmur, rub, or gallop. Pulses equal bilaterally in the upper and lower extremity. No lower extremity edema. PULM: Lungs clear to auscultation in all valentin. No wheezes, rales, or rhonchi. No conversational dyspnea. No splinting, stridor, or accessory muscle use. GI/: Abdomen is soft and non-tender. Normoactive bowel sounds. EXTREMITIES: Symmetric muscle bulk. No joint swelling. No clubbing, cyanosis, or deformity. SKIN: Warm and dry. Normal turgor. No rash or lesions appreciated. PSYCH: Mood, affect, and interaction is appropriate to the setting. Constitutional Vital Signs, click to edit/add: Last Vital Signs Temp 98.8 F 01/07/25 23:37 Pulse 56 L 01/07/25 23:37 Resp 20 01/07/25 23:37 BP 157/66 H 01/07/25 23:37 Pulse Ox 96 01/07/25 23:37 O2 Del Method Nasal Cannula 01/07/25 20:08 O2 Flow Rate 2 01/07/25 23:37 Course Vital Signs Vital signs: Vital Signs Temperature 98.0 F 01/07/25 20:04 Pulse Rate 70 01/07/25 20:04 Respiratory Rate 20 01/07/25 20:04 Blood Pressure 195/89 H 01/07/25 20:04 Pulse Oximetry 96 01/07/25 20:04 Oxygen Delivery Method Nasal Cannula 01/07/25 20:04 Oxygen Delivery Flow Rate 2 01/07/25 20:04 Temperature 98.8 F 01/07/25 23:37 Pulse Rate 56 L 01/07/25 23:37 Respiratory Rate 20 01/07/25 23:37 Blood Pressure 157/66 H 01/07/25 23:37 Pulse Oximetry 96 01/07/25 23:37 Oxygen Delivery Method Nasal Cannula 01/07/25 20:08 Oxygen Delivery Flow Rate 2 01/07/25 23:37 MDM - Chest Pain MDM Narrative Medical decision making narrative: 84-year-old female to the emergency department chief complaint of chest pain. Hypertensive, otherwise stable vitals. The patient is afebrile. Patient recently admitted for similar chest pain. On exam the pain is worse when he move her neck or her arms. Seems to be more musculoskeletal in etiology. Description of the pain does not sound cardiac. Cardiac workup is initiated. Morphine and Zofran for symptoms. Lab work is unremarkable. Her troponin is within normal limits x 2. Repeat EKG without any dynamic changes. Chest x-ray without acute findings. Heart score moderate risk. I discussed reassuring workup with the patient however risk is moderate. She had recent admission to the hospital for the same pain and it was thought to be noncardiac in nature. I offered the patient outpatient cardiology referral as opposed to admission this time. The patient is not comfortable with this plan. She would like to be admitted. We did also speak to the that it is questionable if the patient has capacity. He would also like the patient admitted. Case discussed with the hospitalist who agrees to admit the patient to his service. Medical Records Data Attestation: I reviewed the patient's medical records. Lab Data Attestation: I reviewed the patient's lab results. Labs: Lab Results 02/26/25 02/26/25 Range/Units 20:30 21:25 WBC 6.1 (4.0-11.0) 10^3/uL RBC 3.43 L (4.20-5.40) 10^6/uL Hgb 10.2 L (12.0-16.0) g/dL Hct 31.9 L (36.0-48.0) % MCV 93.0 (81.0-99.0) fL MCH 29.7 (26.7-34.0) pg MCHC 32.0 (29.9-35.2) g/dL RDW 14.6 (11.0-15.0) % Plt Count 234 (150-450) 10^3/uL MPV 10.5 (9.5-13.5) fL Neut % (Auto) 78.5 H (43.0-75.0) % Lymph % (Auto) 11.7 L (20.5-60.0) % Wetzel % (Auto) 8.2 (1.7-12.0) % Eos % (Auto) 0.0 L (0.9-7.0) % Baso % (Auto) 0.5 (0.2-2.0) % Neut # (Auto) 4.8 (1.4-6.5) 10^3/uL Lymph # (Auto) 0.7 L (1.2-3.8) 10^3/uL Wetzel # (Auto) 0.5 (0.3-0.8) 10^3/uL Eos # (Auto) 0.0 (0.0-0.7) 10^3/uL Baso # (Auto) 0.0 (0.0-0.1) 10^3/uL Abs Immat Gran (auto) 0.07 H (0.00-0.03) 10^3/uL Imm/Tot Granulo (auto) 1.1 H (0.0-0.5) % PT 10.9 (9.0-11.6) sec INR 1.03 APTT 24.1 (22.3-36.2) sec Sodium 141 (136-145) mmol/L Potassium 4.4 (3.5-5.1) mmol/L Chloride 103 (98-107) mmol/L Carbon Dioxide 29.9 (21.0-32.0) mmol/L Anion Gap 12.5 BUN 39.0 H (7.0-18.0) mg/dL Creatinine 1.57 H (0.55-1.02) mg/dL Est GFR ( Amer) 38 L (>=60 mL/min/1.73m^2) Est GFR (Non-Af Amer) 32 L (>=60 mL/min/1.73m^2) BUN/Creatinine Ratio 24.8 Glucose 350 H (74-106) mg/dL Calcium 9.0 (8.5-10.1) mg/dL Total Bilirubin 0.2 (0.2-1.0) mg/dL AST 20 (15-37) U/L ALT 24 (14-59) U/L Alkaline Phosphatase 99 (46-116) U/L Troponin I High Sens 27.1 27.8 (4.0-51.3) pg/mL Total Protein 5.9 L (6.4-8.2) g/dL Albumin 2.2 L (3.4-5.0) g/dL Globulin 3.7 g/dL Albumin/Globulin Ratio 0.6 Lipase 38.0 (16.0-77.0) U/L Imaging Data Chest x-ray: Attestation: I have reviewed the pertinent imaging results. Radiologist's impression: No acute process ECG Data Attestation: I personally reviewed and interpreted this ECG as follows: (Normal sinus rhythm at a rate of 70. Incomplete right bundle branch block. No STEMI. Normal QTc. Unchanged from EKG on 01/03. ) Heart Score History: Slightly/Non-Suspicious ECG: NS Repolarization Age: >65 years Risk Factors: >3 Risk Factors/ HX of CAD:2 Troponin: <Normal Limit Total Heart Score Recommendations & Risks:: 5 Discharge Plan Discharge Chief Complaint: Chest Pain Clinical Impression: Atypical chest pain Patient Disposition: Admitted as Observation Time of Disposition Decision: 00:02 Condition: Good Discharge Date/Time: 01/07/25 23:44
--- NOTE | 2025-01-07 20:38 | PC.NURSE ---
this patient awake and alert sitting upright on the bed, this patient voices if her (Anup) is here. I told her that i would check the er lobby for him. I walked out in [facility] and no Anup is here, I walked [facility] to this patient's room to tell her this. this patient voices no concerns and shows no signs of distress
[2025-01-07] MEDS: MORPHINE SULFATE 4 MG/ML VIAL IV (20:54)
[2025-01-07] MEDS: ONDANSETRON PF 4 MG/2 ML VIAL IV (20:54)
[2025-01-07 21:01] LABS: Basophils Percent Auto 0.5 % (0.2-2.0); Hematocrit 31.9 % (36.0-48.0); Hemoglobin 10.2 g/dL (12.0-16.0); Immature Granulocytes Abs Auto 0.07 10^3/uL (0.00-0.03); Immature Granulocytes Pct Auto 1.1 % (0.0-0.5); Lymphocytes Absolute Auto 0.7 10^3/uL (1.2-3.8); Lymphocytes Percent Auto 11.7 % (20.5-60.0); Mean Corpuscular Hemoglobin 29.7 pg (26.7-34.0); Mean Platelet Volume 10.5 fL (9.5-13.5); Monocytes Absolute Auto 0.5 10^3/uL (0.3-0.8); Monocytes Percent Auto 8.2 % (1.7-12.0); Neutrophils Absolute Auto 4.8 10^3/uL (1.4-6.5); Neutrophils Percent Auto 78.5 % (43.0-75.0); Platelet Count 234 10^3/uL (150-450); Red Blood Count 3.43 10^6/uL (4.20-5.40); Red Cell Distribution Width 14.6 % (11.0-15.0); White Blood Count 6.1 10^3/uL (4.0-11.0)
[2025-01-07 21:04] LABS: Alanine Aminotransferase 24 U/L (14-59); Albumin Globulin Ratio 0.6; Albumin Level 2.2 g/dL (3.4-5.0); Alkaline Phosphatase 99 U/L (46-116); Anion Gap 12.5; Aspartate Amino Transferase 20 U/L (15-37); BUN Creatinine Ratio 24.8; Bilirubin Total 0.2 mg/dL (0.2-1.0); Carbon Dioxide 29.9 mmol/L (21.0-32.0); Chloride 103 mmol/L (98-107); Estimated GFR (African America 38 (>=60 mL/min/1.73m^2); Estimated GFR (Non-African Ame 32 (>=60 mL/min/1.73m^2); Globulin 3.7 g/dL; Glucose 350 mg/dL (74-106); Potassium 4.4 mmol/L (3.5-5.1); Sodium 141 mmol/L (136-145); Total Protein 5.9 g/dL (6.4-8.2)
[2025-01-07 21:06] LABS: INR 1.03; Partial Thromboplastin Time 24.1 sec (22.3-36.2); Prothrombin Time 10.9 sec (9.0-11.6); Troponin I High Sensitivity 27.1 pg/mL (4.0-51.3)
--- NOTE | 2025-01-07 21:06 | PC.NURSE ---
i did call [facility] to find out if they called the patient's Anup, but placed on hold to long
--- NOTE | 2025-01-07 21:18 | ECG_ITS ---
[facility] Test Date: 2025-01-07 Pat Name: DAVID DUGAN Department: Room: - Gender: Female Nuclear Medicine Pet Ct Technologist: : [id number] Requested By: SHANDA CLARK Order Number: [id number] Reading MD: MONICA FALLON Measurements Intervals [place] Rate: 51 P: -[id number] MD: -[id number] QRS: -23 QRSD: 134 T: -6 QT: 468 QTc: 446 Interpretive Statements 1210 Atrial fibrillation 2450 Right bundle branch block 7202 Moderate left axis deviation 9150 abnormal ECG Compared to ECG 01/07/2025 20:06:25 Sinus rhythm no longer present Ventricular premature complex(es) no longer present Electronically Signed On 01-08-2025 6:56:34 EST by MONICA FALLON
[2025-01-07 21:50] LABS: Troponin I High Sensitivity 27.8 pg/mL (4.0-51.3)
--- NOTE | 2025-01-07 22:09 | PC.NURSE ---
[facility] did call back and said that they did call this patient's and told him her location
--- NOTE | 2025-01-07 22:54 | PC.NURSE ---
i walked into this patient's to find this patient sleeping, but she awakes when i called her name. i told her that i spoke with her and his is on his way here. this patient voices no concerns and shows no signs of distress
[2025-01-07 23:37] VITALS: BP 157/66; PULSE 56; TEMP 37.1; O2SAT 96
--- NOTE | 2025-01-07 23:43 | PC.NURSE ---
this patient's (Tom) is here and is at bedside i informed this patient her room will 216 i called the [facility] and spoke with Danica CORREA, informed her that this patient will be admitted here to this hospital and room number will be 216. this patient's is here and aware of this admission and room number
--- NOTE | 2025-01-07 23:53 | PC.NURSE ---
this patient was awake and alert lying supine on the bed, and her Tom also went upstairs with her
--- OUTSIDE RECORDS SUMMARY | 2025-01-07 23:54 | XMS_ITS | CCD ---
Author Organization [facility] Care Team Providers Care Network Systems Integrator Name Role Phone [place]TAHAWY, EHAB A Attending [...] Unavailable Furlong Fernie CAMACHO Primary Care Provider [phone] Gaetano Viera DO Attending Provider Unavailab le [...] Unavailable TAMMY, GIA Referring Unavailable FURLONG, FERNIE Ricketst Primary Care Unavailable FURLONG, FERNIE Ricketts Referring [...] Unavailable FURLONG, FERNIE G Primary Care Unavailable Gaetano Viera Admitting Unavailable Furlong, Fernie Primary Care Unavailable Gaetano Viera Attending Unavailable León Nina Attending Unavailable León Nina Admitting Unavailable Furlong, Fernie Primary Care Unavailable Allergies Allergy Classification Reported Allergen(s) Allergy Type Date of Onset Reaction(s) Facility Adhesive Tape (1 source) Adhesive Tape Substance Allergy 04-24-20 13 [facility] Repository Povidone-Iodine (1 source) Povidone-Iodine Drug Allergy 04-24-20 13 [facility] Sulfonamides (antibiotic) (1 source) Sulfonamides (Antibiotic) Drug Allergy 04-24-20 13 [facility] Rep[facility] Tetracyclines (antibiotic) (1 source) Tetracyclines Drug Allergy 04-24-20 13 [facility] Repository (20 sources) Povidone-Iodine; Translations: [POVIDONE-IODINE] Drug Allergy 11-25-19 15 [facility] Repository (10 sources) Sulfonamides (Antibiotic) Propensity to adverse reactions rash Issue Other (14 sources) Tetracycline Drug Allergy 11-16-19 24 [facility] (13 sources) Adhesive 1 x6yd Drug allergy 11-08-20 23 [facility] (13 sources) Amlodipine & Diet Manage Prod Drug allergy 11-08-20 23 [facility] (2 sources) Povidone-Iodine; Translations: [Betadine] Drug Allergy 04-23-20 13 [facility] Repository (20 sources) Contrast media; Translations: [RED DYE] Drug allergy (disorder) 05-04-20 17 [facility] Repository (5 sources) Desonide Drug Allergy 04-23-20 13 [facility] Repository (1 source) Sulfonamides (Antibiotic) Drug allergy (disorder) 04-23-20 13 [facility] Repository (1 source) Tetracycline Drug Allergy 04-23-20 13 [facility] Repository (20 sources) Adhesive agent; Translations: [ADHESIVE] Propensity to adverse reactions to drug (disorder) 11-25-19 15 Itching, Other (See Comments) [facility] Repository (20 sources) Sulfonamides (Antibiotic); Translations: [SULFA (SULFONAMIDE ANTIBIOTICS)] Propensity to adverse reactions to drug (disorder) 11-25-19 15 [facility] Repository (20 sources) Tetracyclines; Translations: [TETRACYCLINES] Propensity to adverse reactions to drug (disorder) 11-25-19 15 [facility] Repository (20 sources) dilTIAZem; Translations: [DILTIAZEM] Drug Allergy 09-01-20 [facility] Repository (20 sources) Linagliptin; Translations: [LINAGLIPTIN] Drug Allergy 09-01-20 [facility] Repository (20 sources) ADHESIVE TAPE-SILICONES; Translations: [...] as needed Orally TWICE A DAY Active [id number] 200 actuat albuterol 0.09 mg/actuat metered dose [...] morning. Active take 2 tablets by mo [facility] every twenty-four hours Allopurinol 100 [...] once daily. Active take 1 capsule by [facility] every twenty-four hours Biotin Maximum Strength 5000 MCG 1 capsule Orally Once a day Active take 1 capsule by mo ut every twenty-four hours Biotin Maximum Strength 5000 MCG 1 capsule Orally Once a day Active blood-glucose meter (TRUE METRIX GLUCOSE METER) misc (14 sources) Start: 11-18-2024 blood-glucose meter (TRUE METRIX GLUCOSE METER) [facility] 1 Unit by miscellaneous route in the [...] April 30, 2024 11:00pm Fish,Bora,Flax Oils-Om3,6,9n o1 ([place] 3-6-9) 1,200 mg capsule (3 sources) Start: 05-01-2024 Fish,Bora,Flax Oils-Om3,6,9no1 ([place] 3-6-9) 1,200 mg capsule Active CAP PO April 30, 2024 11:00pm Start: 05-01-2024 Fish,Bora,Flax Oils-Om3,6,9no1 ([place] 3-6-9) 1,200 mg capsule Active CAP PO [...] disease, with long-term current use of [place] Inject 46 Units under [...] For Her 50 + - Orally Active qmlsiciq-cqoc-SR-calcium &mi ns (THERAGRAN-M) 9 mg iron-400 mcg tablet (20 sources) kisdcstw-pnni-DI -calcium &mins (THERAGRAN-M) 9 mg iron-400 mcg tablet Take 1 tablet by mouth in the morning. Active imhbbmbs-xsio-OD -calcium &mins (THERAGRAN-M) 9 mg iron-400 mcg [...] 5 days. 20 tablet 12/10/2024 12/15/2024 Active [place] 3-6-9 Complex - (10 sources) [place] 3-6-9 Comp fawad - Orally Active omega-3 [...] Discontinued (Therapy completed) take 1 capsule by [facility] every twenty-four hours Omeprazole 20 MG 1 cap(s) Orally Once a day Active take 1 capsule by [facility] every twelve hours Omeprazole 20 MG 1 [...] disease (20 sources) Atherosclerotic heart disease of [place] coronary artery without angina pectoris; Translations: [Coronary [...] 09-01-2022 09-01-2022 Episodic Other aftercare (3 sources) 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 Normal [facility] Comment on above: Performed By: #### C UU #### [address] Urine Cultureon 11-20-2024 Bacteria identified Cx Nom (U) ORGANISM: Escherichia coli (O:ESCCOL) [place] Count >100,000 Aerobic URBAN Charge (NMIC56) -- [...] RESISTANT TO ALL B-LACTAM DRUGS. PERFORMED BY: [place] [address] PATHOLOGIST TURBO OPERATOR MARIO PUTNAM M.D. Normal [facility] Comment on above: Performed By: #### C UU #### [address] Urine cultureOrdered By: Sanket Viera on 11-20-2024 Bacteria identified Cx Nom (U) Escherichia coli Abnormal [facility] MAGNESIUMon 11-17-2024 Magnesium [Mass/Vol] 1.8 mg/dL Normal 1.8-2.6 [facility] Comment on above: Performed By: #### 1 9123-9 ####[facility] ([id number])[address] [place] [address] MAGNESIUMon 11-10-2024 Magnesium [Mass/Vol] 1.8 mg/dL Normal 1.8-2.6 [facility] Comment on above: Performed By: #### 1 9123-9 ####[facility] ([id number])[address] [place] [address] MAGNESIUMon 11-03-2024 Magnesium [Mass/Vol] 1.7 mg/dL Low 1.8-2.6 [facility] Comment on above: Performed By: #### 1 9123-9 ####[facility] ([id number])[address] [place] [address] MAGNESIUMon 10-27-2024 Magnesium [Mass/Vol] 1.8 mg/dL Normal 1.8-2.6 [facility] Comment on above: Performed By: #### 1 9123-9 ####[facility] ([id number])[address] [place] [address] MAGNESIUMon 10-20-2024 Magnesium [Mass/Vol] 1.9 mg/dL Normal 1.8-2.6 [facility] Comment on above: Performed By: #### 1 9123-9 ####[facility] ([id number])[address] [place] [address] MAGNESIUMon 10-13-2024 Magnesium [Mass/Vol] 1.8 mg/dL Normal 1.8-2.6 [facility] Comment on above: Performed By: #### 1 9123-9 ####[facility] ([id number])[address] [place] [address] MAGNESIUMon 10-06-2024 Magnesium [Mass/Vol] 1.7 mg/dL Low 1.8-2.6 [facility] Comment on above: Performed By: #### 1 9123-9 ####[facility] ([id number])[address] [place] [address] MAGNESIUMon 09-29-2024 Magnesium [Mass/Vol] 1.7 mg/dL Low 1.8-2.6 [facility] Comment on above: Performed By: #### 1 9123-9 ####[facility] ([id number])[address] [place] [address] Glucose Glucometer (BldC) [M ass/Vol]on 09-26-2024 Glucose [Mass/Vol] 154 mg/dL High 65-99 [facility] Surgical Pathologyon 024 Surgical Pathology Normal [facility] Comment on above: Result Comment: [facility] [address] [place] [address] Surgical Pathology ConsultationPatient Name:ADORE WOLFF:1940 (Age: 83)Gender:FTaken:4Reported:10/01/2024hysician(s):Daniel Guerrero MD ([phone])Copy To: Rec. #:[id number]: #[id number] Pathologic Diagnosis1. Duodenum, second portion, biopsy: Duodenal mucosa with no significant diagnostic abnormality. No evidence of celiac disease.2. Duodenum, bulb, biopsy: Ectopic gastric mucosa.3. Stomach, polypectomy: Fundic gland polyp.4. Esophagus, distal, biopsy: Junctional mucosa with no significant diagnostic abnormality. No evidence of intestinal metaplasia. Report Electronically Signed Out10/01/2024paula Coto MDInterpretation performed at [facility], [address] [place] [address], License number: [id number].Clinical History Ross's esophagus.Gross Description1. Received in formalin labeled [facility], second portion of duodenum are two light abbott soft tissue bits, 0.2 cm each. The specimen is filtered and entirely submitted in a single cassette. (1, ns, [id number],m3) DM.2. .Received in formalin labeled [facility], duodenal bulb biopsies are three light abbott soft tissue bits, 0.2 cm each. The specimen is filtered and entirely submitted in a single cassette. (1, ns, [id number],m3) DM.3. Received in formalin labeled [facility], fundic gland polyp is a light abbott soft tissue bit, 0.3 cm. The specimen is filtered and entirely submitted in a single cassette. (1, ns, [id number],m3) DM.4. Received in formalin labeled [facility], distal esophageal biopsy are three pale-abbott soft tissue bits, 0.2 cm each. The specimen is filtered and entirely submitted in a single cassette. (1, ns, [id number],m3) DM.dm/09/27/2024GRSpecimen(s) Received1: Second portion of duodenum biopsies2: Duodenal bulb biopsy3: Fundic gland polyp4: Esophageal distal biopsyFee Codes(s):1; 459853; 131604; 618148; 69394 MAGNESIUMon 09-22-2024 Magnesium [Mass/Vol] 1.8 mg/dL Normal 1.8-2.6 [facility] Comment on above: Performed By: #### 1 9123-9 ####[facility] ([id number])[address] [place] [address] MAGNESIUMon 09-15-2024 Magnesium [Mass/Vol] 1.8 mg/dL Normal 1.8-2.6 [facility] Comment on above: Performed By: #### 1 9123-9 ####[facility] ([id number])[address] [place] [address] MAGNESIUMon 09-08-2024 Magnesium [Mass/Vol] 1.7 mg/dL Low 1.8-2.6 [facility] Comment on above: Performed By: #### 1 9123-9 ####[facility] ([id number])[address] [place] [address] MAGNESIUMon 09-01-2024 Magnesium [Mass/Vol] 1.8 mg/dL Normal 1.8-2.6 [facility] Comment on above: Performed By: #### 1 9123-9 ####[facility] ([id number])[address] [place] [address] MAGNESIUMon 08-25-2024 Magnesium [Mass/Vol] 1.6 mg/dL Low 1.8-2.6 [facility] Comment on above: Performed By: #### 1 9123-9 ####[facility] ([id number])[address] [place] [address] MAGNESIUMon 08-18-2024 Magnesium [Mass/Vol] 1.6 mg/dL Low 1.8-2.6 [facility] Comment on above: Performed By: #### 1 9123-9 ####[facility] ([id number])[address] [place] [address] MAGNESIUMon 08-11-2024 Magnesium [Mass/Vol] 1.6 mg/dL Low 1.8-2.6 [facility] Comment on above: Performed By: #### 1 9123-9 ####[facility] ([id number])[address] [place] [address] MAGNESIUMon 08-04-2024 Magnesium [Mass/Vol] 1.5 mg/dL Low 1.8-2.6 [facility] Comment on above: Performed By: #### 1 9123-9 ####[facility] ([id number])[address] [place] [address] MAGNESIUMon 07-28-2024 Magnesium [Mass/Vol] 1.5 mg/dL Low 1.8-2.6 [facility] Comment on above: Performed By: #### 1 9123-9 ####[facility] ([id number])[address] [place] [address] MAGNESIUMon 07-21-2024 Magnesium [Mass/Vol] 1.6 mg/dL Low 1.8-2.6 [facility] Comment on above: Performed By: #### 1 9123-9 ####[facility] ([id number])[address] [place] [address] MAGNESIUMon 07-15-2024 Magnesium [Mass/Vol] 1.5 mg/dL Low 1.8-2.6 [facility] Comment on above: Performed By: #### 1 9123-9 ####[facility] ([id number])[address] [place] [address] MAGNESIUMon 07-07-2024 Magnesium [Mass/Vol] 1.6 mg/dL Low 1.8-2.6 [facility] Comment on above: Performed By: #### 1 9123-9 ####[facility] ([id number])[address] [place] [address] MAGNESIUMon 06-30-2024 Magnesium [Mass/Vol] 1.6 mg/dL Low 1.8-2.6 [facility] Comment on above: Performed By: #### 1 9123-9 ####[facility] ([id number])[address] [place] [address] MAGNESIUMon 06-23-2024 Magnesium [Mass/Vol] 1.7 mg/dL Low 1.8-2.6 [facility] Comment on above: Performed By: #### 1 9123-9 ####[facility] ([id number])[address] [place] [address] MAGNESIUMon 06-16-2024 Magnesium [Mass/Vol] 1.7 mg/dL Low 1.8-2.6 [facility] Comment on above: Performed By: #### 1 9123-9 ####[facility] ([id number])[address] [place] [address] MAGNESIUMon 06-09-2024 Magnesium [Mass/Vol] 1.7 mg/dL Low 1.8-2.6 [facility] Comment on above: Performed By: #### 1 9123-9 ####[facility] ([id number])[address] [place] [address] MAGNESIUMon 06-02-2024 Magnesium [Mass/Vol] 1.6 mg/dL Low 1.8-2.6 [facility] Comment on above: Performed By: #### 1 9123-9 ####[facility] ([id number])[address] [place] [address] URINE CULTUREon 05-30-2024 Bacteria identified Cx Nom [...] F TRIMETH/SULFAMETHOXAZOL E S <=/ F Susceptible [facility] Comment on above: Performed By: #### 6 30-4 #### [facility] ([id number]) [address] [place] [address], [address] [place] [address] POCT Hemoglobin A1con 2023 HbA1c (Bld) [Mass fraction] 7.1 g/dL Abnormal 4 - 7 g/dL [facility] Interpretation and review of laboratory results Abnormal [facility] POCT urinalysis dipstick onl yon 05-27-2024 Appearance (U) cloudy [facility] External Poct Urine Bilirubin Negative [facility] External Poct Urine Blood Trace [facility] External Poct Urine Color yellow [facility] External Poct Urine Glucose Negative [facility] External Poct Urine Ketones Negative [facility] External Poct Urine Leukocyte Esterase Moderate [facility] External Poct Urine Nitrite Negative [facility] External Poct Urine Ph 5.5 [facility] External Poct Urine Protein 3+ [facility] Comment on above: >=300 External Poct Urine Specific [place] 1.025 [facility] External Poct Urine Urobilinogen 0.2 [facility] URINE CULTUREon 05-27-2024 Bacteria identified Cx Nom (U) CULTURE RESULTS MULTIPLE SPECIES PRESENT. PROBABLE COLLECTION CONTAMINATION. SUGGEST REPEAT SPECIMEN. Normal [facility] Comment on above: Performed By: #### 6 30-4 #### [facility] ([id number]) [address] [facility], [address] [place] [address] MAGNESIUMon 05-26-2024 Magnesium [Mass/Vol] 1.6 mg/dL Low 1.8-2.6 [facility] Comment on above: Performed By: #### 1 9123-9 ####[facility] ([id number])[address] [place] [address] MAGNESIUMon 05-19-2024 Magnesium [Mass/Vol] 1.7 mg/dL Low 1.8-2.6 [facility] Comment on above: Performed By: #### 1 9123-9 ####[facility] ([id number])[address] [place] [address] MAGNESIUMon 05-12-2024 Magnesium [Mass/Vol] 1.6 mg/dL Low 1.8-2.6 [facility] Comment on above: Performed By: #### 1 9123-9 ####[facility] ([id number])[address] [facility], [address] [address] MAGNESIUMon 05-05-2024 Magnesium [Mass/Vol] 1.4 mg/dL Low 1.8-2.6 [facility] Comment on above: Performed By: #### 1 9123-9 ####[facility] ([id number])[address] [place] [address] MAGNESIUMon 04-28-2024 Magnesium [Mass/Vol] 1.5 mg/dL Low 1.8-2.6 [facility] Comment on above: Performed By: #### 1 9123-9 ####[facility] ([id number])[address] [place] [address] COMPLETE BLOOD COUNTon 04-21 Erythrocyte distribution width (RBC) [Ratio] 16.6 % High 11.5-15.0 [facility] Comment on above: Performed By: #### C BC, UPCR, FEPR, 67882-6, RENAL, 3084-1, 2276-4, 2731-8, 41145-4 ####[facility] ([id number])[address] [employer], [address] [place] [address] Hematocrit (Bld) [Volume fraction] 33.8 % Low 35-47 [facility] Comment on above: Performed By: #### C BC, UPCR, FEPR, 48804-5, RENAL, 3084-1, 2276-4, 2731-8, 84440-4 ####[facility] ([id number])[address] [employer], [address] [place] [address] Hemoglobin (Bld) [Mass/Vol] 11.0 g/dL Low 11.7-15.5 [facility] Comment on above: Performed By: #### C BC, UPCR, FEPR, 74302-3, RENAL, 3084-1, 2276-4, 2731-8, 50974-6 ####[facility] ([id number])[address], [address] [place] [address] MCH (RBC) [Entitic mass] 30.0 pg Normal 27-34 [facility] Comment on above: Performed By: #### C BC, UPCR, FEPR, 83002-9, RENAL, 3084-1, 2276-4, 2731-8, 34392-7 ####[facility] ([id number])[address] [employer], [address] [place] [address]68 MCHC (RBC) [Mass/Vol] 32.7 g/dL Normal 32-36 [facility] Comment on above: Performed By: #### C BC, UPCR, FEPR, 14830-7, RENAL, 3084-1, 2276-4, 2731-8, 09335-7 ####[facility] ([id number])[address] [employer], [address] [place] [address] MCV (RBC) [Entitic vol] 92 fL Normal 80-100 [facility] Comment on above: Performed By: #### C BC, UPCR, FEPR, 51135-9, RENAL, 3084-1, 2276-4, 2731-8, 39503-7 ####[facility] ([id number])[address] [employer], [address] [place] [address] Platelet mean volume (Bld) [Entitic vol] 9.5 fL Normal 7-12 [facility] Comment on above: Performed By: #### C BC, UPCR, FEPR, 73995-2, RENAL, 3084-1, 2276-4, 2731-8, 43818-2 ####[facility] ([id number])[address], [address], [place] [address] Platelets (Bld) [#/Vol] 182 10*3/uL Normal 150-450 [facility] Comment on above: Performed By: #### C BC, UPCR, FEPR, 52590-0, RENAL, 3084-1, 2276-4, 2731-8, 36516-6 ####[facility] ([id number])[address] [employer], [address] [place] [address] RBC COUNT 3.68 X10E12/L Low 3.80-5.20 [facility] Comment on above: Performed By: #### C BC, UPCR, FEPR, 09881-9, RENAL, 3084-1, 2276-4, 2731-8, 56368-0 ####[facility] ([id number])[address], [address], [place] [address] WBC (Bld) [#/Vol] 6.2 10*3/uL Normal 4.0-11.0 [facility] Comment on above: Performed By: #### C BC, UPCR, FEPR, 30128-4, RENAL, 3084-1, 2276-4, 2731-8, 81901-5 ####[facility] ([id number])[address] [place] [address] FERRITINon 04-21-2024 Ferritin [Mass/Vol] 113 ng/mL Normal 11-307 [facility] Comment on above: Performed By: #### C BC, UPCR, FEPR, 26497-7, RENAL, 3084-1, 2276-4, 2731-8, 81270-9 ####[facility] ([id number])[address] [address], [place] [address] IRON PROFILEon 04-21-2024 Iron [Mass/Vol] 56 ug/dL Normal 50-170 [facility] Comment on above: Performed By: #### C BC, UPCR, FEPR, 59315-6, RENAL, 3084-1, 2276-4, 2731-8, 20402-0 ####[facility] ([id number])[address] [address] [place] [address] IRON BINDING 307 ug/dL Normal 250-425 [facility] Comment on above: Performed By: #### C BC, UPCR, FEPR, 85815-5, RENAL, 3084-1, 2276-4, 2731-8, 72123-0 ####[facility] ([id number])[address] [facility] [place] [address] IRON SATURATION 18 % SATURATION Normal 15-50 [facility] Comment on above: Performed By: #### C BC, UPCR, FEPR, 06736-9, RENAL, 3084-1, 2276-4, 2731-8, 69254-6 ####[facility] ([id number])[address] [employer], [address] [place] [address] MAGNESIUMon 04-21-2024 Magnesium [Mass/Vol] 1.4 mg/dL Low 1.8-2.6 [facility] Comment on above: Performed By: #### C BC, UPCR, FEPR, 92566-7, RENAL, 3084-1, 2276-4, 2731-8, 31113-2 ####[facility] ([id number])[address], [address] [place] [address] PROTEIN CREAT RATIOon 2023 RANDOM URINE PROTEIN 470 mg/L High <120 [facility] Comment on above: Performed By: #### C BC, UPCR, FEPR, 38705-5, RENAL, 3084-1, 2276-4, 1-8, 23321-3 ####[facility] ([id number])[address], [place] [address] U/PRO/TECHNICAL ADMINISTRATIVE ASSISTANT RATIO CALC 0.50 High <0.2 [facility] Comment on above: Result Comment: Neph rotic Syndrome is associated with ratios >3.5 Performed By: #### C BC, UPCR, FEPR, 75817-5, RENAL, 3084-1, 2276-4, 2731-8, 17707-9 ####[facility] ([id number])[address], [address] [place] [address] URINE CREATININE,RDM 94.29 mg/dL Normal [facility] Comment on above: Performed By: #### C BC, UPCR, FEPR, 47735-1, RENAL, 3084-1, 2276-4, 2731-8, 85281-0 ####[facility] ([id number])[address] [place] [address] Parathyrin.intact [Mass/Vol] on 06-10-2024 PTH INTACT 168 pg/mL High 12-88 [facility] Comment on above: Performed By: #### C BC, UPCR, FEPR, 94402-6, RENAL, 3084-1, 2276-4, 2731-8, 99397-4 ####[facility] ([id number])[address], [address], [place] [address] RENAL PANELon 04-21-2024 Albumin [Mass/Vol] 3.7 g/dL Normal 3.2-5.3 [facility] Comment on above: Performed By: #### C BC, UPCR, FEPR, 42107-4, RENAL, 3084-1, 2276-4, 2731-8, 07860-7 ####[facility] ([id number])[address], [address], [place] [address] Anion gap [Moles/Vol] 11 mmol/L Normal 5-15 [facility] Comment on above: Performed By: #### C BC, UPCR, FEPR, 81765-4, RENAL, 3084-1, 2276-4, 2731-8, 75929-8 ####[facility] ([id number])[address], [address], [place] [address] Calcium [Mass/Vol] 8.9 mg/dL Normal 8.5-10.5 [facility] Comment on above: Performed By: #### C BC, UPCR, FEPR, 00309-3, RENAL, 3084-1, 2276-4, 2731-8, 72191-2 ####[facility] ([id number])[address], [address], [place] [address] Chloride [Moles/Vol] 106 mmol/L Normal 98-109 [facility] Comment on above: Performed By: #### C BC, UPCR, FEPR, 29924-4, RENAL, 3084-1, 2276-4, 2731-8, 20327-5 ####[facility] ([id number])[address], [address], [place] [address] CO2 [Moles/Vol] 26 mmol/L Normal 22-32 [facility] Comment on above: Performed By: #### C BC, UPCR, FEPR, 29215-4, RENAL, 3084-1, 2276-4, 2731-8, 51662-9 ####[facility] ([id number])[address], [address], [place] [address] Creatinine [Mass/Vol] 1.78 mg/dL High 0.40-1.00 [facility] Comment on above: Result Comment: METH OD TRACEABLE TO IDMS STANDARD Performed By: #### C BC, UPCR, FEPR, 48105-5, RENAL, 3084-1, 2276-4, 2731-8, 27638-5 ####[facility] ([id number])[address] [address] [place] [address] GFR/1.73 sq M.predicted among non-blacks MDRD (S/P/Bld) [Vol rate/Area] 28 mL/min/{1.73_m2} Low >59 [facility] Comment on above: Result Comment: Repo rted eGFR is based on theCKD-EPI 2020 equation that doesnot use a race coefficient. Performed By: #### C BC, UPCR, FEPR, 77668-8, RENAL, 3084-1, 2276-4, 2731-8, 19002-4 ####[facility] ([id number])[address], [address], [place] [address] Glucose [Mass/Vol] 157 mg/dL High 65-99 [facility] Comment on above: Performed By: #### C BC, UPCR, FEPR, 14484-0, RENAL, 3084-1, 2276-4, 2731-8, 08064-4 ####[facility] ([id number])[address] [address], [place] [address] Phosphate [Mass/Vol] 3.8 mg/dL Normal 2.4-4.9 [facility] Comment on above: Performed By: #### C BC, UPCR, FEPR, 01622-7, RENAL, 3084-1, 2276-4, 2731-8, 82122-8 ####[facility] ([id number])[address], [address] [place] [address] Potassium [Moles/Vol] 4.2 mmol/L Normal 3.5-5.0 [facility] Comment on above: Performed By: #### C BC, UPCR, FEPR, 90596-7, RENAL, 3084-1, 2276-4, 2731-8, 98060-5 ####[facility] ([id number])[address], [address], [place] [address] Sodium [Moles/Vol] 143 mmol/L Normal 134-146 [facility] Comment on above: Performed By: #### C BC, UPCR, FEPR, 95765-1, RENAL, 3084-1, 2276-4, 2731-8, 09738-0 ####[facility] ([id number])[address], [address] [place] [address] Urea nitrogen [Mass/Vol] 42 mg/dL High 5-27 [facility] Comment on above: Performed By: #### C BC, UPCR, FEPR, 33716-7, RENAL, 3084-1, 2276-4, 2731-8, 96122-3 ####[facility] ([id number])[address], [address], [place] [address] URIC ACIDon 04-21-2024 Urate [Mass/Vol] 4.3 mg/dL Normal 2.6-7.2 [facility] Comment on above: Performed By: #### C BC, UPCR, FEPR, 50464-1, RENAL, 3084-1, 2276-4, 2731-8, 19436-8 ####[facility] ([id number])[address], [address] [place] [address] URINALYSISon 04-21-2024 Bilirubin Ql (U) Negative Normal NEG [facility] Comment on above: Performed By: #### U A ####[facility] ([id number])[address], [address] [place] [address] BLOOD/HGB Trace Abnormal NEG [facility] Comment on above: Performed By: #### U A ####[facility] ([id number])[address], [address] [place] [address] Color (U) YELLOW Normal YELLOW [facility] Comment on above: Performed By: #### U A ####[facility] ([id number])[address], [address], [place] [address] Glucose Ql (U) Negative Normal NEG [facility] Comment on above: Performed By: #### U A ####[facility] ([id number])[address], [address] [place] [address] Ketones Ql (U) Negative Normal NEG [facility] Comment on above: Performed By: #### U A ####[facility] ([id number])[address], [address], [place] [address] Leukocyte esterase Test strip Ql (U) Large Abnormal NEG [facility] Comment on above: Performed By: #### U A ####[facility] ([id number])[address], [address] [place] [address] MUCOUS PRESENT Abnormal NONE [facility] Comment on above: Performed By: #### U A ####[facility] ([id number])[address], [address] [place] [address] Nitrite Ql (U) Negative Normal NEG [facility] Comment on above: Performed By: #### U A ####[facility] ([id number])[address] [address], [place] [address] pH (U) 6.0 [pH] Normal 5.0-8.5 [facility] Comment on above: Performed By: #### U A ####[facility] ([id number])[address] [address] [place] [address] Protein Ql (U) 50 mg/dL Abnormal NEG [facility] Comment on above: Performed By: #### U A ####[facility] ([id number])[address] [address] [place] [address] R.B.CELLS 5 /hpf Normal 0-5 [facility] Comment on above: Performed By: #### U A ####[facility] ([id number])[address] [address] [place] [address] Specific gravity (U) [Rel density] 1.014 Normal 1.003-1.035 [facility] Comment on above: Performed By: #### U A ####[facility] ([id number])[address] [address] SQUAMOUS EPITHELIUM 1 /hpf Normal 0-5 [facility] Comment on above: Performed By: #### U A ####[facility] ([id number])[address] [address] [place] [address] TURBIDITY HAZY Abnormal CLEAR [facility] Comment on above: Performed By: #### U A ####[facility] ([id number])[address] [address] [place] [address] Urobilinogen (U) [Mass/Vol] mg/dL Normal <1.1 [facility] Comment on above: Performed By: #### U A ####[facility] ([id number])[address] [place] [address], [address], [place] [address] W.B.CELLS 455 /hpf High 0-5 [facility] Comment on above: Performed By: #### U A ####[facility] ([id number])[address] [place] [address], [address] [address] WBC CLUMPS RARE Abnormal NONE [facility] Comment on above: Performed By: #### U A ####[facility] ([id number])[address] [place] [address], [address] [place] [address] Vitamin D+Metabolites [Mass/ Vol]on 04-21-2024 VITAMIN D 25 HYD TOT 32.8 ng/mL Normal 30-100 [facility] Comment on above: Result Comment: Radha min D status 25 [place] Vitamin D Deficiency <20 ng/mLInsufficiency 20-29 ng/mLSufficiency 30-100 ng/mLToxicity >100 ng/mLNOTE: A pediatric reference range has not beenestablished by the warehouse director of this kit.The [employer] recommendsa Vitamin D level of = or >20ng/mL in infantsand children. Performed By: #### C BC, UPCR, FEPR, 83015-6, RENAL, 3084-1, 2276-4, 2731-8, 30908-3 ####[facility] ([id number])[address] [facility], [address], [place] [address] MAGNESIUMon 04-14-2024 Magnesium [Mass/Vol] 1.6 mg/dL Low 1.8-2.6 [facility] Comment on above: Performed By: #### 1 9123-9 ####[facility] ([id number])[address] [place] [address] MAGNESIUMon 04-08-2024 Magnesium [Mass/Vol] 1.5 mg/dL Low 1.8-2.6 [facility] Comment on above: Performed By: #### 1 9123-9 ####[facility] ([id number])[address] [place] [address] MAGNESIUMon 03-31-2024 Magnesium [Mass/Vol] 1.7 mg/dL Low 1.8-2.6 [facility] Comment on above: Performed By: #### 1 9123-9 ####[facility] ([id number])[address] [place] [address] MAGNESIUMon 03-24-2024 Magnesium [Mass/Vol] 1.6 mg/dL Low 1.8-2.6 [facility] Comment on above: Performed By: #### 1 9123-9 ####[facility] ([id number])[address] [place] [address] MAGNESIUMon 03-17-2024 Magnesium [Mass/Vol] 1.6 mg/dL Low 1.8-2.6 [facility] Comment on above: Performed By: #### 1 9123-9 ####[facility] ([id number])[address] [place] [address], [place] [address] MAGNESIUMon 03-10-2024 Magnesium [Mass/Vol] 1.6 mg/dL Low 1.8-2.6 [facility] Comment on above: Performed By: #### 1 9123-9 ####[facility] ([id number])[address] [place] [address] MAGNESIUMon 03-03-2024 Magnesium [Mass/Vol] 1.8 mg/dL Normal 1.8-2.6 [facility] Comment on above: Performed By: #### 1 9123-9 ####[facility] ([id number])[address] [place] [address] MAGNESIUMon 02-25-2024 Magnesium [Mass/Vol] 1.9 mg/dL Normal 1.8-2.6 [facility] Comment on above: Performed By: #### 1 9123-9 ####[facility] ([id number])[address] [place] [address], [place] [address] MAGNESIUMon 02-18-2024 Magnesium [Mass/Vol] 1.9 mg/dL Normal 1.8-2.6 [facility] Comment on above: Performed By: #### 1 9123-9 ####[facility] ([id number])[address] [place] [address] MAGNESIUMon 02-11-2024 Magnesium [Mass/Vol] 2.0 mg/dL Normal 1.8-2.6 [facility] Comment on above: Performed By: #### 1 9123-9 ####[facility] ([id number])[address] [place] [address] MAGNESIUMon 02-04-2024 Magnesium [Mass/Vol] 1.8 mg/dL Normal 1.8-2.6 [facility] Comment on above: Performed By: #### 1 9123-9 ####[facility] ([id number])[address] [place] [address] MAGNESIUMon 01-28-2024 Magnesium [Mass/Vol] 1.8 mg/dL Normal 1.8-2.6 [facility] Comment on above: Performed By: #### 1 9123-9 ####[facility] ([id number])[address] [place] [address] MAGNESIUMon 01-21-2024 Magnesium [Mass/Vol] 1.7 mg/dL Low 1.8-2.6 [facility] Comment on above: Performed By: #### 2 823-3, 14650-1 ####[facility] ([id number])[address] [place] [address] POTASSIUMon 01-21-2024 Potassium [Moles/Vol] 3.6 mmol/L Normal 3.5-5.0 [facility] Comment on above: Performed By: #### 2 823-3, 94430-7 ####[facility] ([id number])[address] [place] [address] MAGNESIUMon 01-14-2024 Magnesium [Mass/Vol] 1.6 mg/dL Low 1.8-2.6 [facility] Comment on above: Performed By: #### 1 9123-9 ####[facility] ([id number])[address] [place] [address] MAGNESIUMon 01-07-2024 Magnesium [Mass/Vol] 1.7 mg/dL Low 1.8-2.6 [facility] Comment on above: Performed By: #### 1 9123-9 ####[facility] ([id number])[address] [place] [address] MAGNESIUMon 12-31-2023 Magnesium [Mass/Vol] 1.7 mg/dL Low 1.8-2.6 [facility] Comment on above: Performed By: #### 1 9123-9 ####[facility] ([id number])[address] [place] [address] MAGNESIUMon 12-24-2023 Magnesium [Mass/Vol] 1.6 mg/dL Low 1.8-2.6 [facility] Comment on above: Performed By: #### 1 9123-9 ####[facility] ([id number])[address] [place] [address] MAGNESIUMon 12-17-2023 Magnesium [Mass/Vol] 1.5 mg/dL Low 1.8-2.6 [facility] Comment on above: Performed By: #### 1 9123-9 ####[facility] ([id number])[address] [place] [address] MAGNESIUMon 12-10-2023 Magnesium [Mass/Vol] 1.7 mg/dL Low 1.8-2.6 [facility] Comment on above: Performed By: #### 1 9123-9 ####[facility] ([id number])[address] [place] [address] MAGNESIUMon 12-03-2023 Magnesium [Mass/Vol] 1.7 mg/dL Low 1.8-2.6 [facility] Comment on above: Performed By: #### 1 9123-9 ####[facility] ([id number])[address] [place] [address] COMPREHENSIVE METABOLIC PANE Jared 11-26-2023 Albumin [Mass/Vol] 3.9 g/dL Normal 3.2-5.3 [facility] Comment on above: Performed By: #### 1 9123-9 ####[facility] ([id number])[address] [place] [address]#### JAS, 36762-0 ####[facility] ([id number])[address] [facility], [address] [place] [address] ALP [Catalytic activity/Vol] 122 U/L Normal 39-130 [facility] Comment on above: Performed By: #### 1 9123-9 ####[facility] ([id number])[address] [place] [address]#### CMP, 97252-0 ####[facility] ([id number])[address], [address], [place] [address] ALT [Catalytic activity/Vol] 29 U/L Normal 0-31 [facility] Comment on above: Performed By: #### 1 9123-9 ####[facility] ([id number])[address] [place] [address]#### CMP, 59534-0 ####[facility] ([id number])[address], [address], [place] [address] Anion gap [Moles/Vol] 9 mmol/L Normal 5-15 [facility] Comment on above: Performed By: #### 1 9123-9 ####[facility] ([id number])[address] [place] [address]#### JAS, 68218-1 ####[facility] ([id number])[address], [address], [place] [address] AST [Catalytic activity/Vol] 22 U/L Normal 0-41 [facility] Comment on above: Performed By: #### 1 9123-9 ####[facility] ([id number])[address] [place] [address]#### JAS, 94342-2 ####[facility] ([id number])[address], [address], [place] [address] Bilirubin [Mass/Vol] 0.4 mg/dL Normal 0.3-1.2 [facility] Comment on above: Performed By: #### 1 9123-9 ####[facility] ([id number])[address] [place] [address]#### JAS, 40797-5 ####[facility] ([id number])[address], [address], [place] [address] Calcium [Mass/Vol] 9.7 mg/dL Normal 8.5-10.5 [facility] Comment on above: Performed By: #### 1 9123-9 ####[facility] ([id number])[address] [place] [address]655#### JAS, 95448-6 ####[facility] ([id number])[address], [address], [place] [address] Chloride [Moles/Vol] 103 mmol/L Normal 98-109 [facility] Comment on above: Performed By: #### 1 9123-9 ####[facility] ([id number])[address] [place] [address]#### JAS, 25195-9 ####[facility] ([id number])[address] [employer], [address] [place] [address] CO2 [Moles/Vol] 30 mmol/L Normal 22-32 [facility] Comment on above: Performed By: #### 1 9123-9 ####[facility] ([id number])[address] [place] [address]#### JAS, 09455-6 ####[facility] ([id number])[address] [facility], [address] [place] [address] Creatinine [Mass/Vol] 1.53 mg/dL High 0.40-1.00 [facility] Comment on above: Result Comment: METH OD TRACEABLE TO IDMS STANDARD Performed By: #### 1 9123-9 ####[facility] ([id number])[address] [place] [address]#### JAS, 62855-4 ####[facility] ([id number])[address] [employer], [address] [address] GFR/1.73 sq M.predicted among non-blacks MDRD (S/P/Bld) [Vol rate/Area] 34 mL/min/{1.73_m2} Low >59 [facility] Comment on above: Result Comment: Repo rted eGFR is based on theCKD-EPI 2020 equation that doesnot use a race coefficient. Performed By: #### 1 9123-9 ####[facility] ([id number])[address] [place] [address]#### JAS, 18019-0 ####[facility] ([id number])[address], [place] [address] Glucose [Mass/Vol] 165 mg/dL High 65-99 [facility] Comment on above: Performed By: #### 1 9123-9 ####[facility] ([id number])[address] [place] [address]#### JAS, 11419-5 ####[facility] ([id number])[address], [address], [place] [address] Potassium [Moles/Vol] 4.4 mmol/L Normal 3.5-5.0 [facility] Comment on above: Performed By: #### 1 9123-9 ####[facility] ([id number])[address] [place] [address]1985#### JAS, 87325-0 ####[facility] ([id number])[address], [address], [place] [address] Protein [Mass/Vol] 7.1 g/dL Normal 6.0-8.0 [facility] Comment on above: Performed By: #### 1 9123-9 ####[facility] ([id number])[address] [place] [address]#### JAS, 99387-5 ####[facility] ([id number])[address], [address], [place] [address] Sodium [Moles/Vol] 142 mmol/L Normal 134-146 [facility] Comment on above: Performed By: #### 1 9123-9 ####[facility] ([id number])[address] [place] [address]04#### JAS, 10171-6 ####[facility] ([id number])[address], [place] [address] Urea nitrogen [Mass/Vol] 43 mg/dL High 5-27 [facility] Comment on above: Performed By: #### 1 9123-9 ####[facility] ([id number])[address] [place] [address] 16256#### JAS, 56597-2 ####[facility] ([id number])[address] [facility], [address] [address] HGB A1C (GLYCO-HGB)on 2023 Glucose [Mass/Vol] 163 mg/dL Normal [facility] Comment on above: Performed By: #### 1 9123-9 ####[facility] ([id number])[address] [place] [address] 36525#### JAS, 30669-5 ####[facility] ([id number])[address] [address] HbA1c (Bld) [Mass fraction] 7.3 % High 4.4-5.6 [facility] Comment on above: Result Comment: NOTE ADA Guidelines Result HgbA1c Normal : less than 5.7 % Prediabetes : 5.7 % to 6.4 % Diabetes : > 6.4 %Use with caution in patients with abnormal hemoglobin variants asthe half-life of red blood cells and in vivo glycation rates areaffected. Performed By: #### 1 9123-9 ####[facility] ([id number])[address] [place] [address] 39987#### JAS, 57479-9 ####[facility] ([id number])[address] [facility], [address] [address] Lipid 1996 panelon Cholesterol [Mass/Vol] 145 mg/dL Low 150-200 [facility] Comment on above: Performed By: #### 1 9123-9 ####[facility] ([id number])[address] [place] [address]#### JAS, 18609-4 ####[facility] ([id number])2130 [facility], [address] [place] [address] Cholesterol in HDL [Mass/Vol] 53 mg/dL Normal >39 [facility] Comment on above: Result Comment: HDL <40 mg/dL - High RiskHDL > or = 40mg/dL- DesirableHDL >60 mg/dL - Negative Risk Performed By: #### 1 9123-9 ####[facility] ([id number])[address] [place] [address]#### JAS, [id number] ####[facility] ([id number])[facility], [address] [address] Cholesterol in LDL [Mass/Vol] 43 mg/dL Normal <130 [facility] Comment on above: Result Comment: LDL <100 mg/dL - DesirableLDL >160 mg/dL - High Risk Performed By: #### 1 9123-9 ####[facility] ([id number])[address] [place] [address]#### JAS, [id number] ####[facility] ([id number])2130 [facility], [address] [place] [address] Cholesterol in VLDL [Mass/Vol] 49 mg/dL High 0-30 [facility] Comment on above: Performed By: #### 1 9123-9 ####[facility] ([id number])[address] [place] [address]#### CMP, [id number] ####[facility] ([id number])[address], [address] [place] [address] CHOLESTEROL:HDL 2.7 Normal 1.0-5.0 [facility] Comment on above: Performed By: #### 1 9123-9 ####[facility] ([id number])[address] [place] [address]#### CMP, [id number] ####[facility] [facility] ([id number])2129 [facility], [address] [place] [address] Triglyceride [Mass/Vol] 245 mg/dL High 27-150 [facility] Comment on above: Performed By: #### 1 9123-9 ####[facility] ([id number])[address] [place] [address]#### CMP, [id number] ####[facility] ([id number])2129 [facility], [address] [place] [address] MAGNESIUMon 11-26-2023 Magnesium [Mass/Vol] 1.8 mg/dL Normal 1.8-2.6 [facility] Comment on above: Performed By: #### 1 9123-9 ####[facility] ([id number])[address] [place] [address]#### CMP, [id number] ####[facility] ([id number])2129 [facility], [address] [place] [address] MICROALBUMIN - ALBUMIN:CREAT ININE URINE RATIOon 11-26-2023 ALB/CREAT RATIO 352.8 mg/g creat High 0.0-30.0 [facility] Comment on above: Performed By: #### M ALBU #### [facility] ([id number]) [address] [place] [address] Albumin DL <= 20 mg/L (U) [Mass/Vol] 14.6 mg/dL High 0.0-1.9 [facility] Comment on above: Performed By: #### M ALBU #### [facility] ([id number]) [address] [facility] [address] [place] [address] URINE CREAT 41.38 mg/dL Normal [facility] Comment on above: Performed By: #### M ALBU #### [facility] ([id number]) [address] [facility] [address] [place] [address] Office Visiton 11-19-2023 Follow-up visit [id number] Adore Wolff 1940 F Date Provider Department Center 11/19/2023 DARELL HOUSTON [facility] Family History Problem Relation Age of Onset Heart attack Mother Family Status - Relation Status Age at Mother Level of Service:51072 CO OFFICE/OUTPATIENT ESTABLISHED LOW MDM 20 MIN Normal [facility] Magnesium [Mass/volume] in S asiya or PlasmaOrdered By: Gia Conley on 11-16-2023 Magnesium [Mass/Vol] 1.4 mg/dL 1.9-2.7 [facility] Multiple labsOrdered By: Mary Ann Carter on 11-16-2023 [facility] PTH INTACTon 01-16-2023 PTH, Intact 115 pg/mL Critically high 15-65 [facility] Comment on above: Performed By: #### M G, URIC, RENAL #### [facility] [address] [address] [address] Nacho Jeffery FERRITINon 01-15-2023 Ferritin [Mass/Vol] 304.0 ng/mL Critically high 8.0-252.0 [facility] Comment on above: Performed By: #### M G, URIC, RENAL #### [facility] [address] [address] [address] Nacho Jeffery HEMOGRAM AND PLATELon 2022 Hematocrit (Bld) [Volume fraction] 36.0 % Normal 36.0-48.0 The [facility] Comment on above: Performed By: #### M G, URIC, RENAL #### [facility] [address] [place] [address] Dr. Nacho Jeffery Hemoglobin (Bld) [Mass/Vol] 11.6 g/dL Critically low 12.0-16.0 The [facility] Comment on above: Performed By: #### M G, URIC, RENAL #### [facility] [address] [place] [address] Dr. Nacho Jeffery MCH (RBC) [Entitic mass] 29.4 pg Normal 26.7-34.0 The [facility] Comment on above: Performed By: #### M G, URIC, RENAL #### [facility] [address] [place] [address] Dr. Nacho Jeffery MCHC (RBC) [Mass/Vol] 32.2 g/dL Normal 29.9-35.2 The [facility] Comment on above: Performed By: #### M G, URIC, RENAL #### [facility] [address] [place] [address] Dr. Nacho Jeffery MCV (RBC) [Entitic vol] 91.4 fL Normal 81.0-99.0 The [facility] Comment on above: Performed By: #### M G, URIC, RENAL #### [facility] [address] [place] [address] Dr. Nacho Jeffery PLT 202 103/ul Normal 150-450 The [facility] Comment on above: Performed By: #### M G, URIC, RENAL #### [facility] [address] [place] [address] Dr. Nacho Jeffery RBC 3.94 106/ul Critically low 4.20-5.40 The [facility] Comment on above: Performed By: #### M G, URIC, RENAL #### [facility] [address] [place] [address] Dr. Nacho Jeffery WBC 5.9 103/ul Normal 4.0-11.0 The [facility] Comment on above: Performed By: #### M G, URIC, RENAL #### [facility] [address] [address] [address] Nacho Jeffery IRON AND TIBCon 01-15-2023 % SATURATION 23.4 % Normal [facility] Comment on above: Performed By: #### M G, URIC, RENAL #### [facility] [address] [address] [address] Nacho Jeffery Iron [Mass/Vol] 62.0 ug/dL Normal 50.0-170.0 The [facility] Comment on above: Performed By: #### M G, URIC, RENAL #### [facility] [address] [address] [address] Nacho Jeffery TIBC DIRECT 265.0 ug/dL Normal 250.0-450.0 The [facility] Comment on above: Performed By: #### M G, URIC, RENAL #### [facility] [address] [place] [address] Dr. Nacho Jeffery MAGNESIUMon 01-15-2023 Magnesium [Mass/Vol] 1.5 mg/dL Critically low 1.8-2.4 [facility] Comment on above: Performed By: #### M G, URIC, RENAL #### [facility] [address] [address] [address] Nacho Jeffery RENAL FUNCTION PANELon 01-15 Albumin [Mass/Vol] 3.4 g/dL Normal 3.4-5.0 [facility] Comment on above: Performed By: #### M G, URIC, RENAL #### [facility] [address] [address] [address] Nacho Jeffery Calcium [Mass/Vol] 9.2 mg/dL Normal 8.5-10.1 [facility] Comment on above: Performed By: #### M G, URIC, RENAL #### [facility] [address] [place] [address] Dr. Nacho Jeffery Chloride [Moles/Vol] 104 mmol/L Normal 98-107 The [facility] Comment on above: Performed By: #### M G, URIC, RENAL #### [facility] [address] [place] [address] Dr. Nacho Jeffery CO2 [Moles/Vol] 30.8 mmol/L Normal 21.0-32.0 [facility] Comment on above: Performed By: #### M G, URIC, RENAL #### [facility] [address] [address] [address] Nacho Jeffery Creatinine [Mass/Vol] 1.52 mg/dL Critically high 0.55-1.02 [facility] Comment on above: Performed By: #### M G, URIC, RENAL #### [facility] [address] [place] [address] Dr. Nacho Jeffery EGFR-AF SYRIAN 40 mL/min/1.73m2 Critically low >=60 [facility] Comment on above: Performed By: #### M Jamarcus, URIC, RENAL #### [facility] [address] [place] [address] Dr. Nacho Jeffery EGFR-NON AF SYRIAN 33 mL/min/1.73m2 Critically low >=60 [facility] Comment on above: Performed By: #### M Jamarcus, URIC, RENAL #### [facility] [address] [address] [address] Nacho Jeffery Glucose [Mass/Vol] 172 mg/dL Critically high 74-106 [facility] Comment on above: Performed By: #### M Jamarcus, URIC, RENAL #### [facility] [address] [place] [address] Dr. Nacho Jeffery Phosphate [Mass/Vol] 3.7 mg/dL Normal 2.6-4.7 [facility] Comment on above: Performed By: #### M G, URIC, RENAL #### [facility] [address] [place] [address] Dr. Nacho Jeffery Potassium [Moles/Vol] 4.2 mmol/L Normal 3.5-5.1 [facility] Comment on above: Performed By: #### M G, URIC, RENAL #### [facility] [address] [address] [address] Nacho Jeffery Sodium [Moles/Vol] 143 mmol/L Normal 136-145 [facility] Comment on above: Performed By: #### M G, URIC, RENAL #### [facility] [address] [place] [address] Dr. Nacho Jeffery Urea nitrogen [Mass/Vol] 56.0 mg/dL Critically high 7.0-18.0 [facility] Comment on above: Performed By: #### M G, URIC, RENAL #### [facility] [address] [place] [address] Dr. Nacho Jeffery UA RANDOM W/MICROSCOPICon BACTERIA NONE SEEN Normal NONE SEEN [facility] Comment on above: Performed By: #### M G, URIC, RENAL #### [facility] [address] [place] [address] Dr. Nacho Jeffery Bilirubin Ql (U) Negative Normal NEGATIVE The [facility] Comment on above: Performed By: #### M G, URIC, RENAL #### [facility] [address] [place] [address] Dr. Nacho Jeffery CAST NONE SEEN Normal NONE SEEN [facility] Comment on above: Performed By: #### M G, URIC, RENAL #### [facility] [address] [place] [address] Dr. Nacho Jeffery Clarity (U) CLEAR Normal CLEAR The [facility] Comment on above: Performed By: #### M G, URIC, RENAL #### [facility] [address] [place] [address] Dr. Nacho Jeffery Color (U) LT. YELLOW Normal YELLOW The [facility] Comment on above: Performed By: #### M G, URIC, RENAL #### [facility] [address] [place] [address] Dr. Nacho Jeffery Crystals LM Nom (Urine sed) NONE SEEN Normal NONE SEEN The [facility] Comment on above: Performed By: #### M G, URIC, RENAL #### [facility] [address] [place] [address] Dr. Nacho Jeffery Epithelial cells LM Ql (Urine sed) RARE Normal NONE SEEN /RARE The [facility] Comment on above: Performed By: #### M G, URIC, RENAL #### [facility] [address] [place] [address] Dr. Nacho Jeffery Glucose Ql (U) Negative Normal NEGATIVE The [facility] Comment on above: Performed By: #### M G, URIC, RENAL #### [facility] [address] [address] [address] Nacho Jeffery Hemoglobin Ql (U) Negative Normal NEGATIVE The [facility] Comment on above: Performed By: #### M G, URIC, RENAL #### [facility] [address] [address] [address] Nacho Jeffery Ketones Ql (U) Negative Normal NEGATIVE The [facility] Comment on above: Performed By: #### M G, URIC, RENAL #### [facility] [address] [address] [address] Nacho Jeffery LEUKOCYTES TRACE Abnormal NEGATIVE [facility] Comment on above: Performed By: #### M G, URIC, RENAL #### [facility] [address] [place] [address] Dr. Nacho Jeffery MUCOUS NONE SEEN Normal NONE SEEN The [facility] Comment on above: Performed By: #### M G, URIC, RENAL #### [facility] [address] [place] [address] Dr. Nacho Jeffery Nitrite Ql (U) Negative Normal NEGATIVE The [facility] Comment on above: Performed By: #### M G, URIC, RENAL #### [facility] [address] [place] [address] Dr. Nacho Jeffery pH (U) 5.5 [pH] Normal 5-9 [facility] Comment on above: Performed By: #### M G, URIC, RENAL #### [facility] [address] [place] [address] Dr. Nacho Jeffery RBC 0-2 Normal 0-2 [facility] Comment on above: Performed By: #### M G, URIC, RENAL #### [facility] [address] [place] [address] Dr. Nacho Jeffery SPEC GRAVITY 1.015 Normal 1.005-<=1.025 [facility] Comment on above: Performed By: #### M G, URIC, RENAL #### [facility] [address] [place] [address] Dr. Nacho Jeffery UA PROTEIN Negative Normal NEGATIVE/ TRACE The [facility] Comment on above: Performed By: #### M G, URIC, RENAL #### [facility] [address] [address] [address] Nacho Jeffery Urobilinogen Qn (U) 0.2 {Zuleyka'U}/dL Normal 0.2 - 1. 0 [facility] Comment on above: Performed By: #### M G, URIC, RENAL #### [facility] [address] [place] [address] Dr. Nacho Jeffery WBC 2-5 Abnormal NONE SEEN The [facility] Comment on above: Performed By: #### M Jamarcus, URIC, RENAL #### [facility] [address] [place] [address] Dr. Nacho Jeffery URIC ACID SERUMon 01-15-2023 Urate [Mass/Vol] 7.0 mg/dL Critically high 2.6-6.0 [facility] Comment on above: Performed By: #### M Jamarcus, URIC, RENAL #### [facility] [address] [place] [address] Dr. Nacho Jeffery URINE T PROTEIN CREAT RATIOo n 01-15-2023 Protein (U) [Mass/Vol] 13.4 mg/dL Critically high <=12.0 [facility] Comment on above: Performed By: #### U RTPCR #### [facility] [address] [place] [address] Dr. Nacho Jeffery UR PROT CREAT RAT 0.24 Normal The [facility] Comment on above: Performed By: #### U RTPCR #### [facility] [address] [place] [address] Dr. Nacho Jeffery URINE CREAT 56.90 mg/dL Normal 20.00-300.00 [facility] Comment on above: Performed By: #### U RTPCR #### [facility] [address] [place] [address] Dr. Nacho Jeffery VITAMIN D 25 OHon 01-15-2023 VIT D 25-OH 52.6 ng/mL Normal [facility] Comment on above: Performed By: #### M G, URIC, RENAL #### [facility] [address] [address] [address] Nacho Jeffery VIT D RANGES SEE BELOW Normal [facility] Comment on above: Result Comment: <20 ng/mL Vit D deficient 20 - <30 ng/mL Vit D insufficient 30 - 100 ng/mL Vit D sufficient >100 ng/mL Potential Toxicity Performed By: #### M Jamarcus, URIC, RENAL #### [facility] [address] [address] [address] Nacho Jeffery Telemedicineon 12-06-2022 Telemedicine [id number] Adore Wolff Maryjane 1940 F Date Provider Department Center 12/06/2022 MOE RAMSO [facility] Family History Problem Relation Age of Onset Heart attack Mother Family Status - Relation Status Age at Mother Level of Service:08410 CO OFFICE/OUTPATIENT EST PT MAY NOT REQ PHYS/QHP Normal [facility] GLYCOHEMOGLOBIN A1Con 2021 ADA RECOMMENDATION SEE BELOW Normal [facility] Comment on above: Result Comment: ADA RECOMMENDED LIMIT 4.0 - 6.0 ADA THERAPEUTIC TARGET < 7.0 ACTION SUGGESTED > 7.0 Performed By: #### A 1C #### [facility] [address] [place] [address] Dr. Nacho Jeffery Glucose [Mass/Vol] 143 mg/dL Normal [facility] Comment on above: Performed By: #### A 1C #### [facility] [address] [address] [address] Nacho Jeffery HbA1c (Bld) [Mass fraction] 6.6 % Critically high 4.5-6.2 [facility] Comment on above: Performed By: #### A 1C #### [facility] [address] [place] [address] Dr. Nacho Jeffery LIPID PROFILEon 11-09-2022 CHOL-HDL RATIO NORM SEE BELOW Normal [facility] Comment on above: Result Comment: 3.3 - 4.4 LOW RISK 4.4 - 7.1 AVERAGE RISK 7.1 - 11.0 MODERATE RISK >11.0 HIGH RISK Performed By: #### M G, URIC, RENAL #### [facility] [address] [address] [address] Nacho Jeffery Cholesterol [Mass/Vol] 141 mg/dL Normal <=200 [facility] Comment on above: Performed By: #### M G, URIC, RENAL #### [facility] [address] [address] [address] Nacho Jeffery Cholesterol in HDL [Mass/Vol] 59 mg/dL Normal 40-60 [facility] Comment on above: Performed By: #### M G, URIC, RENAL #### [facility] [address] [address] [address] Nacho Jeffery Cholesterol in LDL [Mass/Vol] 46.2 mg/dL Normal [facility] Comment on above: Performed By: #### M G, URIC, RENAL #### [facility] [address] [address] [address] Nacho Jeffery Cholesterol.total/C holesterol in HDL [Mass ratio] 2.4 {ratio} Normal [facility] Comment on above: Performed By: #### M G, URIC, RENAL #### [facility] [address] [address] [address] Nacho Jeffery HDL NORMAL > or = 60 mg/dl - LO W CARDIOVASCULAR RISK <40 mg/dl - HIGH CARDIOVASCULAR RISK Normal [facility] Comment on above: Performed By: #### M G, URIC, RENAL #### [facility] [address] [address] [address] Nacho Jeffery LDL CALC NORMAL SEE BELOW Normal The [facility] Comment on above: Result Comment: <100 mg/dl OPTIMAL 100 - 129 mg/dl NEAR OR ABOVE OPTIMAL 130 - 159 mg/dl BORDERLINE HIGH 160 - 189 mg/dl HIGH >190 mg/dl VERY HIGH Performed By: #### M G, URIC, RENAL #### [facility] [address] [address] [address] Nacho Jeffery Triglyceride [Mass/Vol] 179 mg/dL Critically high <=150 [facility] Comment on above: Performed By: #### M G, URIC, RENAL #### [facility] [address] [address] [address] Nacho Jeffery VLDL CALC 35.8 mg/dL Normal [facility] Comment on above: Performed By: #### M G, URIC, RENAL #### [facility] [address] [address] [address] Nacho Jeffery PROF 14(COMP METB)on 022 Albumin [Mass/Vol] 3.2 g/dL Critically low 3.4-5.0 [facility] Comment on above: Performed By: #### M G, URIC, RENAL #### [facility] [address] [address] [address] Nacho Jeffery Albumin/Globulin [Mass ratio] 0.8 {ratio} Normal [facility] Comment on above: Performed By: #### M G, URIC, RENAL #### [facility] [address] [place] [address] Dr. Nacho Jeffery ALP [Catalytic activity/Vol] 109 U/L Normal 46-116 [facility] Comment on above: Performed By: #### M G, URIC, RENAL #### [facility] [address] [place] [address] Dr. Nacho Jeffery ALT [Catalytic activity/Vol] 38 U/L Normal 14-59 [facility] Comment on above: Performed By: #### M G, URIC, RENAL #### [facility] [address] [place] [address] Dr. Nacho Jeffery Anion gap [Moles/Vol] 13.7 mmol/L Normal [facility] Comment on above: Performed By: #### M G, URIC, RENAL #### [facility] [address] [place] [address] Dr. Nacho Jeffery AST [Catalytic activity/Vol] 27 U/L Normal 15-37 [facility] Comment on above: Performed By: #### M G, URIC, RENAL #### [facility] [address] [place] [address] Dr. Nacho Jeffery Bilirubin [Mass/Vol] 0.4 mg/dL Normal 0.2-1.0 [facility] Comment on above: Performed By: #### M G, URIC, RENAL #### [facility] [address] [address] [address] Nacho Jeffery Calcium [Mass/Vol] 9.2 mg/dL Normal 8.5-10.1 [facility] Comment on above: Performed By: #### M G, URIC, RENAL #### [facility] [address] [address] [address] Nacho Jeffery Chloride [Moles/Vol] 105 mmol/L Normal 98-107 [facility] Comment on above: Performed By: #### M G, URIC, RENAL #### [facility] [address] [address] [address] Nacho Jeffery CO2 [Moles/Vol] 29.5 mmol/L Normal 21.0-32.0 [facility] Comment on above: Performed By: #### M G, URIC, RENAL #### [facility] [address] [place] [address] Dr. Nacho Jeffery Creatinine [Mass/Vol] 1.62 mg/dL Critically high 0.55-1.02 [facility] Comment on above: Performed By: #### M G, URIC, RENAL #### [facility] [address] [place] [address] Dr. Nacho Jeffery EGFR-AF SYRIAN 37 mL/min/1.73m2 Critically low >=60 [facility] Comment on above: Performed By: #### M G, URIC, RENAL #### [facility] [address] [place] [address] Dr. Nacho Jeffery EGFR-NON AF SYRIAN 31 mL/min/1.73m2 Critically low >=60 [facility] Comment on above: Performed By: #### M G, URIC, RENAL #### [facility] [address] [address] [address] Nacho Jeffery Globulin (S) [Mass/Vol] 3.8 g/dL Normal [facility] Comment on above: Performed By: #### M G, URIC, RENAL #### [facility] [address] [address] [address] Nacho Jeffery Glucose [Mass/Vol] 102 mg/dL Normal 74-106 [facility] Comment on above: Performed By: #### M G, URIC, RENAL #### [facility] [address] [place] [address] Dr. Nacho Jeffery Potassium [Moles/Vol] 4.2 mmol/L Normal 3.5-5.1 [facility] Comment on above: Performed By: #### M Jamarcus, URIC, RENAL #### [facility] [address] [place] [address] Dr. Nacho Jeffery Protein [Mass/Vol] 7.0 g/dL Normal 6.4-8.2 [facility] Comment on above: Performed By: #### M Jamarcus, URIC, RENAL #### [facility] [address] [place] [address] Dr. Nacho Jeffery Sodium [Moles/Vol] 144 mmol/L Normal 136-145 [facility] Comment on above: Performed By: #### M Jamarcus URIC, RENAL #### [facility] [address] [place] [address] Dr. Nacho Jeffery Urea nitrogen [Mass/Vol] 45.0 mg/dL Critically high 7.0-18.0 [facility] Comment on above: Performed By: #### M Jamarcus, URIC, RENAL #### [facility] [address] [place] [address] Dr. Nacho Jeffery Urea nitrogen/Creatinine [Mass ratio] 27.8 mg/mg Normal [facility] Comment on above: Performed By: #### M Jamarcus, URIC, RENAL #### [facility] [address] [place] [address] Dr. Nacho Jeffery OSMOLALITY URINEon 2 Osmolality, Urine 466 mOsmol/kg Normal [facility] Comment on above: Result Comment: 24 h r : 300 - 900 Random: 50 - 1400 After 12hr fluid restriction: >850 Performed By: #### M G, URIC, RENAL #### [facility] [address] [place] [address] Dr. Nacho Jeffery PTH INTACTon 07-13-2022 PTH, Intact 84 pg/mL Critically high 15-65 [facility] Comment on above: Performed By: #### P THINT #### [facility] [address] [address] [address] Nacho Jeffery VIT D 25-OH LABCORPon 2021 Vitamin D, 25-Hydroxy 34.7 ng/mL Normal 30.0-100.0 [facility] Comment on above: Result Comment: Radha min D deficiency has been defined by the [place] of [employer] and an Endocrine Society practice guideline as a level of serum 25-OH vitamin D less than 20 ng/mL (1,2). The Endocrine Society went on to further define vitamin D insufficiency as a level between 21 and 29 ng/mL (2). 1. IOM ([place] of Medicine). 2010. Dietary reference intakes for calcium and D. [place]: The National Academies Press. 2. Magdiel MF, Kb HARRIS, Evens PEPPER, et al. Evaluation, treatment, and prevention of vitamin D deficiency: an Endocrine Society clinical practice guideline. JCEM. 2010; 96(7):1911-30. Performed By: #### M G, URIC, RENAL #### [facility] [address] [address] [address] Nahco Jeffery HEMOGRAM AND PLATELon 2021 Hematocrit (Bld) [Volume fraction] 35.5 % Critically low 36.0-48.0 [facility] Comment on above: Performed By: #### M G, URIC, RENAL #### [facility] [address] [address] [address] Nacho Jeffery Hemoglobin (Bld) [Mass/Vol] 11.5 g/dL Critically low 12.0-16.0 [facility] Comment on above: Performed By: #### M G, URIC, RENAL #### [facility] [address] [address] [address] Nacho Jeffery MCH (RBC) [Entitic mass] 30.6 pg Normal 26.7-34.0 [facility] Comment on above: Performed By: #### M G, URIC, RENAL #### [facility] [address] [address] [address] Nacho Jeffery MCHC (RBC) [Mass/Vol] 32.4 g/dL Normal 29.9-35.2 [facility] Comment on above: Performed By: #### M G, URIC, RENAL #### [facility] [address] [place] [address] Dr. Nacho Jeffery MCV (RBC) [Entitic vol] 94.4 fL Normal 81.0-99.0 [facility] Comment on above: Performed By: #### M G, URIC, RENAL #### [facility] [address] [address] [address] Nacho Jeffery PLT 192 103/ul Normal 150-450 [facility] Comment on above: Performed By: #### M G, URIC, RENAL #### [facility] [address] [place] [address] Dr. Nacho Jeffery RBC 3.76 106/ul Critically low 4.20-5.40 [facility] Comment on above: Performed By: #### M G, URIC, RENAL #### [facility] [address] [place] [address] Dr. Nacho Jeffery WBC 6.1 103/ul Normal 4.0-11.0 [facility] Comment on above: Performed By: #### M G, URIC, RENAL #### [facility] [address] [place] [address] Dr. Nacho Jeffery MAGNESIUMon 07-12-2022 Magnesium [Mass/Vol] 1.3 mg/dL Critically low 1.8-2.4 [facility] Comment on above: Performed By: #### U CHRISTOFER, MG, RENAL #### [facility] [address] [place] [address] Dr. Nacho Jeffery RENAL FUNCTION PANELon 07-12 Albumin [Mass/Vol] 3.3 g/dL Critically low 3.4-5.0 [facility] Comment on above: Performed By: #### U CHRISTOFER, MG, RENAL #### [facility] [address] [place] [address] Dr. Nacho Jeffery Calcium [Mass/Vol] 9.1 mg/dL Normal 8.5-10.1 [facility] Comment on above: Performed By: #### U CHRISTOFER, MG, RENAL #### [facility] [address] [place] [address] Dr. Nacho Jeffery Chloride [Moles/Vol] 104 mmol/L Normal 98-107 [facility] Comment on above: Performed By: #### U CHRISTOFER, MG, RENAL #### [facility] [address] [place] [address] Dr. Nacho Jeffery CO2 [Moles/Vol] 31.7 mmol/L Normal 21.0-32.0 [facility] Comment on above: Performed By: #### U CHRISTOFER, MG, RENAL #### [facility] [address] [place] [address] Dr. Nacho Jeffery Creatinine [Mass/Vol] 1.52 mg/dL Critically high 0.55-1.02 [facility] Comment on above: Performed By: #### U CHRISTOFER, MG, RENAL #### [facility] [address] [place] [address] Dr. Nacho Jeffery EGFR-AF SYRIAN 40 mL/min/1.73m2 Critically low >=60 [facility] Comment on above: Performed By: #### U CHRISTOFER, MG, RENAL #### [facility] [address] [place] [address] Dr. Nacho Jeffery EGFR-NON AF SYRIAN 33 mL/min/1.73m2 Critically low >=60 [facility] Comment on above: Performed By: #### U CHRISTOFER, MG, RENAL #### [facility] [address] [place] [address] Dr. Nacho Jeffery Glucose [Mass/Vol] 221 mg/dL Critically high 74-106 [facility] Comment on above: Performed By: #### U CHRISTOFER, MG, RENAL #### [facility] [address] [place] [address] Dr. Nacho Jeffery Phosphate [Mass/Vol] 3.8 mg/dL Normal 2.6-4.7 [facility] Comment on above: Performed By: #### U CHRISTOFER, MG, RENAL #### [facility] [address] [place] [address] Dr. Nacho Jeffery Potassium [Moles/Vol] 4.1 mmol/L Normal 3.5-5.1 [facility] Comment on above: Performed By: #### U CHRISTOFER, MG, RENAL #### [facility] [address] [place] [address] Dr. Nacho Jeffery Sodium [Moles/Vol] 143 mmol/L Normal 136-145 [facility] Comment on above: Performed By: #### U CHRISTOFER, MG, RENAL #### [facility] [address] [place] [address] Dr. Nacho Jeffery Urea nitrogen [Mass/Vol] 45.0 mg/dL Critically high 7.0-18.0 [facility] Comment on above: Performed By: #### U CHRISTOFER, MG, RENAL #### [facility] [address] [place] [address] Dr. Nacho Jeffery UA RANDOM W/MICROSCOPICon BACTERIA NONE SEEN Normal NONE SEEN [facility] Comment on above: Performed By: #### M G, URIC, RENAL #### [facility] [address] [place] [address] Dr. Nacho Jeffery Bilirubin Ql (U) Negative Normal NEGATIVE [facility] Comment on above: Performed By: #### M G, URIC, RENAL #### [facility] [address] [place] [address] Dr. Nacho Jeffery CAST NONE SEEN Normal NONE SEEN [facility] Comment on above: Performed By: #### M G, URIC, RENAL #### [facility] [address] [place] [address] Dr. Nacho Jeffery Clarity (U) CLEAR Normal CLEAR The [facility] Comment on above: Performed By: #### M G, URIC, RENAL #### [facility] [address] [place] [address] Dr. Nacho Jeffery Color (U) LT. YELLOW Normal YELLOW The [facility] Comment on above: Performed By: #### M G, URIC, RENAL #### [facility] [address] [place] [address] Dr. Nacho Jeffery Crystals LM Nom (Urine sed) NONE SEEN Normal NONE SEEN [facility] Comment on above: Performed By: #### M G, URIC, RENAL #### [facility] [address] [address] [address] Nacho Jeffery Epithelial cells LM Ql (Urine sed) FEW Abnormal NONE SEEN /RARE The [facility] Comment on above: Performed By: #### M G, URIC, RENAL #### [facility] [address] [address] [address] Nacho Jeffery Glucose Ql (U) Negative Normal NEGATIVE The [facility] Comment on above: Performed By: #### M G, URIC, RENAL #### [facility] [address] [address] [address] Nacho Jeffery Hemoglobin Ql (U) Negative Normal NEGATIVE The [facility] Comment on above: Performed By: #### M G, URIC, RENAL #### [facility] [address] [address] [address] Nacho Jeffery Ketones Ql (U) Negative Normal NEGATIVE The [facility] Comment on above: Performed By: #### M G, URIC, RENAL #### [facility] [address] [address] [address] Nacho Jeffery LEUKOCYTES TRACE Abnormal NEGATIVE [facility] Comment on above: Performed By: #### M G, URIC, RENAL #### [facility] [address] [address] [address] Nacho Jeffery MUCOUS NONE SEEN Normal NONE SEEN The [facility] Comment on above: Performed By: #### M G, URIC, RENAL #### [facility] [address] [address] [address] Nacho Jeffery Nitrite Ql (U) Negative Normal NEGATIVE The [facility] Comment on above: Performed By: #### M G, URIC, RENAL #### [facility] [address] [address] [address] Nacho Jeffery pH (U) 6.0 [pH] Normal 5-9 The [facility] Comment on above: Performed By: #### M G, URIC, RENAL #### [facility] [address] [address] [address] Nacho Jeffery RBC NONE SEEN Abnormal 0-2 The [facility] Comment on above: Performed By: #### M G, URIC, RENAL #### [facility] [address] [address] [address] Nacho Jeffery SPEC GRAVITY 1.015 Normal 1.005-<=1.025 The [facility] Comment on above: Performed By: #### M G, URIC, RENAL #### [facility] [address] [address] [address] Nacho Jeffery UA PROTEIN Negative Normal NEGATIVE/ TRACE The [facility] Comment on above: Performed By: #### M G, URIC, RENAL #### [facility] [address] [address] [address] Nacho Jeffery Urobilinogen Qn (U) 0.2 {Zuleyka'U}/dL Normal 0.2 - 1. 0 The [facility] Comment on above: Performed By: #### M G, URIC, RENAL #### [facility] [address] [place] [address] Dr. Nacho Jeffery WBC 2-5 Abnormal NONE SEEN The [facility] Comment on above: Performed By: #### M G, URIC, RENAL #### [facility] [address] [address] [address] Nacho Jeffery URIC ACID SERUMon 07-12-2022 Urate [Mass/Vol] 7.9 mg/dL Critically high 2.6-6.0 [facility] Comment on above: Performed By: #### U CHRISTOFER, MG, RENAL #### [facility] [address] [place] [address] Dr. Nacho Jeffery URINE T PROTEIN CREAT RATIOo n 07-12-2022 Protein (U) [Mass/Vol] 17.5 mg/dL Critically high <=12.0 The [facility] Comment on above: Performed By: #### M G, URIC, RENAL #### [facility] [address] [place] [address] Dr. Nacho Jeffery UR PROT CREAT RAT 0.29 Normal The [facility] Comment on above: Performed By: #### M G, URIC, RENAL #### [facility] [address] [place] [address] Dr. Nacho Jeffery URINE CREAT 60.37 mg/dL Normal 20.00-300.00 The [facility] Comment on above: Performed By: #### M G, URIC, RENAL #### [facility] [address] [address] [address] Nacho Jeffery ALBUMIN, RANDOM URINE W/CREA TININEon 05-11-2022 ALBUMIN, URINE 0.5 mg/dL Normal See Note: [facility] Comment on above: Result Comment: Refe rence Range: Reference Range Not established Performed By: #### 4 96, 7600, 6517, 83318 #### [facility] [address], [address] [place] [address] [employer]: Mauricio Kern MD ALBUMIN/CREATININE RATIO, RANDOM URINE [...] Performed By: #### 4 96, 7600, 6517, 15259 #### [facility] [address] [address] [employer]: Mauricio Kern MD Creatinine (U) [Mass/Vol] 74 mg/dL Normal 20-275 [facility] Comment on above: Performed By: #### 4 96, 7600, 6517, 87865 #### [facility] [address], [address] [place] [address] [employer]: Mauricio Kern MD BASIC METABOLIC PANELon 04-14 GLUCOSE Normal [facility] Comment on above: Result Comment: TEST NOT PERFORMED No specimen received. Performed By: #### 4 96, 7600, 6517, 36938 #### [facility] [address], [address] [place] [address] [employer]: Mauricio Kern MD HEMOGLOBIN A1con 06-30-2022 HEMOGLOBIN A1c Normal [facility] Comment on above: Result Comment: TEST NOT PERFORMED No specimen received. Performed By: #### 4 96, 7600, 6517, 04259 #### [facility] of [address], [address] [place] [address] [employer]: Mauricio Kern MD LIPID PANEL, [facility] [place] 06-3 0 CHOL/HDLC RATIO Normal [facility] Comment on above: Result Comment: TEST NOT PERFORMED No specimen received. Performed By: #### 4 96, 7600, 6517, 83655 #### [facility] of [address], [address] [place] [address] [employer]: Mauricio Kern MD CHOLESTEROL, TOTAL Normal [facility] Comment on above: Result Comment: TEST NOT PERFORMED No specimen received. Performed By: #### 4 96, 7600, 6517, 98922 #### [facility] [address], [address] [place] [address] [employer]: Mauricio Kern MD HDL CHOLESTEROL Normal [facility] Comment on above: Result Comment: TEST NOT PERFORMED No specimen received. Performed By: #### 4 96, 7600, 6517, 71053 #### [facility] [address] [address] [employer]: Mauricio Kern MD LDL-CHOLESTEROL Normal [facility] Comment on above: Result Comment: TEST NOT PERFORMED No specimen received. Performed By: #### 4 96, 7600, 6517, 26927 #### [facility] [address] [address] [employer]: Mauricio Kern MD NON HDL CHOLESTEROL Normal [facility] Comment on above: Result Comment: TEST NOT PERFORMED No specimen received. Performed By: #### 4 96, 7600, 6517, 03702 #### [facility] of [address] [address] [employer]: Mauricio Kern MD TRIGLYCERIDES Normal [facility] Comment on above: Result Comment: TEST NOT PERFORMED No specimen received. Performed By: #### 4 96, 7600, 6517, 42448 #### [facility] [address] [address] [employer]: Mauricio Kern MD BASIC METABOLIC PANEL - Calcium [Mass/Vol] 9.1 mg/dL Normal 8.6-10.4 [facility] Comment on above: Performed By: #### 1 0165, 496, 7600 #### [facility] [address] [address] [employer]: Mauricio Kern MD Chloride [Moles/Vol] 105 mmol/L Normal 98-110 [facility] Comment on above: Performed By: #### 1 0165, 496, 7600 #### [facility] [address] [address] [employer]: Mauricio Kern MD CO2 [Moles/Vol] 25 mmol/L Normal 20-32 [facility] Comment on above: Performed By: #### 1 0165, 496, 7600 #### [facility] [address] [address] [employer]: Mauricio Kern MD Creatinine [Mass/Vol] 1.73 mg/dL High 0.60-0.93 [facility] Comment on above: Result Comment: For patients >49 years of age, the reference limit for Creatinine is approximately 13% higher for people identified as -[place]. Performed By: #### 1 0165, 496, 7600 #### [facility] [address] [address] [employer]: Mauricio Kern MD eGFR NON-AFR. SYRIAN 28 mL/min/1.73m2 Low > OR = 60 [facility] Comment on above: Performed By: #### 1 0165, 496, 7600 #### [facility] [address] [address] [employer]: Mauricio Kern MD GFR/1.73 sq M.predicted among blacks MDRD (S/P/Bld) [Vol rate/Area] 32 mL/min/{1.73_m2} Low > OR = 60 [facility] Comment on above: Performed By: #### 1 0165, 496, 7600 #### [facility] [address] [address] [employer]: Mauricio Kern MD Glucose [Mass/Vol] 137 mg/dL High 65-99 [facility] Comment on above: Result Comment: Fasting reference interval For someone without known diabetes, a glucose value >125 mg/dL indicates that they may have diabetes and this should be confirmed with a follow-up test. Performed By: #### 1 0165, 496, 7600 #### [facility] [address] [address] [employer]: Mauricio Kern MD Potassium [Moles/Vol] 4.6 mmol/L Normal 3.5-5.3 [facility] Comment on above: Performed By: #### 1 0165, 496, 7600 #### [facility] [address] [address] [employer]: Mauricio Kern MD Sodium [Moles/Vol] 142 mmol/L Normal 135-146 [facility] Comment on above: Performed By: #### 1 0165, 496, 7600 #### [facility] [address] [address] [employer]: Mauricio Kern MD Urea nitrogen [Mass/Vol] 65 mg/dL High 7-25 [facility] Comment on above: Performed By: #### 1 0165, 496, 7600 #### [facility] [address] [place] [address] [employer]: Mauricio Kern MD Urea nitrogen/Creatinine [Mass ratio] 38 mg/mg High 6-22 [facility] Comment on above: Performed By: #### 1 0165, 496, 7600 #### [facility] [address] [address] [employer]: Mauricio Kern MD HEMOGLOBIN A1con 05-04-2022 HEMOGLOBIN [...] 1 0165, 496, 7600 #### [facility] [address], [address] [place] [address] [employer]: Mauricio Kern MD LIPID PANEL, [facility] [place] 04-13 Cholesterol [Mass/Vol] 163 mg/dL Normal <200 [facility] Comment on above: Order Comment: FASTI NG:YES PATIENT UNABLE TO VOID; ADVISED TO RETURN FOR COLLECTION. FASTING: YES Performed By: #### 1 0165, 496, 7600 #### [facility] [address], [address] [place] [address] [employer]: Mauricio Kern MD Cholesterol in HDL [Mass/Vol] 51 mg/dL Normal > OR = 50 [facility] Comment on above: Order Comment: FASTI NG:YES PATIENT UNABLE TO VOID; ADVISED TO RETURN FOR COLLECTION. FASTING: YES Performed By: #### 1 0165, 496, 7600 #### [facility] [address], [address] [place] [address] [employer]: Mauricio Kern MD Cholesterol in LDL [Mass/Vol] [...] LDL-C. Sean BREAUX et al. SHRUTHI. 2013;310(19): 2081-3960 (http://education.Service at Home/faq/OWA361) Performed By: #### 1 0165, 496, 7600 #### [facility] [address], [address] [place] [address] [employer]: Mauricio Kern MD Cholesterol.total/C holesterol in HDL [Mass ratio] 3.2 {ratio} Normal <5.0 [facility] Comment on above: Order Comment: FASTI NG:YES PATIENT UNABLE TO VOID; ADVISED TO RETURN FOR COLLECTION. FASTING: YES Performed By: #### 1 0165, 496, 7600 #### [facility] [address], [address] [place] [address] [employer]: Mauricio Kern MD NON HDL CHOLESTEROL 112 [...] 1 0165, 496, 7600 #### [facility] [address], [address] [place] [address] [employer] Operator: Mauricio Kern MD Triglyceride [Mass/Vol] 181 mg/dL High <150 [facility] Comment on above: Order Comment: FASTI NG:YES PATIENT UNABLE TO VOID; ADVISED TO RETURN FOR COLLECTION. FASTING: YES Performed By: #### 1 0165, 496, 7600 #### [facility] [address], [address] [place] [address] [employer]: Mauricio Kern MD PTH INTACTon 03-31-2022 PTH, Intact 111 pg/mL Critically high 15-[address] [facility] Comment on above: Performed By: #### M G, URIC, RENAL #### [facility] [address] [place] [address] Dr. Nacho Jeffery FERRITINon 03-30-2022 Ferritin [Mass/Vol] 479.0 ng/mL Critically high 8.0-252.0 [facility] Comment on above: Performed By: #### M G, URIC, RENAL #### [facility] [address] [place] [address] Dr. Nacho Jeffery HEMOGRAM AND PLATELon 2021 Hematocrit (Bld) [Volume fraction] 38.1 % Normal 36.0-48.0 The [facility] Comment on above: Performed By: #### M G, URIC, RENAL #### [facility] [address] [place] [address] Dr. Nacho Jeffery Hemoglobin (Bld) [Mass/Vol] 12.9 g/dL Normal 12.0-16.0 The [facility] Comment on above: Performed By: #### M G, URIC, RENAL #### [facility] [address] [place] [address] Dr. Nacho Jeffery MCH (RBC) [Entitic mass] 32.8 pg Normal 26.7-34.0 The [facility] Comment on above: Performed By: #### M G, URIC, RENAL #### [facility] [address] [place] [address] Dr. Nacho Jeffery MCHC (RBC) [Mass/Vol] 33.9 g/dL Normal 29.9-35.2 The [facility] Comment on above: Performed By: #### M G, URIC, RENAL #### [facility] [address] [place] [address] Dr. Nacho Jeffery MCV (RBC) [Entitic vol] 96.9 fL Normal 81.0-99.0 The [facility] Comment on above: Performed By: #### M G, URIC, RENAL #### [facility] [address] [place] [address] Dr. Nacho Jeffery PLT 191 103/ul Normal 150-450 The [facility] Comment on above: Performed By: #### M G, URIC, RENAL #### [facility] [address] [place] [address] Dr. Nacho Jeffery RBC 3.93 106/ul Critically low 4.20-5.40 The [facility] Comment on above: Performed By: #### M Jamarcus URIC, RENAL #### [facility] [address] [address] [address] Nacho Jeffery WBC 7.2 103/ul Normal 4.0-11.0 The [facility] Comment on above: Performed By: #### M Jamarcus, URIC, RENAL #### [facility] [address] [address] [address] Nacho Jeffery IRON AND TIBCon 03-30-2022 % SATURATION 21.6 % Normal The [facility] Comment on above: Performed By: #### M Jamarcus, URIC, RENAL #### [facility] [address] [place] [address] Dr. Nacho Jeffery Iron [Mass/Vol] 63.0 ug/dL Normal 50.0-170.0 The [facility] Comment on above: Performed By: #### M Jamarcus, URIC, RENAL #### [facility] [address] [place] [address] Dr. Nacho Jeffery TIBC DIRECT 292.0 ug/dL Normal 250.0-450.0 The [facility] Comment on above: Performed By: #### M Jamarcus URIC, RENAL #### [facility] [address] [address] [address] Nacho Jeffery MAGNESIUMon 03-30-2022 Magnesium [Mass/Vol] 1.7 mg/dL Critically low 1.8-2.4 The [facility] Comment on above: Performed By: #### M Jamarcus, URIC, RENAL #### [facility] [address] [address] [address] Nacho Jeffery RENAL FUNCTION PANELon 03-30 Albumin [Mass/Vol] 3.4 g/dL Normal 3.4-5.0 [facility] Comment on above: Performed By: #### M Jamarcus, URIC, RENAL #### [facility] [address] [address] [address] Nacho Jeffery Calcium [Mass/Vol] 9.3 mg/dL Normal 8.5-10.1 [facility] Comment on above: Performed By: #### M G, URIC, RENAL #### [facility] [address] [address] [address] Nacho Jeffery Chloride [Moles/Vol] 102 mmol/L Normal 98-107 [facility] Comment on above: Performed By: #### M G, URIC, RENAL #### [facility] [address] [place] [address] Dr. Nacho Jeffery CO2 [Moles/Vol] 31.7 mmol/L Normal 21.0-32.0 [facility] Comment on above: Performed By: #### M G, URIC, RENAL #### [facility] [address] [place] [address] Dr. Nacho Jeffery Creatinine [Mass/Vol] 2.05 mg/dL Critically high 0.55-1.02 [facility] Comment on above: Performed By: #### M G, URIC, RENAL #### [facility] [address] [place] [address] Dr. Nacho Jeffery EGFR-AF SYRIAN 28 mL/min/1.73m2 Critically low >=60 [facility] Comment on above: Performed By: #### M G, URIC, RENAL #### [facility] [address] [place] [address] Dr. Nacho Jeffery EGFR-NON AF SYRIAN 23 mL/min/1.73m2 Critically low >=60 [facility] Comment on above: Performed By: #### M G, URIC, RENAL #### [facility] [address] [place] [address] Dr. Nacho Jeffery Glucose [Mass/Vol] 194 mg/dL Critically high 74-106 [facility] Comment on above: Performed By: #### M G, URIC, RENAL #### [facility] [address] [place] [address] Dr. Nacho Jeffery Phosphate [Mass/Vol] 3.2 mg/dL Normal 2.6-4.7 [facility] Comment on above: Performed By: #### M G, URIC, RENAL #### [facility] [address] [place] [address] Dr. Nacho Jeffery Potassium [Moles/Vol] 4.6 mmol/L Normal 3.5-5.1 [facility] Comment on above: Performed By: #### M G, URIC, RENAL #### [facility] [address] [address] [address] Nacho Jeffery Sodium [Moles/Vol] 141 mmol/L Normal 136-145 [facility] Comment on above: Performed By: #### M G, URIC, RENAL #### [facility] [address] [address] [address] Nacho Jeffery Urea nitrogen [Mass/Vol] 64.0 mg/dL Critically high 7.0-18.0 [facility] Comment on above: Performed By: #### M G, URIC, RENAL #### [facility] [address] [place] [address] Dr. Nacho Jeffery UA RANDOM W/MICROSCOPICon BACTERIA NONE SEEN Normal NONE SEEN [facility] Comment on above: Performed By: #### M G, URIC, RENAL #### [facility] [address] [place] [address] Dr. Nacho Jeffery Bilirubin Ql (U) Negative Normal NEGATIVE The [facility] Comment on above: Performed By: #### M G, URIC, RENAL #### [facility] [address] [place] [address] Dr. Nacho Jeffery CAST NONE SEEN Normal NONE SEEN [facility] Comment on above: Performed By: #### M G, URIC, RENAL #### [facility] [address] [place] [address] Dr. Nacho Jeffery Clarity (U) CLEAR Normal CLEAR The [facility] Comment on above: Performed By: #### M G, URIC, RENAL #### [facility] [address] [place] [address] Dr. Nacho Jeffery Color (U) LT. YELLOW Normal YELLOW The [facility] Comment on above: Performed By: #### M G, URIC, RENAL #### [facility] [address] [address] [address] Nacho Jeffery Crystals LM Nom (Urine sed) NONE SEEN Normal NONE SEEN The [facility] Comment on above: Performed By: #### M G, URIC, RENAL #### [facility] [address] [address] [address] Nacho Jeffery Epithelial cells LM Ql (Urine sed) FEW Abnormal NONE SEEN /RARE The [facility] Comment on above: Performed By: #### M G, URIC, RENAL #### [facility] [address] [address] [address] Nacho Jeffery Glucose Ql (U) Negative Normal NEGATIVE The [facility] Comment on above: Performed By: #### M G, URIC, RENAL #### [facility] [address] [address] [address] Nacho Jeffery Hemoglobin Ql (U) Negative Normal NEGATIVE The [facility] Comment on above: Performed By: #### M G, URIC, RENAL #### [facility] [address] [place] [address] Dr. Nacho Jeffery Ketones Ql (U) Negative Normal NEGATIVE The [facility] Comment on above: Performed By: #### M G, URIC, RENAL #### [facility] [address] [place] [address] Dr. Nacho Jeffery LEUKOCYTES SMALL Abnormal NEGATIVE The [facility] Comment on above: Performed By: #### M G, URIC, RENAL #### [facility] [address] [address] [address] Nacho Jeffery MUCOUS NONE SEEN Normal NONE SEEN The [facility] Comment on above: Performed By: #### M G, URIC, RENAL #### [facility] [address] [address] [address] Nacho Jeffery Nitrite Ql (U) Negative Normal NEGATIVE The [facility] Comment on above: Performed By: #### M G, URIC, RENAL #### [facility] [address] [place] [address] Dr. Nacho Jeffery pH (U) 5.5 [pH] Normal 5-9 The [facility] Comment on above: Performed By: #### M G, URIC, RENAL #### [facility] [address] [place] [address] Dr. Nacho Jeffery RBC 0-2 Normal 0-2 The [facility] Comment on above: Performed By: #### M G, URIC, RENAL #### [facility] [address] [place] [address] Dr. Nacho Jeffery SPEC GRAVITY 1.015 Normal 1.005-<=1.025 The [facility] Comment on above: Performed By: #### M G, URIC, RENAL #### [facility] [address] [place] [address] Dr. Nacho Jeffery UA PROTEIN Negative Normal NEGATIVE/ TRACE The [facility] Comment on above: Performed By: #### M G, URIC, RENAL #### [facility] [address] [place] [address] Dr. Nacho Jeffery Urobilinogen Qn (U) 0.2 {Zuleyka'U}/dL Normal 0.2 - 1. 0 The [facility] Comment on above: Performed By: #### M G, URIC, RENAL #### [facility] [address] [place] [address] Dr. Nacho Jeffery WBC 5-10 Abnormal NONE SEEN The [facility] Comment on above: Performed By: #### M G, URIC, RENAL #### [facility] [address] [place] [address] Dr. Nacho Jeffery URIC ACID SERUMon 03-30-2022 Urate [Mass/Vol] 7.0 mg/dL Critically high 2.6-6.0 The [facility] Comment on above: Performed By: #### M G, URIC, RENAL #### [facility] [address] [place] [address] Dr. Nacho Jeffery URINE T PROTEIN CREAT RATIOo n 03-30-2022 Protein (U) [Mass/Vol] 7.1 mg/dL Normal <=12.0 The [facility] Comment on above: Performed By: #### U RTPCR #### [facility] [address] [place] [address] Dr. Nacho Jeffery UR PROT CREAT RAT 0.06 Normal The [facility] Comment on above: Performed By: #### U RTPCR #### [facility] [address] [address] [address] Nacho Jeffery URINE CREAT 113.23 mg/dL Normal 20.00-300.00 [facility] Comment on above: Performed By: #### U RTPCR #### [facility] [address] [place] [address] Dr. Nacho Jeffery VITAMIN D 25 OHon 03-30-2022 VIT D 25-OH 57.4 ng/mL Normal [facility] Comment on above: Performed By: #### M G, URIC, RENAL #### [facility] [address] [place], [place] [address] Dr. Nacho Jeffery VIT D RANGES SEE BELOW Normal [facility] Comment on above: Result Comment: <20 ng/mL Vit D deficient 20 - <30 ng/mL Vit D insufficient 30 - 100 ng/mL Vit D sufficient >100 ng/mL Potential Toxicity Performed By: #### M G, URIC, RENAL #### [facility] [address] [place] [address] Dr. Nacho Jeffery COMPREHENSIVE METABOLIC PANE Jared 08-30-2021 Albumin [Mass/Vol] 3.7 g/dL Normal 3.6-5.1 [facility] Comment on above: Performed By: #### 1 991, 5660 #### [facility] [address] [place] [address] [employer]: Mauricio Kern MD Albumin/Globulin [Mass ratio] 1.4 {ratio} Normal 1.0-2.5 [facility] Comment on above: Performed By: #### 1 230, 0 #### [facility] [address] [address]: Mauricio Kern MD ALP [Catalytic activity/Vol] 98 U/L Normal 37-153 [facility] Comment on above: Performed By: #### 1 023, 3070 #### [facility] [address] [employer]: Mauricio Kern MD ALT [Catalytic activity/Vol] 23 U/L Normal 6-29 [facility] Comment on above: Performed By: #### 1 023, 7600 #### [facility] of [address] [place] [address] [employer]: Mauricio Kern MD AST [Catalytic activity/Vol] 22 U/L Normal 10-35 [facility] Comment on above: Performed By: #### 1 023, 7600 #### [facility] of [address] [place] [address] [employer]: Mauricio Kern MD Bilirubin [Mass/Vol] 0.4 mg/dL Normal 0.2-1.2 [facility] Comment on above: Performed By: #### 1 023, 7600 #### [facility] of [address] [place] [address] [employer]: Mauricio Kern MD Calcium [Mass/Vol] 9.2 mg/dL Normal 8.6-10.4 [facility] Comment on above: Performed By: #### 1 023, 7600 #### [facility] of [address] [place] [address] [employer]: Mauricio Kern MD Chloride [Moles/Vol] 103 mmol/L Normal 98-110 [facility] Comment on above: Performed By: #### 1 023, 7600 #### [facility] of [address] [place] [address] [employer]: Mauricio Kern MD CO2 [Moles/Vol] 28 mmol/L Normal 20-32 [facility] Comment on above: Performed By: #### 1 023, 7600 #### [facility] of [address] [place] [address] [employer]: Mauricio Kern MD Creatinine [Mass/Vol] 2.22 mg/dL High 0.60-0.93 [facility] Comment on above: Result Comment: For patients >49 years of age, the reference limit for Creatinine is approximately 13% higher for people identified as -Palestinian. Performed By: #### 1 023, 7600 #### [facility] of [address] [place] [address] [employer]: Mauricio Kern MD eGFR NON-AFR. SYRIAN 21 mL/min/1.73m2 Low > OR = 60 [facility] Comment on above: Performed By: #### 1 023, 7600 #### [facility] [address] [place] [address] [employer]: Mauricio Kern MD GFR/1.73 sq M.predicted among blacks MDRD (S/P/Bld) [Vol rate/Area] 24 mL/min/{1.73_m2} Low > OR = 60 [facility] Comment on above: Performed By: #### 1 230, 7600 #### [facility] [address] [place] [address] [employer]: Mauricio Kern MD Globulin (S) [Mass/Vol] 2.7 g/dL Normal 1.9-3.7 [facility] Comment on above: Performed By: #### 1 230, 7600 #### [facility] [place] [address] [employer]: Mauricio Kern MD Glucose [Mass/Vol] 107 mg/dL High 65-99 [facility] Comment on above: Result Comment: Fasting reference interval For someone without known diabetes, a glucose value between 100 and 125 mg/dL is consistent with prediabetes and should be confirmed with a follow-up test. Performed By: #### 1 230, 7600 #### [facility] [address] [place] [address] [employer]: Mauricio Kern MD Potassium [Moles/Vol] 4.7 mmol/L Normal 3.5-5.3 [facility] Comment on above: Performed By: #### 1 023, 7600 #### [facility] [place] [address] [employer]: Mauricio Kern MD Protein [Mass/Vol] 6.4 g/dL Normal 6.1-8.1 [facility] Comment on above: Performed By: #### 1 230, 7600 #### [facility] of [address], [address] [place] [address] [employer]: Mauricio Kern MD Sodium [Moles/Vol] 141 mmol/L Normal 135-146 [facility] Comment on above: Performed By: #### 1 0231, 7600 #### [facility] of [address], [address] [place] [address] [employer]: Mauricio Kenr MD Urea nitrogen [Mass/Vol] 69 mg/dL High 7-25 [facility] Comment on above: Performed By: #### 1 0231, 7600 #### [facility] of [address], [address] [place] [address] [employer]: Mauricio Kern MD Urea nitrogen/Creatinine [Mass ratio] 31 mg/mg High 6-22 [facility] Comment on above: Performed By: #### 1 0231, 7600 #### [facility] of [address], [address] [place] [address] [employer]: Mauricio Kern MD [place] [address] Cholesterol [Mass/Vol] 142 mg/dL Normal <200 [facility] Comment on above: Order Comment: FASTI NG:YES FASTING: YES Performed By: #### 1 0231, 7600 #### [facility] of [address], [address] [place] [address] [employer]: Mauricio Kern MD Cholesterol in HDL [Mass/Vol] 47 mg/dL Low > OR = 50 [facility] Comment on above: Order Comment: FASTI NG:YES FASTING: YES Performed By: #### 1 0231, 7600 #### [facility] of [address], [address] [place] [address] [employer]: Mauricio Kern MD Cholesterol in LDL [Mass/Vol] [...] LDL-C. Sean BREAUX et al. SHRUTHI. 2013;310(19): 9645-1776 (http://education.Service at Home/faq/FUP945) Performed By: #### 1 023, 7600 #### [facility] [address], [address] [place] [address] [employer]: Mauricio Kern MD Cholesterol.total/C holesterol in HDL [Mass ratio] 3.0 {ratio} Normal <5.0 [facility] Comment on above: Order Comment: FASTI NG:YES FASTING: YES Performed By: #### 1 023, 0 #### [facility] [address], [address] [place] [address] [employer]: Mauricio Kern MD NON HDL CHOLESTEROL 95 mg/dL (calc) Normal <130 [facility] Comment on above: Order Comment: FASTI NG:YES FASTING: YES Result Comment: For patients with diabetes plus 1 major ASCVD risk factor, treating to a non-HDL-C goal of <100 mg/dL (LDL-C of <70 mg/dL) is considered a therapeutic option. Performed By: #### 1 023, 0 #### [facility] [address], [address] [place] [address] [employer]: Mauricio Kern MD Triglyceride [Mass/Vol] 188 mg/dL High <150 [facility] Comment on above: Order Comment: FASTI NG:YES FASTING: YES Performed By: #### 1 023, 7600 #### [facility] [address] [place] [address] [employer]: Mauricio Kern MD BASIC METABOLIC PANELon 05- Calcium [Mass/Vol] 10.0 mg/dL Normal 8.6-10.3 [facility] Comment on above: Performed By: #### 0 0071 #### [facility] [address] [place] [address], [place] Chloride [Moles/Vol] 101 mmol/L Normal 98-107 [facility] Comment on above: Performed By: #### 0 0071 #### [facility] [address] [place] [address], [place] CO2 [Moles/Vol] 28 mmol/L Normal 21-31 [facility] Comment on above: Performed By: #### 0 0071 #### [facility] [address] [place] [address], [place] Creatinine [Mass/Vol] 1.96 mg/dL High 0.60-1.20 [facility] Comment on above: Performed By: #### 0 0071 #### [facility] [address] [place] [address], [facility] eGFR- 30 ml/min/1.73sq m Abnormal >60 [facility] Comment on above: Result Comment: Calc ulation may not be valid for patients over 70 years Performed By: #### 0 0071 #### [facility] [address] [place] [address], [facility] eGFR- non- 24 ml/min/1.73sq m Abnormal >60 [facility] Comment on above: Result Comment: Calc ulation may not be valid for patients over 70 years Performed By: #### 0 0071 #### [facility] [address] [place] [address], [place] Glucose [Mass/Vol] 171 mg/dL High 70-100 [facility] Comment on above: Performed By: #### 0 0071 #### [facility] [address] [place] [address], [place] Potassium [Moles/Vol] 3.9 mmol/L Normal 3.5-5.1 [facility] Comment on above: Performed By: #### 0 0071 #### [facility] [address] [place] [address], [facility] Sodium [Moles/Vol] 139 mmol/L Normal 136-145 [facility] Comment on above: Performed By: #### 0 0071 #### [facility] [address] [place] [address], [facility] Urea nitrogen [Mass/Vol] 66 mg/dL High 7-25 [facility] Comment on above: Performed By: #### 0 0071 #### [facility] [address] [place] [address], [facility] Cardiovascular Lab Reporton 03-30-2021 Cardiovascular Lab Report [facility] Patient Name: Adore Wolff [facility] MR #: [id number] Physician: Moe Parham, Department of M.D. Medicine Service Date: 03/30/2021 Division of Birthdate: 1940 Cardiology Room #: Adult Cardiovascular Services [facility] [address] [place], [place] [address] Cardiovascular Laboratory Report FINAL IMPRESSIONS: 1. Moderate [...] inhibitor/receptor micki. 4. Follow up with [facility] Cardiology in the next 2 [...] the left radial artery was obtained. A 6-Spanish glide sheath was inserted without difficulty. Bilateral selective coronary angiography was performed using JL4 and a 4-Spanish 3DRC catheter. After reviewing the images and [...] Parham M.D. Date Trans: 03/30/2021 03:19 P/molly [id number] cc: Fernie Clark M.D. [address] [place] [address] Normal [facility] Vital Signs Date Time Vital Sign Value Performing Clinician Facility 12-26-2024 09:33-0500 Body temperature 97.7 [degF] Fernie Furlong DO Work Phone: [facility] [employer] [facility] 12-26-2024 09:33-0500 Diastolic blood pressure 78 mm[Hg] Fernie Furlong DO Work Phone: [facility] [employer] [facility] 12-26-2024 09:33-0500 Heart rate 64 /min Fernie Furlong DO Work Phone: [facility] [employer] [facility] 12-26-2024 09:33-0500 Respiratory rate 18 /min Fernie Furlong DO Work Phone: [facility] [employer] [facility] 12-26-2024 09:33-0500 SaO2% (BldA) [Mass fraction] 98 % Fernie Furlong DO Work Phone: [facility] [employer] [facility] 12-26-2024 09:33-0500 Systolic blood pressure 178 mm[Hg] Fernie Furlong DO Work Phone: [facility] 12-19-2024 11:12-0500 Body mass index (BMI) [Ratio] 43.27 kg/m2 Fernie Furlong DO Work Phone: [facility] [employer] [facility] 12-19-2024 11:12-0500 Body temperature 97.7 [degF] Fernie Furlong DO Work Phone: [facility] [employer] [facility] 12-19-2024 11:12-0500 Body weight 117.94 kg Fernie Furlong DO Work Phone: [facility] 12-19-2024 11:12-0500 Heart rate 60 /min Fernie Furlong DO Work Phone: [facility] [employer] [facility] 12-19-2024 11:12-0500 Respiratory rate 18 /min Fernie Furlong DO Work Phone: [facility] 12-19-2024 11:12-0500 SaO2% (BldA) [Mass fraction] 95 % Fernie Furlong DO Work Phone: [facility] 11-04-2024 09:42-0500 Body height 165.1 cm Pfo 1 [facility] 11-04-2024 09:42-0500 Body mass index (BMI) [Ratio] 45.26 kg/m2 Pfo 1 [facility] 11-04-2024 09:42-0500 Body temperature 97.5 [degF] Pfo 1 [facility] 11-04-2024 09:42-0500 Body weight 123.38 kg Pfo 1 [facility] 11-04-2024 09:42-0500 Diastolic blood pressure 65 mm[Hg] Pfo 1 [facility] 11-04-2024 09:42-0500 Heart rate 65 /min Pfo 1 [facility] 11-04-2024 09:42-0500 Respiratory rate 18 /min Pfo 1 [facility] 11-04-2024 09:42-0500 SaO2% (BldA) [Mass fraction] 98 % Pfo 1 [facility] 11-04-2024 09:42-0500 Systolic blood pressure 153 mm[Hg] Pfo 1 [facility] 10-07-2024 09:29-0500 Body height 165.1 cm Pfo 2 [facility] 10-07-2024 09:29-0500 Body mass index (BMI) [Ratio] 45.26 kg/m2 Pfo 2 [facility] 10-07-2024 09:29-0500 Body temperature 97.59 [degF] Pfo 2 [facility] 10-07-2024 09:29-0500 Body weight 123.38 kg Pfo 2 [facility] 10-07-2024 09:29-0500 Diastolic blood pressure 63 mm[Hg] Pfo 2 [facility] 10-07-2024 09:29-0500 Heart rate 72 /min Pfo 2 [facility] 10-07-2024 09:29-0500 Respiratory rate 18 /min Pfo 2 [facility] 10-07-2024 09:29-0500 SaO2% (BldA) [Mass fraction] 94 % Pfo 2 [facility] 10-07-2024 09:29-0500 Systolic blood pressure 155 mm[Hg] Pfo 2 [facility] 10-01-2024 09:24-0500 Body height 165.1 cm Pfo 5 [facility] 10-01-2024 09:24-0500 Body mass index (BMI) [Ratio] 45.26 kg/m2 Pfo 5 [facility] 10-01-2024 09:24-0500 Body temperature 97.39 [degF] Pfo 5 [facility] 10-01-2024 09:24-0500 Body weight 123.38 kg Pfo 5 [facility] 10-01-2024 09:24-0500 Diastolic blood pressure 56 mm[Hg] Pfo 5 [facility] 10-01-2024 09:24-0500 Heart rate 76 /min Pfo 5 [facility] 10-01-2024 09:24-0500 Respiratory rate 16 /min Pfo 5 [facility] 10-01-2024 09:24-0500 SaO2% (BldA) [Mass fraction] 96 % Pfo 5 [facility] 10-01-2024 09:24-0500 Systolic blood pressure 153 mm[Hg] Pfo 5 [facility] 09-10-2024 09:21-0400 Body temperature 97.7 [degF] Pfo 5 [facility] 09-10-2024 09:21-0400 Diastolic blood pressure 61 mm[Hg] Pfo 5 [facility] 09-10-2024 09:21-0400 Heart rate 68 /min Pfo 5 [facility] 09-10-2024 09:21-0400 Respiratory rate 18 /min Pfo 5 [facility] 09-10-2024 09:21-0400 SaO2% (BldA) [Mass fraction] 99 % Pfo 5 [facility] 09-10-2024 09:21-0400 Systolic blood pressure 164 mm[Hg] Pfo 5 [facility] 08-27-2024 09:27-0400 Body height 165.1 cm Pfo 5 [facility] 08-27-2024 09:27-0400 Body mass index (BMI) [Ratio] 46.1 kg/m2 Pfo 5 [facility] 08-27-2024 09:27-0400 Body temperature 97.39 [degF] Pfo 5 [facility] 08-27-2024 09:27-0400 Body weight 125.65 kg Pfo 5 [facility] 08-27-2024 09:27-0400 Diastolic blood pressure 86 mm[Hg] Pfo 5 [facility] 08-27-2024 09:27-0400 Heart rate 75 /min Pfo 5 [facility] 08-27-2024 09:27-0400 Respiratory rate 16 /min Pfo 5 [facility] 08-27-2024 09:27-0400 SaO2% (BldA) [Mass fraction] 98 % Pfo 5 [facility] 08-27-2024 09:27-0400 Systolic blood pressure 151 mm[Hg] Pfo 5 [facility] 08-20-2024 09:17-0400 Body height 165.1 cm Pfo 5 [facility] 08-20-2024 09:17-0400 Body mass index (BMI) [Ratio] 46.1 kg/m2 Pfo 5 [facility] 08-20-2024 09:17-0400 Body temperature 97.59 [degF] Pfo 5 [facility] 08-20-2024 09:17-0400 Body weight 125.65 kg Pfo 5 [facility] 08-20-2024 09:17-0400 Diastolic blood pressure 67 mm[Hg] Pfo 5 [facility] 08-20-2024 09:17-0400 Heart rate 66 /min Pfo 5 [facility] 08-20-2024 09:17-0400 Respiratory rate 16 /min Pfo 5 [facility] 08-20-2024 09:17-0400 SaO2% (BldA) [Mass fraction] 99 % Pfo 5 [facility] 08-20-2024 09:17-0400 Systolic blood pressure 167 mm[Hg] Pfo 5 [facility] 08-13-2024 09:20-0400 Body height 165.1 cm Pfo 4 [facility] 08-13-2024 09:20-0400 Body mass index (BMI) [Ratio] 46.1 kg/m2 Pfo 4 [facility] 08-13-2024 09:20-0400 Body temperature 97.59 [degF] Pfo 4 [facility] 08-13-2024 09:20-0400 Body weight 125.65 kg Pfo 4 [facility] 08-13-2024 09:20-0400 Diastolic blood pressure 65 mm[Hg] Pfo 4 [facility] 08-13-2024 09:20-0400 Heart rate 70 /min Pfo 4 [facility] 08-13-2024 09:20-0400 Respiratory rate 16 /min Pfo 4 [facility] 08-13-2024 09:20-0400 SaO2% (BldA) [Mass fraction] 96 % Pfo 4 [facility] 08-13-2024 09:20-0400 Systolic blood pressure 169 mm[Hg] Pfo 4 [facility] 08-06-2024 09:27-0400 Body height 165.1 cm Pfo 5 [facility] 08-06-2024 09:27-0400 Body mass index (BMI) [Ratio] 46.1 kg/m2 Pfo 5 [facility] 08-06-2024 09:27-0400 Body temperature 97.5 [degF] Pfo 5 [facility] 08-06-2024 09:27-0400 Body weight 125.65 kg Pfo 5 [facility] 08-06-2024 09:27-0400 Diastolic blood pressure 54 mm[Hg] Pfo 5 [facility] 08-06-2024 09:27-0400 Heart rate 73 /min Pfo 5 [facility] 08-06-2024 09:27-0400 Respiratory rate 16 /min Pfo 5 [facility] 08-06-2024 09:27-0400 SaO2% (BldA) [Mass fraction] 95 % Pfo 5 [facility] 08-06-2024 09:27-0400 Systolic blood pressure 160 mm[Hg] Pfo 5 [facility] 07-30-2024 09:22-0400 Body height 165.1 cm Pfo 5 [facility] 07-30-2024 09:22-0400 Body mass index (BMI) [Ratio] 46.26 kg/m2 Pfo 5 [facility] 07-30-2024 09:22-0400 Body temperature 97.2 [degF] Pfo 5 [facility] 07-30-2024 09:22-0400 Body weight 126.1 kg Pfo 5 [facility] 07-30-2024 09:22-0400 Diastolic blood pressure 63 mm[Hg] Pfo 5 [facility] 07-30-2024 09:22-0400 Heart rate 68 /min Pfo 5 [facility] 07-30-2024 09:22-0400 Respiratory rate 16 /min Pfo 5 [facility] 07-30-2024 09:22-0400 SaO2% (BldA) [Mass fraction] 94 % Pfo 5 [facility] 07-30-2024 09:22-0400 Systolic blood pressure 148 mm[Hg] Pfo 5 [facility] 07-23-2024 09:25-0400 Body height 165.1 cm Pfo 5 [facility] 07-23-2024 09:25-0400 Body mass index (BMI) [Ratio] 46.26 kg/m2 Pfo 5 [facility] 07-23-2024 09:25-0400 Body weight 126.1 kg Pfo 5 [facility] 07-23-2024 09:25-0400 Diastolic blood pressure 55 mm[Hg] Pfo 5 [facility] 07-23-2024 09:25-0400 Heart rate 62 /min Pfo 5 [facility] 07-23-2024 09:25-0400 Respiratory rate 16 /min Pfo 5 [facility] 07-23-2024 09:25-0400 SaO2% (BldA) [Mass fraction] 97 % Pfo 5 [facility] 07-23-2024 09:25-0400 Systolic blood pressure 155 mm[Hg] Pfo 5 [facility] 07-16-2024 09:44-0400 Body height 165.1 cm Pfo 5 [facility] 07-16-2024 09:44-0400 Body mass index (BMI) [Ratio] 46.26 kg/m2 Pfo 5 [facility] 07-16-2024 09:44-0400 Body temperature 97.7 [degF] Pfo 5 [facility] 07-16-2024 09:44-0400 Body weight 126.1 kg Pfo 5 [facility] 07-16-2024 09:44-0400 Diastolic blood pressure 54 mm[Hg] Pfo 5 [facility] 07-16-2024 09:44-0400 Heart rate 70 /min Pfo 5 [facility] 07-16-2024 09:44-0400 Respiratory rate 16 /min Pfo 5 [facility] 07-16-2024 09:44-0400 SaO2% (BldA) [Mass fraction] 100 % Pfo 5 [facility] 07-16-2024 09:44-0400 Systolic blood pressure 160 mm[Hg] Pfo 5 [facility] 07-09-2024 09:49-0400 Body height 165.1 cm Pfo 1 [facility] 07-09-2024 09:49-0400 Body mass index (BMI) [Ratio] 46.26 kg/m2 Pfo 1 [facility] 07-09-2024 09:49-0400 Body temperature 98.2 [degF] Pfo 1 [facility] 07-09-2024 09:49-0400 Body weight 126.1 kg Pfo 1 [facility] 07-09-2024 09:49-0400 Diastolic blood pressure 52 mm[Hg] Pfo 1 [facility] 07-09-2024 09:49-0400 Heart rate 78 /min Pfo 1 [facility] 07-09-2024 09:49-0400 Respiratory rate 16 /min Pfo 1 [facility] 07-09-2024 09:49-0400 SaO2% (BldA) [Mass fraction] 96 % Pfo 1 [facility] 07-09-2024 09:49-0400 Systolic blood pressure 147 mm[Hg] Pfo 1 [facility] 07-02-2024 09:34-0400 Body height 165.1 cm Pfo 1 [facility] 07-02-2024 09:34-0400 Body mass index (BMI) [Ratio] 46.26 kg/m2 Pfo 1 [facility] 07-02-2024 09:34-0400 Body temperature 97.39 [degF] Pfo 1 [facility] 07-02-2024 09:34-0400 Body weight 126.1 kg Pfo 1 [facility] 07-02-2024 09:34-0400 Diastolic blood pressure 60 mm[Hg] Pfo 1 [facility] 07-02-2024 09:34-0400 Heart rate 66 /min Pfo 1 [facility] 07-02-2024 09:34-0400 Respiratory rate 16 /min Pfo 1 [facility] 07-02-2024 09:34-0400 SaO2% (BldA) [Mass fraction] 98 % Pfo 1 [facility] 07-02-2024 09:34-0400 Systolic blood pressure 153 mm[Hg] Pfo 1 [facility] 06-25-2024 09:26-0400 Body height 165.1 cm Pfo 7 [facility] 06-25-2024 09:26-0400 Body mass index (BMI) [Ratio] 46.26 kg/m2 Pfo 7 [facility] 06-25-2024 09:26-0400 Body temperature 97.39 [degF] Pfo 7 [facility] 06-25-2024 09:26-0400 Body weight 126.1 kg Pfo 7 [facility] 06-25-2024 09:26-0400 Diastolic blood pressure 66 mm[Hg] Pfo 7 [facility] 06-25-2024 09:26-0400 Heart rate 83 /min Pfo 7 [facility] 06-25-2024 09:26-0400 Respiratory rate 16 /min Pfo 7 [facility] 06-25-2024 09:26-0400 SaO2% (BldA) [Mass fraction] 98 % Pfo 7 [facility] 06-25-2024 09:26-0400 Systolic blood pressure 156 mm[Hg] Pfo 7 [facility] 06-18-2024 09:30-0400 Body height 165.1 cm Pfo 1 [facility] 06-18-2024 09:30-0400 Body mass index (BMI) [Ratio] 46.1 kg/m2 Pfo 1 [facility] 06-18-2024 09:30-0400 Body temperature 97.5 [degF] Pfo 1 [facility] 06-18-2024 09:30-0400 Body weight 125.65 kg Pfo 1 [facility] 06-18-2024 09:30-0400 Diastolic blood pressure 46 mm[Hg] Pfo 1 [facility] 06-18-2024 09:30-0400 Heart rate 72 /min Pfo 1 [facility] 06-18-2024 09:30-0400 Respiratory rate 20 /min Pfo 1 [facility] 06-18-2024 09:30-0400 SaO2% (BldA) [Mass fraction] 95 % Pfo 1 [facility] 06-18-2024 09:30-0400 Systolic blood pressure 148 mm[Hg] Pfo 1 [facility] 06-11-2024 09:21-0400 Body height 165.1 cm Pfo 1 [facility] 06-11-2024 09:21-0400 Body mass index (BMI) [Ratio] 46.26 kg/m2 Pfo 1 [facility] 06-11-2024 09:21-0400 Body temperature 97.59 [degF] Pfo 1 [facility] 06-11-2024 09:21-0400 Body weight 126.1 kg Pfo 1 [facility] 06-11-2024 09:21-0400 Diastolic blood pressure 60 mm[Hg] Pfo 1 [facility] 06-11-2024 09:21-0400 Heart rate 88 /min Pfo 1 [facility] 06-11-2024 09:21-0400 Respiratory rate 20 /min Pfo 1 [facility] 06-11-2024 09:21-0400 SaO2% (BldA) [Mass fraction] 96 % Pfo 1 [facility] 06-11-2024 09:21-0400 Systolic blood pressure 147 mm[Hg] Pfo 1 [facility] 05-28-2024 09:34-0400 Body height 165.1 cm Pfo 1 [facility] 05-28-2024 09:34-0400 Body mass index (BMI) [Ratio] 46.43 kg/m2 Pfo 1 [facility] 05-28-2024 09:34-0400 Body temperature 97.5 [degF] Pfo 1 [facility] 05-28-2024 09:34-0400 Body weight 126.55 kg Pfo 1 [facility] 05-28-2024 09:34-0400 Diastolic blood pressure 66 mm[Hg] Pfo 1 [facility] 05-28-2024 09:34-0400 Heart rate 71 /min Pfo 1 [facility] 05-28-2024 09:34-0400 Respiratory rate 20 /min Pfo 1 [facility] 05-28-2024 09:34-0400 SaO2% (BldA) [Mass fraction] 99 % Pfo 1 [facility] 05-28-2024 09:34-0400 Systolic blood pressure 152 mm[Hg] Pfo 1 [facility] 05-27-2024 13:09-0400 Body height 165.1 cm Fernie Furlong DO Work Phone: [facility] 05-27-2024 13:09-0400 Body mass index (BMI) [Ratio] 46.64 kg/m2 Fernie Furlong DO Work Phone: [facility] 05-27-2024 13:09-0400 Body temperature 97.9 [degF] Fernie Furlong DO Work Phone: [facility] 05-27-2024 13:09-0400 Body weight 127.14 kg Fernie Furlong DO Work Phone: [facility] 05-27-2024 13:09-0400 Diastolic blood pressure 60 mm[Hg] Fernie Furlong DO Work Phone: [facility] 05-27-2024 13:09-0400 Heart rate 74 /min Fernie Furlong DO Work Phone: [facility] 05-27-2024 13:09-0400 Respiratory rate 18 /min Fernie Furlong DO Work Phone: [facility] 05-27-2024 13:09-0400 SaO2% (BldA) [Mass fraction] 94 % Fernie Furlong DO Work Phone: [facility] 05-27-2024 13:09-0400 Systolic blood pressure 140 mm[Hg] Fernie Furlong DO Work Phone: [facility] 05-21-2024 09:27-0400 Body height 165.1 cm Pfo 1 [facility] 05-21-2024 09:27-0400 Body mass index (BMI) [Ratio] 46.43 kg/m2 Pfo 1 [facility] 05-21-2024 09:27-0400 Body temperature 97.7 [degF] Pfo 1 [facility] 05-21-2024 09:27-0400 Body weight 126.55 kg Pfo 1 [facility] 05-21-2024 09:27-0400 Diastolic blood pressure 46 mm[Hg] Pfo 1 [facility] 05-21-2024 09:27-0400 Heart rate 63 /min Pfo 1 [facility] 05-21-2024 09:27-0400 Respiratory rate 20 /min Pfo 1 [facility] 05-21-2024 09:27-0400 SaO2% (BldA) [Mass fraction] 95 % Pfo 1 [facility] 05-21-2024 09:27-0400 Systolic blood pressure 167 mm[Hg] Pfo 1 [facility] 05-14-2024 09:15-0400 Body height 165.1 cm Pfo 1 [facility] 05-14-2024 09:15-0400 Body mass index (BMI) [Ratio] 46.43 kg/m2 Pfo 1 [facility] 05-14-2024 09:15-0400 Body temperature 97.81 [degF] Pfo 1 [facility] 05-14-2024 09:15-0400 Body weight 126.55 kg Pfo 1 [facility] 05-14-2024 09:15-0400 Diastolic blood pressure 59 mm[Hg] Pfo 1 [facility] 05-14-2024 09:15-0400 Heart rate 72 /min Pfo 1 [facility] 05-14-2024 09:15-0400 Respiratory rate 20 /min Pfo 1 [facility] 05-14-2024 09:15-0400 SaO2% (BldA) [Mass fraction] 95 % Pfo 1 [facility] 05-14-2024 09:15-0400 Systolic blood pressure 161 mm[Hg] Pfo 1 [facility] 05-07-2024 09:25-0400 Body height 165.1 cm Pfo 1 [facility] 05-07-2024 09:25-0400 Body mass index (BMI) [Ratio] 47.09 kg/m2 Pfo 1 [facility] 05-07-2024 09:25-0400 Body temperature 98.4 [degF] Pfo 1 [facility] 05-07-2024 09:25-0400 Body weight 128.37 kg Pfo 1 [facility] 05-07-2024 09:25-0400 Diastolic blood pressure 47 mm[Hg] Pfo 1 [facility] 05-07-2024 09:25-0400 Heart rate 69 /min Pfo 1 [facility] 05-07-2024 09:25-0400 Respiratory rate 20 /min Pfo 1 [facility] 05-07-2024 09:25-0400 SaO2% (BldA) [Mass fraction] 95 % Pfo 1 [facility] 05-07-2024 09:25-0400 Systolic blood pressure 169 mm[Hg] Pfo 1 [facility] 05-01-2024 13:52-0400 Body height 165.1 cm [facility] 05-01-2024 13:52-0400 Body mass index (BMI) [Ratio] 47.5 kg/m2 [facility] 05-01-2024 13:52-0400 Body temperature 96.7 [degF] [facility] 05-01-2024 13:52-0400 Body weight 129.38 kg [facility] 05-01-2024 13:52-0400 Diastolic blood pressure 60 mm[Hg] [facility] 05-01-2024 13:52-0400 Heart rate 76 /min [facility] 05-01-2024 13:52-0400 Respiratory rate 18 /min [facility] 05-01-2024 13:52-0400 SaO2% (BldA) [Mass fraction] 95 % [facility] 05-01-2024 13:52-0400 Systolic blood pressure 130 mm[Hg] [facility] 04-30-2024 09:19-0400 Body height 165.1 cm Pfo 1 [facility] 04-30-2024 09:19-0400 Body mass index (BMI) [Ratio] 47.26 kg/m2 Pfo 1 [facility] 04-30-2024 09:19-0400 Body temperature 97.81 [degF] Pfo 1 [facility] 04-30-2024 09:19-0400 Body weight 128.82 kg Pfo 1 [facility] 04-30-2024 09:19-0400 Diastolic blood pressure 68 mm[Hg] Pfo 1 [facility] 04-30-2024 09:19-0400 Heart rate 65 /min Pfo 1 [facility] 04-30-2024 09:19-0400 Respiratory rate 20 /min Pfo 1 [facility] 04-30-2024 09:19-0400 SaO2% (BldA) [Mass fraction] 93 % Pfo 1 [facility] 04-30-2024 09:19-0400 Systolic blood pressure 175 mm[Hg] Pfo 1 [facility] 04-23-2024 09:28-0400 Body height 165.1 cm Pfo 6 [facility] 04-23-2024 09:28-0400 Body mass index (BMI) [Ratio] 46.93 kg/m2 Pfo 6 [facility] 04-23-2024 [id number]:[id number] Body temperature 97.7 [degF] Pfo 6 [facility] 04-23-2024 09:[id number] Body weight 127.91 kg Pfo 6 [facility] 04-23-2024 09:280400 Diastolic blood pressure 56 mm[Hg] Pfo 6 [facility] 04-23-2024 09:[id number] Heart rate 69 /min Pfo 6 [facility] 04-23-2024 09:[id number] Respiratory rate 24 /min Pfo 6 [facility] 04-23-2024 09:280400 SaO2% (BldA) [Mass fraction] 98 % Pfo 6 [facility] 04-23-2024 09:280400 Systolic blood pressure 177 mm[Hg] Pfo 6 [facility] 04-16-2024 09:190400 Body height 165.1 cm Pfo 6 [facility] 04-16-2024 09:19-0400 Body mass index (BMI) [Ratio] 46.76 kg/m2 Pfo 6 [facility] 04-16-2024 09:190400 Body temperature 97.39 [degF] Pfo 6 [facility] 04-16-2024 09:190400 Body weight 127.46 kg Pfo 6 [facility] 04-16-2024 09:190400 Diastolic blood pressure 65 mm[Hg] Pfo 6 [facility] 04-16-2024 09:190400 Heart rate 72 /min Pfo 6 [facility] 04-16-2024 09:190400 Respiratory rate 18 /min Pfo 6 [facility] 04-16-2024 09:190400 SaO2% (BldA) [Mass fraction] 96 % Pfo 6 [facility] 04-16-2024 09:19-0400 Systolic blood pressure 177 mm[Hg] Pfo 6 [facility] 04-09-2024 09:33-0400 Body height 165.1 cm Pfo 6 [facility] 04-09-2024 09:33-0400 Body mass index (BMI) [Ratio] 46.59 kg/m2 Pfo 6 [facility] 04-09-2024 09:33-0400 Body temperature 97.59 [degF] Pfo 6 [facility] 04-09-2024 09:33-0400 Body weight 127.01 kg Pfo 6 [facility] 04-09-2024 09:33-0400 Diastolic blood pressure 66 mm[Hg] Pfo 6 [facility] 04-09-2024 09:33-0400 Heart rate 66 /min Pfo 6 [facility] 04-09-2024 09:33-0400 Respiratory rate 20 /min Pfo 6 [facility] 04-09-2024 09:33-0400 SaO2% (BldA) [Mass fraction] 96 % Pfo 6 [facility] 04-09-2024 09:33-0400 Systolic blood pressure 169 mm[Hg] Pfo 6 [facility] 04-02-2024 09:24-0400 Body height 165.1 cm Pfo 4 [facility] 04-02-2024 09:24-0400 Body mass index (BMI) [Ratio] 46.43 kg/m2 Pfo 4 [facility] 04-02-2024 09:24-0400 Body temperature 97.7 [degF] Pfo 4 [facility] 04-02-2024 09:24-0400 Body weight 126.55 kg Pfo 4 [facility] 04-02-2024 09:24-0400 Diastolic blood pressure 58 mm[Hg] Pfo 4 [facility] 04-02-2024 09:24-0400 Heart rate 71 /min Pfo 4 [facility] 04-02-2024 09:24-0400 Respiratory rate 20 /min Pfo 4 [facility] 04-02-2024 09:24-0400 SaO2% (BldA) [Mass fraction] 96 % Pfo 4 [facility] 04-02-2024 09:24-0400 Systolic blood pressure 168 mm[Hg] Pfo 4 [facility] 03-26-2024 09:32-0400 Body height 165.1 cm Pfo 6 [facility] 03-26-2024 09:32-0400 Body mass index (BMI) [Ratio] 46.1 kg/m2 Pfo 6 [facility] 03-26-2024 09:32-0400 Body temperature 97.7 [degF] Pfo 6 [facility] 03-26-2024 09:32-0400 Body weight 125.65 kg Pfo 6 [facility] 03-26-2024 09:32-0400 Diastolic blood pressure 67 mm[Hg] Pfo 6 [facility] 03-26-2024 09:32-0400 Heart rate 67 /min Pfo 6 [facility] 03-26-2024 09:32-0400 Respiratory rate 20 /min Pfo 6 [facility] 03-26-2024 09:32-0400 SaO2% (BldA) [Mass fraction] 95 % Pfo 6 [facility] 03-26-2024 09:32-0400 Systolic blood pressure 152 mm[Hg] Pfo 6 [facility] 03-19-2024 09:37-0400 Body height 165.1 cm Pfo 4 [facility] 03-19-2024 09:37-0400 Body mass index (BMI) [Ratio] 45.93 kg/m2 Pfo 4 [facility] 03-19-2024 09:37-0400 Body temperature 97.9 [degF] Pfo 4 [facility] 03-19-2024 09:37-0400 Body weight 125.19 kg Pfo 4 [facility] 03-19-2024 09:37-0400 Diastolic blood pressure 67 mm[Hg] Pfo 4 [facility] 03-19-2024 09:37-0400 Heart rate 65 /min Pfo 4 [facility] 03-19-2024 09:37-0400 Respiratory rate 20 /min Pfo 4 [facility] 03-19-2024 09:37-0400 SaO2% (BldA) [Mass fraction] 93 % Pfo 4 [facility] 03-19-2024 09:37-0400 Systolic blood pressure 180 mm[Hg] Pfo 4 [facility] 03-12-2024 09:30-0400 Body height 165.1 cm Pfo 7 [facility] 03-12-2024 09:30-0400 Body mass index (BMI) [Ratio] 45.83 kg/m2 Pfo 7 [facility] 03-12-2024 09:30-0400 Body temperature 97.5 [degF] Pfo 7 [facility] 03-12-2024 09:30-0400 Body weight 124.92 kg Pfo 7 [facility] 03-12-2024 09:30-0400 Diastolic blood pressure 55 mm[Hg] Pfo 7 [facility] 03-12-2024 09:30-0400 Heart rate 60 /min Pfo 7 [facility] 03-12-2024 09:30-0400 Respiratory rate 20 /min Pf 7 [facility] 03-12-2024 09:30-0400 SaO2% (BldA) [Mass fraction] 95 % Pf 7 [facility] 03-12-2024 09:30-0400 Systolic blood pressure 181 mm[Hg] Pfo 7 [facility] 02-25-2024 14:54-0400 Body height 165.1 cm Fernie Furlong DO Work Phone: [facility] 02-25-2024 14:54-0400 Body mass index (BMI) [Ratio] 44.56 kg/m2 Fernie Furlong DO Work Phone: [facility] 02-25-2024 14:54-0400 Body temperature 98.29 [degF] Fernie Furlong DO Work Phone: [facility] 02-25-2024 14:54-0400 Body weight 121.47 kg Fernie Furlong DO Work Phone: [facility] 02-25-2024 14:54-0400 Diastolic blood pressure 70 mm[Hg] Fernie Furlong DO Work Phone: [facility] 02-25-2024 14:54-0400 Heart rate 60 /min Fernie Furlong DO Work Phone: [facility] [employer] [facility] 02-25-2024 14:54-0400 SaO2% (BldA) [Mass fraction] 95 % Fernie Clark DO Work Phone: [facility] [employer] [facility] 02-25-2024 14:54-0400 Systolic blood pressure 140 mm[Hg] Fernie Clark DO Work Phone: [facility] [employer] [facility] 02-13-2024 09:26-0400 Body height 165.1 cm Pfo 6 [facility] 02-13-2024 09:26-0400 Body mass index (BMI) [Ratio] 44.6 kg/m2 Pfo 6 [facility] 02-13-2024 09:26-0400 Body temperature 97.7 [degF] Pfo 6 [facility] 02-13-2024 09:26-0400 Body weight 121.56 kg Pfo 6 [facility] 02-13-2024 09:26-0400 Diastolic blood pressure 60 mm[Hg] Pfo 6 [facility] 02-13-2024 09:26-0400 Heart rate 60 /min Pfo 6 [facility] [employer] [facility] 02-13-2024 09:26-0400 Respiratory rate 18 /min Pfo 6 [facility] 02-13-2024 09:26-0400 SaO2% (BldA) [Mass fraction] 94 % Pfo 6 [facility] [employer] [facility] 02-13-2024 09:26-0400 Systolic blood pressure 162 mm[Hg] Pfo 6 [facility] 02-06-2024 09:30-0400 Body height 165.1 cm Pfo 6 [facility] 02-06-2024 09:30-0400 Body mass index (BMI) [Ratio] 44.6 kg/m2 Pfo 6 [facility] 02-06-2024 09:30-0400 Body temperature 97.9 [degF] Pfo 6 [facility] 02-06-2024 09:30-0400 Body weight 121.56 kg Pfo 6 [facility] 02-06-2024 09:30-0400 Diastolic blood pressure 75 mm[Hg] Pfo 6 [facility] 02-06-2024 09:30-0400 Heart rate 60 /min Pfo 6 [facility] 02-06-2024 09:30-0400 Respiratory rate 188 /min Pfo 6 [facility] 02-06-2024 09:30-0400 SaO2% (BldA) [Mass fraction] 98 % Pfo 6 [facility] 02-06-2024 09:30-0400 Systolic blood pressure 176 mm[Hg] Pfo 6 [facility] 01-30-2024 09:25-0400 Body height 165.1 cm Pfo 6 [facility] 01-30-2024 09:25-0400 Body mass index (BMI) [Ratio] 44.93 kg/m2 Pfo 6 [facility] 01-30-2024 09:25-0400 Body temperature 97.7 [degF] Pfo 6 [facility] 01-30-2024 09:25-0400 Body weight 122.47 kg Pfo 6 [facility] 01-30-2024 09:25-0400 Diastolic blood pressure 60 mm[Hg] Pfo 6 [facility] 01-30-2024 09:25-0400 Heart rate 56 /min Pfo 6 [facility] 01-30-2024 09:25-0400 Respiratory rate 18 /min Pfo 6 [facility] 01-30-2024 09:25-0400 SaO2% (BldA) [Mass fraction] 93 % Pfo 6 [facility] 01-30-2024 09:25-0400 Systolic blood pressure 168 mm[Hg] Pfo 6 [facility] 01-23-2024 09:33-0400 Body height 165.1 cm Pfo 6 [facility] 01-23-2024 09:33-0400 Body mass index (BMI) [Ratio] 45.93 kg/m2 Pfo 6 [facility] 01-23-2024 09:33-0400 Body temperature 97.39 [degF] Pfo 6 [facility] 01-23-2024 09:33-0400 Body weight 125.19 kg Pfo 6 [facility] 01-23-2024 09:33-0400 Diastolic blood pressure 73 mm[Hg] Pfo 6 [facility] 01-23-2024 09:33-0400 Heart rate 66 /min Pfo 6 [facility] 01-23-2024 09:33-0400 Respiratory rate 18 /min Pfo 6 [facility] 01-23-2024 09:33-0400 SaO2% (BldA) [Mass fraction] 98 % Pfo 6 [facility] 01-23-2024 09:33-0400 Systolic blood pressure 180 mm[Hg] Pfo 6 [facility] 01-16-2024 09:24-0500 Body height 165.1 cm Pfo 6 [facility] 01-16-2024 09:24-0500 Body mass index (BMI) [Ratio] 46.1 kg/m2 Pfo 6 [facility] 01-16-2024 09:24-0500 Body temperature 98.01 [degF] Pfo 6 [facility] 01-16-2024 09:24-0500 Body weight 125.65 kg Pfo 6 [facility] 01-16-2024 09:24-0500 Diastolic blood pressure 80 mm[Hg] Pfo 6 [facility] 01-16-2024 09:24-0500 Heart rate 71 /min Pfo 6 [facility] 01-16-2024 09:24-0500 Respiratory rate 18 /min Pfo 6 [facility] 01-16-2024 09:24-0500 SaO2% (BldA) [Mass fraction] 97 % Pfo 6 [facility] 01-16-2024 09:24-0500 Systolic blood pressure 180 mm[Hg] Pfo 6 [facility] 01-09-2024 09:36-0500 Body height 165.1 cm Pfo 3 [facility] 01-09-2024 09:36-0500 Body mass index (BMI) [Ratio] 46.1 kg/m2 Pfo 3 [facility] 01-09-2024 09:36-0500 Body temperature 97.9 [degF] Pfo 3 [facility] 01-09-2024 09:36-0500 Body weight 125.65 kg Pfo 3 [facility] 01-09-2024 09:36-0500 Diastolic blood pressure 75 mm[Hg] Pfo 3 [facility] 01-09-2024 09:36-0500 Heart rate 70 /min Pfo 3 [facility] 01-09-2024 09:36-0500 Respiratory rate 18 /min Pfo 3 [facility] 01-09-2024 09:36-0500 SaO2% (BldA) [Mass fraction] 97 % Pfo 3 [facility] 01-09-2024 09:36-0500 Systolic blood pressure 180 mm[Hg] Pfo 3 [facility] 01-02-2024 09:37-0500 Body temperature 98.01 [degF] Pfo 4 [facility] 01-02-2024 09:37-0500 Diastolic blood pressure 72 mm[Hg] Pfo 4 [facility] 01-02-2024 09:37-0500 Heart rate 62 /min Pfo 4 [facility] 01-02-2024 09:37-0500 Respiratory rate 18 /min Pfo 4 [facility] 01-02-2024 09:37-0500 SaO2% (BldA) [Mass fraction] 95 % Pfo 4 [facility] 01-02-2024 09:37-0500 Systolic blood pressure 184 mm[Hg] Pfo 4 [facility] 12-26-2023 09:37-0500 Body height 165.1 cm Pfo 4 [facility] 12-26-2023 09:37-0500 Body mass index (BMI) [Ratio] 46.1 kg/m2 Pfo 4 [facility] 12-26-2023 09:37-0500 Body temperature 97.7 [degF] Pfo 4 [facility] 12-26-2023 09:37-0500 Body weight 125.65 kg Pfo 4 [facility] 12-26-2023 09:37-0500 Diastolic blood pressure 64 mm[Hg] Pfo 4 [facility] 12-26-2023 09:37-0500 Heart rate 67 /min Pfo 4 [facility] 12-26-2023 09:37-0500 Respiratory rate 18 /min Pfo 4 [facility] 12-26-2023 09:37-0500 SaO2% (BldA) [Mass fraction] 96 % Pfo 4 [facility] 12-26-2023 09:37-0500 Systolic blood pressure 177 mm[Hg] Pfo 4 [facility] 12-19-2023 09:30-0500 Body height 165.1 cm Pfo 2 [facility] 12-19-2023 09:30-0500 Body mass index (BMI) [Ratio] 46.13 kg/m2 Pfo 2 [facility] 12-19-2023 09:30-0500 Body temperature 97.39 [degF] Pfo 2 [facility] 12-19-2023 09:30-0500 Body weight 125.74 kg Pfo 2 [facility] 12-19-2023 09:30-0500 Diastolic blood pressure 67 mm[Hg] Pfo 2 [facility] 12-19-2023 09:30-0500 Heart rate 67 /min Pfo 2 [facility] 12-19-2023 09:30-0500 Respiratory rate 18 /min Pfo 2 [facility] 12-19-2023 09:30-0500 SaO2% (BldA) [Mass fraction] 97 % Pfo 2 [facility] 12-19-2023 09:30-0500 Systolic blood pressure 196 mm[Hg] Pfo 2 [facility] 12-12-2023 09:25-0500 Body height 165.1 cm Pfo 2 [facility] 12-12-2023 09:25-0500 Body mass index (BMI) [Ratio] 45.43 kg/m2 Pfo 2 [facility] 12-12-2023 09:25-0500 Body temperature 97.5 [degF] Pfo 2 [facility] 12-12-2023 09:25-0500 Body weight 123.83 kg Pfo 2 [facility] 12-12-2023 09:25-0500 Diastolic blood pressure 71 mm[Hg] Pfo 2 [facility] 12-12-2023 09:25-0500 Heart rate 70 /min Pfo 2 [facility] 12-12-2023 09:25-0500 Respiratory rate 18 /min Pfo 2 [facility] 12-12-2023 09:25-0500 SaO2% (BldA) [Mass fraction] 98 % Pfo 2 [facility] 12-12-2023 09:25-0500 Systolic blood pressure 166 mm[Hg] Pfo 2 [facility] 12-05-2023 09:15-0500 Body height 165.1 cm Pfo 2 [facility] 12-05-2023 09:15-0500 Body mass index (BMI) [Ratio] 44.76 kg/m2 Pfo 2 [facility] 12-05-2023 09:15-0500 Body temperature 97.39 [degF] Pfo 2 [facility] 12-05-2023 09:15-0500 Body weight 122.02 kg Pfo 2 [facility] 12-05-2023 09:15-0500 Diastolic blood pressure 70 mm[Hg] Pfo 2 [facility] 12-05-2023 09:15-0500 Heart rate 71 /min Pfo 2 [facility] 12-05-2023 09:15-0500 Respiratory rate 18 /min Pfo 2 [facility] 12-05-2023 09:15-0500 SaO2% (BldA) [Mass fraction] 96 % Pfo 2 [facility] 12-05-2023 09:15-0500 Systolic blood pressure 157 mm[Hg] Pfo 2 [facility] 11-28-2023 09:17-0500 Body height 165.1 cm Pfo 1 [facility] 11-28-2023 09:17-0500 Body mass index (BMI) [Ratio] 44.93 kg/m2 Pfo 1 [facility] 11-28-2023 09:17-0500 Body temperature 97.2 [degF] Pfo 1 [facility] 11-28-2023 09:17-0500 Body weight 122.47 kg Pfo 1 [facility] 11-28-2023 09:17-0500 Diastolic blood pressure 56 mm[Hg] Pfo 1 [facility] 11-28-2023 09:17-0500 Heart rate 79 /min Pfo 1 [facility] 11-28-2023 09:17-0500 Respiratory rate 18 /min Pfo 1 [facility] 11-28-2023 09:17-0500 SaO2% (BldA) [Mass fraction] 99 % Pfo 1 [facility] 11-28-2023 09:17-0500 Systolic blood pressure 156 mm[Hg] Pfo 1 [facility] 11-26-2023 13:40-0500 Body height 165.1 cm Fernie Furlong DO Work Phone: [facility] 11-26-2023 13:40-0500 Body mass index (BMI) [Ratio] 44.45 kg/m2 Fernie Furlong DO Work Phone: [facility] 11-26-2023 13:40-0500 Body temperature 97.3 [degF] Fernie Furlong DO Work Phone: [facility] 11-26-2023 13:40-0500 Body weight 121.16 kg Fernie Furlong DO Work Phone: [facility] 11-26-2023 13:40-0500 Diastolic blood pressure 62 mm[Hg] Fernie Furlong DO Work Phone: [facility] 11-26-2023 13:40-0500 Heart rate 62 /min Fernie Furlong DO Work Phone: [facility] 11-26-2023 13:40-0500 SaO2% (BldA) [Mass fraction] 96 % Fernie Furlong DO Work Phone: [facility] 11-26-2023 13:40-0500 Systolic blood pressure 130 mm[Hg] Fernie Furlong DO Work Phone: [facility] 11-21-2023 10:01-0500 Body height 165.1 cm Pfo 1 [facility] 11-21-2023 10:01-0500 Body mass index (BMI) [Ratio] 44.6 kg/m2 Pfo 1 [facility] [employer] [facility] 11-21-2023 10:01-0500 Body temperature 97.81 [degF] Pfo 1 [facility] [employer] [facility] 11-21-2023 10:01-0500 Body weight 121.56 kg Pfo 1 [facility] 11-21-2023 10:01-0500 Diastolic blood pressure 52 mm[Hg] Pfo 1 [facility] 11-21-2023 10:01-0500 Heart rate 62 /min Pfo 1 [facility] [employer] [facility] 11-21-2023 10:01-0500 Respiratory rate 18 /min Pfo 1 [facility] 11-21-2023 10:01-0500 SaO2% (BldA) [Mass fraction] 94 % Pfo 1 [facility] 11-21-2023 10:01-0500 Systolic blood pressure 122 mm[Hg] Pfo 1 [facility] 11-16-2023 09:00-0500 Body temperature 96.6 [degF] DO Fernie Furlong Work Phone: [facility] 11-16-2023 09:00-0500 Diastolic blood pressure 74 mm[Hg] DO Fernie Furlong Work Phone: [facility] 11-16-2023 09:00-0500 Heart rate 71 /min DO Fernie Furlong Work Phone: [facility] 11-16-2023 09:00-0500 Respiratory rate 18 /min DO Fernie Furlong Work Phone: [facility] 11-16-2023 09:00-0500 SaO2% (BldA) [Mass fraction] 97 % DO Fernie Furlong Work Phone: [facility] 11-16-2023 09:00-0500 Systolic blood pressure 148 mm[Hg] DO Fernie Furlong Work Phone: [facility] 08-23-2023 12:20-0400 Body height 165.1 cm Gia Tammy Other Issue Other 08-23-2023 12:20-0400 Body mass index (BMI) [Ratio] 44.09 kg/m2 Gia Tammy Other Issue Other 08-23-2023 12:20-0400 Body temperature 96.6 [degF] Gia Tammy Other Issue Other 08-23-2023 12:20-0400 Body weight 120.2 kg Gia Tammy Other Issue Other 08-23-2023 12:20-0400 Diastolic blood pressure 86 mm[Hg] Gia Atmmy Other Issue Other 08-23-2023 12:20-0400 Respiratory rate 18 /min Gia Tammy Other Issue Other 08-23-2023 12:20-0400 SaO2% (BldA) [Mass fraction] 96 % Gia Tammy Other Issue Other 08-23-2023 12:20-0400 Systolic blood pressure 138 mm[Hg] Gia Tammy Other Issue Other 01-25-2023 12:20-0400 Body height 165.1 cm Gia Tammy Other Issue Other 01-25-2023 12:20-0400 Body mass index (BMI) [Ratio] 45.76 kg/m2 Gia Tammy Other Issue Other 01-25-2023 12:20-0400 Body temperature 96.7 [degF] Gia Tammy Other Issue Other 01-25-2023 12:20-0400 Body weight 124.74 kg Gia Tammy Other Issue Other 01-25-2023 12:20-0400 Diastolic blood pressure 80 mm[Hg] Gia Tammy Other Issue Other 01-25-2023 12:20-0400 Respiratory rate 18 /min Gia Tammy Other Issue Other 01-25-2023 12:20-0400 SaO2% (BldA) [Mass fraction] 96 % Gia Tammy Other Issue Other 01-25-2023 12:20-0400 Systolic blood pressure 139 mm[Hg] Gia Tammy Other Issue Other 07-20-2022 13:00-0400 Body height 165.1 cm Gia Tammy Other Issue Other 07-20-2022 13:00-0400 Body temperature 96 [degF] Gia Tammy Other Issue Other 07-20-2022 13:00-0400 Diastolic blood pressure 71 mm[Hg] Gia Tammy Other Issue Other 07-20-2022 13:00-0400 Respiratory rate 18 /min Gia Tammy Other Issue Other 07-20-2022 13:00-0400 SaO2% (BldA) [Mass fraction] 96 % Gia Tammy Other Issue Other 07-20-2022 13:00-0400 Systolic blood pressure 134 mm[Hg] Gia Tammy Other Issue Other 04-06-2022 12:00-0400 Body height 165.1 cm Gia Tammy Other Issue Other 04-06-2022 12:00-0400 Body mass index (BMI) [Ratio] 46.32 kg/m2 Gia Tammy Other Issue Other 04-06-2022 12:00-0400 Body temperature 98 [degF] Gia Tammy Other Issue Other 04-06-2022 12:00-0400 Body weight 126.28 kg Gia Tammy Other Issue Other 04-06-2022 12:00-0400 Diastolic blood pressure 70 mm[Hg] Gia Tammy Other Issue Other 04-06-2022 12:00-0400 Respiratory rate 20 /min Gia Tammy Other Issue Other 04-06-2022 12:00-0400 SaO2% (BldA) [Mass fraction] 93 % Gia Tammy Other Issue Other 04-06-2022 12:00-0400 Systolic blood pressure 122 mm[Hg] Gia Tammy Other Issue Other 12-27-2021 16:20-0500 Body height 165.1 cm Gia Tammy Other Issue Other 12-27-2021 16:20-0500 Body mass index (BMI) [Ratio] 46.29 kg/m2 Gia Tammy Other Issue Other 12-27-2021 16:20-0500 Body temperature 96.2 [degF] Gia Tammy Other Issue Other 12-27-2021 16:20-0500 Body weight 126.19 kg Gia Tammy Other Issue Other 12-27-2021 16:20-0500 Diastolic blood pressure 78 mm[Hg] Gia Tammy Other Issue Other 12-27-2021 16:20-0500 Respiratory rate 20 /min Gia Tammy Other Issue Other 12-27-2021 16:20-0500 SaO2% (BldA) [Mass fraction] 95 % Gia Tammy Other Issue Other 12-27-2021 16:20-0500 Systolic blood pressure 161 mm[Hg] Gia Tammy Other Issue Other Encounters Encounter Date Encounter Type Care Provider Facility Start: 01-04-2025 ambulatory FERNIE CLARK [facility] Start: 01-03-2025 End: 01-03-2025 ambulatory Fernie Clark DO Work Phone: [facility] Work Phone: Start: 01-03-2025 End: 01-03-2025 Departed Referred Fernie Clark DO Work Phone: [facility]-LAB Path [facility] Start: 01-03-2025 [...] / Non-visit Fernie Furlong DO Work Phone: [facility] Work Phone: Start: 12-02-2024 Non-patient / Non-visit Fernierajinder Molinalong DO Work Phone: [facility] Work Phone: Start: 12-02-2024 End: [...] / Non-visit Fernie Tracylong DO Work Phone: [facility] Work Phone: Start: 11-24-2024 End: 11-24-2024 Telephone encounter Fernie Mascorrong DO Work Phone: [facility] - [facility] Start: 11-20-2024 Non-patient / Non-visit Fernierajinder Molinalong DO Work Phone: [facility] Work Phone: Start: 11-20-2024 End: 11-20-2024 ambulatory Fernie Furlong DO Work Phone: [facility] Work Phone: Start: 11-20-2024 End: 11-20-2024 Departed Referred Fernie Furlong DO Work Phone: [facility] Start: 11-18-2024 End: 11-18-2024 Orders Only [facility] Comment on above: Hypomagnesemia (Prim fara Dx) Start: 11-17-2024 End: 11-19-2024 Telephone encounter [facility] Start: 11-17-2024 End: 11-17-2024 ambulatory FERNIE [facility] Start: 11-10-2024 End: 11-10-2024 ambulatory [facility] Start: 11-04-2024 End: 11-04-2024 ambulatory [facility] Infusion Bed 1 Elida hu [facility] - [facility] Oncology Comment on above: Hypomagnesemia (Prim fara Dx) Start: 11-03-2024 End: 11-03-2024 Refill Fernie Clark DO Work Phone: [facility] Start: 11-03-2024 End: 11-03-2024 Orders Only Fernie Clark DO Work Phone: [facility] Start: 11-03-2024 End: 11-03-2024 ambulatory Christian Curtis MD Facility:[facility] Start: 10-27-2024 End: 10-27-2024 ambulatory [facility] Start: 10-20-2024 End: 10-20-2024 Documentation procedure Clara prince [facility] Start: 10-20-2024 End: 10-20-2024 ambulatory [facility] Start: 10-13-2024 End: 10-13-2024 ambulatory [facility] Start: 10-07-2024 End: 10-14-2024 Refill Fernie Clark DO Work Phone: [facility] - [facility] Start: 10-07-2024 End: 10-07-2024 ambulatory FERNIE G [facility] Comment on above: Hypomagnesemia (Prim fara Dx) Start: 10-06-2024 End: 10-06-2024 [facility] Start: 10-01-2024 End: 10-01-2024 [facility] Comment on above: Hypomagnesemia (Prim fara Dx) Start: 09-29-2024 End: 09-29-2024 [facility] Start: 09-27-2024 End: 09-27-2024 Orders Only Fernie Clark DO Work Phone: [facility] Start: 09-26-2024 End: 09-26-2024 Evaluation and management of inpatient [facility] Start: 09-22-2024 End: 09-22-2024 [facility] Start: 09-15-2024 End: 09-15-2024 [facility] Start: 09-11-2024 End: 09-11-2024 Refill Fernie Clark DO Work Phone: [facility] Start: 09-10-2024 End: 09-10-2024 Telephone encounter Nina Mcgee [facility] Comment on above: EMG NEW PATIENT Start: 09-10-2024 End: 09-10-2024 [facility]ulatory [facility] Comment on above: Hypomagnesemia (Prim fara Dx) Start: 09-08-2024 End: 09-08-2024 [facility] Start: 09-04-2024 End: 09-04-2024 Orders Only Fernie Clark DO Work Phone: [facility] Comment on above: Paresthesia of right lower extremity (Primary Dx); Ross's esophagus with dysplasia Start: 09-01-2024 End: 09-01-2024 Documentation procedure [facility] Start: 09-01-2024 End: 09-01-2024 [facility] Start: 08-27-2024 End: 08-27-2024 [facility] Comment on above: Hypomagnesemia (Prim fara Dx) Start: 08-25-2024 End: 08-25-2024 [facility] Start: 08-22-2024 End: 08-25-2024 Refill Fernie Clark DO Work Phone: [facility] - [facility] Comment on above: 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 ([facility]) (Primary Dx); Morbid obesity ([facility]) Start: 08-20-2024 End: 08-20-2024 [facility] Comment on above: Hypomagnesemia (Prim fara Dx) Start: 08-18-2024 End: 08-18-2024 [facility] Start: 08-13-2024 End: 08-13-2024 [facility] Comment on above: Hypomagnesemia (Prim fara Dx) Start: 08-11-2024 End: 08-11-2024 [facility] Start: 08-06-2024 End: 08-06-2024 [facility] Comment on above: Hypomagnesemia (Prim fara Dx) Start: 08-05-2024 End: 08-05-2024 Orders Only Fernie Clark DO Work Phone: [facility] - [facility] Start: 08-04-2024 End: 08-04-2024 [facility] Start: 07-30-2024 End: 07-30-2024 [facility] Comment on above: Hypomagnesemia (Prim fara Dx) Start: 07-28-2024 End: 07-28-2024 [facility] Start: 07-28-2024 End: 07-28-2024 ambulatory Christian Curtis MD Facility: [facility] Start: 07-23-2024 End: 07-23-2024 ambulatory [facility] Comment on above: Hypomagnesemia (Prim fara Dx) Start: 07-21-2024 End: 07-21-2024 [facility] Start: 07-17-2024 End: 07-17-2024 Refill Fernie Clark DO Work Phone: [facility] - Family [facility] Start: 07-16-2024 End: 07-16-2024 [facility] Comment on above: Hypomagnesemia (Prim fara Dx) Start: 07-15-2024 End: 07-15-2024 [facility] Start: 07-09-2024 End: 07-09-2024 [facility] Comment on above: Hypomagnesemia (Prim fara Dx) Start: 07-07-2024 End: 07-07-2024 [facility] Start: 07-02-2024 End: 07-02-2024 [facility] Comment on above: Hypomagnesemia (Prim fara Dx) Start: 06-30-2024 End: 06-30-2024 [facility] Start: 06-27-2024 End: 06-27-2024 Refill Fernie Mascorrong DO Work Phone: [facility] - Family [facility] Start: 06-25-2024 End: 06-25-2024 [facility] Comment on above: Hypomagnesemia (Prim fara Dx) Start: 06-23-2024 End: 06-23-2024 [facility] Start: 06-18-2024 End: 06-18-2024 [facility] Comment on above: Hypomagnesemia (Prim fara Dx) Start: 06-16-2024 End: 06-16-2024 [facility] Start: 06-11-2024 End: 06-11-2024 [facility] Comment on above: Hypomagnesemia (Prim fara Dx) Start: 06-09-2024 End: 06-09-2024 [facility] Start: 06-04-2024 End: 06-04-2024 ambulatory [facility] Start: 06-02-2024 End: 06-02-2024 [facility] Start: 05-30-2024 End: 05-30-2024 [facility] Start: 05-29-2024 End: 05-29-2024 [facility]: [facility] Start: 05-28-2024 End: 05-28-2024 [facility] Comment on above: Hypomagnesemia (Prim fara Dx) Start: 05-27-2024 End: 05-27-2024 [facility] Start: 05-27-2024 End: 05-27-2024 Office outpatient visit 25 minutes Fernie Mascorro DO Work Phone: [facility] - [facility] Comment on above: 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 ([facility]) (Primary Dx); Dysuria; Acute rhinitis; Morbid obesity ([facility]); Incontinence of feces with fecal urgency Start: 05-27-2024 End: 05-27-2024 [facility] Start: 05-26-2024 End: 05-26-2024 [facility] Start: 05-21-2024 End: 05-21-2024 [facility] Comment on above: Hypomagnesemia (Prim fara Dx) Start: 05-19-2024 End: 05-19-2024 [facility] Start: 05-14-2024 End: 05-14-2024 [facility] Comment on above: Hypomagnesemia (Prim fara Dx) Start: 05-12-2024 End: 05-12-2024 [facility] Start: 05-07-2024 End: 05-07-2024 [facility] Comment on above: Hypomagnesemia (Prim fara Dx) Start: 05-05-2024 End: 05-05-2024 [facility] Start: 05-01-2024 End: 05-01-2024 ambulatory [facility] Work Phone: Start: 05-01-2024 End: 05-01-2024 Patient encounter procedure [facility] Tod Work Phone: Start: 04-30-2024 End: 04-30-2024 [facility] Comment on above: Hypomagnesemia (Prim fara Dx) Start: 04-29-2024 End: 04-29-2024 Refill Fernie Clark Work Phone: [facility] - Family [facility] Start: 04-29-2024 End: 04-29-2024 Refill Elba Bae CMA [facility] - [facility] Start: 04-28-2024 Non-patient / Non-visit [facility] Nephrology Work Phone: Start: 04-28-2024 End: 04-28-2024 [facility] Start: 04-23-2024 End: 04-23-2024 [facility] Comment on above: Hypomagnesemia (Prim fara Dx) Start: 04-21-2024 End: 04-21-2024 [facility] FERNIE [facility] Start: 04-16-2024 End: 04-16-2024 [facility] Comment on above: Hypomagnesemia (Prim fara Dx) Start: 04-14-2024 End: 04-14-2024 [facility] Start: 04-09-2024 End: 04-09-2024 Refill Fernie Mascorrong DO Work Phone: [facility] - [facility] Start: 04-09-2024 End: 04-09-2024 [facility] Comment on above: Hypomagnesemia (Prim fara Dx) Start: 04-08-2024 End: 04-08-2024 [facility] Start: 04-02-2024 End: 04-02-2024 [facility] Jamarcus [facility] Comment on above: Hypomagnesemia (Prim fara Dx) Start: 03-31-2024 End: 03-31-2024 Refill Fernie Molinalong DO Work Phone: [facility] - [facility] Start: 03-31-2024 End: 03-31-2024 [facility] Start: 03-26-2024 End: 03-26-2024 [facility] FERNIE [facility] Comment on above: Hypomagnesemia (Prim fara Dx) Start: 03-24-2024 End: 03-24-2024 [facility] Start: 03-19-2024 End: 03-19-2024 [facility] Comment on above: Hypomagnesemia (Prim fara Dx) Start: 03-17-2024 End: 03-17-2024 Refill Fernie [facility] Furlong DO Work Phone: [facility] - [facility] Start: 03-17-2024 End: 03-17-2024 [facility] Start: 03-12-2024 End: 03-12-2024 [facility] Comment on above: Hypomagnesemia (Prim fara Dx) Start: 03-10-2024 End: 03-10-2024 [facility] Start: 03-03-2024 End: 03-03-2024 [facility] Start: 02-25-2024 End: 02-25-2024 Office outpatient visit 15 minutes Fernie Mascorro DO Work Phone: [facility] - Family [facility] Comment on above: Urinary incontinence , unspecified type (Primary Dx); Abnormality of gait and mobility Start: 02-25-2024 End: 02-25-2024 [facility] Start: 02-25-2024 End: 02-25-2024 Documentation procedure Millie Ireland [facility] - Medical Oncology Start: 02-25-2024 End: 02-25-2024 [facility] Start: 02-20-2024 End: 02-20-2024 Documentation procedure Americo Lira [facility] Medical Oncology Start: 02-19-2024 End: 02-19-2024 Documentation procedure Americo Lira [facility] Medical Oncology Start: 02-18-2024 End: 02-18-2024 [facility] Start: 02-13-2024 End: 02-13-2024 [facility] Comment on above: Hypomagnesemia (Prim fara Dx) Start: 02-11-2024 End: 02-11-2024 [facility] Start: 02-06-2024 End: 02-06-2024 [facility] Comment on above: Hypomagnesemia (Prim fara Dx) Start: 02-04-2024 End: 02-04-2024 [facility] Start: 02-04-2024 End: 02-04-2024 ambulatory Christian Curtis MD Facility:[facility] Start: 01-30-2024 End: 01-30-2024 [facility] Comment on above: Hypomagnesemia (Prim fara Dx) Start: 01-28-2024 End: 01-28-2024 [facility] Start: 01-23-2024 End: 01-23-2024 [facility] Comment on above: Hypomagnesemia (Prim fara Dx) Start: 01-21-2024 End: 01-21-2024 [facility] Start: 01-21-2024 End: 01-21-2024 ambulatory Christian Curtis MD Facility:[facility] Start: 01-17-2024 Orders Only Fernie noguera DO Work Phone: [facility] - [facility] Comment on above: Hypertension in sta e 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 ([facility]) (Primary Dx) Start: 01-16-2024 End: 01-16-2024 [facility] Comment on above: Hypomagnesemia (Prim fara Dx) Start: 01-14-2024 End: 01-14-2024 [facility] Start: 01-09-2024 End: 01-09-2024 [facility] Comment on above: Hypomagnesemia (Prim fara Dx) Start: 01-08-2024 End: 01-08-2024 Patient encounter procedure Fernie Clark DO Work Phone: [facility] - [facility] Comment on above: Medicare annual well ness visit, subsequent (Primary Dx); Screening for depression Start: 01-08-2024 End: 01-08-2024 [facility] Ambulatory [facility] Start: 01-07-2024 End: 01-07-2024 ambulatory [facility] Start: 01-02-2024 End: 01-11-2024 [facility] Comment on above: Hypomagnesemia (Prim fara Dx) Start: 12-31-2023 End: 12-31-2023 [facility] Start: 12-26-2023 End: 12-26-2023 [facility] Comment on above: Hypomagnesemia (Prim fara Dx) Start: 12-24-2023 End: 12-24-2023 [facility] Start: 12-19-2023 End: 12-19-2023 [facility] Comment on above: Hypomagnesemia (Prim fara Dx) Start: 12-17-2023 End: 12-17-2023 [facility] Start: 12-12-2023 End: 12-12-2023 ambulatory [facility] Comment on above: Hypomagnesemia (Prim fara Dx) Start: 12-11-2023 Refill Theresa Dhaval JEANNE [facility] Start: 12-10-2023 End: 12-10-2023 [facility] Start: 12-07-2023 Orders Only Fernie Jamarcus Molinalo ng DO [facility] Phone[facility] Start: 12-05-2023 Telephone encounter [facility] Start: 12-05-2023 End: 12-05-2023 ambulatory [facility] Comment on above: Hypomagnesemia (Prim fara Dx) Start: 12-04-2023 Refill Fernie Jamarcus Molinalo ng DO Work Phone: [facility] Start: 12-03-2023 End: 12-03-2023 ambulatory [facility] Start: 11-28-2023 End: 11-28-2023 ambulatory FERNIE Ricketts [facility] Comment on above: Hypomagnesemia (Prim fara Dx) Start: 11-26-2023 End: 11-26-2023 ambulatory FERNIE CLARK [facility] Start: 11-26-2023 End: 11-26-2023 Office outpatient visit 25 minutes Fernie Clark DO Work Phone: [facility] Comment on above: Hypertension 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 ([facility]) (Primary Dx); Mixed hyperlipidemia; Hypomagnesemia; 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; Morbid obesity ([facility]); Chronic obstructive pulmonary disease, unspecified COPD type [facility] Start: 11-26-2023 End: 11-26-2023 [facility] Start: 11-21-2023 End: 11-21-2023 ambulatory [facility] 1 Elida Ireland [facility] - [facility] On[facility] Comment on above: Hypomagnesemia (Prim fara Dx) Mixed hyperlipidemia (Primary Dx); Type 2 diabetes mellitus with stage 3b chronic kidney disease, with long-term current use of insulin ([facility]); Essential hypertension Start: 11-20-2023 Chart abstracting Felicity Ireland [facility] On[facility] Start: 11-19-2023 End: 11-19-[address] [facility] Comment on above: Hypomagnesemia (Prim fara Dx) Start: 11-16-2023 End: 11-16-2023 ambulatory DO Fernie Furlong Work Phone: [facility] Work Phone: Start: 11-16-2023 End: 11-16-2023 Discharged Recurring DO Fernie Furlong Work Phone: [facility]-Infusion Therapy - O/P Work Phone: Start: 11-12-2023 Refill Fernie noguera DO Work Phone: [facility] Start: 08-23-2023 End: 08-23-2023 ambulatory Gia Tammy Other Issue Other Start: 08-23-2023 Office outpatient vi sit 25 minutes Gia Tammy [facility] Start: 04-26-[address] FERNIE CLARK Fac ility:[facility]1 Start: 01-25-2023 End: 01-26-[address] LUISA STERN . Issue Other Start: 01-25-2023 Office outpatient vi sit 25 minutes Gia Tammy [facility] Start: 01-15-2023 End: 01-16-2023 ambulatory GIA TAMMY Facility:[facility] Start: 12-06-2022 End: 12-06-2022 ambulatory [facility] Start: 11-09-2022 End: 11-10-[address] FERNIE CLARK Facility:[facility] Start: 10-26-2022 End: 10-27-[address] LUISA STERN . Facility:[facility] Start: 08-02-2022 End: 08-03-[address] LUISA STERN . Facility:[facility] Start: 07-20-2022 End: 07-20-2022 ambulatory Gia Tammy Other Issue Other Start: 07-20-2022 Office outpatient vi sit 25 minutes Gia Tammy [facility] Start: 07-12-2022 End: 07-13-2022 ambulatory GIA TAMMY Facility:[facility] Start: 05-03-2022 End: 05-03-2022 ambulatory Gia Tammy Other Issue Other Start: 05-03-2022 Telephone encounter Gia Tammy [facility] Start: 04-25-2022 End: 04-26-[address] LUISA STERN . Facility:[facility] Start: 04-06-2022 End: 04-06-2022 ambulatory Gia Tammy Other Issue Other Start: 04-06-2022 Office outpatient vi sit 25 minutes Gia Tammy [facility] Start: 03-30-2022 End: 03-31-2022 ambulatory GIA TAMMY Facility:[facility] Start: 03-30-2022 End: 03-31-[address] LUISA STERN . Facility:[facility] Start: 12-27-2021 End: 12-27-2021 ambulatory Gia Tammy Other Issue Other Start: 12-27-2021 Office outpatient vi sit 15 minutes Gia Tammy [facility] Start: 11-28-2021 End: 11-28-2021 ambulatory Gia Tammy Other Issue Other Start: 11-28-2021 Telephone encounter Gia Tammy [facility] Start: 11-24-2021 End: 11-24-2021 ambulatory Gia Tammy Other Issue Other Start: 11-24-2021 Telephone encounter Gia Tammy [facility] Start: 03-30-2021 End: 03-31-2021 ambulatory [facility] Dino [facility] Facility:[facility] Procedures Date Procedure Procedure Detail [...] Td Vaccines (2 - Td or Tdap) [facility] Start: 11-04-2025 Fall Risk Screening Fall Risk Screening [facility] Start: 10-07-2025 Fall Risk Screening Fall Risk Screening [facility] Start: 09-26-2025 Tobacco Screening Tobacco Screening [facility] Start: 08-27-2025 Adult BMI Screening Adult BMI Screening [facility] Start: 08-27-2025 Fall Risk Screening Fall Risk Screening [facility] Start: 08-20-2025 Adult BMI Screening Adult BMI Screening [facility] Start: 08-13-2025 Adult BMI Screening Adult BMI Screening [facility] Start: 08-06-2025 Tobacco Screening Tobacco Screening [facility] Start: 07-30-2025 Adult BMI Screening Adult BMI Screening [facility] Start: 07-30-2025 Tobacco Screening Tobacco Screening [facility] Start: 07-23-2025 Adult BMI Screening Adult BMI Screening [facility] Start: 07-16-2025 Adult BMI Screening Adult BMI Screening [facility] Start: 07-16-2025 Tobacco Screening Tobacco Screening [facility] Start: 07-09-2025 Adult BMI Screening Adult BMI Screening [facility] Start: 07-02-2025 Adult BMI Screening Adult BMI Screening [facility] Start: 06-25-2025 Adult BMI Screening Adult [facility] Start: 06-25-2025 Tobacco Screening [facility] Start: 06-18-2025 Adult BMI Screening Adult [facility] Start: 06-18-2025 Tobacco Screening Tobacco Screening [facility] Start: 06-11-2025 Adult BMI Screening Adult [facility] Screening [facility] Start: 06-11-2025 Tobacco Screening Tobacco Screening [facility] Start: 06-04-2025 Adult BMI Screening Adult BMI Screening [facility] Start: 06-04-2025 Tobacco Screening Tobacco Screening [facility] Start: 05-28-2025 Adult BMI Screening Adult BMI Screening [facility] Start: 05-28-2025 Tobacco Screening Tobacco Screening [facility] Start: 05-27-2025 Adult BMI Screening Adult BMI Screening [facility] Start: 05-27-2025 Depression Screening Depression Screening [facility] Start: 05-27-2025 Tobacco Screening Tobacco Screening [facility] Start: 05-14-2025 Adult BMI Screening Adult BMI Screening [facility] Start: 05-14-2025 Tobacco Screening Tobacco Screening [facility] Start: 05-07-2025 Adult BMI Screening Adult BMI Screening [facility] Start: 05-07-2025 Fall Risk Screening Fall Risk Screening [facility] Start: 05-07-2025 Tobacco Screening Tobacco Screening [facility] Start: 04-30-2025 Adult BMI Screening Adult BMI Screening [facility] Start: 04-30-2025 Tobacco Screening Tobacco Screening [facility] Start: 04-23-2025 Adult BMI Screening Adult BMI Screening [facility] Start: 04-23-2025 Tobacco Screening Tobacco Screening [facility] Start: 04-09-2025 Adult BMI Screening Adult [facility] Start: 04-09-2025 Tobacco Screening Tobacco Screening [facility] Start: 04-02-2025 Adult BMI Screening Adult [facility] Screening [facility] Start: 04-02-2025 Tobacco Screening Tobacco Screening [facility] Start: 03-26-2025 Adult BMI Screening Adult [facility] Screening [facility] Start: 03-26-2025 Tobacco Screening Tobacco Screening [facility] Start: 03-19-2025 Adult BMI Screening Adult BMI Screening [facility] Start: 03-19-2025 Tobacco Screening Tobacco Screening [facility] Start: 03-12-2025 Adult BMI Screening Adult BMI Screening [facility] Start: 02-24-2025 Depression Screening Depression Screening [facility] Start: 02-24-2025 Fall Risk Screening Fall Risk Screening [facility] Start: 02-24-2025 Tobacco Screening Tobacco Screening [facility] Start: 02-12-2025 Adult BMI Screening Adult BMI Screening [facility] Start: 02-12-2025 Tobacco Screening Tobacco Screening [facility] Start: 02-05-2025 Adult BMI Screening Adult BMI Screening [facility] Start: 02-05-2025 Tobacco Screening Tobacco Screening [facility] Start: 01-29-2025 Adult BMI Screening Adult BMI Screening [facility] Start: 01-29-2025 Tobacco Screening Tobacco Screening [facility] Start: 01-22-2025 Adult BMI Screening Adult BMI Screening [facility] Start: 01-22-2025 Tobacco Screening Tobacco Screening [facility] Start: 01-15-2025 Adult BMI Screening Adult BMI Screening [facility] Start: 01-13-2025 End: 01-13-2025 Patient encounter procedure 01/13/2025 12:40 PM EST Of fice Visit [facility] - Family Medicine [address] [place] [address] [facility] Start: 01-09-2025 Adult BMI Screening Adult BMI Screening [facility] Start: 01-09-2025 Tobacco Screening Tobacco Screening [facility] Start: 01-08-2025 Depression Screening Depression Screening [facility] Start: 01-08-2025 Fall Risk Screening Fall Risk Screening [facility] Start: 01-08-2025 Medicare Annual Wellness Visit Medicare Annual Wellness Visi t [facility] Start: 01-03-2025 Urine culture [facility] Start: 01-03-2025 Bacteria identified in Urine by Culture Urine Culture [facility] Start: 01-02-2025 Tobacco Screening Tobacco Screening [facility] Start: 12-26-2024 Adult BMI Screening Adult BMI Screening [facility] Start: 12-26-2024 Tobacco Screening Tobacco Screening [facility] Start: 12-19-2024 Adult BMI Screening Adult BMI Screening [facility] Start: 12-19-2024 Tobacco Screening Tobacco Screening [facility] Start: 12-15-2024 End: 12-15-2024 Patient encounter procedure 12/15/2024 12:30 PM EST Procedure [facility] [address] [place] [address] Ton Urbano MD [address] [place] [address] [facility] Start: 12-12-2024 Adult BMI Screening Adult BMI Screening [facility] Start: 12-10-2024 End: 12-10-2024 ambulatory 12/10/2024 9:30 AM EST Infusion Elida Ireland [facility] - Medical Oncology [address] [place] [phone] Elida Ireland [facility] Medical Oncology Start: 12-05-2024 Adult BMI Screening Adult BMI Screening [facility] Start: 12-05-2024 Tobacco Screening Tobacco Screening [facility] Start: 12-04-2024 End: 12-04-2024 Patient encounter procedure 12/04/2024 1:30 PM EST [facility] [address] [place] [address] Fernie Clark, [address], [facility] [place] [address] [facility] Start: 12-03-2024 End: 12-03-2024 ambulatory 12/03/2024 9:30 AM EST Infusion Elida Ireland [facility] - Medical Oncology [address] [place] [phone] Elida Ireland [facility] On[facility] Start: 11-28-2024 Adult BMI Screening Adult BMI Screening [facility] Start: 11-28-2024 Tobacco Screening Tobacco Screening [facility] Start: 11-27-2024 End: 11-27-2024 Patient encounter procedure 11/27/2024 1:00 PM EST Off ice Visit [facility] [address] [place] [address] Fernie Clark DO [address], [place] [address] [facility] Start: 11-26-2024 Adult BMI Screening Adult BMI Screening [facility] Start: 11-26-2024 Depression Screening Depression Screening [facility] Start: 11-26-2024 Fall Risk Screening Fall Risk Screening [facility] Start: 11-26-2024 Tobacco Screening Tobacco Screening [facility] Start: 11-26-2024 End: 11-26-2024 ambulatory 11/26/2024 9:30 AM EST Infusion Elida L Beka [facility] - [facility] On[facility] [address] [place] [phone] Elida Ireland [facility] Start: 11-21-2024 Adult BMI Screening Adult BMI Screening [facility] Start: 11-20-2024 Bacteria identified in Urine by Culture Urine Culture [facility] Start: 11-20-2024 Urine culture [facility] Start: 11-18-2024 End: 11-18-2024 ambulatory 11/18/2024 11:30 AM EST Infusion Elida L Beka [facility] On[facility] [address] [place] [phone] Elida Ireland [facility] Start: 11-11-2024 End: 11-11-2024 ambulatory 11/11/2024 9:30 AM EST Infusion Elida L Beka [facility] On[facility] [address] [place] [phone] Elida Ireland [facility] Start: 11-04-2024 End: 11-04-2024 ambulatory 11/04/2024 9:30 AM EST Infusion Elida Ireland [facility] [address] [place] [phone] Elida Ireland [facility] Start: 10-29-2024 End: 10-29-2024 ambulatory 10/29/2024 9:30 AM EST Infusion Elida Ireland [facility] On[facility] [address] [place] [phone] Elida Ireland [facility] Start: 10-22-2024 End: 10-22-2024 ambulatory 10/22/2024 9:30 AM EST Infusion Elida Ireland [facility] On[facility] [address] [place] [phone] Elida Ireland [facility] Start: 10-20-2024 Subsequent hospital visit by physician 10/20/2024 11:33 AM EST Hospital Encounter [facility] [address] [place] [address] Hypomagnesemia [facility] Comment on above: Hypomagnesemia Start: 10-18-2024 Adult BMI Screening Adult BMI Screening [facility] Start: 10-18-2024 Depression Screening Depression Screening [facility] Start: 10-18-2024 Tobacco Screening Tobacco Screening [facility] Start: 10-15-2024 End: 10-15-2024 ambulatory 10/15/2024 9:30 AM EST Infusion Elida Ireland [facility] [address] [place] [phone] Elida Ireland [facility] Start: 10-08-2024 End: 10-08-2024 ambulatory 10/08/2024 9:30 AM EST Infusion Elida Ireland [facility] Oncology [address] [place] [phone] Elida Acen [facility] On[facility] Start: 10-07-2024 End: 10-07-2024 ambulatory 10/07/2024 9:30 AM EST Infusion Elida Ireland [facility] - [facility] Oncology [address] [place] [phone] Elida Ireland [facility] Start: 10-01-2024 End: 10-01-2024 ambulatory 10/01/2024 9:30 AM EST Infusion Elida Ireland [facility] On[facility] [address] [place] [phone] Elida Ireland [facility] Start: 09-26-2024 End: 09-26-2024 Admission to same day surgery center 09/26/2024 12:30 PM EST - 09/26/2024 1:30 PM EST Surgery [facility] [address] [place] [address] Daniel Guerrero, DO [address] [place] [address] ESOPHAGOGASTRODUODENOSCOPY DIAGNOSTIC [84336 (CPT )] [facility] Comment on above: ESOPHAGOGASTRODUODENOSCOPY DIAGNOSTIC [4 3235 (CPT )] Start: 09-26-2024 End: 09-26-2024 Esophagogastroduodenoscopy transoral diagnostic ESOPHAGOGASTRODUODENOSCOPY DIAGNOSTIC ross's esophagus 09/26/2024 12:30 PM EST [facility] Start: 09-26-2024 Subsequent hospital visit by physician 09/26/2024 12:30 PM EST Hospital Encounter [facility] [address] [place] [phone] Daniel Guerrero, DO [address] [place] [address] [facility] Start: 09-25-2024 End: 09-25-2024 ambulatory 09/25/2024 3:40 PM EST Suppo rt Visit [facility] - Pre Admit [address] [place] [address] [facility] Pre Ad[facility] Start: 09-24-2024 End: 09-24-2024 ambulatory 09/24/2024 9:30 AM EST Infusion Elida Ireland [facility] On[facility] [address] [place] [phone] Elida Ireland [facility] Start: 09-17-2024 End: 09-17-2024 ambulatory 09/17/2024 9:30 AM EST Infusion Elida Ireland [facility] [address] [place] [phone] Elida Ireland [facility] Start: 09-10-2024 End: 09-10-2024 ambulatory 09/10/2024 9:30 AM EDT Infusion Elida Ireland [facility] [address] [place] [phone] Elida Ireland [facility] Start: 09-03-2024 End: 09-03-2024 ambulatory 09/03/2024 9:30 AM EDT Infusion Elida Ireland [facility] [address] [place] [phone] Elida Ireland [facility] Start: 08-27-2024 End: 08-27-2024 ambulatory 08/27/2024 9:30 AM EDT Infusion Elida Ireland [facility] [address] [place] [phone] Elida Ireland [facility] Start: 08-20-2024 End: 08-20-2024 ambulatory 08/20/2024 9:30 AM EDT Infusion Elida Ireland [facility] [address] [place] [phone] Elida Ireland [facility] Start: 08-13-2024 End: 08-13-2024 ambulatory 08/13/2024 9:30 AM EDT Infusion Elida Ireland [facility] [address] [place] [address] Elida Ireland [facility] Start: 08-06-2024 End: 08-06-2024 ambulatory 08/06/2024 9:30 AM EDT Infusion Elida Ireland [facility] On[facility] [address] [place] [phone] Elida Ireland [facility] Start: 07-30-2024 End: 07-30-2024 ambulatory 07/30/2024 9:30 AM EDT Infusion Elida Ireland [facility] [address] [place] [phone] Elidarudolph Ireland [facility] Start: 07-24-2024 Fall Risk Screening Fall Risk Screening [facility] Start: 07-23-2024 End: 07-23-2024 ambulatory 07/23/2024 9:30 AM EDT Infusion Elida Ireland [facility] [address] [place] [phone] Elida Ireland [facility] Start: 07-16-2024 End: 07-16-2024 ambulatory 07/16/2024 9:30 AM EDT Infusion Elida Ireland [facility] [address] [place] [phone] Elida Merritt Beka [facility] Start: 07-13-2024 COVID-19 Vaccine ( season) COVID-19 Vaccine ( season) [facility] Start: 07-13-2024 COVID-19 Vaccine ( season) COVID-19 Vaccine () [facility] Start: 07-09-2024 End: 07-09-2024 ambulatory 07/09/2024 9:30 AM EDT Infusion Elida L Beka [facility] [address] [place] [phone] Elida Ireland [facility] Start: 07-02-2024 End: 07-02-2024 ambulatory 07/02/2024 9:30 AM EDT Infusion Elida Ireland [facility] [address] [place] [phone] Elida Ireland [facility] Start: 06-25-2024 End: 06-25-2024 ambulatory 06/25/2024 9:30 AM EDT Infusion Elida Ireland [facility] [address] [place] [address] Elida Ireland [facility] Start: 06-18-2024 End: 06-18-2024 ambulatory 06/18/2024 9:30 AM EDT Infusion Elida Ireland [facility] On[facility] [address] [place] [phone] Elida Ireland [facility] Start: 06-11-2024 End: 06-11-2024 ambulatory 06/11/2024 9:30 AM EDT Infusion Elida Ireland [facility] [address] [place] [phone] [facility] [facility] Start: 06-04-2024 End: 06-04-2024 ambulatory 06/04/2024 9:30 AM EDT Infusion Elida Ireland [facility] [address] [place] [phone] Elida Ireland [facility] Start: 05-28-2024 End: 05-28-2024 ambulatory 05/28/2024 9:30 AM EDT Infusion Elida Ireland [facility] [address] [place] [phone] Elida Ireland [facility] Start: 05-27-2024 End: 05-27-2024 Patient encounter procedure 05/27/2024 1:30 PM EDT Off ice Visit [facility] [address] [place] [address] Fernie Clark, DO [address] [facility], [place] [address] [facility] Start: 05-21-2024 End: 05-21-2024 ambulatory 05/21/2024 9:30 AM EDT Infusion Elida Ireland [facility] [address] [place] [phone] Elida Ireland [facility] Start: 05-14-2024 End: 05-14-2024 ambulatory 05/14/2024 9:30 AM EDT Infusion Elida Ireland [facility] [address] [place] [phone] Elida Ireland [facility] Start: 05-07-2024 End: 05-07-2024 ambulatory 05/07/2024 9:30 AM EDT Infusion Elida Ireland [facility] [address] [place] [phone] Elida Ireland [facility] Start: 04-30-2024 End: 04-30-2024 ambulatory 04/30/2024 9:30 AM EDT Infusion Elida René Beka [facility] [address] [place] [phone] Elida [facility] - [facility] Start: 04-23-2024 End: 04-23-2024 ambulatory 04/23/2024 9:30 AM EDT Infusion Elida Ireland [facility] [address] [place] [phone] Elida Ireland [facility] Start: 04-16-2024 End: 04-16-2024 ambulatory 04/16/2024 9:30 AM EDT Infusion Elida Ireland [facility] [address] [place] [phone] Elida Ireland [facility] Start: 04-09-2024 End: 04-09-2024 ambulatory 04/09/2024 9:30 AM EDT Infusion Elida Ireland [facility] [address] [place] [phone] Eilda Ireland [facility] Start: 04-02-2024 End: 04-02-2024 ambulatory 04/02/2024 9:30 AM EDT Infusion Elida Ireland [facility] [address] [place] [phone] Elida Ireland [facility] Start: 03-26-2024 End: 03-26-2024 ambulatory 03/26/2024 9:30 AM EDT Infusion Elida Ireland [facility] [address] [place] [phone] Elida Ireland [facility] Start: 03-19-2024 End: 03-19-2024 ambulatory 03/19/2024 9:30 AM EDT Infusion Elida Ireland [facility] [address] [place] [phone] Elida Ireland [facility] Start: 03-05-2024 End: 03-05-2024 ambulatory 03/05/2024 9:30 AM EDT Infusion Elida Ireland [facility] [address] [place] [phone] Elida Ireland [facility] Start: 02-27-2024 End: 02-27-2024 ambulatory 02/27/2024 9:30 AM EDT Infusion Elida Ireland [facility] [address] [place] [phone] Elida Ireland [facility] Start: 02-25-2024 End: 02-25-2024 Patient encounter procedure 02/25/2024 2:45 PM EDT Off ice Visit [facility] [address] [place] [address] Fernie Clark, DO [address], [place] [address] [facility] Start: 02-20-2024 End: 02-20-2024 ambulatory 02/20/2024 9:30 AM EDT Infusion Elida L Beka [facility] [address] [place] [phone] Elida Ireland [facility] Start: 02-13-2024 End: 02-13-2024 ambulatory 02/13/2024 9:30 AM EDT Infusion Elida L Beka [facility] [address] [place] [phone] Elida René Beka [facility] Start: 02-06-2024 End: 02-06-2024 ambulatory 02/06/2024 9:30 AM EDT Infusion Elida René Beka [facility] [address] [place] [phone] Elida René Beka [facility] Start: 01-30-2024 End: 01-30-2024 ambulatory 01/30/2024 9:30 AM EDT Infusion Elida L Beka [facility] [address] [place] [phone] Elida René Beka [facility] Start: 01-23-2024 End: 01-23-2024 ambulatory 01/23/2024 9:30 AM EDT Infusion Elida René Beka [facility] [address] [place] [phone] Elida Ireland [facility] Start: 01-16-2024 End: 01-16-2024 ambulatory 01/16/2024 9:30 AM EST Infusion Elida René Beka [facility] [address] [place] [phone] Elida Ireland [facility] Start: 01-09-2024 End: 01-09-2024 ambulatory 01/09/2024 9:30 AM EST Infusion Elida L Beka [facility] Formerly [facility] [place] [address] Elida L Beka [facility] Start: 01-08-2024 End: 01-08-2024 Patient encounter procedure 01/08/2024 1:00 PM EST [facility] [address] [place] [address] [facility] Start: 01-02-2024 End: 01-02-2024 ambulatory 01/02/2024 9:30 AM EST Infusion Elida L Beka [facility] Medical Oncology [address] [place] [phone] Elida L Beka [facility] Start: 12-26-2023 End: 12-26-2023 ambulatory 12/26/2023 9:30 AM EST Infusion Elida L Beka [facility] [address] [place] [phone] Elida L Beka [facility] Start: 12-19-2023 End: 12-19-2023 ambulatory 12/19/2023 9:30 AM EST Infusion Eilda L Beka [facility] [address] [place] [phone] Elida L Beka [facility] Start: 12-12-2023 Administration of varicella zoster vaccine Zoster (Shingles) Vaccine (1 of 2) [facility] Comment on above: Postponed from 03/12/2015 (Patient Refus ed) Start: 12-12-2023 Medicare Annual Wellness Visit Medicare Annual Wellness Visi t [employer] Start: 12-12-2023 End: 12-12-2023 ambulatory 12/12/2023 9:30 AM EST Infusion Elida L Beka [facility] [address] [place] [phone] Elida René Beka [facility] Start: 12-05-2023 End: 12-05-2023 ambulatory 12/05/2023 9:30 AM EST Infusion Elida Ireland [facility] [address] [place] [address] Elida Ireland [facility] Start: 11-28-2023 End: 11-28-2023 ambulatory 11/28/2023 9:30 AM EST Infusion Elida Ireland [facility] Formerly [facility] [place] [address] Elida Ireland [facility] Medical Oncology Start: 11-26-2023 End: 11-26-2023 Patient encounter procedure 11/26/2023 1:30 PM EST Off ice Visit [facility] [address] [place] [address] Fernie Clark DO [address], [facility] [place] [address] [facility] Start: 11-21-2023 End: 11-21-2023 ambulatory 11/21/2023 9:30 AM EST Infusion Elida Ireland [facility] Medical Oncology [address] [place] [phone] Elida Ireland [facility] Oncology Start: 07-13-2023 COVID-19 Vaccine ( season) COVID-19 Vaccine ( season) [facility] Start: 03-12-2015 Administration of varicella zoster vaccine Zoster (Shingles) Vaccine (1 of 2) [facility] Start: 1958 Adult BMI Follow Up Plan Adult BMI Follow Up Plan [facility] End: 05-27-2025 Bacteria identified in Urine by Culture Urine culture (clean catch) Microbiology Routine Dysuria 1 Occurrences starting 05/27/2024 until 05/27/2025 [facility] Work Phone: Comment on above: 1 Occurrences starting 05/27/2024 until 05/27/2025 End: 11-21-2024 Comprehensive metabolic 2000 panel - Serum or Plasma Comprehensive metabolic panel Lab Routine Essential hypertension 1 Occurrences starting 11/21/2023 until 11/21/2024 [employer] Work Phone: Comment on above: 1 Occurrences starting 11/21/2023 until 11/21/2024 End: 09-04-2025 EMG EMG Neurology Routine Paresthesia of right lower extremity 1 Occurrences starting 09/04/2024 until 09/04/2025 Mobile Location, IP Work Phone: Comment on above: 1 Occurrences starting 09/04/2024 until 09/04/2025 End: 09-04-2025 Esophagogastroduodenoscopy EGD GI Routine Ross's esophagus with dysplasia 1 Occurrences starting 09/04/2024 until 09/04/2025 [employer] Comment on above: 1 Occurrences starting 09/04/2024 until 09/04/2025 Esophagogastroduoden oscopy transoral diagnostic ESOPHAGOGASTRODUODENOSCOPY DIAGNOSTIC 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 [facility] End: 11-21-2024 Hemoglobin A1c/Hemoglobin.total in Blood Hemoglobin A1c Lab Routine Type 2 diabetes mellitus with stage 3b chronic kidney disease, with long-term current use of insulin [place] [place] 1 Occurrences starting 11/21/2023 until 11/21/2024 [employer] Comment on above: 1 Occurrences starting 11/21/2023 until 11/21/2024 End: 11-21-2024 Lipid panel Lipid panel Lab Routine Mixe d hyperlipidemia 1 Occurrences starting 11/21/2023 until 11/21/2024 [employer] Comment on above: 1 Occurrences starting 11/21/2023 until 11/21/2024 End: 11-18-2025 Magnesium [Mass/volume] in Serum or Plasma Magnesium Lab Routine Hypomagnesemia weekly for 52 Occurrences starting 11/18/2024 until 11/18/2025 Mobile Location, IP Work Phone: Comment on above: weekly for 52 Occurrences starting 11/18 until 11/18/2025 End: 11-19-2024 Magnesium [Mass/volume] in Serum or Plasma Magnesium Lab STAT Hypomagnesemia weekly for 52 Occurrences starting 11/19/2023 until 11/19/2024 [employer] Work Phone: Comment on above: weekly for 52 Occurrences starting 11/19 until 11/19/2024 End: 11-21-2024 Microalbumin - Albumin: Creatinine Urine Ratio Microalbumin - Albumin: Creatinine Urine Ratio Lab Routine Type 2 diabetes mellitus with stage 3b chronic kidney disease, with long-term current use of insulin [place] [place] 1 Occurrences starting 11/21/2023 until 11/21/2024 [facility] Comment on above: 1 Occurrences starting 11/21/2023 until 11/21/2024 End: 01-16-2025 Potassium [Moles/volume] in Serum or Plasma Potassium Lab Routine 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 [place] [place] 1 Occurrences starting 01/17/2024 until 01/16/2025 [facility] Work Phone: Comment on above: 1 Occurrences starting 01/17/2024 until 01/16/2025 Renal function 2000 panel - Serum or Plasma [facility] Immunizations Immunization Date Immunization Notes Care Provider Fa [facility] 08-31-2021 Influenza, High-dose , Quadrivalent Fernie Furlong DO Work Phone: [facility] 02-01-2021 COVID-19, mRNA, LNP- S, PF, 30mcg/0.3mL Dose Fernie Furlong DO Work Phone: [facility] 01-10-2021 COVID-19, mRNA, LNP- S, PF, 30mcg/0.3mL Dose Fernie Furlong DO Work Phone: [facility] 07-29-2020 influenza, high dose seasonal, preservative-free Fernie Furlong DO Work Phone: [facility] 09-03-2019 influenza, high dose seasonal, preservative-free Fernie Furlong DO Work Phone: [facility] 09-30-2018 tetanus toxoid, redu kiran diphtheria toxoid, and acellular pertussis vaccine, adsorbed Fernie Furlong DO Work Phone: [facility] 09-19-2018 influenza, high dose seasonal, preservative-free Fernie Furlong DO Work Phone: [facility] 09-03-2017 influenza virus vacc ine, unspecified formulation Fernie Furlong DO Work Phone: [facility] 07-27-2015 influenza, seasonal, injectable, preservative free Fernie Furlong DO Work Phone: [facility] 07-27-2015 seasonal influenza, intradermal, preservative free Fernie Furlong DO Work Phone: [facility] 01-15-2015 zoster vaccine, live Fernie Furlong DO Work Phone: [facility] 01-15-2015 zoster vaccine, unspecified formulation Fernie Furlong DO Work Phone: [facility] 07-16-2014 influenza, seasonal, injectable Fernie Furlong DO Work Phone: [facility] 10-20-2013 pneumococcal conjuga te vaccine, 13 valent Fernie Furlong DO Work Phone: [facility] 08-30-2011 tetanus and diphther ia toxoids, not adsorbed, for adult use Fernie Furlong DO Work Phone: [facility] 08-20-2008 pneumococcal polysaccharide vaccine, 23 valent Fernie Furlong DO Work Phone: [facility] Payers Date Payer Category Payer Unknown 11-12-2015 Managed Care Other (unspecified) [facility] [id number] 11-12-[address] [facility] [id number] 11/12/2015-Present [phone] [address] [place] [address] [id number] 09-12-2007 Medicare [id number] [id number] 11-12-1959 Medicare [id number] 11-12-1959 Unknown [id number] 1942 Unknown [id number] 2.16.840.1.790704.3.579.2 .647 1942 Unknown [id number] 2.16.840.1.781348.3.579.2 .593 1942 Unknown [id number] 2.16.840.1.253380.3.579.2 .593 1942 Unknown [id number] 2.16.840.1.327531.3.579.2 .593 1942 Unknown [id number] 2.16.840.1.014724.3.579.2 .593 1942 Unknown [id number] 2.16.840.1.337557.3.579.2 .593 1942 Unknown [id number] 2.16.840.1.887066.3.579.2 .593 1942 Unknown [id number] 2.16.840.1.095045.3.579.2 .593 1942 Unknown [id number] 2.16.840.1.825546.3.579.2 .593 1942 Unknown [id number] 2.16.840.1.847871.3.579.2 .593 1942 Unknown [id number] 2.16.840.1.118040.3.579.2 .593 1942 Unknown [id number] 2.16.840.1.066269.3.579.2 .593 1942 Unknown [id number] 2.16.840.1.507366.3.579.2 .1286 1942 Unknown [id number] 2.16.840.1.015673.3.579.2 .1286 1942 Unknown [id number] 2.16.840.1.293919.3.579.2 .128 1942 Unknown [id number] 2.16.840.1.352549.3.579.2 .196 1942 Unknown [id number] 2.16.840.1.395062.3.579.2 .196 1942 Unknown [id number] 2.16.840.1.108318.3.579.2 .196 1942 Unknown [id number] 2.16.840.1.661933.3.579.2 .196 1942 Unknown [id number] 2.16.840.1.212874.3.579.2 .1286 1942 Unknown [id number] 2.16.840.1.442193.3.579.2 .128 1942 Unknown [id number] 2.16.840.1.332657.3.579.2 .128 1942 Unknown [id number] 2.16.840.1.967184.3.579.2 .128 1942 Unknown [id number] 2.16.840.1.285619.3.579.2 .128 1942 Unknown [id number] 2.16.840.1.054599.3.579.2 .128 1942 Unknown [id number] 2.16.840.1.569899.3.579.2 .1285 1942 Unknown [id number] 2.16.840.1.991206.3.579.2 .1285 1942 Unknown [id number] 2.16.840.1.841531.3.579.2 .1285 1942 Unknown [id number] 2.16840.1.940121.3.579.2 .1285 1942 Unknown [id number] 2.16840.1.759189.3.579.2 .1285 1942 Unknown [id number] 2.840.1.631083.3.579.2 .1285 1942 Unknown [id number] 2.840.1.700549.3.579.2 .1285 1942 Unknown [id number] 2.840.1.600428.3.579.2 .1285 1942 Unknown [id number] 2.840.1.262069.3.579.2 .1285 1942 Unknown [id number] 2.840.1.071867.3.579.2 .1285 1942 Unknown [id number] 2.840.1.230220.3.579.2 .1285 1942 Unknown [id number] 2.840.1.672136.3.579.2 .1285 1942 Unknown [id number] 2.840.1.017692.3.579.2 .1285 1942 Unknown [id number] 2.16840.1.774360.3.579.2 .1285 1942 Unknown [id number] 2.16840.1.973435.3.579.2 .1285 1942 Unknown [id number] 2.16840.1.925544.3.579.2 .1285 1942 Unknown [id number] 2.16.840.1.891449.3.579.2 .1285 1942 Unknown [id number] 2.16.840.1.201456.3.579.2 .1285 1942 Unknown [id number] 2.16.840.1.244879.3.579.2 .1285 1942 Unknown [id number] 2.16.840.1.602172.3.579.2 .1285 1942 Unknown [id number] 2.16840.1.773909.3.579.2 .1285 1942 Unknown [id number] 2.840.1.113372.3.579.2 .1285 1942 Unknown [id number] 2.840.1.852027.3.579.2 .1285 1942 Unknown [id number] 2.16840.1.660817.3.579.2 .1285 1942 Unknown [id number] 2.840.1.766681.3.579.2 .1285 1942 Unknown [id number] 2.16.840.1.176856.3.579.2 .1285 1942 Unknown [id number] 2.16840.1.903960.3.579.2 .1285 1942 Unknown [id number] 2.16840.1.882114.3.579.2 .1285 1942 Unknown [id number] 2.16840.1.445878.3.579.2 .1285 1942 Unknown [id number] 2.16.840.1.007124.3.579.2 .1285 1942 Unknown [id number] 2.16840.1.374536.3.579.2 .1285 1942 Unknown [id number] 2.16.840.1.473847.3.579.2 .1285 1942 Unknown [id number] 2.16.840.1.687168.3.579.2 .1285 1942 Unknown [id number] 2.16.840.1.513506.3.579.2 .1285 1942 Unknown [id number] 2.16.840.1.792189.3.579.2 .1285 1942 Unknown [id number] 2.16.840.1.668718.3.579.2 .1285 1942 Unknown [id number] 2.16.840.1.146393.3.579.2 .1285 1942 Unknown [id number] 2.840.1.720761.3.579.2 .1285 1942 Unknown [id number] 2.16.840.1.585274.3.579.2 .1285 1942 Unknown [id number] 2.16.840.1.463322.3.579.2 .1285 1942 Unknown [id number] 2.16.840.1.335061.3.579.2 .1285 1942 Unknown [id number] 2.16840.1.616591.3.579.2 .1285 1942 Unknown [id number] 2.16.840.1.454932.3.579.2 .1285 1942 Unknown [id number] 2.16.840.1.663940.3.579.2 .1285 1942 Unknown [id number] 2.16.840.1.440759.3.579.2 .1285 1942 Unknown [id number] 2.16.840.1.481986.3.579.2 .1285 1942 Unknown [id number] 2.16.840.1.479660.3.579.2 .1285 1942 Unknown [id number] 2.16.840.1.453620.3.579.2 .1285 1942 Unknown [id number] 2.16.840.1.659372.3.579.2 .1285 1942 Unknown [id number] 2.16.840.1.173316.3.579.2 .1285 1942 Unknown [id number] 2.16.840.1.420013.3.579.2 .1285 1942 Unknown [id number] 2.16.840.1.242401.3.579.2 .1285 1942 Unknown [id number] 2.16.840.1.779920.3.579.2 .1285 1942 Unknown [id number] 2.16.840.1.266503.3.579.2 .1285 1942 Unknown [id number] 2.16.840.1.427198.3.579.2 .1285 1942 Unknown [id number] 2.16.840.1.475126.3.579.2 .1285 1942 Unknown [id number] 2.16.840.1.455908.3.579.2 .1285 1942 Unknown [id number] 2.16.840.1.079623.3.579.2 .1285 1942 Unknown [id number] 2.16.840.1.775580.3.579.2 .1285 1942 Unknown [id number] 2.16.840.1.966288.3.579.2 .1285 1942 Unknown [id number] 2.16.840.1.561582.3.579.2 .1285 1942 Unknown [id number] 2.16.840.1.575869.3.579.2 .128 1942 Unknown [id number] 2.16.840.1.631917.3.579.2 .1285 1942 Unknown [id number] 2.16.840.1.574211.3.579.2 .1285 1942 Unknown [id number] 2.16.840.1.141149.3.579.2 .1285 1942 Unknown [id number] 2.16.840.1.651015.3.579.2 .1285 1942 Unknown [id number] 2.16.840.1.093584.3.579.2 .1285 1942 Unknown [id number] 2.16.840.1.960236.3.579.2 .1285 1942 Unknown [id number] 2.16.840.1.612967.3.579.2 .1285 1942 Unknown [id number] 2.16.840.1.593843.3.579.2 .1285 1942 Unknown [id number] 2.16.840.1.897083.3.579.2 .1285 1942 Unknown [id number] 2.16.840.1.789053.3.579.2 .1285 1942 Unknown [id number] 2.16.840.1.622741.3.579.2 .1285 1942 Unknown [id number] 2.16.840.1.678893.3.579.2 .1285 1942 Unknown [id number] 2.16.840.1.575159.3.579.2 .1285 1942 Unknown [id number] 2.16.840.1.366947.3.579.2 .1285 1942 Unknown [id number] 2.16.840.1.575623.3.579.2 .128 1942 Unknown [id number] 2.16.840.1.953892.3.579.2 .128 1942 Unknown [id number] 2.16.840.1.202972.3.579.2 .128 1942 Unknown [id number] 2.16.840.1.268610.3.579.2 .1285 1942 Unknown [id number] 2.16.840.1.504006.3.579.2 .128 1942 Unknown [id number] 2.16.840.1.867722.3.579.2 .1285 1942 Unknown [id number] 2.16.840.1.805483.3.579.2 .128 1942 Unknown [id number] 2.16840.1.939308.3.579.2 .1285 1942 Unknown [id number] 2.16.840.1.557415.3.579.2 .128 1942 Unknown [id number] 2.16.840.1.844708.3.579.2 .1285 1942 Unknown [id number] 2.16.840.1.956468.3.579.2 .128 1942 Unknown [id number] 2.16840.1.318413.3.579.2 .1285 1942 Unknown [id number] 2.16.840.1.743168.3.579.2 .128 1942 Unknown [id number] 2.16.840.1.811368.3.579.2 .1285 1942 Unknown [id number] 2.16.840.1.079602.3.579.2 .128 1942 Unknown [id number] 2.16.840.1.144565.3.579.2 .1286 Private Health [facility] [id number] Self-pay Self Pay [id number] Social History Date Type Detail Facility Unknown if ever smoked Issue Other Start: 01-08-2024 End: 08-06-2024 Sex Assigned At [facility] Start: 1940 Sex Assigned At Female F [facility] Start: 05-01-2024 End: 05-01-2024 Tobacco smoking status NHIS Never smoked tobacco (finding) [facility] Start: 05-04-2017 Tobacco use and exposure Smokeless tobacco non-user [facility] Start: 09-26-2024 End: 09-30-2024 Alcoholic beverage intake Ex-drinker (finding) [facility] Start: 01-08-2024 End: 08-06-2024 History of Social function [facility] Has the [employer], or [employer] threatened to shut off services in your home in past 12Mo No [facility] [employer] Are you now , , , , never or living with a partner? [facility] How often to you hav e a drink containing alcohol? Never [facility] [employer] [facility] How many standard drinks containing alcohol do you have on a typical day? Patient does not drink [facility] Do you feel stress - tense, restless, nervous, or anxious, or unable to sleep at night because your mind is troubled all the time - these days [OSQ] Not at all [facility] Start: 1940 Sex assigned at Not on file [facility] Start: 06-17-2015 End: 01-05-2025 [facility] ([facility]) [facility] Start: 10-18-2023 End: 09-10-2024 Alcohol intake Current drinker of alcohol (finding) [facility] Medical Equipment Procedure Code Equipment Code Equipment Origin al Text Equipment Identifier Dates 1 strip by other route in the morning and 1 strip before bedtime. [id number] Start: 08-30-2023 End: 11-18-2024 1 [employer]. by miscellaneous route in the morning and 1 Lancet. before bedtime. [id number] Start: 08-30-2023 USE 1 NEEDLE THR EE TIMES A DAY [id number] Start: 07-17-2024 1 strip by other route in the morning and 1 strip before bedtime. [id number] Start: 11-18-2024 USE 1 NEEDLE THR EE TIMES A DAY [id number] Start: 07-23-2023 End: 07-17-2024 Clinical Notes 12-27-2021 [...] cell and transferred documented in this encounter [facility] 01-03-2025 Telephone encounter Note Contract: [phone] Shan Nair re not responding appropriately, not registering well Relayed info to Dr Clark on cell and transferred [facility] 01-03-2025 Miscellaneous Notes Contract: 198 Jemima RE Notifying Doctor of Status Condition not eating or drinking high blood pressure and sleeping more than normal Contract: [address] Clark and Left message to call [facility] Dr. Clark returned page and was connected to the caller. documented in this encounter [facility] 01-03-2025 Telephone encounter Note Contract: 198 [facility] [place] RE Notifying Doctor of Status Condition not eating or drinking high blood pressure and sleeping more than normal [facility] 01-03-2025 Telephone encounter Note Contract: [address] Clark and Left message to call [facility] 01-03-[address] Clark returned page and was connected to the caller. [facility] 12-26-2024 History of Presen t illness Narrative Images from the original note were not included. Patient Name: Adore Wolff Date of : 1940 Date of Service: 12/26/2024 Facility: [facility] [place] Type of Visit: Skilled Visit Subjective Adore [...] dyne, Tetracyclines, Diltiazem, and Linagliptin Code [facility] Objective BP 178/78 Pulse 64 Temp 36.5 [...] Fernie Clark DO documented in this encounter [facility] [employer] 12-19-2024 History of Presen t illness Narrative Patient Name: Adore Wolff Date of : 1940 Date of Service: 12/19/2024 Facility: [facility] Type of Visit: Skilled Visit Subjective Adore [...] Fernie Clark DO documented in this encounter [facility] 12-18-2024 Miscellaneous Notes NEW EMG / NCV ORDER 1st attempt: [employer] contacted patient's spouse and informed him that we have received patient's EMG order. Spouse stated that he is not interested in scheduling at this time, as the patient is currently in a rehab facility but will call back if anything should change. [employer] reassured him that their referral is valid for up to one year should he change his mind - he stated understanding. documented in this encounter [facility] 12-18-2024 Telephone encounter Note NEW EMG / NCV ORDER 1st attempt: [employer] contacted patient's spouse and informed him that we have received patient's EMG order. Spouse stated that he is not interested in scheduling at this time, as the patient is currently in a rehab facility but will call back if anything should change. [employer] reassured him that their referral is valid for up to one year should he change his mind - he stated understanding. [facility] 12-02-2024 Miscellaneous Notes Fanny the nurse at the [facility] called and stated you were in yesterday evening and stated they had aske for a refill for tramodol and the lyrica be sent to [facility]. Also you had discontinued the trazadone [...] I did send in a prescription to [facility] pharmacy in [place]. If it is a different synchrony then I need to resend it somewhere else Spoke with Fanny and she will follow up with Pharmacy documented in this encounter [facility] 12-02-2024 Telephone encounter Note Fanny the nurse at the [facility] called and stated you were in yesterday evening and stated they had aske for a refill for tramodol and the lyrica be sent to [facility]. Also you had discontinued the trazadone and never put an order in. Do you still want this D/C? If so did you want something in replace of it? Also she is very lethargic today. [facility] 12-02-2024 Telephone encounter Note It could not find any order sheets so I gave a verbal order to stop the trazodone to the nurse. I also asked her if she needed any of her controlled substances and she said no. I did send in a prescription to [facility] pharmacy in [place]. If it is a different synchrony then I need to resend it somewhere else [facility] 12-02-2024 Telephone encounter Note Spoke with Fanny and she will follow up with Pharmacy [facility] 12-01-2024 Miscellaneous Notes Contract: 198 Joanie @ [facility] called for orders to have patient sent to hospital for evaluation OC198 I called Dr Clark & transferred him [facility] documented in this encounter [facility] 12-01-2024 Telephone encounter Note Contract: 198 Joanie @ [facility] called for orders to have patient sent to hospital for evaluation [facility] 12-01-2024 Telephone encounter Note OC198 I called Dr Clark & transferred him to [facility] 11-24-2024 History of Presen t illness Narrative [...] possible. Please advise. documented in this encounter [facility] 11-24-2024 Miscellaneous Notes Patient's spouse called CCM [...] be septic Notified documented in this encounter [facility] 11-24-2024 Telephone encounter Note Patient's spouse called [facility] nurse this morning with concerns about [...] today by PCP if possible. Please advise. [facility] 11-24-2024 Telephone encounter Note She has altered mental status she should go to the emergency room. She could be septic [facility] 11-24-2024 Telephone encounter Note Notified [facility] 11-17-2024 History of Presen t illness Narrative Diabetic Supplies: After numerous attempts by SN and MA we have been unable to get in touch with [facility] regarding patient diabetes supplies. Patient is currently out of test strips and would like order sent to new DME supplier. Could you please fax order to [employer] for [employer]rix meter and strips. Fax number: [phone]. [facility] Chronic Care Nurse Roller Stainer [phone] documented in this encounter [facility] 11-17-2024 Miscellaneous Notes Diabetic Supplies: After numerous attempts by and JARON we have been unable to get in touch with [facility] regarding patient diabetes supplies. Patient is currently out of test strips and would like order sent to new DME supplier. Could you please fax order to [facility] for TruMetrix meter and strips. Fax number: [phone]. [facility] Chronic Care Nurse Roller Stainer [phone] Please fax to [employer]. Prescriptions were printed documented in this encounter [facility] 11-17-2024 Telephone encounter Note Diabetic Supplies: After numerous attempts by and JARON we have been unable to get in touch with [facility] regarding patient diabetes supplies. Patient is currently out of test strips and would like order sent to new DME supplier. Could you please fax order to [facility] for [employer]Metrix meter and strips. Fax number: [phone]. [facility] Chronic Care Nurse Roller Stainer [phone] [facility] 11-17-2024 Telephone encounter Note Please fax to [facility]. [facility] 11-04-2024 History of Presen t illness Narrative Patient is here for 2g IV magnesium as scheduled. Mg level 1.7. PIV initiated, blood return noted, flushes with ease. NS started at KVO. Magnesium infused over 2 hours. Line flushed. Pt tolerated well. PIV dc'd, pressure dressing applied. Pt dc'd in stable ambulatory condition with spouse. documented in this encounter [facility] 10-20-2024 History of Presen t illness Narrative Patient mag level is 1.9, will not need magnesium infusion this week. Patient made aware and will continue on with next week's lab draw. documented in this encounter [facility] 10-07-2024 Miscellaneous Notes Call patient and see if she requested this. It was stopped in the summertime documented in this encounter [facility] 10-07-2024 Telephone encounter Note Call patient and see if she requested this. It was stopped in the summertime [facility] 10-07-2024 History of Presen t illness Narrative Patient is here for 2g IV magnesium as scheduled. Mg level 1.7. PIV initiated, blood return noted, flushes with ease. NS started at KVO. Magnesium infused over 2 hours. Line flushed. Pt tolerated well. PIV dc'd, pressure dressing applied. Pt dc'd in stable ambulatory condition with spouse. documented in this encounter [facility] 10-01-2024 History of Presen t illness Narrative Pt here for 2g IV magnesium as scheduled. Mg level 1.7. PIV initiated to RFA. Brisk blood return noted, flushes with ease. NS started at KVO. Magnesium infused over 2 hours without incident. Pt tolerated well. Line flushed. PIV dc'd. Pressure dressing applied. Dc'd in stable ambulatory condition with updated treatment calendar. documented in this encounter [facility] 09-10-2024 Miscellaneous Notes NEW EMG/NCV ORDER First attempt- Left Voicemail Dx: Paresthesia of right lower extremity [R20.2]/ Referred by: Fernie Clark DO Referred to: Please schedule patient in the next available appointment with provider. Patient returned call and patient was scheduled for next available EMG in [place]. Patient was placed on waitlist. Appointment: 12/15/2024 at 12:30pm with Dr. Urbano documented in this encounter [facility] 09-10-2024 Telephone encounter Note NEW EMG/NCV ORDER First attempt- Left Voicemail Dx: Paresthesia of right lower extremity [R20.2]/ Referred by: Fernie Clark DO Referred to: Please schedule patient in the next available appointment with provider. [facility] 09-10-2024 Telephone encounter Note Patient returned call and patient was scheduled for next available EMG in [place]. Patient was placed on waitlist. Appointment: 12/15/2024 at 12:30pm with Dr. Urbano [facility] 09-10-2024 History of Presen t illness Narrative Pt here for 2g IV magnesium. Mg level 1.7. PIV initiated to RFA. Brisk blood return verified, and flushes with ease. Magnesium infused over 2 hours without incident. Pt tolerated well. Flushed with saline and PIV dc'd. Pt dc'd in stable ambulatory condition. documented in this encounter [facility] 09-01-2024 History of Presen t illness Narrative Pt magnesium level 1.8. called to notify patient to see if shed like to notify dr medina office to see if she should still get mg infusion since she's WNL. Pt requests to take the week off and recheck mg level in one week. documented in this encounter [facility] 08-27-2024 History of Presen t illness Narrative Patient is here for 2g IV magnesium as scheduled. Mg level 1.6. PIV initiated, blood return noted, flushes with ease. NS started at KVO. Magnesium infused over 2 hours. Line flushed. Pt tolerated well. PIV dc'd, pressure dressing applied. Pt dc'd in stable ambulatory condition with spouse. documented in this encounter [facility] 08-22-2024 History of Presen t illness Narrative When was the last Refill? 05/27/24 Is this medication Historical? [place] of preferred Pharmacy? [facility] When was the last OV with provider? 05/27/24 When is the next scheduled visit? 11/27/24 documented in this encounter [facility] 08-20-2024 History of Presen t illness Narrative Pt here for 2g IV magnesium. Mg level 1.6. PIV initiated to RFA. Brisk blood return noted, flushes with ease. Magnesium infused over 2 hours. Line flushed. Pt tolerated well. PIV dc'd. Pressure dressing applied. Dc'd in stable ambulatory condition. documented in this encounter [facility] 08-13-2024 History of Presen t illness Narrative Pt here for 2g IV magnesium per pt reqeust. Mg level 1.6. PIV initiated to LFA. Brisk blood return noted, flushes with ease. NS started at KVO. Magnesium infused over 2 hours. Pt tolerated well. PIV dc'd. Pressure dressing applied. Dc'd in stable ambulatory condition. documented in this encounter [facility] 08-06-2024 History of Presen t illness Narrative Pt here for 2g IV magnesium per pt reqeust. Mg level 1.5. PIV initiated to RFA. Brisk blood return noted, flushes with ease. NS started at KVO. Magnesium infused over 2 hours. Pt tolerated well. PIV dc'd. Pressure dressing applied. Dc'd in stable ambulatory condition. documented in this encounter [facility] 07-30-2024 History of Presen t illness Narrative Patient presents for Magnesium infusion. Mg 1.5 drawn 07/28/2024 Patient requests 2g of Magnesium today. PIV initiated, brisk blood return noted. Flushed with NS. Magnesium infusing as ordered over 2 hours. Patient tolerated infusion well. PIV discontinued, gauze secured with coban in place. Discharged in stable condition. documented in this encounter [facility] 07-23-2024 History of Presen t illness Narrative Patient presents for Magnesium infusion. Mg 1.6 drawn 07/21/2024 Patient will received 2g of Magnesium today per orders. PIV initiated, brisk blood return noted. Flushed with NS. Magnesium infusing as ordered over 2 hours. Patient tolerated infusion well. PIV discontinued, gauze secured with coban in place. Discharged in stable condition. documented in this encounter [facility] 07-16-2024 History of Presen t illness Narrative Pt here for 4gm IV magnesium for mg level 1.5. PIV initiated to RFA. Brisk blood return noted, flushes with ease. NS started at KVO. 4g IV magnesium infused over 4 hours without incident. Line flushed. PIV removed, pressure dressing applied. Dc'd in stable ambulatory condition. documented in this encounter [facility] 07-09-2024 History of Presen t illness Narrative Pt here for 2gm IV magnesium for mg level 1.6. PIV initiated to RFA. Brisk blood return noted, flushes with ease. NS started at KVO. 2g IV magnesium infused over 2 hours without incident. Line flushed. PIV removed, pressure dressing applied. Dc'd in stable ambulatory condition. documented in this encounter [facility] 07-02-2024 History of Presen t illness Narrative Pt here for 2gm IV magnesium for mg level 1.6. PIV initiated to RFA. Brisk blood return noted, flushes with ease. NS started at KVO. 2g IV magnesium infused over 2 hours without incident. Line flushed. PIV removed, pressure dressing applied. Dc'd in stable ambulatory condition. documented in this encounter [facility] 06-25-2024 History of Presen t illness Narrative Pt here for 2gm IV magnesium for mg level 1.7. PIV initiated to RFA. Brisk blood return noted, flushes with ease. NS started at KVO. 2g IV magnesium infused over 2 hours without incident. Line flushed. PIV removed, pressure dressing applied. Dc'd in stable ambulatory condition. documented in this encounter [facility] 06-18-2024 History of Presen t illness Narrative Patient is here for 2g IV magnesium as scheduled. Mg level 1.7. PIV initiated, blood return noted, flushes with ease. NS started at KVO. Magnesium infused over 2 hours. Line flushed. Pt tolerated well. PIV dc'd, pressure dressing applied. Pt dc'd in stable ambulatory condition with spouse. documented in this encounter [facility] 06-11-2024 History of Presen t illness Narrative [...] condition with spouse. documented in this encounter [facility] 05-29-2024 Miscellaneous Notes ----- Message from Dr. [...] mg Patient notified documented in this encounter [facility] 05-29-2024 Telephone encounter Note ----- Message from [...] bring us a new sample for testing. [facility] 05-29-2024 Telephone encounter Note Adore will come in tomorrow to provide a repeat urine sample in office. She also was wondering about her low dose asprin. She had discontinued it about 1.5 months ago due to frequent nose bleeds. The nose bleeds are gone and wonders if she should start her asprin again. [facility] 05-29-2024 Telephone encounter Note Okay great! Yes she can restart aspirin 81 mg [facility] 05-29-2024 Telephone encounter Note Patient notified [facility] 05-28-2024 History of Presen t illness Narrative Patient presents for Magnesium infusion. Mg 1.6 drawn 05/26/2024 Patient will received 2g of Magnesium today per orders. PIV initiated, brisk blood return noted. Flushed with NS. Magnesium infusing as ordered over 2 hours. Patient tolerated infusion well. PIV discontinued, gauze secured with coban in place. Discharged in stable condition. documented in this encounter [facility] 05-27-2024 History of Presen t illness Narrative Subjective Patient ID: Adore Wolff is a 83 y.o. female. Adore presents today for diabetic recheck. She is taking her medications and not having any side effects. She has had it upper respiratory infection for a couple weeks it is better but she still has a nagging cough. She tried [id number] cough medicine but it made it worse. [...] Exam Vitals reviewed. Exam conducted with a back tender insulation board present (Ifeanyi Johnson MS III). Constitutional: General: [...] stage 4 chronic kidney disease and [place] [place] POCT Hemoglobin A1c - POCT urinalysis dipstick only A1c wsa 7.1% Continue current regimen Dysuria - Urine culture (clean catch); Future Urine was abnormal so will check C&S. Acute rhinitis Will treat with loratadine 10 mg daily Morbid obesity [place] [place] She is morbidly obese. She would benefit from wt loss. Incontinence of feces with fecal urgency Recommended to stop reglan and try fiber supplement to give more bulk to stool.. Other orders - loratadine (CLARITIN) 10 mg tablet; Take 1 tablet (10 mg total) by mouth daily as needed for allergies. [facility] 05-21-2024 History of Presen t illness Narrative Pt here for 2g IV magnesium for mg level of 1.7. PIV initiated to RFA. Brisk blood return noted, flushes with ease. NS started at KVO. Magnesium infused over 2 hours. Pt tolerated well. Line flushed. PIV dc'd. Pressure dressing applied. Dc'd in stable ambulatory condition. documented in this encounter [facility] 05-14-2024 History of Presen t illness Narrative Pt here for 2g IV magnesium for mg level 1.6. PIV initiated to RFA. Brisk blood return noted, flushes with ease. NS started at KVO. Magnesium infused over 2 hours. Pt tolerated well. PIV dc'd. Pressure dressing applied. Dc'd in stable ambulatory condition with spouse. documented in this encounter [facility] 05-07-2024 History of Presen t illness Narrative Patient is here for 4g IV magnesium as scheduled. Mg level 1.4. PIV initiated, blood return noted, flushes with ease. NS started at KVO. Magnesium infused over 2 hours. Line flushed. Pt tolerated well. PIV dc'd, pressure dressing applied. Pt dc'd in stable ambulatory condition with spouse. documented in this encounter [facility] 04-30-2024 History of Presen t illness Narrative [...] in stable condition. documented in this encounter [facility] 04-23-2024 History of Presen t illness Narrative Pt here for 4g IV magnesium for mg level of 1.4. PIV initiated to RFA. Brisk blood return noted, flushes with ease. NS started at KVO. Magnesium infused over 4 hours as ordered. Pt tolerated well. Line flushed. PIV dc'd, pressure dressing applied. Pt dc'd in stable condition. documented in this encounter [facility] 04-16-2024 History of Presen t illness Narrative Pt here for 2g IV magnesium as scheduled. Mg level 1.6. PIV initiated to RFA. Brisk blood return noted, flushes with ease. NS started at KVO. Magnesium infused over 2 hours. Pt tolerated well. PIV dc'd pressure dressing applied. Pt dc'd in stable ambulatory condition. V/u of future appointments. documented in this encounter [facility] 04-09-2024 History of Presen t illness Narrative [...] in stable condition. documented in this encounter [facility] 04-02-2024 History of Presen t illness Narrative Pt here for IV magnesium as scheduled. Mg level 1.7. PIV initiated to RFA. Blood return verified. Flushes with ease. NS started at KVO. 2g magnesium infused over 2 hours. Pt tolerated well. PIV dc'd. Pressure dressing applied. Pt dc'd in stable ambulatory condition. documented in this encounter [facility] 03-26-2024 History of Presen t illness Narrative Pt here for IV magnesium as scheduled for mg level of 1.6. PIV initiated to RFA. Brisk blood return noted, flushes with ease. NS started at KVO. Magnesium infused over 2 hours. Pt tolerated well. Line flushed. PIV dc'd- pressure dressing applied. Pt dc'd in stable ambulatory condition. documented in this encounter [facility] 03-19-2024 History of Presen t illness Narrative Pt here for IV magnesium for mg level 1.6. PIV initiated to RFA after several attempts. Brisk blood return noted, flushes with ease. NS started at KVO. Magnesium infused over 2 hours. Pt tolerated well. PIV dc'd- pressure dressing applied. Pt dc'd in stable ambulatory condition. V/u of future appts. [facility] 03-12-2024 History of Presen t illness Narrative Pt here for Mg infusion. Mg 1.6, 2GM Mg indicated per order. PIV initiated to RFA, brisk blood return noted, flushes without difficulty. 2gm Mg infused over 2 hours, pt tolerated well. PIV discontinued, pressure dressing applied. Calendar provided, pt discharged ambulatory in stable condition. [facility] 02-25-2024 History of Presen t illness Narrative Subjective Patient ID: Adore Wolff is a 83 y.o. female. Adore presents for a [id number]-ox-[id number] visit to try to get pads for [...] Exam Vitals reviewed. Exam conducted with a back tender insulation board present (). Constitutional: Appearance: She is morbidly [...] make a referral. documented in this encounter [facility] 02-25-2024 History of Presen t illness Narrative Patient and were updated on normal magnesium level of 1.9. She is still very bruised on her arms and wishes to continue to hold infusions at this time since level is normal to allow her arms/veins time to be less bruised. She will continue to have weekly lab checks completed. documented in this encounter [facility] 02-20-2024 History of Presen t illness Narrative Received call back from Dr. Conley's office. Instructed to hold magnesium infusions at this time. Will update patient and have pt continue to have labs checked to monitor. documented in this encounter [facility] 02-19-2024 History of Presen t illness Narrative Pt magnesium level 1.9. called to notify patient and pt states her arms are still very bruised up from multiple IV attempts. Pt request to skip infusion this week to give her veins/arms a break since her mg level is wnl. Pt will recheck lab next week. documented in this encounter [facility] 02-13-2024 History of Presen t illness Narrative Pt here for 2g IV magnesium as scheduled for mg level 2.0. Tolerating infusions well. PIV initiated to LFA- after multiple attempts. Brisk blood return noted, flushes with ease. NS started at KVO. Magnesium infused over 2 hours. Pt tolerated well. PIV dc'd, pressure dressing applied. Pt dc'd in stable ambulatory condition. documented in this encounter [facility] 02-06-2024 History of Presen t illness Narrative Pt here for 2g IV magnesium as scheduled for mg level 1.8. Tolerating infusions well. PIV initiated to RFA. Brisk blood return noted, flushes with ease. NS started at KVO. Magnesium infused over 2 hours. Pt tolerated well. PIV dc'd, pressure dressing applied. Pt dc'd in stable ambulatory condition. documented in this encounter [facility] 01-30-2024 History of Presen t illness Narrative Patient is here for 2g IV magnesium as scheduled. Mg level 1.8. PIV initiated, blood return noted, flushes with ease. NS started at KVO. Magnesium infused over 2 hours. Line flushed. Pt tolerated well. PIV dc'd, pressure dressing applied. Pt dc'd in stable ambulatory condition with spouse. documented in this encounter [facility] 01-23-2024 History of Presen t illness Narrative Patient is here for 2g IV magnesium as scheduled. Mg level 1.7. PIV initiated on second attempt, blood return noted, flushes with ease. NS started at KVO. Magnesium infused over 2 hours. Line flushed. Pt tolerated well. PIV dc'd, pressure dressing applied. Pt dc'd in stable ambulatory condition with spouse. documented in this encounter [facility] 01-16-2024 History of Presen t illness Narrative [...] of upcoming appointments. documented in this encounter [facility] 01-09-2024 History of Presen t illness Narrative Pt here for 2g IV magnesium for mg level of 1.7. Tolerating infusions well. PIV initiated to RFA. Brisk blood return, flushes with ease. NS started at KVO. Magnesium infused over 2 hours. Pt tolerated well. PIV flushed and dc'd. Pressure dressing applied. Dc'd in stable condition. documented in this encounter [facility] 01-08-2024 History of Presen t illness Narrative [...] Do you have a durable power of banking attorney?: Yes Cognitive Screening Do you have [...] year (around 01/08/2025). documented in this encounter [employer] 01-02-2024 History of Presen t illness Narrative Patient is here for 2g IV magnesium as scheduled. Mg level 1.7. PIV initiated on third attempt, blood return noted, flushes with ease. NS started at KVO. Magnesium infused over 2 hours. Line flushed. Pt tolerated well. PIV dc'd, pressure dressing applied. Pt dc'd in stable ambulatory condition with spouse. documented in this encounter [facility] 12-26-2023 History of Presen t illness Narrative Pt here for 2g IV magnesium infusion as scheduled. Mg level 1.6. Tolerating infusions well. PIV initiated to RFA. Brisk blood return noted, flushes with ease. NS started at KVO. Magnesium infused over 2 hours. Pt tolerated well. Line flushed. PIV dc'd. Pressure dressing applied. Pt v/u of future appointments. documented in this encounter [facility] 12-19-2023 History of Presen t illness Narrative Pt here for 4g IV magnesium infusion as scheduled. Mg level 1.5. Tolerating infusions well. PIV initiated to LFA. Brisk blood return noted, flushes with ease. NS started at KVO. Magnesium infused over 4 hours. Pt tolerated well. Line flushed. PIV dc'd. Pressure dressing applied. Pt v/u of future appointments. documented in this encounter [facility] 12-12-2023 History of Presen t illness Narrative Patient is here for 2g IV magnesium as scheduled. Mg level 1.7. PIV initiated blood return noted, flushes with ease. NS started at KVO. Magnesium infused over 2 hours. Line flushed. Pt tolerated well. PIV dc'd, pressure dressing applied. Pt dc'd in stable ambulatory condition with spouse. documented in this encounter [facility] [employer] 12-05-2023 History of Presen t illness Narrative Patient here for 2g IV magnesium as scheduled. Mg level 1.7. PIV initiated blood return noted, flushes with ease. NS started at KVO. Magnesium infused over 2 hours. Line flushed. Pt tolerated well. PIV dc'd, pressure dressing applied. Pt dc'd in stable ambulatory condition with spouse. documented in this encounter [facility] 12-04-2023 Miscellaneous Notes Patient called and these are both covered by insurance and she would like these sent in instead of what the alternative was documented in this encounter [facility] 12-04-2023 Telephone encounter Note Patient called and these are both covered by insurance and she would like these sent in instead of what the alternative was [facility] 11-28-2023 History of Presen t illness Narrative Patient here for 2g IV magnesium as scheduled. Mg level 1.8. PIV initiated to LFA Brisk blood return noted, flushes with ease. NS started at KVO. Magnesium infused over 2 hours. Line flushed. Pt tolerated well. PIV dc'd, pressure dressing applied. Pt dc'd in stable ambulatory condition with spouse. documented in this encounter [facility] 11-26-2023 History of Presen t illness Narrative Subjective Patient ID: Adore Wolff is a 83 y.o. female. Adore presents for recheck of multiple problems. She is currently getting a series of magnesium infusions due to critically low magnesium level. She was asymptomatic. She got her labs done today at [facility]. She has information regarding her [...] Objective Physical Exam Exam conducted with a back tender insulation board present (). Constitutional: Appearance: She is morbidly [...] type 2 diabetes mellitus ([facility]) Blood pressure essentially at goal. Await CMP results. Await A1c and ACR results. Mixed hyperlipidemia Await lipid results Hypomagnesemia Managed by Nephrology. 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 Continue omeprazole. PPI can also lead to low magnesium. Morbid obesity ([facility]) She is morbidly obese. She [...] the skin nightly. documented in this encounter [facility] 11-21-2023 History of Presen t illness Narrative [...] Treatment calendar provided. documented in this encounter [facility] 11-19-2023 Note Continue statin [facility] 11-19-2023 Note Hypertension is elev ated in office today was 192/86 and repeat b/p improved 158/80 Typically b/p is 122-150/60-80 at home and at other physician offices. Continue all meds ramipril, coreg [facility] 11-19-2023 Note Coronary artery dise ase is stable Continue GDMT- ASA, lipitor, coreg continue risk factor modifications- heart healthy diet, regular exercise as tolerated and continue all medications. [facility] 11-19-2023 Note Patient here for 1 y ear follow up CAD, hypertension, and venous insufficiency. Had labs a week or so ago for floor assembler and says she's in the process of [...] are negative. [facility] 11-19-2023 Note [facility] CARDIOLOGY PROGR ESS NOTE [...] labs a week or so ago for floor assembler and says she's in the process of [...] not included)... [facility] 08-23-2023 Evaluation note Encounter Date Diagnosis Assessment [...] magnesium diet and provide information about it. Issue Other 03-16-2023 NoteCONSULTATION CONSULTATION DATE: 01/25/2023 HISTORY: [...] and to talk with Dr. Conley, their floor assembler, to confirm that this was acceptable, considering her stage 3 kidney disease. Other than that, we will see her in three months' time at the clinic, unless otherwise indicated. Patient and agree with this plan.[facility] 01-25-2023 Evaluation note* Encounter Date [...] magnesium diet and provide information about it. Issue [facility] Chief Complaint: Patient being seen via telephone call for 6 mo follow up hypertension, CAD, and CKD. She denies chest pain and increased SOB with exertion. C/o increased LE edema but denies weight gain. Says her floor assembler Dr. Conley advised her to call him [...] inhibitor/receptor micki. 4. Follow up with [facility] Cardiology in the next 2 [...] creatinine and electrolytes; she follows with her floor assembler Leg swelling is likely related to venous [...] was initiated by the patient and conducted [id number] with use of audio-only real time telephone communication between patient and provider for a virtual visit. Verbal consent to provide and bill for this service was obtained on 12/06/2022. No signature was obtained due to the COVID-19 pandemic. Moe Parham MD, MPH, FACC, [facility], [facility] Interventional Cardiology Pager Email: [email or web address] NoteCONSULTATION CONSULTATION DATE: 10/26/2022 HISTORY OF PRESENT ILLNESS: This is a very pleasant, 82-year-old female who presents with her for a three month follow up. Today, she reports 0/10 pain and is overall doing well. At her last appointment on 08/02/2022, we had switched her medications from Pelsor to tramadol extended release 100 mg per day, which she feels is helping very much. It is lasting for her better than the Pelsor. She is also on Lyrica 75 mg [...] indicated, and patient agrees with this plan.[id number] NoteCONSULTATION CONSULTATION DATE: 08/02/2022 HISTORY OF PRESENT ILLNESS: This is a pleasant, 81-year-old female, accompanied by her , returning to the clinic for a three month follow up for chronic lower back pain. She was last seen on 04/25/[address] Stern which, at that time, her Pelsor was decreased to 5/325 daily p.r.n., which [...] increased to 100 mg extended release daily. Pelsor will be discontinued. Education was given regarding use of the menthol heat rub with Voltaren gel and heat application to her back. Vitamin and nutrition importance was discussed. Patient will be seen back in the clinic in three months' time, unless otherwise indicated, and patient agrees to this.[id number] Evaluation note* Encounter Date Diagnosis Assessment Notes [...] any recent gout flare. She takes allopurinol. Issue Other 06-22-2022 Evaluation note* Encounter Date Diagnosis Assessment Notes Treatment Notes Treatment Clinical Notes Apr, Hypertensive chronic kidney disease with stage 1 through stage 4 chronic kidney disease, or unspecified chronic kidney disease (ICD-10 - I12.9) [place] [employer] Other 06-14-2022 NoteCONSULTATION CONSULTATION DATE: 04/25/2022 CHIEF [...] 4/10. She is managing the pain with Pelsor 5/325 one table daily and tramadol 50 [...] the patient's pain medication which would be Pelsor 5/325 one tablet daily and tramadol 50 [...] she need us. CC: Fernie Clark D.O. [facility] Signed and Approved by: DR LUISA STERN . 05/02/2022 08:52:00[facility]05-26-2022 Evaluation note* Encounter Date Diagnosis Assessment [...] any recent gout flare. She takes allopurinol. Issue Other 05-19-2022 NoteCONSULTATION CONSULTATION DATE: 03/30/2022 This [...] She was given a 14-day prescription of Pelsor 5/325 b.i.d. to help with the acuity of her post-procedure pain. Today she reports the Pelsor is gone and she is back on [...] and rather we will maintain her on Pelsor 5/325 b.i.d. which proved to be the [...] and agree and would like to proceed. [facility] Signed and Approved by: JONNY CAMPUZANO . 04/03/2022 15:07:00[facility]02-15-2022 Evaluation note* Encounter Date Diagnosis Assessment [...] any recent gout flare. She takes allopurinol. [place] [employer] Other Evalunpuva noteNo InformationNortKindred Hospital [facility] Other evalunyosl noteNo assessment information available [facility] Work Phone: evalumyvve note* Diagnosis Onset Date Resolution Status Anemia of renal disease acut e CKD (chronic kidney disease) stage 3, GFR 30-59 ml/min acute [id number] acute Hyperuricemia acute Hypomagnesemia acute Secondary hyperparathyroidism acute Type 2 diabetes mellitus wit h diabetic chronic kidney disease acute [facility] Work Phone: evaluabvaq note* Diagnosis Hypomagnesemia- Primary Disorders of magnesium metabolism documented in this encounter [facility] [employer] SystemEvaluation note* Diagnosis Hypomagnesemia- Primary Disorders of magnesium metabolism documented in this encounter [facility] note* Diagnosis 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 ([facility] Primary Morbid obesity ([facility]) Morbid obesity documented in this encounter [facility] note* Diagnosis 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 ([facility])- Primary Morbid obesity ([facility]) Morbid obesity [facility]* Diagnosis Lumbar stenosis with neurogenic claudication- Primary [facility] [employer] [facility]* Diagnosis Lumbar stenosis with neurogenic claudication documented in [facility] [employer] [facility]* Diagnosis Hypomagnesemia- Primary Disorders of magnesium metabolism documented in this encounter [facility] [employer] SystemEvaluation note* Diagnosis Hypomagnesemia- Primary Disorders of magnesium metabolism documented in this encounter [facility] note* Diagnosis Hypomagnesemia- Primary Disorders of magnesium metabolism documented in this encounter [facility] note* Diagnosis Mixed hyperlipidemia- Primary Type 2 diabetes mellitus with stage 3b chronic kidney disease, with long-term current use of insulin ([facility]) Essential hypertension Unspecified essential hypertension documented in this encounter [facility] note* Diagnosis Hypomagnesemia- Primary Disorders of magnesium metabolism documented in this encounter [facility] note* Diagnosis 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 ([facility])- Primary Mixed hyperlipidemia Hypomagnesemia 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 Morbid [place] Morbid obesity Chronic obstructive pulmonary disease, unspecified COPD type ([facility] documented in this encounter [facility] note* Diagnosis Hypomagnesemia- Primary Disorders of magnesium metabolism documented in this encounter [facility] note* Diagnosis Hypomagnesemia- Primary Disorders of magnesium metabolism documented in this encounter [facility] note* Diagnosis Hypomagnesemia- Primary Disorders of magnesium metabolism documented in this encounter [facility] note* Diagnosis Hypomagnesemia- Primary Disorders of magnesium metabolism documented in this encounter [facility] note* Diagnosis Hypomagnesemia- Primary Disorders of magnesium metabolism documented in this encounter [facility] note* Diagnosis Acute cystitis with hematuria- Primary Essential hypertension Unspecified essential hypertension Acute right-sided low back pain without sciatica Nausea Nausea alone Anxiety Anxiety state, unspecified documented in this encounter [facility] note* Diagnosis Medicare annual wellness visit, subsequent- Primary Screening for depression documented in this encounter [facility] note* Diagnosis Constipation, unspecified constipation type- Primary Essential hypertension Unspecified essential hypertension Dysuria History of UTI History of sepsis Personal history of other infectious and parasitic disease Chronic low back pain without sciatica, unspecified back pain laterality documented in this encounter [facility] note* Diagnosis 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 ([facility])- Primary Dysuria Acute rhinitis Acute nasopharyngitis (common cold) Morbid obesity ([facility] Morbid obesity Incontinence of feces with fecal urgency documented in this encounter [facility] note* Diagnosis 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 ([facility])- Primary documented in this encounter [facility] note* Diagnosis Hypomagnesemia- Primary Disorders of magnesium metabolism documented in this encounter [facility] note* Diagnosis Hypomagnesemia- Primary Disorders of magnesium metabolism documented in this encounter [facility] note* Diagnosis Hypomagnesemia- Primary Disorders of magnesium metabolism documented in this encounter [facility] note* Diagnosis Urinary incontinence, unspecified type- Primary Abnormality of gait and mobility documented in this encounter [facility] note* Diagnosis Hypomagnesemia- Primary Disorders of magnesium metabolism documented in this encounter [facility] note* Diagnosis Hypomagnesemia- Primary Disorders of magnesium metabolism documented in this encounter [facility] note* Diagnosis 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 ([facility])- Primary Morbid obesity ([facility]) Morbid obesity documented in this encounter [facility] note* Diagnosis Paresthesia of right lower extremity- Primary Ross's esophagus with dysplasia documented in this encounter [facility] note* Diagnosis Hypomagnesemia- Primary Disorders of magnesium metabolism documented in this encounter [facility] note* Diagnosis Lumbar stenosis with neurogenic claudication documented in this encounter [facility] note* Diagnosis Lumbar stenosis with neurogenic claudication [facility] - [facility]* Type Description Date [...] IN LOWER BACK Hospitalization History see above Issue Other History general Narrative - Reported* Type [...] HEART CATH 03/30/2021 Hospitalization History see above Issue Other History general Narrative - Reported* Type [...] IN LOWER BACK Hospitalization History see above Issue Other InstructionsNot on filedocumented in this encounter [...] kidney disease) stage 3, GFR 30-59 ml/min [id number] Hyperuricemia Hypomagnesemia Secondary hyperparathyroidism Type 2 diabetes mellitus with diabetic chronic kidney disease Chief Complaint Admit Date Unknown November 20, 2024 4: 20am Chief Complaint Admit Date Unknown November 20, 2024 4: 20am Unknown January 03, 2025 11:10pm Additional Source Comments INFORMATION SOURCE (unrecogn ized section and content) DATE CREATED AUTHOR 04/06/2021 [facility] DATE CREATED AUTHOR AUTHOR'S ORGANIZ ATION 05/12/2022 [facility] DATE CREATED AUTHOR AUTHOR'S ORGANIZ ATION 03/15/2023 [facility] DATE CREATED AUTHOR AUTHOR'S ORGANIZ ATION 11/19/2023 [facility] DATE CREATED AUTHOR AUTHOR'S ORGANIZ ATION 06/03/2024 [facility] DATE CREATED AUTHOR AUTHOR'S ORGANIZ ATION 11/07/2024 [facility] DATE CREATED AUTHOR AUTHOR'S ORGANIZ ATION 11/23/2024 [facility] DATE CREATED AUTHOR AUTHOR'S ORGANIZ ATION 01/05/2025 [facility] DATE CREATED AUTHOR AUTHOR'S ORGANIZ ATION 01/07/2025 [facility] REASON FOR VISIT (unrecogniz ed [...] 01, 2024 End: May 01, 2024 Gia Conley MD Attending Provider Active Start : May 01, 2024 End: May 01, 2024 Team Status: Inactive Member Role Status Dates Fernie Clark DO Primary Care Provider Active Gia Conley MD Attending Provider Active Network Systems Integrator Relationship Specialty Start Date End Date Fernie Clark DO [address], [facility] [place] [address] PCP - General Family Medicine 05/09/17 Flori Mon [facility] Nurse - [employer] 06/26/24 [employer] Integrator Relationship Specialty Start Date End Date Fernie Clark DO [address], [facility] [place] [address] PCP - General Family Medicine 05/09/17 Flori Mon [facility] Nurse - [employer] 06/26/24 [employer] Systems Integrator Relationship Specialty Start Date End Date Fernie Clark [address], [place] [address] PCP - General Family Medicine 05/09/17 Flori Mon [facility] Nurse - [employer] 06/26/24 [employer] Systems Integrator Relationship Specialty Start Date End Date Tracyangel luisFernie [address], [place] [address] PCP - General Family Medicine 05/09/17 Flori Mon [facility] Nurse - [employer] 06/26/24 [employer] Systems Integrator Relationship Specialty Start Date End Date Tracyangel luisFernie [address], [place] [address] PCP - General Family Medicine 05/09/17 Flori Elieser [facility] Nurse - [employer] 06/26/24 Network Systems Integrator Relationship Specialty Start Date End Date SubhapoornimaFernie [address], [place] [address] PCP - General Family Medicine 05/09/17 Clari Costa [facility] Nurse - [employer] 11/17/24 Network Systems Integrator Relationship Specialty Start Date End Date SubhapoornimaFernie [address], [place] [address] PCP - General Family Medicine 05/09/17 Clari Costa [facility] Nurse - [employer] 11/17/24 Network Systems Integrator Relationship Specialty Start Date End Date Fernie Clark DO [address], [place] [address] PCP - General Family Medicine 05/09/17 Clari Alandro [facility] Nurse - [employer] 11/17/24 Network Systems Integrator Relationship Specialty Start Date End Date Fernie Clark DO [address], [place] [address] PCP - General Family Medicine 05/09/17 [facility] Nurse - [employer] 11/17/24 [employer] Systems Integrator Relationship Specialty Start Date End Date Fernie Clark DO [address], [place] [address] PCP - General Family Medicine 05/09/17 Clari Alasandro [facility] Nurse - [employer] 11/17/24 Network Systems Integrator Relationship Specialty Start Date End Date Fernie Clark DO [address], [place] [address] PCP - General Family Medicine 05/09/17 [employer] Relationship Specialty Start Date End Date Fernie Clark DO [address] [place] [address] PCP - General Family Medicine 05/09/17 Network Systems Integrator Relationship Specialty Start Date End Date Fernie Clark DO [address] [place] [address] PCP - General Family Medicine 05/09/17 Network Systems Integrator Relationship Specialty Start Date End Date Fernie Clark DO [address] [place] [address] PCP - General Family Medicine 05/09/17 Network Systems Integrator Relationship Specialty Start Date End Date TracymonicaFernie noguera DO [address] [place] [address] PCP - General Family Medicine 05/09/17 Network Systems Integrator Relationship Specialty Start Date End Date Fernie Clark DO [address], [place] [address] PCP - General Family Medicine 05/09/17 Network Systems Integrator Relationship Specialty Start Date End Date Fernie Clark DO [address] [place] [address] PCP - General Family Medicine 05/09/17 Network Systems Integrator Relationship Specialty Start Date End Date Fernie Clark DO [address], [place] [address] PCP - General Family Medicine 05/09/17 Network Systems Integrator Relationship Specialty Start Date End Date TracymonicaFernie noguera DO [address], [place] [address] PCP - General Family Medicine 05/09/17 Network Systems Integrator Relationship Specialty Start Date End Date TracymonicaFernie noguera DO [address], [place] [address] PCP - General Family Medicine 05/09/17 Network Systems Integrator Relationship Specialty Start Date End Date Fernie Clark DO [address], [place] [address] PCP - General Family Medicine 05/09/17 Network Systems Integrator Relationship Specialty Start Date End Date Fernie Clark DO [address], [place] [address] PCP - General Family Medicine 05/09/17 Jeni Coronel [facility] Nurse [employer] 04/23/24 Network Systems Integrator Relationship Specialty Start Date End Date TracymonicaFernie noguera DO [address], [place] [address] PCP - General Family Medicine 05/09/17 Network Systems Integrator Relationship Specialty Start Date End Date TracymonicaFernie noguera DO [address], [place] [address] PCP - General Family Medicine 05/09/17 Network Systems Integrator Relationship Specialty Start Date End Date Fernie Clark DO [address], [place] [address] PCP - General Family Medicine 05/09/17 Jeni Coronel [facility] Nurse - [employer] 04/23/24 Network Systems Integrator Relationship Specialty Start Date End Date Fernie Clark DO [address], [place] [address] PCP - General Family Medicine 05/09/17 Jeni Coronel [facility] Nurse - [employer] 04/23/24 Network Systems Integrator Relationship Specialty Start Date End Date Fernie Clark [address], [place] [address] PCP - General Family Medicine 05/09/17 Jeni Coronel [facility] Nurse - [employer] 04/23/24 Network Systems Integrator Relationship Specialty Start Date End Date Fernie Clark [address], [place] [address] PCP - General Family Medicine 05/09/17 Network Systems Integrator Relationship Specialty Start Date End Date Fernie Clark [address], [place] [address] PCP - General Family Medicine 05/09/17 Clari Costa [facility] Nurse - [employer] 11/17/24 Network Systems Integrator Relationship Specialty Start Date End Date Fernie Clark [address], [place] [address] PCP - General Family Medicine 05/09/17 Clari Costa [facility] Nurse - [employer] 11/17/24 Network Systems Integrator Relationship Specialty Start Date End Date Fernie Clark [address], [place] [address] PCP - General Family Medicine 05/09/17 Jeni Coronel [facility] Nurse - [employer] 04/23/24 Network Systems Integrator Relationship Specialty Start Date End Date Fernie Clark [address], [place] [address] PCP - General Family Medicine 05/09/17 Jeni Coronel [facility] Nurse - [employer] 04/23/24 Network Systems Integrator Relationship Specialty Start Date End Date AmberFernieDO [address], [place] [address] PCP - General Family Medicine 05/09/17 Jeni Coronel [facility] Nurse - [employer] 04/23/24 Network Systems Integrator Relationship Specialty Start Date End Date Amber Fernie GDO [address], [place] [address] PCP - General Family Medicine 05/09/17 Jeni Coronel [facility] Nurse - [employer] 04/23/24 Network Systems Integrator Relationship Specialty Start Date End Date Fernie Clark JamarcusDO [address], [place] [address] PCP - General Family Medicine 05/09/17 Jeni Coronel [facility] Nurse - [employer] 04/23/24 Network Systems Integrator Relationship Specialty Start Date End Date Fernie Clark DO [address], [place] [address] PCP - General Family Medicine 05/09/17 Network Systems Integrator Relationship Specialty Start Date End Date Amber Fernie Ricketts DO [address], [place] [address] PCP - General Family Medicine 05/09/17 Jeni Coronel [facility] Nurse - [employer] 04/23/24 Network Systems Integrator Relationship Specialty Start Date End Date TracymonicaFernie noguera [address], [place] [address] PCP - General Family Medicine 05/09/17 Network Systems Integrator Relationship Specialty Start Date End Date AmberFernie [address], [place] [address] PCP - General Family Medicine 05/09/17 Flori Mon [facility] Nurse - [employer] 06/26/24 Network Systems Integrator Relationship Specialty Start Date End Date AmberFernieDO [address], [place] [address] PCP - General Family Medicine 05/09/17 Flori Mon [facility] Nurse - [employer] 06/26/24 Network Systems Integrator Relationship Specialty Start Date End Date Tracyangel luisFernie [address] [place] [address] [address] [place] [address] PCP - General Family Medicine 05/09/17 Flori Mon [facility] Nurse - [employer] 06/26/24 Network Systems Integrator Relationship Specialty Start Date End Date AmberFernieDO [address], [place] [address] PCP - General Family Medicine 05/09/17 Flori Mon [facility] Nurse - [employer] 06/26/24 Network Systems Integrator Relationship Specialty Start Date End Date Fernie Clark DO [address], [place] [address] PCP - General Family Medicine 05/09/17 Flori Mon [facility] Nurse - [employer] 06/26/24 Network Systems Integrator Relationship Specialty Start Date End Date Fernie Clark DO [address], [place] [address] PCP - General Family Medicine 05/09/17 Flori Mon [facility] Nurse - [employer] 06/26/24 Network Systems Integrator Relationship Specialty Start Date End Date Fernie Clark DO [address], [place] [address] PCP - General Family Medicine 05/09/17 Flori Mon [facility] Nurse - [employer] 06/26/24 Network Systems Integrator Relationship Specialty Start Date End Date Fernie Clark DO [address], [place] [address] PCP - General Family Medicine 05/09/17 Flori Mon [facility] Nurse - [employer] 06/26/24 Network Systems Integrator Relationship Specialty Start Date End Date Fernie Clark DO [address], [place] [address] PCP - General Family Medicine 05/09/17 Flori Mon [facility] Nurse - [employer] 06/26/24 Network Systems Integrator Relationship Specialty Start Date End Date Fernie Clark DO [address], [place] [address] PCP - General Family Medicine 05/09/17 Flori Mon [facility] Nurse - [facility] 06/26/24 Team Status: Active Member Role Status [...] BE BASED ON THE PRIMARY CLINICAL RECORDS. [facility]. provides no warranty or guarantee of the accuracy or completeness of information in this document.
[2025-01-07 23:56] VITALS: BP 169/79; PULSE 55; TEMP 36.5; O2SAT 93; BMI 42.9
[2025-01-08] VITALS (16 sets, daily range): BP systolic 155–199; BP diastolic 68–97; PULSE 45–88; TEMP 36.3; O2SAT 88–98
[2025-01-08 01:38] LABS: Influenza Virus A Antigen Negative; Influenza Virus B Antigen Negative; Internal Control Within Normal Limits; SARS-CoV-2 Ag NEGATIVE (NEGATIVE)
[2025-01-08] MEDS: THEOPHYLLINE ANHYDROUS 400 MG TAB.ER.24H PO (02:32)
[2025-01-08] MEDS: ACETAMINOPHEN 325 MG TABLET 650 MG PO (02:32)
[2025-01-08] MEDS: ALLOPURINOL 100 MG TABLET 200 MG PO ×2 (02:32→08:22)
[2025-01-08] MEDS: MONTELUKAST SODIUM 10 MG TABLET PO (02:32)
[2025-01-08 05:10] LABS: Bilirubin Urine NEGATIVE (NEGATIVE); Blood Urine TRACE-I (NEGATIVE); Clarity Urine CLEAR (CLEAR); Color Urine LT. YELLOW (YELLOW); Glucose Urine UA NEGATIVE (NEGATIVE); Ketones Urine NEGATIVE (NEGATIVE); Leukocyte Esterase Urine MODERATE (NEGATIVE); Nitrite Urine NEGATIVE (NEGATIVE); Protein Urine 100 mg/dL (NEG/TRACE); Urine Microscopic Indicated YES; Urobilinogen Urine 0.2 EU/dL (0.2-1.0)
[2025-01-08 05:24] LABS: WBC Urine 75-100 #/HPF (NONE SEEN)
[2025-01-08 05:25] LABS: Bacteria Urine LARGE #/HPF (NONE SEEN); Mucus Urine NONE SEEN (NONE SEEN); Squamous Epithelial Cell Urine FEW #/LPF (NONE/RARE)
[2025-01-08 05:27] LABS: Cast Seen? NONE SEEN #/LPF (NONE SEEN); Crystals Seen? None Seen #/HPF (None Seen); Urine Culture Indicated YES-FRMC
[2025-01-08] MEDS: BACLOFEN 10 MG TABLET PO (06:04)
[2025-01-08 06:32] LABS: Alanine Aminotransferase 18 U/L (14-59); Albumin Globulin Ratio 0.6; Albumin Level 2.4 g/dL (3.4-5.0); Alkaline Phosphatase 95 U/L (46-116); BUN Creatinine Ratio 29.3; Bilirubin Total 0.3 mg/dL (0.2-1.0); Calcium 9.6 mg/dL (8.5-10.1); Carbon Dioxide 28.4 mmol/L (21.0-32.0); Chloride 105 mmol/L (98-107); Estimated GFR (African America 44 (>=60 mL/min/1.73m^2); Estimated GFR (Non-African Ame 36 (>=60 mL/min/1.73m^2); Globulin 3.9 g/dL; Glucose 257 mg/dL (74-106); Magnesium 1.7 mg/dL (1.8-2.4); Sodium 140 mmol/L (136-145); Total Protein 6.3 g/dL (6.4-8.2)
[2025-01-08 06:34] LABS: Aspartate Amino Transferase 30 U/L (15-37); Potassium 5.4 mmol/L (3.5-5.1)
[2025-01-08 06:42] LABS: Troponin I High Sensitivity 25.4 pg/mL (4.0-51.3)
[2025-01-08 06:43] LABS: Basophils Percent Auto 0.2 % (0.2-2.0); Hematocrit 33.3 % (36.0-48.0); Hemoglobin 10.7 g/dL (12.0-16.0); Immature Granulocytes Abs Auto 0.14 10^3/uL (0.00-0.03); Immature Granulocytes Pct Auto 2.1 % (0.0-0.5); Lymphocytes Absolute Auto 0.8 10^3/uL (1.2-3.8); Lymphocytes Percent Auto 11.5 % (20.5-60.0); Mean Corpuscular HGB Conc 32.1 g/dL (29.9-35.2); Mean Corpuscular Hemoglobin 30.1 pg (26.7-34.0); Mean Corpuscular Volume 93.5 fL (81.0-99.0); Mean Platelet Volume 10.5 fL (9.5-13.5); Monocytes Absolute Auto 0.3 10^3/uL (0.3-0.8); Monocytes Percent Auto 4.7 % (1.7-12.0); Neutrophils Absolute Auto 5.4 10^3/uL (1.4-6.5); Neutrophils Percent Auto 81.5 % (43.0-75.0); Platelet Count 247 10^3/uL (150-450); Red Blood Count 3.56 10^6/uL (4.20-5.40); Red Cell Distribution Width 14.6 % (11.0-15.0); White Blood Count 6.6 10^3/uL (4.0-11.0)
[2025-01-08 07:32] LABS: Glucometer 243 mg/dL (74-106)
[2025-01-08] MEDS: INSULIN ASPART 300 UNIT/3 ML PEN SUBQ ×2 (08:11→11:38)
--- NOTE | 2025-01-08 08:14 | P.HP_ITS ---
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 Conley), HLD, HTN, COPD, GERD, Gout who presented to the ER last night for chest pain. She was just discharged from our facility on 01/06/25 and was found to have inflammatory/Gouty arthritis and has been treated with prednisone, patient had spine X-ray's that showed no acute fracture. Chest X-ray in the ER showed no acute pathology this admission. Her troponin's x 3, including this morning are negative. WBC's normal, Hb 10.7, Cr 1.4, K 5.4, Mag 1.7. EKG's show no acute ST depression or elevation. Patient does have elevated BP 180's/90's and she is receiving her morning medications of Coreg, Lisinopril, Aspirin, and she also takes Lipitor. HA1c, lipids, TSH are pending this morning. Patient has known Cervical OA with pronounced Kyphosis. I am suspicious that this pain is musculoskeletal in nature. Opioid HPI Opioid Management Most Recent Pain and Opioid Data: Last Pain Scale 4 01/08/25 11:27 01/08/25 Last Pain Intensity 4 11/27/24 11:35 11/27/24 Last Pain Assessment 01/08/25 11:27 Last MAR Pain Assessment 01/08/25 06:04 Last ORT Total Score 5 01/07/25 23:56 01/07/25 Last ORT Risk Category Moderate Risk 01/07/25 23:56 01/07/25 Review of Systems ROS Narrative ROS: a complete review of systems were reviewed with patient and are positive as below or listed in History of Chief Complaint. General: no fever, chills, night sweats Head: no headache, trauma, visual changes, nausea or vomiting Skin: no reported rashes, itching or sores Eyes: no blurriness of vision Ears: no reported hearing loss, vertigo, earache, or tinnitus Throat: no sore throat, hoarseness, swelling of neck, or tongue pain Heart:chest pain but positional Lungs: no shortness of breath or cough GI: no diarrhea or vomiting/nausea Urinary: no urinary urgency, frequency or pain Neuro: no numbness or tingling HEM: no bleeding issues or bruising ENDO: no thyroid problems Psych: no anxiety or depression [facility] Medical History Generalized weakness ?R53.1 - Weakness (ICD-10) Altered mental status ?R41.82 - Altered mental status, unspecified (ICD-10) Acute kidney failure ?N17.9 - Acute kidney failure, unspecified (ICD-10) HLD (hyperlipidemia) ?E78.5 - Hyperlipidemia, unspecified (ICD-10) CKD stage 3b, GFR 30-44 ml/min ?N18.32 - Chronic kidney disease, stage 3b (ICD-10) Constipation due to opioid therapy ?K59.03 - Drug induced constipation (ICD-10) ?T40.2X5A - Adverse effect of other opioids, initial encounter (ICD-10) Chronic use of opiate drug for therapeutic purpose ?Z79.891 - [facility] (current) use of opiate analgesic (ICD-10) Lumbar stenosis with neurogenic claudication ?M48.062 - Spinal stenosis, lumbar region with neurogenic claudication (ICD- 10) Diabetes ?E11.9 - Type 2 diabetes mellitus without complications (ICD-10) COPD (chronic obstructive pulmonary disease) ?J44.9 - Chronic obstructive pulmonary disease, unspecified (ICD-10) HTN (hypertension) ?I10 - Essential (primary) hypertension (ICD-10) Chronic prescription opiate use ?Z79.891 - rn long term care (current) use of opiate analgesic (ICD-10) Lumbar radiculopathy, chronic ?M54.16 - Radiculopathy, lumbar region (ICD-10) Complication of electrolyte disorder ?E87.8 - Other disorders of electrolyte and fluid balance, not elsewhere classified (ICD-10) Concussion ?S06.0XAA - Concussion with loss of consciousness status unknown, initial encounter (ICD-10) Bilateral knee pain ?M25.561 - Pain in right knee (ICD-10) ?M25.562 - Pain in left knee (ICD-10) Muscle spasm ?M62.838 - Other muscle spasm (ICD-10) Lumbar spondylosis ?M47.816 - Spondylosis without myelopathy or radiculopathy, lumbar region (ICD-10) Knee osteoarthritis ?M17.9 - Osteoarthritis of knee, unspecified (ICD-10) Chronic kidney disease ?N18.9 - Chronic kidney disease, unspecified (ICD-10) Acute neck pain ?M54.2 - Cervicalgia (ICD-10) Head injury due to trauma ?S09.90XA - Unspecified injury of head, initial encounter (ICD-10) Urinary tract infection ?N39.0 - Urinary tract infection, site not specified (ICD-10) GERD without esophagitis ?K21.9 - Gastro-esophageal reflux disease without esophagitis (ICD-10) Gout due to renal impairment ?M10.30 - Gout due to renal impairment, unspecified site (ICD-10) Osteoarthritis ?M19.90 - Unspecified osteoarthritis, unspecified site (ICD-10) Anemia ?D64.9 - Anemia, unspecified (ICD-10) Carpal tunnel syndrome ?G56.00 - Carpal tunnel syndrome, unspecified upper limb (ICD-10) Acid reflux ?K21.9 - Gastro-esophageal reflux disease without esophagitis (ICD-10) Cirrhosis of liver ?K74.60 - Unspecified cirrhosis of liver (ICD-10) Kidney stone ?N20.0 - Calculus of kidney (ICD-10) Kidney failure ?N19 - Unspecified kidney failure (ICD-10) Asthma ?J45.909 - Unspecified asthma, uncomplicated (ICD-10) High cholesterol ?E78.00 - Pure hypercholesterolemia, unspecified (ICD-10) Surgical History History of appendectomy ?Z90.49 - Acquired absence of other specified parts of digestive tract (ICD- 10) History of hysterectomy ?Z90.710 - Acquired absence of both cervix and uterus (ICD-10) History of neck surgery ?Z98.890 - Other specified postprocedural states (ICD-10) Hx of cholecystectomy ?Z90.49 - Acquired absence of other specified parts of digestive tract (ICD- 10) History of lumbar laminectomy ?Z98.890 - Other specified postprocedural states (ICD-10) History of cardiac cath ?Z98.890 - Other specified postprocedural states (ICD-10) Family History Father Family history of CHF (congestive heart failure) Family history of COPD (chronic obstructive pulmonary disease) Family history of cancer Family history of diabetes mellitus Family history of hypertension Mother Family history of diabetes mellitus Family history of hypertension Family history of myocardial infarction Sister Family history of myocardial infarction Social History Within the past year, how often did you have a drink containing alcohol: never Score interpretation: A score less than 3 is consistent with normal alcohol consumption. Smoking status: Never smoker Non-prescribed substance use: denies use Previous occupational history: retired Highest level of school completed/degree received: Associate degree: occupational, technical, vocational program Are you now , , , , never or living with a partner: Little interest or pleasure in doing things: not at all Feeling down, depressed, or hopeless: not at all Do you think of yourself as: straight/heterosexual Gender Identity: female Meds Home Medications and Allergies Home Medications ?Medication ?Instructions ?Recorded ?Confirmed ?Type aspirin 81 mg tablet,delayed 81 mg PO DAILY 04/26/23 01/08/25 History release atorvastatin 80 mg tablet 80 mg PO DAILY 04/26/23 01/08/25 History insulin lispro 100 unit/mL 6 unit subcut BIDWM 04/26/23 01/03/25 History subcutaneous pen theophylline 400 mg 400 mg PO .QHS 04/26/23 01/08/25 History tablet,extended release 24 hr fluticasone furoate 200 1 inh inhalation Q24H 11/24/24 01/08/25 History mcg-vilanterol 25 mcg/dose inhalation powder (Breo Ellipta) insulin glargine 100 unit/mL (3 46 unit subcut .qhs 11/24/24 01/08/25 History mL) subcutaneous pen (Lantus Solostar U-100 Insulin) montelukast 10 mg tablet 10 mg PO .QHS 11/24/24 01/08/25 History pregabalin 75 mg capsule (Lyrica) 75 mg PO DAILY 11/24/24 01/08/25 History pantoprazole 40 mg tablet,delayed 40 mg PO DAILY #30 tabs 12/09/24 01/08/25 Rx release (Protonix) acetaminophen 500 mg tablet 1,000 mg PO .q8hr PRN pain 01/02/25 01/08/25 History albuterol 90 mcg/actuation aerosol 90 mcg inhalation Q4H PRN sob 01/02/25 01/08/25 History inhaler baclofen 10 mg tablet 10 mg PO TID #0 tabs 01/02/25 01/08/25 Rx carvedilol 12.5 mg tablet 25 mg PO BID 01/02/25 01/08/25 History hydroxyzine HCl 25 mg tablet 25 mg PO QID PRN itching 01/02/25 01/08/25 History lisinopril 40 mg tablet 40 mg PO DAILY 01/02/25 01/08/25 History ondansetron 4 mg disintegrating 4 mg PO Q6H PRN nausea and vomiting 01/02/25 01/08/25 History tablet sennosides 8.6 mg tablet 8.6 mg PO BID 01/02/25 01/08/25 History (Black-Draught Lax-Senna) allopurinol 100 mg tablet 200 mg PO .QD 01/04/25 01/08/25 History cephalexin 250 mg capsule 250 mg PO Q12H 7 days #14 caps 01/06/25 Rx prednisone 20 mg tablet 20 mg PO BID 7 days #14 tabs 01/06/25 01/08/25 Rx food supplemt, lactose-reduced 1 ea PO TID 01/08/25 01/08/25 History (Ensure Active Protein-Muscle oral liquid) Allergies Allergy/AdvReac Type Severity Reaction Status Date / Time adhesive tape Allergy Unknown rash Verified 01/02/25 07:16 povidone-iodine (From Allergy Unknown Rash Verified 01/02/25 07:16 Betadine) red dye Allergy Unknown Rash Verified 01/02/25 07:16 Sulfa (Sulfonamide Allergy Unknown Rash Verified 01/02/25 07:16 Antibiotics) tetracycline Allergy Unknown Rash Verified 01/02/25 07:16 Exam Narrative Exam Narrative: General: Patient is alert, and oriented to person, place and time Skin: no visible rashes, or ulcers Head: atraumatic, acephalic Eyes: PERRLA, no nystagmus present, conjunctiva clear, no scleral icterus Ears: normal gross auditory acuity Heart: Normal rate and rhythm, no murmurs/rubs/gallops Lungs: no audible wheezes, crackles and normal breath sounds all lung valentin Abdomen: Normal audible bowel sounds, no distension, No palpable masses, no organomegaly, no rebound/guarding/ or rigidity Musculoskeletal: mild swelling bilateral lower extremities Neuro: CN II-X grossly intact Constitutional Vital Signs, click to edit/add: Last Vital Signs Temp 97.3 F L 01/08/25 04:00 Pulse 58 L 01/08/25 07:33 Resp 18 01/08/25 07:33 BP 199/82 H 01/08/25 07:33 Pulse Ox 98 01/08/25 07:33 O2 Del Method Nasal Cannula 01/08/25 07:33 O2 Flow Rate 2 01/08/25 04:55 Results Labs Labs: Short CBC 01/07/25 01/08/25 Range/Units 20:30 06:32 WBC 6.1 6.6 (4.0-11.0) 10^3/uL Hgb 10.2 L 10.7 L (12.0-16.0) g/dL Hct 31.9 L 33.3 L (36.0-48.0) % Plt Count 234 247 (150-450) 10^3/uL BMP 01/07/25 01/08/25 20:30 05:50 Sodium 141 140 Potassium 4.4 5.4 H Chloride 103 105 Carbon Dioxide 29.9 28.4 BUN 39.0 H 41.0 H Creatinine 1.57 H 1.40 H Glucose 350 H 257 H Calcium 9.0 9.6 Liver Function 01/07/25 01/08/25 Range/Units 20:30 05:50 Total Bilirubin 0.2 0.3 (0.2-1.0) mg/dL AST 20 30 (15-37) U/L ALT 24 18 (14-59) U/L Alkaline Phosphatase 99 95 (46-116) U/L Albumin 2.2 L 2.4 L (3.4-5.0) g/dL Urine 01/08/25 Range/Units 04:50 Urine Color Lt. yellow (YELLOW) Urine Clarity Clear (CLEAR) Urine pH 6.0 (5.0-9.0) Ur Specific [place] 1.020 (1.005-1.025) Urine Protein 100 A (NEG/TRACE) mg/dL Urine Glucose (UA) Negative (NEGATIVE) mg/dL Assessment and Plan Assessment and Plan (1) Atypical chest pain: Assessment and Plan: Troponin's x 3 have been negative. EKG's showed no acute changes. Slight elevation in her PRoBNP but she has baseline Congestive heart failure and does not appear in hypervolemic. Chest X-ray did not show any pulmonary edema and she has not had any further oxygen requirement from baseline. Lipid panel is in good range. TSH normal and ha1c 6.4. I have discussed with her who is at bedside that most likely her chest pain is most likely related to her neck/back and muscle pain. She will have close outpatient follow up with her Electric Deicer Inspector at discharge. He is amendable to this plan. She will be discharged back to the [facility] today to take her remaining prednisone. (2) Inflammatory arthritis: Assessment and Plan: complete prednisone burst. (3) HLD (hyperlipidemia): Assessment and Plan: continue atorvastatin Qualifiers: Hyperlipidemia type: unspecified Qualified Code(s): E78.5 - Hyperlipidemia, unspecified (4) CKD stage 3b, GFR 30-44 ml/min: Assessment and Plan: cr 1.40 (5) Lumbar stenosis with neurogenic claudication: (6) Diabetes: Assessment and Plan: stable, continue home meds. ha1c 6.4 Qualifiers: Chronic kidney disease stage: stage 3 (moderate) Chronic kidney disease stage 3 subtype: stage 3b (GFR 30-44) Diabetes mellitus complication detail: with chronic kidney disease Diabetes mellitus complication status: with kidney complications Diabetes mellitus long term care phlebotomist insulin use: with group home use Diabetes mellitus type: type 2 Qualified Code(s): E11.22 - Type 2 diabetes mellitus with diabetic chronic kidney disease; N18.32 - Chronic kidney disease, stage 3b; Z79.4 - rn long term care (current) use of insulin (7) COPD (chronic obstructive pulmonary disease): Assessment and Plan: continue oxygen therapy and inhalers Qualifiers: COPD type: unspecified COPD Qualified Code(s): J44.9 - Chronic obstructive pulmonary disease, unspecified (8) HTN (hypertension): Assessment and Plan: resume home medications Qualifiers: Hypertension type: secondary to endocrine disorders Qualified Code(s): I15.2 - Hypertension secondary to endocrine disorders (9) GERD without esophagitis: Assessment and Plan: resume home medications (10) Gout due to renal impairment: Assessment and Plan: resume home medications Qualifiers: Chronicity: chronic Gout site: shoulder Laterality: unspecified laterality Presence of tophus: without tophus Qualified Code(s): M1A.3190 - Chronic gout due to renal impairment, unspecified shoulder, without tophus (tophi) Plan Patient is a DNRCCA continue SCD's for prophylaxis and Aspirin Patient is in observation status and is not expected to cross 2 midnights Urinary Catheter Management Urinary Catheter Management Pure Wick: Cath placed during this visit: no
[2025-01-08] MEDS: PREDNISONE 20 MG TABLET PO (08:19)
[2025-01-08] MEDS: PREGABALIN 75 MG CAPSULE PO (08:19)
[2025-01-08] MEDS: ASPIRIN 81 MG TABLET.DR PO (08:20)
[2025-01-08] MEDS: CARVEDILOL 12.5 MG TABLET 25 MG PO (08:20)
[2025-01-08] MEDS: LISINOPRIL 20 MG TABLET 40 MG PO (08:20)
[2025-01-08] MEDS: PANTOPRAZOLE SODIUM 40 MG TABLET.DR PO (08:20)
[2025-01-08 08:51] LABS: Chol HDL Ratio 3.1; Cholesterol 175 mg/dL (<=200); HDL Cholesterol 57 mg/dL (40-60); Thyroid Stimulating Hormone 1.978 uIU/mL (0.358-3.740); Triglycerides 162 mg/dL (<=150); VLDL CHOLESTEROL 32.4 mg/dL
[2025-01-08 09:10] LABS: Estimated Average Glucose 137 mg/dL; Glycohemoglobin A1C 6.4 % (4.5-6.2)
--- NOTE | 2025-01-08 09:25 | SWNOTE1 ---
Pt is from [facility].
--- NOTE | 2025-01-08 10:18 | SWNOTE1 ---
AYAH faxed updates to [facility]. Updates included face sheet, ED note, labs, vitals, diagnostic imaging, and nursing notes.
--- NOTE | 2025-01-08 10:40 | SWNOTE1 ---
SW received message from case management and pt will be discharged back to [facility] today. AYAH notified Gillian at [facility].
--- NOTE | 2025-01-08 10:41 | SWNOTE1 ---
Medicare Outpatient Observation Notice reviewed and discussed with patient and pt's . They verbalized understanding and pt's signed the form. Original given to patient and pt's and copy placed in patient?s chart.
--- NOTE | 2025-01-08 10:41 | SWNOTE1 ---
SW assisted with ordering pt something to eat. SW asked about mode of transportation back to [place]. Pt's did voiced they would like to use ambulance. He did state she will have to have a follow up with cardiology here at [facility]. SW advised that [place] will assist with that transportation and unsure if [place] bus has a safety belt for wheelchair. Pt's voiced understanding.
[2025-01-08] MEDS: BUDESONIDE 0.5 MG/2 ML AMPULE NEB IH (10:51)
[2025-01-08] MEDS: ALBUTEROL SULFATE 2.5 MG/3 ML VIAL NEB IH (10:51)
[2025-01-08 11:26] LABS: Glucometer 255 mg/dL (74-106)
[2025-01-08] MEDS: HYDRALAZINE HCL 20 MG/ML VIAL 10 MG IVP (11:55)
--- NOTE | 2025-01-08 11:57 | CM.NOTE ---
Rounds made with Dr. Harrington. Plan of care reviewed with Mr. Wolff. Plan to return to [facility] today. Verbalizes agreement.
--- NOTE | 2025-01-08 12:07 | SWNOTE1 ---
SW called and set up [facility] for 2:00 for pt to return to [facility]. SW notified pt and pt's , nurse, and [facility] of time.
--- NOTE | 2025-01-08 12:44 | P.DS_ITS ---
DS: Providers Provider Date of admission: 01/07/25 23:44 Primary care physician: SHANDA CLARK Attending physician on admission: Marion Harrington Discharging clinician: Marion Harrington DS: Diagnosis Discharge Diagnosis (1) Atypical chest pain: (2) Inflammatory arthritis: (3) HLD (hyperlipidemia): Qualifiers: Hyperlipidemia type: unspecified Qualified Code(s): E78.5 - Hyperlipidemia, unspecified (4) CKD stage 3b, GFR 30-44 ml/min: (5) Lumbar stenosis with neurogenic claudication: (6) Diabetes: Qualifiers: Diabetes mellitus type: type 2 Diabetes mellitus termite inspector insulin use: with correction use Diabetes mellitus complication status: with kidney complications Diabetes mellitus complication detail: with chronic kidney disease Chronic kidney disease stage: stage 3 (moderate) Chronic kidney disease stage 3 subtype: stage 3b (GFR 30-44) Qualified Code(s): E11.22 - Type 2 diabetes mellitus with diabetic chronic kidney disease; N18.32 - Chronic kidney disease, stage 3b; Z79.4 - snf (current) use of insulin (7) COPD (chronic obstructive pulmonary disease): Qualifiers: COPD type: unspecified COPD Qualified Code(s): J44.9 - Chronic obstructive pulmonary disease, unspecified (8) 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 Qualified Code(s): I15.2 - Hypertension secondary to endocrine disorders (9) GERD without esophagitis: (10) Gout due to renal impairment: Qualifiers: Gout site: shoulder Chronicity: chronic Laterality: unspecified laterality Presence of tophus: without tophus Qualified Code(s): M1A.3190 - Chronic gout due to renal impairment, unspecified shoulder, without tophus (tophi) DS: Summary Hospital Course Hospital Course: Please see H&P dated 01/08/25. Discharged back to the [facility] today with close outpatient Cardiology follow up. complete keflex and prednisone from previous admission. Status at Discharge Functional status at discharge: uses cane/walker Overall status at discharge: patient is progressing back to baseline Time Spent with Patient Time attestation: Total time spent providing and/or coordinating discharge services: Time spent: greater than 30 minutes Exam Narrative Exam Narrative: no changes from H&P dated 01/08/25 Constitutional Vital Signs, click to edit/add: Last Vital Signs Temp 97.3 F L 01/08/25 04:00 Pulse 57 L 01/08/25 12:18 Resp 18 01/08/25 11:27 BP 168/72 H 01/08/25 12:18 Pulse Ox 88 L 01/08/25 12:18 O2 Del Method Room Air 01/08/25 12:18 O2 Flow Rate 2 01/08/25 10:53 DS: Data Data Completed and Pending Labs on day of discharge: Labs from last 24 hours 01/08/25 01/08/25 01/08/25 11:23 07:29 06:32 WBC 6.6 RBC 3.56 L Hgb 10.7 L Hct 33.3 L MCV 93.5 MCH 30.1 MCHC 32.1 RDW 14.6 Plt Count 247 MPV 10.5 Neut % (Auto) 81.5 H Lymph % (Auto) 11.5 L [place] % (Auto) 4.7 Eos % (Auto) 0.0 L Baso % (Auto) 0.2 Neut # (Auto) 5.4 Lymph # (Auto) 0.8 L [place] # (Auto) 0.3 Eos # (Auto) 0.0 Baso # (Auto) 0.0 Abs Immat Gran (auto) 0.14 H Imm/Tot Granulo (auto) 2.1 H PT INR APTT Sodium Potassium Chloride Carbon Dioxide Anion Gap BUN Creatinine Est GFR ( Amer) Est GFR (Non-Af Amer) BUN/Creatinine Ratio Glucose Estimat Average Glucose 137 Hemoglobin A1c 6.4 H Calcium Magnesium Total Bilirubin AST ALT Alkaline Phosphatase Troponin I High Sens NT-Pro-B Natriuret Pep Total Protein Albumin Globulin Albumin/Globulin Ratio Triglycerides Cholesterol LDL Cholesterol, Calc VLDL Cholesterol HDL Cholesterol Cholesterol/HDL Ratio Lipase TSH Urine Color Urine Clarity Urine pH Ur Specific Matthews Urine Protein Urine Glucose (UA) Urine Ketones Urine Occult Blood Urine Nitrite Urine Bilirubin Urine Urobilinogen Ur Leukocyte Esterase Urine RBC Urine WBC Ur Squamous Epith Cells Urine Crystals Urine Bacteria Urine Casts Urine Mucus Urine Yeast Ur Culture Indicated? Influenza Type A Ag Influenza Type B Ag SARS-CoV-2 Ag (CV2AG) POC Glucose 255 H 243 H 01/08/25 01/08/25 01/08/25 05:50 04:50 01:00 WBC RBC Hgb Hct MCV MCH MCHC RDW Plt Count MPV Neut % (Auto) Lymph % (Auto) [place] % (Auto) Eos % (Auto) Baso % (Auto) Neut # (Auto) Lymph # (Auto) [place] # (Auto) Eos # (Auto) Baso # (Auto) Abs Immat Gran (auto) Imm/Tot Granulo (auto) PT INR APTT Sodium 140 Potassium 5.4 H Chloride 105 Carbon Dioxide 28.4 Anion Gap 12.0 BUN 41.0 H Creatinine 1.40 H Est GFR ( Amer) 44 L Est GFR (Non-Af Amer) 36 L BUN/Creatinine Ratio 29.3 Glucose 257 H Estimat Average Glucose Hemoglobin A1c Calcium 9.6 Magnesium 1.7 L Total Bilirubin 0.3 AST 30 ALT 18 Alkaline Phosphatase 95 Troponin I High Sens 25.4 NT-Pro-B Natriuret Pep 6940.0 H* Total Protein 6.3 L Albumin 2.4 L Globulin 3.9 Albumin/Globulin Ratio 0.6 Triglycerides 162 H Cholesterol 175 LDL Cholesterol, Calc 86.0 VLDL Cholesterol 32.4 HDL Cholesterol 57 Cholesterol/HDL Ratio 3.1 Lipase TSH 1.978 Urine Color Lt. yellow Urine Clarity Clear Urine pH 6.0 Ur Specific Matthews 1.020 Urine Protein 100 A Urine Glucose (UA) Negative Urine Ketones Negative Urine Occult Blood Trace-i Urine Nitrite Negative Urine Bilirubin Negative Urine Urobilinogen 0.2 Ur Leukocyte Esterase Moderate A Urine RBC 2-5 A Urine WBC 75-100 A Ur Squamous Epith Cells Few A Urine Crystals None seen Urine Bacteria Large A Urine Casts None seen Urine Mucus None seen Urine Yeast Seen A Ur Culture Indicated? [place] [place] Type A Ag Negative Influenza Type B Ag Negative SARS-CoV-2 Ag (CV2AG) Negative POC Glucose 01/07/25 01/07/25 21:25 20:30 WBC 6.1 RBC 3.43 L Hgb 10.2 L Hct 31.9 L MCV 93.0 MCH 29.7 MCHC 32.0 RDW 14.6 Plt Count 234 MPV 10.5 Neut % (Auto) 78.5 H Lymph % (Auto) 11.7 L [place] % (Auto) 8.2 Eos % (Auto) 0.0 L Baso % (Auto) 0.5 Neut # (Auto) 4.8 Lymph # (Auto) 0.7 L [place] # (Auto) 0.5 Eos # (Auto) 0.0 Baso # (Auto) 0.0 Abs Immat Gran (auto) 0.07 H Imm/Tot Granulo (auto) 1.1 H PT 10.9 INR 1.03 APTT 24.1 Sodium 141 Potassium 4.4 Chloride 103 Carbon Dioxide 29.9 Anion Gap 12.5 BUN 39.0 H Creatinine 1.57 H Est GFR ( Amer) 38 L Est GFR (Non-Af Amer) 32 L BUN/Creatinine Ratio 24.8 Glucose 350 H Estimat Average Glucose Hemoglobin A1c Calcium 9.0 Magnesium Total Bilirubin 0.2 AST 20 ALT 24 Alkaline Phosphatase 99 Troponin I High Sens 27.8 27.1 NT-Pro-B Natriuret Pep Total Protein 5.9 L Albumin 2.2 L Globulin 3.7 Albumin/Globulin Ratio 0.6 Triglycerides Cholesterol LDL Cholesterol, Calc VLDL Cholesterol HDL Cholesterol Cholesterol/HDL Ratio Lipase 38.0 TSH Urine Color Urine Clarity Urine pH Ur Specific [place] Urine Protein Urine Glucose (UA) Urine Ketones Urine Occult Blood Urine Nitrite Urine Bilirubin Urine Urobilinogen Ur Leukocyte Esterase Urine RBC Urine WBC Ur Squamous Epith Cells Urine Crystals Urine Bacteria Urine Casts Urine Mucus Urine Yeast Ur Culture Indicated? Influenza Type A Ag Influenza Type B Ag SARS-CoV-2 Ag (CV2AG) POC Glucose Preliminary micro results at discharge 01/08/25 04:50 Urine Culture - Preliminary Urine,Clean Catch Pending - Specimen sent to [facility] Discharge Plan Discharge Disposition: Xfer SNF Condition: Good Discharge Medications: Continued aspirin 81 mg tablet,delayed release (DR/EC) 81 mg PO DAILY atorvastatin 80 mg tablet 80 mg PO DAILY insulin lispro 100 unit/mL insulin pen 6 unit subcut BIDWM theophylline 400 mg tablet extended release 24 hr 400 mg PO .QHS montelukast 10 mg tablet 10 mg PO .QHS fluticasone furoate-vilanterol [Breo Ellipta] 200-25 mcg/dose blister with device 1 inh INHALATION Q24H pregabalin [Lyrica] 75 mg capsule 75 mg PO DAILY insulin glargine [Lantus Solostar U-100 Insulin] 100 unit/mL (3 mL) insulin pen 46 unit SUBCUT .qhs Ensure Active Protein-Muscle Liquid 1 ea PO TID pantoprazole [Protonix] 40 mg tablet,delayed release (DR/EC) 40 mg PO DAILY Qty: 30 11RF lisinopril 40 mg tablet 40 mg PO DAILY ondansetron 4 mg tablet,disintegrating 4 mg PO Q6H PRN (Reason: nausea and vomiting) hydroxyzine HCl 25 mg tablet 25 mg PO QID PRN (Reason: itching) sennosides [Black-Draught Lax-Senna] 8.6 mg tablet 8.6 mg PO BID carvedilol 12.5 mg Tablet 25 mg PO BID acetaminophen 500 mg tablet 1,000 mg PO .q8hr PRN (Reason: pain) albuterol 90 mcg/actuation aerosol 90 mcg inhalation Q4H PRN (Reason: sob) baclofen 10 mg tablet 10 mg PO TID Qty: 0 0RF allopurinol 100 mg tablet 200 mg PO .QD prednisone 20 mg tablet 20 mg PO BID 7 Days Qty: 14 0RF cephalexin 250 mg capsule 250 mg PO Q12H 7 Days Qty: 14 0RF Print Language: Algerian Activity Restrictions/Additional Instructions: Please complete prior Prednisone burst and Keflex. from 01/06/25 discharge. Twist Packer/Gamb Cutter Instructions: Discharge to [facility]. Forms: Portal Instructions Follow Up Appointments: January 29 @ 10:45am with [place] [facility] at [facility] [phone] Discharge location: [facility]
--- NOTE | 2025-01-08 12:50 | SWNOTE1 ---
SW faxed over H&P and dc med rec to [facility]. SW took packet to the floor. Pt is returning skilled.
== END 2025-01-08 14:14 ==
LOC: ER 21:56 → MS 23:49
PROVIDERS: Registered Nurse; Admitting Provider Family Medicine; Emergency Provider Student in an Organized Health Care Education/Training Program; PCP Family Medicine; Visit Provider Family Medicine
DX: R07.89 Other chest pain (principal); M47.812 Spondylosis without myelopathy or radiculopathy, cervical region; M47.816 Spondylosis without myelopathy or radiculopathy, lumbar region; E11.22 Type 2 diabetes mellitus with diabetic chronic kidney disease; N18.32 Chronic kidney disease, stage 3b; Z79.4 Long term (current) use of insulin; E78.5 Hyperlipidemia, unspecified; J44.9 Chronic obstructive pulmonary disease, unspecified; K21.9 Gastro-esophageal reflux disease without esophagitis; E66.01 Morbid (severe) obesity due to excess calories; Z90.710 Acquired absence of both cervix and uterus; Z90.49 Acquired absence of other specified parts of digestive tract; Z66 Do not resuscitate; Z79.899 Other long term (current) drug therapy; M06.4 Inflammatory polyarthropathy; M48.062 Spinal stenosis, lumbar region with neurogenic claudication; I15.2 Hypertension secondary to endocrine disorders; M1A.31 Chronic gout due to renal impairment, shoulder; Z68.41 Body mass index [BMI] 40.0-44.9, adult
CPT/HCPCS: 36415; 71045; 80053; 80061; 81001; 82948; 83036; 83690; 83735; 83880; 84443; 84484; 85025; 85610; 85730; 87086; 87804; 87811; 93005; 94640; 94761; 96374; 96375; 99285; G0378; J0360; J2270; J2405; J7512

== ENCOUNTER 2025-01-14 05:05 | Emergency (ER) | payer MEDICARE, SELFPAY ==
[2025-01-14] VITALS (14 sets, daily range): BP systolic 162–205; BP diastolic 100–149; PULSE 73–89; TEMP 36.8; O2SAT 93–98; BMI 36.6
--- OUTSIDE RECORDS SUMMARY | 2025-01-14 05:17 | XMS_ITS | CCD ---
Author Organization [facility] Care Team Providers Care Hair Cutter Name Role Phone ELTAHAWY, EHAB A Attending [...] FERNIE Ricketts Primary Care Unavailable TAMMY, GAI Admitting Unavailable TAMMY, GIA Attending Unavailable TAMMY, [...] ., DR LUISA Page Admitting Unavailable ADARSHHAWY, AB Attending Unavailable DARELL SYLVESTER Attending Unavailable FurlongDO Enciso Primary Care Provider MD Gia Conley Attending Provider [phone] FURLONG, FERNIE Ricketts Referring Unavailable FURLONG, FERNIE Ricketts Primary Care Unavailable FURLONG, FERNIE Ricketts Referring Unavailable FURLONG, FERNIE Ricketts Primary Care Unavailable FURLONG, FERNIE Ricketts Referring Unavailable FURLONG, FERNIE Ricketts Primary Care Unavailable Furlong DOFernie Primary Care Provider [phone] Kirsten RAND, Christian Rodríguez Attending Unavailable Kirsten RAND, Christian Rodríguez Attending Unavailable Kirsten RAND, Andrius Rodríguez Attending Unavailable Kirsten RAND, Andgolden Rodríguez [...] FERNIE G Primary Care Unavailable FURLONG, FERNIE Jamarcus Referring [...] Unavailable FURLONG, FERNIE G Primary Care Unavailable ATMMY, GIA Referring Unavailable FURLONG, FERNIE G Primary Care Unavailable FURLONG, FERNIE G Referring Unavailable FURLONG, FERNIE G Primary Care Unavailable TAMMY, GIA Referring Unavailable FURLONG, FERNIE G Primary Care Unavailable FURLONG, FERNIE G Referring Unavailable FURLONG, FERNIE G Primary Care Unavailable León Nina DO Attending Provider Furlong, Fernie Primary Care Unavailable León Nina Attending Unavailable León Nina Admitting Unavailable Furlong, Fernie Primary Care Unavailable León Nina Attending Unavailable León Nina Admitting Unavailable Gaetano Viera Attending Unavailable Gaetano Viera Admitting Unavailable Furlong, Fernie Primary Care Unavailable FURLONG, FERNIE G Attending [...] Adhesive Tape Substance Allergy 04-24-[address] [facility] Rep[facility] Povidone-Iodine (1 source) Povidone-Iodine Drug Allergy 04-24-[address] [facility] Sulfonamides (antibiotic) (1 source) Sulfonamides (Antibiotic) Drug Allergy 04-24-[address] [facility] Tetracyclines (antibiotic) (1 source) Tetracyclines Drug Allergy 04-24-[address] [facility] (20 sources) Povidone-Iodine; Translations: [POVIDONE-IODINE] Drug Allergy 11-25-19 15 [facility] Repository (10 sources) Sulfonamides (Antibiotic) Propensity to adverse reactions rash [employer] Other (15 sources) Tetracycline Drug Allergy 11-16-19 24 [facility] (14 sources) Adhesive 1 x6yd Drug allergy 11-08-20 23 [facility] (14 sources) Amlodipine & Diet Manage Prod Drug allergy 11-08-20 23 [facility] (2 sources) Povidone-Iodine; Translations: [Betadine] Drug Allergy 04-23-[address] [facility] Repository (20 sources) Contrast media; Translations: [RED DYE] Drug allergy (disorder) 05-04-20 17 Rash [facility] Repository (6 sources) Desonide Drug Allergy 04-23-20 13 Rash [facility] Repository (1 source) Sulfonamides (Antibiotic) Drug allergy (disorder) 04-23-20 13 [facility] Rep[facility] (1 source) Tetracycline Drug Allergy 04-23-20 13 [facility] (20 sources) Adhesive agent; Translations: [ADHESIVE] Propensity to adverse reactions to drug (disorder) 11-25-19 15 Itching, Other (See Comments) [facility] (20 sources) Sulfonamides (Antibiotic); Translations: [SULFA (SULFONAMIDE ANTIBIOTICS)] Propensity to adverse reactions to drug (disorder) 11-25-19 15 [facility] Repository (20 sources) Tetracyclines; Translations: [TETRACYCLINES] Propensity to adverse reactions to drug (disorder) 11-25-[address] [facility] Repository (20 sources) dilTIAZem; Translations: [DILTIAZEM] Drug Allergy 09-01-20 [facility] Repository (20 sources) Linagliptin; Translations: [LINAGLIPTIN] Drug Allergy 09-01-20 [facility] Repository (20 sources) ADHESIVE TAPE-SILICONES; Translations: [...] as needed Orally TWICE A DAY Active [id number] 200 actuat albuterol 0.09 mg/actuat metered dose [...] the morning. Active take 2 tablets by [facility] every twenty-four hours Allopurinol 100 MG 2 tablet Orally Once a day for 90 days Active ASA 81 mg (10 sources) take 1 tablet by mouth once daily ASA 81 mg 1 Tablet Oral daily Active atorvastatin 80 mg oral tablet (20 sources) HMG-CoA Reductase Inhibitor Start: 3 End: 4 take 1 tablet by mouth once daily Atorvastatin 80 mg tablet Active 80 MG PO Daily April 30, 2024 11:00pm baclofen 10 mg oral tablet (20 sources) gamma-Aminobutyric Acid-ergic Agonist Start: 4 baclofen (LIORESAL) 10 mg tablet TAKE 1 TABLET NIGHTLY 90 tablet 3 10/14/2024 Active Start: 11-26-2023 End: 05-27-2024 take 1 tablet by mouth once daily Baclofen 10 mg table t Active 10 MG PO Daily April 30, 2024 11:00pm take 1 tablet by [facility] three times daily baclofen (LIORESAL) 10 mg tablet Take 1 tablet (10 mg total) by mouth 3 (three) times a day. 0 Active biotin 10 mg oral tablet (20 sources) take 1 tablet by [place] once daily biotin 10 mg tablet Take 10 mg by mouth once daily. Active take 1 capsule by [facility] every twenty-four hours Biotin Maximum Strength 5000 MCG 1 capsule Orally Once a day Active take 1 capsule by [facility] every twenty-four hours Biotin Maximum Strength 5000 MCG 1 capsule Orally Once a day Active blood-glucose meter (TRUE METRIX GLUCOSE METER) [facility] (15 sources) Start: 11-18-2024 blood-glucose meter (TRUE METRIX GLUCOSE METER) [facility] 1 Unit by miscellaneous route [...] Micki, beta-Adrenergic Micki Start: 04-16-2023 End: 04-09-2024 take 1 tablet by mouth twice daily Carvedilol 6.25 mg tablet Active 6.25 MG PO Twice daily April 30, 2024 11:00pm cephalexin 500 mg oral capsule (1 source) [...] April 30, 2024 11:00pm Fish,Bora,Flax Oils-Om3,6,9n o1 ([place] 3-6-9) 1,200 mg capsule (4 sources) Start: 05-01-2024 Fish,Bora,Flax Oils-Om3,6,9no1 ([place] 3-6-9) 1,200 mg capsule Active CAP PO April 30, 2024 11:00pm Start: 05-01-2024 Fish,Bora,Flax Oils-Om3,6,9no1 ([place] 3-6-9) 1,200 mg capsule Active CAP PO [...] disease, with long-term current use of insulin ([facility]) Inject 46 Units [...] Lispro (Humalog U-100 Insulin) 100 unit/mL solution (4 sources) Start: 05-01-2024 inject 6 [IU] by [...] Leukotriene Receptor Antagonist Start: 04-04-2023 End: 03-31-2024 take 1 tablet by mouth once daily at bedtime Montelukast 10 mg tablet Active 10 MG PO Daily at bedtime April 30, 2024 11:00pm Multi For Her 50+ - (10 sources) Multi For Her 50 + - Orally Active uvzztyfr-spnb-CA-c alcium &mins (THERAGRAN-M) 9 mg iron-400 mcg tablet (20 sources) tscpjqtu-cisi-WY -c alcium &mins (THERAGRAN-M) 9 mg iron-400 mcg tablet Take 1 tablet by mouth in the morning. Active ojisseob-jpdw-LW -calcium &mins (THERAGRAN-M) 9 mg iron-400 mcg tablet Take 1 tablet by mouth in the morning. 0 Active Multivitamin (Daily Multi-Vitamin) tablet (4 sources) Start: 05-01-2024 take 1 tablet by [...] 5 days. 20 tablet 12/10/2024 12/15/2024 Active [place] 3-6-9 Complex - (10 sources) [place] 3-6-9 Comp fawad - Orally Active omega-3 [...] (Therapy completed) take [address] [facility] every twenty-four hours Omeprazole 20 MG [...] morning. 05/27/2024 Discontinued (Therapy completed) estrogens, conjugated (long term) 0.625 mg/ml vaginal cream (7 sources) Estrogen [...] Problem Date Documented Date Episodic/Chronic Anxiety disorders (8 sources) Anxiety; Translations: [Anxiety disorder, unspecified] Onset: [...] disease (20 sources) Atherosclerotic heart disease of [place] coronary artery without angina pectoris; Translations: [Coronary [...] 1 Resolved: 2 Chronic Nausea and vomiting (8 sources) Nausea; Translations: [Nausea] Onset: 5 12-27-2024 [...] Chronic Other nervous system disorders (2 sources) Metabolic encephalopathy; Translations: [Metabolic encephalopathy] Onset: 5 01-11-2025 Chronic Other nutritional; endocrine; and metabolic disorders [...] incont supplies Onset: 4 Urinary tract infections (9 sources) Acute cystitis; Translations: [Acute cystitis with [...] 09-01-2022 09-01-2022 Episodic Other aftercare (3 sources) 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 Normal [facility] Comment on above: Performed By: #### C UU #### [address] Urine Cultureon 01-03-2025 Bacteria identified Cx Nom (U) <10,000 colonies/ml mixed bacterial skin contaminants including mixed gram negative bacilli - 2 Days PERFORMED BY: [place] [address] PATHOLOGIST OVERHAULER MARIO PUTNAM M.D. Normal [facility] Comment on above: Performed By: #### C UU #### [facility] [address] [place] [address] Urine cultureOrdered By: Josesito Nina on 01-03-2025 Bacteria identified Cx Nom (U) Urine culture [facility] Urine Cultureon 11-20-2024 Bacteria identified Cx Nom (U) ORGANISM: Escherichia coli (O:ESCCOL) [place] Count >100,000 Aerobic URBAN Charge (NMIC56) -- [...] RESISTANT TO ALL B-LACTAM DRUGS. PERFORMED BY: [place] [address] PATHOLOGIST OVERHAULER MARIO PUTNAM M.D. Normal [facility] Comment on above: Performed By: #### C UU #### [facility] [address] Urine cultureOrdered By: Sanket Viera on 11-20-2024 Bacteria identified Cx Nom (U) Escherichia coli Abnormal [facility] MAGNESIUMon 11-17-2024 Magnesium [Mass/Vol] 1.8 mg/dL Normal 1.8-2.6 [facility] Comment on above: Performed By: #### 1 9123-9 ####[facility] ([id number])[address] [place] [address] MAGNESIUMon 11-10-2024 Magnesium [Mass/Vol] 1.8 mg/dL Normal 1.8-2.6 [facility] Comment on above: Performed By: #### 1 9123-9 ####[facility] ([id number])[address] [place] [address] MAGNESIUMon 11-03-2024 Magnesium [Mass/Vol] 1.7 mg/dL Low 1.8-2.6 [facility] Comment on above: Performed By: #### 1 9123-9 ####[facility] ([id number])[address] [place] [address] MAGNESIUMon 10-27-2024 Magnesium [Mass/Vol] 1.8 mg/dL Normal 1.8-2.6 [facility] Comment on above: Performed By: #### 1 9123-9 ####[facility] ([id number])[address] [place] [address] MAGNESIUMon 10-20-2024 Magnesium [Mass/Vol] 1.9 mg/dL Normal 1.8-2.6 [facility] Comment on above: Performed By: #### 1 9123-9 ####[facility] ([id number])[address] [place] [address] MAGNESIUMon 10-13-2024 Magnesium [Mass/Vol] 1.8 mg/dL Normal 1.8-2.6 [facility] Comment on above: Performed By: #### 1 9123-9 ####[facility] ([id number])[address] [place] [address] MAGNESIUMon 10-06-2024 Magnesium [Mass/Vol] 1.7 mg/dL Low 1.8-2.6 [facility] Comment on above: Performed By: #### 1 9123-9 ####[facility] ([id number])[address] [place] [address] MAGNESIUMon 09-29-2024 Magnesium [Mass/Vol] 1.7 mg/dL Low 1.8-2.6 [facility] Comment on above: Performed By: #### 1 9123-9 ####[facility] ([id number])[address] [place] [address] Glucose Glucometer (BldC) [M ass/Vol]on 09-26-2024 Glucose [Mass/Vol] 154 mg/dL High 65-99 [facility] Surgical Pathologyon 024 Surgical Pathology Normal [facility] Comment on above: Result Comment: [facility] [address] [place] [address] Surgical Pathology ConsultationPatient Name:ADORE WOLFF:1940 (Age: 83)Gender:FTaken:4Reported:10/01/2024hysician(s):Daniel Guerrero MD ([phone])Copy To: Rec. #:[id number]: #[id number] Pathologic Diagnosis1. Duodenum, second portion, biopsy: Duodenal mucosa with no significant diagnostic abnormality. No evidence of celiac disease.2. Duodenum, bulb, biopsy: Ectopic gastric mucosa.3. Stomach, polypectomy: Fundic gland polyp.4. Esophagus, distal, biopsy: Junctional mucosa with no significant diagnostic abnormality. No evidence of intestinal metaplasia. Report Electronically Signed Outrg/4Rpaula Coot MDInterpretation performed at [facility], [address] [place] [address], License number: [id number].Clinical History Ross's esophagus.Gross Description1. Received in formalin labeled KUSS, second portion of duodenum are two light abbott soft tissue bits, 0.2 cm each. The specimen is filtered and entirely submitted in a single cassette. (1, ns, [id number],m3) DM.2. .Received in formalin labeled KUSS, duodenal bulb biopsies are three light abbott soft tissue bits, 0.2 cm each. The specimen is filtered and entirely submitted in a single cassette. (1, ns, [id number],m3) DM.3. Received in formalin labeled KUSS, fundic gland polyp is a light abbott soft tissue bit, 0.3 cm. The specimen is filtered and entirely submitted in a single cassette. (1, ns, [id number],m3) DM.4. Received in formalin labeled KUSS, distal esophageal biopsy are three pale-abbott soft tissue bits, 0.2 cm each. The specimen is filtered and entirely submitted in a single cassette. (1, ns, [id number],m3) DM.dm/09/27/2024GRSpecimen(s) Received1: Second portion of duodenum biopsies2: Duodenal bulb biopsy3: Fundic gland polyp4: Esophageal distal biopsyFee Codes(s):1; 575679; 048941; 280395; 38002 MAGNESIUMon 09-22-2024 Magnesium [Mass/Vol] 1.8 mg/dL Normal 1.8-2.6 [facility] Comment on above: Performed By: #### 1 9123-9 ####[facility] ([id number])[address] [place] [address] MAGNESIUMon 09-15-2024 Magnesium [Mass/Vol] 1.8 mg/dL Normal 1.8-2.6 [facility] Comment on above: Performed By: #### 1 9123-9 ####[facility] ([id number])[address] [place] [address] MAGNESIUMon 09-08-2024 Magnesium [Mass/Vol] 1.7 mg/dL Low 1.8-2.6 [facility] Comment on above: Performed By: #### 1 9123-9 ####[facility] ([id number])[address] [place] [address] MAGNESIUMon 09-01-2024 Magnesium [Mass/Vol] 1.8 mg/dL Normal 1.8-2.6 [facility] Comment on above: Performed By: #### 1 9123-9 ####[facility] ([id number])[address] [place] [address] MAGNESIUMon 08-25-2024 Magnesium [Mass/Vol] 1.6 mg/dL Low 1.8-2.6 [facility] Comment on above: Performed By: #### 1 9123-9 ####[facility] ([id number])[address] [place] [address] MAGNESIUMon 08-18-2024 Magnesium [Mass/Vol] 1.6 mg/dL Low 1.8-2.6 [facility] Comment on above: Performed By: #### 1 9123-9 ####[facility] ([id number])[address] [place] [address], [place] [address] MAGNESIUMon 08-11-2024 Magnesium [Mass/Vol] 1.6 mg/dL Low 1.8-2.6 [facility] Comment on above: Performed By: #### 1 9123-9 ####[facility] ([id number])[address] [place] [address] MAGNESIUMon 08-04-2024 Magnesium [Mass/Vol] 1.5 mg/dL Low 1.8-2.6 [facility] Comment on above: Performed By: #### 1 9123-9 ####[facility] ([id number])[address] [place] [address] MAGNESIUMon 07-28-2024 Magnesium [Mass/Vol] 1.5 mg/dL Low 1.8-2.6 [facility] Comment on above: Performed By: #### 1 9123-9 ####[facility] ([id number])[address] [place] [address], [place] [address] MAGNESIUMon 07-21-2024 Magnesium [Mass/Vol] 1.6 mg/dL Low 1.8-2.6 [facility] Comment on above: Performed By: #### 1 9123-9 ####[facility] ([id number])[address] [place] [address], [place] [address] MAGNESIUMon 07-15-2024 Magnesium [Mass/Vol] 1.5 mg/dL Low 1.8-2.6 [facility] Comment on above: Performed By: #### 1 9123-9 ####[facility] ([id number])[address] [place] [address], [place] [address] MAGNESIUMon 07-07-2024 Magnesium [Mass/Vol] 1.6 mg/dL Low 1.8-2.6 [facility] Comment on above: Performed By: #### 1 9123-9 ####[facility] ([id number])[address] [place] [address], [place] [address] MAGNESIUMon 06-30-2024 Magnesium [Mass/Vol] 1.6 mg/dL Low 1.8-2.6 [facility] Comment on above: Performed By: #### 1 9123-9 ####[facility] ([id number])[address] [place] [address] MAGNESIUMon 06-23-2024 Magnesium [Mass/Vol] 1.7 mg/dL Low 1.8-2.6 [facility] Comment on above: Performed By: #### 1 9123-9 ####[facility] ([id number])[address] [place] [address], [place] [address] MAGNESIUMon 06-16-2024 Magnesium [Mass/Vol] 1.7 mg/dL Low 1.8-2.6 [facility] Comment on above: Performed By: #### 1 9123-9 ####[facility] ([id number])[address] [place] [address] MAGNESIUMon 06-09-2024 Magnesium [Mass/Vol] 1.7 mg/dL Low 1.8-2.6 [facility] Comment on above: Performed By: #### 1 9123-9 ####[facility] ([id number])[address] [place] [address] MAGNESIUMon 06-02-2024 Magnesium [Mass/Vol] 1.6 mg/dL Low 1.8-2.6 [facility] Comment on above: Performed By: #### 1 9123-9 ####[facility] ([id number])[address] [place] [address] URINE CULTUREon 05-30-2024 Bacteria identified Cx Nom [...] F TRIMETH/SULFAMETHOXAZOL E S <=/19 F Susceptible [facility] Comment on above: Performed By: #### 6 30-4 #### [facility] ([id number]) [address], [address] [place] [address] POCT Hemoglobin A1con 2023 HbA1c (Bld) [Mass fraction] 7.1 g/dL Abnormal 4 - 7 g/dL [facility] Interpretation and review of laboratory results Abnormal [facility] POCT urinalysis dipstick onl yon 05-27-2024 Appearance (U) cloudy [facility] Urine Bilirubin Negative [facility] Urine Blood Trace [facility] Urine Color yellow [facility] Urine Glucose Negative [facility] Urine Ketones Negative [facility] Urine Leukocyte Esterase Moderate [facility] Urine Nitrite Negative [facility] Urine Ph 5.5 [facility] Urine Protein 3+ [facility] Comment on above: >=300 External Poct Urine Specific [place] 1.025 [facility] Urine Urobilinogen 0.2 [facility] URINE CULTUREon 05-27-2024 Bacteria identified Cx Nom (U) CULTURE RESULTS MULTIPLE SPECIES PRESENT. PROBABLE COLLECTION CONTAMINATION. SUGGEST REPEAT SPECIMEN. Normal [facility] Comment on above: Performed By: #### 6 30-4 #### [facility] ([id number]) [address], [address] [place] [address] MAGNESIUMon 05-26-2024 Magnesium [Mass/Vol] 1.6 mg/dL Low 1.8-2.6 [facility] Comment on above: Performed By: #### 1 9123-9 ####[facility] ([id number])[address] [place] [address] MAGNESIUMon 05-19-2024 Magnesium [Mass/Vol] 1.7 mg/dL Low 1.8-2.6 [facility] Comment on above: Performed By: #### 1 9123-9 ####[facility] ([id number])[address] [place] [address] MAGNESIUMon 05-12-2024 Magnesium [Mass/Vol] 1.6 mg/dL Low 1.8-2.6 [facility] Comment on above: Performed By: #### 1 9123-9 ####[facility] ([id number])[address], [place] [address] MAGNESIUMon 06-24-2024 Magnesium [Mass/Vol] 1.4 mg/dL Low 1.8-2.6 [facility] Comment on above: Performed By: #### 1 9123-9 ####[facility] ([id number])[address] [place] [address] MAGNESIUMon 04-28-2024 Magnesium [Mass/Vol] 1.5 mg/dL Low 1.8-2.6 [facility] Comment on above: Performed By: #### 1 9123-9 ####[facility] ([id number])[address] [place] [address] COMPLETE BLOOD COUNTon 04-21 Erythrocyte distribution width (RBC) [Ratio] 16.6 % High 11.5-15.0 [facility] Comment on above: Performed By: #### C BC, UPCR, FEPR, 07244-4, RENAL, 3084-1, 2276-4, 2731-8, 81867-3 ####[facility] ([id number])[address], [address] [place] [address] Hematocrit (Bld) [Volume fraction] 33.8 % Low 35-47 [facility] Comment on above: Performed By: #### C BC, UPCR, FEPR, 34779-7, RENAL, 3084-1, 2276-4, 2731-8, 91320-4 ####[facility] ([id number])[address], [address] [place] [address]74 Hemoglobin (Bld) [Mass/Vol] 11.0 g/dL Low 11.7-15.5 [facility] Comment on above: Performed By: #### C BC, UPCR, FEPR, 14713-7, RENAL, 3084-1, 2276-4, 2731-8, 95257-5 ####[facility] ([id number])[address], [address] [place] [address] MCH (RBC) [Entitic mass] 30.0 pg Normal 27-34 [facility] Comment on above: Performed By: #### C BC, UPCR, FEPR, 85167-2, RENAL, 3084-1, 2276-4, 2731-8, 45365-9 ####[facility] ([id number])[address], [address], [place] [address] MCHC (RBC) [Mass/Vol] 32.7 g/dL Normal 32-36 [facility] Comment on above: Performed By: #### C BC, UPCR, FEPR, 27547-0, RENAL, 3084-1, 2276-4, 2731-8, 85332-6 ####[facility] ([id number])[address], [place] [address] MCV (RBC) [Entitic vol] 92 fL Normal 80-100 [facility] Comment on above: Performed By: #### C BC, UPCR, FEPR, 84817-1, RENAL, 3084-1, 2276-4, 2731-8, 91827-3 ####[facility] ([id number])[address], [place] [address] Platelet mean volume (Bld) [Entitic vol] 9.5 fL Normal 7-12 [facility] Comment on above: Performed By: #### C BC, UPCR, FEPR, 03112-0, RENAL, 3084-1, 2276-4, 2731-8, 81063-7 ####[facility] ([id number])[address] [place] [address] Platelets (Bld) [#/Vol] 182 10*3/uL Normal 150-450 [facility] Comment on above: Performed By: #### C BC, UPCR, FEPR, 52395-6, RENAL, 3084-1, 2276-4, 2731-8, 38208-4 ####[facility] ([id number])[address] [place] [address] RBC COUNT 3.68 X10E12/L Low 3.80-5.20 [facility] Comment on above: Performed By: #### C BC, UPCR, FEPR, 60394-7, RENAL, 3084-1, 2276-4, 2731-8, 39141-8 ####[facility] ([id number])[address], [place] [address] WBC (Bld) [#/Vol] 6.2 10*3/uL Normal 4.0-11.0 [facility] Comment on above: Performed By: #### C BC, UPCR, FEPR, 59260-9, RENAL, 3084-1, 2276-4, 2731-8, 45711-1 ####[facility] ([id number])[address], [place] [address] FERRITINon 04-21-2024 Ferritin [Mass/Vol] 113 ng/mL Normal 11-307 [facility] Comment on above: Performed By: #### C BC, UPCR, FEPR, 53376-2, RENAL, 3084-1, 2276-4, 2731-8, 89767-6 ####[facility] ([id number])[address], [place] [address] IRON PROFILEon 04-21-2024 Iron [Mass/Vol] 56 ug/dL Normal 50-170 [facility] Comment on above: Performed By: #### C BC, UPCR, FEPR, 31705-7, RENAL, 3084-1, 2276-4, 2731-8, 82946-6 ####[facility] ([id number])[address], [address] [place] [address] IRON BINDING 307 ug/dL Normal 250-425 [facility] Comment on above: Performed By: #### C BC, UPCR, FEPR, 69873-0, RENAL, 3084-1, 2276-4, 2731-8, 22815-4 ####[facility] ([id number])[address], [address] [place] [address] IRON SATURATION 18 % SATURATION Normal 15-50 [facility] Comment on above: Performed By: #### C BC, UPCR, FEPR, 52921-0, RENAL, 3084-1, 2276-4, 2731-8, 80968-6 ####[facility] ([id number])[address], [address] [place] [address] 09059 MAGNESIUMon 04-21-2024 Magnesium [Mass/Vol] 1.4 mg/dL Low 1.8-2.6 [facility] Comment on above: Performed By: #### C BC, UPCR, FEPR, 72428-5, RENAL, 3084-1, 2276-4, 2731-8, 11817-7 ####[facility] ([id number])[address], [address] [place] [address] 68035 PROTEIN CREAT RATIOon 2023 RANDOM URINE PROTEIN 470 mg/L High <120 [facility] Comment on above: Performed By: #### C BC, UPCR, FEPR, 16723-4, RENAL, 3084-1, 2276-4, 2731-8, 66243-5 ####[facility] ([id number])[address] [place] [address] 78563 U/PRO/TELEGRAPHIC TYPEWRITER INSTALLER RATIO CALC 0.50 High <0.2 [facility] Comment on above: Result Comment: Neph rotic Syndrome is associated with ratios >3.5 Performed By: #### C BC, UPCR, FEPR, 45837-3, RENAL, 3084-1, 2276-4, 2731-8, 52249-6 ####[facility] ([id number])[address], [address] [place] [address] 15863 URINE CREATININE,RDM 94.29 mg/dL Normal [facility] Comment on above: Performed By: #### C BC, UPCR, FEPR, 99342-2, RENAL, 3084-1, 2276-4, 2731-8, 68931-0 ####[facility] ([id number])[address], [address], [place] [address] Parathyrin.intact [Mass/Vol] on 04-21-2024 PTH INTACT 168 pg/mL High 12-88 [facility] Comment on above: Performed By: #### C BC, UPCR, FEPR, 98597-3, RENAL, 3084-1, 2276-4, 2731-8, 29215-0 ####[facility] ([id number])[address], [address], [place] [address] RENAL PANELon 04-21-2024 Albumin [Mass/Vol] 3.7 g/dL Normal 3.2-5.3 [facility] Comment on above: Performed By: #### C BC, UPCR, FEPR, 97232-8, RENAL, 3084-1, 2276-4, 2731-8, 21263-4 ####[facility] ([id number])[address], [address], [place] [address] Anion gap [Moles/Vol] 11 mmol/L Normal 5-15 [facility] Comment on above: Performed By: #### C BC, UPCR, FEPR, 88078-8, RENAL, 3084-1, 2276-4, 2731-8, 95228-5 ####[facility] ([id number])[address], [address], [place] [address] Calcium [Mass/Vol] 8.9 mg/dL Normal 8.5-10.5 [facility] Comment on above: Performed By: #### C BC, UPCR, FEPR, 32550-1, RENAL, 3084-1, 2276-4, 2731-8, 33181-2 ####[facility] ([id number])[address] [address] [place] [address] 06067 Chloride [Moles/Vol] 106 mmol/L Normal 98-109 [facility] Comment on above: Performed By: #### C BC, UPCR, FEPR, 06678-5, RENAL, 3084-1, 2276-4, 2731-8, 46508-2 ####[facility] ([id number])[address], [address] [place] [address] 27853 CO2 [Moles/Vol] 26 mmol/L Normal 22-32 [facility] Comment on above: Performed By: #### C BC, UPCR, FEPR, 80704-0, RENAL, 3084-1, 2276-4, 2731-8, 74070-1 ####[facility] ([id number])[address] [address] [place] [address] 26566 Creatinine [Mass/Vol] 1.78 mg/dL High 0.40-1.00 [facility] Comment on above: Result Comment: METH OD TRACEABLE TO IDMS STANDARD Performed By: #### C BC, UPCR, FEPR, 42194-4, RENAL, 3084-1, 2276-4, 2731-8, 87738-6 ####[facility] ([id number])[address] [address] GFR/1.73 sq M.predicted among non-blacks MDRD (S/P/Bld) [Vol rate/Area] 28 mL/min/{1.73_m2} Low >59 [facility] Comment on above: Result Comment: Repo rted eGFR is based on theCKD-EPI 2020 equation that doesnot use a race coefficient. Performed By: #### C BC, UPCR, FEPR, 42892-4, RENAL, 3084-1, 2276-4, 2731-8, 42541-8 ####[facility] ([id number])[address], [address], [place] [address] Glucose [Mass/Vol] 157 mg/dL High 65-99 [facility] Comment on above: Performed By: #### C BC, UPCR, FEPR, 51028-8, RENAL, 3084-1, 2276-4, 2731-8, 84746-9 ####[facility] ([id number])[address], [address], [place] [address] Phosphate [Mass/Vol] 3.8 mg/dL Normal 2.4-4.9 [facility] Comment on above: Performed By: #### C BC, UPCR, FEPR, 87236-1, RENAL, 3084-1, 2276-4, 2731-8, 67752-9 ####[facility] ([id number])[address], [address] [place] [address] Potassium [Moles/Vol] 4.2 mmol/L Normal 3.5-5.0 [facility] Comment on above: Performed By: #### C BC, UPCR, FEPR, 82573-2, RENAL, 3084-1, 2276-4, 2731-8, 75207-8 ####[facility] ([id number])[address], [address], [place] [address] Sodium [Moles/Vol] 143 mmol/L Normal 134-146 [facility] Comment on above: Performed By: #### C BC, UPCR, FEPR, 03119-5, RENAL, 3084-1, 2276-4, 2731-8, 42877-6 ####[facility] ([id number])[address], [address], [place] [address] Urea nitrogen [Mass/Vol] 42 mg/dL High 5-27 [facility] Comment on above: Performed By: #### C BC, UPCR, FEPR, 13029-0, RENAL, 3084-1, 2276-4, 2731-8, 18465-3 ####[facility] ([id number])[address], [address], [place] [address] URIC ACIDon 04-21-2024 Urate [Mass/Vol] 4.3 mg/dL Normal 2.6-7.2 [facility] Comment on above: Performed By: #### C BC, UPCR, FEPR, 59306-2, RENAL, 3084-1, 2276-4, 2731-8, 86285-8 ####[facility] ([id number])[address], [address], [place] [address] URINALYSISon 04-21-2024 Bilirubin Ql (U) Negative Normal NEG [facility] Comment on above: Performed By: #### U A ####[facility] ([id number])[address], [address], [place] [address] BLOOD/HGB Trace Abnormal NEG [facility] Comment on above: Performed By: #### U A ####[facility] ([id number])[address], [address], [place] [address] Color (U) YELLOW Normal YELLOW [facility] Comment on above: Performed By: #### U A ####[facility] ([id number])[address], [address], [place] [address] Glucose Ql (U) Negative Normal NEG [facility] Comment on above: Performed By: #### U A ####[facility] ([id number])[address], [address], [place] [address] Ketones Ql (U) Negative Normal NEG [facility] Comment on above: Performed By: #### U A ####[facility] ([id number])[address], [address], [place] [address] Leukocyte esterase Test strip Ql (U) Large Abnormal NEG [facility] Comment on above: Performed By: #### U A ####[facility] ([id number])[address], [address] [place] [address] MUCOUS PRESENT Abnormal NONE [facility] Comment on above: Performed By: #### U A ####[facility] ([id number])[address], [address], [place] [address] Nitrite Ql (U) Negative Normal NEG [facility] Comment on above: Performed By: #### U A ####[facility] ([id number])[address], [address] [place] [address] pH (U) 6.0 [pH] Normal 5.0-8.5 [facility] Comment on above: Performed By: #### U A ####[facility] ([id number])[address] [address], [place] [address] Protein Ql (U) 50 mg/dL Abnormal NEG [facility] Comment on above: Performed By: #### U A ####[facility] ([id number])[address] [address] [place] [address] R.B.CELLS 5 /hpf Normal 0-5 [facility] Comment on above: Performed By: #### U A ####[facility] ([id number])[address] [address] [place] [address] Specific gravity (U) [Rel density] 1.014 Normal 1.003-1.035 [facility] Comment on above: Performed By: #### U A ####[facility] ([id number])[address] [address] [place] [address] SQUAMOUS EPITHELIUM 1 /hpf Normal 0-5 [facility] Comment on above: Performed By: #### U A ####[facility] ([id number])[address], [address] [place] [address] TURBIDITY HAZY Abnormal CLEAR [facility] Comment on above: Performed By: #### U A ####[facility] ([id number])[address] [facility] [address], [place] [address] Urobilinogen (U) [Mass/Vol] mg/dL Normal <1.1 [facility] Comment on above: Performed By: #### U A ####[facility] ([id number])[address] [address] W.B.CELLS 455 /hpf High 0-5 [facility] Comment on above: Performed By: #### U A ####[facility] ([id number])[address] [address] WBC CLUMPS RARE Abnormal NONE [facility] Comment on above: Performed By: #### U A ####[facility] ([id number])[address] [address] Vitamin D+Metabolites [Mass/ Vol]on 04-21-2024 VITAMIN D 25 HYD TOT 32.8 ng/mL Normal 30-100 [facility] Comment on above: Result Comment: Radha min D status 25 [place] Vitamin D Deficiency <20 ng/mLInsufficiency 20-29 ng/mLSufficiency 30-100 ng/mLToxicity >100 ng/mLNOTE: A pediatric reference range has not beenestablished by the light bulb replacer of this kit.The [place] [employer] recommendsa Vitamin D level of = or >20ng/mL in infantsand children. Performed By: #### C BC, UPCR, FEPR, 51521-0, RENAL, 3084-1, 2276-4, 2731-8, 93205-6 ####[facility] ([id number])[address] [address] MAGNESIUMon 04-14-2024 Magnesium [Mass/Vol] 1.6 mg/dL Low 1.8-2.6 [facility] Comment on above: Performed By: #### 1 9123-9 ####[facility] ([id number])[address] [place] [address] MAGNESIUMon 04-08-2024 Magnesium [Mass/Vol] 1.5 mg/dL Low 1.8-2.6 [facility] Comment on above: Performed By: #### 1 9123-9 ####[facility] ([id number])[address] [place] [address] MAGNESIUMon 03-31-2024 Magnesium [Mass/Vol] 1.7 mg/dL Low 1.8-2.6 [facility] Comment on above: Performed By: #### 1 9123-9 ####[facility] ([id number])[address] [place] [address] 14512 MAGNESIUMon 03-24-2024 Magnesium [Mass/Vol] 1.6 mg/dL Low 1.8-2.6 [facility] Comment on above: Performed By: #### 1 9123-9 ####[facility] ([id number])[address] [place] [address] 83628 MAGNESIUMon 03-17-2024 Magnesium [Mass/Vol] 1.6 mg/dL Low 1.8-2.6 [facility] Comment on above: Performed By: #### 1 9123-9 ####[facility] ([id number])[address] [place] [address]450 MAGNESIUMon 03-10-2024 Magnesium [Mass/Vol] 1.6 mg/dL Low 1.8-2.6 [facility] Comment on above: Performed By: #### 1 9123-9 ####[facility] ([id number])[address] [place] [address]39 MAGNESIUMon 03-03-2024 Magnesium [Mass/Vol] 1.8 mg/dL Normal 1.8-2.6 [facility] Comment on above: Performed By: #### 1 9123-9 ####[facility] ([id number])[address] [place] [address]329 MAGNESIUMon 02-25-2024 Magnesium [Mass/Vol] 1.9 mg/dL Normal 1.8-2.6 [facility] Comment on above: Performed By: #### 1 9123-9 ####[facility] ([id number])[address] [place] [address] 44668 MAGNESIUMon 02-18-2024 Magnesium [Mass/Vol] 1.9 mg/dL Normal 1.8-2.6 [facility] Comment on above: Performed By: #### 1 9123-9 ####[facility] ([id number])[address] [place] [address] 40651 MAGNESIUMon 02-11-2024 Magnesium [Mass/Vol] 2.0 mg/dL Normal 1.8-2.6 [facility] Comment on above: Performed By: #### 1 9123-9 ####[facility] ([id number])[address] [place] [address] 93321 MAGNESIUMon 02-04-2024 Magnesium [Mass/Vol] 1.8 mg/dL Normal 1.8-2.6 [facility] Comment on above: Performed By: #### 1 9123-9 ####[facility] ([id number])[address] [place] [address]84 MAGNESIUMon 01-28-2024 Magnesium [Mass/Vol] 1.8 mg/dL Normal 1.8-2.6 [facility] Comment on above: Performed By: #### 1 9123-9 ####[facility] ([id number])[address] [place] [address] 06541 MAGNESIUMon 01-21-2024 Magnesium [Mass/Vol] 1.7 mg/dL Low 1.8-2.6 [facility] Comment on above: Performed By: #### 2 823-3, 84951-4 ####[facility] ([id number])[address] [place] [address] POTASSIUMon 01-21-2024 Potassium [Moles/Vol] 3.6 mmol/L Normal 3.5-5.0 [facility] Comment on above: Performed By: #### 2 823-3, 67927-5 ####[facility] ([id number])[address] [place] [address] 83073 MAGNESIUMon 01-14-2024 Magnesium [Mass/Vol] 1.6 mg/dL Low 1.8-2.6 [facility] Comment on above: Performed By: #### 1 9123-9 ####[facility] ([id number])[address] [place] [address]6925 MAGNESIUMon 01-07-2024 Magnesium [Mass/Vol] 1.7 mg/dL Low 1.8-2.6 [facility] Comment on above: Performed By: #### 1 9123-9 ####[facility] ([id number])[address] [place] [address] 97877 MAGNESIUMon 12-31-2023 Magnesium [Mass/Vol] 1.7 mg/dL Low 1.8-2.6 [facility] Comment on above: Performed By: #### 1 9123-9 ####[facility] ([id number])[address] [place] [address] 01355 MAGNESIUMon 12-24-2023 Magnesium [Mass/Vol] 1.6 mg/dL Low 1.8-2.6 [facility] Comment on above: Performed By: #### 1 9123-9 ####[facility] ([id number])[address] [place] [address]953 MAGNESIUMon 12-17-2023 Magnesium [Mass/Vol] 1.5 mg/dL Low 1.8-2.6 [facility] Comment on above: Performed By: #### 1 9123-9 ####[facility] ([id number])[address] [place] [address] 43200 MAGNESIUMon 12-10-2023 Magnesium [Mass/Vol] 1.7 mg/dL Low 1.8-2.6 [facility] Comment on above: Performed By: #### 1 9123-9 ####[facility] ([id number])[address] [place] [address] 01903 MAGNESIUMon 12-03-2023 Magnesium [Mass/Vol] 1.7 mg/dL Low 1.8-2.6 [facility] Comment on above: Performed By: #### 1 9123-9 ####[facility] ([id number])[address] [place] [address] COMPREHENSIVE METABOLIC PANE Jared 11-26-2023 Albumin [Mass/Vol] 3.9 g/dL Normal 3.2-5.3 [facility] Comment on above: Performed By: #### 1 9123-9 ####[facility] ([id number])[address] [place] [address] 07861#### JAS, 48604-0 ####[facility] ([id number])[address] [facility] [address] [place] [address] ALP [Catalytic activity/Vol] 122 U/L Normal 39-130 [facility] Comment on above: Performed By: #### 1 9123-9 ####[facility] ([id number])[address] [place] [address] 16582#### JAS, 18382-2 ####[facility] ([id number])[address], [place] [address] ALT [Catalytic activity/Vol] 29 U/L Normal 0-31 [facility] Comment on above: Performed By: #### 1 9123-9 ####[facility] ([id number])[address] [place] [address] 39410#### JAS, 48331-4 ####[facility] ([id number])[address], [place] [address] Anion gap [Moles/Vol] 9 mmol/L Normal 5-15 [facility] Comment on above: Performed By: #### 1 9123-9 ####[facility] ([id number])[address] [place] [address] 16143#### JAS, 47437-6 ####[facility] ([id number])[address], [address], [place] [address] AST [Catalytic activity/Vol] 22 U/L Normal 0-41 [facility] Comment on above: Performed By: #### 1 9123-9 ####[facility] ([id number])[address] [place] [address] 79710#### JAS, 05262-5 ####[facility] ([id number])[address], [place] [address] Bilirubin [Mass/Vol] 0.4 mg/dL Normal 0.3-1.2 [facility] Comment on above: Performed By: #### 1 9123-9 ####[facility] ([id number])[address] [place] [address]#### CMP, 09529-7 ####[facility] ([id number])[address], [place] [address] Calcium [Mass/Vol] 9.7 mg/dL Normal 8.5-10.5 [facility] Comment on above: Performed By: #### 1 9123-9 ####[facility] ([id number])[address] [place] [address] 57449#### JAS, 26298-4 ####[facility] ([id number])[address], [place] [address] Chloride [Moles/Vol] 103 mmol/L Normal 98-109 [facility] Comment on above: Performed By: #### 1 9123-9 ####[facility] ([id number])[address] [place] [address] 25956#### JAS, 52485-8 ####[facility] ([id number])[address] [place] [address] CO2 [Moles/Vol] 30 mmol/L Normal 22-32 [facility] Comment on above: Performed By: #### 1 9123-9 ####[facility] ([id number])[address] [place] [address] 71544#### JAS, 04727-1 ####[facility] ([id number])[address], [place] [address] Creatinine [Mass/Vol] 1.53 mg/dL High 0.40-1.00 [facility] Comment on above: Result Comment: METH OD TRACEABLE TO IDMS STANDARD Performed By: #### 1 9123-9 ####[facility] ([id number])[address] [place] [address] 05897#### JAS, 73860-0 ####[facility] ([id number])[address], [place] [address] GFR/1.73 sq M.predicted among non-blacks MDRD (S/P/Bld) [Vol rate/Area] 34 mL/min/{1.73_m2} Low >59 [facility] Comment on above: Result Comment: Repo rted eGFR is based on theD-EPI 2020 equation that doesnot use a race coefficient. Performed By: #### 1 9123-9 ####[facility] ([id number])[address] [place] [address] 11824#### JAS, 33452-5 ####[facility] ([id number])[address], [place] [address] Glucose [Mass/Vol] 165 mg/dL High 65-99 [facility] Comment on above: Performed By: #### 1 9123-9 ####[facility] ([id number])[address] [place] [address] 43923#### JAS, 54233-9 ####[facility] ([id number])[address], [place] [address] Potassium [Moles/Vol] 4.4 mmol/L Normal 3.5-5.0 [facility] Comment on above: Performed By: #### 1 9123-9 ####[facility] ([id number])[address] [place] [address] 75257#### JAS, 09495-0 ####[facility] ([id number])[address] [place] [address] Protein [Mass/Vol] 7.1 g/dL Normal 6.0-8.0 [facility] Comment on above: Performed By: #### 1 9123-9 ####[facility] ([id number])[address] [place] [address] 78976#### JAS, 53596-5 ####[facility] ([id number])[address] [place] [address] Sodium [Moles/Vol] 142 mmol/L Normal 134-146 [facility] Comment on above: Performed By: #### 1 9123-9 ####[facility] ([id number])[address] [place] [address] 40353#### CMP, 61966-8 ####[facility] ([id number])[address] [place] [address] Urea nitrogen [Mass/Vol] 43 mg/dL High 5-27 [facility] Comment on above: Performed By: #### 1 9123-9 ####[facility] ([id number])[address] [place] [address] 42603#### JAS, 85300-4 ####[facility] ([id number])[address], [address] [place] [address] 34333 HGB A1C (GLYCO-HGB)on 2023 Glucose [Mass/Vol] 163 mg/dL Normal [facility] Comment on above: Performed By: #### 1 9123-9 ####[facility] ([id number])[address] [place] [address] 93866#### CMP, 18343-7 ####[facility] ([id number])[address], [address] [place] [address]379 HbA1c (Bld) [Mass fraction] 7.3 % High 4.4-5.6 [facility] Comment on above: Result Comment: NOTE ADA Guidelines Result HgbA1c Normal : less than 5.7 % Prediabetes : 5.7 % to 6.4 % Diabetes : > 6.4 %Use with caution in patients with abnormal hemoglobin variants asthe half-life of red blood cells and in vivo glycation rates areaffected. Performed By: #### 1 9123-9 ####[facility] ([id number])[address] [place] [address]65#### JAS, 13639-5 ####[facility] ([id number])[address] [place] [address], [address] [address] Lipid 1996 panelon 4 Cholesterol [Mass/Vol] 145 mg/dL Low 150-200 [facility] Comment on above: Performed By: #### 1 9123-9 ####[facility] ([id number])[address] [place] [address] 81619#### JAS, 95912-6 ####[facility] ([id number])[address] [place] [address]285 Cholesterol in HDL [Mass/Vol] 53 mg/dL Normal >39 [facility] Comment on above: Result Comment: HDL <40 mg/dL - High RiskHDL > or = 40mg/dL- DesirableHDL >60 mg/dL - Negative Risk Performed By: #### 1 9123-9 ####[facility] ([id number])[address] [place] [address]135#### JAS, 52622-4 ####[facility] ([id number])[address] [place] [address], [address] [address] Cholesterol in LDL [Mass/Vol] 43 mg/dL Normal <130 [facility] Comment on above: Result Comment: LDL <100 mg/dL - DesirableLDL >160 mg/dL - High Risk Performed By: #### 1 9123-9 ####[facility] ([id number])[address] [place] [address] 29617#### CMP, 40749-1 ####[facility] ([id number])[address], [address] [place] [address]6021 Cholesterol in VLDL [Mass/Vol] 49 mg/dL High 0-30 [facility] Comment on above: Performed By: #### 1 9123-9 ####[facility] ([id number])[address] [place] [address]7414#### CMP, 08958-4 ####[facility] ([id number])[address], [address] [place] [address]941 CHOLESTEROL:HDL 2.7 Normal 1.0-5.0 [facility] Comment on above: Performed By: #### 1 9123-9 ####[facility] ([id number])[address] [place] [address]#### CMP, 39113-6 ####[facility] ([id number])[address] [facility] [address] [place] [address] Triglyceride [Mass/Vol] 245 mg/dL High 27-150 [facility] Comment on above: Performed By: #### 1 9123-9 ####[facility] ([id number])[address] [place] [address]#### CMP, 48950-9 ####[facility] ([id number])[address], [address] [place] [address] MAGNESIUMon 11-26-2023 Magnesium [Mass/Vol] 1.8 mg/dL Normal 1.8-2.6 [facility] Comment on above: Performed By: #### 1 9123-9 ####[facility] ([id number])[address] [place] [address]4945#### CMP, 01503-0 ####[facility] ([id number])[address], [address], [place] [address] MICROALBUMIN - ALBUMIN:CREAT ININE URINE RATIOon 11-26-2023 ALB/CREAT RATIO 352.8 mg/g creat High 0.0-30.0 [facility] Comment on above: Performed By: #### M ALBU #### [facility] ([id number]) [address], [address] [place] [address] Albumin DL <= 20 mg/L (U) [Mass/Vol] 14.6 mg/dL High 0.0-1.9 [facility] Comment on above: Performed By: #### M ALBU #### [facility] ([id number]) [address] [place] [address] URINE CREAT 41.38 mg/dL Normal [facility] Comment on above: Performed By: #### M ALBU #### [facility] ([id number]) [address], [address] [place] [address] Office Visiton 11-19-2023 Follow-up visit [id number] Adore Wolff 1940 F Date Provider Department Center 11/19/2023 DARELL [place] [facility] Family History Problem Relation Age of Onset Heart attack Mother Family Status - Relation Status Age at Mother Level of Service:03487 [place] OFFICE/OUTPATIENT ESTABLISHED LOW MDM [address] [facility] Magnesium [Mass/volume] in S asiya or PlasmaOrdered By: Gia Conley on 11-16-2023 Magnesium [Mass/Vol] 1.4 mg/dL 1.9-2.7 [facility] Multiple labsOrdered By: Mary Ann Carter on 11-16-2023 [facility] PTH INTACTon 01-16-2023 PTH, Intact 115 pg/mL Critically high 15-65 [facility] Comment on above: Performed By: #### M G, URIC, RENAL #### [facility] [address] [place] [address] Dr. aNcho Jeffery FERRITINon 01-15-2023 Ferritin [Mass/Vol] 304.0 ng/mL Critically high 8.0-252.0 [facility] Comment on above: Performed By: #### M G, URIC, RENAL #### [facility] [address] [place] [address] Dr. Nacho Jeffery HEMOGRAM AND PLATELon 2022 Hematocrit (Bld) [Volume fraction] 36.0 % Normal 36.0-48.0 [facility] Comment on above: Performed By: #### M G, URIC, RENAL #### [facility] [address] [place] [address] Dr. Nacho Jeffery Hemoglobin (Bld) [Mass/Vol] 11.6 g/dL Critically low 12.0-16.0 [facility] Comment on above: Performed By: #### M G, URIC, RENAL #### [facility] [address] [place] [address] Dr. Nacho Jeffery MCH (RBC) [Entitic mass] 29.4 pg Normal 26.7-34.0 [facility] Comment on above: Performed By: #### M G, URIC, RENAL #### [facility] [address] [place] [address] Dr. Nacho Jeffery MCHC (RBC) [Mass/Vol] 32.2 g/dL Normal 29.9-35.2 [facility] Comment on above: Performed By: #### M G, URIC, RENAL #### [facility] [address] [place] [address] Dr. Nacho Jeffery MCV (RBC) [Entitic vol] 91.4 fL Normal 81.0-99.0 [facility] Comment on above: Performed By: #### M G, URIC, RENAL #### [facility] [address] [place] [address] Dr. Nacho Jeffery PLT 202 103/ul Normal 150-450 [facility] Comment on above: Performed By: #### M G, URIC, RENAL #### [facility] [address] [place] [address] Dr. Nacho Jeffery RBC 3.94 106/ul Critically low 4.20-5.40 [facility] Comment on above: Performed By: #### M Jamarcus URIC, RENAL #### [facility] [address] [address] [address] Nacho Jeffery WBC 5.9 103/ul Normal 4.0-11.0 [facility] Comment on above: Performed By: #### M Jamarcus, URIC, RENAL #### [facility] [address] [address] [address] Nacho Jeffery IRON AND TIBCon 01-15-2023 % SATURATION 23.4 % Normal [facility] Comment on above: Performed By: #### M Jamarcus URIC, RENAL #### [facility] [address] [place] [address] Dr. Nacho Jeffery Iron [Mass/Vol] 62.0 ug/dL Normal 50.0-170.0 [facility] Comment on above: Performed By: #### M Jamarcus, URIC, RENAL #### [facility] [address] [place] [address] Dr. Nacho Jeffery TIBC DIRECT 265.0 ug/dL Normal 250.0-450.0 [facility] Comment on above: Performed By: #### M Jamarcus URIC, RENAL #### [facility] [address] [place] [address] Dr. Nacho eJffery MAGNESIUMon 01-15-2023 Magnesium [Mass/Vol] 1.5 mg/dL Critically low 1.8-2.4 [facility] Comment on above: Performed By: #### M Jamarcus, URIC, RENAL #### [facility] [address] [place] [address] Dr. Nacho Jeffery RENAL FUNCTION PANELon 01-15 Albumin [Mass/Vol] 3.4 g/dL Normal 3.4-5.0 [facility] Comment on above: Performed By: #### M Jamarcus, URIC, RENAL #### [facility] [address] [place] [address] Dr. Nacho Jeffery Calcium [Mass/Vol] 9.2 mg/dL Normal 8.5-10.1 [facility] Comment on above: Performed By: #### M G, URIC, RENAL #### [facility] [address] [address] [address] Nacho Jeffery Chloride [Moles/Vol] 104 mmol/L Normal 98-107 [facility] Comment on above: Performed By: #### M G, URIC, RENAL #### [facility] [address] [place] [address] Dr. Nacho Jeffery CO2 [Moles/Vol] 30.8 mmol/L Normal 21.0-32.0 [facility] Comment on above: Performed By: #### M G, URIC, RENAL #### [facility] [address] [place] [address] Dr. Nacho Jeffery Creatinine [Mass/Vol] 1.52 mg/dL Critically high 0.55-1.02 [facility] Comment on above: Performed By: #### M G, URIC, RENAL #### [facility] [address] [place] [address] Dr. Nacho Jeffery EGFR-AF DUTCH 40 mL/min/1.73m2 Critically low >=60 [facility] Comment on above: Performed By: #### M G, URIC, RENAL #### [facility] [address] [place] [address] Dr. Nacho Jeffery EGFR-NON AF DUTCH 33 mL/min/1.73m2 Critically low >=60 [facility] Comment on above: Performed By: #### M G, URIC, RENAL #### [facility] [address] [place] [address] Dr. Nacho Jeffery Glucose [Mass/Vol] 172 mg/dL Critically high 74-106 [facility] Comment on above: Performed By: #### M G, URIC, RENAL #### [facility] [address] [place] [address] Dr. Nacho Jeffery Phosphate [Mass/Vol] 3.7 mg/dL Normal 2.6-4.7 [facility] Comment on above: Performed By: #### M G, URIC, RENAL #### [facility] [address] [place] [address] Dr. Nacho Jeffery Potassium [Moles/Vol] 4.2 mmol/L Normal 3.5-5.1 [facility] Comment on above: Performed By: #### M G, URIC, RENAL #### [facility] [address] [place] [address] Dr. Nacho Jeffery Sodium [Moles/Vol] 143 mmol/L Normal 136-145 [facility] Comment on above: Performed By: #### M G, URIC, RENAL #### [facility] [address] [place] [address] Dr. Nacho Jeffery Urea nitrogen [Mass/Vol] 56.0 mg/dL Critically high 7.0-18.0 [facility] Comment on above: Performed By: #### M G, URIC, RENAL #### [facility] [address] [place] [address] Dr. Nacho Jeffery UA RANDOM W/MICROSCOPICon BACTERIA NONE SEEN Normal NONE SEEN [facility] Comment on above: Performed By: #### M G, URIC, RENAL #### [facility] [address] [place] [address] Dr. Nacho Jeffery Bilirubin Ql (U) Negative Normal NEGATIVE [facility] Comment on above: Performed By: #### M G, URIC, RENAL #### [facility] [address] [place] [address] Dr. Nacho Jeffery CAST NONE SEEN Normal NONE SEEN [facility] Comment on above: Performed By: #### M G, URIC, RENAL #### [facility] [address] [place] [address] Dr. Nacho Jeffery Clarity (U) CLEAR Normal CLEAR [facility] Comment on above: Performed By: #### M G, URIC, RENAL #### [facility] [address] [place] [address] Dr. Nacho Jeffery Color (U) LT. YELLOW Normal YELLOW [facility] Comment on above: Performed By: #### M G, URIC, RENAL #### [facility] [address] [place] [address] Dr. Nacho Jeffery Crystals LM Nom (Urine sed) NONE SEEN Normal NONE SEEN [facility] Comment on above: Performed By: #### M G, URIC, RENAL #### [facility] [address] [address] [address] Nacho Jeffery Epithelial cells LM Ql (Urine sed) RARE Normal NONE SEEN /RARE [facility] Comment on above: Performed By: #### M G, URIC, RENAL #### [facility] [address] [address] [address] Nacho Jeffery Glucose Ql (U) Negative Normal NEGATIVE [facility] Comment on above: Performed By: #### M G, URIC, RENAL #### [facility] [address] [address] [address] Nacho Jeffery Hemoglobin Ql (U) Negative Normal NEGATIVE [facility] Comment on above: Performed By: #### M G, URIC, RENAL #### [facility] [address] [place] [address] Dr. Nacho Jeffery Ketones Ql (U) Negative Normal NEGATIVE [facility] Comment on above: Performed By: #### M G, URIC, RENAL #### [facility] [address] [address] [address] Nacho Jeffery LEUKOCYTES TRACE Abnormal NEGATIVE [facility] Comment on above: Performed By: #### M G, URIC, RENAL #### [facility] [address] [address] [address] Nacho Jeffery MUCOUS NONE SEEN Normal NONE SEEN [facility] Comment on above: Performed By: #### M G, URIC, RENAL #### [facility] [address] [address] [address] Nacho Jeffery Nitrite Ql (U) Negative Normal NEGATIVE [facility] Comment on above: Performed By: #### M G, URIC, RENAL #### [facility] [address] [address] [address] Nacho Jeffery pH (U) 5.5 [pH] Normal 5-9 [facility] Comment on above: Performed By: #### M G, URIC, RENAL #### [facility] [address] [address] [address] Nacho Jeffery RBC 0-2 Normal 0-2 [facility] Comment on above: Performed By: #### M G, URIC, RENAL #### [facility] [address] [place] [address] Dr. Nacho Jeffery SPEC GRAVITY 1.015 Normal 1.005-<=1.025 [facility] Comment on above: Performed By: #### M G, URIC, RENAL #### [facility] [address] [place] [address] Dr. Nacho Jeffery UA PROTEIN Negative Normal NEGATIVE/ TRACE [facility] Comment on above: Performed By: #### M G, URIC, RENAL #### [facility] [address] [place] [address] Dr. Nacho Jeffery Urobilinogen Qn (U) 0.2 {Zuleyka'U}/dL Normal 0.2 - 1. 0 [facility] Comment on above: Performed By: #### M G, URIC, RENAL #### [facility] [address] [place] [address] Dr. Nacho Jeffery WBC 2-5 Abnormal NONE SEEN [facility] Comment on above: Performed By: #### M G, URIC, RENAL #### [facility] [address] [place] [address] Dr. Nacho Jeffery URIC ACID SERUMon 01-15-2023 Urate [Mass/Vol] 7.0 mg/dL Critically high 2.6-6.0 [facility] Comment on above: Performed By: #### M G, URIC, RENAL #### [facility] [address] [place] [address] Dr. Nacho Jeffery URINE T PROTEIN CREAT RATIOo n 01-15-2023 Protein (U) [Mass/Vol] 13.4 mg/dL Critically high <=12.0 [facility] Comment on above: Performed By: #### U RTPCR #### [facility] [address] [place] [address] Dr. Nacho Jeffery UR PROT CREAT RAT 0.[address] [facility] Comment on above: Performed By: #### U RTPCR #### [facility] [address] [address] [address] Nacho Jeffery URINE CREAT 56.90 mg/dL Normal 20.00-300.00 [facility] Comment on above: Performed By: #### U RTPCR #### [facility] [address] [address] [address] Nacho Jeffery VITAMIN D 25 OHon 01-15-2023 VIT D 25-OH 52.6 ng/mL Normal [facility] Comment on above: Performed By: #### M G, URIC, RENAL #### [facility] [address] [address] [address] Nacho Jeffery VIT D RANGES SEE BELOW Normal [facility] Comment on above: Result Comment: <20 ng/mL Vit D deficient 20 - <30 ng/mL Vit D insufficient 30 - 100 ng/mL Vit D sufficient >100 ng/mL Potential Toxicity Performed By: #### M G, URIC, RENAL #### [facility] [address] [place] [address] Dr. Nacho Jeffery Telemedicineon 12-06-2022 Telemedicine [id number] [place] M 1940 F Date Provider Department Center 12/06/2022 [facility] Family History Problem Relation Age of Onset Heart attack Mother Family Status - Relation Status Age at Mother Level of Service:87819 AR OFFICE/OUTPATIENT EST PT MAY NOT REQ PHYS/QHP Normal [facility] GLYCOHEMOGLOBIN A1Con 2021 ADA RECOMMENDATION SEE BELOW Normal [facility] Comment on above: Result Comment: ADA RECOMMENDED LIMIT 4.0 - 6.0 ADA THERAPEUTIC TARGET < 7.0 ACTION SUGGESTED > 7.0 Performed By: #### A 1C #### [facility] [address] [place] [address] Dr. Nacho Jeffery Glucose [Mass/Vol] 143 mg/dL Normal [facility] Comment on above: Performed By: #### A 1C #### [facility] [address] [place] [address] Dr. Nacho Jeffery HbA1c (Bld) [Mass fraction] 6.6 % Critically high 4.5-6.2 [facility] Comment on above: Performed By: #### A 1C #### [facility] [address] [place], [place] [address] Dr. Nacho Jeffery LIPID PROFILEon 11-09-2022 CHOL-HDL RATIO NORM SEE BELOW Normal [facility] Comment on above: Result Comment: 3.3 - 4.4 LOW RISK 4.4 - 7.1 AVERAGE RISK 7.1 - 11.0 MODERATE RISK >11.0 HIGH RISK Performed By: #### M Jamarcus, URIC, RENAL #### [facility] [address] [place], [place] [address] Dr. Nacho Jeffery Cholesterol [Mass/Vol] 141 mg/dL Normal <=200 [facility] Comment on above: Performed By: #### M Jamarcus URIC, RENAL #### [facility] [address] [place], [place] [address] Dr. Nacho Jeffery Cholesterol in HDL [Mass/Vol] 59 mg/dL Normal 40-60 [facility] Comment on above: Performed By: #### M Jamarcus URIC, RENAL #### [facility] [address] [place], [place] [address] Dr. Nacho Jeffery Cholesterol in LDL [Mass/Vol] 46.2 mg/dL Normal [facility] Comment on above: Performed By: #### M Jamarcus URIC, RENAL #### [facility] [address] [place], [place] [address] Dr. Nacho Jeffery Cholesterol.total/C holesterol in HDL [Mass ratio] 2.4 {ratio} Normal [facility] Comment on above: Performed By: #### M Jamarcus URIC, RENAL #### [facility] [address] [place], [place] [address] Dr. Nacho Jeffery HDL NORMAL > or = 60 mg/dl - LO W CARDIOVASCULAR RISK <40 mg/dl - HIGH CARDIOVASCULAR RISK Normal [facility] Comment on above: Performed By: #### M Jamarcus URIC, RENAL #### [facility] [address] [place], [place] [address] Dr. Nacho Jeffery LDL CALC NORMAL SEE BELOW Normal [facility] Comment on above: Result Comment: <100 mg/dl OPTIMAL 100 - 129 mg/dl NEAR OR ABOVE OPTIMAL 130 - 159 mg/dl BORDERLINE HIGH 160 - 189 mg/dl HIGH >190 mg/dl VERY HIGH Performed By: #### M G, URIC, RENAL #### [facility] [address] [place] [address] Dr. Nacho Jeffery Triglyceride [Mass/Vol] 179 mg/dL Critically high <=150 [facility] Comment on above: Performed By: #### M G, URIC, RENAL #### [facility] [address] [place] [address] Dr. Nacho Jeffery VLDL CALC 35.8 mg/dL Normal [facility] Comment on above: Performed By: #### M G, URIC, RENAL #### [facility] [address] [place] [address] Dr. Nacho Jeffery PROF 14(COMP METB)on 022 Albumin [Mass/Vol] 3.2 g/dL Critically low 3.4-5.0 [facility] Comment on above: Performed By: #### M Jamarcus, URIC, RENAL #### [facility] [address] [place] [address] Dr. Nacho Jeffery Albumin/Globulin [Mass ratio] 0.8 {ratio} Normal [facility] Comment on above: Performed By: #### M G, URIC, RENAL #### [facility] [address] [place] [address] Dr. Nacho Jeffery ALP [Catalytic activity/Vol] 109 U/L Normal 46-116 [facility] Comment on above: Performed By: #### M G, URIC, RENAL #### [facility] [address] [place] [address] Dr. Nacho Jeffery ALT [Catalytic activity/Vol] 38 U/L Normal 14-59 [facility] Comment on above: Performed By: #### M G, URIC, RENAL #### [facility] [address] [place] [address] Dr. Nacho Jeffery Anion gap [Moles/Vol] 13.7 mmol/L Normal [facility] Comment on above: Performed By: #### M G, URIC, RENAL #### [facility] [address] [place] [address] Dr. Nacho Jeffery AST [Catalytic activity/Vol] 27 U/L Normal 15-37 [facility] Comment on above: Performed By: #### M Jamarcus URIC, RENAL #### [facility] [address] [address] [address] Nacho Jeffery Bilirubin [Mass/Vol] 0.4 mg/dL Normal 0.2-1.0 [facility] Comment on above: Performed By: #### M Jamarcus, URIC, RENAL #### [facility] [address] [address] [address] Nacho Jeffery Calcium [Mass/Vol] 9.2 mg/dL Normal 8.5-10.1 [facility] Comment on above: Performed By: #### M Jamarcus URIC, RENAL #### [facility] [address] [place] [address] Dr. Nacho Jeffery Chloride [Moles/Vol] 105 mmol/L Normal 98-107 [facility] Comment on above: Performed By: #### M Jamarcus, URIC, RENAL #### [facility] [address] [place] [address] Dr. Nacho Jeffery CO2 [Moles/Vol] 29.5 mmol/L Normal 21.0-32.0 [facility] Comment on above: Performed By: #### M Jamarcus, URIC, RENAL #### [facility] [address] [place] [address] Dr. Nacho Jeffery Creatinine [Mass/Vol] 1.62 mg/dL Critically high 0.55-1.02 [facility] Comment on above: Performed By: #### M Jamarcus, URIC, RENAL #### [facility] [address] [place] [address] Dr. Nacho Jeffery EGFR-AF DUTCH 37 mL/min/1.73m2 Critically low >=60 [facility] Comment on above: Performed By: #### M Jamarcus, URIC, RENAL #### [facility] [address] [address] [address] Nacho Jeffery EGFR-NON AF DUTCH 31 mL/min/1.73m2 Critically low >=60 [facility] Comment on above: Performed By: #### M G, URIC, RENAL #### [facility] [address] [address] [address] Nacho Jeffery Globulin (S) [Mass/Vol] 3.8 g/dL Normal [facility] Comment on above: Performed By: #### M G, URIC, RENAL #### [facility] [address] [address] [address] Nacho Jeffery Glucose [Mass/Vol] 102 mg/dL Normal 74-106 [facility] Comment on above: Performed By: #### M G, URIC, RENAL #### [facility] [address] [place] [address] Dr. Nacho Jeffery Potassium [Moles/Vol] 4.2 mmol/L Normal 3.5-5.1 [facility] Comment on above: Performed By: #### M G, URIC, RENAL #### [facility] [address] [place] [address] Dr. Nacho Jeffery Protein [Mass/Vol] 7.0 g/dL Normal 6.4-8.2 [facility] Comment on above: Performed By: #### M G, URIC, RENAL #### [facility] [address] [place] [address] Dr. Nacho Jeffery Sodium [Moles/Vol] 144 mmol/L Normal 136-145 [facility] Comment on above: Performed By: #### M G, URIC, RENAL #### [facility] [address] [place] [address] Dr. Nacho Jeffery Urea nitrogen [Mass/Vol] 45.0 mg/dL Critically high 7.0-18.0 [facility] Comment on above: Performed By: #### M G, URIC, RENAL #### [facility] [address] [place] [address] Dr. Nacho Jeffery Urea nitrogen/Creatinine [Mass ratio] 27.8 mg/mg Normal [facility] Comment on above: Performed By: #### M G, URIC, RENAL #### [facility] [address] [place] [address] Dr. Nacho Jeffery OSMOLALITY URINEon 2 Osmolality, Urine 466 mOsmol/kg Normal [facility] Comment on above: Result Comment: 24 h r : 300 - 900 Random: 50 - 1400 After 12hr fluid restriction: >850 Performed By: #### M RENEA Ricketts, RENAL #### [facility] [address] [place], [place] [address] Dr. Nacho Jeffery PTH INTACTon 07-13-2022 PTH, Intact 84 pg/mL Critically high 15-65 [facility] Comment on above: Performed By: #### P THINT #### [facility] [address] [address] [address] Nacho Jeffery VIT D 25-OH LABCORPon 2021 Vitamin D, 25-Hydroxy 34.7 ng/mL Normal 30.0-100.0 [facility] Comment on above: Result Comment: Radha min D deficiency has been defined by the [place] of Medicine and an Endocrine Society practice guideline as a level of serum 25-OH vitamin D less than 20 ng/mL (1,2). The Endocrine Society went on to further define vitamin D insufficiency as a level between 21 and 29 ng/mL (2). 1. IOM ([place] of Medicine). 2010. Dietary reference intakes for calcium and D. [place]: The National Academies Press. 2. Magdiel MF, Kb NC, Evens PEPPER, et al. Evaluation, treatment, and prevention of vitamin D deficiency: an Endocrine Society clinical practice guideline. JCEM. 2010; 96(7):1911-30. Performed By: #### M RENEA Ricketts, RENAL #### [facility] [address] [address] [address] Nacho Jeffery HEMOGRAM AND PLATELon 2021 Hematocrit (Bld) [Volume fraction] 35.5 % Critically low 36.0-48.0 [facility] Comment on above: Performed By: #### M RENEA Ricketts RENAL #### [facility] [id number] Nacho Jeffery Hemoglobin (Bld) [Mass/Vol] 11.5 g/dL Critically low 12.0-16.0 [facility] Comment on above: Performed By: #### M RENEA Ricketts RENAL #### [facility] [address] [address] [address] Nacho Jeffery MCH (RBC) [Entitic mass] 30.6 pg Normal 26.7-34.0 [facility] Comment on above: Performed By: #### M G, URIC, RENAL #### [facility] [address] [place] [address] Dr. Nacho Jeffery MCHC (RBC) [Mass/Vol] 32.4 g/dL Normal 29.9-35.2 [facility] Comment on above: Performed By: #### M G, URIC, RENAL #### [facility] [address] [place] [address] Dr. Nacho Jeffery MCV (RBC) [Entitic vol] 94.4 fL Normal 81.0-99.0 [facility] Comment on above: Performed By: #### M G, URIC, RENAL #### [facility] [address] [place] [address] Dr. Nacho Jeffery PLT 192 103/ul Normal 150-450 [facility] Comment on above: Performed By: #### M G, URIC, RENAL #### [facility] [address] [place] [address] Dr. Nacho Jeffery RBC 3.76 106/ul Critically low 4.20-5.40 [facility] Comment on above: Performed By: #### M G, URIC, RENAL #### [facility] [address] [place] [address] Dr. Nacho Jeffery WBC 6.1 103/ul Normal 4.0-11.0 [facility] Comment on above: Performed By: #### M G, URIC, RENAL #### [facility] [address] [place] [address] Dr. Nacho Jeffery MAGNESIUMon 07-12-2022 Magnesium [Mass/Vol] 1.3 mg/dL Critically low 1.8-2.4 [facility] Comment on above: Performed By: #### U CHRISTOFER, MG, RENAL #### [facility] [address] [place] [address] Dr. Nacho Jeffery RENAL FUNCTION PANELon 07-12 Albumin [Mass/Vol] 3.3 g/dL Critically low 3.4-5.0 [facility] Comment on above: Performed By: #### U CHRISTOFER, MG, RENAL #### [facility] [address] [address] [address] Nacho Jeffery Calcium [Mass/Vol] 9.1 mg/dL Normal 8.5-10.1 [facility] Comment on above: Performed By: #### U CHRISTOFER, MG, RENAL #### [facility] [address] [address] [address] Nacho Jeffery Chloride [Moles/Vol] 104 mmol/L Normal 98-107 [facility] Comment on above: Performed By: #### U CHRISTOFER, MG, RENAL #### [facility] [address] [place] [address] Dr. Nacho Jeffery CO2 [Moles/Vol] 31.7 mmol/L Normal 21.0-32.0 [facility] Comment on above: Performed By: #### U CHRISTOFER, MG, RENAL #### [facility] [address] [place] [address] Dr. Nacho Jeffery Creatinine [Mass/Vol] 1.52 mg/dL Critically high 0.55-1.02 [facility] Comment on above: Performed By: #### U CHRISTOFER, MG, RENAL #### [facility] [address] [place] [address] Dr. Nacho Jeffery EGFR-AF DUTCH 40 mL/min/1.73m2 Critically low >=60 [facility] Comment on above: Performed By: #### U CHRISTOFER, MG, RENAL #### [facility] [address] [place] [address] Dr. Nacho Jeffery EGFR-NON AF DUTCH 33 mL/min/1.73m2 Critically low >=60 [facility] Comment on above: Performed By: #### U CHRISTOFER, MG, RENAL #### [facility] [address] [address] [address] Nacho Jeffery Glucose [Mass/Vol] 221 mg/dL Critically high 74-106 [facility] Comment on above: Performed By: #### U CHRISTOFER, MG, RENAL #### [facility] [address] [address] [address] Nacho Jeffery Phosphate [Mass/Vol] 3.8 mg/dL Normal 2.6-4.7 [facility] Comment on above: Performed By: #### U CHRISTOFER, MG, RENAL #### [facility] [address] [place] [address] Dr. Nacho Jeffery Potassium [Moles/Vol] 4.1 mmol/L Normal 3.5-5.1 [facility] Comment on above: Performed By: #### U CHRISTOFER, MG, RENAL #### [facility] [address] [place] [address] Dr. Nacho Jeffery Sodium [Moles/Vol] 143 mmol/L Normal 136-145 [facility] Comment on above: Performed By: #### U CHRISTOFER, MG, RENAL #### [facility] [address] [place] [address] Dr. Nacho Jeffery Urea nitrogen [Mass/Vol] 45.0 mg/dL Critically high 7.0-18.0 [facility] Comment on above: Performed By: #### U CHRISTOFER, MG, RENAL #### [facility] [address] [place] [address] Dr. Nacho Jeffery UA RANDOM W/MICROSCOPICon BACTERIA NONE SEEN Normal NONE SEEN [facility] Comment on above: Performed By: #### M G, URIC, RENAL #### [facility] [address] [place] [address] Dr. Nacho Jeffery Bilirubin Ql (U) Negative Normal NEGATIVE [facility] Comment on above: Performed By: #### M G, URIC, RENAL #### [facility] [address] [place] [address] Dr. Nacho Jeffery CAST NONE SEEN Normal NONE SEEN [facility] Comment on above: Performed By: #### M G, URIC, RENAL #### [facility] [address] [place] [address] Dr. Nacho Jeffery Clarity (U) CLEAR Normal CLEAR [facility] Comment on above: Performed By: #### M G, URIC, RENAL #### [facility] [address] [address] [address] Nacho Jeffery Color (U) LT. YELLOW Normal YELLOW [facility] Comment on above: Performed By: #### M G, URIC, RENAL #### [facility] [address] [address] [address] Nacho Jeffery Crystals LM Nom (Urine sed) NONE SEEN Normal NONE SEEN [facility] Comment on above: Performed By: #### M G, URIC, RENAL #### [facility] [address] [address] [address] Nacho Jeffery Epithelial cells LM Ql (Urine sed) FEW Abnormal NONE SEEN /RARE [facility] Comment on above: Performed By: #### M G, URIC, RENAL #### [facility] [address] [place] [address] Dr. Nacho Jeffery Glucose Ql (U) Negative Normal NEGATIVE [facility] Comment on above: Performed By: #### M G, URIC, RENAL #### [facility] [address] [place] [address] Dr. Nacho Jeffery Hemoglobin Ql (U) Negative Normal NEGATIVE [facility] Comment on above: Performed By: #### M G, URIC, RENAL #### [facility] [address] [address] [address] Nacho Jeffery Ketones Ql (U) Negative Normal NEGATIVE [facility] Comment on above: Performed By: #### M G, URIC, RENAL #### [facility] [address] [address] [address] Nacho Jeffery LEUKOCYTES TRACE Abnormal NEGATIVE [facility] Comment on above: Performed By: #### M G, URIC, RENAL #### [facility] [address] [address] [address] Nacho Jeffery MUCOUS NONE SEEN Normal NONE SEEN [facility] Comment on above: Performed By: #### M G, URIC, RENAL #### [facility] [address] [place] [address] Dr. Nacho Jeffery Nitrite Ql (U) Negative Normal NEGATIVE [facility] Comment on above: Performed By: #### M G, URIC, RENAL #### [facility] [address] [place] [address] Dr. Nacho Jeffery pH (U) 6.0 [pH] Normal 5-9 [facility] Comment on above: Performed By: #### M G, URIC, RENAL #### [facility] [address] [place] [address] Dr. Nacho Jeffery RBC NONE SEEN Abnormal 0-2 [facility] Comment on above: Performed By: #### M G, URIC, RENAL #### [facility] [address] [address] [address] Nacho Jeffery SPEC GRAVITY 1.015 Normal 1.005-<=1.025 [facility] Comment on above: Performed By: #### M G, URIC, RENAL #### [facility] [address] [place] [address] Dr. Nacho Jeffery UA PROTEIN Negative Normal NEGATIVE/ TRACE [facility] Comment on above: Performed By: #### M G, URIC, RENAL #### [facility] [address] [place] [address] Dr. Nacho Jeffery Urobilinogen Qn (U) 0.2 {Zuleyka'U}/dL Normal 0.2 - 1. 0 [facility] Comment on above: Performed By: #### M G, URIC, RENAL #### [facility] [address] [place] [address] Dr. Nacho Jeffery WBC 2-5 Abnormal NONE SEEN [facility] Comment on above: Performed By: #### M G, URIC, RENAL #### [facility] [address] [place] [address] Dr. Nacho Jeffery URIC ACID SERUMon 07-12-2022 Urate [Mass/Vol] 7.9 mg/dL Critically high 2.6-6.0 [facility] Comment on above: Performed By: #### U CHRISTOFER, MG, RENAL #### [facility] [address] [place] [address] Dr. Nacho Jeffery URINE T PROTEIN CREAT RATIOo n 07-12-2022 Protein (U) [Mass/Vol] 17.5 mg/dL Critically high <=12.0 [facility] Comment on above: Performed By: #### M G, URIC, RENAL #### [facility] [address] [address] [address] Nacho Jeffery UR PROT CREAT RAT 0.29 Normal [facility] Comment on above: Performed By: #### M G, URIC, RENAL #### [facility] [address] [place], [place] [address] Dr. Nacho Jeffery URINE CREAT 60.37 mg/dL Normal 20.00-300.00 [facility] Comment on above: Performed By: #### M G, URIC, RENAL #### [facility] [address] [address] [address] Nacho Jeffery ALBUMIN, RANDOM URINE W/CREA TININEon 05-11-2022 ALBUMIN, URINE 0.5 mg/dL Normal See Note: [facility] Comment on above: Result Comment: Refe rence Range: Reference Range Not established Performed By: #### 4 96, 7600, 6517, 89102 #### [facility] [address], [address] [place] [address] [employer]ing Officer: Mauricio Kern MD ALBUMIN/CREATININE RATIO, RANDOM URINE [...] Performed By: #### 4 96, 7600, 6517, 80924 #### [facility] [address], [address] [place] [address] [employer]ing Officer: Mauricio Kern MD Creatinine (U) [Mass/Vol] 74 mg/dL Normal 20-275 [facility] Comment on above: Performed By: #### 4 96, 7600, 6517, 45120 #### [facility] [address], [address] [place] [address] [employer]ing Officer: Mauricio Kern MD BASIC METABOLIC PANELon 04-14 GLUCOSE Normal [facility] Comment on above: Result Comment: TEST NOT PERFORMED No specimen received. Performed By: #### 4 96, 7600, 6517, 58961 #### [facility] of [address], [address] [place] [address] [employer]ing Officer: Mauricio Kern MD HEMOGLOBIN A1con 05-11-2022 HEMOGLOBIN A1c Normal [facility] Comment on above: Result Comment: TEST NOT PERFORMED No specimen received. Performed By: #### 4 96, 7600, 6517, 34950 #### [facility] of [address], [address] [place] [address] [employer]ing Officer: Muaricio Kern MD LIPID PANEL, STANDARDon 04-14 CHOL/HDLC RATIO Normal [facility] Comment on above: Result Comment: TEST NOT PERFORMED No specimen received. Performed By: #### 4 96, 7600, 6517, 78249 #### [facility] of [address], [address] [place] [address] [employer]ing Officer: Mauricio Kern MD CHOLESTEROL, TOTAL Normal [facility] Comment on above: Result Comment: TEST NOT PERFORMED No specimen received. Performed By: #### 4 96, 7600, 6517, 67339 #### [facility] of [address], [address] [place] [address] [employer]ing Officer: Mauricio Kren MD HDL CHOLESTEROL Normal [facility] Comment on above: Result Comment: TEST NOT PERFORMED No specimen received. Performed By: #### 4 96, 7600, 6517, 43208 #### [facility] of [address], [address] [place] [address] [employer]ing Officer: Mauricio Kern MD LDL-CHOLESTEROL Normal [facility] Comment on above: Result Comment: TEST NOT PERFORMED No specimen received. Performed By: #### 4 96, 7600, 6517, 76110 #### [facility] of [address], [address] [place] [address] [employer]ing Officer: Mauricio Kern MD NON HDL CHOLESTEROL Normal [facility] Comment on above: Result Comment: TEST NOT PERFORMED No specimen received. Performed By: #### 4 96, 7600, 6517, 84844 #### [facility] [address] [address] [employer]ing Officer: Mauricio Kern MD TRIGLYCERIDES Normal [facility] Comment on above: Result Comment: TEST NOT PERFORMED No specimen received. Performed By: #### 4 96, 7600, 6517, 74903 #### [facility] [address] [place] [address] [employer]ing Officer: Mauricio Kern MD BASIC METABOLIC PANELon 04-13-2021 Calcium [Mass/Vol] 9.1 mg/dL Normal 8.6-10.4 [facility] Comment on above: Performed By: #### 1 0165, 496, 7600 #### [facility] [address] [place] [address] [employer]ing Officer: Mauricio Kern MD Chloride [Moles/Vol] 105 mmol/L Normal 98-110 [facility] Comment on above: Performed By: #### 1 0165, 496, 7600 #### [facility] [address] [place] [address] [employer]ing Officer: Mauricio Kern MD CO2 [Moles/Vol] 25 mmol/L Normal 20-32 [facility] Comment on above: Performed By: #### 1 0165, 496, 7600 #### [facility] [address] [place] [address] [employer]ing Officer: Mauricio Kern MD Creatinine [Mass/Vol] 1.73 mg/dL High 0.60-0.93 [facility] Comment on above: Result Comment: For patients >49 years of age, the reference limit for Creatinine is approximately 13% higher for people identified as -[place]. Performed By: #### 1 0165, 496, 7600 #### [facility] [place] [address] [employer]ing Officer: Mauricio Kern MD eGFR NON-AFR. DUTCH 28 mL/min/1.73m2 Low > OR = 60 [facility] Comment on above: Performed By: #### 1 0165, 496, 7600 #### [facility] [address] [place] [address] [employer]ing Officer: Mauricio Kern MD GFR/1.73 sq M.predicted among blacks MDRD (S/P/Bld) [Vol rate/Area] 32 mL/min/{1.73_m2} Low > OR = 60 [facility] Comment on above: Performed By: #### 1 0165, 496, 7600 #### [facility] [address] [place] [address] [employer]ing Officer: Mauricio Kern MD Glucose [Mass/Vol] 137 mg/dL High 65-99 [facility] Comment on above: Result Comment: Fasting reference interval For someone without known diabetes, a glucose value >125 mg/dL indicates that they may have diabetes and this should be confirmed with a follow-up test. Performed By: #### 1 0165, 496, 7600 #### [facility] [place] [address] [employer]ing Officer: Mauricio Kern MD Potassium [Moles/Vol] 4.6 mmol/L Normal 3.5-5.3 [facility] Comment on above: Performed By: #### 1 0165, 496, 7600 #### [facility] [place] [address] [employer]ing Officer: Mauricio Kern MD Sodium [Moles/Vol] 142 mmol/L Normal 135-146 [facility] Comment on above: Performed By: #### 1 0165, 496, 7600 #### [facility] [place] [address] [employer]ing Officer: Mauricio Kern MD Urea nitrogen [Mass/Vol] 65 mg/dL High 7-25 [facility] Comment on above: Performed By: #### 1 0165, 496, 7600 #### [facility] [address] [place] [address] [employer]: Mauricio Kern MD Urea nitrogen/Creatinine [Mass ratio] 38 mg/mg High 05-03 [facility] Comment on above: Performed By: #### 1 0165, 496, 7600 #### [facility] [address], [address] [place] [address] [employer]ing Officer: Mauricio Kern MD HEMOGLOBIN A1con 05-04-2022 HEMOGLOBIN [...] 1 0165, 496, 7600 #### [facility] [address], [address] [place] [address] [employer]ing Officer: Mauricio Kern MD LIPID PANEL, STANDARDon 04-13 Cholesterol [Mass/Vol] 163 mg/dL Normal <200 [facility] Comment on above: Order Comment: FASTI NG:YES PATIENT UNABLE TO VOID; ADVISED TO RETURN FOR COLLECTION. FASTING: YES Performed By: #### 1 0165, 496, 7600 #### [facility] [address], [address] [place] [address] [employer]ing Officer: Mauricio Kern MD Cholesterol in HDL [Mass/Vol] 51 mg/dL Normal > OR = 50 [facility] Comment on above: Order Comment: FASTI NG:YES PATIENT UNABLE TO VOID; ADVISED TO RETURN FOR COLLECTION. FASTING: YES Performed By: #### 1 0165, 496, 7600 #### [facility] [address], [address] [place] [address] [employer]ing Officer: Mauricio Kern MD Cholesterol in LDL [Mass/Vol] [...] LDL-C. Sean SS et al. SHRUTHI. 2013;310(19): 5420-1507 (http://education.LifeBook/faq/BQF658) Performed By: #### 1 0165, 49, 6080 #### [facility] [address], [address] [place] [address] [employer]ing Officer: Mauricio Kern MD Cholesterol.total/C holesterol in HDL [Mass ratio] 3.2 {ratio} Normal <5.0 [facility] Comment on above: Order Comment: FASTI NG:YES PATIENT UNABLE TO VOID; ADVISED TO RETURN FOR COLLECTION. FASTING: YES Performed By: #### 1 0163, 691, 7580 #### [facility] [address], [address] [place] [address] [employer]ing Officer: Mauricio Kern MD NON HDL CHOLESTEROL 112 [...] a therapeutic option. Performed By: #### 1 0161, 922, 3340 #### [facility] [address], [address] [place] [address] [employer]ing Officer: Mauricio Kern MD Triglyceride [Mass/Vol] 181 mg/dL High <150 [facility] Comment on above: Order Comment: FASTI NG:YES PATIENT UNABLE TO VOID; ADVISED TO RETURN FOR COLLECTION. FASTING: YES Performed By: #### 1 0165, 496, 9430 #### [facility] [address] [facility], [address] [place] [address] [employer]ing Officer: Mauricio Kern MD PTH INTACTon 03-31-2022 PTH, Intact 111 pg/mL Critically high 15-65 [facility] Comment on above: Performed By: #### M G, URIC, RENAL #### [facility] [address] [address] [address] Nacho Jeffery FERRITINon 03-30-2022 Ferritin [Mass/Vol] 479.0 ng/mL Critically high 8.0-252.0 [facility] Comment on above: Performed By: #### M G, URIC, RENAL #### [facility] [address] [place] [address] Dr. Nacho Jeffery HEMOGRAM AND PLATELon 2021 Hematocrit (Bld) [Volume fraction] 38.1 % Normal 36.0-48.0 [facility] Comment on above: Performed By: #### M G, URIC, RENAL #### [facility] [address] [address] [address] Nacho Jeffery Hemoglobin (Bld) [Mass/Vol] 12.9 g/dL Normal 12.0-16.0 [facility] Comment on above: Performed By: #### M G, URIC, RENAL #### [facility] [address] [address] [address] Nacho Jeffery MCH (RBC) [Entitic mass] 32.8 pg Normal 26.7-34.0 [facility] Comment on above: Performed By: #### M G, URIC, RENAL #### [facility] [address] [address] [address] Nacho Jeffery MCHC (RBC) [Mass/Vol] 33.9 g/dL Normal 29.9-35.2 [facility] Comment on above: Performed By: #### M G, URIC, RENAL #### [facility] [address] [address] [address] Nacho Jeffery MCV (RBC) [Entitic vol] 96.9 fL Normal 81.0-99.0 [facility] Comment on above: Performed By: #### M G, URIC, RENAL #### [facility] [address] [place] [address] Dr. Nacho Jeffery PLT 191 103/ul Normal 150-450 [facility] Comment on above: Performed By: #### M G, URIC, RENAL #### [facility] [address] [place] [address] Dr. Nacho Jeffery RBC 3.93 106/ul Critically low 4.20-5.40 [facility] Comment on above: Performed By: #### M G, URIC, RENAL #### [facility] [address] [place] [address] Dr. Nacho Jeffery WBC 7.2 103/ul Normal 4.0-11.0 [facility] Comment on above: Performed By: #### M G, URIC, RENAL #### [facility] [address] [place] [address] Dr. Nacho Jeffery IRON AND TIBCon 03-30-2022 % SATURATION 21.6 % Normal [facility] Comment on above: Performed By: #### M G, URIC, RENAL #### [facility] [address] [place] [address] Dr. Nacho Jeffery Iron [Mass/Vol] 63.0 ug/dL Normal 50.0-170.0 [facility] Comment on above: Performed By: #### M G, URIC, RENAL #### [facility] [address] [place] [address] Dr. Nacho Jeffery TIBC DIRECT 292.0 ug/dL Normal 250.0-450.0 [facility] Comment on above: Performed By: #### M G, URIC, RENAL #### [facility] [address] [place] [address] Dr. Nacho Jeffery MAGNESIUMon 03-30-2022 Magnesium [Mass/Vol] 1.7 mg/dL Critically low 1.8-2.4 [facility] Comment on above: Performed By: #### M G, URIC, RENAL #### [facility] [address] [address] [address] Nacho Jeffery RENAL FUNCTION PANELon 03-30 Albumin [Mass/Vol] 3.4 g/dL Normal 3.4-5.0 [facility] Comment on above: Performed By: #### M G, URIC, RENAL #### [facility] [address] [address] [address] Nacho Jeffery Calcium [Mass/Vol] 9.3 mg/dL Normal 8.5-10.1 [facility] Comment on above: Performed By: #### M G, URIC, RENAL #### [facility] [address] [address] [address] Nacho Jeffery Chloride [Moles/Vol] 102 mmol/L Normal 98-107 [facility] Comment on above: Performed By: #### M G, URIC, RENAL #### [facility] [address] [place] [address] Dr. Nacho Jeffery CO2 [Moles/Vol] 31.7 mmol/L Normal 21.0-32.0 [facility] Comment on above: Performed By: #### M G, URIC, RENAL #### [facility] [address] [address] [address] Nacho Jeffery Creatinine [Mass/Vol] 2.05 mg/dL Critically high 0.55-1.02 [facility] Comment on above: Performed By: #### M G, URIC, RENAL #### [facility] [address] [address] [address] Nacho Jeffery EGFR-AF DUTCH 28 mL/min/1.73m2 Critically low >=60 [facility] Comment on above: Performed By: #### M G, URIC, RENAL #### [facility] [address] [address] [address] Nacho Jeffery EGFR-NON AF DUTCH 23 mL/min/1.73m2 Critically low >=60 [facility] Comment on above: Performed By: #### M G, URIC, RENAL #### [facility] [address] [address] [address] Nacho Jeffery Glucose [Mass/Vol] 194 mg/dL Critically high 74-106 [facility] Comment on above: Performed By: #### M G, URIC, RENAL #### [facility] [address] [address] [address] Nacho Jeffery Phosphate [Mass/Vol] 3.2 mg/dL Normal 2.6-4.7 [facility] Comment on above: Performed By: #### M G, URIC, RENAL #### [facility] [address] [place] [address] Dr. Nacho Jeffery Potassium [Moles/Vol] 4.6 mmol/L Normal 3.5-5.1 [facility] Comment on above: Performed By: #### M G, URIC, RENAL #### [facility] [address] [place] [address] Dr. Nacho Jeffery Sodium [Moles/Vol] 141 mmol/L Normal 136-145 [facility] Comment on above: Performed By: #### M G, URIC, RENAL #### [facility] [address] [place] [address] Dr. Nacho Jeffery Urea nitrogen [Mass/Vol] 64.0 mg/dL Critically high 7.0-18.0 [facility] Comment on above: Performed By: #### M G, URIC, RENAL #### [facility] [address] [place] [address] Dr. Nacho Jeffery UA RANDOM W/MICROSCOPICon BACTERIA NONE SEEN Normal NONE SEEN [facility] Comment on above: Performed By: #### M G, URIC, RENAL #### [facility] [address] [place] [address] Dr. Nacho Jeffery Bilirubin Ql (U) Negative Normal NEGATIVE [facility] Comment on above: Performed By: #### M G, URIC, RENAL #### [facility] [address] [place] [address] Dr. Nacho Jeffery CAST NONE SEEN Normal NONE SEEN [facility] Comment on above: Performed By: #### M G, URIC, RENAL #### [facility] [address] [place] [address] Dr. Nacho Jeffery Clarity (U) CLEAR Normal CLEAR [facility] Comment on above: Performed By: #### M G, URIC, RENAL #### [facility] [address] [address] [address] Nacho Jeffery Color (U) LT. YELLOW Normal YELLOW [facility] Comment on above: Performed By: #### M G, URIC, RENAL #### [facility] [address] [address] [address] Nacho Jeffery Crystals LM Nom (Urine sed) NONE SEEN Normal NONE SEEN [facility] Comment on above: Performed By: #### M G, URIC, RENAL #### [facility] [address] [address] [address] Nacho Jeffery Epithelial cells LM Ql (Urine sed) FEW Abnormal NONE SEEN /RARE [facility] Comment on above: Performed By: #### M G, URIC, RENAL #### [facility] [address] [place] [address] Dr. Nacho Jeffery Glucose Ql (U) Negative Normal NEGATIVE [facility] Comment on above: Performed By: #### M G, URIC, RENAL #### [facility] [address] [address] [address] Nacho Jeffeyr Hemoglobin Ql (U) Negative Normal NEGATIVE [facility] Comment on above: Performed By: #### M G, URIC, RENAL #### [facility] [address] [address] [address] Nacoh Jeffery Ketones Ql (U) Negative Normal NEGATIVE [facility] Comment on above: Performed By: #### M G, URIC, RENAL #### [facility] [address] [address] [address] Nacho Jeffery LEUKOCYTES SMALL Abnormal NEGATIVE [facility] Comment on above: Performed By: #### M G, URIC, RENAL #### [facility] [address] [address] [address] Nacho Jeffery MUCOUS NONE SEEN Normal NONE SEEN [facility] Comment on above: Performed By: #### M G, URIC, RENAL #### [facility] [address] [address] [address] Nacho Jeffery Nitrite Ql (U) Negative Normal NEGATIVE [facility] Comment on above: Performed By: #### M G, URIC, RENAL #### [facility] [address] [address] [address] Nacho Jeffery pH (U) 5.5 [pH] Normal 5-9 [facility] Comment on above: Performed By: #### M G, URIC, RENAL #### [facility] [address] [address] [address] Nacho Jeffery RBC 0-2 Normal 0-2 [facility] Comment on above: Performed By: #### M G, URIC, RENAL #### [facility] [address] [address] [address] Nacho Jeffery SPEC GRAVITY 1.015 Normal 1.005-<=1.025 [facility] Comment on above: Performed By: #### M G, URIC, RENAL #### [facility] [address] [address] [address] Nacho Jeffery UA PROTEIN Negative Normal NEGATIVE/ TRACE [facility] Comment on above: Performed By: #### M G, URIC, RENAL #### [facility] [address] [address] [address] Nacho Jeffery Urobilinogen Qn (U) 0.2 {Zuleyka'U}/dL Normal 0.2 - 1. 0 [facility] Comment on above: Performed By: #### M G, URIC, RENAL #### [facility] [address] [address] [address] Nacho Jeffery WBC 5-10 Abnormal NONE SEEN [facility] Comment on above: Performed By: #### M G, URIC, RENAL #### [facility] [address] [address] [address] Nacho Jeffery URIC ACID SERUMon 03-30-2022 Urate [Mass/Vol] 7.0 mg/dL Critically high 2.6-6.0 [facility] Comment on above: Performed By: #### M G, URIC, RENAL #### [facility] [address] [address] [address] Nacho Jeffery URINE T PROTEIN CREAT RATIOo n 03-30-2022 Protein (U) [Mass/Vol] 7.1 mg/dL Normal <=12.0 [facility] Comment on above: Performed By: #### U RTPCR #### [facility] [address] [address] [address] Nacho Jeffery UR PROT CREAT RAT 0.06 Normal [facility] Comment on above: Performed By: #### U RTPCR #### [facility] [address] [address] [address] Nacho Jeffery URINE CREAT 113.23 mg/dL Normal 20.00-300.00 [facility] Comment on above: Performed By: #### U RTPCR #### [facility] [address] [place] [address] Dr. Nacho Jeffery VITAMIN D 25 OHon 03-30-2022 VIT D 25-OH 57.4 ng/mL Normal [facility] Comment on above: Performed By: #### M G, URIC, RENAL #### [facility] [address] [place] [address] Dr. Nacho Jeffery VIT D RANGES SEE BELOW Normal [facility] Comment on above: Result Comment: <20 ng/mL Vit D deficient 20 - <30 ng/mL Vit D insufficient 30 - 100 ng/mL Vit D sufficient >100 ng/mL Potential Toxicity Performed By: #### M G, URIC, RENAL #### [facility] [address] [place] [address] Dr. Nacho Jeffery COMPREHENSIVE METABOLIC PANE Jared 08-30-2021 Albumin [Mass/Vol] 3.7 g/dL Normal 3.6-5.1 [facility] Comment on above: Performed By: #### 1 0231, 7600 #### [facility] [address], [address] [place], [place] [id number] [employer] Commanding Officer: Mauricio Kern MD Albumin/Globulin [Mass ratio] 1.4 {ratio} Normal 1.0-2.5 [facility] Comment on above: Performed By: #### 1 0231, 7600 #### [facility] [address], [address] [place] [address] [place] [address] [employer]ing Officer: Mauricio Kern MD ALP [Catalytic activity/Vol] 98 U/L Normal 37-153 [facility] Comment on above: Performed By: #### 1 0231, 7600 #### [facility] of [address] [address] [employer] Commanding Officer: Mauricio Kern MD ALT [Catalytic activity/Vol] 23 U/L Normal 6-29 [facility] Comment on above: Performed By: #### 1 0231, 7600 #### [facility] of [address], [address] [place] [address] [employer] Commanding Officer: Mauricio Kern MD AST [Catalytic activity/Vol] 22 U/L Normal 10-35 [facility] Comment on above: Performed By: #### 1 0231, 7600 #### [facility] of [address] [address] [employer]ing Officer: Mauricio Kern MD Bilirubin [Mass/Vol] 0.4 mg/dL Normal 0.2-1.2 [facility] Comment on above: Performed By: #### 1 023, 7600 #### [facility] of [address] [address] [employer] Commanding Officer: Mauricio Kern MD Calcium [Mass/Vol] 9.2 mg/dL Normal 8.6-10.4 [facility] Comment on above: Performed By: #### 1 0231, 7600 #### [facility] [address] [address] [employer] Commanding Officer: Mauricio Kern MD Chloride [Moles/Vol] 103 mmol/L Normal 98-110 [facility] Comment on above: Performed By: #### 1 0231, 7600 #### [facility] of [address] [address] [employer]ing Officer: Mauricio Kern MD CO2 [Moles/Vol] 28 mmol/L Normal 20-32 [facility] Comment on above: Performed By: #### 1 0231, 7600 #### [facility] of [place] [address] [place] [address] [employer] Commanding Officer: Mauricio Kern MD Creatinine [Mass/Vol] 2.22 mg/dL High 0.60-0.93 [facility] Comment on above: Result Comment: For patients >49 years of age, the reference limit for Creatinine is approximately 13% higher for people identified as -Gibraltarian. Performed By: #### 1 023, 7600 #### [facility] [address] [address] [employer]ing Officer: Mauricio Kern MD eGFR NON-AFR. DUTCH 21 mL/min/1.73m2 Low > OR = 60 [facility] Comment on above: Performed By: #### 1 023, 7600 #### [facility] [address] [address] [employer] Commanding Officer: Mauricio Kern MD GFR/1.73 sq M.predicted among blacks MDRD (S/P/Bld) [Vol rate/Area] 24 mL/min/{1.73_m2} Low > OR = 60 [facility] Comment on above: Performed By: #### 1 023, 7600 #### [facility] [address] [address] [employer]ing Officer: Mauricio Kern MD Globulin (S) [Mass/Vol] 2.7 g/dL Normal 1.9-3.7 [facility] Comment on above: Performed By: #### 1 023, 7600 #### [facility] [address] [address] [employer]ing Officer: Mauricio Kern MD Glucose [Mass/Vol] 107 mg/dL High 65-99 [facility] Comment on above: Result Comment: Fasting reference interval For someone without known diabetes, a glucose value between 100 and 125 mg/dL is consistent with prediabetes and should be confirmed with a follow-up test. Performed By: #### 1 023, 7600 #### [facility] [address] [address] [employer]ing Officer: Mauricio Kern MD Potassium [Moles/Vol] 4.7 mmol/L Normal 3.5-5.3 [facility] Comment on above: Performed By: #### 1 0231, 7600 #### [facility] of [address], [address] [place] [address] [employer]ing Officer: Mauricio Kern MD Protein [Mass/Vol] 6.4 g/dL Normal 6.1-8.1 [facility] Comment on above: Performed By: #### 1 0231, 7600 #### [facility] of [address], [address] [place] [address] [employer]ing Officer: Mauricio Kern MD Sodium [Moles/Vol] 141 mmol/L Normal 135-146 [facility] Comment on above: Performed By: #### 1 0231, 7600 #### [facility] of [address], [address] [place] [address] [employer]ing Officer: Mauricio Kern MD Urea nitrogen [Mass/Vol] 69 mg/dL High 7-25 [facility] Comment on above: Performed By: #### 1 023, 7600 #### [facility] of [address], [address] [place] [address] [employer]ing Officer: Mauricio Kern MD Urea nitrogen/Creatinine [Mass ratio] 31 mg/mg High 6-22 [facility] Comment on above: Performed By: #### 1 0231, 7600 #### [facility] of [address] [address] [employer] Commanding Officer: Mauricio Kern MD LIPID PANEL, [facility] [place] 08-12 Cholesterol [Mass/Vol] 142 mg/dL Normal <200 [facility] Comment on above: Order Comment: FASTI NG:YES FASTING: YES Performed By: #### 1 0231, 7600 #### [facility] of [address], [address] [place] [address] [employer]ing Officer: Mauricio Kern MD Cholesterol in HDL [Mass/Vol] 47 mg/dL Low > OR = 50 [facility] Comment on above: Order Comment: FASTI NG:YES FASTING: YES Performed By: #### 1 023, 0 #### [facility] [address], [address] [place] [address] [employer]ing Officer: Mauricio Kern MD Cholesterol in LDL [Mass/Vol] [...] of LDL-C. Sean SS et al. SHRUTHI. 2013;310(23): 3724-6921 (http://education.LifeBook/faq/CWV525) Performed By: #### 1 023, 0 #### [facility] [address], [address] [place] [address] [employer]ing Officer: Mauricio Kern MD Cholesterol.total/C holesterol in HDL [Mass ratio] 3.0 {ratio} Normal <5.0 [facility] Comment on above: Order Comment: FASTI NG:YES FASTING: YES Performed By: #### 1 023, 7600 #### [facility] [address], [address] [place] [address] [employer]ing Officer: Mauricio Kern MD NON HDL CHOLESTEROL 95 mg/dL (calc) Normal <130 [facility] Comment on above: Order Comment: FASTI NG:YES FASTING: YES Result Comment: For patients with diabetes plus 1 major ASCVD risk factor, treating to a non-HDL-C goal of <100 mg/dL (LDL-C of <70 mg/dL) is considered a therapeutic option. Performed By: #### 1 0231, 7600 #### [facility] [address], [address] [place] [address] [employer]ing Officer: Mauricio Kern MD Triglyceride [Mass/Vol] 188 mg/dL High <150 [facility] Comment on above: Order Comment: FASTI NG:YES FASTING: YES Performed By: #### 1 0231, 7600 #### [facility] [address], [address] [place] [address] [employer] Commanding Officer: Mauricio Kern MD BASIC METABOLIC PANELon 03-12 Calcium [Mass/Vol] 10.0 mg/dL Normal 8.6-10.3 [facility] Comment on above: Performed By: #### 0 0071 #### [facility] [address] [place] [address], [place] Chloride [Moles/Vol] 101 mmol/L Normal 98-107 [facility] Comment on above: Performed By: #### 0 0071 #### [facility] [address] [place] [address], [place] CO2 [Moles/Vol] 28 mmol/L Normal 21-31 [facility] Comment on above: Performed By: #### 0 0071 #### [facility] [address] [place] [address], [place] Creatinine [Mass/Vol] 1.96 mg/dL High 0.60-1.20 [facility] Comment on above: Performed By: #### 0 0071 #### [facility] [address] [place] [address], [place] eGFR- 30 ml/min/1.73sq m Abnormal >60 [facility] Comment on above: Result Comment: Calc ulation may not be valid for patients over 70 years Performed By: #### 0 0071 #### [facility] [address] [place] [address], [place] eGFR- non- 24 ml/min/1.73sq m Abnormal >60 [facility] Comment on above: Result Comment: Calc ulation may not be valid for patients over 70 years Performed By: #### 0 0071 #### [facility] [address] [place] [address], [place] Glucose [Mass/Vol] 171 mg/dL High 70-100 [facility] Comment on above: Performed By: #### 0 0071 #### [facility] [address] [place] [address], [facility] Potassium [Moles/Vol] 3.9 mmol/L Normal 3.5-5.[address] [facility] Comment on above: Performed By: #### 0 0071 #### [facility] [address] [place] [address], [facility] Sodium [Moles/Vol] 139 mmol/L Normal 136-145 [facility] Comment on above: Performed By: #### 0 0071 #### [facility] [address] [facility] [address], [facility] Urea nitrogen [Mass/Vol] 66 mg/dL High 7-[address] [facility] Comment on above: Performed By: #### 0 0071 #### [facility] [address] [facility] [place], [place] [id number] [place] [address] Cardiovascular Lab Reporton 03-30-2021 Cardiovascular Lab Report [facility] Patient Name: Adore Wolff [facility] MR #: [id number] Physician: Moe Parham, Department of M.D. Medicine Service Date: 03/30/2021 Division of Birthdate: 1940 Cardiology Room #: Adult Cardiovascular Services [facility] [address] [address] Cardiovascular Laboratory Report FINAL IMPRESSIONS: 1. Moderate [...] the left radial artery was obtained. A 6-Cook Islander glide sheath was inserted without difficulty. Bilateral selective coronary angiography was performed using JL4 and a 4-[place]er 3DRC catheter. After reviewing the images and [...] Parham M.D. Date Trans: 03/30/2021 03:19 P/mmo [id number] cc: Fernie Clark M.D. [address]azquez, [address] [place] [address] [facility] Vital Signs Date Time Vital Sign Value Performing Clinician Facility 01-09-2025 22:22-0500 Diastolic blood pressure 87 mm[Hg] Fernie Furlong DO Work Phone: [facility] [employer] 01-09-2025 22:22-0500 Heart rate 53 /min [facility] 01-09-2025 22:22-0500 Respiratory rate 18 /min Fernie Furlong DO Work Phone: [facility] [employer] [facility] 01-09-2025 22:22-0500 SaO2% (BldA) [Mass fraction] 98 % Fernie Furlong DO Work Phone: [facility] 01-09-2025 22:22-0500 Systolic blood pressure 169 mm[Hg] Fernie Furlong DO Work Phone: [facility] 12-26-2024 09:33-0500 Body temperature 97.7 [degF] Fernie Furlong DO [facility] 12-26-2024 09:33-0500 Diastolic blood pressure 78 mm[Hg] Fernie Furlong DO Work Phone: [facility] [employer] 12-26-2024 09:33-0500 Heart rate 64 /min Fern[facility]long [facility] 12-26-2024 09:33-0500 Respiratory rate 18 /min Fernie Furlong DO Work Phone: [facility] 12-26-2024 09:33-0500 SaO2% (BldA) [Mass fraction] 98 % Fernie Furlong DO Work Phone: [facility] 12-26-2024 09:33-0500 Systolic blood pressure 178 mm[Hg] Fernie Furlong DO Work Phone: [facility] 12-19-2024 11:12-0500 Body mass index (BMI) [Ratio] 43.27 kg/m2 Fernie Furlong DO Work Phone: [facility] 12-19-2024 11:12-0500 Body temperature 97.7 [degF] Fernie Furlong DO Work Phone: [facility] 12-19-2024 11:12-0500 Body weight 117.94 kg Fernie Furlong DO Work Phone: [facility] 12-19-2024 11:12-0500 Heart rate 60 /min [employer] DO Work Phone: [facility] 12-19-2024 11:12-0500 Respiratory rate 18 /min FernieMovero Technologylong DO Work Phone: [facility] 12-19-2024 11:12-0500 SaO2% (BldA) [Mass fraction] 95 % Fernie Furlong DO Work Phone: [facility] 11-04-2024 09:42-0500 Body height 165.[address] [facility] 11-04-2024 09:42-0500 Body mass index (BMI) [Ratio] 45.26 kg/m2 Pfo 1 [facility] 11-04-2024 09:42-0500 Body temperature 97.5 [degF] Pfo 1 [facility] 11-04-2024 09:42-0500 Body weight 123.[address] [facility] 11-04-2024 09:42-0500 Diastolic blood pressure 65 mm[Hg] Pfo [address] [facility] 11-04-2024 09:42-0500 Heart rate 65 /min Pfo [address] [facility] 11-04-2024 09:42-0500 Respiratory rate 18 /min Pfo 1 [facility] 11-04-2024 09:42-0500 SaO2% (BldA) [Mass fraction] 98 % Pfo [address] [facility] 11-04-2024 09:42-0500 Systolic blood pressure 153 mm[Hg] Pfo [address] [facility] 10-07-2024 09:29-0500 Body height 165.[address] [facility] 10-07-2024 09:29-0500 Body mass index (BMI) [Ratio] 45.26 kg/m2 Pfo 2 [facility] 10-07-2024 09:29-0500 Body temperature 97.59 [degF] Pfo 2 [facility] 10-07-2024 09:29-0500 Body weight 123.[address] [facility] 10-07-2024 09:29-0500 Diastolic blood pressure 63 mm[Hg] Pfo [address] [facility] 10-07-2024 09:29-0500 Heart rate 72 /min Pfo [address] [facility] 10-07-2024 09:29-0500 Respiratory rate 18 /min Pfo 2 [facility] 10-07-2024 09:29-0500 SaO2% (BldA) [Mass fraction] 94 % Pfo [address] [facility] 10-07-2024 09:29-0500 Systolic blood pressure 155 mm[Hg] Pfo [address] [facility] 10-01-2024 09:24-0500 Body height 165.[address] [facility] 10-01-2024 09:24-0500 Body mass index (BMI) [Ratio] 45.26 kg/m2 Pfo 5 [facility] 10-01-2024 09:24-0500 Body temperature 97.39 [degF] Pfo 5 [facility] 10-01-2024 09:24-0500 Body weight 123.[address] [facility] 10-01-2024 09:24-0500 Diastolic blood pressure 56 mm[Hg] Pfo 5 [facility] 10-01-2024 09:24-0500 Heart rate 76 /min Pfo 5 [facility] 10-01-2024 09:24-0500 Respiratory rate 16 /min Pfo 5 [facility] 10-01-2024 09:24-0500 SaO2% (BldA) [Mass fraction] 96 % Pfo [address] [facility] 10-01-2024 09:24-0500 Systolic blood pressure 153 mm[Hg] Pfo [address] [facility] 09-10-2024 09:21-0400 Body temperature 97.7 [degF] Pfo 5 [facility] 09-10-2024 09:21-0400 Diastolic blood pressure 61 mm[Hg] Pfo 5 [facility] 09-10-2024 09:21-0400 Heart rate 68 /min Pfo [address] [facility] 09-10-2024 09:[id number] Respiratory rate 18 /min Pfo 5 [facility] 09-10-2024 09:21-0400 SaO2% (BldA) [Mass fraction] 99 % Pfo [address] [facility] 09-10-2024 09:21-0400 Systolic blood pressure 164 mm[Hg] Pfo [address] [facility] 08-27-2024 09:270400 Body height 165.[address] [facility] 08-27-2024 09:270400 Body mass index (BMI) [Ratio] 46.1 kg/m2 Pfo 5 [facility] 08-27-2024 09:270400 Body temperature 97.39 [degF] Pfo 5 [facility] 08-27-2024 09:270400 Body weight 125.[address] [facility] 08-27-2024 09:27-0400 Diastolic blood pressure 86 mm[Hg] Pfo 5 [facility] 08-27-2024 09:270400 Heart rate 75 /min Pfo 5 [facility] 08-27-2024 09:270400 Respiratory rate 16 /min Pfo 5 [facility] 08-27-2024 09:27-0400 SaO2% (BldA) [Mass fraction] 98 % Pfo [address] [facility] 08-27-2024 09:27-0400 Systolic blood pressure 151 mm[Hg] Pfo [address] [facility] 08-20-2024 09:170400 Body height 165.[address] [facility] 08-20-2024 09:17-0400 Body mass index (BMI) [Ratio] 46.1 kg/m2 Pfo 5 [facility] 08-20-2024 09:17-0400 Body temperature 97.59 [degF] Pfo 5 [facility] 08-20-2024 09:170400 Body weight 125.[address] [facility] 08-20-2024 09:170400 Diastolic blood pressure 67 mm[Hg] Pfo [address] [facility] 08-20-2024 09:17-0400 Heart rate 66 /min Pfo [address] [facility] 08-20-2024 09:17-0400 Respiratory rate 16 /min Pfo 5 [facility] 08-20-2024 09:170400 SaO2% (BldA) [Mass fraction] 99 % Pfo [address] [facility] 08-20-2024 09:17-0400 Systolic blood pressure 167 mm[Hg] Pfo [address] [facility] 08-13-2024 09:200400 Body height 165.[address] [facility] 08-13-2024 09:200400 Body mass index (BMI) [Ratio] 46.1 kg/m2 Pfo 4 [facility] 08-13-2024 09:20-0400 Body temperature 97.59 [degF] Pfo 4 [facility] 08-13-2024 09:200400 Body weight 125.[address] [facility] 08-13-2024 09:20-0400 Diastolic blood pressure 65 mm[Hg] Pfo 4 [facility] 08-13-2024 09:20-0400 Heart rate 70 /min Pfo [address] [facility] 08-13-2024 09:20-0400 Respiratory rate 16 /min Pfo 4 [facility] 08-13-2024 09:20-0400 SaO2% (BldA) [Mass fraction] 96 % Pfo [address] [facility] 08-13-2024 09:20-0400 Systolic blood pressure 169 mm[Hg] Pfo [address] [facility] 08-06-2024 09:27-0400 Body height 165.[address] [facility] 08-06-2024 09:27-0400 Body mass index (BMI) [Ratio] 46.1 kg/m2 Pfo 5 [facility] 08-06-2024 09:27-0400 Body temperature 97.5 [degF] Pfo 5 [facility] 08-06-2024 09:27-0400 Body weight 125.[address] [facility] 08-06-2024 09:27-0400 Diastolic blood pressure 54 mm[Hg] Pfo 5 [facility] 08-06-2024 09:27-0400 Heart rate 73 /min Pfo 5 [facility] 08-06-2024 09:27-0400 Respiratory rate 16 /min Pfo 5 [facility] 08-06-2024 09:27-0400 SaO2% (BldA) [Mass fraction] 95 % Pfo [address] [facility] 08-06-2024 09:27-0400 Systolic blood pressure 160 mm[Hg] Pfo 5 [facility] 07-30-2024 09:22-0400 Body height 165.[address] [facility] 07-30-2024 09:22-0400 Body mass index (BMI) [Ratio] 46.26 kg/m2 Pfo 5 [facility] 07-30-2024 09:22-0400 Body temperature 97.2 [degF] Pfo 5 [facility] 07-30-2024 09:22-0400 Body weight 126.[address] [facility] 07-30-2024 09:22-0400 Diastolic blood pressure 63 mm[Hg] Pfo 5 [facility] 07-30-2024 09:22-0400 Heart rate 68 /min Pfo 5 [facility] 07-30-2024 09:22-0400 Respiratory rate 16 /min Pfo 5 [facility] 07-30-2024 09:22-0400 SaO2% (BldA) [Mass fraction] 94 % Pfo [address] [facility] 07-30-2024 09:22-0400 Systolic blood pressure 148 mm[Hg] Pfo 5 [facility] 07-23-2024 09:25-0400 Body height 165.[address] [facility] 07-23-2024 09:25-0400 Body mass index (BMI) [Ratio] 46.26 kg/m2 Pfo 5 [facility] 07-23-2024 09:25-0400 Body weight 126.[address] [facility] 07-23-2024 09:25-0400 Diastolic blood pressure 55 mm[Hg] Pfo 5 [facility] 07-23-2024 09:25-0400 Heart rate 62 /min Pfo 5 [facility] 07-23-2024 09:25-0400 Respiratory rate 16 /min Pfo 5 [facility] 07-23-2024 09:25-0400 SaO2% (BldA) [Mass fraction] 97 % Pfo [address] [facility] 07-23-2024 09:25-0400 Systolic blood pressure 155 mm[Hg] Pfo 5 [facility] 07-16-2024 09:44-0400 Body height 165.[address] [facility] 07-16-2024 09:44-0400 Body mass index (BMI) [Ratio] 46.26 kg/m2 Pfo 5 [facility] 07-16-2024 09:44-0400 Body temperature 97.7 [degF] Pfo 5 [facility] 07-16-2024 09:44-0400 Body weight 126.[address] [facility] 07-16-2024 09:44-0400 Diastolic blood pressure 54 mm[Hg] Pfo 5 [facility] 07-16-2024 09:44-0400 Heart rate 70 /min Pfo 5 [facility] 07-16-2024 09:44-0400 Respiratory rate 16 /min Pfo 5 [facility] 07-16-2024 09:44-0400 SaO2% (BldA) [Mass fraction] 100 % Pfo [address] [facility] 07-16-2024 09:44-0400 Systolic blood pressure 160 mm[Hg] Pfo 5 [facility] 07-09-2024 09:49-0400 Body height 165.[address] [facility] 07-09-2024 09:49-0400 Body mass index (BMI) [Ratio] 46.26 kg/m2 Pfo 1 [facility] 07-09-2024 09:49-0400 Body temperature 98.2 [degF] Pfo 1 [facility] 07-09-2024 09:49-0400 Body weight 126.[address] [facility] 07-09-2024 09:49-0400 Diastolic blood pressure 52 mm[Hg] Pfo [address] [facility] 07-09-2024 09:49-0400 Heart rate 78 /min Pfo [address] [facility] 07-09-2024 09:49-0400 Respiratory rate 16 /min Pfo 1 [facility] 07-09-2024 09:49-0400 SaO2% (BldA) [Mass fraction] 96 % Pfo [address] [facility] 07-09-2024 09:49-0400 Systolic blood pressure 147 mm[Hg] Pfo [address] [facility] 07-02-2024 09:34-0400 Body height 165.[address] [facility] 07-02-2024 09:34-0400 Body mass index (BMI) [Ratio] 46.26 kg/m2 Pfo 1 [facility] 07-02-2024 09:34-0400 Body temperature 97.39 [degF] Pfo 1 [facility] 07-02-2024 09:34-0400 Body weight 126.[address] [facility] 07-02-2024 09:34-0400 Diastolic blood pressure 60 mm[Hg] Pfo 1 [facility] 07-02-2024 09:34-0400 Heart rate 66 /min Pfo 1 [facility] 07-02-2024 09:34-0400 Respiratory rate 16 /min Pfo 1 [facility] 07-02-2024 09:34-0400 SaO2% (BldA) [Mass fraction] 98 % Pfo 1 [facility] 07-02-2024 09:34-0400 Systolic blood pressure 153 mm[Hg] Pfo 1 [facility] 06-25-2024 09:26-0400 Body height 165.[address] [facility] 06-25-2024 09:26-0400 Body mass index (BMI) [Ratio] 46.26 kg/m2 Pfo 7 [facility] 06-25-2024 09:26-0400 Body temperature 97.39 [degF] Pfo 7 [facility] 06-25-2024 09:26-0400 Body weight 126.[address] [facility] 06-25-2024 09:26-0400 Diastolic blood pressure 66 mm[Hg] Pfo 7 [facility] 06-25-2024 09:26-0400 Heart rate 83 /min Pfo 7 [facility] 06-25-2024 09:26-0400 Respiratory rate 16 /min Pfo 7 [facility] 06-25-2024 09:26-0400 SaO2% (BldA) [Mass fraction] 98 % Pfo 7 [facility] 06-25-2024 09:26-0400 Systolic blood pressure 156 mm[Hg] Pfo 7 [facility] 06-18-2024 09:30-0400 Body height 165.[address] [facility] 06-18-2024 09:30-0400 Body mass index (BMI) [Ratio] 46.1 kg/m2 Pfo 1 [facility] 06-18-2024 09:30-0400 Body temperature 97.5 [degF] Pfo 1 [facility] 06-18-2024 09:30-0400 Body weight 125.[address] [facility] 06-18-2024 09:30-0400 Diastolic blood pressure 46 mm[Hg] Pfo 1 [facility] 06-18-2024 09:30-0400 Heart rate 72 /min Pfo 1 [facility] 06-18-2024 09:30-0400 Respiratory rate 20 /min Pfo 1 [facility] 06-18-2024 09:30-0400 SaO2% (BldA) [Mass fraction] 95 % Pfo [address] [facility] 06-18-2024 09:30-0400 Systolic blood pressure 148 mm[Hg] Pfo 1 [facility] 06-11-2024 09:21-0400 Body height 165.[address] [facility] 06-11-2024 09:21-0400 Body mass index (BMI) [Ratio] 46.26 kg/m2 Pfo 1 [facility] 06-11-2024 09:21-0400 Body temperature 97.59 [degF] Pfo 1 [facility] 06-11-2024 09:21-0400 Body weight 126.[address] [facility] 06-11-2024 09:21-0400 Diastolic blood pressure 60 mm[Hg] Pfo 1 [facility] 06-11-2024 09:21-0400 Heart rate 88 /min Pfo [address] [facility] 06-11-2024 09:21-0400 Respiratory rate 20 /min Pfo 1 [facility] 06-11-2024 09:21-0400 SaO2% (BldA) [Mass fraction] 96 % Pfo [address] [facility] 06-11-2024 09:21-0400 Systolic blood pressure 147 mm[Hg] Pfo 1 [facility] 05-28-2024 09:34-0400 Body height 165.[address] [facility] 05-28-2024 09:34-0400 Body mass index (BMI) [Ratio] 46.43 kg/m2 Pfo 1 [facility] 05-28-2024 09:34-0400 Body temperature 97.5 [degF] Pfo 1 [facility] 05-28-2024 09:34-0400 Body weight 126.[address] [facility] 05-28-2024 09:34-0400 Diastolic blood pressure 66 mm[Hg] Pfo 1 [facility] 05-28-2024 09:34-0400 Heart rate 71 /min Pfo 1 [facility] 05-28-2024 09:34-0400 Respiratory rate 20 /min Pfo 1 [facility] 05-28-2024 09:34-0400 SaO2% (BldA) [Mass fraction] 99 % Pfo [address] [facility] 05-28-2024 09:34-0400 Systolic blood pressure 152 mm[Hg] Pfo 1 [facility] 05-27-2024 13:09-0400 Body height 165.1 cm Fernie Furlong DO Work Phone: [facility] 05-27-2024 13:09-0400 Body mass index (BMI) [Ratio] 46.64 kg/m2 Fernie Furlong DO Work Phone: [facility] 05-27-2024 13:09-0400 Body temperature 97.9 [degF] Fernie Furlong DO Work Phone: [facility] 05-27-2024 13:09-0400 Body weight 127.14 kg Fernie Furlong DO Work Phone: [facility] 05-27-2024 13:09-0400 Diastolic blood pressure 60 mm[Hg] Fernie Furlong DO Work Phone: [facility] 05-27-2024 13:09-0400 Heart rate 74 /min Fernie Furlong DO Work Phone: [facility] 05-27-2024 13:09-0400 Respiratory rate 18 /min Fernie Furlong DO Work Phone: [facility] 05-27-2024 13:09-0400 SaO2% (BldA) [Mass fraction] 94 % Fernie Furlong DO Work Phone: [facility] 05-27-2024 13:09-0400 Systolic blood pressure 140 mm[Hg] Fernie Furlong DO Work Phone: [facility] 05-21-2024 09:27-0400 Body height 165.[address] [facility] 05-21-2024 09:27-0400 Body mass index (BMI) [Ratio] 46.43 kg/m2 Pfo 1 [facility] 05-21-2024 09:27-0400 Body temperature 97.7 [degF] Pfo 1 [facility] 05-21-2024 09:27-0400 Body weight 126.[address] [facility] 05-21-2024 09:27-0400 Diastolic blood pressure 46 mm[Hg] Pfo 1 [facility] 05-21-2024 09:27-0400 Heart rate 63 /min Pfo [address] [facility] 05-21-2024 09:27-0400 Respiratory rate 20 /min Pfo 1 [facility] 05-21-2024 09:27-0400 SaO2% (BldA) [Mass fraction] 95 % Pfo [address] [facility] 05-21-2024 09:27-0400 Systolic blood pressure 167 mm[Hg] Pfo [address] [facility] 05-14-2024 09:15-0400 Body height 165.[address] [facility] 05-14-2024 09:15-0400 Body mass index (BMI) [Ratio] 46.43 kg/m2 Pfo 1 [facility] 05-14-2024 09:15-0400 Body temperature 97.81 [degF] Pfo 1 [facility] 05-14-2024 09:15-0400 Body weight 126.[address] [facility] 05-14-2024 09:15-0400 Diastolic blood pressure 59 mm[Hg] Pfo 1 [facility] 05-14-2024 09:15-0400 Heart rate 72 /min Pfo [address] [facility] 05-14-2024 09:15-0400 Respiratory rate 20 /min Pfo 1 [facility] 05-14-2024 09:15-0400 SaO2% (BldA) [Mass fraction] 95 % Pfo [address] [facility] 05-14-2024 09:15-0400 Systolic blood pressure 161 mm[Hg] Pfo [address] [facility] 05-07-2024 09:25-0400 Body height 165.[address] [facility] 05-07-2024 09:25-0400 Body mass index (BMI) [Ratio] 47.09 kg/m2 Pfo 1 [facility] 05-07-2024 09:25-0400 Body temperature 98.4 [degF] Pfo 1 [facility] 05-07-2024 09:25-0400 Body weight 128.[address] [facility] 05-07-2024 09:25-0400 Diastolic blood pressure 47 mm[Hg] Pfo [address] [facility] 05-07-2024 09:25-0400 Heart rate 69 /min Pfo [address] [facility] 05-07-2024 09:25-0400 Respiratory rate 20 /min Pfo 1 [facility] 05-07-2024 09:25-0400 SaO2% (BldA) [Mass fraction] 95 % Pfo [address] [facility] 05-07-2024 09:25-0400 Systolic blood pressure 169 mm[Hg] Pfo [address] [facility] 05-01-2024 13:52-0400 Body height 165.1 cm [facility] 05-01-2024 13:52-0400 Body mass index (BMI) [Ratio] 47.5 kg/m2 [facility] 05-01-2024 13:52-0400 Body temperature 96.7 [degF] [facility] 05-01-2024 13:52-0400 Body weight 129.38 kg [facility] 05-01-2024 13:52-0400 Diastolic blood pressure 60 mm[Hg] [facility] 05-01-2024 13:52-0400 Heart rate 76 /min [facility] 05-01-2024 13:52-0400 Respiratory rate 18 /min [facility] 05-01-2024 13:52-0400 SaO2% (BldA) [Mass fraction] 95 % [facility] 05-01-2024 13:52-0400 Systolic blood pressure 130 mm[Hg] [facility] 04-30-2024 09:190400 Body height 165.1 cm Pfo 1 [facility] [facility] 04-30-2024 09:190400 Body mass index (BMI) [Ratio] 47.26 kg/m2 Pfo [address] [facility] 04-30-2024 09:190400 Body temperature 97.81 [degF] [facility]-30-[facility] 09:0400 Body weight 128.[address] [facility] 04-30-2024 09:190400 Diastolic blood pressure 68 mm[Hg] Pfo 1 [facility] 04-30-2024 09:190400 Heart rate 65 /min Pfo [address] [facility] 04-30-2024 09:0400 Respiratory rate 20 /min Pfo 1 [facility] 04-30-2024 09:190400 SaO2% (BldA) [Mass fraction] 93 % Pfo [address] [facility] 04-30-2024 09:190400 Systolic blood pressure 175 mm[Hg] Pfo [address] [facility] 04-23-2024 09:0400 Body height 165.[address] [facility] 04-23-2024 09:28-0400 Body mass index (BMI) [Ratio] 46.93 kg/m2 Pfo 6 [facility] 04-23-2024 [id number]:280400 Body temperature 97.7 [degF] Pfo 6 [facility] 04-23-2024 09:0400 Body weight 127.[address] [facility] 04-23-2024 09:28-0400 Diastolic blood pressure 56 mm[Hg] Pfo 6 [facility] 04-23-2024 09:28-0400 Heart rate 69 /min Pfo 6 [facility] 04-23-2024 09:28-0400 Respiratory rate 24 /min Pfo 6 [facility] 04-23-2024 09:28-0400 SaO2% (BldA) [Mass fraction] 98 % Pfo 6 [facility] 04-23-2024 09:28-0400 Systolic blood pressure 177 mm[Hg] Pfo 6 [facility] 04-16-2024 09:190400 Body height 165.[address] [facility] 04-16-2024 09:190400 Body mass index (BMI) [Ratio] 46.76 kg/m2 Pfo 6 [facility] 04-16-2024 09:19-0400 Body temperature 97.39 [degF] Pfo 6 [facility] 04-16-2024 09:190400 Body weight 127.[address] [facility] 04-16-2024 09:190400 Diastolic blood pressure 65 mm[Hg] Pfo 6 [facility] 04-16-2024 09:190400 Heart rate 72 /min Pfo 6 [facility] 04-16-2024 09:190400 Respiratory rate 18 /min Pfo 6 [facility] 04-16-2024 09:190400 SaO2% (BldA) [Mass fraction] 96 % Pfo 6 [facility] 04-16-2024 09:190400 Systolic blood pressure 177 mm[Hg] Pfo 6 [facility] 04-09-2024 [id number]:[id number] Body height 165.[address] [facility] 04-09-2024 09:330400 Body mass index (BMI) [Ratio] 46.59 kg/m2 Pfo 6 [facility] 04-09-2024 09:33-0400 Body temperature 97.59 [degF] Pfo 6 [facility] 04-09-2024 [id number]:330400 Body weight 127.[address] [facility] 04-09-2024 09:33-0400 Diastolic blood pressure 66 mm[Hg] Pfo 6 [facility] 04-09-2024 09:33-0400 Heart rate 66 /min Pfo 6 [facility] 04-09-2024 09:33-0400 Respiratory rate 20 /min Pfo 6 [facility] 04-09-2024 09:33-0400 SaO2% (BldA) [Mass fraction] 96 % Pfo 6 [facility] 04-09-2024 09:33-0400 Systolic blood pressure 169 mm[Hg] Pfo 6 [facility] 04-02-2024 09:24-0400 Body height 165.[address] [facility] 04-02-2024 09:24-0400 Body mass index (BMI) [Ratio] 46.43 kg/m2 Pfo 4 [facility] 04-02-2024 09:24-0400 Body temperature 97.7 [degF] Pfo 4 [facility] 04-02-2024 09:24-0400 Body weight 126.[address] [facility] 04-02-2024 09:24-0400 Diastolic blood pressure 58 mm[Hg] Pfo 4 [facility] 04-02-2024 09:24-0400 Heart rate 71 /min Pfo 4 [facility] 04-02-2024 09:24-0400 Respiratory rate 20 /min Pfo 4 [facility] 04-02-2024 09:24-0400 SaO2% (BldA) [Mass fraction] 96 % Pfo 4 [facility] 04-02-2024 09:24-0400 Systolic blood pressure 168 mm[Hg] Pfo 4 [facility] 03-26-2024 09:32-0400 Body height 165.[address] [facility] 03-26-2024 09:32-0400 Body mass index (BMI) [Ratio] 46.1 kg/m2 Pfo 6 [facility] 03-26-2024 09:32-0400 Body temperature 97.7 [degF] Pfo 6 [facility] 03-26-2024 09:32-0400 Body weight 125.[address] [facility] 03-26-2024 09:32-0400 Diastolic blood pressure 67 mm[Hg] Pfo 6 [facility] 03-26-2024 09:32-0400 Heart rate 67 /min Pfo 6 [facility] 03-26-2024 09:32-0400 Respiratory rate 20 /min Pfo 6 [facility] 03-26-2024 09:32-0400 SaO2% (BldA) [Mass fraction] 95 % Pfo 6 [facility] 03-26-2024 09:32-0400 Systolic blood pressure 152 mm[Hg] Pfo 6 [facility] 03-19-2024 09:37-0400 Body height 165.[address] [facility] 03-19-2024 09:37-0400 Body mass index (BMI) [Ratio] 45.93 kg/m2 Pfo 4 [facility] 03-19-2024 09:37-0400 Body temperature 97.9 [degF] Pfo 4 [facility] 03-19-2024 09:37-0400 Body weight 125.[address] [facility] 03-19-2024 09:37-0400 Diastolic blood pressure 67 mm[Hg] Pfo 4 [facility] 03-19-2024 09:37-0400 Heart rate 65 /min Pfo 4 [facility] 03-19-2024 09:37-0400 Respiratory rate 20 /min Pfo 4 [facility] 03-19-2024 09:37-0400 SaO2% (BldA) [Mass fraction] 93 % Pfo 4 [facility] 03-19-2024 09:37-0400 Systolic blood pressure 180 mm[Hg] Pfo 4 [facility] 03-12-2024 09:30-0400 Body height 165.[address] [facility] 03-12-2024 09:30-0400 Body mass index (BMI) [Ratio] 45.83 kg/m2 Pfo 7 [facility] 03-12-2024 09:30-0400 Body temperature 97.5 [degF] Pfo 7 [facility] 03-12-2024 09:30-0400 Body weight 124.[address] [facility] 03-12-2024 09:30-0400 Diastolic blood pressure 55 mm[Hg] Pfo 7 [facility] 03-12-2024 09:30-0400 Heart rate 60 /min Pfo 7 [facility] 03-12-2024 09:30-0400 Respiratory rate 20 /min Pfo 7 [facility] 03-12-2024 09:30-0400 SaO2% (BldA) [Mass fraction] 95 % Pfo 7 [facility] 03-12-2024 09:30-0400 Systolic blood pressure 181 mm[Hg] Pfo 7 [facility] 02-25-2024 14:54-0400 Body height 165.1 cm Fernie Furlong DO Work Phone: [facility] 02-25-2024 14:54-0400 Body mass index (BMI) [Ratio] 44.56 kg/m2 Fernie Furlong DO Work Phone: [facility] 02-25-2024 14:54-0400 Body temperature 98.29 [degF] Fernie Furlong DO Work Phone: [facility] 02-25-2024 14:54-0400 Body weight 121.47 kg Fernie Furlong DO Work Phone: [facility] 02-25-2024 14:54-0400 Diastolic blood pressure 70 mm[Hg] Fernie Furlong DO Work Phone: [facility] 02-25-2024 14:54-0400 Heart rate 60 /min Fernie Furlong DO Work Phone: [facility] 02-25-2024 14:54-0400 SaO2% (BldA) [Mass fraction] 95 % Fernie Furlong DO Work Phone: [facility] 02-25-2024 14:54-0400 Systolic blood pressure 140 mm[Hg] Fernie Furlong DO Work Phone: [facility] 02-13-2024 09:26-0400 Body height 165.[address] [facility] 02-13-2024 09:26-0400 Body mass index (BMI) [Ratio] 44.6 kg/m2 Pfo 6 [facility] 02-13-2024 09:26-0400 Body temperature 97.7 [degF] Pfo 6 [facility] 02-13-2024 09:26-0400 Body weight 121.[address] [facility] 02-13-2024 09:26-0400 Diastolic blood pressure 60 mm[Hg] Pfo 6 [facility] 02-13-2024 09:26-0400 Heart rate 60 /min Pfo 6 [facility] 02-13-2024 09:26-0400 Respiratory rate 18 /min Pfo 6 [facility] 02-13-2024 09:26-0400 SaO2% (BldA) [Mass fraction] 94 % Pfo 6 [facility] 02-13-2024 09:26-0400 Systolic blood pressure 162 mm[Hg] Pfo 6 [facility] 02-06-2024 09:30-0400 Body height 165.[address] [facility] 02-06-2024 09:30-0400 Body mass index (BMI) [Ratio] 44.6 kg/m2 Pfo 6 [facility] 02-06-2024 09:30-0400 Body temperature 97.9 [degF] Pfo 6 [facility] 02-06-2024 09:30-0400 Body weight 121.[address] [facility] 02-06-2024 09:30-0400 Diastolic blood pressure 75 mm[Hg] Pfo 6 [facility] 02-06-2024 09:30-0400 Heart rate 60 /min Pfo 6 [facility] 02-06-2024 09:30-0400 Respiratory rate 188 /min Pfo 6 [facility] 02-06-2024 09:30-0400 SaO2% (BldA) [Mass fraction] 98 % Pfo 6 [facility] 02-06-2024 09:30-0400 Systolic blood pressure 176 mm[Hg] Pfo 6 [facility] 01-30-2024 09:25-0400 Body height 165.[address] [facility] 01-30-2024 09:25-0400 Body mass index (BMI) [Ratio] 44.93 kg/m2 Pfo 6 [facility] 01-30-2024 09:25-0400 Body temperature 97.7 [degF] Pfo 6 [facility] 01-30-2024 09:25-0400 Body weight 122.[address] [facility] 01-30-2024 09:25-0400 Diastolic blood pressure 60 mm[Hg] Pfo 6 [facility] 01-30-2024 09:25-0400 Heart rate 56 /min Pfo 6 [facility] 01-30-2024 09:25-0400 Respiratory rate 18 /min Pfo 6 [facility] 01-30-2024 09:25-0400 SaO2% (BldA) [Mass fraction] 93 % Pfo 6 [facility] 01-30-2024 09:25-0400 Systolic blood pressure 168 mm[Hg] Pfo 6 [facility] 01-23-2024 09:33-0400 Body height 165.[address] [facility] 01-23-2024 09:33-0400 Body mass index (BMI) [Ratio] 45.93 kg/m2 Pfo 6 [facility] 01-23-2024 09:33-0400 Body temperature 97.39 [degF] Pfo 6 [facility] 01-23-2024 09:33-0400 Body weight 125.[address] [facility] 01-23-2024 09:33-0400 Diastolic blood pressure 73 mm[Hg] Pfo 6 [facility] 01-23-2024 09:33-0400 Heart rate 66 /min Pfo 6 [facility] 01-23-2024 09:33-0400 Respiratory rate 18 /min Pfo 6 [facility] 01-23-2024 09:33-0400 SaO2% (BldA) [Mass fraction] 98 % Pfo 6 [facility] 01-23-2024 09:33-0400 Systolic blood pressure 180 mm[Hg] Pfo 6 [facility] 01-16-2024 09:24-0500 Body height 165.[address] [facility] 01-16-2024 09:24-0500 Body mass index (BMI) [Ratio] 46.1 kg/m2 Pfo 6 [facility] 01-16-2024 09:24-0500 Body temperature 98.01 [degF] Pfo 6 [facility] 01-16-2024 09:24-0500 Body weight 125.[address] [facility] 01-16-2024 09:24-0500 Diastolic blood pressure 80 mm[Hg] Pfo 6 [facility] 01-16-2024 09:24-0500 Heart rate 71 /min Pfo 6 [facility] 01-16-2024 09:24-0500 Respiratory rate 18 /min Pfo 6 [facility] 01-16-2024 09:24-0500 SaO2% (BldA) [Mass fraction] 97 % Pfo 6 [facility] 01-16-2024 09:24-0500 Systolic blood pressure 180 mm[Hg] Pfo 6 [facility] 01-09-2024 09:36-0500 Body height 165.[address] [facility] 01-09-2024 09:36-0500 Body mass index (BMI) [Ratio] 46.1 kg/m2 Pfo 3 [facility] 01-09-2024 09:36-0500 Body temperature 97.9 [degF] Pfo 3 [facility] 01-09-2024 09:36-0500 Body weight 125.[address] [facility] 01-09-2024 09:36-0500 Diastolic blood pressure 75 mm[Hg] Pfo 3 [facility] 01-09-2024 09:36-0500 Heart rate 70 /min Pfo 3 [facility] 01-09-2024 09:36-0500 Respiratory rate 18 /min Pfo 3 [facility] 01-09-2024 09:36-0500 SaO2% (BldA) [Mass fraction] 97 % Pfo 3 [facility] 01-09-2024 09:36-0500 Systolic blood pressure 180 mm[Hg] Pfo 3 [facility] 01-02-2024 09:37-0500 Body temperature 98.01 [degF] Pfo 4 [facility] 01-02-2024 09:37-0500 Diastolic blood pressure 72 mm[Hg] Pfo 4 [facility] 01-02-2024 09:37-0500 Heart rate 62 /min Pfo 4 [facility] 01-02-2024 09:37-0500 Respiratory rate 18 /min Pfo 4 [facility] 01-02-2024 09:37-0500 SaO2% (BldA) [Mass fraction] 95 % Pfo 4 [facility] 01-02-2024 09:37-0500 Systolic blood pressure 184 mm[Hg] Pfo 4 [facility] 12-26-2023 09:37-0500 Body height 165.[address] [facility] 12-26-2023 09:37-0500 Body mass index (BMI) [Ratio] 46.1 kg/m2 Pfo 4 [facility] 12-26-2023 09:37-0500 Body temperature 97.7 [degF] Pfo 4 [facility] 12-26-2023 09:37-0500 Body weight 125.[address] [facility] 12-26-2023 09:37-0500 Diastolic blood pressure 64 mm[Hg] Pfo 4 [facility] 12-26-2023 09:37-0500 Heart rate 67 /min Pfo 4 [facility] 12-26-2023 09:37-0500 Respiratory rate 18 /min Pfo 4 [facility] 12-26-2023 09:37-0500 SaO2% (BldA) [Mass fraction] 96 % Pfo 4 [facility] 12-26-2023 09:37-0500 Systolic blood pressure 177 mm[Hg] Pfo 4 [facility] 12-19-2023 09:30-0500 Body height 165.[address] [facility] 12-19-2023 09:30-0500 Body mass index (BMI) [Ratio] 46.13 kg/m2 Pfo 2 [facility] 12-19-2023 09:30-0500 Body temperature 97.39 [degF] [facility] 12-19-[facility]23 09:30-0500 Body weight 125.[address] [facility] 12-19-2023 09:30-0500 Diastolic blood pressure 67 mm[Hg] Pfo 2 [facility] 12-19-2023 09:30-0500 Heart rate 67 /min Pfo 2 [facility] 12-19-2023 09:30-0500 Respiratory rate 18 /min Pfo 2 [facility] 12-19-2023 09:30-0500 SaO2% (BldA) [Mass fraction] 97 % Pfo 2 [facility] 12-19-2023 09:30-0500 Systolic blood pressure 196 mm[Hg] Pfo 2 [facility] 12-12-2023 09:25-0500 Body height 165.[address] [facility] 12-12-2023 09:25-0500 Body mass index (BMI) [Ratio] 45.43 kg/m2 Pfo 2 [facility] 12-12-2023 09:25-0500 Body temperature 97.5 [degF] Pfo 2 [facility] 12-12-2023 09:25-0500 Body weight 123.[address] [facility] 12-12-2023 09:25-0500 Diastolic blood pressure 71 mm[Hg] Pfo 2 [facility] 12-12-2023 09:25-0500 Heart rate 70 /min Pfo 2 [facility] 12-12-2023 09:25-0500 Respiratory rate 18 /min Pfo 2 [facility] 12-12-2023 09:25-0500 SaO2% (BldA) [Mass fraction] 98 % Pfo 2 [facility] 12-12-2023 09:25-0500 Systolic blood pressure 166 mm[Hg] Pfo 2 [facility] 12-05-2023 09:15-0500 Body height 165.[address] [facility] 12-05-2023 09:15-0500 Body mass index (BMI) [Ratio] 44.76 kg/m2 Pfo 2 [facility] 12-05-2023 09:15-0500 Body temperature 97.39 [degF] Pfo 2 [facility] 12-05-2023 09:15-0500 Body weight 122.[address] [facility] 12-05-2023 09:15-0500 Diastolic blood pressure 70 mm[Hg] Pfo 2 [facility] 12-05-2023 09:15-0500 Heart rate 71 /min Pfo 2 [facility] 12-05-2023 09:15-0500 Respiratory rate 18 /min Pfo 2 [facility] 12-05-2023 09:15-0500 SaO2% (BldA) [Mass fraction] 96 % Pfo 2 [facility] 12-05-2023 09:15-0500 Systolic blood pressure 157 mm[Hg] Pfo 2 [facility] 11-28-2023 09:17-0500 Body height 165.[address] [facility] 11-28-2023 09:17-0500 Body mass index (BMI) [Ratio] 44.93 kg/m2 Pfo 1 [facility] 11-28-2023 09:17-0500 Body temperature 97.2 [degF] Pfo 1 [facility] 11-28-2023 09:17-0500 Body weight 122.[address] [facility] 11-28-2023 09:17-0500 Diastolic blood pressure 56 mm[Hg] Pfo 1 [facility] 11-28-2023 09:17-0500 Heart rate 79 /min Pfo 1 [facility] 11-28-2023 09:17-0500 Respiratory rate 18 /min Pfo 1 [facility] 11-28-2023 09:17-0500 SaO2% (BldA) [Mass fraction] 99 % Pfo [address] [facility] 11-28-2023 09:17-0500 Systolic blood pressure 156 mm[Hg] Pfo 1 [facility] 11-26-2023 13:40-0500 Body height 165.1 cm Fernie Molinalopoornima DO Work Phone: [facility] 11-26-2023 13:40-0500 Body mass index (BMI) [Ratio] 44.45 kg/m2 Fern[facility] Furlong [facility] 11-26-2023 13:40-0500 Body temperature 97.3 [degF] Fernie Furlong DO Work Phone: [facility] [employer] 11-26-2023 13:40-0500 Body weight 121.16 kg Fernie Furlong DO Work Phone: [facility] [employer] 11-26-2023 13:40-0500 Diastolic blood pressure 62 mm[Hg] Fernie Furlong DO Work Phone: [facility] [employer] 11-26-2023 13:40-0500 Heart rate 62 /min Fernie Furlong DO Work Phone: [facility] [employer] 11-26-2023 13:40-0500 SaO2% (BldA) [Mass fraction] 96 % Fernie Furlong DO Work Phone: [facility] [employer] 11-26-2023 13:40-0500 Systolic blood pressure 130 mm[Hg] Fernie Furlong DO Work Phone: [facility] [employer] [facility] 11-21-2023 10:01-0500 Body height 165.1 cm Pfo 1 [facility] [employer] [facility] 11-21-2023 10:01-0500 Body mass index (BMI) [Ratio] 44.6 kg/m2 Pfo 1 [facility] [employer] [facility] 11-21-2023 10:01-0500 Body temperature 97.81 [degF] Pfo 1 [facility] [employer] [facility] 11-21-2023 10:01-0500 Body weight 121.56 kg Pfo 1 [facility] [employer] [facility] 11-21-2023 10:01-0500 Diastolic blood pressure 52 mm[Hg] Pfo 1 [facility] [facility] 11-21-2023 10:01-0500 Heart rate 62 /min Pfo 1 [facility] [employer] [facility] 11-21-2023 10:01-0500 Respiratory rate 18 /min Pfo [address] [facility] [employer] 11-21-2023 10:01-0500 SaO2% (BldA) [Mass fraction] 94 % Pfo 1 [facility] 11-21-2023 10:01-0500 Systolic blood pressure 122 mm[Hg] Pfo [address] [facility] 11-16-2023 09:00-0500 Body temperature 96.6 [degF] DO Fernie Furlong Work Phone: [facility] 11-16-2023 09:00-0500 Diastolic blood pressure 74 mm[Hg] DO Fernie Furlong Work Phone: [facility] 11-16-2023 09:00-0500 Heart rate 71 /min DO Fernie Furlong Work Phone: [facility] 11-16-2023 09:00-0500 Respiratory rate 18 /min DO Fernie Grapeshotlong Work Phone: [facility] 11-16-2023 09:00-0500 SaO2% (BldA) [Mass fraction] 97 % DO Fernie Furlong Work Phone: [facility] 11-16-2023 09:00-0500 Systolic blood pressure 148 mm[Hg] DO Fernie Furlong Work Phone: [facility] 08-23-2023 12:20-0400 Body height 165.1 cm Gia Tammy Other [employer] Other 08-23-2023 12:20-0400 Body mass index (BMI) [Ratio] 44.09 kg/m2 Gia Tammy Other [employer] Other 08-23-2023 12:20-0400 Body temperature 96.6 [degF] Gia Tammy Other [employer] Other 08-23-2023 12:20-0400 Body weight 120.2 kg Gia Tammy Other [employer] Other 08-23-2023 12:20-0400 Diastolic blood pressure 86 mm[Hg] Gia Tammy Other [employer] Other 08-23-2023 12:20-0400 Respiratory rate 18 /min Gia Tammy Other [employer] Other 08-23-2023 12:20-0400 SaO2% (BldA) [Mass fraction] 96 % Iga Tammy Other [employer] Other 08-23-2023 12:20-0400 Systolic blood pressure 138 mm[Hg] Gia Tammy Other [employer] Other 01-25-2023 12:20-0400 Body height 165.1 cm Gia Tammy Other [employer] Other 01-25-2023 12:20-0400 Body mass index (BMI) [Ratio] 45.76 kg/m2 Gia Tammy Other [employer] Other 01-25-2023 12:20-0400 Body temperature 96.7 [degF] Gia Tammy Other [employer] Other 01-25-2023 12:20-0400 Body weight 124.74 kg Gia Tammy Other [employer] Other 01-25-2023 12:20-0400 Diastolic blood pressure 80 mm[Hg] Gia Tammy Other [employer] Other 01-25-2023 12:20-0400 Respiratory rate 18 /min Gia Tammy Other [employer] Other 01-25-2023 12:20-0400 SaO2% (BldA) [Mass fraction] 96 % Gia Tammy Other [employer] Other 01-25-2023 12:20-0400 Systolic blood pressure 139 mm[Hg] Gia Tammy Other [employer] Other 07-20-2022 13:00-0400 Body height 165.1 cm Gia Tammy Other [employer] Other 07-20-2022 13:00-0400 Body temperature 96 [degF] Gia Tammy Other [employer] Other 07-20-2022 13:00-0400 Diastolic blood pressure 71 mm[Hg] Gia Tammy Other [employer] Other 07-20-2022 13:00-0400 Respiratory rate 18 /min Gia Tammy Other [employer] Other 07-20-2022 13:00-0400 SaO2% (BldA) [Mass fraction] 96 % Gia Tammy Other [employer] Other 07-20-2022 13:00-0400 Systolic blood pressure 134 mm[Hg] Gia Tammy Other [employer] Other 04-06-2022 12:00-0400 Body height 165.1 cm Gia Tammy Other [employer] Other 04-06-2022 12:00-0400 Body mass index (BMI) [Ratio] 46.32 kg/m2 Gia Tammy Other [employer] Other 04-06-2022 12:00-0400 Body temperature 98 [degF] Gia Tammy Other [employer] Other 04-06-2022 12:00-0400 Body weight 126.28 kg Gia Tammy Other [employer] Other 04-06-2022 12:00-0400 Diastolic blood pressure 70 mm[Hg] Gia Tammy Other [employer] Other 04-06-2022 12:00-0400 Respiratory rate 20 /min Gia Tammy Other [employer] Other 04-06-2022 12:00-0400 SaO2% (BldA) [Mass fraction] 93 % Gia Tammy Other [employer] Other 04-06-2022 12:00-0400 Systolic blood pressure 122 mm[Hg] Gia Tammy Other [employer] Other 12-27-2021 16:20-0500 Body height 165.1 cm Gia Tammy Other [employer] Other 12-27-2021 16:20-0500 Body mass index (BMI) [Ratio] 46.29 kg/m2 Gia Tammy Other [employer] Other 12-27-2021 16:20-0500 Body temperature 96.2 [degF] Gia Tammy Other [employer] Other 12-27-2021 16:20-0500 Body weight 126.19 kg Gia Tammy Other [employer] Other 12-27-2021 16:20-0500 Diastolic blood pressure 78 mm[Hg] Gia Tammy Other [employer] Other 12-27-2021 16:20-0500 Respiratory rate 20 /min Gia Tammy Other [employer] Other 12-27-2021 16:20-0500 SaO2% (BldA) [Mass fraction] 95 % Gia Tammy Other [employer] Other 12-27-2021 16:20-0500 Systolic blood pressure 161 mm[Hg] Gia Tammy Other [employer] Other Encounters Encounter Date Encounter Type Care Provider Facility Start: 01-09-2025 End: 01-11-2025 ambulatory Fernie Clark DO Work Phone: [facility] Comment on above: Metabolic encephalop athy (Primary Dx); Urinary tract infection with hematuria, site unspecified; Chronic neck pain; Chronic left-sided thoracic back pain; 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 ([facility]) Start: 01-08-2025 End: 01-08-2025 ambulatory Fernie Clark DO Work Phone: [facility] Work Phone: Start: 01-08-2025 End: 01-08-2025 Departed Referred Fernie Clark DO Work Phone: [facility] Start: 01-04-2025 ambulatory FERNIE CLARK [facility] Start: 01-03-2025 End: 01-03-2025 ambulatory Fernie Clark DO Work Phone: [facility] Work Phone: Start: 01-03-2025 End: 01-03-2025 Departed Referred Fernie Clark DO Work Phone: [facility] Start: 01-03-2025 End: 01-03-2025 Telephone encounter [facility] Comment on above: [...] 12-18-2024 End: 12-18-2024 Telephone encounter [facility] Comment on above: EMG order Start: 12-10-2024 End: 12-10-2024 Orders Only Fernie Mascorrong DO Work Phone: [facility] Start: 12-07-2024 End: 12-09-2024 Non-patient / Non-visit Fernie Furlong DO Work Phone: [facility] Work Phone: Start: 12-02-2024 Non-patient / Non-visit Fernie Furlong DO Work Phone: [facility] Work Phone: Start: 12-02-2024 End: 12-02-2024 Orders Only Fernie Ricketts Furlong DO Work Phone: [facility] Comment on above: Lumbar stenosis with neurogenic claudication (Primary Dx) Start: 12-01-2024 End: 12-01-2024 Telephone encounter Jennifer Vale [facility] Comment on above: orders for patient t o be sent out to hospital for evaluation Start: 11-24-2024 End: 11-28-2024 Non-patient / Non-visit Fernie Furlong DO Work Phone: [facility] Work Phone: Start: 11-24-2024 End: 11-24-2024 Telephone encounter Fernie Mascorrong DO Work Phone: [facility] Start: 11-20-2024 Non-patient / Non-visit Fernie Furlong DO Work Phone: [facility] Work Phone: Start: 11-20-2024 End: 11-20-2024 ambulatory Fernie Furlong DO Work Phone: [facility] Work Phone: Start: 11-20-2024 End: 11-20-2024 Departed Referred Fernie Furlong DO Work Phone: [facility] Start: 11-18-2024 End: 11-18-2024 Orders Only Fannie Lucas r [facility] Medical Oncology Comment on above: Hypomagnesemia (Prim fara Dx) Start: 11-17-2024 End: 11-19-2024 Telephone encounter Fernie Clark DO [facility] Start: 11-17-2024 End: 11-17-20[facility] Start: 11-10-2024 End: 11-10-2024 ambulatory [facility] Start: 11-04-2024 End: 11-04-2024 ambulatory Pfo Infusion Bed 1 Elida hu [facility] Medical Oncology Comment on above: Hypomagnesemia (Prim fara Dx) Start: 11-03-2024 End: 11-03-2024 Refill Fernie Clark DO Work [facility] Start: 11-03-2024 End: 11-03-2024 Orders Only Fernie Clark DO Work Phone: [facility] Start: 11-03-2024 End: 11-03-2024 ambulatory Christian Curtis MD Facility:[facility] Start: 10-27-2024 End: 10-27-2024 ambulatory [facility] Start: 10-20-2024 End: 10-20-2024 Documentation procedure Clara prince [facility] On[facility] Start: 10-20-2024 End: 10-20-2024 ambulatory [facility] Start: 10-13-2024 End: 10-13-2024 ambulatory [facility] Start: 10-07-2024 End: 10-14-2024 Refill Fernie Clark DO Work Phone: [facility] - Family [facility] Start: 10-07-2024 End: 10-07-2024 ambulatory [facility] Comment on above: Hypomagnesemia (Prim fara Dx) Start: 10-06-2024 End: 10-06-2024 [facility] Start: 10-01-2024 End: 10-01-2024 ambulatory FERNIE G [facility] Comment on above: Hypomagnesemia (Prim fara Dx) Start: 09-29-2024 End: 09-29-2024 [facility] Start: 09-27-2024 End: 09-27-2024 Orders Only Fernie Clark DO Work Phone: [facility] Start: 09-26-2024 End: 09-26-2024 Evaluation and management of inpatient [facility] Start: 09-22-2024 End: 09-22-2024 [facility] Start: 09-15-2024 End: 09-15-2024 [facility] Start: 09-11-2024 End: 09-11-2024 Refill Fernie Clark DO Work Phone: [facility] Start: 09-10-2024 End: 09-10-2024 Telephone encounter Nina Mcgee [facility] Comment on above: EMG NEW PATIENT Start: 09-10-2024 End: 09-10-2024 [facility] on above: Hypomagnesemia (Prim fara Dx) Start: 09-08-2024 End: 09-08-2024 ambulatory [facility] Start: 09-04-2024 End: 09-04-2024 Orders Only Fernie Mascorrong DO Work Phone: [facility] Comment on above: Paresthesia of right lower extremity (Primary Dx); Ross's esophagus with dysplasia Start: 09-01-2024 End: 09-01-2024 Documentation procedure Americo Lira [facility] - Medical Oncology Start: 09-01-2024 End: 09-01-2024 [facility] Start: 08-27-2024 End: 08-27-[address] [facility] Comment on above: Hypomagnesemia (Prim fara Dx) Start: 08-25-2024 End: 08-25-2024 [facility] Start: 08-22-2024 End: 08-25-2024 Refill Fernie Clark DO Work Phone[facility] Comment on above: 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 ([facility]) (Primary Dx); Morbid obesity ([facility]) Start: 08-20-2024 End: 08-20-2024 [facility] Comment on above: Hypomagnesemia (Prim fara Dx) Start: 08-18-2024 End: 08-18-2024 [facility] Start: 08-13-2024 End: [facility] [facility] Comment on above: Hypomagnesemia (Prim fara Dx) Start: 08-11-2024 End: 08-11-2024 [facility] Start: 08-06-2024 End: 08-06-2024 [facility] FERNIE Ricketts [facility] Comment on above: Hypomagnesemia (Prim afra Dx) Start: 08-05-2024 End: 08-05-2024 Orders Only Fernie Clark DO Work Phone: [facility] Start: 08-04-2024 End: 08-04-2024 [facility] Start: 07-30-2024 End: 07-30-2024 [facility] Comment on above: Hypomagnesemia (Prim fara Dx) Start: 07-28-2024 End: 07-28-2024 [facility] Start: 07-28-2024 End: 07-28-2024 ambulatory Christian Curtis MD Facility: [facility] Start: 07-23-2024 End: 07-23-2024 [facility] Comment on above: Hypomagnesemia (Prim fara Dx) Start: 07-21-2024 End: 07-21-2024 [facility] Start: 07-17-2024 End: 07-17-2024 Refill Fernie Ricketts Furlong DO Work Phone: [facility] Start: 07-16-2024 End: 07-16-2024 [facility] Comment on above: Hypomagnesemia (Prim fara Dx) Start: 07-15-2024 End: 07-15-2024 [facility] Start: 07-09-2024 End: 07-09-2024 [facility] Comment on above: Hypomagnesemia (Prim fara Dx) Start: 07-07-2024 End: 07-07-2024 [facility] Start: 07-02-2024 End: 07-02-2024 [facility] Comment on above: Hypomagnesemia (Prim fara Dx) Start: 06-30-2024 End: 06-30-2024 [facility] Start: 06-27-2024 End: 06-27-2024 Refill Fernie G Furlong DO Work Phone: [facility] Start: 06-25-2024 End: 06-25-2024 [facility] Comment on above: Hypomagnesemia (Prim fara Dx) Start: 06-23-2024 End: 06-23-2024 [facility] Start: 06-18-2024 End: 06-18-2024 [facility] Comment on above: Hypomagnesemia (Prim fara Dx) Start: 06-16-2024 End: 06-16-2024 [facility] Start: 06-11-2024 End: 06-11-2024 [facility] Comment on above: Hypomagnesemia (Prim fara Dx) Start: 06-09-2024 End: 06-09-2024 [facility] Start: 06-04-2024 End: 06-04-2024 [facility] Start: 06-02-2024 End: 06-02-2024 [facility] Start: 05-30-2024 End: 05-30-2024 [facility] Start: 05-29-2024 End: 05-29-2024 Telephone encounter Fernie Clark DO Work [facility] Start: 05-28-2024 End: 05-28-2024 [facility] Comment on above: Hypomagnesemia (Prim fara Dx) Start: 05-27-2024 End: 05-27-2024 [facility] Start: 05-27-2024 End: 05-27-2024 Office outpatient visit 25 minutes Fernie Clark DO Work Phone: [facility] Comment on above: 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 ([facility]) (Primary Dx); Dysuria; Acute rhinitis; Morbid obesity ([facility]); Incontinence of feces with fecal urgency Start: 05-27-2024 End: 05-27-2024 [facility] Start: 05-26-2024 End: 05-26-2024 [facility] Start: 05-21-2024 End: 05-21-2024 ambulatory [facility] Comment on above: Hypomagnesemia (Prim fara Dx) Start: 05-19-2024 End: 05-19-2024 [facility] Start: 05-14-2024 End: 05-14-2024 ambulatory [facility] Comment on above: Hypomagnesemia (Prim fara Dx) Start: 05-12-2024 End: 05-12-2024 [facility] Start: 05-07-2024 End: 05-07-2024 ambulatory [facility] Comment on above: Hypomagnesemia (Prim fara Dx) Start: 05-05-2024 End: 05-05-2024 [facility] Start: 05-01-2024 End: 05-01-2024 ambulatory [facility] Work Phone: Start: 05-01-2024 End: 05-01-2024 Patient encounter procedure [facility] Nephrology Tod Work Phone: Start: 04-30-2024 End: 04-30-2024 [facility] Comment on above: Hypomagnesemia (Prim fara Dx) Start: 04-29-2024 End: 04-29-2024 Refill Fernie Jamarcus Clark DO Work Phone: [facility] Start: 04-29-2024 End: 04-29-2024 Refill Elba Bae CMA [facility] Start: 04-28-2024 Non-patient / Non-visit [facility] Nephrology Work Phone: Start: 04-28-2024 End: 04-28-2024 [facility] Start: 04-23-2024 End: 04-23-2024 ambulatory [facility] Comment on above: Hypomagnesemia (Prim fara Dx) Start: 04-21-2024 End: 04-21-2024 [facility] Start: 04-16-2024 End: 04-16-2024 [facility] Comment on above: Hypomagnesemia (Prim fara Dx) Start: 04-14-2024 End: 04-14-2024 [facility] Start: 04-09-2024 End: 04-09-2024 Refill Fernie Ricketts Furlong DO Work Phone: [facility] Start: 04-09-2024 End: 04-09-2024 [facility] Comment on above: Hypomagnesemia (Prim fara Dx) Start: 04-08-2024 End: 04-08-2024 [facility] Start: 04-02-2024 End: 04-02-2024 [facility] Comment on above: Hypomagnesemia (Prim fara Dx) Start: 03-31-2024 End: 03-31-2024 Refill Fernie G Furlong DO Work Phone: [facility] - Family [facility] Start: 03-31-2024 End: 03-31-2024 [facility] Start: 03-26-2024 End: 03-26-2024 [facility] Comment on above: Hypomagnesemia (Prim fara Dx) Start: 03-24-2024 End: 03-24-2024 [facility] Start: 03-19-2024 End: 03-19-2024 [facility] Comment on above: Hypomagnesemia (Prim fara Dx) Start: 03-17-2024 End: 03-17-2024 Refill Fernie G Furlong DO Work Phone: [facility] Start: 03-17-2024 End: 03-17-2024 [facility] Start: 03-12-2024 End: 03-12-2024 [facility] Comment on above: Hypomagnesemia (Prim fara Dx) Start: 03-10-2024 End: 03-10-2024 [facility] Start: 03-03-2024 End: 03-03-2024 [facility] Start: 02-25-2024 End: 02-25-2024 Office [facility] Work Phone: [facility] Comment on above: Urinary incontinence , unspecified type (Primary Dx); Abnormality of gait and mobility Start: 02-25-2024 End: 02-25-2024 [facility] Start: 02-25-2024 End: 02-25-2024 Documentation procedure Millie Ireland [facility] - Medical Oncology Start: 02-25-2024 End: 02-25-2024 [facility] Start: 02-20-2024 End: 02-20-2024 Documentation procedure Americo Lira [facility] Medical Oncology Start: 02-19-2024 End: 02-19-2024 Documentation procedure Americo Lira [facility] Medical Oncology Start: 02-18-2024 End: 02-18-2024 [facility] Start: 02-13-2024 End: 02-13-2024 [facility] Comment on above: Hypomagnesemia (Prim fara Dx) Start: 02-11-2024 End: 02-11-2024 [facility] Start: 02-06-2024 End: 02-06-2024 [facility] Comment on above: Hypomagnesemia (Prim fara Dx) Start: 02-04-2024 End: 02-04-2024 ambulatory [facility] Start: 02-04-2024 End: 02-04-2024 ambulatory Christian Curtis MD Facility:[facility] Start: 01-30-2024 End: 01-30-2024 [facility] Comment on above: Hypomagnesemia (Prim fara Dx) Start: 01-28-2024 End: 01-28-2024 ambulatory [facility] Start: 01-23-2024 End: 01-23-2024 [facility] Comment on above: Hypomagnesemia (Prim fara Dx) Start: 01-21-2024 End: 01-21-2024 [facility] Start: 01-21-2024 End: 01-21-2024 ambulatory Christian Curtis MD Facility:[facility] Start: 01-17-2024 Orders Only Fernie Mascorro poornima DO Work Phone: [facility] Comment on above: Hypertension in sta e 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 ([facility]) (Primary Dx) Start: 01-16-2024 End: 01-16-2024 [facility] Comment on above: Hypomagnesemia (Prim fara Dx) Start: 01-14-2024 End: 01-14-2024 ambulatory [facility] Start: 01-09-2024 End: 01-09-2024 ambulatory [facility] Comment on above: Hypomagnesemia (Prim fara Dx) Start: 01-08-2024 End: 01-08-2024 Patient encounter procedure Fernie Clark DO Work Phone: [facility] Comment on above: Medicare annual well ness visit, subsequent (Primary Dx); Screening for depression Start: 01-07-2024 End: 01-07-2024 [facility] Start: 01-02-2024 End: 01-11-2024 [facility] Comment on above: Hypomagnesemia (Prim fara Dx) Start: 12-31-2023 End: 12-31-2023 [facility] Start: 12-26-2023 End: 12-26-2023 [facility] Comment on above: Hypomagnesemia (Prim fara Dx) Start: 12-24-2023 End: 12-24-2023 [facility] Start: 12-19-2023 End: 12-19-2023 [facility] Comment on above: Hypomagnesemia (Prim fara Dx) Start: 12-17-2023 End: 12-17-2023 [facility] Start: 12-12-2023 End: 12-12-2023 [facility] Comment on above: Hypomagnesemia (Prim fara Dx) Start: 12-11-2023 Refill Theresa Dhaval JEANNE [facility] Start: 12-10-2023 End: 12-10-2023 [facility] Start: 12-07-2023 Orders Only Fernie Mascorro ng DO Work [facility] Start: 12-05-2023 Telephone encounter [facility] Nephrology Start: 12-05-2023 End: 12-05-2023 ambulatory [facility] Comment on above: Hypomagnesemia (Prim fara Dx) Start: 12-04-2023 Refill Fernie Ricketts Tracylo ng DO Work Phone: [facility] Start: 12-03-2023 End: 12-03-2023 [facility] Start: 11-28-2023 End: 11-28-2023 ambulatory FERNIE [facility] Comment on above: Hypomagnesemia (Prim fara Dx) Start: 11-26-2023 End: 11-26-2023 ambulatory FERNIE Ricketts [facility] Start: 11-26-2023 End: 11-26-2023 Office outpatient visit 25 minutes Fernie Clark DO Work Phone: [facility] - Family Medicine Comment on above: Hypertension 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 ([facility]) (Primary Dx); Mixed hyperlipidemia; Hypomagnesemia; 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; Morbid obesity ([facility]); Chronic obstructive pulmonary disease, unspecified COPD type ([facility]) Start: 11-26-2023 End: 11-26-2023 ambulatory [facility] Start: 11-21-2023 End: 11-21-2023 ambulatory Pfo Infusion Bed 1 Elida Ireland [facility] - Medical Oncology Comment on above: Hypomagnesemia (Prim fara Dx) Mixed hyperlipidemia (Primary Dx); Type 2 diabetes mellitus with stage 3b chronic kidney disease, with long-term current use of insulin ([facility]); Essential hypertension Start: 11-20-2023 Chart abstracting Felicity Ireland [facility] - Medical Oncology Start: 11-19-2023 End: 11-19-[address] [facility] Comment on above: Hypomagnesemia (Prim fara Dx) Start: 11-16-2023 End: 11-16-2023 ambulatory DO Fernie Furlong Work Phone: [facility] Work Phone: Start: 11-16-2023 End: 11-16-2023 Discharged Recurring DO Fernie Furlong Work Phone: [facility]-Infusion Therapy - O/P Work Phone: Start: 11-12-2023 Refill Fernie G Furlo ng DO Work Phone: [facility] Start: 08-23-2023 End: 08-23-2023 ambulatory Gia Tammy Other [employer] Other Start: 08-23-2023 Office outpatient vi sit 25 minutes Gia Tammy [facility] Start: 04-26-[address] FERNIE CLARK Fac ility:[facility] Start: 01-25-2023 End: 01-26-[address] LUISA STERN . [employer] Other Start: 01-25-2023 Office outpatient vi sit 25 minutes Gia Tammy [facility] Start: 01-15-2023 End: 01-16-2023 ambulatory GIA TAMMY Facility:[facility] Start: 12-06-2022 End: 12-06-2022 ambulatory [facility] Start: 11-09-2022 End: 11-10-[address] FERNIE CLARK Facility:[facility] Start: 10-26-2022 End: 10-27-[address] LUISA STERN . Facility:[facility] Start: 08-02-2022 End: 08-03-[address] LUISA STERN . Facility:[facility] Start: 07-20-2022 End: 07-20-2022 ambulatory Gia Tammy Other [employer] Other Start: 07-20-2022 Office outpatient vi sit 25 minutes Gia Tammy [facility] Start: 07-12-2022 End: 07-13-2022 ambulatory GIA TAMMY Facility:[facility] Start: 05-03-2022 End: 05-03-2022 ambulatory Gia Tammy Other [employer] Other Start: 05-03-2022 Telephone encounter Gia Tammy [facility] Start: 04-25-2022 End: 04-26-[address] LUISA STERN . Facility:[facility] Start: 04-06-2022 End: 04-06-2022 ambulatory Gia Tammy Other [employer] Other Start: 04-06-2022 Office outpatient vi sit 25 minutes Gia Tammy [facility] Start: 03-30-2022 End: 03-31-2022 ambulatory GIA TAMMY Facility:[facility] Start: 03-30-2022 End: 03-31-[address] LUISA STERN . Facility:[facility] Start: 12-27-2021 End: 12-27-2021 ambulatory Gia Tammy Other [employer] Other Start: 12-27-2021 Office outpatient vi sit 15 minutes Gia Tammy [facility] Start: 11-28-2021 End: 11-28-2021 ambulatory Gia Tammy Other [employer] Other Start: 11-28-2021 Telephone encounter Gia Tammy [facility] Start: 11-24-2021 End: 11-24-2021 ambulatory Gia Tammy Other [employer] Other Start: 11-24-2021 Telephone encounter Gia Tammy [facility] Start: 03-30-2021 End: 03-31-2021 ambulatory MOE PARHAM Facility:[facility] Procedures Date Procedure Procedure Detail Performing Clinician Start: 01-03-2025 Urine culture Fernie Juarez rlong DO Work Phone: Start: 11-20-2024 Urine culture Fernie Larry rlong DO Work Phone: Start: 05-27-2024 Urnls dip stick/tabl et rgnt non-auto w/o micrscp Fernie Jamarcus Msacorropoornima DO Work Phone: Start: 05-27-2024 Hemoglobin glycosyla jessica a1c Fernie Ricketts Tracyangel luis DO Work Phone: Start: 05-27-2024 Follow-up visit [...] Td Vaccines (2 - Td or Tdap) [facility] Start: 11-04-2025 Fall Risk Screening Fall Risk Screening [facility] Start: 10-07-2025 Fall Risk Screening Fall Risk Screening [facility] Start: 09-26-2025 Tobacco Screening Tobacco Screening [facility] Start: 08-27-2025 Adult BMI Screening Adult BMI Screening [facility] Start: 08-27-2025 Fall Risk Screening Fall Risk Screening [facility] Start: 08-20-2025 Adult BMI Screening Adult BMI Screening [facility] Start: 08-13-2025 Adult BMI Screening Adult BMI Screening [facility] Start: 08-06-2025 Tobacco Screening Tobacco Screening [facility] Start: 07-30-2025 Adult BMI Screening Adult BMI Screening [facility] Start: 07-30-2025 Tobacco Screening Tobacco Screening [facility] Start: 07-23-2025 Adult BMI Screening Adult BMI Screening [facility] Start: 07-16-2025 Adult BMI Screening Adult BMI Screening [facility] Start: 07-16-2025 Tobacco Screening Tobacco Screening [facility] Start: 07-09-2025 Adult BMI Screening Adult BMI Screening [facility] Start: 07-02-2025 Adult BMI Screening Adult [facility] Screening [facility] Start: 06-25-2025 Adult BMI Screening Adult BMI Screening [facility] Start: 06-25-2025 Tobacco Screening Tobacco Screening [facility] Start: 06-18-2025 Adult BMI Screening Adult BMI Screening [facility] Start: 06-18-2025 Tobacco Screening Tobacco Screening [facility] Start: 06-11-2025 Adult BMI Screening Adult BMI Screening [facility] Start: 06-11-2025 Tobacco Screening Tobacco Screening [facility] Start: 06-04-2025 Adult BMI Screening Adult [facility] Start: 06-04-2025 Tobacco Screening Tobacco Screening [facility] Start: 05-28-2025 Adult BMI Screening Adult [facility]ening [facility] Start: 05-28-2025 Tobacco Screening Tobacco Screening [facility] Start: 05-27-2025 Adult BMI Screening Adult BMI Screening [facility] Start: 05-27-2025 Depression Screening Depression Screening [facility] Start: 05-27-2025 Tobacco Screening Tobacco Screening [facility] Start: 05-14-2025 Adult BMI Screening Adult BMI Screening [facility] Start: 05-14-2025 Tobacco Screening Tobacco Screening [facility] Start: 05-07-2025 Adult BMI Screening Adult [facility] Screening [facility] Start: 05-07-2025 Fall Risk Screening Fall Risk Screening [facility] Start: 05-07-2025 Tobacco Screening Tobacco Screening [facility] Start: 04-30-2025 Adult BMI Screening Adult BMI Screening [facility] Start: 04-30-2025 Tobacco Screening Tobacco Screening [facility] Start: 04-23-2025 Adult BMI Screening Adult BMI Screening [facility] Start: 04-23-2025 Tobacco Screening Tobacco Screening [facility] Start: 04-09-2025 Adult BMI Screening Adult BMI Screening [facility] Start: 04-09-2025 Tobacco Screening Tobacco Screening [facility] Start: 04-02-2025 Adult BMI Screening Adult BMI Screening [facility] Start: 04-02-2025 Tobacco Screening Tobacco Screening [facility] Start: 03-26-2025 Adult BMI Screening Adult BMI Screening [facility] Start: 03-26-2025 Tobacco Screening Tobacco Screening [facility] Start: 03-19-2025 Adult BMI Screening Adult BMI Screening [facility] Start: 03-19-2025 Tobacco Screening Tobacco Screening [facility] Start: 03-12-2025 Adult BMI Screening Adult BMI Screening [facility] Start: 03-12-2025 End: 03-12-2025 Patient encounter procedure 03/12/2025 10:20 AM EDT Of fice Visit [facility] - [facility] Medicine [address] [place] [address] [facility] Start: 02-24-2025 Depression Screening Depression Screening [facility] Start: 02-24-2025 Fall Risk Screening Fall Risk Screening [facility] Start: 02-24-2025 Tobacco Screening Tobacco Screening [facility] Start: 02-12-2025 Adult BMI Screening Adult BMI Screening [facility] Start: 02-12-2025 Tobacco Screening Tobacco Screening [facility] Start: 02-05-2025 Adult BMI Screening Adult BMI Screening [facility] Start: 02-05-2025 Tobacco Screening Tobacco Screening [facility] Start: 01-29-2025 Adult BMI Screening Adult BMI Screening [facility] Start: 01-29-2025 Tobacco Screening Tobacco Screening [facility] Start: 01-22-2025 Adult BMI Screening Adult BMI Screening [facility] Start: 01-22-2025 Tobacco Screening Tobacco Screening [facility] Start: 01-15-2025 Adult BMI Screening Adult BMI Screening [facility] Start: 01-13-2025 End: 01-13-2025 Patient encounter procedure 01/13/2025 12:40 PM EST Of fice Visit [facility] - Family Medicine [address] [place] [address] [facility] Start: 01-09-2025 Adult BMI Screening Adult BMI Screening [facility] Start: 01-09-2025 Tobacco Screening Tobacco Screening [facility] Start: 01-08-2025 Bacteria identified in Urine by Culture Urine Culture [facility] Start: 01-08-2025 Depression Screening Depression Screening [facility] Start: 01-08-2025 Fall Risk Screening Fall Risk Screening [facility] Start: 01-08-2025 Medicare Annual Wellness Visit Medicare Annual Wellness Visi t [facility] Start: 01-08-2025 Urine culture [facility] Start: 01-03-2025 Urine culture [facility] Start: 01-03-2025 Bacteria identified in Urine by Culture Urine Culture [facility] Start: 01-02-2025 Tobacco Screening Tobacco Screening [facility] Start: 12-26-2024 Adult BMI Screening Adult BMI Screening [facility] Start: 12-26-2024 Tobacco Screening Tobacco Screening [facility] Start: 12-19-2024 Adult BMI Screening Adult BMI Screening [facility] Start: 12-19-2024 Tobacco Screening Tobacco Screening [facility] Start: 12-15-2024 End: 12-15-2024 Patient encounter procedure 12/15/2024 12:30 PM EST Procedure visit [facility] [address] [place] [address] Ton Urbano MD [address] [place] [address] [facility] Start: 12-12-2024 Adult BMI Screening Adult BMI Screening [facility] Start: 12-10-2024 End: 12-10-2024 ambulatory 12/10/2024 9:30 AM EST Infusion Elida Ireland [facility] - Medical Oncology [address] [place] [address] Elida [facility] Start: 12-05-2024 Adult BMI Screening Adult BMI Screening [facility] Start: 12-05-2024 Tobacco Screening Tobacco Screening [facility] Start: 12-04-2024 End: 12-04-2024 Patient encounter procedure 12/04/2024 1:30 PM EST Off ice Visit [facility] [address] [place] [address] Fernie Clark DO [address], [place] [address] [facility] Start: 12-03-2024 End: 12-03-2024 ambulatory 12/03/2024 9:30 AM EST Infusion Elida Ireland [facility] - [facility] Oncology [address] [place] [phone] Elida Ireland [facility] Start: 11-28-2024 Adult BMI Screening Adult BMI Screening [facility] Start: 11-28-2024 Tobacco Screening Tobacco Screening [facility] Start: 11-27-2024 End: 11-27-2024 Patient encounter procedure 11/27/2024 1:00 PM EST [facility] [address] [place] [address] Fernie Clark, DO [address] [facility] [place] [address] [facility] Start: 11-26-2024 Adult BMI Screening Adult BMI Screening [facility] Start: 11-26-2024 Depression Screening Depression Screening [facility] Start: 11-26-2024 Fall Risk Screening Fall Risk Screening [facility] Start: 11-26-2024 Tobacco Screening Tobacco Screening [facility] Start: 11-26-2024 End: 11-26-2024 ambulatory 11/26/2024 9:30 AM EST Infusion Elida Ireland [facility] Oncology [address] [place] [phone] Elida Ireland [facility] Oncology Start: 11-21-2024 Adult BMI Screening Adult BMI Screening [facility] Start: 11-20-2024 Bacteria identified in Urine by Culture Urine Culture [facility] Start: 11-20-2024 Urine culture [facility] Start: 11-18-2024 End: 11-18-2024 ambulatory 11/18/2024 11:30 AM EST Infusion Elida Ireland [facility]cology [address] [place] [address] Elida Ireland [facility] Start: 11-11-2024 End: 11-11-2024 ambulatory 11/11/2024 9:30 AM EST Infusion Elida Ireland [facility]cology [address] [place] [phone] Elida Ireland [facility] Start: 11-04-2024 End: 11-04-2024 ambulatory 11/04/2024 9:30 AM EST Infusion Elida Ireland [facility] [address] [place] [phone] Elida Ireland [facility] Start: 10-29-2024 End: 10-29-2024 ambulatory 10/29/2024 9:30 AM EST Infusion Elida Ireland [facility] [address] [place] [phone] Elida Ireland [facility] Start: 10-22-2024 End: 10-22-2024 ambulatory 10/22/2024 9:30 AM EST Infusion Elida Ireland [facility] [address] [place] [phone] Elida Ireland [facility] Start: 10-20-2024 Subsequent hospital visit by physician 10/20/2024 11:33 AM EST Hospital Encounter [facility] [address] [place] [address] Hypomagnesemia [facility] Comment on above: Hypomagnesemia Start: 10-18-2024 Adult BMI Screening Adult BMI Screening [facility] Start: 10-18-2024 Depression Screening Depression Screening [facility] Start: 10-18-2024 Tobacco Screening Tobacco Screening [facility] Start: 10-15-2024 End: 10-15-2024 ambulatory 10/15/2024 9:30 AM EST Infusion Elida Ireland [facility] Oncology [address] [place] [address] Elida Ireland [facility] Start: 10-08-2024 End: 10-08-2024 ambulatory 10/08/2024 9:30 AM EST Infusion Elida Ireland [facility] Oncology [address] [place] [phone] Elida Ireland [facility] Start: 10-07-2024 End: 10-07-2024 ambulatory 10/07/2024 9:30 AM EST Infusion Elida Ireland [facility] [address] [place] [phone] Elida Ireland [facility] Start: 10-01-2024 End: 10-01-2024 ambulatory 10/01/2024 9:30 AM EST Infusion Elida Ireland [facility] [address] [place] [phone] Elida Ireland [facility] Start: 09-26-2024 End: 09-26-2024 Admission to same day surgery center 09/26/2024 12:30 PM EST - 09/26/2024 1:30 PM EST Surgery [facility] - Endoscopy [address] [place] [address] Daniel Guerrero, DO [address] [place] [address] ESOPHAGOGASTRODUODENOSCOPY DIAGNOSTIC [41492 (CPT )] [facility] Comment on above: ESOPHAGOGASTRODUODENOSCOPY DIAGNOSTIC [4 3235 (CPT )] Start: 09-26-2024 End: 09-26-2024 Esophagogastroduodenoscopy transoral diagnostic ESOPHAGOGASTRODUODENOSCOPY DIAGNOSTIC ross's esophagus 09/26/2024 12:30 PM EST [facility] Start: 09-26-2024 Subsequent hospital visit by physician 09/26/2024 12:30 PM EST Hospital Encounter [facility] - Endoscopy [address] [place] [address] Daniel Guerrero, DO [address] [place] [address] [facility] Start: 09-25-2024 End: 09-25-2024 ambulatory 09/25/2024 3:40 PM EST Suppo rt Visit [facility] - Pre Admit [address] [place] [address] [facility] - Pre Admit Start: 09-24-2024 End: 09-24-2024 ambulatory 09/24/2024 9:30 AM EST Infusion Elida Ireland [facility]cology [facility] [place] [address] Elida Ireland [facility] Start: 09-17-2024 End: 09-17-2024 ambulatory 09/17/2024 9:30 AM EST Infusion Elida Ireland [facility] [place] [address] Elida Ireland [facility] Start: 09-10-2024 End: 09-10-2024 ambulatory 09/10/2024 9:30 AM EDT Infusion Elida Ireland [facility]cology [address] [place] [address] Elida [facility] Start: 09-03-2024 End: 09-03-2024 ambulatory 09/03/2024 9:30 AM EDT Infusion Elida Ireland [facility] [place] [address] Elida Ireland [facility] Start: 08-27-2024 End: 08-27-2024 ambulatory 08/27/2024 9:30 AM EDT Infusion Elida Ireland [facility]cology [address] [place] [address] Elida Acen [facility] Start: 08-20-2024 End: 08-20-2024 ambulatory 08/20/2024 9:30 AM EDT Infusion Elida Ireland [facility]cology [address] [place] [address] Elida Merritt Calaveras [facility] Start: 08-13-2024 End: 08-13-2024 ambulatory 08/13/2024 9:30 AM EDT Infusion Elida Ireland [facility]cology [address] [place] [phone] Elida L Calaveras [facility] Start: 08-06-2024 End: 08-06-2024 ambulatory 08/06/2024 9:30 AM EDT Infusion Elida Ireland [facility] [address] [place] [phone] Elida Ireland [facility] Start: 07-30-2024 End: 07-30-2024 ambulatory 07/30/2024 9:30 AM EDT Infusion Elida Ireland [facility] [address] [place] [phone] Elida Ireland [facility] Start: 07-24-2024 Fall Risk Screening Fall Risk Screening [facility] Start: 07-23-2024 End: 07-23-2024 ambulatory 07/23/2024 9:30 AM EDT Infusion Elida Ireland [facility] [address] [place] [phone] Elida L Beka [facility] Start: 07-16-2024 End: 07-16-2024 ambulatory 07/16/2024 9:30 AM EDT Infusion Elida L Beka [facility] [address] [place] [phone] Elida L Beka [facility] Start: 07-13-2024 COVID-19 Vaccine ( season) COVID-19 Vaccine () [facility] Start: 07-13-2024 COVID-19 Vaccine ( season) COVID-19 Vaccine () [facility] Start: 07-09-2024 End: 07-09-2024 ambulatory 07/09/2024 9:30 AM EDT Infusion Elida Ireland [facility]cology [address] [place] [address] Elida Ireland [facility] Start: 07-02-2024 End: 07-02-2024 ambulatory 07/02/2024 9:30 AM EDT Infusion Elida Ireland [facility] [address] [place] [phone] Elida Ireland [facility] Start: 06-25-2024 End: 06-25-2024 ambulatory 06/25/2024 9:30 AM EDT Infusion Elida René Beka [facility]cology [address] [place] [phone] Elida Ireland [facility] Start: 06-18-2024 End: 06-18-2024 ambulatory 06/18/2024 9:30 AM EDT Infusion Elida Ireland [facility] [address] [place] [phone] Elida Ireland [facility] Start: 06-11-2024 End: 06-11-2024 ambulatory 06/11/2024 9:30 AM EDT Infusion Elida Ireland [facility] [address] [place] [phone] Elida Ireland [facility] Start: 06-04-2024 End: 06-04-2024 ambulatory 06/04/2024 9:30 AM EDT Infusion Elida Ireland [facility] [address] [place] [phone] Elida Ireland [facility] Start: 05-28-2024 End: 05-28-2024 ambulatory 05/28/2024 9:30 AM EDT Infusion Elida Ireland [facility] [address] [place] [phone] Elida Ireland [facility] Start: 05-27-2024 End: 05-27-2024 Patient encounter procedure 05/27/2024 1:30 PM EDT Off ice Visit [facility] [address] [place] [address] Fernie Clark, DO [address] [place] [address] [facility] Start: 05-21-2024 End: 05-21-2024 ambulatory 05/21/2024 9:30 AM EDT Infusion Elida rIeland [facility] [address] [place] [phone] Elida Ireland [facility] Start: 05-14-2024 End: 05-14-2024 ambulatory 05/14/2024 9:30 AM EDT Infusion Elida Ireland [facility] [address] [place] [phone] Elida Acen [facility] Start: 05-07-2024 End: 05-07-2024 ambulatory 05/07/2024 9:30 AM EDT Infusion Elidarudolph Ireland [facility] [address] [place] [phone] Elida L Beka [facility] Start: 04-30-2024 End: 04-30-2024 ambulatory 04/30/2024 9:30 AM EDT Infusion Elida L Beka [facility] [address] [place] [phone] Elida L Beka [facility] Start: 04-23-2024 End: 04-23-2024 ambulatory 04/23/2024 9:30 AM EDT Infusion Elida L Beka [facility]cology [address] [place] [address] Elida Ireland [facility] Start: 04-16-2024 End: 04-16-2024 ambulatory 04/16/2024 9:30 AM EDT Infusion Elida René Beka [facility]cology [address] [place] [phone] Elida Ireland [facility] Start: 04-09-2024 End: 04-09-2024 ambulatory 04/09/2024 9:30 AM EDT Infusion Elida René Beka [facility] [address] [place] [phone] Elida Ireland [facility] Start: 04-02-2024 End: 04-02-2024 ambulatory 04/02/2024 9:30 AM EDT Infusion Elida Ireland [facility] [address] [place] [phone] Elida Ireland [facility] Start: 03-26-2024 End: 03-26-2024 ambulatory 03/26/2024 9:30 AM EDT Infusion Elida René Beka [facility] [address] [place] [phone] Elida Ireland [facility] Start: 03-19-2024 End: 03-19-2024 ambulatory 03/19/2024 9:30 AM EDT Infusion Elida René Beka [facility] [address] [place] [phone] Elida [facility] Start: 03-05-2024 End: 03-05-2024 ambulatory 03/05/2024 9:30 AM EDT Infusion Elida Ireland [facility]cology [address] [place] [phone] Elida Ireland [facility] Start: 02-27-2024 End: 02-27-2024 ambulatory 02/27/2024 9:30 AM EDT Infusion Elida L Beka [facility] [address] [place] [phone] Elida René Ireland [facility] Start: 02-25-2024 End: 02-25-2024 Patient encounter procedure 02/25/2024 2:45 PM EDT Off ice Visit [facility] [address] [place] [address] Fernie Clark, [address] [address], [place] [address] [facility] Start: 02-20-2024 End: 02-20-2024 ambulatory 02/20/2024 9:30 AM EDT Infusion Elida Irleand [facility] [address] [place] [phone] Elida L Beka [facility] Start: 02-13-2024 End: 02-13-2024 ambulatory 02/13/2024 9:30 AM EDT Infusion Elida René Beka [facility] [address] [place] [phone] Elida L Beka [facility] Start: 02-06-2024 End: 02-06-2024 ambulatory 02/06/2024 9:30 AM EDT Infusion Elida René Beka [facility] [address] [place] [phone] Elida Ireland [facility] Start: 01-30-2024 End: 01-30-2024 ambulatory 01/30/2024 9:30 AM EDT Infusion Elida Ireland [facility] [address] [place] [phone] Elida Ireland [facility] Start: 01-23-2024 End: 01-23-2024 ambulatory 01/23/2024 9:30 AM EDT Infusion Elida Ireland [facility] [address] [place] [address] Elida Ireland [facility] Start: 01-16-2024 End: 01-16-2024 ambulatory 01/16/2024 9:30 AM EST Infusion Elida Ireland [facility] [address] [place] [phone] Elida Ireland [facility] Start: 01-09-2024 End: 01-09-2024 ambulatory 01/09/2024 9:30 AM EST Infusion Elida Ireland [facility] [address] [place] [phone] Elida Ireland [facility] Start: 01-08-2024 End: 01-08-2024 Patient encounter procedure 01/08/2024 1:00 PM EST Off ice Visit [facility] [address] [place] [address] [facility] Start: 01-02-2024 End: 01-02-2024 ambulatory 01/02/2024 9:30 AM EST Infusion Elida Ireland [facility] [address] [place] [phone] Elida Ireland [facility] Start: 12-26-2023 End: 12-26-2023 ambulatory 12/26/2023 9:30 AM EST Infusion Elida Ireland [facility] [address] [place] [phone] Elida Ireland [facility] Start: 12-19-2023 End: 12-19-2023 ambulatory 12/19/2023 9:30 AM EST Infusion Elida Ireland [facility] [address] [place] [phone] Elida Ireland [facility] Start: 12-12-2023 Administration of varicella zoster vaccine Zoster (Shingles) Vaccine (1 of 2) [facility] Comment on above: Postponed from 03/12/2015 (Patient Refus ed) Start: 12-12-2023 Medicare Annual Wellness Visit Medicare Annual Wellness Visi t [facility] Start: 12-12-2023 End: 12-12-2023 ambulatory 12/12/2023 9:30 AM EST Infusion Elida Ireland [facility] [address] [place] [phone] Elida Merritt Calaveras [facility] Start: 12-05-2023 End: 12-05-2023 ambulatory 12/05/2023 9:30 AM EST Infusion Elida Ireland [facility] Oncology [address] [place] [phone] Elida Ireland [facility] Start: 11-28-2023 End: 11-28-2023 ambulatory 11/28/2023 9:30 AM EST Infusion Elida Ireland [facility] Medical Oncology [address] [place] [phone] Elida Ireland [facility] Start: 11-26-2023 End: 11-26-2023 Patient encounter procedure 11/26/2023 1:30 PM EST Off ice Visit [facility] [address] [place] [address] Fernie Clark, DO [address], [facility] [place] [address] [facility] Start: 11-21-2023 End: 11-21-2023 ambulatory 11/21/2023 9:30 AM EST Infusion Elida Ireland [facility] [address] [place] [phone] Elida L Calaveras [facility] Start: 07-13-2023 COVID-19 Vaccine ( season) COVID-19 Vaccine () [facility] Start: 03-12-2015 Administration of varicella zoster vaccine Zoster (Shingles) Vaccine (1 of 2) [facility] Start: 1960 Adult BMI Follow Up Plan Adult BMI Follow Up Plan [facility] End: 05-27-2025 Bacteria identified in Urine by Culture Urine culture (clean catch) Microbiology Routine Dysuria 1 Occurrences starting 05/27/2024 until 05/27/2025 [facility] Work Phone: Comment on above: 1 Occurrences starting 05/27/2024 until 05/27/2025 End: 11-21-2024 Comprehensive metabolic 2000 panel - Serum or Plasma Comprehensive metabolic panel Lab Routine Essential hypertension 1 Occurrences starting 11/21/2023 until 11/21/2024 [employer] [facility] Work Phone: Comment on above: 1 Occurrences starting 11/21/2023 until 11/21/2024 End: 09-04-2025 EMG EMG Neurology Routine Paresthesia of right lower extremity 1 Occurrences starting 09/04/2024 until 09/04/2025 [facility] Work Phone: Comment on above: 1 Occurrences starting 09/04/2024 until 09/04/2025 End: 09-04-2025 Esophagogastroduodenoscopy EGD GI Routine Ross's esophagus with dysplasia 1 Occurrences starting 09/04/2024 until 09/04/2025 [facility] Comment on above: 1 Occurrences starting 09/04/2024 until 09/04/2025 Esophagogastroduoden oscopy transoral diagnostic ESOPHAGOGASTRODUODENOSCOPY DIAGNOSTIC 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 [facility] End: 11-21-2024 Hemoglobin A1c/Hemoglobin.total in Blood Hemoglobin A1c Lab Routine Type 2 diabetes mellitus with stage 3b chronic kidney disease, with long-term current use of insulin ([facility]) 1 Occurrences starting 11/21/2023 until 11/21/2024 [facility] Comment on above: 1 Occurrences starting 11/21/2023 until 11/21/2024 End: 11-21-2024 Lipid panel Lipid panel Lab Routine Mixe d hyperlipidemia 1 Occurrences starting 11/21/2023 until 11/21/2024 [facility] Comment on above: 1 Occurrences starting 11/21/2023 until 11/21/2024 End: 11-18-2025 Magnesium [Mass/volume] in Serum or Plasma Magnesium Lab Routine Hypomagnesemia weekly for 52 Occurrences starting 11/18/2024 until 11/18/2025 [facility] Work Phone: Comment on above: weekly for 52 Occurrences starting 11/18 until 11/18/2025 End: 11-19-2024 Magnesium [Mass/volume] in Serum or Plasma Magnesium Lab STAT Hypomagnesemia weekly for 52 Occurrences starting 11/19/2023 until 11/19/2024 [facility] Work Phone: Comment on above: weekly for 52 Occurrences starting 11/19 until 11/19/2024 End: 11-21-2024 Microalbumin - Albumin: Creatinine Urine Ratio Microalbumin - Albumin: Creatinine Urine Ratio Lab Routine Type 2 diabetes mellitus with stage 3b chronic kidney disease, with long-term current use of insulin (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) 1 Occurrences starting 01/17/2024 until 01/16/2025 [facility] Work Phone: Comment on above: 1 Occurrences starting 01/17/2024 until 01/16/2025 Renal function 2000 panel - Serum or Plasma [facility] Immunizations Immunization Date Immunization Notes Care Provider Fa cili 08-31-2021 Influenza, High-dose , Quadrivalent Fernie Furlong DO Work Phone: [facility] 02-01-2021 COVID-19, mRNA, LNP- S, PF, 30mcg/0.3mL Dose Fernie Furlong DO Work Phone: [facility] 01-10-2021 COVID-19, mRNA, LNP- S, PF, 30mcg/0.3mL Dose Fernie Furlong DO Work Phone: [facility] 07-29-2020 influenza, high dose seasonal, preservative-free Fernie Furlong DO Work Phone: [facility] 09-03-2019 influenza, high dose seasonal, preservative-free Fernie Furlong DO Work Phone: [facility] 09-30-2018 tetanus toxoid, redu kiran diphtheria toxoid, and acellular pertussis vaccine, adsorbed Fernie Furlong DO Work Phone: [facility] 09-19-2018 influenza, high dose seasonal, preservative-free Fernie Furlong DO Work Phone: [facility] 09-03-2017 influenza virus vacc ine, unspecified formulation Fernie Furlong DO Work Phone: [facility] 07-27-2015 influenza, seasonal, injectable, preservative free Fernie Furlong DO Work Phone: [facility] 07-27-2015 seasonal influenza, intradermal, preservative free Fernie Furlong DO Work Phone: [facility] 01-15-2015 zoster vaccine, live Fernie Furlong DO Work Phone: [facility] 01-15-2015 zoster vaccine, unspecified formulation Fernie Furlong DO Work Phone: [facility] 07-16-2014 influenza, seasonal, injectable Fernie Furlong DO Work Phone: [facility] 10-20-2013 pneumococcal conjuga te vaccine, 13 valent Fernie Furlong DO Work Phone: [facility] 08-30-2011 tetanus and diphther ia toxoids, not adsorbed, for adult use Fernie Molinalong DO Work Phone: [facility] 08-20-2008 pneumococcal polysaccharide vaccine, 23 valent Fernie Furlong DO Work Phone: [facility] Payers Date Payer Category Payer Unknown 11-12-2015 Managed Care Other (unspecified) [facility] [id number] 11-12-2015 Private Health Insurance [facility] AAR SUPPLEMENT [id number] 11/12/2015-Present [phone] [address] [place] [address] [id number] 09-12-2007 Medicare [id number] 11-12-1959 Medicare [id number] 11-12-1959 Unknown [id number] 1942 Unknown [id number] 2.16.840.1.624909.3.579.2 .647 1942 Unknown [id number] 2.16.840.1.850915.3.579.2 .593 1942 Unknown [id number] 2.16.840.1.110396.3.579.2 .593 1942 Unknown [id number] 2.16.840.1.927818.3.579.2 .593 1942 Unknown [id number] 2.16.840.1.897786.3.579.2 .593 1942 Unknown [id number] 2.16.840.1.648677.3.579.2 .593 1942 Unknown [id number] 2.16.840.1.104310.3.579.2 .593 1942 Unknown [id number] 2.16.840.1.409170.3.579.2 .593 1942 Unknown [id number] 2.16.840.1.670247.3.579.2 .593 1942 Unknown [id number] 2.16.840.1.480033.3.579.2 .593 1942 Unknown [id number] 2.16.840.1.976026.3.579.2 .593 1942 Unknown [id number] 2.16.840.1.728072.3.579.2 .593 1942 Unknown [id number] 2.16840.1.700161.3.579.2 .1286 1942 Unknown [id number] 2.16.840.1.117528.3.579.2 .1286 1942 Unknown [id number] 2.16.840.1.722604.3.579.2 .1286 1942 Unknown [id number] 2.16.840.1.271380.3.579.2 .196 1942 Unknown [id number] 2.16840.1.162307.3.579.2 .196 1942 Unknown [id number] 2.16.840.1.424864.3.579.2 .196 1942 Unknown [id number] 2.16.840.1.701320.3.579.2 .196 1942 Unknown [id number] 2.16.840.1.662095.3.579.2 .1286 1942 Unknown [id number] 2.16.840.1.386549.3.579.2 .1286 1942 Unknown [id number] 2.16.840.1.418567.3.579.2 .1285 1942 Unknown [id number] 2.840.1.735706.3.579.2 .1285 1942 Unknown [id number] 2.16840.1.320474.3.579.2 .1285 1942 Unknown [id number] 2.840.1.605135.3.579.2 .1285 1942 Unknown [id number] 2.840.1.609828.3.579.2 .1285 1942 Unknown [id number] 2.840.1.700348.3.579.2 .1285 1942 Unknown [id number] 2.840.1.963202.3.579.2 .1285 1942 Unknown [id number] 2.840.1.875639.3.579.2 .1285 1942 Unknown [id number] 2.840.1.503557.3.579.2 .1285 1942 Unknown [id number] 2.840.1.918474.3.579.2 .1285 1942 Unknown [id number] 2.840.1.487548.3.579.2 .1285 1942 Unknown [id number] 2.840.1.666063.3.579.2 .1285 1942 Unknown [id number] 2.840.1.106591.3.579.2 .1285 1942 Unknown [id number] 2.840.1.733574.3.579.2 .1285 1942 Unknown [id number] 2.840.1.540770.3.579.2 .1285 1942 Unknown [id number] 2.16.840.1.714406.3.579.2 .128 1942 Unknown [id number] 2.16.840.1.822329.3.579.2 .1285 1942 Unknown [id number] 2.16.840.1.682247.3.579.2 .1285 1942 Unknown [id number] 2.16.840.1.049254.3.579.2 .1285 1942 Unknown [id number] 2.16.840.1.199486.3.579.2 .1285 1942 Unknown [id number] 2.16840.1.164266.3.579.2 .1285 1942 Unknown [id number] 2.840.1.637601.3.579.2 .1285 1942 Unknown [id number] 2.840.1.726446.3.579.2 .1285 1942 Unknown [id number] 2.16840.1.618263.3.579.2 .1285 1942 Unknown [id number] 2.840.1.994566.3.579.2 .1285 1942 Unknown [id number] 2.840.1.976353.3.579.2 .1285 1942 Unknown [id number] 2.16840.1.428010.3.579.2 .1285 1942 Unknown [id number] 2.16.840.1.236365.3.579.2 .1285 1942 Unknown [id number] 2.16.840.1.390987.3.579.2 .1285 1942 Unknown [id number] 2.16.840.1.823055.3.579.2 .1285 1942 Unknown [id number] 2.16.840.1.264426.3.579.2 .1285 1942 Unknown [id number] 2.16.840.1.041388.3.579.2 .1285 1942 Unknown [id number] 2.16.840.1.041654.3.579.2 .1285 1942 Unknown [id number] 2.16.840.1.370059.3.579.2 .1285 1942 Unknown [id number] 2.16.840.1.193986.3.579.2 .1285 1942 Unknown [id number] 2.16840.1.167601.3.579.2 .1285 1942 Unknown [id number] 2.16840.1.913651.3.579.2 .1285 1942 Unknown [id number] 2.840.1.329764.3.579.2 .1285 1942 Unknown [id number] 2.16840.1.819895.3.579.2 .1285 1942 Unknown [id number] 2.840.1.645414.3.579.2 .1285 1942 Unknown [id number] 2.16840.1.000391.3.579.2 .1285 1942 Unknown [id number] 2.840.1.771272.3.579.2 .1285 1942 Unknown [id number] 2.16840.1.732803.3.579.2 .1285 1942 Unknown [id number] 2.16.840.1.917932.3.579.2 .1285 1942 Unknown [id number] 2.16840.1.407856.3.579.2 .1285 1942 Unknown [id number] 2.16.840.1.836968.3.579.2 .1285 1942 Unknown [id number] 2.16.840.1.670363.3.579.2 .1285 1942 Unknown [id number] 2.16.840.1.304509.3.579.2 .1285 1942 Unknown [id number] 2.16.840.1.430923.3.579.2 .1285 1942 Unknown [id number] 2.16.840.1.090820.3.579.2 .1285 1942 Unknown [id number] 2.16.840.1.313438.3.579.2 .1285 1942 Unknown [id number] 2.16840.1.243614.3.579.2 .1285 1942 Unknown [id number] 2.840.1.514449.3.579.2 .1285 1942 Unknown [id number] 2.16840.1.572458.3.579.2 .1285 1942 Unknown [id number] 2.840.1.120601.3.579.2 .1285 1942 Unknown [id number] 2.16.840.1.812481.3.579.2 .1285 1942 Unknown [id number] 2.840.1.821855.3.579.2 .1285 1942 Unknown [id number] 2.16.840.1.302798.3.579.2 .1285 1942 Unknown [id number] 2.16.840.1.997290.3.579.2 .1285 1942 Unknown [id number] 2.16.840.1.710789.3.579.2 .1285 1942 Unknown [id number] 2.16.840.1.785108.3.579.2 .1285 1942 Unknown [id number] 2.16.840.1.810560.3.579.2 .1285 1942 Unknown [id number] 2.16.840.1.239658.3.579.2 .1285 1942 Unknown [id number] 2.16.840.1.373866.3.579.2 .1285 1942 Unknown [id number] 2.16.840.1.430618.3.579.2 .1285 1942 Unknown [id number] 2.16.840.1.564235.3.579.2 .1285 1942 Unknown [id number] 2.16.840.1.708579.3.579.2 .1285 1942 Unknown [id number] 2.16.840.1.723894.3.579.2 .1285 1942 Unknown [id number] 2.16.840.1.367265.3.579.2 .1285 1942 Unknown [id number] 2.16.840.1.590123.3.579.2 .1285 1942 Unknown [id number] 2.16.840.1.589684.3.579.2 .1285 1942 Unknown [id number] 2.16.840.1.016224.3.579.2 .1285 1942 Unknown [id number] 2.16.840.1.944583.3.579.2 .1285 1942 Unknown [id number] 2.16.840.1.432111.3.579.2 .1285 1942 Unknown [id number] 2.16.840.1.069982.3.579.2 .1285 1942 Unknown [id number] 2.16.840.1.310186.3.579.2 .1285 1942 Unknown [id number] 2.16.840.1.830231.3.579.2 .128 1942 Unknown [id number] 2.16.840.1.560185.3.579.2 .1285 1942 Unknown [id number] 2.16.840.1.582128.3.579.2 .1285 1942 Unknown [id number] 2.16.840.1.104396.3.579.2 .1285 1942 Unknown [id number] 2.16.840.1.115122.3.579.2 .1285 1942 Unknown [id number] 2.16.840.1.509950.3.579.2 .1285 1942 Unknown [id number] 2.16.840.1.602862.3.579.2 .1285 1942 Unknown [id number] 2.16.840.1.497794.3.579.2 .1285 1942 Unknown [id number] 2.16.840.1.840336.3.579.2 .1285 1942 Unknown [id number] 2.16.840.1.619775.3.579.2 .1285 1942 Unknown [id number] 2.16.840.1.221156.3.579.2 .1285 1942 Unknown [id number] 2.16.840.1.947816.3.579.2 .1285 1942 Unknown [id number] 2.16.840.1.542050.3.579.2 .1285 1942 Unknown [id number] 2.16.840.1.950151.3.579.2 .1285 1942 Unknown [id number] 2.16.840.1.889066.3.579.2 .1285 1942 Unknown [id number] 2.16.840.1.921014.3.579.2 .1285 1942 Unknown [id number] 2.16.840.1.341796.3.579.2 .1286 1942 Unknown [id number] 2.16.840.1.073787.3.579.2 .1286 1942 Unknown [id number] 2.16.840.1.431904.3.579.2 .1286 Private Health Insurance [facility] [id number] Self-pay Self Pay [id number] Social History Date Type Detail Facility Unknown if ever smoked [employer] [facility] Start: 01-08-2024 End: 08-06-[address] [facility] 1940 [facility]igned [facility] Start: 05-04-2017 End: 05-01-2024 Tobacco smoking status NHIS Never smoked tobacco (finding) [facility] Start: 05-04-2017 Tobacco use and exposure Smokeless tobacco non-user [facility] Start: 09-26-2024 End: 09-30-2024 Alcoholic beverage intake Ex-drinker (finding) [facility] Start: 01-08-2024 End: 08-06-2024 History of [address] [facility] Has the [facility], or [facility] threatened to shut off services in your home in past 12Mo No [facility] Are you now , , , , never or living with a partner? [facility] How often to you hav e a drink containing alcohol? Never [facility] How many standard drinks containing alcohol do you have on a typical day? Patient does not drink [facility] Do you feel stress - tense, restless, nervous, or anxious, or unable to sleep at night because your mind is troubled all the time - these days [OSQ] Not at all [facility] Start: 1940 Sex assigned at Not on file [facility] Start: 06-17-2015 End: 01-09-2025 [facility] (finding[facility] Start: 10-18-2023 End: 09-10-2024 Alcohol intake [facility]finding[facility] Medical Equipment Procedure Code Equipment Code Equipment Origin al Text Equipment Identifier Dates 1 strip by other route in the morning and 1 strip before bedtime. [id number] Start: 08-30-2023 End: 11-18-2024 1 Lancet. by miscellaneous route in the morning and 1 Lancet. before bedtime. [id number] Start: 08-30-2023 USE 1 NEEDLE THR EE TIMES A DAY [id number] Start: 07-17-2024 1 strip by other route in the morning and 1 strip before bedtime. [id number] Start: 11-18-2024 USE 1 NEEDLE THR EE TIMES A DAY [id number] Start: 07-23-2023 End: 07-17-2024 Clinical Notes 12-27-2021 to 01-09-2025 Fernie Clark, - 01/09/2025 11:59 PM ESTTelephone Encounter - Mercedes Carmelo - 01/03/2025 8:47 PM ESTTelephone Encounter - Mercedes Rhodes - 01/03/2025 8:47 PM EST Note Date & Type Note Facility 01-09-2025 History of Presen t illness Narrative Images from the original note were not included. Patient Name: Adore Wolff Date of : 1940 Date of Service: 01/09/2025 Facility: [facility] Type of Visit: Subsequent Visit Subjective Adore Wolff is a 84 y.o. female [facility]. Adore has been in and out of the hospital over the last couple weeks. Once was for confusion and diagnosed with UTI. She then had chest and neck pain and sent out again. She came back with cephalexin and prednisone for 7 days. She thinks they told her it was her neck and back causing pain. She did participate in therapy today. She is weak. She does say she is having trouble with her memory. She isn't sure what medications she is taking and she would like to know. Her meds are now being crushed since coming back from the hospital. She is in speech therapy now too. Allergies: Adhesive, Adhesive tape-silicones, Betadine [povidone-iodine], Red dye, Sulfa (sulfonamide antibiotics), Sulfa dyne, Tetracyclines, Diltiazem, and Linagliptin Code Status: DNC-A BP 169/87 Pulse 53 Resp 18 SpO2 98% Physical Exam Vitals reviewed. Constitutional: General: She is not in acute distress. Comments: In bed. Cardiovascular: Rate and Rhythm: Regular rhythm. Bradycardia present. Heart sounds: Normal heart sounds. Pulmonary: Effort: Pulmonary effort is normal. No respiratory distress. Breath sounds: Normal breath sounds. No wheezing, rhonchi or rales. Abdominal: General: Bowel sounds are normal. Palpations: Abdomen is soft. Tenderness: There is no abdominal tenderness. Musculoskeletal: Lumbar back: Spasms and tenderness present. Back: Right lower le+ Edema present. Left lower le+ Edema present. Comments: nonpitting Psychiatric: Mood and Affect: Mood normal. Behavior: Behavior is cooperative. Comments: Pleasant Summary / Assessment / Plan 1. Metabolic encephalopathy 2. Urinary tract infection with hematuria, site unspecified 3. Chronic neck pain 4. Chronic left-sided thoracic back pain 5. 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 Will also stopped the atorvastatin now to see if it helps her myalgias/chronic pain Arrange for follow-up evaluation with [employer] project manager. Follow up with Cardiology. I believe she has an appointment January 29. Will see how she does with speech therapy to see if she can swallow pills. Okay for freestyle or Dexcom to monitor blood glucose levels. Hospital records reviewed. Continue current therapy. ELECTRONICALLY SIGNED BY: Fernie Clark DO documented in this encounter [facility] 01-03-2025 Miscellaneous Notes Contract: 198 Shan Nair re not responding appropriately, not registering well Relayed info to Dr Clark on cell and transferred documented in this encounter [facility] 01-03-2025 Telephone encounter Note Contract: 198 Shan Nair re not responding appropriately, not registering well Relayed info to Dr Clark on cell and transferred [facility] 01-03-2025 Miscellaneous Notes Contract: 198 Shan of Eric RE Notifying Doctor of Status Condition not eating or drinking high blood pressure and sleeping more than normal Contract: [address] Clark and Left message to call [facility] Dr. Clark returned page and was connected to the caller. documented in this encounter [facility] 01-03-2025 Telephone encounter Note Contract: 198 Jemima RE Notifying Doctor of Status Condition not eating or drinking high blood pressure and sleeping more than normal [facility] 01-03-2025 Telephone encounter Note Contract: [address] Clark and Left message to call [facility] 01-03-[address] Clark returned page and was connected to the caller. [facility] 12-26-2024 History of Presen t illness Narrative Images from the original note were not included. Patient Name: Adore Wolff Date of : 1940 Date of Service: 12/26/2024 Facility: [facility] [place] [place] Type of Visit: Skilled Visit Subjective Adore Wolff is a 84 y.o. female [facility]. Adore has several [...] Diltiazem, and Linagliptin Code Status: DNC-A Objective BP 178/78 Pulse 64 Temp 36.5 [...] Fernie Clark DO documented in this encounter [facility] 12-19-2024 History of Presen t illness Narrative Patient Name: Adore Wolff Date of : 1940 Date of Service: 12/19/2024 Facility: [facility] Type of Visit: Skilled Visit Subjective Adore Wolff is a 84 y.o. female [facility] for [facility] visit. Adore is having [...] Fernie Clark DO documented in this encounter [facility] 12-18-2024 Miscellaneous Notes NEW EMG / NCV ORDER 1st attempt: Repairer Cylinder Heads contacted patient's spouse and informed him that we have received patient's EMG order. Spouse stated that he is not interested in scheduling at this time, as the patient is currently in a rehab facility but will call back if anything should change. Repairer Cylinder Heads reassured him that their referral is valid for up to one year should he change his mind - he stated understanding. [facility] Tele[facility] encounter Note NEW EMG / NCV ORDER 1st attempt: Repairer Cylinder Heads contacted patient's spouse and informed him that we have received patient's EMG order. Spouse stated that he is not interested in scheduling at this time, as the patient is currently in a rehab facility but will call back if anything should change. Repairer Cylinder Heads reassured him that their referral is valid for up to one year should he change his mind - he stated understanding. [facility] 12-02-2024 Miscellaneous Notes Fanny the nurse at the [facility] called and stated you were in yesterday evening and stated they had aske for a refill for tramodol and the lyrica be sent to [facility] pharmacy. Also you had discontinued the [...] in a prescription to [facility] in [place]. If it is a different [facility] then I need to resend it somewhere else Spoke with Fanny and she will follow up with Pharmacy documented in this encounter [facility] 12-02-2024 Telephone encounter Note Fanny the nurse at the [facility] called and stated you were in yesterday evening and stated they had aske for a refill for tramodol and the lyrica be sent to [facility] pharmacy. Also you had discontinued the trazadone and never put an order in. Do you still want this D/C? If so did you want something in replace of it? Also she is very lethargic today. [facility] Tele[facility] encounter Note It could not find any order sheets so I gave a verbal order to stop the trazodone to the nurse. I also asked her if she needed any of her controlled substances and she said no. I did send in a prescription to [facility] in [place]. If it is a different [facility] then I need to resend it somewhere [facility] Telephone encounter Note Spoke with Fanny and she will follow up with Pharmacy [facility] Miscellaneous Notes Contract: [id number] Joanie Milan called for orders to have patient sent to hospital for evaluation [id number] I called Dr Clark & transferred him to Joanie [place] [facility] Telephone encounter Note Contract: [id number] Joanie [address] [place]ou[place] called for orders to have patient sent to hospital for [facility] Telephone encounter Note [id number] I called Dr Clark & transferred him to Joanie Pelayo Fouzia [facility] 11-24-2024 History of Presen t illness Narrative Patient's spouse called [facility] nurse this morning with concerns about [...] possible. Please advise. documented in this encounter [facility] 11-24-2024 Miscellaneous Notes Patient's spouse called [facility] nurse this morning with concerns about [...] be septic Notified documented in this encounter [facility] 11-24-2024 Telephone encounter Note Patient's spouse [...] today by PCP if possible. Please advise. [facility] 11-24-2024 Telephone encounter Note She has altered mental status she should go to the emergency room. She could be septic [facility] 11-24-2024 Telephone encounter Note Not[address] [facility] 11-17-2024 History of Presen t illness Narrative Diabetic Supplies: After numerous attempts by and JARON we have been unable to get in touch with [facility] regarding patient diabetes supplies. Patient is currently out of test strips and would like order sent to new DME supplier. Could you please fax order to [facility] for [employer] meter and strips. Fax number: [phone]. [facility] Chronic Care Nurse Behavioral Health Counselor [phone] documented in this encounter [facility] 11-17-2024 Miscellaneous Notes Diabetic Supplies: After numerous attempts by and JARON we have been unable to get in touch with [facility] regarding patient diabetes supplies. Patient is currently out of test strips and would like order sent to new DME supplier. Could you please fax order to [facility] for [employer] meter and strips. Fax number: [phone]. [facility] Chronic Care Nurse Behavioral Health Counselor [phone] Please fax to [place]. Prescriptions were printed documented in this encounter [facility] 11-17-2024 Telephone encounter Note Diabetic Supplies: After numerous attempts by and JARON we have been unable to get in touch with [facility] regarding patient diabetes supplies. Patient is currently out of test strips and would like order sent to new DME supplier. Could you please fax order to [facility] for [employer] meter and strips. Fax number: [phone]. [facility] Primary [facility] Chronic Care Nurse Behavioral Health Counselor [phone] [facility] 11-17-2024 Telephone encounter Note Please fax to [place]. Prescriptions were printed [facility] 11-04-2024 History of Presen t illness Narrative Patient is here for 2g IV magnesium as scheduled. Mg level 1.7. PIV initiated, blood return noted, flushes with ease. NS started at KVO. Magnesium infused over 2 hours. Line flushed. Pt tolerated well. PIV dc'd, pressure dressing applied. Pt dc'd in stable ambulatory condition with spouse. documented in this encounter [facility] 10-20-2024 History of Presen t illness Narrative Patient mag level is 1.9, will not need magnesium infusion this week. Patient made aware and will continue on with next week's lab draw. documented in this encounter [facility] 10-07-2024 Miscellaneous Notes Call patient and see if she requested this. It was stopped in the summertime documented in this encounter [facility] 10-07-2024 Telephone encounter Note Call patient and see if she requested this. It was stopped in the summertime [facility] 10-07-2024 History of Presen t illness Narrative Patient is here for 2g IV magnesium as scheduled. Mg level 1.7. PIV initiated, blood return noted, flushes with ease. NS started at KVO. Magnesium infused over 2 hours. Line flushed. Pt tolerated well. PIV dc'd, pressure dressing applied. Pt dc'd in stable ambulatory condition with spouse. documented in this encounter [facility] 10-01-2024 History of Presen t illness [...] updated treatment calendar. documented in this encounter [facility] 09-10-2024 Miscellaneous Notes NEW EMG/NCV ORDER First attempt- Left Voicemail Dx: Paresthesia of right lower extremity [R20.2]/ Referred by: Fernie Clark DO Referred to: Please schedule patient in the next available appointment with provider. Patient returned call and patient was scheduled for next available EMG in [place]. Patient was placed on waitlist. Appointment: 12/15/2024 at 12:30pm with Dr. Urbano documented in this encounter [facility] 09-10-2024 Telephone encounter Note NEW EMG/NCV ORDER First attempt- Left Voicemail Dx: Paresthesia of right lower extremity [R20.2]/ Referred by: Fernie Clark DO Referred to: Please schedule patient in the next available appointment with provider. [facility] 09-10-2024 Telephone encounter Note Patient returned call and patient was scheduled for next available EMG in [place]. Patient was placed on waitlist. Appointment: 12/15/2024 at 12:30pm with Dr. Urbano [facility] 09-10-2024 History of Presen t illness Narrative Pt here for 2g IV magnesium. Mg level 1.7. PIV initiated to RFA. Brisk blood return verified, and flushes with ease. Magnesium infused over 2 hours without incident. Pt tolerated well. Flushed with saline and PIV dc'd. Pt dc'd in stable ambulatory condition. documented in this encounter [facility] 09-01-2024 History of Presen t illness Narrative Pt magnesium level 1.8. called to notify patient to see if shed like to notify dr [facility] office to see if she should still get mg infusion since she's WNL. Pt requests to take the week off and recheck mg level in one week. documented in this encounter [facility] 08-27-2024 History of Presen t illness Narrative Patient is here for 2g IV magnesium as scheduled. Mg level 1.6. PIV initiated, blood return noted, flushes with ease. NS started at KVO. Magnesium infused over 2 hours. Line flushed. Pt tolerated well. PIV dc'd, pressure dressing applied. Pt dc'd in stable ambulatory condition with spouse. documented in this encounter [facility] 08-22-2024 History of Presen t illness Narrative When was the last Refill? 05/27/24 Is this medication Historical? [place] of preferred Pharmacy? [facility] When was the last OV with provider? 05/27/24 When is the next scheduled visit? 11/27/24 [address] in this encounter [facility] 08-20-2024 History of Presen t illness Narrative Pt here for 2g IV magnesium. Mg level 1.6. PIV initiated to RFA. Brisk blood return noted, flushes with ease. Magnesium infused over 2 hours. Line flushed. Pt tolerated well. PIV dc'd. Pressure dressing applied. Dc'd in stable ambulatory condition. documented in this encounter [facility] 08-13-2024 History of Presen t illness Narrative Pt here for 2g IV magnesium per pt reqeust. Mg level 1.6. PIV initiated to LFA. Brisk blood return noted, flushes with ease. NS started at KVO. Magnesium infused over 2 hours. Pt tolerated well. PIV dc'd. Pressure dressing applied. Dc'd in stable ambulatory condition. documented in this encounter [facility] 08-06-2024 History of Presen t illness Narrative Pt here for 2g IV magnesium per pt reqeust. Mg level 1.5. PIV initiated to RFA. Brisk blood return noted, flushes with ease. NS started at KVO. Magnesium infused over 2 hours. Pt tolerated well. PIV dc'd. Pressure dressing applied. Dc'd in stable ambulatory condition. documented in this encounter [facility] 07-30-2024 History of Presen t illness Narrative Patient presents for Magnesium infusion. Mg 1.5 drawn 07/28/2024 Patient requests 2g of Magnesium today. PIV initiated, brisk blood return noted. Flushed with NS. Magnesium infusing as ordered over 2 hours. Patient tolerated infusion well. PIV discontinued, gauze secured with coban in place. Discharged in stable condition. documented in this encounter [facility] 07-23-2024 History of Presen t illness Narrative Patient presents for Magnesium infusion. Mg 1.6 drawn 07/21/2024 Patient will received 2g of Magnesium today per orders. PIV initiated, brisk blood return noted. Flushed with NS. Magnesium infusing as ordered over 2 hours. Patient tolerated infusion well. PIV discontinued, gauze secured with coban in place. Discharged in stable condition. documented in this encounter [facility] 07-16-2024 History of Presen t illness Narrative Pt here for 4gm IV magnesium for mg level 1.5. PIV initiated to RFA. Brisk blood return noted, flushes with ease. NS started at KVO. 4g IV magnesium infused over 4 hours without incident. Line flushed. PIV removed, pressure dressing applied. Dc'd in stable ambulatory condition. documented in this encounter [facility] 07-09-2024 History of Presen t illness Narrative Pt here for 2gm IV magnesium for mg level 1.6. PIV initiated to RFA. Brisk blood return noted, flushes with ease. NS started at KVO. 2g IV magnesium infused over 2 hours without incident. Line flushed. PIV removed, pressure dressing applied. Dc'd in stable ambulatory condition. documented in this encounter [facility] 07-02-2024 History of Presen t illness Narrative Pt here for 2gm IV magnesium for mg level 1.6. PIV initiated to RFA. Brisk blood return noted, flushes with ease. NS started at KVO. 2g IV magnesium infused over 2 hours without incident. Line flushed. PIV removed, pressure dressing applied. Dc'd in stable ambulatory condition. documented in this encounter [facility] 06-25-2024 History of Presen t illness Narrative Pt here for 2gm IV magnesium for mg level 1.7. PIV initiated to RFA. Brisk blood return noted, flushes with ease. NS started at KVO. 2g IV magnesium infused over 2 hours without incident. Line flushed. PIV removed, pressure dressing applied. Dc'd in stable ambulatory condition. documented in this encounter [facility] 06-18-2024 History of Presen t illness Narrative Patient is here for 2g IV magnesium as scheduled. Mg level 1.7. PIV initiated, blood return noted, flushes with ease. NS started at KVO. Magnesium infused over 2 hours. Line flushed. Pt tolerated well. PIV dc'd, pressure dressing applied. Pt dc'd in stable ambulatory condition with spouse. documented in this encounter [facility] 06-11-2024 History of Presen t illness Narrative [...] condition with spouse. documented in this encounter [facility] 05-29-2024 Miscellaneous Notes ----- Message from [...] mg Patient notified documented in this encounter [facility] 05-29-2024 Telephone encounter Note ----- Message [...] bring us a new sample for testing. [facility] 05-29-2024 Telephone encounter Note Adore will come in tomorrow to provide a repeat urine sample in office. She also was wondering about her low dose asprin. She had discontinued it about 1.5 months ago due to frequent nose bleeds. The nose bleeds are gone and wonders if she should start her asprin again. [facility] 05-29-2024 Telephone encounter Note Okay great! Yes she can restart aspirin [address] [facility] 05-29-2024 Telephone encounter Note Patient notified [facility] 05-28-2024 History of Presen t illness Narrative Patient presents for Magnesium infusion. Mg 1.6 drawn 05/26/2024 Patient will received 2g of Magnesium today per orders. PIV initiated, brisk blood return noted. Flushed with NS. Magnesium infusing as ordered over 2 hours. Patient tolerated infusion well. PIV discontinued, gauze secured with coban in place. Discharged in stable condition. documented in this encounter [facility] 05-27-2024 History of Presen t illness Narrative Subjective Patient ID: Adore Wolff is a 83 y.o. female. Adore presents today for diabetic recheck. She is taking her medications and not having any side effects. She has had it upper respiratory infection for a couple weeks it is better but she still has a nagging cough. She tried qrrv-ixy-orbzsis cough medicine but it made it worse. [...] Exam Vitals reviewed. Exam conducted with a cream dumper present (Ifeanyi Johnson MS III). Constitutional: General: [...] stage 4 chronic kidney disease and hypertension ([facility]) - POCT Hemoglobin A1c - POCT urinalysis dipstick only A1c wsa 7.1% Continue current regimen Dysuria - Urine culture (clean catch); Future Urine was abnormal so will check C&S. Acute rhinitis Will treat with loratadine 10 mg daily Morbid obesity ([facility]) She is morbidly obese. She would benefit from wt loss. Incontinence of feces with fecal urgency Recommended to stop reglan and try fiber supplement to give more bulk to stool.. Other orders - loratadine (CLARITIN) 10 mg tablet; Take 1 tablet (10 mg total) by mouth daily as needed for allergies. documented in this encounter [email or web address] 05-21-2024 History of Presen t illness Narrative Pt here for 2g IV magnesium for mg level of 1.7. PIV initiated to RFA. Brisk blood return noted, flushes with ease. NS started at KVO. Magnesium infused over 2 hours. Pt tolerated well. Line flushed. PIV dc'd. Pressure dressing applied. Dc'd in stable ambulatory condition. documented in this encounter [email or web address] 05-14-2024 History of Presen t illness Narrative Pt here for 2g IV magnesium for mg level 1.6. PIV initiated to RFA. Brisk blood return noted, flushes with ease. NS started at KVO. Magnesium infused over 2 hours. Pt tolerated well. PIV dc'd. Pressure dressing applied. Dc'd in stable ambulatory condition with spouse. documented in this encounter [email or web address] 05-07-2024 History of Presen t illness Narrative Patient is here for 4g IV magnesium as scheduled. Mg level 1.4. PIV initiated, blood return noted, flushes with ease. NS started at KVO. Magnesium infused over 2 hours. Line flushed. Pt tolerated well. PIV dc'd, pressure dressing applied. Pt dc'd in stable ambulatory condition with spouse. documented in this encounter [email or web address] 04-30-2024 History of Presen t illness Narrative [...] in stable condition. documented in this encounter [facility] 04-23-2024 History of Presen t illness Narrative Pt here for 4g IV magnesium for mg level of 1.4. PIV initiated to RFA. Brisk blood return noted, flushes with ease. NS started at KVO. Magnesium infused over 4 hours as ordered. Pt tolerated well. Line flushed. PIV dc'd, pressure dressing applied. Pt dc'd in stable condition. documented in this encounter [facility] 04-16-2024 History of Presen t illness Narrative Pt here for 2g IV magnesium as scheduled. Mg level 1.6. PIV initiated to RFA. Brisk blood return noted, flushes with ease. NS started at KVO. Magnesium infused over 2 hours. Pt tolerated well. PIV dc'd pressure dressing applied. Pt dc'd in stable ambulatory condition. V/u of future appointments. documented in this encounter [facility] 04-09-2024 History of Presen t illness [...] in stable condition. documented in this encounter [facility] 04-02-2024 History of Presen t illness Narrative Pt here for IV magnesium as scheduled. Mg level 1.7. PIV initiated to RFA. Blood return verified. Flushes with ease. NS started at KVO. 2g magnesium infused over 2 hours. Pt tolerated well. PIV dc'd. Pressure dressing applied. Pt dc'd in stable ambulatory condition. documented in this encounter [facility] 03-26-2024 History of Presen t illness Narrative Pt here for IV magnesium as scheduled for mg level of 1.6. PIV initiated to RFA. Brisk blood return noted, flushes with ease. NS started at KVO. Magnesium infused over 2 hours. Pt tolerated well. Line flushed. PIV dc'd- pressure dressing applied. Pt dc'd in stable ambulatory condition. documented in this encounter [facility] 03-19-2024 History of Presen t illness Narrative Pt here for IV magnesium for mg level 1.6. PIV initiated to RFA after several attempts. Brisk blood return noted, flushes with ease. NS started at KVO. Magnesium infused over 2 hours. Pt tolerated well. PIV dc'd- pressure dressing applied. Pt dc'd in stable ambulatory condition. V/u of future appts. documented in this encounter [facility] 03-12-2024 History of Presen t illness Narrative Pt here for Mg infusion. Mg 1.6, 2GM Mg indicated per order. PIV initiated to RFA, brisk blood return noted, flushes without difficulty. 2gm Mg infused over 2 hours, pt tolerated well. PIV discontinued, pressure dressing applied. Calendar provided, pt discharged ambulatory in stable condition. documented in this encounter [facility] 02-25-2024 History of Presen t illness Narrative Subjective Patient ID: Adore Wolff is a 83 y.o. female. Adore presents for a hoss-pi-utej visit to try to get pads for [...] Exam Vitals reviewed. Exam conducted with a cream dumper present (). Constitutional: Appearance: She is morbidly [...] make a referral. documented in this encounter [facility] 02-25-2024 History of Presen t illness Narrative Patient and were updated on normal magnesium level of 1.9. She is still very bruised on her arms and wishes to continue to hold infusions at this time since level is normal to allow her arms/veins time to be less bruised. She will continue to have weekly lab checks completed. documented in this encounter [facility] 02-20-2024 History of Presen t illness Narrative Received call back from Dr. Conley's office. Instructed to hold magnesium infusions at this time. Will update patient and have pt continue to have labs checked to monitor. documented in this encounter [facility] 02-19-2024 History of Presen t illness Narrative Pt magnesium level 1.9. called to notify patient and pt states her arms are still very bruised up from multiple IV attempts. Pt request to skip infusion this week to give her veins/arms a break since her mg level is wnl. Pt will recheck lab next week. documented in this encounter [facility] 02-13-2024 History of Presen t illness [...] stable ambulatory condition. documented in this encounter [facility] 02-06-2024 History of Presen t illness Narrative Pt here for 2g IV magnesium as scheduled for mg level 1.8. Tolerating infusions well. PIV initiated to RFA. Brisk blood return noted, flushes with ease. NS started at KVO. Magnesium infused over 2 hours. Pt tolerated well. PIV dc'd, pressure dressing applied. Pt dc'd in stable ambulatory condition. documented in this encounter [facility] 01-30-2024 History of Presen t illness Narrative Patient is here for 2g IV magnesium as scheduled. Mg level 1.8. PIV initiated, blood return noted, flushes with ease. NS started at KVO. Magnesium infused over 2 hours. Line flushed. Pt tolerated well. PIV dc'd, pressure dressing applied. Pt dc'd in stable ambulatory condition with spouse. documented in this encounter [facility] 01-23-2024 History of Presen t illness Narrative Patient is here for 2g IV magnesium as scheduled. Mg level 1.7. PIV initiated on second attempt, blood return noted, flushes with ease. NS started at KVO. Magnesium infused over 2 hours. Line flushed. Pt tolerated well. PIV dc'd, pressure dressing applied. Pt dc'd in stable ambulatory condition with spouse. documented in this encounter [facility] 01-16-2024 History of Presen t illness [...] of upcoming appointments. documented in this encounter [facility] 01-09-2024 History of Presen t illness Narrative Pt here for 2g IV magnesium for mg level of 1.7. Tolerating infusions well. PIV initiated to RFA. Brisk blood return, flushes with ease. NS started at KVO. Magnesium infused over 2 hours. Pt tolerated well. PIV flushed and dc'd. Pressure dressing applied. Dc'd in stable condition. documented in this encounter [facility] 01-08-2024 History of Presen t illness [...] Do you have a durable power of finance attorney?: Yes Cognitive Screening Do you have [...] year (around 01/08/2025). documented in this encounter [facility] 01-02-2024 History of Presen t illness Narrative Patient is here for 2g IV magnesium as scheduled. Mg level 1.7. PIV initiated on third attempt, blood return noted, flushes with ease. NS started at KVO. Magnesium infused over 2 hours. Line flushed. Pt tolerated well. PIV dc'd, pressure dressing applied. Pt dc'd in stable ambulatory condition with spouse. documented in this encounter [email or web address] 12-26-2023 History of Presen t illness Narrative Pt here for 2g IV magnesium infusion as scheduled. Mg level 1.6. Tolerating infusions well. PIV initiated to RFA. Brisk blood return noted, flushes with ease. NS started at KVO. Magnesium infused over 2 hours. Pt tolerated well. Line flushed. PIV dc'd. Pressure dressing applied. Pt v/u of future appointments. [facility] History of Presen t illness Narrative Pt here for 4g IV magnesium infusion as scheduled. Mg level 1.5. Tolerating infusions well. PIV initiated to LFA. Brisk blood return noted, flushes with ease. NS started at KVO. Magnesium infused over 4 hours. Pt tolerated well. Line flushed. PIV dc'd. Pressure dressing applied. Pt v/u of future appointments. documented in this encounter [facility] 12-12-2023 History of Presen t illness Narrative Patient is here for 2g IV magnesium as scheduled. Mg level 1.7. PIV initiated blood return noted, flushes with ease. NS started at KVO. Magnesium infused over 2 hours. Line flushed. Pt tolerated well. PIV dc'd, pressure dressing applied. Pt dc'd in stable ambulatory condition with spouse. documented in this encounter [facility] 12-05-2023 History of Presen t illness Narrative Patient here for 2g IV magnesium as scheduled. Mg level 1.7. PIV initiated blood return noted, flushes with ease. NS started at KVO. Magnesium infused over 2 hours. Line flushed. Pt tolerated well. PIV dc'd, pressure dressing applied. Pt dc'd in stable ambulatory condition with spouse. documented in this encounter [facility] 12-04-2023 Miscellaneous Notes Patient called and these are both covered by insurance and she would like these sent in instead of what the alternative was documented in this encounter [facility] 12-04-2023 Telephone encounter Note Patient called and these are both covered by insurance and she would like these sent in instead of what the alternative was [facility] 11-28-2023 History of Presen t illness Narrative Patient here for 2g IV magnesium as scheduled. Mg level 1.8. PIV initiated to LFA Brisk blood return noted, flushes with ease. NS started at KVO. Magnesium infused over 2 hours. Line flushed. Pt tolerated well. PIV dc'd, pressure dressing applied. Pt dc'd in stable ambulatory condition with spouse. documented in this encounter [facility] 11-26-2023 History of Presen t illness Narrative Subjective Patient ID: Adore Wolff is a 83 y.o. female. Adore presents for recheck of multiple problems. She is currently getting a series of magnesium infusions due to critically low magnesium level. She was asymptomatic. She got her labs done today at [facility]. She has information regarding her formulary. Lantus [...] Objective Physical Exam Exam conducted with a cream dumper present (). Constitutional: Appearance: She is morbidly [...] due to type 2 diabetes mellitus ([facility]) Blood pressure essentially at goal. Await CMP results. Await A1c and ACR results. Mixed hyperlipidemia Await lipid results Hypomagnesemia Managed by Nephrology. 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 Continue omeprazole. PPI can also lead to low magnesium. Morbid obesity ([facility]) She is morbidly obese. [...] the skin nightly. documented in this encounter [facility] 11-21-2023 History of Presen t illness Narrative [...] Treatment calendar provided. documented in this encounter [facility] 11-19-2023 Note Continue statin [facility] 11-19-2023 Note Hypertension is elev ated in office today was 192/86 and repeat b/p improved 158/80 Typically b/p is 122-150/60-80 at home and at other physician offices. Continue all meds ramipril, coreg [facility] 11-19-2023 Note Coronary artery dise ase is stable Continue GDMT- ASA, lipitor, coreg continue risk factor modifications- heart healthy diet, regular exercise as tolerated and continue all medications. [facility] 11-19-2023 Note Patient here for 1 y ear follow up CAD, hypertension, and venous insufficiency. Had labs a week or so ago for six sigma project manager and says she's in the process of [...] All other systems reviewed and are negative. [facility] 11-19-2023 Note [facility]TP CARDIOLOGY PROGR ESS [...] labs a week or so ago for six sigma project manager and says she's in the process of [...] 2.05, BUN 64, (more content not included)... [facility] 08-23-2023 Evaluation note Encounter Date Diagnosis [...] magnesium diet and provide information about it. [employer] [facility] 03-16-2023 NoteCONSULTATION CONSULTATION DATE: 01/25/2023 HISTORY: [...] and to talk with Dr. Conley, their six sigma project manager, to confirm that this was acceptable, considering her stage 3 kidney disease. Other than that, we will see her in three months' time at the clinic, unless otherwise indicated. Patient and agree with this plan.[facility] 01-25-2023 Evaluation note* Encounter Date Diagnosis Assessment [...] magnesium diet and provide information about it. [employer] [facility] Chief Complaint: Patient being seen via telephone call for 6 mo follow up hypertension, CAD, and CKD. She denies chest pain and increased SOB with exertion. C/o increased LE edema but denies weight gain. Says her six sigma project manager Dr. Conley advised her to call him [...] creatinine and electrolytes; she follows with her six sigma project manager Leg swelling is likely related to venous [...] was initiated by the patient and conducted [id number] with use of audio-only real time telephone communication between patient and provider for a virtual visit. Verbal consent to provide and bill for this service was obtained on 12/06/2022. No signature was obtained due to the COVID-19 pandemic. Moe Parham MD, MPH, [facility], [facility], [facility] Interventional Cardiology Pager Email: [email or web address] NoteCONSULTATION CONSULTATION DATE: 10/26/2022 HISTORY OF PRESENT ILLNESS: This is a very pleasant, 82-year-old female who presents with her for a three month follow up. Today, she reports 0/10 pain and is overall doing well. At her last appointment on 08/02/2022, we had switched her medications from [place] to tramadol extended release 100 mg per day, which she feels is helping very much. It is lasting for her better than the [place]. She is also on Lyrica 75 [...] indicated, and patient agrees with this plan.[id number] NoteCONSULTATION CONSULTATION DATE: 08/02/2022 HISTORY OF PRESENT ILLNESS: This is a pleasant, 81-year-old female, accompanied by her , returning to the clinic for a three month follow up for chronic lower back pain. She was last seen on 04/25/[address] Stern which, at that time, her [place] was decreased to 5/325 daily p.r.n., [...] increased to 100 mg extended release daily. [place] will be discontinued. Education was given regarding use of the menthol heat rub with Voltaren gel and heat application to her back. Vitamin and nutrition importance was discussed. Patient will be seen back in the clinic in three months' time, unless otherwise indicated, and patient agrees to this.[id number] Evaluation note* Encounter Date Diagnosis Assessment Notes [...] any recent gout flare. She takes allopurinol. [employer] [facility] 06-22-2022 Evaluation note* Encounter Date Diagnosis Assessment Notes Treatment Notes Treatment Clinical Notes Apr, Hypertensive chronic kidney disease with stage 1 through stage 4 chronic kidney disease, or unspecified chronic kidney disease (ICD-10 - I12.9) [employer] [facility] 06-14-2022 NoteCONSULTATION CONSULTATION DATE: 04/25/2022 CHIEF [...] 4/10. She is managing the pain with [place] 5/325 one table daily and tramadol [...] the patient's pain medication which would be [place] 5/325 one tablet daily and tramadol [...] us. CC: Fernie Clark D.O. [facility] Signed and Approved by: DR LUISA STERN . 05/02/2022 08:52:00[facility]05-26-2022 Evaluation note* Encounter Date Diagnosis Assessment [...] any recent gout flare. She takes allopurinol. [employer] [facility] 05-19-2022 NoteCONSULTATION CONSULTATION DATE: 03/30/2022 This [...] She was given a 14-day prescription of [place] 5/325 b.i.d. to help with the acuity of her post-procedure pain. Today she reports the [place] is gone and she is back [...] and rather we will maintain her on [place] 5/325 b.i.d. which proved to be [...] and would like to proceed. [facility] Signed and Approved by: JONNY CAMPUZANO . 04/03/2022 15:07:00[facility]02-15-2022 Evaluation note* Encounter Date Diagnosis Assessment [...] any recent gout flare. She takes allopurinol. [place] [employer] Other Evaluation noteNo InformationNort [employer] Other Evaluation noteNo assessment information available [facility] Work Phone: Evaluation note* Diagnosis Onset Date Resolution Status Anemia of renal disease acut e CKD (chronic kidney disease) stage 3, GFR 30-59 ml/min acute [id number] acute Hyperuricemia acute Hypomagnesemia acute Secondary hyperparathyroidism acute Type 2 diabetes mellitus wit h diabetic chronic kidney disease acute [facility] Work Phone: Evaluation note* Diagnosis Hypomagnesemia- Primary Disorders of magnesium metabolism [facility] Diagnosis Hypomagnesemia- Primary Disorders of magnesium metabolism [facility] Diagnosis 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 ([facility] Primary Morbid obesity ([facility]) Morbid obesity [facility] Diagnosis 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 ([facility])- Primary Morbid obesity ([facility]) Morbid obesity [facility] Diagnosis Lumbar stenosis with neurogenic claudication- Primary [facility] Diagnosis Lumbar stenosis with neurogenic claudication [facility] Diagnosis Hypomagnesemia- Primary Disorders of magnesium metabolism [facility] Diagnosis Hypomagnesemia- Primary Disorders of magnesium metabolism [facility] Diagnosis Hypomagnesemia- Primary Disorders of magnesium metabolism [facility] Diagnosis Mixed hyperlipidemia- Primary Type 2 diabetes mellitus with stage 3b chronic kidney disease, with long-term current use of insulin ([facility]) Essential hypertension Unspecified essential hypertension [facility] Diagnosis Hypomagnesemia- Primary Disorders of magnesium metabolism [facility] Diagnosis 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 ([facility])- Primary Mixed hyperlipidemia Hypomagnesemia 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 Morbid obesity ([facility]) Morbid obesity Chronic obstructive pulmonary disease, unspecified COPD type ([facility]) [facility] Diagnosis Hypomagnesemia- Primary Disorders of magnesium metabolism [facility] Diagnosis Hypomagnesemia- Primary Disorders of magnesium metabolism [facility] Diagnosis Hypomagnesemia- Primary Disorders of magnesium metabolism documented [facility] encounter [facility]* Diagnosis Hypomagnesemia- Primary Disorders of magnesium metabolism documented in this encounter [facility]* Diagnosis Hypomagnesemia- Primary Disorders of magnesium metabolism documented in this encounter [facility]* Diagnosis Acute cystitis with hematuria- Primary Essential hypertension Unspecified essential hypertension Acute right-sided low back pain without sciatica Nausea Nausea alone Anxiety Anxiety state, unspecified documented in this encounter [facility]* Diagnosis Medicare annual wellness visit, subsequent- Primary Screening for depression documented in this encounter [facility]* Diagnosis Constipation, unspecified constipation type- Primary Essential hypertension Unspecified essential hypertension Dysuria History of UTI History of sepsis Personal history of other infectious and parasitic disease Chronic low back pain without sciatica, unspecified back pain laterality documented in this encounter [facility]* Diagnosis 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 ([facility] Primary Dysuria Acute rhinitis Acute nasopharyngitis (common cold) Morbid obesity ([facility]) Morbid obesity Incontinence of feces with fecal urgency documented in this encounter [facility]* Diagnosis 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 ([facility])- Primary documented in this encounter [facility]* Diagnosis Hypomagnesemia- Primary Disorders of magnesium metabolism documented in this encounter [facility]* Diagnosis Hypomagnesemia- Primary Disorders of magnesium metabolism documented in this encounter [facility]* Diagnosis Hypomagnesemia- Primary Disorders of magnesium metabolism documented in this encounter [facility]* Diagnosis Urinary incontinence, unspecified type- Primary Abnormality of gait and mobility documented in this encounter [facility]* Diagnosis Hypomagnesemia- Primary Disorders of magnesium metabolism documented in this encounter [facility]* Diagnosis Hypomagnesemia- Primary Disorders of magnesium metabolism documented in this encounter [facility]* Diagnosis 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 ([facility] Primary Morbid obesity ([facility]) Morbid obesity documented in this encounter [facility]* Diagnosis Paresthesia of right lower extremity- Primary Ross's esophagus with dysplasia [facility] Diagnosis Hypomagnesemia- Primary Disorders of magnesium metabolism [facility] Diagnosis Lumbar stenosis with neurogenic claudication [facility] Diagnosis Lumbar stenosis with neurogenic claudication [facility] this [facility] Diagnosis Metabolic encephalopathy- Primary Urinary tract infection with hematuria, site unspecified Chronic neck pain Cervicalgia Chronic left-sided thoracic back pain 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 ([facility]) [facility] - [facility]orted* Type Description [...] IN LOWER BACK Hospitalization History see above [employer] [facility] general Narrative - Reported* Type Description Date [...] HEART CATH 03/30/2021 Hospitalization History see above [facility] [facility] general Narrative - Reported* Type Description Date [...] IN LOWER BACK Hospitalization History see above [employer] Other InstructionsNot on filedocumented in this encounter [facility] SystemInstructionsNot on filedocumented in this encounter [...] kidney disease) stage 3, GFR 30-59 ml/min [id number] Hyperuricemia Hypomagnesemia Secondary hyperparathyroidism Type 2 diabetes mellitus with diabetic chronic kidney disease Chief Complaint Admit Date Unknown November 20, 2024 4: 20am Chief Complaint Admit Date Unknown November 20, 2024 4: 20am Unknown January 03, 2025 11:10pm Chief Complaint Admit Date Unknown November 20, 2024 4: 20am Unknown January 03, 2025 11:10pm Unknown January 08, 2025 4:50am Additional Source Comments INFORMATION SOURCE (unrecogn ized section and content) DATE CREATED AUTHOR 04/06/2021 [facility] DATE CREATED AUTHOR AUTHOR'S ORGANIZ ATION 05/12/2022 [facility] DATE CREATED AUTHOR AUTHOR'S ORGANIZ ATION 03/15/2023 [facility] DATE CREATED AUTHOR AUTHOR'S ORGANIZ ATION 11/19/2023 [facility] DATE CREATED AUTHOR AUTHOR'S ORGANIZ ATION 06/03/2024 [facility] DATE CREATED AUTHOR AUTHOR'S ORGANIZ ATION 11/07/2024 [facility] DATE CREATED AUTHOR AUTHOR'S ORGANIZ ATION 11/23/2024 [facility] DATE CREATED AUTHOR AUTHOR'S ORGANIZ ATION 01/10/2025 [facility] DATE CREATED AUTHOR AUTHOR'S ORGANIZ ATION 01/10/2025 [facility] REASON FOR VISIT (unrecogniz ed section and [...] Active Gia Conley MD Attending Provider Active Hair Cutter Relationship Specialty Start Date End Date Tracyangel luisFernie [address] [place] [address] PCP - General Family Medicine 05/09/17 Flori Mon [facility] Nurse - [employer] 06/26/24 Hair Cutter Relationship Specialty Start Date End Date Tracyangel luisFernie [address] [place] [address] PCP - General Family Medicine 05/09/17 Flori Mon [facility] Nurse - [employer] 06/26/24 Hair Cutter Relationship Specialty Start Date End Date AmberShoaibFernie Jamarcus [address] [place] [address] PCP - General Family Medicine 05/09/17 Flori Mon [facility] Nurse - [employer] 06/26/24 Hair Cutter Relationship Specialty Start Date End Date Tracyangel luis Fernie JamarcusDO [address] [place] [address] PCP - General Family Medicine 05/09/17 Flori Mon [facility] Nurse - [employer] 06/26/24 Hair Cutter Relationship Specialty Start Date End Date AmberFernie [address], [place] [address] PCP - General Family Medicine 05/09/17 Flori Mon [facility] Nurse - [employer] 06/26/24 Hair Cutter Relationship Specialty Start Date End Date Fernie Clark DO [address], [place] [address] PCP - General Family Medicine 05/09/17 Clari Collierndcasie [facility] Nurse - [employer] 11/17/24 Hair Cutter Relationship Specialty Start Date End Date Fernie Clark DO [address], [place] [address] PCP - General Family Medicine 05/09/17 Clari Costa [facility] Nurse - [employer] 11/17/24 Hair Cutter Relationship Specialty Start Date End Date Fernie Clark DO [address], [place] [address] PCP - General Family Medicine 05/09/17 Clari Alasandro [facility] Nurse - [employer] 11/17/24 Hair Cutter Relationship Specialty Start Date End Date Fernie Clark DO [address], [place] [address] PCP - General Family Medicine 05/09/17 [facility] Nurse - [employer] 11/17/24 Hair Cutter Relationship Specialty Start Date End Date Fernie Clark [address] [place] [address] PCP - General Family Medicine 05/09/17 Clari Igor [facility] Nurse - [employer] 11/17/24 Hair Cutter Relationship Specialty Start Date End Date AmberFernie [address] [place] [address] PCP - General Family Medicine 05/09/17 Hair Cutter Relationship Specialty Start Date End Date Amber Fernie G, [address] [place] [address] PCP - General Family Medicine 05/09/17 Hair Cutter Relationship Specialty Start Date End Date AmberFernie [address] [place] [address] PCP - General Family Medicine 05/09/17 Hair Cutter Relationship Specialty Start Date End Date Amber Fernie G, [address] [place] [address] PCP - General Family Medicine 05/09/17 Hair Cutter Relationship Specialty Start Date End Date Amber Fernie G, [address] [place] [address] PCP - General Family Medicine 05/09/17 Hair Cutter Relationship Specialty Start Date End Date Fernie Clark DO [address] [place] [address] PCP - General Family Medicine 05/09/17 Hair Cutter Relationship Specialty Start Date End Date TracymonicaFernie noguera DO [address] [place] [address] PCP - General Family Medicine 05/09/17 Hair Cutter Relationship Specialty Start Date End Date Fernie Clark DO [address] [place] [address] PCP - General Family Medicine 05/09/17 Hair Cutter Relationship Specialty Start Date End Date Fernie Clark DO [address] [place] [address] PCP - General Family Medicine 05/09/17 Hair Cutter Relationship Specialty Start Date End Date Fernie Clark DO [address] [place] [address] PCP - General Family Medicine 05/09/17 Hair Cutter Relationship Specialty Start Date End Date TracymonicaFernie noguera DO [address], [place] [address] PCP - General Family Medicine 05/09/17 Hair Cutter Relationship Specialty Start Date End Date TracymonicaFernie noguera DO [address], [place] [address] PCP - General Family Medicine 05/09/17 Jeni Coronel [facility] Nurse - [employer] 04/23/24 Hair Cutter Relationship Specialty Start Date End Date Fernie Clark DO [address], [place] [address] PCP - General Family Medicine 05/09/17 Hair Cutter Relationship Specialty Start Date End Date Fernie Clark DO [address], [place] [address] PCP - General Family Medicine 05/09/17 Hair Cutter Relationship Specialty Start Date End Date Fernie Clark [address] [place] [address] PCP - General Family Medicine 05/09/17 Jeni Coronel [facility] Nurse - [employer] 04/23/24 Hair Cutter Relationship Specialty Start Date End Date Fernie Clark DO [address], [place] [address] PCP - General Family Medicine 05/09/17 Jeni Coronel [facility] Nurse - [employer] 04/23/24 Hair Cutter Relationship Specialty Start Date End Date Fernie Clark [address], [place] [address] PCP - General Family Medicine 05/09/17 Jeni Coronel [facility] Nurse - [employer] 04/23/24 Hair Cutter Relationship Specialty Start Date End Date Fernie Clark [address], [place] [address] PCP - General Family Medicine 05/09/17 Hair Cutter Relationship Specialty Start Date End Date Fernie Clark [address], [place] [address] PCP - General Family Medicine 05/09/17 Clari Costa [facility] Nurse - [employer] 11/17/24 Hair Cutter Relationship Specialty Start Date End Date Tracyangel luisFernie [address] [place] [address] PCP - General Family Medicine 05/09/17 Clari Costa [facility] Nurse - [employer] 11/17/24 Hair Cutter Relationship Specialty Start Date End Date TracymonicaFernie noguera [address], [place] [address] PCP - General Family Medicine 05/09/17 Jeni Coronel [facility] Nurse - [employer] 04/23/24 Hair Cutter Relationship Specialty Start Date End Date TracymonicaFernie noguera [address], [place] [address] PCP - General Family Medicine 05/09/17 Jeni Coronel [facility] Nurse - [employer] 04/23/24 Hair Cutter Relationship Specialty Start Date End Date TracymonicaFernie noguera [address], [place] [address] PCP - General Family Medicine 05/09/17 Jeni Coronel [facility] Nurse - [employer] 04/23/24 Hair Cutter Relationship Specialty Start Date End Date Fernie Clark [address], [place] [address] PCP - General Family Medicine 05/09/17 Jeni Coronel [facility] Nurse - [employer] 04/23/24 Hair Cutter Relationship Specialty Start Date End Date Fernie Clark [address] [place] [address] PCP - General Family Medicine 05/09/17 Jeni Coronel [facility] Nurse - [employer] 04/23/24 Hair Cutter Relationship Specialty Start Date End Date TracymonicaFernie noguera [address] [place] [address] PCP - General Family Medicine 05/09/17 Hair Cutter Relationship Specialty Start Date End Date Fernie Clark [address] [address], [address] [address] PCP - General Family Medicine 05/09/17 Jeni Coronel [facility] Nurse - [employer] 04/23/24 Hair Cutter Relationship Specialty Start Date End Date TracymonicaFernie noguera [address] [place] [address] PCP - General Family Medicine 05/09/17 Hair Cutter Relationship Specialty Start Date End Date TracymonicaFernie noguera [address], [place] [address] PCP - General Family Medicine 05/09/17 Flori Mon CCM Nurse - [employer] 06/26/24 Hair Cutter Relationship Specialty Start Date End Date Fernie Clark DO [address], [place] [address] PCP - General Family Medicine 05/09/17 Flori Mon CCM Nurse - [employer] 06/26/24 Hair Cutter Relationship Specialty Start Date End Date Fernie Clark DO [address], [place] [address] PCP - General Family Medicine 05/09/17 Flori Mon [facility] Nurse - [employer] 06/26/24 Hair Cutter Relationship Specialty Start Date End Date Fernie Clark DO [address], [place] [address] PCP - General Family Medicine 05/09/17 Flori Mon CCM Nurse - [employer] 06/26/24 Hair Cutter Relationship Specialty Start Date End Date Fernie Clark DO [address], [place] [address] PCP - General Family Medicine 05/09/17 Flori Mon CCM Nurse - [employer] 06/26/24 Hair Cutter Relationship Specialty Start Date End Date Fernie Clark DO [address], [place] [address] PCP - General Family Medicine 05/09/17 Flori Mon [facility] Nurse - [employer] 06/26/24 Hair Cutter Relationship Specialty Start Date End Date Fernie Clark DO [address], [place] [address] PCP - General Family Medicine 05/09/17 Flori Mon [facility] Nurse - [employer] 06/26/24 Hair Cutter Relationship Specialty Start Date End Date Fernie Clark DO [address], [place] [address] PCP - General Family Medicine 05/09/17 Flori Mon [facility] Nurse - [employer] 06/26/24 Hair Cutter Relationship Specialty Start Date End Date Fernie Clark DO [address], [place] [address] PCP - General Family Medicine 05/09/17 Flori Mon [facility] Nurse - [employer] 06/26/24 Hair Cutter Relationship Specialty Start Date End Date Fernie Clark DO [address], [place] [address] PCP - General Family Medicine 05/09/17 Flori Mon [facility] Nurse - [employer] 06/26/24 Team Status: Active Member Role Status Dates Fernie Clark DO Primary Care Provider Active Start: November 20, 2024 Yobany Lindsey DO Attending Provider Active Sta rt: November 20, 2024 Team Status: Active Member Role Status Dates Fernie Clark DO Primary Care Provider Active Start: November 24, 2024 End: November 28, 2024 Yobany Lindsey DO Attending Provider Active Sta rt: November 24, 2024 End: November 28, 2024 Team Status: Active Member Role Status Dates Fernie Clark DO Primary Care Provider Active Start: December 02, 2024 Yobany Lindsey DO Attending Provider Active Sta rt: December 02, 2024 Team Status: Active Member Role Status Dates Fernie Clark DO Primary Care Provider Active Start: December 07, 2024 End: December 09, 2024 Yobany Lindsey DO Attending Provider Active Sta rt: December 07, 2024 End: December 09, 2024 Gilberto Curtis MD Referring Provider Active Sta rt: December 07, 2024 End: December 09, 2024 Team Status: Inactive Member Role Status Dates Fernie Clark DO Primary Care Provider Active Start: January 03, 2025 End: January 03, 2025 León Nina DO Attending Provider Active Start : January 03, 2025 End: January 03, 2025 Team Status: Inactive Member Role Status Dates Fernie Clark DO Primary Care Provider Active Start: January 08, 2025 End: January 08, 2025 León Nina DO Attending Provider Active Start : January 08, 2025 End: January 08, 2025 Hair Cutter Relationship Specialty Start Date End Date Fernie Clark DO [address], [facility] [place] [address] PCP - General Family Medicine 05/09/17 Clari Costa [facility] Nurse - [facility] 11/17/24 Goals (unrecognized section and content) Goals [...] BE BASED ON THE PRIMARY CLINICAL RECORDS. [employer] provides no warranty or guarantee of the accuracy or completeness of information in this document.
--- NOTE | 2025-01-14 05:28 | ED.GENADUL1 ---
HPI HPI - General Adult General Chief complaint: Recheck/Abnormal Lab/Rx Stated complaint: WEAKNESS Time Seen by Provider: 01/14/25 05:07 Source: patient Mode of arrival: ambulance Limitations: no limitations History of Present Illness HPI narrative: This 84-year-old female was transferred from the [facility] where she is currently in rehab. The patient states that she was supposed to be getting her antibiotics around midnight and the nurse came in and could not wake her up so she threw a cold bag of ice on her chest. The patient states that she woke up and asked her to take the ice off of her chest because it was hurting her and she needed her antibiotic. The nurse brought her antibiotic but did not bring her anything to eat with it until she asked for something to eat and then brought her some pudding. She states she is anxious and does not like being there. She has recently been admitted to this facility twice. Once on 01/03/2025 and once on 01/07/2025. She is there for rehab. According to the nurse she had a normal bowel movement earlier today and has been calling them stating that she had to urinate but every time they try to change her she is dry. The patient states she is on antibiotics for a chronic UTI that she has had since November. She admits that she is very anxious. She is upset because they did not call her family from the custodial when she asked them to. Code status is DNR- CCA Related Data Home Medications ?Medication ?Instructions ?Recorded ?Confirmed aspirin 81 mg tablet,delayed 81 mg PO DAILY 04/26/23 01/08/25 release atorvastatin 80 mg tablet 80 mg PO DAILY 04/26/23 01/08/25 insulin lispro 100 unit/mL 6 unit subcut BIDWM 04/26/23 01/03/25 subcutaneous pen theophylline 400 mg 400 mg PO .QHS 04/26/23 01/08/25 tablet,extended release 24 hr fluticasone furoate 200 1 inh inhalation Q24H 11/24/24 01/08/25 mcg-vilanterol 25 mcg/dose inhalation powder (Breo Ellipta) insulin glargine 100 unit/mL (3 46 unit subcut .qhs 11/24/24 01/08/25 mL) subcutaneous pen (Lantus Solostar U-100 Insulin) montelukast 10 mg tablet 10 mg PO .QHS 11/24/24 01/08/25 pregabalin 75 mg capsule (Lyrica) 75 mg PO DAILY 11/24/24 01/08/25 acetaminophen 500 mg tablet 1,000 mg PO .q8hr PRN pain 01/02/25 01/08/25 albuterol 90 mcg/actuation aerosol 90 mcg inhalation Q4H PRN sob 01/02/25 01/08/25 inhaler carvedilol 12.5 mg tablet 25 mg PO BID 01/02/25 01/08/25 hydroxyzine HCl 25 mg tablet 25 mg PO QID PRN itching 01/02/25 01/08/25 lisinopril 40 mg tablet 40 mg PO DAILY 01/02/25 01/08/25 ondansetron 4 mg disintegrating 4 mg PO Q6H PRN nausea and vomiting 01/02/25 01/08/25 tablet sennosides 8.6 mg tablet 8.6 mg PO BID 01/02/25 01/08/25 (Black-Draught Lax-Senna) allopurinol 100 mg tablet 200 mg PO .QD 01/04/25 01/08/25 food supplemt, lactose-reduced 1 ea PO TID 01/08/25 01/08/25 (Ensure Active Protein-Muscle oral liquid) Previous Rx's ?Medication ?Instructions ?Recorded pantoprazole 40 mg tablet,delayed 40 mg PO DAILY #30 tabs 12/09/24 release (Protonix) baclofen 10 mg tablet 10 mg PO TID #0 tabs 01/02/25 cephalexin 250 mg capsule 250 mg PO Q12H 7 days #14 caps 01/06/25 prednisone 20 mg tablet 20 mg PO BID 7 days #14 tabs 01/06/25 Allergies Allergy/AdvReac Type Severity Reaction Status Date / Time adhesive tape Allergy Unknown rash Verified 01/02/25 07:16 povidone-iodine (From Allergy Unknown Rash Verified 01/02/25 07:16 Betadine) red dye Allergy Unknown Rash Verified 01/02/25 07:16 Sulfa (Sulfonamide Allergy Unknown Rash Verified 01/02/25 07:16 Antibiotics) tetracycline Allergy Unknown Rash Verified 01/02/25 07:16 Opioid HPI Opioid Management Most Recent Opioid Data: Last Pain Scale 4 01/08/25 11:27 01/08/25 Last Pain Intensity 4 11/27/24 11:35 11/27/24 Last Pain Assessment 01/08/25 13:16 Last MAR Pain Assessment 01/08/25 06:04 Last ORT Total Score 5 01/07/25 23:56 01/07/25 Last ORT Risk Category Moderate Risk 01/07/25 23:56 01/07/25 Review of Systems ROS Status of ROS 10 or more systems reviewed and unremarkable except as noted in history and below [facility] Medical History Generalized weakness ?R53.1 - Weakness (ICD-10) Altered mental status ?R41.82 - Altered mental status, unspecified (ICD-10) Acute kidney failure ?N17.9 - Acute kidney failure, unspecified (ICD-10) HLD (hyperlipidemia) ?E78.5 - Hyperlipidemia, unspecified (ICD-10) CKD stage 3b, GFR 30-44 ml/min ?N18.32 - Chronic kidney disease, stage 3b (ICD-10) Constipation due to opioid therapy ?K59.03 - Drug induced constipation (ICD-10) ?T40.2X5A - Adverse effect of other opioids, initial encounter (ICD-10) Chronic use of opiate drug for therapeutic purpose ?Z79.891 - USP (current) use of opiate analgesic (ICD-10) Lumbar stenosis with neurogenic claudication ?M48.062 - Spinal stenosis, lumbar region with neurogenic claudication (ICD-10) Diabetes ?E11.9 - Type 2 diabetes mellitus without complications (ICD-10) COPD (chronic obstructive pulmonary disease) ?J44.9 - Chronic obstructive pulmonary disease, unspecified (ICD-10) HTN (hypertension) ?I10 - Essential (primary) hypertension (ICD-10) Chronic prescription opiate use ?Z79.891 - USP (current) use of opiate analgesic (ICD-10) Lumbar radiculopathy, chronic ?M54.16 - Radiculopathy, lumbar region (ICD-10) Complication of electrolyte disorder ?E87.8 - Other disorders of electrolyte and fluid balance, not elsewhere classified (ICD-10) Concussion ?S06.0XAA - Concussion with loss of consciousness status unknown, initial encounter (ICD-10) Bilateral knee pain ?M25.561 - Pain in right knee (ICD-10) ?M25.562 - Pain in left knee (ICD-10) Muscle spasm ?M62.838 - Other muscle spasm (ICD-10) Lumbar spondylosis ?M47.816 - Spondylosis without myelopathy or radiculopathy, lumbar region (ICD-10) Knee osteoarthritis ?M17.9 - Osteoarthritis of knee, unspecified (ICD-10) Chronic kidney disease ?N18.9 - Chronic kidney disease, unspecified (ICD-10) Acute neck pain ?M54.2 - Cervicalgia (ICD-10) Head injury due to trauma ?S09.90XA - Unspecified injury of head, initial encounter (ICD-10) Urinary tract infection ?N39.0 - Urinary tract infection, site not specified (ICD-10) GERD without esophagitis ?K21.9 - Gastro-esophageal reflux disease without esophagitis (ICD-10) Gout due to renal impairment ?M10.30 - Gout due to renal impairment, unspecified site (ICD-10) Osteoarthritis ?M19.90 - Unspecified osteoarthritis, unspecified site (ICD-10) Anemia ?D64.9 - Anemia, unspecified (ICD-10) Carpal tunnel syndrome ?G56.00 - Carpal tunnel syndrome, unspecified upper limb (ICD-10) Acid reflux ?K21.9 - Gastro-esophageal reflux disease without esophagitis (ICD-10) Cirrhosis of liver ?K74.60 - Unspecified cirrhosis of liver (ICD-10) Kidney stone ?N20.0 - Calculus of kidney (ICD-10) Kidney failure ?N19 - Unspecified kidney failure (ICD-10) Asthma ?J45.909 - Unspecified asthma, uncomplicated (ICD-10) High cholesterol ?E78.00 - Pure hypercholesterolemia, unspecified (ICD-10) Surgical History History of appendectomy ?Z90.49 - Acquired absence of other specified parts of digestive tract (ICD-10) History of hysterectomy ?Z90.710 - Acquired absence of both cervix and uterus (ICD-10) History of neck surgery ?Z98.890 - Other specified postprocedural states (ICD-10) Hx of cholecystectomy ?Z90.49 - Acquired absence of other specified parts of digestive tract (ICD-10) History of lumbar laminectomy ?Z98.890 - Other specified postprocedural states (ICD-10) History of cardiac cath ?Z98.890 - Other specified postprocedural states (ICD-10) Family History Father Family history of CHF (congestive heart failure) Family history of COPD (chronic obstructive pulmonary disease) Family history of cancer Family history of diabetes mellitus Family history of hypertension Mother Family history of diabetes mellitus Family history of hypertension Family history of myocardial infarction Sister Family history of myocardial infarction Social History Within the past year, how often did you have a drink containing alcohol: never Score interpretation: A score less than 3 is consistent with normal alcohol consumption. Smoking status: Never smoker Non-prescribed substance use: denies use Previous occupational history: retired Highest level of school completed/degree received: Associate degree: occupational, technical, vocational program Are you now , , , , never or living with a partner: Little interest or pleasure in doing things: not at all Feeling down, depressed, or hopeless: not at all Do you think of yourself as: straight/heterosexual Gender Identity: female Exam Narrative Exam Narrative: Vital signs and Nursing Notes reviewed: Patient is afebrile with a normal pulse, blood pressure is elevated at 200/100, she is not hypoxic with pulse ox of 95% General: Alert, obese, nontoxic female, she is tremulous, no respiratory distress HEENT: Normocephalic atraumatic, mucous membranes are moist and pink, eyes are clear, normal conjunctiva, vision is grossly intact, posterior pharynx is normal in appearance. Neck: Supple, no meningeal signs, no posterior midline cervical incision Chest: Lungs are clear to auscultation with good air entry, there is no wheezing rhonchi or rales appreciated no accessory muscle use, patient is speaking in complete sentences-no chest wall tenderness to palpation CVS: Regular rate and rhythm S1-S2, no murmurs rubs or gallops, pulses are brisk and equal bilaterally ABD: Obese, soft, nondistended and nontender with normal bowel sounds Extremities: Moving all extremities, 2-3+ pitting edema bilateral lower extremities, mild erythema on the anterior aspect of the left lower leg Skin: Normal in appearance without rash,pallor, petechiae or purpura Neuro: No focal deficits, speech is clear, there is no facial droop, filer helper strength is intact, she is able to move her lower extremities although it this is limited due to her lower extremity size and general deconditioning Constitutional Vital Signs, click to edit/add: Last Vital Signs Temp 98.2 F 01/14/25 05:07 Pulse 82 01/14/25 06:40 Resp 16 01/14/25 06:40 BP 162/121 H 01/14/25 06:31 Pulse Ox 97 01/14/25 06:40 O2 Del Method Nasal Cannula 01/14/25 05:07 O2 Flow Rate 2 01/14/25 05:07 Course Vital Signs Vital signs: Vital Signs Temperature 98.2 F 01/14/25 05:07 Pulse Rate 80 01/14/25 05:07 Respiratory Rate 18 01/14/25 05:07 Blood Pressure 200/100 H 01/14/25 05:07 Pulse Oximetry 95 01/14/25 05:07 Oxygen Delivery Method Nasal Cannula 01/14/25 05:07 Oxygen Delivery Flow Rate 2 01/14/25 05:07 Temperature 98.2 F 01/14/25 05:07 Pulse Rate 82 01/14/25 06:40 Respiratory Rate 16 01/14/25 06:40 Blood Pressure 162/121 H 01/14/25 06:31 Pulse Oximetry 97 01/14/25 06:40 Oxygen Delivery Method Nasal Cannula 01/14/25 05:07 Oxygen Delivery Flow Rate 2 01/14/25 05:[address] [facility] Narrative Medical decision making narrative: This 84-year-old female who is currently in rehab at the [facility] is transferred for evaluation at her request. According to the nurse the patient is upset because they did not call her family during the night. They state that she has been calling them stating that she had to urinate but when they change her she is dry. She had a bowel movement earlier today. Her blood pressure was in the 180s systolic at the custodial and upon arrival her blood pressure was 200/100. The patient denies any teresa chest pain at this time. She states she is here because a nurse through an ice bag at her earlier tonight to wake her up when she was passing her antibiotic medication. She states this upset her and she asked the nurse to stop hurting her. The patient is generally a poor historian. It is unclear if the patient is unhappy with her care at the [facility] or truly having a medical emergency. Upon arrival her blood pressure was elevated. She was medicated with her blood pressure medications including Coreg and lisinopril. She was given a Xanax for anxiety. She admitted that she was very anxious after having a difficult night and was agreeable to something for her anxiety. An EKG done upon arrival was a sinus rhythm with occasional PVCs. I compared this to previous EKG on 01/07/2025 and she had an irregular baseline at that time that was read as atrial fibrillation but I appreciate P waves despite her tremulousness. She is not on any blood thinners. She was recently admitted for chest pain and discharged back to the extended care facility after cardiac etiology was ruled out. She states she is being treated for an ongoing UTI since November. It appears that she is currently on Keflex. I reviewed her recent microbiology specimens including blood cultures x 4 that were negative and urine cultures that were thought to be skin contaminants without any sensitivity required. Labs are reviewed. White blood count is minimally elevated at 12.2. She has a stable hemoglobin. She does have a history of chronic renal insufficiency and 2 months ago her BUN was greater than 100 and creatinine was greater than 5. Her BUN today is 40 and creatinine is 1.30. Liver function tests are normal. Glucose is elevated at 199, lactic acid is normal. Troponin is normal. at 43. A urinalysis was ordered but the patient had urinated earlier in the night and was not given any IV fluids. She was given a 250 cc IV bolus and given saline at 100 cc an hour. Her repeat blood pressure at the time of this dictation is 162/120. Her is now at the bedside. We are waiting on her urinalysis. She will be signed out to the incoming physician at 7 AM. Medical Records Medical records reviewed: Yes I reviewed the patient's medical records Lab Data Lab results reviewed: Yes I reviewed the patient's lab results Labs: Lab Results 01/14/25 Range/Units 05:12 WBC 12.2 H (4.0-11.0) 10^3/uL RBC 4.14 L (4.20-5.40) 10^6/uL Hgb 12.4 (12.0-16.0) g/dL Hct 38.4 (36.0-48.0) % MCV 92.8 (81.0-99.0) fL MCH 30.0 (26.7-34.0) pg MCHC 32.3 (29.9-35.2) g/dL RDW 15.3 H (11.0-15.0) % Plt Count 317 (150-450) 10^3/uL MPV 10.5 (9.5-13.5) fL Neut % (Auto) 83.0 H (43.0-75.0) % Lymph % (Auto) 7.3 L (20.5-60.0) % Curry % (Auto) 5.4 (1.7-12.0) % Eos % (Auto) 0.1 L (0.9-7.0) % Baso % (Auto) 0.5 (0.2-2.0) % Neut # (Auto) 10.1 H (1.4-6.5) 10^3/uL Lymph # (Auto) 0.9 L (1.2-3.8) 10^3/uL Curry # (Auto) 0.7 (0.3-0.8) 10^3/uL Eos # (Auto) 0.0 (0.0-0.7) 10^3/uL Baso # (Auto) 0.1 (0.0-0.1) 10^3/uL Abs Immat Gran (auto) 0.45 H (0.00-0.03) 10^3/uL Imm/Tot Granulo (auto) 3.7 H (0.0-0.5) % Sodium 141 (136-145) mmol/L Potassium 4.5 (3.5-5.1) mmol/L Chloride 105 (98-107) mmol/L Carbon Dioxide 29.4 (21.0-32.0) mmol/L Anion Gap 11.1 BUN 40.0 H (7.0-18.0) mg/dL Creatinine 1.30 H (0.55-1.02) mg/dL Est GFR ( Amer) 48 L (>=60 mL/min/1.73m^2) Est GFR (Non-Af Amer) 39 L (>=60 mL/min/1.73m^2) BUN/Creatinine Ratio 30.8 Glucose 199 H (74-106) mg/dL Lactate 2.0 (0.4-2.0) mmol/L Calcium 9.2 (8.5-10.1) mg/dL Total Bilirubin 0.5 (0.2-1.0) mg/dL AST 30 (15-37) U/L ALT 39 (14-59) U/L Alkaline Phosphatase 106 (46-116) U/L Troponin I High Sens 43.7 (4.0-51.3) pg/mL Total Protein 5.9 L (6.4-8.2) g/dL Albumin 2.6 L (3.4-5.0) g/dL Globulin 3.3 g/dL Albumin/Globulin Ratio 0.8 ECG Data Attestation: I personally reviewed and interpreted this ECG as follows: (Sinus rhythm 86 bpm, occasional PVCs noted, right bundle branch block, left anterior hemiblock, left axis deviation, no acute ST segment elevation or T wave inversion) Prior ECG tracings: available for review (essentially unchanged since 01/03/25) Discharge Plan Discharge Chief Complaint: Recheck/Abnormal Lab/Rx Clinical Impression: Generalized weakness, Hypertension Prescriptions / Home Meds: No Action aspirin 81 mg tablet,delayed release (DR/EC) 81 mg PO DAILY atorvastatin 80 mg tablet 80 mg PO DAILY insulin lispro 100 unit/mL insulin pen 6 unit subcut BIDWM theophylline 400 mg tablet extended release 24 hr 400 mg PO .QHS montelukast 10 mg tablet 10 mg PO .QHS fluticasone furoate-vilanterol [Breo Ellipta] 200-25 mcg/dose blister with device 1 inh INHALATION Q24H pregabalin [Lyrica] 75 mg capsule 75 mg PO DAILY insulin glargine [Lantus Solostar U-100 Insulin] 100 unit/mL (3 mL) insulin pen 46 unit SUBCUT .qhs Ensure Active Protein-Muscle Liquid 1 ea PO TID pantoprazole [Protonix] 40 mg tablet,delayed release (DR/EC) 40 mg PO DAILY Qty: 30 11RF lisinopril 40 mg tablet 40 mg PO DAILY ondansetron 4 mg tablet,disintegrating 4 mg PO Q6H PRN (Reason: nausea and vomiting) hydroxyzine HCl 25 mg tablet 25 mg PO QID PRN (Reason: itching) sennosides [Black-Draught Lax-Senna] 8.6 mg tablet 8.6 mg PO BID carvedilol 12.5 mg Tablet 25 mg PO BID acetaminophen 500 mg tablet 1,000 mg PO .q8hr PRN (Reason: pain) albuterol 90 mcg/actuation aerosol 90 mcg inhalation Q4H PRN (Reason: sob) baclofen 10 mg tablet 10 mg PO TID Qty: 0 0RF allopurinol 100 mg tablet 200 mg PO .QD prednisone 20 mg tablet 20 mg PO BID 7 Days Qty: 14 0RF cephalexin 250 mg capsule 250 mg PO Q12H 7 Days Qty: 14 0RF Print Language: Upper Sorbian Referrals: SHANDA CLARK [Primary Care Provider] - 1 week
[2025-01-14 05:37] LABS: Basophils Absolute Auto 0.1 10^3/uL (0.0-0.1); Basophils Percent Auto 0.5 % (0.2-2.0); Eosinophils Percent Auto 0.1 % (0.9-7.0); Hematocrit 38.4 % (36.0-48.0); Hemoglobin 12.4 g/dL (12.0-16.0); Immature Granulocytes Abs Auto 0.45 10^3/uL (0.00-0.03); Immature Granulocytes Pct Auto 3.7 % (0.0-0.5); Lymphocytes Absolute Auto 0.9 10^3/uL (1.2-3.8); Lymphocytes Percent Auto 7.3 % (20.5-60.0); Mean Corpuscular HGB Conc 32.3 g/dL (29.9-35.2); Mean Corpuscular Volume 92.8 fL (81.0-99.0); Mean Platelet Volume 10.5 fL (9.5-13.5); Monocytes Absolute Auto 0.7 10^3/uL (0.3-0.8); Monocytes Percent Auto 5.4 % (1.7-12.0); Neutrophils Absolute Auto 10.1 10^3/uL (1.4-6.5); Platelet Count 317 10^3/uL (150-450); Red Blood Count 4.14 10^6/uL (4.20-5.40); Red Cell Distribution Width 15.3 % (11.0-15.0); White Blood Count 12.2 10^3/uL (4.0-11.0)
[2025-01-14] MEDS: LISINOPRIL 20 MG TABLET 40 MG PO (05:45)
[2025-01-14] MEDS: CARVEDILOL 25 MG TABLET PO (05:45)
[2025-01-14] MEDS: ALPRAZOLAM 0.5 MG TABLET PO (05:45)
[2025-01-14 05:51] LABS: Alanine Aminotransferase 39 U/L (14-59); Albumin Globulin Ratio 0.8; Albumin Level 2.6 g/dL (3.4-5.0); Alkaline Phosphatase 106 U/L (46-116); Anion Gap 11.1; Aspartate Amino Transferase 30 U/L (15-37); BUN Creatinine Ratio 30.8; Bilirubin Total 0.5 mg/dL (0.2-1.0); Calcium 9.2 mg/dL (8.5-10.1); Carbon Dioxide 29.4 mmol/L (21.0-32.0); Chloride 105 mmol/L (98-107); Estimated GFR (African America 48 (>=60 mL/min/1.73m^2); Estimated GFR (Non-African Ame 39 (>=60 mL/min/1.73m^2); Globulin 3.3 g/dL; Glucose 199 mg/dL (74-106); Potassium 4.5 mmol/L (3.5-5.1); Sodium 141 mmol/L (136-145); Total Protein 5.9 g/dL (6.4-8.2)
--- NOTE | 2025-01-14 05:52 | ECG_ITS ---
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 Measurements Intervals [place] Rate: 86 P: 54 [place]: 164 QRS: -51 QRSD: 132 T: 18 QT: 416 QTc: 459 Interpretive Statements 1100 Sinus rhythm 1470 with occasional supraventricular premature complexes 2450 Right bundle branch block 2630 Left anterior fascicular block 9150 abnormal ECG Compared to ECG 01/07/2025 21:54:21 Left anterior fascicular block now present Left-axis deviation no longer present Electronically Signed On 01-15-2025 6:23:28 EST by NELL HUA M.D.
--- NOTE | 2025-01-14 06:17 | PC.NURSE ---
patient alert and oriented. skin pwd. [facility]. nurse called report states that patient keeps calling 911 stating she wants to go to the hospital. states there is nothing physically wrong with her but patient
[2025-01-14 06:32] LABS: Troponin I High Sensitivity 43.7 pg/mL (4.0-51.3)
[2025-01-14] MEDS: 0.9 % SODIUM CHLORIDE 1,000 ML 250 ML IV (06:34)
[2025-01-14 07:33] LABS: Bilirubin Urine NEGATIVE (NEGATIVE); Blood Urine TRACE-I (NEGATIVE); Clarity Urine SL CLOUDY (CLEAR); Color Urine LT. YELLOW (YELLOW); Glucose Urine UA NEGATIVE (NEGATIVE); Ketones Urine NEGATIVE (NEGATIVE); Leukocyte Esterase Urine MODERATE (NEGATIVE); Nitrite Urine NEGATIVE (NEGATIVE); Protein Urine >=300 mg/dL (NEG/TRACE); Urobilinogen Urine 0.2 EU/dL (0.2-1.0)
[2025-01-14 07:39] LABS: Bacteria Urine MODERATE #/HPF (NONE SEEN); Cast Seen? NONE SEEN #/LPF (NONE SEEN); Crystals Seen? None Seen #/HPF (None Seen); Mucus Urine NONE SEEN (NONE SEEN); Squamous Epithelial Cell Urine RARE #/LPF (NONE/RARE); WBC Urine 20-50 #/HPF (NONE SEEN)
[2025-01-14 07:40] LABS: Urine Culture Indicated YES-FRMC
--- NOTE | 2025-01-14 09:12 | SWNOTE1 ---
SW had a voicemail from ED. Pt and family in ED and they are voicing they do not want pt to return there. SW to go down and speak with family.
--- NOTE | 2025-01-14 09:40 | SWNOTE1 ---
AYAH met with pt's daughter and in pt's room. They voiced frustrations with the events that occurred last evening and why the was not called before being transported here. Family also asked about her going to another facility, such as [facility]. SW let them know [facility] and [facility] are full. Daughter asked about other facilities in [place]. AYAH advised there is [facility], [facility], and [facility]. AYAH let them know that unfortunately pt does not have a medical reason to be admitted to hospital. AYAH advised that the [facility] should help coordinate getting patient to another facility if that is what they would like. AYAH advised pt and family to be an advocate for pt and that AYAH can look in to having someone from [facility] meet with them today to voice their concerns. Daughter stated she would like to meet [facility]. AYAH to find out who that it. AYAH called [facility] and spoke to Olga. Olga let AYAH know that Kandice is [facility] and she has a meeting until 11/11:30 and then will be available. AYAH passed this information along to the family. At this time pt will be discharged back to [facility] and family will meet with Kandice today.
--- NOTE | 2025-01-16 14:48 | PC.NURSE ---
pt resides at the [facility], faxed urine culture results to the [facility] and called the [facility] to inform the facility, spoke with Gayle to inform Gayle of this test result they need to have and address. Gayle verbalized understanding.
== END 2025-01-14 10:31 | disposition home or self-care (01) ==
PROVIDERS: Emergency Provider Emergency Medicine; PCP Family Medicine
DX: R53.1 Weakness (principal); N39.0 Urinary tract infection, site not specified; I10 Essential (primary) hypertension; Z66 Do not resuscitate; Z90.710 Acquired absence of both cervix and uterus; Z90.49 Acquired absence of other specified parts of digestive tract; Z79.899 Other long term (current) drug therapy; F41.9 Anxiety disorder, unspecified
CPT/HCPCS: 36415; 80053; 81001; 83605; 84484; 85025; 87086; 87150; 87186; 93005; 99284

== ENCOUNTER 2025-03-05 07:43 | Outpatient (RCR) | payer MEDICARE, SELFPAY ==
[2025-02-26 11:00] VITALS: BP 99/49; PULSE 55; TEMP 36.1; O2SAT 96
[2025-02-26 11:24] LABS: Magnesium 1.4 mg/dL (1.8-2.4)
[2025-02-26] MEDS: MAGNESIUM SULFATE IN WATER 2 GM/50 ML PREMIX IV (11:35)
--- NOTE | 2025-02-26 12:51 | PC.NURSE ---
1210: Resting quietly with eyes closed. Resp. even and non-labored. IV site clear.
--- NOTE | 2025-02-26 13:47 | PC.NURSE ---
1335: IV mag. infused without s&s of adverse reaction. Pt. cont. sleeping. [employer] from [employer] to pick pt. up close to 1415.
== END 2025-03-11 23:59 | disposition home or self-care (01) ==
LOC: INF 07:43
PROVIDERS: PCP Family Medicine; Visit Provider Internal Medicine
DX: E83.42 Hypomagnesemia (principal)
CPT/HCPCS: 36415; 83735; 96365; 96366; J3475

== ENCOUNTER 2025-03-07 12:45 | Inpatient (IN) | payer MEDICARE, SELFPAY ==
[2025-03-07] VITALS (8 sets, daily range): BP systolic 120–164; BP diastolic 54–82; PULSE 55–65; TEMP 36.4; O2SAT 93–99; BMI 47.3; BMI 48.1
--- NOTE | 2025-03-07 13:06 | ECG_ITS ---
The [facility] Test Date: 2025-03-07 Pat Name: DAVID DUGAN Department: Room: - Gender: Female Child Development Teacher: : 1940 Requested By: 1030 Order Number: [id number] [place] MD: NELL HUA M.D. Measurements Intervals [place] Rate: 57 P: 103 MT: 194 QRS: -25 QRSD: 136 T: 43 QT: 452 QTc: 447 Interpretive Statements 1100 Sinus rhythm 2450 Right bundle branch block 7202 Moderate left axis deviation 9150 abnormal ECG Compared to ECG 01/14/2025 05:17:35 Left-axis deviation now present Left anterior fascicular block no longer present Electronically Signed On 03-07-2025 14:27:03 EDT by NELL HUA M.D.
--- NOTE | 2025-03-07 13:10 | ED_ITS ---
HPI HPI - General Adult General Chief complaint: Weakness Stated complaint: WEAKNESS Time Seen by Provider: 03/07/25 12:52 Source: patient Mode of arrival: ambulance Limitations: no limitations History of Present Illness HPI narrative: 84-year-old female presents because she states both legs felt weak. She was lying in her bed and wanted to put them over the edge of the bed and she could not because they were too weak. She cannot walk on a normal basis, she does not use a walker. She gets around with a Emilee lift. She does not complain of pain. She does not complain of shortness of breath or fever or cough. Related Data Home Medications ?Medication ?Instructions ?Recorded ?Confirmed aspirin 81 mg tablet,delayed 81 mg PO DAILY 04/26/23 03/07/25 release atorvastatin 80 mg tablet 80 mg PO DAILY 04/26/23 03/07/25 insulin lispro 100 unit/mL 6 unit subcut BIDWM 04/26/23 03/07/25 subcutaneous pen theophylline 400 mg 400 mg PO .QHS 04/26/23 03/07/25 tablet,extended release 24 hr fluticasone furoate 200 1 inh inhalation Q24H 11/24/24 03/07/25 mcg-vilanterol 25 mcg/dose inhalation powder (Breo Ellipta) insulin glargine 100 unit/mL (3 46 unit subcut .qhs 11/24/24 03/07/25 mL) subcutaneous pen (Lantus Solostar U-100 Insulin) montelukast 10 mg tablet 10 mg PO .QHS 11/24/24 03/07/25 pregabalin 75 mg capsule (Lyrica) 75 mg PO DAILY 11/24/24 03/07/25 acetaminophen 500 mg tablet 1,000 mg PO .q8hr PRN pain 01/02/25 03/07/25 albuterol 90 mcg/actuation aerosol 90 mcg inhalation Q4H PRN sob 01/02/25 03/07/25 inhaler carvedilol 12.5 mg tablet 25 mg PO BID 01/02/25 03/07/25 hydroxyzine HCl 25 mg tablet 25 mg PO QID PRN itching 01/02/25 03/07/25 lisinopril 40 mg tablet 40 mg PO DAILY 01/02/25 03/07/25 ondansetron 4 mg disintegrating 4 mg PO Q6H PRN nausea and vomiting 01/02/25 03/07/25 tablet sennosides 8.6 mg tablet 8.6 mg PO BID 01/02/25 03/07/25 (Black-Draught Lax-Senna) allopurinol 100 mg tablet 200 mg PO .QD 01/04/25 03/07/25 food supplemt, lactose-reduced 1 ea PO TID 01/08/25 03/07/25 (Ensure Active Protein-Muscle oral liquid) Previous Rx's ?Medication ?Instructions ?Recorded pantoprazole 40 mg tablet,delayed 40 mg PO DAILY #30 tabs 12/09/24 release (Protonix) baclofen 10 mg tablet 10 mg PO TID #0 tabs 01/02/25 cephalexin 250 mg capsule 250 mg PO Q12H 7 days #14 caps 01/06/25 prednisone 20 mg tablet 20 mg PO BID 7 days #14 tabs 01/06/25 Allergies Allergy/AdvReac Type Severity Reaction Status Date / Time adhesive tape Allergy Unknown rash Verified 03/07/25 13:33 povidone-iodine (From Allergy Unknown Rash Verified 03/07/25 13:33 Betadine) red dye Allergy Unknown Rash Verified 03/07/25 13:33 Sulfa (Sulfonamide Allergy Unknown Rash Verified 03/07/25 13:33 Antibiotics) tetracycline Allergy Unknown Rash Verified 03/07/25 13:33 Opioid HPI Opioid Management Most Recent Opioid Data: Last Pain Scale 4 01/08/25 11:27 01/08/25 Last Pain Intensity 4 11/27/24 11:35 11/27/24 Last ORT Total Score 5 01/07/25 23:56 01/07/25 Last ORT Risk Category Moderate Risk 01/07/25 23:56 01/07/25 Review of Systems ROS Narrative A ten point review of systems is negative except as noted above. [facility] Medical History Generalized weakness ?R53.1 - Weakness (ICD-10) Altered mental status ?R41.82 - Altered mental status, unspecified (ICD-10) Acute kidney failure ?N17.9 - Acute kidney failure, unspecified (ICD-10) HLD (hyperlipidemia) ?E78.5 - Hyperlipidemia, unspecified (ICD-10) CKD stage 3b, GFR 30-44 ml/min ?N18.32 - Chronic kidney disease, stage 3b (ICD-10) Constipation due to opioid therapy ?K59.03 - Drug induced constipation (ICD-10) ?T40.2X5A - Adverse effect of other opioids, initial encounter (ICD-10) Chronic use of opiate drug for therapeutic purpose ?Z79.891 - supervisor intermediates (current) use of opiate analgesic (ICD-10) Lumbar stenosis with neurogenic claudication ?M48.062 - Spinal stenosis, lumbar region with neurogenic claudication (ICD- 10) Diabetes ?E11.9 - Type 2 diabetes mellitus without complications (ICD-10) COPD (chronic obstructive pulmonary disease) ?J44.9 - Chronic obstructive pulmonary disease, unspecified (ICD-10) HTN (hypertension) ?I10 - Essential (primary) hypertension (ICD-10) Chronic prescription opiate use ?Z79.891 - assisted (current) use of opiate analgesic (ICD-10) Lumbar radiculopathy, chronic ?M54.16 - Radiculopathy, lumbar region (ICD-10) Complication of electrolyte disorder ?E87.8 - Other disorders of electrolyte and fluid balance, not elsewhere classified (ICD-10) Concussion ?S06.0XAA - Concussion with loss of consciousness status unknown, initial encounter (ICD-10) Bilateral knee pain ?M25.561 - Pain in right knee (ICD-10) ?M25.562 - Pain in left knee (ICD-10) Muscle spasm ?M62.838 - Other muscle spasm (ICD-10) Lumbar spondylosis ?M47.816 - Spondylosis without myelopathy or radiculopathy, lumbar region (ICD-10) Knee osteoarthritis ?M17.9 - Osteoarthritis of knee, unspecified (ICD-10) Chronic kidney disease ?N18.9 - Chronic kidney disease, unspecified (ICD-10) Acute neck pain ?M54.2 - Cervicalgia (ICD-10) Head injury due to trauma ?S09.90XA - Unspecified injury of head, initial encounter (ICD-10) Urinary tract infection ?N39.0 - Urinary tract infection, site not specified (ICD-10) GERD without esophagitis ?K21.9 - Gastro-esophageal reflux disease without esophagitis (ICD-10) Gout due to renal impairment ?M10.30 - Gout due to renal impairment, unspecified site (ICD-10) Osteoarthritis ?M19.90 - Unspecified osteoarthritis, unspecified site (ICD-10) Anemia ?D64.9 - Anemia, unspecified (ICD-10) Carpal tunnel syndrome ?G56.00 - Carpal tunnel syndrome, unspecified upper limb (ICD-10) Acid reflux ?K21.9 - Gastro-esophageal reflux disease without esophagitis (ICD-10) Cirrhosis of liver ?K74.60 - Unspecified cirrhosis of liver (ICD-10) Kidney stone ?N20.0 - Calculus of kidney (ICD-10) Kidney failure ?N19 - Unspecified kidney failure (ICD-10) Asthma ?J45.909 - Unspecified asthma, uncomplicated (ICD-10) High cholesterol ?E78.00 - Pure hypercholesterolemia, unspecified (ICD-10) Surgical History History of appendectomy ?Z90.49 - Acquired absence of other specified parts of digestive tract (ICD- 10) History of hysterectomy ?Z90.710 - Acquired absence of both cervix and uterus (ICD-10) History of neck surgery ?Z98.890 - Other specified postprocedural states (ICD-10) Hx of cholecystectomy ?Z90.49 - Acquired absence of other specified parts of digestive tract (ICD- 10) History of lumbar laminectomy ?Z98.890 - Other specified postprocedural states (ICD-10) History of cardiac cath ?Z98.890 - Other specified postprocedural states (ICD-10) Family History Father Family history of CHF (congestive heart failure) Family history of COPD (chronic obstructive pulmonary disease) Family history of cancer Family history of diabetes mellitus Family history of hypertension Mother Family history of diabetes mellitus Family history of hypertension Family history of myocardial infarction Sister Family history of myocardial infarction Social History Within the past year, how often did you have a drink containing alcohol: never Score interpretation: A score less than 3 is consistent with normal alcohol consumption. Smoking status: Never smoker Non-prescribed substance use: denies use Previous occupational history: retired Highest level of school completed/degree received: Associate degree: occupational, technical, vocational program Are you now , , , , never or living with a partner: Little interest or pleasure in doing things: not at all Feeling down, depressed, or hopeless: not at all Do you think of yourself as: straight/heterosexual Gender Identity: female Exam Narrative Exam Narrative: Nurses note and vital signs reviewed and patient is not hypoxic. General: The patient appears in no apparent distress. Skin: Warm, dry, no pallor noted. There is no rash noted. Head: Normocephalic, atraumatic Eye: Normal conjunctiva, no drainage Ears, Nose, Mouth, and Throat: oral mucosa is moist. Nares patent. Cardiovascular: Regular Rate and Rhythm Respiratory: Patient is in no distress, no accessory muscle use, lungs are clear to auscultation, no wheezing, rales or rhonchi GI: Obese and nontender Musculoskeletal: Lower extremities are obese Neurological: A&O, normal speech; she is able to make effort to move her legs and try to lift them off the cart. Psychiatric: Cooperative Constitutional Vital Signs, click to edit/add: Last Vital Signs Temp 97.5 F L 03/07/25 12:50 Pulse 59 L 03/07/25 12:50 Resp 18 03/07/25 12:50 BP 164/82 H 03/07/25 12:50 Pulse Ox 96 03/07/25 12:50 O2 Del Method Nasal Cannula 03/07/25 12:50 O2 Flow Rate 2 03/07/25 12:50 Course Vital Signs Vital signs: Vital Signs Temperature 97.5 F L 03/07/25 12:50 Pulse Rate 59 L 03/07/25 12:50 Respiratory Rate 18 03/07/25 12:50 Blood Pressure 164/82 H 03/07/25 12:50 Pulse Oximetry 96 03/07/25 12:50 Oxygen Delivery Method Nasal Cannula 03/07/25 12:50 Oxygen Delivery Flow Rate 2 03/07/25 12:50 Temperature 97.5 F L 03/07/25 12:50 Pulse Rate 59 L 03/07/25 12:50 Respiratory Rate 18 03/07/25 12:50 Blood Pressure 164/82 H 03/07/25 12:50 Pulse Oximetry 96 03/07/25 12:50 Oxygen Delivery Method Nasal Cannula 03/07/25 12:50 Oxygen Delivery Flow Rate 2 03/07/25 12:50 Medical Decision Making MDM Narrative Medical decision making narrative: BUN and creatinine are elevated well above her baseline and she was given IV fluids. Urine shows 50-75 white blood cells per high-power field and culture is ordered and she was given IV Rocephin pending the outcome of the culture. Findings are discussed with the patient and her and she is being admitted. Differential Diagnosis Differential Diagnosis: Dehydration, UTI, pneumonia Lab Data Lab results reviewed: Yes I reviewed the patient's lab results Labs: Lab Results 03/07/25 03/07/25 Range/Units 13:15 13:18 WBC 4.9 (4.0-11.0) 10^3/uL RBC 2.98 L (4.20-5.40) 10^6/uL Hgb 8.9 L (12.0-16.0) g/dL Hct 30.5 L (36.0-48.0) % MCV 102.3 H (81.0-99.0) fL MCH 29.9 (26.7-34.0) pg MCHC 29.2 L (29.9-35.2) g/dL RDW 15.3 H (11.0-15.0) % Plt Count 229 (150-450) 10^3/uL MPV 9.9 (9.5-13.5) fL Neut % (Auto) 56.5 (43.0-75.0) % Lymph % (Auto) 25.3 (20.5-60.0) % [place] % (Auto) 12.3 H (1.7-12.0) % Eos % (Auto) 4.1 (0.9-7.0) % Baso % (Auto) 0.8 (0.2-2.0) % Neut # (Auto) 2.8 (1.4-6.5) 10^3/uL Lymph # (Auto) 1.2 (1.2-3.8) 10^3/uL [place] # (Auto) 0.6 (0.3-0.8) 10^3/uL Eos # (Auto) 0.2 (0.0-0.7) 10^3/uL Baso # (Auto) 0.0 (0.0-0.1) 10^3/uL Abs Immat Gran (auto) 0.05 H (0.00-0.03) 10^3/uL Imm/Tot Granulo (auto) 1.0 H (0.0-0.5) % Sodium 143 (136-145) mmol/L Potassium 5.3 H (3.5-5.1) mmol/L Chloride 106 (98-107) mmol/L Carbon Dioxide 30.9 (21.0-32.0) mmol/L Anion Gap 11.4 BUN 75.0 H (7.0-18.0) mg/dL Creatinine 3.58 H (0.55-1.02) mg/dL Est GFR ( Amer) 15 L (>=60 mL/min/1.73m^2) Est GFR (Non-Af Amer) 12 L (>=60 mL/min/1.73m^2) BUN/Creatinine Ratio 20.9 Glucose 149 H (74-106) mg/dL Calcium 8.8 (8.5-10.1) mg/dL Urine Color Lt. yellow (YELLOW) Urine Clarity Clear (CLEAR) Urine pH 6.0 (5.0-9.0) Ur Specific [place] 1.020 (1.005-1.025) Urine Protein 100 A (NEG/TRACE) mg/dL Urine Glucose (UA) Negative (NEGATIVE) mg/dL Urine Ketones Negative (NEGATIVE) mg/dL Urine Occult Blood Trace-i (NEGATIVE) Urine Nitrite Negative (NEGATIVE) Urine Bilirubin Negative (NEGATIVE) Urine Urobilinogen 0.2 (0.2-1.0) EU/dL Ur Leukocyte Esterase Large A (NEGATIVE) Urine RBC 0-2 (0-2) #/HPF Urine WBC 50-75 A (NONE SEEN) #/HPF Ur Squamous Epith Cells Rare (NONE/RARE) #/LPF Urine Crystals None seen (None Seen) #/HPF Urine Bacteria Trace A (NONE SEEN) #/HPF Urine Casts None seen (NONE SEEN) #/LPF Urine Mucus None seen (NONE SEEN) Ur Culture Indicated? [place] [place] Data Chest x-ray: Radiologist's impression: Interpretation is pending ECG Data Attestation: I personally reviewed and interpreted this ECG as follows: (EKG on my interpretation shows sinus rhythm with a rate of 57) Discharge Plan Discharge Chief Complaint: Weakness Clinical Impression: Acute kidney injury, Urinary tract infection Patient Disposition: Admitted As Inpatient Time of Disposition Decision: 14:01 Condition: Fair
[2025-03-07 13:24] LABS: Bilirubin Urine NEGATIVE (NEGATIVE); Blood Urine TRACE-I (NEGATIVE); Clarity Urine CLEAR (CLEAR); Color Urine LT. YELLOW (YELLOW); Glucose Urine UA NEGATIVE (NEGATIVE); Ketones Urine NEGATIVE (NEGATIVE); Leukocyte Esterase Urine LARGE (NEGATIVE); Nitrite Urine NEGATIVE (NEGATIVE); Protein Urine 100 mg/dL (NEG/TRACE); Urobilinogen Urine 0.2 EU/dL (0.2-1.0)
[2025-03-07 13:24] LABS: Basophils Percent Auto 0.8 % (0.2-2.0); Eosinophils Absolute Auto 0.2 10^3/uL (0.0-0.7); Eosinophils Percent Auto 4.1 % (0.9-7.0); Hematocrit 30.5 % (36.0-48.0); Hemoglobin 8.9 g/dL (12.0-16.0); Immature Granulocytes Abs Auto 0.05 10^3/uL (0.00-0.03); Lymphocytes Absolute Auto 1.2 10^3/uL (1.2-3.8); Lymphocytes Percent Auto 25.3 % (20.5-60.0); Mean Corpuscular HGB Conc 29.2 g/dL (29.9-35.2); Mean Corpuscular Hemoglobin 29.9 pg (26.7-34.0); Mean Corpuscular Volume 102.3 fL (81.0-99.0); Mean Platelet Volume 9.9 fL (9.5-13.5); Monocytes Absolute Auto 0.6 10^3/uL (0.3-0.8); Monocytes Percent Auto 12.3 % (1.7-12.0); Neutrophils Absolute Auto 2.8 10^3/uL (1.4-6.5); Neutrophils Percent Auto 56.5 % (43.0-75.0); Platelet Count 229 10^3/uL (150-450); Red Blood Count 2.98 10^6/uL (4.20-5.40); Red Cell Distribution Width 15.3 % (11.0-15.0); White Blood Count 4.9 10^3/uL (4.0-11.0)
[2025-03-07 13:30] LABS: Bacteria Urine TRACE #/HPF (NONE SEEN); Cast Seen? NONE SEEN #/LPF (NONE SEEN); Crystals Seen? None Seen #/HPF (None Seen); Mucus Urine NONE SEEN (NONE SEEN); RBC Urine 0-2 #/HPF (0-2); Squamous Epithelial Cell Urine RARE #/LPF (NONE/RARE); WBC Urine 50-75 #/HPF (NONE SEEN)
[2025-03-07 13:31] LABS: Urine Culture Indicated YES-FRMC
[2025-03-07 13:34] LABS: Anion Gap 11.4; BUN Creatinine Ratio 20.9; Calcium 8.8 mg/dL (8.5-10.1); Carbon Dioxide 30.9 mmol/L (21.0-32.0); Chloride 106 mmol/L (98-107); Estimated GFR (African America 15 (>=60 mL/min/1.73m^2); Estimated GFR (Non-African Ame 12 (>=60 mL/min/1.73m^2); Glucose 149 mg/dL (74-106); Potassium 5.3 mmol/L (3.5-5.1); Sodium 143 mmol/L (136-145)
[2025-03-07] MEDS: 0.9 % SODIUM CHLORIDE 500 ML IV (13:52)
[2025-03-07] MEDS: CEFTRIAXONE 1,000 MG in 0.9 % SODIUM CHLORIDE 50 ML 100 MG IV (14:17)
[2025-03-07] MEDS: 0.9 % SODIUM CHLORIDE 1,000 ML 125 ML IV (14:51)
[2025-03-07] MEDS: 0.9 % SODIUM CHLORIDE 1,000 ML 100 ML IV (16:23)
[2025-03-07 17:13] LABS: Glucometer 120 mg/dL (74-106)
[2025-03-07] MEDS: PREDNISONE 20 MG TABLET PO (20:43)
[2025-03-07] MEDS: CARVEDILOL 12.5 MG TABLET 25 MG PO (20:43)
[2025-03-07 20:47] LABS: Glucometer 147 mg/dL (74-106)
[2025-03-07] MEDS: INSULIN GLARGINE 300 UNIT/3 ML INSULN.PEN 46 UNIT SQ (21:08)
[2025-03-07] MEDS: THEOPHYLLINE ANHYDROUS 400 MG TAB.ER.24H PO (21:08)
[2025-03-07] MEDS: ATORVASTATIN CALCIUM 40 MG TABLET 80 MG PO (21:08)
[2025-03-07] MEDS: BACLOFEN 10 MG TABLET PO (21:08)
[2025-03-07] MEDS: ENOXAPARIN SODIUM 30 MG/0.3 ML SYRINGE SUBQ (21:08)
[2025-03-07] MEDS: INSULIN ASPART 300 UNIT/3 ML PEN SUBQ (21:09)
[2025-03-07] MEDS: MONTELUKAST SODIUM 10 MG TABLET PO (21:11)
[2025-03-08] VITALS (9 sets, daily range): BP systolic 146–167; BP diastolic 54–89; PULSE 60–87; TEMP 36.4–36.9; O2SAT 90–95
[2025-03-08] MEDS: 0.9 % SODIUM CHLORIDE 1,000 ML 100 ML IV ×3 (01:23→21:39)
[2025-03-08] MEDS: BACLOFEN 10 MG TABLET PO ×2 (05:09→21:40)
[2025-03-08 06:25] LABS: Hemoglobin 9.2 g/dL (12.0-16.0); Mean Corpuscular HGB Conc 29.7 g/dL (29.9-35.2); Mean Corpuscular Hemoglobin 30.5 pg (26.7-34.0); Mean Corpuscular Volume 102.6 fL (81.0-99.0); Mean Platelet Volume 10.2 fL (9.5-13.5); Platelet Count 226 10^3/uL (150-450); Red Blood Count 3.02 10^6/uL (4.20-5.40); Red Cell Distribution Width 15.1 % (11.0-15.0); White Blood Count 5.8 10^3/uL (4.0-11.0)
[2025-03-08 06:44] LABS: Alanine Aminotransferase 14 U/L (14-59); Albumin Globulin Ratio 0.7; Albumin Level 2.3 g/dL (3.4-5.0); Alkaline Phosphatase 89 U/L (46-116); Anion Gap 12.5; Aspartate Amino Transferase 9 U/L (15-37); BUN Creatinine Ratio 23.1; Bilirubin Total 0.3 mg/dL (0.2-1.0); Calcium 9.1 mg/dL (8.5-10.1); Carbon Dioxide 28.3 mmol/L (21.0-32.0); Chloride 107 mmol/L (98-107); Estimated GFR (African America 17 (>=60 mL/min/1.73m^2); Estimated GFR (Non-African Ame 14 (>=60 mL/min/1.73m^2); Globulin 3.5 g/dL; Glucose 157 mg/dL (74-106); Potassium 5.8 mmol/L (3.5-5.1); Sodium 142 mmol/L (136-145); Total Protein 5.8 g/dL (6.4-8.2)
[2025-03-08 06:56] LABS: Percent Iron Saturation 16.6 %
[2025-03-08 07:05] LABS: Basophils Abs Manual 0.17 10^3/uL (0.00-0.10); Lymphocytes Absolute Manual 0.34 10^3/uL (1.20-3.80); Monocytes Absolute Manual 0.05 10^3/uL (0.30-0.80); Segmented Neut Absolute Manual 5.22 10^3/uL (1.4-6.5)
[2025-03-08 07:06] LABS: Macrocytosis 2+
[2025-03-08 08:40] LABS: Glucometer 142 mg/dL (74-106)
[2025-03-08] MEDS: ENSURE ORIGINAL 237 ML BOTTLE PO (09:39)
[2025-03-08] MEDS: BUDESONIDE 0.5 MG/2 ML AMPULE NEB IH ×2 (10:45→22:13)
[2025-03-08] MEDS: ALBUTEROL SULFATE 2.5 MG/3 ML VIAL NEB IH ×2 (10:45→22:13)
[2025-03-08 11:21] LABS: Glucometer 140 mg/dL (74-106)
[2025-03-08] MEDS: ACETAMINOPHEN 500 MG TABLET 1000 MG PO ×2 (11:22→17:38)
[2025-03-08] MEDS: PANTOPRAZOLE SODIUM 40 MG TABLET.DR PO (11:22)
[2025-03-08] MEDS: CARVEDILOL 12.5 MG TABLET 25 MG PO ×2 (11:22→21:40)
[2025-03-08] MEDS: ALLOPURINOL 100 MG TABLET 200 MG PO (11:23)
[2025-03-08] MEDS: PREDNISONE 20 MG TABLET PO ×2 (11:23→21:40)
[2025-03-08] MEDS: PREGABALIN 75 MG CAPSULE PO (11:24)
[2025-03-08] MEDS: SENNOSIDES 8.6 MG TABLET PO (11:24)
[2025-03-08] MEDS: HYDROXYZINE HCL 25 MG TABLET PO (11:24)
[2025-03-08] MEDS: LINEZOLID IN DEXTROSE 5% 600 MG/300 ML PIGGYBACK 300 MG IV (12:44)
[2025-03-08] MEDS: SODIUM ZIRCONIUM CYCLOSILICATE 10 GM POWD.PACK PO (12:44)
[2025-03-08 13:52] LABS: A. calcoaceticus-baumannii Cpx NOT DETECTED (NOT DETECTE); Bacteroides fragilis NOT DETECTED (NOT DETECTE); Candida albicans NOT DETECTED (NOT DETECTE); Candida auris NOT DETECTED (NOT DETECTE); Candida glabrata NOT DETECTED (NOT DETECTE); Candida krusei NOT DETECTED (NOT DETECTE); Candida parapsilosis NOT DETECTED (NOT DETECTE); Candida tropicalis NOT DETECTED (NOT DETECTE); Cryptococcus neoformans/gattii NOT DETECTED (NOT DETECTE); Enterobacter cloacae complex NOT DETECTED (NOT DETECTE); Enterobacterales NOT DETECTED (NOT DETECTE); Enterococcus faecalis NOT DETECTED (NOT DETECTE); Enterococcus faecium NOT DETECTED (NOT DETECTE); Haemophilus influenzae NOT DETECTED (NOT DETECTE); Klebsiella aerogenes NOT DETECTED (NOT DETECTE); Klebsiella pneumoniae group NOT DETECTED (NOT DETECTE); Listeria monocytogenes NOT DETECTED (NOT DETECTE); Neisseria meningitidis NOT DETECTED (NOT DETECTE); Proteus spp. NOT DETECTED (NOT DETECTE); Pseudomonas aeruginosa NOT DETECTED (NOT DETECTE); Salmonella spp. NOT DETECTED (NOT DETECTE); Serratia marcescens NOT DETECTED (NOT DETECTE); Staphylococcus lugdunensis NOT DETECTED (NOT DETECTE); Stenotrophomonas maltophilia NOT DETECTED (NOT DETECTE); Streptococcus agalactiae NOT DETECTED (NOT DETECTE); Streptococcus pneumoniae NOT DETECTED (NOT DETECTE); Streptococcus pyogenes NOT DETECTED (NOT DETECTE); Streptococcus spp. NOT DETECTED (NOT DETECTE)
[2025-03-08] MEDS: IRON SUCROSE COMPLEX 200 MG in 0.9 % SODIUM CHLORIDE 100 ML 220 MG IV (13:55)
--- NOTE | 2025-03-08 13:55 | P.HP_ITS ---
HPI H&P: HPI History of Present Illness Chief complaint: Acute Kidney Injury UTI Narrative: 84 y/o female to ER with weakness. Resides in ECF and nonambulatory. Reports increased weakness in legs and hard to move legs. Recently with recurrent UTI and VRE in January. To ER and labs show RENÉ. Hgb low but stable at 8.9. UA showed UTI and admitted. Started rocephin initially then added Linezolid based on last urine culture. Resumed home medication. Started IV fluids for RENÉ. Patient with altered mental status and very confused today. Opioid HPI Opioid Management Most Recent Pain and Opioid Data: Last Pain Scale 0 03/08/25 12:43 03/08/25 Last Pain Intensity 4 11/27/24 11:35 11/27/24 Last Pain Assessment 03/08/25 12:29 Last MAR Pain Assessment 03/08/25 12:43 Last ORT Total Score 0 03/07/25 15:15 03/07/25 Last ORT Risk Category Low Risk 03/07/25 15:15 03/07/25 Review of Systems ROS Status of ROS unobtainable due to mental status PFSH PFSH Medical History (Updated 03/08/25 @ 11:06 by Kvng Zamora MD) Transient confusion ?R41.0 - Disorientation, unspecified (ICD-10) Unwitnessed fall ?R29.6 - Repeated falls (ICD-10) Urinary tract infection ?N39.0 - Urinary tract infection, site not specified (ICD-10) Inflammatory arthritis ?M19.90 - Unspecified osteoarthritis, unspecified site (ICD-10) Atypical chest pain ?R07.89 - Other chest pain (ICD-10) Left-sided chest pain ?R07.9 - Chest pain, unspecified (ICD-10) Left arm pain ?M79.602 - Pain in left arm (ICD-10) Left wrist pain ?M25.532 - Pain in left wrist (ICD-10) Chest pain ?R07.9 - Chest pain, unspecified (ICD-10) Generalized weakness ?R53.1 - Weakness (ICD-10) Altered mental status ?R41.82 - Altered mental status, unspecified (ICD-10) Acute kidney failure ?N17.9 - Acute kidney failure, unspecified (ICD-10) HLD (hyperlipidemia) ?E78.5 - Hyperlipidemia, unspecified (ICD-10) Constipation due to opioid therapy ?K59.03 - Drug induced constipation (ICD-10) ?T40.2X5A - Adverse effect of other opioids, initial encounter (ICD-10) Chronic use of opiate drug for therapeutic purpose ?Z79.891 - supervisor intermediates (current) use of opiate analgesic (ICD-10) Lumbar stenosis with neurogenic claudication ?M48.062 - Spinal stenosis, lumbar region with neurogenic claudication (ICD- 10) Diabetes ?E11.9 - Type 2 diabetes mellitus without complications (ICD-10) HTN (hypertension) ?I10 - Essential (primary) hypertension (ICD-10) Chronic prescription opiate use ?Z79.891 - supervisor intermediates (current) use of opiate analgesic (ICD-10) Lumbar radiculopathy, chronic ?M54.16 - Radiculopathy, lumbar region (ICD-10) Complication of electrolyte disorder ?E87.8 - Other disorders of electrolyte and fluid balance, not elsewhere classified (ICD-10) Concussion ?S06.0XAA - Concussion with loss of consciousness status unknown, initial encounter (ICD-10) Bilateral knee pain ?M25.561 - Pain in right knee (ICD-10) ?M25.562 - Pain in left knee (ICD-10) Muscle spasm ?M62.838 - Other muscle spasm (ICD-10) Lumbar spondylosis ?M47.816 - Spondylosis without myelopathy or radiculopathy, lumbar region (ICD-10) Knee osteoarthritis ?M17.9 - Osteoarthritis of knee, unspecified (ICD-10) Chronic kidney disease ?N18.9 - Chronic kidney disease, unspecified (ICD-10) Acute neck pain ?M54.2 - Cervicalgia (ICD-10) Head injury due to trauma ?S09.90XA - Unspecified injury of head, initial encounter (ICD-10) Urinary tract infection ?N39.0 - Urinary tract infection, site not specified (ICD-10) GERD without esophagitis ?K21.9 - Gastro-esophageal reflux disease without esophagitis (ICD-10) Gout due to renal impairment ?M10.30 - Gout due to renal impairment, unspecified site (ICD-10) Osteoarthritis ?M19.90 - Unspecified osteoarthritis, unspecified site (ICD-10) Anemia ?D64.9 - Anemia, unspecified (ICD-10) Carpal tunnel syndrome ?G56.00 - Carpal tunnel syndrome, unspecified upper limb (ICD-10) Acid reflux ?K21.9 - Gastro-esophageal reflux disease without esophagitis (ICD-10) Cirrhosis of liver ?K74.60 - Unspecified cirrhosis of liver (ICD-10) Kidney stone ?N20.0 - Calculus of kidney (ICD-10) Kidney failure ?N19 - Unspecified kidney failure (ICD-10) Asthma ?J45.909 - Unspecified asthma, uncomplicated (ICD-10) High cholesterol ?E78.00 - Pure hypercholesterolemia, unspecified (ICD-10) Surgical History History of appendectomy ?Z90.49 - Acquired absence of other specified parts of digestive tract (ICD- 10) History of hysterectomy ?Z90.710 - Acquired absence of both cervix and uterus (ICD-10) History of neck surgery ?Z98.890 - Other specified postprocedural states (ICD-10) Hx of cholecystectomy ?Z90.49 - Acquired absence of other specified parts of digestive tract (ICD- 10) History of lumbar laminectomy ?Z98.890 - Other specified postprocedural states (ICD-10) History of cardiac cath ?Z98.890 - Other specified postprocedural states (ICD-10) Family History Father Family history of CHF (congestive heart failure) Family history of COPD (chronic obstructive pulmonary disease) Family history of cancer Family history of diabetes mellitus Family history of hypertension Mother Family history of diabetes mellitus Family history of hypertension Family history of myocardial infarction Sister Family history of myocardial infarction Social History Within the past year, how often did you have a drink containing alcohol: never Score interpretation: A score less than 3 is consistent with normal alcohol consumption. Smoking status: Never smoker Non-prescribed substance use: denies use Previous occupational history: retired Highest level of school completed/degree received: Associate degree: occupational, technical, vocational program Are you now , , , , never or living with a partner: Little interest or pleasure in doing things: not at all Feeling down, depressed, or hopeless: not at all Do you think of yourself as: straight/heterosexual Gender Identity: female Meds Home Medications and Allergies Home Medications ?Medication ?Instructions ?Recorded ?Confirmed ?Type aspirin 81 mg tablet,delayed 81 mg PO DAILY 04/26/23 03/07/25 History release atorvastatin 80 mg tablet 80 mg PO DAILY 04/26/23 03/07/25 History insulin lispro 100 unit/mL 6 unit subcut BIDWM 04/26/23 03/07/25 History subcutaneous pen theophylline 400 mg 400 mg PO .QHS 04/26/23 03/07/25 History tablet,extended release 24 hr fluticasone furoate 200 1 inh inhalation Q24H 11/24/24 03/07/25 History mcg-vilanterol 25 mcg/dose inhalation powder (Breo Ellipta) insulin glargine 100 unit/mL (3 46 unit subcut .qhs 11/24/24 03/07/25 History mL) subcutaneous pen (Lantus Solostar U-100 Insulin) montelukast 10 mg tablet 10 mg PO .QHS 11/24/24 03/07/25 History pregabalin 75 mg capsule (Lyrica) 75 mg PO DAILY 11/24/24 03/07/25 History pantoprazole 40 mg tablet,delayed 40 mg PO DAILY #30 tabs 12/09/24 03/07/25 Rx release (Protonix) acetaminophen 500 mg tablet 1,000 mg PO .q8hr PRN pain 01/02/25 03/07/25 History albuterol 90 mcg/actuation aerosol 90 mcg inhalation Q4H PRN sob 01/02/25 03/07/25 History inhaler baclofen 10 mg tablet 10 mg PO TID #0 tabs 01/02/25 03/07/25 Rx carvedilol 12.5 mg tablet 25 mg PO BID 01/02/25 03/07/25 History hydroxyzine HCl 25 mg tablet 25 mg PO QID PRN itching 01/02/25 03/07/25 History lisinopril 40 mg tablet 40 mg PO DAILY 01/02/25 03/07/25 History ondansetron 4 mg disintegrating 4 mg PO Q6H PRN nausea and vomiting 01/02/25 03/07/25 History tablet sennosides 8.6 mg tablet 8.6 mg PO BID 01/02/25 03/07/25 History (Black-Draught Lax-Senna) allopurinol 100 mg tablet 200 mg PO .QD 01/04/25 03/07/25 History cephalexin 250 mg capsule 250 mg PO Q12H 7 days #14 caps 01/06/25 03/07/25 Rx prednisone 20 mg tablet 20 mg PO BID 7 days #14 tabs 01/06/25 03/07/25 Rx food supplemt, lactose-reduced 1 ea PO TID 01/08/25 03/07/25 History (Ensure Active Protein-Muscle oral liquid) Allergies Allergy/AdvReac Type Severity Reaction Status Date / Time adhesive tape Allergy Unknown rash Verified 03/07/25 13:33 povidone-iodine (From Allergy Unknown Rash Verified 03/07/25 13:33 Betadine) red dye Allergy Unknown Rash Verified 03/07/25 13:33 Sulfa (Sulfonamide Allergy Unknown Rash Verified 03/07/25 13:33 Antibiotics) tetracycline Allergy Unknown Rash Verified 03/07/25 13:33 Exam Constitutional Vital Signs, click to edit/add: Last Vital Signs Temp 97.7 F 03/08/25 12:29 Pulse 75 03/08/25 12:29 Resp 18 03/08/25 12:29 BP 148/81 H 03/08/25 12:29 Pulse Ox 93 L 03/08/25 12:29 O2 Del Method Nasal Cannula 03/08/25 12:29 O2 Flow Rate 3 03/08/25 12:29 Documenting provider has reviewed patient's vital signs: yes Common normals: no apparent distress and alert [facility] Common normals: normocephalic Eye Common normals: PERRL and EOMs intact bilaterally Respiratory Common normals: normal respiratory effort and clear to auscultation bilaterally Cardio Common normals: regular rate, regular rhythm, no gallops, no murmurs and no rub GI Common normals: Normal to inspection, nondistended, normoactive bowel sounds present and non-tender Extremity Common normals: no pedal edema Results Labs Labs: Short CBC 03/08/25 Range/Units 06:19 WBC 5.8 (4.0-11.0) 10^3/uL Hgb 9.2 L (12.0-16.0) g/dL Hct 31.0 L (36.0-48.0) % Plt Count 226 (150-450) 10^3/uL BMP 03/08/25 06:19 Sodium 142 Potassium 5.8 H Chloride 107 Carbon Dioxide 28.3 BUN 74.0 H Creatinine 3.21 H Glucose 157 H Calcium 9.1 Liver Function 03/08/25 Range/Units 06:19 Total Bilirubin 0.3 (0.2-1.0) mg/dL AST 9 L (15-37) U/L ALT 14 (14-59) U/L Alkaline Phosphatase 89 (46-116) U/L Albumin 2.3 L (3.4-5.0) g/dL Assessment and Plan Assessment and Plan (1) Urinary tract infection: (2) Acute kidney injury: (3) Hyperkalemia: (4) Iron deficiency anemia: (5) History of infection with vancomycin resistant Enterococcus (VRE): (6) Type 2 diabetes mellitus with hyperglycemia: (7) Hypertension: (8) COPD (chronic obstructive pulmonary disease): Qualifiers: COPD type: unspecified COPD Qualified Code(s): J44.9 - Chronic obstructive pulmonary disease, unspecified (9) Chronic respiratory failure with hypoxia: (10) Generalized weakness: (11) CKD stage 3b, GFR 30-44 ml/min: (12) Morbid obesity: Plan Currently with altered mental status and possible related to UTI. Continue rocephin and linezolid while awaiting culture. Labs show iron def and give IV iron. Potassium elevated and give lokelma. Hold lisinopril due to renal function but resume home meds. Continue IV fluids. Start PT/OT for weakness. Plan for at least a 2 midnight stay for inpatient medically necessary servicses. Urinary Catheter Management Urinary Catheter Management Straight: Cath placed during this visit: yes Urethral indwelling: Yes Reason for continuing: acute urinary retention Insertion date: 03/07/25 Insertion time: 13:23
[2025-03-08] MEDS: ZIPRASIDONE MESYLATE 20 MG VIAL IM (14:00)
[2025-03-08] MEDS: CEFTRIAXONE 1,000 MG in 0.9 % SODIUM CHLORIDE 50 ML 100 MG IV (14:46)
[2025-03-08 15:01] LABS: Source Blood
[2025-03-08 15:04] LABS: Staphylococcus epidermidis DETECTED (NOT DETECTE); Staphylococcus spp. DETECTED (NOT DETECTE); mecA/C DETECTED (NOT DETECTE)
[2025-03-08 15:35] LABS: Glucometer 167 mg/dL (74-106)
[2025-03-08 19:48] LABS: Glucometer 240 mg/dL (74-106)
[2025-03-08] MEDS: ENOXAPARIN SODIUM 30 MG/0.3 ML SYRINGE SUBQ (21:39)
[2025-03-08] MEDS: MONTELUKAST SODIUM 10 MG TABLET PO (21:40)
[2025-03-08] MEDS: ATORVASTATIN CALCIUM 40 MG TABLET 80 MG PO (21:40)
[2025-03-08] MEDS: THEOPHYLLINE ANHYDROUS 400 MG TAB.ER.24H PO (21:40)
[2025-03-08] MEDS: INSULIN ASPART 300 UNIT/3 ML PEN SUBQ (21:46)
[2025-03-08] MEDS: LINEZOLID IN DEXTROSE 5% 600 MG/300 ML PIGGYBACK 150 MG IV (23:07)
[2025-03-09] VITALS (10 sets, daily range): BP systolic 143–160; BP diastolic 45–90; PULSE 72–90; TEMP 36.4–36.8; O2SAT 90–95
[2025-03-09] MEDS: ALBUTEROL SULFATE 2.5 MG/3 ML VIAL NEB IH ×4 (05:01→22:19)
[2025-03-09 07:00] LABS: Alanine Aminotransferase 7 U/L (14-59); Albumin Globulin Ratio 0.8; Albumin Level 2.7 g/dL (3.4-5.0); Alkaline Phosphatase 87 U/L (46-116); Anion Gap 14.3; Aspartate Amino Transferase 12 U/L (15-37); BUN Creatinine Ratio 27.7; Bilirubin Total 0.4 mg/dL (0.2-1.0); Calcium 9.1 mg/dL (8.5-10.1); Chloride 107 mmol/L (98-107); Estimated GFR (African America 23 (>=60 mL/min/1.73m^2); Estimated GFR (Non-African Ame 19 (>=60 mL/min/1.73m^2); Globulin 3.4 g/dL; Glucose 171 mg/dL (74-106); Potassium 5.3 mmol/L (3.5-5.1); Sodium 143 mmol/L (136-145); Total Protein 6.1 g/dL (6.4-8.2)
[2025-03-09 07:07] LABS: Basophils Percent Auto 0.8 % (0.2-2.0); Hematocrit 29.4 % (36.0-48.0); Hemoglobin 8.8 g/dL (12.0-16.0); Immature Granulocytes Abs Auto 0.18 10^3/uL (0.00-0.03); Immature Granulocytes Pct Auto 3.6 % (0.0-0.5); Lymphocytes Absolute Auto 0.6 10^3/uL (1.2-3.8); Lymphocytes Percent Auto 11.3 % (20.5-60.0); Mean Corpuscular HGB Conc 29.9 g/dL (29.9-35.2); Mean Corpuscular Volume 100.3 fL (81.0-99.0); Monocytes Absolute Auto 0.2 10^3/uL (0.3-0.8); Neutrophils Percent Auto 81.3 % (43.0-75.0); Platelet Count 221 10^3/uL (150-450); Red Blood Count 2.93 10^6/uL (4.20-5.40)
[2025-03-09] MEDS: HYDRALAZINE HCL 20 MG/ML VIAL 10 MG IVP (08:58)
[2025-03-09] MEDS: 0.9 % SODIUM CHLORIDE 1,000 ML 100 ML IV (08:59)
--- NOTE | 2025-03-09 09:28 | SWNOTE1 ---
SW reached out to Gillian at [facility], pt is from there skilled.
--- NOTE | 2025-03-09 09:38 | P.PN_ITS ---
Progress Note: Subjective Subjective Interval history: Patient unchanged this am. Remains confused and lethargic. Responds to painful stimuli but not verbal. Afebrile. Vitals stable. Urine culture pending. Nurse having difficulty getting patient to take oral medication. Agitated during day yesterday and given IM geodon. Exam Constitutional Vital Signs, click to edit/add: Last Vital Signs Temp 98 F 03/09/25 07:53 Pulse 89 03/09/25 07:53 Resp 20 03/09/25 07:53 BP 160/45 H 03/09/25 08:58 Pulse Ox 91 L 03/09/25 07:53 O2 Del Method Nasal Cannula 03/09/25 07:53 O2 Flow Rate 3 03/09/25 07:53 Documenting provider has reviewed patient's vital signs: yes Exam limitations: altered mental status General appearance: lethargic HENMT Common normals: normocephalic Eye Common normals: PERRL and EOMs intact bilaterally Respiratory Common normals: normal respiratory effort and clear to auscultation bilaterally Cardio Common normals: regular rate, regular rhythm, no gallops, no murmurs and no rub GI Common normals: Normal to inspection, nondistended, normoactive bowel sounds present and non-tender Extremity Common normals: no pedal edema Progress Note: Objective Labs Labs: Short CBC 03/09/25 Range/Units 07:01 WBC 5.0 (4.0-11.0) 10^3/uL Hgb 8.8 L (12.0-16.0) g/dL Hct 29.4 L (36.0-48.0) % Plt Count 221 (150-450) 10^3/uL BMP 03/09/25 06:17 Sodium 143 Potassium 5.3 H Chloride 107 Carbon Dioxide 27.0 BUN 67.0 H Creatinine 2.42 H Glucose 171 H Calcium 9.1 Liver Function 03/09/25 Range/Units 06:17 Total Bilirubin 0.4 (0.2-1.0) mg/dL AST 12 L (15-37) U/L ALT 7 L (14-59) U/L Alkaline Phosphatase 87 (46-116) U/L Albumin 2.7 L (3.4-5.0) g/dL Progress Note: A&P Assessment and Plan (1) Urinary tract infection: (2) Acute kidney injury: (3) Hyperkalemia: (4) Iron deficiency anemia: (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 Continue IV antibiotics and await culture res ults. Renal function improving and continue IV fluids. Continued anemia but stable. Remains on oxygen. Urinary Catheter Management Urinary Catheter Management Straight: Cath placed during this visit: yes Urethral indwelling: Yes Reason for continuing: measure accurate output Insertion date: 03/07/25 Insertion time: 13:23 Urethral: Cath placed during this visit: no
[2025-03-09] MEDS: BUDESONIDE 0.5 MG/2 ML AMPULE NEB IH ×2 (10:11→22:19)
[2025-03-09 10:54] LABS: Glucometer 153 mg/dL (74-106)
[2025-03-09] MEDS: LINEZOLID IN DEXTROSE 5% 600 MG/300 ML PIGGYBACK 100 MG IV (11:05)
--- NOTE | 2025-03-09 11:29 | SWNOTE1 ---
Important Message from Medicare reviewed and discussed with patient's . Pt's verbalized understanding and signed the form. Original given to patient's and copy placed in patient?s chart.
--- NOTE | 2025-03-09 11:29 | SWNOTE1 ---
SW met with pt's to discuss dc plans. Pt was sleeping at the time. Pt's voiced frustrations with pt not getting better and pt having recurrent UTI'S. Pt has been at [facility] since 11/28/24. voiced that she does continue to decline. He voiced he is unsure of what to do. He stated her PCP is trying to get ahead of the UTI's but is having a hard time. SW and pt spoke about pt's 100 skilled days running out. He stated her last skilled day will be March 16, she will then transition in to manager long term care care at [facility]. Pt's voiced he has not been sleeping well either. They have been for 60+ years. He stated the last time she had been home was in November. Pt's does have children for support, but again just voiced he is frustrated. He also voiced she has been confused, yesterday she could not even give nurse her name. Pt sleeping at this time, SW did not assess. Advised pt's that SW will check back tomorrow and will update [facility] with how she is doing.
[2025-03-09] MEDS: SCOPOLAMINE 1 MG/3 DAYS TRANSDERM PATCH 1 PATCH TD (11:53)
[2025-03-09] MEDS: ZIPRASIDONE MESYLATE 20 MG VIAL IM ×2 (11:53→22:06)
[2025-03-09] MEDS: WATER FOR INJECTION, STERILE 20 ML VIAL INJ ×2 (11:54→22:06)
[2025-03-09 13:13] LABS: Vitamin B12 892 pg/mL (232-1245)
[2025-03-09] MEDS: CEFTRIAXONE 1,000 MG in 0.9 % SODIUM CHLORIDE 50 ML 100 MG IV (14:11)
[2025-03-09 16:51] LABS: Glucometer 150 mg/dL (74-106)
[2025-03-09] MEDS: ZINC OXIDE 30% CREAM 113.4 GM TUBE 1 APPLIC TOPICAL (17:56)
[2025-03-09] MEDS: ENOXAPARIN SODIUM 30 MG/0.3 ML SYRINGE SUBQ (21:44)
[2025-03-09 22:13] LABS: Glucometer 123 mg/dL (74-106)
[2025-03-09] MEDS: LINEZOLID IN DEXTROSE 5% 600 MG/300 ML PIGGYBACK 300 MG IV (23:28)
[2025-03-10] VITALS (8 sets, daily range): BP systolic 118–182; BP diastolic 48–67; PULSE 72–91; TEMP 36.3–37.1; O2SAT 90–94; BMI 48.1
[2025-03-10] MEDS: ALBUTEROL SULFATE 2.5 MG/3 ML VIAL NEB IH ×4 (04:50→22:38)
[2025-03-10] MEDS: HYDRALAZINE HCL 20 MG/ML VIAL 10 MG IVP (06:31)
[2025-03-10] MEDS: 0.9 % SODIUM CHLORIDE 1,000 ML 50 ML IV (06:31)
[2025-03-10 06:53] LABS: Basophils Absolute Auto 0.1 10^3/uL (0.0-0.1); Basophils Percent Auto 1.2 % (0.2-2.0); Eosinophils Absolute Auto 0.1 10^3/uL (0.0-0.7); Eosinophils Percent Auto 2.7 % (0.9-7.0); Hematocrit 31.1 % (36.0-48.0); Hemoglobin 9.2 g/dL (12.0-16.0); Immature Granulocytes Abs Auto 0.17 10^3/uL (0.00-0.03); Immature Granulocytes Pct Auto 3.3 % (0.0-0.5); Lymphocytes Absolute Auto 1.1 10^3/uL (1.2-3.8); Lymphocytes Percent Auto 21.3 % (20.5-60.0); Mean Corpuscular HGB Conc 29.6 g/dL (29.9-35.2); Mean Corpuscular Hemoglobin 29.8 pg (26.7-34.0); Mean Corpuscular Volume 100.6 fL (81.0-99.0); Mean Platelet Volume 9.8 fL (9.5-13.5); Monocytes Absolute Auto 0.6 10^3/uL (0.3-0.8); Monocytes Percent Auto 11.6 % (1.7-12.0); Neutrophils Absolute Auto 3.1 10^3/uL (1.4-6.5); Neutrophils Percent Auto 59.9 % (43.0-75.0); Platelet Count 205 10^3/uL (150-450); Red Blood Count 3.09 10^6/uL (4.20-5.40); Red Cell Distribution Width 15.4 % (11.0-15.0); White Blood Count 5.2 10^3/uL (4.0-11.0)
[2025-03-10 07:01] LABS: Magnesium 1.9 mg/dL (1.8-2.4)
[2025-03-10 07:12] LABS: Alanine Aminotransferase 9 U/L (14-59); Albumin Globulin Ratio 0.7; Albumin Level 2.5 g/dL (3.4-5.0); Alkaline Phosphatase 80 U/L (46-116); Anion Gap 11.6; Aspartate Amino Transferase 12 U/L (15-37); BUN Creatinine Ratio 31.2; Bilirubin Total 0.2 mg/dL (0.2-1.0); Calcium 9.1 mg/dL (8.5-10.1); Chloride 111 mmol/L (98-107); Estimated GFR (African America 31 (>=60 mL/min/1.73m^2); Estimated GFR (Non-African Ame 25 (>=60 mL/min/1.73m^2); Globulin 3.4 g/dL; Glucose 130 mg/dL (74-106); Potassium 4.6 mmol/L (3.5-5.1); Sodium 145 mmol/L (136-145); Total Protein 5.9 g/dL (6.4-8.2)
[2025-03-10] MEDS: ZIPRASIDONE MESYLATE 20 MG VIAL IM (08:15)
--- NOTE | 2025-03-10 10:20 | SWNOTE1 ---
AYAH spoke with pt's and doctor in [facility]. Pt's is interested in having hospice involved. Doctor explained hospice services. SW to bring pamphlets to . SW took hospice pamphlets to room and list of hospice companies to pt's . Pt's advised AYAH that his daughter will be in later this afternoon and would like SW to come back once she arrives. AYAH updated nurse.
--- NOTE | 2025-03-10 10:35 | PM.PN ---
Progress Note: Subjective Subjective Interval history: Patient unchanged overnight. Remains confused and lethargic. Started to have episodes of agitation and moaning. This am c/o pain and hurt all over. Getting IM geodon which helps. Afebrile. Vitals stable. Urine culture showed UTI due to E. coli but sensitive to Rocephin. Discussed condition and prognosis with . Exam Constitutional Vital Signs, click to edit/add: Last Vital Signs Temp 97.3 F L 03/10/25 08:00 Pulse 81 03/10/25 08:00 Resp 18 03/10/25 08:00 BP 150/67 H 03/10/25 08:00 Pulse Ox 91 L 03/10/25 08:00 O2 Del Method Nasal Cannula 03/10/25 08:00 O2 Flow Rate 3 03/10/25 08:00 General appearance: lethargic HENMT Common normals: normocephalic Eye Common normals: PERRL and EOMs intact bilaterally Respiratory Common normals: normal respiratory effort and clear to auscultation bilaterally Cardio Common normals: regular rate, regular rhythm, no gallops, no murmurs and no rub GI Common normals: Normal to inspection, nondistended, normoactive bowel sounds present and non-tender Extremity Common normals: no pedal edema Progress Note: Objective Labs Labs: Short CBC 03/10/25 Range/Units 06:34 WBC 5.2 (4.0-11.0) 10^3/uL Hgb 9.2 L (12.0-16.0) g/dL Hct 31.1 L (36.0-48.0) % Plt Count 205 (150-450) 10^3/uL BMP 03/10/25 06:34 Sodium 145 Potassium 4.6 Chloride 111 H Carbon Dioxide 27.0 BUN 59.0 H Creatinine 1.89 H Glucose 130 H Calcium 9.1 Liver Function 03/10/25 Range/Units 06:34 Total Bilirubin 0.2 (0.2-1.0) mg/dL AST 12 L (15-37) U/L ALT 9 L (14-59) U/L Alkaline Phosphatase 80 (46-116) U/L Albumin 2.5 L (3.4-5.0) g/dL Progress Note: A&P Assessment and Plan (1) Urinary tract infection: (2) Acute kidney injury: (3) Hyperkalemia: (4) Iron deficiency anemia: (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 coli but sensitive to Rocephin. Stop zyvox. Renal function improving and hgb stable. Magnesium low and replace. Remains altered and not responding to treatment of UTI. Discussed prognosis and options with . Will consult hospice for possible comfort care. Start Roxanol for agitation and comfort. Scopolamine patch added for secretions. Urinary Catheter Management Urinary Catheter Management Straight: Cath placed during this visit: yes Urethral indwelling: Yes Reason for continuing: end of life care Insertion date: 03/07/25 Insertion time: 13:23 Urethral: Cath placed during this visit: no
--- NOTE | 2025-03-10 10:46 | CM.NOTE ---
Rounds made with Dr. Zamora. Dr. Zamora discussed treatment plan with and will add a different pain med and also discussed urine cx results and that Adore has been on an appropriate antibiotic for the past few days with little improvement. Dr. Zamora discussed the decline in Adore's health with . The discussed possibly looking at Hospice. James, the nephrology social worker was present and will provide the with some Hospice options. Mail Messenger notified Dr. Zamora that Adore was getting MagSo4 infusions weekly if Magnesium less than 2mg/dl ordered by Gia Conley MD. 03/10/[address] Zamroa to order IV Magnesium. No discharge planned today.
[2025-03-10] MEDS: BUDESONIDE 0.5 MG/2 ML AMPULE NEB IH ×2 (11:14→22:38)
[2025-03-10 11:28] LABS: Glucometer 115 mg/dL (74-106)
[2025-03-10] MEDS: MAGNESIUM SULFATE IN WATER 2 GM/50 ML PREMIX IV (11:49)
[2025-03-10] MEDS: MORPHINE SULFATE 20 MG/ML ORAL CONCENTRATE BOTTLE 10 MG PO (12:13)
--- NOTE | 2025-03-10 13:32 | PC.NURSE ---
prn roxanol given to patient per orders, patient still agitated and restless, patients family requesting for her to have something else to make her comfortable, request for iv ativan made
--- NOTE | 2025-03-10 13:38 | SWNOTE1 ---
SW stopped in to check on pt and family. Pt's and sister in room. They voiced she has been agitated and is calming down some. Waiting for nurse to come back and assess to see if medication is helping. SW did speak with them about hospice again and voiced they are just waiting on daughter to get here. Pt's other daughter can't make it today and son will not be here either. They will be able to call them and update once hospice comes in. SW did speak with them about inpt unit at [facility] and that it may be beneficial for pt due to agitation and restlessness. They will let SW know once daughter arrives.
[2025-03-10] MEDS: LORAZEPAM 2 MG/ML VIAL 0.5 MG IV (14:37)
--- NOTE | 2025-03-10 14:54 | PC.NURSE ---
Dr. Zamora notified of difficult iv access. Access was re established. orders recieved to saline lock
--- NOTE | 2025-03-10 15:23 | SWNOTE1 ---
SW stopped in room. Pt's daughter and son in law in room at this time, as well as . They have just arrived. Pt's daughter did ask about hospice of [facility] in [place]. SW let them know that SW does not know too much about it, but does believe that pt will have to qualify to go there. Pt's daughter lives in [place] and this would be easier for family as pt's could stay with daughter so he can visit. They would like some time to discuss further with each other and requested SW return after awhile.
--- NOTE | 2025-03-10 16:01 | SWNOTE1 ---
AYAH stopped back in and spoke with pt's , daughter, and son in law. They have decided they would like SW to try to get pt in to the inpt part of [facility]. SW to call and see what the process is. AYAH did let pt's family know that it will likely be similar to inpt unit in [place] and they will have to determine if pt qualifies for inpt unit. They voiced understanding. AYAH called [facility] and spoke to intake. She stated SW will need to fax over information and then a nurse will review and provide to the doctor to make a final determination. She stated they will also want nurses phone number here to call in case they have questions. SW to fax over. Referral sent to [facility]. Referral included face sheet, ED note, H&P, provider notes, case management report,, nursing notes, pain assessments, diagnostic imaging, med list, DNR order, and hospice order. AYAH also provided the name and extension for nurse caring for pt here at [facility] until 7:00pm in case they need to call with further questions.
[2025-03-10 17:05] LABS: Glucometer 107 mg/dL (74-106)
[2025-03-10 20:49] LABS: Glucometer 109 mg/dL (74-106)
[2025-03-10] MEDS: ENOXAPARIN SODIUM 30 MG/0.3 ML SYRINGE SUBQ (21:58)
[2025-03-11] VITALS (7 sets, daily range): BP systolic 148–168; BP diastolic 51–54; PULSE 18–92; TEMP 36.3–36.6; O2SAT 81–97
[2025-03-11] MEDS: LORAZEPAM 2 MG/ML VIAL 0.5 MG IV (00:21)
[2025-03-11] MEDS: HYDRALAZINE HCL 20 MG/ML VIAL 10 MG IVP (00:23)
[2025-03-11] MEDS: ALBUTEROL SULFATE 2.5 MG/3 ML VIAL NEB IH ×2 (04:01→11:18)
[2025-03-11 06:52] LABS: Hematocrit 31.1 % (36.0-48.0); Hemoglobin 9.2 g/dL (12.0-16.0); Mean Corpuscular HGB Conc 29.6 g/dL (29.9-35.2); Mean Corpuscular Hemoglobin 30.4 pg (26.7-34.0); Mean Corpuscular Volume 102.6 fL (81.0-99.0); Mean Platelet Volume 10.5 fL (9.5-13.5); Platelet Count 216 10^3/uL (150-450); Red Blood Count 3.03 10^6/uL (4.20-5.40); Red Cell Distribution Width 15.6 % (11.0-15.0); White Blood Count 7.4 10^3/uL (4.0-11.0)
[2025-03-11 07:12] LABS: Alanine Aminotransferase 11 U/L (14-59); Albumin Globulin Ratio 0.7; Albumin Level 2.4 g/dL (3.4-5.0); Alkaline Phosphatase 77 U/L (46-116); Anion Gap 12.6; Aspartate Amino Transferase 16 U/L (15-37); BUN Creatinine Ratio 31.1; Bilirubin Total 0.2 mg/dL (0.2-1.0); Calcium 9.1 mg/dL (8.5-10.1); Carbon Dioxide 27.6 mmol/L (21.0-32.0); Chloride 112 mmol/L (98-107); Estimated GFR (African America 32 (>=60 mL/min/1.73m^2); Estimated GFR (Non-African Ame 26 (>=60 mL/min/1.73m^2); Globulin 3.3 g/dL; Glucose 113 mg/dL (74-106); Potassium 5.2 mmol/L (3.5-5.1); Sodium 147 mmol/L (136-145); Total Protein 5.7 g/dL (6.4-8.2)
[2025-03-11 07:24] LABS: Band Neutrophils Absolute 0.4 10^3/uL (0.0-0.3); Basophils Abs Manual 0.07 10^3/uL (0.00-0.10); Eosinophils Absolute Manual 0.07 10^3/uL (0.00-0.70); Lymphocytes Absolute Manual 0.88 10^3/uL (1.20-3.80); Metamyelocytes Absolute Manual 0.37; Monocytes Absolute Manual 0.14 10^3/uL (0.30-0.80)
[2025-03-11 07:25] LABS: Anisocytosis 1+
--- NOTE | 2025-03-11 09:25 | SWNOTE1 ---
AYAH called [facility] and spoke to Sparkle. She did receive the referral and a nurse will be reviewing the referral around 11:00am. Sparkle did speak to to let him know this information. Once the nurse reviews, they will determine if pt qualifies for inpt unit.
[2025-03-11 09:50] LABS: Magnesium 2.3 mg/dL (1.8-2.4)
--- NOTE | 2025-03-11 10:54 | CM.NOTE ---
Rounds made with Dr. Zamora, pt will discharge to inpatient Hospice today in [place], [place]. SW working with Hospice to set up transfer.
[2025-03-11] MEDS: BUDESONIDE 0.5 MG/2 ML AMPULE NEB IH (11:18)
--- NOTE | 2025-03-11 11:39 | SWNOTE1 ---
AYAH stopped to talk to . He was on phone with Joanie the nurse from hospice. Joanie stated that they will not have an opening in [place] unit, but in the [place] facility they do. Pt's voiced he is alright with this. Joanie then called AYAH and she stated they can take patient any time between 1-5, she is appropriate for inpt unit. AYAH called and set up [facility] for 12:10pm. SW asked if anything needed faxed? She stated no she has everything she needs. SW asked if a report needed called in, she stated no. AYAH stopped in and updated the patient's . SW provided address and phone number for inpt unit in [place]. SW wished family well. AYAH updated the nurse of time. AYAH also updated the [facility].
--- NOTE | 2025-03-11 11:41 | CM.NOTE ---
2nd Important Message From Medicare discussed with pt, pt denies questions or concerns.
--- NOTE | 2025-03-11 11:59 | SWNOTE1 ---
AYAH received a call from Clari the nurse and Joanie the nurse from hospice called her and they now have an opening in [place] and want the pt re-routed to come there. AYAH called [facility] and updated them. Pt is going to Inpt unit of [facility].
--- NOTE | 2025-03-11 12:02 | P.DS_ITS ---
DS: Providers Provider Date of admission: 03/07/25 15:00 Primary care physician: SHANDA CLARK Consults: 03/07/25 15:30 Occupational Therapy Eval and Treat Routine Reason for consultation: Weakness Physical Therapy Eval and Treat Routine Reason for consultation: Weakness 03/10/25 10:17 Consult to Hospice Routine Reason for consultation: Altered mental status DS: Diagnosis Discharge Diagnosis (1) Urinary tract infection: (2) Acute kidney injury: (3) Hyperkalemia: (4) Iron deficiency anemia: (5) History of infection with vancomycin resistant Enterococcus (VRE): (6) Type 2 diabetes mellitus with hyperglycemia: (7) Hypertension: (8) COPD (chronic obstructive pulmonary disease): Qualifiers: COPD type: unspecified COPD Qualified Code(s): J44.9 - Chronic obstructive pulmonary disease, unspecified (9) Chronic respiratory failure with hypoxia: (10) Generalized weakness: (11) CKD stage 3b, GFR 30-44 ml/min: (12) Morbid obesity: DS: Summary Hospital Course Hospital Course: Reason for admission: See H&P for details. 84 y/o female to ER with weakness. Resides in ECF and nonambulatory. Reports increased weakness in legs and hard to move legs. Recently with recurrent UTI and VRE in January. To ER and labs show RENÉ. Hgb low but stable at 8.9. UA showed UTI and admitted. Hospital course: Started rocephin initially then added Linezolid based on last urine culture. Resumed home medication. Started IV fluids for RENÉ. Patient with altered mental status and very confused overnight. Renal function gradually improved. Remained confused and added geodon for agitation. Urine culture showed E. coli sensitive to rocephin and Linezolid stopped. Added morphine for discomfort and restlessness. Remained confused and altered. Discussed prognosis with and patient not improving. Family decided to pursue comfort care and hospice consulted. Patient accepted and trasnferred to inpatient hospice in stable condition. Time Spent with Patient Time attestation: Total time spent providing and/or coordinating discharge services: Time spent: greater than 30 minutes Exam Constitutional Vital Signs, click to edit/add: Last Vital Signs Temp 97.3 F L 03/11/25 06:48 Pulse 78 03/11/25 06:48 Resp 22 H 03/11/25 09:56 BP 148/54 H 03/11/25 06:48 Pulse Ox 97 03/11/25 09:56 O2 Del Method Nasal Cannula 03/11/25 11:21 O2 Flow Rate 4 03/11/25 11:21 General appearance: lethargic and ill appearing HENMT Common normals: normocephalic Respiratory Common normals: normal respiratory effort and clear to auscultation bilaterally Cardio Common normals: regular rate, regular rhythm, no gallops, no murmurs and no rub GI Common normals: Normal to inspection, nondistended, normoactive bowel sounds present and non-tender Extremity General: edema (1+ bipedal edema) DS: Data Data Completed and Pending Labs on day of discharge: Labs from last 24 hours 03/11/25 03/10/25 03/10/25 06:23 20:45 16:54 WBC 7.4 RBC 3.03 L Hgb 9.2 L Hct 31.1 L MCV 102.6 H MCH 30.4 MCHC 29.6 L RDW 15.6 H Plt Count 216 MPV 10.5 Seg Neuts % (Manual) 73.0 Band Neutrophils % 6.0 H Lymphocytes % (Manual) 12.0 L Monocytes % (Manual) 2.0 Eosinophils % (Manual) 1.0 Basophils % (Manual) 1.0 Metamyelocytes % 5.0 Neutrophils # (Manual) 5.40 Band Neutrophils # 0.4 H Lymphocytes # (Manual) 0.88 L Monocytes # (Manual) 0.14 L Eosinophils # (Manual) 0.07 Basophils # (Manual) 0.07 Metamyelocytes # 0.37 Anisocytosis 1+ Sodium 147 H Potassium 5.2 H Chloride 112 H Carbon Dioxide 27.6 Anion Gap 12.6 BUN 57.0 H Creatinine 1.83 H Est GFR ( Amer) 32 L Est GFR (Non-Af Amer) 26 L BUN/Creatinine Ratio 31.1 Glucose 113 H Calcium 9.1 Magnesium 2.3 Total Bilirubin 0.2 AST 16 ALT 11 L Alkaline Phosphatase 77 Total Protein 5.7 L Albumin 2.4 L Globulin 3.3 Albumin/Globulin Ratio 0.7 POC Glucose 109 H 107 H Preliminary micro results at discharge 03/07/25 14:11 Aerobic Susc Result 2 - Preliminary Blood - Right Antecubital Anaerobe Identification - Preliminary 03/07/25 14:11 Blood Culture Result 2 - Preliminary Blood 03/07/25 14:04 Blood Culture Result 1 - Preliminary Blood NO GROWTH AT 36-48 HOURS. FINAL TO FOLLOW. 03/07/25 13:15 Urine Culture - Preliminary Urine,Clean Catch Pending - Specimen sent to [facility] Discharge Plan Discharge Disposition: Hospice - Medical Facility Condition: Fair Discharge Medications: Continued aspirin 81 mg tablet,delayed release (DR/EC) 81 mg PO DAILY atorvastatin 80 mg tablet 80 mg PO DAILY insulin lispro 100 unit/mL insulin pen 6 unit subcut BIDWM theophylline 400 mg tablet extended release 24 hr 400 mg PO .QHS montelukast 10 mg tablet 10 mg PO .QHS fluticasone furoate-vilanterol [Breo Ellipta] 200-25 mcg/dose blister with device 1 inh INHALATION Q24H pregabalin [Lyrica] 75 mg capsule 75 mg PO DAILY insulin glargine [Lantus Solostar U-100 Insulin] 100 unit/mL (3 mL) insulin pen 46 unit SUBCUT .qhs Ensure Active Protein-Muscle Liquid 1 ea PO TID pantoprazole [Protonix] 40 mg tablet,delayed release (DR/EC) 40 mg PO DAILY Qty: 30 11RF lisinopril 40 mg tablet 40 mg PO DAILY ondansetron 4 mg tablet,disintegrating 4 mg PO Q6H PRN (Reason: nausea and vomiting) hydroxyzine HCl 25 mg tablet 25 mg PO QID PRN (Reason: itching) sennosides [Black-Draught Lax-Senna] 8.6 mg tablet 8.6 mg PO BID carvedilol 12.5 mg Tablet 25 mg PO BID acetaminophen 500 mg tablet 1,000 mg PO .q8hr PRN (Reason: pain) albuterol 90 mcg/actuation aerosol 90 mcg inhalation Q4H PRN (Reason: sob) baclofen 10 mg tablet 10 mg PO TID Qty: 0 0RF allopurinol 100 mg tablet 200 mg PO .QD prednisone 20 mg tablet 20 mg PO BID 7 Days Qty: 14 0RF cephalexin 250 mg capsule 250 mg PO Q12H 7 Days Qty: 14 0RF Print Language: Estonian 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, inpatient hospice unit. Forms: Portal Instructions
== END 2025-03-11 12:51 | disposition hospice, inpatient (51) | DRG 690 ==
LOC: ER 14:01 → MS 15:09
PROVIDERS: Admitting Provider Family Medicine; Emergency Provider Emergency Medicine; PCP Family Medicine; Visit Provider Family Medicine
DX: N39.0 Urinary tract infection, site not specified (principal); N17.9 Acute kidney failure, unspecified; J96.11 Chronic respiratory failure with hypoxia; Z68.42 Body mass index [BMI] 45.0-49.9, adult; E87.5 Hyperkalemia; D50.9 Iron deficiency anemia, unspecified; I12.9 Hypertensive chronic kidney disease with stage 1 through stage 4 chronic kidney disease, or unspecified chronic kidney disease; J44.9 Chronic obstructive pulmonary disease, unspecified; R53.1 Weakness; E11.22 Type 2 diabetes mellitus with diabetic chronic kidney disease; E11.65 Type 2 diabetes mellitus with hyperglycemia; N18.32 Chronic kidney disease, stage 3b; E66.01 Morbid (severe) obesity due to excess calories; R41.82 Altered mental status, unspecified; Z86.19 Personal history of other infectious and parasitic diseases; B96.20 Unspecified Escherichia coli [E. coli] as the cause of diseases classified elsewhere; R45.1 Restlessness and agitation; E78.00 Pure hypercholesterolemia, unspecified; Z79.82 Long term (current) use of aspirin; Z79.4 Long term (current) use of insulin; Z79.899 Other long term (current) drug therapy; Z87.440 Personal history of urinary (tract) infections; K21.9 Gastro-esophageal reflux disease without esophagitis; Z90.710 Acquired absence of both cervix and uterus; Z90.49 Acquired absence of other specified parts of digestive tract; M48.062 Spinal stenosis, lumbar region with neurogenic claudication; D64.9 Anemia, unspecified
CPT/HCPCS: 36415; 51702; 51798; 71045; 80048; 80053; 81001; 82607; 82728; 82746; 82948; 83540; 83550; 83735; 85007; 85025; 85027; 87040; 87077; 87086; 87088; 87150; 87186; 93005; 94640; 94761; 96365; 97165; 99285; G0328; J0360; J0696; J1650; J1756; J2020; J2060; J3475; J3486; J7512